=== PATIENT | female | born 1965 | race Caucasian/White ===

== ENCOUNTER 2023-02-18 21:18 | Emergency (ER) | payer BC, SELFPAY ==
[2023-02-18 21:25] VITALS: BP 161/103; PULSE 80; RESP 16; TEMP 37.1; O2SAT 98; BMI 27.5
--- NOTE | 2023-02-18 21:41 | ED_ITS ---
HPI - Abdominal Pain General Chief Complaint: Back Pain/Injury Stated Complaint: LOWER BACK PAIN, GROIN PAIN Time Seen by Provider: 02/18/23 21:31 Source: patient Mode of arrival: walk-in History of Present Illness HPI narrative: past history of colon CA. past partial colectomy. States she is scheduled for repeat CT 03/2023 to monitor her CA. Now presents complaining of left sided flank, LLQ and pelvic pain for past few days. No associated fever or urinary symptoms. Planning a trip at the end of the week and wanted to be checked before going on vacation MD elicited complaint: Reports abdominal pain Related Data Allergies Allergy/AdvReac Type Severity Reaction Status Date / Time No Known Drug Allergies Allergy Verified 02/18/23 21:32 Review of Systems ROS Status of ROS 10 or more systems reviewed and unremarkable except as noted in history and below PFSH PFS Social History Smoking status: Never smoker Exam Constitutional Vital Signs, click to edit/add: Last Vital Signs Temp 98.7 F 02/18/23 21:25 Pulse 80 02/18/23 21:25 Resp 16 02/18/23 21:25 BP 161/103 H 02/18/23 21:25 Pulse Ox 98 02/18/23 21:25 O2 Del Method Room Air 02/18/23 21:25 Common normals: no apparent distress, average body habitus, oriented x3, no limitations, healthy appearing, alert and well nourished Eye Common normals: EOMs intact bilaterally, conjunctivae normal and no scleral icterus Respiratory Common normals: normal respiratory effort, no retractions, no use of accessory muscles and clear to auscultation bilaterally Cardio Common normals: regular rate, regular rhythm, S1 normal heart sound and S2 normal heart sound GI Other: mild tenderness LLQ Extremity Common normals: normal to inspection and full ROM Neuro Common normals: oriented x3, CN's II-XII intact bilaterally, moves all extremities, no focal motor deficits and no sensory deficits noted Psych Attitude: other (distressed about possible cause of her pain) Course Vital Signs Vital signs: Vital Signs Temperature 98.7 F 02/18/23 21:25 Pulse Rate 80 02/18/23 21:25 Respiratory Rate 16 02/18/23 21:25 Blood Pressure 161/103 H 02/18/23 21:25 Pulse Oximetry 98 02/18/23 21:25 Oxygen Delivery Method Room Air 02/18/23 21:25 Temperature 98.7 F 02/18/23 21:25 Pulse Rate 80 02/18/23 21:25 Respiratory Rate 16 02/18/23 21:25 Blood Pressure 161/103 H 02/18/23 21:25 Pulse Oximetry 98 02/18/23 21:25 Oxygen Delivery Method Room Air 02/18/23 21:25 MDM - Abdominal Pain MDM Narrative Medical decision making narrative: patient presents complaining of pain LLQ and pelvis area. concerned about possible recurrence of colon CA. CT with findings of pelvic congestion. Patient informed of the above. given Toradol to use for pain tonight and prescribed Judy ebrex. Advised to follow up with gynecology to discuss best way to manage her pelvic congestion Lab Data Labs: Lab Results 02/18/23 02/18/23 Range/Units 21:35 21:51 WBC 5.8 (4.0-11.0) 10^3/uL RBC 4.16 L (4.20-5.40) 10^6/uL Hgb 13.4 (12.0-16.0) g/dL Hct 40.6 (36.0-48.0) % MCV 97.6 (81.0-99.0) fL MCH 32.2 (26.7-34.0) pg MCHC 33.0 (29.9-35.2) g/dL RDW 12.3 (11.0-15.0) % Plt Count 202 (150-450) 10^3/uL MPV 10.3 (9.5-13.5) fL Neut % (Auto) 60.1 (43.0-75.0) % Lymph % (Auto) 30.0 (20.5-60.0) % [place] % (Auto) 7.1 (1.7-12.0) % Eos % (Auto) 2.1 (0.9-7.0) % Baso % (Auto) 0.5 (0.2-2.0) % Neut # (Auto) 3.5 (1.4-6.5) 10^3/uL Lymph # (Auto) 1.7 (1.2-3.8) 10^3/uL [place] # (Auto) 0.4 (0.3-0.8) 10^3/uL Eos # (Auto) 0.1 (0.0-0.7) 10^3/uL Baso # (Auto) 0.0 (0.0-0.1) 10^3/uL Abs Immat Gran (auto) 0.01 (0.00-0.03) 10^3/uL Imm/Tot Granulo (auto) 0.2 (0.0-0.5) % Sodium 139 (136-145) mmol/L Potassium 3.5 (3.5-5.1) mmol/L Chloride 102 (98-107) mmol/L Carbon Dioxide 27.9 (21.0-32.0) mmol/L Anion Gap 12.6 BUN 20.0 H (7.0-18.0) mg/dL Creatinine 0.99 (0.55-1.02) mg/dL Est GFR ( Amer) >60 (>=60) Est GFR (Non-Af Amer) 58 L (>=60) BUN/Creatinine Ratio 20.2 Glucose 117 H (74-106) mg/dL Calcium 9.0 (8.5-10.1) mg/dL Urine Color Yellow (YELLOW) Urine Clarity Clear (CLEAR) Urine pH 6.5 (5.0-9.0) Ur Specific [place] 1.020 (1.005-1.025) Urine Protein Negative (NEG/TRACE) mg/dL Urine Glucose (UA) Negative (NEGATIVE) mg/dL Urine Ketones Trace A (NEGATIVE) mg/dL Urine Occult Blood Negative (NEGATIVE) Urine Nitrite Negative (NEGATIVE) Urine Bilirubin Negative (NEGATIVE) Urine Urobilinogen 1.0 (0.2-1.0) EU/dL Ur Leukocyte Esterase Negative (NEGATIVE) Imaging Data CT scan - abdomen: My impression: Assigned Patient Location: ER Current Patient Location: ER Accession/Order Number: [id number] Exam Date: 02/18/2023 22:09 Report Date: 02/18/2023 22:59 At the request of: ASHLEY SWEENEY Procedure: CT abdomen pelvis w con EXAMINATION: CT ABDOMEN AND PELVIS WITH IV CONTRAST CLINICAL HISTORY: Left lower quadrant abdominal pain, radiating to the back, hip and groin TECHNIQUE: CT of the abdomen and pelvis was performed using standard technique, scanning from just above the dome of the diaphragm to the symphysis pubis. All CT scans at this facility use dose modulation, iterative reconstruction, and/or weight based dosing when appropriate to reduce radiation dose to as low as reasonably achievable. Contrast: IV: 100 ml of Omnipaque 300 COMPARISON: CT abdomen and pelvis 01/09/2022 and 03/07/2022 RESULT: Liver: 11 mm centrally enhancing lesion right hepatic lobe, stable since 2021 and likely represents a hemangioma. The liver demonstrates homogenous attenuation otherwise. Biliary: No bile duct dilation. Gallbladder is unremarkable. Spleen: No mass. No splenomegaly. Pancreas: No mass or duct dilation. Adrenals: No mass. Kidneys: No renal mass or suspicious enhancement. 2 mm left upper pole nonobstructing calculus. No hydronephrosis. GI tract: Postoperative changes of partial sigmoidectomy with rectosigmoid anastomosis. No bowel dilation or significant wall thickening. Moderate colonic stool. Lymph nodes: No abdominal or pelvic lymphadenopathy. Mesentery/Peritoneum: No ascites or mass. Retroperitoneum: No mass. Vasculature: The celiac axis and SMA are patent. The portal vein and branches, splenic vein, SMV, and hepatic veins are patent. Abdominal aortic atherosclerotic disease without aneurysm. Pelvis: No mass, ascites or fluid collection. Urinary bladder is unremarkable. Prominent periuterine vessels, more prominent on the left.. Tortuous and moderately dilated left ovarian vein (series 5 images 24-47). Bones/Soft Tissues: Degenerative changes. Lower thorax: Unremarkable. IMPRESSION: Multiple dilated periuterine vessels, more prominent on the left, with tortuous and dilated left ovarian vein, concerning for pelvic congestion syndrome. Electronically authenticated by: DEANN VILLARREAL Date: 02/18/2023 22:59 Discharge Plan Discharge Chief Complaint: Back Pain/Injury Clinical Impression: Female pelvic congestion syndrome Instructions: Pelvic Pain in Women (ED) Additional Instructions: follow up with gynecology as discussed Stand Alone Forms: Portal Instructions Referrals: Melissa Worthy MD [Primary Care Provider] - 1 week
[2023-02-18 21:49] LABS: Bilirubin Urine NEGATIVE (NEGATIVE); Blood Urine NEGATIVE (NEGATIVE); Clarity Urine CLEAR (CLEAR); Color Urine YELLOW (YELLOW); Glucose Urine UA NEGATIVE (NEGATIVE); Ketones Urine TRACE mg/dL (NEGATIVE); Leukocyte Esterase Urine NEGATIVE (NEGATIVE); Nitrite Urine NEGATIVE (NEGATIVE); Protein Urine NEGATIVE (NEG/TRACE); pH Urine 6.5 (5.0-9.0)
[2023-02-18 21:50] LABS: Urine Microscopic Indicated NO
[2023-02-18] MEDS: 0.9 % SODIUM CHLORIDE 1,000 ML 999 ML IV (21:56)
[2023-02-18 22:01] LABS: Basophils Percent Auto 0.5 % (0.2-2.0); Eosinophils Absolute Auto 0.1 10^3/uL (0.0-0.7); Eosinophils Percent Auto 2.1 % (0.9-7.0); Hematocrit 40.6 % (36.0-48.0); Hemoglobin 13.4 g/dL (12.0-16.0); Immature Granulocytes Abs Auto 0.01 10^3/uL (0.00-0.03); Immature Granulocytes Pct Auto 0.2 % (0.0-0.5); Lymphocytes Absolute Auto 1.7 10^3/uL (1.2-3.8); Mean Corpuscular Hemoglobin 32.2 pg (26.7-34.0); Mean Corpuscular Volume 97.6 fL (81.0-99.0); Mean Platelet Volume 10.3 fL (9.5-13.5); Monocytes Absolute Auto 0.4 10^3/uL (0.3-0.8); Monocytes Percent Auto 7.1 % (1.7-12.0); Neutrophils Absolute Auto 3.5 10^3/uL (1.4-6.5); Neutrophils Percent Auto 60.1 % (43.0-75.0); Platelet Count 202 10^3/uL (150-450); Red Blood Count 4.16 10^6/uL (4.20-5.40); Red Cell Distribution Width 12.3 % (11.0-15.0); White Blood Count 5.8 10^3/uL (4.0-11.0)
[2023-02-18 22:12] LABS: Anion Gap 12.6; BUN Creatinine Ratio 20.2; Carbon Dioxide 27.9 mmol/L (21.0-32.0); Chloride 102 mmol/L (98-107); Estimated GFR (African America >60 (>=60); Estimated GFR (Non-African Ame 58 (>=60); Glucose 117 mg/dL (74-106); Potassium 3.5 mmol/L (3.5-5.1); Sodium 139 mmol/L (136-145)
[2023-02-18] MEDS: KETOROLAC TROMETHAMINE 30 MG/ML VIAL IVP (22:58)
[2023-02-18] MEDS: KETOROLAC TROMETHAMINE 10 MG TABLET 20 MG PO (23:48)
== END 2023-02-18 23:51 | disposition home or self-care (01) ==
PROVIDERS: Emergency Provider Internal Medicine; PCP Family Medicine
DX: N94.89 Other specified conditions associated with female genital organs and menstrual cycle (principal); Z90.49 Acquired absence of other specified parts of digestive tract; Z85.038 Personal history of other malignant neoplasm of large intestine
CPT/HCPCS: 36415; 74177; 80048; 81003; 85025; 96374; 99285; Q9967

== ENCOUNTER 2023-02-19 14:03 | Outpatient (OUT) | payer BC, SELFPAY ==
--- NOTE | 2023-02-19 | US_ITS ---
The [address] [address] Patient Name: SHU GARDNER MRN: [id number] date: 1965 Sex: F Assigned Patient Location: US Current Patient Location: US Accession/Order Number: [id number] Exam Date: 02/19/2023 14:05 Report Date: 02/19/2023 16:42 At the request of: ALLISON TRAVIS Procedure: US pelvis transvaginal Ultrasound pelvis, non-obstetric CLINICAL: ABNORMAL CAT SCAN LLQ PAIN TECHNIQUE: Transvaginal pelvic ultrasound was performed. FINDINGS: Comparison: CT 02/18/2023 The uterus is anteverted and anteflexed in position. It measures 6.7 x 2.1 x 4.3 cm. Myometrium is mildly heterogeneous with a hypoechoic nodule along the right posterior upper uterine segment favoring an intramural fibroid and measures 1.1 x 1.0 x 0.6 cm. The endometrial complex measures 3 mm in thickness with a trace amount of fluid within the endometrium. Neither ovary is seen. Prominent vessels seen within the left adnexa measuring up to 3.6 mm diameter. No free pelvic fluid. US/US pelvis transvaginal IMPRESSION: 1. 1.1 cm hypoechoic structure in the right posterior uterine wall compatible with an intramural fibroid. 2. Endometrial complex thickness of 3 mm, which is within normal limits, but there is a tiny amount of nonspecific fluid in the endometrium. Repeat ultrasound recommended in 3 months and follow-up with gynecology. 3. Neither ovary is visualized. Incidentally noted are prominent vessels in the left adnexa measuring up to 3.6 mm diameter. This does not meet criteria for pelvic congestion syndrome by ultrasound criteria but this finding is better seen by CT 02/18/2023. Clinical follow-up. Electronically authenticated by: LEVY NEFF Date: 02/19/2023 16:42
== END 2023-02-19 14:04 | disposition home or self-care (01) ==
LOC: US 14:03
PROVIDERS: PCP Family Medicine; Visit Provider Obstetrics & Gynecology
DX: R10.32 Left lower quadrant pain (principal); R10.2 Pelvic and perineal pain
CPT/HCPCS: 76830

== ENCOUNTER 2023-03-17 13:05 | Outpatient (OUT) | payer BC, SELFPAY ==
--- NOTE | 2023-03-17 | XR_ITS ---
The [address] [address] Patient Name: SHU GARDNER MRN: [id number] date: 1965 Sex: F Assigned Patient Location: RAD Current Patient Location: RAD Accession/Order Number: [id number] Exam Date: 03/17/2023 13:22 Report Date: 03/17/2023 15:06 At the request of: CLINT JEAN BAPTISTE Procedure: XR chest 2V EXAM: XR chest 2V HISTORY: Port problems , Neoplasm of sigmoid colon C18.7 COMPARISON: None. TECHNIQUE: PA and lateral views of the chest. FINDINGS: The cardiomediastinal silhouette is normal. Left-sided Mediport with the distal tip in SVC. No focal consolidation is identified. There is no pneumothorax. No pleural effusion is noted. The osseous structures are intact. XR/XR chest 2V IMPRESSION: No acute cardiopulmonary process. Electronically authenticated by: JUAN JOSE HO Date: 03/17/2023 15:06
== END 2023-03-17 13:06 | disposition home or self-care (01) ==
LOC: RAD 13:06
PROVIDERS: PCP Family Medicine; Visit Provider Surgery
DX: C18.7 Malignant neoplasm of sigmoid colon (principal)
CPT/HCPCS: 71046

== ENCOUNTER 2023-05-01 14:09 | Outpatient (OUT) | payer BC, SELFPAY | END 2023-05-01 14:10 | disposition home or self-care (01) | LOC: PST 14:09 | PROVIDERS: PCP Family Medicine; Visit Provider Surgery | DX: Z01.818 Encounter for other preprocedural examination (principal); C18.7 Malignant neoplasm of sigmoid colon ==

== ENCOUNTER 2023-05-07 08:54 | Day surgery (SDC) | payer BC, SELFPAY ==
[2023-05-07 09:05] VITALS: BP 128/82; PULSE 69; RESP 16; TEMP 36.9; O2SAT 98; BMI 28.3
[2023-05-07] MEDS: LACTATED RINGER'S SOLUTION 1,000 ML 50 ML IV (09:11)
--- NOTE | 2023-05-07 09:44 | PM.GSPRC ---
Date of procedure: 05/07/23 Indications for Procedure: history of colon cancer Pre-op diagnosis: history of colon cancer Procedure: colonoscopy Findings: anastomosis at 20 cm Anesthesia: MAC Surgeon: Asher Jade Procedure Summary: PROCEDURE: The patient was taken to the Endoscopy Suite, placed in the left lateral recumbent position, given IV sedation as above. A rectal digital exam was performed. The sphincter tone was found to be normal. No rectal masses were appreciated. The Olympus video colonoscope was advanced under direct visualization to the rectum through the anastomosis at 20 cm to the descending colon, transverse colon and ascending colon to the ileocecal valve. The underside of the valve was seen. The appendiceal lumen was visualized. The scope was slowly withdrawn with air being desufflated as it was withdrawn. No gross tumors, polyps or diverticula were seen. The patient tolerated the procedure well and went to the Recovery Area in satisfactory condition. I recommend the patient use a bulk laxative on a regular basis and follow upPROCEDURE: The patient was taken to the Endoscopy Suite, placed in the left lateral recumbent position, given IV sedation as above. A rectal digital exam was performed. The sphincter tone was found to be normal. No rectal masses were appreciated. The Olympus video colonoscope was advanced under direct visualization to the rectum, sigmoid colon, descending colon, transverse colon and ascending colon to the ileocecal valve. The underside of the valve was seen. The scope was slowly withdrawn with air being desufflated as it was withdrawn. No gross tumors, polyps or diverticula were seen. The patient tolerated the procedure well and went to the Recovery Area in satisfactory condition. I recommend the patient use a bulk laxative on a regular basis and follow up as needed. every year five years normal scope was back normal. Surveillance colonoscopy as recommended in 3-5 years. Estimated blood loss (mL): 0 Complications: No Pathology: none sent Condition: stable Disposition: PACU
[2023-05-07 10:16] VITALS: BP 104/77; PULSE 71; RESP 16; TEMP 36.2; O2SAT 97
[2023-05-07 10:31] VITALS: BP 113/73; PULSE 68; RESP 16; O2SAT 97
[2023-05-07 10:46] VITALS: BP 96/63; PULSE 67; RESP 16; O2SAT 97
== END 2023-05-07 10:49 | disposition home or self-care (01) ==
PROVIDERS: PCP Family Medicine; Visit Provider Surgery
PROC: (CPT 45378; principal; 2023-05-07 09:00)
DX: Z85.038 Personal history of other malignant neoplasm of large intestine (principal); Z79.899 Other long term (current) drug therapy; Z87.891 Personal history of nicotine dependence; Z90.49 Acquired absence of other specified parts of digestive tract
CPT/HCPCS: 45378; J2704

== ENCOUNTER 2023-06-07 09:06 | Emergency (ER) | payer BC, SELFPAY ==
[2023-06-07 09:11] VITALS: BP 160/92; PULSE 75; RESP 18; TEMP 36.7; O2SAT 100; BMI 28.0
--- NOTE | 2023-06-07 09:27 | CT_ITS ---
The [address] [address] Patient Name: SHU GARDNER MRN: [id number] date: 1965 Sex: F Assigned Patient Location: ER Current Patient Location: ER Accession/Order Number: [id number] Exam Date: 06/07/2023 10:05 Report Date: 06/07/2023 10:38 At the request of: HECTOR FOSTER Procedure: CT head/brain wo con EXAMINATION: CT head/brain wo con HISTORY: headache ; scalp irritation COMPARISON: No relevant comparison available. TECHNIQUE: Axial CT images were obtained without IV contrast. Dose reduction techniques were achieved by using automated exposure control and/or adjustment of mA and/or kV according to patient size and/or use of iterative reconstruction technique. FINDINGS: BRAIN: No edema, hemorrhage, mass, acute infarction, or inappropriate atrophy. CSF SPACES: No hydrocephalus, subarachnoid hemorrhage, or mass. Appropriate for age. SKULL: No fracture, mass, or other significant visible lesion. SINUSES: No significant mucosal thickening or fluid on the limited views. ORBITS: No appreciable abnormality on the limited views. OTHER: Negative CT/CT head/brain wo con IMPRESSION: 1. Normal examination. Electronically authenticated by: NEDA COULTER Date: 06/07/2023 10:38
--- NOTE | 2023-06-07 09:28 | ED_ITS ---
HPI - General Adult General Chief complaint: Headache Stated complaint: HEADACHE Time Seen by Provider: 06/07/23 09:17 Source: patient Mode of arrival: walk-in Limitations: no limitations History of Present Illness HPI narrative: Patient presents with pain across the frontal scalp and radiation into the posterior neck and superior trapezii. No recent injury. She had previously been diagnosed with colon cancer. She had colectomy and chemotherapy and had a follow up colonoscopy 05/07/23, which was negative. Two days later she developed pain across the forehead. She saw her PCP, who told her she had fluid behind the ears, possibly sinusitis and prescribed Bactrim. The patient finished the antibiotic,. Initially she felt better but the pain subsequently worsened and expanded from the forehead to the neck and shoulders as described. Areas are not tender to the touch. She is concerned about a potentially serious etiology. She had a home covid test last week that was negative. She also saw her eye physician and had her eye pressures checked because of glaucoma history - they were negative. Related Data Home Medications Medication Instructions Recorded Confirmed brimonidine 0.2 % eye drops drp ophthalmic (eye) 05/01/23 celecoxib 200 mg capsule (Celebrex) 200 mg PO DAILY 05/01/23 05/07/23 cholecalciferol (vitamin D3) 25 1,000 unit PO DAILY 05/01/23 05/07/23 mcg (1,000 unit) capsule dorzolamide 22.3 mg-timolol 6.8 ophthalmic (eye) 05/01/23 mg/mL eye drops latanoprost 0.005 % eye drops drp ophthalmic (eye) 05/01/23 omega 0-pud-vji-fish oil 1,000 mg 1 cap PO DAILY 05/01/23 05/07/23 (120 mg-180 mg) capsule (Fish Oil) omeprazole 20 mg capsule,delayed 20 mg PO Q8H PRN heartburn 05/01/23 05/07/23 release ondansetron HCl 8 mg tablet 8 mg PO Q8H PRN nausea and vomiting 05/01/23 05/07/23 Allergies Allergy/AdvReac Type Severity Reaction Status Date / Time hydrocodone AdvReac Nausea Verified 06/07/23 09:20 quinoa AdvReac Abdominal Uncoded 06/07/23 09:20 Pain PFSH PFSH Medical History (Updated 06/07/23 @ 10:52 by Hector Foster) Abdominal pain ?R10.9 - Unspecified abdominal pain (ICD-10) Bradycardia ?R00.1 - Bradycardia, unspecified (ICD-10) Dry eyes ?H04.123 - Dry eye syndrome of bilateral lacrimal glands (ICD-10) Glaucoma ?H40.9 - Unspecified glaucoma (ICD-10) History of blood transfusion ?Z92.89 - Personal history of other medical treatment (ICD-10) Menopause ?Z78.0 - Asymptomatic menopausal state (ICD-10) Migraine ?G43.909 - Migraine, unspecified, not intractable, without status migrainosus (ICD-10) Port-A-Cath in place (05/22/22) ?Z95.828 - Presence of other vascular implants and grafts (ICD-10) bleeding ?O72.1 - Other immediate hemorrhage (ICD-10) Primary malignant neoplasm of sigmoid colon (~03/2022) ?C18.7 - Malignant neoplasm of sigmoid colon (ICD-10) Seasonal allergies ?J30.2 - Other seasonal allergic rhinitis (ICD-10) Surgical History (Updated 05/01/23 @ 10:07 by Theresa Aguayo NP) H/O section ?Z98.891 - History of uterine scar from previous surgery (ICD-10) H/O colonoscopy ?Z98.890 - Other specified postprocedural states (ICD-10) H/O dilation and curettage ?Z98.890 - Other specified postprocedural states (ICD-10) H/O wisdom tooth extraction ?K08.409 - Partial loss of teeth, unspecified cause, unspecified class (ICD- 10) History of colon resection (04/10/22) ?Z90.49 - Acquired absence of other specified parts of digestive tract (ICD- 10) History of hernia repair ?Z98.890 - Other specified postprocedural states (ICD-10) ?Z87.19 - Personal history of other diseases of the digestive system (ICD-10) Family History (Updated 05/01/23 @ 10:02 by Theresa Aguayo NP) Other Dementia Family history of diabetes mellitus Family history of hypertension Family history of myocardial infarction Heart disease Parkinson's disease dementia Social History (Updated 05/01/23 @ 10:07 by Theresa Aguayo NP) Within the past year, how often did you have a drink containing alcohol: 2-3 times a week Smoking status: Never smoker Non-prescribed substance use: denies use 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 afebrile General: Well-appearing and in no apparent distress. Skin: Warm, dry, no pallor noted. No rash. Head: Normocephalic, atraumatic. No sinus tenderness. Neck: Supple, non-tender. no cervical lymphadenopathy. No meningismus. Eye: Pupils are equal, round and EOMI. No scleral icterus. Ears, Nose, Mouth, and Throat: TMs are clear, no nasal mucosal hypertrophy. Oral mucosa is moist, no posterior oropharynx erythema, uvula is mid-line Cardiovascular: Regular Rate and Rhythm without murmur, gallop or rub. Respiratory: No accessory muscle use or respiratory distress. Lungs are clear to auscultation, no wheezing, rales or rhonchi Musculoskeletal: normal ROM GI: Abdomen is soft, non-distended. Normal bowel sounds. No tenderness to palpation. No rebound, guarding, or rigidity noted. Neurological: A&O x4. No cranial nerve dysfunction observed. No truncal atax ia. Moves all extremities. Sensation intact. Psychiatric: Cooperative and interactive. Normal mood and affect. Constitutional Vital Signs, click to edit/add: Last Vital Signs Temp 98.1 F 06/07/23 09:11 Pulse 59 L 06/07/23 10:09 Resp 16 06/07/23 10:09 BP 134/87 06/07/23 10:09 Pulse Ox 98 06/07/23 10:09 O2 Del Method Room Air 06/07/23 09:11 Course Vital Signs Vital signs: Vital Signs Temperature 98.1 F 06/07/23 09:11 Pulse Rate 75 06/07/23 09:11 Respiratory Rate 18 06/07/23 09:11 Blood Pressure 160/92 H 06/07/23 09:11 Pulse Oximetry 100 06/07/23 09:11 Oxygen Delivery Method Room Air 06/07/23 09:11 Temperature 98.1 F 06/07/23 09:11 Pulse Rate 59 L 06/07/23 10:09 Respiratory Rate 16 06/07/23 10:09 Blood Pressure 134/87 06/07/23 10:09 Pulse Oximetry 98 06/07/23 10:09 Oxygen Delivery Method Room Air 06/07/23 09:11 Medical Decision Making MDM Narrative Medical decision making narrative: peripheral IV established so that the patient received normal saline IV fluid, IV Toradol and IV Zofran. She was sent for noncontrast CT scan of the brain. Covid swab obtained. Covid negative. Head CT without any worrisome pathology. She felt only slightly better after initial ED treatment so I ordered IV Solumedrol and IV Benadryl. She was relived that the head CT did not show anything worrisome. She said that she has zofran and T3 at home. She will be discharged home with recommendation to stay hydrated, take zofran and T3 with the addition of benadryl and ibuprofen as needed. Lab Data Lab results reviewed: Yes I reviewed the patient's lab results Labs: Lab Results 06/07/23 Range/Units 09:50 SARS-CoV-2 (PCR) Negative (NEGATIVE) Imaging Data CT scan - head: Radiologist's impression: Patient Name: SHU GARDNER MRN: [id number] date: 1965 Sex: F Assigned Patient Location: ER Current Patient Location: ER Accession/Order Number: [id number] Exam Date: 06/07/2023 10:05 Report Date: 06/07/2023 10:38 At the request of: HECTOR FOSTER Procedure: CT head/brain wo con EXAMINATION: CT head/brain wo con HISTORY: headache ; scalp irritation COMPARISON: No relevant comparison available. TECHNIQUE: Axial CT images were obtained without IV contrast. Dose reduction techniques were achieved by using automated exposure control and/or adjustment of mA and/or kV according to patient size and/or use of iterative reconstruction technique. FINDINGS: BRAIN: No edema, hemorrhage, mass, acute infarction, or inappropriate atrophy. CSF SPACES: No hydrocephalus, subarachnoid hemorrhage, or mass. Appropriate for age. SKULL: No fracture, mass, or other significant visible lesion. SINUSES: No significant mucosal thickening or fluid on the limited views. ORBITS: No appreciable abnormality on the limited views. OTHER: Negative IMPRESSION: 1. Normal examination. Electronically authenticated by: NEDA COULTER Date: 06/07/2023 10:38 Discharge Plan Discharge Chief Complaint: Headache Clinical Impression: Headache Patient Disposition: Home, Self-Care Time of Disposition Decision: 10:52 Prescriptions / Home Meds: No Action latanoprost 0.005 % drops OPHTHALMIC (EYE) ondansetron HCl 8 mg tablet 8 mg PO Q8H PRN (Reason: nausea and vomiting) brimonidine 0.2 % drops OPHTHALMIC (EYE) omeprazole 20 mg capsule,delayed release(DR/EC) 20 mg PO Q8H PRN (Reason: heartburn) dorzolamide-timolol 22.3-6.8 mg/mL drops OPHTHALMIC (EYE) celecoxib [Celebrex] 200 mg capsule 200 mg PO DAILY cholecalciferol (vitamin D3) 25 mcg (1,000 unit) capsule 1,000 unit PO DAILY omega 6-yua-beu-fish oil [Fish Oil] 1,000 mg (120 mg-180 mg) capsule 1 cap PO DAILY Instructions: Acute Headache (ED) Stand Alone Forms: Portal Instructions Referrals: Melissa Worthy MD [Primary Care Provider] - 1 week
[2023-06-07] MEDS: 0.9 % SODIUM CHLORIDE 1,000 ML 1000 ML IV (09:53)
[2023-06-07] MEDS: KETOROLAC TROMETHAMINE 30 MG/ML VIAL IVP (09:54)
[2023-06-07] MEDS: ONDANSETRON PF 4 MG/2 ML VIAL IV (09:54)
[2023-06-07 10:07] LABS: SARS-CoV-2 Ag NEGATIVE (NEGATIVE)
[2023-06-07 10:09] VITALS: BP 134/87; PULSE 59; RESP 16; O2SAT 98
[2023-06-07] MEDS: METHYLPREDNISOLONE SOD SUCC PF 125 MG/2 ML VIAL IVP (11:25)
[2023-06-07] MEDS: HEPARIN SODIUM (PORCINE) PF LOCK FLUSH 500 UNIT/5 ML SYRINGE 250 UNIT IV (11:25)
[2023-06-07 11:43] VITALS: BP 129/86; PULSE 51; RESP 16; O2SAT 99
[2023-06-07 15:00] LABS: SARS-CoV-2 NAA NOT DETECTED (NOT DETECTE)
== END 2023-06-07 11:45 | disposition home or self-care (01) ==
PROVIDERS: Emergency Provider Emergency Medicine; PCP Family Medicine
DX: R51.9 Headache, unspecified (principal); Z79.899 Other long term (current) drug therapy; Z98.891 History of uterine scar from previous surgery; Z98.890 Other specified postprocedural states; Z90.49 Acquired absence of other specified parts of digestive tract; Z20.822 Contact with and (suspected) exposure to COVID-19
CPT/HCPCS: 70450; 87635; 87811; 96374; 96375; 99285; J2930

== ENCOUNTER 2023-06-12 09:09 | Outpatient (OUT) | payer BC, SELFPAY ==
--- NOTE | 2023-06-12 09:14 | CT_ITS ---
The [address] [address] Patient Name: SHU GARDNER MRN: [id number] date: 1965 Sex: F Assigned Patient Location: CT Current Patient Location: CT Accession/Order Number: [id number] Exam Date: 06/12/2023 10:25 Report Date: 06/12/2023 12:20 At the request of: ISAÍAS GARCIA Procedure: CT chest w con EXAM: CT chest w con HISTORY: Malignant Neoplasm Of Colon C18.9 COMPARISON: None. TECHNIQUE: CT imaging obtained through the chest with intravenous contrast. Coronal and axial MIP reformatted images obtained. FINDINGS: Heart size is normal. No pericardial effusion. Aberrant right subclavian artery, otherwise normal thoracic vasculature. No thoracic lymphadenopathy. Central tracheobronchial tree is patent. No pleural effusion or pneumothorax. No suspicious pulmonary nodule. Left chest wall port with catheter tip in the mid SVC. Bones and soft tissues: No suspicious bone findings. Multilevel degenerative changes and endplate Schmorl's nodes throughout the thoracic spine. Partially imaged upper abdomen: Limited. CT/CT chest w con IMPRESSION: No evidence for metastatic disease in the chest Electronically authenticated by: BILL PUGH Date: 06/12/2023 12:20
--- NOTE | 2023-06-12 09:14 | CT_ITS ---
The [address] [address] Patient Name: SHU GARDNER MRN: [id number] date: 1965 Sex: F Assigned Patient Location: CT Current Patient Location: CT Accession/Order Number: [id number] Exam Date: 06/12/2023 10:25 Report Date: 06/12/2023 12:27 At the request of: ISAÍAS GARCIA Procedure: CT abdomen pelvis w con EXAM: CT abdomen pelvis w con HISTORY: Malignant Neoplasm Of Colon C18.9 COMPARISON: CT from 01/09/2022. TECHNIQUE: Helical CT images from the lung bases through the symphysis pubis were obtained with contrast. Coronal and sagittal reformatted images were generated at a workstation for further assessment. FINDINGS: Lower chest: No consolidation. No pleural effusion or pneumothorax. Liver: No suspicious liver lesions. Redemonstrated right hepatic lobe lesion on series 6 image 26, measuring 12 mm with eccentric enhancement, not significantly changed since at least 01/09/2022, favoring a hemangioma. Portal veins appear patent. Gallbladder: No gallstones. No evidence of acute cholecystitis. Spleen: Normal size. Pancreas: No suspicious pancreatic lesions. The pancreatic duct is not dilated. Adrenal glands: No adrenal nodules. Kidneys: No hydronephrosis or obstructing renal stones. Bladder / Pelvic organs: Unremarkable. Bowel: No bowel wall thickening. The appendix is not visualized. There is no evidence for appendicitis. Resection changes from a sigmoid: And reanastomosis without evidence for masslike thickening or obstruction. There is a large colonic stool burden suggesting constipation are Lymph nodes: No retroperitoneal, mesenteric, or pelvic lymphadenopathy. Peritoneum / Retroperitoneum: No free fluid or air within the abdomen. Vessels: No infrarenal aortic aneurysm. There is moderate aortoiliac calcification. Bones and soft tissues: No suspicious lesion in the bones. There are degenerative facet changes throughout the lumbar spine. CT/CT abdomen pelvis w con IMPRESSION: Postsurgical changes of the sigmoid colon, without convincing evidence for metastatic disease. Large colonic stool burden suggesting constipation. Right hepatic lobe lesion with eccentric enhancement, seen since at least 01/09/2022, is most compatible with a hemangioma. Electronically authenticated by: BILL PUGH Date: 06/12/2023 12:27
[2023-06-12 11:08] LABS: Eosinophils Absolute Auto 0.1 10^3/uL (0.0-0.7); Eosinophils Percent Auto 1.5 % (0.9-7.0); Hematocrit 41.6 % (36.0-48.0); Hemoglobin 13.4 g/dL (12.0-16.0); Lymphocytes Absolute Auto 1.6 10^3/uL (1.2-3.8); Lymphocytes Percent Auto 41.4 % (20.5-60.0); Mean Corpuscular HGB Conc 32.2 g/dL (29.9-35.2); Mean Corpuscular Hemoglobin 31.6 pg (26.7-34.0); Mean Corpuscular Volume 98.1 fL (81.0-99.0); Mean Platelet Volume 10.4 fL (9.5-13.5); Monocytes Absolute Auto 0.3 10^3/uL (0.3-0.8); Monocytes Percent Auto 7.9 % (1.7-12.0); Neutrophils Absolute Auto 1.9 10^3/uL (1.4-6.5); Neutrophils Percent Auto 48.2 % (43.0-75.0); Platelet Count 204 10^3/uL (150-450); Red Blood Count 4.24 10^6/uL (4.20-5.40); White Blood Count 3.9 10^3/uL (4.0-11.0)
[2023-06-12 12:19] LABS: Alanine Aminotransferase 27 U/L (14-59); Albumin Globulin Ratio 1.2; Albumin Level 4.1 g/dL (3.4-5.0); Alkaline Phosphatase 79 U/L (46-116); Aspartate Amino Transferase 18 U/L (15-37); BUN Creatinine Ratio 33.3; Bilirubin Total 0.4 mg/dL (0.2-1.0); Calcium 9.1 mg/dL (8.5-10.1); Carbon Dioxide 29.2 mmol/L (21.0-32.0); Chloride 100 mmol/L (98-107); Estimated GFR (African America >60 (>=60); Estimated GFR (Non-African Ame >60 (>=60); Globulin 3.3 g/dL; Glucose 93 mg/dL (74-106); Potassium 4.2 mmol/L (3.5-5.1); Sodium 135 mmol/L (136-145); Total Protein 7.4 g/dL (6.4-8.2)
[2023-06-13 04:07] LABS: CEA 2.8 ng/mL (0.0-4.7)
== END 2023-06-12 09:10 | disposition home or self-care (01) ==
LOC: CT 09:09
PROVIDERS: PCP Family Medicine; Visit Provider Internal Medicine
DX: C18.9 Malignant neoplasm of colon, unspecified (principal)
CPT/HCPCS: 36415; 71260; 74177; 80053; 82378; 85025; Q9967

== ENCOUNTER 2023-08-25 09:22 | Outpatient (RCR) | payer BC, SELFPAY ==
[2023-08-25] MEDS: HEPARIN SODIUM (PORCINE) PF LOCK FLUSH 500 UNIT/5 ML SYRINGE IV (09:18)
[2023-08-25] MEDS: 0.9 % SODIUM CHLORIDE 10 ML SYRINGE - SALINE FLUSH IV (09:18)
[2023-08-25 09:36] VITALS: BP 140/82; PULSE 66; RESP 16; TEMP 37.4; O2SAT 97
--- NOTE | 2023-08-25 09:39 | PC.NURSE ---
0905: Pt. to [facility] amb. for port flush. Seated in recliner. VSS. Using sterile technique, left ant. port a cath accessed using 19 gauge Bowens needle. Flushes easily with good blood return. Flushed with Heparin 500units. Port de-accessed. Trace bleeding to site. Covered with sterile 2x2. Pt. tolerated with min. c/o disomfort. 0919: Pt. d/c'd amb. to home with son.
== END 2023-09-04 23:59 | disposition home or self-care (01) ==
LOC: INF 09:22
PROVIDERS: PCP Family Medicine; Visit Provider Internal Medicine
DX: Z45.2 Encounter for adjustment and management of vascular access device (principal)
CPT/HCPCS: G0463

== ENCOUNTER 2023-09-18 09:17 | Outpatient (OUT) | payer BC, SELFPAY ==
--- NOTE | 2023-09-18 09:22 | CT_ITS ---
[address] [address] Patient Name: SHU GARDNER MRN: [id number] date: 1965 Sex: F Assigned Patient Location: CT Current Patient Location: CT Accession/Order Number: [id number] Exam Date: 09/18/2023 10:30 Report Date: 09/18/2023 12:14 At the request of: NON-STAFF PHYSICIAN Procedure: CT abdomen pelvis w con EXAMINATION: CT chest w con, CT abdomen pelvis w con HISTORY: c18.9 malignant neoplasm of colon, Z01.89 ; follow-up COMPARISON: CT chest abdomen pelvis 06/12/2023, CT abdomen pelvis 01/09/2022 TECHNIQUE: Axial, Coronal, and Sagittal CT images were obtained without and/or with IV contrast as indicated by examination type. Dose reduction techniques were achieved by using automated exposure control and/or adjustment of mA and/or kV according to patient size and/or use of iterative reconstruction technique. FINDINGS: LUNGS: No visible pulmonary disease. PLEURA: No mass or effusion. VASCULATURE: No visible pulmonary arterial thrombus or attenuation. LEON: No mass or adenopathy. MEDIASTINUM: No mass or adenopathy. CARDIAC: No enlargement, pericardial thickening, or pericardial effusion. CHEST WALL: Port-A-Cath within anterior left chest wall with distal catheter tip in superior vena cava. No mass or axillary adenopathy. LIVER: Stable small anterior right hepatic lobe lesion favoring a hemangioma. BILIARY: No dilatation or calcification. PANCREAS: No lesion, fluid collection, ductal dilatation, or atrophy. SPLEEN: No enlargement or focal lesion. ADRENALS: No mass or enlargement. KIDNEYS: No mass, obstruction, or calcification. BOWEL/MESENTERY: Prior distal sigmoid resection and anastomosis. No visible mass, obstruction, or bowel wall thickening. Normal appendix. AORTA/VASCULAR: No aneurysm. RETROPERITONEUM: No mass or adenopathy. LYMPH NODES: No adenopathy. URINARY BLADDER: No visible focal wall thickening, lesion, or calculus. PELVIC ORGANS: No visible mass. Pelvic organs appropriate for patient age. ABDOMINAL WALL: Eventration of midline anterior abdominal wall at and below level of umbilicus likely secondary to prior surgery. BONES: No bony lesion or fracture. OTHER: Negative. CT/CT abdomen pelvis w con IMPRESSION: 1. No evidence of recurrent or metastatic disease within the chest, abdomen, pelvis. 2. Stable small lesion within anterior right hepatic lobe favoring a hemangioma. 3. Prior sigmoid resection and anastomosis; no suspicious findings. 4. Postsurgical mild eventration of the lower anterior abdominal wall. No hernia. Electronically authenticated by: NEDA COULTER Date: 09/18/2023 12:14
--- NOTE | 2023-09-18 09:23 | CT_ITS ---
[address] [address] Patient Name: SHU GARDNER MRN: [id number] date: 1965 Sex: F Assigned Patient Location: CT Current Patient Location: CT Accession/Order Number: [id number] Exam Date: 09/18/2023 10:30 Report Date: 09/18/2023 12:14 At the request of: NON-STAFF PHYSICIAN Procedure: CT chest w con EXAMINATION: CT chest w con, CT abdomen pelvis w con HISTORY: c18.9 malignant neoplasm of colon, Z01.89 ; follow-up COMPARISON: CT chest abdomen pelvis 06/12/2023, CT abdomen pelvis 01/09/2022 TECHNIQUE: Axial, Coronal, and Sagittal CT images were obtained without and/or with IV contrast as indicated by examination type. Dose reduction techniques were achieved by using automated exposure control and/or adjustment of mA and/or kV according to patient size and/or use of iterative reconstruction technique. FINDINGS: LUNGS: No visible pulmonary disease. PLEURA: No mass or effusion. VASCULATURE: No visible pulmonary arterial thrombus or attenuation. LEON: No mass or adenopathy. MEDIASTINUM: No mass or adenopathy. CARDIAC: No enlargement, pericardial thickening, or pericardial effusion. CHEST WALL: Port-A-Cath within anterior left chest wall with distal catheter tip in superior vena cava. No mass or axillary adenopathy. LIVER: Stable small anterior right hepatic lobe lesion favoring a hemangioma. BILIARY: No dilatation or calcification. PANCREAS: No lesion, fluid collection, ductal dilatation, or atrophy. SPLEEN: No enlargement or focal lesion. ADRENALS: No mass or enlargement. KIDNEYS: No mass, obstruction, or calcification. BOWEL/MESENTERY: Prior distal sigmoid resection and anastomosis. No visible mass, obstruction, or bowel wall thickening. Normal appendix. AORTA/VASCULAR: No aneurysm. RETROPERITONEUM: No mass or adenopathy. LYMPH NODES: No adenopathy. URINARY BLADDER: No visible focal wall thickening, lesion, or calculus. PELVIC ORGANS: No visible mass. Pelvic organs appropriate for patient age. ABDOMINAL WALL: Eventration of midline anterior abdominal wall at and below level of umbilicus likely secondary to prior surgery. BONES: No bony lesion or fracture. OTHER: Negative. CT/CT chest w con IMPRESSION: 1. No evidence of recurrent or metastatic disease within the chest, abdomen, pelvis. 2. Stable small lesion within anterior right hepatic lobe favoring a hemangioma. 3. Prior sigmoid resection and anastomosis; no suspicious findings. 4. Postsurgical mild eventration of the lower anterior abdominal wall. No hernia. Electronically authenticated by: NEDA COULTER Date: 09/18/2023 12:14
[2023-09-18 10:33] LABS: Basophils Absolute Auto 0.1 10^3/uL (0.0-0.1); Basophils Percent Auto 1.1 % (0.2-2.0); Eosinophils Absolute Auto 0.1 10^3/uL (0.0-0.7); Eosinophils Percent Auto 2.2 % (0.9-7.0); Hematocrit 42.5 % (36.0-48.0); Hemoglobin 13.5 g/dL (12.0-16.0); Immature Granulocytes Abs Auto 0.01 10^3/uL (0.00-0.03); Immature Granulocytes Pct Auto 0.2 % (0.0-0.5); Lymphocytes Absolute Auto 2.6 10^3/uL (1.2-3.8); Lymphocytes Percent Auto 56.8 % (20.5-60.0); Mean Corpuscular HGB Conc 31.8 g/dL (29.9-35.2); Mean Corpuscular Hemoglobin 31.5 pg (26.7-34.0); Mean Corpuscular Volume 99.1 fL (81.0-99.0); Mean Platelet Volume 11.1 fL (9.5-13.5); Monocytes Absolute Auto 0.4 10^3/uL (0.3-0.8); Monocytes Percent Auto 8.2 % (1.7-12.0); Neutrophils Absolute Auto 1.5 10^3/uL (1.4-6.5); Neutrophils Percent Auto 31.5 % (43.0-75.0); Platelet Count 196 10^3/uL (150-450); Red Blood Count 4.29 10^6/uL (4.20-5.40); Red Cell Distribution Width 12.2 % (11.0-15.0); White Blood Count 4.6 10^3/uL (4.0-11.0)
[2023-09-18 11:38] LABS: Alanine Aminotransferase 26 U/L (14-59); Albumin Globulin Ratio 1.2; Albumin Level 3.8 g/dL (3.4-5.0); Alkaline Phosphatase 89 U/L (46-116); Anion Gap 12.2; Aspartate Amino Transferase 19 U/L (15-37); BUN Creatinine Ratio 18.3; Bilirubin Total 0.4 mg/dL (0.2-1.0); Calcium 8.9 mg/dL (8.5-10.1); Chloride 105 mmol/L (98-107); Estimated GFR (African America >60 (>=60); Estimated GFR (Non-African Ame >60 (>=60); Globulin 3.3 g/dL; Glucose 84 mg/dL (74-106); Potassium 4.2 mmol/L (3.5-5.1); Sodium 142 mmol/L (136-145); Total Protein 7.1 g/dL (6.4-8.2)
[2023-09-19 04:07] LABS: CEA 2.8 ng/mL (0.0-4.7)
== END 2023-09-18 09:18 | disposition home or self-care (01) ==
LOC: CT 09:17
PROVIDERS: PCP Family Medicine
DX: C18.9 Malignant neoplasm of colon, unspecified (principal); Z01.89 Encounter for other specified special examinations
CPT/HCPCS: 36415; 71260; 74177; 80053; 82378; 85025; Q9967

== ENCOUNTER 2023-11-26 07:18 | Outpatient (RCR) | payer BC, SELFPAY ==
--- NOTE | 2023-11-26 09:19 | PC.NURSE ---
0900: Pt. to [facility] amb. for lab draw and port flush. Seated in recliner. Using sterile technique, left chest port accessed per this RN. Flushes easily and able to aspirate blood easily. Blood obtained for ordered labs. Port flushed with saline and Heparin 500 units. Port de-accessed. No bleeding from site. Covered with cotton ball prophylactically. Pt. tolerated without c/o. 0914: D/c'd amb. to home.
== END 2023-11-26 09:20 | disposition home or self-care (01) ==
LOC: INF 07:18
PROVIDERS: PCP Family Medicine; Visit Provider Internal Medicine
DX: Z45.2 Encounter for adjustment and management of vascular access device (principal)

== ENCOUNTER 2023-11-26 09:21 | Outpatient (RCR) | payer BC, SELFPAY ==
[2023-11-26] MEDS: HEPARIN SODIUM (PORCINE) PF LOCK FLUSH 500 UNIT/5 ML SYRINGE IV (09:18)
--- NOTE | 2023-11-26 09:24 | PC.NURSE ---
0900: Pt. to [facility] amb. for lab draw and port flush. Seated in recliner. Using sterile technique, left chest port accessed per this RN. Flushes easily and able to aspirate blood easily. Blood obtained for ordered labs. Port flushed with saline and Heparin 500 units. Port de-accessed. No bleeding from site. Covered with cotton ball prophylactically. Pt. tolerated without c/o. 0914: D/c'd amb. to home.
[2023-11-26 10:19] LABS: Estimated Average Glucose 94 mg/dL; Glycohemoglobin A1C 4.9 % (4.5-6.2)
[2023-11-26 10:23] LABS: Basophils Percent Auto 0.9 % (0.2-2.0); Eosinophils Absolute Auto 0.1 10^3/uL (0.0-0.7); Eosinophils Percent Auto 2.4 % (0.9-7.0); Hematocrit 41.5 % (36.0-48.0); Hemoglobin 13.4 g/dL (12.0-16.0); Immature Granulocytes Abs Auto 0.01 10^3/uL (0.00-0.03); Immature Granulocytes Pct Auto 0.2 % (0.0-0.5); Lymphocytes Absolute Auto 2.1 10^3/uL (1.2-3.8); Lymphocytes Percent Auto 44.7 % (20.5-60.0); Mean Corpuscular HGB Conc 32.3 g/dL (29.9-35.2); Mean Corpuscular Hemoglobin 31.5 pg (26.7-34.0); Mean Corpuscular Volume 97.4 fL (81.0-99.0); Mean Platelet Volume 11.4 fL (9.5-13.5); Monocytes Absolute Auto 0.4 10^3/uL (0.3-0.8); Monocytes Percent Auto 8.5 % (1.7-12.0); Neutrophils Percent Auto 43.3 % (43.0-75.0); Platelet Count 210 10^3/uL (150-450); Red Blood Count 4.26 10^6/uL (4.20-5.40); Red Cell Distribution Width 13.2 % (11.0-15.0); White Blood Count 4.6 10^3/uL (4.0-11.0)
[2023-11-26 11:26] LABS: Anion Gap 12.5; BUN Creatinine Ratio 28.1; Calcium 9.5 mg/dL (8.5-10.1); Carbon Dioxide 28.5 mmol/L (21.0-32.0); Chloride 105 mmol/L (98-107); Estimated GFR (African America >60 (>=60); Estimated GFR (Non-African Ame >60 (>=60); Glucose 100 mg/dL (74-106); Sodium 142 mmol/L (136-145)
[2023-11-26 11:27] LABS: Alanine Aminotransferase 29 U/L (14-59); Albumin Globulin Ratio 1.1; Albumin Level 3.9 g/dL (3.4-5.0); Alkaline Phosphatase 101 U/L (46-116); Aspartate Amino Transferase 19 U/L (15-37); Bilirubin Total 0.5 mg/dL (0.2-1.0); Chol HDL Ratio 5.8; Cholesterol 250 mg/dL (<=200); Globulin 3.5 g/dL; HDL Cholesterol 43 mg/dL (40-60); Total Protein 7.4 g/dL (6.4-8.2); Triglycerides 140 mg/dL (<=150)
[2023-11-26 11:28] LABS: Thyroid Stimulating Hormone 1.818 uIU/mL (0.358-3.740)
== END 2023-12-05 23:59 | disposition home or self-care (01) ==
LOC: INF 09:21
PROVIDERS: PCP Family Medicine; Visit Provider Family Medicine
DX: Z00.00 Encounter for general adult medical examination without abnormal findings (principal); Z45.2 Encounter for adjustment and management of vascular access device
CPT/HCPCS: 36591; 80053; 80061; 83036; 84443; 85025

== ENCOUNTER 2024-01-15 08:35 | Outpatient (OUT) | payer BC, SELFPAY ==
[2024-01-15 09:31] LABS: Basophils Absolute Auto 0.1 10^3/uL (0.0-0.1); Eosinophils Absolute Auto 0.1 10^3/uL (0.0-0.7); Eosinophils Percent Auto 1.8 % (0.9-7.0); Hematocrit 42.6 % (36.0-48.0); Hemoglobin 13.7 g/dL (12.0-16.0); Immature Granulocytes Abs Auto 0.01 10^3/uL (0.00-0.03); Immature Granulocytes Pct Auto 0.2 % (0.0-0.5); Lymphocytes Percent Auto 39.4 % (20.5-60.0); Mean Corpuscular HGB Conc 32.2 g/dL (29.9-35.2); Mean Corpuscular Hemoglobin 32.2 pg (26.7-34.0); Mean Platelet Volume 10.9 fL (9.5-13.5); Monocytes Absolute Auto 0.5 10^3/uL (0.3-0.8); Monocytes Percent Auto 9.1 % (1.7-12.0); Neutrophils Absolute Auto 2.4 10^3/uL (1.4-6.5); Neutrophils Percent Auto 48.5 % (43.0-75.0); Platelet Count 197 10^3/uL (150-450); Red Blood Count 4.26 10^6/uL (4.20-5.40); Red Cell Distribution Width 13.1 % (11.0-15.0)
[2024-01-15] MEDS: HEPARIN SODIUM (PORCINE) PF LOCK FLUSH 500 UNIT/5 ML SYRINGE IV (10:15)
--- NOTE | 2024-01-15 10:17 | CT_ITS ---
[address] [address] Patient Name: SHU GARDNER MRN: [id number] date: 1965 Sex: F Assigned Patient Location: CT Current Patient Location: CT Accession/Order Number: [id number] Exam Date: 01/15/2024 09:55 Report Date: 01/15/2024 11:08 At the request of: AMITA WASHINGTON Procedure: CT abdomen pelvis w con EXAMINATION: CT chest w con, CT abdomen pelvis w con HISTORY: Malignant Neoplasm Of Colon C18.9 COMPARISON: No relevant comparison available. TECHNIQUE: Axial, Coronal, and Sagittal CT images were obtained without and with IV contrast. Dose reduction techniques were achieved by using automated exposure control and/or adjustment of mA and/or kV according to patient size and/or use of iterative reconstruction technique. FINDINGS: LUNGS: Mild patchy infiltrate identified in the medial basilar segment of the right lower lobe. PLEURA: No mass or effusion. VASCULATURE: No visible pulmonary arterial thrombus or attenuation. LEON: No mass or adenopathy. MEDIASTINUM: No mass or adenopathy. CARDIAC: No enlargement or pericardial effusion Coronary arteries: Absent calcifications CHEST WALL: Accessed left Port-A-Cath LIVER: Stable focal hypodensity in the right hepatic lobe BILIARY: No dilatation or calcification. PANCREAS: No lesion, fluid collection, ductal dilatation, or atrophy. SPLEEN: No enlargement or focal lesion. ADRENALS: No mass or enlargement. KIDNEYS: No mass, obstruction, or calcification. BOWEL/MESENTERY: Partial sigmoid resection with reanastomosis. Nonobstructive bowel gas pattern. AORTA/VASCULAR: No aortic aneurysm. Moderate calcific atherosclerosis RETROPERITONEUM: No mass or adenopathy. ABDOMINAL WALL: Laxity of the ventral abdominal fascia at the level of the umbilicus with eventration BONES: No bony lesion or fracture. OTHER: Negative. CT/CT abdomen pelvis w con IMPRESSION: Mild right basilar infiltrate, consider atelectasis or pneumonia No new evidence of metastatic disease to the chest abdomen and pelvis Electronically authenticated by: SJ KERR Date: 01/15/2024 11:08
--- NOTE | 2024-01-15 10:17 | CT_ITS ---
[address] [address] Patient Name: SHU GARDNER MRN: [id number] date: 1965 Sex: F Assigned Patient Location: CT Current Patient Location: CT Accession/Order Number: [id number] Exam Date: 01/15/2024 09:55 Report Date: 01/15/2024 11:08 At the request of: AMITA WASHINGTON Procedure: CT chest w con EXAMINATION: CT chest w con, CT abdomen pelvis w con HISTORY: Malignant Neoplasm Of Colon C18.9 COMPARISON: No relevant comparison available. TECHNIQUE: Axial, Coronal, and Sagittal CT images were obtained without and with IV contrast. Dose reduction techniques were achieved by using automated exposure control and/or adjustment of mA and/or kV according to patient size and/or use of iterative reconstruction technique. FINDINGS: LUNGS: Mild patchy infiltrate identified in the medial basilar segment of the right lower lobe. PLEURA: No mass or effusion. VASCULATURE: No visible pulmonary arterial thrombus or attenuation. LEON: No mass or adenopathy. MEDIASTINUM: No mass or adenopathy. CARDIAC: No enlargement or pericardial effusion Coronary arteries: Absent calcifications CHEST WALL: Accessed left Port-A-Cath LIVER: Stable focal hypodensity in the right hepatic lobe BILIARY: No dilatation or calcification. PANCREAS: No lesion, fluid collection, ductal dilatation, or atrophy. SPLEEN: No enlargement or focal lesion. ADRENALS: No mass or enlargement. KIDNEYS: No mass, obstruction, or calcification. BOWEL/MESENTERY: Partial sigmoid resection with reanastomosis. Nonobstructive bowel gas pattern. AORTA/VASCULAR: No aortic aneurysm. Moderate calcific atherosclerosis RETROPERITONEUM: No mass or adenopathy. ABDOMINAL WALL: Laxity of the ventral abdominal fascia at the level of the umbilicus with eventration BONES: No bony lesion or fracture. OTHER: Negative. CT/CT chest w con IMPRESSION: Mild right basilar infiltrate, consider atelectasis or pneumonia No new evidence of metastatic disease to the chest abdomen and pelvis Electronically authenticated by: JS KERR Date: 01/15/2024 11:08
[2024-01-15 11:04] LABS: Alanine Aminotransferase 22 U/L (14-59); Albumin Globulin Ratio 1.1; Alkaline Phosphatase 90 U/L (46-116); Aspartate Amino Transferase 21 U/L (15-37); BUN Creatinine Ratio 21.7; Bilirubin Total 0.6 mg/dL (0.2-1.0); Calcium 9.6 mg/dL (8.5-10.1); Carbon Dioxide 26.2 mmol/L (21.0-32.0); Chloride 102 mmol/L (98-107); Estimated GFR (African America >60 (>=60); Estimated GFR (Non-African Ame >60 (>=60); Globulin 3.6 g/dL; Glucose 107 mg/dL (74-106); Potassium 4.2 mmol/L (3.5-5.1); Sodium 136 mmol/L (136-145); Total Protein 7.6 g/dL (6.4-8.2)
[2024-01-16 13:11] LABS: CEA 2.8 ng/mL (0.0-4.7)
== END 2024-01-15 08:36 | disposition home or self-care (01) ==
LOC: CT 08:35
PROVIDERS: PCP Family Medicine; Visit Provider Nurse Practitioner Gerontology
DX: C18.9 Malignant neoplasm of colon, unspecified (principal); R91.8 Other nonspecific abnormal finding of lung field
CPT/HCPCS: 36415; 71260; 74177; 80053; 82378; 85025; J1642; Q9966; Q9967

== ENCOUNTER 2024-03-09 14:56 | Outpatient (RCR) | payer BC, SELFPAY | END 2024-04-27 10:08 | disposition home or self-care (01) | LOC: PT 14:56 | PROVIDERS: PCP Family Medicine; Visit Provider Family Medicine | DX: M54.2 Cervicalgia (principal) | CPT/HCPCS: 20561; 97110; 97112; 97140; 97162 ==

== ENCOUNTER 2024-08-24 11:49 | Outpatient (OUT) | payer BC, SELFPAY ==
--- NOTE | 2024-08-24 | CT_ITS ---
The [address] [address] Patient Name: SHU GARDNER MRN: [id number] date: 1965 Sex: F Assigned Patient Location: CT Current Patient Location: CT Accession/Order Number: [id number] Exam Date: 08/24/2024 14:42 Report Date: 08/24/2024 15:32 At the request of: ISAÍAS GARCIA Procedure: CT chest w con CT CHEST, ABDOMEN AND PELVIS WITH CONTRAST CLINICAL DATA: Restaging of colon cancer COMPARISON: 01/05/2024 Spiral images were obtained through the chest, abdomen and pelvis following oral and 100 mL Isovue 300. Patient also received oral contrast. Images of the chest were reviewed using both narrow and wide window settings. This CT exam was performed using one or more following dose reduction techniques: Automated exposure control, adjustment of the mA and/or kV according to patient size, or use of iterative reconstruction technique. The heart is normal in size. A trace amount of pericardial fluid is present. No aortic aneurysm or dissection is seen. No lymphadenopathy is identified. There is subtle dextroscoliotic curvature and minimal endplate spurring. No consolidation, pleural effusion or pneumothorax is visualized. No pulmonary nodularity is noted. There is fatty infiltration of the liver. A similar 11 mm hypodensity is again seen within the right hepatic lobe, possibly hemangioma.. No new intrahepatic masses are seen. There are no calcified gallstones. The spleen, pancreas and adrenal glands show no acute findings. There are symmetric renal nephrograms, without hydronephrosis. The abdominal aorta is normal caliber and there is atherosclerotic plaque. No enlarged lymph nodes or ascites are seen. There is an umbilical hernia containing fat and a knuckle of nondistended small bowel. The remaining small bowel loops are not dilated. Stool is present throughout the colon. There is subtle levoscoliotic curvature and mild degenerative changes at the spine. Images through the pelvis show normal caliber small bowel loops. The appendix is not identified with certainty. There is a sigmoid anastomosis. Distal colonic stool is visualized. No diverticular disease is seen. The uterus is slightly levoverted. There are no adnexal cysts. No urinary bladder abnormalities are present for the degree of distention. No ascites or lymphadenopathy is noted. CT/CT chest w con IMPRESSION: FATTY LIVER WITH STABLE RIGHT HYPODENSITY. NO RECURRENT OR METASTATIC MALIGNANCY. NO ACUTE FINDINGS. Impression dictated by: Kimberley Perez M.D.08/24/2024 3:32 PM Dictation Location: [place] [address] Electronically authenticated by: [id number] Y Date: 08/24/2024 15:32
--- OUTSIDE RECORDS SUMMARY | 2024-08-24 12:10 | XMS_ITS | CCD ---
Author Organization [facility] Care Team Providers Care In School Suspension Coordinator Name Role Phone DO Isaías Jordan II Attending Provider [phone] DO Clint Jean Baptiste Referring Provider MD Sandro Chin Primary Care Provider DO Isaías Jordan II Attending Provider [phone] NON STAFF Primary Care Provider DO Clint Amos Referring Provider MD Sandro Chin Primary Care Provider DO Clint Jean Baptiste Referring Provider MD Sandro Chin Primary Care Provider DO Clint Jean Baptiste Referring Provider MD Sandro Chin Primary Care Provider RADHA, ISAÍAS J Admitting Unavailable CHIQUISICZ, ISAÍAS J Attending DR SANDRO Thapa Primary Care Unavailable RADHA, ISAÍAS Seals Consulting DR SANDRO Thapa Primary Care Unavailable ADAMOWICZ, ISAÍAS Arnel Admitting Unavailable ADAMOWICZ, ISAÍAS J Attending Unavailable CHIQUISICZ, ISAÍAS J Consulting Unavailable CHIQUISICZ, ISAÍAS J Admitting Unavailable CHIQUISICZ, ISAÍAS J Attending Unavailable DR SANDRO CHIN Primary Care Unavailable RADHA, ISAÍAS Seals Consulting Unavailable ITA ., DR CLINT Ernst Admitting Unavaila ble ITA ., DR CLINT Ernst Attending Unavaila brent CHIN, DR SANDRO Ernst Primary Care Unavailable ITA ., DR CLINT Ernst Consulting Unavaila brent JEAN BAPTISTE ., DR CLINT Ernst Admitting Unavaila ble ITA ., DR CLINT Ernst Attending Unavaila ble CHIN, DR SANDRO Ernst Primary Care Unavailable GRILLIS ., DR CLINT Ernst Consulting Unavaila ble ADAMOWICZ, ISAÍAS J Admitting Unavailable ADAMOWICZ, ISAÍAS J Attending Unavailable CHIN, DR SANDRO Ernst Primary Care Unavailable ADAMOWICZ, ISAÍAS J Consulting Unavailable ADAMOWICZ, ISAÍAS J Admitting Unavailable ADAMOWICZ, ISAÍAS J Attending Unavailable CHIN, DR SANDRO Ernst Primary Care Unavailable ADAMOWICZ, ISAÍAS J Consulting Unavailable ADAMOWICZ, ISAÍAS J Attending Unavailable CHIN, DR SANDRO Ernst Primary Care Unavailable ADAMOWICZ, ISAÍAS J Consulting Unavailable ADAMOWICZ, ISAÍAS J Admitting Unavailable ADAMOWICZ, ISAÍAS J Admitting Unavailable ADAMOWICZ, ISAÍAS J Attending Unavailable CHIN, DR SANDRO Ernst Primary Care Unavailable ADAMOWICZ, ISAÍAS J Consulting Unavailable ADAMOWICZ, ISAÍAS J Admitting Unavailable ADAMOWICZ, ISAÍAS J Attending Unavailable CHIN, DR SANDRO Ernst Primary Care Unavailable ADAMOWICZ, ISAÍAS J Consulting Unavailable ADAMOWICZ, ISAÍAS J Admitting Unavailable ADAMOWICZ, ISAÍAS J Attending Unavailable CHNI, DR SANDRO Ernst Primary Care Unavailable ADAMOWICZ, ISAÍAS J Consulting Unavailable CHIN, DR SANDRO Ernst Admitting Unavailable IRVING GUPTA Attending Unavailable CHIN, DR SANDRO Ernst Primary Care Unavailable ADAMOWICZ, ISAÍAS J Admitting Unavailable ADAMOWICZ, ISAÍAS J Attending Unavailable CHIN, DR SANDRO Ernst Primary Care Unavailable ADAMOWICZ, ISAÍAS J Consulting Unavailable CHIN, DR SANDRO Ernst Admitting Unavailable CHIN, DR SANDRO Ernst Attending Unavailable CHIN, DR SANDRO Ernst Primary Care Unavailable ZIEBIVONNE, DR NEDA Gallo Consulting Unavailable CHIN, DR SANDRO Ernst Consulting Unavailable GRILLIS ., DR CLINT Ernst Admitting Unavaila ble GRILLIIgnacio ., DR CLINT Ernst Attending Unavaila ble CHIN, DR SANDRO Ernst Primary Care Unavailable GRILLIS ., DR CLINT Ernst Consulting Unavaila ble YFN, DR NEDA Gallo Consulting Unavailable ADAMOWICZ, ISAÍAS J Admitting Unavailable ADAMOWICZ, ISAÍAS J Attending Unavailable CHIN, DR SANDRO Ernst Primary Care Unavailable ADAMOWICZ, ISAÍAS J Consulting Unavailable ADAMOWICZ, ISÍAAS J Admitting Unavailable ADAMOWICZ, ISAÍAS J Attending Unavailable CHIN, DR SANDRO Ernst Primary Care Unavailable ADAMOWICZ, ISAÍAS J Consulting Unavailable GRILLIS ., DR CLINT Ernst Admitting Unavaila ble GRILLIIgnacio ., DR CLINT Ernst Attending Unavaila ble CHIN, DR SANDRO Ernst Primary Care Unavailable GRILLIS ., DR CLINT Ernst Consulting Unavaila ble KODI, CANDELARIO Consulting Unavailable GRILLIS ., DR CLINT Ernst Admitting Unavaila ble GRILLIS ., DR CLINT Ernst Attending Unavaila ble GIUSEPPE, DR SANDRO Ernst Primary Care Unavailable GRILLIS ., DR CLINT Ernst Consulting Unavaila ble GRILLIIgnacio ., DR CLINT Ernst Admitting Unavaila ble GRILLIIgnacio ., DR CLINT Ernst Attending Unavaila ble GIUSEPPE, DR SANDRO Ernst Primary Care Unavailable GRILLIS ., DR CLINT Ernst Consulting Unavaila ble ZIEBER, DR NEDA Gallo Consulting Unavailable KODI, CANDELARIO Consulting Unavailable SHARP, BERTHA Consulting Unavailable KUCHIPUDI, JOLENE Consulting Unavailable CHIN, DR SANDRO Ernst Primary Care Unavailable ALONSO, IRVING Babin Admitting Unavailable KATKO, IRVING Babin Attending Unavailable ALONSO, IRVING Babin Consulting Unavailable CHIN, DR SANDRO Ernst Primary Care Unavailable GRILLIS ., DR CLINT Ernst Consulting Unavaila ble HOY ., DR SHAHID Admitting Unavailable HOY ., DR SHAHID Attending Unavailable GRILLIS ., DR CLINT Ernst Procedure Practitioner U navailable HOMary ., DR SHAHID Consulting Unavailable NADERER, MINGO Lucero Consulting Unavailable MUKHERJEE, JOSHUA Consulting Unavailable MORGOS, SUZIE Consulting Unavailable SHARP, BERTHA Consulting Unavailable RAZIA, AUGUSTIN Consulting Unavailable GRILLIS ., DR CLINT Ernst Admitting Unavaila ble GRILLIIgnacio ., DR CLINT Ernst Attending Unavaila brent CHIN, DR SANDRO Ernst Primary Care Unavailable GRILLIIgnacio ., DR CLINT Ernst Consulting Unavaila SIAÍAS Kang Admitting Unavailable ISAÍAS JORDAN Attending Unavailable GIUSEPPE, DR SANDRO Ernst Primary Care Unavailable ISAÍAS JORDAN Consulting Unavailable Sandro Chin Unavailable DO Clint Jean Baptiste Referring Provider [phone] MD Sandro Chin Primary Care Provider [phone] OLIVIA Turner Attending Provider DO Clint Jean Baptiste Referring Provider [phone] MD Sandro Chin Primary Care Provider OLIVIA Turner Attending Provider Sandro Chin Primary Care Unavailable Clint Jean Baptiste Referring Unavailable Carlyn Turner Attending Unavail able Carlyn Turner Admitting Unavail able CLINT JEAN BAPTISTE Attending Unavailable SANDRO CHIN Referring Unavailable SANDRO CHIN Primary Care Unavailable CLINT JEAN BAPTISTE Attending Unavailable SANDRO CHIN Referring Unavailable SANDRO CHIN Primary Care Unavailable DK RICHARDSON Attending Unavailable SANDRO CHIN Referring Unavailable SANDRO CHIN Primary Care Unavailable Sandro Chin MD Primary Care Provider [phone] Allergies Allergy Classification Reported Allergen(s) Allergy Type Date of Onset Reaction(s) Facility (12 sources) HYDROcodone; Translations: [Hydrocodone] Drug Allergy [address] [facility] (1 source) Misc-Food; Translations: [Misc-Food] Food allergy (disorder) [facility] Rep[facility] (2 sources) Codeine; Translations: [CODEINE] Drug Allergy 3 GI Disturbance [facility] Repository Medications Current Medications Medication Drug Class(es) Dates Sig (Normalized) Sig (Original) acetaminophen 500 mg oral tablet (11 sources) Start: 05-03-2022 take 1000 mg by mouth once daily Acetaminophen Active 1000 MG PO Daily May 03, 2022 12:00am brimonidine tartrate 2 mg/ml ophthalmic solution (13 sources) alpha-Adrenergic Agonist Start: 05-02-2022 take 1 drop(s) into the eye(s) twice daily Brimonidine Active 1 DROPS EYE-BOTH Twice daily May 02, 2022 12:00am Start: 01-20-2022 take 0.2 drop(s) int o the eye(s) at bedtime brimonidine (ALPHAGAN) 0.2 % ophthalmic solution Administer 0.2 drops to both eyes in the morning and at bedtime. 01/20/2022 Active take 1 drop(s) into the eye(s) twice daily Brimonidine Tartrate 0.2 % 1 drop twice a day each eye Active celecoxib 200 mg oral capsule (6 sources) Nonsteroidal Anti-inflammatory Drug Start: 02-19-2023 take 1 capsule by mouth once daily Celecoxib (Celebrex) 200 mg Capsule Active 200 MG PO Daily 60 March 24, 2023 12:00am cholecalciferol 0.025 mg oral capsule (11 sources) Vitamin D Start: 05-27-2022 take 25 ug by mouth once daily Cholecalciferol (Vitamin D3) Active 25 MCG PO Daily May 27, 2022 1:00am cholecalciferol, vitamin D3, (VITAMIN D3 ORAL) (1 source) cholecalciferol, vitamin D3, (VITAMIN D3 ORAL) Take 1,000 mg by mouth. Active chondroitin sulfates 400 mg / glucosamine hydrochloride 500 mg oral tablet (1 source) take 1 tablet by mouth three times daily glucosamine-chondro itin 500-400 mg tablet Take 1 tablet by mouth 3 (three) times a day. Active diazePAM 5 mg oral tablet (1 source) Benzodiazepine Start: 03-03-2024 End: 03-03-2024 take 1 tablet by mouth once, then take 1 tablet by mouth every three hours diazePAM (VALIUM) 5 mg tablet Indications: History of colon cancer Take 1 tablet (5 mg total) by mouth once for 1 dose. Take 3 hr prior to procedure 1 tablet 03/03/2024 03/03/2024 Active [place] 0-Llw-Vef-Fish Oil (1 source) Start: 01-19-2024 take 300-1000 mg by mouth once daily [place] 5-Uub-Hzg-Fish Oil (Fish Oil) 300-1,000 mg capsule Active 1 CAP PO Daily January 19, 2024 12:00am dorzolamide 20 mg/ml / timolol 5 mg/ml ophthalmic solution (13 sources) Carbonic Anhydrase Inhibitor, beta-Adrenergic Mitchell Start: 05-02-2022 take 1 drop(s) into the eye(s) twice daily Dorzolamide-Timolol Active 1 DROPS EYE-BOTH Twice daily May 02, 2022 12:00am Start: 02-06-2022 dorzolamide-ti moloL (COSOPT) 22.3-6.8 mg/mL ophthalmic solution Administer 6.8 drops to both eyes in the morning and at bedtime. 02/06/2022 Active take 1 drop(s) into the eye(s) twice daily Cosopt 2-0.5 % 1 drop twice a day each eye Active glucosamine 500 mg oral tablet (1 source) Start: 01-19-2024 take 500 mg by mouth once daily Glucosamine Hcl Active 500 MG PO Daily January 19, 2024 12:00am administer with a meal latanoprost 0.05 mg/ml ophthalmic solution (13 sources) Prostaglandin Analog Start: 05-02-2022 take 1 drop(s) into the eye(s) once daily in the evening Latanoprost Active 1 DROPS EYE-BOTH Every evening May 02, 2022 12:00am Start: 12-22-2021 take 0.005 drop(s) i nto the eye(s) once daily latanoprost (XALATAN) 0.005 % ophthalmic solution Administer 0.005 drops to both eyes nightly. 12/22/2021 Active take 1 drop(s) into the eye(s) once daily Latanoprost 0.005 % 1 drop once a day each eye Active mv-mn/om3/dha/epa/fish/lut/z ea (OCUVITE ADULT 50 PLUS ORAL) (1 source) mv-mn/om3/dha/ep a/fish/lut/katheryn (OCUVITE ADULT 50 PLUS ORAL) Take by mouth daily. Active omega 3-jpv-neb-fish oil (Fi sh OiL) 300-1,000 mg capsule (1 source) omega 3-dha-epa- fish oil (Fish OiL) 300-1,000 mg capsule Take by mouth. Active omeprazole 20 mg delayed rel ease oral capsule (7 sources) Proton Pump Inhibitor Sta rt: omeprazole (PriLOSEC) 20 mg capsule PATIENT REPORTS NEEDED 01/16/2023 Active Start: 08-05-2022 take 20 mg by mouth once daily Omeprazole Magnesium (Prilosec) 10 mg Susp,Delayed Release For Recon Active 20 MG PO Daily 60 August 05, 2022 1:00am sulfamethoxazole 800 mg / trimethoprim 160 mg oral tablet (1 source) Dihydrofolate Reductase Inhibitor Antibacterial, Sulfonamide Antimicrobial Start: 05-19-2023 take 1 tablet by mouth every twelve hours Bactrim DS 800-160 MG 1 tablet Orally Twice a day for 10 day(s) May, Active Vitamin D3 (1 source) Vitamin D3 Active Completed/Discontinued Medications Medication Drug Class(es) Dates Sig (Normalized) Sig (Original) Ascorbic Acid (11 sources) Vitamin C Start: 05-27-2022 End: 11-17-2023 take 1 capsule by mouth once daily Ascorbic Acid (Vitamin C) Discontinued 1 CAP PO Daily May 27, 2022 1:00am November 17, 2023 9:47am Start: 05-27-2022 take 1 capsule by mo [facility] once daily Ascorbic Acid (Vitamin C) Active 1 CAP PO Daily May 27, 2022 1:00am Start: 05-27-2022 take 1 capsule by mo [facility] once daily Ascorbic Acid (Vitamin C) Active 1 CAP PO Daily May 27, 2022 12:00am Carica Papaya (Papaya Enzyme) Tablet (6 sources) Start: 08-19-2022 End: 06-25-2023 take 1 tablet by mouth once daily Carica Papaya (Papaya Enzyme) Tablet Discontinued 1 TAB PO Daily August 19, 2022 1:00am June 25, 2023 12:38pm Start: 08-19-2022 End: 06-25-2023 take 1 tablet by mouth once daily Carica Papaya (Papaya Enzyme) Tablet Discontinued 1 TAB PO Daily August 19, 2022 12:00am June 25, 2023 11:38am Start: 08-19-2022 take 1 tablet by [facility] once daily Carica Papaya (Papaya Enzyme) Tablet Active 1 TAB PO Daily August 19, 2022 12:00am Hvuyz-Kw-8-Utz-Lcv-Wzuedpc-A st (11 sources) Start: 05-02-2022 End: 05-03-2022 take 3 capsules by mouth once daily Rvisp-Hc-1-Xit-Olj-Lrfpmmf-Ast Discontinued 1 CAP PO Daily May 02, 2022 12:00am May 03, 2022 2:39pm Start: 05-02-2022 End: 05-03-2022 take 3 capsules by mouth once daily Itmaa-Id-5-Lgc-Fis-Iarmbwy-Ast Discontin ued 1 CAP PO Daily May 01, 2022 11:00pm May 03, 2022 1:39pm magnesium sulfate 0.0277 meq/ml / potassium sulfate 0.0374 meq/ml / sodium sulfate 0.257 meq/ml oral solution (1 source) Start: 03-19-2023 End: 03-03-2024 take 177 mL by mouth in the morning sodium,potassium,mag sulfates (SUPREP) 17.5-3.13-1.6 gram recon soln Take 177 mL by mouth in the morning and 177 mL before bedtime. 4956 mL 03/19/2023 03/03/2024 Discontinued (Therapy completed) ondansetron 8 mg oral tablet (12 sources) Serotonin-3 Receptor Antagonist Start: 05-03-2022 End: 03-03-2024 take 1 tablet by mouth every eight hours as needed ondansetron (ZOFRAN) 8 mg tablet Take 1 tablet (8 mg total) by mouth every 8 (eight) hours as needed. 05/03/2022 03/03/2024 Discontinued (Therapy completed) prochlorperazine 10 mg oral tablet (6 sources) Phenothiazine Start: 08-05-2022 End: 03-24-2023 take 1 tablet by mouth every six hours Prochlorperazine Maleate (Compazine) 10 mg Tablet Discontinued 10 MG PO Q6H 60 August 05, 2022 1:00am March 24, 2023 10:40am sod sulf-pot chloride-mag sulf 1.479-0.188- 0.225 gram tablet (1 source) Start: 03-19-2023 End: 03-02-2024 sod sulf-pot chloride-mag sulf 1.479-0.188- 0.225 gram tablet Indications: Primary malignant neoplasm of sigmoid colon (CMS-HCC) Please see instructional sheet given by physicians office. 24 tablet 03/19/2023 03/02/2024 Discontinued Vit C-E-Zinc Ng-Bfit-Bkm-Zeax (Icaps Areds2) 250 mg-200 unit -12.5 mg-1 mg Capsule (4 sources) Start: 06-25-2023 End: 11-17-2023 take 2 capsules by mouth once daily Vit C-E-Zinc Db-Rbpi-Dmp-Zeax (Icaps Areds2) 250 mg-200 unit -12.5 mg-1 mg Capsule Discontinued 2 CAP PO Daily June 25, 2023 1:00am November 17, 2023 9:48am Start: 06-25-2023 take 2 capsules by m outh once daily Vit C-E-Zinc Dp-Bxhb-Wyt-Zeax (Icaps Areds2) 250 mg-200 unit -12.5 mg-1 mg Capsule Active 2 CAP PO Daily June 25, 2023 1:00am Start: 06-25-2023 take 2 capsules by m outh once daily Vit C-E-Zinc Ji-Htlf-Owp-Zeax (Icaps Areds2) 250 mg-200 unit -12.5 mg-1 mg Capsule Active 2 CAP PO Daily June 25, 2023 12:00am Vitamin A-Vitamin C-Vit E-Min (Ocuvite) Tablet (11 sources) Start: 05-02-2022 End: 05-27-2022 take 1 tablet by mouth once daily Vitamin A-Vitamin C-Vit E-Min (Ocuvite) Tablet Discontinued 1 TAB PO Daily May 02, 2022 12:00am May 27, 2022 10:27am Start: 05-02-2022 End: 05-27-2022 take 1 tablet by mouth once daily Vitamin A-Vitamin C-Vit E-Min (Ocuvite) Tablet Discontinued 1 TAB PO Daily May 01, 2022 11:00pm May 27, 2022 9:27am Problems Active Problems Problem Classification Problem Date Documented Date Episodic/Chronic Bacterial infection; unspecified site (1 source) Other specified bacterial agents as the cause of diseases classified elsewhere Episodic Cancer of colon (20 sources) Malignant tumor of colon; Translations: [Malignant neoplasm of colon, unspecified] Onset: 04-17-2022 06-03-2022 Chronic Cancer of colon (2 sources) Personal history of other malignant neoplasm of large intestine; Translations: [History of malignant neoplasm of colon] Onset: 03-03-2024 03-03-2024 Episodic Conditions associated with dizziness or vertigo (1 source) Benign paroxysmal vertigo, unspecified ear Episodic Diseases of mouth; excluding dental (4 sources) Hypertrophy of salivary gland; Translations: [Hypertrophy of salivary gland] 11-17-2023 Episodic E Codes: Cut/pierceb (1 source) Contact with contaminated hypodermic needle, initial encounter; Translations: [CNTCT CONTAMINAT HYPODRM NEEDL INIT] Onset: 09-18-2022 Episodic Glaucoma (2 sources) Unspecified glaucoma; Translations: [Bilateral glaucoma] Onset: 04-22-2022 05-15-2022 Chronic Maintenance chemotherapy; radiotherapy (20 sources) Patient encounter status; Translations: [Encounter for antineoplastic chemotherapy] 06-03-2022 Chronic Open wounds of extremities (4 sources) Puncture wound without foreign body of left index finger without damage to nail, initial encounter; Translations: [PW W/O FB LT IF W/O DMG NAIL INIT] Onset: 09-01-2022 Episodic Other nervous system disorders (6 sources) Peripheral neuropathy due to and following chemotherapy; Translations: [Drug-induced polyneuropathy] 07-22-2022 Chronic Other nervous system disorders (5 sources) Drug-induced polyneuropathy; Translations: [Polyneuropathy due to other toxic agents] 08-19-2022 Chronic Other screening for suspected conditions (not mental disorders or infectious disease) (11 sources) Liver function tests abnormal; Translations: [Other specified abnormal findings of blood chemistry] 07-22-2022 Episodic Other upper respiratory infections (1 source) Acute sinusitis, unspecified Episodic Residual codes; unclassified (1 source) Contact with and (suspected) exposure to potentially hazardous body fluids; Translations: [CONTACT AND EXPOS POTENTL HAZ BDY FLUID] Onset: 09-18-2022 Episodic Residual codes; unclassified (1 source) Other specified postprocedural states; Translations: [Other specified postprocedural states] Onset: 03-25-2024 Episodic Secondary malignancies (1 source) Secondary and unspecified malignant neoplasm of lymph node, unspecified; Translations: [SEC AND UNS MAL JARON LYMPH NODE UNS] Onset: 04-22-2022 Chronic Unclassified (1 source) CONTACT W/AND (SUSP) EXPOS COVID-19; Translations: [CONTACT W/AND (SUSP) EXPOS COVID-19] Onset: 05-21-2022 Unclassified (1 source) Post-op Onset: 03-25-2024 Unclassified (1 source) Procedure Onset: 03-15-2024 Unclassified (1 source) PORT REMOVAL Onset: 03-03-2024 Past or Other Problems Problem Classification Problem Date Documented Da te Episodic/Chronic Abdominal pain (9 sources) Generalized abdominal pain; Translations: [Left lower quadrant pain] Onset: 01-09-2022 Episodic Other aftercare (1 source) Other group home (current) drug therapy; Translations: [OTH CO FOUNDER AND CHIEF STRATEGY OFFICER CURRENT DRUG THERAPY] Onset: 04-22-2022 Episodic Other circulatory disease (1 source) Elevated blood-pressure reading, without diagnosis of hypertension; Translations: [ELEVATED BP READING W/O DX HTN] Onset: 04-22-2022 Episodic Other complications of ; puerperium affecting management of mother (1 source) hemorrhage; Translations: [Other immediate hemorrhage] Onset: 05-15-2022 05-15-2022 Episodic Other female genital disorders (1 source) Pelvic congestion syndrome; Translations: [Other specified conditions associated with female genital organs and menstrual cycle] Onset: 02-20-2023 03-19-2023 Episodic Other nutritional; endocrine; and metabolic disorders (1 source) Abnormal weight loss; Translations: [ABNORMAL WEIGHT LOSS] Onset: 03-21-2022 Episodic Screening and history of mental health and substance abuse codes (1 source) Personal history of nicotine dependence; Translations: [PERSONAL HISTORY OF NICOTINE DEPEND] Onset: 03-21-2022 Episodic Results Test Name Value Interpretation Reference Range Facility Basophils Auto (Bld) [#/Vol] on 01-15-2024 Basophils (Bld) [#/Vol] 0.1 10 3/uL 0.0-0.1 [facility] Basophils/100 WBC Auto (Bld) on 01-15-2024 Basophils/100 WBC (Bld) 1.0 % 0.2-2.0 [facility] Eosinophils/100 WBC Auto (Bl d)on 01-15-2024 Eosinophils/100 WBC (Bld) 1.8 % 0.9-7.0 [facility] Erythrocyte distribution wid th Auto (RBC) [Ratio]on 01-15-2024 Erythrocyte distribution width (RBC) [Ratio] 13.1 % 11.0-15.0 [facility] Estimated glomerular filtrat ion rate (GFR) non- Americanon 01-15-2024 GFR/1.73 sq M.predicted among non-blacks MDRD (S/P/Bld) [Vol rate/Area] mL/min/{1.73_m2} >=60 [facility] Globulin Calc (S) [Mass/Vol] on 01-15-2024 Globulin (S) [Mass/Vol] 3.6 g/dL [facility] Hematocrit Auto (Bld) [Volum e fraction]on 01-15-2024 Hematocrit (Bld) [Volume fraction] 42.6 % 36.0-48.0 [facility] Hemoglobin [Mass/volume] in Bloodon 01-15-2024 Hemoglobin (Bld) [Mass/Vol] 13.7 g/dL 12.0-16.0 [facility] Laboratory - Chemistry and C hemistry - challengeon 01-15-2024 Albumin [Mass/Vol] 4.0 g/dL 3.4-5.0 [facility] ALP [Catalytic activity/Vol] 90 U/L 46-116 [facility] ALT [Catalytic activity/Vol] 22 U/L 14-59 [facility] AST [Catalytic activity/Vol] 21 U/L 15-37 [facility] Bilirubin [Mass/Vol] 0.6 mg/dL 0.2-1.0 [facility] Calcium [Mass/Vol] 9.6 mg/dL 8.5-10.1 [facility] Chloride [Moles/Vol] 102 mmol/L 98-107 [facility] CO2 [Moles/Vol] 26.2 mmol/L 21.0-32.0 [facility] Creatinine [Mass/Vol] 0.60 mg/dL 0.55-1.02 [facility] GFR/1.73 sq M.predicted MDRD (S/P/Bld) [Vol rate/Area] mL/min/{1.73_m2} >=60 [facility] Glucose [Mass/Vol] 107 mg/dL High 74-106 [facility] Potassium [Moles/Vol] 4.2 mmol/L 3.5-5.1 [facility] Protein [Mass/Vol] 7.6 g/dL 6.4-8.2 [facility] Sodium [Moles/Vol] 136 mmol/L 136-145 [facility] Urea nitrogen [Mass/Vol] 13.0 mg/dL 7.0-18.0 [facility] Urea nitrogen/Creatinine [Mass ratio] 21.7 mg/mg [facility] Laboratory - Hematology and Cell countson 01-15-2024 Immature granulocytes/100 WBC (Bld) 0.2 % 0.0-0.5 [facility] Leukocytes [#/volume] correc audrey for nucleated erythrocytes in Blood by Automated counon 01-15-2024 WBC corrected for nucl RBC Auto (Bld) [#/Vol] 5.0 10 3/uL 4.0-11.0 [facility] Lymphocytes Auto (Bld) [#/Vo l]on 01-15-2024 Lymphocytes (Bld) [#/Vol] 2.0 10 3/uL 1.2-3.8 [facility] Lymphocytes/100 WBC Auto (Bl d)on 01-15-2024 Lymphocytes/100 WBC (Bld) 39.4 % 20.5-60.0 [facility] MCH Auto (RBC) [Entitic mass ]on 01-15-2024 MCH (RBC) [Entitic mass] 32.2 pg 26.7-34.0 [facility] MCHC Auto (RBC) [Mass/Vol]on 01-15-2024 MCHC (RBC) [Mass/Vol] 32.2 g/dL 29.9-35.2 [facility] MCV Auto (RBC) [Entitic vol] on 01-15-2024 MCV (RBC) [Entitic vol] 100.0 fL High 81.0-99.0 [facility] Monocytes Auto (Bld) [#/Vol] on 01-15-2024 Monocytes (Bld) [#/Vol] 0.5 10 3/uL 0.3-0.8 [facility] Monocytes/100 WBC Auto (Bld) on 01-15-2024 Monocytes/100 WBC (Bld) 9.1 % 1.7-12.0 [facility] Neutrophils Auto (Bld) [#/Vo l]on 01-15-2024 Neutrophils (Bld) [#/Vol] 2.4 10 3/uL 1.4-6.5 [facility] Neutrophils/100 WBC Auto (Bl d)on 01-15-2024 Neutrophils/100 WBC (Bld) 48.5 % 43.0-75.0 [facility] No Panel Informationon 01-14 Eosinophils # (Auto) 0.1 10 3/uL 0.0-0.7 [facility] Immature Granulocyte # (Auto) 0.01 10 3/uL 0.00-0.03 [facility] Platelet mean volume Auto (B ld) [Entitic vol]on 01-15-2024 Platelet mean volume (Bld) [Entitic vol] 10.9 fL 9.5-13.5 [facility] Platelets Auto (Bld) [#/Vol] on 01-15-2024 Platelets (Bld) [#/Vol] 197 10 3/uL 150-450 [facility] RBC Auto (Bld) [#/Vol]on RBC (Bld) [#/Vol] 4.26 10 6/uL 4.20-5.40 [facility] Serum or plasma albumin/glob ulin mass ratioon 01-15-2024 Albumin/Globulin [Mass ratio] 1.1 {ratio} [facility] Serum or plasma anion gap de terminationon 01-15-2024 Anion gap [Moles/Vol] 12.0 mmol/L [facility] Basophils Auto (Bld) [#/Vol] on 11-26-2023 Basophils (Bld) [#/Vol] 0.0 10 3/uL 0.0-0.1 [facility] Basophils/100 WBC Auto (Bld) on 11-26-2023 Basophils/100 WBC (Bld) 0.9 % 0.2-2.0 [facility] Cholesterol in LDL Calc [Mas s/Vol]on 11-26-2023 Cholesterol in LDL [Mass/Vol] 179.0 mg/dL [facility] Comment on above: <100 mg/dl [id number] 0-129 mg/dl NEAR OR ABOVE [id number] mg/dl BORDERLINE [id number] mg/dl HIGH>190 mg/dl VERY HIGH Cholesterol in VLDL Calc [Ma ss/Vol]on 11-26-2023 Cholesterol in VLDL [Mass/Vol] 28.0 mg/dL [facility] Eosinophils/100 WBC Auto (Bl d)on 11-26-2023 Eosinophils/100 WBC (Bld) 2.4 % 0.9-7.0 [facility] Erythrocyte distribution wid th Auto (RBC) [Ratio]on 11-26-2023 Erythrocyte distribution width (RBC) [Ratio] 13.2 % 11.0-15.0 [facility] Estimated glomerular filtrat ion rate (GFR) non- Americanon 11-26-2023 GFR/1.73 sq M.predicted among non-blacks MDRD (S/P/Bld) [Vol rate/Area] mL/min/{1.73_m2} >=60 [facility] Globulin Calc (S) [Mass/Vol] on 11-26-2023 Globulin (S) [Mass/Vol] 3.5 g/dL [facility] Glucose mean value [Mass/vol ume] in Blood Estimated from glycated hemoglobinon 11-26-2023 Average glucose Estimated from glycated hemoglobin (Bld) [Mass/Vol] 94 mg/dL [facility] Hematocrit Auto (Bld) [Volum e fraction]on 11-26-2023 Hematocrit (Bld) [Volume fraction] 41.5 % 36.0-48.0 [facility] Hemoglobin [Mass/volume] in Bloodon 11-26-2023 Hemoglobin (Bld) [Mass/Vol] 13.4 g/dL 12.0-16.0 [facility] Laboratory - Chemistry and C hemistry - challengeon 11-26-2023 Albumin [Mass/Vol] 3.9 g/dL 3.4-5.0 [facility] ALP [Catalytic activity/Vol] 101 U/L 46-116 [facility] ALT [Catalytic activity/Vol] 29 U/L 14-59 [facility] AST [Catalytic activity/Vol] 19 U/L 15-37 [facility] Bilirubin [Mass/Vol] 0.5 mg/dL 0.2-1.0 [facility] Calcium [Mass/Vol] 9.5 mg/dL 8.5-10.1 [facility] Chloride [Moles/Vol] 105 mmol/L 98-107 [facility] Cholesterol [Mass/Vol] 250 mg/dL High <=200 [facility] Cholesterol in HDL [Mass/Vol] 43 mg/dL 40-60 [facility] Comment on above: > or =60 mg/dl - LOW CARDIOVASCULAR RISK<40 mg/dl - HIGH CARDIOVASCULAR RISK CO2 [Moles/Vol] 28.5 mmol/L 21.0-32.0 [facility] Creatinine [Mass/Vol] 0.57 mg/dL 0.55-1.02 [facility] GFR/1.73 sq M.predicted MDRD (S/P/Bld) [Vol rate/Area] mL/min/{1.73_m2} >=60 [facility] Glucose [Mass/Vol] 100 mg/dL 74-106 [facility] Potassium [Moles/Vol] 4.0 mmol/L 3.5-5.1 [facility] Protein [Mass/Vol] 7.4 g/dL 6.4-8.2 [facility] Sodium [Moles/Vol] 142 mmol/L 136-145 [facility] Triglyceride [Mass/Vol] 140 mg/dL <=150 [facility] TSH Qn 1.818 m[IU]/L 0.358-3.740 [facility] Urea nitrogen [Mass/Vol] 16.0 mg/dL 7.0-18.0 [facility] Urea nitrogen/Creatinine [Mass ratio] 28.1 mg/mg [facility] Laboratory - Hematology and Cell countson 11-26-2023 HbA1c (Bld) [Mass fraction] 4.9 % 4.5-6.2 [facility] Comment on above: ADA RECOMMENDED LIMI T 4.0 - 6.0ADA THERAPEUTIC TARGET < 7.0ACTION SUGGESTED> 7.0 Immature granulocytes/100 WBC (Bld) 0.2 % 0.0-0.5 [facility] Leukocytes [#/volume] correc audrey for nucleated erythrocytes in Blood by Automated counon 11-26-2023 WBC corrected for nucl RBC Auto (Bld) [#/Vol] 4.6 10 3/uL 4.0-11.0 [facility] Lymphocytes Auto (Bld) [#/Vo l]on 11-26-2023 Lymphocytes (Bld) [#/Vol] 2.1 10 3/uL 1.2-3.8 [facility] Lymphocytes/100 WBC Auto (Bl d)on 11-26-2023 Lymphocytes/100 WBC (Bld) 44.7 % 20.5-60.0 [facility] MCH Auto (RBC) [Entitic mass ]on 11-26-2023 MCH (RBC) [Entitic mass] 31.5 pg 26.7-34.0 [facility] MCHC Auto (RBC) [Mass/Vol]on 11-26-2023 MCHC (RBC) [Mass/Vol] 32.3 g/dL 29.9-35.2 [facility] MCV Auto (RBC) [Entitic vol] on 11-26-2023 MCV (RBC) [Entitic vol] 97.4 fL 81.0-99.0 [facility] Monocytes Auto (Bld) [#/Vol] on 11-26-2023 Monocytes (Bld) [#/Vol] 0.4 10 3/uL 0.3-0.8 [facility] Monocytes/100 WBC Auto (Bld) on 11-26-2023 Monocytes/100 WBC (Bld) 8.5 % 1.7-12.0 [facility] Neutrophils Auto (Bld) [#/Vo l]on 11-26-2023 Neutrophils (Bld) [#/Vol] 2.0 10 3/uL 1.4-6.5 [facility] Neutrophils/100 WBC Auto (Bl d)on 11-26-2023 Neutrophils/100 WBC (Bld) 43.3 % 43.0-75.0 [facility] No Panel Informationon 11-25 Eosinophils # (Auto) 0.1 10 3/uL 0.0-0.7 [facility] Immature Granulocyte # (Auto) 0.01 10 3/uL 0.00-0.03 [facility] Platelet mean volume Auto (B ld) [Entitic vol]on 11-26-2023 Platelet mean volume (Bld) [Entitic vol] 11.4 fL 9.5-13.5 [facility] Platelets Auto (Bld) [#/Vol] on 11-26-2023 Platelets (Bld) [#/Vol] 210 10 3/uL 150-450 [facility] RBC Auto (Bld) [#/Vol]on RBC (Bld) [#/Vol] 4.26 10 6/uL 4.20-5.40 [facility] Serum or plasma albumin/glob ulin mass ratioon 11-26-2023 Albumin/Globulin [Mass ratio] 1.1 {ratio} [facility] Serum or plasma anion gap de terminationon 11-26-2023 Anion gap [Moles/Vol] 12.5 mmol/L [facility] Serum or plasma total choles terol/high density lipoprotein (HDL) cholesterol mass johan 11-26-2023 Cholesterol.total/Chol esterol in HDL [Mass ratio] 5.8 {ratio} [facility] Comment on above: 3.3 - 4.4 LOW RISK4. 4 - 7.1 AVERAGE RISK7.1 - 11.0 MODERATE RISK>11.0 HIGH RISK Basophils Auto (Bld) [#/Vol] on 09-18-2023 Basophils (Bld) [#/Vol] 0.1 10 3/uL 0.0-0.1 [facility] Basophils/100 WBC Auto (Bld) on 09-18-2023 Basophils/100 WBC (Bld) 1.1 % 0.2-2.0 [facility] Eosinophils/100 WBC Auto (Bl d)on 09-18-2023 Eosinophils/100 WBC (Bld) 2.2 % 0.9-7.0 [facility] Erythrocyte distribution wid th Auto (RBC) [Ratio]on 09-18-2023 Erythrocyte distribution width (RBC) [Ratio] 12.2 % 11.0-15.0 [facility] Estimated glomerular filtrat ion rate (GFR) non- Americanon 09-18-2023 GFR/1.73 sq M.predicted among non-blacks MDRD (S/P/Bld) [Vol rate/Area] mL/min/{1.73_m2} >=60 [facility] Globulin Calc (S) [Mass/Vol] on 09-18-2023 Globulin (S) [Mass/Vol] 3.3 g/dL [facility] Hematocrit Auto (Bld) [Volum e fraction]on 09-18-2023 Hematocrit (Bld) [Volume fraction] 42.5 % 36.0-48.0 [facility] Hemoglobin [Mass/volume] in Bloodon 09-18-2023 Hemoglobin (Bld) [Mass/Vol] 13.5 g/dL 12.0-16.0 [facility] Laboratory - Chemistry and C hemistry - challengeon 09-18-2023 Albumin [Mass/Vol] 3.8 g/dL 3.4-5.0 [facility] ALP [Catalytic activity/Vol] 89 U/L 46-116 [facility] ALT [Catalytic activity/Vol] 26 U/L 14-59 [facility] AST [Catalytic activity/Vol] 19 U/L 15-37 [facility] Bilirubin [Mass/Vol] 0.4 mg/dL 0.2-1.0 [facility] Calcium [Mass/Vol] 8.9 mg/dL 8.5-10.1 [facility] Chloride [Moles/Vol] 105 mmol/L 98-107 [facility] CO2 [Moles/Vol] 29.0 mmol/L 21.0-32.0 [facility] Creatinine [Mass/Vol] 0.71 mg/dL 0.55-1.02 [facility] GFR/1.73 sq M.predicted MDRD (S/P/Bld) [Vol rate/Area] mL/min/{1.73_m2} >=60 [facility] Glucose [Mass/Vol] 84 mg/dL 74-106 [facility] Potassium [Moles/Vol] 4.2 mmol/L 3.5-5.1 [facility] Protein [Mass/Vol] 7.1 g/dL 6.4-8.2 [facility] Sodium [Moles/Vol] 142 mmol/L 136-145 [facility] Urea nitrogen [Mass/Vol] 13.0 mg/dL 7.0-18.0 [facility] Urea nitrogen/Creatinine [Mass ratio] 18.3 mg/mg [facility] Laboratory - Hematology and Cell countson 09-18-2023 Immature granulocytes/100 WBC (Bld) 0.2 % 0.0-0.5 [facility] Leukocytes [#/volume] correc audrey for nucleated erythrocytes in Blood by Automated counon 09-18-2023 WBC corrected for nucl RBC Auto (Bld) [#/Vol] 4.6 10 3/uL 4.0-11.0 [facility] Lymphocytes Auto (Bld) [#/Vo l]on 09-18-2023 Lymphocytes (Bld) [#/Vol] 2.6 10 3/uL 1.2-3.8 [facility] Lymphocytes/100 WBC Auto (Bl d)on 09-18-2023 Lymphocytes/100 WBC (Bld) 56.8 % 20.5-60.0 [facility] MCH Auto (RBC) [Entitic mass ]on 09-18-2023 MCH (RBC) [Entitic mass] 31.5 pg 26.7-34.0 [facility] MCHC Auto (RBC) [Mass/Vol]on 09-18-2023 MCHC (RBC) [Mass/Vol] 31.8 g/dL 29.9-35.2 [facility] MCV Auto (RBC) [Entitic vol] on 09-18-2023 MCV (RBC) [Entitic vol] 99.1 fL 81.0-99.0 [facility] Monocytes Auto (Bld) [#/Vol] on 09-18-2023 Monocytes (Bld) [#/Vol] 0.4 10 3/uL 0.3-0.8 [facility] Monocytes/100 WBC Auto (Bld) on 09-18-2023 Monocytes/100 WBC (Bld) 8.2 % 1.7-12.0 [facility] Neutrophils Auto (Bld) [#/Vo l]on 09-18-2023 Neutrophils (Bld) [#/Vol] 1.5 10 3/uL 1.4-6.5 [facility] Neutrophils/100 WBC Auto (Bl d)on 09-18-2023 Neutrophils/100 WBC (Bld) 31.5 % 43.0-75.0 [facility] No Panel Informationon 09-17 Eosinophils # (Auto) 0.1 10 3/uL 0.0-0.7 [facility] Immature Granulocyte # (Auto) 0.01 10 3/uL 0.00-0.03 [facility] Platelet mean volume Auto (B ld) [Entitic vol]on 09-18-2023 Platelet mean volume (Bld) [Entitic vol] 11.1 fL 9.5-13.5 [facility] Platelets Auto (Bld) [#/Vol] on 09-18-2023 Platelets (Bld) [#/Vol] 196 10 3/uL 150-450 [facility] RBC Auto (Bld) [#/Vol]on RBC (Bld) [#/Vol] 4.29 10 6/uL 4.20-5.40 [facility] Serum or plasma albumin/glob ulin mass ratioon 09-18-2023 Albumin/Globulin [Mass ratio] 1.2 {ratio} [facility] Serum or plasma anion gap de terminationon 09-18-2023 Anion gap [Moles/Vol] 12.2 mmol/L [facility] Alanine aminotransferase [En zymatic activity/volume] in Serum or PlasmaOrdered By: Isaías Jordan on 03-20-2023 ALT [Catalytic activity/Vol] 16 U/L Normal 7-52 [facility] Comment on above: Performed By: #### C JOSH CMP, CEA #### [facility] [address] Albumin [Mass/volume] in Ser um or Plasma by Bromocresol green (BCG) dye binding methoOrdered By: Isaías Jordan on 03-20-2023 Albumin BCG dye [Mass/Vol] 4.4 g/dL 3.5-5.7 [facility] Alkaline phosphatase [Enzyma tic activity/volume] in Serum or PlasmaOrdered By: Isaías Jordan on 03-20-2023 ALP [Catalytic activity/Vol] 88 U/L Normal 34-104 [facility] Comment on above: Performed By: #### C BC CMP, CEA #### [facility] [address] Aspartate aminotransferase [ Enzymatic activity/volume] in Serum or PlasmaOrdered By: Isaías Jordan on 03-20-2023 AST [Catalytic activity/Vol] 21 U/L Normal 13-39 [facility] Comment on above: Performed By: #### C BC CMP, CEA #### [facility] [address] [place] [address] [place] Automated basophil %Ordered By: Isaías Jordan on 03-20-2023 Basophils/100 WBC (Bld) 1.2 % Normal . [facility] Comment on above: Performed By: #### C BC, CMP, CEA #### [address] Automated basophil countOrde red By: Isaías Jordan on 03-20-2023 Basophils (Bld) [#/Vol] 0.1 10*3/uL Normal 0.0-0.2 [facility] Comment on above: Result Comment: PERF ORMED BY: [place] [address] PATHOLOGIST SURVEY RODMAN DIAMANTE DENNY M.D. Performed By: #### C BC, CMP, CEA #### [address] Automated blood monocyte cou ntOrdered By: Isaías Jordan on 03-20-2023 Monocytes (Bld) [#/Vol] 0.5 10*3/uL Normal 0.0-0.8 [facility] Comment on above: Performed By: #### C BC, CMP, CEA #### [address] Automated eosinophil %Ordere d By: Isaías Jordan on 03-20-2023 Eosinophils/100 WBC (Bld) 2.8 % Normal . [facility] Comment on above: Performed By: #### C BC, CMP, CEA #### [address] Automated eosinophil countOr dered By: Isaías Jordan on 03-20-2023 Eosinophils (Bld) [#/Vol] 0.1 10*3/uL Normal 0.0-0.45 [facility] Comment on above: Performed By: #### C BC, CMP, CEA #### [address] Automated monocyte %Ordered By: Isaías Jordan on 03-20-2023 Monocytes/100 WBC (Bld) 9.0 % Normal . [facility] Comment on above: Performed By: #### C BC, CMP, CEA #### [facility] [address] Automated neutrophil %Ordere d By: Isaías Jordan on 03-20-2023 Neutrophils/100 WBC (Bld) 47.6 % Normal . [facility] Comment on above: Performed By: #### C BC, CMP, CEA #### [facility] [address] Bilirubin.total [Mass/volume ] in Serum or PlasmaOrdered By: Isaías Jordan on 03-20-2023 Bilirubin [Mass/Vol] 0.8 mg/dL Normal 0.3-1.0 [facility] Comment on above: Performed By: #### C BC, CMP, CEA #### [address] Calcium [Mass/volume] in Ser um or PlasmaOrdered By: Isaías Jordan on 03-20-2023 Calcium [Mass/Vol] 10.3 mg/dL Normal 8.6-10.3 [facility] Comment on above: Performed By: #### C BC, CMP, CEA #### [address] Carbon dioxide, total [Moles /volume] in Serum or PlasmaOrdered By: Isaías Jordan on 03-20-2023 CO2 [Moles/Vol] 27.3 mmol/L Normal 21.0-31.0 [facility] Comment on above: Performed By: #### C BC, CMP, CEA #### [facility] [address] [place] [address] [place] Chloride [Moles/volume] in S daljit or PlasmaOrdered By: Isaías Jordan on 03-20-2023 Chloride [Moles/Vol] 105 mmol/L Normal 98-107 [facility] Comment on above: Performed By: #### C BC, CMP, CEA #### [address] Complete Blood Count Auto Di ffon 03-20-2023 Mean Corpuscular HGB Conc 33.7 g/dL Normal 32.0-35.0 [facility] Comment on above: Performed By: #### C BC, CMP, CEA #### [address] NRBC% 0.1 /100{WBC} Normal 0-0.5 [facility] Comment on above: Performed By: #### C BC, CMP, CEA #### [address] Comprehensive Metabolic Pane maegan 03-20-2023 Albumin [Mass/Vol] 4.4 g/dL Normal 3.5-5.7 [facility] Comment on above: Performed By: #### C BC, CMP, CEA #### [address] Creatinine Clr Calc Pharmacy 86.44 Normal [facility] Comment on above: Result Comment: PERF ORMED BY: [place] [address] PATHOLOGIST SURVEY RODMAN DIAMANTE DENNY M.D. Performed By: #### C BC, CMP, CEA #### [address] GFR/1.73 sq M.predicted MDRD (S/P/Bld) [Vol rate/Area] mL/min/{1.73_m2} Normal [facility] Comment on above: Performed By: #### C BC, CMP, CEA #### [address] Creatinine [Mass/volume] in Serum or PlasmaOrdered By: Isaías Jordan on 03-20-2023 Creatinine [Mass/Vol] 0.73 mg/dL Normal 0.60-1.20 [facility] Comment on above: Performed By: #### C BC, CMP, CEA #### [address] Erythrocyte distribution wid th [Ratio] by Automated countOrdered By: Isaías Jordan on 03-20-2023 Erythrocyte distribution width (RBC) [Ratio] 13.7 % Normal 11.9-15.3 [facility] Comment on above: Performed By: #### C JEROD MORENO, CEA #### [facility] [address] Erythrocytes [#/volume] in B lood by Automated countOrdered By: Isaías Jordan on 03-20-2023 RBC (Bld) [#/Vol] 4.26 10*6/uL Normal 3.60-5.00 [facility] Comment on above: Performed By: #### C JEROD MORENO, CEA #### [facility] [address] Glucose [Mass/volume] in Ser um or PlasmaOrdered By: Isaías Jordan on 03-20-2023 Glucose [Mass/Vol] 80 mg/dL Normal 70-100 [facility] Comment on above: ADA recommended refe rence rangeRandom Glucose Reference Range is dependent on time and content of last meal. Glucose of more than 200 mg/dL in a nonstressed, ambulatory subject supports the diagnosis of Diabetes Mellitus. Result Comment: [place] Glucose Reference Range is dependent on time and content of last meal. Glucose of more than 200 mg/dL in a nonstressed, ambulatory subject supports the diagnosis of Diabetes Mellitus. ADA recommended reference range Performed By: #### C JEROD MORENO CEA #### [facility] [address] Hematocrit [Volume Fraction] of Blood by Automated countOrdered By: Isaías Jordan on 03-20-2023 Hematocrit (Bld) [Volume fraction] 40.8 % Normal 34.0-46.4 [facility] Comment on above: Performed By: #### C JEROD MORENO, CEA #### [facility] [address] Hemoglobin [Mass/volume] in BloodOrdered By: Isaías Jordan on 03-20-2023 Hemoglobin (Bld) [Mass/Vol] 13.8 g/dL Normal 11.8-15.4 [facility] Comment on above: Performed By: #### C JEROD MORENO, CEA #### [facility] [address] [place] [address] [place] Leukocytes [#/volume] correc audrey for nucleated erythrocytes in Blood by Automated counOrdered By: Isaías Jordan on 03-20-2023 WBC corrected for nucl RBC Auto (Bld) [#/Vol] 5.1 10*3/uL 3.8-11.6 [facility] Leukocytes [#/volume] in Blo od by Automated countOrdered By: Isaías Jordan on 03-20-2023 WBC (Bld) [#/Vol] 5.1 10*3/uL Normal 3.8-11.6 [facility] Comment on above: Performed By: #### C BC, CMP, CEA #### [facility] [address] [place] [address] [place] Lymphocytes [#/volume] in Bl ood by Automated countOrdered By: Isaías Jordan on 03-20-2023 Lymphocytes (Bld) [#/Vol] 2.0 10*3/uL Normal 1.00-4.8 [facility] Comment on above: Performed By: #### C BC, CMP, CEA #### [facility] [address] [place] [address] [place] Lymphocytes/100 leukocytes i n Blood by Automated countOrdered By: Isaías Jordan on 03-20-2023 Lymphocytes/100 WBC (Bld) 39.4 % Normal . [facility] Comment on above: Performed By: #### C BC, CMP, CEA #### [address] MCH [Entitic mass] by Automa audrey countOrdered By: Isaías Jordan on 03-20-2023 MCH (RBC) [Entitic mass] 32.3 pg Normal 24.7-34.3 [facility] Comment on above: Performed By: #### C BC, CMP, CEA #### [address] MCHC Auto (RBC) [Mass/Vol]Or dered By: Isaías Jordan on 03-20-2023 MCHC (RBC) [Mass/Vol] 33.7 g/dL 32.0-35.0 [facility] MCV [Entitic volume] by Auto mated countOrdered By: Isaías Jordan on 03-20-2023 MCV (RBC) [Entitic vol] 95.7 fL Normal 80-100 [facility] Comment on above: Performed By: #### C JEROD MORENO, CEA #### [address] Neutrophils [#/volume] in Bl ood by Automated countOrdered By: Isaías Jordan on 03-20-2023 Neutrophils (Bld) [#/Vol] 2.4 10*3/uL Normal 1.8-7.7 [facility] Comment on above: Performed By: #### C JEROD MORENO, CEA #### [address] No Panel InformationOrdered By: Isaías Jordan on 03-20-2023 Estimated GFR (CKD-EPI) > 60.0 mL/Min [facility] Creatinine Clearance (Chem 86.44 [facility] Nucleated erythrocytes [Pres ence] in Blood by Automated countOrdered By: Isaías Jordan on 03-20-2023 Nucleated RBC Auto Ql (Bld) 0.1 /100{WBC} 0-0.5 [facility] Platelet mean volume [Entiti c volume] in Blood by Automated countOrdered By: Isaías Jordan on 03-20-2023 Platelet mean volume (Bld) [Entitic vol] 8.9 fL Normal 6.3-10.7 [facility] Comment on above: Performed By: #### C JEROD MORENO, CEA #### [facility] [address] [place] [address] Platelets [#/volume] in Bloo d by Automated countOrdered By: Isaías Jordan on 03-20-2023 Platelets (Bld) [#/Vol] 198 10*3/uL Normal 150-450 [facility] Comment on above: Performed By: #### C JOSH CMP, CEA #### [address] Potassium [Moles/volume] in Serum or PlasmaOrdered By: Isaías Jordan on 03-20-2023 Potassium [Moles/Vol] 4.3 mmol/L Normal 3.5-5.1 [facility] Comment on above: Performed By: #### C BC, CMP, CEA #### [address] Protein [Mass/volume] in Ser um or PlasmaOrdered By: Isaías Jordan on 03-20-2023 Protein [Mass/Vol] 7.3 g/dL Normal 6.4-8.9 [facility] Comment on above: Performed By: #### C BC, CMP, CEA #### [address] Serum globulin measurement b y calculation (mass/volume)Ordered By: Isaías Jordan on 03-20-2023 Globulin (S) [Mass/Vol] 2.9 g/dL [facility] Comment on above: Performed By: #### C BC, CMP, CEA #### [address] Serum or plasma albumin/glob ulin mass ratioOrdered By: Isaías Jordan on 03-20-2023 Albumin/Globulin [Mass ratio] 1.5 {ratio} [facility] Comment on above: Performed By: #### C BC, CMP, CEA #### [address] Serum or plasma anion gap de terminationOrdered By: Isaías Jordan on 03-20-2023 Anion gap [Moles/Vol] 11.0 mmol/L Normal 6.0-15.0 [facility] Comment on above: Performed By: #### C BC, CMP, CEA #### [address] Serum or plasma carcinoembry onic antigen measurement (mass/volume)Ordered By: Isaías Jordan on 03-20-2023 Carcinoembryonic Ag [Mass/Vol] 3.3 ng/mL High 0.0-3.0 [facility] Sodium [Moles/volume] in Ser um or PlasmaOrdered By: Isaías Jordan on 09-14-2023 Sodium [Moles/Vol] 139 mmol/L Normal 136-145 [facility] Comment on above: Performed By: #### C BC, CMP, CEA #### [facility] [address] [place] [address] [place] Urea nitrogen [Mass/volume] in Serum or PlasmaOrdered By: Isaías Jordan on 03-20-2023 Urea nitrogen [Mass/Vol] 16 mg/dL Normal 7-25 [facility] Comment on above: Performed By: #### C BC, CMP, CEA #### [facility] [address] CBC AUTO DIFFon 11-16-2022 BASO # 0.0 103/ul Normal 0.0-0.1 [facility] Comment on above: Performed By: #### C BC #### [facility] [address] [address] [address] Doreen Betancourt Basophils/100 WBC (Bld) 0.6 % Normal 0.2-2.0 [facility] Comment on above: Performed By: #### C BC #### [facility] [address] [address] [address] Doreen Betancourt EO # 0.0 103/ul Normal 0.0-0.7 [facility] Comment on above: Performed By: #### C BC #### [facility] [address] [address] [address] Doreen Betancourt Eosinophils/100 WBC (Bld) 0.6 % Critically low 0.9-7.0 [facility] Comment on above: Performed By: #### C BC #### [facility] [address] [address] [address] Doreen Betancourt Erythrocyte distribution width (RBC) [Ratio] 13.7 % Normal 11.0-15.0 [facility] Comment on above: Performed By: #### C BC #### [facility] [address] [address] [address] Doreen Betancourt Hematocrit (Bld) [Volume fraction] 41.0 % Normal 36.0-48.0 [facility] Comment on above: Performed By: #### C BC #### [facility] [address] [place] [address] Dr. Doreen Betancourt Hemoglobin (Bld) [Mass/Vol] 13.1 g/dL Normal 12.0-16.0 [facility] Comment on above: Performed By: #### C BC #### [facility] [address] [place] [address] Dr. Doreen Betancourt IG # 0.00 10e3/ul Normal 0.00-0.03 [facility] Comment on above: Performed By: #### C BC #### [facility] [address] [place] [address] Dr. Doreen Betancourt IG % 0.0 % Normal 0.0-0.5 [facility] Comment on above: Performed By: #### C BC #### [facility] [address] [place] [address] Dr. Doreen Betancourt LYMPH # 2.0 103/ul Normal 1.2-3.8 [facility] Comment on above: Performed By: #### C BC #### [facility] [address] [place] [address] Dr. Doreen Betancourt Lymphocytes/100 WBC (Bld) 55.3 % Normal 20.5-60.0 [facility] Comment on above: Performed By: #### C BC #### [facility] [address] [place] [address] Dr. Doreen Betancourt MANUAL DIFF REQ NO Normal [facility] Comment on above: Performed By: #### C BC #### [facility] [address] [place] [address] Dr. Doreen Betancourt MCH (RBC) [Entitic mass] 33.2 pg Normal 26.7-34.0 [facility] Comment on above: Performed By: #### C BC #### [facility] [address] [place] [address] Dr. Doreen Betancourt MCHC (RBC) [Mass/Vol] 32.0 g/dL Normal 29.9-35.2 [facility] Comment on above: Performed By: #### C BC #### [facility] [address] [place], [place] [id number] Dr. Doreen Betancourt MCV (RBC) [Entitic vol] 104.1 fL Critically high 81.0-99.0 [facility] Comment on above: Performed By: #### C BC #### [facility] [address] [place] [address] Dr. Doreen Betancourt MONO # 0.7 103/ul Normal 0.3-0.8 [facility] Comment on above: Performed By: #### C BC #### [facility] [address] [place] [address] Dr. Doreen Betancourt Monocytes/100 WBC (Bld) 18.7 % Critically high 1.7-12.0 [facility] Comment on above: Performed By: #### C BC #### [facility] [address] [place] [address] Dr. Doreen Betancourt NEUT # 0.9 103/ul Critically low 1.4-6.5 [facility] Comment on above: Performed By: #### C BC #### [facility] [address] [place] [address] Dr. Doreen Betancourt Neutrophils/100 WBC (Bld) 24.8 % Critically low 43.0-75.0 [facility] Comment on above: Performed By: #### C BC #### [facility] [address] [place] [address] Dr. Doreen Betancourt Platelet mean volume (Bld) [Entitic vol] 10.5 fL Normal 9.5-13.5 [facility] Comment on above: Performed By: #### C BC #### [facility] [address] [place] [address] Dr. Doreen Betancourt PLT 121 103/ul Critically low 150-450 [facility] Comment on above: Performed By: #### C BC #### [facility] [address] [place] [address] Dr. Doreen Betancourt RBC 3.94 106/ul Critically low 4.20-5.40 [facility] Comment on above: Performed By: #### C BC #### [facility] [address] [place] [address] Dr. Doreen Betancourt WBC 3.6 103/ul Critically low 4.0-11.0 [facility] Comment on above: Performed By: #### C BC #### [facility] [address] [place] [address] Dr. Doreen Betancourt MAGNESIUMon 11-16-2022 Magnesium [Mass/Vol] 2.0 mg/dL Normal 1.8-2.4 [facility] Comment on above: Performed By: #### M G, CMP #### [facility] [address] [place] [address] Dr. Doreen Betancourt PROF 14(COMP METB)on 023 Albumin [Mass/Vol] 3.7 g/dL Normal 3.4-5.0 [facility] Comment on above: Performed By: #### M G, CMP #### [facility] [address] [place] [address] Dr. Doreen Betancourt Albumin/Globulin [Mass ratio] 1.0 {ratio} Normal [facility] Comment on above: Performed By: #### M G, CMP #### [facility] [address] [place] [address] Dr. Doreen Betancourt ALP [Catalytic activity/Vol] 161 U/L Critically high 46-116 [facility] Comment on above: Performed By: #### M G, CMP #### [facility] [address] [place] [address] Dr. Doreen Betancourt ALT [Catalytic activity/Vol] 49 U/L Normal 14-59 [facility] Comment on above: Performed By: #### M G, CMP #### [facility] [address] [place] [address] Dr. Doreen Betancourt Anion gap [Moles/Vol] 9.8 mmol/L Normal [facility] Comment on above: Performed By: #### M G, CMP #### [facility] [address] [place] [address] Dr. Doreen Betancourt AST [Catalytic activity/Vol] 44 U/L Critically high 15-37 [facility] Comment on above: Performed By: #### M G, CMP #### [facility] [address] [place] [address] Dr. Doreen Betancourt Bilirubin [Mass/Vol] 0.4 mg/dL Normal 0.2-1.0 [facility] Comment on above: Performed By: #### M G, CMP #### [facility] [address] [place] [address] Dr. Doreen Betancourt Calcium [Mass/Vol] 9.6 mg/dL Normal 8.5-10.1 [facility] Comment on above: Performed By: #### M G, CMP #### [facility] [address] [place] [address] Dr. Doreen Betancourt Chloride [Moles/Vol] 106 mmol/L Normal 98-107 [facility] Comment on above: Performed By: #### M G, CMP #### [facility] [address] [place] [address] Dr. Doreen Betancourt CO2 [Moles/Vol] 30.1 mmol/L Normal 21.0-32.0 [facility] Comment on above: Performed By: #### M G, CMP #### [facility] [address] [place] [address] Dr. Doreen Betancourt Creatinine [Mass/Vol] 0.68 mg/dL Normal 0.55-1.02 [facility] Comment on above: Performed By: #### M G, CMP #### [facility] [address] [place] [address] Dr. Doreen Betancourt EGFR-AF [place] >60 Normal >=60 [facility] Comment on above: Performed By: #### M G, CMP #### [facility] [address] [place] [address] Dr. Doreen Betancourt EGFR-NON AF [place] >60 Normal >=60 [facility] Comment on above: Performed By: #### M G, CMP #### [facility] [address] [place] [address] Dr. Doreen Betancourt Globulin (S) [Mass/Vol] 3.7 g/dL Normal [facility] Comment on above: Performed By: #### M G, CMP #### [facility] [address] [place] [address] Dr. Doreen Betancourt Glucose [Mass/Vol] 107 mg/dL Critically high 74-106 [facility] Comment on above: Performed By: #### M G, CMP #### [facility] [address] [place] [address] Dr. Doreen Betancourt Potassium [Moles/Vol] 4.9 mmol/L Normal 3.5-5.1 [facility] Comment on above: Performed By: #### M G, CMP #### [facility] [address] [place] [address] Dr. Doreen Betancourt Protein [Mass/Vol] 7.4 g/dL Normal 6.4-8.2 [facility] Comment on above: Performed By: #### M G, CMP #### [facility] [address] [place] [address] Dr. Doreen Betancourt Sodium [Moles/Vol] 141 mmol/L Normal 136-145 [facility] Comment on above: Performed By: #### M G, CMP #### [facility] [address] [place] [address] Dr. Doreen Betancourt Urea nitrogen [Mass/Vol] 11.0 mg/dL Normal 7.0-18.0 [facility] Comment on above: Performed By: #### M G, CMP #### [facility] [address] [place] [address] Dr. Doreen Betancourt Urea nitrogen/Creatinine [Mass ratio] 16.2 mg/mg Normal [facility] Comment on above: Performed By: #### M G, CMP #### [facility] [address] [place] [address] Dr. Doreen Betancourt CBC AUTO DIFFon 11-02-2022 BASO # 0.0 103/ul Normal 0.0-0.1 [facility] Comment on above: Performed By: #### M G, CMP #### [facility] [address] [place] [address] Dr. Doreen Betancourt Basophils/100 WBC (Bld) 0.5 % Normal 0.2-2.0 [facility] Comment on above: Performed By: #### Gay G, CMP #### [facility] [address] [place] [address] Dr. Doreen Betancourt EO # 0.0 103/ul Normal 0.0-0.7 [facility] Comment on above: Performed By: #### M G, CMP #### [facility] [address] [place] [address] Dr. Doreen Betancourt Eosinophils/100 WBC (Bld) 0.8 % Critically low 0.9-7.0 [facility] Comment on above: Performed By: #### M G, CMP #### [facility] [address] [place] [address] Dr. Doreen Betancourt Erythrocyte distribution width (RBC) [Ratio] 13.2 % Normal 11.0-15.0 [facility] Comment on above: Performed By: #### M G, CMP #### [facility] [address] [place] [address] Dr. Doreen Betancourt Hematocrit (Bld) [Volume fraction] 40.7 % Normal 36.0-48.0 [facility] Comment on above: Performed By: #### M G, CMP #### [facility] [address] [place] [address] Dr. Doreen Betancourt Hemoglobin (Bld) [Mass/Vol] 13.5 g/dL Normal 12.0-16.0 [facility] Comment on above: Performed By: #### M G, CMP #### [facility] [address] [place] [address] Dr. Doreen Betancourt IG # 0.00 10e3/ul Normal 0.00-0.03 [facility] Comment on above: Performed By: #### M G, CMP #### [facility] [address] [place] [address] Dr. Doreen Betancourt IG % 0.0 % Normal 0.0-0.5 [facility] Comment on above: Performed By: #### M G, CMP #### [facility] [address] [place] [address] Dr. Doreen Betancourt LYMPH # 1.9 103/ul Normal 1.2-3.8 [facility] Comment on above: Performed By: #### M G, CMP #### [facility] [address] [place] [address] Dr. Doreen Betancourt Lymphocytes/100 WBC (Bld) 51.8 % Normal 20.5-60.0 [facility] Comment on above: Performed By: #### M G, CMP #### [facility] [address] [place] [address] Dr. Doreen Betancourt MANUAL DIFF REQ NO Normal [facility] Comment on above: Performed By: #### M G, CMP #### [facility] [address] [place] [address] Dr. Doreen Betancourt MCH (RBC) [Entitic mass] 34.3 pg Critically high 26.7-34.0 [facility] Comment on above: Performed By: #### M G, CMP #### [facility] [address] [place] [address] Dr. Doreen Betancourt MCHC (RBC) [Mass/Vol] 33.2 g/dL Normal 29.9-35.2 [facility] Comment on above: Performed By: #### M G, CMP #### [facility] [address] [place] [address] Dr. Doreen Betancourt MCV (RBC) [Entitic vol] 103.3 fL Critically high 81.0-99.0 [facility] Comment on above: Performed By: #### M G, CMP #### [facility] [address] [place] [address] Dr. Doreen Betancourt MONO # 0.5 103/ul Normal 0.3-0.8 [facility] Comment on above: Performed By: #### M G, CMP #### [facility] [address] [place] [address] Dr. Doreen Betancourt Monocytes/100 WBC (Bld) 13.9 % Critically high 1.7-12.0 [facility] Comment on above: Performed By: #### M G, CMP #### [facility] [address] [place] [address] Dr. Doreen Betancourt NEUT # 1.2 103/ul Critically low 1.4-6.5 [facility] Comment on above: Performed By: #### M G, CMP #### [facility] [address] [address] [address] Doreen Betancourt Neutrophils/100 WBC (Bld) 33.0 % Critically low 43.0-75.0 [facility] Comment on above: Performed By: #### M G, CMP #### [facility] [address] [address] [address] Doreen Betancourt Platelet mean volume (Bld) [Entitic vol] 10.0 fL Normal 9.5-13.5 [facility] Comment on above: Performed By: #### M G, CMP #### [facility] [address] [address] [address] Doreen Betancourt PLT 129 103/ul Critically low 150-450 [facility] Comment on above: Performed By: #### M G, CMP #### [facility] [address] [place] [address] Dr. Doreen Betancourt RBC 3.94 106/ul Critically low 4.20-5.40 [facility] Comment on above: Performed By: #### M G, CMP #### [facility] [address] [place] [address] Dr. Droeen Betancourt WBC 3.7 103/ul Critically low 4.0-11.0 [facility] Comment on above: Performed By: #### M G, CMP #### [facility] [address] [place] [address] Dr. Doreen Betancourt MAGNESIUMon 11-02-2022 Magnesium [Mass/Vol] 2.0 mg/dL Normal 1.8-2.4 [facility] Comment on above: Performed By: #### M G, CMP #### [facility] [address] [place] [address] Dr. Doreen Betancourt PROF 14(COMP METB)on 023 Albumin [Mass/Vol] 3.7 g/dL Normal 3.4-5.0 [facility] Comment on above: Performed By: #### Gay G, CMP #### [facility] [address] [place] [address] Dr. Doreen Betancourt Albumin/Globulin [Mass ratio] 1.0 {ratio} Normal [facility] Comment on above: Performed By: #### M G, CMP #### [facility] [address] [place] [address] Dr. Doreen Betancourt ALP [Catalytic activity/Vol] 133 U/L Critically high 46-116 [facility] Comment on above: Performed By: #### M G, CMP #### [facility] [address] [place] [address] Dr. Doreen Betancourt ALT [Catalytic activity/Vol] 47 U/L Normal 14-59 [facility] Comment on above: Performed By: #### M G, CMP #### [facility] [address] [place] [address] Dr. Doreen Betancourt Anion gap [Moles/Vol] 10.8 mmol/L Normal [facility] Comment on above: Performed By: #### Gay G, CMP #### [facility] [address] [place] [address] Dr. Doreen Betancourt AST [Catalytic activity/Vol] 39 U/L Critically high 15-37 [facility] Comment on above: Performed By: #### Gay G, CMP #### [facility] [address] [place] [address] Dr. Doreen Betancourt Bilirubin [Mass/Vol] 0.5 mg/dL Normal 0.2-1.0 [facility] Comment on above: Performed By: #### Gay G, CMP #### [facility] [address] [place] [address] Dr. Doreen Betancourt Calcium [Mass/Vol] 9.4 mg/dL Normal 8.5-10.1 [facility] Comment on above: Performed By: #### M G, CMP #### [facility] [address] [place] [address] Dr. Doreen Betancourt Chloride [Moles/Vol] 107 mmol/L Normal 98-107 [facility] Comment on above: Performed By: #### M G, CMP #### [facility] [address] [place] [address] Dr. Doreen Betancourt CO2 [Moles/Vol] 27.7 mmol/L Normal 21.0-32.0 [facility] Comment on above: Performed By: #### M G, CMP #### [facility] [address] [place] [address] Dr. Doreen Betancourt Creatinine [Mass/Vol] 0.70 mg/dL Normal 0.55-1.02 [facility] Comment on above: Performed By: #### M G, CMP #### [facility] [address] [address] [address] Doreen Betancourt EGFR-AF [place] >60 Normal >=60 [facility] Comment on above: Performed By: #### M G, CMP #### [facility] [address] [place] [address] Dr. Doreen Betancourt EGFR-NON AF [place] >60 Normal >=60 [facility] Comment on above: Performed By: #### M G, CMP #### [facility] [address] [place] [address] Dr. Doreen Betancourt Globulin (S) [Mass/Vol] 3.7 g/dL Normal [facility] Comment on above: Performed By: #### M G, CMP #### [facility] [address] [place] [address] Dr. Doreen Betancourt Glucose [Mass/Vol] 99 mg/dL Normal 74-106 [facility] Comment on above: Performed By: #### M G, CMP #### [facility] [address] [place] [address] Dr. Doreen Betancourt Potassium [Moles/Vol] 4.5 mmol/L Normal 3.5-5.1 [facility] Comment on above: Performed By: #### M G, CMP #### [facility] [address] [place] [address] Dr. Doreen Betancourt Protein [Mass/Vol] 7.4 g/dL Normal 6.4-8.2 [facility] Comment on above: Performed By: #### M G, CMP #### [facility] [address] [place] [address] Dr. Doreen Betancourt Sodium [Moles/Vol] 141 mmol/L Normal 136-145 [facility] Comment on above: Performed By: #### M G, CMP #### [facility] [address] [place] [address] Dr. Doreen Betancourt Urea nitrogen [Mass/Vol] 13.0 mg/dL Normal 7.0-18.0 [facility] Comment on above: Performed By: #### M G, CMP #### [facility] [address] [place] [address] Dr. Doreen Betancourt Urea nitrogen/Creatinine [Mass ratio] 18.6 mg/mg Normal [facility] Comment on above: Performed By: #### M G, CMP #### [facility] [address] [place] [address] Dr. Doreen Betancourt CBC AUTO DIFFon 10-19-2022 BASO # 0.1 103/ul Normal 0.0-0.1 [facility] Comment on above: Performed By: #### C BC #### [facility] [address] [place] [address] Dr. Doreen Betancourt Basophils/100 WBC (Bld) 1.0 % Normal 0.2-2.0 [facility] Comment on above: Performed By: #### C BC #### [facility] [address] [place] [address] Dr. Doreen Betancourt EO # 0.0 103/ul Normal 0.0-0.7 [facility] Comment on above: Performed By: #### C BC #### [facility] [address] [place] [address] Dr. Doreen Betancourt Eosinophils/100 WBC (Bld) 0.8 % Critically low 0.9-7.0 [facility] Comment on above: Performed By: #### C BC #### [facility] [address] [place] [address] Dr. Doreen Betancorut Erythrocyte distribution width (RBC) [Ratio] 13.2 % Normal 11.0-15.0 [facility] Comment on above: Performed By: #### C BC #### [facility] [address] [place] [address] Dr. Doreen Betancourt Hematocrit (Bld) [Volume fraction] 40.3 % Normal 36.0-48.0 [facility] Comment on above: Performed By: #### C BC #### [facility] [address] [place] [address] Dr. Doreen Betancourt Hemoglobin (Bld) [Mass/Vol] 13.3 g/dL Normal 12.0-16.0 [facility] Comment on above: Performed By: #### C BC #### [facility] [address] [place] [address] Dr. Doreen Betancourt IG # 0.02 10e3/ul Normal 0.00-0.03 [facility] Comment on above: Performed By: #### C BC #### [facility] [address] [place] [address] Dr. Doreen Betancourt IG % 0.4 % Normal 0.0-0.5 [facility] Comment on above: Performed By: #### C BC #### [facility] [address] [place] [address] Dr. Doreen Betancourt LYMPH # 1.8 103/ul Normal 1.2-3.8 [facility] Comment on above: Performed By: #### C BC #### [facility] [address] [place] [address] Dr. Doreen Betancourt Lymphocytes/100 WBC (Bld) 36.8 % Normal 20.5-60.0 [facility] Comment on above: Performed By: #### C BC #### [facility] [address] [place] [address] Dr. Doreen Betancourt MANUAL DIFF REQ NO Normal [facility] Comment on above: Performed By: #### C BC #### [facility] [address] [place] [address] Dr. Doreen Betancourt MCH (RBC) [Entitic mass] 33.8 pg Normal 26.7-34.0 [facility] Comment on above: Performed By: #### C BC #### [facility] [address] [place] [address] Dr. Doreen Betancourt MCHC (RBC) [Mass/Vol] 33.0 g/dL Normal 29.9-35.2 [facility] Comment on above: Performed By: #### C BC #### [facility] [address] [address] [address] Doreen Betancourt MCV (RBC) [Entitic vol] 102.5 fL Critically high 81.0-99.0 [facility] Comment on above: Performed By: #### C BC #### [facility] [address] [address] [address] Doreen Betancourt MONO # 0.6 103/ul Normal 0.3-0.8 [facility] Comment on above: Performed By: #### C BC #### [facility] [address] [address] [address] Doreen Betancourt Monocytes/100 WBC (Bld) 12.3 % Critically high 1.7-12.0 [facility] Comment on above: Performed By: #### C BC #### [facility] [address] [place] [address] Dr. Doreen Betancourt NEUT # 2.4 103/ul Normal 1.4-6.5 [facility] Comment on above: Performed By: #### C BC #### [facility] [address] [place] [address] Dr. Doreen Betancourt Neutrophils/100 WBC (Bld) 48.7 % Normal 43.0-75.0 [facility] Comment on above: Performed By: #### C BC #### [facility] [address] [address] [address] Doreen Betancourt Platelet mean volume (Bld) [Entitic vol] 10.3 fL Normal 9.5-13.5 [facility] Comment on above: Performed By: #### C BC #### [facility] [address] [place] [address] Dr. Doreen Betnacourt PLT 239 103/ul Normal 150-450 [facility] Comment on above: Performed By: #### C BC #### [facility] [address] [place] [address] Dr. Doreen Betancourt RBC 3.93 106/ul Critically low 4.20-5.40 [facility] Comment on above: Performed By: #### C BC #### [facility] [address] [place] [address] Dr. Doreen Betancourt WBC 4.9 103/ul Normal 4.0-11.0 [facility] Comment on above: Performed By: #### C BC #### [facility] [address] [place] [address] Dr. Doreen Betancourt MAGNESIUMon 10-19-2022 Magnesium [Mass/Vol] 1.9 mg/dL Normal 1.8-2.4 [facility] Comment on above: Performed By: #### M G, CMP #### [facility] [address] [place] [address] Dr. Doreen Betancourt PROF 14(COMP METB)on 023 Albumin [Mass/Vol] 3.5 g/dL Normal 3.4-5.0 [facility] Comment on above: Performed By: #### C MP, MG #### [facility] [address] [place] [address] Dr. Doreen Betancourt Albumin/Globulin [Mass ratio] 0.9 {ratio} Normal [facility] Comment on above: Performed By: #### C MP, MG #### [facility] [address] [place] [address] Dr. Doreen Betancourt ALP [Catalytic activity/Vol] 153 U/L Critically high 46-116 [facility] Comment on above: Performed By: #### C MP, MG #### [facility] [address] [place] [address] Dr. Doreen Betancourt ALT [Catalytic activity/Vol] 36 U/L Normal 14-59 [facility] Comment on above: Performed By: #### C MP, MG #### [facility] [address] [place] [address] Dr. Doreen Betancourt Anion gap [Moles/Vol] 11.7 mmol/L Normal [facility] Comment on above: Performed By: #### C MP, MG #### [facility] [address] [place] [address] Dr. Doreen Betancourt AST [Catalytic activity/Vol] 30 U/L Normal 15-37 [facility] Comment on above: Performed By: #### C MP, MG #### [facility] [address] [address] [address] Doreen Betancourt Bilirubin [Mass/Vol] 0.5 mg/dL Normal 0.2-1.0 [facility] Comment on above: Performed By: #### C MP, MG #### [facility] [address] [place] [address] Dr. Doreen Betancourt Calcium [Mass/Vol] 9.2 mg/dL Normal 8.5-10.1 [facility] Comment on above: Performed By: #### C MP, MG #### [facility] [address] [place] [address] Dr. Doreen Betancourt Chloride [Moles/Vol] 105 mmol/L Normal 98-107 [facility] Comment on above: Performed By: #### C MP, MG #### [facility] [address] [place] [address] Dr. Doreen Betancourt CO2 [Moles/Vol] 27.3 mmol/L Normal 21.0-32.0 [facility] Comment on above: Performed By: #### C MP, MG #### [facility] [address] [place] [address] Dr. Doreen Betancourt Creatinine [Mass/Vol] 0.75 mg/dL Normal 0.55-1.02 [facility] Comment on above: Performed By: #### C MP, MG #### [facility] [address] [place] [address] Dr. Doreen Betancourt EGFR-AF [place] >60 Normal >=60 [facility] Comment on above: Performed By: #### C MP, MG #### [facility] [address] [place] [address] Dr. Doreen Betancourt EGFR-NON AF [place] >60 Normal >=60 [facility] Comment on above: Performed By: #### C MP, MG #### [facility] [address] [place] [address] Dr. Doreen Betancourt Globulin (S) [Mass/Vol] 4.0 g/dL Normal [facility] Comment on above: Performed By: #### C MP, MG #### [facility] [address] [address] [address] Doreen Betancourt Glucose [Mass/Vol] 89 mg/dL Normal 74-106 [facility] Comment on above: Performed By: #### C MP, MG #### [facility] [address] [address] [address] Doreen Betancourt Potassium [Moles/Vol] 4.0 mmol/L Normal 3.5-5.1 [facility] Comment on above: Performed By: #### C MP, MG #### [facility] [address] [address] [address] Doreen Betancourt Protein [Mass/Vol] 7.5 g/dL Normal 6.4-8.2 [facility] Comment on above: Performed By: #### C MP, MG #### [facility] [address] [address] [address] Doreen Betancourt Sodium [Moles/Vol] 140 mmol/L Normal 136-145 [facility] Comment on above: Performed By: #### C MP, MG #### [facility] [address] [address] [address] Doreen Betancourt Urea nitrogen [Mass/Vol] 18.0 mg/dL Normal 7.0-18.0 [facility] Comment on above: Performed By: #### C MP, MG #### [facility] [address] [address] [address] Doreen Betancourt Urea nitrogen/Creatinine [Mass ratio] 24.0 mg/mg Normal [facility] Comment on above: Performed By: #### C MP, MG #### [facility] [address] [address] [address] Doreen Betancourt Magnesium [Mass/volume] in S daljit or PlasmaOrdered By: Isaías Jordan on 09-23-2022 Magnesium [Mass/Vol] 2.2 mg/dL 1.9-2.7 [facility] CBC AUTO DIFFon 09-14-2022 BASO # 0.0 103/ul Normal 0.0-0.1 [facility] Comment on above: Performed By: #### C BC #### [facility] [address] [address] [address] Doreen Betancourt Basophils/100 WBC (Bld) 0.3 % Normal 0.2-2.0 [facility] Comment on above: Performed By: #### C BC #### [facility] [address] [place] [address] Dr. Doreen Betancourt EO # 0.0 103/ul Normal 0.0-0.7 [facility] Comment on above: Performed By: #### C BC #### [facility] [address] [place] [address] Dr. Doreen Betanocurt Eosinophils/100 WBC (Bld) 0.9 % Normal 0.9-7.0 [facility] Comment on above: Performed By: #### C BC #### [facility] [address] [place] [address] Dr. Doreen Betancourt Erythrocyte distribution width (RBC) [Ratio] 16.3 % Critically high 11.0-15.0 [facility] Comment on above: Performed By: #### C BC #### [facility] [address] [place] [address] Dr. Doreen Betancourt Hematocrit (Bld) [Volume fraction] 37.3 % Normal 36.0-48.0 [facility] Comment on above: Performed By: #### C BC #### [facility] [address] [place] [address] Dr. Doreen Betancourt Hemoglobin (Bld) [Mass/Vol] 12.4 g/dL Normal 12.0-16.0 [facility] Comment on above: Performed By: #### C BC #### [facility] [address] [place] [address] Dr. Doreen Betancourt IG # 0.01 10e3/ul Normal 0.00-0.03 [facility] Comment on above: Performed By: #### C BC #### [facility] [address] [place] [address] Dr. Doreen Betancourt IG % 0.3 % Normal 0.0-0.5 [facility] Comment on above: Performed By: #### C BC #### [facility] [address] [place] [address] Dr. Doreen Betancourt LYMPH # 1.1 103/ul Critically low 1.2-3.8 [facility] Comment on above: Performed By: #### C BC #### [facility] [address] [place] [address] Dr. Doreen Betancourt Lymphocytes/100 WBC (Bld) 30.7 % Normal 20.5-60.0 [facility] Comment on above: Performed By: #### C BC #### [facility] [address] [place] [address] Dr. Doreen Betancourt MANUAL DIFF REQ NO Normal [facility] Comment on above: Performed By: #### C BC #### [facility] [address] [place] [address] Dr. Doreen Betancourt MCH (RBC) [Entitic mass] 34.3 pg Critically high 26.7-34.0 [facility] Comment on above: Performed By: #### C BC #### [facility] [address] [place] [address] Dr. Doreen Betancourt MCHC (RBC) [Mass/Vol] 33.2 g/dL Normal 29.9-35.2 [facility] Comment on above: Performed By: #### C BC #### [facility] [address] [place] [address] Dr. Doreen Betancourt MCV (RBC) [Entitic vol] 103.3 fL Critically high 81.0-99.0 [facility] Comment on above: Performed By: #### C BC #### [facility] [address] [place] [address] Dr. Doreen Betancourt MONO # 0.4 103/ul Normal 0.3-0.8 [facility] Comment on above: Performed By: #### C BC #### [facility] [address] [place] [address] Dr. Doreen Betancourt Monocytes/100 WBC (Bld) 11.4 % Normal 1.7-12.0 [facility] Comment on above: Performed By: #### C BC #### [facility] [address] [place] [address] Dr. Doreen Betancourt NEUT # 2.0 103/ul Normal 1.4-6.5 [facility] Comment on above: Performed By: #### C BC #### [facility] [address] [place] [address] Dr. Doreen Betancourt Neutrophils/100 WBC (Bld) 56.4 % Normal 43.0-75.0 [facility] Comment on above: Performed By: #### C BC #### [facility] [address] [place] [address] Dr. Doreen Betancourt Platelet mean volume (Bld) [Entitic vol] 10.0 fL Normal 9.5-13.5 [facility] Comment on above: Performed By: #### C BC #### [facility] [address] [place] [address] Dr. Doreen Betancourt PLT 128 103/ul Critically low 150-450 [facility] Comment on above: Performed By: #### C BC #### [facility] [address] [place] [address] Dr. Doreen Betancourt RBC 3.61 106/ul Critically low 4.20-5.40 [facility] Comment on above: Performed By: #### C BC #### [facility] [address] [place] [address] Dr. Doreen Betancourt WBC 3.5 103/ul Critically low 4.0-11.0 [facility] Comment on above: Performed By: #### C BC #### [facility] [address] [place] [address] Dr. Doreen Betancourt MAGNESIUMon 09-14-2022 Magnesium [Mass/Vol] 1.9 mg/dL Normal 1.8-2.4 [facility] Comment on above: Performed By: #### C VDTBH #### [facility] [address] [place] [address] Dr. Doreen Betancourt PROF 14(COMP METB)on 023 Albumin [Mass/Vol] 3.7 g/dL Normal 3.4-5.0 [facility] Comment on above: Performed By: #### C VDTBH #### [facility] [address] [address] [address] Doreen Betancourt Albumin/Globulin [Mass ratio] 1.1 {ratio} Normal [facility] Comment on above: Performed By: #### C VDTBH #### [facility] [address] [address] [address] Doreen Betancourt ALP [Catalytic activity/Vol] 138 U/L Critically high 46-116 [facility] Comment on above: Performed By: #### C VDTBH #### [facility] [address] [address] [address] Doreen Betancourt ALT [Catalytic activity/Vol] 42 U/L Normal 14-59 [facility] Comment on above: Performed By: #### C VDTBH #### [facility] [address] [place] [address] Dr. Doreen Betancourt Anion gap [Moles/Vol] 11.0 mmol/L Normal [facility] Comment on above: Performed By: #### C VDTBH #### [facility] [address] [place] [address] Dr. Doreen Betancourt AST [Catalytic activity/Vol] 36 U/L Normal 15-37 [facility] Comment on above: Performed By: #### C VDTBH #### [facility] [address] [place] [address] Dr. Doreen Betancourt Bilirubin [Mass/Vol] 0.5 mg/dL Normal 0.2-1.0 [facility] Comment on above: Performed By: #### C VDTBH #### [facility] [address] [place] [address] Dr. Doreen Betancourt Calcium [Mass/Vol] 9.6 mg/dL Normal 8.5-10.1 [facility] Comment on above: Performed By: #### C VDTBH #### [facility] [address] [place] [address] Dr. Doreen Betancourt Chloride [Moles/Vol] 104 mmol/L Normal 98-107 [facility] Comment on above: Performed By: #### C VDTBH #### [facility] [address] [address] [address] Doreen Betancourt CO2 [Moles/Vol] 29.8 mmol/L Normal 21.0-32.0 [facility] Comment on above: Performed By: #### C VDTBH #### [facility] [address] [place] [address] Dr. Doreen Betancourt Creatinine [Mass/Vol] 0.62 mg/dL Normal 0.55-1.02 [facility] Comment on above: Performed By: #### C VDTBH #### [facility] [address] [place] [address] Dr. Doreen Betancourt EGFR-AF [place] >60 Normal >=60 [facility] Comment on above: Performed By: #### C VDTBH #### [facility] [address] [place] [address] Dr. Doreen Betancourt EGFR-NON AF [place] >60 Normal >=60 [facility] Comment on above: Performed By: #### C VDTBH #### [facility] [address] [place] [address] Dr. Doreen Betancourt Globulin (S) [Mass/Vol] 3.4 g/dL Normal [facility] Comment on above: Performed By: #### C VDTBH #### [facility] [address] [place] [address] Dr. Doreen Betancourt Glucose [Mass/Vol] 115 mg/dL Critically high 74-106 [facility] Comment on above: Performed By: #### C VDTBH #### [facility] [address] [place] [address] Dr. Doreen Betancourt Potassium [Moles/Vol] 4.8 mmol/L Normal 3.5-5.1 [facility] Comment on above: Performed By: #### C VDTBH #### [facility] [address] [place] [address] Dr. Doreen Betancourt Protein [Mass/Vol] 7.1 g/dL Normal 6.4-8.2 [facility] Comment on above: Performed By: #### C VDTBH #### [facility] [address] [address] [address] Doreen Betancourt Sodium [Moles/Vol] 140 mmol/L Normal 136-145 [facility] Comment on above: Performed By: #### C VDTBH #### [facility] [address] [place] [address] Dr. Doreen Betancourt Urea nitrogen [Mass/Vol] 14.0 mg/dL Normal 7.0-18.0 [facility] Comment on above: Performed By: #### C VDTBH #### [facility] [address] [place] [address] Dr. Doreen Betancourt Urea nitrogen/Creatinine [Mass ratio] 22.6 mg/mg Normal [facility] Comment on above: Performed By: #### C VDTBH #### [facility] [address] [place] [address] Dr. Doreen Betancourt HEP B SURFACE ANTIGEN SCREEN on 09-03-2022 HBsAg Screen Negative Normal Negative [facility] Comment on above: Performed By: #### C VDTB #### [facility] [address] [place] [address] Dr. Doreen Betancourt HEPATITIS B SURFACE ANTIBODY , QUANTon 09-03-2022 Hepatitis B Surf AB Quant 46.7 mIU/mL Normal Immunity>9. 9 [facility] Comment on above: Result Comment: Stat us of Immunity Anti-HBs Level Inconsistent with Immunity 0.0 - 9.9 Consistent with Immunity >9.9 Performed By: #### M G, [facility] #### [facility] [address] [place] [address] Dr. Doreen Betancourt HEPATITIS C ANTIBODYon 09-03 Hep C Virus Ab Non-Reactive Normal Non Reactive [facility] Comment on above: Result Comment: HCV antibody alone does not differentiate between previously resolved infection and active infection. Equivocal and Reactive HCV antibody results should be followed up with an HCV RNA test to support the diagnosis of active HCV infection. Performed By: #### C VDTBH #### [facility] [address] [place] [address] Dr. Doreen Betancourt RPR QUANTon 09-03-2022 Rapid Plasma Reagin, Quant Non-Reactive Normal NonRea<1:1 [facility] Comment on above: Result Comment: Noelle tinajero Note: This test does not meet current guidelines for screening and diagnosis of syphilis. This test is intended for following treatment response in patients being treated for syphilis infection. To screen for syphilis infection, a reflex cascade that includes both RPR and a treponema-specific assay should be utilized, such as Treponema pallidum (Syphilis) Screening [place] (548571) or Rapid Plasma Reagin (RPR) Test With Reflex to Quantitative RPR and Confirmatory Treponema pallidum Antibodies (795043). Performed By: #### Gay Martino, CMP #### [facility] [address] [place] [address] Dr. Doreen Betancourt HIV 1/2 RAPID (EXPOSURE ONLY )on 09-01-2022 HIV AB Non-Reactive Normal NON-REACTIV E [facility] Comment on above: Performed By: #### Gay Martino, CMP #### [facility] [address] [place] [address] Dr. Doreen Betancourt HIV AG Non-Reactive Normal NON-REACTIV E [facility] Comment on above: Performed By: #### Gay G, CMP #### [facility] [address] [place] [address] Dr. Doreen Betancourt INTERNAL CONTROLS Within Normal Limits Normal Wi thin Normal Limits [facility] Comment on above: Performed By: #### Gay Martino, CMP #### [facility] [address] [place] [address] Dr. Doreen Betancourt RAPID HIV INFO SEE BELOW Normal [facility] Comment on above: Result Comment: This test is used for the initial screening of the exposure source. Confirmation of all reactive results will be obtained through reference lab testing. Performed By: #### aGy G, CMP #### [facility] [address] [place] [address] Dr. Doreen Betancourt CBC AUTO DIFFon 08-31-2022 BASO # 0.0 103/ul Normal 0.0-0.1 [facility] Comment on above: Performed By: #### M G, CMP #### [facility] [address] [place] [address] Dr. Doreen Betancourt Basophils/100 WBC (Bld) 0.7 % Normal 0.2-2.0 [facility] Comment on above: Performed By: #### M G, CMP #### [facility] [address] [place] [address] Dr. Doreen Betancourt EO # 0.0 103/ul Normal 0.0-0.7 [facility] Comment on above: Performed By: #### M G, CMP #### [facility] [address] [place] [address] Dr. Doreen eBtancourt Eosinophils/100 WBC (Bld) 0.7 % Critically low 0.9-7.0 [facility] Comment on above: Performed By: #### M G, CMP #### [facility] [address] [place] [address] Dr. Doreen Betancourt Erythrocyte distribution width (RBC) [Ratio] 18.2 % Critically high 11.0-15.0 [facility] Comment on above: Performed By: #### M G, CMP #### [facility] [address] [place] [address] Dr. Doreen Betancourt Hematocrit (Bld) [Volume fraction] 37.8 % Normal 36.0-48.0 [facility] Comment on above: Performed By: #### M G, CMP #### [facility] [address] [place] [address] Dr. Doreen Betancourt Hemoglobin (Bld) [Mass/Vol] 12.3 g/dL Normal 12.0-16.0 [facility] Comment on above: Performed By: #### M G, CMP #### [facility] [address] [place] [address] Dr. Doreen Betancourt IG # 0.01 10e3/ul Normal 0.00-0.03 [facility] Comment on above: Performed By: #### M G, CMP #### [facility] [address] [place] [address] Dr. Doreen Betancourt IG % 0.3 % Normal 0.0-0.5 [facility] Comment on above: Performed By: #### M G, CMP #### [facility] [address] [address] [address] Doreen Betancourt LYMPH # 1.5 103/ul Normal 1.2-3.8 [facility] Comment on above: Performed By: #### M G, CMP #### [facility] [address] [address] [address] Doreen Betancourt Lymphocytes/100 WBC (Bld) 49.5 % Normal 20.5-60.0 [facility] Comment on above: Performed By: #### M G, CMP #### [facility] [address] [address] [address] Doreen Betancourt MANUAL DIFF REQ NO Normal [facility] Comment on above: Performed By: #### M G, CMP #### [facility] [address] [place] [address] Dr. Doreen Betancourt MCH (RBC) [Entitic mass] 33.3 pg Normal 26.7-34.0 [facility] Comment on above: Performed By: #### M G, CMP #### [facility] [address] [address] [address] Doreen Betancourt MCHC (RBC) [Mass/Vol] 32.5 g/dL Normal 29.9-35.2 [facility] Comment on above: Performed By: #### M G, CMP #### [facility] [address] [address] [address] Doreen Betancourt MCV (RBC) [Entitic vol] 102.4 fL Critically high 81.0-99.0 [facility] Comment on above: Performed By: #### M G, CMP #### [facility] [address] [address] [address] Doreen Betancourt MONO # 0.5 103/ul Normal 0.3-0.8 [facility] Comment on above: Performed By: #### M G, CMP #### [facility] [address] [address] [address] Doreen Betancourt Monocytes/100 WBC (Bld) 14.7 % Critically high 1.7-12.0 [facility] Comment on above: Performed By: #### M G, CMP #### [facility] [address] [place] [address] Dr. Doreen Betancourt NEUT # 1.1 103/ul Critically low 1.4-6.5 [facility] Comment on above: Performed By: #### M G, CMP #### [facility] [address] [place] [address] Dr. Doreen Betancourt Neutrophils/100 WBC (Bld) 34.1 % Critically low 43.0-75.0 [facility] Comment on above: Performed By: #### M G, CMP #### [facility] [address] [place] [address] Dr. Doreen Betancourt Platelet mean volume (Bld) [Entitic vol] 11.1 fL Normal 9.5-13.5 [facility] Comment on above: Performed By: #### M G, CMP #### [facility] [address] [place] [address] Dr. Doreen Betancourt PLT 117 103/ul Critically low 150-450 [facility] Comment on above: Performed By: #### M G, CMP #### [facility] [address] [place] [address] Dr. Doreen Betancourt RBC 3.69 106/ul Critically low 4.20-5.40 [facility] Comment on above: Performed By: #### M G, CMP #### [facility] [address] [place] [address] Dr. Doreen Betancourt WBC 3.1 103/ul Critically low 4.0-11.0 [facility] Comment on above: Performed By: #### M G, CMP #### [facility] [address] [place] [address] Dr. Doreen Betancourt MAGNESIUMon 08-31-2022 Magnesium [Mass/Vol] 2.0 mg/dL Normal 1.8-2.4 [facility] Comment on above: Performed By: #### M G, CMP #### [facility] [address] [place] [address] Dr. Doreen Betancourt PROF 14(COMP METB)on 023 Albumin [Mass/Vol] 3.4 g/dL Normal 3.4-5.0 [facility] Comment on above: Performed By: #### M G, CMP #### [facility] [address] [place] [address] Dr. Doreen Betancourt Albumin/Globulin [Mass ratio] 1.0 {ratio} Normal [facility] Comment on above: Performed By: #### M G, CMP #### [facility] [address] [place] [address] Dr. Doreen Betancourt ALP [Catalytic activity/Vol] 121 U/L Critically high 46-116 [facility] Comment on above: Performed By: #### M G, CMP #### [facility] [address] [place] [address] Dr. Doreen Betancourt ALT [Catalytic activity/Vol] 52 U/L Normal 14-59 [facility] Comment on above: Performed By: #### M G, CMP #### [facility] [address] [place] [address] Dr. Doreen Betancourt Anion gap [Moles/Vol] 11.5 mmol/L Normal [facility] Comment on above: Performed By: #### M G, CMP #### [facility] [address] [place] [address] Dr. Doreen Betancourt AST [Catalytic activity/Vol] 34 U/L Normal 15-37 [facility] Comment on above: Performed By: #### M G, CMP #### [facility] [address] [place] [address] Dr. Doreen Betancourt Bilirubin [Mass/Vol] 0.4 mg/dL Normal 0.2-1.0 [facility] Comment on above: Performed By: #### M G, CMP #### [facility] [address] [place] [address] Dr. Doreen Betancourt Calcium [Mass/Vol] 9.5 mg/dL Normal 8.5-10.1 [facility] Comment on above: Performed By: #### M G, CMP #### [facility] [address] [place] [address] Dr. Doreen Betancourt Chloride [Moles/Vol] 106 mmol/L Normal 98-107 [facility] Comment on above: Performed By: #### M G, CMP #### [facility] [address] [place] [address] Dr. Doreen Betancourt CO2 [Moles/Vol] 28.6 mmol/L Normal 21.0-32.0 [facility] Comment on above: Performed By: #### M G, CMP #### [facility] [address] [place] [address] Dr. Doreen Betancourt Creatinine [Mass/Vol] 0.60 mg/dL Normal 0.55-1.02 [facility] Comment on above: Performed By: #### M G, CMP #### [facility] [address] [place] [address] Dr. Doreen Betancourt EGFR-AF [place] >60 Normal >=60 [facility] Comment on above: Performed By: #### Gay G, CMP #### [facility] [address] [place] [address] Dr. Doreen Betancourt EGFR-NON AF [place] >60 Normal >=60 [facility] Comment on above: Performed By: #### M G, CMP #### [facility] [address] [place] [address] Dr. Doreen Betancourt Globulin (S) [Mass/Vol] 3.5 g/dL Normal [facility] Comment on above: Performed By: #### Gay G, CMP #### [facility] [address] [place] [address] Dr. Doreen Betancourt Glucose [Mass/Vol] 95 mg/dL Normal 74-106 [facility] Comment on above: Performed By: #### M G, CMP #### [facility] [address] [place] [address] Dr. Doreen Betancourt Potassium [Moles/Vol] 4.1 mmol/L Normal 3.5-5.1 [facility] Comment on above: Performed By: #### M G, CMP #### [facility] [address] [place] [address] Dr. Doreen Betancourt Protein [Mass/Vol] 6.9 g/dL Normal 6.4-8.2 [facility] Comment on above: Performed By: #### M G, CMP #### [facility] [address] [place] [address] Dr. Doreen Betancourt Sodium [Moles/Vol] 142 mmol/L Normal 136-145 [facility] Comment on above: Performed By: #### M G, CMP #### [facility] [address] [place] [address] Dr. Doreen Betancourt Urea nitrogen [Mass/Vol] 13.0 mg/dL Normal 7.0-18.0 [facility] Comment on above: Performed By: #### M G, CMP #### [facility] [address] [place] [address] Dr. Doreen Betancourt Urea nitrogen/Creatinine [Mass ratio] 21.7 mg/mg Normal [facility] Comment on above: Performed By: #### M G, CMP #### [facility] [address] [place] [address] Dr. Doreen Betancourt CBC W MANUAL DIFFon 08-16-19 23 ANISOCYTOSIS SLIGHT Normal [facility] Comment on above: Performed By: #### M G, CMP #### [facility] [address] [place] [address] Dr. Doreen Betancourt ATYPICAL LYMPH # Normal [facility] Comment on above: Performed By: #### M G, CMP #### [facility] [address] [place] [address] Dr. Doreen Betancourt ATYPICAL LYMPH % Normal [facility] Comment on above: Performed By: #### M G, CMP #### [facility] [address] [place] [address] Dr. Doreen Betancourt BAND # Normal 0.0-0.3 [facility] Comment on above: Performed By: #### M G, CMP #### [facility] [address] [place] [address] Dr. Doreen Betancourt BAND % Normal 0-5 [facility] Comment on above: Performed By: #### M G, CMP #### [facility] [address] [place] [address] Dr. Doreen Betancourt BASOM # 0.00 103/ul Normal 0.00-0.10 [facility] Comment on above: Performed By: #### M G, CMP #### [facility] [address] [place] [address] Dr. Doreen Betancourt BASOM % 0.0 % Critically low 0.2-2.0 [facility] Comment on above: Performed By: #### M G, CMP #### [facility] [address] [place] [address] Dr. Doreen Betancourt BLAST # Normal [facility] Comment on above: Performed By: #### M G, CMP #### [facility] [address] [place] [address] Dr. Doreen Betancourt BLAST % Normal [facility] Comment on above: Performed By: #### M G, CMP #### [facility] [address] [place] [address] Dr. Doreen Betancourt CORRECTED WBC Normal 4.0-11.0 [facility] Comment on above: Performed By: #### M G, CMP #### [facility] [address] [place] [address] Dr. Doreen Betancourt EOS # 0.00 103/ul Normal 0.00-0.70 [facility] Comment on above: Performed By: #### M G, CMP #### [facility] [address] [place] [address] Dr. Doreen Betancourt EOS% 0.0 % Critically low 0.9-7.0 [facility] Comment on above: Performed By: #### M G, CMP #### [facility] [address] [place] [address] Dr. Doreen Betancourt HCT 36.2 % Normal 36.0-48.0 [facility] Comment on above: Performed By: #### M G, CMP #### [facility] [address] [place] [address] Dr. Doreen Betancourt HGB 12.1 g/dl Normal 12.0-16.0 [facility] Comment on above: Performed By: #### M G, CMP #### [facility] [address] [address] [address] Doreen Betancourt LYMPHM # 2.08 103/ul Normal 1.20-3.80 [facility] Comment on above: Performed By: #### M G, CMP #### [facility] [address] [address] [address] Doreen Betancourt LYMPHM% 63.0 % Critically high 20.5-60.0 [facility] Comment on above: Performed By: #### M G, CMP #### [facility] [address] [address] [address] Doreen Betancourt MCH 33.0 pg Normal 26.7-34.0 [facility] Comment on above: Performed By: #### M G, CMP #### [facility] [address] [place] [address] Dr. Doreen Betancourt MCHC 33.4 g/dl Normal 29.9-35.2 [facility] Comment on above: Performed By: #### M G, CMP #### [facility] [address] [place] [address] Dr. Doreen Betancourt MCV 98.6 fL Normal 81.0-99.0 [facility] Comment on above: Performed By: #### M G, CMP #### [facility] [address] [place] [address] Dr. Doreen Betancourt METAMYELOCYTE # Normal [facility] Comment on above: Performed By: #### M G, CMP #### [facility] [address] [place] [address] Dr. Doreen Betancourt METAMYELOCYTE % Normal [facility] Comment on above: Performed By: #### M G, CMP #### [facility] [address] [address] [address] Doreen Betancourt MONOM# 0.33 103/ul Normal 0.30-0.80 [facility] Comment on above: Performed By: #### M G, CMP #### [facility] [address] [address] [address] Doreen Betancourt MONOM% 10.0 % Normal 1.7-12.0 [facility] Comment on above: Performed By: #### M G, CMP #### [facility] [address] [address] [address] Doreen Betancourt MPV 10.4 fL Normal 9.5-13.5 [facility] Comment on above: Performed By: #### M G, CMP #### [facility] [address] [place] [address] Dr. Doreen Betancourt MYELOCYTE # Normal [facility] Comment on above: Performed By: #### M G, CMP #### [facility] [address] [address] [address] Doreen Betancourt MYELOCYTE % Normal [facility] Comment on above: Performed By: #### M G, CMP #### [facility] [address] [place] [address] Dr. Doreen Betancourt NRBC Normal [facility] Comment on above: Performed By: #### M G, CMP #### [facility] [address] [place] [address] Dr. Doreen Betancourt PLT 92 103/ul Critically low 150-450 [facility] Comment on above: Performed By: #### M G, CMP #### [facility] [address] [place] [address] Dr. Doreen Betancourt RBC 3.67 106/ul Critically low 4.20-5.40 [facility] Comment on above: Performed By: #### M G, CMP #### [facility] [address] [place] [address] Dr. Doreen Betancourt RDW 17.8 % Critically high 11.0-15.0 [facility] Comment on above: Performed By: #### M G, CMP #### [facility] [address] [place] [address] Dr. Doreen Betancourt SEG # 0.89 103/ul Critically low 1.40-6.50 [facility] Comment on above: Performed By: #### M G, CMP #### [facility] [address] [place] [address] Dr. Doreen Betancourt SEG % 27.0 % Critically low 43.0-75.0 [facility] Comment on above: Performed By: #### M G, CMP #### [facility] [address] [place] [address] Dr. Doreen Betancourt WBC 3.3 103/ul Critically low 4.0-11.0 [facility] Comment on above: Performed By: #### M G, CMP #### [facility] [address] [place] [address] Dr. Doreen Betancourt MAGNESIUMon 08-16-2022 Magnesium [Mass/Vol] 2.1 mg/dL Normal 1.8-2.4 [facility] Comment on above: Performed By: #### C BC #### [facility] [address] [place] [address] Dr. Doreen Betancourt PROF 14(COMP METB)on 023 Albumin [Mass/Vol] 3.5 g/dL Normal 3.4-5.0 [facility] Comment on above: Performed By: #### C BC #### [facility] [address] [place] [address] Dr. Doreen Betancourt Albumin/Globulin [Mass ratio] 1.0 {ratio} Normal [facility] Comment on above: Performed By: #### C BC #### [facility] [address] [place] [address] Dr. Doreen Betancourt ALP [Catalytic activity/Vol] 131 U/L Critically high 46-116 [facility] Comment on above: Performed By: #### C BC #### [facility] [address] [place] [address] Dr. Doreen Betancourt ALT [Catalytic activity/Vol] 98 U/L Critically high 14-59 [facility] Comment on above: Performed By: #### C BC #### [facility] [address] [place] [address] Dr. Doreen Betancourt Anion gap [Moles/Vol] 12.3 mmol/L Normal [facility] Comment on above: Performed By: #### C BC #### [facility] [address] [place] [address] Dr. Doreen Betancourt AST [Catalytic activity/Vol] 78 U/L Critically high 15-37 [facility] Comment on above: Performed By: #### C BC #### [facility] [address] [place] [address] Dr. Doreen Betancourt Bilirubin [Mass/Vol] 0.3 mg/dL Normal 0.2-1.0 [facility] Comment on above: Performed By: #### C BC #### [facility] [address] [place] [address] Dr. Doreen Betancourt Calcium [Mass/Vol] 9.3 mg/dL Normal 8.5-10.1 [facility] Comment on above: Performed By: #### C BC #### [facility] [address] [place] [address] Dr. Doreen Betancourt Chloride [Moles/Vol] 104 mmol/L Normal 98-107 [facility] Comment on above: Performed By: #### C BC #### [facility] [address] [place] [address] Dr. Doreen Betancourt CO2 [Moles/Vol] 29.4 mmol/L Normal 21.0-32.0 [facility] Comment on above: Performed By: #### C BC #### [facility] [address] [place] [address] Dr. Doreen Betancourt Creatinine [Mass/Vol] 0.67 mg/dL Normal 0.55-1.02 [facility] Comment on above: Performed By: #### C BC #### [facility] [address] [place] [address] Dr. Doreen Betancourt EGFR-AF [place] >60 Normal >=60 [facility] Comment on above: Performed By: #### C BC #### [facility] [address] [place] [address] Dr. Doreen Betancourt EGFR-NON AF [place] >60 Normal >=60 [facility] Comment on above: Performed By: #### C BC #### [facility] [address] [place] [address] Dr. Doreen Betancourt Globulin (S) [Mass/Vol] 3.5 g/dL Normal [facility] Comment on above: Performed By: #### C BC #### [facility] [address] [address] [address] Doreen Betancourt Glucose [Mass/Vol] 100 mg/dL Normal 74-106 [facility] Comment on above: Performed By: #### C BC #### [facility] [address] [address] [address] Doreen Betancourt Potassium [Moles/Vol] 4.7 mmol/L Normal 3.5-5.1 [facility] Comment on above: Performed By: #### C BC #### [facility] [address] [address] [address] Doreen Betancourt Protein [Mass/Vol] 7.0 g/dL Normal 6.4-8.2 [facility] Comment on above: Performed By: #### C BC #### [facility] [address] [place] [address] Dr. Doreen Betancourt Sodium [Moles/Vol] 141 mmol/L Normal 136-145 [facility] Comment on above: Performed By: #### C BC #### [facility] [address] [place] [address] Dr. Doreen Betancourt Urea nitrogen [Mass/Vol] 13.0 mg/dL Normal 7.0-18.0 [facility] Comment on above: Performed By: #### C BC #### [facility] [address] [place] [address] Dr. Doreen Betancourt Urea nitrogen/Creatinine [Mass ratio] 19.4 mg/mg Normal [facility] Comment on above: Performed By: #### C BC #### [facility] [address] [place] [address] Dr. Doreen Betancourt CBC AUTO DIFFon 08-03-2022 BASO # 0.0 103/ul Normal 0.0-0.1 [facility] Comment on above: Performed By: #### M G, CMP #### [facility] [address] [place] [address] Dr. Doreen Betancourt Basophils/100 WBC (Bld) 0.6 % Normal 0.2-2.0 [facility] Comment on above: Performed By: #### M G, CMP #### [facility] [address] [place] [address] Dr. Doreen Betancourt EO # 0.0 103/ul Normal 0.0-0.7 [facility] Comment on above: Performed By: #### M G, CMP #### [facility] [address] [place] [address] Dr. Doreen Betancourt Eosinophils/100 WBC (Bld) 0.6 % Critically low 0.9-7.0 [facility] Comment on above: Performed By: #### M G, CMP #### [facility] [address] [place] [address] Dr. Doreen Betancourt Erythrocyte distribution width (RBC) [Ratio] 17.8 % Critically high 11.0-15.0 [facility] Comment on above: Performed By: #### M G, CMP #### [facility] [address] [place] [address] Dr. Doreen Betancourt Hematocrit (Bld) [Volume fraction] 36.1 % Normal 36.0-48.0 [facility] Comment on above: Performed By: #### M G, CMP #### [facility] [address] [place] [address] Dr. Doreen Betancourt Hemoglobin (Bld) [Mass/Vol] 12.6 g/dL Normal 12.0-16.0 [facility] Comment on above: Performed By: #### M G, CMP #### [facility] [address] [place] [address] Dr. Doreen Betancourt IG # 0.01 10e3/ul Normal 0.00-0.03 [facility] Comment on above: Performed By: #### M G, CMP #### [facility] [address] [place] [address] Dr. Doreen Betancourt IG % 0.3 % Normal 0.0-0.5 [facility] Comment on above: Performed By: #### M G, CMP #### [facility] [address] [place] [address] Dr. Doreen Betancourt LYMPH # 1.6 103/ul Normal 1.2-3.8 [facility] Comment on above: Performed By: #### M G, CMP #### [facility] [address] [place] [address] Dr. Doreen Betancourt Lymphocytes/100 WBC (Bld) 46.4 % Normal 20.5-60.0 [facility] Comment on above: Performed By: #### M G, CMP #### [facility] [address] [place] [address] Dr. Doreen Betancourt MANUAL DIFF REQ NO Normal [facility] Comment on above: Performed By: #### M G, CMP #### [facility] [address] [place] [address] Dr. Doreen Betancourt MCH (RBC) [Entitic mass] 32.1 pg Normal 26.7-34.0 [facility] Comment on above: Performed By: #### M G, CMP #### [facility] [address] [place] [address] Dr. Doreen Betancourt MCHC (RBC) [Mass/Vol] 34.9 g/dL Normal 29.9-35.2 [facility] Comment on above: Performed By: #### M G, CMP #### [facility] [address] [place] [address] Dr. Doreen Betancourt MCV (RBC) [Entitic vol] 91.9 fL Normal 81.0-99.0 [facility] Comment on above: Performed By: #### M G, CMP #### [facility] [address] [place] [address] Dr. Doreen Betancourt MONO # 0.3 103/ul Normal 0.3-0.8 [facility] Comment on above: Performed By: #### M G, CMP #### [facility] [address] [place] [address] Dr. Doreen Betancourt Monocytes/100 WBC (Bld) 9.7 % Normal 1.7-12.0 [facility] Comment on above: Performed By: #### M G, CMP #### [facility] [address] [place] [address] Dr. Doreen Betancourt NEUT # 1.5 103/ul Normal 1.4-6.5 [facility] Comment on above: Performed By: #### M G, CMP #### [facility] [address] [address] [address] Doreen Betancourt Neutrophils/100 WBC (Bld) 42.4 % Critically low 43.0-75.0 [facility] Comment on above: Performed By: #### M G, CMP #### [facility] [address] [place] [address] Dr. Doreen Betancourt Platelet mean volume (Bld) [Entitic vol] 11.1 fL Normal 9.5-13.5 [facility] Comment on above: Performed By: #### M G, CMP #### [facility] [address] [place] [address] Dr. Doreen Betancourt PLT 101 103/ul Critically low 150-450 [facility] Comment on above: Performed By: #### M G, CMP #### [facility] [address] [place] [address] Dr. Doreen Betancourt RBC 3.93 106/ul Critically low 4.20-5.40 [facility] Comment on above: Performed By: #### M G, CMP #### [facility] [address] [place] [address] Dr. Doreen Betancourt WBC 3.5 103/ul Critically low 4.0-11.0 [facility] Comment on above: Performed By: #### M G, CMP #### [facility] [address] [place] [address] Dr. Doreen Betancourt MAGNESIUMon 08-03-2022 Magnesium [Mass/Vol] 2.0 mg/dL Normal 1.8-2.4 [facility] Comment on above: Performed By: #### C MP, MG #### [facility] [address] [place] [address] Dr. Doreen Betancourt PROF 14(COMP METB)on 023 Albumin [Mass/Vol] 3.6 g/dL Normal 3.4-5.0 [facility] Comment on above: Performed By: #### C MP, MG #### [facility] [address] [place] [address] Dr. Doreen Betancourt Albumin/Globulin [Mass ratio] 1.0 {ratio} Normal [facility] Comment on above: Performed By: #### C MP, MG #### [facility] [address] [address] [address] Doreen Betancourt ALP [Catalytic activity/Vol] 120 U/L Critically high 46-116 [facility] Comment on above: Performed By: #### C MP, MG #### [facility] [address] [address] [address] Doreen Betancourt ALT [Catalytic activity/Vol] 80 U/L Critically high 14-59 [facility] Comment on above: Performed By: #### C MP, MG #### [facility] [address] [place] [address] Dr. Doreen Betancourt Anion gap [Moles/Vol] 10.7 mmol/L Normal [facility] Comment on above: Performed By: #### C MP, MG #### [facility] [address] [place] [address] Dr. Doreen Betancourt AST [Catalytic activity/Vol] 62 U/L Critically high 15-37 [facility] Comment on above: Performed By: #### C MP, MG #### [facility] [address] [place] [address] Dr. Doreen Betancourt Bilirubin [Mass/Vol] 0.4 mg/dL Normal 0.2-1.0 [facility] Comment on above: Performed By: #### C MP, MG #### [facility] [address] [place] [address] Dr. Doreen Betancourt Calcium [Mass/Vol] 9.6 mg/dL Normal 8.5-10.1 [facility] Comment on above: Performed By: #### C MP, MG #### [facility] [address] [place] [address] Dr. Doreen Betancourt Chloride [Moles/Vol] 106 mmol/L Normal 98-107 [facility] Comment on above: Performed By: #### C MP, MG #### [facility] [address] [place] [address] Dr. Doreen Betancourt CO2 [Moles/Vol] 29.5 mmol/L Normal 21.0-32.0 [facility] Comment on above: Performed By: #### C MP, MG #### [facility] [address] [place] [address] Dr. Doreen Betancourt Creatinine [Mass/Vol] 0.67 mg/dL Normal 0.55-1.02 [facility] Comment on above: Performed By: #### C MP, MG #### [facility] [address] [place] [address] Dr. Doreen Betancourt EGFR-AF [place] >60 Normal >=60 [facility] Comment on above: Performed By: #### C MP, MG #### [facility] [address] [place] [address] Dr. Doreen Betancourt EGFR-NON AF [place] >60 Normal >=60 [facility] Comment on above: Performed By: #### C MP, MG #### [facility] [address] [place] [address] Dr. Doreen Betancourt Globulin (S) [Mass/Vol] 3.5 g/dL Normal [facility] Comment on above: Performed By: #### C MP, MG #### [facility] [address] [place] [address] Dr. Doreen Betancourt Glucose [Mass/Vol] 128 mg/dL Critically high 74-106 [facility] Comment on above: Performed By: #### C MP, MG #### [facility] [address] [place] [address] Dr. Doreen Betancourt Potassium [Moles/Vol] 4.2 mmol/L Normal 3.5-5.1 [facility] Comment on above: Performed By: #### C MP, MG #### [facility] [address] [place] [address] Dr. Doreen Betancourt Protein [Mass/Vol] 7.1 g/dL Normal 6.4-8.2 [facility] Comment on above: Performed By: #### C MP, MG #### [facility] [address] [place] [address] Dr. Doreen Betancourt Sodium [Moles/Vol] 142 mmol/L Normal 136-145 [facility] Comment on above: Performed By: #### C MP, MG #### [facility] [address] [place] [address] Dr. Doreen Betancourt Urea nitrogen [Mass/Vol] 12.0 mg/dL Normal 7.0-18.0 [facility] Comment on above: Performed By: #### C MP, MG #### [facility] [address] [place] [address] Dr. Doreen Betancourt Urea nitrogen/Creatinine [Mass ratio] 17.9 mg/mg Normal [facility] Comment on above: Performed By: #### C MP, MG #### [facility] [address] [place] [address] Dr. Doreen Betancourt CEAon 07-21-2022 CEA 8.1 ng/mL Critically high 0.0-4.7 [facility] Comment on above: Result Comment: Nons mokers <3.9 Smokers <5.6 . [employer] Electrochemiluminescence Immunoassay (ECLIA) . Values obtained with different assay methods or kits cannot be used interchangeably. Results cannot be interpreted as absolute evidence of the presence or absence of malignant disease. Performed By: #### C VDTBH #### [facility] [address] [place] [address] Dr. Doreen Betancourt CBC AUTO DIFFon 07-20-2022 BASO # 0.0 103/ul Normal 0.0-0.1 [facility] Comment on above: Performed By: #### C VDTBH #### [facility] [address] [place] [address] Dr. Doreen Betancourt Basophils/100 WBC (Bld) 0.9 % Normal 0.2-2.0 [facility] Comment on above: Performed By: #### C VDTBH #### [facility] [address] [place] [address] Dr. Doreen Betancourt EO # 0.0 103/ul Normal 0.0-0.7 [facility] Comment on above: Performed By: #### C VDTBH #### [facility] [address] [place] [address] Dr. Doreen Betancourt Eosinophils/100 WBC (Bld) 0.6 % Critically low 0.9-7.0 [facility] Comment on above: Performed By: #### C VDTBH #### [facility] [address] [place] [address] Dr. Doreen Betancourt Erythrocyte distribution width (RBC) [Ratio] 17.2 % Critically high 11.0-15.0 [facility] Comment on above: Performed By: #### C VDTBH #### [facility] [address] [place] [address] Dr. Doreen Betancourt Hematocrit (Bld) [Volume fraction] 39.1 % Normal 36.0-48.0 [facility] Comment on above: Performed By: #### C VDTBH #### [facility] [address] [place] [address] Dr. Doreen Betancourt Hemoglobin (Bld) [Mass/Vol] 13.0 g/dL Normal 12.0-16.0 [facility] Comment on above: Performed By: #### C VDTBH #### [facility] [address] [place] [address] Dr. Doreen Betancourt IG # 0.00 10e3/ul Normal 0.00-0.03 [facility] Comment on above: Performed By: #### C VDTBH #### [facility] [address] [place] [address] Dr. Doreen Betancourt IG % 0.0 % Normal 0.0-0.5 [facility] Comment on above: Performed By: #### C VDTBH #### [facility] [address] [place] [address] Dr. Doreen Betancourt LYMPH # 2.0 103/ul Normal 1.2-3.8 [facility] Comment on above: Performed By: #### C VDTBH #### [facility] [address] [place] [address] Dr. Doreen Betancourt Lymphocytes/100 WBC (Bld) 42.1 % Normal 20.5-60.0 [facility] Comment on above: Performed By: #### C VDTBH #### [facility] [address] [place] [address] Dr. Doreen Betancourt MANUAL DIFF REQ NO Normal [facility] Comment on above: Performed By: #### C VDTBH #### [facility] [address] [place] [address] Dr. Doreen Betancourt MCH (RBC) [Entitic mass] 31.1 pg Normal 26.7-34.0 [facility] Comment on above: Performed By: #### C VDTBH #### [facility] [address] [place] [address] Dr. Doreen Betancourt MCHC (RBC) [Mass/Vol] 33.2 g/dL Normal 29.9-35.2 [facility] Comment on above: Performed By: #### C VDTBH #### [facility] [address] [place] [address] Dr. Doreen Betancourt MCV (RBC) [Entitic vol] 93.5 fL Normal 81.0-99.0 [facility] Comment on above: Performed By: #### C VDTBH #### [facility] [address] [place] [address] Dr. Doreen Betancourt MONO # 0.6 103/ul Normal 0.3-0.8 [facility] Comment on above: Performed By: #### C VDTBH #### [facility] [address] [place] [address] Dr. Doreen Betancourt Monocytes/100 WBC (Bld) 13.5 % Critically high 1.7-12.0 [facility] Comment on above: Performed By: #### C VDTBH #### [facility] [address] [place] [address] Dr. Doreen Betancourt NEUT # 2.0 103/ul Normal 1.4-6.5 [facility] Comment on above: Performed By: #### C VDTBH #### [facility] [address] [place] [address] Dr. Doreen Betancourt Neutrophils/100 WBC (Bld) 42.9 % Critically low 43.0-75.0 [facility] Comment on above: Performed By: #### C VDTBH #### [facility] [address] [address] [address] Doreen Betancourt Platelet mean volume (Bld) [Entitic vol] 10.2 fL Normal 9.5-13.5 [facility] Comment on above: Performed By: #### C VDTBH #### [facility] [address] [place] [address] Dr. Doreen Betancourt PLT 143 103/ul Critically low 150-450 [facility] Comment on above: Performed By: #### C VDTBH #### [facility] [address] [place] [address] Dr. Doreen Betancourt RBC 4.18 106/ul Critically low 4.20-5.40 [facility] Comment on above: Performed By: #### C VDTBH #### [facility] [address] [place] [address] Dr. Doreen Betancourt WBC 4.7 103/ul Normal 4.0-11.0 [facility] Comment on above: Performed By: #### C VDTBH #### [facility] [address] [place] [address] Dr. Doreen Betancourt MAGNESIUMon 07-20-2022 Magnesium [Mass/Vol] 2.2 mg/dL Normal 1.8-2.4 [facility] Comment on above: Performed By: #### M G, CMP #### [facility] [address] [place] [address] Dr. Doreen Betancourt PROF 14(COMP METB)on 023 Albumin [Mass/Vol] 3.8 g/dL Normal 3.4-5.0 [facility] Comment on above: Performed By: #### C BC #### [facility] [address] [place] [address] Dr. Doreen Betancourt Albumin/Globulin [Mass ratio] 1.0 {ratio} Normal [facility] Comment on above: Performed By: #### C BC #### [facility] [address] [place] [address] Dr. Doreen Betancourt ALP [Catalytic activity/Vol] 118 U/L Critically high 46-116 [facility] Comment on above: Performed By: #### C BC #### [facility] [address] [address] [address] Doreen Betancourt ALT [Catalytic activity/Vol] 57 U/L Normal 14-59 [facility] Comment on above: Performed By: #### C BC #### [facility] [address] [address] [address] Doreen Betancourt Anion gap [Moles/Vol] 13.4 mmol/L Normal [facility] Comment on above: Performed By: #### C BC #### [facility] [address] [address] [address] Doreen Betancourt AST [Catalytic activity/Vol] 40 U/L Critically high 15-37 [facility] Comment on above: Performed By: #### C BC #### [facility] [address] [place] [address] Dr. Doreen Betancourt Bilirubin [Mass/Vol] 0.4 mg/dL Normal 0.2-1.0 [facility] Comment on above: Performed By: #### C BC #### [facility] [address] [place] [address] Dr. Doreen Betancourt Calcium [Mass/Vol] 9.7 mg/dL Normal 8.5-10.1 [facility] Comment on above: Performed By: #### C BC #### [facility] [address] [place] [address] Dr. Doreen Betancourt Chloride [Moles/Vol] 103 mmol/L Normal 98-107 [facility] Comment on above: Performed By: #### C BC #### [facility] [address] [place] [address] Dr. Doreen Betancourt CO2 [Moles/Vol] 29.1 mmol/L Normal 21.0-32.0 [facility] Comment on above: Performed By: #### C BC #### [facility] [address] [place] [address] Dr. Doreen Betancourt Creatinine [Mass/Vol] 0.71 mg/dL Normal 0.55-1.02 [facility] Comment on above: Performed By: #### C BC #### [facility] [address] [place] [address] Dr. Doreen Betancourt EGFR-AF [place]I >60 Normal >=60 [facility] Comment on above: Performed By: #### C BC #### [facility] [address] [place] [address] Dr. Doreen Betancourt EGFR-NON AF [place] >60 Normal >=60 [facility] Comment on above: Performed By: #### C BC #### [facility] [address] [address] [address] Doreen Betancourt Globulin (S) [Mass/Vol] 3.7 g/dL Normal [facility] Comment on above: Performed By: #### C BC #### [facility] [address] [place] [address] Dr. Doreen Betancourt Glucose [Mass/Vol] 106 mg/dL Normal 74-106 [facility] Comment on above: Performed By: #### C BC #### [facility] [address] [place] [address] Dr. Doreen Betancourt Potassium [Moles/Vol] 4.5 mmol/L Normal 3.5-5.1 [facility] Comment on above: Performed By: #### C BC #### [facility] [address] [place] [address] Dr. Doreen Betancourt Protein [Mass/Vol] 7.5 g/dL Normal 6.4-8.2 [facility] Comment on above: Performed By: #### C BC #### [facility] [address] [place] [address] Dr. Doreen Betancourt Sodium [Moles/Vol] 141 mmol/L Normal 136-145 [facility] Comment on above: Performed By: #### C BC #### [facility] [address] [place] [address] Dr. Doreen Betancourt Urea nitrogen [Mass/Vol] 15.0 mg/dL Normal 7.0-18.0 [facility] Comment on above: Performed By: #### C BC #### [facility] [address] [place] [address] Dr. Doreen Betancourt Urea nitrogen/Creatinine [Mass ratio] 21.1 mg/mg Normal [facility] Comment on above: Performed By: #### C #### [facility] [address] [place] [address] Dr. Doreen Betancourt Albumin [Mass/volume] in Ser um or PlasmaOrdered By: Isaías Jordan on 07-11-2022 Albumin [Mass/Vol] 3.8 g/dL 3.2-5.5 [facility] Creatinine and Glomerular fi ltration rate.predicted panel (S/P/Bld)Ordered By: Isaías Jordan on 07-11-2022 Creatinine [Mass/Vol] 0.64 mg/dL 0.44-1.03 [facility] Estimated glomerular filtrat ion rate (GFR) non- AmericanOrdered By: Isaías Jordan on 07-11-2022 GFR/1.73 sq M.predicted among non-blacks MDRD (S/P/Bld) [Vol rate/Area] > 60 mL/Min [facility] Globulin Calc (S) [Mass/Vol] Ordered By: Isaías Jordan on 07-11-2022 Globulin (S) [Mass/Vol] 2.8 g/dL [facility] - Chemistry and C hemistry - challengeOrdered By: Isaías Jordan on 07-11-2022 Magnesium [Mass/Vol] 2.2 mg/dL 1.6-2.6 [facility] No Panel InformationOrdered By: Isaías Jordan on 07-11-2022 Estimated GFR () > 60 mL/Min [facility] Comment on above: GFR estimated refere nce range: According to KDOQI guidelines, <60 ml/min/1.73m2 is sufficient to diagnose a patient with chronic kidney disease. Pharmacy Creatinine Clearance (Chem 97.34 [facility] Protein [Mass/volume] in Ser um or PlasmaOrdered By: Isaías Jordan on 07-11-2022 Protein [Mass/Vol] 6.6 g/dL 6.1-7.9 [facility] Serum or plasma alanine villalpando otransferase measurement without P-5'-P (enzymatic activiOrdered By: Isaías Jordan on 07-11-2022 ALT No additional P-5'-P [Catalytic activity/Vol] 71 U/L 10-60 [facility] Serum or plasma albumin/glob ulin mass ratioOrdered By: Isaías Jordan on 07-11-2022 Albumin/Globulin [Mass ratio] 1.4 {ratio} [facility] Serum or plasma alkaline joselito sphatase measurement (enzymatic activity/volume)Ordered By: Isaías Jordan on 07-11-2022 ALP [Catalytic activity/Vol] 72 U/L 32-92 [facility] Serum or plasma anion gap de terminationOrdered By: Isaías Jordan on 07-11-2022 Anion gap [Moles/Vol] 9.7 mmol/L 6.0-15.0 [facility] Serum or plasma aspartate am inotransferase measurement (enzymatic activity/volume)Ordered By: Isaías Jordan on 07-11-2022 AST [Catalytic activity/Vol] 56 U/L 10-42 [facility] Serum or plasma calcium idalmis urement (mass/volume)Ordered By: Isaías Jordan on 07-11-2022 Calcium [Mass/Vol] 9.1 mg/dL 8.2-10.2 [facility] Serum or plasma chloride jose surement (moles/volume)Ordered By: Isaías Jordan on 07-11-2022 Chloride [Moles/Vol] 103 mmol/L 95-114 [facility] Serum or plasma glucose idalmis urement (mass/volume)Ordered By: Isaías Jordan on 07-11-2022 Glucose [Mass/Vol] 81 mg/dL 70-100 [facility] Comment on above: ADA recommended refe rence rangeRandom Glucose Reference Range is dependent on time and content of last meal. Glucose of more than 200 mg/dL in a nonstressed, ambulatory subject supports the diagnosis of Diabetes Mellitus. Serum or plasma potassium me asurement (moles/volume)Ordered By: Isaías Jordan on 07-11-2022 Potassium [Moles/Vol] 4.1 mmol/L 3.5-5.1 [facility] Serum or plasma sodium measu rement (moles/volume)Ordered By: Isaías Jordan on 07-11-2022 Sodium [Moles/Vol] 134 mmol/L 136-146 [facility] Serum or plasma total biliru bin measurement (mass/volume)Ordered By: Isaías Jordan on 07-11-2022 Bilirubin [Mass/Vol] 0.8 mg/dL 0.3-1.2 [facility] Serum or plasma total carbon dioxide measurement (moles/volume)Ordered By: Isaías Jordan on 07-11-2022 CO2 [Moles/Vol] 25.4 mmol/L 22.0-30.0 [facility] Serum or plasma urea nitroge n measurement (mass/volume)Ordered By: Isaías Jordan on 07-11-2022 Urea nitrogen [Mass/Vol] 14 mg/dL 03-29 [facility] Albumin [Mass/volume] in Ser um or PlasmaOrdered By: Isaías Jordan on 07-06-2022 Albumin [Mass/Vol] 4.2 g/dL 3.2-5.5 [facility] CBC AUTO DIFFon 07-06-2022 BASO # 0.0 103/ul Normal 0.0-0.1 [facility] Comment on above: Performed By: #### M G, CMP #### [facility] [address] [place] [address] Dr. Doreen Betancourt Basophils/100 WBC (Bld) 0.7 % Normal 0.2-2.0 [facility] Comment on above: Performed By: #### M G, CMP #### [facility] [address] [address] [address] Doreen Betancourt EO # 0.1 103/ul Normal 0.0-0.7 [facility] Comment on above: Performed By: #### M G, CMP #### [facility] [address] [address] [address] Doreen Betancourt Eosinophils/100 WBC (Bld) 1.1 % Normal 0.9-7.0 [facility] Comment on above: Performed By: #### M G, CMP #### [facility] [address] [address] [address] Doreen Betancourt Erythrocyte distribution width (RBC) [Ratio] 16.9 % Critically high 11.0-15.0 [facility] Comment on above: Performed By: #### M G, CMP #### [facility] [address] [place] [address] Dr. Doreen Betancourt Hematocrit (Bld) [Volume fraction] 38.9 % Normal 36.0-48.0 [facility] Comment on above: Performed By: #### M G, CMP #### [facility] [address] [place] [address] Dr. Doreen Betancourt Hemoglobin (Bld) [Mass/Vol] 14.2 g/dL Normal 12.0-16.0 [facility] Comment on above: Performed By: #### M Salena, CMP #### [facility] [address] [place] [address] Dr. Doreen Betancourt IG # 0.01 10e3/ul Normal 0.00-0.03 [facility] Comment on above: Performed By: #### Gay Salena, CMP #### [facility] [address] [place] [address] Dr. Doreen Betancourt IG % 0.2 % Normal 0.0-0.5 [facility] Comment on above: Performed By: #### Gay Martino, CMP #### [facility] [address] [place] [address] Dr. Doreen Betancourt LYMPH # 2.0 103/ul Normal 1.2-3.8 [facility] Comment on above: Performed By: #### Gay Salena, CMP #### [facility] [address] [place] [address] Dr. Doreen Betancourt Lymphocytes/100 WBC (Bld) 43.2 % Normal 20.5-60.0 [facility] Comment on above: Performed By: #### M G, CMP #### [facility] [address] [place] [address] Dr. Doreen Betancourt MANUAL DIFF REQ NO Normal [facility] Comment on above: Performed By: #### M G, CMP #### [facility] [address] [place] [address] Dr. Doreen Betancourt MCH (RBC) [Entitic mass] 34.5 pg Critically high 26.7-34.0 [facility] Comment on above: Performed By: #### M G, CMP #### [facility] [address] [place] [address] Dr. Doreen Betancourt MCHC (RBC) [Mass/Vol] 36.5 g/dL Critically high 29.9-35.2 [facility] Comment on above: Performed By: #### M G, CMP #### [facility] [address] [place] [address] Dr. Doreen Betancourt MCV (RBC) [Entitic vol] 94.6 fL Normal 81.0-99.0 [facility] Comment on above: Performed By: #### M G, CMP #### [facility] [address] [place] [address] Dr. Doreen Betancourt MONO # 0.4 103/ul Normal 0.3-0.8 [facility] Comment on above: Performed By: #### M G, CMP #### [facility] [address] [place] [address] Dr. Doreen Betancourt Monocytes/100 WBC (Bld) 9.6 % Normal 1.7-12.0 [facility] Comment on above: Performed By: #### M G, CMP #### [facility] [address] [place] [address] Dr. Doreen Betancourt NEUT # 2.1 103/ul Normal 1.4-6.5 [facility] Comment on above: Performed By: #### M G, CMP #### [facility] [address] [place] [address] Dr. Doreen Betancourt Neutrophils/100 WBC (Bld) 45.2 % Normal 43.0-75.0 [facility] Comment on above: Performed By: #### M G, CMP #### [facility] [address] [place] [address] Dr. Doreen Betancourt Platelet mean volume (Bld) [Entitic vol] 9.8 fL Normal 9.5-13.5 [facility] Comment on above: Performed By: #### M G, CMP #### [facility] [address] [address] [address] Doreen Betancourt PLT 155 103/ul Normal 150-450 [facility] Comment on above: Performed By: #### M G, CMP #### [facility] [address] [address] [address] Doreen Betancourt RBC 4.11 106/ul Critically low 4.20-5.40 [facility] Comment on above: Performed By: #### M G, CMP #### [facility] [address] [address] [address] Doreen Betancourt WBC 4.6 103/ul Normal 4.0-11.0 [facility] Comment on above: Performed By: #### M G, CMP #### [facility] [address] [address] [address] Doreen Betancourt Creatinine and Glomerular fi ltration rate.predicted panel (S/P/Bld)Ordered By: Isaías Jordan on 07-06-2022 Creatinine [Mass/Vol] 0.43 mg/dL 0.44-1.03 [facility] Estimated glomerular filtrat ion rate (GFR) non- AmericanOrdered By: Isaías Jordan on 07-06-2022 GFR/1.73 sq M.predicted among non-blacks MDRD (S/P/Bld) [Vol rate/Area] > 60 mL/Min [facility] Globulin Calc (S) [Mass/Vol] Ordered By: Isaías Jordan on 07-06-2022 Globulin (S) [Mass/Vol] 2.6 g/dL [facility] - Chemistry and C hemistry - challengeOrdered By: Isaías Jordan on 07-06-2022 Magnesium [Mass/Vol] 2.8 mg/dL 1.6-2.6 [facility] MAGNESIUMon 07-06-2022 Magnesium [Mass/Vol] 2.0 mg/dL Normal 1.8-2.4 [facility] Comment on above: Performed By: #### C BC #### [facility] [address] [address] [address] Doreen Betancourt No Panel InformationOrdered By: Isaías Jordan on 07-06-2022 Estimated GFR () > 60 mL/Min [facility] Comment on above: GFR estimated refere nce range: According to KDOQI guidelines, <60 ml/min/1.73m2 is sufficient to diagnose a patient with chronic kidney disease. Pharmacy Creatinine Clearance (Chem N/A [facility] PROF 14(COMP METB)on 022 Albumin [Mass/Vol] 4.2 g/dL Normal 3.4-5.0 [facility] Comment on above: Result Comment: pref [place] [facility]; ultrafuged specimen Performed By: #### C BC #### [facility] [address] [place] [address] Dr. Doreen Betancourt Albumin/Globulin [Mass ratio] 1.6 {ratio} Normal [facility] Comment on above: Performed By: #### C BC #### [facility] [address] [place] [address] Dr. Doreen Betancourt ALP [Catalytic activity/Vol] 102 U/L Normal 46-116 [facility] Comment on above: Result Comment: pref ormed at [facility]; ultrafuged specimen Performed By: #### C BC #### [facility] [address] [address] [address] Doreen Betancourt ALT [Catalytic activity/Vol] 38 U/L Normal 14-59 [facility] Comment on above: Result Comment: pref ormed [place] [facility]; ultrafuged specimen Performed By: #### C BC #### [facility] [address] [address] [address] Doreen Betancourt Anion gap [Moles/Vol] 11.9 mmol/L Normal [facility] Comment on above: Performed By: #### C BC #### [facility] [address] [address] [address] Doreen Betancourt AST [Catalytic activity/Vol] 49 U/L Critically high 15-37 [facility] Comment on above: Result Comment: pref ormed at [facility]; ultrafuged specimen Performed By: #### C BC #### [facility] [address] [place] [address] Dr. Doreen Betancourt Bilirubin [Mass/Vol] 0.7 mg/dL Normal 0.2-1.0 [facility] Comment on above: Result Comment: pref ormed at [facility]; ultrafuged specimen Performed By: #### C BC #### [facility] [address] [place] [address] Dr. Doreen Betancourt Calcium [Mass/Vol] 9.5 mg/dL Normal 8.5-10.1 [facility] Comment on above: Result Comment: pref ormed at [facility]; ultrafuged specimen Performed By: #### C BC #### [facility] [address] [address] [address] Doreen Betancourt Chloride [Moles/Vol] 101 mmol/L Normal 98-107 [facility] Comment on above: Result Comment: pref ormed at [facility]; ultrafuged specimen Performed By: #### C BC #### [facility] [address] [place] [address] Dr. Doreen Betancourt CO2 [Moles/Vol] 25.4 mmol/L Normal 21.0-32.0 [facility] Comment on above: Result Comment: pref ormed at [facility]; ultrafuged specimen Performed By: #### C BC #### [facility] [address] [place] [address] Dr. Doreen Betancourt Creatinine [Mass/Vol] 0.43 mg/dL Critically low 0.55-1.02 [facility] Comment on above: Result Comment: pref ormed at [facility]; ultrafuged specimen Performed By: #### C BC #### [facility] [address] [place] [address] Dr. Doreen Betancourt EGFR-AF [place]I >60 Normal >=60 [facility] Comment on above: Performed By: #### C BC #### [facility] [address] [place] [address] Dr. Doreen Betancourt EGFR-NON AF [place] >60 Normal >=60 [facility] Comment on above: Performed By: #### C BC #### [facility] [address] [place] [address] Dr. Doreen Betancourt Globulin (S) [Mass/Vol] 2.6 g/dL Normal [facility] Comment on above: Performed By: #### C BC #### [facility] [address] [address] [address] Doreen Betancourt Glucose [Mass/Vol] 102 mg/dL Normal 74-106 [facility] Comment on above: Result Comment: pref ormed at [facility]; ultrafuged specimen Performed By: #### C BC #### [facility] [address] [place] [address] Dr. Doreen Betancourt Potassium [Moles/Vol] 5.3 mmol/L Critically high 3.5-5.1 [facility] Comment on above: Result Comment: pref ormed at [facility]; ultrafuged specimen Performed By: #### C BC #### [facility] [address] [place] [address] Dr. Doreen Betancourt Protein [Mass/Vol] 6.8 g/dL Normal 6.4-8.2 [facility] Comment on above: Result Comment: pref ormed at [facility]; ultrafuged specimen Performed By: #### C BC #### [facility] [address] [place] [address] Dr. Doreen Betancourt Sodium [Moles/Vol] 133 mmol/L Critically low 136-145 [facility] Comment on above: Result Comment: pref ormed at [facility]; ultrafuged specimen Performed By: #### C BC #### [facility] [address] [place] [address] Dr. Doreen Betancourt Urea nitrogen [Mass/Vol] 18.0 mg/dL Normal 7.0-18.0 [facility] Comment on above: Result Comment: pref [place] [facility] [place]ed specimen Performed By: #### C BC #### [facility] [address] [place] [address] Dr. Doreen Betancourt Urea nitrogen/Creatinine [Mass ratio] 41.6 mg/mg Normal [facility] Comment on above: Performed By: #### C BC #### [facility] [address] [place] [address] Dr. Doreen Betancourt Protein [Mass/volume] in Ser um or PlasmaOrdered By: Isaías Jordan on 07-06-2022 Protein [Mass/Vol] 6.8 g/dL 6.1-7.9 [facility] Serum or plasma alanine villalpando otransferase measurement without P-5'-P (enzymatic activiOrdered By: Isaías Jordan on 07-06-2022 ALT No additional P-5'-P [Catalytic activity/Vol] 38 U/L 10-60 [facility] Serum or plasma albumin/glob ulin mass ratioOrdered By: Isaías Jordan on 07-06-2022 Albumin/Globulin [Mass ratio] 1.6 {ratio} [facility] Serum or plasma alkaline joselito sphatase measurement (enzymatic activity/volume)Ordered By: Isaías Jordan on 07-06-2022 ALP [Catalytic activity/Vol] 102 U/L 32-92 [facility] Serum or plasma anion gap de terminationOrdered By: Isaías Jordan on 07-06-2022 Anion gap [Moles/Vol] 11.9 mmol/L 6.0-15.0 [facility] Serum or plasma aspartate am inotransferase measurement (enzymatic activity/volume)Ordered By: Isaías Jordan on 07-06-2022 AST [Catalytic activity/Vol] 49 U/L 10-42 [facility] Serum or plasma calcium idalmis urement (mass/volume)Ordered By: Isaías Jordan on 07-06-2022 Calcium [Mass/Vol] 9.5 mg/dL 8.2-10.2 [facility] Serum or plasma chloride jose surement (moles/volume)Ordered By: Isaías Jordan on 07-06-2022 Chloride [Moles/Vol] 101 mmol/L 95-114 [facility] Serum or plasma glucose idalmis urement (mass/volume)Ordered By: Isaías Jordan on 07-06-2022 Glucose [Mass/Vol] 102 mg/dL 70-100 [facility] Comment on above: ADA recommended refe rence rangeRandom Glucose Reference Range is dependent on time and content of last meal. Glucose of more than 200 mg/dL in a nonstressed, ambulatory subject supports the diagnosis of Diabetes Mellitus. Serum or plasma potassium me asurement (moles/volume)Ordered By: Isaías Jordan on 07-06-2022 Potassium [Moles/Vol] 5.3 mmol/L 3.5-5.1 [facility] Serum or plasma sodium measu rement (moles/volume)Ordered By: Isaías Jordan on 07-06-2022 Sodium [Moles/Vol] 133 mmol/L 136-146 [facility] Serum or plasma total biliru bin measurement (mass/volume)Ordered By: Isaías Jordan on 07-06-2022 Bilirubin [Mass/Vol] 0.7 mg/dL 0.3-1.2 [facility] Serum or plasma total carbon dioxide measurement (moles/volume)Ordered By: Isaías Jordan on 07-06-2022 CO2 [Moles/Vol] 25.4 mmol/L 22.0-30.0 [facility] Serum or plasma urea nitroge n measurement (mass/volume)Ordered By: Isíaas Jordan on 07-06-2022 Urea nitrogen [Mass/Vol] 18 mg/dL 03-29 [facility] CBC AUTO DIFFon 06-22-2022 BASO # 0.0 103/ul Normal 0.0-0.1 [facility] Comment on above: Performed By: #### C BC #### [facility] [address] [place] [address] Dr. Doreen Betancourt Basophils/100 WBC (Bld) 0.5 % Normal 0.2-2.0 [facility] Comment on above: Performed By: #### C BC #### [facility] [address] [address] [address] Doreen Betancourt EO # 0.1 103/ul Normal 0.0-0.7 [facility] Comment on above: Performed By: #### C BC #### [facility] [address] [address] [address] Doreen Betancourt Eosinophils/100 WBC (Bld) 1.3 % Normal 0.9-7.0 [facility] Comment on above: Performed By: #### C BC #### [facility] [address] [address] [address] Doreen Betancourt Erythrocyte distribution width (RBC) [Ratio] 15.3 % Critically high 11.0-15.0 [facility] Comment on above: Performed By: #### C BC #### [facility] [address] [place] [address] Dr. Doreen Betancourt Hematocrit (Bld) [Volume fraction] 38.7 % Normal 36.0-48.0 [facility] Comment on above: Performed By: #### C BC #### [facility] [address] [place] [address] Dr. Doreen Betancourt Hemoglobin (Bld) [Mass/Vol] 12.5 g/dL Normal 12.0-16.0 [facility] Comment on above: Performed By: #### C BC #### [facility] [address] [place] [address] Dr. Doreen Betancourt IG # 0.01 10e3/ul Normal 0.00-0.03 [facility] Comment on above: Performed By: #### C BC #### [facility] [address] [place] [address] Dr. Doreen Betancourt IG % 0.3 % Normal 0.0-0.5 [facility] Comment on above: Performed By: #### C BC #### [facility] [address] [place] [address] Dr. Doreen Betancoutr LYMPH # 1.8 103/ul Normal 1.2-3.8 [facility] Comment on above: Performed By: #### C BC #### [facility] [address] [place] [address] Dr. Doreen Betancourt Lymphocytes/100 WBC (Bld) 46.0 % Normal 20.5-60.0 [facility] Comment on above: Performed By: #### C BC #### [facility] [address] [place] [address] Dr. Doreen Betancourt MANUAL DIFF REQ NO Normal [facility] Comment on above: Performed By: #### C BC #### [facility] [address] [place] [address] Dr. Doreen Betancourt MCH (RBC) [Entitic mass] 30.0 pg Normal 26.7-34.0 [facility] Comment on above: Performed By: #### C BC #### [facility] [address] [place] [address] Dr. Doreen Betancourt MCHC (RBC) [Mass/Vol] 32.3 g/dL Normal 29.9-35.2 [facility] Comment on above: Performed By: #### C BC #### [facility] [address] [place] [address] Dr. Doreen Betancourt MCV (RBC) [Entitic vol] 93.0 fL Normal 81.0-99.0 [facility] Comment on above: Performed By: #### C BC #### [facility] [address] [place] [address] Dr. Doreen Betancourt MONO # 0.4 103/ul Normal 0.3-0.8 [facility] Comment on above: Performed By: #### C BC #### [facility] [address] [place] [address] Dr. Doreen Betancourt Monocytes/100 WBC (Bld) 9.5 % Normal 1.7-12.0 [facility] Comment on above: Performed By: #### C BC #### [facility] [address] [place] [address] Dr. Doreen Betancourt NEUT # 1.7 103/ul Normal 1.4-6.5 [facility] Comment on above: Performed By: #### C BC #### [facility] [address] [place] [address] Dr. Doreen Betancourt Neutrophils/100 WBC (Bld) 42.4 % Critically low 43.0-75.0 [facility] Comment on above: Performed By: #### C BC #### [facility] [address] [place] [address] Dr. Doreen Betancourt Platelet mean volume (Bld) [Entitic vol] 9.9 fL Normal 9.5-13.5 [facility] Comment on above: Performed By: #### C BC #### [facility] [address] [place] [address] Dr. Doreen Betancourt PLT 178 103/ul Normal 150-450 [facility] Comment on above: Performed By: #### C BC #### [facility] [address] [place] [address] Dr. Doreen Betancourt RBC 4.16 106/ul Critically low 4.20-5.40 [facility] Comment on above: Performed By: #### C BC #### [facility] [address] [place] [address] Dr. Doreen Betancoutr WBC 4.0 103/ul Normal 4.0-11.0 [facility] Comment on above: Performed By: #### C BC #### [facility] [address] [place] [address] Dr. Doreen Betancourt MAGNESIUMon 06-22-2022 Magnesium [Mass/Vol] 1.9 mg/dL Normal 1.8-2.4 [facility] Comment on above: Performed By: #### M G, CMP #### [facility] [address] [place] [address] Dr. Doreen Betancourt PROF 14(COMP METB)on 022 Albumin [Mass/Vol] 3.7 g/dL Normal 3.4-5.0 [facility] Comment on above: Performed By: #### M Salena, CMP #### [facility] [address] [place] [address] Dr. Doreen Betancourt Albumin/Globulin [Mass ratio] 1.1 {ratio} Normal [facility] Comment on above: Performed By: #### M Salena, CMP #### [facility] [address] [place] [address] Dr. Doreen Betancourt ALP [Catalytic activity/Vol] 125 U/L Critically high 46-116 [facility] Comment on above: Performed By: #### M G, CMP #### [facility] [address] [place] [address] Dr. Doreen Betancourt ALT [Catalytic activity/Vol] 16 U/L Normal 14-59 [facility] Comment on above: Performed By: #### M G, CMP #### [facility] [address] [place] [address] Dr. Doreen Betancourt Anion gap [Moles/Vol] 8.8 mmol/L Normal [facility] Comment on above: Performed By: #### M G, CMP #### [facility] [address] [place] [address] Dr. Doreen Betancourt AST [Catalytic activity/Vol] 5 U/L Critically low 15-37 [facility] Comment on above: Performed By: #### M G, CMP #### [facility] [address] [place] [address] Dr. Doreen Betancourt Bilirubin [Mass/Vol] 0.3 mg/dL Normal 0.2-1.0 [facility] Comment on above: Performed By: #### M G, CMP #### [facility] [address] [place] [address] Dr. Doreen Betancourt Calcium [Mass/Vol] 8.8 mg/dL Normal 8.5-10.1 [facility] Comment on above: Performed By: #### M G, CMP #### [facility] [address] [place] [address] Dr. Doreen Betancourt Chloride [Moles/Vol] 104 mmol/L Normal 98-107 [facility] Comment on above: Performed By: #### M G, CMP #### [facility] [address] [place] [address] Dr. Doreen Betancourt CO2 [Moles/Vol] 29.5 mmol/L Normal 21.0-32.0 [facility] Comment on above: Performed By: #### M G, CMP #### [facility] [address] [place] [address] Dr. Doreen Betancourt Creatinine [Mass/Vol] 0.75 mg/dL Normal 0.55-1.02 [facility] Comment on above: Performed By: #### M G, CMP #### [facility] [address] [place] [address] Dr. Doreen Betancourt EGFR-AF [place] >60 Normal >=60 [facility] Comment on above: Performed By: #### M G, CMP #### [facility] [address] [place] [address] Dr. Doreen Betancourt EGFR-NON AF [place] >60 Normal >=60 [facility] Comment on above: Performed By: #### M G, CMP #### [facility] [address] [place] [address] Dr. Doreen Betancourt Globulin (S) [Mass/Vol] 3.3 g/dL Normal [facility] Comment on above: Performed By: #### M G, CMP #### [facility] [address] [place] [address] Dr. Doreen Betancourt Glucose [Mass/Vol] 110 mg/dL Critically high 74-106 [facility] Comment on above: Performed By: #### M G, CMP #### [facility] [address] [place] [address] Dr. Doreen Betancourt Potassium [Moles/Vol] 4.3 mmol/L Normal 3.5-5.1 [facility] Comment on above: Performed By: #### M G, CMP #### [facility] [address] [place] [address] Dr. Doreen Betancourt Protein [Mass/Vol] 7.0 g/dL Normal 6.4-8.2 [facility] Comment on above: Performed By: #### M G, CMP #### [facility] [address] [place] [address] Dr. Doreen Betancourt Sodium [Moles/Vol] 138 mmol/L Normal 136-145 [facility] Comment on above: Performed By: #### M G, CMP #### [facility] [address] [place] [address] Dr. Doreen Betancourt Urea nitrogen [Mass/Vol] 11.0 mg/dL Normal 7.0-18.0 [facility] Comment on above: Performed By: #### M G, CMP #### [facility] [address] [place] [address] Dr. Doreen Betancourt Urea nitrogen/Creatinine [Mass ratio] 14.7 mg/mg Normal [facility] Comment on above: Performed By: #### M G, CMP #### [facility] [address] [place] [address] Dr. Doreen Betancourt CBC AUTO DIFFon 06-08-2022 BASO # 0.0 103/ul Normal 0.0-0.1 [facility] Comment on above: Performed By: #### M G, CMP #### [facility] [address] [place] [address] Dr. Doreen Betancourt Basophils/100 WBC (Bld) 0.8 % Normal 0.2-2.0 [facility] Comment on above: Performed By: #### M G, CMP #### [facility] [address] [place] [address] Dr. Doreen Betancourt EO # 0.1 103/ul Normal 0.0-0.7 [facility] Comment on above: Performed By: #### M G, CMP #### [facility] [address] [place] [address] Dr. Doreen Betancourt Eosinophils/100 WBC (Bld) 2.3 % Normal 0.9-7.0 [facility] Comment on above: Performed By: #### M G, CMP #### [facility] [address] [place] [address] Dr. Doreen Betancourt Erythrocyte distribution width (RBC) [Ratio] 14.5 % Normal 11.0-15.0 [facility] Comment on above: Performed By: #### M G, CMP #### [facility] [address] [place] [address] Dr. Doreen Betancourt Hematocrit (Bld) [Volume fraction] 38.8 % Normal 36.0-48.0 [facility] Comment on above: Performed By: #### M G, CMP #### [facility] [address] [place] [address] Dr. Doreen Betancourt Hemoglobin (Bld) [Mass/Vol] 12.6 g/dL Normal 12.0-16.0 [facility] Comment on above: Performed By: #### M G, CMP #### [facility] [address] [place] [address] Dr. Doreen Betancourt IG # 0.00 10e3/ul Normal 0.00-0.03 [facility] Comment on above: Performed By: #### M G, CMP #### [facility] [address] [place] [address] Dr. Doreen Betancourt IG % 0.0 % Normal 0.0-0.5 [facility] Comment on above: Performed By: #### M G, CMP #### [facility] [address] [place] [address] Dr. Doreen Betancourt LYMPH # 1.9 103/ul Normal 1.2-3.8 [facility] Comment on above: Performed By: #### M G, CMP #### [facility] [address] [place] [address] Dr. Doreen Betancourt Lymphocytes/100 WBC (Bld) 46.7 % Normal 20.5-60.0 [facility] Comment on above: Performed By: #### M G, CMP #### [facility] [address] [place] [address] Dr. Doreen Betancourt MANUAL DIFF REQ NO Normal [facility] Comment on above: Performed By: #### M G, CMP #### [facility] [address] [place] [address] Dr. Doreen Betancourt MCH (RBC) [Entitic mass] 30.3 pg Normal 26.7-34.0 [facility] Comment on above: Performed By: #### M G, CMP #### [facility] [address] [place] [address] Dr. Doreen Betancourt MCHC (RBC) [Mass/Vol] 32.5 g/dL Normal 29.9-35.2 [facility] Comment on above: Performed By: #### M G, CMP #### [facility] [address] [place] [address] Dr. Doreen Betancourt MCV (RBC) [Entitic vol] 93.3 fL Normal 81.0-99.0 [facility] Comment on above: Performed By: #### M G, CMP #### [facility] [address] [place] [address] Dr. Doreen Betancourt MONO # 0.4 103/ul Normal 0.3-0.8 [facility] Comment on above: Performed By: #### M G, CMP #### [facility] [address] [place], [place] [id number] Dr. Doreen Betancourt Monocytes/100 WBC (Bld) 11.1 % Normal 1.7-12.0 [facility] Comment on above: Performed By: #### M G, CMP #### [facility] [address] [place] [address] Dr. Doreen Bteancourt NEUT # 1.6 103/ul Normal 1.4-6.5 [facility] Comment on above: Performed By: #### M G, CMP #### [facility] [address] [place] [address] Dr. Doreen Betancourt Neutrophils/100 WBC (Bld) 39.1 % Critically low 43.0-75.0 [facility] Comment on above: Performed By: #### M G, CMP #### [facility] [address] [place] [address] Dr. Doreen Betancourt Platelet mean volume (Bld) [Entitic vol] 9.9 fL Normal 9.5-13.5 [facility] Comment on above: Performed By: #### Gay G, CMP #### [facility] [address] [place] [address] Dr. Doreen Betancourt PLT 220 103/ul Normal 150-450 [facility] Comment on above: Performed By: #### M G, CMP #### [facility] [address] [place] [address] Dr. Doreen Betancourt RBC 4.16 106/ul Critically low 4.20-5.40 [facility] Comment on above: Performed By: #### M G, CMP #### [facility] [address] [place] [address] Dr. Doreen Betancourt WBC 4.0 103/ul Normal 4.0-11.0 [facility] Comment on above: Performed By: #### M G, CMP #### [facility] [address] [place] [address] Dr. Doreen Betancourt MAGNESIUMon 06-08-2022 Magnesium [Mass/Vol] 2.2 mg/dL Normal 1.8-2.4 [facility] Comment on above: Performed By: #### C VDTBH #### [facility] [address] [place] [address] Dr. Doreen Betancourt PROF 14(COMP METB)on 022 Albumin [Mass/Vol] 3.9 g/dL Normal 3.4-5.0 [facility] Comment on above: Performed By: #### C VDTBH #### [facility] [address] [place] [address] Dr. Doreen Betancourt Albumin/Globulin [Mass ratio] 1.1 {ratio} Normal [facility] Comment on above: Performed By: #### C VDTBH #### [facility] [address] [place] [address] Dr. Doreen Betancourt ALP [Catalytic activity/Vol] 100 U/L Normal 46-116 [facility] Comment on above: Performed By: #### C VDTBH #### [facility] [address] [place] [address] Dr. Doreen Betancourt ALT [Catalytic activity/Vol] 19 U/L Normal 14-59 [facility] Comment on above: Performed By: #### C VDTBH #### [facility] [address] [place] [address] Dr. Doreen Betancourt Anion gap [Moles/Vol] 6.9 mmol/L Normal [facility] Comment on above: Performed By: #### C VDTBH #### [facility] [address] [place] [address] Dr. Doreen Betancourt AST [Catalytic activity/Vol] 14 U/L Critically low 15-37 [facility] Comment on above: Performed By: #### C VDTBH #### [facility] [address] [place] [address] Dr. Doreen Betancourt Bilirubin [Mass/Vol] 0.3 mg/dL Normal 0.2-1.0 [facility] Comment on above: Performed By: #### C VDTBH #### [facility] [address] [place] [address] Dr. Doreen Betancourt Calcium [Mass/Vol] 9.6 mg/dL Normal 8.5-10.1 [facility] Comment on above: Performed By: #### C VDTBH #### [facility] [address] [place] [address] Dr. Doreen Betancourt Chloride [Moles/Vol] 105 mmol/L Normal 98-107 [facility] Comment on above: Performed By: #### C VDTBH #### [facility] [address] [address] [address] Doreen Betancourt CO2 [Moles/Vol] 32.2 mmol/L Critically high 21.0-32.0 [facility] Comment on above: Performed By: #### C VDTBH #### [facility] [address] [place] [address] Dr. Doreen Betancourt Creatinine [Mass/Vol] 0.69 mg/dL Normal 0.55-1.02 [facility] Comment on above: Performed By: #### C VDTBH #### [facility] [address] [place] [address] Dr. Doreen Betancourt EGFR-AF [place] >60 Normal >=60 [facility] Comment on above: Performed By: #### C VDTBH #### [facility] [address] [place] [address] Dr. Doreen Betancourt EGFR-NON AF [place] >60 Normal >=60 [facility] Comment on above: Performed By: #### C VDTBH #### [facility] [address] [place] [address] Dr. Doreen Betancourt Globulin (S) [Mass/Vol] 3.6 g/dL Normal [facility] Comment on above: Performed By: #### C VDTBH #### [facility] [address] [place] [address] Dr. Doreen Betancourt Glucose [Mass/Vol] 103 mg/dL Normal 74-106 [facility] Comment on above: Performed By: #### C VDTBH #### [facility] [address] [place] [address] Dr. Doreen Betancourt Potassium [Moles/Vol] 5.1 mmol/L Normal 3.5-5.1 [facility] Comment on above: Performed By: #### C VDTBH #### [facility] [address] [place] [address] Dr. Doreen Betancourt Protein [Mass/Vol] 7.5 g/dL Normal 6.4-8.2 [facility] Comment on above: Performed By: #### C VDTBH #### [facility] [address] [place] [address] Dr. Doreen Betancourt Sodium [Moles/Vol] 139 mmol/L Normal 136-145 [facility] Comment on above: Performed By: #### C VDTBH #### [facility] [address] [place] [address] Dr. Doreen Betancourt Urea nitrogen [Mass/Vol] 13.0 mg/dL Normal 7.0-18.0 [facility] Comment on above: Performed By: #### C VDTBH #### [facility] [address] [place] [address] Dr. Doreen Betancourt Urea nitrogen/Creatinine [Mass ratio] 18.8 mg/mg Normal [facility] Comment on above: Performed By: #### C VDTBH #### [facility] [address] [place] [address] Dr. Doreen Betancourt CBC AUTO DIFFon 06-01-2022 BASO # 0.0 103/ul Normal 0.0-0.1 [facility] Comment on above: Performed By: #### C BC #### [facility] [address] [place] [address] Dr. Doreen Betancourt Basophils/100 WBC (Bld) 0.7 % Normal 0.2-2.0 [facility] Comment on above: Performed By: #### C BC #### [facility] [address] [place] [address] Dr. Doreen Betancourt EO # 0.1 103/ul Normal 0.0-0.7 [facility] Comment on above: Performed By: #### C BC #### [facility] [address] [place] [address] Dr. Doreen Betancourt Eosinophils/100 WBC (Bld) 2.0 % Normal 0.9-7.0 [facility] Comment on above: Performed By: #### C BC #### [facility] [address] [place] [address] Dr. Doreen Betancourt Erythrocyte distribution width (RBC) [Ratio] 13.9 % Normal 11.0-15.0 [facility] Comment on above: Performed By: #### C BC #### [facility] [address] [place] [address] Dr. Doreen Betancourt Hematocrit (Bld) [Volume fraction] 41.2 % Normal 36.0-48.0 [facility] Comment on above: Performed By: #### C BC #### [facility] [address] [place] [address] Dr. Doreen Betancorut Hemoglobin (Bld) [Mass/Vol] 13.2 g/dL Normal 12.0-16.0 [facility] Comment on above: Performed By: #### C BC #### [facility] [address] [place] [address] Dr. Doreen Betancourt IG # 0.01 10e3/ul Normal 0.00-0.03 [facility] Comment on above: Performed By: #### C BC #### [facility] [address] [place] [address] Dr. Doreen Betancourt IG % 0.2 % Normal 0.0-0.5 [facility] Comment on above: Performed By: #### C BC #### [facility] [address] [place] [address] Dr. Doreen Betancourt LYMPH # 1.9 103/ul Normal 1.2-3.8 [facility] Comment on above: Performed By: #### C BC #### [facility] [address] [place] [address] Dr. Doreen Betancourt Lymphocytes/100 WBC (Bld) 41.0 % Normal 20.5-60.0 [facility] Comment on above: Performed By: #### C BC #### [facility] [address] [place] [address] Dr. Doreen Betancourt MANUAL DIFF REQ NO Normal [facility] Comment on above: Performed By: #### C BC #### [facility] [address] [place] [address] Dr. Doreen Betancourt MCH (RBC) [Entitic mass] 29.3 pg Normal 26.7-34.0 [facility] Comment on above: Performed By: #### C BC #### [facility] [address] [place] [address] Dr. Doreen Betancourt MCHC (RBC) [Mass/Vol] 32.0 g/dL Normal 29.9-35.2 [facility] Comment on above: Performed By: #### C BC #### [facility] [address] [place] [address] Dr. Doreen Betancourt MCV (RBC) [Entitic vol] 91.6 fL Normal 81.0-99.0 [facility] Comment on above: Performed By: #### C BC #### [facility] [address] [place] [address] Dr. Doreen Betancourt MONO # 0.1 103/ul Critically low 0.3-0.8 [facility] Comment on above: Performed By: #### C BC #### [facility] [address] [place] [address] Dr. Doreen Betancourt Monocytes/100 WBC (Bld) 1.5 % Critically low 1.7-12.0 [facility] Comment on above: Performed By: #### C BC #### [facility] [address] [place] [address] Dr. Doreen Betancourt NEUT # 2.5 103/ul Normal 1.4-6.5 [facility] Comment on above: Performed By: #### C BC #### [facility] [address] [place] [address] Dr. Doreen Betancourt Neutrophils/100 WBC (Bld) 54.6 % Normal 43.0-75.0 [facility] Comment on above: Performed By: #### C BC #### [facility] [address] [place] [address] Dr. Doreen Betancourt Platelet mean volume (Bld) [Entitic vol] 10.5 fL Normal 9.5-13.5 [facility] Comment on above: Performed By: #### C BC #### [facility] [address] [place] [address] Dr. Doreen Betancourt PLT 270 103/ul Normal 150-450 [facility] Comment on above: Performed By: #### C BC #### [facility] [address] [place] [address] Dr. Doreen Betancourt RBC 4.50 106/ul Normal 4.20-5.40 [facility] Comment on above: Performed By: #### C BC #### [facility] [address] [place] [address] Dr. Doreen Betancourt WBC 4.6 103/ul Normal 4.0-11.0 [facility] Comment on above: Performed By: #### C BC #### [facility] [address] [place] [address] Dr. Doreen Betancourt PROF 14(COMP METB)on 022 Albumin [Mass/Vol] 3.9 g/dL Normal 3.4-5.0 [facility] Comment on above: Performed By: #### C BC #### [facility] [address] [place] [address] Dr. Doreen Betancourt Albumin/Globulin [Mass ratio] 1.0 {ratio} Normal [facility] Comment on above: Performed By: #### C BC #### [facility] [address] [place] [address] Dr. Doreen Betancourt ALP [Catalytic activity/Vol] 83 U/L Normal 46-116 [facility] Comment on above: Performed By: #### C BC #### [facility] [address] [place] [address] Dr. Doreen Betancourt ALT [Catalytic activity/Vol] 22 U/L Normal 14-59 [facility] Comment on above: Performed By: #### C BC #### [facility] [address] [place] [address] Dr. Doreen Betancourt Anion gap [Moles/Vol] 12.6 mmol/L Normal [facility] Comment on above: Performed By: #### C BC #### [facility] [address] [place] [address] Dr. Doreen Betancourt AST [Catalytic activity/Vol] 16 U/L Normal 15-37 [facility] Comment on above: Performed By: #### C BC #### [facility] [address] [place] [address] Dr. Doreen Betancourt Bilirubin [Mass/Vol] 0.6 mg/dL Normal 0.2-1.0 [facility] Comment on above: Performed By: #### C BC #### [facility] [address] [place] [address] Dr. Doreen Betancourt Calcium [Mass/Vol] 9.4 mg/dL Normal 8.5-10.1 [facility] Comment on above: Performed By: #### C BC #### [facility] [address] [place] [address] Dr. Doreen Betancourt Chloride [Moles/Vol] 101 mmol/L Normal 98-107 [facility] Comment on above: Performed By: #### C BC #### [facility] [address] [place] [address] Dr. Doreen Betancourt CO2 [Moles/Vol] 25.9 mmol/L Normal 21.0-32.0 [facility] Comment on above: Performed By: #### C BC #### [facility] [address] [place] [address] Dr. Doreen Betancourt Creatinine [Mass/Vol] 0.64 mg/dL Normal 0.55-1.02 [facility] Comment on above: Performed By: #### C BC #### [facility] [address] [place] [address] Dr. Doreen Betancourt EGFR-AF [place] >60 Normal >=60 [facility] Comment on above: Performed By: #### C BC #### [facility] [address] [place] [address] Dr. Doreen Betancourt EGFR-NON AF [place] >60 Normal >=60 [facility] Comment on above: Performed By: #### C BC #### [facility] [address] [place] [address] Dr. Doreen Betancourt Globulin (S) [Mass/Vol] 3.9 g/dL Normal [facility] Comment on above: Performed By: #### C BC #### [facility] [address] [address] [address] Doreen Betancourt Glucose [Mass/Vol] 135 mg/dL Critically high 74-106 T [facility] Comment on above: Performed By: #### C BC #### [facility] [address] [address] [address] Doreen Betancourt Potassium [Moles/Vol] 4.5 mmol/L Normal 3.5-5.1 [facility] Comment on above: Performed By: #### C BC #### [facility] [address] [address] [address] Doreen Betancourt Protein [Mass/Vol] 7.8 g/dL Normal 6.4-8.2 [facility] Comment on above: Performed By: #### C BC #### [facility] [address] [place] [address] Dr. Doreen Betancuort Sodium [Moles/Vol] 135 mmol/L Critically low 136-145 [facility] Comment on above: Performed By: #### C BC #### [facility] [address] [place] [address] Dr. Doreen Betancourt Urea nitrogen [Mass/Vol] 15.0 mg/dL Normal 7.0-18.0 [facility] Comment on above: Performed By: #### C BC #### [facility] [address] [place] [address] Dr. oDreen Betancourt Urea nitrogen/Creatinine [Mass ratio] 23.4 mg/mg Normal [facility] Comment on above: Performed By: #### C BC #### [facility] [address] [place] [address] Dr. Doreen Betancourt CBC AUTO DIFFon 05-22-2022 BASO # 0.0 103/ul Normal 0.0-0.1 [facility] Comment on above: Performed By: #### C VDTB #### [facility] [address] [address] [address] Doreen Betancourt Basophils/100 WBC (Bld) 0.8 % Normal 0.2-2.0 [facility] Comment on above: Performed By: #### C VDTBH #### [facility] [address] [place] [address] Dr. Doreen Betancourt EO # 0.1 103/ul Normal 0.0-0.7 [facility] Comment on above: Performed By: #### C VDTBH #### [facility] [address] [place] [address] Dr. Doreen Betancourt Eosinophils/100 WBC (Bld) 2.7 % Normal 0.9-7.0 [facility] Comment on above: Performed By: #### C VDTBH #### [facility] [address] [place] [address] Dr. Doreen Betancourt Erythrocyte distribution width (RBC) [Ratio] 13.9 % Normal 11.0-15.0 [facility] Comment on above: Performed By: #### C VDTBH #### [facility] [address] [place] [address] Dr. Doreen Betancourt Hematocrit (Bld) [Volume fraction] 40.9 % Normal 36.0-48.0 [facility] Comment on above: Performed By: #### C VDTBH #### [facility] [address] [place] [address] Dr. Doreen Betancourt Hemoglobin (Bld) [Mass/Vol] 13.1 g/dL Normal 12.0-16.0 [facility] Comment on above: Performed By: #### C VDTBH #### [facility] [address] [place] [address] Dr. Doreen Betancourt IG # 0.01 10e3/ul Normal 0.00-0.03 [facility] Comment on above: Performed By: #### C VDTBH #### [facility] [address] [place] [address] Dr. Doreen Betancourt IG % 0.2 % Normal 0.0-0.5 [facility] Comment on above: Performed By: #### C VDTBH #### [facility] [address] [place] [address] Dr. Doreen Betancourt LYMPH # 1.9 103/ul Normal 1.2-3.8 [facility] Comment on above: Performed By: #### C VDTBH #### [facility] [address] [place] [address] Dr. Doreen Betancourt Lymphocytes/100 WBC (Bld) 39.1 % Normal 20.5-60.0 [facility] Comment on above: Performed By: #### C VDTBH #### [facility] [address] [place] [address] Dr. Doreen Betancourt MANUAL DIFF REQ NO Normal [facility] Comment on above: Performed By: #### C VDTBH #### [facility] [address] [place] [address] Dr. Doreen Betancourt MCH (RBC) [Entitic mass] 29.6 pg Normal 26.7-34.0 [facility] Comment on above: Performed By: #### C VDTBH #### [facility] [address] [place] [address] Dr. Doreen Betancourt MCHC (RBC) [Mass/Vol] 32.0 g/dL Normal 29.9-35.2 [facility] Comment on above: Performed By: #### C VDTBH #### [facility] [address] [place] [address] Dr. Doreen Betancourt MCV (RBC) [Entitic vol] 92.3 fL Normal 81.0-99.0 [facility] Comment on above: Performed By: #### C VDTBH #### [facility] [address] [place] [address] Dr. Doreen Betancourt MONO # 0.4 103/ul Normal 0.3-0.8 [facility] Comment on above: Performed By: #### C VDTBH #### [facility] [address] [place] [address] Dr. Doreen Betancourt Monocytes/100 WBC (Bld) 7.6 % Normal 1.7-12.0 [facility] Comment on above: Performed By: #### C VDTBH #### [facility] [address] [place] [address] Dr. Doreen Betancourt NEUT # 2.4 103/ul Normal 1.4-6.5 [facility] Comment on above: Performed By: #### C VDTBH #### [facility] [address] [address] [address] Doreen Betancourt Neutrophils/100 WBC (Bld) 49.6 % Normal 43.0-75.0 [facility] Comment on above: Performed By: #### C VDTBH #### [facility] [address] [address] [address] Doreen Betancourt Platelet mean volume (Bld) [Entitic vol] 10.3 fL Normal 9.5-13.5 [facility] Comment on above: Performed By: #### C VDTBH #### [facility] [address] [place] [address] Dr. Doreen Betancourt PLT 274 103/ul Normal 150-450 [facility] Comment on above: Performed By: #### C VDTBH #### [facility] [address] [place] [address] Dr. Doreen Betancourt RBC 4.43 106/ul Normal 4.20-5.40 [facility] Comment on above: Performed By: #### C VDTBH #### [facility] [address] [place] [address] Dr. Doreen Betancourt WBC 4.9 103/ul Normal 4.0-11.0 [facility] Comment on above: Performed By: #### C VDTBH #### [facility] [address] [place] [address] Dr. Doreen Betancourt MAGNESIUMon 05-22-2022 Magnesium [Mass/Vol] 2.1 mg/dL Normal 1.8-2.4 [facility] Comment on above: Performed By: #### M G, CMP #### [facility] [address] [place] [address] Dr. Doreen Betancourt PREG HCG QUALon 05-22-2022 , QUAL Negative Normal NEGATIVE [facility] Comment on above: Performed By: #### M G, CMP #### [facility] [address] [place] [address] Dr. Doreen Betancourt PROF 14(COMP METB)on 022 Albumin [Mass/Vol] 3.9 g/dL Normal 3.4-5.0 [facility] Comment on above: Performed By: #### M G, CMP #### [facility] [address] [place] [address] Dr. Doreen Betancourt Albumin/Globulin [Mass ratio] 1.1 {ratio} Normal [facility] Comment on above: Performed By: #### M G, CMP #### [facility] [address] [place] [address] Dr. Doreen Betancourt ALP [Catalytic activity/Vol] 81 U/L Normal 46-116 [facility] Comment on above: Performed By: #### M G, CMP #### [facility] [address] [place] [address] Dr. Doreen Betancourt ALT [Catalytic activity/Vol] 27 U/L Normal 14-59 [facility] Comment on above: Performed By: #### Gay Martino, CMP #### [facility] [address] [place] [address] Dr. Doreen Betancourt Anion gap [Moles/Vol] 8.6 mmol/L Normal [facility] Comment on above: Performed By: #### M G, CMP #### [facility] [address] [place] [address] Dr. Doreen Betancourt AST [Catalytic activity/Vol] 23 U/L Normal 15-37 [facility] Comment on above: Performed By: #### M G, CMP #### [facility] [address] [place] [address] Dr. Doreen Betancourt Bilirubin [Mass/Vol] 0.3 mg/dL Normal 0.2-1.0 [facility] Comment on above: Performed By: #### M G, CMP #### [facility] [address] [place] [address] Dr. Doreen Betancourt Calcium [Mass/Vol] 9.5 mg/dL Normal 8.5-10.1 [facility] Comment on above: Performed By: #### M G, CMP #### [facility] [address] [place] [address] Dr. Doreen Betancourt Chloride [Moles/Vol] 104 mmol/L Normal 98-107 [facility] Comment on above: Performed By: #### M G, CMP #### [facility] [address] [place] [address] Dr. Doreen Betancourt CO2 [Moles/Vol] 31.8 mmol/L Normal 21.0-32.0 [facility] Comment on above: Performed By: #### M G, CMP #### [facility] [address] [place] [address] Dr. Doreen Betancourt Creatinine [Mass/Vol] 0.59 mg/dL Normal 0.55-1.02 [facility] Comment on above: Performed By: #### M G, CMP #### [facility] [address] [place] [address] Dr. Doreen Betancourt EGFR-AF [place] >60 Normal >=60 [facility] Comment on above: Performed By: #### M G, CMP #### [facility] [address] [place] [address] Dr. Doreen Betancourt EGFR-NON AF [place] >60 Normal >=60 [facility] Comment on above: Performed By: #### M G, CMP #### [facility] [address] [place] [address] Dr. Doreen Betancourt Globulin (S) [Mass/Vol] 3.7 g/dL Normal [facility] Comment on above: Performed By: #### M G, CMP #### [facility] [address] [place] [address] Dr. Doreen Betancourt Glucose [Mass/Vol] 110 mg/dL Critically high 74-106 [facility] Comment on above: Performed By: #### M G, CMP #### [facility] [address] [place] [address] Dr. Doreen Betancourt Potassium [Moles/Vol] 4.4 mmol/L Normal 3.5-5.1 [facility] Comment on above: Performed By: #### M G, CMP #### [facility] [address] [place] [address] Dr. Doreen Betancourt Protein [Mass/Vol] 7.6 g/dL Normal 6.4-8.2 [facility] Comment on above: Performed By: #### M G, CMP #### [facility] [address] [address] [address] Doreen Betancourt Sodium [Moles/Vol] 140 mmol/L Normal 136-145 [facility] Comment on above: Performed By: #### M G, CMP #### [facility] [address] [address] [address] Doreen Betancourt Urea nitrogen [Mass/Vol] 17.0 mg/dL Normal 7.0-18.0 [facility] Comment on above: Performed By: #### M G, CMP #### [facility] [address] [address] [address] Doreen Betancourt Urea nitrogen/Creatinine [Mass ratio] 28.8 mg/mg Normal [facility] Comment on above: Performed By: #### M G, CMP #### [facility] [address] [address] [address] Doreen Betancourt XR CHEST 1 Von 05-22-2022 XR CHEST 1 V EXAMINATION: XR CHES T 1 V HISTORY: Primary malignant neoplasm of sigmoid colon ; post Port-A-Cath insertion COMPARISON: No relevant comparison available. FINDINGS: LUNGS: No significant pulmonary parenchymal abnormalities. VASCULATURE: No increased pulmonary vasculature. PLEURA: No pneumothorax, effusion, or pleural thickening. CARDIAC: No cardiomegaly or cardiac silhouette abnormality. MEDIASTINUM: No visible mass or adenopathy. BONES: No fracture or visible bone lesion. OTHER: Port-A-Cath projecting over left chest with distal catheter tip in superior vena cava. IMPRESSION: 1. No acute cardiopulmonary process following Port-A-Cath insertion. Electronically authenticated by: NEDA COULTER Date: 2022-05-22 11:22 Normal [facility] Covid-19 PCR (CVDTB)on 05-07 SARS-CoV-2 (COVID-19) RNA MARIVEL+probe Ql (Unsp spec) Not detected Normal NOT DETECTED [facility] Comment on above: Result Comment: This test is not yet approved or cleared by the [place] FDA. When there are no FDA-approved or cleared tests available, and other criteria are met, FDA can make tests available under an emergency access mechanism called an Emergency Use Authorization (EUA). The EUA for this test is supported by the [place] of Health and Human Service's (HHS's) declaration that circumstances exist to justify the emergency use of in vitro diagnostics for the detection and/or diagnosis of the virus that causes COVID-19. This EUA will remain in effect (meaning this test can be used) for the duration of the COVID-19 declaration justifying emergency of IVDs, unless it is terminated or revoked by FDA (after which the test may no longer be used). When diagnostic testing is negative, the possibility of a false negative should be considered in the context of a patient's recent exposures and the presence of clinical signs and symptoms consistent with SARS-CoV-2. Performed By: #### C COUNT INCLUDES THE [facility] #### [facility] [address] [place] [address] Dr. Doreen Betancourt CBC AUTO DIFFon 04-13-2022 BASO # 0.0 103/ul Normal 0.0-0.1 [facility] Comment on above: Performed By: #### M G, CMP #### [facility] [address] [place] [address] Dr. Doreen Betancourt Basophils/100 WBC (Bld) 0.4 % Normal 0.2-2.0 [facility] Comment on above: Performed By: #### M G, CMP #### [facility] [address] [place] [address] Dr. Doreen Betnacourt EO # 0.1 103/ul Normal 0.0-0.7 [facility] Comment on above: Performed By: #### M G, CMP #### [facility] [address] [place] [address] Dr. Doreen Betancourt Eosinophils/100 WBC (Bld) 0.7 % Critically low 0.9-7.0 [facility] Comment on above: Performed By: #### M G, CMP #### [facility] [address] [place] [address] Dr. Doreen Betancourt Erythrocyte distribution width (RBC) [Ratio] 12.9 % Normal 11.0-15.0 [facility] Comment on above: Performed By: #### M G, CMP #### [facility] [address] [place] [address] Dr. Doreen Betancourt Hematocrit (Bld) [Volume fraction] 32.5 % Critically low 36.0-48.0 [facility] Comment on above: Performed By: #### M G, CMP #### [facility] [address] [place] [address] Dr. Doreen Betancourt Hemoglobin (Bld) [Mass/Vol] 10.6 g/dL Critically low 12.0-16.0 [facility] Comment on above: Performed By: #### M G, CMP #### [facility] [address] [place] [address] Dr. Doreen Betancourt IG # 0.02 10e3/ul Normal 0.00-0.03 [facility] Comment on above: Performed By: #### M G, CMP #### [facility] [address] [place] [address] Dr. Doreen Betancourt IG % 0.3 % Normal 0.0-0.5 [facility] Comment on above: Performed By: #### M G, CMP #### [facility] [address] [place] [address] Dr. Doreen Betancourt LYMPH # 2.2 103/ul Normal 1.2-3.8 [facility] Comment on above: Performed By: #### M G, CMP #### [facility] [address] [place] [address] Dr. Doreen Betancourt Lymphocytes/100 WBC (Bld) 32.0 % Normal 20.5-60.0 [facility] Comment on above: Performed By: #### M G, CMP #### [facility] [address] [place] [address] Dr. Doreen Betancourt MANUAL DIFF REQ NO Normal [facility] Comment on above: Performed By: #### M G, CMP #### [facility] [address] [place] [address] Dr. Doreen Betancourt MCH (RBC) [Entitic mass] 30.5 pg Normal 26.7-34.0 [facility] Comment on above: Performed By: #### M G, CMP #### [facility] [address] [address] [address] Doreen Betancourt MCHC (RBC) [Mass/Vol] 32.6 g/dL Normal 29.9-35.2 [facility] Comment on above: Performed By: #### M G, CMP #### [facility] [address] [address] [address] Doreen Betancourt MCV (RBC) [Entitic vol] 93.4 fL Normal 81.0-99.0 [facility] Comment on above: Performed By: #### M G, CMP #### [facility] [address] [address] [address] Doreen Betancourt MONO # 0.6 103/ul Normal 0.3-0.8 [facility] Comment on above: Performed By: #### M G, CMP #### [facility] [address] [place] [address] Dr. Doreen Betancourt Monocytes/100 WBC (Bld) 8.3 % Normal 1.7-12.0 [facility] Comment on above: Performed By: #### M G, CMP #### [facility] [address] [place] [address] Dr. Doreen Betancourt NEUT # 3.9 103/ul Normal 1.4-6.5 [facility] Comment on above: Performed By: #### M G, CMP #### [facility] [address] [address] [address] Doreen Betancourt Neutrophils/100 WBC (Bld) 58.3 % Normal 43.0-75.0 [facility] Comment on above: Performed By: #### M G, CMP #### [facility] [address] [address] [address] Doreen Betancourt Platelet mean volume (Bld) [Entitic vol] 10.4 fL Normal 9.5-13.5 [facility] Comment on above: Performed By: #### M G, CMP #### [facility] [address] [address] [address] Doreen Betancourt PLT 213 103/ul Normal 150-450 [facility] Comment on above: Performed By: #### M G, CMP #### [facility] [address] [place] [address] Dr. Doreen Betancourt RBC 3.48 106/ul Critically low 4.20-5.40 [facility] Comment on above: Performed By: #### M G, CMP #### [facility] [address] [place] [address] Dr. Doreen Betancourt WBC 6.8 103/ul Normal 4.0-11.0 [facility] Comment on above: Performed By: #### M G, CMP #### [facility] [address] [place] [address] Dr. Doreen Betancourt PROF CHEM 8 (BAS METB)on Anion gap [Moles/Vol] 7.3 mmol/L Normal [facility] Comment on above: Performed By: #### M G, CMP #### [facility] [address] [place] [address] Dr. Doreen Betancourt Calcium [Mass/Vol] 8.8 mg/dL Normal 8.5-10.1 [facility] Comment on above: Performed By: #### M G, CMP #### [facility] [address] [place] [address] Dr. Doreen Betancourt Chloride [Moles/Vol] 105 mmol/L Normal 98-107 [facility] Comment on above: Performed By: #### M G, CMP #### [facility] [address] [place] [address] Dr. Doreen Betancourt CO2 [Moles/Vol] 27.8 mmol/L Normal 21.0-32.0 [facility] Comment on above: Performed By: #### M G, CMP #### [facility] [address] [place] [address] Dr. Doreen Betancourt Creatinine [Mass/Vol] 0.57 mg/dL Normal 0.55-1.02 [facility] Comment on above: Performed By: #### M G, CMP #### [facility] [address] [place] [address] Dr. Doreen Betancourt EGFR-AF [place] >60 Normal >=60 [facility] Comment on above: Performed By: #### M G, CMP #### [facility] [address] [address] [address] Doreen Betancourt EGFR-NON AF [place] >60 Normal >=60 [facility] Comment on above: Performed By: #### M G, CMP #### [facility] [address] [address] [address] Doreen Betancourt Glucose [Mass/Vol] 93 mg/dL Normal 74-106 [facility] Comment on above: Performed By: #### M G, CMP #### [facility] [address] [address] [address] Doreen Betancourt Potassium [Moles/Vol] 4.1 mmol/L Normal 3.5-5.1 [facility] Comment on above: Performed By: #### M G, CMP #### [facility] [address] [address] [address] Doreen Betancourt Sodium [Moles/Vol] 136 mmol/L Normal 136-145 [facility] Comment on above: Performed By: #### M G, CMP #### [facility] [address] [address] [address] Doreen Betancourt Urea nitrogen [Mass/Vol] 5.0 mg/dL Critically low 7.0-18.0 [facility] Comment on above: Performed By: #### M G, CMP #### [facility] [address] [address] [address] Doreen Betancourt Urea nitrogen/Creatinine [Mass ratio] 8.8 mg/mg Normal [facility] Comment on above: Performed By: #### M G, CMP #### [facility] [address] [address] [address] Doreen Betancourt PROF CHEM 8 (BAS METB)on Anion gap [Moles/Vol] 9.6 mmol/L Normal [facility] Comment on above: Performed By: #### C VDTBH #### [facility] [address] [address] [address] Doreen Betancourt Calcium [Mass/Vol] 8.8 mg/dL Normal 8.5-10.1 [facility] Comment on above: Performed By: #### C VDTBH #### [facility] [address] [place] [address] Dr. Doreen Betancourt Chloride [Moles/Vol] 101 mmol/L Normal 98-107 [facility] Comment on above: Performed By: #### C VDTBH #### [facility] [address] [place] [address] Dr. Doreen Betancourt CO2 [Moles/Vol] 26.8 mmol/L Normal 21.0-32.0 [facility] Comment on above: Performed By: #### C VDTBH #### [facility] [address] [place] [address] Dr. Doreen Betancourt Creatinine [Mass/Vol] 0.53 mg/dL Critically low 0.55-1.02 [facility] Comment on above: Performed By: #### C VDTBH #### [facility] [address] [place] [address] Dr. Doreen Betancourt EGFR-AF [place] >60 Normal >=60 [facility] Comment on above: Performed By: #### C VDTBH #### [facility] [address] [place] [address] Dr. Doreen Betancourt EGFR-NON AF [place] >60 Normal >=60 [facility] Comment on above: Performed By: #### C VDTBH #### [facility] [address] [place] [address] Dr. Doreen Betancourt Glucose [Mass/Vol] 122 mg/dL Critically high 74-106 [facility] Comment on above: Performed By: #### C VDTBH #### [facility] [address] [place] [address] Dr. Doreen Betancourt Potassium [Moles/Vol] 3.4 mmol/L Critically low 3.5-5.1 [facility] Comment on above: Performed By: #### C VDTBH #### [facility] [address] [place] [address] Dr. Doreen Betancourt Sodium [Moles/Vol] 134 mmol/L Critically low 136-145 [facility] Comment on above: Performed By: #### C VDTBH #### [facility] [address] [place] [address] Dr. Doreen Betancourt Urea nitrogen [Mass/Vol] 6.0 mg/dL Critically low 7.0-18.0 [facility] Comment on above: Performed By: #### C VDTBH #### [facility] [address] [place] [address] Dr. Doreen Betancourt Urea nitrogen/Creatinine [Mass ratio] 11.3 mg/mg Normal [facility] Comment on above: Performed By: #### C VDTBH #### [facility] [address] [place] [address] Dr. Doreen Betancourt CBC AUTO DIFFon 04-11-2022 BASO # 0.0 103/ul Normal 0.0-0.1 [facility] Comment on above: Performed By: #### M G, CMP #### [facility] [address] [place] [address] Dr. Doreen Betancourt Basophils/100 WBC (Bld) 0.1 % Critically low 0.2-2.0 [facility] Comment on above: Performed By: #### M Salena, CMP #### [facility] [address] [place] [address] Dr. Doreen Betancourt EO # 0.0 103/ul Normal 0.0-0.7 [facility] Comment on above: Performed By: #### M Salena, CMP #### [facility] [address] [place] [address] Dr. Doreen Betancourt Eosinophils/100 WBC (Bld) 0.0 % Critically low 0.9-7.0 [facility] Comment on above: Performed By: #### M G, CMP #### [facility] [address] [place] [address] Dr. Doreen Betancourt Erythrocyte distribution width (RBC) [Ratio] 13.0 % Normal 11.0-15.0 [facility] Comment on above: Performed By: #### M Salena, CMP #### [facility] [address] [place] [address] Dr. Doreen Betancourt Hematocrit (Bld) [Volume fraction] 35.6 % Critically low 36.0-48.0 [facility] Comment on above: Performed By: #### M G, CMP #### [facility] [address] [place] [address] Dr. Doreen Betancourt Hemoglobin (Bld) [Mass/Vol] 11.5 g/dL Critically low 12.0-16.0 [facility] Comment on above: Performed By: #### M G, CMP #### [facility] [address] [place] [address] Dr. Doreen Betancourt IG # 0.02 10e3/ul Normal 0.00-0.03 [facility] Comment on above: Performed By: #### M G, CMP #### [facility] [address] [place] [address] Dr. Doreen Betancourt IG % 0.2 % Normal 0.0-0.5 [facility] Comment on above: Performed By: #### M G, CMP #### [facility] [address] [place] [address] Dr. Doreen Betancourt LYMPH # 1.3 103/ul Normal 1.2-3.8 [facility] Comment on above: Performed By: #### M G, CMP #### [facility] [address] [place] [address] Dr. Doreen Betancourt Lymphocytes/100 WBC (Bld) 12.4 % Critically low 20.5-60.0 [facility] Comment on above: Performed By: #### M G, CMP #### [facility] [address] [place] [address] Dr. Doreen Betancourt MANUAL DIFF REQ NO Normal [facility] Comment on above: Performed By: #### M G, CMP #### [facility] [address] [place] [address] Dr. Doreen Betancourt MCH (RBC) [Entitic mass] 29.9 pg Normal 26.7-34.0 [facility] Comment on above: Performed By: #### M G, CMP #### [facility] [address] [place] [address] Dr. Doreen Betancourt MCHC (RBC) [Mass/Vol] 32.3 g/dL Normal 29.9-35.2 [facility] Comment on above: Performed By: #### M G, CMP #### [facility] [address] [address] [address] Doreen Betancourt MCV (RBC) [Entitic vol] 92.7 fL Normal 81.0-99.0 [facility] Comment on above: Performed By: #### M G, CMP #### [facility] [address] [address] [address] Doreen Betancourt MONO # 0.9 103/ul Critically high 0.3-0.8 [facility] Comment on above: Performed By: #### M G, CMP #### [facility] [address] [address] [address] Doreen Betancourt Monocytes/100 WBC (Bld) 8.8 % Normal 1.7-12.0 [facility] Comment on above: Performed By: #### M G, CMP #### [facility] [address] [address] [address] Doreen Betancourt NEUT # 8.3 103/ul Critically high 1.4-6.5 [facility] Comment on above: Performed By: #### M G, CMP #### [facility] [address] [address] [address] Doreen Betancourt Neutrophils/100 WBC (Bld) 78.5 % Critically high 43.0-75.0 [facility] Comment on above: Performed By: #### M G, CMP #### [facility] [address] [address] [address] Doreen Betancourt Platelet mean volume (Bld) [Entitic vol] 10.6 fL Normal 9.5-13.5 [facility] Comment on above: Performed By: #### M G, CMP #### [facility] [address] [address] [address] Doreen Betancourt PLT 218 103/ul Normal 150-450 [facility] Comment on above: Performed By: #### M G, CMP #### [facility] [address] [place] [address] Dr. Doreen Betancourt RBC 3.84 106/ul Critically low 4.20-5.40 [facility] Comment on above: Performed By: #### M G, CMP #### [facility] [address] [place] [address] Dr. Doreen Betancourt WBC 10.6 103/ul Normal 4.0-11.0 [facility] Comment on above: Performed By: #### M G, CMP #### [facility] [address] [place] [address] Dr. Doreen Betancourt PROF CHEM 8 (BAS METB)on Anion gap [Moles/Vol] 9.4 mmol/L Normal [facility] Comment on above: Performed By: #### M G, CMP #### [facility] [address] [place] [address] Dr. Doreen Betancourt Calcium [Mass/Vol] 8.4 mg/dL Critically low 8.5-10.1 [facility] Comment on above: Performed By: #### M G, CMP #### [facility] [address] [place] [address] Dr. Doreen Betancourt Chloride [Moles/Vol] 105 mmol/L Normal 98-107 [facility] Comment on above: Performed By: #### M G, CMP #### [facility] [address] [place] [address] Dr. Doreen Betancourt CO2 [Moles/Vol] 25.1 mmol/L Normal 21.0-32.0 [facility] Comment on above: Performed By: #### M G, CMP #### [facility] [address] [place] [address] Dr. Doreen Betancourt Creatinine [Mass/Vol] 0.50 mg/dL Critically low 0.55-1.02 [facility] Comment on above: Performed By: #### M G, CMP #### [facility] [address] [place] [address] Dr. Doreen Betancourt EGFR-AF [place] >60 Normal >=60 [facility] Comment on above: Performed By: #### M G, CMP #### [facility] [address] [address] [address] Doreen Betancourt EGFR-NON AF [place] >60 Normal >=60 [facility] Comment on above: Performed By: #### M G, CMP #### [facility] [address] [address] [address] Doreen Betancourt Glucose [Mass/Vol] 114 mg/dL Critically high 74-106 [facility] Comment on above: Performed By: #### M G, CMP #### [facility] [address] [address] [address] Doreen Betancourt Potassium [Moles/Vol] 3.5 mmol/L Normal 3.5-5.1 [facility] Comment on above: Performed By: #### M G, CMP #### [facility] [address] [place] [address] Dr. Doreen Betancourt Sodium [Moles/Vol] 136 mmol/L Normal 136-145 [facility] Comment on above: Performed By: #### M G, CMP #### [facility] [address] [address] [address] Doreen Betancourt Urea nitrogen [Mass/Vol] 6.0 mg/dL Critically low 7.0-18.0 [facility] Comment on above: Performed By: #### M G, CMP #### [facility] [address] [place] [address] Dr. Doreen Betancourt Urea nitrogen/Creatinine [Mass ratio] 12.0 mg/mg Normal [facility] Comment on above: Performed By: #### M G, CMP #### [facility] [address] [address] [address] Doreen Betancourt CBC AUTO DIFFon 04-08-2022 BASO # 0.1 103/ul Normal 0.0-0.1 [facility] Comment on above: Performed By: #### M G, CMP #### [facility] [address] [place] [address] Dr. Doreen Betancourt Basophils/100 WBC (Bld) 0.8 % Normal 0.2-2.0 [facility] Comment on above: Performed By: #### M G, CMP #### [facility] [address] [place] [address] Dr. Doreen Betancourt EO # 0.1 103/ul Normal 0.0-0.7 [facility] Comment on above: Performed By: #### M G, CMP #### [facility] [address] [place] [address] Dr. Doreen Betancourt Eosinophils/100 WBC (Bld) 1.8 % Normal 0.9-7.0 [facility] Comment on above: Performed By: #### M G, CMP #### [facility] [address] [place] [address] Dr. Doreen Betancourt Erythrocyte distribution width (RBC) [Ratio] 13.0 % Normal 11.0-15.0 [facility] Comment on above: Performed By: #### M G, CMP #### [facility] [address] [place] [address] Dr. Doreen Betancourt Hematocrit (Bld) [Volume fraction] 42.1 % Normal 36.0-48.0 [facility] Comment on above: Performed By: #### M G, CMP #### [facility] [address] [place] [address] Dr. Doreen Betancourt Hemoglobin (Bld) [Mass/Vol] 13.4 g/dL Normal 12.0-16.0 [facility] Comment on above: Performed By: #### M G, CMP #### [facility] [address] [place] [address] Dr. Doreen Betancourt IG # 0.02 10e3/ul Normal 0.00-0.03 [facility] Comment on above: Performed By: #### M G, CMP #### [facility] [address] [place] [address] Dr. Doreen Betancourt IG % 0.3 % Normal 0.0-0.5 [facility] Comment on above: Performed By: #### M G, CMP #### [facility] [address] [place] [address] Dr. Doreen Betancourt LYMPH # 2.1 103/ul Normal 1.2-3.8 [facility] Comment on above: Performed By: #### M G, CMP #### [facility] [address] [place] [address] Dr. Doreen Betancourt Lymphocytes/100 WBC (Bld) 31.6 % Normal 20.5-60.0 [facility] Comment on above: Performed By: #### M G, CMP #### [facility] [address] [place] [address] Dr. Doreen Betancourt MANUAL DIFF REQ NO Normal [facility] Comment on above: Performed By: #### M G, CMP #### [facility] [address] [place] [address] Dr. Doreen Betancourt MCH (RBC) [Entitic mass] 30.2 pg Normal 26.7-34.0 [facility] Comment on above: Performed By: #### M G, CMP #### [facility] [address] [place] [address] Dr. Doreen Betancourt MCHC (RBC) [Mass/Vol] 31.8 g/dL Normal 29.9-35.2 [facility] Comment on above: Performed By: #### M G, CMP #### [facility] [address] [place] [address] Dr. Doreen Betancourt MCV (RBC) [Entitic vol] 95.0 fL Normal 81.0-99.0 [facility] Comment on above: Performed By: #### M G, CMP #### [facility] [address] [place] [address] Dr. Doreen Betancourt MONO # 0.4 103/ul Normal 0.3-0.8 [facility] Comment on above: Performed By: #### M G, CMP #### [facility] [address] [place] [address] Dr. Doreen Betancourt Monocytes/100 WBC (Bld) 6.2 % Normal 1.7-12.0 [facility] Comment on above: Performed By: #### M G, CMP #### [facility] [address] [place] [address] Dr. Doreen Betancourt NEUT # 3.9 103/ul Normal 1.4-6.5 [facility] Comment on above: Performed By: #### M G, CMP #### [facility] [address] [place] [address] Dr. Doreen Betancourt Neutrophils/100 WBC (Bld) 59.3 % Normal 43.0-75.0 [facility] Comment on above: Performed By: #### M G, CMP #### [facility] [address] [place] [address] Dr. Doreen Betancourt Platelet mean volume (Bld) [Entitic vol] 10.2 fL Normal 9.5-13.5 [facility] Comment on above: Performed By: #### M G, CMP #### [facility] [address] [place] [address] Dr. Doreen Betancourt PLT 276 103/ul Normal 150-450 [facility] Comment on above: Performed By: #### M G, CMP #### [facility] [address] [place] [address] Dr. Doreen Betancourt RBC 4.43 106/ul Normal 4.20-5.40 [facility] Comment on above: Performed By: #### M G, CMP #### [facility] [address] [place] [address] Dr. Doreen Betancourt WBC 6.6 103/ul Normal 4.0-11.0 [facility] Comment on above: Performed By: #### M G, CMP #### [facility] [address] [place] [address] Dr. Doreen Betancourt [facility]on SARS-CoV-2 (COVID-19) RNA MARIVEL+probe Ql (Unsp spec) Not detected Normal NOT DETECTED [facility] Comment on above: Result Comment: When diagnostic testing is negative, the possibility of a false negative should be considered in the context of a patient's recent exposures and the presence of clinical signs and symptoms consistent with SARS-CoV-2. This test is not yet approved or cleared by the [place] FDA. When there are no FDA-approved or cleared tests available, and other criteria are met, FDA can make tests available under an emergency access mechanism called an Emergency Use Authorization (EUA). The EUA for this test is supported by the [employer] of Health and Human Service's declaration that circumstances exist to justify the emergency use of in vitro diagnostics for the detection and/or diagnosis of the virus that causes COVID-19. This EUA will remain in effect for the duration of the COVID-19 declaration justifying emergency of IVDs, unless it is terminated or revoked by the FDA (after which the test may no longer be used). Performed By: #### M Salena, CMP #### [facility] [address] [place] [address] Dr. Doreen Betancourt TYPE AND SCREENon 04-08-2022 TYPE AND SCREEN Negative Normal [facility] Comment on above: Performed By: #### Gay Martino, CMP #### [facility] [address] [place] [address] Dr. Doreen Betancourt CEAon 2022 CEA 4.9 ng/mL Critically high 0.0-4.7 [facility] Comment on above: Result Comment: Nons mokers <3.9 Smokers <5.6 . [employer] Electrochemiluminescence Immunoassay (ECLIA) . Values obtained with different assay methods or kits cannot be used interchangeably. Results cannot be interpreted as absolute evidence of the presence or absence of malignant disease. Performed By: #### Gay Martino, CMP #### [facility] [address] [place] [address] Dr. Doreen Betancourt PROF 14(COMP METB)on 022 Albumin [Mass/Vol] 3.6 g/dL Normal 3.4-5.0 [facility] Comment on above: Performed By: #### Gay G, CMP #### [facility] [address] [place] [address] Dr. Doreen Betancourt Albumin/Globulin [Mass ratio] 1.1 {ratio} Normal [facility] Comment on above: Performed By: #### Gay G, CMP #### [facility] [address] [place] [address] Dr. Doreen Betancourt ALP [Catalytic activity/Vol] 76 U/L Normal 46-116 [facility] Comment on above: Performed By: #### Gay Martino, CMP #### [facility] [address] [address] [address] Doreen Betancourt ALT [Catalytic activity/Vol] 18 U/L Normal 14-59 [facility] Comment on above: Performed By: #### M G, CMP #### [facility] [address] [address] [address] Doreen Betancourt Anion gap [Moles/Vol] 12.7 mmol/L Normal [facility] Comment on above: Performed By: #### M G, CMP #### [facility] [address] [address] [address] Doreen Betancourt AST [Catalytic activity/Vol] 15 U/L Normal 15-37 [facility] Comment on above: Performed By: #### M G, CMP #### [facility] [address] [place] [address] Dr. Doreen Betancourt Bilirubin [Mass/Vol] 0.3 mg/dL Normal 0.2-1.0 [facility] Comment on above: Performed By: #### M G, CMP #### [facility] [address] [place] [address] Dr. Doreen Betancourt Calcium [Mass/Vol] 8.8 mg/dL Normal 8.5-10.1 [facility] Comment on above: Performed By: #### M G, CMP #### [facility] [address] [place] [address] Dr. Doreen Betancourt Chloride [Moles/Vol] 104 mmol/L Normal 98-107 [facility] Comment on above: Performed By: #### M G, CMP #### [facility] [address] [address] [address] Doreen Betancourt CO2 [Moles/Vol] 25.5 mmol/L Normal 21.0-32.0 [facility] Comment on above: Performed By: #### M G, CMP #### [facility] [address] [address] [address] Doreen Betancourt Creatinine [Mass/Vol] 0.61 mg/dL Normal 0.55-1.02 [facility] Comment on above: Performed By: #### M G, CMP #### [facility] [address] [address] [address] Doreen Betancourt EGFR-AF [place] >60 Normal >=60 [facility] Comment on above: Performed By: #### M G, CMP #### [facility] [address] [address] [address] Doreen Betancourt EGFR-NON AF [place] >60 Normal >=60 [facility] Comment on above: Performed By: #### M G, CMP #### [facility] [address] [address] [address] Doreen Betancourt Globulin (S) [Mass/Vol] 3.3 g/dL Normal [facility] Comment on above: Performed By: #### M G, CMP #### [facility] [address] [place] [address] Dr. Doreen Betancourt Glucose [Mass/Vol] 93 mg/dL Normal 74-106 [facility] Comment on above: Performed By: #### M G, CMP #### [facility] [address] [place] [address] Dr. Doreen Betancourt Potassium [Moles/Vol] 4.2 mmol/L Normal 3.5-5.1 [facility] Comment on above: Performed By: #### M G, CMP #### [facility] [address] [place] [address] Dr. Doreen Betancourt Protein [Mass/Vol] 6.9 g/dL Normal 6.4-8.2 [facility] Comment on above: Performed By: #### M G, CMP #### [facility] [address] [place] [address] Dr. Doreen Betancourt Sodium [Moles/Vol] 138 mmol/L Normal 136-145 [facility] Comment on above: Performed By: #### M G, CMP #### [facility] [address] [place] [address] Dr. Doreen Betancourt Urea nitrogen [Mass/Vol] 17.0 mg/dL Normal 7.0-18.0 The [facility] Comment on above: Performed By: #### M G, CMP #### [facility] [address], [place] [address] Dr. Doreen Betancourt Urea nitrogen/Creatinine [Mass ratio] 27.9 mg/mg Normal [facility] Comment on above: Performed By: #### M G, [facility] #### [facility] [address], [place] [address] ABD/PELV W CONon 03-27-[address] ABD/PELV W CON EXAMINATION: CT ABD/ PELV W CON HISTORY: Primary malignant neoplasm of sigmoid colon ; new diagnosis of sigmoid colon cancer; incomplete colonoscopy COMPARISON: CT abdomen pelvis 01/09/2022 TECHNIQUE: Axial, Coronal, and Sagittal images were obtained without and/or with IV contrast as indicated by examination type. Dose reduction techniques were achieved by using automated exposure control and/or adjustment of mA and/or kV according to patient size and/or use of iterative reconstruction technique. FINDINGS: LUNG BASES: No visible pulmonary or pleural disease. LIVER: No enlargement, atrophy, suspicious density, or significant focal lesion. BILIARY: No dilatation or calcification. PANCREAS: No lesion, fluid collection, or abnormal duct dilatation. SPLEEN: No enlargement or focal lesion. ADRENALS: No mass or enlargement. KIDNEYS: No mass, obstruction, or calcification. BOWEL/MESENTERY: Asymmetric wall thickening of the right lateral wall of the mid sigmoid colon, 1.1 cm in thickness, 2.4 cm in length. Short, 1 cm segment and nearby 2 cm segment of mild circumferential wall thickening and luminal narrowing of the mid and distal descending colon, most likely peristalsis. AORTA/VASCULAR: No aneurysm or dissection. RETROPERITONEUM: No mass or adenopathy. LYMPH NODES: No adenopathy. URINARY BLADDER: No visible focal wall thickening, lesion, or calculus. PELVIC ORGANS: No visible mass. Pelvic organs appropriate for patient age. ABDOMINAL WALL: No mass or hernia. BONES: No bony lesion or fracture. OTHER: Negative. IMPRESSION: 1. Suspect small colonic wall mass within mid sigmoid colon. Additional areas of stricture involving the descending colon more likely peristalsis. 2. No lymphadenopathy or findings to suggest metastatic disease. Electronically authenticated by: NEDA COULTER Date: 2022-03-27 17:13 Normal [facility] Covid-19 PCR (CVDTB)on SARS-CoV-2 (COVID-19) RNA MARIVEL+probe Ql (Unsp spec) Not detected Normal NOT DETECTED [facility] Comment on above: Result Comment: This test is not yet approved or cleared by the [place] FDA. When there are no FDA-approved or cleared tests available, and other criteria are met, FDA can make tests available under an emergency access mechanism called an Emergency Use Authorization (EUA). The EUA for this test is supported by the [place] of Health and Human Service's (HHS's) declaration that circumstances exist to justify the emergency use of in vitro diagnostics for the detection and/or diagnosis of the virus that causes COVID-19. This EUA will remain in effect (meaning this test can be used) for the duration of the COVID-19 declaration justifying emergency of IVDs, unless it is terminated or revoked by FDA (after which the test may no longer be used). When diagnostic testing is negative, the possibility of a false negative should be considered in the context of a patient's recent exposures and the presence of clinical signs and symptoms consistent with SARS-CoV-2. Performed By: #### M G, CMP #### [facility] [address] [place] [address] ABD/PELV W CONon 01-10-20 CT ABD/PELV W CON EXAMINATION: CT ABD/ PELV W CON HISTORY: Abdominal pain ; left lower quadrant pain for 3 months COMPARISON: No relevant comparison available. TECHNIQUE: Axial, Coronal, and Sagittal images were created with IV contrast. Dose reduction techniques were achieved by using automated exposure control and/or adjustment of mA and/or kV according to patient size and/or use of iterative reconstruction technique. FINDINGS: LUNG BASES: No visible pulmonary or pleural disease. LIVER: 12 mm rounded hypodensity within the anterior right hepatic lobe, possible hemangioma. BILIARY: No dilatation or calcification. PANCREAS: No lesion, fluid collection, or abnormal duct dilatation. SPLEEN: No enlargement or focal lesion. ADRENALS: No mass or enlargement. KIDNEYS: No mass, obstruction, or calcification. BOWEL/MESENTERY: Large amount of stool within the ascending colon. No visible mass, obstruction, or bowel wall thickening. AORTA/VASCULAR: No aneurysm or dissection. RETROPERITONEUM: No mass or adenopathy. LYMPH NODES: No adenopathy. URINARY BLADDER: No visible focal wall thickening, lesion, or calculus. PELVIC ORGANS: No visible mass. Pelvic organs appropriate for patient age. ABDOMINAL WALL: No mass or hernia. BONES: No bony lesion or fracture. OTHER: Negative. IMPRESSION: 1. No abnormal or suspicious findings to account for patient's symptoms. Electronically authenticated by: NEDA COULTER Date: 2022-01-09 17:53 Normal [facility] Coding Summaryon 05-01-2021 Coding Summary HTMLBase 64 JvccwlstRMv1xQn+PGhlYWQ+PE 9MTPVgD09ytLMvbO7YY4xDPW6I GIUUNPEOZV1NRH0tyTB6SBirP3 VybiAv OnloaKPvXL41JSc6IQI7pQrcGM motV2afDByU4j6EePpSB92lE65 HWtpFXHdDaV3MxGmhvdldIEl X3ifGxVktZOxDjs+PHRhYmxlIH gxVIXqCJpsLXOcShNbbSfrTK8x Rc1yOCZxWZKvfAmdjPKnRmFf s8dmCNLuFMsaSL4tlXnvH1EzeD C2CQTym6a2Et40pDB+PHRkIHN0 oWlsMWmkq429MhIwj9seAVT7 vWBtUOsfHKC4W05sj0Z0IUBrPV VrHMM7yWT5kZ0taNdfvibeP2Go mVEtJnE8FES7dILzcI2bxEcs uxxlaN4gGig+G19ONX0MMURZXB 7HQzz5S9FmUdldgLO+ME87GQEk UE22tBCrfGVjz2znjYu2VxKz YCRfMXG0gDarMYfej0TfHQAvO6 5zaJOfg8U0XODxaQyscIUiWwEe rUF3eQ1jSCzqetgeg4jpyhef Uubwq0bimh54dV87G29aYSnySI QsLDP8CWQcLPOpqBwfti6isH8c Ii8+IYcva5umv4urqUk5ViMb SMGqifQxkHmqJRN3c0LcBa20T8 LebWqnr4MmVdo4ni52hLExo8T2 qZU4ASwgAJNwpC1bACmyOdD5 WEPoWvHzqS73rFHzZLznFg7cmK kxjCcvNQ9sTJBqfoktFNInbJ4d AZSufSBrgHppMN4nYPSncyzd s476HaFfAGQ5SQDjcLAqU6XeuK 7aZvVdIHNsGNIqR6CbxGVfUYxt I197KEbtHuH5ILHqswRoX9Gs GNRczPkkOqZ4x6A4Uu5Ih2Nsrp zxNHX5GItwFSHmHtF7OgQvPwP6 T5MtRzw1AFMjiZzmMG4pQ4Wv YIWkmeoihypwwCA5RDZrNOKrrC 07nMJvRYyzNv4mz9U3m421LFNb HHSqxQ50Nn6gdJcbUJAqqSEN pW8dzddxb0skdsjxFyUuJCXlFS o7IDa1TJDfpEafAjHgNCM7IoF7 OAD8rGZaaE4sxWqdptnslU7l Oyc+X03muX6aYTK5IDU8vripPZ UgztUbZH63PM99X8UnEnmqsBEm bGU+SHCpavHbdCweKZ6xSyKf u3hvt7WtCDktY5QxELCdTPhzTb o8FZHmWUC3zRF2hY0wZGXxRIfc g1N5uHW8Y9WtwcKfpz2we5qo LRLiCZmaY65pnFPyu5H0KCNfvW G2KUIrpHoaXaKkzB61Gpk+PGNv iNneg8YvWmwvi8yfz2pxuNz1 JhIjDXRpqoXtvDipLXA3m3KvVv 02X87rDEzwLRXpZGZnRZWjFOUt qVqhsk3vqI0bIy4+PGNvbCB3 vUX6lW0nDZNsWqS4JRjoY803Rr UriAIvAkpza5key5wjkTj3AaOm SPKnkkMdiZjcFMQ8v9OoBl22 E01eLMbnNIYoULGrHIDcKACsmH dztm3nfN7eXj0+YF9kc2rmaj37 eI44aIF+PDNqDBD0dOkmCWqx IQJjkT9uPWsyDiD5BEUqWmHdhK 55gZWcMCxvZg6jaDzxzPixSW9a FKNvismik264AiAhu3ggTJUg vSUbBUfsUDY9D37vz7A0TKLeWP GpEMM0iRN9hY6xwSgpyglteBWc eFhftyDjpEwoGHdtQLucP101 IHRvcDsnPlBhdGllbnQgTmFtZT f1S2UdEzy9LDWcxPphAU2ygYIz PXurJk2pyKxfiBxgSH1fPPHg wifwe433TzVqe6drSYOfpSDkQV soCZT4Q28qq2G5YHRiSUZtRQM4 uQC6iC4ziEqgcasogCSctIfc hrJfiVjaQOzcJKcwX192WGXpeZ ajJwDorbWtLCDqgBN8NM91YM55 bPQld3A9wIL6Q7IfWXMxxsch vhqayYO0GVEkBAPfnS84Ba0zeU kgGf1vYNUjUAT4RXQnvARzR8Zr jF3gBcQeERHmGOHmO8JygCPu ZKhgG317KSktCyA0NOXanuWlY9 WePGDhuMgsQdX4n6H0Yf3GV4F3 PK15MP80tFAgw4S8lPJ7N3Vx URVhvgiwkvbhmJG6LBTdEYUgiA 60Di3esFyzYj2kPIGgNVL0IYMi pAOvA4HuaY8nPbRqIYGnVTCq Z9VdqCFvKNvdB906GNcfBoV9LA SyccXdR3YrVMBovWkjHoE8f4L1 Dy0UALx3LR43JL78mIOti3M3 tRN5A2WwBPUsrbldignptBY6LN EzXHHjzK17Ls6htHxgQf6fESBg HLK5QYQjgQLuQ7BxhL2hPnIl IICuXMFzF8WnxRMsCZxyL047PI anZlM1FPJtvyVmZ2PhVXMmeOvl CdR5t8Y6Fs7PRDFkSA53DTW7 xSO6MN63PS59B6AoShpqzIPnxT U+PHRhYmxlIHdpZHRoPScxMDAl UxHofEpdWF3pVm9vMLAmDFNk uTuruKZzGqDrz2xxWQXqZOneIO 7erAlrI6CpmLX3VOSzr3i4Xg02 H31fA2AohPG+ZDXvlMU3hCG8 zS9wKuUzGoJ0QRqcK923YbNnhF SxLmtqx5sbi6ybzWo4NtM6SPZw jvDokCbdTJB8p0VzAr11M81z IHdpZHRoPSIxNSUiIHZhbGlnbj 9mhD7cDk4+FCPazCW0kIM4iG4s WwHxPhI3XGurI216GfMqxPOo Wzrau1rgu0oobNm7JuDmBEFpwc RilYdhYPL6p1TzTy39Z4BofQcx x2UoLsg9yi92nHVud3Z2nGD8 T1MuKCWynmreyUXiiJzpQG1uPR SauvaxWIJbaJ5kXASpR1f3LsMp PbM1QMfnO1JtrxW6CMUhtFNg XFtkMWP7W22vi1D1NHHuVDFwWC I8lXK8tP6ylHcnnwmdoVYdgJiu kbKcbAfiYNmbOMmjM363BXQv jHqhIZWhuR7uAVMajKAqhVeaQJ 4wNTBpbjsnPlBFVElUVEksIEpV RElUSDwvdGQ+NJFsGMT0vZjj JTdiMMIvzZ2xGLEzP6q6UvCfTk O5HBnwU0LkHXSxwlzyDc01jK1r XhLaNaX9TVdvS2XrwqB0CHRp gXQiDJsgFEO8N39eb6H4IWJxLV RlIUN9oOF1nO8luRydtibdpNLh hGcowoKjtKyyKKlhSWfvY730 AYHykBueEqD9RrI8BhE6FbE4U0 WwJxc9TELblOdbEF0ekNNoTBcs Bs9gxSmvjZwjCQ9zVCArayxu VBLwfZ6eNVAayTAiiDxcNX1cZZ Rmhkumy280GwOtWFR3AJIvmNBy R2HrxT7lBbJiQVKwINYkD8Td zVZpZXkzS793QTeeAsA1SGRukr TsG7DiXNEqkMkdXgB6h1R9Vs29 NSBZZWFyczwvdGQ+PHRkIHN0 gQpjGIjkCEWcxZ1tTXQlB1j3Gw LtAeC6FJieV4SuCMTgpujvYg35 wZ6fSyFtQeL1GPhcW2JyhrO4 RNDofYErBQbaXHP8P40st5L5VS HxCHRxNRM8lJO2sI2teBsyhlcx bGVmdDsgdmVydGljYWwtYWxp E693FULukQtjBaSSMXKVBIwblQ Q+RYSdFFK2qXciEWtmQFWvoT5e LOWnV4l6AbYaCtU4WNjoT4Jb VSSotnjdXr35rR5uTjSgRlJ6SZ glB4RkazP8HSJurFLcZPwiLIT4 F29fy1U0NSLfTVLqJFP4xZG5 mP7avPkwnkfmeIRfoIfmlcIigN zuSYpiXSnoX869AWXtrVjeSv1T AW68KV07Z8GhCvvuyBKzwFX+ PHRhYmxlIHdpZHRoPScxMDAlJy LsuVhxZS5xSn1xWHTbJKKbcUxr iTIkWvNsy2lvLAOrMQzqTH6z qGqnL8BjpAG5IURsl0x1Qf16Z3 8hK3SdoTT+WSCjcXD0fIM5wR9i XrYeBjZ1KQglT508KpSuzATf Nlrdb6amf0rizSi3FaIvTEBqot TolFgiNAG5n2PvCm73V87zAPvj RHDrAVBxWRUmRWBrfEfgkh5l bC6eLi8+SFOcnFJ4iQX2yA6zRu GiYfK4HSdlA902CjLaqNWmJudm G44hC4BrcZD+LWPfUqj1XDDy bHtcLW4gjZTbFDreIh7eDPT7Sj DbXaQdFFcnB7YzGMOfwambheow fPW0VIYoAGFrlJ57Xt6joUos Tl7pPUUgIGR0UMRbbFCcM2UyeU 3lVyQnPMCcMSTdU3GipYEiJOpj N268XVxeBcG2KAWgvbUuC8Vn HRTvtNbkUsR2e1S8Nz8HxBxakK MoJR8yDuXdPAu8M0SuLkx1UUCg hJkaLJ0vrSSnFXaoOr2deAon tRlkPA3jIWChoucxo651JuHeb4 iiFEErhJIwRKjtJLD3N68tz5S4 TOKbJVDjYEH9bDU8yR5jxXyv bjogbGVmdDsgdmVydGljYWwtYW hiA990UOSygRgwCiTOPva2U9Sj Enc7YABhfPkpLE3veEWbLZyj Dp8vfHetbQiqOG1rHSObaqfie2 44BpLig9zwLUJniIWxXNvnDPP1 A32qe2Q1AZRnXYKuZUA1lCD2 pH2glBnsxzzmcFEswOsiywXbfA ytNXhpBKbyP896PZXfdKztZb3W Sbf4V2JlSrw6FFTnrRafXB2k fPDcMPvoMz4ccBhzhYvbNU2eDX Thcqbpq217AkWle9wsSISlhGQc RZglKMD6K29df2B1JNGpZKOl FBU7yWV5nU4fvVutsrrbaXGrhN xajnRbpHzsCZrhXOvzS825ACXn cDsnPlBheWVyOjwvdGQ+PC90 zz20V4DjNibgPbo7DAYgZFY2dC U9zU1eKLMiTHcuh8J2hLB0P0Ml yzXjiv9qj6kvTIKzOOivK44z bGF (more content not included)... Normal [facility] ED Clinical Summaryon 2020 ED Clinical Summary [facility] ? Urgent Care [address] [place] [address] Clinical Summary PERSON INFORMATION Name: MARYSOL GARDNER Age: 56 Years Sex: FEMALE : 1965 MRN: Acct#: Visit Reason: Wrist laceration; LEFT WRIST LAC Arrival: 04/21/2021 17:52:39 Discharge: 04/21/2021 18:47:00 LOS: 000 00:55 Check In: 04/21/2021 17:52:39 Checkout: 04/21/2021 18:47:00 Address: [address] [place] [address] PCP: Sandro Cihn MD PROVIDER INFORMATION Provider Role Assigned Unassigned Leo Art PA-C ED PA 04/21/2021 17:54:51 Lauren Boyer ED Nurse 04/21/2021 17:57:15 VITALS INFORMATION Vital Sign Triage Latest Temperature Tympanic Temperature Temporal Artery Pulse Rate O2 Sat Respiratory Rate Blood Pressure /80 mmHg /80 mmHg MEDICAL INFORMATION Medications Given: Medication Dose Route bacitracin topical 500 unit(s) TOP Allergy Information: No Known Medication Allergies PHYSICIAN DOCUMENTATION DISCHARGE INFORMATION: Discharge Disposition: Home Discharge Location: Home PATIENT EDUCATION INFORMATION Instructions: Laceration Care, Adult, Ceuf-dk-Hoye Follow-Up: With: Address: When: Sandro Chin [address] [place] [address], [place] [address] Business (1) Within 3 to 5 days Comments: Please follow-up with Dr. Chin, call the office schedule an appointment to be seen in 3 to 5 days for wound check, please take your Augmentin as prescribed, keep the wound clean, apply bacitracin and keep it covered, have sutures removed in 10 to 12 days from today, take hbom-bhm-pppiwmn pain medication as needed, and return back to the urgent care center for any worsening symptoms, concerns, or complications. DIAGNOSIS: 1:Laceration of left wrist Patient Understands: Yes - Patient/family/caregiver verbalizes understanding of instructions given Comment: Normal [facility] ED Patient Summaryon 021 ED Patient Summary [facility] ? Urgent Care [address] [place] [address] [id number] PATIENT DISCHARGE INSTRUCTIONS Patient Information Name: MARYSOL GARDNER Age: 56 Years Date of : 1965 Reason For Visit: Wrist laceration; LEFT WRIST LAC Arrival Time: 04/21/2021 17:52:39 Primary Care Physician: Sandro Chin MD Attending Physician: Leo Art PA-C Comment: Patient Education With: Address: When: Sandro Chin [address] [place] [id number] Business (1) Within 3 to 5 days Comments: Please follow-up with Dr. Chin, call the office schedule an appointment to be seen in 3 to 5 days for wound check, please take your Augmentin as prescribed, keep the wound clean, apply bacitracin and keep it covered, have sutures removed in 10 to 12 days from today, take kmui-rnm-mydryve pain medication as needed, and return back to the urgent care center for any worsening symptoms, concerns, or complications. Laceration Care, Adult A laceration is a cut that may go through all layers of the skin. The cut may also go into the tissue that is right under the skin. Some cuts heal on their own. Others need to be closed with stitches (sutures), yuridia, skin adhesive strips, or skin glue. Taking care of your injury lowers your risk of infection, helps your injury to heal better, and may prevent scarring. Supplies needed: ? Soap. ? Water. ? Hand candy spreader helper. ? Bandage (dressing). ? Antibiotic ointment. ? Clean towel. How to take care of your cut Wash your hands with soap and water before touching your wound or changing your bandage. If soap and water are not available, use hand candy spreader helper. If your doctor used stitches or yuridia: ? Keep the wound clean and dry. ? If you were given a bandage, change it at least once a day as told by your doctor. You should also change it if it gets wet or dirty. ? Keep the wound completely dry for the first 24 hours, or as told by your doctor. After that, you may take a shower or a bath. Do not get the wound soaked in water until after the stitches or yuridia have been removed. ? Clean the wound once a day, or as told by your doctor: ? Wash the wound with soap and water. ? Rinse the wound with water to remove all soap. ? Pat the wound dry with a clean towel. Do not rub the wound. ? After you clean the wound, put a thin layer of antibiotic ointment on it as told by your doctor. This ointment: ? Helps to prevent infection. ? Keeps the bandage from sticking to the wound. ? Have your stitches or yuridia removed as told by your doctor. If your doctor used skin adhesive strips: ? Keep the wound clean and dry. ? If you were given a bandage, you should change it at least once a day as told by your doctor. You should also change it if it gets wet or dirty. ? Do not get the skin adhesive strips wet. You can take a shower or a bath, but keep the wound dry. ? If the wound gets wet, pat it dry with a clean towel. Do not rub the wound. ? Skin adhesive strips fall off on their own. You can trim the strips as the wound heals. Do not remove any strips that are still stuck to the wound. They will fall off after a while. If your doctor used skin glue: ? Try to keep your wound dry, but you may briefly wet it in the shower or bath. Do not soak the wound in water, such as by swimming. ? After you take a shower or a bath, gently pat the wound dry with a clean towel. Do not rub the wound. ? Do not do any activities that will make you really sweaty until the skin glue has fallen off on its own. ? Do not apply liquid, cream, or ointment medicine to your wound while the skin glue is still on. ? If you were given a bandage, you should change it at least once a day or as told by your doctor. You should also change it if it gets dirty or wet. ? If a bandage is placed over the wound, do not let the tape touch the skin glue. ? Do not pick at the glue. The skin glue usually stays on for 5?10 days. Then, it falls off the skin. General instructions ? Take yhnx-zro-sfnhzyz and prescription medicines only as told by your doctor. ? If you were given antibiotic medicine or ointment, take or apply it as told by your doctor. Do not stop using it even if your condition improves. ? Do not scratch or pick at the wound. ? Check your wound every day for signs of infection. Watch for: ? Redness, swelling, or pain. ? Fluid, blood, or pus. ? Raise (elevate) the injured area above the level of your heart while you are sitting or lying down. ? If directed, put ice on the affected area: ? Put ice in a plastic bag. ? Place a towel between your skin and the bag. ? Leave the ice on for 20 minutes, 2?3 times a day. ? Prevent scarring by covering your wound with sunscreen of at least 30 SPF whenever you are outside after your wound has healed. ? Keep all follow-up visits as told by your doctor (more content not included)... Normal [facility] Progress Note - Nurseon 10- Progress Note - Nurse sutured wound irma summers, bacitracin applied and a bandage, pt tolerated well [Electronically Signed on: 04/21/2021 18:57 EDT] Lauren Boyer [Verified on: 04/21/2021 18:57 EDT] Lauren Boyer [facility] 021 Urgent Care Record [facility] ? Urgent Care [address] [place] [address] PATIENT DISCHARGE INSTRUCTIONS Patient Information Name: MARYSOL GARDNER Age: 56 Years Date of : 1965 Reason For Visit: Wrist laceration; LEFT WRIST LAC Arrival Time: 04/21/2021 17:52:39 Primary Care Physician: Sandro Chin MD Attending Physician: Leo Art PA-C Comment: Visit Diagnosis: Diagnoses This Visit Laceration of left wrist (S61.512A) Wrist laceration ([id number]) If you received any narcotics, sedation, or any other medication that causes drowsiness for the next 24 hours, unless otherwise directed: ? Do not drive a car. ? Do not operate machinery such as power tools, lawn mowers, drills, sewing machines, or stoves ? Avoid alcoholic beverages and drugs for allergies, nerves, or sleep ? Do not make important personal or business decisions or sign any legal documents With: Address: When: Sandro Chin [address] [place] [address] [place] [address] Business (1) Within 3 to 5 days Comments: Please follow-up with Dr. Chin, call the office schedule an appointment to be seen in 3 to 5 days for wound check, please take your Augmentin as prescribed, keep the wound clean, apply bacitracin and keep it covered, have sutures removed in 10 to 12 days from today, take vavc-kyg-fqqpvdv pain medication as needed, and return back to the urgent care center for any worsening symptoms, concerns, or complications. Medication Information: The exam and treatment you received today in the [facility] were for an urgent problem and are not intended as complete care. It is important for you to follow up with a doctor, nurse practitioner, or physician?s records management assistant for ongoing care. If your symptoms become worse or you do not improve as expected and you are unable to reach your usual health care provider, you should return to the Emergency Department, we are available 24 hours a day. For those patients who have received Radiology results, the interpretation of your X-ray as given to you by our Urgent Care physician is only a preliminary report. The Radiologist will review your films and if there is a change in the diagnosis you will be notified by phone. Please make sure you have provided a working phone number so we can reach you if necessary. In the event that you had a lab culture while you were a patient in the Urgent Care, you will be notified by phone if there is a need to change your antibiotic. Please make sure you have provided a working phone number so we can reach you if necessary. [facility] has provided you with a complete list of medications post discharge. Please inform your primary class teacher/provider of your visit and for further instruction on these medications. Any specific questions regarding your chronic medications and dosages should be discussed with your primary care physician(s) and/or pharmacist. New Medications [facility] [id number] [place], [place] [id number], [phone] amoxicillin-clavulanate (Augmentin 875 mg-125 mg oral tablet) 1 tab(s) Oral Every 12 hours scheduled time for 10 Days. Refills: 0. Other Medications bacitracin topical (bacitracin 500 units/g topical ointment) Topical once. Medications to Continue That Have Not Changed Other Medications brimonidine ophthalmic (brimonidine 0.2% ophthalmic solution) 1 Drops Ophthalmic Every 8 hours. dorzolamide-timolol ophthalmic (dorzolamide-timolol 2.23%-0.68% ophthalmic solution) 1 Drops Ophthalmic 2 times a day. latanoprost ophthalmic (latanoprost 0.005% ophthalmic solution) 1 Drops Ophthalmic once a day (at bedtime). Visit Information Allergies: Substance Reaction Symptoms Type Comments No Known Medication Allergies Drug Vital Signs: Vitals and Measurements this Visit (last charted value for your 04/21/2021 visit) Vital Signs This Visit Temperature Oral: 36.6 DegC Apical Heart Rate: 76 bpm Respiratory Rate: 16 br/min Systolic Blood Pressure: 132 mmHg Diastolic Blood Pressure: 80 mmHg Measurements This Visit Height: 163 cm Weight: 72.57 kg Body Mass Index: 27.31 kg/m2 Problems List: Problem Onset Comments Glaucoma Patient Education Laceration Care, Adult A laceration is a cut that may go through all layers of the skin. The cut may also go into the tissue that is right under the skin. Some cuts heal on their own. Others need to be closed with stitches (sutures), yuridia, skin adhesive strips, or skin glue. Taking care of your injury lowers your risk of infection, helps your injury to heal better, and may prevent scarring. Supplies needed: ? Soap. ? Water. ? Hand candy spreader helper. ? Bandage (dressing). ? Antibiotic ointment. ? Clean towel. How to take care of your cut Wash your hands with soap and water before touching your wound or changing your bandage. If soap and water ar (more content not included)... Normal [facility] Vital Signs Date Time Vital Sign Value Performing Clinician Facility 03-03-2024 10: Body height 162.6 cm Clint Jean Baptiste DO Work Phone: [facility] 03-03-2024 10: Body mass index (BMI) [Ratio] 27.46 kg/m2 Clint Jean Baptiste DO Work Phone: [facility] 03-03-2024 10: Body weight 72.58 kg Clint Jean Baptiste DO Work Phone: [facility] 01-19-2024 11: Body height 162.56 cm DO Clint Jean Baptiste Work Phone: [facility] 01-19-2024 11:040 Body mass index (BMI) [Ratio] 28.8 kg/m2 DO Clint Jean Baptiste Work Phone: [facility] 01-19-2024 11:040 Body temperature 98 [degF] DO Clint Jean Baptiste Work Phone: [facility] 01-19-2024 11:040 Body weight 76.2 kg DO Clint Jean Baptiste Work Phone: [facility] 01-19-2024 11:22-0400 Diastolic blood pressure 91 mm[Hg] DO Clint Monicoillis Work Phone: [facility] 01-19-2024 11:22-0400 Heart rate 52 /min DO Clint Monicoillis Work Phone: [facility] 01-19-2024 11:22-0400 Respiratory rate 18 /min DO Clint Monicoillis Work Phone: [facility] 01-19-2024 11:22-0400 SaO2% (BldA) [Mass fraction] 99 % DO Clint Monicoillis Work Phone: [facility] 01-19-2024 11:22-0400 Systolic blood pressure 138 mm[Hg] DO Clint Monicoillis Work Phone: [facility] 11-17-2023 09:37-0400 Body height 162.56 cm DO Clint Monicoillis Work Phone: [facility] 11-17-2023 09:37-0400 Body mass index (BMI) [Ratio] 28.8 kg/m2 DO Clint Monicoillis Work Phone: [facility] 11-17-2023 09:37-0400 Body weight 76.2 kg DO Clint Monicoillis Work Phone: [facility] 11-17-2023 09:37-0400 Diastolic blood pressure 88 mm[Hg] DO Clint Monicoillis Work Phone: [facility] 11-17-2023 09:37-0400 Heart rate 60 /min DO Clint Monicoillis Work Phone: [facility] 11-17-2023 09:37-0400 Systolic blood pressure 136 mm[Hg] DO Clint Monicoillis Work Phone: [facility] 09-26-2023 10:34-0400 Body height 162.56 cm DO Clint Monicoillis Work Phone: [facility] 09-26-2023 10:34-0400 Body mass index (BMI) [Ratio] 28.8 kg/m2 DO Clint Grillis Work Phone: [facility] 09-26-2023 10:34-0400 Body weight 76.2 kg DO Clint Grillis Work Phone: [facility] 09-26-2023 10:34-0400 Diastolic blood pressure 82 mm[Hg] DO Clint Grillis Work Phone: [facility] 09-26-2023 10:34-0400 Heart rate 63 /min DO Clint Grillis Work Phone: [facility] 09-26-2023 10:34-0400 Respiratory rate 18 /min DO Clint Grillis Work Phone: [facility] 09-26-2023 10:34-0400 SaO2% (BldA) [Mass fraction] 97 % DO Clint Monicoillis Work Phone: [facility] 09-26-2023 10:34-0400 Systolic blood pressure 131 mm[Hg] DO Clint Grillis Work Phone: [facility] 06-25-2023 11:13-0500 Diastolic blood pressure 79 mm[Hg] DO Clint Grillis Work Phone: [facility] 06-25-2023 11:13-0500 Heart rate 78 /min DO Clint Monicoillis Work Phone: [facility] 06-25-2023 11:13-0500 Respiratory rate 20 /min DO Clint Grillis Work Phone: [facility] 06-25-2023 11:13-0500 SaO2% (BldA) [Mass fraction] 98 % DO Clint Grillis Work Phone: [facility] 06-25-2023 11:13-0500 Systolic blood pressure 142 mm[Hg] DO Clint Grillis Work Phone: [facility] 05-19-2023 11:15-0500 Body height 162.56 cm Sandro Chin Other [employer] Other 05-19-2023 11:15-0500 Body mass index (BMI) [Ratio] 28.56 kg/m2 Sandro Chin Other [employer] Other 05-19-2023 11:15-0500 Body weight 75.48 kg Sandro Chin Other [employer] Other 05-19-2023 11:15-0500 Diastolic blood pressure 75 mm[Hg] Sandro Chin Other [employer] Other 05-19-2023 11:15-0500 Systolic blood pressure 109 mm[Hg] Sandro Chin Other [employer] Other 03-24-2023 10:41-0400 Body temperature 97.4 [degF] DO Clint Alejandros Work Phone: [facility] 09-02-2022 08:36-0500 Body temperature 98 [degF] DO Isaías Adamowicz II Work Phone: [facility] 09-02-2022 08:36-0500 Body weight 76.6 kg DO Isaías Adamowicz II Work Phone: [facility] 09-02-2022 08:36-0500 Diastolic blood pressure 90 mm[Hg] DO Isaías Adamowicz II Work Phone: [facility] 09-02-2022 08:36-0500 Heart rate 65 /min DO Isaías Adamowicz II Work Phone: [facility] 09-02-2022 08:36-0500 Respiratory rate 20 /min DO Isaías Adamowicz II Work Phone: [facility] 09-02-2022 08:36-0500 SaO2% (BldA) [Mass fraction] 99 % DO Isaías Adamowicz II Work Phone: [facility] 09-02-2022 08:36-0500 Systolic blood pressure 147 mm[Hg] DO Isaías Adamowicz II Work Phone: [facility] 08-19-2022 08:43-0500 Body temperature 98.1 [degF] DO Isaías Adamowicz II Work Phone: [facility] 08-19-2022 08:43-0500 Body weight 74.9 kg DO Isaías Adamowicz II Work Phone: [facility] 08-19-2022 08:43-0500 Diastolic blood pressure 90 mm[Hg] DO Isaías Adamowicz II Work Phone: [facility] 08-19-2022 08:43-0500 Heart rate 60 /min DO Isaías Adamowicz II Work Phone: [facility] 08-19-2022 08:43-0500 Respiratory rate 20 /min DO Isaías Adamowicz II Work Phone: [facility] 08-19-2022 08:43-0500 SaO2% (BldA) [Mass fraction] 100 % DO Isaías Adamowicz II Work Phone: [facility] 08-19-2022 08:43-0500 Systolic blood pressure 143 mm[Hg] DO Isaías Adamowicz II Work Phone: [facility] 07-22-2022 09:43-0500 Body temperature 97.8 [degF] DO Isaías Adamowicz II Work Phone: [facility] 07-22-2022 09:43-0500 Body weight 75.7 kg DO Isaías Adamowicz II Work Phone: [facility] 07-22-2022 09:43-0500 Diastolic blood pressure 92 mm[Hg] DO Isaías Adamowicz II Work Phone: [facility] 07-22-2022 09:43-0500 Heart rate 67 /min DO Isaías Adamowicz II Work Phone: [facility] 07-22-2022 09:43-0500 Respiratory rate 16 /min DO Isaías Adamowicz II Work Phone: [facility] 07-22-2022 09:43-0500 SaO2% (BldA) [Mass fraction] 98 % DO Isaías Adamowicz II Work Phone: [facility] 07-22-2022 09:43-0500 Systolic blood pressure 149 mm[Hg] DO Isaías Adamowicz II Work Phone: [facility] 06-26-2022 12:23-0500 Body temperature 97.9 [degF] DO Clint Flavias Work Phone: [facility] 06-26-2022 12:23-0500 Diastolic blood pressure 79 mm[Hg] DO Clint Monicoillis Work Phone: [facility] 06-26-2022 12:23-0500 Heart rate 60 /min DO Clint Monicoillis Work Phone: [facility] 06-26-2022 12:23-0500 Respiratory rate 18 /min DO Clint Grillis Work Phone: [facility] 06-26-2022 12:23-0500 SaO2% (BldA) [Mass fraction] 97 % DO Clint Monicoillis Work Phone: [facility] 06-26-2022 12:23-0500 Systolic blood pressure 132 mm[Hg] DO Clint Grillis Work Phone: [facility] 06-24-2022 10:02-0500 Body weight 75 kg DO Clint Grillis Work Phone: [facility] 06-24-2022 09:08-0500 Body temperature 98 [degF] DO Clint Grillis Work Phone: [facility] 06-24-2022 09:08-0500 Body weight 75 kg DO Clint Monicoillis Work Phone: [facility] 06-24-2022 09:08-0500 Diastolic blood pressure 93 mm[Hg] DO Clint Monicoillis Work Phone: [facility] 06-24-2022 09:08-0500 Heart rate 61 /min DO Clint Monicoillis Work Phone: [facility] 06-24-2022 09:08-0500 Respiratory rate 16 /min DO Clint Monicoillis Work Phone: [facility] 06-24-2022 09:08-0500 SaO2% (BldA) [Mass fraction] 98 % DO Clint Monicoillis Work Phone: [facility] 06-24-2022 09:08-0500 Systolic blood pressure 137 mm[Hg] DO Clint Monicoillis Work Phone: [facility] 06-03-2022 08:08-0500 Body weight 74.1 kg DO Clint Monicoillis Work Phone: [facility] 06-03-2022 08:08-0500 Diastolic blood pressure 90 mm[Hg] DO Clint Monicoillis Work Phone: [facility] 06-03-2022 08:08-0500 Heart rate 56 /min DO Clint Monicoillis Work Phone: [facility] 06-03-2022 08:08-0500 Respiratory rate 20 /min DO Clint Monicoillis Work Phone: [facility] 06-03-2022 08:08-0500 SaO2% (BldA) [Mass fraction] 98 % DO Clint Monicoillis Work Phone: [facility] 06-03-2022 08:08-0500 Systolic blood pressure 137 mm[Hg] DO Clint Monicoillis Work Phone: [facility] 05-03-2022 14:40-0400 Body height 162.56 cm DO Clint Grillis Work Phone: [facility] Encounters Encounter Date Encounter Type Care Provider Facility Start: 03-25-2024 End: 03-25-2024 ambulatory DK RICHARDSON [facility] Start: 03-15-2024 End: 03-15-2024 ambulatory CLINT Ernst MONICOWILLIgnacio [facility] Start: 03-03-2024 End: 03-03-2024 ambulatory CLINT Ernst MONICODUGLAS [facility] Start: 03-03-2024 End: 03-03-2024 Office outpatient visit 15 minutes Clint Jean Baptiste DO Work Phone: [facility] Comment on above: History of colon can cer (Primary Dx) Start: 01-19-2024 End: 01-19-2024 ambulatory DO Clint Jean Baptiste Work Phone: [facility] Work Phone: Start: 01-19-2024 End: 01-19-2024 Patient encounter procedure DO Clint Jean Baptiste Work Phone: [facility] Work Phone: Start: 01-19-2024 Registered Recurring DO Leroy Alejandroignacio Work Phone: [facility] Work Phone: Start: 01-19-2024 ambulatory Sandro Chin Facility :[facility] Start: 01-15-2024 Non-patient / Non-visit DO Sherwin arleth Jean Baptiste Work Phone: [facility] [employer] Work Phone: Start: 11-26-2023 Non-patient / Non-visit DO Sherwin arleth Alejandros Work Phone: [facility] [employer] Work Phone: Start: 11-17-2023 Patient encounter status DO Araseli Jean Baptiste Work Phone: [facility] Start: 11-17-2023 End: 11-17-2023 ambulatory DO Clint Jean Baptiste Work Phone: [facility] Work Phone: Start: 11-17-2023 End: 11-17-2023 Patient encounter procedure DO Clint Jean Baptiste Work Phone: [facility] Work Phone: Start: 09-26-2023 Registered Recurring DO Leroy Jean Baptiste Work Phone: [facility] Work Phone: Start: 09-26-2023 End: 09-26-2023 ambulatory DO Clint Jean Baptiste Work Phone: [facility] Work Phone: Start: 09-26-2023 End: 09-26-2023 Patient encounter procedure DO Clint Jean Baptiste Work Phone: [facility] Work Phone: Start: 09-18-2023 Non-patient / Non-visit DO Sherwin Jean Baptiste Work Phone: [facility] [employer] Work Phone: Start: 05-19-2023 End: 05-19-2023 ambulatory Sandro Chin Other [facility] [employer] Other Start: 05-19-2023 Office outpatient vi sit 15 minutes Sandro Chin [facility] Start: 11-16-2022 End: 11-17-2022 ambulatory ISAÍAS JORDAN Facility:[facility] Start: 11-02-2022 End: 11-03-2022 ambulatory ISAÍAS JORDAN Facility:[facility] Start: 10-19-2022 End: 10-20-[address] SANDRO CHIN Facility:[facility] Start: 09-14-2022 End: 09-15-2022 ambulatory ISAÍAS JORDAN Facility:[facility] Start: 09-02-2022 End: 09-02-2022 ambulatory NON STAFF [facility] Work Phone: Start: 09-02-2022 End: 09-02-2022 Registered Recurring DO Isaías Jordan II Work Phone: [facility] Work Phone: Start: 09-01-2022 End: 09-01-[address] SANDRO CHIN Facility:[facility] Start: 08-31-2022 End: 09-01-2022 ambulatory ISAÍAS JORDAN Facility:[facility] Start: 08-19-2022 End: 08-19-2022 ambulatory NON STAFF [facility] Work Phone: Start: 08-19-2022 End: 08-19-2022 Registered Recurring DO Isaías Jordan II Work [facility]: [facility] Work Phone: Start: 08-16-2022 End: 08-17-2022 ambulatory ISAÍAS JORDAN Facility:[facility] Start: 08-03-2022 End: 08-04-2022 ambulatory ISAÍAS JORDAN Facility:[facility] Start: 07-22-2022 End: 07-22-2022 ambulatory NON STAFF [facility] Work Phone: Start: 07-22-2022 End: 07-22-2022 Registered Recurring DO Isaías Jordan II Work Phone: [facility] Work Phone: Start: 07-20-2022 End: 07-21-2022 ambulatory ISAÍAS JORDAN Facility:[facility] Start: 07-06-2022 End: 07-06-2022 ambulatory DO Clint Jean Baptiste Work Phone: [facility] Work Phone: Start: 07-06-2022 End: 07-06-2022 Departed Referred DO Clint Jean Baptiste Work Phone: [facility] [place] Work Phone: Start: 06-26-2022 Registered Recurring DO Leroy Jean Baptiste Work Phone: [facility] Work [facility]: Start: 06-24-2022 End: 06-24-2022 ambulatory DO Clint Marcwillignacio Work Phone: [facility] Work Phone: Start: 06-24-2022 End: 06-24-2022 Registered Recurring DO Clint Jean Baptiste Work [facility]: [facility] Start: 06-24-2022 End: 06-24-2022 ambulatory DO Clint Jean Baptiste Work Phone: [facility] Work Phone: Start: 06-24-2022 End: 06-24-2022 Registered Recurring DO Clint Jean Baptiste [facility]: [facility] Start: 06-22-2022 End: 06-23-2022 ambulatory ISAÍAS JORDAN Facility:[facility] Start: 06-08-2022 End: 06-09-2022 ambulatory ISAÍAS JORDAN Facility:[facility] Start: 06-03-2022 End: 06-03-2022 ambulatory DO Clint Klever Marcwillignacio Work Phone: [facility] Work Phone: Start: 06-03-2022 End: 06-03-2022 Registered Recurring DO Clint Jean Baptiste Work Phone: [facility] Start: 06-01-2022 End: 06-02-2022 ambulatory ISAÍAS JORDAN Facility:[facility] Start: 05-22-2022 End: 05-23-2022 ambulatory ISAÍAS JORDAN Facility:[facility] Start: 05-21-2022 Encounter for preprocedural laboratory examination DR CLINT JEAN BAPTISTE . [facility] Start: 05-18-2022 End: 05-19-[address] CLINT JEAN BAPTISTE . Facility:[facility] Start: 05-18-2022 End: 05-19-2022 Encounter for preprocedural laboratory examination DR CLINT JEAN BAPTISTE . Facility:[facility] Start: 04-10-2022 End: 04-13-2022 Evaluation and management of inpatient DR SANDRO CHIN Facility:[facility] Start: 04-08-2022 End: 04-09-[address] CLINT JEAN BAPTISTE . Facility:[facility] Start: 04-04-2022 Encounter for preprocedural cardiovascular examination DR CLINT JEAN BAPTISTE . [facility] Start: 04-04-2022 Encounter for preprocedural laboratory examination DR CLINT JEAN BAPTISTE . [facility] Start: 04-02-2022 End: [address] CLINT JEAN BAPTISTE . Facility:[facility] Start: 04-02-2022 End: 2022 Encounter for preprocedural cardiovascular examination DR CLINT JEAN BAPTISTE . Facility:[facility] Start: 03-27-2022 End: 03-28-[address] CLINT JEAN BAPTISTE . Facility:[facility] Start: 03-13-2022 End: 03-13-[address] CLINT JEAN BAPTISTE . Facility:[facility] Start: 03-09-2022 End: 03-10-[address] CLINT JEAN BAPTISTE . Facility:[facility] Start: 01-09-2022 End: 01-10-[address] SANDRO CHIN Facility: Procedures Date Procedure Procedure Detail Performing Clinician Start: 01-15-2024 Carcinoembryonic antigen cea DO Clint Jean Baptiste Work Phone: Comment on above: Nonsmokers <3.9 Smokers <5.6[employer] Electrochemiluminescence Immunoassay(ECLIA)Values obtained with different assay methods or kitscannot be used interchangeably. Results cannot beinterpreted as absolute evidence of the presence orabsence of malignant disease.Performed at: [address] [id number] Director: Edilson Saunders PhD, Phone: [phone] Start: 09-18-2023 Carcinoembryonic antigen cea DO Clint Jean Baptiste Work Phone: Comment on above: Nonsmokers <3.9 Smokers <5.6[employer] Electrochemiluminescence Immunoassay(ECLIA)Values obtained with different assay methods or kitscannot be used interchangeably. Results cannot beinterpreted as absolute evidence of the presence orabsence of malignant disease.Performed at: - [facility] [id number] [place], [place] [id number] Director: Edilson Saunders PhD, Phone: [phone] Start: 05-07-2023 Colonoscopy Clint Jean Baptiste DO Work Phone: Start: 03-20-2023 Carcinoembryonic antigen cea Sandro jaimes Comment on above: Result Comment: PERFORMED BY: [facility] [address] [place] [address] PATHOLOGIST SURVEY RODMAN DIAMANTE DENNY M.D. Performed By: #### C BC, CMP, CEA #### [address] Start: 04-10-2022 Resection of Sigmoid Colon, Open Approach ISAÍAS JORDAN Plan of Treatment Date Care Activity Detail Author Start: 05-07-2026 Screening for malignant neoplasm of colon Colonoscopy [facility] Start: 03-03-2025 Adult BMI Screening Adult BMI Screening [facility] Start: 03-03-2025 Tobacco Screening Tobacco Screening [facility] Start: 03-15-2024 End: 03-15-2024 Patient encounter procedure 03/15/2024 1:30 PM EDT Office Visit [facility] [address] [place] [id number] Clint Jean Baptiste DO [address] [place], [place] [id number] [facility] Start: 03-07-2024 Influenza vaccination Influenza Vaccine [facility] Start: 01-19-2024 Patient referral [facility] Work Phone: Start: 11-17-2023 Patient referral [facility] Work Phone: Start: 03-07-2023 COVID-19 Vaccine ( season) COVID-19 Vaccine () [facility] Start: 11-18-2022 [facility] Start: 11-18-2022 [facility] Start: 11-04-2022 [facility] Start: 10-21-2022 [facility] Start: 10-21-2022 [facility] Start: 10-21-2022 [facility] Start: 09-23-2022 [facility] Start: 09-23-2022 [facility] Start: 09-16-2022 [facility] Start: 09-02-2022 [facility] Start: 08-19-2022 [facility] Start: 08-19-2022 [facility] Start: 08-05-2022 [facility] Start: 07-22-2022 [facility] Start: 07-09-2022 [facility] Start: 06-26-2022 [facility] Start: 06-24-2022 [facility] Start: 06-10-2022 Comprehensive metabolic 2000 panel - Serum or Plasma [facility] Start: 06-10-[address] [facility] Start: 06-10-2022 [facility] Start: 06-10-2022 [facility] Start: 06-03-2022 [facility] Start: 05-27-2022 [facility] Start: 1987 Screening for malignant neoplasm of cervix Pap Smear [facility] Start: 1985 Administration of varicella zoster vaccine Zoster (Shingles) Vaccine (1 of 2) [facility] Start: 1985 DTaP,Tdap and Td Vaccines (1 - Tdap) DTaP,Tdap and Td Vaccines (1 - Tdap) [facility] Start: 1984 Adult BMI Follow Up Plan Adult BMI Follow Up Plan [facility] Start: 1978 Depression Screening Depression Screening [facility] Alanine aminotransfe rase [Enzymatic activity/volume] in Serum or Plasma by No addition of P-5'-P [facility] Work Phone: Alanine aminotransfe rase [Enzymatic activity/volume] in Serum or Plasma by No addition of P-5'-P [facility] Albumin [Mass/volume ] in Serum or Plasma [facility] Work Phone: Albumin [Mass/volume ] in Serum or Plasma [facility] Albumin/Globulin ratio [facility] Work Phone: Albumin/Globulin ratio [facility] Alkaline phosphatase [Enzymatic activity/volume] in Serum or Plasma [facility] Work Phone: Alkaline phosphatase [Enzymatic activity/volume] in Serum or Plasma [facility] Anion gap measurement [facility] Work Phone: Anion gap measurement [facility] Aspartate aminotrans ferase [Enzymatic activity/volume] in Serum or Plasma [facility] Work Phone: Aspartate aminotrans ferase [Enzymatic activity/volume] in Serum or Plasma [facility] Basophil count [facility] Work Phone: Basophil percent dif ferential count [facility] Work Phone: Bilirubin.total [Mas s/volume] in Serum or Plasma [facility] Work Phone: Bilirubin.total [Mas s/volume] in Serum or Plasma [facility] Calcium [Mass/volume ] in Serum or Plasma [facility] Work Phone: Calcium [Mass/volume ] in Serum or Plasma [facility] Carbon dioxide, tota l [Moles/volume] in Serum or Plasma [facility] Work Phone: Carbon dioxide, tota l [Moles/volume] in Serum or Plasma [facility] Carcinoembryonic Ag [Mass/volume] in Serum or Plasma [facility] Chloride [Moles/volu me] in Serum or Plasma [facility] Work Phone: Chloride [Moles/volu me] in Serum or Plasma [facility] Choriogonadotropin ( test) [Presence] in Urine [facility] Comprehensive metabo lic 1999 panel - Serum or Plasma [facility] Comprehensive metabo lic 1999 panel - Serum or Plasma [facility] Comprehensive metabo lic 1999 panel - Serum or Plasma [facility] Comprehensive metabo lic 1999 panel - Serum or Plasma [facility] Comprehensive metabo lic 1999 panel - Serum or Plasma [facility] Comprehensive metabo lic 1999 panel - Serum or Plasma [facility] Comprehensive metabo lic 1999 panel - Serum or Plasma [facility] Comprehensive metabo lic 1999 panel - Serum or Plasma [facility] Comprehensive metabo lic 1999 panel - Serum or Plasma [facility] Comprehensive metabo lic 1999 panel - Serum or Plasma [facility] Comprehensive metabo lic 1999 panel - Serum or Plasma [facility] Comprehensive metabo lic 1999 panel - Serum or Plasma [facility] Creatinine and Glome rular filtration rate.predicted panel - Serum, Plasma or Blood [facility] Work Phone: Creatinine and Glome rular filtration rate.predicted panel - Serum, Plasma or Blood [facility] CT Abdomen and Pelvi s W contrast IV [facility] CT Abdomen and Pelvi s W contrast IV [facility] CT Abdomen and Pelvi s W contrast IV [facility] CT Abdomen and Pelvi s W contrast IV [facility] CT Abdomen [facility] Pelvi s W contrast IV [facility] CT Chest W contrast IV [facility] CT Chest W contrast IV [facility] CT Chest W contrast IV [facility] CT Chest W contrast IV [facility] CT Chest W contrast IV [facility] Eosinophil percent differential count [facility] Work Phone: Eosinophils [#/volum e] in Blood [facility] Work Phone: Erythrocyte mean cor puscular volume determination [facility] Work Phone: Erythrocytes [#/volu me] in Blood [facility] Work Phone: Globulin [Mass/volum e] in Serum [facility] Work Phone: Globulin [Mass/volum e] in Serum [facility] Glucose [Mass/volume ] in Serum or Plasma [facility] Work Phone: Glucose [Mass/volume ] in Serum or Plasma [facility] Hematocrit [Volume F raction] of Blood [facility] Work Phone: Hemoglobin [Mass/vol ume] in Blood [facility] Work Phone: Hemoglobin distribut ion, width determination [facility] Work Phone: Leukocytes [#/volume ] in Blood [facility] Work Phone: Lymphocyte count [facility] Work Phone: Lymphocyte percent differential count [facility] Work Phone: Magnesium measurement [facility] Magnesium measurement [facility] Magnesium measurement [facility] Mean corpuscular hem oglobin concentration determination [facility] Work Phone: Mean corpuscular hem oglobin determination [facility] Work Phone: Measurement of renal function [facility] Work Phone: Measurement of renal function [facility] Monocyte count [facility] Work Phone: Monocyte percent dif ferential count [facility] Work Phone: Neutrophil count [facility] Work Phone: Neutrophil percent differential count [facility] Work Phone: Patient referral [facility] Work Phone: Platelet mean volume determination [facility] Work Phone: Platelets [#/volume] in Blood [facility] Work Phone: Potassium [Moles/vol ume] in Serum or Plasma [facility] Work Phone: Potassium [Moles/vol ume] in Serum or Plasma [facility] Protein [Mass/volume ] in Serum or Plasma [facility] Work Phone: Protein [Mass/volume ] in Serum or Plasma [facility] Sodium [Moles/volume ] in Serum or Plasma [facility] Work Phone: Sodium [Moles/volume ] in Serum or Plasma [facility] Urea nitrogen [Mass/ volume] in Serum or Plasma [facility] Work Phone: Urea nitrogen [Mass/ volume] in Serum or Plasma [facility] Payers Date Payer Category Payer Unknown KAYLEY NARAYANAN SS (PPO) [id number] 2022-Present [phone] [address] [place] [address] [id number] 2022 Self-pay 2022 Unknown [id number] 2019 Unknown [id number] 1966 Unknown [id number] 2.16.840.1.250259.3.579.2.593 1966 Unknown [id number] 2.16.840.1.915953.3.579.2.593 1966 Unknown [id number] 2.16.840.1.592784.3.579.2.593 1966 Unknown [id number] 2.16.840.1.451619.3.579.2.593 1966 Unknown [id number] 2.16.840.1.351956.3.579.2.593 1966 Unknown [id number] 2.16.840.1.531094.3.579.2.593 1966 Unknown [id number] 2.16.840.1.079234.3.579.2.593 1966 Unknown [id number] 2.16.840.1.122033.3.579.2.59 1966 Unknown [id number] 2.16.840.1.841162.3.579.2.59 1966 Unknown [id number] 2.16.840.1.572586.3.579.2.59 1966 Unknown [id number] 2.16.840.1.369052.3.579.2.59 1966 Unknown [id number] 2.16.840.1.518674.3.579.2.59 1966 Unknown [id number] 2.16.840.1.261867.3.579.2.59 1966 Unknown [id number] 2.16.840.1.029790.3.579.2.59 1966 Unknown [id number] 2.16.840.1.561074.3.579.2.593 1966 Unknown [id number] 2.16.840.1.025838.3.579.2.59 1966 Unknown [id number] 2.16.840.1.217791.3.579.2.593 1966 Unknown [id number] 2.16.840.1.844626.3.579.2.59 1966 Unknown [id number] 2.16.840.1.178284.3.579.2.593 1966 Unknown [id number] 2.16.840.1.590335.3.579.2.593 1966 Unknown [id number] 2.16.840.1.305657.3.579.2.593 1966 Unknown [id number] 2.16.840.1.676402.3.579.2.593 1966 Unknown [id number] 2.16.840.1.764198.3.579.2.593 1966 Unknown [id number] 2.16.840.1.296352.3.579.2.593 1966 Unknown [id number] 2.16.840.1.800462.3.579.2.1286 1966 Unknown [id number] 2.16.840.1.091032.3.579.2.1286 1966 Unknown [id number] 2.16.840.1.677114.3.579.2.128 Unknown [id number] Unknown [id number] 2.16.840.1.903925.3.579.2.531 Social History Date Type Detail Facility Start: 05-27-2022 End: 06-25-2023 Tobacco smoking status CTIS Never smoked tobacco (finding) [facility] Start: 1965 Sex Assigned At Female [facility] Start: 05-01-2023 End: 03-03-2024 Sex Assigned At [facility] Other Start: 04-19-2022 Tobacco smoking status [facility] Ex-smoker [facility] History of tobacco use Current [facility] History of tobacco use [facility] Start: 04-19-2022 Tobacco use and exposure Smokeless tobacco non-user [facility] Start: 03-03-2024 Alcoholic beverage intake Current drinker of alcohol (finding) [facility] Start: 05-01-2023 End: 03-03-2024 History of Social function [facility] Within the past 12 months we worried whether our food would run out before we got money to buy more. Never True [facility] Start: 04-19-2022 Tobacco Comment smoked when patient was 18 for 6 months [facility] Start: 05-01-2023 Alcohol Comment occasionally [facility] Start: 1965 Sex assigned at Not on file [facility] Goals Date Patient Goal Desired Activity /State Clinical Notes 04-21-2021 to 03-03-2024 Clint Ernst Ita, DO - 03/03/2024 10:15 AM EDT Note Date & Type Note Facility 03-03-2024 History of Presen t illness Narrative Images from the original note were not included. [facility] [id number] [id number] Progress NOTE CHIEF COMPLAINT Chief Complaint Patient presents with PORT REMOVAL PORT REMOVAL, PATIENT HOPING TO HAVE PROCEDURE DONE 03/24/24, REFERRED BY DR JORDAN, PATIENT WANTED TO WAIT TO HAVE PROC DONE IN MAR SO WAITED FOR OV UNTIL FEBRUARY Marysol Gardner is a 58 y.o. female presents today requesting removal of her port as recommended by her oncologist Dr. Jordan She denies any complaints of abdominal pain and has a history of colon cancer resected by me April 10, 2022 at the [facility]. Her last colonoscopy was in May, and was normal. 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 MEDICATION Current Outpatient Medications: brimonidine (ALPHAGAN) 0.2 % ophthalmic solution, Administer 0.2 drops to both eyes in the morning and at bedtime., Disp: , Rfl: celecoxib (CeleBREX) 200 mg capsule, TAKE 1 CAPSULE BY MOUTH ONCE DAILY NEEDED, Disp: , Rfl: cholecalciferol, vitamin D3, (VITAMIN D3 ORAL), Take 1,000 mg by mouth., Disp: , Rfl: dorzolamide-timoloL (COSOPT) 22.3-6.8 mg/mL ophthalmic solution, Administer 6.8 drops to both eyes in the morning and at bedtime., Disp: , Rfl: glucosamine-chondroitin 500-400 mg tablet, Take 1 tablet by mouth 3 (three) times a day., Disp: , Rfl: latanoprost (XALATAN) 0.005 % ophthalmic solution, Administer 0.005 drops to both eyes nightly., Disp: , Rfl: mv-mn/om3/dha/epa/fish/lut/katheryn (OCUVITE ADULT 50 PLUS ORAL), Take by mouth daily., Disp: , Rfl: omega 3-dqo-zzx-fish oil (Fish OiL) 300-1,000 mg capsule, Take by mouth., Disp: , Rfl: omeprazole (PriLOSEC) 20 mg capsule, PATIENT REPORTS NEEDED , Disp: , Rfl: ALLERGY Allergies Allergen Reactions Hydrocodone Nausea And Vomiting Patient reports it was many years ago Codeine GI Disturbance MEDICAL HISTORY Past Medical History: Diagnosis Date Colon cancer ([facility] Female pelvic congestion syndrome 02/20/2023 Glaucoma of both eyes bleeding SURGICAL HISTORY Past Surgical History: Procedure Laterality Date SECTION HERNIA REPAIR inguinal hernia LEFT COLECTOMY SIGMOID COLON RESECTION BY DR JEAN BAPTISTE, AT [facility] WISDOM TOOTH EXTRACTION SOCIAL HISTORY Social History Socioeconomic History Marital status: Spouse name: Not on file Number of children: Not on file Years of education: Not on file Highest education level: Not on file Occupational History Not on file Tobacco Use Smoking status: Former Types: Cigarettes Smokeless tobacco: Never Tobacco comments: smoked when patient was 18 for 6 months Vaping Use Vaping status: Never Used Substance and Sexual Activity Alcohol use: Yes Comment: occasionally Drug use: Not Currently Sexual activity: Not Currently Partners: Male Other Topics Concern Not on file Social History Narrative Not on file Social Determinants of Health Financial Resource Strain: Not on file Food Insecurity: Unknown (05/01/2023) Hunger Screening Food Insecurity - Worry: Never True Food Insecurity - Inability: Not on file Transportation Needs: Not on file Physical Activity: Not on file Stress: Not on file Social Connections: Not on file Interpersonal Safety: Not on file Housing Instability: Not on file FAMILY HISTORY Family History Problem Relation Age of Onset Hypertension Mother Diabetes Mother Dementia Mother Hypertension Father Parkinsonism Father Breast cancer Maternal Aunt REVIEW OF SYSTEMS: Constitutional: Denies fevers, denies recent illnesses. Rest review of systems negative except as above. She is complaining of some right-sided neck pain which she believes is secondary to having new glasses and having to look up and down at the computer while at work. PHYSICAL EXAM Constitutional: She is oriented to person, place, and time. Vital signs are normal. She appears well-developed and well-nourished. Chest: There is a healed incision above the port in the left anterior chest wall easily palpable Neurological: She is alert and oriented to person, place, and time. Skin: Skin is warm, dry and intact. Psychiatric: She has a normal mood and affect. Her speech is normal and behavior is normal. Cognition and memory are normal. IMPRESSION History of colon cancer status post sigmoid colon resection April 2022 ASSESSMENT & PLAN Return to the office for removal of port under local anesthesia. Risks benefits alternatives to procedure may include infection bleeding scar formation pain. She was offered Valium 5 mg to take it 2 hours prior to the procedure and have someone drive her to and from the office. Evaluation included: Preparing to see the patient (e.g., review of tests) Obtaining and/or reviewing separately obtained history Performing a medically appropriate examination and/or evaluation Counseling and educating the patient/family/caregiver Referring and communicating with other health managed care analyst History of colon cancer [Z85.038] Clint Jean Baptiste DO This note was created with the assistance of a speech recognition program. While intending to generate a timely document that accurately reflects the content of the visit, no guarantee can be provided that every grammatical or spelling mistake has been or will be identified or corrected. Thank you for your understanding. documented in this encounter [facility] 05-19-2023 Evaluation note Encounter Date Diagnosis Assessment Notes May, Acute sinusitis, unspecified (ICD-10 - J01.90) Sinus infections can be triggered by a secondary infection from a viral URI or even seasonal allergies. Take medications as directed. Use saline nasal spray prior to presciption nasal spray. Take medications as directed, and complete all doses of medication even if you start to feel better. Patient advised to follow up with PCP if symptoms persist or worsen. Patient verbalized understanding and agreement with treatment plan. May, Other specified bacterial agents as the cause of diseases classified elsewhere (ICD-10 - B96.89) May, BPV (benign positional vertigo), unspecified laterality (ICD-10 - H81.10) order for PT printed and given to pt. [employer] Other 09-18-2023 Progress note Author Isaías Jordan [facility] March 24, 2023 11:05am Note Date/Time March 24, 2023 10:55am [facility] at [address] [address] Hem/Onc Follow Up Note - OP Signed Patient: Marysol Gardner MR#: [id number] : 1965 Acct:[id number] Age/Sex: 57 / F Type: REG RCR Copies to: MD Clint Bernstein,DO~ Date of Service: 03/24/2023 Time of Service: 10:54 - Assessment & Plan (1) Colon cancer Plan: 1.) T4aN2A Stage IIIc colon adenocarcinoma. discussed very high risk for recurrence. CEA level - 8.1 on labs down to 3 range by mar 2023. completed 10 cycles adjuvant FOLFOX from may 2022 through october 2022. she required significant dose reductions for a few reasons by the end. CT A/p was negative in february 2023. will continue to follow with imaging every 3 to 6 months for 2 years then yearly through 5 years. We chose not to monitor signatera, this has never been sent. discussed colonoscopy, will repeat once she has completed chemotherapy. Chemotherapy induced neuropathy Her pins and needles resolved by mar 2023. very minimal residual numbness. (2) Chemotherapy-induced peripheral neuropathy (3) Abnormal LFTs (4) Encounter for chemotherapy management Follow Up Instructions: ct c/a/p with contrast in may/jun. cbc, cmp, cea prior to f/u. f/u with me or prototype special build in may/jun. renew her celebrex prescription. - History of Present Illness Chief Complaint: Patient is here for a 5 month follow up with labs and outside notes and radiology for review. 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 She began having irregular bowel movements in September 2021. She also noted increasing bilateral lower abdominal pain. She also had about a 10 pound weight loss prior to surgery. Her only other medical history is glaucoma. Primary care provider is Dr. Jose Guadalupe Raya. Outpatient medications include a few eyedrops, plus Ocuvite. Colonoscopy was performed on March 13, 2022, scope could not be passed [id number] cm due to a tumor in the sigmoid colon. Almost obstructing and circumferential. A CT of the abdomen and pelvis from March 27, 2022 with IV contrast noted normal lung bases, asymmetric thickening of the right lateral wall of the mid sigmoid colon and a nearby 2 cm segment of mild circumferential wall thickening of the mid and distal descending colon, most likely peristalsis. No obvious adenopathy. She had a sigmoid colon resection on April 10, 2022. 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 T4aN2a Stage IIIC. Mismatch repair proteins were all intact. Extranodal extension wasnot seen. Angioinvasion is present. Margins of previous appear free of neoplasm. Grade 2, 3.3 cm lesion. No evidence of perineural invasion. This had invaded through the colon and into the visceral peritoneum. The tumor extended deeply into the serosal adipose tissue to the inked serosal surface. 05/27/22 she had some confusion about schedule of chemotherapy. she will start her FOLFOXtoday. she is doing well overall. she is here with her who has a traumatic brain injury from november years agobut able to take care of himself and walk with a cane. she lives with 16 year old son. 06/03/2022: Here for 8 day toxicity check after initiation of adjuvant FOLFOX chemotherapy for Stage IIIc colon cancer. Had a little bit of cold sensitivity, decreased appetite, fatigue and loose stool. Overall, very mild - tolerable; took Zofran x 1. 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 Labs reviewed on patient's chart from [place] - no significant cytopenias or electrolyte, renal/hepatic issues. 06/24/22 she is doing ok overall. she had a bit harder time with c2. loose stool for a week or two afterwards, mild headaches. she has neuropathy that persists slightly even today. She is due for c3 today. 07/22/2022: She is doing okay - fatigued in general; has a couple days of loose bowels and mild nausea. Cold induced neuropathy x1 week following treatment; then resolves. Still working Denies focal signs/symptoms of infection; no weight loss; appetite stable 08/19/2022: Patient is here for follow up prior to Cycle 7 adjuvant FOLFOX Mild neuropathy; mostly cold induced - usually occurs 3-4 days after pump DC andthen resolves Appetite is stable; no weight loss She is primarily concerned about her liver tests; she is noted to have gradual increase of LFT's ANC - 900; platelet count 92,000. No focal signs/symptoms of infection 09/02/22 She is doing well overall. her neuropathy has improved. 10/21/22 She just got back from visiting her mother and family in [place]. She has no neuropathy at all. last treatment was 09/23/22. 03/24/23 She is feeling well overall. SHe feels strong again. She has finally regained her strength, it took a long time. She had a ct a/p in february in ER for abdomina/back pain. Noted a 11mm R hepaticlesion stable since 2021 likely hemangioma. also 12mm L upper pole renal stone. Also engorged periuterine vessels. She has seen head still operator. she had transvaginal ultrasound. This will be monitored. Her ADDING MACHINE MECHANIC has offered her a dexa scan. Her colonoscopy scheduled with Dr. Jean Baptiste for May 07. - Physical Exam ECOG PS: 1 (fatigue) Pain: 0/10 General : patient is alert and oriented to person place and time, no acute distress. HEENT; oral mucosa pink/moist; no lesions/exudate; no JVD or thyromegaly. Lymph: no cervical, supraclavicular, axillary adenopathy. Heart: regular rate and rhythm no murmurs rubs or gallops. Abdomen: soft nontender nondistended, no hepatosplenomegaly. abdomen well healed. Lungs: cta bl, no wheezes, rales, rhonchi. Extremities: no clubbing cyanosis. Neurological: no focal/sensory deficits; alert and oriented x 3. Goal of Treatment: Curative - Time with Patient Coordination of Care & Counseling Time: Greater than 50% of time spent with patient was for coordination of care (as documented) and sukl-cg-ylak counseling of patient and/or family. [facility] - Medical History Medical History: Medical History (Last Updated 10/21/22 @ 08:36 by Ember Rodriguez) COVID September 2022 Glaucoma of both eyes bleeding - Surgical History Surgical History: Surgical History (Last Updated 05/02/22 @ 08:51 by Ember Rodriguez) History of History of hernia repair History of wisdom tooth extraction S/P colon resection Apr 2022 - Family History Family History: Family History (Last Updated 05/03/22 @ 14:37 by Ember Rodriguez) Mother Diabetes Dementia Hypertension Myocardial infarction Glaucoma Father Parkinsonism Hypertension Myocardial infarction Glaucoma - Social History Smoking Status: Never smoker Substance Use Type: None Additional Data - Additional Objective Data Height/Weight: Height 5 ft 4 in Weight 76.34 kg BSA for Today's Weight 1.86 Vital Signs: 03/24/23 10:41 Temperature 97.4 F L Pulse Rate [Left Brachial] 86 Respiratory Rate 20 Blood Pressure [Left Arm] 133/86 02 Sat by Pulse Oximetry 98 Oxygen Delivery Method Room Air Distress Screening: RN Distress Screening Start: 05/03/22 14:29 Freq: Status: Active Protocol: Document 08/19/22 10:11 AG (Rec: 08/19/22 10:12 AG [id number]) Distress Screening Distress Score: 4 Day to Day Concerns Insurance,Money Physical Concerns Feeling tired or a lack of energy Emotional Concerns Worry,Feeling uncertain about the future Distress Screening Total 4 Distress score of 4 or more discussed Yes with patient? - Lab Results Diagram of Most Recent CBC and CMP 03/20/23 11:17 03/20/23 11:17 Labs - Last 7 Days 03/20/23 11:17: Carcinoembryonic Ag 3.3 H 03/20/23 11:17: PHA Creatinine Clear 86.44, Sodium 139, Potassium 4.3, Chloride 105, Carbon Dioxide 27.3, Anion Gap 11.0, BUN 16, Creatinine 0.73, Est GFR (CKD-EPI) > 60.0, Glucose 80, Calcium 10.3, Total Bilirubin 0.8, AST 21, ALT 16, Alkaline Phosphatase 88, Total Protein 7.3, Albumin 4.4, Globulin 2.9, Albumin/Globulin Ratio 1.5 03/20/23 11:17: Corrected WBC 5.1, Uncorrected WBC Count 5.1, RBC 4.26, Hgb 13.8, Hct 40.8, MCV 95.7, MCH 32.3, MCHC 33.7, RDW 13.7, Plt Count 198, MPV 8.9,Neut % (Auto) 47.6, Lymph % (Auto) 39.4, [place] % (Auto) 9.0, Eos % (Auto) 2.8, Baso % (Auto) 1.2, Nucleat RBC Rel Count 0.1, Neut # (Auto) 2.4, Lymph # (Auto) 2.0, [place] # (Auto) 0.5, Eos # (Auto) 0.1, Baso # (Auto) 0.1 - Home Medications and Allergies Allergies/Adverse Reactions: Allergies hydrocodone Allergy (Verified 07/22/22 09:43) Nausea Home Medications: Home Medications brimonidine 0.2 % eye drops 1 drp Eye-Both BID 05/02/22 [History Confirmed 03/24/23] dorzolamide 22.3 mg-timolol 6.8 mg/mL eye drops 1 drp Eye-Both BID 05/02/22 [History Confirmed 03/24/23] latanoprost 0.005 % eye drops 1 drp Eye-Both QPM 05/02/22 [History Confirmed 03/24/23] acetaminophen 500 mg tablet 1,000 mg PO DAILY PRN Pain 05/03/22 [History Confirmed 03/24/23] ascorbic acid (vitamin C) 1,000 mg capsule,extended release 1 cap PO DAILY 05/27/22 [History Confirmed 03/24/23] cholecalciferol (vitamin D3) 25 mcg (1,000 unit) capsule 25 mcg PO DAILY 05/27/22 [History Confirmed 03/24/23] omeprazole magnesium 10 mg oral suspension,delayed release (Prilosec) 20 mg PO DAILY #60 ea 08/05/22 [Rx Confirmed 03/24/23] carica papaya (Papaya Enzyme tablet) 1 tab PO DAILY 08/19/22 [History Confirmed 03/24/23] Dictated By: Isaías Jordan II, DO DD/ 1054 Signed By: <Electronically signed by Isaías Jordan II, DO> 03/24/23 1105 [facility] Work Phone: [phone]) 299-789504-17-2023 Progress note Author Isaías Jordan [facility] October 21, 2022 8:50am Note Date/Time October 21, 2022 8:3 8am [facility] [place] [address] Hem/Onc Follow Up Note - OP Signed Patient: Marysol Gardner MR#: [id number] : 1965 Acct:[id number] Age/Sex: 57 / F Type: REG RCR Copies to: MD Clint Bernstein DO~ Date of Service: 10/21/2022 Time of Service: 08:36 - Assessment & Plan (1) Colon cancer Plan: 1.) T4aN2A Stage IIIc colon adenocarcinoma. --pretreatment CT scan with no evidence metastatic disease. --consented for 6 months adjuvant FOLFOX chemotherapy. discussed very high risk for recurrence. --will re-image when she has completed adjuvant therapy. --CEA level - 8.1 on labs Was previously offered signatera testing and declined for now. will consider when she stops her chemotherapy. Cycle 1, Day 1 on 05/27/2022. Cycle 2, Day 1: 06/10/2022 Cycle 3, Day 1 06/24/2022 Cycle 4, Day 1: 07/09/2022 Cycle 5, Day 1: 07/22/2022 Cycle 6, Day 1: 08/05/2022 Cycle 7, Day 1: 08/19/2022 - (d/w Dr. Jordan - will dose reduce Oxaliplatin by25% and hold bolus 5FU today); no recommendations for growth factor; due to elevated transaminases; neutropenia and thrombocytopenia c8d1 on 09/02/22 (continue to hold the 5fu bolus, raise oxali to 100%). her anc was 1.1 prior to today and ast/alt normal. c9d1 on 09/23/22 continue to hold 5fu bolus. 100% oxaliplatin c10 on 10/21/22 full dose everything. discussed colonoscopy, will repeat once she has completed chemotherapy. 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 - mild - present x 1 week; then resolves by chemotherapy day 3.) Abnormal LFTs (2) Chemotherapy-induced peripheral neuropathy (3) Abnormal LFTs (4) Encounter for chemotherapy management Follow Up Instructions: continue folfox. f/u in [address] c/a/p with contrast. cbc, cmp, cea. - History of Present Illness Chief Complaint: Patient is here for a one month follow up with outside labs forreview, prior to treatment today. No concerns voiced at this time. 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 She began having irregular bowel movements in September 2021. She also noted increasing bilateral lower abdominal pain. She also had about a 10 pound weight loss prior to surgery. Her only other medical history is glaucoma. Primary care provider is Dr. Jose Guadalupe Raya. Outpatient medications include a few eyedrops, plus Ocuvite. Colonoscopy was performed on March 13, 2022, scope could not be passed [id number] cm due to a tumor in the sigmoid colon. Almost obstructing and circumferential. A CT of the abdomen and pelvis from March 27, 2022 with IV contrast noted normal lung bases, asymmetric thickening of the right lateral wall of the mid sigmoid colon and a nearby 2 cm segment of mild circumferential wall thickening of the mid and distal descending colon, most likely peristalsis. No obvious adenopathy. She had a sigmoid colon resection on April 10, 2022. 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 T4aN2a Stage IIIC. Mismatch repair proteins were all intact. Extranodal extension wasnot seen. Angioinvasion is present. Margins of previous appear free of neoplasm. Grade 2, 3.3 cm lesion. No evidence of perineural invasion. This had invaded through the colon and into the visceral peritoneum. The tumor extended deeply into the serosal adipose tissue to the inked serosal surface. 05/27/22 she had some confusion about schedule of chemotherapy. she will start her FOLFOXtoday. she is doing well overall. she is here with her who has a traumatic brain injury from [place] years [place] able to take care of himself and walk with a cane. she lives with 16 year old son. 06/03/2022: Here for 8 day toxicity check after initiation of adjuvant FOLFOX chemotherapy for Stage IIIc colon cancer. Had a little bit of cold sensitivity, decreased appetite, fatigue and loose stool. Overall, very mild - tolerable; took Zofran x 1. 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 Labs reviewed on patient's chart from [place] - no significant cytopenias or electrolyte, renal/hepatic issues. 06/24/22 she is doing ok overall. she had a bit harder time with c2. loose stool for a week or two afterwards, mild headaches. she has neuropathy that persists slightly even today. She is due for c3 today. 07/22/2022: She is doing okay - fatigued in general; has a couple days of loose bowels and mild nausea. Cold induced neuropathy x1 week following treatment; then resolves. Still working Denies focal signs/symptoms of infection; no weight loss; appetite stable 08/19/2022: Patient is here for follow up prior to Cycle 7 adjuvant FOLFOX Mild neuropathy; mostly cold induced - usually occurs 3-4 days after pump DC andthen resolves Appetite is stable; no weight loss She is primarily concerned about her liver tests; she is noted to have gradual increase of LFT's ANC - 900; platelet count 92,000. No focal signs/symptoms of infection 09/02/22 She is doing well overall. her neuropathy has improved. 10/21/22 She just got back from visiting her mother and family in [place]. She has no neuropathy at all. last treatment was 09/23/22. - Physical Exam ECOG PS: 1 (fatigue) Pain: 0/10 General : patient is alert and oriented to person place and time, no acute distress. HEENT; oral mucosa pink/moist; no lesions/exudate; no JVD or thyromegaly. Lymph: no cervical, supraclavicular, axillary adenopathy. Heart: regular rate and rhythm no murmurs rubs or gallops. Abdomen: soft nontender nondistended, no hepatosplenomegaly. abdomen well healed. Lungs: cta bl, no wheezes, rales, rhonchi. Extremities: no clubbing cyanosis. Neurological: no focal/sensory deficits; alert and oriented x 3. Goal of Treatment: Curative - Time with Patient Coordination of Care & Counseling Time: Greater than 50% of time spent with patient was for coordination of care (as documented) and [id number] counseling of patient and/or family. [facility] - Medical History Medical History: Medical History (Last Updated 10/21/22 @ 08:36 by Ember Rodriguez) COVID September 2022 Glaucoma of both eyes bleeding - Surgical History Surgical History: Surgical History (Last Updated 05/02/22 @ 08:51 by Ember Rodriguez) History of History of hernia repair History of wisdom tooth extraction S/P colon resection Apr 2022 - Family History Family History: Family History (Last Updated 05/03/22 @ 14:37 by Ember Rodriguez) Mother Diabetes Dementia Hypertension Heart attack Glaucoma Father Parkinsonism Hypertension Heart attack Glaucoma - Social History Smoking Status: Never smoker Substance Use Type: None Additional Data - Additional Objective Data Height/Weight: Height 5 ft 4 in Weight 75.977 kg BSA for Today's Weight 1.85 Vital Signs: 10/21/22 08:27 Temperature 98.0 F Pulse Rate [Left Brachial] 60 Respiratory Rate 20 Blood Pressure [Left Arm] 129/76 02 Sat by Pulse Oximetry 99 Oxygen Delivery Method Room Air Distress Screening: RN Distress Screening Start: 05/03/22 14:29 Freq: Status: Active Protocol: Document 08/19/22 10:11 AG (Rec: 08/19/22 10:12 AG [id number]) Distress Screening Distress Score: 4 Day to Day Concerns Insurance,Money Physical Concerns Feeling tired or a lack of energy Emotional Concerns Worry,Feeling uncertain about the future Distress Screening Total 4 Distress score of 4 or more discussed Yes with patient? - Lab Results Diagram of Most Recent CBC and CMP 09/23/22 10:21 09/23/22 10:21 - Home Medications and Allergies Allergies/Adverse Reactions: Allergies hydrocodone Allergy (Verified 07/22/22 09:43) Nausea Home Medications: Home Medications brimonidine 0.2 % eye drops 1 drp Eye-Both BID 05/02/22 [History Confirmed 10/21/22] dorzolamide 22.3 mg-timolol 6.8 mg/mL eye drops 1 drp Eye-Both BID 05/02/22 [History Confirmed 10/21/22] latanoprost 0.005 % eye drops 1 drp Eye-Both QPM 05/02/22 [History Confirmed 10/21/22] acetaminophen 500 mg tablet 1,000 mg PO DAILY PRN Pain 05/03/22 [History Confirmed 10/21/22] ondansetron HCl 8 mg tablet 8 mg PO Q8H PRN Nausea #30 tabs 05/03/22 [Rx Confirmed 10/21/22] ascorbic acid (vitamin C) 1,000 mg capsule,extended release 1 cap PO DAILY 05/27/22 [History Confirmed 10/21/22] cholecalciferol (vitamin D3) 25 mcg (1,000 unit) capsule 25 mcg PO DAILY 05/27/22 [History Confirmed 10/21/22] omeprazole magnesium 10 mg oral suspension,delayed release (Prilosec) 20 mg PO DAILY #60 ea 08/05/22 [Rx Confirmed 10/21/22] prochlorperazine maleate 10 mg tablet (Compazine) 10 mg PO Q6H PRN Nausea And Vomiting #60 tabs 08/05/22 [Rx Confirmed 10/21/22] carica papaya (Papaya Enzyme tablet) 1 tab PO DAILY 08/19/22 [History Confirmed 10/21/22] Dictated By: Isaías Jordan II, DO DD/ 0836 Signed By: <Electronically signed by Isaías Jordan II, DO> 10/21/22 0850 [facility] Work Phone: 1(785) 334-725502-27-2023 Progress note Author Isaías Jordan [facility] September 02, 2022 9:09am Note Date/Time September 02, 2022 8:58am [facility] [place] [address] Hem/Onc Follow Up Note - OP Signed Patient: Marysol Gardner MR#: [id number] : 1965 Acct:[id number] Age/Sex: 57 / F Type: REG RCR Copies to: MD Clint Bernstein,~ Date of Service: 09/02/2022 Time of Service: 08:57 - Assessment & Plan (1) Colon cancer Plan: 1.) T4aN2A Stage IIIc colon adenocarcinoma. --pretreatment CT scan with no evidence metastatic disease. --consented for 6 months adjuvant FOLFOX chemotherapy. discussed very high risk for recurrence. --will re-image when she has completed adjuvant therapy. --CEA level - 8.1 on labs Was previously offered signatera testing and declined for now. will consider when she stops her chemotherapy. Cycle 1, Day 1 on 05/27/2022. Cycle 2, Day 1: 06/10/2022 Cycle 3, Day 1 06/24/2022 Cycle 4, Day 1: 07/09/2022 Cycle 5, Day 1: 07/22/2022 Cycle 6, Day 1: 08/05/2022 Cycle 7, Day 1: 08/19/2022 - (d/w Dr. Jordan - will dose reduce Oxaliplatin by25% and hold bolus 5FU today); no recommendations for growth factor; due to elevated transaminases; neutropenia and thrombocytopenia c8d1 on 09/02/22 (continue to hold the 5fu bolus, raise oxali to 100%). her anc was 1.1 prior to today and ast/alt normal. discussed colonoscopy, will repeat once she has completed chemotherapy. 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 chemo every 2 to 3 weeks. cbc, cmp prior to chemo f/u in 4 or 6 weeks with me or prototype special build. - History of Present Illness Chief Complaint: Patient is here for a 2 week follow up with outside labs for review, prior to treatment today. States she is feeling remarkably better. 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 She began having irregular bowel movements in September 2021. She also noted increasing bilateral lower abdominal pain. She also had about a 10 pound weight loss prior to surgery. Her only other medical history is glaucoma. Primary care provider is Dr. Jose Guadalupe Raya. Outpatient medications include a few eyedrops, plus Ocuvite. Colonoscopy was performed on March 13, 2022, scope could not be passed cm due to a tumor in the sigmoid colon. Almost obstructing and circumferential. A CT of the abdomen and pelvis from March 27, 2022 with IV contrast noted normal lung bases, asymmetric thickening of the right lateral wall of the mid sigmoid colon and a nearby 2 cm segment of mild circumferential wall thickening of the mid and distal descending colon, most likely peristalsis. No obvious adenopathy. She had a sigmoid colon resection on April 10, 2022. 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 T4aN2a Stage IIIC. Mismatch repair proteins were all intact. Extranodal extension wasnot seen. Angioinvasion is present. Margins of previous appear free of neoplasm. Grade 2, 3.3 cm lesion. No evidence of perineural invasion. This had invaded through the colon and into the visceral peritoneum. The tumor extended deeply into the serosal adipose tissue to the inked serosal surface. 05/27/22 she had some confusion about schedule of chemotherapy. she will start her FOLFOXtoday. she is doing well overall. she is here with her who has a traumatic brain injury from [place] years [place] able to take care of himself and walk with a cane. she lives with 16 year old son. 06/03/2022: Here for 8 day toxicity check after initiation of adjuvant FOLFOX chemotherapy for Stage IIIc colon cancer. Had a little bit of cold sensitivity, decreased appetite, fatigue and loose stool. Overall, very mild - tolerable; took Zofran x 1. 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 Labs reviewed on patient's chart from [place] - no significant cytopenias or electrolyte, renal/hepatic issues. 06/24/22 she is doing ok overall. she had a bit harder time with c2. loose stool for a week or two afterwards, mild headaches. she has neuropathy that persists slightly even today. She is due for c3 today. 07/22/2022: She is doing okay - fatigued in general; has a couple days of loose bowels and mild nausea. Cold induced neuropathy x1 week following treatment; then resolves. Still working Denies focal signs/symptoms of infection; no weight loss; appetite stable 08/19/2022: Patient is here for follow up prior to Cycle 7 adjuvant FOLFOX Mild neuropathy; mostly cold induced - usually occurs 3-4 days after pump DC andthen resolves Appetite is stable; no weight loss She is primarily concerned about her liver tests; she is noted to have gradual increase of LFT's ANC - 900; platelet count 92,000. No focal signs/symptoms of infection 09/02/22 She is doing well overall. her neuropathy has improved. - Physical Exam ECOG PS: 1 (fatigue) Pain: 0/10 General : patient is alert and oriented to person place and time, no acute distress. HEENT; oral mucosa pink/moist; no lesions/exudate; no JVD or thyromegaly. Lymph: no cervical, supraclavicular, axillary adenopathy. Heart: regular rate and rhythm no murmurs rubs or gallops. Abdomen: soft nontender nondistended, no hepatosplenomegaly. abdomen well healed. Lungs: cta bl, no wheezes, rales, rhonchi. Extremities: no clubbing cyanosis. Neurological: no focal/sensory deficits; alert and oriented x 3. Goal of Treatment: Curative - Time with Patient Coordination of Care & Counseling Time: Greater than 50% of time spent with patient was for coordination of care (as documented) and [id number] counseling of patient and/or family. [facility] - Medical History Medical History: Medical History (Last Reviewed 05/03/22 @ 14:36 by Ember Rodriguez) Glaucoma of both eyes bleeding - Surgical History Surgical History: Surgical History (Last Updated 05/02/22 @ 08:51 by Ember Rodriguez) History of History of hernia repair History of wisdom tooth extraction S/P colon resection Apr 2022 - Family History Family History: Family History (Last Updated 05/03/22 @ 14:37 by Ember Rodriguez) Mother Diabetes Dementia Hypertension Heart attack Glaucoma Father Parkinsonism Hypertension Heart attack Glaucoma - Social History Smoking Status: Never smoker Substance Use Type: None Additional Data - Additional Objective Data Height/Weight: Height 5 ft 4 in Weight 76.6 kg BSA for Today's Weight 1.84 Vital Signs: 09/02/22 08:36 Temperature 98 F Pulse Rate [Left Brachial] 65 Respiratory Rate 20 Blood Pressure [Left Arm] 147/90 H 02 Sat by Pulse Oximetry 99 Oxygen Delivery Method Room Air Distress Screening: RN Distress Screening Start: 05/03/22 14:29 Freq: Status: Active Protocol: Document 08/19/22 10:11 AG (Rec: 08/19/22 10:12 [id number]) Distress Screening Distress Score: 4 Day to Day Concerns Insurance,Money Physical Concerns Feeling tired or a lack of energy Emotional Concerns Worry,Feeling uncertain about the future Distress Screening Total 4 Distress score of 4 or more discussed Yes with patient? - Lab Results Diagram of Most Recent CBC and CMP 07/11/22 14:35 - Home Medications and Allergies Allergies/Adverse Reactions: Allergies hydrocodone Allergy (Verified 07/22/22 09:43) Nausea Home Medications: Home Medications brimonidine 0.2 % eye drops 1 drp Eye-Both BID 05/02/22 [History Confirmed 09/02/22] dorzolamide 22.3 mg-timolol 6.8 mg/mL eye drops 1 drp Eye-Both BID 05/02/22 [History Confirmed 09/02/22] latanoprost 0.005 % eye drops 1 drp Eye-Both QPM 05/02/22 [History Confirmed 09/02/22] acetaminophen 500 mg tablet 1,000 mg PO DAILY PRN Pain 05/03/22 [History Confirmed 09/02/22] ondansetron HCl 8 mg tablet 8 mg PO Q8H PRN Nausea #30 tabs 05/03/22 [Rx Confirmed 09/02/22] ascorbic acid (vitamin C) 1,000 mg capsule,extended release 1 cap PO DAILY 05/27/22 [History Confirmed 09/02/22] cholecalciferol (vitamin D3) 25 mcg (1,000 unit) capsule 25 mcg PO DAILY 05/27/22 [History Confirmed 09/02/22] omeprazole magnesium 10 mg oral suspension,delayed release (Prilosec) 20 mg PO DAILY #60 ea 08/05/22 [Rx Confirmed 09/02/22] prochlorperazine maleate 10 mg tablet (Compazine) 10 mg PO Q6H PRN Nausea And Vomiting #60 tabs 08/05/22 [Rx Confirmed 09/02/22] carica papaya (Papaya Enzyme tablet) 1 tab PO DAILY 08/19/22 [History Confirmed 09/02/22] Dictated By: Isaías Jordan II, DO DD/ 0857 Signed By: <Electronically signed by Isaías Jordan II, DO> 09/02/22 0909 [facility] Work Phone: 1(638) 266-372902-13-2023 Hospital Discharge instructionsAmbulatory Orders* Proceed with Treatment Time Frame: 08/19/22, Location: Determined By Patient [facility] Work Phone: 1(848) 523-375002-13-2023 Hospital Discharge instructionsAmbulatory Orders* Proceed with Treatment Time Frame: 08/19/22, Location: Determined By Patient * Proceed with Treatment Time Frame: 09/02/22, Location: Determined By Patient * [facility] Order Time Frame: 1 Week, Location: Determined By Patient [facility] Work Phone: [phone]) 521-323602-13-2023 Progress note Author Dayan Tacoslonnieivonne [facility] August 19, 2022 11:20am Note Date/Time August 19, 2022 11:14am [facility] at [address] [address] Hem/Onc Follow Up Note - OP Signed Patient: Marysol Gardner MR#: [id number] : 1965 Acct:[id number] Age/Sex: 57 / F Type: REG RCR Copies to: MD Clint Bernstein,DO~ Subjective Date/Time of Service: Date of Service: 08/19/2022 Time of Service: 11:12 Chief Complaint: Patient is here for a 1 month follow up with labs for review, prior to treatment today. No concerns voiced. 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 She began having irregular bowel movements in September 2021. She also noted increasing bilateral lower abdominal pain. She also had about a 10 pound weight loss prior to surgery. Her only other medical history is glaucoma. Primary care provider is Dr. Jose Guadalupe Raya. Outpatient medications include a few eyedrops, plus Ocuvite. Colonoscopy was performed on March 13, 2022, scope could not be passed cm due to a tumor in the sigmoid colon. Almost obstructing and circumferential. A CT of the abdomen and pelvis from March 27, 2022 with IV contrast noted normal lung bases, asymmetric thickening of the right lateral wall of the mid sigmoid colon and a nearby 2 cm segment of mild circumferential wall thickening of the mid and distal descending colon, most likely peristalsis. No obvious adenopathy. She had a sigmoid colon resection on April 10, 2022. 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 T4aN2a Stage IIIC. Mismatch repair proteins were all intact. Extranodal extension wasnot seen. Angioinvasion is present. Margins of previous appear free of neoplasm. Grade 2, 3.3 cm lesion. No evidence of perineural invasion. This had invaded through the colon and into the visceral peritoneum. The tumor extended deeply into the serosal adipose tissue to the inked serosal surface. 05/27/22 she had some confusion about schedule of chemotherapy. she will start her FOLFOXtoday. she is doing well overall. she is here with her who has a traumatic brain injury from [place] able to take care of himself and walk with a cane. she lives with 16 year old son. 06/03/2022: Here for 8 day toxicity check after initiation of adjuvant FOLFOX chemotherapy for Stage IIIc colon cancer. Had a little bit of cold sensitivity, decreased appetite, fatigue and loose stool. Overall, very mild - tolerable; took Zofran x 1. 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 Labs reviewed on patient's chart from [place] - no significant cytopenias or electrolyte, renal/hepatic issues. 06/24/22 she is doing ok overall. she had a bit harder time with c2. loose stool for a week or two afterwards, mild headaches. she has neuropathy that persists slightly even today. She is due for c3 today. 07/22/2022: She is doing okay - fatigued in general; has a couple days of loose bowels and mild nausea. Cold induced neuropathy x1 week following treatment; then resolves. Still working Denies focal signs/symptoms of infection; no weight loss; appetite stable 08/19/2022: Patient is here for follow up prior to Cycle 7 adjuvant FOLFOX Mild neuropathy; mostly cold induced - usually occurs 3-4 days after pump DC andthen resolves Appetite is stable; no weight loss She is primarily concerned about her liver tests; she is noted to have gradual increase of LFT's ANC - 900; platelet count 92,000. No focal signs/symptoms of infection - Summary of Therapies Summary of Therapies: FOLFOX chemotherapy (adjuvant) 1. Cycle 1, Day 1: 05/27/2022 Subjective/ROS - Narrative: As per the HPI, otherwise 10 point review of systems is negative. [facility] - Medical History Medical History: Medical History (Last Reviewed 05/03/22 @ 14:36 by Ember Rodriguez) Glaucoma of both eyes bleeding - Surgical History Surgical History: Surgical History (Last Updated 05/02/22 @ 08:51 by Ember Rodriguez) History of History of hernia repair History of wisdom tooth extraction S/P colon resection Apr 2022 - Family History Family History: Family History (Last Updated 05/03/22 @ 14:37 by Ember Rodriguez) Mother Diabetes Dementia Hypertension Heart attack Glaucoma Father Parkinsonism Hypertension Heart attack Glaucoma - Social History Smoking Status: Never smoker Substance Use Type: None Home Medications & Allergies Allergies hydrocodone Allergy (Verified 07/22/22 09:43) Nausea Home Medications brimonidine 0.2 % eye drops 1 drp Eye-Both BID 05/02/22 [History Confirmed 08/19/22] dorzolamide 22.3 mg-timolol 6.8 mg/mL eye drops 1 drp Eye-Both BID 05/02/22 [History Confirmed 08/19/22] latanoprost 0.005 % eye drops 1 drp Eye-Both QPM 05/02/22 [History Confirmed 08/19/22] acetaminophen 500 mg tablet 1,000 mg PO DAILY PRN Pain 05/03/22 [History Confirmed 08/19/22] ondansetron HCl 8 mg tablet 8 mg PO Q8H PRN Nausea #30 tabs 05/03/22 [Rx Confirmed 08/19/22] ascorbic acid (vitamin C) 1,000 mg capsule,extended release 1 cap PO DAILY 05/27/22 [History Confirmed 08/19/22] cholecalciferol (vitamin D3) 25 mcg (1,000 unit) capsule 25 mcg PO DAILY 05/27/22 [History Confirmed 08/19/22] omeprazole magnesium 10 mg oral suspension,delayed release (Prilosec) 20 mg PO DAILY #60 ea 08/05/22 [Rx Confirmed 08/19/22] prochlorperazine maleate 10 mg tablet (Compazine) 10 mg PO Q6H PRN Nausea And Vomiting #60 tabs 08/05/22 [Rx Confirmed 08/19/22] carica papaya (Papaya Enzyme tablet) 1 tab PO DAILY 08/19/22 [History Confirmed 08/19/22] Objective - Resuscitation Status Resuscitation Status: Full Code - Height/Weight Height/Weight: Height 5 ft 4 in Weight 74.9 kg BSA for Today's Weight 1.84 - Vital Signs Vital Signs: 08/19/22 08:43 Temperature 98.1 F Pulse Rate [Left Brachial] 60 Respiratory Rate 20 Blood Pressure [Left Arm] 143/90 H 02 Sat by Pulse Oximetry 100 Oxygen Delivery Method Room Air - Distress Screening Distress Screen Results: Emotional Needs Identified? Yes Support System Family,Friend Ineffective Coping Symptoms History of Chronic Illness RN Distress Screening Start: 05/03/22 14:29 Freq: Status: Active Protocol: Document 08/19/22 10:11 AG (Rec: 08/19/22 10:12 AG [email or web address]) Distress Screening Distress Score: 4 Day to Day Concerns Insurance,Money Physical Concerns Feeling tired or a lack of energy Emotional Concerns Worry,Feeling uncertain about the future Distress Screening Total 4 Distress score of 4 or more discussed Yes with patient? Physical Exam Narrative: ECOG PS: 1 (fatigue) Pain: 0/10 General : patient is alert and oriented to person place and time, no acute distress. HEENT; oral mucosa pink/moist; no lesions/exudate; no JVD or thyromegaly. Lymph: no cervical, supraclavicular, axillary adenopathy. Heart: regular rate and rhythm no murmurs rubs or gallops. Abdomen: soft nontender nondistended, no hepatosplenomegaly. abdomen well healed. Lungs: cta bl, no wheezes, rales, rhonchi. Extremities: no clubbing cyanosis. Neurological: no focal/sensory deficits; alert and oriented x 3. - ECOG Performance Status ECOG Score: 0 Results - Labs Labs: Diagram of Most Recent CBC and CMP 07/11/22 14:35 Assessment and Plan (1) Colon cancer 1.) T4aN2A Stage IIIc colon adenocarcinoma. --pretreatment CT scan with no evidence metastatic disease. --consented for 6 months adjuvant FOLFOX chemotherapy. discussed very high risk for recurrence. --will re-image when she has completed adjuvant therapy. --CEA level - 8.1 on labs Was previously offered signatera testing and declined for now. will consider when she stops her chemotherapy. Cycle 1, Day 1 on 05/27/2022. Cycle 2, Day 1: 06/10/2022 Cycle 3, Day 1 06/24/2022 Cycle 4, Day 1: 07/09/2022 Cycle 5, Day 1: 07/22/2022 Cycle 6, Day 1: 08/05/2022 Cycle 7, Day 1: 08/19/2022 - (d/w Dr. Jordan - will dose reduce Oxaliplatin by25% and hold bolus 5FU today); no recommendations for growth factor; due to elevated transaminases; neutropenia and thrombocytopenia -- neutropenic precautions enforced discussed colonoscopy, will repeat once she has completed chemotherapy. 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 - mild - present x 1 week; then resolves by chemotherapy day 3.) Abnormal LFTs - LFT's trending upwards - plan dose reduction 25% of Oxaliplatin; will also hold bolus 5FU 4.) Encounter for antineoplastic therapy Cycle 1, Day 1 adjuvant FOLFOX: 05/27/2022 Cycle 7, Day 1: 08/19/2022 - dose reduction of Oxaliplatin; hold bolus 5FU due tocytopenias; elevated transaminases Continue x 12 cycles (2) Chemotherapy-induced peripheral neuropathy (3) Abnormal LFTs (4) Encounter for chemotherapy management - Chemo Plan Goal of Treatment: Curative - Time with Patient Time Spent with Patient (Follow Up Visit): 35 minutes Coordination of Care & Counseling Time: Greater than 50% of time spent with patient was for coordination of care (as documented) and [id number] counseling of patient and/or family. Dictated By: Dayan Magallon APRN DD/ 111 Signed By: <Electronically signed by OLIVIA Magallon> 08/19/22 1120 [facility] Work Phone: [phone]) 287-157201-16-2023 Progress note Author Dayan Magallon [facility] July 22, 2022 11:46am Note Date/Time July 22, 2022 1 1:36am [facility] [place] [address] Hem/Onc Follow Up Note - OP Signed Patient: Marysol Gardner MR#: [id number] : 1965 Acct:[id number] Age/Sex: 57 / F Type: REG RCR Copies to: MD Clint Bernstein DO~ Subjective Date/Time of Service: Date of Service: 07/22/2022 Time of Service: 11:34 Chief Complaint: Patient is here today for a one month follow up visit for coloncancer and go over labs. 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 She began having irregular bowel movements in September 2021. She also noted increasing bilateral lower abdominal pain. She also had about a 10 pound weight loss prior to surgery. Her only other medical history is glaucoma. Primary care provider is Dr. Jose Guadalupe Raya. Outpatient medications include a few eyedrops, plus Ocuvite. Colonoscopy was performed on March 13, 2022, scope could not be passed [id number] cm due to a tumor in the sigmoid colon. Almost obstructing and circumferential. A CT of the abdomen and pelvis from March 27, 2022 with IV contrast noted normal lung bases, asymmetric thickening of the right lateral wall of the mid sigmoid colon and a nearby 2 cm segment of mild circumferential wall thickening of the mid and distal descending colon, most likely peristalsis. No obvious adenopathy. She had a sigmoid colon resection on April 10, 2022. 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 T4aN2a Stage IIIC. Mismatch repair proteins were all intact. Extranodal extension wasnot seen. Angioinvasion is present. Margins of previous appear free of neoplasm. Grade 2, 3.3 cm lesion. No evidence of perineural invasion. This had invaded through the colon and into the visceral peritoneum. The tumor extended deeply into the serosal adipose tissue to the inked serosal surface. 05/27/22 she had some confusion about schedule of chemotherapy. she will start her FOLFOXtoday. she is doing well overall. she is here with her who has a traumatic brain injury from november years agobut able to take care of himself and walk with a cane. she lives with 16 year old son. 06/03/2022: Here for 8 day toxicity check after initiation of adjuvant FOLFOX chemotherapy for Stage IIIc colon cancer. Had a little bit of cold sensitivity, decreased appetite, fatigue and loose stool. Overall, very mild - tolerable; took Zofran x 1. 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 Labs reviewed on patient's chart from [place] - no significant cytopenias or electrolyte, renal/hepatic issues. 06/24/22 she is doing ok overall. she had a bit harder time with c2. loose stool for a week or two afterwards, mild headaches. she has neuropathy that persists slightly even today. She is due for c3 today. 07/22/2022: She is doing okay - fatigued in general; has a couple days of loose bowels and mild nausea. Cold induced neuropathy x1 week following treatment; then resolves. Still working Denies focal signs/symptoms of infection; no weight loss; appetite stable - Summary of Therapies Summary of Therapies: FOLFOX chemotherapy (adjuvant) 1. Cycle 1, Day 1: 05/27/2022 Subjective/ROS - Narrative: As per the HPI, otherwise 10 point review of systems is negative. [facility] - Medical History Medical History: Medical History (Last Reviewed 05/03/22 @ 14:36 by Ember Rodriguez) Glaucoma of both eyes bleeding - Surgical History Surgical History: Surgical History (Last Updated 05/02/22 @ 08:51 by Ember Rodriguez) History of History of hernia repair History of wisdom tooth extraction S/P colon resection Apr 2022 - Family History Family History: Family History (Last Updated 05/03/22 @ 14:37 by Ember Rodriguez) Mother Diabetes Dementia Hypertension Heart attack Glaucoma Father Parkinsonism Hypertension Heart attack Glaucoma - Social History Smoking Status: Never smoker Substance Use Type: None Home Medications & Allergies Allergies hydrocodone Allergy (Verified 07/22/22 09:43) Nausea Home Medications brimonidine 0.2 % eye drops 1 drp Eye-Both BID 05/02/22 [History Confirmed 07/22/22] dorzolamide 22.3 mg-timolol 6.8 mg/mL eye drops 1 drp Eye-Both BID 05/02/22 [History Confirmed 07/22/22] latanoprost 0.005 % eye drops 1 drp Eye-Both QPM 05/02/22 [History Confirmed 07/22/22] acetaminophen 500 mg tablet 1,000 mg PO DAILY PRN Pain 05/03/22 [History Confirmed 07/22/22] ondansetron HCl 8 mg tablet 8 mg PO Q8H PRN Nausea #30 tabs 05/03/22 [Rx Confirmed 07/22/22] ascorbic acid (vitamin C) 1,000 mg capsule,extended release 1 cap PO DAILY 05/27/22 [History Confirmed 07/22/22] cholecalciferol (vitamin D3) 25 mcg (1,000 unit) capsule 25 mcg PO DAILY 05/27/22 [History Confirmed 07/22/22] Objective - Height/Weight Height/Weight: Height 5 ft 4 in Weight 75.7 kg BSA for Today's Weight 1.85 - Vital Signs Vital Signs: 07/22/22 09:43 Temperature 97.8 F Pulse Rate [Left Brachial] 67 Respiratory Rate 16 Blood Pressure [Left Arm] 149/92 H 02 Sat by Pulse Oximetry 98 Oxygen Delivery Method Room Air - Distress Screening Distress Screen Results: Emotional Needs Identified? No Support System Spouse,Child/Children,Friend Ineffective Coping Symptoms History of Chronic Illness Physical Exam Narrative: ECOG PS: 1 (fatigue) Pain: 0/10 General : patient is alert and oriented to person place and time, no acute distress. HEENT; oral mucosa pink/moist; no lesions/exudate; no JVD or thyromegaly. Lymph: no cervical, supraclavicular, axillary adenopathy. Heart: regular rate and rhythm no murmurs rubs or gallops. Abdomen: soft nontender nondistended, no hepatosplenomegaly. abdomen well healed. Lungs: cta bl, no wheezes, rales, rhonchi. Extremities: no clubbing cyanosis. Neurological: no focal/sensory deficits; alert and oriented x 3. - ECOG Performance Status ECOG Score: 1 Results - Labs Labs: Diagram of Most Recent CBC and CMP 07/11/22 14:35 Assessment and Plan (1) Colon cancer 1.) T4aN2A Stage IIIc colon adenocarcinoma. --pretreatment CT scan with no evidence metastatic disease. --consented for 6 months adjuvant FOLFOX chemotherapy. discussed very high risk for recurrence. --will re-image when she has completed adjuvant therapy. --CEA level - 8.1 on labs Was previously offered signatera testing and declined for now. will consider when she stops her chemotherapy. Cycle 1, Day 1 on 05/27/2022. Cycle 2, Day 1: 06/10/2022 Cycle 3, Day 1 06/24/2022 Cycle 4, Day 1: 07/09/2022 Cycle 5, Day 1: 07/22/2022 discussed colonoscopy, will repeat once she has completed chemotherapy. 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 - mild - present x 1 week; then resolves by chemotherapy day 3.) Abnormal LFTs - slightly elevated, but stable - will follow for now 4.) Encounter for antineoplastic therapy Cycle 1, Day 1 adjuvant FOLFOX: 05/27/2022 Continue x 12 cycles (2) Chemotherapy-induced peripheral neuropathy (3) Abnormal LFTs (4) Encounter for chemotherapy management - Chemo Plan Goal of Treatment: Curative - Time with Patient Time Spent with Patient (Follow Up Visit): 35 minutes Coordination of Care & Counseling Time: Greater than 50% of time spent with patient was for coordination of care (as documented) and [id number] counseling of patient and/or family. Dictated By: Dayan Magallon APRN DD/ 1134 Signed By: <Electronically signed by OLIVIA Magallon> 07/22/22 1146 [facility] Work Phone: 1(703) 872-795012-19-2022 Progress note Author Isaías Jordan [facility] June 24, 2022 9:49am Note Date/Time June 24, 2022 9:42am [facility] [place] [address] Hem/Onc Follow Up Note - OP Signed Patient: Marysol Gardner MR#: [id number] : 1965 Acct:[id number] Age/Sex: 57 / F Type: REG RCR Copies to: MD Clint Bernstein,DO~ Date of Service: 06/24/2022 Time of Service: 09:40 - Assessment & Plan (1) Colon cancer Plan: 1.) T4aN2A Stage IIIc colon adenocarcinoma. --pretreatment CT scan with no evidence metastatic disease. --consented for 6 months adjuvant FOLFOX chemotherapy. discussed very high risk for recurrence. --will re-image when she has completed adjuvant therapy. Offered signatera testing and declined for now. will consider when she stops herchemotherapy. Cycle 1, Day 1 on 05/27/2022. Cycle 2, Day 1: 06/10/2022 Cycle 3, Day 1 on 06/24/2022. discussed colonoscopy, will repeat once she has completed chemotherapy. Neuropathy. mild. mostly resolves by chemo day currently6. (2) Encounter for chemotherapy management Follow Up Instructions: cotn folfox q2wks. f/u with me or prototype special build in a month. cbc, cmp on treatemet days. cea prior to f/u. 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 She began having irregular bowel movements in September 2021. She also noted increasing bilateral lower abdominal pain. She also had about a 10 pound weight loss prior to surgery. Her only other medical history is glaucoma. Primary care provider is Dr. Jose Guadalupe Raya. Outpatient medications include a few eyedrops, plus Ocuvite. Colonoscopy was performed on March 13, 2022, scope could not be passed [id number] cm due to a tumor in the sigmoid colon. Almost obstructing and circumferential. A CT of the abdomen and pelvis from March 27, 2022 with IV contrast noted normal lung bases, asymmetric thickening of the right lateral wall of the mid sigmoid colon and a nearby 2 cm segment of mild circumferential wall thickening of the mid and distal descending colon, most likely peristalsis. No obvious adenopathy. She had a sigmoid colon resection on April 10, 2022. 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 T4aN2a Stage IIIC. Mismatch repair proteins were all intact. Extranodal extension wasnot seen. Angioinvasion is present. Margins of previous appear free of neoplasm. Grade 2, 3.3 cm lesion. No evidence of perineural invasion. This had invaded through the colon and into the visceral peritoneum. The tumor extended deeply into the serosal adipose tissue to the inked serosal surface. 05/27/22 she had some confusion about schedule of chemotherapy. she will start her FOLFOXtoday. she is doing well overall. she is here with her who has a traumatic brain injury from may years [place] able to take care of himself and walk with a cane. she lives with 16 year old son. 06/03/2022: Here for 8 day toxicity check after initiation of adjuvant FOLFOX chemotherapy for Stage IIIc colon cancer. Had a little bit of cold sensitivity, decreased appetite, fatigue and loose stool. Overall, very mild - tolerable; took Zofran x 1. 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 Labs reviewed on patient's chart from [place] - no significant cytopenias or electrolyte, renal/hepatic issues. 06/24/22 she is doing ok overall. she had a bit harder time with c2. loose stool for a week or two afterwards, mild headaches. she has neuropathy that persists slightly even today. She is due for c3 today. - Physical Exam ECOG PS: 0 Pain: 0/10 General : patient is alert and oriented to person place and time, no acute distress. HEENT; oral mucosa pink/moist; no lesions/exudate; no JVD or thyromegaly. Lymph: no cervical, supraclavicular, axillary adenopathy. Heart: regular rate and rhythm no murmurs rubs or gallops. Abdomen: soft nontender nondistended, no hepatosplenomegaly. abdomen well healed. Lungs: cta bl, no wheezes, rales, rhonchi. Extremities: no clubbing cyanosis. Neurological: no focal/sensory deficits; alert and oriented x 3. Goal of Treatment: Curative - Time with Patient Coordination of Care & Counseling Time: Greater than 50% of time spent with patient was for coordination of care (as documented) and [id number] counseling of patient and/or family. [facility] - Medical History Medical History: Medical History (Last Reviewed 05/03/22 @ 14:36 by Ember Rodriguez) Glaucoma of both eyes bleeding - Surgical History Surgical History: Surgical History (Last Updated 05/02/22 @ 08:51 by Ember Rodriguez) History of History of hernia repair History of wisdom tooth extraction S/P colon resection Apr 2022 - Family History Family History: Family History (Last Updated 05/03/22 @ 14:37 by Ember Rodriguez) Mother Diabetes Dementia Hypertension Heart attack Glaucoma Father Parkinsonism Hypertension Heart attack Glaucoma - Social History Smoking Status: Never smoker Substance Use Type: None Additional Data - Additional Objective Data Height/Weight: Height 5 ft 4 in Weight 75 kg BSA for Today's Weight 1.83 Vital Signs: 06/24/22 09:08 Temperature 98.0 F Pulse Rate [Left Brachial] 61 Respiratory Rate 16 Blood Pressure [Left Arm] 137/93 02 Sat by Pulse Oximetry 98 Oxygen Delivery Method Room Air - Home Medications and Allergies Allergies/Adverse Reactions: Allergies hydrocodone Allergy (Verified 06/24/22 09:08) Nausea Home Medications: Home Medications brimonidine 0.2 % eye drops 1 drp Eye-Both BID 05/02/22 [History Confirmed 06/24/22] dorzolamide 22.3 mg-timolol 6.8 mg/mL eye drops 1 drp Eye-Both BID 05/02/22 [History Confirmed 06/24/22] latanoprost 0.005 % eye drops 1 drp Eye-Both QPM 05/02/22 [History Confirmed 06/24/22] acetaminophen 500 mg tablet 1,000 mg PO DAILY PRN Pain 05/03/22 [History Confirmed 06/24/22] ondansetron HCl 8 mg tablet 8 mg PO Q8H PRN Nausea #30 tabs 05/03/22 [Rx Confirmed 06/24/22] ascorbic acid (vitamin C) 1,000 mg capsule,extended release 1 cap PO DAILY 05/27/22 [History Confirmed 06/24/22] cholecalciferol (vitamin D3) 25 mcg (1,000 unit) capsule 25 mcg PO DAILY 05/27/22 [History Confirmed 06/24/22] Dictated By: Isaías Jordan II, DO DD/ 0940 Signed By: <Electronically signed by Isaías Jordan II, DO> 06/24/22 0949 [facility] Work Phone: [phone]) 828-181811-28-2022 Progress note Author Dayan Magallon [facility] June 03, 2022 8:41am Note Date/Time June 03, 2022 8:14am [facility] [place] [address] Hem/Onc Follow Up Note - OP Signed Patient: Marysol Gardner MR#: [id number] : 1965 Acct:[id number] Age/Sex: 57 / F Type: REG RCR Copies to: MD Clint Bernstein DO~ Subjective Date/Time of Service: Date of Service: 06/03/2022 Time of Service: 08:14 Chief Complaint: Patient is here for a one week follow up with outside labs for review. Patient reports loose stools, sore gums, little fatigue, and nausea after treatment. No other concerns voiced at this time. 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 She began having irregular bowel movements in September 2021. She also noted increasing bilateral lower abdominal pain. She also had about a 10 pound weight loss prior to surgery. Her only other medical history is glaucoma. Primary care provider is Dr. Jose Guadalupe Raya. Outpatient medications include a few eyedrops, plus Ocuvite. Colonoscopy was performed on March 13, 2022, scope could not be passed [id number] cm due to a tumor in the sigmoid colon. Almost obstructing and circumferential. A CT of the abdomen and pelvis from March 27, 2022 with IV contrast noted normal lung bases, asymmetric thickening of the right lateral wall of the mid sigmoid colon and a nearby 2 cm segment of mild circumferential wall thickening of the mid and distal descending colon, most likely peristalsis. No obvious adenopathy. She had a sigmoid colon resection on April 10, 2022. 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 T4aN2a Stage IIIC. Mismatch repair proteins were all intact. Extranodal extension wasnot seen. Angioinvasion is present. Margins of previous appear free of neoplasm. Grade 2, 3.3 cm lesion. No evidence of perineural invasion. This had invaded through the colon and into the visceral peritoneum. The tumor extended deeply into the serosal adipose tissue to the inked serosal surface. 05/27/22 she had some confusion about schedule of chemotherapy. she will start her FOLFOXtoday. she is doing well overall. she is here with her who has a traumatic brain injury from may years [place] able to take care of himself and walk with a cane. she lives with 16 year old son. 06/03/2022: Here for 8 day toxicity check after initiation of adjuvant FOLFOX chemotherapy for Stage IIIc colon cancer. Had a little bit of cold sensitivity, decreased appetite, fatigue and loose stool. Overall, very mild - tolerable; took Zofran x 1. 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 Labs reviewed on patient's chart from [place] - no significant cytopenias or electrolyte, renal/hepatic issues. - Summary of Therapies Summary of Therapies: FOLFOX chemotherapy (adjuvant) 1. Cycle 1, Day 1: 05/27/2022 Subjective/ROS - Narrative: As per the HPI, otherwise 10 point review of systems is negative. [facility] - Medical History Medical History: Medical History (Last Reviewed 05/03/22 @ 14:36 by Ember Rodriguez) Glaucoma of both eyes bleeding - Surgical History Surgical History: Surgical History (Last Updated 05/02/22 @ 08:51 by Ember Rodriguez) History of History of hernia repair History of wisdom tooth extraction S/P colon resection Apr 2022 - Family History Family History: Family History (Last Updated 05/03/22 @ 14:37 by Ember Rodriguez) Mother Diabetes Dementia Hypertension Heart attack Glaucoma Father Parkinsonism Hypertension Heart attack Glaucoma - Social History Smoking Status: Never smoker Substance Use Type: None Home Medications & Allergies Allergies hydrocodone Allergy (Verified 05/03/22 14:38) Nausea Home Medications brimonidine 0.2 % eye drops 1 drp Eye-Both BID 05/02/22 [History Confirmed 06/03/22] dorzolamide 22.3 mg-timolol 6.8 mg/mL eye drops 1 drp Eye-Both BID 05/02/22 [History Confirmed 06/03/22] latanoprost 0.005 % eye drops 1 drp Eye-Both QPM 05/02/22 [History Confirmed 06/03/22] acetaminophen 500 mg tablet 1,000 mg PO DAILY PRN Pain 05/03/22 [History Confirmed 06/03/22] ondansetron HCl 8 mg tablet 8 mg PO Q8H PRN Nausea #30 tabs 05/03/22 [Rx Confirmed 06/03/22] ascorbic acid (vitamin C) 1,000 mg capsule,extended release 1 cap PO DAILY 05/27/22 [History Confirmed 06/03/22] cholecalciferol (vitamin D3) 25 mcg (1,000 unit) capsule 25 mcg PO DAILY 05/27/22 [History Confirmed 06/03/22] Objective - Resuscitation Status Resuscitation Status: Full Code - Height/Weight Height/Weight: Height 5 ft 4 in Weight 74.1 kg BSA for Today's Weight 1.84 - Vital Signs Vital Signs: 06/03/22 08:08 Pulse Rate [Left Brachial] 56 L Respiratory Rate 20 Blood Pressure [Left Arm] 137/90 02 Sat by Pulse Oximetry 98 Oxygen Delivery Method Room Air Physical Exam Narrative: ECOG PS: 0 Pain: 0/10 General : patient is alert and oriented to person place and time, no acute distress. HEENT; oral mucosa pink/moist; no lesions/exudate; no JVD or thyromegaly. Lymph: no cervical, supraclavicular, axillary adenopathy. Heart: regular rate and rhythm no murmurs rubs or gallops. Abdomen: soft nontender nondistended, no hepatosplenomegaly. abdomen well healed. Lungs: cta bl, no wheezes, rales, rhonchi. Extremities: no clubbing cyanosis. Neurological: no focal/sensory deficits; alert and oriented x 3. - ECOG Performance Status ECOG Score: 0 Assessment and Plan (1) Colon cancer 1.) T4aN2A Stage IIIc colon adenocarcinoma. --pretreatment CT scan with no evidence metastatic disease. --consented for 6 months adjuvant FOLFOX chemotherapy. discussed very high risk for recurrence. --will re-image when she has completed adjuvant therapy. Offered signatera testing and declined for now. will consider when she stops herchemotherapy. 06/03/2022: Commenced therapy with Cycle 1, Day 1 on 05/27/2022. - well tolerated; no significant issues or toxicities at 8 day toxicity visit. ---- mild fatigue, mild cold sensitivity, and a few loose stools. Needed to takeZofran x 1. - labs are stable; patient to go back to work today, works at [employer] as a nurse. - plan Cycle 2, Day 1: 06/10/2022 - follow up prior to Cycle 3, Day 1 on 06/24/2022. 2.) Encounter for monitoring chemotherapy - Cycle 1, Day 1: 05/27/2022 (full dose) - Cycle 2, Day 1: 06/10/2022 (2) Encounter for chemotherapy management - Chemo Plan Goal of Treatment: Curative - Time with Patient Time Spent with Patient (Follow Up Visit): 25 minutes Coordination of Care & Counseling Time: Greater than 50% of time spent with patient was for coordination of care (as documented) and [id number] counseling of patient and/or family. Dictated By: Dayan Magallon APRN DD/ 3 Signed By: <Electronically signed by OLIVIA Magallon> 06/03/22840 [facility] Work Phone: 1(140) [phone] Progress note Author Isaías Jordan [facility] May 27, 2022 9:53am Note Date/Time May 27, 2022 9:52am [facility] at [address] [address] Hem/Onc Follow Up Note - OP Signed Patient: Marysol Gardner MR#: [id number] : 1965 Acct:[id number] Age/Sex: 57 / F Type: REG RCR Copies to: MD Clint Bernstein,DO~ Date of Service: 05/27/2022 Time of Service: 09:46 - Assessment & Plan (1) Colon cancer Plan: T4aN2A Stage IIIc clon adenocarcinoma. pretreatment CT scan with no evidence metastatic disease. will offer 6 months adjuvant FOLFOX chemotherapy. discussed very high risk for recurrence. will reimage when she has completed adjuvant therapy. Offered signatera testing and declined for now. will consider when she stops herchemotherapy. Discussed a port and side effects of chemotherapy. - History of Present Illness Chief Complaint: Patient is here for a 3 week follow up with outside labs for review. Had port placed 05/22/2022. Is scheduled for C1D1 FOLFOX today. 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 She began having irregular bowel movements in September 2021. She also noted increasing bilateral lower abdominal pain. She also had about a 10 pound weight loss prior to surgery. Her only other medical history is glaucoma. Primary care provider is Dr. Jose Guadalupe Raya. Outpatient medications include a few eyedrops, plus Ocuvite. Colonoscopy was performed on March 13, 2022, scope could not be passed [id number] cm due to a tumor in the sigmoid colon. Almost obstructing and circumferential. A CT of the abdomen and pelvis from March 27, 2022 with IV contrast noted normal lung bases, asymmetric thickening of the right lateral wall of the mid sigmoid colon and a nearby 2 cm segment of mild circumferential wall thickening of the mid and distal descending colon, most likely peristalsis. No obvious adenopathy. She had a sigmoid colon resection on April 10, 2022. 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 T4aN2a Stage IIIC. Mismatch repair proteins were all intact. Extranodal extension wasnot seen. Angioinvasion is present. Margins of previous appear free of neoplasm. Grade 2, 3.3 cm lesion. No evidence of perineural invasion. This had invaded through the colon and into the visceral peritoneum. The tumor extended deeply into the serosal adipose tissue to the inked serosal surface. 05/27/22 she had some confusion about schedule of chemotherapy. she will start her FOLFOXtoday. she is doing well overall. she is here with her who has a traumatic brain injury from november years agobut able to take care of himself and walk with a cane. she lives with 16 year old son. - Physical Exam ECOG PS: 0 General : patient is alert and oriented to person place and time, no acute distress. Neck: no JVD or thyromegaly. Lymph: no cervical, supraclavicular, axillary adenopathy. Heart: regular rate and rhythm no murmurs rubs or gallops. Abdomen: soft nontender nondistended, no hepatosplenomegaly. abdomen well healed. Lungs: cta bl, no wheezes, rales, rhonchi. Extremities: no clubbing cyanosis. - Time with Patient Coordination of Care & Counseling Time: Greater than 50% of time spent with patient was for coordination of care (as documented) and [id number]-sx-[id number] counseling of patient and/or family. [facility] - Medical History Medical History: Medical History (Last Reviewed 05/03/22 @ 14:36 by Ember Rodriguez) Glaucoma of both eyes bleeding - Surgical History Surgical History: Surgical History (Last Updated 05/02/22 @ 08:51 by Ember Rodriguez) History of History of hernia repair History of wisdom tooth extraction S/P colon resection Apr 2022 - Family History Family History: Family History (Last Updated 05/03/22 @ 14:37 by Ember Rodriguez) Mother Diabetes Dementia Hypertension Heart attack Glaucoma Father Parkinsonism Hypertension Heart attack Glaucoma - Social History Smoking Status: Never smoker Substance Use Type: None Additional Data - Additional Objective Data Height/Weight: Height 5 ft 4 in Weight 74.8 kg Vital Signs: 05/27/22 09:27 Pulse Rate [Left Brachial] 56 L Respiratory Rate 20 Blood Pressure [Left Arm] 130/79 02 Sat by Pulse Oximetry 99 Oxygen Delivery Method Room Air - Home Medications and Allergies Allergies/Adverse Reactions: Allergies hydrocodone Allergy (Verified 05/03/22 14:38) Nausea Home Medications: Home Medications brimonidine 0.2 % eye drops 1 drp Eye-Both BID 05/02/22 [History Confirmed 05/27/22] dorzolamide 22.3 mg-timolol 6.8 mg/mL eye drops 1 drp Eye-Both BID 05/02/22 [History Confirmed 05/27/22] latanoprost 0.005 % eye drops 1 drp Eye-Both QPM 05/02/22 [History Confirmed 05/27/22] acetaminophen 500 mg tablet 1,000 mg PO DAILY PRN Pain 05/03/22 [History Confirmed 05/27/22] ondansetron HCl 8 mg tablet 8 mg PO Q8H PRN Nausea #30 tabs 05/03/22 [Rx Confirmed 05/27/22] ascorbic acid (vitamin C) 1,000 mg capsule,extended release 1 cap PO DAILY 05/27/22 [History Confirmed 05/27/22] cholecalciferol (vitamin D3) 25 mcg (1,000 unit) capsule 25 mcg PO DAILY 05/27/22 [History Confirmed 05/27/22] Dictated By: Isaías Jordan II, DO DD/ 5 Signed By: <Electronically signed by Isaías Jordan II, DO> 05/27/22 0953 [facility] Work Phone: 1(627) 922-151710-28-2022 Progress note Author Isaías Jordan [facility] May 03, 2022 3:28pm Note Date/Time May 03, 2022 3 :00pm [facility] [place] [id number] Hem/Onc Follow Up Note - OP Signed Patient: Marysol Gardner MR#: [id number] : 1965 Acct:[id number] Age/Sex: 57 / F Type: REG RCR Copies to: MD Clint Bernstein,~ Date of Service: 05/03/2022 Time of Service: 14:49 - Assessment & Plan (1) Colon cancer Plan: T4aN2A Stage IIIc clon adenocarcinoma. pretreatment CT scan with no evidence metastatic disease. will offer 6 months adjuvant FOLFOX chemotherapy. will monitor for recurrence. Offered signatera testing and declined for now. Discussed a port and side effects of chemotherapy. Follow Up Instructions: f/u for FOLFOX [place] [address] Jean Baptiste for port. - History of Present Illness Chief Complaint: Patient is here for a referral from Dr Clint Jean Baptiste for colon cancer with mets to lymp nodes. Outside notes, path, and rad for review. 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 She began having irregular bowel movements in September 2021. She also noted increasing bilateral lower abdominal pain. She also had about a 10 pound weight loss prior to surgery. Her only other medical history is glaucoma. Primary care provider is Dr. Jose Guadalupe Raya. Outpatient medications include a few eyedrops, plus Ocuvite. Colonoscopy was performed on March 13, 2022, scope could not be passed [id number] cm due to a tumor in the sigmoid colon. Almost obstructing and circumferential. A CT of the abdomen and pelvis from March 27, 2022 with IV contrast noted normal lung bases, asymmetric thickening of the right lateral wall of the mid sigmoid colon and a nearby 2 cm segment of mild circumferential wall thickening of the mid and distal descending colon, most likely peristalsis. No obvious adenopathy. She had a sigmoid colon resection on April 10, 2022. 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 T4aN2a Stage IIIC. Mismatch repair proteins were all intact. Extranodal extension wasnot seen. Angioinvasion is present. Margins of previous appear free of neoplasm. Grade 2, 3.3 cm lesion. No evidence of perineural invasion. This had invaded through the colon and into the visceral peritoneum. The tumor extended deeply into the serosal adipose tissue to the inked serosal surface. - Physical Exam ECOG PS: 0 General : patient is alert and oriented to person place and time, no acute distress. Neck: no JVD or thyromegaly. Lymph: no cervical, supraclavicular, axillary adenopathy. Heart: regular rate and rhythm no murmurs rubs or gallops. Abdomen: soft nontender nondistended, no hepatosplenomegaly. abdomen well healed. Lungs: cta bl, no wheezes, rales, rhonchi. Extremities: no clubbing cyanosis. - Time with Patient Coordination of Care & Counseling Time: Greater than 50% of time spent with patient was for coordination of care (as documented) and [id number] counseling of patient and/or family. [facility] - Medical History Medical History: Medical History (Last Reviewed 05/03/22 @ 14:36 by Ember Rodriguez) Glaucoma of both eyes bleeding - Surgical History Surgical History: Surgical History (Last Updated 05/02/22 @ 08:51 by Ember Rodriguez) History of History of hernia repair History of wisdom tooth extraction S/P colon resection Apr 2022 - Family History Family History: Family History (Last Updated 05/03/22 @ 14:37 by Ember Rodriguez) Mother Diabetes Dementia Hypertension Heart attack Glaucoma Father Parkinsonism Hypertension Heart attack Glaucoma - Social History Smoking Status: Never smoker Substance Use Type: None Additional Data - Additional Objective Data Height/Weight: Height 5 ft 4 in Weight 73.936 kg Vital Signs: 05/03/22 14:47 Pulse Rate [Left Brachial] 88 Respiratory Rate 20 Blood Pressure [Left Arm] 133/83 02 Sat by Pulse Oximetry 100 Oxygen Delivery Method Room Air - Home Medications and Allergies Allergies/Adverse Reactions: Allergies hydrocodone Allergy (Verified 05/03/22 14:38) Nausea Home Medications: Home Medications brimonidine 0.2 % eye drops 1 drp Eye-Both BID 05/02/22 [History Confirmed 05/03/22] dorzolamide 22.3 mg-timolol 6.8 mg/mL eye drops 1 drp Eye-Both BID 05/02/22 [History Confirmed 05/03/22] latanoprost 0.005 % eye drops 1 drp Eye-Both QPM 05/02/22 [History Confirmed 05/03/22] vitamin A-vitamin C-vit E-min tablet 1 tab PO DAILY 05/02/22 [History Confirmed 05/03/22] acetaminophen 500 mg tablet 1,000 mg PO DAILY PRN Pain 05/03/22 [History Confirmed 05/03/22] Dictated By: Isaías Jordan II, DO DD/ 1449 Signed By: <Electronically signed by Isaías Jordan II, DO> 05/03/22 0968 [facility] Work Phone: [phone]) 903-297910-01-2022 History general Narrative - Reported* Type Description Date Medical History Colon cancer Medical History Pelvic congestion syndrome Surgical History Bowel resection 04/2022 Surgical History C -Section 2005 Surgical History Hernia repair 2001 Surgical History Louise teeth [facility] [employer] Other 09-07-2022 NoteOPERATIVE NOTE OPERATION DATE: 03/13/2022 REFERRING PHYSICIAN: Sandro Chin M.D. SURGEON: Clint Jean Baptiste D.O. ANESTHESIA: Propofol by anesthesiologist for general. ANESTHESIOLOGIST: KIRAN PREOPERATIVE DIAGNOSIS: Bilateral lower quadrant abdominal pain. POSTOPERATIVE DIAGNOSIS: Sigmoid colon mass, rule out cancer at 35 cm. PROCEDURE: Colonoscopy to 35 cm, unable to pass the scope any further due to obstructive mass with biopsies and then colonoscopy with tattooing with Shweta ink of the tumor, sigmoid colon. INDICATIONS: This 56-year-old female presented for colonoscopy due to bilateral lower quadrant abdominal pain since September of this year. She had a CT scan of the abdomen and pelvis performed at the [facility], January 09, which was read as normal. Because of continued symptoms, colonoscopy was recommended. PROCEDURE: At the time of endoscopy, I could not pass the scope passed 35 cm due to a tumor in the sigmoid colon. Biopsies were taken. It was almost obstructing and circumferential. I do not know the exact size. The area was tattooed as well. Hemostasis was maintained. There was minimal blood loss. The scope was then withdrawn from the rectum. No other abnormalities were found. PLAN: The plan will be to see pathology and then obtain outpatient BE at a later date. After receiving path and diagnosis, then she will need surgical therapy.[id number] NotePatient Education Materials Follows: Laceration Care, Adult A laceration is a cut that may go through all layers of the skin. The cut may also go into the tissue that is right under the skin. Some cuts heal on their own. Others need to be closed with stitches(sutures), yuridia, skin adhesive strips, or skin glue. Taking care of your injury lowers your riskof infection, helps your injury to heal better, and may prevent scarring. Supplies needed: ? Soap. ? Water. ? Hand candy spreader helper. ? Bandage (dressing). ? Antibiotic ointment. ? Clean towel. How to take care of your cut Wash your hands with soap and water before touching your wound or changing your bandage. If soap and water are not available, use hand candy spreader helper. If your doctor used stitches or yuridia: ? Keep the wound clean and dry. ? If you were given a bandage, change it at least once a day as told by your doctor. You should also change it if it gets wet or dirty. ? Keep the wound completely dry for the first 24 hours, or as told by your doctor. After that, you may take a shower or a bath. Do not get the wound soaked in water until after the stitches or yuridia have been removed. ? Clean the wound once a day, or as told by your doctor: ? Wash the wound with soap and water. ? Rinse the wound with water to remove all soap. ? Pat the wound dry with a clean towel. Do not rub the wound. ? After you clean the wound, put a thin layer of antibiotic ointment on it as told by your doctor. This ointment: ? Helps to prevent infection. ? Keeps the bandage from sticking to the wound. ? Have your stitches or yuridia removed as told by your doctor. If your doctor used skin adhesive strips: ? Keep the wound clean and dry. ? If you were given a bandage, you should change it at least once a day as told by your doctor. Youshould also change it if it gets wet or dirty. ? Do not get the skin adhesive strips wet. You can take a shower or a bath, but keep the wound dry. ? If the wound gets wet, pat it dry with a clean towel. Do not rub the wound. ? Skin adhesive strips fall off on their own. You can trim the strips as the wound heals. Do not remove any strips that are still stuck to the wound. They will fall off after a while. If your doctor used skin glue: ? Try to keep your wound dry, but you may briefly wet it in the shower or bath. Do not soak the wound in water, such as by swimming. ? After you take a shower or a bath, gently pat the wound dry with a clean towel. Do not rub the wound. ? Do not do any activities that will make you really sweaty until the skin glue has fallen off on its own. ? Do not apply liquid, cream, or ointment medicine to your wound while the skin glue is still on. ? If you were given a bandage, you should change it at least once a day or as told by your doctor. You should also change it if it gets dirty or wet. ? If a bandage is placed over the wound, do not let the tape touch the skin glue. ? Do not pick at the glue. The skin glue usually stays on for 5?10 days. Then, it falls off the skin. General instructions ? Take ynst-pof-zsyzelt and prescription medicines only as told by your doctor. ? If you were given antibiotic medicine or ointment, take or apply it as told by your doctor. Do not stop using it even if your condition improves. ? Do not scratch or pick at the wound. ? Check your wound every day for signs of infection. Watch for: ? Redness, swelling, or pain. ? Fluid, blood, or pus. ? Raise (elevate) the injured area above the level of your heart while you are sitting or lying down. ? If directed, put ice on the affected area: ? Put ice in a plastic bag. ? Place a towel between your skin and the bag. ? Leave the ice on for 20 minutes, 2?3 times a day. ? Prevent scarring by covering your wound with sunscreen of at least 30 SPF whenever you are outside after your wound has healed. ? Keep all follow-up visits as told by your doctor. This is important. Get help if: ? You got a tetanus shot and you have any of these problems at the injection site: ? Swelling. ? Very bad pain. ? Redness. ? Bleeding. ? You have a fever. ? A wound that was closed breaks open. ? You notice a bad smell coming from your wound or your bandage. ? You notice something coming out of the wound, such as wood or glass. ? Medicine does not relieve your pain. ? You have more redness, swelling, or pain at the site of your wound. ? You have fluid, blood, or pus coming from your wound. ? You notice a change in the color of your skin near your wound. ? You need to change the bandage often because fluid, blood, or pus is coming from the wound. ? You start to have a new rash. ? You start to have numbness around the wound. Get help right away if: ? You have very bad swelling around the wound. ? Your pain suddenly gets worse and is very bad. ? You notice painful lumps near the wound or anywhere on your body. (more content not included)...[facility] Onset Date Resolution Status Colon cancer acute Encounter for chemotherapy management acute [facility] Work Phone: Evaluation note* Diagnosis Onset Date Resolution Status Abnormal LFTs acute Chemotherapy-induced peripheral neuropathy acute Colon cancer acute Encounter for chemotherapy management acute [facility] Work Phone: Evaluation noteNo assessment information available [facility] Work Phone: Evaluation note* Diagnosis Onset Date Resolution Status Colon cancer acute Abnormal LFTs acute Chemotherapy-induced peripheral neuropathy acute Colon cancer acute Encounter for chemotherapy management acute Salivary gland hypertrophy a cute [facility] Work Phone: Evaluation note* Diagnosis Onset Date Resolution Status Salivary gland hypertrophy a cute Abnormal LFTs acute Chemotherapy-induced peripheral neuropathy acute Colon cancer acute Encounter for chemotherapy management acute [facility] Work Phone: Evaluation note* Diagnosis History of colon cancer- Primary Personal history of malignant neoplasm of large intestine [facility] Proceed with Treatment Time Frame: 08/19/22, Location: Determined By Patient [facility] Work Phone: Hospital Discharge instructionsAmbulatory Orders* Referral to ENT Time Frame: 11/17/23, Location: None Selected [facility] Work Phone: InstructionsNot on filedocumented in this encounter [facility] Author Dayan Magallon [facility] June 03, 2022 8:41am Note Date/Time June 03, 2022 8:14am [facility] at [address] [address] Hem/Onc Follow Up Note - OP Signed Patient: Marysol Gardner MR#: [id number] : 1965 Acct:[id number] Age/Sex: 57 / F Type: REG RCR Copies to: MD Clint Bernstein,DO~ Subjective Date/Time of Service: Date of Service: 06/03/2022 Time of Service: 08:14 Chief Complaint: Patient is here for a one week follow up with outside labs for review. Patient reports loose stools, sore gums, little fatigue, and nausea after treatment. No other concerns voiced at this time. 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 She began having irregular bowel movements in September 2021. She also noted increasing bilateral lower abdominal pain. She also had about a 10 pound weight loss prior to surgery. Her only other medical history is glaucoma. Primary care provider is Dr. Jose Guadalupe Raya. Outpatient medications include a few eyedrops, plus Ocuvite. Colonoscopy was performed on March 13, 2022, scope could not be passed [id number] cm due to a tumor in the sigmoid colon. Almost obstructing and circumferential. A CT of the abdomen and pelvis from March 27, 2022 with IV contrast noted normal lung bases, asymmetric thickening of the right lateral wall of the mid sigmoid colon and a nearby 2 cm segment of mild circumferential wall thickening of the mid and distal descending colon, most likely peristalsis. No obvious adenopathy. She had a sigmoid colon resection on April 10, 2022. 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 T4aN2a Stage IIIC. Mismatch repair proteins were all intact. Extranodal extension wasnot seen. Angioinvasion is present. Margins of previous appear free of neoplasm. Grade 2, 3.3 cm lesion. No evidence of perineural invasion. This had invaded through the colon and into the visceral peritoneum. The tumor extended deeply into the serosal adipose tissue to the inked serosal surface. 05/27/22 she had some confusion about schedule of chemotherapy. she will start her FOLFOXtoday. she is doing well overall. she is here with her who has a traumatic brain injury from may years agobut able to take care of himself and walk with a cane. she lives with 16 year old son. 06/03/2022: Here for 8 day toxicity check after initiation of adjuvant FOLFOX chemotherapy for Stage IIIc colon cancer. Had a little bit of cold sensitivity, decreased appetite, fatigue and loose stool. Overall, very mild - tolerable; took Zofran x 1. 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 Labs reviewed on patient's chart from [place] - no significant cytopenias or electrolyte, renal/hepatic issues. - Summary of Therapies Summary of Therapies: FOLFOX chemotherapy (adjuvant) 1. Cycle 1, Day 1: 05/27/2022 Subjective/ROS - Narrative: As per the HPI, otherwise 10 point review of systems is negative. [facility] - Medical History Medical History: Medical History (Last Reviewed 05/03/22 @ 14:36 by Ember Rodriguez) Glaucoma of both eyes bleeding - Surgical History Surgical History: Surgical History (Last Updated 05/02/22 @ 08:51 by Ember Rodriguez) History of History of hernia repair History of wisdom tooth extraction S/P colon resection Apr 2022 - Family History Family History: Family History (Last Updated 05/03/22 @ 14:37 by Ember Rodriguez) Mother Diabetes Dementia Hypertension Heart attack Glaucoma Father Parkinsonism Hypertension Heart attack Glaucoma - Social History Smoking Status: Never smoker Substance Use Type: None Home Medications & Allergies Allergies hydrocodone Allergy (Verified 05/03/22 14:38) Nausea Home Medications brimonidine 0.2 % eye drops 1 drp Eye-Both BID 05/02/22 [History Confirmed 06/03/22] dorzolamide 22.3 mg-timolol 6.8 mg/mL eye drops 1 drp Eye-Both BID 05/02/22 [History Confirmed 06/03/22] latanoprost 0.005 % eye drops 1 drp Eye-Both QPM 05/02/22 [History Confirmed 06/03/22] acetaminophen 500 mg tablet 1,000 mg PO DAILY PRN Pain 05/03/22 [History Confirmed 06/03/22] ondansetron HCl 8 mg tablet 8 mg PO Q8H PRN Nausea #30 tabs 05/03/22 [Rx Confirmed 06/03/22] ascorbic acid (vitamin C) 1,000 mg capsule,extended release 1 cap PO DAILY 05/27/22 [History Confirmed 06/03/22] cholecalciferol (vitamin D3) 25 mcg (1,000 unit) capsule 25 mcg PO DAILY 05/27/22 [History Confirmed 06/03/22] Objective - Resuscitation Status Resuscitation Status: Full Code - Height/Weight Height/Weight: Height 5 ft 4 in Weight 74.1 kg BSA for Today's Weight 1.84 - Vital Signs Vital Signs: 06/03/22 08:08 Pulse Rate [Left Brachial] 56 L Respiratory Rate 20 Blood Pressure [Left Arm] 137/90 02 Sat by Pulse Oximetry 98 Oxygen Delivery Method Room Air Physical Exam Narrative: ECOG PS: 0 Pain: 0/10 General : patient is alert and oriented to person place and time, no acute distress. HEENT; oral mucosa pink/moist; no lesions/exudate; no JVD or thyromegaly. Lymph: no cervical, supraclavicular, axillary adenopathy. Heart: regular rate and rhythm no murmurs rubs or gallops. Abdomen: soft nontender nondistended, no hepatosplenomegaly. abdomen well healed. Lungs: cta bl, no wheezes, rales, rhonchi. Extremities: no clubbing cyanosis. Neurological: no focal/sensory deficits; alert and oriented x 3. - ECOG Performance Status ECOG Score: 0 Assessment and Plan (1) Colon cancer 1.) T4aN2A Stage IIIc colon adenocarcinoma. --pretreatment CT scan with no evidence metastatic disease. --consented for 6 months adjuvant FOLFOX chemotherapy. discussed very high risk for recurrence. --will re-image when she has completed adjuvant therapy. Offered signatera testing and declined for now. will consider when she stops herchemotherapy. 06/03/2022: Commenced therapy with Cycle 1, Day 1 on 05/27/2022. - well tolerated; no significant issues or toxicities at 8 day toxicity visit. ---- mild fatigue, mild cold sensitivity, and a few loose stools. Needed to takeZofran x 1. - labs are stable; patient to go back to work today, works at [employer] as a nurse. - plan Cycle 2, Day 1: 06/10/2022 - follow up prior to Cycle 3, Day 1 on 06/24/2022. 2.) Encounter for monitoring chemotherapy - Cycle 1, Day 1: 05/27/2022 (full dose) - Cycle 2, Day 1: 06/10/2022 (2) Encounter for chemotherapy management - Chemo Plan Goal of Treatment: Curative - Time with Patient Time Spent with Patient (Follow Up Visit): 25 minutes Coordination of Care & Counseling Time: Greater than 50% of time spent with patient was for coordination of care (as documented) and [id number] counseling of patient and/or family. Dictated By: Dayan Magallon APRN DD/ Signed By: <Electronically signed by OLIVIA Magallon> 06/03/22 0841 [facility] Work Phone: Progress note Author Isaías Jordan [facility] June 24, 2022 9:49am Note Date/Time June 24, 2022 9:42am [facility] [place] [id number] Hem/Onc Follow Up Note - OP Signed Patient: Marysol Gardner MR#: [id number] : 1965 Acct:[id number] Age/Sex: 57 / F Type: REG RCR Copies to: MD Clint Bernstein,FRAN Date of Service: 06/24/2022 Time of Service: 09:40 - Assessment & Plan (1) Colon cancer Plan: 1.) T4aN2A Stage IIIc colon adenocarcinoma. --pretreatment CT scan with no evidence metastatic disease. --consented for 6 months adjuvant FOLFOX chemotherapy. discussed very high risk for recurrence. --will re-image when she has completed adjuvant therapy. Offered signatera testing and declined for now. will consider when she stops herchemotherapy. Cycle 1, Day 1 on 05/27/2022. Cycle 2, Day 1: 06/10/2022 Cycle 3, Day 1 on 06/24/2022. discussed colonoscopy, will repeat once she has completed chemotherapy. Neuropathy. mild. mostly resolves by chemo day currently6. (2) Encounter for chemotherapy management Follow Up Instructions: cotn folfox q2wks. f/u with me or prototype special build in a month. cbc, cmp on treatemet days. cea prior to f/u. 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 She began having irregular bowel movements in September 2021. She also noted increasing bilateral lower abdominal pain. She also had about a 10 pound weight loss prior to surgery. Her only other medical history is glaucoma. Primary care provider is Dr. Jose Guadalupe Raya. Outpatient medications include a few eyedrops, plus Ocuvite. Colonoscopy was performed on March 13, 2022, scope could not be passed [id number] cm due to a tumor in the sigmoid colon. Almost obstructing and circumferential. A CT of the abdomen and pelvis from March 27, 2022 with IV contrast noted normal lung bases, asymmetric thickening of the right lateral wall of the mid sigmoid colon and a nearby 2 cm segment of mild circumferential wall thickening of the mid and distal descending colon, most likely peristalsis. No obvious adenopathy. She had a sigmoid colon resection on April 10, 2022. 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 T4aN2a Stage IIIC. Mismatch repair proteins were all intact. Extranodal extension wasnot seen. Angioinvasion is present. Margins of previous appear free of neoplasm. Grade 2, 3.3 cm lesion. No evidence of perineural invasion. This had invaded through the colon and into the visceral peritoneum. The tumor extended deeply into the serosal adipose tissue to the inked serosal surface. 05/27/22 she had some confusion about schedule of chemotherapy. she will start her FOLFOXtoday. she is doing well overall. she is here with her who has a traumatic brain injury from may years agobut able to take care of himself and walk with a cane. she lives with 16 year old son. 06/03/2022: Here for 8 day toxicity check after initiation of adjuvant FOLFOX chemotherapy for Stage IIIc colon cancer. Had a little bit of cold sensitivity, decreased appetite, fatigue and loose stool. Overall, very mild - tolerable; took Zofran x 1. 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 Labs reviewed on patient's chart from [place] - no significant cytopenias or electrolyte, renal/hepatic issues. 06/24/22 she is doing ok overall. she had a bit harder time with c2. loose stool for a week or two afterwards, mild headaches. she has neuropathy that persists slightly even today. She is due for c3 today. - Physical Exam ECOG PS: 0 Pain: 0/10 General : patient is alert and oriented to person place and time, no acute distress. HEENT; oral mucosa pink/moist; no lesions/exudate; no JVD or thyromegaly. Lymph: no cervical, supraclavicular, axillary adenopathy. Heart: regular rate and rhythm no murmurs rubs or gallops. Abdomen: soft nontender nondistended, no hepatosplenomegaly. abdomen well healed. Lungs: cta bl, no wheezes, rales, rhonchi. Extremities: no clubbing cyanosis. Neurological: no focal/sensory deficits; alert and oriented x 3. Goal of Treatment: Curative - Time with Patient Coordination of Care & Counseling Time: Greater than 50% of time spent with patient was for coordination of care (as documented) and [id number] counseling of patient and/or family. [facility] - Medical History Medical History: Medical History (Last Reviewed 05/03/22 @ 14:36 by Ember Rodriguez) Glaucoma of both eyes bleeding - Surgical History Surgical History: Surgical History (Last Updated 05/02/22 @ 08:51 by Ember Rodriguez) History of History of hernia repair History of wisdom tooth extraction S/P colon resection Apr 2022 - Family History Family History: Family History (Last Updated 05/03/22 @ 14:37 by Ember Rodriguez) Mother Diabetes Dementia Hypertension Heart attack Glaucoma Father Parkinsonism Hypertension Heart attack Glaucoma - Social History Smoking Status: Never smoker Substance Use Type: None Additional Data - Additional Objective Data Height/Weight: Height 5 ft 4 in Weight 75 kg BSA for Today's Weight 1.83 Vital Signs: 06/24/22 09:08 Temperature 98.0 F Pulse Rate [Left Brachial] 61 Respiratory Rate 16 Blood Pressure [Left Arm] 137/93 02 Sat by Pulse Oximetry 98 Oxygen Delivery Method Room Air - Home Medications and Allergies Allergies/Adverse Reactions: Allergies hydrocodone Allergy (Verified 06/24/22 09:08) Nausea Home Medications: Home Medications brimonidine 0.2 % eye drops 1 drp Eye-Both BID 05/02/22 [History Confirmed 06/24/22] dorzolamide 22.3 mg-timolol 6.8 mg/mL eye drops 1 drp Eye-Both BID 05/02/22 [History Confirmed 06/24/22] latanoprost 0.005 % eye drops 1 drp Eye-Both QPM 05/02/22 [History Confirmed 06/24/22] acetaminophen 500 mg tablet 1,000 mg PO DAILY PRN Pain 05/03/22 [History Confirmed 06/24/22] ondansetron HCl 8 mg tablet 8 mg PO Q8H PRN Nausea #30 tabs 05/03/22 [Rx Confirmed 06/24/22] ascorbic acid (vitamin C) 1,000 mg capsule,extended release 1 cap PO DAILY 05/27/22 [History Confirmed 06/24/22] cholecalciferol (vitamin D3) 25 mcg (1,000 unit) capsule 25 mcg PO DAILY 05/27/22 [History Confirmed 06/24/22] Dictated By: Isaías Jordan II, DO DD/ [id number] Signed By: <Electronically signed by Isaías Jordan II, DO> 06/24/22 0949 [facility] Work Phone: Progress note Author Dayan [facility] July 22, 2022 11:46am Note Date/Time July 22, 2022 1 1:36am [facility] [place] [address] Hem/Onc Follow Up Note - OP Signed Patient: Marysol Gardner MR#: [id number] : 1965 Acct:[id number] Age/Sex: 57 / F Type: REG RCR Copies to: MD Clint Bernstein DO~ Subjective Date/Time of Service: Date of Service: 07/22/2022 Time of Service: 11:34 Chief Complaint: Patient is here today for a one month follow up visit for coloncancer and go over labs. 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 She began having irregular bowel movements in September 2021. She also noted increasing bilateral lower abdominal pain. She also had about a 10 pound weight loss prior to surgery. Her only other medical history is glaucoma. Primary care provider is Dr. Jose Guadalupe Raya. Outpatient medications include a few eyedrops, plus Ocuvite. Colonoscopy was performed on March 13, 2022, scope could not be passed [id number] cm due to a tumor in the sigmoid colon. Almost obstructing and circumferential. A CT of the abdomen and pelvis from March 27, 2022 with IV contrast noted normal lung bases, asymmetric thickening of the right lateral wall of the mid sigmoid colon and a nearby 2 cm segment of mild circumferential wall thickening of the mid and distal descending colon, most likely peristalsis. No obvious adenopathy. She had a sigmoid colon resection on April 10, 2022. 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 T4aN2a Stage IIIC. Mismatch repair proteins were all intact. Extranodal extension wasnot seen. Angioinvasion is present. Margins of previous appear free of neoplasm. Grade 2, 3.3 cm lesion. No evidence of perineural invasion. This had invaded through the colon and into the visceral peritoneum. The tumor extended deeply into the serosal adipose tissue to the inked serosal surface. 05/27/22 she had some confusion about schedule of chemotherapy. she will start her FOLFOXtoday. she is doing well overall. she is here with her who has a traumatic brain injury from november years agobut able to take care of himself and walk with a cane. she lives with 16 year old son. 06/03/2022: Here for 8 day toxicity check after initiation of adjuvant FOLFOX chemotherapy for Stage IIIc colon cancer. Had a little bit of cold sensitivity, decreased appetite, fatigue and loose stool. Overall, very mild - tolerable; took Zofran x 1. 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 Labs reviewed on patient's chart from [place] - no significant cytopenias or electrolyte, renal/hepatic issues. 06/24/22 she is doing ok overall. she had a bit harder time with c2. loose stool for a week or two afterwards, mild headaches. she has neuropathy that persists slightly even today. She is due for c3 today. 07/22/2022: She is doing okay - fatigued in general; has a couple days of loose bowels and mild nausea. Cold induced neuropathy x1 week following treatment; then resolves. Still working Denies focal signs/symptoms of infection; no weight loss; appetite stable - Summary of Therapies Summary of Therapies: FOLFOX chemotherapy (adjuvant) 1. Cycle 1, Day 1: 05/27/2022 Subjective/ROS - Narrative: As per the HPI, otherwise 10 point review of systems is negative. [facility] - Medical History Medical History: Medical History (Last Reviewed 05/03/22 @ 14:36 by Ember Rodriguez) Glaucoma of both eyes bleeding - Surgical History Surgical History: Surgical History (Last Updated 05/02/22 @ 08:51 by Ember Rodriguez) History of History of hernia repair History of wisdom tooth extraction S/P colon resection Apr 2022 - Family History Family History: Family History (Last Updated 05/03/22 @ 14:37 by Ember Rodriguez) Mother Diabetes Dementia Hypertension Heart attack Glaucoma Father Parkinsonism Hypertension Heart attack Glaucoma - Social History Smoking Status: Never smoker Substance Use Type: None Home Medications & Allergies Allergies hydrocodone Allergy (Verified 07/22/22 09:43) Nausea Home Medications brimonidine 0.2 % eye drops 1 drp Eye-Both BID 05/02/22 [History Confirmed 07/22/22] dorzolamide 22.3 mg-timolol 6.8 mg/mL eye drops 1 drp Eye-Both BID 05/02/22 [History Confirmed 07/22/22] latanoprost 0.005 % eye drops 1 drp Eye-Both QPM 05/02/22 [History Confirmed 07/22/22] acetaminophen 500 mg tablet 1,000 mg PO DAILY PRN Pain 05/03/22 [History Confirmed 07/22/22] ondansetron HCl 8 mg tablet 8 mg PO Q8H PRN Nausea #30 tabs 05/03/22 [Rx Confirmed 07/22/22] ascorbic acid (vitamin C) 1,000 mg capsule,extended release 1 cap PO DAILY 05/27/22 [History Confirmed 07/22/22] cholecalciferol (vitamin D3) 25 mcg (1,000 unit) capsule 25 mcg PO DAILY 05/27/22 [History Confirmed 07/22/22] Objective - Height/Weight Height/Weight: Height 5 ft 4 in Weight 75.7 kg BSA for Today's Weight 1.85 - Vital Signs Vital Signs: 07/22/22 09:43 Temperature 97.8 F Pulse Rate [Left Brachial] 67 Respiratory Rate 16 Blood Pressure [Left Arm] 149/92 H 02 Sat by Pulse Oximetry 98 Oxygen Delivery Method Room Air - Distress Screening Distress Screen Results: Emotional Needs Identified? No Support System Spouse,Child/Children,Friend Ineffective Coping Symptoms History of Chronic Illness Physical Exam Narrative: ECOG PS: 1 (fatigue) Pain: 0/10 General : patient is alert and oriented to person place and time, no acute distress. HEENT; oral mucosa pink/moist; no lesions/exudate; no JVD or thyromegaly. Lymph: no cervical, supraclavicular, axillary adenopathy. Heart: regular rate and rhythm no murmurs rubs or gallops. Abdomen: soft nontender nondistended, no hepatosplenomegaly. abdomen well healed. Lungs: cta bl, no wheezes, rales, rhonchi. Extremities: no clubbing cyanosis. Neurological: no focal/sensory deficits; alert and oriented x 3. - ECOG Performance Status ECOG Score: 1 Results - Labs Labs: Diagram of Most Recent CBC and CMP 07/11/22 14:35 Assessment and Plan (1) Colon cancer 1.) T4aN2A Stage IIIc colon adenocarcinoma. --pretreatment CT scan with no evidence metastatic disease. --consented for 6 months adjuvant FOLFOX chemotherapy. discussed very high risk for recurrence. --will re-image when she has completed adjuvant therapy. --CEA level - 8.1 on labs Was previously offered signatera testing and declined for now. will consider when she stops her chemotherapy. Cycle 1, Day 1 on 05/27/2022. Cycle 2, Day 1: 06/10/2022 Cycle 3, Day 1 06/24/2022 Cycle 4, Day 1: 07/09/2022 Cycle 5, Day 1: 07/22/2022 discussed colonoscopy, will repeat once she has completed chemotherapy. 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 - mild - present x 1 week; then resolves by chemotherapy day 3.) Abnormal LFTs - slightly elevated, but stable - will follow for now 4.) Encounter for antineoplastic therapy Cycle 1, Day 1 adjuvant FOLFOX: 05/27/2022 Continue x 12 cycles (2) Chemotherapy-induced peripheral neuropathy (3) Abnormal LFTs (4) Encounter for chemotherapy management - Chemo Plan Goal of Treatment: Curative - Time with Patient Time Spent with Patient (Follow Up Visit): 35 minutes Coordination of Care & Counseling Time: Greater than 50% of time spent with patient was for coordination of care (as documented) and [id number] counseling of patient and/or family. Dictated By: Dayan Magallon APRN DD/ [id number] Signed By: <Electronically signed by OLIVIA Magallon> 07/22/22 1146 [facility] Work Phone: Progress note Author Isaías Jordan [facility] September 02, 2022 9:09am Note Date/Time September 02, 2022 8:58am [facility] [place] [address] Hem/Onc Follow Up Note - OP Signed Patient: Marysol Gardner MR#: [id number] : 1965 Acct:[id number] Age/Sex: 57 / F Type: REG RCR Copies to: MD Clint Bernstein,DO~ Date of Service: 09/02/2022 Time of Service: 08:57 - Assessment & Plan (1) Colon cancer Plan: 1.) T4aN2A Stage IIIc colon adenocarcinoma. --pretreatment CT scan with no evidence metastatic disease. --consented for 6 months adjuvant FOLFOX chemotherapy. discussed very high risk for recurrence. --will re-image when she has completed adjuvant therapy. --CEA level - 8.1 on labs Was previously offered signatera testing and declined for now. will consider when she stops her chemotherapy. Cycle 1, Day 1 on 05/27/2022. Cycle 2, Day 1: 06/10/2022 Cycle 3, Day 1 06/24/2022 Cycle 4, Day 1: 07/09/2022 Cycle 5, Day 1: 07/22/2022 Cycle 6, Day 1: 08/05/2022 Cycle 7, Day 1: 08/19/2022 - (d/w Dr. Jordan - will dose reduce Oxaliplatin by25% and hold bolus 5FU today); no recommendations for growth factor; due to elevated transaminases; neutropenia and thrombocytopenia c8d1 on 09/02/22 (continue to hold the 5fu bolus, raise oxali to 100%). her anc was 1.1 prior to today and ast/alt normal. discussed colonoscopy, will repeat once she has completed chemotherapy. 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 chemo every 2 to 3 weeks. cbc, cmp prior to chemo f/u in 4 or 6 weeks with me or prototype special build. - History of Present Illness Chief Complaint: Patient is here for a 2 week follow up with outside labs for review, prior to treatment today. States she is feeling remarkably better. 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 She began having irregular bowel movements in September 2021. She also noted increasing bilateral lower abdominal pain. She also had about a 10 pound weight loss prior to surgery. Her only other medical history is glaucoma. Primary care provider is Dr. Jose Guadalupe Raya. Outpatient medications include a few eyedrops, plus Ocuvite. Colonoscopy was performed on March 13, 2022, scope could not be passed [id number] cm due to a tumor in the sigmoid colon. Almost obstructing and circumferential. A CT of the abdomen and pelvis from March 27, 2022 with IV contrast noted normal lung bases, asymmetric thickening of the right lateral wall of the mid sigmoid colon and a nearby 2 cm segment of mild circumferential wall thickening of the mid and distal descending colon, most likely peristalsis. No obvious adenopathy. She had a sigmoid colon resection on April 10, 2022. 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 T4aN2a Stage IIIC. Mismatch repair proteins were all intact. Extranodal extension wasnot seen. Angioinvasion is present. Margins of previous appear free of neoplasm. Grade 2, 3.3 cm lesion. No evidence of perineural invasion. This had invaded through the colon and into the visceral peritoneum. The tumor extended deeply into the serosal adipose tissue to the inked serosal surface. 05/27/22 she had some confusion about schedule of chemotherapy. she will start her FOLFOXtoday. she is doing well overall. she is here with her who has a traumatic brain injury from may years agobut able to take care of himself and walk with a cane. she lives with 16 year old son. 06/03/2022: Here for 8 day toxicity check after initiation of adjuvant FOLFOX chemotherapy for Stage IIIc colon cancer. Had a little bit of cold sensitivity, decreased appetite, fatigue and loose stool. Overall, very mild - tolerable; took Zofran x 1. 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 Labs reviewed on patient's chart from [place] - no significant cytopenias or electrolyte, renal/hepatic issues. 06/24/22 she is doing ok overall. she had a bit harder time with c2. loose stool for a week or two afterwards, mild headaches. she has neuropathy that persists slightly even today. She is due for c3 today. 07/22/2022: She is doing okay - fatigued in general; has a couple days of loose bowels and mild nausea. Cold induced neuropathy x1 week following treatment; then resolves. Still working Denies focal signs/symptoms of infection; no weight loss; appetite stable 08/19/2022: Patient is here for follow up prior to Cycle 7 adjuvant FOLFOX Mild neuropathy; mostly cold induced - usually occurs 3-4 days after pump DC andthen resolves Appetite is stable; no weight loss She is primarily concerned about her liver tests; she is noted to have gradual increase of LFT's ANC - 900; platelet count 92,000. No focal signs/symptoms of infection 09/02/22 She is doing well overall. her neuropathy has improved. - Physical Exam ECOG PS: 1 (fatigue) Pain: 0/10 General : patient is alert and oriented to person place and time, no acute distress. HEENT; oral mucosa pink/moist; no lesions/exudate; no JVD or thyromegaly. Lymph: no cervical, supraclavicular, axillary adenopathy. Heart: regular rate and rhythm no murmurs rubs or gallops. Abdomen: soft nontender nondistended, no hepatosplenomegaly. abdomen well healed. Lungs: cta bl, no wheezes, rales, rhonchi. Extremities: no clubbing cyanosis. Neurological: no focal/sensory deficits; alert and oriented x 3. Goal of Treatment: Curative - Time with Patient Coordination of Care & Counseling Time: Greater than 50% of time spent with patient was for coordination of care (as documented) and [id number] counseling of patient and/or family. [facility] - Medical History Medical History: Medical History (Last Reviewed 05/03/22 @ 14:36 by Ember Rodriguez) Glaucoma of both eyes bleeding - Surgical History Surgical History: Surgical History (Last Updated 05/02/22 @ 08:51 by Ember Rodriguez) History of History of hernia repair History of wisdom tooth extraction S/P colon resection Apr 2022 - Family History Family History: Family History (Last Updated 05/03/22 @ 14:37 by Ember Rodriguez) Mother Diabetes Dementia Hypertension Heart attack Glaucoma Father Parkinsonism Hypertension Heart attack Glaucoma - Social History Smoking Status: Never smoker Substance Use Type: None Additional Data - Additional Objective Data Height/Weight: Height 5 ft 4 in Weight 76.6 kg BSA for Today's Weight 1.84 Vital Signs: 09/02/22 08:36 Temperature 98 F Pulse Rate [Left Brachial] 65 Respiratory Rate 20 Blood Pressure [Left Arm] 147/90 H 02 Sat by Pulse Oximetry 99 Oxygen Delivery Method Room Air Distress Screening: RN Distress Screening Start: 05/03/22 14:29 Freq: Status: Active Protocol: Document 08/19/22 10:11 AG (Rec: 08/19/22 10:12 AG [id number]) Distress Screening Distress Score: 4 Day to Day Concerns Insurance,Money Physical Concerns Feeling tired or a lack of energy Emotional Concerns Worry,Feeling uncertain about the future Distress Screening Total 4 Distress score of 4 or more discussed Yes with patient? - Lab Results Diagram of Most Recent CBC and CMP 07/11/22 14:35 - Home Medications and Allergies Allergies/Adverse Reactions: Allergies hydrocodone Allergy (Verified 07/22/22 09:43) Nausea Home Medications: Home Medications brimonidine 0.2 % eye drops 1 drp Eye-Both BID 05/02/22 [History Confirmed 09/02/22] dorzolamide 22.3 mg-timolol 6.8 mg/mL eye drops 1 drp Eye-Both BID 05/02/22 [History Confirmed 09/02/22] latanoprost 0.005 % eye drops 1 drp Eye-Both QPM 05/02/22 [History Confirmed 09/02/22] acetaminophen 500 mg tablet 1,000 mg PO DAILY PRN Pain 05/03/22 [History Confirmed 09/02/22] ondansetron HCl 8 mg tablet 8 mg PO Q8H PRN Nausea #30 tabs 05/03/22 [Rx Confirmed 09/02/22] ascorbic acid (vitamin C) 1,000 mg capsule,extended release 1 cap PO DAILY 05/27/22 [History Confirmed 09/02/22] cholecalciferol (vitamin D3) 25 mcg (1,000 unit) capsule 25 mcg PO DAILY 05/27/22 [History Confirmed 09/02/22] omeprazole magnesium 10 mg oral suspension,delayed release (Prilosec) 20 mg PO DAILY #60 ea 08/05/22 [Rx Confirmed 09/02/22] prochlorperazine maleate 10 mg tablet (Compazine) 10 mg PO Q6H PRN Nausea And Vomiting #60 tabs 08/05/22 [Rx Confirmed 09/02/22] carica papaya (Papaya Enzyme tablet) 1 tab PO DAILY 08/19/22 [History Confirmed 09/02/22] Dictated By: Isaías Jordan II, DO DD/ [id number] Signed By: <Electronically signed by Isaías Jordan II, DO> 09/02/22 0909 [facility] Work Phone: Progress note Author Isaías Jordan [facility] January 19, 2024 12:05pm Note Date/Time January 19, 2024 11:[address] [place] [address] [place] [address] Cancer Center Note Signed Patient: Marysol Gardner MR#: [id number] : 1965 Acct:[id number] Age/Sex: 58 / F Type: REG AMB Date of Service: 01/19/24 Copies to: Sandro Chin MD~ Assessment & Plan A/P Patient Instructions: ct c/a/p with contrast in 6 months and f/u after. cbc, cmp, cea prior to contrast. refer for port removal. CHEMO PLAN Treatment Plan Oxaliplatin, Leucorvorin, and 5-Fluorouracil (FOLFOX) Q14D Clinical Indication No Indication Cycle Number Last Admin 12 Completed Cycle Day Next Admin No Active Chemotherapy History of Present Illness HPI ASSESSMENT/PLAN T4aN2A Stage IIIc colon adenocarcinoma. discussed very high risk for recurrence. CEA level - 8.1 on labs down to 3 range by mar 2023. completed 10 cycles adjuvant FOLFOX from may 2022 through october 2022. she required significant dose reductions for a few reasons by the end. CT A/p was negative in february 2023. will continue to follow with imaging every 3 to 6 months for 2 years then yearly through 5 years. We chose not to monitor signatera, this has never been sent. May 2023 colonoscopy no concerns, to repeat in may 2026. Jun [address] scans without evidence of recurrence. CEA stable. September 2023 CT scans stable without evidence of recurrence. Labs ok. Will repeat in 4 months january 2024 scan sstable without evidence recurrence. we will repeat in 6 months. Previous chemotherapy induced neuropathy resolved as of Jun 2023 PHYSICAL EXAMINATION ECOG PS:0 General : patient is alert and oriented to person place and time, no acute distress. Neck: no JVD or thyromegaly. Lymph: no cervical, supraclavicular, axillary adenopathy. Heart: regular rate and rhythm no murmurs rubs or gallops. Abdomen: soft, nontender,, nondistended, no hepatosplenomegaly. Lungs: clear to auscultation bilaterally. No wheezes, rales, rhonchi. 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 She began having irregular bowel movements in September 2021. She also noted increasing bilateral lower abdominal pain. She also had about a 10 pound weight loss prior to surgery. Her only other medical history is glaucoma. Primary care provider is Dr. Jose Guadalupe Raya. Outpatient medications include a few eyedrops, plus Ocuvite. Colonoscopy was performed on March 13, 2022, scope could not be passed [id number] cm due to a tumor in the sigmoid colon. Almost obstructing and circumferential. A CT of the abdomen and pelvis from March 27, 2022 with IV contrast noted normal lung bases, asymmetric thickening of the right lateral wall of the mid sigmoid colon and a nearby 2 cm segment of mild circumferential wall thickening of the mid and distal descending colon, most likely peristalsis. No obvious adenopathy. She had a sigmoid colon resection on April 10, 2022. 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 T4aN2a Stage IIIC. Mismatch repair proteins were all intact. Extranodal extension wasnot seen. Angioinvasion is present. Margins of previous appear free of neoplasm. Grade 2, 3.3 cm lesion. No evidence of perineural invasion. This had invaded through the colon and into the visceral peritoneum. The tumor extended deeply into the serosal adipose tissue to the inked serosal surface. 05/27/22 she had some confusion about schedule of chemotherapy. she will start her FOLFOXtoday. she is doing well overall. she is here with her who has a traumatic brain injury from november years agobut able to take care of himself and walk with a cane. she lives with 16 year old son. 06/03/2022: Here for 8 day toxicity check after initiation of adjuvant FOLFOX chemotherapy for Stage IIIc colon cancer. Had a little bit of cold sensitivity, decreased appetite, fatigue and loose stool. Overall, very mild - tolerable; took Zofran x 1. 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 Labs reviewed on patient's chart from [place] - no significant cytopenias or electrolyte, renal/hepatic issues. 06/24/22 she is doing ok overall. she had a bit harder time with c2. loose stool for a week or two afterwards, mild headaches. she has neuropathy that persists slightly even today. She is due for c3 today. 07/22/2022: She is doing okay - fatigued in general; has a couple days of loose bowels and mild nausea. Cold induced neuropathy x1 week following treatment; then resolves. Still working Denies focal signs/symptoms of infection; no weight loss; appetite stable 08/19/2022: Patient is here for follow up prior to Cycle 7 adjuvant FOLFOX Mild neuropathy; mostly cold induced - usually occurs 3-4 days after pump DC andthen resolves Appetite is stable; no weight loss She is primarily concerned about her liver tests; she is noted to have gradual increase of LFT's ANC - 900; platelet count 92,000. No focal signs/symptoms of infection 09/02/22 She is doing well overall. her neuropathy has improved. 10/21/22 She just got back from visiting her mother and family in [place]. She has no neuropathy at all. last treatment was 09/23/22. 03/24/23 She is feeling well overall. SHe feels strong again. She has finally regained her strength, it took a long time. She had a ct a/p in february in ER for abdomina/back pain. Noted a 11mm R hepaticlesion stable since 2021 likely hemangioma. also 12mm L upper pole renal stone. Also engorged periuterine vessels. She has seen head still operator. she had transvaginal ultrasound. This will be monitored. Her ADDING MACHINE MECHANIC has offered her a dexa scan. Her colonoscopy scheduled with Dr. Jean Baptiste for May 07. 06/25/23 She continues to do well, had her colonoscopy last month and there were no concerns on this she notes an episode of lightheadedness a few days after, thinks she was dehydrated. No recurrence. She notes after this she had about 3 weeks where she had anxiety and felt strongly that something was wrong. She went to her eye doctor, primary care, and even presented to the ER for her concern. She was given an antibiotic by her pcp and had a head CT done that was negative. She notes once her CT scans for our appointment were done, her symptoms completely resolved. Every once in a while she may notice a twinge of pain at her port, usually if she is moving a patient or moving a certain way. It is not bothersome and she would like to keep it in for now. she denies n/v/d/c, abdominal pain, black or tarry stool. Eating and drinking ok no shortness of breath or chest pain, or other new concerns labs stable. CT scans without evidence of recurrence noted. 09/26/23 feels well overall, energy is improving since starting a workout routine no complaints really eating and drinking well no abdominal pain, n/v/d/c, rectal pain, or s/s of bleeding labs stable CT scans without evidence of recurrence 01/19/24 her mom recently so this has been rough. she physically feels well. stooling well. ct ca/p from january with no evidence recurrence. done at [facility]. Intake Vitals/Pain Assessment 01/19/24 11:22 Height 5 ft 4 in Weight 76.204 kg BMI 28.8 Body Fat % 42.35 BP 138/91 Blood Pressure Location Rt brachial Position Sitting Temp 98.0 F Temp Source Temporal Pulse 52 L Pulse Source NIBP Respiration 18 Pulse Oximetry (%) 99 Oxygen Delivery Method room air Are you having pain? No Intake Visit Reasons: 4 Month Follow Up after CT Allergies hydrocodone Allergy (Verified 01/19/24 11:24) Nausea - Last Reconciled 01/19/24 by Ember Rodriguez acetaminophen 1,000 mg PO DAILY PRN brimonidine 0.2% 1 drp Eye-Both BID celecoxib (Celebrex) 200 mg PO DAILY cholecalciferol (vitamin D3) 25 mcg PO DAILY dorzolamide-timolol 22.3-6.8 mg/mL 1 drp Eye-Both BID glucosamine HCl 500 mg PO DAILY latanoprost 0.005% 1 drp Eye-Both QPM omega 7-sku-abe-fish oil 300-1,000 mg (Fish Oil) 1 cap PO DAILY omeprazole magnesium (Prilosec) 20 mg PO DAILY Gastrointestinal Is the patient taking opioids for pain control?: No Bowel Protocol for Opioids Given: No Bowel Pattern: Regular Bowel Movement Aid(s): None Falls Fall Precaution Measures Taken: Patient in chair Nurse's Note: Patient is here for a 4 month follow up with labs and imaging for review. No concerns voiced at time of intake. [facility] History Attestation statement: The following information was validated with the patient. Medical History Medical History delivery delivered Colon cancer Cancer (03/26/22) COVID bleeding Glaucoma of both eyes Surgical History Surgical History Louise teeth extracted S/P hernia repair History of bowel resection S/P colon resection History of wisdom tooth extraction History of hernia repair History of Family History Family History Mother Diabetes Dementia Hypertension Myocardial infarction Glaucoma Father Parkinsonism Hypertension Myocardial infarction Glaucoma Brother Hypertension Legacy FamHx Relation: Brother(s) Father Hypertension Mother Heart disease Hypertension Diabetes Sister Hypertension Social History Social History Smoking status: Never smoker Within the past year, how often did you have a drink containing alcohol: monthly or less Results - [facility] LAB RESULTS Corrected WBC 5.0 10 3/uL (4.0-11.0) 01/15/24 09:14 Hgb 13.7 g/dL (12.0-16.0) 01/15/24 09:14 Hct 42.6 % (36.0-48.0) 01/15/24 09:14 MCV 100.0 fL (81.0-99.0) H 01/15/24 09:14 RDW 13.1 % (11.0-15.0) 01/15/24 09:14 Plt Count 197 10 3/uL (150-450) 01/15/24 09:14 Sodium 136 mmol/L (136-145) 01/15/24 09:14 Potassium 4.2 mmol/L (3.5-5.1) 01/15/24 09:14 BUN 13.0 mg/dL (7.0-18.0) 01/15/24 09:14 Creatinine 0.60 mg/dL (0.55-1.02) 01/15/24 09:14 Glucose 107 mg/dL (74-106) H 01/15/24 09:14 Calcium 9.6 mg/dL (8.5-10.1) 01/15/24 09:14 Total Bilirubin 0.6 mg/dL (0.2-1.0) 01/15/24 09:14 AST 21 U/L (15-37) 01/15/24 09:14 ALT 22 U/L (14-59) 01/15/24 09:14 Alkaline Phosphatase 90 U/L (46-116) 01/15/24 09:14 Total Protein 7.6 g/dL (6.4-8.2) 01/15/24 09:14 Albumin 4.0 g/dL (3.4-5.0) 01/15/24 09:14 Carcinoembryonic Ag 2.8 ng/mL (0.0-4.7) 01/15/24 09:14 Dictated By: Isaías Jordan II, DO DD/ 1119 Signed By: <Electronically signed by Isaías Jordan II, DO> 01/19/24 1205 [facility] Work Phone: Summary Purpose Family History Relationship Condition Age at Onset Recorded Date/T demond Not Specified Diabetes mellitus Unknown Dementia Unknown Hypertension Unknown Myocardial infarction Unknown Glaucoma Unknown father Parkinsonism Unknown Relationship Condition Age at Onset Recorded Date/T demond Not Specified Diabetes mellitus Unknown Dementia Unknown Hypertension Unknown Myocardial infarction Unknown Glaucoma Unknown father Parkinsonism Unknown brother Hypertension Unknown father Unknown Not Specified Heart disease Unknown Diabetes mellitus Unknown sister Hypertension Unknown Relationship Condition Age at Onset Recorded Date/T demond mother Diabetes mellitus Unknown Dementia Unknown Hypertension Unknown Myocardial infarction Unknown Glaucoma Unknown father Parkinsonism Unknown brother Hypertension Unknown father Unknown mother Heart disease Unknown Diabetes mellitus Unknown sister Hypertension Unknown Advance Directives Advance Directive Response Recorded Date/ Time Advance Directives No May 06, 2022 6:27am Advance Directive Response Recorded Date/ Time Advance Directives No May 06, 2022 7:27am Chief Complaint and Reason for Visit Chief Complaint Colon Cancer Reason for Visit Colon cancer Encounter for chemotherapy management Chief Complaint Colon Cancer Malignant neoplasm of colon Reason for Visit Colon cancer Encounter for chemotherapy management Chief Complaint C18.9 Colon Cancer Reason for Visit Colon cancer Encounter for chemotherapy management Chief Complaint C18.9 Colon Cancer Reason for Visit Abnormal LFTs Chemotherapy-induced peripheral neuropathy Colon cancer Encounter for chemotherapy management Chief Complaint 3 month colon cancer , scans/labs Colon Cancer Reason for Visit Abnormal LFTs Chemotherapy-induced peripheral neuropathy Colon cancer Encounter for chemotherapy management Chief Complaint 3 month colon cancer , scans/labs Colon Cancer swollen gland Reason for Visit Colon cancer Abnormal LFTs Chemotherapy-induced peripheral neuropathy Colon cancer Encounter for chemotherapy management Salivary gland hypertrophy Chief Complaint swollen gland Colon Cancer 4 Month Follow Up after CT Reason for Visit Salivary gland hyper trophy Abnormal LFTs Chemotherapy-induced peripheral neuropathy Colon cancer Encounter for chemotherapy management Additional Source Comments INFORMATION SOURCE (unrecogn ized section and content) DATE CREATED AUTHOR 05/02/2021 [facility] DATE CREATED AUTHOR AUTHOR'S ORGANIZ ATION 11/17/2022 [facility] DATE CREATED AUTHOR AUTHOR'S ORGANIZ ATION 01/22/2024 [facility] DATE CREATED AUTHOR AUTHOR'S ORGANIZ ATION 03/27/2024 [facility] Care Teams (unrecognized sec tion and content) Team Status: Active Member Role Status Dates Sandro Chin MD Primary Care Provider Active Team Status: Inactive Member Role Status Dates Sandro Chin MD Primary Care Provide r, Attending Provider Active Start: November 17, 2023 End: November 17, 2023 Team Status: Active Member Role Status Dates Sandro Chin MD Primary Care Provide r, Attending Provider Active Start: November 26, 2023 Team Status: Active Member Role Status Dates Sandro Chin MD Primary Care Provide r, Attending Provider Active Start: January 15, 2024 Team Status: Active Member Role Status Dates Isaías Jordan II, DO Active S tart: January 19, 2024 Clint Jean Baptiste , Referring Provider Active Start: January 19, 2024 Sandro Chin MD Primary Care Provider Active Start: January 19, 2024 Carlyn Turner APRN Attending Provider Acti ve Start: January 19, 2024 Team Status: Inactive Member Role Status Dates Sandro Chin MD Primary Care Provider Active Start: January 19, 2024 End: January 19, 2024 Isaías Jordan II, DO Attending Provider Active Start: January 19, 2024 End: January 19, 2024 Team Status: Active Member Role Status Dates Sandro Chin MD Primary Care Provide r, Attending Provider Active Start: September 18, 2023 Team Status: Inactive Member Role Status Dates Sandro Chin MD Primary Care Provider Active Start: September 26, 2023 End: September 26, 2023 Carlyn Turner APRN Attending Provider Acti ve Start: September 26, 2023 End: September 26, 2023 Team Status: Active Member Role Status Dates Isaías Jordan II, DO Active S tart: September 26, 2023 Clint Jean Baptiste , Referring Provider Active Start: September 26, 2023 Sandro Chin MD Primary Care Provider Active Start: September 26, 2023 Carlyn Turner APRN Attending Provider Acti ve Start: September 26, 2023 Team Status: Inactive Member Role Status Dates Isaías Jordan II, DO Attending Provider Active Team Status: Active Member Role Status Dates Isaías Jordan II, DO Attending Provider Active Clint Jean Baptiste , DO Referring Provider Active Sandro Chin MD Primary Care Provider Active Team Status: Inactive Member Role Status Dates Isaías J Adamowicz II, DO Attending Provider Active NON STAFF Primary Care Provider Active Team Status: Active Member Role Status Dates NON STAFF Primary Care Provider Active In School Suspension Coordinator Relationship Specialty Start Date End Date Sandro Chin MD [address] [place] [address] PCP - General Family Medicine 03/19/23 Goals (unrecognized section and content) Goals may be documented in a n alternate sectionGoals may be documented in an alternate sectionGoals may be documented in an alternate sectionGoals may be documented in an alternate sectionGoals may be documented in an alternate sectionGoals may be documented in an alternate sectionGoals may be documented in an alternate sectionNo InformationGoals may be documented in an alternate sectionNot on filedocumented as of this encounter REASON FOR VISIT (unrecogniz ed section and content) Reason Comments PORT REMOVAL PORT REMOVAL, PATIEN T HOPING TO HAVE PROCEDURE DONE 03/24/24, REFERRED BY DR JORDAN, PATIENT WANTED TO WAIT TO HAVE PROC DONE IN MAR SO WAITED FOR OV UNTIL FEBRUARY FOR RECORDS PERTAINING TO PATIENTS WHO ARE OR HAVE BEEN ENROLLED IN A CHEMICAL DEPENDENCY/SUBSTANCEABUSE PROGRAM, SOME INFORMATION MAY BE OMITTED. This clinical summary was aggregated from multiple sources. Caution should be exercised in using it in the provision of clinical care. This summary normalizes information from multiple sources, and as a consequence, information in this document may materially change the coding, format and clinical context of patient data. In addition, data may be omitted in some cases. CLINICAL DECISIONS SHOULD BE BASED ON THE PRIMARY CLINICAL RECORDS. [employer] provides no warranty or guarantee of the accuracy or completeness of information in this document.
[2024-08-24 13:04] LABS: Basophils Percent Auto 0.8 % (0.2-2.0); Eosinophils Absolute Auto 0.1 10^3/uL (0.0-0.7); Eosinophils Percent Auto 1.6 % (0.9-7.0); Hematocrit 44.2 % (36.0-48.0); Hemoglobin 14.4 g/dL (12.0-16.0); Immature Granulocytes Abs Auto 0.01 10^3/uL (0.00-0.03); Immature Granulocytes Pct Auto 0.2 % (0.0-0.5); Lymphocytes Absolute Auto 2.2 10^3/uL (1.2-3.8); Lymphocytes Percent Auto 43.6 % (20.5-60.0); Mean Corpuscular HGB Conc 32.6 g/dL (29.9-35.2); Mean Corpuscular Hemoglobin 31.9 pg (26.7-34.0); Mean Corpuscular Volume 97.8 fL (81.0-99.0); Mean Platelet Volume 10.8 fL (9.5-13.5); Monocytes Absolute Auto 0.4 10^3/uL (0.3-0.8); Monocytes Percent Auto 7.6 % (1.7-12.0); Neutrophils Absolute Auto 2.3 10^3/uL (1.4-6.5); Neutrophils Percent Auto 46.2 % (43.0-75.0); Platelet Count 207 10^3/uL (150-450); Red Blood Count 4.52 10^6/uL (4.20-5.40); Red Cell Distribution Width 12.9 % (11.0-15.0)
[2024-08-24 13:18] LABS: Alanine Aminotransferase 20 U/L (14-59); Albumin Globulin Ratio 1.1; Albumin Level 3.9 g/dL (3.4-5.0); Alkaline Phosphatase 75 U/L (46-116); Anion Gap 8.5; Aspartate Amino Transferase 20 U/L (15-37); BUN Creatinine Ratio 15.9; Bilirubin Total 0.6 mg/dL (0.2-1.0); Calcium 9.3 mg/dL (8.5-10.1); Carbon Dioxide 27.7 mmol/L (21.0-32.0); Chloride 103 mmol/L (98-107); Estimated GFR (African America >60 (>=60 mL/min/1.73m^2); Estimated GFR (Non-African Ame >60 (>=60 mL/min/1.73m^2); Globulin 3.5 g/dL; Glucose 106 mg/dL (74-106); Potassium 4.2 mmol/L (3.5-5.1); Sodium 135 mmol/L (136-145); Total Protein 7.4 g/dL (6.4-8.2)
[2024-08-25 04:07] LABS: CEA 2.9 ng/mL (0.0-4.7)
== END 2024-08-24 11:50 | disposition home or self-care (01) ==
PROVIDERS: PCP Family Medicine; Visit Provider Internal Medicine
DX: C18.9 Malignant neoplasm of colon, unspecified (principal); Z01.89 Encounter for other specified special examinations
CPT/HCPCS: 36415; 71260; 74177; 80053; 82378; 85025; Q9967

== ENCOUNTER 2024-12-24 11:36 | Outpatient (OUT) | payer BC, SELFPAY ==
--- OUTSIDE RECORDS SUMMARY | 2024-12-21 08:40 | XMS_ITS | Encounter Summary ---
Author Organization [facility] Address [address] [place] [address] Care Team Providers Care Chainman Name Role Phone Melissa Worthy MD Primary Care Provider [phone] Reason for Visit * Reason Comments Allergic Rhinitis * Consultation (Routine) - Closed Specialty Diagnoses / Procedures Referred By Contac t Referred To Contact Otolaryngology Diagnoses Other seasonal allergic rhinitis Procedures [place] UNLISTED EVALUATION AND MANAGEMENT SERVICE [facility] [address] [address] Phone: tel: fax: Rosemary Bauman MD 112 [facility] [address] [place] [address] Phone: tel: fax: Referral ID Status Reason Start Date Expiration Date Visits Re quested Visits Authorized [id number] Closed 12/14/2024 06/12/2025 1 1 Encounter Details Date Type Department Care Team (Late st Contact Info) Description 12/21/2024 8:40 AM EDT Office Visit [facility] 112 [facility] [address] [place] [address] Rosemary Bauman MD 112 [facility] [address] [place], [place] [id number] Globus sensation (Primary Dx); LPRD (laryngopharyngeal reflux [...] gland hypertrophy 12/20/2024 Situational anxiety 12/20/2024 bleeding ([facility]) 05/15/2022 Resolved Ambulatory Problems Diagnosis Date [...] EDT Office Visit [facility] [address] [facility] [address] [place] [address] Rosemary Bauman MD 112 [facility] [address] [place] [address] documented as of this encounter Visit Diagnoses Diagnosis Globus sensation- Primary Gastrointestinal malfunction arising from mental factors LPRD (laryngopharyngeal reflux disease) Acute laryngitis, without mention of obstruction documented in this encounter Care Teams Chainman Relationship Specialty Start Date End Date Melissa Worthy MD [address] [place] [phone] PCP - General Family Medicine 12/14/24 documented as of this encounter
--- NOTE | 2024-12-24 | MM_ITS ---
Patient Name: SHU GARDNER MR#: [id number] : 1965 Exam Date: 12/24/2024 Ordering Doctor: DR SANDRO CHIN M.D. RADIOLOGY REPORT PROCEDURE: MM TOMOSYNTHESIS SCREENING BI COMPARISON: MG MAMM SCREEN 3D OSMANY CAD, 03/08/2021. MG MAMM SCREEN OSMANY W CAD, 06/09/2019. INDICATIONS: Screening mammogram;Z12.31 Calculator Name NCI Breast Cancer Risk Assessment Tool 5 Year Breast Cancer Risk 1.80% Lifetime Breast Cancer Risk 10.50% Personal Breast Cancer No Personal Ovarian Cancer No Treatments colon resection, chemo Family Cancers Sister with pancreas cancer at age 62. LOCATION: [facility] BREAST COMPOSITION: There are scattered areas of fibroglandular density. FINDINGS: DIAGNOSTIC CATEGORY 1--NEGATIVE. RIGHT BREAST: No significant suspicious finding. LEFT BREAST: No significant suspicious finding. RECOMMENDATIONS: ROUTINE MAMMOGRAM AND CLINICAL EVALUATION IN 12 MONTHS. PLEASE NOTE: A NORMAL MAMMOGRAM DOES NOT EXCLUDE THE POSSIBILITY OF BREAST CANCER. A CLINICALLY SUSPICIOUS PALPABLE LUMP SHOULD BE BIOPSIED. Dictated by: Andres Wallis DO on 12/24/2024 at 16:02 Approved by: Andres Wallis DO on 12/24/2024 at 16:03
--- OUTSIDE RECORDS SUMMARY | 2024-12-24 11:37 | XMS_ITS | Clinical Summary ---
Author Organization [facility] Address [id number] [place] [address] Care Team Providers Care Historic Sites Supervisor Name Role Phone Melissa Worthy MD Primary Care Provider [phone] Allergies Active Allergy Reactions Criticality Noted Date Comments Codeine GI Disturbance 02/19/2023 Hydrocodone Nausea And Vomiting High 02/18/2022 Patient reports it was many years ago Medications latanoprost (XALATAN) 0.005 % ophthalmic solution Administer 0.005 drops to both eyes nightly. 2 Active dorzolamide-olga oloL (COSOPT) 22.3-6.8 mg/mL ophthalmic solution Administer 6.8 drops to both eyes in the morning and at bedtime. 2 Active brimonidine (ALPHAGAN) 0.2 % ophthalmic solution Administer 0.2 drops to both eyes in the morning and at bedtime. 2 Active mv-mn/om3/dha/e pa/fish/lut/katheryn (OCUVITE ADULT 50 PLUS ORAL) Take by mouth daily. Active cholecalciferol , vitamin D3, (VITAMIN D3 ORAL) Take 1,000 mg by mouth. Active celecoxib (CeleBREX) 200 mg capsule TAKE 1 CAPSULE BY MOUTH ONCE DAILY NEEDED 3 Active omeprazole (PriLOSEC) 20 mg capsule PATIENT REPORTS NEEDED 3 Active omega 0-bxi-zai-fish oil (Fish OiL) 300-1,000 mg capsule Take by mouth. Activ e glucosamine-cho ndroitin 500-400 mg tablet Take 1 tablet by mouth 3 (three) times a day. Active Active Problems Problem Noted Date Diagnosed Date Female pelvic congestion syndrome 02/20/2023 Glaucoma of both eyes 05/15/2022 bleeding 05/15/2022 Family History Medical History Relation Name Comments Hypertension Father Parkinsonism Father Breast cancer Maternal Aunt Dementia Mother Diabetes Mother Hypertension Mother Relation Name Status Comments Father Maternal Aunt Mother Alive Social History Tobacco Use Types Packs/Day Years Used Date Smoking Tobacco: Former Cigarettes Smokeless Tobacco: Never Tobacco Cessation:Counseling Given: Not Answered Comments:smoked when patient was 18 for 6 months Alcohol Use Standard Drinks/Week Comments Yes 0 (1 standard drink = 0.6 oz pur e alcohol) occasionally Hunger Screening Answer Date Recorded Within the past 12 months we worried whether our food would run out before we got money to buy more. Never True 03/25/2024 Food Insecurity - Inability Not on file 03/07 Comments Unknown Sex and Gender Information Value Date Recorded Sex Assigned at Not on file Legal Sex Female 3:24 PM EDT Gender Identity Not on file Sexual Orientation Not on file Last Filed Vital Signs Vital Sign Reading Time Taken Comments Blood Pressure 102/60 03/25/2024 11:29 AM EDT Pulse 54 03/25/2024 11:29 AM EDT Temperature 36.2 C (97.1 F) 06/07/2022 10:01 AM EST Respiratory Rate - - Oxygen Saturation - - Inhaled Oxygen Concentration - - Weight 72.7 kg (160 lb 3.2 oz) 03/25/2024 11:29 AM EDT Height 162.6 cm (5' 4 ) 03/25/2024 11:29 AM EDT Body Mass Index 27.5 03/25/2024 11:29 AM EDT Plan of Treatment Health Maintenance Due Date Last Done Comments Depression Screening 1978 Adult BMI Follow Up Plan 1984 DTaP,Tdap and Td Vaccines (1 - Tdap) 1985 Pap Smear 1987 Zoster (Shingles) Vaccine (1 of 2) 2016 COVID-19 Vaccine (5 - 2023-2 5 season) 2024 05/16/2022, 04/27/2021, 08/02/2020, Additional history exists Influenza Vaccine 03/07/2025 Adult BMI Screening 03/25/2025 03/25/2024 Tobacco Screening 03/25/2025 03/25/2024 Colonoscopy 05/07/2026 05/07/2023, 03/13/2022 Medical Devices Not on file Procedures Procedure Name Priority Date/Time Associated Diagnosis Comments COLONOSCOPY Routine 05/07/2023 Primary malignant neoplasm of sigmoid colon (CMS-HCC) from Last 3 Months or Most Recently Relevant to Health Maintenance Results * Colonoscopy (05/07/2023) us Asher Jade DO GI PROCEDURE ORDERABLES Fin al Result MANUALLY TRANSCRIBED RESULTS from Last 3 Months or Most Recently Relevant to Health Maintenance Insurance [employer] Care Teams Historic Sites Supervisor Relationship Specialty Start Date End Date Melissa Worthy MD [address] [place] [id number] PCP - General Family Medicine 03/19/23
--- OUTSIDE RECORDS SUMMARY | 2024-12-24 11:38 | XMS_ITS | Encounter Summary ---
Author Organization [facility] Address [address] [place] [address] Care Team Providers Care Bathhouse Attendant Name Role Phone Melissa Worthy MD Primary Care Provider [phone] Encounter Details Date Type Department Care Team ([facility] Contact Info) Description 12/21/2024 Bamboo flowsheet [facility] [address] [facility] [address] [place] [address] Rosemary Bauman MD 112 [facility] [address] [place] [address] Social History Tobacco Use Types Packs/Day Years Used Date Smoking Tobacco: Never Smokeless Tobacco: Never Alcohol Use Standard Drinks/Week Comments Yes 0 (1 standard drink = 0.6 oz pur e alcohol) occ Comments Unknown Sex and Gender Information Value Date Recorded Sex Assigned at Not on file Legal Sex Female 7:32 PM EDT Gender Identity Not on file Sexual Orientation Not on file documented as of this encounter Plan of Treatment Upcoming Encounters Date Type Department Care Team ([facility] Contact Info) Description 01/18/2025 1:30 PM EDT Office Visit [facility] [address] [facility] [address] [place] [address] Rosemary Bauman MD 112 [facility] [address] [place] [address] documented as of this encounter Visit Diagnoses Not on filedocumented in this encounter Care Teams Bathhouse Attendant Relationship Specialty Start Date End Date Melissa Worthy MD [address] [place] [address] PCP - General Family Medicine 12/14/24 documented as of this encounter
--- OUTSIDE RECORDS SUMMARY | 2024-12-24 11:38 | XMS_ITS | Encounter Summary ---
Author Organization [employer] Address [id number] [address] [place] [address] Care Team Providers Care Technical Artist Name Role Phone Melissa Worthy MD Primary Care Provider [phone] Encounter Details Date Type Department Care Team (Late st Contact Info) Description 04/23/2023 Telephone [facility] [address] [place] [phone] Yoselin Lo RMA Social History Tobacco Use Types Packs/Day Years Used Date Smoking Tobacco: Former Cigarettes Smokeless Tobacco: Never Comments:smoked when patient was 18 for 6 months Alcohol Use Standard Drinks/Week Comments Not Currently 0 (1 standard drink = 0.6 oz pur e alcohol) Comments Unknown Sex and Gender Information Value Date Recorded Sex Assigned at Not on file Legal Sex Female 3:24 PM EDT Gender Identity Not on file Sexual Orientation Not on file documented as of this encounter Miscellaneous Notes * Telephone Encounter - DANIELLE Bennett - 04/23/2023 6:19 PM EDT I called [facility]sol and left a message to call the office to schedule and appt. to update her H&P prior to her [facility] surgery with Dr. Jade 05/07/23. * Telephone Encounter - DANIELLE Bennett - 04/23/2023 6:19 PM EDT I called [facility] and left a message to call the office to schedule an appointment with Fredy Howard NP to update her chart for an upcoming surgery with Dr. Jade on 05/07/23. documented in this encounter Plan of Treatment Not on file documented as of this encounter Visit Diagnoses Not on filedocumented in this encounter Care Teams Technical Artist Relationship Specialty Start Date End Date Melissa Worthy MD [address] [place] [address] PCP - General Family Medicine 03/19/23 documented as of this encounter
--- OUTSIDE RECORDS SUMMARY | 2024-12-24 11:38 | XMS_ITS | Clinical Summary ---
Author Organization [facility] Address [address] [place] [address] Care Team Providers Care Dental Manager Name Role Phone Melissa Worthy MD Primary Care Provider Allergies Active Allergy Reactions Criticality Noted Date Comments Codeine GI intolerance 02/19/2023 Hydrocodone High 02/18/2022 Other Reaction(s): Nausea, Nausea And Vomiting Patient reports it was many years ago Medications ondansetron (Zofran) 8 MG tablet Take 8 mg by mouth every 8 (eight) hours if needed for nausea Active latanoprost (Xalatan) 0.005 % ophthalmic solution INSTILL 1 DROP INTO EACH EYE IN THE EVENING DIRECTED 4 Active dorzolamide-olga olol (Cosopt) 2-0.5 % ophthalmic solution INSTILL 1 DROP INTO EACH EYE TWICE DAILY DIRECTED 5 Active brimonidine (AlphaGAN P) 0.2 % ophthalmic solution INSTILL 1 DROP INTO EACH EYE TWICE DAILY DIRECTED 5 Active loratadine (Claritin) 10 MG tablet Daily 5 Active pantoprazole (ProtoNix) 40 MG EC tablet Daily 5 Active omega-3 1000 MG capsule capsule Take by mouth 4 Active famotidine (Pepcid) 20 MG tabletIndicatio ns:LPRD (laryngopharyng eal reflux disease) Take 1 tablet (20 mg) by mouth at bedtime 90 tablet 5 03/21/20 25 Active omeprazole (PriLOSEC) [address] capsule Take 20 mg by mouth Daily as needed 3 12/22/19 25 Discontinu ed(Therapy completed) Active Problems Problem Noted Date Diagnosed Date Abnormal LFTs 12/20/2024 Chemotherapy-induced peripheral neuropathy 12/20 Colon cancer 12/20/2024 Encounter for chemotherapy management 12/20/2024 Osteoarthritis 12/20/2024 Pharyngitis, chronic 12/20/2024 Salivary gland hypertrophy 12/20/2024 Situational anxiety 12/20/2024 Female pelvic congestion syndrome 02/20/2023 Glaucoma of both eyes 05/15/2022 bleeding ([facility]) 05/15/2022 Encounters Date Type Department Care Team Description 12/21/2024 8:40 AM EDT Office Visit [facility] [address] [place] [address] [place] [address] Rosemary Bauman MD Globus sensation (Primary Dx); LPRD (laryngopharyngeal reflux disease) 12/21/2024 Bamboo flowsheet [facility] [address] [place] [address] [place] [address] Rosemary Bauman MD 12/21/2024 Travel from Last 3 Months Social History Tobacco Use Types Packs/Day Years [...] (159 lb) 12/21/2024 8:32 AM EDT Height 162.6 cm (5' 4 ) 02/19/2023 11:44 AM EDT Body Mass Index 27.29 02/19/2023 11:44 AM EDT Plan of Treatment Upcoming Encounters Date Type Department Care Team (Late st Contact Info) Description 01/18/2025 1:30 PM EDT Office Visit [facility] 112 [facility] [address] [place] [address] Rosemary Bauman MD 112 [facility] [address] [place] [address] Health Maintenance Due Date Last Done Comments CT Colonography 1966 FIT-DNA 1966 FIT 1966 FOBT 1966 Sigmoidoscopy 1966 Pap Smear 1987 Cervical Cancer Screening 1996 HPV/Cotest 1996 Mammogram 2006 Colonoscopy 05/07/2033 05/07/2023 Colorectal Cancer Screening 05/07/2033 Influenza Vaccine Completed 05/18/2024 Insurance [employer] Care Teams Dental Manager Relationship Specialty Start Date End Date Melissa Worthy MD [address] [place] [address] PCP - General Family Medicine 12/14/24
--- OUTSIDE RECORDS SUMMARY | 2024-12-24 11:38 | XMS_ITS | Encounter Summary ---
Author Organization [facility] Address [address] [place] [address] Care Team Providers Care Chemical Laboratory Assistant Name Role Phone Melissa Worthy MD Primary Care Provider [phone] Encounter Details Date Type Department Care Team (Latest Contact Info) Description 12/21/2024 Travel Social History Tobacco Use Types Packs/Day Years [...] EDT Office Visit [facility] [address] [facility] [address] [place] [phone] Rosemary Bauman MD 112 [facility] [address] [place] [address] documented as of this encounter Visit Diagnoses Not on filedocumented in this encounter Care Teams Chemical Laboratory Assistant Relationship Specialty Start Date End Date Melissa Worthy MD [address] [place] [phone] PCP - General Family Medicine 12/14/24 documented as of this encounter
== END 2024-12-24 11:37 | disposition home or self-care (01) ==
LOC: MAMMO 11:36
PROVIDERS: PCP Family Medicine; Visit Provider Family Medicine
DX: Z12.31 Encounter for screening mammogram for malignant neoplasm of breast (principal); Z80.8 Family history of malignant neoplasm of other organs or systems
CPT/HCPCS: 77063; 77067

== ENCOUNTER 2024-12-25 10:03 | Outpatient (OUT) | payer BC, SELFPAY ==
--- OUTSIDE RECORDS SUMMARY | 2024-12-21 08:40 | XMS_ITS | Encounter Summary ---
Author Organization [facility] Address [address] [place] [address] Care Team Providers Care Data Visualization Developer Name Role Phone Melissa Worthy MD Primary Care Provider [phone] Reason for Visit * Reason Comments Allergic Rhinitis * Consultation (Routine) - Closed Specialty Diagnoses / Procedures Referred By Contac t Referred To Contact Otolaryngology Diagnoses Other seasonal allergic rhinitis Procedures [place] UNLISTED EVALUATION AND MANAGEMENT SERVICE [facility] [address] [address] Phone: tel: fax: Rosemary Bauman MD [address] [facility] [address] [place] [address] Phone: tel: fax: Referral ID Status Reason Start Date Expiration Date Visits Re quested Visits Authorized [id number] Closed 12/14/2024 06/12/2025 1 1 Encounter Details Date Type Department Care Team (Late st Contact Info) Description 12/21/2024 8:40 AM EDT Office Visit [facility] [address] [facility] [address] [place] [address] Rosemary Bauman MD 112 [facility] [address] [place], [place] [id number] Globus sensation (Primary Dx); LPRD (laryngopharyngeal reflux disease) Social History Tobacco Use Types Packs/Day Years Used Date Smoking Tobacco: Never Smokeless Tobacco: Never Tobacco Cessation:Counseling Given: Not Answered Alcohol Use Standard Drinks/Week Comments Yes 0 (1 standard drink = 0.6 oz pur e alcohol) occ Comments Unknown Sex and Gender Information Value Date Recorded Sex Assigned at Not on file Legal Sex Female 7:32 PM EDT Gender Identity Not on file Sexual Orientation Not on file documented as of this encounter Last Filed Vital Signs Vital Sign Reading Time Taken Comments Blood Pressure 148/101 12/21/2024 8:32 AM EDT Pulse 68 12/21/2024 8:32 AM EDT Temperature - - Respiratory Rate - - Oxygen Saturation - - Inhaled Oxygen Concentration - - Weight 72.1 kg (159 lb) 12/21/2024 8:32 AM EDT Height - - Body Mass Index 27.29 02/19/2023 11:44 AM EDT documented in this encounter Progress Notes * Rosemary Bauman MD - 12/21/2024 8:40 AM EDT Subjective Patient ID: Shasta Jacobson is a 59 y.o. female who presents for Allergic Rhinitis Pt reports a FB sensation in the throat four 4-5 weeks. Started with getting lettuce in throat. H/OGERD. Takes PPI. Takes 1 hour before breakfast. Review of Systems All other systems reviewed and are negative. No family history on file. Active Ambulatory Problems Diagnosis Date Noted Abnormal LFTs 12/20/2024 Chemotherapy-induced peripheral neuropathy (HCC) 12/20/2024 Colon cancer (HCC) 12/20/2024 Encounter for chemotherapy management 12/20/2024 Female pelvic congestion syndrome 02/20/2023 Glaucoma of both eyes 05/15/2022 Osteoarthritis 12/20/2024 Pharyngitis, chronic 12/20/2024 Salivary gland hypertrophy 12/20/2024 Situational anxiety 12/20/2024 bleeding ([facility]) 05/15/2022 Resolved Ambulatory Problems Diagnosis Date Noted No Resolved Ambulatory Problems Past Medical History: Diagnosis Date Glaucoma History of in vitro fertilization Inguinal hernia Past Surgical History: Procedure Laterality Date SECTION, LOW TRANSVERSE COLON SURGERY resecton due to cancer DILATION AND CURETTAGE OF UTERUS Allergies Allergen Reactions Hydrocodone Other Reaction(s): Nausea, Nausea And Vomiting Patient reports it was many years ago Codeine GI intolerance Current Outpatient Medications on File Prior to Visit Medication Sig Dispense Refill brimonidine (AlphaGAN P) 0.2 % ophthalmic solution INSTILL 1 DROP INTO EACH EYE TWICE DAILY DIRECTED dorzolamide-timolol (Cosopt) 2-0.5 % ophthalmic solution INSTILL 1 DROP INTO EACH EYE TWICE DAILY DIRECTED latanoprost (Xalatan) 0.005 % ophthalmic solution INSTILL 1 DROP INTO EACH EYE IN THE EVENING DIRECTED loratadine (Claritin) 10 MG tablet Daily omega-3 1000 MG capsule capsule Take by mouth ondansetron (Zofran) 8 MG tablet Take 8 mg by mouth every 8 (eight) hours if needed for nausea pantoprazole (ProtoNix) 40 MG EC tablet Daily [DISCONTINUED] omeprazole (PriLOSEC) [address] capsule Take 20 mg by mouth Daily as needed No current facility-administered medications on file prior to visit. Objective Last Recorded Vitals Vitals: 12/21/24 0832 BP: (!) 148/101 Pulse: 68 ENT Physical Exam Constitutional Appearance: patient appears well-developed, well-nourished and well-groomed, Head and Face Appearance: head appears normal and face appears atraumatic; Ear Ear Canals: right ear canal normal; left ear canal normal; Tympanic Membranes: right tympanic membrane normal; left tympanic membrane normal; Nose External Nose: nares patent bilaterally; external nose normal; Internal Nose: septum normal; Oral Cavity/Oropharynx Tongue: normal; Oral mucosa: normal; Hard palate: normal; Soft palate: normal; Tonsils: normal; Base of Tongue: normal; OC/OP comments: IDL - no mass or ulcer Neck Neck: neck normal; neck palpation normal; Thyroid: thyroid normal; Respiratory Inspection: breathing unlabored; normal breathing rate; Auscultation: breath sounds are clear; Cardiovascular Inspection: extremities are warm and well perfused; no peripheral edema present; Auscultation: regular rate and rhythm; Assessment/Plan Diagnoses and all orders for this visit: Globus sensation LPRD (laryngopharyngeal reflux disease) No sign of FB or neoplasm (pt's concern). I will modify reflux regimen a bit and recheck in 4 weeksif no improvement. documented in this encounter Plan of Treatment Upcoming Encounters Date Type Department Care Team (Late st Contact Info) Description 01/18/2025 1:30 PM EDT Office Visit [facility] [address] [facility] [address] [place] [address] Rosemary Bauman MD 112 [facility] [address] [place] [address] documented as of this encounter Visit Diagnoses Diagnosis Globus sensation- Primary Gastrointestinal malfunction arising from mental factors LPRD (laryngopharyngeal reflux disease) Acute laryngitis, without mention of obstruction documented in this encounter Care Teams Data Visualization Developer Relationship Specialty Start Date End Date Melissa Worthy MD [address] [place] [phone] PCP - General Family Medicine 12/14/24 documented as of this encounter
--- OUTSIDE RECORDS SUMMARY | 2024-12-25 10:05 | XMS_ITS | CCD ---
Author Organization [facility] Care Team Providers Care Business Development Executive Name Role Phone DO Isaías Jordan II Attending Provider [phone] DO Clint Jean Baptiste Referring Provider MD Sandro Chin Primary Care Provider DO Isaías Jordan II Attending Provider [phone] NON STAFF Primary Care Provider DO Clint [...] SANDRO Thapa Primary Care Unavailable ADAMOWICZ, ISAÍAS J Admitting Unavailable ADAMOWICZ, ISAÍAS J Attending Unavailable HAROONOWICZ, ISAÍAS J Consulting Unavailable HAROONOWICZ, ISAÍAS J Admitting Unavailable ADAMOWICZ, ISAÍAS J Attending Unavailable GIUSEPPE, DR SANDRO Ernst Primary Care Unavailable RADHA, ISAÍAS Seals Consulting Unavailable ITA ., DR CLINT Ernst Admitting Unavaila ble ITA ., DR CLINT Ernst Attending Unavaila brent CHIN, DR SANDRO Ernst Primary Care Unavailable ITA ., DR CLINT Ernst Consulting Unavaila ble ITA ., DR CLINT Ernst Admitting Unavaila [...] CHIN, DR SANDRO Ernst Primary Care Unavailable ZIEBER, DR NEDA Gallo Consulting Unavailable CHIN, DR [...] CHIN, DR SANDRO Ernst Primary Care Unavailable IRVING GUPTA Admitting Unavailable ALONSO, IRVING Babin Attending Unavailable ALONSO, IRVING Baibn Consulting Unavailable CHIN, DR SANDRO Ernst Primary Care Unavailable GRILLIS ., DR CLINT Ernst Consulting Unavaila ble HOY ., DR SHAHID Admitting Unavailable HOY ., DR SHAHID Attending Unavailable GRILLIS ., DR CLINT Ernst Procedure Practitioner U navailable HOMary ., DR SHAHID Consulting Unavailable NADERERMINGO Consulting Unavailable MUKHERJEE, JOSHUA Consulting Unavailable MORGOS, SUZIE Consulting Unavailable SHARP, BERTHA Consulting Unavailable RAZIA, AUGUSTIN Consulting Unavailable GRILLIS ., DR CLINT Ernst Admitting Unavaila ble GRILLIIgnacio ., DR CLINT Ernst Attending Unavaila brent CHIN, DR SANDRO Ernst Primary Care Unavailable GRILLIS ., DR CLINT Ernst Consulting Unavaila ISAÍAS Kang Admitting Unavailable ISAÍAS JORDAN Attending Unavailable GIUSEPPE, DR SANDRO Ernst Primary Care Unavailable ISAÍAS JORDAN Consulting Unavailable Sandro Chin Unavailable DO Clint Jean Baptiste Referring Provider [phone] MD Sandro Chin Primary Care Provider OLIVIA Turner Attending Provider DO Clint Jean Baptiste Referring Provider [phone] MD Sandro Chin Primary Care Provider OLIVIA Turner Attending Provider CLINT JEAN BAPTISTE Attending Unavailable SANDRO CHIN Referring Unavailable SANDRO CHIN Primary Care Unavailable CLINT JEAN BAPTISTE Attending Unavailable SANDRO CHIN Referring Unavailable SANDRO CHIN Primary Care Unavailable MASHA RICHARDSON Attending Unavailable SANDRO CHIN Referring Unavailable SANDRO CHIN Primary Care Unavailable Sandro Chin MD Primary Care Provider Clint Jean Baptiste DO Referring Provider Sandro Chin MD Primary Care Provider Carlyn Turner APRN Attending Provider Sandro Chin MD Primary Care Provider Sandro Chin Attending Unavailable Sandro Chin Admitting Unavailable Sandro Chin Primary Care Unavailable Carlyn Turner Admitting Unavail able Carlyn Turner Attending Unavail able Clint Jean Baptiste Referring Unavailable Sandro Chin Primary Care Unavailable CONSTANTINO MARTINEZ Attending Unavailable Allergies Allergy Classification Reported Allergen(s) Allergy Type Date of Onset Reaction(s) Facility (16 sources) HYDROcodone; Translations: [Hydrocodone] Drug Allergy 2 Nausea And Vomiting [facility] (1 source) Misc-Food; Translations: [Misc-Food] Food allergy (disorder) [facility] (7 sources) Codeine; Translations: [CODEINE] Drug Allergy 3 GI Disturbance, GI intolerance [facility] Medications Current Medications Medication Drug Class(es) Dates Sig (Normalized) Sig (Original) acetaminophen 500 mg oral tablet (14 sources) Start: 05-03-2022 take 2 tablets by mouth once daily as needed for pain Acetaminophen 500 mg Tablet Active 1000 MG PO Daily as needed for Pain May 03, 2022 12:00am Start: 05-03-2022 take 1000 mg by mout h once daily Acetaminophen Active 1000 MG PO Daily May 03, 2022 12:00am brimonidine tartrate 2 mg/ml ophthalmic solution (20 sources) alpha-Adrenergic Agonist Start: 11-06-2024 take 1 drop(s) into the eye(s) twice daily brimonidine (AlphaGAN P) 0.2 % ophthalmic solution INSTILL 1 DROP INTO EACH EYE TWICE DAILY DIRECTED 11/06/2024 Active Start: 05-02-2022 take 1 drop(s) into the eye(s) twice daily Brimonidine 0.2 % Drops Active 1 DROPS EYE-BOTH Twice daily May 02, 2022 12:00am Start: 05-02-2022 take 1 drop(s) into the [...] drop twice a day each eye Active cholecalciferol 0.025 mg oral capsule (14 sources) Vitamin D Start: 05-27-2022 take 1 capsule by mouth once daily Cholecalciferol (Vitamin D3) 25 mcg (1,000 unit) Capsule Active 25 MCG PO Daily May 27, 2022 1:00am cholecalciferol, vitamin D3, (VITAMIN D3 ORAL) (3 sources) cholecalciferol, vitamin D3, (VITAMIN D3 ORAL) Take 1,000 mg by mouth. Active chondroitin sulfates 400 mg / glucosamine hydrochloride 500 mg oral tablet (3 sources) take 1 tablet by mouth three times daily glucosamine-chondroi tin 500-400 mg tablet Take 1 tablet by [...] to procedure 1 tablet 03/03/2024 03/03/2024 Active docosahexaenoic acid 120 mg / eicosapentaenoic acid 180 mg oral capsule (2 sources) Start: 01-19-2024 omega-3 1000 MG capsule capsule Take by mouth 01/19/2024 Active Twining 5-Eul-Cfi-Fish Oil (4 sources) Start: 01-19-2024 take 300-1000 mg by mouth once daily Twining 8-Qdi-Dfa-Fish Oil (Fish Oil) 300-1,000 mg capsule Active 1 CAP PO Daily January 18, 2024 11:00pm Start: 01-19-2024 take 300-1000 mg by mouth once daily Twining 8-Jrt-Xvv-Fish Oil (Fish Oil) 300-1,000 mg capsule Active 1 CAP PO Daily January 19, 2024 12:00am dorzolamide 20 mg/ml / timolol 5 mg/ml ophthalmic solution (20 sources) Carbonic Anhydrase Inhibitor, beta-Adrenergic Mitchell Start: 11-12-2024 dorzolamide-timolol (Cosopt) 2-0.5 % ophthalmic solution INSTILL 1 DROP INTO EACH EYE TWICE DAILY DIRECTED 11/12/2024 Active Start: 05-02-2022 take 1 drop(s) into the eye(s) twice daily Dorzolamide-Timolol 22.3-6.8 mg/mL drops Active 1 DROPS EYE-BOTH Twice daily May 02, 2022 12:00am Start: 02-06-2022 dorzolamide-ti moloL (COSOPT) 22.3-6.8 mg/mL ophthalmic solution Administer 6.8 drops to both eyes in the morning and at bedtime. 02/06/2022 Active take 1 drop(s) into the eye(s) twice daily Cosopt 2-0.5 % 1 drop twice a day each eye Active famotidine 20 mg oral tablet (2 sources) Histamine-2 Receptor Antagonist Start: 12-21-2024 End: 03-21-2025 take 1 tablet by mouth at bedtime famotidine (Pepcid) 20 MG tablet Indications: LPRD (laryngopharyngeal reflux disease) Take 1 tablet (20 mg) by mouth at bedtime 90 tablet 12/21/2024 03/21/2025 Active latanoprost 0.05 mg/ml ophthalmic solution (20 sources) Prostaglandin Analog Start: 04-24-2024 take 1 drop(s) into the eye(s) in the evening latanoprost (Xalatan) 0.005 % ophthalmic solution INSTILL 1 DROP INTO EACH EYE IN THE EVENING DIRECTED 04/24/2024 Active Start: 05-02-2022 take 1 drop(s) into the eye(s) once daily in the evening Latanoprost 0.005 % Drops Active 1 DROPS EYE-BOTH Every evening May 02, 2022 12:00am Start: 05-02-2022 take 1 drop(s) into the [...] drop once a day each eye Active loratadine 10 mg oral tablet (4 sources) Start: 12-14-2024 loratadine (Claritin) 10 MG tablet Daily 12/14/2024 Active mv-mn/om3/dha/epa/ fish/lut/katheryn (OCUVITE ADULT 50 PLUS ORAL) (3 sources) mv-mn/om3/dha/ep a/f rodriguez/lut/katheryn (OCUVITE ADULT 50 PLUS ORAL) Take by mouth daily. Active omega 2-sfm-tlv-fish oil (Fish OiL) 300-1,000 mg capsule (3 sources) omega 0-pqm-vtq-fish oil (Fish OiL) 300-1,000 mg capsule Take by mouth. Active omeprazole 20 mg delayed release oral capsule (15 sources) Proton Pump Inhibitor Start: 01-16-2023 End: 12-21-2024 take 1 capsule by mouth every twenty-four hours as needed omeprazole (PriLOSEC) [address] capsule Take 20 mg by mouth Daily as needed 01/16/2023 12/21/2024 Discontinued (Therapy completed) Start: 08-05-2022 End: 12-14-2024 take 20 mg by mouth once daily Omeprazole Magnesium (P rilosec) 10 mg Susp,Delayed Release For Recon Discontinued 20 MG PO Daily 60 August 05, 2022 1:00am December 14, 2024 9:54am pantoprazole 40 mg delayed release oral tablet (4 sources) Proton Pump Inhibitor Start: 12-14-2024 pantoprazole (ProtoNix) 40 MG EC tablet Daily 12/14/2024 Active sulfamethoxazole 800 mg / trimethoprim 160 mg oral tablet (1 source) Dihydrofolate Reductase Inhibitor Antibacterial, Sulfonamide Antimicrobial Start: 05-19-2023 take 1 tablet by mouth every twelve hours Bactrim DS 800-160 MG 1 tablet Orally Twice a day for 10 day(s) May, Active Vitamin D3 (1 source) Vitamin D3 Activ e Completed/Discontinued Medications Medication Drug Class(es) Dates Sig (Normalized) Sig (Original) ascorbic acid 1000 mg extended release oral tablet (14 sources) Vitamin C Start: 05-27-2022 End: 11-17-2023 take 1 capsule by mouth once daily Ascorbic Acid (Vitamin C) 1,000 mg Capsule, Extended Release Discontinued 1 CAP PO Daily May 27, 2022 1:00am November 17, 2023 9:47am Start: 05-27-2022 End: 11-17-2023 take 1 capsule by mouth once daily Ascorbic Acid (Vitamin C) Discontinued 1 CAP PO Daily May 27, 2022 1:00am November 17, 2023 9:47am Start: 05-27-2022 take 1 capsule by mo [facility] once daily Ascorbic Acid (Vitamin C) Active 1 CAP PO Daily May 27, 2022 1:00am Start: 05-27-2022 take 1 capsule by mo uth once daily Ascorbic Acid (Vitamin C) Active 1 CAP PO Daily May 27, 2022 12:00am Carica Papaya (Papaya Enzyme) Tablet (9 sources) Start: 08-19-2022 End: 06-25-2023 take 1 [...] 11:38am Start: 08-19-2022 [facility] Carica Papaya (Papaya Enzyme) Tablet Active 1 TAB PO Daily August 19, 2022 12:00am celecoxib 200 mg oral capsule (14 sources) Nonsteroidal Anti-inflammatory Drug Start: 02-19-2023 End: 07-01-2024 take 1 capsule by mouth once daily Celecoxib (Celebrex) 200 mg Capsule Discontinued 200 MG PO Daily 60 March 24, 2023 12:00am July 01, 2024 12:29pm glucosamine 500 mg oral tablet (4 sources) Start: 01-19-2024 End: 07-01-2024 take 1 tablet by mouth once daily Glucosamine Hcl 500 mg tablet Discontinued 500 MG PO Daily January 19, 2024 12:00am July 01, 2024 12:06pm administer with a meal Biidn-Sw-5-Dha-Ep c-Apfgylh-Lpl (11 sources) Start: 05-02-2022 End: 05-03-2022 take 3 capsules by mouth once daily Pnxfe-Dr-8-Dha-Ep r-Olmzhqg-Sgk Discontinued 1 CAP PO Daily May 02, 2022 12:00am May 03, 2022 2:39pm Start: 05-02-2022 End: 05-03-2022 take 3 capsules by mouth once daily Kgqej-Rx-4-Fot-Ecx-Fcfodnw-Ast Discontin ued 1 CAP PO Daily May 01, 2022 11:00pm May 03, 2022 1:39pm Vzqkv-Cg-5-Vdt-Dof-Betghrz-A st 1,090-764-22-80 mg Capsule (3 sources) Start: 05-02-2022 End: 05-03-2022 Alxeh-Cd-6-Pgw-Hvm-Rtopvbb-A st 1,902-136-56-80 mg Capsule Discontinued 1 CAP PO Daily May 02, 2022 12:00am May 03, 2022 2:39pm Start: 05-02-2022 End: 05-03-2022 Nhhxw-Va-8-Tgo-Hib-Qlmlysr-A st 1,267-961-27-80 mg Capsule Discontinued 1 CAP PO Daily May 01, 2022 [...] (Therapy completed) ondansetron 8 mg oral tablet (18 sources) Serotonin-3 Receptor Antagonist Start: 05-03-2022 End: 03-03-2024 take 1 tablet by mouth every eight hours as needed for nausea Ondansetron Hcl 8 mg tablet Discontinued 8 MG PO Q8H as needed for Nausea May 03, 2022 12:00am March 24, 2023 10:40am prochlorperazine 10 mg oral tablet (9 sources) Phenothiazine Start: 08-05-2022 End: 03-24-2023 take 1 tablet by mouth every six hours as needed for nausea and vomiting Prochlorperazine Maleate (Compazine) 10 mg Tablet Discontinued 10 MG PO Q6H as needed for Nausea And Vomiting August 05, 2022 1:00am March 24, 2023 10:40am sod sulf-pot chloride-mag sulf 1.479-0.188- 0.225 gram tablet (1 source) Start: 03-19-2023 End: 03-02-2024 sod sulf-pot chloride-mag sulf 1.479-0.188- 0.225 gram tablet Indications: Primary malignant neoplasm of sigmoid colon (CMS-HCC) Please see instructional sheet given by physicians office. 24 tablet 03/19/2023 03/02/2024 Discontinued Vit C-E-Zinc Lf-Ltjg-Vxv-Zeax (Icaps Areds2) 250 mg-200 unit -12.5 mg-1 mg Capsule (7 sources) Start: 06-25-2023 End: 11-17-2023 take 2 capsules by mouth once daily Vit C-E-Zinc Uo-Fvak-Bmg-Zeax (Icaps Areds2) 250 mg-200 unit -12.5 mg-1 mg Capsule Discontinued 2 CAP PO Daily June 25, 2023 12:00am November 17, 2023 8:48am Start: 06-25-2023 End: 11-17-2023 take 2 capsules by mouth once daily Vit C-E-Zinc Er-Tyfc-Fqd-Zeax (Icaps Areds2) 250 mg-200 unit -12.5 mg-1 mg Capsule Discontinued 2 CAP PO Daily June 25, 2023 1:00am November 17, 2023 9:48am Start: 06-25-2023 take 2 capsules by m outh once daily Vit C-E-Zinc Kt-Qonm-Uwu-Zeax (Icaps Areds2) 250 mg-200 unit -12.5 mg-1 mg Capsule Active 2 CAP PO Daily June 25, 2023 1:00am Start: 06-25-2023 take 2 capsules by m outh once daily Vit C-E-Zinc Kg-Zvqh-Sfl-Zeax (Icaps Areds2) 250 mg-200 unit -12.5 mg-1 mg Capsule Active 2 CAP PO Daily June 25, 2023 12:00am Vitamin A-Vitamin C-Vit E-Min (Ocuvite) Tablet (14 sources) Start: 05-02-2022 End: 05-27-2022 take 1 [...] Problem Classification Problem Date Documented Date Episodic/Chronic Anxiety disorders (7 sources) Anxiety; Translations: [Other specified anxiety disorders] Onset: 12-20-2024 07-01-2024 Chronic Bacterial infection; unspecified site (1 source) Other specified bacterial agents as the cause of diseases classified elsewhere Episodic Cancer of colon (20 sources) Malignant tumor of colon; Translations: [Malignant neoplasm of colon, unspecified] Onset: 04-17-2022 06-03-2022 Chronic Cancer of colon (4 sources) Personal history of other malignant neoplasm of large intestine; Translations: [History of malignant neoplasm of colon] Onset: 03-03-2024 03-03-2024 Episodic Conditions associated with dizziness or vertigo (1 source) Benign paroxysmal vertigo, unspecified ear Episodic Diseases of mouth; excluding dental (10 sources) Hypertrophy of salivary gland; Translations: [Hypertrophy of salivary gland] Onset: 12-20-2024 11-17-2023 Episodic E Codes: Cut/pierceb (1 source) Contact with contaminated hypodermic needle, initial encounter; Translations: [CNTCT CONTAMINAT HYPODRM NEEDL INIT] Onset: 09-18-2022 Episodic Esophageal disorders (2 sources) Laryngopharyngeal reflux; Translations: [Gastro-esophageal reflux disease without esophagitis] 12-21-2024 Chronic Glaucoma (7 sources) Unspecified glaucoma; Translations: [Bilateral glaucoma] Onset: 04-22-2022 05-15-2022 Chronic Maintenance chemotherapy; radiotherapy (20 sources) Patient encounter status; Translations: [Encounter for antineoplastic chemotherapy] Onset: 12-20-2024 06-03-2022 Chronic Open wounds of extremities (4 sources) Puncture wound without foreign body of left index finger without damage to nail, initial encounter; Translations: [PW W/O FB LT IF W/O DMG NAIL INIT] Onset: 09-01-2022 Episodic Osteoarthritis (7 sources) Osteoarthritis; Translations: [Unspecified osteoarthritis, unspecified site] Onset: 12-20-2024 07-01-2024 Chronic Other nervous system disorders (12 sources) Peripheral neuropathy due to and following chemotherapy; Translations: [Drug-induced polyneuropathy] Onset: 12-20-2024 07-22-2022 Chronic Other nervous system disorders (6 sources) Drug-induced polyneuropathy; Translations: [Polyneuropathy due to other toxic agents] 08-19-2022 Chronic Other screening for suspected conditions (not mental disorders or infectious disease) (18 sources) Liver function tests abnormal; Translations: [Other specified abnormal findings of blood chemistry] Onset: 12-20-2024 07-22-2022 Episodic Other upper respiratory disease (5 sources) Chronic pharyngitis; Translations: [Chronic pharyngitis] Onset: 12-20-2024 12-14-2024 Chronic Other upper respiratory disease (2 sources) Chronic pharyngitis; Translations: [Chronic pharyngitis] 12-14-2024 Chronic Other upper respiratory disease (2 sources) Feeling of lump in throat; Translations: [Globus sensation] 12-21-2024 Episodic Other upper respiratory infections (1 source) [...] Other Problems Problem Classification Problem Date Documented Date Episodic/Chronic Abdominal pain (9 sources) Generalized abdominal pain; Translations: [Left lower quadrant pain] Onset: 01-09-2022 Episodic Other aftercare (1 source) Other intermediate frame tender (current) drug therapy; Translations: [OTH [employer] CURRENT DRUG THERAPY] Onset: 04-22-2022 Episodic Other circulatory disease (1 source) Elevated blood-pressure reading, without diagnosis of hypertension; Translations: [ELEVATED BP READING W/O DX HTN] Onset: 04-22-2022 Episodic Other complications of ; puerperium affecting management of mother (6 sources) hemorrhage; Translations: [Other immediate hemorrhage] Onset: 05-15-2022 05-15-2022 Episodic Other female genital disorders (6 sources) Pelvic congestion syndrome; Translations: [Other specified conditions associated with female genital organs and menstrual cycle] Onset: 02-20-2023 03-19-2023 Episodic Other nutritional; endocrine; and metabolic disorders (1 source) Abnormal weight loss; Translations: [ABNORMAL WEIGHT LOSS] Onset: 03-21-2022 Episodic Residual codes; unclassified (1 source) Past history of procedure; Translations: [Other specified postprocedural states] 03-24-2024 Episodic Screening and history of mental health and substance abuse codes (1 source) Personal history of nicotine dependence; Translations: [PERSONAL HISTORY OF NICOTINE DEPEND] Onset: 03-21-2022 Episodic Results Test Name Value Interpretation Reference Range Facility Basophils Auto (Bld) [#/Vol] on 08-24-2024 Basophils (Bld) [#/Vol] Automated basophil count 0.0-0.1 [facility] Basophils/100 WBC Auto (Bld) on 08-24-2024 Basophils/100 WBC (Bld) Automated basophil % 0.2-2.0 [facility] Eosinophils/100 WBC Auto (Bl d)on 08-24-2024 Eosinophils/100 WBC (Bld) Automated eosinophil % 0.9-7.0 [facility] Erythrocyte distribution wid th Auto (RBC) [Ratio]on 08-24-2024 Erythrocyte distribution width (RBC) [Ratio] Erythrocyte distribution width [Ratio] by Automated count 11.0-15.0 [facility] Estimated glomerular filtrat ion rate (GFR) non- Americanon 08-24-2024 GFR/1.73 sq M.predicted among non-blacks MDRD (S/P/Bld) [Vol rate/Area] Estimated glomerular filtration rate (GFR) non- >=60 mL/min/1.73 m 2 [facility] Globulin Calc (S) [Mass/Vol] on 08-24-2024 Globulin (S) [Mass/Vol] Serum globulin measurement by calculation (mass/volume) [facility] Hematocrit Auto (Bld) [Volum e fraction]on 08-24-2024 Hematocrit (Bld) [Volume fraction] Hematocrit [Volume Fraction] of Blood by Automated count 36.0-48.0 [facility] Hemoglobin [Mass/volume] in Bloodon 08-24-2024 Hemoglobin (Bld) [Mass/Vol] Hemoglobin [Mass/volume] in Blood 12.0-16.0 [facility] Laboratory - Chemistry and C hemistry - challengeon 08-24-2024 Albumin [Mass/Vol] 3.9 g/dL 3.4-5.0 [facility] ALP [Catalytic activity/Vol] 75 U/L 46-116 [facility] ALT [Catalytic activity/Vol] 20 U/L 14-59 [facility] AST [Catalytic activity/Vol] 20 U/L 15-37 [facility] Bilirubin [Mass/Vol] 0.6 mg/dL 0.2-1.0 [facility] Calcium [Mass/Vol] 9.3 mg/dL 8.5-10.1 [facility] Chloride [Moles/Vol] 103 mmol/L 98-107 [facility] CO2 [Moles/Vol] 27.7 mmol/L 21.0-32.0 [facility] Creatinine [Mass/Vol] 0.69 mg/dL 0.55-1.02 [facility] GFR/1.73 sq M.predicted MDRD (S/P/Bld) [Vol rate/Area] mL/min/{1.73_m2} >=60 mL/min/1.73 m 2 [facility] Glucose [Mass/Vol] 106 mg/dL 74-106 [facility] Potassium [Moles/Vol] 4.2 mmol/L 3.5-5.1 [facility] Protein [Mass/Vol] 7.4 g/dL 6.4-8.2 [facility] Sodium [Moles/Vol] 135 mmol/L Low 136-145 [facility] Urea nitrogen [Mass/Vol] 11.0 mg/dL 7.0-18.0 [facility] Urea nitrogen/Creatinine [Mass ratio] 15.9 mg/mg [facility] Laboratory - Hematology and Cell countson 08-24-2024 Immature granulocytes/100 WBC (Bld) 0.2 % 0.0-0.5 [facility] Leukocytes [#/volume] correc audrey for nucleated erythrocytes in Blood by Automated counon 08-24-2024 WBC corrected for nucl RBC Auto (Bld) [#/Vol] Leukocytes [#/volume] corrected for nucleated erythrocytes in Blood by Automated coun 4.0-11.0 [facility] Lymphocytes Auto (Bld) [#/Vo l]on 08-24-2024 Lymphocytes (Bld) [#/Vol] Lymphocytes [#/volume] in Blood by Automated count 1.2-3.8 [facility] Lymphocytes/100 WBC Auto (Bl d)on 08-24-2024 Lymphocytes/100 WBC (Bld) Lymphocytes/100 leukocytes in Blood by Automated count 20.5-60.0 [facility] MCH Auto (RBC) [Entitic mass ]on 08-24-2024 MCH (RBC) [Entitic mass] MCH [Entitic mass] by Automated count 26.7-34.0 [facility] MCHC Auto (RBC) [Mass/Vol]on 08-24-2024 MCHC (RBC) [Mass/Vol] MCHC [Mass/volume] by Automated count 29.9-35.2 [facility] MCV Auto (RBC) [Entitic vol] on 08-24-2024 MCV (RBC) [Entitic vol] MCV [Entitic volume] by Automated count 81.0-99.0 [facility] Monocytes Auto (Bld) [#/Vol] on 08-24-2024 Monocytes (Bld) [#/Vol] Automated blood monocyte count 0.3-0.8 [facility] Monocytes/100 WBC Auto (Bld) on 08-24-2024 Monocytes/100 WBC (Bld) Automated monocyte % 1.7-12.0 [facility] Neutrophils Auto (Bld) [#/Vo l]on 08-24-2024 Neutrophils (Bld) [#/Vol] Neutrophils [#/volume] in Blood by Automated count 1.4-6.5 [facility] Neutrophils/100 WBC Auto (Bl d)on 08-24-2024 Neutrophils/100 WBC (Bld) Automated neutrophil % 43.0-75.0 [facility] No Panel Informationon 08-24 Eosinophils # (Auto) 0.1 10 3/uL 0.0-0.7 [facility] Immature Granulocyte # (Auto) 0.01 10 3/uL 0.00-0.03 [facility] Platelet mean volume Auto (B ld) [Entitic vol]on 08-24-2024 Platelet mean volume (Bld) [Entitic vol] Platelet mean volume [Entitic volume] in Blood by Automated count 9.5-13.5 [facility] Platelets Auto (Bld) [#/Vol] on 02-18-2025 Platelets (Bld) [#/Vol] Platelets [#/volume] in Blood by Automated count 150-450 [facility] RBC Auto (Bld) [#/Vol]on RBC (Bld) [#/Vol] Erythrocytes [#/volu me] in Blood by Automated count 4.20-5.40 [facility] Serum or plasma albumin/glob ulin mass ratioon 08-24-2024 Albumin/Globulin [Mass ratio] Serum or plasma albumin/globulin mass ratio [facility] Serum or plasma anion gap de terminationon 08-24-2024 Anion gap [Moles/Vol] Serum or plasma an ion gap determination [facility] Basophils Auto (Bld) [#/Vol] on 01-15-2024 Basophils (Bld) [#/Vol] 0.1 10 3/uL 0.0-0.1 [facility] Basophils/100 WBC Auto (Bld) on 01-15-2024 Basophils/100 WBC (Bld) 1.0 % 0.2-2.0 [facility] Eosinophils/100 WBC Auto (Bl d)on 01-15-2024 Eosinophils/100 WBC (Bld) 1.8 % 0.9-7.0 [facility] Erythrocyte distribution wid th Auto (RBC) [Ratio]on 01-15-2024 Erythrocyte distribution width (RBC) [Ratio] 13.1 % 11.0-15.0 [facility] Estimated glomerular filtrat ion rate (GFR) non- Americanon 01-15-2024 GFR/1.73 sq M.predicted among non-blacks MDRD (S/P/Bld) [Vol rate/Area] mL/min/{1.73_m2} >=60 [facility] Globulin Calc (S) [Mass/Vol] on 01-15-2024 Globulin (S) [Mass/Vol] 3.6 g/dL [facility] Hematocrit Auto (Bld) [Volum e fraction]on 01-15-2024 Hematocrit (Bld) [Volume fraction] 42.6 % 36.0-48.0 [facility] Hemoglobin [Mass/volume] in Bloodon 01-15-2024 Hemoglobin (Bld) [Mass/Vol] 13.7 g/dL 12.0-16.0 [facility] Laboratory - Chemistry and C hemistry - challengeon 01-15-2024 Albumin [Mass/Vol] 4.0 g/dL 3.4-5.0 [facility] ALP [Catalytic activity/Vol] 90 U/L 46-116 [facility] ALT [Catalytic activity/Vol] 22 U/L 14-59 [facility] AST [Catalytic activity/Vol] 21 U/L 15-37 [facility] Bilirubin [Mass/Vol] 0.6 mg/dL 0.2-1.0 [facility] Calcium [Mass/Vol] 9.6 mg/dL 8.5-10.1 [facility] Chloride [Moles/Vol] 102 mmol/L 98-107 [facility] CO2 [Moles/Vol] 26.2 mmol/L 21.0-32.0 [facility] Creatinine [Mass/Vol] 0.60 mg/dL 0.55-1.02 [facility] GFR/1.73 sq M.predicted MDRD (S/P/Bld) [Vol rate/Area] mL/min/{1.73_m2} >=60 [facility] Glucose [Mass/Vol] 107 mg/dL High 74-106 [facility] Potassium [Moles/Vol] 4.2 mmol/L 3.5-5.1 [facility] Protein [Mass/Vol] 7.6 g/dL 6.4-8.2 [facility] Sodium [Moles/Vol] 136 mmol/L 136-145 [facility] Urea nitrogen [Mass/Vol] 13.0 mg/dL 7.0-18.0 [facility] Urea nitrogen/Creatinine [Mass ratio] 21.7 mg/mg [facility] Laboratory - Hematology and Cell countson 01-15-2024 Immature granulocytes/100 WBC (Bld) 0.2 % 0.0-0.5 [facility] Leukocytes [#/volume] correc audrey for nucleated erythrocytes in Blood by Automated counon 01-15-2024 WBC corrected for nucl RBC Auto (Bld) [#/Vol] 5.0 10 3/uL 4.0-11.0 [facility] Lymphocytes Auto (Bld) [#/Vo l]on 01-15-2024 Lymphocytes (Bld) [#/Vol] 2.0 10 3/uL 1.2-3.8 [facility] Lymphocytes/100 WBC Auto (Bl d)on 01-15-2024 Lymphocytes/100 WBC (Bld) 39.4 % 20.5-60.0 [facility] MCH Auto (RBC) [Entitic mass ]on 01-15-2024 MCH (RBC) [Entitic mass] 32.2 pg 26.7-34.0 [facility] MCHC Auto (RBC) [Mass/Vol]on 01-15-2024 MCHC (RBC) [Mass/Vol] 32.2 g/dL 29.9-35.2 [facility] MCV Auto (RBC) [Entitic vol] on 01-15-2024 MCV (RBC) [Entitic vol] 100.0 fL High 81.0-99.0 [facility] Monocytes Auto (Bld) [#/Vol] on 01-15-2024 Monocytes (Bld) [#/Vol] 0.5 10 3/uL 0.3-0.8 [facility] Monocytes/100 WBC Auto (Bld) on 01-15-2024 Monocytes/100 WBC (Bld) 9.1 % 1.7-12.0 [facility] Neutrophils Auto (Bld) [#/Vo l]on 01-15-2024 Neutrophils (Bld) [#/Vol] 2.4 10 3/uL 1.4-6.5 [facility] Neutrophils/100 WBC Auto (Bl d)on 01-15-2024 Neutrophils/100 WBC (Bld) 48.5 % 43.0-75.0 [facility] No Panel Informationon 01-14 Eosinophils # (Auto) 0.1 10 3/uL 0.0-0.7 [facility] Immature Granulocyte # (Auto) 0.01 10 3/uL 0.00-0.03 [facility] Platelet mean volume Auto (B ld) [Entitic vol]on 01-15-2024 Platelet mean volume (Bld) [Entitic vol] 10.9 fL 9.5-13.5 [facility] Platelets Auto (Bld) [#/Vol] on 01-15-2024 Platelets (Bld) [#/Vol] 197 10 3/uL 150-450 [facility] RBC Auto (Bld) [#/Vol]on RBC (Bld) [#/Vol] 4.26 10 6/uL 4.20-5.40 [facility] Serum or plasma albumin/glob ulin mass ratioon 01-15-2024 Albumin/Globulin [Mass ratio] 1.1 {ratio} [facility] Serum or plasma anion gap de terminationon 01-15-2024 Anion gap [Moles/Vol] 12.0 mmol/L [facility] Basophils Auto (Bld) [#/Vol] on 11-26-2023 Basophils (Bld) [#/Vol] 0.0 10 3/uL 0.0-0.1 [facility] Basophils/100 WBC Auto (Bld) on 11-26-2023 Basophils/100 WBC (Bld) 0.9 % 0.2-2.0 [facility] Cholesterol in LDL Calc [Mas s/Vol]on 11-26-2023 Cholesterol in LDL [Mass/Vol] 179.0 mg/dL [facility] Comment on above: <100 mg/dl [id number] 0-129 mg/dl NEAR OR ABOVE [id number] mg/dl BORDERLINE [id number] mg/dl HIGH>190 mg/dl VERY HIGH Cholesterol in VLDL Calc [Ma ss/Vol]on 11-26-2023 Cholesterol in VLDL [Mass/Vol] 28.0 mg/dL [facility] Eosinophils/100 WBC Auto (Bl d)on 11-26-2023 Eosinophils/100 WBC (Bld) 2.4 % 0.9-7.0 [facility] Erythrocyte distribution wid th Auto (RBC) [Ratio]on 11-26-2023 Erythrocyte distribution width (RBC) [Ratio] 13.2 % 11.0-15.0 [facility] Estimated glomerular filtrat ion rate (GFR) non- Americanon 11-26-2023 GFR/1.73 sq M.predicted among non-blacks MDRD (S/P/Bld) [Vol rate/Area] mL/min/{1.73_m2} >=60 [facility] Globulin Calc (S) [Mass/Vol] on 11-26-2023 Globulin (S) [Mass/Vol] 3.5 g/dL [facility] Glucose mean value [Mass/vol ume] in Blood Estimated from glycated hemoglobinon 11-26-2023 Average glucose Estimated from glycated hemoglobin (Bld) [Mass/Vol] 94 mg/dL [facility] Hematocrit Auto (Bld) [Volum e fraction]on 11-26-2023 Hematocrit (Bld) [Volume fraction] 41.5 % 36.0-48.0 [facility] Hemoglobin [Mass/volume] in Bloodon 11-26-2023 Hemoglobin (Bld) [Mass/Vol] 13.4 g/dL 12.0-16.0 [facility] Laboratory - Chemistry and C hemistry - challengeon 11-26-2023 Albumin [Mass/Vol] 3.9 g/dL 3.4-5.0 [facility] ALP [Catalytic activity/Vol] 101 U/L 46-116 [facility] ALT [Catalytic activity/Vol] 29 U/L 14-59 [facility] AST [Catalytic activity/Vol] 19 U/L 15-37 [facility] Bilirubin [Mass/Vol] 0.5 mg/dL 0.2-1.0 [facility] Calcium [Mass/Vol] 9.5 mg/dL 8.5-10.1 [facility] Chloride [Moles/Vol] 105 mmol/L 98-107 [facility] Cholesterol [Mass/Vol] 250 mg/dL High <=[address] [facility] Cholesterol in HDL [Mass/Vol] 43 mg/dL 40-60 [facility] Comment on above: > or =60 mg/dl - LOW CARDIOVASCULAR RISK<40 mg/dl - HIGH CARDIOVASCULAR RISK CO2 [Moles/Vol] 28.5 mmol/L 21.0-32.0 [facility] Creatinine [Mass/Vol] 0.57 mg/dL 0.55-1.02 [facility] GFR/1.73 sq M.predicted MDRD (S/P/Bld) [Vol rate/Area] mL/min/{1.73_m2} >=60 [facility] Glucose [Mass/Vol] 100 mg/dL 74-106 [facility] Potassium [Moles/Vol] 4.0 mmol/L 3.5-5.1 [facility] Protein [Mass/Vol] 7.4 g/dL 6.4-8.2 [facility] Sodium [Moles/Vol] 142 mmol/L 136-145 [facility] Triglyceride [Mass/Vol] 140 mg/dL <=150 [facility] TSH Qn 1.818 m[IU]/L 0.358-3.740 [facility] Urea nitrogen [Mass/Vol] 16.0 mg/dL 7.0-18.0 [facility] Urea nitrogen/Creatinine [Mass ratio] 28.1 mg/mg [facility] Laboratory - Hematology and Cell countson 11-26-2023 HbA1c (Bld) [Mass fraction] 4.9 % 4.5-6.2 [facility] Comment on above: ADA RECOMMENDED LIMI T 4.0 - 6.0ADA THERAPEUTIC TARGET < 7.0ACTION SUGGESTED> 7.0 Immature granulocytes/100 WBC (Bld) 0.2 % 0.0-0.5 [facility] Leukocytes [#/volume] correc audrey for nucleated erythrocytes in Blood by Automated counon 11-26-2023 WBC corrected for nucl RBC Auto (Bld) [#/Vol] 4.6 10 3/uL 4.0-11.0 [facility] Lymphocytes Auto (Bld) [#/Vo l]on 11-26-2023 Lymphocytes (Bld) [#/Vol] 2.1 10 3/uL 1.2-3.8 [facility] Lymphocytes/100 WBC Auto (Bl d)on 11-26-2023 Lymphocytes/100 WBC (Bld) 44.7 % 20.5-60.0 [facility] MCH Auto (RBC) [Entitic mass ]on 11-26-2023 MCH (RBC) [Entitic mass] 31.5 pg 26.7-34.0 [facility] MCHC Auto (RBC) [Mass/Vol]on 11-26-2023 MCHC (RBC) [Mass/Vol] 32.3 g/dL 29.9-35.2 [facility] MCV Auto (RBC) [Entitic vol] on 11-26-2023 MCV (RBC) [Entitic vol] 97.4 fL 81.0-99.0 [facility] Monocytes Auto (Bld) [#/Vol] on 11-26-2023 Monocytes (Bld) [#/Vol] 0.4 10 3/uL 0.3-0.8 [facility] Monocytes/100 WBC Auto (Bld) on 11-26-2023 Monocytes/100 WBC (Bld) 8.5 % 1.7-12.0 [facility] Neutrophils Auto (Bld) [#/Vo l]on 11-26-2023 Neutrophils (Bld) [#/Vol] 2.0 10 3/uL 1.4-6.5 [facility] Neutrophils/100 WBC Auto (Bl d)on 11-26-2023 Neutrophils/100 WBC (Bld) 43.3 % 43.0-75.0 [facility] No Panel Informationon 11-25 Eosinophils # (Auto) 0.1 10 3/uL 0.0-0.7 [facility] Immature Granulocyte # (Auto) 0.01 10 3/uL 0.00-0.03 [facility] Platelet mean volume Auto (B ld) [Entitic vol]on 11-26-2023 Platelet mean volume (Bld) [Entitic vol] 11.4 fL 9.5-13.5 [facility] Platelets Auto (Bld) [#/Vol] on 11-26-2023 Platelets (Bld) [#/Vol] 210 10 3/uL 150-450 [facility] RBC Auto (Bld) [#/Vol]on RBC (Bld) [#/Vol] 4.26 10 6/uL 4.20-5.40 [facility] Serum or plasma albumin/glob ulin mass ratioon 11-26-2023 Albumin/Globulin [Mass ratio] 1.1 {ratio} [facility] Serum or plasma anion gap de terminationon 11-26-2023 Anion gap [Moles/Vol] 12.5 mmol/L [facility] Serum or plasma total choles terol/high density lipoprotein (HDL) cholesterol mass johan 11-26-2023 Cholesterol.total/Chol esterol in HDL [Mass ratio] 5.8 {ratio} [facility] Comment on above: 3.3 - 4.4 LOW RISK4. 4 - 7.1 AVERAGE RISK7.1 - 11.0 MODERATE RISK>11.0 HIGH RISK Basophils Auto (Bld) [#/Vol] on 09-18-2023 Basophils (Bld) [#/Vol] 0.1 10 3/uL 0.0-0.1 [facility] Basophils/100 WBC Auto (Bld) on 09-18-2023 Basophils/100 WBC (Bld) 1.1 % 0.2-2.0 [facility] Eosinophils/100 WBC Auto (Bl d)on 09-18-2023 Eosinophils/100 WBC (Bld) 2.2 % 0.9-7.0 [facility] Erythrocyte distribution wid th Auto (RBC) [Ratio]on 09-18-2023 Erythrocyte distribution width (RBC) [Ratio] 12.2 % 11.0-15.0 [facility] Estimated glomerular filtrat ion rate (GFR) non- Americanon 09-18-2023 GFR/1.73 sq M.predicted among non-blacks MDRD (S/P/Bld) [Vol rate/Area] mL/min/{1.73_m2} >=60 [facility] Globulin Calc (S) [Mass/Vol] on 09-18-2023 Globulin (S) [Mass/Vol] 3.3 g/dL [facility] Hematocrit Auto (Bld) [Volum e fraction]on 09-18-2023 Hematocrit (Bld) [Volume fraction] 42.5 % 36.0-48.0 [facility] Hemoglobin [Mass/volume] in Bloodon 09-18-2023 Hemoglobin (Bld) [Mass/Vol] 13.5 g/dL 12.0-16.0 [facility] Laboratory - Chemistry and C hemistry - challengeon 09-18-2023 Albumin [Mass/Vol] 3.8 g/dL 3.4-5.0 [facility] ALP [Catalytic activity/Vol] 89 U/L 46-116 [facility] ALT [Catalytic activity/Vol] 26 U/L 14-59 [facility] AST [Catalytic activity/Vol] 19 U/L 15-37 [facility] Bilirubin [Mass/Vol] 0.4 mg/dL 0.2-1.0 [facility] Calcium [Mass/Vol] 8.9 mg/dL 8.5-10.1 [facility] Chloride [Moles/Vol] 105 mmol/L 98-107 [facility] CO2 [Moles/Vol] 29.0 mmol/L 21.0-32.0 [facility] Creatinine [Mass/Vol] 0.71 mg/dL 0.55-1.02 [facility] GFR/1.73 sq M.predicted MDRD (S/P/Bld) [Vol rate/Area] mL/min/{1.73_m2} >=60 [facility] Glucose [Mass/Vol] 84 mg/dL 74-106 [facility] Potassium [Moles/Vol] 4.2 mmol/L 3.5-5.1 [facility] Protein [Mass/Vol] 7.1 g/dL 6.4-8.2 [facility] Sodium [Moles/Vol] 142 mmol/L 136-145 [facility] Urea nitrogen [Mass/Vol] 13.0 mg/dL 7.0-18.0 [facility] Urea nitrogen/Creatinine [Mass ratio] 18.3 mg/mg [facility] Laboratory - Hematology and Cell countson 09-18-2023 Immature granulocytes/100 WBC (Bld) 0.2 % 0.0-0.5 [facility] Leukocytes [#/volume] correc audrey for nucleated erythrocytes in Blood by Automated counon 09-18-2023 WBC corrected for nucl RBC Auto (Bld) [#/Vol] 4.6 10 3/uL 4.0-11.0 [facility] Lymphocytes Auto (Bld) [#/Vo l]on 09-18-2023 Lymphocytes (Bld) [#/Vol] 2.6 10 3/uL 1.2-3.8 [facility] Lymphocytes/100 WBC Auto (Bl d)on 09-18-2023 Lymphocytes/100 WBC (Bld) 56.8 % 20.5-60.0 [facility] MCH Auto (RBC) [Entitic mass ]on 09-18-2023 MCH (RBC) [Entitic mass] 31.5 pg 26.7-34.0 [facility] MCHC Auto (RBC) [Mass/Vol]on 09-18-2023 MCHC (RBC) [Mass/Vol] 31.8 g/dL 29.9-35.2 [facility] MCV Auto (RBC) [Entitic vol] on 09-18-2023 MCV (RBC) [Entitic vol] 99.1 fL 81.0-99.0 [facility] Monocytes Auto (Bld) [#/Vol] on 09-18-2023 Monocytes (Bld) [#/Vol] 0.4 10 3/uL 0.3-0.8 [facility] Monocytes/100 WBC Auto (Bld) on 09-18-2023 Monocytes/100 WBC (Bld) 8.2 % 1.7-12.0 [facility] Neutrophils Auto (Bld) [#/Vo l]on 09-18-2023 Neutrophils (Bld) [#/Vol] 1.5 10 3/uL 1.4-6.5 [facility] Neutrophils/100 WBC Auto (Bl d)on 09-18-2023 Neutrophils/100 WBC (Bld) 31.5 % 43.0-75.0 [facility] No Panel Informationon 09-17 Eosinophils # (Auto) 0.1 10 3/uL 0.0-0.7 [facility] Immature Granulocyte # (Auto) 0.01 10 3/uL 0.00-0.03 [facility] Platelet mean volume Auto (B ld) [Entitic vol]on 09-18-2023 Platelet mean volume (Bld) [Entitic vol] 11.1 fL 9.5-13.5 [facility] Platelets Auto (Bld) [#/Vol] on 09-18-2023 Platelets (Bld) [#/Vol] 196 10 3/uL 150-450 [facility] RBC Auto (Bld) [#/Vol]on RBC (Bld) [#/Vol] 4.29 10 6/uL 4.20-5.40 [facility] Serum or plasma albumin/glob ulin mass ratioon 09-18-2023 Albumin/Globulin [Mass ratio] 1.2 {ratio} [facility] Serum or plasma anion gap de terminationon 09-18-2023 Anion gap [Moles/Vol] 12.2 mmol/L [facility] Alanine aminotransferase [En zymatic activity/volume] in Serum or PlasmaOrdered By: Isaías Jordan on 03-20-2023 ALT [Catalytic activity/Vol] 16 U/L [facility] ALT [Catalytic activity/Vol] Alanine aminotransferase [Enzymatic activity/volume] in Serum or Plasma [facility] Albumin [Mass/volume] in Ser um or Plasma by Bromocresol green (BCG) dye binding methoOrdered By: Isaías Jordan on 03-20-2023 Albumin BCG dye [Mass/Vol] 4.4 g/dL 3.5-5.7 [facility] Albumin BCG dye [Mass/Vol] Albumin [Mass/volume] in Serum or Plasma by Bromocresol green (BCG) dye binding metho 3.5-5.7 [facility] Alkaline phosphatase [Enzyma tic activity/volume] in Serum or PlasmaOrdered By: Isaías Jordan on 03-20-2023 ALP [Catalytic activity/Vol] 88 U/L 34104 [facility] ALP [Catalytic activity/Vol] Alkaline phosphatase [Enzymatic activity/volume] in Serum or Plasma 104 [facility] Aspartate aminotransferase [ Enzymatic activity/volume] in Serum or PlasmaOrdered By: Isaías Jordan on 03-20-2023 AST [Catalytic activity/Vol] 21 U/L [facility] AST [Catalytic activity/Vol] Aspartate aminotransferase [Enzymatic activity/volume] in Serum or Plasma [facility] Basophils Auto (Bld) [#/Vol] Ordered By: Isaías Jordan on 03-20-2023 Basophils (Bld) [#/Vol] 0.1 10*3/uL 0.0-0.2 [facility] Basophils (Bld) [#/Vol] Automated basophil count 0.0-0.2 [facility] Basophils/100 WBC Auto (Bld) Ordered By: Isaías Jordan on 03-20-2023 Basophils/100 WBC (Bld) 1.2 % . [facility] Basophils/100 WBC (Bld) Automated basophil % . [facility] Bilirubin.total [Mass/volume ] in Serum or PlasmaOrdered By: Isaías Jordan on 03-20-2023 Bilirubin [Mass/Vol] 0.8 mg/dL 0.3-1.0 [facility] Bilirubin [Mass/Vol] Bilirubin.total [Mass/volume] in Serum or Plasma 0.3-1.0 [facility] Calcium [Mass/volume] in Ser um or PlasmaOrdered By: Isaías Jordan on 03-20-2023 Calcium [Mass/Vol] 10.3 mg/dL 8.6-10.3 [facility] Calcium [Mass/Vol] Calcium [Mass/volume ] in Serum or Plasma 8.6-10.3 [facility] Carbon dioxide, total [Moles /volume] in Serum or PlasmaOrdered By: Isaías Jordan on 03-20-2023 CO2 [Moles/Vol] 27.3 mmol/L 21.0-31.0 [facility] CO2 [Moles/Vol] Carbon dioxide, tota l [Moles/volume] in Serum or Plasma 21.0-31.0 [facility] Chloride [Moles/volume] in S daljit or PlasmaOrdered By: Isaías Jordan on 03-20-2023 Chloride [Moles/Vol] 105 mmol/L 98-107 [facility] Chloride [Moles/Vol] Chloride [Moles/vol ume] in Serum or Plasma 98-107 [facility] Creatinine [Mass/volume] in Serum or PlasmaOrdered By: Isaías Jordan on 03-20-2023 Creatinine [Mass/Vol] 0.73 mg/dL 0.60-1.20 [facility] Creatinine [Mass/Vol] Creatinine [Mass/v olume] in Serum or Plasma 0.60-1.20 [facility] Eosinophils Auto (Bld) [#/Vo l]Ordered By: Isaías Jordan on 03-20-2023 Eosinophils (Bld) [#/Vol] 0.1 10*3/uL 0.0-0.45 [facility] Eosinophils (Bld) [#/Vol] Automated eosinophil count 0.0-0.45 [facility] Eosinophils/100 WBC Auto (Bl d)Ordered By: Isaías Jordan on 03-20-2023 Eosinophils/100 WBC (Bld) 2.8 % . [facility] Eosinophils/100 WBC (Bld) Automated eosinophil % . [facility] Erythrocyte distribution wid th Auto (RBC) [Ratio]Ordered By: Isaías Jordan on 03-20-2023 Erythrocyte distribution width (RBC) [Ratio] 13.7 % 11.9-15.3 [facility] Erythrocyte distribution width (RBC) [Ratio] Erythrocyte distribution width [Ratio] by Automated count 11.9-15.3 [facility] Globulin Calc (S) [Mass/Vol] Ordered By: Isaías Jordan on 03-20-2023 Globulin (S) [Mass/Vol] 2.9 g/dL [facility] Globulin (S) [Mass/Vol] Serum globulin measurement by calculation (mass/volume) [facility] Glucose [Mass/volume] in Ser um or PlasmaOrdered By: Isaías Jordan on 03-20-2023 Glucose [Mass/Vol] 80 mg/dL 70-100 [facility] Comment on above: ADA recommended refe rence rangeRandom Glucose Reference Range is dependent on time and content of last meal. Glucose of more than 200 mg/dL in a nonstressed, ambulatory subject supports the diagnosis of Diabetes Mellitus. Glucose [Mass/Vol] Glucose [Mass/volume ] in Serum or Plasma 70-100 [facility] Comment on above: ADA recommended refe rence rangeRandom Glucose Reference Range is dependent on time and content of last meal. Glucose of more than 200 mg/dL in a nonstressed, ambulatory subject supports the diagnosis of Diabetes Mellitus. Hematocrit Auto (Bld) [Volum e fraction]Ordered By: Isaías Jordan on 03-20-2023 Hematocrit (Bld) [Volume fraction] 40.8 % 34.0-46.4 [facility] Hematocrit (Bld) [Volume fraction] Hematocrit [Volume Fraction] of Blood by Automated count 34.0-46.4 [facility] Hemoglobin [Mass/volume] in BloodOrdered By: Isaías Jordan on 03-20-2023 Hemoglobin (Bld) [Mass/Vol] 13.8 g/dL 11.8-15.4 [facility] Hemoglobin (Bld) [Mass/Vol] Hemoglobin [Mass/volume] in Blood 11.8-15.4 [facility] Leukocytes [#/volume] correc audrey for nucleated erythrocytes in Blood by Automated counOrdered By: Isaías Jordan on 03-20-2023 WBC corrected for nucl RBC Auto (Bld) [#/Vol] 5.1 10*3/uL 3.8-11.6 [facility] WBC corrected for nucl RBC Auto (Bld) [#/Vol] Leukocytes [#/volume] corrected for nucleated erythrocytes in Blood by Automated coun 3.8-11.6 [facility] Lymphocytes Auto (Bld) [#/Vo l]Ordered By: Isaías Jordan on 03-20-2023 Lymphocytes (Bld) [#/Vol] 2.0 10*3/uL 1.00-4.8 [facility] Lymphocytes (Bld) [#/Vol] Lymphocytes [#/volume] in Blood by Automated count 1.00-4.8 [facility] Lymphocytes/100 WBC Auto (Bl d)Ordered By: Isaías Jordan on 03-20-2023 Lymphocytes/100 WBC (Bld) 39.4 % . [facility] Lymphocytes/100 WBC (Bld) Lymphocytes/100 leukocytes in Blood by Automated count . [facility] MCH Auto (RBC) [Entitic mass ]Ordered By: Isaías Jordan on 03-20-2023 MCH (RBC) [Entitic mass] 32.3 pg 24.7-34.3 [facility] MCH (RBC) [Entitic mass] MCH [Entitic mass] by Automated count 24.7-34.3 [facility] MCHC Auto (RBC) [Mass/Vol]Or dered By: Isaías Jordan on 03-20-2023 MCHC (RBC) [Mass/Vol] 33.7 g/dL 32.0-35.0 [facility] MCHC (RBC) [Mass/Vol] MCHC [Mass/volume] by Automated count 32.0-35.0 [facility] MCV Auto (RBC) [Entitic vol] Ordered By: Isaías Jordan on 03-20-2023 MCV (RBC) [Entitic vol] 95.7 fL 80-100 [facility] MCV (RBC) [Entitic vol] MCV [Entitic volume] by Automated count 80-100 [facility] Monocytes Auto (Bld) [#/Vol] Ordered By: Isaías Jordan on 03-20-2023 Monocytes (Bld) [#/Vol] 0.5 10*3/uL 0.0-0.8 [facility] Monocytes (Bld) [#/Vol] Automated blood monocyte count 0.0-0.8 [facility] Monocytes/100 WBC Auto (Bld) Ordered By: Isaías Jordan on 03-20-2023 Monocytes/100 WBC (Bld) 9.0 % . [facility] Monocytes/100 WBC (Bld) Automated monocyte % . [facility] Neutrophils Auto (Bld) [#/Vo l]Ordered By: Isaías Jordan on 03-20-2023 Neutrophils (Bld) [#/Vol] 2.4 10*3/uL 1.8-7.7 [facility] Neutrophils (Bld) [#/Vol] Neutrophils [#/volume] in Blood by Automated count 1.8-7.7 [facility] Neutrophils/100 WBC Auto (Bl d)Ordered By: Isaías Jordan on 03-20-2023 Neutrophils/100 WBC (Bld) 47.6 % . [facility] Neutrophils/100 WBC (Bld) Automated neutrophil % . [facility] No Panel InformationOrdered By: Isaías Jordan on 03-20-2023 Estimated GFR (CKD-EPI) > 60.0 mL/Min [facility] Creatinine Clearance (Chem 86.44 [facility] Nucleated erythrocytes [Pres ence] in Blood by Automated countOrdered By: Isaías Jordan on 03-20-2023 Nucleated RBC Auto Ql (Bld) 0.1 /100{WBC} 0-0.5 [facility] Nucleated RBC Auto Ql (Bld) Nucleated erythrocytes [Presence] in Blood by Automated count 0-0.5 [facility] Platelet mean volume Auto (B ld) [Entitic vol]Ordered By: Isaías Jordan on 03-20-2023 Platelet mean volume (Bld) [Entitic vol] 8.9 fL 6.3-10.7 [facility] Platelet mean volume (Bld) [Entitic vol] Platelet mean volume [Entitic volume] in Blood by Automated count 6.3-10.7 [facility] Platelets Auto (Bld) [#/Vol] Ordered By: Isaías Jordan on 03-20-2023 Platelets (Bld) [#/Vol] 198 10*3/uL 150-450 [facility] Platelets (Bld) [#/Vol] Platelets [#/volume] in Blood by Automated count 150-450 [facility] Potassium [Moles/volume] in Serum or PlasmaOrdered By: Isaías Jordan on 03-20-2023 Potassium [Moles/Vol] 4.3 mmol/L 3.5-5.1 [facility] Potassium [Moles/Vol] Potassium [Moles/v olume] in Serum or Plasma 3.5-5.1 [facility] Protein [Mass/volume] in Ser um or PlasmaOrdered By: Isaías Jordan on 03-20-2023 Protein [Mass/Vol] 7.3 g/dL 6.4-8.9 [facility] Protein [Mass/Vol] Protein [Mass/volume ] in Serum or Plasma 6.4-8.9 [facility] RBC Auto (Bld) [#/Vol]Ordere d By: Isaías Jordan on 03-20-2023 RBC (Bld) [#/Vol] 4.26 10*6/uL 3.60-5.00 [facility] RBC (Bld) [#/Vol] Erythrocytes [#/volu me] in Blood by Automated count 3.60-5.00 [facility] Serum or plasma albumin/glob ulin mass ratioOrdered By: Isaías Jordan on 03-20-2023 Albumin/Globulin [Mass ratio] 1.5 {ratio} [facility] Albumin/Globulin [Mass ratio] Serum or plasma albumin/globulin mass ratio [facility] Serum or plasma anion gap de terminationOrdered By: Isaías Jordan on 03-20-2023 Anion gap [Moles/Vol] 11.0 mmol/L 6.0-15.[address] [facility] Anion gap [Moles/Vol] Serum or plasma an ion gap determination 6.0-15.0 [facility] Serum or plasma carcinoembry onic antigen measurement (mass/volume)Ordered By: Isaías Jordan on 03-20-2023 Carcinoembryonic Ag [Mass/Vol] 3.3 ng/mL High 0.0-3.0 [facility] Carcinoembryonic Ag [Mass/Vol] Serum or plasma carcinoembryonic antigen measurement (mass/volume) High 0.0-3.0 [facility] Sodium [Moles/volume] in Ser um or PlasmaOrdered By: Isaías Jordan on 03-20-2023 Sodium [Moles/Vol] 139 mmol/L 136-145 [facility] Sodium [Moles/Vol] Sodium [Moles/volume ] in Serum or Plasma 136-145 [facility] Urea nitrogen [Mass/volume] in Serum or PlasmaOrdered By: Isaías Jordan on 03-20-2023 Urea nitrogen [Mass/Vol] 16 mg/dL 01-28 [facility] Urea nitrogen [Mass/Vol] Urea nitrogen [Mass/volume] in Serum or Plasma 01-28 [facility] WBC Auto (Bld) [#/Vol]Ordere d By: Isaías Jordan on 03-20-2023 WBC (Bld) [#/Vol] 5.1 10*3/uL 3.8-11.6 [facility] WBC (Bld) [#/Vol] Leukocytes [#/volume ] in Blood by Automated count 3.8-11.6 [facility] CBC AUTO DIFFon 11-16-2022 BASO # 0.0 103/ul Normal 0.0-0.1 [facility] Comment on above: Performed By: #### C BC #### [facility] [address] [place] [address] Dr. Doreen Betancourt Basophils/100 WBC (Bld) 0.6 % Normal 0.2-2.0 [facility] Comment on above: Performed By: #### C BC #### [facility] [address] [place] [address] Dr. Doreen Betancourt EO # 0.0 103/ul Normal 0.0-0.7 [facility] Comment on above: Performed By: #### C BC #### [facility] [address] [place] [address] Dr. Doreen Betancourt Eosinophils/100 WBC (Bld) 0.6 % Critically low 0.9-7.0 [facility] Comment on above: Performed By: #### C BC #### [facility] [address] [place] [address] Dr. Doreen Betancourt Erythrocyte distribution width (RBC) [Ratio] 13.7 % Normal 11.0-15.0 [facility] Comment on above: Performed By: #### C BC #### [facility] [address] [place] [address] Dr. Doreen Betancourt Hematocrit (Bld) [Volume fraction] 41.0 % Normal 36.0-48.0 [facility] Comment on above: Performed By: #### C BC #### [facility] [address] [place] [address] Dr. Doreen Betancourt Hemoglobin (Bld) [Mass/Vol] 13.1 g/dL Normal 12.0-16.0 [facility] Comment on above: Performed By: #### C BC #### [facility] [address] [place] [address] Dr. Doreen Betancourt IG # 0.00 10e3/ul Normal 0.00-0.03 [facility] Comment on above: Performed By: #### C BC #### [facility] [address] [place] [address] Dr. Doreen Betancourt IG % 0.0 % Normal 0.0-0.5 [facility] Comment on above: Performed By: #### C BC #### [facility] [address] [place] [address] Dr. Doreen Betancourt LYMPH # 2.0 103/ul Normal 1.2-3.8 [facility] Comment on above: Performed By: #### C BC #### [facility] [address] [place] [address] Dr. Doreen Betancourt Lymphocytes/100 WBC (Bld) 55.3 % Normal 20.5-60.0 [facility] Comment on above: Performed By: #### C BC #### [facility] [address] [place] [address] Dr. Doreen Betancourt MANUAL DIFF REQ NO Normal [facility] Comment on above: Performed By: #### C BC #### [facility] [address] [place] [address] Dr. Doreen Betancourt MCH (RBC) [Entitic mass] 33.2 pg Normal 26.7-34.0 [facility] Comment on above: Performed By: #### C BC #### [facility] [address] [place] [address] Dr. Doreen Betancourt MCHC (RBC) [Mass/Vol] 32.0 g/dL Normal 29.9-35.2 [facility] Comment on above: Performed By: #### C BC #### [facility] [address] [place] [address] Dr. Doreen Betancourt MCV (RBC) [Entitic vol] 104.1 fL Critically high 81.0-99.0 [facility] Comment on above: Performed By: #### C BC #### [facility] [address] [place] [address] Dr. Doreen Betancourt MONO # 0.7 103/ul Normal 0.3-0.8 [facility] Comment on above: Performed By: #### C BC #### [facility] [address] [place] [address] Dr. Doreen Betancourt Monocytes/100 WBC (Bld) 18.7 % Critically high 1.7-12.0 [facility] Comment on above: Performed By: #### C BC #### [facility] [address] [address] [address] Doreen Betancourt NEUT # 0.9 103/ul Critically low 1.4-6.5 [facility] Comment on above: Performed By: #### C BC #### [facility] [address] [address] [address] Doreen Betancourt Neutrophils/100 WBC (Bld) 24.8 % Critically low 43.0-75.0 [facility] Comment on above: Performed By: #### C BC #### [facility] [address] [place] [address] Dr. Doreen Betancourt Platelet mean volume (Bld) [Entitic vol] 10.5 fL Normal 9.5-13.5 [facility] Comment on above: Performed By: #### C BC #### [facility] [address] [place] [address] Dr. Doreen Betancourt PLT 121 103/ul Critically low 150-450 [facility] Comment on above: Performed By: #### C BC #### [facility] [address] [place] [address] Dr. Doreen Betancourt RBC 3.94 106/ul Critically low 4.20-5.40 [facility] Comment on above: Performed By: #### C BC #### [facility] [address] [place] [address] Dr. Doreen Betancourt WBC 3.6 103/ul Critically low 4.0-11.0 [facility] Comment on above: Performed By: #### C BC #### [facility] [address] [place] [address] Dr. Doreen Betancourt MAGNESIUMon 11-16-2022 Magnesium [Mass/Vol] 2.0 mg/dL Normal 1.8-2.4 [facility] Comment on above: Performed By: #### M G, CMP #### [facility] [address] [place] [address] Dr. Doreen Betancourt PROF 14(COMP METB)on 023 Albumin [Mass/Vol] 3.7 g/dL Normal 3.4-5.0 [facility] Comment on above: Performed By: #### M G, CMP #### [facility] [address] [place] [address] Dr. Doreen Betancourt Albumin/Globulin [Mass ratio] 1.0 {ratio} Normal [facility] Comment on above: Performed By: #### M G, CMP #### [facility] [address] [place] [address] Dr. Doreen Betancourt ALP [Catalytic activity/Vol] 161 U/L Critically high 46-116 [facility] Comment on above: Performed By: #### M G, CMP #### [facility] [address] [place] [address] Dr. Doreen Betancourt ALT [Catalytic activity/Vol] 49 U/L Normal 14-59 [facility] Comment on above: Performed By: #### M G, CMP #### [facility] [address] [place] [address] Dr. Doreen Betancourt Anion gap [Moles/Vol] 9.8 mmol/L Normal [facility] Comment on above: Performed By: #### M G, CMP #### [facility] [address] [place] [address] Dr. Doreen Betancourt AST [Catalytic activity/Vol] 44 U/L Critically high 15-37 [facility] Comment on above: Performed By: #### M G, CMP #### [facility] [address] [place] [address] Dr. Doreen Betancourt Bilirubin [Mass/Vol] 0.4 mg/dL Normal 0.2-1.0 [facility] Comment on above: Performed By: #### M G, CMP #### [facility] [address] [place] [address] Dr. Doreen Betancourt Calcium [Mass/Vol] 9.6 mg/dL Normal 8.5-10.1 [facility] Comment on above: Performed By: #### M G, CMP #### [facility] [address] [place] [address] Dr. Doreen Betancourt Chloride [Moles/Vol] 106 mmol/L Normal 98-107 [facility] Comment on above: Performed By: #### M G, CMP #### [facility] [address] [address] [address] Doreen Betancourt CO2 [Moles/Vol] 30.1 mmol/L Normal 21.0-32.0 [facility] Comment on above: Performed By: #### M G, CMP #### [facility] [address] [place] [address] Dr. Doreen Betancourt Creatinine [Mass/Vol] 0.68 mg/dL Normal 0.55-1.02 [facility] Comment on above: Performed By: #### M G, CMP #### [facility] [address] [place] [address] Dr. Doreen Betancourt EGFR-AF MONEGASQUE >60 Normal >=60 [facility] Comment on above: Performed By: #### M G, CMP #### [facility] [address] [place] [address] Dr. Doreen Betancourt EGFR-NON AF MONEGASQUE >60 Normal >=60 [facility] Comment on above: Performed By: #### M G, CMP #### [facility] [address] [place] [address] Dr. Doreen Bteancourt Globulin (S) [Mass/Vol] 3.7 g/dL Normal [facility] Comment on above: Performed By: #### M G, CMP #### [facility] [address] [place] [address] Dr. Doreen Betancourt Glucose [Mass/Vol] 107 mg/dL Critically high 74-106 [facility] Comment on above: Performed By: #### M G, CMP #### [facility] [address] [place] [address] Dr. Doreen Betancourt Potassium [Moles/Vol] 4.9 mmol/L Normal 3.5-5.1 [facility] Comment on above: Performed By: #### M G, CMP #### [facility] [address] [place] [address] Dr. Doreen Betancourt Protein [Mass/Vol] 7.4 g/dL Normal 6.4-8.2 [facility] Comment on above: Performed By: #### M G, CMP #### [facility] [address] [place] [address] Dr. Doreen Betancourt Sodium [Moles/Vol] 141 mmol/L Normal 136-145 [facility] Comment on above: Performed By: #### M G, CMP #### [facility] [address] [place] [address] Dr. Doreen Betancourt Urea nitrogen [Mass/Vol] 11.0 mg/dL Normal 7.0-18.0 [facility] Comment on above: Performed By: #### M G, CMP #### [facility] [address] [place] [address] Dr. Doreen Betancourt Urea nitrogen/Creatinine [Mass ratio] 16.2 mg/mg Normal [facility] Comment on above: Performed By: #### M G, CMP #### [facility] [address] [place] [address] Dr. Doreen Betancourt CBC AUTO DIFFon 11-02-2022 BASO # 0.0 103/ul Normal 0.0-0.1 [facility] Comment on above: Performed By: #### M G, CMP #### [facility] [address] [place] [address] Dr. Doreen Betancourt Basophils/100 WBC (Bld) 0.5 % Normal 0.2-2.0 [facility] Comment on above: Performed By: #### M G, CMP #### [facility] [address] [place] [address] Dr. Doreen Betancourt EO # 0.0 103/ul Normal 0.0-0.7 [facility] Comment on above: Performed By: #### M G, CMP #### [facility] [address] [place] [address] Dr. Doreen Betancourt Eosinophils/100 WBC (Bld) 0.8 % Critically low 0.9-7.0 [facility] Comment on above: Performed By: #### M G, CMP #### [facility] [address] [place] [address] Dr. Doreen Betancourt Erythrocyte distribution width (RBC) [Ratio] 13.2 % Normal 11.0-15.0 [facility] Comment on above: Performed By: #### M G, CMP #### [facility] [address] [place] [address] Dr. Doreen Betancourt Hematocrit (Bld) [Volume fraction] 40.7 % Normal 36.0-48.0 [facility] Comment on above: Performed By: #### M G, CMP #### [facility] [address] [place] [address] Dr. Doreen Betancourt Hemoglobin (Bld) [Mass/Vol] 13.5 g/dL Normal 12.0-16.0 [facility] Comment on above: Performed By: #### M Salena, CMP #### [facility] [address] [place] [address] Dr. Doreen Betancourt IG # 0.00 10e3/ul Normal 0.00-0.03 [facility] Comment on above: Performed By: #### Gay Salena, CMP #### [facility] [address] [place] [address] Dr. Doreen Betancourt IG % 0.0 % Normal 0.0-0.5 [facility] Comment on above: Performed By: #### Gay Martino, CMP #### [facility] [address] [place] [address] Dr. Doreen Betancourt LYMPH # 1.9 103/ul Normal 1.2-3.8 [facility] Comment on above: Performed By: #### Gay Martino, CMP #### [facility] [address] [place] [address] Dr. Doreen Betancourt Lymphocytes/100 WBC (Bld) 51.8 % Normal 20.5-60.0 [facility] Comment on above: Performed By: #### M G, CMP #### [facility] [address] [place] [address] Dr. Doreen Betancourt MANUAL DIFF REQ NO Normal [facility] Comment on above: Performed By: #### M G, CMP #### [facility] [address] [place] [address] Dr. Doreen Betancourt MCH (RBC) [Entitic mass] 34.3 pg Critically high 26.7-34.0 [facility] Comment on above: Performed By: #### M G, CMP #### [facility] [address] [place] [address] Dr. Doreen Betancourt MCHC (RBC) [Mass/Vol] 33.2 g/dL Normal 29.9-35.2 [facility] Comment on above: Performed By: #### M G, CMP #### [facility] [address] [place] [address] Dr. Doreen Betancourt MCV (RBC) [Entitic vol] 103.3 fL Critically high 81.0-99.0 [facility] Comment on above: Performed By: #### M G, CMP #### [facility] [address] [place] [address] Dr. Doreen Betancourt MONO # 0.5 103/ul Normal 0.3-0.8 [facility] Comment on above: Performed By: #### M G, CMP #### [facility] [address] [place] [address] Dr. Doreen Betancourt Monocytes/100 WBC (Bld) 13.9 % Critically high 1.7-12.0 [facility] Comment on above: Performed By: #### M G, CMP #### [facility] [address] [place] [address] Dr. Doreen Betancourt NEUT # 1.2 103/ul Critically low 1.4-6.5 [facility] Comment on above: Performed By: #### M G, CMP #### [facility] [address] [place] [address] Dr. Doreen Betancourt Neutrophils/100 WBC (Bld) 33.0 % Critically low 43.0-75.0 [facility] Comment on above: Performed By: #### M G, CMP #### [facility] [address] [place] [address] Dr. Doreen Betancourt Platelet mean volume (Bld) [Entitic vol] 10.0 fL Normal 9.5-13.5 [facility] Comment on above: Performed By: #### M G, CMP #### [facility] [address] [place] [address] Dr. Doreen Betancourt PLT 129 103/ul Critically low 150-450 [facility] Comment on above: Performed By: #### M G, CMP #### [facility] [address] [place] [address] Dr. Doreen Betancourt RBC 3.94 106/ul Critically low 4.20-5.40 [facility] Comment on above: Performed By: #### M G, CMP #### [facility] [address] [place] [address] Dr. Doreen Betancourt WBC 3.7 103/ul Critically low 4.0-11.0 [facility] Comment on above: Performed By: #### M G, CMP #### [facility] [address] [place] [address] Dr. Doreen Betancourt MAGNESIUMon 11-02-2022 Magnesium [Mass/Vol] 2.0 mg/dL Normal 1.8-2.4 [facility] Comment on above: Performed By: #### M G, CMP #### [facility] [address] [place] [address] Dr. Doreen Betancourt PROF 14(COMP METB)on 023 Albumin [Mass/Vol] 3.7 g/dL Normal 3.4-5.0 [facility] Comment on above: Performed By: #### M G, CMP #### [facility] [address] [place] [address] Dr. Doreen Betancourt Albumin/Globulin [Mass ratio] 1.0 {ratio} Normal [facility] Comment on above: Performed By: #### M G, CMP #### [facility] [address] [place] [address] Dr. Doreen Betancourt ALP [Catalytic activity/Vol] 133 U/L Critically high 46-116 [facility] Comment on above: Performed By: #### M G, CMP #### [facility] [address] [place] [address] Dr. Doreen Betancourt ALT [Catalytic activity/Vol] 47 U/L Normal 14-59 [facility] Comment on above: Performed By: #### M G, CMP #### [facility] [address] [address] [address] Doreen Betancourt Anion gap [Moles/Vol] 10.8 mmol/L Normal [facility] Comment on above: Performed By: #### M G, CMP #### [facility] [address] [address] [address] Doreen Betancourt AST [Catalytic activity/Vol] 39 U/L Critically high 15-37 [facility] Comment on above: Performed By: #### M G, CMP #### [facility] [address] [address] [address] Doreen Betancourt Bilirubin [Mass/Vol] 0.5 mg/dL Normal 0.2-1.0 [facility] Comment on above: Performed By: #### M G, CMP #### [facility] [address] [place] [address] Dr. Doreen Betancourt Calcium [Mass/Vol] 9.4 mg/dL Normal 8.5-10.1 [facility] Comment on above: Performed By: #### M G, CMP #### [facility] [address] [place] [address] Dr. Doreen Betancourt Chloride [Moles/Vol] 107 mmol/L Normal 98-107 [facility] Comment on above: Performed By: #### M G, CMP #### [facility] [address] [place] [address] Dr. Doreen Betancourt CO2 [Moles/Vol] 27.7 mmol/L Normal 21.0-32.0 [facility] Comment on above: Performed By: #### M G, CMP #### [facility] [address] [place] [address] Dr. Doreen Betancourt Creatinine [Mass/Vol] 0.70 mg/dL Normal 0.55-1.02 [facility] Comment on above: Performed By: #### M G, CMP #### [facility] [address] [address] [address] Doreen Betancourt EGFR-AF MONEGASQUE >60 Normal >=60 [facility] Comment on above: Performed By: #### M G, CMP #### [facility] [address] [address] [address] Doreen Betancourt EGFR-NON AF MONEGASQUE >60 Normal >=60 [facility] Comment on above: Performed By: #### M G, CMP #### [facility] [address] [address] [address] Doreen Betancourt Globulin (S) [Mass/Vol] 3.7 g/dL Normal [facility] Comment on above: Performed By: #### M G, CMP #### [facility] [address] [address] [address] Doreen Betancourt Glucose [Mass/Vol] 99 mg/dL Normal 74-106 [facility] Comment on above: Performed By: #### M G, CMP #### [facility] [address] [address] [address] Doreen Betancourt Potassium [Moles/Vol] 4.5 mmol/L Normal 3.5-5.1 [facility] Comment on above: Performed By: #### M G, CMP #### [facility] [address] [address] [address] Doreen Betancourt Protein [Mass/Vol] 7.4 g/dL Normal 6.4-8.2 [facility] Comment on above: Performed By: #### M G, CMP #### [facility] [address] [address] [address] Doreen Betancourt Sodium [Moles/Vol] 141 mmol/L Normal 136-145 [facility] Comment on above: Performed By: #### M G, CMP #### [facility] [address] [address] [address] Doreen Betancourt Urea nitrogen [Mass/Vol] 13.0 mg/dL Normal 7.0-18.0 [facility] Comment on above: Performed By: #### M G, CMP #### [facility] [address] [address] [address] Doreen Betancourt Urea nitrogen/Creatinine [Mass ratio] 18.6 mg/mg Normal [facility] Comment on above: Performed By: #### M G, CMP #### [facility] [address] [place] [address] Dr. Doreen Betancourt CBC AUTO DIFFon 10-19-2022 BASO # 0.1 103/ul Normal 0.0-0.1 [facility] Comment on above: Performed By: #### C BC #### [facility] [address] [place] [address] Dr. Doreen Betancourt Basophils/100 WBC (Bld) 1.0 % Normal 0.2-2.0 [facility] Comment on above: Performed By: #### C BC #### [facility] [address] [place] [address] Dr. Doreen Betancourt EO # 0.0 103/ul Normal 0.0-0.7 [facility] Comment on above: Performed By: #### C BC #### [facility] [address] [place] [address] Dr. Doreen Betancourt Eosinophils/100 WBC (Bld) 0.8 % Critically low 0.9-7.0 [facility] Comment on above: Performed By: #### C BC #### [facility] [address] [place] [address] Dr. Doreen Betancourt Erythrocyte distribution width (RBC) [Ratio] 13.2 % Normal 11.0-15.0 [facility] Comment on above: Performed By: #### C BC #### [facility] [address] [place] [address] Dr. Doreen Betancourt Hematocrit (Bld) [Volume fraction] 40.3 % Normal 36.0-48.0 [facility] Comment on above: Performed By: #### C BC #### [facility] [address] [place] [address] Dr. Doreen Betancourt Hemoglobin (Bld) [Mass/Vol] 13.3 g/dL Normal 12.0-16.0 [facility] Comment on above: Performed By: #### C BC #### [facility] [address] [place] [address] Dr. Doreen Betancourt IG # 0.02 10e3/ul Normal 0.00-0.03 [facility] Comment on above: Performed By: #### C BC #### [facility] [address] [place] [address] Dr. Doreen Betancourt IG % 0.4 % Normal 0.0-0.5 [facility] Comment on above: Performed By: #### C BC #### [facility] [address] [place] [address] Dr. Doreen Betancourt LYMPH # 1.8 103/ul Normal 1.2-3.8 [facility] Comment on above: Performed By: #### C BC #### [facility] [address] [place] [address] Dr. Doreen Betancourt Lymphocytes/100 WBC (Bld) 36.8 % Normal 20.5-60.0 [facility] Comment on above: Performed By: #### C BC #### [facility] [address] [place] [address] Dr. Doreen Betancourt MANUAL DIFF REQ NO Normal [facility] Comment on above: Performed By: #### C BC #### [facility] [address] [place] [address] Dr. Doreen Betancourt MCH (RBC) [Entitic mass] 33.8 pg Normal 26.7-34.0 [facility] Comment on above: Performed By: #### C BC #### [facility] [address] [place] [address] Dr. Doreen Betancourt MCHC (RBC) [Mass/Vol] 33.0 g/dL Normal 29.9-35.2 [facility] Comment on above: Performed By: #### C BC #### [facility] [address] [place] [address] Dr. Doreen Betancourt MCV (RBC) [Entitic vol] 102.5 fL Critically high 81.0-99.0 [facility] Comment on above: Performed By: #### C BC #### [facility] [address] [place] [address] Dr. Doreen Betancourt MONO # 0.6 103/ul Normal 0.3-0.8 [facility] Comment on above: Performed By: #### C BC #### [facility] [address] [place] [address] Dr. Doreen Betancourt Monocytes/100 WBC (Bld) 12.3 % Critically high 1.7-12.0 [facility] Comment on above: Performed By: #### C BC #### [facility] [address] [place] [address] Dr. Doreen Betancourt NEUT # 2.4 103/ul Normal 1.4-6.5 [facility] Comment on above: Performed By: #### C BC #### [facility] [address] [place] [address] Dr. Doreen Betancourt Neutrophils/100 WBC (Bld) 48.7 % Normal 43.0-75.0 [facility] Comment on above: Performed By: #### C BC #### [facility] [address] [place] [address] Dr. Doreen Betancourt Platelet mean volume (Bld) [Entitic vol] 10.3 fL Normal 9.5-13.5 [facility] Comment on above: Performed By: #### C BC #### [facility] [address] [place] [address] Dr. Doreen Betancourt PLT 239 103/ul Normal 150-450 [facility] Comment on above: Performed By: #### C BC #### [facility] [address] [place] [address] Dr. Doreen Betancourt RBC 3.93 106/ul Critically low 4.20-5.40 [facility] Comment on above: Performed By: #### C BC #### [facility] [address] [place] [address] Dr. Doreen Betancourt WBC 4.9 103/ul Normal 4.0-11.0 [facility] Comment on above: Performed By: #### C BC #### [facility] [address] [place] [address] Dr. Doreen Betancourt MAGNESIUMon 10-19-2022 Magnesium [Mass/Vol] 1.9 mg/dL Normal 1.8-2.4 [facility] Comment on above: Performed By: #### M G, CMP #### [facility] [address] [place], [place] [id number] Dr. Doreen Betancourt PROF 14(COMP METB)on 023 Albumin [Mass/Vol] 3.5 g/dL Normal 3.4-5.0 [facility] Comment on above: Performed By: #### C MP, MG #### [facility] [address] [place] [address] Dr. Doreen Betancourt Albumin/Globulin [Mass ratio] 0.9 {ratio} Normal [facility] Comment on above: Performed By: #### C MP, MG #### [facility] [address] [place] [address] Dr. Doreen Betancourt ALP [Catalytic activity/Vol] 153 U/L Critically high 46-116 [facility] Comment on above: Performed By: #### C MP, MG #### [facility] [address] [place] [address] Dr. Doreen Betancourt ALT [Catalytic activity/Vol] 36 U/L Normal 14-59 [facility] Comment on above: Performed By: #### C MP, MG #### [facility] [address] [place] [address] Dr. Doreen Betancourt Anion gap [Moles/Vol] 11.7 mmol/L Normal [facility] Comment on above: Performed By: #### C MP, MG #### [facility] [address] [place] [address] Dr. Doreen Betancourt AST [Catalytic activity/Vol] 30 U/L Normal 15-37 [facility] Comment on above: Performed By: #### C MP, MG #### [facility] [address] [place] [address] Dr. Doreen Betancourt Bilirubin [Mass/Vol] 0.5 mg/dL Normal 0.2-1.0 [facility] Comment on above: Performed By: #### C MP, MG #### [facility] [address] [place] [address] Dr. Doreen Betancourt Calcium [Mass/Vol] 9.2 mg/dL Normal 8.5-10.1 [facility] Comment on above: Performed By: #### C MP, MG #### [facility] [address] [place] [address] Dr. Doreen Betancourt Chloride [Moles/Vol] 105 mmol/L Normal 98-107 [facility] Comment on above: Performed By: #### C MP, MG #### [facility] [address] [place] [address] Dr. Doreen Betancourt CO2 [Moles/Vol] 27.3 mmol/L Normal 21.0-32.0 [facility] Comment on above: Performed By: #### C MP, MG #### [facility] [address] [place] [address] Dr. Doreen Betancourt Creatinine [Mass/Vol] 0.75 mg/dL Normal 0.55-1.02 [facility] Comment on above: Performed By: #### C MP, MG #### [facility] [address] [place] [address] Dr. Doreen Betancourt EGFR-AF MONEGASQUE >60 Normal >=60 [facility] Comment on above: Performed By: #### C MP, MG #### [facility] [address] [place] [address] Dr. Doreen Betancourt EGFR-NON AF MONEGASQUE >60 Normal >=60 [facility] Comment on above: Performed By: #### C MP, MG #### [facility] [address] [place] [address] Dr. Doreen Betancourt Globulin (S) [Mass/Vol] 4.0 g/dL Normal [facility] Comment on above: Performed By: #### C MP, MG #### [facility] [address] [place] [address] Dr. Doreen Betancourt Glucose [Mass/Vol] 89 mg/dL Normal 74-106 [facility] Comment on above: Performed By: #### C MP, MG #### [facility] [address] [place] [address] Dr. Doreen Betancourt Potassium [Moles/Vol] 4.0 mmol/L Normal 3.5-5.1 [facility] Comment on above: Performed By: #### C MP, MG #### [facility] [address] [place] [address] Dr. Doreen Betancourt Protein [Mass/Vol] 7.5 g/dL Normal 6.4-8.2 [facility] Comment on above: Performed By: #### C MP, MG #### [facility] [address] [place] [address] Dr. Doreen Betancourt Sodium [Moles/Vol] 140 mmol/L Normal 136-145 [facility] Comment on above: Performed By: #### C MP, MG #### [facility] [address] [place] [address] Dr. Doreen Betancourt Urea nitrogen [Mass/Vol] 18.0 mg/dL Normal 7.0-18.0 [facility] Comment on above: Performed By: #### C MP, MG #### [facility] [address] [place] [address] Dr. Doreen Betancourt Urea nitrogen/Creatinine [Mass ratio] 24.0 mg/mg Normal [facility] Comment on above: Performed By: #### C MP, MG #### [facility] [address] [place] [address] Dr. Doreen Betancourt Magnesium [Mass/volume] in S daljit or PlasmaOrdered By: Isaías Jordan on 09-23-2022 Magnesium [Mass/Vol] 2.2 mg/dL 1.9-2.7 [facility] Magnesium [Mass/Vol] Magnesium [Mass/vol ume] in Serum or Plasma 1.9-2.7 [facility] CBC AUTO DIFFon 09-14-2022 BASO # 0.0 103/ul Normal 0.0-0.1 [facility] Comment on above: Performed By: #### C BC #### [facility] [address] [place] [address] Dr. Doreen Betancourt Basophils/100 WBC (Bld) 0.3 % Normal 0.2-2.0 [facility] Comment on above: Performed By: #### C BC #### [facility] [address] [place] [address] Dr. Doreen Betancourt EO # 0.0 103/ul Normal 0.0-0.7 [facility] Comment on above: Performed By: #### C BC #### [facility] [address] [place] [address] Dr. Doreen Betancourt Eosinophils/100 WBC (Bld) 0.9 % Normal 0.9-7.0 [facility] Comment on above: Performed By: #### C BC #### [facility] [address] [place] [address] Dr. Doreen Betancourt Erythrocyte distribution width (RBC) [Ratio] 16.3 % Critically high 11.0-15.0 [facility] Comment on above: Performed By: #### C BC #### [facility] [address] [place] [address] Dr. Doreen Betancourt Hematocrit (Bld) [Volume fraction] 37.3 % Normal 36.0-48.0 [facility] Comment on above: Performed By: #### C BC #### [facility] [address] [place] [address] Dr. Doreen Betancourt Hemoglobin (Bld) [Mass/Vol] 12.4 g/dL Normal 12.0-16.0 [facility] Comment on above: Performed By: #### C BC #### [facility] [address] [place] [address] Dr. Doreen Betancourt IG # 0.01 10e3/ul Normal 0.00-0.03 [facility] Comment on above: Performed By: #### C BC #### [facility] [address] [place] [address] Dr. Doreen Betancourt IG % 0.3 % Normal 0.0-0.5 [facility] Comment on above: Performed By: #### C BC #### [facility] [address] [place] [address] Dr. Doreen Betancourt LYMPH # 1.1 103/ul Critically low 1.2-3.8 [facility] Comment on above: Performed By: #### C BC #### [facility] [address] [place] [address] Dr. Doreen Betancourt Lymphocytes/100 WBC (Bld) 30.7 % Normal 20.5-60.0 [facility] Comment on above: Performed By: #### C BC #### [facility] [address] [place] [address] Dr. Doreen Betancourt MANUAL DIFF REQ NO Normal [facility] Comment on above: Performed By: #### C BC #### [facility] [address] [place] [address] Dr. Doreen Betancourt MCH (RBC) [Entitic mass] 34.3 pg Critically high 26.7-34.0 [facility] Comment on above: Performed By: #### C BC #### [facility] [address] [place] [address] Dr. Doreen Betancourt MCHC (RBC) [Mass/Vol] 33.2 g/dL Normal 29.9-35.2 [facility] Comment on above: Performed By: #### C BC #### [facility] [address] [place] [address] Dr. Doreen Betancourt MCV (RBC) [Entitic vol] 103.3 fL Critically high 81.0-99.0 [facility] Comment on above: Performed By: #### C BC #### [facility] [address] [place] [address] Dr. Doreen Betancourt MONO # 0.4 103/ul Normal 0.3-0.8 [facility] Comment on above: Performed By: #### C BC #### [facility] [address] [place] [address] Dr. Doreen Betancourt Monocytes/100 WBC (Bld) 11.4 % Normal 1.7-12.0 [facility] Comment on above: Performed By: #### C BC #### [facility] [address] [place] [address] Dr. Doreen Betancourt NEUT # 2.0 103/ul Normal 1.4-6.5 [facility] Comment on above: Performed By: #### C BC #### [facility] [address] [place] [address] Dr. Doreen Betancourt Neutrophils/100 WBC (Bld) 56.4 % Normal 43.0-75.0 [facility] Comment on above: Performed By: #### C BC #### [facility] [address] [place] [address] Dr. Doreen Betancourt Platelet mean volume (Bld) [Entitic vol] 10.0 fL Normal 9.5-13.5 [facility] Comment on above: Performed By: #### C BC #### [facility] [address] [place] [address] Dr. Doreen Betancourt PLT 128 103/ul Critically low 150-450 [facility] Comment on above: Performed By: #### C BC #### [facility] [address] [place] [address] Dr. Doreen Betancourt RBC 3.61 106/ul Critically low 4.20-5.40 [facility] Comment on above: Performed By: #### C BC #### [facility] [address] [place] [address] Dr. Doreen Betancourt WBC 3.5 103/ul Critically low 4.0-11.0 [facility] Comment on above: Performed By: #### C BC #### [facility] [address] [place] [address] Dr. Doreen Betancourt MAGNESIUMon 09-14-2022 Magnesium [Mass/Vol] 1.9 mg/dL Normal 1.8-2.4 [facility] Comment on above: Performed By: #### C VDTBH #### [facility] [address] [place] [address] Dr. Doreen Betancourt PROF 14(COMP METB)on 023 Albumin [Mass/Vol] 3.7 g/dL Normal 3.4-5.0 [facility] Comment on above: Performed By: #### C VDTBH #### [facility] [address] [place] [address] Dr. Doreen Betancourt Albumin/Globulin [Mass ratio] 1.1 {ratio} Normal [facility] Comment on above: Performed By: #### C VDTBH #### [facility] [address] [place] [address] Dr. Doreen Betancourt ALP [Catalytic activity/Vol] 138 U/L Critically high 46-116 [facility] Comment on above: Performed By: #### C VDTBH #### [facility] [address] [place] [address] Dr. Doreen Betancourt ALT [Catalytic activity/Vol] 42 U/L Normal 14-59 [facility] Comment on above: Performed By: #### C VDTBH #### [facility] [address] [place] [address] Dr. Doreen Betancourt Anion gap [Moles/Vol] 11.0 mmol/L Normal [facility] Comment on above: Performed By: #### C VDTBH #### [facility] [address] [place] [address] Dr. Doreen Betancourt AST [Catalytic activity/Vol] 36 U/L Normal 15-37 [facility] Comment on above: Performed By: #### C VDTBH #### [facility] [address] [place] [address] Dr. Doreen Betancourt Bilirubin [Mass/Vol] 0.5 mg/dL Normal 0.2-1.0 [facility] Comment on above: Performed By: #### C VDTBH #### [facility] [address] [place] [address] Dr. Doreen Betancourt Calcium [Mass/Vol] 9.6 mg/dL Normal 8.5-10.1 [facility] Comment on above: Performed By: #### C VDTBH #### [facility] [address] [place] [address] Dr. Doreen Betancourt Chloride [Moles/Vol] 104 mmol/L Normal 98-107 [facility] Comment on above: Performed By: #### C VDTBH #### [facility] [address] [place] [address] Dr. Doreen Betancourt CO2 [Moles/Vol] 29.8 mmol/L Normal 21.0-32.0 [facility] Comment on above: Performed By: #### C VDTBH #### [facility] [address] [place] [address] Dr. Doreen Betancourt Creatinine [Mass/Vol] 0.62 mg/dL Normal 0.55-1.02 [facility] Comment on above: Performed By: #### C VDTBH #### [facility] [address] [place] [address] Dr. Doreen Betancourt EGFR-AF MONEGASQUE >60 Normal >=60 [facility] Comment on above: Performed By: #### C VDTBH #### [facility] [address] [place] [address] Dr. Doreen Betancourt EGFR-NON AF MONEGASQUE >60 Normal >=60 [facility] Comment on above: Performed By: #### C VDTBH #### [facility] [address] [place] [address] Dr. Doreen Betancourt Globulin (S) [Mass/Vol] 3.4 g/dL Normal [facility] Comment on above: Performed By: #### C VDTBH #### [facility] [address] [place] [address] Dr. Doreen Betancourt Glucose [Mass/Vol] 115 mg/dL Critically high 74-106 [facility] Comment on above: Performed By: #### C VDTBH #### [facility] [address] [place] [address] Dr. Doreen Betancourt Potassium [Moles/Vol] 4.8 mmol/L Normal 3.5-5.1 [facility] Comment on above: Performed By: #### C VDTBH #### [facility] [address] [place] [address] Dr. Doreen Betancourt Protein [Mass/Vol] 7.1 g/dL Normal 6.4-8.2 [facility] Comment on above: Performed By: #### C VDTBH #### [facility] [address] [place] [address] Dr. Doreen Betancourt Sodium [Moles/Vol] 140 mmol/L Normal 136-145 [facility] Comment on above: Performed By: #### C VDTBH #### [facility] [address] [place] [address] Dr. Doreen Betancourt Urea nitrogen [Mass/Vol] 14.0 mg/dL Normal 7.0-18.0 [facility] Comment on above: Performed By: #### C VDTBH #### [facility] [address] [place] [address] Dr. Doreen Betancourt Urea nitrogen/Creatinine [Mass ratio] 22.6 mg/mg Normal [facility] Comment on above: Performed By: #### C VDTBH #### [facility] [address] [id number] [address] Doreen Betancourt HEP B SURFACE ANTIGEN SCREEN on 09-03-2022 HBsAg Screen Negative Normal Negative [facility] Comment on above: Performed By: #### C VDTBH #### [facility] [address] [place] [address] Dr. Doreen Betancourt HEPATITIS B SURFACE ANTIBODY , QUANTon 09-03-2022 Hepatitis B Surf AB Quant 46.7 mIU/mL Normal Immunity>9. 9 [facility] Comment on above: Result Comment: Stat us of Immunity Anti-HBs Level Inconsistent with Immunity 0.0 - 9.9 Consistent with Immunity >9.9 Performed By: #### M G, [facility] #### [facility] [address] [place] [address] Dr. Doreen Betancourt HEPATITIS C ANTIBODYon 09-03 Hep C Virus Ab Non-Reactive Normal Non Reactive [facility] Comment on above: Result Comment: HCV antibody alone does not differentiate between previously resolved infection and active infection. Equivocal and Reactive HCV antibody results should be followed up with an HCV RNA test to support the diagnosis of active HCV infection. Performed By: #### C VDTBH #### [facility] [address] [place] [address] Dr. Doreen Betancourt RPR QUANTon 09-03-2022 Rapid Plasma Reagin, Quant Non-Reactive Normal NonRea<1:1 [facility] Comment on above: Result Comment: Plea se Note: This test does not meet current guidelines for screening and diagnosis of syphilis. This test is intended for following treatment response in patients being treated for syphilis infection. To screen for syphilis infection, a reflex cascade that includes both RPR and a treponema-specific assay should be utilized, such as Treponema pallidum (Syphilis) Screening [place] (900977) or Rapid Plasma Reagin (RPR) Test With Reflex to Quantitative RPR and Confirmatory Treponema pallidum Antibodies (526571). Performed By: #### M G, CMP #### [facility] [address] [place] [address] Dr. Doreen Betancourt HIV 1/2 RAPID (EXPOSURE ONLY )on 09-01-2022 HIV AB Non-Reactive Normal NON-REACTIV E [facility] Comment on above: Performed By: #### M G, CMP #### [facility] [address] [place] [address] Dr. Doreen Betancourt HIV AG Non-Reactive Normal NON-REACTIV E [facility] Comment on above: Performed By: #### M G, CMP #### [facility] [address] [place] [address] Dr. Doreen Betancourt INTERNAL CONTROLS Within Normal Limits Normal Wi thin Normal Limits [facility] Comment on above: Performed By: #### M G, CMP #### [facility] [address] [place] [address] Dr. Doreen Betancourt RAPID HIV INFO SEE BELOW Normal [facility] Comment on above: Result Comment: This test is used for the initial screening of the exposure source. Confirmation of all reactive results will be obtained through reference lab testing. Performed By: #### M G, CMP #### [facility] [address] [place] [address] Dr. Doreen Betancuort CBC AUTO DIFFon 08-31-2022 BASO # 0.0 103/ul Normal 0.0-0.1 [facility] Comment on above: Performed By: #### M G, CMP #### [facility] [address] [place] [address] Dr. Doreen Betancourt Basophils/100 WBC (Bld) 0.7 % Normal 0.2-2.0 [facility] Comment on above: Performed By: #### M G, CMP #### [facility] [address] [place] [address] Dr. Doreen Betancourt EO # 0.0 103/ul Normal 0.0-0.7 [facility] Comment on above: Performed By: #### M G, CMP #### [facility] [address] [place] [address] Dr. Doreen Betancourt Eosinophils/100 WBC (Bld) 0.7 % Critically low 0.9-7.0 [facility] Comment on above: Performed By: #### M G, CMP #### [facility] [address] [place] [address] Dr. Doreen Betancourt Erythrocyte distribution width (RBC) [Ratio] 18.2 % Critically high 11.0-15.0 [facility] Comment on above: Performed By: #### M G, CMP #### [facility] [address] [place] [address] Dr. Doreen Betancourt Hematocrit (Bld) [Volume fraction] 37.8 % Normal 36.0-48.0 [facility] Comment on above: Performed By: #### M G, CMP #### [facility] [address] [place] [address] Dr. Doreen Betancourt Hemoglobin (Bld) [Mass/Vol] 12.3 g/dL Normal 12.0-16.0 [facility] Comment on above: Performed By: #### M G, CMP #### [facility] [address] [place] [address] Dr. Doreen Betancourt IG # 0.01 10e3/ul Normal 0.00-0.03 [facility] Comment on above: Performed By: #### M G, CMP #### [facility] [address] [place] [address] Dr. Doreen Betancourt IG % 0.3 % Normal 0.0-0.5 [facility] Comment on above: Performed By: #### M G, CMP #### [facility] [address] [place] [address] Dr. Doreen Betancourt LYMPH # 1.5 103/ul Normal 1.2-3.8 [facility] Comment on above: Performed By: #### M G, CMP #### [facility] [address] [place] [address] Dr. Doreen Betancourt Lymphocytes/100 WBC (Bld) 49.5 % Normal 20.5-60.0 [facility] Comment on above: Performed By: #### M G, CMP #### [facility] [address] [place] [address] Dr. Doreen Betancourt MANUAL DIFF REQ NO Normal [facility] Comment on above: Performed By: #### M G, CMP #### [facility] [address] [place] [address] Dr. Doreen Betancourt MCH (RBC) [Entitic mass] 33.3 pg Normal 26.7-34.0 [facility] Comment on above: Performed By: #### M G, CMP #### [facility] [address] [place] [address] Dr. Doreen Betancourt MCHC (RBC) [Mass/Vol] 32.5 g/dL Normal 29.9-35.2 [facility] Comment on above: Performed By: #### M G, CMP #### [facility] [address] [place] [address] Dr. Doreen Betancourt MCV (RBC) [Entitic vol] 102.4 fL Critically high 81.0-99.0 [facility] Comment on above: Performed By: #### M G, CMP #### [facility] [address] [place] [address] Dr. Doreen Betancourt MONO # 0.5 103/ul Normal 0.3-0.8 [facility] Comment on above: Performed By: #### M G, CMP #### [facility] [address] [place] [address] Dr. Doreen Betancourt Monocytes/100 WBC (Bld) 14.7 % Critically high 1.7-12.0 [facility] Comment on above: Performed By: #### M G, CMP #### [facility] [address] [place] [address] Dr. Doreen Betancoutr NEUT # 1.1 103/ul Critically low 1.4-6.5 [facility] Comment on above: Performed By: #### M G, CMP #### [facility] [address] [place] [address] Dr. Doreen Betancourt Neutrophils/100 WBC (Bld) 34.1 % Critically low 43.0-75.0 [facility] Comment on above: Performed By: #### M G, CMP #### [facility] [address] [place] [address] Dr. Doreen Betancourt Platelet mean volume (Bld) [Entitic vol] 11.1 fL Normal 9.5-13.5 [facility] Comment on above: Performed By: #### M G, CMP #### [facility] [address] [place] [address] Dr. Doreen Betancourt PLT 117 103/ul Critically low 150-450 [facility] Comment on above: Performed By: #### M G, CMP #### [facility] [address] [place] [address] Dr. Doreen Betancourt RBC 3.69 106/ul Critically low 4.20-5.40 [facility] Comment on above: Performed By: #### Gay G, CMP #### [facility] [address] [place] [address] Dr. Doreen Betancourt WBC 3.1 103/ul Critically low 4.0-11.0 [facility] Comment on above: Performed By: #### M G, CMP #### [facility] [address] [place] [address] Dr. Doreen Betancourt MAGNESIUMon 08-31-2022 Magnesium [Mass/Vol] 2.0 mg/dL Normal 1.8-2.4 [facility] Comment on above: Performed By: #### Gay G, CMP #### [facility] [address] [place] [address] Dr. Doreen Betancourt PROF 14(COMP METB)on 023 Albumin [Mass/Vol] 3.4 g/dL Normal 3.4-5.0 [facility] Comment on above: Performed By: #### M G, CMP #### [facility] [address] [place] [address] Dr. Doreen Betancourt Albumin/Globulin [Mass ratio] 1.0 {ratio} Normal [facility] Comment on above: Performed By: #### M G, CMP #### [facility] [address] [place], [place] [id number] Dr. Doreen Betancourt ALP [Catalytic activity/Vol] 121 U/L Critically high 46-116 [facility] Comment on above: Performed By: #### M G, CMP #### [facility] [address] [place] [address] Dr. Doreen Betancourt ALT [Catalytic activity/Vol] 52 U/L Normal 14-59 [facility] Comment on above: Performed By: #### M G, CMP #### [facility] [address] [address] [address] Doreen Betancourt Anion gap [Moles/Vol] 11.5 mmol/L Normal Th [facility] Comment on above: Performed By: #### M G, CMP #### [facility] [address] [place] [address] Dr. Doreen Betancourt AST [Catalytic activity/Vol] 34 U/L Normal 15-37 [facility] Comment on above: Performed By: #### M G, CMP #### [facility] [address] [place] [address] Dr. Doreen Betancourt Bilirubin [Mass/Vol] 0.4 mg/dL Normal 0.2-1.0 [facility] Comment on above: Performed By: #### M G, CMP #### [facility] [address] [place] [address] Dr. Doreen Betancourt Calcium [Mass/Vol] 9.5 mg/dL Normal 8.5-10.1 [facility] Comment on above: Performed By: #### M G, CMP #### [facility] [address] [place] [address] Dr. Doreen Betancourt Chloride [Moles/Vol] 106 mmol/L Normal 98-107 [facility] Comment on above: Performed By: #### M G, CMP #### [facility] [address] [place] [address] Dr. Doreen Betancourt CO2 [Moles/Vol] 28.6 mmol/L Normal 21.0-32.0 [facility] Comment on above: Performed By: #### M G, CMP #### [facility] [address] [place] [address] Dr. Doreen Betancourt Creatinine [Mass/Vol] 0.60 mg/dL Normal 0.55-1.02 [facility] Comment on above: Performed By: #### M G, CMP #### [facility] [address] [place] [address] Dr. Doreen Betancourt EGFR-AF MONEGASQUE >60 Normal >=60 [facility] Comment on above: Performed By: #### M G, CMP #### [facility] [address] [place] [address] Dr. Doreen Betancourt EGFR-NON AF MONEGASQUE >60 Normal >=60 [facility] Comment on above: Performed By: #### M G, CMP #### [facility] [address] [place] [address] Dr. Doreen Betancourt Globulin (S) [Mass/Vol] 3.5 g/dL Normal [facility] Comment on above: Performed By: #### M G, CMP #### [facility] [address] [place] [address] Dr. Doreen Betancourt Glucose [Mass/Vol] 95 mg/dL Normal 74-106 [facility] Comment on above: Performed By: #### M G, CMP #### [facility] [address] [place] [address] Dr. Doreen Betancourt Potassium [Moles/Vol] 4.1 mmol/L Normal 3.5-5.1 [facility] Comment on above: Performed By: #### M G, CMP #### [facility] [address] [place] [address] Dr. Doreen Betancourt Protein [Mass/Vol] 6.9 g/dL Normal 6.4-8.2 [facility] Comment on above: Performed By: #### M G, CMP #### [facility] [address] [place] [address] Dr. Doreen Betancourt Sodium [Moles/Vol] 142 mmol/L Normal 136-145 [facility] Comment on above: Performed By: #### M G, CMP #### [facility] [address] [place] [address] Dr. Doreen Betancourt Urea nitrogen [Mass/Vol] 13.0 mg/dL Normal 7.0-18.0 [facility] Comment on above: Performed By: #### M G, CMP #### [facility] [address] [place] [address] Dr. Doreen Betancourt Urea nitrogen/Creatinine [Mass ratio] 21.7 mg/mg Normal [facility] Comment on above: Performed By: #### M G, CMP #### [facility] [address] [place] [address] Dr. Doreen Betancourt CBC W MANUAL DIFFon 08-16-19 [address] [facility] Comment on above: Performed By: #### M G, CMP #### [facility] [address] [place] [address] Dr. Droeen Betancourt ATYPICAL LYMPH # Normal [facility] Comment on above: Performed By: #### M G, CMP #### [facility] [address] [place] [address] Dr. Doreen Betancourt ATYPICAL LYMPH % Normal [facility] Comment on above: Performed By: #### M G, CMP #### [facility] [address] [place] [address] Dr. Doreen Betancourt BAND # Normal 0.0-0.3 [facility] Comment on above: Performed By: #### M G, CMP #### [facility] [address] [place] [address] Dr. Doreen Betancourt BAND % Normal 0-5 [facility] Comment on above: Performed By: #### M G, CMP #### [facility] [address] [place] [address] Dr. Doreen Betancourt BASOM # 0.00 103/ul Normal 0.00-0.10 [facility] Comment on above: Performed By: #### M G, CMP #### [facility] [address] [place] [address] Dr. Doreen Betancourt BASOM % 0.0 % Critically low 0.2-2.0 [facility] Comment on above: Performed By: #### M G, CMP #### [facility] [address] [place] [address] Dr. Doreen Betancourt BLAST # Normal [facility] Comment on above: Performed By: #### M G, CMP #### [facility] [address] [place] [address] Dr. Doreen Betancourt BLAST % Normal [facility] Comment on above: Performed By: #### M G, CMP #### [facility] [address] [place] [address] Dr. Doreen Betancourt CORRECTED WBC Normal 4.0-11.0 [facility] Comment on above: Performed By: #### M G, CMP #### [facility] [address] [place] [address] Dr. Doreen Betancourt EOS # 0.00 103/ul Normal 0.00-0.70 [facility] Comment on above: Performed By: #### M G, CMP #### [facility] [address] [place] [address] Dr. Doreen Betancourt EOS% 0.0 % Critically low 0.9-7.0 [facility] Comment on above: Performed By: #### M G, CMP #### [facility] [address] [place] [address] Dr. Doreen Betancourt HCT 36.2 % Normal 36.0-48.0 [facility] Comment on above: Performed By: #### M G, CMP #### [facility] [address] [place] [address] Dr. Doreen Betancourt HGB 12.1 g/dl Normal 12.0-16.0 [facility] Comment on above: Performed By: #### M G, CMP #### [facility] [address] [place] [address] Dr. Doreen Betancourt LYMPHM # 2.08 103/ul Normal 1.20-3.80 [facility] Comment on above: Performed By: #### M G, CMP #### [facility] [address] [place] [address] Dr. Doreen Betancourt LYMPHM% 63.0 % Critically high 20.5-60.0 [facility] Comment on above: Performed By: #### M G, CMP #### [facility] [address] [place] [address] Dr. Doreen Betancourt MCH 33.0 pg Normal 26.7-34.0 [facility] Comment on above: Performed By: #### M G, CMP #### [facility] [address] [place] [address] Dr. Doreen Betancourt MCHC 33.4 g/dl Normal 29.9-35.2 [facility] Comment on above: Performed By: #### M G, CMP #### [facility] [address] [place] [address] Dr. Doreen Betancourt MCV 98.6 fL Normal 81.0-99.0 [facility] Comment on above: Performed By: #### M G, CMP #### [facility] [address] [place] [address] Dr. Doreen Betancourt METAMYELOCYTE # Normal [facility] Comment on above: Performed By: #### M G, CMP #### [facility] [address] [place] [address] Dr. Doreen Betancourt METAMYELOCYTE % Normal [facility] Comment on above: Performed By: #### M G, CMP #### [facility] [address] [place] [address] Dr. Doreen Betancourt MONOM# 0.33 103/ul Normal 0.30-0.80 [facility] Comment on above: Performed By: #### M G, CMP #### [facility] [address] [place] [address] Dr. Doreen Betancourt MONOM% 10.0 % Normal 1.7-12.0 [facility] Comment on above: Performed By: #### M G, CMP #### [facility] [address] [place] [address] Dr. Doreen Betancourt MPV 10.4 fL Normal 9.5-13.5 [facility] Comment on above: Performed By: #### M G, CMP #### [facility] [address] [place] [address] Dr. Doreen Betancourt MYELOCYTE # Normal [facility] Comment on above: Performed By: #### M G, CMP #### [facility] [address] [place] [address] Dr. Doreen Betancourt MYELOCYTE % Normal [facility] Comment on above: Performed By: #### M G, CMP #### [facility] [address] [place] [address] Dr. Doreen Betancourt NRBC Normal [facility] Comment on above: Performed By: #### M G, CMP #### [facility] [address] [address] [address] Doreen Betancourt PLT 92 103/ul Critically low 150-450 [facility] Comment on above: Performed By: #### M G, CMP #### [facility] [address] [place] [address] Dr. Doreen Betancourt RBC 3.67 106/ul Critically low 4.20-5.40 [facility] Comment on above: Performed By: #### M G, CMP #### [facility] [address] [place] [address] Dr. Doreen Betancourt RDW 17.8 % Critically high 11.0-15.0 [facility] Comment on above: Performed By: #### M G, CMP #### [facility] [address] [place] [address] Dr. Doreen Betancourt SEG # 0.89 103/ul Critically low 1.40-6.50 [facility] Comment on above: Performed By: #### M G, CMP #### [facility] [address] [place] [address] Dr. Doreen Betancourt SEG % 27.0 % Critically low 43.0-75.0 [facility] Comment on above: Performed By: #### M G, CMP #### [facility] [address] [place] [address] Dr. Doreen Betancourt WBC 3.3 103/ul Critically low 4.0-11.0 [facility] Comment on above: Performed By: #### M G, CMP #### [facility] [address] [place] [address] Dr. Doreen Betancourt MAGNESIUMon 08-16-2022 Magnesium [Mass/Vol] 2.1 mg/dL Normal 1.8-2.4 [facility] Comment on above: Performed By: #### C BC #### [facility] [address] [place] [address] Dr. Doreen Betancourt PROF 14(COMP METB)on 023 Albumin [Mass/Vol] 3.5 g/dL Normal 3.4-5.0 [facility] Comment on above: Performed By: #### C BC #### [facility] [address] [place] [address] Dr. Doreen Betancourt Albumin/Globulin [Mass ratio] 1.0 {ratio} Normal [facility] Comment on above: Performed By: #### C BC #### [facility] [address] [place] [address] Dr. Doreen Betancourt ALP [Catalytic activity/Vol] 131 U/L Critically high 46-116 [facility] Comment on above: Performed By: #### C BC #### [facility] [address] [place] [address] Dr. Doreen Betancourt ALT [Catalytic activity/Vol] 98 U/L Critically high 14-59 [facility] Comment on above: Performed By: #### C BC #### [facility] [address] [place] [address] Dr. Doreen Betancourt Anion gap [Moles/Vol] 12.3 mmol/L Normal Th [facility] Comment on above: Performed By: #### C BC #### [facility] [address] [place] [address] Dr. Doreen Betancourt AST [Catalytic activity/Vol] 78 U/L Critically high 15-37 [facility] Comment on above: Performed By: #### C BC #### [facility] [address] [place] [address] Dr. Doreen Betancourt Bilirubin [Mass/Vol] 0.3 mg/dL Normal 0.2-1.0 [facility] Comment on above: Performed By: #### C BC #### [facility] [address] [place] [address] Dr. Doreen Betancourt Calcium [Mass/Vol] 9.3 mg/dL Normal 8.5-10.1 [facility] Comment on above: Performed By: #### C BC #### [facility] [address] [place] [address] Dr. Doreen Betancourt Chloride [Moles/Vol] 104 mmol/L Normal 98-107 [facility] Comment on above: Performed By: #### C BC #### [facility] [address] [place] [address] Dr. Doreen Betancourt CO2 [Moles/Vol] 29.4 mmol/L Normal 21.0-32.0 [facility] Comment on above: Performed By: #### C BC #### [facility] [address] [place] [address] Dr. Doreen Betancourt Creatinine [Mass/Vol] 0.67 mg/dL Normal 0.55-1.02 [facility] Comment on above: Performed By: #### C BC #### [facility] [address] [place] [address] Dr. Doreen Betancourt EGFR-AF MONEGASQUE >60 Normal >=60 [facility] Comment on above: Performed By: #### C BC #### [facility] [address] [place] [address] Dr. Doreen Betacnourt EGFR-NON AF MONEGASQUE >60 Normal >=60 [facility] Comment on above: Performed By: #### C BC #### [facility] [address] [place] [address] Dr. Doreen Betancourt Globulin (S) [Mass/Vol] 3.5 g/dL Normal [facility] Comment on above: Performed By: #### C BC #### [facility] [address] [place] [address] Dr. Doreen Betnacourt Glucose [Mass/Vol] 100 mg/dL Normal 74-106 [facility] Comment on above: Performed By: #### C BC #### [facility] [address] [place] [address] Dr. Doreen Betancourt Potassium [Moles/Vol] 4.7 mmol/L Normal 3.5-5.1 [facility] Comment on above: Performed By: #### C BC #### [facility] [address] [place] [address] Dr. Doreen Betancourt Protein [Mass/Vol] 7.0 g/dL Normal 6.4-8.2 [facility] Comment on above: Performed By: #### C BC #### [facility] [address] [place] [address] Dr. Doreen Betancourt Sodium [Moles/Vol] 141 mmol/L Normal 136-145 [facility] Comment on above: Performed By: #### C BC #### [facility] [address] [place] [address] Dr. Doreen Betancourt Urea nitrogen [Mass/Vol] 13.0 mg/dL Normal 7.0-18.0 [facility] Comment on above: Performed By: #### C BC #### [facility] [address] [place] [address] Dr. Doreen Betancourt Urea nitrogen/Creatinine [Mass ratio] 19.4 mg/mg Normal [facility] Comment on above: Performed By: #### C BC #### [facility] [address] [place] [address] Dr. Doreen Betancourt CBC AUTO DIFFon 08-03-2022 BASO # 0.0 103/ul Normal 0.0-0.1 [facility] Comment on above: Performed By: #### M G, CMP #### [facility] [address] [place] [address] Dr. Doreen Betancourt Basophils/100 WBC (Bld) 0.6 % Normal 0.2-2.0 [facility] Comment on above: Performed By: #### M G, CMP #### [facility] [address] [place] [address] Dr. Doreen Betancourt EO # 0.0 103/ul Normal 0.0-0.7 [facility] Comment on above: Performed By: #### M G, CMP #### [facility] [address] [place] [address] Dr. Doreen Betancourt Eosinophils/100 WBC (Bld) 0.6 % Critically low 0.9-7.0 [facility] Comment on above: Performed By: #### M G, CMP #### [facility] [address] [place] [address] Dr. Doreen Betancourt Erythrocyte distribution width (RBC) [Ratio] 17.8 % Critically high 11.0-15.0 [facility] Comment on above: Performed By: #### M G, CMP #### [facility] [address] [place] [address] Dr. Doreen Betancourt Hematocrit (Bld) [Volume fraction] 36.1 % Normal 36.0-48.0 [facility] Comment on above: Performed By: #### M G, CMP #### [facility] [address] [place] [address] Dr. Doreen Betancourt Hemoglobin (Bld) [Mass/Vol] 12.6 g/dL Normal 12.0-16.0 [facility] Comment on above: Performed By: #### M G, CMP #### [facility] [address] [place] [address] Dr. Doreen Betancourt IG # 0.01 10e3/ul Normal 0.00-0.03 [facility] Comment on above: Performed By: #### M G, CMP #### [facility] [address] [place] [address] Dr. Doreen Betancourt IG % 0.3 % Normal 0.0-0.5 [facility] Comment on above: Performed By: #### M G, CMP #### [facility] [address] [place] [address] Dr. Doreen Betancourt LYMPH # 1.6 103/ul Normal 1.2-3.8 [facility] Comment on above: Performed By: #### M G, CMP #### [facility] [address] [place] [address] Dr. Doreen Betancourt Lymphocytes/100 WBC (Bld) 46.4 % Normal 20.5-60.0 [facility] Comment on above: Performed By: #### M G, CMP #### [facility] [address] [place] [address] Dr. Doreen Betancourt MANUAL DIFF REQ NO Normal [facility] Comment on above: Performed By: #### M G, CMP #### [facility] [address] [place] [address] Dr. Doreen Betancourt MCH (RBC) [Entitic mass] 32.1 pg Normal 26.7-34.0 [facility] Comment on above: Performed By: #### M G, CMP #### [facility] [address] [place] [address] Dr. Doreen Betancourt MCHC (RBC) [Mass/Vol] 34.9 g/dL Normal 29.9-35.2 [facility] Comment on above: Performed By: #### M G, CMP #### [facility] [address] [place] [address] Dr. Doreen Betancourt MCV (RBC) [Entitic vol] 91.9 fL Normal 81.0-99.0 [facility] Comment on above: Performed By: #### M G, CMP #### [facility] [address] [place] [address] Dr. Doreen Betancourt MONO # 0.3 103/ul Normal 0.3-0.8 [facility] Comment on above: Performed By: #### M G, CMP #### [facility] [address] [place] [address] Dr. Doreen Betancourt Monocytes/100 WBC (Bld) 9.7 % Normal 1.7-12.0 [facility] Comment on above: Performed By: #### M G, CMP #### [facility] [address] [place] [address] Dr. Doreen Betancourt NEUT # 1.5 103/ul Normal 1.4-6.5 [facility] Comment on above: Performed By: #### M G, CMP #### [facility] [address] [place] [address] Dr. Doreen Betancourt Neutrophils/100 WBC (Bld) 42.4 % Critically low 43.0-75.0 [facility] Comment on above: Performed By: #### M G, CMP #### [facility] [address] [place] [address] Dr. Doreen Betancourt Platelet mean volume (Bld) [Entitic vol] 11.1 fL Normal 9.5-13.5 [facility] Comment on above: Performed By: #### M G, CMP #### [facility] [address] [place] [address] Dr. Doreen Betancourt PLT 101 103/ul Critically low 150-450 [facility] Comment on above: Performed By: #### M G, CMP #### [facility] [address] [place] [address] Dr. Doreen Betancourt RBC 3.93 106/ul Critically low 4.20-5.40 [facility] Comment on above: Performed By: #### M G, CMP #### [facility] [address] [place] [address] Dr. Doreen Betancourt WBC 3.5 103/ul Critically low 4.0-11.0 [facility] Comment on above: Performed By: #### M G, CMP #### [facility] [address] [place] [address] Dr. Doreen Betancourt MAGNESIUMon 08-03-2022 Magnesium [Mass/Vol] 2.0 mg/dL Normal 1.8-2.4 [facility] Comment on above: Performed By: #### C MP, MG #### [facility] [address] [place] [address] Dr. Doreen Betancourt PROF 14(COMP METB)on 023 Albumin [Mass/Vol] 3.6 g/dL Normal 3.4-5.0 [facility] Comment on above: Performed By: #### C MP, MG #### [facility] [address] [place] [address] Dr. Doreen Betancourt Albumin/Globulin [Mass ratio] 1.0 {ratio} Normal [facility] Comment on above: Performed By: #### C MP, MG #### [facility] [address] [place] [address] Dr. Doreen Betancourt ALP [Catalytic activity/Vol] 120 U/L Critically high 46-116 [facility] Comment on above: Performed By: #### C MP, MG #### [facility] [address] [place] [address] Dr. Doreen Betancourt ALT [Catalytic activity/Vol] 80 U/L Critically high 14-59 [facility] Comment on above: Performed By: #### C MP, MG #### [facility] [address] [place] [address] Dr. Doreen Betancourt Anion gap [Moles/Vol] 10.7 mmol/L Normal Th [facility] Comment on above: Performed By: #### C MP, MG #### [facility] [address] [place] [address] Dr. Doreen Betancourt AST [Catalytic activity/Vol] 62 U/L Critically high 15-37 [facility] Comment on above: Performed By: #### C MP, MG #### [facility] [address] [place] [address] Dr. Doreen Betancourt Bilirubin [Mass/Vol] 0.4 mg/dL Normal 0.2-1.0 [facility] Comment on above: Performed By: #### C MP, MG #### [facility] [address] [place] [address] Dr. Doreen Betancourt Calcium [Mass/Vol] 9.6 mg/dL Normal 8.5-10.1 [facility] Comment on above: Performed By: #### C MP, MG #### [facility] [address] [place] [address] Dr. Doreen Betancourt Chloride [Moles/Vol] 106 mmol/L Normal 98-107 [facility] Comment on above: Performed By: #### C MP, MG #### [facility] [address] [place] [address] Dr. Doreen Betancourt CO2 [Moles/Vol] 29.5 mmol/L Normal 21.0-32.0 [facility] Comment on above: Performed By: #### C MP, MG #### [facility] [address] [place] [address] Dr. Doreen Betancourt Creatinine [Mass/Vol] 0.67 mg/dL Normal 0.55-1.02 [facility] Comment on above: Performed By: #### C MP, MG #### [facility] [address] [place] [address] Dr. Doreen Betancourt EGFR-AF MONEGASQUE >60 Normal >=60 [facility] Comment on above: Performed By: #### C MP, MG #### [facility] [address] [place] [address] Dr. Doreen Betancourt EGFR-NON AF MONEGASQUE >60 Normal >=60 [facility] Comment on above: Performed By: #### C MP, MG #### [facility] [address] [place] [address] Dr. Doreen Betancourt Globulin (S) [Mass/Vol] 3.5 g/dL Normal [facility] Comment on above: Performed By: #### C MP, MG #### [facility] [address] [place] [address] Dr. Doreen Betancourt Glucose [Mass/Vol] 128 mg/dL Critically high 74-106 [facility] Comment on above: Performed By: #### C MP, MG #### [facility] [address] [place] [address] Dr. Doreen Betancourt Potassium [Moles/Vol] 4.2 mmol/L Normal 3.5-5.1 [facility] Comment on above: Performed By: #### C MP, MG #### [facility] [address] [place] [address] Dr. Doreen Betancourt Protein [Mass/Vol] 7.1 g/dL Normal 6.4-8.2 [facility] Comment on above: Performed By: #### C MP, MG #### [facility] [address] [place] [address] Dr. Doreen Betancourt Sodium [Moles/Vol] 142 mmol/L Normal 136-145 [facility] Comment on above: Performed By: #### C MP, MG #### [facility] [address] [place] [address] Dr. Doreen Betancourt Urea nitrogen [Mass/Vol] 12.0 mg/dL Normal 7.0-18.0 [facility] Comment on above: Performed By: #### C MP, MG #### [facility] [address] [place] [address] Dr. Doreen Betancourt Urea nitrogen/Creatinine [Mass ratio] 17.9 mg/mg Normal [facility] Comment on above: Performed By: #### C MP, MG #### [facility] [address] [place] [address] Dr. Doreen Betancourt CEAon 07-21-2022 CEA 8.1 ng/mL Critically high 0.0-4.7 [facility] Comment on above: Result Comment: Nons mokers <3.9 Smokers <5.6 . [employer] Electrochemiluminescence Immunoassay (ECLIA) . Values obtained with different assay methods or kits cannot be used interchangeably. Results cannot be interpreted as absolute evidence of the presence or absence of malignant disease. Performed By: #### C VDTBH #### [facility] [address] [place] [address] Dr. Doreen Betancourt CBC AUTO DIFFon 07-20-2022 BASO # 0.0 103/ul Normal 0.0-0.1 [facility] Comment on above: Performed By: #### C VDTBH #### [facility] [address] [place] [address] Dr. Doreen Betancourt Basophils/100 WBC (Bld) 0.9 % Normal 0.2-2.0 [facility] Comment on above: Performed By: #### C VDTBH #### [facility] [address] [place] [address] Dr. Doreen Betancourt EO # 0.0 103/ul Normal 0.0-0.7 [facility] Comment on above: Performed By: #### C VDTBH #### [facility] [address] [place] [address] Dr. Doreen Betancourt Eosinophils/100 WBC (Bld) 0.6 % Critically low 0.9-7.0 [facility] Comment on above: Performed By: #### C VDTBH #### [facility] [address] [place] [address] Dr. Doreen Betancourt Erythrocyte distribution width (RBC) [Ratio] 17.2 % Critically high 11.0-15.0 [facility] Comment on above: Performed By: #### C VDTBH #### [facility] [address] [place] [address] Dr. Doreen Betancourt Hematocrit (Bld) [Volume fraction] 39.1 % Normal 36.0-48.0 [facility] Comment on above: Performed By: #### C VDTBH #### [facility] [address] [place] [address] Dr. Doreen Betancourt Hemoglobin (Bld) [Mass/Vol] 13.0 g/dL Normal 12.0-16.0 [facility] Comment on above: Performed By: #### C VDTBH #### [facility] [address] [place] [address] Dr. Doreen Betancourt IG # 0.00 10e3/ul Normal 0.00-0.03 [facility] Comment on above: Performed By: #### C VDTBH #### [facility] [address] [place] [address] Dr. Doreen Betancourt IG % 0.0 % Normal 0.0-0.5 [facility] Comment on above: Performed By: #### C VDTBH #### [facility] [address] [place] [address] Dr. Doreen Betancourt LYMPH # 2.0 103/ul Normal 1.2-3.8 [facility] Comment on above: Performed By: #### C VDTBH #### [facility] [address] [place] [address] Dr. Doreen Betancourt Lymphocytes/100 WBC (Bld) 42.1 % Normal 20.5-60.0 [facility] Comment on above: Performed By: #### C VDTBH #### [facility] [address] [place] [address] Dr. Doreen Betancourt MANUAL DIFF REQ NO Normal [facility] Comment on above: Performed By: #### C VDTBH #### [facility] [address] [place] [address] Dr. Doreen Betancourt MCH (RBC) [Entitic mass] 31.1 pg Normal 26.7-34.0 [facility] Comment on above: Performed By: #### C VDTBH #### [facility] [address] [place] [address] Dr. Doreen Betancourt MCHC (RBC) [Mass/Vol] 33.2 g/dL Normal 29.9-35.2 [facility] Comment on above: Performed By: #### C VDTBH #### [facility] [address] [place] [address] Dr. Doreen Betancourt MCV (RBC) [Entitic vol] 93.5 fL Normal 81.0-99.0 [facility] Comment on above: Performed By: #### C VDTBH #### [facility] [address] [place] [address] Dr. Doreen Betancourt MONO # 0.6 103/ul Normal 0.3-0.8 [facility] Comment on above: Performed By: #### C VDTBH #### [facility] [address] [place] [address] Dr. Doreen Betancourt Monocytes/100 WBC (Bld) 13.5 % Critically high 1.7-12.0 [facility] Comment on above: Performed By: #### C VDTBH #### [facility] [address] [place] [address] Dr. Doreen Betancourt NEUT # 2.0 103/ul Normal 1.4-6.5 [facility] Comment on above: Performed By: #### C VDTBH #### [facility] [address] [place] [address] Dr. Doreen Betancourt Neutrophils/100 WBC (Bld) 42.9 % Critically low 43.0-75.0 [facility] Comment on above: Performed By: #### C VDTBH #### [facility] [address] [place] [address] Dr. Doreen Betancourt Platelet mean volume (Bld) [Entitic vol] 10.2 fL Normal 9.5-13.5 [facility] Comment on above: Performed By: #### C VDTBH #### [facility] [address] [place] [address] Dr. Doreen Betancourt PLT 143 103/ul Critically low 150-450 [facility] Comment on above: Performed By: #### C VDTBH #### [facility] [address] [place] [address] Dr. Doreen Betancourt RBC 4.18 106/ul Critically low 4.20-5.40 [facility] Comment on above: Performed By: #### C VDTBH #### [facility] [address] [place] [address] Dr. Doreen Betancourt WBC 4.7 103/ul Normal 4.0-11.0 [facility] Comment on above: Performed By: #### C VDTBH #### [facility] [address] [place] [address] Dr. Doreen Betancourt MAGNESIUMon 07-20-2022 Magnesium [Mass/Vol] 2.2 mg/dL Normal 1.8-2.4 [facility] Comment on above: Performed By: #### M G, [facility] #### [facility] [address] [place] [address] Dr. Doreen Betancourt PROF 14(COMP METB)on 023 Albumin [Mass/Vol] 3.8 g/dL Normal 3.4-5.0 [facility] Comment on above: Performed By: #### C BC #### [facility] [address] [place] [address] Dr. Doreen Betancourt Albumin/Globulin [Mass ratio] 1.0 {ratio} Normal [facility] Comment on above: Performed By: #### C BC #### [facility] [address] [place] [address] Dr. Doreen Betancourt ALP [Catalytic activity/Vol] 118 U/L Critically high 46-116 [facility] Comment on above: Performed By: #### C BC #### [facility] [address] [place] [address] Dr. Doreen Betancourt ALT [Catalytic activity/Vol] 57 U/L Normal 14-59 [facility] Comment on above: Performed By: #### C BC #### [facility] [address] [place] [address] Dr. Doreen Betancourt Anion gap [Moles/Vol] 13.4 mmol/L Normal Th [facility] Comment on above: Performed By: #### C BC #### [facility] [address] [address] [address] Doreen Betancourt AST [Catalytic activity/Vol] 40 U/L Critically high 15-37 [facility] Comment on above: Performed By: #### C BC #### [facility] [address] [address] [address] Doreen Betancourt Bilirubin [Mass/Vol] 0.4 mg/dL Normal 0.2-1.0 [facility] Comment on above: Performed By: #### C BC #### [facility] [address] [address] [address] Doreen Betancourt Calcium [Mass/Vol] 9.7 mg/dL Normal 8.5-10.1 [facility] Comment on above: Performed By: #### C BC #### [facility] [address] [place] [address] Dr. Doreen Betancourt Chloride [Moles/Vol] 103 mmol/L Normal 98-107 [facility] Comment on above: Performed By: #### C BC #### [facility] [address] [address] [address] Doreen Betancourt CO2 [Moles/Vol] 29.1 mmol/L Normal 21.0-32.0 [facility] Comment on above: Performed By: #### C BC #### [facility] [address] [place] [address] Dr. Doreen Betancourt Creatinine [Mass/Vol] 0.71 mg/dL Normal 0.55-1.02 [facility] Comment on above: Performed By: #### C BC #### [facility] [address] [place] [address] Dr. Doreen Betancourt EGFR-AF MONEGASQUE >60 Normal >=60 [facility] Comment on above: Performed By: #### C BC #### [facility] [address] [place] [address] Dr. Doreen Betancourt EGFR-NON AF MONEGASQUE >60 Normal >=60 [facility] Comment on above: Performed By: #### C BC #### [facility] [address] [place] [address] Dr. Doreen Betancourt Globulin (S) [Mass/Vol] 3.7 g/dL Normal [facility] Comment on above: Performed By: #### C BC #### [facility] [address] [address] [address] Doreen Betancourt Glucose [Mass/Vol] 106 mg/dL Normal 74-106 [facility] Comment on above: Performed By: #### C BC #### [facility] [address] [address] [address] Doreen Betancourt Potassium [Moles/Vol] 4.5 mmol/L Normal 3.5-5.1 [facility] Comment on above: Performed By: #### C BC #### [facility] [address] [address] [address] Doreen Betancourt Protein [Mass/Vol] 7.5 g/dL Normal 6.4-8.2 [facility] Comment on above: Performed By: #### C BC #### [facility] [address] [address] [address] Doreen Betancourt Sodium [Moles/Vol] 141 mmol/L Normal 136-145 [facility] Comment on above: Performed By: #### C BC #### [facility] [address] [address] [address] Doreen Betancourt Urea nitrogen [Mass/Vol] 15.0 mg/dL Normal 7.0-18.0 [facility] Comment on above: Performed By: #### C BC #### [facility] [address] [address] [address] Doreen Betancourt Urea nitrogen/Creatinine [Mass ratio] 21.1 mg/mg Normal [facility] Comment on above: Performed By: #### C BC #### [facility] [address] [address] [address] Doreen Betancourt Albumin [Mass/volume] in Ser um or PlasmaOrdered By: Isaías Jordan on 07-11-2022 Albumin [Mass/Vol] 3.8 g/dL 3.2-5.5 [facility] Creatinine and Glomerular fi ltration rate.predicted panel (S/P/Bld)Ordered By: Isaías Jordan on 07-11-2022 Creatinine [Mass/Vol] 0.64 mg/dL 0.44-1.03 [facility] Estimated glomerular filtrat ion rate (GFR) non- AmericanOrdered By: Isaías Jordan on 07-11-2022 GFR/1.73 sq M.predicted among non-blacks MDRD (S/P/Bld) [Vol rate/Area] > 60 mL/Min [facility] GFR/1.73 sq M.predicted among non-blacks MDRD (S/P/Bld) [Vol rate/Area] Estimated glomerular filtration rate (GFR) non- [facility] Globulin Calc (S) [Mass/Vol] Ordered By: Isaías Jordan on 07-11-2022 Globulin (S) [Mass/Vol] 2.8 g/dL [facility] Laboratory - Chemistry and C hemistry - challengeOrdered By: Isaías Jordan on 07-11-2022 Magnesium [Mass/Vol] 2.2 mg/dL 1.6-2.6 [facility] No Panel InformationOrdered By: Isaías Jordan on 07-11-2022 Estimated GFR () > 60 mL/Min [facility] Comment on above: GFR estimated refere nce range: According to KDOQI guidelines, <60 ml/min/1.73m2 is sufficient to diagnose a patient with chronic kidney disease. Pharmacy Creatinine Clearance (Chem 97.34 [facility] Protein [Mass/volume] in Ser um or PlasmaOrdered By: Isaías Jordan on 07-11-2022 Protein [Mass/Vol] 6.6 g/dL 6.1-7.9 [facility] Serum or plasma alanine villalpando otransferase measurement without P-5'-P (enzymatic activiOrdered By: Isaías Jordan on 07-11-2022 ALT No additional P-5'-P [Catalytic activity/Vol] 71 U/L 10-60 [facility] Serum or plasma albumin/glob ulin mass ratioOrdered By: Isaías Jordan on 07-11-2022 Albumin/Globulin [Mass ratio] 1.4 {ratio} [facility] Serum or plasma alkaline joselito sphatase measurement (enzymatic activity/volume)Ordered By: Isaías Jordan on 07-11-2022 ALP [Catalytic activity/Vol] 72 U/L 32-92 [facility] Serum or plasma anion gap de terminationOrdered By: Isaías Jordan on 07-11-2022 Anion gap [Moles/Vol] 9.7 mmol/L 6.0-15.0 [facility] Serum or plasma aspartate am inotransferase measurement (enzymatic activity/volume)Ordered By: Isaías Jordan on 07-11-2022 AST [Catalytic activity/Vol] 56 U/L 10-42 [facility] Serum or plasma calcium idalmis urement (mass/volume)Ordered By: Isaías Jordan on 07-11-2022 Calcium [Mass/Vol] 9.1 mg/dL 8.2-10.2 [facility] Serum or plasma chloride jose surement (moles/volume)Ordered By: Isaías Jordan on 07-11-2022 Chloride [Moles/Vol] 103 mmol/L 95-114 [facility] Serum or plasma glucose idalmis urement (mass/volume)Ordered By: Isaías Jordan on 07-11-2022 Glucose [Mass/Vol] 81 mg/dL 70-100 [facility] Comment on above: ADA recommended refe rence rangeRandom Glucose Reference Range is dependent on time and content of last meal. Glucose of more than 200 mg/dL in a nonstressed, ambulatory subject supports the diagnosis of Diabetes Mellitus. Serum or plasma potassium me asurement (moles/volume)Ordered By: Isaías Jordan on 07-11-2022 Potassium [Moles/Vol] 4.1 mmol/L 3.5-5.1 [facility] Serum or plasma sodium measu rement (moles/volume)Ordered By: Isaías Jordan on 07-11-2022 Sodium [Moles/Vol] 134 mmol/L 136-146 [facility] Serum or plasma total biliru bin measurement (mass/volume)Ordered By: Isaías Jordan on 07-11-2022 Bilirubin [Mass/Vol] 0.8 mg/dL 0.3-1.2 [facility] Serum or plasma total carbon dioxide measurement (moles/volume)Ordered By: Isaías Jordan on 07-11-2022 CO2 [Moles/Vol] 25.4 mmol/L 22.0-30.0 [facility] Serum or plasma urea nitroge n measurement (mass/volume)Ordered By: Isaías Jordan on 07-11-2022 Urea nitrogen [Mass/Vol] 14 mg/dL 9 [facility] Albumin [Mass/volume] in Ser um or PlasmaOrdered By: Isaías Jordan on 07-06-2022 Albumin [Mass/Vol] 4.2 g/dL 3.2-5.5 [facility] CBC AUTO DIFFon 07-06-2022 BASO # 0.0 103/ul Normal 0.0-0.1 [facility] Comment on above: Performed By: #### M G, CMP #### [facility] [address] [address] [address] Doreen Betancourt Basophils/100 WBC (Bld) 0.7 % Normal 0.2-2.0 [facility] Comment on above: Performed By: #### M G, CMP #### [facility] [address] [address] [address] Doreen Betancourt EO # 0.1 103/ul Normal 0.0-0.7 [facility] Comment on above: Performed By: #### Gay G, CMP #### [facility] [address] [address] [address] Doreen Betancourt Eosinophils/100 WBC (Bld) 1.1 % Normal 0.9-7.0 [facility] Comment on above: Performed By: #### M G, CMP #### [facility] [address] [address] [address] Doreen Betancourt Erythrocyte distribution width (RBC) [Ratio] 16.9 % Critically high 11.0-15.0 [facility] Comment on above: Performed By: #### M G, CMP #### [facility] [address] [address] [address] Doreen Betancourt Hematocrit (Bld) [Volume fraction] 38.9 % Normal 36.0-48.0 [facility] Comment on above: Performed By: #### M G, CMP #### [facility] [address] [place] [address] Dr. Doreen Betancourt Hemoglobin (Bld) [Mass/Vol] 14.2 g/dL Normal 12.0-16.0 [facility] Comment on above: Performed By: #### M G, CMP #### [facility] [address] [place] [address] Dr. Doreen Betancourt IG # 0.01 10e3/ul Normal 0.00-0.03 [facility] Comment on above: Performed By: #### M G, CMP #### [facility] [address] [place] [address] Dr. Doreen Betancourt IG % 0.2 % Normal 0.0-0.5 [facility] Comment on above: Performed By: #### M G, CMP #### [facility] [address] [place] [address] Dr. Doreen Betancourt LYMPH # 2.0 103/ul Normal 1.2-3.8 [facility] Comment on above: Performed By: #### M G, CMP #### [facility] [address] [place] [address] Dr. Doreen Betancourt Lymphocytes/100 WBC (Bld) 43.2 % Normal 20.5-60.0 [facility] Comment on above: Performed By: #### M G, CMP #### [facility] [address] [place] [address] Dr. Doreen Betancourt MANUAL DIFF REQ NO Normal [facility] Comment on above: Performed By: #### M G, CMP #### [facility] [address] [place] [address] Dr. Doreen Betancourt MCH (RBC) [Entitic mass] 34.5 pg Critically high 26.7-34.0 [facility] Comment on above: Performed By: #### M G, CMP #### [facility] [address] [place] [address] Dr. Doreen Betancourt MCHC (RBC) [Mass/Vol] 36.5 g/dL Critically high 29.9-35.2 [facility] Comment on above: Performed By: #### M G, CMP #### [facility] [address] [place] [address] Dr. Doreen Betancourt MCV (RBC) [Entitic vol] 94.6 fL Normal 81.0-99.0 [facility] Comment on above: Performed By: #### M G, CMP #### [facility] [address] [place] [address] Dr. Doreen Betancourt MONO # 0.4 103/ul Normal 0.3-0.8 [facility] Comment on above: Performed By: #### M G, CMP #### [facility] [address] [place] [address] Dr. Doreen Betancourt Monocytes/100 WBC (Bld) 9.6 % Normal 1.7-12.0 [facility] Comment on above: Performed By: #### M G, CMP #### [facility] [address] [place] [address] Dr. Doreen Betancourt NEUT # 2.1 103/ul Normal 1.4-6.5 [facility] Comment on above: Performed By: #### M G, CMP #### [facility] [address] [place] [address] Dr. Doreen Betancourt Neutrophils/100 WBC (Bld) 45.2 % Normal 43.0-75.0 [facility] Comment on above: Performed By: #### M G, CMP #### [facility] [address] [place] [address] Dr. Doreen Betancourt Platelet mean volume (Bld) [Entitic vol] 9.8 fL Normal 9.5-13.5 [facility] Comment on above: Performed By: #### M G, CMP #### [facility] [address] [place] [address] Dr. Doreen Betancourt PLT 155 103/ul Normal 150-450 [facility] Comment on above: Performed By: #### M G, CMP #### [facility] [address] [place] [address] Dr. Doreen Betancourt RBC 4.11 106/ul Critically low 4.20-5.40 [facility] Comment on above: Performed By: #### M G, CMP #### [facility] [address] [address] [address] Doreen Betancourt WBC 4.6 103/ul Normal 4.0-11.0 [facility] Comment on above: Performed By: #### M G, CMP #### [facility] [address] [address] [address] Doreen Betancourt Creatinine and Glomerular fi ltration rate.predicted panel (S/P/Bld)Ordered By: Isaías Jordan on 07-06-2022 Creatinine [Mass/Vol] 0.43 mg/dL 0.44-1.03 [facility] Estimated glomerular filtrat ion rate (GFR) non- AmericanOrdered By: Isaías Jordan on 07-06-2022 GFR/1.73 sq M.predicted among non-blacks MDRD (S/P/Bld) [Vol rate/Area] > 60 mL/Min [facility] Globulin Calc (S) [Mass/Vol] Ordered By: Isaías Jordan on 07-06-2022 Globulin (S) [Mass/Vol] 2.6 g/dL [facility] Laboratory - Chemistry and C hemistry - challengeOrdered By: Isaías Jordan on 07-06-2022 Magnesium [Mass/Vol] 2.8 mg/dL 1.6-2.6 [facility] MAGNESIUMon 07-06-2022 Magnesium [Mass/Vol] 2.0 mg/dL Normal 1.8-2.4 [facility] Comment on above: Performed By: #### C BC #### [facility] [address] [address] [address] Doreen Betancourt No Panel InformationOrdered By: Isaías Jordan on 07-06-2022 Estimated GFR () > 60 mL/Min [facility] Comment on above: GFR estimated refere nce range: According to KDOQI guidelines, <60 ml/min/1.73m2 is sufficient to diagnose a patient with chronic kidney disease. Pharmacy Creatinine Clearance (Chem N/A [facility] PROF 14(COMP METB)on 022 Albumin [Mass/Vol] 4.2 g/dL Normal 3.4-5.0 [facility] Comment on above: Result Comment: [place] [facility] Performed By: #### C BC #### [facility] [address] [place] [address] Dr. Doreen Betancourt Albumin/Globulin [Mass ratio] 1.6 {ratio} Normal [facility] Comment on above: Performed By: #### C BC #### [facility] [address] [place] [address] Dr. Doreen Betancourt ALP [Catalytic activity/Vol] 102 U/L Normal 46-116 [facility] Comment on above: Result Comment: [place] [facility] Performed By: #### C BC #### [facility] [address] [place] [address] Dr. Doreen Betancourt ALT [Catalytic activity/Vol] 38 U/L Normal 14-59 [facility] Comment on above: Result Comment: [place] [facility] Performed By: #### C BC #### [facility] [address] [place] [address] Dr. Doreen Betancourt Anion gap [Moles/Vol] 11.9 mmol/L Normal [facility] Comment on above: Performed By: #### C BC #### [facility] [address] [place] [address] Dr. Doreen Betancourt AST [Catalytic activity/Vol] 49 U/L Critically high 15-37 [facility] Comment on above: Result Comment: [place] [facility] Performed By: #### C BC #### [facility] [address] [place] [address] Dr. Doreen Betancourt Bilirubin [Mass/Vol] 0.7 mg/dL Normal 0.2-1.0 [facility] Comment on above: Result Comment: [place] [facility] [place] Performed By: #### C BC #### [facility] [address] [place] [address] Dr. Doreen Betancourt Calcium [Mass/Vol] 9.5 mg/dL Normal 8.5-10.1 [facility] Comment on above: Result Comment: [place] [facility] [place] Performed By: #### C BC #### [facility] [address] [place] [address] Dr. Doreen Betancourt Chloride [Moles/Vol] 101 mmol/L Normal 98-107 [facility] Comment on above: Result Comment: [place] [facility] [place] Performed By: #### C BC #### [facility] [address] [place] [address] Dr. Doreen Betancourt CO2 [Moles/Vol] 25.4 mmol/L Normal 21.0-32.0 [facility] Comment on above: Result Comment: [place] [facility] [place] Performed By: #### C BC #### [facility] [address] [place] [address] Dr. Doreen Betancourt Creatinine [Mass/Vol] 0.43 mg/dL Critically low 0.55-1.02 [facility] Comment on above: Result Comment: [place] [facility] [place] Performed By: #### C BC #### [facility] [address] [place] [address] Dr. Doreen Betancourt EGFR-AF MONEGASQUE >60 Normal >=60 [facility] Comment on above: Performed By: #### C BC #### [facility] [address] [place] [address] Dr. Doreen Betancourt EGFR-NON AF MONEGASQUE >60 Normal >=60 [facility] Comment on above: Performed By: #### C BC #### [facility] [address] [place] [address] Dr. Doreen Betancourt Globulin (S) [Mass/Vol] 2.6 g/dL Normal [facility] Comment on above: Performed By: #### C BC #### [facility] [address] [place] [address] Dr. Doreen Betancourt Glucose [Mass/Vol] 102 mg/dL Normal 74-106 [facility] Comment on above: Result Comment: [place] [facility] [place] Performed By: #### C BC #### [facility] [address] [address] [address] Doreen Betancourt Potassium [Moles/Vol] 5.3 mmol/L Critically high 3.5-5.1 [facility] Comment on above: Result Comment: [place] [facility] [place] Performed By: #### C BC #### [facility] [address] [address] [address] Doreen Betancourt Protein [Mass/Vol] 6.8 g/dL Normal 6.4-8.2 [facility] Comment on above: Result Comment: [place] [facility] [place] Performed By: #### C BC #### [facility] [address] [place] [address] Dr. Doreen Betancourt Sodium [Moles/Vol] 133 mmol/L Critically low 136-145 [facility] Comment on above: Result Comment: [place] [facility] [place] Performed By: #### C BC #### [facility] [address] [address] [address] Doreen Betancourt Urea nitrogen [Mass/Vol] 18.0 mg/dL Normal 7.0-18.0 [facility] Comment on above: Result Comment: [place] [facility] [place] Performed By: #### C BC #### [facility] [address] [address] [address] Doreen Betancourt Urea nitrogen/Creatinine [Mass ratio] 41.6 mg/mg Normal [facility] Comment on above: Performed By: #### C BC #### [facility] [address] [address] [address] Doreen Betancourt Protein [Mass/volume] in Ser um or PlasmaOrdered By: Isaías Jordan on 07-06-2022 Protein [Mass/Vol] 6.8 g/dL 6.1-7.9 [facility] Serum or plasma alanine villalpando otransferase measurement without P-5'-P (enzymatic activiOrdered By: Isaías Jordan on 07-06-2022 ALT No additional P-5'-P [Catalytic activity/Vol] 38 U/L 10-60 [facility] Serum or plasma albumin/glob ulin mass ratioOrdered By: Isaías Jordan on 07-06-2022 Albumin/Globulin [Mass ratio] 1.6 {ratio} [facility] Serum or plasma alkaline joselito sphatase measurement (enzymatic activity/volume)Ordered By: Isaías Jordan on 07-06-2022 ALP [Catalytic activity/Vol] 102 U/L 32-92 [facility] Serum or plasma anion gap de terminationOrdered By: Isaías Jordan on 07-06-2022 Anion gap [Moles/Vol] 11.9 mmol/L 6.0-15.[address] [facility] Serum or plasma aspartate am inotransferase measurement (enzymatic activity/volume)Ordered By: Isaías Jordan on 07-06-2022 AST [Catalytic activity/Vol] 49 U/L 10-42 [facility] Serum or plasma calcium idalmis urement (mass/volume)Ordered By: Isaías Jordan on 07-06-2022 Calcium [Mass/Vol] 9.5 mg/dL 8.2-10.2 [facility] Serum or plasma chloride jose surement (moles/volume)Ordered By: Isaías Jordan on 07-06-2022 Chloride [Moles/Vol] 101 mmol/L 95-114 [facility] Serum or plasma glucose idalmis urement (mass/volume)Ordered By: Isaías Jordan on 07-06-2022 Glucose [Mass/Vol] 102 mg/dL 70-100 [facility] Comment on above: ADA recommended refe rence rangeRandom Glucose Reference Range is dependent on time and content of last meal. Glucose of more than 200 mg/dL in a nonstressed, ambulatory subject supports the diagnosis of Diabetes Mellitus. Serum or plasma potassium me asurement (moles/volume)Ordered By: Isaías Jordan on 07-06-2022 Potassium [Moles/Vol] 5.3 mmol/L 3.5-5.1 [facility] Serum or plasma sodium measu rement (moles/volume)Ordered By: Isaías Jordan on 07-06-2022 Sodium [Moles/Vol] 133 mmol/L 136-146 [facility] Serum or plasma total biliru bin measurement (mass/volume)Ordered By: Isaías Jordan on 07-06-2022 Bilirubin [Mass/Vol] 0.7 mg/dL 0.3-1.2 [facility] Serum or plasma total carbon dioxide measurement (moles/volume)Ordered By: Isaías Jordan on 07-06-2022 CO2 [Moles/Vol] 25.4 mmol/L 22.0-30.0 [facility] Serum or plasma urea nitroge n measurement (mass/volume)Ordered By: sIaías Jordan on 07-06-2022 Urea nitrogen [Mass/Vol] 18 mg/dL 03-29 [facility] CBC AUTO DIFFon 06-22-2022 BASO # 0.0 103/ul Normal 0.0-0.1 [facility] Comment on above: Performed By: #### C BC #### [facility] [address] [place] [address] Dr. Doreen Betancourt Basophils/100 WBC (Bld) 0.5 % Normal 0.2-2.0 [facility] Comment on above: Performed By: #### C BC #### [facility] [address] [place] [address] Dr. Doreen Betancourt EO # 0.1 103/ul Normal 0.0-0.7 [facility] Comment on above: Performed By: #### C BC #### [facility] [address] [address] [address] Doreen Betancourt Eosinophils/100 WBC (Bld) 1.3 % Normal 0.9-7.0 [facility] Comment on above: Performed By: #### C BC #### [facility] [address] [address] [address] Doreen Betancourt Erythrocyte distribution width (RBC) [Ratio] 15.3 % Critically high 11.0-15.0 [facility] Comment on above: Performed By: #### C BC #### [facility] [address] [place] [address] Dr. Doreen Betancourt Hematocrit (Bld) [Volume fraction] 38.7 % Normal 36.0-48.0 [facility] Comment on above: Performed By: #### C BC #### [facility] [address] [place] [address] Dr. Doreen Betancourt Hemoglobin (Bld) [Mass/Vol] 12.5 g/dL Normal 12.0-16.0 [facility] Comment on above: Performed By: #### C BC #### [facility] [address] [place] [address] Dr. Doreen Betancourt IG # 0.01 10e3/ul Normal 0.00-0.03 [facility] Comment on above: Performed By: #### C BC #### [facility] [address] [place] [address] Dr. Doreen Betancourt IG % 0.3 % Normal 0.0-0.5 [facility] Comment on above: Performed By: #### C BC #### [facility] [address] [place] [address] Dr. Doreen Betancourt LYMPH # 1.8 103/ul Normal 1.2-3.8 [facility] Comment on above: Performed By: #### C BC #### [facility] [address] [place] [address] Dr. Doreen Betancourt Lymphocytes/100 WBC (Bld) 46.0 % Normal 20.5-60.0 [facility] Comment on above: Performed By: #### C BC #### [facility] [address] [place] [address] Dr. Doreen Betancourt MANUAL DIFF REQ NO Normal [facility] Comment on above: Performed By: #### C BC #### [facility] [address] [place] [address] Dr. Doreen Betancourt MCH (RBC) [Entitic mass] 30.0 pg Normal 26.7-34.0 [facility] Comment on above: Performed By: #### C BC #### [facility] [address] [place] [address] Dr. Doreen Betancourt MCHC (RBC) [Mass/Vol] 32.3 g/dL Normal 29.9-35.2 [facility] Comment on above: Performed By: #### C BC #### [facility] [address] [address] [address] Doreen Betancourt MCV (RBC) [Entitic vol] 93.0 fL Normal 81.0-99.0 [facility] Comment on above: Performed By: #### C BC #### [facility] [address] [address] [address] Doreen Betancourt MONO # 0.4 103/ul Normal 0.3-0.8 [facility] Comment on above: Performed By: #### C BC #### [facility] [address] [address] [address] Doreen Betancourt Monocytes/100 WBC (Bld) 9.5 % Normal 1.7-12.0 [facility] Comment on above: Performed By: #### C BC #### [facility] [address] [address] [address] Doreen Betancourt NEUT # 1.7 103/ul Normal 1.4-6.5 [facility] Comment on above: Performed By: #### C BC #### [facility] [address] [address] [address] Doreen Betancourt Neutrophils/100 WBC (Bld) 42.4 % Critically low 43.0-75.0 [facility] Comment on above: Performed By: #### C BC #### [facility] [address] [address] [address] Doreen Betancourt Platelet mean volume (Bld) [Entitic vol] 9.9 fL Normal 9.5-13.5 [facility] Comment on above: Performed By: #### C BC #### [facility] [address] [address] [address] Doreen Betancourt PLT 178 103/ul Normal 150-450 [facility] Comment on above: Performed By: #### C BC #### [facility] [address] [address] [address] Doreen Betancourt RBC 4.16 106/ul Critically low 4.20-5.40 [facility] Comment on above: Performed By: #### C BC #### [facility] [address] [address] [address] Doreen Betancourt WBC 4.0 103/ul Normal 4.0-11.0 [facility] Comment on above: Performed By: #### C BC #### [facility] [address] [place] [address] Dr. Doreen Betancourt MAGNESIUMon 06-22-2022 Magnesium [Mass/Vol] 1.9 mg/dL Normal 1.8-2.4 [facility] Comment on above: Performed By: #### M G, CMP #### [facility] [address] [place] [address] Dr. Doreen Betancourt PROF 14(COMP METB)on 022 Albumin [Mass/Vol] 3.7 g/dL Normal 3.4-5.0 [facility] Comment on above: Performed By: #### M G, CMP #### [facility] [address] [place] [address] Dr. Doreen Betancourt Albumin/Globulin [Mass ratio] 1.1 {ratio} Normal [facility] Comment on above: Performed By: #### M G, CMP #### [facility] [address] [place] [address] Dr. Doreen Betancourt ALP [Catalytic activity/Vol] 125 U/L Critically high 46-116 [facility] Comment on above: Performed By: #### M G, CMP #### [facility] [address] [place] [address] Dr. Doreen Betancourt ALT [Catalytic activity/Vol] 16 U/L Normal 14-59 [facility] Comment on above: Performed By: #### M G, CMP #### [facility] [address] [place] [address] Dr. Doreen Betancourt Anion gap [Moles/Vol] 8.8 mmol/L Normal [facility] Comment on above: Performed By: #### M G, CMP #### [facility] [address] [place] [address] Dr. Doreen Betancourt AST [Catalytic activity/Vol] 5 U/L Critically low 15-37 [facility] Comment on above: Performed By: #### M G, CMP #### [facility] [address] [address] [address] Doreen Betancourt Bilirubin [Mass/Vol] 0.3 mg/dL Normal 0.2-1.0 [facility] Comment on above: Performed By: #### M G, CMP #### [facility] [address] [address] [address] Doreen Betancourt Calcium [Mass/Vol] 8.8 mg/dL Normal 8.5-10.1 [facility] Comment on above: Performed By: #### M G, CMP #### [facility] [address] [address] [address] Doreen Betancourt Chloride [Moles/Vol] 104 mmol/L Normal 98-107 [facility] Comment on above: Performed By: #### M G, CMP #### [facility] [address] [place] [address] Dr. Doreen Betancourt CO2 [Moles/Vol] 29.5 mmol/L Normal 21.0-32.0 [facility] Comment on above: Performed By: #### M G, CMP #### [facility] [address] [place] [address] Dr. Doreen Betancourt Creatinine [Mass/Vol] 0.75 mg/dL Normal 0.55-1.02 [facility] Comment on above: Performed By: #### M G, CMP #### [facility] [address] [place] [address] Dr. Doreen Betancourt EGFR-AF MONEGASQUE >60 Normal >=60 [facility] Comment on above: Performed By: #### M G, CMP #### [facility] [address] [place] [address] Dr. Doreen Betancourt EGFR-NON AF MONEGASQUE >60 Normal >=60 [facility] Comment on above: Performed By: #### M G, CMP #### [facility] [address] [place] [address] Dr. Doreen Betancourt Globulin (S) [Mass/Vol] 3.3 g/dL Normal [facility] Comment on above: Performed By: #### M G, CMP #### [facility] [address] [address] [address] Doreen Betancourt Glucose [Mass/Vol] 110 mg/dL Critically high 74-106 [facility] Comment on above: Performed By: #### M G, CMP #### [facility] [address] [address] [address] Doreen Betancourt Potassium [Moles/Vol] 4.3 mmol/L Normal 3.5-5.1 [facility] Comment on above: Performed By: #### M G, CMP #### [facility] [address] [address] [address] Doreen Betancourt Protein [Mass/Vol] 7.0 g/dL Normal 6.4-8.2 [facility] Comment on above: Performed By: #### M G, CMP #### [facility] [address] [place] [address] Dr. Doreen Betancourt Sodium [Moles/Vol] 138 mmol/L Normal 136-145 [facility] Comment on above: Performed By: #### M G, CMP #### [facility] [address] [place] [address] Dr. Doreen Betancourt Urea nitrogen [Mass/Vol] 11.0 mg/dL Normal 7.0-18.0 [facility] Comment on above: Performed By: #### M G, CMP #### [facility] [address] [place] [address] Dr. Doreen Betancourt Urea nitrogen/Creatinine [Mass ratio] 14.7 mg/mg Normal [facility] Comment on above: Performed By: #### M G, CMP #### [facility] [address] [place] [address] Dr. Doreen Betancourt CBC AUTO DIFFon 06-08-2022 BASO # 0.0 103/ul Normal 0.0-0.1 [facility] Comment on above: Performed By: #### M G, CMP #### [facility] [address] [address] [address] Doreen Betancourt Basophils/100 WBC (Bld) 0.8 % Normal 0.2-2.0 [facility] Comment on above: Performed By: #### M G, CMP #### [facility] [address] [place] [address] Dr. Doreen Betancourt EO # 0.1 103/ul Normal 0.0-0.7 [facility] Comment on above: Performed By: #### M G, CMP #### [facility] [address] [place] [address] Dr. Doreen Betancourt Eosinophils/100 WBC (Bld) 2.3 % Normal 0.9-7.0 [facility] Comment on above: Performed By: #### M G, CMP #### [facility] [address] [place] [address] Dr. Doreen Betancourt Erythrocyte distribution width (RBC) [Ratio] 14.5 % Normal 11.0-15.0 [facility] Comment on above: Performed By: #### M G, CMP #### [facility] [address] [place] [address] Dr. Doreen Betancourt Hematocrit (Bld) [Volume fraction] 38.8 % Normal 36.0-48.0 [facility] Comment on above: Performed By: #### M G, CMP #### [facility] [address] [place] [address] Dr. Doreen Betancourt Hemoglobin (Bld) [Mass/Vol] 12.6 g/dL Normal 12.0-16.0 [facility] Comment on above: Performed By: #### M G, CMP #### [facility] [address] [place] [address] Dr. Doreen Betancourt IG # 0.00 10e3/ul Normal 0.00-0.03 [facility] Comment on above: Performed By: #### M G, CMP #### [facility] [address] [place] [address] Dr. Doreen Betancourt IG % 0.0 % Normal 0.0-0.5 [facility] Comment on above: Performed By: #### M G, CMP #### [facility] [address] [place] [address] Dr. Doreen Betancourt LYMPH # 1.9 103/ul Normal 1.2-3.8 [facility] Comment on above: Performed By: #### M G, CMP #### [facility] [address] [place] [address] Dr. Doreen Betancourt Lymphocytes/100 WBC (Bld) 46.7 % Normal 20.5-60.0 [facility] Comment on above: Performed By: #### M G, CMP #### [facility] [address] [place] [address] Dr. Doreen Betancourt MANUAL DIFF REQ NO Normal [facility] Comment on above: Performed By: #### M G, CMP #### [facility] [address] [place] [address] Dr. Doreen Betancourt MCH (RBC) [Entitic mass] 30.3 pg Normal 26.7-34.0 [facility] Comment on above: Performed By: #### M G, CMP #### [facility] [address] [place] [address] Dr. Doreen Betancourt MCHC (RBC) [Mass/Vol] 32.5 g/dL Normal 29.9-35.2 [facility] Comment on above: Performed By: #### M G, CMP #### [facility] [address] [place] [address] Dr. Doreen Betancourt MCV (RBC) [Entitic vol] 93.3 fL Normal 81.0-99.0 [facility] Comment on above: Performed By: #### M G, CMP #### [facility] [address] [place] [address] Dr. Doreen Betancourt MONO # 0.4 103/ul Normal 0.3-0.8 [facility] Comment on above: Performed By: #### M G, CMP #### [facility] [address] [place] [address] Dr. Doreen Betancourt Monocytes/100 WBC (Bld) 11.1 % Normal 1.7-12.0 [facility] Comment on above: Performed By: #### M G, CMP #### [facility] [address] [place] [address] Dr. Doreen Betancourt NEUT # 1.6 103/ul Normal 1.4-6.5 [facility] Comment on above: Performed By: #### Gay G, CMP #### [facility] [address] [place] [address] Dr. Doreen Betancourt Neutrophils/100 WBC (Bld) 39.1 % Critically low 43.0-75.0 [facility] Comment on above: Performed By: #### Gay Martino, CMP #### [facility] [address] [place] [address] Dr. Doreen Betancourt Platelet mean volume (Bld) [Entitic vol] 9.9 fL Normal 9.5-13.5 [facility] Comment on above: Performed By: #### Gay Martino, CMP #### [facility] [address] [place] [address] Dr. Doreen Betancourt PLT 220 103/ul Normal 150-450 [facility] Comment on above: Performed By: #### Gay Martino, CMP #### [facility] [address] [place] [address] Dr. Doreen Betancourt RBC 4.16 106/ul Critically low 4.20-5.40 [facility] Comment on above: Performed By: #### Gay Martino, CMP #### [facility] [address] [place] [address] Dr. Doreen Betancourt WBC 4.0 103/ul Normal 4.0-11.0 [facility] Comment on above: Performed By: #### Gay Martino, CMP #### [facility] [address] [place] [address] Dr. Doreen Betancourt MAGNESIUMon 06-08-2022 Magnesium [Mass/Vol] 2.2 mg/dL Normal 1.8-2.4 [facility] Comment on above: Performed By: #### C VDTBH #### [facility] [address] [place] [address] Dr. Doreen Betancourt PROF 14(COMP METB)on 022 Albumin [Mass/Vol] 3.9 g/dL Normal 3.4-5.0 [facility] Comment on above: Performed By: #### C VDTBH #### [facility] [address] [place] [address] Dr. Doreen Betancourt Albumin/Globulin [Mass ratio] 1.1 {ratio} Normal [facility] Comment on above: Performed By: #### C VDTBH #### [facility] [address] [place] [address] Dr. Doreen Betancourt ALP [Catalytic activity/Vol] 100 U/L Normal 46-116 [facility] Comment on above: Performed By: #### C VDTBH #### [facility] [address] [place] [address] Dr. Doreen Betancourt ALT [Catalytic activity/Vol] 19 U/L Normal 14-59 [facility] Comment on above: Performed By: #### C VDTBH #### [facility] [address] [place] [address] Dr. Doreen Betancourt Anion gap [Moles/Vol] 6.9 mmol/L Normal [facility] Comment on above: Performed By: #### C VDTBH #### [facility] [address] [place] [address] Dr. Doreen Betancourt AST [Catalytic activity/Vol] 14 U/L Critically low 15-37 [facility] Comment on above: Performed By: #### C VDTBH #### [facility] [address] [place] [address] Dr. Doreen Betancourt Bilirubin [Mass/Vol] 0.3 mg/dL Normal 0.2-1.0 [facility] Comment on above: Performed By: #### C VDTBH #### [facility] [address] [place] [address] Dr. Doreen Betancourt Calcium [Mass/Vol] 9.6 mg/dL Normal 8.5-10.1 [facility] Comment on above: Performed By: #### C VDTBH #### [facility] [address] [place] [address] Dr. Doreen Betancourt Chloride [Moles/Vol] 105 mmol/L Normal 98-107 [facility] Comment on above: Performed By: #### C VDTBH #### [facility] [address] [place], [place] [id number] Dr. Doreen Betancourt CO2 [Moles/Vol] 32.2 mmol/L Critically high 21.0-32.0 [facility] Comment on above: Performed By: #### C VDTBH #### [facility] [address] [place] [address] Dr. Doreen Betancourt Creatinine [Mass/Vol] 0.69 mg/dL Normal 0.55-1.02 [facility] Comment on above: Performed By: #### C VDTBH #### [facility] [address] [place] [address] Dr. Doreen Betancourt EGFR-AF MONEGASQUE >60 Normal >=60 [facility] Comment on above: Performed By: #### C VDTBH #### [facility] [address] [place] [address] Dr. Doreen Betancourt EGFR-NON AF MONEGASQUE >60 Normal >=60 [facility] Comment on above: Performed By: #### C VDTBH #### [facility] [address] [place] [address] Dr. Doreen Betancourt Globulin (S) [Mass/Vol] 3.6 g/dL Normal [facility] Comment on above: Performed By: #### C VDTBH #### [facility] [address] [place] [address] Dr. Doreen Betancourt Glucose [Mass/Vol] 103 mg/dL Normal 74-106 [facility] Comment on above: Performed By: #### C VDTBH #### [facility] [address] [place] [address] Dr. Doreen Betancourt Potassium [Moles/Vol] 5.1 mmol/L Normal 3.5-5.1 [facility] Comment on above: Performed By: #### C VDTBH #### [facility] [address] [place] [address] Dr. Doreen Betancourt Protein [Mass/Vol] 7.5 g/dL Normal 6.4-8.2 [facility] Comment on above: Performed By: #### C VDTBH #### [facility] [address] [place] [address] Dr. Doreen Betancourt Sodium [Moles/Vol] 139 mmol/L Normal 136-145 [facility] Comment on above: Performed By: #### C VDTBH #### [facility] [address] [place] [address] Dr. Doreen Betancourt Urea nitrogen [Mass/Vol] 13.0 mg/dL Normal 7.0-18.0 [facility] Comment on above: Performed By: #### C VDTBH #### [facility] [address] [place] [address] Dr. Doreen Betancourt Urea nitrogen/Creatinine [Mass ratio] 18.8 mg/mg Normal [facility] Comment on above: Performed By: #### C VDTBH #### [facility] [address] [place] [address] Dr. Doreen Betancourt CBC AUTO DIFFon 06-01-2022 BASO # 0.0 103/ul Normal 0.0-0.1 [facility] Comment on above: Performed By: #### C BC #### [facility] [address] [place] [address] Dr. Doreen Betancourt Basophils/100 WBC (Bld) 0.7 % Normal 0.2-2.0 [facility] Comment on above: Performed By: #### C BC #### [facility] [address] [place] [address] Dr. Doreen Betancourt EO # 0.1 103/ul Normal 0.0-0.7 [facility] Comment on above: Performed By: #### C BC #### [facility] [address] [place] [address] Dr. Doreen Betancourt Eosinophils/100 WBC (Bld) 2.0 % Normal 0.9-7.0 [facility] Comment on above: Performed By: #### C BC #### [facility] [address] [place] [address] Dr. Doreen Betancourt Erythrocyte distribution width (RBC) [Ratio] 13.9 % Normal 11.0-15.0 [facility] Comment on above: Performed By: #### C BC #### [facility] [address] [place] [address] Dr. Doreen Betancourt Hematocrit (Bld) [Volume fraction] 41.2 % Normal 36.0-48.0 [facility] Comment on above: Performed By: #### C BC #### [facility] [address] [place] [address] Dr. Doreen Betancourt Hemoglobin (Bld) [Mass/Vol] 13.2 g/dL Normal 12.0-16.0 [facility] Comment on above: Performed By: #### C BC #### [facility] [address] [place] [address] Dr. Doreen Betancourt IG # 0.01 10e3/ul Normal 0.00-0.03 [facility] Comment on above: Performed By: #### C BC #### [facility] [address] [place] [address] Dr. Doreen Betancourt IG % 0.2 % Normal 0.0-0.5 [facility] Comment on above: Performed By: #### C BC #### [facility] [address] [place] [address] Dr. Doreen Betancourt LYMPH # 1.9 103/ul Normal 1.2-3.8 [facility] Comment on above: Performed By: #### C BC #### [facility] [address] [place] [address] Dr. Doreen Betancourt Lymphocytes/100 WBC (Bld) 41.0 % Normal 20.5-60.0 [facility] Comment on above: Performed By: #### C BC #### [facility] [address] [place] [address] Dr. Doreen Betancourt MANUAL DIFF REQ NO Normal [facility] Comment on above: Performed By: #### C BC #### [facility] [address] [place] [address] Dr. Doreen Betancourt MCH (RBC) [Entitic mass] 29.3 pg Normal 26.7-34.0 [facility] Comment on above: Performed By: #### C BC #### [facility] [address] [place] [address] Dr. Doreen Betancourt MCHC (RBC) [Mass/Vol] 32.0 g/dL Normal 29.9-35.2 [facility] Comment on above: Performed By: #### C BC #### [facility] [address] [place] [address] Dr. Doreen Betancourt MCV (RBC) [Entitic vol] 91.6 fL Normal 81.0-99.0 [facility] Comment on above: Performed By: #### C BC #### [facility] [address] [place] [address] Dr. Doreen Betancourt MONO # 0.1 103/ul Critically low 0.3-0.8 [facility] Comment on above: Performed By: #### C BC #### [facility] [address] [place] [address] Dr. Doreen Betancourt Monocytes/100 WBC (Bld) 1.5 % Critically low 1.7-12.0 [facility] Comment on above: Performed By: #### C BC #### [facility] [address] [place] [address] Dr. Doreen Betancourt NEUT # 2.5 103/ul Normal 1.4-6.5 [facility] Comment on above: Performed By: #### C BC #### [facility] [address] [place] [address] Dr. Doreen Betancourt Neutrophils/100 WBC (Bld) 54.6 % Normal 43.0-75.0 [facility] Comment on above: Performed By: #### C BC #### [facility] [address] [place] [address] Dr. Doreen Betancourt Platelet mean volume (Bld) [Entitic vol] 10.5 fL Normal 9.5-13.5 [facility] Comment on above: Performed By: #### C BC #### [facility] [address] [place] [address] Dr. Doreen Betancourt PLT 270 103/ul Normal 150-450 [facility] Comment on above: Performed By: #### C BC #### [facility] [address] [place] [address] Dr. Doreen Betancourt RBC 4.50 106/ul Normal 4.20-5.40 [facility] Comment on above: Performed By: #### C BC #### [facility] [address] [place] [address] Dr. Doreen Betancourt WBC 4.6 103/ul Normal 4.0-11.0 [facility] Comment on above: Performed By: #### C BC #### [facility] [address] [place] [address] Dr. Doreen Betancourt PROF 14(COMP METB)on 022 Albumin [Mass/Vol] 3.9 g/dL Normal 3.4-5.0 [facility] Comment on above: Performed By: #### C BC #### [facility] [address] [place] [address] Dr. Doreen Betancourt Albumin/Globulin [Mass ratio] 1.0 {ratio} Normal [facility] Comment on above: Performed By: #### C BC #### [facility] [address] [place] [address] Dr. Doreen Betancourt ALP [Catalytic activity/Vol] 83 U/L Normal 46-116 [facility] Comment on above: Performed By: #### C BC #### [facility] [address] [place] [address] Dr. Doreen Betancourt ALT [Catalytic activity/Vol] 22 U/L Normal 14-59 [facility] Comment on above: Performed By: #### C BC #### [facility] [address] [place] [address] Dr. Doreen Betancourt Anion gap [Moles/Vol] 12.6 mmol/L Normal [facility] Comment on above: Performed By: #### C BC #### [facility] [address] [place] [address] Dr. Doreen Betancourt AST [Catalytic activity/Vol] 16 U/L Normal 15-37 [facility] Comment on above: Performed By: #### C BC #### [facility] [address] [place] [address] Dr. Doreen Betancourt Bilirubin [Mass/Vol] 0.6 mg/dL Normal 0.2-1.0 [facility] Comment on above: Performed By: #### C BC #### [facility] [address] [address] [address] Doreen Betancourt Calcium [Mass/Vol] 9.4 mg/dL Normal 8.5-10.1 [facility] Comment on above: Performed By: #### C BC #### [facility] [address] [place] [address] Dr. Doreen Betancourt Chloride [Moles/Vol] 101 mmol/L Normal 98-107 [facility] Comment on above: Performed By: #### C BC #### [facility] [address] [place] [address] Dr. Doreen Betancourt CO2 [Moles/Vol] 25.9 mmol/L Normal 21.0-32.0 [facility] Comment on above: Performed By: #### C BC #### [facility] [address] [place] [address] Dr. Doreen Betancourt Creatinine [Mass/Vol] 0.64 mg/dL Normal 0.55-1.02 [facility] Comment on above: Performed By: #### C BC #### [facility] [address] [place] [address] Dr. Doreen Betancourt EGFR-AF MONEGASQUE >60 Normal >=60 [facility] Comment on above: Performed By: #### C BC #### [facility] [address] [place] [address] Dr. Doreen Betancourt EGFR-NON AF MONEGASQUE >60 Normal >=60 [facility] Comment on above: Performed By: #### C BC #### [facility] [address] [place] [address] Dr. Doreen Betancourt Globulin (S) [Mass/Vol] 3.9 g/dL Normal [facility] Comment on above: Performed By: #### C BC #### [facility] [address] [place] [address] Dr. Doreen Betancourt Glucose [Mass/Vol] 135 mg/dL Critically high 74-106 [facility] Comment on above: Performed By: #### C BC #### [facility] [address] [place] [address] Dr. Doreen Betancourt Potassium [Moles/Vol] 4.5 mmol/L Normal 3.5-5.1 [facility] Comment on above: Performed By: #### C BC #### [facility] [address] [place] [address] Dr. Doreen Betancourt Protein [Mass/Vol] 7.8 g/dL Normal 6.4-8.2 [facility] Comment on above: Performed By: #### C BC #### [facility] [address] [place] [address] Dr. Doreen Betancourt Sodium [Moles/Vol] 135 mmol/L Critically low 136-145 [facility] Comment on above: Performed By: #### C BC #### [facility] [address] [place] [address] Dr. Doreen Betancourt Urea nitrogen [Mass/Vol] 15.0 mg/dL Normal 7.0-18.0 [facility] Comment on above: Performed By: #### C BC #### [facility] [address] [place] [address] Dr. Doreen Betancourt Urea nitrogen/Creatinine [Mass ratio] 23.4 mg/mg Normal [facility] Comment on above: Performed By: #### C BC #### [facility] [address] [place] [address] Dr. Doreen Betancourt CBC AUTO DIFFon 05-22-2022 BASO # 0.0 103/ul Normal 0.0-0.1 [facility] Comment on above: Performed By: #### C VDTBH #### [facility] [address] [place] [address] Dr. Doreen Betancourt Basophils/100 WBC (Bld) 0.8 % Normal 0.2-2.0 [facility] Comment on above: Performed By: #### C VDTBH #### [facility] [address] [place] [address] Dr. Doreen Betancourt EO # 0.1 103/ul Normal 0.0-0.7 [facility] Comment on above: Performed By: #### C VDTBH #### [facility] [address] [place] [address] Dr. Doreen Betancourt Eosinophils/100 WBC (Bld) 2.7 % Normal 0.9-7.0 [facility] Comment on above: Performed By: #### C VDTBH #### [facility] [address] [place] [address] Dr. Droeen Betancourt Erythrocyte distribution width (RBC) [Ratio] 13.9 % Normal 11.0-15.0 [facility] Comment on above: Performed By: #### C VDTBH #### [facility] [address] [place] [address] Dr. Doreen Betancourt Hematocrit (Bld) [Volume fraction] 40.9 % Normal 36.0-48.0 [facility] Comment on above: Performed By: #### C VDTBH #### [facility] [address] [place] [address] Dr. Doreen Betancourt Hemoglobin (Bld) [Mass/Vol] 13.1 g/dL Normal 12.0-16.0 [facility] Comment on above: Performed By: #### C VDTBH #### [facility] [address] [place] [address] Dr. Doreen Betancourt IG # 0.01 10e3/ul Normal 0.00-0.03 [facility] Comment on above: Performed By: #### C VDTBH #### [facility] [address] [place] [address] Dr. Doreen Betancourt IG % 0.2 % Normal 0.0-0.5 [facility] Comment on above: Performed By: #### C VDTBH #### [facility] [address] [place] [address] Dr. Doreen Betancourt LYMPH # 1.9 103/ul Normal 1.2-3.8 [facility] Comment on above: Performed By: #### C VDTBH #### [facility] [address] [place] [address] Dr. Doreen Betancourt Lymphocytes/100 WBC (Bld) 39.1 % Normal 20.5-60.0 [facility] Comment on above: Performed By: #### C VDTBH #### [facility] [address] [place] [address] Dr. Doreen Betancourt MANUAL DIFF REQ NO Normal [facility] Comment on above: Performed By: #### C VDTBH #### [facility] [address] [place] [address] Dr. Doreen Betancourt MCH (RBC) [Entitic mass] 29.6 pg Normal 26.7-34.0 [facility] Comment on above: Performed By: #### C VDTBH #### [facility] [address] [place] [address] Dr. Doreen Betancourt MCHC (RBC) [Mass/Vol] 32.0 g/dL Normal 29.9-35.2 [facility] Comment on above: Performed By: #### C VDTBH #### [facility] [address] [place] [address] Dr. Doreen Betancourt MCV (RBC) [Entitic vol] 92.3 fL Normal 81.0-99.0 [facility] Comment on above: Performed By: #### C VDTBH #### [facility] [address] [place] [address] Dr. Doreen Betancourt MONO # 0.4 103/ul Normal 0.3-0.8 [facility] Comment on above: Performed By: #### C VDTBH #### [facility] [address] [place] [address] Dr. Doreen Betancourt Monocytes/100 WBC (Bld) 7.6 % Normal 1.7-12.0 [facility] Comment on above: Performed By: #### C VDTBH #### [facility] [address] [place] [address] Dr. Doreen Betancourt NEUT # 2.4 103/ul Normal 1.4-6.5 [facility] Comment on above: Performed By: #### C VDTBH #### [facility] [address] [place] [address] Dr. Doreen Betancourt Neutrophils/100 WBC (Bld) 49.6 % Normal 43.0-75.0 [facility] Comment on above: Performed By: #### C VDTBH #### [facility] [address] [address] [address] Doreen Betancourt Platelet mean volume (Bld) [Entitic vol] 10.3 fL Normal 9.5-13.5 [facility] Comment on above: Performed By: #### C VDTBH #### [facility] [address] [place] [address] Dr. Doreen Betancourt PLT 274 103/ul Normal 150-450 [facility] Comment on above: Performed By: #### C VDTBH #### [facility] [address] [address] [address] Doreen Betancourt RBC 4.43 106/ul Normal 4.20-5.40 [facility] Comment on above: Performed By: #### C VDTBH #### [facility] [address] [place] [address] Dr. Doreen Betancourt WBC 4.9 103/ul Normal 4.0-11.0 [facility] Comment on above: Performed By: #### C VDTBH #### [facility] [address] [place] [address] Dr. Doreen Betancourt MAGNESIUMon 05-22-2022 Magnesium [Mass/Vol] 2.1 mg/dL Normal 1.8-2.4 [facility] Comment on above: Performed By: #### M G, CMP #### [facility] [address] [place] [address] Dr. Doreen Betancourt PREG HCG QUALon 05-22-2022 , QUAL Negative Normal NEGATIVE [facility] Comment on above: Performed By: #### M G, CMP #### [facility] [address] [place] [address] Dr. Doreen Betancourt PROF 14(COMP METB)on 022 Albumin [Mass/Vol] 3.9 g/dL Normal 3.4-5.0 [facility] Comment on above: Performed By: #### M G, CMP #### [facility] [address] [place] [address] Dr. Doreen Betancourt Albumin/Globulin [Mass ratio] 1.1 {ratio} Normal [facility] Comment on above: Performed By: #### M G, CMP #### [facility] [address] [address] [address] Doreen Betancourt ALP [Catalytic activity/Vol] 81 U/L Normal 46-116 [facility] Comment on above: Performed By: #### M G, CMP #### [facility] [address] [address] [address] Doreen Betancourt ALT [Catalytic activity/Vol] 27 U/L Normal 14-59 [facility] Comment on above: Performed By: #### M G, CMP #### [facility] [address] [address] [address] Doreen Betancourt Anion gap [Moles/Vol] 8.6 mmol/L Normal [facility] Comment on above: Performed By: #### M G, CMP #### [facility] [address] [address] [address] Doreen Betancourt AST [Catalytic activity/Vol] 23 U/L Normal 15-37 [facility] Comment on above: Performed By: #### M G, CMP #### [facility] [address] [address] [address] Doreen Betancourt Bilirubin [Mass/Vol] 0.3 mg/dL Normal 0.2-1.0 [facility] Comment on above: Performed By: #### M G, CMP #### [facility] [address] [address] [address] Doreen Betancourt Calcium [Mass/Vol] 9.5 mg/dL Normal 8.5-10.1 [facility] Comment on above: Performed By: #### M G, CMP #### [facility] [address] [address] [address] Doreen Betancourt Chloride [Moles/Vol] 104 mmol/L Normal 98-107 [facility] Comment on above: Performed By: #### M G, CMP #### [facility] [address] [address] [address] Doreen Betancourt CO2 [Moles/Vol] 31.8 mmol/L Normal 21.0-32.0 [facility] Comment on above: Performed By: #### M G, CMP #### [facility] [address] [address] [address] Doreen Betancourt Creatinine [Mass/Vol] 0.59 mg/dL Normal 0.55-1.02 [facility] Comment on above: Performed By: #### M G, CMP #### [facility] [address] [address] [address] Doreen Betancourt EGFR-AF MONEGASQUE >60 Normal >=60 [facility] Comment on above: Performed By: #### M G, CMP #### [facility] [address] [address] [address] Doreen Betancourt EGFR-NON AF MONEGASQUE >60 Normal >=60 [facility] Comment on above: Performed By: #### M G, CMP #### [facility] [address] [place] [address] Dr. Doreen Betancourt Globulin (S) [Mass/Vol] 3.7 g/dL Normal [facility] Comment on above: Performed By: #### M G, CMP #### [facility] [address] [address] [address] Doreen Betancourt Glucose [Mass/Vol] 110 mg/dL Critically high 74-106 [facility] Comment on above: Performed By: #### M G, CMP #### [facility] [address] [place] [address] Dr. Doreen Betancourt Potassium [Moles/Vol] 4.4 mmol/L Normal 3.5-5.1 [facility] Comment on above: Performed By: #### M G, CMP #### [facility] [address] [address] [address] Doreen Betancourt Protein [Mass/Vol] 7.6 g/dL Normal 6.4-8.2 [facility] Comment on above: Performed By: #### M G, CMP #### [facility] [address] [address] [address] Doreen Betancourt Sodium [Moles/Vol] 140 mmol/L Normal 136-145 [facility] Comment on above: Performed By: #### M G, CMP #### [facility] [address] [place], [place] [address] Dr. Doreen Betancourt Urea nitrogen [Mass/Vol] 17.0 mg/dL Normal 7.0-18.0 [facility] Comment on above: Performed By: #### M G, CMP #### [facility] [address] [place], [place] [address] Dr. Doreen Betancourt Urea nitrogen/Creatinine [Mass ratio] 28.8 mg/mg Normal [facility] Comment on above: Performed By: #### M G, CMP #### [facility] [address] [place], [place] [address] Dr. Doreen Betancourt XR CHEST 1 Von [...] NEDA COULTER Date: 2022-05-22 11:22 Normal [facility] Covid-19 PCR (CVDTB)on 05-07 SARS-CoV-2 (COVID-19) RNA MARIVEL+probe Ql (Unsp spec) Not detected Normal NOT DETECTED [facility] Comment on above: Result Comment: This test is not yet approved or cleared by the [place] FDA. When there are no FDA-approved or cleared tests available, and other criteria are met, FDA can make tests available under an emergency access mechanism called an Emergency Use Authorization (EUA). The EUA for this test is supported by the [place] of Health and Human Service's (HHS's) declaration [...] consistent with SARS-CoV-2. Performed By: #### C VDTB #### [facility] [address] [place] [address] Dr. Doreen Betancourt CBC AUTO DIFFon 04-13-2022 BASO # 0.0 103/ul Normal 0.0-0.1 [facility] Comment on above: Performed By: #### M G, CMP #### [facility] [address] [place] [address] Dr. Doreen Betancourt Basophils/100 WBC (Bld) 0.4 % Normal 0.2-2.0 [facility] Comment on above: Performed By: #### M G, CMP #### [facility] [address] [place] [address] Dr. Doreen Betancourt EO # 0.1 103/ul Normal 0.0-0.7 [facility] Comment on above: Performed By: #### Gay G, CMP #### [facility] [address] [place] [address] Dr. Doreen Betancourt Eosinophils/100 WBC (Bld) 0.7 % Critically low 0.9-7.0 [facility] Comment on above: Performed By: #### Gay G, CMP #### [facility] [address] [place] [address] Dr. Doreen Betancourt Erythrocyte distribution width (RBC) [Ratio] 12.9 % Normal 11.0-15.0 [facility] Comment on above: Performed By: #### M G, CMP #### [facility] [address] [place] [address] Dr. Doreen Betancourt Hematocrit (Bld) [Volume fraction] 32.5 % Critically low 36.0-48.0 [facility] Comment on above: Performed By: #### M G, CMP #### [facility] [address] [place] [address] Dr. Doreen Betancourt Hemoglobin (Bld) [Mass/Vol] 10.6 g/dL Critically low 12.0-16.0 [facility] Comment on above: Performed By: #### M G, CMP #### [facility] [address] [place] [address] Dr. Doreen Betancourt IG # 0.02 10e3/ul Normal 0.00-0.03 [facility] Comment on above: Performed By: #### M G, CMP #### [facility] [address] [place] [address] Dr. Doreen Betancourt IG % 0.3 % Normal 0.0-0.5 [facility] Comment on above: Performed By: #### M G, CMP #### [facility] [address] [place] [address] Dr. Doreen Betancourt LYMPH # 2.2 103/ul Normal 1.2-3.8 [facility] Comment on above: Performed By: #### M G, CMP #### [facility] [address] [place] [address] Dr. Doreen Betancourt Lymphocytes/100 WBC (Bld) 32.0 % Normal 20.5-60.0 [facility] Comment on above: Performed By: #### M G, CMP #### [facility] [address] [place] [address] Dr. Doreen Betancourt MANUAL DIFF REQ NO Normal [facility] Comment on above: Performed By: #### M G, CMP #### [facility] [address] [place] [address] Dr. Doreen Betancourt MCH (RBC) [Entitic mass] 30.5 pg Normal 26.7-34.0 [facility] Comment on above: Performed By: #### M G, CMP #### [facility] [address] [place] [address] Dr. Doreen Betancourt MCHC (RBC) [Mass/Vol] 32.6 g/dL Normal 29.9-35.2 [facility] Comment on above: Performed By: #### M G, CMP #### [facility] [address] [place] [address] Dr. Doreen Betancourt MCV (RBC) [Entitic vol] 93.4 fL Normal 81.0-99.0 [facility] Comment on above: Performed By: #### M G, CMP #### [facility] [address] [address] [address] Doreen Betancourt MONO # 0.6 103/ul Normal 0.3-0.8 [facility] Comment on above: Performed By: #### M G, CMP #### [facility] [address] [place] [address] Dr. Doreen Betancourt Monocytes/100 WBC (Bld) 8.3 % Normal 1.7-12.0 [facility] Comment on above: Performed By: #### M G, CMP #### [facility] [address] [place] [address] Dr. Doreen Betancourt NEUT # 3.9 103/ul Normal 1.4-6.5 [facility] Comment on above: Performed By: #### M G, CMP #### [facility] [address] [place] [address] Dr. Doreen Betancourt Neutrophils/100 WBC (Bld) 58.3 % Normal 43.0-75.0 [facility] Comment on above: Performed By: #### M G, CMP #### [facility] [address] [place] [address] Dr. Doreen Betancourt Platelet mean volume (Bld) [Entitic vol] 10.4 fL Normal 9.5-13.5 [facility] Comment on above: Performed By: #### M G, CMP #### [facility] [address] [place] [address] Dr. Doreen Betancourt PLT 213 103/ul Normal 150-450 [facility] Comment on above: Performed By: #### M G, CMP #### [facility] [address] [place] [address] Dr. Doreen Betancourt RBC 3.48 106/ul Critically low 4.20-5.40 [facility] Comment on above: Performed By: #### M G, CMP #### [facility] [address] [address] [address] Doreen Betancourt WBC 6.8 103/ul Normal 4.0-11.0 [facility] Comment on above: Performed By: #### M G, CMP #### [facility] [address] [address] [address] Doreen Betancourt PROF CHEM 8 (BAS METB)on Anion gap [Moles/Vol] 7.3 mmol/L Normal [facility] Comment on above: Performed By: #### M G, CMP #### [facility] [address] [place] [address] Dr. Doreen Betancourt Calcium [Mass/Vol] 8.8 mg/dL Normal 8.5-10.1 [facility] Comment on above: Performed By: #### M G, CMP #### [facility] [address] [place] [address] Dr. Doreen Betancourt Chloride [Moles/Vol] 105 mmol/L Normal 98-107 [facility] Comment on above: Performed By: #### M G, CMP #### [facility] [address] [place] [address] Dr. Doreen Betancourt CO2 [Moles/Vol] 27.8 mmol/L Normal 21.0-32.0 [facility] Comment on above: Performed By: #### M G, CMP #### [facility] [address] [place] [address] Dr. Doreen Betancourt Creatinine [Mass/Vol] 0.57 mg/dL Normal 0.55-1.02 [facility] Comment on above: Performed By: #### M G, CMP #### [facility] [address] [place] [address] Dr. Doreen Betancourt EGFR-AF MONEGASQUE >60 Normal >=60 [facility] Comment on above: Performed By: #### M G, CMP #### [facility] [address] [place] [address] Dr. Doreen Betancourt EGFR-NON AF MONEGASQUE >60 Normal >=60 [facility] Comment on above: Performed By: #### M G, CMP #### [facility] [address] [address] [address] Doreen Betancourt Glucose [Mass/Vol] 93 mg/dL Normal 74-106 [facility] Comment on above: Performed By: #### M G, CMP #### [facility] [address] [address] [address] Doreen Betancourt Potassium [Moles/Vol] 4.1 mmol/L Normal 3.5-5.1 [facility] Comment on above: Performed By: #### M G, CMP #### [facility] [address] [address] [address] Doreen Betancourt Sodium [Moles/Vol] 136 mmol/L Normal 136-145 [facility] Comment on above: Performed By: #### M G, CMP #### [facility] [address] [place] [address] Dr. Doreen Betancourt Urea nitrogen [Mass/Vol] 5.0 mg/dL Critically low 7.0-18.0 [facility] Comment on above: Performed By: #### M G, CMP #### [facility] [address] [place] [address] Dr. Doreen Betancourt Urea nitrogen/Creatinine [Mass ratio] 8.8 mg/mg Normal [facility] Comment on above: Performed By: #### M G, CMP #### [facility] [address] [place] [address] Dr. Doreen Betancourt PROF CHEM 8 (BAS METB)on Anion gap [Moles/Vol] 9.6 mmol/L Normal [facility] Comment on above: Performed By: #### C VDTBH #### [facility] [address] [address] [address] Doreen Betancourt Calcium [Mass/Vol] 8.8 mg/dL Normal 8.5-10.1 [facility] Comment on above: Performed By: #### C VDTBH #### [facility] [address] [place] [address] Dr. Doreen Betancourt Chloride [Moles/Vol] 101 mmol/L Normal 98-107 [facility] Comment on above: Performed By: #### C VDTBH #### [facility] [address] [address] [address] Doreen Betancourt CO2 [Moles/Vol] 26.8 mmol/L Normal 21.0-32.0 [facility] Comment on above: Performed By: #### C VDTBH #### [facility] [address] [address] [address] Doreen Betancourt Creatinine [Mass/Vol] 0.53 mg/dL Critically low 0.55-1.02 [facility] Comment on above: Performed By: #### C VDTBH #### [facility] [address] [address] [address] Doreen Betancourt EGFR-AF MONEGASQUE >60 Normal >=60 [facility] Comment on above: Performed By: #### C VDTBH #### [facility] [address] [address] [address] Doreen Betancourt EGFR-NON AF MONEGASQUE >60 Normal >=60 [facility] Comment on above: Performed By: #### C VDTBH #### [facility] [address] [address] [address] Doreen Betancourt Glucose [Mass/Vol] 122 mg/dL Critically high 74-106 [facility] Comment on above: Performed By: #### C VDTBH #### [facility] [address] [address] [address] Doreen Betancourt Potassium [Moles/Vol] 3.4 mmol/L Critically low 3.5-5.1 [facility] Comment on above: Performed By: #### C VDTBH #### [facility] [address] [address] [address] Doreen Betancourt Sodium [Moles/Vol] 134 mmol/L Critically low 136-145 [facility] Comment on above: Performed By: #### C VDTBH #### [facility] [address] [address] [address] Doreen Betancourt Urea nitrogen [Mass/Vol] 6.0 mg/dL Critically low 7.0-18.0 [facility] Comment on above: Performed By: #### C VDTBH #### [facility] [address] [place] [address] Dr. Doreen Betancourt Urea nitrogen/Creatinine [Mass ratio] 11.3 mg/mg Normal [facility] Comment on above: Performed By: #### C VDTBH #### [facility] [address] [place] [address] Dr. Doreen Betancourt CBC AUTO DIFFon 04-11-2022 BASO # 0.0 103/ul Normal 0.0-0.1 [facility] Comment on above: Performed By: #### M G, CMP #### [facility] [address] [place] [address] Dr. Doreen Betancourt Basophils/100 WBC (Bld) 0.1 % Critically low 0.2-2.0 [facility] Comment on above: Performed By: #### M G, CMP #### [facility] [address] [place] [address] Dr. Doreen Betancourt EO # 0.0 103/ul Normal 0.0-0.7 [facility] Comment on above: Performed By: #### M G, CMP #### [facility] [address] [place] [address] Dr. Doreen Betancourt Eosinophils/100 WBC (Bld) 0.0 % Critically low 0.9-7.0 [facility] Comment on above: Performed By: #### M G, CMP #### [facility] [address] [place] [address] Dr. Doreen Betancourt Erythrocyte distribution width (RBC) [Ratio] 13.0 % Normal 11.0-15.0 [facility] Comment on above: Performed By: #### M G, CMP #### [facility] [address] [place] [address] Dr. Doreen Betancourt Hematocrit (Bld) [Volume fraction] 35.6 % Critically low 36.0-48.0 [facility] Comment on above: Performed By: #### M G, CMP #### [facility] [address] [place] [address] Dr. Doreen Betancourt Hemoglobin (Bld) [Mass/Vol] 11.5 g/dL Critically low 12.0-16.0 [facility] Comment on above: Performed By: #### M G, CMP #### [facility] [address] [place] [address] Dr. Doreen Betancourt IG # 0.02 10e3/ul Normal 0.00-0.03 [facility] Comment on above: Performed By: #### M G, CMP #### [facility] [address] [place] [address] Dr. Doreen Betancourt IG % 0.2 % Normal 0.0-0.5 [facility] Comment on above: Performed By: #### M G, CMP #### [facility] [address] [place] [address] Dr. Doreen Betancourt LYMPH # 1.3 103/ul Normal 1.2-3.8 [facility] Comment on above: Performed By: #### M G, CMP #### [facility] [address] [place] [address] Dr. Doreen Betancourt Lymphocytes/100 WBC (Bld) 12.4 % Critically low 20.5-60.0 [facility] Comment on above: Performed By: #### M G, CMP #### [facility] [address] [place] [address] Dr. Doreen Betancourt MANUAL DIFF REQ NO Normal [facility] Comment on above: Performed By: #### M G, CMP #### [facility] [address] [place] [address] Dr. Doreen Betancourt MCH (RBC) [Entitic mass] 29.9 pg Normal 26.7-34.0 [facility] Comment on above: Performed By: #### M G, CMP #### [facility] [address] [place] [address] Dr. Doreen Betancourt MCHC (RBC) [Mass/Vol] 32.3 g/dL Normal 29.9-35.2 [facility] Comment on above: Performed By: #### M G, CMP #### [facility] [address] [place] [address] Dr. Doreen Betancourt MCV (RBC) [Entitic vol] 92.7 fL Normal 81.0-99.0 [facility] Comment on above: Performed By: #### M G, CMP #### [facility] [address] [place] [address] Dr. Doreen Betancourt MONO # 0.9 103/ul Critically high 0.3-0.8 [facility] Comment on above: Performed By: #### M G, CMP #### [facility] [address] [place] [address] Dr. Doreen Betancourt Monocytes/100 WBC (Bld) 8.8 % Normal 1.7-12.0 [facility] Comment on above: Performed By: #### M G, CMP #### [facility] [address] [place] [address] Dr. Doreen Betancourt NEUT # 8.3 103/ul Critically high 1.4-6.5 [facility] Comment on above: Performed By: #### M G, CMP #### [facility] [address] [place] [address] Dr. Doreen Betancourt Neutrophils/100 WBC (Bld) 78.5 % Critically high 43.0-75.0 [facility] Comment on above: Performed By: #### M G, CMP #### [facility] [address] [place] [address] Dr. Doreen Betancourt Platelet mean volume (Bld) [Entitic vol] 10.6 fL Normal 9.5-13.5 [facility] Comment on above: Performed By: #### M G, CMP #### [facility] [address] [place] [address] Dr. Doreen Betancourt PLT 218 103/ul Normal 150-450 [facility] Comment on above: Performed By: #### M G, CMP #### [facility] [address] [place] [address] Dr. Doreen Betancourt RBC 3.84 106/ul Critically low 4.20-5.40 [facility] Comment on above: Performed By: #### M G, CMP #### [facility] [address] [place] [address] Dr. Doreen Betancourt WBC 10.6 103/ul Normal 4.0-11.0 [facility] Comment on above: Performed By: #### M G, CMP #### [facility] [address] [place] [address] Dr. Doreen Betancourt PROF CHEM 8 (BAS METB)on Anion gap [Moles/Vol] 9.4 mmol/L Normal [facility] Comment on above: Performed By: #### M G, CMP #### [facility] [address] [place] [address] Dr. Doreen Betancourt Calcium [Mass/Vol] 8.4 mg/dL Critically low 8.5-10.1 [facility] Comment on above: Performed By: #### M G, CMP #### [facility] [address] [place] [address] Dr. Doreen Betancourt Chloride [Moles/Vol] 105 mmol/L Normal 98-107 [facility] Comment on above: Performed By: #### M G, CMP #### [facility] [address] [place] [address] Dr. Doreen Betancourt CO2 [Moles/Vol] 25.1 mmol/L Normal 21.0-32.0 [facility] Comment on above: Performed By: #### M G, CMP #### [facility] [address] [place] [address] Dr. Doreen Betancourt Creatinine [Mass/Vol] 0.50 mg/dL Critically low 0.55-1.02 [facility] Comment on above: Performed By: #### M G, CMP #### [facility] [address] [place] [address] Dr. Doreen Betancourt EGFR-AF MONEGASQUE >60 Normal >=60 [facility] Comment on above: Performed By: #### M G, CMP #### [facility] [address] [place] [address] Dr. Doreen Betancourt EGFR-NON AF MONEGASQUE >60 Normal >=60 [facility] Comment on above: Performed By: #### M G, CMP #### [facility] [address] [place], [place] [id number] Dr. Doreen Betancourt Glucose [Mass/Vol] 114 mg/dL Critically high 74-106 [facility] Comment on above: Performed By: #### M G, CMP #### [facility] [address] [place] [address] Dr. Doreen Betancourt Potassium [Moles/Vol] 3.5 mmol/L Normal 3.5-5.1 [facility] Comment on above: Performed By: #### M G, CMP #### [facility] [address] [place] [address] Dr. Doreen Betancourt Sodium [Moles/Vol] 136 mmol/L Normal 136-145 [facility] Comment on above: Performed By: #### M G, CMP #### [facility] [address] [place] [address] Dr. Doreen Betancourt Urea nitrogen [Mass/Vol] 6.0 mg/dL Critically low 7.0-18.0 [facility] Comment on above: Performed By: #### M G, CMP #### [facility] [address] [place] [address] Dr. Doreen Betancourt Urea nitrogen/Creatinine [Mass ratio] 12.0 mg/mg Normal [facility] Comment on above: Performed By: #### M G, CMP #### [facility] [address] [place] [address] Dr. Doreen Betancourt CBC AUTO DIFFon 04-08-2022 BASO # 0.1 103/ul Normal 0.0-0.1 [facility] Comment on above: Performed By: #### M G, CMP #### [facility] [address] [place] [address] Dr. Doreen Betancourt Basophils/100 WBC (Bld) 0.8 % Normal 0.2-2.0 [facility] Comment on above: Performed By: #### M G, CMP #### [facility] [address] [place] [address] Dr. Doreen Betancourt EO # 0.1 103/ul Normal 0.0-0.7 [facility] Comment on above: Performed By: #### M G, CMP #### [facility] [address] [place] [address] Dr. Doreen Betancourt Eosinophils/100 WBC (Bld) 1.8 % Normal 0.9-7.0 [facility] Comment on above: Performed By: #### M G, CMP #### [facility] [address] [place] [address] Dr. Doreen Betancourt Erythrocyte distribution width (RBC) [Ratio] 13.0 % Normal 11.0-15.0 [facility] Comment on above: Performed By: #### M G, CMP #### [facility] [address] [place] [address] Dr. Doreen Betancourt Hematocrit (Bld) [Volume fraction] 42.1 % Normal 36.0-48.0 [facility] Comment on above: Performed By: #### M G, CMP #### [facility] [address] [place] [address] Dr. Doreen Betancourt Hemoglobin (Bld) [Mass/Vol] 13.4 g/dL Normal 12.0-16.0 [facility] Comment on above: Performed By: #### M G, CMP #### [facility] [address] [place] [address] Dr. Doreen Betancourt IG # 0.02 10e3/ul Normal 0.00-0.03 [facility] Comment on above: Performed By: #### M G, CMP #### [facility] [address] [place] [address] Dr. Doreen Betancourt IG % 0.3 % Normal 0.0-0.5 [facility] Comment on above: Performed By: #### M G, CMP #### [facility] [address] [place] [address] Dr. Doreen Betancourt LYMPH # 2.1 103/ul Normal 1.2-3.8 [facility] Comment on above: Performed By: #### M G, CMP #### [facility] [address] [place] [address] Dr. Doreen Betancourt Lymphocytes/100 WBC (Bld) 31.6 % Normal 20.5-60.0 [facility] Comment on above: Performed By: #### M G, CMP #### [facility] [address] [place] [address] Dr. Doreen Betancourt MANUAL DIFF REQ NO Normal [facility] Comment on above: Performed By: #### M G, CMP #### [facility] [address] [place] [address] Dr. Doreen Betancourt MCH (RBC) [Entitic mass] 30.2 pg Normal 26.7-34.0 [facility] Comment on above: Performed By: #### M G, CMP #### [facility] [address] [place] [address] Dr. Doreen Betancourt MCHC (RBC) [Mass/Vol] 31.8 g/dL Normal 29.9-35.2 [facility] Comment on above: Performed By: #### M G, CMP #### [facility] [address] [place] [address] Dr. Doreen Betancourt MCV (RBC) [Entitic vol] 95.0 fL Normal 81.0-99.0 [facility] Comment on above: Performed By: #### M G, CMP #### [facility] [address] [place] [address] Dr. Doreen Betancourt MONO # 0.4 103/ul Normal 0.3-0.8 [facility] Comment on above: Performed By: #### M G, CMP #### [facility] [address] [place] [address] Dr. Doreen Betancourt Monocytes/100 WBC (Bld) 6.2 % Normal 1.7-12.0 [facility] Comment on above: Performed By: #### M G, CMP #### [facility] [address] [place] [address] Dr. Doreen Betancourt NEUT # 3.9 103/ul Normal 1.4-6.5 [facility] Comment on above: Performed By: #### M G, CMP #### [facility] [address] [place] [address] Dr. Doreen Betacnourt Neutrophils/100 WBC (Bld) 59.3 % Normal 43.0-75.0 [facility] Comment on above: Performed By: #### M G, CMP #### [facility] [address] [address] [address] Doreen Betancourt Platelet mean volume (Bld) [Entitic vol] 10.2 fL Normal 9.5-13.5 [facility] Comment on above: Performed By: #### M G, CMP #### [facility] [address] [address] [address] Doreen Betancourt PLT 276 103/ul Normal 150-450 [facility] Comment on above: Performed By: #### M G, CMP #### [facility] [address] [address] [address] Doreen Betancourt RBC 4.43 106/ul Normal 4.20-5.40 [facility] Comment on above: Performed By: #### M G, CMP #### [facility] [address] [address] [address] Doreen Betancourt WBC 6.6 103/ul Normal 4.0-11.0 [facility] Comment on above: Performed By: #### M G, CMP #### [facility] [address] [address] [address] Doreen Betancourt Covid-19 PCR ([facility])on SARS-CoV-2 (COVID-19) RNA MARIVEL+probe Ql (Unsp spec) Not detected Normal NOT DETECTED [facility] Comment on above: Result Comment: When diagnostic [...] for this test is supported by the [employer] of Health and Human Service's declaration that [...] no longer be used). Performed By: #### Gay Martino, CMP #### [facility] [address] [place] [address] Dr. Doreen Betancourt TYPE AND SCREENon 04-08-2022 TYPE AND SCREEN Negative Normal [facility] Comment on above: Performed By: #### Gay Martino, CMP #### [facility] [address] [place] [address] Dr. Doreen Betancourt CEAon 2022 CEA 4.9 ng/mL Critically high 0.0-4.7 [facility] Comment on above: Result Comment: Nons mokers <3.9 Smokers <5.6 . [employer] Electrochemiluminescence Immunoassay (ECLIA) . Values obtained with different assay methods or kits cannot be used interchangeably. Results cannot be interpreted as absolute evidence of the presence or absence of malignant disease. Performed By: #### Gay Martino, CMP #### [facility] [address] [place] [address] Dr. Doreen Betancourt PROF 14(COMP METB)on 022 Albumin [Mass/Vol] 3.6 g/dL Normal 3.4-5.0 [facility] Comment on above: Performed By: #### Gay Martino, CMP #### [facility] [address] [place] [address] Dr. Doreen Betancourt Albumin/Globulin [Mass ratio] 1.1 {ratio} Normal [facility] Comment on above: Performed By: #### Gay Martino, CMP #### [facility] [address] [place] [address] Dr. Doreen Betancourt ALP [Catalytic activity/Vol] 76 U/L Normal 46-116 [facility] Comment on above: Performed By: #### Gay Martino, CMP #### [facility] [address] [place] [address] Dr. Doreen Betancourt ALT [Catalytic activity/Vol] 18 U/L Normal 14-59 [facility] Comment on above: Performed By: #### Gay Martino, CMP #### [facility] [address] [place] [address] Dr. Doreen Betancourt Anion gap [Moles/Vol] 12.7 mmol/L Normal Th [facility] Comment on above: Performed By: #### M G, CMP #### [facility] [address] [place] [address] Dr. Doreen Betancourt AST [Catalytic activity/Vol] 15 U/L Normal 15-37 [facility] Comment on above: Performed By: #### M G, CMP #### [facility] [address] [place] [address] Dr. Doreen Betancourt Bilirubin [Mass/Vol] 0.3 mg/dL Normal 0.2-1.0 [facility] Comment on above: Performed By: #### M G, CMP #### [facility] [address] [place] [address] Dr. Doreen Betancourt Calcium [Mass/Vol] 8.8 mg/dL Normal 8.5-10.1 [facility] Comment on above: Performed By: #### Gay Salena, CMP #### [facility] [address] [place] [address] Dr. Doreen Betancourt Chloride [Moles/Vol] 104 mmol/L Normal 98-107 [facility] Comment on above: Performed By: #### Gay Martino, CMP #### [facility] [address] [place] [address] Dr. Doreen Betancourt CO2 [Moles/Vol] 25.5 mmol/L Normal 21.0-32.0 [facility] Comment on above: Performed By: #### Gay Salena, CMP #### [facility] [address] [place] [address] Dr. Doreen Betancourt Creatinine [Mass/Vol] 0.61 mg/dL Normal 0.55-1.02 [facility] Comment on above: Performed By: #### M G, CMP #### [facility] [address] [place] [address] Dr. Doreen Betancourt EGFR-AF MONEGASQUE >60 Normal >=60 [facility] Comment on above: Performed By: #### M G, CMP #### [facility] [address] [place] [address] Dr. Doreen Betancourt EGFR-NON AF MONEGASQUE >60 Normal >=60 [facility] Comment on above: Performed By: #### M G, CMP #### [facility] [address] [place] [address] Dr. Doreen Betancourt Globulin (S) [Mass/Vol] 3.3 g/dL Normal [facility] Comment on above: Performed By: #### M G, CMP #### [facility] [address] [place] [address] Dr. Doreen Betancourt Glucose [Mass/Vol] 93 mg/dL Normal 74-106 [facility] Comment on above: Performed By: #### M G, CMP #### [facility] [address] [place] [address] Dr. Doreen Betancourt Potassium [Moles/Vol] 4.2 mmol/L Normal 3.5-5.1 [facility] Comment on above: Performed By: #### Gay G, CMP #### [facility] [address] [place] [address] Dr. Doreen Betancourt Protein [Mass/Vol] 6.9 g/dL Normal 6.4-8.2 [facility] Comment on above: Performed By: #### M G, CMP #### [facility] [address] [place] [address] Dr. Doreen Betancourt Sodium [Moles/Vol] 138 mmol/L Normal 136-145 [facility] Comment on above: Performed By: #### M G, CMP #### [facility] [address] [place] [address] Dr. Doreen Betancourt Urea nitrogen [Mass/Vol] 17.0 mg/dL Normal 7.0-18.0 [facility] Comment on above: Performed By: #### M G, CMP #### [facility] [address] [place] [address] Dr. Doreen Betancourt Urea nitrogen/Creatinine [Mass ratio] 27.9 mg/mg Normal [facility] Comment on above: Performed By: #### M G, CMP #### [facility] [address] [place] [address] ABD/PELV W CONon 03-27-20 CT ABD/PELV W CON EXAMINATION: CT ABD/ [...] NEDA COULTER Date: 2022-03-27 17:13 Normal [facility] Covid-19 PCR ([facility])on SARS-CoV-2 (COVID-19) RNA MARIVEL+probe Ql (Unsp spec) Not detected Normal NOT DETECTED [facility] Comment on above: Result Comment: This test is not yet approved or cleared by the [place] FDA. When there are no FDA-approved or cleared tests available, and other criteria are met, FDA can make tests available under an emergency access mechanism called an Emergency Use Authorization (EUA). The EUA for this test is supported by the [employer] Technician of Health and Human Service's (HHS's) declaration [...] with SARS-CoV-2. Performed By: #### M G, [facility] #### [facility] [address] [place] [address] ABD/PELV W CONon [...] NEDA COULTER Date: 2022-01-09 17:53 Normal [facility] [facility] Coding Summaryon 05-01-2021 Coding Summary [employer]Base 64 FporeydwBSq1fSc+PGhlYWQ+PE 7JVZKfV21ezHQfzH3UK4jSDT8H ZNLPBZIZLN5IXP7doJD6JRizF5 VybiAv BcsnaTBtDZ63THn4HHD9uVtyAF yiwV7fcHGiR6r7BuKvSO63mX46 HWvgPQQaAcS4MdXawuffiBTi A1laGtOfbMNzRmp+PHRhYmxlIH kjGCFuGXqkSNKtSiNpdIleNX7x Rw6iZJArXRZmhCapcGEpCfUb v2cmDHDbCVczVX5riXlhB1RemN R6XLAnc0b2Tz95zYX+PHRkIHN0 eBebXTjgb159QjAtr4enYZY4 xILdDWznNTO2Y54nv5V7KHOuUK SfICS2cGR0hI9mzSeplsbbZ4Lp gFSzZwL3FOQ4nZPafK8ykPht eaiqcN6hQze+B99IUN8DDOBAVH 1HUwg3Q0XjTaawcPF+LH49ZSYy CT13yPZstGUfn7qexLz2ByJo FACpCQS9qBorAThgf2YjWNGhD6 1zgLDsl4D6SHXepQiekNUtBxMe cYP7zN2jRVljhiyvk4pswkll Orabn7sfyc40uR12D99kUIvzUT ZoNME2MJJnTODziGxjnn9hbE5s Ii8+YNyxg0ypw6hxuHn9SwTd WABijjBfeTuzBCH7b6AyRe77F4 BtvFxfs0XxWkx9cw11xTSyu6V0 yPT2ZEwtQJYpzG1aSAcfOyU4 ZHXjBgDkqJ19tVDbYWyjUw8llD kwnKqyQR7sBYIogecgMNOekE7x EXSnaAKmjLrfKW5fGJMazcrn k592BdSrWKI8ZYDyfUFfG2HilU 0yLiRiFCNbYJPjB2JxmWSiKZwl C967BTzpKzR3TRHeucHyV4Qv NOFzgEawAsJ1g9D6Hy1Bf1Rvmr cgUCJ4FRvoTGBvFjR8UgAlZoN0 P6BzPbx3LPHzsOjfCI7oI5Ij WSYyosokuwoopII9HWLjQEFsiA 35pFSnBMpbEw4xw5W6w284MVHt WFDuaZ97Ua2owHjnXPDroJPW iI5gladfa6pvqleoGwZkVCCvCM w1GCh0HVMweQvcFvSpZOT4PrG5 FTV6gXPfdY0onQrllturuN3f Oyc+C61vuY4tQHO9REE1lxlwZQ NesfPlIO85IQ16M3RtIhjmlZCr bGU+JDBtbwNcgLziKX9kUpMa m5pns0RdPPfxL0PqPHGtUHrvGe z1FITxCKS0lOG3cC6qKCBuCVwd l7E1pCA7R1AtklGbba2li2le QWRoFNocL20clMZah0S7WEUqyW E1AVBadOyrChQnsD82Ltx+PGNv wUaxg4YwJpcid1htv3gkmAc0 JfYrUMXfqrGjbRwzGTU0k2IbHo 71M24bONtqJMMlWECbTAVyWUGi lCirea9ytF0pLb6+PGNvbCB3 wOE2uD7cXAWgGzB4TTslD672Ay XflLUhNinau9ouo5lccBm6JmZi TTTrthKuuDwsTWH0j2NsOl57 Z93aFWsvHDFaJKPpUTFfGJXupX usic1hlH6dRc5+ZH7ip5xrdz14 gY12pLG+RBMnNXX1vCzaCMwj JNGywV1lGVppZaV1LDQvDsJpjO 62rJNdQGwgMd4nrCtvqYvpDV4h ZLGgvczoq433WmJcw3hcWWXh hHGpIHivMQN4U83nd1K0EKDbDU UgQQD8iKP4iL4ahAwhtarsoTAj eOvqasRqpIifFKfcCWewI690 IHRvcDsnPlBhdGllbnQgTmFtZT w4R4LoTcm0JQFlnMhiNP2ycFEq EKzzLx7yxAdwiKtkFO5yFGIc rzntd132WeYdo1ogPSUxfAAwGM gaTIE8X80jp3H9BBPmPBIvPXL8 xKP6kM6xtTlfhnhijIIgzLvk urNkpZchWNuvLKxxB086EPBdfC huYvFzrgOnCLNhxYH9WF05YB92 aAAtx8R0sUJ7V6RnVWCxbkdf vlgerOK1IBDtVTUrhI28Di7cgJ qiUk6aNLJuCQH8YLCkxBGyM5Ps vY4sXrRaVLQwGCGiU5VnzMPb LLclF916GOtzNdQ4ICMpnlGtF6 CwIGCkkWlgHmN1d8U0Ou9ZR4E2 ZS72OD64aYQiw2I1dXW6E3Ag MFDzpuntzdfhsIF5YJZyAFNhuI 19Wb8pjBawYw1yTMDlDHH1UBFv cNYoL5YpaV6mBgBsPZUqTDWz M4YbyNJiENhbL903XQavAxO3JE BatvAoD3LoEKRtqRftMfI5n2R3 Ia9NCCk1KL39LG59kVLhw7C2 iLN4X4MoVHAupnlmtuxdoKB9ZW CuAPRmwL70Qq0eoCevSs1sJDBw SBX6AVQluRXjK7RwuV8oYkGa JOHxACXrA9VwhGDyAOykN764XF yzNiX1NMCceqIkH0RqCYIneKzc ZgK4r6V6Xz7SZAWkBF08FUT4 rTP1EE32DD10Y1AhYyhznAUnaR U+PHRhYmxlIHdpZHRoPScxMDAl DvOzfXuvMK7oQr2lXEFcOWCq eZczoFDxGbAgt1wnAORaGGkhKT 7caReaH4TteOM5JGSda4u6Mm31 T44hE0WbsJJ+SQLzoKA8oKE2 pG3dXnPuThR0SNgmV611HxTgbT QvLerrb5hqm5jkjEg0MuA8WDCp ifMucQfyDPO5i9NnBc23B76k IHdpZHRoPSIxNSUiIHZhbGlnbj 2wyW2bOn1+FFEdbAX6vXC1tA9o SiHeQzZ0YPihG609KaGlaMDm Jepim0yoz1abuWq0PaWiFVDvon EojAxiGUE1g4CmSx28H7CnsDdo n0RbKur9xt02hSYai5A6cUG8 T4DpPEZnvufueYPwdZxnJS5sJG TndollJZBpfB4yRBVaA3p0HfMq BrX8KPqvE8AmylA7OLWzmNOg OHuoZMJ4Z45jx2W2TUOoVDAzOS Q1tXE9oW3hiEyrbtkutEXflSfq gaHfvAwjVUnvWHcyF036SCLv aOdzGEBfzF4uHJCtcXVrbYziLV 4wNTBpbjsnPlBFVElUVEksIEpV RElUSDwvdGQ+GZEvCLV8bXia FDycZPGyfJ5mFPOkL4y0TkDgSg A5ZTcwE7OfVQOcydomQc58dT2y QbShBiA0WXhxG6UhkmZ1QNCq qFWnVPqbBOX7O03jq8R0NGQtAQ WkXRM0yPU8xS2maFmnrojjkCIw pKswrvJbjRsxBJzjTDrtT906 DZCthUibMiR8AtO3RkD6OzV3X8 DnAjc8XMZnzBhpLN3feRXvMIxm Xv6htLkvaXntSP9lWWNejttz PCKdwN3aDVPoxHZxqTppPY2wJX Amlhuri833RzVrAKQ2SSYtiLMn U8PhgY7tJmFiUZDpUZQlL6Gt eWHuIBbjD587JJlnCqV6ZYFvhv BtM4NlTJXjkOphSmG0d6C3Zp95 NSBZZWFyczwvdGQ+PHRkIHN0 yRhjOXmwUZNogK9pLMGrU4y4Jo SrMdW6IRntO2NzAAYeahspBk40 bE1dXfBgNrR8SYetD4GuipK3 JFUimXXnVXwmEHH1G71vv3G0DE FpWTYuDNJ3kAQ6jV3rhCllpvtw bGVmdDsgdmVydGljYWwtYWxp A867JVOtgAjoLyUSVZHCVSazfJ Q+DEZeCVY2oDyiSTgxLNUorE1e ZUSrV5v0HsMeQtI5OMdiV0Ht DKDzwqcrZx36jR1uGuLmJhI7LM cgM7NkfhY6OUXhbSQiIUvrWXV4 R62vu8B1ERJePFOvBXK9gBJ2 yS2kjVdwvpjikYWtmOncwbAlrF ffGEgcIJsrG491ANDkcEuxOg3X UO23NL69T0EeBlnqdUHvuIL+ PHRhYmxlIHdpZHRoPScxMDAlJy KxzOrpEC2cKc9pWJMrBXBzzYzh rTTdOeEgy2ypMQPkYMzpDE7a yCetB0OuvCX8OXTtj4c5Xj02C4 5rN0QobJI+CPAzbUN7pVY3eL2n KoWcBzT2TMrqX705FxGrjPEy Uxbue5ptm2agyVt1ZmHeSTAevp UfvRecHUP5l6PcBe81K05cHXpa HZDkAAOuSMXwSMGgmOkgnw8v qX6xIo7+WPElyJP3nPH1cA1tMk LsEkU4URimP358BkIryIDdBjcv J27tO2IioOO+BSKlPdw4QXGn zLatHI4ewBHuTDllOr8nAGO1Lh BlNsPqWUrsM2JqAVCfcjvqexxc qLP7AIJnNVNywJ86Ye9zqBso Ly6tQCEoNRX5HTGwaEYgV2AliA 1hXnUhAPOtFGXkU1WdlLImXMjw R234XUjtBkR4ASYztbAkB6Sq CFRnrNtzCzZ8s6C9Yh5ItLxsqO HjMR3jWiMqWFt4K3GeTmu4KEKv hXdlWM3eeZCpYFdxZg4eyBrs bCawIN5mTDAbvwtro763ZdUxo2 poKUCdeELqKVceISQ1J43wi5M3 WNXoRVQjCUS0zAO8xX3dlSrc bjogbGVmdDsgdmVydGljYWwtYW bpV014SIStlNxwYmALOjs3O4Xx Xvt4YUThsWpaSJ3fgQTwUQib Ob9ieXrtxFaxLS7oTKCwqjany1 10OoUkh0eqTPFrmXYoIGrqDJD0 B59of4Z2HZHuETCfMMG0fFO8 uS2cfWtdubzeiHLdqYjqkjDrjU upMGubZGsbG200QRIcsDywPi2D Iwb9Q5CaOap7DGSdfGjjOK0n nDAgHYczDz9nmFbpgSqoTH1wAU Kwweepl113UmAvc4zjLDSpkUZq CRlpVGQ9P62sj3M1UEErOFAb TYR2rEG2gC2oyZyvpqwrjCZctC ihhwPviAyiOYijPQvaH336SFHt cDsnPlBheWVyOjwvdGQ+PC90 so06A2YfZoiwSly5SSLkNZI6uI X0aB0iOFIaWOoyh8B9iZA9T1Ne kcVywq3un4rsFEJbWYhxY68t [facility] (more content not included)... Normal [facility] ED Clinical Summaryon 2020 ED Clinical Summary [facility] ? Urgent Care [address] [place], [place] [id number] Clinical Summary PERSON INFORMATION Name: MARYSOL GARDNER Age: 56 Years Sex: FEMALE : 1965 MRN: Acct#: Visit Reason: Wrist laceration; LEFT WRIST LAC Arrival: 04/21/2021 17:52:39 Discharge: 04/21/2021 18:47:00 LOS: 000 00:55 Check In: 04/21/2021 17:52:39 Checkout: 04/21/2021 18:47:00 Address: [address] [place] [id number] PCP: Sandro Chin MD PROVIDER INFORMATION Provider Role Assigned Unassigned [...] PATIENT EDUCATION INFORMATION Instructions: Laceration Care, Adult, Rgul-mh-Ucco Follow-Up: With: Address: When: Sandro Chin [address] [place] [address], [place] [address] [facility] (1) Within 3 to 5 days Comments: Please follow-up with Dr. Chin, call the office schedule an appointment to be seen in 3 to 5 days for wound check, please take your Augmentin as prescribed, keep the wound clean, apply bacitracin and keep it covered, have sutures removed in 10 to 12 days from today, take xfuy-cov-qhgouly pain medication as needed, and return back to the urgent care center for any worsening symptoms, concerns, or complications. DIAGNOSIS: 1:Laceration of left wrist Patient Understands: Yes - Patient/family/caregiver verbalizes understanding of instructions given Comment: Normal [facility] ED Patient Summaryon 021 ED Patient Summary [facility] ? Urgent Care [address] [place] [address] PATIENT DISCHARGE INSTRUCTIONS Patient Information Name: MARYSOL GARDNER Age: 56 Years Date of : 1965 Reason For Visit: Wrist laceration; LEFT WRIST LAC Arrival Time: 04/21/2021 17:52:39 Primary Care Physician: Sandro Chin MD Attending Physician: Leo Art PA-C Comment: Patient Education With: Address: When: Sandro Chin [address] [place] [address] [place] [address] [facility] (1) Within 3 to 5 days Comments: Please follow-up with Dr. Chin, call the office schedule an appointment to be seen in 3 to 5 days for wound check, please take your Augmentin as prescribed, keep the wound clean, apply bacitracin and keep it covered, have sutures removed in 10 to 12 days from today, take jglo-qqr-sxcaoyc pain medication as needed, and return back [...] needed: ? Soap. ? Water. ? Hand medical record administrator. ? Bandage (dressing). ? Antibiotic ointment. ? Clean towel. How to take care of your cut Wash your hands with soap and water before touching your wound or changing your bandage. If soap and water are not available, use hand medical record administrator. If your doctor used stitches or yuridia: [...] off the skin. General instructions ? Take ibwm-hqf-ixaeexv and prescription medicines only as told by [...] by your doctor (more content not included)... [facility] Progress Note - Nurseon - Progress Note - Nurse sutured wound irma kristopher, bacitracin applied and a bandage, pt tolerated well [Electronically Signed on: 04/21/2021 18:57 EDT] Lauren Boyer [Verified on: 04/21/2021 18:57 EDT] Lauren Boyer [facility] [place] 021 Urgent Care Record [facility] ? Urgent Care [address] [place], [place] [id number] PATIENT DISCHARGE INSTRUCTIONS Patient Information Name: MARYSOL GARDNER Age: 56 Years Date of : 1965 [facility]: [id number] Reason For Visit: Wrist laceration; LEFT WRIST LAC Arrival Time: 04/21/2021 17:52:39 Primary Care Physician: Sandro Chin MD Attending Physician: Leo Art PA-C Comment: Visit Diagnosis: Diagnoses This Visit Laceration of left wrist (S61.512A) Wrist laceration ([id number]) If you received any narcotics, sedation, or [...] legal documents With: Address: When: Sandro Chin [address] [place] [address] [place] [id number] Business (1) Within 3 to 5 days Comments: Please follow-up with Dr. Chin, call the office schedule an appointment to be seen in 3 to 5 days for wound check, please take your Augmentin as prescribed, keep the wound clean, apply bacitracin and keep it covered, have sutures removed in 10 to 12 days from today, take oyar-ino-czjwohe pain medication as needed, and return back to the urgent care center for any worsening symptoms, concerns, or complications. Medication Information: The exam and treatment you received today in the [facility] were for an urgent problem and are not intended as complete care. It is important for you to follow up with a doctor, nurse practitioner, or physician?s assistant sales center manager for ongoing care. If your symptoms become [...] so we can reach you if necessary. [facility] has provided you with a complete list of medications post discharge. Please inform your primary care physician/provider of your visit and for further instruction on these medications. Any specific questions regarding your chronic medications and dosages should be discussed with your primary care physician(s) and/or pharmacist. New Medications [facility], [place] [id number], [phone] amoxicillin-clavulanate (Augmentin 875 mg-125 mg oral tablet) [...] needed: ? Soap. ? Water. ? Hand medical record administrator. ? Bandage (dressing). ? Antibiotic ointment. ? Clean towel. How to take care of your cut Wash your hands with soap and water before touching your wound or changing your bandage. If soap and water ar (more content not included)... Normal [facility] Vital Signs Date Time Vital Sign Value Performing Clinician Facility 12-21-2024 08:32-0400 Body mass index (BMI) [Ratio] 27.29 kg/m2 Constantino Martinez MD Work Phone: [facility] 12-21-2024 08:32-0400 Body weight 72.12 kg Constantino Martinez MD Work Phone: [facility] 12-21-2024 08:32-0400 Diastolic blood pressure 101 mm[Hg] Constantino Martinez MD Work Phone: [facility] 12-21-2024 08:32-0400 Heart rate 68 /min Constantino Martinez MD Work Phone: [facility] 12-21-2024 08:32-0400 Systolic blood pressure 148 mm[Hg] Constantino Martinez MD Work Phone: [facility] 12-14-2024 09:33-0400 Body height 162.56 cm [facility] 12-14-2024 09:33-0400 Body mass index (BMI) [Ratio] 27.6 kg/m2 [facility] 12-14-2024 09:33-0400 Body weight 73.08 kg [facility] 12-14-2024 09:33-0400 Diastolic blood pressure 87 mm[Hg] [facility] 12-14-2024 09:33-0400 Heart rate 58 /min [facility] 12-14-2024 09:33-0400 Systolic blood pressure 142 mm[Hg] [facility] 09-06-2024 12:58-0500 Body height 162.56 cm Clint Jean Baptiste DO Work Phone: [facility] 09-06-2024 12:58-0500 Body mass index (BMI) [Ratio] 28.8 kg/m2 Clint Alejandros DO Work Phone: [facility] 09-06-2024 12:58-0500 Body temperature 97.5 [degF] Clint Alejandros DO Work Phone: [facility] 09-06-2024 12:58-0500 Body weight 76.2 kg Clint Alejandros DO Work Phone: [facility] 09-06-2024 12:58-0500 Diastolic blood pressure 89 mm[Hg] Clint Jean Baptiste DO Work Phone: [facility] 09-06-2024 12:58-0500 Heart rate 58 /min Clint Jean Baptiste DO Work Phone: [facility] 09-06-2024 12:58-0500 Respiratory rate 16 /min Clint Jean Baptiste DO Work Phone: [facility] 09-06-2024 12:58-0500 SaO2% (BldA) [Mass fraction] 99 % Clint Jean Baptiste DO Work Phone: [facility] 09-06-2024 12:58-0500 Systolic blood pressure 139 mm[Hg] Clint Jean Baptiste DO Work Phone: [facility] 07-01-2024 10:59-0500 Body height 162.56 cm Clint Jean Baptiste DO Work Phone: [facility] 07-01-2024 10:59-0500 Body mass index (BMI) [Ratio] 28.8 kg/m2 Clint Alejandros DO Work Phone: [facility] 07-01-2024 10:59-0500 Body weight 76.2 kg Clint Jean Baptiste DO Work Phone: [facility] 07-01-2024 10:59-0500 Diastolic blood pressure 84 mm[Hg] Clint Jean Baptiste DO Work Phone: [facility] 07-01-2024 10:59-0500 Heart rate 64 /min Clint Jean Baptiste DO Work Phone: [facility] 07-01-2024 10:59-0500 Systolic blood pressure 138 mm[Hg] Clint Jean Baptiste DO Work Phone: [facility] 03-25-2024 11:29-0400 Body height 162.6 cm Masha Richardson LOSS PREVENTION CONSULTANT-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 Work Phone: [facility] 03-25-2024 11:29-0400 Body mass index (BMI) [Ratio] 27.5 kg/m2 Masha Richardson LOSS PREVENTION CONSULTANT-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 Work Phone: [facility] 03-25-2024 11:29-0400 Body weight 72.67 kg Masha Richardson LOSS PREVENTION CONSULTANT-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 Work Phone: [facility] 03-25-2024 11:29-0400 Diastolic blood pressure 60 mm[Hg] Masha Richardson LOSS PREVENTION CONSULTANT-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 Work Phone: [facility] [email or web address] [facility] 03-25-2024 11:29-0400 Heart rate 54 /min Masha Richardson LOSS PREVENTION CONSULTANT-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 Work Phone: [facility] [email or web address] [facility] 03-25-2024 11:29-0400 Systolic blood pressure 102 mm[Hg] Masha Richardson LOSS PREVENTION CONSULTANT-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 Work Phone: [facility] 03-15-2024 13:50-0400 Body height 162.6 cm Clint Jean Baptiste DO Work Phone: [facility] [email or web address] [facility] 03-15-2024 13:50-0400 Body mass index (BMI) [Ratio] 27.46 kg/m2 Clint Jean Baptiste DO Work Phone: [facility] 03-15-2024 13:50-0400 Body weight 72.58 kg Clint Jean Baptiste DO Work Phone: [facility] 03-03-2024 10:26-0400 Body height 162.6 cm Clint Jean Baptiste DO Work Phone: [facility] 03-03-2024 10:26-0400 Body mass index (BMI) [Ratio] 27.46 kg/m2 Clint Alejandros DO Work Phone: [facility] 03-03-2024 10:26-0400 Body weight 72.58 kg Clint Jean Baptiste DO Work Phone: [facility] 01-19-2024 11:22-040 Body height 162.56 cm DO Clint Alejandros Work Phone: [facility] 01-19-2024 11:22-0400 Body mass index (BMI) [Ratio] 28.8 kg/m2 DO Clint Alejandros Work Phone: [facility] 01-19-2024 11:22-0400 Body temperature 98 [degF] DO Clint Alejandros Work Phone: [facility] 01-19-2024 11:22-0400 Body weight 76.2 kg DO Clint Alejandros Work Phone: [facility] 01-19-2024 11:22-0400 Diastolic blood pressure 91 mm[Hg] DO Clint Alejandros Work Phone: [facility] 01-19-2024 11:22-0400 Heart rate 52 /min DO Clint Alejandros Work Phone: [facility] 01-19-2024 11:22-0400 Respiratory rate 18 /min DO Clint Alejandros Work Phone: [facility] 01-19-2024 11:22-0400 SaO2% (BldA) [Mass fraction] 99 % DO Clint Alejandros Work Phone: [facility] 01-19-2024 11:22-0400 Systolic blood pressure 138 mm[Hg] DO Clint Alejandros Work Phone: [facility] 11-17-2023 09:37-0400 Body height 162.56 cm DO Clint Flavias Work Phone: [facility] 11-17-2023 09:37-0400 Body mass index (BMI) [Ratio] 28.8 kg/m2 DO Clint Monicoillis Work Phone: [facility] 11-17-2023 09:37-0400 Body weight 76.2 kg DO Clint Flavias Work Phone: [facility] 11-17-2023 09:37-0400 Diastolic blood pressure 88 mm[Hg] DO Clint Monicoillis Work Phone: [facility] 11-17-2023 09:37-0400 Heart rate 60 /min DO Clint Monicoillis Work Phone: [facility] 11-17-2023 09:37-0400 Systolic blood pressure 136 mm[Hg] DO Clint Alejandros Work Phone: [facility] 09-26-2023 10:34-0400 Body height 162.56 cm DO Clint Alejandros Work Phone: [facility] 09-26-2023 10:34-0400 Body mass index (BMI) [Ratio] 28.8 kg/m2 DO Clint Monicoillis Work Phone: [facility] 09-26-2023 10:34-0400 Body weight 76.2 kg DO Clint Alejandros Work Phone: [facility] 09-26-2023 10:34-0400 Diastolic blood pressure 82 mm[Hg] DO Clint Monicoillis Work Phone: [facility] 09-26-2023 10:34-0400 Heart rate 63 /min DO Clint Monicoillis Work Phone: [facility] 09-26-2023 10:34-0400 Respiratory rate 18 /min DO Clint Monicoillis Work Phone: [facility] 09-26-2023 10:34-0400 SaO2% (BldA) [Mass fraction] 97 % DO Clint Alejandros Work Phone: [facility] 09-26-2023 10:34-0400 Systolic blood pressure 131 mm[Hg] DO Clint Flavias Work Phone: [facility] 06-25-2023 11:13-0500 Diastolic blood pressure 79 mm[Hg] DO Clint Alejandros Work Phone: [facility] 06-25-2023 11:13-0500 Heart rate 78 /min DO Clint Alejandros Work Phone: [facility] 06-25-2023 11:13-0500 Respiratory rate 20 /min DO Clint Alejandros Work Phone: [facility] 06-25-2023 11:13-0500 SaO2% (BldA) [Mass fraction] 98 % DO Clint Alejandros Work Phone: [facility] 06-25-2023 11:13-0500 Systolic blood pressure 142 mm[Hg] DO Clint Alejandros Work Phone: [facility] 05-19-2023 11:15-0500 Body height 162.56 cm Sandro Chin Other [employer] Other 05-19-2023 11:15-0500 Body mass index (BMI) [Ratio] 28.56 kg/m2 Sandro Chin Other [employer] Other 05-19-2023 11:15-0500 Body weight 75.48 kg Sandro Chin Other [employer] Other 05-19-2023 11:15-0500 Diastolic blood pressure 75 mm[Hg] Sandro Chin Other [employer] Other 05-19-2023 11:15-0500 Systolic blood pressure 109 mm[Hg] Sandro Chin Other [employer] Other 03-24-2023 10:41-0400 Body temperature 97.4 [degF] DO Clint Jean Baptiste Work Phone: [facility] 09-02-2022 08:36-0500 Body temperature 98 [degF] DO Isaías Adamowicz II Work Phone: [facility] 09-02-2022 08:36-0500 Body weight 76.6 kg DO Isaías Adamowicz II Work Phone: [facility] 09-02-2022 08:36-0500 Diastolic blood pressure 90 mm[Hg] DO Isaías Adamowicz II Work Phone: [facility] 09-02-2022 08:36-0500 Heart rate 65 /min DO Isaías Adamowicz II Work Phone: [facility] 09-02-2022 08:36-0500 Respiratory rate 20 /min DO Isaías Adamowicz II Work Phone: [facility] 09-02-2022 08:36-0500 SaO2% (BldA) [Mass fraction] 99 % DO Isaías Adamowicz II Work Phone: [facility] 09-02-2022 08:36-0500 Systolic blood pressure 147 mm[Hg] DO Isaías Adamowicz II Work Phone: [facility] 08-19-2022 08:43-0500 Body temperature 98.1 [degF] DO Isaías Adamowicz II Work Phone: [facility] 08-19-2022 08:43-0500 Body weight 74.9 kg DO Isaías Adamowicz II Work Phone: [facility] 08-19-2022 08:43-0500 Diastolic blood pressure 90 mm[Hg] DO Isaías Adamowicz II Work Phone: [facility] 08-19-2022 08:43-0500 Heart rate 60 /min DO Isaías Adamowicz II Work Phone: [facility] 08-19-2022 08:43-0500 Respiratory rate 20 /min DO Isaías Adamowicz II Work Phone: [facility] 08-19-2022 08:43-0500 SaO2% (BldA) [Mass fraction] 100 % DO Iasías Adamowicz II Work Phone: [facility] 08-19-2022 08:43-0500 Systolic blood pressure 143 mm[Hg] DO Isaías Adamowicz II Work Phone: [facility] 07-22-2022 09:43-0500 Body temperature 97.8 [degF] DO Isaías Adamowicz II Work Phone: [facility] 07-22-2022 09:43-0500 Body weight 75.7 kg DO Isaías Adamowicz II Work Phone: [facility] 07-22-2022 09:43-0500 Diastolic blood pressure 92 mm[Hg] DO Isaías Adamowicz II Work Phone: [facility] 07-22-2022 09:43-0500 Heart rate 67 /min DO Isaías Adamowicz II Work Phone: [facility] 07-22-2022 09:43-0500 Respiratory rate 16 /min DO Isaías Adamowicz II Work Phone: [facility] 07-22-2022 09:43-0500 SaO2% (BldA) [Mass fraction] 98 % DO Isaías Adamowicz II Work Phone: [facility] 07-22-2022 09:43-0500 Systolic blood pressure 149 mm[Hg] DO Isaías Adamowicz II Work Phone: [facility] 06-26-2022 12:23-0500 Body temperature 97.9 [degF] DO Clint Jean Baptiste Work Phone: [facility] 06-26-2022 12:23-0500 Diastolic blood pressure 79 mm[Hg] DO Clint Monicoillis Work Phone: [facility] 06-26-2022 12:23-0500 Heart rate 60 /min DO Clint Monicoillis Work Phone: [facility] 06-26-2022 12:23-0500 Respiratory rate 18 /min DO Clint Monicoillis Work Phone: [facility] [facility] 06-26-2022 12:23-0500 SaO2% (BldA) [Mass fraction] 97 % DO Clint Monicoillis Work Phone: [facility] 06-26-2022 12:23-0500 Systolic blood pressure 132 mm[Hg] DO Clint Monicoillis Work Phone: [facility] 06-24-2022 10:02-0500 Body weight 75 kg DO Clint Monicoillis Work Phone: [facility] 06-24-2022 09:08-0500 Body temperature 98 [degF] DO Clint Monicoillis Work Phone: [facility] 06-24-2022 09:08-0500 Body weight 75 kg DO Clint Monicoillis Work Phone: [facility] 06-24-2022 09:08-0500 Diastolic blood pressure 93 mm[Hg] DO Clint Monicoillis Work Phone: [facility] 06-24-2022 09:08-0500 Heart rate 61 /min DO Clint Monicoillis Work Phone: [facility] 06-24-2022 09:08-0500 Respiratory rate 16 /min DO Clint Monicoillis Work Phone: [facility] 06-24-2022 09:08-0500 SaO2% (BldA) [Mass fraction] 98 % DO Clint Monicoillis Work Phone: [facility] 06-24-2022 09:08-0500 Systolic blood pressure 137 mm[Hg] DO Clint Jean Baptiste Work Phone: [facility] 06-03-2022 08:08-0500 Body weight 74.1 kg DO Clint Jean Baptiste Work Phone: [facility] 06-03-2022 08:08-0500 Diastolic blood pressure 90 mm[Hg] DO Clint Jean Baptiste Work Phone: [facility] 06-03-2022 08:08-0500 Heart rate 56 /min DO Clint Jean Baptiste Work Phone: [facility] 06-03-2022 08:08-0500 Respiratory rate 20 /min DO Clint Jean Baptiste Work Phone: [facility] 06-03-2022 08:08-0500 SaO2% (BldA) [Mass fraction] 98 % DO Clint Jean Baptiste Work Phone: [facility] 06-03-2022 08:08-0500 Systolic blood pressure 137 mm[Hg] DO Clint Jean Baptiste Work Phone: [facility] 05-03-2022 14:40-0400 Body height 162.56 cm DO Clint Jean Baptiste Work Phone: [facility] Encounters Encounter Date Encounter Type Care Provider Facility Start: 12-21-2024 End: 12-21-2024 Bamboo flowsbrandie Martinez MD Work Phone: [facility] Start: 12-21-2024 End: 12-21-2024 Bamboo flowsheet Constantino Martinez MD Work Phone: [facility] Start: 12-21-2024 End: 12-21-2024 Office outpatient new 30 minutes Constantino Martinez MD Work Phone: [facility] Comment on above: Globus sensation (Pr imary Dx); LPRD (laryngopharyngeal reflux disease) Start: 12-21-2024 End: 12-21-2024 ambulatory CONSTANTINO MARTINEZ Not Available Start: 12-20-2024 End: 12-20-2024 ambulatory Sandro Chin Facility:[facility] Start: 12-20-2024 Encounter for gynecological examination (general) (routine) without abnormal findings Sandro Chin [facility] Physician [facility] Start: 12-14-2024 End: 12-14-2024 ambulatory [facility] Work Phone: Start: 12-14-2024 End: 12-14-2024 Patient encounter procedure [facility] Work Phone: Start: 09-06-2024 Registered Recurring Clint eaton DO Work Phone: [facility] Work Phone: Start: 09-06-2024 End: 09-06-2024 ambulatory Clint Jean Baptiste DO Work Phone: [facility] Work Phone: Start: 09-06-2024 End: 09-06-2024 Patient encounter procedure Clint Jean Baptiste DO Work Phone: [facility] Work Phone: Start: 08-24-2024 Non-patient / Non-visit Leroy Jean Baptiste DO Work Phone: [facility] Work Phone: Start: 07-01-2024 End: 07-01-2024 Patient encounter procedure Clint Jean Baptiste DO Work Phone: [facility] Work Phone: Start: 03-25-2024 End: 03-25-2024 ambulatory MASHA RICHARDSON [facility] Start: 03-25-2024 End: 03-25-2024 Postop follow up visit related to original px Masha Richardson LOSS PREVENTION 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-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 Work Phone: [facility] Comment on above: History of removal o f Port-a-Cath (Primary Dx); History of colon cancer Start: 03-15-2024 End: 03-15-2024 ambulatory CLINT Klever MCKINNONPAPA [facility] Start: 03-15-2024 End: 03-15-2024 Patient encounter procedure Clint Jean Baptiste DO Work Phone: [facility] Comment on above: History of colon can cer (Primary Dx) Start: 03-03-2024 End: 03-03-2024 ambulatory CLINT Klever ITA [facility] Start: 03-03-2024 End: 03-03-2024 Office outpatient visit 15 minutes Clint Klever Mnoicopapa DO Work Phone: [facility] Comment on above: History of colon can cer (Primary Dx) Start: 01-19-2024 End: 01-19-2024 ambulatory DO Clint Jean Baptiste Work Phone: [facility] Work Phone: Start: 01-19-2024 End: 01-19-2024 Patient encounter procedure DO Clint Jean Baptiste Work Phone: [facility] Work Phone: Start: 01-19-2024 Registered Recurring DO Zachcarla wiseman Flaviaignacio Work Phone: [facility] Work Phone: Start: 01-15-2024 Non-patient / Non-visit DO Sherwin reinoso Ita Work Phone: [facility] Physician [facility] Work Phone: Start: 11-26-2023 Non-patient / Non-visit DO Sherwin reinoso Flavias Work Phone: [facility] Work Phone: Start: 11-17-2023 Patient encounter status DO Araseli aguirre Monicodomingaignacio Work Phone: [facility] Start: 11-17-2023 End: 11-17-2023 ambulatory DO Clint Jean Baptiste Work Phone: [facility] Work Phone: Start: 11-17-2023 End: 11-17-2023 Patient encounter procedure DO Clint Jean Baptiste Work Phone: [facility] Phys[facility] Work Phone: Start: 09-26-2023 Registered Recurring DO Leroy Jean Baptiste Work Phone: [facility] Work Phone: Start: 09-26-2023 End: 09-26-2023 ambulatory DO Clint Jean Baptiste Work Phone: [facility] Work Phone: Start: 09-26-2023 End: 09-26-2023 Patient encounter procedure DO Clint Jean Baptiste Work Phone: [facility] Work Phone: Start: 09-18-2023 Non-patient / Non-visit DO Sherwin Jean Baptiste Work Phone: [facility] Work Phone: Start: 05-19-2023 End: 05-19-2023 ambulatory Sandro Chin Other [facility] Other Start: 05-19-2023 Office outpatient vi sit 15 minutes Sandro Chin [facility] Start: 11-16-2022 End: 11-17-2022 ambulatory ISAÍAS JORDAN Facility:[facility] Start: 11-02-2022 End: 11-03-2022 ambulatory ISAÍAS JORDAN Facility:[facility] Start: 10-19-2022 End: 10-20-[address] SANDRO CHIN Facility:[facility] Start: 09-14-2022 End: 09-15-2022 ambulatory ISAÍAS JORDAN Facility:[facility] Start: 09-02-2022 End: 09-02-2022 ambulatory NON STAFF [facility] Work Phone: Start: 09-02-2022 End: 09-02-2022 Registered Recurring DO Isaías Adamowicz II Work Phone: [facility] Work Phone: Start: 09-01-2022 End: 09-01-[address] SANDRO CHIN Facility:[facility] Start: 08-31-2022 End: 09-01-2022 ambulatory ISAÍAS JORDAN Facility:[facility] Start: 08-19-2022 End: 08-19-2022 ambulatory NON STAFF [facility] Work Phone: Start: 08-19-2022 End: 08-19-2022 Registered Recurring DO Isaías Jordan II Work Phone: [facility] Work Phone: Start: 08-16-2022 End: 08-17-2022 ambulatory ISAÍAS JORDAN Facility:[facility] Start: 08-03-2022 End: 08-04-2022 ambulatory ISAÍAS JORDAN Facility:[facility] Start: 07-22-2022 End: 07-22-2022 ambulatory NON STAFF [facility] Work Phone: Start: 07-22-2022 End: 07-22-2022 Registered Recurring DO Isaías Jordan II Work Phone: [facility] Work Phone: Start: 07-20-2022 End: 07-21-2022 ambulatory ISAÍAS JORDAN Facility:[facility] Start: 07-06-2022 End: 07-06-2022 ambulatory DO Clint Jean Baptiste Work Phone: [facility] Work Phone: Start: 07-06-2022 End: 07-06-2022 Departed Referred DO Clint Jean Baptiste Work Phone: [facility] [place] Work Phone: Start: 06-26-2022 Registered Recurring DO Leroy Jean Baptiste Work Phone: [facility] Work Phone: Start: 06-24-2022 End: 06-24-2022 ambulatory DO Clint Jean Baptiste Work Phone: [facility] Work Phone: Start: 06-24-2022 End: 06-24-2022 Registered Recurring DO Clint Jean Baptiste Work Phone: [facility] Start: 06-24-2022 End: 06-24-2022 ambulatory DO Clint Jean Baptiste Work Phone: [facility] Work Phone: Start: 06-24-2022 End: 06-24-2022 Registered Recurring DO Clint Jean Baptiste Work Phone: [facility] Start: 06-22-2022 End: 06-23-2022 ambulatory ISAÍAS JORDAN Facility:[facility] Start: 06-08-2022 End: 06-09-2022 ambulatory ISAÍAS JORDAN Facility:[facility] Start: 06-03-2022 End: 06-03-2022 ambulatory DO Clint Jean Baptiste Work Phone: [facility] Work Phone: Start: 06-03-2022 End: 06-03-2022 Registered Recurring DO Clint Jean Baptiste Work Phone: [facility] Start: 06-01-2022 End: 06-02-2022 ambulatory ISAÍAS JORDAN Facility:[facility] Start: 05-22-2022 End: 05-23-2022 ambulatory ISAÍAS JORDAN Facility:[facility] Start: 05-21-2022 Encounter for preprocedural laboratory examination DR CLINT JEAN BAPTISTE . [facility] Start: 05-18-2022 End: 05-19-[address] CLINT JEAN BAPTISTE . Facility:[facility] Start: 05-18-2022 End: 05-19-2022 Encounter for preprocedural laboratory examination DR CLINT JEAN BAPTISTE . Facility:[facility] Start: 04-10-2022 End: 04-13-2022 Evaluation and management of inpatient DR SANDRO CHIN Facility:[facility] Start: 04-08-2022 End: 04-09-[address] CLINT JEAN BAPTISTE . Facility:[facility] Start: 04-04-2022 Encounter for preprocedural cardiovascular examination DR CLINT JEAN BAPTISTE . [facility] Start: 04-04-2022 Encounter for preprocedural laboratory examination DR CLINT JEAN BAPTISTE . [facility] Start: 04-02-2022 End: [address] CLINT [...] 01-09-2022 End: 01-10-[address] SANDRO CHIN Facility:[facility] Procedures Date Procedure Procedure Detail Performing Clinician Start: 08-24-2024 Carcinoembryonic antigen cea Clint sullivan DO Work Phone: Comment on above: Nonsmokers <3.9 Smokers <5.6[employer] Electrochemiluminescence Immunoassay(ECLIA)Values obtained with different assay methods or kitscannot be used interchangeably. Results cannot beinterpreted as absolute evidence of the presence orabsence of malignant disease.Performed at: [facility] [address] [id number] Director: Edilson Saunders PhD, Phone: [phone] Start: 01-15-2024 Carcinoembryonic antigen cea DO Clint Jean Baptiste Work Phone: Comment on above: Nonsmokers <3.9 Smokers <5.6[employer] Electrochemiluminescence Immunoassay(ECLIA)Values obtained with different assay methods or kitscannot be used interchangeably. Results cannot beinterpreted as absolute evidence of the presence orabsence of malignant disease.Performed at: [facility] [id number] [place], [place] [id number] Director: Edilson Saunders PhD, Phone: [phone] Start: 09-18-2023 Carcinoembryonic antigen cea DO Clint Jean Baptiste Work Phone: Comment on above: Nonsmokers <3.9 Smokers <5.6[employer] Electrochemiluminescence Immunoassay(ECLIA)Values obtained with different assay methods or kitscannot be used interchangeably. Results cannot beinterpreted as absolute evidence of the presence orabsence of malignant disease.Performed at: [address] [id number] Director: Edilson Saunders PhD, Phone: [phone] Start: 05-07-2023 Colonoscopy Clint Jean Baptiste DO Work Phone: Start: 04-10-2022 Resection of Sigmoid Colon, Open Approach ISAÍAS JORDAN Plan of Treatment Date Care Activity Detail Author Start: 05-07-2033 Screening for malign ant neoplasm of colon [facility] Start: 05-07-2026 Screening for malign ant neoplasm of colon Colonoscopy [facility] Start: 03-15-2025 Adult BMI Screening Adult BMI Screen [facility] Start: 03-15-2025 Tobacco Screening Tobacco Screening [facility] Start: 03-03-2025 Adult BMI Screening Adult BMI Screen ing [facility] Start: 03-03-2025 Tobacco Screening Tobacco Screening [facility] Start: 12-21-2024 End: 12-21-2024 Patient encounter procedure 12/21/2024 8:40 AM EDT Office Visit [facility] [address] [facility] [address] [place] [address] Constantino Martinez MD [address] [facility] [address] [place] [address] Arrived [facility] Comment on above: Arrived Start: 12-14-2024 Patient referral [facility] Work Phone: Start: 03-25-2024 End: 03-25-2024 Patient encounter procedure 03/25/2024 11:00 AM EDT Office Visit [facility] [address] [place] [id number] Masha Rcihardson, LOSS PREVENTION CONSULTANT-JHON [address] [place], [place] [id number] [facility] Start: 03-15-2024 End: 03-15-2024 Patient encounter procedure 03/15/2024 1:30 PM EDT [facility] [address] [place] [id number] Clint Jean Baptiste DO [address] [place], [place] [id number] [facility] Start: 03-07-2024 COVID-19 Vaccine ( season) COVID-19 Vaccine ( season) [facility] Start: 03-07-2024 Influenza vaccination Influenza Vacc ine [facility] Start: 01-19-2024 Patient referral [facility] Work Phone: Start: 11-17-2023 Patient referral [facility] Work Phone: Start: 03-07-2023 COVID-19 Vaccine ( season) COVID-19 Vaccine () [facility] Start: 11-18-2022 [facility] Start: 11-18-2022 [facility] Start: 11-04-2022 [facility] Start: 10-21-2022 [facility] Start: 10-21-2022 [facility] Start: 10-21-2022 [facility] Start: 09-23-2022 [facility] Start: 09-23-2022 [facility] Start: 09-16-2022 [facility] Start: 09-02-2022 [facility] Start: 08-19-2022 [facility] Start: 08-19-2022 [facility] Start: 08-05-2022 [facility] Start: 07-22-2022 [facility] Start: 07-09-2022 [facility] Start: 06-26-2022 [facility] Start: 06-24-2022 [facility] Start: 06-10-2022 Comprehensive metabo lic 2000 panel - Serum or Plasma [facility] Start: 06-10-2022 Magnesium measurement [facility] Start: 06-10-2022 [facility] Start: 06-10-2022 [facility] Start: 06-03-2022 [facility] Start: 05-27-2022 [facility] Start: 2006 Screening for malign ant neoplasm of breast Mammogram [facility] Start: 1996 Screening for malign ant neoplasm of cervix [facility] Start: 1987 Screening for malign ant neoplasm of cervix Pap Smear [facility] Start: 1985 Administration of va ricella zoster vaccine Zoster (Shingles) Vaccine (1 of 2) [facility] Start: 1985 DTaP,Tdap and Td Vac cines (1 - Tdap) DTaP,Tdap and Td Vaccines (1 - Tdap) [facility] Start: 1984 Adult BMI Follow Up Plan Adult BMI Follow Up Plan [facility] Start: 1978 Depression Screening Depression Scre [facility] Start: 1966 Screening for malign ant neoplasm of colon [facility] Alanine aminotransfe rase [Enzymatic activity/volume] in Serum or Plasma by No addition of P-5'-P [facility] Work Phone: Alanine aminotransfe rase [Enzymatic activity/volume] in Serum or Plasma by No addition of P-5'-P [facility] Albumin [Mass/volume ] in Serum or Plasma [facility] Work Phone: Albumin [Mass/volume ] in Serum or Plasma [facility] Albumin/Globulin ratio [facility] Work Phone: Albumin/Globulin ratio [facility] Alkaline phosphatase [Enzymatic activity/volume] in Serum or Plasma [facility] Work Phone: Alkaline phosphatase [Enzymatic activity/volume] in Serum or Plasma [facility] Anion gap measurement [facility] Work Phone: Anion gap measurement [facility] Aspartate aminotrans ferase [Enzymatic activity/volume] in Serum or Plasma [facility] Work Phone: Aspartate aminotrans ferase [Enzymatic activity/volume] in Serum or Plasma [facility] Basophil count [facility] Work Phone: Basophil percent differential count [facility] Work Phone: Bilirubin.total [Mass/volume] in Serum or Plasma [facility] Work Phone: Bilirubin.total [Mass/volume] in Serum or Plasma [facility] Calcium [Mass/volume ] in Serum or Plasma [facility] Work Phone: Calcium [Mass/volume ] in Serum or Plasma [facility] Carbon dioxide, tota l [Moles/volume] in Serum or Plasma [facility] Work Phone: Carbon dioxide, tota l [Moles/volume] in Serum or Plasma [facility] Carcinoembryonic Ag [Mass/volume] in Serum or Plasma [facility] Chloride [Moles/volu me] in Serum or Plasma [facility] Work Phone: Chloride [Moles/volu me] in Serum or Plasma [facility] Choriogonadotropin ( test) [Presence] in Urine [facility] Comprehensive metabo lic 1999 panel - Serum or Plasma [facility] Comprehensive metabo lic 1999 panel - Serum or Plasma [facility] Comprehensive metabo lic 1999 panel - Serum or Plasma [facility] Comprehensive metabo lic 1999 panel - Serum or Plasma [facility] Comprehensive metabo lic 1999 panel - Serum or Plasma [facility] Comprehensive metabo lic 1999 panel - Serum or Plasma [facility] Comprehensive metabo lic 1999 panel - Serum or Plasma [facility] Comprehensive metabo lic 1999 panel - Serum or Plasma [facility] Comprehensive metabo lic 1999 panel - Serum or Plasma [facility] Comprehensive metabo lic 1999 panel - Serum or Plasma [facility] Comprehensive metabo lic 1999 panel - Serum or Plasma [facility] Comprehensive metabo lic 1999 panel - Serum or Plasma [facility] Comprehensive metabo lic 1999 panel - Serum or Plasma [facility] Creatinine and Glome rular filtration rate.predicted panel - Serum, Plasma or Blood [facility] Work Phone: Creatinine and Glome rular filtration rate.predicted panel - Serum, Plasma or Blood [facility] CT Abdomen and Pelvi s W contrast IV [facility] CT Abdomen and Pelvi s W contrast IV [facility] CT Abdomen and Pelvi s W contrast IV [facility] CT Abdomen and Pelvi s W contrast IV [facility] CT Abdomen and Pelvi s W contrast IV [facility] CT Abdomen and Pelvi s W contrast IV [facility] CT Chest W contrast IV [facility] CT Chest W contrast IV [facility] CT Chest W contrast IV [facility] CT Chest W contrast IV [facility] CT Chest W contrast IV [facility] CT Chest W contrast IV [facility] Eosinophil percent differential count [facility] Work Phone: Eosinophils [#/volum e] in Blood [facility] Work Phone: Erythrocyte mean cor puscular volume determination [facility] Work Phone: Erythrocytes [#/volu me] in Blood [facility] Work Phone: Globulin [Mass/volum e] in Serum [facility] Work Phone: Globulin [Mass/volum e] in Serum [facility] Glucose [Mass/volume ] in Serum or Plasma [facility] Work Phone: Glucose [Mass/volume ] in Serum or Plasma [facility] Hematocrit [Volume F raction] of Blood [facility] Work Phone: Hemoglobin [Mass/vol ume] in Blood [facility] Work Phone: Hemoglobin distribut ion, width determination [facility] Work Phone: Leukocytes [#/volume ] in Blood [facility] Work Phone: Lymphocyte count [facility] Work Phone: Lymphocyte percent differential count [facility] Work Phone: Magnesium measurement [facility] Magnesium measurement [facility] Magnesium measurement [facility] Mean corpuscular hem oglobin concentration determination [facility] Work Phone: Mean corpuscular hem oglobin determination [facility] Work Phone: Measurement of renal function [facility] Work Phone: Measurement of renal function [facility] Monocyte count [facility] Work Phone: Monocyte percent differential count [facility] Work Phone: Neutrophil count [facility] Work Phone: Neutrophil percent differential count [facility] Work Phone: Patient referral [facility] Work Phone: Platelet mean volume determination [facility] Work Phone: Platelets [#/volume] in Blood [facility] Work Phone: Potassium [Moles/vol ume] in Serum or Plasma [facility] Work Phone: Potassium [Moles/vol ume] in Serum or Plasma [facility] [facility] Protein [Mass/volume ] in Serum or Plasma [facility] Work Phone: Protein [Mass/volume ] in Serum or Plasma [facility] Sodium [Moles/volume ] in Serum or Plasma [facility] Work Phone: Sodium [Moles/volume ] in Serum or Plasma [facility] Urea nitrogen [Mass/ volume] in Serum or Plasma [facility] Work Phone: Urea nitrogen [Mass/ volume] in Serum or Plasma [facility] Medical [facility] Payers Date Payer Category Payer [facility] BCBS [id number] 2022 Unknown KAYLEY NARAYANAN SS (O) [id number] 2022-Present [id number] [place] [id number]. [id number] 2022 Self-pay 2022 Unknown [id number] 2019 Unknown [id number] 1966 Unknown [id number] 2.16.840.1.600793.3.579.2. 593 1966 Unknown [id number] 2.16.840.1.640633.3.579.2. 593 1966 Unknown [id number] 2.16.840.1.246459.3.579.2. 593 1966 Unknown [id number] 2.16.840.1.324887.3.579.2. 593 1966 Unknown [id number] 2.16.840.1.005837.3.579.2. 593 1966 Unknown [id number] 2.16.840.1.383834.3.579.2. 593 1966 Unknown [id number] 2.16.840.1.147737.3.579.2. 593 1966 Unknown [id number] 2.16.840.1.084900.3.579.2. 593 1966 Unknown [id number] 2.16.840.1.522519.3.579.2. 593 1966 Unknown [id number] 2.16.840.1.245060.3.579.2. 593 1966 Unknown [id number] 2.16.840.1.328193.3.579.2. 593 1966 Unknown [id number] 2.16.840.1.098275.3.579.2. 593 1966 Unknown [id number] 2.16.840.1.626894.3.579.2. 593 1966 Unknown [id number] 2.16.840.1.147851.3.579.2. 593 1966 Unknown [id number] 2.16.840.1.997818.3.579.2. 593 1966 Unknown [id number] 2.16.840.1.431880.3.579.2. 593 1966 Unknown [id number] 2.16.840.1.177964.3.579.2. 593 1966 Unknown [id number] 2.16.840.1.369727.3.579.2. 593 1966 Unknown [id number] 2.16.840.1.174393.3.579.2. 593 1966 Unknown [id number] 2.16.840.1.067875.3.579.2. 593 1966 Unknown [id number] 2.16.840.1.465755.3.579.2. 593 1966 Unknown [id number] 2.16.840.1.299973.3.579.2. 593 1966 Unknown [id number] 2.16.840.1.209407.3.579.2. 593 1966 Unknown [id number] 2.16.840.1.148463.3.579.2. 593 1966 Unknown [id number] 2.16.840.1.662588.3.579.2. 1286 1966 Unknown [id number] 2.16.840.1.008244.3.579.2. 1286 1966 Unknown [id number] 2.16.840.1.318752.3.579.2. 1286 1966 Unknown [id number] 2.16.840.1.956506.3.579.2. 1259 Unknown [id number] Unknown [id number] 2.16.840.1.791109.3.579.2. 531 Unknown [id number] 2.16.840.1.340546.3.579.2. 531 Social History Date Type Detail Facility Start: 05-27-2022 End: 12-21-2024 Tobacco smoking status NHIS Never smoked tobacco (finding) [facility] Start: 1965 Sex Assigned At Female [facility] Start: 03-03-2024 End: 12-21-2024 Sex Assigned At [facility] Other Start: 04-19-2022 Tobacco smoking status NHIS Ex-smoker [facility] History of tobacco use Current smoker [facility] History of tobacco use Cigarette Smoker [facility] Start: 04-19-2022 End: 12-21-2024 Tobacco use and exposure Smokeless tobacco non-user [facility] Start: 03-03-2024 End: 12-21-2024 Alcoholic beverage intake Current drinker of alcohol (finding) [facility] Start: 03-03-2024 End: 12-21-2024 History of Social function [facility] Within the past 12 months we worried whether our food would run out before we got money to buy more. Never True [facility] Start: 04-19-2022 Tobacco Comment smoked when patient was 18 for 6 months [facility] Start: 05-01-2023 Alcohol Comment occasionally [facility] [email or web address] [facility] Start: 1965 Sex assigned at Not on file [facility] Start: 09-06-2024 End: 12-14-2024 Sex Female (finding) [facility] Tobacco smoking status AZIS Tobacco smoking consumption unknown [facility] Start: 12-21-2024 Alcohol Comment occ [facility] Goals Date Patient Goal Desired Activity /State Clinical Notes 04-21-2021 to 12-21-2024 Constantino Martinez MD - 12/21/2024 8:40 AM EDT Note Date & Type Note Facility 12-21-2024 History of Presen t illness Narrative Subjective Patient ID: Shasta Gardner is a 59 y.o. female who presents for Allergic Rhinitis Pt reports a FB sensation in the throat four 4-5 weeks. Started with getting lettuce in throat. H/O GERD. Takes PPI. Takes 1 hour before breakfast. [...] gland hypertrophy 12/20/2024 Situational anxiety 12/20/2024 bleeding ([facility] 05/15/2022 Resolved Ambulatory Problems Diagnosis Date Noted [...] regimen a bit and recheck in 4 weeks if no improvement. documented in this encounter [facility] 07-01-2024 Evaluation note Diagnosis Onset Date Resolution Osteoarthritis acute June 072023 10:57am Situational anxiety acute Decem rachid 2023 10:57am Abnormal LFTs acute September 06, 2024 1:19pm Chemotherapy-induced peripheral neuropathy acute September 06, 2024 1:19pm Colon cancer acute September 06, 025 1:19pm Encounter for chemotherapy management acute September 1:19pm [facility] Work Phone: 1(131) 941-505509-19-2024 History of Present illness Narrative* RAEGAN Taylor - 03/25/2024 11:00 AM EDT Subjective Marysol Gardner is a 58 y.o. female status post excision of left anterior chest port on 03/15/2024. She denies fever, chills, drainage. She has no concerns. Objective Vitals: 03/25/24 1129 BP: 102/60 Pulse: 54 Physical Exam Skin: General: Skin is warm and dry. Findings: No bruising or erythema. Comments: Left chest incision clean, dry and intact. No signs of infection. Sutures removed and Steri-Strips placed. Assessment Marysol Gardner is a 58 y.o.female postop excision of chest port. Plan Follow-up as needed. History of removal of Port-a-Cath [Z98.890] [facility] TAYLOR [facility] [place] This note was created with the assistance of a speech recognition program. While intending to generate a timely document that accurately reflects the content of the visit, no guarantee can be provided that every grammatical or spelling mistake has been or will be identified or corrected. Thank you for your understanding. RAEGAN Taylor 03/25/24 1143 [facility] History of Present illness Narrative* Clint Jean Baptiste DO - 03/15/2024 1:30 PM EDT Patient presents for removal of port left anterior chest wall. Informed consent was obtained from the patient and risks benefits alternatives to the procedure explained to her. The left chest wall was prepped and draped usual sterile fashion. 1% xylocaine with epinephrine wasused anesthetize the area locally. Transverse incision was made over the old incision and the catheter was removed from the left subclavian vein and pressure was placed for 5 minutes. Then the port was extruded from the chest wall. Hemostasis being maintained the wound was closed with 3-0 Vicryl suture in interrupted fashion the skin was closed with 3-0 nylon suture in interrupted fashion. Sterile dressing was placed. Routine wound care precautions given. Tylenol or ice p.r.n. pain. Follow up in 10 days to 2 weeks for suture removal. [facility] History of Present illness Narrative* Clint Jean Baptiste DO - 03/03/2024 10:15 AM EDT Images from the original note were not included. [facility] [id number] Progress NOTE CHIEF COMPLAINT Chief Complaint Patient [...] by me April 10, 2022 at the [facility]. Her last colonoscopy was in May, and was normal. 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 MEDICATION Current Outpatient Medications: brimonidine (ALPHAGAN) 0.2 [...] by mouth daily., Disp: , Rfl: omega 1-ack-ple-fish oil (Fish OiL) 300-1,000 mg capsule, Take by mouth., Disp: , Rfl: omeprazole (PriLOSEC) 20 mg capsule, PATIENT REPORTS NEEDED , Disp: , Rfl: ALLERGY Allergies Allergen Reactions Hydrocodone Nausea And Vomiting Patient reports it was many years ago Codeine GI Disturbance MEDICAL HISTORY Past Medical History: Diagnosis Date Colon cancer ([facility] Female pelvic congestion syndrome 02/20/2023 Glaucoma of both eyes bleeding SURGICAL HISTORY Past Surgical History: Procedure Laterality Date SECTION HERNIA REPAIR inguinal hernia LEFT COLECTOMY SIGMOID COLON RESECTION BY DR JEAN BAPTISTE, AT [facility] WISDOM TOOTH EXTRACTION SOCIAL HISTORY Social [...] patient/family/caregiver Referring and communicating with other health ocular care aide History of colon cancer [Z85.038] Clint Jean Baptiste, This note was created with the assistance of a speech recognition program. While intending to generate a timely document that accurately reflects the content of the visit, no guarantee can be provided that every grammatical or spelling mistake has been or will be identified or corrected. Thank you for your understanding. [facility] Evaluation note* Encounter Date Diagnosis Assessment Notes Treatment Notes Treatment Clinical Notes May, Acute sinusitis, unspecified (ICD-10 - [...] for PT printed and given to pt. [employer] Other 09-18-2023 Progress note Author Isaías Jordan [facility] March 24, 2023 11:05am Note Date/Time March 24, 2023 10:55am [facility] at [address] [address] Hem/Onc Follow Up Note - OP Signed Patient: Marysol Gardner MR#: [id number] : 1965 Acct:[id number] Age/Sex: 57 / F Type: REG RCR Copies to: MD Clint Bernstein DO~ Date of Service: 03/24/2023 Time of Service: [...] Up Instructions: ct c/a/p with contrast in . cbc, cmp, cea prior to f/u. f/u with me or orthopedic physical therapist in may/jun. renew her celebrex prescription. - History of Present Illness Chief Complaint: Patient is here for a 5 month follow up with labs and outside notes and radiology for review. 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 Labs reviewed on patient's chart from [facility] - no significant cytopenias or electrolyte, renal/hepatic [...] from visiting her mother and family in [place]. She has no neuropathy at all. last [...] Also engorged periuterine vessels. She has seen unit secretary. she had transvaginal ultrasound. This will be monitored. Her HONEY BLENDER has offered her a dexa scan. Her [...] for coordination of care (as documented) and cxoy-xr-jltl counseling of patient and/or family. [facility] - Medical History Medical History: Medical History [...] % (Auto) 47.6, Lymph % (Auto) 39.4, Cuming % (Auto) 9.0, Eos % (Auto) 2.8, Baso % (Auto) 1.2, Nucleat RBC Rel Count 0.1, Neut # (Auto) 2.4, Lymph # (Auto) 2.0, Cuming # (Auto) 0.5, Eos # (Auto) 0.1, [...] by Isaías Jordan II, DO> 03/24/23 1105 [facility] Work Phone: 1(875) 971-113104-17-2023 Progress note Author Isaías Jordan [facility] October 21, 2022 8:50am Note Date/Time October 21, 2022 8:3 8am [facility] [place] [address] Hem/Onc Follow Up Note - OP Signed Patient: Marysol Gardner MR#: [id number] : 1965 Acct:[id number] Age/Sex: 57 / F Type: REG RCR Copies to: MD Clint Bernstein,~ Date of Service: 10/21/2022 Time of Service: [...] 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 Labs reviewed on patient's chart from [facility] - no significant cytopenias or electrolyte, renal/hepatic [...] for coordination of care (as documented) and nogc-bf-bccr counseling of patient and/or family. [facility] - Medical History Medical History: Medical History [...] by Isaías Jordan II, DO> 10/21/22 0850 [facility] Work Phone: 1(900) 599-493102-27-2023 Progress note Author Isaías Jordan [facility] September 02, 2022 9:09am Note Date/Time September 02, 2022 8:58am [facility] at [address] [address] Hem/Onc Follow Up Note - OP Signed Patient: Marysol Gardner MR#: [id number] : 1965 Acct:[id number] Age/Sex: 57 / F Type: REG RCR [...] 4 or 6 weeks with me or orthopedic physical therapist. - History of Present Illness Chief Complaint: Patient is here for a 2 week follow up with outside labs for review, prior to treatment today. States she is feeling remarkably better. 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 Labs reviewed on patient's chart from [facility] - no significant cytopenias or electrolyte, renal/hepatic [...] for coordination of care (as documented) and dfyo-ck-rnvy counseling of patient and/or family. [facility] - Medical History Medical History: Medical History [...] by Isaías Jordan II, DO> 09/02/22 0909 [facility] Work Phone: 1(687) 831-372202-13-2023 Hospital Discharge instructionsAmbulatory Orders* Proceed with Treatment Time Frame: 08/19/22, Location: Determined By Patient [facility] Work Phone: 1([phone]) 753-207502-13-2023 Hospital Discharge instructionsAmbulatory Orders* Proceed with Treatment Time Frame: 08/19/22, Location: Determined By Patient * Proceed with Treatment Time Frame: 09/02/22, Location: Determined By Patient * RISE Order Time Frame: 1 Week, Location: Determined By Patient [facility] Work Phone: 1(982) 567-130902-13-2023 Progress note Author Dayan Balderramamaple [facility] hospital[facility] August 19, 2022 11:20am Note Date/Time August 19, 2022 11:14am [facility] [place] [address] Hem/Onc Follow Up Note - OP Signed Patient: Marysol Gardner MR#: [id number] : 1965 Acct:[id number] Age/Sex: 57 / F Type: REG RCR Copies to: MD Clint Bernstein,~ Subjective Date/Time of Service: Date of Service: 08/19/2022 Time of Service: 11:12 Chief Complaint: Patient is here for a 1 month follow up with labs for review, prior to treatment today. No concerns voiced. 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 Labs reviewed on patient's chart from [facility] - no significant cytopenias or electrolyte, renal/hepatic [...] 10 point review of systems is negative. [facility] - Medical History Medical History: Medical History [...] for coordination of care (as documented) and olro-oh-qkpw counseling of patient and/or family. Dictated By: Dayan Magallon APRN DD/ 1112 Signed By: <Electronically signed by OLIVIA Dayan Magallon> 08/19/22 1120 [facility] Work Phone: 1(661) 293-722101-16-2023 Progress note Author Dayan Lrbeverly [facility] July 22, 2022 11:46am Note Date/Time July 22, 2022 1 1:36am [facility] [place] [address] Hem/Onc Follow Up Note - OP Signed Patient: Marysol Gardner MR#: [id number] : 1965 Acct:[id number] Age/Sex: 57 / F Type: REG RCR Copies to: MD Clint Bernstein,DO~ Subjective Date/Time of Service: Date of Service: 07/22/2022 Time of Service: 11:34 Chief Complaint: Patient is here today for a one month follow up visit for coloncancer and go over labs. 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 Labs reviewed on patient's chart from [facility] - no significant cytopenias or electrolyte, renal/hepatic [...] 10 point review of systems is negative. [facility] - Medical History Medical History: Medical History [...] Medications & Allergies Allergies hydrocodone Allergy (Verified 01/16/23 09:43) Nausea Home Medications brimonidine 0.2 % [...] for coordination of care (as documented) and gpqw-ty-mixo counseling of patient and/or family. Dictated By: Dayan Magallon APRN DD/ 1134 Signed By: <Electronically signed by OLIVIA Magallon> 07/22/22 1146 [facility] Work Phone: 1(864) 949-486012-19-2022 Progress note Author Isaías Jordan [facility] June 24, 2022 9:49am Note Date/Time June 24, 2022 9:42am [facility] at [address] [address] Hem/Onc Follow Up Note - OP Signed Patient: Marysol Gardner MR#: [id number] : 1965 Acct:[id number] Age/Sex: 57 / F Type: REG RCR [...] cotn folfox q2wks. f/u with me or orthopedic physical therapist in a month. cbc, cmp on treatemet days. cea prior to f/u. 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 Labs reviewed on patient's chart from [facility] - no significant cytopenias or electrolyte, renal/hepatic [...] for coordination of care (as documented) and ljef-io-gmsl counseling of patient and/or family. 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 Labs reviewed on patient's chart from [facility] - no significant cytopenias or electrolyte, renal/hepatic issues. - Summary of Therapies Summary of Therapies: FOLFOX chemotherapy (adjuvant) 1. Cycle 1, Day 1: 05/27/2022 Subjective/ROS - Narrative: As per the HPI, otherwise 10 point review of systems is negative. 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 - plan Cycle 2, [...] for coordination of care (as documented) and aczv-na-dard counseling of patient and/or family. 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 She began having irregular bowel [...] 13, 2022, scope could not be passed [id number] cm due to a tumor in the [...] for coordination of care (as documented) and pysm-rl-bwmi counseling of patient and/or family. 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 She began having irregular bowel [...] for coordination of care (as documented) and mtqg-pu-llik counseling of patient and/or family. [facility] - Medical History Medical History: Medical History [...] signed by Isaías Jordan II, DO> 05/03/22 1528 [facility] Work Phone: 1([phone]) 173-201210-01-2022 History general Narrative - Reported* Type Description Date Medical History Colon cancer Medical History Pelvic congestion syndrome Surgical History Bowel resection 04/2022 Surgical History C -Section 2005 Surgical History Hernia repair 2001 Surgical History [place] teeth [employer] Other 09-07-2022 NoteOPERATIVE NOTE OPERATION DATE: 03/13/2022 REFERRING PHYSICIAN: Snadro Chin M.D. SURGEON: Clitn Jean Baptiste D.O. ANESTHESIA: Propofol by anesthesiologist [...] the abdomen and pelvis performed at the [facility], January 09, which was read as normal. [...] diagnosis, then she will need surgical therapy.[facility] [id number] NotePatient Education Materials Follows: Laceration Care, Adult A laceration is a cut that may go through all layers of the skin. The cut may also go into the tissue that is right under the skin. Some cuts heal on their own. Others need to be closed with stitches(sutures), yuriida, skin adhesive strips, or skin glue. Taking care of your injury lowers your riskof infection, helps your injury to heal better, and may prevent scarring. Supplies needed: ? Soap. ? Water. ? Hand medical record administrator. ? Bandage (dressing). ? Antibiotic ointment. ? Clean towel. How to take care of your cut Wash your hands with soap and water before touching your wound or changing your bandage. If soap and water are not available, use hand medical record administrator. If your doctor used stitches or yuridia: [...] off the skin. General instructions ? Take rehp-cab-asycvgc and prescription medicines only as told by [...] anywhere on your body. (more content not included)...[facility] complaint+Reason for visit Narrative* Chief Complaint Admit Date Sore Throat/ENT Referral December 14, 2024 9:27am Reason for Visit Admit Date Pharyngitis, chronic December 14, 2024 9:2 7am [facility] Work Phone: Evaluation note* Diagnosis Onset Date Resolution Status Colon cancer acute Encounter for chemotherapy management acute [facility] Work Phone: Evaluation note* Diagnosis Onset Date Resolution Status Abnormal LFTs acute Chemotherapy-induced peripheral neuropathy acute Colon cancer acute Encounter for chemotherapy management acute [facility] Work Phone: Evaluation noteNo assessment information available [facility] Work Phone: Evaluation note* Diagnosis Onset Date Resolution Status Colon cancer acute Abnormal LFTs acute Chemotherapy-induced peripheral neuropathy acute Colon cancer acute Encounter for chemotherapy management acute Salivary gland hypertrophy a cute [facility] Work Phone: evaluation note* Diagnosis Onset Date Resolution Status Salivary gland hypertrophy a cute Abnormal LFTs acute Chemotherapy-induced peripheral neuropathy acute Colon cancer acute Encounter for chemotherapy management acute [facility] Work Phone: Evaluation note* Diagnosis History of colon cancer- Primary Personal history of malignant neoplasm of large intestine [facility] Diagnosis History of colon cancer- Primary Personal history of malignant neoplasm of large intestine [facility] Diagnosis History of removal of Holr-b-Jgsc- Primary History of colon cancer Personal history of malignant neoplasm of large intestine documented in this encounter [facility] Diagnosis Onset Date Resolution Status Admit Date Pharyngitis, chronic acute December 14, 2024 9:27am [facility] Work Phone: Evaluation note* Diagnosis Globus sensation- Primary Gastrointestinal malfunction arising from mental factors LPRD (laryngopharyngeal reflux disease) Acute laryngitis, without mention of obstruction [facility] Proceed with Treatment Time Frame: 08/19/22, Location: Determined By Patient [facility] Work Phone: Hospital Discharge instructionsAmbulatory Orders* Referral to ENT Time Frame: 11/17/23, Location: None Selected [facility] Work Phone: Hospital Discharge instructionsAmbulatory Orders* Referral to ENT Time Frame: 12/14/24, Location: None Selected [facility] Work Phone: InstructionsNot on filedocumented in this encounter [facility] filedocumented in this encounter [facility] on filedocumented in this encounter [facility] Author Dayan Magallon [facility] June 03, 2022 8:41am Note Date/Time June 03, 2022 8:14am [facility] [place] [address] Hem/Onc Follow Up Note - OP Signed Patient: Marysol Gardner MR#: [id number] : 1965 Acct:[id number] Age/Sex: 57 / F Type: REG RCR [...] 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 Labs reviewed on patient's chart from [facility] - no significant cytopenias or electrolyte, renal/hepatic issues. - Summary of Therapies Summary of Therapies: FOLFOX chemotherapy (adjuvant) 1. Cycle 1, Day 1: 05/27/2022 Subjective/ROS - Narrative: As per the HPI, otherwise 10 point review of systems is negative. 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 - plan Cycle 2, [...] for coordination of care (as documented) and duct-xy-hsjj counseling of patient and/or family. Dictated By: Dayan Magallon APRN DD/ 3 Signed By: <Electronically signed by OLIVIA Magallon> 06/03/22840 [facility] Work Phone: Progress note Author Isaías Jordan [facility] June 24, 2022 9:49am Note Date/Time June 24, 2022 9:42am [facility] [place] [address] Hem/Onc Follow Up Note - OP Signed Patient: Marysol Gardner MR#: [id number] : 1965 Acct:[id number] Age/Sex: 57 / F Type: REG RCR [...] cotn folfox q2wks. f/u with me or orthopedic physical therapist in a month. cbc, cmp on treatemet days. cea prior to f/u. 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 Labs reviewed on patient's chart from [facility] - no significant cytopenias or electrolyte, renal/hepatic [...] for coordination of care (as documented) and vydc-zc-ilap counseling of patient and/or family. [facility] - Medical History Medical History: Medical History [...] by Isaías Jordan II, DO> 06/24/22 0949 [facility] Work Phone: Progress note [facility] July 22, 2022 11:46am Note Date/Time July 22, 2022 1 1:36am [facility] [place] [address] Hem/Onc Follow Up Note - OP Signed Patient: Marysol Gardner MR#: [id number] : 1965 Acct:[id number] Age/Sex: 57 / F Type: REG RCR Copies to: MD Clint Bernstein DO~ Subjective Date/Time of Service: Date of Service: 07/22/2022 Time of Service: 11:34 Chief Complaint: Patient is here today for a one month follow up visit for coloncancer and go over labs. 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 Labs reviewed on patient's chart from [place] [facility] - no significant cytopenias or electrolyte, renal/hepatic [...] 10 point review of systems is negative. PMF - Medical History Medical History: Medical History [...] for coordination of care (as documented) and iakf-hp-jjsq counseling of patient and/or family. Dictated By: Dayan Magallon APRN DD/ 1134 Signed By: <Electronically signed by OLIVIA Magallon> 07/22/22 1146 [facility] Work Phone: Progress note Author Isaías Jordan [facility] September 02, 2022 9:09am Note Date/Time September 02, 2022 8:58am [facility] [place] [address] Hem/Onc Follow Up Note - OP Signed Patient: Marysol Gardner MR#: [id number] : 1965 Acct:[id number] Age/Sex: 57 / F Type: REG RCR Copies to: MD Clint Bersntein,FRAN Date of Service: 09/02/2022 Time of Service: [...] 4 or 6 weeks with me or orthopedic physical therapist. - History of Present Illness Chief Complaint: Patient is here for a 2 week follow up with outside labs for review, prior to treatment today. States she is feeling remarkably better. 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 Labs reviewed on patient's chart from [facility] - no significant cytopenias or electrolyte, renal/hepatic [...] for coordination of care (as documented) and gvni-fj-thbt counseling of patient and/or family. [facility] - Medical History Medical History: Medical History [...] by Isaías Jordan II, DO> 09/02/22 0909 [facility] Work Phone: Progress note Author Isaías Jordan [facility] January 19, 2024 12:05pm Note Date/Time January 19, 2024 11:[address] [place] [address] [place] [address] Cancer Center Note Signed Patient: Marysol Gardner MR#: [id number] : 1965 Acct:[id number] Age/Sex: 58 / F Type: REG AMB Date of Service: 01/19/24 Copies to: Sandro Chin MD~ Assessment & Plan A/P Patient Instructions: ct c/a/p with contrast in 6 months and f/u after. cbc, cmp, cea prior to contrast. refer for port removal. 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 Labs reviewed on patient's chart from [facility] - no significant cytopenias or electrolyte, renal/hepatic [...] from visiting her mother and family in [place]. She has no neuropathy at all. last [...] Also engorged periuterine vessels. She has seen unit secretary. she had transvaginal ultrasound. This will be monitored. Her HONEY BLENDER has offered her a dexa scan. Her [...] january with no evidence recurrence. done at [place]. Intake Vitals/Pain Assessment 01/19/24 11:22 Height 5 [...] latanoprost 0.005% 1 drp Eye-Both QPM omega 5-jwq-gqy-fish oil 300-1,000 mg (Fish Oil) 1 cap [...] No concerns voiced at time of intake. [facility] History Attestation statement: The following information was validated with the patient. Medical History Medical History delivery delivered Colon cancer Cancer (03/26/22) COVID bleeding Glaucoma of both eyes Surgical History Surgical History Cow[place] teeth extracted S/P hernia repair History of [...] by Isaías Jordan II, DO> 01/19/24 1205 [facility] Work Phone: Summary Purpose Family History No Family History Records Found Relationship Condition Age at Onset Recorded Date/T [...] mellitus Unknown sister Hypertension Unknown Advance Directives No Advanced Directives Records Found Advance Directive Response Recorded Date/ Time Advance [...] cancer Encounter for chemotherapy management Chief Complaint Admit Date emotional issues would like to discuss D ecember 2023 10:57am Follow Up after CT September 06, 2024 12:5 3pm Colon Cancer September 06, 2024 1:19 pm Reason for Visit Admit Date Osteoarthritis July 01, 2024 10:57am Situational anxiety July 01, 2024 10:57am Abnormal LFTs September 06, 2024 1:19 pm Chemotherapy-induced peripheral neuropat hy September 06, 2024 1:19pm Colon cancer September 06, 2024 1:19 pm Encounter for chemotherapy management [facility] 2024 1:19pm Additional Source Comments INFORMATION SOURCE (unrecogn ized section and content) DATE CREATED AUTHOR 05/02/2021 [facility] DATE CREATED AUTHOR AUTHOR'S ORGANIZ ATION 11/17/2022 [facility] DATE CREATED AUTHOR AUTHOR'S ORGANIZ ATION 03/27/2024 [facility] DATE CREATED AUTHOR AUTHOR'S ORGANIZ ATION 12/23/2024 [facility] DATE CREATED AUTHOR AUTHOR'S ORGANIZ ATION 12/23/2024 [facility] EPIC Care Teams (unrecognized sec tion and content) [...] tart: January 19, 2024 Clint Jean Baptiste DO Referring Provider Active Start: January 19, 2024 [...] September 26, 2023 Clint Jean Baptiste , DO Referring Provider Active Start: September 26, 2023 [...] Isaías Jordan II, DO Attending Provider Active NON STAFF Primary Care Provider Active Team Status: Active Member Role Status Dates NON STAFF Primary Care Provider Active Business Development Executive Relationship Specialty [place] [address] [place] [id number] PCP - General Family Medicine 03/19/23 Business Development Executive Relationship Specialty [place] [address] [place] [id number] PCP - General Family Medicine 03/19/23 Team Status: Inactive Member Role Status Dates Sandro Chin MD Primary Care Provide r, Attending Provider Active Start: July 01, 2024 End: July 01, 2024 Team Status: Active Member Role Status Dates Sandro Chin MD Primary Care Provide r, Attending Provider Active Start: August 24, 2024 Team Status: Inactive Member Role Status Dates Sandro Chin MD Primary Care Provider Active Start: September 06, 2024 End: September 06, 2024 Isaías Jordan II, DO Attending Provider Active Start: September 06, 2024 End: September 06, 2024 Team Status: Active Member Role Status Dates Isaías Jordan II, Active S tart: September 06, 2024 Clint Jean Baptiste DO Referring Provider Active Start: September 06, 2024 Sandro Chin MD Primary Care Provider Active Start: September 06, 2024 Kristinaroula Turner APRN Attending Provider Acti ve Start: September 06, 2024 Team Status: Inactive Member Role Status Dates Sandro Chin MD Primary Care Provide r, Attending Provider Active Start: December 14, 2024 End: December 14, 2024 Business Development Executive Relationship Specialty Start Date End Date Sandro Chin MD [address] [place] [address] PCP - General Family Medicine 12/14/24 Business Development Executive Relationship Specialty Start Date End Date Sandro Chin MD [address] [place] [phone] PCP - General Family Medicine 12/14/24 Goals (unrecognized section and content) Goals may [...] alternate sectionNot on filedocumented as of this encounterNot on filedocumented as of this encounterNot on filedocumented as of this encounterGoals may be documented in an alternate sectionGoals may be documented in an alternate section REASON FOR VISIT (unrecogniz ed section and content) Reason Comments PORT REMOVAL PORT REMOVAL, PATIEN T HOPING TO HAVE PROCEDURE DONE 03/24/24, REFERRED BY DR JORDAN, PATIENT WANTED TO WAIT TO HAVE PROC DONE IN MAR SO WAITED FOR OV UNTIL FEBRUARY Reason Comments Procedure REMOVAL OF PORT Reason Comments Post-op Post op port removal performed in office on 03/15/24, suture removal Reason Comments Allergic Rhinitis Specialty Diagnoses / Procedures Referred By Soham t Referred To Contact Otolaryngology Diagnoses Other seasonal allergic rhinitis Procedures [place] [facility] [address] [place] [address] Phone: tel: fax: Constantino Martinez MD [address] [facility] [address] [place] [address] Phone: tel: fax: Referral ID Status Reason Start Date Expiration Date Visits Re quested Visits Authorized [id number] Closed 12/14/2024 06/12/2025 1 1 FOR RECORDS PERTAINING TO PATIENTS WHO ARE [...] BE BASED ON THE PRIMARY CLINICAL RECORDS. [facility] [employer] provides no warranty or guarantee of the accuracy or completeness of information in this document.
--- OUTSIDE RECORDS SUMMARY | 2024-12-25 10:05 | XMS_ITS | Encounter Summary ---
Author Organization [facility] Address [address] [place] [address] Care Team Providers Care Diesel Locomotive Firer Name Role Phone Melissa Worthy MD Primary Care Provider [phone] Encounter Details Date Type Department Care Team [...] EDT Office Visit [facility] [address] [facility] [address] [place] [id number] Rosemary Bauman MD 112 [facility] 130 [place] [address] documented as of this encounter Visit Diagnoses Not on filedocumented in this encounter Care Teams Diesel Locomotive Firer Relationship Specialty Start Date End Date Melissa Worthy MD [address] [place] [phone] PCP - General Family Medicine 12/14/24 documented as of this encounter
--- OUTSIDE RECORDS SUMMARY | 2024-12-25 10:05 | XMS_ITS | Encounter Summary ---
Author Organization [facility] Address [address] [place] [place] [address] Care Team Providers Care Oracle Applications Developer Name Role Phone Melissa Worthy MD Primary Care Provider [phone] Encounter Details Date Type Department Care Team ([facility] Contact Info) Description 12/21/2024 Bamboo flowsheet [facility] 112 [facility] 130 [place] [address] Rosemary Bauman MD 112 [facility] [address] [place] [address] Social History Tobacco Use Types Packs/Day Years [...] Upcoming Encounters Date Type Department Care Team ([facility] Contact Info) Description 01/18/2025 1:30 PM EDT Office Visit [facility] [address] [facility] [address] [place] [address] Rosemary Bauman MD 112 [facility] [address] [place] [address] documented as of this encounter Visit Diagnoses Not on filedocumented in this encounter Care Teams Oracle Applications Developer Relationship Specialty Start Date End Date Melissa Worthy MD [address] [place] [address] PCP - General Family Medicine 12/14/24 documented as of this encounter
--- OUTSIDE RECORDS SUMMARY | 2024-12-25 10:05 | XMS_ITS | Clinical Summary ---
Author Organization [facility] Address [id number] [place] [address] Care Team Providers Care Stave Machine Tender Name Role Phone Melissa Worthy MD Primary Care Provider [phone] Allergies Active Allergy Reactions Criticality Noted Date [...] capsule PATIENT REPORTS NEEDED 3 Active omega 8-sgx-ddr-fish oil (Fish OiL) 300-1,000 mg capsule Take [...] to Health Maintenance Insurance ANTHEM Care Teams Stave Machine Tender Relationship Specialty Start Date End Date Melissa Worthy MD [address] [place] [address] PCP - General Family Medicine 03/19/23
--- OUTSIDE RECORDS SUMMARY | 2024-12-25 10:05 | XMS_ITS | Encounter Summary ---
Author Organization [employer] Address [id number] [address] [place] [address] Care Team Providers Care Orientation & Mobility Specialist Name Role Phone Melissa Worthy MD Primary Care Provider [phone] Encounter Details Date Type Department Care Team (Late st Contact Info) Description 04/23/2023 Telephone [facility] [address] [place] [phone] Yoselin Lo RMA Social History Tobacco Use [...] to update her H&P prior to her [facility] surgery with Dr. Jade 05/07/23. * Telephone [...] on filedocumented in this encounter Care Teams Orientation & Mobility Specialist Relationship Specialty Start Date End Date Melissa Worthy MD [address] [place] [address] PCP - General Family Medicine 03/19/23 documented as of this encounter
--- OUTSIDE RECORDS SUMMARY | 2024-12-25 10:05 | XMS_ITS | Clinical Summary ---
Author Organization [facility] Address [address] [place] [address] Care Team Providers Care Shake Table Operator Name Role Phone Melissa Worthy MD Primary Care Provider [phone] Allergies Active Allergy Reactions Criticality Noted Date [...] 02/20/2023 Glaucoma of both eyes 05/15/2022 bleeding ([facility]) 05/15/2022 Encounters Date Type Department Care Team Description 12/21/2024 8:40 AM EDT Office Visit [facility] [address] [place] [address] [place] [id number] Rosemary Bauman MD Globus sensation (Primary Dx); LPRD (laryngopharyngeal reflux disease) 12/21/2024 Bamboo flowsheet [facility] [address] [place] [address] [place] [id number] Rosemary Bauman MD 12/21/2024 Travel from Last [...] EDT Office Visit [facility] 112 [facility] 130 [place] [address] Rosemary Bauman MD 112 [facility] 130 [place] [address] Health Maintenance Due Date Last Done Comments CT Colonography 1966 FIT-DNA 1966 FIT 1966 FOBT 1966 Sigmoidoscopy 1966 Pap Smear 1987 Cervical Cancer Screening 1996 HPV/Cotest 1996 Mammogram 2006 Colonoscopy 05/07/2033 05/07/2023 Colorectal Cancer Screening 05/07/2033 Influenza Vaccine Completed 05/18/2024 Insurance [employer] Care Teams Shake Table Operator Relationship Specialty Start Date End Date Melissa Worthy MD [address] [place] [address] PCP - General Family Medicine 12/14/24
[2024-12-25 10:22] LABS: Basophils Percent Auto 0.8 % (0.2-2.0); Eosinophils Absolute Auto 0.1 10^3/uL (0.0-0.7); Eosinophils Percent Auto 1.5 % (0.9-7.0); Hematocrit 41.8 % (36.0-48.0); Hemoglobin 13.9 g/dL (12.0-16.0); Immature Granulocytes Abs Auto 0.01 10^3/uL (0.00-0.03); Immature Granulocytes Pct Auto 0.2 % (0.0-0.5); Lymphocytes Absolute Auto 1.7 10^3/uL (1.2-3.8); Lymphocytes Percent Auto 36.1 % (20.5-60.0); Mean Corpuscular HGB Conc 33.3 g/dL (29.9-35.2); Mean Corpuscular Hemoglobin 31.8 pg (26.7-34.0); Mean Corpuscular Volume 95.7 fL (81.0-99.0); Mean Platelet Volume 10.9 fL (9.5-13.5); Monocytes Absolute Auto 0.3 10^3/uL (0.3-0.8); Monocytes Percent Auto 6.8 % (1.7-12.0); Neutrophils Absolute Auto 2.6 10^3/uL (1.4-6.5); Neutrophils Percent Auto 54.6 % (43.0-75.0); Platelet Count 210 10^3/uL (150-450); Red Blood Count 4.37 10^6/uL (4.20-5.40); Red Cell Distribution Width 13.4 % (11.0-15.0); White Blood Count 4.8 10^3/uL (4.0-11.0)
[2024-12-25 10:32] LABS: Estimated Average Glucose 111 mg/dL; Glycohemoglobin A1C 5.5 % (4.5-6.2)
[2024-12-25 10:36] LABS: Alanine Aminotransferase 24 U/L (14-59); Albumin Globulin Ratio 1.1; Alkaline Phosphatase 76 U/L (46-116); Anion Gap 13.3; Aspartate Amino Transferase 14 U/L (15-37); BUN Creatinine Ratio 28.4; Bilirubin Total 0.6 mg/dL (0.2-1.0); Calcium 9.6 mg/dL (8.5-10.1); Carbon Dioxide 28.6 mmol/L (21.0-32.0); Chloride 106 mmol/L (98-107); Chol HDL Ratio 4.6; Cholesterol 219 mg/dL (<=200); Estimated GFR (African America >60 (>=60 mL/min/1.73m^2); Estimated GFR (Non-African Ame >60 (>=60 mL/min/1.73m^2); Globulin 3.5 g/dL; Glucose 88 mg/dL (74-106); HDL Cholesterol 48 mg/dL (40-60); Potassium 3.9 mmol/L (3.5-5.1); Sodium 144 mmol/L (136-145); Total Protein 7.5 g/dL (6.4-8.2); Triglycerides 70 mg/dL (<=150)
== END 2024-12-25 10:04 | disposition home or self-care (01) ==
LOC: LAB 10:03
PROVIDERS: PCP Family Medicine; Visit Provider Family Medicine
DX: Z00.00 Encounter for general adult medical examination without abnormal findings (principal)
CPT/HCPCS: 36415; 80053; 80061; 83036; 85025

== ENCOUNTER 2025-03-17 11:46 | Outpatient (OUT) | payer BC, SELFPAY ==
--- OUTSIDE RECORDS SUMMARY | 2025-03-17 11:49 | XMS_ITS | Encounter Summary ---
Author Organization [employer] Address [facility] [id number] [address] [place] [address] Care Team Providers Care Cradle Slide Maker Name Role Phone Melissa Worthy MD Primary Care Provider Encounter Details Date Type Department Care Team (Late st Contact Info) Description 04/23/2023 Telephone [facility] [address] [place] [phone] Yoselin Lo RMA Social History Tobacco Use [...] to update her H&P prior to her [facility] surgery with Dr. Jade 05/07/23. * [...] on filedocumented in this encounter Care Teams Cradle Slide Maker Relationship Specialty Start Date End Date Melissa Worthy MD [address] [place] [address] PCP - General Family Medicine 03/19/23 documented as of this encounter
--- OUTSIDE RECORDS SUMMARY | 2025-03-17 11:49 | XMS_ITS | Clinical Summary ---
Author Organization [facility] Address [address] [place] [address] Care Team Providers Care Sales Attendant Building Materials Name Role Phone Melissa Worthy MD Primary Care Provider [phone] Allergies Active Allergy Reactions Criticality Noted Date [...] EYE IN THE EVENING DIRECTED 04/24/2024 Active dorzolamide-olga olol (Cosopt) 2-0.5 % ophthalmic solution INSTILL 1 DROP INTO EACH EYE TWICE DAILY DIRECTED 11/12/2024 Active brimonidine (AlphaGAN P) 0.2 % ophthalmic solution INSTILL 1 DROP INTO EACH EYE TWICE DAILY DIRECTED 11/06/2024 Active loratadine (Claritin) 10 MG tablet Daily 12/14/2024 Active pantoprazole (ProtoNix) 40 MG EC tablet Daily 12/14/2024 Active omega-3 1000 MG capsule capsule Take by mouth 01/19/2024 Active famotidine (Pepcid) 20 MG tabletIndicatio ns:LPRD (laryngopharyng eal reflux disease) Take 1 tablet (20 mg) by mouth at bedtime 90 tablet 12/21/2024 03/21/20 25 Active Active Problems Problem Noted Date Diagnosed Date Abnormal LFTs 12/20/2024 Chemotherapy-induced peripheral neuropathy 12/20 Colon cancer 12/20/2024 Encounter for chemotherapy management 12/20/2024 Osteoarthritis 12/20/2024 Pharyngitis, chronic 12/20/2024 Salivary gland hypertrophy 12/20/2024 Situational anxiety 12/20/2024 Female pelvic congestion syndrome 02/20/2023 Glaucoma of both eyes 05/15/2022 bleeding ([facility]) 05/15/2022 Encounters Date Type Department Care Team Description 12/21/2024 8:40 AM EDT Office Visit [facility] 112 [facility] [address] [place] [address] Rosemary Bauman MD Globus sensation (Primary Dx); LPRD (laryngopharyngeal reflux disease) 12/21/2024 Bamboo flowsheet [facility] 112 [facility] [address] [place] [address] Rosemary Bauman MD 12/21/2024 Travel from Last [...] 02/19/2023 11:44 AM EDT Plan of Treatment Health Maintenance Due Date Last Done Comments CT Colonography 1966 FIT-DNA 1966 FIT 1966 FOBT 1966 Sigmoidoscopy 1966 Pap Smear 1987 Cervical Cancer Screening 1996 HPV/Cotest 1996 Mammogram 2006 Influenza Vaccine (#1) 2025 05/18/2024 Colonoscopy 05/07/2033 05/07/2023 Colorectal Cancer Screening 05/07/2033 Insurance [facility] Care Teams Sales Attendant Building Materials Relationship Specialty Start Date End Date Melissa Worthy MD [address] [place] [address] PCP - General Family Medicine 12/14/24
[2025-03-17 12:16] LABS: Hematocrit 41.6 % (36.0-48.0); Hemoglobin 13.9 g/dL (12.0-16.0); Immature Granulocytes Abs Auto 0.01 10^3/uL (0.00-0.03); Immature Granulocytes Pct Auto 0.2 % (0.0-0.5); Lymphocytes Absolute Auto 1.5 10^3/uL (1.2-3.8); Mean Corpuscular HGB Conc 33.4 g/dL (29.9-35.2); Mean Corpuscular Hemoglobin 31.9 pg (26.7-34.0); Mean Corpuscular Volume 95.4 fL (81.0-99.0); Platelet Count 206 10^3/uL (150-450); Red Blood Count 4.36 10^6/uL (4.20-5.40); White Blood Count 4.9 10^3/uL (4.0-11.0)
--- NOTE | 2025-03-17 12:19 | CT_ITS ---
The [address] [address] Patient Name: SHU GARDNER MRN: [id number] date: 1965 Sex: F Assigned Patient Location: LAB Current Patient Location: LAB Accession/Order Number: [id number] Exam Date: 03/17/2025 13:25 Report Date: 03/17/2025 17:26 At the request of: ISAÍAS GARCIA Procedure: CT abdomen pelvis w con CT CHEST, ABDOMEN AND PELVIS WITH INTRAVENOUS CONTRAST: CLINICAL HISTORY: restaging study for colon cancer COMPARISON: 08/24/2024 and 09/18/2023 TECHNIQUE: TECHNIQUE: Spiral images were obtained through the chest, abdomen and pelvis following the administration of IV contrast. This CT exam was performed using one or more following dose reduction techniques: Automated exposure control, adjustment of the mA and/or kV according to patient size, or use of iterative reconstruction technique. FINDINGS: CT chest: Mediastinum:Minimally prominent heart size. Trace pericardial fluid. No suspicious mediastinal or hilar adenopathy. There is a possible flow-related artifact versus intraluminal thrombus involving one of the azygos branches. Lungs:New multifocal pulmonary nodules. [employer] nodule within the right upper lobe inferiorly 1 cm in size. Left lower lobe nodule 8 mm in size. Right middle lobe nodules up to 7 mm in size. Otherwise no focal parenchymal opacity effusion or pneumothorax. Soft tissues/Bones: [] Multilevel degenerative changes and Schmorl's node deformity deformities. No evidence of suspicious bone lesions. CT abdomen and pelvis: Organs:Stable right anterior liver hypodensity. There is a new hypodensity within the right hepatic lobe 7 mm in size, image 40. Otherwise spleen, adrenals, pancreas unremarkable. Kidneys measure size. No hydronephrosis. GI: Mild retained stool. No bowel obstruction. Short segment mural thickening descending colon measuring 2.4 cm in length could represent focal peristaltic activity, no definite mural thickening at this level. Pelvis:[Stable mildly heterogeneous uterus.]. Focal prominence of the level of the cervical region noted appears to extend posteriorly this measures 3.3 x 2.5 cm in size.. In retrospect, there may have been slight area nodule thickening a similar location measuring 1.2 cm in size. Peritoneum/Retroperitoneum:No definite adenopathy. No free air or free fluid. Aorta normal caliber.[ Abd wall/Bones:Multilevel degenerative change. Anterolisthesis L4-L5 identified. Multilevel facet arthropathy notably L4-5.[ CT/CT abdomen pelvis w con IMPRESSION: Multifocal pulmonary nodules worrisome for progression of disease. New indeterminate right hepatic lobe hyperdensity. Given the findings within the chest, this could suggest metastatic disease. Partially exophytic mass lesion in the region of the cervix/lower uterine segments. Question this could represent a metastatic deposit. Consider ultrasound. Impression dictated by: Marito Tabor M.D. 03/17/2025 5:26 PM Dictation Location: [place] [address] Electronically authenticated by: [id number] Y Date: 03/17/2025 17:26
--- NOTE | 2025-03-17 12:19 | CT_ITS ---
The [address] [address] Patient Name: SHU GARDNER MRN: [id number] date: 1965 Sex: F Assigned Patient Location: LAB Current Patient Location: LAB Accession/Order Number: [id number] Exam Date: 03/17/2025 13:25 Report Date: 03/17/2025 17:26 At the request of: ISAÍAS GARCIA Procedure: CT abdomen pelvis w con CT CHEST, ABDOMEN AND PELVIS WITH INTRAVENOUS CONTRAST: CLINICAL HISTORY: restaging study for colon cancer COMPARISON: 08/24/2024 and 09/18/2023 TECHNIQUE: TECHNIQUE: Spiral images were obtained through the chest, abdomen and pelvis following the administration of IV contrast. This CT exam was performed using one or more following dose reduction techniques: Automated exposure control, adjustment of the mA and/or kV according to patient size, or use of iterative reconstruction technique. FINDINGS: CT chest: Mediastinum:Minimally prominent heart size. Trace pericardial fluid. No suspicious mediastinal or hilar adenopathy. There is a possible flow-related artifact versus intraluminal thrombus involving one of the azygos branches. Lungs:New multifocal pulmonary nodules. [employer] nodule within the right upper lobe inferiorly 1 cm in size. Left lower lobe nodule 8 mm in size. Right middle lobe nodules up to 7 mm in size. Otherwise no focal parenchymal opacity effusion or pneumothorax. Soft tissues/Bones: [] Multilevel degenerative changes and Schmorl's node deformity deformities. No evidence of suspicious bone lesions. CT abdomen and pelvis: Organs:Stable right anterior liver hypodensity. There is a new hypodensity within the right hepatic lobe 7 mm in size, image 40. Otherwise spleen, adrenals, pancreas unremarkable. Kidneys measure size. No hydronephrosis. GI: Mild retained stool. No bowel obstruction. Short segment mural thickening descending colon measuring 2.4 cm in length could represent focal peristaltic activity, no definite mural thickening at this level. Pelvis:[Stable mildly heterogeneous uterus.]. Focal prominence of the level of the cervical region noted appears to extend posteriorly this measures 3.3 x 2.5 cm in size.. In retrospect, there may have been slight area nodule thickening a similar location measuring 1.2 cm in size. Peritoneum/Retroperitoneum:No definite adenopathy. No free air or free fluid. Aorta normal caliber.[ Abd wall/Bones:Multilevel degenerative change. Anterolisthesis L4-L5 identified. Multilevel facet arthropathy notably L4-5.[ CT/CT chest w con IMPRESSION: Multifocal pulmonary nodules worrisome for progression of disease. New indeterminate right hepatic lobe hyperdensity. Given the findings within the chest, this could suggest metastatic disease. Partially exophytic mass lesion in the region of the cervix/lower uterine segments. Question this could represent a metastatic deposit. Consider ultrasound. Impression dictated by: Marito Tabor M.D. 03/17/2025 5:26 PM Dictation Location: [place] [address] Electronically authenticated by: [id number] Y Date: 03/17/2025 17:26
--- OUTSIDE RECORDS SUMMARY | 2025-03-17 12:20 | XMS_ITS | CCD ---
Author Organization [facility] Care Team Providers Care Wire Spring Relay Adjuster Name Role Phone DO Isaías Jordan II Attending Provider [phone] DO Clint Jean Baptiste Referring Provider MD Sandro Chin Primary Care Provider DO Isaías Jordan II Attending Provider [phone] NON STAFF Primary Care Provider DO Clint Amos Referring Provider MD Sandro Chin Primary Care Provider DO Clint Jean Baptiste Referring Provider MD Sandro Chin Primary Care Provider DO Clint Jean Baptiste Referring Provider MD Sandro Chin Primary Care Provider ISAÍAS JORDAN Admitting Unavailable ISAÍAS JORDAN Attending Unavailable DR SANDRO CHIN Primary Care Unavailable ISAÍAS JORDAN Consulting DR SANDRO Thapa Primary Care Unavailable ISAÍAS JORDAN Admitting Unavailable ISAÍAS JORDAN Attending Unavailable ISAÍAS JORDAN Consulting Unavailable ISAÍAS JORDAN Admitting Unavailable ISAÍAS JORDAN Attending Unavailable DR SANDRO CHIN Primary Care Unavailable ISAÍAS JORDAN Consulting Unavailable ITA ., DR CLINT Ernst Admitting Unavaila brent JEAN BAPTISTE ., DR CLINT Ernst Attending Unavaila brent [...] ISAÍAS J Attending Unavailable CHIN, DR SANDRO rEnst Primary Care Unavailable ADAMOWICZ, ISAÍAS J Consulting [...] ., DR CLINT Ernst Consulting Unavaila ble LORETAEBIVONNE, DR NEDA Gallo Consulting Unavailable ADAMOWICZ, ISAÍAS J Admitting Unavailable ADAMOWICZ, ISAÍAS J Attending Unavailable CHIN, DR SANDRO Ernst Primary Care Unavailable ADAMOWICZ, ISAÍAS J Consulting Unavailable ADAMOWICZ, ISAÍAS J Admitting Unavailable ADAMOWICZ, ISAÍAS J Attending Unavailable CHIN, DR SANDRO Ernst Primary Care Unavailable ADAMOWICZ, ISAÍAS J Consulting Unavailable GRILLIS ., DR CLINT Ernst Admitting Unavaila ble GRPAPA ., DR CLINT Ernst Attending Unavaila ble GIUSEPPE, DR SANDRO Ernst Primary Care Unavailable GRILLIS ., DR CLINT Ernst Consulting Unavaila ble KODI, CANDELARIO Consulting Unavailable GRILLIS ., DR CLINT Ernst Admitting Unavaila ble GRILLIVidhya ., DR CLINT Ernst Attending Unavaila ble GIUSEPPE, DR SANDRO Ernst Primary Care Unavailable GRILLIS ., DR CLINT Ernst Consulting Unavaila ble GRPAPA ., DR CLINT Ernst Admitting Unavaila ble GRILLIVidhya ., DR CLINT Ernst Attending Unavaila ble GIUSEPPE, DR SANDRO Ernst Primary Care Unavailable GRILLIS ., DR CLINT Ernst Consulting Unavaila ble ZIEBER, DR NEDA Gallo Consulting Unavailable KODI, CANDELARIO Consulting Unavailable SHARP, BERTHA Consulting Unavailable KUCHIPUDI, JOLENE Consulting Unavailable CHIN, DR SANDRO Ernst Primary Care Unavailable KATKO, IRVING Babin Admitting Unavailable KATARMIN, IRVING Babin Attending Unavailable ALONSO, IRVING Babin Consulting Unavailable CHIN, DR SANDRO Ernst Primary Care Unavailable GRILLIS ., DR CLINT Ernst Consulting Unavaila ble HOY ., DR SHAHID Admitting Unavailable HOY ., DR SHAHID Attending Unavailable GRILLIS ., DR CLINT Ernst Procedure Practitioner U navailable HOY ., DR SHAHID Consulting Unavailable NADERER, MINGO Lucero Consulting Unavailable MUKHERJEE, JOSHUA Consulting Unavailable MORGOS, SUZIE Consulting Unavailable SHARP, BERTHA Consulting Unavailable RAZIA, AUGUSTIN Consulting Unavailable GRILLIS ., DR CLINT Ernst Admitting Unavaila ble GRPAPA ., DR CLINT Ernst Attending Unavaila ble GIUSEPPE, DR SANDRO Ernst Primary Care Unavailable GRILLIS ., DR CLINT Ernst Consulting Unavaila ISAÍAS Kang Admitting Unavailable ISAÍAS JORDAN Attending Unavailable GIUSEPPE, DR SANDRO Ernst Primary Care Unavailable ISAÍAS JORDAN Consulting Unavailable Sandro Chin Unavailable DO Clint Jean Baptiste Referring Provider MD Sandro Chin Primary Care Provider OLIVIA Turner Attending Provider DO Clint Jean Baptiste Referring Provider MD Sandro Chin Primary Care Provider [phone] OLIVIA Turnerine Attending Provider CLINT JEAN BAPTISTE Attending Unavailable SANDRO CHIN Referring Unavailable SANDRO CHIN Primary Care Unavailable CLINT JEAN BAPTISTE Attending Unavailable SANDRO CHIN Referring Unavailable SANDRO CHIN E Primary Care Unavailable MASHA RICHARDSON Attending Unavailable SANDRO CHIN Referring Unavailable SANDRO CHIN Primary Care Unavailable Sandro Chin MD Primary Care Provider Clint Jean Baptiste DO Referring Provider Sandro Chin MD Primary Care Provider Johnny OR FIRST ASSIST REGISTERED NURSE, Carlyn Roca Attending Provider Sandro Chin MD Primary Care Provider CONSTANTINO MARTINEZ Attending Unavailable Sandro Chin MD Primary Care Provider Sandro Chin MD Attending Provider Ly DO Roz L Attending Provider Ly DO Roz L Other Provider Sandro Chin E Primary Care Unavailable Salima Roz L Attending Unavailable Salima Roz L Admitting Unavailable Sandro Chin E Admitting Unavailable Sandro Chin Attending Unavailable Sandro Chin E Primary Care Unavailable Clint Jean Baptiste Referring Unavailable Carlyn Turner Attending Unavail able Carlyn Turner Admitting Unavail able Sandro Chin Primary Care Unavailable Allergies Allergy Classification Reported Allergen(s) Allergy Type Date of Onset Reaction(s) Facility (16 sources) HYDROcodone; Translations: [Hydrocodone] Drug Allergy 2 Nausea And Vomiting [facility] (1 source) Misc-Food; Translations: [Misc-Food] Food allergy (disorder) [facility] Repository (7 sources) Codeine; Translations: [CODEINE] Drug Allergy 3 GI Disturbance, GI intolerance [facility] Repository Medications Current Medications Medication Drug Class(es) Dates Sig (Normalized) Sig (Original) acetaminophen 500 mg oral tablet (15 sources) Start: 05-03-2022 take 2 tablets by mouth once daily as needed for pain Acetaminophen 500 mg Tablet Active 1000 MG PO Daily as needed for Pain May 03, 2022 12:00am Complies with drug therapy Start: 05-03-2022 take 1000 mg by mout [...] EYE-BOTH Twice daily May 02, 2022 12:00am Complies with drug therapy Start: 05-02-2022 take 1 drop(s) into the [...] eye Active cholecalciferol 0.025 mg oral capsule (15 sources) Vitamin D Start: 05-27-2022 take 1 capsule by mouth once daily Cholecalciferol (Vitamin D3) 25 mcg (1,000 unit) Capsule Active 25 MCG PO Daily May 27, 2022 1:00am Complies with drug therapy cholecalciferol, vitamin D3, (VITAMIN D3 ORAL) (3 [...] capsule capsule Take by mouth 01/19/2024 Active Helotes 8-Umo-Lgm-Fish Oil (5 sources) Start: 01-19-2024 take 300-1000 mg by mouth once daily Helotes 0-Hac-Qeq-Fish Oil (Fish Oil) 300-1,000 mg capsule Active 1 CAP PO Daily January 19, 2024 12:00am Complies with drug therapy Start: 01-19-2024 take 300-1000 mg by mouth once daily Helotes 9-Hog-Yrw-Fish Oil (Fish Oil) 300-1,000 mg capsule Active 1 CAP PO Daily January 18, 2024 11:00pm Start: 01-19-2024 take 300-1000 mg by mouth once daily Helotes 7-Xfz-Gnl-Fish Oil (Fish Oil) 300-1,000 mg capsule Active [...] EYE-BOTH Twice daily May 02, 2022 12:00am Complies with drug therapy Start: 05-02-2022 take 1 drop(s) into the [...] EYE-BOTH Every evening May 02, 2022 12:00am Complies with drug therapy Start: 05-02-2022 take 1 drop(s) into the [...] mv-mn/om3/dha/epa/fish/lut/z ea (OCUVITE ADULT 50 PLUS ORAL) (3 sources) mv-mn/om3/dha/ep a/fish/lut/katheryn (OCUVITE ADULT 50 PLUS ORAL) Take by mouth daily. Active omega 6-ids-swr-fish oil (Fi sh OiL) 300-1,000 mg capsule (3 sources) omega 3-dha-epa- fish oil (Fish OiL) 300-1,000 mg capsule Take by mouth. Active omeprazole 20 mg delayed rel ease oral capsule (16 sources) Proton Pump Inhibitor St ar t: 23 En d: 25 take 1 capsule by mouth every twenty-fo ur hours as needed omeprazole (PriLOSEC) [address] capsule Take 20 mg by mouth Daily as needed 01/16/2023 12/21/2024 Discontinued (Therapy completed) Start: 08-05-2022 End: 12-14-2024 take 20 mg by mouth once daily Omeprazole Magnesium (P rilosec) 10 mg Susp,Delayed Release For Recon Discontinued 20 MG PO Daily August 05, 2022 1:00am December 14, 2024 9:54am pantoprazole 40 mg delayed release oral tablet (5 sources) Proton Pump Inhibitor Start: 12-14-2024 take 1 tablet by mouth once daily Pantoprazole 40 mg tablet,delayed release (DR/EC) Active 40 MG PO Daily December 14, 2024 12:00am Complies with drug therapy sulfamethoxazole 800 mg / trimethoprim 160 mg [...] acid 1000 mg extended release oral tablet (15 sources) Vitamin C Start: 05-27-2022 End: 11-17-2023 [...] Start: 05-27-2022 take 1 capsule by mo [facility] once daily Ascorbic Acid (Vitamin C) Active 1 CAP PO Daily May 27, 2022 1:00am Start: 05-27-2022 take 1 capsule by mo [facility] once daily Ascorbic Acid (Vitamin C) Active 1 CAP PO Daily May 27, 2022 12:00am Carica Papaya (Papaya Enzyme) Tablet (10 sources) Start: 08-19-2022 End: 06-25-2023 take 1 [...] 11:38am Start: 08-19-2022 take 1 tablet by [facility] once daily Carica Papaya (Papaya Enzyme) Tablet Active 1 TAB PO Daily August 19, 2022 12:00am celecoxib 200 mg oral capsule (16 sources) Nonsteroidal Anti-inflammatory Drug Start: 02-19-2023 End: 07-01-2024 take 1 capsule by mouth once daily Celecoxib (Celebrex) 200 mg Capsule Discontinued 200 MG PO Daily 60 March 24, 2023 12:00am July 01, 2024 12:29pm glucosamine 500 mg oral tablet (5 sources) Start: 01-19-2024 End: 07-01-2024 take 1 tablet by mouth once daily Glucosamine Hcl 500 mg tablet Discontinued 500 MG PO Daily January 19, 2024 12:00am July 01, 2024 12:06pm administer with a meal Vbxvl-Mr-7-Dha-Ep o-Wthkybh-Dbl (11 sources) Start: 05-02-2022 End: 05-03-2022 take 3 capsules by mouth once daily Mvxhm-Qn-3-Dha-Ep o-Dijjahv-Wkb Discontinued 1 CAP PO Daily May 02, 2022 12:00am May 03, 2022 2:39pm Start: 05-02-2022 End: 05-03-2022 take 3 capsules by mouth once daily Auxba-Rn-2-Wgj-Irx-Rsxuarw-Ast Discontin ued 1 CAP PO Daily May 01, 2022 11:00pm May 03, 2022 1:39pm Zinas-Sg-9-Ndp-Nqc-Tdbkugg-A st 1,487-416-03-80 mg Capsule (4 sources) Start: 05-02-2022 End: 05-03-2022 Dlclk-Uh-5-Yov-Bxc-Nksyqqe-A st 1,474-185-51-80 mg Capsule Discontinued 1 CAP PO Daily May 02, 2022 12:00am May 03, 2022 2:39pm Start: 05-02-2022 End: 05-03-2022 Smhwo-Ml-0-Ept-Imf-Nsbhvfl-A st 1,254-011-99-80 mg Capsule Discontinued 1 CAP PO Daily May 01, 2022 11:00pm May 03, 2022 1:39pm loratadine 10 mg oral tablet (5 sources) Start: 12-14-2024 End: 01-20-2025 take 1 tablet by mouth once daily Loratadine (Claritin) 10 mg tablet Discontinued 10 MG PO Daily December 14, 2024 12:00am January 20, 2025 1:11pm magnesium sulfate 0.0277 meq/ml / potassium sulfate 0.0374 meq/ml / sodium sulfate 0.257 meq/ml oral solution (1 source) Start: 03-19-2023 End: 03-03-2024 take 177 mL by mouth in the morning sodium,potassium,mag sulfates (SUPREP) 17.5-3.13-1.6 gram recon soln Take 177 mL by mouth in the morning and 177 mL before bedtime. 4956 mL 03/19/2023 03/03/2024 Discontinued (Therapy completed) ondansetron 8 mg oral tablet (19 sources) Serotonin-3 Receptor Antagonist Start: 05-03-2022 End: 03-03-2024 take 1 tablet by mouth every eight hours as needed for nausea Ondansetron Hcl 8 mg tablet Discontinued 8 MG PO Q8H as needed for Nausea May 03, 2022 12:00am March 24, 2023 10:40am prochlorperazine 10 mg oral tablet (10 sources) Phenothiazine Start: 08-05-2022 End: 03-24-2023 take [...] 24 tablet 03/19/2023 03/02/2024 Discontinued Vit C-E-Zinc Py-Yved-Unm-Zeax (Icaps Areds2) 250 mg-200 unit -12.5 mg-1 mg Capsule (8 sources) Start: 06-25-2023 End: 11-17-2023 take 2 capsules by mouth once daily Vit C-E-Zinc Rb-Btcy-Awt-Zeax (Icaps Areds2) 250 mg-200 unit -12.5 mg-1 mg Capsule Discontinued 2 CAP PO Daily June 25, 2023 12:00am November 17, 2023 8:48am Start: 06-25-2023 End: 11-17-2023 take 2 capsules by mouth once daily Vit C-E-Zinc Dc-Slea-Tmn-Zeax (Icaps Areds2) 250 mg-200 unit -12.5 mg-1 mg Capsule Discontinued 2 CAP PO Daily June 25, 2023 1:00am November 17, 2023 9:48am Start: 06-25-2023 take 2 capsules by m outh once daily Vit C-E-Zinc Yw-Bcxn-Hnq-Zeax (Icaps Areds2) 250 mg-200 unit -12.5 mg-1 mg Capsule Active 2 CAP PO Daily June 25, 2023 1:00am Start: 06-25-2023 take 2 capsules by m outh once daily Vit C-E-Zinc Qo-Pkik-Ytk-Zeax (Icaps Areds2) 250 mg-200 unit -12.5 mg-1 mg Capsule Active 2 CAP PO Daily June 25, 2023 12:00am Vitamin A-Vitamin C-Vit E-Min (Ocuvite) Tablet (15 sources) Start: 05-02-2022 End: 05-27-2022 take 1 [...] Problem Date Documented Date Episodic/Chronic Anxiety disorders (8 sources) Anxiety; Translations: [Other specified anxiety disorders] [...] ear Episodic Diseases of mouth; excluding dental (11 sources) Hypertrophy of salivary gland; Translations: [Hypertrophy of salivary gland] Onset: 12-20-2024 11-17-2023 Episodic E Codes: Cut/pierceb (1 source) Contact with contaminated hypodermic needle, initial encounter; Translations: [CNTCT CONTAMINAT HYPODRM NEEDL INIT] Onset: 09-18-2022 Episodic Esophageal disorders (5 sources) Laryngopharyngeal reflux; Translations: [Gastro-esophageal reflux disease without esophagitis] Onset: 02-01-2025 12-21-2024 Chronic Glaucoma (7 sources) Unspecified glaucoma; [...] DMG NAIL INIT] Onset: 09-01-2022 Episodic Osteoarthritis (8 sources) Osteoarthritis; Translations: [Unspecified osteoarthritis, unspecified site] Onset: 12-20-2024 07-01-2024 Chronic Other nervous system disorders (13 sources) Peripheral neuropathy due to and following chemotherapy; Translations: [Drug-induced polyneuropathy] Onset: 12-20-2024 07-22-2022 Chronic Other nervous system disorders (6 sources) Drug-induced polyneuropathy; Translations: [Polyneuropathy due to other toxic agents] 08-19-2022 Chronic Other screening for suspected conditions (not mental disorders or infectious disease) (20 sources) Liver function tests abnormal; Translations: [Other specified abnormal findings of blood chemistry] Onset: 12-20-2024 07-22-2022 Episodic Other upper respiratory disease (7 sources) Chronic pharyngitis; Translations: [Chronic pharyngitis] Onset: 12-20-2024 12-14-2024 Chronic Other upper respiratory disease (2 sources) Chronic pharyngitis; Translations: [Chronic pharyngitis] 12-14-2024 Chronic Other upper respiratory disease (4 sources) Feeling of lump in throat; Translations: [...] 01-09-2022 Episodic Other aftercare (1 source) 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 Scanned copy available in EMR. PERFORMED BY: [place] [address] PATHOLOGIST FOOD SERVICE HELPER CECY RODRIGUEZ M.D. Performed By: #### P ATH TO [facility] #### [facility] [address] [place] [address] Basophils Auto (Bld) [#/Vol] Ordered By: Sandro Chin on 12-25-2024 Basophils (Bld) [#/Vol] 0.0 10 3/uL 0.0-0.1 [facility] Basophils/100 WBC Auto (Bld) Ordered By: Sandro Chin on 12-25-2024 Basophils/100 WBC (Bld) 0.8 % 0.2-2.0 [facility] Cholesterol in LDL Calc [Mas s/Vol]Ordered By: Sandro Chin on 12-25-2024 Cholesterol in LDL [Mass/Vol] 157.0 mg/dL [facility] Comment on above: <100 mg/dl [id number] 0-129 mg/dl NEAR OR ABOVE [id number] mg/dl BORDERLINE [id number] mg/dl HIGH>190 mg/dl VERY HIGH Cholesterol in VLDL Calc [Ma ss/Vol]Ordered By: Sandro Chin on 12-25-2024 Cholesterol in VLDL [Mass/Vol] 14.0 mg/dL [facility] Eosinophils/100 WBC Auto (Bl d)Ordered By: Sandro Chin on 12-25-2024 Eosinophils/100 WBC (Bld) 1.5 % 0.9-7.0 [facility] Erythrocyte distribution wid th Auto (RBC) [Ratio]Ordered By: Sandro Chin on 12-25-2024 Erythrocyte distribution width (RBC) [Ratio] 13.4 % 11.0-15.0 [facility] Estimated glomerular filtrat ion rate (GFR) non- AmericanOrdered By: Sandro Chin on 12-25-2024 GFR/1.73 sq M.predicted among non-blacks MDRD (S/P/Bld) [Vol rate/Area] mL/min/{1.73_m2} >=60 mL/min/1.73 m 2 [facility] Globulin Calc (S) [Mass/Vol] Ordered By: Sandro Chin on 12-25-2024 Globulin (S) [Mass/Vol] 3.5 g/dL [facility] Glucose mean value [Mass/vol ume] in Blood Estimated from glycated hemoglobinOrdered By: Sandro Chin on 12-25-2024 Average glucose Estimated from glycated hemoglobin (Bld) [Mass/Vol] 111 mg/dL [facility] Hematocrit Auto (Bld) [Volum e fraction]Ordered By: Sandro Chin on 12-25-2024 Hematocrit (Bld) [Volume fraction] 41.8 % 36.0-48.0 [facility] Hemoglobin A1c percentageOrd ered By: Sandro Chin on 12-25-2024 HbA1c (Bld) [Mass fraction] 5.5 % 4.5-6.2 [facility] Comment on above: ADA RECOMMENDED LIMI T 4.0 - 6.0ADA THERAPEUTIC TARGET < 7.0ACTION SUGGESTED> 7.0 Hemoglobin [Mass/volume] in BloodOrdered By: Sandro Chin on 12-25-2024 Hemoglobin (Bld) [Mass/Vol] 13.9 g/dL 12.0-16.0 [facility] Laboratory - Chemistry and C hemistry - challengeOrdered By: Sandro Chin on 12-25-2024 Albumin [Mass/Vol] 4.0 g/dL 3.4-5.0 [facility] ALP [Catalytic activity/Vol] 76 U/L 46-116 [facility] ALT [Catalytic activity/Vol] 24 U/L 14-59 [facility] AST [Catalytic activity/Vol] 14 U/L Low 15-37 [facility] Bilirubin [Mass/Vol] 0.6 mg/dL 0.2-1.0 [facility] Calcium [Mass/Vol] 9.6 mg/dL 8.5-10.1 [facility] Chloride [Moles/Vol] 106 mmol/L 98-107 [facility] Cholesterol [Mass/Vol] 219 mg/dL High <=200 [facility] Cholesterol in HDL [Mass/Vol] 48 mg/dL 40-60 [facility] Comment on above: > or =60 mg/dl - LOW CARDIOVASCULAR RISK<40 mg/dl - HIGH CARDIOVASCULAR RISK CO2 [Moles/Vol] 28.6 mmol/L 21.0-32.0 [facility] Creatinine [Mass/Vol] 0.67 mg/dL 0.55-1.02 [facility] GFR/1.73 sq M.predicted MDRD (S/P/Bld) [Vol rate/Area] mL/min/{1.73_m2} >=60 mL/min/1.73 m 2 [facility] Glucose [Mass/Vol] 88 mg/dL 74-106 [facility] Potassium [Moles/Vol] 3.9 mmol/L 3.5-5.1 [facility] Protein [Mass/Vol] 7.5 g/dL 6.4-8.2 [facility] Sodium [Moles/Vol] 144 mmol/L 136-145 [facility] Triglyceride [Mass/Vol] 70 mg/dL <=150 [facility] Urea nitrogen [Mass/Vol] 19.0 mg/dL High 7.0-18.0 [facility] Urea nitrogen/Creatinine [Mass ratio] 28.4 mg/mg [facility] Laboratory - Hematology and Cell countsOrdered By: Sandro Chin on 12-25-2024 Immature granulocytes/100 WBC (Bld) 0.2 % 0.0-0.5 [facility] Leukocytes [#/volume] correc audrey for nucleated erythrocytes in Blood by Automated counOrdered By: Sandro Chin on 12-25-2024 WBC corrected for nucl RBC Auto (Bld) [#/Vol] 4.8 10 3/uL 4.0-11.0 [facility] Lymphocytes Auto (Bld) [#/Vo l]Ordered By: Sandro Chin on 12-25-2024 Lymphocytes (Bld) [#/Vol] 1.7 10 3/uL 1.2-3.8 [facility] Lymphocytes/100 WBC Auto (Bl d)Ordered By: Sandro Chin on 12-25-2024 Lymphocytes/100 WBC (Bld) 36.1 % 20.5-60.0 [facility] MCH Auto (RBC) [Entitic mass ]Ordered By: Sandro Chin on 12-25-2024 MCH (RBC) [Entitic mass] 31.8 pg 26.7-34.0 [facility] MCHC Auto (RBC) [Mass/Vol]Or dered By: Sandro Chin on 12-25-2024 MCHC (RBC) [Mass/Vol] 33.3 g/dL 29.9-35.2 [facility] MCV Auto (RBC) [Entitic vol] Ordered By: Sandro Chin on 12-25-2024 MCV (RBC) [Entitic vol] 95.7 fL 81.0-99.0 [facility] Monocytes Auto (Bld) [#/Vol] Ordered By: Sandro Chin on 12-25-2024 Monocytes (Bld) [#/Vol] 0.3 10 3/uL 0.3-0.8 [facility] Monocytes/100 WBC Auto (Bld) Ordered By: Sandro Chin on 12-25-2024 Monocytes/100 WBC (Bld) 6.8 % 1.7-12.0 [facility] Neutrophils Auto (Bld) [#/Vo l]Ordered By: Sandro Chin on 12-25-2024 Neutrophils (Bld) [#/Vol] 2.6 10 3/uL 1.4-6.5 [facility] Neutrophils/100 WBC Auto (Bl d)Ordered By: Sandro Chin on 12-25-2024 Neutrophils/100 WBC (Bld) 54.6 % 43.0-75.0 [facility] No Panel InformationOrdered By: Sandro Chin on 12-25-2024 Eosinophils # (Auto) 0.1 10 3/uL 0.0-0.7 [facility] Immature Granulocyte # (Auto) 0.01 10 3/uL 0.00-0.03 [facility] Platelet mean volume Auto (B ld) [Entitic vol]Ordered By: Sandro Chin on 12-25-2024 Platelet mean volume (Bld) [Entitic vol] 10.9 fL 9.5-13.5 [facility] Platelets Auto (Bld) [#/Vol] Ordered By: Sandro Chin on 12-25-2024 Platelets (Bld) [#/Vol] 210 10 3/uL 150-450 [facility] RBC Auto (Bld) [#/Vol]Ordere d By: Sandro Chin on 12-25-2024 RBC (Bld) [#/Vol] 4.37 10 6/uL 4.20-5.40 [facility] Serum or plasma albumin/glob ulin mass ratioOrdered By: Sandro Chin on 12-25-2024 Albumin/Globulin [Mass ratio] 1.1 {ratio} [facility] Serum or plasma anion gap de terminationOrdered By: Sandro Chin on 12-25-2024 Anion gap [Moles/Vol] 13.3 mmol/L [facility] Serum or plasma total choles terol/high density lipoprotein (HDL) cholesterol mass ratOrdered By: Sandro Chin on 12-25-2024 Cholesterol.total/Chol esterol in HDL [Mass ratio] 4.6 {ratio} [facility] Comment on above: 3.3 - 4.4 LOW RISK4. 4 - 7.1 AVERAGE RISK7.1 - 11.0 MODERATE RISK>11.0 HIGH RISK Chlamydia trachomatis rRNA [ Presence] in Cervix by MARIVEL with probe detectionOrdered By: Sandro Chin on 12-20-2024 C. trachomatis rRNA MARIVEL+probe Ql (Cvx) Negative Negative [facility] Neisseria gonorrhoeae rRNA [ Presence] in Cervix by MARIVEL with probe detectionOrdered By: Sandro Chin on 12-20-2024 N. gonorrhoeae rRNA MARIVEL+probe Ql (Cvx) Negative Negative [facility] Comment on above: Performed at: WB - [facility] [address] [id number] Director: Che Swenson MD, Phone: [phone] at: =G - [facility] [address] [id number] Director: Che Swenson MD, Phone: [phone] No Panel InformationOrdered By: Sandro Chin on 12-20-2024 IG Pap w/Ct-Ng & HPV (Off-Site) Note . [facility] Comment on above: TESTS RESULT FLAG UN ITS REF RANGE LAB Clinician Provided Cytology Information No. of containers..01 ThinPrep VialDIAGNOSIS: 01 NEGATIVE FOR INTRAEPITHELIAL LESION OR MALIGNANCY. CELLULAR CHANGES ASSOCIATED WITH ATROPHY AND INFLAMMATION ARE PRESENT.Specimen adequacy: 01 Satisfactory for evaluation. Endocervical component may not be distinguished in cases of atrophy.Performed by: 01 Nella Hines, Chemical Equipment Sales Engineer ([facility]). 01Note: Note 01 The Pap smear is a screening test designed to aid in the detection of premalignant and malignant conditions of the uterine cervix. It is not a diagnostic procedure and should not be used as the sole means of detecting cervical cancer. Both false-positive and false-negative reports do occur.Test Methodology: Note 01 The [employer] Health Safety Manager was unable to read this specimen. Therefore a manual review was performed.. 01 The HPV DNA reflex criteria were not met with this specimen result therefore, no HPV testing was performed. ------- FLAG LEGEND: L-Low Normal,H-High Normal,LL-Alert Low,HH-Alert High <-Panic Low,>-Panic High,A-Abnormal,AA-Critical Abnormal -----Performed at:01 [facility] [address] [place] [address] Che Swenson MD, Pap IG, CtNg, rfx HPV Aptima on 12-20-2024 PAP Chlamydia MARIVEL Negative Normal Negative [facility] Comment on above: Performed By: #### P AP [id number] #### [facility] , PAP Gonococcus Negative Normal Negative [facility] Comment on above: Result Comment: Perf ormed at: WB - [facility] [address] [facility], [place] [id number] Supervisor [employer]: Che Swenson MD, Phone: [phone] Performed at: = - [facility] [address] [place], [place] [id number] Supervisor [employer] Production: Che Swenson MD, Phone: [phone] PERFORMED BY: [facility] Shawna PARTIDA [place] [id number] PATHOLOGIST FOOD SERVICE HELPER CECY RODRIGUEZ M.D. Performed By: #### P AP [id number] #### [facility] , Pap IG Note Normal . [facility] Comment on above: Result Comment: TEST S RESULT FLAG UNITS REF RANGE LAB Clinician Provided Cytology Information No. of containers..01 ThinPrep Vial DIAGNOSIS: 01 NEGATIVE FOR INTRAEPITHELIAL LESION OR MALIGNANCY. CELLULAR CHANGES ASSOCIATED WITH ATROPHY AND INFLAMMATION ARE PRESENT. Specimen adequacy: 01 Satisfactory for evaluation. Endocervical component may not be distinguished in cases of atrophy. Performed by: Kenton Hines, Chemical Equipment Sales Engineer ([facility]) . 01 Note: Note 01 The Pap smear is a screening test designed to aid in the detection of premalignant and malignant conditions of the uterine cervix. It is not a diagnostic procedure and should not be used as the sole means of detecting cervical cancer. Both false-positive and false-negative reports do occur. Test Methodology: Note 01 The [employer] Health Safety Manager was unable to read this specimen. Therefore a manual review was performed. . 01 The HPV DNA reflex criteria were not met with this specimen result therefore, no HPV testing was performed. FLAG LEGEND: L-Low Normal,H-High Normal,LL-Alert Low,HH-Alert High <-Panic Low,>-Panic High,A-Abnormal,AA-Critical Abnormal Performed at: 01 [facility] [address] [place], [place] [address] Che Swenson MD, Performed By: #### P AP [id number] #### [facility] , Basophils Auto (Bld) [#/Vol] on 08-24-2024 Basophils (Bld) [#/Vol] Automated basophil count 0.0-0.1 [facility] Basophils/100 WBC Auto (Bld) on 08-24-2024 Basophils/100 WBC (Bld) Automated basophil % 0.2-2.0 [facility] Eosinophils/100 WBC Auto (Bl d)on 08-24-2024 Eosinophils/100 WBC (Bld) Automated eosinophil % 0.9-7.0 [facility] Erythrocyte distribution wid th Auto (RBC) [Ratio]on 08-24-2024 Erythrocyte distribution width (RBC) [Ratio] Erythrocyte distribution width [Ratio] by Automated count 11.0-15.0 [facility] Estimated glomerular filtrat ion rate (GFR) non- Americanon 08-24-2024 GFR/1.73 sq M.predicted among non-blacks MDRD (S/P/Bld) [Vol rate/Area] Estimated glomerular filtration rate (GFR) non- >=60 mL/min/1.73 m 2 [facility] Globulin Calc (S) [Mass/Vol] on 08-24-2024 Globulin (S) [Mass/Vol] Serum globulin measurement by calculation (mass/volume) [facility] Hematocrit Auto (Bld) [Volum e fraction]on 08-24-2024 Hematocrit (Bld) [Volume fraction] Hematocrit [Volume Fraction] of Blood by Automated count 36.0-48.0 [facility] Hemoglobin [Mass/volume] in Bloodon 08-24-2024 Hemoglobin (Bld) [Mass/Vol] Hemoglobin [Mass/volume] in Blood 12.0-16.0 [facility] Laboratory - Chemistry and C hemistry - challengeon 08-24-2024 Albumin [Mass/Vol] 3.9 g/dL 3.4-5.0 [facility] ALP [Catalytic activity/Vol] 75 U/L 46-116 [facility] ALT [Catalytic activity/Vol] 20 U/L 14-59 [facility] AST [Catalytic activity/Vol] 20 U/L 15-37 [facility] Bilirubin [Mass/Vol] 0.6 mg/dL 0.2-1.0 [facility] Calcium [Mass/Vol] 9.3 mg/dL 8.5-10.1 [facility] Chloride [Moles/Vol] 103 mmol/L 98-107 [facility] CO2 [Moles/Vol] 27.7 mmol/L 21.0-32.0 [facility] Creatinine [Mass/Vol] 0.69 mg/dL 0.55-1.02 [facility] GFR/1.73 sq M.predicted MDRD (S/P/Bld) [Vol rate/Area] mL/min/{1.73_m2} >=60 mL/min/1.73 m 2 [facility] Glucose [Mass/Vol] 106 mg/dL 74-106 [facility] Potassium [Moles/Vol] 4.2 mmol/L 3.5-5.1 [facility] Protein [Mass/Vol] 7.4 g/dL 6.4-8.2 [facility] Sodium [Moles/Vol] 135 mmol/L Low 136-145 [facility] Urea nitrogen [Mass/Vol] 11.0 mg/dL 7.0-18.0 [facility] Urea nitrogen/Creatinine [Mass ratio] 15.9 mg/mg [facility] Laboratory - Hematology and Cell countson 08-24-2024 Immature granulocytes/100 WBC (Bld) 0.2 % 0.0-0.5 [facility] Leukocytes [#/volume] correc audrey for nucleated erythrocytes in Blood by Automated counon 08-24-2024 WBC corrected for nucl RBC Auto (Bld) [#/Vol] Leukocytes [#/volume] corrected for nucleated erythrocytes in Blood by Automated coun 4.0-11.0 [facility] Lymphocytes Auto (Bld) [#/Vo l]on 08-24-2024 Lymphocytes (Bld) [#/Vol] Lymphocytes [#/volume] in Blood by Automated count 1.2-3.8 [facility] Lymphocytes/100 WBC Auto (Bl d)on 08-24-2024 Lymphocytes/100 WBC (Bld) Lymphocytes/100 leukocytes in Blood by Automated count 20.5-60.0 [facility] MCH Auto (RBC) [Entitic mass ]on 08-24-2024 MCH (RBC) [Entitic mass] MCH [Entitic mass] by Automated count 26.7-34.0 [facility] MCHC Auto (RBC) [Mass/Vol]on 08-24-2024 MCHC (RBC) [Mass/Vol] MCHC [Mass/volume] by Automated count 29.9-35.2 [facility] MCV Auto (RBC) [Entitic vol] on 08-24-2024 MCV (RBC) [Entitic vol] MCV [Entitic volume] by Automated count 81.0-99.0 [facility] Monocytes Auto (Bld) [#/Vol] on 08-24-2024 Monocytes (Bld) [#/Vol] Automated blood monocyte count 0.3-0.8 [facility] Monocytes/100 WBC Auto (Bld) on 08-24-2024 Monocytes/100 WBC (Bld) Automated monocyte % 1.7-12.0 [facility] Neutrophils Auto (Bld) [#/Vo l]on 08-24-2024 Neutrophils (Bld) [#/Vol] Neutrophils [#/volume] in Blood by Automated count 1.4-6.5 [facility] Neutrophils/100 WBC Auto (Bl d)on 08-24-2024 Neutrophils/100 WBC (Bld) Automated neutrophil % 43.0-75.0 [facility] No Panel Informationon 08-24 Eosinophils # (Auto) 0.1 10 3/uL 0.0-0.7 [facility] Immature Granulocyte # (Auto) 0.01 10 3/uL 0.00-0.03 [facility] Platelet mean volume Auto (B ld) [Entitic vol]on 08-24-2024 Platelet mean volume (Bld) [Entitic vol] Platelet mean volume [Entitic volume] in Blood by Automated count 9.5-13.5 [facility] Platelets Auto (Bld) [#/Vol] on 08-24-2024 Platelets (Bld) [#/Vol] Platelets [#/volume] in Blood by Automated count 150-450 [facility] RBC Auto (Bld) [#/Vol]on RBC (Bld) [#/Vol] Erythrocytes [#/volu me] in Blood by Automated count 4.20-5.40 [facility] Serum or plasma albumin/glob ulin mass ratioon 08-24-2024 Albumin/Globulin [Mass ratio] Serum or plasma albumin/globulin mass ratio [facility] Serum or plasma anion gap de terminationon 08-24-2024 Anion gap [Moles/Vol] Serum or plasma an ion gap determination [facility] Basophils Auto (Bld) [#/Vol] on 01-15-2024 Basophils (Bld) [#/Vol] 0.1 10 3/uL 0.0-0.1 [facility] Basophils/100 WBC Auto (Bld) on 01-15-2024 Basophils/100 WBC (Bld) 1.0 % 0.2-2.0 [facility] Eosinophils/100 WBC Auto (Bl d)on 01-15-2024 Eosinophils/100 WBC (Bld) 1.8 % 0.9-7.0 [facility] Erythrocyte distribution wid th Auto (RBC) [Ratio]on 01-15-2024 Erythrocyte distribution width (RBC) [Ratio] 13.1 % 11.0-15.0 [facility] Estimated glomerular filtrat ion rate (GFR) non- Americanon 01-15-2024 GFR/1.73 sq M.predicted among non-blacks MDRD (S/P/Bld) [Vol rate/Area] mL/min/{1.73_m2} >=60 [facility] Globulin Calc (S) [Mass/Vol] on 01-15-2024 Globulin (S) [Mass/Vol] 3.6 g/dL [facility] Hematocrit Auto (Bld) [Volum e fraction]on 01-15-2024 Hematocrit (Bld) [Volume fraction] 42.6 % 36.0-48.0 [facility] Hemoglobin [Mass/volume] in Bloodon 01-15-2024 Hemoglobin (Bld) [Mass/Vol] 13.7 g/dL 12.0-16.0 [facility] Laboratory - Chemistry and C hemistry - challengeon 01-15-2024 Albumin [Mass/Vol] 4.0 g/dL 3.4-5.0 [facility] ALP [Catalytic activity/Vol] 90 U/L 46-116 [facility] ALT [Catalytic activity/Vol] 22 U/L 14-59 [facility] AST [Catalytic activity/Vol] 21 U/L 15-37 [facility] Bilirubin [Mass/Vol] 0.6 mg/dL 0.2-1.0 [facility] Calcium [Mass/Vol] 9.6 mg/dL 8.5-10.1 [facility] Chloride [Moles/Vol] 102 mmol/L 98-107 [facility] CO2 [Moles/Vol] 26.2 mmol/L 21.0-32.0 [facility] Creatinine [Mass/Vol] 0.60 mg/dL 0.55-1.02 [facility] GFR/1.73 sq M.predicted MDRD (S/P/Bld) [Vol rate/Area] mL/min/{1.73_m2} >=60 [facility] Glucose [Mass/Vol] 107 mg/dL High 74-106 [facility] Potassium [Moles/Vol] 4.2 mmol/L 3.5-5.1 [facility] Protein [Mass/Vol] 7.6 g/dL 6.4-8.2 [facility] Sodium [Moles/Vol] 136 mmol/L 136-145 [facility] Urea nitrogen [Mass/Vol] 13.0 mg/dL 7.0-18.0 [facility] Urea nitrogen/Creatinine [Mass ratio] 21.7 mg/mg [facility] Laboratory - Hematology and Cell countson 01-15-2024 Immature granulocytes/100 WBC (Bld) 0.2 % 0.0-0.5 [facility] Leukocytes [#/volume] correc audrey for nucleated erythrocytes in Blood by Automated counon 01-15-2024 WBC corrected for nucl RBC Auto (Bld) [#/Vol] 5.0 10 3/uL 4.0-11.0 [facility] Lymphocytes Auto (Bld) [#/Vo l]on 01-15-2024 Lymphocytes (Bld) [#/Vol] 2.0 10 3/uL 1.2-3.8 [facility] Lymphocytes/100 WBC Auto (Bl d)on 01-15-2024 Lymphocytes/100 WBC (Bld) 39.4 % 20.5-60.0 [facility] MCH Auto (RBC) [Entitic mass ]on 01-15-2024 MCH (RBC) [Entitic mass] 32.2 pg 26.7-34.0 [facility] MCHC Auto (RBC) [Mass/Vol]on 01-15-2024 MCHC (RBC) [Mass/Vol] 32.2 g/dL 29.9-35.2 [facility] MCV Auto (RBC) [Entitic vol] on 01-15-2024 MCV (RBC) [Entitic vol] 100.0 fL High 81.0-99.0 [facility] Monocytes Auto (Bld) [#/Vol] on 01-15-2024 Monocytes (Bld) [#/Vol] 0.5 10 3/uL 0.3-0.8 [facility] Monocytes/100 WBC Auto (Bld) on 01-15-2024 Monocytes/100 WBC (Bld) 9.1 % 1.7-12.0 [facility] Neutrophils Auto (Bld) [#/Vo l]on 01-15-2024 Neutrophils (Bld) [#/Vol] 2.4 10 3/uL 1.4-6.5 [facility] Neutrophils/100 WBC Auto (Bl d)on 01-15-2024 Neutrophils/100 WBC (Bld) 48.5 % 43.0-75.0 [facility] No Panel Informationon 01-14 Eosinophils # (Auto) 0.1 10 3/uL 0.0-0.7 [facility] Immature Granulocyte # (Auto) 0.01 10 3/uL 0.00-0.03 [facility] Platelet mean volume Auto (B ld) [Entitic vol]on 01-15-2024 Platelet mean volume (Bld) [Entitic vol] 10.9 fL 9.5-13.5 [facility] Platelets Auto (Bld) [#/Vol] on 01-15-2024 Platelets (Bld) [#/Vol] 197 10 3/uL 150-450 [facility] RBC Auto (Bld) [#/Vol]on RBC (Bld) [#/Vol] 4.26 10 6/uL 4.20-5.40 [facility] Serum or plasma albumin/glob ulin mass ratioon 01-15-2024 Albumin/Globulin [Mass ratio] 1.1 {ratio} [facility] Serum or plasma anion gap de terminationon 01-15-2024 Anion gap [Moles/Vol] 12.0 mmol/L [facility] Basophils Auto (Bld) [#/Vol] on 11-26-2023 Basophils (Bld) [#/Vol] 0.0 10 3/uL 0.0-0.1 [facility] Basophils/100 WBC Auto (Bld) on 11-26-2023 Basophils/100 WBC (Bld) 0.9 % 0.2-2.0 [facility] Cholesterol in LDL Calc [Mas s/Vol]on 11-26-2023 Cholesterol in LDL [Mass/Vol] 179.0 mg/dL [facility] Comment on above: <100 mg/dl [id number] 0-129 mg/dl NEAR OR ABOVE [id number] mg/dl BORDERLINE [id number] mg/dl HIGH>190 mg/dl VERY HIGH Cholesterol in VLDL Calc [Ma ss/Vol]on 11-26-2023 Cholesterol in VLDL [Mass/Vol] 28.0 mg/dL [facility] Eosinophils/100 WBC Auto (Bl d)on 11-26-2023 Eosinophils/100 WBC (Bld) 2.4 % 0.9-7.0 [facility] Erythrocyte distribution wid th Auto (RBC) [Ratio]on 11-26-2023 Erythrocyte distribution width (RBC) [Ratio] 13.2 % 11.0-15.0 [facility] Estimated glomerular filtrat ion rate (GFR) non- Americanon 11-26-2023 GFR/1.73 sq M.predicted among non-blacks MDRD (S/P/Bld) [Vol rate/Area] mL/min/{1.73_m2} >=60 [facility] Globulin Calc (S) [Mass/Vol] on 11-26-2023 Globulin (S) [Mass/Vol] 3.5 g/dL [facility] Glucose mean value [Mass/vol ume] in Blood Estimated from glycated hemoglobinon 11-26-2023 Average glucose Estimated from glycated hemoglobin (Bld) [Mass/Vol] 94 mg/dL [facility] Hematocrit Auto (Bld) [Volum e fraction]on 11-26-2023 Hematocrit (Bld) [Volume fraction] 41.5 % 36.0-48.0 [facility] Hemoglobin [Mass/volume] in Bloodon 11-26-2023 Hemoglobin (Bld) [Mass/Vol] 13.4 g/dL 12.0-16.0 [facility] Laboratory - Chemistry and C hemistry - challengeon 11-26-2023 Albumin [Mass/Vol] 3.9 g/dL 3.4-5.0 [facility] ALP [Catalytic activity/Vol] 101 U/L 46-116 [facility] ALT [Catalytic activity/Vol] 29 U/L 14-59 [facility] AST [Catalytic activity/Vol] 19 U/L 15-37 [facility] Bilirubin [Mass/Vol] 0.5 mg/dL 0.2-1.0 [facility] Calcium [Mass/Vol] 9.5 mg/dL 8.5-10.1 [facility] Chloride [Moles/Vol] 105 mmol/L 98-107 [facility] Cholesterol [Mass/Vol] 250 mg/dL High <=[facility] Cholesterol in HDL [Mass/Vol] 43 mg/dL 40-60 [facility] Comment on above: > or =60 mg/dl - LOW CARDIOVASCULAR RISK<40 mg/dl - HIGH CARDIOVASCULAR RISK CO2 [Moles/Vol] 28.5 mmol/L 21.0-32.0 [facility] Creatinine [Mass/Vol] 0.57 mg/dL 0.55-1.02 [facility] GFR/1.73 sq M.predicted MDRD (S/P/Bld) [Vol rate/Area] mL/min/{1.73_m2} >=60 [facility] Glucose [Mass/Vol] 100 mg/dL 74-106 [facility] Potassium [Moles/Vol] 4.0 mmol/L 3.5-5.1 [facility] Protein [Mass/Vol] 7.4 g/dL 6.4-8.2 [facility] Sodium [Moles/Vol] 142 mmol/L 136-145 [facility] Triglyceride [Mass/Vol] 140 mg/dL <=150 [facility] TSH Qn 1.818 m[IU]/L 0.358-3.740 [facility] Urea nitrogen [Mass/Vol] 16.0 mg/dL 7.0-18.0 [facility] Urea nitrogen/Creatinine [Mass ratio] 28.1 mg/mg [facility] Laboratory - Hematology and Cell countson 11-26-2023 HbA1c (Bld) [Mass fraction] 4.9 % 4.5-6.2 [facility] Comment on above: ADA RECOMMENDED LIMI T 4.0 - 6.0ADA THERAPEUTIC TARGET < 7.0ACTION SUGGESTED> 7.0 Immature granulocytes/100 WBC (Bld) 0.2 % 0.0-0.5 [facility] Leukocytes [#/volume] correc audrey for nucleated erythrocytes in Blood by Automated counon 11-26-2023 WBC corrected for nucl RBC Auto (Bld) [#/Vol] 4.6 10 3/uL 4.0-11.0 [facility] Lymphocytes Auto (Bld) [#/Vo l]on 11-26-2023 Lymphocytes (Bld) [#/Vol] 2.1 10 3/uL 1.2-3.8 [facility] Lymphocytes/100 WBC Auto (Bl d)on 11-26-2023 Lymphocytes/100 WBC (Bld) 44.7 % 20.5-60.0 [facility] MCH Auto (RBC) [Entitic mass ]on 11-26-2023 MCH (RBC) [Entitic mass] 31.5 pg 26.7-34.0 [facility] MCHC Auto (RBC) [Mass/Vol]on 11-26-2023 MCHC (RBC) [Mass/Vol] 32.3 g/dL 29.9-35.2 [facility] MCV Auto (RBC) [Entitic vol] on 11-26-2023 MCV (RBC) [Entitic vol] 97.4 fL 81.0-99.0 [facility] Monocytes Auto (Bld) [#/Vol] on 11-26-2023 Monocytes (Bld) [#/Vol] 0.4 10 3/uL 0.3-0.8 [facility] Monocytes/100 WBC Auto (Bld) on 11-26-2023 Monocytes/100 WBC (Bld) 8.5 % 1.7-12.0 [facility] Neutrophils Auto (Bld) [#/Vo l]on 11-26-2023 Neutrophils (Bld) [#/Vol] 2.0 10 3/uL 1.4-6.5 [facility] Neutrophils/100 WBC Auto (Bl d)on 11-26-2023 Neutrophils/100 WBC (Bld) 43.3 % 43.0-75.0 [facility] No Panel Informationon 11-25 Eosinophils # (Auto) 0.1 10 3/uL 0.0-0.7 [facility] Immature Granulocyte # (Auto) 0.01 10 3/uL 0.00-0.03 [facility] Platelet mean volume Auto (B ld) [Entitic vol]on 11-26-2023 Platelet mean volume (Bld) [Entitic vol] 11.4 fL 9.5-13.5 [facility] Platelets Auto (Bld) [#/Vol] on 11-26-2023 Platelets (Bld) [#/Vol] 210 10 3/uL 150-450 [facility] RBC Auto (Bld) [#/Vol]on RBC (Bld) [#/Vol] 4.26 10 6/uL 4.20-5.40 [facility] Serum or plasma albumin/glob ulin mass ratioon 11-26-2023 Albumin/Globulin [Mass ratio] 1.1 {ratio} [facility] Serum or plasma anion gap de terminationon 11-26-2023 Anion gap [Moles/Vol] 12.5 mmol/L [facility] Serum or plasma total choles terol/high density lipoprotein (HDL) cholesterol mass johan 11-26-2023 Cholesterol.total/Chol esterol in HDL [Mass ratio] 5.8 {ratio} [facility] Comment on above: 3.3 - 4.4 LOW RISK4. 4 - 7.1 AVERAGE RISK7.1 - 11.0 MODERATE RISK>11.0 HIGH RISK Basophils Auto (Bld) [#/Vol] on 09-18-2023 Basophils (Bld) [#/Vol] 0.1 10 3/uL 0.0-0.1 [facility] Basophils/100 WBC Auto (Bld) on 09-18-2023 Basophils/100 WBC (Bld) 1.1 % 0.2-2.0 [facility] Eosinophils/100 WBC Auto (Bl d)on 09-18-2023 Eosinophils/100 WBC (Bld) 2.2 % 0.9-7.0 [facility] Erythrocyte distribution wid th Auto (RBC) [Ratio]on 09-18-2023 Erythrocyte distribution width (RBC) [Ratio] 12.2 % 11.0-15.0 [facility] Estimated glomerular filtrat ion rate (GFR) non- Americanon 09-18-2023 GFR/1.73 sq M.predicted among non-blacks MDRD (S/P/Bld) [Vol rate/Area] mL/min/{1.73_m2} >=60 [facility] Globulin Calc (S) [Mass/Vol] on 09-18-2023 Globulin (S) [Mass/Vol] 3.3 g/dL [facility] Hematocrit Auto (Bld) [Volum e fraction]on 09-18-2023 Hematocrit (Bld) [Volume fraction] 42.5 % 36.0-48.0 [facility] Hemoglobin [Mass/volume] in Bloodon 09-18-2023 Hemoglobin (Bld) [Mass/Vol] 13.5 g/dL 12.0-16.0 [facility] Laboratory - Chemistry and C hemistry - challengeon 09-18-2023 Albumin [Mass/Vol] 3.8 g/dL 3.4-5.0 [facility] ALP [Catalytic activity/Vol] 89 U/L 46-116 [facility] ALT [Catalytic activity/Vol] 26 U/L 14-59 [facility] AST [Catalytic activity/Vol] 19 U/L 15-37 [facility] Bilirubin [Mass/Vol] 0.4 mg/dL 0.2-1.0 [facility] Calcium [Mass/Vol] 8.9 mg/dL 8.5-10.1 [facility] Chloride [Moles/Vol] 105 mmol/L 98-107 [facility] CO2 [Moles/Vol] 29.0 mmol/L 21.0-32.0 [facility] Creatinine [Mass/Vol] 0.71 mg/dL 0.55-1.02 [facility] GFR/1.73 sq M.predicted MDRD (S/P/Bld) [Vol rate/Area] mL/min/{1.73_m2} >=60 [facility] Glucose [Mass/Vol] 84 mg/dL 74-106 [facility] Potassium [Moles/Vol] 4.2 mmol/L 3.5-5.1 [facility] Protein [Mass/Vol] 7.1 g/dL 6.4-8.2 [facility] Sodium [Moles/Vol] 142 mmol/L 136-145 [facility] Urea nitrogen [Mass/Vol] 13.0 mg/dL 7.0-18.0 [facility] Urea nitrogen/Creatinine [Mass ratio] 18.3 mg/mg [facility] Laboratory - Hematology and Cell countson 09-18-2023 Immature granulocytes/100 WBC (Bld) 0.2 % 0.0-0.5 [facility] Leukocytes [#/volume] correc audrey for nucleated erythrocytes in Blood by Automated counon 09-18-2023 WBC corrected for nucl RBC Auto (Bld) [#/Vol] 4.6 10 3/uL 4.0-11.0 [facility] Lymphocytes Auto (Bld) [#/Vo l]on 09-18-2023 Lymphocytes (Bld) [#/Vol] 2.6 10 3/uL 1.2-3.8 [facility] Lymphocytes/100 WBC Auto (Bl d)on 09-18-2023 Lymphocytes/100 WBC (Bld) 56.8 % 20.5-60.0 [facility] MCH Auto (RBC) [Entitic mass ]on 09-18-2023 MCH (RBC) [Entitic mass] 31.5 pg 26.7-34.0 [facility] MCHC Auto (RBC) [Mass/Vol]on 09-18-2023 MCHC (RBC) [Mass/Vol] 31.8 g/dL 29.9-35.2 [facility] MCV Auto (RBC) [Entitic vol] on 09-18-2023 MCV (RBC) [Entitic vol] 99.1 fL 81.0-99.0 [facility] Monocytes Auto (Bld) [#/Vol] on 09-18-2023 Monocytes (Bld) [#/Vol] 0.4 10 3/uL 0.3-0.8 [facility] Monocytes/100 WBC Auto (Bld) on 09-18-2023 Monocytes/100 WBC (Bld) 8.2 % 1.7-12.0 [facility] Neutrophils Auto (Bld) [#/Vo l]on 09-18-2023 Neutrophils (Bld) [#/Vol] 1.5 10 3/uL 1.4-6.5 [facility] Neutrophils/100 WBC Auto (Bl d)on 09-18-2023 Neutrophils/100 WBC (Bld) 31.5 % 43.0-75.0 [facility] No Panel Informationon 09-17 Eosinophils # (Auto) 0.1 10 3/uL 0.0-0.7 [facility] Immature Granulocyte # (Auto) 0.01 10 3/uL 0.00-0.03 [facility] Platelet mean volume Auto (B ld) [Entitic vol]on 09-18-2023 Platelet mean volume (Bld) [Entitic vol] 11.1 fL 9.5-13.5 [facility] Platelets Auto (Bld) [#/Vol] on 09-18-2023 Platelets (Bld) [#/Vol] 196 10 3/uL 150-450 [facility] RBC Auto (Bld) [#/Vol]on RBC (Bld) [#/Vol] 4.29 10 6/uL 4.20-5.40 [facility] Serum or plasma albumin/glob ulin mass ratioon 09-18-2023 Albumin/Globulin [Mass ratio] 1.2 {ratio} [facility] Serum or plasma anion gap de terminationon 09-18-2023 Anion gap [Moles/Vol] 12.2 mmol/L [facility] Alanine aminotransferase [En zymatic activity/volume] in Serum or PlasmaOrdered By: Isaías Jordan on 03-20-2023 ALT [Catalytic activity/Vol] 16 U/L [facility] ALT [Catalytic activity/Vol] Alanine aminotransferase [Enzymatic activity/volume] in Serum or Plasma [facility] Albumin [Mass/volume] in Ser um or Plasma by Bromocresol green (BCG) dye binding methoOrdered By: Isaías Jordan on 03-20-2023 Albumin BCG dye [Mass/Vol] 4.4 g/dL 3.5-5.7 [facility] Albumin BCG dye [Mass/Vol] Albumin [Mass/volume] in Serum or Plasma by Bromocresol green (BCG) dye binding metho 3.5-5.7 [facility] Alkaline phosphatase [Enzyma tic activity/volume] in Serum or PlasmaOrdered By: Isaías Jordan on 03-20-2023 ALP [Catalytic activity/Vol] 88 U/L [facility] ALP [Catalytic activity/Vol] Alkaline phosphatase [Enzymatic activity/volume] in Serum or Plasma [facility] Aspartate aminotransferase [ Enzymatic activity/volume] in Serum or PlasmaOrdered By: Isaías Jordan on 03-20-2023 AST [Catalytic activity/Vol] 21 U/L [facility] AST [Catalytic activity/Vol] Aspartate aminotransferase [Enzymatic activity/volume] in Serum or Plasma [facility] Basophils Auto (Bld) [#/Vol] Ordered By: Isaías Jordan on 03-20-2023 Basophils (Bld) [#/Vol] 0.1 10*3/uL 0.0-0.2 [facility] Basophils (Bld) [#/Vol] Automated basophil count 0.0-0.2 [facility] Basophils/100 WBC Auto (Bld) Ordered By: Isaías Jordan on 03-20-2023 Basophils/100 WBC (Bld) 1.2 % . [facility] Basophils/100 WBC (d) Automated basophil % . [facility] Bilirubin.total [Mass/volume ] in Serum or PlasmaOrdered By: Isaías Jordan on 03-20-2023 Bilirubin [Mass/Vol] 0.8 mg/dL 0.3-1.0 [facility] Bilirubin [Mass/Vol] Bilirubin.total [Mass/volume] in Serum or Plasma 0.3-1.0 [facility] Calcium [Mass/volume] in Ser um or PlasmaOrdered By: Isaías Jordan on 03-20-2023 Calcium [Mass/Vol] 10.3 mg/dL 8.6-10.3 [facility] Calcium [Mass/Vol] Calcium [Mass/volume ] in Serum or Plasma 8.6-10.3 [facility] Carbon dioxide, total [Moles /volume] in Serum or PlasmaOrdered By: Isaías Jordan on 03-20-2023 CO2 [Moles/Vol] 27.3 mmol/L 21.0-31.0 [facility] CO2 [Moles/Vol] Carbon dioxide, tota l [Moles/volume] in Serum or Plasma 21.0-31.0 [facility] Chloride [Moles/volume] in S daljit or PlasmaOrdered By: Isaías Jordan on 03-20-2023 Chloride [Moles/Vol] 105 mmol/L 98-107 [facility] Chloride [Moles/Vol] Chloride [Moles/vol ume] in Serum or Plasma 98-107 [facility] Creatinine [Mass/volume] in Serum or PlasmaOrdered By: Isaías Jordan on 03-20-2023 Creatinine [Mass/Vol] 0.73 mg/dL 0.60-1.20 [facility] Creatinine [Mass/Vol] Creatinine [Mass/v olume] in Serum or Plasma 0.60-1.20 [facility] Eosinophils Auto (Bld) [#/Vo l]Ordered By: Isaías Jordan on 03-20-2023 Eosinophils (Bld) [#/Vol] 0.1 10*3/uL 0.0-0.45 [facility] Eosinophils (Bld) [#/Vol] Automated eosinophil count 0.0-0.45 [facility] Eosinophils/100 WBC Auto (Bl d)Ordered By: Isaías Jordan on 03-20-2023 Eosinophils/100 WBC (Bld) 2.8 % . [facility] Eosinophils/100 WBC (Bld) Automated eosinophil % . [facility] Erythrocyte distribution wid th Auto (RBC) [Ratio]Ordered By: Isaías Jordan on 03-20-2023 Erythrocyte distribution width (RBC) [Ratio] 13.7 % 11.9-15.3 [facility] Erythrocyte distribution width (RBC) [Ratio] Erythrocyte distribution width [Ratio] by Automated count 11.9-15.3 [facility] Globulin Calc (S) [Mass/Vol] Ordered By: Isaías Jordan on 03-20-2023 Globulin (S) [Mass/Vol] 2.9 g/dL [facility] Globulin (S) [Mass/Vol] Serum globulin measurement by calculation (mass/volume) [facility] Glucose [Mass/volume] in Ser um or PlasmaOrdered By: Isaías Jordan on 03-20-2023 Glucose [Mass/Vol] 80 mg/dL 70-100 [facility] Comment on above: ADA recommended refe rence rangeRandom Glucose Reference Range is dependent on time and content of last meal. Glucose of more than 200 mg/dL in a nonstressed, ambulatory subject supports the diagnosis of Diabetes Mellitus. Glucose [Mass/Vol] Glucose [Mass/volume ] in Serum or Plasma 70-100 [facility] Comment on above: ADA recommended refe rence rangeRandom Glucose Reference Range is dependent on time and content of last meal. Glucose of more than 200 mg/dL in a nonstressed, ambulatory subject supports the diagnosis of Diabetes Mellitus. Hematocrit Auto (Bld) [Volum e fraction]Ordered By: Isaías Jordan on 03-20-2023 Hematocrit (Bld) [Volume fraction] 40.8 % 34.0-46.4 [facility] Hematocrit (Bld) [Volume fraction] Hematocrit [Volume Fraction] of Blood by Automated count 34.0-46.4 [facility] Hemoglobin [Mass/volume] in BloodOrdered By: Isaías Jordan on 03-20-2023 Hemoglobin (Bld) [Mass/Vol] 13.8 g/dL 11.8-15.4 [facility] Hemoglobin (Bld) [Mass/Vol] Hemoglobin [Mass/volume] in Blood 11.8-15.4 [facility] Leukocytes [#/volume] correc audrey for nucleated erythrocytes in Blood by Automated counOrdered By: Isaías Jordan on 03-20-2023 WBC corrected for nucl RBC Auto (Bld) [#/Vol] 5.1 10*3/uL 3.8-11.6 [facility] WBC corrected for nucl RBC Auto (Bld) [#/Vol] Leukocytes [#/volume] corrected for nucleated erythrocytes in Blood by Automated coun 3.8-11.6 [facility] Lymphocytes Auto (Bld) [#/Vo l]Ordered By: Isaías Jordan on 03-20-2023 Lymphocytes (Bld) [#/Vol] 2.0 10*3/uL 1.00-4.8 [facility] Lymphocytes (Bld) [#/Vol] Lymphocytes [#/volume] in Blood by Automated count 1.00-4.8 [facility] Lymphocytes/100 WBC Auto (Bl d)Ordered By: Isaías Jordan on 03-20-2023 Lymphocytes/100 WBC (Bld) 39.4 % . [facility] Lymphocytes/100 WBC (Bld) Lymphocytes/100 leukocytes in Blood by Automated count . [facility] MCH Auto (RBC) [Entitic mass ]Ordered By: Isaías Jordan on 03-20-2023 MCH (RBC) [Entitic mass] 32.3 pg 24.7-34.3 [facility] MCH (RBC) [Entitic mass] MCH [Entitic mass] by Automated count 24.7-34.3 [facility] MCHC Auto (RBC) [Mass/Vol]Or dered By: Isaías Jordan on 03-20-2023 MCHC (RBC) [Mass/Vol] 33.7 g/dL 32.0-35.0 [facility] MCHC (RBC) [Mass/Vol] MCHC [Mass/volume] by Automated count 32.0-35.0 [facility] MCV Auto (RBC) [Entitic vol] Ordered By: Isaías Jordan on 03-20-2023 MCV (RBC) [Entitic vol] 95.7 fL 80-100 [facility] MCV (RBC) [Entitic vol] MCV [Entitic volume] by Automated count 80-100 [facility] Monocytes Auto (Bld) [#/Vol] Ordered By: Isaías Jordan on 03-20-2023 Monocytes (Bld) [#/Vol] 0.5 10*3/uL 0.0-0.8 [facility] Monocytes (Bld) [#/Vol] Automated blood monocyte count 0.0-0.8 [facility] Monocytes/100 WBC Auto (Bld) Ordered By: Isaías Jordan on 03-20-2023 Monocytes/100 WBC (Bld) 9.0 % . [facility] Monocytes/100 WBC (Bld) Automated monocyte % . [facility] Neutrophils Auto (Bld) [#/Vo l]Ordered By: Isaías Jordan on 03-20-2023 Neutrophils (Bld) [#/Vol] 2.4 10*3/uL 1.8-7.7 [facility] Neutrophils (Bld) [#/Vol] Neutrophils [#/volume] in Blood by Automated count 1.8-7.7 [facility] Neutrophils/100 WBC Auto (Bl d)Ordered By: Isaías Jordan on 03-20-2023 Neutrophils/100 WBC (Bld) 47.6 % . [facility] Neutrophils/100 WBC (Bld) Automated neutrophil % . [facility] No Panel InformationOrdered By: Isaías Jordan on 03-20-2023 Estimated GFR (CKD-EPI) > 60.0 mL/Min [facility] Creatinine Clearance (Chem 86.44 [facility] Nucleated erythrocytes [Pres ence] in Blood by Automated countOrdered By: Isaías Jordan on 03-20-2023 Nucleated RBC Auto Ql (Bld) 0.1 /100{WBC} 0-0.5 [facility] Nucleated RBC Auto Ql (Bld) Nucleated erythrocytes [Presence] in Blood by Automated count 0-0.5 [facility] Platelet mean volume Auto (B ld) [Entitic vol]Ordered By: Isaías Jordan on 03-20-2023 Platelet mean volume (Bld) [Entitic vol] 8.9 fL 6.3-10.7 [facility] Platelet mean volume (Bld) [Entitic vol] Platelet mean volume [Entitic volume] in Blood by Automated count 6.3-10.7 [facility] Platelets Auto (Bld) [#/Vol] Ordered By: Isaías Jordan on 03-20-2023 Platelets (Bld) [#/Vol] 198 10*3/uL 150-450 [facility] Platelets (Bld) [#/Vol] Platelets [#/volume] in Blood by Automated count 150-450 [facility] Potassium [Moles/volume] in Serum or PlasmaOrdered By: Isaías Jordan on 03-20-2023 Potassium [Moles/Vol] 4.3 mmol/L 3.5-5.1 [facility] Potassium [Moles/Vol] Potassium [Moles/v olume] in Serum or Plasma 3.5-5.1 [facility] Protein [Mass/volume] in Ser um or PlasmaOrdered By: Isaías Jordan on 03-20-2023 Protein [Mass/Vol] 7.3 g/dL 6.4-8.9 [facility] Protein [Mass/Vol] Protein [Mass/volume ] in Serum or Plasma 6.4-8.9 [facility] RBC Auto (Bld) [#/Vol]Ordere d By: Isaías Jordan on 03-20-2023 RBC (Bld) [#/Vol] 4.26 10*6/uL 3.60-5.00 [facility] RBC (Bld) [#/Vol] Erythrocytes [#/volu me] in Blood by Automated count 3.60-5.00 [facility] Serum or plasma albumin/glob ulin mass ratioOrdered By: Isaías Jordan on 03-20-2023 Albumin/Globulin [Mass ratio] 1.5 {ratio} [facility] Albumin/Globulin [Mass ratio] Serum or plasma albumin/globulin mass ratio [facility] Serum or plasma anion gap de terminationOrdered By: Isaías Jordan on 03-20-2023 Anion gap [Moles/Vol] 11.0 mmol/L 6.0-15.0 [facility] Anion gap [Moles/Vol] Serum or plasma an ion gap determination 6.0-15.0 [facility] Serum or plasma carcinoembry onic antigen measurement (mass/volume)Ordered By: Isaías Jordan on 03-20-2023 Carcinoembryonic Ag [Mass/Vol] 3.3 ng/mL High 0.0-3.0 [facility] Carcinoembryonic Ag [Mass/Vol] Serum or plasma carcinoembryonic antigen measurement (mass/volume) High 0.0-3.0 [facility] Sodium [Moles/volume] in Ser um or PlasmaOrdered By: Isaías Jordan on 03-20-2023 Sodium [Moles/Vol] 139 mmol/L 136-145 [facility] Sodium [Moles/Vol] Sodium [Moles/volume ] in Serum or Plasma 136-145 [facility] Urea nitrogen [Mass/volume] in Serum or PlasmaOrdered By: Isaías Jordan on 03-20-2023 Urea nitrogen [Mass/Vol] 16 mg/dL 01-28 [facility] Urea nitrogen [Mass/Vol] Urea nitrogen [Mass/volume] in Serum or Plasma 01-28 [facility] WBC Auto (Bld) [#/Vol]Ordere d By: Isaías Jordan on 03-20-2023 WBC (Bld) [#/Vol] 5.1 10*3/uL 3.8-11.6 [facility] WBC (Bld) [#/Vol] Leukocytes [#/volume ] in Blood by Automated count 3.8-11.6 [facility] CBC AUTO DIFFon 11-16-2022 BASO # 0.0 103/ul Normal 0.0-0.1 [facility] Comment on above: Performed By: #### C BC #### [facility] [address] [address] [address] Doreen Betancourt Basophils/100 WBC (Bld) 0.6 % Normal 0.2-2.0 [facility] Comment on above: Performed By: #### C BC #### [facility] [address] [place] [address] Dr. Doreen Betancourt EO # 0.0 103/ul Normal 0.0-0.7 [facility] Comment on above: Performed By: #### C BC #### [facility] [address] [place] [address] Dr. Doreen Betancourt Eosinophils/100 WBC (Bld) 0.6 % Critically low 0.9-7.0 [facility] Comment on above: Performed By: #### C BC #### [facility] [address] [place] [address] Dr. Droeen Betancourt Erythrocyte distribution width (RBC) [Ratio] 13.7 % Normal 11.0-15.0 [facility] Comment on above: Performed By: #### C BC #### [facility] [address] [place] [address] Dr. Doreen Betancourt Hematocrit (Bld) [Volume fraction] 41.0 % Normal 36.0-48.0 [facility] Comment on above: Performed By: #### C BC #### [facility] [address] [place] [address] Dr. Doreen Betancourt Hemoglobin (Bld) [Mass/Vol] 13.1 g/dL Normal 12.0-16.0 [facility] Comment on above: Performed By: #### C BC #### [facility] [address] [place] [address] Dr. Doreen Betancourt IG # 0.00 10e3/ul Normal 0.00-0.03 [facility] Comment on above: Performed By: #### C BC #### [facility] [address] [place] [address] Dr. Doreen Betancourt IG % 0.0 % Normal 0.0-0.5 [facility] Comment on above: Performed By: #### C BC #### [facility] [address] [place] [address] Dr. Doreen Betancourt LYMPH # 2.0 103/ul Normal 1.2-3.8 [facility] Comment on above: Performed By: #### C BC #### [facility] [address] [place] [address] Dr. Doreen Betancourt Lymphocytes/100 WBC (Bld) 55.3 % Normal 20.5-60.0 [facility] Comment on above: Performed By: #### C BC #### [facility] [address] [place] [address] Dr. Doreen Betancourt MANUAL DIFF REQ NO Normal [facility] Comment on above: Performed By: #### C BC #### [facility] [address] [place] [address] Dr. Doreen Betancourt MCH (RBC) [Entitic mass] 33.2 pg Normal 26.7-34.0 [facility] Comment on above: Performed By: #### C BC #### [facility] [address] [place] [address] Dr. Doreen Betancourt MCHC (RBC) [Mass/Vol] 32.0 g/dL Normal 29.9-35.2 [facility] Comment on above: Performed By: #### C BC #### [facility] [address] [place] [address] Dr. Doreen Betancourt MCV (RBC) [Entitic vol] 104.1 fL Critically high 81.0-99.0 [facility] Comment on above: Performed By: #### C BC #### [facility] [address] [place] [address] Dr. Doreen Betancourt MONO # 0.7 103/ul Normal 0.3-0.8 [facility] Comment on above: Performed By: #### C BC #### [facility] [address] [place] [address] Dr. Doreen Betancourt Monocytes/100 WBC (Bld) 18.7 % Critically high 1.7-12.0 [facility] Comment on above: Performed By: #### C BC #### [facility] [address] [place] [address] Dr. Doreen Betancourt NEUT # 0.9 103/ul Critically low 1.4-6.5 [facility] Comment on above: Performed By: #### C BC #### [facility] [address] [place] [address] Dr. Doreen Betancourt Neutrophils/100 WBC (Bld) 24.8 % Critically low 43.0-75.0 [facility] Comment on above: Performed By: #### C BC #### [facility] [address] [place] [address] Dr. Doreen Betancourt Platelet mean volume (Bld) [Entitic vol] 10.5 fL Normal 9.5-13.5 [facility] Comment on above: Performed By: #### C BC #### [facility] [address] [place] [address] Dr. Doreen Betancourt PLT 121 103/ul Critically low 150-450 [facility] Comment on above: Performed By: #### C BC #### [facility] [address] [place] [address] Dr. Doreen Betancourt RBC 3.94 106/ul Critically low 4.20-5.40 [facility] Comment on above: Performed By: #### C BC #### [facility] [address] [place] [address] Dr. Doreen Betancourt WBC 3.6 103/ul Critically low 4.0-11.0 [facility] Comment on above: Performed By: #### C BC #### [facility] [address] [place] [address] Dr. Doreen Betancourt MAGNESIUMon 11-16-2022 Magnesium [Mass/Vol] 2.0 mg/dL Normal 1.8-2.4 [facility] Comment on above: Performed By: #### M G, CMP #### [facility] [address] [place] [address] Dr. Doreen Betancourt PROF 14(COMP METB)on 023 Albumin [Mass/Vol] 3.7 g/dL Normal 3.4-5.0 [facility] Comment on above: Performed By: #### M G, CMP #### [facility] [address] [place] [address] Dr. Doreen Betancourt Albumin/Globulin [Mass ratio] 1.0 {ratio} Normal [facility] Comment on above: Performed By: #### M G, CMP #### [facility] [address] [place] [address] Dr. Doreen Betancourt ALP [Catalytic activity/Vol] 161 U/L Critically high 46-116 [facility] Comment on above: Performed By: #### M G, CMP #### [facility] [address] [place] [address] Dr. Doreen Betancourt ALT [Catalytic activity/Vol] 49 U/L Normal 14-59 [facility] Comment on above: Performed By: #### M G, CMP #### [facility] [address] [place] [address] Dr. Doreen Betancourt Anion gap [Moles/Vol] 9.8 mmol/L Normal [facility] Comment on above: Performed By: #### M G, CMP #### [facility] [address] [place] [address] Dr. Doreen Betancourt AST [Catalytic activity/Vol] 44 U/L Critically high 15-37 [facility] Comment on above: Performed By: #### M G, CMP #### [facility] [address] [place] [address] Dr. Doreen Betancourt Bilirubin [Mass/Vol] 0.4 mg/dL Normal 0.2-1.0 [facility] Comment on above: Performed By: #### M G, CMP #### [facility] [address] [place] [address] Dr. Doreen Betancourt Calcium [Mass/Vol] 9.6 mg/dL Normal 8.5-10.1 [facility] Comment on above: Performed By: #### M G, CMP #### [facility] [address] [place] [address] Dr. Doreen Betancourt Chloride [Moles/Vol] 106 mmol/L Normal 98-107 [facility] Comment on above: Performed By: #### M G, CMP #### [facility] [address] [place] [address] Dr. Doreen Betancourt CO2 [Moles/Vol] 30.1 mmol/L Normal 21.0-32.0 [facility] Comment on above: Performed By: #### M G, CMP #### [facility] [address] [place] [address] Dr. Doreen Betancourt Creatinine [Mass/Vol] 0.68 mg/dL Normal 0.55-1.02 [facility] Comment on above: Performed By: #### Gay Martino, CMP #### [facility] [address] [place] [address] Dr. Doreen Betancourt EGFR-AF BERMUDIAN >60 Normal >=60 [facility] Comment on above: Performed By: #### Gay G, CMP #### [facility] [address] [place] [address] Dr. Doreen Betancourt EGFR-NON AF BERMUDIAN >60 Normal >=60 [facility] Comment on above: Performed By: #### Gay Martino, CMP #### [facility] [address] [place] [address] Dr. Doreen Betancourt Globulin (S) [Mass/Vol] 3.7 g/dL Normal [facility] Comment on above: Performed By: #### M G, CMP #### [facility] [address] [place] [address] Dr. Doreen Betancourt Glucose [Mass/Vol] 107 mg/dL Critically high 74-106 [facility] Comment on above: Performed By: #### M G, CMP #### [facility] [address] [place] [address] Dr. Doreen eBtancourt Potassium [Moles/Vol] 4.9 mmol/L Normal 3.5-5.1 [facility] Comment on above: Performed By: #### M G, CMP #### [facility] [address] [place] [address] Dr. Doreen Betancourt Protein [Mass/Vol] 7.4 g/dL Normal 6.4-8.2 [facility] Comment on above: Performed By: #### M G, CMP #### [facility] [address] [place] [address] Dr. Doreen Betancourt Sodium [Moles/Vol] 141 mmol/L Normal 136-145 [facility] Comment on above: Performed By: #### M G, CMP #### [facility] [address] [place] [address] Dr. Doreen Betancourt Urea nitrogen [Mass/Vol] 11.0 mg/dL Normal 7.0-18.0 [facility] Comment on above: Performed By: #### M G, CMP #### [facility] [address] [place] [address] Dr. Doreen Betancourt Urea nitrogen/Creatinine [Mass ratio] 16.2 mg/mg Normal [facility] Comment on above: Performed By: #### M G, CMP #### [facility] [address] [place] [address] Dr. Doreen Betancourt CBC AUTO DIFFon 11-02-2022 BASO # 0.0 103/ul Normal 0.0-0.1 [facility] Comment on above: Performed By: #### M G, CMP #### [facility] [address] [place] [address] Dr. Doreen Betancourt Basophils/100 WBC (Bld) 0.5 % Normal 0.2-2.0 [facility] Comment on above: Performed By: #### M G, CMP #### [facility] [address] [place] [address] Dr. Doreen Betancourt EO # 0.0 103/ul Normal 0.0-0.7 [facility] Comment on above: Performed By: #### M G, CMP #### [facility] [address] [place] [address] Dr. Doreen Betancourt Eosinophils/100 WBC (Bld) 0.8 % Critically low 0.9-7.0 [facility] Comment on above: Performed By: #### M G, CMP #### [facility] [address] [place] [address] Dr. Doreen Betancourt Erythrocyte distribution width (RBC) [Ratio] 13.2 % Normal 11.0-15.0 [facility] Comment on above: Performed By: #### M G, CMP #### [facility] [address] [place] [address] Dr. Doreen Betancourt Hematocrit (Bld) [Volume fraction] 40.7 % Normal 36.0-48.0 [facility] Comment on above: Performed By: #### M G, CMP #### [facility] [address] [place] [address] Dr. Doreen Betancourt Hemoglobin (Bld) [Mass/Vol] 13.5 g/dL Normal 12.0-16.0 [facility] Comment on above: Performed By: #### M G, CMP #### [facility] [address] [place] [address] Dr. Doreen Betancourt IG # 0.00 10e3/ul Normal 0.00-0.03 [facility] Comment on above: Performed By: #### M G, CMP #### [facility] [address] [place] [address] Dr. Doreen Betancourt IG % 0.0 % Normal 0.0-0.5 [facility] Comment on above: Performed By: #### M G, CMP #### [facility] [address] [place] [address] Dr. Doreen Betancourt LYMPH # 1.9 103/ul Normal 1.2-3.8 [facility] Comment on above: Performed By: #### M G, CMP #### [facility] [address] [place] [address] Dr. Doreen Betancourt Lymphocytes/100 WBC (Bld) 51.8 % Normal 20.5-60.0 [facility] Comment on above: Performed By: #### M G, CMP #### [facility] [address] [place] [address] Dr. Doreen Betancourt MANUAL DIFF REQ NO Normal [facility] Comment on above: Performed By: #### M G, CMP #### [facility] [address] [place] [address] Dr. Doreen Betancourt MCH (RBC) [Entitic mass] 34.3 pg Critically high 26.7-34.0 [facility] Comment on above: Performed By: #### M G, CMP #### [facility] [address] [place] [address] Dr. Doreen Betancourt MCHC (RBC) [Mass/Vol] 33.2 g/dL Normal 29.9-35.2 [facility] Comment on above: Performed By: #### M G, CMP #### [facility] [address] [place] [address] Dr. Doreen Betancourt MCV (RBC) [Entitic vol] 103.3 fL Critically high 81.0-99.0 [facility] Comment on above: Performed By: #### M G, CMP #### [facility] [address] [place] [address] Dr. Doreen Betancourt MONO # 0.5 103/ul Normal 0.3-0.8 [facility] Comment on above: Performed By: #### M G, CMP #### [facility] [address] [place] [address] Dr. Doreen Betancourt Monocytes/100 WBC (Bld) 13.9 % Critically high 1.7-12.0 [facility] Comment on above: Performed By: #### M G, CMP #### [facility] [address] [place] [address] Dr. Doreen Betancourt NEUT # 1.2 103/ul Critically low 1.4-6.5 [facility] Comment on above: Performed By: #### M G, CMP #### [facility] [address] [place] [address] Dr. Doreen Betancourt Neutrophils/100 WBC (Bld) 33.0 % Critically low 43.0-75.0 [facility] Comment on above: Performed By: #### M G, CMP #### [facility] [address] [address] [address] Doreen Betancourt Platelet mean volume (Bld) [Entitic vol] 10.0 fL Normal 9.5-13.5 [facility] Comment on above: Performed By: #### M G, CMP #### [facility] [address] [place] [address] Dr. Doreen Betancourt PLT 129 103/ul Critically low 150-450 [facility] Comment on above: Performed By: #### M G, CMP #### [facility] [address] [address] [address] Doreen Betancourt RBC 3.94 106/ul Critically low 4.20-5.40 [facility] Comment on above: Performed By: #### M G, CMP #### [facility] [address] [place] [address] Dr. Doreen Betancourt WBC 3.7 103/ul Critically low 4.0-11.0 [facility] Comment on above: Performed By: #### M G, CMP #### [facility] [address] [place] [address] Dr. Doreen Betancourt MAGNESIUMon 11-02-2022 Magnesium [Mass/Vol] 2.0 mg/dL Normal 1.8-2.4 [facility] Comment on above: Performed By: #### M G, CMP #### [facility] [address] [place] [address] Dr. Doreen Betancourt PROF 14(COMP METB)on 023 Albumin [Mass/Vol] 3.7 g/dL Normal 3.4-5.0 [facility] Comment on above: Performed By: #### M G, CMP #### [facility] [address] [place] [address] Dr. Doreen Betancourt Albumin/Globulin [Mass ratio] 1.0 {ratio} Normal [facility] Comment on above: Performed By: #### M G, CMP #### [facility] [address] [place] [address] Dr. Doreen Betancourt ALP [Catalytic activity/Vol] 133 U/L Critically high 46-116 [facility] Comment on above: Performed By: #### M G, CMP #### [facility] [address] [address] [address] Doreen Betancourt ALT [Catalytic activity/Vol] 47 U/L Normal 14-59 [facility] Comment on above: Performed By: #### M G, CMP #### [facility] [address] [address] [address] Doreen Betancourt Anion gap [Moles/Vol] 10.8 mmol/L Normal [facility] Comment on above: Performed By: #### M G, CMP #### [facility] [address] [address] [address] Doreen Betancourt AST [Catalytic activity/Vol] 39 U/L Critically high 15-37 [facility] Comment on above: Performed By: #### M G, CMP #### [facility] [address] [address] [address] Doreen Betancourt Bilirubin [Mass/Vol] 0.5 mg/dL Normal 0.2-1.0 [facility] Comment on above: Performed By: #### M G, CMP #### [facility] [address] [address] [address] Doreen Betancourt Calcium [Mass/Vol] 9.4 mg/dL Normal 8.5-10.1 [facility] Comment on above: Performed By: #### M G, CMP #### [facility] [address] [address] [address] Doreen Betancourt Chloride [Moles/Vol] 107 mmol/L Normal 98-107 [facility] Comment on above: Performed By: #### M G, CMP #### [facility] [address] [address] [address] Doreen Betancourt CO2 [Moles/Vol] 27.7 mmol/L Normal 21.0-32.0 [facility] Comment on above: Performed By: #### M G, CMP #### [facility] [address] [address] [address] Doreen Betancourt Creatinine [Mass/Vol] 0.70 mg/dL Normal 0.55-1.02 [facility] Comment on above: Performed By: #### M G, CMP #### [facility] [address] [address] [address] Doreen Betancourt EGFR-AF BERMUDIAN >60 Normal >=60 [facility] Comment on above: Performed By: #### M G, CMP #### [facility] [address] [address] [address] Doreen Betancourt EGFR-NON AF BERMUDIAN >60 Normal >=60 [facility] Comment on above: Performed By: #### M G, CMP #### [facility] [address] [address] [address] Doreen Betancourt Globulin (S) [Mass/Vol] 3.7 g/dL Normal [facility] Comment on above: Performed By: #### M G, CMP #### [facility] [address] [place] [address] Dr. Doreen Betancourt Glucose [Mass/Vol] 99 mg/dL Normal 74-106 [facility] Comment on above: Performed By: #### M G, CMP #### [facility] [address] [address] [address] Doreen Betancourt Potassium [Moles/Vol] 4.5 mmol/L Normal 3.5-5.1 [facility] Comment on above: Performed By: #### M G, CMP #### [facility] [address] [address] [address] Doreen Betancourt Protein [Mass/Vol] 7.4 g/dL Normal 6.4-8.2 [facility] Comment on above: Performed By: #### M G, CMP #### [facility] [address] [address] [address] Doreen Betancourt Sodium [Moles/Vol] 141 mmol/L Normal 136-145 [facility] Comment on above: Performed By: #### M G, CMP #### [facility] [address] [address] [address] Doreen Betancourt Urea nitrogen [Mass/Vol] 13.0 mg/dL Normal 7.0-18.0 [facility] Comment on above: Performed By: #### M G, CMP #### [facility] [address] [address] [address] Doreen Betancourt Urea nitrogen/Creatinine [Mass ratio] 18.6 mg/mg Normal [facility] Comment on above: Performed By: #### M G, CMP #### [facility] [address] [address] [address] Doreen Betancourt CBC AUTO DIFFon 10-19-2022 BASO # 0.1 103/ul Normal 0.0-0.1 [facility] Comment on above: Performed By: #### C BC #### [facility] [address] [place] [address] Dr. Doreen Betancourt Basophils/100 WBC (Bld) 1.0 % Normal 0.2-2.0 [facility] Comment on above: Performed By: #### C BC #### [facility] [address] [place] [address] Dr. Doreen Betancourt EO # 0.0 103/ul Normal 0.0-0.7 [facility] Comment on above: Performed By: #### C BC #### [facility] [address] [place] [address] Dr. Doreen Betancourt Eosinophils/100 WBC (Bld) 0.8 % Critically low 0.9-7.0 [facility] Comment on above: Performed By: #### C BC #### [facility] [address] [place] [address] Dr. Doreen Betancourt Erythrocyte distribution width (RBC) [Ratio] 13.2 % Normal 11.0-15.0 [facility] Comment on above: Performed By: #### C BC #### [facility] [address] [place] [address] Dr. Doreen Betancourt Hematocrit (Bld) [Volume fraction] 40.3 % Normal 36.0-48.0 [facility] Comment on above: Performed By: #### C BC #### [facility] [address] [place] [address] Dr. Doreen Betancourt Hemoglobin (Bld) [Mass/Vol] 13.3 g/dL Normal 12.0-16.0 [facility] Comment on above: Performed By: #### C BC #### [facility] [address] [place] [address] Dr. Doreen Betancourt IG # 0.02 10e3/ul Normal 0.00-0.03 [facility] Comment on above: Performed By: #### C BC #### [facility] [address] [place] [address] Dr. Doreen Betancourt IG % 0.4 % Normal 0.0-0.5 [facility] Comment on above: Performed By: #### C BC #### [facility] [address] [place] [address] Dr. Doreen Betancourt LYMPH # 1.8 103/ul Normal 1.2-3.8 [facility] Comment on above: Performed By: #### C BC #### [facility] [address] [place] [address] Dr. Doreen Betancourt Lymphocytes/100 WBC (Bld) 36.8 % Normal 20.5-60.0 [facility] Comment on above: Performed By: #### C BC #### [facility] [address] [place] [address] Dr. Doreen Betancourt MANUAL DIFF REQ NO Normal [facility] Comment on above: Performed By: #### C BC #### [facility] [address] [place] [address] Dr. Doreen Betancourt MCH (RBC) [Entitic mass] 33.8 pg Normal 26.7-34.0 [facility] Comment on above: Performed By: #### C BC #### [facility] [address] [place] [address] Dr. Doreen Betancourt MCHC (RBC) [Mass/Vol] 33.0 g/dL Normal 29.9-35.2 [facility] Comment on above: Performed By: #### C BC #### [facility] [address] [place] [address] Dr. Doreen Betancourt MCV (RBC) [Entitic vol] 102.5 fL Critically high 81.0-99.0 [facility] Comment on above: Performed By: #### C BC #### [facility] [address] [place] [address] Dr. Doreen Betancourt MONO # 0.6 103/ul Normal 0.3-0.8 [facility] Comment on above: Performed By: #### C BC #### [facility] [address] [place] [address] Dr. Doreen Betancourt Monocytes/100 WBC (Bld) 12.3 % Critically high 1.7-12.0 [facility] Comment on above: Performed By: #### C BC #### [facility] [address] [place] [address] Dr. Doreen Betancourt NEUT # 2.4 103/ul Normal 1.4-6.5 [facility] Comment on above: Performed By: #### C BC #### [facility] [address] [place] [address] Dr. Doreen Betancourt Neutrophils/100 WBC (Bld) 48.7 % Normal 43.0-75.0 [facility] Comment on above: Performed By: #### C BC #### [facility] [address] [place] [address] Dr. Doreen Betancourt Platelet mean volume (Bld) [Entitic vol] 10.3 fL Normal 9.5-13.5 [facility] Comment on above: Performed By: #### C BC #### [facility] [address] [place] [address] Dr. Doreen Betancourt PLT 239 103/ul Normal 150-450 [facility] Comment on above: Performed By: #### C BC #### [facility] [address] [place] [address] Dr. Doreen Betancourt RBC 3.93 106/ul Critically low 4.20-5.40 [facility] Comment on above: Performed By: #### C BC #### [facility] [address] [place] [address] Dr. Doreen Betancourt WBC 4.9 103/ul Normal 4.0-11.0 [facility] Comment on above: Performed By: #### C BC #### [facility] [address] [address] [address] Doreen Betancourt MAGNESIUMon 10-19-2022 Magnesium [Mass/Vol] 1.9 mg/dL Normal 1.8-2.4 [facility] Comment on above: Performed By: #### M G, CMP #### [facility] [address] [place] [address] Dr. Doreen Betancourt PROF 14(COMP METB)on 023 Albumin [Mass/Vol] 3.5 g/dL Normal 3.4-5.0 [facility] Comment on above: Performed By: #### C MP, MG #### [facility] [address] [place] [address] Dr. Doreen Betancourt Albumin/Globulin [Mass ratio] 0.9 {ratio} Normal [facility] Comment on above: Performed By: #### C MP, MG #### [facility] [address] [place] [address] Dr. Doreen Betancourt ALP [Catalytic activity/Vol] 153 U/L Critically high 46-116 [facility] Comment on above: Performed By: #### C MP, MG #### [facility] [address] [place] [address] Dr. Doreen Betancourt ALT [Catalytic activity/Vol] 36 U/L Normal 14-59 [facility] Comment on above: Performed By: #### C MP, MG #### [facility] [address] [place] [address] Dr. Doreen Betancourt Anion gap [Moles/Vol] 11.7 mmol/L Normal [facility] Comment on above: Performed By: #### C MP, MG #### [facility] [address] [place] [address] Dr. Doreen Betancourt AST [Catalytic activity/Vol] 30 U/L Normal 15-37 [facility] Comment on above: Performed By: #### C MP, MG #### [facility] [address] [place] [address] Dr. Doreen Betancourt Bilirubin [Mass/Vol] 0.5 mg/dL Normal 0.2-1.0 [facility] Comment on above: Performed By: #### C MP, MG #### [facility] [address] [place] [address] Dr. Doreen Betancourt Calcium [Mass/Vol] 9.2 mg/dL Normal 8.5-10.1 [facility] Comment on above: Performed By: #### C MP, MG #### [facility] [address] [place] [address] Dr. Doreen Betancourt Chloride [Moles/Vol] 105 mmol/L Normal 98-107 [facility] Comment on above: Performed By: #### C MP, MG #### [facility] [address] [place] [address] Dr. Doreen Betancourt CO2 [Moles/Vol] 27.3 mmol/L Normal 21.0-32.0 [facility] Comment on above: Performed By: #### C MP, MG #### [facility] [address] [place] [address] Dr. Doreen Betancourt Creatinine [Mass/Vol] 0.75 mg/dL Normal 0.55-1.02 [facility] Comment on above: Performed By: #### C MP, MG #### [facility] [address] [place] [address] Dr. Doreen Betancourt EGFR-AF BERMUDIAN >60 Normal >=60 [facility] Comment on above: Performed By: #### C MP, MG #### [facility] [address] [place] [address] Dr. Doreen Betancourt EGFR-NON AF BERMUDIAN >60 Normal >=60 [facility] Comment on above: Performed By: #### C MP, MG #### [facility] [address] [place] [address] Dr. Doreen Betancourt Globulin (S) [Mass/Vol] 4.0 g/dL Normal [facility] Comment on above: Performed By: #### C MP, MG #### [facility] [address] [place] [address] Dr. Doreen Betancourt Glucose [Mass/Vol] 89 mg/dL Normal 74-106 [facility] Comment on above: Performed By: #### C MP, MG #### [facility] [address] [address] [address] Doreen Betancourt Potassium [Moles/Vol] 4.0 mmol/L Normal 3.5-5.1 [facility] Comment on above: Performed By: #### C MP, MG #### [facility] [address] [address] [address] Doreen Betancourt Protein [Mass/Vol] 7.5 g/dL Normal 6.4-8.2 [facility] Comment on above: Performed By: #### C MP, MG #### [facility] [address] [address] [address] Doreen Betancourt Sodium [Moles/Vol] 140 mmol/L Normal 136-145 [facility] Comment on above: Performed By: #### C MP, MG #### [facility] [address] [place] [address] Dr. Doreen Betancourt Urea nitrogen [Mass/Vol] 18.0 mg/dL Normal 7.0-18.0 [facility] Comment on above: Performed By: #### C MP, MG #### [facility] [address] [place] [address] Dr. Doreen Betancourt Urea nitrogen/Creatinine [Mass ratio] 24.0 mg/mg Normal [facility] Comment on above: Performed By: #### C MP, MG #### [facility] [address] [place] [address] Dr. Doreen Betancourt Magnesium [Mass/volume] in S daljit or PlasmaOrdered By: Isaías Jordan on 09-23-2022 Magnesium [Mass/Vol] 2.2 mg/dL 1.9-2.7 [facility] Magnesium [Mass/Vol] Magnesium [Mass/vol ume] in Serum or Plasma 1.9-2.7 [facility] CBC AUTO DIFFon 09-14-2022 BASO # 0.0 103/ul Normal 0.0-0.1 [facility] Comment on above: Performed By: #### C BC #### [facility] [address] [place] [address] Dr. Doreen Betancourt Basophils/100 WBC (Bld) 0.3 % Normal 0.2-2.0 [facility] Comment on above: Performed By: #### C BC #### [facility] [address] [place] [address] Dr. Doreen Betancourt EO # 0.0 103/ul Normal 0.0-0.7 [facility] Comment on above: Performed By: #### C BC #### [facility] [address] [place] [address] Dr. Doreen Betancourt Eosinophils/100 WBC (Bld) 0.9 % Normal 0.9-7.0 [facility] Comment on above: Performed By: #### C BC #### [facility] [address] [place] [address] Dr. Doreen Betancourt Erythrocyte distribution width (RBC) [Ratio] 16.3 % Critically high 11.0-15.0 [facility] Comment on above: Performed By: #### C BC #### [facility] [address] [place] [address] Dr. Doreen Betancourt Hematocrit (Bld) [Volume fraction] 37.3 % Normal 36.0-48.0 [facility] Comment on above: Performed By: #### C BC #### [facility] [address] [place] [address] Dr. Doreen Betancourt Hemoglobin (Bld) [Mass/Vol] 12.4 g/dL Normal 12.0-16.0 [facility] Comment on above: Performed By: #### C BC #### [facility] [address] [place] [address] Dr. Doreen Betancourt IG # 0.01 10e3/ul Normal 0.00-0.03 [facility] Comment on above: Performed By: #### C BC #### [facility] [address] [place] [address] Dr. Doreen Betancourt IG % 0.3 % Normal 0.0-0.5 [facility] Comment on above: Performed By: #### C BC #### [facility] [address] [place] [address] Dr. Doreen Betancourt LYMPH # 1.1 103/ul Critically low 1.2-3.8 [facility] Comment on above: Performed By: #### C BC #### [facility] [address] [place] [address] Dr. Doreen Betancourt Lymphocytes/100 WBC (Bld) 30.7 % Normal 20.5-60.0 [facility] Comment on above: Performed By: #### C BC #### [facility] [address] [place] [address] Dr. Doreen Betancourt MANUAL DIFF REQ NO Normal [facility] Comment on above: Performed By: #### C BC #### [facility] [address] [place] [address] Dr. Doreen Betancourt MCH (RBC) [Entitic mass] 34.3 pg Critically high 26.7-34.0 [facility] Comment on above: Performed By: #### C BC #### [facility] [address] [place] [address] Dr. Doreen Betancourt MCHC (RBC) [Mass/Vol] 33.2 g/dL Normal 29.9-35.2 [facility] Comment on above: Performed By: #### C BC #### [facility] [address] [place] [address] Dr. Doreen Betancourt MCV (RBC) [Entitic vol] 103.3 fL Critically high 81.0-99.0 [facility] Comment on above: Performed By: #### C BC #### [facility] [address] [place] [address] Dr. Doreen Betancourt MONO # 0.4 103/ul Normal 0.3-0.8 [facility] Comment on above: Performed By: #### C BC #### [facility] [address] [place] [address] Dr. Doreen Betancourt Monocytes/100 WBC (Bld) 11.4 % Normal 1.7-12.0 [facility] Comment on above: Performed By: #### C BC #### [facility] [address] [place] [address] Dr. Doreen Betancourt NEUT # 2.0 103/ul Normal 1.4-6.5 [facility] Comment on above: Performed By: #### C BC #### [facility] [address] [address] [address] Doreen Betancourt Neutrophils/100 WBC (Bld) 56.4 % Normal 43.0-75.0 [facility] Comment on above: Performed By: #### C BC #### [facility] [address] [place] [address] Dr. Doreen Betancourt Platelet mean volume (Bld) [Entitic vol] 10.0 fL Normal 9.5-13.5 [facility] Comment on above: Performed By: #### C BC #### [facility] [address] [place] [address] Dr. Doreen Betancourt PLT 128 103/ul Critically low 150-450 [facility] Comment on above: Performed By: #### C BC #### [facility] [address] [place] [address] Dr. Doreen Betancourt RBC 3.61 106/ul Critically low 4.20-5.40 [facility] Comment on above: Performed By: #### C BC #### [facility] [address] [place] [address] Dr. Doreen Betancourt WBC 3.5 103/ul Critically low 4.0-11.0 [facility] Comment on above: Performed By: #### C BC #### [facility] [address] [place] [address] Dr. Doreen Betancourt MAGNESIUMon 09-14-2022 Magnesium [Mass/Vol] 1.9 mg/dL Normal 1.8-2.4 [facility] Comment on above: Performed By: #### C VDTBH #### [facility] [address] [place] [address] Dr. Doreen Betancourt PROF 14(COMP METB)on 023 Albumin [Mass/Vol] 3.7 g/dL Normal 3.4-5.0 [facility] Comment on above: Performed By: #### C VDTBH #### [facility] [address] [place] [address] Dr. Doreen Betancourt Albumin/Globulin [Mass ratio] 1.1 {ratio} Normal [facility] Comment on above: Performed By: #### C VDTBH #### [facility] [address] [address] [address] Doreen Betancourt ALP [Catalytic activity/Vol] 138 U/L Critically high 46-116 [facility] Comment on above: Performed By: #### C VDTBH #### [facility] [address] [address] [address] Doreen Betancourt ALT [Catalytic activity/Vol] 42 U/L Normal 14-59 [facility] Comment on above: Performed By: #### C VDTBH #### [facility] [address] [address] [address] Doreen Betancourt Anion gap [Moles/Vol] 11.0 mmol/L Normal [facility] Comment on above: Performed By: #### C VDTBH #### [facility] [address] [place] [address] Dr. Doreen Betancourt AST [Catalytic activity/Vol] 36 U/L Normal 15-37 [facility] Comment on above: Performed By: #### C VDTBH #### [facility] [address] [address] [address] Doreen Betancourt Bilirubin [Mass/Vol] 0.5 mg/dL Normal 0.2-1.0 [facility] Comment on above: Performed By: #### C VDTBH #### [facility] [address] [address] [address] Doreen Betancourt Calcium [Mass/Vol] 9.6 mg/dL Normal 8.5-10.1 [facility] Comment on above: Performed By: #### C VDTBH #### [facility] [address] [address] [address] Doreen Betancourt Chloride [Moles/Vol] 104 mmol/L Normal 98-107 [facility] Comment on above: Performed By: #### C VDTBH #### [facility] [address] [address] [address] Doreen Betancourt CO2 [Moles/Vol] 29.8 mmol/L Normal 21.0-32.0 [facility] Comment on above: Performed By: #### C VDTBH #### [facility] [address] [address] [address] Doreen Betancourt Creatinine [Mass/Vol] 0.62 mg/dL Normal 0.55-1.02 [facility] Comment on above: Performed By: #### C VDTBH #### [facility] [address] [address] [address] Doreen Betancourt EGFR-AF BERMUDIAN >60 Normal >=60 [facility] Comment on above: Performed By: #### C VDTBH #### [facility] [address] [address] [address] Doreen Betancourt EGFR-NON AF BERMUDIAN >60 Normal >=60 [facility] Comment on above: Performed By: #### C VDTBH #### [facility] [address] [place] [address] Dr. Doreen Betancourt Globulin (S) [Mass/Vol] 3.4 g/dL Normal [facility] Comment on above: Performed By: #### C VDTBH #### [facility] [address] [address] [address] Doreen Betancourt Glucose [Mass/Vol] 115 mg/dL Critically high 74-106 [facility] Comment on above: Performed By: #### C VDTBH #### [facility] [address] [place] [address] Dr. Doreen Betancourt Potassium [Moles/Vol] 4.8 mmol/L Normal 3.5-5.1 [facility] Comment on above: Performed By: #### C VDTBH #### [facility] [address] [place] [address] Dr. Doreen Betancourt Protein [Mass/Vol] 7.1 g/dL Normal 6.4-8.2 [facility] Comment on above: Performed By: #### C VDTBH #### [facility] [address] [place] [address] Dr. Doreen Betancourt Sodium [Moles/Vol] 140 mmol/L Normal 136-145 [facility] Comment on above: Performed By: #### C VDTBH #### [facility] [address] [place] [address] Dr. Doreen Betancourt Urea nitrogen [Mass/Vol] 14.0 mg/dL Normal 7.0-18.0 [facility] Comment on above: Performed By: #### C VDTBH #### [facility] [address] [place] [address] Dr. Doreen Betancourt Urea nitrogen/Creatinine [Mass ratio] 22.6 mg/mg Normal [facility] Comment on above: Performed By: #### C VDTBH #### [facility] [address] [place] [address] Dr. Doreen Betnacourt HEP B SURFACE ANTIGEN SCREEN on 09-03-2022 HBsAg Screen Negative Normal Negative [facility] Comment on above: Performed By: #### C VDTBH #### [facility] [address] [place] [address] Dr. Doreen Betancourt HEPATITIS B SURFACE ANTIBODY , QUANTon 09-03-2022 Hepatitis B Surf AB Quant 46.7 mIU/mL Normal Immunity>9. 9 [facility] Comment on above: Result Comment: Stat us of Immunity Anti-HBs Level Inconsistent with Immunity 0.0 - 9.9 Consistent with Immunity >9.9 Performed By: #### M G, [facility] #### [facility] [address] [place] [address] Dr. Doreen Betancourt HEPATITIS C ANTIBODYon 09-03 Hep C Virus Ab Non-Reactive Normal Non Reactive [facility] Comment on above: Result Comment: HCV antibody alone does not differentiate between previously resolved infection and active infection. Equivocal and Reactive HCV antibody results should be followed up with an HCV RNA test to support the diagnosis of active HCV infection. Performed By: #### C VDTBH #### [facility] [address] [place] [address] Dr. Doreen Betancourt RPR QUANTon 09-03-2022 Rapid Plasma Reagin, Quant Non-Reactive Normal NonRea<1:1 [facility] Comment on above: Result Comment: Plea se Note: This test does not meet current guidelines for screening and diagnosis of syphilis. This test is intended for following treatment response in patients being treated for syphilis infection. To screen for syphilis infection, a reflex cascade that includes both RPR and a treponema-specific assay should be utilized, such as Treponema pallidum (Syphilis) Screening [place] (534720) or Rapid Plasma Reagin (RPR) Test With Reflex to Quantitative RPR and Confirmatory Treponema pallidum Antibodies (870240). Performed By: #### M G, CMP #### [facility] [address] [place] [address] Dr. Doreen Betancourt HIV 1/2 RAPID (EXPOSURE ONLY )on 09-01-2022 HIV AB Non-Reactive Normal NON-REACTIV E [facility] Comment on above: Performed By: #### M G, CMP #### [facility] [address] [place] [address] Dr. Doreen Betancourt HIV AG Non-Reactive Normal NON-REACTIV E [facility] Comment on above: Performed By: #### M G, CMP #### [facility] [address] [place] [address] Dr. Doreen Betancourt INTERNAL CONTROLS Within Normal Limits Normal Wi thin Normal Limits [facility] Comment on above: Performed By: #### M G, CMP #### [facility] [address] [place] [address] Dr. Doreen Betancourt RAPID HIV INFO SEE BELOW Normal [facility] Comment on above: Result Comment: This test is used for the initial screening of the exposure source. Confirmation of all reactive results will be obtained through reference lab testing. Performed By: #### M G, CMP #### [facility] [address] [place] [address] Dr. Doreen Betancourt CBC AUTO DIFFon 08-31-2022 BASO # 0.0 103/ul Normal 0.0-0.1 [facility] Comment on above: Performed By: #### M G, CMP #### [facility] [address] [place] [address] Dr. Doreen Betancourt Basophils/100 WBC (Bld) 0.7 % Normal 0.2-2.0 [facility] Comment on above: Performed By: #### M G, CMP #### [facility] [address] [place] [address] Dr. Doreen Betancourt EO # 0.0 103/ul Normal 0.0-0.7 [facility] Comment on above: Performed By: #### M G, CMP #### [facility] [address] [place] [address] Dr. Doreen Betancourt Eosinophils/100 WBC (Bld) 0.7 % Critically low 0.9-7.0 [facility] Comment on above: Performed By: #### M G, CMP #### [facility] [address] [place] [address] Dr. Doreen Betancourt Erythrocyte distribution width (RBC) [Ratio] 18.2 % Critically high 11.0-15.0 [facility] Comment on above: Performed By: #### M G, CMP #### [facility] [address] [place] [address] Dr. Doreen Betancourt Hematocrit (Bld) [Volume fraction] 37.8 % Normal 36.0-48.0 [facility] Comment on above: Performed By: #### M G, CMP #### [facility] [address] [place] [address] Dr. Doreen Betancourt Hemoglobin (Bld) [Mass/Vol] 12.3 g/dL Normal 12.0-16.0 [facility] Comment on above: Performed By: #### M G, CMP #### [facility] [address] [place] [address] Dr. Doreen Betancourt IG # 0.01 10e3/ul Normal 0.00-0.03 [facility] Comment on above: Performed By: #### M G, CMP #### [facility] [address] [place] [address] Dr. Doreen Betancourt IG % 0.3 % Normal 0.0-0.5 [facility] Comment on above: Performed By: #### M G, CMP #### [facility] [address] [place] [address] Dr. Doreen Betancourt LYMPH # 1.5 103/ul Normal 1.2-3.8 [facility] Comment on above: Performed By: #### M G, CMP #### [facility] [address] [place] [address] Dr. Doreen Betancourt Lymphocytes/100 WBC (Bld) 49.5 % Normal 20.5-60.0 [facility] Comment on above: Performed By: #### M G, CMP #### [facility] [address] [place] [address] Dr. Doreen Betancourt MANUAL DIFF REQ NO Normal [facility] Comment on above: Performed By: #### M G, CMP #### [facility] [address] [place] [address] Dr. Doreen Betancourt MCH (RBC) [Entitic mass] 33.3 pg Normal 26.7-34.0 [facility] Comment on above: Performed By: #### M G, CMP #### [facility] [address] [place] [address] Dr. Doreen Betancourt MCHC (RBC) [Mass/Vol] 32.5 g/dL Normal 29.9-35.2 [facility] Comment on above: Performed By: #### M G, CMP #### [facility] [address] [place] [address] Dr. Doreen Betancourt MCV (RBC) [Entitic vol] 102.4 fL Critically high 81.0-99.0 [facility] Comment on above: Performed By: #### M G, CMP #### [facility] [address] [place] [address] Dr. Doreen Betancourt MONO # 0.5 103/ul Normal 0.3-0.8 [facility] Comment on above: Performed By: #### M G, CMP #### [facility] [address] [place] [address] Dr. Doreen Betancourt Monocytes/100 WBC (Bld) 14.7 % Critically high 1.7-12.0 [facility] Comment on above: Performed By: #### M G, CMP #### [facility] [address] [place] [address] Dr. Doreen Betancourt NEUT # 1.1 103/ul Critically low 1.4-6.5 [facility] Comment on above: Performed By: #### M G, CMP #### [facility] [address] [place] [address] Dr. Doreen Betancourt Neutrophils/100 WBC (Bld) 34.1 % Critically low 43.0-75.0 [facility] Comment on above: Performed By: #### Gay Martino, CMP #### [facility] [address] [place] [address] Dr. Doreen Betancourt Platelet mean volume (Bld) [Entitic vol] 11.1 fL Normal 9.5-13.5 [facility] Comment on above: Performed By: #### Gay Martino, CMP #### [facility] [address] [place] [address] Dr. Doreen Betancourt PLT 117 103/ul Critically low 150-450 [facility] Comment on above: Performed By: #### Gay Martino, CMP #### [facility] [address] [place] [address] Dr. Doreen Betancourt RBC 3.69 106/ul Critically low 4.20-5.40 [facility] Comment on above: Performed By: #### Gay Martino, CMP #### [facility] [address] [place] [address] Dr. Doreen Betancourt WBC 3.1 103/ul Critically low 4.0-11.0 [facility] Comment on above: Performed By: #### Gay Martino, CMP #### [facility] [address] [place] [address] Dr. Doreen Betancourt MAGNESIUMon 08-31-2022 Magnesium [Mass/Vol] 2.0 mg/dL Normal 1.8-2.4 [facility] Comment on above: Performed By: #### Gay Martino, CMP #### [facility] [address] [place] [address] Dr. Doreen Betancourt PROF 14(COMP METB)on 023 Albumin [Mass/Vol] 3.4 g/dL Normal 3.4-5.0 [facility] Comment on above: Performed By: #### Gay Martino, CMP #### [facility] [address] [address] [address] Doreen Betancourt Albumin/Globulin [Mass ratio] 1.0 {ratio} Normal [facility] Comment on above: Performed By: #### M G, CMP #### [facility] [address] [address] [address] Doreen Betancourt ALP [Catalytic activity/Vol] 121 U/L Critically high 46-116 [facility] Comment on above: Performed By: #### M G, CMP #### [facility] [address] [address] [address] Doreen Betancourt ALT [Catalytic activity/Vol] 52 U/L Normal 14-59 [facility] Comment on above: Performed By: #### M G, CMP #### [facility] [address] [place] [address] Dr. Doreen Betancourt Anion gap [Moles/Vol] 11.5 mmol/L Normal [facility] Comment on above: Performed By: #### M G, CMP #### [facility] [address] [place] [address] Dr. Doreen Betancourt AST [Catalytic activity/Vol] 34 U/L Normal 15-37 [facility] Comment on above: Performed By: #### M G, CMP #### [facility] [address] [place] [address] Dr. Doreen Betancourt Bilirubin [Mass/Vol] 0.4 mg/dL Normal 0.2-1.0 [facility] Comment on above: Performed By: #### M G, CMP #### [facility] [address] [place] [address] Dr. Doreen Betancourt Calcium [Mass/Vol] 9.5 mg/dL Normal 8.5-10.1 [facility] Comment on above: Performed By: #### M G, CMP #### [facility] [address] [place] [address] Dr. Doreen Betancourt Chloride [Moles/Vol] 106 mmol/L Normal 98-107 [facility] Comment on above: Performed By: #### M G, CMP #### [facility] [address] [address] [address] Doreen Betancourt CO2 [Moles/Vol] 28.6 mmol/L Normal 21.0-32.0 [facility] Comment on above: Performed By: #### M G, CMP #### [facility] [address] [place] [address] Dr. Doreen Betancourt Creatinine [Mass/Vol] 0.60 mg/dL Normal 0.55-1.02 [facility] Comment on above: Performed By: #### M G, CMP #### [facility] [address] [place] [address] Dr. Doreen Betancourt EGFR-AF BERMUDIAN >60 Normal >=60 [facility] Comment on above: Performed By: #### M G, CMP #### [facility] [address] [place] [address] Dr. Doreen Betancourt EGFR-NON AF BERMUDIAN >60 Normal >=60 [facility] Comment on above: Performed By: #### M G, CMP #### [facility] [address] [place] [address] Dr. Doreen Betancourt Globulin (S) [Mass/Vol] 3.5 g/dL Normal [facility] Comment on above: Performed By: #### M G, CMP #### [facility] [address] [place] [address] Dr. Doreen Betancourt Glucose [Mass/Vol] 95 mg/dL Normal 74-106 [facility] Comment on above: Performed By: #### M G, CMP #### [facility] [address] [place] [address] Dr. Doreen Betancourt Potassium [Moles/Vol] 4.1 mmol/L Normal 3.5-5.1 [facility] Comment on above: Performed By: #### M G, CMP #### [facility] [address] [place] [address] Dr. Doreen Betancourt Protein [Mass/Vol] 6.9 g/dL Normal 6.4-8.2 [facility] Comment on above: Performed By: #### M G, CMP #### [facility] [address] [place] [address] Dr. Doreen Betancourt Sodium [Moles/Vol] 142 mmol/L Normal 136-145 [facility] Comment on above: Performed By: #### M G, CMP #### [facility] [address] [place] [address] Dr. Doreen Betancourt Urea nitrogen [Mass/Vol] 13.0 mg/dL Normal 7.0-18.0 [facility] Comment on above: Performed By: #### M G, CMP #### [facility] [address] [place] [address] Dr. Doreen Betancourt Urea nitrogen/Creatinine [Mass ratio] 21.7 mg/mg Normal [facility] Comment on above: Performed By: #### M G, CMP #### [facility] [address] [place] [address] Dr. Doreen Betancourt CBC W MANUAL DIFFon 08-16-19 23 ANISOCYTOSIS SLIGHT Normal [facility] Comment on above: Performed By: #### M G, CMP #### [facility] [address] [place] [address] Dr. Doreen Betancourt ATYPICAL LYMPH # Normal [facility] Comment on above: Performed By: #### M G, CMP #### [facility] [address] [place] [address] Dr. Doreen Betancourt ATYPICAL LYMPH % Normal [facility] Comment on above: Performed By: #### M G, CMP #### [facility] [address] [place] [address] Dr. Doreen Betancourt BAND # Normal 0.0-0.3 [facility] Comment on above: Performed By: #### M G, CMP #### [facility] [address] [place] [address] Dr. Doreen Betancourt BAND % Normal 0-5 [facility] Comment on above: Performed By: #### M G, CMP #### [facility] [address] [place] [address] Dr. Doreen Betancourt BASOM # 0.00 103/ul Normal 0.00-0.10 [facility] Comment on above: Performed By: #### M G, CMP #### [facility] [address] [place] [address] Dr. Doreen Betancourt BASOM % 0.0 % Critically low 0.2-2.0 [facility] Comment on above: Performed By: #### M G, CMP #### [facility] [address] [place] [address] Dr. Doreen Betancourt BLAST # Normal [facility] Comment on above: Performed By: #### M G, CMP #### [facility] [address] [place] [address] Dr. Doreen Betancourt BLAST % Normal [facility] Comment on above: Performed By: #### M G, CMP #### [facility] [address] [place] [address] Dr. Doreen Betancourt CORRECTED WBC Normal 4.0-11.0 [facility] Comment on above: Performed By: #### M G, CMP #### [facility] [address] [place] [address] Dr. Doreen Betancourt EOS # 0.00 103/ul Normal 0.00-0.70 [facility] Comment on above: Performed By: #### M G, CMP #### [facility] [address] [place] [address] Dr. Doreen Betancourt EOS% 0.0 % Critically low 0.9-7.0 [facility] Comment on above: Performed By: #### M G, CMP #### [facility] [address] [place] [address] Dr. Doreen Betancourt HCT 36.2 % Normal 36.0-48.0 [facility] Comment on above: Performed By: #### M G, CMP #### [facility] [address] [place] [address] Dr. Doreen Betancourt HGB 12.1 g/dl Normal 12.0-16.0 [facility] Comment on above: Performed By: #### M G, CMP #### [facility] [address] [place] [address] Dr. Doreen Betancourt LYMPHM # 2.08 103/ul Normal 1.20-3.80 [facility] Comment on above: Performed By: #### M G, CMP #### [facility] [address] [place] [address] Dr. Doreen Betancourt LYMPHM% 63.0 % Critically high 20.5-60.0 [facility] Comment on above: Performed By: #### M G, CMP #### [facility] [address] [place] [address] Dr. Doreen Betancourt MCH 33.0 pg Normal 26.7-34.0 [facility] Comment on above: Performed By: #### M G, CMP #### [facility] [address] [place] [address] Dr. Doreen Betancourt MCHC 33.4 g/dl Normal 29.9-35.2 [facility] Comment on above: Performed By: #### M G, CMP #### [facility] [address] [place] [address] Dr. Doreen Betancourt MCV 98.6 fL Normal 81.0-99.0 [facility] Comment on above: Performed By: #### M G, CMP #### [facility] [address] [place] [address] Dr. Doreen Betancourt METAMYELOCYTE # Normal [facility] Comment on above: Performed By: #### M G, CMP #### [facility] [address] [place] [address] Dr. Doreen Betancourt METAMYELOCYTE % Normal [facility] Comment on above: Performed By: #### M G, CMP #### [facility] [address] [place] [address] Dr. Doreen Betancourt MONOM# 0.33 103/ul Normal 0.30-0.80 [facility] Comment on above: Performed By: #### M G, CMP #### [facility] [address] [place] [address] Dr. Doreen Betancourt MONOM% 10.0 % Normal 1.7-12.0 [facility] Comment on above: Performed By: #### M G, CMP #### [facility] [address] [place] [address] Dr. Doreen Betancourt MPV 10.4 fL Normal 9.5-13.5 [facility] Comment on above: Performed By: #### M G, CMP #### [facility] [address] [place] [address] Dr. Doreen Betancourt MYELOCYTE # Normal [facility] Comment on above: Performed By: #### M G, CMP #### [facility] [address] [place] [address] Dr. Doreen Betancourt MYELOCYTE % Normal [facility] Comment on above: Performed By: #### M G, CMP #### [facility] [address] [place] [address] Dr. Doreen Betancourt NRBC Normal [facility] Comment on above: Performed By: #### M G, CMP #### [facility] [address] [place] [address] Dr. Doreen Betancourt PLT 92 103/ul Critically low 150-450 [facility] Comment on above: Performed By: #### M G, CMP #### [facility] [address] [place] [address] Dr. Doreen Betancourt RBC 3.67 106/ul Critically low 4.20-5.40 [facility] Comment on above: Performed By: #### M G, CMP #### [facility] [address] [place] [address] Dr. Doreen Betancourt RDW 17.8 % Critically high 11.0-15.0 [facility] Comment on above: Performed By: #### M G, CMP #### [facility] [address] [place] [address] Dr. Doreen Betancourt SEG # 0.89 103/ul Critically low 1.40-6.50 [facility] Comment on above: Performed By: #### M G, CMP #### [facility] [address] [place] [address] Dr. Doreen Betancourt SEG % 27.0 % Critically low 43.0-75.0 [facility] Comment on above: Performed By: #### M G, CMP #### [facility] [address] [place] [address] Dr. Doreen Betancourt WBC 3.3 103/ul Critically low 4.0-11.0 [facility] Comment on above: Performed By: #### M G, CMP #### [facility] [address] [place] [address] Dr. Doreen Betancourt MAGNESIUMon 08-16-2022 Magnesium [Mass/Vol] 2.1 mg/dL Normal 1.8-2.4 [facility] Comment on above: Performed By: #### C BC #### [facility] [address] [place] [address] Dr. Doreen Betancourt PROF 14(COMP METB)on 023 Albumin [Mass/Vol] 3.5 g/dL Normal 3.4-5.0 [facility] Comment on above: Performed By: #### C BC #### [facility] [address] [place] [address] Dr. Doreen Betancourt Albumin/Globulin [Mass ratio] 1.0 {ratio} Normal [facility] Comment on above: Performed By: #### C BC #### [facility] [address] [place] [address] Dr. Doreen Betancourt ALP [Catalytic activity/Vol] 131 U/L Critically high 46-116 [facility] Comment on above: Performed By: #### C BC #### [facility] [address] [place] [address] Dr. Doreen Betancourt ALT [Catalytic activity/Vol] 98 U/L Critically high 14-59 [facility] Comment on above: Performed By: #### C BC #### [facility] [address] [place] [address] Dr. Doreen Betancourt Anion gap [Moles/Vol] 12.3 mmol/L Normal [facility] Comment on above: Performed By: #### C BC #### [facility] [address] [place] [address] Dr. Doreen Betancourt AST [Catalytic activity/Vol] 78 U/L Critically high 15-37 [facility] Comment on above: Performed By: #### C BC #### [facility] [address] [place] [address] Dr. Doreen Betancourt Bilirubin [Mass/Vol] 0.3 mg/dL Normal 0.2-1.0 [facility] Comment on above: Performed By: #### C BC #### [facility] [address] [place] [address] Dr. Doreen Betancourt Calcium [Mass/Vol] 9.3 mg/dL Normal 8.5-10.1 [facility] Comment on above: Performed By: #### C BC #### [facility] [address] [address] [address] Doreen Betancourt Chloride [Moles/Vol] 104 mmol/L Normal 98-107 [facility] Comment on above: Performed By: #### C BC #### [facility] [address] [place] [address] Dr. Doreen Betancourt CO2 [Moles/Vol] 29.4 mmol/L Normal 21.0-32.0 [facility] Comment on above: Performed By: #### C BC #### [facility] [address] [place] [address] Dr. Doreen Betancourt Creatinine [Mass/Vol] 0.67 mg/dL Normal 0.55-1.02 [facility] Comment on above: Performed By: #### C BC #### [facility] [address] [place] [address] Dr. Doreen Betancourt EGFR-AF BERMUDIAN >60 Normal >=60 [facility] Comment on above: Performed By: #### C BC #### [facility] [address] [place] [address] Dr. Doreen Betancourt EGFR-NON AF BERMUDIAN >60 Normal >=60 [facility] Comment on above: Performed By: #### C BC #### [facility] [address] [place] [address] Dr. Doreen Betancourt Globulin (S) [Mass/Vol] 3.5 g/dL Normal [facility] Comment on above: Performed By: #### C BC #### [facility] [address] [place] [address] Dr. Doreen Betancourt Glucose [Mass/Vol] 100 mg/dL Normal 74-106 [facility] Comment on above: Performed By: #### C BC #### [facility] [address] [address] [address] Doreen Betancourt Potassium [Moles/Vol] 4.7 mmol/L Normal 3.5-5.1 [facility] Comment on above: Performed By: #### C BC #### [facility] [address] [address] [address] Doreen Betancourt Protein [Mass/Vol] 7.0 g/dL Normal 6.4-8.2 [facility] Comment on above: Performed By: #### C BC #### [facility] [address] [address] [address] Doreen Betancourt Sodium [Moles/Vol] 141 mmol/L Normal 136-145 [facility] Comment on above: Performed By: #### C BC #### [facility] [address] [address] [address] Doreen Betancourt Urea nitrogen [Mass/Vol] 13.0 mg/dL Normal 7.0-18.0 [facility] Comment on above: Performed By: #### C BC #### [facility] [address] [address] [address] Doreen Betancourt Urea nitrogen/Creatinine [Mass ratio] 19.4 mg/mg Normal [facility] Comment on above: Performed By: #### C BC #### [facility] [address] [address] [address] Doreen Betancourt CBC AUTO DIFFon 08-03-2022 BASO # 0.0 103/ul Normal 0.0-0.1 [facility] Comment on above: Performed By: #### M G, CMP #### [facility] [address] [address] [address] Doreen Betancourt Basophils/100 WBC (Bld) 0.6 % Normal 0.2-2.0 [facility] Comment on above: Performed By: #### M G, CMP #### [facility] [address] [address] [address] Doreen Betancourt EO # 0.0 103/ul Normal 0.0-0.7 [facility] Comment on above: Performed By: #### M G, CMP #### [facility] [address] [place] [address] Dr. Doreen Betancourt Eosinophils/100 WBC (Bld) 0.6 % Critically low 0.9-7.0 [facility] Comment on above: Performed By: #### M G, CMP #### [facility] [address] [place] [address] Dr. Doreen Betancourt Erythrocyte distribution width (RBC) [Ratio] 17.8 % Critically high 11.0-15.0 [facility] Comment on above: Performed By: #### M G, CMP #### [facility] [address] [place] [address] Dr. Doreen Betancourt Hematocrit (Bld) [Volume fraction] 36.1 % Normal 36.0-48.0 [facility] Comment on above: Performed By: #### M G, CMP #### [facility] [address] [place] [address] Dr. Doreen Betancourt Hemoglobin (Bld) [Mass/Vol] 12.6 g/dL Normal 12.0-16.0 [facility] Comment on above: Performed By: #### M G, CMP #### [facility] [address] [place] [address] Dr. Doreen Betancourt IG # 0.01 10e3/ul Normal 0.00-0.03 [facility] Comment on above: Performed By: #### M G, CMP #### [facility] [address] [place] [address] Dr. Doreen Betancourt IG % 0.3 % Normal 0.0-0.5 [facility] Comment on above: Performed By: #### M G, CMP #### [facility] [address] [place] [address] Dr. Doreen Betancourt LYMPH # 1.6 103/ul Normal 1.2-3.8 [facility] Comment on above: Performed By: #### M G, CMP #### [facility] [address] [place] [address] Dr. Doreen Betancourt Lymphocytes/100 WBC (Bld) 46.4 % Normal 20.5-60.0 [facility] Comment on above: Performed By: #### M G, CMP #### [facility] [address] [place] [address] Dr. Doreen Betancourt MANUAL DIFF REQ NO Normal [facility] Comment on above: Performed By: #### M G, CMP #### [facility] [address] [place] [address] Dr. Doreen Betancourt MCH (RBC) [Entitic mass] 32.1 pg Normal 26.7-34.0 [facility] Comment on above: Performed By: #### M G, CMP #### [facility] [address] [place] [address] Dr. Doreen Betancourt MCHC (RBC) [Mass/Vol] 34.9 g/dL Normal 29.9-35.2 [facility] Comment on above: Performed By: #### M G, CMP #### [facility] [address] [place] [address] Dr. Doreen Betancourt MCV (RBC) [Entitic vol] 91.9 fL Normal 81.0-99.0 [facility] Comment on above: Performed By: #### M G, CMP #### [facility] [address] [place] [address] Dr. Doreen Betancourt MONO # 0.3 103/ul Normal 0.3-0.8 [facility] Comment on above: Performed By: #### M G, CMP #### [facility] [address] [place] [address] Dr. Doreen Betancourt Monocytes/100 WBC (Bld) 9.7 % Normal 1.7-12.0 [facility] Comment on above: Performed By: #### M G, CMP #### [facility] [address] [place] [address] Dr. Doreen Betancourt NEUT # 1.5 103/ul Normal 1.4-6.5 [facility] Comment on above: Performed By: #### M G, CMP #### [facility] [address] [place] [address] Dr. Doreen Betancourt Neutrophils/100 WBC (Bld) 42.4 % Critically low 43.0-75.0 [facility] Comment on above: Performed By: #### Gay Martino, CMP #### [facility] [address] [place] [address] Dr. Doreen Betancourt Platelet mean volume (Bld) [Entitic vol] 11.1 fL Normal 9.5-13.5 [facility] Comment on above: Performed By: #### Gay Martino, CMP #### [facility] [address] [place] [address] Dr. Doreen Betancourt PLT 101 103/ul Critically low 150-450 [facility] Comment on above: Performed By: #### Gay Martino, CMP #### [facility] [address] [place] [address] Dr. Doreen Betancourt RBC 3.93 106/ul Critically low 4.20-5.40 [facility] Comment on above: Performed By: #### Gay Martino, CMP #### [facility] [address] [place] [address] Dr. Doreen Betancourt WBC 3.5 103/ul Critically low 4.0-11.0 [facility] Comment on above: Performed By: #### Gay Martino, CMP #### [facility] [address] [place] [address] Dr. Doreen Betancourt MAGNESIUMon 08-03-2022 Magnesium [Mass/Vol] 2.0 mg/dL Normal 1.8-2.4 [facility] Comment on above: Performed By: #### C MP, MG #### [facility] [address] [place] [address] Dr. Doreen Betancourt PROF 14(COMP METB)on 023 Albumin [Mass/Vol] 3.6 g/dL Normal 3.4-5.0 [facility] Comment on above: Performed By: #### C MP, MG #### [facility] [address] [place] [address] Dr. Doreen Betancourt Albumin/Globulin [Mass ratio] 1.0 {ratio} Normal [facility] Comment on above: Performed By: #### C MP, MG #### [facility] [address] [address] [address] Doreen Betancourt ALP [Catalytic activity/Vol] 120 U/L Critically high 46-116 [facility] Comment on above: Performed By: #### C MP, MG #### [facility] [address] [address] [address] Doreen Betancourt ALT [Catalytic activity/Vol] 80 U/L Critically high 14-59 [facility] Comment on above: Performed By: #### C MP, MG #### [facility] [address] [place] [address] Dr. Doreen Betancourt Anion gap [Moles/Vol] 10.7 mmol/L Normal [facility] Comment on above: Performed By: #### C MP, MG #### [facility] [address] [place] [address] Dr. Doreen Betancourt AST [Catalytic activity/Vol] 62 U/L Critically high 15-37 [facility] Comment on above: Performed By: #### C MP, MG #### [facility] [address] [place] [address] Dr. Doreen Betancourt Bilirubin [Mass/Vol] 0.4 mg/dL Normal 0.2-1.0 [facility] Comment on above: Performed By: #### C MP, MG #### [facility] [address] [place] [address] Dr. Doreen Betancourt Calcium [Mass/Vol] 9.6 mg/dL Normal 8.5-10.1 [facility] Comment on above: Performed By: #### C MP, MG #### [facility] [address] [place] [address] Dr. Doreen Betancourt Chloride [Moles/Vol] 106 mmol/L Normal 98-107 [facility] Comment on above: Performed By: #### C MP, MG #### [facility] [address] [place] [address] Dr. Doreen Betancourt CO2 [Moles/Vol] 29.5 mmol/L Normal 21.0-32.0 [facility] Comment on above: Performed By: #### C MP, MG #### [facility] [address] [place] [address] Dr. Doreen Betancourt Creatinine [Mass/Vol] 0.67 mg/dL Normal 0.55-1.02 [facility] Comment on above: Performed By: #### C MP, MG #### [facility] [address] [place] [address] Dr. Doreen Betancourt EGFR-AF BERMUDIAN >60 Normal >=60 [facility] Comment on above: Performed By: #### C MP, MG #### [facility] [address] [place] [address] Dr. Doreen Betancourt EGFR-NON AF BERMUDIAN >60 Normal >=60 [facility] Comment on above: Performed By: #### C MP, MG #### [facility] [address] [place] [address] Dr. Doreen Betancourt Globulin (S) [Mass/Vol] 3.5 g/dL Normal [facility] Comment on above: Performed By: #### C MP, MG #### [facility] [address] [place] [address] Dr. Doreen Betancourt Glucose [Mass/Vol] 128 mg/dL Critically high 74-106 [facility] Comment on above: Performed By: #### C MP, MG #### [facility] [address] [place] [address] Dr. Doreen Betancourt Potassium [Moles/Vol] 4.2 mmol/L Normal 3.5-5.1 [facility] Comment on above: Performed By: #### C MP, MG #### [facility] [address] [place] [address] Dr. Doreen Betancourt Protein [Mass/Vol] 7.1 g/dL Normal 6.4-8.2 [facility] Comment on above: Performed By: #### C MP, MG #### [facility] [address] [place] [address] Dr. Doreen Betancourt Sodium [Moles/Vol] 142 mmol/L Normal 136-145 [facility] Comment on above: Performed By: #### C MP, MG #### [facility] [address] [place] [address] Dr. Doreen Betancourt Urea nitrogen [Mass/Vol] 12.0 mg/dL Normal 7.0-18.0 [facility] Comment on above: Performed By: #### C MP, MG #### [facility] [address] [place] [address] Dr. Doreen Betancourt Urea nitrogen/Creatinine [Mass ratio] 17.9 mg/mg Normal [facility] Comment on above: Performed By: #### C MP, MG #### [facility] [address] [place] [address] Dr. Doreen Betancourt CEAon 07-21-2022 CEA 8.1 ng/mL Critically high 0.0-4.7 [facility] Comment on above: Result Comment: Nons mokers <3.9 Smokers <5.6 . [employer] Electrochemiluminescence Immunoassay (ECLIA) . Values obtained with different assay methods or kits cannot be used interchangeably. Results cannot be interpreted as absolute evidence of the presence or absence of malignant disease. Performed By: #### C VDTBH #### [facility] [address] [place] [address] Dr. Doreen Betancourt CBC AUTO DIFFon 07-20-2022 BASO # 0.0 103/ul Normal 0.0-0.1 [facility] Comment on above: Performed By: #### C VDTBH #### [facility] [address] [place] [address] Dr. Doreen Betancourt Basophils/100 WBC (Bld) 0.9 % Normal 0.2-2.0 [facility] Comment on above: Performed By: #### C VDTBH #### [facility] [address] [place] [address] Dr. Doreen Betancourt EO # 0.0 103/ul Normal 0.0-0.7 [facility] Comment on above: Performed By: #### C VDTBH #### [facility] [address] [place] [address] Dr. Doreen Betancourt Eosinophils/100 WBC (Bld) 0.6 % Critically low 0.9-7.0 [facility] Comment on above: Performed By: #### C VDTBH #### [facility] [address] [place] [address] Dr. Doreen Betancourt Erythrocyte distribution width (RBC) [Ratio] 17.2 % Critically high 11.0-15.0 [facility] Comment on above: Performed By: #### C VDTBH #### [facility] [address] [place] [address] Dr. Doreen Betancourt Hematocrit (Bld) [Volume fraction] 39.1 % Normal 36.0-48.0 [facility] Comment on above: Performed By: #### C VDTBH #### [facility] [address] [place] [address] Dr. Doreen Betancourt Hemoglobin (Bld) [Mass/Vol] 13.0 g/dL Normal 12.0-16.0 [facility] Comment on above: Performed By: #### C VDTBH #### [facility] [address] [place] [address] Dr. Doreen Betancourt IG # 0.00 10e3/ul Normal 0.00-0.03 [facility] Comment on above: Performed By: #### C VDTBH #### [facility] [address] [place] [address] Dr. Doreen Betancourt IG % 0.0 % Normal 0.0-0.5 [facility] Comment on above: Performed By: #### C VDTBH #### [facility] [address] [place] [address] Dr. Doreen Betancourt LYMPH # 2.0 103/ul Normal 1.2-3.8 [facility] Comment on above: Performed By: #### C VDTBH #### [facility] [address] [place] [address] Dr. Doreen Betancourt Lymphocytes/100 WBC (Bld) 42.1 % Normal 20.5-60.0 [facility] Comment on above: Performed By: #### C VDTBH #### [facility] [address] [place] [address] Dr. Doreen Betancourt MANUAL DIFF REQ NO Normal [facility] Comment on above: Performed By: #### C VDTBH #### [facility] [address] [address] [address] Doreen Betancourt MCH (RBC) [Entitic mass] 31.1 pg Normal 26.7-34.0 [facility] Comment on above: Performed By: #### C VDTBH #### [facility] [address] [place] [address] Dr. Doreen Betancourt MCHC (RBC) [Mass/Vol] 33.2 g/dL Normal 29.9-35.2 [facility] Comment on above: Performed By: #### C VDTBH #### [facility] [address] [place] [address] Dr. Doreen Betancourt MCV (RBC) [Entitic vol] 93.5 fL Normal 81.0-99.0 [facility] Comment on above: Performed By: #### C VDTBH #### [facility] [address] [place] [address] Dr. Doreen Betancourt MONO # 0.6 103/ul Normal 0.3-0.8 [facility] Comment on above: Performed By: #### C VDTBH #### [facility] [address] [place] [address] Dr. Doreen Betancourt Monocytes/100 WBC (Bld) 13.5 % Critically high 1.7-12.0 [facility] Comment on above: Performed By: #### C VDTBH #### [facility] [address] [place] [address] Dr. Doreen Betancourt NEUT # 2.0 103/ul Normal 1.4-6.5 [facility] Comment on above: Performed By: #### C VDTBH #### [facility] [address] [place] [address] Dr. Doreen Betancourt Neutrophils/100 WBC (Bld) 42.9 % Critically low 43.0-75.0 [facility] Comment on above: Performed By: #### C VDTBH #### [facility] [address] [place] [address] Dr. Doreen Betancourt Platelet mean volume (Bld) [Entitic vol] 10.2 fL Normal 9.5-13.5 [facility] Comment on above: Performed By: #### C VDTBH #### [facility] [address] [place] [address] Dr. Doreen Betancourt PLT 143 103/ul Critically low 150-450 [facility] Comment on above: Performed By: #### C VDTBH #### [facility] [address] [place] [address] Dr. Doreen Betancourt RBC 4.18 106/ul Critically low 4.20-5.40 [facility] Comment on above: Performed By: #### C VDTBH #### [facility] [address] [place] [address] Dr. Doreen Betancourt WBC 4.7 103/ul Normal 4.0-11.0 [facility] Comment on above: Performed By: #### C VDTBH #### [facility] [address] [place] [address] Dr. Doreen Betancourt MAGNESIUMon 07-20-2022 Magnesium [Mass/Vol] 2.2 mg/dL Normal 1.8-2.4 [facility] Comment on above: Performed By: #### M G, [facility] #### [facility] [address] [place] [address] Dr. Doreen Betancourt PROF 14(COMP METB)on 023 Albumin [Mass/Vol] 3.8 g/dL Normal 3.4-5.0 [facility] Comment on above: Performed By: #### C BC #### [facility] [address] [place] [address] Dr. Doreen Betancourt Albumin/Globulin [Mass ratio] 1.0 {ratio} Normal [facility] Comment on above: Performed By: #### C BC #### [facility] [address] [place] [address] Dr. Doreen Betancourt ALP [Catalytic activity/Vol] 118 U/L Critically high 46-116 [facility] Comment on above: Performed By: #### C BC #### [facility] [address] [place] [address] Dr. Doreen Betancourt ALT [Catalytic activity/Vol] 57 U/L Normal 14-59 [facility] Comment on above: Performed By: #### C BC #### [facility] [address] [address] [address] Doreen Betancourt Anion gap [Moles/Vol] 13.4 mmol/L Normal Th [facility] Comment on above: Performed By: #### C BC #### [facility] [address] [address] [address] Doreen Betancourt AST [Catalytic activity/Vol] 40 U/L Critically high 15-37 [facility] Comment on above: Performed By: #### C BC #### [facility] [address] [address] [address] Doreen Betancourt Bilirubin [Mass/Vol] 0.4 mg/dL Normal 0.2-1.0 [facility] Comment on above: Performed By: #### C BC #### [facility] [address] [address] [address] Doreen Betancourt Calcium [Mass/Vol] 9.7 mg/dL Normal 8.5-10.1 [facility] Comment on above: Performed By: #### C BC #### [facility] [address] [address] [address] Doreen Betancourt Chloride [Moles/Vol] 103 mmol/L Normal 98-107 [facility] Comment on above: Performed By: #### C BC #### [facility] [address] [address] [address] Doreen Betancourt CO2 [Moles/Vol] 29.1 mmol/L Normal 21.0-32.0 [facility] Comment on above: Performed By: #### C BC #### [facility] [address] [address] [address] Doreen Betancourt Creatinine [Mass/Vol] 0.71 mg/dL Normal 0.55-1.02 [facility] Comment on above: Performed By: #### C BC #### [facility] [address] [address] [address] Doreen Betancourt EGFR-AF BERMUDIAN >60 Normal >=60 [facility] Comment on above: Performed By: #### C BC #### [facility] [address] [place] [address] Dr. Doreen Betancourt EGFR-NON AF BERMUDIAN >60 Normal >=60 [facility] Comment on above: Performed By: #### C BC #### [facility] [address] [address] [address] Doreen Betancourt Globulin (S) [Mass/Vol] 3.7 g/dL Normal [facility] Comment on above: Performed By: #### C BC #### [facility] [address] [address] [address] Doreen Betancourt Glucose [Mass/Vol] 106 mg/dL Normal 74-106 [facility] Comment on above: Performed By: #### C BC #### [facility] [address] [place] [address] Dr. Doreen Betancourt Potassium [Moles/Vol] 4.5 mmol/L Normal 3.5-5.1 [facility] Comment on above: Performed By: #### C BC #### [facility] [address] [place] [address] Dr. Doreen Betancourt Protein [Mass/Vol] 7.5 g/dL Normal 6.4-8.2 [facility] Comment on above: Performed By: #### C BC #### [facility] [address] [place] [address] Dr. Doreen Betancourt Sodium [Moles/Vol] 141 mmol/L Normal 136-145 [facility] Comment on above: Performed By: #### C BC #### [facility] [address] [place] [address] Dr. Doreen Betancourt Urea nitrogen [Mass/Vol] 15.0 mg/dL Normal 7.0-18.0 [facility] Comment on above: Performed By: #### C BC #### [facility] [address] [place] [address] Dr. Doreen Betancourt Urea nitrogen/Creatinine [Mass ratio] 21.1 mg/mg Normal [facility] Comment on above: Performed By: #### C BC #### [facility] [address] [place] [address] Dr. Doreen Betancourt Albumin [Mass/volume] in Ser um or PlasmaOrdered By: Isaías Jordan on 07-11-2022 Albumin [Mass/Vol] 3.8 g/dL 3.2-5.5 [facility] Creatinine and Glomerular fi ltration rate.predicted panel (S/P/Bld)Ordered By: Isaías Jordan on 07-11-2022 Creatinine [Mass/Vol] 0.64 mg/dL 0.44-1.03 [facility] Estimated glomerular filtrat ion rate (GFR) non- AmericanOrdered By: Isaías Jordan on 07-11-2022 GFR/1.73 sq M.predicted among non-blacks MDRD (S/P/Bld) [Vol rate/Area] > 60 mL/Min [facility] GFR/1.73 sq M.predicted among non-blacks MDRD (S/P/Bld) [Vol rate/Area] Estimated glomerular filtration rate (GFR) non- [facility] Globulin Calc (S) [Mass/Vol] Ordered By: Isaías Jordan on 07-11-2022 Globulin (S) [Mass/Vol] 2.8 g/dL [facility] - Chemistry and C hemistry - challengeOrdered By: Isaías Jordan on 07-11-2022 Magnesium [Mass/Vol] 2.2 mg/dL 1.6-2.6 [facility] No Panel InformationOrdered By: Isaías Jordan on 07-11-2022 Estimated GFR () > 60 mL/Min [facility] Comment on above: GFR estimated refere nce range: According to KDOQI guidelines, <60 ml/min/1.73m2 is sufficient to diagnose a patient with chronic kidney disease. Pharmacy Creatinine Clearance (Chem 97.34 [facility] Protein [Mass/volume] in Ser um or PlasmaOrdered By: Isaías Jordan on 07-11-2022 Protein [Mass/Vol] 6.6 g/dL 6.1-7.9 [facility] Serum or plasma alanine villalpando otransferase measurement without P-5'-P (enzymatic activiOrdered By: Isaías Jordan on 07-11-2022 ALT No additional P-5'-P [Catalytic activity/Vol] 71 U/L 10-60 [facility] Serum or plasma albumin/glob ulin mass ratioOrdered By: Isaías Jordan on 07-11-2022 Albumin/Globulin [Mass ratio] 1.4 {ratio} [facility] Serum or plasma alkaline joselito sphatase measurement (enzymatic activity/volume)Ordered By: Isaías Jordan on 07-11-2022 ALP [Catalytic activity/Vol] 72 U/L 32-92 [facility] Serum or plasma anion gap de terminationOrdered By: Isaías Jordan on 07-11-2022 Anion gap [Moles/Vol] 9.7 mmol/L 6.0-15.0 [facility] Serum or plasma aspartate am inotransferase measurement (enzymatic activity/volume)Ordered By: Isaías Jordan on 07-11-2022 AST [Catalytic activity/Vol] 56 U/L 10-42 [facility] Serum or plasma calcium idalmis urement (mass/volume)Ordered By: Isaías Jordan on 07-11-2022 Calcium [Mass/Vol] 9.1 mg/dL 8.2-10.2 [facility] Serum or plasma chloride jose surement (moles/volume)Ordered By: Isaías Jordan on 07-11-2022 Chloride [Moles/Vol] 103 mmol/L 95-114 [facility] Serum or plasma glucose idalmis urement (mass/volume)Ordered By: Isaías Jordan on 07-11-2022 Glucose [Mass/Vol] 81 mg/dL 70-100 [facility] Comment on above: ADA recommended refe rence rangeRandom Glucose Reference Range is dependent on time and content of last meal. Glucose of more than 200 mg/dL in a nonstressed, ambulatory subject supports the diagnosis of Diabetes Mellitus. Serum or plasma potassium me asurement (moles/volume)Ordered By: Isaías Jordan on 07-11-2022 Potassium [Moles/Vol] 4.1 mmol/L 3.5-5.1 [facility] Serum or plasma sodium measu rement (moles/volume)Ordered By: Isaías Jordan on 07-11-2022 Sodium [Moles/Vol] 134 mmol/L 136-146 [facility] Serum or plasma total biliru bin measurement (mass/volume)Ordered By: Isaías Jordan on 07-11-2022 Bilirubin [Mass/Vol] 0.8 mg/dL 0.3-1.2 [facility] Serum or plasma total carbon dioxide measurement (moles/volume)Ordered By: Isaías Jordan on 07-11-2022 CO2 [Moles/Vol] 25.4 mmol/L 22.0-30.0 [facility] Serum or plasma urea nitroge n measurement (mass/volume)Ordered By: Isaías Jordan on 07-11-2022 Urea nitrogen [Mass/Vol] 14 mg/dL 03-29 [facility] Albumin [Mass/volume] in Ser um or PlasmaOrdered By: Isaías Jordan on 07-06-2022 Albumin [Mass/Vol] 4.2 g/dL 3.2-5.5 [facility] CBC AUTO DIFFon 07-06-2022 BASO # 0.0 103/ul Normal 0.0-0.1 [facility] Comment on above: Performed By: #### M G, CMP #### [facility] [address] [address] [address] Doreen Betancourt Basophils/100 WBC (Bld) 0.7 % Normal 0.2-2.0 [facility] Comment on above: Performed By: #### M G, CMP #### [facility] [address] [address] [address] Doreen Betancourt EO # 0.1 103/ul Normal 0.0-0.7 [facility] Comment on above: Performed By: #### M G, CMP #### [facility] [address] [address] [address] Doreen Betancourt Eosinophils/100 WBC (Bld) 1.1 % Normal 0.9-7.0 [facility] Comment on above: Performed By: #### M G, CMP #### [facility] [address] [address] [address] Doreen Betancourt Erythrocyte distribution width (RBC) [Ratio] 16.9 % Critically high 11.0-15.0 [facility] Comment on above: Performed By: #### M Salena, CMP #### [facility] [address] [place] [address] Dr. Doreen Betancourt Hematocrit (Bld) [Volume fraction] 38.9 % Normal 36.0-48.0 [facility] Comment on above: Performed By: #### M Salena, CMP #### [facility] [address] [place] [address] Dr. Doreen Betancourt Hemoglobin (Bld) [Mass/Vol] 14.2 g/dL Normal 12.0-16.0 [facility] Comment on above: Performed By: #### Gay Martino, CMP #### [facility] [address] [place] [address] Dr. Doreen Betancourt IG # 0.01 10e3/ul Normal 0.00-0.03 [facility] Comment on above: Performed By: #### Gay Martino, CMP #### [facility] [address] [place] [address] Dr. Doreen Betancourt IG % 0.2 % Normal 0.0-0.5 [facility] Comment on above: Performed By: #### Gay Martino, CMP #### [facility] [address] [place] [address] Dr. Doreen Betancourt LYMPH # 2.0 103/ul Normal 1.2-3.8 [facility] Comment on above: Performed By: #### Gay Martino, CMP #### [facility] [address] [place] [address] Dr. Doreen Betancourt Lymphocytes/100 WBC (Bld) 43.2 % Normal 20.5-60.0 [facility] Comment on above: Performed By: #### M G, CMP #### [facility] [address] [place] [address] Dr. Doreen Betancourt MANUAL DIFF REQ NO Normal [facility] Comment on above: Performed By: #### M G, CMP #### [facility] [address] [place] [address] Dr. Doreen Betancourt MCH (RBC) [Entitic mass] 34.5 pg Critically high 26.7-34.0 [facility] Comment on above: Performed By: #### M G, CMP #### [facility] [address] [place] [address] Dr. Doreen Betancourt MCHC (RBC) [Mass/Vol] 36.5 g/dL Critically high 29.9-35.2 [facility] Comment on above: Performed By: #### M G, CMP #### [facility] [address] [place] [address] Dr. Doreen Betancourt MCV (RBC) [Entitic vol] 94.6 fL Normal 81.0-99.0 [facility] Comment on above: Performed By: #### M G, CMP #### [facility] [address] [place] [address] Dr. Doreen Betancourt MONO # 0.4 103/ul Normal 0.3-0.8 [facility] Comment on above: Performed By: #### M G, CMP #### [facility] [address] [place] [address] Dr. Doreen Betancourt Monocytes/100 WBC (Bld) 9.6 % Normal 1.7-12.0 [facility] Comment on above: Performed By: #### M G, CMP #### [facility] [address] [place] [address] Dr. Doreen Betancourt NEUT # 2.1 103/ul Normal 1.4-6.5 [facility] Comment on above: Performed By: #### M G, CMP #### [facility] [address] [place] [address] Dr. Doreen Betancourt Neutrophils/100 WBC (Bld) 45.2 % Normal 43.0-75.0 [facility] Comment on above: Performed By: #### M G, CMP #### [facility] [address] [place] [address] Dr. Doreen Betancourt Platelet mean volume (Bld) [Entitic vol] 9.8 fL Normal 9.5-13.5 [facility] Comment on above: Performed By: #### M G, CMP #### [facility] [address] [address] [address] Doreen Betancourt PLT 155 103/ul Normal 150-450 [facility] Comment on above: Performed By: #### M G, CMP #### [facility] [address] [address] [address] Doreen Betancourt RBC 4.11 106/ul Critically low 4.20-5.40 [facility] Comment on above: Performed By: #### M G, CMP #### [facility] [address] [address] [address] Doreen Betancourt WBC 4.6 103/ul Normal 4.0-11.0 [facility] Comment on above: Performed By: #### M G, CMP #### [facility] [address] [address] [address] Doreen Betancourt Creatinine and Glomerular fi ltration rate.predicted panel (S/P/Bld)Ordered By: Isaías Jordan on 07-06-2022 Creatinine [Mass/Vol] 0.43 mg/dL 0.44-1.03 [facility] Estimated glomerular filtrat ion rate (GFR) non- AmericanOrdered By: Isaías Jordan on 07-06-2022 GFR/1.73 sq M.predicted among non-blacks MDRD (S/P/Bld) [Vol rate/Area] > 60 mL/Min [facility] Globulin Calc (S) [Mass/Vol] Ordered By: Isaías Jordan on 07-06-2022 Globulin (S) [Mass/Vol] 2.6 g/dL [facility] - Chemistry and C hemistry - challengeOrdered By: Isaías Jordan on 07-06-2022 Magnesium [Mass/Vol] 2.8 mg/dL 1.6-2.6 [facility] MAGNESIUMon 07-06-2022 Magnesium [Mass/Vol] 2.0 mg/dL Normal 1.8-2.4 [facility] Comment on above: Performed By: #### C BC #### [facility] [address] [address] [address] Doreen Betancourt No Panel InformationOrdered By: Isaías Jordan on 07-06-2022 Estimated GFR () > 60 mL/Min [facility] Comment on above: GFR estimated refere nce range: According to KDOQI guidelines, <60 ml/min/1.73m2 is sufficient to diagnose a patient with chronic kidney disease. Pharmacy Creatinine Clearance (Chem N/A [facility] PROF 14(COMP METB)on 022 Albumin [Mass/Vol] 4.2 g/dL Normal 3.4-5.0 [facility] Comment on above: Result Comment: pref [place] [facility]; ultrafuged specimen Performed By: #### C BC #### [facility] [address] [place] [address] Dr. Doreen Betancourt Albumin/Globulin [Mass ratio] 1.6 {ratio} Normal [facility] Comment on above: Performed By: #### C BC #### [facility] [address] [place] [address] Dr. Doreen Betancourt ALP [Catalytic activity/Vol] 102 U/L Normal 46-116 [facility] Comment on above: Result Comment: pref ormed at [facility]; ultrafuged specimen Performed By: #### C BC #### [facility] [address] [address] [address] Doreen Betancourt ALT [Catalytic activity/Vol] 38 U/L Normal 14-59 [facility] Comment on above: Result Comment: pref ormed at [facility]; ultrafuged specimen Performed By: #### C BC #### [facility] [address] [address] [address] oDreen Betancourt Anion gap [Moles/Vol] 11.9 mmol/L Normal [facility] Comment on above: Performed By: #### C BC #### [facility] [address] [address] [address] Doreen Betancourt AST [Catalytic activity/Vol] 49 U/L Critically high 15-37 [facility] Comment on above: Result Comment: pref ormed at [facility]; ultrafuged specimen Performed By: #### C BC #### [facility] [address] [place] [address] Dr. Doreen Betancourt Bilirubin [Mass/Vol] 0.7 mg/dL Normal 0.2-1.0 [facility] Comment on above: Result Comment: pref ormed at [facility]; ultrafuged specimen Performed By: #### C BC #### [facility] [address] [place] [address] Dr. Doreen Betancourt Calcium [Mass/Vol] 9.5 mg/dL Normal 8.5-10.1 [facility] Comment on above: Result Comment: pref ormed at [facility]; ultrafuged specimen Performed By: #### C BC #### [facility] [address] [place] [address] Dr. Doreen Betancourt Chloride [Moles/Vol] 101 mmol/L Normal 98-107 [facility] Comment on above: Result Comment: pref ormed at [facility]; ultrafuged specimen Performed By: #### C BC #### [facility] [address] [place] [address] Dr. Doreen Betancourt CO2 [Moles/Vol] 25.4 mmol/L Normal 21.0-32.0 [facility] Comment on above: Result Comment: pref ormed at [facility]; ultrafuged specimen Performed By: #### C BC #### [facility] [address] [place] [address] Dr. Doreen Betancourt Creatinine [Mass/Vol] 0.43 mg/dL Critically low 0.55-1.02 [facility] Comment on above: Result Comment: pref ormed at [facility]; ultrafuged specimen Performed By: #### C BC #### [facility] [address] [place] [address] Dr. Doreen Betancourt EGFR-AF BERMUDIAN >60 Normal >=60 [facility] Comment on above: Performed By: #### C BC #### [facility] [address] [place] [address] Dr. Doreen Betancourt EGFR-NON AF BERMUDIAN >60 Normal >=60 [facility] Comment on above: Performed By: #### C BC #### [facility] [address] [place] [address] Dr. Doreen Betancourt Globulin (S) [Mass/Vol] 2.6 g/dL Normal [facility] Comment on above: Performed By: #### C BC #### [facility] [address] [address] [address] Doreen Betancourt Glucose [Mass/Vol] 102 mg/dL Normal 74-106 [facility] Comment on above: Result Comment: pref ormed at [facility]; ultrafuged specimen Performed By: #### C BC #### [facility] [address] [place] [address] Dr. Doreen Betancourt Potassium [Moles/Vol] 5.3 mmol/L Critically high 3.5-5.1 [facility] Comment on above: Result Comment: pref ormed at [facility]; ultrafuged specimen Performed By: #### C BC #### [facility] [address] [place] [address] Dr. Doreen Betancourt Protein [Mass/Vol] 6.8 g/dL Normal 6.4-8.2 [facility] Comment on above: Result Comment: pref ormed at [facility]; ultrafuged specimen Performed By: #### C BC #### [facility] [address] [place] [address] Dr. Doreen Betancourt Sodium [Moles/Vol] 133 mmol/L Critically low 136-145 [facility] Comment on above: Result Comment: pref ormed at [facility]; ultrafuged specimen Performed By: #### C BC #### [facility] [address] [place] [address] Dr. Doreen Betancourt Urea nitrogen [Mass/Vol] 18.0 mg/dL Normal 7.0-18.0 [facility] Comment on above: Result Comment: pref ormed at [facility]; ultrafuged specimen Performed By: #### C BC #### [facility] [address] [address] [address] Doreen Betancourt Urea nitrogen/Creatinine [Mass ratio] 41.6 mg/mg Normal [facility] Comment on above: Performed By: #### C BC #### [facility] [address] [place] [address] Dr. Doreen Betancourt Protein [Mass/volume] in Ser um or PlasmaOrdered By: Isaías Jordan on 07-06-2022 Protein [Mass/Vol] 6.8 g/dL 6.1-7.9 [facility] Serum or plasma alanine villalpando otransferase measurement without P-5'-P (enzymatic activiOrdered By: Isaías Jordan on 07-06-2022 ALT No additional P-5'-P [Catalytic activity/Vol] 38 U/L 10-60 [facility] Serum or plasma albumin/glob ulin mass ratioOrdered By: Isaías Jordan on 07-06-2022 Albumin/Globulin [Mass ratio] 1.6 {ratio} [facility] Serum or plasma alkaline joselito sphatase measurement (enzymatic activity/volume)Ordered By: Isaías Jordan on 07-06-2022 ALP [Catalytic activity/Vol] 102 U/L 32-92 [facility] Serum or plasma anion gap de terminationOrdered By: Isaías Jordan on 07-06-2022 Anion gap [Moles/Vol] 11.9 mmol/L 6.0-15.0 [facility] Serum or plasma aspartate am inotransferase measurement (enzymatic activity/volume)Ordered By: Isaías Jordan on 07-06-2022 AST [Catalytic activity/Vol] 49 U/L 10-42 [facility] Serum or plasma calcium idalmis urement (mass/volume)Ordered By: Isaías Jordan on 07-06-2022 Calcium [Mass/Vol] 9.5 mg/dL 8.2-10.2 [facility] Serum or plasma chloride jose surement (moles/volume)Ordered By: Isaías Jordan on 07-06-2022 Chloride [Moles/Vol] 101 mmol/L 95-114 [facility] Serum or plasma glucose idalmis urement (mass/volume)Ordered By: Isaías Jordan on 07-06-2022 Glucose [Mass/Vol] 102 mg/dL 70-100 [facility] Comment on above: ADA recommended refe rence rangeRandom Glucose Reference Range is dependent on time and content of last meal. Glucose of more than 200 mg/dL in a nonstressed, ambulatory subject supports the diagnosis of Diabetes Mellitus. Serum or plasma potassium me asurement (moles/volume)Ordered By: Isaías Jordan on 07-06-2022 Potassium [Moles/Vol] 5.3 mmol/L 3.5-5.1 [facility] Serum or plasma sodium measu rement (moles/volume)Ordered By: Isaías Jordan on 07-06-2022 Sodium [Moles/Vol] 133 mmol/L 136-146 [facility] Serum or plasma total biliru bin measurement (mass/volume)Ordered By: Isaías Jordan on 07-06-2022 Bilirubin [Mass/Vol] 0.7 mg/dL 0.3-1.2 [facility] Serum or plasma total carbon dioxide measurement (moles/volume)Ordered By: Isaías Jordan on 07-06-2022 CO2 [Moles/Vol] 25.4 mmol/L 22.0-30.0 [facility] Serum or plasma urea nitroge n measurement (mass/volume)Ordered By: Isaías Jordan on 07-06-2022 Urea nitrogen [Mass/Vol] 18 mg/dL 03-29 [facility] CBC AUTO DIFFon 06-22-2022 BASO # 0.0 103/ul Normal 0.0-0.1 [facility] Comment on above: Performed By: #### C BC #### [facility] [address] [place] [address] Dr. Doreen Betancourt Basophils/100 WBC (Bld) 0.5 % Normal 0.2-2.0 [facility] Comment on above: Performed By: #### C BC #### [facility] [address] [address] [address] Doreen Betancourt EO # 0.1 103/ul Normal 0.0-0.7 [facility] Comment on above: Performed By: #### C BC #### [facility] [address] [place] [address] Dr. Doreen Betancourt Eosinophils/100 WBC (Bld) 1.3 % Normal 0.9-7.0 [facility] Comment on above: Performed By: #### C BC #### [facility] [address] [place] [address] Dr. Doreen Betancourt Erythrocyte distribution width (RBC) [Ratio] 15.3 % Critically high 11.0-15.0 [facility] Comment on above: Performed By: #### C BC #### [facility] [address] [place] [address] Dr. Doreen Betancourt Hematocrit (Bld) [Volume fraction] 38.7 % Normal 36.0-48.0 [facility] Comment on above: Performed By: #### C BC #### [facility] [address] [place] [address] Dr. Doreen Betancourt Hemoglobin (Bld) [Mass/Vol] 12.5 g/dL Normal 12.0-16.0 [facility] Comment on above: Performed By: #### C BC #### [facility] [address] [place] [address] Dr. Doreen Betancourt IG # 0.01 10e3/ul Normal 0.00-0.03 [facility] Comment on above: Performed By: #### C BC #### [facility] [address] [place] [address] Dr. Doreen Betancourt IG % 0.3 % Normal 0.0-0.5 [facility] Comment on above: Performed By: #### C BC #### [facility] [address] [place] [address] Dr. Doreen Betancourt LYMPH # 1.8 103/ul Normal 1.2-3.8 [facility] Comment on above: Performed By: #### C BC #### [facility] [address] [place] [address] Dr. Doreen Betancourt Lymphocytes/100 WBC (Bld) 46.0 % Normal 20.5-60.0 [facility] Comment on above: Performed By: #### C BC #### [facility] [address] [place] [address] Dr. Doreen Betancourt MANUAL DIFF REQ NO Normal [facility] Comment on above: Performed By: #### C BC #### [facility] [address] [place] [address] Dr. Doreen Betancourt MCH (RBC) [Entitic mass] 30.0 pg Normal 26.7-34.0 [facility] Comment on above: Performed By: #### C BC #### [facility] [address] [place] [address] Dr. Doreen Betancourt MCHC (RBC) [Mass/Vol] 32.3 g/dL Normal 29.9-35.2 [facility] Comment on above: Performed By: #### C BC #### [facility] [address] [place] [address] Dr. Doreen Betancourt MCV (RBC) [Entitic vol] 93.0 fL Normal 81.0-99.0 [facility] Comment on above: Performed By: #### C BC #### [facility] [address] [place] [address] Dr. Doreen Betancourt MONO # 0.4 103/ul Normal 0.3-0.8 [facility] Comment on above: Performed By: #### C BC #### [facility] [address] [place] [address] Dr. Doreen Betancourt Monocytes/100 WBC (Bld) 9.5 % Normal 1.7-12.0 [facility] Comment on above: Performed By: #### C BC #### [facility] [address] [place] [address] Dr. Doreen Betancourt NEUT # 1.7 103/ul Normal 1.4-6.5 [facility] Comment on above: Performed By: #### C BC #### [facility] [address] [place] [address] Dr. Doreen Betancourt Neutrophils/100 WBC (Bld) 42.4 % Critically low 43.0-75.0 [facility] Comment on above: Performed By: #### C BC #### [facility] [address] [place] [address] Dr. Doreen Betancourt Platelet mean volume (Bld) [Entitic vol] 9.9 fL Normal 9.5-13.5 [facility] Comment on above: Performed By: #### C BC #### [facility] [address] [place] [address] Dr. Doreen Betancourt PLT 178 103/ul Normal 150-450 [facility] Comment on above: Performed By: #### C BC #### [facility] [address] [place] [address] Dr. Doreen Betancourt RBC 4.16 106/ul Critically low 4.20-5.40 [facility] Comment on above: Performed By: #### C BC #### [facility] [address] [place] [address] Dr. Doreen Betancourt WBC 4.0 103/ul Normal 4.0-11.0 [facility] Comment on above: Performed By: #### C BC #### [facility] [address] [place] [address] Dr. Doreen Betancourt MAGNESIUMon 06-22-2022 Magnesium [Mass/Vol] 1.9 mg/dL Normal 1.8-2.4 [facility] Comment on above: Performed By: #### M G, CMP #### [facility] [address] [place] [address] Dr. Doreen Betancourt PROF 14(COMP METB)on 022 Albumin [Mass/Vol] 3.7 g/dL Normal 3.4-5.0 [facility] Comment on above: Performed By: #### M Salena, CMP #### [facility] [address] [place] [address] Dr. Doreen Betancourt Albumin/Globulin [Mass ratio] 1.1 {ratio} Normal [facility] Comment on above: Performed By: #### M Salena, CMP #### [facility] [address] [place] [address] Dr. Doreen Betancourt ALP [Catalytic activity/Vol] 125 U/L Critically high 46-116 [facility] Comment on above: Performed By: #### M G, CMP #### [facility] [address] [place] [address] Dr. Doreen Betancourt ALT [Catalytic activity/Vol] 16 U/L Normal 14-59 [facility] Comment on above: Performed By: #### M G, CMP #### [facility] [address] [place] [address] Dr. Doreen eBtancourt Anion gap [Moles/Vol] 8.8 mmol/L Normal [facility] Comment on above: Performed By: #### M G, CMP #### [facility] [address] [place] [address] Dr. Doreen Betancourt AST [Catalytic activity/Vol] 5 U/L Critically low 15-37 [facility] Comment on above: Performed By: #### M G, CMP #### [facility] [address] [place] [address] Dr. Doreen Betancourt Bilirubin [Mass/Vol] 0.3 mg/dL Normal 0.2-1.0 [facility] Comment on above: Performed By: #### M G, CMP #### [facility] [address] [place] [address] Dr. Doreen Betancourt Calcium [Mass/Vol] 8.8 mg/dL Normal 8.5-10.1 [facility] Comment on above: Performed By: #### M G, CMP #### [facility] [address] [place] [address] Dr. Doreen Betancourt Chloride [Moles/Vol] 104 mmol/L Normal 98-107 [facility] Comment on above: Performed By: #### M G, CMP #### [facility] [address] [place] [address] Dr. Doreen Betancourt CO2 [Moles/Vol] 29.5 mmol/L Normal 21.0-32.0 [facility] Comment on above: Performed By: #### M G, CMP #### [facility] [address] [place] [address] Dr. Doreen Betancourt Creatinine [Mass/Vol] 0.75 mg/dL Normal 0.55-1.02 [facility] Comment on above: Performed By: #### M G, CMP #### [facility] [address] [place] [address] Dr. Doreen Betancourt EGFR-AF BERMUDIAN >60 Normal >=60 [facility] Comment on above: Performed By: #### M G, CMP #### [facility] [address] [place] [address] Dr. Doreen Betancourt EGFR-NON AF BERMUDIAN >60 Normal >=60 [facility] Comment on above: Performed By: #### M G, CMP #### [facility] [address] [address] [address] Doreen Betancourt Globulin (S) [Mass/Vol] 3.3 g/dL Normal [facility] Comment on above: Performed By: #### M G, CMP #### [facility] [address] [address] [address] Doreen Betancourt Glucose [Mass/Vol] 110 mg/dL Critically high 74-106 [facility] Comment on above: Performed By: #### M G, CMP #### [facility] [address] [address] [address] Doreen Betancourt Potassium [Moles/Vol] 4.3 mmol/L Normal 3.5-5.1 [facility] Comment on above: Performed By: #### M G, CMP #### [facility] [address] [place] [address] Dr. Doreen Betancourt Protein [Mass/Vol] 7.0 g/dL Normal 6.4-8.2 [facility] Comment on above: Performed By: #### M G, CMP #### [facility] [address] [place] [address] Dr. Doreen Betancourt Sodium [Moles/Vol] 138 mmol/L Normal 136-145 [facility] Comment on above: Performed By: #### M G, CMP #### [facility] [address] [place] [address] Dr. Doreen Betancourt Urea nitrogen [Mass/Vol] 11.0 mg/dL Normal 7.0-18.0 [facility] Comment on above: Performed By: #### M G, CMP #### [facility] [address] [place] [address] Dr. Doreen Betancourt Urea nitrogen/Creatinine [Mass ratio] 14.7 mg/mg Normal [facility] Comment on above: Performed By: #### M G, CMP #### [facility] [address] [place] [address] Dr. Doreen Betancourt CBC AUTO DIFFon 06-08-2022 BASO # 0.0 103/ul Normal 0.0-0.1 [facility] Comment on above: Performed By: #### M G, CMP #### [facility] [address] [place] [address] Dr. Doreen Betancourt Basophils/100 WBC (Bld) 0.8 % Normal 0.2-2.0 [facility] Comment on above: Performed By: #### M G, CMP #### [facility] [address] [place] [address] Dr. Doreen Betancourt EO # 0.1 103/ul Normal 0.0-0.7 [facility] Comment on above: Performed By: #### M G, CMP #### [facility] [address] [place] [address] Dr. Doreen Betancourt Eosinophils/100 WBC (Bld) 2.3 % Normal 0.9-7.0 [facility] Comment on above: Performed By: #### M G, CMP #### [facility] [address] [place] [address] Dr. Doreen Betancourt Erythrocyte distribution width (RBC) [Ratio] 14.5 % Normal 11.0-15.0 [facility] Comment on above: Performed By: #### M G, CMP #### [facility] [address] [place] [address] Dr. Doreen Betancourt Hematocrit (Bld) [Volume fraction] 38.8 % Normal 36.0-48.0 [facility] Comment on above: Performed By: #### M G, CMP #### [facility] [address] [place] [address] Dr. Doreen Betancourt Hemoglobin (Bld) [Mass/Vol] 12.6 g/dL Normal 12.0-16.0 [facility] Comment on above: Performed By: #### M G, CMP #### [facility] [address] [place] [address] Dr. Doreen Betancourt IG # 0.00 10e3/ul Normal 0.00-0.03 [facility] Comment on above: Performed By: #### M G, CMP #### [facility] [address] [place] [address] Dr. Doreen Betancourt IG % 0.0 % Normal 0.0-0.5 [facility] Comment on above: Performed By: #### M G, CMP #### [facility] [address] [place] [address] Dr. Doreen Betancourt LYMPH # 1.9 103/ul Normal 1.2-3.8 [facility] Comment on above: Performed By: #### M G, CMP #### [facility] [address] [place] [address] Dr. Doreen Betancourt Lymphocytes/100 WBC (Bld) 46.7 % Normal 20.5-60.0 [facility] Comment on above: Performed By: #### M G, CMP #### [facility] [address] [place] [address] Dr. Doreen Betancourt MANUAL DIFF REQ NO Normal [facility] Comment on above: Performed By: #### M G, CMP #### [facility] [address] [place] [address] Dr. Doreen Betancourt MCH (RBC) [Entitic mass] 30.3 pg Normal 26.7-34.0 [facility] Comment on above: Performed By: #### M G, CMP #### [facility] [address] [place] [address] Dr. Doreen Betancourt MCHC (RBC) [Mass/Vol] 32.5 g/dL Normal 29.9-35.2 [facility] Comment on above: Performed By: #### M G, CMP #### [facility] [address] [place] [address] Dr. Doreen Betancourt MCV (RBC) [Entitic vol] 93.3 fL Normal 81.0-99.0 [facility] Comment on above: Performed By: #### M G, CMP #### [facility] [address] [place] [address] Dr. Doreen Betancourt MONO # 0.4 103/ul Normal 0.3-0.8 [facility] Comment on above: Performed By: #### M G, CMP #### [facility] [address] [place] [address] Dr. Doreen Betancourt Monocytes/100 WBC (Bld) 11.1 % Normal 1.7-12.0 [facility] Comment on above: Performed By: #### M G, CMP #### [facility] [address] [place] [address] Dr. Doreen Betancourt NEUT # 1.6 103/ul Normal 1.4-6.5 [facility] Comment on above: Performed By: #### M G, CMP #### [facility] [address] [place] [address] Dr. Doreen Betancourt Neutrophils/100 WBC (Bld) 39.1 % Critically low 43.0-75.0 [facility] Comment on above: Performed By: #### M G, CMP #### [facility] [address] [place] [address] Dr. Doreen Betancourt Platelet mean volume (Bld) [Entitic vol] 9.9 fL Normal 9.5-13.5 [facility] Comment on above: Performed By: #### Gay G, CMP #### [facility] [address] [place] [address] Dr. Doreen Betancourt PLT 220 103/ul Normal 150-450 [facility] Comment on above: Performed By: #### M G, CMP #### [facility] [address] [place] [address] Dr. Doreen Betancourt RBC 4.16 106/ul Critically low 4.20-5.40 [facility] Comment on above: Performed By: #### M G, CMP #### [facility] [address] [place] [address] Dr. Doreen Betancourt WBC 4.0 103/ul Normal 4.0-11.0 [facility] Comment on above: Performed By: #### M G, CMP #### [facility] [address] [place] [address] Dr. Doreen Betancourt MAGNESIUMon 06-08-2022 Magnesium [Mass/Vol] 2.2 mg/dL Normal 1.8-2.4 [facility] Comment on above: Performed By: #### C VDTBH #### [facility] [address] [place] [address] Dr. Doreen Betancourt PROF 14(COMP METB)on 022 Albumin [Mass/Vol] 3.9 g/dL Normal 3.4-5.0 [facility] Comment on above: Performed By: #### C VDTBH #### [facility] [address] [place] [address] Dr. Doreen Betancourt Albumin/Globulin [Mass ratio] 1.1 {ratio} Normal [facility] Comment on above: Performed By: #### C VDTBH #### [facility] [address] [place] [address] Dr. Doreen Betancourt ALP [Catalytic activity/Vol] 100 U/L Normal 46-116 [facility] Comment on above: Performed By: #### C VDTBH #### [facility] [address] [place] [address] Dr. Doreen Betancourt ALT [Catalytic activity/Vol] 19 U/L Normal 14-59 [facility] Comment on above: Performed By: #### C VDTBH #### [facility] [address] [place] [address] Dr. Doreen Betancourt Anion gap [Moles/Vol] 6.9 mmol/L Normal [facility] Comment on above: Performed By: #### C VDTBH #### [facility] [address] [place] [address] Dr. Doreen Betancourt AST [Catalytic activity/Vol] 14 U/L Critically low 15-37 [facility] Comment on above: Performed By: #### C VDTBH #### [facility] [address] [place] [address] Dr. Doreen Betancourt Bilirubin [Mass/Vol] 0.3 mg/dL Normal 0.2-1.0 [facility] Comment on above: Performed By: #### C VDTBH #### [facility] [address] [place] [address] Dr. Doreen Betancourt Calcium [Mass/Vol] 9.6 mg/dL Normal 8.5-10.1 [facility] Comment on above: Performed By: #### C VDTBH #### [facility] [address] [address] [address] Doreen Betancourt Chloride [Moles/Vol] 105 mmol/L Normal 98-107 [facility] Comment on above: Performed By: #### C VDTBH #### [facility] [address] [place] [address] Dr. Doreen Betancourt CO2 [Moles/Vol] 32.2 mmol/L Critically high 21.0-32.0 [facility] Comment on above: Performed By: #### C VDTBH #### [facility] [address] [place] [address] Dr. Doreen Betancourt Creatinine [Mass/Vol] 0.69 mg/dL Normal 0.55-1.02 [facility] Comment on above: Performed By: #### C VDTBH #### [facility] [address] [place] [address] Dr. Doreen Betancourt EGFR-AF BERMUDIAN >60 Normal >=60 [facility] Comment on above: Performed By: #### C VDTBH #### [facility] [address] [place] [address] Dr. Doreen Betancourt EGFR-NON AF BERMUDIAN >60 Normal >=60 [facility] Comment on above: Performed By: #### C VDTBH #### [facility] [address] [place] [address] Dr. Doreen Betancourt Globulin (S) [Mass/Vol] 3.6 g/dL Normal [facility] Comment on above: Performed By: #### C VDTBH #### [facility] [address] [place] [address] Dr. Doreen Betancourt Glucose [Mass/Vol] 103 mg/dL Normal 74-106 [facility] Comment on above: Performed By: #### C VDTBH #### [facility] [address] [place] [address] Dr. Doreen Betancourt Potassium [Moles/Vol] 5.1 mmol/L Normal 3.5-5.1 [facility] Comment on above: Performed By: #### C VDTBH #### [facility] [address] [place] [address] Dr. Doreen Betancourt Protein [Mass/Vol] 7.5 g/dL Normal 6.4-8.2 [facility] Comment on above: Performed By: #### C VDTBH #### [facility] [address] [place] [address] Dr. Doreen Betancourt Sodium [Moles/Vol] 139 mmol/L Normal 136-145 [facility] Comment on above: Performed By: #### C VDTBH #### [facility] [address] [place] [address] Dr. Doreen Betancourt Urea nitrogen [Mass/Vol] 13.0 mg/dL Normal 7.0-18.0 [facility] Comment on above: Performed By: #### C VDTBH #### [facility] [address] [place] [address] Dr. Doreen Betancourt Urea nitrogen/Creatinine [Mass ratio] 18.8 mg/mg Normal [facility] Comment on above: Performed By: #### C VDTBH #### [facility] [address] [place] [address] Dr. Doreen Betancourt CBC AUTO DIFFon 06-01-2022 BASO # 0.0 103/ul Normal 0.0-0.1 [facility] Comment on above: Performed By: #### C BC #### [facility] [address] [place] [address] Dr. Doreen Betancourt Basophils/100 WBC (Bld) 0.7 % Normal 0.2-2.0 [facility] Comment on above: Performed By: #### C BC #### [facility] [address] [place] [address] Dr. Doreen Betancourt EO # 0.1 103/ul Normal 0.0-0.7 [facility] Comment on above: Performed By: #### C BC #### [facility] [address] [place] [address] Dr. Doreen Betancourt Eosinophils/100 WBC (Bld) 2.0 % Normal 0.9-7.0 [facility] Comment on above: Performed By: #### C BC #### [facility] [address] [place] [address] Dr. Doreen Betancourt Erythrocyte distribution width (RBC) [Ratio] 13.9 % Normal 11.0-15.0 [facility] Comment on above: Performed By: #### C BC #### [facility] [address] [place] [address] Dr. Doreen Betancourt Hematocrit (Bld) [Volume fraction] 41.2 % Normal 36.0-48.0 [facility] Comment on above: Performed By: #### C BC #### [facility] [address] [place] [address] Dr. Doreen Betancourt Hemoglobin (Bld) [Mass/Vol] 13.2 g/dL Normal 12.0-16.0 [facility] Comment on above: Performed By: #### C BC #### [facility] [address] [place] [address] Dr. Doreen Betancourt IG # 0.01 10e3/ul Normal 0.00-0.03 [facility] Comment on above: Performed By: #### C BC #### [facility] [address] [place] [address] Dr. Doreen Betancourt IG % 0.2 % Normal 0.0-0.5 [facility] Comment on above: Performed By: #### C BC #### [facility] [address] [place] [address] Dr. Doreen Betancourt LYMPH # 1.9 103/ul Normal 1.2-3.8 [facility] Comment on above: Performed By: #### C BC #### [facility] [address] [place] [address] Dr. Doreen Betancourt Lymphocytes/100 WBC (Bld) 41.0 % Normal 20.5-60.0 [facility] Comment on above: Performed By: #### C BC #### [facility] [address] [place] [address] Dr. Doreen Betancourt MANUAL DIFF REQ NO Normal [facility] Comment on above: Performed By: #### C BC #### [facility] [address] [place] [address] Dr. Doreen Betancourt MCH (RBC) [Entitic mass] 29.3 pg Normal 26.7-34.0 [facility] Comment on above: Performed By: #### C BC #### [facility] [address] [place] [address] Dr. Doreen Betancourt MCHC (RBC) [Mass/Vol] 32.0 g/dL Normal 29.9-35.2 [facility] Comment on above: Performed By: #### C BC #### [facility] [address] [place] [address] Dr. Doreen Betancourt MCV (RBC) [Entitic vol] 91.6 fL Normal 81.0-99.0 [facility] Comment on above: Performed By: #### C BC #### [facility] [address] [place] [address] Dr. Doreen Betancourt MONO # 0.1 103/ul Critically low 0.3-0.8 [facility] Comment on above: Performed By: #### C BC #### [facility] [address] [place] [address] Dr. Doreen Betancourt Monocytes/100 WBC (Bld) 1.5 % Critically low 1.7-12.0 [facility] Comment on above: Performed By: #### C BC #### [facility] [address] [place] [address] Dr. Doreen Betancourt NEUT # 2.5 103/ul Normal 1.4-6.5 [facility] Comment on above: Performed By: #### C BC #### [facility] [address] [place] [address] Dr. Doreen Betancourt Neutrophils/100 WBC (Bld) 54.6 % Normal 43.0-75.0 [facility] Comment on above: Performed By: #### C BC #### [facility] [address] [place] [address] Dr. Doreen Betancourt Platelet mean volume (Bld) [Entitic vol] 10.5 fL Normal 9.5-13.5 [facility] Comment on above: Performed By: #### C BC #### [facility] [address] [place] [address] Dr. Doreen Betancourt PLT 270 103/ul Normal 150-450 [facility] Comment on above: Performed By: #### C BC #### [facility] [address] [place] [address] Dr. Doreen Betancourt RBC 4.50 106/ul Normal 4.20-5.40 [facility] Comment on above: Performed By: #### C BC #### [facility] [address] [place] [address] Dr. Doreen Betancourt WBC 4.6 103/ul Normal 4.0-11.0 [facility] Comment on above: Performed By: #### C BC #### [facility] [address] [place] [address] Dr. Doreen Betancourt PROF 14(COMP METB)on 022 Albumin [Mass/Vol] 3.9 g/dL Normal 3.4-5.0 [facility] Comment on above: Performed By: #### C BC #### [facility] [address] [place] [address] Dr. Doreen Betancourt Albumin/Globulin [Mass ratio] 1.0 {ratio} Normal [facility] Comment on above: Performed By: #### C BC #### [facility] [address] [place] [address] Dr. Doreen Betancourt ALP [Catalytic activity/Vol] 83 U/L Normal 46-116 [facility] Comment on above: Performed By: #### C BC #### [facility] [address] [place] [address] Dr. Doreen Betancourt ALT [Catalytic activity/Vol] 22 U/L Normal 14-59 [facility] Comment on above: Performed By: #### C BC #### [facility] [address] [place] [address] Dr. Doreen Betancourt Anion gap [Moles/Vol] 12.6 mmol/L Normal [facility] Comment on above: Performed By: #### C BC #### [facility] [address] [place] [address] Dr. Doreen Betancourt AST [Catalytic activity/Vol] 16 U/L Normal 15-37 [facility] Comment on above: Performed By: #### C BC #### [facility] [address] [address] [address] Doreen Betancourt Bilirubin [Mass/Vol] 0.6 mg/dL Normal 0.2-1.0 [facility] Comment on above: Performed By: #### C BC #### [facility] [address] [address] [address] Doreen Betancourt Calcium [Mass/Vol] 9.4 mg/dL Normal 8.5-10.1 [facility] Comment on above: Performed By: #### C BC #### [facility] [address] [place] [address] Dr. Doreen Betancourt Chloride [Moles/Vol] 101 mmol/L Normal 98-107 [facility] Comment on above: Performed By: #### C BC #### [facility] [address] [place] [address] Dr. Doreen Betancourt CO2 [Moles/Vol] 25.9 mmol/L Normal 21.0-32.0 [facility] Comment on above: Performed By: #### C BC #### [facility] [address] [place] [address] Dr. Doreen Betancourt Creatinine [Mass/Vol] 0.64 mg/dL Normal 0.55-1.02 [facility] Comment on above: Performed By: #### C BC #### [facility] [address] [place] [address] Dr. Doreen Betancourt EGFR-AF BERMUDIAN >60 Normal >=60 [facility] Comment on above: Performed By: #### C BC #### [facility] [address] [place] [address] Dr. Doreen Betancourt EGFR-NON AF BERMUDIAN >60 Normal >=60 [facility] Comment on above: Performed By: #### C BC #### [facility] [address] [place] [address] Dr. Doreen Betancourt Globulin (S) [Mass/Vol] 3.9 g/dL Normal [facility] Comment on above: Performed By: #### C BC #### [facility] [address] [address] [address] Doreen Betancourt Glucose [Mass/Vol] 135 mg/dL Critically high 74-106 [facility] Comment on above: Performed By: #### C BC #### [facility] [address] [address] [address] Doreen Betancourt Potassium [Moles/Vol] 4.5 mmol/L Normal 3.5-5.1 [facility] Comment on above: Performed By: #### C BC #### [facility] [address] [address] [address] Doreen Betancourt Protein [Mass/Vol] 7.8 g/dL Normal 6.4-8.2 [facility] Comment on above: Performed By: #### C BC #### [facility] [address] [place] [address] Dr. Doreen Betancourt Sodium [Moles/Vol] 135 mmol/L Critically low 136-145 [facility] Comment on above: Performed By: #### C BC #### [facility] [address] [place] [address] Dr. Doreen Betancourt Urea nitrogen [Mass/Vol] 15.0 mg/dL Normal 7.0-18.0 [facility] Comment on above: Performed By: #### C BC #### [facility] [address] [place] [address] Dr. Doreen Betancourt Urea nitrogen/Creatinine [Mass ratio] 23.4 mg/mg Normal [facility] Comment on above: Performed By: #### C BC #### [facility] [address] [place] [address] Dr. Doreen Betancourt CBC AUTO DIFFon 05-22-2022 BASO # 0.0 103/ul Normal 0.0-0.1 [facility] Comment on above: Performed By: #### C VDTBH #### [facility] [address] [address] [address] Doreen Betancourt Basophils/100 WBC (Bld) 0.8 % Normal 0.2-2.0 [facility] Comment on above: Performed By: #### C VDTBH #### [facility] [address] [place] [address] Dr. Doreen Betancourt EO # 0.1 103/ul Normal 0.0-0.7 [facility] Comment on above: Performed By: #### C VDTBH #### [facility] [address] [place] [address] Dr. Doreen Betancourt Eosinophils/100 WBC (Bld) 2.7 % Normal 0.9-7.0 [facility] Comment on above: Performed By: #### C VDTBH #### [facility] [address] [place] [address] Dr. Doreen Betancourt Erythrocyte distribution width (RBC) [Ratio] 13.9 % Normal 11.0-15.0 [facility] Comment on above: Performed By: #### C VDTBH #### [facility] [address] [place] [address] Dr. Doreen Betancourt Hematocrit (Bld) [Volume fraction] 40.9 % Normal 36.0-48.0 [facility] Comment on above: Performed By: #### C VDTBH #### [facility] [address] [place] [address] Dr. Doreen Betancourt Hemoglobin (Bld) [Mass/Vol] 13.1 g/dL Normal 12.0-16.0 [facility] Comment on above: Performed By: #### C VDTBH #### [facility] [address] [place] [address] Dr. Doreen Betancourt IG # 0.01 10e3/ul Normal 0.00-0.03 [facility] Comment on above: Performed By: #### C VDTBH #### [facility] [address] [place] [address] Dr. Doreen Betancourt IG % 0.2 % Normal 0.0-0.5 [facility] Comment on above: Performed By: #### C VDTBH #### [facility] [address] [place] [address] Dr. Doreen Betancourt LYMPH # 1.9 103/ul Normal 1.2-3.8 [facility] Comment on above: Performed By: #### C VDTBH #### [facility] [address] [place] [address] Dr. Doreen Betancourt Lymphocytes/100 WBC (Bld) 39.1 % Normal 20.5-60.0 [facility] Comment on above: Performed By: #### C VDTBH #### [facility] [address] [place] [address] Dr. Doreen Betancourt MANUAL DIFF REQ NO Normal [facility] Comment on above: Performed By: #### C VDTBH #### [facility] [address] [place] [address] Dr. Doreen Betancourt MCH (RBC) [Entitic mass] 29.6 pg Normal 26.7-34.0 [facility] Comment on above: Performed By: #### C VDTBH #### [facility] [address] [place] [address] Dr. Doreen Betancourt MCHC (RBC) [Mass/Vol] 32.0 g/dL Normal 29.9-35.2 [facility] Comment on above: Performed By: #### C VDTBH #### [facility] [address] [place] [address] Dr. Doreen Betancourt MCV (RBC) [Entitic vol] 92.3 fL Normal 81.0-99.0 [facility] Comment on above: Performed By: #### C VDTBH #### [facility] [address] [place] [address] Dr. Doreen Betancourt MONO # 0.4 103/ul Normal 0.3-0.8 [facility] Comment on above: Performed By: #### C VDTBH #### [facility] [address] [place] [address] Dr. Doreen Betancourt Monocytes/100 WBC (Bld) 7.6 % Normal 1.7-12.0 [facility] Comment on above: Performed By: #### C VDTBH #### [facility] [address] [place] [address] Dr. Doreen Betancourt NEUT # 2.4 103/ul Normal 1.4-6.5 [facility] Comment on above: Performed By: #### C VDTBH #### [facility] [address] [address] [address] Doreen Betancourt Neutrophils/100 WBC (Bld) 49.6 % Normal 43.0-75.0 [facility] Comment on above: Performed By: #### C VDTBH #### [facility] [address] [address] [address] Doreen Betancourt Platelet mean volume (Bld) [Entitic vol] 10.3 fL Normal 9.5-13.5 [facility] Comment on above: Performed By: #### C VDTBH #### [facility] [address] [place] [address] Dr. Doreen Betancourt PLT 274 103/ul Normal 150-450 [facility] Comment on above: Performed By: #### C VDTBH #### [facility] [address] [place] [address] Dr. Doreen Betancourt RBC 4.43 106/ul Normal 4.20-5.40 [facility] Comment on above: Performed By: #### C VDTBH #### [facility] [address] [place] [address] Dr. Doreen Betancourt WBC 4.9 103/ul Normal 4.0-11.0 [facility] Comment on above: Performed By: #### C VDTBH #### [facility] [address] [place] [address] Dr. Doreen Betancourt MAGNESIUMon 05-22-2022 Magnesium [Mass/Vol] 2.1 mg/dL Normal 1.8-2.4 [facility] Comment on above: Performed By: #### M G, CMP #### [facility] [address] [place] [address] Dr. Doreen Betancourt PREG HCG QUALon 05-22-2022 , QUAL Negative Normal NEGATIVE [facility] Comment on above: Performed By: #### M G, CMP #### [facility] [address] [place] [address] Dr. Doreen Betancourt PROF 14(COMP METB)on 11-16-2 022 Albumin [Mass/Vol] 3.9 g/dL Normal 3.4-5.0 [facility] Comment on above: Performed By: #### M G, CMP #### [facility] [address] [place] [address] Dr. Doreen Betancourt Albumin/Globulin [Mass ratio] 1.1 {ratio} Normal [facility] Comment on above: Performed By: #### M G, CMP #### [facility] [address] [place] [address] Dr. Doreen Betancourt ALP [Catalytic activity/Vol] 81 U/L Normal 46-116 [facility] Comment on above: Performed By: #### M G, CMP #### [facility] [address] [place] [address] Dr. Doreen Betancourt ALT [Catalytic activity/Vol] 27 U/L Normal 14-59 [facility] Comment on above: Performed By: #### M G, CMP #### [facility] [address] [place] [address] Dr. Doreen Betancourt Anion gap [Moles/Vol] 8.6 mmol/L Normal [facility] Comment on above: Performed By: #### Gay G, CMP #### [facility] [address] [place] [address] Dr. Doreen Betancourt AST [Catalytic activity/Vol] 23 U/L Normal 15-37 [facility] Comment on above: Performed By: #### Gay G, CMP #### [facility] [address] [place] [address] Dr. Doreen Betancourt Bilirubin [Mass/Vol] 0.3 mg/dL Normal 0.2-1.0 [facility] Comment on above: Performed By: #### M G, CMP #### [facility] [address] [place] [address] Dr. Doreen Betancourt Calcium [Mass/Vol] 9.5 mg/dL Normal 8.5-10.1 [facility] Comment on above: Performed By: #### M G, CMP #### [facility] [address] [place] [address] Dr. Doreen Betancourt Chloride [Moles/Vol] 104 mmol/L Normal 98-107 [facility] Comment on above: Performed By: #### M G, CMP #### [facility] [address] [place] [address] Dr. Doreen Betancourt CO2 [Moles/Vol] 31.8 mmol/L Normal 21.0-32.0 [facility] Comment on above: Performed By: #### M G, CMP #### [facility] [address] [place] [address] Dr. Doreen Betancourt Creatinine [Mass/Vol] 0.59 mg/dL Normal 0.55-1.02 [facility] Comment on above: Performed By: #### M G, CMP #### [facility] [address] [place] [address] Dr. Doreen Betancourt EGFR-AF BERMUDIAN >60 Normal >=60 [facility] Comment on above: Performed By: #### M G, CMP #### [facility] [address] [place] [address] Dr. Doreen Betancourt EGFR-NON AF BERMUDIAN >60 Normal >=60 [facility] Comment on above: Performed By: #### M G, CMP #### [facility] [address] [place] [address] Dr. Doreen Betancourt Globulin (S) [Mass/Vol] 3.7 g/dL Normal [facility] Comment on above: Performed By: #### M G, CMP #### [facility] [address] [place] [address] Dr. Doreen Betancourt Glucose [Mass/Vol] 110 mg/dL Critically high 74-106 [facility] Comment on above: Performed By: #### M G, CMP #### [facility] [address] [place] [address] Dr. Doreen Betancourt Potassium [Moles/Vol] 4.4 mmol/L Normal 3.5-5.1 [facility] Comment on above: Performed By: #### M G, CMP #### [facility] [address] [place] [address] Dr. Doreen Betancourt Protein [Mass/Vol] 7.6 g/dL Normal 6.4-8.2 [facility] Comment on above: Performed By: #### M G, CMP #### [facility] [address] [address] [address] Doreen Betancourt Sodium [Moles/Vol] 140 mmol/L Normal 136-145 [facility] Comment on above: Performed By: #### M G, CMP #### [facility] [address] [address] [address] Doreen Betancourt Urea nitrogen [Mass/Vol] 17.0 mg/dL Normal 7.0-18.0 [facility] Comment on above: Performed By: #### M G, CMP #### [facility] [address] [address] [address] Doreen Betancourt Urea nitrogen/Creatinine [Mass ratio] 28.8 mg/mg Normal [facility] Comment on above: Performed By: #### M G, CMP #### [facility] [address] [address] [address] Doreen Betancourt XR CHEST 1 Von [...] NEDA COULTER Date: 2022-05-22 11:22 Normal [facility] Covid-19 PCR (CVDTBH)on 05-07 SARS-CoV-2 (COVID-19) RNA MARIVEL+probe Ql (Unsp spec) Not detected Normal NOT DETECTED [facility] Comment on above: Result Comment: This test is not yet approved or cleared by the [place] FDA. When there are no FDA-approved or cleared tests available, and other criteria are met, FDA can make tests available under an emergency access mechanism called an Emergency Use Authorization (EUA). The EUA for this test is supported by the Account Executive Key Accounts of Health and Human Service's (HHS's) declaration [...] consistent with SARS-CoV-2. Performed By: #### C [facility] #### [facility] [address] [place] [address] Dr. Doreen Betancourt CBC AUTO DIFFon 04-13-2022 BASO # 0.0 103/ul Normal 0.0-0.1 [facility] Comment on above: Performed By: #### M G, CMP #### [facility] [address] [place] [address] Dr. Doreen Betancourt Basophils/100 WBC (Bld) 0.4 % Normal 0.2-2.0 [facility] Comment on above: Performed By: #### M G, CMP #### [facility] [address] [place] [address] Dr. Doreen Betancourt EO # 0.1 103/ul Normal 0.0-0.7 [facility] Comment on above: Performed By: #### M G, CMP #### [facility] [address] [place] [address] Dr. Doreen Betancourt Eosinophils/100 WBC (Bld) 0.7 % Critically low 0.9-7.0 [facility] Comment on above: Performed By: #### M G, CMP #### [facility] [address] [place] [address] Dr. Doreen Betancourt Erythrocyte distribution width (RBC) [Ratio] 12.9 % Normal 11.0-15.0 [facility] Comment on above: Performed By: #### M G, CMP #### [facility] [address] [place] [address] Dr. Doreen Betancourt Hematocrit (Bld) [Volume fraction] 32.5 % Critically low 36.0-48.0 [facility] Comment on above: Performed By: #### M G, CMP #### [facility] [address] [place] [address] Dr. Doreen Betancourt Hemoglobin (Bld) [Mass/Vol] 10.6 g/dL Critically low 12.0-16.0 [facility] [facility] Comment on above: Performed By: #### M G, CMP #### [facility] [address] [place] [address] Dr. Doreen Betancourt IG # 0.02 10e3/ul Normal 0.00-0.03 [facility] Comment on above: Performed By: #### M G, CMP #### [facility] [address] [place] [address] Dr. Doreen Betancourt IG % 0.3 % Normal 0.0-0.5 [facility] Comment on above: Performed By: #### M G, CMP #### [facility] [address] [place] [address] Dr. Doreen Betancourt LYMPH # 2.2 103/ul Normal 1.2-3.8 [facility] Comment on above: Performed By: #### M G, CMP #### [facility] [address] [place] [address] Dr. Doreen Betancourt Lymphocytes/100 WBC (Bld) 32.0 % Normal 20.5-60.0 [facility] Comment on above: Performed By: #### M G, CMP #### [facility] [address] [place] [address] Dr. Doreen Betancourt MANUAL DIFF REQ NO Normal [facility] Comment on above: Performed By: #### M G, CMP #### [facility] [address] [place] [address] Dr. Doreen Betancourt MCH (RBC) [Entitic mass] 30.5 pg Normal 26.7-34.0 [facility] Comment on above: Performed By: #### M G, CMP #### [facility] [address] [address] [address] Doreen Betancourt MCHC (RBC) [Mass/Vol] 32.6 g/dL Normal 29.9-35.2 [facility] Comment on above: Performed By: #### M G, CMP #### [facility] [address] [place] [address] Dr. Doreen Betancourt MCV (RBC) [Entitic vol] 93.4 fL Normal 81.0-99.0 [facility] Comment on above: Performed By: #### M G, CMP #### [facility] [address] [place] [address] Dr. Doreen Betancourt MONO # 0.6 103/ul Normal 0.3-0.8 [facility] Comment on above: Performed By: #### M G, CMP #### [facility] [address] [place] [address] Dr. Doreen Betancourt Monocytes/100 WBC (Bld) 8.3 % Normal 1.7-12.0 [facility] Comment on above: Performed By: #### M G, CMP #### [facility] [address] [place] [address] Dr. Doreen Betancourt NEUT # 3.9 103/ul Normal 1.4-6.5 [facility] Comment on above: Performed By: #### M G, CMP #### [facility] [address] [place] [address] Dr. Doreen Betancourt Neutrophils/100 WBC (Bld) 58.3 % Normal 43.0-75.0 [facility] Comment on above: Performed By: #### M G, CMP #### [facility] [address] [place] [address] Dr. Doreen Betancourt Platelet mean volume (Bld) [Entitic vol] 10.4 fL Normal 9.5-13.5 [facility] Comment on above: Performed By: #### M G, CMP #### [facility] [address] [address] [address] Doreen Betancourt PLT 213 103/ul Normal 150-450 [facility] Comment on above: Performed By: #### M G, CMP #### [facility] [address] [place] [address] Dr. Doreen Betancourt RBC 3.48 106/ul Critically low 4.20-5.40 [facility] Comment on above: Performed By: #### M G, CMP #### [facility] [address] [place] [address] Dr. Doreen Betancourt WBC 6.8 103/ul Normal 4.0-11.0 [facility] Comment on above: Performed By: #### M G, CMP #### [facility] [address] [place] [address] Dr. Doreen Betancourt PROF CHEM 8 (BAS METB)on Anion gap [Moles/Vol] 7.3 mmol/L Normal [facility] Comment on above: Performed By: #### M G, CMP #### [facility] [address] [place] [address] Dr. Doreen Betancourt Calcium [Mass/Vol] 8.8 mg/dL Normal 8.5-10.1 [facility] Comment on above: Performed By: #### M G, CMP #### [facility] [address] [place] [address] Dr. Doreen Betancourt Chloride [Moles/Vol] 105 mmol/L Normal 98-107 [facility] Comment on above: Performed By: #### M G, CMP #### [facility] [address] [place] [address] Dr. Doreen Betancourt CO2 [Moles/Vol] 27.8 mmol/L Normal 21.0-32.0 [facility] Comment on above: Performed By: #### M G, CMP #### [facility] [address] [place] [address] Dr. Doreen Betancourt Creatinine [Mass/Vol] 0.57 mg/dL Normal 0.55-1.02 [facility] Comment on above: Performed By: #### M G, CMP #### [facility] [address] [place] [address] Dr. Doreen Betancourt EGFR-AF BERMUDIAN >60 Normal >=60 [facility] Comment on above: Performed By: #### M G, CMP #### [facility] [address] [address] [address] Doreen Betancourt EGFR-NON AF BERMUDIAN >60 Normal >=60 [facility] Comment on above: Performed By: #### M G, CMP #### [facility] [address] [address] [address] Doreen Betancourt Glucose [Mass/Vol] 93 mg/dL Normal 74-106 [facility] Comment on above: Performed By: #### M G, CMP #### [facility] [address] [address] [address] Doreen Betancourt Potassium [Moles/Vol] 4.1 mmol/L Normal 3.5-5.1 [facility] Comment on above: Performed By: #### M G, CMP #### [facility] [address] [address] [address] Doreen Betancourt Sodium [Moles/Vol] 136 mmol/L Normal 136-145 [facility] Comment on above: Performed By: #### M G, CMP #### [facility] [address] [address] [address] Doreen Betancourt Urea nitrogen [Mass/Vol] 5.0 mg/dL Critically low 7.0-18.0 [facility] Comment on above: Performed By: #### M G, CMP #### [facility] [address] [address] [address] Doreen Betancourt Urea nitrogen/Creatinine [Mass ratio] 8.8 mg/mg Normal [facility] Comment on above: Performed By: #### M G, CMP #### [facility] [address] [address] [address] Doreen Betancourt PROF CHEM 8 (BAS METB)on Anion gap [Moles/Vol] 9.6 mmol/L Normal [facility] Comment on above: Performed By: #### C VDTBH #### [facility] [address] [address] [address] Doreen Betancourt Calcium [Mass/Vol] 8.8 mg/dL Normal 8.5-10.1 [facility] Comment on above: Performed By: #### C VDTBH #### [facility] [address] [place] [address] Dr. Doreen Betancourt Chloride [Moles/Vol] 101 mmol/L Normal 98-107 [facility] Comment on above: Performed By: #### C VDTBH #### [facility] [address] [place] [address] Dr. Doreen Betancourt CO2 [Moles/Vol] 26.8 mmol/L Normal 21.0-32.0 [facility] Comment on above: Performed By: #### C VDTBH #### [facility] [address] [place] [address] Dr. Doreen Betancourt Creatinine [Mass/Vol] 0.53 mg/dL Critically low 0.55-1.02 [facility] Comment on above: Performed By: #### C VDTBH #### [facility] [address] [place] [address] Dr. Doreen Betancourt EGFR-AF BERMUDIAN >60 Normal >=60 [facility] Comment on above: Performed By: #### C VDTBH #### [facility] [address] [place] [address] Dr. Doreen Betancourt EGFR-NON AF BERMUDIAN >60 Normal >=60 [facility] Comment on above: Performed By: #### C VDTBH #### [facility] [address] [place] [address] Dr. Doreen Betancourt Glucose [Mass/Vol] 122 mg/dL Critically high 74-106 [facility] Comment on above: Performed By: #### C VDTBH #### [facility] [address] [place] [address] Dr. Doreen Betancourt Potassium [Moles/Vol] 3.4 mmol/L Critically low 3.5-5.1 [facility] Comment on above: Performed By: #### C VDTBH #### [facility] [address] [place] [address] Dr. Doreen Betancourt Sodium [Moles/Vol] 134 mmol/L Critically low 136-145 [facility] Comment on above: Performed By: #### C VDTBH #### [facility] [address] [place] [address] Dr. Doreen Betancourt Urea nitrogen [Mass/Vol] 6.0 mg/dL Critically low 7.0-18.0 [facility] Comment on above: Performed By: #### C VDTBH #### [facility] [address] [place] [address] Dr. Doreen Betancourt Urea nitrogen/Creatinine [Mass ratio] 11.3 mg/mg Normal [facility] Comment on above: Performed By: #### C VDTBH #### [facility] [address] [place] [address] Dr. Doreen Betancourt CBC AUTO DIFFon 04-11-2022 BASO # 0.0 103/ul Normal 0.0-0.1 [facility] Comment on above: Performed By: #### Gay Martino, CMP #### [facility] [address] [place] [address] Dr. Doreen Betancourt Basophils/100 WBC (Bld) 0.1 % Critically low 0.2-2.0 [facility] Comment on above: Performed By: #### Gay Martino, CMP #### [facility] [address] [place] [address] Dr. Doreen Betancourt EO # 0.0 103/ul Normal 0.0-0.7 [facility] Comment on above: Performed By: #### Gay Martino, CMP #### [facility] [address] [place] [address] Dr. Doreen Betancourt Eosinophils/100 WBC (Bld) 0.0 % Critically low 0.9-7.0 [facility] Comment on above: Performed By: #### Gay Martino, CMP #### [facility] [address] [place] [address] Dr. Droeen Betancourt Erythrocyte distribution width (RBC) [Ratio] 13.0 % Normal 11.0-15.0 [facility] Comment on above: Performed By: #### Gay Martino, CMP #### [facility] [address] [place] [address] Dr. Doreen Betancourt Hematocrit (Bld) [Volume fraction] 35.6 % Critically low 36.0-48.0 [facility] Comment on above: Performed By: #### M G, CMP #### [facility] [address] [place] [address] Dr. Doreen Betancourt Hemoglobin (Bld) [Mass/Vol] 11.5 g/dL Critically low 12.0-16.0 [facility] Comment on above: Performed By: #### M G, CMP #### [facility] [address] [place] [address] Dr. Doreen Betancourt IG # 0.02 10e3/ul Normal 0.00-0.03 [facility] Comment on above: Performed By: #### M G, CMP #### [facility] [address] [place] [address] Dr. Doreen Betancourt IG % 0.2 % Normal 0.0-0.5 [facility] Comment on above: Performed By: #### M G, CMP #### [facility] [address] [place] [address] Dr. Doreen Betancourt LYMPH # 1.3 103/ul Normal 1.2-3.8 [facility] Comment on above: Performed By: #### M G, CMP #### [facility] [address] [place] [address] Dr. Doreen Betancourt Lymphocytes/100 WBC (Bld) 12.4 % Critically low 20.5-60.0 [facility] Comment on above: Performed By: #### M G, CMP #### [facility] [address] [place] [address] Dr. Doreen Betancourt MANUAL DIFF REQ NO Normal [facility] Comment on above: Performed By: #### M G, CMP #### [facility] [address] [place] [address] Dr. Doreen Betancourt MCH (RBC) [Entitic mass] 29.9 pg Normal 26.7-34.0 [facility] Comment on above: Performed By: #### M G, CMP #### [facility] [address] [place] [address] Dr. Doreen Betancourt MCHC (RBC) [Mass/Vol] 32.3 g/dL Normal 29.9-35.2 [facility] Comment on above: Performed By: #### M G, CMP #### [facility] [address] [place] [address] Dr. Doreen Betancourt MCV (RBC) [Entitic vol] 92.7 fL Normal 81.0-99.0 [facility] Comment on above: Performed By: #### M G, CMP #### [facility] [address] [place] [address] Dr. Doreen Betancourt MONO # 0.9 103/ul Critically high 0.3-0.8 [facility] Comment on above: Performed By: #### M G, CMP #### [facility] [address] [place] [address] Dr. Doreen Betancourt Monocytes/100 WBC (Bld) 8.8 % Normal 1.7-12.0 [facility] Comment on above: Performed By: #### M G, CMP #### [facility] [address] [place] [address] Dr. Doreen Betancourt NEUT # 8.3 103/ul Critically high 1.4-6.5 [facility] Comment on above: Performed By: #### M G, CMP #### [facility] [address] [place] [address] Dr. Doreen Betancourt Neutrophils/100 WBC (Bld) 78.5 % Critically high 43.0-75.0 [facility] Comment on above: Performed By: #### M G, CMP #### [facility] [address] [place] [address] Dr. Doreen Betancourt Platelet mean volume (Bld) [Entitic vol] 10.6 fL Normal 9.5-13.5 [facility] Comment on above: Performed By: #### M G, CMP #### [facility] [address] [place] [address] Dr. Doreen Betancourt PLT 218 103/ul Normal 150-450 [facility] Comment on above: Performed By: #### M G, CMP #### [facility] [address] [place] [address] Dr. Doreen Betancourt RBC 3.84 106/ul Critically low 4.20-5.40 [facility] Comment on above: Performed By: #### M G, CMP #### [facility] [address] [place] [address] Dr. Doreen Betancourt WBC 10.6 103/ul Normal 4.0-11.0 [facility] Comment on above: Performed By: #### M G, CMP #### [facility] [address] [place] [address] Dr. Doreen Betancourt PROF CHEM 8 (BAS METB)on Anion gap [Moles/Vol] 9.4 mmol/L Normal [facility] Comment on above: Performed By: #### M G, CMP #### [facility] [address] [place] [address] Dr. Doreen Betancourt Calcium [Mass/Vol] 8.4 mg/dL Critically low 8.5-10.1 [facility] Comment on above: Performed By: #### M G, CMP #### [facility] [address] [place] [address] Dr. Doreen Betancourt Chloride [Moles/Vol] 105 mmol/L Normal 98-107 [facility] Comment on above: Performed By: #### M G, CMP #### [facility] [address] [place] [address] Dr. Doreen Betancourt CO2 [Moles/Vol] 25.1 mmol/L Normal 21.0-32.0 [facility] Comment on above: Performed By: #### M G, CMP #### [facility] [address] [place] [address] Dr. Doreen Betancourt Creatinine [Mass/Vol] 0.50 mg/dL Critically low 0.55-1.02 [facility] Comment on above: Performed By: #### M G, CMP #### [facility] [address] [place] [address] Dr. Doreen Betancourt EGFR-AF BERMUDIAN >60 Normal >=60 [facility] Comment on above: Performed By: #### M G, CMP #### [facility] [address] [address] [address] Doreen Betancourt EGFR-NON AF BERMUDIAN >60 Normal >=60 [facility] Comment on above: Performed By: #### M G, CMP #### [facility] [address] [address] [address] Doreen Betancourt Glucose [Mass/Vol] 114 mg/dL Critically high 74-106 [facility] Comment on above: Performed By: #### M G, CMP #### [facility] [address] [address] [address] Doreen Betancourt Potassium [Moles/Vol] 3.5 mmol/L Normal 3.5-5.1 [facility] Comment on above: Performed By: #### M G, CMP #### [facility] [address] [place] [address] Dr. Doreen Betancourt Sodium [Moles/Vol] 136 mmol/L Normal 136-145 [facility] Comment on above: Performed By: #### M G, CMP #### [facility] [address] [address] [address] Doreen Betancourt Urea nitrogen [Mass/Vol] 6.0 mg/dL Critically low 7.0-18.0 [facility] Comment on above: Performed By: #### M G, CMP #### [facility] [address] [place] [address] Dr. Doreen Betancourt Urea nitrogen/Creatinine [Mass ratio] 12.0 mg/mg Normal [facility] Comment on above: Performed By: #### M G, CMP #### [facility] [address] [address] [address] Doreen Betancourt CBC AUTO DIFFon 04-08-2022 BASO # 0.1 103/ul Normal 0.0-0.1 [facility] Comment on above: Performed By: #### M G, CMP #### [facility] [address] [place] [address] Dr. Doreen Betancourt Basophils/100 WBC (Bld) 0.8 % Normal 0.2-2.0 [facility] Comment on above: Performed By: #### M G, CMP #### [facility] [address] [place] [address] Dr. Doreen Betancourt EO # 0.1 103/ul Normal 0.0-0.7 [facility] Comment on above: Performed By: #### M G, CMP #### [facility] [address] [place] [address] Dr. Doreen Betancourt Eosinophils/100 WBC (Bld) 1.8 % Normal 0.9-7.0 [facility] Comment on above: Performed By: #### M G, CMP #### [facility] [address] [place] [address] Dr. Doreen Betancourt Erythrocyte distribution width (RBC) [Ratio] 13.0 % Normal 11.0-15.0 [facility] Comment on above: Performed By: #### M G, CMP #### [facility] [address] [place] [address] Dr. Doreen Betancourt Hematocrit (Bld) [Volume fraction] 42.1 % Normal 36.0-48.0 [facility] Comment on above: Performed By: #### M G, CMP #### [facility] [address] [place] [address] Dr. Doreen Betancourt Hemoglobin (Bld) [Mass/Vol] 13.4 g/dL Normal 12.0-16.0 [facility] Comment on above: Performed By: #### M G, CMP #### [facility] [address] [place] [address] Dr. Doreen Betancourt IG # 0.02 10e3/ul Normal 0.00-0.03 [facility] Comment on above: Performed By: #### M G, CMP #### [facility] [address] [place] [address] Dr. Doreen Betancourt IG % 0.3 % Normal 0.0-0.5 [facility] Comment on above: Performed By: #### M G, CMP #### [facility] [address] [place] [address] Dr. oDreen Betancourt LYMPH # 2.1 103/ul Normal 1.2-3.8 [facility] Comment on above: Performed By: #### M G, CMP #### [facility] [address] [place] [address] Dr. Doreen Betancourt Lymphocytes/100 WBC (Bld) 31.6 % Normal 20.5-60.0 [facility] Comment on above: Performed By: #### M G, CMP #### [facility] [address] [place] [address] Dr. Doreen Betancourt MANUAL DIFF REQ NO Normal [facility] Comment on above: Performed By: #### M G, CMP #### [facility] [address] [place] [address] Dr. Doreen Betancourt MCH (RBC) [Entitic mass] 30.2 pg Normal 26.7-34.0 [facility] Comment on above: Performed By: #### M G, CMP #### [facility] [address] [place] [address] Dr. Doreen Betancourt MCHC (RBC) [Mass/Vol] 31.8 g/dL Normal 29.9-35.2 [facility] Comment on above: Performed By: #### M G, CMP #### [facility] [address] [place] [address] Dr. Doreen Betancourt MCV (RBC) [Entitic vol] 95.0 fL Normal 81.0-99.0 [facility] Comment on above: Performed By: #### M G, CMP #### [facility] [address] [place] [address] Dr. Doreen Betancourt MONO # 0.4 103/ul Normal 0.3-0.8 [facility] Comment on above: Performed By: #### M G, CMP #### [facility] [address] [place] [address] Dr. Doreen Betancourt Monocytes/100 WBC (Bld) 6.2 % Normal 1.7-12.0 [facility] Comment on above: Performed By: #### M G, CMP #### [facility] [address] [place] [address] Dr. Doreen Betancourt NEUT # 3.9 103/ul Normal 1.4-6.5 [facility] Comment on above: Performed By: #### M G, CMP #### [facility] [address] [place] [address] Dr. Doreen Betancourt Neutrophils/100 WBC (Bld) 59.3 % Normal 43.0-75.0 [facility] Comment on above: Performed By: #### M G, CMP #### [facility] [address] [place] [address] Dr. Doreen Betancourt Platelet mean volume (Bld) [Entitic vol] 10.2 fL Normal 9.5-13.5 [facility] Comment on above: Performed By: #### M G, CMP #### [facility] [address] [place] [address] Dr. Doreen Betancourt PLT 276 103/ul Normal 150-450 [facility] Comment on above: Performed By: #### M G, CMP #### [facility] [address] [place] [address] Dr. Doreen Betancourt RBC 4.43 106/ul Normal 4.20-5.40 [facility] Comment on above: Performed By: #### M G, CMP #### [facility] [address] [place] [address] Dr. Doreen Betancourt WBC 6.6 103/ul Normal 4.0-11.0 [facility] Comment on above: Performed By: #### M G, CMP #### [facility] [address] [place] [address] Dr. Doreen Betancourt [facility]on SARS-CoV-2 (COVID-19) RNA MARIVEL+probe Ql (Unsp spec) Not detected Normal NOT DETECTED [facility] Comment on above: Result Comment: When [...] for this test is supported by the [place] of [employer] and Human Service's declaration that [...] longer be used). Performed By: #### M G, CMP #### [facility] [address] [place] [address] Dr. Doreen Betancourt TYPE AND SCREENon 04-08-2022 TYPE AND SCREEN Negative Normal [facility] Comment on above: Performed By: #### Gay G, CMP #### [facility] [address] [place] [address] Dr. Doreen Betancourt CEAon 2022 CEA 4.9 ng/mL Critically high 0.0-4.7 [facility] Comment on above: Result Comment: Nons mokers <3.9 Smokers <5.6 . [employer] Electrochemiluminescence Immunoassay (ECLIA) . Values obtained with different assay methods or kits cannot be used interchangeably. Results cannot be interpreted as absolute evidence of the presence or absence of malignant disease. Performed By: #### Gay Martino, CMP #### [facility] [address] [place] [address] Dr. Doreen Betancourt PROF 14(COMP METB)on 022 Albumin [Mass/Vol] 3.6 g/dL Normal 3.4-5.0 [facility] Comment on above: Performed By: #### Gay G, CMP #### [facility] [address] [place] [address] Dr. Doreen Betancourt Albumin/Globulin [Mass ratio] 1.1 {ratio} Normal [facility] Comment on above: Performed By: #### Gay G, CMP #### [facility] [address] [place] [address] Dr. Doreen Betancourt ALP [Catalytic activity/Vol] 76 U/L Normal 46-116 [facility] Comment on above: Performed By: #### Gay G, CMP #### [facility] [address] [address] [address] Doreen Betancourt ALT [Catalytic activity/Vol] 18 U/L Normal 14-59 [facility] Comment on above: Performed By: #### M G, CMP #### [facility] [address] [address] [address] Doreen Betancourt Anion gap [Moles/Vol] 12.7 mmol/L Normal [facility] Comment on above: Performed By: #### M G, CMP #### [facility] [address] [address] [address] Doreen Betancourt AST [Catalytic activity/Vol] 15 U/L Normal 15-37 [facility] Comment on above: Performed By: #### M G, CMP #### [facility] [address] [address] [address] Doreen Betancourt Bilirubin [Mass/Vol] 0.3 mg/dL Normal 0.2-1.0 [facility] Comment on above: Performed By: #### Gay G, CMP #### [facility] [address] [address] [address] Doreen Betancourt Calcium [Mass/Vol] 8.8 mg/dL Normal 8.5-10.1 [facility] Comment on above: Performed By: #### M G, CMP #### [facility] [address] [address] [address] Doreen Betancourt Chloride [Moles/Vol] 104 mmol/L Normal 98-107 [facility] Comment on above: Performed By: #### M G, CMP #### [facility] [address] [address] [address] Doreen Betancourt CO2 [Moles/Vol] 25.5 mmol/L Normal 21.0-32.0 [facility] Comment on above: Performed By: #### M G, CMP #### [facility] [address] [address] [address] Doreen Betancourt Creatinine [Mass/Vol] 0.61 mg/dL Normal 0.55-1.02 [facility] Comment on above: Performed By: #### M G, CMP #### [facility] [address] [address] [address] Doreen Betancourt EGFR-AF BERMUDIAN >60 Normal >=60 [facility] Comment on above: Performed By: #### M G, CMP #### [facility] [address] [address] [address] Doreen Betancourt EGFR-NON AF BERMUDIAN >60 Normal >=60 [facility] Comment on above: Performed By: #### M G, CMP #### [facility] [address] [address] [address] Doreen Betancourt Globulin (S) [Mass/Vol] 3.3 g/dL Normal [facility] Comment on above: Performed By: #### M G, CMP #### [facility] [address] [place] [address] Dr. Doreen Betancourt Glucose [Mass/Vol] 93 mg/dL Normal 74-106 [facility] Comment on above: Performed By: #### M G, CMP #### [facility] [address] [place] [address] Dr. Doreen Betancourt Potassium [Moles/Vol] 4.2 mmol/L Normal 3.5-5.1 [facility] Comment on above: Performed By: #### M G, CMP #### [facility] [address] [place] [address] Dr. Doreen Betancourt Protein [Mass/Vol] 6.9 g/dL Normal 6.4-8.2 [facility] Comment on above: Performed By: #### M G, CMP #### [facility] [address] [place] [address] Dr. Doreen Betancourt Sodium [Moles/Vol] 138 mmol/L Normal 136-145 [facility] Comment on above: Performed By: #### M G, CMP #### [facility] [address] [address] [address] Doreen Betancourt Urea nitrogen [Mass/Vol] 17.0 mg/dL Normal 7.0-18.0 [facility] Comment on above: Performed By: #### M G, CMP #### [facility] [address], [place] [address] Dr. Doreen Betancourt Urea nitrogen/Creatinine [Mass ratio] 27.9 mg/mg Normal [facility] Comment on above: Performed By: #### M G, [facility] #### [facility] [address], [place] [address] ABD/PELV W CONon [...] NEDA COULTER Date: 2022-03-27 17:13 Normal [facility] Covid-19 PCR (CVDTB)on SARS-CoV-2 (COVID-19) RNA MARIVEL+probe Ql (Unsp spec) Not detected Normal NOT DETECTED [facility] Comment on above: Result Comment: This test is not yet approved or cleared by the [place] FDA. When there are no FDA-approved or cleared tests available, and other criteria are met, FDA can make tests available under an emergency access mechanism called an Emergency Use Authorization (EUA). The EUA for this test is supported by the [place] of Health and Human Service's (HHS's) declaration [...] Performed By: #### M G, CMP #### [facility] [address] [place] [address] ABD/PELV W CONon [...] NEDA COULTER Date: 2022-01-09 17:53 Normal [facility] Coding Summaryon 05-01-2021 Coding Summary HTMLBase 64 ZsxjxeblESk8fZj+PGhlYWQ+PE 0MYBRjK78waGAhzM7PY4wCFP8D HBXACBUFCI4YKG3ylIJ5CTiiU2 VybiAv MqmijESnDN59OWk4NTW0tUkoRR izuT3reKVpO4h8NwVoIA85eJ61 PTjcLXPeCqZ7KfYiguuijLDy S3xyPbLviHGsFum+PHRhYmxlIH siSTMiVAfePWHwOyZlpMkjUW8b Vv9xGNBjSVUwtQdyxGBwLqVi d6xyTMMuGBbnOU6byNyyI5NccN N0ATXae6e6Ii29vUO+PHRkIHN0 fLzwEWmeg035AnZwf6wkTCE6 vGToKWckOWZ3T87lt6R4TPXpQH GzOKG1jHI4qG6jeUndtsuiO1Hf aQJoFwW7FTC0kLOchW6uwBae bqvraP7iKyb+U04PYP6WRQIPFA 1CLsj3E1VfUvywqMV+VF16ZHXt GB43bTJrnQEbh8ukyKg4BpXm LDUuSWP4jQlmGFztt4ZgHJDaJ3 8njLRrr0A4VJVctRbgyYNqKgNz vMN6eR4vAEfcdwjsx3zumiug Fubaz4tciu25pJ21Y00iSUosWB SnYPI5FVBcNXGshUxckz6euH9m Ii8+CBqpm2hpa8ixeLv0WjLm FKJypgThqCsmLPH2k9KpQr12V9 MryIwtr0CqYeb3ag40lHEkx4A5 aVK7GGbmAORblR8pMFtyKpP2 SKYiJxUzeA54pPEfBFfmFh1fkC dgdRtkRH1kIVAvufstEQOriZ9v OQLejMDprChxXN9hDIGohdbr z909HuWjMDV5MNDcdUOtM6EmuI 1fRlDjXZEtSLZhK6TqkAWtMEef G455ZZzzLmS3EBOotkPmN0Dj QUYmoIsuWsI3o1R5Yh4Md5Ogwx tcLTI7JUliQFFaFgR7GnOeNhV5 G7BpXza7GZApiXhfUD2vK3Qa FHZruxiriutzsEA9SZDzLXTjmV 95fLPbKUssNv3eo8S8p654TYLp DLJnpW09Nm6vgZomFDIrpKCO aJ1ocuxcw2rsxivoNvEtPWVmBJ n0ZBc2GKBemKlxHsEvDDU9EqB8 ELZ3gIInwO9ezWnquwkkkF4f Oyc+X46luT5fSTV7QXO7msqjCF EdhqNtIM52XJ38H4QxJocthLMy bGU+KUVjytGpnNwgEZ4xWrSw m8mhf7ZbCNgjB4VzMUMoROreKc s2FIYvYMX6nGZ5iP1iTBObENwg h2D8aIY8D7OkslXbcm1md3ub UNSlAWsuX57yzBRbm0F7LOKdeT K8SGIbdAhiFnXirY08Nzx+PGNv eDttp3TkUfnxv0mwt3khqCs1 VhFdWTEnflLabIwwQMQ9l3SyWo 58J95fVSoaBECsWJUxNVTxJADj iBulkn5veI3oJw4+PGNvbCB3 zCE1eW0zUIVeNsP5HZxwJ456Xd WcaUTaBomho0dcf7xkuSa8EnVj DNWrjbPztZfjUEG0v7OyGn81 Y44rDUfbQCYeUHGxQLRuJJCtqV kqtp0zyG5sCw9+BK5sx9nvjl12 qO66jRQ+VLMkOUC6cQcrCBbc OKVfpF9bIObkCdR0HUYoHqDcdL 72aYZyGPjzBo0rqPxydZclMN7w QBTgfjojv937UgTkd6ifHLUc mRIqAEhvQTP1G27zt3Y2CZDaGJ BzFVR5aGQ9yM5zgNvglscsuMIl sXqwexWegOfiSDgnEMjsL413 IHRvcDsnPlBhdGllbnQgTmFtZT o4H5HaMdb9QGSqdGfcHE1wbKFi NZsjCl3onJxpbTqbRM1vXFKs ytfnr501FiAkc0yzRFEnuEQnFP tcXFG3A84kd7O4DVAgJZKzXYS6 uXU2pK2ylVbaivxqkUHheQxt cuIlpZhrMNdgKUgfJ983IDBmmW ylEbKgviNhEOZkgKN2HS64IN97 wVOxr3H5mSV0H7GuTYVxntsx cjdwxBS2MGIwKENwmK59Oz3dbX jnCq7nZXWjBUK0AATbgZZuJ6Op wB1qOfWmKVQbIESeD5QaaQMk TZiqI860SRfvHjE7IRFaooHeT9 QoRIZcxDtlOrW7o2L2Sw7ZH9Z8 LJ84OY92pSCic3B0qIY4G1Jm HSKwrpqnkoghbQZ2MJLuTGCyvR 19Tf8iuYjrWk5nRDKiNHQ4LRAw qNZsX7IgfR4sVjNjGEUaKZKr W5GhqFTsTJjgO928YFtxJeO7GB EmaqMyM5ZjXSLfkSdkYbP0s9Q2 Pv3QWUs1PT63QC92wGXpk3K4 eJI6Z2IoGVCasfrnjjseqME4DW VvDEGslB37Fq4unHblYy4mDGRg UWH3LJIlzYReD4GsrC0zItLe RFZiMRJsZ8IwuOVsAUvhA457LK vvGrN1PEZessEkQ0QhBCFuyPuv DrW7a0C8Cg0TORNrTL81KAG2 sVX2UI88OD87O4FyZroepABooY U+PHRhYmxlIHdpZHRoPScxMDAl HrNusJzzEO4kEd7aXPKyXMBb uFzgqWSfTuKvb7fdQDYcMXtlGT 2qzNvwR2WvkNJ1VXRvr1c1Dq75 M97eN5KfnQJ+LNXmtTW8kDQ4 wS7lDfBbNmV6PXgjE997IgMpuS RvKmnez8daa3exgQi7McS7OCQp mkYvcAihCDP6q5FtGd49E72l IHdpZHRoPSIxNSUiIHZhbGlnbj 5soO4mTd3+WVQrtMJ0jMP2iC8d LfIuNsY6AEyhE093RmDkgZXr Fbisp4vxq1fsdLf9FeLsEUJcnr ZwzWngGWJ9c4AsTg74Q6SduLfi d2PxOqw0aw00yOPnq7C7wBE1 N5FgIVLnesyosVElmNilID0cFN RweammUJOztX7pHDTyJ3a2CnKi WdG8CEuhE1VxeiQ7OJWkdLLd HMxsPXQ0P78wu8A6ZSDcKDZcMJ J2wYG9kB0nhFdhpmnjyVPiqDfd scSfbVuaKYquCJwvY311LHGq wFllPEAjnO5fIMPxwKIlbPboWV 4wNTBpbjsnPlBFVElUVEksIEpV RElUSDwvdGQ+WGIeIYH5pOax NOymVPLfnJ7qNVQqA3w2IwMhIf Y7CZpeI9VaRRYxsjjoUw73sJ5g HfGpGcX3UPyrX7QcccZ1EZJe cXBjCNwfNXE8H44dj2E7NWMyBT NiWLW2qPO2aQ0cqDrjingbmURj eXkkovBofAlsHZjsJKruZ087 OZAvaOgpEnZ9PkZ6KhL8DbO8L1 TgSnp1EENfwZefGL0yaKGtZDfq Ru4egTvmlLxtVK3aBUOjqyxt AUCbcD3zUYTxxWMwtFblOC8xGA Qqnvdou981EfAjFKI2VUFfeZBy C6CzfG2uEdWfRXJlLPMzC5Fm wVScBMidV923TTvnDbS1URHfxj WrE2TyYZZjcMesDyO9d6N4Sz98 NSBZZWFyczwvdGQ+PHRkIHN0 sSuvCTljBRCrlJ0hHIEkP1e8Pj YaKeV4WXphY2FdNSRngwcgFm55 fT6bBbEnCbK3LEmqA4ClgfJ0 ACAxrPMdPDmqCKB1D34qn7Q1IZ GqTDCaWDG8vMA5jS7gwBgykmxm bGVmdDsgdmVydGljYWwtYWxp W181LTRtcWhyMnYPDNQZTDskuE Q+YQDsZEW2wKvvSRxiQKKrxF3n AKXmP7c4DhGsZyL8LAdqM5Eq GEUzadqxPv28cH1yAdAoKqT4HD qzO6SauhH9ZMInaZAoDYnmGZA0 U50mn7K6UDEcELSbBDW9nPI6 gL3qdOdsxqcxjPMijGtleqIchU lzSBrsBSnaZ886AACnjYusQh3H AV36WT72K2AoDhkvoJKyfCM+ PHRhYmxlIHdpZHRoPScxMDAlJy LonXfuJW3tGk6vDPFaFXVhpRgv eSOqFvXez5ixOBDvMLdsQH0t tSmxG7UscRR6YDMhz0w5Ac28D3 3pW7VuuRE+JHGibZS7dDV4sS8l KkUbIgG4LZmxS851BhMimLLj Vsiyz8dqu9itgOg8SsRmGPOkmy UssJylNBT0a8FdOr55M33fDVob AEWoTWLeNVJfQUIpwMabvq9e bB3mMd3+QSIgqPX3zNX8sB1gOm QiEjJ5QHqzH860DyJklQPlZqzz U42yA3SezTB+CTVyHui9UFKe qZifAQ4ooJIcWDgrZr8tHQZ5Cw HlXxAxFDdgF6FtAWJnvddmdwqy mGA1GBTrNKJfjK12Xl0ekRjq Hv6aKJWtYSH6QICouZBaF7MbsK 5rZfOfMWYwLIDaH2OfyOUjXOpo Z181HLyhFiW0HIHtnwFqY2Ir KXSloCliZqC3x4F7Iv1OuFkutE OuFZ2jPiNyWKu4I0GqLst7KRMf uWhqMP1cbBXsBMfnXt5idDem bItmXU2vLEUsbxqlh302NvNkn7 dsEMDpbXXfBKbuRRR8R45yr2A1 IJQvGNUnGSM1oQQ6tQ9ozAui bjogbGVmdDsgdmVydGljYWwtYW hbO200HCVunKhvAtTTCxz9M6Ux Uol5SSOjoOexYY4djURdXUpw Cm6ilEgvwQllMY4wWFKyipqho1 71ZdWoy4cbPFFrmALqGRtuVXO8 R05ib2A7ZICyOLZyHRZ7xDO6 kL8fpJlufhcumCZmrGseqrVenG lhKYlrWUjlE153AENdjZmtVd4B Ies3E1CqLcm0PZHwrKuzDP0l nIHgKDglRv9rbNdkfUohMF9fOQ Rkogbbs019IbGgd7guDRVeeXIa PZnwGMT6E05ug9N3CHGsMJOk ZVB9eTY8qC9mdSetcvxtpIDvzW wudxVvoGsnIIapCZxaN035ZKGv cDsnPlBheWVyOjwvdGQ+PC90 vy18W5FbOxwbTkc6QIAlSON2mW M2oF5nYOSmUEmiz4H9fXS0C1Df gvKrro0nd9lzAKXdZYtaM54m bGF (more content not included)... Normal [facility] ED Clinical Summaryon 2020 ED Clinical Summary [facility] [address] [place], [place] [id number] Clinical Summary PERSON INFORMATION Name: MARYSOL GARDNER Age: 56 Years Sex: FEMALE : 1965 MRN: Acct#: Visit Reason: Wrist laceration; LEFT WRIST LAC Arrival: 04/21/2021 17:52:39 Discharge: 04/21/2021 18:47:00 LOS: 000 00:55 Check In: 04/21/2021 17:52:39 Checkout: 04/21/2021 18:47:00 Address: [address] [place] [id number] PCP: Sandro Chin MD PROVIDER INFORMATION Provider [...] PATIENT EDUCATION INFORMATION Instructions: Laceration Care, Adult, Jawp-am-Jjzx Follow-Up: With: Address: When: Snadro Chin [address] [place] [address], [place] [address] Business (1) Within 3 to 5 days Comments: Please follow-up with Dr. Chin, call the office schedule an appointment to be seen in 3 to 5 days for wound check, please take your Augmentin as prescribed, keep the wound clean, apply bacitracin and keep it covered, have sutures removed in 10 to 12 days from today, take lfas-usc-ecqcacs pain medication as needed, and return back to the urgent care center for any worsening symptoms, concerns, or complications. DIAGNOSIS: 1:Laceration of left wrist Patient Understands: Yes - Patient/family/caregiver verbalizes understanding of instructions given Comment: Normal [facility] ED Patient Summaryon 021 ED Patient Summary [facility] [address] [place] [id number] PATIENT DISCHARGE INSTRUCTIONS Patient Information Name: MARYSOL GARDNER Age: 56 Years Date of : 1965 Reason For Visit: Wrist laceration; LEFT WRIST LAC Arrival Time: 04/21/2021 17:52:39 Primary Care Physician: Sandro Chin MD Attending Physician: Leo Art PA-C Comment: Patient Education With: Address: When: Sandro Chin [address] [place] [address] [place], [place] [id number] Business (1) Within 3 to 5 days Comments: Please follow-up with Dr. Chin, call the office schedule an appointment to be seen in 3 to 5 days for wound check, please take your Augmentin as prescribed, keep the wound clean, apply bacitracin and keep it covered, have sutures removed in 10 to 12 days from today, take fdqy-pzh-tjfyrlu pain medication as needed, and return back [...] needed: ? Soap. ? Water. ? Hand geoscience laboratory technician. ? Bandage (dressing). ? Antibiotic ointment. ? Clean towel. How to take care of your cut Wash your hands with soap and water before touching your wound or changing your bandage. If soap and water are not available, use hand geoscience laboratory technician. If your doctor used stitches or yuridia: [...] off the skin. General instructions ? Take rlwi-ugu-rxcuolc and prescription medicines only as told by [...] your doctor (more content not included)... Normal [facility] Progress Note - Nurseon 10-1 Progress Note - Nurse sutured wound irma summers, bacitracin applied and a bandage, pt tolerated well [Electronically Signed on: 04/21/2021 18:57 EDT] Lauren Boyer [Verified on: 04/21/2021 18:57 EDT] Lauren Boyer [facility] 021 Urgent Care Record [facility] [address] [place] [address] PATIENT DISCHARGE INSTRUCTIONS Patient Information Name: MARYSOL GARDNER Age: 56 Years Date of : 1965 Reason For Visit: Wrist laceration; LEFT WRIST LAC Arrival Time: 04/21/2021 17:52:39 Primary Care Physician: Giuseppe EMMANUEL, Sandro Ernst Attending Physician: Leo Art PA-C Comment: Visit Diagnosis: Diagnoses This Visit Laceration of left wrist (S61.512A) Wrist laceration ([id number]) If you received any narcotics, sedation, or [...] legal documents With: Address: When: Sandro Chin [address] [place] [address], [place] [address] Business (1) Within 3 to 5 days Comments: Please follow-up with Dr. Chin, call the office schedule an appointment to be seen in 3 to 5 days for wound check, please take your Augmentin as prescribed, keep the wound clean, apply bacitracin and keep it covered, have sutures removed in 10 to 12 days from today, take yxvq-dfe-gqhhcyl pain medication as needed, and return back to the urgent care center for any worsening symptoms, concerns, or complications. Medication Information: The exam and treatment you received today in the [facility] were for an urgent problem and are not intended as complete care. It is important for you to follow up with a doctor, nurse practitioner, or physician?s clerical assistant for ongoing care. If your symptoms [...] so we can reach you if necessary. [facility] has provided you with a complete list of medications post discharge. Please inform your manual arts therapy teacher/provider of your visit and for further instruction on these medications. Any specific questions regarding your chronic medications and dosages should be discussed with your primary care physician(s) and/or pharmacist. New Medications [facility] [address] [place], [place] [id number], [phone] amoxicillin-clavulanate (Augmentin 875 mg-125 mg oral tablet) [...] needed: ? Soap. ? Water. ? Hand geoscience laboratory technician. ? Bandage (dressing). ? Antibiotic ointment. ? Clean towel. How to take care of your cut Wash your hands with soap and water before touching your wound or changing your bandage. If soap and water ar (more content not included)... Normal [facility] Vital Signs Date Time Vital Sign Value Performing Clinician Facility 02-01-2025 09:55-0400 Diastolic blood pressure 58 mm[Hg] Sandro Chin MD Work Phone: [facility] 02-01-2025 09:55-0400 Heart rate 60 /min Sandro Chin MD Work Phone: [facility] 02-01-2025 09:55-0400 Respiratory rate 16 /min Sandro Chin MD Work Phone: [facility] 02-01-2025 09:55-0400 SaO2% (BldA) [Mass fraction] 98 % Sandro Chin MD Work Phone: [facility] 02-01-2025 09:55-0400 Systolic blood pressure 97 mm[Hg] Sandro Chin MD Work Phone: [facility] 02-01-2025 08:44-0400 Body height 162.56 cm Sandro Chin MD Work Phone: [facility] 02-01-2025 08:44-0400 Body weight 73.02 kg Sandro Chin MD Work Phone: [facility] 12-21-2024 08:32-0400 Body mass index (BMI) [Ratio] 27.29 kg/m2 Constantino Martinez MD Work Phone: [facility] 12-21-2024 08:32-0400 Body weight 72.12 kg Constantino Martinez MD Work Phone: [facility] 12-21-2024 08:32-0400 Diastolic blood pressure 101 mm[Hg] Constantino Martinez MD Work Phone: [facility] 12-21-2024 08:32-0400 Heart rate 68 /min Constantino Martinez MD Work Phone: [facility] 12-21-2024 08:32-0400 Systolic blood pressure 148 mm[Hg] Constantino Martinez MD Work Phone: [facility] 12-20-2024 10:41-0400 Body height 162.56 cm Sandro Chin MD Work Phone: [facility] 12-20-2024 10:41-0400 Body mass index (BMI) [Ratio] 27.6 kg/m2 Sandro Chin MD Work Phone: [facility] 12-20-2024 10:41-0400 Body weight 73.02 kg Sandro Chin MD Work Phone: [facility] 12-20-2024 10:41-0400 Diastolic blood pressure 85 mm[Hg] Sandro Chin MD Work Phone: [facility] 12-20-2024 10:41-0400 Heart rate 64 /min Sandro Chin MD Work Phone: [facility] 12-20-2024 10:41-0400 Systolic blood pressure 121 mm[Hg] Sandro Chin MD Work Phone: [facility] 12-14-2024 09:33-0400 Body height 162.56 cm [facility] 12-14-2024 09:33-0400 Body mass index (BMI) [Ratio] 27.6 kg/m2 [facility] 12-14-2024 09:33-0400 Body weight 73.08 kg [facility] 12-14-2024 09:33-0400 Diastolic blood pressure 87 mm[Hg] [facility] 12-14-2024 09:33-0400 Heart rate 58 /min [facility] 12-14-2024 09:33-0400 Systolic blood pressure 142 mm[Hg] [facility] 09-06-2024 12:58-0500 Body height 162.56 cm Clint Jean Baptiste DO Work Phone: [facility] 09-06-2024 12:58-0500 Body mass index (BMI) [Ratio] 28.8 kg/m2 Clint Jean Baptiste DO Work Phone: [facility] 09-06-2024 12:58-0500 Body temperature 97.5 [degF] Clint Jean Baptiste DO Work Phone: [facility] 09-06-2024 12:58-0500 Body weight 76.2 kg Clint Jean Baptiste DO Work Phone: [facility] 09-06-2024 12:58-0500 Diastolic blood pressure 89 mm[Hg] Clint Jean Baptiste DO Work Phone: [facility] 09-06-2024 12:58-0500 Heart rate 58 /min Clint Jean Baptiste DO Work Phone: [facility] 09-06-2024 12:58-0500 Respiratory rate 16 /min Clint Jean Baptiste DO Work Phone: [facility] 09-06-2024 12:58-0500 SaO2% (BldA) [Mass fraction] 99 % Clint Jean Baptiste DO Work Phone: [facility] 09-06-2024 12:58-0500 Systolic blood pressure 139 mm[Hg] Clint Jean Baptiste DO Work Phone: [facility] 07-01-2024 10:59-0500 Body height 162.56 cm Clint Jean Baptiste DO Work Phone: [facility] 07-01-2024 10:59-0500 Body mass index (BMI) [Ratio] 28.8 kg/m2 Clint Jean Baptiste DO Work Phone: [facility] 07-01-2024 10:59-0500 Body weight 76.2 kg Clint Jean Baptiste DO Work Phone: [facility] 07-01-2024 10:59-0500 Diastolic blood pressure 84 mm[Hg] Clint Jean Baptiste DO Work Phone: [facility] 07-01-2024 10:59-0500 Heart rate 64 /min Clint Jean Baptiste DO Work Phone: [facility] 07-01-2024 10:59-0500 Systolic blood pressure 138 mm[Hg] Clint Jean Baptiste DO Work Phone: [facility] 03-25-2024 11:29-0400 Body height 162.6 cm Masha Richardson OR FIRST ASSIST REGISTERED NURSE-PRESSROOM SUPERVISOR Work Phone: [facility] 03-25-2024 11:29-0400 Body mass index (BMI) [Ratio] 27.5 kg/m2 Masha Lee OR FIRST ASSIST REGISTERED NURSE-PRESSROOM SUPERVISOR Work Phone: [facility] 03-25-2024 11:29-0400 Body weight 72.67 kg Masha Richardson OR FIRST ASSIST REGISTERED NURSE-PRESSROOM SUPERVISOR Work Phone: [facility] 03-25-2024 11:29-0400 Diastolic blood pressure 60 mm[Hg] Msaha Richardson OR FIRST ASSIST REGISTERED NURSE-PRESSROOM SUPERVISOR Work Phone: [facility] 03-25-2024 11:29-0400 Heart rate 54 /min Masah Richardson OR FIRST ASSIST REGISTERED NURSE-PRESSROOM SUPERVISOR Work Phone: [facility] 03-25-2024 11:29-0400 Systolic blood pressure 102 mm[Hg] Masha Richardson OR FIRST ASSIST REGISTERED NURSE-PRESSROOM SUPERVISOR Work Phone: [facility] 03-15-2024 13:50-0400 Body height 162.6 cm Clint Jean Baptiste DO Work Phone: [facility] 03-15-2024 13:50-0400 Body mass index (BMI) [Ratio] 27.46 kg/m2 Clint Alejandros DO Work Phone: [facility] 03-15-2024 13:50-0400 Body weight 72.58 kg Clint Alejandros DO Work Phone: [facility] 03-03-2024 10:26-0400 Body height 162.6 cm Clint Alejandros DO Work Phone: [facility] 03-03-2024 10:26-0400 Body mass index (BMI) [Ratio] 27.46 kg/m2 Clint Alejandros DO Work Phone: [facility] 03-03-2024 10:26-0400 Body weight 72.58 kg Clint Alejandros DO Work Phone: [facility] 01-19-2024 11:22-040 Body height 162.56 cm DO Clint Alejandros Work Phone: [facility] 01-19-2024 11:22-0400 Body mass index (BMI) [Ratio] 28.8 kg/m2 DO Clint Alejandros Work Phone: [facility] 01-19-2024 11:22-040 Body temperature 98 [degF] DO Clint Alejandros Work Phone: [facility] 01-19-2024 11:22-040 Body weight 76.2 kg DO Clint Alejandros Work Phone: [facility] 01-19-2024 11:22-0400 Diastolic blood pressure 91 mm[Hg] DO Clint Monicoillis Work Phone: [facility] 01-19-2024 11:22-040 Heart rate 52 /min DO Clint Monicoillis Work Phone: [facility] 01-19-2024 11:22-0400 Respiratory rate 18 /min DO Clint Flavias Work Phone: [facility] 01-19-2024 11:22-0400 SaO2% (BldA) [Mass fraction] 99 % DO Clint Monicoillis Work Phone: [facility] 01-19-2024 11:22-0400 Systolic blood pressure 138 mm[Hg] DO Clint Grillis Work Phone: [facility] 11-17-2023 09:37-0400 Body height 162.56 cm DO Clint Monicoillis Work Phone: [facility] 11-17-2023 09:37-0400 Body mass index (BMI) [Ratio] 28.8 kg/m2 DO Clint Grillis Work Phone: [facility] 11-17-2023 09:37-0400 Body weight 76.2 kg DO Clint Monicoillis Work Phone: [facility] 11-17-2023 09:37-0400 Diastolic blood pressure 88 mm[Hg] DO Clint Monicoillis Work Phone: [facility] 11-17-2023 09:37-0400 Heart rate 60 /min DO Clint Monicoillis Work Phone: [facility] 11-17-2023 09:37-0400 Systolic blood pressure 136 mm[Hg] DO Clint Monicoillis Work Phone: [facility] 09-26-2023 10:34-0400 Body height 162.56 cm DO Clint Monicoillis Work Phone: [facility] 09-26-2023 10:34-0400 Body mass index (BMI) [Ratio] 28.8 kg/m2 DO Clint Grillis Work Phone: [facility] 09-26-2023 10:34-0400 Body weight 76.2 kg DO Clint Grillis Work Phone: [facility] 09-26-2023 10:34-0400 Diastolic blood pressure 82 mm[Hg] DO Clint Grillis Work Phone: [facility] 09-26-2023 10:34-0400 Heart rate 63 /min DO Clint Flavias Work Phone: [facility] 09-26-2023 10:34-0400 Respiratory rate 18 /min DO Clint Monicoillis Work Phone: [facility] 09-26-2023 10:34-0400 SaO2% (BldA) [Mass fraction] 97 % DO Clint Monicoillis Work Phone: [facility] 09-26-2023 10:34-0400 Systolic blood pressure 131 mm[Hg] DO Clint Monicoillis Work Phone: [facility] 06-25-2023 11:13-0500 Diastolic blood pressure 79 mm[Hg] DO Clint Flavias Work Phone: [facility] 06-25-2023 11:13-0500 Heart rate 78 /min DO Clint Alejandros Work Phone: [facility] 06-25-2023 11:13-0500 Respiratory rate 20 /min DO Clint Flavias Work Phone: [facility] 06-25-2023 11:13-0500 SaO2% (BldA) [Mass fraction] 98 % DO Clint Alejandros Work Phone: [facility] 06-25-2023 11:13-0500 Systolic blood pressure 142 mm[Hg] DO Clint Alejandros Work Phone: [facility] 05-19-2023 11:15-0500 Body height 162.56 cm Sandro Chin Other [employer] Other 05-19-2023 11:15-0500 Body mass index (BMI) [Ratio] 28.56 kg/m2 Sandro Chin Other [employer] Other 05-19-2023 11:15-0500 Body weight 75.48 kg Sandro Chin Other [employer] Other 05-19-2023 11:15-0500 Diastolic blood pressure 75 mm[Hg] Sandro Chin Other [email or web address] Other 05-19-2023 11:15-0500 Systolic blood pressure 109 mm[Hg] Sandro Chin Other [employer] [email or web address] Other 03-24-2023 10:41-0400 Body temperature 97.4 [degF] DO Clint Jean Baptiste Work Phone: [facility] 09-02-2022 08:36-0500 Body temperature 98 [degF] DO Isaías Adamowicz II Work Phone: [facility] 09-02-2022 08:36-0500 Body weight 76.6 kg DO Isaías Adamowicz II Work Phone: [facility] 09-02-2022 08:36-0500 Diastolic blood pressure 90 mm[Hg] DO Isaías Adamowicz II Work Phone: [facility] 09-02-2022 08:36-0500 Heart rate 65 /min DO Isaías Adamowicz II Work Phone: [facility] 09-02-2022 08:36-0500 Respiratory rate 20 /min DO Isaías Adamowicz II Work Phone: [facility] 09-02-2022 08:36-0500 SaO2% (BldA) [Mass fraction] 99 % DO Isaías Adamowicz II Work Phone: [facility] 09-02-2022 08:36-0500 Systolic blood pressure 147 mm[Hg] DO Isaías Adamowicz II Work Phone: [facility] 08-19-2022 08:43-0500 Body temperature 98.1 [degF] DO Isaías Adamowicz II Work Phone: [facility] 08-19-2022 08:43-0500 Body weight 74.9 kg DO Isaías Adamowicz II Work Phone: [facility] 08-19-2022 08:43-0500 Diastolic blood pressure 90 mm[Hg] DO Isaías Adamowicz II Work Phone: [facility] 08-19-2022 08:43-0500 Heart rate 60 /min DO Isaías Adamowicz II Work Phone: [facility] 08-19-2022 08:43-0500 Respiratory rate 20 /min DO Isaías Adamowicz II Work Phone: [facility] 08-19-2022 08:43-0500 SaO2% (BldA) [Mass fraction] 100 % DO Isaías Adamowicz II Work Phone: [facility] 08-19-2022 08:43-0500 Systolic blood pressure 143 mm[Hg] DO Isaías Adamowicz II Work Phone: [facility] 07-22-2022 09:43-0500 Body temperature 97.8 [degF] DO Isaías Adamowicz II Work Phone: [facility] 07-22-2022 09:43-0500 Body weight 75.7 kg DO Isaías Adamowicz II Work Phone: [facility] 07-22-2022 09:43-0500 Diastolic blood pressure 92 mm[Hg] DO Isaías Adamowicz II Work Phone: [facility] 07-22-2022 09:43-0500 Heart rate 67 /min DO Isaías Adamowicz II Work Phone: [facility] 07-22-2022 09:43-0500 Respiratory rate 16 /min DO Isaías Adamowicz II Work Phone: [facility] 07-22-2022 09:43-0500 SaO2% (BldA) [Mass fraction] 98 % DO Isaías Adamowicz II Work Phone: [facility] 07-22-2022 09:43-0500 Systolic blood pressure 149 mm[Hg] DO Isaías Jordan II Work Phone: [facility] 06-26-2022 12:23-0500 Body temperature 97.9 [degF] DO Clint Monicoillis Work Phone: [facility] 06-26-2022 12:23-0500 Diastolic blood pressure 79 mm[Hg] DO Clint Monicoillis Work Phone: [facility] 06-26-2022 12:23-0500 Heart rate 60 /min DO Clint Monicoillis Work Phone: [facility] 06-26-2022 12:23-0500 Respiratory rate 18 /min DO Clint Monicoillis Work Phone: [facility] 06-26-2022 12:23-0500 SaO2% (BldA) [Mass fraction] 97 % DO Clint Monicoillis Work Phone: [facility] 06-26-2022 12:23-0500 Systolic blood pressure 132 mm[Hg] DO Clint Monicoillis Work Phone: [facility] 06-24-2022 10:02-0500 Body weight 75 kg DO Clint Monicoillis Work Phone: [facility] 06-24-2022 09:08-0500 Body temperature 98 [degF] DO Clint Monicoillis Work Phone: [facility] 06-24-2022 09:08-0500 Body weight 75 kg DO Clint Grillis Work Phone: [facility] 06-24-2022 09:08-0500 Diastolic blood pressure 93 mm[Hg] DO Clint Grillis Work Phone: [facility] 06-24-2022 09:08-0500 Heart rate 61 /min DO Clint Grillis Work Phone: [facility] 06-24-2022 09:08-0500 Respiratory rate 16 /min DO Clint Jean Baptiste Work Phone: [facility] 06-24-2022 09:08-0500 SaO2% (BldA) [Mass fraction] 98 % DO Clint Jean Baptiste Work Phone: [facility] 06-24-2022 09:08-0500 Systolic blood pressure 137 mm[Hg] DO Clint Jean Baptiste Work Phone: [facility] 06-03-2022 08:08-0500 Body weight 74.1 kg DO Clint Jean Baptiste Work Phone: [facility] 06-03-2022 08:08-0500 Diastolic blood pressure 90 mm[Hg] DO Clint Jean Baptiste Work Phone: [facility] 06-03-2022 08:08-0500 Heart rate 56 /min DO Clint Jean Baptiste Work Phone: [facility] 06-03-2022 08:08-0500 Respiratory rate 20 /min DO Clint Jean Baptiste Work Phone: [facility] 06-03-2022 08:08-0500 SaO2% (BldA) [Mass fraction] 98 % DO Clint Jean Baptiste Work Phone: [facility] 06-03-2022 08:08-0500 Systolic blood pressure 137 mm[Hg] DO Clint Jean Baptiste Work Phone: [facility] 05-03-2022 14:40-0400 Body height 162.56 cm DO Clint Jean Baptiste Work Phone: [facility] Encounters Encounter Date Encounter Type Care Provider Facility Start: 02-01-2025 End: 02-01-2025 ambulatory Sandro Chin Facility:[facility] Start: 02-01-2025 Non-patient / Non-visit Roz Borrego [facility] Work Phone: Start: 12-25-2024 Non-patient / Non-visit Sandro mendoza MD -[facility] Work Phone: Start: 12-21-2024 End: 12-21-2024 Bamboo flowsheet Constantino [...] Start: 12-20-2024 End: 12-20-2024 ambulatory Sandro Chin Facility:[facility] Start: 12-20-2024 End: 12-20-2024 Departed Referred Sandro Chin MD -[facility] Work Phone: Start: 12-20-2024 End: 12-20-2024 Patient encounter procedure Sandro Chin MD -[facility] Work Phone: Start: 12-20-2024 End: 12-20-2024 Patient encounter status Sandro Chin MD [facility] Start: 12-14-2024 End: 12-14-2024 ambulatory [facility] Work Phone: Start: 12-14-2024 End: 12-14-2024 Patient encounter procedure [facility] Work Phone: Start: 09-06-2024 Registered Recurring Clint eaton DO Work Phone: [facility] Work Phone: Start: 09-06-2024 End: 09-06-2024 ambulatory Clint Jean Baptiste DO Work Phone: [facility] Work Phone: Start: 09-06-2024 End: 09-06-2024 Patient encounter procedure Clint Jean Baptiste DO Work Phone: [facility] Work Phone: Start: 08-24-2024 Non-patient / Non-visit Leroy wiseman Ita DO Work Phone: [facility] Work Phone: Start: 07-01-2024 End: 07-01-2024 Patient encounter procedure Clint Jean Baptiste DO Work Phone: [facility] Work Phone: Start: 03-25-2024 End: 03-25-2024 ambulatory [facility] Start: 03-25-2024 End: 03-25-2024 Postop follow up visit related to original px [facility] OR FIRST ASSIST REGISTERED NURSE-PRESSROOM SUPERVISOR Work Phone: [facility] Comment on above: History of removal o f Port-a-Cath (Primary Dx); History of colon cancer Start: 03-15-2024 End: 03-15-2024 ambulatory [facility] Start: 03-15-2024 End: 03-15-2024 Patient encounter procedure Clint Jean Baptiste DO Work Phone: [facility] Comment on above: History of colon can cer (Primary Dx) Start: 03-03-2024 End: 03-03-2024 ambulatory [facility] Start: 03-03-2024 End: 03-03-2024 Office outpatient visit 15 minutes Clint Jean Baptiste DO Work Phone: [facility] Comment on above: History of colon can cer (Primary Dx) Start: 01-19-2024 End: 01-19-2024 ambulatory DO Clint Jean Baptiste Work Phone: [facility] Work Phone: Start: 01-19-2024 End: 01-19-2024 Patient encounter procedure DO Clint Jean Baptiste Work Phone: [facility] Work Phone: Start: 01-19-2024 Registered Recurring DO Leroy Jean Baptiste Work Phone: [facility] Work Phone: Start: 01-15-2024 Non-patient / Non-visit DO Sherwin Jean Baptiste Work Phone: [facility] Work Phone: Start: 11-26-2023 Non-patient / Non-visit DO Sherwin Jean Baptiste Work Phone: [facility] Work Phone: Start: 11-17-2023 Patient encounter status DO Araseli Jean Baptiste Work Phone: [facility] Start: 11-17-2023 End: 11-17-2023 ambulatory DO Clint Jean Baptiste Work Phone: [facility] Work Phone: Start: 11-17-2023 End: 11-17-2023 Patient encounter procedure DO Clint Jean Baptiste Work Phone: [facility] Work Phone: Start: 09-26-2023 Registered Recurring DO Leroy Jean Baptiste Work Phone: [facility] Work Phone: Start: 09-26-2023 End: 09-26-2023 ambulatory DO Clint Jean Baptiste Work Phone: [facility] Work Phone: Start: 09-26-2023 End: 09-26-2023 Patient encounter procedure DO Clint Jean Baptiste Work Phone: [facility] Work Phone: Start: 09-18-2023 Non-patient / Non-visit DO Sherwin Jean Baptiste Work Phone: [facility] Work Phone: Start: 05-19-2023 End: 05-19-2023 ambulatory Sandro Chin Other [facility] [employer] Other Start: 05-19-2023 Office outpatient vi sit 15 minutes Sandro Chin [facility] Start: 11-16-2022 End: 11-17-2022 ambulatory ISAÍAS JORDAN Facility:[facility] Start: 11-02-2022 End: 11-03-2022 ambulatory ISAÍAS JORDAN Facility:[facility] Start: 10-19-2022 End: 10-20-[address] SANDRO CHIN Facility:[facility] Start: 09-14-2022 End: 09-15-2022 ambulatory ISAÍAS JORDAN Facility:[facility] Start: 09-02-2022 End: 09-02-2022 ambulatory NON STAFF [facility] Work Phone: Start: 09-02-2022 End: 09-02-2022 Registered Recurring DO Isaías Jordan II Work Phone: [facility] Work Phone: Start: 09-01-2022 End: 09-01-[address] SANDRO CHIN Facility:[facility] Start: 08-31-2022 End: 09-01-2022 ambulatory ISAÍAS JORDAN Facility:[facility] Start: 08-19-2022 End: 08-19-2022 ambulatory NON STAFF [facility] Work Phone: Start: 08-19-2022 End: 08-19-2022 Registered Recurring DO Isaías Jordan II Work Phone: [facility] Work Phone: Start: 08-16-2022 End: 08-17-2022 ambulatory ISAÍAS JORDAN Facility:[facility] Start: 08-03-2022 End: 08-04-2022 ambulatory ISAÍAS JORDAN Facility:[facility] Start: 07-22-2022 End: 07-22-2022 ambulatory NON STAFF [facility] Work Phone: Start: 07-22-2022 End: 07-22-2022 Registered Recurring DO Isaías Jordan II Work Phone: [facility] Work Phone: Start: 07-20-2022 End: 07-21-2022 ambulatory ISAÍAS JORDAN Facility:[facility] Start: 07-06-2022 End: 07-06-2022 ambulatory DO Clint Klever Alejandros Work Phone: [facility] Work Phone: Start: 07-06-2022 End: 07-06-2022 Departed Referred DO Clint Alejandros Work Phone: [facility] [place] Work Phone: Start: 06-26-2022 Registered Recurring DO Leroy Marcpapa Work Phone: [facility] Work Phone: Start: 06-24-2022 End: 06-24-2022 ambulatory DO Clint Klever Alejandros Work Phone: [facility] Work Phone: Start: 06-24-2022 End: 06-24-2022 Registered Recurring DO Clint Alejandros Work Phone: [facility] Start: 06-24-2022 End: 06-24-2022 ambulatory DO Clint Klever Marcillis Work Phone: [facility] Work Phone: Start: 06-24-2022 End: 06-24-2022 Registered Recurring DO Clint Monicoillis Work Phone: [facility] Start: 06-22-2022 End: 06-23-2022 ambulatory ISAÍAS JORDAN Facility:[facility] Start: 06-08-2022 End: 06-09-2022 ambulatory ISAÍAS JORDAN Facility:[facility] Start: 06-03-2022 End: 06-03-2022 ambulatory DO Clint Jean Baptiste Work Phone: [facility] Work Phone: Start: 06-03-2022 End: 06-03-2022 Registered Recurring DO Clint Jean Baptiste Work Phone: [facility] Start: 06-01-2022 End: 06-02-2022 ambulatory ISAÍAS JORDAN Facility:[facility] Start: 05-22-2022 End: 05-23-2022 ambulatory ISAÍAS Seals RADHA Facility:[facility] Start: 05-21-2022 Encounter for preprocedural laboratory examination DR CLINT JEAN BAPTISTE . [facility] Start: 05-18-2022 End: 05-19-[address] [...] examination DR CLINT JEAN BAPTISTE . [facility] Start: 04-04-2022 Encounter for preprocedural laboratory examination DR CLINT JEAN BAPTISTE . [facility] Start: 04-02-2022 End: [address] CLINT JEAN BAPTISTE . Facility:[facility] Start: 04-02-2022 End: 2022 Encounter for preprocedural cardiovascular examination DR CLINT JEAN BAPTISTE . Facility:[facility] Start: 03-27-2022 End: 03-28-[address] CLINT JEAN BAPTISTE . Facility:[facility] Start: 03-13-2022 End: 03-13-[address] CLINT JEAN BAPTISTE . Facility:[facility] Start: 03-09-2022 End: 03-10-[address] CLINT JEAN BAPTISTE . Facility: Start: 01-09-2022 End: 01-10-[address] SANDRO CHIN Facility:[facility] Procedures Date Procedure Procedure Detail Performing Clinician Start: 08-24-2024 Carcinoembryonic antigen cea Clint Harrison nate DO Work Phone: Comment on above: Nonsmokers <3.9 Smokers <5.6[employer] Electrochemiluminescence Immunoassay(ECLIA)Values obtained with different assay methods or kitscannot be used interchangeably. Results cannot beinterpreted as absolute evidence of the presence orabsence of malignant disease.Performed at: [facility] [id number] [place], [place] [id number] Director: Edilson Saunders PhD, Phone: [phone] Start: 01-15-2024 Carcinoembryonic antigen cea DO Clint Jean Baptiste Work Phone: Comment on above: Nonsmokers <3.9 Smokers <5.6[employer] Electrochemiluminescence Immunoassay(ECLIA)Values obtained with different assay methods or kitscannot be used interchangeably. Results cannot beinterpreted as absolute evidence of the presence orabsence of malignant disease.Performed at: [id number] [place], [place] [id number] Director: Edilson Saunders PhD, Phone: [phone] Start: 09-18-2023 Carcinoembryonic antigen cea DO Clint Jean Baptiste Work Phone: Comment on above: Nonsmokers <3.9 Smokers <5.6[employer] Electrochemiluminescence Immunoassay(ECLIA)Values obtained with different assay methods or kitscannot be used interchangeably. Results cannot beinterpreted as absolute evidence of the presence orabsence of malignant disease.Performed at: [id number] [place], [place] [id number] Director: Edilson Saunders PhD, Phone: [phone] Start: 05-07-2023 Colonoscopy Clint Jean Baptiste DO Work Phone: Start: 04-10-2022 Resection of Sigmoid Colon, Open Approach ISAÍAS JORDAN Plan of Treatment Date Care Activity Detail Author Start: 05-07-2033 Screening for malign ant neoplasm of colon [facility] Start: 05-07-2026 Screening for malign ant neoplasm of colon Colonoscopy [facility] Start: 03-15-2025 Adult BMI Screening Adult BMI Screen ing [facility] Start: 03-15-2025 Tobacco Screening Tobacco Screening [facility] Start: 03-03-2025 Adult BMI Screening Adult BMI Screen ing [facility] Start: 03-03-2025 Tobacco Screening Tobacco Screening [facility] Start: 02-01-2025 End: 02-01-2025 [facility] Start: 12-21-2024 End: 12-21-2024 Patient encounter procedure 12/21/2024 8:40 AM EDT Office Visit [facility] [address] [facility] [address] [place] [id number] Constantino Martinez MD [address] [facility] [address] [place] [address] Arrived [facility] Comment on above: Arrived Start: 12-14-2024 Patient referral [facility] Work Phone: Start: 03-25-2024 End: 03-25-2024 Patient encounter procedure 03/25/2024 11:00 AM EDT [facility] [address] [place] [id number] Masha Richardson, OR FIRST ASSIST REGISTERED NURSE-PRESSROOM SUPERVISOR [address] [place], [place] [id number] [facility] Start: 03-15-2024 End: 03-15-2024 Patient encounter procedure 03/15/2024 1:30 PM EDT Office Visit [facility] [address] [place] [id number] Clint Jean Baptiste DO [address] [place], [place] [id number] [facility] Start: 03-07-2024 COVID-19 Vaccine ( season) COVID-19 Vaccine () [facility] Start: 03-07-2024 Influenza vaccination Influenza Vacc ine [facility] Start: 01-19-2024 Patient referral [facility] Work Phone: Start: 11-17-2023 Patient referral [facility] Work Phone: Start: 03-07-2023 COVID-19 Vaccine ( season) COVID-19 Vaccine () [facility] Start: 11-18-2022 [facility] Start: 11-18-2022 [facility] Start: 11-04-2022 [facility] Start: 10-21-2022 [facility] Start: 10-21-2022 [facility] Start: 10-21-2022 [facility] Start: 09-23-2022 [facility] Start: 09-23-2022 [facility] Start: 09-16-2022 [facility] Start: 09-02-2022 [facility] Start: 08-19-2022 [facility] Start: 08-19-2022 [facility] Start: 08-05-2022 [facility] Start: 07-22-2022 [facility] Start: 07-09-2022 [facility] Start: 06-26-2022 [facility] Start: 06-24-2022 [facility] Start: 06-10-2022 Comprehensive metabo lic 2000 panel - Serum or Plasma [facility] Start: 06-10-2022 Magnesium measurement F [facility] Start: 06-10-2022 [facility] Start: 06-10-2022 [facility] Start: 06-03-2022 [facility] Start: 05-27-2022 [facility] Start: 2006 Screening for malign ant neoplasm of breast Mammogram [facility] Start: 1996 Screening for malign ant neoplasm of cervix [facility] Start: 1987 Screening for malign ant neoplasm of cervix Pap Smear [facility] Start: 1985 Administration of va ricella zoster vaccine Zoster (Shingles) Vaccine (1 of 2) [facility] Start: 1985 DTaP,Tdap and Td Vac cines (1 - Tdap) DTaP,Tdap and Td Vaccines (1 - Tdap) [facility] Start: 1984 Adult BMI Follow Up Plan Adult BMI Follow Up Plan [facility] Start: 1978 Depression Screening Depression Scre ening [facility] Start: 1966 Screening for malign ant neoplasm of colon [facility] Alanine aminotransfe rase [Enzymatic activity/volume] in Serum or Plasma by No addition of P-5'-P [facility] Work Phone: Alanine aminotransfe rase [Enzymatic activity/volume] in Serum or Plasma by No addition of P-5'-P [facility] Albumin [Mass/volume ] in Serum or Plasma [facility] Work Phone: Albumin [Mass/volume ] in Serum or Plasma [facility] Albumin/Globulin ratio [facility] Work Phone: Albumin/Globulin ratio [facility] Alkaline phosphatase [Enzymatic activity/volume] in Serum or Plasma [facility] Work Phone: Alkaline phosphatase [Enzymatic activity/volume] in Serum or Plasma [facility] Anion gap measurement [facility] Work Phone: Anion gap measurement [facility] Aspartate aminotrans ferase [Enzymatic activity/volume] in Serum or Plasma [facility] Work Phone: Aspartate aminotrans ferase [Enzymatic activity/volume] in Serum or Plasma [facility] Basophil count [facility] Work Phone: Basophil percent differential count [facility] Work Phone: Bilirubin.total [Mass/volume] in Serum or Plasma [facility] Work Phone: Bilirubin.total [Mass/volume] in Serum or Plasma [facility] Calcium [Mass/volume ] in Serum or Plasma [facility] Work Phone: Calcium [Mass/volume ] in Serum or Plasma [facility] Carbon dioxide, tota l [Moles/volume] in Serum or Plasma [facility] Work Phone: Carbon dioxide, tota l [Moles/volume] in Serum or Plasma [facility] Carcinoembryonic Ag [Mass/volume] in Serum or Plasma [facility] Chloride [Moles/volu me] in Serum or Plasma [facility] Work Phone: Chloride [Moles/volu me] in Serum or Plasma [facility] Choriogonadotropin ( test) [Presence] in Urine [facility] Comprehensive metabo lic 1999 panel - Serum or Plasma [facility] Comprehensive metabo lic 1999 panel - Serum or Plasma [facility] Comprehensive metabo lic 1999 panel - Serum or Plasma [facility] Comprehensive metabo lic 1999 panel - Serum or Plasma [facility] Comprehensive metabo lic 1999 panel - Serum or Plasma [facility] Comprehensive metabo lic 1999 panel - Serum or Plasma [facility] Comprehensive metabo lic 1999 panel - Serum or Plasma [facility] Comprehensive metabo lic 1999 panel - Serum or Plasma [facility] Comprehensive metabo lic 1999 panel - Serum or Plasma [facility] Comprehensive metabo lic 1999 panel - Serum or Plasma [facility] Comprehensive metabo lic 1999 panel - Serum or Plasma [facility] Comprehensive metabo lic 1999 panel - Serum or Plasma [facility] Comprehensive metabo lic 1999 panel - Serum or Plasma [facility] Comprehensive metabo lic 1999 panel - Serum or Plasma [facility] Creatinine and Glome rular filtration rate.predicted panel - Serum, Plasma or Blood [facility] Work Phone: Creatinine and Glome rular filtration rate.predicted panel - Serum, Plasma or Blood [facility] CT Abdomen and Pelvi s W contrast IV [facility] CT Abdomen and Pelvi s W contrast IV [facility] CT Abdomen and Pelvi s W contrast IV [facility] CT Abdomen and Pelvi s W contrast IV [facility] CT Abdomen and Pelvi s W contrast IV [facility] CT Abdomen and Pelvi s W contrast IV [facility] CT Chest W contrast IV [facility] CT Chest W contrast IV [facility] CT Chest W contrast IV [facility] CT Chest W contrast IV [facility] CT Chest W contrast IV [facility] CT Chest W contrast IV [facility] Eosinophil percent differential count [facility] Work Phone: Eosinophils [#/volum e] in Blood [facility] Work Phone: Erythrocyte mean cor puscular volume determination [facility] Work Phone: Erythrocytes [#/volu me] in Blood [facility] Work Phone: Globulin [Mass/volum e] in Serum [facility] Work Phone: Globulin [Mass/volum e] in Serum [facility] Glucose [Mass/volume ] in Serum or Plasma [facility] Work Phone: Glucose [Mass/volume ] in Serum or Plasma [facility] Hematocrit [Volume F raction] of Blood [facility] Work Phone: Hemoglobin [Mass/vol ume] in Blood [facility] Work Phone: Hemoglobin distribut ion, width determination [facility] Work Phone: Leukocytes [#/volume ] in Blood [facility] Work Phone: Lymphocyte count [facility] Work Phone: Lymphocyte percent differential count [facility] Work Phone: Magnesium measurement [facility] Magnesium measurement [facility] Magnesium measurement [facility] Mean corpuscular hem oglobin concentration determination [facility] Work Phone: Mean corpuscular hem oglobin determination [facility] Work Phone: Measurement of renal function [facility] Work Phone: Measurement of renal function [facility] MG Breast - bilatera l Screening [facility] Monocyte count [facility] Work Phone: Monocyte percent differential count [facility] Work Phone: Neutrophil count [facility] Work Phone: Neutrophil percent differential count [facility] Work Phone: Patient Education [employer] - Rosa pierre instructions Know your Meds [facility] Work Phone: Patient referral [facility] Work Phone: Platelet mean volume determination [facility] [employer] Work Phone: Platelets [#/volume] in Blood [facility] Work Phone: Potassium [Moles/vol ume] in Serum or Plasma [facility] Work Phone: Potassium [Moles/vol ume] in Serum or Plasma [facility] Protein [Mass/volume ] in Serum or Plasma [facility] Work Phone: Protein [Mass/volume ] in Serum or Plasma [facility] Sodium [Moles/volume ] in Serum or Plasma [facility] Work Phone: Sodium [Moles/volume ] in Serum or Plasma [facility] Urea nitrogen [Mass/ volume] in Serum or Plasma [facility] Work Phone: Urea nitrogen [Mass/ volume] in Serum or Plasma [facility] Payers Date Payer Category Payer [facility] [id number] 2022 Unknown SIMRANANNE MARIE EDDIE ACCE SS (PPO) [id number] 2022-Present [id number] [place], [place] [id number]. [id number] 2022 Self-pay 2022 Unknown [id number] 2019 Unknown [id number] 1966 Unknown [id number] 2.16.840.1.420748.3.579.2. 593 1966 Unknown [id number] 2.16.840.1.375089.3.579.2. 59 1966 Unknown [id number] 2.16.840.1.150012.3.579.2. 593 1966 Unknown [id number] 2.16.840.1.512889.3.579.2. 593 1966 Unknown [id number] 2.16.840.1.479805.3.579.2. 593 1966 Unknown [id number] 2.16.840.1.870271.3.579.2. 593 1966 Unknown [id number] 2.16.840.1.603213.3.579.2. 593 1966 Unknown [id number] 2.16.840.1.540740.3.579.2. 593 1966 Unknown [id number] 2.16.840.1.947371.3.579.2. 59 1966 Unknown [id number] 2.16.840.1.116876.3.579.2. 593 1966 Unknown [id number] 2.16.840.1.615772.3.579.2. 593 1966 Unknown [id number] 2.16.840.1.547800.3.579.2. 593 1966 Unknown [id number] 2.16.840.1.111481.3.579.2. 593 1966 Unknown [id number] 2.16.840.1.166540.3.579.2. 593 1966 Unknown [id number] 2.16.840.1.275907.3.579.2. 593 1966 Unknown [id number] 2.16.840.1.642998.3.579.2. 593 1966 Unknown [id number] 2.16.840.1.807096.3.579.2. 593 1966 Unknown [id number] 2.16.840.1.513756.3.579.2. 593 1966 Unknown [id number] 2.16.840.1.113218.3.579.2. 593 1966 Unknown [id number] 2.16.840.1.774038.3.579.2. 593 1966 Unknown [id number] 2.16.840.1.204245.3.579.2. 593 1966 Unknown [id number] 2.16.840.1.386365.3.579.2. 593 1966 Unknown [id number] 2.16.840.1.445249.3.579.2. 593 1966 Unknown [id number] 2.16.840.1.878726.3.579.2. 593 1966 Unknown [id number] 2.16.840.1.979217.3.579.2. 1286 1966 Unknown [id number] 2.16.840.1.130410.3.579.2. 1286 1966 Unknown [id number] 2.16.840.1.131475.3.579.2. 1286 1966 Unknown [id number] 2.16.840.1.528246.3.579.2. 1259 Unknown [id number] Unknown [id number] 2.16.840.1.768662.3.579.2. 531 Unknown [id number] 2.16.840.1.792212.3.579.2. 531 Unknown [id number] 2.16.840.1.087650.3.579.2. 531 Social History Date Type Detail Facility Start: 05-27-2022 End: 02-01-2025 Tobacco smoking status [facility] Never smoked tobacco (finding) [facility] Start: 1965 Sex Assigned At Female [facility] Start: 03-03-2024 End: 12-21-2024 Sex Assigned At [employer] Other Start: 04-19-2022 Tobacco smoking status [facility]oker [facility] History of tobacco use Current smoker [facility] History of tobacco use [facility] Start: 04-19-2022 End: 12-21-2024 Tobacco use and exposure Smokeless tobacco non-user [facility] Start: 03-03-2024 End: 12-21-2024 Alcoholic beverage intake Current drinker of alcohol (finding) [facility] Start: 03-03-2024 End: 12-21-2024 History of Social function [facility] Within the past 12 months we worried whether our food would run out before we got money to buy more. Never True [facility] Start: 04-19-2022 Tobacco Comment smoked when kathy flores was 18 for 6 months [facility] Start: 05-01-[address] [facility] Start: 1965 Sex assigned at Not on file [facility] Start: 09-06-2024 End: 12-14-2024 Sex Female (finding) [facility] Tobacco smoking status [facility] Tobacco smoking consumption unknown [facility] Start: 12-21-2024 Alcohol Comment occ [facility] NEGATED: Highlighted row N [facility] Goals Date Patient Goal Desired Activity /State [...] gland hypertrophy 12/20/2024 Situational anxiety 12/20/2024 bleeding ([facility]) 05/15/2022 Resolved Ambulatory Problems Diagnosis Date Noted [...] if no improvement. documented in this encounter [facility] 12-14-2024 Chief complaint+R dada for visit Narrative Sore Throat/ENT Referral December 14, 2024 9:27am Wellness/PAP December 20, 2024 10:3 7am Z01.419 December 20, 2024 10:4 5am EGD FOR GERD, HX OF COLON CANCER February 012024 8:20am Reason for Visit Admit Date GERD (gastroesophageal reflux disease) J 2024 9:27am Pharyngitis, chronic December 14, 2024 9:2 7am Globus sensation December 20, 2024 10:3 7am Screening mammogram for breast cancer Ju ne 2024 10:37am Wellness examination December 20, 2024 10: 37am [facility] Work Phone: 1([phone]) 141-831806-10-2025 Evaluation note* Diagnosis Onset Date Resolution Status Admit Date GERD (gastroesophageal reflu x disease) acute December 14, 2024 9:27am Pharyngitis, chronic acute December 14, 2024 9:27am Globus sensation acute December 10:37am Screening mammogram for binh st cancer acute December 20, 2024 10:37am Wellness examination acute December 20, 2024 10:37am [facility] Work Phone: 1(164) 460-752912-26-2024 Evaluation note* Diagnosis Onset Date Resolution Status Admit Date Osteoarthritis acute June 072023 10:57am Situational anxiety acute Decem rachid 2023 10:57am Abnormal LFTs acute September 06, 2024 1:19pm Chemotherapy-induced periphe ral neuropathy acute September 06, 2024 1:19pm Colon cancer acute September 06, 1:19pm Encounter for chemotherapy management acute September 06, 2024 1:19pm [facility] Work Phone: 1(192) 770-553609-19-2024 History of Present illness Narrative* Masha Richardson, OLIVIA-PRESSROOM SUPERVISOR - 03/25/2024 11:00 AM EDT Subjective Marysol [...] of removal of Port-a-Cath [Z98.890] RAEGAN TAYLOR [facility] General Surgery Tower/[place] This note was created with the assistance of a speech recognition program. While intending to generate a timely document that accurately reflects the content of the visit, no guarantee can be provided that every grammatical or spelling mistake has been or will be identified or corrected. Thank you for your understanding. RAEGAN Taylor 03/25/24 1143 [facility] History of Present illness Narrative* Clint Jean Baptiste, DO - 03/15/2024 1:30 PM EDT Patient [...] weeks for suture removal. [facility] History of Present illness Narrative* Clint Jean Baptiste DO - 03/03/2024 10:15 AM EDT Images from the original note were not included. [facility] [id number] Progress NOTE CHIEF COMPLAINT Chief Complaint Patient [...] by me April 10, 2022 at the [facility]. Her last colonoscopy was in May, and was normal. 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 MEDICATION Current Outpatient Medications: brimonidine (ALPHAGAN) [...] by mouth daily., Disp: , Rfl: omega 3-clh-kee-fish oil (Fish OiL) 300-1,000 mg capsule, Take by mouth., Disp: , Rfl: omeprazole (PriLOSEC) 20 mg capsule, PATIENT REPORTS NEEDED , Disp: , Rfl: ALLERGY Allergies Allergen Reactions Hydrocodone Nausea And Vomiting Patient reports it was many years ago Codeine GI Disturbance MEDICAL HISTORY Past Medical History: Diagnosis Date Colon cancer ([facility]) Female pelvic congestion syndrome 02/20/2023 Glaucoma of both eyes bleeding SURGICAL HISTORY Past Surgical History: Procedure Laterality Date SECTION HERNIA REPAIR inguinal hernia LEFT COLECTOMY SIGMOID COLON RESECTION BY DR JEAN BAPTISTE, AT [facility] WISDOM TOOTH EXTRACTION SOCIAL HISTORY Social [...] patient/family/caregiver Referring and communicating with other health health care marketing manager History of colon cancer [Z85.038] Clint Jean Baptiste DO This note was created with the assistance of a speech recognition program. While intending to generate a timely document that accurately reflects the content of the visit, no guarantee can be provided that every grammatical or spelling mistake has been or will be identified or corrected. Thank you for your understanding. [facility] [id number] Evaluation note* Encounter Date Diagnosis Assessment Notes [...] for PT printed and given to pt. [employer] Other 09-18-2023 Progress note Author Isaías Jordan [facility] March 24, 2023 11:05am Note Date/Time March 24, 2023 10:55am [facility] [address] [address] Hem/Onc Follow Up Note - OP Signed Patient: Marysol Gardner MR#: [id number] : 1965 Acct:[id number] Age/Sex: 57 / F Type: REG RCR [...] prior to f/u. f/u with me or traffic incident management manager in . renew her celebrex prescription. - History of Present Illness Chief Complaint: Patient is here for a 5 month follow up with labs and outside notes and radiology for review. 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 Labs reviewed on patient's chart from [facility] - no significant cytopenias or electrolyte, renal/hepatic [...] Also engorged periuterine vessels. She has seen computer systems engineer. she had transvaginal ultrasound. This will be monitored. Her TOOL GRINDER OPERATOR EXTERNAL has offered her a dexa scan. Her [...] for coordination of care (as documented) and mron-fw-wltz counseling of patient and/or family. [facility] - Medical History Medical History: [...] % (Auto) 47.6, Lymph % (Auto) 39.4, [place] % (Auto) 9.0, Eos % (Auto) 2.8, Baso % (Auto) 1.2, Nucleat RBC Rel Count 0.1, Neut # (Auto) 2.4, Lymph # (Auto) 2.0, Gladwin # (Auto) 0.5, Eos # (Auto) 0.1, [...] by Isaías Jordan II, DO> 03/24/23 1105 [facility] Work Phone: 1(138) 238-460204-17-2023 Progress note Author Isaías Jordan [facility] October 21, 2022 8:50am Note Date/Time October 21, 2022 8:3 8am [facility] [place] [id number] Hem/Onc Follow Up Note - OP Signed Patient: Marysol Gardner MR#: [id number] : 1965 Acct:[id number] Age/Sex: 57 / F Type: REG RCR Copies to: MD Clint Bernstein,DO~ Date of Service: 10/21/2022 Time of Service: [...] 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 Labs reviewed on patient's chart from [facility] - no significant cytopenias or electrolyte, renal/hepatic [...] for coordination of care (as documented) and myto-yt-wpab counseling of patient and/or family. [facility] - Medical History Medical History: [...] by Isaías Jordan II, DO> 10/21/22 0850 [facility] Work Phone: 1(480) 970-625202-27-2023 Progress note Author Isaías Jordan [facility] September 02, 2022 9:09am Note Date/Time September 02, 2022 8:58am [facility] [place] [address] Hem/Onc Follow Up Note - OP Signed Patient: Marysol Gardner MR#: [id number] : 1965 Acct:[id number] Age/Sex: 57 / F Type: REG RCR [...] 4 or 6 weeks with me or traffic incident management manager. - History of Present Illness Chief Complaint: Patient is here for a 2 week follow up with outside labs for review, prior to treatment today. States she is feeling remarkably better. 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 Labs reviewed on patient's chart from [facility] - no significant cytopenias or electrolyte, renal/hepatic [...] for coordination of care (as documented) and gfly-vo-ahbk counseling of patient and/or family. [facility] - Medical History Medical History: [...] by Isaías Jordan II, DO> 09/02/22 0909 [facility] Work Phone: 1(360) 883-600202-13-2023 Hospital Discharge instructionsAmbulatory Orders* Proceed with Treatment Time Frame: 08/19/22, Location: Determined By Patient [facility] Work Phone: 1([phone]) 518-352402-13-2023 Hospital Discharge instructionsAmbulatory Orders* Proceed with Treatment Time Frame: 08/19/22, Location: Determined By Patient * Proceed with Treatment Time Frame: 09/02/22, Location: Determined By Patient * RISE Order Time Frame: 1 Week, Location: Determined By Patient [facility] Work Phone: 1(684) 928-521702-13-2023 Progress note Author Dayan Magallon [facility] August 19, 2022 11:20am Note Date/Time August 19, 2022 11:14am [facility] [place] [id number] Hem/Onc Follow Up Note - OP Signed Patient: Marysol Gardner MR#: [id number] : 1965 Acct:[id number] Age/Sex: 57 / F Type: REG RCR Copies to: MD Clint Bernstein,DO~ Subjective Date/Time of Service: Date of Service: 08/19/2022 Time of Service: 11:12 Chief Complaint: Patient is here for a 1 month follow up with labs for review, prior to treatment today. No concerns voiced. 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 Labs reviewed on patient's chart from [facility] - no significant cytopenias or electrolyte, renal/hepatic [...] 10 point review of systems is negative. [facility] - Medical History Medical History: [...] for coordination of care (as documented) and xhjd-wn-mtkh counseling of patient and/or family. Dictated By: Dayan Magallon APRN DD/ 11 Signed By: <Electronically signed by OLIVIA Magallon> 08/19/22 1120 [facility] Work Phone: 1(554) 585-960601-16-2023 Progress note Author Dayan Magallon [facility] July 22, 2022 11:46am Note Date/Time July 22, 2022 1 1:36am [facility] [place] [address] Hem/Onc Follow Up Note - OP Signed Patient: Marysol Gardner MR#: [id number] : 1965 Acct:[id number] Age/Sex: 57 / F Type: REG RCR Copies to: MD Clint Bernstein,DO~ Subjective Date/Time of Service: Date of Service: 07/22/2022 Time of Service: 11:34 Chief Complaint: Patient is here today for a one month follow up visit for coloncancer and go over labs. 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 Labs reviewed on patient's chart from [facility] - no significant cytopenias or electrolyte, renal/hepatic [...] 10 point review of systems is negative. [facility] - Medical History Medical History: [...] for coordination of care (as documented) and xadw-lm-zxwk counseling of patient and/or family. Dictated By: Dayan Magallon APRN DD/ 1134 Signed By: <Electronically signed by OLIVIA Magallon> 07/22/22 1146 [facility] Work Phone: 1([phone]) 621-714612-19-2022 Progress note Author Isaías Jordan [facility] June 24, 2022 9:49am Note Date/Time June 24, 2022 9:42am [facility] [place] [address] Hem/Onc Follow Up Note - OP Signed Patient: Marysol Gardner MR#: [id number] : 1965 Acct:[id number] Age/Sex: 57 / F Type: REG RCR [...] cotn folfox q2wks. f/u with me or traffic incident management manager in a month. cbc, cmp on treatemet days. cea prior to f/u. 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 Labs reviewed on patient's chart from [facility] - no significant cytopenias or electrolyte, renal/hepatic [...] for coordination of care (as documented) and bigl-co-bxpf counseling of patient and/or family. [facility] - Medical History Medical History: [...] Dictated By: Isaías Jordan II, DO DD/ Signed By: <Electronically signed by Isaías Jordan II, DO> 06/24/22 0949 [facility] Work Phone: 1([phone]) 583-624811-28-2022 Progress note Author Dayan Magallon [facility] June 03, 2022 8:41am Note Date/Time June 03, 2022 8:14am [facility] [place] [address] Hem/Onc Follow Up Note - OP Signed Patient: Marysol Gardner MR#: [id number] : 1965 Acct:[id number] Age/Sex: 57 / F Type: REG RCR [...] 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 - plan Cycle 2, [...] for coordination of care (as documented) and wtqe-kt-ljah counseling of patient and/or family. 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 She began having irregular [...] 13, 2022, scope could not be passed vbahqv30 cm due to a tumor in the [...] for coordination of care (as documented) and kgsa-nf-vtao counseling of patient and/or family. [facility] - Medical History Medical History: [...] Dictated By: Isaías Jordan II, DO DD/ Signed By: <Electronically signed by Isaías Jordan II, DO> 05/27/22 0953 [facility] Work Phone: 1([phone]) 447-516510-28-2022 Progress note Author Isaías Jordan [facility] May 03, 2022 3:28pm Note Date/Time May 03, 2022 3 :00pm [facility] [place] [address] Hem/Onc Follow Up Note - OP Signed Patient: Marysol Gardner MR#: [id number] : 1965 Acct:[id number] Age/Sex: 57 / F Type: REG RCR Copies to: MD Clint Bernstein DO~ Date of Service: 05/03/2022 Time of Service: [...] 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 She began having irregular [...] for coordination of care (as documented) and pooi-ik-pbhr counseling of patient and/or family. [facility] - Medical History Medical History: [...] Pain 05/03/22 [History Confirmed 05/03/22] Dictated By: Isíaas Jordan II, DO DD/ 1449 Signed By: <Electronically signed by Isaías Jordan II, DO> 05/03/22 1528 [facility] Work Phone: 1(591) 898-261010-01-2022 History general Narrative - Reported* Type Description Date Medical History Colon cancer Medical History Pelvic congestion syndrome Surgical History Bowel resection 04/2022 Surgical History C -Section 2005 Surgical History Hernia repair 2001 Surgical History [place] teeth [employer] Other 09-07-2022 NoteOPERATIVE NOTE OPERATION DATE: 03/13/2022 [...] the abdomen and pelvis performed at the [facility], January 09, which was read as [...] diagnosis, then she will need surgical therapy.[id number] NotePatient Education Materials Follows: [facility], Adult [...] needed: ? Soap. ? Water. ? Hand geoscience laboratory technician. ? Bandage (dressing). ? Antibiotic ointment. ? Clean towel. How to take care of your cut Wash your hands with soap and water before touching your wound or changing your bandage. If soap and water are not available, use hand geoscience laboratory technician. If your doctor used stitches or yuridia: [...] off the skin. General instructions ? Take hssg-xeo-xydizja and prescription medicines only as told by [...] anywhere on your body. (more content not included)...[facility] complaint+Reason for visit Narrative* Chief Complaint Admit Date Sore Throat/ENT Referral December 14, 2024 9:27am Reason for Visit Admit Date Pharyngitis, chronic December 14, 2024 9:2 7am [facility] Work Phone: evaluation note* Diagnosis Onset Date Resolution Status Colon cancer acute Encounter for chemotherapy management acute [facility] Work Phone: evaluation note* Diagnosis Onset Date Resolution Status Abnormal LFTs acute Chemotherapy-induced peripheral neuropathy acute Colon cancer acute Encounter for chemotherapy management acute [facility] Work Phone: evaluation noteNo assessment information available [facility] Work Phone: evaluation note* Diagnosis Onset Date Resolution Status Colon cancer acute Abnormal LFTs acute Chemotherapy-induced peripheral neuropathy acute Colon cancer acute Encounter for chemotherapy management acute Salivary gland hypertrophy a cute [facility] Work Phone: evaluation note* Diagnosis Onset Date Resolution Status Salivary gland hypertrophy a cute Abnormal LFTs acute Chemotherapy-induced peripheral neuropathy acute Colon cancer acute Encounter for chemotherapy management acute [facility] Work Phone: evaluation note* Diagnosis History of colon cancer- Primary Personal history of malignant neoplasm of large intestine documented [facility] Diagnosis History of colon cancer- Primary Personal history of malignant neoplasm of large intestine documented in this encounter [facility]* Diagnosis History of removal of Haku-l-Cghh- Primary History of colon cancer Personal history of malignant neoplasm of large intestine documented in this encounter [facility]* Diagnosis Onset Date Resolution Status Admit Date Pharyngitis, chronic acute December 14, 2024 9:27am [facility] Work Phone: evaluation note* Diagnosis Globus sensation- Primary Gastrointestinal malfunction arising from mental factors LPRD (laryngopharyngeal reflux disease) Acute laryngitis, without mention of obstruction documented in this encounter [facility]* Proceed with Treatment Time Frame: 08/19/22, Location: Determined By Patient [facility] Work Phone: Hospital Discharge instructionsAmbulatory Orders* Referral to ENT Time Frame: 11/17/23, Location: None [facility] Work Phone: Hospital Discharge instructionsAmbulatory Orders* Referral to ENT Time Frame: 12/14/24, Location: None [facility] Work Phone: Hospital Discharge instructions Additional Instructions DISCHARGE INSTRUCTIONS FOR UPPER ENDOSCOPY WHAT TO EXPECT: - You may feel full, gassy or cramping after your procedure. In some cases, this may be from a few hours to a day. Walking may help relieve the discomfort. - Your throat may feel sore today from the scope that the doctor passed through your throat to visualize your stomach. Take a throat lozenge or suck on ice to ease the discomfort. - You may notice some streaks of blood in your sputum if the doctor has taken a biopsy. - You should begin to recover from anesthesia within 1 hour of the procedure, however may feel groggy for the next 24 hours. DO's AND DON'Ts: - Call your doctor right away if you have a hard abdomen, severe pain, vomiting or if you cough up large amounts of blood. - Call your doctor if you develop any rashes, hives or difficulty breathing. - If you take 81 mg aspirin for your heart it is safe to resume this medication. - If you take other blood thinner medications your doctor will instruct you when these can safely be resumed. - Do NOT drive for 24 hours. - Do NOT operate machinery such as power tools, Fanli websiten mowers, snow Simpli.fiwers, sewing machines, etc. for 24 hours. - Avoid alcoholic beverages and drugs for allergies, nerves, or sleep. - Do NOT stay alone. Do NOT leave your child unattended. - Do NOT make important personal or business decisions or sign any legal documents. - Eat solid foods and drink liquids in smaller amounts than usual until normal appetite returns. If you should experience an upset stomach, liquids high in sugar content (soda, Matthew-Aid, non-acid juices) are recommended. - Do NOT smoke. - Do take it easy today. You need not stay in bed, but avoid strenuous activities such as jogging or working out. FOLLOW UP & RECOMMENDATIONS: -Please call the office and make a follow up appointment to see me if symptoms persist -Notify the doctor if you have any problems. -Follow up with PCP. -Office number [phone]. [facility] Work Phone: InstructionsNot on filedocumented in this encounter [facility]ructionsNot on filedocumented in this encounter [facility]ructionsNot on filedocumented in this encounter 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 Labs reviewed on patient's chart from [facility] - no significant cytopenias or electrolyte, renal/hepatic issues. - Summary of Therapies Summary of Therapies: FOLFOX chemotherapy (adjuvant) 1. Cycle 1, Day 1: 05/27/2022 Subjective/ROS - Narrative: As per the HPI, otherwise 10 point review of systems is negative. 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 - plan Cycle 2, [...] for coordination of care (as documented) and nxls-aq-lqts counseling of patient and/or family. Dictated By: Dayan Magallon APRN DD/ 3 Signed By: <Electronically signed by OLIVIA Magallon> 06/03/22840 [facility] Work Phone: Progress note Author Isaías Jordan [facility] June 24, 2022 9:49am Note Date/Time June 24, 2022 9:42am [facility] [place] [address] Hem/Onc Follow Up Note - OP Signed Patient: Marysol Gardner MR#: [id number] : 1965 Acct:[id number] Age/Sex: 57 / F Type: REG RCR Copies to: MD Clint Bernstein,~ Date of Service: 06/24/2022 Time of Service: [...] cotn folfox q2wks. f/u with me or traffic incident management manager in a month. cbc, cmp on treatemet days. cea prior to f/u. 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 Labs reviewed on patient's chart from [facility] - no significant cytopenias or electrolyte, renal/hepatic [...] for coordination of care (as documented) and clwi-mi-fmqu counseling of patient and/or family. [facility] - Medical History Medical History: [...] Dictated By: Isaías Jordan II, DO DD/ 9 Signed By: <Electronically signed by Isaías Jordan II, DO> 06/24/22 0949 [facility] Work Phone: Progress note Author Dayan Magallon [facility] July 22, 2022 11:46am Note Date/Time July 22, 2022 1 1:36am [facility] [place] [address] Hem/Onc Follow Up Note - OP Signed Patient: Marysol Gardner MR#: [id number] : 1965 Acct:[id number] Age/Sex: 57 / F Type: REG RCR Copies to: MD Clint Bernstein,DO~ Subjective Date/Time of Service: Date of Service: 07/22/2022 Time of Service: 11:34 Chief Complaint: Patient is here today for a one month follow up visit for coloncancer and go over labs. 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 Labs reviewed on patient's chart from [facility] - no significant cytopenias or electrolyte, renal/hepatic [...] 10 point review of systems is negative. [facility] - Medical History Medical History: [...] for coordination of care (as documented) and zpjo-xz-cpfh counseling of patient and/or family. Dictated By: Dayan Magallon APRN DD/ 1134 Signed By: <Electronically signed by OLIVIA Magallon> 07/22/22 1146 [facility] Work Phone: Progress note Author Isaías Jordan [facility] September 02, 2022 9:09am Note Date/Time September 02, 2022 8:58am [facility] [place] [address] Hem/Onc Follow Up Note - OP Signed Patient: Marysol Gardner MR#: [id number] : 1965 Acct:[id number] Age/Sex: 57 / F Type: REG RCR [...] 4 or 6 weeks with me or traffic incident management manager. - History of Present Illness Chief Complaint: Patient is here for a 2 week follow up with outside labs for review, prior to treatment today. States she is feeling remarkably better. 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 Labs reviewed on patient's chart from [facility] - no significant cytopenias or electrolyte, renal/hepatic [...] for coordination of care (as documented) and kmor-gu-dary counseling of patient and/or family. [facility] - Medical History Medical History: [...] by Isaías Jordan II, DO> 09/02/22 0909 [facility] Work Phone: Progress note Author Isaías Jordan [facility] January 19, 2024 12:05pm Note Date/Time January 19, 2024 11:[address] [place] [address] [facility] [place] [address] Cancer Center Note Signed Patient: Marysol Gardnre MR#: [id number] : 1965 Acct:[id number] Age/Sex: 58 / F Type: REG AMB Date of Service: 01/19/24 Copies to: Sandro Chin MD~ Assessment & Plan A/P Patient Instructions: ct c/a/p with contrast in 6 months and f/u after. cbc, cmp, cea prior to contrast. refer for port removal. 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 Labs reviewed on patient's chart from [facility] - no significant cytopenias or electrolyte, renal/hepatic [...] from visiting her mother and family in [place]. She has no neuropathy at all. last [...] Also engorged periuterine vessels. She has seen computer systems engineer. she had transvaginal ultrasound. This will be monitored. Her TOOL GRINDER OPERATOR EXTERNAL has offered her a dexa scan. Her [...] january with no evidence recurrence. done at [place]. Intake Vitals/Pain Assessment 01/19/24 11:22 Height 5 [...] latanoprost 0.005% 1 drp Eye-Both QPM omega 9-oqq-lyz-fish oil 300-1,000 mg (Fish Oil) 1 cap [...] No concerns voiced at time of intake. PMFSH History Attestation statement: The following information was validated with the patient. Medical History Medical History delivery delivered Colon cancer Cancer (03/26/22) COVID bleeding Glaucoma of both eyes Surgical History Surgical History [place] teeth extracted S/P hernia repair History of [...] by Isaías Jordan II, DO> 01/19/24 1205 [facility] Work Phone: Reason for referral (narrative)No reason for referral information [facility] Work Phone: Summary Purpose Family History No [...] demond mother Diabetes mellitus Unknown Dementia Unknown Myocardial infarction Unknown Glaucoma Unknown Hypertension Unknown Unknown Heart disease Unknown father Parkinsonism Unknown brother Hypertension Unknown sister Hypertension Unknown Malignant neoplasm of pancreas Unknown Advance Directives No Advanced Directives Records [...] 1:19 pm Encounter for chemotherapy management [facility] 2024 1:19pm Additional Source Comments INFORMATION SOURCE (unrecogn ized section and content) DATE CREATED AUTHOR 05/02/2021 [facility] DATE CREATED AUTHOR AUTHOR'S ORGANIZ ATION 11/17/2022 [facility] DATE CREATED AUTHOR AUTHOR'S ORGANIZ ATION 03/27/2024 [facility] DATE CREATED AUTHOR AUTHOR'S ORGANIZ ATION 12/23/2024 [facility] EPIC DATE CREATED AUTHOR AUTHOR'S ORGANIZ ATION 03/13/[address] [facility] Care Teams (unrecognized sec tion and content) [...] January 19, 2024 Clint Jean Baptiste , DO Referring Provider Active Start: January 19, [...] Dates NON STAFF Primary Care Provider Active Wire Spring Relay Adjuster Relationship Specialty Start Date End Date Sandro Chin MD [address] [place] [address] PCP - General Family Medicine 03/19/23 Wire Spring Relay Adjuster Relationship Specialty Start Date End Date Sandro Chin MD [address] [place] [id number] PCP - General Family Medicine 03/19/23 Team [...] Care Provider Active Start: September 06, 2024 Carlyn Turner APRN Attending Provider Acti ve Start: September 06, 2024 Team Status: Inactive Member Role Status Dates Sandro Chin MD Primary Care Provide r, Attending Provider Active Start: December 14, 2024 End: December 14, 2024 Wire Spring Relay Adjuster Relationship Specialty Start Date End Date Sandro Chin MD [address] [place] [address] [phone] PCP - General Family Medicine 12/14/24 Wire Spring Relay Adjuster Relationship Specialty Start Date End Date Sandro Chin MD [address] [place] [phone] PCP - General Family Medicine 12/14/24 Team Status: Inactive Member Role Status Dates Sandro Chin MD Primary Care Provider Active Start: December 14, 2024 End: December 14, 2024 Sandro Chin MD Attending Provider Active St art: December 14, 2024 End: December 14, 2024 Team Status: Inactive Member Role Status Dates Sandro Chin MD Primary Care Provider Active Start: December 20, 2024 End: December 20, 2024 Sandro Chin MD Attending Provider Active St art: December 20, 2024 End: December 20, 2024 Team Status: Active Member Role Status Dates Sandro Chin MD Primary Care Provider Active Start: December 25, 2024 Sandro Chin MD Attending Provider Active St art: December 25, 2024 Team Status: Active Member Role Status Dates Sandro Chin MD Primary Care Provider Active Start: February 01, 2025 Roz L Ly , DO Attending Provider Active St art: February 01, 2025 Roz L Ly , DO Other Provider Active Start: February 01, 2025 Goals (unrecognized section and content) Goals may [...] content) Reason Comments PORT REMOVAL PORT REMOVAL, DENISE T HOPING TO HAVE PROCEDURE DONE 03/24/24, [...] Otolaryngology Diagnoses Other seasonal allergic rhinitis Procedures SC UNLISTED EVALUATION AND MANAGEMENT SERVICE [facility] [address] [place] [address] Phone: tel: fax: Constantino Martinez MD [address] [place] [address] Phone: tel: fax: Referral ID Status Reason Start Date Expiration Date Visits Re quested Visits Authorized [id number] Closed 12/14/2024 06/12/2025 1 1 FOR RECORDS [...] BE BASED ON THE PRIMARY CLINICAL RECORDS. [facility] [employer] [facility]. provides no warranty or guarantee of the accuracy or completeness of information in this document.
[2025-03-17 12:36] LABS: Alanine Aminotransferase 24 U/L (14-59); Albumin Globulin Ratio 1.0; Albumin Level 3.8 g/dL (3.4-5.0); Alkaline Phosphatase 81 U/L (46-116); Anion Gap 11.6; Aspartate Amino Transferase 22 U/L (15-37); Blood Urea Nitrogen 13.0 mg/dL (7.0-18.0); Calcium 9.1 mg/dL (8.5-10.1); Carbon Dioxide 27.3 mmol/L (21.0-32.0); Chloride 105 mmol/L (98-107); Estimated GFR (African America >60 (>=60 mL/min/1.73m^2); Estimated GFR (Non-African Ame >60 (>=60 mL/min/1.73m^2); Globulin 3.7 g/dL; Glucose 100 mg/dL (74-106); Potassium 3.9 mmol/L (3.5-5.1); Sodium 140 mmol/L (136-145); Total Protein 7.5 g/dL (6.4-8.2)
[2025-03-18 04:07] LABS: CEA 35.0 ng/mL (0.0-4.7)
== END 2025-03-17 11:47 | disposition home or self-care (01) ==
LOC: LAB 11:47
PROVIDERS: PCP Family Medicine; Visit Provider Internal Medicine
DX: Z01.89 Encounter for other specified special examinations (principal); C18.9 Malignant neoplasm of colon, unspecified; R91.8 Other nonspecific abnormal finding of lung field
CPT/HCPCS: 36415; 71260; 74177; 80053; 82378; 85025; Q9967

== ENCOUNTER 2025-04-08 12:00 | Outpatient (OUT) | payer BC, SELFPAY ==
--- OUTSIDE RECORDS SUMMARY | 2025-04-08 12:08 | XMS_ITS | CCD ---
Author Organization [facility] Care Team Providers Care 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 Name Role Phone DO Isaías Jordan II Attending Provider DO Clint Jean Baptiste Referring Provider MD Sandro Chin Primary Care Provider DO Isaías Jordan II Attending Provider [phone] NON STAFF Primary Care Provider DO Clint Amos Referring Provider MD Sandro Chin Primary Care Provider DO Clint Jean Baptiste Referring Provider MD Sandro Chin Primary Care Provider DO Clint Jean Baptiste Referring Provider MD Sandro Chin Primary Care Provider CHIQUISICZ, ISAÍAS J Admitting Unavailable ADAMOWICZ, ISAÍAS J Attending Unavailable DR SANDRO CHIN Primary Care Unavailable CHIQUISICZ, ISAÍAS Seals Consulting Unavailable DR SANDRO CHIN Primary Care Unavailable ADAMOWICZ, ISAÍAS J Admitting Unavailable ADAMOWICZ, ISAÍAS J Attending Unavailable ADAMOWICZ, ISAÍAS J Consulting Unavailable ADAMOWICZ, ISAÍAS J Admitting Unavailable ADAMOWICZ, ISAÍAS J Attending Unavailable DR SANDRO CHIN [...] ADAMOWICZ, ISAÍAS J Attending Unavailable CHIN, DR SADNRO Ernst Primary Care Unavailable ADAMOWICZ, ISAÍAS J [...] ., DR CLINT Ernst Consulting Unavaila ble ZIEBIVONNE, DR NEDA Gallo Consulting Unavailable ADAMOWICZ, ISAÍAS [...] GRPAPA ., DR CLINT Ernst Attending Unavaila brent CHIN, DR SANDRO Ernst Primary Care Unavailable GRILLIS ., DR CLINT Ernst Consulting Unavaila ble GRILLIIgnacio ., DR CLINT Ernst Admitting Unavaila ble GRILLIIgnacio ., DR CLINT Ernst Attending Unavaila brent CHIN, DR SANDRO Ernst Primary Care Unavailable GRILLIIgnacio ., DR CLINT Ernst Consulting Unavaila ble ZIEBER, DR NEDA Gallo Consulting Unavailable KODI, CANDELARIO Consulting Unavailable SHARP, BERTHA Consulting Unavailable KUCHIPUDI, JOLENE Consulting Unavailable GIUSEPPE, DR SANDRO Ernst Primary Care Unavailable ALONSO, IRVING Babin Admitting Unavailable ALONSO, IRVING Babin Attending Unavailable ALONSO, IRVING Babin Consulting Unavailable CHIN, DR SANDRO Ernst Primary Care Unavailable GRILLIS ., DR CLINT Ernst Consulting Unavaila ble HOY ., DR SHAHID Admitting Unavailable HOY ., DR SHAHID Attending Unavailable GRILLIS ., DR CLINT Ernst Procedure Practitioner U navailshannan GOODE ., DR SHAHID Consulting Unavailable NADERER, MINGO Lucero Consulting Unavailable MUKHREJEE, JOSHUA Consulting Unavailable MORGOS, SUZIE Consulting Unavailable SHARP, BERTHA Consulting Unavailable RAZIA, AUGUSTIN Consulting Unavailable GRILLIS ., DR CLINT Ernst Admitting Unavaila ble GRPAPA ., DR CLINT Ernst Attending Unavaila brent CHIN, DR SANDRO Ernst Primary Care Unavailable GRILLIIgnacio ., DR CLINT Ernst Consulting Unavaila ISAÍAS Kang Admitting Unavailable ISAÍAS JORDAN Attending Unavailable GIUSEPPE, DR SANDRO Ernst Primary Care Unavailable ISAÍAS JORDAN Consulting Unavailable Sandro Chin Unavailable DO Clint Jean Baptiste Referring Provider MD Sandro Chin Primary Care Provider [phone] OLIVIA Turner Attending Provider DO Clint Jean Baptiste Referring Provider [phone] MD Sandro Chin Primary Care Provider OLIVIA [...] Provider Sandro Chin MD Attending Provider Ly DORoz Attending Provider Ly DO Roz Ivory Other Provider Sandro Chin MD Primary Care Provider Sandro Chin MD Attending Provider Isaías Jordan DO Attending Provider Clint Jean Baptiste DO Referring Provider Carlyn Turner APRN Attending Provider Sandro Chin MD Primary Care Provider Sandro Chin Primary Care Unavailable Salima Rzo L Admitting Unavailable Salima Roz Ivory Attending Unavailable Sandro Chin Admitting Unavailable Sandro Chin Primary Care Unavailable Sandro Chin Attending Unavailable Isaías Jordan II Attending Unavaila ble Clint Jean Baptiste Referring Unavailable Sandro Chin Primary Care Unavailable Isaías Jordan II Admitting Unavaila ble Allergies Allergy Classification Reported Allergen(s) Allergy Type Date of Onset Reaction(s) Facility (17 sources) HYDROcodone; Translations: [Hydrocodone] Drug Allergy 2 Nausea And Vomiting [facility] (1 source) Misc-Food; Translations: [Misc-Food] Food allergy (disorder) [facility] Repository (8 sources) Codeine; Translations: [CODEINE] Drug Allergy 3 GI Disturbance, GI intolerance [facility] Repository Medications Current Medications Medication Drug Class(es) Dates Sig (Normalized) Sig (Original) acetaminophen 500 mg oral tablet (17 sources) Start: 05-03-2022 take 2 tablets by mouth once daily as needed for pain Acetaminophen 500 mg Tablet Active 1000 MG PO Daily as needed for Pain May 03, 2022 12:00am Complies with drug therapy Start: 05-03-2022 take 1000 mg by mout h once daily Acetaminophen Active 1000 MG PO Daily May 03, 2022 12:00am Beta-Glucan 500 mg capsule (1 source) Start: 04-04-2025 brimonidine tartrate 2 mg/ml ophthalmic solution (20 sources) alpha-Adrenergi c Agonist Start: 11-06-2024 take 1 drop(s) into [...] eye Active cholecalciferol 0.025 mg oral capsule (17 sources) Vitamin D Start: 05-27-2022 take 1 [...] / eicosapentaenoic acid 180 mg oral capsule (3 sources) Start: 01-19-2024 omega-3 1000 MG capsule capsule Take by mouth 01/19/2024 Active [place] 9-Uak-Nfh-Fish Oil (7 sources) Start: 01-19-2024 take 300-1000 mg by mouth once daily Start: 01-19-2024 take 300-1000 mg by mouth once daily [place] 5-Cuf-Rzg-Fish Oil (Fish Oil) 300-1,000 mg capsule Active 1 CAP PO Daily January 19, 2024 12:00am Complies with drug therapy Start: 01-19-2024 take 300-1000 mg by mouth once daily [place] 4-Pkp-Ysb-Fish Oil (Fish Oil) 300-1,000 mg capsule Active 1 CAP PO Daily January 18, 2024 11:00pm Start: 01-19-2024 take 300-1000 mg by mouth once daily [place] 0-Was-Wam-Fish Oil (Fish Oil) 300-1,000 mg capsule Active [...] eye Active famotidine 20 mg oral tablet (3 sources) Histamine-2 Receptor Antagonist Start: 12-21-2024 End: 03-21-2025 take 1 tablet by mouth at bedtime famotidine (Pepcid) 20 MG tablet Indications: LPRD (laryngopharyngeal reflux disease) Take 1 tablet (20 mg) by mouth at bedtime 90 tablet 12/21/2024 Active latanoprost 0.05 mg/ml ophthalmic solution (20 [...] ORAL) Take by mouth daily. Active omega 8-lte-zux-fish oil (Fi sh OiL) 300-1,000 mg capsule (3 sources) omega 3-dha-epa- fish oil (Fish OiL) 300-1,000 mg capsule Take by mouth. Active omeprazole 20 mg delayed rel ease oral capsule (18 sources) Proton Pump Inhibitor St ar t: 3- 23 En d: 7- 25 take 1 capsule by mouth every [...] pantoprazole 40 mg delayed release oral tablet (10 sources) Proton Pump Inhibitor Start: 03-10-2025 take 1 tablet by mouth once daily Start: 12-14-2024 End: 03-10-2025 take 1 tablet by mouth once daily Pantoprazole 40 mg tablet,delayed release (DR/EC) Discontinued 40 MG PO Daily December 14, 2024 12:00am March 10, 2025 9:29am sulfamethoxazole 800 mg / trimethoprim 160 mg [...] acid 1000 mg extended release oral tablet (17 sources) Vitamin C Start: 05-27-2022 End: 11-17-2023 [...] Start: 05-27-2022 take 1 capsule by mo [facility] once daily Ascorbic Acid (Vitamin C) Active 1 CAP PO Daily May 27, 2022 1:00am Start: 05-27-2022 take 1 capsule by mo uth once daily Ascorbic Acid (Vitamin C) Active 1 CAP PO Daily May 27, 2022 12:00am Carica Papaya (Papaya Enzyme) Tablet (12 sources) Start: 08-19-2022 End: 06-25-2023 take 1 [...] 11:38am Start: 08-19-2022 [facility] Carica Papaya (Papaya Enzyme) Tablet Active 1 TAB PO Daily August 19, 2022 12:00am celecoxib 200 mg oral capsule (20 sources) Nonsteroidal Anti-inflammatory Drug Start: 02-19-2023 End: 04-04-2025 take 1 capsule by mouth once daily Celecoxib (Celebrex) 200 mg capsule Discontinued 200 MG PO Daily 60 July 01, 2024 12:29pm April 04, 2025 1:18pm glucosamine 500 mg oral tablet (7 sources) Start: 01-19-2024 End: 07-01-2024 take 1 tablet by mouth once daily Glucosamine Hcl 500 mg tablet Discontinued 500 MG PO Daily January 19, 2024 12:00am July 01, 2024 12:06pm administer with a meal Tazjc-Dj-0-Dha-Ep o-Sbtdosw-Gpl (11 sources) Start: 05-02-2022 End: 05-03-2022 take 3 capsules by mouth once daily Xwlmz-Xy-1-Dha-Ep h-Pjrbrik-Pvo Discontinued 1 CAP PO Daily May 02, 2022 12:00am May 03, 2022 2:39pm Start: 05-02-2022 End: 05-03-2022 take 3 capsules by mouth once daily Byatm-Sg-0-Dsj-Xbl-Kczttcp-Ast Discontin ued 1 CAP PO Daily May 01, 2022 11:00pm May 03, 2022 1:39pm Qdvae-Wx-9-Veq-Cba-Icwtfsi-A st 1,936-524-18-80 mg Capsule (6 sources) Start: 05-02-2022 End: 05-03-2022 Ebmqk-Bb-4-Hvb-Lnn-Vdmapls-A st 1,218-208-64-80 mg Capsule Discontinued 1 CAP PO Daily May 02, 2022 12:00am May 03, 2022 2:39pm Start: 05-02-2022 End: 05-03-2022 Rhzwm-He-6-Zmh-Jqy-Fpauzdi-A st 1,923-126-64-80 mg Capsule Discontinued 1 CAP PO Daily May 01, 2022 11:00pm May 03, 2022 1:39pm loratadine 10 mg oral tablet (8 sources) Start: 12-14-2024 End: 01-20-2025 take 1 [...] (Therapy completed) ondansetron 8 mg oral tablet (20 sources) Serotonin-3 Receptor Antagonist Start: 05-03-2022 End: 03-03-2024 take 1 tablet by mouth every eight hours as needed for nausea Ondansetron Hcl 8 mg tablet Discontinued 8 MG PO Q8H as needed for Nausea May 03, 2022 12:00am March 24, 2023 10:40am prochlorperazine 10 mg oral tablet (12 sources) Phenothiazine Start: 08-05-2022 End: 03-24-2023 take [...] 24 tablet 03/19/2023 03/02/2024 Discontinued Vit C-E-Zinc Hf-Xvbb-Kaw-Zeax (Icaps Areds2) 250 mg-200 unit -12.5 mg-1 mg Capsule (10 sources) Start: 06-25-2023 End: 11-17-2023 take 2 capsules by mouth once daily Vit C-E-Zinc Fj-Dkcc-Nld-Zeax (Icaps Areds2) 250 mg-200 unit -12.5 mg-1 mg Capsule Discontinued 2 CAP PO Daily June 25, 2023 12:00am November 17, 2023 8:48am Start: 06-25-2023 End: 11-17-2023 take 2 capsules by mouth once daily Vit C-E-Zinc Vq-Zmth-Nwq-Zeax (Icaps Areds2) 250 mg-200 unit -12.5 mg-1 mg Capsule Discontinued 2 CAP PO Daily June 25, 2023 1:00am November 17, 2023 9:48am Start: 06-25-2023 take 2 capsules by m outh once daily Vit C-E-Zinc Ks-Dlwp-Abn-Zeax (Icaps Areds2) 250 mg-200 unit -12.5 mg-1 mg Capsule Active 2 CAP PO Daily June 25, 2023 1:00am Start: 06-25-2023 take 2 capsules by m outh once daily Vit C-E-Zinc Hw-Lqhm-Wsb-Zeax (Icaps Areds2) 250 mg-200 unit -12.5 mg-1 mg Capsule Active 2 CAP PO Daily June 25, 2023 12:00am Vitamin A-Vitamin C-Vit E-Min (Ocuvite) Tablet (17 sources) Start: 05-02-2022 End: 05-27-2022 take 1 [...] Problem Date Documented Date Episodic/Chronic Anxiety disorders (11 sources) Anxiety; Translations: [Other specified anxiety disorders] [...] ear Episodic Diseases of mouth; excluding dental (14 sources) Hypertrophy of salivary gland; Translations: [Hypertrophy of salivary gland] Onset: 12-20-2024 11-17-2023 Episodic E Codes: Cut/pierceb (1 source) Contact with contaminated hypodermic needle, initial encounter; Translations: [CNTCT CONTAMINAT HYPODRM NEEDL INIT] Onset: 09-18-2022 Episodic Esophageal disorders (7 sources) Laryngopharyngeal reflux; Translations: [Gastro-esophageal reflux disease without esophagitis] Onset: 02-01-2025 12-21-2024 Chronic Glaucoma (8 sources) Unspecified glaucoma; Translations: [Bilateral glaucoma] Onset: 04-22-2022 05-15-2022 Chronic Maintenance chemotherapy; radiotherapy (20 sources) Patient encounter status; Translations: [Encounter for antineoplastic chemotherapy] Onset: 12-20-2024 06-03-2022 Chronic Open wounds of extremities (4 sources) Puncture wound without foreign body of left index finger without damage to nail, initial encounter; Translations: [PW W/O FB LT IF W/O DMG NAIL INIT] Onset: 09-01-2022 Episodic Osteoarthritis (11 sources) Osteoarthritis; Translations: [Unspecified osteoarthritis, unspecified site] Onset: 12-20-2024 07-01-2024 Chronic Other nervous system disorders (18 sources) Peripheral neuropathy due to and following chemotherapy; Translations: [Drug-induced polyneuropathy] Onset: 12-20-2024 07-22-2022 Chronic Other nervous system disorders (6 sources) Drug-induced polyneuropathy; Translations: [Polyneuropathy due to other toxic agents] 08-19-2022 Chronic Other upper respiratory disease (10 sources) Chronic pharyngitis; Translations: [Chronic pharyngitis] Onset: 12-20-2024 12-14-2024 Chronic Other upper respiratory disease (2 sources) Chronic pharyngitis; Translations: [Chronic pharyngitis] 12-14-2024 Chronic Other upper respiratory disease (6 sources) Feeling of lump in throat; Translations: [...] Unclassified (1 source) PORT REMOVAL Onset: 03-03-2024 Unclassified (2 sources) C18.9 - Malignant neoplasm of colon, unspecified Unclassified (1 source) C18.9 - Malignant neoplasm of colon, unspecified,R91.8 - Other nonspecific abnormal finding of lung field Past or Other Problems Problem Classification Problem Date Documented Date Episodic/Chronic Abdominal pain (9 sources) Generalized abdominal pain; Translations: [Left lower quadrant pain] Onset: 01-09-2022 Episodic Other aftercare (1 source) Other retirement (current) drug therapy; Translations: [OTH MCC CURRENT DRUG THERAPY] Onset: 04-22-2022 Episodic Other circulatory disease (1 source) Elevated blood-pressure reading, without diagnosis of hypertension; Translations: [ELEVATED BP READING W/O DX HTN] Onset: 04-22-2022 Episodic Other complications of ; puerperium affecting management of mother (7 sources) hemorrhage; Translations: [Other immediate hemorrhage] Onset: 05-15-2022 05-15-2022 Episodic Other female genital disorders (7 sources) Pelvic congestion syndrome; Translations: [Other specified conditions associated with female genital organs and menstrual cycle] Onset: 02-20-2023 03-19-2023 Episodic Other nutritional; endocrine; and metabolic disorders (1 source) Abnormal weight loss; Translations: [ABNORMAL WEIGHT LOSS] Onset: 03-21-2022 Episodic Other screening for suspected conditions (not mental disorders or infectious disease) (20 sources) Liver function tests abnormal; Translations: [Other specified abnormal findings of blood chemistry] Onset: 12-20-2024 07-22-2022 Episodic Residual codes; unclassified (1 source) Past history of procedure; Translations: [Other specified postprocedural states] 03-24-2024 Episodic Screening and history of mental health and substance abuse codes (1 source) Personal history of nicotine dependence; Translations: [PERSONAL HISTORY OF NICOTINE DEPEND] Onset: 03-21-2022 Episodic Results Test Name Value Interpretation Reference Range Facility GLUCOSE POCT GLUCOMETERSon 0 03-30-2025 Glucose [Mass/Vol] 100 mg/dL [facility] Comment on above: Random Glucose Refer ence Range is dependent on time and content of last meal. Glucose of more than 200 mg/dL in a nonstressed, ambulatory subject supports the diagnosis of Diabetes Mellitus. [facility] Glucose Poct Glucometerson 0 03-30-2025 Glucose [Mass/Vol] 100 mg/dL Normal [facility] Comment on above: Result Comment: [place] Glucose Reference Range is dependent on time and content of last meal. Glucose of more than 200 mg/dL in a nonstressed, ambulatory subject supports the diagnosis of Diabetes Mellitus. PERFORMED BY: [place] [address] PATHOLOGIST LOCK PLATER CECY RODRIGUEZ M.D. Performed By: #### G CITLALLI #### Point of Care testing , PET tumor init tx strat sb-m ton 03-30-2025 PET tumor init tx strat sb-mt [facility] [place] [address] Nuclear Medicine Report Signed Patient: Marysol Gardner MR#: [id number] 22 : 1965 Acct:[id number] Age/Sex: 59 / F ADM Date: 03/30/25 Loc: Room: Type: [facility] Attending Dr: Carlyn Turner MEAT CUTTING TEACHER Copies to: Andres Wallis Jr, OLIVIA [place] II, DO Ordering Provider: Isaías Jordan II, DO Date of Service: 03/30/25 PET/PET tumor init tx strat sb-mt: C18.9 - Malignant neoplasm of colon, unspecified PET/CT FUSION IMAGING CLINICAL INFORMATION: Colon cancer with lung nodules. COMPARISON : Outside CT chest, abdomen and pelvis 03/17/2025 TECHNIQUE: Noncontrasted CT scan from the base of the skull to the upper thigh followed by PET imaging. Multiplanar PET/CT fusion images. Blood Glucose : 100 mg/dL The F-18 FDG 10.98mCi. FINDINGS: Neck: No focal abnormal activity. Chest:Bilateral pulmonary nodules, SUV max 4.4. Most of these are too small for PET CT characterization. No abnormal activity is seen involving the mediastinum or hilar regions. Abdomen/pelvis: Focal area of abnormal activity is seen involving the right lobe of the liver along the dome, SUV max of 4.2. Abnormal activity is seen involving the cervix, SUV max of 4.6. Abnormal activity is seen involving the anorectal region. SUV max of 4.8. Soft tissue/bones: No abnormal activity. CT findings: No pneumothorax. No pericardial or pleural effusions. No free air or free fluid. PET/PET tumor init tx strat sb-mt IMPRESSION: 1. Bilateral pulmonary nodules largest appear FDG avid suspicious for metastatic disease. 2. Abnormal activity is seen involving the cervix suspicious for malignancy. Correlation with physical exam is suggested. 3. Abnormal activity is seen involving the anorectal junction possibly relating to residual malignancy. Correlation with direct visualization is suggested. 4. Focal area of abnormal activity is seen involving the right lobe the liver along the dome. This may relate to the abnormality seen by CT. Complete evaluation with multiphase liver CT or MRI is recommended. Impression dictated by: Andres Wallis Jr., D.O. 03/30/2025 11:44 AM Dictation Location: [place] [address] Transcribed By: [facility] 03/30/25 1144 Dictated By: Andres Wallis Jr, DO 03/30/25 1134 Signed By: 03/30/25 1144 Normal [facility] Basophils Auto (Bld) [#/Vol] Ordered By: Isaías Jordan on 03-17-2025 Basophils (Bld) [#/Vol] 0.0 10 3/uL 0.0-0.1 [facility] Basophils/100 WBC Auto (Bld) Ordered By: Isaías Jordan on 03-17-2025 Basophils/100 WBC (Bld) 0.6 % 0.2-2.0 [facility] Eosinophils/100 WBC Auto (Bl d)Ordered By: Isaías Jordan on 03-17-2025 Eosinophils/100 WBC (Bld) 2.1 % 0.9-7.0 [facility] Erythrocyte distribution wid th Auto (RBC) [Ratio]Ordered By: Isaías Jordan on 03-17-2025 Erythrocyte distribution width (RBC) [Ratio] 13.2 % 11.0-15.0 [facility] Globulin Calc (S) [Mass/Vol] Ordered By: Isaías Jordan on 03-17-2025 Globulin (S) [Mass/Vol] 3.7 g/dL [facility] Glomerular filtration rate ( GFR) estimation in non- AmericanOrdered By: Isaías Jordan on 03-17-2025 GFR/1.73 sq M.predicted among non-blacks MDRD (S/P/Bld) [Vol rate/Area] mL/min/{1.73_m2} >=60 mL/min/1.7 3m 2 [facility] Hematocrit Auto (Bld) [Volum e fraction]Ordered By: Isaías Jordan on 03-17-2025 Hematocrit (Bld) [Volume fraction] 41.6 % 36.0-48.0 [facility] Hemoglobin [Mass/volume] in BloodOrdered By: Isaías Jordan on 03-17-2025 Hemoglobin (Bld) [Mass/Vol] 13.9 g/dL 12.0-16.0 [facility] Laboratory - Chemistry and C hemistry - challengeOrdered By: Isaías Jordan on 03-17-2025 Albumin [Mass/Vol] 3.8 g/dL 3.4-5.0 [facility] ALP [Catalytic activity/Vol] 81 U/L 46-116 [facility] ALT [Catalytic activity/Vol] 24 U/L 14-59 [facility] AST [Catalytic activity/Vol] 22 U/L 15-37 [facility] Bilirubin [Mass/Vol] 0.5 mg/dL 0.2-1.0 [facility] Calcium [Mass/Vol] 9.1 mg/dL 8.5-10.1 [facility] Chloride [Moles/Vol] 105 mmol/L 98-107 [facility] CO2 [Moles/Vol] 27.3 mmol/L 21.0-32.0 [facility] Creatinine [Mass/Vol] 0.57 mg/dL 0.55-1.02 [facility] GFR/1.73 sq M.predicted MDRD (S/P/Bld) [Vol rate/Area] mL/min/{1.73_m2} >=60 mL/min/1.7 3m 2 [facility] Glucose [Mass/Vol] 100 mg/dL 74-106 [facility] Potassium [Moles/Vol] 3.9 mmol/L 3.5-5.1 [facility] Protein [Mass/Vol] 7.5 g/dL 6.4-8.2 [facility] Sodium [Moles/Vol] 140 mmol/L 136-145 [facility] Urea nitrogen [Mass/Vol] 13.0 mg/dL 7.0-18.0 [facility] Urea nitrogen/Creatinine [Mass ratio] 22.8 mg/mg [facility] Laboratory - Hematology and Cell countsOrdered By: Isaías Jordan on 03-17-2025 Immature granulocytes/100 WBC (Bld) 0.2 % 0.0-0.5 [facility] Leukocytes [#/volume] correc audrey for nucleated erythrocytes in Blood by Automated counOrdered By: Isaías Jordan on 03-17-2025 WBC corrected for nucl RBC Auto (Bld) [#/Vol] 4.9 10 3/uL 4.0-11.0 [facility] Lymphocytes Auto (Bld) [#/Vo l]Ordered By: Isaías Jordan on 03-17-2025 Lymphocytes (Bld) [#/Vol] 1.5 10 3/uL 1.2-3.8 [facility] Lymphocytes/100 WBC Auto (Bl d)Ordered By: Isaías Jordan on 03-17-2025 Lymphocytes/100 WBC (Bld) 31.1 % 20.5-60.0 [facility] MCH Auto (RBC) [Entitic mass ]Ordered By: Isaías Jordan on 03-17-2025 MCH (RBC) [Entitic mass] 31.9 pg 26.7-34.0 [facility] MCHC Auto (RBC) [Mass/Vol]Or dered By: Isaías Jordan on 03-17-2025 MCHC (RBC) [Mass/Vol] 33.4 g/dL 29.9-35.2 [facility] MCV Auto (RBC) [Entitic vol] Ordered By: Isaías Jordan on 03-17-2025 MCV (RBC) [Entitic vol] 95.4 fL 81.0-99.0 [facility] Monocytes Auto (Bld) [#/Vol] Ordered By: Isaías Jordan on 03-17-2025 Monocytes (Bld) [#/Vol] 0.5 10 3/uL 0.3-0.8 [facility] Monocytes/100 WBC Auto (Bld) Ordered By: Isaías Jordan on 03-17-2025 Monocytes/100 WBC (Bld) 9.9 % 1.7-12.0 [facility] Neutrophils Auto (Bld) [#/Vo l]Ordered By: Isaías Jordan on 03-17-2025 Neutrophils (Bld) [#/Vol] 2.7 10 3/uL 1.4-6.5 [facility] Neutrophils/100 WBC Auto (Bl d)Ordered By: Isaías Jordan on 03-17-2025 Neutrophils/100 WBC (Bld) 56.1 % 43.0-75.0 [facility] No Panel InformationOrdered By: Isaías Jordan on 03-17-2025 Eosinophils # (Auto) 0.1 10 3/uL 0.0-0.7 [facility] Immature Granulocyte # (Auto) 0.01 10 3/uL 0.00-0.03 [facility] Platelet mean volume Auto (B ld) [Entitic vol]Ordered By: Isaías Jordan on 03-17-2025 Platelet mean volume (Bld) [Entitic vol] 10.4 fL 9.5-13.5 [facility] Platelets Auto (Bld) [#/Vol] Ordered By: Isaías Jordan on 03-17-2025 Platelets (Bld) [#/Vol] 206 10 3/uL 150-450 [facility] RBC Auto (Bld) [#/Vol]Ordere d By: Isaías Jordan on 03-17-2025 RBC (Bld) [#/Vol] 4.36 10 6/uL 4.20-5.40 [facility] Serum or plasma albumin/glob ulin mass ratioOrdered By: Isaías Jordan on 03-17-2025 Albumin/Globulin [Mass ratio] 1.0 {ratio} [facility] Serum or plasma anion gap de terminationOrdered By: Isaías Jordan on 03-17-2025 Anion gap [Moles/Vol] 11.6 mmol/L [facility] Pathology Request for Lab Co rpon 02-01-2025 Pathology Request for Lab Luzma Normal [facility] Comment on above: Order Comment: GI SP ECIMEN Result Comment: See report. Scanned copy available in EMR. PERFORMED BY: [place] [address] PATHOLOGIST LOCK PLATER CECY RODRIGUEZ M.D. Performed By: #### P ATH TO [facility] #### [address] Basophils Auto (Bld) [#/Vol] Ordered By: Sandro Chin on 12-25-2024 Basophils (Bld) [#/Vol] 0.0 10 3/uL 0.0-0.1 [facility] Basophils/100 WBC Auto (Bld) Ordered By: Sandro Chin on 12-25-2024 Basophils/100 WBC (Bld) 0.8 % 0.2-2.0 [facility] Cholesterol in LDL Calc [Mas s/Vol]Ordered By: Sandro Chin on 12-25-2024 Cholesterol in LDL [Mass/Vol] 157.0 mg/dL [facility] Comment on above: <100 mg/dl [id number] 0-129 mg/dl NEAR OR ABOVE [id number] mg/dl BORDERLINE [id number] mg/dl HIGH>190 mg/dl VERY HIGH Cholesterol in VLDL Calc [Ma ss/Vol]Ordered By: Sandro Chin on 12-25-2024 Cholesterol in VLDL [Mass/Vol] 14.0 mg/dL [facility] Eosinophils/100 WBC Auto (Bl d)Ordered By: Sandro Chin on 12-25-2024 Eosinophils/100 WBC (Bld) 1.5 % 0.9-7.0 [facility] Erythrocyte distribution wid th Auto (RBC) [Ratio]Ordered By: Sandro Chin on 12-25-2024 Erythrocyte distribution width (RBC) [Ratio] 13.4 % 11.0-15.0 [facility] Estimated glomerular filtrat ion rate (GFR) non- AmericanOrdered By: Sandro Chin on 12-25-2024 GFR/1.73 sq M.predicted among non-blacks MDRD (S/P/Bld) [Vol rate/Area] mL/min/{1.73_m2} >=60 mL/min/1.7 3m 2 [facility] Globulin Calc (S) [Mass/Vol] Ordered By: Sandro Chin on 12-25-2024 Globulin (S) [Mass/Vol] 3.5 g/dL [facility] Glucose mean value [Mass/vol ume] in Blood Estimated from glycated hemoglobinOrdered By: Sandro Chin on 12-25-2024 Average glucose Estimated from glycated hemoglobin (Bld) [Mass/Vol] 111 mg/dL [facility] Hematocrit Auto (Bld) [Volum e fraction]Ordered By: Sandro Chin on 12-25-2024 Hematocrit (Bld) [Volume fraction] 41.8 % 36.0-48.0 [facility] Hemoglobin A1c percentageOrd ered By: Sandro Chin on 12-25-2024 HbA1c (Bld) [Mass fraction] 5.5 % 4.5-6.2 [facility] Comment on above: ADA RECOMMENDED LIMI T 4.0 - 6.0ADA THERAPEUTIC TARGET < 7.0ACTION SUGGESTED> 7.0 Hemoglobin [Mass/volume] in BloodOrdered By: Sandro Chin on 12-25-2024 Hemoglobin (Bld) [Mass/Vol] 13.9 g/dL 12.0-16.0 [facility] Laboratory - Chemistry and C hemistry - challengeOrdered By: Sandro Chin on 12-25-2024 Albumin [Mass/Vol] 4.0 g/dL 3.4-5.0 [facility] ALP [Catalytic activity/Vol] 76 U/L 46-116 [facility] ALT [Catalytic activity/Vol] 24 U/L 14-59 [facility] AST [Catalytic activity/Vol] 14 U/L Low 15-37 [facility] Bilirubin [Mass/Vol] 0.6 mg/dL 0.2-1.0 [facility] Calcium [Mass/Vol] 9.6 mg/dL 8.5-10.1 [facility] Chloride [Moles/Vol] 106 mmol/L 98-107 [facility] Cholesterol [Mass/Vol] 219 mg/dL High <=200 [facility] Cholesterol in HDL [Mass/Vol] 48 mg/dL 40-60 [facility] Comment on above: > or =60 mg/dl - LOW CARDIOVASCULAR RISK<40 mg/dl - HIGH CARDIOVASCULAR RISK CO2 [Moles/Vol] 28.6 mmol/L 21.0-32.0 [facility] Creatinine [Mass/Vol] 0.67 mg/dL 0.55-1.02 [facility] GFR/1.73 sq M.predicted MDRD (S/P/Bld) [Vol rate/Area] mL/min/{1.73_m2} >=60 mL/min/1.7 3m 2 [facility] Glucose [Mass/Vol] 88 mg/dL 74-106 [facility] Potassium [Moles/Vol] 3.9 mmol/L 3.5-5.1 [facility] Protein [Mass/Vol] 7.5 g/dL 6.4-8.2 [facility] Sodium [Moles/Vol] 144 mmol/L 136-145 [facility] Triglyceride [Mass/Vol] 70 mg/dL <=150 [facility] Urea nitrogen [Mass/Vol] 19.0 mg/dL High 7.0-18.0 [facility] Urea nitrogen/Creatinine [Mass ratio] 28.4 mg/mg [facility] Laboratory - Hematology and Cell countsOrdered By: Sandro Chin on 12-25-2024 Immature granulocytes/100 WBC (Bld) 0.2 % 0.0-0.5 [facility] Leukocytes [#/volume] correc audrey for nucleated erythrocytes in Blood by Automated counOrdered By: Sandro Chin on 12-25-2024 WBC corrected for nucl RBC Auto (Bld) [#/Vol] 4.8 10 3/uL 4.0-11.0 [facility] Lymphocytes Auto (Bld) [#/Vo l]Ordered By: Sandro Chin on 12-25-2024 Lymphocytes (Bld) [#/Vol] 1.7 10 3/uL 1.2-3.8 [facility] Lymphocytes/100 WBC Auto (Bl d)Ordered By: Sandro Chin on 12-25-2024 Lymphocytes/100 WBC (Bld) 36.1 % 20.5-60.0 [facility] MCH Auto (RBC) [Entitic mass ]Ordered By: Sandro Chin on 12-25-2024 MCH (RBC) [Entitic mass] 31.8 pg 26.7-34.0 [facility] MCHC Auto (RBC) [Mass/Vol]Or dered By: Sandro Chin on 12-25-2024 MCHC (RBC) [Mass/Vol] 33.3 g/dL 29.9-35.2 [facility] MCV Auto (RBC) [Entitic vol] Ordered By: Sandro Chin on 12-25-2024 MCV (RBC) [Entitic vol] 95.7 fL 81.0-99.0 [facility] Monocytes Auto (Bld) [#/Vol] Ordered By: Sandro Chin on 12-25-2024 Monocytes (Bld) [#/Vol] 0.3 10 3/uL 0.3-0.8 [facility] Monocytes/100 WBC Auto (Bld) Ordered By: Sandro Chin on 12-25-2024 Monocytes/100 WBC (Bld) 6.8 % 1.7-12.0 [facility] Neutrophils Auto (Bld) [#/Vo l]Ordered By: Sandro Chin on 12-25-2024 Neutrophils (Bld) [#/Vol] 2.6 10 3/uL 1.4-6.5 [facility] Neutrophils/100 WBC Auto (Bl d)Ordered By: Sandro Chin on 12-25-2024 Neutrophils/100 WBC (Bld) 54.6 % 43.0-75.0 [facility] No Panel InformationOrdered By: Sandro Chin on 12-25-2024 Eosinophils # (Auto) 0.1 10 3/uL 0.0-0.7 [facility] Immature Granulocyte # (Auto) 0.01 10 3/uL 0.00-0.03 [facility] Platelet mean volume Auto (B ld) [Entitic vol]Ordered By: Sandro Chin on 12-25-2024 Platelet mean volume (Bld) [Entitic vol] 10.9 fL 9.5-13.5 [facility] Platelets Auto (Bld) [#/Vol] Ordered By: Sandro Chin on 12-25-2024 Platelets (Bld) [#/Vol] 210 10 3/uL 150-450 [facility] RBC Auto (Bld) [#/Vol]Ordere d By: Sandro Chin on 12-25-2024 RBC (Bld) [#/Vol] 4.37 10 6/uL 4.20-5.40 [facility] Serum or plasma albumin/glob ulin mass ratioOrdered By: Sandro Chin on 12-25-2024 Albumin/Globulin [Mass ratio] 1.1 {ratio} [facility] Serum or plasma anion gap de terminationOrdered By: Sandro Chin on 12-25-2024 Anion gap [Moles/Vol] 13.3 mmol/L [facility] Serum or plasma total choles terol/high density lipoprotein (HDL) cholesterol mass ratOrdered By: Sandro Chin on 12-25-2024 Cholesterol.total/Chol esterol in HDL [Mass ratio] 4.6 {ratio} [facility] Comment on above: 3.3 - 4.4 LOW RISK4. 4 - 7.1 AVERAGE RISK7.1 - 11.0 MODERATE RISK>11.0 HIGH RISK Chlamydia trachomatis rRNA [ Presence] in Cervix by MARIVEL with probe detectionOrdered By: Sandro Chin on 12-20-2024 C. trachomatis rRNA MARIVEL+probe Ql (Cvx) Negative Negative [facility] Neisseria gonorrhoeae rRNA [ Presence] in Cervix by MARIVEL with probe detectionOrdered By: Sandro Chin on 12-20-2024 N. gonorrhoeae rRNA MARIVEL+probe Ql (Cvx) Negative Negative [facility] Comment on above: Performed at: WB - [facility] [id number] [place], [place] [id number] Director: Che Swenson MD, Phone: [phone] at: =G - [facility] [address] [id number] Director: Che Swenson MD, Phone: [phone] No Panel InformationOrdered By: Sandro Chin on 12-20-2024 IG Pap w/Ct-Ng & HPV (Off-Site) Note . [facility] Comment on above: TESTS RESULT FLAG UN ITS REF RANGE LAB Clinician Provided Cytology Information No. of containers..01 ThinPrep VialDIAGNOSIS: 01 NEGATIVE FOR INTRAEPITHELIAL LESION OR MALIGNANCY. CELLULAR CHANGES ASSOCIATED WITH ATROPHY AND INFLAMMATION ARE PRESENT.Specimen adequacy: 01 Satisfactory for evaluation. Endocervical component may not be distinguished in cases of atrophy.Performed by: Kenton Hines Operations Accountant (ASCP). 01Note: Note 01 The Pap smear is a screening test designed to aid in the detection of premalignant and malignant conditions of the uterine cervix. It is not a diagnostic procedure and should not be used as the sole means of detecting cervical cancer. Both false-positive and false-negative reports do occur.Test Methodology: Note 01 The [employer] Plant Caretaker was unable to read this specimen. Therefore a manual review was performed.. 01 The HPV DNA reflex criteria were not met with this specimen result therefore, no HPV testing was performed. ------- FLAG LEGEND: L-Low Normal,H-High Normal,LL-Alert Low,HH-Alert High <-Panic Low,>-Panic High,A-Abnormal,AA-Critical Abnormal -----Performed at:01 WB [facility] [address] [id number] Che Swenson MD, Pap IG, CtNg, rfx HPV Aptima on 12-20-2024 PAP Chlamydia MAIRVEL Negative Normal Negative [facility] Comment on above: Performed By: #### P AP #### [facility] , PAP Gonococcus Negative Normal Negative [facility] Comment on above: Result Comment: Perf ormed at: WB - [facility] [address] [id number] [place]: Che Swenson MD, Phone: [phone] Performed at: =G - [facility] [address] [id number] [place]: Che Swenson MD, Phone: [phone] PERFORMED BY: [place] [address] PATHOLOGIST LOCK PLATER CECY RODRIGUEZ M.D. Performed By: #### P AP #### [facility] , Pap IG Note Normal . [facility] Comment on above: Result Comment: TEST S RESULT FLAG UNITS REF RANGE LAB Clinician Provided Cytology Information No. of containers..01 ThinPrep Vial DIAGNOSIS: 01 NEGATIVE FOR INTRAEPITHELIAL LESION OR MALIGNANCY. CELLULAR CHANGES ASSOCIATED WITH ATROPHY AND INFLAMMATION ARE PRESENT. Specimen adequacy: 01 Satisfactory for evaluation. Endocervical component may not be distinguished in cases of atrophy. Performed by: 01 Nella Hines, Operations Accountant ([facility]) . 01 Note: Note 01 The Pap smear is a screening test designed to aid in the detection of premalignant and malignant conditions of the uterine cervix. It is not a diagnostic procedure and should not be used as the sole means of detecting cervical cancer. Both false-positive and false-negative reports do occur. Test Methodology: Note 01 The [employer] Mall Plant Caretaker was unable to read this specimen. Therefore a manual review was performed. . 01 The HPV DNA reflex criteria were not met with this specimen result therefore, no HPV testing was performed. FLAG LEGEND: L-Low Normal,H-High Normal,LL-Alert Low,HH-Alert High <-Panic Low,>-Panic High,A-Abnormal,AA-Critical Abnormal Performed at: [address] [facility] [address] [id number] Che Swenson MD, Performed By: #### P AP [id number] #### [facility] , Basophils Auto (Bld) [#/Vol] on 08-24-2024 Basophils (Bld) [#/Vol] Automated basophil count 0.0-0.1 [facility] Basophils/100 WBC Auto (Bld) on 08-24-2024 Basophils/100 WBC (Bld) Automated basophil % 0.2-2.0 [facility] Eosinophils/100 WBC Auto (Bl d)on 08-24-2024 Eosinophils/100 WBC (Bld) Automated eosinophil % 0.9-7.0 [facility] Erythrocyte distribution wid th Auto (RBC) [Ratio]on 08-24-2024 Erythrocyte distribution width (RBC) [Ratio] Erythrocyte distribution width [Ratio] by Automated count 11.0-15.0 [facility] Estimated glomerular filtrat ion rate (GFR) non- Americanon 08-24-2024 GFR/1.73 sq M.predicted among non-blacks MDRD (S/P/Bld) [Vol rate/Area] Estimated glomerular filtration rate (GFR) non- >=60 mL/min/1.7 3m 2 [facility] Globulin Calc (S) [Mass/Vol] on 08-24-2024 Globulin (S) [Mass/Vol] Serum globulin measurement by calculation (mass/volume) [facility] Hematocrit Auto (Bld) [Volum e fraction]on 08-24-2024 Hematocrit (Bld) [Volume fraction] Hematocrit [Volume Fraction] of Blood by Automated count 36.0-48.0 [facility] Hemoglobin [Mass/volume] in Bloodon 08-24-2024 Hemoglobin (Bld) [Mass/Vol] Hemoglobin [Mass/volume] in Blood 12.0-16.0 [facility] Laboratory - Chemistry and C hemistry - challengeon 08-24-2024 Albumin [Mass/Vol] 3.9 g/dL 3.4-5.0 [facility] ALP [Catalytic activity/Vol] 75 U/L 46-116 [facility] ALT [Catalytic activity/Vol] 20 U/L 14-59 [facility] AST [Catalytic activity/Vol] 20 U/L 15-37 [facility] Bilirubin [Mass/Vol] 0.6 mg/dL 0.2-1.0 [facility] Calcium [Mass/Vol] 9.3 mg/dL 8.5-10.1 [facility] Chloride [Moles/Vol] 103 mmol/L 98-107 [facility] CO2 [Moles/Vol] 27.7 mmol/L 21.0-32.0 [facility] Creatinine [Mass/Vol] 0.69 mg/dL 0.55-1.02 [facility] GFR/1.73 sq M.predicted MDRD (S/P/Bld) [Vol rate/Area] mL/min/{1.73_m2} >=60 mL/min/1.7 3m 2 [facility] Glucose [Mass/Vol] 106 mg/dL 74-106 [facility] Potassium [Moles/Vol] 4.2 mmol/L 3.5-5.1 [facility] Protein [Mass/Vol] 7.4 g/dL 6.4-8.2 [facility] Sodium [Moles/Vol] 135 mmol/L Low 136-145 [facility] Urea nitrogen [Mass/Vol] 11.0 mg/dL 7.0-18.0 [facility] Urea nitrogen/Creatinine [Mass ratio] 15.9 mg/mg [facility] Laboratory - Hematology and Cell countson 08-24-2024 Immature granulocytes/100 WBC (Bld) 0.2 % 0.0-0.5 [facility] Leukocytes [#/volume] correc audrey for nucleated erythrocytes in Blood by Automated counon 08-24-2024 WBC corrected for nucl RBC Auto (Bld) [#/Vol] Leukocytes [#/volume] corrected for nucleated erythrocytes in Blood by Automated coun 4.0-11.0 [facility] Lymphocytes Auto (Bld) [#/Vo l]on 08-24-2024 Lymphocytes (Bld) [#/Vol] Lymphocytes [#/volume] in Blood by Automated count 1.2-3.8 [facility] Lymphocytes/100 WBC Auto (Bl d)on 08-24-2024 Lymphocytes/100 WBC (Bld) Lymphocytes/100 leukocytes in Blood by Automated count 20.5-60.0 [facility] MCH Auto (RBC) [Entitic mass ]on 08-24-2024 MCH (RBC) [Entitic mass] MCH [Entitic mass] by Automated count 26.7-34.0 [facility] MCHC Auto (RBC) [Mass/Vol]on 08-24-2024 MCHC (RBC) [Mass/Vol] MCHC [Mass/volume] by Automated count 29.9-35.2 [facility] MCV Auto (RBC) [Entitic vol] on 08-24-2024 MCV (RBC) [Entitic vol] MCV [Entitic volume] by Automated count 81.0-99.0 [facility] Monocytes Auto (Bld) [#/Vol] on 08-24-2024 Monocytes (Bld) [#/Vol] Automated blood monocyte count 0.3-0.8 [facility] Monocytes/100 WBC Auto (Bld) on 08-24-2024 Monocytes/100 WBC (Bld) Automated monocyte % 1.7-12.0 [facility] Neutrophils Auto (Bld) [#/Vo l]on 08-24-2024 Neutrophils (Bld) [#/Vol] Neutrophils [#/volume] in Blood by Automated count 1.4-6.5 [facility] Neutrophils/100 WBC Auto (Bl d)on 08-24-2024 Neutrophils/100 WBC (Bld) Automated neutrophil % 43.0-75.0 [facility] No Panel Informationon 08-24 Eosinophils # (Auto) 0.1 10 3/uL 0.0-0.7 [facility] Immature Granulocyte # (Auto) 0.01 10 3/uL 0.00-0.03 [facility] Platelet mean volume Auto (B ld) [Entitic vol]on 08-24-2024 Platelet mean volume (Bld) [Entitic vol] Platelet mean volume [Entitic volume] in Blood by Automated count 9.5-13.5 [facility] Platelets Auto (Bld) [#/Vol] on 08-24-2024 Platelets (Bld) [#/Vol] Platelets [#/volume] in Blood by Automated count 150-450 [facility] RBC Auto (Bld) [#/Vol]on RBC (Bld) [#/Vol] Erythrocytes [#/volu me] in Blood by Automated count 4.20-5.40 [facility] Serum or plasma albumin/glob ulin mass ratioon 08-24-2024 Albumin/Globulin [Mass ratio] Serum or plasma albumin/globulin mass ratio [facility] Serum or plasma anion gap de terminationon 08-24-2024 Anion gap [Moles/Vol] Serum or plasma an ion gap determination [facility] Basophils Auto (Bld) [#/Vol] on 01-15-2024 Basophils (Bld) [#/Vol] 0.1 10 3/uL 0.0-0.1 [facility] Basophils/100 WBC Auto (Bld) on 01-15-2024 Basophils/100 WBC (Bld) 1.0 % 0.2-2.0 [facility] Eosinophils/100 WBC Auto (Bl d)on 01-15-2024 Eosinophils/100 WBC (Bld) 1.8 % 0.9-7.0 [facility] Erythrocyte distribution wid th Auto (RBC) [Ratio]on 01-15-2024 Erythrocyte distribution width (RBC) [Ratio] 13.1 % 11.0-15.0 [facility] Estimated glomerular filtrat ion rate (GFR) non- Americanon 01-15-2024 GFR/1.73 sq M.predicted among non-blacks MDRD (S/P/Bld) [Vol rate/Area] mL/min/{1.73_m2} >=60 [facility] Globulin Calc (S) [Mass/Vol] on 01-15-2024 Globulin (S) [Mass/Vol] 3.6 g/dL [facility] Hematocrit Auto (Bld) [Volum e fraction]on 01-15-2024 Hematocrit (Bld) [Volume fraction] 42.6 % 36.0-48.0 [facility] Hemoglobin [Mass/volume] in Bloodon 01-15-2024 Hemoglobin (Bld) [Mass/Vol] 13.7 g/dL 12.0-16.0 [facility] Laboratory - Chemistry and C hemistry - challengeon 01-15-2024 Albumin [Mass/Vol] 4.0 g/dL 3.4-5.0 [facility] ALP [Catalytic activity/Vol] 90 U/L 46-116 [facility] ALT [Catalytic activity/Vol] 22 U/L 14-59 [facility] AST [Catalytic activity/Vol] 21 U/L 15-37 [facility] Bilirubin [Mass/Vol] 0.6 mg/dL 0.2-1.0 [facility] Calcium [Mass/Vol] 9.6 mg/dL 8.5-10.1 [facility] Chloride [Moles/Vol] 102 mmol/L 98-107 [facility] CO2 [Moles/Vol] 26.2 mmol/L 21.0-32.0 [facility] Creatinine [Mass/Vol] 0.60 mg/dL 0.55-1.02 [facility] GFR/1.73 sq M.predicted MDRD (S/P/Bld) [Vol rate/Area] mL/min/{1.73_m2} >=60 [facility] Glucose [Mass/Vol] 107 mg/dL High 74-106 [facility] Potassium [Moles/Vol] 4.2 mmol/L 3.5-5.1 [facility] Protein [Mass/Vol] 7.6 g/dL 6.4-8.2 [facility] Sodium [Moles/Vol] 136 mmol/L 136-145 [facility] Urea nitrogen [Mass/Vol] 13.0 mg/dL 7.0-18.0 [facility] Urea nitrogen/Creatinine [Mass ratio] 21.7 mg/mg [facility] Laboratory - Hematology and Cell countson 01-15-2024 Immature granulocytes/100 WBC (Bld) 0.2 % 0.0-0.5 [facility] Leukocytes [#/volume] correc audrey for nucleated erythrocytes in Blood by Automated counon 01-15-2024 WBC corrected for nucl RBC Auto (Bld) [#/Vol] 5.0 10 3/uL 4.0-11.0 [facility] Lymphocytes Auto (Bld) [#/Vo l]on 01-15-2024 Lymphocytes (Bld) [#/Vol] 2.0 10 3/uL 1.2-3.8 [facility] Lymphocytes/100 WBC Auto (Bl d)on 01-15-2024 Lymphocytes/100 WBC (Bld) 39.4 % 20.5-60.0 [facility] MCH Auto (RBC) [Entitic mass ]on 01-15-2024 MCH (RBC) [Entitic mass] 32.2 pg 26.7-34.0 [facility] MCHC Auto (RBC) [Mass/Vol]on 01-15-2024 MCHC (RBC) [Mass/Vol] 32.2 g/dL 29.9-35.2 [facility] MCV Auto (RBC) [Entitic vol] on 01-15-2024 MCV (RBC) [Entitic vol] 100.0 fL High 81.0-99.0 [facility] Monocytes Auto (Bld) [#/Vol] on 01-15-2024 Monocytes (Bld) [#/Vol] 0.5 10 3/uL 0.3-0.8 [facility] Monocytes/100 WBC Auto (Bld) on 01-15-2024 Monocytes/100 WBC (Bld) 9.1 % 1.7-12.0 [facility] Neutrophils Auto (Bld) [#/Vo l]on 01-15-2024 Neutrophils (Bld) [#/Vol] 2.4 10 3/uL 1.4-6.5 [facility] Neutrophils/100 WBC Auto (Bl d)on 01-15-2024 Neutrophils/100 WBC (Bld) 48.5 % 43.0-75.0 [facility] No Panel Informationon 01-14 Eosinophils # (Auto) 0.1 10 3/uL 0.0-0.7 [facility] Immature Granulocyte # (Auto) 0.01 10 3/uL 0.00-0.03 [facility] Platelet mean volume Auto (B ld) [Entitic vol]on 01-15-2024 Platelet mean volume (Bld) [Entitic vol] 10.9 fL 9.5-13.5 [facility] Platelets Auto (Bld) [#/Vol] on 01-15-2024 Platelets (Bld) [#/Vol] 197 10 3/uL 150-450 [facility] RBC Auto (Bld) [#/Vol]on RBC (Bld) [#/Vol] 4.26 10 6/uL 4.20-5.40 [facility] Serum or plasma albumin/glob ulin mass ratioon 01-15-2024 Albumin/Globulin [Mass ratio] 1.1 {ratio} [facility] Serum or plasma anion gap de terminationon 01-15-2024 Anion gap [Moles/Vol] 12.0 mmol/L [facility] Basophils Auto (Bld) [#/Vol] on 11-26-2023 Basophils (Bld) [#/Vol] 0.0 10 3/uL 0.0-0.1 [facility] Basophils/100 WBC Auto (Bld) on 11-26-2023 Basophils/100 WBC (Bld) 0.9 % 0.2-2.0 [facility] Cholesterol in LDL Calc [Mas s/Vol]on 11-26-2023 Cholesterol in LDL [Mass/Vol] 179.0 mg/dL [facility] Comment on above: <100 mg/dl [id number] 0-129 mg/dl NEAR OR ABOVE [id number] mg/dl BORDERLINE [id number] mg/dl HIGH>190 mg/dl VERY HIGH Cholesterol in VLDL Calc [Ma ss/Vol]on 11-26-2023 Cholesterol in VLDL [Mass/Vol] 28.0 mg/dL [facility] Eosinophils/100 WBC Auto (Bl d)on 11-26-2023 Eosinophils/100 WBC (Bld) 2.4 % 0.9-7.0 [facility] Erythrocyte distribution wid th Auto (RBC) [Ratio]on 11-26-2023 Erythrocyte distribution width (RBC) [Ratio] 13.2 % 11.0-15.0 [facility] Estimated glomerular filtrat ion rate (GFR) non- Americanon 11-26-2023 GFR/1.73 sq M.predicted among non-blacks MDRD (S/P/Bld) [Vol rate/Area] mL/min/{1.73_m2} >=60 [facility] Globulin Calc (S) [Mass/Vol] on 11-26-2023 Globulin (S) [Mass/Vol] 3.5 g/dL [facility] Glucose mean value [Mass/vol ume] in Blood Estimated from glycated hemoglobinon 11-26-2023 Average glucose Estimated from glycated hemoglobin (Bld) [Mass/Vol] 94 mg/dL [facility] Hematocrit Auto (Bld) [Volum e fraction]on 11-26-2023 Hematocrit (Bld) [Volume fraction] 41.5 % 36.0-48.0 [facility] Hemoglobin [Mass/volume] in Bloodon 11-26-2023 Hemoglobin (Bld) [Mass/Vol] 13.4 g/dL 12.0-16.0 [facility] Laboratory - Chemistry and C hemistry - challengeon 11-26-2023 Albumin [Mass/Vol] 3.9 g/dL 3.4-5.0 [facility] ALP [Catalytic activity/Vol] 101 U/L 46-116 [facility] ALT [Catalytic activity/Vol] 29 U/L 14-59 [facility] AST [Catalytic activity/Vol] 19 U/L 15-37 [facility] Bilirubin [Mass/Vol] 0.5 mg/dL 0.2-1.0 [facility] Calcium [Mass/Vol] 9.5 mg/dL 8.5-10.1 [facility] Chloride [Moles/Vol] 105 mmol/L 98-107 [facility] Cholesterol [Mass/Vol] 250 mg/dL High <=200 [facility] Cholesterol in HDL [Mass/Vol] 43 mg/dL 40-60 [facility] Comment on above: > or =60 mg/dl - LOW CARDIOVASCULAR RISK<40 mg/dl - HIGH CARDIOVASCULAR RISK CO2 [Moles/Vol] 28.5 mmol/L 21.0-32.0 [facility] Creatinine [Mass/Vol] 0.57 mg/dL 0.55-1.02 [facility] GFR/1.73 sq M.predicted MDRD (S/P/Bld) [Vol rate/Area] mL/min/{1.73_m2} >=60 [facility] Glucose [Mass/Vol] 100 mg/dL 74-106 [facility] Potassium [Moles/Vol] 4.0 mmol/L 3.5-5.1 [facility] Protein [Mass/Vol] 7.4 g/dL 6.4-8.2 [facility] Sodium [Moles/Vol] 142 mmol/L 136-145 [facility] Triglyceride [Mass/Vol] 140 mg/dL <=150 [facility] TSH Qn 1.818 m[IU]/L 0.358-3.74 0 [facility] Urea nitrogen [Mass/Vol] 16.0 mg/dL 7.0-18.0 [facility] Urea nitrogen/Creatinine [Mass ratio] 28.1 mg/mg [facility] Laboratory - Hematology and Cell countson 11-26-2023 HbA1c (Bld) [Mass fraction] 4.9 % 4.5-6.2 [facility] Comment on above: ADA RECOMMENDED LIMI T 4.0 - 6.0ADA THERAPEUTIC TARGET < 7.0ACTION SUGGESTED> 7.0 Immature granulocytes/100 WBC (Bld) 0.2 % 0.0-0.5 [facility] Leukocytes [#/volume] correc audrey for nucleated erythrocytes in Blood by Automated counon 11-26-2023 WBC corrected for nucl RBC Auto (Bld) [#/Vol] 4.6 10 3/uL 4.0-11.0 [facility] Lymphocytes Auto (Bld) [#/Vo l]on 11-26-2023 Lymphocytes (Bld) [#/Vol] 2.1 10 3/uL 1.2-3.8 [facility] Lymphocytes/100 WBC Auto (Bl d)on 11-26-2023 Lymphocytes/100 WBC (Bld) 44.7 % 20.5-60.0 [facility] MCH Auto (RBC) [Entitic mass ]on 11-26-2023 MCH (RBC) [Entitic mass] 31.5 pg 26.7-34.0 [facility] MCHC Auto (RBC) [Mass/Vol]on 11-26-2023 MCHC (RBC) [Mass/Vol] 32.3 g/dL 29.9-35.2 [facility] MCV Auto (RBC) [Entitic vol] on 11-26-2023 MCV (RBC) [Entitic vol] 97.4 fL 81.0-99.0 [facility] Monocytes Auto (Bld) [#/Vol] on 11-26-2023 Monocytes (Bld) [#/Vol] 0.4 10 3/uL 0.3-0.8 [facility] Monocytes/100 WBC Auto (Bld) on 11-26-2023 Monocytes/100 WBC (Bld) 8.5 % 1.7-12.0 [facility] Neutrophils Auto (Bld) [#/Vo l]on 11-26-2023 Neutrophils (Bld) [#/Vol] 2.0 10 3/uL 1.4-6.5 [facility] Neutrophils/100 WBC Auto (Bl d)on 11-26-2023 Neutrophils/100 WBC (Bld) 43.3 % 43.0-75.0 [facility] No Panel Informationon 11-25 Eosinophils # (Auto) 0.1 10 3/uL 0.0-0.7 [facility] Immature Granulocyte # (Auto) 0.01 10 3/uL 0.00-0.03 [facility] Platelet mean volume Auto (B ld) [Entitic vol]on 11-26-2023 Platelet mean volume (Bld) [Entitic vol] 11.4 fL 9.5-13.5 [facility] Platelets Auto (Bld) [#/Vol] on 11-26-2023 Platelets (Bld) [#/Vol] 210 10 3/uL 150-450 [facility] RBC Auto (Bld) [#/Vol]on RBC (Bld) [#/Vol] 4.26 10 6/uL 4.20-5.40 [facility] Serum or plasma albumin/glob ulin mass ratioon 11-26-2023 Albumin/Globulin [Mass ratio] 1.1 {ratio} [facility] Serum or plasma anion gap de terminationon 11-26-2023 Anion gap [Moles/Vol] 12.5 mmol/L [facility] Serum or plasma total choles terol/high density lipoprotein (HDL) cholesterol mass johan 11-26-2023 Cholesterol.total/Chol esterol in HDL [Mass ratio] 5.8 {ratio} [facility] Comment on above: 3.3 - 4.4 LOW RISK4. 4 - 7.1 AVERAGE RISK7.1 - 11.0 MODERATE RISK>11.0 HIGH RISK Basophils Auto (Bld) [#/Vol] on 09-18-2023 Basophils (Bld) [#/Vol] 0.1 10 3/uL 0.0-0.1 [facility] Basophils/100 WBC Auto (Bld) on 09-18-2023 Basophils/100 WBC (Bld) 1.1 % 0.2-2.0 [facility] Eosinophils/100 WBC Auto (Bl d)on 09-18-2023 Eosinophils/100 WBC (Bld) 2.2 % 0.9-7.0 [facility] Erythrocyte distribution wid th Auto (RBC) [Ratio]on 09-18-2023 Erythrocyte distribution width (RBC) [Ratio] 12.2 % 11.0-15.0 [facility] Estimated glomerular filtrat ion rate (GFR) non- Americanon 09-18-2023 GFR/1.73 sq M.predicted among non-blacks MDRD (S/P/Bld) [Vol rate/Area] mL/min/{1.73_m2} >=60 [facility] Globulin Calc (S) [Mass/Vol] on 09-18-2023 Globulin (S) [Mass/Vol] 3.3 g/dL [facility] Hematocrit Auto (Bld) [Volum e fraction]on 09-18-2023 Hematocrit (Bld) [Volume fraction] 42.5 % 36.0-48.0 [facility] Hemoglobin [Mass/volume] in Bloodon 09-18-2023 Hemoglobin (Bld) [Mass/Vol] 13.5 g/dL 12.0-16.0 [facility] Laboratory - Chemistry and C hemistry - challengeon 09-18-2023 Albumin [Mass/Vol] 3.8 g/dL 3.4-5.0 [facility] ALP [Catalytic activity/Vol] 89 U/L 46-116 [facility] ALT [Catalytic activity/Vol] 26 U/L 14-59 [facility] AST [Catalytic activity/Vol] 19 U/L 15-37 [facility] Bilirubin [Mass/Vol] 0.4 mg/dL 0.2-1.0 [facility] Calcium [Mass/Vol] 8.9 mg/dL 8.5-10.1 [facility] Chloride [Moles/Vol] 105 mmol/L 98-107 [facility] CO2 [Moles/Vol] 29.0 mmol/L 21.0-32.0 [facility] Creatinine [Mass/Vol] 0.71 mg/dL 0.55-1.02 [facility] GFR/1.73 sq M.predicted MDRD (S/P/Bld) [Vol rate/Area] mL/min/{1.73_m2} >=60 [facility] Glucose [Mass/Vol] 84 mg/dL 74-106 [facility] Potassium [Moles/Vol] 4.2 mmol/L 3.5-5.1 [facility] Protein [Mass/Vol] 7.1 g/dL 6.4-8.2 [facility] Sodium [Moles/Vol] 142 mmol/L 136-145 [facility] Urea nitrogen [Mass/Vol] 13.0 mg/dL 7.0-18.0 [facility] Urea nitrogen/Creatinine [Mass ratio] 18.3 mg/mg [facility] Laboratory - Hematology and Cell countson 09-18-2023 Immature granulocytes/100 WBC (Bld) 0.2 % 0.0-0.5 [facility] Leukocytes [#/volume] correc audrey for nucleated erythrocytes in Blood by Automated counon 09-18-2023 WBC corrected for nucl RBC Auto (Bld) [#/Vol] 4.6 10 3/uL 4.0-11.0 [facility] Lymphocytes Auto (Bld) [#/Vo l]on 09-18-2023 Lymphocytes (Bld) [#/Vol] 2.6 10 3/uL 1.2-3.8 [facility] Lymphocytes/100 WBC Auto (Bl d)on 09-18-2023 Lymphocytes/100 WBC (Bld) 56.8 % 20.5-60.0 [facility] MCH Auto (RBC) [Entitic mass ]on 09-18-2023 MCH (RBC) [Entitic mass] 31.5 pg 26.7-34.0 [facility] MCHC Auto (RBC) [Mass/Vol]on 09-18-2023 MCHC (RBC) [Mass/Vol] 31.8 g/dL 29.9-35.2 [facility] MCV Auto (RBC) [Entitic vol] on 09-18-2023 MCV (RBC) [Entitic vol] 99.1 fL 81.0-99.0 [facility] Monocytes Auto (Bld) [#/Vol] on 09-18-2023 Monocytes (Bld) [#/Vol] 0.4 10 3/uL 0.3-0.8 [facility] Monocytes/100 WBC Auto (Bld) on 09-18-2023 Monocytes/100 WBC (Bld) 8.2 % 1.7-12.0 [facility] Neutrophils Auto (Bld) [#/Vo l]on 09-18-2023 Neutrophils (Bld) [#/Vol] 1.5 10 3/uL 1.4-6.5 [facility] Neutrophils/100 WBC Auto (Bl d)on 09-18-2023 Neutrophils/100 WBC (Bld) 31.5 % 43.0-75.0 [facility] No Panel Informationon 09-17 Eosinophils # (Auto) 0.1 10 3/uL 0.0-0.7 [facility] Immature Granulocyte # (Auto) 0.01 10 3/uL 0.00-0.03 [facility] Platelet mean volume Auto (B ld) [Entitic vol]on 09-18-2023 Platelet mean volume (Bld) [Entitic vol] 11.1 fL 9.5-13.5 [facility] Platelets Auto (Bld) [#/Vol] on 09-18-2023 Platelets (Bld) [#/Vol] 196 10 3/uL 150-450 [facility] RBC Auto (Bld) [#/Vol]on RBC (Bld) [#/Vol] 4.29 10 6/uL 4.20-5.40 [facility] Serum or plasma albumin/glob ulin mass ratioon 09-18-2023 Albumin/Globulin [Mass ratio] 1.2 {ratio} [facility] Serum or plasma anion gap de terminationon 09-18-2023 Anion gap [Moles/Vol] 12.2 mmol/L [facility] Alanine aminotransferase [En zymatic activity/volume] in Serum or PlasmaOrdered By: Isaías Jordan on 03-20-2023 ALT [Catalytic activity/Vol] 16 U/L [facility] ALT [Catalytic activity/Vol] Alanine aminotransferase [Enzymatic activity/volume] in Serum or Plasma [facility] Albumin [Mass/volume] in Ser um or Plasma by Bromocresol green (BCG) dye binding methoOrdered By: Isaías Jordan on 03-20-2023 Albumin BCG dye [Mass/Vol] 4.4 g/dL 3.5-5.7 [facility] Albumin BCG dye [Mass/Vol] Albumin [Mass/volume] in Serum or Plasma by Bromocresol green (BCG) dye binding metho 3.5-5.7 [facility] Alkaline phosphatase [Enzyma tic activity/volume] in Serum or PlasmaOrdered By: Isaías Jordan on 03-20-2023 ALP [Catalytic activity/Vol] 88 U/L 104 [facility] ALP [Catalytic activity/Vol] Alkaline phosphatase [Enzymatic activity/volume] in Serum or Plasma 104 [facility] Aspartate aminotransferase [ Enzymatic activity/volume] in Serum or PlasmaOrdered By: Isaías Jordan on 03-20-2023 AST [Catalytic activity/Vol] 21 U/L [facility] AST [Catalytic activity/Vol] Aspartate aminotransferase [Enzymatic activity/volume] in Serum or Plasma [facility] Basophils Auto (Bld) [#/Vol] Ordered By: Isaías Jordan on 03-20-2023 Basophils (Bld) [#/Vol] 0.1 10*3/uL 0.0-0.2 [facility] Basophils (Bld) [#/Vol] Automated basophil count 0.0-0.2 [facility] Basophils/100 WBC Auto (Bld) Ordered By: Isaías Jordan on 03-20-2023 Basophils/100 WBC (Bld) 1.2 % . [facility] Basophils/100 WBC (Bld) Automated basophil % . [facility] Bilirubin.total [Mass/volume ] in Serum or PlasmaOrdered By: Isaías Jordan on 03-20-2023 Bilirubin [Mass/Vol] 0.8 mg/dL 0.3-1.0 [facility] Bilirubin [Mass/Vol] Bilirubin.total [Mass/volume] in Serum or Plasma 0.3-1.0 [facility] Calcium [Mass/volume] in Ser um or PlasmaOrdered By: Isaías Jordan on 03-20-2023 Calcium [Mass/Vol] 10.3 mg/dL 8.6-10.3 [facility] Calcium [Mass/Vol] Calcium [Mass/volume ] in Serum or Plasma 8.6-10.3 [facility] Carbon dioxide, total [Moles /volume] in Serum or PlasmaOrdered By: Isaías Jordan on 03-20-2023 CO2 [Moles/Vol] 27.3 mmol/L 21.0-31.0 [facility] CO2 [Moles/Vol] Carbon dioxide, tota l [Moles/volume] in Serum or Plasma 21.0-31.0 [facility] Chloride [Moles/volume] in S daljit or PlasmaOrdered By: Isaías Jordan on 03-20-2023 Chloride [Moles/Vol] 105 mmol/L 98-107 [facility] Chloride [Moles/Vol] Chloride [Moles/vol ume] in Serum or Plasma 98-107 [facility] Creatinine [Mass/volume] in Serum or PlasmaOrdered By: Isaías Jordan on 03-20-2023 Creatinine [Mass/Vol] 0.73 mg/dL 0.60-1.20 [facility] Creatinine [Mass/Vol] Creatinine [Mass/v olume] in Serum or Plasma 0.60-1.20 [facility] Eosinophils Auto (Bld) [#/Vo l]Ordered By: Isaías Jordan on 03-20-2023 Eosinophils (Bld) [#/Vol] 0.1 10*3/uL 0.0-0.45 [facility] Eosinophils (Bld) [#/Vol] Automated eosinophil count 0.0-0.45 [facility] Eosinophils/100 WBC Auto (Bl d)Ordered By: Isaías Jordan on 03-20-2023 Eosinophils/100 WBC (Bld) 2.8 % . [facility] Eosinophils/100 WBC (Bld) Automated eosinophil % . [facility] Erythrocyte distribution wid th Auto (RBC) [Ratio]Ordered By: Isaías Jordan on 03-20-2023 Erythrocyte distribution width (RBC) [Ratio] 13.7 % 11.9-15.3 [facility] Erythrocyte distribution width (RBC) [Ratio] Erythrocyte distribution width [Ratio] by Automated count 11.9-15.3 [facility] Globulin Calc (S) [Mass/Vol] Ordered By: Isaías Jordan on 03-20-2023 Globulin (S) [Mass/Vol] 2.9 g/dL [facility] Globulin (S) [Mass/Vol] Serum globulin measurement by calculation (mass/volume) [facility] Glucose [Mass/volume] in Ser um or PlasmaOrdered By: Isaías Jordan on 03-20-2023 Glucose [Mass/Vol] 80 mg/dL 70-100 [facility] Comment on above: ADA recommended refe rence rangeRandom Glucose Reference Range is dependent on time and content of last meal. Glucose of more than 200 mg/dL in a nonstressed, ambulatory subject supports the diagnosis of Diabetes Mellitus. Glucose [Mass/Vol] Glucose [Mass/volume ] in Serum or Plasma 70-100 [facility] Comment on above: ADA recommended refe rence rangeRandom Glucose Reference Range is dependent on time and content of last meal. Glucose of more than 200 mg/dL in a nonstressed, ambulatory subject supports the diagnosis of Diabetes Mellitus. Hematocrit Auto (Bld) [Volum e fraction]Ordered By: Isaías Jordan on 03-20-2023 Hematocrit (Bld) [Volume fraction] 40.8 % 34.0-46.4 [facility] Hematocrit (Bld) [Volume fraction] Hematocrit [Volume Fraction] of Blood by Automated count 34.0-46.4 [facility] Hemoglobin [Mass/volume] in BloodOrdered By: Isaías Jordan on 03-20-2023 Hemoglobin (Bld) [Mass/Vol] 13.8 g/dL 11.8-15.4 [facility] Hemoglobin (Bld) [Mass/Vol] Hemoglobin [Mass/volume] in Blood 11.8-15.4 [facility] Leukocytes [#/volume] correc audrey for nucleated erythrocytes in Blood by Automated counOrdered By: Isaías Jordan on 03-20-2023 WBC corrected for nucl RBC Auto (Bld) [#/Vol] 5.1 10*3/uL 3.8-11.6 [facility] WBC corrected for nucl RBC Auto (Bld) [#/Vol] Leukocytes [#/volume] corrected for nucleated erythrocytes in Blood by Automated coun 3.8-11.6 [facility] Lymphocytes Auto (Bld) [#/Vo l]Ordered By: Isaías Jordan on 03-20-2023 Lymphocytes (Bld) [#/Vol] 2.0 10*3/uL 1.00-4.8 [facility] Lymphocytes (Bld) [#/Vol] Lymphocytes [#/volume] in Blood by Automated count 1.00-4.8 [facility] Lymphocytes/100 WBC Auto (Bl d)Ordered By: Isaías Jordan on 03-20-2023 Lymphocytes/100 WBC (Bld) 39.4 % . [facility] Lymphocytes/100 WBC (Bld) Lymphocytes/100 leukocytes in Blood by Automated count . [facility] MCH Auto (RBC) [Entitic mass ]Ordered By: Isaías Jordan on 03-20-2023 MCH (RBC) [Entitic mass] 32.3 pg 24.7-34.3 [facility] MCH (RBC) [Entitic mass] MCH [Entitic mass] by Automated count 24.7-34.3 [facility] MCHC Auto (RBC) [Mass/Vol]Or dered By: Isaías Jordan on 03-20-2023 MCHC (RBC) [Mass/Vol] 33.7 g/dL 32.0-35.0 [facility] MCHC (RBC) [Mass/Vol] MCHC [Mass/volume] by Automated count 32.0-35.0 [facility] MCV Auto (RBC) [Entitic vol] Ordered By: Isaías Jordan on 03-20-2023 MCV (RBC) [Entitic vol] 95.7 fL 80-100 [facility] MCV (RBC) [Entitic vol] MCV [Entitic volume] by Automated count 80-100 [facility] Monocytes Auto (Bld) [#/Vol] Ordered By: Isaías Jordan on 03-20-2023 Monocytes (Bld) [#/Vol] 0.5 10*3/uL 0.0-0.8 [facility] Monocytes (Bld) [#/Vol] Automated blood monocyte count 0.0-0.8 [facility] Monocytes/100 WBC Auto (Bld) Ordered By: Isaías Jordan on 03-20-2023 Monocytes/100 WBC (Bld) 9.0 % . [facility] Monocytes/100 WBC (Bld) Automated monocyte % . [facility] Neutrophils Auto (Bld) [#/Vo l]Ordered By: Isaías Jordan on 03-20-2023 Neutrophils (Bld) [#/Vol] 2.4 10*3/uL 1.8-7.7 [facility] Neutrophils (Bld) [#/Vol] Neutrophils [#/volume] in Blood by Automated count 1.8-7.7 [facility] Neutrophils/100 WBC Auto (Bl d)Ordered By: Isaías Jordan on 03-20-2023 Neutrophils/100 WBC (Bld) 47.6 % . [facility] Neutrophils/100 WBC (Bld) Automated neutrophil % . [facility] No Panel InformationOrdered By: Isaías Jordan on 03-20-2023 Estimated GFR (CKD-EPI) > 60.0 mL/Min [facility] Creatinine Clearance (Chem 86.44 [facility] Nucleated erythrocytes [Pres ence] in Blood by Automated countOrdered By: Isaías Jordan on 03-20-2023 Nucleated RBC Auto Ql (Bld) 0.1 /100{WBC} 0-0.5 [facility] Nucleated RBC Auto Ql (Bld) Nucleated erythrocytes [Presence] in Blood by Automated count 0-0.5 [facility] Platelet mean volume Auto (B ld) [Entitic vol]Ordered By: Isaías Jordan on 03-20-2023 Platelet mean volume (Bld) [Entitic vol] 8.9 fL 6.3-10.7 [facility] Platelet mean volume (Bld) [Entitic vol] Platelet mean volume [Entitic volume] in Blood by Automated count 6.3-10.7 [facility] Platelets Auto (Bld) [#/Vol] Ordered By: Isaías Jordan on 03-20-2023 Platelets (Bld) [#/Vol] 198 10*3/uL 150-450 [facility] Platelets (Bld) [#/Vol] Platelets [#/volume] in Blood by Automated count 150-450 [facility] Potassium [Moles/volume] in Serum or PlasmaOrdered By: Isaías Jordan on 03-20-2023 Potassium [Moles/Vol] 4.3 mmol/L 3.5-5.1 [facility] Potassium [Moles/Vol] Potassium [Moles/v olume] in Serum or Plasma 3.5-5.1 [facility] Protein [Mass/volume] in Ser um or PlasmaOrdered By: Isaías Jordan on 03-20-2023 Protein [Mass/Vol] 7.3 g/dL 6.4-8.9 [facility] Protein [Mass/Vol] Protein [Mass/volume ] in Serum or Plasma 6.4-8.9 [facility] RBC Auto (Bld) [#/Vol]Ordere d By: Isaías Jordan on 03-20-2023 RBC (Bld) [#/Vol] 4.26 10*6/uL 3.60-5.00 [facility] RBC (Bld) [#/Vol] Erythrocytes [#/volu me] in Blood by Automated count 3.60-5.00 [facility] Serum or plasma albumin/glob ulin mass ratioOrdered By: Isaías Jordan on 03-20-2023 Albumin/Globulin [Mass ratio] 1.5 {ratio} [facility] Albumin/Globulin [Mass ratio] Serum or plasma albumin/globulin mass ratio [facility] Serum or plasma anion gap de terminationOrdered By: Isaías Jordan on 03-20-2023 Anion gap [Moles/Vol] 11.0 mmol/L [facility]0-[facility] Anion gap [Moles/Vol] Serum or plasma an ion gap determination 6.0-15.0 [facility] Serum or plasma carcinoembry onic antigen measurement (mass/volume)Ordered By: Isaías Jordan on 03-20-2023 Carcinoembryonic Ag [Mass/Vol] 3.3 ng/mL High 0.0-3.0 [facility] Carcinoembryonic Ag [Mass/Vol] Serum or plasma carcinoembryonic antigen measurement (mass/volume) High 0.0-3.0 [facility] Sodium [Moles/volume] in Ser um or PlasmaOrdered By: Isaías Jordan on 03-20-2023 Sodium [Moles/Vol] 139 mmol/L 136-145 [facility] Sodium [Moles/Vol] Sodium [Moles/volume ] in Serum or Plasma 136-145 [facility] Urea nitrogen [Mass/volume] in Serum or PlasmaOrdered By: Isaías Jordan on 03-20-2023 Urea nitrogen [Mass/Vol] 16 mg/dL 01-28 [facility] Urea nitrogen [Mass/Vol] Urea nitrogen [Mass/volume] in Serum or Plasma 01-28 [facility] WBC Auto (Bld) [#/Vol]Ordere d By: Isaías Jordan on 03-20-2023 WBC (Bld) [#/Vol] 5.1 10*3/uL 3.8-11.6 [facility] WBC (Bld) [#/Vol] Leukocytes [#/volume ] in Blood by Automated count 3.8-11.6 [facility] CBC AUTO DIFFon 11-16-2022 BASO # 0.0 103/ul Normal 0.0-0.1 [facility] Comment on above: Performed By: #### C BC #### [facility] [address] [address] [address] Doreen Betancourt Basophils/100 WBC (Bld) 0.6 % Normal 0.2-2.0 [facility] Comment on above: Performed By: #### C BC #### [facility] [address] [address] [address] Doreen Betancourt EO # 0.0 103/ul Normal 0.0-0.7 [facility] Comment on above: Performed By: #### C BC #### [facility] [address] [place] [address] Dr. Doreen Betancourt Eosinophils/100 WBC (Bld) 0.6 % Critically low 0.9-7.0 [facility] Comment on above: Performed By: #### C BC #### [facility] [address] [place] [address] Dr. Doreen Betancourt Erythrocyte distribution width (RBC) [Ratio] 13.7 % Normal 11.0-15.0 [facility] Comment on above: Performed By: #### C BC #### [facility] [address] [place] [address] Dr. Doreen Betancourt Hematocrit (Bld) [Volume fraction] 41.0 % Normal 36.0-48.0 [facility] Comment on above: Performed By: #### C BC #### [facility] [address] [place] [address] Dr. Doreen Betancourt Hemoglobin (Bld) [Mass/Vol] 13.1 g/dL Normal 12.0-16.0 [facility] Comment on above: Performed By: #### C BC #### [facility] [address] [place] [address] Dr. Doreen Betancourt IG # 0.00 10e3/ul Normal 0.00-0.03 [facility] Comment on above: Performed By: #### C BC #### [facility] [address] [place] [address] Dr. Doreen Betancourt IG % 0.0 % Normal 0.0-0.5 [facility] Comment on above: Performed By: #### C BC #### [facility] [address] [place] [address] Dr. Doreen Betancourt LYMPH # 2.0 103/ul Normal 1.2-3.8 [facility] Comment on above: Performed By: #### C BC #### [facility] [address] [place] [address] Dr. Doreen Betancourt Lymphocytes/100 WBC (Bld) 55.3 % Normal 20.5-60.0 [facility] Comment on above: Performed By: #### C BC #### [facility] [address] [place] [address] Dr. Doreen Betancourt MANUAL DIFF REQ NO Normal [facility] Comment on above: Performed By: #### C BC #### [facility] [address] [place] [address] Dr. Doreen Betancourt MCH (RBC) [Entitic mass] 33.2 pg Normal 26.7-34.0 [facility] Comment on above: Performed By: #### C BC #### [facility] [address] [place] [address] Dr. Doreen Betancourt MCHC (RBC) [Mass/Vol] 32.0 g/dL Normal 29.9-35.2 [facility] Comment on above: Performed By: #### C BC #### [facility] [address] [place] [address] Dr. Doreen Betancourt MCV (RBC) [Entitic vol] 104.1 fL Critically high 81.0-99.0 [facility] Comment on above: Performed By: #### C BC #### [facility] [address] [place] [address] Dr. Doreen Betancourt MONO # 0.7 103/ul Normal 0.3-0.8 [facility] Comment on above: Performed By: #### C BC #### [facility] [address] [place] [address] Dr. Doreen Betancourt Monocytes/100 WBC (Bld) 18.7 % Critically high 1.7-12.0 [facility] Comment on above: Performed By: #### C BC #### [facility] [address] [place] [address] Dr. Doreen Betancourt NEUT # 0.9 103/ul Critically low 1.4-6.5 [facility] Comment on above: Performed By: #### C BC #### [facility] [address] [place] [address] Dr. Doreen Betancourt Neutrophils/100 WBC (Bld) 24.8 % Critically low 43.0-75.0 [facility] Comment on above: Performed By: #### C BC #### [facility] [address] [place] [address] Dr. Doreen Betancourt Platelet mean volume (Bld) [Entitic vol] 10.5 fL Normal 9.5-13.5 [facility] Comment on above: Performed By: #### C BC #### [facility] [address] [place] [address] Dr. Doreen Betancourt PLT 121 103/ul Critically low 150-450 [facility] Comment on above: Performed By: #### C BC #### [facility] [address] [place] [address] Dr. Doreen Betancourt RBC 3.94 106/ul Critically low 4.20-5.40 [facility] Comment on above: Performed By: #### C BC #### [facility] [address] [place] [address] Dr. Doreen Betancourt WBC 3.6 103/ul Critically low 4.0-11.0 [facility] Comment on above: Performed By: #### C BC #### [facility] [address] [place] [address] Dr. Doreen Betancourt MAGNESIUMon 11-16-2022 Magnesium [Mass/Vol] 2.0 mg/dL Normal 1.8-2.4 [facility] Comment on above: Performed By: #### M G, CMP #### [facility] [address] [place] [address] Dr. Doreen Betancourt PROF 14(COMP METB)on 023 Albumin [Mass/Vol] 3.7 g/dL Normal 3.4-5.0 [facility] Comment on above: Performed By: #### M G, CMP #### [facility] [address] [place] [address] Dr. Doreen Betancourt Albumin/Globulin [Mass ratio] 1.0 {ratio} Normal [facility] Comment on above: Performed By: #### M G, CMP #### [facility] [address] [place] [address] Dr. Doreen Betancourt ALP [Catalytic activity/Vol] 161 U/L Critically high 46-116 [facility] Comment on above: Performed By: #### M G, CMP #### [facility] [address] [address] [address] Doreen Betancourt ALT [Catalytic activity/Vol] 49 U/L Normal 14-59 [facility] Comment on above: Performed By: #### M G, CMP #### [facility] [address] [address] [address] Doreen Betancourt Anion gap [Moles/Vol] 9.8 mmol/L Normal [facility] Comment on above: Performed By: #### M G, CMP #### [facility] [address] [address] [address] Doreen Betancourt AST [Catalytic activity/Vol] 44 U/L Critically high 15-37 [facility] Comment on above: Performed By: #### M G, CMP #### [facility] [address] [address] [address] Doreen Betancourt Bilirubin [Mass/Vol] 0.4 mg/dL Normal 0.2-1.0 [facility] Comment on above: Performed By: #### M G, CMP #### [facility] [address] [address] [address] Doreen Betancourt Calcium [Mass/Vol] 9.6 mg/dL Normal 8.5-10.1 [facility] Comment on above: Performed By: #### M G, CMP #### [facility] [address] [address] [address] Doreen Betancourt Chloride [Moles/Vol] 106 mmol/L Normal 98-107 [facility] Comment on above: Performed By: #### M G, CMP #### [facility] [address] [address] [address] Doreen Betancourt CO2 [Moles/Vol] 30.1 mmol/L Normal 21.0-32.0 [facility] Comment on above: Performed By: #### M G, CMP #### [facility] [address] [address] [address] Doreen Betancourt Creatinine [Mass/Vol] 0.68 mg/dL Normal 0.55-1.02 [facility] Comment on above: Performed By: #### M G, CMP #### [facility] [address] [address] [address] Doreen Betancourt EGFR-AF ZAMBIAN >60 Normal >=60 [facility] Comment on above: Performed By: #### M G, CMP #### [facility] [address] [address] [address] Doreen Betancourt EGFR-NON AF ZAMBIAN >60 Normal >=60 [facility] Comment on above: Performed By: #### M G, CMP #### [facility] [address] [address] [address] Doreen Betancourt Globulin (S) [Mass/Vol] 3.7 g/dL Normal [facility] [facility] Comment on above: Performed By: #### M G, CMP #### [facility] [address] [place] [address] Dr. Doreen Betancourt Glucose [Mass/Vol] 107 mg/dL Critically high 74-106 [facility] Comment on above: Performed By: #### M G, CMP #### [facility] [address] [place] [address] Dr. Doreen Betancourt Potassium [Moles/Vol] 4.9 mmol/L Normal 3.5-5.1 [facility] Comment on above: Performed By: #### M G, CMP #### [facility] [address] [place] [address] Dr. Doreen Betancourt Protein [Mass/Vol] 7.4 g/dL Normal 6.4-8.2 [facility] Comment on above: Performed By: #### M G, CMP #### [facility] [address] [address] [address] Doreen Betancourt Sodium [Moles/Vol] 141 mmol/L Normal 136-145 [facility] Comment on above: Performed By: #### M G, CMP #### [facility] [address] [place] [address] Dr. Doreen Betancourt Urea nitrogen [Mass/Vol] 11.0 mg/dL Normal 7.0-18.0 [facility] Comment on above: Performed By: #### M G, CMP #### [facility] [address] [place] [address] Dr. Doreen Betancourt Urea nitrogen/Creatinine [Mass ratio] 16.2 mg/mg Normal [facility] Comment on above: Performed By: #### M G, CMP #### [facility] [address] [place] [address] Dr. Doreen Betancourt CBC AUTO DIFFon 11-02-2022 BASO # 0.0 103/ul Normal 0.0-0.1 [facility] Comment on above: Performed By: #### M G, CMP #### [facility] [address] [place] [address] Dr. Doreen Betancourt Basophils/100 WBC (Bld) 0.5 % Normal 0.2-2.0 [facility] Comment on above: Performed By: #### M G, CMP #### [facility] [address] [place] [address] Dr. Doreen Betancourt EO # 0.0 103/ul Normal 0.0-0.7 [facility] Comment on above: Performed By: #### M G, CMP #### [facility] [address] [place] [address] Dr. Doreen Betancourt Eosinophils/100 WBC (Bld) 0.8 % Critically low 0.9-7.0 [facility] Comment on above: Performed By: #### M G, CMP #### [facility] [address] [place] [address] Dr. Doreen Betancourt Erythrocyte distribution width (RBC) [Ratio] 13.2 % Normal 11.0-15.0 [facility] Comment on above: Performed By: #### M G, CMP #### [facility] [address] [place] [address] Dr. Doreen Betancourt Hematocrit (Bld) [Volume fraction] 40.7 % Normal 36.0-48.0 [facility] Comment on above: Performed By: #### M G, CMP #### [facility] [address] [place] [address] Dr. Doreen Betancourt Hemoglobin (Bld) [Mass/Vol] 13.5 g/dL Normal 12.0-16.0 [facility] Comment on above: Performed By: #### M G, CMP #### [facility] [address] [place] [address] Dr. Doreen Betancourt IG # 0.00 10e3/ul Normal 0.00-0.03 [facility] Comment on above: Performed By: #### M G, CMP #### [facility] [address] [place] [address] Dr. Doreen Betancourt IG % 0.0 % Normal 0.0-0.5 [facility] Comment on above: Performed By: #### M G, CMP #### [facility] [address] [place] [address] Dr. Doreen Betancourt LYMPH # 1.9 103/ul Normal 1.2-3.8 [facility] Comment on above: Performed By: #### M G, CMP #### [facility] [address] [place] [address] Dr. Doreen Betancourt Lymphocytes/100 WBC (Bld) 51.8 % Normal 20.5-60.0 [facility] Comment on above: Performed By: #### M G, CMP #### [facility] [address] [place] [address] Dr. Doreen Betancourt MANUAL DIFF REQ NO Normal [facility] Comment on above: Performed By: #### M G, CMP #### [facility] [address] [place] [address] Dr. Doreen Betancourt MCH (RBC) [Entitic mass] 34.3 pg Critically high 26.7-34.0 [facility] Comment on above: Performed By: #### M G, CMP #### [facility] [address] [place] [address] Dr. Doreen Betancourt MCHC (RBC) [Mass/Vol] 33.2 g/dL Normal 29.9-35.2 [facility] Comment on above: Performed By: #### M G, CMP #### [facility] [address] [place] [address] Dr. Doreen Betancourt MCV (RBC) [Entitic vol] 103.3 fL Critically high 81.0-99.0 [facility] Comment on above: Performed By: #### M G, CMP #### [facility] [address] [place] [address] Dr. Doreen Betancourt MONO # 0.5 103/ul Normal 0.3-0.8 [facility] Comment on above: Performed By: #### M G, CMP #### [facility] [address] [place] [address] Dr. Doreen Betancourt Monocytes/100 WBC (Bld) 13.9 % Critically high 1.7-12.0 [facility] Comment on above: Performed By: #### M G, CMP #### [facility] [address] [place] [address] Dr. Doreen Betancourt NEUT # 1.2 103/ul Critically low 1.4-6.5 [facility] Comment on above: Performed By: #### M G, CMP #### [facility] [address] [place] [address] Dr. Doreen Betancourt Neutrophils/100 WBC (Bld) 33.0 % Critically low 43.0-75.0 [facility] Comment on above: Performed By: #### M G, CMP #### [facility] [address] [place] [address] Dr. Doreen Betancourt Platelet mean volume (Bld) [Entitic vol] 10.0 fL Normal 9.5-13.5 [facility] Comment on above: Performed By: #### M G, CMP #### [facility] [address] [place] [address] Dr. Doreen Betancourt PLT 129 103/ul Critically low 150-450 [facility] Comment on above: Performed By: #### M G, CMP #### [facility] [address] [place] [address] Dr. Doreen Betancourt RBC 3.94 106/ul Critically low 4.20-5.40 [facility] Comment on above: Performed By: #### M G, CMP #### [facility] [address] [place] [address] Dr. Doreen Betancourt WBC 3.7 103/ul Critically low 4.0-11.0 [facility] Comment on above: Performed By: #### M G, CMP #### [facility] [address] [place] [address] Dr. Doreen Betancourt MAGNESIUMon 11-02-2022 Magnesium [Mass/Vol] 2.0 mg/dL Normal 1.8-2.4 [facility] Comment on above: Performed By: #### M G, CMP #### [facility] [address] [place] [address] Dr. Doreen Betancourt PROF 14(COMP METB)on 023 Albumin [Mass/Vol] 3.7 g/dL Normal 3.4-5.0 [facility] Comment on above: Performed By: #### Gay Martino, CMP #### [facility] [address] [place] [address] Dr. Doreen Betancourt Albumin/Globulin [Mass ratio] 1.0 {ratio} Normal [facility] Comment on above: Performed By: #### Gay Martino, CMP #### [facility] [address] [place] [address] Dr. Doreen Betancourt ALP [Catalytic activity/Vol] 133 U/L Critically high 46-116 [facility] Comment on above: Performed By: #### Gay Martino, CMP #### [facility] [address] [place] [address] Dr. Doreen Betancourt ALT [Catalytic activity/Vol] 47 U/L Normal 14-59 [facility] Comment on above: Performed By: #### Gay Martino, CMP #### [facility] [address] [place] [address] Dr. Doreen Betancourt Anion gap [Moles/Vol] 10.8 mmol/L Normal [facility] Comment on above: Performed By: #### M G, CMP #### [facility] [address] [place] [address] Dr. Doreen Betancourt AST [Catalytic activity/Vol] 39 U/L Critically high 15-37 [facility] Comment on above: Performed By: #### M G, CMP #### [facility] [address] [place] [address] Dr. Doreen Betancourt Bilirubin [Mass/Vol] 0.5 mg/dL Normal 0.2-1.0 [facility] Comment on above: Performed By: #### M G, CMP #### [facility] [address] [place] [address] Dr. Doreen Betancourt Calcium [Mass/Vol] 9.4 mg/dL Normal 8.5-10.1 [facility] Comment on above: Performed By: #### M G, CMP #### [facility] [address] [place] [address] Dr. Doreen Betancourt Chloride [Moles/Vol] 107 mmol/L Normal 98-107 [facility] Comment on above: Performed By: #### M G, CMP #### [facility] [address] [place] [address] Dr. Doreen Betancourt CO2 [Moles/Vol] 27.7 mmol/L Normal 21.0-32.0 [facility] Comment on above: Performed By: #### Gay G, CMP #### [facility] [address] [place] [address] Dr. Doreen Betancourt Creatinine [Mass/Vol] 0.70 mg/dL Normal 0.55-1.02 [facility] Comment on above: Performed By: #### M G, CMP #### [facility] [address] [place] [address] Dr. Doreen Betancourt EGFR-AF ZAMBIAN >60 Normal >=60 [facility] Comment on above: Performed By: #### Gay G, CMP #### [facility] [address] [place] [address] Dr. Doreen Betancourt EGFR-NON AF ZAMBIAN >60 Normal >=60 [facility] Comment on above: Performed By: #### M G, CMP #### [facility] [address] [place] [address] Dr. Doreen Betancourt Globulin (S) [Mass/Vol] 3.7 g/dL Normal [facility] Comment on above: Performed By: #### M G, CMP #### [facility] [address] [place] [address] Dr. Doreen Betancourt Glucose [Mass/Vol] 99 mg/dL Normal 74-106 [facility] Comment on above: Performed By: #### M G, CMP #### [facility] [address] [place] [address] Dr. Doreen Betancourt Potassium [Moles/Vol] 4.5 mmol/L Normal 3.5-5.1 [facility] Comment on above: Performed By: #### M G, CMP #### [facility] [address] [place] [address] Dr. Doreen Betancourt Protein [Mass/Vol] 7.4 g/dL Normal 6.4-8.2 [facility] Comment on above: Performed By: #### M G, CMP #### [facility] [address] [place] [address] Dr. Doreen Betancourt Sodium [Moles/Vol] 141 mmol/L Normal 136-145 [facility] Comment on above: Performed By: #### M G, CMP #### [facility] [address] [place] [address] Dr. Doreen Betancourt Urea nitrogen [Mass/Vol] 13.0 mg/dL Normal 7.0-18.0 [facility] Comment on above: Performed By: #### M G, CMP #### [facility] [address] [place] [address] Dr. Doreen Betancourt Urea nitrogen/Creatinine [Mass ratio] 18.6 mg/mg Normal [facility] Comment on above: Performed By: #### M G, CMP #### [facility] [address] [place] [address] Dr. Doreen Betancourt CBC AUTO DIFFon 10-19-2022 BASO # 0.1 103/ul Normal 0.0-0.1 [facility] Comment on above: Performed By: #### C BC #### [facility] [address] [place] [address] Dr. Doreen Betancourt Basophils/100 WBC (Bld) 1.0 % Normal 0.2-2.0 [facility] Comment on above: Performed By: #### C BC #### [facility] [address] [place] [address] Dr. Doreen Betancourt EO # 0.0 103/ul Normal 0.0-0.7 [facility] Comment on above: Performed By: #### C BC #### [facility] [address] [place] [address] Dr. Doreen Betancourt Eosinophils/100 WBC (Bld) 0.8 % Critically low 0.9-7.0 [facility] Comment on above: Performed By: #### C BC #### [facility] [address] [place] [address] Dr. Doreen Betancourt Erythrocyte distribution width (RBC) [Ratio] 13.2 % Normal 11.0-15.0 [facility] Comment on above: Performed By: #### C BC #### [facility] [address] [place] [address] Dr. Doreen Betancourt Hematocrit (Bld) [Volume fraction] 40.3 % Normal 36.0-48.0 [facility] Comment on above: Performed By: #### C BC #### [facility] [address] [place] [address] Dr. Doreen Betancourt Hemoglobin (Bld) [Mass/Vol] 13.3 g/dL Normal 12.0-16.0 [facility] Comment on above: Performed By: #### C BC #### [facility] [address] [place] [address] Dr. Doreen Betancourt IG # 0.02 10e3/ul Normal 0.00-0.03 [facility] Comment on above: Performed By: #### C BC #### [facility] [address] [place] [address] Dr. Doreen Betancourt IG % 0.4 % Normal 0.0-0.5 [facility] Comment on above: Performed By: #### C BC #### [facility] [address] [place] [address] Dr. Doreen Betancourt LYMPH # 1.8 103/ul Normal 1.2-3.8 [facility] Comment on above: Performed By: #### C BC #### [facility] [address] [place] [address] Dr. Doreen Betancourt Lymphocytes/100 WBC (Bld) 36.8 % Normal 20.5-60.0 [facility] Comment on above: Performed By: #### C BC #### [facility] [address] [place] [address] Dr. Doreen Betancourt MANUAL DIFF REQ NO Normal [facility] Comment on above: Performed By: #### C BC #### [facility] [address] [place] [address] Dr. Doreen Betancourt MCH (RBC) [Entitic mass] 33.8 pg Normal 26.7-34.0 [facility] Comment on above: Performed By: #### C BC #### [facility] [address] [place] [address] Dr. Doreen Betancourt MCHC (RBC) [Mass/Vol] 33.0 g/dL Normal 29.9-35.2 [facility] Comment on above: Performed By: #### C BC #### [facility] [address] [place] [address] Dr. Doreen Betancourt MCV (RBC) [Entitic vol] 102.5 fL Critically high 81.0-99.0 [facility] Comment on above: Performed By: #### C BC #### [facility] [address] [place] [address] Dr. Doreen Betancourt MONO # 0.6 103/ul Normal 0.3-0.8 [facility] Comment on above: Performed By: #### C BC #### [facility] [address] [place] [address] Dr. Doreen Betancourt Monocytes/100 WBC (Bld) 12.3 % Critically high 1.7-12.0 [facility] Comment on above: Performed By: #### C BC #### [facility] [address] [place] [address] Dr. Doreen Betancourt NEUT # 2.4 103/ul Normal 1.4-6.5 [facility] Comment on above: Performed By: #### C BC #### [facility] [address] [place] [address] Dr. Doreen Betancourt Neutrophils/100 WBC (Bld) 48.7 % Normal 43.0-75.0 [facility] Comment on above: Performed By: #### C BC #### [facility] [address] [place] [address] Dr. Doreen Betancourt Platelet mean volume (Bld) [Entitic vol] 10.3 fL Normal 9.5-13.5 [facility] Comment on above: Performed By: #### C BC #### [facility] [address] [place] [address] Dr. Doreen Betancourt PLT 239 103/ul Normal 150-450 [facility] Comment on above: Performed By: #### C BC #### [facility] [address] [place] [address] Dr. Doreen Betancourt RBC 3.93 106/ul Critically low 4.20-5.40 [facility] Comment on above: Performed By: #### C BC #### [facility] [address] [place] [address] Dr. Doreen Betancourt WBC 4.9 103/ul Normal 4.0-11.0 [facility] Comment on above: Performed By: #### C BC #### [facility] [address] [place] [address] Dr. Doreen Betancourt MAGNESIUMon 10-19-2022 Magnesium [Mass/Vol] 1.9 mg/dL Normal 1.8-2.4 [facility] Comment on above: Performed By: #### M G, CMP #### [facility] [address] [place] [address] Dr. Doreen Betancourt PROF 14(COMP METB)on 023 Albumin [Mass/Vol] 3.5 g/dL Normal 3.4-5.0 [facility] Comment on above: Performed By: #### C MP, MG #### [facility] [address] [place] [address] Dr. Doreen Betancourt Albumin/Globulin [Mass ratio] 0.9 {ratio} Normal [facility] Comment on above: Performed By: #### C MP, MG #### [facility] [address] [place] [address] Dr. Doreen Betancourt ALP [Catalytic activity/Vol] 153 U/L Critically high 46-116 [facility] Comment on above: Performed By: #### C MP, MG #### [facility] [address] [place] [address] Dr. Doreen Betancourt ALT [Catalytic activity/Vol] 36 U/L Normal 14-59 [facility] Comment on above: Performed By: #### C MP, MG #### [facility] [address] [place] [address] Dr. Doreen Betancourt Anion gap [Moles/Vol] 11.7 mmol/L Normal [facility] Comment on above: Performed By: #### C MP, MG #### [facility] [address] [place] [address] Dr. Doreen Betancourt AST [Catalytic activity/Vol] 30 U/L Normal 15-37 [facility] Comment on above: Performed By: #### C MP, MG #### [facility] [address] [place] [address] Dr. Doreen Betancourt Bilirubin [Mass/Vol] 0.5 mg/dL Normal 0.2-1.0 [facility] Comment on above: Performed By: #### C MP, MG #### [facility] [address] [place] [address] Dr. Doreen Betancourt Calcium [Mass/Vol] 9.2 mg/dL Normal 8.5-10.1 [facility] Comment on above: Performed By: #### C MP, MG #### [facility] [address] [place] [address] Dr. Doreen Betancourt Chloride [Moles/Vol] 105 mmol/L Normal 98-107 [facility] Comment on above: Performed By: #### C MP, MG #### [facility] [address] [place] [address] Dr. Doreen Betancourt CO2 [Moles/Vol] 27.3 mmol/L Normal 21.0-32.0 [facility] Comment on above: Performed By: #### C MP, MG #### [facility] [address] [place] [address] Dr. Doreen Betancourt Creatinine [Mass/Vol] 0.75 mg/dL Normal 0.55-1.02 [facility] Comment on above: Performed By: #### C MP, MG #### [facility] [address] [place] [address] Dr. Doreen Betancourt EGFR-AF ZAMBIAN >60 Normal >=60 [facility] Comment on above: Performed By: #### C MP, MG #### [facility] [address] [place] [address] Dr. Doreen Betancourt EGFR-NON AF ZAMBIAN >60 Normal >=60 [facility] Comment on above: Performed By: #### C MP, MG #### [facility] [address] [place] [address] Dr. Doreen Betancourt Globulin (S) [Mass/Vol] 4.0 g/dL Normal [facility] Comment on above: Performed By: #### C MP, MG #### [facility] [address] [place] [address] Dr. Doreen Betancourt Glucose [Mass/Vol] 89 mg/dL Normal 74-106 [facility] Comment on above: Performed By: #### C MP, MG #### [facility] [address] [place] [address] Dr. Doreen Betancourt Potassium [Moles/Vol] 4.0 mmol/L Normal 3.5-5.1 [facility] Comment on above: Performed By: #### C MP, MG #### [facility] [address] [place] [address] Dr. Doreen Betancourt Protein [Mass/Vol] 7.5 g/dL Normal 6.4-8.2 [facility] Comment on above: Performed By: #### C MP, MG #### [facility] [address] [place] [address] Dr. Doreen Betancourt Sodium [Moles/Vol] 140 mmol/L Normal 136-145 [facility] Comment on above: Performed By: #### C MP, MG #### [facility] [address] [place] [address] Dr. Doreen Betancourt Urea nitrogen [Mass/Vol] 18.0 mg/dL Normal 7.0-18.0 [facility] Comment on above: Performed By: #### C MP, MG #### [facility] [address] [place] [address] Dr. Doreen Betancourt Urea nitrogen/Creatinine [Mass ratio] 24.0 mg/mg Normal [facility] Comment on above: Performed By: #### C MP, MG #### [facility] [address] [place] [address] Dr. Doreen Betancourt Magnesium [Mass/volume] in S daljit or PlasmaOrdered By: Isaías Jordan on 09-23-2022 Magnesium [Mass/Vol] 2.2 mg/dL 1.9-2.7 [facility] Magnesium [Mass/Vol] Magnesium [Mass/vol ume] in Serum or Plasma 1.9-2.7 [facility] CBC AUTO DIFFon 09-14-2022 BASO # 0.0 103/ul Normal 0.0-0.1 [facility] Comment on above: Performed By: #### C BC #### [facility] [address] [place] [address] Dr. Doreen Betancourt Basophils/100 WBC (Bld) 0.3 % Normal 0.2-2.0 [facility] Comment on above: Performed By: #### C BC #### [facility] [address] [place] [address] Dr. Doreen Betancourt EO # 0.0 103/ul Normal 0.0-0.7 [facility] Comment on above: Performed By: #### C BC #### [facility] [address] [place] [address] Dr. Doreen Betancourt Eosinophils/100 WBC (Bld) 0.9 % Normal 0.9-7.0 [facility] Comment on above: Performed By: #### C BC #### [facility] [address] [place] [address] Dr. Doreen Betancourt Erythrocyte distribution width (RBC) [Ratio] 16.3 % Critically high 11.0-15.0 [facility] Comment on above: Performed By: #### C BC #### [facility] [address] [place] [address] Dr. Doreen Betancourt Hematocrit (Bld) [Volume fraction] 37.3 % Normal 36.0-48.0 [facility] Comment on above: Performed By: #### C BC #### [facility] [address] [place] [address] Dr. Doreen Betancourt Hemoglobin (Bld) [Mass/Vol] 12.4 g/dL Normal 12.0-16.0 [facility] Comment on above: Performed By: #### C BC #### [facility] [address] [place] [address] Dr. Doreen Betancourt IG # 0.01 10e3/ul Normal 0.00-0.03 [facility] Comment on above: Performed By: #### C BC #### [facility] [address] [place] [address] Dr. Doreen Betancourt IG % 0.3 % Normal 0.0-0.5 [facility] Comment on above: Performed By: #### C BC #### [facility] [address] [place] [address] Dr. Doreen Betancourt LYMPH # 1.1 103/ul Critically low 1.2-3.8 [facility] [facility] Comment on above: Performed By: #### C BC #### [facility] [address] [place] [address] Dr. Doreen Betancourt Lymphocytes/100 WBC (Bld) 30.7 % Normal 20.5-60.0 [facility] Comment on above: Performed By: #### C BC #### [facility] [address] [place] [address] Dr. Doreen Betancourt MANUAL DIFF REQ NO Normal [facility] Comment on above: Performed By: #### C BC #### [facility] [address] [place] [address] Dr. Doreen Betancourt MCH (RBC) [Entitic mass] 34.3 pg Critically high 26.7-34.0 [facility] Comment on above: Performed By: #### C BC #### [facility] [address] [place] [address] Dr. Doreen Betancourt MCHC (RBC) [Mass/Vol] 33.2 g/dL Normal 29.9-35.2 [facility] Comment on above: Performed By: #### C BC #### [facility] [address] [address] [address] Doreen Betancourt MCV (RBC) [Entitic vol] 103.3 fL Critically high 81.0-99.0 [facility] Comment on above: Performed By: #### C BC #### [facility] [address] [address] [address] Doreen Betancourt MONO # 0.4 103/ul Normal 0.3-0.8 [facility] Comment on above: Performed By: #### C BC #### [facility] [address] [place] [address] Dr. Doreen Betancourt Monocytes/100 WBC (Bld) 11.4 % Normal 1.7-12.0 [facility] Comment on above: Performed By: #### C BC #### [facility] [address] [place] [address] Dr. Doreen Betancourt NEUT # 2.0 103/ul Normal 1.4-6.5 [facility] Comment on above: Performed By: #### C BC #### [facility] [address] [place] [address] Dr. Doreen Betancourt Neutrophils/100 WBC (Bld) 56.4 % Normal 43.0-75.0 [facility] Comment on above: Performed By: #### C BC #### [facility] [address] [place] [address] Dr. Doreen Betancourt Platelet mean volume (Bld) [Entitic vol] 10.0 fL Normal 9.5-13.5 [facility] Comment on above: Performed By: #### C BC #### [facility] [address] [place] [address] Dr. Doreen Betancourt PLT 128 103/ul Critically low 150-450 [facility] Comment on above: Performed By: #### C BC #### [facility] [address] [place] [address] Dr. Doreen Betancourt RBC 3.61 106/ul Critically low 4.20-5.40 [facility] Comment on above: Performed By: #### C BC #### [facility] [address] [place] [address] Dr. Doreen Betancourt WBC 3.5 103/ul Critically low 4.0-11.0 [facility] Comment on above: Performed By: #### C BC #### [facility] [address] [place] [address] Dr. Doreen Betancourt MAGNESIUMon 09-14-2022 Magnesium [Mass/Vol] 1.9 mg/dL Normal 1.8-2.4 [facility] Comment on above: Performed By: #### C VDTBH #### [facility] [address] [place] [address] Dr. Doreen Betancourt PROF 14(COMP METB)on 023 Albumin [Mass/Vol] 3.7 g/dL Normal 3.4-5.0 [facility] Comment on above: Performed By: #### C VDTBH #### [facility] [address] [place] [address] Dr. Doreen Betancourt Albumin/Globulin [Mass ratio] 1.1 {ratio} Normal [facility] Comment on above: Performed By: #### C VDTBH #### [facility] [address] [place] [address] Dr. Doreen Betancourt ALP [Catalytic activity/Vol] 138 U/L Critically high 46-116 [facility] Comment on above: Performed By: #### C VDTBH #### [facility] [address] [place] [address] Dr. Doreen Betancourt ALT [Catalytic activity/Vol] 42 U/L Normal 14-59 [facility] Comment on above: Performed By: #### C VDTBH #### [facility] [address] [place] [address] Dr. Doreen Betancourt Anion gap [Moles/Vol] 11.0 mmol/L Normal [facility] Comment on above: Performed By: #### C VDTBH #### [facility] [address] [place] [address] Dr. Doreen Betancourt AST [Catalytic activity/Vol] 36 U/L Normal 15-37 [facility] Comment on above: Performed By: #### C VDTBH #### [facility] [address] [place] [address] Dr. Doreen Betancourt Bilirubin [Mass/Vol] 0.5 mg/dL Normal 0.2-1.0 [facility] Comment on above: Performed By: #### C VDTBH #### [facility] [address] [place] [address] Dr. Doreen Betancourt Calcium [Mass/Vol] 9.6 mg/dL Normal 8.5-10.1 [facility] Comment on above: Performed By: #### C VDTBH #### [facility] [address] [place] [address] Dr. Doreen Betancourt Chloride [Moles/Vol] 104 mmol/L Normal 98-107 [facility] Comment on above: Performed By: #### C VDTBH #### [facility] [address] [place] [address] Dr. Doreen Betancourt CO2 [Moles/Vol] 29.8 mmol/L Normal 21.0-32.0 [facility] Comment on above: Performed By: #### C VDTBH #### [facility] [address] [place] [address] Dr. Doreen Betancourt Creatinine [Mass/Vol] 0.62 mg/dL Normal 0.55-1.02 [facility] Comment on above: Performed By: #### C VDTBH #### [facility] [address] [place] [address] Dr. Doreen Betancourt EGFR-AF ZAMBIAN >60 Normal >=60 [facility] Comment on above: Performed By: #### C VDTBH #### [facility] [address] [place] [address] Dr. Doreen Betancourt EGFR-NON AF ZAMBIAN >60 Normal >=60 [facility] Comment on above: Performed By: #### C VDTBH #### [facility] [address] [place] [address] Dr. Doreen Betancourt Globulin (S) [Mass/Vol] 3.4 g/dL Normal [facility] Comment on above: Performed By: #### C VDTBH #### [facility] [address] [place] [address] Dr. Doreen Betancourt Glucose [Mass/Vol] 115 mg/dL Critically high 74-106 [facility] Comment on above: Performed By: #### C VDTBH #### [facility] [address] [place] [address] Dr. Doreen Betancourt Potassium [Moles/Vol] 4.8 mmol/L Normal 3.5-5.1 [facility] Comment on above: Performed By: #### C VDTBH #### [facility] [address] [place] [address] Dr. Doreen Betancourt Protein [Mass/Vol] 7.1 g/dL Normal 6.4-8.2 [facility] Comment on above: Performed By: #### C VDTBH #### [facility] [address] [place] [address] Dr. Doreen Betancourt Sodium [Moles/Vol] 140 mmol/L Normal 136-145 [facility] Comment on above: Performed By: #### C VDTBH #### [facility] [address] [place] [address] Dr. Doreen Betancourt Urea nitrogen [Mass/Vol] 14.0 mg/dL Normal 7.0-18.0 [facility] Comment on above: Performed By: #### C VDTBH #### [facility] [address] [place] [address] Dr. Doreen Betancourt Urea nitrogen/Creatinine [Mass ratio] 22.6 mg/mg Normal [facility] Comment on above: Performed By: #### C VDTBH #### [facility] [address] [place] [address] Dr. Doreen Betancourt HEP B SURFACE ANTIGEN SCREEN on 09-03-2022 HBsAg Screen Negative Normal Negative [facility] Comment on above: Performed By: #### C VDTBH #### [facility] [address] [place] [address] Dr. Doreen Betancourt HEPATITIS B SURFACE ANTIBODY , QUANTon 09-03-2022 Hepatitis B Surf AB Quant 46.7 mIU/mL Normal Immunity>9 .9 [facility] Comment on above: Result Comment: Stat us of Immunity Anti-HBs Level Inconsistent with Immunity 0.0 - 9.9 Consistent with Immunity >9.9 Performed By: #### Gay Martino, CMP #### [facility] [address] [place] [address] Dr. Doreen Betancourt HEPATITIS C ANTIBODYon 09-03 Hep C Virus Ab Non-Reactive Normal Non Reactive [facility] Comment on above: Result Comment: HCV antibody alone does not differentiate between previously resolved infection and active infection. Equivocal and Reactive HCV antibody results should be followed up with an HCV RNA test to support the diagnosis of active HCV infection. Performed By: #### C VDTB #### [facility] [address] [place] [address] Dr. Doreen Betancourt RPR QUANTon 09-03-2022 Rapid Plasma Reagin, Quant Non-Reactive Normal NonRea<1:1 [facility] Comment on above: Result Comment: Plepatricio tinajero Note: This test does not meet current guidelines for screening and diagnosis of syphilis. This test is intended for following treatment response in patients being treated for syphilis infection. To screen for syphilis infection, a reflex cascade that includes both RPR and a treponema-specific assay should be utilized, such as Treponema pallidum (Syphilis) Screening Stanley (981607) or Rapid Plasma Reagin (RPR) Test With Reflex to Quantitative RPR and Confirmatory Treponema pallidum Antibodies (534899). Performed By: #### Gay Martino, CMP #### [facility] [address] [place] [address] Dr. Doreen Betancourt HIV 1/2 RAPID (EXPOSURE ONLY )on 09-01-2022 HIV AB Non-Reactive Normal NON-REACTI VE [facility] Comment on above: Performed By: #### Gay Martino, CMP #### [facility] [address] [place] [address] Dr. Doreen Betancourt HIV AG Non-Reactive Normal NON-REACTI VE [facility] Comment on above: Performed By: #### M G, CMP #### [facility] [address] [place] [address] Dr. Doreen Betancourt INTERNAL CONTROLS Within Normal Limits Normal Wi thin Normal Limits [facility] Comment on above: Performed By: #### M G, CMP #### [facility] [address] [place] [address] Dr. Doreen Betancourt RAPID HIV INFO SEE BELOW Normal [facility] Comment on above: Result Comment: This test is used for the initial screening of the exposure source. Confirmation of all reactive results will be obtained through reference lab testing. Performed By: #### M G, CMP #### [facility] [address] [place] [address] Dr. Doreen Betancourt CBC AUTO DIFFon 08-31-2022 BASO # 0.0 103/ul Normal 0.0-0.1 [facility] Comment on above: Performed By: #### M G, CMP #### [facility] [address] [place] [address] Dr. Doreen Betancourt Basophils/100 WBC (Bld) 0.7 % Normal 0.2-2.0 [facility] Comment on above: Performed By: #### M G, CMP #### [facility] [address] [place] [address] Dr. Doreen Betancourt EO # 0.0 103/ul Normal 0.0-0.7 [facility] Comment on above: Performed By: #### M G, CMP #### [facility] [address] [place] [address] Dr. Doreen Betancourt Eosinophils/100 WBC (Bld) 0.7 % Critically low 0.9-7.0 [facility] Comment on above: Performed By: #### M G, CMP #### [facility] [address] [place] [address] Dr. Doreen Betancourt Erythrocyte distribution width (RBC) [Ratio] 18.2 % Critically high 11.0-15.0 [facility] Comment on above: Performed By: #### M G, CMP #### [facility] [address] [place] [address] Dr. Doreen Betancourt Hematocrit (Bld) [Volume fraction] 37.8 % Normal 36.0-48.0 [facility] Comment on above: Performed By: #### M G, CMP #### [facility] [address] [place] [address] Dr. Doreen Betancourt Hemoglobin (Bld) [Mass/Vol] 12.3 g/dL Normal 12.0-16.0 [facility] Comment on above: Performed By: #### M G, CMP #### [facility] [address] [place] [address] Dr. Doreen Betancourt IG # 0.01 10e3/ul Normal 0.00-0.03 [facility] Comment on above: Performed By: #### M G, CMP #### [facility] [address] [place] [address] Dr. Doreen Betancourt IG % 0.3 % Normal 0.0-0.5 [facility] Comment on above: Performed By: #### M G, CMP #### [facility] [address] [place] [address] Dr. Doreen Betancourt LYMPH # 1.5 103/ul Normal 1.2-3.8 [facility] Comment on above: Performed By: #### M G, CMP #### [facility] [address] [place] [address] Dr. Doreen Betancourt Lymphocytes/100 WBC (Bld) 49.5 % Normal 20.5-60.0 [facility] Comment on above: Performed By: #### M G, CMP #### [facility] [address] [place] [address] Dr. Doreen Betancourt MANUAL DIFF REQ NO Normal [facility] Comment on above: Performed By: #### M G, CMP #### [facility] [address] [place] [address] Dr. Doreen Betancourt MCH (RBC) [Entitic mass] 33.3 pg Normal 26.7-34.0 [facility] Comment on above: Performed By: #### M G, CMP #### [facility] [address] [place] [address] Dr. Doreen Betancourt MCHC (RBC) [Mass/Vol] 32.5 g/dL Normal 29.9-35.2 [facility] Comment on above: Performed By: #### M G, CMP #### [facility] [address] [place] [address] Dr. Doreen Betancourt MCV (RBC) [Entitic vol] 102.4 fL Critically high 81.0-99.0 [facility] Comment on above: Performed By: #### M G, CMP #### [facility] [address] [place] [address] Dr. Doreen Betancourt MONO # 0.5 103/ul Normal 0.3-0.8 [facility] Comment on above: Performed By: #### M G, CMP #### [facility] [address] [place] [address] Dr. Doreen Betancourt Monocytes/100 WBC (Bld) 14.7 % Critically high 1.7-12.0 [facility] Comment on above: Performed By: #### M G, CMP #### [facility] [address] [place] [address] Dr. Doreen Betancourt NEUT # 1.1 103/ul Critically low 1.4-6.5 [facility] Comment on above: Performed By: #### M G, CMP #### [facility] [address] [place] [address] Dr. Doreen Betancourt Neutrophils/100 WBC (Bld) 34.1 % Critically low 43.0-75.0 [facility] Comment on above: Performed By: #### M G, CMP #### [facility] [address] [place] [address] Dr. Doreen Betancourt Platelet mean volume (Bld) [Entitic vol] 11.1 fL Normal 9.5-13.5 [facility] Comment on above: Performed By: #### M G, CMP #### [facility] [address] [place] [address] Dr. Doreen Betancourt PLT 117 103/ul Critically low 150-450 [facility] Comment on above: Performed By: #### M G, CMP #### [facility] [address] [place] [address] Dr. Doreen Betancourt RBC 3.69 106/ul Critically low 4.20-5.40 [facility] Comment on above: Performed By: #### M G, CMP #### [facility] [address] [place] [address] Dr. Doreen Betancourt WBC 3.1 103/ul Critically low 4.0-11.0 [facility] Comment on above: Performed By: #### M G, CMP #### [facility] [address] [place] [address] Dr. Doreen Betancourt MAGNESIUMon 08-31-2022 Magnesium [Mass/Vol] 2.0 mg/dL Normal 1.8-2.4 [facility] Comment on above: Performed By: #### Gay Martino, CMP #### [facility] [address] [place] [address] Dr. Doreen Betancourt PROF 14(COMP METB)on 023 Albumin [Mass/Vol] 3.4 g/dL Normal 3.4-5.0 [facility] Comment on above: Performed By: #### Gay Martino, CMP #### [facility] [address] [place] [address] Dr. Doreen Betancourt Albumin/Globulin [Mass ratio] 1.0 {ratio} Normal [facility] Comment on above: Performed By: #### Gay Martino, CMP #### [facility] [address] [place] [address] Dr. Doreen Betancourt ALP [Catalytic activity/Vol] 121 U/L Critically high 46-116 [facility] Comment on above: Performed By: #### M G, CMP #### [facility] [address] [place] [address] Dr. Doreen Betancourt ALT [Catalytic activity/Vol] 52 U/L Normal 14-59 [facility] Comment on above: Performed By: #### M G, CMP #### [facility] [address] [place] [address] Dr. Doreen Betancourt Anion gap [Moles/Vol] 11.5 mmol/L Normal [facility] Comment on above: Performed By: #### M G, CMP #### [facility] [address] [place] [address] Dr. Doreen Betancourt AST [Catalytic activity/Vol] 34 U/L Normal 15-37 [facility] Comment on above: Performed By: #### M G, CMP #### [facility] [address] [place] [address] Dr. Doreen Betancourt Bilirubin [Mass/Vol] 0.4 mg/dL Normal 0.2-1.0 [facility] Comment on above: Performed By: #### M G, CMP #### [facility] [address] [place] [address] Dr. Doreen Betancourt Calcium [Mass/Vol] 9.5 mg/dL Normal 8.5-10.1 [facility] Comment on above: Performed By: #### M G, CMP #### [facility] [address] [place] [address] Dr. Doreen Betancourt Chloride [Moles/Vol] 106 mmol/L Normal 98-107 [facility] Comment on above: Performed By: #### M G, CMP #### [facility] [address] [place] [address] Dr. Doreen Betancourt CO2 [Moles/Vol] 28.6 mmol/L Normal 21.0-32.0 [facility] Comment on above: Performed By: #### M G, CMP #### [facility] [address] [place] [address] Dr. Doreen Betancourt Creatinine [Mass/Vol] 0.60 mg/dL Normal 0.55-1.02 [facility] Comment on above: Performed By: #### M G, CMP #### [facility] [address] [place] [address] Dr. Doreen Betancourt EGFR-AF ZAMBIAN >60 Normal >=60 [facility] Comment on above: Performed By: #### M G, CMP #### [facility] [address] [place] [address] Dr. Doreen Betancourt EGFR-NON AF ZAMBIAN >60 Normal >=60 [facility] Comment on above: Performed By: #### M G, CMP #### [facility] [address] [address] [address] Doreen Betancourt Globulin (S) [Mass/Vol] 3.5 g/dL Normal [facility] Comment on above: Performed By: #### M G, CMP #### [facility] [address] [address] [address] Doreen Betancourt Glucose [Mass/Vol] 95 mg/dL Normal 74-106 [facility] Comment on above: Performed By: #### M G, CMP #### [facility] [address] [address] [address] Doreen Betancourt Potassium [Moles/Vol] 4.1 mmol/L Normal 3.5-5.1 [facility] Comment on above: Performed By: #### M G, CMP #### [facility] [address] [place] [address] Dr. Doreen Betancourt Protein [Mass/Vol] 6.9 g/dL Normal 6.4-8.2 [facility] Comment on above: Performed By: #### M G, CMP #### [facility] [address] [address] [address] Doreen Betancourt Sodium [Moles/Vol] 142 mmol/L Normal 136-145 [facility] Comment on above: Performed By: #### M G, CMP #### [facility] [address] [place] [address] Dr. Doreen Betancourt Urea nitrogen [Mass/Vol] 13.0 mg/dL Normal 7.0-18.0 [facility] Comment on above: Performed By: #### M G, CMP #### [facility] [address] [address] [address] Doreen Betancourt Urea nitrogen/Creatinine [Mass ratio] 21.7 mg/mg Normal [facility] Comment on above: Performed By: #### M G, CMP #### [facility] [address] [address] [address] Doreen Betancourt CBC W MANUAL DIFFon 08-16-19 23 ANISOCYTOSIS SLIGHT Normal [facility] Comment on above: Performed By: #### M G, CMP #### [facility] [address] [place] [address] Dr. Doreen Betancourt ATYPICAL LYMPH # Normal [facility] Comment on above: Performed By: #### M G, CMP #### [facility] [address] [place] [address] Dr. Doreen Betancourt ATYPICAL LYMPH % Normal [facility] Comment on above: Performed By: #### M G, CMP #### [facility] [address] [place] [address] Dr. Doreen Betancourt BAND # Normal 0.0-0.3 [facility] Comment on above: Performed By: #### M G, CMP #### [facility] [address] [place] [address] Dr. Doreen Betancourt BAND % Normal 0-5 [facility] Comment on above: Performed By: #### M G, CMP #### [facility] [address] [place] [address] Dr. Doreen Betancourt BASOM # 0.00 103/ul Normal 0.00-0.10 [facility] Comment on above: Performed By: #### M G, CMP #### [facility] [address] [place] [address] Dr. Doreen Betancourt BASOM % 0.0 % Critically low 0.2-2.0 [facility] Comment on above: Performed By: #### M G, CMP #### [facility] [address] [place] [address] Dr. Doreen Betancourt BLAST # Normal [facility] Comment on above: Performed By: #### M G, CMP #### [facility] [address] [place] [address] Dr. Doreen Betancourt BLAST % Normal [facility] Comment on above: Performed By: #### M G, CMP #### [facility] [address] [place] [address] Dr. Doreen Betancourt CORRECTED WBC Normal 4.0-11.0 [facility] Comment on above: Performed By: #### M G, CMP #### [facility] [address] [address] [address] Doreen Betancourt EOS # 0.00 103/ul Normal 0.00-0.70 [facility] Comment on above: Performed By: #### M G, CMP #### [facility] [address] [place] [address] Dr. Doreen Betancourt EOS% 0.0 % Critically low 0.9-7.0 [facility] Comment on above: Performed By: #### M G, CMP #### [facility] [address] [place] [address] Dr. Doreen Betancourt HCT 36.2 % Normal 36.0-48.0 [facility] Comment on above: Performed By: #### M G, CMP #### [facility] [address] [place] [address] Dr. Doreen Betancourt HGB 12.1 g/dl Normal 12.0-16.0 [facility] Comment on above: Performed By: #### M G, CMP #### [facility] [address] [place] [address] Dr. Doreen Betancourt LYMPHM # 2.08 103/ul Normal 1.20-3.80 [facility] Comment on above: Performed By: #### M G, CMP #### [facility] [address] [place] [address] Dr. Doreen Betancourt LYMPHM% 63.0 % Critically high 20.5-60.0 [facility] Comment on above: Performed By: #### M G, CMP #### [facility] [address] [place] [address] Dr. Doreen Betancourt MCH 33.0 pg Normal 26.7-34.0 [facility] Comment on above: Performed By: #### M G, CMP #### [facility] [address] [place] [address] Dr. Doreen Betancourt MCHC 33.4 g/dl Normal 29.9-35.2 [facility] Comment on above: Performed By: #### M G, CMP #### [facility] [address] [place] [address] Dr. Doreen Betancourt MCV 98.6 fL Normal 81.0-99.0 [facility] Comment on above: Performed By: #### M G, CMP #### [facility] [address] [place] [address] Dr. Doreen Betancourt METAMYELOCYTE # Normal [facility] Comment on above: Performed By: #### M G, CMP #### [facility] [address] [place] [address] Dr. Doreen Betancourt METAMYELOCYTE % Normal [facility] Comment on above: Performed By: #### M G, CMP #### [facility] [address] [place] [address] Dr. Doreen Betancourt MONOM# 0.33 103/ul Normal 0.30-0.80 [facility] Comment on above: Performed By: #### M G, CMP #### [facility] [address] [place] [address] Dr. Doreen Betancourt MONOM% 10.0 % Normal 1.7-12.0 [facility] Comment on above: Performed By: #### M G, CMP #### [facility] [address] [place] [address] Dr. Doreen Betancourt MPV 10.4 fL Normal 9.5-13.5 [facility] Comment on above: Performed By: #### M G, CMP #### [facility] [address] [place] [address] Dr. Doreen Betancourt MYELOCYTE # Normal [facility] Comment on above: Performed By: #### M G, CMP #### [facility] [address] [place] [address] Dr. Doreen Betancourt MYELOCYTE % Normal [facility] Comment on above: Performed By: #### M G, CMP #### [facility] [address] [place] [address] Dr. Doreen Betancourt NRBC Normal [facility] Comment on above: Performed By: #### M G, CMP #### [facility] [address] [place] [address] Dr. Doreen Betancourt PLT 92 103/ul Critically low 150-450 [facility] Comment on above: Performed By: #### M G, CMP #### [facility] [address] [address] [address] Doreen Betancourt RBC 3.67 106/ul Critically low 4.20-5.40 [facility] Comment on above: Performed By: #### M G, CMP #### [facility] [address] [address] [address] Doreen Betancourt RDW 17.8 % Critically high 11.0-15.0 [facility] Comment on above: Performed By: #### M G, CMP #### [facility] [address] [address] [address] Doreen Betancourt SEG # 0.89 103/ul Critically low 1.40-6.50 [facility] Comment on above: Performed By: #### M G, CMP #### [facility] [address] [place] [address] Dr. Doreen Betancourt SEG % 27.0 % Critically low 43.0-75.0 [facility] Comment on above: Performed By: #### M G, CMP #### [facility] [address] [address] [address] Doreen Betancourt WBC 3.3 103/ul Critically low 4.0-11.0 [facility] Comment on above: Performed By: #### M G, CMP #### [facility] [address] [place] [address] Dr. Doreen Betancourt MAGNESIUMon 08-16-2022 Magnesium [Mass/Vol] 2.1 mg/dL Normal 1.8-2.4 [facility] Comment on above: Performed By: #### C BC #### [facility] [address] [place] [address] Dr. Doreen Betancourt PROF 14(COMP METB)on 023 Albumin [Mass/Vol] 3.5 g/dL Normal 3.4-5.0 [facility] Comment on above: Performed By: #### C BC #### [facility] [address] [place] [address] Dr. Doreen Betancourt Albumin/Globulin [Mass ratio] 1.0 {ratio} Normal [facility] Comment on above: Performed By: #### C BC #### [facility] [address] [address] [address] Doreen Betancourt ALP [Catalytic activity/Vol] 131 U/L Critically high 46-116 [facility] Comment on above: Performed By: #### C BC #### [facility] [address] [address] [address] Doreen Betancourt ALT [Catalytic activity/Vol] 98 U/L Critically high 14-59 [facility] Comment on above: Performed By: #### C BC #### [facility] [address] [address] [address] Doreen Betancourt Anion gap [Moles/Vol] 12.3 mmol/L Normal [facility] Comment on above: Performed By: #### C BC #### [facility] [address] [place] [address] Dr. Doreen Betancourt AST [Catalytic activity/Vol] 78 U/L Critically high 15-37 [facility] Comment on above: Performed By: #### C BC #### [facility] [address] [place] [address] Dr. Doreen Betancourt Bilirubin [Mass/Vol] 0.3 mg/dL Normal 0.2-1.0 [facility] Comment on above: Performed By: #### C BC #### [facility] [address] [place] [address] Dr. Doreen Betancourt Calcium [Mass/Vol] 9.3 mg/dL Normal 8.5-10.1 [facility] Comment on above: Performed By: #### C BC #### [facility] [address] [place] [address] Dr. Doreen Betancourt Chloride [Moles/Vol] 104 mmol/L Normal 98-107 [facility] Comment on above: Performed By: #### C BC #### [facility] [address] [place] [address] Dr. Doreen Betancourt CO2 [Moles/Vol] 29.4 mmol/L Normal 21.0-32.0 [facility] Comment on above: Performed By: #### C BC #### [facility] [address] [place] [address] Dr. Doreen Betancourt Creatinine [Mass/Vol] 0.67 mg/dL Normal 0.55-1.02 [facility] Comment on above: Performed By: #### C BC #### [facility] [address] [place] [address] Dr. Doreen Betancourt EGFR-AF ZAMBIAN >60 Normal >=60 [facility] Comment on above: Performed By: #### C BC #### [facility] [address] [place] [address] Dr. Doreen Betancourt EGFR-NON AF ZAMBIAN >60 Normal >=60 [facility] Comment on above: Performed By: #### C BC #### [facility] [address] [place] [address] Dr. Doreen Betancourt Globulin (S) [Mass/Vol] 3.5 g/dL Normal [facility] Comment on above: Performed By: #### C BC #### [facility] [address] [place] [address] Dr. Doreen Betancourt Glucose [Mass/Vol] 100 mg/dL Normal 74-106 [facility] Comment on above: Performed By: #### C BC #### [facility] [address] [place] [address] Dr. Doreen Betancourt Potassium [Moles/Vol] 4.7 mmol/L Normal 3.5-5.1 [facility] Comment on above: Performed By: #### C BC #### [facility] [address] [place] [address] Dr. Doreen Betancourt Protein [Mass/Vol] 7.0 g/dL Normal 6.4-8.2 [facility] Comment on above: Performed By: #### C BC #### [facility] [address] [place] [address] Dr. Doreen Betancourt Sodium [Moles/Vol] 141 mmol/L Normal 136-145 [facility] Comment on above: Performed By: #### C BC #### [facility] [address] [place] [address] Dr. Doreen Betancourt Urea nitrogen [Mass/Vol] 13.0 mg/dL Normal 7.0-18.0 [facility] Comment on above: Performed By: #### C BC #### [facility] [address] [place] [address] Dr. Doreen Betancourt Urea nitrogen/Creatinine [Mass ratio] 19.4 mg/mg Normal [facility] Comment on above: Performed By: #### C BC #### [facility] [address] [place] [address] Dr. Doreen Betancourt CBC AUTO DIFFon 08-03-2022 BASO # 0.0 103/ul Normal 0.0-0.1 [facility] Comment on above: Performed By: #### M G, CMP #### [facility] [address] [place] [address] Dr. Doreen Betancourt Basophils/100 WBC (Bld) 0.6 % Normal 0.2-2.0 [facility] Comment on above: Performed By: #### M G, CMP #### [facility] [address] [place] [address] Dr. Doreen Betancourt EO # 0.0 103/ul Normal 0.0-0.7 [facility] Comment on above: Performed By: #### M G, CMP #### [facility] [address] [place] [address] Dr. Doreen Betancourt Eosinophils/100 WBC (Bld) 0.6 % Critically low 0.9-7.0 [facility] Comment on above: Performed By: #### M G, CMP #### [facility] [address] [place] [address] Dr. Doreen Betancourt Erythrocyte distribution width (RBC) [Ratio] 17.8 % Critically high 11.0-15.0 [facility] Comment on above: Performed By: #### M G, CMP #### [facility] [address] [place] [address] Dr. Doreen Betancourt Hematocrit (Bld) [Volume fraction] 36.1 % Normal 36.0-48.0 [facility] Comment on above: Performed By: #### M G, CMP #### [facility] [address] [address] [address] Doreen Betancourt Hemoglobin (Bld) [Mass/Vol] 12.6 g/dL Normal 12.0-16.0 [facility] Comment on above: Performed By: #### M G, CMP #### [facility] [address] [address] [address] Doreen Betancourt IG # 0.01 10e3/ul Normal 0.00-0.03 [facility] Comment on above: Performed By: #### M G, CMP #### [facility] [address] [place] [address] Dr. Doreen Betancourt IG % 0.3 % Normal 0.0-0.5 [facility] Comment on above: Performed By: #### M G, CMP #### [facility] [address] [place] [address] Dr. Doreen Betancourt LYMPH # 1.6 103/ul Normal 1.2-3.8 [facility] Comment on above: Performed By: #### M G, CMP #### [facility] [address] [place] [address] Dr. Doreen Betancourt Lymphocytes/100 WBC (Bld) 46.4 % Normal 20.5-60.0 [facility] Comment on above: Performed By: #### M G, CMP #### [facility] [address] [place] [address] Dr. Doreen Betancourt MANUAL DIFF REQ NO Normal [facility] Comment on above: Performed By: #### M G, CMP #### [facility] [address] [place] [address] Dr. Doreen Betancourt MCH (RBC) [Entitic mass] 32.1 pg Normal 26.7-34.0 [facility] Comment on above: Performed By: #### M G, CMP #### [facility] [address] [place] [address] Dr. Doreen Betancourt MCHC (RBC) [Mass/Vol] 34.9 g/dL Normal 29.9-35.2 [facility] Comment on above: Performed By: #### M G, CMP #### [facility] [address] [place] [address] Dr. Doreen Betancourt MCV (RBC) [Entitic vol] 91.9 fL Normal 81.0-99.0 [facility] Comment on above: Performed By: #### M G, CMP #### [facility] [address] [place] [address] Dr. Doreen Betancourt MONO # 0.3 103/ul Normal 0.3-0.8 [facility] Comment on above: Performed By: #### M G, CMP #### [facility] [address] [place] [address] Dr. Doreen Betancourt Monocytes/100 WBC (Bld) 9.7 % Normal 1.7-12.0 [facility] Comment on above: Performed By: #### M G, CMP #### [facility] [address] [place] [address] Dr. Doreen Betancourt NEUT # 1.5 103/ul Normal 1.4-6.5 [facility] Comment on above: Performed By: #### M G, CMP #### [facility] [address] [place] [address] Dr. Doreen Betanocurt Neutrophils/100 WBC (Bld) 42.4 % Critically low 43.0-75.0 [facility] Comment on above: Performed By: #### M G, CMP #### [facility] [address] [place] [address] Dr. Doreen Betancourt Platelet mean volume (Bld) [Entitic vol] 11.1 fL Normal 9.5-13.5 [facility] Comment on above: Performed By: #### M G, CMP #### [facility] [address] [place] [address] Dr. Doreen Betancourt PLT 101 103/ul Critically low 150-450 [facility] Comment on above: Performed By: #### M G, CMP #### [facility] [address] [place] [address] Dr. Doreen Betancourt RBC 3.93 106/ul Critically low 4.20-5.40 [facility] Comment on above: Performed By: #### M G, CMP #### [facility] [address] [place] [address] Dr. Doreen Betancourt WBC 3.5 103/ul Critically low 4.0-11.0 [facility] Comment on above: Performed By: #### M G, CMP #### [facility] [address] [place] [address] Dr. Doreen Betancourt MAGNESIUMon 08-03-2022 Magnesium [Mass/Vol] 2.0 mg/dL Normal 1.8-2.4 [facility] Comment on above: Performed By: #### C MP, MG #### [facility] [address] [place] [address] Dr. Doreen Betancourt PROF 14(COMP METB)on 023 Albumin [Mass/Vol] 3.6 g/dL Normal 3.4-5.0 [facility] Comment on above: Performed By: #### C MP, MG #### [facility] [address] [place] [address] Dr. Doreen Betancourt Albumin/Globulin [Mass ratio] 1.0 {ratio} Normal [facility] Comment on above: Performed By: #### C MP, MG #### [facility] [address] [place] [address] Dr. Doreen Betancourt ALP [Catalytic activity/Vol] 120 U/L Critically high 46-116 [facility] Comment on above: Performed By: #### C MP, MG #### [facility] [address] [place] [address] Dr. Doreen Betancourt ALT [Catalytic activity/Vol] 80 U/L Critically high 14-59 [facility] Comment on above: Performed By: #### C MP, MG #### [facility] [address] [place] [address] Dr. Doreen Betancourt Anion gap [Moles/Vol] 10.7 mmol/L Normal [facility] Comment on above: Performed By: #### C MP, MG #### [facility] [address] [place] [address] Dr. Doreen Betancourt AST [Catalytic activity/Vol] 62 U/L Critically high 15-37 [facility] Comment on above: Performed By: #### C MP, MG #### [facility] [address] [place] [address] Dr. Doreen eBtancourt Bilirubin [Mass/Vol] 0.4 mg/dL Normal 0.2-1.0 [facility] Comment on above: Performed By: #### C MP, MG #### [facility] [address] [place] [address] Dr. Doreen Betancourt Calcium [Mass/Vol] 9.6 mg/dL Normal 8.5-10.1 [facility] Comment on above: Performed By: #### C MP, MG #### [facility] [address] [place] [address] Dr. Doreen Betancourt Chloride [Moles/Vol] 106 mmol/L Normal 98-107 [facility] Comment on above: Performed By: #### C MP, MG #### [facility] [address] [place] [address] Dr. Doreen Betancourt CO2 [Moles/Vol] 29.5 mmol/L Normal 21.0-32.0 [facility] Comment on above: Performed By: #### C MP, MG #### [facility] [address] [place] [address] Dr. Doreen Betancourt Creatinine [Mass/Vol] 0.67 mg/dL Normal 0.55-1.02 [facility] Comment on above: Performed By: #### C MP, MG #### [facility] [address] [place] [address] Dr. Doreen Betancourt EGFR-AF ZAMBIAN >60 Normal >=60 [facility] Comment on above: Performed By: #### C MP, MG #### [facility] [address] [place] [address] Dr. Doreen Betancourt EGFR-NON AF ZAMBIAN >60 Normal >=60 [facility] Comment on above: Performed By: #### C MP, MG #### [facility] [address] [place] [address] Dr. Doreen Betancourt Globulin (S) [Mass/Vol] 3.5 g/dL Normal [facility] Comment on above: Performed By: #### C MP, MG #### [facility] [address] [address] [address] Doreen Betancourt Glucose [Mass/Vol] 128 mg/dL Critically high 74-106 [facility] Comment on above: Performed By: #### C MP, MG #### [facility] [address] [address] [address] Doreen Betancourt Potassium [Moles/Vol] 4.2 mmol/L Normal 3.5-5.1 [facility] Comment on above: Performed By: #### C MP, MG #### [facility] [address] [address] [address] Doreen Betancourt Protein [Mass/Vol] 7.1 g/dL Normal 6.4-8.2 [facility] Comment on above: Performed By: #### C MP, MG #### [facility] [address] [address] [address] Doreen Betancourt Sodium [Moles/Vol] 142 mmol/L Normal 136-145 [facility] Comment on above: Performed By: #### C MP, MG #### [facility] [address] [address] [address] Doreen Betancourt Urea nitrogen [Mass/Vol] 12.0 mg/dL Normal 7.0-18.0 [facility] Comment on above: Performed By: #### C MP, MG #### [facility] [address] [address] [address] Doreen Betancourt Urea nitrogen/Creatinine [Mass ratio] 17.9 mg/mg Normal [facility] Comment on above: Performed By: #### C MP, MG #### [facility] [address] [address] [address] Doreen Betancourt CEAon 07-21-2022 CEA 8.1 ng/mL Critically high 0.0-4.7 [facility] Comment on above: Result Comment: Nons mokers <3.9 Smokers <5.6 . [employer] Electrochemiluminescence Immunoassay (ECLIA) . Values obtained with different assay methods or kits cannot be used interchangeably. Results cannot be interpreted as absolute evidence of the presence or absence of malignant disease. Performed By: #### C VDTBH #### [facility] [address] [place] [address] Dr. Doreen Betancourt CBC AUTO DIFFon 07-20-2022 BASO # 0.0 103/ul Normal 0.0-0.1 [facility] Comment on above: Performed By: #### C VDTBH #### [facility] [address] [place] [address] Dr. Doreen Betancourt Basophils/100 WBC (Bld) 0.9 % Normal 0.2-2.0 [facility] Comment on above: Performed By: #### C VDTBH #### [facility] [address] [place] [address] Dr. Doreen Betancourt EO # 0.0 103/ul Normal 0.0-0.7 [facility] Comment on above: Performed By: #### C VDTBH #### [facility] [address] [place] [address] Dr. Doreen Betancourt Eosinophils/100 WBC (Bld) 0.6 % Critically low 0.9-7.0 [facility] Comment on above: Performed By: #### C VDTBH #### [facility] [address] [place] [address] Dr. Doreen Betancourt Erythrocyte distribution width (RBC) [Ratio] 17.2 % Critically high 11.0-15.0 [facility] Comment on above: Performed By: #### C VDTBH #### [facility] [address] [place] [address] Dr. Doreen Betancourt Hematocrit (Bld) [Volume fraction] 39.1 % Normal 36.0-48.0 [facility] Comment on above: Performed By: #### C VDTBH #### [facility] [address] [place] [address] Dr. Doreen Betancourt Hemoglobin (Bld) [Mass/Vol] 13.0 g/dL Normal 12.0-16.0 [facility] Comment on above: Performed By: #### C VDTBH #### [facility] [address] [place] [address] Dr. Doreen Betancourt IG # 0.00 10e3/ul Normal 0.00-0.03 [facility] Comment on above: Performed By: #### C VDTBH #### [facility] [address] [place] [address] Dr. Doreen Betancourt IG % 0.0 % Normal 0.0-0.5 [facility] Comment on above: Performed By: #### C VDTBH #### [facility] [address] [place] [address] Dr. Doreen Betancourt LYMPH # 2.0 103/ul Normal 1.2-3.8 [facility] Comment on above: Performed By: #### C VDTBH #### [facility] [address] [place] [address] Dr. Doreen Betancourt Lymphocytes/100 WBC (Bld) 42.1 % Normal 20.5-60.0 [facility] Comment on above: Performed By: #### C VDTBH #### [facility] [address] [place] [address] Dr. Doreen Betancourt MANUAL DIFF REQ NO Normal [facility] Comment on above: Performed By: #### C VDTBH #### [facility] [address] [place] [address] Dr. Doreen Betancourt MCH (RBC) [Entitic mass] 31.1 pg Normal 26.7-34.0 [facility] Comment on above: Performed By: #### C VDTBH #### [facility] [address] [place] [address] Dr. Doreen Betancourt MCHC (RBC) [Mass/Vol] 33.2 g/dL Normal 29.9-35.2 [facility] Comment on above: Performed By: #### C VDTBH #### [facility] [address] [place] [address] Dr. Doreen Betancourt MCV (RBC) [Entitic vol] 93.5 fL Normal 81.0-99.0 [facility] Comment on above: Performed By: #### C VDTBH #### [facility] [address] [place] [address] Dr. Doreen Betancourt MONO # 0.6 103/ul Normal 0.3-0.8 [facility] Comment on above: Performed By: #### C VDTBH #### [facility] [address] [place] [address] Dr. Doreen Betancourt Monocytes/100 WBC (Bld) 13.5 % Critically high 1.7-12.0 [facility] Comment on above: Performed By: #### C VDTBH #### [facility] [address] [place] [address] Dr. Doreen Betancourt NEUT # 2.0 103/ul Normal 1.4-6.5 [facility] Comment on above: Performed By: #### C VDTBH #### [facility] [address] [place] [address] Dr. Doreen Betancourt Neutrophils/100 WBC (Bld) 42.9 % Critically low 43.0-75.0 [facility] Comment on above: Performed By: #### C VDTBH #### [facility] [address] [place] [address] Dr. Doreen Betancourt Platelet mean volume (Bld) [Entitic vol] 10.2 fL Normal 9.5-13.5 [facility] Comment on above: Performed By: #### C VDTBH #### [facility] [address] [place] [address] Dr. Doreen Betancourt PLT 143 103/ul Critically low 150-450 [facility] Comment on above: Performed By: #### C VDTBH #### [facility] [address] [place] [address] Dr. Doreen Betancourt RBC 4.18 106/ul Critically low 4.20-5.40 [facility] Comment on above: Performed By: #### C VDTBH #### [facility] [address] [place] [address] Dr. Doreen Betancourt WBC 4.7 103/ul Normal 4.0-11.0 [facility] Comment on above: Performed By: #### C VDTBH #### [facility] [address] [place] [address] Dr. Doreen Betancourt MAGNESIUMon 01-14-2023 Magnesium [Mass/Vol] 2.2 mg/dL Normal 1.8-2.4 [facility] Comment on above: Performed By: #### M G, CMP #### [facility] [address] [place] [address] Dr. Doreen Betancourt PROF 14(COMP METB)on 023 Albumin [Mass/Vol] 3.8 g/dL Normal 3.4-5.0 [facility] Comment on above: Performed By: #### C BC #### [facility] [address] [place] [address] Dr. Doreen Betancourt Albumin/Globulin [Mass ratio] 1.0 {ratio} Normal [facility] Comment on above: Performed By: #### C BC #### [facility] [address] [place] [address] Dr. Doreen Betancourt ALP [Catalytic activity/Vol] 118 U/L Critically high 46-116 [facility] Comment on above: Performed By: #### C BC #### [facility] [address] [place] [address] Dr. Doreen Betancourt ALT [Catalytic activity/Vol] 57 U/L Normal 14-59 [facility] Comment on above: Performed By: #### C BC #### [facility] [address] [place] [address] Dr. Doreen Betancourt Anion gap [Moles/Vol] 13.4 mmol/L Normal [facility] Comment on above: Performed By: #### C BC #### [facility] [address] [place] [address] Dr. Doreen Betancourt AST [Catalytic activity/Vol] 40 U/L Critically high 15-37 [facility] Comment on above: Performed By: #### C BC #### [facility] [address] [place] [address] Dr. Doreen Betancourt Bilirubin [Mass/Vol] 0.4 mg/dL Normal 0.2-1.0 [facility] Comment on above: Performed By: #### C BC #### [facility] [address] [place] [address] Dr. Doreen Betancourt Calcium [Mass/Vol] 9.7 mg/dL Normal 8.5-10.1 [facility] Comment on above: Performed By: #### C BC #### [facility] [address] [place] [address] Dr. Doreen Betancourt Chloride [Moles/Vol] 103 mmol/L Normal 98-107 [facility] Comment on above: Performed By: #### C BC #### [facility] [address] [place] [address] Dr. Doreen Betancourt CO2 [Moles/Vol] 29.1 mmol/L Normal 21.0-32.0 [facility] Comment on above: Performed By: #### C BC #### [facility] [address] [place] [address] Dr. Doreen Betancourt Creatinine [Mass/Vol] 0.71 mg/dL Normal 0.55-1.02 [facility] Comment on above: Performed By: #### C BC #### [facility] [address] [place] [address] Dr. Doreen Betancourt EGFR-AF ZAMBIAN >60 Normal >=60 [facility] Comment on above: Performed By: #### C BC #### [facility] [address] [place] [address] Dr. Doreen Betancourt EGFR-NON AF ZAMBIAN >60 Normal >=60 [facility] Comment on above: Performed By: #### C BC #### [facility] [address] [place] [address] Dr. Doreen Betancourt Globulin (S) [Mass/Vol] 3.7 g/dL Normal [facility] Comment on above: Performed By: #### C BC #### [facility] [address] [place] [address] Dr. Doreen Betancourt Glucose [Mass/Vol] 106 mg/dL Normal 74-106 [facility] Comment on above: Performed By: #### C BC #### [facility] [address] [place] [address] Dr. Doreen Betancourt Potassium [Moles/Vol] 4.5 mmol/L Normal 3.5-5.1 [facility] Comment on above: Performed By: #### C BC #### [facility] [address] [place], [place] [address] Dr. Doreen Betancourt Protein [Mass/Vol] 7.5 g/dL Normal 6.4-8.2 [facility] Comment on above: Performed By: #### C BC #### [facility] [address] [place], [place] [address] Dr. Doreen Betancourt Sodium [Moles/Vol] 141 mmol/L Normal 136-145 [facility] Comment on above: Performed By: #### C BC #### [facility] [address] [place], [place] [address] Dr. Doreen Betancourt Urea nitrogen [Mass/Vol] 15.0 mg/dL Normal 7.0-18.0 [facility] Comment on above: Performed By: #### C BC #### [facility] [address] [address] [address] Doreen Betancourt Urea nitrogen/Creatinine [Mass ratio] 21.1 mg/mg Normal [facility] Comment on above: Performed By: #### C BC #### [facility] [address] [place], [place] [address] Dr. Doreen Betancourt Albumin [Mass/volume] in Ser um or PlasmaOrdered By: Isaías Jordan on 07-11-2022 Albumin [Mass/Vol] 3.8 g/dL 3.2-5.5 [facility] Creatinine and Glomerular fi ltration rate.predicted panel (S/P/Bld)Ordered By: Isaías Jordan on 07-11-2022 Creatinine [Mass/Vol] 0.64 mg/dL 0.44-1.03 [facility] Estimated glomerular filtrat ion rate (GFR) non- AmericanOrdered By: Isaías Jordan on 07-11-2022 GFR/1.73 sq M.predicted among non-blacks MDRD (S/P/Bld) [Vol rate/Area] > 60 mL/Min [facility] GFR/1.73 sq M.predicted among non-blacks MDRD (S/P/Bld) [Vol rate/Area] Estimated glomerular filtration rate (GFR) non- [facility] Globulin Calc (S) [Mass/Vol] Ordered By: Isaías Jordan on 07-11-2022 Globulin (S) [Mass/Vol] 2.8 g/dL [facility] - Chemistry and C hemistry - challengeOrdered By: Isaías Jordan on 07-11-2022 Magnesium [Mass/Vol] 2.2 mg/dL 1.6-2.6 [facility] No Panel InformationOrdered By: Isaías Jordan on 07-11-2022 Estimated GFR () > 60 mL/Min [facility] Comment on above: GFR estimated refere nce range: According to KDOQI guidelines, <60 ml/min/1.73m2 is sufficient to diagnose a patient with chronic kidney disease. Pharmacy Creatinine Clearance (Chem 97.34 [facility] Protein [Mass/volume] in Ser um or PlasmaOrdered By: Isaías Jordan on 07-11-2022 Protein [Mass/Vol] 6.6 g/dL 6.1-7.9 [facility] Serum or plasma alanine villalpando otransferase measurement without P-5'-P (enzymatic activiOrdered By: Isaías Jordan on 07-11-2022 ALT No additional P-5'-P [Catalytic activity/Vol] 71 U/L 10-60 [facility] Serum or plasma albumin/glob ulin mass ratioOrdered By: Isaías Jordan on 07-11-2022 Albumin/Globulin [Mass ratio] 1.4 {ratio} [facility] Serum or plasma alkaline joselito sphatase measurement (enzymatic activity/volume)Ordered By: Isaías Jordan on 07-11-2022 ALP [Catalytic activity/Vol] 72 U/L 32-92 [facility] Serum or plasma anion gap de terminationOrdered By: Isaías Jordan on 07-11-2022 Anion gap [Moles/Vol] 9.7 mmol/L 6.0-15.0 [facility] Serum or plasma aspartate am inotransferase measurement (enzymatic activity/volume)Ordered By: Isaías Jordan on 07-11-2022 AST [Catalytic activity/Vol] 56 U/L 10-42 [facility] Serum or plasma calcium idalmis urement (mass/volume)Ordered By: Isaías Jordan on 07-11-2022 Calcium [Mass/Vol] 9.1 mg/dL 8.2-10.2 [facility] Serum or plasma chloride jose surement (moles/volume)Ordered By: Isaías Jordan on 07-11-2022 Chloride [Moles/Vol] 103 mmol/L 95-114 [facility] Serum or plasma glucose dialmis urement (mass/volume)Ordered By: Isaías Jordan on 07-11-2022 Glucose [Mass/Vol] 81 mg/dL 70-100 [facility] Comment on above: ADA recommended refe rence rangeRandom Glucose Reference Range is dependent on time and content of last meal. Glucose of more than 200 mg/dL in a nonstressed, ambulatory subject supports the diagnosis of Diabetes Mellitus. Serum or plasma potassium me asurement (moles/volume)Ordered By: Isaías Jordan on 07-11-2022 Potassium [Moles/Vol] 4.1 mmol/L 3.5-5.1 [facility] Serum or plasma sodium measu rement (moles/volume)Ordered By: Isaías Jordan on 07-11-2022 Sodium [Moles/Vol] 134 mmol/L 136-146 [facility] Serum or plasma total biliru bin measurement (mass/volume)Ordered By: Isaías Jordan on 07-11-2022 Bilirubin [Mass/Vol] 0.8 mg/dL 0.3-1.2 [facility] Serum or plasma total carbon dioxide measurement (moles/volume)Ordered By: Isaías Jordan on 07-11-2022 CO2 [Moles/Vol] 25.4 mmol/L 22.0-30.0 [facility] Serum or plasma urea nitroge n measurement (mass/volume)Ordered By: Isaías Jordan on 07-11-2022 Urea nitrogen [Mass/Vol] 14 mg/dL 03-29 [facility] Albumin [Mass/volume] in Ser um or PlasmaOrdered By: Isaías Jordan on 07-06-2022 Albumin [Mass/Vol] 4.2 g/dL 3.2-5.5 [facility] CBC AUTO DIFFon 07-06-2022 BASO # 0.0 103/ul Normal 0.0-0.1 [facility] Comment on above: Performed By: #### M G, CMP #### [facility] [address] [place] [address] Dr. Doreen Betancourt Basophils/100 WBC (Bld) 0.7 % Normal 0.2-2.0 [facility] Comment on above: Performed By: #### M G, CMP #### [facility] [address] [place] [address] Dr. Doreen Betancourt EO # 0.1 103/ul Normal 0.0-0.7 [facility] Comment on above: Performed By: #### M G, CMP #### [facility] [address] [place] [address] Dr. Doreen Betancourt Eosinophils/100 WBC (Bld) 1.1 % Normal 0.9-7.0 [facility] Comment on above: Performed By: #### M G, CMP #### [facility] [address] [place] [address] Dr. Doreen Betancourt Erythrocyte distribution width (RBC) [Ratio] 16.9 % Critically high 11.0-15.0 [facility] Comment on above: Performed By: #### M G, CMP #### [facility] [address] [place] [address] Dr. Doreen Betancourt Hematocrit (Bld) [Volume fraction] 38.9 % Normal 36.0-48.0 [facility] Comment on above: Performed By: #### M G, CMP #### [facility] [address] [place] [address] Dr. Doreen Betancourt Hemoglobin (Bld) [Mass/Vol] 14.2 g/dL Normal 12.0-16.0 [facility] Comment on above: Performed By: #### M G, CMP #### [facility] [address] [place] [address] Dr. Doreen Betancourt IG # 0.01 10e3/ul Normal 0.00-0.03 [facility] Comment on above: Performed By: #### M G, CMP #### [facility] [address] [place] [address] Dr. Doreen Betancourt IG % 0.2 % Normal 0.0-0.5 [facility] Comment on above: Performed By: #### M G, CMP #### [facility] [address] [place] [address] Dr. Doreen Betancourt LYMPH # 2.0 103/ul Normal 1.2-3.8 [facility] Comment on above: Performed By: #### M G, CMP #### [facility] [address] [place] [address] Dr. Doreen Betancourt Lymphocytes/100 WBC (Bld) 43.2 % Normal 20.5-60.0 [facility] Comment on above: Performed By: #### M G, CMP #### [facility] [address] [place] [address] Dr. Doreen Betancourt MANUAL DIFF REQ NO Normal [facility] Comment on above: Performed By: #### M G, CMP #### [facility] [address] [place] [address] Dr. Doreen Betancourt MCH (RBC) [Entitic mass] 34.5 pg Critically high 26.7-34.0 [facility] Comment on above: Performed By: #### M G, CMP #### [facility] [address] [place] [address] Dr. Doreen Betancourt MCHC (RBC) [Mass/Vol] 36.5 g/dL Critically high 29.9-35.2 [facility] Comment on above: Performed By: #### M G, CMP #### [facility] [address] [place] [address] Dr. Doreen Betancourt MCV (RBC) [Entitic vol] 94.6 fL Normal 81.0-99.0 [facility] Comment on above: Performed By: #### M G, CMP #### [facility] [address] [place] [address] Dr. Doreen Betancourt MONO # 0.4 103/ul Normal 0.3-0.8 [facility] Comment on above: Performed By: #### M G, CMP #### [facility] [address] [address] [address] Doreen Betancourt Monocytes/100 WBC (Bld) 9.6 % Normal 1.7-12.0 [facility] Comment on above: Performed By: #### M G, CMP #### [facility] [address] [address] [address] Doreen Betancourt NEUT # 2.1 103/ul Normal 1.4-6.5 [facility] Comment on above: Performed By: #### M G, CMP #### [facility] [address] [place] [address] Dr. Doreen Betancourt Neutrophils/100 WBC (Bld) 45.2 % Normal 43.0-75.0 [facility] Comment on above: Performed By: #### M G, CMP #### [facility] [address] [place] [address] Dr. Doreen Betancourt Platelet mean volume (Bld) [Entitic vol] 9.8 fL Normal 9.5-13.5 [facility] Comment on above: Performed By: #### M G, CMP #### [facility] [address] [place] [address] Dr. Doreen Betancourt PLT 155 103/ul Normal 150-450 [facility] Comment on above: Performed By: #### M G, CMP #### [facility] [address] [place] [address] Dr. Doreen Betancourt RBC 4.11 106/ul Critically low 4.20-5.40 [facility] Comment on above: Performed By: #### M G, CMP #### [facility] [address] [place] [address] Dr. Doreen Betancourt WBC 4.6 103/ul Normal 4.0-11.0 [facility] Comment on above: Performed By: #### M G, CMP #### [facility] [address] [place] [address] Dr. Doreen Betancourt Creatinine and Glomerular fi ltration rate.predicted panel (S/P/Bld)Ordered By: Isaías Jordan on 07-06-2022 Creatinine [Mass/Vol] 0.43 mg/dL 0.44-1.03 [facility] Estimated glomerular filtrat ion rate (GFR) non- AmericanOrdered By: Isaías Jordan on 07-06-2022 GFR/1.73 sq M.predicted among non-blacks MDRD (S/P/Bld) [Vol rate/Area] > 60 mL/Min [facility] Globulin Calc (S) [Mass/Vol] Ordered By: Isaías Jordan on 07-06-2022 Globulin (S) [Mass/Vol] 2.6 g/dL [facility] - Chemistry and C hemistry - challengeOrdered By: Isaías Jordan on 07-06-2022 Magnesium [Mass/Vol] 2.8 mg/dL 1.6-2.6 [facility] MAGNESIUMon 07-06-2022 Magnesium [Mass/Vol] 2.0 mg/dL Normal 1.8-2.4 [facility] Comment on above: Performed By: #### C BC #### [facility] [address] [place] [address] Dr. Doreen Betancourt No Panel InformationOrdered By: Isaías Jordan on 07-06-2022 Estimated GFR () > 60 mL/Min [facility] Comment on above: GFR estimated refere nce range: According to KDOQI guidelines, <60 ml/min/1.73m2 is sufficient to diagnose a patient with chronic kidney disease. Pharmacy Creatinine Clearance (Chem N/A [facility] PROF 14(COMP METB)on 022 Albumin [Mass/Vol] 4.2 g/dL Normal 3.4-5.0 [facility] Comment on above: Result Comment: pref ormed at [facility] [place]; ultrafuged specimen Performed By: #### C BC #### [facility] [address] [place] [address] [address] [address] Doreen Betancourt Albumin/Globulin [Mass ratio] 1.6 {ratio} Normal [facility] Comment on above: Performed By: #### C BC #### [facility] [address] [place], [place] [address] Dr. Doreen Betancourt ALP [Catalytic activity/Vol] 102 U/L Normal 46-116 [facility] Comment on above: Result Comment: pref ormed at [facility] [place]; ultrafuged specimen Performed By: #### C BC #### [facility] [address] [address] [address] Doreen Betancourt ALT [Catalytic activity/Vol] 38 U/L Normal 14-59 [facility] Comment on above: Result Comment: pref ormed at [facility] [place]; ultrafuged specimen Performed By: #### C BC #### [facility] [address] [place] [address] Dr. Doreen Betancourt Anion gap [Moles/Vol] 11.9 mmol/L Normal [facility] Comment on above: Performed By: #### C BC #### [facility] [address] [place] [address] Dr. Doreen Betancourt AST [Catalytic activity/Vol] 49 U/L Critically high 15-37 [facility] Comment on above: Result Comment: pref ormed at [facility] [place]; ultrafuged specimen Performed By: #### C BC #### [facility] [address] [place] [address] Dr. Doreen Betancourt Bilirubin [Mass/Vol] 0.7 mg/dL Normal 0.2-1.0 [facility] Comment on above: Result Comment: pref ormed at [facility] [place]; ultrafuged specimen Performed By: #### C BC #### [facility] [address] [place] [address] Dr. Doreen Betancourt Calcium [Mass/Vol] 9.5 mg/dL Normal 8.5-10.1 [facility] Comment on above: Result Comment: pref ormed at [facility] [place]; ultrafuged specimen Performed By: #### C BC #### [facility] [address] [place] [address] Dr. Doreen Betancourt Chloride [Moles/Vol] 101 mmol/L Normal 98-107 [facility] Comment on above: Result Comment: pref ormed at [facility] [place]; ultrafuged specimen Performed By: #### C BC #### [facility] [address] [place] [address] Dr. Doreen Betancourt CO2 [Moles/Vol] 25.4 mmol/L Normal 21.0-32.0 [facility] Comment on above: Result Comment: pref ormed at [facility] [place]; ultrafuged specimen Performed By: #### C BC #### [facility] [address] [address] [address] Doreen Betancourt Creatinine [Mass/Vol] 0.43 mg/dL Critically low 0.55-1.02 [facility] Comment on above: Result Comment: pref ormed at [facility] [place]; ultrafuged specimen Performed By: #### C BC #### [facility] [address] [address] [address] Doreen Betancourt EGFR-AF ZAMBIAN >60 Normal >=60 [facility] Comment on above: Performed By: #### C BC #### [facility] [address] [place] [address] Dr. Doreen Betancourt EGFR-NON AF ZAMBIAN >60 Normal >=60 [facility] Comment on above: Performed By: #### C BC #### [facility] [address] [address] [address] Doreen Betancourt Globulin (S) [Mass/Vol] 2.6 g/dL Normal [facility] Comment on above: Performed By: #### C BC #### [facility] [address] [place] [address] Dr. Doreen Betancourt Glucose [Mass/Vol] 102 mg/dL Normal 74-106 [facility] Comment on above: Result Comment: pref ormed at [facility] [place]; ultrafuged specimen Performed By: #### C BC #### [facility] [address] [place] [address] Dr. Doreen Betancourt Potassium [Moles/Vol] 5.3 mmol/L Critically high 3.5-5.1 [facility] Comment on above: Result Comment: pref ormed at [facility] [place]; ultrafuged specimen Performed By: #### C BC #### [facility] [address] [place] [address] Dr. Doreen Betancourt Protein [Mass/Vol] 6.8 g/dL Normal 6.4-8.2 [facility] Comment on above: Result Comment: pref ormed at [facility] [place]; ultrafuged specimen Performed By: #### C BC #### [facility] [address] [address] [address] Doreen Betancourt Sodium [Moles/Vol] 133 mmol/L Critically low 136-145 [facility] Comment on above: Result Comment: pref ormed at [facility] [place]; ultrafuged specimen Performed By: #### C BC #### [facility] [address] [address] [address] Doreen Betancourt Urea nitrogen [Mass/Vol] 18.0 mg/dL Normal 7.0-18.0 [facility] Comment on above: Result Comment: pref ormed at [facility] [place]; ultrafuged specimen Performed By: #### C BC #### [facility] [address] [address] [address] Doreen Betancourt Urea nitrogen/Creatinine [Mass ratio] 41.6 mg/mg Normal [facility] Comment on above: Performed By: #### C BC #### [facility] [address] [address] [address] Doreen Betancourt Protein [Mass/volume] in Ser um or PlasmaOrdered By: Isaías Jordan on 07-06-2022 Protein [Mass/Vol] 6.8 g/dL 6.1-7.9 [facility] Serum or plasma alanine villalpando otransferase measurement without P-5'-P (enzymatic activiOrdered By: Isaías Jordan on 07-06-2022 ALT No additional P-5'-P [Catalytic activity/Vol] 38 U/L 10-60 [facility] Serum or plasma albumin/glob ulin mass ratioOrdered By: Isaías Jordan on 07-06-2022 Albumin/Globulin [Mass ratio] 1.6 {ratio} [facility] Serum or plasma alkaline joselito sphatase measurement (enzymatic activity/volume)Ordered By: Isaías Jordan on 07-06-2022 ALP [Catalytic activity/Vol] 102 U/L 32-92 [facility] Serum or plasma anion gap de terminationOrdered By: Isaías Jordan on 07-06-2022 Anion gap [Moles/Vol] 11.9 mmol/L 6.0-15.0 [facility] Serum or plasma aspartate am inotransferase measurement (enzymatic activity/volume)Ordered By: Isaías Jordan on 07-06-2022 AST [Catalytic activity/Vol] 49 U/L 10-42 [facility] Serum or plasma calcium idalmis urement (mass/volume)Ordered By: Isaías Jordan on 07-06-2022 Calcium [Mass/Vol] 9.5 mg/dL 8.2-10.2 [facility] Serum or plasma chloride jose surement (moles/volume)Ordered By: Isaías Jordan on 07-06-2022 Chloride [Moles/Vol] 101 mmol/L 95-114 [facility] Serum or plasma glucose idalmis urement (mass/volume)Ordered By: Isaías Jordan on 07-06-2022 Glucose [Mass/Vol] 102 mg/dL 70-100 [facility] Comment on above: ADA recommended refe rence rangeRandom Glucose Reference Range is dependent on time and content of last meal. Glucose of more than 200 mg/dL in a nonstressed, ambulatory subject supports the diagnosis of Diabetes Mellitus. Serum or plasma potassium me asurement (moles/volume)Ordered By: Isaías Jordan on 07-06-2022 Potassium [Moles/Vol] 5.3 mmol/L 3.5-5.1 [facility] Serum or plasma sodium measu rement (moles/volume)Ordered By: Isaías Jordan on 07-06-2022 Sodium [Moles/Vol] 133 mmol/L 136-146 [facility] Serum or plasma total biliru bin measurement (mass/volume)Ordered By: Isaías Jordan on 07-06-2022 Bilirubin [Mass/Vol] 0.7 mg/dL 0.3-1.2 [facility] Serum or plasma total carbon dioxide measurement (moles/volume)Ordered By: Isaías Jordan on 07-06-2022 CO2 [Moles/Vol] 25.4 mmol/L 22.0-30.0 [facility] Serum or plasma urea nitroge n measurement (mass/volume)Ordered By: Isaías Jordan on 07-06-2022 Urea nitrogen [Mass/Vol] 18 mg/dL 03-29 [facility] CBC AUTO DIFFon 06-22-2022 BASO # 0.0 103/ul Normal 0.0-0.1 [facility] Comment on above: Performed By: #### C BC #### [facility] [address] [address] [address] Doreen Betancourt Basophils/100 WBC (Bld) 0.5 % Normal 0.2-2.0 [facility] Comment on above: Performed By: #### C BC #### [facility] [address] [address] [address] Doreen Betancourt EO # 0.1 103/ul Normal 0.0-0.7 [facility] Comment on above: Performed By: #### C BC #### [facility] [address] [place] [address] Dr. Doreen Betancourt Eosinophils/100 WBC (Bld) 1.3 % Normal 0.9-7.0 [facility] Comment on above: Performed By: #### C BC #### [facility] [address] [address] [address] Doreen Betancourt Erythrocyte distribution width (RBC) [Ratio] 15.3 % Critically high 11.0-15.0 [facility] Comment on above: Performed By: #### C BC #### [facility] [address] [place] [address] Dr. Doreen Betancourt Hematocrit (Bld) [Volume fraction] 38.7 % Normal 36.0-48.0 [facility] Comment on above: Performed By: #### C BC #### [facility] [address] [place] [address] Dr. Doreen Betancourt Hemoglobin (Bld) [Mass/Vol] 12.5 g/dL Normal 12.0-16.0 [facility] Comment on above: Performed By: #### C BC #### [facility] [address] [place] [address] Dr. Doreen Betancourt IG # 0.01 10e3/ul Normal 0.00-0.03 [facility] Comment on above: Performed By: #### C BC #### [facility] [address] [place] [address] Dr. Doreen Betancourt IG % 0.3 % Normal 0.0-0.5 [facility] Comment on above: Performed By: #### C BC #### [facility] [address] [place] [address] Dr. Doreen Betancourt LYMPH # 1.8 103/ul Normal 1.2-3.8 [facility] Comment on above: Performed By: #### C BC #### [facility] [address] [place] [address] Dr. Doreen Betancourt Lymphocytes/100 WBC (Bld) 46.0 % Normal 20.5-60.0 [facility] Comment on above: Performed By: #### C BC #### [facility] [address] [place] [address] Dr. Doreen Betancourt MANUAL DIFF REQ NO Normal [facility] Comment on above: Performed By: #### C BC #### [facility] [address] [place] [address] Dr. Doreen Betancourt MCH (RBC) [Entitic mass] 30.0 pg Normal 26.7-34.0 [facility] Comment on above: Performed By: #### C BC #### [facility] [address] [place] [address] Dr. Doreen Betancourt MCHC (RBC) [Mass/Vol] 32.3 g/dL Normal 29.9-35.2 [facility] Comment on above: Performed By: #### C BC #### [facility] [address] [place] [address] Dr. Doreen Betancourt MCV (RBC) [Entitic vol] 93.0 fL Normal 81.0-99.0 [facility] Comment on above: Performed By: #### C BC #### [facility] [address] [place] [address] Dr. Doreen Betancourt MONO # 0.4 103/ul Normal 0.3-0.8 [facility] Comment on above: Performed By: #### C BC #### [facility] [address] [place] [address] Dr. Doreen Betancourt Monocytes/100 WBC (Bld) 9.5 % Normal 1.7-12.0 [facility] Comment on above: Performed By: #### C BC #### [facility] [address] [place] [address] Dr. Doreen Betancourt NEUT # 1.7 103/ul Normal 1.4-6.5 [facility] Comment on above: Performed By: #### C BC #### [facility] [address] [place] [address] Dr. Doreen Betancourt Neutrophils/100 WBC (Bld) 42.4 % Critically low 43.0-75.0 [facility] Comment on above: Performed By: #### C BC #### [facility] [address] [place] [address] Dr. Doreen Betancourt Platelet mean volume (Bld) [Entitic vol] 9.9 fL Normal 9.5-13.5 [facility] Comment on above: Performed By: #### C BC #### [facility] [address] [place] [address] Dr. Doreen Betancourt PLT 178 103/ul Normal 150-450 [facility] Comment on above: Performed By: #### C BC #### [facility] [address] [place] [address] Dr. Doreen Betancourt RBC 4.16 106/ul Critically low 4.20-5.40 [facility] Comment on above: Performed By: #### C BC #### [facility] [address] [place] [address] Dr. Doreen Betancourt WBC 4.0 103/ul Normal 4.0-11.0 [facility] Comment on above: Performed By: #### C BC #### [facility] [address] [place] [address] Dr. Doreen Betancourt MAGNESIUMon 06-22-2022 Magnesium [Mass/Vol] 1.9 mg/dL Normal 1.8-2.4 [facility] Comment on above: Performed By: #### M G, CMP #### [facility] [address] [place], [place] [id number] Dr. Doreen Betancourt PROF 14(COMP METB)on 022 Albumin [Mass/Vol] 3.7 g/dL Normal 3.4-5.0 [facility] Comment on above: Performed By: #### M G, CMP #### [facility] [address] [place] [address] Dr. Doreen Betancourt Albumin/Globulin [Mass ratio] 1.1 {ratio} Normal [facility] Comment on above: Performed By: #### M G, CMP #### [facility] [address] [place] [address] Dr. Doreen Betancourt ALP [Catalytic activity/Vol] 125 U/L Critically high 46-116 [facility] Comment on above: Performed By: #### M G, CMP #### [facility] [address] [place] [address] Dr. Doreen Betancourt ALT [Catalytic activity/Vol] 16 U/L Normal 14-59 [facility] Comment on above: Performed By: #### M G, CMP #### [facility] [address] [place] [address] Dr. Doreen Betancourt Anion gap [Moles/Vol] 8.8 mmol/L Normal [facility] Comment on above: Performed By: #### M G, CMP #### [facility] [address] [place] [address] Dr. Doreen Betancourt AST [Catalytic activity/Vol] 5 U/L Critically low 15-37 [facility] Comment on above: Performed By: #### M G, CMP #### [facility] [address] [place] [address] Dr. Doreen Betancourt Bilirubin [Mass/Vol] 0.3 mg/dL Normal 0.2-1.0 [facility] Comment on above: Performed By: #### M G, CMP #### [facility] [address] [place] [address] Dr. Doreen Betancourt Calcium [Mass/Vol] 8.8 mg/dL Normal 8.5-10.1 [facility] Comment on above: Performed By: #### M G, CMP #### [facility] [address] [address] [address] Doreen Betancourt Chloride [Moles/Vol] 104 mmol/L Normal 98-107 [facility] Comment on above: Performed By: #### M G, CMP #### [facility] [address] [address] [address] Doreen Betancourt CO2 [Moles/Vol] 29.5 mmol/L Normal 21.0-32.0 [facility] Comment on above: Performed By: #### M G, CMP #### [facility] [address] [address] [address] Doreen Betancourt Creatinine [Mass/Vol] 0.75 mg/dL Normal 0.55-1.02 [facility] Comment on above: Performed By: #### M G, CMP #### [facility] [address] [place] [address] Dr. Doreen Betancourt EGFR-AF ZAMBIAN >60 Normal >=60 [facility] Comment on above: Performed By: #### M G, CMP #### [facility] [address] [place] [address] Dr. Doreen Betancourt EGFR-NON AF ZAMBIAN >60 Normal >=60 [facility] Comment on above: Performed By: #### M G, CMP #### [facility] [address] [place] [address] Dr. Doreen Betancourt Globulin (S) [Mass/Vol] 3.3 g/dL Normal [facility] Comment on above: Performed By: #### M G, CMP #### [facility] [address] [place] [address] Dr. Doreen Betancourt Glucose [Mass/Vol] 110 mg/dL Critically high 74-106 [facility] Comment on above: Performed By: #### M G, CMP #### [facility] [address] [place] [address] Dr. Doreen Betancourt Potassium [Moles/Vol] 4.3 mmol/L Normal 3.5-5.1 [facility] Comment on above: Performed By: #### M G, CMP #### [facility] [address] [place] [address] Dr. Doreen Betancourt Protein [Mass/Vol] 7.0 g/dL Normal 6.4-8.2 [facility] Comment on above: Performed By: #### M G, CMP #### [facility] [address] [place] [address] Dr. Doreen Betancourt Sodium [Moles/Vol] 138 mmol/L Normal 136-145 [facility] Comment on above: Performed By: #### M G, CMP #### [facility] [address] [place] [address] Dr. Doreen Betancourt Urea nitrogen [Mass/Vol] 11.0 mg/dL Normal 7.0-18.0 [facility] Comment on above: Performed By: #### M G, CMP #### [facility] [address] [place] [address] Dr. Doreen Betancourt Urea nitrogen/Creatinine [Mass ratio] 14.7 mg/mg Normal [facility] Comment on above: Performed By: #### M G, CMP #### [facility] [address] [place] [address] Dr. Doreen Betancourt CBC AUTO DIFFon 06-08-2022 BASO # 0.0 103/ul Normal 0.0-0.1 [facility] Comment on above: Performed By: #### M G, CMP #### [facility] [address] [place] [address] Dr. Doreen Betancourt Basophils/100 WBC (Bld) 0.8 % Normal 0.2-2.0 [facility] Comment on above: Performed By: #### M G, CMP #### [facility] [address] [place] [address] Dr. Doreen Betancourt EO # 0.1 103/ul Normal 0.0-0.7 [facility] Comment on above: Performed By: #### M G, CMP #### [facility] [address] [place] [address] Dr. Doreen Betancourt Eosinophils/100 WBC (Bld) 2.3 % Normal 0.9-7.0 [facility] Comment on above: Performed By: #### M G, CMP #### [facility] [address] [place] [address] Dr. Doreen Betancourt Erythrocyte distribution width (RBC) [Ratio] 14.5 % Normal 11.0-15.0 [facility] Comment on above: Performed By: #### M G, CMP #### [facility] [address] [place] [address] Dr. Doreen Betancourt Hematocrit (Bld) [Volume fraction] 38.8 % Normal 36.0-48.0 [facility] Comment on above: Performed By: #### M G, CMP #### [facility] [address] [place] [address] Dr. Doreen Betancourt Hemoglobin (Bld) [Mass/Vol] 12.6 g/dL Normal 12.0-16.0 [facility] Comment on above: Performed By: #### M G, CMP #### [facility] [address] [place] [address] Dr. Doreen Betancourt IG # 0.00 10e3/ul Normal 0.00-0.03 [facility] Comment on above: Performed By: #### M G, CMP #### [facility] [address] [place] [address] Dr. Doreen Betancourt IG % 0.0 % Normal 0.0-0.5 [facility] Comment on above: Performed By: #### M G, CMP #### [facility] [address] [place] [address] Dr. Doreen Betancourt LYMPH # 1.9 103/ul Normal 1.2-3.8 [facility] Comment on above: Performed By: #### M G, CMP #### [facility] [address] [place] [address] Dr. Doreen Betancourt Lymphocytes/100 WBC (Bld) 46.7 % Normal 20.5-60.0 [facility] Comment on above: Performed By: #### M G, CMP #### [facility] [address] [place] [address] Dr. Doreen Betancourt MANUAL DIFF REQ NO Normal [facility] Comment on above: Performed By: #### M G, CMP #### [facility] [address] [address] [address] Doreen Betancourt MCH (RBC) [Entitic mass] 30.3 pg Normal 26.7-34.0 [facility] Comment on above: Performed By: #### M G, CMP #### [facility] [address] [place] [address] Dr. Doreen Betancourt MCHC (RBC) [Mass/Vol] 32.5 g/dL Normal 29.9-35.2 [facility] Comment on above: Performed By: #### M G, CMP #### [facility] [address] [place] [address] Dr. Doreen Betancourt MCV (RBC) [Entitic vol] 93.3 fL Normal 81.0-99.0 [facility] Comment on above: Performed By: #### M G, CMP #### [facility] [address] [place] [address] Dr. Doreen Betancourt MONO # 0.4 103/ul Normal 0.3-0.8 [facility] Comment on above: Performed By: #### M G, CMP #### [facility] [address] [place] [address] Dr. Doreen Betancourt Monocytes/100 WBC (Bld) 11.1 % Normal 1.7-12.0 [facility] Comment on above: Performed By: #### M G, CMP #### [facility] [address] [place] [address] Dr. Doreen Betancourt NEUT # 1.6 103/ul Normal 1.4-6.5 [facility] Comment on above: Performed By: #### M G, CMP #### [facility] [address] [place] [address] Dr. Doreen Betancourt Neutrophils/100 WBC (Bld) 39.1 % Critically low 43.0-75.0 [facility] Comment on above: Performed By: #### M G, CMP #### [facility] [address] [place] [address] Dr. Doreen Betancourt Platelet mean volume (Bld) [Entitic vol] 9.9 fL Normal 9.5-13.5 [facility] Comment on above: Performed By: #### M G, CMP #### [facility] [address] [place] [address] Dr. Doreen Betancourt PLT 220 103/ul Normal 150-450 [facility] Comment on above: Performed By: #### M G, CMP #### [facility] [address] [place] [address] Dr. Doreen Betancourt RBC 4.16 106/ul Critically low 4.20-5.40 [facility] Comment on above: Performed By: #### M G, CMP #### [facility] [address] [place] [address] Dr. Doreen Betancourt WBC 4.0 103/ul Normal 4.0-11.0 [facility] Comment on above: Performed By: #### M G, CMP #### [facility] [address] [place] [address] Dr. Doreen Betancourt MAGNESIUMon 06-08-2022 Magnesium [Mass/Vol] 2.2 mg/dL Normal 1.8-2.4 [facility] Comment on above: Performed By: #### C VDTB #### [facility] [address] [place] [address] Dr. Doreen Betancourt PROF 14(COMP METB)on 022 Albumin [Mass/Vol] 3.9 g/dL Normal 3.4-5.0 [facility] Comment on above: Performed By: #### C VDTBH #### [facility] [address] [place] [address] Dr. Doreen Betancourt Albumin/Globulin [Mass ratio] 1.1 {ratio} Normal [facility] Comment on above: Performed By: #### C VDTBH #### [facility] [address] [place] [address] Dr. Doreen Betancourt ALP [Catalytic activity/Vol] 100 U/L Normal 46-116 [facility] Comment on above: Performed By: #### C VDTBH #### [facility] [address] [place] [address] Dr. Doreen Betancourt ALT [Catalytic activity/Vol] 19 U/L Normal 14-59 [facility] Comment on above: Performed By: #### C VDTBH #### [facility] [address] [place] [address] Dr. Doreen Betancourt Anion gap [Moles/Vol] 6.9 mmol/L Normal [facility] Comment on above: Performed By: #### C VDTBH #### [facility] [address] [place] [address] Dr. Doreen Betancourt AST [Catalytic activity/Vol] 14 U/L Critically low 15-37 [facility] Comment on above: Performed By: #### C VDTBH #### [facility] [address] [place] [address] Dr. Doreen Betancourt Bilirubin [Mass/Vol] 0.3 mg/dL Normal 0.2-1.0 [facility] Comment on above: Performed By: #### C VDTBH #### [facility] [address] [place] [address] Dr. Doreen Betancourt Calcium [Mass/Vol] 9.6 mg/dL Normal 8.5-10.1 [facility] Comment on above: Performed By: #### C VDTBH #### [facility] [address] [place] [address] Dr. Doreen Betancourt Chloride [Moles/Vol] 105 mmol/L Normal 98-107 [facility] Comment on above: Performed By: #### C VDTBH #### [facility] [address] [place] [address] Dr. Doreen Betancourt CO2 [Moles/Vol] 32.2 mmol/L Critically high 21.0-32.0 [facility] Comment on above: Performed By: #### C VDTBH #### [facility] [address] [place] [address] Dr. Doreen Betancourt Creatinine [Mass/Vol] 0.69 mg/dL Normal 0.55-1.02 [facility] Comment on above: Performed By: #### C VDTBH #### [facility] [address] [place] [address] Dr. Doreen Betancourt EGFR-AF ZAMBIAN >60 Normal >=60 [facility] Comment on above: Performed By: #### C VDTBH #### [facility] [address] [address] [address] Doreen Beatncourt EGFR-NON AF ZAMBIAN >60 Normal >=60 [facility] Comment on above: Performed By: #### C VDTBH #### [facility] [address] [address] [address] Doreen Betancourt Globulin (S) [Mass/Vol] 3.6 g/dL Normal [facility] Comment on above: Performed By: #### C VDTBH #### [facility] [address] [address] [address] Doreen Betancourt Glucose [Mass/Vol] 103 mg/dL Normal 74-106 [facility] Comment on above: Performed By: #### C VDTBH #### [facility] [address] [address] [address] Doreen Betancourt Potassium [Moles/Vol] 5.1 mmol/L Normal 3.5-5.1 [facility] Comment on above: Performed By: #### C VDTBH #### [facility] [address] [place] [address] Dr. Doreen Betancourt Protein [Mass/Vol] 7.5 g/dL Normal 6.4-8.2 [facility] Comment on above: Performed By: #### C VDTBH #### [facility] [address] [address] [address] Doreen Betancourt Sodium [Moles/Vol] 139 mmol/L Normal 136-145 [facility] Comment on above: Performed By: #### C VDTBH #### [facility] [address] [address] [address] Doreen Betancourt Urea nitrogen [Mass/Vol] 13.0 mg/dL Normal 7.0-18.0 [facility] Comment on above: Performed By: #### C VDTBH #### [facility] [address] [address] [address] Doreen Betancourt Urea nitrogen/Creatinine [Mass ratio] 18.8 mg/mg Normal [facility] Comment on above: Performed By: #### C VDTBH #### [facility] [address] [place] [address] Dr. Doreen Betancourt CBC AUTO DIFFon 06-01-2022 BASO # 0.0 103/ul Normal 0.0-0.1 [facility] Comment on above: Performed By: #### C BC #### [facility] [address] [place] [address] Dr. Doreen Betancourt Basophils/100 WBC (Bld) 0.7 % Normal 0.2-2.0 [facility] Comment on above: Performed By: #### C BC #### [facility] [address] [place] [address] Dr. Doreen Betancourt EO # 0.1 103/ul Normal 0.0-0.7 [facility] Comment on above: Performed By: #### C BC #### [facility] [address] [place] [address] Dr. Doreen Betancourt Eosinophils/100 WBC (Bld) 2.0 % Normal 0.9-7.0 [facility] Comment on above: Performed By: #### C BC #### [facility] [address] [place] [address] Dr. Doreen Betancourt Erythrocyte distribution width (RBC) [Ratio] 13.9 % Normal 11.0-15.0 [facility] Comment on above: Performed By: #### C BC #### [facility] [address] [place] [address] Dr. Doreen Betancourt Hematocrit (Bld) [Volume fraction] 41.2 % Normal 36.0-48.0 [facility] Comment on above: Performed By: #### C BC #### [facility] [address] [place] [address] Dr. Doreen Betancourt Hemoglobin (Bld) [Mass/Vol] 13.2 g/dL Normal 12.0-16.0 [facility] Comment on above: Performed By: #### C BC #### [facility] [address] [place] [address] Dr. Doreen Betancourt IG # 0.01 10e3/ul Normal 0.00-0.03 [facility] Comment on above: Performed By: #### C BC #### [facility] [address] [place] [address] Dr. Doreen Betancourt IG % 0.2 % Normal 0.0-0.5 [facility] Comment on above: Performed By: #### C BC #### [facility] [address] [place] [address] Dr. Doreen Betancourt LYMPH # 1.9 103/ul Normal 1.2-3.8 [facility] Comment on above: Performed By: #### C BC #### [facility] [address] [place] [address] Dr. Doreen Betancourt Lymphocytes/100 WBC (Bld) 41.0 % Normal 20.5-60.0 [facility] Comment on above: Performed By: #### C BC #### [facility] [address] [place] [address] Dr. Doreen Betancourt MANUAL DIFF REQ NO Normal [facility] Comment on above: Performed By: #### C BC #### [facility] [address] [place] [address] Dr. Doreen Betancourt MCH (RBC) [Entitic mass] 29.3 pg Normal 26.7-34.0 [facility] Comment on above: Performed By: #### C BC #### [facility] [address] [place] [address] Dr. Doreen Betancourt MCHC (RBC) [Mass/Vol] 32.0 g/dL Normal 29.9-35.2 [facility] Comment on above: Performed By: #### C BC #### [facility] [address] [place] [address] Dr. Doreen Betancourt MCV (RBC) [Entitic vol] 91.6 fL Normal 81.0-99.0 [facility] Comment on above: Performed By: #### C BC #### [facility] [address] [place] [address] Dr. Doreen Betancourt MONO # 0.1 103/ul Critically low 0.3-0.8 [facility] Comment on above: Performed By: #### C BC #### [facility] [address] [address] [address] Doreen Betancourt Monocytes/100 WBC (Bld) 1.5 % Critically low 1.7-12.0 [facility] Comment on above: Performed By: #### C BC #### [facility] [address] [place] [address] Dr. Doreen Betancourt NEUT # 2.5 103/ul Normal 1.4-6.5 [facility] Comment on above: Performed By: #### C BC #### [facility] [address] [place] [address] Dr. Doreen Betancourt Neutrophils/100 WBC (Bld) 54.6 % Normal 43.0-75.0 [facility] Comment on above: Performed By: #### C BC #### [facility] [address] [place] [address] Dr. Doreen Betancourt Platelet mean volume (Bld) [Entitic vol] 10.5 fL Normal 9.5-13.5 [facility] Comment on above: Performed By: #### C BC #### [facility] [address] [place] [address] Dr. Doreen Betancourt PLT 270 103/ul Normal 150-450 [facility] Comment on above: Performed By: #### C BC #### [facility] [address] [place] [address] Dr. Doreen Betancourt RBC 4.50 106/ul Normal 4.20-5.40 [facility] Comment on above: Performed By: #### C BC #### [facility] [address] [place] [address] Dr. Doreen Betancourt WBC 4.6 103/ul Normal 4.0-11.0 [facility] Comment on above: Performed By: #### C BC #### [facility] [address] [place] [address] Dr. Doreen Betancourt PROF 14(COMP METB)on 022 Albumin [Mass/Vol] 3.9 g/dL Normal 3.4-5.0 [facility] Comment on above: Performed By: #### C BC #### [facility] [address] [place] [address] Dr. Doreen Betancourt Albumin/Globulin [Mass ratio] 1.0 {ratio} Normal [facility] Comment on above: Performed By: #### C BC #### [facility] [address] [place] [address] Dr. Doreen Betancourt ALP [Catalytic activity/Vol] 83 U/L Normal 46-116 [facility] Comment on above: Performed By: #### C BC #### [facility] [address] [place] [address] Dr. Doreen Betancourt ALT [Catalytic activity/Vol] 22 U/L Normal 14-59 [facility] Comment on above: Performed By: #### C BC #### [facility] [address] [place] [address] Dr. Doreen Betancourt Anion gap [Moles/Vol] 12.6 mmol/L Normal [facility] Comment on above: Performed By: #### C BC #### [facility] [address] [place] [address] Dr. Doreen Betancourt AST [Catalytic activity/Vol] 16 U/L Normal 15-37 [facility] Comment on above: Performed By: #### C BC #### [facility] [address] [place] [address] Dr. Doreen Betancourt Bilirubin [Mass/Vol] 0.6 mg/dL Normal 0.2-1.0 [facility] Comment on above: Performed By: #### C BC #### [facility] [address] [place] [address] Dr. Doreen Betancourt Calcium [Mass/Vol] 9.4 mg/dL Normal 8.5-10.1 [facility] Comment on above: Performed By: #### C BC #### [facility] [address] [place] [address] Dr. Doreen Betancourt Chloride [Moles/Vol] 101 mmol/L Normal 98-107 [facility] Comment on above: Performed By: #### C BC #### [facility] [address] [place] [address] Dr. Doreen Betancoutr CO2 [Moles/Vol] 25.9 mmol/L Normal 21.0-32.0 [facility] Comment on above: Performed By: #### C BC #### [facility] [address] [place] [address] Dr. Doreen Betancourt Creatinine [Mass/Vol] 0.64 mg/dL Normal 0.55-1.02 [facility] Comment on above: Performed By: #### C BC #### [facility] [address] [place] [address] Dr. Doreen Betancourt EGFR-AF ZAMBIAN >60 Normal >=60 [facility] Comment on above: Performed By: #### C BC #### [facility] [address] [place] [address] Dr. Doreen Betancourt EGFR-NON AF ZAMBIAN >60 Normal >=60 [facility] Comment on above: Performed By: #### C BC #### [facility] [address] [place] [address] Dr. Doreen Betancourt Globulin (S) [Mass/Vol] 3.9 g/dL Normal [facility] Comment on above: Performed By: #### C BC #### [facility] [address] [place] [address] Dr. Doreen Betancourt Glucose [Mass/Vol] 135 mg/dL Critically high 74-106 [facility] Comment on above: Performed By: #### C BC #### [facility] [address] [place] [address] Dr. Doreen Betancourt Potassium [Moles/Vol] 4.5 mmol/L Normal 3.5-5.1 [facility] Comment on above: Performed By: #### C BC #### [facility] [address] [place] [address] Dr. Doreen Betancourt Protein [Mass/Vol] 7.8 g/dL Normal 6.4-8.2 [facility] Comment on above: Performed By: #### C BC #### [facility] [address] [place] [address] Dr. Doreen Betancourt Sodium [Moles/Vol] 135 mmol/L Critically low 136-145 [facility] Comment on above: Performed By: #### C BC #### [facility] [address] [place] [address] Dr. Doreen Betancourt Urea nitrogen [Mass/Vol] 15.0 mg/dL Normal 7.0-18.0 [facility] Comment on above: Performed By: #### C BC #### [facility] [address] [place] [address] Dr. Doreen Betancourt Urea nitrogen/Creatinine [Mass ratio] 23.4 mg/mg Normal [facility] Comment on above: Performed By: #### C BC #### [facility] [address] [place] [address] Dr. Doreen Betancourt CBC AUTO DIFFon 05-22-2022 BASO # 0.0 103/ul Normal 0.0-0.1 [facility] Comment on above: Performed By: #### C VDTBH #### [facility] [address] [place] [address] Dr. Doreen Betancourt Basophils/100 WBC (Bld) 0.8 % Normal 0.2-2.0 [facility] Comment on above: Performed By: #### C VDTBH #### [facility] [address] [place] [address] Dr. Doreen Betancourt EO # 0.1 103/ul Normal 0.0-0.7 [facility] Comment on above: Performed By: #### C VDTBH #### [facility] [address] [place] [address] Dr. Doreen Betancourt Eosinophils/100 WBC (Bld) 2.7 % Normal 0.9-7.0 [facility] Comment on above: Performed By: #### C VDTBH #### [facility] [address] [place] [address] Dr. Doreen Betancourt Erythrocyte distribution width (RBC) [Ratio] 13.9 % Normal 11.0-15.0 [facility] Comment on above: Performed By: #### C VDTBH #### [facility] [address] [place] [address] Dr. Doreen Betancourt Hematocrit (Bld) [Volume fraction] 40.9 % Normal 36.0-48.0 [facility] Comment on above: Performed By: #### C VDTBH #### [facility] [address] [place] [address] Dr. Doreen Betancourt Hemoglobin (Bld) [Mass/Vol] 13.1 g/dL Normal 12.0-16.0 [facility] Comment on above: Performed By: #### C VDTBH #### [facility] [address] [place] [address] Dr. Doreen Betancourt IG # 0.01 10e3/ul Normal 0.00-0.03 [facility] Comment on above: Performed By: #### C VDTBH #### [facility] [address] [place] [address] Dr. Doreen Betancourt IG % 0.2 % Normal 0.0-0.5 [facility] Comment on above: Performed By: #### C VDTBH #### [facility] [address] [place] [address] Dr. Doreen Betancourt LYMPH # 1.9 103/ul Normal 1.2-3.8 [facility] Comment on above: Performed By: #### C VDTBH #### [facility] [address] [place] [address] Dr. Doeren Betancourt Lymphocytes/100 WBC (Bld) 39.1 % Normal 20.5-60.0 [facility] Comment on above: Performed By: #### C VDTBH #### [facility] [address] [place] [address] Dr. Doreen Betancourt MANUAL DIFF REQ NO Normal [facility] Comment on above: Performed By: #### C VDTBH #### [facility] [address] [place] [address] Dr. Doreen Betancourt MCH (RBC) [Entitic mass] 29.6 pg Normal 26.7-34.0 [facility] Comment on above: Performed By: #### C VDTBH #### [facility] [address] [place] [address] Dr. Doreen Betancourt MCHC (RBC) [Mass/Vol] 32.0 g/dL Normal 29.9-35.2 [facility] Comment on above: Performed By: #### C VDTBH #### [facility] [address] [place] [address] Dr. Doreen Betancourt MCV (RBC) [Entitic vol] 92.3 fL Normal 81.0-99.0 [facility] Comment on above: Performed By: #### C VDTBH #### [facility] [address] [place] [address] Dr. Doreen Betancourt MONO # 0.4 103/ul Normal 0.3-0.8 [facility] Comment on above: Performed By: #### C VDTBH #### [facility] [address] [place] [address] Dr. Doreen Betancourt Monocytes/100 WBC (Bld) 7.6 % Normal 1.7-12.0 [facility] Comment on above: Performed By: #### C VDTBH #### [facility] [address] [place] [address] Dr. Doreen Betancourt NEUT # 2.4 103/ul Normal 1.4-6.5 [facility] Comment on above: Performed By: #### C VDTBH #### [facility] [address] [place] [address] Dr. Doreen Betancourt Neutrophils/100 WBC (Bld) 49.6 % Normal 43.0-75.0 [facility] Comment on above: Performed By: #### C VDTBH #### [facility] [address] [place] [address] Dr. Doreen Betancourt Platelet mean volume (Bld) [Entitic vol] 10.3 fL Normal 9.5-13.5 [facility] Comment on above: Performed By: #### C VDTBH #### [facility] [address] [place] [address] Dr. Doreen Betancourt PLT 274 103/ul Normal 150-450 [facility] Comment on above: Performed By: #### C VDTBH #### [facility] [address] [place] [address] Dr. Doreen Betancourt RBC 4.43 106/ul Normal 4.20-5.40 [facility] Comment on above: Performed By: #### C VDTB #### [facility] [address] [place] [address] Dr. Doreen Betancourt WBC 4.9 103/ul Normal 4.0-11.0 [facility] Comment on above: Performed By: #### C VDTBH #### [facility] [address] [place] [address] Dr. Doreen Betancourt MAGNESIUMon 05-22-2022 Magnesium [Mass/Vol] 2.1 mg/dL Normal 1.8-2.4 [facility] Comment on above: Performed By: #### M G, CMP #### [facility] [address] [place] [address] Dr. Doreen Betancourt PREG HCG QUALon 05-22-2022 , QUAL Negative Normal NEGATIVE [facility] Comment on above: Performed By: #### M Salena, CMP #### [facility] [address] [place] [address] Dr. Doreen Betancourt PROF 14(COMP METB)on 022 Albumin [Mass/Vol] 3.9 g/dL Normal 3.4-5.0 [facility] Comment on above: Performed By: #### M G, CMP #### [facility] [address] [place] [address] Dr. Doreen Betancourt Albumin/Globulin [Mass ratio] 1.1 {ratio} Normal [facility] Comment on above: Performed By: #### M G, CMP #### [facility] [address] [place] [address] Dr. Doreen Betancourt ALP [Catalytic activity/Vol] 81 U/L Normal 46-116 [facility] Comment on above: Performed By: #### M G, CMP #### [facility] [address] [place] [address] Dr. Doreen Betancourt ALT [Catalytic activity/Vol] 27 U/L Normal 14-59 [facility] Comment on above: Performed By: #### M Salena, CMP #### [facility] [address] [address] [address] Doreen Betancourt Anion gap [Moles/Vol] 8.6 mmol/L Normal [facility] Comment on above: Performed By: #### M G, CMP #### [facility] [address] [address] [address] Doreen Betancourt AST [Catalytic activity/Vol] 23 U/L Normal 15-37 [facility] Comment on above: Performed By: #### M G, CMP #### [facility] [address] [address] [address] Doreen Betancourt Bilirubin [Mass/Vol] 0.3 mg/dL Normal 0.2-1.0 [facility] Comment on above: Performed By: #### M G, CMP #### [facility] [address] [place] [address] Dr. Doreen Betancourt Calcium [Mass/Vol] 9.5 mg/dL Normal 8.5-10.1 [facility] Comment on above: Performed By: #### M G, CMP #### [facility] [address] [place] [address] Dr. Doreen Betancourt Chloride [Moles/Vol] 104 mmol/L Normal 98-107 [facility] Comment on above: Performed By: #### M G, CMP #### [facility] [address] [place] [address] Dr. Doreen Betancourt CO2 [Moles/Vol] 31.8 mmol/L Normal 21.0-32.0 [facility] Comment on above: Performed By: #### M G, CMP #### [facility] [address] [place] [address] Dr. Doreen Betancourt Creatinine [Mass/Vol] 0.59 mg/dL Normal 0.55-1.02 [facility] Comment on above: Performed By: #### M G, CMP #### [facility] [address] [place] [address] Dr. Doreen Betancourt EGFR-AF ZAMBIAN >60 Normal >=60 [facility] Comment on above: Performed By: #### M G, CMP #### [facility] [address] [place] [address] Dr. Doreen Betancourt EGFR-NON AF ZAMBIAN >60 Normal >=60 [facility] Comment on above: Performed By: #### M G, CMP #### [facility] [address] [address] [address] Doreen Betancourt Globulin (S) [Mass/Vol] 3.7 g/dL Normal [facility] Comment on above: Performed By: #### M G, CMP #### [facility] [address] [address] [address] Doreen Betancourt Glucose [Mass/Vol] 110 mg/dL Critically high 74-106 [facility] Comment on above: Performed By: #### M G, CMP #### [facility] [address] [address] [address] Doreen Betancourt Potassium [Moles/Vol] 4.4 mmol/L Normal 3.5-5.1 [facility] Comment on above: Performed By: #### M G, CMP #### [facility] [address] [place] [address] Dr. Doreen Betancourt Protein [Mass/Vol] 7.6 g/dL Normal 6.4-8.2 [facility] Comment on above: Performed By: #### M G, CMP #### [facility] [address] [place] [address] Dr. Doreen Betancourt Sodium [Moles/Vol] 140 mmol/L Normal 136-145 [facility] Comment on above: Performed By: #### M G, CMP #### [facility] [address] [place] [address] Dr. Doreen Betancourt Urea nitrogen [Mass/Vol] 17.0 mg/dL Normal 7.0-18.0 [facility] Comment on above: Performed By: #### M G, CMP #### [facility] [address] [place] [address] Dr. Doreen Betancourt Urea nitrogen/Creatinine [Mass ratio] 28.8 mg/mg Normal [facility] Comment on above: Performed By: #### M G, CMP #### [facility] [address] [address] [address] Doreen Betancourt XR CHEST 1 Von [...] NEDA COULTER Date: 2022-05-22 11:22 Normal [facility] Covid-19 PCR (CVDTB)on 05-07 SARS-CoV-2 (COVID-19) RNA MARIVEL+probe Ql (Unsp spec) Not detected Normal NOT DETECTED [facility] Comment on above: Result Comment: This test is not yet approved or cleared by the [place] FDA. When there are no FDA-approved or cleared tests available, and other criteria are met, FDA can make tests available under an emergency access mechanism called an Emergency Use Authorization (EUA). The EUA for this test is supported by the [place] of Health and Human Service's (HHS's) declaration [...] SARS-CoV-2. Performed By: #### C VDTB #### [facility] [address] [address] [address] Doreen Betancourt CBC AUTO DIFFon 04-13-2022 BASO # 0.0 103/ul Normal 0.0-0.1 [facility] Comment on above: Performed By: #### M G, CMP #### [facility] [address] [place] [address] Dr. Doreen Betancourt Basophils/100 WBC (Bld) 0.4 % Normal 0.2-2.0 [facility] Comment on above: Performed By: #### M G, CMP #### [facility] [address] [place] [address] Dr. Doreen Betancourt EO # 0.1 103/ul Normal 0.0-0.7 [facility] Comment on above: Performed By: #### M G, CMP #### [facility] [address] [place] [address] Dr. Doreen Betancourt Eosinophils/100 WBC (Bld) 0.7 % Critically low 0.9-7.0 [facility] Comment on above: Performed By: #### M G, CMP #### [facility] [address] [place] [address] Dr. Doreen Betancourt Erythrocyte distribution width (RBC) [Ratio] 12.9 % Normal 11.0-15.0 [facility] Comment on above: Performed By: #### M G, CMP #### [facility] [address] [place] [address] Dr. Doreen Betancourt Hematocrit (Bld) [Volume fraction] 32.5 % Critically low 36.0-48.0 [facility] Comment on above: Performed By: #### M G, CMP #### [facility] [address] [place] [address] Dr. Doreen Betancourt Hemoglobin (Bld) [Mass/Vol] 10.6 g/dL Critically low 12.0-16.0 [facility] Comment on above: Performed By: #### M G, CMP #### [facility] [address] [place] [address] Dr. Doreen Betancourt IG # 0.02 10e3/ul Normal 0.00-0.03 [facility] Comment on above: Performed By: #### M G, CMP #### [facility] [address] [place] [address] Dr. Doreen Betancourt IG % 0.3 % Normal 0.0-0.5 [facility] Comment on above: Performed By: #### M G, CMP #### [facility] [address] [place] [address] Dr. Doreen Betancourt LYMPH # 2.2 103/ul Normal 1.2-3.8 [facility] Comment on above: Performed By: #### M G, CMP #### [facility] [address] [place] [address] Dr. Doreen Betancourt Lymphocytes/100 WBC (Bld) 32.0 % Normal 20.5-60.0 [facility] Comment on above: Performed By: #### M G, CMP #### [facility] [address] [place] [address] Dr. Doreen Betancourt MANUAL DIFF REQ NO Normal [facility] Comment on above: Performed By: #### M G, CMP #### [facility] [address] [place] [address] Dr. Doreen Betancourt MCH (RBC) [Entitic mass] 30.5 pg Normal 26.7-34.0 [facility] Comment on above: Performed By: #### M G, CMP #### [facility] [address] [place] [address] Dr. Doreen Betancourt MCHC (RBC) [Mass/Vol] 32.6 g/dL Normal 29.9-35.2 [facility] Comment on above: Performed By: #### M G, CMP #### [facility] [address] [place] [address] Dr. Doreen Betancourt MCV (RBC) [Entitic vol] 93.4 fL Normal 81.0-99.0 [facility] Comment on above: Performed By: #### M G, CMP #### [facility] [address] [place] [address] Dr. Doreen Betancourt MONO # 0.6 103/ul Normal 0.3-0.8 [facility] Comment on above: Performed By: #### M G, CMP #### [facility] [address] [place] [address] Dr. Doreen Betancourt Monocytes/100 WBC (Bld) 8.3 % Normal 1.7-12.0 [facility] Comment on above: Performed By: #### Gay G, CMP #### [facility] [address] [place] [address] Dr. Doreen Betancourt NEUT # 3.9 103/ul Normal 1.4-6.5 [facility] Comment on above: Performed By: #### Gay G, CMP #### [facility] [address] [place] [address] Dr. Doreen Betancourt Neutrophils/100 WBC (Bld) 58.3 % Normal 43.0-75.0 [facility] Comment on above: Performed By: #### Gay Martino, CMP #### [facility] [address] [place] [address] Dr. Doreen Betancourt Platelet mean volume (Bld) [Entitic vol] 10.4 fL Normal 9.5-13.5 [facility] Comment on above: Performed By: #### Gay Martino, CMP #### [facility] [address] [place] [address] Dr. Doreen Betancourt PLT 213 103/ul Normal 150-450 [facility] Comment on above: Performed By: #### Gay Salena, CMP #### [facility] [address] [place] [address] Dr. Doreen Betancourt RBC 3.48 106/ul Critically low 4.20-5.40 [facility] Comment on above: Performed By: #### Gay Martino, CMP #### [facility] [address] [place] [address] Dr. Doreen Betancourt WBC 6.8 103/ul Normal 4.0-11.0 [facility] Comment on above: Performed By: #### Gay Martino, CMP #### [facility] [address] [place] [address] Dr. Doreen Betancourt PROF CHEM 8 (BAS METB)on Anion gap [Moles/Vol] 7.3 mmol/L Normal [facility] Comment on above: Performed By: #### Gay Martino, CMP #### [facility] [address] [place] [address] Dr. Doreen Betancourt Calcium [Mass/Vol] 8.8 mg/dL Normal 8.5-10.1 [facility] Comment on above: Performed By: #### M G, CMP #### [facility] [address] [place] [address] Dr. Doreen Betancourt Chloride [Moles/Vol] 105 mmol/L Normal 98-107 [facility] Comment on above: Performed By: #### M G, CMP #### [facility] [address] [place] [address] Dr. Doreen Betancourt CO2 [Moles/Vol] 27.8 mmol/L Normal 21.0-32.0 [facility] Comment on above: Performed By: #### M G, CMP #### [facility] [address] [place] [address] Dr. Doreen Betancourt Creatinine [Mass/Vol] 0.57 mg/dL Normal 0.55-1.02 [facility] Comment on above: Performed By: #### M G, CMP #### [facility] [address] [place] [address] Dr. Doreen Betancourt EGFR-AF ZAMBIAN >60 Normal >=60 [facility] Comment on above: Performed By: #### M G, CMP #### [facility] [address] [place] [address] Dr. Doreen Betancourt EGFR-NON AF ZAMBIAN >60 Normal >=60 [facility] Comment on above: Performed By: #### M G, CMP #### [facility] [address] [place] [address] Dr. Doreen Betancourt Glucose [Mass/Vol] 93 mg/dL Normal 74-106 [facility] Comment on above: Performed By: #### M G, CMP #### [facility] [address] [place] [address] Dr. Doreen Betancourt Potassium [Moles/Vol] 4.1 mmol/L Normal 3.5-5.1 [facility] Comment on above: Performed By: #### M G, CMP #### [facility] [address] [place] [address] Dr. Doreen Betancourt Sodium [Moles/Vol] 136 mmol/L Normal 136-145 [facility] Comment on above: Performed By: #### M Salena, CMP #### [facility] [address] [place] [address] Dr. Doreen Betancourt Urea nitrogen [Mass/Vol] 5.0 mg/dL Critically low 7.0-18.0 [facility] Comment on above: Performed By: #### Gay Martino, CMP #### [facility] [address] [place] [address] Dr. Doreen Betancourt Urea nitrogen/Creatinine [Mass ratio] 8.8 mg/mg Normal [facility] [facility] Comment on above: Performed By: #### Gay Martino, CMP #### [facility] [address] [place] [address] Dr. Doreen Betancourt PROF CHEM 8 (BAS METB)on Anion gap [Moles/Vol] 9.6 mmol/L Normal [facility] Comment on above: Performed By: #### C VDTB #### [facility] [address] [place] [address] Dr. Doreen Betancourt Calcium [Mass/Vol] 8.8 mg/dL Normal 8.5-10.1 [facility] Comment on above: Performed By: #### C VDTBH #### [facility] [address] [place] [address] Dr. Doreen Betancourt Chloride [Moles/Vol] 101 mmol/L Normal 98-107 [facility] Comment on above: Performed By: #### C VDTBH #### [facility] [address] [place] [address] Dr. Doreen Betancourt CO2 [Moles/Vol] 26.8 mmol/L Normal 21.0-32.0 [facility] Comment on above: Performed By: #### C VDTBH #### [facility] [address] [place] [address] Dr. Doreen Betancourt Creatinine [Mass/Vol] 0.53 mg/dL Critically low 0.55-1.02 [facility] Comment on above: Performed By: #### C VDTBH #### [facility] [address] [address] [address] Doreen Betancourt EGFR-AF ZAMBIAN >60 Normal >=60 [facility] Comment on above: Performed By: #### C VDTBH #### [facility] [address] [address] [address] Doreen Betancourt EGFR-NON AF ZAMBIAN >60 Normal >=60 [facility] Comment on above: Performed By: #### C VDTBH #### [facility] [address] [address] [address] Doreen Betancourt Glucose [Mass/Vol] 122 mg/dL Critically high 74-106 [facility] Comment on above: Performed By: #### C VDTBH #### [facility] [address] [address] [address] Doreen Betancourt Potassium [Moles/Vol] 3.4 mmol/L Critically low 3.5-5.1 [facility] Comment on above: Performed By: #### C VDTBH #### [facility] [address] [address] [address] Doreen Betancourt Sodium [Moles/Vol] 134 mmol/L Critically low 136-145 [facility] Comment on above: Performed By: #### C VDTBH #### [facility] [address] [place] [address] Dr. Doreen Betancourt Urea nitrogen [Mass/Vol] 6.0 mg/dL Critically low 7.0-18.0 [facility] Comment on above: Performed By: #### C VDTBH #### [facility] [address] [place] [address] Dr. Doreen Betancourt Urea nitrogen/Creatinine [Mass ratio] 11.3 mg/mg Normal [facility] Comment on above: Performed By: #### C VDTBH #### [facility] [address] [place] [address] Dr. Doreen Betancourt CBC AUTO DIFFon 04-11-2022 BASO # 0.0 103/ul Normal 0.0-0.1 [facility] Comment on above: Performed By: #### M G, CMP #### [facility] [address] [place] [address] Dr. Doreen Betancourt Basophils/100 WBC (Bld) 0.1 % Critically low 0.2-2.0 [facility] Comment on above: Performed By: #### M G, CMP #### [facility] [address] [place] [address] Dr. Doreen Betancourt EO # 0.0 103/ul Normal 0.0-0.7 [facility] Comment on above: Performed By: #### M G, CMP #### [facility] [address] [place] [address] Dr. Doreen Betancourt Eosinophils/100 WBC (Bld) 0.0 % Critically low 0.9-7.0 [facility] Comment on above: Performed By: #### M G, CMP #### [facility] [address] [place] [address] Dr. Doreen Betancourt Erythrocyte distribution width (RBC) [Ratio] 13.0 % Normal 11.0-15.0 [facility] Comment on above: Performed By: #### M G, CMP #### [facility] [address] [place] [address] Dr. Doreen Betancourt Hematocrit (Bld) [Volume fraction] 35.6 % Critically low 36.0-48.0 [facility] Comment on above: Performed By: #### M G, CMP #### [facility] [address] [place] [address] Dr. Doreen Betancourt Hemoglobin (Bld) [Mass/Vol] 11.5 g/dL Critically low 12.0-16.0 [facility] Comment on above: Performed By: #### M G, CMP #### [facility] [address] [place] [address] Dr. Doreen Betancourt IG # 0.02 10e3/ul Normal 0.00-0.03 [facility] Comment on above: Performed By: #### M G, CMP #### [facility] [address] [place] [address] Dr. Doreen Betancourt IG % 0.2 % Normal 0.0-0.5 [facility] Comment on above: Performed By: #### M G, CMP #### [facility] [address] [address] [address] Doreen Betancourt LYMPH # 1.3 103/ul Normal 1.2-3.8 [facility] Comment on above: Performed By: #### M G, CMP #### [facility] [address] [address] [address] Doreen Betancourt Lymphocytes/100 WBC (Bld) 12.4 % Critically low 20.5-60.0 [facility] Comment on above: Performed By: #### M G, CMP #### [facility] [address] [address] [address] Doreen Betancourt MANUAL DIFF REQ NO Normal [facility] Comment on above: Performed By: #### M G, CMP #### [facility] [address] [place] [address] Dr. Doreen Betancourt MCH (RBC) [Entitic mass] 29.9 pg Normal 26.7-34.0 [facility] Comment on above: Performed By: #### M G, CMP #### [facility] [address] [address] [address] Doreen Betancourt MCHC (RBC) [Mass/Vol] 32.3 g/dL Normal 29.9-35.2 [facility] Comment on above: Performed By: #### M G, CMP #### [facility] [address] [address] [address] Doreen Betancourt MCV (RBC) [Entitic vol] 92.7 fL Normal 81.0-99.0 [facility] Comment on above: Performed By: #### M G, CMP #### [facility] [address] [address] [address] Doreen Betancourt MONO # 0.9 103/ul Critically high 0.3-0.8 [facility] Comment on above: Performed By: #### M G, CMP #### [facility] [address] [address] [address] Doreen Betancourt Monocytes/100 WBC (Bld) 8.8 % Normal 1.7-12.0 [facility] Comment on above: Performed By: #### M G, CMP #### [facility] [address] [address] [address] Doreen Betancourt NEUT # 8.3 103/ul Critically high 1.4-6.5 [facility] Comment on above: Performed By: #### M G, CMP #### [facility] [address] [place] [address] Dr. Doreen Betancourt Neutrophils/100 WBC (Bld) 78.5 % Critically high 43.0-75.0 [facility] Comment on above: Performed By: #### M G, CMP #### [facility] [address] [place] [address] Dr. Doreen Betancourt Platelet mean volume (Bld) [Entitic vol] 10.6 fL Normal 9.5-13.5 [facility] Comment on above: Performed By: #### M G, CMP #### [facility] [address] [place] [address] Dr. Doreen Betancourt PLT 218 103/ul Normal 150-450 [facility] Comment on above: Performed By: #### M G, CMP #### [facility] [address] [place] [address] Dr. Doreen Betancourt RBC 3.84 106/ul Critically low 4.20-5.40 [facility] Comment on above: Performed By: #### M G, CMP #### [facility] [address] [place] [address] Dr. Doreen Betancourt WBC 10.6 103/ul Normal 4.0-11.0 [facility] Comment on above: Performed By: #### M G, CMP #### [facility] [address] [place] [address] Dr. Doreen Betancourt PROF CHEM 8 (BAS METB)on Anion gap [Moles/Vol] 9.4 mmol/L Normal [facility] Comment on above: Performed By: #### M G, CMP #### [facility] [address] [place] [address] Dr. Doreen Betancourt Calcium [Mass/Vol] 8.4 mg/dL Critically low 8.5-10.1 [facility] Comment on above: Performed By: #### M G, CMP #### [facility] [address] [place] [address] Dr. Doreen Betancourt Chloride [Moles/Vol] 105 mmol/L Normal 98-107 [facility] Comment on above: Performed By: #### M G, CMP #### [facility] [address] [place] [address] Dr. Doreen Betancourt CO2 [Moles/Vol] 25.1 mmol/L Normal 21.0-32.0 [facility] Comment on above: Performed By: #### M G, CMP #### [facility] [address] [place] [address] Dr. Doreen Betancourt Creatinine [Mass/Vol] 0.50 mg/dL Critically low 0.55-1.02 [facility] Comment on above: Performed By: #### Gay G, CMP #### [facility] [address] [place] [address] Dr. Doreen Betancourt EGFR-AF ZAMBIAN >60 Normal >=60 [facility] Comment on above: Performed By: #### M G, CMP #### [facility] [address] [place] [address] Dr. Doreen Betancourt EGFR-NON AF ZAMBIAN >60 Normal >=60 [facility] Comment on above: Performed By: #### Gay G, CMP #### [facility] [address] [place] [address] Dr. Doreen Betacnourt Glucose [Mass/Vol] 114 mg/dL Critically high 74-106 [facility] Comment on above: Performed By: #### M G, CMP #### [facility] [address] [place] [address] Dr. Doreen Betancourt Potassium [Moles/Vol] 3.5 mmol/L Normal 3.5-5.1 [facility] Comment on above: Performed By: #### M G, CMP #### [facility] [address] [place] [address] Dr. Doreen Betancourt Sodium [Moles/Vol] 136 mmol/L Normal 136-145 [facility] Comment on above: Performed By: #### M G, CMP #### [facility] [address] [place] [address] Dr. Doreen Betancourt Urea nitrogen [Mass/Vol] 6.0 mg/dL Critically low 7.0-18.0 [facility] Comment on above: Performed By: #### M G, CMP #### [facility] [address] [place] [address] Dr. Doreen Betancourt Urea nitrogen/Creatinine [Mass ratio] 12.0 mg/mg Normal [facility] Comment on above: Performed By: #### M G, CMP #### [facility] [address] [place] [address] Dr. Doreen Betancourt CBC AUTO DIFFon 04-08-2022 BASO # 0.1 103/ul Normal 0.0-0.1 [facility] Comment on above: Performed By: #### M G, CMP #### [facility] [address] [place] [address] Dr. Doreen Betancourt Basophils/100 WBC (Bld) 0.8 % Normal 0.2-2.0 [facility] Comment on above: Performed By: #### M G, CMP #### [facility] [address] [place] [address] Dr. Doreen Betancourt EO # 0.1 103/ul Normal 0.0-0.7 [facility] Comment on above: Performed By: #### M G, CMP #### [facility] [address] [place] [address] Dr. Doreen Betancourt Eosinophils/100 WBC (Bld) 1.8 % Normal 0.9-7.0 [facility] Comment on above: Performed By: #### M G, CMP #### [facility] [address] [place] [address] Dr. Doreen Betancourt Erythrocyte distribution width (RBC) [Ratio] 13.0 % Normal 11.0-15.0 [facility] Comment on above: Performed By: #### M G, CMP #### [facility] [address] [place] [address] Dr. Doreen Betancourt Hematocrit (Bld) [Volume fraction] 42.1 % Normal 36.0-48.0 [facility] Comment on above: Performed By: #### M G, CMP #### [facility] [address] [place] [address] Dr. Doreen Betancourt Hemoglobin (Bld) [Mass/Vol] 13.4 g/dL Normal 12.0-16.0 [facility] Comment on above: Performed By: #### M G, CMP #### [facility] [address] [place] [address] Dr. Doreen Betancourt IG # 0.02 10e3/ul Normal 0.00-0.03 [facility] Comment on above: Performed By: #### M G, CMP #### [facility] [address] [place] [address] Dr. Doreen Betancourt IG % 0.3 % Normal 0.0-0.5 [facility] Comment on above: Performed By: #### M G, CMP #### [facility] [address] [place] [address] Dr. Doreen Betancourt LYMPH # 2.1 103/ul Normal 1.2-3.8 [facility] Comment on above: Performed By: #### M G, CMP #### [facility] [address] [place] [address] Dr. Doreen Betancourt Lymphocytes/100 WBC (Bld) 31.6 % Normal 20.5-60.0 [facility] Comment on above: Performed By: #### M G, CMP #### [facility] [address] [place] [address] Dr. Doreen Betancourt MANUAL DIFF REQ NO Normal [facility] Comment on above: Performed By: #### M G, CMP #### [facility] [address] [place] [address] Dr. Doreen Betancourt MCH (RBC) [Entitic mass] 30.2 pg Normal 26.7-34.0 [facility] Comment on above: Performed By: #### M G, CMP #### [facility] [address] [place] [address] Dr. Doreen Betnacourt MCHC (RBC) [Mass/Vol] 31.8 g/dL Normal 29.9-35.2 [facility] Comment on above: Performed By: #### M G, CMP #### [facility] [address] [address] [address] Doreen Betancourt MCV (RBC) [Entitic vol] 95.0 fL Normal 81.0-99.0 [facility] Comment on above: Performed By: #### M G, CMP #### [facility] [address] [place] [address] Dr. Doreen Betancourt MONO # 0.4 103/ul Normal 0.3-0.8 [facility] Comment on above: Performed By: #### M G, CMP #### [facility] [address] [place] [address] Dr. Doreen Betancourt Monocytes/100 WBC (Bld) 6.2 % Normal 1.7-12.0 [facility] Comment on above: Performed By: #### M G, CMP #### [facility] [address] [place] [address] Dr. Doreen Betancourt NEUT # 3.9 103/ul Normal 1.4-6.5 [facility] Comment on above: Performed By: #### M G, CMP #### [facility] [address] [place] [address] Dr. Doreen Betancourt Neutrophils/100 WBC (Bld) 59.3 % Normal 43.0-75.0 [facility] Comment on above: Performed By: #### M G, CMP #### [facility] [address] [place] [address] Dr. Doreen Betancourt Platelet mean volume (Bld) [Entitic vol] 10.2 fL Normal 9.5-13.5 [facility] Comment on above: Performed By: #### M G, CMP #### [facility] [address] [place] [address] Dr. Doreen Betancourt PLT 276 103/ul Normal 150-450 [facility] Comment on above: Performed By: #### M G, CMP #### [facility] [address] [place] [address] Dr. Doreen Betancourt RBC 4.43 106/ul Normal 4.20-5.40 [facility] Comment on above: Performed By: #### M G, CMP #### [facility] [address] [place] [address] Dr. Doreen Betancourt WBC 6.6 103/ul Normal 4.0-11.0 [facility] Comment on above: Performed By: #### M G, CMP #### [facility] [address] [place] [address] Dr. Doreen Betancourt [facility]on SARS-CoV-2 (COVID-19) RNA MARIVEL+probe Ql (Unsp spec) Not detected Normal NOT DETECTED [facility] Comment on above: Result Comment: When [...] for this test is supported by the [employer] of Health and Human Service's declaration that [...] Performed By: #### M G, CMP #### [facility] [address] [place] [address] Dr. Doreen Betancourt TYPE AND SCREENon 04-08-2022 TYPE AND SCREEN Negative Normal [facility] Comment on above: Performed By: #### M G, CMP #### [facility] [address] [place] [address] Dr. Doreen Betancourt CEAon 2022 CEA 4.9 ng/mL Critically high 0.0-4.7 [facility] Comment on above: Result Comment: Nons mokers <3.9 Smokers <5.6 . [employer] Electrochemiluminescence Immunoassay (ECLIA) . Values obtained with different assay methods or kits cannot be used interchangeably. Results cannot be interpreted as absolute evidence of the presence or absence of malignant disease. Performed By: #### M Salena, CMP #### [facility] [address] [place] [address] Dr. Doreen Betancourt PROF 14(COMP METB)on 022 Albumin [Mass/Vol] 3.6 g/dL Normal 3.4-5.0 [facility] Comment on above: Performed By: #### M Salena, CMP #### [facility] [address] [place] [address] Dr. Doreen Betancourt Albumin/Globulin [Mass ratio] 1.1 {ratio} Normal [facility] Comment on above: Performed By: #### Gay Martino, CMP #### [facility] [address] [place] [address] Dr. Doreen Betancourt ALP [Catalytic activity/Vol] 76 U/L Normal 46-116 [facility] Comment on above: Performed By: #### Gay Martino, CMP #### [facility] [address] [place] [address] Dr. Doreen Betancourt ALT [Catalytic activity/Vol] 18 U/L Normal 14-59 [facility] Comment on above: Performed By: #### Gay Salena, CMP #### [facility] [address] [place] [address] Dr. Doreen Betancourt Anion gap [Moles/Vol] 12.7 mmol/L Normal [facility] Comment on above: Performed By: #### M G, CMP #### [facility] [address] [place] [address] Dr. Doreen Betancourt AST [Catalytic activity/Vol] 15 U/L Normal 15-37 [facility] Comment on above: Performed By: #### M G, CMP #### [facility] [address] [place] [address] Dr. Doreen Betancourt Bilirubin [Mass/Vol] 0.3 mg/dL Normal 0.2-1.0 [facility] Comment on above: Performed By: #### M G, CMP #### [facility] [address] [place] [address] Dr. Doreen Betancourt Calcium [Mass/Vol] 8.8 mg/dL Normal 8.5-10.1 [facility] Comment on above: Performed By: #### M G, CMP #### [facility] [address] [place] [address] Dr. Doreen Betancourt Chloride [Moles/Vol] 104 mmol/L Normal 98-107 [facility] Comment on above: Performed By: #### M G, CMP #### [facility] [address] [place] [address] Dr. Doreen Betancourt CO2 [Moles/Vol] 25.5 mmol/L Normal 21.0-32.0 [facility] Comment on above: Performed By: #### M G, CMP #### [facility] [address] [place] [address] Dr. Doreen Betancourt Creatinine [Mass/Vol] 0.61 mg/dL Normal 0.55-1.02 [facility] Comment on above: Performed By: #### M G, CMP #### [facility] [address] [place] [address] Dr. Doreen Betancourt EGFR-AF ZAMBIAN >60 Normal >=60 [facility] Comment on above: Performed By: #### M G, CMP #### [facility] [address] [place] [address] Dr. Doreen Betancourt EGFR-NON AF ZAMBIAN >60 Normal >=60 [facility] Comment on above: Performed By: #### M G, CMP #### [facility] [address] [place] [address] Dr. Doreen Betancourt Globulin (S) [Mass/Vol] 3.3 g/dL Normal [facility] Comment on above: Performed By: #### M G, CMP #### [facility] [address] [place] [address] Dr. Doreen Betancourt Glucose [Mass/Vol] 93 mg/dL Normal 74-106 [facility] Comment on above: Performed By: #### M G, CMP #### [facility] [address] [address] [address] Doreen Betancourt Potassium [Moles/Vol] 4.2 mmol/L Normal 3.5-5.1 [facility] Comment on above: Performed By: #### M G, CMP #### [facility] [address] [address] [address] Doreen Betancourt Protein [Mass/Vol] 6.9 g/dL Normal 6.4-8.2 [facility] Comment on above: Performed By: #### M G, CMP #### [facility] [address] [address] [address] Doreen Betancourt Sodium [Moles/Vol] 138 mmol/L Normal 136-145 [facility] Comment on above: Performed By: #### M G, CMP #### [facility] [address] [address] [address] Doreen Betancourt Urea nitrogen [Mass/Vol] 17.0 mg/dL Normal 7.0-18.0 [facility] Comment on above: Performed By: #### M G, CMP #### [facility] [address] [address] [address] Doreen Betancourt Urea nitrogen/Creatinine [Mass ratio] 27.9 mg/mg Normal [facility] Comment on above: Performed By: #### M G, CMP #### [facility] [address] [address] ABD/PELV W CONon [...] NEDA COULTER Date: 2022-03-27 17:13 Normal [facility] Covid-19 PCR ([facility])on SARS-CoV-2 (COVID-19) RNA MARIVEL+probe Ql (Unsp spec) Not detected Normal NOT DETECTED [facility] Comment on above: Result Comment: This test is not yet approved or cleared by the [place] FDA. When there are no FDA-approved or cleared tests available, and other criteria are met, FDA can make tests available under an emergency access mechanism called an Emergency Use Authorization (EUA). The EUA for this test is supported by the [employer] of Health and Human Service's (HHS's) declaration [...] with SARS-CoV-2. Performed By: #### M G, [facility] #### [facility] [address] [address] ABD/PELV W CONon [...] NEDA COULTER Date: 2022-01-09 17:53 Normal [facility] Coding Summaryon 05-01-2021 Coding Summary [employer] 64 WgvgshbdIQa8kWy+PGhlYWQ+PE 9TLPIpV40tlEJsjO0RO4nJVS5D RWKFTEMOJQ2EIG7evBF6TTarC9 VybiAv HrugrDJbID32QGk5MPU6eVnpDH vwfI7kpURwW5t7IsBpEO22cJ27 DAkbRRVbGzJ4OsShfcmztJXf N0pdLyTdnHMlQog+PHRhYmxlIH lkCJKyVAqsAKKxJrAzgNqaXW1e Vw1yVNPmKNAptFqnmLRaBqYd g9pqZISyTEotFV7pcUdoJ6JolZ L8TQIgw9g3Xs25jTV+PHRkIHN0 mNkxYVgpp505FaNsp0wsULG7 sCFdDPvjJHS3V37fp7B1BBLnII TsIMO4jXV2zE3qnSwpbrfoP1Bb aECcQpL5JMK6oKDgnK3awWvv wtadiZ5jRkc+L28XCC8BKKKOAF 3ODsk5W3SeVozaeOD+IA69NXCf HB76fRZhiDUrl8tmeSd5BbZx XNUnBAI6oNmhFBllp9XmCBJfU2 7bvTKjx5Q5HPMjmEdddFTrHrXb yFD0yU3rRTrtprhrs1lpaaxp Lzclk1uepg09xG37H38rYMazGS LkHVV9LGOkJUZffFomoi2nhU2i Ii8+TRznj4qpe2dkyCb2UuLh VMNydkOpkOecFMI8y3JiSw07A3 MjbGpjt8GzYyn2wp59eHVqe8Y9 sVK1NUxoGMLvvA5wGRbxQfZ3 TMRzOaQsiX31eGNtKOokPo7iyN ilyAckOU5qHHZozheyJRGndZ1p JTStgNOisHbeSG5hHSBklveb h699AlMjKRM7THIxrDYtP3WsjB 8eInKyGUDaERHuA7WviMMfHKzw Y218NMvbUjS6WWGyedUxO4Pb EVVctUzoZuX0k3E6Iy9Ei6Mzmm dvBBD2ZZisRAWoPwL3SdYfOfO0 E2BfWro5YUYbvBpsGQ4jZ0Tc NSZxvwvulrhnfIM5TKThEWJrhG 02vWBgLAidSo5hh7B3f335HNTw NFSpbR36Qm9xtTduCNXvzXNI rR5drhwht4oetlodDiGzADQnGR a4FNd8UDAixLshVcFzDJT8DdM7 WTO4bYIkdN2qvGjxmddpdH2g Oyc+V68rvR5jJDW5MUD3joviEQ NcqiXcWF81BV82V4BzTaapgTBq bGU+UCCdenTpnNhmZE1nYaTv o2rav3UcLMlqM7RoWYIdZWhzSl w4NXGvVFT1vFJ2dM8aQKHoBCld g8O5qML6O6JhhbEjkc9gr7mo NQNeYVnxY44wrTTfp2S5DUJuwR W3ERLlsYlvKgPhmK24Gov+PGNv bMuym7WwPhqyo6ims3wwmOt2 VxQtSIDdbfJlpPurRSB3x7IcPq 90H76wXKfsQSDzLDVnZVLeQUGi mRpqlf4gbD3tEq9+PGNvbCB3 vQH7fX7lEKVaXhM5WFslX188Ii OdsXLpSclah4vto6immMm5ZkDm DJZmzwYpcForZIP9h5ZpSt50 E02vAUvkQFYvITWgJZIxKLZytS ekyq4pdH9cCt1+OE0um8zseu99 fO45eIJ+FIGkSXV7iYesHMeu DAKfdJ2xBSdbJoE9GSFrFiEbpQ 63uFLlJMidMz1fpYnowSkvWB6y RVRkqjkxe469VoPjs2ugRILs lAKlQXqvVCR4Y71dt9D7AKExAA NtYHM7iRN8wS7ejVzparqzlALg iCumhbOsgDdzHQyiMFqxU018 IHRvcDsnPlBhdGllbnQgTmFtZT g6L8MdTwl4XONtqJmpNT9ggGTo YJrdLy2zwUtkgDhsVY0rKBCu vmjlj056EaOar6zvWGNivXOaIW kaRRV4E45la3L6YVInBVBbRHS3 fEP9yB0uqCudpmbmgSGovDah fkGirNeqWQexLEznJ818APMyiK hxTjSmgmVfDWJeqWI3AE80KF11 yQBwj1W9tQR2W1WnQUNpbexb pduxqZM4WPLlIEBkeQ82Mt7gtI mkXa2xMUYtCFO3CONbuULnA4Sx wV2fKgMcPQNzXWFiR4VkcBFj ZTkiU065SJosToC0IQZxqjXeT0 HcKWNryUrqFbF9c4M1Gw5MT7C7 XK96NG27aNJmt9E4cCY2J5Kp PTQdzbpygvclmCM1FBUiEPFfuS 03Ti2hlWwfCi8sDUGpNIT9MPVn lEYoP7BhoU5nQqCxBQDeWICm E5IorVHgOUpiU880STzaDhW1XY HxklLsU8WeOCHeoTnwSzJ2c4Z0 Lw9LTRt9QP31GD43jMPmy2P0 cYX4O6IoYCJfvehcvyutnKA7BD MoZYLekY47No2htVbdXl4oCPRa CRU3GJJtmYYrE8BtlV4iBxMv GQQiBLJgT5AqdEQmKYheO768UI ycDgL5IYTzbvDpP6ApGPVjyXje RcX8d0P6Xk5CTHDmIE34BXS6 gDY6HX77VJ34Y1IkMicafSZueW U+PHRhYmxlIHdpZHRoPScxMDAl QfKowOxfHL2fJq3nHAPpWPSt vQntqGFxPoJsa9gpRVNcXTdsUS 6blJhdC4IbrHR3RCTzt7p2Yg42 V45kZ6GwkAW+VZBkwDS8cYO3 xW2wPbUdLnH0STecU870MeZldJ TsPnzyo2xyx3syhAi9DtA5LZQn uqIpuOlzIHR2y8VaBh56B50d IHdpZHRoPSIxNSUiIHZhbGlnbj 8jfX6rDo4+RXTxdCJ3qQU7pS5f SzKhZkE0AIpzV674MtPioNUv Gbdrf6ndy8wtcBg7CfHeJWDpzv LhlChmAWT3p9CaAb96X9RklNun m8HgIqg3sg53vSYuw4F1hJF1 Z5GpXYYumouvlFDolYxhIR5yHE MuxqjnVPOidX7yLXWmW7x1UgRo VoV9WIkrW7AvetG8IFKauGSq RGloMBN8D45zq1Q8VRMiAJRfNU U3yCN0tQ5ajYtjjohafBBdfRyn dcGejJtuLPlqWKhuJ815MHMo lAcyCKXevA6yOTRflXLtkNgrXX 4wNTBpbjsnPlBFVElUVEksIEpV RElUSDwvdGQ+XZDpVBQ0rEfk NWzhIZDvaC0jDFTvZ7x9WnUrYb R9QUuqX0TlEWKfwokzQu67bA5p YyEuNbF3LHmzD8BnlqE8WNKn eQEzOSarFWX9J62az2P0ABXyUL QsQLZ7vGD6cM2gbHfcoryafTQy dOcoirAjnAyeHMplCDucE186 EGXbfUqfBrH4YkR7XpF2KgZ5A4 PdGlh0UZSefWgqLO9unZBlNRss Kf6hlJeqrYytYZ4bBFXxastp WJAxyC1oDRWeyZZhgCttQM4fSO Qigfupq858KrHpZHI1CKOppXHf J6KilS4aIxAiXKSzKBUmK9Ca xKAhSDptG156ZEpvDbP4QEBnvk FhM4EgEUAabAlkLqH4u3Q5Pa35 NSBZZWFyczwvdGQ+PHRkIHN0 vKfxTKdoANMfhH1hTIWlX7m5Xa XtZaM1LBtyY5GuXFWinpdcKl38 mX6vPhFgExV4CWeqB1DdyiP5 OJAkrVOgNMizTBK5U29nt3F6RM UtIKCnMRE7bMG6tT5odVemqldy bGVmdDsgdmVydGljYWwtYWxp W009BLDdjSdsKoEPXAOARFcviG Q+CRWnDKX5mNcoDBykGDWceD8h DVHmT2p6IxEaLcB4FEnqV2Ba UZQotdhsNt41rI5rHvUwUyB9YT pmV8DegjC8QVGtaPQlSMyiOJH3 A83kl9D7JCPwSYSwHPL5nPI0 fB2nvZysdudwvKUmfDyehjMamI tqGImkXGjyS283FXDbsUjhRq0N WO47PF48O3RgAnaatRZjnBE+ PHRhYmxlIHdpZHRoPScxMDAlJy JzyRabTN0hLd6hICRoYSCbfWji nCGjOqVnz9buPYFaXMvkUN3c hAisW9ZrsOB9DVYvb6d8Wq81P3 5vI3LxkHS+EDJnmVZ8tSF0fV2b GjSpMmF5NSvdD525IaSlhPOt Uabyl5fyn6jhpMd6QlTyPRWndh GjwEvqCYS2d0ZzYb33V81mODfu ZQNcWTWaKHOpCPOhuAtzwe5d yH2vSl1+QTOljOE8gDE3iS7cJl RuRkA7DDweZ268MzCmqTUnNykz Z86zS0CboXN+SKGyFpf0JKWy cJrmIG8wpQZlPOgkUl3mCLX5Tl OuKdRmZIlwY8NhARNcgoowxasg dFA5CUNkIOXlvA64Fw2geLwg Gm4nASIvGOC9FJGwfVFiT2OcpB 6bLpWnIMXyWIAbF1NvaNPkKRya V277YTwnLoX2HAEgwhJvR0Xa UDSygLoqBpR7y8P9No1BnQevkK NoNY7wIcUzIWj9O8XfVfk1PUIt nBdxOU9rsYLlZMjrNt0cyYpr tViyBH5sVGSwaeovt326ZbCon8 ltXZSdbGZjDMwzEKY0U37yf5R0 NDDmRRPvPOG2pDQ2dA4xcCux bjogbGVmdDsgdmVydGljYWwtYW rsV794IQAhrMalLrJEEzi4K3Sk Dco4GYViiIagSH9bcZTbJSbf Iy3esKxedGtwON4wVUKpfxkzt8 00JwFzu0jcDNTrfOWzLZtiLZU9 G35nh6C3NGTcFJXwJZN5jSQ7 oD8whTekcstrlNJusHxhvlZlrF yvWKumKTkaX289RBCdoVlvVc6R Xem8L1VaVev1BMKidGsqDW2l jRWoCSkiSn3vjLkpvBjeCN6rRT Ojsxnry949ZqOkn9pbDUWibJDg HLhpLKX8G26uz3P2VFEyMCUz STC0qJP2cS6ilUwpqerslERfsF voolJqfFehWYtnNXarV990DVGr cDsnPlBheWVyOjwvdGQ+PC90 jw32Y3TnIkulCke7QJFnDAL6uJ J0hP3yJYNgGGhrs1F6sRW1H5Ut eeHcwa4ci0fxXBDlZHlvP05t bGF (more content not included)... [facility] ED Clinical Summaryon 2020 ED Clinical Summary [facility] ? Ur[facility] Care [address] [place], [place] [id number] Clinical Summary PERSON INFORMATION Name: MARYSOL GARDNER Age: 56 Years Sex: FEMALE : 1965 MRN: Acct#: Visit Reason: Wrist laceration; LEFT WRIST LAC Arrival: 04/21/2021 17:52:39 Discharge: 04/21/2021 18:47:00 LOS: 000 00:55 Check In: 04/21/2021 17:52:39 Checkout: 04/21/2021 18:47:00 Address: [address] [place] [address] PCP: Sandro Chin MD PROVIDER INFORMATION Provider [...] PATIENT EDUCATION INFORMATION Instructions: Laceration Care, Adult, Svfi-bc-Lkbs Follow-Up: With: Address: When: Sandro Chin [address] [place] [address] [facility] (1) Within 3 to 5 days Comments: Please follow-up with Dr. Chin, call the office schedule an appointment to be seen in 3 to 5 days for wound check, please take your Augmentin as prescribed, keep the wound clean, apply bacitracin and keep it covered, have sutures removed in 10 to 12 days from today, take arrx-ymt-kcfyouw pain medication as needed, and return back to the urgent care center for any worsening symptoms, concerns, or complications. DIAGNOSIS: 1:Laceration of left wrist Patient Understands: Yes - Patient/family/caregiver verbalizes understanding of instructions given Comment: [facility] ED Patient Summaryon 021 ED Patient Summary [facility] ? Urgent Care [address] [place], [place] [id number] PATIENT DISCHARGE INSTRUCTIONS Patient Information Name: MARYSOL GARDNER Age: 56 Years Date of : 1965 Reason For Visit: Wrist laceration; LEFT WRIST LAC Arrival Time: 04/21/2021 17:52:39 Primary Care Physician: Sandro Chin MD Attending Physician: Leo Art PA-C Comment: Patient Education With: Address: When: Sandro Chni [address] [place] [address] [place] [id number] Business (1) Within 3 to 5 days Comments: Please follow-up with Dr. Chin, call the office schedule an appointment to be seen in 3 to 5 days for wound check, please take your Augmentin as prescribed, keep the wound clean, apply bacitracin and keep it covered, have sutures removed in 10 to 12 days from today, take efse-bzh-xevyiwv pain medication as needed, and return back [...] needed: ? Soap. ? Water. ? Hand dive superintendent. ? Bandage (dressing). ? Antibiotic ointment. ? Clean towel. How to take care of your cut Wash your hands with soap and water before touching your wound or changing your bandage. If soap and water are not available, use hand dive superintendent. If your doctor used stitches or yuridia: [...] off the skin. General instructions ? Take lesq-khu-dcipsek and prescription medicines only as told by [...] [facility] Progress Note - Nurseon 04-06 Progress Note - Nurse sutured wound irma kristopher, bacitracin applied and a bandage, pt tolerated well [Electronically Signed on: 04/21/2021 18:57 EDT] Lauren Boyer [Verified on: 04/21/2021 18:57 EDT] Lauren Boyer [facility] [place] 021 Urgent Care Record [facility] ? Urgent Care [address] [place] [address] PATIENT DISCHARGE INSTRUCTIONS Patient Information Name: MARYSOL GARDNER Age: 56 Years Date of : 1965 Reason For Visit: Wrist laceration; LEFT WRIST LAC Arrival Time: 04/21/2021 17:52:39 Primary Care Physician: Sandro Chin MD Attending Physician: Leo Art PA-C Comment: Visit Diagnosis: Diagnoses This Visit Laceration of left wrist (S61.512A) Wrist laceration ([id number]) If you received any narcotics, sedation, or [...] legal documents With: Address: When: Sandro Chin [address] [place] [address], [place] [address] Business (1) Within 3 to 5 days Comments: Please follow-up with Dr. Chin, call the office schedule an appointment to be seen in 3 to 5 days for wound check, please take your Augmentin as prescribed, keep the wound clean, apply bacitracin and keep it covered, have sutures removed in 10 to 12 days from today, take geyh-euu-qfdddya pain medication as needed, and return back to the urgent care center for any worsening symptoms, concerns, or complications. Medication Information: The exam and treatment you received today in the [facility] were for an urgent problem and are not intended as complete care. It is important for you to follow up with a doctor, nurse practitioner, or physician?s virtual office assistant for ongoing care. If your symptoms [...] so we can reach you if necessary. [facility] has provided you with a complete list of medications post discharge. Please inform your [facility]/provider of your visit and for further instruction on these medications. Any specific questions regarding your chronic medications and dosages should be discussed with your primary care physician(s) and/or pharmacist. New Medications [facility] [address], [place] [id number], [phone] amoxicillin-clavulanate (Augmentin 875 mg-125 mg oral tablet) [...] needed: ? Soap. ? Water. ? Hand dive superintendent. ? Bandage (dressing). ? Antibiotic ointment. ? Clean towel. How to take care of your cut Wash your hands with soap and water before touching your wound or changing your bandage. If soap and water ar (more content not included)... [facility] Vital Signs Date Time Vital Sign Value Performing Clinician Facility 04-04-2025 13:13-0400 Body temperature 97.7 [degF] Sandro Chin MD Work Phone: [facility] 04-04-2025 13:13-0400 Body weight 72.57 kg Sandro Chin MD Work Phone: [facility] 04-04-2025 13:13-0400 Diastolic blood pressure 85 mm[Hg] Sandro Chin MD Work Phone: [facility] 04-04-2025 13:13-0400 Heart rate 69 /min Sandro Chin MD Work Phone: [facility] 04-04-2025 13:13-0400 Respiratory rate 16 /min Sandro Chin MD Work Phone: [facility] 04-04-2025 13:13-0400 SaO2% (BldA) [Mass fraction] 98 % Sandro Chin MD Work Phone: [facility] 04-04-2025 13:13-0400 Systolic blood pressure 131 mm[Hg] Sandro Chin MD Work Phone: [facility] 03-21-2025 13:10-0400 Body weight 73.93 kg Sandro Chin MD Work Phone: [facility] 03-21-2025 13:10-0400 Diastolic blood pressure 95 mm[Hg] Sandro Chin MD Work Phone: [facility] 03-21-2025 13:10-0400 Heart rate 69 /min Sandro Chin MD Work Phone: [facility] 03-21-2025 13:10-0400 Respiratory rate 20 /min Sandro Chin MD Work Phone: [facility] 03-21-2025 13:10-0400 SaO2% (BldA) [Mass fraction] 99 % Sandro Chin MD Work Phone: [facility] 03-21-2025 13:10-0400 Systolic blood pressure 156 mm[Hg] Sandro Chin MD Work Phone: [facility] 02-01-2025 09:55-0400 Diastolic blood pressure 58 mm[Hg] Sandro Chin MD Work Phone: [facility] 02-01-2025 09:55-0400 Heart rate 60 /min Sandro Chin MD Work Phone: [facility] 02-01-2025 09:55-0400 Respiratory rate 16 /min Sandro Chin MD Work Phone: [facility] 02-01-2025 09:55-0400 SaO2% (BldA) [Mass fraction] 98 % Sandro Chin MD Work Phone: [facility] 02-01-2025 09:55-0400 Systolic blood pressure 97 mm[Hg] Sandro Chin MD Work Phone: [place] [facility] 02-01-2025 08:44-0400 Body height 162.56 cm Sandro Chin MD Work Phone: [facility] 02-01-2025 08:44-0400 Body weight 73.02 kg Sandro Chin MD Work Phone: [place] [facility] 12-21-2024 08:32-0400 Body mass index (BMI) [Ratio] 27.29 kg/m2 Constantino Martinez MD Work Phone: [facility] 12-21-2024 08:32-0400 Body weight 72.12 kg Constantino Martinez MD Work Phone: [facility] 12-21-2024 08:32-0400 Diastolic blood pressure 101 mm[Hg] Constantino Martinez MD Work Phone: [facility] 12-21-2024 08:32-0400 Heart rate 68 /min Constantino Martinez MD Work Phone: [facility] 12-21-2024 08:32-0400 Systolic blood pressure 148 mm[Hg] Constantino Martinez MD Work Phone: [facility] 12-20-2024 10:41-0400 Body height 162.56 cm Sandro Chin MD Work Phone: [facility] 12-20-2024 10:41-0400 Body mass index (BMI) [Ratio] 27.6 kg/m2 Sandro Chin MD Work Phone: [facility] 12-20-2024 10:41-0400 Body weight 73.02 kg Sandro Chin MD Work Phone: [facility] 12-20-2024 10:41-0400 Diastolic blood pressure 85 mm[Hg] Sandro Chin MD Work Phone: [facility] 12-20-2024 10:41-0400 Heart rate 64 /min Sandro Chin MD Work Phone: [facility] 12-20-2024 10:41-0400 Systolic blood pressure 121 mm[Hg] Sandro Chin MD Work Phone: [facility] 12-14-2024 09:33-0400 Body height 162.56 cm [facility] 12-14-2024 09:33-0400 Body mass index (BMI) [Ratio] 27.6 kg/m2 [facility] 12-14-2024 09:33-0400 Body weight 73.08 kg [facility] 12-14-2024 09:33-0400 Diastolic blood pressure 87 mm[Hg] [facility] 12-14-2024 09:33-0400 Heart rate 58 /min [facility] 12-14-2024 09:33-0400 Systolic blood pressure 142 mm[Hg] [facility] 09-06-2024 12:58-0500 Body height 162.56 cm Clint Jean Baptiste DO Work Phone: [facility] 09-06-2024 12:58-0500 Body mass index (BMI) [Ratio] 28.8 kg/m2 Clint Jean Baptiste DO Work Phone: [facility] 09-06-2024 12:58-0500 Body temperature 97.5 [degF] Clint Jean Baptiste DO Work Phone: [facility] 09-06-2024 12:58-0500 Body weight 76.2 kg Clint Flavias DO Work Phone: [facility] 09-06-2024 12:58-0500 Diastolic blood pressure 89 mm[Hg] Clint Monicoillis DO Work Phone: [facility] 09-06-2024 12:58-0500 Heart rate 58 /min Clint Monicoillis DO Work Phone: [facility] 09-06-2024 12:58-0500 Respiratory rate 16 /min Clint Monicoillis DO Work Phone: [facility] 09-06-2024 12:58-0500 SaO2% (BldA) [Mass fraction] 99 % Clint Marcillis DO Work Phone: [facility] 09-06-2024 12:58-0500 Systolic blood pressure 139 mm[Hg] Clint Marcillis DO Work Phone: [facility] 07-01-2024 10:59-0500 Body height 162.56 cm Clint Marcillis DO Work Phone: [facility] 07-01-2024 10:59-0500 Body mass index (BMI) [Ratio] 28.8 kg/m2 Clint Monicoillis DO Work Phone: [facility] 07-01-2024 10:59-0500 Body weight 76.2 kg Clint Marcillis DO Work Phone: [facility] 07-01-2024 10:59-0500 Diastolic blood pressure 84 mm[Hg] Clint Monicoillis DO Work Phone: [facility] 07-01-2024 10:59-0500 Heart rate 64 /min Clint Monicoillis DO Work Phone: [facility] 07-01-2024 10:59-0500 Systolic blood pressure 138 mm[Hg] Clint Monicoillis DO Work Phone: [facility] 03-25-2024 11:29-0400 Body height 162.6 cm Masha CARLIN Work Phone: [facility] 03-25-2024 11:29-0400 Body mass index (BMI) [Ratio] 27.5 kg/m2 Masha Richardson APRNANNA Work Phone: [facility] 03-25-2024 11:29-0400 Body weight 72.67 kg Masha CARLIN Work Phone: [facility] 03-25-2024 11:29-0400 Diastolic blood pressure 60 mm[Hg] Masha CARLIN Work Phone: [facility] 03-25-2024 11:29-0400 Heart rate 54 /min Masha CARLIN Work Phone: [facility] 03-25-2024 11:29-0400 Systolic blood pressure 102 mm[Hg] Masha CARLIN Work Phone: [facility] 03-15-2024 13:50-0400 Body height 162.6 cm Clint Jean Baptiste DO Work Phone: [facility] 03-15-2024 13:50-0400 Body mass index (BMI) [Ratio] 27.46 kg/m2 Clint Jean Baptiste DO Work Phone: [facility] 03-15-2024 13:50-0400 Body weight 72.58 kg Clint Jean Baptiste DO Work Phone: [facility] 03-03-2024 10:26-0400 Body height 162.6 cm Clint Jean Baptiste DO Work Phone: [facility] 03-03-2024 10:26-0400 Body mass index (BMI) [Ratio] 27.46 kg/m2 Clint Jean Baptiste DO Work Phone: [facility] 03-03-2024 10:26-0400 Body weight 72.58 kg Clint Jean Baptiste DO Work Phone: [phone] 01-19-2024 11:22-0400 Body height 162.56 cm DO Clint Alejandros Work Phone: [facility] 01-19-2024 11:22-0400 Body mass index (BMI) [Ratio] 28.8 kg/m2 DO Clint Flavias Work Phone: [facility] 01-19-2024 11:22-0400 Body temperature 98 [degF] DO Clint Alejandros Work Phone: [facility] 01-19-2024 11:22-0400 Body weight 76.2 kg DO Clint Flavias Work Phone: [facility] 01-19-2024 11:22-0400 Diastolic blood pressure 91 mm[Hg] DO Clint Alejandros Work Phone: [facility] 01-19-2024 11:22-0400 Heart rate 52 /min DO Clint Alejandros Work Phone: [facility] 01-19-2024 11:22-0400 Respiratory rate 18 /min DO Clint Alejandros Work Phone: [facility] 01-19-2024 11:22-0400 SaO2% (BldA) [Mass fraction] 99 % DO Clint Alejandros Work Phone: [facility] 01-19-2024 11:22-0400 Systolic blood pressure 138 mm[Hg] DO Clint Alejandros Work Phone: [facility] 11-17-2023 09:37-0400 Body height 162.56 cm DO Clint Alejandros Work Phone: [facility] 11-17-2023 09:37-0400 Body mass index (BMI) [Ratio] 28.8 kg/m2 DO Clint Flavias Work Phone: [facility] 11-17-2023 09:37-0400 Body weight 76.2 kg DO Clint Alejandros Work Phone: [facility] 11-17-2023 09:37-0400 Diastolic blood pressure 88 mm[Hg] DO Clint Monicoillis Work Phone: [facility] 11-17-2023 09:37-0400 Heart rate 60 /min DO Clint Grillis Work Phone: [facility] 11-17-2023 09:37-0400 Systolic blood pressure 136 mm[Hg] DO Clint Monicoillis Work Phone: [facility] 09-26-2023 10:34-0400 Body height 162.56 cm DO Clint Monicoillis Work Phone: [facility] 09-26-2023 10:34-0400 Body mass index (BMI) [Ratio] 28.8 kg/m2 DO Clint Monicoillis Work Phone: [facility] 09-26-2023 10:34-0400 Body weight 76.2 kg DO Clint Flavias Work Phone: [facility] 09-26-2023 10:34-0400 Diastolic blood pressure 82 mm[Hg] DO Clint Monicoillis Work Phone: [facility] 09-26-2023 10:34-0400 Heart rate 63 /min DO Clint Monicoillis Work Phone: [facility] 09-26-2023 10:34-0400 Respiratory rate 18 /min DO Clint Monicoillis Work Phone: [facility] 09-26-2023 10:34-0400 SaO2% (BldA) [Mass fraction] 97 % DO Clint Monicoillis Work Phone: [facility] 09-26-2023 10:34-0400 Systolic blood pressure 131 mm[Hg] DO Clint Monicoillis Work Phone: [facility] 06-25-2023 11:13-0500 Diastolic blood pressure 79 mm[Hg] DO Clint Grillis Work Phone: [facility] 06-25-2023 11:13-0500 Heart rate 78 /min DO Clint Jean Baptiste Work Phone: [facility] 06-25-2023 11:13-0500 Respiratory rate 20 /min DO Clint Jean Baptiste Work Phone: [facility] 06-25-2023 11:13-0500 SaO2% (BldA) [Mass fraction] 98 % DO Clint Jean Baptiste Work Phone: [facility] 06-25-2023 11:13-0500 Systolic blood pressure 142 mm[Hg] DO Clint Jean Baptiste Work Phone: [facility] 05-19-2023 11:15-0500 Body height 162.56 cm Sandro Chin Other [employer] Other 05-19-2023 11:15-0500 Body mass index (BMI) [Ratio] 28.56 kg/m2 Sandro Chin Other [employer] Other 05-19-2023 11:15-0500 Body weight 75.48 kg Sandro Chin Other [employer] Other 05-19-2023 11:15-0500 Diastolic blood pressure 75 mm[Hg] Sandro Chin Other [employer] Other 05-19-2023 11:15-0500 Systolic blood pressure 109 mm[Hg] Sandro Chin Other [employer] Other 03-24-2023 10:41-0400 Body temperature 97.4 [degF] DO Clint Jean Baptiste Work Phone: [facility] 09-02-2022 08:36-0500 Body temperature 98 [degF] DO Isaías Adamstanleyicz II Work Phone: [facility] 09-02-2022 08:36-0500 Body weight 76.6 kg DO Isaías Adamowicz II Work Phone: [facility] 09-02-2022 08:36-0500 Diastolic blood pressure 90 mm[Hg] DO Isaías Adamowicz II Work Phone: [facility] 09-02-2022 08:36-0500 Heart rate 65 /min DO Isaías Adamowicz II Work Phone: [facility] 09-02-2022 08:36-0500 Respiratory rate 20 /min DO Isaías Adamowicz II Work Phone: [facility] 09-02-2022 08:36-0500 SaO2% (BldA) [Mass fraction] 99 % DO Isaías Adamowicz II Work Phone: [facility] 09-02-2022 08:36-0500 Systolic blood pressure 147 mm[Hg] DO Isaías Adamowicz II Work Phone: [facility] 08-19-2022 08:43-0500 Body temperature 98.1 [degF] DO Isaías Adamowicz II Work Phone: [facility] 08-19-2022 08:43-0500 Body weight 74.9 kg DO Isaías Adamowicz II Work Phone: [facility] 08-19-2022 08:43-0500 Diastolic blood pressure 90 mm[Hg] DO Isaías Adamowicz II Work Phone: [facility] 08-19-2022 08:43-0500 Heart rate 60 /min DO Isaías Adamowicz II Work Phone: [facility] 08-19-2022 08:43-0500 Respiratory rate 20 /min DO Isaías Adamowicz II Work Phone: [facility] 08-19-2022 08:43-0500 SaO2% (BldA) [Mass fraction] 100 % DO Isaías Adamowicz II Work Phone: [facility] 08-19-2022 08:43-0500 Systolic blood pressure 143 mm[Hg] DO Isaías Adamowicz II Work Phone: [facility] 07-22-2022 09:43-0500 Body temperature 97.8 [degF] DO Isaías Adamowicz II Work Phone: [facility] 07-22-2022 09:43-0500 Body weight 75.7 kg DO Isaías Adamowicz II Work Phone: [facility] 07-22-2022 09:43-0500 Diastolic blood pressure 92 mm[Hg] DO Isaías Adamowicz II Work Phone: [facility] 07-22-2022 09:43-0500 Heart rate 67 /min DO Isaías Adamowicz II Work Phone: [facility] 07-22-2022 09:43-0500 Respiratory rate 16 /min DO Isaías Adamowicz II Work Phone: [facility] 07-22-2022 09:43-0500 SaO2% (BldA) [Mass fraction] 98 % DO Isaías Adamowicz II Work Phone: [facility] 07-22-2022 09:43-0500 Systolic blood pressure 149 mm[Hg] DO Isaías Adamowicz II Work Phone: [facility] 06-26-2022 12:23-0500 Body temperature 97.9 [degF] DO Clint Grillis Work Phone: [facility] 06-26-2022 12:23-0500 Diastolic blood pressure 79 mm[Hg] DO Clint Marcillis Work Phone: [facility] 06-26-2022 12:23-0500 Heart rate 60 /min DO Clint Grillis Work Phone: [facility] 06-26-2022 12:23-0500 Respiratory rate 18 /min DO Clint Alejandros Work Phone: [facility] 06-26-2022 12:23-0500 SaO2% (BldA) [Mass fraction] 97 % DO Clint Grillis Work Phone: [facility] 06-26-2022 12:23-0500 Systolic blood pressure 132 mm[Hg] DO Clint Grillis Work Phone: [facility] 06-24-2022 10:02-0500 Body weight 75 kg DO Clint Grillis Work Phone: [facility] 06-24-2022 09:08-0500 Body temperature 98 [degF] DO Clint Grillis Work Phone: [facility] 06-24-2022 09:08-0500 Body weight 75 kg DO Clint Grillis Work Phone: [facility] 06-24-2022 09:08-0500 Diastolic blood pressure 93 mm[Hg] DO Clint Grillis Work Phone: [facility] 06-24-2022 09:08-0500 Heart rate 61 /min DO Clint Grillis Work Phone: [facility] 06-24-2022 09:08-0500 Respiratory rate 16 /min DO Clint Monicoillis Work Phone: [facility] 06-24-2022 09:08-0500 SaO2% (BldA) [Mass fraction] 98 % DO Clint Monicoillis Work Phone: [facility] 06-24-2022 09:08-0500 Systolic blood pressure 137 mm[Hg] DO Clint Grillis Work Phone: [facility] 06-03-2022 08:08-0500 Body weight 74.1 kg DO Clint Grillis Work Phone: [facility] 06-03-2022 08:08-0500 Diastolic blood pressure 90 mm[Hg] DO Clint Grillis Work Phone: [facility] 06-03-2022 08:08-0500 Heart rate 56 /min DO Clint Jean Baptiste Work Phone: [facility] 06-03-2022 08:08-0500 Respiratory rate 20 /min DO Clint Jean Baptiste Work Phone: [facility] 06-03-2022 08:08-0500 SaO2% (BldA) [Mass fraction] 98 % DO Clint Jean Baptiste Work Phone: [facility] 06-03-2022 08:08-0500 Systolic blood pressure 137 mm[Hg] DO Clint Jean Baptiste Work Phone: [facility] 05-03-2022 14:40-0400 Body height 162.56 cm DO Clint Jean Baptiste Work Phone: [facility] Encounters Encounter Date Encounter Type Care Provider Facility Start: 04-04-2025 End: 04-04-2025 Patient encounter procedure Isaías Jordan II [facility] Work Phone: Start: 04-04-2025 End: 04-04-2025 ambulatory Sandro Chin MD Work Phone: [facility] [facility] Work Phone: Start: 03-30-2025 End: 03-30-2025 External Result Encounter Carlyn Betancur Johnny MINE EXPLORATION ENGINEER Work Phone: [facility] Department Unsolicited Start: 03-30-2025 End: 03-30-2025 External Result Encounter Carlyn Betancur Johnny MINE EXPLORATION ENGINEER Work Phone: [facility] External Department Unsolicited Start: 03-21-2025 Registered Recurring Carlyn Turner [facility] Work Phone: Start: 03-21-2025 End: 03-21-2025 ambulatory Sandro Chin MD Work Phone: [facility] Work Phone: Start: 03-21-2025 End: 03-21-2025 Patient encounter procedure Isaías Jordan II DO -[facility] Work Phone: Start: 03-17-2025 Non-patient / Non-visit Dionicio Jordan II DO -[facility] Work Phone: Start: 02-01-2025 End: 02-01-2025 ambulatory Sandro Chin Facility:[facility] Start: 02-01-2025 Non-patient / Non-visit Roz Borrego DO [facility] Work Phone: Start: 12-25-2024 Non-patient / Non-visit Sandro mendoza MD -[facility] Work Phone: Start: 12-21-2024 End: 12-21-2024 Bamboo flowsheet Constantino Martinez MD Work Phone: [facility] Start: 12-21-2024 End: 12-21-2024 April flowsbrandie Martinez MD Work Phone: [facility] Start: 12-21-2024 End: 12-21-2024 Office outpatient new 30 minutes Constantino Martinez MD Work Phone: [facility] Comment on above: Globus sensation (Pr imary Dx); LPRD (laryngopharyngeal reflux disease) Start: 12-21-2024 End: 12-21-2024 ambulatory CONSTANTINO MARTINEZ Not Available Start: 12-20-2024 End: 12-20-2024 ambulatory Sandro Chin Facility:[facility] Start: 12-20-2024 End: 12-20-2024 Departed Referred Sandro Chin MD -Lab [facility] Work Phone: Start: 12-20-2024 End: 12-20-2024 Patient encounter procedure Sandro Chin MD -[facility] Work Phone: Start: 12-20-2024 End: 12-20-2024 Patient encounter status Sandro Chin MD [facility] Start: 12-14-2024 End: 12-14-2024 ambulatory [facility] Work Phone: Start: 12-14-2024 End: 12-14-2024 Patient encounter procedure [facility] Work Phone: Start: 09-06-2024 Registered Recurring Clint Salena uma DO Work Phone: [facility] Work Phone: Start: 09-06-2024 End: 09-06-2024 ambulatory Clint Jean Baptiste DO Work Phone: [facility] Work Phone: Start: 09-06-2024 End: 09-06-2024 Patient encounter procedure Clint Jean Baptiste DO Work Phone: [facility] Work Phone: Start: 08-24-2024 Non-patient / Non-visit Leroy Jean Baptiste DO Work Phone: [facility] Work Phone: Start: 07-01-2024 End: 07-01-2024 Patient encounter procedure Clint Jean Baptiste DO Work Phone: [facility] Work Phone: Start: 03-25-2024 End: 03-25-2024 ambulatory [facility] Start: 03-25-2024 End: 03-25-2024 Postop follow up visit related to original px [facility] 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: [facility] Comment on above: History of removal o f Port-a-Cath (Primary Dx); History of colon cancer Start: 03-15-2024 End: 03-15-2024 ambulatory CLINT Ernst PAPA [facility] Start: 03-15-2024 End: 03-15-2024 Patient encounter procedure Clint Jean Baptiste DO Work Phone: [facility] Comment on above: History of colon can cer (Primary Dx) Start: 03-03-2024 End: 03-03-2024 ambulatory CLINT JEAN BAPTISTE [facility] Start: 03-03-2024 End: 03-03-2024 Office outpatient visit 15 minutes Clint Jean Baptiste DO Work Phone: [facility] General Surgery Comment on above: History of colon can cer (Primary Dx) Start: 01-19-2024 End: 01-19-2024 ambulatory DO Clint Jean Baptiste Work Phone: [facility] Work Phone: Start: 01-19-2024 End: 01-19-2024 Patient encounter procedure DO Clint Jean Baptiste Work Phone: [facility] Work Phone: Start: 01-19-2024 Registered Recurring DO Leroy Jean Baptiste Work Phone: [facility] Work Phone: Start: 01-15-2024 Non-patient / Non-visit DO Sherwin Jean Baptiste Work Phone: [facility] Work Phone: Start: 11-26-2023 Non-patient / Non-visit DO Sherwin Jean Baptiste Work Phone: [facility] Work Phone: Start: 11-17-2023 Patient encounter status DO Araseli Jean Baptiste Work Phone: [facility] Start: 11-17-2023 End: 11-17-2023 ambulatory DO Clint Jean Baptiste Work Phone: [facility] Work Phone: Start: 11-17-2023 End: 11-17-2023 Patient encounter procedure DO Clint Jean Baptiste Work Phone: [facility] Work Phone: Start: 09-26-2023 Registered Recurring DO Leroy Jean Baptiste Work Phone: [facility] Work Phone: Start: 09-26-2023 End: 09-26-2023 ambulatory DO Clint Jean Baptiste Work Phone: [facility] Work Phone: Start: 09-26-2023 End: 09-26-2023 Patient encounter procedure DO Clint Jean Baptiste Work Phone: [facility] Phys[facility] Work Phone: Start: 09-18-2023 Non-patient / Non-visit DO Sherwin Alejandroignacio Work Phone: [facility] Work Phone: Start: 05-19-2023 End: 05-19-2023 ambulatory Sandro Chin Other [facility] [employer] Other Start: 05-19-2023 Office outpatient vi sit 15 minutes Sandro Chin [facility] Start: 11-16-2022 End: 11-17-2022 ambulatory ISAÍAS JORDAN Facility:[facility] Start: 11-02-2022 End: 11-03-2022 ambulatory ISAÍAS JORDAN Facility:[facility] Start: 10-19-2022 End: 10-20-[address] SANDRO CHIN Facility:[facility] Start: 09-14-2022 End: 09-15-2022 ambulatory ISAÍAS JORDAN Facility:[facility] Start: 09-02-2022 End: 09-02-2022 ambulatory NON STAFF [facility] Work Phone: Start: 09-02-2022 End: 09-02-2022 Registered Recurring DO Isaías Jordan II Work Phone: [facility] Work Phone: Start: 09-01-2022 End: 09-01-[address] SANDRO CHIN Facility:[facility] Start: 08-31-2022 End: 09-01-2022 ambulatory ISAÍAS JORDAN Facility:[facility] Start: 08-19-2022 End: 08-19-2022 ambulatory NON STAFF [facility] Work Phone: Start: 08-19-2022 End: 08-19-2022 Registered Recurring DO Isaías Jordan II Work Phone: [facility] Work Phone: Start: 08-16-2022 End: 08-17-2022 ambulatory ISAÍAS JORDAN Facility:[facility] Start: 08-03-2022 End: 08-04-2022 ambulatory ISAÍAS JORDAN Facility:[facility] Start: 07-22-2022 End: 07-22-2022 ambulatory NON STAFF [facility] Work Phone: Start: 07-22-2022 End: 07-22-2022 Registered Recurring DO Isaías Jordan II Work Phone: [facility] Work Phone: Start: 07-20-2022 End: 07-21-2022 ambulatory ISAÍAS JORDAN Facility:[facility] Start: 07-06-2022 End: 07-06-2022 ambulatory DO Clint Jean Baptiste Work Phone: [facility] Work Phone: Start: 07-06-2022 End: 07-06-2022 Departed Referred DO Clint Jean Baptiste Work Phone: [facility] [place] Work Phone: Start: 06-26-2022 Registered Recurring DO Leroy Jean Baptiste Work Phone: [facility] Work Phone: Start: 06-24-2022 End: 06-24-2022 ambulatory DO Clint Alejandros Work Phone: [facility] Work Phone: Start: 06-24-2022 End: 06-24-2022 Registered Recurring DO Clint [facility]jandros [facility] Start: 06-24-2022 End: 06-24-2022 ambulatory DO Clint Jean Baptiste Work Phone: [facility] Work Phone: Start: 06-24-2022 End: 06-24-2022 Registered Recurring DO Clint Jean Baptiste [facility] [place] Start: 06-22-2022 End: 06-23-2022 ambulatory ISAÍAS JORDAN Facility:[facility] Start: 06-08-2022 End: 06-09-2022 ambulatory ISAÍAS Seals CHIQUISISAIAS Facility:[facility] Start: 06-03-2022 End: 06-03-2022 ambulatory DO Clint Jean Baptiste Work Phone: [facility] Work Phone: Start: 06-03-2022 End: 06-03-2022 Registered Recurring DO Clint Jean Baptiste [facility] Start: 06-01-2022 End: 06-02-2022 ambulatory ISAÍAS Seals CHIQUISISAIAS Facility:[facility] Start: 05-22-2022 End: 05-23-2022 ambulatory ISAÍAS JORDAN Facility:[facility] Start: 05-21-2022 Encounter for preprocedural laboratory examination DR CLINT JEAN BAPTISTE . [facility] Start: 05-18-2022 End: 05-19-[address] [...] examination DR CLINT JEAN BAPTISTE . [facility] Start: 04-04-2022 Encounter for preprocedural laboratory examination DR CLINT JEAN BAPTISTE . [facility] Start: 04-02-2022 End: [address] [...] Date Procedure Procedure Detail Performing Clinician Start: 03-30-2025 GLUCOSE POCT GLUCOMETERS Carlyn Turner NP Work Phone: Start: 03-17-2025 Carcinoembryonic antigen cea Sandro jaimes MD Work Phone: Comment on above: Nonsmokers <3.9 Smokers <5.6[employer] Electrochemiluminescence Immunoassay(ECLIA)Values obtained with different assay methods or kitscannot be used interchangeably. Results cannot beinterpreted as absolute evidence of the presence orabsence of malignant disease.Performed at: [facility] [address] [id number] Director: Edilson Saunders PhD, Phone: [phone] Start: 08-24-2024 Carcinoembryonic antigen cea Clint sullivan DO Work Phone: Comment on above: Nonsmokers <3.9 Smokers <5.6[employer] Electrochemiluminescence Immunoassay(ECLIA)Values obtained with different assay methods or kitscannot be used interchangeably. Results cannot beinterpreted as absolute evidence of the presence orabsence of malignant disease.Performed at: [facility] [address] [id number] Director: Edilson Saunders PhD, Phone: [phone] Start: 01-15-2024 Carcinoembryonic antigen cea DO Clint Jean Baptiste Work Phone: Comment on above: Nonsmokers <3.9 Smokers <5.6[employer] Electrochemiluminescence Immunoassay(ECLIA)Values obtained with different assay methods or kitscannot be used interchangeably. Results cannot beinterpreted as absolute evidence of the presence orabsence of malignant disease.Performed at: [facility] [id number] Director: Edilson Saunders PhD, Phone: [phone] Start: 09-18-2023 Carcinoembryonic antigen cea DO Clint [place] Work Phone: Comment on above: Nonsmokers <3.9 Smokers <5.6[employer] Electrochemiluminescence Immunoassay(ECLIA)Values obtained with different assay methods or kitscannot be used interchangeably. Results cannot beinterpreted as absolute evidence of the presence orabsence of malignant disease.Performed at: [facility] [id number] Director: Edilson Saunders PhD, Phone: [phone] Start: 05-07-2023 Colonoscopy Clint Jean Baptiste DO Work Phone: Start: 04-10-2022 Resection of Sigmoid Colon, Open Approach ISAÍAS JORDAN Plan of Treatment Date Care Activity Detail Author Start: 05-07-2033 Screening for malign ant neoplasm of colon [facility] Start: 05-07-2026 Screening for malign ant neoplasm of colon Colonoscopy [facility] Start: 04-04-2025 Patient referral [facility] Work Phone: Start: 03-21-2025 Patient referral [facility] Work Phone: Start: 03-15-2025 Adult BMI Screening Adult BMI Screen ing [facility] Start: 03-15-2025 Tobacco Screening Tobacco Screening [facility] Start: 03-07-2025 Influenza vaccination Influenz a Vaccine (#1) [facility] Start: 03-03-2025 Adult BMI Screening Adult BMI Screen ing [facility] Start: 03-03-2025 Tobacco Screening Tobacco Screening [facility] Start: 02-01-2025 End: 02-01-2025 [facility] Start: 12-21-2024 End: 12-21-2024 Patient encounter procedure 12/21/2024 8:40 AM EDT Office Visit [facility] [address] [facility] [address] [place] [address] Constantino Martinez MD [address] [facility] [address] [place] [address] Arrived [facility] Comment on above: Arrived Start: 12-14-2024 Patient referral [facility] Work Phone: Start: 03-25-2024 End: 03-25-2024 Patient encounter procedure 03/25/2024 11:00 AM EDT Office Visit [facility] [address] [place] [id number] Masha Richardson, MEAT CUTTING TEACHER-[facility] [address] [place], [place] [id number] [facility] Start: 03-15-2024 End: 03-15-2024 Patient encounter procedure 03/15/2024 1:30 PM EDT Office Visit [facility] [address] [place] [id number] Clint Jean Baptiste DO [address] [place], [place] [id number] [facility] Start: 03-07-2024 COVID-19 Vaccine ( season) COVID-19 Vaccine ( season) [facility] Start: 03-07-2024 Influenza vaccination Influenza Vacc ine [facility] Start: 01-19-2024 Patient referral [facility] Work Phone: Start: 11-17-2023 Patient referral [facility] Work Phone: Start: 03-07-2023 COVID-19 Vaccine ( season) COVID-19 Vaccine ( season) [facility] Start: 11-18-2022 [facility] Start: 11-18-2022 [facility] Start: 11-04-2022 [facility] Start: 10-21-2022 [facility] Start: 10-21-2022 [facility] Start: 10-21-2022 [facility] Start: 09-23-2022 [facility] Start: 09-23-2022 [facility] Start: 09-16-2022 [facility] Start: 09-02-2022 [facility] Start: 08-19-2022 [facility] Start: 08-19-2022 [facility] Start: 08-05-2022 [facility] Start: 07-22-2022 [facility] Start: 07-09-2022 [facility] Start: 06-26-2022 [facility] Start: 06-24-2022 [facility] Start: 06-10-2022 Comprehensive metabo lic 2000 panel - Serum or Plasma [facility] Start: 06-10-2022 Magnesium measurement [facility] Start: 06-10-2022 [facility] Start: 06-10-2022 [facility] Start: 06-03-2022 [facility] Start: 05-27-2022 [facility] Start: 2006 Screening for malign ant neoplasm of breast Mammogram [facility] Start: 1996 Screening for malign ant neoplasm of cervix [facility] Start: 1987 Screening for malign ant neoplasm of cervix Pap Smear [facility] Start: 1985 Administration of va ricella zoster vaccine Zoster (Shingles) Vaccine (1 of 2) [facility] Start: 1985 DTaP,Tdap and Td Vac cines (1 - Tdap) DTaP,Tdap and Td Vaccines (1 - Tdap) [facility] Start: 1984 Adult BMI Follow Up Plan Adult BMI Follow Up Plan [facility] Start: 1978 Depression Screening Depression Scre ening [facility] Start: 1966 Screening for malign ant neoplasm of colon [facility] Alanine aminotransfe rase [Enzymatic activity/volume] in Serum or Plasma by No addition of P-5'-P [facility] Work Phone: Alanine aminotransfe rase [Enzymatic activity/volume] in Serum or Plasma by No addition of P-5'-P [facility] Albumin [Mass/volume ] in Serum or Plasma [facility] Work Phone: Albumin [Mass/volume ] in Serum or Plasma [facility] Albumin/Globulin ratio [facility] Work Phone: Albumin/Globulin ratio [facility] Alkaline phosphatase [Enzymatic activity/volume] in Serum or Plasma [facility] Work Phone: Alkaline phosphatase [Enzymatic activity/volume] in Serum or Plasma [facility] Anion gap measurement [facility] Work Phone: Anion gap measurement [facility] Aspartate aminotrans ferase [Enzymatic activity/volume] in Serum or Plasma [facility] Work Phone: Aspartate aminotrans ferase [Enzymatic activity/volume] in Serum or Plasma [facility] Basophil count [facility] Work Phone: Basophil percent differential count [facility] Work Phone: Bilirubin.total [Mass/volume] in Serum or Plasma [facility] Work Phone: Bilirubin.total [Mass/volume] in Serum or Plasma [facility] Calcium [Mass/volume ] in Serum or Plasma [facility] Work Phone: Calcium [Mass/volume ] in Serum or Plasma [facility] Carbon dioxide, tota l [Moles/volume] in Serum or Plasma [facility] Work Phone: Carbon dioxide, tota l [Moles/volume] in Serum or Plasma [facility] Carcinoembryonic Ag [Mass/volume] in Serum or Plasma [facility] Chloride [Moles/volu me] in Serum or Plasma [facility] Work Phone: Chloride [Moles/volu me] in Serum or Plasma [facility] Choriogonadotropin ( test) [Presence] in Urine [facility] Comprehensive metabo lic 1999 panel - Serum or Plasma [facility] Comprehensive metabo lic 1999 panel - Serum or Plasma [facility] Comprehensive metabo lic 1999 panel - Serum or Plasma [facility] Comprehensive metabo lic 1999 panel - Serum or Plasma [facility] Comprehensive metabo lic 1999 panel - Serum or Plasma [facility] Comprehensive metabo lic 1999 panel - Serum or Plasma [facility] Comprehensive metabo lic 1999 panel - Serum or Plasma [facility] Comprehensive metabo lic 1999 panel - Serum or Plasma [facility] Comprehensive metabo lic 1999 panel - Serum or Plasma [facility] Comprehensive metabo lic 1999 panel - Serum or Plasma [facility] Comprehensive metabo lic 1999 panel - Serum or Plasma [facility] Comprehensive metabo lic 1999 panel - Serum or Plasma [facility] Comprehensive metabo lic 1999 panel - Serum or Plasma [facility] Comprehensive metabo lic 1999 panel - Serum or Plasma [facility] Comprehensive metabo lic 1999 panel - Serum or Plasma [facility] Creatinine and Glome rular filtration rate.predicted panel - Serum, Plasma or Blood [facility] Work Phone: Creatinine and Glome rular filtration rate.predicted panel - Serum, Plasma or Blood [facility] CT Abdomen and Pelvi s W contrast IV [facility] CT Abdomen and Pelvi s W contrast IV [facility] CT Abdomen and Pelvi s W contrast IV [facility] CT Abdomen and Pelvi s W contrast IV [facility] CT Abdomen and Pelvi s W contrast IV [facility] CT Abdomen and Pelvi s W contrast IV [facility] CT Chest W contrast IV [facility] CT Chest W contrast IV [facility] CT Chest W contrast IV [facility] CT Chest W contrast IV [facility] CT Chest W contrast IV [facility] CT Chest W contrast IV [facility] Eosinophil percent differential count [facility] Work Phone: Eosinophils [#/volum e] in Blood [facility] Work Phone: Erythrocyte mean cor puscular volume determination [facility] Work Phone: Erythrocytes [#/volu me] in Blood [facility] Work Phone: Globulin [Mass/volum e] in Serum [facility] Work Phone: Globulin [Mass/volum e] in Serum [facility] Glucose [Mass/volume ] in Serum or Plasma [facility] Work Phone: Glucose [Mass/volume ] in Serum or Plasma [facility] Hematocrit [Volume F raction] of Blood [facility] Work Phone: Hemoglobin [Mass/vol ume] in Blood [facility] Work Phone: Hemoglobin distribut ion, width determination [facility] Work Phone: Leukocytes [#/volume ] in Blood [facility] Work Phone: Lymphocyte count [facility] Work Phone: Lymphocyte percent differential count [facility] Work Phone: Magnesium measurement [facility] Magnesium measurement [facility] Magnesium measurement [facility] Mean corpuscular hem oglobin concentration determination [facility] Work Phone: Mean corpuscular hem oglobin determination [facility] Work Phone: Measurement of renal function [facility] Work Phone: Measurement of renal function [facility] MG Breast - bilatera l Screening [facility] Monocyte count [facility] Work Phone: Monocyte percent differential count [facility] Work Phone: Neutrophil count [facility] Work Phone: Neutrophil percent differential count [facility] Work Phone: Patient Education [facility] Work Phone: Patient referral [facility] Work Phone: Platelet mean volume determination [facility] Work Phone: Platelets [#/volume] in Blood [facility] Work Phone: Potassium [Moles/vol ume] in Serum or Plasma [facility] Work Phone: Potassium [Moles/vol ume] in Serum or Plasma [facility] Protein [Mass/volume ] in Serum or Plasma [facility] Work Phone: Protein [Mass/volume ] in Serum or Plasma [facility] Sodium [Moles/volume ] in Serum or Plasma [facility] Work Phone: Sodium [Moles/volume ] in Serum or Plasma [facility] Urea nitrogen [Mass/ volume] in Serum or Plasma [facility] Work Phone: Urea nitrogen [Mass/ volume] in Serum or Plasma [facility] Immunizations Immunization Date Immunization Notes Care Provider Fa cilithomas 05-18-2024 influenza virus vacc ine, unspecified formulation 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 2022 Unknown KAYLEY MORGAN ACCE SS (PPO) [id number] 2022-Present [phone] [id number] [place] [id number] 2022 Unknown [id number] 2019 Unknown [id number] 1966 Unknown [id number] 2.16840.1.775241.3.579.2. 593 1966 Unknown [id number] 2.16840.1.567896.3.579.2. 593 1966 Unknown [id number] 2.16.840.1.689927.3.579.2. 593 1966 Unknown [id number] 2.16.840.1.341197.3.579.2. 59 1966 Unknown [id number] 2.16840.1.644170.3.579.2. 593 1966 Unknown [id number] 2.16.840.1.464349.3.579.2. 593 1966 Unknown [id number] 2.16.840.1.733248.3.579.2. 593 1966 Unknown [id number] 2.16.840.1.607134.3.579.2. 593 1966 Unknown [id number] 2.16.840.1.223291.3.579.2. 593 1966 Unknown [id number] 2.16.840.1.810432.3.579.2. 59 1966 Unknown [id number] 2.16.840.1.507136.3.579.2. 593 1966 Unknown [id number] 2.16.840.1.661320.3.579.2. 59 1966 Unknown [id number] 2.16.840.1.683467.3.579.2. 593 1966 Unknown [id number] 2.16.840.1.077798.3.579.2. 59 1966 Unknown [id number] 2.16.840.1.975742.3.579.2. 593 1966 Unknown [id number] 2.16.840.1.687692.3.579.2. 59 1966 Unknown [id number] 2.16.840.1.677193.3.579.2. 593 1966 Unknown [id number] 2.16.840.1.785039.3.579.2. 593 1966 Unknown [id number] 2.16.840.1.602461.3.579.2. 593 1966 Unknown [id number] 2.16.840.1.788512.3.579.2. 59 1966 Unknown [id number] 2.16.840.1.120623.3.579.2. 593 1966 Unknown [id number] 2.16.840.1.514196.3.579.2. 59 1966 Unknown [id number] 2.16.840.1.798645.3.579.2. 593 1966 Unknown [id number] 2.16.840.1.022444.3.579.2. 593 1966 Unknown [id number] 2.16.840.1.503150.3.579.2. 1286 1966 Unknown [id number] 1965 Unknown [id number] 1965 Unknown [id number] Unknown [id number] Unknown [id number] Unknown [id number] 531 Unknown [id number] 531 Social History Date Type Detail Facility Start: 05-27-2022 End: 02-01-2025 Tobacco smoking status [facility] Never smoked tobacco (finding) [facility] Start: 1965 Sex Assigned At Female [facility] Start: 03-03-2024 End: 12-21-2024 Sex Assigned At [employer] Other Start: 04-19-2022 Tobacco smoking status COIS Ex-smoker [facility] History of tobacco use Current smoker [facility] History of tobacco use Cigarette Smoker [facility] Start: 04-19-2022 End: 12-21-2024 Tobacco use and exposure Smokeless tobacco non-user [facility] Start: 03-03-2024 End: 12-21-2024 Alcoholic beverage intake Current drinker of alcohol (finding) [facility] Start: 03-03-2024 End: 12-21-2024 History of Social function [facility] Within the past 12 months we worried whether our food would run out before we got money to buy more. Never True [facility] Start: 04-19-2022 Tobacco Comment smoked when kathy flores was 18 for 6 months [facility] Start: 05-01-2023 Alcohol Comment occasionally [facility] [employer] [facility] [facility] Start: 1965 Sex assigned at Not on file [facility] Start: 09-06-2024 End: 12-14-2024 Sex Female (finding) [facility] Tobacco smoking status NHIS Tobacco smoking consumption unknown [facility] Start: 12-21-2024 Alcohol Comment occ [facility] NEGATED: Highlighted row N [facility] Goals Date Patient Goal Desired Activity /State [...] gland hypertrophy 12/20/2024 Situational anxiety 12/20/2024 bleeding ([facility]) 05/15/2022 Resolved Ambulatory Problems Diagnosis Date [...] if no improvement. documented in this encounter [facility] 12-14-2024 Chief complaint+R dada for visit Narrative Sore Throat/ENT Referral December 14, 2024 9:27am Wellness/PAP December 20, 2024 10:3 7am Z01.419 December 20, 2024 10:4 5am EGD FOR GERD, HX OF COLON CANCER February 012024 8:20am Reason for Visit Admit Date GERD (gastroesophageal reflux disease) J une 2024 9:27am Pharyngitis, chronic December 14, 2024 9:2 7am Globus sensation December 20, 2024 10:3 7am Screening mammogram for breast cancer Ju ne 2024 10:37am Wellness examination December 20, 2024 10: 37am [facility] Work Phone: 1(153) 685-276006-10-2025 Evaluation note* Diagnosis Onset Date Resolution Status Admit Date GERD (gastroesophageal reflu x disease) acute December 14, 2024 9:27am Pharyngitis, chronic acute December 14, 2024 9:27am Globus sensation acute December 10:37am Screening mammogram for binh st cancer acute December 20, 2024 10:37am Wellness examination acute December 20, 2024 10:37am [facility] Work Phone: [phone] Evaluation note* Diagnosis Onset Date Resolution Status Admit Date Osteoarthritis acute June 072023 10:57am Situational anxiety acute Decem 2023 10:57am Abnormal LFTs acute September 06, 2024 1:19pm Chemotherapy-induced periphe ral neuropathy acute September 06, 2024 1:19pm Colon cancer acute September 06, 2 025 1:19pm Encounter for chemotherapy management acute September 06, 2024 1:19pm [facility] Work Phone: [phone]) 749-903309-19-2024 History of Present illness Narrative* Masha Richardson, OLIVIA-JHON - 03/25/2024 11:00 AM EDT Subjective Marysol [...] of removal of Port-a-Cath [Z98.890] RAEGAN TAYLOR [facility] [place] This note was created with the assistance of a speech recognition program. While intending to generate a timely document that accurately reflects the content of the visit, no guarantee can be provided that every grammatical or spelling mistake has been or will be identified or corrected. Thank you for your understanding. RAEGAN Taylor 03/25/24 1143 [facility] History of Present illness Narrative* Clint Jean [...] weeks for suture removal. [facility] History of Present illness Narrative* Clint Jean Baptiste DO - 03/03/2024 10:15 AM EDT Images from the original note were not included. [facility] GENER[facility] SUR[facility] [address] [facility] [id number] Progress NOTE CHIEF COMPLAINT Chief Complaint Patient [...] by me April 10, 2022 at the [facility]. Her last colonoscopy was in May, and was normal. 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 MEDICATION Current Outpatient Medications: brimonidine (ALPHAGAN) [...] by mouth daily., Disp: , Rfl: omega 7-awv-dsz-fish oil (Fish OiL) 300-1,000 mg capsule, Take by mouth., Disp: , Rfl: omeprazole (PriLOSEC) 20 mg capsule, PATIENT REPORTS NEEDED , Disp: , Rfl: ALLERGY Allergies Allergen Reactions Hydrocodone Nausea And Vomiting Patient reports it was many years ago Codeine GI Disturbance MEDICAL HISTORY Past Medical History: Diagnosis Date Colon cancer ([facility]) Female pelvic congestion syndrome 02/20/2023 Glaucoma of both eyes bleeding SURGICAL HISTORY Past Surgical History: Procedure Laterality Date SECTION HERNIA REPAIR inguinal hernia LEFT COLECTOMY SIGMOID COLON RESECTION BY DR JEAN BAPTISTE, AT [facility] WISDOM TOOTH EXTRACTION SOCIAL HISTORY Social [...] patient/family/caregiver Referring and communicating with other health skin care consultant History of colon cancer [Z85.038] Clint Jean Baptiste DO This note was created with the assistance of a speech recognition program. While intending to generate a timely document that accurately reflects the content of the visit, no guarantee can be provided that every grammatical or spelling mistake has been or will be identified or corrected. Thank you for your understanding. [id number] Evaluation note* Encounter Date Diagnosis Assessment Notes [...] for PT printed and given to pt. [employer] Other 09-18-2023 Progress note Author Isaías Jordan [facility] March 24, 2023 11:05am Note Date/Time March 24, 2023 10:55am [facility] at [address] [address] Hem/Onc Follow Up Note - OP Signed Patient: Marysol Gardner MR#: [id number] : 1965 Acct:[id number] Age/Sex: 57 / F Type: REG RCR [...] prior to f/u. f/u with me or personal lines insurance agent in may/jun. renew her celebrex prescription. - History of Present Illness Chief Complaint: Patient is here for a 5 month follow up with labs and outside notes and radiology for review. 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 Labs reviewed on patient's chart from [place] - no significant cytopenias or electrolyte, renal/hepatic [...] from visiting her mother and family in [place]. She has no neuropathy at all. last [...] Also engorged periuterine vessels. She has seen inspector subassemblies. she had transvaginal ultrasound. This will be monitored. Her GERIATRICIAN has offered her a dexa scan. Her [...] for coordination of care (as documented) and bgaw-vv-yjvh counseling of patient and/or family. [facility] - Medical History Medical History: Medical [...] % (Auto) 47.6, Lymph % (Auto) 39.4, [place] % (Auto) 9.0, Eos % (Auto) 2.8, Baso % (Auto) 1.2, Nucleat RBC Rel Count 0.1, Neut # (Auto) 2.4, Lymph # (Auto) 2.0, [place] # (Auto) 0.5, Eos # (Auto) 0.1, [...] 1054 Signed By: <Electronically signed by Isaías oJrdan II, DO> 03/24/23 1105 [facility] Work Phone: 1(658) 836-843804-17-2023 Progress note Author Isaías Jordan [facility] October 21, 2022 8:50am Note Date/Time October 21, 2022 8:3 8am [facility] [place] [address] Hem/Onc Follow Up Note - OP Signed Patient: Marysol Gardner MR#: [id number] : 1965 Acct:[id number] Age/Sex: 57 / F Type: REG RCR [...] 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 Labs reviewed on patient's chart from [place] - no significant cytopenias or electrolyte, renal/hepatic [...] for coordination of care (as documented) and xpaq-hq-vwgt counseling of patient and/or family. [facility] - Medical History Medical History: Medical [...] by Isaías Jordan II, DO> 10/21/22 0850 [facility] Work Phone: 1(325) 715-226302-27-2023 Progress note Author Isaías Jordan [facility] September 02, 2022 9:09am Note Date/Time September 02, 2022 8:58am [facility] [place] [address] Hem/Onc Follow Up Note - OP Signed Patient: Marysol Gardner MR#: [id number] : 1965 Acct:[id number] Age/Sex: 57 / F Type: REG RCR [...] 4 or 6 weeks with me or personal lines insurance agent. - History of Present Illness Chief Complaint: Patient is here for a 2 week follow up with outside labs for review, prior to treatment today. States she is feeling remarkably better. 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 Labs reviewed on patient's chart from [place] - no significant cytopenias or electrolyte, renal/hepatic [...] for coordination of care (as documented) and ssaj-re-clxk counseling of patient and/or family. [facility] - Medical History Medical History: Medical [...] by Isaías Jordan II, DO> 09/02/22 0909 [facility] Work Phone: [phone]) 451-121002-13-2023 Hospital Discharge instructionsAmbulatory Orders* Proceed with Treatment Time Frame: 08/19/22, Location: Determined By Patient [facility] Work Phone: [phone]) 781-954302-13-2023 Hospital Discharge instructionsAmbulatory Orders* Proceed with Treatment Time Frame: 08/19/22, Location: Determined By Patient * Proceed with Treatment Time Frame: 09/02/22, Location: Determined By Patient * [facility] Order Time Frame: 1 Week, Location: Determined By Patient [facility] Work Phone: [phone]) 487-973502-13-2023 Hospital Discharge instructionsAmbulatory Orders* Proceed with Treatment Time Frame: 08/19/22, Location: Determined By Patient * Proceed with Treatment Time Frame: 09/02/22, Location: Determined By Patient * [facility] Order Time Frame: 1 Week, Location: Determined By Patient * Referral to General Surgery Time Frame: 04/04/25, Location: None Selected [facility] Work Phone: 1([phone]) 375-578602-13-2023 Progress note Author Dayansamantha Magallon [facility] August 19, 2022 11:20am Note Date/Time August 19, 2022 11:14am [facility] at [address] [address] Hem/Onc Follow Up Note - OP Signed Patient: Marysol Gardner MR#: [id number] : 1965 Acct:[id number] Age/Sex: 57 / F Type: REG RCR Copies to: MD Clint Bernstein,DO~ Subjective Date/Time of Service: Date of Service: 08/19/2022 Time of Service: 11:12 Chief Complaint: Patient is here for a 1 month follow up with labs for review, prior to treatment today. No concerns voiced. 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 Labs reviewed on patient's chart from [place] - no significant cytopenias or electrolyte, renal/hepatic [...] 10 point review of systems is negative. [facility] - Medical History Medical History: Medical [...] for coordination of care (as documented) and pwhk-zl-moge counseling of patient and/or family. Dictated By: Dayan Magallon APRN DD/ 11 Signed By: <Electronically signed by OLIVIA Magallon> 08/19/22 1120 [facility] Work Phone: [phone]) 572-351601-16-2023 Progress note Author Dayan Magallon [facility] July 22, 2022 11:46am Note Date/Time July 22, 2022 1 1:36am [facility] [place] [address] Hem/Onc Follow Up Note - OP Signed Patient: Marysol Gardner MR#: [id number] : 1965 Acct:[id number] Age/Sex: 57 / F Type: REG RCR Copies to: MD Clint Bernstein,DO~ Subjective Date/Time of Service: Date of Service: 07/22/2022 Time of Service: 11:34 Chief Complaint: Patient is here today for a one month follow up visit for coloncancer and go over labs. 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 Labs reviewed on patient's chart from [place] - no significant cytopenias or electrolyte, renal/hepatic [...] 10 point review of systems is negative. [facility] - Medical History Medical History: Medical [...] for coordination of care (as documented) and gdnf-vz-fdlg counseling of patient and/or family. Dictated By: Dayan Magallon APRN DD/ 1134 Signed By: <Electronically signed by OLIVIA Magallon> 07/22/22 1146 [facility] Work Phone: [phone]) 253-304612-19-2022 Progress note Author Isaías Jordan [facility] June 24, 2022 9:49am Note Date/Time June 24, 2022 9:42am [facility] [place] [address] Hem/Onc Follow Up Note - OP Signed Patient: Marysol Gardner MR#: [id number] : 1965 Acct:[id number] Age/Sex: 57 / F Type: REG RCR [...] cotn [employer]fox q2wks. f/u with me or personal lines insurance agent in a month. cbc, cmp on treatemet days. cea prior to f/u. 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 Labs reviewed on patient's chart from [place] - no significant cytopenias or electrolyte, renal/hepatic [...] for coordination of care (as documented) and edze-og-vgjp counseling of patient and/or family. 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 - plan [employer] 2, [...] for coordination of care (as documented) and btry-lx-qauy counseling of patient and/or family. 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 She began having irregular bowel movements in September 2021. She also noted increasing bilateral lower abdominal pain. She also had about a 10 pound weight loss prior to surgery. Her only other medical history is glaucoma. Primary care provider is Dr. Jose Guadalupe aRya. Outpatient medications include a few eyedrops, plus Ocuvite. Colonoscopy was performed on March 13, 2022, scope could not be passed meugpu85 cm due to a tumor in the [...] for coordination of care (as documented) and upjs-tm-rbvn counseling of patient and/or family. 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 She began having irregular [...] 13, 2022, scope could not be passed fotpse33 cm due to a tumor in the [...] for coordination of care (as documented) and kaby-rd-utko counseling of patient and/or family. [facility] - Medical History Medical History: Medical [...] signed by Isaías Jordan II, DO> 05/03/22 2098 [facility] Work Phone: [phone] History general Narrative - Reported* Type Description Date Medical History Colon cancer Medical History Pelvic congestion syndrome Surgical History Bowel resection 04/2022 Surgical History C -Section 2005 Surgical History Hernia repair 2001 Surgical History [place] teeth [facility] [employer] Other 09-07-2022 NoteOPERATIVE NOTE OPERATION DATE: 03/13/2022 [...] the abdomen and pelvis performed at the [facility], January 09, which was read as [...] diagnosis, then she will need surgical therapy.[id number] NotePatient Education Materials Follows: Laceration Care, Adult [...] needed: ? Soap. ? Water. ? Hand dive superintendent. ? Bandage (dressing). ? Antibiotic ointment. ? Clean towel. How to take care of your cut Wash your hands with soap and water before touching your wound or changing your bandage. If soap and water are not available, use hand dive superintendent. If your doctor used stitches or yuridia: [...] off the skin. General instructions ? Take lomq-yxu-bocyfpn and prescription medicines only as told by [...] anywhere on your body. (more content not included)...[facility] complaint+Reason for visit Narrative* Chief Complaint Admit Date Sore Throat/ENT Referral December 14, 2024 9:27am Reason for Visit Admit Date Pharyngitis, chronic December 14, 2024 9:2 7am [facility] Work Phone: Canatualuation note* Diagnosis Onset Date Resolution Status Colon cancer acute Encounter for chemotherapy management acute [facility] Work Phone: evaluation note* Diagnosis Onset Date Resolution Status Abnormal LFTs acute Chemotherapy-induced peripheral neuropathy acute Colon cancer acute Encounter for chemotherapy management acute [facility] Work Phone: evaluation noteNo assessment information available [facility] Work Phone: evaluation note* Diagnosis Onset Date Resolution Status Colon cancer acute Abnormal LFTs acute Chemotherapy-induced peripheral neuropathy acute Colon cancer acute Encounter for chemotherapy management acute Salivary gland hypertrophy a cute [facility] Work Phone: evalujgkbo note* Diagnosis Onset Date Resolution Status Salivary gland hypertrophy a cute Abnormal LFTs acute Chemotherapy-induced peripheral neuropathy acute Colon cancer acute Encounter for chemotherapy management acute [facility] Work Phone: evaluation note* Diagnosis History of colon cancer- Primary Personal history of malignant neoplasm of large intestine documented [facility] this encounter [facility] Diagnosis History of colon cancer- Primary Personal history of malignant neoplasm of large intestine documented in this encounter [facility]* Diagnosis History of removal of Aneq-c-Ijxw- Primary History of colon cancer Personal history of malignant neoplasm of large intestine documented in this encounter [facility]* Diagnosis Onset Date Resolution Status Admit Date Pharyngitis, chronic acute December 14, 2024 9:27am [facility] Work Phone: evaluation note* Diagnosis Globus sensation- Primary Gastrointestinal malfunction arising from mental factors LPRD (laryngopharyngeal reflux disease) Acute laryngitis, without mention of obstruction [facility] Diagnosis Onset Date Resolution Status Admit Date Abnormal LFTs acute March 072024 1:07pm Chemotherapy-induced peripheral neuropathy acute March 21, 2025 1:07pm Colon cancer acute March 212024 1:07pm Encounter for chemotherapy management acute March 21, 2025 1:07pm [facility] Work Phone: Evaluation note* Diagnosis Onset Date Resolution Status Admit Date Abnormal LFTs acute March 082024 1:09pm 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, 2025 1:09pm Colon cancer acute April 042024 1:09pm Encounter for chemotherapy management acute April 04, 2025 1:09pm [facility] Work Phone: Hospital Discharge instructionsAmbulatory Orders* Proceed with Treatment Time Frame: 08/19/22, Location: Determined By Patient [facility] Work Phone: Hospital Discharge instructionsAmbulatory Orders* Referral to ENT Time Frame: 11/17/23, Location: None Selected [facility] Work Phone: Hospital Discharge instructionsAmbulatory Orders* Referral to ENT Time Frame: 12/14/24, Location: None Selected [facility] Work Phone: Hospital Discharge instructions Additional [...] NOT operate machinery such as power tools, lawn mowers, snow blowers, sewing machines, etc. for 24 hours. - [...] problems. -Follow up with PCP. -Office number [phone]. [facility] Work Phone: InstructionsNot on filedocumented in this encounter [facility]Not on filedocumented in this encounter [facility] System[facility]ructionsNot on filedocumented in this encounter [facility] note Author Dayan Magallon [facility] June 03, 2022 8:41am Note Date/Time June 03, 2022 8:14am [facility] [place] [address] Hem/Onc Follow Up Note - OP Signed Patient: Marysol Gardner MR#: [id number] : 1965 Acct:[id number] Age/Sex: 57 / F Type: REG RCR [...] 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 Labs reviewed on patient's chart from [place] - no significant cytopenias or electrolyte, renal/hepatic issues. - Summary of Therapies Summary of Therapies: FOLFOX chemotherapy (adjuvant) 1. Cycle 1, Day 1: 05/27/2022 Subjective/ROS - Narrative: As per the HPI, otherwise 10 point review of systems is negative. 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 - plan Cycle 2, [...] for coordination of care (as documented) and geuh-jb-mnhv counseling of patient and/or family. Dictated By: Dayan Magallon APRN DD/ Signed By: <Electronically signed by OLIVIA Magallon> 06/03/22 0841 [facility] Work Phone: Progress note Author Isaías Jordan [facility] June 24, 2022 9:49am Note Date/Time June 24, 2022 9:42am [facility] [place] [id number] Hem/Onc Follow Up Note - OP Signed Patient: Marysol Gardner MR#: [id number] : 1965 Acct:[id number] Age/Sex: 57 / F Type: REG RCR [...] cotn folfox q2wks. f/u with me or personal lines insurance agent in a month. cbc, cmp on treatemet days. cea prior to f/u. 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 Labs reviewed on patient's chart from [place] - no significant cytopenias or electrolyte, renal/hepatic [...] for coordination of care (as documented) and udhd-dg-ysjs counseling of patient and/or family. [facility] - Medical History Medical History: Medical [...] by Isaías Jordan II, DO> 06/24/22 0949 [facility] Work Phone: Progress note Author Dayan [place] July 22, 2022 11:46am Note Date/Time July 22, 2022 1 1:36am [facility] [place] [address] Hem/Onc Follow Up Note - OP Signed Patient: Marysol Gardner MR#: [id number] : 1965 Acct:[id number] Age/Sex: 57 / F Type: REG RCR Copies to: MD Clint Bernstein,~ Subjective Date/Time of Service: Date of Service: 07/22/2022 Time of Service: 11:34 Chief Complaint: Patient is here today for a one month follow up visit for coloncancer and go over labs. 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 Labs reviewed on patient's chart from [place] - no significant cytopenias or electrolyte, renal/hepatic [...] 10 point review of systems is negative. [facility] - Medical History Medical History: Medical [...] for coordination of care (as documented) and jrvm-yf-hcne counseling of patient and/or family. Dictated By: Dayan Magallon APRN DD/ 1134 Signed By: <Electronically signed by OLIVIA Magallon> 07/22/22 1146 [facility] Work Phone: Progress note Author Isaías Jordan [facility] September 02, 2022 9:09am Note Date/Time September 02, 2022 8:58am [facility] [place] [id number] Hem/Onc Follow Up Note - OP Signed Patient: Marysol Gardner MR#: [id number] : 1965 Acct:[id number] Age/Sex: 57 / F Type: REG RCR [...] 4 or 6 weeks with me or personal lines insurance agent. - History of Present Illness Chief Complaint: Patient is here for a 2 week follow up with outside labs for review, prior to treatment today. States she is feeling remarkably better. 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 Labs reviewed on patient's chart from [place] - no significant cytopenias or electrolyte, renal/hepatic [...] for coordination of care (as documented) and vkbs-xq-fpls counseling of patient and/or family. 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 Labs reviewed on patient's chart from [place] - no significant cytopenias or electrolyte, renal/hepatic [...] from visiting her mother and family in [place]. She has no neuropathy at all. last [...] Also engorged periuterine vessels. She has seen inspector subassemblies. she had transvaginal ultrasound. This will be monitored. Her GERIATRICIAN has offered her a dexa scan. Her [...] january with no evidence recurrence. done at [facility]. Intake Vitals/Pain Assessment 01/19/24 11:22 Height 5 [...] latanoprost 0.005% 1 drp Eye-Both QPM omega 0-mog-ina-fish oil 300-1,000 mg (Fish Oil) 1 cap [...] No concerns voiced at time of intake. [facility] History Attestation statement: The following information was validated with the patient. Medical History Medical History delivery delivered Colon cancer Cancer (03/26/22) COVID bleeding Glaucoma of both eyes Surgical History Surgical History [place] teeth extracted S/P hernia repair History of [...] by Isaías Jordan II, DO> 01/19/24 1205 [facility] Work Phone: Reason for referral (narrative)No reason for referral [facility] Work Phone: Summary Purpose Family History No [...] 1:19 pm Encounter for chemotherapy management [facility] 2024 1:19pm Chief Complaint Admit Date EGD FOR GERD, HX OF COLON CANCER February 012024 8:20am Follow Up 6 Months March 21, 2025 1:06pm Colon Cancer March 21, 2025 1:07pm Reason for Visit Admit Date Abnormal LFTs March 21, 2025 1:07pm Chemotherapy-induced peripheral neuropat hy March 21, 2025 1:07pm Colon cancer March 21, 2025 1:07pm Encounter for chemotherapy management Se ptember 2024 1:07pm Chief Complaint Admit Date EGD FOR GERD, HX OF COLON CANCER February 012024 8:20am Follow Up 6 Months March 21, 2025 1:06pm Follow Up after PET and Biopsy April 04, 2025 1:09pm Reason for Visit Admit Date Abnormal LFTs April 04, 2025 1:09pm Chemotherapy-induced peripheral neuropat hy April 04, 2025 1:09pm Colon cancer April 04, 2025 1:09pm Encounter for chemotherapy management Se ptember 2024 1:09pm Additional Source Comments INFORMATION SOURCE (unrecogn ized section and content) DATE CREATED AUTHOR 05/02/2021 [facility] DATE CREATED AUTHOR AUTHOR'S ORGANIZ ATION 11/17/2022 [facility] DATE CREATED AUTHOR AUTHOR'S ORGANIZ ATION 03/27/2024 [facility] DATE CREATED AUTHOR AUTHOR'S ORGANIZ ATION 12/23/2024 [facility] DATE CREATED AUTHOR AUTHOR'S ORGANIZ ATION 04/08/2025 [facility] Care Teams (unrecognized sec tion and content) Team Status: Active Member Role Status Dates Sandro Chin MD Primary Care Provider Active Team Status: Active Member Role Status Dates Sandro Chin MD Primary Care Provider Active Start: December 25, 2024 Sandro Chin MD Attending Provider Active St art: December 25, 2024 Team Status: Active Member Role Status Dates Sandro Chin MD Primary Care Provider Active Start: February 01, 2025 Roz Borrego DO Attending Provider Active St art: February 01, 2025 Roz L Ly , DO Other Provider Active Start: February 01, 2025 Team Status: Active Member Role Status Dates Isaías Jordan II, Attending Provider Active Start: March 17, 2025 Sandro Chin MD Primary Care Provider Active Start: March 17, 2025 Team Status: Inactive Member Role Status Dates Sandro Chin MD Primary Care Provider Active Start: March 21, 2025 End: March 21, 2025 Isaías Jordan II, DO Attending Provider Active Start: March 21, 2025 End: March 21, 2025 Team Status: Active Member Role Status Dates Clint Jean Baptiste DO Referring Provider Active Start: March 21, 2025 Sandro Chin MD Primary Care Provider Active Start: March 21, 2025 Carlyn Turner APRN Attending Provider Active Start: March Team Status: Inactive Member Role Status Dates [...] End: January 19, 2024 Isaías Jordan II, Attending Provider Active Start: January 19, 2024 [...] Care Provider Active Start: September 26, 2023 Kristinamatias Turner APRN Attending Provider Acti ve Start: [...] Dates NON STAFF Primary Care Provider Active 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 Relationship Specialty Start Date End Date Sandro Chin MD [address] [place], [place] [id number] PCP - General Family Medicine 03/19/23 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 Relationship Specialty Start Date End Date Sandro Chin MD [address] [place] [id number] PCP - General Family Medicine 03/19/23 Team [...] 2024 End: September 06, 2024 Isaías Jordan II DO Attending Provider Active Start: September 06, 2024 End: September 06, 2024 Team Status: Active Member Role Status Dates Isaías Jordan II, DO Active S tart: September 06, 2024 Clint [...] December 14, 2024 End: December 14, 2024 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 Relationship Specialty Start Date End Date Sandro Chin MD [address] [facility] [place] [phone] PCP - General Family Medicine 12/14/24 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 Relationship Specialty Start Date End Date Sandro Chin MD [address] [place] [phone] PCP - General Family Medicine 12/14/24 Team [...] December 20, 2024 End: December 20, 2024 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 Relationship Specialty Start Date End Date Sandro Chin MD [address] [facility] [place] [phone] PCP - General Family Medicine 12/14/24 Team Status: Inactive Member Role Status Dates Sandro Chin MD Primary Care Provider Active Start: April 04, 2025 End: April 04, 2025 Isaías Jordan II, DO Attending Provider Active Start: April 04, 2025 End: April 04, 2025 Sandro Chin MD Primary Care Provider Active Start: April 04, 2025 Goals (unrecognized section and content) Goals [...] content) Reason Comments PORT REMOVAL PORT REMOVAL, PATIROHAN T HOPING TO HAVE PROCEDURE DONE 03/24/24, REFERRED BY DR JORDAN, PATIENT WANTED TO WAIT TO HAVE PROC DONE IN MAR SO WAITED FOR OV UNTIL FEBRUARY Reason Comments Procedure REMOVAL OF PORT Reason Comments Post-op Post op port removal performed in office on 03/15/24, suture removal Reason Comments Allergic Rhinitis Specialty Diagnoses / Procedures Referred By Soham denney Referred To Contact Otolaryngology Diagnoses Other seasonal allergic rhinitis Procedures ND UNLISTED EVALUATION AND MANAGEMENT SERVICE [facility] [address] [facility] [facility] [address] [place] [address] Phone: tel: fax: Constantino Martinez MD [address] [facility] [address] [place] [address] Phone: tel: fax: Referral ID Status Reason Start Date Expiration Date Visits Re quested Visits Authorized [id number] Closed 12/14/2024 06/12/2025 1 1 FOR RECORDS [...] BE BASED ON THE PRIMARY CLINICAL RECORDS. [employer] provides no warranty or guarantee of the accuracy or completeness of information in this document.
[2025-04-08 12:31] LABS: INR 1.03; Prothrombin Time 10.9 sec (9.0-11.6)
== END 2025-04-08 12:01 | disposition home or self-care (01) ==
LOC: LAB 12:00
PROVIDERS: PCP Family Medicine
DX: Z01.812 Encounter for preprocedural laboratory examination (principal); R91.1 Solitary pulmonary nodule
CPT/HCPCS: 36415; 85610

== ENCOUNTER 2025-04-15 13:31 | Outpatient (OUT) | payer BC, SELFPAY ==
--- NOTE | 2025-04-15 13:35 | ECG_ITS ---
[facility] Test Date: 2025-04-15 Pat Name: SHU GARDNER Department: Room: - Gender: Female [employer]: : 1965 Requested By: CLINT LEAVITT Order Number: [id number] Reading MD: KENA CARRION M.D. Measurements Intervals [place] Rate: 46 P: 74 ID: [id number] QRS: 61 QRSD: 87 T: 22 QT: 393 QTc: 346 Interpretive Statements SINUS BRADYCARDIA POSSIBLE LEFT ATRIAL ENLARGEMENT [-0.1mV P WAVE IN V1/V2] Abnormal ECG Compared to ECG 04/02/2022 15:09:12 Sinus arrhythmia no longer present Electronically Signed On 04-15-2025 17:35:27 EDT by KENA CARRION M.D.
--- OUTSIDE RECORDS SUMMARY | 2025-04-15 13:40 | XMS_ITS | CCD ---
Author Organization [facility] Care Team Providers Care Dissolver Operator Name Role Phone DO Isaías Jordan II Attending Provider [phone] DO Clint Jean Baptiste Referring Provider MD Sandro Chin Primary Care Provider DO Isaías Jordan II Attending Provider [phone] NON STAFF Primary Care Provider DO Clint [...] DR SANDRO Ernst Primary Care Unavailable ITA Rodriguez, DR CLINT Ernst Consulting Unavaila ble ITA ., DR CLINT Ernst Admitting Unavaila ble GRDUGLAS ., DR CLINT Ernst Attending Unavaila ble [...] ., DR CLINT Ernst Admitting Unavaila ble GRDUGLAS ., DR CLINT Ernst Attending Unavaila ble CHIN, DR SANDRO Ernst Primary Care Unavailable GRILLIS ., DR CLINT Ernst Consulting Unavaila ble KODI, CANDELARIO Consulting Unavailable GRILLIS ., DR CLINT Ernst Admitting Unavaila ble GRILLIS ., DR CLINT Ernst Attending Unavaila ble CHIN, DR SANDRO Ernst Primary Care Unavailable GRILLIS ., DR CLINT Ernst Consulting Unavaila ble GRILLIVidhya ., DR CLINT Ernst Admitting Unavaila ble GRILLIS ., DR CLINT Ernst Attending Unavaila ble CHIN, DR SANDRO Ernst Primary Care Unavailable GRILLIS ., DR CLINT Ernst Consulting Unavaila ble ZIEBER, DR NEDA Gallo Consulting Unavailable KODI, CANDELARIO Consulting Unavailable SHARP, BERTHA Consulting Unavailable KUCHIPUDI, JOLENE Consulting Unavailable HCIN, DR SANDRO Ernst Primary Care Unavailable KATKO, [...] Unavailable DO Clint Jean Baptiste Referring Provider [phone] MD Sandro Chin Primary Care Provider [phone] OLIVIA Turner Attending Provider DO Clint Jean Baptiste Referring Provider [phone] MD Sandro Chin Primary Care Provider [phone] OLIVIA Turner Attending Provider CLINT JEAN BAPTISTE [...] Provider Sandro Chin MD Primary Care Provider [phone] CONSTANTINO MARTINEZ Attending Unavailable Sandro Chin MD Primary Care Provider Sandro Chin MD Attending Provider [phone] Roz Borrego DO Attending Provider [phone] Roz Borrego DO Other Provider Sandro Chin MD Primary Care Provider Sandro Chin MD Attending Provider [phone] Isaías Jordan DO Attending Provider Clint Jean Baptiste DO Referring Provider Carlyn Turner APRN Attending Provider Sandro Chin MD Primary Care Provider Sandro Chin Primary Care Unavailable Salima Roz L Admitting Unavailable Salima Roz L Attending Unavailable Sandro Chin Admitting Unavailable Sandro Chin Primary Care Unavailable Sandro Chin Attending Unavailable Isaías Jordan II Attending Unavaila ble Clint Jean Baptiste Referring Unavailable Sandro Chin Primary Care Unavailable Isaías Jordan II Admitting Unavaila Clint Obando Attending Unavailable ENDER MOORE Referring Unavailable SANDRO CHIN Primary Care Unavailable ANTONIO MI Referring Unavailable SANDRO CHIN Primary Care Unavailable SANDRO CHIN Primary Care Physician Allergies Allergy Classification Reported Allergen(s) Allergy Type Date of Onset Reaction(s) Facility (19 sources) HYDROcodone; Translations: [Hydrocodone] Drug Allergy 2 Nausea And Vomiting, Nausea (finding) [facility] (1 source) Misc-Food; Translations: [Misc-Food] Food allergy (disorder) [facility] Rep[facility] (10 sources) Codeine; Translations: [CODEINE] Drug Allergy 3 GI Disturbance, GI intolerance, Gastrointestinal irritation (disorder) [facility] Repository Medications Current Medications Medication Drug [...] drop(s) into the eye(s) twice daily brimonidine Opth 0.2% Aurora 1 drop(s), Eye-Both, BID, Refill(s) 0 Start Date: 05/02/22 Status: Ordered Repeat number: 1 Start: 05-02-2022 take 1 drop(s) into the [...] the morning and at bedtime. 01/20/2022 Active cholecalciferol 0.025 mg oral capsule (17 [...] capsule capsule Take by mouth 01/19/2024 Active Lincoln 7-Ddk-Qss-Fish Oil (7 sources) Start: 01-19-2024 take 300-1000 mg by mouth once daily Start: 01-19-2024 take 300-1000 mg by mouth once daily Lincoln 2-Rbk-Vtm-Fish Oil (Fish Oil) 300-1,000 mg capsule Active 1 CAP PO Daily January 19, 2024 12:00am Complies with drug therapy Start: 01-19-2024 take 300-1000 mg by mouth once daily Lincoln 5-Qmh-Clc-Fish Oil (Fish Oil) 300-1,000 mg capsule Active 1 CAP PO Daily January 18, 2024 11:00pm Start: 01-19-2024 take 300-1000 mg by mouth once daily Lincoln 5-Ujt-Syr-Fish Oil (Fish Oil) 300-1,000 mg capsule Active [...] the morning and at bedtime. 02/06/2022 Active Start: 02-05-2022 dorzolamide-ti molol (Cosopt) 2-0.5 % ophthalmic solution INSTILL 1 DROP INTO EACH EYE TWICE DAILY DIRECTED 11/12/2024 Active famotidine 20 mg oral tablet (3 sources) Histamine-2 Receptor Antagonist Start: 12-21-2024 End: 03-21-2025 take 1 tablet by mouth at bedtime famotidine (Pepcid) 20 MG tablet Indications: LPRD (laryngopharyngeal reflux disease) Take 1 tablet (20 mg) by mouth at bedtime 90 tablet 12/21/2024 Active latanoprost 0.05 mg/ml ophthalmic suspension (20 sources) Prostaglandin Analog Start: 04-13-2025 take 1 drop(s) into the eye(s) twice daily latanoprost 0.005% ophthalmic emulsion 1 drop(s), Eye-Both, BID, Refill(s) 0 Start Date: 04/13/25 Status: Ordered Repeat number: 1 Start: 04-24-2024 take 1 drop(s) into the [...] ORAL) Take by mouth daily. Active omega 2-wgd-lzv-fish oil (Fi sh OiL) 300-1,000 mg capsule [...] 2022 1:00am December 14, 2024 9:54am pantoprazole (11 sources) Proton Pump Inhibitor Start: 04-13-2025 pantopra zole Refills(s) 0 Start Date: 04/13/25 Status: Ordered Repeat number: 1 Start: 03-10-2025 take 1 tablet by suellen th once daily Start: 12-14-2024 End: 03-10-2025 take [...] Vitamin D3 (1 source) Vitamin D3 Active Vitamin D3 1000 intl units (25 mcg) Tab (1 source) Start: 04-13-2025 take 1 tablet by mouth once daily Vitamin D3 1000 intl units (25 mcg) Tab 25 mcg = 1 tab(s), Oral, Daily, Refills(s) 0 Start Date: 04/13/25 Status: Ordered Repeat number: 1 Completed/Discontinued Medications Medication Drug Class(es) Dates Sig [...] Start: 05-27-2022 take 1 capsule by mo ut once daily Ascorbic Acid (Vitamin C) Active [...] 11:38am Start: 08-19-2022 take 1 tablet by [facility] once daily Carica Papaya (Papaya Enzyme) [...] 01, 2024 12:06pm administer with a meal Yslux-Xe-6-Dha-Ep d-Anwjjtf-Qtm (11 sources) Start: 05-02-2022 End: 05-03-2022 take 3 capsules by mouth once daily Yzwut-Xx-5-Dha-Ep t-Ojzebhi-Ygd Discontinued 1 CAP PO Daily May 02, 2022 12:00am May 03, 2022 2:39pm Start: 05-02-2022 End: 05-03-2022 take 3 capsules by mouth once daily Hujkl-Yg-1-Aau-Dzw-Bmejdod-Ast Discontin ued 1 CAP PO Daily May 01, 2022 11:00pm May 03, 2022 1:39pm Eocdk-On-1-Uhf-Wby-Wwboeuj-A st 1,451-116-04-80 mg Capsule (6 sources) Start: 05-02-2022 End: 05-03-2022 Ylvsk-Lk-9-Smn-Fli-Zgebzfa-A st 1,296-064-94-80 mg Capsule Discontinued 1 CAP PO Daily May 02, 2022 12:00am May 03, 2022 2:39pm Start: 05-02-2022 End: 05-03-2022 Bwuff-Zq-1-Vkj-Qvd-Hshkspo-A st 1,691-475-85-80 mg Capsule Discontinued 1 CAP PO Daily [...] Q6H as needed for Nausea And Vomiting 60 August 05, 2022 1:00am March 24, 2023 10:40am sod sulf-pot chloride-mag sulf 1.479-0.188- 0.225 gram tablet (1 source) Start: 03-19-2023 End: 03-02-2024 sod sulf-pot chloride-mag sulf 1.479-0.188- 0.225 gram tablet Indications: Primary malignant neoplasm of sigmoid colon (CMS-HCC) Please see instructional sheet given by physicians office. 24 tablet 03/19/2023 03/02/2024 Discontinued Vit C-E-Zinc Vj-Tfmb-Nml-Zeax (Icaps Areds2) 250 mg-200 unit -12.5 mg-1 mg Capsule (10 sources) Start: 06-25-2023 End: 11-17-2023 take 2 capsules by mouth once daily Vit C-E-Zinc Dw-Lmin-Onc-Zeax (Icaps Areds2) 250 mg-200 unit -12.5 mg-1 mg Capsule Discontinued 2 CAP PO Daily June 25, 2023 12:00am November 17, 2023 8:48am Start: 06-25-2023 End: 11-17-2023 take 2 capsules by mouth once daily Vit C-E-Zinc Sd-Dzox-Cba-Zeax (Icaps Areds2) 250 mg-200 unit -12.5 mg-1 mg Capsule Discontinued 2 CAP PO Daily June 25, 2023 1:00am November 17, 2023 9:48am Start: 06-25-2023 take 2 capsules by m outh once daily Vit C-E-Zinc Cz-Vjcz-Ikh-Zeax (Icaps Areds2) 250 mg-200 unit -12.5 mg-1 mg Capsule Active 2 CAP PO Daily June 25, 2023 1:00am Start: 06-25-2023 take 2 capsules by m outh once daily Vit C-E-Zinc Zh-Dbaw-Tsm-Zeax (Icaps Areds2) 250 mg-200 unit -12.5 mg-1 [...] Problem Date Documented Date Episodic/Chronic Anxiety disorders (12 sources) Anxiety; Translations: [Other specified anxiety disorders] [...] NEEDL INIT] Onset: 09-18-2022 Episodic Esophageal disorders (8 sources) Laryngopharyngeal reflux; Translations: [Gastro-esophageal reflux disease without esophagitis] Onset: 02-01-2025 12-21-2024 Chronic Glaucoma (9 sources) Unspecified glaucoma; Translations: [Bilateral glaucoma] Onset: [...] unspecified site] Onset: 12-20-2024 07-01-2024 Chronic Other lower respiratory disease (1 source) Solitary pulmonary nodule; Translations: [Solitary pulmonary nodule] Onset: 04-12-2025 Episodic Other nervous system disorders (18 sources) Peripheral neuropathy due to and following chemotherapy; Translations: [Drug-induced polyneuropathy] Onset: 12-20-2024 07-22-2022 Chronic Other nervous system disorders (6 sources) Drug-induced polyneuropathy; Translations: [Polyneuropathy due to other toxic agents] 08-19-2022 Chronic Other nutritional; endocrine; and metabolic disorders (1 source) Overweight 04-13-2025 Episodic Other nutritional; endocrine; and metabolic disorders (1 source) Overweight in adulthood with body mass index of 25 or more but less than 30 04-13-2025 Episodic Other upper respiratory disease (10 sources) Chronic [...] 01-09-2022 Episodic Other aftercare (1 source) Other half-way (current) drug therapy; Translations: [OTH NURSING HOME CURRENT DRUG THERAPY] Onset: 04-22-2022 Episodic Other [...] Test Name Value Interpretation Reference Range Facility Ambulatory Visit Summaryon 1 Ambulatory Visit Summary Ambulatory Visit Summary MARYSOL GARDNER :1965 Visit Date:04/13/2025 Ambulatory Visit Instructions Your Diagnosis Recurrent carcinoma of colon Your Care Team Attending Physician - DAGMAR EMMANUEL, Clint Gallo Primary Care Physician - GIUSEPPE EMMANUEL, SANDRO This Is Your Medications List Contact prescribing physician if questions or concerns brimonidine ophthalmic (brimonidine Opth 0.2% Aurora) cholecalciferol (Vitamin D3 1000 intl units (25 mcg) Tab) dorzolamide-timolol ophthalmic (Cosopt Plus 2%-0.5% Soln-Opth) latanoprost ophthalmic (latanoprost 0.005% ophthalmic emulsion) pantoprazole Procedures Performed Removal of implantable venous access port (03/15/2024), Colonoscopy (2022), Insertion of implantable venous access device using fluoroscopic guidance. (05/22/2022), Sigmoid colectomy (04/2022), Colonoscopy (03/13/2022), section, EGD - esophagogastroduodenoscopy , Extraction of wisdom tooth, Repair of left inguinal hernia. Discharge Vitals Heart Rate (Peripheral) 80 Respiratory Rate 16 Blood Pressure 126/86 Height 162 cm Height 64 in Weight 72.6 kg Weight 160.055 lb BMI 27.66 Medications What How Much When Instructions Unchanged brimonidine ophthalmic (brimonidine Opth 0.2% Aurora) 1 Drops Both eyes 2 times a day Contact prescribing physician if questions or concerns Unchanged cholecalciferol (Vitamin D3 1000 intl units (25 mcg) Tab) 1 Tablets By Mouth Every day Contact prescribing physician if questions or concerns Unchanged dorzolamide-timolol ophthalmic (Cosopt Plus 2%-0.5% Soln-Opth) 1 Drops Both eyes 2 times a day Ophthalmic, 0 Refill(s) Contact prescribing physician if questions or concerns Unchanged latanoprost ophthalmic (latanoprost 0.005% ophthalmic emulsion) 1 Drops Both eyes 2 times a day Contact prescribing physician if questions or concerns Unchanged pantoprazole Contact prescribing physician if questions or concerns Allergies HYDROcodone (Nausea) codeine (Gastrointestinal upset) Problems Ongoing - Any problem that you are currently receiving treatment for. Anxiety BMI 27.0-27.9,adult Gastroesophageal reflux disease Glaucoma Overweight Recurrent carcinoma of colon Patient Survey You may receive a survey via text or e-mail asking about your office visit. Please share your experience with us by completing your survey. We appreciate your feedback and thank you for choosing us for your care. Patient Portal You may access all of your results and other medical record information on our secure patient portal. If you are not signed up for this yet, please contact [email or web address] at [phone] to get signed up today. Language Information Language assistance services are available as needed. Normal [facility] CT NEEDLE BIOPSY LUNG PERCUT ANEOUS W IMAGING GUIDANCEon 04-11-2025 CT NEEDLE BIOPSY LUNG PERCUTANEOUS W IMAGING GUIDANCE IMPRESSION: 1. Successful core biopsy of right upper lobe anterior pulmonary nodule. 2. Blood patch was injected after biopsy for pneumothorax prevention. HISTORY: MAYRSOL GARDNER is a Female of 60 years age. DIAGNOSIS: Solitary pulmonary nodule COMPARISON: None available. CT Dose-Length Product (estimate related to radiation exposure from this exam): 384.17 mGy*cm. PROCEDURE: Following the discussion of the procedure, alternatives, risks versus benefits, informed consent was obtained from the patient. Specifically, risks of after-biopsy pain at the site, rare possibility of excessive hemorrhage, infection, injury to the adjacent organs were discussed and the patient verbalized understanding. Pre-procedure evaluation confirmed that the patient was an appropriate candidate for conscious sedation. Adequate sedation was maintained during the entire procedure. Vital signs, pulse oximetry, and response to verbal commands were monitored and recorded by the nurse throughout the procedure and the recovery period. Medical information was entered in the medical record including the medications and dosages used. The patient returned to baseline neurologic and physiologic status prior to leaving the department. No immediate sedation related complications were noted. Medication for conscious sedation was administered via IV route. 45 minutes of conscious sedation was provided. Following universal protocol, patient and site verification was performed with a timeout prior to the procedure. The patient was placed on the CT table in supine position and the right anterolateral chest wall area was prepped and draped in usual sterile fashion. Using the usual sterile conditions, lidocaine and CT guidance, the right upper lobe pulmonary nodule was accessed using an 20-guage coaxial biopsy needle system. After confirmation of appropriate localization of the needle, total of 2 samples were obtained and sent for pathological analysis. Blood patch was injected through the coaxial needle for pneumothorax prevention. The coaxial needle system was removed and hemostasis was achieved by direct digital compression. The patient tolerated the procedure well. No immediate complications identified. The patient left the CT suite in supine position to the recovery room in stable condition. Total local anesthetic used: lidocaine, approximately 8 mL. Estimated blood loss: Negligible. The patient was observed in the recovery room for two hours after the procedure and discharged in stable condition. Electronically signed by Ender Moore Interpreted by: Ender Moore MD Signed by: Ender Moore MD 04/12/25 Final result Normal [facility] Surgical Specimenon 04-11-20 Surgical Specimen [facility] [address] [place] [address] FINAL SURGICAL PATHOLOGY REPORT Patient Name: MARYSOL GARDNER Accession No: [id number] Age Sex: 1965 Location: DIS Account No: [id number] Collected: 04/11/2025 [facility] Rec No: [id number] Received: 04/12/2025 Attend Phys: ENDER MOORE Completed: 04/14/2025 Perform Phys: ISAÍAS JORDAN FINAL DIAGNOSIS: RIGHT UPPER LOBE LUNG BIOPSY: ADENOCARCINOMA COMMENT: IMMUNOHISTOCHEMICAL STAINING SHOWS THAT THE TUMOR CELLS ARE POSITIVE FOR CDX2 AND CK20. THE TUMOR CELLS ARE NEGATIVE FOR TTF-1. ALL STAINS ARE PERFORMED IN ASSOCIATION WITH APPROPRIATE CONTROLS. IN CONJUNCTION WITH THE CLINICAL HISTORY AND MORPHOLOGY, THE STAINING PATTERN IS MORE CONSISTENT WITH A COLORECTAL PRIMARY THAN A LUNG PRIMARY. CLINICAL CORRELATION IS NECESSARY. CECILE/CECILE CLINICAL INFORMATION: Results to Dr. Jordan. Right upper lobe lung nodule. SPECIMEN: Right Upper Lobe Lung GROSS DESCRIPTION: Received in formalin labeled with the patient's name and designated right upper lobe lung nodule biopsy is a solitary core of miles tissue, measuring 8 mm in length and 1 mm in diameter. The core is white, and is submitted in toto in one cassette. All of the fixative is also strained through the biopsy bag where the core is present. PSW/NAN CPT: 68906 X1 41273 X2 53456 X1 J MIC DONNELLY M.D. 04/14/2025 Electronically signed out by Page 1 of 1 Abnormal [facility] Comment on above: Performed By: #### S UR #### [facility] [address] [place] [address] XR CHEST (2 VW)on 04-11-2025 XR CHEST (2 VW) IMPRESSION: 1. No evidence of pneumothorax or pleural effusion. 2. Again seen are bilateral pulmonary nodules. COMPARISON: No prior studies available for comparison. DIAGNOSIS: post right upper lobe lung biopsy COMMENTS: Reason for exam:->post right upper lobe lung biopsy TECHNIQUE: XR CHEST (2 VW) FINDINGS: Again seen are bilateral pulmonary nodules. No evidence of pneumothorax. No evidence of pleural fluid. Cardiac silhouette is normal in size. Visualized soft tissues, and osseous structures are unremarkable. Electronically signed by Ender Moore Interpreted by: Ender Moore MD Signed by: Ender Moore MD 04/11/25 Final result Normal [facility] GLUCOSE POCT GLUCOMETERSon 0 03-30-2025 Glucose [Mass/Vol] 100 mg/dL [facility] Comment on above: Random Glucose Refer ence Range is dependent on time and content of last meal. Glucose of more than 200 mg/dL in a nonstressed, ambulatory subject supports the diagnosis of Diabetes Mellitus. [facility] Glucose Poct Glucometerson 0 03-30-2025 Glucose [Mass/Vol] 100 mg/dL Normal [facility] Comment on above: Result Comment: [place] Glucose Reference Range is dependent on time and content of last meal. Glucose of more than 200 mg/dL in a nonstressed, ambulatory subject supports the diagnosis of Diabetes Mellitus. PERFORMED BY: [place] [id number] PATHOLOGIST APPLICATION DEVELOPER MANAGER CECY RODRIGUEZ M.D. Performed By: #### G LULS #### Point of Care testing , PET tumor init tx strat sb-m ton 03-30-2025 PET tumor init tx strat sb-mt [facility] Main [place] [id number] Nuclear Medicine Report Signed Patient: Marysol Gardner MR#: [id number] 22 : 1965 Acct:[id number] Age/Sex: 59 / F ADM Date: 03/30/25 Loc: Room: Type: [facility] RCR Attending Dr: Carlyn Turner CUSTOMER SUPPORT REPRESENTATIVE Copies to: Andres Wallis Jr, DO Mary K Demboske, APRN Timothy J Adamowicz, II, DO Ordering Provider: Isaías Jordan II, [...] Jr., D.O. 03/30/2025 11:44 AM Dictation Location: [place] [address] Transcribed By: [facility] 03/30/25 1144 Dictated By: Andres Wallis Jr, DO 03/30/25 1134 Signed By: 03/30/25 1144 Normal [facility] Basophils Auto (Bld) [#/Vol] Ordered By: Isaías Jordan on 03-17-2025 Basophils (Bld) [#/Vol] 0.0 10 3/uL 0.0-0.1 [facility] Basophils/100 WBC Auto (Bld) Ordered By: Isaías Jordan on 03-17-2025 Basophils/100 WBC (Bld) 0.6 % 0.2-2.0 [facility] Eosinophils/100 WBC Auto (Bl d)Ordered By: Isaías Jordan on 03-17-2025 Eosinophils/100 WBC (Bld) 2.1 % 0.9-7.0 [facility] Erythrocyte distribution wid th Auto (RBC) [Ratio]Ordered By: Isaías Jordan on 03-17-2025 Erythrocyte distribution width (RBC) [Ratio] 13.2 % 11.0-15.0 [facility] Globulin Calc (S) [Mass/Vol] Ordered By: Isaías Jordan on 03-17-2025 Globulin (S) [Mass/Vol] 3.7 g/dL [facility] Glomerular filtration rate ( GFR) estimation in non- AmericanOrdered By: Isaías Jordan on 03-17-2025 GFR/1.73 sq M.predicted among non-blacks MDRD (S/P/Bld) [Vol rate/Area] mL/min/{1.73_m2} >=60 mL/min/1.7 3m 2 [facility] Hematocrit Auto (Bld) [Volum e fraction]Ordered By: Isaías Jordan on 03-17-2025 Hematocrit (Bld) [Volume fraction] 41.6 % 36.0-48.0 [facility] Hemoglobin [Mass/volume] in BloodOrdered By: Isaías Jordan on 03-17-2025 Hemoglobin (Bld) [Mass/Vol] 13.9 g/dL 12.0-16.0 [facility] Laboratory - Chemistry and C hemistry - challengeOrdered By: Isaías Jordan on 03-17-2025 Albumin [Mass/Vol] 3.8 g/dL 3.4-5.0 [facility] ALP [Catalytic activity/Vol] 81 U/L 46-116 [facility] ALT [Catalytic activity/Vol] 24 U/L 14-59 [facility] AST [Catalytic activity/Vol] 22 U/L 15-37 [facility] Bilirubin [Mass/Vol] 0.5 mg/dL 0.2-1.0 [facility] Calcium [Mass/Vol] 9.1 mg/dL 8.5-10.1 [facility] Chloride [Moles/Vol] 105 mmol/L 98-107 [facility] CO2 [Moles/Vol] 27.3 mmol/L 21.0-32.0 [facility] Creatinine [Mass/Vol] 0.57 mg/dL 0.55-1.02 [facility] GFR/1.73 sq M.predicted MDRD (S/P/Bld) [Vol rate/Area] mL/min/{1.73_m2} >=60 mL/min/1.7 3m 2 [facility] Glucose [Mass/Vol] 100 mg/dL 74-106 [facility] Potassium [Moles/Vol] 3.9 mmol/L 3.5-5.1 [facility] Protein [Mass/Vol] 7.5 g/dL 6.4-8.2 [facility] Sodium [Moles/Vol] 140 mmol/L 136-145 [facility] Urea nitrogen [Mass/Vol] 13.0 mg/dL 7.0-18.0 [facility] Urea nitrogen/Creatinine [Mass ratio] 22.8 mg/mg [facility] Laboratory - Hematology and Cell countsOrdered By: Isaías Jordan on 03-17-2025 Immature granulocytes/100 WBC (Bld) 0.2 % 0.0-0.5 [facility] Leukocytes [#/volume] correc audrey for nucleated erythrocytes in Blood by Automated counOrdered By: Isaías Jordan on 03-17-2025 WBC corrected for nucl RBC Auto (Bld) [#/Vol] 4.9 10 3/uL 4.0-11.0 [facility] Lymphocytes Auto (Bld) [#/Vo l]Ordered By: Isaías Jordan on 03-17-2025 Lymphocytes (Bld) [#/Vol] 1.5 10 3/uL 1.2-3.8 [facility] Lymphocytes/100 WBC Auto (Bl d)Ordered By: Isaías Jordan on 03-17-2025 Lymphocytes/100 WBC (Bld) 31.1 % 20.5-60.0 [facility] MCH Auto (RBC) [Entitic mass ]Ordered By: Isaías Jordan on 03-17-2025 MCH (RBC) [Entitic mass] 31.9 pg 26.7-34.0 [facility] MCHC Auto (RBC) [Mass/Vol]Or dered By: Isaías Jordan on 03-17-2025 MCHC (RBC) [Mass/Vol] 33.4 g/dL 29.9-35.2 [facility] MCV Auto (RBC) [Entitic vol] Ordered By: Isaías Jordan on 03-17-2025 MCV (RBC) [Entitic vol] 95.4 fL 81.0-99.0 [facility] Monocytes Auto (Bld) [#/Vol] Ordered By: Isaías Jordan on 03-17-2025 Monocytes (Bld) [#/Vol] 0.5 10 3/uL 0.3-0.8 [facility] Monocytes/100 WBC Auto (Bld) Ordered By: Isaías Jordan on 03-17-2025 Monocytes/100 WBC (Bld) 9.9 % 1.7-12.0 [facility] Neutrophils Auto (Bld) [#/Vo l]Ordered By: Isaías Jordan on 03-17-2025 Neutrophils (Bld) [#/Vol] 2.7 10 3/uL 1.4-6.5 [facility] Neutrophils/100 WBC Auto (Bl d)Ordered By: Isaías Jordan on 03-17-2025 Neutrophils/100 WBC (Bld) 56.1 % 43.0-75.0 [facility] No Panel InformationOrdered By: Isaías Jordan on 03-17-2025 Eosinophils # (Auto) 0.1 10 3/uL 0.0-0.7 [facility] Immature Granulocyte # (Auto) 0.01 10 3/uL 0.00-0.03 [facility] Platelet mean volume Auto (B ld) [Entitic vol]Ordered By: Isaías Jordan on 03-17-2025 Platelet mean volume (Bld) [Entitic vol] 10.4 fL 9.5-13.5 [facility] Platelets Auto (Bld) [#/Vol] Ordered By: Isaías Jordan on 03-17-2025 Platelets (Bld) [#/Vol] 206 10 3/uL 150-450 [facility] RBC Auto (Bld) [#/Vol]Ordere d By: Isaías Jordan on 03-17-2025 RBC (Bld) [#/Vol] 4.36 10 6/uL 4.20-5.40 [facility] Serum or plasma albumin/glob ulin mass ratioOrdered By: Isaías Jordan on 03-17-2025 Albumin/Globulin [Mass ratio] 1.0 {ratio} [facility] Serum or plasma anion gap de terminationOrdered By: Isaías Jordan on 03-17-2025 Anion gap [Moles/Vol] 11.6 mmol/L [facility] Pathology Request for Lab Co rpon 02-01-2025 Pathology Request for Lab Luzma Normal [facility] Comment on above: Order Comment: GI SP ECIMEN Result Comment: See report. Scanned copy available in EMR. PERFORMED BY: [place] [id number] PATHOLOGIST APPLICATION DEVELOPER MANAGER CECY RODRIGUEZ M.D. Performed By: #### P ATH TO [facility] #### [address] Basophils Auto (Bld) [#/Vol] Ordered By: Sandro Chin on 12-25-2024 Basophils (Bld) [#/Vol] 0.0 10 3/uL 0.0-0.1 [facility] Basophils/100 WBC Auto (Bld) Ordered By: Sandro Chin on 12-25-2024 Basophils/100 WBC (Bld) 0.8 % 0.2-2.0 [facility] Cholesterol in LDL Calc [Mas s/Vol]Ordered By: Sandro Chin on 12-25-2024 Cholesterol in LDL [Mass/Vol] 157.0 mg/dL [facility] Comment on above: <100 mg/dl [id number] 0-129 mg/dl NEAR OR ABOVE [id number] mg/dl BORDERLINE [id number] mg/dl HIGH>190 mg/dl VERY HIGH Cholesterol in VLDL Calc [Ma ss/Vol]Ordered By: Sandro Chin on 12-25-2024 Cholesterol in VLDL [Mass/Vol] 14.0 mg/dL [facility] Eosinophils/100 WBC Auto (Bl d)Ordered By: Sandro Chin on 12-25-2024 Eosinophils/100 WBC (Bld) 1.5 % 0.9-7.0 [facility] Erythrocyte distribution wid th Auto (RBC) [Ratio]Ordered By: Sandro Chin on 12-25-2024 Erythrocyte distribution width (RBC) [Ratio] 13.4 % 11.0-15.0 [facility] Estimated glomerular filtrat ion rate (GFR) non- AmericanOrdered By: Sandro Chin on 12-25-2024 GFR/1.73 sq M.predicted among non-blacks MDRD (S/P/Bld) [Vol rate/Area] mL/min/{1.73_m2} >=60 mL/min/1.7 3m 2 [facility] Globulin Calc (S) [Mass/Vol] Ordered By: Sandro Chin on 12-25-2024 Globulin (S) [Mass/Vol] 3.5 g/dL [facility] Glucose mean value [Mass/vol ume] in Blood Estimated from glycated hemoglobinOrdered By: Sandro Chin on 12-25-2024 Average glucose Estimated from glycated hemoglobin (Bld) [Mass/Vol] 111 mg/dL [facility] Hematocrit Auto (Bld) [Volum e fraction]Ordered By: Sandro Chin on 12-25-2024 Hematocrit (Bld) [Volume fraction] 41.8 % 36.0-48.0 [facility] Hemoglobin A1c percentageOrd ered By: Sandro Chin on 12-25-2024 HbA1c (Bld) [Mass fraction] 5.5 % 4.5-6.2 [facility] Comment on above: ADA RECOMMENDED LIMI T 4.0 - 6.0ADA THERAPEUTIC TARGET < 7.0ACTION SUGGESTED> 7.0 Hemoglobin [Mass/volume] in BloodOrdered By: Sandro Chin on 12-25-2024 Hemoglobin (Bld) [Mass/Vol] 13.9 g/dL 12.0-16.0 [facility] Laboratory - Chemistry and C hemistry - challengeOrdered By: Sandro Chin on 12-25-2024 Albumin [Mass/Vol] 4.0 g/dL 3.4-5.0 [facility] ALP [Catalytic activity/Vol] 76 U/L 46-116 [facility] ALT [Catalytic activity/Vol] 24 U/L 14-59 [facility] AST [Catalytic activity/Vol] 14 U/L Low 15-37 [facility] Bilirubin [Mass/Vol] 0.6 mg/dL 0.2-1.0 [facility] Calcium [Mass/Vol] 9.6 mg/dL 8.5-10.1 [facility] Chloride [Moles/Vol] 106 mmol/L 98-107 [facility] Cholesterol [Mass/Vol] 219 mg/dL High <=200 [facility] Cholesterol in HDL [Mass/Vol] 48 mg/dL 40-60 [facility] Comment on above: > or =60 mg/dl - LOW CARDIOVASCULAR RISK<40 mg/dl - HIGH CARDIOVASCULAR RISK CO2 [Moles/Vol] 28.6 mmol/L 21.0-32.0 [facility] Creatinine [Mass/Vol] 0.67 mg/dL 0.55-1.02 [facility] GFR/1.73 sq M.predicted MDRD (S/P/Bld) [Vol rate/Area] mL/min/{1.73_m2} >=60 mL/min/1.7 3m 2 [facility] Glucose [Mass/Vol] 88 mg/dL 74-106 [facility] Potassium [Moles/Vol] 3.9 mmol/L 3.5-5.1 [facility] Protein [Mass/Vol] 7.5 g/dL 6.4-8.2 [facility] Sodium [Moles/Vol] 144 mmol/L 136-145 [facility] Triglyceride [Mass/Vol] 70 mg/dL <=150 [facility] Urea nitrogen [Mass/Vol] 19.0 mg/dL High 7.0-18.0 [facility] Urea nitrogen/Creatinine [Mass ratio] 28.4 mg/mg [facility] Laboratory - Hematology and Cell countsOrdered By: Sandro Chin on 12-25-2024 Immature granulocytes/100 WBC (Bld) 0.2 % 0.0-0.5 [facility] Leukocytes [#/volume] correc audrey for nucleated erythrocytes in Blood by Automated counOrdered By: Sandro Chin on 12-25-2024 WBC corrected for nucl RBC Auto (Bld) [#/Vol] 4.8 10 3/uL 4.0-11.0 [facility] Lymphocytes Auto (Bld) [#/Vo l]Ordered By: Sandro Chin on 12-25-2024 Lymphocytes (Bld) [#/Vol] 1.7 10 3/uL 1.2-3.8 [facility] Lymphocytes/100 WBC Auto (Bl d)Ordered By: Sandro Chin on 12-25-2024 Lymphocytes/100 WBC (Bld) 36.1 % 20.5-60.0 [facility] MCH Auto (RBC) [Entitic mass ]Ordered By: Sandro Chin on 12-25-2024 MCH (RBC) [Entitic mass] 31.8 pg 26.7-34.0 [facility] MCHC Auto (RBC) [Mass/Vol]Or dered By: Sandro Chin on 12-25-2024 MCHC (RBC) [Mass/Vol] 33.3 g/dL 29.9-35.2 [facility] MCV Auto (RBC) [Entitic vol] Ordered By: Sandro Chin on 12-25-2024 MCV (RBC) [Entitic vol] 95.7 fL 81.0-99.0 [facility] Monocytes Auto (Bld) [#/Vol] Ordered By: Sandro Chin on 12-25-2024 Monocytes (Bld) [#/Vol] 0.3 10 3/uL 0.3-0.8 [facility] Monocytes/100 WBC Auto (Bld) Ordered By: Sandro Chin on 12-25-2024 Monocytes/100 WBC (Bld) 6.8 % 1.7-12.0 [facility] Neutrophils Auto (Bld) [#/Vo l]Ordered By: Sandro Chin on 12-25-2024 Neutrophils (Bld) [#/Vol] 2.6 10 3/uL 1.4-6.5 [facility] Neutrophils/100 WBC Auto (Bl d)Ordered By: Sandro Chin on 12-25-2024 Neutrophils/100 WBC (Bld) 54.6 % 43.0-75.0 [facility] No Panel InformationOrdered By: Sandro Chin on 12-25-2024 Eosinophils # (Auto) 0.1 10 3/uL 0.0-0.7 [facility] Immature Granulocyte # (Auto) 0.01 10 3/uL 0.00-0.03 [facility] Platelet mean volume Auto (B ld) [Entitic vol]Ordered By: Sandro Chin on 12-25-2024 Platelet mean volume (Bld) [Entitic vol] 10.9 fL 9.5-13.5 [facility] Platelets Auto (Bld) [#/Vol] Ordered By: Sandro Chin on 12-25-2024 Platelets (Bld) [#/Vol] 210 10 3/uL 150-450 [facility] RBC Auto (Bld) [#/Vol]Ordere d By: Sandro Chin on 12-25-2024 RBC (Bld) [#/Vol] 4.37 10 6/uL 4.20-5.40 [facility] Serum or plasma albumin/glob ulin mass ratioOrdered By: Sandro Chin on 12-25-2024 Albumin/Globulin [Mass ratio] 1.1 {ratio} [facility] Serum or plasma anion gap de terminationOrdered By: Sandro Chin on 12-25-2024 Anion gap [Moles/Vol] 13.3 mmol/L [facility] Serum or plasma total choles terol/high density lipoprotein (HDL) cholesterol mass ratOrdered By: Sandro Chin on 12-25-2024 Cholesterol.total/Chol esterol in HDL [Mass ratio] 4.6 {ratio} [facility] Comment on above: 3.3 - 4.4 LOW RISK4. 4 - 7.1 AVERAGE RISK7.1 - 11.0 MODERATE RISK>11.0 HIGH RISK Chlamydia trachomatis rRNA [ Presence] in Cervix by MARIVEL with probe detectionOrdered By: Sandro Chin on 12-20-2024 C. trachomatis rRNA MARIVEL+probe Ql (Cvx) Negative Negative [facility] Neisseria gonorrhoeae rRNA [ Presence] in Cervix by MARIVEL with probe detectionOrdered By: Sandro Chin on 12-20-2024 N. gonorrhoeae rRNA MARIVEL+probe Ql (Cvx) Negative Negative [facility] Comment on above: Performed at: WB - [facility] [address] [id number] Director: Che Swenson MD, Phone: [phone] at: =G - [facility] [address] [id number] Director: Che Swenson MD, Phone: [phone] No Panel InformationOrdered By: Sandro Chin on 12-20-2024 IG Pap w/Ct-Ng & HPV (Off-Site) Note . [facility] Comment on above: TESTS RESULT FLAG UN ITS REF RANGE LAB Clinician Provided Cytology Information No. of containers..01 ThinPrep VialDIAGNOSIS: 01 NEGATIVE FOR INTRAEPITHELIAL LESION OR MALIGNANCY. CELLULAR CHANGES ASSOCIATED WITH ATROPHY AND INFLAMMATION ARE PRESENT.Specimen adequacy: 01 Satisfactory for evaluation. Endocervical component may not be distinguished in cases of atrophy.Performed by: 01 Nella Hines Crop Research Scientist ([employer]). 01Note: Note 01 The Pap smear is a screening test designed to aid in the detection of premalignant and malignant conditions of the uterine cervix. It is not a diagnostic procedure and should not be used as the sole means of detecting cervical cancer. Both false-positive and false-negative reports do occur.Test Methodology: Note 01 [employer]R) Slurry Tank Tender was unable to read this specimen. Therefore a manual review was performed.. 01 The HPV DNA reflex criteria were not met with this specimen result therefore, no HPV testing was performed. ------- FLAG LEGEND: L-Low Normal,H-High Normal,LL-Alert Low,HH-Alert High <-Panic Low,>-Panic High,A-Abnormal,AA-Critical Abnormal -----Performed at:[address] [id number] Che Swenson MD, Pap IG, CtNg, rfx HPV Aptima on 12-20-2024 PAP Chlamydia MARIVEL Negative Normal Negative [facility] Comment on above: Performed By: #### P AP #### [facility] , PAP Gonococcus Negative Normal Negative [facility] Comment on above: Result Comment: Perf ormed at: WB - [facility] [address] [id number] Insole Stiffener: Che Swenson MD, Phone: [phone] Performed at: =G - [facility] [address] [id number] Insole Stiffener: Che Swenson MD, Phone: [phone] PERFORMED BY: [address] [facility] [address] PATHOLOGIST APPLICATION DEVELOPER MANAGER CECY RODRIGUEZ M.D. Performed By: #### P AP #### [facility] , Pap IG Note Normal . [facility] Comment on above: Result Comment: TEST S RESULT FLAG UNITS REF RANGE LAB Clinician Provided Cytology Information No. of containers..01 ThinPrep Vial DIAGNOSIS: 01 NEGATIVE FOR INTRAEPITHELIAL LESION OR MALIGNANCY. CELLULAR CHANGES ASSOCIATED WITH ATROPHY AND INFLAMMATION ARE PRESENT. Specimen adequacy: 01 Satisfactory for evaluation. Endocervical component may not be distinguished in cases of atrophy. Performed by: 01 Nella Hines, Crop Research Scientist ([facility]) . 01 Note: Note 01 The Pap smear is a screening test designed to aid in the detection of premalignant and malignant conditions of the uterine cervix. It is not a diagnostic procedure and should not be used as the sole means of detecting cervical cancer. Both false-positive and false-negative reports do occur. Test Methodology: Note 01 [employer]) Slurry Tank Tender was unable to read this specimen. Therefore a manual review was performed. . 01 The HPV DNA reflex criteria were not met with this specimen result therefore, no HPV testing was performed. FLAG LEGEND: L-Low Normal,H-High Normal,LL-Alert Low,HH-Alert High <-Panic Low,>-Panic High,A-Abnormal,AA-Critical Abnormal Performed at: 01 WB [facility] [address] [place] [address] Che Swenson MD, Performed By: #### P AP [id number] #### [facility] , Basophils Auto (Bld) [#/Vol] on 08-24-2024 Basophils (Bld) [#/Vol] Automated basophil count 0.0-0.[address] [facility] Basophils/100 WBC Auto (Bld) on 08-24-2024 Basophils/100 WBC (Bld) Automated basophil % 0.2-2.0 [facility] Eosinophils/100 WBC Auto (Bl d)on 08-24-2024 Eosinophils/100 WBC (Bld) Automated eosinophil % 0.9-7.0 [facility] Erythrocyte distribution wid th Auto (RBC) [Ratio]on 08-24-2024 Erythrocyte distribution width (RBC) [Ratio] Erythrocyte distribution width [Ratio] by Automated count 11.0-15.0 [facility] Estimated glomerular filtrat ion rate (GFR) non- Americanon 08-24-2024 GFR/1.73 sq M.predicted among non-blacks MDRD (S/P/Bld) [Vol rate/Area] Estimated glomerular filtration rate (GFR) non- >=60 mL/min/1.7 3m 2 [facility] Globulin Calc (S) [Mass/Vol] on 08-24-2024 Globulin (S) [Mass/Vol] Serum globulin measurement by calculation (mass/volume) [facility] Hematocrit Auto (Bld) [Volum e fraction]on 08-24-2024 Hematocrit (Bld) [Volume fraction] Hematocrit [Volume Fraction] of Blood by Automated count 36.0-48.0 [facility] Hemoglobin [Mass/volume] in Bloodon 08-24-2024 Hemoglobin (Bld) [Mass/Vol] Hemoglobin [Mass/volume] in Blood 12.0-16.0 [facility] Laboratory - Chemistry and C hemistry - challengeon 08-24-2024 Albumin [Mass/Vol] 3.9 g/dL 3.4-5.0 [facility] ALP [Catalytic activity/Vol] 75 U/L 46-116 [facility] ALT [Catalytic activity/Vol] 20 U/L 14-59 [facility] AST [Catalytic activity/Vol] 20 U/L 15-37 [facility] Bilirubin [Mass/Vol] 0.6 mg/dL 0.2-1.0 [facility] Calcium [Mass/Vol] 9.3 mg/dL 8.5-10.1 [facility] Chloride [Moles/Vol] 103 mmol/L 98-107 [facility] CO2 [Moles/Vol] 27.7 mmol/L 21.0-32.0 [facility] Creatinine [Mass/Vol] 0.69 mg/dL 0.55-1.02 [facility] GFR/1.73 sq M.predicted MDRD (S/P/Bld) [Vol rate/Area] mL/min/{1.73_m2} >=60 mL/min/1.7 3m 2 [facility] Glucose [Mass/Vol] 106 mg/dL 74-106 [facility] Potassium [Moles/Vol] 4.2 mmol/L 3.5-5.1 [facility] Protein [Mass/Vol] 7.4 g/dL 6.4-8.2 [facility] Sodium [Moles/Vol] 135 mmol/L Low 136-145 [facility] Urea nitrogen [Mass/Vol] 11.0 mg/dL 7.0-18.0 [facility] Urea nitrogen/Creatinine [Mass ratio] 15.9 mg/mg [facility] Laboratory - Hematology and Cell countson 08-24-2024 Immature granulocytes/100 WBC (Bld) 0.2 % 0.0-0.5 [facility] Leukocytes [#/volume] correc audrey for nucleated erythrocytes in Blood by Automated counon 08-24-2024 WBC corrected for nucl RBC Auto (Bld) [#/Vol] Leukocytes [#/volume] corrected for nucleated erythrocytes in Blood by Automated coun 4.0-11.0 [facility] Lymphocytes Auto (Bld) [#/Vo l]on 08-24-2024 Lymphocytes (Bld) [#/Vol] Lymphocytes [#/volume] in Blood by Automated count 1.2-3.8 [facility] Lymphocytes/100 WBC Auto (Bl d)on 08-24-2024 Lymphocytes/100 WBC (Bld) Lymphocytes/100 leukocytes in Blood by Automated count 20.5-60.0 [facility] MCH Auto (RBC) [Entitic mass ]on 08-24-2024 MCH (RBC) [Entitic mass] MCH [Entitic mass] by Automated count 26.7-34.0 [facility] MCHC Auto (RBC) [Mass/Vol]on 08-24-2024 MCHC (RBC) [Mass/Vol] MCHC [Mass/volume] by Automated count 29.9-35.2 [facility] MCV Auto (RBC) [Entitic vol] on 08-24-2024 MCV (RBC) [Entitic vol] MCV [Entitic volume] by Automated count 81.0-99.0 [facility] Monocytes Auto (Bld) [#/Vol] on 08-24-2024 Monocytes (Bld) [#/Vol] Automated blood monocyte count 0.3-0.8 [facility] Monocytes/100 WBC Auto (Bld) on 08-24-2024 Monocytes/100 WBC (Bld) Automated monocyte % 1.7-12.0 [facility] Neutrophils Auto (Bld) [#/Vo l]on 08-24-2024 Neutrophils (Bld) [#/Vol] Neutrophils [#/volume] in Blood by Automated count 1.4-6.5 [facility] Neutrophils/100 WBC Auto (Bl d)on 08-24-2024 Neutrophils/100 WBC (Bld) Automated neutrophil % 43.0-75.0 [facility] No Panel Informationon 08-24 Eosinophils # (Auto) 0.1 10 3/uL 0.0-0.7 [facility] Immature Granulocyte # (Auto) 0.01 10 3/uL 0.00-0.03 [facility] Platelet mean volume Auto (B ld) [Entitic vol]on 08-24-2024 Platelet mean volume (Bld) [Entitic vol] Platelet mean volume [Entitic volume] in Blood by Automated count 9.5-13.5 [facility] Platelets Auto (Bld) [#/Vol] on 08-24-2024 Platelets (Bld) [#/Vol] Platelets [#/volume] in Blood by Automated count 150-450 [facility] RBC Auto (Bld) [#/Vol]on RBC (Bld) [#/Vol] Erythrocytes [#/volu me] in Blood by Automated count 4.20-5.40 [facility] Serum or plasma albumin/glob ulin mass ratioon 08-24-2024 Albumin/Globulin [Mass ratio] Serum or plasma albumin/globulin mass ratio [facility] Serum or plasma anion gap de terminationon 08-24-2024 Anion gap [Moles/Vol] Serum or plasma an ion gap determination [facility] Basophils Auto (Bld) [#/Vol] on 01-15-2024 Basophils (Bld) [#/Vol] 0.1 10 3/uL 0.0-0.1 [facility] Basophils/100 WBC Auto (Bld) on 01-15-2024 Basophils/100 WBC (Bld) 1.0 % 0.2-2.0 [facility] Eosinophils/100 WBC Auto (Bl d)on 01-15-2024 Eosinophils/100 WBC (Bld) 1.8 % 0.9-7.0 [facility] Erythrocyte distribution wid th Auto (RBC) [Ratio]on 01-15-2024 Erythrocyte distribution width (RBC) [Ratio] 13.1 % 11.0-15.0 [facility] Estimated glomerular filtrat ion rate (GFR) non- Americanon 01-15-2024 GFR/1.73 sq M.predicted among non-blacks MDRD (S/P/Bld) [Vol rate/Area] mL/min/{1.73_m2} >=60 [facility] Globulin Calc (S) [Mass/Vol] on 01-15-2024 Globulin (S) [Mass/Vol] 3.6 g/dL [facility] Hematocrit Auto (Bld) [Volum e fraction]on 01-15-2024 Hematocrit (Bld) [Volume fraction] 42.6 % 36.0-48.0 [facility] Hemoglobin [Mass/volume] in Bloodon 01-15-2024 Hemoglobin (Bld) [Mass/Vol] 13.7 g/dL 12.0-16.0 [facility] Laboratory - Chemistry and C hemistry - challengeon 01-15-2024 Albumin [Mass/Vol] 4.0 g/dL 3.4-5.0 [facility] ALP [Catalytic activity/Vol] 90 U/L 46-116 [facility] ALT [Catalytic activity/Vol] 22 U/L 14-59 [facility] AST [Catalytic activity/Vol] 21 U/L 15-37 [facility] Bilirubin [Mass/Vol] 0.6 mg/dL 0.2-1.0 [facility] Calcium [Mass/Vol] 9.6 mg/dL 8.5-10.1 [facility] Chloride [Moles/Vol] 102 mmol/L 98-107 [facility] CO2 [Moles/Vol] 26.2 mmol/L 21.0-32.0 [facility] Creatinine [Mass/Vol] 0.60 mg/dL 0.55-1.02 [facility] GFR/1.73 sq M.predicted MDRD (S/P/Bld) [Vol rate/Area] mL/min/{1.73_m2} >=60 [facility] Glucose [Mass/Vol] 107 mg/dL High 74-106 [facility] Potassium [Moles/Vol] 4.2 mmol/L 3.5-5.1 [facility] Protein [Mass/Vol] 7.6 g/dL 6.4-8.2 [facility] Sodium [Moles/Vol] 136 mmol/L 136-145 [facility] Urea nitrogen [Mass/Vol] 13.0 mg/dL 7.0-18.0 [facility] Urea nitrogen/Creatinine [Mass ratio] 21.7 mg/mg [facility] Laboratory - Hematology and Cell countson 01-15-2024 Immature granulocytes/100 WBC (Bld) 0.2 % 0.0-0.5 [facility] Leukocytes [#/volume] correc audrey for nucleated erythrocytes in Blood by Automated counon 01-15-2024 WBC corrected for nucl RBC Auto (Bld) [#/Vol] 5.0 10 3/uL 4.0-11.0 [facility] Lymphocytes Auto (Bld) [#/Vo l]on 01-15-2024 Lymphocytes (Bld) [#/Vol] 2.0 10 3/uL 1.2-3.8 [facility] Lymphocytes/100 WBC Auto (Bl d)on 01-15-2024 Lymphocytes/100 WBC (Bld) 39.4 % 20.5-60.0 [facility] MCH Auto (RBC) [Entitic mass ]on 01-15-2024 MCH (RBC) [Entitic mass] 32.2 pg 26.7-34.0 [facility] MCHC Auto (RBC) [Mass/Vol]on 01-15-2024 MCHC (RBC) [Mass/Vol] 32.2 g/dL 29.9-35.2 [facility] MCV Auto (RBC) [Entitic vol] on 01-15-2024 MCV (RBC) [Entitic vol] 100.0 fL High 81.0-99.0 [facility] Monocytes Auto (Bld) [#/Vol] on 01-15-2024 Monocytes (Bld) [#/Vol] 0.5 10 3/uL 0.3-0.8 [facility] Monocytes/100 WBC Auto (Bld) on 01-15-2024 Monocytes/100 WBC (Bld) 9.1 % 1.7-12.0 [facility] Neutrophils Auto (Bld) [#/Vo l]on 01-15-2024 Neutrophils (Bld) [#/Vol] 2.4 10 3/uL 1.4-6.5 [facility] Neutrophils/100 WBC Auto (Bl d)on 01-15-2024 Neutrophils/100 WBC (Bld) 48.5 % 43.0-75.0 [facility] No Panel Informationon 01-14 Eosinophils # (Auto) 0.1 10 3/uL 0.0-0.7 [facility] Immature Granulocyte # (Auto) 0.01 10 3/uL 0.00-0.03 [facility] Platelet mean volume Auto (B ld) [Entitic vol]on 01-15-2024 Platelet mean volume (Bld) [Entitic vol] 10.9 fL 9.5-13.5 [facility] Platelets Auto (Bld) [#/Vol] on 01-15-2024 Platelets (Bld) [#/Vol] 197 10 3/uL 150-450 [facility] RBC Auto (Bld) [#/Vol]on RBC (Bld) [#/Vol] 4.26 10 6/uL 4.20-5.40 [facility] Serum or plasma albumin/glob ulin mass ratioon 01-15-2024 Albumin/Globulin [Mass ratio] 1.1 {ratio} [facility] Serum or plasma anion gap de terminationon 01-15-2024 Anion gap [Moles/Vol] 12.0 mmol/L [facility] Basophils Auto (Bld) [#/Vol] on 11-26-2023 Basophils (Bld) [#/Vol] 0.0 10 3/uL 0.0-0.1 [facility] Basophils/100 WBC Auto (Bld) on 11-26-2023 Basophils/100 WBC (Bld) 0.9 % 0.2-2.0 [facility] Cholesterol in LDL Calc [Mas s/Vol]on 11-26-2023 Cholesterol in LDL [Mass/Vol] 179.0 mg/dL [facility] Comment on above: <100 mg/dl [id number] 0-129 mg/dl NEAR OR ABOVE [id number] mg/dl BORDERLINE [id number] mg/dl HIGH>190 mg/dl VERY HIGH Cholesterol in VLDL Calc [Ma ss/Vol]on 11-26-2023 Cholesterol in VLDL [Mass/Vol] 28.0 mg/dL [facility] Eosinophils/100 WBC Auto (Bl d)on 11-26-2023 Eosinophils/100 WBC (Bld) 2.4 % 0.9-7.0 [facility] Erythrocyte distribution wid th Auto (RBC) [Ratio]on 11-26-2023 Erythrocyte distribution width (RBC) [Ratio] 13.2 % 11.0-15.0 [facility] Estimated glomerular filtrat ion rate (GFR) non- Americanon 11-26-2023 GFR/1.73 sq M.predicted among non-blacks MDRD (S/P/Bld) [Vol rate/Area] mL/min/{1.73_m2} >=60 [facility] Globulin Calc (S) [Mass/Vol] on 11-26-2023 Globulin (S) [Mass/Vol] 3.5 g/dL [facility] Glucose mean value [Mass/vol ume] in Blood Estimated from glycated hemoglobinon 11-26-2023 Average glucose Estimated from glycated hemoglobin (Bld) [Mass/Vol] 94 mg/dL [facility] Hematocrit Auto (Bld) [Volum e fraction]on 11-26-2023 Hematocrit (Bld) [Volume fraction] 41.5 % 36.0-48.0 [facility] Hemoglobin [Mass/volume] in Bloodon 11-26-2023 Hemoglobin (Bld) [Mass/Vol] 13.4 g/dL 12.0-16.0 [facility] Laboratory - Chemistry and C hemistry - challengeon 11-26-2023 Albumin [Mass/Vol] 3.9 g/dL 3.4-5.0 [facility] ALP [Catalytic activity/Vol] 101 U/L 46-116 [facility] ALT [Catalytic activity/Vol] 29 U/L 14-59 [facility] AST [Catalytic activity/Vol] 19 U/L 15-37 [facility] Bilirubin [Mass/Vol] 0.5 mg/dL 0.2-1.0 [facility] Calcium [Mass/Vol] 9.5 mg/dL 8.5-10.1 [facility] Chloride [Moles/Vol] 105 mmol/L 98-107 [facility] Cholesterol [Mass/Vol] 250 mg/dL High <=200 [facility] Cholesterol in HDL [Mass/Vol] 43 mg/dL 40-60 [facility] Comment on above: > or =60 mg/dl - LOW CARDIOVASCULAR RISK<40 mg/dl - HIGH CARDIOVASCULAR RISK CO2 [Moles/Vol] 28.5 mmol/L 21.0-32.0 [facility] Creatinine [Mass/Vol] 0.57 mg/dL 0.55-1.02 [facility] GFR/1.73 sq M.predicted MDRD (S/P/Bld) [Vol rate/Area] mL/min/{1.73_m2} >=60 [facility] Glucose [Mass/Vol] 100 mg/dL 74-106 [facility] Potassium [Moles/Vol] 4.0 mmol/L 3.5-5.1 [facility] Protein [Mass/Vol] 7.4 g/dL 6.4-8.2 [facility] Sodium [Moles/Vol] 142 mmol/L 136-145 [facility] Triglyceride [Mass/Vol] 140 mg/dL <=150 [facility] TSH Qn 1.818 m[IU]/L 0.358-3.74 0 [facility] Urea nitrogen [Mass/Vol] 16.0 mg/dL 7.0-18.0 [facility] Urea nitrogen/Creatinine [Mass ratio] 28.1 mg/mg [facility] Laboratory - Hematology and Cell countson 11-26-2023 HbA1c (Bld) [Mass fraction] 4.9 % 4.5-6.2 [facility] Comment on above: ADA RECOMMENDED LIMI T 4.0 - 6.0ADA THERAPEUTIC TARGET < 7.0ACTION SUGGESTED> 7.0 Immature granulocytes/100 WBC (Bld) 0.2 % 0.0-0.5 [facility] Leukocytes [#/volume] correc audrey for nucleated erythrocytes in Blood by Automated counon 11-26-2023 WBC corrected for nucl RBC Auto (Bld) [#/Vol] 4.6 10 3/uL 4.0-11.0 [facility] Lymphocytes Auto (Bld) [#/Vo l]on 11-26-2023 Lymphocytes (Bld) [#/Vol] 2.1 10 3/uL 1.2-3.8 [facility] Lymphocytes/100 WBC Auto (Bl d)on 11-26-2023 Lymphocytes/100 WBC (Bld) 44.7 % 20.5-60.0 [facility] MCH Auto (RBC) [Entitic mass ]on 11-26-2023 MCH (RBC) [Entitic mass] 31.5 pg 26.7-34.0 [facility] MCHC Auto (RBC) [Mass/Vol]on 11-26-2023 MCHC (RBC) [Mass/Vol] 32.3 g/dL 29.9-35.2 [facility] MCV Auto (RBC) [Entitic vol] on 11-26-2023 MCV (RBC) [Entitic vol] 97.4 fL 81.0-99.0 [facility] Monocytes Auto (Bld) [#/Vol] on 11-26-2023 Monocytes (Bld) [#/Vol] 0.4 10 3/uL 0.3-0.8 [facility] Monocytes/100 WBC Auto (Bld) on 11-26-2023 Monocytes/100 WBC (Bld) 8.5 % 1.7-12.0 [facility] Neutrophils Auto (Bld) [#/Vo l]on 11-26-2023 Neutrophils (Bld) [#/Vol] 2.0 10 3/uL 1.4-6.5 [facility] Neutrophils/100 WBC Auto (Bl d)on 11-26-2023 Neutrophils/100 WBC (Bld) 43.3 % 43.0-75.0 [facility] No Panel Informationon 11-25 Eosinophils # (Auto) 0.1 10 3/uL 0.0-0.7 [facility] Immature Granulocyte # (Auto) 0.01 10 3/uL 0.00-0.03 [facility] Platelet mean volume Auto (B ld) [Entitic vol]on 11-26-2023 Platelet mean volume (Bld) [Entitic vol] 11.4 fL 9.5-13.5 [facility] Platelets Auto (Bld) [#/Vol] on 11-26-2023 Platelets (Bld) [#/Vol] 210 10 3/uL 150-450 [facility] RBC Auto (Bld) [#/Vol]on RBC (Bld) [#/Vol] 4.26 10 6/uL 4.20-5.40 [facility] Serum or plasma albumin/glob ulin mass ratioon 11-26-2023 Albumin/Globulin [Mass ratio] 1.1 {ratio} [facility] Serum or plasma anion gap de terminationon 11-26-2023 Anion gap [Moles/Vol] 12.5 mmol/[facility] or plasma total choles terol/high density lipoprotein (HDL) cholesterol mass johan 11-26-2023 Cholesterol.total/Chol esterol in HDL [Mass ratio] 5.8 {ratio} [facility] Comment on above: 3.3 - 4.4 LOW RISK4. 4 - 7.1 AVERAGE RISK7.1 - 11.0 MODERATE RISK>11.0 HIGH RISK Basophils Auto (Bld) [#/Vol] on 09-18-2023 Basophils (Bld) [#/Vol] 0.1 10 3/uL 0.0-0.1 [facility] Basophils/100 WBC Auto (Bld) on 09-18-2023 Basophils/100 WBC (Bld) 1.1 % 0.2-2.0 [facility] Eosinophils/100 WBC Auto (Bl d)on 09-18-2023 Eosinophils/100 WBC (Bld) 2.2 % 0.9-7.0 [facility] Erythrocyte distribution wid th Auto (RBC) [Ratio]on 09-18-2023 Erythrocyte distribution width (RBC) [Ratio] 12.2 % 11.0-15.0 [facility] Estimated glomerular filtrat ion rate (GFR) non- Americanon 09-18-2023 GFR/1.73 sq M.predicted among non-blacks MDRD (S/P/Bld) [Vol rate/Area] mL/min/{1.73_m2} >=60 [facility] Globulin Calc (S) [Mass/Vol] on 09-18-2023 Globulin (S) [Mass/Vol] 3.3 g/dL [facility] Hematocrit Auto (Bld) [Volum e fraction]on 09-18-2023 Hematocrit (Bld) [Volume fraction] 42.5 % 36.0-48.0 [facility] Hemoglobin [Mass/volume] in Bloodon 09-18-2023 Hemoglobin (Bld) [Mass/Vol] 13.5 g/dL 12.0-16.0 [facility] Laboratory - Chemistry and C hemistry - challengeon 09-18-2023 Albumin [Mass/Vol] 3.8 g/dL 3.4-5.0 [facility] ALP [Catalytic activity/Vol] 89 U/L 46-116 [facility] ALT [Catalytic activity/Vol] 26 U/L 14-59 [facility] AST [Catalytic activity/Vol] 19 U/L 15-37 [facility] Bilirubin [Mass/Vol] 0.4 mg/dL 0.2-1.0 [facility] Calcium [Mass/Vol] 8.9 mg/dL 8.5-10.1 [facility] Chloride [Moles/Vol] 105 mmol/L 98-107 [facility] CO2 [Moles/Vol] 29.0 mmol/L 21.0-32.0 [facility] Creatinine [Mass/Vol] 0.71 mg/dL 0.55-1.02 [facility] GFR/1.73 sq M.predicted MDRD (S/P/Bld) [Vol rate/Area] mL/min/{1.73_m2} >=60 [facility] Glucose [Mass/Vol] 84 mg/dL 74-106 [facility] Potassium [Moles/Vol] 4.2 mmol/L 3.5-5.1 [facility] Protein [Mass/Vol] 7.1 g/dL 6.4-8.2 [facility] Sodium [Moles/Vol] 142 mmol/L 136-145 [facility] Urea nitrogen [Mass/Vol] 13.0 mg/dL 7.0-18.0 [facility] Urea nitrogen/Creatinine [Mass ratio] 18.3 mg/mg [facility] Laboratory - Hematology and Cell countson 09-18-2023 Immature granulocytes/100 WBC (Bld) 0.2 % 0.0-0.5 [facility] Leukocytes [#/volume] correc audrey for nucleated erythrocytes in Blood by Automated counon 09-18-2023 WBC corrected for nucl RBC Auto (Bld) [#/Vol] 4.6 10 3/uL 4.0-11.0 [facility] Lymphocytes Auto (Bld) [#/Vo l]on 09-18-2023 Lymphocytes (Bld) [#/Vol] 2.6 10 3/uL 1.2-3.8 [facility] Lymphocytes/100 WBC Auto (Bl d)on 09-18-2023 Lymphocytes/100 WBC (Bld) 56.8 % 20.5-60.0 [facility] MCH Auto (RBC) [Entitic mass ]on 09-18-2023 MCH (RBC) [Entitic mass] 31.5 pg 26.7-34.0 [facility] MCHC Auto (RBC) [Mass/Vol]on 09-18-2023 MCHC (RBC) [Mass/Vol] 31.8 g/dL 29.9-35.2 [facility] MCV Auto (RBC) [Entitic vol] on 09-18-2023 MCV (RBC) [Entitic vol] 99.1 fL 81.0-99.0 [facility] Monocytes Auto (Bld) [#/Vol] on 09-18-2023 Monocytes (Bld) [#/Vol] 0.4 10 3/uL 0.3-0.8 [facility] Monocytes/100 WBC Auto (Bld) on 09-18-2023 Monocytes/100 WBC (Bld) 8.2 % 1.7-12.0 [facility] Neutrophils Auto (Bld) [#/Vo l]on 09-18-2023 Neutrophils (Bld) [#/Vol] 1.5 10 3/uL 1.4-6.5 [facility] Neutrophils/100 WBC Auto (Bl d)on 09-18-2023 Neutrophils/100 WBC (Bld) 31.5 % 43.0-75.0 [facility] No Panel Informationon 09-17 Eosinophils # (Auto) 0.1 10 3/uL 0.0-0.7 [facility] Immature Granulocyte # (Auto) 0.01 10 3/uL 0.00-0.03 [facility] Platelet mean volume Auto (B ld) [Entitic vol]on 09-18-2023 Platelet mean volume (Bld) [Entitic vol] 11.1 fL 9.5-13.5 [facility] Platelets Auto (Bld) [#/Vol] on 09-18-2023 Platelets (Bld) [#/Vol] 196 10 3/uL 150-450 [facility] RBC Auto (Bld) [#/Vol]on RBC (Bld) [#/Vol] 4.29 10 6/uL 4.20-5.40 [facility] Serum or plasma albumin/glob ulin mass ratioon 09-18-2023 Albumin/Globulin [Mass ratio] 1.2 {ratio} [facility] Serum or plasma anion gap de terminationon 09-18-2023 Anion gap [Moles/Vol] 12.2 mmol/L [facility] Alanine aminotransferase [En zymatic activity/volume] in Serum or PlasmaOrdered By: Isaías Jordan on 03-20-2023 ALT [Catalytic activity/Vol] 16 U/L [facility] ALT [Catalytic activity/Vol] Alanine aminotransferase [Enzymatic activity/volume] in Serum or Plasma [facility] Albumin [Mass/volume] in Ser um or Plasma by Bromocresol green (BCG) dye binding methoOrdered By: Isaías Jordan on 03-20-2023 Albumin BCG dye [Mass/Vol] 4.4 g/dL 3.5-5.7 [facility] Albumin BCG dye [Mass/Vol] Albumin [Mass/volume] in Serum or Plasma by Bromocresol green (BCG) dye binding metho 3.5-5.7 [facility] Alkaline phosphatase [Enzyma tic activity/volume] in Serum or PlasmaOrdered By: Isaías Jordan on 03-20-2023 ALP [Catalytic activity/Vol] 88 U/L 104 [facility] ALP [Catalytic activity/Vol] Alkaline phosphatase [Enzymatic activity/volume] in Serum or Plasma 104 [facility] Aspartate aminotransferase [ Enzymatic activity/volume] in Serum or PlasmaOrdered By: Isaías Jordan on 03-20-2023 AST [Catalytic activity/Vol] 21 U/L 39 [facility] AST [Catalytic activity/Vol] Aspartate aminotransferase [Enzymatic activity/volume] in Serum or Plasma 39 [facility] Basophils Auto (Bld) [#/Vol] Ordered By: Isaías Jordan on 03-20-2023 Basophils (Bld) [#/Vol] 0.1 10*3/uL 0.0-0.2 [facility] Basophils (Bld) [#/Vol] Automated basophil count 0.0-0.[address] [facility] Basophils/100 WBC Auto (Bld) Ordered By: Isaías Jordan on 03-20-2023 Basophils/100 WBC (Bld) 1.2 % . [facility] Basophils/100 WBC (Bld) Automated basophil % . [facility] Bilirubin.total [Mass/volume ] in Serum or PlasmaOrdered By: Isaías Jordan on 03-20-2023 Bilirubin [Mass/Vol] 0.8 mg/dL 0.3-1.0 [facility] Bilirubin [Mass/Vol] Bilirubin.total [Mass/volume] in Serum or Plasma 0.3-1.0 [facility] Calcium [Mass/volume] in Ser um or PlasmaOrdered By: Isaías Jordan on 03-20-2023 Calcium [Mass/Vol] 10.3 mg/dL 8.6-10.3 [facility] Calcium [Mass/Vol] Calcium [Mass/volume ] in Serum or Plasma 8.6-10.3 [facility] Carbon dioxide, total [Moles /volume] in Serum or PlasmaOrdered By: Isaías Jordan on 03-20-2023 CO2 [Moles/Vol] 27.3 mmol/L 21.0-31.0 [facility] CO2 [Moles/Vol] Carbon dioxide, tota l [Moles/volume] in Serum or Plasma 21.0-31.0 [facility] Chloride [Moles/volume] in S daljit or PlasmaOrdered By: Isaías Jordan on 03-20-2023 Chloride [Moles/Vol] 105 mmol/L 98-107 [facility] Chloride [Moles/Vol] Chloride [Moles/vol ume] in Serum or Plasma 98-107 [facility] Creatinine [Mass/volume] in Serum or PlasmaOrdered By: Isaías Jordan on 03-20-2023 Creatinine [Mass/Vol] 0.73 mg/dL 0.60-1.20 [facility] Creatinine [Mass/Vol] Creatinine [Mass/v olume] in Serum or Plasma 0.60-1.20 [facility] Eosinophils Auto (Bld) [#/Vo l]Ordered By: Isaías Jordan on 03-20-2023 Eosinophils (Bld) [#/Vol] 0.1 10*3/uL 0.0-0.45 [facility] Eosinophils (Bld) [#/Vol] Automated eosinophil count 0.0-0.45 [facility] Eosinophils/100 WBC Auto (Bl d)Ordered By: Isaías Jordan on 03-20-2023 Eosinophils/100 WBC (Bld) 2.8 % . [facility] Eosinophils/100 WBC (Bld) Automated eosinophil % . [facility] Erythrocyte distribution wid th Auto (RBC) [Ratio]Ordered By: Isaías Jordan on 03-20-2023 Erythrocyte distribution width (RBC) [Ratio] 13.7 % 11.9-15.3 [facility] Erythrocyte distribution width (RBC) [Ratio] Erythrocyte distribution width [Ratio] by Automated count 11.9-15.3 [facility] Globulin Calc (S) [Mass/Vol] Ordered By: Isaías Jordan on 03-20-2023 Globulin (S) [Mass/Vol] 2.9 g/dL [facility] Globulin (S) [Mass/Vol] Serum globulin measurement by calculation (mass/volume) [facility] Glucose [Mass/volume] in Ser um or PlasmaOrdered By: Isaías Jordan on 03-20-2023 Glucose [Mass/Vol] 80 mg/dL 70-100 [facility] Comment on above: ADA recommended refe rence rangeRandom Glucose Reference Range is dependent on time and content of last meal. Glucose of more than 200 mg/dL in a nonstressed, ambulatory subject supports the diagnosis of Diabetes Mellitus. Glucose [Mass/Vol] Glucose [Mass/volume ] in Serum or Plasma 70-100 [facility] Comment on above: ADA recommended refe rence rangeRandom Glucose Reference Range is dependent on time and content of last meal. Glucose of more than 200 mg/dL in a nonstressed, ambulatory subject supports the diagnosis of Diabetes Mellitus. Hematocrit Auto (Bld) [Volum e fraction]Ordered By: Isaías Jordan on 03-20-2023 Hematocrit (Bld) [Volume fraction] 40.8 % 34.0-46.4 [facility] Hematocrit (Bld) [Volume fraction] Hematocrit [Volume Fraction] of Blood by Automated count 34.0-46.4 [facility] Hemoglobin [Mass/volume] in BloodOrdered By: Isaías Jordan on 03-20-2023 Hemoglobin (Bld) [Mass/Vol] 13.8 g/dL 11.8-15.4 [facility] Hemoglobin (Bld) [Mass/Vol] Hemoglobin [Mass/volume] in Blood 11.8-15.4 [facility] Leukocytes [#/volume] correc audrey for nucleated erythrocytes in Blood by Automated counOrdered By: Isaías Jordan on 03-20-2023 WBC corrected for nucl RBC Auto (Bld) [#/Vol] 5.1 10*3/uL 3.8-11.6 [facility] WBC corrected for nucl RBC Auto (Bld) [#/Vol] Leukocytes [#/volume] corrected for nucleated erythrocytes in Blood by Automated coun 3.8-11.6 [facility] Lymphocytes Auto (Bld) [#/Vo l]Ordered By: Isaías Jordan on 03-20-2023 Lymphocytes (Bld) [#/Vol] 2.0 10*3/uL 1.00-4.8 [facility] Lymphocytes (Bld) [#/Vol] Lymphocytes [#/volume] in Blood by Automated count 1.00-4.8 [facility] Lymphocytes/100 WBC Auto (Bl d)Ordered By: Isaías Jordan on 03-20-2023 Lymphocytes/100 WBC (Bld) 39.4 % . [facility] Lymphocytes/100 WBC (Bld) Lymphocytes/100 leukocytes in Blood by Automated count . [facility] MCH Auto (RBC) [Entitic mass ]Ordered By: Isaías Jordan on 03-20-2023 MCH (RBC) [Entitic mass] 32.3 pg 24.7-34.3 [facility] MCH (RBC) [Entitic mass] MCH [Entitic mass] by Automated count 24.7-34.3 [facility] MCHC Auto (RBC) [Mass/Vol]Or dered By: Isaías Jordan on 03-20-2023 MCHC (RBC) [Mass/Vol] 33.7 g/dL 32.0-35.0 [facility] MCHC (RBC) [Mass/Vol] MCHC [Mass/volume] by Automated count 32.0-35.0 [facility] MCV Auto (RBC) [Entitic vol] Ordered By: Isaías Jordan on 03-20-2023 MCV (RBC) [Entitic vol] 95.7 fL 80-100 [facility] MCV (RBC) [Entitic vol] MCV [Entitic volume] by Automated count 80-100 [facility] Monocytes Auto (Bld) [#/Vol] Ordered By: Isaías Jordan on 03-20-2023 Monocytes (Bld) [#/Vol] 0.5 10*3/uL 0.0-0.8 [facility] Monocytes (Bld) [#/Vol] Automated blood monocyte count 0.0-0.8 [facility] Monocytes/100 WBC Auto (Bld) Ordered By: Isaías Jordan on 03-20-2023 Monocytes/100 WBC (Bld) 9.0 % . [facility] Monocytes/100 WBC (Bld) Automated monocyte % . [facility] Neutrophils Auto (Bld) [#/Vo l]Ordered By: Isaías Jordan on 03-20-2023 Neutrophils (Bld) [#/Vol] 2.4 10*3/uL 1.8-7.7 [facility] Neutrophils (Bld) [#/Vol] Neutrophils [#/volume] in Blood by Automated count 1.8-7.7 [facility] Neutrophils/100 WBC Auto (Bl d)Ordered By: Isaías Jordan on 03-20-2023 Neutrophils/100 WBC (Bld) 47.6 % . [facility] Neutrophils/100 WBC (Bld) Automated neutrophil % . [facility] No Panel InformationOrdered By: Isaías Jordan on 03-20-2023 Estimated GFR (CKD-EPI) > 60.0 mL/Min [facility] Creatinine Clearance (Chem 86.44 [facility] Nucleated erythrocytes [Pres ence] in Blood by Automated countOrdered By: Isaías Jordan on 03-20-2023 Nucleated RBC Auto Ql (Bld) 0.1 /100{WBC} 0-0.5 [facility] Nucleated RBC Auto Ql (Bld) Nucleated erythrocytes [Presence] in Blood by Automated count 0-0.5 [facility] Platelet mean volume Auto (B ld) [Entitic vol]Ordered By: Isaías Jordan on 03-20-2023 Platelet mean volume (Bld) [Entitic vol] 8.9 fL 6.3-10.7 [facility] Platelet mean volume (Bld) [Entitic vol] Platelet mean volume [Entitic volume] in Blood by Automated count 6.3-10.7 [facility] Platelets Auto (Bld) [#/Vol] Ordered By: Isaías Jordan on 03-20-2023 Platelets (Bld) [#/Vol] 198 10*3/uL 150-450 [facility] Platelets (Bld) [#/Vol] Platelets [#/volume] in Blood by Automated count 150-450 [facility] Potassium [Moles/volume] in Serum or PlasmaOrdered By: Isaías Jordan on 03-20-2023 Potassium [Moles/Vol] 4.3 mmol/L 3.5-5.1 [facility] Potassium [Moles/Vol] Potassium [Moles/v olume] in Serum or Plasma 3.5-5.1 [facility] Protein [Mass/volume] in Ser um or PlasmaOrdered By: Isaías Jordan on 03-20-2023 Protein [Mass/Vol] 7.3 g/dL 6.4-8.9 [facility] Protein [Mass/Vol] Protein [Mass/volume ] in Serum or Plasma 6.4-8.9 [facility] RBC Auto (Bld) [#/Vol]Ordere d By: Isaías Jordan on 03-20-2023 RBC (Bld) [#/Vol] 4.26 10*6/uL 3.60-5.00 [facility] RBC (Bld) [#/Vol] Erythrocytes [#/volu me] in Blood by Automated count 3.60-5.00 [facility] Serum or plasma albumin/glob ulin mass ratioOrdered By: Isaías Jordan on 03-20-2023 Albumin/Globulin [Mass ratio] 1.5 {ratio} [facility] Albumin/Globulin [Mass ratio] Serum or plasma albumin/globulin mass ratio [facility] Serum or plasma anion gap de terminationOrdered By: Isaías Jordan on 03-20-2023 Anion gap [Moles/Vol] 11.0 mmol/L 6.0-15.0 [facility] Anion gap [Moles/Vol] Serum or plasma an ion gap determination 6.0-15.0 [facility] Serum or plasma carcinoembry onic antigen measurement (mass/volume)Ordered By: Isaías Jordan on 03-20-2023 Carcinoembryonic Ag [Mass/Vol] 3.3 ng/mL High 0.0-3.0 [facility] Carcinoembryonic Ag [Mass/Vol] Serum or plasma carcinoembryonic antigen measurement (mass/volume) High 0.0-3.0 [facility] Sodium [Moles/volume] in Ser um or PlasmaOrdered By: Isaías Jordan on 03-20-2023 Sodium [Moles/Vol] 139 mmol/L 136-145 [facility] Sodium [Moles/Vol] Sodium [Moles/volume ] in Serum or Plasma 136-145 [facility] Urea nitrogen [Mass/volume] in Serum or PlasmaOrdered By: Isaías Jordan on 03-20-2023 Urea nitrogen [Mass/Vol] 16 mg/dL 7 [facility] Urea nitrogen [Mass/Vol] Urea nitrogen [Mass/volume] in Serum or Plasma 01-28 [facility] WBC Auto (Bld) [#/Vol]Ordere d By: Isaías Jordan on 03-20-2023 WBC (Bld) [#/Vol] 5.1 10*3/uL 3.8-11.6 [facility] WBC (Bld) [#/Vol] Leukocytes [#/volume ] in Blood by Automated count 3.8-11.6 [facility] CBC AUTO DIFFon 11-16-2022 BASO # 0.0 103/ul Normal 0.0-0.1 [facility] Comment on above: Performed By: #### C BC #### [facility] [address] [place], [place] [address] Dr. Doreen Betancourt Basophils/100 WBC (Bld) 0.6 % Normal 0.2-2.0 [facility] Comment on above: Performed By: #### C BC #### [facility] [address] [place] [address] Dr. Doreen Betancourt EO # 0.0 103/ul Normal 0.0-0.7 [facility] Comment on above: Performed By: #### C BC #### [facility] [address] [place] [address] Dr. Doreen Betancourt Eosinophils/100 WBC (Bld) 0.6 % Critically low 0.9-7.0 [facility] Comment on above: Performed By: #### C BC #### [facility] [address] [place] [address] Dr. Doreen Betancourt Erythrocyte distribution width (RBC) [Ratio] 13.7 % Normal 11.0-15.0 [facility] Comment on above: Performed By: #### C BC #### [facility] [address] [place] [address] Dr. Doreen Betancourt Hematocrit (Bld) [Volume fraction] 41.0 % Normal 36.0-48.[address] [facility] Comment on above: Performed By: #### C BC #### [facility] [address] [place] [address] Dr. Doreen Betancourt Hemoglobin (Bld) [Mass/Vol] 13.1 g/dL Normal 12.0-16.0 [facility] Comment on above: Performed By: #### C BC #### [facility] [address] [place] [address] Dr. Doreen Betancourt IG # 0.00 10e3/ul Normal 0.00-0.03 [facility] Comment on above: Performed By: #### C BC #### [facility] [address] [place] [address] Dr. Doreen Betancourt IG % 0.0 % Normal 0.0-0.5 [facility] Comment on above: Performed By: #### C BC #### [facility] [address] [place] [address] Dr. Doreen Betancourt LYMPH # 2.0 103/ul Normal 1.2-3.8 [facility] Comment on above: Performed By: #### C BC #### [facility] [address] [place] [address] Dr. Doreen Betancourt Lymphocytes/100 WBC (Bld) 55.3 % Normal 20.5-60.[address] [facility] Comment on above: Performed By: #### C BC #### [facility] [address] [place] [address] Dr. Doreen Betancourt MANUAL DIFF REQ NO Normal [facility] Comment on above: Performed By: #### C BC #### [facility] [address] [place] [address] Dr. Doreen Betancourt MCH (RBC) [Entitic mass] 33.2 pg Normal 26.7-34.[address] [facility] Comment on above: Performed By: #### C BC #### [facility] [address] [place] [address] Dr. Doreen Betancourt MCHC (RBC) [Mass/Vol] 32.0 g/dL Normal 29.9-35.[address] [facility] Comment on above: Performed By: #### C BC #### [facility] [address] [place] [address] Dr. Doreen Betancourt MCV (RBC) [Entitic vol] 104.1 fL Critically high 81.0-99.[address] [facility] Comment on above: Performed By: #### C BC #### [facility] [address] [place] [address] Dr. Doreen Betancourt MONO # 0.7 103/ul Normal 0.3-0.[address] [facility] Comment on above: Performed By: #### C BC #### [facility] [address] [place] [address] Dr. Doreen Betancourt Monocytes/100 WBC (Bld) 18.7 % Critically high 1.7-12.0 [facility] Comment on above: Performed By: #### C BC #### [facility] [address] [place] [address] Dr. Doreen Betancourt NEUT # 0.9 103/ul Critically low 1.4-6.5 [facility] Comment on above: Performed By: #### C BC #### [facility] [address] [place] [address] Dr. Doreen Betancourt Neutrophils/100 WBC (Bld) 24.8 % Critically low 43.0-75.[address] [facility] Comment on above: Performed By: #### C BC #### [facility] [address] [place] [address] Dr. Doreen Betancourt Platelet mean volume (Bld) [Entitic vol] 10.5 fL Normal 9.5-13.[address] [facility] Comment on above: Performed By: #### C BC #### [facility] [address] [place] [address] Dr. Doreen Betancourt PLT 121 103/ul Critically low 150-[address] [facility] Comment on above: Performed By: #### C BC #### [facility] [address] [place] [address] Dr. Doreen Betancourt RBC 3.94 106/ul Critically low 4.20-5.[address] [facility] Comment on above: Performed By: #### C BC #### [facility] [address] [place] [address] Dr. Doreen Betancourt WBC 3.6 103/ul Critically low 4.0-11.[address] [facility] Comment on above: Performed By: #### C BC #### [facility] [address] [place] [address] Dr. Doreen Betancourt MAGNESIUMon 11-16-2022 Magnesium [Mass/Vol] 2.0 mg/dL Normal 1.8-2.[address] [facility] Comment on above: Performed By: #### M G, CMP #### [facility] [address] [place] [address] Dr. Doreen Betancourt PROF 14(COMP METB)on 023 Albumin [Mass/Vol] 3.7 g/dL Normal 3.4-5.[address] [facility] Comment on above: Performed By: #### M G, CMP #### [facility] [address] [place] [address] Dr. Doreen Betancourt Albumin/Globulin [Mass ratio] 1.0 {ratio} Normal [facility] Comment on above: Performed By: #### M [place], CMP #### [facility] [address] [address] [address] Doreen Betancourt ALP [Catalytic activity/Vol] 161 U/L Critically high 46-[address] [facility] Comment on above: Performed By: #### M G, CMP #### [facility] [address] [place] [address] Dr. Doreen Betancourt ALT [Catalytic activity/Vol] 49 U/L Normal 14-[address] [facility] Comment on above: Performed By: #### M G, CMP #### [facility] [address] [address] [address] Doreen Betancourt Anion gap [Moles/Vol] 9.8 mmol/L Normal [facility] Comment on above: Performed By: #### M G, CMP #### [facility] [address] [place] [address] Dr. Doreen Betancourt AST [Catalytic activity/Vol] 44 U/L Critically high 15-[address] [facility] Comment on above: Performed By: #### M G, CMP #### [facility] [address] [place] [address] Dr. Doreen Betancourt Bilirubin [Mass/Vol] 0.4 mg/dL Normal 0.2-1.[address] [facility] Comment on above: Performed By: #### M G, CMP #### [facility] [address] [place] [address] Dr. Doreen Betancourt Calcium [Mass/Vol] 9.6 mg/dL Normal 8.5-10.1 [facility] Comment on above: Performed By: #### M G, CMP #### [facility] [address] [place] [address] Dr. Doreen Betancourt Chloride [Moles/Vol] 106 mmol/L Normal 98-107 [facility] Comment on above: Performed By: #### M G, CMP #### [facility] [address] [place] [address] Dr. Doreen Betancourt CO2 [Moles/Vol] 30.1 mmol/L Normal 21.0-32.0 [facility] Comment on above: Performed By: #### M G, CMP #### [facility] [address] [place] [address] Dr. Doreen Betancourt Creatinine [Mass/Vol] 0.68 mg/dL Normal 0.55-1.[address] [facility] Comment on above: Performed By: #### M G, CMP #### [facility] [address] [place] [address] Dr. Doreen Betancourt EGFR-AF TURKISH >60 Normal >=[address] [facility] Comment on above: Performed By: #### M G, CMP #### [facility] [address] [place] [address] Dr. Doreen Betancourt EGFR-NON AF TURKISH >60 Normal >=[address] [facility] Comment on above: Performed By: #### M G, CMP #### [facility] [address] [place] [address] Dr. Doreen Betancourt Globulin (S) [Mass/Vol] 3.7 g/dL Normal [facility] Comment on above: Performed By: #### M G, CMP #### [facility] [address] [place] [address] Dr. Doreen Betancourt Glucose [Mass/Vol] 107 mg/dL Critically high 74-106 [facility] Comment on above: Performed By: #### M G, CMP #### [facility] [address] [place] [address] Dr. Doreen Betancourt Potassium [Moles/Vol] 4.9 mmol/L Normal 3.5-5.1 [facility] Comment on above: Performed By: #### M G, CMP #### [facility] [address] [place] [address] Dr. Doreen Betancourt Protein [Mass/Vol] 7.4 g/dL Normal 6.4-8.2 [facility] Comment on above: Performed By: #### M G, CMP #### [facility] [address] [place] [address] Dr. Doreen Betancourt Sodium [Moles/Vol] 141 mmol/L Normal 136-[address] [facility] Comment on above: Performed By: #### M G, CMP #### [facility] [address] [place] [address] Dr. Doreen Betancourt Urea nitrogen [Mass/Vol] 11.0 mg/dL Normal 7.0-18.[address] [facility] Comment on above: Performed By: #### M G, CMP #### [facility] [address] [place] [address] Dr. Doreen Betancourt Urea nitrogen/Creatinine [Mass ratio] 16.2 mg/mg Normal [facility] Comment on above: Performed By: #### M G, CMP #### [facility] [address] [place] [address] Dr. Doreen Betancourt CBC AUTO DIFFon 11-02-2022 BASO # 0.0 103/ul Normal 0.0-0.1 [facility] Comment on above: Performed By: #### M G, CMP #### [facility] [address] [place] [address] Dr. Doreen Betancourt Basophils/100 WBC (Bld) 0.5 % Normal 0.2-2.[address] [facility] Comment on above: Performed By: #### M G, CMP #### [facility] [address] [place] [address] Dr. Doreen Betancourt EO # 0.0 103/ul Normal 0.0-0.7 [facility] Comment on above: Performed By: #### M G, CMP #### [facility] [address] [place] [address] Dr. Doreen Betancourt Eosinophils/100 WBC (Bld) 0.8 % Critically low 0.9-7.[address] [facility] Comment on above: Performed By: #### M G, CMP #### [facility] [address] [place] [address] Dr. Doreen Betancourt Erythrocyte distribution width (RBC) [Ratio] 13.2 % Normal 11.0-15.0 [facility] Comment on above: Performed By: #### M G, CMP #### [facility] [address] [place] [address] Dr. Doreen Betancourt Hematocrit (Bld) [Volume fraction] 40.7 % Normal 36.0-48.0 [facility] Comment on above: Performed By: #### Gay Martino, CMP #### [facility] [address] [place] [address] Dr. Doreen Betancourt Hemoglobin (Bld) [Mass/Vol] 13.5 g/dL Normal 12.0-16.[address] [facility] Comment on above: Performed By: #### M G, CMP #### [facility] [address] [place] [address] Dr. Doreen Betancourt IG # 0.00 10e3/ul Normal 0.00-0.03 [facility] Comment on above: Performed By: #### M G, CMP #### [facility] [address] [place] [address] Dr. Doreen Betancourt IG % 0.0 % Normal 0.0-0.5 [facility] Comment on above: Performed By: #### M G, CMP #### [facility] [address] [place] [address] Dr. Doreen Betancourt LYMPH # 1.9 103/ul Normal 1.2-3.8 [facility] Comment on above: Performed By: #### M G, CMP #### [facility] [address] [place] [address] Dr. Doreen Betancourt Lymphocytes/100 WBC (Bld) 51.8 % Normal 20.5-60.[address] [facility] Comment on above: Performed By: #### M G, CMP #### [facility] [address] [place] [address] Dr. Doreen Betancourt MANUAL DIFF REQ NO Normal [facility] Comment on above: Performed By: #### M G, CMP #### [facility] [address] [place] [address] Dr. Doreen Betancourt MCH (RBC) [Entitic mass] 34.3 pg Critically high 26.7-34.0 [facility] Comment on above: Performed By: #### M G, CMP #### [facility] [address] [place] [address] Dr. Doreen Betancourt MCHC (RBC) [Mass/Vol] 33.2 g/dL Normal 29.9-35.2 [facility] Comment on above: Performed By: #### M G, CMP #### [facility] [address] [place] [address] Dr. Doreen Betancourt MCV (RBC) [Entitic vol] 103.3 fL Critically high 81.0-99.[address] [facility] Comment on above: Performed By: #### M G, CMP #### [facility] [address] [place] [address] Dr. Doreen Betancourt MONO # 0.5 103/ul Normal 0.3-0.[address] [facility] Comment on above: Performed By: #### M G, CMP #### [facility] [address] [place] [address] Dr. Doreen Betancourt Monocytes/100 WBC (Bld) 13.9 % Critically high 1.7-12.[address] [facility] Comment on above: Performed By: #### M G, CMP #### [facility] [address] [place] [address] Dr. Doreen Betancourt NEUT # 1.2 103/ul Critically low 1.4-6.[address] [facility] Comment on above: Performed By: #### M G, CMP #### [facility] [address] [place] [address] Dr. Doreen Betancourt Neutrophils/100 WBC (Bld) 33.0 % Critically low 43.0-75.[address] [facility] Comment on above: Performed By: #### M G, CMP #### [facility] [address] [place] [address] Dr. Doreen Betancourt Platelet mean volume (Bld) [Entitic vol] 10.0 fL Normal 9.5-13.5 [facility] Comment on above: Performed By: #### M G, CMP #### [facility] [address] [place] [address] Dr. Doreen Betancourt PLT 129 103/ul Critically low 150-450 [facility] Comment on above: Performed By: #### M G, CMP #### [facility] [address] [place] [address] Dr. Doreen Betancourt RBC 3.94 106/ul Critically low 4.20-5.40 [facility] Comment on above: Performed By: #### M G, CMP #### [facility] [address] [place] [address] Dr. Doreen Betancourt WBC 3.7 103/ul Critically low 4.0-11.[address] [facility] Comment on above: Performed By: #### M G, CMP #### [facility] [address] [place] [address] Dr. Doreen Betancourt MAGNESIUMon 11-02-2022 Magnesium [Mass/Vol] 2.0 mg/dL Normal 1.8-2.[address] [facility] Comment on above: Performed By: #### M G, CMP #### [facility] [address] [place] [address] Dr. Doreen Betancourt PROF 14(COMP METB)on 023 Albumin [Mass/Vol] 3.7 g/dL Normal 3.4-5.[address] [facility] Comment on above: Performed By: #### Gay Martino, CMP #### [facility] [address] [place] [address] Dr. Doreen Betancourt Albumin/Globulin [Mass ratio] 1.0 {ratio} Normal [facility] Comment on above: Performed By: #### Gay Martino, CMP #### [facility] [address] [place] [address] Dr. Doreen Betancourt ALP [Catalytic activity/Vol] 133 U/L Critically high 46-[address] [facility] Comment on above: Performed By: #### Gay G, CMP #### [facility] [address] [place] [address] Dr. Doreen Betancourt ALT [Catalytic activity/Vol] 47 U/L Normal 14-[address] [facility] Comment on above: Performed By: #### M G, CMP #### [facility] [address] [place] [address] Dr. Doreen Betancourt Anion gap [Moles/Vol] 10.8 mmol/L Normal [facility] Comment on above: Performed By: #### M G, CMP #### [facility] [address] [place] [address] Dr. Doreen Betancourt AST [Catalytic activity/Vol] 39 U/L Critically high 15-37 [facility] Comment on above: Performed By: #### M G, CMP #### [facility] [address] [place] [address] Dr. Doreen Betancourt Bilirubin [Mass/Vol] 0.5 mg/dL Normal 0.2-1.[address] [facility] Comment on above: Performed By: #### M G, CMP #### [facility] [address] [place] [address] Dr. Doreen Betancourt Calcium [Mass/Vol] 9.4 mg/dL Normal 8.5-10.[address] [facility] Comment on above: Performed By: #### M G, CMP #### [facility] [address] [place] [address] Dr. Doreen Betancourt Chloride [Moles/Vol] 107 mmol/L Normal 98-[address] [facility] Comment on above: Performed By: #### M G, CMP #### [facility] [address] [place] [address] Dr. Doreen Betancourt CO2 [Moles/Vol] 27.7 mmol/L Normal 21.0-32.[address] [facility] Comment on above: Performed By: #### M G, CMP #### [facility] [address] [place] [address] Dr. Doreen Betancourt Creatinine [Mass/Vol] 0.70 mg/dL Normal 0.55-1.[address] [facility] Comment on above: Performed By: #### M G, CMP #### [facility] [address] [place] [address] Dr. Doreen Betancourt EGFR-AF TURKISH >60 Normal >=60 [facility] Comment on above: Performed By: #### M G, CMP #### [facility] [address] [place] [address] Dr. Doreen Betancourt EGFR-NON AF TURKISH >60 Normal >=[address] [facility] Comment on above: Performed By: #### M G, CMP #### [facility] [address] [place] [address] Dr. Doreen Betancourt Globulin (S) [Mass/Vol] 3.7 g/dL Normal [facility] Comment on above: Performed By: #### M G, CMP #### [facility] [address] [address] [address] Doreen Betancourt Glucose [Mass/Vol] 99 mg/dL Normal 74-[address] [facility] Comment on above: Performed By: #### M G, CMP #### [facility] [address] [address] [address] Doreen Betancourt Potassium [Moles/Vol] 4.5 mmol/L Normal 3.5-5.[address] [facility] Comment on above: Performed By: #### M G, CMP #### [facility] [address] [place] [address] Dr. Doreen Betancourt Protein [Mass/Vol] 7.4 g/dL Normal 6.4-8.[address] [facility] Comment on above: Performed By: #### M G, CMP #### [facility] [address] [place] [address] Dr. Doreen Betancourt Sodium [Moles/Vol] 141 mmol/L Normal 136-145 [facility] Comment on above: Performed By: #### M G, CMP #### [facility] [address] [place] [address] Dr. Doreen Betancourt Urea nitrogen [Mass/Vol] 13.0 mg/dL Normal 7.0-18.[address] [facility] Comment on above: Performed By: #### M G, CMP #### [facility] [address] [place] [address] Dr. Doreen Betancourt Urea nitrogen/Creatinine [Mass ratio] 18.6 mg/mg Normal [facility] Comment on above: Performed By: #### M G, CMP #### [facility] [address] [place] [address] Dr. Doreen Betancourt CBC AUTO DIFFon 10-19-2022 BASO # 0.1 103/ul Normal 0.0-0.[address] [facility] Comment on above: Performed By: #### C BC #### [facility] [address] [place] [address] Dr. Doreen Betancourt Basophils/100 WBC (Bld) 1.0 % Normal 0.2-2.[address] [facility] Comment on above: Performed By: #### C BC #### [facility] [address] [place] [address] Dr. Doreen Betancourt EO # 0.0 103/ul Normal 0.0-0.[address] [facility] Comment on above: Performed By: #### C BC #### [facility] [address] [place] [address] Dr. Doreen Betancourt Eosinophils/100 WBC (Bld) 0.8 % Critically low 0.9-7.[address] [facility] Comment on above: Performed By: #### C BC #### [facility] [address] [place] [address] Dr. Doreen Betancourt Erythrocyte distribution width (RBC) [Ratio] 13.2 % Normal 11.0-15.[address] [facility] Comment on above: Performed By: #### C BC #### [facility] [address] [place] [address] Dr. Doreen Betancourt Hematocrit (Bld) [Volume fraction] 40.3 % Normal 36.0-48.[address] [facility] Comment on above: Performed By: #### C BC #### [facility] [address] [place] [address] Dr. Doreen Betancourt Hemoglobin (Bld) [Mass/Vol] 13.3 g/dL Normal 12.0-16.[address] [facility] Comment on above: Performed By: #### C BC #### [facility] [address] [place] [address] Dr. Doreen Betancourt IG # 0.02 10e3/ul Normal 0.00-0.[address] [facility] Comment on above: Performed By: #### C BC #### [facility] [address] [place] [address] Dr. Doreen Betancourt IG % 0.4 % Normal 0.0-0.5 [facility] Comment on above: Performed By: #### C BC #### [facility] [address] [place] [address] Dr. Doreen Betancourt LYMPH # 1.8 103/ul Normal 1.2-3.8 [facility] Comment on above: Performed By: #### C BC #### [facility] [address] [place] [address] Dr. Doreen Betancourt Lymphocytes/100 WBC (Bld) 36.8 % Normal 20.5-60.[address] [facility] Comment on above: Performed By: #### C BC #### [facility] [address] [place] [address] Dr. Doreen Betancourt MANUAL DIFF REQ NO Normal [facility] Comment on above: Performed By: #### C BC #### [facility] [address] [place] [address] Dr. Doreen Betancourt MCH (RBC) [Entitic mass] 33.8 pg Normal 26.7-34.[address] [facility] Comment on above: Performed By: #### C BC #### [facility] [address] [place] [address] Dr. Doreen Betancourt MCHC (RBC) [Mass/Vol] 33.0 g/dL Normal 29.9-35.[address] [facility] Comment on above: Performed By: #### C BC #### [facility] [address] [place] [address] Dr. Doreen Betancourt MCV (RBC) [Entitic vol] 102.5 fL Critically high 81.0-99.[address] [facility] Comment on above: Performed By: #### C BC #### [facility] [address] [place] [address] Dr. Doreen Betancourt MONO # 0.6 103/ul Normal 0.3-0.[address] [facility] Comment on above: Performed By: #### C BC #### [facility] [address] [place] [address] Dr. Doreen Betancourt Monocytes/100 WBC (Bld) 12.3 % Critically high 1.7-12.0 [facility] Comment on above: Performed By: #### C BC #### [facility] [address] [place] [address] Dr. Doreen Betancourt NEUT # 2.4 103/ul Normal 1.4-6.5 [facility] Comment on above: Performed By: #### C BC #### [facility] [address] [place] [address] Dr. Doreen Betancourt Neutrophils/100 WBC (Bld) 48.7 % Normal 43.0-75.[address] [facility] Comment on above: Performed By: #### C BC #### [facility] [address] [place] [address] Dr. Doreen Betancourt Platelet mean volume (Bld) [Entitic vol] 10.3 fL Normal 9.5-13.[address] [facility] Comment on above: Performed By: #### C BC #### [facility] [address] [place] [address] Dr. Doreen Betancourt PLT 239 103/ul Normal 150-[address] [facility] Comment on above: Performed By: #### C BC #### [facility] [address] [place] [address] Dr. Doreen Betancourt RBC 3.93 106/ul Critically low 4.20-5.[address] [facility] Comment on above: Performed By: #### C BC #### [facility] [address] [place] [address] Dr. Doreen Betancourt WBC 4.9 103/ul Normal 4.0-11.[address] [facility] Comment on above: Performed By: #### C BC #### [facility] [address] [place] [address] Dr. Doreen Betancourt MAGNESIUMon 10-19-2022 Magnesium [Mass/Vol] 1.9 mg/dL Normal 1.8-2.[address] [facility] Comment on above: Performed By: #### M G, CMP #### [facility] [address] [place] [address] Dr. Doreen Betancourt PROF 14(COMP METB)on 023 Albumin [Mass/Vol] 3.5 g/dL Normal 3.4-5.[address] [facility] Comment on above: Performed By: #### C MP, MG #### [facility] [address] [place] [address] Dr. Doreen Betancourt Albumin/Globulin [Mass ratio] 0.9 {ratio} Normal [facility] Comment on above: Performed By: #### C MP, MG #### [facility] [address] [address] [address] Doreen Betancourt ALP [Catalytic activity/Vol] 153 U/L Critically high 46-[address] [facility] Comment on above: Performed By: #### C MP, MG #### [facility] [address] [address] [address] Doreen Betancourt ALT [Catalytic activity/Vol] 36 U/L Normal 14-[address] [facility] Comment on above: Performed By: #### C MP, MG #### [facility] [address] [address] [address] Doreen Betancourt Anion gap [Moles/Vol] 11.7 mmol/L Normal Th e [facility] Comment on above: Performed By: #### C MP, MG #### [facility] [address] [address] [address] Doreen Betancourt AST [Catalytic activity/Vol] 30 U/L Normal 15-[address] [facility] Comment on above: Performed By: #### C MP, MG #### [facility] [address] [address] [address] Doreen Betancourt Bilirubin [Mass/Vol] 0.5 mg/dL Normal 0.2-1.[address] [facility] Comment on above: Performed By: #### C MP, MG #### [facility] [address] [address] [address] Doreen Betancourt Calcium [Mass/Vol] 9.2 mg/dL Normal 8.5-10.[address] [facility] Comment on above: Performed By: #### C MP, MG #### [facility] [address] [address] [address] Doreen Betancourt Chloride [Moles/Vol] 105 mmol/L Normal 98-[address] [facility] Comment on above: Performed By: #### C MP, MG #### [facility] [address] [address] [address] Doreen Betancourt CO2 [Moles/Vol] 27.3 mmol/L Normal 21.0-32.[address] [facility] Comment on above: Performed By: #### C MP, MG #### [facility] [address] [address] [address] Doreen Betancourt Creatinine [Mass/Vol] 0.75 mg/dL Normal 0.55-1.02 [facility] Comment on above: Performed By: #### C MP, MG #### [facility] [address] [address] [address] Doreen Betancourt EGFR-AF TURKISH >60 Normal >=60 [facility] Comment on above: Performed By: #### C MP, MG #### [facility] [address] [address] [address] Doreen Betancourt EGFR-NON AF TURKISH >60 Normal >=[address] [facility] Comment on above: Performed By: #### C MP, MG #### [facility] [address] [place] [address] Dr. Doreen Betancourt Globulin (S) [Mass/Vol] 4.0 g/dL Normal [facility] Comment on above: Performed By: #### C MP, MG #### [facility] [address] [place] [address] Dr. Doreen Betancourt Glucose [Mass/Vol] 89 mg/dL Normal 74-[address] [facility] Comment on above: Performed By: #### C MP, MG #### [facility] [address] [place] [address] Dr. Doreen Betancourt Potassium [Moles/Vol] 4.0 mmol/L Normal 3.5-5.1 [facility] Comment on above: Performed By: #### C MP, MG #### [facility] [address] [place] [address] Dr. Doreen Betancourt Protein [Mass/Vol] 7.5 g/dL Normal 6.4-8.2 [facility] Comment on above: Performed By: #### C MP, MG #### [facility] [address] [place] [address] Dr. Doreen Betancourt Sodium [Moles/Vol] 140 mmol/L Normal 136-145 [facility] Comment on above: Performed By: #### C MP, MG #### [facility] [address] [address] [address] Doreen Betancourt Urea nitrogen [Mass/Vol] 18.0 mg/dL Normal 7.0-18.[address] [facility] Comment on above: Performed By: #### C MP, MG #### [facility] [address] [place] [address] Dr. Doreen Betancourt Urea nitrogen/Creatinine [Mass ratio] 24.0 mg/mg Normal [facility] Comment on above: Performed By: #### C MP, MG #### [facility] [address] [place] [address] Dr. Doreen Betancourt Magnesium [Mass/volume] in S daljit or PlasmaOrdered By: Isaías Jordan on 09-23-2022 Magnesium [Mass/Vol] 2.2 mg/dL 1.9-2.7 [facility] Magnesium [Mass/Vol] Magnesium [Mass/vol ume] in Serum or Plasma 1.9-2.7 [facility] CBC AUTO DIFFon 09-14-2022 BASO # 0.0 103/ul Normal 0.0-0.[address] [facility] Comment on above: Performed By: #### C BC #### [facility] [address] [place] [address] Dr. Doreen Betancourt Basophils/100 WBC (Bld) 0.3 % Normal 0.2-2.[address] [facility] Comment on above: Performed By: #### C BC #### [facility] [address] [place] [address] Dr. Doreen Betancourt EO # 0.0 103/ul Normal 0.0-0.[address] [facility] Comment on above: Performed By: #### C BC #### [facility] [address] [place] [address] Dr. Doreen Betancourt Eosinophils/100 WBC (Bld) 0.9 % Normal 0.9-7.[address] [facility] Comment on above: Performed By: #### C BC #### [facility] [address] [place] [address] Dr. Doreen Betancourt Erythrocyte distribution width (RBC) [Ratio] 16.3 % Critically high 11.0-15.[address] [facility] Comment on above: Performed By: #### C BC #### [facility] [address] [place] [address] Dr. Doreen Betancourt Hematocrit (Bld) [Volume fraction] 37.3 % Normal 36.0-48.[address] [facility] Comment on above: Performed By: #### C BC #### [facility] [address] [place] [address] Dr. Doreen Betancourt Hemoglobin (Bld) [Mass/Vol] 12.4 g/dL Normal 12.0-16.0 [facility] Comment on above: Performed By: #### C BC #### [facility] [address] [place] [address] Dr. Doreen Betancourt IG # 0.01 10e3/ul Normal 0.00-0.[address] [facility] Comment on above: Performed By: #### C BC #### [facility] [address] [place] [address] Dr. Doreen Betancourt IG % 0.3 % Normal 0.0-0.[address] [facility] Comment on above: Performed By: #### C BC #### [facility] [address] [place] [address] Dr. Doreen Betancourt LYMPH # 1.1 103/ul Critically low 1.2-3.[address] [facility] Comment on above: Performed By: #### C BC #### [facility] [address] [place] [address] Dr. Doreen Betancourt Lymphocytes/100 WBC (Bld) 30.7 % Normal 20.5-60.0 [facility] Comment on above: Performed By: #### C BC #### [facility] [address] [place] [address] Dr. Doreen Betancourt MANUAL DIFF REQ NO Normal [facility] Comment on above: Performed By: #### C BC #### [facility] [address] [place] [address] Dr. Doreen Betancourt MCH (RBC) [Entitic mass] 34.3 pg Critically high 26.7-34.[address] [facility] Comment on above: Performed By: #### C BC #### [facility] [address] [address] [address] Doreen Betancourt MCHC (RBC) [Mass/Vol] 33.2 g/dL Normal 29.9-35.[address] [facility] Comment on above: Performed By: #### C BC #### [facility] [address] [address] [address] Doreen Betancourt MCV (RBC) [Entitic vol] 103.3 fL Critically high 81.0-99.[address] [facility] Comment on above: Performed By: #### C BC #### [facility] [address] [place] [address] Dr. Doreen Betancourt MONO # 0.4 103/ul Normal 0.3-0.[address] [facility] Comment on above: Performed By: #### C BC #### [facility] [address] [place] [address] Dr. Doreen Betancourt Monocytes/100 WBC (Bld) 11.4 % Normal 1.7-12.[address] [facility] Comment on above: Performed By: #### C BC #### [facility] [address] [place] [address] Dr. Doreen Betancourt NEUT # 2.0 103/ul Normal 1.4-6.[address] [facility] Comment on above: Performed By: #### C BC #### [facility] [address] [place] [address] Dr. Doreen Betancourt Neutrophils/100 WBC (Bld) 56.4 % Normal 43.0-75.[address] [facility] Comment on above: Performed By: #### C BC #### [facility] [address] [address] [address] Doreen Betancourt Platelet mean volume (Bld) [Entitic vol] 10.0 fL Normal 9.5-13.[address] [facility] Comment on above: Performed By: #### C BC #### [facility] [address] [address] [address] Doreen Betancourt PLT 128 103/ul Critically low 150-450 [facility] Comment on above: Performed By: #### C BC #### [facility] [address] [place] [address] Dr. Doreen Betancourt RBC 3.61 106/ul Critically low 4.20-5.[address] [facility] Comment on above: Performed By: #### C BC #### [facility] [address] [place] [address] Dr. Doreen Betancourt WBC 3.5 103/ul Critically low 4.0-11.[address] [facility] Comment on above: Performed By: #### C BC #### [facility] [address] [place] [address] Dr. Doreen Betancourt MAGNESIUMon 09-14-2022 Magnesium [Mass/Vol] 1.9 mg/dL Normal 1.8-2.[address] [facility] Comment on above: Performed By: #### C VDTBH #### [facility] [address] [place] [address] Dr. Doreen Betancourt PROF 14(COMP METB)on 023 Albumin [Mass/Vol] 3.7 g/dL Normal 3.4-5.[address] [facility] Comment on above: Performed By: #### C VDTBH #### [facility] [address] [place] [address] Dr. Doreen Betancourt Albumin/Globulin [Mass ratio] 1.1 {ratio} Normal [facility] Comment on above: Performed By: #### C VDTBH #### [facility] [address] [place] [address] Dr. Doreen Betancourt ALP [Catalytic activity/Vol] 138 U/L Critically high 46-[address] [facility] Comment on above: Performed By: #### C VDTBH #### [facility] [address] [place] [address] Dr. Doreen Betancourt ALT [Catalytic activity/Vol] 42 U/L Normal 14-[address] [facility] Comment on above: Performed By: #### C VDTBH #### [facility] [address] [place] [address] Dr. Doreen Betancourt Anion gap [Moles/Vol] 11.0 mmol/L Normal Th e [facility] Comment on above: Performed By: #### C VDTBH #### [facility] [address] [place] [address] Dr. Doreen Betancourt AST [Catalytic activity/Vol] 36 U/L Normal 15-[address] [facility] Comment on above: Performed By: #### C VDTBH #### [facility] [address] [place] [address] Dr. Doreen Betancourt Bilirubin [Mass/Vol] 0.5 mg/dL Normal 0.2-1.[address] [facility] Comment on above: Performed By: #### C VDTBH #### [facility] [address] [place] [address] Dr. Doreen Betancourt Calcium [Mass/Vol] 9.6 mg/dL Normal 8.5-10.[address] [facility] Comment on above: Performed By: #### C VDTBH #### [facility] [address] [place] [address] Dr. Doreen Betancourt Chloride [Moles/Vol] 104 mmol/L Normal 98-[address] [facility] Comment on above: Performed By: #### C VDTBH #### [facility] [address] [place] [address] Dr. Doreen Betancourt CO2 [Moles/Vol] 29.8 mmol/L Normal 21.0-32.[address] [facility] Comment on above: Performed By: #### C VDTBH #### [facility] [address] [place] [address] Dr. Doreen Betancourt Creatinine [Mass/Vol] 0.62 mg/dL Normal 0.55-1.[address] [facility] Comment on above: Performed By: #### C VDTBH #### [facility] [address] [place] [address] Dr. Doreen Betancourt EGFR-AF TURKISH >60 Normal >=[address] [facility] Comment on above: Performed By: #### C VDTBH #### [facility] [address] [place] [address] Dr. Doreen Betancourt EGFR-NON AF TURKISH >60 Normal >=[address] [facility] Comment on above: Performed By: #### C VDTBH #### [facility] [address] [address] [address] Doreen Betancourt Globulin (S) [Mass/Vol] 3.4 g/dL Normal [facility] Comment on above: Performed By: #### C VDTBH #### [facility] [address] [address] [address] Doreen Betancourt Glucose [Mass/Vol] 115 mg/dL Critically high 74-106 [facility] Comment on above: Performed By: #### C VDTBH #### [facility] [address] [address] [address] Doreen Betancourt Potassium [Moles/Vol] 4.8 mmol/L Normal 3.5-5.[address] [facility] Comment on above: Performed By: #### C VDTBH #### [facility] [address] [address] [address] Doreen Betancourt Protein [Mass/Vol] 7.1 g/dL Normal 6.4-8.[address] [facility] Comment on above: Performed By: #### C VDTBH #### [facility] [address] [address] [address] Doreen Betancourt Sodium [Moles/Vol] 140 mmol/L Normal 136-[address] [facility] Comment on above: Performed By: #### C VDTBH #### [facility] [address] [address] [address] Doreen Betancourt Urea nitrogen [Mass/Vol] 14.0 mg/dL Normal 7.0-18.[address] [facility] Comment on above: Performed By: #### C VDTBH #### [facility] [address] [address] [address] Doreen Betancourt Urea nitrogen/Creatinine [Mass ratio] 22.6 mg/mg Normal [facility] Comment on above: Performed By: #### C VDTBH #### [facility] [address] [address] [address] Doreen Betancourt HEP B SURFACE ANTIGEN SCREEN on 09-03-2022 HBsAg Screen Negative Normal Negative [facility] Comment on above: Performed By: #### C VDTBH #### [facility] [address] [place] [address] Dr. Doreen Betancourt HEPATITIS B SURFACE ANTIBODY , QUANTon 09-03-2022 Hepatitis B Surf AB Quant 46.7 mIU/mL Normal Immunity>9 [address] [facility] Comment on above: Result Comment: Stat us of Immunity Anti-HBs Level Inconsistent with Immunity 0.0 - 9.9 Consistent with Immunity >9.9 Performed By: #### Gay G, CMP #### [facility] [address] [place] [address] Dr. Doreen Betancourt HEPATITIS C ANTIBODYon 09-03 Hep C Virus Ab Non-Reactive Normal Non Reactive [facility] Comment on above: Result Comment: HCV antibody alone does not differentiate between previously resolved infection and active infection. Equivocal and Reactive HCV antibody results should be followed up with an HCV RNA test to support the diagnosis of active HCV infection. Performed By: #### C VDTBH #### [facility] [address] [place] [address] Dr. Doreen Betancourt RPR QUANTon 09-03-2022 Rapid Plasma Reagin, Quant Non-Reactive Normal NonRea<1:[address] [facility] Comment on above: Result Comment: Plea se Note: This test does not meet current guidelines for screening and diagnosis of syphilis. This test is intended for following treatment response in patients being treated for syphilis infection. To screen for syphilis infection, a reflex cascade that includes both RPR and a treponema-specific assay should be utilized, such as Treponema pallidum (Syphilis) Screening [employer] (274450) or Rapid Plasma Reagin (RPR) Test With Reflex to Quantitative RPR and Confirmatory Treponema pallidum Antibodies (186968). Performed By: #### Gay G, CMP #### [facility] [address] [place] [address] [id number] [address] Doreen Betancourt HIV 1/2 RAPID (EXPOSURE ONLY )on 09-01-2022 HIV AB Non-Reactive Normal NON-REACTI VE [facility] Comment on above: Performed By: #### M G, CMP #### [facility] [address] [place] [address] Dr. Doreen Betancourt HIV AG Non-Reactive Normal NON-REACTI VE [facility] Comment on above: Performed By: #### M G, CMP #### [facility] [address] [place] [address] Dr. Doreen Betancourt INTERNAL CONTROLS Within Normal Limits Normal Wi thin Normal Limits [facility] Comment on above: Performed By: #### M G, CMP #### [facility] [address] [place] [address] Dr. Doreen Betancourt RAPID HIV INFO SEE BELOW Normal [facility] Comment on above: Result Comment: This test is used for the initial screening of the exposure source. Confirmation of all reactive results will be obtained through reference lab testing. Performed By: #### M G, CMP #### [facility] [address] [place] [address] Dr. Doreen Betancourt CBC AUTO DIFFon 08-31-2022 BASO # 0.0 103/ul Normal 0.0-0.[address] [facility] Comment on above: Performed By: #### M G, CMP #### [facility] [address] [place] [address] Dr. Doreen Betancourt Basophils/100 WBC (Bld) 0.7 % Normal 0.2-2.[address] [facility] Comment on above: Performed By: #### M G, CMP #### [facility] [address] [place] [address] Dr. Doreen Betancourt EO # 0.0 103/ul Normal 0.0-0.[address] [facility] Comment on above: Performed By: #### M G, CMP #### [facility] [address] [place] [address] Dr. Doreen Betancourt Eosinophils/100 WBC (Bld) 0.7 % Critically low 0.9-7.[address] [facility] Comment on above: Performed By: #### M G, CMP #### [facility] [address] [place] [address] Dr. Doreen Betancourt Erythrocyte distribution width (RBC) [Ratio] 18.2 % Critically high 11.0-15.[address] [facility] Comment on above: Performed By: #### M Salena, CMP #### [facility] [address] [place] [address] Dr. Doreen Betancourt Hematocrit (Bld) [Volume fraction] 37.8 % Normal 36.0-48.[address] [facility] Comment on above: Performed By: #### M G, CMP #### [facility] [address] [place] [address] Dr. Doreen Betancourt Hemoglobin (Bld) [Mass/Vol] 12.3 g/dL Normal 12.0-16.[address] [facility] Comment on above: Performed By: #### M Sal[place], CMP #### [facility] [address] [place] [address] Dr. Doreen Betancourt IG # 0.01 10e3/ul Normal 0.00-0.[address] [facility] Comment on above: Performed By: #### Gay Martino, CMP #### [facility] [address] [place] [address] Dr. Doreen Betancourt IG % 0.3 % Normal 0.0-0.[address] [facility] Comment on above: Performed By: #### M Salena, CMP #### [facility] [address] [place] [address] Dr. Doreen Betancourt LYMPH # 1.5 103/ul Normal 1.2-3.[address] [facility] Comment on above: Performed By: #### Gay Martino, CMP #### [facility] [address] [place] [address] Dr. Doreen Betancourt Lymphocytes/100 WBC (Bld) 49.5 % Normal 20.5-60.[address] [facility] Comment on above: Performed By: #### M G, CMP #### [facility] [address] [place] [address] Dr. Doreen Betancourt MANUAL DIFF REQ NO Normal [facility] Comment on above: Performed By: #### M G, CMP #### [facility] [address] [place] [address] Dr. Doreen Betancourt MCH (RBC) [Entitic mass] 33.3 pg Normal 26.7-34.0 [facility] Comment on above: Performed By: #### M G, CMP #### [facility] [address] [place] [address] Dr. Doreen Betancourt MCHC (RBC) [Mass/Vol] 32.5 g/dL Normal 29.9-35.2 [facility] Comment on above: Performed By: #### M G, CMP #### [facility] [address] [place] [address] Dr. Doreen Betancourt MCV (RBC) [Entitic vol] 102.4 fL Critically high 81.0-99.0 [facility] Comment on above: Performed By: #### M G, CMP #### [facility] [address] [place] [address] Dr. Doreen Betancourt MONO # 0.5 103/ul Normal 0.3-0.8 [facility] Comment on above: Performed By: #### M G, CMP #### [facility] [address] [place] [address] Dr. Doreen Betancourt Monocytes/100 WBC (Bld) 14.7 % Critically high 1.7-12.0 [facility] Comment on above: Performed By: #### M G, CMP #### [facility] [address] [place] [address] Dr. Doreen Betancourt NEUT # 1.1 103/ul Critically low 1.4-6.5 [facility] Comment on above: Performed By: #### M G, CMP #### [facility] [address] [place] [address] Dr. Doreen Betancourt Neutrophils/100 WBC (Bld) 34.1 % Critically low 43.0-75.0 [facility] Comment on above: Performed By: #### M G, CMP #### [facility] [address] [place] [address] Dr. Doreen Betancourt Platelet mean volume (Bld) [Entitic vol] 11.1 fL Normal 9.5-13.5 [facility] Comment on above: Performed By: #### M G, CMP #### [facility] [address] [place] [address] Dr. Doreen Betancourt PLT 117 103/ul Critically low 150-450 [facility] Comment on above: Performed By: #### M G, CMP #### [facility] [address] [place] [address] Dr. Doreen Betancourt RBC 3.69 106/ul Critically low 4.20-5.40 [facility] Comment on above: Performed By: #### M G, CMP #### [facility] [address] [place] [address] Dr. Droeen Betancourt WBC 3.1 103/ul Critically low 4.0-11.0 [facility] Comment on above: Performed By: #### M G, CMP #### [facility] [address] [place] [address] Dr. Doreen Betancourt MAGNESIUMon 08-31-2022 Magnesium [Mass/Vol] 2.0 mg/dL Normal 1.8-2.4 [facility] Comment on above: Performed By: #### Gay Martino, CMP #### [facility] [address] [place] [address] Dr. Doreen Betancourt PROF 14(COMP METB)on 023 Albumin [Mass/Vol] 3.4 g/dL Normal 3.4-5.[address] [facility] Comment on above: Performed By: #### M G, CMP #### [facility] [address] [place] [address] Dr. Doreen Betancourt Albumin/Globulin [Mass ratio] 1.0 {ratio} Normal [facility] Comment on above: Performed By: #### Gay G, CMP #### [facility] [address] [place] [address] Dr. Doreen Betancourt ALP [Catalytic activity/Vol] 121 U/L Critically high 46-116 [facility] Comment on above: Performed By: #### M G, CMP #### [facility] [address] [place] [address] Dr. Doreen Betancourt ALT [Catalytic activity/Vol] 52 U/L Normal 14-59 [facility] Comment on above: Performed By: #### Gay Martino, CMP #### [facility] [address] [address] [address] Doreen Betancourt Anion gap [Moles/Vol] 11.5 mmol/L Normal Th e [facility] Comment on above: Performed By: #### M G, CMP #### [facility] [address] [address] [address] Doreen Betancourt AST [Catalytic activity/Vol] 34 U/L Normal 15-37 [facility] Comment on above: Performed By: #### M G, CMP #### [facility] [address] [address] [address] Doreen Betancourt Bilirubin [Mass/Vol] 0.4 mg/dL Normal 0.2-1.[address] [facility] Comment on above: Performed By: #### M G, CMP #### [facility] [address] [place] [address] Dr. Doreen Betancourt Calcium [Mass/Vol] 9.5 mg/dL Normal 8.5-10.[address] [facility] Comment on above: Performed By: #### M G, CMP #### [facility] [address] [place] [address] [address] Doreen Betancourt Chloride [Moles/Vol] 106 mmol/L Normal 98-[address] [facility] Comment on above: Performed By: #### M G, CMP #### [facility] [address] [address] [address] Doreen Betancourt CO2 [Moles/Vol] 28.6 mmol/L Normal 21.0-32.[address] [facility] Comment on above: Performed By: #### M G, CMP #### [facility] [address] [address] [address] Doreen Betancourt Creatinine [Mass/Vol] 0.60 mg/dL Normal 0.55-1.[address] [facility] Comment on above: Performed By: #### M G, CMP #### [facility] [address] [address] [address] Doreen Betancourt EGFR-AF TURKISH >60 Normal >=60 [facility] Comment on above: Performed By: #### M G, CMP #### [facility] [address] [address] [address] Doreen Betancourt EGFR-NON AF TURKISH >60 Normal >=60 [facility] Comment on above: Performed By: #### M G, CMP #### [facility] [address] [address] [address] Doreen Betancourt Globulin (S) [Mass/Vol] 3.5 g/dL Normal [facility] Comment on above: Performed By: #### M G, CMP #### [facility] [address] [address] [address] Doreen Betancourt Glucose [Mass/Vol] 95 mg/dL Normal 74-106 [facility] Comment on above: Performed By: #### M G, CMP #### [facility] [address] [place] [address] Dr. Doreen Betancourt Potassium [Moles/Vol] 4.1 mmol/L Normal 3.5-5.1 [facility] Comment on above: Performed By: #### M G, CMP #### [facility] [address] [place] [address] Dr. Doreen Betancourt Protein [Mass/Vol] 6.9 g/dL Normal 6.4-8.2 [facility] Comment on above: Performed By: #### M G, CMP #### [facility] [address] [place] [address] Dr. Doreen Betancourt Sodium [Moles/Vol] 142 mmol/L Normal 136-145 [facility] Comment on above: Performed By: #### M G, CMP #### [facility] [address] [place] [address] Dr. Doreen Betancourt Urea nitrogen [Mass/Vol] 13.0 mg/dL Normal 7.0-18.0 [facility] Comment on above: Performed By: #### M G, CMP #### [facility] [address] [place] [address] Dr. Doreen Betancourt Urea nitrogen/Creatinine [Mass ratio] 21.7 mg/mg Normal [facility] Comment on above: Performed By: #### M G, CMP #### [facility] [address] [place] [address] Dr. Doreen Betancourt CBC W MANUAL DIFFon 08-16-19 23 ANISOCYTOSIS SLIGHT Normal [facility] Comment on above: Performed By: #### M G, CMP #### [facility] [address] [place] [address] Dr. Doreen Betancourt ATYPICAL LYMPH # Normal [facility] Comment on above: Performed By: #### M G, CMP #### [facility] [address] [place] [address] Dr. Doreen Betancourt ATYPICAL LYMPH % Normal [facility] Comment on above: Performed By: #### M G, CMP #### [facility] [address] [place] [address] Dr. Doreen Betancourt BAND # Normal 0.0-0.[address] [facility] Comment on above: Performed By: #### M G, CMP #### [facility] [address] [place] [address] Dr. Doreen Betancourt BAND % Normal 0-5 [facility] Comment on above: Performed By: #### M G, CMP #### [facility] [address] [place] [address] Dr. Doreen Betancourt BASOM # 0.00 103/ul Normal 0.00-0.[address] [facility] Comment on above: Performed By: #### M G, CMP #### [facility] [address] [place] [address] Dr. Doreen Betancourt BASOM % 0.0 % Critically low 0.2-2.[address] [facility] Comment on above: Performed By: #### M G, CMP #### [facility] [address] [place] [address] Dr. Doreen Betancourt BLAST # Normal [facility] Comment on above: Performed By: #### M G, CMP #### [facility] [address] [place] [address] Dr. Doreen Betancourt BLAST % Normal [facility] Comment on above: Performed By: #### M G, CMP #### [facility] [address] [place] [address] Dr. Doreen Betancourt CORRECTED WBC Normal 4.0-11.[address] [facility] Comment on above: Performed By: #### M G, CMP #### [facility] [address] [place] [address] Dr. Doreen Betancourt EOS # 0.00 103/ul Normal 0.00-0.[address] [facility] Comment on above: Performed By: #### M G, CMP #### [facility] [address] [place] [address] Dr. Doreen Betancourt EOS% 0.0 % Critically low 0.9-7.[address] [facility] Comment on above: Performed By: #### M G, CMP #### [facility] [address] [place] [address] Dr. Doreen Betancourt HCT 36.2 % Normal 36.0-48.[address] [facility] Comment on above: Performed By: #### M G, CMP #### [facility] [address] [place] [address] Dr. Doreen Betancourt HGB 12.1 g/dl Normal 12.0-16.[address] [facility] Comment on above: Performed By: #### M G, CMP #### [facility] [address] [place] [address] Dr. Doreen Betancourt LYMPHM # 2.08 103/ul Normal 1.20-3.[address] [facility] Comment on above: Performed By: #### M G, CMP #### [facility] [address] [place] [address] Dr. Doreen Betancourt LYMPHM% 63.0 % Critically high 20.5-60.[address] [facility] Comment on above: Performed By: #### M G, CMP #### [facility] [address] [place] [address] Dr. Doreen Betancourt MCH 33.0 pg Normal 26.7-34.[address] [facility] Comment on above: Performed By: #### M G, CMP #### [facility] [address] [place] [address] Dr. Doreen Betancourt MCHC 33.4 g/dl Normal 29.9-35.[address] [facility] Comment on above: Performed By: #### M G, CMP #### [facility] [address] [address] [address] Doreen Betancourt MCV 98.6 fL Normal 81.0-99.[address] [facility] Comment on above: Performed By: #### M G, CMP #### [facility] [address] [place] [address] Dr. Doreen Betancourt METAMYELOCYTE # Normal [facility] Comment on above: Performed By: #### M G, CMP #### [facility] [address] [place] [address] Dr. Doreen Betancourt METAMYELOCYTE % Normal [facility] Comment on above: Performed By: #### M G, CMP #### [facility] [address] [place] [address] Dr. Doreen Betancourt MONOM# 0.33 103/ul Normal 0.30-0.[address] [facility] Comment on above: Performed By: #### M G, CMP #### [facility] [address] [place] [address] Dr. Doreen Betancourt MONOM% 10.0 % Normal 1.7-12.[address] [facility] Comment on above: Performed By: #### M G, CMP #### [facility] [address] [place] [address] Dr. Doreen Betancourt MPV 10.4 fL Normal 9.5-13.[address] [facility] Comment on above: Performed By: #### M G, CMP #### [facility] [address] [place] [address] Dr. Doreen Betancourt MYELOCYTE # Normal [facility] Comment on above: Performed By: #### M G, CMP #### [facility] [address] [place] [address] Dr. Doreen Betancourt MYELOCYTE % Normal [facility] Comment on above: Performed By: #### M G, CMP #### [facility] [address] [place] [address] Dr. Doreen Betancourt NRBC Normal [facility] Comment on above: Performed By: #### M G, CMP #### [facility] [address] [address] [address] Doreen Betancourt PLT 92 103/ul Critically low 150-450 [facility] Comment on above: Performed By: #### M G, CMP #### [facility] [address] [place] [address] Dr. Doreen Betancourt RBC 3.67 106/ul Critically low 4.20-5.[address] [facility] Comment on above: Performed By: #### M G, CMP #### [facility] [address] [place] [address] Dr. Doreen Betancourt RDW 17.8 % Critically high 11.0-15.[address] [facility] Comment on above: Performed By: #### M G, CMP #### [facility] [address] [place] [address] Dr. Doreen Betancourt SEG # 0.89 103/ul Critically low 1.40-6.[address] [facility] Comment on above: Performed By: #### M G, CMP #### [facility] [address] [place] [address] Dr. Doreen Betancourt SEG % 27.0 % Critically low 43.0-75.[address] [facility] Comment on above: Performed By: #### M G, CMP #### [facility] [address] [place] [address] Dr. Doreen Betancourt WBC 3.3 103/ul Critically low 4.0-11.0 [facility] Comment on above: Performed By: #### M G, CMP #### [facility] [address] [place] [address] Dr. Doreen Betancourt MAGNESIUMon 08-16-2022 Magnesium [Mass/Vol] 2.1 mg/dL Normal 1.8-2.4 [facility] Comment on above: Performed By: #### C BC #### [facility] [address] [place] [address] Dr. Doreen Betancourt PROF 14(COMP METB)on 023 Albumin [Mass/Vol] 3.5 g/dL Normal 3.4-5.[address] [facility] Comment on above: Performed By: #### C BC #### [facility] [address] [place] [address] Dr. Doreen Betancourt Albumin/Globulin [Mass ratio] 1.0 {ratio} Normal [facility] Comment on above: Performed By: #### C BC #### [facility] [address] [place] [address] Dr. Doreen Betancourt ALP [Catalytic activity/Vol] 131 U/L Critically high 46-[address] [facility] Comment on above: Performed By: #### C BC #### [facility] [address] [place] [address] Dr. Doreen Betancourt ALT [Catalytic activity/Vol] 98 U/L Critically high 14-[address] [facility] Comment on above: Performed By: #### C BC #### [facility] [address] [place] [address] Dr. Doreen Betancourt Anion gap [Moles/Vol] 12.3 mmol/L Normal [facility] Comment on above: Performed By: #### C BC #### [facility] [address] [place] [address] Dr. Doreen Betancourt AST [Catalytic activity/Vol] 78 U/L Critically high 15-[address] [facility] Comment on above: Performed By: #### C BC #### [facility] [address] [place] [address] Dr. Doreen Betancourt Bilirubin [Mass/Vol] 0.3 mg/dL Normal 0.2-1.[address] [facility] Comment on above: Performed By: #### C BC #### [facility] [address] [place] [address] Dr. Doreen Betancourt Calcium [Mass/Vol] 9.3 mg/dL Normal 8.5-10.[address] [facility] Comment on above: Performed By: #### C BC #### [facility] [address] [place] [address] Dr. Doreen Betancourt Chloride [Moles/Vol] 104 mmol/L Normal 98-[address] [facility] Comment on above: Performed By: #### C BC #### [facility] [address] [place] [address] Dr. Doreen Betancourt CO2 [Moles/Vol] 29.4 mmol/L Normal 21.0-32.0 [facility] Comment on above: Performed By: #### C BC #### [facility] [address] [place] [address] Dr. Doreen Betancourt Creatinine [Mass/Vol] 0.67 mg/dL Normal 0.55-1.02 [facility] Comment on above: Performed By: #### C BC #### [facility] [address] [place] [address] Dr. Doreen Betancourt EGFR-AF TURKISH >60 Normal >=60 [facility] Comment on above: Performed By: #### C BC #### [facility] [address] [place] [address] Dr. Doreen Betancourt EGFR-NON AF TURKISH >60 Normal >=60 [facility] Comment on above: Performed By: #### C BC #### [facility] [address] [place] [address] Dr. Doreen Betancourt Globulin (S) [Mass/Vol] 3.5 g/dL Normal [facility] Comment on above: Performed By: #### C BC #### [facility] [address] [place] [address] Dr. Doreen Betancourt Glucose [Mass/Vol] 100 mg/dL Normal 74-106 [facility] Comment on above: Performed By: #### C BC #### [facility] [address] [place] [address] Dr. Doreen Betancourt Potassium [Moles/Vol] 4.7 mmol/L Normal 3.5-5.1 [facility] Comment on above: Performed By: #### C BC #### [facility] [address] [place] [address] Dr. Doreen Betancourt Protein [Mass/Vol] 7.0 g/dL Normal 6.4-8.2 [facility] Comment on above: Performed By: #### C BC #### [facility] [address] [place] [address] Dr. Doreen Betancourt Sodium [Moles/Vol] 141 mmol/L Normal 136-145 [facility] Comment on above: Performed By: #### C BC #### [facility] [address] [place] [address] Dr. Doreen Betancourt Urea nitrogen [Mass/Vol] 13.0 mg/dL Normal 7.0-18.[address] [facility] Comment on above: Performed By: #### C BC #### [facility] [address] [place] [address] Dr. Doreen Betancourt Urea nitrogen/Creatinine [Mass ratio] 19.4 mg/mg Normal [facility] Comment on above: Performed By: #### C BC #### [facility] [address] [place] [address] Dr. Doreen Betancourt CBC AUTO DIFFon 08-03-2022 BASO # 0.0 103/ul Normal 0.0-0.[address] [facility] Comment on above: Performed By: #### M G, CMP #### [facility] [address] [place] [address] Dr. Doreen Betancourt Basophils/100 WBC (Bld) 0.6 % Normal 0.2-2.[address] [facility] Comment on above: Performed By: #### M G, CMP #### [facility] [address] [place] [address] Dr. Doreen Betancourt EO # 0.0 103/ul Normal 0.0-0.[address] [facility] Comment on above: Performed By: #### M G, CMP #### [facility] [address] [place] [address] Dr. Doreen Betancourt Eosinophils/100 WBC (Bld) 0.6 % Critically low 0.9-7.[address] [facility] Comment on above: Performed By: #### M G, CMP #### [facility] [address] [place] [address] Dr. Doreen Betancourt Erythrocyte distribution width (RBC) [Ratio] 17.8 % Critically high 11.0-15.[address] [facility] Comment on above: Performed By: #### M G, CMP #### [facility] [address] [place] [address] Dr. Doreen Betancourt Hematocrit (Bld) [Volume fraction] 36.1 % Normal 36.0-48.[address] [facility] Comment on above: Performed By: #### M [place], CMP #### [facility] [address] [place] [address] Dr. Doreen Betancourt Hemoglobin (Bld) [Mass/Vol] 12.6 g/dL Normal 12.0-16.[address] [facility] Comment on above: Performed By: #### M G, CMP #### [facility] [address] [place] [address] Dr. Doreen Betancourt IG # 0.01 10e3/ul Normal 0.00-0.[address] [facility] Comment on above: Performed By: #### M G, CMP #### [facility] [address] [place] [address] Dr. Doreen Betancourt IG % 0.3 % Normal 0.0-0.[address] [facility] Comment on above: Performed By: #### M [place], CMP #### [facility] [address] [place] [address] Dr. Doreen Betancourt LYMPH # 1.6 103/ul Normal 1.2-3.[address] [facility] Comment on above: Performed By: #### Gay Martino, CMP #### [facility] [address] [place] [address] Dr. Doreen Betancourt Lymphocytes/100 WBC (Bld) 46.4 % Normal 20.5-60.[address] [facility] Comment on above: Performed By: #### Gay [place], CMP #### [facility] [address] [place] [address] Dr. Doreen Betancourt MANUAL DIFF REQ NO Normal [facility] Comment on above: Performed By: #### M G, CMP #### [facility] [address] [place] [address] Dr. Doreen Betancourt MCH (RBC) [Entitic mass] 32.1 pg Normal 26.7-34.[address] [facility] Comment on above: Performed By: #### M G, CMP #### [facility] [address] [place] [address] Dr. Doreen Betancourt MCHC (RBC) [Mass/Vol] 34.9 g/dL Normal 29.9-35.2 [facility] Comment on above: Performed By: #### M G, CMP #### [facility] [address] [place] [address] Dr. Doreen Betancourt MCV (RBC) [Entitic vol] 91.9 fL Normal 81.0-99.0 [facility] Comment on above: Performed By: #### M G, CMP #### [facility] [address] [place] [address] Dr. Doreen Betancourt MONO # 0.3 103/ul Normal 0.3-0.8 [facility] Comment on above: Performed By: #### M G, CMP #### [facility] [address] [place] [address] Dr. Doreen Betancourt Monocytes/100 WBC (Bld) 9.7 % Normal 1.7-12.[address] [facility] Comment on above: Performed By: #### M G, CMP #### [facility] [address] [place] [address] Dr. Doreen Betancourt NEUT # 1.5 103/ul Normal 1.4-6.[address] [facility] Comment on above: Performed By: #### M G, CMP #### [facility] [address] [place] [address] Dr. Doreen Betancourt Neutrophils/100 WBC (Bld) 42.4 % Critically low 43.0-75.[address] [facility] Comment on above: Performed By: #### M G, CMP #### [facility] [address] [place] [address] Dr. Doreen Betancourt Platelet mean volume (Bld) [Entitic vol] 11.1 fL Normal 9.5-13.5 [facility] Comment on above: Performed By: #### M G, CMP #### [facility] [address] [place] [address] Dr. Doreen Betancourt PLT 101 103/ul Critically low 150-450 [facility] Comment on above: Performed By: #### M G, CMP #### [facility] [address] [place] [address] Dr. Doreen Betancourt RBC 3.93 106/ul Critically low 4.20-5.[address] [facility] Comment on above: Performed By: #### M G, CMP #### [facility] [address] [place] [address] Dr. Doreen Betancourt WBC 3.5 103/ul Critically low 4.0-11.[address] [facility] Comment on above: Performed By: #### M G, CMP #### [facility] [address] [place] [address] Dr. Doreen Betancourt MAGNESIUMon 08-03-2022 Magnesium [Mass/Vol] 2.0 mg/dL Normal 1.8-2.[address] [facility] Comment on above: Performed By: #### C MP, MG #### [facility] [address] [place] [address] Dr. Doreen Betancourt PROF 14(COMP METB)on 023 Albumin [Mass/Vol] 3.6 g/dL Normal 3.4-5.[address] [facility] Comment on above: Performed By: #### C MP, MG #### [facility] [address] [place] [address] Dr. Doreen Betancourt Albumin/Globulin [Mass ratio] 1.0 {ratio} Normal [facility] Comment on above: Performed By: #### C MP, MG #### [facility] [address] [place] [address] Dr. Doreen Betancourt ALP [Catalytic activity/Vol] 120 U/L Critically high 46-[address] [facility] Comment on above: Performed By: #### C MP, MG #### [facility] [address] [place] [address] Dr. Doreen Betancourt ALT [Catalytic activity/Vol] 80 U/L Critically high 14-[address] [facility] Comment on above: Performed By: #### C MP, MG #### [facility] [address] [place] [address] Dr. Doreen Betancourt Anion gap [Moles/Vol] 10.7 mmol/L Normal [facility] Comment on above: Performed By: #### C MP, MG #### [facility] [address] [place] [address] Dr. Doreen Betancourt AST [Catalytic activity/Vol] 62 U/L Critically high 15-[address] [facility] Comment on above: Performed By: #### C MP, MG #### [facility] [address] [place] [address] Dr. Doreen Betancourt Bilirubin [Mass/Vol] 0.4 mg/dL Normal 0.2-1.0 [facility] Comment on above: Performed By: #### C MP, MG #### [facility] [address] [place] [address] Dr. Doreen Betancourt Calcium [Mass/Vol] 9.6 mg/dL Normal 8.5-10.[address] [facility] Comment on above: Performed By: #### C MP, MG #### [facility] [address] [place] [address] Dr. Doreen Betancourt Chloride [Moles/Vol] 106 mmol/L Normal 98-107 [facility] Comment on above: Performed By: #### C MP, MG #### [facility] [address] [place] [address] Dr. Doreen Betancourt CO2 [Moles/Vol] 29.5 mmol/L Normal 21.0-32.[address] [facility] Comment on above: Performed By: #### C MP, MG #### [facility] [address] [place] [address] Dr. Doreen Betancourt Creatinine [Mass/Vol] 0.67 mg/dL Normal 0.55-1.[address] [facility] Comment on above: Performed By: #### C MP, MG #### [facility] [address] [place] [address] Dr. Doreen Betancourt EGFR-AF TURKISH >60 Normal >=60 [facility] Comment on above: Performed By: #### C MP, MG #### [facility] [address] [place] [address] Dr. Doreen Betancourt EGFR-NON AF TURKISH >60 Normal >=60 [facility] Comment on above: Performed By: #### C MP, MG #### [facility] [address] [address] [address] Doreen Betancourt Globulin (S) [Mass/Vol] 3.5 g/dL Normal [facility] Comment on above: Performed By: #### C MP, MG #### [facility] [address] [place] [address] Dr. Doreen Betancourt Glucose [Mass/Vol] 128 mg/dL Critically high 74-106 T [facility] Comment on above: Performed By: #### C MP, MG #### [facility] [address] [place] [address] Dr. Doreen Betancourt Potassium [Moles/Vol] 4.2 mmol/L Normal 3.5-5.[address] [facility] Comment on above: Performed By: #### C MP, MG #### [facility] [address] [place] [address] Dr. Doreen Betancourt Protein [Mass/Vol] 7.1 g/dL Normal 6.4-8.[address] [facility] Comment on above: Performed By: #### C MP, MG #### [facility] [address] [place] [address] Dr. Doreen Betancourt Sodium [Moles/Vol] 142 mmol/L Normal 136-[address] [facility] Comment on above: Performed By: #### C MP, MG #### [facility] [address] [place] [address] Dr. Doreen Betancourt Urea nitrogen [Mass/Vol] 12.0 mg/dL Normal 7.0-18.[address] [facility] Comment on above: Performed By: #### C MP, MG #### [facility] [address] [place] [address] Dr. Doreen Betancourt Urea nitrogen/Creatinine [Mass ratio] 17.9 mg/mg Normal [facility] Comment on above: Performed By: #### C MP, MG #### [facility] [address] [place] [address] Dr. Doreen Betancourt CEAon 07-21-2022 CEA 8.1 ng/mL Critically high 0.0-4.[address] [facility] Comment on above: Result Comment: Nons mokers <3.9 Smokers <5.6 . [employer] Electrochemiluminescence Immunoassay (ECLIA) . Values obtained with different assay methods or kits cannot be used interchangeably. Results cannot be interpreted as absolute evidence of the presence or absence of malignant disease. Performed By: #### C VDTBH #### [facility] [address] [place] [address] Dr. Doreen Betancourt CBC AUTO DIFFon 07-20-2022 BASO # 0.0 103/ul Normal 0.0-0.[address] [facility] Comment on above: Performed By: #### C VDTBH #### [facility] [address] [place] [address] Dr. Doreen Betancourt Basophils/100 WBC (Bld) 0.9 % Normal 0.2-2.[address] [facility] Comment on above: Performed By: #### C VDTBH #### [facility] [address] [place] [address] Dr. Doreen Betancourt EO # 0.0 103/ul Normal 0.0-0.[address] [facility] Comment on above: Performed By: #### C VDTBH #### [facility] [address] [place] [address] Dr. Doreen Betancourt Eosinophils/100 WBC (Bld) 0.6 % Critically low 0.9-7.[address] [facility] Comment on above: Performed By: #### C VDTBH #### [facility] [address] [place] [address] Dr. Doreen Betancourt Erythrocyte distribution width (RBC) [Ratio] 17.2 % Critically high 11.0-15.[address] [facility] Comment on above: Performed By: #### C VDTBH #### [facility] [address] [place] [address] Dr. Doreen Betancourt Hematocrit (Bld) [Volume fraction] 39.1 % Normal 36.0-48.[address] [facility] Comment on above: Performed By: #### C VDTBH #### [facility] [address] [place] [address] Dr. Doreen Betancourt Hemoglobin (Bld) [Mass/Vol] 13.0 g/dL Normal 12.0-16.0 [facility] Comment on above: Performed By: #### C VDTBH #### [facility] [address] [place] [address] Dr. Doreen Betancourt IG # 0.00 10e3/ul Normal 0.00-0.[address] [facility] Comment on above: Performed By: #### C VDTBH #### [facility] [address] [place] [address] Dr. Doreen Betancourt IG % 0.0 % Normal 0.0-0.[address] [facility] Comment on above: Performed By: #### C VDTBH #### [facility] [address] [place] [address] Dr. Doreen Betancourt LYMPH # 2.0 103/ul Normal 1.2-3.[address] [facility] Comment on above: Performed By: #### C VDTBH #### [facility] [address] [place] [address] Dr. Doreen Betancourt Lymphocytes/100 WBC (Bld) 42.1 % Normal 20.5-60.[address] [facility] Comment on above: Performed By: #### C VDTBH #### [facility] [address] [place] [address] Dr. Doreen Betancourt MANUAL DIFF REQ NO Normal [facility] Comment on above: Performed By: #### C VDTBH #### [facility] [address] [place] [address] Dr. Doreen Betancourt MCH (RBC) [Entitic mass] 31.1 pg Normal 26.7-34.[address] [facility] Comment on above: Performed By: #### C VDTBH #### [facility] [address] [place] [address] Dr. Doreen Betancourt MCHC (RBC) [Mass/Vol] 33.2 g/dL Normal 29.9-35.[address] [facility] Comment on above: Performed By: #### C VDTBH #### [facility] [address] [place] [address] Dr. Doreen Betancourt MCV (RBC) [Entitic vol] 93.5 fL Normal 81.0-99.0 [facility] Comment on above: Performed By: #### C VDTBH #### [facility] [address] [place] [address] Dr. Doreen Betancourt MONO # 0.6 103/ul Normal 0.3-0.[address] [facility] Comment on above: Performed By: #### C VDTBH #### [facility] [address] [place] [address] Dr. Doreen Betancourt Monocytes/100 WBC (Bld) 13.5 % Critically high 1.7-12.[address] [facility] Comment on above: Performed By: #### C VDTBH #### [facility] [address] [place] [address] Dr. Doreen Betancourt NEUT # 2.0 103/ul Normal 1.4-6.[address] [facility] Comment on above: Performed By: #### C VDTBH #### [facility] [address] [place] [address] Dr. Doreen Betancourt Neutrophils/100 WBC (Bld) 42.9 % Critically low 43.0-75.[address] [facility] Comment on above: Performed By: #### C VDTBH #### [facility] [address] [place] [address] Dr. Doreen Betancourt Platelet mean volume (Bld) [Entitic vol] 10.2 fL Normal 9.5-13.[address] [facility] Comment on above: Performed By: #### C VDTBH #### [facility] [address] [place] [address] Dr. Doreen Betancourt PLT 143 103/ul Critically low 150-450 [facility] Comment on above: Performed By: #### C VDTBH #### [facility] [address] [place] [address] Dr. Doreen Betancourt RBC 4.18 106/ul Critically low 4.20-5.40 [facility] Comment on above: Performed By: #### C VDTBH #### [facility] [address] [place] [address] Dr. Doreen Betancourt WBC 4.7 103/ul Normal 4.0-11.0 [facility] Comment on above: Performed By: #### C VDTBH #### [facility] [address] [place] [address] Dr. Doreen Betancourt MAGNESIUMon 07-20-2022 Magnesium [Mass/Vol] 2.2 mg/dL Normal 1.8-2.[address] [facility] Comment on above: Performed By: #### M G, CMP #### [facility] [address] [place] [address] Dr. Doreen Betancourt PROF 14(COMP METB)on 023 Albumin [Mass/Vol] 3.8 g/dL Normal 3.4-5.[address] [facility] Comment on above: Performed By: #### C BC #### [facility] [address] [place] [address] Dr. Doreen Betancourt Albumin/Globulin [Mass ratio] 1.0 {ratio} Normal [facility] Comment on above: Performed By: #### C BC #### [facility] [address] [place] [address] Dr. Doreen Betancourt ALP [Catalytic activity/Vol] 118 U/L Critically high 46-[address] [facility] Comment on above: Performed By: #### C BC #### [facility] [address] [place] [address] Dr. Doreen Betancourt ALT [Catalytic activity/Vol] 57 U/L Normal 14-[address] [facility] Comment on above: Performed By: #### C BC #### [facility] [address] [place] [address] Dr. Doreen Betancourt Anion gap [Moles/Vol] 13.4 mmol/L Normal [facility] Comment on above: Performed By: #### C BC #### [facility] [address] [place] [address] Dr. Doreen Betancourt AST [Catalytic activity/Vol] 40 U/L Critically high 15-[address] [facility] Comment on above: Performed By: #### C BC #### [facility] [address] [place] [address] Dr. Doreen Betancourt Bilirubin [Mass/Vol] 0.4 mg/dL Normal 0.2-1.[address] [facility] Comment on above: Performed By: #### C BC #### [facility] [address] [place] [address] Dr. Doreen Betancourt Calcium [Mass/Vol] 9.7 mg/dL Normal 8.5-10.[address] [facility] Comment on above: Performed By: #### C BC #### [facility] [address] [place] [address] Dr. Doreen Betancourt Chloride [Moles/Vol] 103 mmol/L Normal 98-107 [facility] Comment on above: Performed By: #### C BC #### [facility] [address] [place] [address] Dr. Doreen Betancourt CO2 [Moles/Vol] 29.1 mmol/L Normal 21.0-32.[address] [facility] Comment on above: Performed By: #### C BC #### [facility] [address] [place] [address] Dr. Doreen Betancourt Creatinine [Mass/Vol] 0.71 mg/dL Normal 0.55-1.[address] [facility] Comment on above: Performed By: #### C BC #### [facility] [address] [place] [address] Dr. Doreen Betancourt EGFR-AF TURKISH >60 Normal >=[address] [facility] Comment on above: Performed By: #### C BC #### [facility] [address] [place] [address] Dr. Doreen Betancourt EGFR-NON AF TURKISH >60 Normal >=60 [facility] Comment on above: Performed By: #### C BC #### [facility] [address] [place] [address] Dr. Doreen Betancourt Globulin (S) [Mass/Vol] 3.7 g/dL Normal [facility] Comment on above: Performed By: #### C BC #### [facility] [address] [place] [address] Dr. Doreen Betancourt Glucose [Mass/Vol] 106 mg/dL Normal 74-106 [facility] Comment on above: Performed By: #### C BC #### [facility] [address] [place], [place] [address] Dr. Doreen Betancourt Potassium [Moles/Vol] 4.5 mmol/L Normal 3.5-5.1 [facility] Comment on above: Performed By: #### C BC #### [facility] [address] [place], [place] [address] Dr. Doreen Betancourt Protein [Mass/Vol] 7.5 g/dL Normal 6.4-8.2 [facility] Comment on above: Performed By: #### C BC #### [facility] [address] [place], [place] [address] Dr. Doreen Betancourt Sodium [Moles/Vol] 141 mmol/L Normal 136-[address] [facility] Comment on above: Performed By: #### C BC #### [facility] [address] [place], [place] [address] Dr. Doreen Betancourt Urea nitrogen [Mass/Vol] 15.0 mg/dL Normal 7.0-18.0 [facility] Comment on above: Performed By: #### C BC #### [facility] [address] [place], [place] [address] Dr. Doreen Betancourt Urea nitrogen/Creatinine [Mass ratio] 21.1 mg/mg Normal [facility] Comment on above: Performed By: #### C BC #### [facility] [address] [place], [place] [address] Dr. Doreen Betancourt Albumin [Mass/volume] in Ser um or PlasmaOrdered By: Isaías Jordan on 07-11-2022 Albumin [Mass/Vol] 3.8 g/dL 3.2-5.5 [facility] Creatinine and Glomerular fi ltration rate.predicted panel (S/P/Bld)Ordered By: Isaías Jordan on 07-11-2022 Creatinine [Mass/Vol] 0.64 mg/dL 0.44-1.03 [facility] Estimated glomerular filtrat ion rate (GFR) non- AmericanOrdered By: Isaías Jordan on 07-11-2022 GFR/1.73 sq M.predicted among non-blacks MDRD (S/P/Bld) [Vol rate/Area] > 60 mL/Min [facility] GFR/1.73 sq M.predicted among non-blacks MDRD (S/P/Bld) [Vol rate/Area] Estimated glomerular filtration rate (GFR) non- [facility] Globulin Calc (S) [Mass/Vol] Ordered By: Isaías Jordan on 07-11-2022 Globulin (S) [Mass/Vol] 2.8 g/dL [facility] - Chemistry and C hemistry - challengeOrdered By: Isaías Jordan on 07-11-2022 Magnesium [Mass/Vol] 2.2 mg/dL 1.6-2.6 [facility] No Panel InformationOrdered By: Isaías Jordan on 07-11-2022 Estimated GFR () > 60 mL/Min [facility] Comment on above: GFR estimated refere nce range: According to KDOQI guidelines, <60 ml/min/1.73m2 is sufficient to diagnose a patient with chronic kidney disease. Pharmacy Creatinine Clearance (Chem 97.34 [facility] Protein [Mass/volume] in Ser um or PlasmaOrdered By: Isaías Jordan on 07-11-2022 Protein [Mass/Vol] 6.6 g/dL 6.1-7.9 [facility] Serum or plasma alanine villalpando otransferase measurement without P-5'-P (enzymatic activiOrdered By: Isaías Jordan on 07-11-2022 ALT No additional P-5'-P [Catalytic activity/Vol] 71 U/L 10-60 [facility] Serum or plasma albumin/glob ulin mass ratioOrdered By: Isaías Jordan on 07-11-2022 Albumin/Globulin [Mass ratio] 1.4 {ratio} [facility] Serum or plasma alkaline joselito sphatase measurement (enzymatic activity/volume)Ordered By: Isaías Jordan on 07-11-2022 ALP [Catalytic activity/Vol] 72 U/L 32-92 [facility] Serum or plasma anion gap de terminationOrdered By: Isaías Jordan on 07-11-2022 Anion gap [Moles/Vol] 9.7 mmol/L 6.0-15.0 [facility] Serum or plasma aspartate am inotransferase measurement (enzymatic activity/volume)Ordered By: Isaías Jordan on 07-11-2022 AST [Catalytic activity/Vol] 56 U/L 10-42 [facility] Serum or plasma calcium idalmis urement (mass/volume)Ordered By: Isaías Jordan on 07-11-2022 Calcium [Mass/Vol] 9.1 mg/dL 8.2-10.2 [facility] Serum or plasma chloride jose surement (moles/volume)Ordered By: Isaías Jordan on 07-11-2022 Chloride [Moles/Vol] 103 mmol/L 95-114 [facility] Serum or plasma glucose idalmis urement (mass/volume)Ordered By: Isaías Jordan on 07-11-2022 Glucose [Mass/Vol] 81 mg/dL 70-100 [facility] Comment on above: ADA recommended refe rence rangeRandom Glucose Reference Range is dependent on time and content of last meal. Glucose of more than 200 mg/dL in a nonstressed, ambulatory subject supports the diagnosis of Diabetes Mellitus. Serum or plasma potassium me asurement (moles/volume)Ordered By: Isaías Jordan on 07-11-2022 Potassium [Moles/Vol] 4.1 mmol/L 3.5-5.1 [facility] Serum or plasma sodium measu rement (moles/volume)Ordered By: Isaías Jordan on 07-11-2022 Sodium [Moles/Vol] 134 mmol/L 136-146 [facility] Serum or plasma total biliru bin measurement (mass/volume)Ordered By: Isaías Jordan on 07-11-2022 Bilirubin [Mass/Vol] 0.8 mg/dL 0.3-1.2 [facility] Serum or plasma total carbon dioxide measurement (moles/volume)Ordered By: Isaías Jordan on 07-11-2022 CO2 [Moles/Vol] 25.4 mmol/L 22.0-30.0 [facility] Serum or plasma urea nitroge n measurement (mass/volume)Ordered By: Isaías Jordan on 07-11-2022 Urea nitrogen [Mass/Vol] 14 mg/dL 9-23 [facility] Albumin [Mass/volume] in Ser um or PlasmaOrdered By: Isaías Jordan on 07-06-2022 Albumin [Mass/Vol] 4.2 g/dL 3.2-5.5 [facility] CBC AUTO DIFFon 07-06-2022 BASO # 0.0 103/ul Normal 0.0-0.1 [facility] Comment on above: Performed By: #### M G, CMP #### [facility] [address] [place] [address] Dr. Doreen Betancourt Basophils/100 WBC (Bld) 0.7 % Normal 0.2-2.0 [facility] Comment on above: Performed By: #### M G, CMP #### [facility] [address] [place] [address] Dr. Doreen Betancourt EO # 0.1 103/ul Normal 0.0-0.7 [facility] Comment on above: Performed By: #### M G, CMP #### [facility] [address] [place] [address] Dr. Doreen Betancourt Eosinophils/100 WBC (Bld) 1.1 % Normal 0.9-7.0 [facility] Comment on above: Performed By: #### M G, CMP #### [facility] [address] [place] [address] Dr. Doreen Betancourt Erythrocyte distribution width (RBC) [Ratio] 16.9 % Critically high 11.0-15.[address] [facility] Comment on above: Performed By: #### M G, CMP #### [facility] [address] [place] [address] Dr. Doreen Betancourt Hematocrit (Bld) [Volume fraction] 38.9 % Normal 36.0-48.[address] [facility] Comment on above: Performed By: #### M G, CMP #### [facility] [address] [place] [address] Dr. Doreen Betancourt Hemoglobin (Bld) [Mass/Vol] 14.2 g/dL Normal 12.0-16.[address] [facility] Comment on above: Performed By: #### M G, CMP #### [facility] [address] [place] [address] Dr. Doreen Betancourt IG # 0.01 10e3/ul Normal 0.00-0.[address] [facility] Comment on above: Performed By: #### M G, CMP #### [facility] [address] [place] [address] Dr. Doreen Betancourt IG % 0.2 % Normal 0.0-0.[address] [facility] Comment on above: Performed By: #### M G, CMP #### [facility] [address] [place] [address] Dr. Doreen Betancourt LYMPH # 2.0 103/ul Normal 1.2-3.8 [facility] Comment on above: Performed By: #### M G, CMP #### [facility] [address] [place] [address] Dr. Doreen Betancourt Lymphocytes/100 WBC (Bld) 43.2 % Normal 20.5-60.0 [facility] Comment on above: Performed By: #### M G, CMP #### [facility] [address] [place] [address] Dr. Doreen Betancourt MANUAL DIFF REQ NO Normal [facility] Comment on above: Performed By: #### M G, CMP #### [facility] [address] [place] [address] Dr. Doreen Betancourt MCH (RBC) [Entitic mass] 34.5 pg Critically high 26.7-34.[address] [facility] Comment on above: Performed By: #### M G, CMP #### [facility] [address] [place] [address] Dr. Doreen Betancourt MCHC (RBC) [Mass/Vol] 36.5 g/dL Critically high 29.9-35.2 [facility] Comment on above: Performed By: #### M G, CMP #### [facility] [address] [place] [address] Dr. Doreen Betancourt MCV (RBC) [Entitic vol] 94.6 fL Normal 81.0-99.[address] [facility] Comment on above: Performed By: #### M G, CMP #### [facility] [address] [address] [address] Doreen Betancourt MONO # 0.4 103/ul Normal 0.3-0.8 [facility] Comment on above: Performed By: #### M G, CMP #### [facility] [address] [place] [address] Dr. Doreen Betancourt Monocytes/100 WBC (Bld) 9.6 % Normal 1.7-12.0 [facility] Comment on above: Performed By: #### M G, CMP #### [facility] [address] [place] [address] Dr. Doreen Betancourt NEUT # 2.1 103/ul Normal 1.4-6.5 [facility] Comment on above: Performed By: #### M G, CMP #### [facility] [address] [place] [address] Dr. Doreen Betancourt Neutrophils/100 WBC (Bld) 45.2 % Normal 43.0-75.0 [facility] Comment on above: Performed By: #### M G, CMP #### [facility] [address] [place] [address] Dr. Doreen Betancourt Platelet mean volume (Bld) [Entitic vol] 9.8 fL Normal 9.5-13.5 [facility] Comment on above: Performed By: #### M G, CMP #### [facility] [address] [place] [address] Dr. Doreen Betancourt PLT 155 103/ul Normal 150-450 [facility] Comment on above: Performed By: #### M G, CMP #### [facility] [address] [place] [address] Dr. Doreen Betancourt RBC 4.11 106/ul Critically low 4.20-5.40 [facility] Comment on above: Performed By: #### M G, CMP #### [facility] [address] [place] [address] Dr. Doreen Betancourt WBC 4.6 103/ul Normal 4.0-11.0 [facility] Comment on above: Performed By: #### M G, CMP #### [facility] [address] [address] [address] Doreen Betancourt Creatinine and Glomerular fi ltration rate.predicted panel (S/P/Bld)Ordered By: Isaías Jordan on 07-06-2022 Creatinine [Mass/Vol] 0.43 mg/dL 0.44-1.03 [facility] [facility] Estimated glomerular filtrat ion rate (GFR) non- AmericanOrdered By: Isaías Jordan on 07-06-2022 GFR/1.73 sq M.predicted among non-blacks MDRD (S/P/Bld) [Vol rate/Area] > 60 mL/Min [facility] Globulin Calc (S) [Mass/Vol] Ordered By: Isaías Jordan on 07-06-2022 Globulin (S) [Mass/Vol] 2.6 g/dL [facility] - Chemistry and C hemistry - challengeOrdered By: Isaías Jordan on 07-06-2022 Magnesium [Mass/Vol] 2.8 mg/dL 1.6-2.6 [facility] MAGNESIUMon 07-06-2022 Magnesium [Mass/Vol] 2.0 mg/dL Normal 1.8-2.[address] [facility] Comment on above: Performed By: #### C BC #### [facility] [address] [address] [address] Doreen Betancourt No Panel InformationOrdered By: Isaías Jordan on 07-06-2022 Estimated GFR () > 60 mL/Min [facility] Comment on above: GFR estimated refere nce range: According to KDOQI guidelines, <60 ml/min/1.73m2 is sufficient to diagnose a patient with chronic kidney disease. Pharmacy Creatinine Clearance (Chem N/A [facility] PROF 14(COMP METB)on 022 Albumin [Mass/Vol] 4.2 g/dL Normal 3.4-5.[address] [facility] Comment on above: Result Comment: pref ormed at [facility]; ultrafuged specimen Performed By: #### C BC #### [facility] [address] [address] [address] Doreen Betancourt Albumin/Globulin [Mass ratio] 1.6 {ratio} Normal [facility] Comment on above: Performed By: #### C BC #### [facility] [address] [address] [address] Doreen Betancourt ALP [Catalytic activity/Vol] 102 U/L Normal 46-116 [facility] Comment on above: Result Comment: pref ormed at [facility]; ultrafuged specimen Performed By: #### C BC #### [facility] [address] [address] [address] Doreen Betancourt ALT [Catalytic activity/Vol] 38 U/L Normal 14-[address] [facility] Comment on above: Result Comment: pref ormed at [facility]; ultrafuged specimen Performed By: #### C BC #### [facility] [address] [place] [address] Dr. Doreen Betancourt Anion gap [Moles/Vol] 11.9 mmol/L Normal [facility] Comment on above: Performed By: #### C BC #### [facility] [address] [address] [address] Doreen Betancourt AST [Catalytic activity/Vol] 49 U/L Critically high 15-37 [facility] Comment on above: Result Comment: pref ormed at [facility]; ultrafuged specimen Performed By: #### C BC #### [facility] [address] [place] [address] Dr. Doreen Betancourt Bilirubin [Mass/Vol] 0.7 mg/dL Normal 0.2-1.[address] [facility] Comment on above: Result Comment: pref ormed at [facility]; ultrafuged specimen Performed By: #### C BC #### [facility] [address] [place] [address] Dr. Doreen Betancourt Calcium [Mass/Vol] 9.5 mg/dL Normal 8.5-10.1 [facility] Comment on above: Result Comment: pref ormed at [facility]; ultrafuged specimen Performed By: #### C BC #### [facility] [address] [place] [address] Dr. Doreen Betancourt Chloride [Moles/Vol] 101 mmol/L Normal 98-107 [facility] Comment on above: Result Comment: pref ormed at [facility]; ultrafuged specimen Performed By: #### C BC #### [facility] [address] [place] [address] Dr. Doreen Betancourt CO2 [Moles/Vol] 25.4 mmol/L Normal 21.0-32.[address] [facility] Comment on above: Result Comment: pref ormed at [facility]; ultrafuged specimen Performed By: #### C BC #### [facility] [address] [place] [address] Dr. Doreen Betancourt Creatinine [Mass/Vol] 0.43 mg/dL Critically low 0.55-1.[address] [facility] Comment on above: Result Comment: pref ormed at [facility]; ultrafuged specimen Performed By: #### C BC #### [facility] [address] [place] [address] Dr. Doreen Betancourt EGFR-AF TURKISH >60 Normal >=[address] [facility] Comment on above: Performed By: #### C BC #### [facility] [address] [place] [address] Dr. Doreen Betancourt EGFR-NON AF TURKISH >60 Normal >=[address] [facility] Comment on above: Performed By: #### C BC #### [facility] [address] [place] [address] Dr. Doreen Betancourt Globulin (S) [Mass/Vol] 2.6 g/dL Normal [facility] Comment on above: Performed By: #### C BC #### [facility] [address] [place] [address] Dr. Doreen Betancourt Glucose [Mass/Vol] 102 mg/dL Normal 74-106 [facility] Comment on above: Result Comment: pref ormed at [facility]; ultrafuged specimen Performed By: #### C BC #### [facility] [address] [place] [address] Dr. Doreen Betancourt Potassium [Moles/Vol] 5.3 mmol/L Critically high 3.5-5.[address] [facility] Comment on above: Result Comment: pref ormed at [facility]; ultrafuged specimen Performed By: #### C BC #### [facility] [address] [address] [address] Doreen Betancourt Protein [Mass/Vol] 6.8 g/dL Normal 6.4-8.[address] [facility] Comment on above: Result Comment: pref ormed at [facility]; ultrafuged specimen Performed By: #### C BC #### [facility] [address] [address] [address] Doreen Betancourt Sodium [Moles/Vol] 133 mmol/L Critically low 136-145 [facility] Comment on above: Result Comment: pref ormed at [facility]; ultrafuged specimen Performed By: #### C BC #### [facility] [address] [address] [address] Doreen Betancourt Urea nitrogen [Mass/Vol] 18.0 mg/dL Normal 7.0-18.[address] [facility] Comment on above: Result Comment: pref ormed at [facility]; ultrafuged specimen Performed By: #### C BC #### [facility] [address] [address] [address] Doreen Betancourt Urea nitrogen/Creatinine [Mass ratio] 41.6 mg/mg Normal [facility] Comment on above: Performed By: #### C BC #### [facility] [address] [address] [address] Doreen Betancourt Protein [Mass/volume] in Ser um or PlasmaOrdered By: Isaías Jordan on 07-06-2022 Protein [Mass/Vol] 6.8 g/dL 6.1-7.9 [facility] Serum or plasma alanine villalpando otransferase measurement without P-5'-P (enzymatic activiOrdered By: Isaías Jordan on 07-06-2022 ALT No additional P-5'-P [Catalytic activity/Vol] 38 U/L 10-60 [facility] Serum or plasma albumin/glob ulin mass ratioOrdered By: Isaías Jordan on 07-06-2022 Albumin/Globulin [Mass ratio] 1.6 {ratio} [facility] Serum or plasma alkaline joselito sphatase measurement (enzymatic activity/volume)Ordered By: Isaías Jordan on 07-06-2022 ALP [Catalytic activity/Vol] 102 U/L 32-92 [facility] Serum or plasma anion gap de terminationOrdered By: Isaías Jordan on 07-06-2022 Anion gap [Moles/Vol] 11.9 mmol/L 6.0-15.0 [facility] Serum or plasma aspartate am inotransferase measurement (enzymatic activity/volume)Ordered By: Isaías Jordan on 07-06-2022 AST [Catalytic activity/Vol] 49 U/L 10- [facility] Serum or plasma calcium idalmis urement (mass/volume)Ordered By: Isaías Jordan on 07-06-2022 Calcium [Mass/Vol] 9.5 mg/dL 8.2-10.2 [facility] Serum or plasma chloride jose surement (moles/volume)Ordered By: Isaías Jordan on 07-06-2022 Chloride [Moles/Vol] 101 mmol/L 95-114 [facility] Serum or plasma glucose idalmis urement (mass/volume)Ordered By: Isaías Jordan on 07-06-2022 Glucose [Mass/Vol] 102 mg/dL 70-100 [facility] Comment on above: ADA recommended refe rence rangeRandom Glucose Reference Range is dependent on time and content of last meal. Glucose of more than 200 mg/dL in a nonstressed, ambulatory subject supports the diagnosis of Diabetes Mellitus. Serum or plasma potassium me asurement (moles/volume)Ordered By: Isaías Jordan on 07-06-2022 Potassium [Moles/Vol] 5.3 mmol/L 3.5-5.1 [facility] Serum or plasma sodium measu rement (moles/volume)Ordered By: Isaías Jordan on 07-06-2022 Sodium [Moles/Vol] 133 mmol/L 136-146 [facility] Serum or plasma total biliru bin measurement (mass/volume)Ordered By: Isaías Jordan on 07-06-2022 Bilirubin [Mass/Vol] 0.7 mg/dL 0.3-1.2 [facility] Serum or plasma total carbon dioxide measurement (moles/volume)Ordered By: Isaías Jordan on 07-06-2022 CO2 [Moles/Vol] 25.4 mmol/L 22.0-30.0 [facility] Serum or plasma urea nitroge n measurement (mass/volume)Ordered By: Isaías Jordan on 07-06-2022 Urea nitrogen [Mass/Vol] 18 mg/dL 03-29 [facility] CBC AUTO DIFFon 06-22-2022 BASO # 0.0 103/ul Normal 0.0-0.1 [facility] Comment on above: Performed By: #### C BC #### [facility] [address] [address] [address] Doreen Betancourt Basophils/100 WBC (Bld) 0.5 % Normal 0.2-2.0 [facility] Comment on above: Performed By: #### C BC #### [facility] [address] [address] [address] Doreen Betancourt EO # 0.1 103/ul Normal 0.0-0.7 [facility] Comment on above: Performed By: #### C BC #### [facility] [address] [address] [address] Doreen Betancourt Eosinophils/100 WBC (Bld) 1.3 % Normal 0.9-7.0 [facility] Comment on above: Performed By: #### C BC #### [facility] [address] [address] [address] Doreen Betancourt Erythrocyte distribution width (RBC) [Ratio] 15.3 % Critically high 11.0-15.0 [facility] Comment on above: Performed By: #### C BC #### [facility] [address] [address] [address] Doreen Betancourt Hematocrit (Bld) [Volume fraction] 38.7 % Normal 36.0-48.0 [facility] Comment on above: Performed By: #### C BC #### [facility] [address] [address] [address] Doreen Betancourt Hemoglobin (Bld) [Mass/Vol] 12.5 g/dL Normal 12.0-16.0 [facility] Comment on above: Performed By: #### C BC #### [facility] [address] [place] [address] Dr. Doreen Betancourt IG # 0.01 10e3/ul Normal 0.00-0.[address] [facility] Comment on above: Performed By: #### C BC #### [facility] [address] [place] [address] Dr. Doreen Betancourt IG % 0.3 % Normal 0.0-0.[address] [facility] Comment on above: Performed By: #### C BC #### [facility] [address] [place] [address] Dr. Doreen Betancourt LYMPH # 1.8 103/ul Normal 1.2-3.[address] [facility] Comment on above: Performed By: #### C BC #### [facility] [address] [place] [address] Dr. Doreen Betancourt Lymphocytes/100 WBC (Bld) 46.0 % Normal 20.5-60.[address] [facility] Comment on above: Performed By: #### C BC #### [facility] [address] [place] [address] Dr. Doreen Betancourt MANUAL DIFF REQ NO Normal [facility] Comment on above: Performed By: #### C BC #### [facility] [address] [place] [address] Dr. Doreen Betancourt MCH (RBC) [Entitic mass] 30.0 pg Normal 26.7-34.[address] [facility] Comment on above: Performed By: #### C BC #### [facility] [address] [place] [address] Dr. Doreen Betancourt MCHC (RBC) [Mass/Vol] 32.3 g/dL Normal 29.9-35.[address] [facility] Comment on above: Performed By: #### C BC #### [facility] [address] [place] [address] Dr. Doreen Betancourt MCV (RBC) [Entitic vol] 93.0 fL Normal 81.0-99.[address] [facility] Comment on above: Performed By: #### C BC #### [facility] [address] [place] [address] Dr. Doreen Betancourt MONO # 0.4 103/ul Normal 0.3-0.[address] [facility] Comment on above: Performed By: #### C BC #### [facility] [address] [place] [address] Dr. Doreen Betancourt Monocytes/100 WBC (Bld) 9.5 % Normal 1.7-12.[address] [facility] Comment on above: Performed By: #### C BC #### [facility] [address] [place] [address] Dr. Doreen Betancourt NEUT # 1.7 103/ul Normal 1.4-6.[address] [facility] Comment on above: Performed By: #### C BC #### [facility] [address] [place] [address] Dr. Doreen Betancourt Neutrophils/100 WBC (Bld) 42.4 % Critically low 43.0-75.[address] [facility] Comment on above: Performed By: #### C BC #### [facility] [address] [place] [address] Dr. Doreen Betancourt Platelet mean volume (Bld) [Entitic vol] 9.9 fL Normal 9.5-13.5 [facility] Comment on above: Performed By: #### C BC #### [facility] [address] [place] [address] Dr. Doreen Betancourt PLT 178 103/ul Normal 150-450 [facility] Comment on above: Performed By: #### C BC #### [facility] [address] [place] [address] Dr. Doreen Betancourt RBC 4.16 106/ul Critically low 4.20-5.40 [facility] Comment on above: Performed By: #### C BC #### [facility] [address] [place] [address] Dr. Doreen Betancourt WBC 4.0 103/ul Normal 4.0-11.0 [facility] Comment on above: Performed By: #### C BC #### [facility] [address] [place] [address] Dr. Doreen Betancourt MAGNESIUMon 06-22-2022 Magnesium [Mass/Vol] 1.9 mg/dL Normal 1.8-2.[address] [facility] Comment on above: Performed By: #### M G, CMP #### [facility] [address] [place] [address] Dr. Doreen Betancourt PROF 14(COMP METB)on 022 Albumin [Mass/Vol] 3.7 g/dL Normal 3.4-5.[address] [facility] Comment on above: Performed By: #### M G, CMP #### [facility] [address] [place] [address] Dr. Doreen Betancourt Albumin/Globulin [Mass ratio] 1.1 {ratio} Normal [facility] Comment on above: Performed By: #### M G, CMP #### [facility] [address] [place] [address] Dr. Doreen Betancourt ALP [Catalytic activity/Vol] 125 U/L Critically high 46-[address] [facility] Comment on above: Performed By: #### Gay G, CMP #### [facility] [address] [place] [address] Dr. Doreen Betancourt ALT [Catalytic activity/Vol] 16 U/L Normal 14-[address] [facility] Comment on above: Performed By: #### M G, CMP #### [facility] [address] [place] [address] Dr. Doreen Betancourt Anion gap [Moles/Vol] 8.8 mmol/L Normal [facility] Comment on above: Performed By: #### M G, CMP #### [facility] [address] [place] [address] Dr. Doreen Betancourt AST [Catalytic activity/Vol] 5 U/L Critically low 15-37 [facility] Comment on above: Performed By: #### M G, CMP #### [facility] [address] [place] [address] Dr. Doreen Betancourt Bilirubin [Mass/Vol] 0.3 mg/dL Normal 0.2-1.[address] [facility] Comment on above: Performed By: #### M G, CMP #### [facility] [address] [place] [address] Dr. Doreen Betancourt Calcium [Mass/Vol] 8.8 mg/dL Normal 8.5-10.[address] [facility] Comment on above: Performed By: #### M G, CMP #### [facility] [address] [place] [address] Dr. Doreen Betancourt Chloride [Moles/Vol] 104 mmol/L Normal 98-[address] [facility] Comment on above: Performed By: #### M G, CMP #### [facility] [address] [place] [address] Dr. Doreen Betancourt CO2 [Moles/Vol] 29.5 mmol/L Normal 21.0-32.[address] [facility] Comment on above: Performed By: #### M G, CMP #### [facility] [address] [place] [address] Dr. Doreen Betancourt Creatinine [Mass/Vol] 0.75 mg/dL Normal 0.55-1.[address] [facility] Comment on above: Performed By: #### Gay G, CMP #### [facility] [address] [place] [address] Dr. Doreen Betancourt EGFR-AF TURKISH >60 Normal >=[address] [facility] Comment on above: Performed By: #### M G, CMP #### [facility] [address] [place] [address] Dr. Doreen Betancourt EGFR-NON AF TURKISH >60 Normal >=[address] [facility] Comment on above: Performed By: #### M G, CMP #### [facility] [address] [place] [address] Dr. Doreen Betancourt Globulin (S) [Mass/Vol] 3.3 g/dL Normal [facility] Comment on above: Performed By: #### M G, CMP #### [facility] [address] [place] [address] Dr. Doreen Betancourt Glucose [Mass/Vol] 110 mg/dL Critically high 74-106 [place] Comment on above: Performed By: #### M G, CMP #### [facility] [address] [place] [address] Dr. Doreen Betancourt Potassium [Moles/Vol] 4.3 mmol/L Normal 3.5-5.[address] [facility] Comment on above: Performed By: #### M G, CMP #### [facility] [address] [place] [address] Dr. Doreen Betancourt Protein [Mass/Vol] 7.0 g/dL Normal 6.4-8.2 [facility] Comment on above: Performed By: #### M G, CMP #### [facility] [address] [place] [address] Dr. Doreen Betancourt Sodium [Moles/Vol] 138 mmol/L Normal 136-145 [facility] Comment on above: Performed By: #### M G, CMP #### [facility] [address] [place] [address] Dr. Doreen Betancourt Urea nitrogen [Mass/Vol] 11.0 mg/dL Normal 7.0-18.[address] [facility] Comment on above: Performed By: #### M G, CMP #### [facility] [address] [place] [address] Dr. Doreen Betancourt Urea nitrogen/Creatinine [Mass ratio] 14.7 mg/mg Normal [facility] Comment on above: Performed By: #### M G, CMP #### [facility] [address] [place] [address] Dr. Doreen Betancourt CBC AUTO DIFFon 06-08-2022 BASO # 0.0 103/ul Normal 0.0-0.[address] [facility] Comment on above: Performed By: #### M G, CMP #### [facility] [address] [place] [address] Dr. Doreen Betancourt Basophils/100 WBC (Bld) 0.8 % Normal 0.2-2.0 [facility] Comment on above: Performed By: #### M G, CMP #### [facility] [address] [place] [address] Dr. Doreen Betancourt EO # 0.1 103/ul Normal 0.0-0.7 [facility] Comment on above: Performed By: #### M G, CMP #### [facility] [address] [place] [address] Dr. Doreen Betancourt Eosinophils/100 WBC (Bld) 2.3 % Normal 0.9-7.[address] [facility] Comment on above: Performed By: #### M G, CMP #### [facility] [address] [place] [address] Dr. Doreen Betancourt Erythrocyte distribution width (RBC) [Ratio] 14.5 % Normal 11.0-15.[address] [facility] Comment on above: Performed By: #### M G, CMP #### [facility] [address] [place] [address] Dr. Doreen Betancourt Hematocrit (Bld) [Volume fraction] 38.8 % Normal 36.0-48.[address] [facility] Comment on above: Performed By: #### M G, CMP #### [facility] [address] [place] [address] Dr. Doreen Betancourt Hemoglobin (Bld) [Mass/Vol] 12.6 g/dL Normal 12.0-16.[address] [facility] Comment on above: Performed By: #### M G, CMP #### [facility] [address] [place] [address] Dr. Doreen Betancourt IG # 0.00 10e3/ul Normal 0.00-0.03 [facility] Comment on above: Performed By: #### M G, CMP #### [facility] [address] [place] [address] Dr. Doreen Betancourt IG % 0.0 % Normal 0.0-0.5 [facility] Comment on above: Performed By: #### M G, CMP #### [facility] [address] [place] [address] Dr. Doreen Betancourt LYMPH # 1.9 103/ul Normal 1.2-3.8 [facility] Comment on above: Performed By: #### M G, CMP #### [facility] [address] [place] [address] Dr. Doreen Betancourt Lymphocytes/100 WBC (Bld) 46.7 % Normal 20.5-60.[address] [facility] Comment on above: Performed By: #### M G, CMP #### [facility] [address] [place] [address] Dr. Doreen Betancourt MANUAL DIFF REQ NO Normal [facility] Comment on above: Performed By: #### M G, CMP #### [facility] [address] [place] [address] Dr. Doreen Betancourt MCH (RBC) [Entitic mass] 30.3 pg Normal 26.7-34.0 [facility] Comment on above: Performed By: #### M G, CMP #### [facility] [address] [place] [address] Dr. Doreen Betancourt MCHC (RBC) [Mass/Vol] 32.5 g/dL Normal 29.9-35.2 [facility] Comment on above: Performed By: #### M G, CMP #### [facility] [address] [place] [address] Dr. Doreen Betancourt MCV (RBC) [Entitic vol] 93.3 fL Normal 81.0-99.0 [facility] [facility] Comment on above: Performed By: #### M G, CMP #### [facility] [address] [place] [address] Dr. Doreen Betancourt MONO # 0.4 103/ul Normal 0.3-0.8 [facility] Comment on above: Performed By: #### M G, CMP #### [facility] [address] [place] [address] Dr. Doreen Betancourt Monocytes/100 WBC (Bld) 11.1 % Normal 1.7-12.0 [facility] Comment on above: Performed By: #### M G, CMP #### [facility] [address] [place] [address] Dr. Doreen Betancourt NEUT # 1.6 103/ul Normal 1.4-6.5 [facility] Comment on above: Performed By: #### M G, CMP #### [facility] [address] [place] [address] Dr. Doreen Betancourt Neutrophils/100 WBC (Bld) 39.1 % Critically low 43.0-75.0 The [facility] Comment on above: Performed By: #### M G, CMP #### [facility] [address] [place] [address] Dr. Doreen Betancourt Platelet mean volume (Bld) [Entitic vol] 9.9 fL Normal 9.5-13.[address] [facility] Comment on above: Performed By: #### M G, CMP #### [facility] [address] [place] [address] Dr. Doreen Betancourt PLT 220 103/ul Normal 150-450 [facility] Comment on above: Performed By: #### M G, CMP #### [facility] [address] [place] [address] Dr. Doreen Betancourt RBC 4.16 106/ul Critically low 4.20-5.40 [facility] Comment on above: Performed By: #### M G, CMP #### [facility] [address] [place] [address] Dr. Doreen Betancourt WBC 4.0 103/ul Normal 4.0-11.0 The [facility] Comment on above: Performed By: #### M G, CMP #### [facility] [address] [place] [address] Dr. Doreen Betancourt MAGNESIUMon 06-08-2022 Magnesium [Mass/Vol] 2.2 mg/dL Normal 1.8-2.[address] [facility] Comment on above: Performed By: #### C VDTBH #### [facility] [address] [place] [address] Dr. Doreen Betancourt PROF 14(COMP METB)on 022 Albumin [Mass/Vol] 3.9 g/dL Normal 3.4-5.[address] [facility] Comment on above: Performed By: #### C VDTBH #### [facility] [address] [place] [address] Dr. Doreen Betancourt Albumin/Globulin [Mass ratio] 1.1 {ratio} Normal [facility] Comment on above: Performed By: #### C VDTBH #### [facility] [address] [place] [address] Dr. Doreen Betancourt ALP [Catalytic activity/Vol] 100 U/L Normal 46-116 [facility] Comment on above: Performed By: #### C VDTBH #### [facility] [address] [address] [address] Doreen Betancourt ALT [Catalytic activity/Vol] 19 U/L Normal 14-[address] [facility] Comment on above: Performed By: #### C VDTBH #### [facility] [address] [address] [address] Doreen Betancourt Anion gap [Moles/Vol] 6.9 mmol/L Normal [facility] Comment on above: Performed By: #### C VDTBH #### [facility] [address] [address] [address] Doreen Betancourt AST [Catalytic activity/Vol] 14 U/L Critically low 15-[address] [facility] Comment on above: Performed By: #### C VDTBH #### [facility] [address] [place] [address] Dr. Doreen Betancourt Bilirubin [Mass/Vol] 0.3 mg/dL Normal 0.2-1.[address] [facility] Comment on above: Performed By: #### C VDTBH #### [facility] [address] [place] [address] Dr. Doreen Betancourt Calcium [Mass/Vol] 9.6 mg/dL Normal 8.5-10.[address] [facility] Comment on above: Performed By: #### C VDTBH #### [facility] [address] [place] [address] Dr. Doreen Betancourt Chloride [Moles/Vol] 105 mmol/L Normal 98-107 [facility] Comment on above: Performed By: #### C VDTBH #### [facility] [address] [address] [address] Doreen Betancourt CO2 [Moles/Vol] 32.2 mmol/L Critically high 21.0-32.[address] [facility] Comment on above: Performed By: #### C VDTBH #### [facility] [address] [place] [address] Dr. Doreen Betancourt Creatinine [Mass/Vol] 0.69 mg/dL Normal 0.55-1.[address] [facility] Comment on above: Performed By: #### C VDTBH #### [facility] [address] [address] [address] Doreen Betancourt EGFR-AF TURKISH >60 Normal >=60 [facility] Comment on above: Performed By: #### C VDTBH #### [facility] [address] [address] [address] Doreen Betancourt EGFR-NON AF TURKISH >60 Normal >=60 [facility] Comment on above: Performed By: #### C VDTBH #### [facility] [address] [address] [address] Doreen Betancourt Globulin (S) [Mass/Vol] 3.6 g/dL Normal [facility] Comment on above: Performed By: #### C VDTBH #### [facility] [address] [place] [address] Dr. Doreen Betancourt Glucose [Mass/Vol] 103 mg/dL Normal 74-106 [facility] Comment on above: Performed By: #### C VDTBH #### [facility] [address] [place] [address] Dr. Doreen Betancourt Potassium [Moles/Vol] 5.1 mmol/L Normal 3.5-5.1 [facility] Comment on above: Performed By: #### C VDTBH #### [facility] [address] [place] [address] Dr. Doreen Betancourt Protein [Mass/Vol] 7.5 g/dL Normal 6.4-8.2 [facility] Comment on above: Performed By: #### C VDTBH #### [facility] [address] [place] [address] Dr. Doreen Betancourt Sodium [Moles/Vol] 139 mmol/L Normal 136-145 [facility] Comment on above: Performed By: #### C VDTBH #### [facility] [address] [place] [address] Dr. Doreen Betancourt Urea nitrogen [Mass/Vol] 13.0 mg/dL Normal 7.0-18.0 [facility] Comment on above: Performed By: #### C VDTBH #### [facility] [address] [place] [address] Dr. Doreen Betancourt Urea nitrogen/Creatinine [Mass ratio] 18.8 mg/mg Normal [facility] Comment on above: Performed By: #### C VDTBH #### [facility] [address] [place] [address] Dr. Doreen Betancourt CBC AUTO DIFFon 06-01-2022 BASO # 0.0 103/ul Normal 0.0-0.[address] [facility] Comment on above: Performed By: #### C BC #### [facility] [address] [place] [address] Dr. Doreen Betancourt Basophils/100 WBC (Bld) 0.7 % Normal 0.2-2.[address] [facility] Comment on above: Performed By: #### C BC #### [facility] [address] [place] [address] Dr. Doreen Betancourt EO # 0.1 103/ul Normal 0.0-0.[address] [facility] Comment on above: Performed By: #### C BC #### [facility] [address] [place] [address] Dr. Doreen Betancourt Eosinophils/100 WBC (Bld) 2.0 % Normal 0.9-7.[address] [facility] Comment on above: Performed By: #### C BC #### [facility] [address] [place] [address] Dr. Doreen Betancourt Erythrocyte distribution width (RBC) [Ratio] 13.9 % Normal 11.0-15.0 [facility] Comment on above: Performed By: #### C BC #### [facility] [address] [place] [address] Dr. Doreen Betancourt Hematocrit (Bld) [Volume fraction] 41.2 % Normal 36.0-48.[address] [facility] Comment on above: Performed By: #### C BC #### [facility] [address] [place] [address] Dr. Doreen Betancourt Hemoglobin (Bld) [Mass/Vol] 13.2 g/dL Normal 12.0-16.[address] [facility] Comment on above: Performed By: #### C BC #### [facility] [address] [place] [address] Dr. Doreen Betancourt IG # 0.01 10e3/ul Normal 0.00-0.[address] [facility] Comment on above: Performed By: #### C BC #### [facility] [address] [place] [address] Dr. Doreen Betancourt IG % 0.2 % Normal 0.0-0.[address] [facility] Comment on above: Performed By: #### C BC #### [facility] [address] [place] [address] Dr. Doreen Betancourt LYMPH # 1.9 103/ul Normal 1.2-3.[address] [facility] Comment on above: Performed By: #### C BC #### [facility] [address] [place] [address] Dr. Doreen Betancourt Lymphocytes/100 WBC (Bld) 41.0 % Normal 20.5-60.[address] [facility] Comment on above: Performed By: #### C BC #### [facility] [address] [place] [address] Dr. Doreen Betancourt MANUAL DIFF REQ NO Normal [facility] Comment on above: Performed By: #### C BC #### [facility] [address] [place] [address] Dr. Doreen Betancourt MCH (RBC) [Entitic mass] 29.3 pg Normal 26.7-34.[address] [facility] Comment on above: Performed By: #### C BC #### [facility] [address] [place] [address] Dr. Doreen Betancourt MCHC (RBC) [Mass/Vol] 32.0 g/dL Normal 29.9-35.2 [facility] Comment on above: Performed By: #### C BC #### [facility] [address] [place] [address] Dr. Doreen Betancourt MCV (RBC) [Entitic vol] 91.6 fL Normal 81.0-99.[address] [facility] Comment on above: Performed By: #### C BC #### [facility] [address] [place] [address] Dr. Doreen Betancourt MONO # 0.1 103/ul Critically low 0.3-0.[address] [facility] Comment on above: Performed By: #### C BC #### [facility] [address] [place] [address] Dr. Doreen Betancourt Monocytes/100 WBC (Bld) 1.5 % Critically low 1.7-12.0 [facility] Comment on above: Performed By: #### C BC #### [facility] [address] [place] [address] Dr. Doreen Betancourt NEUT # 2.5 103/ul Normal 1.4-6.5 [facility] Comment on above: Performed By: #### C BC #### [facility] [address] [place] [address] Dr. Doreen Betancourt Neutrophils/100 WBC (Bld) 54.6 % Normal 43.0-75.[address] [facility] Comment on above: Performed By: #### C BC #### [facility] [address] [place] [address] Dr. Doreen Betancourt Platelet mean volume (Bld) [Entitic vol] 10.5 fL Normal 9.5-13.5 [facility] Comment on above: Performed By: #### C BC #### [facility] [address] [place] [address] Dr. Doreen Betancourt PLT 270 103/ul Normal 150-450 [facility] Comment on above: Performed By: #### C BC #### [facility] [address] [place] [address] Dr. Doreen Betancourt RBC 4.50 106/ul Normal 4.20-5.40 [facility] Comment on above: Performed By: #### C BC #### [facility] [address] [place] [address] Dr. Doreen Betancourt WBC 4.6 103/ul Normal 4.0-11.0 [facility] Comment on above: Performed By: #### C BC #### [facility] [address] [place] [address] Dr. Doreen Betancourt PROF 14(COMP METB)on 022 Albumin [Mass/Vol] 3.9 g/dL Normal 3.4-5.[address] [facility] Comment on above: Performed By: #### C BC #### [facility] [address] [place] [address] Dr. Doreen Betancourt Albumin/Globulin [Mass ratio] 1.0 {ratio} Normal [facility] Comment on above: Performed By: #### C BC #### [facility] [address] [place] [address] Dr. Doreen Betancourt ALP [Catalytic activity/Vol] 83 U/L Normal 46-[address] [facility] Comment on above: Performed By: #### C BC #### [facility] [address] [place] [address] Dr. Doreen Betancourt ALT [Catalytic activity/Vol] 22 U/L Normal 14-[address] [facility] Comment on above: Performed By: #### C BC #### [facility] [address] [place] [address] Dr. Doreen Betancourt Anion gap [Moles/Vol] 12.6 mmol/L Normal [facility] Comment on above: Performed By: #### C BC #### [facility] [address] [place] [address] Dr. Doreen Betancourt AST [Catalytic activity/Vol] 16 U/L Normal 15-[address] [facility] Comment on above: Performed By: #### C BC #### [facility] [address] [place] [address] Dr. Doreen Betancourt Bilirubin [Mass/Vol] 0.6 mg/dL Normal 0.2-1.[address] [facility] Comment on above: Performed By: #### C BC #### [facility] [address] [place] [address] Dr. Doreen Betancourt Calcium [Mass/Vol] 9.4 mg/dL Normal 8.5-10.[address] [facility] Comment on above: Performed By: #### C BC #### [facility] [address] [place] [address] Dr. Doreen Betancourt Chloride [Moles/Vol] 101 mmol/L Normal 98-[address] [facility] Comment on above: Performed By: #### C BC #### [facility] [address] [place] [address] Dr. Doreen Betancourt CO2 [Moles/Vol] 25.9 mmol/L Normal 21.0-32.[address] [facility] Comment on above: Performed By: #### C BC #### [facility] [address] [place] [address] Dr. Doreen Betancourt Creatinine [Mass/Vol] 0.64 mg/dL Normal 0.55-1.[address] [facility] Comment on above: Performed By: #### C BC #### [facility] [address] [place] [address] Dr. Doreen Betancourt EGFR-AF TURKISH >60 Normal >=[address] [facility] Comment on above: Performed By: #### C BC #### [facility] [address] [place] [address] Dr. Doreen Betancourt EGFR-NON AF TURKISH >60 Normal >=[address] [facility] Comment on above: Performed By: #### C BC #### [facility] [address] [place] [address] Dr. Doreen Betancourt Globulin (S) [Mass/Vol] 3.9 g/dL Normal [facility] Comment on above: Performed By: #### C BC #### [facility] [address] [place] [address] Dr. Doreen Betancourt Glucose [Mass/Vol] 135 mg/dL Critically high 74-106 T [facility] Comment on above: Performed By: #### C BC #### [facility] [address] [place] [address] Dr. Doreen Betancourt Potassium [Moles/Vol] 4.5 mmol/L Normal 3.5-5.1 [facility] Comment on above: Performed By: #### C BC #### [facility] [address] [place] [address] Dr. Doreen Betancourt Protein [Mass/Vol] 7.8 g/dL Normal 6.4-8.2 [facility] Comment on above: Performed By: #### C BC #### [facility] [address] [place] [address] Dr. Doreen Betancourt Sodium [Moles/Vol] 135 mmol/L Critically low 136-145 Th e [facility] Comment on above: Performed By: #### C BC #### [facility] [address] [place] [address] Dr. Doreen Betancourt Urea nitrogen [Mass/Vol] 15.0 mg/dL Normal 7.0-18.[address] [facility] Comment on above: Performed By: #### C BC #### [facility] [address] [place] [address] Dr. Doreen Betancourt Urea nitrogen/Creatinine [Mass ratio] 23.4 mg/mg Normal [facility] Comment on above: Performed By: #### C BC #### [facility] [address] [place] [address] Dr. Doreen Betancourt CBC AUTO DIFFon 05-22-2022 BASO # 0.0 103/ul Normal 0.0-0.[address] [facility] Comment on above: Performed By: #### C VDTBH #### [facility] [address] [place] [address] Dr. Doreen Betancourt Basophils/100 WBC (Bld) 0.8 % Normal 0.2-2.[address] [facility] Comment on above: Performed By: #### C VDTBH #### [facility] [address] [place] [address] Dr. Doreen Betancourt EO # 0.1 103/ul Normal 0.0-0.[address] [facility] Comment on above: Performed By: #### C VDTBH #### [facility] [address] [place] [address] Dr. Doreen Betancourt Eosinophils/100 WBC (Bld) 2.7 % Normal 0.9-7.[address] [facility] Comment on above: Performed By: #### C VDTBH #### [facility] [address] [place] [address] Dr. Doreen Betancourt Erythrocyte distribution width (RBC) [Ratio] 13.9 % Normal 11.0-15.[address] [facility] Comment on above: Performed By: #### C VDTBH #### [facility] [address] [place] [address] Dr. Doreen Betancourt Hematocrit (Bld) [Volume fraction] 40.9 % Normal 36.0-48.[address] [facility] Comment on above: Performed By: #### C VDTBH #### [facility] [address] [place] [address] Dr. Doreen Betancourt Hemoglobin (Bld) [Mass/Vol] 13.1 g/dL Normal 12.0-16.[address] [facility] Comment on above: Performed By: #### C VDTBH #### [facility] [address] [place] [address] Dr. Doreen Betancourt IG # 0.01 10e3/ul Normal 0.00-0.[address] [facility] Comment on above: Performed By: #### C VDTBH #### [facility] [address] [place] [address] Dr. Doreen Betancourt IG % 0.2 % Normal 0.0-0.[address] [facility] Comment on above: Performed By: #### C VDTBH #### [facility] [address] [place] [address] Dr. Doreen Betancourt LYMPH # 1.9 103/ul Normal 1.2-3.[address] [facility] Comment on above: Performed By: #### C VDTBH #### [facility] [address] [place] [address] Dr. Doreen Betancourt Lymphocytes/100 WBC (Bld) 39.1 % Normal 20.5-60.0 [facility] Comment on above: Performed By: #### C VDTBH #### [facility] [address] [place] [address] Dr. Doreen Betancourt MANUAL DIFF REQ NO Normal [facility] Comment on above: Performed By: #### C VDTBH #### [facility] [address] [place] [address] Dr. Doreen Betancourt MCH (RBC) [Entitic mass] 29.6 pg Normal 26.7-34.[address] [facility] Comment on above: Performed By: #### C VDTBH #### [facility] [address] [place] [address] Dr. Doreen Betancourt MCHC (RBC) [Mass/Vol] 32.0 g/dL Normal 29.9-35.2 [facility] Comment on above: Performed By: #### C VDTBH #### [facility] [address] [place] [address] Dr. Doreen Betancourt MCV (RBC) [Entitic vol] 92.3 fL Normal 81.0-99.[address] [facility] Comment on above: Performed By: #### C VDTBH #### [facility] [address] [place] [address] Dr. Doreen Betancourt MONO # 0.4 103/ul Normal 0.3-0.[address] [facility] Comment on above: Performed By: #### C VDTBH #### [facility] [address] [place] [address] Dr. Doreen Betancourt Monocytes/100 WBC (Bld) 7.6 % Normal 1.7-12.[address] [facility] Comment on above: Performed By: #### C VDTBH #### [facility] [address] [place] [address] Dr. Doreen Betancourt NEUT # 2.4 103/ul Normal 1.4-6.[address] [facility] Comment on above: Performed By: #### C VDTBH #### [facility] [address] [place] [address] Dr. Doreen Betancourt Neutrophils/100 WBC (Bld) 49.6 % Normal 43.0-75.0 [facility] Comment on above: Performed By: #### C VDTBH #### [facility] [address] [place] [address] Dr. Doreen Betancourt Platelet mean volume (Bld) [Entitic vol] 10.3 fL Normal 9.5-13.[address] [facility] Comment on above: Performed By: #### C VDTBH #### [facility] [address] [place] [address] Dr. Doreen Betancourt PLT 274 103/ul Normal 150-450 [facility] Comment on above: Performed By: #### C VDTBH #### [facility] [address] [place] [address] Dr. Doreen Betancourt RBC 4.43 106/ul Normal 4.20-5.40 [facility] Comment on above: Performed By: #### C VDTBH #### [facility] [address] [place] [address] Dr. Doreen Betancourt WBC 4.9 103/ul Normal 4.0-11.0 [facility] Comment on above: Performed By: #### C VDTBH #### [facility] [address] [place] [address] Dr. Doreen Betancourt MAGNESIUMon 05-22-2022 Magnesium [Mass/Vol] 2.1 mg/dL Normal 1.8-2.[address] [facility] Comment on above: Performed By: #### M G, CMP #### [facility] [address] [place] [address] Dr. Doreen Betancourt PREG HCG QUALon 05-22-2022 , QUAL Negative Normal NEGATIVE [facility] Comment on above: Performed By: #### M G, CMP #### [facility] [address] [place] [address] Dr. Doreen Betancourt PROF 14(COMP METB)on 022 Albumin [Mass/Vol] 3.9 g/dL Normal 3.4-5.[address] [facility] [facility] Comment on above: Performed By: #### M G, CMP #### [facility] [address] [place] [address] Dr. Doreen Betancourt Albumin/Globulin [Mass ratio] 1.1 {ratio} Normal [facility] Comment on above: Performed By: #### M G, CMP #### [facility] [address] [place] [address] Dr. Doreen Betancourt ALP [Catalytic activity/Vol] 81 U/L Normal 46-116 [facility] Comment on above: Performed By: #### M G, CMP #### [facility] [address] [place] [address] Dr. Doreen Betancourt ALT [Catalytic activity/Vol] 27 U/L Normal 14-[address] [facility] Comment on above: Performed By: #### M G, CMP #### [facility] [address] [place] [address] Dr. Doreen Betancourt Anion gap [Moles/Vol] 8.6 mmol/L Normal [facility] Comment on above: Performed By: #### M G, CMP #### [facility] [address] [place] [address] Dr. Doreen Betancourt AST [Catalytic activity/Vol] 23 U/L Normal 15-[address] [facility] Comment on above: Performed By: #### M G, CMP #### [facility] [address] [place] [address] Dr. Doreen Betancourt Bilirubin [Mass/Vol] 0.3 mg/dL Normal 0.2-1.[address] [facility] Comment on above: Performed By: #### M G, CMP #### [facility] [address] [place] [address] Dr. Doreen Betancourt Calcium [Mass/Vol] 9.5 mg/dL Normal 8.5-10.[address] [facility] Comment on above: Performed By: #### M G, CMP #### [facility] [address] [place] [address] Dr. Doreen Betancourt Chloride [Moles/Vol] 104 mmol/L Normal 98-107 [facility] Comment on above: Performed By: #### M G, CMP #### [facility] [address] [place] [address] Dr. Doreen Betancoutr CO2 [Moles/Vol] 31.8 mmol/L Normal 21.0-32.0 [facility] Comment on above: Performed By: #### M G, CMP #### [facility] [address] [place] [address] Dr. Doreen Betancourt Creatinine [Mass/Vol] 0.59 mg/dL Normal 0.55-1.[address] [facility] Comment on above: Performed By: #### M G, CMP #### [facility] [address] [place] [address] Dr. Doreen Betancourt EGFR-AF TURKISH >60 Normal >=[address] [facility] Comment on above: Performed By: #### M G, CMP #### [facility] [address] [place] [address] Dr. Doreen Betancourt EGFR-NON AF TURKISH >60 Normal >=[address] [facility] Comment on above: Performed By: #### M G, CMP #### [facility] [address] [place] [address] Dr. Doreen Betancourt Globulin (S) [Mass/Vol] 3.7 g/dL Normal [facility] Comment on above: Performed By: #### M G, CMP #### [facility] [address] [place] [address] Dr. Doreen Betancourt Glucose [Mass/Vol] 110 mg/dL Critically high 74-106 [facility] Comment on above: Performed By: #### M G, CMP #### [facility] [address] [place] [address] Dr. Doreen Betancourt Potassium [Moles/Vol] 4.4 mmol/L Normal 3.5-5.[address] [facility] Comment on above: Performed By: #### M G, CMP #### [facility] [address] [place] [address] Dr. Doreen Betancourt Protein [Mass/Vol] 7.6 g/dL Normal 6.4-8.[address] [facility] Comment on above: Performed By: #### M G, CMP #### [facility] [address] [place] [address] Dr. Doreen Betancourt Sodium [Moles/Vol] 140 mmol/L Normal 136-[address] [facility] Comment on above: Performed By: #### M G, CMP #### [facility] [address] [place] [address] Dr. Doreen Betancourt Urea nitrogen [Mass/Vol] 17.0 mg/dL Normal 7.0-18.[address] [facility] Comment on above: Performed By: #### M G, CMP #### [facility] [address] [place] [address] Dr. Doreen Betancourt Urea nitrogen/Creatinine [Mass ratio] 28.8 mg/mg Normal [facility] Comment on above: Performed By: #### M G, [facility] #### [facility] [address] [address] [address] Doreen Betancourt XR CHEST 1 Von [...] NEDA COULTER Date: 2022-05-22 11:22 Normal [facility] Covid-19 PCR (CVDTB)on 05-07 SARS-CoV-2 (COVID-19) RNA MARIVEL+probe Ql (Unsp spec) Not detected Normal NOT DETECTED [facility] Comment on above: Result Comment: This test is not yet approved or cleared by the [place] FDA. When there are no FDA-approved or cleared tests available, and other criteria are met, FDA can make tests available under an emergency access mechanism called an Emergency Use Authorization (EUA). The EUA for this test is supported by the [employer] of Health and Human Service's (HHS's) declaration [...] consistent with SARS-CoV-2. Performed By: #### C VDTBH #### [facility] [address] [place] [address] Dr. Doreen Betancourt CBC AUTO DIFFon 04-13-2022 BASO # 0.0 103/ul Normal 0.0-0.[address] [facility] Comment on above: Performed By: #### M G, CMP #### [facility] [address] [place] [address] Dr. Doreen Betancourt Basophils/100 WBC (Bld) 0.4 % Normal 0.2-2.[address] [facility] Comment on above: Performed By: #### M G, CMP #### [facility] [address] [place] [address] Dr. Doreen Betancourt EO # 0.1 103/ul Normal 0.0-0.7 [facility] Comment on above: Performed By: #### M G, CMP #### [facility] [address] [place] [address] Dr. Doreen Betancourt Eosinophils/100 WBC (Bld) 0.7 % Critically low 0.9-7.[address] [facility] Comment on above: Performed By: #### M G, CMP #### [facility] [address] [place] [address] Dr. Doreen Betancourt Erythrocyte distribution width (RBC) [Ratio] 12.9 % Normal 11.0-15.[address] [facility] Comment on above: Performed By: #### M G, CMP #### [facility] [address] [place] [address] Dr. Doreen Betancourt Hematocrit (Bld) [Volume fraction] 32.5 % Critically low 36.0-48.[address] [facility] Comment on above: Performed By: #### M G, CMP #### [facility] [address] [place] [address] Dr. Doreen Betancourt Hemoglobin (Bld) [Mass/Vol] 10.6 g/dL Critically low 12.0-16.[address] [facility] Comment on above: Performed By: #### M G, CMP #### [facility] [address] [place] [address] Dr. Doreen Betancourt IG # 0.02 10e3/ul Normal 0.00-0.03 [facility] Comment on above: Performed By: #### M G, CMP #### [facility] [address] [address] [address] Doreen Betancourt IG % 0.3 % Normal 0.0-0.[address] [facility] Comment on above: Performed By: #### M G, CMP #### [facility] [address] [address] [address] Doreen Betancourt LYMPH # 2.2 103/ul Normal 1.2-3.[address] [facility] Comment on above: Performed By: #### M G, CMP #### [facility] [address] [address] [address] Doreen Betancourt Lymphocytes/100 WBC (Bld) 32.0 % Normal 20.5-60.[address] [facility] Comment on above: Performed By: #### M G, CMP #### [facility] [address] [place] [address] Dr. Doreen Betancourt MANUAL DIFF REQ NO Normal [facility] Comment on above: Performed By: #### M G, CMP #### [facility] [address] [place] [address] Dr. Doreen Betancourt MCH (RBC) [Entitic mass] 30.5 pg Normal 26.7-34.[address] [facility] Comment on above: Performed By: #### M G, CMP #### [facility] [address] [place] [address] Dr. Doreen Betancourt MCHC (RBC) [Mass/Vol] 32.6 g/dL Normal 29.9-35.[address] [facility] Comment on above: Performed By: #### M G, CMP #### [facility] [address] [address] [address] Doreen Betancourt MCV (RBC) [Entitic vol] 93.4 fL Normal 81.0-99.[address] [facility] Comment on above: Performed By: #### M G, CMP #### [facility] [address] [address] [address] Doreen Betancourt MONO # 0.6 103/ul Normal 0.3-0.[address] [facility] Comment on above: Performed By: #### M G, CMP #### [facility] [address] [place] [address] Dr. Doreen Betancourt Monocytes/100 WBC (Bld) 8.3 % Normal 1.7-12.[address] [facility] Comment on above: Performed By: #### M G, CMP #### [facility] [address] [place] [address] Dr. Doreen Betancourt NEUT # 3.9 103/ul Normal 1.4-6.[address] [facility] Comment on above: Performed By: #### M G, CMP #### [facility] [address] [place] [address] Dr. Doreen Betancourt Neutrophils/100 WBC (Bld) 58.3 % Normal 43.0-75.[address] [facility] Comment on above: Performed By: #### M G, CMP #### [facility] [address] [place] [address] Dr. Doreen Betancourt Platelet mean volume (Bld) [Entitic vol] 10.4 fL Normal 9.5-13.[address] [facility] Comment on above: Performed By: #### M G, CMP #### [facility] [address] [place] [address] Dr. Doreen Betancourt PLT 213 103/ul Normal 150-450 [facility] Comment on above: Performed By: #### M G, CMP #### [facility] [address] [place] [address] Dr. Doreen Betancourt RBC 3.48 106/ul Critically low 4.20-5.[address] [facility] Comment on above: Performed By: #### M G, CMP #### [facility] [address] [place] [address] Dr. Doreen Betancourt WBC 6.8 103/ul Normal 4.0-11.0 [facility] Comment on above: Performed By: #### M G, CMP #### [facility] [address] [place] [address] Dr. Doreen Betancourt PROF CHEM 8 (BAS METB)on 10- 08-2022 Anion gap [Moles/Vol] 7.3 mmol/L Normal [facility] Comment on above: Performed By: #### M G, CMP #### [facility] [address] [place] [address] Dr. Doreen Betancourt Calcium [Mass/Vol] 8.8 mg/dL Normal 8.5-10.1 [facility] Comment on above: Performed By: #### M G, CMP #### [facility] [address] [place] [address] Dr. Doreen Betancourt Chloride [Moles/Vol] 105 mmol/L Normal 98-107 [facility] Comment on above: Performed By: #### M G, CMP #### [facility] [address] [place] [address] Dr. Doreen Betancourt CO2 [Moles/Vol] 27.8 mmol/L Normal 21.0-32.[address] [facility] Comment on above: Performed By: #### M G, CMP #### [facility] [address] [place] [address] Dr. Doreen Betancourt Creatinine [Mass/Vol] 0.57 mg/dL Normal 0.55-1.02 [facility] Comment on above: Performed By: #### M G, CMP #### [facility] [address] [place] [address] Dr. Doreen Betancourt EGFR-AF TURKISH >60 Normal >=60 [facility] Comment on above: Performed By: #### M G, CMP #### [facility] [address] [place] [address] Dr. Doreen Betancourt EGFR-NON AF TURKISH >60 Normal >=60 [facility] Comment on above: Performed By: #### M G, CMP #### [facility] [address] [place] [address] Dr. Doreen Betancourt Glucose [Mass/Vol] 93 mg/dL Normal 74-106 [facility] Comment on above: Performed By: #### M G, CMP #### [facility] [address] [place] [address] Dr. Dorene Betancourt Potassium [Moles/Vol] 4.1 mmol/L Normal 3.5-5.1 [facility] Comment on above: Performed By: #### M G, CMP #### [facility] [address] [place] [address] Dr. Doreen Betancourt Sodium [Moles/Vol] 136 mmol/L Normal 136-145 [facility] Comment on above: Performed By: #### M G, CMP #### [facility] [address] [place] [address] Dr. Doreen Betancourt Urea nitrogen [Mass/Vol] 5.0 mg/dL Critically low 7.0-18.[address] [facility] Comment on above: Performed By: #### M G, CMP #### [facility] [address] [place] [address] Dr. Doreen Betancourt Urea nitrogen/Creatinine [Mass ratio] 8.8 mg/mg Normal [facility] Comment on above: Performed By: #### M G, CMP #### [facility] [address] [place] [address] Dr. Doreen Betancourt PROF CHEM 8 (BAS METB)on Anion gap [Moles/Vol] 9.6 mmol/L Normal [facility] Comment on above: Performed By: #### C VDTBH #### [facility] [address] [place] [address] Dr. Doreen Betancourt Calcium [Mass/Vol] 8.8 mg/dL Normal 8.5-10.1 [facility] Comment on above: Performed By: #### C VDTBH #### [facility] [address] [place] [address] Dr. Doreen Betancourt Chloride [Moles/Vol] 101 mmol/L Normal 98-107 [facility] Comment on above: Performed By: #### C VDTBH #### [facility] [address] [place] [address] Dr. Doreen Betancourt CO2 [Moles/Vol] 26.8 mmol/L Normal 21.0-32.0 [facility] Comment on above: Performed By: #### C VDTBH #### [facility] [address] [place] [address] Dr. Doreen Betancourt Creatinine [Mass/Vol] 0.53 mg/dL Critically low 0.55-1.[address] [facility] Comment on above: Performed By: #### C VDTBH #### [facility] [address] [place] [address] Dr. Doreen Betancourt EGFR-AF TURKISH >60 Normal >=[address] [facility] Comment on above: Performed By: #### C VDTBH #### [facility] [address] [place] [address] Dr. Doreen Betancourt EGFR-NON AF TURKISH >60 Normal >=[address] [facility] Comment on above: Performed By: #### C VDTBH #### [facility] [address] [place] [address] Dr. Doreen Betancourt Glucose [Mass/Vol] 122 mg/dL Critically high 74-106 T [facility] Comment on above: Performed By: #### C VDTBH #### [facility] [address] [place] [address] Dr. Doreen Betancourt Potassium [Moles/Vol] 3.4 mmol/L Critically low 3.5-5.[address] [facility] Comment on above: Performed By: #### C VDTBH #### [facility] [address] [place] [address] Dr. Doreen Betancourt Sodium [Moles/Vol] 134 mmol/L Critically low 136-145 [facility] Comment on above: Performed By: #### C VDTBH #### [facility] [address] [place] [address] Dr. Doreen Betancourt Urea nitrogen [Mass/Vol] 6.0 mg/dL Critically low 7.0-18.[address] [facility] Comment on above: Performed By: #### C VDTBH #### [facility] [address] [place] [address] Dr. Doreen Betancourt Urea nitrogen/Creatinine [Mass ratio] 11.3 mg/mg Normal [facility] Comment on above: Performed By: #### C VDTBH #### [facility] [address] [place] [address] Dr. Doreen Betancourt CBC AUTO DIFFon 04-11-2022 BASO # 0.0 103/ul Normal 0.0-0.[address] [facility] Comment on above: Performed By: #### M G, CMP #### [facility] [address] [place] [address] Dr. Doreen Betancourt Basophils/100 WBC (Bld) 0.1 % Critically low 0.2-2.[address] [facility] Comment on above: Performed By: #### M G, CMP #### [facility] [address] [place] [address] Dr. Doreen Betancourt EO # 0.0 103/ul Normal 0.0-0.[address] [facility] Comment on above: Performed By: #### M G, CMP #### [facility] [address] [place] [address] Dr. Doreen Betancourt Eosinophils/100 WBC (Bld) 0.0 % Critically low 0.9-7.[address] [facility] Comment on above: Performed By: #### Gay Martino, CMP #### [facility] [address] [place] [address] Dr. Doreen Betancourt Erythrocyte distribution width (RBC) [Ratio] 13.0 % Normal 11.0-15.[address] [facility] Comment on above: Performed By: #### M Sal[place], CMP #### [facility] [address] [place] [address] Dr. Doreen Betancourt Hematocrit (Bld) [Volume fraction] 35.6 % Critically low 36.0-48.[address] [facility] Comment on above: Performed By: #### M [place], CMP #### [facility] [address] [place] [address] Dr. Doreen Betancourt Hemoglobin (Bld) [Mass/Vol] 11.5 g/dL Critically low 12.0-16.[address] [facility] Comment on above: Performed By: #### M G, CMP #### [facility] [address] [place] [address] Dr. Doreen Betancourt IG # 0.02 10e3/ul Normal 0.00-0.[address] [facility] Comment on above: Performed By: #### M G, CMP #### [facility] [address] [address] [address] Doreen Betancourt IG % 0.2 % Normal 0.0-0.[address] [facility] Comment on above: Performed By: #### M G, CMP #### [facility] [address] [place] [address] Dr. Doreen Betancourt LYMPH # 1.3 103/ul Normal 1.2-3.8 [facility] Comment on above: Performed By: #### M G, CMP #### [facility] [address] [place] [address] Dr. Doreen Betancourt Lymphocytes/100 WBC (Bld) 12.4 % Critically low 20.5-60.0 [facility] Comment on above: Performed By: #### M G, CMP #### [facility] [address] [place] [address] Dr. Doreen Betancourt MANUAL DIFF REQ NO Normal [facility] Comment on above: Performed By: #### M G, CMP #### [facility] [address] [place] [address] Dr. Doreen Betancourt MCH (RBC) [Entitic mass] 29.9 pg Normal 26.7-34.[address] [facility] Comment on above: Performed By: #### M G, CMP #### [facility] [address] [place] [address] Dr. Doreen Betancourt MCHC (RBC) [Mass/Vol] 32.3 g/dL Normal 29.9-35.2 [facility] Comment on above: Performed By: #### M G, CMP #### [facility] [address] [place] [address] Dr. Doreen Betancourt MCV (RBC) [Entitic vol] 92.7 fL Normal 81.0-99.0 [facility] Comment on above: Performed By: #### M G, CMP #### [facility] [address] [place] [address] Dr. Doreen Betancourt MONO # 0.9 103/ul Critically high 0.3-0.8 [facility] Comment on above: Performed By: #### M G, CMP #### [facility] [address] [place] [address] Dr. Doreen Betancourt Monocytes/100 WBC (Bld) 8.8 % Normal 1.7-12.[address] [facility] Comment on above: Performed By: #### M G, CMP #### [facility] [address] [place] [address] Dr. Doreen Betancourt NEUT # 8.3 103/ul Critically high 1.4-6.[address] [facility] Comment on above: Performed By: #### M G, CMP #### [facility] [address] [place] [address] Dr. Doreen Betancourt Neutrophils/100 WBC (Bld) 78.5 % Critically high 43.0-75.[address] [facility] Comment on above: Performed By: #### M G, CMP #### [facility] [address] [place] [address] Dr. Doreen Betancourt Platelet mean volume (Bld) [Entitic vol] 10.6 fL Normal 9.5-13.[address] [facility] Comment on above: Performed By: #### M G, CMP #### [facility] [address] [place] [address] Dr. Doreen Betancourt PLT 218 103/ul Normal 150-[address] [facility] Comment on above: Performed By: #### M G, CMP #### [facility] [address] [place] [address] Dr. Doreen Betancourt RBC 3.84 106/ul Critically low 4.20-5.40 [facility] Comment on above: Performed By: #### M G, CMP #### [facility] [address] [place] [address] Dr. Doreen Betancourt WBC 10.6 103/ul Normal 4.0-11.0 [facility] Comment on above: Performed By: #### M G, CMP #### [facility] [address] [place] [address] Dr. Doreen Betancourt PROF CHEM 8 (BAS METB)on Anion gap [Moles/Vol] 9.4 mmol/L Normal [facility] Comment on above: Performed By: #### M G, CMP #### [facility] [address] [address] [address] Doreen Betancourt Calcium [Mass/Vol] 8.4 mg/dL Critically low 8.5-10.1 [facility] Comment on above: Performed By: #### M G, CMP #### [facility] [address] [address] [address] Doreen Betancourt Chloride [Moles/Vol] 105 mmol/L Normal 98-[address] [facility] Comment on above: Performed By: #### M G, CMP #### [facility] [address] [place] [address] Dr. Doreen Betancourt CO2 [Moles/Vol] 25.1 mmol/L Normal 21.0-32.[address] [facility] Comment on above: Performed By: #### M G, CMP #### [facility] [address] [place] [address] Dr. Doreen Betancourt Creatinine [Mass/Vol] 0.50 mg/dL Critically low 0.55-1.[address] [facility] Comment on above: Performed By: #### M G, CMP #### [facility] [address] [place] [address] Dr. Doreen Betancourt EGFR-AF TURKISH >60 Normal >=[address] [facility] Comment on above: Performed By: #### M G, CMP #### [facility] [address] [place] [address] Dr. Doreen Betancourt EGFR-NON AF TURKISH >60 Normal >=[address] [facility] Comment on above: Performed By: #### M G, CMP #### [facility] [address] [place] [address] Dr. Doreen Betancourt Glucose [Mass/Vol] 114 mg/dL Critically high 74-106 [place] Comment on above: Performed By: #### M G, CMP #### [facility] [address] [place] [address] Dr. Doreen Betancourt Potassium [Moles/Vol] 3.5 mmol/L Normal 3.5-5.[address] [facility] Comment on above: Performed By: #### M G, CMP #### [facility] [address] [place] [address] Dr. Doreen Betancourt Sodium [Moles/Vol] 136 mmol/L Normal 136-[address] [facility] Comment on above: Performed By: #### M G, CMP #### [facility] [address] [place] [address] Dr. Doreen Betancourt Urea nitrogen [Mass/Vol] 6.0 mg/dL Critically low 7.0-18.[address] [facility] Comment on above: Performed By: #### M G, CMP #### [facility] [address] [place] [address] Dr. Doreen Betancourt Urea nitrogen/Creatinine [Mass ratio] 12.0 mg/mg Normal [facility] Comment on above: Performed By: #### M G, CMP #### [facility] [address] [place] [address] Dr. Doreen Betancourt CBC AUTO DIFFon 04-08-2022 BASO # 0.1 103/ul Normal 0.0-0.[address] [facility] Comment on above: Performed By: #### M G, CMP #### [facility] [address] [place] [address] Dr. Doreen Betancourt Basophils/100 WBC (Bld) 0.8 % Normal 0.2-2.[address] [facility] Comment on above: Performed By: #### M G, CMP #### [facility] [address] [place] [address] Dr. Doreen Betancourt EO # 0.1 103/ul Normal 0.0-0.[address] [facility] Comment on above: Performed By: #### M G, CMP #### [facility] [address] [place] [address] Dr. Doreen Betancourt Eosinophils/100 WBC (Bld) 1.8 % Normal 0.9-7.[address] [facility] Comment on above: Performed By: #### M G, CMP #### [facility] [address] [place] [address] Dr. Doreen Betancourt Erythrocyte distribution width (RBC) [Ratio] 13.0 % Normal 11.0-15.[address] [facility] Comment on above: Performed By: #### M G, CMP #### [facility] [address] [place] [address] Dr. Doreen Betancourt Hematocrit (Bld) [Volume fraction] 42.1 % Normal 36.0-48.[address] [facility] Comment on above: Performed By: #### M G, CMP #### [facility] [address] [place] [address] Dr. Doreen Betancourt Hemoglobin (Bld) [Mass/Vol] 13.4 g/dL Normal 12.0-16.[address] [facility] Comment on above: Performed By: #### M G, CMP #### [facility] [address] [place] [address] Dr. Doreen Betancourt IG # 0.02 10e3/ul Normal 0.00-0.[address] [facility] Comment on above: Performed By: #### M G, CMP #### [facility] [address] [place] [address] Dr. Doreen Betancourt IG % 0.3 % Normal 0.0-0.[address] [facility] Comment on above: Performed By: #### M G, CMP #### [facility] [address] [place] [address] Dr. Doreen Betancourt LYMPH # 2.1 103/ul Normal 1.2-3.8 [facility] Comment on above: Performed By: #### M G, CMP #### [facility] [address] [place] [address] Dr. Doreen Betancourt Lymphocytes/100 WBC (Bld) 31.6 % Normal 20.5-60.[address] [facility] Comment on above: Performed By: #### M G, CMP #### [facility] [address] [place] [address] Dr. Doreen Betancourt MANUAL DIFF REQ NO Normal [facility] Comment on above: Performed By: #### M G, CMP #### [facility] [address] [place] [address] Dr. Doreen Betancourt MCH (RBC) [Entitic mass] 30.2 pg Normal 26.7-34.[address] [facility] Comment on above: Performed By: #### M G, CMP #### [facility] [address] [place] [address] Dr. Doreen Betancourt MCHC (RBC) [Mass/Vol] 31.8 g/dL Normal 29.9-35.2 [facility] Comment on above: Performed By: #### M G, CMP #### [facility] [address] [place] [address] Dr. Doreen Betancourt MCV (RBC) [Entitic vol] 95.0 fL Normal 81.0-99.[address] [facility] Comment on above: Performed By: #### M G, CMP #### [facility] [address] [place] [address] Dr. Doreen Betancourt MONO # 0.4 103/ul Normal 0.3-0.[address] [facility] Comment on above: Performed By: #### M G, CMP #### [facility] [address] [place] [address] Dr. Doreen Betancourt Monocytes/100 WBC (Bld) 6.2 % Normal 1.7-12.0 [facility] Comment on above: Performed By: #### M G, CMP #### [facility] [address] [place] [address] Dr. Doreen Betancourt NEUT # 3.9 103/ul Normal 1.4-6.5 [facility] Comment on above: Performed By: #### M G, CMP #### [facility] [address] [place] [address] Dr. Doreen Betancourt Neutrophils/100 WBC (Bld) 59.3 % Normal 43.0-75.0 [facility] Comment on above: Performed By: #### M G, CMP #### [facility] [address] [place] [address] Dr. Doreen Betancourt Platelet mean volume (Bld) [Entitic vol] 10.2 fL Normal 9.5-13.[address] [facility] Comment on above: Performed By: #### M G, CMP #### [facility] [address] [place] [address] Dr. Doreen Betancourt PLT 276 103/ul Normal 150-450 [facility] Comment on above: Performed By: #### M G, CMP #### [facility] [address] [address] [address] Doreen Betancourt RBC 4.43 106/ul Normal 4.20-5.[address] [facility] Comment on above: Performed By: #### M G, CMP #### [facility] [address] [address] [address] Doreen Betancourt WBC 6.6 103/ul Normal 4.0-11.[address] [facility] Comment on above: Performed By: #### M G, CMP #### [facility] [address] [place] [address] Dr. Doreen Betancourt [facility]on SARS-CoV-2 (COVID-19) RNA MARIVEL+probe Ql (Unsp spec) Not detected Normal NOT DETECTED [facility] Comment on above: Result Comment: [...] for this test is supported by the [employer] of Health and Human Service's declaration that [...] Performed By: #### M G, CMP #### [facility] [address] [place] [address] Dr. Doreen Betancourt TYPE AND SCREENon 04-08-2022 TYPE AND SCREEN Negative Normal [facility] Comment on above: Performed By: #### M G, CMP #### [facility] [address] [place] [address] Dr. Doreen Betancourt CEAon 2022 CEA 4.9 ng/mL Critically high 0.0-4.[address] [facility] Comment on above: Result Comment: Nons mokers <3.9 Smokers <5.6 . [employer] Electrochemiluminescence Immunoassay (ECLIA) . Values obtained with different assay methods or kits cannot be used interchangeably. Results cannot be interpreted as absolute evidence of the presence or absence of malignant disease. Performed By: #### M G, CMP #### [facility] [address] [place] [address] Dr. Doreen Betancourt PROF 14(COMP METB)on 022 Albumin [Mass/Vol] 3.6 g/dL Normal 3.4-5.[address] [facility] Comment on above: Performed By: #### M G, CMP #### [facility] [address] [place] [address] Dr. Doreen Betancourt Albumin/Globulin [Mass ratio] 1.1 {ratio} Normal [facility] Comment on above: Performed By: #### M G, CMP #### [facility] [address] [place] [address] Dr. Doreen Betancourt ALP [Catalytic activity/Vol] 76 U/L Normal 46-[address] [facility] Comment on above: Performed By: #### M [place], CMP #### [facility] [address] [place] [address] Dr. Doreen Betancourt ALT [Catalytic activity/Vol] 18 U/L Normal 14-[address] [facility] Comment on above: Performed By: #### M G, CMP #### [facility] [address] [place] [address] Dr. Doreen Betancourt Anion gap [Moles/Vol] 12.7 mmol/L Normal [facility] Comment on above: Performed By: #### M G, CMP #### [facility] [address] [place] [address] Dr. Doreen Betancourt AST [Catalytic activity/Vol] 15 U/L Normal 15-[address] [facility] Comment on above: Performed By: #### M G, CMP #### [facility] [address] [place] [address] Dr. Doreen Betancourt Bilirubin [Mass/Vol] 0.3 mg/dL Normal 0.2-1.[address] [facility] Comment on above: Performed By: #### M G, CMP #### [facility] [address] [address] [address] Doreen Betancourt Calcium [Mass/Vol] 8.8 mg/dL Normal 8.5-10.1 [facility] Comment on above: Performed By: #### M G, CMP #### [facility] [address] [place] [address] Dr. Doreen Betancourt Chloride [Moles/Vol] 104 mmol/L Normal 98-107 [facility] Comment on above: Performed By: #### M G, CMP #### [facility] [address] [place] [address] Dr. Doreen Betancourt CO2 [Moles/Vol] 25.5 mmol/L Normal 21.0-32.0 [facility] Comment on above: Performed By: #### M G, CMP #### [facility] [address] [place] [address] Dr. Doreen Betancourt Creatinine [Mass/Vol] 0.61 mg/dL Normal 0.55-1.[address] [facility] Comment on above: Performed By: #### M G, CMP #### [facility] [address] [place] [address] Dr. Doreen Betancourt EGFR-AF TURKISH >60 Normal >=60 [facility] Comment on above: Performed By: #### M G, CMP #### [facility] [address] [place] [address] Dr. Doreen Betancourt EGFR-NON AF TURKISH >60 Normal >=60 [facility] Comment on above: Performed By: #### M G, CMP #### [facility] [address] [place] [address] Dr. Doreen Betancourt Globulin (S) [Mass/Vol] 3.3 g/dL Normal [facility] Comment on above: Performed By: #### M G, CMP #### [facility] [address] [address] [address] Doreen Betancourt Glucose [Mass/Vol] 93 mg/dL Normal 74-106 [facility] Comment on above: Performed By: #### M G, CMP #### [facility] [address] [place] [address] Dr. Doreen Betancourt Potassium [Moles/Vol] 4.2 mmol/L Normal 3.5-5.1 [facility] Comment on above: Performed By: #### M G, CMP #### [facility] [address] [place] [address] Dr. Doreen Betancourt Protein [Mass/Vol] 6.9 g/dL Normal 6.4-8.2 [facility] Comment on above: Performed By: #### M G, CMP #### [facility] [address] [place] [address] Dr. Doreen Betancourt Sodium [Moles/Vol] 138 mmol/L Normal 136-145 [facility] Comment on above: Performed By: #### M G, CMP #### [facility] [address] [place] [address] Dr. Doreen Betancourt Urea nitrogen [Mass/Vol] 17.0 mg/dL Normal 7.0-18.0 [facility] Comment on above: Performed By: #### M G, CMP #### [facility] [address] [place] [address] Dr. Doreen Betancourt Urea nitrogen/Creatinine [Mass ratio] 27.9 mg/mg Normal [facility] Comment on above: Performed By: #### M G, CMP #### [facility] [address] [place] [address] ABD/PELV W CONon [...] NEDA COULTER Date: 2022-03-27 17:13 Normal [facility] Covid-19 PCR ([facility])on SARS-CoV-2 (COVID-19) RNA MARIVEL+probe Ql (Unsp spec) Not detected Normal NOT DETECTED [facility] Comment on above: Result Comment: This test is not yet approved or cleared by the [place] FDA. When there are no FDA-approved or cleared tests available, and other criteria are met, FDA can make tests available under an emergency access mechanism called an Emergency Use Authorization (EUA). The EUA for this test is supported by the [employer] of Health and Human Service's (HHS's) declaration [...] with SARS-CoV-2. Performed By: #### M G, [facility] #### [facility] [address] [address] [address] ABD/PELV W CONon 01-10-[address] ABD/PELV W CON EXAMINATION: CT [...] NEDA COULTER Date: 2022-01-09 17:53 Normal [facility] Coding Summaryon 05-01-2021 Coding Summary [employer] 64 YnnrfqbqNNg5rVb+PGhlYWQ+PE 6NQLLsK77kbVAcvQ7BW0sMME3Q SKDUSLXOKQ8RWA8ayVK9UJskO8 VybiAv QkrriZHpFE65QZn2RPW6sNjdLE ekpQ6zmIAhG4o8HyPnMC70hS83 KVpzWMErHkR8BwNnparwwWXz Z7jaLiTxeQRfGoy+PHRhYmxlIH vkENZpBBftGGAjOxYvfTasJU1y Uu0mSUWvUYYxrPbqkZJfZeNx i9yjUCNyDLdoTS2uiPehX6KwfB N8MKDvm4y8Gn96tTZ+PHRkIHN0 bSpzSYvod651HnVop6guKVR4 fJJxTXyxTZK8U45le0U6PJKcOE HySJP9hFC5lC7igEirryvlF2Ps rIIpKfQ3LBQ2mFRjoW6hdCij fscsiW8wPzl+L45WXA5ITGTIKK 5JMgh2O7BrJozkxFC+TR61YTVf SM07kTOwjCCdh1mxgPw3VjMc ZWVjAVT8uSysMPehd3LxRBNeK2 6sfEFjl3H5EAPvnElqnKUbRvDr iLJ5sL8qYWsaxdbxz6czumyt Vycqt7onyn40aG95V97pLTrqLG UqLEL7OXYrGMWvyJinkt6jdR4y Ii8+GVnxp7uxk2izkRn6ClHm FMNsfrUkfIssSQG0k6QtDk74I3 RoqXndd6KvMta2gh78nTCfw9B8 oCQ6FSttGAEozN4oVWdrKhV4 XKSgWhFxwV65gPRgAMbiVt6eoI tqtZvjCE7iVTIhqxweAGSaaB6q OMGiwANslCstJI8dAPRamdkf q625EpBwHFS9RFUaqRBgJ4OgzM 3yOgWdDJXbYEYoS9QldKFpKMbi B263OCuzWhE9NCXdzuKfN5Ko CCHzaRvrGcZ6q1S5Na8Cf3Wkxc lxXHZ0LRkjINByPgN1RgGqAtL7 N5IrTou3LZIorXlvNA9nN0Yn PADxtkdxewuzpRS6RXNdWARwkG 36nLYhYFteYs7oa5E9k530IMTa IDLazT74Gz1vyUhlTGYznYSX aY4tpblai4mxnitxJrJvRFKaZP r1VPa7CNQzzUqrGcZhLST6UqD0 RKJ0wSEtdX7hbWethanerV7u Oyc+C83kkW3tQWW0RHT7ggojUJ RpzbNwZQ59RM46H9JgGlxatHAo bGU+CIMbblXtdDhgXJ5vLsXu e8koj6LwMQfgX0PvGACmJPofDv v8UADdYZW2yYM7kI8wPGLmAPos n8P6tIF1T0MnphDvxr1dm3cg JUXnFYwbD48jjDQix3X0HJIgmH P1CHPfuNdsQbFmkJ33Dqk+PGNv cAptf6NlHobza3ico2cuwGf4 WpHaSUCxjnDymNtdOVQ2z6BwOi 93C03ePKxoFEYzVYBmXSCfFWXk mCwwja5yxV5qFl0+PGNvbCB3 lDC5cY1bSGEiTwO6ONdqC342Mz FuyFUbPfeij5pdk8ihnQq6TnDl ETWionMhfXozWWJ3k2DuZj62 W35xEEtfGSDdOSEmAOVwFYLyuK tcer8jmZ6tSu6+AI9bq6bzwd90 kQ57hPE+DORzEZD3qIesVKhp LEKcpE6cVWdfDuV7GJBwIpSmjZ 27hYWjAXbyDc3hkBctaDbnUV6o BNSnzrvfn246WuUax8mkPQKh lYStYJhsOYM9E57da3O1INMeEL GbJST6aZF6pY9pcDfbtrruuBPs oTmpurZxrJpaGBklZGlxZ076 IHRvcDsnPlBhdGllbnQgTmFtZT y6R1RoZxp7ZPOxaFljJV6wdVTg TScwHq7lnUsnvCigSI4dZYFu jurzs631VqEvj3qpXQVhvGGjKW jjWPG1B57vz1D1EXJlRSAyJGC4 lYD3xM0fjOhlplvrbGDbcQux gfHssIcjEMnvTLbzJ116DBNmoK yvUxPqmoDkIPNbgEB9VU06OV50 lYGwq8U7vNK2X1AnOROyhxvq afiwdQQ4JMCpUVCmlN98Hk1ujI qhUu8mFAJsOLC3QDZteQJlV9Ab fC9yTqRnKZRlFQItQ5AfnDAw LHvnC669XMicZcA0TUXilvNoI6 XeGMYpeFbqVlX9t9Z5Lj3OF1D5 RM83MQ99bYSip9U1bZU8N9Gk PQKkxszimmnxvXO5UIQrXLJzgU 65Us7isKqfMn8iSPAiRDX9UVAw sOFrF3XvmR2zRdArLJCbAYVs I4OrwCIjHLfjH308RZykYbE4ZT UpkfSpC3HgXXVfxPteCbF1q8U9 Ik2KVJc4MG35PB00fIUyk2U7 kCN0Z3CyFXHxhhyjojpoqUE2AQ QjMUEncX03Qn1gfHbxGo0oHUFv TYD5LMLvkMLlG8LebT5cCiZq ASWgHCQjM5IjaTQuHXpvZ619MD rwWpO7GAEisaXlP9GrCIHudZas WlU9z2S6Ab0NDRSySH06VXV6 oPQ5NW57JE04M6ReXxzkcVMyrM U+PHRhYmxlIHdpZHRoPScxMDAl VtLjuVlaJV8vGa7gYKVcZHXm dFypxJEkAqLal4ugWYQsKGbuPY 7wsMeoS1EfnBR2NCCil4a2Ib27 Q89iJ1TrsGJ+NEDpnHE9qYG3 tS5jMaYsEvL8CFbuA519VqXpoQ QiEbdys6ynv6aohMs7FqV3TQOt fcZtzFsrOFB1t5UsHz50W03t IHdpZHRoPSIxNSUiIHZhbGlnbj 3bvE6cKq5+JQBhhAN5sQP3mL9c YcRwNtM5QUwgT792JuNrlXUc Nbnqn3jux8czfOe6JxDeYOZqpk FudPphEPG7e7LfSo34G1GszGwv v6RqAdw4dy97lPOnh4O0aLG4 D3ViUEQhmgtmaQTuzAzpDX0jLY CfyvxfYYHnoZ5dJWKjI3m9PgQo OeQ5ONrvW2OcbaD4NCLuwFAa PFqbTLU6S48fi8V0KQDpHYExPG L1rDP0tA0csGkyvmnpmIAvdBcp rpOifHgjWAmcZBwzD741VLTp qTnbJDXywU6fQAOfgBFkjSjrVR 4wNTBpbjsnPlBFVElUVEksIEpV RElUSDwvdGQ+PZCcWYE6vIzl SLrvZTPuwE1dRCKpF6a2VpMfOw W3BIccT9VjFTKtbcqtOq69bO7c MtMaYcQ3ZCsgJ4LdfgK2VOOm zHDlUVpeOUJ1L32et9C2BYJdFN WiVTP0sAT6nL1tgCblcvvwsJWc eLfjdqJsaOmmQPlwJDkuR440 VJKweIjmAtJ7VmF6PnX2AeW0E6 BaRrx8HNEixIquPM6iyVGtJBea Qj0xvDxgfDvxTJ3hRGWseaqe CBJsjD0wFCCuuRYhpGxyTU2lEY Eybtxtu455IaHtIPW2ZTIiqESk I5LzgL6uMuGeRSLcEHTeG4Zu zQTuJRjvA568VResPoV8SREpyk GiG7TcMBLzhOzyNeL6e8K4Jb52 NSBZZWFyczwvdGQ+PHRkIHN0 jKbjICqjBJNziN1rBGPzI2s3Gp EyAbM7JVjlH8KoJYOsqtxlAy87 zB7kKfQfZbJ0ONurF0TrjvM2 SDTujWCsYOjgZGA1M85en5O7XH UqZANmFRA9sPU5pT5qnEkeipmt bGVmdDsgdmVydGljYWwtYWxp U654RSSbzCmcZtUXWRRLRIyyrH Q+YFXaACB6tHlvOWzsNNLsqU8x EVHlZ0o6EfYbMsD2DKwpV8Lu LNNogvrcOf41dP1rLtVmEiD0XD dtK0EffrN5VPZxvBWyXBmsWLX7 C27pu5J6CVPhGIPtMIO5fYM2 zB2aaJkenavuaAExhJadylUnoV zgSUezWGvlD274HYQgnMurMe8L QZ07KK93P7MbIwmmvLZctNA+ PHRhYmxlIHdpZHRoPScxMDAlJy OstCgrOZ0rGy4aWGWaNVUlxRet wRHoXuTxh3giTIPqNDbrSH7g uAnpH9PwdHD2JASan7v6Aq96U2 8eX6FdcEA+MXIsaFZ0jYP0gP8o ZdJlStC9UCwwZ844DiKlvEHo Gvvlm6exw1logXg5RoDvVQCulm PrsCsuHPB8q5SoCq79V30cPTlx FCVwXQWcXNBjEMOuoJwrvo3i uQ2yWy9+LXFtiDT3cGQ8mD6uJo ElWtZ4PTsdH852UgKwuEEdVxec D46gW1OjrGH+MQMaNsz6WLAk xAjtIP1afKDkJBtuSn2bOWM6Ye ZoWgPpCBonF7AhJYGsnlnljawy yUT4LQFhSQTrkV67Lj9rbAcc Fc5mAOMoWDJ8YUQjpQYpD6LgiA 9oEzNsTRZcGLNhM8WttHDxHCoq R114TAdrPvM5XJWdwdTbE9Hi SQRqpEcjBlF2f1H8Ps1IzPiamQ LdIQ5hSiZeSEg6N1UqZdp2VGTp iNrtAR9nuLXvIHmaFv1mjHcn kJglNL6qMXOnyyqke714WgZjn1 slNVDtxZRjOCbnWOL3H92kn3F7 YHAwIYMvSIN4pCZ9fE7pxXai bjogbGVmdDsgdmVydGljYWwtYW stO314NZDqpNyiYePWBod6K9Hf Yfu4PIBuvFwhZQ3jlYIxKGxr Fq1glEuvjGceDS3mHQGqddxzp9 88XvDqo0riYYGlaXVvMMqfKNF6 Z03vm7W5OQYwVKIyEDZ7xCV9 gL5jtLlrzktqiDVzxXurzsSddB chHXqpFYjuM403OEQbfOguBm6N Pwy4G9DlMly7OGNziVxwBD3m mHIhKHodGz3ocAqhvEnsRL1bXL Tlhwlcc665VdFkg8spGXSzoLPi XLfvAGV1I17pz3C5QEEjHAZf YVD5kVS5gK7ygFbapewtkYUdeF pfkbVtgUqsAUpgVCfnL687JGZm cDsnPlBheWVyOjwvdGQ+PC90 ca34V0ObCxqmIll1NEXmBFB5zA Z2pR8nCSFxEBkqy6L1mTY5A6Xl dgFqzb6et9cnTICxVJoaU58g bGF (more content not included)... [facility] ED Clinical Summaryon 2020 ED Clinical Summary [facility] ? Urgent Care [address] [place] [address] [id number] Clinical Summary PERSON INFORMATION Name: MARYSOL GARDNER Age: 56 Years Sex: FEMALE : 1965 MRN: Acct#: Visit Reason: Wrist laceration; LEFT WRIST LAC Arrival: 04/21/2021 17:52:39 Discharge: 04/21/2021 18:47:00 LOS: 000 00:55 Check In: 04/21/2021 17:52:39 Checkout: 04/21/2021 18:47:00 Address: [address] [place] [address] PCP: Sandro Chin MD PROVIDER INFORMATION Provider [...] PATIENT EDUCATION INFORMATION Instructions: Laceration Care, Adult, [id number] Follow-Up: With: Address: When: Sandro Chin [address] [place] [address] [place] [address] Business (1) Within 3 to 5 days Comments: Please follow-up with Dr. Chin, call the office schedule an appointment to be seen in 3 to 5 days for wound check, please take your Augmentin as prescribed, keep the wound clean, apply bacitracin and keep it covered, have sutures removed in 10 to 12 days from today, take lpjj-zhq-yvgemtq pain medication as needed, and return back to the urgent care center for any worsening symptoms, concerns, or complications. DIAGNOSIS: 1:Laceration of left wrist Patient Understands: Yes - Patient/family/caregiver verbalizes understanding of instructions given Comment: Normal [facility] ED Patient Summaryon 021 ED Patient Summary [facility] ? Urgent Care [address] [place] [address] [id number] PATIENT DISCHARGE INSTRUCTIONS Patient Information Name: MARYSOL GARDNER Age: 56 Years Date of : 1965 [facility]: [id number] Reason For Visit: Wrist laceration; LEFT WRIST LAC Arrival Time: 04/21/2021 17:52:39 Primary Care Physician: Sandro Chin MD Attending Physician: Leo Art PA-C Comment: Patient Education With: Address: When: Sandro Chin [address] [place] [address], [facility] [address] Business (1) Within 3 to 5 days Comments: Please follow-up with Dr. Chin, call the office schedule an appointment to be seen in 3 to 5 days for wound check, please take your Augmentin as prescribed, keep the wound clean, apply bacitracin and keep it covered, have sutures removed in 10 to 12 days from today, take mxjc-sum-[id number] pain medication as needed, and return back [...] needed: ? Soap. ? Water. ? Hand bleach range operator. ? Bandage (dressing). ? Antibiotic ointment. ? Clean towel. How to take care of your cut Wash your hands with soap and water before touching your wound or changing your bandage. If soap and water are not available, use hand bleach range operator. If your doctor used stitches or yuridia: [...] off the skin. General instructions ? Take zxan-gef-nqrokqm and prescription medicines only as told by [...] by your doctor (more content not included)... [facility] Progress Note - Nurseon 04-06 Progress Note - Nurse sutured wound irma kristopher, bacitracin applied and a bandage, pt tolerated well [Electronically Signed on: 04/21/2021 18:57 EDT] Lauren Boyer [Verified on: 04/21/2021 18:57 EDT] Lauren Boyer [facility] Ur[facility] [place] 021 Urgent Care Record [facility] ? Urgent Care [address] [id number] PATIENT DISCHARGE INSTRUCTIONS Patient Information Name: MARYSOL GARDNER Age: 56 Years Date of : 1965 Reason For Visit: Wrist laceration; LEFT WRIST LAC Arrival Time: 04/21/2021 17:52:39 Primary Care Physician: Sandro Chin MD Attending Physician: Leo Art PA-C Comment: Visit Diagnosis: Diagnoses This Visit Laceration of left wrist (S61.512A) Wrist laceration ([id number]) If you received any narcotics, sedation, or [...] legal documents With: Address: When: Sandro Chin [address] [place] [address], [facility] [address] Business (1) Within 3 to 5 days Comments: Please follow-up with Dr. Chin, call the office schedule an appointment to be seen in 3 to 5 days for wound check, please take your Augmentin as prescribed, keep the wound clean, apply bacitracin and keep it covered, have sutures removed in 10 to 12 days from today, take [id number] pain medication as needed, and return back to the urgent care center for any worsening symptoms, concerns, or complications. Medication Information: The exam and treatment you received today in the [facility] were for an urgent problem and are not intended as complete care. It is important for you to follow up with a doctor, nurse practitioner, or physician?s refinery operator assistant for ongoing care. If your symptoms [...] so we can reach you if necessary. [facility] has provided you with a complete list of medications post discharge. Please inform your lumber stacker/provider of your visit and for further instruction on these medications. Any specific questions regarding your chronic medications and dosages should be discussed with your primary care physician(s) and/or pharmacist. New Medications [id number], [address], [place] [id number], [phone] amoxicillin-clavulanate (Augmentin 875 mg-125 mg oral tablet) [...] needed: ? Soap. ? Water. ? Hand bleach range operator. ? Bandage (dressing). ? Antibiotic ointment. ? Clean towel. How to take care of your cut Wash your hands with soap and water before touching your wound or changing your bandage. If soap and water ar (more content not included)... Normal [facility] Vital Signs Date Time Vital Sign Value Performing Clinician Facility 04-04-2025 13:13-0400 Body temperature 97.7 [degF] Sandro Chin MD Work Phone: [facility] 04-04-2025 13:13-0400 Body weight 72.57 kg Sandro Chin MD Work Phone: [facility] 04-04-2025 13:13-0400 Diastolic blood pressure 85 mm[Hg] Sandro Chin MD Work Phone: [facility] 04-04-2025 13:13-0400 Heart rate 69 /min Sandro Chin MD Work Phone: [facility] 04-04-2025 13:13-0400 Respiratory rate 16 /min Sandro Chin MD Work Phone: [facility] 04-04-2025 13:13-0400 SaO2% (BldA) [Mass fraction] 98 % Sandro Chin MD Work Phone: [facility] 04-04-2025 13:13-0400 Systolic blood pressure 131 mm[Hg] Sandro Chin MD Work Phone: [facility] 03-21-2025 13:10-0400 Body weight 73.93 kg Sandro Chin MD Work Phone: [facility] 03-21-2025 13:10-0400 Diastolic blood pressure 95 mm[Hg] Sandro Chin MD Work Phone: [facility] 03-21-2025 13:10-0400 Heart rate 69 /min Sandro Chin MD Work Phone: [facility] 03-21-2025 13:10-0400 Respiratory rate 20 /min Sandro Chin MD Work Phone: [facility] 03-21-2025 13:10-0400 SaO2% (BldA) [Mass fraction] 99 % Sandro Chin MD Work Phone: [facility] 03-21-2025 13:10-0400 Systolic blood pressure 156 mm[Hg] Sandro Chin MD Work Phone: [facility] 02-01-2025 09:55-0400 Diastolic blood pressure 58 mm[Hg] Sandro Chin MD Work Phone: [facility] 02-01-2025 09:55-0400 Heart rate 60 /min Sandro Chin MD Work Phone: [facility] 02-01-2025 09:55-0400 Respiratory rate 16 /min Sandro Chin MD Work Phone: [facility] 02-01-2025 09:55-0400 SaO2% (BldA) [Mass fraction] 98 % Sandro Chin MD Work Phone: [facility] 02-01-2025 09:55-0400 Systolic blood pressure 97 mm[Hg] Sandro Chin MD Work Phone: [facility] 02-01-2025 08:44-0400 Body height 162.56 cm Sandro Chin MD Work Phone: [facility] 02-01-2025 08:44-0400 Body weight 73.02 kg Sandro Chin MD Work Phone: [facility] 12-21-2024 08:32-0400 Body mass index (BMI) [Ratio] 27.29 kg/m2 Constantino Martinez MD Work Phone: [facility] 12-21-2024 08:32-0400 Body weight 72.12 kg Constantino Martinez MD Work Phone: [facility] 12-21-2024 08:32-0400 Diastolic blood pressure 101 mm[Hg] Constantino Martinez MD Work Phone: [facility] 12-21-2024 08:32-0400 Heart rate 68 /min Constantino Martinez MD Work Phone: [facility] 12-21-2024 08:32-0400 Systolic blood pressure 148 mm[Hg] Constantino Martinez MD Work Phone: [facility] 12-20-2024 10:41-0400 Body height 162.56 cm Sandro Chin MD Work Phone: [facility] 12-20-2024 10:41-0400 Body mass index (BMI) [Ratio] 27.6 kg/m2 Sandro Chin MD Work Phone: [facility] 12-20-2024 10:41-0400 Body weight 73.02 kg Sandro Chin MD Work Phone: [facility] 12-20-2024 10:41-0400 Diastolic blood pressure 85 mm[Hg] Sandro Chin MD Work Phone: [facility] 12-20-2024 10:41-0400 Heart rate 64 /min Sandro Chin MD Work Phone: [facility] 12-20-2024 10:41-0400 Systolic blood pressure 121 mm[Hg] Sandro Chin MD Work Phone: [facility] 12-14-2024 09:33-0400 Body height 162.56 cm [facility] 12-14-2024 09:33-0400 Body mass index (BMI) [Ratio] 27.6 kg/m2 [facility] 12-14-2024 09:33-0400 Body weight 73.08 kg [facility] 12-14-2024 09:33-0400 Diastolic blood pressure 87 mm[Hg] [facility] 12-14-2024 09:33-0400 Heart rate 58 /min [facility] 12-14-2024 09:33-0400 Systolic blood pressure 142 mm[Hg] [facility] 09-06-2024 12:58-0500 Body height 162.56 cm Clint Jean Baptiste DO Work Phone: [facility] 09-06-2024 12:58-0500 Body mass index (BMI) [Ratio] 28.8 kg/m2 Clint Jean Baptiste DO Work Phone: [facility] 09-06-2024 12:58-0500 Body temperature 97.5 [degF] Clint Alejandros DO Work Phone: [facility] 09-06-2024 12:58-0500 Body weight 76.2 kg Clint Monicoillis DO Work Phone: [facility] 09-06-2024 12:58-0500 Diastolic blood pressure 89 mm[Hg] Clint Marcillis DO Work Phone: [facility] 09-06-2024 12:58-0500 Heart rate 58 /min Clint Marcillis DO Work Phone: [facility] 09-06-2024 12:58-0500 Respiratory rate 16 /min Clint Marcillis DO Work Phone: [facility] 09-06-2024 12:58-0500 SaO2% (BldA) [Mass fraction] 99 % Clint Alejandros DO Work Phone: [facility] 09-06-2024 12:58-0500 Systolic blood pressure 139 mm[Hg] Clint Marcillis DO Work Phone: [facility] 07-01-2024 10:59-0500 Body height 162.56 cm Clint Alejandros DO Work Phone: [facility] 07-01-2024 10:59-0500 Body mass index (BMI) [Ratio] 28.8 kg/m2 Clint Marcillis DO Work Phone: [facility] 07-01-2024 10:59-0500 Body weight 76.2 kg Clint Marcillis DO Work Phone: [facility] 07-01-2024 10:59-0500 Diastolic blood pressure 84 mm[Hg] Clint Alejandros DO Work Phone: [facility] 07-01-2024 10:59-0500 Heart rate 64 /min Clint Alejandros DO Work Phone: [facility] 07-01-2024 10:59-0500 Systolic blood pressure 138 mm[Hg] Clint Jean Baptiste DO Work Phone: [facility] 03-25-2024 11:29-0400 Body height 162.6 cm Masha Richardson CUSTOMER SUPPORT REPRESENTATIVE-ASPNET DEVELOPER Work Phone: [facility] 03-25-2024 11:29-0400 Body mass index (BMI) [Ratio] 27.5 kg/m2 Masha Richardson CUSTOMER SUPPORT REPRESENTATIVE-ASPNET DEVELOPER Work Phone: [facility] 03-25-2024 11:29-0400 Body weight 72.67 kg Masha Richardson CUSTOMER SUPPORT REPRESENTATIVE-ASPNET DEVELOPER Work Phone: [facility] 03-25-2024 11:29-0400 Diastolic blood pressure 60 mm[Hg] Msaha Richardson CUSTOMER SUPPORT REPRESENTATIVE-ASPNET DEVELOPER Work Phone: [facility] 03-25-2024 11:29-0400 Heart rate 54 /min Masha Richardson CUSTOMER SUPPORT REPRESENTATIVE-ASPNET DEVELOPER Work Phone: [facility] 03-25-2024 11:29-0400 Systolic blood pressure 102 mm[Hg] Masha Richardson CUSTOMER SUPPORT REPRESENTATIVE-ASPNET DEVELOPER Work Phone: [facility] 03-15-2024 13:50-0400 Body height 162.6 cm Clint Jean Baptiste DO Work Phone: [facility] 03-15-2024 13:50-0400 Body mass index (BMI) [Ratio] 27.46 kg/m2 Clint Jean Baptiste DO Work Phone: [facility] 03-15-2024 13:50-0400 Body weight 72.58 kg Clint Jean Baptiste DO Work Phone: [facility] 03-03-2024 10:26-0400 Body height 162.6 cm Clint Jean Baptiste DO Work Phone: [facility] 03-03-2024 10:26-0400 Body mass index (BMI) [Ratio] 27.46 kg/m2 Clint Jean Baptiste DO Work Phone: [facility] 03-03-2024 10:26-0400 Body weight 72.58 kg Clint Jean Baptiste DO Work Phone: [facility] 01-19-2024 11:22-0400 Body height 162.56 cm DO Clint Flavias Work Phone: [facility] 01-19-2024 11:22-0400 Body mass index (BMI) [Ratio] 28.8 kg/m2 DO Clint Flavias Work Phone: [facility] 01-19-2024 11:22-0400 Body temperature 98 [degF] DO Clint Alejandros Work Phone: [facility] 01-19-2024 11:22-0400 Body weight 76.2 kg DO Clint Alejandros Work Phone: [facility] 01-19-2024 11:22-0400 Diastolic blood pressure 91 mm[Hg] DO Clint Alejandros Work Phone: [facility] 01-19-2024 11:22-0400 Heart rate 52 /min DO Clint Alejandros Work Phone: [facility] 01-19-2024 11:22-0400 Respiratory rate 18 /min DO Clint Alejandros Work Phone: [facility] 01-19-2024 11:22-0400 SaO2% (BldA) [Mass fraction] 99 % DO Clint Alejandros Work Phone: [facility] 01-19-2024 11:22-0400 Systolic blood pressure 138 mm[Hg] DO Clint Flavias Work Phone: [facility] 11-17-2023 09:37-0400 Body height 162.56 cm DO Clint Flavias Work Phone: [facility] 11-17-2023 09:37-0400 Body mass index (BMI) [Ratio] 28.8 kg/m2 DO Clint Flavias Work Phone: [phone] [place] [address] 11-17-2023 09:37-0400 Body weight 76.2 kg DO Clint Monicoillis Work Phone: [facility] 11-17-2023 09:37-0400 Diastolic blood pressure 88 mm[Hg] DO Clint Grillis Work Phone: [facility] 11-17-2023 09:37-0400 Heart rate 60 /min DO Clint Monicoillis Work Phone: [facility] 11-17-2023 09:37-0400 Systolic blood pressure 136 mm[Hg] DO Clint Monicoillis Work Phone: [facility] 09-26-2023 10:34-0400 Body height 162.56 cm DO Clint Monicoillis Work Phone: [facility] 09-26-2023 10:34-0400 Body mass index (BMI) [Ratio] 28.8 kg/m2 DO Clint Monicoillis Work Phone: [facility] 09-26-2023 10:34-0400 Body weight 76.2 kg DO Clint Monicoillis Work Phone: [facility] 09-26-2023 10:34-0400 Diastolic blood pressure 82 mm[Hg] DO Clint Monicoillis Work Phone: [facility] 09-26-2023 10:34-0400 Heart rate 63 /min DO Clint Monicoillis Work Phone: [facility] 09-26-2023 10:34-0400 Respiratory rate 18 /min DO Clint Monicoillis Work Phone: [facility] 09-26-2023 10:34-0400 SaO2% (BldA) [Mass fraction] 97 % DO Clint Monicoillis Work Phone: [facility] 09-26-2023 10:34-0400 Systolic blood pressure 131 mm[Hg] DO Clint Monicoillis Work Phone: [facility] 06-25-2023 11:13-0500 Diastolic blood pressure 79 mm[Hg] DO Clint Jean Baptiste Work Phone: [facility] 06-25-2023 11:13-0500 Heart rate 78 /min DO Clint Alejandros Work Phone: [facility] 06-25-2023 11:13-0500 Respiratory rate 20 /min DO Cilnt Alejandros Work Phone: [facility] 06-25-2023 11:13-0500 SaO2% (BldA) [Mass fraction] 98 % DO Clint Jean Baptiste Work Phone: [facility] 06-25-2023 11:13-0500 Systolic blood pressure 142 mm[Hg] DO Clint Jean Baptiste Work Phone: [facility] 05-19-2023 11:15-0500 Body height 162.56 cm Sandro Chin Other [employer] Other 05-19-2023 11:15-0500 Body mass index (BMI) [Ratio] 28.56 kg/m2 Sandro Chin Other [employer] Other 05-19-2023 11:15-0500 Body weight 75.48 kg Sandro Chin Other [employer] Other 05-19-2023 11:15-0500 Diastolic blood pressure 75 mm[Hg] Sandro Chin Other [employer] Other 05-19-2023 11:15-0500 Systolic blood pressure 109 mm[Hg] Sandro Chin Other [employer] Other 03-24-2023 10:41-0400 Body temperature 97.4 [degF] DO Clint Jean Baptiste Work Phone: [facility] 09-02-2022 08:36-0500 Body temperature 98 [degF] DO Isaías Jordan II Work Phone: [facility] 09-02-2022 08:36-0500 Body weight 76.6 kg DO Isaías Adamowicz II Work Phone: [facility] 09-02-2022 08:36-0500 Diastolic blood pressure 90 mm[Hg] DO Isaías Adamowicz II Work Phone: [facility] 09-02-2022 08:36-0500 Heart rate 65 /min DO Isaías Adamowicz II Work Phone: [facility] 09-02-2022 08:36-0500 Respiratory rate 20 /min DO Isaías Adamowicz II Work Phone: [facility] 09-02-2022 08:36-0500 SaO2% (BldA) [Mass fraction] 99 % DO Isaías Adamowicz II Work Phone: [facility] 09-02-2022 08:36-0500 Systolic blood pressure 147 mm[Hg] DO Isaías Adamowicz II Work Phone: [facility] 08-19-2022 08:43-0500 Body temperature 98.1 [degF] DO Isaías Adamowicz II Work Phone: [facility] 08-19-2022 08:43-0500 Body weight 74.9 kg DO Isaías Adamowicz II Work Phone: [facility] 08-19-2022 08:43-0500 Diastolic blood pressure 90 mm[Hg] DO Isaías Adamowicz II Work Phone: [facility] 08-19-2022 08:43-0500 Heart rate 60 /min DO Isaías Adamowicz II Work Phone: [facility] 08-19-2022 08:43-0500 Respiratory rate 20 /min DO Isaías Adamowicz II Work Phone: [facility] 08-19-2022 08:43-0500 SaO2% (BldA) [Mass fraction] 100 % DO Isaías Adamowicz II Work Phone: [facility] 08-19-2022 08:43-0500 Systolic blood pressure 143 mm[Hg] DO Isaías Adamowicz II Work Phone: [facility] 07-22-2022 09:43-0500 Body temperature 97.8 [degF] DO Isaías Adamowicz II Work Phone: [facility] 07-22-2022 09:43-0500 Body weight 75.7 kg DO Isaías Adamowicz II Work Phone: [facility] 07-22-2022 09:43-0500 Diastolic blood pressure 92 mm[Hg] DO Isaías Adamowicz II Work Phone: [facility] 07-22-2022 09:43-0500 Heart rate 67 /min DO Isaías Adamowicz II Work Phone: [facility] 07-22-2022 09:43-0500 Respiratory rate 16 /min DO Isaías Adamowicz II Work Phone: [facility] 07-22-2022 09:43-0500 SaO2% (BldA) [Mass fraction] 98 % DO Isaías Adamowicz II Work Phone: [facility] 07-22-2022 09:43-0500 Systolic blood pressure 149 mm[Hg] DO Isaías Adamowicz II Work Phone: [facility] 06-26-2022 12:23-0500 Body temperature 97.9 [degF] DO Clint Jean Baptiste Work Phone: [facility] 06-26-2022 12:23-0500 Diastolic blood pressure 79 mm[Hg] DO Clint Jean Baptiste Work Phone: [facility] 06-26-2022 12:23-0500 Heart rate 60 /min DO Clint Grillis Work Phone: [facility] 06-26-2022 12:23-0500 Respiratory rate 18 /min DO Clint Monicoillis Work Phone: [facility] 06-26-2022 12:23-0500 SaO2% (BldA) [Mass fraction] 97 % DO Clint Monicoillis Work Phone: [facility] 06-26-2022 12:23-0500 Systolic blood pressure 132 mm[Hg] DO Clint Grillis Work Phone: [facility] 06-24-2022 10:02-0500 Body weight 75 kg DO Clint Monicoillis Work Phone: [facility] 06-24-2022 09:08-0500 Body temperature 98 [degF] DO Clint Monicoillis Work Phone: [facility] 06-24-2022 09:08-0500 Body weight 75 kg DO Clint Monicoillis Work Phone: [facility] 06-24-2022 09:08-0500 Diastolic blood pressure 93 mm[Hg] DO Clint Monicoillis Work Phone: [facility] 06-24-2022 09:08-0500 Heart rate 61 /min DO Clint Monicoillis Work Phone: [facility] 06-24-2022 09:08-0500 Respiratory rate 16 /min DO Clint Monicoillis Work Phone: [facility] 06-24-2022 09:08-0500 SaO2% (BldA) [Mass fraction] 98 % DO Clint Grillis Work Phone: [facility] 06-24-2022 09:08-0500 Systolic blood pressure 137 mm[Hg] DO Clint Grillis Work Phone: [facility] 06-03-2022 08:08-0500 Body weight 74.1 kg DO Clint Monicoillis Work Phone: [facility] 06-03-2022 08:08-0500 Diastolic blood pressure 90 mm[Hg] DO Clint Jean Baptiste Work Phone: [facility] 06-03-2022 08:08-0500 Heart rate 56 /min DO Clint Jean Baptiste Work Phone: [facility] 06-03-2022 08:08-0500 Respiratory rate 20 /min DO Clint Jean Baptiste Work Phone: [facility] 06-03-2022 08:08-0500 SaO2% (BldA) [Mass fraction] 98 % DO Clint Jean Baptiste Work Phone: [facility] 06-03-2022 08:08-0500 Systolic blood pressure 137 mm[Hg] DO Clint Jean Baptiste Work Phone: [facility] 05-03-2022 14:40-0400 Body height 162.56 cm DO Clint Jean Baptiste Work Phone: [facility] Encounters Encounter Date Encounter Type Care Provider Facility Start: 04-13-2025 End: 04-13-2025 ambulatory Clint Cleo ALETHAL Facility:[facility] Start: 04-13-2025 End: 04-13-2025 Patient encounter procedure Clint Cleo [facility] [place] Start: 04-11-2025 End: 04-13-2025 ambulatory [facility] Start: 04-11-2025 ambulatory Clint NILL Facility:[facility] Start: 04-11-2025 End: 04-13-2025 ambulatory [facility]TONIO [facility] Start: 04-05-2025 ambulatory Clint NILL Facility:[facility] Start: 04-04-2025 End: 04-04-2025 Patient encounter procedure Isaías Jordan II [facility] Work Phone: Start: 04-04-2025 End: 04-04-2025 ambulatory Sandro Chin MD Work Phone: [facility] Work Phone: Start: 03-30-2025 End: 03-30-2025 External Result Encounter Carlyn Turner LUNCHROOM SUPERVISOR Work Phone: [facility] External Department Unsolicited Start: 03-30-2025 End: 03-30-2025 External Result Encounter Carlyn Turner LUNCHROOM SUPERVISOR Work Phone: [facility] External Department Unsolicited Start: 03-21-2025 Registered Recurring Carlyn Turner [facility] Work Phone: Start: 03-21-2025 End: 03-21-2025 ambulatory Sandro Chin MD Work Phone: [facility] Work Phone: Start: 03-21-2025 End: 03-21-2025 Patient encounter procedure Isaías Jordan II [facility] Work Phone: Start: 03-17-2025 Non-patient / Non-visit Dionicio Jordan II DO -[facility] Work Phone: Start: 02-01-2025 End: 02-01-2025 ambulatory Sandro Chin Facility:[facility] Start: 02-01-2025 Non-patient / Non-visit Roz Borrego [facility] Work Phone: Start: 12-25-2024 Non-patient / Non-visit Sandro mendoza MD -[facility] Work Phone: Start: 12-21-2024 End: [...] Start: 12-20-2024 End: 12-20-2024 ambulatory Sandro Chin Facility:[facility] Start: 12-20-2024 End: 12-20-2024 Departed Referred Sandro Chin MD -[facility] [place] Work Phone: Start: 12-20-2024 End: 12-20-2024 Patient encounter procedure Sandro Chin MD -[facility] Work Phone: Start: 12-20-2024 End: 12-20-2024 Patient encounter status Sandro Chin MD [facility] Start: 12-14-2024 End: 12-14-2024 ambulatory [facility] Work Phone: Start: 12-14-2024 End: 12-14-2024 Patient encounter procedure [facility] Work Phone: Start: 09-06-2024 Registered Recurring Clint eaton DO [facility] Work Phone: Start: 09-06-2024 End: 09-06-2024 ambulatory Clint Jean Baptiste DO Work Phone: [facility] Work Phone: Start: 09-06-2024 End: 09-06-2024 Patient encounter procedure Clint Jean Baptiste DO Work Phone: [facility] Ambulatory Work Phone: Start: 08-24-2024 Non-patient / Non-visit Leroy Jean Baptiste DO Work Phone: [facility] Physician [facility] Work Phone: Start: 07-01-2024 End: 07-01-2024 Patient encounter procedure Clint Jean Baptiste DO Work Phone: [facility] Physician [facility] Work Phone: Start: 03-25-2024 End: 03-25-2024 ambulatory [facility] Start: 03-25-2024 End: 03-25-2024 Postop follow up visit related to original px Masha Richardson CUSTOMER SUPPORT REPRESENTATIVE-ASPNET DEVELOPER Work Phone: [facility] General Surgery Comment on above: History of removal o f Port-a-Cath (Primary Dx); History of colon cancer Start: 03-15-2024 End: 03-15-2024 ambulatory BROOKLYN Klever DUGLAS [facility] Start: 03-15-2024 End: 03-15-2024 Patient encounter procedure Clint Jean Baptiste DO Work Phone: [facility] Comment on above: History of colon can cer (Primary Dx) Start: 03-03-2024 End: 03-03-2024 ambulatory CLINT Ernst DUGLAS [facility] Start: 03-03-2024 End: 03-03-2024 Office outpatient visit 15 minutes Clint Jean Baptiste DO Work Phone: [facility] Comment on above: History of colon can cer (Primary Dx) Start: 01-19-2024 End: 01-19-2024 ambulatory DO Clint Jean Baptiste Work Phone: [facility] Work Phone: Start: 01-19-2024 End: 01-19-2024 Patient encounter procedure DO Clint Jean Baptiste Work Phone: [facility] Ambulatory Work Phone: Start: 01-19-2024 Registered Recurring DO Leroy Jean Baptiste Work Phone: [facility] Work Phone: Start: 01-15-2024 Non-patient / Non-visit DO Sherwin Jean Baptiste Work Phone: [facility] Physician [facility] Work Phone: Start: 11-26-2023 Non-patient / Non-visit DO Sherwin Jean Baptiste Work Phone: [facility] Work Phone: Start: 11-17-2023 Patient encounter status DO Araseli Jean Baptiste Work Phone: [facility] Start: 11-17-2023 End: 11-17-2023 ambulatory DO Clint Jean Baptiste Work Phone: [facility] Work Phone: Start: 11-17-2023 End: 11-17-2023 Patient encounter procedure DO Clint Jean Baptiste Work Phone: [facility] Work Phone: Start: 09-26-2023 Registered Recurring DO Leroy Jean Baptiste [facility] Work Phone: Start: 09-26-2023 End: 09-26-2023 ambulatory DO Clint Jean Baptiste Work Phone: [facility] Work Phone: Start: 09-26-2023 End: 09-26-2023 Patient encounter procedure DO Clint Jean Baptiste Work Phone: [facility] Ambulatory Work Phone: Start: 09-18-2023 Non-patient / Non-visit DO Sherwin Jean Baptiste Work Phone: [facility] Work Phone: Start: 05-19-2023 End: 05-19-2023 ambulatory Sandro Chin Other [facility] [employer] Other Start: 05-19-2023 Office outpatient vi sit 15 minutes Sandro Chin [facility] Start: 11-16-2022 End: 11-17-2022 ambulatory ISAÍAS JORDAN Facility:[facility] Start: 11-02-2022 End: 11-03-2022 ambulatory ISAÍAS JORDAN Facility:[facility] Start: 10-19-2022 End: 10-20-[address] SANDRO CHIN Facility:[facility] Start: 09-14-2022 End: 09-15-2022 ambulatory ISAÍAS JORDAN Facility:[facility] Start: 09-02-2022 End: 09-02-2022 ambulatory NON STAFF [facility] Work Phone: Start: 09-02-2022 End: 09-02-2022 Registered Recurring DO Isaías Jordan II Work Phone: [facility] Work Phone: Start: 09-01-2022 End: 09-01-[address] SANDRO CHIN Facility:[facility] Start: 08-31-2022 End: 09-01-2022 ambulatory ISAÍAS J RADHA Facility:H1 Start: 08-19-2022 End: 08-19-2022 ambulatory NON STAFF [facility] Work Phone: Start: 08-19-2022 End: 08-19-2022 Registered Recurring DO Isaíasvanda Muñozmiri II Work Phone: [facility] Work Phone: Start: 08-16-2022 End: 08-17-2022 ambulatory ISAÍAS Seals RADHA Facility:H1 Start: 08-03-2022 End: 08-04-2022 ambulatory ISAÍAS Seals CHIQUISISAIAS Facility:H1 Start: 07-22-2022 End: 07-22-2022 ambulatory NON STAFF [facility] Work Phone: Start: 07-22-2022 End: 07-22-2022 Registered Recurring DO Isaías Muñozmiri II Work Phone: [facility] Work Phone: Start: 07-20-2022 End: 07-21-2022 ambulatory ISAÍAS Seals RADHA Facility:H1 Start: 07-06-2022 End: 07-06-2022 ambulatory DO Clint Alejandros Work Phone: [facility] Work Phone: Start: 07-06-2022 End: 07-06-2022 Departed Referred DO Clint Alejandros Work Phone: [facility] [place] Work Phone: Start: 06-26-2022 Registered Recurring DO Leroy Jean Baptiste [facility] Work Phone: Start: 06-24-2022 End: 06-24-2022 ambulatory DO Clint Alejandros Work Phone: [facility] Work Phone: Start: 06-24-2022 End: 06-24-2022 Registered Recurring DO Clint [facility] Start: 06-24-2022 End: 06-24-2022 ambulatory DO Clint Alejandros Work Phone: [facility] Work Phone: Start: 06-24-2022 End: 06-24-2022 Registered Recurring DO Clint Ale[facility]andros [facility] [place] Start: 06-22-2022 End: 06-23-2022 ambulatory ISAÍAS JORDAN Facility:H1 Start: 06-08-2022 End: 06-09-2022 ambulatory ISAÍAS JORDAN Facility:H1 Start: 06-03-2022 End: 06-03-2022 ambulatory DO Clint Alejandros Work Phone: [facility] Work Phone: Start: 06-03-2022 End: 06-03-2022 Registered Recurring DO Clint Ale[facility]ros [facility] Start: 06-01-2022 End: 06-02-2022 ambulatory ISAÍAS JORDAN Facility:H1 Start: 05-22-2022 End: 05-23-2022 ambulatory ISAÍAS Arnel JORADN Facility:H1 Start: 05-21-2022 Encounter for preprocedural laboratory examination DR CLINT JEAN BAPTISTE . [facility] Start: 05-18-2022 End: 05-19-2022 ambulatory [...] examination DR CLINT JEAN BAPTISTE . [facility] Start: 04-04-2022 Encounter for preprocedural laboratory examination DR CLINT JEAN BAPTISTE . [facility] Start: 04-02-2022 End: 2022 ambulatory [...] the presence orabsence of malignant disease.Performed at: [facility] [place], [place] [id number] Director: Edilson Saunders PhD, Phone: [phone] Start: 08-24-2024 Carcinoembryonic antigen cea Clint sullivan DO Work Phone: Comment on above: Nonsmokers <3.9 Smokers <5.6[employer] Electrochemiluminescence Immunoassay(ECLIA)Values obtained with different assay methods or kitscannot be used interchangeably. Results cannot beinterpreted as absolute evidence of the presence orabsence of malignant disease.Performed at: [facility] [place], [place] [id number] Director: Edilson Saunders PhD, Phone: [phone] Start: 03-15-2024 Removal of implantable venous access port Clint POMPAIvory Start: 01-15-2024 Carcinoembryonic antigen cea DO Clint Jean Baptiste Work Phone: Comment on above: Nonsmokers <3.9 Smokers <5.6[employer] Electrochemiluminescence Immunoassay(ECLIA)Values obtained with different assay methods or kitscannot be used interchangeably. Results cannot beinterpreted as absolute evidence of the presence orabsence of malignant disease.Performed at: [facility] [place], [place] [id number] Director: Edilson Saunders PhD, Phone: [phone] Start: 09-18-2023 Carcinoembryonic antigen cea DO Clint Jean Baptiste Work Phone: Comment on above: Nonsmokers <3.9 Smokers <5.6[employer] Electrochemiluminescence Immunoassay(ECLIA)Values obtained with different assay methods or kitscannot be used interchangeably. Results cannot beinterpreted as absolute evidence of the presence orabsence of malignant disease.Performed at: [facility]pe[facility]h60[address] [place], [place] [id number] Director: Edilson Saunders PhD, Phone: [phone] Start: 05-07-2023 Colonoscopy Clint Alejandros DO Work Phone: Start: 07-07-2022 Colonoscopy Clint LEAVITT Start: 05-22-2022 Insertion of implantable venous access device using fluoroscopic guidance Clint LEAVITT Start: 04-10-2022 Resection of Sigmoid Colon, Open Approach ISAÍAS JORDAN Start: 04-06-2022 Sigmoid colectomy Clint POMPAIvory Start: 03-13-2022 Colonoscopy Clint LEAVITT section Clint Dodson Esophagogastroduodenoscopy Gay LEAVITT Extraction of wisdom tooth Gay LEAVITT Repair of left inguinal hernia Clint POMPAIvory Plan of Treatment Date Care Activity Detail Author Start: 05-07-2033 Screening for malign ant neoplasm of colon [facility] Start: 05-07-2026 Screening for malign ant neoplasm of colon Colonoscopy [facility] Start: 04-18-2025 ambulatory Ambulatory [facility] Start: 04-04-2025 Patient referral [facility] Work Phone: Start: 03-21-2025 Patient referral [facility] Work Phone: Start: 03-15-2025 Adult BMI Screening Adult BMI Screen ing [facility] Start: 03-15-2025 Tobacco Screening Tobacco Screening [facility] Start: 03-07-2025 Influenza vaccination Influenz a Vaccine (#1) [facility] Start: 03-03-2025 Adult BMI Screening Adult BMI Screen ing [facility] Start: 03-03-2025 Tobacco Screening Tobacco Screening [facility] Start: 02-01-2025 End: 02-01-2025 [facility] Start: 12-21-2024 End: 12-21-2024 Patient encounter procedure 12/21/2024 8:40 AM EDT Office Visit [facility] [address] [place] [address] Constantino Martinez MD [address] [facility] [address] [place] [address] Arrived [facility] Comment on above: Arrived Start: 12-14-2024 Patient referral [facility] Work Phone: Start: 03-25-2024 End: 03-25-2024 Patient encounter procedure 03/25/2024 11:00 AM EDT Office Visit [facility] General Surgery [address] [place] [phone] Masha Richardson, CUSTOMER SUPPORT REPRESENTATIVE-ASPNET DEVELOPER [address] [place], [place] [id number] [facility] Start: 03-15-2024 End: 03-15-2024 Patient encounter procedure 03/15/2024 1:30 PM EDT Office Visit [facility] General Surgery [address] [place] [phone] Clint Jean Baptiste, [address] [place], [place] [phone] [facility] General Surgery Start: 03-07-2024 COVID-19 Vaccine ( season) COVID-19 Vaccine () [facility] Start: 03-07-2024 Influenza vaccination Influenza Vacc ine [facility] Start: 01-19-2024 Patient referral [facility] Work Phone: Start: 11-17-2023 Patient referral [facility] Work Phone: Start: 03-07-2023 COVID-19 Vaccine ( season) COVID-19 Vaccine ( season) [facility] Start: 11-18-2022 [facility] Start: 11-18-2022 [facility] Start: 11-04-2022 [facility] Start: 10-21-2022 [facility] Start: 10-21-2022 [facility] Start: 10-21-2022 [facility] Start: 09-23-2022 [facility] Start: 09-23-2022 [facility] Start: 09-16-2022 [facility] Start: 09-02-2022 [facility] Start: 08-19-2022 [facility] Start: 08-19-2022 [facility] Start: 08-05-2022 [facility] Start: 07-22-2022 [facility] Start: 07-09-2022 [facility] Start: 06-26-2022 [facility] Start: 06-24-2022 [facility] Start: 06-10-2022 Comprehensive metabo lic 2000 panel - Serum or Plasma [facility] Start: 06-10-2022 Magnesium measurement F [facility] Start: 06-10-2022 [facility] Start: 06-10-2022 [facility] Start: 06-03-2022 [facility] Start: 05-27-2022 [facility] Start: 2006 Screening for malign ant neoplasm of breast Mammogram [facility] Start: 1996 Screening for malign ant neoplasm of cervix [facility] Start: 1987 Screening for malign ant neoplasm of cervix Pap Smear [facility] Start: 1985 Administration of va ricella zoster vaccine Zoster (Shingles) Vaccine (1 of 2) [facility] Start: 1985 DTaP,Tdap and Td Vac cines (1 - Tdap) DTaP,Tdap and Td Vaccines (1 - Tdap) [facility] Start: 1984 Adult BMI Follow Up Plan Adult BMI Follow Up Plan [facility] Start: 1978 Depression Screening Depression Scre ening [facility] Start: 1966 Screening for malign ant neoplasm of colon [facility] Alanine aminotransfe rase [Enzymatic activity/volume] in Serum or Plasma by No addition of P-5'-P [facility] Work Phone: Alanine aminotransfe rase [Enzymatic activity/volume] in Serum or Plasma by No addition of P-5'-P [facility] Albumin [Mass/volume ] in Serum or Plasma [facility] Work Phone: Albumin [Mass/volume ] in Serum or Plasma [facility] Albumin/Globulin ratio [facility] Work Phone: Albumin/Globulin ratio [facility] Alkaline phosphatase [Enzymatic activity/volume] in Serum or Plasma [facility] Work Phone: Alkaline phosphatase [Enzymatic activity/volume] in Serum or Plasma [facility] Anion gap measurement [facility] Work Phone: Anion gap measurement [facility] Aspartate aminotrans ferase [Enzymatic activity/volume] in Serum or Plasma [facility] Work Phone: Aspartate aminotrans ferase [Enzymatic activity/volume] in Serum or Plasma [facility] Basophil count [facility] Work Phone: Basophil percent differential count [facility] Work Phone: Bilirubin.total [Mass/volume] in Serum or Plasma [facility] Work Phone: Bilirubin.total [Mass/volume] in Serum or Plasma [facility] Calcium [Mass/volume ] in Serum or Plasma [facility] Work Phone: Calcium [Mass/volume ] in Serum or Plasma [facility] Carbon dioxide, tota l [Moles/volume] in Serum or Plasma [facility] Work Phone: Carbon dioxide, tota l [Moles/volume] in Serum or Plasma [facility] Carcinoembryonic Ag [Mass/volume] in Serum or Plasma [facility] Chloride [Moles/volu me] in Serum or Plasma [facility] Work Phone: Chloride [Moles/volu me] in Serum or Plasma [facility] Choriogonadotropin ( test) [Presence] in Urine [facility] Comprehensive metabo lic 1999 panel - Serum or Plasma [facility] Comprehensive metabo lic 1999 panel - Serum or Plasma [facility] Comprehensive metabo lic 1999 panel - Serum or Plasma [facility] Comprehensive metabo lic 1999 panel - Serum or Plasma [facility] Comprehensive metabo lic 1999 panel - Serum or Plasma [facility] Comprehensive metabo lic 1999 panel - Serum or Plasma [facility] Comprehensive metabo lic 1999 panel - Serum or Plasma [facility] Comprehensive metabo lic 1999 panel - Serum or Plasma [facility] Comprehensive metabo lic 1999 panel - Serum or Plasma [facility] Comprehensive metabo lic 1999 panel - Serum or Plasma [facility] Comprehensive metabo lic 1999 panel - Serum or Plasma [facility] Comprehensive metabo lic 1999 panel - Serum or Plasma [facility] Comprehensive metabo lic 1999 panel - Serum or Plasma [facility] Comprehensive metabo lic 1999 panel - Serum or Plasma [facility] Comprehensive metabo lic 1999 panel - Serum or Plasma [facility] Creatinine and Glome rular filtration rate.predicted panel - Serum, Plasma or Blood [facility] Work Phone: Creatinine and Glome rular filtration rate.predicted panel - Serum, Plasma or Blood [facility] CT Abdomen and Pelvi s W contrast IV [facility] CT Abdomen and Pelvi s W contrast IV [facility] CT Abdomen and Pelvi s W contrast IV [facility] CT Abdomen and Pelvi s W contrast IV [facility] CT Abdomen and Pelvi s W contrast IV [facility] CT Abdomen and Pelvi s W contrast IV [facility] CT Chest W contrast IV [facility] CT Chest W contrast IV [facility] CT Chest W contrast IV [facility] CT Chest W contrast IV [facility] CT Chest W contrast IV [facility] CT Chest W contrast IV [facility] Eosinophil percent differential count [facility] Work Phone: Eosinophils [#/volum e] in Blood [facility] Work Phone: Erythrocyte mean cor puscular volume determination [facility] Work Phone: Erythrocytes [#/volu me] in Blood [facility] Work Phone: Globulin [Mass/volum e] in Serum [facility] Work Phone: Globulin [Mass/volum e] in Serum [facility] Glucose [Mass/volume ] in Serum or Plasma [facility] Work Phone: Glucose [Mass/volume ] in Serum or Plasma [facility] Hematocrit [Volume F raction] of Blood [facility] Work Phone: Hemoglobin [Mass/vol ume] in Blood [facility] Work Phone: Hemoglobin distribut ion, width determination [facility] Work Phone: Leukocytes [#/volume ] in Blood [facility] Work Phone: Lymphocyte count [facility] Work Phone: Lymphocyte percent differential count [facility] Work Phone: Magnesium measurement [facility] Magnesium measurement [facility] Magnesium measurement [facility] Mean corpuscular hem oglobin concentration determination [facility] Work Phone: Mean corpuscular hem oglobin determination [facility] Work Phone: Measurement of renal function [facility] Work Phone: Measurement of renal function [facility] MG Breast - bilatera l Screening [facility] Monocyte count [facility] Work Phone: Monocyte percent differential count [facility] Work Phone: Neutrophil count [facility] Work Phone: Neutrophil percent differential count [facility] Work Phone: Patient Education [facility] Work Phone: Patient referral [facility] Work Phone: Platelet mean volume determination [facility] Work Phone: Platelets [#/volume] in Blood [facility] Work Phone: Potassium [Moles/vol ume] in Serum or Plasma [facility] Work Phone: Potassium [Moles/vol ume] in Serum or Plasma [facility] Protein [Mass/volume ] in Serum or Plasma [facility] Work Phone: Protein [Mass/volume ] in Serum or Plasma [facility] Sodium [Moles/volume ] in Serum or Plasma [facility] Work Phone: Sodium [Moles/volume ] in Serum or Plasma [facility] Urea nitrogen [Mass/ volume] in Serum or Plasma [facility] Work Phone: Urea nitrogen [Mass/ volume] in Serum or Plasma [facility] Immunizations Immunization Date Immunization Notes Care Provider [facility] 05-18-2024 influenza virus vaccine, unspecified formulation Carlyn Turner NP Work Phone: [facility] 05-16-2022 SARS-CoV-2 (COVID-19 ) [id number] Clint LEAVITT [facility] [place] 04-27-2021 SARS-CoV-2 (COVID-19 ) mRNA-1273 vaccine Clint LEAVITT [facility] [place] 08-02-2020 SARS-CoV-2 (COVID-19 ) mRNA-1273 vaccine Clint LEAVITT [facility] 07-04-2020 SARS-CoV-2 (COVID-19 ) mRNA-1273 vaccine Clint LEAVITT [facility] Payers Date Payer Category Payer Private Health Insurance [id number] 2024 Self-pay 2022 [facility] er [id number] 2022 Unknown KAYLEY NARAYANAN SS (PPO) [id number] 2022- [phone] [address] [place] [address] [id number]. [id number] 2022 Unknown [id number] 2019 Unknown [id number] 1966 Unknown [id number] 2.16.840.1.878172.3.579.2. 593 1966 Unknown [id number] 2.16.840.1.666498.3.579.2. 593 1966 Unknown [id number] 2.16.840.1.349657.3.579.2. 593 1966 Unknown [id number] 2.16.840.1.724913.3.579.2. 593 1966 Unknown [id number] 2.16.840.1.442767.3.579.2. 593 1966 Unknown [id number] 2.16.840.1.663788.3.579.2. 593 1966 Unknown [id number] 2.16.840.1.376999.3.579.2. 593 1966 Unknown [id number] 2.16.840.1.910019.3.579.2. 593 1966 Unknown [id number] 2.16.840.1.261464.3.579.2. 59 1966 Unknown [id number] 2.16.840.1.578040.3.579.2. 593 1966 Unknown [id number] 2.16.840.1.290686.3.579.2. 593 1966 Unknown [id number] 2.16.840.1.418190.3.579.2. 593 1966 Unknown [id number] 2.16.840.1.307320.3.579.2. 593 1966 Unknown [id number] 2.16.840.1.037617.3.579.2. 593 1966 Unknown [id number] 2.16.840.1.090989.3.579.2. 593 1966 Unknown [id number] 2.16.840.1.560152.3.579.2. 593 1966 Unknown [id number] 2.16.840.1.448196.3.579.2. 593 1966 Unknown [id number] 2.16.840.1.773242.3.579.2. 593 1966 Unknown [id number] 2.16.840.1.297836.3.579.2. 593 1966 Unknown [id number] 2.16.840.1.170165.3.579.2. 593 1966 Unknown [id number] 2.16.840.1.725036.3.579.2. 593 1966 Unknown [id number] 2.16.840.1.444163.3.579.2. 593 1966 Unknown [id number] 2.16.840.1.968582.3.579.2. 593 1966 Unknown [id number] 2.16.840.1.382613.3.579.2. 593 1966 Unknown [id number] 2.16.840.1.505783.3.579.2. 1286 1966 Unknown [id number] 2.16.840.1.418567.3.579.2. 1286 1966 Unknown [id number] 2.16.840.1.624126.3.579.2. 1286 1966 Unknown [id number] 2.16.840.1.458576.3.579.2. 1259 1966 Unknown [id number] 2.16.840.1.611372.3.579.2. 727 1966 Unknown [id number] 2.16.840.1.101854.3.579.2. 182 1966 Unknown [id number] 2.16.840.1.092090.3.579.2. 182 Unknown [id number] Unknown [id number] 2.16.840.1.068469.3.579.2. 531 Unknown [id number] 2.16.840.1.630017.3.579.2. 531 Unknown [id number] 2.16.840.1.957445.3.579.2. 531 Social History Date Type Detail Facility Start: 05-27-2022 End: 04-13-2025 Tobacco smoking status NHIS Never smoked tobacco (finding) [facility] Start: 1965 Sex Assigned At Female F [facility] Start: 03-03-2024 End: 12-21-2024 Sex Assigned At [employer] Other Start: 04-19-2022 Tobacco smoking status NHIS Ex-smoker [facility] History of tobacco use Current smoker [facility] History of tobacco use Cigarette Smoker [facility] Start: 04-19-2022 End: 12-21-2024 Tobacco use and exposure Smokeless tobacco non-user [facility] Start: 03-03-2024 End: 12-21-2024 Alcoholic beverage intake Current drinker of alcohol (finding) [facility] Start: 03-03-2024 End: 12-21-2024 History of Social function [facility] Within the past 12 months we worried whether our food would run out before we got money to buy more. Never True [facility] Start: 04-19-2022 Tobacco Comment smoked when pa tient was 18 for 6 months [facility] Start: 05-01-2023 Alcohol Comment occasionally [facility] Start: 1965 Sex assigned at Not on file P [facility] Start: 09-06-2024 End: 12-14-2024 Sex Female (finding) [facility] Tobacco smoking status NHIS Tobacco smoking consumption unknown [facility] Start: 12-21-2024 Alcohol Comment occ [facility] Sexual Orientation [facility] General Surgery [place] NEGATED: Highlighted row N [facility] Goals Date Patient Goal Desired Activity /State Clinical Notes 04-21-2021 to 04-13-2025 Constantino Martinez MD - 12/21/2024 8:40 AM EDT Note Date & Type Note Facility 04-13-2025 Note General Surgery Offi ce/Clinic Note Chief Complaint consultation for port placement HPI Staff 60 year old female presents on consultation from Dr. Jordan for port placement due to recurrent colon carcinoma. Previous left port placement completed 05/2022 and removal 03/2024. History of Present Illness 60 yo female with h/o GERD, anxiety, glaucoma, recurrent colon cancer, referred for [id number] insertion; patient has h/o sigmoid colectomy in 2021 for colon cancer, had left subclavian port placed 05/2022; removed 1 year ago; oncology has requested port placement for chemotherapy due to recurrence of cancer; no h/o XRT to chest wall, no h/o clavicular fx; no asa or NSAID use; no tobacco use. Review of Systems PHQ Score Initial Depression Screen Score: 0 SCORE ROS - Provider Constitutional: no fever, no sweats, no weight loss. Eyes: yes glasses, no blurred vision, no visual loss. ENMT: no dentures, no hoarseness, no swallowing difficulties, no hearing loss, no ear infection(s), no nose bleeds. Cardiovascular: normal blood pressure, no chest pain, regular heartbeat, no heart murmur. Respiratory: no shortness of breath, no cough, no asthma, no wheezing. Gastrointestinal: no nausea, no vomiting, no diarrhea, no constipation, no blood in stool, no change in bowel habits, no abdominal pain, no hepatitis. Genitourinary: no kidney stones, no urine infection, no dysuria. Musculoskeletal: no pain, no weakness. Skin: no changing moles, no rash, no skin lumps. Neurologic: no seizures, no epilepsy, no headache. Psychiatric: no emotional or psychiatric problem. Heme/Lymph: no bleeding problems, no anemia, no blood clots, no transfusions. Allergy/Immunologic: no swollen lymph nodes/glands, no IV drug abuse. Other: Additional ROS info: Except as noted in the above Review of Systems and in the History of Present Illness, all other systems have been reviewed and are negative or noncontributory. Physical Exam Vitals & Measurements HR: 80(Peripheral) RR: 16 BP: 126/86 HT: 64 in HT: 162 cm WT: 160.055 lb WT: 72.6 kg BMI: 27.66 HEENT: normal conjunctiva, sclera clear, no scleral icterus, EOM intact, PERRLA, oral mucosa moist without lesions. Neck: trachea midline, no mass, symmetric, no thyromegaly or nodules, no adenopathy; no clavicular deformity Respiratory: lungs CTA, respirations non labored. Cardiovascular: regular rate and rhythm, no murmur, no pedal edema or varicosities. Gastrointestinal: soft, non distended, no tenderness, no masses, no palpable hernias, diastasis recti no, no hepatosplenomegaly; normal bs Lymphatic: no cervical adenopathy, Musculoskeletal: normal gait, digits and nails without infection, nodes, cyanosis, clubbing. Skin: no rashes, no lesions, no ulcers, no subcutaneous nodules, induration. Psychiatric/Neuro: oriented to time, place, person, judgement normal, affect appropriate for age, insight intact, no focal deficits. Tests: x-rays reviewed, review of old records completed , Discussed surgical options, risks, and possible complications with patient. Assessment/Plan 1. Recurrent carcinoma of colon (C18.9: Malignant neoplasm of colon, unspecified) plan right adustp-o-uihx insertion under anesthesia; informed consent obtained. Ancef 2 gms IV prior to OR SCDs Follow-up No qualifying data available Problem List/Past Medical History Ongoing Anxiety BMI 27.0-27.9,adult Gastroesophageal reflux disease Glaucoma Overweight Recurrent carcinoma of colon Historical No qualifying data Procedure/Surgical History Removal of implantable venous access port (03/15/2024), Colonoscopy (2022), Insertion of implantable venous access device using fluoroscopic guidance. (05/22/2022), Sigmoid colectomy (04/2022), Colonoscopy (03/13/2022), section, EGD - esophagogastroduodenoscopy, Extraction of wisdom tooth, Repair of left inguinal hernia. Medications brimonidine Opth 0.2% [place], 1 drop(s), Eye-Both, BID Cosopt Plus 2%-0.5% Soln-Opth, 1 drop(s), Eye-Both, BID latanoprost 0.005% ophthalmic emulsion, 1 drop(s), Eye-Both, BID pantoprazole Vitamin D3 1000 intl units (25 mcg) Tab, 25 mcg= 1 tab(s), Oral, Daily Allergies HYDROcodone (Nausea) codeine (Gastrointestinal upset) Social History Alcohol - Denies Alcohol Use, 04/13/2025 Substance Abuse - Denies Substance Abuse, 04/13/2025 Tobacco Never (less than 100 in lifetime) Tobacco Use:. Never Smokeless Tobacco Use:., 04/13/2025 Family History Acute myocardial infarction: Mother. Dementia: Mother. Diabetes mellitus type 2: Mother. Heart disease: Mother. Hypertension: Mother, Father, Sister and Brother. Pancreatic adenocarcinoma: Sister. Parkinson disease: Father. Immunizations Vaccine Date Status SARS-CoV-2 (COVID-19) mRNAMUL.ORD![id number] 05/16/2022 Recorded SARS-CoV-2 (COVID-19) mRNA-1273 vaccine 04/27/2021 Recorded SARS-CoV-2 (COVID-19) mRNA-1273 vaccine 08/02/2020 Recorded SARS-CoV-2 (COVID-19) mRNA-1 (more content not included)... [facility] Comment on above: Result Comment: Elec tronically Signed By: DAGMAR EMMANUEL, Clint Muhammad\Date and Time Signed: 04/13/25 14:21 EDT 12-21-2024 History of Present illness Narrative Subjective Patient ID: Shasta Gardner [...] gland hypertrophy 12/20/2024 Situational anxiety 12/20/2024 bleeding ([facility]) 05/15/2022 Resolved Ambulatory Problems Diagnosis Date [...] improvement. documented in this encounter [facility] 12-14-2024 Chief complaint+R dada for visit [...] 7am Screening mammogram for breast cancer Ju de 2024 10:37am Wellness examination December 20, 2024 10: 37am [facility] Work Phone: 1([phone]) 878-650406-10-2025 Evaluation note* Diagnosis Onset Date Resolution Status Admit Date GERD (gastroesophageal reflu x disease) acute December 14, 2024 9:27am Pharyngitis, chronic acute December 14, 2024 9:27am Globus sensation acute December 10:37am Screening mammogram for binh st cancer acute December 20, 2024 10:37am Wellness examination acute December 20, 2024 10:37am [facility] Work Phone: 1([phone]) 502-183112-26-2024 Evaluation note* Diagnosis Onset Date Resolution Status Admit Date Osteoarthritis acute June 072023 10:57am Situational anxiety acute Decem 2023 10:57am Abnormal LFTs acute September 06, 2024 1:19pm Chemotherapy-induced periphe ral neuropathy acute September 06, 2024 1:19pm Colon cancer acute September 06, 2 025 1:19pm Encounter for chemotherapy management acute September 06, 2024 1:19pm [facility] Work Phone: 1(356) 844-859209-19-2024 History of Present illness Narrative* Masha Richardson, OLIVIA-ASPNET DEVELOPER - 03/25/2024 11:00 AM EDT Subjective Marysol [...] of removal of Port-a-Cath [Z98.890] RAEGAN TAYLOR [facility] General Surgery [place] This note was created with the assistance of a speech recognition program. While intending to generate a timely document that accurately reflects the content of the visit, no guarantee can be provided that every grammatical or spelling mistake has been or will be identified or corrected. Thank you for your understanding. RAEGAN Taylor 03/25/24 1143 [facility] History of Present illness Narrative* Clint Jean [...] weeks for suture removal. [facility] History of Present illness Narrative* Clint Klever DO Ita - 03/03/2024 10:15 AM EDT Images from the original note were not included. [facility] [place] [facility] [facility] [id number] Progress NOTE CHIEF COMPLAINT Chief Complaint Patient [...] a history of colon cancer resected by ok April 10, 2022 at the [facility]. Her last colonoscopy was in May, and was normal. 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 MEDICATION Current Outpatient Medications: brimonidine [...] by mouth daily., Disp: , Rfl: omega 4-uyw-jbm-fish oil (Fish OiL) 300-1,000 mg capsule, Take by mouth., Disp: , Rfl: omeprazole (PriLOSEC) 20 mg capsule, PATIENT REPORTS NEEDED , Disp: , Rfl: ALLERGY Allergies Allergen Reactions Hydrocodone Nausea And Vomiting Patient reports it was many years ago Codeine GI Disturbance MEDICAL HISTORY Past Medical History: Diagnosis Date Colon cancer ([facility] Female pelvic congestion syndrome 02/20/2023 Glaucoma of both eyes bleeding SURGICAL HISTORY Past Surgical History: Procedure Laterality Date SECTION HERNIA REPAIR inguinal hernia LEFT COLECTOMY SIGMOID COLON RESECTION BY DR JEAN BAPTISTE, AT [facility] WISDOM TOOTH EXTRACTION SOCIAL HISTORY Social [...] patient/family/caregiver Referring and communicating with other health child care worker History of colon cancer [Z85.038] Clint Jean Baptiste DO This note was created with the assistance of a speech recognition program. While intending to generate a timely document that accurately reflects the content of the visit, no guarantee can be provided that every grammatical or spelling mistake has been or will be identified or corrected. Thank you for your understanding. [facility] Evaluation note* Encounter Date Diagnosis Assessment Notes [...] for PT printed and given to pt. [employer] Other 09-18-2023 Progress note Author Isaías Jordan [facility] March 24, 2023 11:05am Note Date/Time March 24, 2023 10:55am [facility] [place] [id number] Hem/Onc Follow Up Note - OP Signed Patient: Marysol Gradner MR#: [id number] : 1965 Acct:[id number] Age/Sex: 57 / F Type: REG RCR [...] prior to f/u. f/u with me or strip cutter in may/jun. renew her celebrex prescription. - History of Present Illness Chief Complaint: Patient is here for a 5 month follow up with labs and outside notes and radiology for review. 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 Labs reviewed on patient's chart from [place] - no significant cytopenias or electrolyte, renal/hepatic [...] count 92,000. No focal signs/symptoms of infection 2/27/23 She is doing well overall. her neuropathy has improved. 10/21/22 She just got back from visiting her mother and family in [place]. She has no neuropathy at all. last [...] Also engorged periuterine vessels. She has seen boxcar weigher. she had transvaginal ultrasound. This will be monitored. Her APPRENTICE PLUMBER has offered her a dexa scan. Her [...] for coordination of care (as documented) and zijs-ru-gsbl counseling of patient and/or family. [facility] - Medical History Medical History: [...] % (Auto) 47.6, Lymph % (Auto) 39.4, [place] % (Auto) 9.0, Eos % (Auto) 2.8, Baso % (Auto) 1.2, Nucleat RBC Rel Count 0.1, Neut # (Auto) 2.4, Lymph # (Auto) 2.0, [place] # (Auto) 0.5, Eos # (Auto) 0.1, [...] by Isaías Jordan II, DO> 03/24/23 1105 [facility] Work Phone: 1([phone]) 600-933104-17-2023 Progress note Author Isaías Jordan [facility] October 21, 2022 8:50am Note Date/Time October 21, 2022 8:3 8am [facility] at [address] [address] Hem/Onc Follow Up Note - OP Signed Patient: Marysol Gardner MR#: [id number] : 1965 Acct:[id number] Age/Sex: 57 / F Type: REG RCR [...] 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 Labs reviewed on patient's chart from [place] - no significant cytopenias or electrolyte, renal/hepatic [...] from visiting her mother and family in [place]. She has no neuropathy at all. last [...] for coordination of care (as documented) and oglx-zg-whnv counseling of patient and/or family. [facility] - Medical History Medical History: [...] <Electronically signed by Isaías Jordan II DO> 10/21/22 0850 [facility] Work Phone: 1(870) 162-110302-27-2023 Progress note Author Isaías Jordan [facility] September 02, 2022 9:09am Note Date/Time September 02, 2022 8:58am [facility] [place] [id number] Hem/Onc Follow Up Note - OP Signed Patient: Marysol Gardner MR#: [id number] : 1965 Acct:[id number] Age/Sex: 57 / F Type: REG RCR [...] 4 or 6 weeks with me or strip cutter. - History of Present Illness Chief Complaint: Patient is here for a 2 week follow up with outside labs for review, prior to treatment today. States she is feeling remarkably better. 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 Labs reviewed on patient's chart from [place] - no significant cytopenias or electrolyte, renal/hepatic [...] for coordination of care (as documented) and ezty-ee-dumt counseling of patient and/or family. [facility] - Medical History Medical History: [...] by Isaías Jordan II, DO> 09/02/22 0909 [facility] Work Phone: [phone]) 465-903502-13-2023 Hospital Discharge instructionsAmbulatory Orders* Proceed with Treatment Time Frame: 08/19/22, Location: Determined By Patient [facility] Work Phone: [phone]) 545-870502-13-2023 Hospital Discharge instructionsAmbulatory Orders* Proceed with Treatment Time Frame: 08/19/22, Location: Determined By Patient * Proceed with Treatment Time Frame: 09/02/22, Location: Determined By Patient * RISE Order Time Frame: 1 Week, Location: Determined By Patient [facility] Work Phone: [phone]) 917-579802-13-2023 Hospital Discharge instructionsAmbulatory Orders* Proceed with Treatment Time Frame: 08/19/22, Location: Determined By Patient * Proceed with Treatment Time Frame: 09/02/22, Location: Determined By Patient * RISE Order Time Frame: 1 Week, Location: Determined By Patient * Referral to General Surgery Time Frame: 04/04/25, Location: None Selected [facility] Work Phone: 1([phone]) 870-119102-13-2023 Progress note Author Dayansamantha Magallno [facility] August 19, 2022 11:20am Note Date/Time August 19, 2022 11:14am [facility] [place] [address] Hem/Onc Follow Up Note - OP Signed Patient: Marysol Gardner MR#: [id number] : 1965 Acct:[id number] Age/Sex: 57 / F Type: REG RCR Copies to: MD Clint Bernstein,DO~ Subjective Date/Time of Service: Date of Service: 08/19/2022 Time of Service: 11:12 Chief Complaint: Patient is here for a 1 month follow up with labs for review, prior to treatment today. No concerns voiced. 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 Labs reviewed on patient's chart from [place] - no significant cytopenias or electrolyte, renal/hepatic [...] for coordination of care (as documented) and zdhk-dt-yljl counseling of patient and/or family. Dictated By: Dayan Magallon APRN DD/ 11 Signed By: <Electronically signed by OLIVIA Magallon> 08/19/22 1120 [facility] Work Phone: 1([phone]) 569-325701-16-2023 Progress note Author Dayan Magallon [facility] July 22, 2022 11:46am Note Date/Time July 22, 2022 1 1:36am [facility] at [address] [address] Hem/Onc Follow Up Note - OP Signed Patient: Marysol Gardner MR#: [id number] : 1965 Acct:[id number] Age/Sex: 57 / F Type: REG RCR Copies to: MD Clint Bernstein,DO~ Subjective Date/Time of Service: Date of Service: 07/22/2022 Time of Service: 11:34 Chief Complaint: Patient is here today for a one month follow up visit for coloncancer and go over labs. 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 Labs reviewed on patient's chart from [place] - no significant cytopenias or electrolyte, renal/hepatic [...] 10 point review of systems is negative. [facility] - Medical History Medical History: [...] for coordination of care (as documented) and ydog-ze-brfm counseling of patient and/or family. Dictated By: Dayan Magallon APRN DD/ 1134 Signed By: <Electronically signed by OLIVIA Magallon> 07/22/22 1146 [facility] Work Phone: 1([phone]) 931-884812-19-2022 Progress note Author Isaías Jordan [facility] June 24, 2022 9:49am Note Date/Time June 24, 2022 9:42am [facility] [place] [address] Hem/Onc Follow Up Note - OP Signed Patient: Marysol Gardner MR#: [id number] : 1965 Acct:[id number] Age/Sex: 57 / F Type: REG RCR [...] cotn folfox q2wks. f/u with me or strip cutter in a month. cbc, cmp on treatemet days. cea prior to f/u. 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 Labs reviewed on patient's chart from [place] - no significant cytopenias or electrolyte, renal/hepatic [...] for coordination of care (as documented) and imqk-ez-owtd counseling of patient and/or family. 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 Labs reviewed on patient's chart from [place] - no significant cytopenias or electrolyte, renal/hepatic issues. - Summary of Therapies Summary of Therapies: FOLFOX chemotherapy (adjuvant) 1. Cycle 1, Day 1: 05/27/2022 Subjective/ROS - Narrative: As per the HPI, otherwise 10 point review of systems is negative. 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 - plan Cycle 2, [...] for coordination of care (as documented) and fkjz-fg-nlhw counseling of patient and/or family. 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 She began having [...] 13, 2022, scope could not be passed qluesc56 cm due to a tumor in the [...] for coordination of care (as documented) and taqy-cs-tawu counseling of patient and/or family. [facility] - Medical History Medical History: [...] by Isaías Jordan II, DO> 05/27/22 0953 [facility] Work Phone: 1([phone]) 258-425210-28-2022 Progress note Author Isaías Jordan [facility] May 03, 2022 3:28pm Note Date/Time May 03, 2022 3 :00pm [facility] at [address] [address] Hem/Onc Follow Up Note - OP Signed Patient: Marysol Gardner MR#: [id number] : 1965 Acct:[id number] Age/Sex: 57 / F Type: REG RCR Copies to: MD Clint Bernstein,DO~ Date of Service: 05/03/2022 Time of Service: [...] 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 She began having [...] 13, 2022, scope could not be passed bhrwso87 cm due to a tumor in the [...] for coordination of care (as documented) and qoym-di-rgvq counseling of patient and/or family. [facility] - Medical History Medical History: [...] by Isaías Jordan II, DO> 05/03/22 1528 [facility] Work Phone: [phone]) 720-666210-01-2022 History general Narrative - Reported* Type Description Date Medical History Colon cancer Medical History Pelvic congestion syndrome Surgical History Bowel resection 04/2022 Surgical History C -Section 2005 Surgical History Hernia repair 2001 Surgical History [place] teeth [employer]dy[employer]ounce Other 09-07-2022 NoteOPERATIVE NOTE OPERATION DATE: 03/13/2022 [...] the abdomen and pelvis performed at the [facility], January 09, which was read [...] diagnosis, then she will need surgical therapy.[id number] NotePatient Education Materials Follows: Laceration Care, Adult [...] needed: ? Soap. ? Water. ? Hand bleach range operator. ? Bandage (dressing). ? Antibiotic ointment. ? Clean towel. How to take care of your cut Wash your hands with soap and water before touching your wound or changing your bandage. If soap and water are not available, use hand bleach range operator. If your doctor used stitches or yuridia: [...] off the skin. General instructions ? Take ysoo-zlm-kjijrgg and prescription medicines only as told by [...] anywhere on your body. (more content not included)...[facility] complaint+Reason for visit Narrative* Chief Complaint Admit Date Sore Throat/ENT Referral December 14, 2024 9:27am Reason for Visit Admit Date Pharyngitis, chronic December 14, 2024 9:2 7am [facility] Work Phone: evaluation + Plan note No data available for this section [facility] [place] Evaluation note* Diagnosis Onset Date Resolution Status Colon cancer acute Encounter for chemotherapy management acute [facility] Work Phone: evaluation note* Diagnosis Onset Date Resolution Status Abnormal LFTs acute Chemotherapy-induced peripheral neuropathy acute Colon cancer acute Encounter for chemotherapy management acute [facility] Work Phone: evaluation noteNo assessment information available [facility] Work Phone: evalurmujb note* Diagnosis Onset Date Resolution Status Colon cancer acute Abnormal LFTs acute Chemotherapy-induced peripheral neuropathy acute Colon cancer acute Encounter for chemotherapy management acute Salivary gland hypertrophy a cute [facility] Work Phone: evaluation note* Diagnosis Onset Date Resolution Status Salivary gland hypertrophy a cute Abnormal LFTs acute Chemotherapy-induced peripheral neuropathy acute Colon cancer acute Encounter for chemotherapy management acute [facility] Work Phone: evaluation note* Diagnosis History of colon cancer- Primary Personal history of malignant neoplasm of large intestine [facility] History of colon cancer- Primary Personal history of malignant neoplasm of large intestine [facility] Diagnosis History of removal of Apcg-m-Xupk- Primary History of colon cancer Personal history of malignant neoplasm of large intestine [facility] Diagnosis Onset Date Resolution Status Admit Date Pharyngitis, chronic acute December 14, 2024 9:27am [facility] Work Phone: Evaluation note* Diagnosis Globus sensation- Primary Gastrointestinal malfunction arising from mental factors LPRD (laryngopharyngeal reflux disease) Acute laryngitis, without mention of obstruction documented in this encounter [facility]* Diagnosis Onset Date Resolution Status Admit Date Abnormal LFTs acute March 072024 1:07pm Chemotherapy-induced peripheral neuropathy acute March 21, 2025 1:07pm Colon cancer acute March 212024 1:07pm Encounter for chemotherapy management acute March 21, 2025 1:07pm [facility] Work Phone: Evaluation note* Diagnosis Onset Date Resolution Status Admit Date Abnormal LFTs acute March 082024 1:09pm 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, 2025 1:09pm Colon cancer acute April 042024 1:09pm Encounter for chemotherapy management acute April 04, 2025 1:09pm [facility] Work Phone: Hospital Discharge instructionsAmbulatory Orders* Proceed with Treatment Time Frame: 08/19/22, Location: Determined By Patient [facility] Work Phone: Hospital Discharge instructionsAmbulatory Orders* Referral to ENT Time Frame: 11/17/23, Location: None Selected [facility] Work Phone: Hospital Discharge instructionsAmbulatory Orders* Referral to ENT Time Frame: 12/14/24, Location: None [facility] Work Phone: Hospital Discharge instructions Additional Instructions [...] NOT operate machinery such as power tools, [employer] mowers, [employer] blowers, sewing machines, etc. for 24 hours. [...] problems. -Follow up with PCP. -Office number [phone]. [facility] Work Phone: Hospital Discharge instructions No data available for this section [facility] [place] InstructionsNot on filedocumented in this encounter [facility] filedocumented in this [facility] on filedocumented in this encounter [facility] Health SystemProgress note Author Dayan Magallon [facility] June 03, 2022 8:41am Note Date/Time June 03, 2022 8:14[facility] [place] [id number] Hem/Onc Follow Up Note - OP Signed Patient: Marysol Gardner MR#: [id number] : 1965 Acct:[id number] Age/Sex: 57 / F Type: REG RCR [...] 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 Labs reviewed on patient's chart from [place] - no significant cytopenias or electrolyte, renal/hepatic issues. - Summary of Therapies Summary of Therapies: FOLFOX chemotherapy (adjuvant) 1. Cycle 1, Day 1: 05/27/2022 Subjective/ROS - Narrative: As per the HPI, otherwise 10 point review of systems is negative. 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 - plan Cycle 2, [...] for coordination of care (as documented) and gvvs-su-bcmh counseling of patient and/or family. Dictated By: Dayan Magallon APRN DD/ 3 Signed By: <Electronically signed by OLIVIA Magallon> 06/03/22840 [facility] Work Phone: Progress note Author Isaías Jordan [facility] June 24, 2022 9:49am Note Date/Time June 24, 2022 9:42am [facility] [place] [address] Hem/Onc Follow Up Note - OP Signed Patient: Marysol Gardner MR#: [id number] : 1965 Acct:[id number] Age/Sex: 57 / F Type: REG RCR [...] cotn folfox q2wks. f/u with me or strip cutter in a month. cbc, cmp on treatemet days. cea prior to f/u. 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 Labs reviewed on patient's chart from [place] - no significant cytopenias or electrolyte, renal/hepatic [...] for coordination of care (as documented) and zquu-vi-iqkl counseling of patient and/or family. [facility] - Medical History Medical History: [...] by Isaías Jordan II, DO> 06/24/22 0949 [facility] Work Phone: Progress note Author Dayan Magallon [facility] July 22, 2022 11:46am Note Date/Time July 22, 2022 1 1:36am [facility] [place] [address] Hem/Onc Follow Up Note - OP Signed Patient: Marysol Gardner MR#: [id number] : 1965 Acct:[id number] Age/Sex: 57 / F Type: REG RCR Copies to: MD Clint Bernstein DO~ Subjective Date/Time of Service: Date of Service: 07/22/2022 Time of Service: 11:34 Chief Complaint: Patient is here today for a one month follow up visit for coloncancer and go over labs. 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 Labs reviewed on patient's chart from [place] - no significant cytopenias or electrolyte, renal/hepatic [...] 10 point review of systems is negative. [facility] - Medical History Medical History: [...] for coordination of care (as documented) and nmps-kb-eear counseling of patient and/or family. Dictated By: Dayan Magallon APRN DD/ 1134 Signed By: <Electronically signed by OLIVIA Magallon> 07/22/22 1146 [facility] Work Phone: Progress note Author Isaías Jordan [facility] September 02, 2022 9:09am Note Date/Time September 02, 2022 8:58am [facility] [place] [address] Hem/Onc Follow Up Note - OP Signed Patient: Marysol Gardner MR#: [id number] : 1965 Acct:[id number] Age/Sex: 57 / F Type: REG RCR [...] 4 or 6 weeks with me or strip cutter. - History of Present Illness Chief Complaint: Patient is here for a 2 week follow up with outside labs for review, prior to treatment today. States she is feeling remarkably better. 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 Labs reviewed on patient's chart from [place] - no significant cytopenias or electrolyte, renal/hepatic [...] for coordination of care (as documented) and nzze-bn-nzza counseling of patient and/or family. 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 Labs reviewed on patient's chart from [place] - no significant cytopenias or electrolyte, renal/hepatic [...] Also engorged periuterine vessels. She has seen boxcar weigher. she had transvaginal ultrasound. This will be monitored. Her APPRENTICE PLUMBER has offered her a dexa scan. Her [...] january with no evidence recurrence. done at [facility]. Intake Vitals/Pain Assessment 01/19/24 11:22 Height 5 [...] latanoprost 0.005% 1 drp Eye-Both QPM omega 4-kzp-bpv-fish oil 300-1,000 mg (Fish Oil) 1 cap [...] No concerns voiced at time of intake. [facility] History Attestation statement: The following information was validated with the patient. Medical History Medical History delivery delivered Colon cancer Cancer (03/26/22) COVID bleeding Glaucoma of both eyes Surgical History Surgical History [place] teeth extracted S/P hernia repair History of [...] by Isaías Jordan II, DO> 01/19/24 1205 [facility] Work Phone: Progress note No data available for this section [facility] [place] Reason for referral (narrative)No reason for referral information available[facility] Work Phone: Summary Purpose Family History [...] Malignant neoplasm of pancreas Unknown Advance Directives Advance Directive Response Recorded [...] 1:19 pm Encounter for chemotherapy management [facility] 2024 1:19pm Chief Complaint Admit Date EGD [...] CREATED AUTHOR AUTHOR'S ORGANIZ ATION 11/17/2022 [facility] DATE CREATED AUTHOR AUTHOR'S ORGANIZ ATION 03/27/2024 [facility] DATE CREATED AUTHOR AUTHOR'S ORGANIZ ATION 12/23/2024 [facility] EPIC DATE CREATED AUTHOR AUTHOR'S ORGANIZ ATION 04/08/2025 [facility] DATE CREATED AUTHOR AUTHOR'S ORGANIZ ATION 04/14/2025 [facility] DATE CREATED AUTHOR AUTHOR'S ORGANIZ ATION 04/14/2025 [facility] Care Teams (unrecognized sec tion and content) Personnel Name: SANDRO CHIN MD Address: [address] [place] [address] Telecom: Team Status: Active Member Role Status Dates Sandro Chin MD Primary Care Provider Active Team Status: Active Member Role Status Dates Sandro Chin MD Primary Care Provider Active Start: December 25, 2024 Sandro Chin MD Attending Provider Active St art: December 25, 2024 Team Status: Active Member Role Status Dates Sandro Chin MD Primary Care Provider Active Start: February 01, 2025 Roz Dodson Ly , DO Attending Provider Active St art: February 01, 2025 Roz L Ly , DO Other Provider Active Start: February 01, 2025 Team Status: Active Member Role Status Dates Isaías Jordan II, DO Attending Provider Active Start: March 17, 2025 [...] Provider Active Start: March 21, 2025 Sandro Chni MD Primary Care Provider Active Start: March [...] Dates NON STAFF Primary Care Provider Active Dissolver Operator Relationship Specialty Start Date End Date Sandro Chin MD [address] [place] [address] PCP - General Family Medicine 03/19/23 Dissolver Operator Relationship Specialty Start Date End Date Sandro Chin MD [address] [place] [address] PCP - General Family Medicine 03/19/23 Team [...] End: September 06, 2024 Isaías Jordan II, Attending Provider Active Start: September 06, 2024 [...] December 14, 2024 End: December 14, 2024 Dissolver Operator Relationship Specialty Start Date End Date Sandro Chin MD [address] [place] [phone] PCP - General Family Medicine 12/14/24 Dissolver Operator Relationship Specialty Start Date End Date Sandro Chin MD [address] [place] [id number] PCP - General Family Medicine 12/14/24 Team [...] December 20, 2024 End: December 20, 2024 Dissolver Operator Relationship Specialty Start Date End Date Sandro Chin MD [address] [facility] [place] [address] PCP - General Family Medicine 12/14/24 Team [...] may be documented in an alternate section No data available for this section REASON FOR VISIT (unrecogniz ed section [...] Otolaryngology Diagnoses Other seasonal allergic rhinitis Procedures [place] UNLISTED EVALUATION AND MANAGEMENT SERVICE [facility] [address] [place] [address] Phone: tel: fax: Constantino Martinez MD [address] [place] [address] Phone: tel: fax: Referral ID Status Reason Start Date Expiration Date Visits Re quested Visits Authorized [id number] Closed 12/14/2024 06/12/2025 1 1 FOR RECORDS [...] BE BASED ON THE PRIMARY CLINICAL RECORDS. [facility] [employer] [facility]. provides no warranty or guarantee of the accuracy or completeness of information in this document.
== END 2025-04-15 13:32 | disposition home or self-care (01) ==
LOC: PST 13:32
PROVIDERS: PCP Family Medicine; Visit Provider Surgery
DX: Z01.810 Encounter for preprocedural cardiovascular examination (principal); C18.9 Malignant neoplasm of colon, unspecified; R91.8 Other nonspecific abnormal finding of lung field; Z45.2 Encounter for adjustment and management of vascular access device
CPT/HCPCS: 93005

== ENCOUNTER 2025-04-20 09:14 | Day surgery (SDC) | payer BC, SELFPAY ==
[2025-04-15 14:04] VITALS: BP 113/72; PULSE 47; TEMP 36.9; O2SAT 98; BMI 27.4
[2025-04-20] VITALS (12 sets, daily range): BP systolic 112–147; BP diastolic 73–98; PULSE 49–83; TEMP 36.3–36.4; O2SAT 96–100; BMI 27.4
--- NOTE | 2025-04-20 | OP_ITS ---
OPERATION DATE: 04/20/2025 PREOPERATIVE DIAGNOSIS: Recurrent colon cancer, need for secure central access. POSTOPERATIVE DIAGNOSIS: Recurrent colon cancer, need for secure central access. PROCEDURE: Right subclavian Infusaport insertion, after attempted right external jugular and left subclavian Infusaport insertion. SURGEON: Asher Davila M.D. ANESTHESIA: General as well as local with 0.5% Marcaine plain. ESTIMATED BLOOD LOSS: Less than 20 mL. INDICATIONS AND CONSENT: Patient is a 60-year-old female, history of recurrent colon cancer, requires secure central access via port for chemotherapy. She previously had a left subclavian port several years ago, was removed one year ago. Plan is to proceed with right external jugular port. Indications, risks, benefits, alternatives of proceeding with port insertion were explained extensively to the patient, including the risks of bleeding, infection, scarring, pain, pneumothorax, blood clot, catheter fracture, anesthetic complications, need for further surgery or port removal. All of her questions were answered. Informed consent was obtained. PROCEDURE: Patient brought to the operating room, placed in the supine position. General anesthesia was induced. She was placed in the Trendelenburg position. She was prepped and draped in the usual sterile fashion. She did appear to have an adequate sized external jugular with some distal branching on evaluation percutaneously; therefore, an incision was made in the area of the neck crease perpendicular to the long axis of the external jugular. It was carried down through the platysma. There was noted to be a very small external jugular that would not support the catheter insertion. Therefore, we elected to proceed with the subclavian approach. Because of the angle, we did try a sterile Seldinger technique on the left. We were able to get into the vein easily multiple times with good blood return; however, the catheter would not thread, despite multiple maneuvers and fluoroscopic guidance, most likely due to scarring. Therefore, we proceeded with a right subclavian Seldinger technique with good venous access. We were able to get the wire to thread down into the right heart. A stab incision was made over the wire, followed by the dilator. The dilator and peel away sheath were then placed over the wire. The dilator and wire were then removed. The catheter was then inserted. It was tight with some kinking of the sheath under the clavicle. Because of this, we did place the Guidewire back in the catheter, as we were advancing it through the peel away sheath, and this allowed enough stiffness in order to advance the catheter into the distal superior vena cava. The peel away sheath was removed, followed by the wire. The catheter aspirated blood easily and was flushed with saline. It was adjusted so it was in good position in the distal SVC, at the level of the aaron. Attention was then turned to the chest wall, where an incision was made in the area of the skin crease, below the clavicle, to the right of the sternum to create the pocket. Subcutaneous pocket was then created using electrocautery above the pectoralis fascia. The catheter was then tunneled from the insertion site to the pocket. Fluoroscopy was checked once again. The catheter was still noted to be in good position. It was then trimmed and attached to the pre-flushed port. Port aspirated blood easily. We then flushed with heparinized saline. Patient was then placed in reverse Trendelenburg position. Fluoroscopy was check once again. There was no kinking or twisting of the catheter along its course. It was noted to be in good position. It was secured to the pectoralis fascia using 2-0 Prolene suture. Incisions were then closed in layers with interrupted 3-0 subcuticular Monocryl suture and 4-0 subcuticular Monocryl suture and skin glue. Sterile dressings were applied. Sponge and needle counts were correct x2 per nursing personnel. Patient tolerated the procedure well, was sent to recovery room in good condition. CC: Hilda Aviles
--- OUTSIDE RECORDS SUMMARY | 2025-04-20 09:18 | XMS_ITS | Clinical Summary ---
Author Organization [facility] Address [id number] [place] [address] Care Team Providers Care Inventory Control Assistant Name Role Phone Melissa Worthy MD Primary Care Provider [phone] Allergies Active Allergy Reactions Criticality Noted Date [...] capsule PATIENT REPORTS NEEDED 3 Active omega 7-vhf-tlv-fish oil (Fish OiL) 300-1,000 mg capsule Take by mouth. Activ e glucosamine-cho ndroitin 500-400 mg tablet Take 1 tablet by mouth 3 (three) times a day. Active Active Problems Problem Noted Date Diagnosed Date Female pelvic congestion syndrome 02/20/2023 Glaucoma of both eyes 05/15/2022 bleeding 05/15/2022 Encounters Date Type Department Care Team Description 04/11/2025 Telephone [facility] [address] [place] [address] Yoselin Lo RMA from Last 3 Months Family History Medical History Relation Name Comments [...] Date Last Done Comments Depression Screening 1978 DTaP,Tdap and Td Vaccines (1 - Tdap) 1985 Pap Smear 1987 Zoster (Shingles) Vaccine (1 of 2) 2016 COVID-19 Vaccine (2024-2 6 season) 2025 05/16/2022, 04/27/2021, 08/02/2020, Additional history exists Influenza [...] to Health Maintenance Insurance ANTHEM Care Teams Inventory Control Assistant Relationship Specialty Start Date End Date Melissa Worthy MD [address] [place] [address] PCP - General Family Medicine 03/19/23
--- OUTSIDE RECORDS SUMMARY | 2025-04-20 09:19 | XMS_ITS | Encounter Summary ---
Author Organization [employer] Address [facility] [id number] [address] [place] [address] Care Team Providers Care Senior Research Manager Name Role Phone Melissa Worthy MD Primary Care Provider [phone] Encounter Details Date Type Department Care Team (Late st Contact Info) Description 04/23/2023 Telephone [facility] [address] [place] [phone] Yoselin Lo RMA Social History Tobacco Use [...] to update her H&P prior to her [facility] surgery with Dr. Jade 05/07/23. * [...] on filedocumented in this encounter Care Teams Senior Research Manager Relationship Specialty Start Date End Date Melissa Worthy MD [address] [place] [address] PCP - General Family Medicine 03/19/23 documented as of this encounter
--- OUTSIDE RECORDS SUMMARY | 2025-04-20 09:19 | XMS_ITS | Encounter Summary ---
Author Organization [employer] Address [id number] [address] [place] [address] Care Team Providers Care Enrichment Assistant Name Role Phone Melissa Worthy MD Primary Care Provider [phone] Encounter Details Date Type Department Care Team (Late st Contact Info) Description 04/11/2025 Telephone [facility] [address] [place] [address] Yoselin Lo RMA Social History Tobacco Use [...] * Telephone Encounter - DANIELLE Bennett - 04/11/2025 10:31 AM EDT Shasta called into the office to ask if Dr. Jade could put in a port for her. She is having a lungbiopsy on 04/12/25. She would like it done at [facility] because that's where she works and it would be more cost effective to have it done there. I told her I would inform Dr. Jade and I would call her with his reply. She said OK . * Telephone Encounter - DANIELLE Bennett - 04/11/2025 10:31 AM EDT Images from the original note were not included. 04/11/25 The patient was called & told Dr. Jade does not go to [facility] any longer. Patient stated she will look for another alternative. Patients states [facility] is at her tier 3 - her out of pocket expense would be quite large. DANIELLE Bennett / claim processing specialist RE: [facility] Received: Today DO Yoselin Chang RMA I am not going to [place] any longer. If she wants it done it will have to be done at [facility] by me unless she wants to go elsewhere. Sorry tell her. Dr. Martino Previous Messages ----- Message ----- From: DANIELLE Bennett Sent: 04/11/2025 10:29 AM EDT To: Asher Jade DO; DANIELLE Dunn Subject: [facility] Shasta called into the office today to say that she needs a port put in She is having a lung biopsy done today - 04/11/25. She works at the [facility] and with her insurance - it would be better to have it done at [facility] I know we haven't done [facility] in a while. Would this be something you would consider? I could call [facility] and ask if they could open up a block for you I would schedule an office visit for her H & P Please advise - Elena palencia documented in this encounter Plan of Treatment Not on file documented as of this encounter Visit Diagnoses Not on filedocumented in this encounter Care Teams Enrichment Assistant Relationship Specialty Start Date End Date Melissa Worthy MD [address] [place] [address] PCP - General Family Medicine 03/19/23 documented as of this encounter
--- OUTSIDE RECORDS SUMMARY | 2025-04-20 09:19 | XMS_ITS | Encounter Summary ---
Author Organization [facility] Address [address] [place] [address] Care Team Providers Care Shrimp Trawler Name Role Phone Melissa Worthy MD Primary Care Provider [phone] Encounter Details Date Type Department Care Team (Late st Contact Info) Description 03/30/2025 External Result Encounter [facility] External Department Unsolicited Timmy Jordan, DO [address] [place] [address] Social History Tobacco Use Types Packs/Day Years [...] as of this encounter Plan of Treatment Not on file documented as of this encounter Procedures Procedure Name Priority Date/Time Associated Diagnosis Comments PET/CT SKULL BASE TO MID THIGH 03/30/2025 11:34 AM EDT documented in this encounter Results * PET/CT skull base to mid thigh (03/30/2025 11:34 AM EDT) Anatomical Region Laterality Modality Body Computed Tomogra phy 03/30/2025 11:3 4 AM EDT Impressions 03/30/2025 11:46 AM EDT 1. Bilateral pulmonary nodules largest appear FDG [...] Jr., D.O. 03/30/2025 11:44 AM Dictation Location: [facility]--22 Transcribed By: [facility] 03/30/25 1144 Dictated By: Andres Wallis Jr, DO 03/30/25 1134 Signed By: <Electronically signed by Andres Wallis Jr, DO in OV> 03/30/25 1144 Narrative 03/30/2025 11:46 AM EDT [facility] [place] [address] Nuclear Medicine Report Signed Patient: Marysol Jacobson MR#: [id number] 22 : 1965 Acct:[id number] Age/Sex: 59 / F ADM Date: 03/30/25 Loc: Room: Type: [facility] RCR Attending Dr: Carlyn Turner APRN Copies to: Andres Wallis Jr, DO Mary K Demboske, APRN Timothy J Adamowicz, II, DO Ordering Provider: Timmy Jordan II, DO Date of Service: 03/30/25 [...] fluid. PET/PET tumor init tx strat sb-mt Procedure Note Andres Wallis Jr., - 03/30/2025 [facility] Main [place] [address] [place] [address] Nuclear Medicine Report Signed Patient: Marysol JacobsonMR#: [id number] 22 : 1965Acct:[id number] Age/Sex: 59 / FADM Date: 03/30/25 Loc: Room:Type: [facility] Attending Dr: Carlyn Turner APRN Copies to: Andres Wallis Jr, DO Mary K Demboske, APRN Timothy J Adamowicz, II, DO Ordering Provider: Timmy Jordan II, DO Date of Service: 03/30/25 PET/PET tumor init tx strat sb-mt: C18.9 -Malignant neoplasm of colon, unspecified PET/CT FUSION IMAGING CLINICAL INFORMATION: Colon cancer with lung nodules. COMPARISON : Outside CT chest, abdomen and pelvis 03/17/2025 TECHNIQUE: Noncontrasted CT scan from the base of the skull to the upperthigh followed by PET imaging. Multiplanar PET/CT fusion images. Blood Glucose : 100 mg/dL The F-18 FDG 10.98mCi. FINDINGS: Neck: No focal abnormal activity. Chest:Bilateral pulmonary nodules, SUV max 4.4. Most of these are toosmall for PET CT characterization. No abnormal activity is seen involving the mediastinumor hilar regions. Abdomen/pelvis: Focal area of abnormal activity is seen involving theright lobe of the liver along the dome, SUV max of 4.2. Abnormal activity is seen involving the cervix,SUV max of 4.6. Abnormal activity is seen involving the anorectal region. SUV max of 4.8. Soft tissue/bones: No abnormal activity. CT findings: No pneumothorax. No pericardial or pleural effusions. Nofree air or free fluid. PET/PET tumor init tx strat sb-mt IMPRESSION: 1. Bilateral pulmonary nodules largest appear FDG avid suspicious formetastatic disease. 2. Abnormal activity is seen involving the cervix suspicious formalignancy. Correlation with physical exam is suggested. 3. Abnormal activity is seen involving the anorectal junction possiblyrelating to residual malignancy. Correlation with direct visualization is suggested. 4. Focal area of abnormal activity is seen involving the right lobe theliver along the dome. This may relate to the abnormality seen by CT. Complete evaluation withmultiphase liver CT or MRI is recommended. Impression dictated by: Andres Wallis Jr., D.OJennifer 03/30/2025 11:44 AM Dictation Location: [place] [address] Transcribed By: [facility] 03/30/25 1144 Dictated By: Andres Wallis Jr, DO 03/30/25 1134 Signed By: <Electronically signed by Andres Wallis Jr, DO inOV> 03/30/25 1144 Timmy Jordan DO IMG CT PROCEDURES Final R esult documented in this encounter Visit Diagnoses Not on filedocumented in this encounter Care Teams Shrimp Trawler Relationship Specialty Start Date End Date Melissa Worthy MD [address] [place] [phone] PCP - General Family Medicine 12/14/24 documented as of this encounter
--- OUTSIDE RECORDS SUMMARY | 2025-04-20 09:19 | XMS_ITS | Clinical Summary ---
Author Organization [facility] Address [address] [place] [address] Care Team Providers Care Security Control Center Operator Name Role Phone Melissa Worthy MD Primary Care Provider [phone] Allergies Active Allergy Reactions Criticality Noted Date [...] mouth at bedtime 90 tablet 12/21/2024 Active Active Problems Problem Noted Date Diagnosed Date Abnormal LFTs 12/20/2024 Chemotherapy-induced peripheral neuropathy 12/20 Colon cancer 12/20/2024 Encounter for chemotherapy management 12/20/2024 Osteoarthritis 12/20/2024 Pharyngitis, chronic 12/20/2024 Salivary gland hypertrophy 12/20/2024 Situational anxiety 12/20/2024 Female pelvic congestion syndrome 02/20/2023 Glaucoma of both eyes 05/15/2022 bleeding ([facility]) 05/15/2022 Encounters Date Type Department Care Team Description 03/30/2025 External Result Encounter [facility] External Department Unsolicited Timmy Jordan, DO 03/30/2025 External Result Encounter [facility] External Department Unsolicited Carlyn Turner NP from Last 3 Months Social History Tobacco [...] Influenza Vaccine (#1) 2025 05/18/2024 Colonoscopy 05/07/2033 05/07/2023, 03/13/2022 Colorectal Cancer Screening 05/07/2033 Procedures Procedure Name Priority Date/Time Associated Diagnosis Comments PET/CT SKULL BASE TO MID THIGH 03/30/2025 11:34 AM EDT GLUCOSE POCT GLUCOMETERS Routine 03/30/2025 8:38 AM EDT from Last 3 Months Results * PET/CT skull base to mid [...] Jr., D.O. 03/30/2025 11:44 AM Dictation Location: [place] [address] Transcribed By: [facility] 03/30/25 1144 Dictated By: Andres Wallis Jr, DO 03/30/25 1134 Signed By: <Electronically signed by Andres Wallis Jr, DO in OV> 03/30/25 1144 Narrative 03/30/2025 11:46 AM EDT [facility] Main [place] [address] [place] [address] Nuclear Medicine Report Signed Patient: Marysol Jacobson MR#: [id number] 22 : 1965 Acct:[id number] Age/Sex: 59 / F ADM Date: 03/30/25 Loc: Room: Type: [facility] RCR Attending Dr: Carlyn Turner APRN Copies [...] Procedure Note Andres Wallis Jr., - 03/30/2025 [facility] [place] [address] Nuclear Medicine Report Signed Patient: Marysol JacobsonMR#: [id number] 22 : 1965Acct:[id number] Age/Sex: 59 / FADM Date: 03/30/25 Loc: Room:Type: [facility] RCR Attending Dr: Carlyn Turner CLAIM EXAMINER Copies to: Andres Wallis Jr, DO Mary [...] Jr., D.O. 03/30/2025 11:44 AM Dictation Location: [place] [address] Transcribed By: [facility] 03/30/25 1144 Dictated By: Andres Wallis Jr, DO 03/30/25 1134 Signed By: <Electronically signed by Andres Wallis Jr, DO inOV> 03/30/25 1144 Timmy Jordan DO IMG CT PROCEDURES Final R esult * GLUCOSE POCT GLUCOMETERS (03/30/2025 8:38 AM EDT) [facility] Signature GLUCOSE POC GLUCOMETERS 100 mg/dL 03/30/2025 9:07 AM EDT [facility] Comment: Random Glucose Reference Range is dependent on time and content of last meal. Glucose of more than 200 mg/dL in a nonstressed, ambulatory subject supports the diagnosis of Diabetes Mellitus. Blood (Blood) 03/30/2025 8:3 8 AM EDT 03/30/2025 9:07 AM EDT us Carlyn Turner [employer] BLOOD ORDERABLES Final Re sult [facility] [address] [place] [address], from Last 3 Months Insurance [facility] Care Teams Security Control Center Operator Relationship Specialty Start Date End Date Melissa Worthy MD [address] [place] [phone] PCP - General Family Medicine 12/14/24
--- OUTSIDE RECORDS SUMMARY | 2025-04-20 09:28 | XMS_ITS | CCD ---
Author Organization [facility] Care Team Providers Care Plastics Seasoner Operator Name Role Phone DO Isaías Jordan II Attending Provider [phone] DO Clint Jean Baptiste Referring Provider MD Sandro Chin Primary Care Provider DO Isaías Jordan II Attending Provider [phone] NON STAFF Primary Care Provider DO Clint [...] Unavailable DO Clint Jean Baptiste Referring Provider [phone] MD Sandro Chin Primary Care Provider [phone] OLIVIA Turner Attending Provider DO Clint Jean Baptiste Referring Provider MD Sandro Chin Primary Care Provider OLIVIA Turner Attending Provider CLINT JEAN BAPTISTE Attending Unavailable SANDRO CHIN Referring Unavailable SANDRO CHIN Primary Care Unavailable CLINT JEAN BAPTISTE Attending Unavailable SANDRO CHIN Referring Unavailable SANDRO CHIN Primary Care Unavailable MSAHA RICHARDSON Attending Unavailable SANDRO CHIN Referring Unavailable SANDRO CHIN Primary Care Unavailable Sandro Chin MD Primary Care Provider Clint Jean Baptiste DO Referring Provider Sandro Chin MD Primary Care Provider Carlyn Turner APRN Attending Provider Sandro Chin MD Primary Care Provider CONSTANTINO MARTINEZ Attending Unavailable Sandro Chin MD Primary Care Provider Sandro Chin MD Attending Provider [phone] Roz Borrego DO Attending Provider Roz Borrego DO Other Provider Sandro Chin [...] Unavaila ble Clint Jean Baptiste Referring Unavailable Sanrdo Chin Primary Care Unavailable Isaías Jordan II Admitting Unavaila Clint Obando Attending Unavailable ENDER MOORE Referring Unavailable SANDRO CHIN Primary Care Unavailable ANTONIO MI Referring Unavailable SANDRO CHIN Primary Care Unavailable SANDRO CHIN Primary Care Physician Allergies Allergy Classification Reported Allergen(s) Allergy Type Date of Onset Reaction(s) Facility (19 sources) HYDROcodone; Translations: [Hydrocodone] Drug Allergy 2 Nausea And Vomiting, Nausea (finding) [facility] (1 source) Misc-Food; Translations: [Misc-Food] Food allergy (disorder) [facility] (10 sources) Codeine; Translations: [CODEINE] Drug [...] capsule capsule Take by mouth 01/19/2024 Active Bowman 2-Rrm-Clu-Fish Oil (7 sources) Start: 01-19-2024 take 300-1000 mg by mouth once daily Start: 01-19-2024 take 300-1000 mg by mouth once daily Bowman 7-Pfr-Tvn-Fish Oil (Fish Oil) 300-1,000 mg capsule Active 1 CAP PO Daily January 19, 2024 12:00am Complies with drug therapy Start: 01-19-2024 take 300-1000 mg by mouth once daily Bowman 7-Eeg-Dha-Fish Oil (Fish Oil) 300-1,000 mg capsule Active 1 CAP PO Daily January 18, 2024 11:00pm Start: 01-19-2024 take 300-1000 mg by mouth once daily Bowman 3-Irl-Iqp-Fish Oil (Fish Oil) 300-1,000 mg capsule Active [...] ORAL) Take by mouth daily. Active omega 7-eua-tca-fish oil (Fi sh OiL) 300-1,000 mg capsule [...] 11:38am Start: 08-19-2022 take 1 tablet by [place] once daily Carica Papaya (Papaya Enzyme) Tablet [...] 01, 2024 12:06pm administer with a meal Zybov-Ig-2-Dha-Ep w-Sxlojou-Icr (11 sources) Start: 05-02-2022 End: 05-03-2022 take 3 capsules by mouth once daily Zqcpp-Qu-3-Dha-Ep g-Fgsfvkb-Ipz Discontinued 1 CAP PO Daily May 02, 2022 12:00am May 03, 2022 2:39pm Start: 05-02-2022 End: 05-03-2022 take 3 capsules by mouth once daily Yrryb-Na-8-Qlb-Zzq-Bfauwkx-Ast Discontin ued 1 CAP PO Daily May 01, 2022 11:00pm May 03, 2022 1:39pm Qzifk-Lx-4-Kcc-Xds-Ntawdxk-A st 1,104-636-48-80 mg Capsule (6 sources) Start: 05-02-2022 End: 05-03-2022 Gjbdp-Ji-4-Rmf-Gai-Uuduapd-A st 1,586-381-64-80 mg Capsule Discontinued 1 CAP PO Daily May 02, 2022 12:00am May 03, 2022 2:39pm Start: 05-02-2022 End: 05-03-2022 Baydo-Fn-0-Syf-Gik-Bpkapta-A st 1,389-446-76-80 mg Capsule Discontinued 1 CAP PO Daily [...] 24 tablet 03/19/2023 03/02/2024 Discontinued Vit C-E-Zinc Qp-Rprm-Mkn-Zeax (Icaps Areds2) 250 mg-200 unit -12.5 mg-1 mg Capsule (10 sources) Start: 06-25-2023 End: 11-17-2023 take 2 capsules by mouth once daily Vit C-E-Zinc Wg-Tzpn-Nhr-Zeax (Icaps Areds2) 250 mg-200 unit -12.5 mg-1 mg Capsule Discontinued 2 CAP PO Daily June 25, 2023 12:00am November 17, 2023 8:48am Start: 06-25-2023 End: 11-17-2023 take 2 capsules by mouth once daily Vit C-E-Zinc Nz-Nhmo-Dty-Zeax (Icaps Areds2) 250 mg-200 unit -12.5 mg-1 mg Capsule Discontinued 2 CAP PO Daily June 25, 2023 1:00am November 17, 2023 9:48am Start: 06-25-2023 take 2 capsules by m outh once daily Vit C-E-Zinc Wr-Olml-Igo-Zeax (Icaps Areds2) 250 mg-200 unit -12.5 mg-1 mg Capsule Active 2 CAP PO Daily June 25, 2023 1:00am Start: 06-25-2023 take 2 capsules by m outh once daily Vit C-E-Zinc Vu-Mlrz-Vff-Zeax (Icaps Areds2) 250 mg-200 unit -12.5 mg-1 [...] 01-09-2022 Episodic Other aftercare (1 source) Other jail (current) drug therapy; Translations: [OTH [facility] CURRENT DRUG THERAPY] Onset: 04-22-2022 Episodic Other [...] signed up for this yet, please contact [employer] at [phone] to get signed up today. Language Information Language assistance services are available as needed. Normal [facility] CT NEEDLE BIOPSY LUNG PERCUT ANEOUS W IMAGING GUIDANCEon 04-11-2025 CT NEEDLE BIOPSY LUNG PERCUTANEOUS W IMAGING GUIDANCE IMPRESSION: 1. Successful core biopsy of right upper lobe anterior pulmonary nodule. 2. Blood patch was injected after biopsy for pneumothorax prevention. HISTORY: MARYSOL GARDNER is a Female of 60 years [...] Ender Moore MD 04/12/25 Final result Normal [facility] Surgical Specimenon 04-11-20 Surgical Specimen [facility] [address] [place] [address] FINAL SURGICAL PATHOLOGY REPORT Patient Name: MARYSOL GARDNER Accession No: [id number] Age Sex: 1965 Location: DIS Account No: [id number] Collected: 04/11/2025 [facility] Rec No: [id number] Received: 04/12/2025 Attend Phys: ENDER MOORE Completed: [...] where the core is present. PSW/NAN CPT: 01770 X1 73854 X2 58050 X1 J MIC DONNELLY M.D. 04/14/2025 Electronically signed out by Page 1 of 1 Abnormal [facility] Comment on above: Performed By: #### S UR #### [facility] [address] [place] [address] XR CHEST (2 VW)on 04-11-2025 XR CHEST [...] Ender Moore MD 04/11/25 Final result Normal [facility] GLUCOSE POCT GLUCOMETERSon 0 03-30-2025 Glucose [Mass/Vol] 100 mg/dL [facility] Comment on above: Random Glucose Refer ence Range is dependent on time and content of last meal. Glucose of more than 200 mg/dL in a nonstressed, ambulatory subject supports the diagnosis of Diabetes Mellitus. [facility] Glucose Poct Glucometerson 0 03-30-2025 Glucose [Mass/Vol] 100 mg/dL Normal [facility] Comment on above: Result Comment: [place] Glucose Reference Range is dependent on time and content of last meal. Glucose of more than 200 mg/dL in a nonstressed, ambulatory subject supports the diagnosis of Diabetes Mellitus. PERFORMED BY: [place] [id number] PATHOLOGIST LEAD WORKER OF HOUSEKEEPING AND LAUNDRY CECY RODRIGUEZ M.D. Performed By: #### G LULS #### Point of Care testing , PET tumor init tx strat sb-m ton 03-30-2025 PET tumor init tx strat sb-mt [facility] [address] [place] [id number] Nuclear Medicine Report Signed Patient: Marysol Gardner MR#: [id number] 22 : 1965 Acct:[id number] Age/Sex: 59 / F ADM Date: 03/30/25 Loc: Room: Type: [facility] RCR Attending Dr: Carlyn Turner RN CLINICIAN Copies to: Andres Wallis Jr, DO Mary [...] Jr., D.O. 03/30/2025 11:44 AM Dictation Location: [place] [address] Transcribed By: [facility] 03/30/25 1144 Dictated By: Andres Wallis Jr, DO 03/30/25 1134 Signed By: 03/30/25 1144 Normal [facility] Basophils Auto (Bld) [#/Vol] Ordered By: Isaías Jordan on 03-17-2025 Basophils (Bld) [#/Vol] 0.0 10 3/uL 0.0-0.[address] [facility] Basophils/100 WBC Auto (Bld) Ordered By: Isaías Jordan on 03-17-2025 Basophils/100 WBC (Bld) 0.6 % 0.2-2.[address] [facility] Eosinophils/100 WBC Auto (Bl d)Ordered By: Isaías Jordan on 03-17-2025 Eosinophils/100 WBC (Bld) 2.1 % 0.9-7.[address] [facility] Erythrocyte distribution wid th Auto (RBC) [Ratio]Ordered By: Isaías Jordan on 03-17-2025 Erythrocyte distribution width (RBC) [Ratio] 13.2 % 11.0-15.[address] [facility] Globulin Calc (S) [Mass/Vol] Ordered By: Isaías Jordan on 03-17-2025 Globulin (S) [Mass/Vol] 3.7 g/dL [facility] Glomerular filtration rate ( GFR) estimation in non- AmericanOrdered By: Isaías Jordan on 03-17-2025 GFR/1.73 sq M.predicted among non-blacks MDRD (S/P/Bld) [Vol rate/Area] mL/min/{1.73_m2} >=60 mL/min/1.7 3m [address] [facility] Hematocrit Auto (Bld) [Volum e fraction]Ordered By: Isaías Jordan on 03-17-2025 Hematocrit (Bld) [Volume fraction] 41.6 % 36.0-48.[address] [facility] Hemoglobin [Mass/volume] in BloodOrdered By: Isaías Jordan on 03-17-2025 Hemoglobin (Bld) [Mass/Vol] 13.9 g/dL 12.0-16.[address] [facility] Laboratory - Chemistry and C hemistry - challengeOrdered By: Isaías Jordan on 03-17-2025 Albumin [Mass/Vol] 3.8 g/dL 3.4-5.0 [facility] ALP [Catalytic activity/Vol] 81 U/L 46-[address] [facility] ALT [Catalytic activity/Vol] 24 U/L 14-[address] [facility] AST [Catalytic activity/Vol] 22 U/L 15-[address] [facility] Bilirubin [Mass/Vol] 0.5 mg/dL 0.2-1.0 [facility] Calcium [Mass/Vol] 9.1 mg/dL 8.5-10.1 [facility] Chloride [Moles/Vol] 105 mmol/L 98-107 [facility] CO2 [Moles/Vol] 27.3 mmol/L 21.0-32.0 [facility] Creatinine [Mass/Vol] 0.57 mg/dL 0.55-1.02 [facility] GFR/1.73 sq M.predicted MDRD (S/P/Bld) [Vol rate/Area] mL/min/{1.73_m2} >=60 mL/min/1.7 3m [address] [facility] Glucose [Mass/Vol] 100 mg/dL 74-106 [facility] Potassium [Moles/Vol] 3.9 mmol/L 3.5-5.1 [facility] Protein [Mass/Vol] 7.5 g/dL 6.4-8.2 [facility] Sodium [Moles/Vol] 140 mmol/L 136-145 [facility] Urea nitrogen [Mass/Vol] 13.0 mg/dL 7.0-18.[address] [facility] Urea nitrogen/Creatinine [Mass ratio] 22.8 mg/mg [facility] Laboratory - Hematology and Cell countsOrdered By: Isaías Jordan on 03-17-2025 Immature granulocytes/100 WBC (Bld) 0.2 % 0.0-0.[address] [facility] Leukocytes [#/volume] correc audrey for nucleated erythrocytes in Blood by Automated counOrdered By: Isaías Jordan on 03-17-2025 WBC corrected for nucl RBC Auto (Bld) [#/Vol] 4.9 10 3/uL 4.0-11.[address] [facility] Lymphocytes Auto (Bld) [#/Vo l]Ordered By: Isaías Jordan on 03-17-2025 Lymphocytes (Bld) [#/Vol] 1.5 10 3/uL 1.2-3.[address] [facility] Lymphocytes/100 WBC Auto (Bl d)Ordered By: Isaías Jordan on 03-17-2025 Lymphocytes/100 WBC (Bld) 31.1 % 20.5-60.[address] [facility] MCH Auto (RBC) [Entitic mass ]Ordered By: Isaías Jordan on 03-17-2025 MCH (RBC) [Entitic mass] 31.9 pg 26.7-34.[address] [facility] MCHC Auto (RBC) [Mass/Vol]Or dered By: Isaías Jordan on 03-17-2025 MCHC (RBC) [Mass/Vol] 33.4 g/dL 29.9-35.2 [facility] MCV Auto (RBC) [Entitic vol] Ordered By: Isaías Jordan on 03-17-2025 MCV (RBC) [Entitic vol] 95.4 fL 81.0-99.[address] [facility] Monocytes Auto (Bld) [#/Vol] Ordered By: Isaías Jordan on 03-17-2025 Monocytes (Bld) [#/Vol] 0.5 10 3/uL 0.3-0.[address] [facility] Monocytes/100 WBC Auto (Bld) Ordered By: Isaías Jordan on 03-17-2025 Monocytes/100 WBC (Bld) 9.9 % 1.7-12.[address] [facility] Neutrophils Auto (Bld) [#/Vo l]Ordered By: Isaías Jordan on 03-17-2025 Neutrophils (Bld) [#/Vol] 2.7 10 3/uL 1.4-6.[address] [facility] Neutrophils/100 WBC Auto (Bl d)Ordered By: Isaías Jordan on 03-17-2025 Neutrophils/100 WBC (Bld) 56.1 % 43.0-75.[address] [facility] No Panel InformationOrdered By: Isaías Jordan on 03-17-2025 Eosinophils # (Auto) 0.1 10 3/uL 0.0-0.7 [facility] Immature Granulocyte # (Auto) 0.01 10 3/uL 0.00-0.[address] [facility] Platelet mean volume Auto (B ld) [Entitic vol]Ordered By: Isaías Jordan on 03-17-2025 Platelet mean volume (Bld) [Entitic vol] 10.4 fL 9.5-13.[address] [facility] Platelets Auto (Bld) [#/Vol] Ordered By: Isaías Jordan on 03-17-2025 Platelets (Bld) [#/Vol] 206 10 3/uL 150-[address] [facility] RBC Auto (Bld) [#/Vol]Ordere d By: Isaías Jordan on 03-17-2025 RBC (Bld) [#/Vol] 4.36 10 6/uL 4.20-5.40 [facility] Serum or plasma albumin/glob ulin mass ratioOrdered By: Isaías Jordan on 03-17-2025 Albumin/Globulin [Mass ratio] 1.0 {ratio} [facility] Serum or plasma anion gap de terminationOrdered By: Isaías Jordan on 03-17-2025 Anion gap [Moles/Vol] 11.6 mmol/L [facility] Pathology Request for Lab Co rpon 02-01-2025 Pathology Request for Lab [place] Normal [facility] Comment on above: Order Comment: GI SP ECIMEN Result Comment: See report. Scanned copy available in EMR. PERFORMED BY: [place] [id number] PATHOLOGIST LEAD WORKER OF HOUSEKEEPING [employer] LAUNDR[employer] CECY RODRIGUEZ M.D. Performed By: #### P ATH TO [facility] #### [address] Basophils Auto (Bld) [#/Vol] Ordered By: Sandro Chin on 12-25-2024 Basophils (Bld) [#/Vol] 0.0 10 3/uL 0.0-0.[address] [facility] Basophils/100 WBC Auto (Bld) Ordered By: Sandro Chin on 12-25-2024 Basophils/100 WBC (Bld) 0.8 % 0.2-2.[address] [facility] Cholesterol in LDL Calc [Mas s/Vol]Ordered By: Sandro Chin on 12-25-2024 Cholesterol in LDL [Mass/Vol] 157.0 mg/dL [facility] Comment on above: <100 mg/dl [id number] 0-129 mg/dl NEAR OR ABOVE [id number] mg/dl BORDERLINE [id number] mg/dl HIGH>190 mg/dl VERY HIGH Cholesterol in VLDL Calc [Ma ss/Vol]Ordered By: Sandro Chin on 12-25-2024 Cholesterol in VLDL [Mass/Vol] 14.0 mg/dL [facility] Eosinophils/100 WBC Auto (Bl d)Ordered By: Sandro Chin on 12-25-2024 Eosinophils/100 WBC (Bld) 1.5 % 0.9-7.[address] [facility] Erythrocyte distribution wid th Auto (RBC) [Ratio]Ordered By: Sandro Chin on 12-25-2024 Erythrocyte distribution width (RBC) [Ratio] 13.4 % 11.0-15.[address] [facility] Estimated glomerular filtrat ion rate (GFR) non- AmericanOrdered By: Sandro Chin on 12-25-2024 GFR/1.73 sq M.predicted among non-blacks MDRD (S/P/Bld) [Vol rate/Area] mL/min/{1.73_m2} >=60 mL/min/1.7 3m [address] [facility] Globulin Calc (S) [Mass/Vol] Ordered By: Sandro Chin on 12-25-2024 Globulin (S) [Mass/Vol] 3.5 g/dL [facility] Glucose mean value [Mass/vol ume] in Blood Estimated from glycated hemoglobinOrdered By: Sandro Chin on 12-25-2024 Average glucose Estimated from glycated hemoglobin (Bld) [Mass/Vol] 111 mg/dL [facility] Hematocrit Auto (Bld) [Volum e fraction]Ordered By: Sandro Chin on 12-25-2024 Hematocrit (Bld) [Volume fraction] 41.8 % 36.0-48.[address] [facility] Hemoglobin A1c percentageOrd ered By: Sandro Chin on 12-25-2024 HbA1c (Bld) [Mass fraction] 5.5 % 4.5-6.[address] [facility] Comment on above: ADA RECOMMENDED LIMI T 4.0 - 6.0ADA THERAPEUTIC TARGET < 7.0ACTION SUGGESTED> 7.0 Hemoglobin [Mass/volume] in BloodOrdered By: Sandro Chin on 12-25-2024 Hemoglobin (Bld) [Mass/Vol] 13.9 g/dL 12.0-16.[address] [facility] Laboratory - Chemistry and C hemistry - challengeOrdered By: Sandro Chin on 12-25-2024 Albumin [Mass/Vol] 4.0 g/dL 3.4-5.0 [facility] ALP [Catalytic activity/Vol] 76 U/L 46-[address] [facility] ALT [Catalytic activity/Vol] 24 U/L 14-[address] [facility] AST [Catalytic activity/Vol] 14 U/L Low 15-[address] [facility] Bilirubin [Mass/Vol] 0.6 mg/dL 0.2-1.0 [facility] Calcium [Mass/Vol] 9.6 mg/dL 8.5-10.1 [facility] Chloride [Moles/Vol] 106 mmol/L 98-107 [facility] Cholesterol [Mass/Vol] 219 mg/dL High <=200 [facility] Cholesterol in HDL [Mass/Vol] 48 mg/dL 40-[address] [facility] Comment on above: > or =60 mg/dl - LOW CARDIOVASCULAR RISK<40 mg/dl - HIGH CARDIOVASCULAR RISK CO2 [Moles/Vol] 28.6 mmol/L 21.0-32.0 [facility] Creatinine [Mass/Vol] 0.67 mg/dL 0.55-1.02 [facility] GFR/1.73 sq M.predicted MDRD (S/P/Bld) [Vol rate/Area] mL/min/{1.73_m2} >=60 mL/min/1.7 3m [address] [facility] Glucose [Mass/Vol] 88 mg/dL 74-106 [facility] Potassium [Moles/Vol] 3.9 mmol/L 3.5-5.1 [facility] Protein [Mass/Vol] 7.5 g/dL 6.4-8.2 [facility] Sodium [Moles/Vol] 144 mmol/L 136-145 [facility] Triglyceride [Mass/Vol] 70 mg/dL <=[address] [facility] Urea nitrogen [Mass/Vol] 19.0 mg/dL High 7.0-18.[address] [facility] Urea nitrogen/Creatinine [Mass ratio] 28.4 mg/mg [facility] Laboratory - Hematology and Cell countsOrdered By: Sandro Chin on 12-25-2024 Immature granulocytes/100 WBC (Bld) 0.2 % 0.0-0.[address] [facility] Leukocytes [#/volume] correc audrey for nucleated erythrocytes in Blood by Automated counOrdered By: Sandro Chin on 12-25-2024 WBC corrected for nucl RBC Auto (Bld) [#/Vol] 4.8 10 3/uL 4.0-11.[address] [facility] Lymphocytes Auto (Bld) [#/Vo l]Ordered By: Sandro Chin on 12-25-2024 Lymphocytes (Bld) [#/Vol] 1.7 10 3/uL 1.2-3.[address] [facility] Lymphocytes/100 WBC Auto (Bl d)Ordered By: Sandro Chin on 12-25-2024 Lymphocytes/100 WBC (Bld) 36.1 % 20.5-60.[address] [facility] MCH Auto (RBC) [Entitic mass ]Ordered By: Sandro Chin on 12-25-2024 MCH (RBC) [Entitic mass] 31.8 pg 26.7-34.[address] [facility] MCHC Auto (RBC) [Mass/Vol]Or dered By: Sandro Chin on 12-25-2024 MCHC (RBC) [Mass/Vol] 33.3 g/dL 29.9-35.2 [facility] MCV Auto (RBC) [Entitic vol] Ordered By: Sandro Chin on 12-25-2024 MCV (RBC) [Entitic vol] 95.7 fL 81.0-99.[address] [facility] Monocytes Auto (Bld) [#/Vol] Ordered By: Sandro Chin on 12-25-2024 Monocytes (Bld) [#/Vol] 0.3 10 3/uL 0.3-0.[address] [facility] Monocytes/100 WBC Auto (Bld) Ordered By: Sandro Chin on 12-25-2024 Monocytes/100 WBC (Bld) 6.8 % 1.7-12.[address] [facility] Neutrophils Auto (Bld) [#/Vo l]Ordered By: Sandro Chin on 12-25-2024 Neutrophils (Bld) [#/Vol] 2.6 10 3/uL 1.4-6.[address] [facility] Neutrophils/100 WBC Auto (Bl d)Ordered By: Sandro Chin on 12-25-2024 Neutrophils/100 WBC (Bld) 54.6 % 43.0-75.[address] [facility] No Panel InformationOrdered By: Sandro Chin on 12-25-2024 Eosinophils # (Auto) 0.1 10 3/uL 0.0-0.7 [facility] Immature Granulocyte # (Auto) 0.01 10 3/uL 0.00-0.[address] [facility] Platelet mean volume Auto (B ld) [Entitic vol]Ordered By: Sandro Chin on 12-25-2024 Platelet mean volume (Bld) [Entitic vol] 10.9 fL 9.5-13.[address] [facility] Platelets Auto (Bld) [#/Vol] Ordered By: Sandro Chin on 12-25-2024 Platelets (Bld) [#/Vol] 210 10 3/uL 150-[address] [facility] RBC Auto (Bld) [#/Vol]Ordere d By: Sandro Chin on 12-25-2024 RBC (Bld) [#/Vol] 4.37 10 6/uL 4.20-5.40 [facility] Serum or plasma albumin/glob ulin mass ratioOrdered By: Sandro Chin on 12-25-2024 Albumin/Globulin [Mass ratio] 1.1 {ratio} [facility] Serum or plasma anion gap de terminationOrdered By: Sandro Chin on 12-25-2024 Anion gap [Moles/Vol] 13.3 mmol/L [facility] Serum or plasma total choles terol/high density lipoprotein (HDL) cholesterol mass ratOrdered By: Sandro Chin on 12-25-2024 Cholesterol.total/Chol esterol in HDL [Mass ratio] 4.6 {ratio} [facility] Comment on above: 3.3 - 4.4 LOW RISK4. 4 - 7.1 AVERAGE RISK7.1 - 11.0 MODERATE RISK>11.0 HIGH RISK Chlamydia trachomatis rRNA [ Presence] in Cervix by MARIVEL with probe detectionOrdered By: Sandro Chin on 12-20-2024 C. trachomatis rRNA MARIVEL+probe Ql (Cvx) Negative Negative [facility] Neisseria gonorrhoeae rRNA [ Presence] in Cervix by MARIVEL with probe detectionOrdered By: Sandro Chin on 12-20-2024 N. gonorrhoeae rRNA MARIEVL+probe Ql (Cvx) Negative Negative [facility] Comment on above: Performed at: WB - [facility] [address] [id number] Director: Che Swenson MD, Phone: [phone] at: =G - [facility] [address] [id number] Director: Che Swenson MD, Phone: [phone] No Panel InformationOrdered By: Sandro Chin on 12-20-2024 IG Pap w/Ct-Ng & HPV (Off-Site) Note . [facility] Comment on above: TESTS RESULT FLAG UN ITS REF RANGE LAB Clinician Provided Cytology Information No. of containers..01 ThinPrep VialDIAGNOSIS: 01 NEGATIVE FOR INTRAEPITHELIAL LESION OR MALIGNANCY. CELLULAR CHANGES ASSOCIATED WITH ATROPHY AND INFLAMMATION ARE PRESENT.Specimen adequacy: 01 Satisfactory for evaluation. Endocervical component may not be distinguished in cases of atrophy.Performed by: 01 Nella Hines Oiler And Greaser ([employer]). 01Note: Note 01 The Pap smear is a screening test designed to aid in the detection of premalignant and malignant conditions of the uterine cervix. It is not a diagnostic procedure and should not be used as the sole means of detecting cervical cancer. Both false-positive and false-negative reports do occur.Test Methodology: Note 01 The [employer] Supervisor was unable to read this specimen. Therefore a manual review was performed.. 01 The HPV DNA reflex criteria were not met with this specimen result therefore, no HPV testing was performed. ------- FLAG LEGEND: L-Low Normal,H-High Normal,LL-Alert Low,HH-Alert High <-Panic Low,>-Panic High,A-Abnormal,AA-Critical Abnormal -----Performed at:[address] [id number] Che Swenson MD, Pap IG, CtNg, rfx HPV Aptima on 12-20-2024 PAP Chlamydia MARIVEL Negative Normal Negative [facility] Comment on above: Performed By: #### P AP #### [facility] , PAP Gonococcus Negative Normal Negative [facility] Comment on above: Result Comment: Perf ormed at: WB - [facility] [address] [id number] District Agent: Che Swenson MD, Phone: [phone] Performed at: =G - [facility] [address] [id number] District Agent: Che Swenson MD, Phone: [phone] PERFORMED BY: [address] [place] [address] PATHOLOGIST LEAD WORKER OF HOUSEKEEPING AND LAUNDRY CECY RODRIGUEZ M.D. Performed By: #### P AP #### [facility] , Pap IG Note Normal . [facility] Comment on above: Result Comment: TEST S RESULT FLAG UNITS REF RANGE LAB Clinician Provided Cytology Information No. of containers..01 ThinPrep Vial DIAGNOSIS: 01 NEGATIVE FOR INTRAEPITHELIAL LESION OR MALIGNANCY. CELLULAR CHANGES ASSOCIATED WITH ATROPHY AND INFLAMMATION ARE PRESENT. Specimen adequacy: 01 Satisfactory for evaluation. Endocervical component may not be distinguished in cases of atrophy. Performed by: 01 Nella Hines, Oiler And Greaser ([facility]) . 01 Note: Note 01 The Pap smear is a screening test designed to aid in the detection of premalignant and malignant conditions of the uterine cervix. It is not a diagnostic procedure and should not be used as the sole means of detecting cervical cancer. Both false-positive and false-negative reports do occur. Test Methodology: Note 01 The [employer] Supervisor was unable to read this specimen. Therefore a manual review was performed. . 01 The HPV DNA reflex criteria were not met with this specimen result therefore, no HPV testing was performed. FLAG LEGEND: L-Low Normal,H-High Normal,LL-Alert Low,HH-Alert High <-Panic Low,>-Panic High,A-Abnormal,AA-Critical Abnormal Performed at: 01 [facility] [address] [place] [address] Che Swenson MD, Performed By: #### P AP [id number] #### [facility] , Basophils Auto (Bld) [#/Vol] on 08-24-2024 Basophils (Bld) [#/Vol] Automated basophil count 0.0-0.1 [facility] Basophils/100 WBC Auto (Bld) on 08-24-2024 Basophils/100 WBC (Bld) Automated basophil % 0.2-2.[address] [facility] Eosinophils/100 WBC Auto (Bl d)on 08-24-2024 Eosinophils/100 WBC (Bld) Automated eosinophil % 0.9-7.[address] [facility] Erythrocyte distribution wid th Auto (RBC) [Ratio]on 08-24-2024 Erythrocyte distribution width (RBC) [Ratio] Erythrocyte distribution width [Ratio] by Automated count 11.0-15.[address] [facility] Estimated glomerular filtrat ion rate (GFR) non- Americanon 08-24-2024 GFR/1.73 sq M.predicted among non-blacks MDRD (S/P/Bld) [Vol rate/Area] Estimated glomerular filtration rate (GFR) non- >=60 mL/min/1.7 3m [address] [facility] Globulin Calc (S) [Mass/Vol] on 08-24-2024 Globulin (S) [Mass/Vol] Serum globulin measurement by calculation (mass/volume) [facility] Hematocrit Auto (Bld) [Volum e fraction]on 08-24-2024 Hematocrit (Bld) [Volume fraction] Hematocrit [Volume Fraction] of Blood by Automated count 36.0-48.[address] [facility] Hemoglobin [Mass/volume] in Bloodon 08-24-2024 Hemoglobin (Bld) [Mass/Vol] Hemoglobin [Mass/volume] in Blood 12.0-16.[address] [facility] Laboratory - Chemistry and C hemistry - challengeon 08-24-2024 Albumin [Mass/Vol] 3.9 g/dL 3.4-5.0 [facility] ALP [Catalytic activity/Vol] 75 U/L 46-[address] [facility] ALT [Catalytic activity/Vol] 20 U/L 14-[address] [facility] AST [Catalytic activity/Vol] 20 U/L 15-[address] [facility] Bilirubin [Mass/Vol] 0.6 mg/dL 0.2-1.0 [facility] Calcium [Mass/Vol] 9.3 mg/dL 8.5-10.1 [facility] Chloride [Moles/Vol] 103 mmol/L 98-107 [facility] CO2 [Moles/Vol] 27.7 mmol/L 21.0-32.0 [facility] Creatinine [Mass/Vol] 0.69 mg/dL 0.55-1.02 [facility] GFR/1.73 sq M.predicted MDRD (S/P/Bld) [Vol rate/Area] mL/min/{1.73_m2} >=60 mL/min/1.7 [address]m [address] [facility] Glucose [Mass/Vol] 106 mg/dL 74-106 [facility] Potassium [Moles/Vol] 4.2 mmol/L 3.5-5.1 [facility] Protein [Mass/Vol] 7.4 g/dL 6.4-8.2 [facility] Sodium [Moles/Vol] 135 mmol/L Low 136-145 [facility] Urea nitrogen [Mass/Vol] 11.0 mg/dL 7.0-18.[address] [facility] Urea nitrogen/Creatinine [Mass ratio] 15.9 mg/mg [facility] Laboratory - Hematology and Cell countson 08-24-2024 Immature granulocytes/100 WBC (Bld) 0.2 % 0.0-0.[address] [facility] Leukocytes [#/volume] correc audrey for nucleated erythrocytes in Blood by Automated counon 08-24-2024 WBC corrected for nucl RBC Auto (Bld) [#/Vol] Leukocytes [#/volume] corrected for nucleated erythrocytes in Blood by Automated coun 4.0-11.[address] [facility] Lymphocytes Auto (Bld) [#/Vo l]on 08-24-2024 Lymphocytes (Bld) [#/Vol] Lymphocytes [#/volume] in Blood by Automated count 1.2-3.[address] [facility] Lymphocytes/100 WBC Auto (Bl d)on 08-24-2024 Lymphocytes/100 WBC (Bld) Lymphocytes/100 leukocytes in Blood by Automated count 20.5-60.[address] [facility] MCH Auto (RBC) [Entitic mass ]on 08-24-2024 MCH (RBC) [Entitic mass] MCH [Entitic mass] by Automated count 26.7-34.[address] [facility] MCHC Auto (RBC) [Mass/Vol]on 08-24-2024 MCHC (RBC) [Mass/Vol] MCHC [Mass/volume] by Automated count 29.9-35.[address] [facility] MCV Auto (RBC) [Entitic vol] on 08-24-2024 MCV (RBC) [Entitic vol] MCV [Entitic volume] by Automated count 81.0-99.[address] [facility] Monocytes Auto (Bld) [#/Vol] on 08-24-2024 Monocytes (Bld) [#/Vol] Automated blood monocyte count 0.3-0.[address] [facility] Monocytes/100 WBC Auto (Bld) on 08-24-2024 Monocytes/100 WBC (Bld) Automated monocyte % 1.7-12.[address] [facility] Neutrophils Auto (Bld) [#/Vo l]on 08-24-2024 Neutrophils (Bld) [#/Vol] Neutrophils [#/volume] in Blood by Automated count 1.4-6.[address] [facility] Neutrophils/100 WBC Auto (Bl d)on 08-24-2024 Neutrophils/100 WBC (Bld) Automated neutrophil % 43.0-75.[address] [facility] No Panel Informationon 08-24 Eosinophils # (Auto) 0.1 10 3/uL 0.0-0.7 [facility] Immature Granulocyte # (Auto) 0.01 10 3/uL 0.00-0.[address] [facility] Platelet mean volume Auto (B ld) [Entitic vol]on 08-24-2024 Platelet mean volume (Bld) [Entitic vol] Platelet mean volume [Entitic volume] in Blood by Automated count 9.5-13.[address] [facility] Platelets Auto (Bld) [#/Vol] on 08-24-2024 Platelets (Bld) [#/Vol] Platelets [#/volume] in Blood by Automated count 150-[address] [facility] RBC Auto (Bld) [#/Vol]on RBC (Bld) [#/Vol] Erythrocytes [#/volu me] in Blood by Automated count 4.20-5.[address] [facility] Serum or plasma albumin/glob ulin mass ratioon 08-24-2024 Albumin/Globulin [Mass ratio] Serum or plasma albumin/globulin mass ratio [facility] Serum or plasma anion gap de terminationon 08-24-2024 Anion gap [Moles/Vol] Serum or plasma an ion gap determination [facility] Basophils Auto (Bld) [#/Vol] on 01-15-2024 Basophils (Bld) [#/Vol] 0.1 10 3/uL 0.0-0.[address] [facility] Basophils/100 WBC Auto (Bld) on 01-15-2024 Basophils/100 WBC (Bld) 1.0 % 0.2-2.[address] [facility] Eosinophils/100 WBC Auto (Bl d)on 01-15-2024 Eosinophils/100 WBC (Bld) 1.8 % 0.9-7.[address] [facility] Erythrocyte distribution wid th Auto (RBC) [Ratio]on 01-15-2024 Erythrocyte distribution width (RBC) [Ratio] 13.1 % 11.0-15.[address] [facility] Estimated glomerular filtrat ion rate (GFR) non- Americanon 01-15-2024 GFR/1.73 sq M.predicted among non-blacks MDRD (S/P/Bld) [Vol rate/Area] mL/min/{1.73_m2} >=[address] [facility] Globulin Calc (S) [Mass/Vol] on 01-15-2024 Globulin (S) [Mass/Vol] 3.6 g/dL [facility] Hematocrit Auto (Bld) [Volum e fraction]on 01-15-2024 Hematocrit (Bld) [Volume fraction] 42.6 % 36.0-48.[address] [facility] Hemoglobin [Mass/volume] in Bloodon 01-15-2024 Hemoglobin (Bld) [Mass/Vol] 13.7 g/dL 12.0-16.[address] [facility] Laboratory - Chemistry and C hemistry - challengeon 01-15-2024 Albumin [Mass/Vol] 4.0 g/dL 3.4-5.0 [facility] ALP [Catalytic activity/Vol] 90 U/L 46-[address] [facility] ALT [Catalytic activity/Vol] 22 U/L 14-[address] [facility] AST [Catalytic activity/Vol] 21 U/L 15-[address] [facility] Bilirubin [Mass/Vol] 0.6 mg/dL 0.2-1.0 [facility] Calcium [Mass/Vol] 9.6 mg/dL 8.5-10.1 [facility] Chloride [Moles/Vol] 102 mmol/L 98-107 [facility] CO2 [Moles/Vol] 26.2 mmol/L 21.0-32.0 [facility] Creatinine [Mass/Vol] 0.60 mg/dL 0.55-1.02 [facility] GFR/1.73 sq M.predicted MDRD (S/P/Bld) [Vol rate/Area] mL/min/{1.73_m2} >=[address] [facility] Glucose [Mass/Vol] 107 mg/dL High 74-106 [facility] Potassium [Moles/Vol] 4.2 mmol/L 3.5-5.1 [facility] Protein [Mass/Vol] 7.6 g/dL 6.4-8.2 [facility] Sodium [Moles/Vol] 136 mmol/L 136-145 [facility] Urea nitrogen [Mass/Vol] 13.0 mg/dL 7.0-18.[address] [facility] Urea nitrogen/Creatinine [Mass ratio] 21.7 mg/mg [facility] Laboratory - Hematology and Cell countson 01-15-2024 Immature granulocytes/100 WBC (Bld) 0.2 % 0.0-0.[address] [facility] Leukocytes [#/volume] correc audrey for nucleated erythrocytes in Blood by Automated counon 01-15-2024 WBC corrected for nucl RBC Auto (Bld) [#/Vol] 5.0 10 3/uL 4.0-11.[address] [facility] Lymphocytes Auto (Bld) [#/Vo l]on 01-15-2024 Lymphocytes (Bld) [#/Vol] 2.0 10 3/uL 1.2-3.[address] [facility] Lymphocytes/100 WBC Auto (Bl d)on 01-15-2024 Lymphocytes/100 WBC (Bld) 39.4 % 20.5-60.[address] [facility] MCH Auto (RBC) [Entitic mass ]on 01-15-2024 MCH (RBC) [Entitic mass] 32.2 pg 26.7-34.[address] [facility] MCHC Auto (RBC) [Mass/Vol]on 01-15-2024 MCHC (RBC) [Mass/Vol] 32.2 g/dL 29.9-35.2 [facility] MCV Auto (RBC) [Entitic vol] on 01-15-2024 MCV (RBC) [Entitic vol] 100.0 fL High 81.0-99.[address] [facility] Monocytes Auto (Bld) [#/Vol] on 01-15-2024 Monocytes (Bld) [#/Vol] 0.5 10 3/uL 0.3-0.[address] [facility] Monocytes/100 WBC Auto (Bld) on 01-15-2024 Monocytes/100 WBC (Bld) 9.1 % 1.7-12.[address] [facility] Neutrophils Auto (Bld) [#/Vo l]on 01-15-2024 Neutrophils (Bld) [#/Vol] 2.4 10 3/uL 1.4-6.[address] [facility] Neutrophils/100 WBC Auto (Bl d)on 01-15-2024 Neutrophils/100 WBC (Bld) 48.5 % 43.0-75.[address] [facility] No Panel Informationon 01-14 Eosinophils # (Auto) 0.1 10 3/uL 0.0-0.7 [facility] Immature Granulocyte # (Auto) 0.01 10 3/uL 0.00-0.[address] [facility] Platelet mean volume Auto (B ld) [Entitic vol]on 01-15-2024 Platelet mean volume (Bld) [Entitic vol] 10.9 fL 9.5-13.[address] [facility] Platelets Auto (Bld) [#/Vol] on 01-15-2024 Platelets (Bld) [#/Vol] 197 10 3/uL 150-[address] [facility] RBC Auto (Bld) [#/Vol]on RBC (Bld) [#/Vol] 4.26 10 6/uL 4.20-5.40 [facility] Serum or plasma albumin/glob ulin mass ratioon 01-15-2024 Albumin/Globulin [Mass ratio] 1.1 {ratio} [facility] Serum or plasma anion gap de terminationon 01-15-2024 Anion gap [Moles/Vol] 12.0 mmol/L [facility] Basophils Auto (Bld) [#/Vol] on 11-26-2023 Basophils (Bld) [#/Vol] 0.0 10 3/uL 0.0-0.[address] [facility] Basophils/100 WBC Auto (Bld) on 11-26-2023 Basophils/100 WBC (Bld) 0.9 % 0.2-2.[address] [facility] Cholesterol in LDL Calc [Mas s/Vol]on 11-26-2023 Cholesterol in LDL [Mass/Vol] 179.0 mg/dL [facility] Comment on above: <100 mg/dl [id number] 0-129 mg/dl NEAR OR ABOVE [id number] mg/dl BORDERLINE [id number] mg/dl HIGH>190 mg/dl VERY HIGH Cholesterol in VLDL Calc [Ma ss/Vol]on 11-26-2023 Cholesterol in VLDL [Mass/Vol] 28.0 mg/dL [facility] Eosinophils/100 WBC Auto (Bl d)on 11-26-2023 Eosinophils/100 WBC (Bld) 2.4 % 0.9-7.[address] [facility] Erythrocyte distribution wid th Auto (RBC) [Ratio]on 11-26-2023 Erythrocyte distribution width (RBC) [Ratio] 13.2 % 11.0-15.[address] [facility] Estimated glomerular filtrat ion rate (GFR) non- Americanon 11-26-2023 GFR/1.73 sq M.predicted among non-blacks MDRD (S/P/Bld) [Vol rate/Area] mL/min/{1.73_m2} >=[address] [facility] Globulin Calc (S) [Mass/Vol] on 11-26-2023 Globulin (S) [Mass/Vol] 3.5 g/dL [facility] Glucose mean value [Mass/vol ume] in Blood Estimated from glycated hemoglobinon 11-26-2023 Average glucose Estimated from glycated hemoglobin (Bld) [Mass/Vol] 94 mg/dL [facility] Hematocrit Auto (Bld) [Volum e fraction]on 11-26-2023 Hematocrit (Bld) [Volume fraction] 41.5 % 36.0-48.[address] [facility] Hemoglobin [Mass/volume] in Bloodon 11-26-2023 Hemoglobin (Bld) [Mass/Vol] 13.4 g/dL 12.0-16.[address] [facility] Laboratory - Chemistry and C hemistry - challengeon 11-26-2023 Albumin [Mass/Vol] 3.9 g/dL 3.4-5.0 [facility] ALP [Catalytic activity/Vol] 101 U/L 46-[address] [facility] ALT [Catalytic activity/Vol] 29 U/L 14-[address] [facility] AST [Catalytic activity/Vol] 19 U/L 15-[address] [facility] Bilirubin [Mass/Vol] 0.5 mg/dL 0.2-1.0 [facility] Calcium [Mass/Vol] 9.5 mg/dL 8.5-10.1 [facility] Chloride [Moles/Vol] 105 mmol/L 98-107 [facility] Cholesterol [Mass/Vol] 250 mg/dL High <=200 [facility] Cholesterol in HDL [Mass/Vol] 43 mg/dL 40-[address] [facility] Comment on above: > or =60 mg/dl - LOW CARDIOVASCULAR RISK<40 mg/dl - HIGH CARDIOVASCULAR RISK CO2 [Moles/Vol] 28.5 mmol/L 21.0-32.0 [facility] Creatinine [Mass/Vol] 0.57 mg/dL 0.55-1.02 [facility] GFR/1.73 sq M.predicted MDRD (S/P/Bld) [Vol rate/Area] mL/min/{1.73_m2} >=[address] [facility] Glucose [Mass/Vol] 100 mg/dL 74-106 [facility] Potassium [Moles/Vol] 4.0 mmol/L 3.5-5.1 [facility] Protein [Mass/Vol] 7.4 g/dL 6.4-8.2 [facility] Sodium [Moles/Vol] 142 mmol/L 136-145 [facility] Triglyceride [Mass/Vol] 140 mg/dL <=[address] [facility] TSH Qn 1.818 m[IU]/L 0.358-3.[address] [facility] Urea nitrogen [Mass/Vol] 16.0 mg/dL 7.0-18.[address] [facility] Urea nitrogen/Creatinine [Mass ratio] 28.1 mg/mg [facility] Laboratory - Hematology and Cell countson 11-26-2023 HbA1c (Bld) [Mass fraction] 4.9 % 4.5-6.[address] [facility] Comment on above: ADA RECOMMENDED LIMI T 4.0 - 6.0ADA THERAPEUTIC TARGET < 7.0ACTION SUGGESTED> 7.0 Immature granulocytes/100 WBC (Bld) 0.2 % 0.0-0.[address] [facility] Leukocytes [#/volume] correc audrey for nucleated erythrocytes in Blood by Automated counon 11-26-2023 WBC corrected for nucl RBC Auto (Bld) [#/Vol] 4.6 10 3/uL 4.0-11.[address] [facility] Lymphocytes Auto (Bld) [#/Vo l]on 11-26-2023 Lymphocytes (Bld) [#/Vol] 2.1 10 3/uL 1.2-3.[address] [facility] Lymphocytes/100 WBC Auto (Bl d)on 11-26-2023 Lymphocytes/100 WBC (Bld) 44.7 % 20.5-60.[address] [facility] MCH Auto (RBC) [Entitic mass ]on 11-26-2023 MCH (RBC) [Entitic mass] 31.5 pg 26.7-34.[address] [facility] MCHC Auto (RBC) [Mass/Vol]on 11-26-2023 MCHC (RBC) [Mass/Vol] 32.3 g/dL 29.9-35.2 [facility] MCV Auto (RBC) [Entitic vol] on 11-26-2023 MCV (RBC) [Entitic vol] 97.4 fL 81.0-99.[address] [facility] Monocytes Auto (Bld) [#/Vol] on 11-26-2023 Monocytes (Bld) [#/Vol] 0.4 10 3/uL 0.3-0.[address] [facility] Monocytes/100 WBC Auto (Bld) on 11-26-2023 Monocytes/100 WBC (Bld) 8.5 % 1.7-12.[address] [facility] Neutrophils Auto (Bld) [#/Vo l]on 11-26-2023 Neutrophils (Bld) [#/Vol] 2.0 10 3/uL 1.4-6.[address] [facility] Neutrophils/100 WBC Auto (Bl d)on 11-26-2023 Neutrophils/100 WBC (Bld) 43.3 % 43.0-75.[address] [facility] No Panel Informationon 11-25 Eosinophils # (Auto) 0.1 10 3/uL 0.0-0.7 [facility] Immature Granulocyte # (Auto) 0.01 10 3/uL 0.00-0.[address] [facility] Platelet mean volume Auto (B ld) [Entitic vol]on 11-26-2023 Platelet mean volume (Bld) [Entitic vol] 11.4 fL 9.5-13.[address] [facility] Platelets Auto (Bld) [#/Vol] on 11-26-2023 Platelets (Bld) [#/Vol] 210 10 3/uL 150-[address] [facility] RBC Auto (Bld) [#/Vol]on RBC (Bld) [#/Vol] 4.26 10 6/uL 4.20-5.40 [facility] Serum or plasma albumin/glob ulin mass ratioon 11-26-2023 Albumin/Globulin [Mass ratio] 1.1 {ratio} [facility] Serum or plasma anion gap de terminationon 11-26-2023 Anion gap [Moles/Vol] 12.5 mmol/L [facility] Serum or plasma total choles terol/high density lipoprotein (HDL) cholesterol mass johan 11-26-2023 Cholesterol.total/Chol esterol in HDL [Mass ratio] 5.8 {ratio} [facility] Comment on above: 3.3 - 4.4 LOW RISK4. 4 - 7.1 AVERAGE RISK7.1 - 11.0 MODERATE RISK>11.0 HIGH RISK Basophils Auto (Bld) [#/Vol] on 09-18-2023 Basophils (Bld) [#/Vol] 0.1 10 3/uL 0.0-0.[address] [facility] Basophils/100 WBC Auto (Bld) on 09-18-2023 Basophils/100 WBC (Bld) 1.1 % 0.2-2.[address] [facility] Eosinophils/100 WBC Auto (Bl d)on 09-18-2023 Eosinophils/100 WBC (Bld) 2.2 % 0.9-7.[address] [facility] Erythrocyte distribution wid th Auto (RBC) [Ratio]on 09-18-2023 Erythrocyte distribution width (RBC) [Ratio] 12.2 % 11.0-15.[address] [facility] Estimated glomerular filtrat ion rate (GFR) non- Americanon 09-18-2023 GFR/1.73 sq M.predicted among non-blacks MDRD (S/P/Bld) [Vol rate/Area] mL/min/{1.73_m2} >=[address] [facility] Globulin Calc (S) [Mass/Vol] on 09-18-2023 Globulin (S) [Mass/Vol] 3.3 g/dL [facility] Hematocrit Auto (Bld) [Volum e fraction]on 09-18-2023 Hematocrit (Bld) [Volume fraction] 42.5 % 36.0-48.[address] [facility] Hemoglobin [Mass/volume] in Bloodon 09-18-2023 Hemoglobin (Bld) [Mass/Vol] 13.5 g/dL 12.0-16.[address] [facility] Laboratory - Chemistry and C hemistry - challengeon 09-18-2023 Albumin [Mass/Vol] 3.8 g/dL 3.4-5.0 [facility] ALP [Catalytic activity/Vol] 89 U/L 46-[address] [facility] ALT [Catalytic activity/Vol] 26 U/L 14-[address] [facility] AST [Catalytic activity/Vol] 19 U/L 15-[address] [facility] Bilirubin [Mass/Vol] 0.4 mg/dL 0.2-1.0 [facility] Calcium [Mass/Vol] 8.9 mg/dL 8.5-10.1 [facility] Chloride [Moles/Vol] 105 mmol/L 98-107 [facility] CO2 [Moles/Vol] 29.0 mmol/L 21.0-32.0 [facility] Creatinine [Mass/Vol] 0.71 mg/dL 0.55-1.02 [facility] GFR/1.73 sq M.predicted MDRD (S/P/Bld) [Vol rate/Area] mL/min/{1.73_m2} >=[address] [facility] Glucose [Mass/Vol] 84 mg/dL 74-106 [facility] Potassium [Moles/Vol] 4.2 mmol/L 3.5-5.1 [facility] Protein [Mass/Vol] 7.1 g/dL 6.4-8.2 [facility] Sodium [Moles/Vol] 142 mmol/L 136-145 [facility] Urea nitrogen [Mass/Vol] 13.0 mg/dL 7.0-18.[address] [facility] Urea nitrogen/Creatinine [Mass ratio] 18.3 mg/mg [facility] Laboratory - Hematology and Cell countson 09-18-2023 Immature granulocytes/100 WBC (Bld) 0.2 % 0.0-0.[address] [facility] Leukocytes [#/volume] correc audrey for nucleated erythrocytes in Blood by Automated counon 09-18-2023 WBC corrected for nucl RBC Auto (Bld) [#/Vol] 4.6 10 3/uL 4.0-11.[address] [facility] Lymphocytes Auto (Bld) [#/Vo l]on 09-18-2023 Lymphocytes (Bld) [#/Vol] 2.6 10 3/uL 1.2-3.[address] [facility] Lymphocytes/100 WBC Auto (Bl d)on 09-18-2023 Lymphocytes/100 WBC (Bld) 56.8 % 20.5-60.[address] [facility] MCH Auto (RBC) [Entitic mass ]on 09-18-2023 MCH (RBC) [Entitic mass] 31.5 pg 26.7-34.[address] [facility] MCHC Auto (RBC) [Mass/Vol]on 09-18-2023 MCHC (RBC) [Mass/Vol] 31.8 g/dL 29.9-35.2 [facility] MCV Auto (RBC) [Entitic vol] on 09-18-2023 MCV (RBC) [Entitic vol] 99.1 fL 81.0-99.[address] [facility] Monocytes Auto (Bld) [#/Vol] on 09-18-2023 Monocytes (Bld) [#/Vol] 0.4 10 3/uL 0.3-0.[address] [facility] Monocytes/100 WBC Auto (Bld) on 09-18-2023 Monocytes/100 WBC (Bld) 8.2 % 1.7-12.[address] [facility] Neutrophils Auto (Bld) [#/Vo l]on 09-18-2023 Neutrophils (Bld) [#/Vol] 1.5 10 3/uL 1.4-6.[address] [facility] Neutrophils/100 WBC Auto (Bl d)on 09-18-2023 Neutrophils/100 WBC (Bld) 31.5 % 43.0-75.[address] [facility] No Panel Informationon 09-17 Eosinophils # (Auto) 0.1 10 3/uL 0.0-0.7 [facility] Immature Granulocyte # (Auto) 0.01 10 3/uL 0.00-0.[address] [facility] Platelet mean volume Auto (B ld) [Entitic vol]on 09-18-2023 Platelet mean volume (Bld) [Entitic vol] 11.1 fL 9.5-13.[address] [facility] Platelets Auto (Bld) [#/Vol] on 09-18-2023 Platelets (Bld) [#/Vol] 196 10 3/uL 150-[address] [facility] RBC Auto (Bld) [#/Vol]on RBC (Bld) [#/Vol] 4.29 10 6/uL 4.20-5.40 [facility] Serum or plasma albumin/glob ulin mass ratioon 09-18-2023 Albumin/Globulin [Mass ratio] 1.2 {ratio} [facility] Serum or plasma anion gap de terminationon 09-18-2023 Anion gap [Moles/Vol] 12.2 mmol/L [facility] Alanine aminotransferase [En zymatic activity/volume] in Serum or PlasmaOrdered By: Isaías Jordan on 03-20-2023 ALT [Catalytic activity/Vol] 16 U/L [facility] ALT [Catalytic activity/Vol] Alanine aminotransferase [Enzymatic activity/volume] in Serum or Plasma [facility] Albumin [Mass/volume] in Ser um or Plasma by Bromocresol green (BCG) dye binding methoOrdered By: Isaías Jordan on 03-20-2023 Albumin BCG dye [Mass/Vol] 4.4 g/dL 3.5-5.[address] [facility] Albumin BCG dye [Mass/Vol] Albumin [Mass/volume] in Serum or Plasma by Bromocresol green (BCG) dye binding metho 3.5-5.[address] [facility] Alkaline phosphatase [Enzyma tic activity/volume] in Serum or PlasmaOrdered By: Isaías Jordan on 03-20-2023 ALP [Catalytic activity/Vol] 88 U/L [address] [facility] ALP [Catalytic activity/Vol] Alkaline phosphatase [Enzymatic activity/volume] in Serum or Plasma [address] [facility] Aspartate aminotransferase [ Enzymatic activity/volume] in Serum or PlasmaOrdered By: Isaías Jordan on 03-20-2023 AST [Catalytic activity/Vol] 21 U/L [address] [facility] AST [Catalytic activity/Vol] Aspartate aminotransferase [Enzymatic activity/volume] in Serum or Plasma [address] [facility] Basophils Auto (Bld) [#/Vol] Ordered By: Isaías Jordan on 03-20-2023 Basophils (Bld) [#/Vol] 0.1 10*3/uL 0.0-0.[address] [facility] Basophils (Bld) [#/Vol] Automated basophil count 0.0-0.2 [facility] Basophils/100 WBC Auto (Bld) Ordered By: Isaías Jordan on 03-20-2023 Basophils/100 WBC (Bld) 1.2 % . [facility] Basophils/100 WBC (Bld) Automated basophil % . [facility] Bilirubin.total [Mass/volume ] in Serum or PlasmaOrdered By: Isaías Jordan on 03-20-2023 Bilirubin [Mass/Vol] 0.8 mg/dL 0.3-1.0 [facility] Bilirubin [Mass/Vol] Bilirubin.total [Mass/volume] in Serum or Plasma 0.3-1.[address] [facility] Calcium [Mass/volume] in Ser um or PlasmaOrdered By: Isaías Jordan on 03-20-2023 Calcium [Mass/Vol] 10.3 mg/dL 8.6-10.3 [facility] Calcium [Mass/Vol] Calcium [Mass/volume ] in Serum or Plasma 8.6-10.[address] [facility] Carbon dioxide, total [Moles /volume] in Serum or PlasmaOrdered By: Isaías Jordan on 03-20-2023 CO2 [Moles/Vol] 27.3 mmol/L 21.0-31.0 [facility] CO2 [Moles/Vol] Carbon dioxide, tota l [Moles/volume] in Serum or Plasma 21.0-31.[address] [facility] Chloride [Moles/volume] in S daljit or PlasmaOrdered By: Isaías Jordan on 03-20-2023 Chloride [Moles/Vol] 105 mmol/L 98-107 [facility] Chloride [Moles/Vol] Chloride [Moles/vol ume] in Serum or Plasma 98-[address] [facility] Creatinine [Mass/volume] in Serum or PlasmaOrdered By: Isaías Jordan on 03-20-2023 Creatinine [Mass/Vol] 0.73 mg/dL 0.60-1.20 [facility] Creatinine [Mass/Vol] Creatinine [Mass/v olume] in Serum or Plasma 0.60-1.[address] [facility] Eosinophils Auto (Bld) [#/Vo l]Ordered By: Isaías Jordan on 03-20-2023 Eosinophils (Bld) [#/Vol] 0.1 10*3/uL 0.0-0.[address] [facility] Eosinophils (Bld) [#/Vol] Automated eosinophil count 0.0-0.45 [facility] Eosinophils/100 WBC Auto (Bl d)Ordered By: Isaías Jordan on 03-20-2023 Eosinophils/100 WBC (Bld) 2.8 % . [facility] Eosinophils/100 WBC (Bld) Automated eosinophil % . [facility] Erythrocyte distribution wid th Auto (RBC) [Ratio]Ordered By: Isaías Jordan on 03-20-2023 Erythrocyte distribution width (RBC) [Ratio] 13.7 % 11.9-15.[address] [facility] Erythrocyte distribution width (RBC) [Ratio] Erythrocyte distribution width [Ratio] by Automated count 11.9-15.[address] [facility] Globulin Calc (S) [Mass/Vol] Ordered By: Isaías Jordan on 03-20-2023 Globulin (S) [Mass/Vol] 2.9 g/dL [facility] Globulin (S) [Mass/Vol] Serum globulin measurement by calculation (mass/volume) [facility] Glucose [Mass/volume] in Ser um or PlasmaOrdered By: Isaías Jordan on 03-20-2023 Glucose [Mass/Vol] 80 mg/dL 70-100 [facility] Comment on above: ADA recommended refe rence rangeRandom Glucose Reference Range is dependent on time and content of last meal. Glucose of more than 200 mg/dL in a nonstressed, ambulatory subject supports the diagnosis of Diabetes Mellitus. Glucose [Mass/Vol] Glucose [Mass/volume ] in Serum or Plasma 70-[address] [facility] Comment on above: ADA recommended refe rence rangeRandom Glucose Reference Range is dependent on time and content of last meal. Glucose of more than 200 mg/dL in a nonstressed, ambulatory subject supports the diagnosis of Diabetes Mellitus. Hematocrit Auto (Bld) [Volum e fraction]Ordered By: Isaías Jordan on 03-20-2023 Hematocrit (Bld) [Volume fraction] 40.8 % 34.0-46.[address] [facility] Hematocrit (Bld) [Volume fraction] Hematocrit [Volume Fraction] of Blood by Automated count 34.0-46.[address] [facility] Hemoglobin [Mass/volume] in BloodOrdered By: Isaías Jordan on 03-20-2023 Hemoglobin (Bld) [Mass/Vol] 13.8 g/dL 11.8-15.[address] [facility] Hemoglobin (Bld) [Mass/Vol] Hemoglobin [Mass/volume] in Blood 11.8-15.[address] [facility] Leukocytes [#/volume] correc audrey for nucleated erythrocytes in Blood by Automated counOrdered By: Isaías Jordan on 03-20-2023 WBC corrected for nucl RBC Auto (Bld) [#/Vol] 5.1 10*3/uL 3.8-11.[address] [facility] WBC corrected for nucl RBC Auto (Bld) [#/Vol] Leukocytes [#/volume] corrected for nucleated erythrocytes in Blood by Automated coun 3.8-11.[address] [facility] Lymphocytes Auto (Bld) [#/Vo l]Ordered By: Isaías Jordan on 03-20-2023 Lymphocytes (Bld) [#/Vol] 2.0 10*3/uL 1.00-4.[address] [facility] Lymphocytes (Bld) [#/Vol] Lymphocytes [#/volume] in Blood by Automated count 1.00-4.[address] [facility] Lymphocytes/100 WBC Auto (Bl d)Ordered By: Isaías Jordan on 03-20-2023 Lymphocytes/100 WBC (Bld) 39.4 % . [facility] Lymphocytes/100 WBC (Bld) Lymphocytes/100 leukocytes in Blood by Automated count . [facility] MCH Auto (RBC) [Entitic mass ]Ordered By: Isaías Jordan on 03-20-2023 MCH (RBC) [Entitic mass] 32.3 pg 24.7-34.[address] [facility] MCH (RBC) [Entitic mass] MCH [Entitic mass] by Automated count 24.7-34.[address] [facility] MCHC Auto (RBC) [Mass/Vol]Or dered By: Isaías Jordan on 03-20-2023 MCHC (RBC) [Mass/Vol] 33.7 g/dL 32.0-35.0 [facility] MCHC (RBC) [Mass/Vol] MCHC [Mass/volume] by Automated count 32.0-35.[address] [facility] MCV Auto (RBC) [Entitic vol] Ordered By: Isaías Jordan on 03-20-2023 MCV (RBC) [Entitic vol] 95.7 fL 80-[address] [facility] MCV (RBC) [Entitic vol] MCV [Entitic volume] by Automated count 80-[address] [facility] Monocytes Auto (Bld) [#/Vol] Ordered By: Isaías Jordan on 03-20-2023 Monocytes (Bld) [#/Vol] 0.5 10*3/uL 0.0-0.[address] [facility] Monocytes (Bld) [#/Vol] Automated blood monocyte count 0.0-0.[address] [facility] Monocytes/100 WBC Auto (Bld) Ordered By: Isaías Jordan on 03-20-2023 Monocytes/100 WBC (Bld) 9.0 % . [facility] Monocytes/100 WBC (Bld) Automated monocyte % . [facility] Neutrophils Auto (Bld) [#/Vo l]Ordered By: Isaías Jordan on 03-20-2023 Neutrophils (Bld) [#/Vol] 2.4 10*3/uL 1.8-7.[address] [facility] Neutrophils (Bld) [#/Vol] Neutrophils [#/volume] in Blood by Automated count 1.8-7.[address] [facility] Neutrophils/100 WBC Auto (Bl d)Ordered By: Isaías Jordan on 03-20-2023 Neutrophils/100 WBC (Bld) 47.6 % . [facility] Neutrophils/100 WBC (Bld) Automated neutrophil % . [facility] No Panel InformationOrdered By: Isaías Jordan on 03-20-2023 Estimated GFR (CKD-EPI) > 60.0 mL/Min [facility] Creatinine Clearance (Chem 86.[address] [facility] Nucleated erythrocytes [Pres ence] in Blood by Automated countOrdered By: Isaías Jordan on 03-20-2023 Nucleated RBC Auto Ql (Bld) 0.1 /100{WBC} 0-0.[address] [facility] Nucleated RBC Auto Ql (Bld) Nucleated erythrocytes [Presence] in Blood by Automated count 0-0.[address] [facility] Platelet mean volume Auto (B ld) [Entitic vol]Ordered By: Isaías Jordan on 03-20-2023 Platelet mean volume (Bld) [Entitic vol] 8.9 fL 6.3-10.[address] [facility] Platelet mean volume (Bld) [Entitic vol] Platelet mean volume [Entitic volume] in Blood by Automated count 6.3-10.[address] [facility] Platelets Auto (Bld) [#/Vol] Ordered By: Isaías Jordan on 03-20-2023 Platelets (Bld) [#/Vol] 198 10*3/uL 150-[address] [facility] Platelets (Bld) [#/Vol] Platelets [#/volume] in Blood by Automated count 150-[address] [facility] Potassium [Moles/volume] in Serum or PlasmaOrdered By: Isaías Jordan on 03-20-2023 Potassium [Moles/Vol] 4.3 mmol/L 3.5-5.1 [facility] Potassium [Moles/Vol] Potassium [Moles/v olume] in Serum or Plasma 3.5-5.[address] [facility] Protein [Mass/volume] in Ser um or PlasmaOrdered By: Isaías Jordan on 03-20-2023 Protein [Mass/Vol] 7.3 g/dL 6.4-8.9 [facility] Protein [Mass/Vol] Protein [Mass/volume ] in Serum or Plasma 6.4-8.[address] [facility] RBC Auto (Bld) [#/Vol]Ordere d By: Isaías Jordan on 03-20-2023 RBC (Bld) [#/Vol] 4.26 10*6/uL 3.60-5.00 [facility] RBC (Bld) [#/Vol] Erythrocytes [#/volu me] in Blood by Automated count 3.60-5.[address] [facility] Serum or plasma albumin/glob ulin mass ratioOrdered By: Isaías Jordan on 03-20-2023 Albumin/Globulin [Mass ratio] 1.5 {ratio} [facility] Albumin/Globulin [Mass ratio] Serum or plasma albumin/globulin mass ratio [facility] Serum or plasma anion gap de terminationOrdered By: Isaías Jordan on 03-20-2023 Anion gap [Moles/Vol] 11.0 mmol/L 6.0-15.0 [facility] Anion gap [Moles/Vol] Serum or plasma an ion gap determination 6.0-15.[address] [facility] Serum or plasma carcinoembry onic antigen measurement (mass/volume)Ordered By: Isaías Jordan on 03-20-2023 Carcinoembryonic Ag [Mass/Vol] 3.3 ng/mL High 0.0-3.[address] [facility] Carcinoembryonic Ag [Mass/Vol] Serum or plasma carcinoembryonic antigen measurement (mass/volume) High 0.0-3.[address] [facility] Sodium [Moles/volume] in Ser um or PlasmaOrdered By: Isaías Jordan on 03-20-2023 Sodium [Moles/Vol] 139 mmol/L 136-145 [facility] Sodium [Moles/Vol] Sodium [Moles/volume ] in Serum or Plasma 136-[address] [facility] Urea nitrogen [Mass/volume] in Serum or PlasmaOrdered By: Isaías Jordan on 03-20-2023 Urea nitrogen [Mass/Vol] 16 mg/dL [address] [facility] Urea nitrogen [Mass/Vol] Urea nitrogen [Mass/volume] in Serum or Plasma 01-[address] [facility] WBC Auto (Bld) [#/Vol]Ordere d By: Isaías Jordan on 03-20-2023 WBC (Bld) [#/Vol] 5.1 10*3/uL 3.8-11.6 [facility] WBC (Bld) [#/Vol] Leukocytes [#/volume ] in Blood by Automated count 3.8-11.[address] [facility] CBC AUTO DIFFon 11-16-2022 BASO # 0.0 103/ul Normal 0.0-0.1 [facility] Comment on above: Performed By: #### C BC #### [facility] [address] [place], [place] [address] Dr. Doreen Betancourt Basophils/100 WBC (Bld) 0.6 % Normal 0.2-2.0 [facility] Comment on above: Performed By: #### C BC #### [facility] [address] [place] [address] Dr. Doreen Betancourt EO # 0.0 103/ul Normal 0.0-0.7 [facility] Comment on above: Performed By: #### C BC #### [facility] [address] [place] [address] Dr. Doreen Betancourt Eosinophils/100 WBC (Bld) 0.6 % Critically low 0.9-7.0 [facility] Comment on above: Performed By: #### C BC #### [facility] [address] [place] [address] Dr. Doreen Betancourt Erythrocyte distribution width (RBC) [Ratio] 13.7 % Normal 11.0-15.0 [facility] Comment on above: Performed By: #### C BC #### [facility] [address] [place] [address] Dr. Doreen Betancourt Hematocrit (Bld) [Volume fraction] 41.0 % Normal 36.0-48.0 [facility] Comment on above: Performed By: #### C BC #### [facility] [address] [place] [address] Dr. Doreen Betancourt Hemoglobin (Bld) [Mass/Vol] 13.1 g/dL Normal 12.0-16.0 [facility] Comment on above: Performed By: #### C BC #### [facility] [address] [place] [address] Dr. Doreen Betancourt IG # 0.00 10e3/ul Normal 0.00-0.03 [facility] Comment on above: Performed By: #### C BC #### [facility] [address] [place] [address] Dr. Doreen Betancourt IG % 0.0 % Normal 0.0-0.5 [facility] Comment on above: Performed By: #### C BC #### [facility] [address] [place] [address] Dr. Doreen Betancourt LYMPH # 2.0 103/ul Normal 1.2-3.8 [facility] Comment on above: Performed By: #### C BC #### [facility] [address] [place] [address] Dr. Doreen Betancourt Lymphocytes/100 WBC (Bld) 55.3 % Normal 20.5-60.0 [facility] Comment on above: Performed By: #### C BC #### [facility] [address] [place] [address] Dr. Doreen Betancourt MANUAL DIFF REQ NO Normal [facility] Comment on above: Performed By: #### C BC #### [facility] [address] [place] [address] Dr. Doreen Betancourt MCH (RBC) [Entitic mass] 33.2 pg Normal 26.7-34.0 [facility] Comment on above: Performed By: #### C BC #### [facility] [address] [place] [address] Dr. Doreen Betancourt MCHC (RBC) [Mass/Vol] 32.0 g/dL Normal 29.9-35.2 [facility] Comment on above: Performed By: #### C BC #### [facility] [address] [place] [address] Dr. Doreen Betancourt MCV (RBC) [Entitic vol] 104.1 fL Critically high 81.0-99.0 [facility] Comment on above: Performed By: #### C BC #### [facility] [address] [place] [address] Dr. Doreen Betancourt MONO # 0.7 103/ul Normal 0.3-0.8 [facility] Comment on above: Performed By: #### C BC #### [facility] [address] [place] [address] Dr. Doreen Betancourt Monocytes/100 WBC (Bld) 18.7 % Critically high 1.7-12.0 [facility] Comment on above: Performed By: #### C BC #### [facility] [address] [place] [address] Dr. Doreen Betancourt NEUT # 0.9 103/ul Critically low 1.4-6.5 [facility] Comment on above: Performed By: #### C BC #### [facility] [address] [place] [address] Dr. Doreen Betancourt Neutrophils/100 WBC (Bld) 24.8 % Critically low 43.0-75.0 [facility] Comment on above: Performed By: #### C BC #### [facility] [address] [place] [address] Dr. Doreen Betancourt Platelet mean volume (Bld) [Entitic vol] 10.5 fL Normal 9.5-13.5 [facility] Comment on above: Performed By: #### C BC #### [facility] [address] [place] [address] Dr. Doreen Betancourt PLT 121 103/ul Critically low 150-450 [facility] Comment on above: Performed By: #### C BC #### [facility] [address] [place] [address] Dr. Doreen Betancourt RBC 3.94 106/ul Critically low 4.20-5.40 [facility] Comment on above: Performed By: #### C BC #### [facility] [address] [place] [address] Dr. Doreen Betancourt WBC 3.6 103/ul Critically low 4.0-11.0 [facility] Comment on above: Performed By: #### C BC #### [facility] [address] [place] [address] Dr. Doreen Betancourt MAGNESIUMon 11-16-2022 Magnesium [Mass/Vol] 2.0 mg/dL Normal 1.8-2.4 [facility] Comment on above: Performed By: #### M G, CMP #### [facility] [address] [place] [address] Dr. Doreen Betancourt PROF 14(COMP METB)on 023 Albumin [Mass/Vol] 3.7 g/dL Normal 3.4-5.0 [facility] Comment on above: Performed By: #### M G, CMP #### [facility] [address] [place] [address] Dr. Doreen Betancourt Albumin/Globulin [Mass ratio] 1.0 {ratio} Normal [facility] Comment on above: Performed By: #### M Salena, CMP #### [facility] [address] [place] [address] [address] Doreen Betancourt ALP [Catalytic activity/Vol] 161 U/L Critically high 46-116 [facility] Comment on above: Performed By: #### M G, CMP #### [facility] [address] [place] [address] Dr. Doreen Betancourt ALT [Catalytic activity/Vol] 49 U/L Normal 14-59 [facility] Comment on above: Performed By: #### M G, CMP #### [facility] [address] [place] [address] [address] Doreen Betancourt Anion gap [Moles/Vol] 9.8 mmol/L Normal [facility] Comment on above: Performed By: #### M G, CMP #### [facility] [address] [place] [address] Dr. Doreen Betancourt AST [Catalytic activity/Vol] 44 U/L Critically high 15-37 [facility] Comment on above: Performed By: #### M G, CMP #### [facility] [address] [place] [address] Dr. Doreen Betancourt Bilirubin [Mass/Vol] 0.4 mg/dL Normal 0.2-1.0 [facility] Comment on above: Performed By: #### M G, CMP #### [facility] [address] [place] [address] Dr. Doreen Betancourt Calcium [Mass/Vol] 9.6 mg/dL Normal 8.5-10.1 [facility] Comment on above: Performed By: #### M G, CMP #### [facility] [address] [place] [address] Dr. Doreen Betancourt Chloride [Moles/Vol] 106 mmol/L Normal 98-107 [facility] Comment on above: Performed By: #### M G, CMP #### [facility] [address] [place] [address] Dr. Doreen Betancourt CO2 [Moles/Vol] 30.1 mmol/L Normal 21.0-32.0 [facility] Comment on above: Performed By: #### M G, CMP #### [facility] [address] [place] [address] Dr. oDreen Betancourt Creatinine [Mass/Vol] 0.68 mg/dL Normal 0.55-1.02 [facility] Comment on above: Performed By: #### M G, CMP #### [facility] [address] [place] [address] Dr. Doreen Betancourt EGFR-AF IVORIAN >60 Normal >=60 [facility] Comment on above: Performed By: #### M G, CMP #### [facility] [address] [place] [address] Dr. Doreen Betancourt EGFR-NON AF IVORIAN >60 Normal >=60 [facility] Comment on above: Performed By: #### M G, CMP #### [facility] [address] [place] [address] Dr. Doreen Betancourt Globulin (S) [Mass/Vol] 3.7 g/dL Normal [facility] Comment on above: Performed By: #### M G, CMP #### [facility] [address] [place] [address] Dr. Doreen Betancourt Glucose [Mass/Vol] 107 mg/dL Critically high 74-106 [facility] Comment on above: Performed By: #### M G, CMP #### [facility] [address] [place] [address] Dr. Doreen Betancourt Potassium [Moles/Vol] 4.9 mmol/L Normal 3.5-5.1 [facility] Comment on above: Performed By: #### M G, CMP #### [facility] [address] [place] [address] Dr. Doreen Betancourt Protein [Mass/Vol] 7.4 g/dL Normal 6.4-8.2 [facility] Comment on above: Performed By: #### M G, CMP #### [facility] [address] [place] [address] Dr. Doreen Betancourt Sodium [Moles/Vol] 141 mmol/L Normal 136-145 [facility] Comment on above: Performed By: #### M G, CMP #### [facility] [address] [place] [address] Dr. Doreen Betancourt Urea nitrogen [Mass/Vol] 11.0 mg/dL Normal 7.0-18.0 [facility] Comment on above: Performed By: #### M G, CMP #### [facility] [address] [place] [address] Dr. Doreen Betancourt Urea nitrogen/Creatinine [Mass ratio] 16.2 mg/mg Normal [facility] Comment on above: Performed By: #### M G, CMP #### [facility] [address] [place] [address] Dr. Doreen Betancourt CBC AUTO DIFFon 11-02-2022 BASO # 0.0 103/ul Normal 0.0-0.1 [facility] Comment on above: Performed By: #### M G, CMP #### [facility] [address] [place] [address] Dr. Doreen Betancourt Basophils/100 WBC (Bld) 0.5 % Normal 0.2-2.0 [facility] Comment on above: Performed By: #### M G, CMP #### [facility] [address] [place] [address] Dr. Doreen Betancourt EO # 0.0 103/ul Normal 0.0-0.7 [facility] Comment on above: Performed By: #### M G, CMP #### [facility] [address] [place] [address] Dr. Doreen Betancourt Eosinophils/100 WBC (Bld) 0.8 % Critically low 0.9-7.0 [facility] Comment on above: Performed By: #### M G, CMP #### [facility] [address] [place] [address] Dr. Doreen Betancourt Erythrocyte distribution width (RBC) [Ratio] 13.2 % Normal 11.0-15.0 [facility] Comment on above: Performed By: #### M G, CMP #### [facility] [address] [place] [address] Dr. Doreen Betancourt Hematocrit (Bld) [Volume fraction] 40.7 % Normal 36.0-48.0 [facility] Comment on above: Performed By: #### Gay Martino, CMP #### [facility] [address] [place] [address] Dr. Doreen Betancourt Hemoglobin (Bld) [Mass/Vol] 13.5 g/dL Normal 12.0-16.0 [facility] Comment on above: Performed By: #### M G, CMP #### [facility] [address] [place] [address] Dr. Doreen Betancourt IG # 0.00 10e3/ul Normal 0.00-0.03 [facility] Comment on above: Performed By: #### M G, CMP #### [facility] [address] [place] [address] Dr. Doreen Betancourt IG % 0.0 % Normal 0.0-0.5 [facility] Comment on above: Performed By: #### M G, CMP #### [facility] [address] [place] [address] Dr. Doreen Betancourt LYMPH # 1.9 103/ul Normal 1.2-3.8 [facility] Comment on above: Performed By: #### M G, CMP #### [facility] [address] [place] [address] Dr. Doreen Betancourt Lymphocytes/100 WBC (Bld) 51.8 % Normal 20.5-60.0 [facility] Comment on above: Performed By: #### M G, CMP #### [facility] [address] [place] [address] Dr. Doreen Betancourt MANUAL DIFF REQ NO Normal [facility] Comment on above: Performed By: #### M G, CMP #### [facility] [address] [place] [address] Dr. Doreen Betancourt MCH (RBC) [Entitic mass] 34.3 pg Critically high 26.7-34.0 [facility] Comment on above: Performed By: #### M G, CMP #### [facility] [address] [place] [address] Dr. Doreen Betancourt MCHC (RBC) [Mass/Vol] 33.2 g/dL Normal 29.9-35.2 [facility] Comment on above: Performed By: #### M G, CMP #### [facility] [address] [place] [address] Dr. Doreen Betancourt MCV (RBC) [Entitic vol] 103.3 fL Critically high 81.0-99.0 [facility] Comment on above: Performed By: #### M G, CMP #### [facility] [address] [place] [address] Dr. Doreen Betancourt MONO # 0.5 103/ul Normal 0.3-0.8 [facility] Comment on above: Performed By: #### M G, CMP #### [facility] [address] [place] [address] Dr. Doreen Betancourt Monocytes/100 WBC (Bld) 13.9 % Critically high 1.7-12.0 [facility] Comment on above: Performed By: #### M G, CMP #### [facility] [address] [place] [address] Dr. Doreen Betancourt NEUT # 1.2 103/ul Critically low 1.4-6.5 [facility] Comment on above: Performed By: #### M G, CMP #### [facility] [address] [place] [address] Dr. Doreen Betancourt Neutrophils/100 WBC (Bld) 33.0 % Critically low 43.0-75.0 [facility] Comment on above: Performed By: #### M G, CMP #### [facility] [address] [place] [address] Dr. Doreen Betancourt Platelet mean volume (Bld) [Entitic vol] 10.0 fL Normal 9.5-13.5 [facility] Comment on above: Performed By: #### M G, CMP #### [facility] [address] [place] [address] Dr. Doreen Betancourt PLT 129 103/ul Critically low 150-450 [facility] Comment on above: Performed By: #### M G, CMP #### [facility] [address] [place] [address] Dr. Doreen Betancourt RBC 3.94 106/ul Critically low 4.20-5.40 [facility] Comment on above: Performed By: #### M G, CMP #### [facility] [address] [place] [address] Dr. Doreen Betancourt WBC 3.7 103/ul Critically low 4.0-11.0 [facility] Comment on above: Performed By: #### M G, CMP #### [facility] [address] [place] [address] Dr. Doreen Betancourt MAGNESIUMon 11-02-2022 Magnesium [Mass/Vol] 2.0 mg/dL Normal 1.8-2.4 [facility] Comment on above: Performed By: #### M G, CMP #### [facility] [address] [place] [address] Dr. Doreen Betancourt PROF 14(COMP METB)on 023 Albumin [Mass/Vol] 3.7 g/dL Normal 3.4-5.0 [facility] Comment on above: Performed By: #### Gay Martino, CMP #### [facility] [address] [place] [address] Dr. Doreen Betancourt Albumin/Globulin [Mass ratio] 1.0 {ratio} Normal [facility] Comment on above: Performed By: #### Gay Martino, CMP #### [facility] [address] [place] [address] Dr. Doreen Betancourt ALP [Catalytic activity/Vol] 133 U/L Critically high 46-116 [facility] Comment on above: Performed By: #### Gay G, CMP #### [facility] [address] [place] [address] Dr. Doreen Betancourt ALT [Catalytic activity/Vol] 47 U/L Normal 14-59 [facility] Comment on above: Performed By: #### M G, CMP #### [facility] [address] [place] [address] Dr. Doreen Betancourt Anion gap [Moles/Vol] 10.8 mmol/L Normal [facility] Comment on above: Performed By: #### M G, CMP #### [facility] [address] [place] [address] Dr. Doreen Betancourt AST [Catalytic activity/Vol] 39 U/L Critically high 15-37 [facility] Comment on above: Performed By: #### M G, CMP #### [facility] [address] [place] [address] Dr. Doreen Betancourt Bilirubin [Mass/Vol] 0.5 mg/dL Normal 0.2-1.0 [facility] Comment on above: Performed By: #### M G, CMP #### [facility] [address] [place] [address] Dr. Doreen Betancourt Calcium [Mass/Vol] 9.4 mg/dL Normal 8.5-10.1 [facility] Comment on above: Performed By: #### M G, CMP #### [facility] [address] [place] [address] Dr. Doreen Betancourt Chloride [Moles/Vol] 107 mmol/L Normal 98-107 [facility] Comment on above: Performed By: #### M G, CMP #### [facility] [address] [place] [address] Dr. Doreen Betancourt CO2 [Moles/Vol] 27.7 mmol/L Normal 21.0-32.0 [facility] Comment on above: Performed By: #### M G, CMP #### [facility] [address] [place] [address] Dr. Doreen Betancourt Creatinine [Mass/Vol] 0.70 mg/dL Normal 0.55-1.02 [facility] Comment on above: Performed By: #### M G, CMP #### [facility] [address] [place] [address] Dr. Doreen Betancourt EGFR-AF IVORIAN >60 Normal >=60 [facility] Comment on above: Performed By: #### M G, CMP #### [facility] [address] [place] [address] Dr. Doreen Betancourt EGFR-NON AF IVORIAN >60 Normal >=60 [facility] Comment on above: Performed By: #### M G, CMP #### [facility] [address] [place] [address] Dr. Doreen Betancourt Globulin (S) [Mass/Vol] 3.7 g/dL Normal [facility] Comment on above: Performed By: #### M G, CMP #### [facility] [address] [address] [address] Doreen Betancourt Glucose [Mass/Vol] 99 mg/dL Normal 74-106 [facility] Comment on above: Performed By: #### M G, CMP #### [facility] [address] [address] [address] Doreen Betancourt Potassium [Moles/Vol] 4.5 mmol/L Normal 3.5-5.1 [facility] Comment on above: Performed By: #### M G, CMP #### [facility] [address] [place] [address] Dr. Doreen Betancourt Protein [Mass/Vol] 7.4 g/dL Normal 6.4-8.2 [facility] Comment on above: Performed By: #### M G, CMP #### [facility] [address] [place] [address] Dr. Doreen Betancourt Sodium [Moles/Vol] 141 mmol/L Normal 136-145 [facility] Comment on above: Performed By: #### M G, CMP #### [facility] [address] [place] [address] Dr. Doreen Betancourt Urea nitrogen [Mass/Vol] 13.0 mg/dL Normal 7.0-18.0 [facility] Comment on above: Performed By: #### M G, CMP #### [facility] [address] [place] [address] Dr. Doreen Betancourt Urea nitrogen/Creatinine [Mass ratio] 18.6 mg/mg Normal [facility] Comment on above: Performed By: #### M G, CMP #### [facility] [address] [place] [address] Dr. Doreen Betancourt CBC AUTO DIFFon 10-19-2022 BASO # 0.1 103/ul Normal 0.0-0.1 [facility] Comment on above: Performed By: #### C BC #### [facility] [address] [place] [address] Dr. Doreen Betancourt Basophils/100 WBC (Bld) 1.0 % Normal 0.2-2.0 [facility] Comment on above: Performed By: #### C BC #### [facility] [address] [place] [address] Dr. Doreen Betancourt EO # 0.0 103/ul Normal 0.0-0.7 [facility] Comment on above: Performed By: #### C BC #### [facility] [address] [place] [address] Dr. Doreen Betancourt Eosinophils/100 WBC (Bld) 0.8 % Critically low 0.9-7.0 [facility] Comment on above: Performed By: #### C BC #### [facility] [address] [place] [address] Dr. Doreen Betancourt Erythrocyte distribution width (RBC) [Ratio] 13.2 % Normal 11.0-15.0 [facility] Comment on above: Performed By: #### C BC #### [facility] [address] [place] [address] Dr. Doreen Betancourt Hematocrit (Bld) [Volume fraction] 40.3 % Normal 36.0-48.0 [facility] Comment on above: Performed By: #### C BC #### [facility] [address] [place] [address] Dr. Doreen Betancourt Hemoglobin (Bld) [Mass/Vol] 13.3 g/dL Normal 12.0-16.0 [facility] Comment on above: Performed By: #### C BC #### [facility] [address] [place] [address] Dr. Doreen Betancourt IG # 0.02 10e3/ul Normal 0.00-0.03 [facility] Comment on above: Performed By: #### C BC #### [facility] [address] [place] [address] Dr. Doreen Betancourt IG % 0.4 % Normal 0.0-0.5 [facility] Comment on above: Performed By: #### C BC #### [facility] [address] [place] [address] Dr. Doreen Betancourt LYMPH # 1.8 103/ul Normal 1.2-3.8 [facility] Comment on above: Performed By: #### C BC #### [facility] [address] [place] [address] Dr. Doreen Betancourt Lymphocytes/100 WBC (Bld) 36.8 % Normal 20.5-60.0 [facility] Comment on above: Performed By: #### C BC #### [facility] [address] [place] [address] Dr. Doreen Betancourt MANUAL DIFF REQ NO Normal [facility] Comment on above: Performed By: #### C BC #### [facility] [address] [place] [address] Dr. Doreen Betancourt MCH (RBC) [Entitic mass] 33.8 pg Normal 26.7-34.0 [facility] Comment on above: Performed By: #### C BC #### [facility] [address] [place] [address] Dr. Doreen Betancourt MCHC (RBC) [Mass/Vol] 33.0 g/dL Normal 29.9-35.2 [facility] Comment on above: Performed By: #### C BC #### [facility] [address] [place] [address] Dr. Doreen Betancourt MCV (RBC) [Entitic vol] 102.5 fL Critically high 81.0-99.0 [facility] Comment on above: Performed By: #### C BC #### [facility] [address] [place] [address] Dr. Doreen Betancourt MONO # 0.6 103/ul Normal 0.3-0.8 [facility] Comment on above: Performed By: #### C BC #### [facility] [address] [place] [address] Dr. Doreen Betancourt Monocytes/100 WBC (Bld) 12.3 % Critically high 1.7-12.0 [facility] Comment on above: Performed By: #### C BC #### [facility] [address] [place] [address] Dr. Doreen Betancourt NEUT # 2.4 103/ul Normal 1.4-6.5 [facility] Comment on above: Performed By: #### C BC #### [facility] [address] [place] [address] Dr. Doreen Betancourt Neutrophils/100 WBC (Bld) 48.7 % Normal 43.0-75.0 [facility] Comment on above: Performed By: #### C BC #### [facility] [address] [place] [address] Dr. Doreen Betancourt Platelet mean volume (Bld) [Entitic vol] 10.3 fL Normal 9.5-13.5 [facility] Comment on above: Performed By: #### C BC #### [facility] [address] [place] [address] Dr. Doreen Betancourt PLT 239 103/ul Normal 150-450 [facility] Comment on above: Performed By: #### C BC #### [facility] [address] [place] [address] Dr. Doreen Betancourt RBC 3.93 106/ul Critically low 4.20-5.40 [facility] Comment on above: Performed By: #### C BC #### [facility] [address] [place] [address] Dr. Doreen Betancourt WBC 4.9 103/ul Normal 4.0-11.0 [facility] Comment on above: Performed By: #### C BC #### [facility] [address] [place] [address] Dr. Doreen Betancourt MAGNESIUMon 10-19-2022 Magnesium [Mass/Vol] 1.9 mg/dL Normal 1.8-2.4 [facility] Comment on above: Performed By: #### M G, CMP #### [facility] [address] [place] [address] Dr. Doreen Betancourt PROF 14(COMP METB)on 023 Albumin [Mass/Vol] 3.5 g/dL Normal 3.4-5.0 [facility] Comment on above: Performed By: #### C MP, MG #### [facility] [address] [place] [address] Dr. Doreen Betancourt Albumin/Globulin [Mass ratio] 0.9 {ratio} Normal [facility] Comment on above: Performed By: #### C MP, MG #### [facility] [address] [address] [address] Doreen Betancourt ALP [Catalytic activity/Vol] 153 U/L Critically high 46-116 [facility] Comment on above: Performed By: #### C MP, MG #### [facility] [address] [address] [address] Doreen Betancourt ALT [Catalytic activity/Vol] 36 U/L Normal 14-59 [facility] Comment on above: Performed By: #### C MP, MG #### [facility] [address] [address] [address] Doreen Betancourt Anion gap [Moles/Vol] 11.7 mmol/L Normal [facility] Comment on above: Performed By: #### C MP, MG #### [facility] [address] [address] [address] Doreen Betancourt AST [Catalytic activity/Vol] 30 U/L Normal 15-37 [facility] Comment on above: Performed By: #### C MP, MG #### [facility] [address] [address] [address] Doreen Betancourt Bilirubin [Mass/Vol] 0.5 mg/dL Normal 0.2-1.0 [facility] Comment on above: Performed By: #### C MP, MG #### [facility] [address] [address] [address] Doreen Betancourt Calcium [Mass/Vol] 9.2 mg/dL Normal 8.5-10.1 [facility] Comment on above: Performed By: #### C MP, MG #### [facility] [address] [address] [address] Doreen Betancourt Chloride [Moles/Vol] 105 mmol/L Normal 98-107 [facility] Comment on above: Performed By: #### C MP, MG #### [facility] [address] [address] [address] Doreen Betancourt CO2 [Moles/Vol] 27.3 mmol/L Normal 21.0-32.0 [facility] Comment on above: Performed By: #### C MP, MG #### [facility] [address] [address] [address] Doreen Betancourt Creatinine [Mass/Vol] 0.75 mg/dL Normal 0.55-1.02 [facility] Comment on above: Performed By: #### C MP, MG #### [facility] [address] [address] [address] Doreen Betancourt EGFR-AF IVORIAN >60 Normal >=60 [facility] Comment on above: Performed By: #### C MP, MG #### [facility] [address] [address] [address] Doreen Betancourt EGFR-NON AF IVORIAN >60 Normal >=60 [facility] Comment on above: Performed By: #### C MP, MG #### [facility] [address] [place] [address] Dr. Doreen Betancourt Globulin (S) [Mass/Vol] 4.0 g/dL Normal [facility] Comment on above: Performed By: #### C MP, MG #### [facility] [address] [place] [address] Dr. Doreen Betancourt Glucose [Mass/Vol] 89 mg/dL Normal 74-106 [facility] Comment on above: Performed By: #### C MP, MG #### [facility] [address] [place] [address] Dr. Doreen Betancourt Potassium [Moles/Vol] 4.0 mmol/L Normal 3.5-5.1 [facility] Comment on above: Performed By: #### C MP, MG #### [facility] [address] [place] [address] Dr. Doreen Betancourt Protein [Mass/Vol] 7.5 g/dL Normal 6.4-8.2 [facility] Comment on above: Performed By: #### C MP, MG #### [facility] [address] [place] [address] Dr. Doreen Betancourt Sodium [Moles/Vol] 140 mmol/L Normal 136-145 [facility] Comment on above: Performed By: #### C MP, MG #### [facility] [address] [address] [address] Doreen Betancourt Urea nitrogen [Mass/Vol] 18.0 mg/dL Normal 7.0-18.0 [facility] Comment on above: Performed By: #### C MP, MG #### [facility] [address] [place] [address] Dr. Doreen Betancourt Urea nitrogen/Creatinine [Mass ratio] 24.0 mg/mg Normal [facility] Comment on above: Performed By: #### C MP, MG #### [facility] [address] [place] [address] Dr. Doreen Betancourt Magnesium [Mass/volume] in S daljit or PlasmaOrdered By: Isaías Jordan on 09-23-2022 Magnesium [Mass/Vol] 2.2 mg/dL 1.9-2.7 [facility] Magnesium [Mass/Vol] Magnesium [Mass/vol ume] in Serum or Plasma 1.9-2.[address] [facility] CBC AUTO DIFFon 09-14-2022 BASO # 0.0 103/ul Normal 0.0-0.1 [facility] Comment on above: Performed By: #### C BC #### [facility] [address] [place] [address] Dr. Doreen Betancourt Basophils/100 WBC (Bld) 0.3 % Normal 0.2-2.0 [facility] Comment on above: Performed By: #### C BC #### [facility] [address] [place] [address] Dr. Doreen Betancourt EO # 0.0 103/ul Normal 0.0-0.7 [facility] Comment on above: Performed By: #### C BC #### [facility] [address] [place] [address] Dr. Doreen Betancourt Eosinophils/100 WBC (Bld) 0.9 % Normal 0.9-7.0 [facility] Comment on above: Performed By: #### C BC #### [facility] [address] [place] [address] Dr. Doreen Betancourt Erythrocyte distribution width (RBC) [Ratio] 16.3 % Critically high 11.0-15.0 [facility] Comment on above: Performed By: #### C BC #### [facility] [address] [place] [address] Dr. Doreen Betancourt Hematocrit (Bld) [Volume fraction] 37.3 % Normal 36.0-48.0 [facility] Comment on above: Performed By: #### C BC #### [facility] [address] [place] [address] Dr. Doreen Betancourt Hemoglobin (Bld) [Mass/Vol] 12.4 g/dL Normal 12.0-16.0 [facility] Comment on above: Performed By: #### C BC #### [facility] [address] [place] [address] Dr. Doreen Betancourt IG # 0.01 10e3/ul Normal 0.00-0.03 [facility] Comment on above: Performed By: #### C BC #### [facility] [address] [place] [address] Dr. Doreen Betancourt IG % 0.3 % Normal 0.0-0.5 [facility] Comment on above: Performed By: #### C BC #### [facility] [address] [place] [address] Dr. Doreen Betancourt LYMPH # 1.1 103/ul Critically low 1.2-3.8 [facility] Comment on above: Performed By: #### C BC #### [facility] [address] [place] [address] Dr. Doreen Betancourt Lymphocytes/100 WBC (Bld) 30.7 % Normal 20.5-60.0 [facility] Comment on above: Performed By: #### C BC #### [facility] [address] [place] [address] Dr. Doreen Betancourt MANUAL DIFF REQ NO Normal [facility] Comment on above: Performed By: #### C BC #### [facility] [address] [place] [address] Dr. Doreen Betancourt MCH (RBC) [Entitic mass] 34.3 pg Critically high 26.7-34.0 [facility] Comment on above: Performed By: #### C BC #### [facility] [address] [address] [address] Doreen Betancourt MCHC (RBC) [Mass/Vol] 33.2 g/dL Normal 29.9-35.2 [facility] Comment on above: Performed By: #### C BC #### [facility] [address] [address] [address] Doreen Betancourt MCV (RBC) [Entitic vol] 103.3 fL Critically high 81.0-99.0 [facility] Comment on above: Performed By: #### C BC #### [facility] [address] [place] [address] Dr. Doreen Betancourt MONO # 0.4 103/ul Normal 0.3-0.8 [facility] Comment on above: Performed By: #### C BC #### [facility] [address] [place] [address] Dr. Doreen Betancourt Monocytes/100 WBC (Bld) 11.4 % Normal 1.7-12.0 [facility] Comment on above: Performed By: #### C BC #### [facility] [address] [place] [address] Dr. Doreen Betancourt NEUT # 2.0 103/ul Normal 1.4-6.5 [facility] Comment on above: Performed By: #### C BC #### [facility] [address] [place] [address] Dr. Doreen Betancourt Neutrophils/100 WBC (Bld) 56.4 % Normal 43.0-75.0 [facility] Comment on above: Performed By: #### C BC #### [facility] [address] [address] [address] Doreen Betancourt Platelet mean volume (Bld) [Entitic vol] 10.0 fL Normal 9.5-13.5 [facility] Comment on above: Performed By: #### C BC #### [facility] [address] [address] [address] Doreen Betancourt PLT 128 103/ul Critically low 150-450 [facility] Comment on above: Performed By: #### C BC #### [facility] [address] [place] [address] Dr. Doreen Betancourt RBC 3.61 106/ul Critically low 4.20-5.40 [facility] Comment on above: Performed By: #### C BC #### [facility] [address] [place] [address] Dr. Doreen Betancourt WBC 3.5 103/ul Critically low 4.0-11.0 [facility] Comment on above: Performed By: #### C BC #### [facility] [address] [place] [address] Dr. Doreen Betancourt MAGNESIUMon 09-14-2022 Magnesium [Mass/Vol] 1.9 mg/dL Normal 1.8-2.4 [facility] Comment on above: Performed By: #### C VDTBH #### [facility] [address] [place] [address] Dr. Doreen Betancourt PROF 14(COMP METB)on 023 Albumin [Mass/Vol] 3.7 g/dL Normal 3.4-5.0 [facility] Comment on above: Performed By: #### C VDTBH #### [facility] [address] [place] [address] Dr. Doreen Betancourt Albumin/Globulin [Mass ratio] 1.1 {ratio} Normal [facility] Comment on above: Performed By: #### C VDTBH #### [facility] [address] [place] [address] Dr. Doreen Betancourt ALP [Catalytic activity/Vol] 138 U/L Critically high 46-116 [facility] Comment on above: Performed By: #### C VDTBH #### [facility] [address] [place] [address] Dr. Doreen Betancourt ALT [Catalytic activity/Vol] 42 U/L Normal 14-59 [facility] Comment on above: Performed By: #### C VDTBH #### [facility] [address] [place] [address] Dr. Doreen Betancourt Anion gap [Moles/Vol] 11.0 mmol/L Normal Th [facility] Comment on above: Performed By: #### C VDTBH #### [facility] [address] [place] [address] Dr. Doreen Betancourt AST [Catalytic activity/Vol] 36 U/L Normal 15-37 [facility] Comment on above: Performed By: #### C VDTBH #### [facility] [address] [place] [address] Dr. Doreen Betancourt Bilirubin [Mass/Vol] 0.5 mg/dL Normal 0.2-1.0 [facility] Comment on above: Performed By: #### C VDTBH #### [facility] [address] [place] [address] Dr. Doreen Betancourt Calcium [Mass/Vol] 9.6 mg/dL Normal 8.5-10.1 [facility] Comment on above: Performed By: #### C VDTBH #### [facility] [address] [place] [address] Dr. Doreen Betancourt Chloride [Moles/Vol] 104 mmol/L Normal 98-107 [facility] Comment on above: Performed By: #### C VDTBH #### [facility] [address] [place] [address] Dr. Doreen Betancourt CO2 [Moles/Vol] 29.8 mmol/L Normal 21.0-32.0 [facility] Comment on above: Performed By: #### C VDTBH #### [facility] [address] [place] [address] Dr. Doreen Betancourt Creatinine [Mass/Vol] 0.62 mg/dL Normal 0.55-1.02 [facility] Comment on above: Performed By: #### C VDTBH #### [facility] [address] [place] [address] Dr. Doreen Betancourt EGFR-AF IVORIAN >60 Normal >=60 [facility] Comment on above: Performed By: #### C VDTBH #### [facility] [address] [place] [address] Dr. Doreen Betancourt EGFR-NON AF IVORIAN >60 Normal >=60 [facility] Comment on above: Performed By: #### C VDTBH #### [facility] [address] [address] [address] Doreen Betancourt Globulin (S) [Mass/Vol] 3.4 g/dL Normal [facility] Comment on above: Performed By: #### C VDTBH #### [facility] [address] [address] [address] Doreen Betancourt Glucose [Mass/Vol] 115 mg/dL Critically high 74-106 [facility] Comment on above: Performed By: #### C VDTBH #### [facility] [address] [address] [address] Doreen Betancourt Potassium [Moles/Vol] 4.8 mmol/L Normal 3.5-5.1 [facility] Comment on above: Performed By: #### C VDTBH #### [facility] [address] [address] [address] Doreen Betancourt Protein [Mass/Vol] 7.1 g/dL Normal 6.4-8.2 [facility] Comment on above: Performed By: #### C VDTBH #### [facility] [address] [address] [address] Doreen Betancourt Sodium [Moles/Vol] 140 mmol/L Normal 136-145 [facility] Comment on above: Performed By: #### C VDTBH #### [facility] [address] [address] [address] Doreen Betancourt Urea nitrogen [Mass/Vol] 14.0 mg/dL Normal 7.0-18.0 [facility] Comment on above: Performed By: #### C VDTBH #### [facility] [address] [address] [address] Doreen Betancourt Urea nitrogen/Creatinine [Mass ratio] 22.6 mg/mg Normal [facility] Comment on above: Performed By: #### C VDTBH #### [facility] [address] [address] [address] Doreen Betancourt HEP B SURFACE ANTIGEN SCREEN on 09-03-2022 HBsAg Screen Negative Normal Negative [facility] Comment on above: Performed By: #### C VDTBH #### [facility] [address] [place] [address] Dr. Doreen Betancourt HEPATITIS B SURFACE ANTIBODY , QUANTon 09-03-2022 Hepatitis B Surf AB Quant 46.7 mIU/mL Normal Immunity>9 .9 [facility] Comment on above: Result Comment: Stat us of Immunity Anti-HBs Level Inconsistent with Immunity 0.0 - 9.9 Consistent with Immunity >9.9 Performed By: #### Gay G, CMP #### [facility] [address] [place] [address] Dr. Doreen Betancourt HEPATITIS C ANTIBODYon 09-03 Hep C Virus Ab Non-Reactive Normal Non Reactive [facility] Comment on above: Result Comment: HCV antibody alone does not differentiate between previously resolved infection and active infection. Equivocal and Reactive HCV antibody results should be followed up with an HCV RNA test to support the diagnosis of active HCV infection. Performed By: #### C VDTBH #### [facility] [address] [place] [address] Dr. Doreen Betancourt RPR QUANTon 09-03-2022 Rapid Plasma Reagin, Quant Non-Reactive Normal NonRea<1:1 [facility] Comment on above: Result Comment: Plea se Note: This test does not meet current guidelines for screening and diagnosis of syphilis. This test is intended for following treatment response in patients being treated for syphilis infection. To screen for syphilis infection, a reflex cascade that includes both RPR and a treponema-specific assay should be utilized, such as Treponema pallidum (Syphilis) Screening [place] (733759) or Rapid Plasma Reagin (RPR) Test With Reflex to Quantitative RPR and Confirmatory Treponema pallidum Antibodies (832032). Performed By: #### Gay G, CMP #### [facility] [address] [place] [id number] [address] Doreen Betancourt HIV 1/2 RAPID (EXPOSURE ONLY )on 09-01-2022 HIV AB Non-Reactive Normal NON-REACTI VE [facility] Comment on above: Performed By: #### M G, CMP #### [facility] [address] [place] [address] Dr. Doreen Betancourt HIV AG Non-Reactive Normal NON-REACTI VE [facility] Comment on above: Performed By: #### M G, CMP #### [facility] [address] [place] [address] Dr. Doreen Betancourt INTERNAL CONTROLS Within Normal Limits Normal Wi thin Normal Limits [facility] Comment on above: Performed By: #### M G, CMP #### [facility] [address] [place] [address] Dr. Doreen Betancourt RAPID HIV INFO SEE BELOW Normal [facility] Comment on above: Result Comment: This test is used for the initial screening of the exposure source. Confirmation of all reactive results will be obtained through reference lab testing. Performed By: #### M G, CMP #### [facility] Laboratory [address] [place] [address] Dr. Doreen Betancourt CBC AUTO DIFFon 08-31-2022 BASO # 0.0 103/ul Normal 0.0-0.1 [facility] Comment on above: Performed By: #### M G, CMP #### [facility] [address] [place] [address] Dr. Doreen Betancourt Basophils/100 WBC (Bld) 0.7 % Normal 0.2-2.0 [facility] Comment on above: Performed By: #### M G, CMP #### [facility] [address] [place] [address] Dr. Doreen Betancourt EO # 0.0 103/ul Normal 0.0-0.7 [facility] Comment on above: Performed By: #### M G, CMP #### [facility] [address] [place] [address] Dr. Doreen Betancourt Eosinophils/100 WBC (Bld) 0.7 % Critically low 0.9-7.0 [facility] Comment on above: Performed By: #### M G, CMP #### [facility] [address] [place] [address] Dr. Doreen Betancourt Erythrocyte distribution width (RBC) [Ratio] 18.2 % Critically high 11.0-15.0 [facility] Comment on above: Performed By: #### M Salena, CMP #### [facility] [address] [place] [address] Dr. Doreen Betancourt Hematocrit (Bld) [Volume fraction] 37.8 % Normal 36.0-48.0 [facility] Comment on above: Performed By: #### M G, CMP #### [facility] [address] [place] [address] Dr. Doreen Betancourt Hemoglobin (Bld) [Mass/Vol] 12.3 g/dL Normal 12.0-16.0 [facility] Comment on above: Performed By: #### M Salena, CMP #### [facility] [address] [place] [address] Dr. Doreen Betancourt IG # 0.01 10e3/ul Normal 0.00-0.03 [facility] Comment on above: Performed By: #### Gay Martino, CMP #### [facility] [address] [place] [address] Dr. Doreen Betancourt IG % 0.3 % Normal 0.0-0.5 [facility] Comment on above: Performed By: #### M Salena, CMP #### [facility] [address] [place] [address] Dr. Doreen Betancourt LYMPH # 1.5 103/ul Normal 1.2-3.8 [facility] Comment on above: Performed By: #### Gay Martino, CMP #### [facility] [address] [place] [address] Dr. Doreen Betancourt Lymphocytes/100 WBC (Bld) 49.5 % Normal 20.5-60.0 [facility] Comment on above: Performed By: #### M G, CMP #### [facility] [address] [place] [address] Dr. Doreen Betancourt MANUAL DIFF REQ NO Normal [facility] Comment on above: Performed By: #### M G, CMP #### [facility] [address] [place] [address] Dr. Doreen Betancourt MCH (RBC) [Entitic mass] 33.3 pg Normal 26.7-34.0 [facility] Comment on above: Performed By: #### M G, CMP #### [facility] [address] [place] [address] Dr. Doreen Betancourt MCHC (RBC) [Mass/Vol] 32.5 g/dL Normal 29.9-35.2 [facility] Comment on above: Performed By: #### M G, CMP #### [facility] [address] [place] [address] Dr. Droeen Betancourt MCV (RBC) [Entitic vol] 102.4 fL Critically high 81.0-99.0 [facility] Comment on above: Performed By: #### M G, CMP #### [facility] [address] [place] [address] Dr. Doreen Betancourt MONO # 0.5 103/ul Normal 0.3-0.8 [facility] Comment on above: Performed By: #### M G, CMP #### [facility] [address] [place] [address] Dr. Doreen Betancourt Monocytes/100 WBC (Bld) 14.7 % Critically high 1.7-12.0 [facility] Comment on above: Performed By: #### M G, CMP #### [facility] [address] [place] [address] Dr. Doreen Betancourt NEUT # 1.1 103/ul Critically low 1.4-6.5 [facility] Comment on above: Performed By: #### M G, CMP #### [facility] [address] [place] [address] Dr. Doreen Betancourt Neutrophils/100 WBC (Bld) 34.1 % Critically low 43.0-75.0 [facility] Comment on above: Performed By: #### M G, CMP #### [facility] [address] [place] [address] Dr. Doreen Betancourt Platelet mean volume (Bld) [Entitic vol] 11.1 fL Normal 9.5-13.5 [facility] Comment on above: Performed By: #### M G, CMP #### [facility] [address] [place] [address] Dr. Doreen Betancourt PLT 117 103/ul Critically low 150-450 [facility] Comment on above: Performed By: #### M G, CMP #### [facility] [address] [place] [address] Dr. Doreen Betancourt RBC 3.69 106/ul Critically low 4.20-5.40 [facility] Comment on above: Performed By: #### M G, CMP #### [facility] [address] [place] [address] Dr. Doreen Betancourt WBC 3.1 103/ul Critically low 4.0-11.0 [facility] Comment on above: Performed By: #### M G, CMP #### [facility] [address] [place] [address] Dr. Doreen Betancourt MAGNESIUMon 08-31-2022 Magnesium [Mass/Vol] 2.0 mg/dL Normal 1.8-2.4 [facility] Comment on above: Performed By: #### Gay Martino, CMP #### [facility] [address] [place] [address] Dr. Doreen Betancourt PROF 14(COMP METB)on 023 Albumin [Mass/Vol] 3.4 g/dL Normal 3.4-5.0 [facility] Comment on above: Performed By: #### M G, CMP #### [facility] [address] [place] [address] Dr. Doreen Betancourt Albumin/Globulin [Mass ratio] 1.0 {ratio} Normal [facility] Comment on above: Performed By: #### Gay G, CMP #### [facility] [address] [place] [address] Dr. Doreen Betancourt ALP [Catalytic activity/Vol] 121 U/L Critically high 46-116 [facility] Comment on above: Performed By: #### M G, CMP #### [facility] [address] [place] [address] Dr. Doreen Betancourt ALT [Catalytic activity/Vol] 52 U/L Normal 14-59 [facility] Comment on above: Performed By: #### Gay Martino, CMP #### [facility] [address] [address] [address] Doreen Betancourt Anion gap [Moles/Vol] 11.5 mmol/L Normal [facility] Comment on above: Performed By: #### M G, CMP #### [facility] [address] [address] [address] Doreen Betancourt AST [Catalytic activity/Vol] 34 U/L Normal 15-37 [facility] Comment on above: Performed By: #### M G, CMP #### [facility] [address] [address] [address] Doreen Betancourt Bilirubin [Mass/Vol] 0.4 mg/dL Normal 0.2-1.0 [facility] Comment on above: Performed By: #### M G, CMP #### [facility] [address] [address] [address] Doreen Betancourt Calcium [Mass/Vol] 9.5 mg/dL Normal 8.5-10.1 [facility] Comment on above: Performed By: #### M G, CMP #### [facility] [address] [address] [address] Doreen Betancourt Chloride [Moles/Vol] 106 mmol/L Normal 98-107 [facility] Comment on above: Performed By: #### M G, CMP #### [facility] [address] [address] [address] Doreen Betancourt CO2 [Moles/Vol] 28.6 mmol/L Normal 21.0-32.0 [facility] Comment on above: Performed By: #### M G, CMP #### [facility] [address] [address] [address] Doreen Betancourt Creatinine [Mass/Vol] 0.60 mg/dL Normal 0.55-1.02 [facility] Comment on above: Performed By: #### M G, CMP #### [facility] [address] [address] [address] Doreen Betancourt EGFR-AF IVORIAN >60 Normal >=60 [facility] Comment on above: Performed By: #### M G, CMP #### [facility] [address] [address] [address] Doreen Betancourt EGFR-NON AF IVORIAN >60 Normal >=60 [facility] Comment on above: Performed By: #### M G, CMP #### [facility] [address] [address] [address] Doreen Betancourt Globulin (S) [Mass/Vol] 3.5 g/dL Normal [facility] Comment on above: Performed By: #### M G, CMP #### [facility] [address] [address] [address] Doreen Betancourt Glucose [Mass/Vol] 95 mg/dL Normal 74-106 [facility] Comment on above: Performed By: #### M G, CMP #### [facility] [address] [place] [address] Dr. Doreen Betancourt Potassium [Moles/Vol] 4.1 mmol/L Normal 3.5-5.1 [facility] Comment on above: Performed By: #### M G, CMP #### [facility] [address] [place] [address] Dr. Doreen Betancourt Protein [Mass/Vol] 6.9 g/dL Normal 6.4-8.2 [facility] Comment on above: Performed By: #### M G, CMP #### [facility] [address] [place] [address] Dr. Doreen Betancourt Sodium [Moles/Vol] 142 mmol/L Normal 136-145 [facility] Comment on above: Performed By: #### M G, CMP #### [facility] [address] [place] [address] Dr. Doreen Betancourt Urea nitrogen [Mass/Vol] 13.0 mg/dL Normal 7.0-18.0 [facility] Comment on above: Performed By: #### M G, CMP #### [facility] [address] [place] [address] Dr. Doreen Betancourt Urea nitrogen/Creatinine [Mass ratio] 21.7 mg/mg Normal [facility] Comment on above: Performed By: #### M G, CMP #### [facility] [address] [place] [address] Dr. Doreen Betancourt CBC W MANUAL DIFFon 08-16-19 23 ANISOCYTOSIS SLIGHT Normal [facility] Comment on above: Performed By: #### M G, CMP #### [facility] [address] [place] [address] Dr. Doreen Betancourt ATYPICAL LYMPH # Normal [facility] Comment on above: Performed By: #### M G, CMP #### [facility] [address] [place] [address] Dr. Doreen Betancourt ATYPICAL LYMPH % Normal [facility] Comment on above: Performed By: #### M G, CMP #### [facility] [address] [place] [address] Dr. Doreen Betancourt BAND # Normal 0.0-0.3 [facility] Comment on above: Performed By: #### M G, CMP #### [facility] [address] [place] [address] Dr. Doreen Betancourt BAND % Normal 0-5 [facility] Comment on above: Performed By: #### M G, CMP #### [facility] [address] [place] [address] Dr. Doreen Betancourt BASOM # 0.00 103/ul Normal 0.00-0.10 [facility] Comment on above: Performed By: #### M G, CMP #### [facility] [address] [place] [address] Dr. Doreen Betancourt BASOM % 0.0 % Critically low 0.2-2.0 [facility] Comment on above: Performed By: #### M G, CMP #### [facility] [address] [place] [address] Dr. Doreen Betancourt BLAST # Normal [facility] Comment on above: Performed By: #### M G, CMP #### [facility] [address] [place] [address] Dr. Doreen Betancourt BLAST % Normal [facility] Comment on above: Performed By: #### M G, CMP #### [facility] [address] [place] [address] Dr. Doreen Betancourt CORRECTED WBC Normal 4.0-11.0 [facility] Comment on above: Performed By: #### M G, CMP #### [facility] [address] [place] [address] Dr. Doreen Betancourt EOS # 0.00 103/ul Normal 0.00-0.70 [facility] Comment on above: Performed By: #### M G, CMP #### [facility] [address] [place] [address] Dr. Doreen Betancourt EOS% 0.0 % Critically low 0.9-7.0 [facility] Comment on above: Performed By: #### M G, CMP #### [facility] [address] [place] [address] Dr. Doreen Betancourt HCT 36.2 % Normal 36.0-48.0 [facility] Comment on above: Performed By: #### M G, CMP #### [facility] [address] [place] [address] Dr. Doreen Betancourt HGB 12.1 g/dl Normal 12.0-16.0 [facility] Comment on above: Performed By: #### M G, CMP #### [facility] [address] [place] [address] Dr. Doreen Betancourt LYMPHM # 2.08 103/ul Normal 1.20-3.80 [facility] Comment on above: Performed By: #### M G, CMP #### [facility] [address] [place] [address] Dr. Doreen Betancourt LYMPHM% 63.0 % Critically high 20.5-60.0 [facility] Comment on above: Performed By: #### M G, CMP #### [facility] [address] [place] [address] Dr. Doreen Betancourt MCH 33.0 pg Normal 26.7-34.0 [facility] Comment on above: Performed By: #### M G, CMP #### [facility] [address] [place] [address] Dr. Doreen Betancourt MCHC 33.4 g/dl Normal 29.9-35.2 [facility] Comment on above: Performed By: #### M G, CMP #### [facility] [address] [address] [address] Doreen Betancourt MCV 98.6 fL Normal 81.0-99.0 [facility] Comment on above: Performed By: #### M G, CMP #### [facility] [address] [place] [address] Dr. Doreen Betancourt METAMYELOCYTE # Normal [facility] Comment on above: Performed By: #### M G, CMP #### [facility] [address] [place] [address] Dr. Doreen Betancourt METAMYELOCYTE % Normal [facility] Comment on above: Performed By: #### M G, CMP #### [facility] [address] [place] [address] Dr. Doreen Betancourt MONOM# 0.33 103/ul Normal 0.30-0.80 [facility] Comment on above: Performed By: #### M G, CMP #### [facility] [address] [place] [address] Dr. Doreen Betancourt MONOM% 10.0 % Normal 1.7-12.0 [facility] Comment on above: Performed By: #### M G, CMP #### [facility] [address] [place] [address] Dr. Doreen Betancourt MPV 10.4 fL Normal 9.5-13.5 [facility] Comment on above: Performed By: #### M G, CMP #### [facility] [address] [place] [address] Dr. Doreen Betancourt MYELOCYTE # Normal [facility] Comment on above: Performed By: #### M G, CMP #### [facility] [address] [place] [address] Dr. Doreen Betancourt MYELOCYTE % Normal [facility] Comment on above: Performed By: #### M G, CMP #### [facility] [address] [place] [address] Dr. Doreen Betancourt NRBC Normal [facility] Comment on above: Performed By: #### M G, CMP #### [facility] [address] [address] [address] Doreen Betancourt PLT 92 103/ul Critically low 150-450 [facility] Comment on above: Performed By: #### M G, CMP #### [facility] [address] [place] [address] Dr. Doreen Betancourt RBC 3.67 106/ul Critically low 4.20-5.40 [facility] Comment on above: Performed By: #### M G, CMP #### [facility] [address] [place] [address] Dr. Doreen Betancourt RDW 17.8 % Critically high 11.0-15.0 [facility] Comment on above: Performed By: #### M G, CMP #### [facility] [address] [place] [address] Dr. Doreen Betancourt SEG # 0.89 103/ul Critically low 1.40-6.50 [facility] Comment on above: Performed By: #### M G, CMP #### [facility] [address] [place] [address] Dr. Doreen Betancourt SEG % 27.0 % Critically low 43.0-75.0 [facility] Comment on above: Performed By: #### M G, CMP #### [facility] [address] [place] [address] Dr. Doreen Betancourt WBC 3.3 103/ul Critically low 4.0-11.0 [facility] Comment on above: Performed By: #### M G, CMP #### [facility] [address] [place] [address] Dr. Doreen Betancourt MAGNESIUMon 08-16-2022 Magnesium [Mass/Vol] 2.1 mg/dL Normal 1.8-2.4 [facility] Comment on above: Performed By: #### C BC #### [facility] [address] [place] [address] Dr. Doreen Betancourt PROF 14(COMP METB)on 023 Albumin [Mass/Vol] 3.5 g/dL Normal 3.4-5.0 [facility] Comment on above: Performed By: #### C BC #### [facility] [address] [place] [address] Dr. Doreen Betancourt Albumin/Globulin [Mass ratio] 1.0 {ratio} Normal [facility] Comment on above: Performed By: #### C BC #### [facility] [address] [place] [address] Dr. Doreen Betancourt ALP [Catalytic activity/Vol] 131 U/L Critically high 46-116 [facility] Comment on above: Performed By: #### C BC #### [facility] [address] [place] [address] Dr. Doreen Betancourt ALT [Catalytic activity/Vol] 98 U/L Critically high 14-59 [facility] Comment on above: Performed By: #### C BC #### [facility] [address] [place] [address] Dr. Doreen Betancourt Anion gap [Moles/Vol] 12.3 mmol/L Normal [facility] Comment on above: Performed By: #### C BC #### [facility] [address] [place] [address] Dr. Doreen Betancourt AST [Catalytic activity/Vol] 78 U/L Critically high 15-37 [facility] Comment on above: Performed By: #### C BC #### [facility] [address] [place] [address] Dr. Doreen Betancourt Bilirubin [Mass/Vol] 0.3 mg/dL Normal 0.2-1.0 [facility] Comment on above: Performed By: #### C BC #### [facility] [address] [place] [address] Dr. Doreen Betancourt Calcium [Mass/Vol] 9.3 mg/dL Normal 8.5-10.1 [facility] Comment on above: Performed By: #### C BC #### [facility] [address] [place] [address] Dr. Dorene Betancourt Chloride [Moles/Vol] 104 mmol/L Normal 98-107 [facility] Comment on above: Performed By: #### C BC #### [facility] [address] [place] [address] Dr. Doreen Betancourt CO2 [Moles/Vol] 29.4 mmol/L Normal 21.0-32.0 [facility] Comment on above: Performed By: #### C BC #### [facility] [address] [place] [address] Dr. Doreen Betancourt Creatinine [Mass/Vol] 0.67 mg/dL Normal 0.55-1.02 [facility] Comment on above: Performed By: #### C BC #### [facility] [address] [place] [address] Dr. Doreen Betancourt EGFR-AF IVORIAN >60 Normal >=60 [facility] Comment on above: Performed By: #### C BC #### [facility] [address] [place] [address] Dr. Doreen Betancourt EGFR-NON AF IVORIAN >60 Normal >=60 [facility] Comment on above: Performed By: #### C BC #### [facility] [address] [place] [address] Dr. Doreen Betancourt Globulin (S) [Mass/Vol] 3.5 g/dL Normal [facility] Comment on above: Performed By: #### C BC #### [facility] [address] [place] [address] Dr. Doreen Betancourt Glucose [Mass/Vol] 100 mg/dL Normal 74-106 [facility] Comment on above: Performed By: #### C BC #### [facility] [address] [place] [address] Dr. Doreen Betancourt Potassium [Moles/Vol] 4.7 mmol/L Normal 3.5-5.1 [facility] Comment on above: Performed By: #### C BC #### [facility] [address] [place] [address] Dr. Doreen Betancourt Protein [Mass/Vol] 7.0 g/dL Normal 6.4-8.2 [facility] Comment on above: Performed By: #### C BC #### [facility] [address] [place] [address] Dr. Doreen Betancourt Sodium [Moles/Vol] 141 mmol/L Normal 136-145 [facility] Comment on above: Performed By: #### C BC #### [facility] [address] [place] [address] Dr. Doreen Betancourt Urea nitrogen [Mass/Vol] 13.0 mg/dL Normal 7.0-18.0 [facility] Comment on above: Performed By: #### C BC #### [facility] [address] [place] [address] Dr. Doreen Betancourt Urea nitrogen/Creatinine [Mass ratio] 19.4 mg/mg Normal [facility] Comment on above: Performed By: #### C BC #### [facility] [address] [place] [address] Dr. Doreen Betancourt CBC AUTO DIFFon 08-03-2022 BASO # 0.0 103/ul Normal 0.0-0.1 [facility] Comment on above: Performed By: #### M G, CMP #### [facility] [address] [place] [address] Dr. Doreen Betancourt Basophils/100 WBC (Bld) 0.6 % Normal 0.2-2.0 [facility] Comment on above: Performed By: #### M G, CMP #### [facility] [address] [place] [address] Dr. Doreen Betancourt EO # 0.0 103/ul Normal 0.0-0.7 [facility] Comment on above: Performed By: #### M G, CMP #### [facility] [address] [place] [address] Dr. Doreen Betancourt Eosinophils/100 WBC (Bld) 0.6 % Critically low 0.9-7.0 [facility] Comment on above: Performed By: #### M G, CMP #### [facility] [address] [place] [address] Dr. Doreen Betancourt Erythrocyte distribution width (RBC) [Ratio] 17.8 % Critically high 11.0-15.0 [facility] Comment on above: Performed By: #### M G, CMP #### [facility] [address] [place] [address] Dr. Doreen Betancourt Hematocrit (Bld) [Volume fraction] 36.1 % Normal 36.0-48.0 [facility] Comment on above: Performed By: #### M Salena, CMP #### [facility] [address] [place] [address] Dr. Doreen Betancourt Hemoglobin (Bld) [Mass/Vol] 12.6 g/dL Normal 12.0-16.0 [facility] Comment on above: Performed By: #### M G, CMP #### [facility] [address] [place] [address] Dr. Doreen Betancourt IG # 0.01 10e3/ul Normal 0.00-0.03 [facility] Comment on above: Performed By: #### M G, CMP #### [facility] [address] [place] [address] Dr. Doreen Betancourt IG % 0.3 % Normal 0.0-0.5 [facility] Comment on above: Performed By: #### M Salena, CMP #### [facility] [address] [place] [address] Dr. Doreen Betancourt LYMPH # 1.6 103/ul Normal 1.2-3.8 [facility] Comment on above: Performed By: #### Gay Martino, CMP #### [facility] [address] [place] [address] Dr. Doreen Betancourt Lymphocytes/100 WBC (Bld) 46.4 % Normal 20.5-60.0 [facility] Comment on above: Performed By: #### Gay Salena, CMP #### [facility] [address] [place] [address] Dr. Doreen Betancourt MANUAL DIFF REQ NO Normal [facility] Comment on above: Performed By: #### M G, CMP #### [facility] [address] [place] [address] Dr. Doreen Betancourt MCH (RBC) [Entitic mass] 32.1 pg Normal 26.7-34.0 [facility] Comment on above: Performed By: #### M G, CMP #### [facility] [address] [place] [address] Dr. Doreen Betancourt MCHC (RBC) [Mass/Vol] 34.9 g/dL Normal 29.9-35.2 [facility] Comment on above: Performed By: #### M G, CMP #### [facility] [address] [place] [address] Dr. Doreen Betancourt MCV (RBC) [Entitic vol] 91.9 fL Normal 81.0-99.0 [facility] Comment on above: Performed By: #### M G, CMP #### [facility] [address] [place] [address] Dr. Doreen Betancourt MONO # 0.3 103/ul Normal 0.3-0.8 [facility] Comment on above: Performed By: #### M G, CMP #### [facility] [address] [place] [address] Dr. Doreen Betancourt Monocytes/100 WBC (Bld) 9.7 % Normal 1.7-12.0 [facility] Comment on above: Performed By: #### M G, CMP #### [facility] [address] [place] [address] Dr. Doreen Betancourt NEUT # 1.5 103/ul Normal 1.4-6.5 [facility] Comment on above: Performed By: #### M G, CMP #### [facility] [address] [place] [address] Dr. Doreen Betancourt Neutrophils/100 WBC (Bld) 42.4 % Critically low 43.0-75.0 [facility] Comment on above: Performed By: #### M G, CMP #### [facility] [address] [place] [address] Dr. Doreen Betancourt Platelet mean volume (Bld) [Entitic vol] 11.1 fL Normal 9.5-13.5 [facility] Comment on above: Performed By: #### M G, CMP #### [facility] [address] [place] [address] Dr. Doreen Betancourt PLT 101 103/ul Critically low 150-450 [facility] Comment on above: Performed By: #### M G, CMP #### [facility] [address] [place] [address] Dr. Doreen Betancorut RBC 3.93 106/ul Critically low 4.20-5.40 [facility] Comment on above: Performed By: #### M G, CMP #### [facility] [address] [place] [address] Dr. Doreen Betancourt WBC 3.5 103/ul Critically low 4.0-11.0 [facility] Comment on above: Performed By: #### M G, CMP #### [facility] [address] [place] [address] Dr. Doreen Betancourt MAGNESIUMon 08-03-2022 Magnesium [Mass/Vol] 2.0 mg/dL Normal 1.8-2.4 [facility] Comment on above: Performed By: #### C MP, MG #### [facility] [address] [place] [address] Dr. Doreen Betancourt PROF 14(COMP METB)on 023 Albumin [Mass/Vol] 3.6 g/dL Normal 3.4-5.0 [facility] Comment on above: Performed By: #### C MP, MG #### [facility] [address] [place] [address] Dr. Doreen Betancourt Albumin/Globulin [Mass ratio] 1.0 {ratio} Normal [facility] Comment on above: Performed By: #### C MP, MG #### [facility] [address] [place] [address] Dr. Doreen Betancourt ALP [Catalytic activity/Vol] 120 U/L Critically high 46-116 [facility] Comment on above: Performed By: #### C MP, MG #### [facility] [address] [place] [address] Dr. Doreen Betancourt ALT [Catalytic activity/Vol] 80 U/L Critically high 14-59 [facility] Comment on above: Performed By: #### C MP, MG #### [facility] [address] [place] [address] Dr. Doreen Betancourt Anion gap [Moles/Vol] 10.7 mmol/L Normal [facility] Comment on above: Performed By: #### C MP, MG #### [facility] [address] [place] [address] Dr. Doreen Betancourt AST [Catalytic activity/Vol] 62 U/L Critically high 15-37 [facility] Comment on above: Performed By: #### C MP, MG #### [facility] [address] [place] [address] Dr. Doreen Betancourt Bilirubin [Mass/Vol] 0.4 mg/dL Normal 0.2-1.0 [facility] Comment on above: Performed By: #### C MP, MG #### [facility] [address] [place] [address] Dr. Doreen Betancourt Calcium [Mass/Vol] 9.6 mg/dL Normal 8.5-10.1 [facility] Comment on above: Performed By: #### C MP, MG #### [facility] [address] [place] [address] Dr. Doreen Betancourt Chloride [Moles/Vol] 106 mmol/L Normal 98-107 [facility] Comment on above: Performed By: #### C MP, MG #### [facility] [address] [place] [address] Dr. Doreen Betancourt CO2 [Moles/Vol] 29.5 mmol/L Normal 21.0-32.0 [facility] Comment on above: Performed By: #### C MP, MG #### [facility] [address] [place] [address] Dr. Doreen Betancourt Creatinine [Mass/Vol] 0.67 mg/dL Normal 0.55-1.02 [facility] Comment on above: Performed By: #### C MP, MG #### [facility] [address] [place] [address] Dr. Doreen Betancourt EGFR-AF IVORIAN >60 Normal >=60 [facility] Comment on above: Performed By: #### C MP, MG #### [facility] [address] [place] [address] Dr. Doreen Betancourt EGFR-NON AF IVORIAN >60 Normal >=60 [facility] Comment on above: Performed By: #### C MP, MG #### [facility] [address] [address] [address] Doreen Betancourt Globulin (S) [Mass/Vol] 3.5 g/dL Normal [facility] Comment on above: Performed By: #### C MP, MG #### [facility] [address] [place] [address] Dr. Doreen Betancourt Glucose [Mass/Vol] 128 mg/dL Critically high 74-106 [facility] Comment on above: Performed By: #### C MP, MG #### [facility] [address] [place] [address] Dr. Doreen Betancourt Potassium [Moles/Vol] 4.2 mmol/L Normal 3.5-5.1 [facility] Comment on above: Performed By: #### C MP, MG #### [facility] [address] [place] [address] Dr. Doreen Betancourt Protein [Mass/Vol] 7.1 g/dL Normal 6.4-8.2 [facility] Comment on above: Performed By: #### C MP, MG #### [facility] [address] [place] [address] Dr. Doreen Betancourt Sodium [Moles/Vol] 142 mmol/L Normal 136-145 [facility] Comment on above: Performed By: #### C MP, MG #### [facility] [address] [place] [address] Dr. Doreen Betancourt Urea nitrogen [Mass/Vol] 12.0 mg/dL Normal 7.0-18.0 [facility] Comment on above: Performed By: #### C MP, MG #### [facility] [address] [place] [address] Dr. Doreen Betancourt Urea nitrogen/Creatinine [Mass ratio] 17.9 mg/mg Normal [facility] Comment on above: Performed By: #### C MP, MG #### [facility] [address] [place] [address] Dr. Doreen Betancourt CEAon 07-21-2022 CEA 8.1 ng/mL Critically high 0.0-4.7 [facility] Comment on above: Result Comment: Nons mokers <3.9 Smokers <5.6 . [employer] Electrochemiluminescence Immunoassay (ECLIA) . Values obtained with different assay methods or kits cannot be used interchangeably. Results cannot be interpreted as absolute evidence of the presence or absence of malignant disease. Performed By: #### C VDTBH #### [facility] [address] [place] [address] Dr. Doreen Betancourt CBC AUTO DIFFon 07-20-2022 BASO # 0.0 103/ul Normal 0.0-0.1 [facility] Comment on above: Performed By: #### C VDTBH #### [facility] [address] [place] [address] Dr. Doreen Betancourt Basophils/100 WBC (Bld) 0.9 % Normal 0.2-2.0 [facility] Comment on above: Performed By: #### C VDTBH #### [facility] [address] [place] [address] Dr. Doreen Betancourt EO # 0.0 103/ul Normal 0.0-0.7 [facility] Comment on above: Performed By: #### C VDTBH #### [facility] [address] [place] [address] Dr. Doreen Betancourt Eosinophils/100 WBC (Bld) 0.6 % Critically low 0.9-7.0 [facility] Comment on above: Performed By: #### C VDTBH #### [facility] [address] [place] [address] Dr. Doreen Betancourt Erythrocyte distribution width (RBC) [Ratio] 17.2 % Critically high 11.0-15.0 [facility] Comment on above: Performed By: #### C VDTBH #### [facility] [address] [place] [address] Dr. Doreen Betancourt Hematocrit (Bld) [Volume fraction] 39.1 % Normal 36.0-48.0 [facility] Comment on above: Performed By: #### C VDTBH #### [facility] [address] [place] [address] Dr. Doreen Betancourt Hemoglobin (Bld) [Mass/Vol] 13.0 g/dL Normal 12.0-16.0 [facility] Comment on above: Performed By: #### C VDTBH #### [facility] [address] [place] [address] Dr. Doreen Betancourt IG # 0.00 10e3/ul Normal 0.00-0.03 [facility] Comment on above: Performed By: #### C VDTBH #### [facility] [address] [place] [address] Dr. Doreen Betancourt IG % 0.0 % Normal 0.0-0.5 [facility] Comment on above: Performed By: #### C VDTBH #### [facility] [address] [place] [address] Dr. Doreen Betancourt LYMPH # 2.0 103/ul Normal 1.2-3.8 [facility] Comment on above: Performed By: #### C VDTBH #### [facility] [address] [place] [address] Dr. Doreen Betancourt Lymphocytes/100 WBC (Bld) 42.1 % Normal 20.5-60.0 [facility] Comment on above: Performed By: #### C VDTBH #### [facility] [address] [place] [address] Dr. Doreen Betancourt MANUAL DIFF REQ NO Normal [facility] Comment on above: Performed By: #### C VDTBH #### [facility] [address] [place] [address] Dr. Doreen Betancourt MCH (RBC) [Entitic mass] 31.1 pg Normal 26.7-34.0 [facility] Comment on above: Performed By: #### C VDTBH #### [facility] [address] [place] [address] Dr. Doreen Betancourt MCHC (RBC) [Mass/Vol] 33.2 g/dL Normal 29.9-35.2 [facility] Comment on above: Performed By: #### C VDTBH #### [facility] [address] [place] [address] Dr. Doreen Betancourt MCV (RBC) [Entitic vol] 93.5 fL Normal 81.0-99.0 [facility] Comment on above: Performed By: #### C VDTBH #### [facility] [address] [place] [address] Dr. Doreen Betancourt MONO # 0.6 103/ul Normal 0.3-0.8 [facility] Comment on above: Performed By: #### C VDTBH #### [facility] [address] [place] [address] Dr. Doreen Betancourt Monocytes/100 WBC (Bld) 13.5 % Critically high 1.7-12.0 [facility] Comment on above: Performed By: #### C VDTBH #### [facility] [address] [place] [address] Dr. Doreen Betancourt NEUT # 2.0 103/ul Normal 1.4-6.5 [facility] Comment on above: Performed By: #### C VDTBH #### [facility] [address] [place] [address] Dr. Doreen Betancourt Neutrophils/100 WBC (Bld) 42.9 % Critically low 43.0-75.0 [facility] Comment on above: Performed By: #### C VDTBH #### [facility] [address] [place] [address] Dr. Doreen Betancourt Platelet mean volume (Bld) [Entitic vol] 10.2 fL Normal 9.5-13.5 [facility] Comment on above: Performed By: #### C VDTBH #### [facility] [address] [place] [address] Dr. Doreen Betancourt PLT 143 103/ul Critically low 150-450 [facility] Comment on above: Performed By: #### C VDTBH #### [facility] [address] [place] [address] Dr. Doreen Betancourt RBC 4.18 106/ul Critically low 4.20-5.40 [facility] Comment on above: Performed By: #### C VDTBH #### [facility] [address] [place] [address] Dr. Doreen Betancourt WBC 4.7 103/ul Normal 4.0-11.0 [facility] Comment on above: Performed By: #### C VDTBH #### [facility] [address] [place] [address] Dr. Doreen Betancourt MAGNESIUMon 07-20-2022 Magnesium [Mass/Vol] 2.2 mg/dL Normal 1.8-2.4 [facility] Comment on above: Performed By: #### M G, CMP #### [facility] [address] [place] [address] Dr. Doreen Betancourt PROF 14(COMP METB)on 023 Albumin [Mass/Vol] 3.8 g/dL Normal 3.4-5.0 [facility] Comment on above: Performed By: #### C BC #### [facility] [address] [place] [address] Dr. Doreen Betancourt Albumin/Globulin [Mass ratio] 1.0 {ratio} Normal [facility] Comment on above: Performed By: #### C BC #### [facility] [address] [place] [address] Dr. Doreen Betancourt ALP [Catalytic activity/Vol] 118 U/L Critically high 46-116 [facility] Comment on above: Performed By: #### C BC #### [facility] [address] [place] [address] Dr. Doreen Betancourt ALT [Catalytic activity/Vol] 57 U/L Normal 14-59 [facility] Comment on above: Performed By: #### C BC #### [facility] [address] [place] [address] Dr. Doreen Betancourt Anion gap [Moles/Vol] 13.4 mmol/L Normal [facility] Comment on above: Performed By: #### C BC #### [facility] [address] [place] [address] Dr. Doreen Betancourt AST [Catalytic activity/Vol] 40 U/L Critically high 15-37 [facility] Comment on above: Performed By: #### C BC #### [facility] [address] [place] [address] Dr. Doreen Betancourt Bilirubin [Mass/Vol] 0.4 mg/dL Normal 0.2-1.0 [facility] Comment on above: Performed By: #### C BC #### [facility] [address] [place] [address] Dr. Doreen Betancourt Calcium [Mass/Vol] 9.7 mg/dL Normal 8.5-10.1 [facility] Comment on above: Performed By: #### C BC #### [facility] [address] [place] [address] Dr. Doreen Betancourt Chloride [Moles/Vol] 103 mmol/L Normal 98-107 [facility] Comment on above: Performed By: #### C BC #### [facility] [address] [place] [address] Dr. Doreen Betancourt CO2 [Moles/Vol] 29.1 mmol/L Normal 21.0-32.0 [facility] Comment on above: Performed By: #### C BC #### [facility] [address] [place] [address] Dr. Doreen Betancourt Creatinine [Mass/Vol] 0.71 mg/dL Normal 0.55-1.02 [facility] Comment on above: Performed By: #### C BC #### [facility] [address] [place] [address] Dr. Doreen Betancourt EGFR-AF IVORIAN >60 Normal >=60 [facility] Comment on above: Performed By: #### C BC #### [facility] [address] [place] [address] Dr. Doreen Betancourt EGFR-NON AF IVORIAN >60 Normal >=60 [facility] Comment on above: Performed By: #### C BC #### [facility] [address] [place] [address] Dr. Doreen Betancourt Globulin (S) [Mass/Vol] 3.7 g/dL Normal [facility] Comment on above: Performed By: #### C BC #### [facility] [address] [place] [address] Dr. Doreen Betancourt Glucose [Mass/Vol] 106 mg/dL Normal 74-106 [facility] Comment on above: Performed By: #### C BC #### [facility] [address] [place], [place] [address] Dr. Doreen Betancourt Potassium [Moles/Vol] 4.5 mmol/L Normal 3.5-5.1 [facility] Comment on above: Performed By: #### C BC #### [facility] [address] [place], [place] [address] Dr. Doreen Betancourt Protein [Mass/Vol] 7.5 g/dL Normal 6.4-8.2 [facility] Comment on above: Performed By: #### C BC #### [facility] [address] [place], [place] [address] Dr. Doreen Betancourt Sodium [Moles/Vol] 141 mmol/L Normal 136-145 [facility] Comment on above: Performed By: #### C BC #### [facility] [address] [place], [place] [address] Dr. Doreen Betancourt Urea nitrogen [Mass/Vol] 15.0 mg/dL Normal 7.0-18.0 [facility] Comment on above: Performed By: #### C BC #### [facility] [address] [place], [place] [address] Dr. Doreen Betancourt Urea nitrogen/Creatinine [Mass ratio] 21.1 mg/mg Normal [facility] Comment on above: Performed By: #### C BC #### [facility] [address] [place], [place] [address] Dr. Doreen Betancourt Albumin [Mass/volume] in Ser um or PlasmaOrdered By: Isaías Jordan on 07-11-2022 Albumin [Mass/Vol] 3.8 g/dL 3.2-5.5 [facility] Creatinine and Glomerular fi ltration rate.predicted panel (S/P/Bld)Ordered By: Isaías Jordan on 07-11-2022 Creatinine [Mass/Vol] 0.64 mg/dL 0.44-1.03 [facility] Estimated glomerular filtrat ion rate (GFR) non- AmericanOrdered By: Isaías Jordan on 07-11-2022 GFR/1.73 sq M.predicted among non-blacks MDRD (S/P/Bld) [Vol rate/Area] > 60 mL/Min [facility] GFR/1.73 sq M.predicted among non-blacks MDRD (S/P/Bld) [Vol rate/Area] Estimated glomerular filtration rate (GFR) non- [facility] Globulin Calc (S) [Mass/Vol] Ordered By: Isaías Jordan on 07-11-2022 Globulin (S) [Mass/Vol] 2.8 g/dL [facility] - Chemistry and C hemistry - challengeOrdered By: Isaías Jordan on 07-11-2022 Magnesium [Mass/Vol] 2.2 mg/dL 1.6-2.6 [facility] No Panel InformationOrdered By: Isaías Jordan on 07-11-2022 Estimated GFR () > 60 mL/Min [facility] Comment on above: GFR estimated refere nce range: According to KDOQI guidelines, <60 ml/min/1.73m2 is sufficient to diagnose a patient with chronic kidney disease. Pharmacy Creatinine Clearance (Chem 97.[address] [facility] Protein [Mass/volume] in Ser um or PlasmaOrdered By: Isaías Jordan on 07-11-2022 Protein [Mass/Vol] 6.6 g/dL 6.1-7.9 [facility] Serum or plasma alanine villalpando otransferase measurement without P-5'-P (enzymatic activiOrdered By: Isaías Jordan on 07-11-2022 ALT No additional P-5'-P [Catalytic activity/Vol] 71 U/L 10-[address] [facility] Serum or plasma albumin/glob ulin mass ratioOrdered By: Isaías Jordan on 07-11-2022 Albumin/Globulin [Mass ratio] 1.4 {ratio} [facility] Serum or plasma alkaline joselito sphatase measurement (enzymatic activity/volume)Ordered By: Isaías Jordan on 07-11-2022 ALP [Catalytic activity/Vol] 72 U/L 32-[address] [facility] Serum or plasma anion gap de terminationOrdered By: Isaías Jordan on 07-11-2022 Anion gap [Moles/Vol] 9.7 mmol/L 6.0-15.0 [facility] Serum or plasma aspartate am inotransferase measurement (enzymatic activity/volume)Ordered By: Isaías Jordan on 07-11-2022 AST [Catalytic activity/Vol] 56 U/L 10-[address] [facility] Serum or plasma calcium idalmis urement (mass/volume)Ordered By: Isaías Jordan on 07-11-2022 Calcium [Mass/Vol] 9.1 mg/dL 8.2-10.2 [facility] Serum or plasma chloride jose surement (moles/volume)Ordered By: Isaías Jordan on 07-11-2022 Chloride [Moles/Vol] 103 mmol/L 95-114 [facility] Serum or plasma glucose idalmis urement (mass/volume)Ordered By: Isaías Jordan on 07-11-2022 Glucose [Mass/Vol] 81 mg/dL 70-100 [facility] Comment on above: ADA recommended refe rence rangeRandom Glucose Reference Range is dependent on time and content of last meal. Glucose of more than 200 mg/dL in a nonstressed, ambulatory subject supports the diagnosis of Diabetes Mellitus. Serum or plasma potassium me asurement (moles/volume)Ordered By: Isaías Jordan on 07-11-2022 Potassium [Moles/Vol] 4.1 mmol/L 3.5-5.1 [facility] Serum or plasma sodium measu rement (moles/volume)Ordered By: Isaías Jordan on 07-11-2022 Sodium [Moles/Vol] 134 mmol/L 136-146 [facility] Serum or plasma total biliru bin measurement (mass/volume)Ordered By: Isaías Jordan on 07-11-2022 Bilirubin [Mass/Vol] 0.8 mg/dL 0.3-1.2 [facility] Serum or plasma total carbon dioxide measurement (moles/volume)Ordered By: Isaías Jordan on 07-11-2022 CO2 [Moles/Vol] 25.4 mmol/L 22.0-30.0 [facility] Serum or plasma urea nitroge n measurement (mass/volume)Ordered By: Isaías Jordan on 07-11-2022 Urea nitrogen [Mass/Vol] 14 mg/dL 9-[address] [facility] Albumin [Mass/volume] in Ser um or PlasmaOrdered By: Isaías Jordan on 07-06-2022 Albumin [Mass/Vol] 4.2 g/dL 3.2-5.5 [facility] CBC AUTO DIFFon 07-06-2022 BASO # 0.0 103/ul Normal 0.0-0.1 [facility] Comment on above: Performed By: #### M G, CMP #### [facility] [address] [place] [address] Dr. Doreen Betancourt Basophils/100 WBC (Bld) 0.7 % Normal 0.2-2.0 [facility] Comment on above: Performed By: #### M G, CMP #### [facility] [address] [place] [address] Dr. Doreen Betancourt EO # 0.1 103/ul Normal 0.0-0.7 [facility] Comment on above: Performed By: #### M G, CMP #### [facility] [address] [place] [address] Dr. Doreen Betancourt Eosinophils/100 WBC (Bld) 1.1 % Normal 0.9-7.0 [facility] Comment on above: Performed By: #### M G, CMP #### [facility] [address] [place] [address] Dr. Doreen Betancourt Erythrocyte distribution width (RBC) [Ratio] 16.9 % Critically high 11.0-15.0 [facility] Comment on above: Performed By: #### M G, CMP #### [facility] [address] [place] [address] Dr. Doreen Betancourt Hematocrit (Bld) [Volume fraction] 38.9 % Normal 36.0-48.0 [facility] Comment on above: Performed By: #### M G, CMP #### [facility] [address] [place] [address] Dr. Doreen Betancourt Hemoglobin (Bld) [Mass/Vol] 14.2 g/dL Normal 12.0-16.0 [facility] Comment on above: Performed By: #### M G, CMP #### [facility] [address] [place] [address] Dr. Doreen Betancourt IG # 0.01 10e3/ul Normal 0.00-0.03 [facility] Comment on above: Performed By: #### M G, CMP #### [facility] [address] [place] [address] Dr. Doreen Betancourt IG % 0.2 % Normal 0.0-0.5 [facility] Comment on above: Performed By: #### M G, CMP #### [facility] [address] [place] [address] Dr. Doreen Betancourt LYMPH # 2.0 103/ul Normal 1.2-3.8 [facility] Comment on above: Performed By: #### M G, CMP #### [facility] [address] [place] [address] Dr. Doreen Betancourt Lymphocytes/100 WBC (Bld) 43.2 % Normal 20.5-60.0 [facility] Comment on above: Performed By: #### M G, CMP #### [facility] [address] [place] [address] Dr. Doreen Betancourt MANUAL DIFF REQ NO Normal [facility] Comment on above: Performed By: #### M G, CMP #### [facility] [address] [place] [address] Dr. Doreen Betancourt MCH (RBC) [Entitic mass] 34.5 pg Critically high 26.7-34.0 [facility] Comment on above: Performed By: #### M G, CMP #### [facility] [address] [place] [address] Dr. Doreen Betancourt MCHC (RBC) [Mass/Vol] 36.5 g/dL Critically high 29.9-35.2 [facility] Comment on above: Performed By: #### M G, CMP #### [facility] [address] [place] [address] Dr. Doreen Betancourt MCV (RBC) [Entitic vol] 94.6 fL Normal 81.0-99.0 [facility] Comment on above: Performed By: #### M G, CMP #### [facility] [address] [address] [address] Doreen Betancourt MONO # 0.4 103/ul Normal 0.3-0.8 [facility] Comment on above: Performed By: #### M G, CMP #### [facility] [address] [place] [address] Dr. Doreen Betancourt Monocytes/100 WBC (Bld) 9.6 % Normal 1.7-12.0 [facility] Comment on above: Performed By: #### M G, CMP #### [facility] [address] [place] [address] Dr. Doreen Betancourt NEUT # 2.1 103/ul Normal 1.4-6.5 [facility] Comment on above: Performed By: #### M G, CMP #### [facility] [facility] [address] [place] [address] Dr. Doreen Betancourt Neutrophils/100 WBC (Bld) 45.2 % Normal 43.0-75.0 [facility] Comment on above: Performed By: #### M G, CMP #### [facility] [address] [place] [address] Dr. Doreen Betancourt Platelet mean volume (Bld) [Entitic vol] 9.8 fL Normal 9.5-13.5 [facility] Comment on above: Performed By: #### M G, CMP #### [facility] [address] [place] [address] Dr. Doreen Betancourt PLT 155 103/ul Normal 150-450 [facility] Comment on above: Performed By: #### M G, CMP #### [facility] [address] [place] [address] Dr. Doreen Betancourt RBC 4.11 106/ul Critically low 4.20-5.40 [facility] Comment on above: Performed By: #### M G, CMP #### [facility] [address] [place] [address] Dr. Doreen Betancourt WBC 4.6 103/ul Normal 4.0-11.0 [facility] Comment on above: Performed By: #### M G, CMP #### [facility] [address] [address] [address] Doreen Betancourt Creatinine and Glomerular fi ltration rate.predicted panel (S/P/Bld)Ordered By: Isaías Jordan on 07-06-2022 Creatinine [Mass/Vol] 0.43 mg/dL 0.44-1.03 [facility] Estimated glomerular filtrat ion rate (GFR) non- AmericanOrdered By: Iasías Jordan on 07-06-2022 GFR/1.73 sq M.predicted among non-blacks MDRD (S/P/Bld) [Vol rate/Area] > 60 mL/Min [facility] Globulin Calc (S) [Mass/Vol] Ordered By: Isaías Jordan on 07-06-2022 Globulin (S) [Mass/Vol] 2.6 g/dL [facility] - Chemistry and C hemistry - challengeOrdered By: Isaías Jordan on 07-06-2022 Magnesium [Mass/Vol] 2.8 mg/dL 1.6-2.6 [facility] MAGNESIUMon 07-06-2022 Magnesium [Mass/Vol] 2.0 mg/dL Normal 1.8-2.4 [facility] Comment on above: Performed By: #### C BC #### [facility] [address] [address] [address] Doreen Betancourt No Panel InformationOrdered By: Isaías Jordan on 07-06-2022 Estimated GFR () > 60 mL/Min [facility] Comment on above: GFR estimated refere nce range: According to KDOQI guidelines, <60 ml/min/1.73m2 is sufficient to diagnose a patient with chronic kidney disease. Pharmacy Creatinine Clearance (Chem N/A [facility] PROF 14(COMP METB)on 022 Albumin [Mass/Vol] 4.2 g/dL Normal 3.4-5.0 [facility] Comment on above: Result Comment: [place] [facility] Performed By: #### C BC #### [facility] [address] [address] [address] Doreen Betancourt Albumin/Globulin [Mass ratio] 1.6 {ratio} Normal [facility] Comment on above: Performed By: #### C BC #### [facility] [address] [address] [address] Doreen Betancourt ALP [Catalytic activity/Vol] 102 U/L Normal 46-116 [facility] Comment on above: Result Comment: pref [place] [facility]ug[place] Performed By: #### C BC #### [facility] [address] [address] [address] Doreen Betancourt ALT [Catalytic activity/Vol] 38 U/L Normal 14-59 [facility] Comment on above: Result Comment: pref [place] [facility]ug[place] Performed By: #### C BC #### [facility] [address] [place] [address] Dr. Doreen Betancourt Anion gap [Moles/Vol] 11.9 mmol/L Normal [facility] Comment on above: Performed By: #### C BC #### [facility] [address] [address] [address] Doreen Betancourt AST [Catalytic activity/Vol] 49 U/L Critically high 15-37 [facility] Comment on above: Result Comment: pref [place] [facility]ug[place] Performed By: #### C BC #### [facility] [address] [place] [address] Dr. Doreen Betancourt Bilirubin [Mass/Vol] 0.7 mg/dL Normal 0.2-1.0 [facility] Comment on above: Result Comment: pref [place] [facility]fuged [place] Performed By: #### C BC #### [facility] [address] [place] [address] Dr. Doreen Betancourt Calcium [Mass/Vol] 9.5 mg/dL Normal 8.5-10.1 [facility] Comment on above: Result Comment: pref [place] [facility]fuged [place] Performed By: #### C BC #### [facility] [address] [place] [address] Dr. Doreen Betancourt Chloride [Moles/Vol] 101 mmol/L Normal 98-107 [facility] Comment on above: Result Comment: pref [place] [facility]fuged [place] Performed By: #### C BC #### [facility] [address] [place] [address] Dr. Doreen Betancourt CO2 [Moles/Vol] 25.4 mmol/L Normal 21.0-32.0 [facility] Comment on above: Result Comment: pref [place] [facility]ug[place] Performed By: #### C BC #### [facility] [address] [place] [address] Dr. Doreen Betancourt Creatinine [Mass/Vol] 0.43 mg/dL Critically low 0.55-1.02 [facility] Comment on above: Result Comment: pref [place] [facility]fuged [place] Performed By: #### C BC #### [facility] [address] [place] [address] Dr. Doreen Betancourt EGFR-AF IVORIAN >60 Normal >=60 [facility] Comment on above: Performed By: #### C BC #### [facility] [address] [place] [address] Dr. Doreen Betancourt EGFR-NON AF IVORIAN >60 Normal >=60 [facility] Comment on above: Performed By: #### C BC #### [facility] [address] [place] [address] Dr. Doreen Betancourt Globulin (S) [Mass/Vol] 2.6 g/dL Normal [facility] Comment on above: Performed By: #### C BC #### [facility] [address] [place] [address] Dr. Doreen Betancourt Glucose [Mass/Vol] 102 mg/dL Normal 74-106 [facility] Comment on above: Result Comment: pref [place] [facility]fuged [place] Performed By: #### C BC #### [facility] [address] [place] [address] Dr. Doreen Betancourt Potassium [Moles/Vol] 5.3 mmol/L Critically high 3.5-5.1 [facility] Comment on above: Result Comment: pref [place] [facility] Performed By: #### C BC #### [facility] [address] [address] [address] Doreen Betancourt Protein [Mass/Vol] 6.8 g/dL Normal 6.4-8.2 [facility] Comment on above: Result Comment: pref [place] [facility] Performed By: #### C BC #### [facility] [address] [address] [address] Doreen Betancourt Sodium [Moles/Vol] 133 mmol/L Critically low 136-145 [facility] Comment on above: Result Comment: pref [place] [facility]ed [place] Performed By: #### C BC #### [facility] [address] [address] [address] Doreen Betancourt Urea nitrogen [Mass/Vol] 18.0 mg/dL Normal 7.0-18.0 [facility] Comment on above: Result Comment: pref [place] [facility] Performed By: #### C BC #### [facility] [address] [address] [address] Doreen Betancourt Urea nitrogen/Creatinine [Mass ratio] 41.6 mg/mg Normal [facility] Comment on above: Performed By: #### C BC #### [facility] [address] [address] [address] Doreen Betancourt Protein [Mass/volume] in Ser um or PlasmaOrdered By: Isaías Jordan on 07-06-2022 Protein [Mass/Vol] 6.8 g/dL 6.1-7.9 [facility] Serum or plasma alanine villalpando otransferase measurement without P-5'-P (enzymatic activiOrdered By: Isaías Jordan on 07-06-2022 ALT No additional P-5'-P [Catalytic activity/Vol] 38 U/L 10-[address] [facility] Serum or plasma albumin/glob ulin mass ratioOrdered By: Isaías Jordan on 07-06-2022 Albumin/Globulin [Mass ratio] 1.6 {ratio} [facility] Serum or plasma alkaline joselito sphatase measurement (enzymatic activity/volume)Ordered By: Isaías Jordan on 07-06-2022 ALP [Catalytic activity/Vol] 102 U/L 32-[address] [facility] Serum or plasma anion gap de terminationOrdered By: Isaías Jordan on 07-06-2022 Anion gap [Moles/Vol] 11.9 mmol/L 6.0-15.0 [facility] Serum or plasma aspartate am inotransferase measurement (enzymatic activity/volume)Ordered By: Isaías Jordan on 07-06-2022 AST [Catalytic activity/Vol] 49 U/L 10- [facility] Serum or plasma calcium idalmis urement (mass/volume)Ordered By: Isaías Jordan on 07-06-2022 Calcium [Mass/Vol] 9.5 mg/dL 8.2-10.2 [facility] Serum or plasma chloride jose surement (moles/volume)Ordered By: Isaías Jordan on 07-06-2022 Chloride [Moles/Vol] 101 mmol/L 95-114 [facility] Serum or plasma glucose idalmis urement (mass/volume)Ordered By: Isaías Jordan on 07-06-2022 Glucose [Mass/Vol] 102 mg/dL 70-100 [facility] Comment on above: ADA recommended refe rence rangeRandom Glucose Reference Range is dependent on time and content of last meal. Glucose of more than 200 mg/dL in a nonstressed, ambulatory subject supports the diagnosis of Diabetes Mellitus. Serum or plasma potassium me asurement (moles/volume)Ordered By: Isaías Jordan on 07-06-2022 Potassium [Moles/Vol] 5.3 mmol/L 3.5-5.1 [facility] Serum or plasma sodium measu rement (moles/volume)Ordered By: Isaías Jordan on 07-06-2022 Sodium [Moles/Vol] 133 mmol/L 136-146 [facility] Serum or plasma total biliru bin measurement (mass/volume)Ordered By: Isaías Jordan on 07-06-2022 Bilirubin [Mass/Vol] 0.7 mg/dL 0.3-1.2 [facility] Serum or plasma total carbon dioxide measurement (moles/volume)Ordered By: Isaías Jordan on 07-06-2022 CO2 [Moles/Vol] 25.4 mmol/L 22.0-30.0 [facility] Serum or plasma urea nitroge n measurement (mass/volume)Ordered By: Isaías Jordan on 07-06-2022 Urea nitrogen [Mass/Vol] 18 mg/dL 03-[address] [facility] CBC AUTO DIFFon 06-22-2022 BASO # 0.0 103/ul Normal 0.0-0.1 [facility] Comment on above: Performed By: #### C BC #### [facility] [address] [address] [address] Doreen Betancourt Basophils/100 WBC (Bld) 0.5 % Normal 0.2-2.0 [facility] Comment on above: Performed By: #### C BC #### [facility] [address] [address] [address] Doreen Betancourt EO # 0.1 103/ul Normal 0.0-0.7 [facility] Comment on above: Performed By: #### C BC #### [facility] [address] [address] [address] Doreen Betancourt Eosinophils/100 WBC (Bld) 1.3 % Normal 0.9-7.0 [facility] Comment on above: Performed By: #### C BC #### [facility] [address] [address] [address] Doreen Betancourt Erythrocyte distribution width (RBC) [Ratio] 15.3 % Critically high 11.0-15.0 [facility] Comment on above: Performed By: #### C BC #### [facility] [address] [address] [address] Doreen Betancourt Hematocrit (Bld) [Volume fraction] 38.7 % Normal 36.0-48.0 [facility] Comment on above: Performed By: #### C BC #### [facility] [address] [address] [address] Doreen Betancourt Hemoglobin (Bld) [Mass/Vol] 12.5 g/dL Normal 12.0-16.0 [facility] Comment on above: Performed By: #### C BC #### [facility] [address] [place] [address] Dr. Doreen Betancourt IG # 0.01 10e3/ul Normal 0.00-0.03 [facility] Comment on above: Performed By: #### C BC #### [facility] [address] [place] [address] Dr. Doreen Betancourt IG % 0.3 % Normal 0.0-0.5 [facility] Comment on above: Performed By: #### C BC #### [facility] [address] [place] [address] Dr. Doreen Betancourt LYMPH # 1.8 103/ul Normal 1.2-3.8 [facility] Comment on above: Performed By: #### C BC #### [facility] [address] [place] [address] Dr. Doreen Betancourt Lymphocytes/100 WBC (Bld) 46.0 % Normal 20.5-60.0 [facility] Comment on above: Performed By: #### C BC #### [facility] [address] [place] [address] Dr. Doreen Betancourt MANUAL DIFF REQ NO Normal [facility] Comment on above: Performed By: #### C BC #### [facility] [address] [place] [address] Dr. Doreen Betancourt MCH (RBC) [Entitic mass] 30.0 pg Normal 26.7-34.0 [facility] Comment on above: Performed By: #### C BC #### [facility] [address] [place] [address] Dr. Doreen Betancourt MCHC (RBC) [Mass/Vol] 32.3 g/dL Normal 29.9-35.2 [facility] Comment on above: Performed By: #### C BC #### [facility] [address] [place] [address] Dr. Doreen Betancourt MCV (RBC) [Entitic vol] 93.0 fL Normal 81.0-99.0 [facility] Comment on above: Performed By: #### C BC #### [facility] [address] [place] [address] Dr. Doreen Betancourt MONO # 0.4 103/ul Normal 0.3-0.8 [facility] Comment on above: Performed By: #### C BC #### [facility] [address] [place] [address] Dr. Doreen Betancourt Monocytes/100 WBC (Bld) 9.5 % Normal 1.7-12.0 [facility] Comment on above: Performed By: #### C BC #### [facility] [address] [place] [address] Dr. Doreen Betancourt NEUT # 1.7 103/ul Normal 1.4-6.5 [facility] Comment on above: Performed By: #### C BC #### [facility] [address] [place] [address] Dr. Doreen Betancourt Neutrophils/100 WBC (Bld) 42.4 % Critically low 43.0-75.0 [facility] Comment on above: Performed By: #### C BC #### [facility] [address] [place] [address] Dr. Doreen Betancourt Platelet mean volume (Bld) [Entitic vol] 9.9 fL Normal 9.5-13.5 [facility] Comment on above: Performed By: #### C BC #### [facility] [address] [place] [address] Dr. Doreen Betancourt PLT 178 103/ul Normal 150-450 [facility] Comment on above: Performed By: #### C BC #### [facility] [address] [place] [address] Dr. Doreen Betancourt RBC 4.16 106/ul Critically low 4.20-5.40 [facility] Comment on above: Performed By: #### C BC #### [facility] [address] [place] [address] Dr. Doreen Betancourt WBC 4.0 103/ul Normal 4.0-11.0 [facility] Comment on above: Performed By: #### C BC #### [facility] [address] [place] [address] Dr. Doreen Betancourt MAGNESIUMon 06-22-2022 Magnesium [Mass/Vol] 1.9 mg/dL Normal 1.8-2.4 [facility] Comment on above: Performed By: #### M G, CMP #### [facility] [address] [place] [address] Dr. Doreen Betancourt PROF 14(COMP METB)on 022 Albumin [Mass/Vol] 3.7 g/dL Normal 3.4-5.0 [facility] Comment on above: Performed By: #### M G, CMP #### [facility] [address] [place] [address] Dr. Doreen Betancourt Albumin/Globulin [Mass ratio] 1.1 {ratio} Normal [facility] Comment on above: Performed By: #### M G, CMP #### [facility] [address] [place] [address] Dr. Doreen Betancourt ALP [Catalytic activity/Vol] 125 U/L Critically high 46-116 [facility] Comment on above: Performed By: #### Gay G, CMP #### [facility] [address] [place] [address] Dr. Doreen Betancourt ALT [Catalytic activity/Vol] 16 U/L Normal 14-59 [facility] Comment on above: Performed By: #### M G, CMP #### [facility] [address] [place] [address] Dr. Doreen Betancourt Anion gap [Moles/Vol] 8.8 mmol/L Normal [facility] Comment on above: Performed By: #### M G, CMP #### [facility] [address] [place] [address] Dr. Doreen Betancourt AST [Catalytic activity/Vol] 5 U/L Critically low 15-37 [facility] Comment on above: Performed By: #### M G, CMP #### [facility] [address] [place] [address] Dr. Doreen Betancourt Bilirubin [Mass/Vol] 0.3 mg/dL Normal 0.2-1.0 [facility] Comment on above: Performed By: #### M G, CMP #### [facility] [address] [place] [address] Dr. Doreen Betancourt Calcium [Mass/Vol] 8.8 mg/dL Normal 8.5-10.1 [facility] Comment on above: Performed By: #### M G, CMP #### [facility] [address] [place] [address] Dr. Doreen Betancourt Chloride [Moles/Vol] 104 mmol/L Normal 98-107 [facility] Comment on above: Performed By: #### M G, CMP #### [facility] [address] [place] [address] Dr. Droeen Betancourt CO2 [Moles/Vol] 29.5 mmol/L Normal 21.0-32.0 [facility] Comment on above: Performed By: #### M G, CMP #### [facility] [address] [place] [address] Dr. Doreen Betancourt Creatinine [Mass/Vol] 0.75 mg/dL Normal 0.55-1.02 [facility] Comment on above: Performed By: #### Gay G, CMP #### [facility] [address] [place] [address] Dr. Doreen Betancourt EGFR-AF IVORIAN >60 Normal >=60 [facility] Comment on above: Performed By: #### M G, CMP #### [facility] [address] [place] [address] Dr. Doreen Betancourt EGFR-NON AF IVORIAN >60 Normal >=60 [facility] Comment on above: Performed By: #### M G, CMP #### [facility] [address] [place] [address] Dr. Doreen Betancourt Globulin (S) [Mass/Vol] 3.3 g/dL Normal [facility] Comment on above: Performed By: #### M G, CMP #### [facility] [address] [place] [address] Dr. Doreen Betancourt Glucose [Mass/Vol] 110 mg/dL Critically high 74-106 [facility] Comment on above: Performed By: #### M G, CMP #### [facility] [address] [place] [address] Dr. Doreen Betancourt Potassium [Moles/Vol] 4.3 mmol/L Normal 3.5-5.1 [facility] Comment on above: Performed By: #### M G, CMP #### [facility] [address] [place] [address] Dr. Doreen Betancourt Protein [Mass/Vol] 7.0 g/dL Normal 6.4-8.2 [facility] Comment on above: Performed By: #### M G, CMP #### [facility] [address] [place] [address] Dr. Doreen Betancourt Sodium [Moles/Vol] 138 mmol/L Normal 136-145 [facility] Comment on above: Performed By: #### M G, CMP #### [facility] [address] [place] [address] Dr. Doreen Betancourt Urea nitrogen [Mass/Vol] 11.0 mg/dL Normal 7.0-18.0 [facility] Comment on above: Performed By: #### M G, CMP #### [facility] [address] [place] [address] Dr. Doreen Betancourt Urea nitrogen/Creatinine [Mass ratio] 14.7 mg/mg Normal [facility] Comment on above: Performed By: #### M G, CMP #### [facility] [address] [place] [address] Dr. Doreen Betancourt CBC AUTO DIFFon 06-08-2022 BASO # 0.0 103/ul Normal 0.0-0.1 [facility] Comment on above: Performed By: #### M G, CMP #### [facility] [address] [place] [address] Dr. Doreen Betancourt Basophils/100 WBC (Bld) 0.8 % Normal 0.2-2.0 [facility] Comment on above: Performed By: #### M G, CMP #### [facility] [address] [place] [address] Dr. Doreen Betancourt EO # 0.1 103/ul Normal 0.0-0.7 [facility] Comment on above: Performed By: #### M G, CMP #### [facility] [address] [place] [address] Dr. Doreen Betancourt Eosinophils/100 WBC (Bld) 2.3 % Normal 0.9-7.0 [facility] Comment on above: Performed By: #### M G, CMP #### [facility] [address] [place] [address] Dr. Doreen Betancourt Erythrocyte distribution width (RBC) [Ratio] 14.5 % Normal 11.0-15.0 [facility] Comment on above: Performed By: #### M G, CMP #### [facility] [address] [place] [address] Dr. Doreen Betancourt Hematocrit (Bld) [Volume fraction] 38.8 % Normal 36.0-48.0 [facility] Comment on above: Performed By: #### M G, CMP #### [facility] [address] [place] [address] Dr. Doreen Betancourt Hemoglobin (Bld) [Mass/Vol] 12.6 g/dL Normal 12.0-16.0 [facility] Comment on above: Performed By: #### M G, CMP #### [facility] [address] [place] [address] Dr. Doreen Betancourt IG # 0.00 10e3/ul Normal 0.00-0.03 [facility] Comment on above: Performed By: #### M G, CMP #### [facility] [address] [place] [address] Dr. Doreen Betancourt IG % 0.0 % Normal 0.0-0.5 [facility] Comment on above: Performed By: #### M G, CMP #### [facility] [address] [place] [address] Dr. Doreen Betancourt LYMPH # 1.9 103/ul Normal 1.2-3.8 [facility] Comment on above: Performed By: #### M G, CMP #### [facility] [address] [place] [address] Dr. Doreen Betancourt Lymphocytes/100 WBC (Bld) 46.7 % Normal 20.5-60.0 [facility] Comment on above: Performed By: #### M G, CMP #### [facility] [address] [place] [address] Dr. Doreen Betancourt MANUAL DIFF REQ NO Normal [facility] Comment on above: Performed By: #### M G, CMP #### [facility] [address] [place] [address] Dr. Doreen Betancourt MCH (RBC) [Entitic mass] 30.3 pg Normal 26.7-34.0 [facility] Comment on above: Performed By: #### M G, CMP #### [facility] [address] [place] [address] Dr. Doreen Betancourt MCHC (RBC) [Mass/Vol] 32.5 g/dL Normal 29.9-35.2 [facility] Comment on above: Performed By: #### M G, CMP #### [facility] [address] [place] [address] Dr. Doreen Betancourt MCV (RBC) [Entitic vol] 93.3 fL Normal 81.0-99.0 [facility] Comment on above: Performed By: #### M G, CMP #### [facility] [address] [place] [address] Dr. Doreen Betancourt MONO # 0.4 103/ul Normal 0.3-0.8 [facility] Comment on above: Performed By: #### M G, CMP #### [facility] [address] [place] [address] Dr. Doreen Betancourt Monocytes/100 WBC (Bld) 11.1 % Normal 1.7-12.0 [facility] Comment on above: Performed By: #### M G, CMP #### [facility] [address] [place] [address] Dr. Doreen Betancourt NEUT # 1.6 103/ul Normal 1.4-6.5 [facility] Comment on above: Performed By: #### M G, CMP #### [facility] [address] [place] [address] Dr. Doreen Betancourt Neutrophils/100 WBC (Bld) 39.1 % Critically low 43.0-75.0 [facility] Comment on above: Performed By: #### M G, CMP #### [facility] [address] [place] [address] Dr. Doreen Betancourt Platelet mean volume (Bld) [Entitic vol] 9.9 fL Normal 9.5-13.5 [facility] [facility] Comment on above: Performed By: #### M G, CMP #### [facility] [address] [place] [address] Dr. Doreen Betancourt PLT 220 103/ul Normal 150-450 [facility] Comment on above: Performed By: #### M G, CMP #### [facility] [address] [place] [address] Dr. Doreen Betancourt RBC 4.16 106/ul Critically low 4.20-5.40 [facility] Comment on above: Performed By: #### M G, CMP #### [facility] [address] [place] [address] Dr. Doreen Betancourt WBC 4.0 103/ul Normal 4.0-11.0 [facility] Comment on above: Performed By: #### M G, CMP #### [facility] [address] [place] [address] Dr. Doreen Betancourt MAGNESIUMon 06-08-2022 Magnesium [Mass/Vol] 2.2 mg/dL Normal 1.8-2.4 [facility] Comment on above: Performed By: #### C VDTBH #### [facility] [address] [place] [address] Dr. Doreen Betancourt PROF 14(COMP METB)on 022 Albumin [Mass/Vol] 3.9 g/dL Normal 3.4-5.0 [facility] Comment on above: Performed By: #### C VDTBH #### [facility] [address] [place] [address] Dr. Doreen Betancourt Albumin/Globulin [Mass ratio] 1.1 {ratio} Normal [facility] Comment on above: Performed By: #### C VDTBH #### [facility] [address] [place] [address] Dr. Doreen Betancourt ALP [Catalytic activity/Vol] 100 U/L Normal 46-116 [facility] Comment on above: Performed By: #### C VDTBH #### [facility] [address] [address] [address] Doreen Betancourt ALT [Catalytic activity/Vol] 19 U/L Normal 14-59 [facility] Comment on above: Performed By: #### C VDTBH #### [facility] [address] [address] [address] Doreen Betancourt Anion gap [Moles/Vol] 6.9 mmol/L Normal [facility] Comment on above: Performed By: #### C VDTBH #### [facility] [address] [address] [address] Doreen Betancourt AST [Catalytic activity/Vol] 14 U/L Critically low 15-37 [facility] Comment on above: Performed By: #### C VDTBH #### [facility] [address] [place] [address] Dr. Droeen Betancourt Bilirubin [Mass/Vol] 0.3 mg/dL Normal 0.2-1.0 [facility] Comment on above: Performed By: #### C VDTBH #### [facility] [address] [place] [address] Dr. Doreen Betancourt Calcium [Mass/Vol] 9.6 mg/dL Normal 8.5-10.1 [facility] Comment on above: Performed By: #### C VDTBH #### [facility] [address] [place] [address] Dr. Doreen Betancourt Chloride [Moles/Vol] 105 mmol/L Normal 98-107 [facility] Comment on above: Performed By: #### C VDTBH #### [facility] [address] [address] [address] Doreen Betancourt CO2 [Moles/Vol] 32.2 mmol/L Critically high 21.0-32.0 [facility] Comment on above: Performed By: #### C VDTBH #### [facility] [address] [place] [address] Dr. Doreen Betancourt Creatinine [Mass/Vol] 0.69 mg/dL Normal 0.55-1.02 [facility] Comment on above: Performed By: #### C VDTBH #### [facility] [address] [address] [address] Doreen Betancourt EGFR-AF IVORIAN >60 Normal >=60 [facility] Comment on above: Performed By: #### C VDTBH #### [facility] [address] [address] [address] Doreen Betancourt EGFR-NON AF IVORIAN >60 Normal >=60 [facility] Comment on above: Performed By: #### C VDTBH #### [facility] [address] [address] [address] Doreen Betancourt Globulin (S) [Mass/Vol] 3.6 g/dL Normal [facility] Comment on above: Performed By: #### C VDTBH #### [facility] [address] [place] [address] Dr. Doreen Betancourt Glucose [Mass/Vol] 103 mg/dL Normal 74-106 [facility] Comment on above: Performed By: #### C VDTBH #### [facility] [address] [place] [address] Dr. Doreen Betancourt Potassium [Moles/Vol] 5.1 mmol/L Normal 3.5-5.1 [facility] Comment on above: Performed By: #### C VDTBH #### [facility] [address] [place] [address] Dr. Doreen Betancourt Protein [Mass/Vol] 7.5 g/dL Normal 6.4-8.2 [facility] Comment on above: Performed By: #### C VDTBH #### [facility] [address] [place] [address] Dr. Doreen Betancourt Sodium [Moles/Vol] 139 mmol/L Normal 136-145 [facility] Comment on above: Performed By: #### C VDTBH #### [facility] [address] [place] [address] Dr. Doreen Betancourt Urea nitrogen [Mass/Vol] 13.0 mg/dL Normal 7.0-18.0 [facility] Comment on above: Performed By: #### C VDTBH #### [facility] [address] [place] [address] Dr. Doreen Betancourt Urea nitrogen/Creatinine [Mass ratio] 18.8 mg/mg Normal [facility] Comment on above: Performed By: #### C VDTBH #### [facility] [address] [place] [address] Dr. Doreen Betancourt CBC AUTO DIFFon 06-01-2022 BASO # 0.0 103/ul Normal 0.0-0.1 [facility] Comment on above: Performed By: #### C BC #### [facility] [address] [place] [address] Dr. Doreen Betancourt Basophils/100 WBC (Bld) 0.7 % Normal 0.2-2.0 [facility] Comment on above: Performed By: #### C BC #### [facility] [address] [place] [address] Dr. Doreen Betancourt EO # 0.1 103/ul Normal 0.0-0.7 [facility] Comment on above: Performed By: #### C BC #### [facility] [address] [place] [address] Dr. Doreen Betancourt Eosinophils/100 WBC (Bld) 2.0 % Normal 0.9-7.0 [facility] Comment on above: Performed By: #### C BC #### [facility] [address] [place] [address] Dr. Doreen Betancourt Erythrocyte distribution width (RBC) [Ratio] 13.9 % Normal 11.0-15.0 [facility] Comment on above: Performed By: #### C BC #### [facility] [address] [place] [address] Dr. Doreen Betancourt Hematocrit (Bld) [Volume fraction] 41.2 % Normal 36.0-48.0 [facility] Comment on above: Performed By: #### C BC #### [facility] [address] [place] [address] Dr. Doreen Betancourt Hemoglobin (Bld) [Mass/Vol] 13.2 g/dL Normal 12.0-16.0 [facility] Comment on above: Performed By: #### C BC #### [facility] [address] [place] [address] Dr. Doreen Betancourt IG # 0.01 10e3/ul Normal 0.00-0.03 [facility] Comment on above: Performed By: #### C BC #### [facility] [address] [place] [address] Dr. Doreen Betancourt IG % 0.2 % Normal 0.0-0.5 [facility] Comment on above: Performed By: #### C BC #### [facility] [address] [place] [address] Dr. Doreen Betancourt LYMPH # 1.9 103/ul Normal 1.2-3.8 [facility] Comment on above: Performed By: #### C BC #### [facility] [address] [place] [address] Dr. Doreen Betancourt Lymphocytes/100 WBC (Bld) 41.0 % Normal 20.5-60.0 [facility] Comment on above: Performed By: #### C BC #### [facility] [address] [place] [address] Dr. Doreen Betancourt MANUAL DIFF REQ NO Normal [facility] Comment on above: Performed By: #### C BC #### [facility] [address] [place] [address] Dr. Doreen Betancourt MCH (RBC) [Entitic mass] 29.3 pg Normal 26.7-34.0 [facility] Comment on above: Performed By: #### C BC #### [facility] [address] [place] [address] Dr. Doreen Betancourt MCHC (RBC) [Mass/Vol] 32.0 g/dL Normal 29.9-35.2 [facility] Comment on above: Performed By: #### C BC #### [facility] [address] [place] [address] Dr. Doreen Betancourt MCV (RBC) [Entitic vol] 91.6 fL Normal 81.0-99.0 [facility] Comment on above: Performed By: #### C BC #### [facility] [address] [place] [address] Dr. Doreen Betancourt MONO # 0.1 103/ul Critically low 0.3-0.8 [facility] Comment on above: Performed By: #### C BC #### [facility] [address] [place] [address] Dr. Doreen Betancourt Monocytes/100 WBC (Bld) 1.5 % Critically low 1.7-12.0 [facility] Comment on above: Performed By: #### C BC #### [facility] [address] [place] [address] Dr. Doreen Betancourt NEUT # 2.5 103/ul Normal 1.4-6.5 [facility] Comment on above: Performed By: #### C BC #### [facility] [address] [place] [address] Dr. Doreen Betancourt Neutrophils/100 WBC (Bld) 54.6 % Normal 43.0-75.0 [facility] Comment on above: Performed By: #### C BC #### [facility] [address] [place] [address] Dr. Doreen Betancourt Platelet mean volume (Bld) [Entitic vol] 10.5 fL Normal 9.5-13.5 [facility] Comment on above: Performed By: #### C BC #### [facility] [address] [place] [address] Dr. Doreen Betancourt PLT 270 103/ul Normal 150-450 [facility] Comment on above: Performed By: #### C BC #### [facility] [address] [place] [address] Dr. Doreen Betancourt RBC 4.50 106/ul Normal 4.20-5.40 [facility] Comment on above: Performed By: #### C BC #### [facility] [address] [place] [address] Dr. Doreen Betancourt WBC 4.6 103/ul Normal 4.0-11.0 [facility] Comment on above: Performed By: #### C BC #### [facility] [address] [place] [address] Dr. Doreen Betancourt PROF 14(COMP METB)on 022 Albumin [Mass/Vol] 3.9 g/dL Normal 3.4-5.0 [facility] Comment on above: Performed By: #### C BC #### [facility] [address] [place] [address] Dr. Doreen Betancourt Albumin/Globulin [Mass ratio] 1.0 {ratio} Normal [facility] Comment on above: Performed By: #### C BC #### [facility] [address] [place] [address] Dr. Doreen Betancourt ALP [Catalytic activity/Vol] 83 U/L Normal 46-116 [facility] Comment on above: Performed By: #### C BC #### [facility] [address] [place] [address] Dr. Doreen Betancourt ALT [Catalytic activity/Vol] 22 U/L Normal 14-59 [facility] Comment on above: Performed By: #### C BC #### [facility] [address] [place] [address] Dr. Doreen Betancourt Anion gap [Moles/Vol] 12.6 mmol/L Normal [facility] Comment on above: Performed By: #### C BC #### [facility] [address] [place] [address] Dr. Doreen Betancourt AST [Catalytic activity/Vol] 16 U/L Normal 15-37 [facility] Comment on above: Performed By: #### C BC #### [facility] [address] [place] [address] Dr. Doreen Betancourt Bilirubin [Mass/Vol] 0.6 mg/dL Normal 0.2-1.0 [facility] Comment on above: Performed By: #### C BC #### [facility] [address] [place] [address] Dr. Doreen Betancourt Calcium [Mass/Vol] 9.4 mg/dL Normal 8.5-10.1 [facility] Comment on above: Performed By: #### C BC #### [facility] [address] [place] [address] Dr. Doreen Betancourt Chloride [Moles/Vol] 101 mmol/L Normal 98-107 [facility] Comment on above: Performed By: #### C BC #### [facility] [address] [place] [address] Dr. Doreen Betancourt CO2 [Moles/Vol] 25.9 mmol/L Normal 21.0-32.0 [facility] Comment on above: Performed By: #### C BC #### [facility] [address] [place] [address] Dr. Doreen Betancourt Creatinine [Mass/Vol] 0.64 mg/dL Normal 0.55-1.02 [facility] Comment on above: Performed By: #### C BC #### [facility] [address] [place] [address] Dr. Doreen Betancourt EGFR-AF IVORIAN >60 Normal >=60 [facility] Comment on above: Performed By: #### C BC #### [facility] [address] [place] [address] Dr. Doreen Betancourt EGFR-NON AF IVORIAN >60 Normal >=60 [facility] Comment on above: Performed By: #### C BC #### [facility] [address] [place] [address] Dr. Doreen Betancourt Globulin (S) [Mass/Vol] 3.9 g/dL Normal [facility] Comment on above: Performed By: #### C BC #### [facility] [address] [place] [address] Dr. Doreen Betancourt Glucose [Mass/Vol] 135 mg/dL Critically high 74-106 [facility] Comment on above: Performed By: #### C BC #### [facility] [address] [place] [address] Dr. Doreen Betancourt Potassium [Moles/Vol] 4.5 mmol/L Normal 3.5-5.1 [facility] Comment on above: Performed By: #### C BC #### [facility] [address] [place] [address] Dr. Doreen Betancourt Protein [Mass/Vol] 7.8 g/dL Normal 6.4-8.2 [facility] Comment on above: Performed By: #### C BC #### [facility] [address] [place] [address] Dr. Doreen Betancourt Sodium [Moles/Vol] 135 mmol/L Critically low 136-145 [facility] Comment on above: Performed By: #### C BC #### [facility] [address] [place] [address] Dr. Doreen Betancourt Urea nitrogen [Mass/Vol] 15.0 mg/dL Normal 7.0-18.0 [facility] Comment on above: Performed By: #### C BC #### [facility] [address] [place] [address] Dr. Doreen Betancourt Urea nitrogen/Creatinine [Mass ratio] 23.4 mg/mg Normal [facility] Comment on above: Performed By: #### C BC #### [facility] [address] [place] [address] Dr. Doreen Betancourt CBC AUTO DIFFon 05-22-2022 BASO # 0.0 103/ul Normal 0.0-0.1 [facility] Comment on above: Performed By: #### C VDTBH #### [facility] [address] [place] [address] Dr. Doreen Betancourt Basophils/100 WBC (Bld) 0.8 % Normal 0.2-2.0 [facility] Comment on above: Performed By: #### C VDTBH #### [facility] [address] [place] [address] Dr. Doreen Betancourt EO # 0.1 103/ul Normal 0.0-0.7 [facility] Comment on above: Performed By: #### C VDTBH #### [facility] [address] [place] [address] Dr. Doreen Betancourt Eosinophils/100 WBC (Bld) 2.7 % Normal 0.9-7.0 [facility] Comment on above: Performed By: #### C VDTBH #### [facility] [address] [place] [address] Dr. Doreen Bteancourt Erythrocyte distribution width (RBC) [Ratio] 13.9 % Normal 11.0-15.0 [facility] Comment on above: Performed By: #### C VDTBH #### [facility] [address] [place] [address] Dr. Doreen Betancourt Hematocrit (Bld) [Volume fraction] 40.9 % Normal 36.0-48.0 [facility] Comment on above: Performed By: #### C VDTBH #### [facility] [address] [place] [address] Dr. Doreen Betancourt Hemoglobin (Bld) [Mass/Vol] 13.1 g/dL Normal 12.0-16.0 [facility] Comment on above: Performed By: #### C VDTBH #### [facility] [address] [place] [address] Dr. Doreen Betancourt IG # 0.01 10e3/ul Normal 0.00-0.03 [facility] Comment on above: Performed By: #### C VDTBH #### [facility] [address] [place] [address] Dr. Doreen Betancourt IG % 0.2 % Normal 0.0-0.5 [facility] Comment on above: Performed By: #### C VDTBH #### [facility] [address] [place] [address] Dr. Doreen Betancourt LYMPH # 1.9 103/ul Normal 1.2-3.8 [facility] Comment on above: Performed By: #### C VDTBH #### [facility] [address] [place] [address] Dr. Doreen Betancourt Lymphocytes/100 WBC (Bld) 39.1 % Normal 20.5-60.0 [facility] Comment on above: Performed By: #### C VDTBH #### [facility] [address] [place] [address] Dr. Doreen Betancourt MANUAL DIFF REQ NO Normal [facility] Comment on above: Performed By: #### C VDTBH #### [facility] [address] [place] [address] Dr. Doreen Betnacourt MCH (RBC) [Entitic mass] 29.6 pg Normal 26.7-34.0 [facility] Comment on above: Performed By: #### C VDTBH #### [facility] [address] [place] [address] Dr. Doreen Betancourt MCHC (RBC) [Mass/Vol] 32.0 g/dL Normal 29.9-35.2 [facility] Comment on above: Performed By: #### C VDTBH #### [facility] [address] [place] [address] Dr. Doreen Betancourt MCV (RBC) [Entitic vol] 92.3 fL Normal 81.0-99.0 [facility] Comment on above: Performed By: #### C VDTBH #### [facility] [address] [place] [address] Dr. Doreen Betancourt MONO # 0.4 103/ul Normal 0.3-0.8 [facility] Comment on above: Performed By: #### C VDTBH #### [facility] [address] [place] [address] Dr. Doreen Betancourt Monocytes/100 WBC (Bld) 7.6 % Normal 1.7-12.0 [facility] Comment on above: Performed By: #### C VDTBH #### [facility] [address] [place] [address] Dr. Doreen Betancourt NEUT # 2.4 103/ul Normal 1.4-6.5 [facility] Comment on above: Performed By: #### C VDTBH #### [facility] [address] [place] [address] Dr. Doreen Betancourt Neutrophils/100 WBC (Bld) 49.6 % Normal 43.0-75.0 [facility] Comment on above: Performed By: #### C VDTBH #### [facility] [address] [place] [address] Dr. Doreen Betancourt Platelet mean volume (Bld) [Entitic vol] 10.3 fL Normal 9.5-13.5 [facility] Comment on above: Performed By: #### C VDTBH #### [facility] [address] [place] [address] Dr. Doreen Betancourt PLT 274 103/ul Normal 150-450 [facility] Comment on above: Performed By: #### C VDTBH #### [facility] [address] [place] [address] Dr. Doreen Betancourt RBC 4.43 106/ul Normal 4.20-5.40 [facility] Comment on above: Performed By: #### C VDTBH #### [facility] [address] [place] [address] Dr. Doreen Betancourt WBC 4.9 103/ul Normal 4.0-11.0 [facility] Comment on above: Performed By: #### C VDTBH #### [facility] [address] [place] [address] Dr. Doreen Betancourt MAGNESIUMon 05-22-2022 Magnesium [Mass/Vol] 2.1 mg/dL Normal 1.8-2.4 [facility] Comment on above: Performed By: #### M G, CMP #### [facility] [address] [place] [address] Dr. Doreen Betancourt PREG HCG QUALon 05-22-2022 , QUAL Negative Normal NEGATIVE [facility] Comment on above: Performed By: #### M G, CMP #### [facility] [address] [place] [address] Dr. Doreen Betancourt PROF 14(COMP METB)on 022 Albumin [Mass/Vol] 3.9 g/dL Normal 3.4-5.0 [facility] Comment on above: Performed By: #### M G, CMP #### [facility] [address] [place] [address] Dr. Doreen Betancourt Albumin/Globulin [Mass ratio] 1.1 {ratio} Normal [facility] Comment on above: Performed By: #### M G, CMP #### [facility] [address] [place] [address] Dr. Doreen Betancourt ALP [Catalytic activity/Vol] 81 U/L Normal 46-116 [facility] Comment on above: Performed By: #### M G, CMP #### [facility] [address] [place] [address] Dr. Doreen Betancourt ALT [Catalytic activity/Vol] 27 U/L Normal 14-59 [facility] Comment on above: Performed By: #### M G, CMP #### [facility] [address] [place] [address] Dr. Doreen Betancourt Anion gap [Moles/Vol] 8.6 mmol/L Normal [facility] Comment on above: Performed By: #### M G, CMP #### [facility] [address] [place] [address] Dr. Doreen Betancourt AST [Catalytic activity/Vol] 23 U/L Normal 15-37 [facility] Comment on above: Performed By: #### M G, CMP #### [facility] [address] [place] [address] Dr. Doreen Betancourt Bilirubin [Mass/Vol] 0.3 mg/dL Normal 0.2-1.0 [facility] Comment on above: Performed By: #### M G, CMP #### [facility] [address] [place] [address] Dr. Doreen Betancourt Calcium [Mass/Vol] 9.5 mg/dL Normal 8.5-10.1 [facility] Comment on above: Performed By: #### M G, CMP #### [facility] [address] [place] [address] Dr. Doreen Betancourt Chloride [Moles/Vol] 104 mmol/L Normal 98-107 [facility] Comment on above: Performed By: #### M G, CMP #### [facility] [address] [place] [address] Dr. Doreen Betancourt CO2 [Moles/Vol] 31.8 mmol/L Normal 21.0-32.0 [facility] Comment on above: Performed By: #### M G, CMP #### [facility] [address] [place] [address] Dr. Doreen Betancourt Creatinine [Mass/Vol] 0.59 mg/dL Normal 0.55-1.02 [facility] Comment on above: Performed By: #### M G, CMP #### [facility] [address] [place] [address] Dr. Doreen Betancourt EGFR-AF IVORIAN >60 Normal >=60 [facility] Comment on above: Performed By: #### M G, CMP #### [facility] [address] [place] [address] Dr. Doreen Betancourt EGFR-NON AF IVORIAN >60 Normal >=60 [facility] Comment on above: Performed By: #### M G, CMP #### [facility] [address] [place] [address] Dr. Doreen Betancourt Globulin (S) [Mass/Vol] 3.7 g/dL Normal [facility] Comment on above: Performed By: #### M G, CMP #### [facility] [address] [place] [address] Dr. Doreen Betancourt Glucose [Mass/Vol] 110 mg/dL Critically high 74-106 [facility] Comment on above: Performed By: #### M G, CMP #### [facility] [address] [place] [address] Dr. Doreen Betancourt Potassium [Moles/Vol] 4.4 mmol/L Normal 3.5-5.1 [facility] Comment on above: Performed By: #### M G, CMP #### [facility] [address] [place] [address] Dr. Doreen Betancourt Protein [Mass/Vol] 7.6 g/dL Normal 6.4-8.2 [facility] Comment on above: Performed By: #### M G, CMP #### [facility] [address] [place] [address] Dr. Doreen Betancourt Sodium [Moles/Vol] 140 mmol/L Normal 136-145 [facility] Comment on above: Performed By: #### M G, CMP #### [facility] [address] [place] [address] Dr. Doreen Betancourt Urea nitrogen [Mass/Vol] 17.0 mg/dL Normal 7.0-18.0 [facility] Comment on above: Performed By: #### M G, CMP #### [facility] [address] [place] [address] Dr. Doreen Betancourt Urea nitrogen/Creatinine [Mass ratio] 28.8 mg/mg Normal [facility] Comment on above: Performed By: #### M G, [facility] #### [facility] [address] [address] [address] Doreen Betancourt XR CHEST 1 Von [...] NEDA COULTER Date: 2022-05-22 11:22 Normal [facility] Covid-19 PCR (CVDTB)on 05-07 SARS-CoV-2 (COVID-19) RNA MARIVEL+probe Ql (Unsp spec) Not detected Normal NOT DETECTED [facility] Comment on above: Result Comment: This test is not yet approved or cleared by the [place] FDA. When there are no FDA-approved or cleared tests available, and other criteria are met, FDA can make tests available under an emergency access mechanism called an Emergency Use Authorization (EUA). The EUA for this test is supported by the [employer] of Health and Human Service's (HHS's) declaration [...] SARS-CoV-2. Performed By: #### C VDTBH #### [facility] [address] [place] [address] Dr. Doreen Betancourt CBC AUTO DIFFon 04-13-2022 BASO # 0.0 103/ul Normal 0.0-0.1 [facility] Comment on above: Performed By: #### M G, CMP #### [facility] [address] [place] [address] Dr. Doreen Betancourt Basophils/100 WBC (Bld) 0.4 % Normal 0.2-2.0 [facility] Comment on above: Performed By: #### M G, CMP #### [facility] [address] [place] [address] Dr. Doreen Betancourt EO # 0.1 103/ul Normal 0.0-0.7 [facility] Comment on above: Performed By: #### M G, CMP #### [facility] [address] [place] [address] Dr. Doreen Betancourt Eosinophils/100 WBC (Bld) 0.7 % Critically low 0.9-7.0 [facility] Comment on above: Performed By: #### M G, CMP #### [facility] [address] [place] [address] Dr. Doreen Betancourt Erythrocyte distribution width (RBC) [Ratio] 12.9 % Normal 11.0-15.0 [facility] Comment on above: Performed By: #### M G, CMP #### [facility] [address] [place] [address] Dr. Doreen Betancourt Hematocrit (Bld) [Volume fraction] 32.5 % Critically low 36.0-48.0 [facility] Comment on above: Performed By: #### M G, CMP #### [facility] [address] [place] [address] Dr. Doreen Betancourt Hemoglobin (Bld) [Mass/Vol] 10.6 g/dL Critically low 12.0-16.0 [facility] Comment on above: Performed By: #### M G, CMP #### [facility] [address] [place] [address] Dr. Doreen Betancourt IG # 0.02 10e3/ul Normal 0.00-0.03 [facility] Comment on above: Performed By: #### M G, CMP #### [facility] [address] [address] [address] Doreen Betancourt IG % 0.3 % Normal 0.0-0.5 [facility] Comment on above: Performed By: #### M G, CMP #### [facility] [address] [address] [address] Doreen Betancourt LYMPH # 2.2 103/ul Normal 1.2-3.8 [facility] Comment on above: Performed By: #### M G, CMP #### [facility] [address] [address] [address] Doreen Betancourt Lymphocytes/100 WBC (Bld) 32.0 % Normal 20.5-60.0 [facility] Comment on above: Performed By: #### M G, CMP #### [facility] [address] [place] [address] Dr. Doreen Betancourt MANUAL DIFF REQ NO Normal [facility] Comment on above: Performed By: #### M G, CMP #### [facility] [address] [place] [address] Dr. Doreen Betancourt MCH (RBC) [Entitic mass] 30.5 pg Normal 26.7-34.0 [facility] Comment on above: Performed By: #### M G, CMP #### [facility] [address] [place] [address] Dr. Doreen Betancourt MCHC (RBC) [Mass/Vol] 32.6 g/dL Normal 29.9-35.2 [facility] Comment on above: Performed By: #### M G, CMP #### [facility] [address] [address] [address] Doreen Betancourt MCV (RBC) [Entitic vol] 93.4 fL Normal 81.0-99.0 [facility] Comment on above: Performed By: #### M G, CMP #### [facility] [address] [address] [address] Doreen Betancourt MONO # 0.6 103/ul Normal 0.3-0.8 [facility] Comment on above: Performed By: #### M G, CMP #### [facility] [address] [place] [address] Dr. Doreen Betancourt Monocytes/100 WBC (Bld) 8.3 % Normal 1.7-12.0 [facility] Comment on above: Performed By: #### M G, CMP #### [facility] [address] [place] [address] Dr. Doreen Betancourt NEUT # 3.9 103/ul Normal 1.4-6.5 [facility] Comment on above: Performed By: #### M G, CMP #### [facility] [address] [place] [address] Dr. Doreen Betancourt Neutrophils/100 WBC (Bld) 58.3 % Normal 43.0-75.0 [facility] Comment on above: Performed By: #### M G, CMP #### [facility] [address] [place] [address] Dr. Doreen Betancourt Platelet mean volume (Bld) [Entitic vol] 10.4 fL Normal 9.5-13.5 [facility] Comment on above: Performed By: #### M G, CMP #### [facility] [address] [place] [address] Dr. Doreen Betancourt PLT 213 103/ul Normal 150-450 [facility] Comment on above: Performed By: #### M G, CMP #### [facility] [address] [place] [address] Dr. Doreen Betancourt RBC 3.48 106/ul Critically low 4.20-5.40 [facility] Comment on above: Performed By: #### M G, CMP #### [facility] [address] [place] [address] Dr. Doreen Betancourt WBC 6.8 103/ul Normal 4.0-11.0 [facility] Comment on above: Performed By: #### M G, CMP #### [facility] [address] [place] [address] Dr. Doreen Betancourt PROF CHEM 8 (BAS METB)on 10- 08-2022 Anion gap [Moles/Vol] 7.3 mmol/L Normal [facility] Comment on above: Performed By: #### M G, CMP #### [facility] [address] [place] [address] Dr. Doreen Betancourt Calcium [Mass/Vol] 8.8 mg/dL Normal 8.5-10.1 [facility] Comment on above: Performed By: #### M G, CMP #### [facility] [address] [place] [address] Dr. Doreen Betancourt Chloride [Moles/Vol] 105 mmol/L Normal 98-107 [facility] Comment on above: Performed By: #### M G, CMP #### [facility] [address] [place] [address] Dr. Doreen Betancourt CO2 [Moles/Vol] 27.8 mmol/L Normal 21.0-32.0 [facility] Comment on above: Performed By: #### M G, CMP #### [facility] [address] [place] [address] Dr. Doreen Betancourt Creatinine [Mass/Vol] 0.57 mg/dL Normal 0.55-1.02 [facility] Comment on above: Performed By: #### M G, CMP #### [facility] [address] [place] [address] Dr. Doreen Betancourt EGFR-AF IVORIAN >60 Normal >=60 [facility] Comment on above: Performed By: #### M G, CMP #### [facility] [address] [place] [address] Dr. Doreen Betancourt EGFR-NON AF IVORIAN >60 Normal >=60 [facility] Comment on above: Performed By: #### M G, CMP #### [facility] [address] [place] [address] Dr. Doreen Betancourt Glucose [Mass/Vol] 93 mg/dL Normal 74-106 [facility] Comment on above: Performed By: #### M G, CMP #### [facility] [address] [place] [address] Dr. Doreen Betancourt Potassium [Moles/Vol] 4.1 mmol/L Normal 3.5-5.1 [facility] Comment on above: Performed By: #### M G, CMP #### [facility] [address] [place] [address] Dr. Doreen Betancourt Sodium [Moles/Vol] 136 mmol/L Normal 136-145 [facility] Comment on above: Performed By: #### M G, CMP #### [facility] [address] [place] [address] Dr. Doreen Betancourt Urea nitrogen [Mass/Vol] 5.0 mg/dL Critically low 7.0-18.0 [facility] Comment on above: Performed By: #### M G, CMP #### [facility] [address] [place] [address] Dr. Doreen Betancourt Urea nitrogen/Creatinine [Mass ratio] 8.8 mg/mg Normal [facility] Comment on above: Performed By: #### M G, CMP #### [facility] [address] [place] [address] Dr. Doreen Betancourt PROF CHEM 8 (BAS METB)on Anion gap [Moles/Vol] 9.6 mmol/L Normal [facility] Comment on above: Performed By: #### C VDTBH #### [facility] [address] [place] [address] Dr. Doreen Betancourt Calcium [Mass/Vol] 8.8 mg/dL Normal 8.5-10.1 [facility] Comment on above: Performed By: #### C VDTBH #### [facility] [address] [place] [address] Dr. Doreen Betancourt Chloride [Moles/Vol] 101 mmol/L Normal 98-107 [facility] Comment on above: Performed By: #### C VDTBH #### [facility] [address] [place] [address] Dr. Doreen Betancourt CO2 [Moles/Vol] 26.8 mmol/L Normal 21.0-32.0 [facility] Comment on above: Performed By: #### C VDTBH #### [facility] [address] [place] [address] Dr. Doreen Betancourt Creatinine [Mass/Vol] 0.53 mg/dL Critically low 0.55-1.02 [facility] Comment on above: Performed By: #### C VDTBH #### [facility] [address] [place] [address] Dr. Doreen Betancourt EGFR-AF IVORIAN >60 Normal >=60 [facility] Comment on above: Performed By: #### C VDTBH #### [facility] [address] [place] [address] Dr. Doreen Betancourt EGFR-NON AF IVORIAN >60 Normal >=60 [facility] Comment on above: Performed By: #### C VDTBH #### [facility] [address] [place] [address] Dr. Doreen Betancourt Glucose [Mass/Vol] 122 mg/dL Critically high 74-106 [facility] Comment on above: Performed By: #### C VDTBH #### [facility] [address] [place] [address] Dr. Doreen Betancourt Potassium [Moles/Vol] 3.4 mmol/L Critically low 3.5-5.1 [facility] Comment on above: Performed By: #### C VDTBH #### [facility] [address] [place] [address] Dr. Doreen Betancourt Sodium [Moles/Vol] 134 mmol/L Critically low 136-145 [facility] Comment on above: Performed By: #### C VDTBH #### [facility] [address] [place] [address] Dr. Doreen Betancourt Urea nitrogen [Mass/Vol] 6.0 mg/dL Critically low 7.0-18.0 [facility] Comment on above: Performed By: #### C VDTBH #### [facility] [address] [place] [address] Dr. Doreen Betancourt Urea nitrogen/Creatinine [Mass ratio] 11.3 mg/mg Normal [facility] Comment on above: Performed By: #### C VDTBH #### [facility] [address] [place] [address] Dr. Doreen Betancourt CBC AUTO DIFFon 04-11-2022 BASO # 0.0 103/ul Normal 0.0-0.1 [facility] Comment on above: Performed By: #### M G, CMP #### [facility] [address] [place] [address] Dr. Doreen Betancourt Basophils/100 WBC (Bld) 0.1 % Critically low 0.2-2.0 [facility] Comment on above: Performed By: #### M G, CMP #### [facility] [address] [place] [address] Dr. Doreen Betancourt EO # 0.0 103/ul Normal 0.0-0.7 [facility] Comment on above: Performed By: #### M G, CMP #### [facility] [address] [place] [address] Dr. Doreen Betancourt Eosinophils/100 WBC (Bld) 0.0 % Critically low 0.9-7.0 [facility] Comment on above: Performed By: #### Gay Martino, CMP #### [facility] [address] [place] [address] Dr. Doreen Betancourt Erythrocyte distribution width (RBC) [Ratio] 13.0 % Normal 11.0-15.0 [facility] Comment on above: Performed By: #### M Salena, CMP #### [facility] [address] [place] [address] Dr. Doreen Betancourt Hematocrit (Bld) [Volume fraction] 35.6 % Critically low 36.0-48.0 [facility] Comment on above: Performed By: #### M Salena, CMP #### [facility] [address] [place] [address] Dr. Doreen Betancourt Hemoglobin (Bld) [Mass/Vol] 11.5 g/dL Critically low 12.0-16.0 [facility] Comment on above: Performed By: #### M G, CMP #### [facility] [address] [place] [address] Dr. Doreen Betancourt IG # 0.02 10e3/ul Normal 0.00-0.03 [facility] Comment on above: Performed By: #### M G, CMP #### [facility] [address] [address] [address] Doreen Betancourt IG % 0.2 % Normal 0.0-0.5 [facility] Comment on above: Performed By: #### M G, CMP #### [facility] [address] [place] [address] Dr. Doreen Betancourt LYMPH # 1.3 103/ul Normal 1.2-3.8 [facility] Comment on above: Performed By: #### M G, CMP #### [facility] [address] [place] [address] Dr. Doreen Betancourt Lymphocytes/100 WBC (Bld) 12.4 % Critically low 20.5-60.0 [facility] Comment on above: Performed By: #### M G, CMP #### [facility] [address] [place] [address] Dr. Doreen Betancourt MANUAL DIFF REQ NO Normal [facility] Comment on above: Performed By: #### M G, CMP #### [facility] [address] [place] [address] Dr. Doreen Betancourt MCH (RBC) [Entitic mass] 29.9 pg Normal 26.7-34.0 [facility] Comment on above: Performed By: #### M G, CMP #### [facility] [address] [place] [address] Dr. Doreen Betancourt MCHC (RBC) [Mass/Vol] 32.3 g/dL Normal 29.9-35.2 [facility] Comment on above: Performed By: #### M G, CMP #### [facility] [address] [place] [address] Dr. Doreen Betancourt MCV (RBC) [Entitic vol] 92.7 fL Normal 81.0-99.0 [facility] Comment on above: Performed By: #### M G, CMP #### [facility] [address] [place] [address] Dr. Doreen Betancourt MONO # 0.9 103/ul Critically high 0.3-0.8 [facility] Comment on above: Performed By: #### M G, CMP #### [facility] [address] [place] [address] Dr. Doreen Betancourt Monocytes/100 WBC (Bld) 8.8 % Normal 1.7-12.0 [facility] Comment on above: Performed By: #### M G, CMP #### [facility] [address] [place] [address] Dr. Doreen Betancourt NEUT # 8.3 103/ul Critically high 1.4-6.5 [facility] Comment on above: Performed By: #### M G, CMP #### [facility] [address] [place] [address] Dr. Doreen Betancourt Neutrophils/100 WBC (Bld) 78.5 % Critically high 43.0-75.0 [facility] Comment on above: Performed By: #### M G, CMP #### [facility] [address] [place] [address] Dr. Doreen Betancourt Platelet mean volume (Bld) [Entitic vol] 10.6 fL Normal 9.5-13.5 [facility] Comment on above: Performed By: #### M G, CMP #### [facility] [address] [place] [address] Dr. Doreen Betancourt PLT 218 103/ul Normal 150-450 [facility] Comment on above: Performed By: #### M G, CMP #### [facility] [address] [place] [address] Dr. Doreen Betancourt RBC 3.84 106/ul Critically low 4.20-5.40 [facility] Comment on above: Performed By: #### M G, CMP #### [facility] [address] [place] [address] Dr. Doreen Betancourt WBC 10.6 103/ul Normal 4.0-11.0 [facility] Comment on above: Performed By: #### M G, CMP #### [facility] [address] [place] [address] Dr. Doreen Betancourt PROF CHEM 8 (BAS METB)on Anion gap [Moles/Vol] 9.4 mmol/L Normal [facility] Comment on above: Performed By: #### M G, CMP #### [facility] [address] [address] [address] Doreen Betancourt Calcium [Mass/Vol] 8.4 mg/dL Critically low 8.5-10.1 [facility] Comment on above: Performed By: #### M G, CMP #### [facility] [address] [address] [address] Doreen Betancourt Chloride [Moles/Vol] 105 mmol/L Normal 98-107 [facility] Comment on above: Performed By: #### M G, CMP #### [facility] [address] [place] [address] Dr. Doreen Betancourt CO2 [Moles/Vol] 25.1 mmol/L Normal 21.0-32.0 [facility] Comment on above: Performed By: #### M G, CMP #### [facility] [address] [place] [address] Dr. Doreen Betancourt Creatinine [Mass/Vol] 0.50 mg/dL Critically low 0.55-1.02 [facility] Comment on above: Performed By: #### M G, CMP #### [facility] [address] [place] [address] Dr. Doreen Betancourt EGFR-AF IVORIAN >60 Normal >=60 [facility] Comment on above: Performed By: #### M G, CMP #### [facility] [address] [place] [address] Dr. Doreen Betancourt EGFR-NON AF IVORIAN >60 Normal >=60 [facility] Comment on above: Performed By: #### M G, CMP #### [facility] [address] [place] [address] Dr. Doreen Betancourt Glucose [Mass/Vol] 114 mg/dL Critically high 74-106 [facility] Comment on above: Performed By: #### M G, CMP #### [facility] [address] [place] [address] Dr. Doreen Betancourt Potassium [Moles/Vol] 3.5 mmol/L Normal 3.5-5.1 [facility] Comment on above: Performed By: #### M G, CMP #### [facility] [address] [place] [address] Dr. Doreen Betancourt Sodium [Moles/Vol] 136 mmol/L Normal 136-145 [facility] Comment on above: Performed By: #### M G, CMP #### [facility] [address] [place] [address] Dr. Doreen Betancourt Urea nitrogen [Mass/Vol] 6.0 mg/dL Critically low 7.0-18.0 [facility] Comment on above: Performed By: #### M G, CMP #### [facility] [address] [place] [address] Dr. Doreen Betancourt Urea nitrogen/Creatinine [Mass ratio] 12.0 mg/mg Normal [facility] Comment on above: Performed By: #### M G, CMP #### [facility] [address] [place] [address] Dr. Doreen Betancourt CBC AUTO DIFFon 04-08-2022 BASO # 0.1 103/ul Normal 0.0-0.1 [facility] Comment on above: Performed By: #### M G, CMP #### [facility] [address] [place] [address] Dr. Doreen Betancourt Basophils/100 WBC (Bld) 0.8 % Normal 0.2-2.0 [facility] Comment on above: Performed By: #### M G, CMP #### [facility] [address] [place] [address] Dr. Doreen Betancourt EO # 0.1 103/ul Normal 0.0-0.7 [facility] Comment on above: Performed By: #### M G, CMP #### [facility] [address] [place] [address] Dr. Doreen Betancourt Eosinophils/100 WBC (Bld) 1.8 % Normal 0.9-7.0 [facility] Comment on above: Performed By: #### M G, CMP #### [facility] [address] [place] [address] Dr. Doreen Betancourt Erythrocyte distribution width (RBC) [Ratio] 13.0 % Normal 11.0-15.0 [facility] Comment on above: Performed By: #### M G, CMP #### [facility] [address] [place] [address] Dr. Doreen Betancourt Hematocrit (Bld) [Volume fraction] 42.1 % Normal 36.0-48.0 [facility] Comment on above: Performed By: #### M G, CMP #### [facility] [address] [place] [address] Dr. Doreen Betancourt Hemoglobin (Bld) [Mass/Vol] 13.4 g/dL Normal 12.0-16.0 [facility] Comment on above: Performed By: #### M G, CMP #### [facility] [address] [place] [address] Dr. Doreen Betancourt IG # 0.02 10e3/ul Normal 0.00-0.03 [facility] Comment on above: Performed By: #### M G, CMP #### [facility] [address] [place] [address] Dr. Doreen Betancourt IG % 0.3 % Normal 0.0-0.5 [facility] Comment on above: Performed By: #### M G, CMP #### [facility] [address] [place] [address] Dr. Doreen Betancourt LYMPH # 2.1 103/ul Normal 1.2-3.8 [facility] Comment on above: Performed By: #### M G, CMP #### [facility] [address] [place] [address] Dr. Doreen Betancourt Lymphocytes/100 WBC (Bld) 31.6 % Normal 20.5-60.0 [facility] Comment on above: Performed By: #### M G, CMP #### [facility] [address] [place] [address] Dr. Doreen Betancourt MANUAL DIFF REQ NO Normal [facility] Comment on above: Performed By: #### M G, CMP #### [facility] [address] [place] [address] Dr. Doreen Betancourt MCH (RBC) [Entitic mass] 30.2 pg Normal 26.7-34.0 [facility] Comment on above: Performed By: #### M G, CMP #### [facility] [address] [place] [address] Dr. Doreen Betancourt MCHC (RBC) [Mass/Vol] 31.8 g/dL Normal 29.9-35.2 [facility] Comment on above: Performed By: #### M G, CMP #### [facility] [address] [place] [address] Dr. Doreen Betancourt MCV (RBC) [Entitic vol] 95.0 fL Normal 81.0-99.0 [facility] Comment on above: Performed By: #### M G, CMP #### [facility] [address] [place] [address] Dr. Doreen Betancourt MONO # 0.4 103/ul Normal 0.3-0.8 [facility] Comment on above: Performed By: #### M G, CMP #### [facility] [address] [place] [address] Dr. Doreen Betancourt Monocytes/100 WBC (Bld) 6.2 % Normal 1.7-12.0 [facility] Comment on above: Performed By: #### M G, CMP #### [facility] [address] [place] [address] Dr. Doreen Betancourt NEUT # 3.9 103/ul Normal 1.4-6.5 [facility] Comment on above: Performed By: #### M G, CMP #### [facility] [address] [place] [address] Dr. Doreen Betancourt Neutrophils/100 WBC (Bld) 59.3 % Normal 43.0-75.0 [facility] Comment on above: Performed By: #### M G, CMP #### [facility] [address] [place] [address] Dr. Doreen Betancourt Platelet mean volume (Bld) [Entitic vol] 10.2 fL Normal 9.5-13.5 [facility] Comment on above: Performed By: #### M G, CMP #### [facility] [address] [place] [address] Dr. Doreen Betancourt PLT 276 103/ul Normal 150-450 [facility] Comment on above: Performed By: #### M G, CMP #### [facility] [address] [address] [address] Doreen Betancourt RBC 4.43 106/ul Normal 4.20-5.40 [facility] Comment on above: Performed By: #### M G, CMP #### [facility] [address] [address] [address] Doreen Betancourt WBC 6.6 103/ul Normal 4.0-11.0 [facility] Comment on above: Performed By: #### M G, CMP #### [facility] [address] [place] [address] Dr. Doreen Betancourt [facility]on SARS-CoV-2 (COVID-19) RNA MARIVEL+probe Ql (Unsp spec) Not detected Normal NOT DETECTED [facility] Comment on above: Result Comment: When [...] for this test is supported by the [place] of Health and Human Service's declaration that [...] Performed By: #### M G, CMP #### [facility] [address] [place] [address] Dr. Doreen Betancourt TYPE AND SCREENon 04-08-2022 TYPE AND SCREEN Negative Normal [facility] Comment on above: Performed By: #### M G, CMP #### [facility] [address] [place] [address] Dr. Doreen Betancourt CEAon 2022 CEA 4.9 ng/mL Critically high 0.0-4.7 [facility] Comment on above: Result Comment: Nons mokers <3.9 Smokers <5.6 . [employer] Electrochemiluminescence Immunoassay (ECLIA) . Values obtained with different assay methods or kits cannot be used interchangeably. Results cannot be interpreted as absolute evidence of the presence or absence of malignant disease. Performed By: #### M G, CMP #### [facility] [address] [place] [address] Dr. Doreen Betancourt PROF 14(COMP METB)on 022 Albumin [Mass/Vol] 3.6 g/dL Normal 3.4-5.0 [facility] Comment on above: Performed By: #### M G, CMP #### [facility] [address] [place] [address] Dr. Doreen Betancourt Albumin/Globulin [Mass ratio] 1.1 {ratio} Normal [facility] Comment on above: Performed By: #### M G, CMP #### [facility] [address] [place] [address] Dr. Doreen Betancourt ALP [Catalytic activity/Vol] 76 U/L Normal 46-116 [facility] Comment on above: Performed By: #### M Salena, CMP #### [facility] [address] [place] [address] Dr. Doreen Betancourt ALT [Catalytic activity/Vol] 18 U/L Normal 14-59 [facility] Comment on above: Performed By: #### M G, CMP #### [facility] [address] [place] [address] Dr. Doreen Betancourt Anion gap [Moles/Vol] 12.7 mmol/L Normal [facility] Comment on above: Performed By: #### M G, CMP #### [facility] [address] [place] [address] Dr. Doreen Betancourt AST [Catalytic activity/Vol] 15 U/L Normal 15-37 [facility] Comment on above: Performed By: #### M G, CMP #### [facility] [address] [place] [address] Dr. Doreen Betancourt Bilirubin [Mass/Vol] 0.3 mg/dL Normal 0.2-1.0 [facility] Comment on above: Performed By: #### M G, CMP #### [facility] [address] [address] [address] Doreen Betancourt Calcium [Mass/Vol] 8.8 mg/dL Normal 8.5-10.1 [facility] Comment on above: Performed By: #### M G, CMP #### [facility] [address] [place] [address] Dr. Doreen Betancourt Chloride [Moles/Vol] 104 mmol/L Normal 98-107 [facility] Comment on above: Performed By: #### M G, CMP #### [facility] [address] [place] [address] Dr. Doreen Betancourt CO2 [Moles/Vol] 25.5 mmol/L Normal 21.0-32.0 [facility] Comment on above: Performed By: #### M G, CMP #### [facility] [address] [place] [address] Dr. Doreen Betancourt Creatinine [Mass/Vol] 0.61 mg/dL Normal 0.55-1.02 [facility] Comment on above: Performed By: #### M G, CMP #### [facility] [address] [place] [address] Dr. Doreen Betancourt EGFR-AF IVORIAN >60 Normal >=60 [facility] Comment on above: Performed By: #### M G, CMP #### [facility] [address] [place] [address] Dr. Doreen Betancourt EGFR-NON AF IVORIAN >60 Normal >=60 [facility] Comment on above: Performed By: #### M G, CMP #### [facility] [address] [place] [address] Dr. Doreen Betancourt Globulin (S) [Mass/Vol] 3.3 g/dL Normal [facility] Comment on above: Performed By: #### M G, CMP #### [facility] [address] [address] [address] Doreen Betancourt Glucose [Mass/Vol] 93 mg/dL Normal 74-106 [facility] Comment on above: Performed By: #### M G, CMP #### [facility] [address] [place] [address] Dr. Doreen Betancourt Potassium [Moles/Vol] 4.2 mmol/L Normal 3.5-5.1 [facility] Comment on above: Performed By: #### M G, CMP #### [facility] [address] [place] [address] Dr. Doreen Betancourt Protein [Mass/Vol] 6.9 g/dL Normal 6.4-8.2 [facility] Comment on above: Performed By: #### M G, CMP #### [facility] [address] [place] [address] Dr. Doreen Betancourt Sodium [Moles/Vol] 138 mmol/L Normal 136-145 [facility] Comment on above: Performed By: #### M G, CMP #### [facility] [address] [place] [address] Dr. Doreen Betancourt Urea nitrogen [Mass/Vol] 17.0 mg/dL Normal 7.0-18.0 [facility] Comment on above: Performed By: #### M G, CMP #### [facility] [address] [place] [address] Dr. Doreen Betancourt Urea nitrogen/Creatinine [Mass ratio] 27.9 mg/mg Normal [facility] Comment on above: Performed By: #### M G, CMP #### [facility] [address] [place] [address] ABD/PELV W CONon [...] NEDA COULTER Date: 2022-03-27 17:13 Normal [facility] Covid-19 PCR (CVDTB)on SARS-CoV-2 (COVID-19) RNA MARIVEL+probe Ql (Unsp spec) Not detected Normal NOT DETECTED [facility] Comment on above: Result Comment: This test is not yet approved or cleared by the [place] FDA. When there are no FDA-approved or cleared tests available, and other criteria are met, FDA can make tests available under an emergency access mechanism called an Emergency Use Authorization (EUA). The EUA for this test is supported by the [place] of Health and Human Service's (HHS's) declaration [...] with SARS-CoV-2. Performed By: #### M G, [facility] #### [facility] [address] ABD/PELV W CONon 01-10-[address] [...] NEDA COULTER Date: 2022-01-09 17:53 Normal [facility] Coding Summaryon 05-01-2021 Coding Summary [employer] 64 VphvksfhXYg9cXo+PGhlYWQ+PE 9YSFLuO29nmDUjvO7YC1lNEI3J PKVEWHHDPL9IWI0zjBR9OPfqS1 VybiAv LzzzcMVgGT06XIq4QDP4bRinAT mxeJ8gbPOkC8b7VpSiUU47sD35 PAtkSKLlIkA9EaZodwiifMIv I8mtXjIqlJPaLgp+PHRhYmxlIH nrOVDmEVwxJRCjJfPdnQqzCK5z Us2oYHQfLKUocUbytYTaZnZd p7xjZOBqOAzyTX9beXvdZ1QukR O4JVTnq9u3Ks17qQG+PHRkIHN0 jZsqAJuqq637ItJyo4twWBW4 lCOsSPvlVTO6S36zg2Y1MDSlVT SrVON8sFO2wQ5xiUbcxsahB5Kg bSWqVwZ0CRH6aRBqrQ4rvJlg wjeajB4gAim+Q00NLO2UJJIWAZ 0RWkl3C8IuGmsppPW+ZW97YXWk RV49xWIfaOHwb9ugtHw9SuEs NYNdHTR5bZydOJuhy5UnVGSzR5 1jhJOzz4S8NWPhvKrekTLdYfMc iHR7mM7dGKubppylk8kjamjx Olcdn7auiz30iU72X84sXExqEL WxGXH3RXKqHXIuuXziew9bhS8b Ii8+PLmtf1tqz8wlfLj3DnTx FDYqfwPtaUgaRPE4c5BqCg23L2 RizKumi6HxOqv7ec06qIOfy6S9 kGW7SNxwQONjwE4jWNurGoT1 WFPaFhPhuY06mMHzSBkzNs5paQ blzSryEX0hOSDqetppYCQzoH9a WCBnaIFtuDfhXA0nPMCjdeya n334BjFjLMJ1PUKokGTtH6ZkiO 6aBlXwKFFuWBYuB4AmtDPkWEdx D951TPwcKgL7MBScltSiA1Cw GUTsuZvhKoD5k5A0At3Rh6Aaou dyHYZ3HIdaGBUmFpD7OiSfJzA3 D7ZyIuw3JOIpwPgjZV0jN7Yh YOIxdxgbddxmrGP6RZHnRMWjeO 24fXAlWXjcQg1qn5E4l761AKLo GBBluT81Wt8ikZqnJIWclUWS xX4oqstwq1krstalTuZgHILpYG k1SHb9MIFdhXjcMfVxOQD9PiN9 KEN2yZLizW2zbHpvneittR5a Oyc+U47ulZ6jRNY9SOS7wmzoFV HgvoLgWC86JH09M6BcSpiwdQCz bGU+AQJdexWtfXrbRP2vJyTl r1mfi7XqCRpdH2GlWBGpKGgyCz p1DNUmHFC6fNG3cH2cOYXeSGwh k5G6zAT1H1IgfdPbsy2vn2zi UFHxDAoqZ83gkSPbi5M7TPCfhI Y5IBAsdHeoUrKxzL34Ipy+PGNv vAsak6FuOhrft2foq4xktSr5 ExEgFTNxmkEjpAboRYQ6y9RyHr 39X62eVAmnGNJmSDIqRWYrQMOf lXglnc9rwW4iHt6+PGNvbCB3 rPR8dJ5xGBMaJeH8ZGgbA580Sm YylZEnVksia0fxj8xowZn6EcKf UBRjllExuSpePEH5x3MwPf89 J43yXDrpRMBiROXtTEFhRBNyeZ yrrr9itB0yZj2+WR4ms7ibrv11 dQ61vOK+GEIgRZL4mMzbHHmx CQDgkB4iJKjgRyT0LWCmLcUywL 43uDNbLNjsLo3dwShrrJldAI3a YGGxfzeas739FxZwu1epJDTr uJXyUEaqAXM7V78id8N3IANzVL MpUZP5vAP5qO2kkRkhedzjtBLj hDjpavQfpUqqDZaeGWiwS390 IHRvcDsnPlBhdGllbnQgTmFtZT v0D6CfIuu3LAQxvXqyXT5znXOw USauQp0olYxjuLonVN7zQUNw olsym193TqThf0mkWDJnhOIhQN qtQYP2H09pm2R2ZILgSCIvODF8 aWD0zW0kmRwzpjfuoYUbiDdn ngJzhTmqBPgqDHzoB225GXBfhX jaPfMzdjLcKZSydAI2DT78PT11 kZYuq8J5uVG7D4PpIRCqyyke zdsfjPB1NVRgYGIlbY17Ep6xlR cxIe7mWPZkFAA0VPNtlGKtR1Bt xJ8yIqTaMRSuBZEkV7BebYLy QWrpP724MBhwWjL0MAZucvNrQ0 HbYJVzwZgcVuP3q3Y1Yn8TC8H6 OK08KW35bROry7D8kQU8I5Wk KXKgispdwuewaQY4VXSlGOOxsA 91Vd3qbAtfVh2aTWEfZAR0WORa rFJrO6QnzH2zOtFqUFQuCEXy P9RlhRYfSDzbH340LZtdVxS1KA IfofLlW7JiBTHusNqmUkC2w8P1 In0KDOp8BP65DL03jKAba8R2 rCP2B1KfAFPtdreatmjdwEX7BW IlHUEpcV28Bs2dbZchUu0vEZMd VVO9IHZyjDWlE8KkxH9tByXr CAZzAYPnH4YywXAyQYqmD832LP exVwP9PKCaprBpP2SsCQBidTik KcC3h6F6Gk1HJGXyOS19HKU3 fVR7SJ50RT64H2QiSpmxxINbzL U+PHRhYmxlIHdpZHRoPScxMDAl AmTzsTwpWM2iCb0jAOJsQMNm fDspxJJjTzCga6kmFILvTAmwEO 2ewIrxC7TexTS8ROAkv6l3Sk30 C93wH3GuyVR+UYSfqYF7sPA8 dF4cExGoAfJ8XVxvE444XmJqlZ VmDvyxk0qqk4snzAh8IoM1IISe lnGisOzmXBK9b9AkMt97V23o IHdpZHRoPSIxNSUiIHZhbGlnbj 0wnT1mQh5+LFJkjVW3xFM7wN0n QqNwWoF8BTvxM364DsTnpGCn Nszmi1evh7dotZh6RpBbNKAgjo OpgJgzAMB2z1QlSy10A5AxhAuz s7ZaCqw0px61zECrl3N5uUB2 C8BlLBBrrlxyvXZwmFeaDX9aTF GeskzqLLPgwN7xTUSiR2w9ZoKl DaP7SBmlF0McmpF9WMNdbAKo AIhiALE0C77km1Y5GYJgDXUnTZ P3jOQ8oI4geEieimsakHHnnZml kbUelPayXFzqYIoqK666CMNp bKvaXPSubD6lQWSeoZSceYbxSQ 4wNTBpbjsnPlBFVElUVEksIEpV RElUSDwvdGQ+YCIrYOI1eLbj GPgwQNDipN9pLRAwI3l6VaDmIc K0WOhoW7FkMQOitdwvYy63tM6o YwBcIzV5NSsoP8FfsfO3BPZq iUBbBFpsGYW3A83sg7N2LKQbQO NlFSM6iGB5qP5afUifrsqzwSVu rGgbzgWauSzvQTqsRQfbE865 ZCXdkKqzFyN7XnW9GbZ3BuZ7X5 TpUfx6HDSvnYuuAZ5xoCZeAApm Gk8seBkgdUpaGD6gMAPnsadn PFZfeZ6eNWRnvOGeuMjzIL1aXY Jmmlgoh293FrFmJIQ5EICjeKLt R6BniV6wLsEzQQZhKKFiN1Hl uRNaTUprY989EDqnVsV2REIzbz HcR6CmASLpwFkdEcB3p5C6To52 NSBZZWFyczwvdGQ+PHRkIHN0 rXuhCFmtUEIjiK5wMFStR4e9Pu FvTrV4YMkoI7YkJRMcxzqeOf57 rA5pMaUxFvS0ITidS0TvjoN7 NIOaqBQvWCalHDT4Z74pw9L9PT TgWUKcNMT7dEG4cR5xzSwykbvh bGVmdDsgdmVydGljYWwtYWxp A138QIXmwBbvFjFZCYSQEAfmhN Q+BASgSEC4iDgyGBewWREdiB3m IMYxU8o9RzWtRqV5RRygY5Me XEXrdqsbRg80yX0qKfDpBgH0EL ohW1RtstI5MIDstVOkKKbyAXO4 A79zi8C8BEIlJPOcLWL6lLI0 tC4doPvlntexiJOqqHirleQwnQ vjQQonWWdoU113QWUtoLthCx7B OH05LY79R8RyIhdtoUMuqCK+ PHRhYmxlIHdpZHRoPScxMDAlJy ZdnBkyWM9kNg2pFSSyYYInyXko sSIjHwIoa6roGSPyEIukTW1y pBkmW0EliXT2WWZqv9p5Xm64W9 5bC2NgfUZ+HESsmFP1jME3rD5g OlUtInY1CDpmH393VqKstPHg Trsvy2rfg7mdxBr1AsToRWUpay VwzMnbHWA5x9AuZq32L47pRUmu DQUzGUEePMUcWIHykSkfqg3b vG9xSb6+PVXuiHJ1tWB3eV4wVt FkKwV3FZukP906QwBqmTNyJarr C50iB7GetOM+EVDgOov3HSDo qSavAA6rmOFeOCzzFh0tDBN4Dl DpFgYxCHikU5WgRPDipjgfdlct jOO2VOEyONWvaP30Gi2geGby Bi1dPHHrMMH3HJXmhNYtC7MoyE 1nVqCiJTQaLRXuC2JlyXDtLXfi X049TGipUnR7FOFkdwKsJ6Kd EUSsyEsoQnP1k2A1Nk1IdFofoV LuXU3lZeSyKTa8I0ZbWbp4JEAx hKnyHY6tpQTkECaqQi7qdPpu xOhiEH6iOBRyxjzyq721McFbq2 imVXPdfRXbJJnfTWI4W39ip3X4 MYZqAFYxWZT1hDV6mM6gmAgf bjogbGVmdDsgdmVydGljYWwtYW okZ415INDnzVxxRwQSYcq7V0Gt Yld0PQTqwHvnUW5spKAeZBll Dw2uqBqrcFmbBS4wAZAhaurqb9 65PrXqi3neFJRhmIEaZGkpXEO5 E48ml9U1XQLkVJRdLOB3wIX6 tS6qmRjardetiZLsxXlhvtXozR gvFHsuPBlvF067KPBpkSveUy6K Wqp3G4KpTix2DKBvzGsqTG0s oZJeWYqpZo8reYnynKqiKB2wVW Zdpnerd203JrBnn2xlUEAkeZCg PTpbCWE2E50bj7A1EWQkNNKy LVU7vTL7mO0ojMctnltpiXMtrO erqrWcuWcdYSrjLYmxS698IADi cDsnPlBheWVyOjwvdGQ+PC90 ev33J7KaCdomRrq2EYSeHTV1lD A8zO4eJRUhOYoph3C3jIR2K5Cc muTkal1bi8iwWRYdTNldT66t bGF (more content not included)... [facility] ED Clinical Summaryon 2020 ED Clinical Summary [facility] Care [address] [place] [address] [id number] Clinical Summary PERSON INFORMATION Name: MARYSOL GARDNER Age: 56 Years Sex: FEMALE : 1965 MRN: Acct#: Visit Reason: Wrist laceration; LEFT WRIST LAC Arrival: 04/21/2021 17:52:39 Discharge: 04/21/2021 18:47:00 LOS: 000 00:55 Check In: 04/21/2021 17:52:39 Checkout: 04/21/2021 18:47:00 Address: [address] [place] [address] PCP: Sandro Chin MD PROVIDER INFORMATION Provider [...] PATIENT EDUCATION INFORMATION Instructions: Laceration Care, Adult, Mjoa-qq-Radu Follow-Up: With: Address: When: Sandro Chin [address] [place] [address] [place] [address] Business (1) Within 3 to 5 days Comments: Please follow-up with Dr. Chin, call the office schedule an appointment to be seen in 3 to 5 days for wound check, please take your Augmentin as prescribed, keep the wound clean, apply bacitracin and keep it covered, have sutures removed in 10 to 12 days from today, take dppr-zfp-ojomtat pain medication as needed, and return back to the urgent care center for any worsening symptoms, concerns, or complications. DIAGNOSIS: 1:Laceration of left wrist Patient Understands: Yes - Patient/family/caregiver verbalizes understanding of instructions given Comment: Normal [facility] ED Patient Summaryon 021 ED Patient Summary [facility] ? [facility] Care [address] [place] [address] [id number] PATIENT DISCHARGE INSTRUCTIONS Patient Information Name: MARYSOL GARDNER Age: 56 Years Date of : 1965 [facility]: [id number] Reason For Visit: Wrist laceration; LEFT WRIST LAC Arrival Time: 04/21/2021 17:52:39 Primary Care Physician: Sandro Chin MD Attending Physician: Leo Art PA-C Comment: Patient Education With: Address: When: Sandro Chin [address] [place] [address], [facility] [place] [address] Business (1) Within 3 to 5 days Comments: Please follow-up with Dr. Chin, call the office schedule an appointment to be seen in 3 to 5 days for wound check, please take your Augmentin as prescribed, keep the wound clean, apply bacitracin and keep it covered, have sutures removed in 10 to 12 days from today, take fkqa-hrq-jufzfna pain medication as needed, and return back [...] needed: ? Soap. ? Water. ? Hand machine iii coremaker. ? Bandage (dressing). ? Antibiotic ointment. ? Clean towel. How to take care of your cut Wash your hands with soap and water before touching your wound or changing your bandage. If soap and water are not available, use hand machine iii coremaker. If your doctor used stitches or yuridia: [...] off the skin. General instructions ? Take ujdt-nru-oftysis and prescription medicines only as told by [...] by your doctor (more content not included)... [facility] Progress Note - Nurseon 04-06 Progress Note - Nurse sutured wound irma kristopher, bacitracin applied and a bandage, pt tolerated well [Electronically Signed on: 04/21/2021 18:57 EDT] Lauren Boyer [Verified on: 04/21/2021 18:57 EDT] Lauren Boyer [facility] Recordon 021 Urgent Care Record [facility] ? Urgent Care [address] [id number] PATIENT DISCHARGE INSTRUCTIONS Patient Information Name: MARYSOL GARDNER Age: 56 Years Date of : 1965 Reason For Visit: Wrist laceration; LEFT WRIST LAC Arrival Time: 04/21/2021 17:52:39 Primary Care Physician: Sandro Chin MD Attending Physician: Leo Art PA-C Comment: Visit Diagnosis: Diagnoses This Visit Laceration of left wrist (S61.512A) Wrist laceration ([id number]) If you received any narcotics, sedation, or [...] legal documents With: Address: When: Sandro Chin [address] [place] [address], [facility] [place] [address] Business (1) Within 3 to 5 days Comments: Please follow-up with Dr. Chin, call the office schedule an appointment to be seen in 3 to 5 days for wound check, please take your Augmentin as prescribed, keep the wound clean, apply bacitracin and keep it covered, have sutures removed in 10 to 12 days from today, take tzxe-eeu-koecxpx pain medication as needed, and return back to the urgent care center for any worsening symptoms, concerns, or complications. Medication Information: The exam and treatment you received today in the [facility] were for an urgent problem and are not intended as complete care. It is important for you to follow up with a doctor, nurse practitioner, or physician?s medical assistant cardiology for ongoing care. If your symptoms become [...] so we can reach you if necessary. [facility] has provided you with a complete list of medications post discharge. 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 Any specific questions regarding your chronic medications and dosages should be discussed with your primary care physician(s) and/or pharmacist. [facility], [address], [place] [id number], [phone] amoxicillin-clavulanate (Augmentin 875 mg-125 mg oral tablet) [...] needed: ? Soap. ? Water. ? Hand machine iii coremaker. ? Bandage (dressing). ? Antibiotic ointment. ? Clean towel. How to take care of your cut Wash your hands with soap and water before touching your wound or changing your bandage. If soap and water ar (more content not included)... Normal [facility] Vital Signs Date Time Vital Sign Value Performing Clinician Facility 04-04-2025 13:13-0400 Body temperature 97.7 [degF] Sandro Chin MD Work Phone: [facility] 04-04-2025 13:13-0400 Body weight 72.57 kg Sandro Chin MD Work Phone: [facility] 04-04-2025 13:13-0400 Diastolic blood pressure 85 mm[Hg] Sandro Chin MD Work Phone: [facility] 04-04-2025 13:13-0400 Heart rate 69 /min Sandro Chin MD Work Phone: [facility] 04-04-2025 13:13-0400 Respiratory rate 16 /min Sandro Chin MD Work Phone: [facility] 04-04-2025 13:13-0400 SaO2% (BldA) [Mass fraction] 98 % Sandro Chin MD Work Phone: [facility] 04-04-2025 13:13-0400 Systolic blood pressure 131 mm[Hg] Sandro Chin MD Work Phone: [facility] 03-21-2025 13:10-0400 Body weight 73.93 kg Sandro Chin MD Work Phone: [facility] 03-21-2025 13:10-0400 Diastolic blood pressure 95 mm[Hg] Sandro Chin MD Work Phone: [facility] 03-21-2025 13:10-0400 Heart rate 69 /min Sandro Chin MD Work Phone: [facility] 03-21-2025 13:10-0400 Respiratory rate 20 /min Sandro Chin MD Work Phone: [facility] 03-21-2025 13:10-0400 SaO2% (BldA) [Mass fraction] 99 % Sandro Chin MD Work Phone: [facility] 03-21-2025 13:10-0400 Systolic blood pressure 156 mm[Hg] Sandro Chin MD Work Phone: [facility] 02-01-2025 09:55-0400 Diastolic blood pressure 58 mm[Hg] Sandro Chin MD Work Phone: [facility] 02-01-2025 09:55-0400 Heart rate 60 /min Sandro Chin MD Work Phone: [facility] 02-01-2025 09:55-0400 Respiratory rate 16 /min Sandro Chin MD Work Phone: [facility] 02-01-2025 09:55-0400 SaO2% (BldA) [Mass fraction] 98 % Sandro Chin MD Work Phone: [facility] 02-01-2025 09:55-0400 Systolic blood pressure 97 mm[Hg] Sandro Chin MD Work Phone: [facility] 02-01-2025 08:44-0400 Body height 162.56 cm Sandro Chin MD Work Phone: [facility] 02-01-2025 08:44-0400 Body weight 73.02 kg Sandro Chin MD Work Phone: [facility] 12-21-2024 08:32-0400 Body mass index (BMI) [Ratio] 27.29 kg/m2 Constantino Martinez MD Work Phone: [facility] 12-21-2024 08:32-0400 Body weight 72.12 kg Constantino Martinez MD Work Phone: [facility] 12-21-2024 08:32-0400 Diastolic blood pressure 101 mm[Hg] Constantino Martinez MD Work Phone: [facility] 12-21-2024 08:32-0400 Heart rate 68 /min Constantino Martinez MD Work Phone: [facility] 12-21-2024 08:32-0400 Systolic blood pressure 148 mm[Hg] Constantino Martinez MD Work Phone: [facility] 12-20-2024 10:41-0400 Body height 162.56 cm Sandro Chin MD Work Phone: [facility] 12-20-2024 10:41-0400 Body mass index (BMI) [Ratio] 27.6 kg/m2 Sandro Chin MD Work Phone: [facility] 12-20-2024 10:41-0400 Body weight 73.02 kg Sandro Chin MD Work Phone: [facility] 12-20-2024 10:41-0400 Diastolic blood pressure 85 mm[Hg] Sandro Chin MD Work Phone: [facility] 12-20-2024 10:41-0400 Heart rate 64 /min Sandro Chin MD Work Phone: [facility] 12-20-2024 10:41-0400 Systolic blood pressure 121 mm[Hg] Sandro Chin MD Work Phone: [facility] 12-14-2024 09:33-0400 Body height 162.56 cm [facility] 12-14-2024 09:33-0400 Body mass index (BMI) [Ratio] 27.6 kg/m2 [facility] 12-14-2024 09:33-0400 Body weight 73.08 kg [facility] 12-14-2024 09:33-0400 Diastolic blood pressure 87 mm[Hg] [facility] 12-14-2024 09:33-0400 Heart rate 58 /min [facility] 12-14-2024 09:33-0400 Systolic blood pressure 142 mm[Hg] [facility] 09-06-2024 12:58-0500 Body height 162.56 cm Clint Jean Baptiste DO Work Phone: [facility] 09-06-2024 12:58-0500 Body mass index (BMI) [Ratio] 28.8 kg/m2 Clint Jean Baptiste DO Work Phone: [facility] 09-06-2024 12:58-0500 Body temperature 97.5 [degF] Clint Alejandros DO Work Phone: [facility] 09-06-2024 12:58-0500 Body weight 76.2 kg Clint Monicoillis DO Work Phone: [facility] 09-06-2024 12:58-0500 Diastolic blood pressure 89 mm[Hg] Clint Marcillis DO Work Phone: [facility] 09-06-2024 12:58-0500 Heart rate 58 /min Clint Marcillis DO Work Phone: [facility] 09-06-2024 12:58-0500 Respiratory rate 16 /min Clint Marcillis DO Work Phone: [facility] 09-06-2024 12:58-0500 SaO2% (BldA) [Mass fraction] 99 % Clint Alejandros DO Work Phone: [facility] 09-06-2024 12:58-0500 Systolic blood pressure 139 mm[Hg] Clint Marcillis DO Work Phone: [facility] 07-01-2024 10:59-0500 Body height 162.56 cm Clint Alejandros DO Work Phone: [facility] 07-01-2024 10:59-0500 Body mass index (BMI) [Ratio] 28.8 kg/m2 Clint Marcillis DO Work Phone: [facility] 07-01-2024 10:59-0500 Body weight 76.2 kg Clint Marcillis DO Work Phone: [facility] 07-01-2024 10:59-0500 Diastolic blood pressure 84 mm[Hg] Clint Alejandros DO Work Phone: [facility] 07-01-2024 10:59-0500 Heart rate 64 /min Clint Alejandros DO Work Phone: [facility] 07-01-2024 10:59-0500 Systolic blood pressure 138 mm[Hg] Clint Jean Baptiste DO Work Phone: [facility] 03-25-2024 11:29-0400 Body height 162.6 cm Masha Richardson RN CLINICIAN-[employer] INS[employer] Work Phone: [facility] 03-25-2024 11:29-0400 Body mass index (BMI) [Ratio] 27.5 kg/m2 Masha Richardson RN CLINICIAN-SWITCH[employer] INSPECTOR Work Phone: [facility] 03-25-2024 11:29-0400 Body weight 72.67 kg Masha Richardson RN CLINICIAN-SWITCH[employer] INSPECTOR Work Phone: [facility] 03-25-2024 11:29-0400 Diastolic blood pressure 60 mm[Hg] Masha Richardson RN CLINICIAN-SWITCH[employer] INSPECTOR Work Phone: [facility] 03-25-2024 11:29-0400 Heart rate 54 /min Masha Richardson RN CLINICIAN-SWITCH[employer] INSPECTOR Work Phone: [facility] 03-25-2024 11:29-0400 Systolic blood pressure 102 mm[Hg] Masha Richardson RN CLINICIAN-SWITCHBOARD INSPECTOR Work Phone: [facility] 03-15-2024 13:50-0400 Body height 162.6 cm Clint Jean Baptiste DO Work Phone: [facility] 03-15-2024 13:50-0400 Body mass index (BMI) [Ratio] 27.46 kg/m2 Clint Jean Baptiste DO Work Phone: [facility] 03-15-2024 13:50-0400 Body weight 72.58 kg Clint Jean Baptiste DO Work Phone: [facility] 03-03-2024 10:26-0400 Body height 162.6 cm Clint Jean Baptiste DO Work Phone: [facility] 03-03-2024 10:26-0400 Body mass index (BMI) [Ratio] 27.46 kg/m2 Clint Jean Baptiste DO Work Phone: [facility] 03-03-2024 10:26-0400 Body weight 72.58 kg Clint Jean Baptiste DO Work Phone: [facility] 01-19-2024 11:22-0400 Body height 162.56 cm DO Clint Flavias Work Phone: [facility] 01-19-2024 11:22-0400 Body mass index (BMI) [Ratio] 28.8 kg/m2 DO Clint Flavias Work Phone: [facility] 01-19-2024 11:22-0400 Body temperature 98 [degF] DO Clint Alejandros Work Phone: [facility] 01-19-2024 11:22-0400 Body weight 76.2 kg DO Clint Alejandros Work Phone: [facility] 01-19-2024 11:22-0400 Diastolic blood pressure 91 mm[Hg] DO Clint Alejandros Work Phone: [facility] 01-19-2024 11:22-0400 Heart rate 52 /min DO Clint Alejandros Work Phone: [facility] 01-19-2024 11:22-0400 Respiratory rate 18 /min DO Clint Alejandros Work Phone: [facility] 01-19-2024 11:22-0400 SaO2% (BldA) [Mass fraction] 99 % DO Clint Alejandros Work Phone: [facility] 01-19-2024 11:22-0400 Systolic blood pressure 138 mm[Hg] DO Clint Flavias Work Phone: [facility] 11-17-2023 09:37-0400 Body height 162.56 cm DO Clint Flavias Work Phone: [facility] 11-17-2023 09:37-0400 Body mass index (BMI) [Ratio] 28.8 kg/m2 DO Clint Flavias Work Phone: [phone] [place] [address] 11-17-2023 09:37-0400 Body weight 76.2 kg DO Clint Monicoillis Work Phone: [facility] 11-17-2023 09:37-0400 Diastolic blood pressure 88 mm[Hg] DO Clint Grillis Work Phone: [facility] 11-17-2023 09:37-0400 Heart rate 60 /min DO Clint Monicoillis Work Phone: [facility] 11-17-2023 09:37-0400 Systolic blood pressure 136 mm[Hg] DO Clint Monicoillis Work Phone: [facility] 09-26-2023 10:34-0400 Body height 162.56 cm DO Clint Monicoillis Work Phone: [facility] 09-26-2023 10:34-0400 Body mass index (BMI) [Ratio] 28.8 kg/m2 DO Clint Monicoillis Work Phone: [facility] 09-26-2023 10:34-0400 Body weight 76.2 kg DO Clint Monicoillis Work Phone: [facility] 09-26-2023 10:34-0400 Diastolic blood pressure 82 mm[Hg] DO Clint Monicoillis Work Phone: [facility] 09-26-2023 10:34-0400 Heart rate 63 /min DO Clint Monicoillis Work Phone: [facility] 09-26-2023 10:34-0400 Respiratory rate 18 /min DO Clint Monicoillis Work Phone: [facility] 09-26-2023 10:34-0400 SaO2% (BldA) [Mass fraction] 97 % DO Clint Monicoillis Work Phone: [facility] 09-26-2023 10:34-0400 Systolic blood pressure 131 mm[Hg] DO Clint Monicoillis Work Phone: [facility] 06-25-2023 11:13-0500 Diastolic blood pressure 79 mm[Hg] DO Clint Jean Baptiste Work Phone: [facility] 06-25-2023 11:13-0500 Heart rate 78 /min DO Clint Alejandros Work Phone: [facility] 06-25-2023 11:13-0500 Respiratory rate 20 /min DO Clint Alejandros Work Phone: [facility] 06-25-2023 11:13-0500 SaO2% (BldA) [Mass fraction] 98 % DO Clint Jean Baptiste Work Phone: [facility] 06-25-2023 11:13-0500 Systolic blood pressure 142 mm[Hg] DO Clint Jean Baptiste Work Phone: [facility] 05-19-2023 11:15-0500 Body height 162.56 cm Sandro Chin Other [employer] Other 05-19-2023 11:15-0500 Body mass index (BMI) [Ratio] 28.56 kg/m2 Sandro Chin Other [employer] Other 05-19-2023 11:15-0500 Body weight 75.48 kg Sandro Chin Other [employer] Other 05-19-2023 11:15-0500 Diastolic blood pressure 75 mm[Hg] Sandro Chin Other [employer] Other 05-19-2023 11:15-0500 Systolic blood pressure 109 mm[Hg] Sandro Chin Other [employer] Other 03-24-2023 10:41-0400 Body temperature 97.4 [degF] DO Clint Jean Baptiste Work Phone: [facility] 09-02-2022 08:36-0500 Body temperature 98 [degF] DO Isaías Jordan II Work Phone: [facility] 09-02-2022 08:36-0500 Body weight 76.6 kg DO Isaías Adamowicz II Work Phone: [facility] 09-02-2022 08:36-0500 Diastolic blood pressure 90 mm[Hg] DO Isaías Adamowicz II Work Phone: [facility] 09-02-2022 08:36-0500 Heart rate 65 /min DO Isaías Adamowicz II Work Phone: [facility] 09-02-2022 08:36-0500 Respiratory rate 20 /min DO Isaías Adamowicz II Work Phone: [facility] 09-02-2022 08:36-0500 SaO2% (BldA) [Mass fraction] 99 % DO Isaías Adamowicz II Work Phone: [facility] 09-02-2022 08:36-0500 Systolic blood pressure 147 mm[Hg] DO Isaías Adamowicz II Work Phone: [facility] 08-19-2022 08:43-0500 Body temperature 98.1 [degF] DO Isaías Adamowicz II Work Phone: [facility] 08-19-2022 08:43-0500 Body weight 74.9 kg DO Isaías Adamowicz II Work Phone: [facility] 08-19-2022 08:43-0500 Diastolic blood pressure 90 mm[Hg] DO Isaías Adamowicz II Work Phone: [facility] 08-19-2022 08:43-0500 Heart rate 60 /min DO Isaías Adamowicz II Work Phone: [facility] 08-19-2022 08:43-0500 Respiratory rate 20 /min DO Isaías Adamowicz II Work Phone: [facility] 08-19-2022 08:43-0500 SaO2% (BldA) [Mass fraction] 100 % DO Isaías Adamowicz II Work Phone: [facility] 08-19-2022 08:43-0500 Systolic blood pressure 143 mm[Hg] DO Isaías Adamowicz II Work Phone: [facility] 07-22-2022 09:43-0500 Body temperature 97.8 [degF] DO Isaías Adamowicz II Work Phone: [facility] 07-22-2022 09:43-0500 Body weight 75.7 kg DO Isaías Adamowicz II Work Phone: [facility] 07-22-2022 09:43-0500 Diastolic blood pressure 92 mm[Hg] DO Isaías Adamowicz II Work Phone: [facility] 07-22-2022 09:43-0500 Heart rate 67 /min DO Isaías Adamowicz II Work Phone: [facility] 07-22-2022 09:43-0500 Respiratory rate 16 /min DO Isaías Adamowicz II Work Phone: [facility] 07-22-2022 09:43-0500 SaO2% (BldA) [Mass fraction] 98 % DO Isaías Adamowicz II Work Phone: [facility] 07-22-2022 09:43-0500 Systolic blood pressure 149 mm[Hg] DO Isaías Adamowicz II Work Phone: [facility] 06-26-2022 12:23-0500 Body temperature 97.9 [degF] DO Clint Jean Baptiste Work Phone: [facility] 06-26-2022 12:23-0500 Diastolic blood pressure 79 mm[Hg] DO Clint Jean Baptiste Work Phone: [facility] 06-26-2022 12:23-0500 Heart rate 60 /min DO Clint Grillis Work Phone: [facility] 06-26-2022 12:23-0500 Respiratory rate 18 /min DO Clint Monicoillis Work Phone: [facility] 06-26-2022 12:23-0500 SaO2% (BldA) [Mass fraction] 97 % DO Clint Monicoillis Work Phone: [facility] 06-26-2022 12:23-0500 Systolic blood pressure 132 mm[Hg] DO Clint Grillis Work Phone: [facility] 06-24-2022 10:02-0500 Body weight 75 kg DO Clint Monicoillis Work Phone: [facility] 06-24-2022 09:08-0500 Body temperature 98 [degF] DO Clint Monicoillis Work Phone: [facility] 06-24-2022 09:08-0500 Body weight 75 kg DO Clint Monicoillis Work Phone: [facility] 06-24-2022 09:08-0500 Diastolic blood pressure 93 mm[Hg] DO Clint Monicoillis Work Phone: [facility] 06-24-2022 09:08-0500 Heart rate 61 /min DO Clint Monicoillis Work Phone: [facility] 06-24-2022 09:08-0500 Respiratory rate 16 /min DO Clint Monicoillis Work Phone: [facility] 06-24-2022 09:08-0500 SaO2% (BldA) [Mass fraction] 98 % DO Clint Grillis Work Phone: [facility] 06-24-2022 09:08-0500 Systolic blood pressure 137 mm[Hg] DO Clint Grillis Work Phone: [facility] 06-03-2022 08:08-0500 Body weight 74.1 kg DO Clint Monicoillis Work Phone: [facility] 06-03-2022 08:08-0500 Diastolic blood pressure 90 mm[Hg] DO Clint Jean Baptiste Work Phone: [facility] 06-03-2022 08:08-0500 Heart rate 56 /min DO Clint Jean Baptiste Work Phone: [facility] 06-03-2022 08:08-0500 Respiratory rate 20 /min DO Clint Jean Baptiste Work Phone: [facility] 06-03-2022 08:08-0500 SaO2% (BldA) [Mass fraction] 98 % DO Clint Jean Baptiste Work Phone: [facility] 06-03-2022 08:08-0500 Systolic blood pressure 137 mm[Hg] DO Clint Jean Baptiste Work Phone: [facility] 05-03-2022 14:40-0400 Body height 162.56 cm DO Clint Jean Baptiste Work Phone: [facility] Encounters Encounter Date Encounter Type Care Provider Facility Start: 04-13-2025 End: 04-13-2025 ambulatory Clint Cleo ALETHAL Facility:[facility] Start: 04-13-2025 End: 04-13-2025 Patient encounter procedure Clint Cleo DAGMAR [facility] [place] Start: 04-11-2025 End: 04-13-2025 ambulatory [facility] Start: 04-11-2025 ambulatory Clint NILL Facility:[facility] Start: 04-11-2025 End: 04-13-2025 ambulatory ANTONIO MI [facility] Start: 04-05-2025 ambulatory Clint NILL Facility:[facility] Start: 04-04-2025 End: 04-04-2025 Patient encounter procedure Isaías Jordan II [facility] Ambulatory Work Phone: Start: 04-04-2025 End: 04-04-2025 ambulatory Sandro Chin MD Work Phone: [facility] Work Phone: Start: 03-30-2025 End: 03-30-2025 External Result Encounter Carlyn Turner [employer] Work Phone: [facility] External Department Unsolicited Start: 03-30-2025 End: 03-30-2025 External Result Encounter Carlyn Turner [employer] Work Phone: [facility] External Department Unsolicited Start: 03-21-2025 Registered Recurring Carlyn Turner [facility] Acute Work Phone: Start: 03-21-2025 End: 03-21-2025 ambulatory Sandro Chin MD Work Phone: [facility] Work Phone: Start: 03-21-2025 End: 03-21-2025 Patient encounter procedure Isaías Jordan II [facility] Ambulatory Work Phone: Start: 03-17-2025 Non-patient / Non-visit Dionicio Jordan II DO -[facility] Work Phone: Start: 02-01-2025 End: 02-01-2025 ambulatory Sandro Chin Facility:[facility] Start: 02-01-2025 Non-patient / Non-visit Roz Borrego [facility] Gastro Work Phone: Start: 12-25-2024 Non-patient / Non-visit Sandro mendoza MD -[facility] Work Phone: Start: 12-21-2024 End: [...] End: 12-20-2024 ambulatory Sandro Chin Facility:[facility] Start: 12-20-2024 End: 12-20-2024 Departed Referred Sandro Chin MD -[facility] [place] Work Phone: Start: 12-20-2024 End: 12-20-2024 Patient encounter procedure Sandro Chin MD -[facility] Work Phone: Start: 12-20-2024 End: 12-20-2024 Patient encounter status Sandro Chin MD [facility] Start: 12-14-2024 End: 12-14-2024 ambulatory [facility] Work Phone: Start: 12-14-2024 End: 12-14-2024 Patient encounter procedure [facility] Physician [facility] Work Phone: Start: 09-06-2024 Registered Recurring Clint eaton DO Work Phone: [facility] Work Phone: Start: 09-06-2024 End: 09-06-2024 ambulatory Clint Jean Baptiste DO Work Phone: [facility] Work Phone: Start: 09-06-2024 End: 09-06-2024 Patient encounter procedure Clint Jean Baptiste DO Work Phone: [facility] Ambulatory Work Phone: Start: 08-24-2024 Non-patient / Non-visit Leroy Jean Baptiste DO Work Phone: [facility] Physician [facility] Work Phone: Start: 07-01-2024 End: 07-01-2024 Patient encounter procedure Clint Jean Baptiste DO Work Phone: [facility] Physician [facility] Work Phone: Start: 03-25-2024 End: 03-25-2024 ambulatory [facility] Start: 03-25-2024 End: 03-25-2024 Postop follow up visit related to original px Masha Richardson RN CLINICIAN-SWITCHBOARD INSPECTOR Work Phone: [facility] General Surgery Comment on above: History of removal o f Port-a-Cath (Primary Dx); History of colon cancer Start: 03-15-2024 End: 03-15-2024 ambulatory TULSA Klever DUGLAS [facility] Amb[facility] Start: 03-15-2024 End: 03-15-2024 Patient encounter procedure Clint Jean Baptiste DO Work Phone: [facility] General Surgery Comment on above: History of colon can cer (Primary Dx) Start: 03-03-2024 End: 03-03-2024 ambulatory CLINT Ernst DUGLAS [facility] Start: 03-03-2024 End: 03-03-2024 Office outpatient visit 15 minutes Clint Jean Baptiste DO Work Phone: [facility] General Surgery Comment on above: History of colon can cer (Primary Dx) Start: 01-19-2024 End: 01-19-2024 ambulatory DO Clint Jean Baptiste Work Phone: [facility] Work Phone: Start: 01-19-2024 End: 01-19-2024 Patient encounter procedure DO Clint Jean Baptiste Work Phone: [facility] Amb[facility] Work Phone: Start: 01-19-2024 Registered Recurring DO Leroy Jean Baptiste Work Phone: [facility] Work Phone: Start: 01-15-2024 Non-patient / Non-visit DO Sherwin Jean Baptiste Work Phone: [facility] Physician [facility] Work Phone: Start: 11-26-2023 Non-patient / Non-visit DO Sherwin Jean Baptiste Work Phone: [facility] Work Phone: Start: 11-17-2023 Patient encounter status DO Araseli Jean Baptiste Work Phone: [facility] Start: 11-17-2023 End: 11-17-2023 ambulatory DO Clint Jean Baptiste Work Phone: [facility] Work Phone: Start: 11-17-2023 End: 11-17-2023 Patient encounter procedure DO Clint Jean Baptiste Work Phone: [facility] Work Phone: Start: 09-26-2023 Registered Recurring DO Leroy Jean Baptiste Work Phone: [facility] Work Phone: Start: 09-26-2023 End: 09-26-2023 ambulatory DO Clint Jean Baptiste Work Phone: [facility] Work Phone: Start: 09-26-2023 End: 09-26-2023 Patient encounter procedure DO Clint Jean Baptiste Work Phone: [facility] Work Phone: Start: 09-18-2023 Non-patient / Non-visit DO Sherwin Jean Baptiste Work Phone: [facility] Work Phone: Start: 05-19-2023 End: 05-19-2023 ambulatory Sandro Chin Other [facility] Other Start: 05-19-2023 Office outpatient vi sit 15 minutes Sandro Chin [facility] Start: 11-16-2022 End: 11-17-2022 ambulatory ISAÍAS JORDAN Facility:[facility] Start: 11-02-2022 End: 11-03-2022 ambulatory ISAÍAS JORDAN Facility:[facility] Start: 10-19-2022 End: 10-20-[address] SANDRO CHIN Facility:[facility] Start: 09-14-2022 End: 09-15-2022 ambulatory ISAÍAS JORDAN Facility:[facility] Start: 09-02-2022 End: 09-02-2022 ambulatory NON STAFF [facility] Work Phone: Start: 09-02-2022 End: 09-02-2022 Registered Recurring DO Isaías Jordan II Work Phone: [facility] Work Phone: Start: 09-01-2022 End: 09-01-[address] SANDRO HCIN Facility:[facility] Start: 08-31-2022 End: 09-01-2022 ambulatory ISAÍAS J RADHA Facility:[facility] Start: 08-19-2022 End: 08-19-2022 ambulatory NON STAFF [facility] Work Phone: Start: 08-19-2022 End: 08-19-2022 Registered Recurring DO Isaíasvanda Muñozmiri II Work Phone: [facility] Work Phone: Start: 08-16-2022 End: 08-17-2022 ambulatory ISAÍAS Seals RADHA Facility:[facility] Start: 08-03-2022 End: 08-04-2022 ambulatory ISAÍAS Seals CHIQUISISAIAS Facility:[facility] Start: 07-22-2022 End: 07-22-2022 ambulatory NON STAFF [facility] Work Phone: Start: 07-22-2022 End: 07-22-2022 Registered Recurring DO Isaías Muñozmiri II Work Phone: [facility] Work Phone: Start: 07-20-2022 End: 07-21-2022 ambulatory ISAÍAS Seals RADHA Facility:[facility] Start: 07-06-2022 End: 07-06-2022 ambulatory DO Clint Alejandros Work Phone: [facility] Work Phone: Start: 07-06-2022 End: 07-06-2022 Departed Referred DO Clint Alejandros Work Phone: [facility] [place] Work Phone: Start: 06-26-2022 Registered Recurring DO Leroy Jean Baptiste Work Phone: [facility] Work Phone: Start: 06-24-2022 End: 06-24-2022 ambulatory DO Clint Alejandros Work Phone: [facility] Work Phone: Start: 06-24-2022 End: 06-24-2022 Registered Recurring DO Clint Alejandros Work Phone: [facility] Start: 06-24-2022 End: 06-24-2022 ambulatory DO Clint Alejandros Work Phone: [facility] Work Phone: Start: 06-24-2022 End: 06-24-2022 Registered Recurring DO Clint Alejandros Work Phone: [facility] Start: 06-22-2022 End: 06-23-2022 ambulatory ISAÍAS JORDAN Facility:[facility] Start: 06-08-2022 End: 06-09-2022 ambulatory ISAÍAS JORDAN Facility:[facility] Start: 06-03-2022 End: 06-03-2022 ambulatory DO Clint Alejandros Work Phone: [facility] Work Phone: Start: 06-03-2022 End: 06-03-2022 Registered Recurring DO Clint Alejandros Work Phone: [facility] Start: 06-01-2022 End: 06-02-2022 ambulatory ISAÍAS JORDAN Facility:[facility] Start: 05-22-2022 End: 05-23-2022 ambulatory ISAÍAS Arnel JORDAN Facility:[facility] Start: 05-21-2022 Encounter for preprocedural laboratory examination DR CLINT JEAN BAPTISTE . [facility] Start: 05-18-2022 End: 05-19-[address] [...] examination DR CLINT JEAN BAPTISTE . [facility] Start: 04-04-2022 Encounter for preprocedural laboratory examination DR CLINT JEAN BAPTISTE . [facility] Start: 04-02-2022 End: [address] CLINT JEAN BAPTISTE . Facility:[facility] Start: 04-02-2022 End: 2022 Encounter for preprocedural cardiovascular examination DR CLINT JEAN BAPTISTE . Facility:[facility] Start: 03-27-2022 End: 03-28-[address] CLINT JEAN BAPTISTE . Facility:[facility] Start: 03-13-2022 End: 03-13-[address] CLINT JEAN BAPTISTE . Facility:[facility] Start: 03-09-2022 End: 03-10-[address] CLNIT JEAN BAPTISTE . Facility:[facility] Start: 01-09-2022 End: [...] the presence orabsence of malignant disease.Performed at: [facility] [place], [place] [id number] Director: Edilson Saunders PhD, Phone: [phone] Start: 08-24-2024 Carcinoembryonic antigen cea Clint sullivan DO Work Phone: Comment on above: Nonsmokers <3.9 Smokers <5.6[employer] Electrochemiluminescence Immunoassay(ECLIA)Values obtained with different assay methods or kitscannot be used interchangeably. Results cannot beinterpreted as absolute evidence of the presence orabsence of malignant disease.Performed at: [facility] [place], [place] [id number] Director: Edilson Saunders PhD, Phone: [phone] Start: 03-15-2024 Removal of implantable venous access port Clint POMPAIvory Start: 01-15-2024 Carcinoembryonic antigen cea DO Clint Jean Baptiste Work Phone: Comment on above: Nonsmokers <3.9 Smokers <5.6[employer] Electrochemiluminescence Immunoassay(ECLIA)Values obtained with different assay methods or kitscannot be used interchangeably. Results cannot beinterpreted as absolute evidence of the presence orabsence of malignant disease.Performed at: [facility] [place], [place] [id number] Director: Edilson Saunders PhD, Phone: [phone] Start: 09-18-2023 Carcinoembryonic antigen cea DO Clint Jean Baptiste Work Phone: Comment on above: Nonsmokers <3.9 Smokers <5.6[employer] Electrochemiluminescence Immunoassay(ECLIA)Values obtained with different assay methods or kitscannot be used interchangeably. Results cannot beinterpreted as absolute evidence of the presence orabsence of malignant disease.Performed at: [facility] [place], [place] [id number] Director: Edilson Saunders PhD, Phone: [phone] Start: 05-07-2023 Colonoscopy Clint Alejandros DO Work [...] for malign ant neoplasm of colon [facility] Start: 05-07-2026 Screening for malign ant neoplasm of colon Colonoscopy [facility] Start: 04-18-2025 ambulatory Ambulatory [facility] Start: 04-04-2025 Patient referral [facility] Work Phone: Start: 03-21-2025 Patient referral [facility] Work Phone: Start: 03-15-2025 Adult BMI Screening Adult BMI Screen ing [facility] Start: 03-15-2025 Tobacco Screening Tobacco Screening [facility] Start: 03-07-2025 Influenza vaccination Influenz a Vaccine (#1) [facility] Start: 03-03-2025 Adult BMI Screening Adult BMI Screen ing [facility] Start: 03-03-2025 Tobacco Screening Tobacco Screening [facility] Start: 02-01-2025 End: 02-01-[address] [facility] Start: 12-21-2024 End: 12-21-2024 Patient encounter procedure 12/21/2024 8:40 AM EDT Office Visit [facility] [address] [place] [address] Constantino Martinez MD [address] [facility] [address] [place] [address] Arrived [facility] Comment on above: Arrived Start: 12-14-2024 Patient referral [facility] Work Phone: Start: 03-25-2024 End: 03-25-2024 Patient encounter procedure 03/25/2024 11:00 AM EDT Office Visit [facility] General Surgery [address] [place] [id number] Masha Richardson, RN CLINICIAN-SWITCHBOARD INSPECTOR [address] [place], [place] [phone] [facility] General Surgery Start: 03-15-2024 End: 03-15-2024 Patient encounter procedure 03/15/2024 1:30 PM EDT Office Visit [facility] General Surgery [address] [place] [id number] Clint Jean Baptiste, [address] [place], [place] [id number] [facility] General Surgery Start: 03-07-2024 COVID-19 Vaccine ( season) COVID-19 Vaccine () [facility] Start: 03-07-2024 Influenza vaccination Influenza Vacc ine [facility] Start: 01-19-2024 Patient referral [facility] Work Phone: Start: 11-17-2023 Patient referral [facility] Work Phone: Start: 03-07-2023 COVID-19 Vaccine ( season) COVID-19 Vaccine ( season) [facility] Start: 11-18-[address] [facility] Start: 11-18-[address] [facility] Start: 11-04-[address] [facility] Start: 10-21-[address] [facility] Start: 10-21-[address] [facility] Start: 10-21-[address] [facility] Start: 09-23-[address] [facility] Start: 09-23-[address] [facility] Start: 09-16-[address] [facility] Start: 09-02-[address] [facility] Start: 08-19-[address] [facility] Start: 08-19-[address] [facility] Start: 08-05-[address] [facility] Start: 07-22-[address] [facility] Start: 07-09-[address] [facility] Start: 06-26-[address] [facility] Start: 06-24-[address] [facility] Start: 06-10-2022 Comprehensive metabo lic 2000 panel - Serum or Plasma [facility] Start: 06-10-[address] [facility] Start: 06-10-[address] [facility] Start: 06-10-[address] [facility] Start: 06-03-2022 [facility] [facility] Start: 05-27-[address] [facility] Start: 2006 Screening for malign ant neoplasm of breast Mammogram [facility] Start: 1996 Screening for malign ant neoplasm of cervix [facility] Start: 1987 Screening for malign ant neoplasm of cervix Pap Smear [facility] Start: 1985 Administration of va ricella zoster vaccine Zoster (Shingles) Vaccine (1 of 2) [facility] Start: 1985 DTaP,Tdap and Td Vac cines (1 - Tdap) DTaP,Tdap and Td Vaccines (1 - Tdap) [facility] Start: 1984 Adult BMI Follow Up Plan Adult BMI Follow Up Plan [facility] Start: 1978 Depression Screening Depression Scre ening [facility] Start: 1966 Screening for malign ant neoplasm of colon [facility] Alanine aminotransfe rase [Enzymatic activity/volume] in Serum or Plasma by No addition of P-5'-P [facility] Work Phone: Alanine aminotransfe rase [Enzymatic activity/volume] in Serum or Plasma by No addition of P-5'-P [facility] Albumin [Mass/volume ] in Serum or Plasma [facility] Work Phone: Albumin [Mass/volume ] in Serum or Plasma [facility] Albumin/Globulin ratio [facility] Work Phone: Albumin/Globulin ratio [facility] Alkaline phosphatase [Enzymatic activity/volume] in Serum or Plasma [facility] Work Phone: Alkaline phosphatase [Enzymatic activity/volume] in Serum or Plasma [facility] Anion gap measurement [facility] Work Phone: Anion gap measurement [facility] Aspartate aminotrans ferase [Enzymatic activity/volume] in Serum or Plasma [facility] Work Phone: Aspartate aminotrans ferase [Enzymatic activity/volume] in Serum or Plasma [facility] Basophil count [facility] Work Phone: Basophil percent differential count [facility] Work Phone: Bilirubin.total [Mass/volume] in Serum or Plasma [facility] Work Phone: Bilirubin.total [Mass/volume] in Serum or Plasma [facility] Calcium [Mass/volume ] in Serum or Plasma [facility] Work Phone: Calcium [Mass/volume ] in Serum or Plasma [facility] Carbon dioxide, tota l [Moles/volume] in Serum or Plasma [facility] Work Phone: Carbon dioxide, tota l [Moles/volume] in Serum or Plasma [facility] Carcinoembryonic Ag [Mass/volume] in Serum or Plasma [facility] Chloride [Moles/volu me] in Serum or Plasma [facility] Work Phone: Chloride [Moles/volu me] in Serum or Plasma [facility] Choriogonadotropin ( test) [Presence] in Urine [facility] Comprehensive metabo lic 1999 panel - Serum or Plasma [facility] Comprehensive metabo lic 1999 panel - Serum or Plasma [facility] Comprehensive metabo lic 1999 panel - Serum or Plasma [facility] Comprehensive metabo lic 1999 panel - Serum or Plasma [facility] Comprehensive metabo lic 1999 panel - Serum or Plasma [facility] Comprehensive metabo lic 1999 panel - Serum or Plasma [facility] Comprehensive metabo lic 1999 panel - Serum or Plasma [facility] Comprehensive metabo lic 1999 panel - Serum or Plasma [facility] Comprehensive metabo lic 1999 panel - Serum or Plasma [facility] Comprehensive metabo lic 1999 panel - Serum or Plasma [facility] Comprehensive metabo lic 1999 panel - Serum or Plasma [facility] Comprehensive metabo lic 1999 panel - Serum or Plasma [facility] Comprehensive metabo lic 1999 panel - Serum or Plasma [facility] Comprehensive metabo lic 1999 panel - Serum or Plasma [facility] Comprehensive metabo lic 1999 panel - Serum or Plasma [facility] Creatinine and Glome rular filtration rate.predicted panel - Serum, Plasma or Blood [facility] Work Phone: Creatinine and Glome rular filtration rate.predicted panel - Serum, Plasma or Blood [facility] CT Abdomen and Pelvi s W contrast IV [facility] CT Abdomen and Pelvi s W contrast IV [facility] CT Abdomen and Pelvi s W contrast IV [facility] CT Abdomen and Pelvi s W contrast IV [facility] CT Abdomen and Pelvi s W contrast IV [facility] CT Abdomen and Pelvi s W contrast IV [facility] CT Chest W contrast IV [facility] CT Chest W contrast IV [facility] CT Chest W contrast IV [facility] CT Chest W contrast IV [facility] CT Chest W contrast IV [facility] CT Chest W contrast IV [facility] Eosinophil percent differential count [facility] Work Phone: Eosinophils [#/volum e] in Blood [facility] Work Phone: Erythrocyte mean cor puscular volume determination [facility] Work Phone: Erythrocytes [#/volu me] in Blood [facility] Work Phone: Globulin [Mass/volum e] in Serum [facility] Work Phone: Globulin [Mass/volum e] in Serum [facility] Glucose [Mass/volume ] in Serum or Plasma [facility] Work Phone: Glucose [Mass/volume ] in Serum or Plasma [facility] Hematocrit [Volume F raction] of Blood [facility] Work Phone: Hemoglobin [Mass/vol ume] in Blood [facility] Work Phone: Hemoglobin distribut ion, width determination [facility] Work Phone: Leukocytes [#/volume ] in Blood [facility] Work Phone: Lymphocyte count [facility] Work Phone: Lymphocyte percent differential count [facility] Work Phone: Magnesium measurement [facility] Magnesium measurement [facility] Magnesium measurement [facility] Mean corpuscular hem oglobin concentration determination [facility] Work Phone: Mean corpuscular hem oglobin determination [facility] Work Phone: Measurement of renal function [facility] Work Phone: Measurement of renal function [facility] MG Breast - bilatera l Screening [facility] Monocyte count [facility] Work Phone: Monocyte percent differential count [facility] Work Phone: Neutrophil count [facility] Work Phone: Neutrophil percent differential count [facility] Work Phone: Patient Education [facility] Work Phone: Patient referral [facility] Work Phone: Platelet mean volume determination [facility] Work Phone: Platelets [#/volume] in Blood [facility] Work Phone: Potassium [Moles/vol ume] in Serum or Plasma [facility] Work Phone: Potassium [Moles/vol ume] in Serum or Plasma [facility] Protein [Mass/volume ] in Serum or Plasma [facility] Work Phone: Protein [Mass/volume ] in Serum or Plasma [facility] Sodium [Moles/volume ] in Serum or Plasma [facility] Work Phone: Sodium [Moles/volume ] in Serum or Plasma [facility] Urea nitrogen [Mass/ volume] in Serum or Plasma [facility] Work Phone: Urea nitrogen [Mass/ volume] in Serum or Plasma [facility] Immunizations Immunization Date Immunization Notes Care Provider [facility] 05-18-2024 influenza virus vaccine, unspecified formulation Carlyn Turner NP Work Phone: [facility] 05-16-2022 SARS-CoV-2 (COVID-19 ) [id number].[id number] Clint LEAVITT [facility] [place] 04-27-2021 SARS-CoV-2 (COVID-19 ) mRNA-1273 vaccine Clint LEAVITT [facility] [place] 08-02-2020 SARS-CoV-2 (COVID-19 ) mRNA-1273 vaccine Clint LEAVITT [facility] 07-04-2020 SARS-CoV-2 (COVID-19 ) mRNA-1273 vaccine Clint LEAVITT [facility] Payers Date Payer Category Payer Private Health Insurance [id number] 2024 Self-pay 2022 [facility] er [id number] 2022 Unknown KAYLEY NARAYANAN SS (PPO) [id number] 2022- [phone] [id number] [place] [address] [id number]. [id number] 2022 Unknown [id number] 2019 Unknown [id number] 1966 Unknown [id number] 2.16.840.1.293580.3.579.2. 593 1966 Unknown [id number] 2.16.840.1.102538.3.579.2. 593 1966 Unknown [id number] 2.16.840.1.231520.3.579.2. 593 1966 Unknown [id number] 2.16.840.1.453099.3.579.2. 593 1966 Unknown [id number] 2.16.840.1.921350.3.579.2. 593 1966 Unknown [id number] 2.16.840.1.969044.3.579.2. 593 1966 Unknown [id number] 2.16.840.1.968402.3.579.2. 593 1966 Unknown [id number] 2.16.840.1.317464.3.579.2. 593 1966 Unknown [id number] 2.16.840.1.854196.3.579.2. 59 1966 Unknown [id number] 2.16.840.1.821679.3.579.2. 593 1966 Unknown [id number] 2.16.840.1.234927.3.579.2. 593 1966 Unknown [id number] 2.16.840.1.886609.3.579.2. 593 1966 Unknown [id number] 2.16.840.1.320132.3.579.2. 593 1966 Unknown [id number] 2.16.840.1.661280.3.579.2. 593 1966 Unknown [id number] 2.16.840.1.849557.3.579.2. 593 1966 Unknown [id number] 2.16.840.1.907376.3.579.2. 593 1966 Unknown [id number] 2.16.840.1.400163.3.579.2. 593 1966 Unknown [id number] 2.16.840.1.247346.3.579.2. 593 1966 Unknown [id number] 2.16.840.1.634338.3.579.2. 593 1966 Unknown [id number] 2.16.840.1.865380.3.579.2. 593 1966 Unknown [id number] 2.16.840.1.889410.3.579.2. 593 1966 Unknown [id number] 2.16.840.1.125427.3.579.2. 593 1966 Unknown [id number] 2.16.840.1.139239.3.579.2. 593 1966 Unknown [id number] 2.16.840.1.744018.3.579.2. 593 1966 Unknown [id number] 2.16.840.1.662368.3.579.2. 1286 1966 Unknown [id number] 2.16.840.1.290255.3.579.2. 1286 1966 Unknown [id number] 2.16.840.1.769237.3.579.2. 1286 1966 Unknown [id number] 2.16.840.1.579696.3.579.2. 1259 1966 Unknown [id number] 2.16.840.1.428468.3.579.2. 727 1966 Unknown [id number] 2.16.840.1.198700.3.579.2. 182 1966 Unknown [id number] 2.16.840.1.480482.3.579.2. 182 Unknown [id number] Unknown [id number] 2.16.840.1.565641.3.579.2. 531 Unknown [id number] 2.16.840.1.639037.3.579.2. 531 Unknown [id number] 2.16.840.1.735494.3.579.2. 531 Social History Date Type Detail Facility Start: 05-27-2022 End: 04-13-2025 Tobacco smoking status NHIS Never smoked tobacco (finding) [facility] Start: 1965 Sex Assigned At Female F [facility] Start: 03-03-2024 End: 12-21-2024 Sex Assigned At [facility] Other Start: 04-19-2022 Tobacco smoking status NHIS Ex-smoker [facility] History of tobacco use Current smoker [facility] History of tobacco use Cigarette Smoker [facility] Start: 04-19-2022 End: 12-21-2024 Tobacco use and exposure Smokeless tobacco non-user [facility] Start: 03-03-2024 End: 12-21-2024 Alcoholic beverage intake Current drinker of alcohol (finding) [facility] Start: 03-03-2024 End: 12-21-2024 History of Social function [facility] Within the past 12 months we worried whether our food would run out before we got money to buy more. Never True [facility] Start: 04-19-2022 Tobacco Comment smoked when pa tient was 18 for 6 months [facility] Start: 05-01-2023 Alcohol Comment occasionally [facility] Start: 1965 Sex assigned at Not on file P [facility] Start: 09-06-2024 End: 12-14-2024 Sex Female (finding) [facility] Tobacco smoking status NHIS Tobacco smoking consumption unknown [facility] Start: 12-21-2024 Alcohol Comment occ [facility] Sexual Orientation [facility] [place] NEGATED: Highlighted row N [facility] Goals Date Patient Goal Desired Activity [...] anxiety, glaucoma, recurrent colon cancer, referred for pfnuly-j-jmic insertion; patient has h/o sigmoid colectomy in [...] Malignant neoplasm of colon, unspecified) plan right lxvobq-n-etgj insertion under anesthesia; informed consent obtained. Ancef [...] Father. Immunizations Vaccine Date Status SARS-CoV-2 (COVID-19) mRNAMUL.[id number] 05/16/2022 Recorded SARS-CoV-2 (COVID-19) mRNA-1273 vaccine 04/27/2021 Recorded SARS-CoV-2 (COVID-19) mRNA-1273 vaccine 08/02/2020 Recorded SARS-CoV-2 (COVID-19) mRNA-1 (more content not included)... [facility] Comment on above: Result Comment: Elec [...] gland hypertrophy 12/20/2024 Situational anxiety 12/20/2024 bleeding ([facility]) 05/15/2022 Resolved Ambulatory Problems Diagnosis [...] no improvement. documented in this encounter [facility] 12-14-2024 Chief complaint+R dada for visit [...] 7am Screening mammogram for breast cancer [place] 20[place] 10:37am Wellness examination December 20, 2024 10: 37am [facility] Work Phone: 1([phone]) 463-979806-10-2025 Evaluation note* Diagnosis Onset Date Resolution Status Admit Date GERD (gastroesophageal reflu x disease) acute December 14, 2024 9:27am Pharyngitis, chronic acute December 14, 2024 9:27am Globus sensation acute December 10:37am Screening mammogram for binh st cancer acute December 20, 2024 10:37am Wellness examination acute December 20, 2024 10:37am [facility] Work Phone: 1(315) 254-517512-26-2024 Evaluation note* Diagnosis Onset Date Resolution Status Admit Date Osteoarthritis acute June 072023 10:57am Situational anxiety acute Decem 2023 10:57am Abnormal LFTs acute September 06, 2024 1:19pm Chemotherapy-induced periphe ral neuropathy acute September 06, 2024 1:19pm Colon cancer acute September 06, 2 025 1:19pm Encounter for chemotherapy management acute September 06, 2024 1:19pm [facility] Work Phone: 1(559) 371-849209-19-2024 History of Present illness Narrative* Masha Richardson, OLIVIA-SWITCHBOARD INSPECTOR - 03/25/2024 11:00 AM EDT Subjective Marysol [...] of removal of Port-a-Cath [Z98.890] RAEGAN TAYLOR [facility] [place] This note was created with the assistance of a speech recognition program. While intending to generate a timely document that accurately reflects the content of the visit, no guarantee can be provided that every grammatical or spelling mistake has been or will be identified or corrected. Thank you for your understanding. RAEGAN Taylor 03/25/24 1143 documented in [facility] History of Present illness Narrative* Clint Jean [...] weeks for suture removal. documented in this encounter[facility] History of Present illness Narrative* Clint Klever DO Ita - 03/03/2024 10:15 AM EDT Images from the original note were not included. [facility] [id number] Progress NOTE CHIEF COMPLAINT Chief Complaint Patient [...] a history of colon cancer resected by az April 10, 2022 at the [facility]. Her last colonoscopy was in May, and was normal. 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 MEDICATION Current Outpatient Medications: brimonidine (ALPHAGAN) [...] by mouth daily., Disp: , Rfl: omega 2-uyo-qqd-fish oil (Fish OiL) 300-1,000 mg capsule, Take by mouth., Disp: , Rfl: omeprazole (PriLOSEC) 20 mg capsule, PATIENT REPORTS NEEDED , Disp: , Rfl: ALLERGY Allergies Allergen Reactions Hydrocodone Nausea And Vomiting Patient reports it was many years ago Codeine GI Disturbance MEDICAL HISTORY Past Medical History: Diagnosis Date Colon cancer ([facility] Female pelvic congestion syndrome 02/20/2023 Glaucoma of both eyes bleeding SURGICAL HISTORY Past Surgical History: Procedure Laterality Date SECTION HERNIA REPAIR inguinal hernia LEFT COLECTOMY SIGMOID COLON RESECTION BY DR JEAN BAPTISTE, AT [facility] WISDOM TOOTH EXTRACTION SOCIAL HISTORY Social [...] patient/family/caregiver Referring and communicating with other health care giver History of colon cancer [Z85.038] Clint Jean Baptiste DO This note was created with the assistance of a speech recognition program. While intending to generate a timely document that accurately reflects the content of the visit, no guarantee can be provided that every grammatical or spelling mistake has been or will be identified or corrected. Thank you for your understanding. documented in this encounterUniversity [facility]-13-2023 Evaluation note* Encounter Date Diagnosis Assessment Notes [...] for PT printed and given to pt. [facility] Other 09-18-2023 Progress note Author Isaías Jordan [facility] March 24, 2023 11:05am Note Date/Time March 24, 2023 10:55am [facility] [place] [id number] Hem/Onc Follow Up Note - OP Signed Patient: Marysol Gardner MR#: [id number] : 1965 Acct:[id number] Age/Sex: 57 / F Type: REG RCR [...] prior to f/u. f/u with me or telephone directory deliverer in may/jun. renew her celebrex prescription. - History of Present Illness Chief Complaint: Patient is here for a 5 month follow up with labs and outside notes and radiology for review. 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 Labs reviewed on patient's chart from [place] - no significant cytopenias or electrolyte, renal/hepatic [...] from visiting her mother and family in [place]. She has no neuropathy at all. last [...] Also engorged periuterine vessels. She has seen globe changer. she had transvaginal ultrasound. This will be monitored. Her TECHNICAL SERVICES ASSISTANT has offered her a dexa scan. Her [...] for coordination of care (as documented) and tjgn-pd-kqys counseling of patient and/or family. [facility] - Medical History Medical History: Medical History [...] % (Auto) 47.6, Lymph % (Auto) 39.4, [place] % (Auto) 9.0, Eos % (Auto) 2.8, Baso % (Auto) 1.2, Nucleat RBC Rel Count 0.1, Neut # (Auto) 2.4, Lymph # (Auto) 2.0, [place] # (Auto) 0.5, Eos # (Auto) 0.1, [...] by Isaías Jordan II, DO> 03/24/23 1105 [facility] Work Phone: 1(656) 743-971704-17-2023 Progress note Author Isaías Jordan 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 Labs reviewed on patient's chart from [place] - no significant cytopenias or electrolyte, renal/hepatic [...] from visiting her mother and family in [place]. She has no neuropathy at all. last [...] for coordination of care (as documented) and aclu-za-hora counseling of patient and/or family. [facility] - Medical History Medical History: Medical History [...] by Isaías Jordan II DO> 10/21/22 0850 [facility] Work Phone: 1(843) 577-942202-27-2023 Progress note Author Isaías Jordan [facility] September 02, 2022 9:09am Note Date/Time September 02, 2022 8:58am [facility] [place] [id number] Hem/Onc Follow Up Note - OP Signed Patient: Marysol Gardner MR#: [id number] : 1965 Acct:[id number] Age/Sex: 57 / F Type: REG RCR [...] 4 or 6 weeks with me or telephone directory deliverer. - History of Present Illness Chief Complaint: Patient is here for a 2 week follow up with outside labs for review, prior to treatment today. States she is feeling remarkably better. 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 Labs reviewed on patient's chart from [place] - no significant cytopenias or electrolyte, renal/hepatic [...] for coordination of care (as documented) and hayp-nj-byou counseling of patient and/or family. [facility] - Medical History Medical History: Medical History [...] by Isaías Jordan II, DO> 09/02/22 0909 [facility] Work Phone: 1([phone]) 127-178702-13-2023 Hospital Discharge instructionsAmbulatory Orders* Proceed with Treatment Time Frame: 08/19/22, Location: Determined By Patient [facility] Work Phone: 1(368) 284-329402-13-2023 Hospital Discharge instructionsAmbulatory Orders* Proceed with Treatment Time Frame: 08/19/22, Location: Determined By Patient * Proceed with Treatment Time Frame: 09/02/22, Location: Determined By Patient * RISE Order Time Frame: 1 Week, Location: Determined By Patient [facility] Work Phone: 1(224) 315-516802-13-2023 Hospital Discharge instructionsAmbulatory Orders* Proceed with Treatment Time Frame: 08/19/22, Location: Determined By Patient * Proceed with Treatment Time Frame: 09/02/22, Location: Determined By Patient * RISE Order Time Frame: 1 Week, Location: Determined By Patient * Referral to General Surgery Time Frame: 04/04/25, Location: None Selected [facility] Work Phone: 1(846) 360-486702-13-2023 Progress note Author Dayansamantha Magallon [facility] August 19, 2022 11:20am Note Date/Time August 19, 2022 11:14am [facility] [place] [address] Hem/Onc Follow Up Note - OP Signed Patient: Marysol Gardner MR#: [id number] : 1965 Acct:[id number] Age/Sex: 57 / F Type: REG RCR Copies to: MD Clint Bernstein,DO~ Subjective Date/Time of Service: Date of Service: 08/19/2022 Time of Service: 11:12 Chief Complaint: Patient is here for a 1 month follow up with labs for review, prior to treatment today. No concerns voiced. 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 Labs reviewed on patient's chart from [place] - no significant cytopenias or electrolyte, renal/hepatic [...] for coordination of care (as documented) and qyza-sj-ybwu counseling of patient and/or family. Dictated By: Dayan Magallon APRN DD/ 11 Signed By: <Electronically signed by OLIVIA Magallon> 08/19/22 1120 [facility] Work Phone: 1(247) 934-287901-16-2023 Progress note Author Dayan Magallon [facility] July 22, 2022 11:46am Note Date/Time July 22, 2022 1 1:36am [facility] at [address] [address] Hem/Onc Follow Up Note - OP Signed Patient: Marysol Gardner MR#: [id number] : 1965 Acct:[id number] Age/Sex: 57 / F Type: REG RCR Copies to: MD Clint Bernstein,DO~ Subjective Date/Time of Service: Date of Service: 07/22/2022 Time of Service: 11:34 Chief Complaint: Patient is here today for a one month follow up visit for coloncancer and go over labs. 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 Labs reviewed on patient's chart from [place] - no significant cytopenias or electrolyte, renal/hepatic [...] 10 point review of systems is negative. [facility] - Medical History Medical History: Medical History [...] for coordination of care (as documented) and rlac-vg-arlu counseling of patient and/or family. Dictated By: Dayan Magallon APRN DD/ 1134 Signed By: <Electronically signed by OLIVIA Magallon> 07/22/22 1146 [facility] Work Phone: 1(167) 194-923212-19-2022 Progress note Author Isaías Jordan [facility] June 24, 2022 9:49am Note Date/Time June 24, 2022 9:42am [facility] [place] [address] Hem/Onc Follow Up Note - OP Signed Patient: Marysol Gardner MR#: [id number] : 1965 Acct:[id number] Age/Sex: 57 / F Type: REG RCR [...] cotn folfox q2wks. f/u with me or telephone directory deliverer in a month. cbc, cmp on treatemet days. cea prior to f/u. 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 Labs reviewed on patient's chart from [place] - no significant cytopenias or electrolyte, renal/hepatic [...] for coordination of care (as documented) and vvsc-nv-emwh counseling of patient and/or family. [facility] - Medical History Medical History: Medical History [...] by Isaías Jordan II, DO> 06/24/22 0949 [facility] Work Phone: 1(822) 199-680511-28-2022 Progress note Author Dayan Magallon 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 Labs reviewed on patient's chart from [place] - no significant cytopenias or electrolyte, renal/hepatic issues. - Summary of Therapies Summary of Therapies: FOLFOX chemotherapy (adjuvant) 1. Cycle 1, Day 1: 05/27/2022 Subjective/ROS - Narrative: As per the HPI, otherwise 10 point review of systems is negative. [facility] - Medical History Medical History: Medical History [...] back to work today, works at [employer] as a nurse. - plan Cycle 2, [...] for coordination of care (as documented) and hxit-wr-bung counseling of patient and/or family. Dictated By: Dayan Magallon APRN DD/ 0814 Signed By: <Electronically signed by OLIVIA Magallon> 06/03/22 0841 [facility] Work Phone: 1(155) 750-502511-21-2022 Progress note Author Isaías Muñozmiri 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 She began having irregular [...] 13, 2022, scope could not be passed sbvvca60 cm due to a tumor in the [...] for coordination of care (as documented) and vmzo-sz-nakq counseling of patient and/or family. [facility] - Medical History Medical History: Medical History [...] by Isaías Jordan II, DO> 05/27/22 0953 [facility] Work Phone: 1(557) 259-680710-28-2022 Progress note Author Isaías Jordan 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 She began having irregular [...] 13, 2022, scope could not be passed [id number] cm due to a tumor in the [...] for coordination of care (as documented) and hosn-il-vjdv counseling of patient and/or family. [facility] - Medical History Medical History: Medical History [...] by Isaías Jordan II, DO> 05/03/22 1528 [facility] Work Phone: 1(295) 846-174710-01-2022 History general Narrative - Reported* Type Description Date Medical History Colon cancer Medical History Pelvic congestion syndrome Surgical History Bowel resection 04/2022 Surgical History C -Section 2005 Surgical History Hernia repair 2001 Surgical History [place] teeth [employer] Other 09-07-2022 NoteOPERATIVE NOTE OPERATION DATE: 03/13/2022 [...] the abdomen and pelvis performed at the [facility], January 09, which was read as [...] diagnosis, then she will need surgical therapy.[facility] NotePatient Education Materials Follows: Laceration Care, Adult [...] needed: ? Soap. ? Water. ? Hand machine iii coremaker. ? Bandage (dressing). ? Antibiotic ointment. ? Clean towel. How to take care of your cut Wash your hands with soap and water before touching your wound or changing your bandage. If soap and water are not available, use hand machine iii coremaker. If your doctor used stitches or yuridia: [...] off the skin. General instructions ? Take ydpa-iba-fgfxwye and prescription medicines only as told by [...] on your body. (more content not included)...[facility] complaint+Reason for visit Narrative* Chief Complaint Admit Date Sore Throat/ENT Referral December 14, 2024 9:27am Reason for Visit Admit Date Pharyngitis, chronic December 14, 2024 9:2 7am [facility] Work Phone: evaluation + Plan note No data available for this section [facility] Evaluation note* Diagnosis Onset Date Resolution Status Colon cancer acute Encounter for chemotherapy management acute [facility] Work Phone: evaluation note* Diagnosis Onset Date Resolution Status Abnormal LFTs acute Chemotherapy-induced peripheral neuropathy acute Colon cancer acute Encounter for chemotherapy management acute [facility] Work Phone: evaluation noteNo assessment information available [facility] Work Phone: evalujczsj note* Diagnosis Onset Date Resolution Status Colon cancer acute Abnormal LFTs acute Chemotherapy-induced peripheral neuropathy acute Colon cancer acute Encounter for chemotherapy management acute Salivary gland hypertrophy a cute [facility] Work Phone: evaluation note* Diagnosis Onset Date Resolution Status Salivary gland hypertrophy a cute Abnormal LFTs acute Chemotherapy-induced peripheral neuropathy acute Colon cancer acute Encounter for chemotherapy management acute [facility] Work Phone: evaluation note* Diagnosis History of colon cancer- Primary Personal history of malignant neoplasm of large intestine documented in [facility] encounter [facility]* Diagnosis History of colon cancer- Primary Personal history of malignant neoplasm of large intestine documented in this encounter [facility]* Diagnosis History of removal of Mgmt-s-Vway- Primary History of colon cancer Personal history of malignant neoplasm of large intestine [facility] Diagnosis Onset Date Resolution Status Admit Date Pharyngitis, chronic acute December 14, 2024 9:27am [facility] Work Phone: Evaluation note* Diagnosis Globus sensation- Primary Gastrointestinal malfunction arising from mental factors LPRD (laryngopharyngeal reflux disease) Acute laryngitis, without mention of obstruction documented in this encounter [facility] HealthcareEvaluation note* Diagnosis Onset Date Resolution Status Admit Date Abnormal LFTs acute March 072024 1:07pm Chemotherapy-induced peripheral neuropathy acute March 21, 2025 1:07pm Colon cancer acute March 212024 1:07pm Encounter for chemotherapy management acute March 21, 2025 1:07pm [facility] Work Phone: Evaluation note* Diagnosis Onset Date Resolution Status Admit Date Abnormal LFTs acute March 082024 1:09pm 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, 2025 1:09pm Colon cancer acute April 042024 1:09pm Encounter for chemotherapy management acute April 04, 2025 1:09pm [facility] Work Phone: Hospital Discharge instructionsAmbulatory Orders* Proceed with Treatment Time Frame: 08/19/22, Location: Determined By Patient [facility] Work Phone: Hospital Discharge instructionsAmbulatory Orders* Referral to ENT Time Frame: 11/17/23, Location: None Selected [facility] Work Phone: Hospital Discharge instructionsAmbulatory Orders* Referral to ENT Time Frame: 12/14/24, Location: None [facility] Work Phone: Hospital Discharge instructions Additional Instructions [...] NOT operate machinery such as power tools, DeskGodn mowers, GlassUp blowers, sewing machines, etc. for 24 hours. [...] problems. -Follow up with PCP. -Office number [phone]. [facility] Work Phone: Hospital Discharge instructions No data available for this section [facility] General Surgery [place] InstructionsNot on filedocumented in this encounter [facility] filed[facility]ed in this [facility] filedocumented in this encounter [facility] Author Dayan Magallon 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 Labs reviewed on patient's chart from [place] - no significant cytopenias or electrolyte, renal/hepatic issues. - Summary of Therapies Summary of Therapies: FOLFOX chemotherapy (adjuvant) 1. Cycle 1, Day 1: 05/27/2022 Subjective/ROS - Narrative: As per the HPI, otherwise 10 point review of systems is negative. 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 - plan Cycle 2, [...] for coordination of care (as documented) and kmyy-pr-ipks counseling of patient and/or family. Dictated By: Dayan Magallon APRN DD/ 3 Signed By: <Electronically signed by OLIVIA Magallon> 06/03/22840 [facility] Work Phone: Progress note Author Isaías Jordan [facility] June 24, 2022 9:49am Note Date/Time June 24, 2022 9:42am [facility] [place] [address] Hem/Onc Follow Up Note - OP Signed Patient: Marysol Gardner MR#: [id number] : 1965 Acct:[id number] Age/Sex: 57 / F Type: REG RCR [...] cotn folfox q2wks. f/u with me or telephone directory deliverer in a month. cbc, cmp on treatemet days. cea prior to f/u. 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 Labs reviewed on patient's chart from [place] - no significant cytopenias or electrolyte, renal/hepatic [...] for coordination of care (as documented) and xchd-vv-kkak counseling of patient and/or family. [facility] - Medical History Medical History: Medical History [...] by Isaías Jordan II, DO> 06/24/22 0949 [facility] Work Phone: Progress note Author Dayan Magallon [facility] July 22, 2022 11:46am Note Date/Time July 22, 2022 1 1:36am [facility] [place] [address] Hem/Onc Follow Up Note - OP Signed Patient: Marysol Gardner MR#: [id number] : 1965 Acct:[id number] Age/Sex: 57 / F Type: REG RCR Copies to: MD Clint Bernstein DO~ Subjective Date/Time of Service: Date of Service: 07/22/2022 Time of Service: 11:34 Chief Complaint: Patient is here today for a one month follow up visit for coloncancer and go over labs. 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 Labs reviewed on patient's chart from [place] - no significant cytopenias or electrolyte, renal/hepatic [...] 10 point review of systems is negative. [facility] - Medical History Medical History: Medical History [...] for coordination of care (as documented) and agtz-ri-ranj counseling of patient and/or family. Dictated By: Dayan Magallon APRN DD/ 1134 Signed By: <Electronically signed by OLIVIA Magallon> 07/22/22 1146 [facility] Work Phone: Progress note Author Isaías Jordan [facility] September 02, 2022 9:09am Note Date/Time September 02, 2022 8:58am [facility] [place] [address] Hem/Onc Follow Up Note - OP Signed Patient: Marysol Gardner MR#: [id number] : 1965 Acct:[id number] Age/Sex: 57 / F Type: REG RCR [...] 4 or 6 weeks with me or telephone directory deliverer. - History of Present Illness Chief Complaint: Patient is here for a 2 week follow up with outside labs for review, prior to treatment today. States she is feeling remarkably better. 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 Labs reviewed on patient's chart from [place] - no significant cytopenias or electrolyte, renal/hepatic [...] for coordination of care (as documented) and hyta-dj-rbhc counseling of patient and/or family. [facility] - Medical History Medical History: Medical History [...] by Isaías Jordan II, DO> 09/02/22 0909 [facility] Work Phone: Progress note Author Isaías Jordan 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 Labs reviewed on patient's chart from [place] - no significant cytopenias or electrolyte, renal/hepatic [...] Also engorged periuterine vessels. She has seen globe changer. she had transvaginal ultrasound. This will be monitored. Her TECHNICAL SERVICES ASSISTANT has offered her a dexa scan. Her [...] january with no evidence recurrence. done at [facility]. Intake Vitals/Pain Assessment 01/19/24 11:22 Height 5 [...] latanoprost 0.005% 1 drp Eye-Both QPM omega 2-igw-qay-fish oil 300-1,000 mg (Fish Oil) 1 cap [...] No concerns voiced at time of intake. [facility] History Attestation statement: The following information was validated with the patient. Medical History Medical History delivery delivered Colon cancer Cancer (03/26/22) COVID bleeding Glaucoma of both eyes Surgical History Surgical History [place] teeth extracted S/P hernia repair History of [...] by Isaías Jordan II, DO> 01/19/24 1205 [facility] Work Phone: Progress note No data available for this section [facility] [place] Reason for referral (narrative)No reason for referral [facility] Work Phone: Summary Purpose Family History [...] management [facility] 2024 1:19pm Chief Complaint Admit Date EGD [...] DATE CREATED AUTHOR AUTHOR'S ORGANIZ ATION 12/23/2024 [facility] EPIC DATE CREATED AUTHOR AUTHOR'S ORGANIZ ATION 04/08/2025 [facility] DATE CREATED AUTHOR AUTHOR'S ORGANIZ ATION 04/14/2025 [facility] DATE CREATED AUTHOR AUTHOR'S ORGANIZ ATION 04/14/2025 [facility] Care Teams (unrecognized sec tion and content) Personnel Name: SANDRO CHIN MD Address: [address] [place] [address] Telecom: Team Status: Active Member Role Status [...] Dates NON STAFF Primary Care Provider Active Plastics Seasoner Operator Relationship Specialty Start Date End Date Sandro Chin MD [address] [place] [phone] PCP - General Family Medicine 03/19/23 Plastics Seasoner Operator Relationship Specialty Start Date End Date Sandro Chin MD [address] [place] [address] PCP - General Family Medicine 03/19/23 Team [...] December 14, 2024 End: December 14, 2024 Plastics Seasoner Operator Relationship Specialty Start Date End Date Sandro Chin MD [address] [place] [phone] PCP - General Family Medicine 12/14/24 Plastics Seasoner Operator Relationship Specialty Start Date End Date Sandro Chin MD [address] [place] [phone] PCP - General Family Medicine 12/14/24 Team [...] December 20, 2024 End: December 20, 2024 Plastics Seasoner Operator Relationship Specialty Start Date End Date Sandro Chin MD [address] [facility] [place] [phone] PCP - General Family Medicine 12/14/24 Team [...] Otolaryngology Diagnoses Other seasonal allergic rhinitis Procedures RI UNLISTED EVALUATION AND MANAGEMENT SERVICE [facility] [address] [place] [address] Phone: tel: fax: Constantino Martinez MD [address] [place] [address] Phone: tel: fax: Referral ID Status Reason Start Date Expiration Date Visits Re quested Visits Authorized [id number] Closed 12/14/2024 06/12/2025 1 1 FOR RECORDS [...] BE BASED ON THE PRIMARY CLINICAL RECORDS. [facility] [employer] [facility]. provides no warranty or guarantee of the accuracy or completeness of information in this document.
[2025-04-20] MEDS: CEFAZOLIN SODIUM 2 GM/50 ML D5W PREMIX IV (10:42)
[2025-04-20] MEDS: HEPARIN SODIUM (PORCINE) PF LOCK FLUSH 500 UNIT/5 ML SYRINGE 1000 UNIT INJ (11:50)
[2025-04-20] MEDS: BUPIVACAINE HCL 0.5% PF 50 MG/10 ML VIAL INJ (11:56)
--- NOTE | 2025-04-20 12:25 | XR_ITS ---
[address] [address] Patient Name: SHU GARDNER MRN: [id number] date: 1965 Sex: F Assigned Patient Location: SURGOUT Current Patient Location: [facility] Accession/Order Number: [id number] Exam Date: 04/20/2025 12:35 Report Date: 04/20/2025 13:26 At the request of: CLINT LEAVITT MD Procedure: XR chest 1V Single view chest: CLINICAL HISTORY: s/p port insertion COMPARISON: None FINDINGS: Right-sided port tip in the SVC. Heart is normal in size. No pneumothorax. No free air. XR/XR chest 1V IMPRESSION: RIGHT-SIDED PORT TIP IN THE SVC. NO PNEUMOTHORAX. Impression dictated by: Andres Wallis Jr., DJenniferOJennifer 04/20/2025 1:26 PM Dictation Location: [place] [address] Electronically authenticated by: [id number] Y Date: 04/20/2025 13:26
[2025-04-20] MEDS: ACETAMINOPHEN 500 MG TABLET 1000 MG PO (12:43)
== END 2025-04-20 13:49 | disposition home or self-care (01) ==
LOC: SURGOUT 09:16
PROVIDERS: PCP Family Medicine; Visit Provider Surgery
PROC: (CPT 532; principal; 2025-04-20 10:00)
DX: C18.9 Malignant neoplasm of colon, unspecified (principal); R91.8 Other nonspecific abnormal finding of lung field; K21.9 Gastro-esophageal reflux disease without esophagitis; F41.9 Anxiety disorder, unspecified; Z90.49 Acquired absence of other specified parts of digestive tract; H40.9 Unspecified glaucoma
CPT/HCPCS: 36561; 71045; 76000; C1788; J0665; J0690; J1100; J1642; J1885; J2250; J2405; J2704; J3010

== ENCOUNTER 2025-04-23 07:21 | Outpatient (OUT) | payer BC, SELFPAY ==
--- OUTSIDE RECORDS SUMMARY | 2025-04-23 07:26 | XMS_ITS | Encounter Summary ---
Author Organization [facility] Address [address] [place] [address] Care Team Providers Care Oven Loader Name Role Phone Melissa Worthy MD Primary Care Provider [phone] Encounter Details Date Type Department Care Team (Late st Contact Info) Description 03/30/2025 External Result Encounter [facility] External Department Unsolicited Timmy Jordan, DO [address] [place] [address] Social History Tobacco Use Types Packs/Day Years [...] Jr., D.O. 03/30/2025 11:44 AM Dictation Location: [facility]--22 Transcribed By: PWS 03/30/25 1144 Dictated By: Andres Wallis Jr, DO 03/30/25 1134 Signed By: <Electronically signed by Andres Wallis Jr, DO in OV> 03/30/25 1144 Narrative 03/30/2025 11:[address] [facility] [address] Nuclear Medicine Report Signed Patient: Marysol Jacobson MR#: [id number] 22 : 1965 Acct:[id number] Age/Sex: 59 / F ADM Date: 03/30/25 Loc: Room: Type: [facility] RCR Attending Dr: Carlyn Turner APRN [...] Procedure Note Andres Wallis Jr., - 03/30/2025 [facility] [place] [address] [place] [address] Nuclear Medicine Report Signed Patient: Marysol JacobsonMR#: [id number] 22 : 1965Acct:[id number] Age/Sex: 59 / FADM Date: 03/30/25 Loc: Room:Type: [facility] Attending Dr: Carlyn Turner APRN Copies [...] Jr., D.OJennifer 03/30/2025 11:44 AM Dictation Location: [place] [address] Transcribed By: [facility] 03/30/25 1144 Dictated By: Andres Wallis Jr, DO 03/30/25 1134 Signed By: <Electronically signed by Andres Wallis Jr, DO inOV> 03/30/25 1144 Timmy Jordan DO IMG CT PROCEDURES Final R esult documented in this encounter Visit Diagnoses Not on filedocumented in this encounter Care Teams Oven Loader Relationship Specialty Start Date End Date Melissa Worthy MD [address] [place] [phone] PCP - General Family Medicine 12/14/24 documented as of this encounter
--- OUTSIDE RECORDS SUMMARY | 2025-04-23 07:26 | XMS_ITS | Clinical Summary ---
Author Organization [facility] Healthcare Address [address] [place] [address] Care Team Providers Care Jewel Bearing Grinder Name Role Phone Melissa Worthy MD Primary Care Provider [phone] Allergies Active Allergy Reactions Criticality Noted Date [...] 03/30/2025 11:44 AM Dictation Location: [place] [address] Transcribed By: [facility] 03/30/25 1144 Dictated By: Andres Wallis Jr, DO 03/30/25 1134 Signed By: <Electronically signed by Andres Wallis Jr, DO in OV> 03/30/25 1144 Narrative 03/30/2025 11:46 AM EDT [facility] Main [place] [address] [place] [address] Nuclear Medicine Report Signed Patient: Marysol Jacobson MR#: [id number] [birth year] : 1965 Acct:[id number] Age/Sex: 59 / F ADM Date: 03/30/25 Loc: Room: Type: [facility] R[facility] Attending Dr: Carlyn Turner APRN Copies [...] Procedure Note Andres Wallis Jr., - 03/30/2025 [facility] [place] [address] Nuclear Medicine Report Signed Patient: Marysol JacobsonMR#: [id number] 22 : 1965Acct:[id number] Age/Sex: 59 / FADM Date: 03/30/25 Loc: Room:Type: [facility] Attending Dr: Carlyn Turner TELEGRAPH EDITOR Copies to: Andres Wallis Jr, DO Mary [...] 03/30/2025 11:44 AM Dictation Location: [place] [address] Transcribed By: [facility] 03/30/25 1144 Dictated By: Andres Wallis Jr, DO 03/30/25 1134 Signed By: <Electronically signed by Andres Wallis Jr, DO inOV> 03/30/25 1144 Timmy Jordan DO IMG CT PROCEDURES Final R esult * GLUCOSE POCT GLUCOMETERS (03/30/2025 8:38 AM EDT) [facility] Signature GLUCOSE POC GLUCOMETERS 100 mg/dL 03/30/2025 9:07 AM EDT [facility] Comment: Random Glucose Reference Range is dependent on time and content of last meal. Glucose of more than 200 mg/dL in a nonstressed, ambulatory subject supports the diagnosis of Diabetes Mellitus. Blood (Blood) 03/30/2025 8:3 8 AM EDT 03/30/2025 9:07 AM EDT us Carlyn Turner ASSURANCE SENIOR MANAGER INSURANCE LAB BLOOD ORDERABLES Final Re sult [facility] [address] [place] [address], from Last 3 Months Insurance [facility] Care Teams Jewel Bearing Grinder Relationship Specialty Start Date End Date Melissa Worthy MD [address] [place] [id number] PCP - General Family Medicine 12/14/24
--- OUTSIDE RECORDS SUMMARY | 2025-04-23 07:26 | XMS_ITS | Encounter Summary ---
Author Organization [employer] Address [id number] [address] [place] [address] Care Team Providers Care Receptionist Doctor'S Office Name Role Phone Melissa Worthy MD Primary Care Provider [phone] Encounter Details Date Type Department Care Team (Late st Contact Info) Description 04/11/2025 Telephone [facility] General Surgery [address] [place] [address] Yoselin Lo RMA Social History [...] 04/12/25. She would like it done at [facility] because that's where she works and it [...] Dr. Jade does not go to [facility] any longer. Patient stated she will look for another alternative. Patients states [facility] is at her tier 3 - her out of pocket expense would be quite large. DANIELLE Bennett / oral and maxillofacial surgery resident RE: [facility] Received: Today DO Yoselin Chang RMA I am not going to [employer] any longer. If she wants it done it will have to be done at [facility] by me unless she wants to go elsewhere. Sorry tell her. Dr. Martino Previous Messages ----- Message ----- From: DANIELLE Bennett Sent: 04/11/2025 10:29 AM EDT To: Asher Jade DO; D[place] Dunn Subject: [facility] Shasta called into the office today to say that she needs a port put in She is having a lung biopsy done today - 04/11/25. She works at the [facility] and with her insurance - it would be better to have it done at [facility] I know we haven't done [facility] in a while. Would this be something you would consider? I could call [facility] and ask if they could open up a block for you I would schedule an office visit for her H & P Please advise - Elena palencia documented in this encounter Plan of Treatment Not on file documented as of this encounter Visit Diagnoses Not on filedocumented in this encounter Care Teams Receptionist Doctor'S Office Relationship Specialty Start Date End Date Melissa Worthy MD [address] [place] [id number] PCP - General Family Medicine 03/19/23 documented as of this encounter
--- OUTSIDE RECORDS SUMMARY | 2025-04-23 07:26 | XMS_ITS | Encounter Summary ---
Author Organization [employer] Address [id number] [address] [place] [address] Care Team Providers Care Steam Cleaner Name Role Phone Melissa Worthy MD Primary Care Provider [phone] Encounter Details Date Type Department Care Team (Late st Contact Info) Description 04/23/2023 Telephone [facility] General Surgery [address] [place] [phone] Yoselin Lo RMA Social History Tobacco Use [...] to update her H&P prior to her [facility] surgery with Dr. Jade 05/07/23. * Telephone [...] on filedocumented in this encounter Care Teams Steam Cleaner Relationship Specialty Start Date End Date Melissa Worthy MD [address] [place] [address] PCP - General Family Medicine 03/19/23 documented as of this encounter
--- OUTSIDE RECORDS SUMMARY | 2025-04-23 07:27 | XMS_ITS | CCD ---
Author Organization [facility] Care Team Providers Care Ip Litigation Paralegal Name Role Phone DO Isaías Jordan II Attending Provider [phone] DO Clint Jean Baptiste Referring Provider MD Sandro Chin Primary Care Provider DO Isaías Jordan II Attending Provider [phone] NON STAFF Primary Care Provider DO Clint [...] DR SANDRO Ernst Primary Care Unavailable ADAMOWICZ, ISAÍSA J Consulting Unavailable CHIN, DR SANDRO Ernst [...] ., DR CLINT Ernst Attending Unavaila ble HCIN, DR SANDRO Ernst Primary Care Unavailable GRILLIS ., DR CLINT Ernst Consulting Unavaila ble KODI, CADNELARIO Consulting Unavailable GRILLIS ., DR CLINT Ernst [...] Provider MD Sandro Chin Primary Care Provider [phone] OLIVIA Turner Attending Provider DO Clint Jean Baptiste Referring Provider MD Sandro Chin Primary Care Provider [phone] OLIVIA Turner Attending Provider CLINT JEAN BAPTISTE Attending Unavailable SANDRO CHIN Referring Unavailable GIUSEPPE, SANDRO E Primary Care Unavailable CLINT JEAN BAPTISTE Attending Unavailable GIUSEPPE, SANDRO E Referring Unavailable CHIN, SANDRO E Primary Care Unavailable MASHA RICHARDSON Attending Unavailable GIUSEPPE, SANDRO E Referring Unavailable CHIN, SANDRO E Primary Care Unavailable Sandro Chin MD Primary Care Provider Clint Jean Baptiste DO Referring Provider Sandro Chin MD Primary Care Provider Carlyn Turner APRN Attending Provider Sandro Chin MD Primary Care Provider CONSTANTINO MARTINEZ Attending Unavailable Sandro Chin MD Primary Care Provider Sandro Chin MD Attending Provider [phone] Roz Borrego DO Attending Provider Roz Borrego DO Other Provider Sandro Chin MD Primary Care Provider Sandro Chin MD Attending Provider Isaías Jordan DO Attending Provider Clint Jean Baptiste DO Referring Provider Carlyn Turner APRN Attending Provider Sandro Chin MD Primary Care Provider Clint LEAVITT Attending Unavailable ENDER MOORE Referring Unavailable CHIN, SANDRO Primary Care Unavailable ANTONIO MI Referring Unavailable CHIN, SANDRO Primary Care Unavailable SANDRO CHIN Primary Care Physician Roz Borrego Attending Unavailable Roz Borrego Admitting Unavailable Chin, Sandro E Primary Care Unavailable Chin, Sandro E Admitting Unavailable Sandro Chin Attending Unavailable Chin, Sandro E Primary Care Unavailable Giuseppe, Sandro E Primary Care Unavailable Clint Jean Baptiste Referring Unavailable Isaías Jordan II Attending Unavaila ble Isaías Jordan II Admitting Unavaila ble Allergies Allergy Classification Reported Allergen(s) Allergy Type Date of Onset Reaction(s) Facility (19 sources) HYDROcodone; Translations: [Hydrocodone] Drug Allergy 2 Nausea And Vomiting, Nausea (finding) [facility] (1 source) Misc-Food; Translations: [Misc-Food] Food allergy (disorder) [facility] Rep[facility] (10 sources) Codeine; Translations: [CODEINE] [...] capsule capsule Take by mouth 01/19/2024 Active Fosters 3-Xas-Ueg-Fish Oil (7 sources) Start: 01-19-2024 take 300-1000 mg by mouth once daily Start: 01-19-2024 take 300-1000 mg by mouth once daily Fosters 8-Cfi-Eos-Fish Oil (Fish Oil) 300-1,000 mg capsule Active 1 CAP PO Daily January 19, 2024 12:00am Complies with drug therapy Start: 01-19-2024 take 300-1000 mg by mouth once daily Fosters 4-Ixi-Mod-Fish Oil (Fish Oil) 300-1,000 mg capsule Active 1 CAP PO Daily January 18, 2024 11:00pm Start: 01-19-2024 take 300-1000 mg by mouth once daily Fosters 4-Fxg-Loy-Fish Oil (Fish Oil) 300-1,000 mg capsule Active [...] ORAL) Take by mouth daily. Active omega 9-kuu-xkx-fish oil (Fi sh OiL) 300-1,000 mg capsule [...] 11:38am Start: 08-19-2022 take 1 tablet by [facility] once daily Carica Papaya (Papaya Enzyme) [...] 01, 2024 12:06pm administer with a meal Viypk-Yz-3-Dha-Ep t-Ecvryfs-Upq (11 sources) Start: 05-02-2022 End: 05-03-2022 take 3 capsules by mouth once daily Wyuub-Wo-2-Dha-Ep e-Lcoqpas-Jgj Discontinued 1 CAP PO Daily May 02, 2022 12:00am May 03, 2022 2:39pm Start: 05-02-2022 End: 05-03-2022 take 3 capsules by mouth once daily Zqozu-Kz-9-Xpy-Pxj-Sbiuxmx-Ast Discontin ued 1 CAP PO Daily May 01, 2022 11:00pm May 03, 2022 1:39pm Grwoi-Un-2-Lez-Nbn-Gucmwiy-A st 1,028-905-49-80 mg Capsule (6 sources) Start: 05-02-2022 End: 05-03-2022 Abfit-Ms-8-Npw-Pof-Kgevnqh-A st 1,479-091-83-80 mg Capsule Discontinued 1 CAP PO Daily May 02, 2022 12:00am May 03, 2022 2:39pm Start: 05-02-2022 End: 05-03-2022 Tnumn-Qk-6-Fpy-Vzw-Gecnsit-A st 1,093-996-17-80 mg Capsule Discontinued 1 CAP PO Daily [...] 24 tablet 03/19/2023 03/02/2024 Discontinued Vit C-E-Zinc Mk-Qvox-Tal-Zeax (Icaps Areds2) 250 mg-200 unit -12.5 mg-1 mg Capsule (10 sources) Start: 06-25-2023 End: 11-17-2023 take 2 capsules by mouth once daily Vit C-E-Zinc Rz-Xgad-Wsa-Zeax (Icaps Areds2) 250 mg-200 unit -12.5 mg-1 mg Capsule Discontinued 2 CAP PO Daily June 25, 2023 12:00am November 17, 2023 8:48am Start: 06-25-2023 End: 11-17-2023 take 2 capsules by mouth once daily Vit C-E-Zinc Qd-Amgk-Xty-Zeax (Icaps Areds2) 250 mg-200 unit -12.5 mg-1 mg Capsule Discontinued 2 CAP PO Daily June 25, 2023 1:00am November 17, 2023 9:48am Start: 06-25-2023 take 2 capsules by m outh once daily Vit C-E-Zinc Vs-Afxu-Amo-Zeax (Icaps Areds2) 250 mg-200 unit -12.5 mg-1 mg Capsule Active 2 CAP PO Daily June 25, 2023 1:00am Start: 06-25-2023 take 2 capsules by m outh once daily Vit C-E-Zinc Sa-Tsfu-Hdp-Zeax (Icaps Areds2) 250 mg-200 unit -12.5 mg-1 [...] 01-09-2022 Episodic Other aftercare (1 source) Other chcf (current) drug therapy; Translations: [OTH CORRECTION CURRENT DRUG THERAPY] Onset: 04-22-2022 Episodic Other [...] signed up for this yet, please contact [employer] at [phone] to get signed up today. Language Information Language assistance services are available as needed. Normal [facility] CT NEEDLE BIOPSY LUNG PERCUT ANEOUS W [...] Ender Moore MD 04/12/25 Final result Normal [facility] Surgical Specimenon 04-11-20 Surgical Specimen [facility] [address] [place] [address] FINAL SURGICAL PATHOLOGY REPORT Patient Name: MARYSOL GARDNER Accession No: [id number] Age Sex: 1965 Location: DIS Account No: [id number] Collected: 04/11/2025 [facility] Rec No: [id number] Received: 04/12/2025 Attend Phys: ENDER MOORE Completed: [...] where the core is present. PSW/NAN CPT: 72475 X1 89901 X2 84092 X1 J MIC DONNELLY M.D. 04/14/2025 Electronically signed out by Page 1 of 1 Abnormal [facility] Comment on above: Performed By: #### S UR #### [facility] [address] [place] [address] XR CHEST (2 VW)on 04-11-2025 XR CHEST [...] Ender Moore MD 04/11/25 Final result Normal [facility] GLUCOSE POCT GLUCOMETERSon 0 03-30-2025 Glucose [Mass/Vol] 100 mg/dL [facility] Comment on above: Random Glucose Refer ence Range is dependent on time and content of last meal. Glucose of more than 200 mg/dL in a nonstressed, ambulatory subject supports the diagnosis of Diabetes Mellitus. [facility] Glucose Poct Glucometerson 0 03-30-2025 Glucose [Mass/Vol] 100 mg/dL Normal [facility] Comment on above: Result Comment: [place] Glucose Reference Range is dependent on time and content of last meal. Glucose of more than 200 mg/dL in a nonstressed, ambulatory subject supports the diagnosis of Diabetes Mellitus. PERFORMED BY: [place] [address] PATHOLOGIST LAND MANAGEMENT SUPERVISOR CECY RODRIGUEZ M.D. Performed By: #### G LULS #### Point of Care testing , PET tumor init tx strat sb-m ton 03-30-2025 PET tumor init tx strat sb-mt [facility] [address] [place] [id number] Nuclear Medicine Report Signed Patient: Marysol Gardner MR#: [id number] 22 : 1965 Acct:[id number] Age/Sex: 59 / F ADM Date: 03/30/25 Loc: Room: Type: [facility] RCR Attending Dr: Carlyn Turner LABORATORY SPECIALIST Copies to: Andres Wallis Jr, DO Mary [...] Jr., D.O. 03/30/2025 11:44 AM Dictation Location: [place] [address] Transcribed By: [facility] 03/30/25 1144 Dictated By: Andres Wallis Jr, DO 03/30/25 1134 Signed By: 03/30/25 1144 Normal [facility] Basophils Auto (Bld) [#/Vol] Ordered By: Isaías Jordan on 03-17-2025 Basophils (Bld) [#/Vol] 0.0 10 3/uL 0.0-0.1 [facility] Basophils/100 WBC Auto (Bld) Ordered By: Isaías Jordan on 03-17-2025 Basophils/100 WBC (Bld) 0.6 % 0.2-2.0 [facility] Eosinophils/100 WBC Auto (Bl d)Ordered By: Isaías Jordan on 03-17-2025 Eosinophils/100 WBC (Bld) 2.1 % 0.9-7.0 [facility] Erythrocyte distribution wid th Auto (RBC) [Ratio]Ordered By: Isaías Jordan on 03-17-2025 Erythrocyte distribution width (RBC) [Ratio] 13.2 % 11.0-15.0 [facility] Globulin Calc (S) [Mass/Vol] Ordered By: Isaías Jordan on 03-17-2025 Globulin (S) [Mass/Vol] 3.7 g/dL [facility] Glomerular filtration rate ( GFR) estimation in non- AmericanOrdered By: Isaías Jordan on 03-17-2025 GFR/1.73 sq M.predicted among non-blacks MDRD (S/P/Bld) [Vol rate/Area] mL/min/{1.73_m2} >=60 mL/min/1.7 3m 2 [facility] Hematocrit Auto (Bld) [Volum e fraction]Ordered By: Isaías Jordan on 03-17-2025 Hematocrit (Bld) [Volume fraction] 41.6 % 36.0-48.0 [facility] Hemoglobin [Mass/volume] in BloodOrdered By: Isaías Jordan on 03-17-2025 Hemoglobin (Bld) [Mass/Vol] 13.9 g/dL 12.0-16.0 [facility] Laboratory - Chemistry and C hemistry - challengeOrdered By: Isaías Jordan on 03-17-2025 Albumin [Mass/Vol] 3.8 g/dL 3.4-5.0 [facility] ALP [Catalytic activity/Vol] 81 U/L 46-116 [facility] ALT [Catalytic activity/Vol] 24 U/L 14-59 [facility] AST [Catalytic activity/Vol] 22 U/L 15-37 [facility] Bilirubin [Mass/Vol] 0.5 mg/dL 0.2-1.0 [facility] Calcium [Mass/Vol] 9.1 mg/dL 8.5-10.1 [facility] Chloride [Moles/Vol] 105 mmol/L 98-107 [facility] CO2 [Moles/Vol] 27.3 mmol/L 21.0-32.0 [facility] Creatinine [Mass/Vol] 0.57 mg/dL 0.55-1.02 [facility] GFR/1.73 sq M.predicted MDRD (S/P/Bld) [Vol rate/Area] mL/min/{1.73_m2} >=60 mL/min/1.7 3m 2 [facility] Glucose [Mass/Vol] 100 mg/dL 74-106 [facility] Potassium [Moles/Vol] 3.9 mmol/L 3.5-5.1 [facility] Protein [Mass/Vol] 7.5 g/dL 6.4-8.2 [facility] Sodium [Moles/Vol] 140 mmol/L 136-145 [facility] Urea nitrogen [Mass/Vol] 13.0 mg/dL 7.0-18.0 [facility] Urea nitrogen/Creatinine [Mass ratio] 22.8 mg/mg [facility] Laboratory - Hematology and Cell countsOrdered By: Isaías Jordan on 03-17-2025 Immature granulocytes/100 WBC (Bld) 0.2 % 0.0-0.5 [facility] Leukocytes [#/volume] correc audrey for nucleated erythrocytes in Blood by Automated counOrdered By: Isaías Jordan on 03-17-2025 WBC corrected for nucl RBC Auto (Bld) [#/Vol] 4.9 10 3/uL 4.0-11.0 [facility] Lymphocytes Auto (Bld) [#/Vo l]Ordered By: Isaías Jordan on 03-17-2025 Lymphocytes (Bld) [#/Vol] 1.5 10 3/uL 1.2-3.8 [facility] Lymphocytes/100 WBC Auto (Bl d)Ordered By: Isaías Jordan on 03-17-2025 Lymphocytes/100 WBC (Bld) 31.1 % 20.5-60.0 [facility] MCH Auto (RBC) [Entitic mass ]Ordered By: Isaías Jordan on 03-17-2025 MCH (RBC) [Entitic mass] 31.9 pg 26.7-34.0 [facility] MCHC Auto (RBC) [Mass/Vol]Or dered By: Isaías Jordan on 03-17-2025 MCHC (RBC) [Mass/Vol] 33.4 g/dL 29.9-35.2 [facility] MCV Auto (RBC) [Entitic vol] Ordered By: Isaías Jordan on 03-17-2025 MCV (RBC) [Entitic vol] 95.4 fL 81.0-99.0 [facility] Monocytes Auto (Bld) [#/Vol] Ordered By: Isaías Jordan on 03-17-2025 Monocytes (Bld) [#/Vol] 0.5 10 3/uL 0.3-0.8 [facility] Monocytes/100 WBC Auto (Bld) Ordered By: Isaías Jordan on 03-17-2025 Monocytes/100 WBC (Bld) 9.9 % 1.7-12.0 [facility] Neutrophils Auto (Bld) [#/Vo l]Ordered By: Isaías Jordan on 03-17-2025 Neutrophils (Bld) [#/Vol] 2.7 10 3/uL 1.4-6.5 [facility] Neutrophils/100 WBC Auto (Bl d)Ordered By: Isaías Jordan on 03-17-2025 Neutrophils/100 WBC (Bld) 56.1 % 43.0-75.0 [facility] No Panel InformationOrdered By: Isaías Jordan on 03-17-2025 Eosinophils # (Auto) 0.1 10 3/uL 0.0-0.7 [facility] Immature Granulocyte # (Auto) 0.01 10 3/uL 0.00-0.03 [facility] Platelet mean volume Auto (B ld) [Entitic vol]Ordered By: Isaías Jordan on 03-17-2025 Platelet mean volume (Bld) [Entitic vol] 10.4 fL 9.5-13.5 [facility] Platelets Auto (Bld) [#/Vol] Ordered By: Isaías Jordan on 03-17-2025 Platelets (Bld) [#/Vol] 206 10 3/uL 150-450 [facility] RBC Auto (Bld) [#/Vol]Ordere d By: Isaías Jordan on 03-17-2025 RBC (Bld) [#/Vol] 4.36 10 6/uL 4.20-5.40 [facility] Serum or plasma albumin/glob ulin mass ratioOrdered By: Isaías Jordan on 03-17-2025 Albumin/Globulin [Mass ratio] 1.0 {ratio} [facility] Serum or plasma anion gap de terminationOrdered By: Isaías Jordan on 03-17-2025 Anion gap [Moles/Vol] 11.6 mmol/L [facility] Pathology Request for Lab Co rpon 02-01-2025 Pathology Request for Lab Luzma Normal [facility] Comment on above: Order Comment: GI SP ECIMEN Result Comment: See report. Scanned copy available in EMR. PERFORMED BY: [place] [address] PATHOLOGIST LAND MANAGEMENT SUPERVISOR CECY RODRIGUEZ M.D. Performed By: #### P ATH TO [facility] #### [address] Basophils Auto (Bld) [#/Vol] Ordered By: Sandro Chin on 12-25-2024 Basophils (Bld) [#/Vol] 0.0 10 3/uL 0.0-0.1 [facility] Basophils/100 WBC Auto (Bld) Ordered By: Sandro Chin on 12-25-2024 Basophils/100 WBC (Bld) 0.8 % 0.2-2.0 [facility] Cholesterol in LDL Calc [Mas s/Vol]Ordered By: Sandro Chin on 12-25-2024 Cholesterol in LDL [Mass/Vol] 157.0 mg/dL [facility] Comment on above: <100 mg/dl [id number] 0-129 mg/dl NEAR OR ABOVE [id number] mg/dl BORDERLINE [id number] mg/dl HIGH>190 mg/dl VERY HIGH Cholesterol in VLDL Calc [Ma ss/Vol]Ordered By: Sandro Chin on 12-25-2024 Cholesterol in VLDL [Mass/Vol] 14.0 mg/dL [facility] Eosinophils/100 WBC Auto (Bl d)Ordered By: Sandro Chin on 12-25-2024 Eosinophils/100 WBC (Bld) 1.5 % 0.9-7.0 [facility] Erythrocyte distribution wid th Auto (RBC) [Ratio]Ordered By: Sandro Chin on 12-25-2024 Erythrocyte distribution width (RBC) [Ratio] 13.4 % 11.0-15.0 [facility] Estimated glomerular filtrat ion rate (GFR) non- AmericanOrdered By: Sandro Chin on 12-25-2024 GFR/1.73 sq M.predicted among non-blacks MDRD (S/P/Bld) [Vol rate/Area] mL/min/{1.73_m2} >=60 mL/min/1.7 3m 2 [facility] Globulin Calc (S) [Mass/Vol] Ordered By: Sandro Chin on 12-25-2024 Globulin (S) [Mass/Vol] 3.5 g/dL [facility] Glucose mean value [Mass/vol ume] in Blood Estimated from glycated hemoglobinOrdered By: Sandro Chin on 12-25-2024 Average glucose Estimated from glycated hemoglobin (Bld) [Mass/Vol] 111 mg/dL [facility] Hematocrit Auto (Bld) [Volum e fraction]Ordered By: Sandro Chin on 12-25-2024 Hematocrit (Bld) [Volume fraction] 41.8 % 36.0-48.0 [facility] Hemoglobin A1c percentageOrd ered By: Sandro Chin on 12-25-2024 HbA1c (Bld) [Mass fraction] 5.5 % 4.5-6.2 [facility] Comment on above: ADA RECOMMENDED LIMI T 4.0 - 6.0ADA THERAPEUTIC TARGET < 7.0ACTION SUGGESTED> 7.0 Hemoglobin [Mass/volume] in BloodOrdered By: Sandro Chin on 12-25-2024 Hemoglobin (Bld) [Mass/Vol] 13.9 g/dL 12.0-16.0 [facility] Laboratory - Chemistry and C hemistry - challengeOrdered By: Sandro Chin on 12-25-2024 Albumin [Mass/Vol] 4.0 g/dL 3.4-5.0 [facility] ALP [Catalytic activity/Vol] 76 U/L 46-116 [facility] ALT [Catalytic activity/Vol] 24 U/L 14-59 [facility] AST [Catalytic activity/Vol] 14 U/L Low 15-37 [facility] Bilirubin [Mass/Vol] 0.6 mg/dL 0.2-1.0 [facility] Calcium [Mass/Vol] 9.6 mg/dL 8.5-10.1 [facility] Chloride [Moles/Vol] 106 mmol/L 98-107 [facility] Cholesterol [Mass/Vol] 219 mg/dL High <=200 [facility] Cholesterol in HDL [Mass/Vol] 48 mg/dL 40-60 [facility] Comment on above: > or =60 mg/dl - LOW CARDIOVASCULAR RISK<40 mg/dl - HIGH CARDIOVASCULAR RISK CO2 [Moles/Vol] 28.6 mmol/L 21.0-32.0 [facility] Creatinine [Mass/Vol] 0.67 mg/dL 0.55-1.02 [facility] GFR/1.73 sq M.predicted MDRD (S/P/Bld) [Vol rate/Area] mL/min/{1.73_m2} >=60 mL/min/1.7 3m 2 [facility] Glucose [Mass/Vol] 88 mg/dL 74-106 [facility] Potassium [Moles/Vol] 3.9 mmol/L 3.5-5.1 [facility] Protein [Mass/Vol] 7.5 g/dL 6.4-8.2 [facility] Sodium [Moles/Vol] 144 mmol/L 136-145 [facility] Triglyceride [Mass/Vol] 70 mg/dL <=150 [facility] Urea nitrogen [Mass/Vol] 19.0 mg/dL High 7.0-18.0 [facility] Urea nitrogen/Creatinine [Mass ratio] 28.4 mg/mg [facility] Laboratory - Hematology and Cell countsOrdered By: Sandro Chin on 12-25-2024 Immature granulocytes/100 WBC (Bld) 0.2 % 0.0-0.5 [facility] Leukocytes [#/volume] correc audrey for nucleated erythrocytes in Blood by Automated counOrdered By: Sandro Chin on 12-25-2024 WBC corrected for nucl RBC Auto (Bld) [#/Vol] 4.8 10 3/uL 4.0-11.0 [facility] Lymphocytes Auto (Bld) [#/Vo l]Ordered By: Sandro Chin on 12-25-2024 Lymphocytes (Bld) [#/Vol] 1.7 10 3/uL 1.2-3.8 [facility] Lymphocytes/100 WBC Auto (Bl d)Ordered By: Sandro Chin on 12-25-2024 Lymphocytes/100 WBC (Bld) 36.1 % 20.5-60.0 [facility] MCH Auto (RBC) [Entitic mass ]Ordered By: Sandro Chin on 12-25-2024 MCH (RBC) [Entitic mass] 31.8 pg 26.7-34.0 [facility] MCHC Auto (RBC) [Mass/Vol]Or dered By: Sandro Chin on 12-25-2024 MCHC (RBC) [Mass/Vol] 33.3 g/dL 29.9-35.2 [facility] MCV Auto (RBC) [Entitic vol] Ordered By: Sandro Chin on 12-25-2024 MCV (RBC) [Entitic vol] 95.7 fL 81.0-99.0 [facility] Monocytes Auto (Bld) [#/Vol] Ordered By: Sandro Chin on 12-25-2024 Monocytes (Bld) [#/Vol] 0.3 10 3/uL 0.3-0.8 [facility] Monocytes/100 WBC Auto (Bld) Ordered By: Sandro Chin on 12-25-2024 Monocytes/100 WBC (Bld) 6.8 % 1.7-12.0 [facility] Neutrophils Auto (Bld) [#/Vo l]Ordered By: Sandro Chin on 12-25-2024 Neutrophils (Bld) [#/Vol] 2.6 10 3/uL 1.4-6.5 [facility] Neutrophils/100 WBC Auto (Bl d)Ordered By: Sandro Chin on 12-25-2024 Neutrophils/100 WBC (Bld) 54.6 % 43.0-75.0 [facility] No Panel InformationOrdered By: Sandro Chin on 12-25-2024 Eosinophils # (Auto) 0.1 10 3/uL 0.0-0.7 [facility] Immature Granulocyte # (Auto) 0.01 10 3/uL 0.00-0.03 [facility] Platelet mean volume Auto (B ld) [Entitic vol]Ordered By: Sandro Chin on 12-25-2024 Platelet mean volume (Bld) [Entitic vol] 10.9 fL 9.5-13.5 [facility] Platelets Auto (Bld) [#/Vol] Ordered By: Sandro Chin on 12-25-2024 Platelets (Bld) [#/Vol] 210 10 3/uL 150-450 [facility] RBC Auto (Bld) [#/Vol]Ordere d By: Sandro Chin on 12-25-2024 RBC (Bld) [#/Vol] 4.37 10 6/uL 4.20-5.40 [facility] Serum or plasma albumin/glob ulin mass ratioOrdered By: Sandro Chin on 12-25-2024 Albumin/Globulin [Mass ratio] 1.1 {ratio} [facility] Serum or plasma anion gap de terminationOrdered By: Sandro Chin on 12-25-2024 Anion gap [Moles/Vol] 13.3 mmol/L [facility] Serum or plasma total choles terol/high density lipoprotein (HDL) cholesterol mass ratOrdered By: Sandro Chin on 12-25-2024 Cholesterol.total/Chol esterol in HDL [Mass ratio] 4.6 {ratio} [facility] Comment on above: 3.3 - 4.4 LOW RISK4. 4 - 7.1 AVERAGE RISK7.1 - 11.0 MODERATE RISK>11.0 HIGH RISK Chlamydia trachomatis rRNA [ Presence] in Cervix by MARIVEL with probe detectionOrdered By: Sandro Chin on 12-20-2024 C. trachomatis rRNA MARIVEL+probe Ql (Cvx) Negative Negative [facility] Neisseria gonorrhoeae rRNA [ Presence] in Cervix by MARIVEL with probe detectionOrdered By: Sandro Chin on 12-20-2024 N. gonorrhoeae rRNA MARIVEL+probe Ql (Cvx) Negative Negative [facility] Comment on above: Performed at: [facility] - [facility] [address] [id number] Director: Che Swenson MD, Phone: [phone] at: =G - [facility] [address] [id number] Director: Che Swenson MD, Phone: [phone] No Panel InformationOrdered By: Sandro Chin on 12-20-2024 IG Pap w/Ct-Ng & HPV (Off-Site) Note . [facility] Comment on above: TESTS RESULT FLAG UN ITS REF RANGE LAB Clinician Provided Cytology Information No. of containers..01 ThinPrep VialDIAGNOSIS: 01 NEGATIVE FOR INTRAEPITHELIAL LESION OR MALIGNANCY. CELLULAR CHANGES ASSOCIATED WITH ATROPHY AND INFLAMMATION ARE PRESENT.Specimen adequacy: 01 Satisfactory for evaluation. Endocervical component may not be distinguished in cases of atrophy.Performed by: 01 Nella Hines Egg Caser (ASCP). 01Note: Note 01 The Pap smear is a screening test designed to aid in the detection of premalignant and malignant conditions of the uterine cervix. It is not a diagnostic procedure and should not be used as the sole means of detecting cervical cancer. Both false-positive and false-negative reports do occur.Test Methodology: Note 01 The M[employer] Box Builder was unable to read this specimen. Therefore a manual review was performed.. 01 The HPV DNA reflex criteria were not met with this specimen result therefore, no HPV testing was performed. ------- FLAG LEGEND: L-Low Normal,H-High Normal,LL-Alert Low,HH-Alert High <-Panic Low,>-Panic High,A-Abnormal,AA-Critical Abnormal -----Performed at:[address] [id number] Che Swenson MD, Pap IG, CtNg, rfx HPV Aptima on 12-20-2024 PAP Chlamydia MARIVEL Negative Normal Negative [facility] Comment on above: Performed By: #### P AP #### [facility] , PAP Gonococcus Negative Normal Negative [facility] Comment on above: Result Comment: Perf ormed at: WB - [facility] [address] [id number] Search Engine Optimization Strategist: Che Swenson MD, Phone: [phone] Performed at: =G - [facility] [address] [id number] Search Engine Optimization Strategist: Che Swenson MD, Phone: [phone] PERFORMED BY: [address] [place] [address] PATHOLOGIST LAND MANAGEMENT SUPERVISOR CECY RODRIGUEZ M.D. Performed By: #### P AP #### [facility] , Pap IG Note Normal . [facility] Comment on above: Result Comment: TEST S RESULT FLAG UNITS REF RANGE LAB Clinician Provided Cytology Information No. of containers..01 ThinPrep Vial DIAGNOSIS: 01 NEGATIVE FOR INTRAEPITHELIAL LESION OR MALIGNANCY. CELLULAR CHANGES ASSOCIATED WITH ATROPHY AND INFLAMMATION ARE PRESENT. Specimen adequacy: 01 Satisfactory for evaluation. Endocervical component may not be distinguished in cases of atrophy. Performed by: 01 Nella Hines, Egg Caser ([facility]) . 01 Note: Note 01 The Pap smear is a screening test designed to aid in the detection of premalignant and malignant conditions of the uterine cervix. It is not a diagnostic procedure and should not be used as the sole means of detecting cervical cancer. Both false-positive and false-negative reports do occur. Test Methodology: Note 01 The Mosaic[employer]R) Box Builder was unable to read this specimen. Therefore a manual review was performed. . 01 The HPV DNA reflex criteria were not met with this specimen result therefore, no HPV testing was performed. FLAG LEGEND: L-Low Normal,H-High Normal,LL-Alert Low,HH-Alert High <-Panic Low,>-Panic High,A-Abnormal,AA-Critical Abnormal Performed at: 01 WB [facility] [address] [place] [address] Che Swenson MD, Performed By: #### P AP [id number] #### [facility] , Basophils Auto (Bld) [#/Vol] on 08-24-2024 Basophils (Bld) [#/Vol] Automated basophil count 0.0-0.1 [facility] Basophils/100 WBC Auto (Bld) on 08-24-2024 Basophils/100 WBC (Bld) Automated basophil % 0.2-2.0 [facility] Eosinophils/100 WBC Auto (Bl d)on 08-24-2024 Eosinophils/100 WBC (Bld) Automated eosinophil % 0.9-7.0 [facility] Erythrocyte distribution wid th Auto (RBC) [Ratio]on 08-24-2024 Erythrocyte distribution width (RBC) [Ratio] Erythrocyte distribution width [Ratio] by Automated count 11.0-15.0 [facility] Estimated glomerular filtrat ion rate (GFR) non- Americanon 08-24-2024 GFR/1.73 sq M.predicted among non-blacks MDRD (S/P/Bld) [Vol rate/Area] Estimated glomerular filtration rate (GFR) non- >=60 mL/min/1.7 3m 2 [facility] Globulin Calc (S) [Mass/Vol] on 08-24-2024 Globulin (S) [Mass/Vol] Serum globulin measurement by calculation (mass/volume) [facility] Hematocrit Auto (Bld) [Volum e fraction]on 08-24-2024 Hematocrit (Bld) [Volume fraction] Hematocrit [Volume Fraction] of Blood by Automated count 36.0-48.0 [facility] Hemoglobin [Mass/volume] in Bloodon 08-24-2024 Hemoglobin (Bld) [Mass/Vol] Hemoglobin [Mass/volume] in Blood 12.0-16.0 [facility] Laboratory - Chemistry and C hemistry - challengeon 08-24-2024 Albumin [Mass/Vol] 3.9 g/dL 3.4-5.0 [facility] ALP [Catalytic activity/Vol] 75 U/L 46-116 [facility] ALT [Catalytic activity/Vol] 20 U/L 14-59 [facility] AST [Catalytic activity/Vol] 20 U/L 15-37 [facility] Bilirubin [Mass/Vol] 0.6 mg/dL 0.2-1.0 [facility] Calcium [Mass/Vol] 9.3 mg/dL 8.5-10.1 [facility] Chloride [Moles/Vol] 103 mmol/L 98-107 [facility] CO2 [Moles/Vol] 27.7 mmol/L 21.0-32.0 [facility] Creatinine [Mass/Vol] 0.69 mg/dL 0.55-1.02 [facility] GFR/1.73 sq M.predicted MDRD (S/P/Bld) [Vol rate/Area] mL/min/{1.73_m2} >=60 mL/min/1.7 3m 2 [facility] Glucose [Mass/Vol] 106 mg/dL 74-106 [facility] Potassium [Moles/Vol] 4.2 mmol/L 3.5-5.1 [facility] Protein [Mass/Vol] 7.4 g/dL 6.4-8.2 [facility] Sodium [Moles/Vol] 135 mmol/L Low 136-145 [facility] Urea nitrogen [Mass/Vol] 11.0 mg/dL 7.0-18.0 [facility] Urea nitrogen/Creatinine [Mass ratio] 15.9 mg/mg [facility] Laboratory - Hematology and Cell countson 08-24-2024 Immature granulocytes/100 WBC (Bld) 0.2 % 0.0-0.5 [facility] Leukocytes [#/volume] correc audrey for nucleated erythrocytes in Blood by Automated counon 08-24-2024 WBC corrected for nucl RBC Auto (Bld) [#/Vol] Leukocytes [#/volume] corrected for nucleated erythrocytes in Blood by Automated coun 4.0-11.0 [facility] Lymphocytes Auto (Bld) [#/Vo l]on 08-24-2024 Lymphocytes (Bld) [#/Vol] Lymphocytes [#/volume] in Blood by Automated count 1.2-3.8 [facility] Lymphocytes/100 WBC Auto (Bl d)on 08-24-2024 Lymphocytes/100 WBC (Bld) Lymphocytes/100 leukocytes in Blood by Automated count 20.5-60.0 [facility] MCH Auto (RBC) [Entitic mass ]on 08-24-2024 MCH (RBC) [Entitic mass] MCH [Entitic mass] by Automated count 26.7-34.0 [facility] MCHC Auto (RBC) [Mass/Vol]on 08-24-2024 MCHC (RBC) [Mass/Vol] MCHC [Mass/volume] by Automated count 29.9-35.2 [facility] MCV Auto (RBC) [Entitic vol] on 08-24-2024 MCV (RBC) [Entitic vol] MCV [Entitic volume] by Automated count 81.0-99.0 [facility] Monocytes Auto (Bld) [#/Vol] on 08-24-2024 Monocytes (Bld) [#/Vol] Automated blood monocyte count 0.3-0.8 [facility] Monocytes/100 WBC Auto (Bld) on 08-24-2024 Monocytes/100 WBC (Bld) Automated monocyte % 1.7-12.0 [facility] Neutrophils Auto (Bld) [#/Vo l]on 08-24-2024 Neutrophils (Bld) [#/Vol] Neutrophils [#/volume] in Blood by Automated count 1.4-6.5 [facility] Neutrophils/100 WBC Auto (Bl d)on 08-24-2024 Neutrophils/100 WBC (Bld) Automated neutrophil % 43.0-75.0 [facility] No Panel Informationon 08-24 Eosinophils # (Auto) 0.1 10 3/uL 0.0-0.7 [facility] Immature Granulocyte # (Auto) 0.01 10 3/uL 0.00-0.03 [facility] Platelet mean volume Auto (B ld) [Entitic vol]on 08-24-2024 Platelet mean volume (Bld) [Entitic vol] Platelet mean volume [Entitic volume] in Blood by Automated count 9.5-13.5 [facility] Platelets Auto (Bld) [#/Vol] on 08-24-2024 Platelets (Bld) [#/Vol] Platelets [#/volume] in Blood by Automated count 150-450 [facility] RBC Auto (Bld) [#/Vol]on RBC (Bld) [#/Vol] Erythrocytes [#/volu me] in Blood by Automated count 4.20-5.40 [facility] Serum or plasma albumin/glob ulin mass ratioon 08-24-2024 Albumin/Globulin [Mass ratio] Serum or plasma albumin/globulin mass ratio [facility] Serum or plasma anion gap de terminationon 08-24-2024 Anion gap [Moles/Vol] Serum or plasma an ion gap determination [facility] Basophils Auto (Bld) [#/Vol] on 01-15-2024 Basophils (Bld) [#/Vol] 0.1 10 3/uL 0.0-0.1 [facility] Basophils/100 WBC Auto (Bld) on 01-15-2024 Basophils/100 WBC (Bld) 1.0 % 0.2-2.0 [facility] Eosinophils/100 WBC Auto (Bl d)on 01-15-2024 Eosinophils/100 WBC (Bld) 1.8 % 0.9-7.0 [facility] Erythrocyte distribution wid th Auto (RBC) [Ratio]on 01-15-2024 Erythrocyte distribution width (RBC) [Ratio] 13.1 % 11.0-15.0 [facility] Estimated glomerular filtrat ion rate (GFR) non- Americanon 01-15-2024 GFR/1.73 sq M.predicted among non-blacks MDRD (S/P/Bld) [Vol rate/Area] mL/min/{1.73_m2} >=60 [facility] Globulin Calc (S) [Mass/Vol] on 01-15-2024 Globulin (S) [Mass/Vol] 3.6 g/dL [facility] Hematocrit Auto (Bld) [Volum e fraction]on 01-15-2024 Hematocrit (Bld) [Volume fraction] 42.6 % 36.0-48.0 [facility] Hemoglobin [Mass/volume] in Bloodon 01-15-2024 Hemoglobin (Bld) [Mass/Vol] 13.7 g/dL 12.0-16.0 [facility] Laboratory - Chemistry and C hemistry - challengeon 01-15-2024 Albumin [Mass/Vol] 4.0 g/dL 3.4-5.0 [facility] ALP [Catalytic activity/Vol] 90 U/L 46-116 [facility] ALT [Catalytic activity/Vol] 22 U/L 14-59 [facility] AST [Catalytic activity/Vol] 21 U/L 15-37 [facility] Bilirubin [Mass/Vol] 0.6 mg/dL 0.2-1.0 [facility] Calcium [Mass/Vol] 9.6 mg/dL 8.5-10.1 [facility] Chloride [Moles/Vol] 102 mmol/L 98-107 [facility] CO2 [Moles/Vol] 26.2 mmol/L 21.0-32.0 [facility] Creatinine [Mass/Vol] 0.60 mg/dL 0.55-1.02 [facility] GFR/1.73 sq M.predicted MDRD (S/P/Bld) [Vol rate/Area] mL/min/{1.73_m2} >=60 [facility] Glucose [Mass/Vol] 107 mg/dL High 74-106 [facility] Potassium [Moles/Vol] 4.2 mmol/L 3.5-5.1 [facility] Protein [Mass/Vol] 7.6 g/dL 6.4-8.2 [facility] Sodium [Moles/Vol] 136 mmol/L 136-145 [facility] Urea nitrogen [Mass/Vol] 13.0 mg/dL 7.0-18.0 [facility] Urea nitrogen/Creatinine [Mass ratio] 21.7 mg/mg [facility] Laboratory - Hematology and Cell countson 01-15-2024 Immature granulocytes/100 WBC (Bld) 0.2 % 0.0-0.5 [facility] Leukocytes [#/volume] correc audrey for nucleated erythrocytes in Blood by Automated counon 01-15-2024 WBC corrected for nucl RBC Auto (Bld) [#/Vol] 5.0 10 3/uL 4.0-11.0 [facility] Lymphocytes Auto (Bld) [#/Vo l]on 01-15-2024 Lymphocytes (Bld) [#/Vol] 2.0 10 3/uL 1.2-3.8 [facility] Lymphocytes/100 WBC Auto (Bl d)on 01-15-2024 Lymphocytes/100 WBC (Bld) 39.4 % 20.5-60.0 [facility] MCH Auto (RBC) [Entitic mass ]on 01-15-2024 MCH (RBC) [Entitic mass] 32.2 pg 26.7-34.0 [facility] MCHC Auto (RBC) [Mass/Vol]on 01-15-2024 MCHC (RBC) [Mass/Vol] 32.2 g/dL 29.9-35.2 [facility] MCV Auto (RBC) [Entitic vol] on 01-15-2024 MCV (RBC) [Entitic vol] 100.0 fL High 81.0-99.0 [facility] Monocytes Auto (Bld) [#/Vol] on 01-15-2024 Monocytes (Bld) [#/Vol] 0.5 10 3/uL 0.3-0.8 [facility] Monocytes/100 WBC Auto (Bld) on 01-15-2024 Monocytes/100 WBC (Bld) 9.1 % 1.7-12.0 [facility] Neutrophils Auto (Bld) [#/Vo l]on 01-15-2024 Neutrophils (Bld) [#/Vol] 2.4 10 3/uL 1.4-6.5 [facility] Neutrophils/100 WBC Auto (Bl d)on 01-15-2024 Neutrophils/100 WBC (Bld) 48.5 % 43.0-75.0 [facility] No Panel Informationon 01-14 Eosinophils # (Auto) 0.1 10 3/uL 0.0-0.7 [facility] Immature Granulocyte # (Auto) 0.01 10 3/uL 0.00-0.03 [facility] Platelet mean volume Auto (B ld) [Entitic vol]on 01-15-2024 Platelet mean volume (Bld) [Entitic vol] 10.9 fL 9.5-13.5 [facility] Platelets Auto (Bld) [#/Vol] on 01-15-2024 Platelets (Bld) [#/Vol] 197 10 3/uL 150-450 [facility] RBC Auto (Bld) [#/Vol]on RBC (Bld) [#/Vol] 4.26 10 6/uL 4.20-5.40 [facility] Serum or plasma albumin/glob ulin mass ratioon 01-15-2024 Albumin/Globulin [Mass ratio] 1.1 {ratio} [facility] Serum or plasma anion gap de terminationon 01-15-2024 Anion gap [Moles/Vol] 12.0 mmol/L [facility] Basophils Auto (Bld) [#/Vol] on 11-26-2023 Basophils (Bld) [#/Vol] 0.0 10 3/uL 0.0-0.1 [facility] Basophils/100 WBC Auto (Bld) on 11-26-2023 Basophils/100 WBC (Bld) 0.9 % 0.2-2.0 [facility] Cholesterol in LDL Calc [Mas s/Vol]on 11-26-2023 Cholesterol in LDL [Mass/Vol] 179.0 mg/dL [facility] Comment on above: <100 mg/dl [id number] 0-129 mg/dl NEAR OR ABOVE [id number] mg/dl BORDERLINE [id number] mg/dl HIGH>190 mg/dl VERY HIGH Cholesterol in VLDL Calc [Ma ss/Vol]on 11-26-2023 Cholesterol in VLDL [Mass/Vol] 28.0 mg/dL [facility] Eosinophils/100 WBC Auto (Bl d)on 11-26-2023 Eosinophils/100 WBC (Bld) 2.4 % 0.9-7.0 [facility] Erythrocyte distribution wid th Auto (RBC) [Ratio]on 11-26-2023 Erythrocyte distribution width (RBC) [Ratio] 13.2 % 11.0-15.0 [facility] Estimated glomerular filtrat ion rate (GFR) non- Americanon 11-26-2023 GFR/1.73 sq M.predicted among non-blacks MDRD (S/P/Bld) [Vol rate/Area] mL/min/{1.73_m2} >=60 [facility] Globulin Calc (S) [Mass/Vol] on 11-26-2023 Globulin (S) [Mass/Vol] 3.5 g/dL [facility] Glucose mean value [Mass/vol ume] in Blood Estimated from glycated hemoglobinon 11-26-2023 Average glucose Estimated from glycated hemoglobin (Bld) [Mass/Vol] 94 mg/dL [facility] Hematocrit Auto (Bld) [Volum e fraction]on 11-26-2023 Hematocrit (Bld) [Volume fraction] 41.5 % 36.0-48.0 [facility] Hemoglobin [Mass/volume] in Bloodon 11-26-2023 Hemoglobin (Bld) [Mass/Vol] 13.4 g/dL 12.0-16.0 [facility] Laboratory - Chemistry and C hemistry - challengeon 11-26-2023 Albumin [Mass/Vol] 3.9 g/dL 3.4-5.0 [facility] ALP [Catalytic activity/Vol] 101 U/L 46-116 [facility] ALT [Catalytic activity/Vol] 29 U/L 14-59 [facility] AST [Catalytic activity/Vol] 19 U/L 15-37 [facility] Bilirubin [Mass/Vol] 0.5 mg/dL 0.2-1.0 [facility] Calcium [Mass/Vol] 9.5 mg/dL 8.5-10.1 [facility] Chloride [Moles/Vol] 105 mmol/L 98-107 [facility] Cholesterol [Mass/Vol] 250 mg/dL High <=200 [facility] Cholesterol in HDL [Mass/Vol] 43 mg/dL 40-60 [facility] Comment on above: > or =60 mg/dl - LOW CARDIOVASCULAR RISK<40 mg/dl - HIGH CARDIOVASCULAR RISK CO2 [Moles/Vol] 28.5 mmol/L 21.0-32.0 [facility] Creatinine [Mass/Vol] 0.57 mg/dL 0.55-1.02 [facility] GFR/1.73 sq M.predicted MDRD (S/P/Bld) [Vol rate/Area] mL/min/{1.73_m2} >=60 [facility] Glucose [Mass/Vol] 100 mg/dL 74-106 [facility] Potassium [Moles/Vol] 4.0 mmol/L 3.5-5.1 [facility] Protein [Mass/Vol] 7.4 g/dL 6.4-8.2 [facility] Sodium [Moles/Vol] 142 mmol/L 136-145 [facility] Triglyceride [Mass/Vol] 140 mg/dL <=150 [facility] TSH Qn 1.818 m[IU]/L 0.358-3.74 0 [facility] Urea nitrogen [Mass/Vol] 16.0 mg/dL 7.0-18.0 [facility] Urea nitrogen/Creatinine [Mass ratio] 28.1 mg/mg [facility] Laboratory - Hematology and Cell countson 11-26-2023 HbA1c (Bld) [Mass fraction] 4.9 % 4.5-6.2 [facility] Comment on above: ADA RECOMMENDED LIMI T 4.0 - 6.0ADA THERAPEUTIC TARGET < 7.0ACTION SUGGESTED> 7.0 Immature granulocytes/100 WBC (Bld) 0.2 % 0.0-0.5 [facility] Leukocytes [#/volume] correc audrey for nucleated erythrocytes in Blood by Automated counon 11-26-2023 WBC corrected for nucl RBC Auto (Bld) [#/Vol] 4.6 10 3/uL 4.0-11.0 [facility] Lymphocytes Auto (Bld) [#/Vo l]on 11-26-2023 Lymphocytes (Bld) [#/Vol] 2.1 10 3/uL 1.2-3.8 [facility] Lymphocytes/100 WBC Auto (Bl d)on 11-26-2023 Lymphocytes/100 WBC (Bld) 44.7 % 20.5-60.0 [facility] MCH Auto (RBC) [Entitic mass ]on 11-26-2023 MCH (RBC) [Entitic mass] 31.5 pg 26.7-34.0 [facility] MCHC Auto (RBC) [Mass/Vol]on 11-26-2023 MCHC (RBC) [Mass/Vol] 32.3 g/dL 29.9-35.2 [facility] MCV Auto (RBC) [Entitic vol] on 11-26-2023 MCV (RBC) [Entitic vol] 97.4 fL 81.0-99.0 [facility] Monocytes Auto (Bld) [#/Vol] on 11-26-2023 Monocytes (Bld) [#/Vol] 0.4 10 3/uL 0.3-0.8 [facility] Monocytes/100 WBC Auto (Bld) on 11-26-2023 Monocytes/100 WBC (Bld) 8.5 % 1.7-12.0 [facility] Neutrophils Auto (Bld) [#/Vo l]on 11-26-2023 Neutrophils (Bld) [#/Vol] 2.0 10 3/uL 1.4-6.5 [facility] Neutrophils/100 WBC Auto (Bl d)on 11-26-2023 Neutrophils/100 WBC (Bld) 43.3 % 43.0-75.0 [facility] No Panel Informationon 11-25 Eosinophils # (Auto) 0.1 10 3/uL 0.0-0.7 [facility] Immature Granulocyte # (Auto) 0.01 10 3/uL 0.00-0.03 [facility] Platelet mean volume Auto (B ld) [Entitic vol]on 11-26-2023 Platelet mean volume (Bld) [Entitic vol] 11.4 fL 9.5-13.5 [facility] Platelets Auto (Bld) [#/Vol] on 11-26-2023 Platelets (Bld) [#/Vol] 210 10 3/uL 150-450 [facility] RBC Auto (Bld) [#/Vol]on RBC (Bld) [#/Vol] 4.26 10 6/uL 4.20-5.40 [facility] Serum or plasma albumin/glob ulin mass ratioon 11-26-2023 Albumin/Globulin [Mass ratio] 1.1 {ratio} [facility] Serum or plasma anion gap de terminationon 11-26-2023 Anion gap [Moles/Vol] 12.5 mmol/L [facility] Serum or plasma total choles terol/high density lipoprotein (HDL) cholesterol mass johan 11-26-2023 Cholesterol.total/Chol esterol in HDL [Mass ratio] 5.8 {ratio} [facility] Comment on above: 3.3 - 4.4 LOW RISK4. 4 - 7.1 AVERAGE RISK7.1 - 11.0 MODERATE RISK>11.0 HIGH RISK Basophils Auto (Bld) [#/Vol] on 09-18-2023 Basophils (Bld) [#/Vol] 0.1 10 3/uL 0.0-0.1 [facility] Basophils/100 WBC Auto (Bld) on 09-18-2023 Basophils/100 WBC (Bld) 1.1 % 0.2-2.0 [facility] Eosinophils/100 WBC Auto (Bl d)on 09-18-2023 Eosinophils/100 WBC (Bld) 2.2 % 0.9-7.0 [facility] Erythrocyte distribution wid th Auto (RBC) [Ratio]on 09-18-2023 Erythrocyte distribution width (RBC) [Ratio] 12.2 % 11.0-15.0 [facility] Estimated glomerular filtrat ion rate (GFR) non- Americanon 09-18-2023 GFR/1.73 sq M.predicted among non-blacks MDRD (S/P/Bld) [Vol rate/Area] mL/min/{1.73_m2} >=60 [facility] Globulin Calc (S) [Mass/Vol] on 09-18-2023 Globulin (S) [Mass/Vol] 3.3 g/dL [facility] Hematocrit Auto (Bld) [Volum e fraction]on 09-18-2023 Hematocrit (Bld) [Volume fraction] 42.5 % 36.0-48.0 [facility] Hemoglobin [Mass/volume] in Bloodon 09-18-2023 Hemoglobin (Bld) [Mass/Vol] 13.5 g/dL 12.0-16.0 [facility] Laboratory - Chemistry and C hemistry - challengeon 09-18-2023 Albumin [Mass/Vol] 3.8 g/dL 3.4-5.0 [facility] ALP [Catalytic activity/Vol] 89 U/L 46-116 [facility] ALT [Catalytic activity/Vol] 26 U/L 14-59 [facility] AST [Catalytic activity/Vol] 19 U/L 15-37 [facility] Bilirubin [Mass/Vol] 0.4 mg/dL 0.2-1.0 [facility] Calcium [Mass/Vol] 8.9 mg/dL 8.5-10.1 [facility] Chloride [Moles/Vol] 105 mmol/L 98-107 [facility] CO2 [Moles/Vol] 29.0 mmol/L 21.0-32.0 [facility] Creatinine [Mass/Vol] 0.71 mg/dL 0.55-1.02 [facility] GFR/1.73 sq M.predicted MDRD (S/P/Bld) [Vol rate/Area] mL/min/{1.73_m2} >=60 [facility] Glucose [Mass/Vol] 84 mg/dL 74-106 [facility] Potassium [Moles/Vol] 4.2 mmol/L 3.5-5.1 [facility] Protein [Mass/Vol] 7.1 g/dL 6.4-8.2 [facility] Sodium [Moles/Vol] 142 mmol/L 136-145 [facility] Urea nitrogen [Mass/Vol] 13.0 mg/dL 7.0-18.0 [facility] Urea nitrogen/Creatinine [Mass ratio] 18.3 mg/mg [facility] Laboratory - Hematology and Cell countson 09-18-2023 Immature granulocytes/100 WBC (Bld) 0.2 % 0.0-0.5 [facility] Leukocytes [#/volume] correc audrey for nucleated erythrocytes in Blood by Automated counon 09-18-2023 WBC corrected for nucl RBC Auto (Bld) [#/Vol] 4.6 10 3/uL 4.0-11.0 [facility] Lymphocytes Auto (Bld) [#/Vo l]on 09-18-2023 Lymphocytes (Bld) [#/Vol] 2.6 10 3/uL 1.2-3.8 [facility] Lymphocytes/100 WBC Auto (Bl d)on 09-18-2023 Lymphocytes/100 WBC (Bld) 56.8 % 20.5-60.0 [facility] MCH Auto (RBC) [Entitic mass ]on 09-18-2023 MCH (RBC) [Entitic mass] 31.5 pg 26.7-34.0 [facility] MCHC Auto (RBC) [Mass/Vol]on 09-18-2023 MCHC (RBC) [Mass/Vol] 31.8 g/dL 29.9-35.2 [facility] MCV Auto (RBC) [Entitic vol] on 09-18-2023 MCV (RBC) [Entitic vol] 99.1 fL 81.0-99.0 [facility] Monocytes Auto (Bld) [#/Vol] on 09-18-2023 Monocytes (Bld) [#/Vol] 0.4 10 3/uL 0.3-0.8 [facility] Monocytes/100 WBC Auto (Bld) on 09-18-2023 Monocytes/100 WBC (Bld) 8.2 % 1.7-12.0 [facility] Neutrophils Auto (Bld) [#/Vo l]on 09-18-2023 Neutrophils (Bld) [#/Vol] 1.5 10 3/uL 1.4-6.5 [facility] Neutrophils/100 WBC Auto (Bl d)on 09-18-2023 Neutrophils/100 WBC (Bld) 31.5 % 43.0-75.0 [facility] No Panel Informationon 09-17 Eosinophils # (Auto) 0.1 10 3/uL 0.0-0.7 [facility] Immature Granulocyte # (Auto) 0.01 10 3/uL 0.00-0.03 [facility] Platelet mean volume Auto (B ld) [Entitic vol]on 09-18-2023 Platelet mean volume (Bld) [Entitic vol] 11.1 fL 9.5-13.5 [facility] Platelets Auto (Bld) [#/Vol] on 09-18-2023 Platelets (Bld) [#/Vol] 196 10 3/uL 150-450 [facility] RBC Auto (Bld) [#/Vol]on RBC (Bld) [#/Vol] 4.29 10 6/uL 4.20-5.40 [facility] Serum or plasma albumin/glob ulin mass ratioon 09-18-2023 Albumin/Globulin [Mass ratio] 1.2 {ratio} [facility] Serum or plasma anion gap de terminationon 09-18-2023 Anion gap [Moles/Vol] 12.2 mmol/L [facility] Alanine aminotransferase [En zymatic activity/volume] in Serum or PlasmaOrdered By: Isaías Jordan on 03-20-2023 ALT [Catalytic activity/Vol] 16 U/L [facility] [facility] ALT [Catalytic activity/Vol] Alanine aminotransferase [Enzymatic activity/volume] in Serum or Plasma [facility] Albumin [Mass/volume] in Ser um or Plasma by Bromocresol green (BCG) dye binding methoOrdered By: Isaías Jordan on 03-20-2023 Albumin BCG dye [Mass/Vol] 4.4 g/dL 3.5-5.7 [facility] Albumin BCG dye [Mass/Vol] Albumin [Mass/volume] in Serum or Plasma by Bromocresol green (BCG) dye binding metho 3.5-5.7 [facility] Alkaline phosphatase [Enzyma tic activity/volume] in Serum or PlasmaOrdered By: Isaías Jordan on 03-20-2023 ALP [Catalytic activity/Vol] 88 U/L 104 [facility] ALP [Catalytic activity/Vol] Alkaline phosphatase [Enzymatic activity/volume] in Serum or Plasma 104 [facility] Aspartate aminotransferase [ Enzymatic activity/volume] in Serum or PlasmaOrdered By: Isaías Jordan on 03-20-2023 AST [Catalytic activity/Vol] 21 U/L 39 [facility] AST [Catalytic activity/Vol] Aspartate aminotransferase [Enzymatic activity/volume] in Serum or Plasma 39 [facility] Basophils Auto (Bld) [#/Vol] Ordered By: Isaías Jordan on 03-20-2023 Basophils (Bld) [#/Vol] 0.1 10*3/uL 0.0-0.2 [facility] Basophils (Bld) [#/Vol] Automated basophil count 0.0-0.2 [facility] Basophils/100 WBC Auto (Bld) Ordered By: Isaías Jordan on 03-20-2023 Basophils/100 WBC (Bld) 1.2 % . [facility] Basophils/100 WBC (Bld) Automated basophil % . [facility] Bilirubin.total [Mass/volume ] in Serum or PlasmaOrdered By: Isaías Jordan on 03-20-2023 Bilirubin [Mass/Vol] 0.8 mg/dL 0.3-1.0 [facility] Bilirubin [Mass/Vol] Bilirubin.total [Mass/volume] in Serum or Plasma 0.3-1.0 [facility] Calcium [Mass/volume] in Ser um or PlasmaOrdered By: Isaías Jordan on 03-20-2023 Calcium [Mass/Vol] 10.3 mg/dL 8.6-10.3 [facility] Calcium [Mass/Vol] Calcium [Mass/volume ] in Serum or Plasma 8.6-10.3 [facility] Carbon dioxide, total [Moles /volume] in Serum or PlasmaOrdered By: Isaías Jordan on 03-20-2023 CO2 [Moles/Vol] 27.3 mmol/L 21.0-31.0 [facility] CO2 [Moles/Vol] Carbon dioxide, tota l [Moles/volume] in Serum or Plasma 21.0-31.0 [facility] Chloride [Moles/volume] in S daljit or PlasmaOrdered By: Isaías Jordan on 03-20-2023 Chloride [Moles/Vol] 105 mmol/L 98-107 [facility] Chloride [Moles/Vol] Chloride [Moles/vol ume] in Serum or Plasma 98-107 [facility] Creatinine [Mass/volume] in Serum or PlasmaOrdered By: Isaías Jordan on 03-20-2023 Creatinine [Mass/Vol] 0.73 mg/dL 0.60-1.20 [facility] Creatinine [Mass/Vol] Creatinine [Mass/v olume] in Serum or Plasma 0.60-1.20 [facility] Eosinophils Auto (Bld) [#/Vo l]Ordered By: Isaías Jordan on 03-20-2023 Eosinophils (Bld) [#/Vol] 0.1 10*3/uL 0.0-0.45 [facility] Eosinophils (Bld) [#/Vol] Automated eosinophil count 0.0-0.45 [facility] Eosinophils/100 WBC Auto (Bl d)Ordered By: Isaías Jordan on 03-20-2023 Eosinophils/100 WBC (Bld) 2.8 % . [facility] Eosinophils/100 WBC (Bld) Automated eosinophil % . [facility] Erythrocyte distribution wid th Auto (RBC) [Ratio]Ordered By: Isaías Jordan on 03-20-2023 Erythrocyte distribution width (RBC) [Ratio] 13.7 % 11.9-15.3 [facility] Erythrocyte distribution width (RBC) [Ratio] Erythrocyte distribution width [Ratio] by Automated count 11.9-15.3 [facility] Globulin Calc (S) [Mass/Vol] Ordered By: Isaías Jordan on 03-20-2023 Globulin (S) [Mass/Vol] 2.9 g/dL [facility] Globulin (S) [Mass/Vol] Serum globulin measurement by calculation (mass/volume) [facility] Glucose [Mass/volume] in Ser um or PlasmaOrdered By: Isaías Jordan on 03-20-2023 Glucose [Mass/Vol] 80 mg/dL 70-100 [facility] Comment on above: ADA recommended refe rence rangeRandom Glucose Reference Range is dependent on time and content of last meal. Glucose of more than 200 mg/dL in a nonstressed, ambulatory subject supports the diagnosis of Diabetes Mellitus. Glucose [Mass/Vol] Glucose [Mass/volume ] in Serum or Plasma 70-100 [facility] Comment on above: ADA recommended refe rence rangeRandom Glucose Reference Range is dependent on time and content of last meal. Glucose of more than 200 mg/dL in a nonstressed, ambulatory subject supports the diagnosis of Diabetes Mellitus. Hematocrit Auto (Bld) [Volum e fraction]Ordered By: Isaías Jordan on 03-20-2023 Hematocrit (Bld) [Volume fraction] 40.8 % 34.0-46.4 [facility] Hematocrit (Bld) [Volume fraction] Hematocrit [Volume Fraction] of Blood by Automated count 34.0-46.4 [facility] Hemoglobin [Mass/volume] in BloodOrdered By: Isaías Jordan on 03-20-2023 Hemoglobin (Bld) [Mass/Vol] 13.8 g/dL 11.8-15.4 [facility] Hemoglobin (Bld) [Mass/Vol] Hemoglobin [Mass/volume] in Blood 11.8-15.4 [facility] Leukocytes [#/volume] correc audrey for nucleated erythrocytes in Blood by Automated counOrdered By: Isaías Jordan on 03-20-2023 WBC corrected for nucl RBC Auto (Bld) [#/Vol] 5.1 10*3/uL 3.8-11.6 [facility] WBC corrected for nucl RBC Auto (Bld) [#/Vol] Leukocytes [#/volume] corrected for nucleated erythrocytes in Blood by Automated coun 3.8-11.6 [facility] Lymphocytes Auto (Bld) [#/Vo l]Ordered By: Isaías Jordan on 03-20-2023 Lymphocytes (Bld) [#/Vol] 2.0 10*3/uL 1.00-4.8 [facility] Lymphocytes (Bld) [#/Vol] Lymphocytes [#/volume] in Blood by Automated count 1.00-4.8 [facility] Lymphocytes/100 WBC Auto (Bl d)Ordered By: Isaías Jordan on 03-20-2023 Lymphocytes/100 WBC (Bld) 39.4 % . [facility] Lymphocytes/100 WBC (Bld) Lymphocytes/100 leukocytes in Blood by Automated count . [facility] MCH Auto (RBC) [Entitic mass ]Ordered By: Isaías Jordan on 03-20-2023 MCH (RBC) [Entitic mass] 32.3 pg 24.7-34.3 [facility] MCH (RBC) [Entitic mass] MCH [Entitic mass] by Automated count 24.7-34.3 [facility] MCHC Auto (RBC) [Mass/Vol]Or dered By: Isaías Jordan on 03-20-2023 MCHC (RBC) [Mass/Vol] 33.7 g/dL 32.0-35.0 [facility] MCHC (RBC) [Mass/Vol] MCHC [Mass/volume] by Automated count 32.0-35.0 [facility] MCV Auto (RBC) [Entitic vol] Ordered By: Isaías Jordan on 03-20-2023 MCV (RBC) [Entitic vol] 95.7 fL 80-100 [facility] MCV (RBC) [Entitic vol] MCV [Entitic volume] by Automated count 80-100 [facility] Monocytes Auto (Bld) [#/Vol] Ordered By: Isaías Jordan on 03-20-2023 Monocytes (Bld) [#/Vol] 0.5 10*3/uL 0.0-0.8 [facility] Monocytes (Bld) [#/Vol] Automated blood monocyte count 0.0-0.8 [facility] Monocytes/100 WBC Auto (Bld) Ordered By: Isaías Jordan on 03-20-2023 Monocytes/100 WBC (Bld) 9.0 % . [facility] Monocytes/100 WBC (Bld) Automated monocyte % . [facility] Neutrophils Auto (Bld) [#/Vo l]Ordered By: Isaías Jordan on 03-20-2023 Neutrophils (Bld) [#/Vol] 2.4 10*3/uL 1.8-7.7 [facility] Neutrophils (Bld) [#/Vol] Neutrophils [#/volume] in Blood by Automated count 1.8-7.7 [facility] Neutrophils/100 WBC Auto (Bl d)Ordered By: Isaías Jordan on 03-20-2023 Neutrophils/100 WBC (Bld) 47.6 % . [facility] Neutrophils/100 WBC (Bld) Automated neutrophil % . [facility] No Panel InformationOrdered By: Isaías Jordan on 03-20-2023 Estimated GFR (CKD-EPI) > 60.0 mL/Min [facility] Creatinine Clearance (Chem 86.44 [facility] Nucleated erythrocytes [Pres ence] in Blood by Automated countOrdered By: Isaías Jordan on 03-20-2023 Nucleated RBC Auto Ql (Bld) 0.1 /100{WBC} 0-0.5 [facility] Nucleated RBC Auto Ql (Bld) Nucleated erythrocytes [Presence] in Blood by Automated count 0-0.5 [facility] Platelet mean volume Auto (B ld) [Entitic vol]Ordered By: Isaías Jordan on 03-20-2023 Platelet mean volume (Bld) [Entitic vol] 8.9 fL 6.3-10.7 [facility] Platelet mean volume (Bld) [Entitic vol] Platelet mean volume [Entitic volume] in Blood by Automated count 6.3-10.7 [facility] Platelets Auto (Bld) [#/Vol] Ordered By: Isaías Jordan on 03-20-2023 Platelets (Bld) [#/Vol] 198 10*3/uL 150-450 [facility] Platelets (Bld) [#/Vol] Platelets [#/volume] in Blood by Automated count 150-450 [facility] Potassium [Moles/volume] in Serum or PlasmaOrdered By: Isaías Jordan on 03-20-2023 Potassium [Moles/Vol] 4.3 mmol/L 3.5-5.1 [facility] Potassium [Moles/Vol] Potassium [Moles/v olume] in Serum or Plasma 3.5-5.1 [facility] Protein [Mass/volume] in Ser um or PlasmaOrdered By: Isaías Jordan on 03-20-2023 Protein [Mass/Vol] 7.3 g/dL 6.4-8.9 [facility] Protein [Mass/Vol] Protein [Mass/volume ] in Serum or Plasma 6.4-8.9 [facility] RBC Auto (Bld) [#/Vol]Ordere d By: Isaías Jordan on 03-20-2023 RBC (Bld) [#/Vol] 4.26 10*6/uL 3.60-5.00 [facility] RBC (Bld) [#/Vol] Erythrocytes [#/volu me] in Blood by Automated count 3.60-5.00 [facility] Serum or plasma albumin/glob ulin mass ratioOrdered By: Isaías Jordan on 03-20-2023 Albumin/Globulin [Mass ratio] 1.5 {ratio} [facility] Albumin/Globulin [Mass ratio] Serum or plasma albumin/globulin mass ratio [facility] Serum or plasma anion gap de terminationOrdered By: Isaías Jordan on 03-20-2023 Anion gap [Moles/Vol] 11.0 mmol/L 6.0-15.0 [facility] Anion gap [Moles/Vol] Serum or plasma an ion gap determination 6.0-15.0 [facility] Serum or plasma carcinoembry onic antigen measurement (mass/volume)Ordered By: Isaías Jordan on 03-20-2023 Carcinoembryonic Ag [Mass/Vol] 3.3 ng/mL High 0.0-3.0 [facility] Carcinoembryonic Ag [Mass/Vol] Serum or plasma carcinoembryonic antigen measurement (mass/volume) High 0.0-3.0 [facility] Sodium [Moles/volume] in Ser um or PlasmaOrdered By: Isaías Jordan on 03-20-2023 Sodium [Moles/Vol] 139 mmol/L 136-145 [facility] Sodium [Moles/Vol] Sodium [Moles/volume ] in Serum or Plasma 136-145 [facility] Urea nitrogen [Mass/volume] in Serum or PlasmaOrdered By: Isaías Jordan on 03-20-2023 Urea nitrogen [Mass/Vol] 16 mg/dL 7 [facility] Urea nitrogen [Mass/Vol] Urea nitrogen [Mass/volume] in Serum or Plasma 01-28 [facility] WBC Auto (Bld) [#/Vol]Ordere d By: Isaías Jordan on 03-20-2023 WBC (Bld) [#/Vol] 5.1 10*3/uL 3.8-11.6 [facility] WBC (Bld) [#/Vol] Leukocytes [#/volume ] in Blood by Automated count 3.8-11.6 [facility] CBC AUTO DIFFon 11-16-2022 BASO # 0.0 103/ul Normal 0.0-0.1 [facility] Comment on above: Performed By: #### C BC #### [facility] [address], [place] [address] Dr. Doreen Betancourt Basophils/100 WBC (Bld) 0.6 % Normal 0.2-2.0 [facility] Comment on above: Performed By: #### C BC #### [facility] [address] [place] [address] Dr. Doreen Betancourt EO # 0.0 103/ul Normal 0.0-0.7 [facility] Comment on above: Performed By: #### C BC #### [facility] [address] [place] [address] Dr. Doreen Betancourt Eosinophils/100 WBC (Bld) 0.6 % Critically low 0.9-7.0 [facility] Comment on above: Performed By: #### C BC #### [facility] [address] [place] [address] Dr. Doreen Betancourt Erythrocyte distribution width (RBC) [Ratio] 13.7 % Normal 11.0-15.0 [facility] Comment on above: Performed By: #### C BC #### [facility] [address] [place] [address] Dr. Doreen Betancourt Hematocrit (Bld) [Volume fraction] 41.0 % Normal 36.0-48.0 [facility] Comment on above: Performed By: #### C BC #### [facility] [address] [place] [address] Dr. Doreen Betancourt Hemoglobin (Bld) [Mass/Vol] 13.1 g/dL Normal 12.0-16.0 [facility] Comment on above: Performed By: #### C BC #### [facility] [address] [place] [address] Dr. Doreen Betancourt IG # 0.00 10e3/ul Normal 0.00-0.03 [facility] Comment on above: Performed By: #### C BC #### [facility] [address] [place] [address] Dr. Doreen Betancourt IG % 0.0 % Normal 0.0-0.5 [facility] Comment on above: Performed By: #### C BC #### [facility] [address] [place] [address] Dr. Doreen Betancourt LYMPH # 2.0 103/ul Normal 1.2-3.8 [facility] Comment on above: Performed By: #### C BC #### [facility] [address] [place] [address] Dr. Doreen Betancourt Lymphocytes/100 WBC (Bld) 55.3 % Normal 20.5-60.0 [facility] Comment on above: Performed By: #### C BC #### [facility] [address] [place] [address] Dr. Doreen Betancourt MANUAL DIFF REQ NO Normal [facility] Comment on above: Performed By: #### C BC #### [facility] [address] [place] [address] Dr. Doreen Betancourt MCH (RBC) [Entitic mass] 33.2 pg Normal 26.7-34.0 [facility] Comment on above: Performed By: #### C BC #### [facility] [address] [place] [address] Dr. Doreen Betancourt MCHC (RBC) [Mass/Vol] 32.0 g/dL Normal 29.9-35.2 [facility] Comment on above: Performed By: #### C BC #### [facility] [address] [place] [address] Dr. Doreen Betancourt MCV (RBC) [Entitic vol] 104.1 fL Critically high 81.0-99.0 [facility] Comment on above: Performed By: #### C BC #### [facility] [address] [place] [address] Dr. Doreen Betancourt MONO # 0.7 103/ul Normal 0.3-0.8 [facility] Comment on above: Performed By: #### C BC #### [facility] [address] [place] [address] Dr. Doreen Betancourt Monocytes/100 WBC (Bld) 18.7 % Critically high 1.7-12.0 [facility] Comment on above: Performed By: #### C BC #### [facility] [address] [place] [address] Dr. Doreen Betancourt NEUT # 0.9 103/ul Critically low 1.4-6.5 [facility] Comment on above: Performed By: #### C BC #### [facility] [address] [place] [address] Dr. Doreen Betancourt Neutrophils/100 WBC (Bld) 24.8 % Critically low 43.0-75.0 [facility] Comment on above: Performed By: #### C BC #### [facility] [address] [place] [address] Dr. Doreen Betancourt Platelet mean volume (Bld) [Entitic vol] 10.5 fL Normal 9.5-13.5 [facility] Comment on above: Performed By: #### C BC #### [facility] [address] [place] [address] Dr. Doreen Betancourt PLT 121 103/ul Critically low 150-450 [facility] Comment on above: Performed By: #### C BC #### [facility] [address] [place] [address] Dr. Doreen Betancourt RBC 3.94 106/ul Critically low 4.20-5.40 [facility] Comment on above: Performed By: #### C BC #### [facility] [address] [place] [address] Dr. Doreen Betancourt WBC 3.6 103/ul Critically low 4.0-11.0 [facility] Comment on above: Performed By: #### C BC #### [facility] [address] [place] [address] Dr. Doreen Betancourt MAGNESIUMon 11-16-2022 Magnesium [Mass/Vol] 2.0 mg/dL Normal 1.8-2.4 [facility] Comment on above: Performed By: #### M G, CMP #### [facility] [address] [place] [address] Dr. Doreen Betancourt PROF 14(COMP METB)on 023 Albumin [Mass/Vol] 3.7 g/dL Normal 3.4-5.0 [facility] Comment on above: Performed By: #### M G, CMP #### [facility] [address] [place] [address] Dr. Doreen Betancourt Albumin/Globulin [Mass ratio] 1.0 {ratio} Normal [facility] Comment on above: Performed By: #### M Salena, CMP #### [facility] [address] [place] [address] [address] Doreen Betancourt ALP [Catalytic activity/Vol] 161 U/L Critically high 46-116 [facility] Comment on above: Performed By: #### M G, CMP #### [facility] [address] [place] [address] Dr. Doreen Betancourt ALT [Catalytic activity/Vol] 49 U/L Normal 14-59 [facility] Comment on above: Performed By: #### M G, CMP #### [facility] [address] [place] [address] [address] Doreen Betancourt Anion gap [Moles/Vol] 9.8 mmol/L Normal [facility] Comment on above: Performed By: #### M G, CMP #### [facility] [address] [place] [address] Dr. Doreen Betancourt AST [Catalytic activity/Vol] 44 U/L Critically high 15-37 [facility] Comment on above: Performed By: #### M G, CMP #### [facility] [address] [place] [address] Dr. Doreen Betancourt Bilirubin [Mass/Vol] 0.4 mg/dL Normal 0.2-1.0 [facility] Comment on above: Performed By: #### M G, CMP #### [facility] [address] [place] [address] Dr. Doreen Betancourt Calcium [Mass/Vol] 9.6 mg/dL Normal 8.5-10.1 [facility] Comment on above: Performed By: #### M G, CMP #### [facility] [address] [place] [address] Dr. Doreen Betancourt Chloride [Moles/Vol] 106 mmol/L Normal 98-107 [facility] Comment on above: Performed By: #### M G, CMP #### [facility] [address] [place] [address] Dr. Doreen Betancourt CO2 [Moles/Vol] 30.1 mmol/L Normal 21.0-32.0 [facility] Comment on above: Performed By: #### M G, CMP #### [facility] [address] [place] [address] Dr. Doreen Betancourt Creatinine [Mass/Vol] 0.68 mg/dL Normal 0.55-1.02 [facility] Comment on above: Performed By: #### M G, CMP #### [facility] [address] [place] [address] Dr. Doreen Betancourt EGFR-AF DANISH >60 Normal >=60 [facility] Comment on above: Performed By: #### M G, CMP #### [facility] [address] [place] [address] Dr. Doreen Betancourt EGFR-NON AF DANISH >60 Normal >=60 [facility] Comment on above: Performed By: #### M G, CMP #### [facility] [address] [place] [address] Dr. Doreen Betancourt Globulin (S) [Mass/Vol] 3.7 g/dL Normal [facility] Comment on above: Performed By: #### M G, CMP #### [facility] [address] [place] [address] Dr. Doreen Betancourt Glucose [Mass/Vol] 107 mg/dL Critically high 74-106 T [facility] Comment on above: Performed By: #### M G, CMP #### [facility] [address] [place] [address] Dr. Doreen Betancourt Potassium [Moles/Vol] 4.9 mmol/L Normal 3.5-5.1 [facility] Comment on above: Performed By: #### M G, CMP #### [facility] [address] [place] [address] Dr. Doreen Betancourt Protein [Mass/Vol] 7.4 g/dL Normal 6.4-8.2 [facility] Comment on above: Performed By: #### M G, CMP #### [facility] [address] [place] [address] Dr. Doreen Betancourt Sodium [Moles/Vol] 141 mmol/L Normal 136-145 [facility] Comment on above: Performed By: #### M G, CMP #### [facility] [address] [place] [address] Dr. Doreen Betancourt Urea nitrogen [Mass/Vol] 11.0 mg/dL Normal 7.0-18.0 [facility] Comment on above: Performed By: #### M G, CMP #### [facility] [address] [place] [address] Dr. Doreen Betancourt Urea nitrogen/Creatinine [Mass ratio] 16.2 mg/mg Normal [facility] Comment on above: Performed By: #### M G, CMP #### [facility] [address] [place] [address] Dr. Doreen Betancourt CBC AUTO DIFFon 11-02-2022 BASO # 0.0 103/ul Normal 0.0-0.1 [facility] Comment on above: Performed By: #### M G, CMP #### [facility] [address] [place] [address] Dr. Doreen Betancourt Basophils/100 WBC (Bld) 0.5 % Normal 0.2-2.0 [facility] Comment on above: Performed By: #### M G, CMP #### [facility] [address] [place] [address] Dr. Doreen Betancourt EO # 0.0 103/ul Normal 0.0-0.7 [facility] Comment on above: Performed By: #### M G, CMP #### [facility] [address] [place] [address] Dr. Doreen Betancourt Eosinophils/100 WBC (Bld) 0.8 % Critically low 0.9-7.0 [facility] Comment on above: Performed By: #### M G, CMP #### [facility] [address] [place] [address] Dr. Doreen Betancourt Erythrocyte distribution width (RBC) [Ratio] 13.2 % Normal 11.0-15.0 [facility] Comment on above: Performed By: #### M G, CMP #### [facility] [address] [place] [address] Dr. Doreen Betancourt Hematocrit (Bld) [Volume fraction] 40.7 % Normal 36.0-48.0 [facility] Comment on above: Performed By: #### Gay Martino, CMP #### [facility] [address] [place] [address] Dr. Doreen Betancourt Hemoglobin (Bld) [Mass/Vol] 13.5 g/dL Normal 12.0-16.0 [facility] Comment on above: Performed By: #### M G, CMP #### [facility] [address] [place] [address] Dr. Doreen Betancourt IG # 0.00 10e3/ul Normal 0.00-0.03 [facility] Comment on above: Performed By: #### M G, CMP #### [facility] [address] [place] [address] Dr. Doreen Betancourt IG % 0.0 % Normal 0.0-0.5 [facility] Comment on above: Performed By: #### M G, CMP #### [facility] [address] [place] [address] Dr. Doreen Betancourt LYMPH # 1.9 103/ul Normal 1.2-3.8 [facility] Comment on above: Performed By: #### M G, CMP #### [facility] [address] [place] [address] Dr. Doreen Betancourt Lymphocytes/100 WBC (Bld) 51.8 % Normal 20.5-60.0 [facility] Comment on above: Performed By: #### M G, CMP #### [facility] [address] [place] [address] Dr. Doreen Betancourt MANUAL DIFF REQ NO Normal [facility] Comment on above: Performed By: #### M G, CMP #### [facility] [address] [place] [address] Dr. Doreen Betancourt MCH (RBC) [Entitic mass] 34.3 pg Critically high 26.7-34.0 [facility] Comment on above: Performed By: #### M G, CMP #### [facility] [address] [place] [address] Dr. Doreen Betancourt MCHC (RBC) [Mass/Vol] 33.2 g/dL Normal 29.9-35.2 [facility] Comment on above: Performed By: #### M G, CMP #### [facility] [address] [place] [address] Dr. Doreen Betancourt MCV (RBC) [Entitic vol] 103.3 fL Critically high 81.0-99.0 [facility] Comment on above: Performed By: #### M G, CMP #### [facility] [address] [place] [address] Dr. Doreen Betancourt MONO # 0.5 103/ul Normal 0.3-0.8 [facility] Comment on above: Performed By: #### M G, CMP #### [facility] [address] [place] [address] Dr. Doreen Betancourt Monocytes/100 WBC (Bld) 13.9 % Critically high 1.7-12.0 [facility] Comment on above: Performed By: #### M G, CMP #### [facility] [address] [place] [address] Dr. Doreen Betancourt NEUT # 1.2 103/ul Critically low 1.4-6.5 [facility] Comment on above: Performed By: #### M G, CMP #### [facility] [address] [place] [address] Dr. Doreen Betancourt Neutrophils/100 WBC (Bld) 33.0 % Critically low 43.0-75.0 [facility] Comment on above: Performed By: #### M G, CMP #### [facility] [address] [place] [address] Dr. Doreen Betancourt Platelet mean volume (Bld) [Entitic vol] 10.0 fL Normal 9.5-13.5 [facility] Comment on above: Performed By: #### M G, CMP #### [facility] [address] [place] [address] Dr. Doreen Betancourt PLT 129 103/ul Critically low 150-450 [facility] Comment on above: Performed By: #### M G, CMP #### [facility] [address] [place] [address] Dr. Doreen Betancourt RBC 3.94 106/ul Critically low 4.20-5.40 [facility] Comment on above: Performed By: #### M G, CMP #### [facility] [address] [place] [address] Dr. Doreen Betancourt WBC 3.7 103/ul Critically low 4.0-11.0 [facility] Comment on above: Performed By: #### M G, CMP #### [facility] [address] [place] [address] Dr. Doreen Betancourt MAGNESIUMon 11-02-2022 Magnesium [Mass/Vol] 2.0 mg/dL Normal 1.8-2.4 [facility] Comment on above: Performed By: #### M G, CMP #### [facility] [address] [place] [address] Dr. Doreen Betancourt PROF 14(COMP METB)on 023 Albumin [Mass/Vol] 3.7 g/dL Normal 3.4-5.0 [facility] Comment on above: Performed By: #### Gay Martino, CMP #### [facility] [address] [place] [address] Dr. Doreen Betancourt Albumin/Globulin [Mass ratio] 1.0 {ratio} Normal [facility] Comment on above: Performed By: #### Gay Martino, CMP #### [facility] [address] [place] [address] Dr. Doreen Betancourt ALP [Catalytic activity/Vol] 133 U/L Critically high 46-116 [facility] Comment on above: Performed By: #### Gay G, CMP #### [facility] [address] [place] [address] Dr. Doreen Betancourt ALT [Catalytic activity/Vol] 47 U/L Normal 14-59 [facility] Comment on above: Performed By: #### M G, CMP #### [facility] [address] [place] [address] Dr. Doreen Betancourt Anion gap [Moles/Vol] 10.8 mmol/L Normal [facility] Comment on above: Performed By: #### M G, CMP #### [facility] [address] [place] [address] Dr. Doreen Betancourt AST [Catalytic activity/Vol] 39 U/L Critically high 15-37 [facility] Comment on above: Performed By: #### M G, CMP #### [facility] [address] [place] [address] Dr. Doreen Betancourt Bilirubin [Mass/Vol] 0.5 mg/dL Normal 0.2-1.0 [facility] Comment on above: Performed By: #### M G, CMP #### [facility] [address] [place] [address] Dr. Doreen Betancourt Calcium [Mass/Vol] 9.4 mg/dL Normal 8.5-10.1 [facility] Comment on above: Performed By: #### M G, CMP #### [facility] [address] [place] [address] Dr. Doreen Betancourt Chloride [Moles/Vol] 107 mmol/L Normal 98-107 [facility] Comment on above: Performed By: #### M G, CMP #### [facility] [address] [place] [address] Dr. Doreen Betancourt CO2 [Moles/Vol] 27.7 mmol/L Normal 21.0-32.0 [facility] Comment on above: Performed By: #### M G, CMP #### [facility] [address] [place] [address] Dr. Doreen Betancourt Creatinine [Mass/Vol] 0.70 mg/dL Normal 0.55-1.02 [facility] Comment on above: Performed By: #### M G, CMP #### [facility] [address] [place] [address] Dr. Doreen Betancourt EGFR-AF DANISH >60 Normal >=60 [facility] Comment on above: Performed By: #### M G, CMP #### [facility] [address] [place] [address] Dr. Doreen Betancourt EGFR-NON AF DANISH >60 Normal >=60 [facility] Comment on above: Performed By: #### M G, CMP #### [facility] [address] [place] [address] Dr. Doreen Betancourt Globulin (S) [Mass/Vol] 3.7 g/dL Normal [facility] Comment on above: Performed By: #### M G, CMP #### [facility] [address] [address] [address] Doreen Betancourt Glucose [Mass/Vol] 99 mg/dL Normal 74-106 [facility] Comment on above: Performed By: #### M G, CMP #### [facility] [address] [address] [address] Doreen Betancourt Potassium [Moles/Vol] 4.5 mmol/L Normal 3.5-5.1 [facility] Comment on above: Performed By: #### M G, CMP #### [facility] [address] [place] [address] Dr. Doreen Betancourt Protein [Mass/Vol] 7.4 g/dL Normal 6.4-8.2 [facility] Comment on above: Performed By: #### M G, CMP #### [facility] [address] [place] [address] Dr. Doreen Betancourt Sodium [Moles/Vol] 141 mmol/L Normal 136-145 [facility] Comment on above: Performed By: #### M G, CMP #### [facility] [address] [place] [address] Dr. Doreen Betancourt Urea nitrogen [Mass/Vol] 13.0 mg/dL Normal 7.0-18.0 [facility] Comment on above: Performed By: #### M G, CMP #### [facility] [address] [place] [address] Dr. Doreen Betancourt Urea nitrogen/Creatinine [Mass ratio] 18.6 mg/mg Normal [facility] Comment on above: Performed By: #### M G, CMP #### [facility] [address] [place] [address] Dr. Doreen Betancourt CBC AUTO DIFFon 10-19-2022 BASO # 0.1 103/ul Normal 0.0-0.1 [facility] Comment on above: Performed By: #### C BC #### [facility] [address] [place] [address] Dr. Doreen Betancourt Basophils/100 WBC (Bld) 1.0 % Normal 0.2-2.0 [facility] Comment on above: Performed By: #### C BC #### [facility] [address] [place] [address] Dr. Doreen Betancourt EO # 0.0 103/ul Normal 0.0-0.7 [facility] Comment on above: Performed By: #### C BC #### [facility] [address] [place] [address] Dr. Doreen Betancourt Eosinophils/100 WBC (Bld) 0.8 % Critically low 0.9-7.0 [facility] Comment on above: Performed By: #### C BC #### [facility] [address] [place] [address] Dr. Doreen Betancourt Erythrocyte distribution width (RBC) [Ratio] 13.2 % Normal 11.0-15.0 [facility] Comment on above: Performed By: #### C BC #### [facility] [address] [place] [address] Dr. Doreen Betancourt Hematocrit (Bld) [Volume fraction] 40.3 % Normal 36.0-48.0 [facility] Comment on above: Performed By: #### C BC #### [facility] [address] [place] [address] Dr. Doreen Betancourt Hemoglobin (Bld) [Mass/Vol] 13.3 g/dL Normal 12.0-16.0 [facility] Comment on above: Performed By: #### C BC #### [facility] [address] [place] [address] Dr. Doreen Betancourt IG # 0.02 10e3/ul Normal 0.00-0.03 [facility] Comment on above: Performed By: #### C BC #### [facility] [address] [place] [address] Dr. Doreen Betancourt IG % 0.4 % Normal 0.0-0.5 [facility] Comment on above: Performed By: #### C BC #### [facility] [address] [place] [address] Dr. Doreen Betancourt LYMPH # 1.8 103/ul Normal 1.2-3.8 [facility] Comment on above: Performed By: #### C BC #### [facility] [address] [place] [address] Dr. Doreen Betancourt Lymphocytes/100 WBC (Bld) 36.8 % Normal 20.5-60.0 [facility] Comment on above: Performed By: #### C BC #### [facility] [address] [place] [address] Dr. Doreen Betancourt MANUAL DIFF REQ NO Normal [facility] Comment on above: Performed By: #### C BC #### [facility] [address] [place] [address] Dr. Doreen Betancourt MCH (RBC) [Entitic mass] 33.8 pg Normal 26.7-34.0 [facility] Comment on above: Performed By: #### C BC #### [facility] [address] [place] [address] Dr. Doreen Betancourt MCHC (RBC) [Mass/Vol] 33.0 g/dL Normal 29.9-35.2 [facility] Comment on above: Performed By: #### C BC #### [facility] [address] [place] [address] Dr. Doreen Betancourt MCV (RBC) [Entitic vol] 102.5 fL Critically high 81.0-99.0 [facility] Comment on above: Performed By: #### C BC #### [facility] [address] [place] [address] Dr. Doreen Betancourt MONO # 0.6 103/ul Normal 0.3-0.8 [facility] Comment on above: Performed By: #### C BC #### [facility] [address] [place] [address] Dr. Doreen Betancourt Monocytes/100 WBC (Bld) 12.3 % Critically high 1.7-12.0 [facility] Comment on above: Performed By: #### C BC #### [facility] [address] [place] [address] Dr. Doreen Betancourt NEUT # 2.4 103/ul Normal 1.4-6.5 [facility] Comment on above: Performed By: #### C BC #### [facility] [address] [place] [address] Dr. Doreen Betancourt Neutrophils/100 WBC (Bld) 48.7 % Normal 43.0-75.0 [facility] Comment on above: Performed By: #### C BC #### [facility] [address] [place] [address] Dr. Doreen Betancourt Platelet mean volume (Bld) [Entitic vol] 10.3 fL Normal 9.5-13.5 [facility] Comment on above: Performed By: #### C BC #### [facility] [address] [place] [address] Dr. Doreen Betancourt PLT 239 103/ul Normal 150-450 [facility] Comment on above: Performed By: #### C BC #### [facility] [address] [place] [address] Dr. Doreen Betancourt RBC 3.93 106/ul Critically low 4.20-5.40 [facility] Comment on above: Performed By: #### C BC #### [facility] [address] [place] [address] Dr. Doreen Betancourt WBC 4.9 103/ul Normal 4.0-11.0 [facility] Comment on above: Performed By: #### C BC #### [facility] [address] [place] [address] Dr. Doreen Betancourt MAGNESIUMon 10-19-2022 Magnesium [Mass/Vol] 1.9 mg/dL Normal 1.8-2.4 [facility] Comment on above: Performed By: #### M G, CMP #### [facility] [address] [place] [address] Dr. Doreen Betancourt PROF 14(COMP METB)on 023 Albumin [Mass/Vol] 3.5 g/dL Normal 3.4-5.0 [facility] Comment on above: Performed By: #### C MP, MG #### [facility] [address] [place] [address] Dr. Doreen Betancourt Albumin/Globulin [Mass ratio] 0.9 {ratio} Normal [facility] Comment on above: Performed By: #### C MP, MG #### [facility] [address] [address] [address] Doreen Betancourt ALP [Catalytic activity/Vol] 153 U/L Critically high 46-116 [facility] Comment on above: Performed By: #### C MP, MG #### [facility] [address] [address] [address] Doreen Betancourt ALT [Catalytic activity/Vol] 36 U/L Normal 14-59 [facility] Comment on above: Performed By: #### C MP, MG #### [facility] [address] [address] [address] Doreen Betancourt Anion gap [Moles/Vol] 11.7 mmol/L Normal Th [facility] Comment on above: Performed By: #### C MP, MG #### [facility] [address] [address] [address] Doreen Betancourt AST [Catalytic activity/Vol] 30 U/L Normal 15-37 [facility] Comment on above: Performed By: #### C MP, MG #### [facility] [address] [address] [address] Doreen Betancourt Bilirubin [Mass/Vol] 0.5 mg/dL Normal 0.2-1.0 [facility] Comment on above: Performed By: #### C MP, MG #### [facility] [address] [address] [address] Doreen Betancourt Calcium [Mass/Vol] 9.2 mg/dL Normal 8.5-10.1 [facility] Comment on above: Performed By: #### C MP, MG #### [facility] [address] [address] [address] Doreen Betancourt Chloride [Moles/Vol] 105 mmol/L Normal 98-107 [facility] Comment on above: Performed By: #### C MP, MG #### [facility] [address] [address] [address] Doreen Betancourt CO2 [Moles/Vol] 27.3 mmol/L Normal 21.0-32.0 [facility] Comment on above: Performed By: #### C MP, MG #### [facility] [address] [address] [address] Doreen Betancourt Creatinine [Mass/Vol] 0.75 mg/dL Normal 0.55-1.02 [facility] Comment on above: Performed By: #### C MP, MG #### [facility] [address] [address] [address] Doreen Betancourt EGFR-AF DANISH >60 Normal >=60 [facility] Comment on above: Performed By: #### C MP, MG #### [facility] [address] [address] [address] Doreen Betancourt EGFR-NON AF DANISH >60 Normal >=60 [facility] Comment on above: Performed By: #### C MP, MG #### [facility] [address] [place] [address] Dr. Doreen Betancourt Globulin (S) [Mass/Vol] 4.0 g/dL Normal [facility] Comment on above: Performed By: #### C MP, MG #### [facility] [address] [place] [address] Dr. Doreen Betancourt Glucose [Mass/Vol] 89 mg/dL Normal 74-106 [facility] Comment on above: Performed By: #### C MP, MG #### [facility] [address] [place] [address] Dr. Doreen Betancourt Potassium [Moles/Vol] 4.0 mmol/L Normal 3.5-5.1 [facility] Comment on above: Performed By: #### C MP, MG #### [facility] [address] [place] [address] Dr. Doreen Betancourt Protein [Mass/Vol] 7.5 g/dL Normal 6.4-8.2 [facility] Comment on above: Performed By: #### C MP, MG #### [facility] [address] [place] [address] Dr. Doreen Betancourt Sodium [Moles/Vol] 140 mmol/L Normal 136-145 [facility] Comment on above: Performed By: #### C MP, MG #### [facility] [address] [address] [address] Doreen Betancourt Urea nitrogen [Mass/Vol] 18.0 mg/dL Normal 7.0-18.0 [facility] Comment on above: Performed By: #### C MP, MG #### [facility] [address] [place] [address] Dr. Doreen Betancourt Urea nitrogen/Creatinine [Mass ratio] 24.0 mg/mg Normal [facility] Comment on above: Performed By: #### C MP, MG #### [facility] [address] [place] [address] Dr. Doreen Betancourt Magnesium [Mass/volume] in S daljit or PlasmaOrdered By: Isaías Jordan on 09-23-2022 Magnesium [Mass/Vol] 2.2 mg/dL 1.9-2.7 [facility] Magnesium [Mass/Vol] Magnesium [Mass/vol ume] in Serum or Plasma 1.9-2.7 [facility] CBC AUTO DIFFon 09-14-2022 BASO # 0.0 103/ul Normal 0.0-0.1 [facility] Comment on above: Performed By: #### C BC #### [facility] [address] [place] [address] Dr. Doreen Betancourt Basophils/100 WBC (Bld) 0.3 % Normal 0.2-2.0 [facility] Comment on above: Performed By: #### C BC #### [facility] [address] [place] [address] Dr. Doreen Betancourt EO # 0.0 103/ul Normal 0.0-0.7 [facility] Comment on above: Performed By: #### C BC #### [facility] [address] [place] [address] Dr. Doreen Betancourt Eosinophils/100 WBC (Bld) 0.9 % Normal 0.9-7.0 [facility] Comment on above: Performed By: #### C BC #### [facility] [address] [place] [address] Dr. Doreen Betancourt Erythrocyte distribution width (RBC) [Ratio] 16.3 % Critically high 11.0-15.0 [facility] Comment on above: Performed By: #### C BC #### [facility] [address] [place] [address] Dr. Doreen Betancourt Hematocrit (Bld) [Volume fraction] 37.3 % Normal 36.0-48.0 [facility] Comment on above: Performed By: #### C BC #### [facility] [address] [place] [address] Dr. Doreen Betancourt Hemoglobin (Bld) [Mass/Vol] 12.4 g/dL Normal 12.0-16.0 [facility] Comment on above: Performed By: #### C BC #### [facility] [address] [place] [address] Dr. Doreen Betancourt IG # 0.01 10e3/ul Normal 0.00-0.03 [facility] Comment on above: Performed By: #### C BC #### [facility] [address] [place] [address] Dr. Doreen Betancourt IG % 0.3 % Normal 0.0-0.5 [facility] Comment on above: Performed By: #### C BC #### [facility] [address] [place] [address] Dr. Doreen Betancourt LYMPH # 1.1 103/ul Critically low 1.2-3.8 [facility] Comment on above: Performed By: #### C BC #### [facility] [address] [place] [address] Dr. Doreen Betancourt Lymphocytes/100 WBC (Bld) 30.7 % Normal 20.5-60.0 [facility] Comment on above: Performed By: #### C BC #### [facility] [address] [place] [address] Dr. Doreen Betancourt MANUAL DIFF REQ NO Normal [facility] Comment on above: Performed By: #### C BC #### [facility] [address] [place] [address] Dr. Doreen Betancourt MCH (RBC) [Entitic mass] 34.3 pg Critically high 26.7-34.0 [facility] Comment on above: Performed By: #### C BC #### [facility] [address] [address] [address] Doreen Betancourt MCHC (RBC) [Mass/Vol] 33.2 g/dL Normal 29.9-35.2 [facility] Comment on above: Performed By: #### C BC #### [facility] [address] [address] [address] Doreen Betancourt MCV (RBC) [Entitic vol] 103.3 fL Critically high 81.0-99.0 [facility] Comment on above: Performed By: #### C BC #### [facility] [address] [place] [address] Dr. Doreen Betancourt MONO # 0.4 103/ul Normal 0.3-0.8 [facility] Comment on above: Performed By: #### C BC #### [facility] [address] [place] [address] Dr. Doreen Betancourt Monocytes/100 WBC (Bld) 11.4 % Normal 1.7-12.0 [facility] Comment on above: Performed By: #### C BC #### [facility] [address] [place] [address] Dr. Doreen Betancourt NEUT # 2.0 103/ul Normal 1.4-6.5 [facility] Comment on above: Performed By: #### C BC #### [facility] [address] [place] [address] Dr. Doreen Betancourt Neutrophils/100 WBC (Bld) 56.4 % Normal 43.0-75.0 [facility] Comment on above: Performed By: #### C BC #### [facility] [address] [address] [address] Doreen Betancourt Platelet mean volume (Bld) [Entitic vol] 10.0 fL Normal 9.5-13.5 [facility] Comment on above: Performed By: #### C BC #### [facility] [address] [address] [address] Doreen Betancourt PLT 128 103/ul Critically low 150-450 [facility] Comment on above: Performed By: #### C BC #### [facility] [address] [place] [address] Dr. Doreen Betancourt RBC 3.61 106/ul Critically low 4.20-5.40 [facility] Comment on above: Performed By: #### C BC #### [facility] [address] [place] [address] Dr. Doreen Betancourt WBC 3.5 103/ul Critically low 4.0-11.0 [facility] Comment on above: Performed By: #### C BC #### [facility] [address] [place] [address] Dr. Doreen Betancourt MAGNESIUMon 09-14-2022 Magnesium [Mass/Vol] 1.9 mg/dL Normal 1.8-2.4 [facility] Comment on above: Performed By: #### C VDTBH #### [facility] [address] [place] [address] Dr. Doreen Betancourt PROF 14(COMP METB)on 023 Albumin [Mass/Vol] 3.7 g/dL Normal 3.4-5.0 [facility] Comment on above: Performed By: #### C VDTBH #### [facility] [address] [place] [address] Dr. Doreen Betancourt Albumin/Globulin [Mass ratio] 1.1 {ratio} Normal [facility] Comment on above: Performed By: #### C VDTBH #### [facility] [address] [place] [address] Dr. Doreen Betancourt ALP [Catalytic activity/Vol] 138 U/L Critically high 46-116 [facility] Comment on above: Performed By: #### C VDTBH #### [facility] [address] [place] [address] Dr. Doreen Betancourt ALT [Catalytic activity/Vol] 42 U/L Normal 14-59 [facility] Comment on above: Performed By: #### C VDTBH #### [facility] [address] [place] [address] Dr. Doreen Betancourt Anion gap [Moles/Vol] 11.0 mmol/L Normal Th e [facility] Comment on above: Performed By: #### C VDTBH #### [facility] [address] [place] [address] Dr. Doreen Betancourt AST [Catalytic activity/Vol] 36 U/L Normal 15-37 [facility] Comment on above: Performed By: #### C VDTBH #### [facility] [address] [place] [address] Dr. Doreen Betancourt Bilirubin [Mass/Vol] 0.5 mg/dL Normal 0.2-1.0 [facility] Comment on above: Performed By: #### C VDTBH #### [facility] [address] [place] [address] Dr. Doreen Betancourt Calcium [Mass/Vol] 9.6 mg/dL Normal 8.5-10.1 [facility] Comment on above: Performed By: #### C VDTBH #### [facility] [address] [place] [address] Dr. Doreen Betancourt Chloride [Moles/Vol] 104 mmol/L Normal 98-107 [facility] Comment on above: Performed By: #### C VDTBH #### [facility] [facility] [address] [place] [address] Dr. Doreen Betancourt CO2 [Moles/Vol] 29.8 mmol/L Normal 21.0-32.0 [facility] Comment on above: Performed By: #### C VDTBH #### [facility] [address] [place] [address] Dr. Doreen Betancourt Creatinine [Mass/Vol] 0.62 mg/dL Normal 0.55-1.02 [facility] Comment on above: Performed By: #### C VDTBH #### [facility] [address] [place] [address] Dr. Doreen Betancourt EGFR-AF DANISH >60 Normal >=60 [facility] Comment on above: Performed By: #### C VDTBH #### [facility] [address] [place] [address] Dr. Doreen Betancourt EGFR-NON AF DANISH >60 Normal >=60 [facility] Comment on above: Performed By: #### C VDTBH #### [facility] [address] [address] [address] Doreen Betancourt Globulin (S) [Mass/Vol] 3.4 g/dL Normal [facility] Comment on above: Performed By: #### C VDTBH #### [facility] [address] [address] [address] Doreen Betancourt Glucose [Mass/Vol] 115 mg/dL Critically high 74-106 T [facility] Comment on above: Performed By: #### C VDTBH #### [facility] [address] [address] [address] Doreen Betancourt Potassium [Moles/Vol] 4.8 mmol/L Normal 3.5-5.1 [facility] Comment on above: Performed By: #### C VDTBH #### [facility] [address] [address] [address] Doreen Betancourt Protein [Mass/Vol] 7.1 g/dL Normal 6.4-8.2 [facility] Comment on above: Performed By: #### C VDTBH #### [facility] [address] [address] [address] Doreen Betancourt Sodium [Moles/Vol] 140 mmol/L Normal 136-145 [facility] Comment on above: Performed By: #### C VDTBH #### [facility] [address] [address] [address] Doreen Betancourt Urea nitrogen [Mass/Vol] 14.0 mg/dL Normal 7.0-18.0 [facility] Comment on above: Performed By: #### C VDTBH #### [facility] [address] [address] [address] Doreen Betancourt Urea nitrogen/Creatinine [Mass ratio] 22.6 mg/mg Normal [facility] Comment on above: Performed By: #### C VDTBH #### [facility] [address] [address] [address] Doreen Betancourt HEP B SURFACE ANTIGEN SCREEN on 09-03-2022 HBsAg Screen Negative Normal Negative [facility] Comment on above: Performed By: #### C VDTBH #### [facility] [address] [place] [address] Dr. Doreen Betancourt HEPATITIS B SURFACE ANTIBODY , QUANTon 09-03-2022 Hepatitis B Surf AB Quant 46.7 mIU/mL Normal Immunity>9 .9 [facility] Comment on above: Result Comment: Stat us of Immunity Anti-HBs Level Inconsistent with Immunity 0.0 - 9.9 Consistent with Immunity >9.9 Performed By: #### Gay G, CMP #### [facility] [address] [place] [address] Dr. Doreen Betancourt HEPATITIS C ANTIBODYon 09-03 Hep C Virus Ab Non-Reactive Normal Non Reactive [facility] Comment on above: Result Comment: HCV antibody alone does not differentiate between previously resolved infection and active infection. Equivocal and Reactive HCV antibody results should be followed up with an HCV RNA test to support the diagnosis of active HCV infection. Performed By: #### C VDTBH #### [facility] [address] [place] [address] Dr. Doreen Betancourt RPR QUANTon 09-03-2022 Rapid Plasma Reagin, Quant Non-Reactive Normal NonRea<1:1 [facility] Comment on above: Result Comment: Plea se Note: This test does not meet current guidelines for screening and diagnosis of syphilis. This test is intended for following treatment response in patients being treated for syphilis infection. To screen for syphilis infection, a reflex cascade that includes both RPR and a treponema-specific assay should be utilized, such as Treponema pallidum (Syphilis) Screening [place] (714042) or Rapid Plasma Reagin (RPR) Test With Reflex to Quantitative RPR and Confirmatory Treponema pallidum Antibodies (294433). Performed By: #### Gay G, CMP #### [facility] [address] [place] [address] [id number] [address] Doreen Betancourt HIV 1/2 RAPID (EXPOSURE ONLY )on 09-01-2022 HIV AB Non-Reactive Normal NON-REACTI VE [facility] Comment on above: Performed By: #### M G, CMP #### [facility] [address] [place] [address] Dr. Doreen Betancourt HIV AG Non-Reactive Normal NON-REACTI VE [facility] Comment on above: Performed By: #### M G, CMP #### [facility] [address] [place] [address] Dr. Doreen Betancourt INTERNAL CONTROLS Within Normal Limits Normal Wi thin Normal Limits [facility] Comment on above: Performed By: #### M G, CMP #### [facility] [address] [place] [address] Dr. Doreen Betancourt RAPID HIV INFO SEE BELOW Normal [facility] Comment on above: Result Comment: This test is used for the initial screening of the exposure source. Confirmation of all reactive results will be obtained through reference lab testing. Performed By: #### M G, CMP #### [facility] [address] [place] [address] Dr. Doreen Betancourt CBC AUTO DIFFon 08-31-2022 BASO # 0.0 103/ul Normal 0.0-0.1 [facility] Comment on above: Performed By: #### M G, CMP #### [facility] [address] [place] [address] Dr. Doreen Betancourt Basophils/100 WBC (Bld) 0.7 % Normal 0.2-2.0 [facility] Comment on above: Performed By: #### M G, CMP #### [facility] [address] [place] [address] Dr. Doreen Betancourt EO # 0.0 103/ul Normal 0.0-0.7 [facility] Comment on above: Performed By: #### M G, CMP #### [facility] [address] [place] [address] Dr. Doreen Betancourt Eosinophils/100 WBC (Bld) 0.7 % Critically low 0.9-7.0 [facility] Comment on above: Performed By: #### M G, CMP #### [facility] [address] [place] [address] Dr. Doreen Betancourt Erythrocyte distribution width (RBC) [Ratio] 18.2 % Critically high 11.0-15.0 [facility] Comment on above: Performed By: #### M Salena, CMP #### [facility] [address] [place] [address] Dr. Doreen Betancourt Hematocrit (Bld) [Volume fraction] 37.8 % Normal 36.0-48.0 [facility] Comment on above: Performed By: #### M G, CMP #### [facility] [address] [place] [address] Dr. Doreen Betancourt Hemoglobin (Bld) [Mass/Vol] 12.3 g/dL Normal 12.0-16.0 [facility] Comment on above: Performed By: #### M Salena, CMP #### [facility] [address] [place] [address] Dr. Doreen Betancourt IG # 0.01 10e3/ul Normal 0.00-0.03 [facility] Comment on above: Performed By: #### Gay Martino, CMP #### [facility] [address] [place] [address] Dr. Doreen Betancourt IG % 0.3 % Normal 0.0-0.5 [facility] Comment on above: Performed By: #### M Salena, CMP #### [facility] [address] [place] [address] Dr. Doreen Betancourt LYMPH # 1.5 103/ul Normal 1.2-3.8 [facility] Comment on above: Performed By: #### Gay Martino, CMP #### [facility] [address] [place] [address] Dr. Doreen Betancourt Lymphocytes/100 WBC (Bld) 49.5 % Normal 20.5-60.0 [facility] Comment on above: Performed By: #### M G, CMP #### [facility] [address] [place] [address] Dr. Doreen Betancourt MANUAL DIFF REQ NO Normal [facility] Comment on above: Performed By: #### M G, CMP #### [facility] [address] [place] [address] Dr. Doreen Betancourt MCH (RBC) [Entitic mass] 33.3 pg Normal 26.7-34.0 [facility] Comment on above: Performed By: #### M G, CMP #### [facility] [address] [place] [address] Dr. Doreen Betancourt MCHC (RBC) [Mass/Vol] 32.5 g/dL Normal 29.9-35.2 [facility] Comment on above: Performed By: #### M G, CMP #### [facility] [address] [place] [address] Dr. Doreen Betancourt MCV (RBC) [Entitic vol] 102.4 fL Critically high 81.0-99.0 [facility] Comment on above: Performed By: #### M G, CMP #### [facility] [address] [place] [address] Dr. Doreen Betancourt MONO # 0.5 103/ul Normal 0.3-0.8 [facility] Comment on above: Performed By: #### M G, CMP #### [facility] [address] [place] [address] Dr. Doreen Betancourt Monocytes/100 WBC (Bld) 14.7 % Critically high 1.7-12.0 [facility] Comment on above: Performed By: #### M G, CMP #### [facility] [address] [place] [address] Dr. Doreen Betancourt NEUT # 1.1 103/ul Critically low 1.4-6.5 [facility] Comment on above: Performed By: #### M G, CMP #### [facility] [address] [place] [address] Dr. Doreen Betancourt Neutrophils/100 WBC (Bld) 34.1 % Critically low 43.0-75.0 [facility] Comment on above: Performed By: #### M G, CMP #### [facility] [address] [place] [address] Dr. Doreen Betancourt Platelet mean volume (Bld) [Entitic vol] 11.1 fL Normal 9.5-13.5 [facility] Comment on above: Performed By: #### M G, CMP #### [facility] [address] [place] [address] Dr. Doreen Betancourt PLT 117 103/ul Critically low 150-450 [facility] Comment on above: Performed By: #### M G, CMP #### [facility] [address] [place] [address] Dr. Doreen Betancourt RBC 3.69 106/ul Critically low 4.20-5.40 [facility] Comment on above: Performed By: #### M G, CMP #### [facility] [address] [place] [address] Dr. Doreen Betancourt WBC 3.1 103/ul Critically low 4.0-11.0 [facility] Comment on above: Performed By: #### M G, CMP #### [facility] [address] [place] [address] Dr. Doreen Betancourt MAGNESIUMon 08-31-2022 Magnesium [Mass/Vol] 2.0 mg/dL Normal 1.8-2.4 [facility] Comment on above: Performed By: #### Gay Martino, CMP #### [facility] [address] [place] [address] Dr. Doreen Betancourt PROF 14(COMP METB)on 023 Albumin [Mass/Vol] 3.4 g/dL Normal 3.4-5.0 [facility] Comment on above: Performed By: #### M G, CMP #### [facility] [address] [place] [address] Dr. Doreen Betancourt Albumin/Globulin [Mass ratio] 1.0 {ratio} Normal [facility] Comment on above: Performed By: #### Gay G, CMP #### [facility] [address] [place] [address] Dr. Doreen Betancourt ALP [Catalytic activity/Vol] 121 U/L Critically high 46-116 [facility] Comment on above: Performed By: #### M G, CMP #### [facility] [address] [place] [address] Dr. Doreen Betancourt ALT [Catalytic activity/Vol] 52 U/L Normal 14-59 [facility] Comment on above: Performed By: #### Gay Martino, CMP #### [facility] [address] [address] [address] Doreen Betancourt Anion gap [Moles/Vol] 11.5 mmol/L Normal Th e [facility] Comment on above: Performed By: #### M G, CMP #### [facility] [address] [address] [address] Doreen Betancourt AST [Catalytic activity/Vol] 34 U/L Normal 15-37 [facility] Comment on above: Performed By: #### M G, CMP #### [facility] [address] [address] [address] Doreen Betancourt Bilirubin [Mass/Vol] 0.4 mg/dL Normal 0.2-1.0 [facility] Comment on above: Performed By: #### M G, CMP #### [facility] [address] [address] [address] Doreen Betancourt Calcium [Mass/Vol] 9.5 mg/dL Normal 8.5-10.1 [facility] Comment on above: Performed By: #### M G, CMP #### [facility] [address] [address] [address] Doreen Betancourt Chloride [Moles/Vol] 106 mmol/L Normal 98-107 [facility] Comment on above: Performed By: #### M G, CMP #### [facility] [address] [address] [address] Doreen Betancourt CO2 [Moles/Vol] 28.6 mmol/L Normal 21.0-32.0 [facility] Comment on above: Performed By: #### M G, CMP #### [facility] [address] [address] [address] Doreen Betancourt Creatinine [Mass/Vol] 0.60 mg/dL Normal 0.55-1.02 [facility] Comment on above: Performed By: #### M G, CMP #### [facility] [address] [address] [address] Doreen Betancourt EGFR-AF DANISH >60 Normal >=60 [facility] Comment on above: Performed By: #### M G, CMP #### [facility] [address] [address] [address] Doreen Betancourt EGFR-NON AF DANISH >60 Normal >=60 [facility] Comment on above: Performed By: #### M G, CMP #### [facility] [address] [address] [address] Doreen Betancourt Globulin (S) [Mass/Vol] 3.5 g/dL Normal [facility] Comment on above: Performed By: #### M G, CMP #### [facility] [address] [address] [address] Doreen Betancourt Glucose [Mass/Vol] 95 mg/dL Normal 74-106 [facility] Comment on above: Performed By: #### M G, CMP #### [facility] [address] [place] [address] Dr. Doreen Betancourt Potassium [Moles/Vol] 4.1 mmol/L Normal 3.5-5.1 [facility] Comment on above: Performed By: #### M G, CMP #### [facility] [address] [place] [address] Dr. Doreen Betancourt Protein [Mass/Vol] 6.9 g/dL Normal 6.4-8.2 [facility] Comment on above: Performed By: #### M G, CMP #### [facility] [address] [place] [address] Dr. Doreen Betancourt Sodium [Moles/Vol] 142 mmol/L Normal 136-145 [facility] Comment on above: Performed By: #### M G, CMP #### [facility] [address] [place] [address] Dr. Doreen Betancourt Urea nitrogen [Mass/Vol] 13.0 mg/dL Normal 7.0-18.0 [facility] Comment on above: Performed By: #### M G, CMP #### [facility] [address] [place] [address] Dr. Doreen Betancourt Urea nitrogen/Creatinine [Mass ratio] 21.7 mg/mg Normal [facility] Comment on above: Performed By: #### M G, CMP #### [facility] [address] [place] [address] Dr. Doreen Betancourt CBC W MANUAL DIFFon 08-16-19 23 ANISOCYTOSIS SLIGHT Normal [facility] Comment on above: Performed By: #### M G, CMP #### [facility] [address] [place] [address] Dr. Doreen Betancourt ATYPICAL LYMPH # Normal [facility] Comment on above: Performed By: #### M G, CMP #### [facility] [address] [place] [address] Dr. Doreen Betancourt ATYPICAL LYMPH % Normal [facility] Comment on above: Performed By: #### M G, CMP #### [facility] [address] [place] [address] Dr. Doreen Betancourt BAND # Normal 0.0-0.3 [facility] Comment on above: Performed By: #### M G, CMP #### [facility] [address] [place] [address] Dr. Doreen Betancourt BAND % Normal 0-5 [facility] Comment on above: Performed By: #### M G, CMP #### [facility] [address] [place] [address] Dr. Doreen Betancourt BASOM # 0.00 103/ul Normal 0.00-0.10 [facility] Comment on above: Performed By: #### M G, CMP #### [facility] [address] [place] [address] Dr. Doreen Betancourt BASOM % 0.0 % Critically low 0.2-2.0 [facility] Comment on above: Performed By: #### M G, CMP #### [facility] [address] [place] [address] Dr. Doreen Betancourt BLAST # Normal [facility] Comment on above: Performed By: #### M G, CMP #### [facility] [address] [place] [address] Dr. Doreen Betancourt BLAST % Normal [facility] Comment on above: Performed By: #### M G, CMP #### [facility] [address] [place] [address] Dr. Doreen Betancourt CORRECTED WBC Normal 4.0-11.0 [facility] Comment on above: Performed By: #### M G, CMP #### [facility] [address] [place] [address] Dr. Doreen Betancourt EOS # 0.00 103/ul Normal 0.00-0.70 [facility] Comment on above: Performed By: #### M G, CMP #### [facility] [address] [place] [address] Dr. Doreen Betancourt EOS% 0.0 % Critically low 0.9-7.0 [facility] Comment on above: Performed By: #### M G, CMP #### [facility] [address] [place] [address] Dr. Doreen Betancourt HCT 36.2 % Normal 36.0-48.0 [facility] Comment on above: Performed By: #### M G, CMP #### [facility] [address] [place] [address] Dr. Doreen Betancourt HGB 12.1 g/dl Normal 12.0-16.0 [facility] Comment on above: Performed By: #### M G, CMP #### [facility] [address] [place] [address] Dr. Doreen Betancourt LYMPHM # 2.08 103/ul Normal 1.20-3.80 [facility] Comment on above: Performed By: #### M G, CMP #### [facility] [address] [place] [address] Dr. Doreen Betancourt LYMPHM% 63.0 % Critically high 20.5-60.0 [facility] Comment on above: Performed By: #### M G, CMP #### [facility] [address] [place] [address] Dr. Doreen Betancourt MCH 33.0 pg Normal 26.7-34.0 [facility] Comment on above: Performed By: #### M G, CMP #### [facility] [address] [place] [address] Dr. Doreen Betancourt MCHC 33.4 g/dl Normal 29.9-35.2 [facility] Comment on above: Performed By: #### M G, CMP #### [facility] [address] [address] [address] Doreen Betancourt MCV 98.6 fL Normal 81.0-99.0 [facility] Comment on above: Performed By: #### M G, CMP #### [facility] [address] [place] [address] Dr. Doreen Betancourt METAMYELOCYTE # Normal [facility] Comment on above: Performed By: #### M G, CMP #### [facility] [address] [place] [address] Dr. Doreen Betancourt METAMYELOCYTE % Normal [facility] Comment on above: Performed By: #### M G, CMP #### [facility] [address] [place] [address] Dr. Doreen Betancourt MONOM# 0.33 103/ul Normal 0.30-0.80 [facility] Comment on above: Performed By: #### M G, CMP #### [facility] [address] [place] [address] Dr. Doreen Betancourt MONOM% 10.0 % Normal 1.7-12.0 [facility] Comment on above: Performed By: #### M G, CMP #### [facility] [address] [place] [address] Dr. Doreen Betancourt MPV 10.4 fL Normal 9.5-13.5 [facility] Comment on above: Performed By: #### M G, CMP #### [facility] [address] [place] [address] Dr. Doreen Betancourt MYELOCYTE # Normal [facility] Comment on above: Performed By: #### M G, CMP #### [facility] [address] [place] [address] Dr. Doreen Betancourt MYELOCYTE % Normal [facility] Comment on above: Performed By: #### M G, CMP #### [facility] [address] [place] [address] Dr. Doreen Betancourt NRBC Normal [facility] Comment on above: Performed By: #### M G, CMP #### [facility] [address] [address] [address] Doreen Betancourt PLT 92 103/ul Critically low 150-450 [facility] Comment on above: Performed By: #### M G, CMP #### [facility] [address] [place] [address] Dr. Doreen Betancourt RBC 3.67 106/ul Critically low 4.20-5.40 [facility] Comment on above: Performed By: #### M G, CMP #### [facility] [address] [place] [address] Dr. Doreen Betancourt RDW 17.8 % Critically high 11.0-15.0 [facility] Comment on above: Performed By: #### M G, CMP #### [facility] [address] [place] [address] Dr. Doreen Betancourt SEG # 0.89 103/ul Critically low 1.40-6.50 [facility] Comment on above: Performed By: #### M G, CMP #### [facility] [address] [place] [address] Dr. Doreen Betancourt SEG % 27.0 % Critically low 43.0-75.0 [facility] Comment on above: Performed By: #### M G, CMP #### [facility] [address] [place] [address] Dr. Doreen Betancourt WBC 3.3 103/ul Critically low 4.0-11.0 [facility] Comment on above: Performed By: #### M G, CMP #### [facility] [address] [place] [address] Dr. Doreen Betancourt MAGNESIUMon 08-16-2022 Magnesium [Mass/Vol] 2.1 mg/dL Normal 1.8-2.4 [facility] Comment on above: Performed By: #### C BC #### [facility] [address] [place] [address] Dr. Doreen Betancourt PROF 14(COMP METB)on 023 Albumin [Mass/Vol] 3.5 g/dL Normal 3.4-5.0 [facility] Comment on above: Performed By: #### C BC #### [facility] [address] [place] [address] Dr. Doreen Betancourt Albumin/Globulin [Mass ratio] 1.0 {ratio} Normal [facility] Comment on above: Performed By: #### C BC #### [facility] [address] [place] [address] Dr. Doreen Betancourt ALP [Catalytic activity/Vol] 131 U/L Critically high 46-116 [facility] Comment on above: Performed By: #### C BC #### [facility] [address] [place] [address] Dr. Doreen Betancourt ALT [Catalytic activity/Vol] 98 U/L Critically high 14-59 [facility] Comment on above: Performed By: #### C BC #### [facility] [address] [place] [address] Dr. Doreen Betancourt Anion gap [Moles/Vol] 12.3 mmol/L Normal [facility] Comment on above: Performed By: #### C BC #### [facility] [address] [place] [address] Dr. Doreen Betancourt AST [Catalytic activity/Vol] 78 U/L Critically high 15-37 [facility] Comment on above: Performed By: #### C BC #### [facility] [address] [place] [address] Dr. Doreen Betancourt Bilirubin [Mass/Vol] 0.3 mg/dL Normal 0.2-1.0 [facility] Comment on above: Performed By: #### C BC #### [facility] [address] [place] [address] Dr. Doreen Betancourt Calcium [Mass/Vol] 9.3 mg/dL Normal 8.5-10.1 [facility] Comment on above: Performed By: #### C BC #### [facility] [address] [place] [address] Dr. Doreen Betancourt Chloride [Moles/Vol] 104 mmol/L Normal 98-107 [facility] Comment on above: Performed By: #### C BC #### [facility] [address] [place] [address] Dr. Doreen Betancourt CO2 [Moles/Vol] 29.4 mmol/L Normal 21.0-32.0 [facility] Comment on above: Performed By: #### C BC #### [facility] [address] [place] [address] Dr. Doreen Betancourt Creatinine [Mass/Vol] 0.67 mg/dL Normal 0.55-1.02 [facility] Comment on above: Performed By: #### C BC #### [facility] [address] [place] [address] Dr. Doreen Betancourt EGFR-AF DANISH >60 Normal >=60 [facility] Comment on above: Performed By: #### C BC #### [facility] [address] [place] [address] Dr. Doreen Betancourt EGFR-NON AF DANISH >60 Normal >=60 [facility] Comment on above: Performed By: #### C BC #### [facility] [address] [place] [address] Dr. Doreen Betancourt Globulin (S) [Mass/Vol] 3.5 g/dL Normal [facility] Comment on above: Performed By: #### C BC #### [facility] [address] [place] [address] Dr. Doreen Betancourt Glucose [Mass/Vol] 100 mg/dL Normal 74-106 [facility] Comment on above: Performed By: #### C BC #### [facility] [address] [place] [address] Dr. Doreen Betancourt Potassium [Moles/Vol] 4.7 mmol/L Normal 3.5-5.1 [facility] Comment on above: Performed By: #### C BC #### [facility] [address] [place] [address] Dr. Doreen Betancourt Protein [Mass/Vol] 7.0 g/dL Normal 6.4-8.2 [facility] Comment on above: Performed By: #### C BC #### [facility] [address] [place] [address] Dr. Doreen Betancourt Sodium [Moles/Vol] 141 mmol/L Normal 136-145 [facility] Comment on above: Performed By: #### C BC #### [facility] [address] [place] [address] Dr. Doreen Betancourt Urea nitrogen [Mass/Vol] 13.0 mg/dL Normal 7.0-18.0 [facility] Comment on above: Performed By: #### C BC #### [facility] [address] [place] [address] Dr. Doreen Betancourt Urea nitrogen/Creatinine [Mass ratio] 19.4 mg/mg Normal [facility] Comment on above: Performed By: #### C BC #### [facility] [address] [place] [address] Dr. Doreen Betancourt CBC AUTO DIFFon 08-03-2022 BASO # 0.0 103/ul Normal 0.0-0.1 [facility] Comment on above: Performed By: #### M G, CMP #### [facility] [address] [place] [address] Dr. Doreen Betancourt Basophils/100 WBC (Bld) 0.6 % Normal 0.2-2.0 [facility] Comment on above: Performed By: #### M G, CMP #### [facility] [address] [place] [address] Dr. Doreen Betancourt EO # 0.0 103/ul Normal 0.0-0.7 [facility] Comment on above: Performed By: #### M G, CMP #### [facility] [address] [place] [address] Dr. Doreen Betancourt Eosinophils/100 WBC (Bld) 0.6 % Critically low 0.9-7.0 [facility] Comment on above: Performed By: #### M G, CMP #### [facility] [address] [place] [address] Dr. Doreen Betancourt Erythrocyte distribution width (RBC) [Ratio] 17.8 % Critically high 11.0-15.0 [facility] Comment on above: Performed By: #### M G, CMP #### [facility] [address] [place] [address] Dr. Doreen Betancourt Hematocrit (Bld) [Volume fraction] 36.1 % Normal 36.0-48.0 [facility] Comment on above: Performed By: #### M Salena, CMP #### [facility] [address] [place] [address] Dr. Doreen Betancourt Hemoglobin (Bld) [Mass/Vol] 12.6 g/dL Normal 12.0-16.0 [facility] Comment on above: Performed By: #### M G, CMP #### [facility] [address] [place] [address] Dr. Doreen Betancourt IG # 0.01 10e3/ul Normal 0.00-0.03 [facility] Comment on above: Performed By: #### M G, CMP #### [facility] [address] [place] [address] Dr. Doreen Betancourt IG % 0.3 % Normal 0.0-0.5 [facility] Comment on above: Performed By: #### M Salena, CMP #### [facility] [address] [place] [address] Dr. Doreen Betancourt LYMPH # 1.6 103/ul Normal 1.2-3.8 [facility] Comment on above: Performed By: #### Gay Martino, CMP #### [facility] [address] [place] [address] Dr. Doreen Betancourt Lymphocytes/100 WBC (Bld) 46.4 % Normal 20.5-60.0 [facility] Comment on above: Performed By: #### Gay Salena, CMP #### [facility] [address] [place] [address] Dr. Doreen Betancourt MANUAL DIFF REQ NO Normal [facility] Comment on above: Performed By: #### M G, CMP #### [facility] [address] [place] [address] Dr. Doreen Betancourt MCH (RBC) [Entitic mass] 32.1 pg Normal 26.7-34.0 [facility] Comment on above: Performed By: #### M G, CMP #### [facility] [address] [place] [address] Dr. Doreen Betancourt MCHC (RBC) [Mass/Vol] 34.9 g/dL Normal 29.9-35.2 [facility] Comment on above: Performed By: #### M G, CMP #### [facility] [address] [place] [address] Dr. Doreen Betancourt MCV (RBC) [Entitic vol] 91.9 fL Normal 81.0-99.0 [facility] Comment on above: Performed By: #### M G, CMP #### [facility] [address] [place] [address] Dr. Doreen Betancourt MONO # 0.3 103/ul Normal 0.3-0.8 [facility] Comment on above: Performed By: #### M G, CMP #### [facility] [address] [place] [address] Dr. Doreen Betancourt Monocytes/100 WBC (Bld) 9.7 % Normal 1.7-12.0 [facility] Comment on above: Performed By: #### M G, CMP #### [facility] [address] [place] [address] Dr. Doreen Betancourt NEUT # 1.5 103/ul Normal 1.4-6.5 [facility] Comment on above: Performed By: #### M G, CMP #### [facility] [address] [place] [address] Dr. Doreen Betancourt Neutrophils/100 WBC (Bld) 42.4 % Critically low 43.0-75.0 [facility] Comment on above: Performed By: #### M G, CMP #### [facility] [address] [place] [address] Dr. Doreen Betancourt Platelet mean volume (Bld) [Entitic vol] 11.1 fL Normal 9.5-13.5 [facility] Comment on above: Performed By: #### M G, CMP #### [facility] [address] [place] [address] Dr. Doreen Betancourt PLT 101 103/ul Critically low 150-450 [facility] Comment on above: Performed By: #### M G, CMP #### [facility] [address] [place] [address] Dr. Doreen Betancourt RBC 3.93 106/ul Critically low 4.20-5.40 [facility] Comment on above: Performed By: #### M G, CMP #### [facility] [address] [place] [address] Dr. Doreen Betancourt WBC 3.5 103/ul Critically low 4.0-11.0 [facility] Comment on above: Performed By: #### M G, CMP #### [facility] [address] [place] [address] Dr. Doreen Betancourt MAGNESIUMon 08-03-2022 Magnesium [Mass/Vol] 2.0 mg/dL Normal 1.8-2.4 [facility] Comment on above: Performed By: #### C MP, MG #### [facility] [address] [place] [address] Dr. Doreen Betancourt PROF 14(COMP METB)on 023 Albumin [Mass/Vol] 3.6 g/dL Normal 3.4-5.0 [facility] Comment on above: Performed By: #### C MP, MG #### [facility] [address] [place] [address] Dr. Doreen Betancourt Albumin/Globulin [Mass ratio] 1.0 {ratio} Normal [facility] Comment on above: Performed By: #### C MP, MG #### [facility] [address] [place] [address] Dr. Doreen Betancourt ALP [Catalytic activity/Vol] 120 U/L Critically high 46-116 [facility] Comment on above: Performed By: #### C MP, MG #### [facility] [address] [place] [address] Dr. Doreen Betancourt ALT [Catalytic activity/Vol] 80 U/L Critically high 14-59 [facility] Comment on above: Performed By: #### C MP, MG #### [facility] [address] [place] [address] Dr. Doreen Betancourt Anion gap [Moles/Vol] 10.7 mmol/L Normal [facility] Comment on above: Performed By: #### C MP, MG #### [facility] [address] [place] [address] Dr. Doreen Betancourt AST [Catalytic activity/Vol] 62 U/L Critically high 15-37 [facility] Comment on above: Performed By: #### C MP, MG #### [facility] [address] [place] [address] Dr. Doreen Betancourt Bilirubin [Mass/Vol] 0.4 mg/dL Normal 0.2-1.0 [facility] Comment on above: Performed By: #### C MP, MG #### [facility] [address] [place] [address] Dr. Doreen Betancourt Calcium [Mass/Vol] 9.6 mg/dL Normal 8.5-10.1 [facility] Comment on above: Performed By: #### C MP, MG #### [facility] [address] [place] [address] Dr. Doreen Betancourt Chloride [Moles/Vol] 106 mmol/L Normal 98-107 [facility] Comment on above: Performed By: #### C MP, MG #### [facility] [address] [place] [address] Dr. Doreen Betancourt CO2 [Moles/Vol] 29.5 mmol/L Normal 21.0-32.0 [facility] Comment on above: Performed By: #### C MP, MG #### [facility] [address] [place] [address] Dr. Doreen Betancourt Creatinine [Mass/Vol] 0.67 mg/dL Normal 0.55-1.02 [facility] Comment on above: Performed By: #### C MP, MG #### [facility] [address] [place] [address] Dr. Doreen Betancourt EGFR-AF DANISH >60 Normal >=60 [facility] Comment on above: Performed By: #### C MP, MG #### [facility] [address] [place] [address] Dr. Doreen Betancourt EGFR-NON AF DANISH >60 Normal >=60 [facility] Comment on above: Performed By: #### C MP, MG #### [facility] [address] [address] [address] Doreen Betancourt Globulin (S) [Mass/Vol] 3.5 g/dL Normal [facility] Comment on above: Performed By: #### C MP, MG #### [facility] [address] [place] [address] Dr. Doreen Betancourt Glucose [Mass/Vol] 128 mg/dL Critically high 74-106 [facility] Comment on above: Performed By: #### C MP, MG #### [facility] [address] [place] [address] Dr. Doreen Betancourt Potassium [Moles/Vol] 4.2 mmol/L Normal 3.5-5.1 [facility] Comment on above: Performed By: #### C MP, MG #### [facility] [address] [place] [address] Dr. Doreen Betancourt Protein [Mass/Vol] 7.1 g/dL Normal 6.4-8.2 [facility] Comment on above: Performed By: #### C MP, MG #### [facility] [address] [place] [address] Dr. Doreen Betancourt Sodium [Moles/Vol] 142 mmol/L Normal 136-145 [facility] Comment on above: Performed By: #### C MP, MG #### [facility] [address] [place] [address] Dr. Doreen Betancourt Urea nitrogen [Mass/Vol] 12.0 mg/dL Normal 7.0-18.0 [facility] Comment on above: Performed By: #### C MP, MG #### [facility] [address] [place] [address] Dr. Doreen Betancourt Urea nitrogen/Creatinine [Mass ratio] 17.9 mg/mg Normal [facility] Comment on above: Performed By: #### C MP, MG #### [facility] [address] [place] [address] Dr. Doreen Betancourt CEAon 07-21-2022 CEA 8.1 ng/mL Critically high 0.0-4.7 [facility] Comment on above: Result Comment: Nons mokers <3.9 Smokers <5.6 . [employer] Electrochemiluminescence Immunoassay (ECLIA) . Values obtained with different assay methods or kits cannot be used interchangeably. Results cannot be interpreted as absolute evidence of the presence or absence of malignant disease. Performed By: #### C VDTBH #### [facility] [address] [place] [address] Dr. Doreen Betancourt CBC AUTO DIFFon 07-20-2022 BASO # 0.0 103/ul Normal 0.0-0.1 [facility] Comment on above: Performed By: #### C VDTBH #### [facility] [address] [place] [address] Dr. Doreen Betancourt Basophils/100 WBC (Bld) 0.9 % Normal 0.2-2.0 [facility] Comment on above: Performed By: #### C VDTBH #### [facility] [address] [place] [address] Dr. Doreen Betancourt EO # 0.0 103/ul Normal 0.0-0.7 [facility] Comment on above: Performed By: #### C VDTBH #### [facility] [address] [place] [address] Dr. Doreen Betancourt Eosinophils/100 WBC (Bld) 0.6 % Critically low 0.9-7.0 [facility] Comment on above: Performed By: #### C VDTBH #### [facility] [address] [place] [address] Dr. Doreen Betancourt Erythrocyte distribution width (RBC) [Ratio] 17.2 % Critically high 11.0-15.0 [facility] Comment on above: Performed By: #### C VDTBH #### [facility] [address] [place] [address] Dr. Doreen Betancourt Hematocrit (Bld) [Volume fraction] 39.1 % Normal 36.0-48.0 [facility] Comment on above: Performed By: #### C VDTBH #### [facility] [address] [place] [address] Dr. Doreen Betancourt Hemoglobin (Bld) [Mass/Vol] 13.0 g/dL Normal 12.0-16.0 [facility] Comment on above: Performed By: #### C VDTBH #### [facility] [address] [place] [address] Dr. Doreen Betancourt IG # 0.00 10e3/ul Normal 0.00-0.03 [facility] Comment on above: Performed By: #### C VDTBH #### [facility] [address] [place] [address] Dr. Doeren Betancourt IG % 0.0 % Normal 0.0-0.5 [facility] Comment on above: Performed By: #### C VDTBH #### [facility] [address] [place] [address] Dr. Doreen Betancourt LYMPH # 2.0 103/ul Normal 1.2-3.8 [facility] Comment on above: Performed By: #### C VDTBH #### [facility] [address] [place] [address] Dr. Doreen Betancourt Lymphocytes/100 WBC (Bld) 42.1 % Normal 20.5-60.0 [facility] Comment on above: Performed By: #### C VDTBH #### [facility] [address] [place] [address] Dr. Doreen Betancourt MANUAL DIFF REQ NO Normal [facility] Comment on above: Performed By: #### C VDTBH #### [facility] [address] [place] [address] Dr. Doreen Betancourt MCH (RBC) [Entitic mass] 31.1 pg Normal 26.7-34.0 [facility] Comment on above: Performed By: #### C VDTBH #### [facility] [address] [place] [address] Dr. Doreen Betancourt MCHC (RBC) [Mass/Vol] 33.2 g/dL Normal 29.9-35.2 [facility] Comment on above: Performed By: #### C VDTBH #### [facility] [address] [place] [address] Dr. Doreen Betancourt MCV (RBC) [Entitic vol] 93.5 fL Normal 81.0-99.0 [facility] Comment on above: Performed By: #### C VDTBH #### [facility] [address] [place] [address] Dr. Doreen Betancourt MONO # 0.6 103/ul Normal 0.3-0.8 [facility] Comment on above: Performed By: #### C VDTBH #### [facility] [address] [place] [address] Dr. Doreen Betancourt Monocytes/100 WBC (Bld) 13.5 % Critically high 1.7-12.0 [facility] Comment on above: Performed By: #### C VDTBH #### [facility] [address] [place] [address] Dr. Doreen Betancourt NEUT # 2.0 103/ul Normal 1.4-6.5 [facility] Comment on above: Performed By: #### C VDTBH #### [facility] [address] [place] [address] Dr. Doreen Betancourt Neutrophils/100 WBC (Bld) 42.9 % Critically low 43.0-75.0 [facility] Comment on above: Performed By: #### C VDTBH #### [facility] [address] [place] [address] Dr. Doreen Betancourt Platelet mean volume (Bld) [Entitic vol] 10.2 fL Normal 9.5-13.5 [facility] Comment on above: Performed By: #### C VDTBH #### [facility] [address] [place] [address] Dr. Doreen Betancourt PLT 143 103/ul Critically low 150-450 [facility] Comment on above: Performed By: #### C VDTBH #### [facility] [address] [place] [address] Dr. Doreen Betancourt RBC 4.18 106/ul Critically low 4.20-5.40 [facility] Comment on above: Performed By: #### C VDTBH #### [facility] [address] [place] [address] Dr. Doreen Betancourt WBC 4.7 103/ul Normal 4.0-11.0 [facility] Comment on above: Performed By: #### C VDTBH #### [facility] [address] [place] [address] Dr. Doreen Betancourt MAGNESIUMon 07-20-2022 Magnesium [Mass/Vol] 2.2 mg/dL Normal 1.8-2.4 [facility] Comment on above: Performed By: #### M G, CMP #### [facility] [address] [place] [address] Dr. Doreen Betancourt PROF 14(COMP METB)on 023 Albumin [Mass/Vol] 3.8 g/dL Normal 3.4-5.0 [facility] Comment on above: Performed By: #### C BC #### [facility] [address] [place] [address] Dr. Doreen Betancourt Albumin/Globulin [Mass ratio] 1.0 {ratio} Normal [facility] Comment on above: Performed By: #### C BC #### [facility] [address] [place] [address] Dr. Doreen Betancourt ALP [Catalytic activity/Vol] 118 U/L Critically high 46-116 [facility] Comment on above: Performed By: #### C BC #### [facility] [address] [place] [address] Dr. Doreen Betancourt ALT [Catalytic activity/Vol] 57 U/L Normal 14-59 [facility] Comment on above: Performed By: #### C BC #### [facility] [address] [place] [address] Dr. Doreen Betancourt Anion gap [Moles/Vol] 13.4 mmol/L Normal [facility] Comment on above: Performed By: #### C BC #### [facility] [address] [place] [address] Dr. Doreen Betancourt AST [Catalytic activity/Vol] 40 U/L Critically high 15-37 [facility] Comment on above: Performed By: #### C BC #### [facility] [address] [place] [address] Dr. Doreen Betancourt Bilirubin [Mass/Vol] 0.4 mg/dL Normal 0.2-1.0 [facility] Comment on above: Performed By: #### C BC #### [facility] [address] [place] [address] Dr. Doreen Betancourt Calcium [Mass/Vol] 9.7 mg/dL Normal 8.5-10.1 [facility] Comment on above: Performed By: #### C BC #### [facility] [address] [place] [address] Dr. Doreen Betancourt Chloride [Moles/Vol] 103 mmol/L Normal 98-107 [facility] Comment on above: Performed By: #### C BC #### [facility] [address] [place] [address] Dr. Doreen Betancourt CO2 [Moles/Vol] 29.1 mmol/L Normal 21.0-32.0 [facility] Comment on above: Performed By: #### C BC #### [facility] [address] [place] [address] Dr. Doreen Betancourt Creatinine [Mass/Vol] 0.71 mg/dL Normal 0.55-1.02 [facility] Comment on above: Performed By: #### C BC #### [facility] [address] [place] [address] Dr. Doreen Betancourt EGFR-AF DANISH >60 Normal >=60 [facility] Comment on above: Performed By: #### C BC #### [facility] [address] [place] [address] Dr. Doreen Betancourt EGFR-NON AF DANISH >60 Normal >=60 [facility] Comment on above: Performed By: #### C BC #### [facility] [address] [place] [address] Dr. Doreen Betancourt Globulin (S) [Mass/Vol] 3.7 g/dL Normal [facility] Comment on above: Performed By: #### C BC #### [facility] [address] [place] [address] Dr. Doreen Betancourt Glucose [Mass/Vol] 106 mg/dL Normal 74-106 [facility] Comment on above: Performed By: #### C BC #### [facility] [address] [place], [place] [address] Dr. Doreen Betancourt Potassium [Moles/Vol] 4.5 mmol/L Normal 3.5-5.1 [facility] Comment on above: Performed By: #### C BC #### [facility] [address] [place], [place] [address] Dr. Doreen Betancourt Protein [Mass/Vol] 7.5 g/dL Normal 6.4-8.2 [facility] Comment on above: Performed By: #### C BC #### [facility] [address] [place], [place] [address] Dr. Doreen Betancourt Sodium [Moles/Vol] 141 mmol/L Normal 136-145 [facility] Comment on above: Performed By: #### C BC #### [facility] [address] [place], [place] [address] Dr. Doreen Betancourt Urea nitrogen [Mass/Vol] 15.0 mg/dL Normal 7.0-18.0 [facility] Comment on above: Performed By: #### C BC #### [facility] [address] [place], [place] [address] Dr. Doreen Betancourt Urea nitrogen/Creatinine [Mass ratio] 21.1 mg/mg Normal [facility] Comment on above: Performed By: #### C BC #### [facility] [address] [place], [place] [address] Dr. Doreen Betancourt Albumin [Mass/volume] in Ser um or PlasmaOrdered By: Isaías Jordan on 07-11-2022 Albumin [Mass/Vol] 3.8 g/dL 3.2-5.5 [facility] Creatinine and Glomerular fi ltration rate.predicted panel (S/P/Bld)Ordered By: Isaías Jordan on 07-11-2022 Creatinine [Mass/Vol] 0.64 mg/dL 0.44-1.03 [facility] Estimated glomerular filtrat ion rate (GFR) non- AmericanOrdered By: Isaías Jordan on 07-11-2022 GFR/1.73 sq M.predicted among non-blacks MDRD (S/P/Bld) [Vol rate/Area] > 60 mL/Min [facility] GFR/1.73 sq M.predicted among non-blacks MDRD (S/P/Bld) [Vol rate/Area] Estimated glomerular filtration rate (GFR) non- [facility] Globulin Calc (S) [Mass/Vol] Ordered By: Isaías Jordan on 07-11-2022 Globulin (S) [Mass/Vol] 2.8 g/dL [facility] Laboratory - Chemistry and C hemistry - challengeOrdered By: Isaías Jordan on 07-11-2022 Magnesium [Mass/Vol] 2.2 mg/dL 1.6-2.6 [facility] No Panel InformationOrdered By: Isaías Jordan on 07-11-2022 Estimated GFR () > 60 mL/Min [facility] Comment on above: GFR estimated refere nce range: According to KDOQI guidelines, <60 ml/min/1.73m2 is sufficient to diagnose a patient with chronic kidney disease. Pharmacy Creatinine Clearance (Chem 97.34 [facility] Protein [Mass/volume] in Ser um or PlasmaOrdered By: Isaías Jordan on 07-11-2022 Protein [Mass/Vol] 6.6 g/dL 6.1-7.9 [facility] Serum or plasma alanine villalpando otransferase measurement without P-5'-P (enzymatic activiOrdered By: Isaías Jordan on 07-11-2022 ALT No additional P-5'-P [Catalytic activity/Vol] 71 U/L 10-60 [facility] Serum or plasma albumin/glob ulin mass ratioOrdered By: Isaías Jordan on 07-11-2022 Albumin/Globulin [Mass ratio] 1.4 {ratio} [facility] Serum or plasma alkaline joselito sphatase measurement (enzymatic activity/volume)Ordered By: Isaías Jordan on 07-11-2022 ALP [Catalytic activity/Vol] 72 U/L 32-92 [facility] Serum or plasma anion gap de terminationOrdered By: Isaías Jordan on 07-11-2022 Anion gap [Moles/Vol] 9.7 mmol/L 6.0-15.0 [facility] Serum or plasma aspartate am inotransferase measurement (enzymatic activity/volume)Ordered By: Isaías Jordan on 07-11-2022 AST [Catalytic activity/Vol] 56 U/L 10-42 [facility] Serum or plasma calcium idalmis urement (mass/volume)Ordered By: Isaías Jordan on 07-11-2022 Calcium [Mass/Vol] 9.1 mg/dL 8.2-10.2 [facility] Serum or plasma chloride jose surement (moles/volume)Ordered By: Isaías Jordan on 07-11-2022 Chloride [Moles/Vol] 103 mmol/L 95-114 [facility] Serum or plasma glucose idalmis urement (mass/volume)Ordered By: Isaías Jordan on 07-11-2022 Glucose [Mass/Vol] 81 mg/dL 70-100 [facility] Comment on above: ADA recommended refe rence rangeRandom Glucose Reference Range is dependent on time and content of last meal. Glucose of more than 200 mg/dL in a nonstressed, ambulatory subject supports the diagnosis of Diabetes Mellitus. Serum or plasma potassium me asurement (moles/volume)Ordered By: Isaías Jordan on 07-11-2022 Potassium [Moles/Vol] 4.1 mmol/L 3.5-5.1 [facility] Serum or plasma sodium measu rement (moles/volume)Ordered By: Isaías Jordan on 07-11-2022 Sodium [Moles/Vol] 134 mmol/L 136-146 [facility] Serum or plasma total biliru bin measurement (mass/volume)Ordered By: Isaías Jordan on 07-11-2022 Bilirubin [Mass/Vol] 0.8 mg/dL 0.3-1.2 [facility] Serum or plasma total carbon dioxide measurement (moles/volume)Ordered By: Isaías Jordan on 07-11-2022 CO2 [Moles/Vol] 25.4 mmol/L 22.0-30.0 [facility] Serum or plasma urea nitroge n measurement (mass/volume)Ordered By: Isaías Jordan on 07-11-2022 Urea nitrogen [Mass/Vol] 14 mg/dL 9-23 [facility] Albumin [Mass/volume] in Ser um or PlasmaOrdered By: Isaías Jordan on 07-06-2022 Albumin [Mass/Vol] 4.2 g/dL 3.2-5.5 [facility] CBC AUTO DIFFon 07-06-2022 BASO # 0.0 103/ul Normal 0.0-0.1 [facility] Comment on above: Performed By: #### M G, CMP #### [facility] [address] [place] [address] Dr. Doreen Betancourt Basophils/100 WBC (Bld) 0.7 % Normal 0.2-2.0 [facility] Comment on above: Performed By: #### M G, CMP #### [facility] [address] [place] [address] Dr. Doreen Betancourt EO # 0.1 103/ul Normal 0.0-0.7 [facility] Comment on above: Performed By: #### M G, CMP #### [facility] [address] [place] [address] Dr. Doreen Betancourt Eosinophils/100 WBC (Bld) 1.1 % Normal 0.9-7.0 [facility] Comment on above: Performed By: #### M G, CMP #### [facility] [address] [place] [address] Dr. Doreen Betancourt Erythrocyte distribution width (RBC) [Ratio] 16.9 % Critically high 11.0-15.0 [facility] Comment on above: Performed By: #### M G, CMP #### [facility] [address] [place] [address] Dr. Doreen Betancourt Hematocrit (Bld) [Volume fraction] 38.9 % Normal 36.0-48.0 [facility] Comment on above: Performed By: #### M G, CMP #### [facility] [address] [place] [address] Dr. Doreen Betancourt Hemoglobin (Bld) [Mass/Vol] 14.2 g/dL Normal 12.0-16.0 [facility] Comment on above: Performed By: #### M G, CMP #### [facility] [address] [place] [address] Dr. Doreen Betancourt IG # 0.01 10e3/ul Normal 0.00-0.03 [facility] Comment on above: Performed By: #### M G, CMP #### [facility] [address] [place] [address] Dr. Doreen Betancourt IG % 0.2 % Normal 0.0-0.5 [facility] Comment on above: Performed By: #### M G, CMP #### [facility] [address] [place] [address] Dr. Doreen Betancourt LYMPH # 2.0 103/ul Normal 1.2-3.8 [facility] Comment on above: Performed By: #### M G, CMP #### [facility] [address] [place] [address] Dr. Doreen Betancourt Lymphocytes/100 WBC (Bld) 43.2 % Normal 20.5-60.0 [facility] Comment on above: Performed By: #### M G, CMP #### [facility] [address] [place] [address] Dr. Doreen Betancourt MANUAL DIFF REQ NO Normal [facility] Comment on above: Performed By: #### M G, CMP #### [facility] [address] [place] [address] Dr. Doreen Betancourt MCH (RBC) [Entitic mass] 34.5 pg Critically high 26.7-34.0 [facility] Comment on above: Performed By: #### M G, CMP #### [facility] [address] [place] [address] Dr. Doreen Betancourt MCHC (RBC) [Mass/Vol] 36.5 g/dL Critically high 29.9-35.2 [facility] Comment on above: Performed By: #### M G, CMP #### [facility] [address] [place] [address] Dr. Doreen Betancourt MCV (RBC) [Entitic vol] 94.6 fL Normal 81.0-99.0 [facility] Comment on above: Performed By: #### M G, CMP #### [facility] [address] [address] [address] Doreen Betancourt MONO # 0.4 103/ul Normal 0.3-0.8 [facility] Comment on above: Performed By: #### M G, CMP #### [facility] [address] [place] [address] Dr. Doreen Betancourt Monocytes/100 WBC (Bld) 9.6 % Normal 1.7-12.0 [facility] Comment on above: Performed By: #### M G, CMP #### [facility] [address] [place] [address] Dr. Doreen Betancourt NEUT # 2.1 103/ul Normal 1.4-6.5 [facility] Comment on above: Performed By: #### M G, CMP #### [facility] [address] [place] [address] Dr. Doreen Betancourt Neutrophils/100 WBC (Bld) 45.2 % Normal 43.0-75.0 [facility] Comment on above: Performed By: #### M G, CMP #### [facility] [address] [place] [address] Dr. Doreen Betancourt Platelet mean volume (Bld) [Entitic vol] 9.8 fL Normal 9.5-13.5 [facility] Comment on above: Performed By: #### M G, CMP #### [facility] [address] [place] [address] Dr. Doreen Betancourt PLT 155 103/ul Normal 150-450 [facility] Comment on above: Performed By: #### M G, CMP #### [facility] [address] [place] [address] Dr. Doreen Betancourt RBC 4.11 106/ul Critically low 4.20-5.40 [facility] Comment on above: Performed By: #### M G, CMP #### [facility] [address] [place] [address] Dr. Doreen Betancourt WBC 4.6 103/ul Normal 4.0-11.0 [facility] Comment on above: Performed By: #### M G, CMP #### [facility] [address] [address] [address] Doreen Betancourt Creatinine and Glomerular fi ltration rate.predicted panel (S/P/Bld)Ordered By: Isaías Jordan on 07-06-2022 Creatinine [Mass/Vol] 0.43 mg/dL 0.44-1.03 [facility] Estimated glomerular filtrat ion rate (GFR) non- AmericanOrdered By: Isaías Jordan on 07-06-2022 GFR/1.73 sq M.predicted among non-blacks MDRD (S/P/Bld) [Vol rate/Area] > 60 mL/Min [facility] Globulin Calc (S) [Mass/Vol] Ordered By: Isaías Jordan on 07-06-2022 Globulin (S) [Mass/Vol] 2.6 g/dL [facility] Laboratory - Chemistry and C hemistry - challengeOrdered By: Isaías Jordan on 07-06-2022 Magnesium [Mass/Vol] 2.8 mg/dL 1.6-2.6 [facility] MAGNESIUMon 07-06-2022 Magnesium [Mass/Vol] 2.0 mg/dL Normal 1.8-2.4 [facility] Comment on above: Performed By: #### C BC #### [facility] [address] [address] [address] Doreen Betancourt No Panel InformationOrdered By: Isaías Jordan on 07-06-2022 Estimated GFR () > 60 mL/Min [facility] Comment on above: GFR estimated refere nce range: According to KDOQI guidelines, <60 ml/min/1.73m2 is sufficient to diagnose a patient with chronic kidney disease. Pharmacy Creatinine Clearance (Chem N/A [facility] PROF 14(COMP METB)on 022 Albumin [Mass/Vol] 4.2 g/dL Normal 3.4-5.0 [facility] Comment on above: Result Comment: pref ormed at [facility]; ultrafuged specimen Performed By: #### C BC #### [facility] [address] [address] [address] Doreen Betancourt Albumin/Globulin [Mass ratio] 1.6 {ratio} Normal [facility] Comment on above: Performed By: #### C BC #### [facility] [address] [address] [address] Doreen Betancourt ALP [Catalytic activity/Vol] 102 U/L Normal 46-116 [facility] Comment on above: Result Comment: pref ormed at [facility] [place]; ultrafuged specimen Performed By: #### C BC #### [facility] [address] [address] [address] Doreen Betancorut ALT [Catalytic activity/Vol] 38 U/L Normal 14-59 [facility] Comment on above: Result Comment: pref ormed at [facility]; ultrafuged specimen Performed By: #### C BC #### [facility] [address] [place] [address] Dr. Doreen Betancourt Anion gap [Moles/Vol] 11.9 mmol/L Normal [facility] Comment on above: Performed By: #### C BC #### [facility] [address] [address] [address] Doreen Betancourt AST [Catalytic activity/Vol] 49 U/L Critically high 15-37 [facility] Comment on above: Result Comment: pref ormed at [facility] [place]; ultrafuged specimen Performed By: #### C BC #### [facility] [address] [place] [address] Dr. Doreen Betancourt Bilirubin [Mass/Vol] 0.7 mg/dL Normal 0.2-1.0 [facility] Comment on above: Result Comment: pref ormed at [facility] [place]; ultrafuged specimen Performed By: #### C BC #### [facility] [address] [place] [address] Dr. Doreen Betancourt Calcium [Mass/Vol] 9.5 mg/dL Normal 8.5-10.1 [facility] Comment on above: Result Comment: pref ormed at [facility] [place]; ultrafuged specimen Performed By: #### C BC #### [facility] [address] [place] [address] Dr. Doreen Betancourt Chloride [Moles/Vol] 101 mmol/L Normal 98-107 [facility] Comment on above: Result Comment: pref ormed at [facility] [place]; ultrafuged specimen Performed By: #### C BC #### [facility] [address] [place] [address] Dr. Doreen Betancourt CO2 [Moles/Vol] 25.4 mmol/L Normal 21.0-32.0 [facility] Comment on above: Result Comment: pref ormed at [facility] [place]; ultrafuged specimen Performed By: #### C BC #### [facility] [address] [place] [address] Dr. Doreen Betancourt Creatinine [Mass/Vol] 0.43 mg/dL Critically low 0.55-1.02 [facility] Comment on above: Result Comment: pref ormed at [facility] [place]; ultrafuged specimen Performed By: #### C BC #### [facility] [address] [place] [address] Dr. Doreen Betancourt EGFR-AF DANISH >60 Normal >=60 [facility] Comment on above: Performed By: #### C BC #### [facility] [address] [place] [address] Dr. Doreen Betancourt EGFR-NON AF DANISH >60 Normal >=60 [facility] Comment on above: Performed By: #### C BC #### [facility] [address] [place] [address] Dr. Doreen Betancourt Globulin (S) [Mass/Vol] 2.6 g/dL Normal [facility] Comment on above: Performed By: #### C BC #### [facility] [address] [place] [address] Dr. Doreen Betancourt Glucose [Mass/Vol] 102 mg/dL Normal 74-106 [facility] Comment on above: Result Comment: pref ormed at [facility]; ultrafuged specimen Performed By: #### C BC #### [facility] [address] [place] [address] Dr. Doreen Betancourt Potassium [Moles/Vol] 5.3 mmol/L Critically high 3.5-5.1 [facility] Comment on above: Result Comment: pref ormed at [facility] [place]; ultrafuged specimen Performed By: #### C BC #### [facility] [address] [address] [address] Doreen Betancourt Protein [Mass/Vol] 6.8 g/dL Normal 6.4-8.2 [facility] Comment on above: Result Comment: pref ormed at [facility] [place]; ultrafuged specimen Performed By: #### C BC #### [facility] [address] [address] [address] Doreen Betancourt Sodium [Moles/Vol] 133 mmol/L Critically low 136-145 [facility] Comment on above: Result Comment: pref ormed at [facility]; ultrafuged specimen Performed By: #### C BC #### [facility] [address] [address] [address] Doreen Betancourt Urea nitrogen [Mass/Vol] 18.0 mg/dL Normal 7.0-18.0 [facility] Comment on above: Result Comment: pref ormed at [facility]; ultrafuged specimen Performed By: #### C BC #### [facility] [address] [address] [address] Doreen Betancourt Urea nitrogen/Creatinine [Mass ratio] 41.6 mg/mg Normal [facility] Comment on above: Performed By: #### C BC #### [facility] [address] [address] [address] Doreen Betancourt Protein [Mass/volume] in Ser um or PlasmaOrdered By: Isaías Jordan on 07-06-2022 Protein [Mass/Vol] 6.8 g/dL 6.1-7.9 [facility] Serum or plasma alanine villalpando otransferase measurement without P-5'-P (enzymatic activiOrdered By: Isaías Jordan on 07-06-2022 ALT No additional P-5'-P [Catalytic activity/Vol] 38 U/L 10-60 [facility] Serum or plasma albumin/glob ulin mass ratioOrdered By: Isaías Jordan on 07-06-2022 Albumin/Globulin [Mass ratio] 1.6 {ratio} [facility] Serum or plasma alkaline joselito sphatase measurement (enzymatic activity/volume)Ordered By: Isaías Jordan on 07-06-2022 ALP [Catalytic activity/Vol] 102 U/L 32-92 [facility] Serum or plasma anion gap de terminationOrdered By: Isaías Jordan on 07-06-2022 Anion gap [Moles/Vol] 11.9 mmol/L 6.0-15.0 [facility] Serum or plasma aspartate am inotransferase measurement (enzymatic activity/volume)Ordered By: Isaías Jordan on 07-06-2022 AST [Catalytic activity/Vol] 49 U/L 10- [facility] Serum or plasma calcium idalmis urement (mass/volume)Ordered By: Isaías Jordan on 07-06-2022 Calcium [Mass/Vol] 9.5 mg/dL 8.2-10.2 [facility] Serum or plasma chloride joes surement (moles/volume)Ordered By: Isaías Jordan on 07-06-2022 Chloride [Moles/Vol] 101 mmol/L 95-114 [facility] Serum or plasma glucose idalmis urement (mass/volume)Ordered By: Isaías Jordan on 07-06-2022 Glucose [Mass/Vol] 102 mg/dL 70-100 [facility] Comment on above: ADA recommended refe rence rangeRandom Glucose Reference Range is dependent on time and content of last meal. Glucose of more than 200 mg/dL in a nonstressed, ambulatory subject supports the diagnosis of Diabetes Mellitus. Serum or plasma potassium me asurement (moles/volume)Ordered By: Isaías Jordan on 07-06-2022 Potassium [Moles/Vol] 5.3 mmol/L 3.5-5.1 [facility] Serum or plasma sodium measu rement (moles/volume)Ordered By: Isaías Jordan on 07-06-2022 Sodium [Moles/Vol] 133 mmol/L 136-146 [facility] Serum or plasma total biliru bin measurement (mass/volume)Ordered By: Isaías Jordan on 07-06-2022 Bilirubin [Mass/Vol] 0.7 mg/dL 0.3-1.2 [facility] Serum or plasma total carbon dioxide measurement (moles/volume)Ordered By: Isaías Jordan on 07-06-2022 CO2 [Moles/Vol] 25.4 mmol/L 22.0-30.0 [facility] Serum or plasma urea nitroge n measurement (mass/volume)Ordered By: Isaías Jordan on 07-06-2022 Urea nitrogen [Mass/Vol] 18 mg/dL 03-29 [facility] CBC AUTO DIFFon 06-22-2022 BASO # 0.0 103/ul Normal 0.0-0.1 [facility] Comment on above: Performed By: #### C BC #### [facility] [address] [address] [address] Doreen Betancourt Basophils/100 WBC (Bld) 0.5 % Normal 0.2-2.0 [facility] Comment on above: Performed By: #### C BC #### [facility] [address] [address] [address] Doreen Betancourt EO # 0.1 103/ul Normal 0.0-0.7 [facility] Comment on above: Performed By: #### C BC #### [facility] [address] [address] [address] Doreen Betancourt Eosinophils/100 WBC (Bld) 1.3 % Normal 0.9-7.0 [facility] Comment on above: Performed By: #### C BC #### [facility] [address] [address] [address] Doreen Betancourt Erythrocyte distribution width (RBC) [Ratio] 15.3 % Critically high 11.0-15.0 [facility] Comment on above: Performed By: #### C BC #### [facility] [address] [address] [address] Doreen Betancourt Hematocrit (Bld) [Volume fraction] 38.7 % Normal 36.0-48.0 [facility] Comment on above: Performed By: #### C BC #### [facility] [address] [address] [address] Doreen Betancourt Hemoglobin (Bld) [Mass/Vol] 12.5 g/dL Normal 12.0-16.0 [facility] Comment on above: Performed By: #### C BC #### [facility] [address] [place] [address] Dr. Doreen Betancourt IG # 0.01 10e3/ul Normal 0.00-0.03 [facility] Comment on above: Performed By: #### C BC #### [facility] [address] [place] [address] Dr. Doreen Betancourt IG % 0.3 % Normal 0.0-0.5 [facility] Comment on above: Performed By: #### C BC #### [facility] [address] [place] [address] Dr. Doreen Betancourt LYMPH # 1.8 103/ul Normal 1.2-3.8 [facility] Comment on above: Performed By: #### C BC #### [facility] [address] [place] [address] Dr. Doreen Betancourt Lymphocytes/100 WBC (Bld) 46.0 % Normal 20.5-60.0 [facility] Comment on above: Performed By: #### C BC #### [facility] [address] [place] [address] Dr. Doreen Betancourt MANUAL DIFF REQ NO Normal [facility] Comment on above: Performed By: #### C BC #### [facility] [address] [place] [address] Dr. Doreen Betancourt MCH (RBC) [Entitic mass] 30.0 pg Normal 26.7-34.0 [facility] Comment on above: Performed By: #### C BC #### [facility] [address] [place] [address] Dr. Doreen Betancourt MCHC (RBC) [Mass/Vol] 32.3 g/dL Normal 29.9-35.2 [facility] Comment on above: Performed By: #### C BC #### [facility] [address] [place] [address] Dr. Doreen Betancourt MCV (RBC) [Entitic vol] 93.0 fL Normal 81.0-99.0 [facility] Comment on above: Performed By: #### C BC #### [facility] [address] [place] [address] Dr. Doreen Betancourt MONO # 0.4 103/ul Normal 0.3-0.8 [facility] Comment on above: Performed By: #### C BC #### [facility] [address] [place] [address] Dr. Doreen Betancourt Monocytes/100 WBC (Bld) 9.5 % Normal 1.7-12.0 [facility] Comment on above: Performed By: #### C BC #### [facility] [address] [place] [address] Dr. Doreen Betancourt NEUT # 1.7 103/ul Normal 1.4-6.5 [facility] Comment on above: Performed By: #### C BC #### [facility] [address] [place] [address] Dr. Doreen Betancourt Neutrophils/100 WBC (Bld) 42.4 % Critically low 43.0-75.0 [facility] Comment on above: Performed By: #### C BC #### [facility] [address] [place] [address] Dr. Doreen Betancourt Platelet mean volume (Bld) [Entitic vol] 9.9 fL Normal 9.5-13.5 [facility] Comment on above: Performed By: #### C BC #### [facility] [address] [place] [address] Dr. Doreen Betancourt PLT 178 103/ul Normal 150-450 [facility] Comment on above: Performed By: #### C BC #### [facility] [address] [place] [address] Dr. Doreen Betancourt RBC 4.16 106/ul Critically low 4.20-5.40 [facility] Comment on above: Performed By: #### C BC #### [facility] [address] [place] [address] Dr. Doreen Betancourt WBC 4.0 103/ul Normal 4.0-11.0 [facility] Comment on above: Performed By: #### C BC #### [facility] [address] [place] [address] Dr. Doreen Betancourt MAGNESIUMon 06-22-2022 Magnesium [Mass/Vol] 1.9 mg/dL Normal 1.8-2.4 [facility] Comment on above: Performed By: #### M G, CMP #### [facility] [address] [place] [address] Dr. Doreen Betancourt PROF 14(COMP METB)on 022 Albumin [Mass/Vol] 3.7 g/dL Normal 3.4-5.0 [facility] Comment on above: Performed By: #### M G, CMP #### [facility] [address] [place] [address] Dr. Doreen Betancourt Albumin/Globulin [Mass ratio] 1.1 {ratio} Normal [facility] Comment on above: Performed By: #### M G, CMP #### [facility] [address] [place] [address] Dr. Doreen Betancourt ALP [Catalytic activity/Vol] 125 U/L Critically high 46-116 [facility] Comment on above: Performed By: #### Gay G, CMP #### [facility] [address] [place] [address] Dr. Doreen Betancourt ALT [Catalytic activity/Vol] 16 U/L Normal 14-59 [facility] Comment on above: Performed By: #### M G, CMP #### [facility] [address] [place] [address] Dr. Doreen Betancourt Anion gap [Moles/Vol] 8.8 mmol/L Normal [facility] Comment on above: Performed By: #### M G, CMP #### [facility] [address] [place] [address] Dr. Doreen Betancourt AST [Catalytic activity/Vol] 5 U/L Critically low 15-37 [facility] Comment on above: Performed By: #### M G, CMP #### [facility] [address] [place] [address] Dr. Doreen Betancourt Bilirubin [Mass/Vol] 0.3 mg/dL Normal 0.2-1.0 [facility] Comment on above: Performed By: #### M G, CMP #### [facility] [address] [place] [address] Dr. Doreen Betancourt Calcium [Mass/Vol] 8.8 mg/dL Normal 8.5-10.1 [facility] Comment on above: Performed By: #### M G, CMP #### [facility] [address] [place] [address] Dr. Doreen Betancourt Chloride [Moles/Vol] 104 mmol/L Normal 98-107 [facility] Comment on above: Performed By: #### M G, CMP #### [facility] [address] [place] [address] Dr. Doreen Betancourt CO2 [Moles/Vol] 29.5 mmol/L Normal 21.0-32.0 [facility] Comment on above: Performed By: #### M G, CMP #### [facility] [address] [place] [address] Dr. Doreen Betancourt Creatinine [Mass/Vol] 0.75 mg/dL Normal 0.55-1.02 [facility] Comment on above: Performed By: #### Gay G, CMP #### [facility] [address] [place] [address] Dr. Doreen Betancourt EGFR-AF DANISH >60 Normal >=60 [facility] Comment on above: Performed By: #### M G, CMP #### [facility] [address] [place] [address] Dr. Doreen Betancourt EGFR-NON AF DANISH >60 Normal >=60 [facility] Comment on above: Performed By: #### M G, CMP #### [facility] [address] [place] [address] Dr. Doreen Betancourt Globulin (S) [Mass/Vol] 3.3 g/dL Normal [facility] Comment on above: Performed By: #### M G, CMP #### [facility] [address] [place] [address] Dr. Doreen Betancourt Glucose [Mass/Vol] 110 mg/dL Critically high 74-106 [facility] Comment on above: Performed By: #### M G, CMP #### [facility] [address] [place] [address] Dr. Doreen Betancourt Potassium [Moles/Vol] 4.3 mmol/L Normal 3.5-5.1 [facility] Comment on above: Performed By: #### M G, CMP #### [facility] [address] [place] [address] Dr. Doreen Betancourt Protein [Mass/Vol] 7.0 g/dL Normal 6.4-8.2 [facility] Comment on above: Performed By: #### M G, CMP #### [facility] [address] [place] [address] Dr. Doreen Betancourt Sodium [Moles/Vol] 138 mmol/L Normal 136-145 [facility] Comment on above: Performed By: #### M G, CMP #### [facility] [address] [place] [address] Dr. Doreen Betancourt Urea nitrogen [Mass/Vol] 11.0 mg/dL Normal 7.0-18.0 [facility] Comment on above: Performed By: #### M G, CMP #### [facility] [address] [place] [address] Dr. Doreen Betancourt Urea nitrogen/Creatinine [Mass ratio] 14.7 mg/mg Normal [facility] Comment on above: Performed By: #### M G, CMP #### [facility] [address] [place] [address] Dr. Doreen Betancourt CBC AUTO DIFFon 06-08-2022 BASO # 0.0 103/ul Normal 0.0-0.1 [facility] Comment on above: Performed By: #### M G, CMP #### [facility] [address] [place] [address] Dr. Doreen Betancourt Basophils/100 WBC (Bld) 0.8 % Normal 0.2-2.0 [facility] Comment on above: Performed By: #### M G, CMP #### [facility] [address] [place] [address] Dr. Doreen Betancourt EO # 0.1 103/ul Normal 0.0-0.7 [facility] Comment on above: Performed By: #### M G, CMP #### [facility] [address] [place] [address] Dr. Doreen Betancourt Eosinophils/100 WBC (Bld) 2.3 % Normal 0.9-7.0 [facility] Comment on above: Performed By: #### M G, CMP #### [facility] [address] [place] [address] Dr. Doreen Betancourt Erythrocyte distribution width (RBC) [Ratio] 14.5 % Normal 11.0-15.0 [facility] Comment on above: Performed By: #### M G, CMP #### [facility] [address] [place] [address] Dr. Doreen Betancourt Hematocrit (Bld) [Volume fraction] 38.8 % Normal 36.0-48.0 [facility] Comment on above: Performed By: #### M G, CMP #### [facility] [address] [place] [address] Dr. Doreen Betancourt Hemoglobin (Bld) [Mass/Vol] 12.6 g/dL Normal 12.0-16.0 [facility] Comment on above: Performed By: #### M G, CMP #### [facility] [address] [place] [address] Dr. Doreen Betancourt IG # 0.00 10e3/ul Normal 0.00-0.03 [facility] Comment on above: Performed By: #### M G, CMP #### [facility] [address] [place] [address] Dr. Doreen Betancourt IG % 0.0 % Normal 0.0-0.5 [facility] Comment on above: Performed By: #### M G, CMP #### [facility] [address] [place] [address] Dr. Doreen Betancourt LYMPH # 1.9 103/ul Normal 1.2-3.8 [facility] Comment on above: Performed By: #### M G, CMP #### [facility] [address] [place] [address] Dr. Doreen Betancourt Lymphocytes/100 WBC (Bld) 46.7 % Normal 20.5-60.0 [facility] Comment on above: Performed By: #### M G, CMP #### [facility] [address] [place] [address] Dr. Dorene Betancourt MANUAL DIFF REQ NO Normal [facility] Comment on above: Performed By: #### M G, CMP #### [facility] [address] [place] [address] Dr. Doreen Betancourt MCH (RBC) [Entitic mass] 30.3 pg Normal 26.7-34.0 [facility] Comment on above: Performed By: #### M G, CMP #### [facility] [address] [place] [address] Dr. Doreen eBtancourt MCHC (RBC) [Mass/Vol] 32.5 g/dL Normal 29.9-35.2 [facility] Comment on above: Performed By: #### M G, CMP #### [facility] [address] [place] [address] Dr. Doreen Betancourt MCV (RBC) [Entitic vol] 93.3 fL Normal 81.0-99.0 [facility] Comment on above: Performed By: #### M G, CMP #### [facility] [address] [place] [address] Dr. Doreen Betancourt MONO # 0.4 103/ul Normal 0.3-0.8 [facility] Comment on above: Performed By: #### M G, CMP #### [facility] [address] [place] [address] Dr. Doreen Betancourt Monocytes/100 WBC (Bld) 11.1 % Normal 1.7-12.0 [facility] Comment on above: Performed By: #### M G, CMP #### [facility] [address] [place] [address] Dr. Doreen Betancourt NEUT # 1.6 103/ul Normal 1.4-6.5 [facility] Comment on above: Performed By: #### M G, CMP #### [facility] [address] [place] [address] Dr. Doreen Betancourt Neutrophils/100 WBC (Bld) 39.1 % Critically low 43.0-75.0 [facility] Comment on above: Performed By: #### M G, CMP #### [facility] [address] [place] [address] Dr. Doreen Betancourt Platelet mean volume (Bld) [Entitic vol] 9.9 fL Normal 9.5-13.5 [facility] Comment on above: Performed By: #### M G, CMP #### [facility] [address] [place] [address] Dr. Doreen Betancourt PLT 220 103/ul Normal 150-450 [facility] Comment on above: Performed By: #### M G, CMP #### [facility] [address] [place] [address] Dr. Doreen Betancourt RBC 4.16 106/ul Critically low 4.20-5.40 [facility] Comment on above: Performed By: #### M G, CMP #### [facility] [address] [place] [address] Dr. Doreen Betancourt WBC 4.0 103/ul Normal 4.0-11.0 [facility] Comment on above: Performed By: #### M G, CMP #### [facility] [address] [place] [address] Dr. Doreen Betancourt MAGNESIUMon 06-08-2022 Magnesium [Mass/Vol] 2.2 mg/dL Normal 1.8-2.4 [facility] Comment on above: Performed By: #### C VDTBH #### [facility] [address] [place] [address] Dr. Doreen Betancourt PROF 14(COMP METB)on 022 Albumin [Mass/Vol] 3.9 g/dL Normal 3.4-5.0 [facility] Comment on above: Performed By: #### C VDTBH #### [facility] [address] [place] [address] Dr. Doreen Betancourt Albumin/Globulin [Mass ratio] 1.1 {ratio} Normal [facility] Comment on above: Performed By: #### C VDTBH #### [facility] [address] [place] [address] Dr. Doreen Betancourt ALP [Catalytic activity/Vol] 100 U/L Normal 46-116 [facility] Comment on above: Performed By: #### C VDTBH #### [facility] [address] [address] [address] Doreen Betancourt ALT [Catalytic activity/Vol] 19 U/L Normal 14-59 [facility] Comment on above: Performed By: #### C VDTBH #### [facility] [address] [address] [address] Doreen Betancourt Anion gap [Moles/Vol] 6.9 mmol/L Normal [facility] Comment on above: Performed By: #### C VDTBH #### [facility] [address] [address] [address] Doreen Betancourt AST [Catalytic activity/Vol] 14 U/L Critically low 15-37 [facility] Comment on above: Performed By: #### C VDTBH #### [facility] [address] [place] [address] Dr. Doreen Betancourt Bilirubin [Mass/Vol] 0.3 mg/dL Normal 0.2-1.0 [facility] Comment on above: Performed By: #### C VDTBH #### [facility] [address] [place] [address] Dr. Doreen Betancourt Calcium [Mass/Vol] 9.6 mg/dL Normal 8.5-10.1 [facility] Comment on above: Performed By: #### C VDTBH #### [facility] [address] [place] [address] Dr. Doreen Betancourt Chloride [Moles/Vol] 105 mmol/L Normal 98-107 [facility] Comment on above: Performed By: #### C VDTBH #### [facility] [address] [address] [address] Doreen Betancourt CO2 [Moles/Vol] 32.2 mmol/L Critically high 21.0-32.0 [facility] Comment on above: Performed By: #### C VDTBH #### [facility] [address] [place] [address] Dr. Doreen Betancourt Creatinine [Mass/Vol] 0.69 mg/dL Normal 0.55-1.02 [facility] Comment on above: Performed By: #### C VDTBH #### [facility] [address] [address] [address] Doreen Betancourt EGFR-AF DANISH >60 Normal >=60 [facility] Comment on above: Performed By: #### C VDTBH #### [facility] [address] [address] [address] Doreen Betancourt EGFR-NON AF DANISH >60 Normal >=60 [facility] Comment on above: Performed By: #### C VDTBH #### [facility] [address] [address] [address] Doreen Betancourt Globulin (S) [Mass/Vol] 3.6 g/dL Normal [facility] Comment on above: Performed By: #### C VDTBH #### [facility] [address] [place] [address] Dr. Doreen Betancourt Glucose [Mass/Vol] 103 mg/dL Normal 74-106 [facility] Comment on above: Performed By: #### C VDTBH #### [facility] [address] [place] [address] Dr. Doreen Betancourt Potassium [Moles/Vol] 5.1 mmol/L Normal 3.5-5.1 [facility] Comment on above: Performed By: #### C VDTBH #### [facility] [address] [place] [address] Dr. Doreen Betancourt Protein [Mass/Vol] 7.5 g/dL Normal 6.4-8.2 [facility] Comment on above: Performed By: #### C VDTBH #### [facility] [address] [place] [address] Dr. Doreen Betancourt Sodium [Moles/Vol] 139 mmol/L Normal 136-145 [facility] Comment on above: Performed By: #### C VDTBH #### [facility] [address] [place] [address] Dr. Doreen Betancourt Urea nitrogen [Mass/Vol] 13.0 mg/dL Normal 7.0-18.0 [facility] Comment on above: Performed By: #### C VDTBH #### [facility] [address] [place] [address] Dr. Doreen Betancourt Urea nitrogen/Creatinine [Mass ratio] 18.8 mg/mg Normal [facility] Comment on above: Performed By: #### C VDTBH #### [facility] [address] [place] [address] Dr. Doreen Betancourt CBC AUTO DIFFon 06-01-2022 BASO # 0.0 103/ul Normal 0.0-0.1 [facility] Comment on above: Performed By: #### C BC #### [facility] [address] [place] [address] Dr. Doreen Betancourt Basophils/100 WBC (Bld) 0.7 % Normal 0.2-2.0 [facility] Comment on above: Performed By: #### C BC #### [facility] [address] [place] [address] Dr. Doreen Betancourt EO # 0.1 103/ul Normal 0.0-0.7 [facility] Comment on above: Performed By: #### C BC #### [facility] [address] [place] [address] Dr. Doreen Betancourt Eosinophils/100 WBC (Bld) 2.0 % Normal 0.9-7.0 [facility] Comment on above: Performed By: #### C BC #### [facility] [address] [place] [address] Dr. Doreen Betancourt Erythrocyte distribution width (RBC) [Ratio] 13.9 % Normal 11.0-15.0 [facility] Comment on above: Performed By: #### C BC #### [facility] [address] [place] [address] Dr. Doreen Betancourt Hematocrit (Bld) [Volume fraction] 41.2 % Normal 36.0-48.0 [facility] Comment on above: Performed By: #### C BC #### [facility] [address] [place] [address] Dr. Doreen Betancourt Hemoglobin (Bld) [Mass/Vol] 13.2 g/dL Normal 12.0-16.0 [facility] Comment on above: Performed By: #### C BC #### [facility] [address] [place] [address] Dr. Doreen Betancourt IG # 0.01 10e3/ul Normal 0.00-0.03 [facility] Comment on above: Performed By: #### C BC #### [facility] [address] [place] [address] Dr. Doreen Betancourt IG % 0.2 % Normal 0.0-0.5 [facility] Comment on above: Performed By: #### C BC #### [facility] [address] [place] [address] Dr. Doreen Betancourt LYMPH # 1.9 103/ul Normal 1.2-3.8 [facility] Comment on above: Performed By: #### C BC #### [facility] [address] [place] [address] Dr. Doreen Betancourt Lymphocytes/100 WBC (Bld) 41.0 % Normal 20.5-60.0 [facility] Comment on above: Performed By: #### C BC #### [facility] [address] [place] [address] Dr. Doreen Betancourt MANUAL DIFF REQ NO Normal [facility] Comment on above: Performed By: #### C BC #### [facility] [address] [place] [address] Dr. Doreen Betancourt MCH (RBC) [Entitic mass] 29.3 pg Normal 26.7-34.0 [facility] Comment on above: Performed By: #### C BC #### [facility] [address] [place] [address] Dr. Doreen Betancourt MCHC (RBC) [Mass/Vol] 32.0 g/dL Normal 29.9-35.2 [facility] Comment on above: Performed By: #### C BC #### [facility] [address] [place] [address] Dr. Doreen Betancourt MCV (RBC) [Entitic vol] 91.6 fL Normal 81.0-99.0 [facility] Comment on above: Performed By: #### C BC #### [facility] [address] [place] [address] Dr. Doreen Betancourt MONO # 0.1 103/ul Critically low 0.3-0.8 [facility] Comment on above: Performed By: #### C BC #### [facility] [address] [place] [address] Dr. Doreen Betancourt Monocytes/100 WBC (Bld) 1.5 % Critically low 1.7-12.0 [facility] Comment on above: Performed By: #### C BC #### [facility] [address] [place] [address] Dr. Doreen Betancourt NEUT # 2.5 103/ul Normal 1.4-6.5 [facility] Comment on above: Performed By: #### C BC #### [facility] [address] [place] [address] Dr. Doreen Betancourt Neutrophils/100 WBC (Bld) 54.6 % Normal 43.0-75.0 [facility] Comment on above: Performed By: #### C BC #### [facility] [address] [place] [address] Dr. Doreen Betancourt Platelet mean volume (Bld) [Entitic vol] 10.5 fL Normal 9.5-13.5 [facility] Comment on above: Performed By: #### C BC #### [facility] [address] [place] [address] Dr. Doreen Betancourt PLT 270 103/ul Normal 150-450 [facility] Comment on above: Performed By: #### C BC #### [facility] [address] [place] [address] Dr. Doreen Betancourt RBC 4.50 106/ul Normal 4.20-5.40 [facility] Comment on above: Performed By: #### C BC #### [facility] [address] [place] [address] Dr. Doreen Betancourt WBC 4.6 103/ul Normal 4.0-11.0 [facility] Comment on above: Performed By: #### C BC #### [facility] [address] [place] [address] Dr. Doreen Betancourt PROF 14(COMP METB)on 022 Albumin [Mass/Vol] 3.9 g/dL Normal 3.4-5.0 [facility] Comment on above: Performed By: #### C BC #### [facility] [address] [place] [address] Dr. Doreen Betancourt Albumin/Globulin [Mass ratio] 1.0 {ratio} Normal [facility] Comment on above: Performed By: #### C BC #### [facility] [address] [place] [address] Dr. Doreen Betancourt ALP [Catalytic activity/Vol] 83 U/L Normal 46-116 [facility] Comment on above: Performed By: #### C BC #### [facility] [address] [place] [address] Dr. Doreen Betancourt ALT [Catalytic activity/Vol] 22 U/L Normal 14-59 [facility] Comment on above: Performed By: #### C BC #### [facility] [address] [place] [address] Dr. Doreen Betancourt Anion gap [Moles/Vol] 12.6 mmol/L Normal [facility] Comment on above: Performed By: #### C BC #### [facility] [address] [place] [address] Dr. Doreen Betancourt AST [Catalytic activity/Vol] 16 U/L Normal 15-37 [facility] Comment on above: Performed By: #### C BC #### [facility] [address] [place] [address] Dr. Doreen Betancourt Bilirubin [Mass/Vol] 0.6 mg/dL Normal 0.2-1.0 [facility] Comment on above: Performed By: #### C BC #### [facility] [address] [place] [address] Dr. Doreen Betancourt Calcium [Mass/Vol] 9.4 mg/dL Normal 8.5-10.1 [facility] Comment on above: Performed By: #### C BC #### [facility] [address] [place] [address] Dr. Doreen Betancourt Chloride [Moles/Vol] 101 mmol/L Normal 98-107 [facility] Comment on above: Performed By: #### C BC #### [facility] [address] [place] [address] Dr. Doreen Betancourt CO2 [Moles/Vol] 25.9 mmol/L Normal 21.0-32.0 [facility] Comment on above: Performed By: #### C BC #### [facility] [address] [place] [address] Dr. Doreen Betancourt Creatinine [Mass/Vol] 0.64 mg/dL Normal 0.55-1.02 [facility] Comment on above: Performed By: #### C BC #### [facility] [address] [place] [address] Dr. Doreen Betancourt EGFR-AF DANISH >60 Normal >=60 [facility] Comment on above: Performed By: #### C BC #### [facility] [address] [place] [address] Dr. Doreen Betancourt EGFR-NON AF DANISH >60 Normal >=60 [facility] Comment on above: Performed By: #### C BC #### [facility] [address] [place] [address] Dr. Doreen Betancourt Globulin (S) [Mass/Vol] 3.9 g/dL Normal [facility] Comment on above: Performed By: #### C BC #### [facility] [address] [place] [address] Dr. Doreen Betancourt Glucose [Mass/Vol] 135 mg/dL Critically high 74-106 [facility] Comment on above: Performed By: #### C BC #### [facility] [address] [place] [address] Dr. Doreen Betancourt Potassium [Moles/Vol] 4.5 mmol/L Normal 3.5-5.1 [facility] Comment on above: Performed By: #### C BC #### [facility] [address] [place] [address] Dr. Doreen Betancourt Protein [Mass/Vol] 7.8 g/dL Normal 6.4-8.2 [facility] Comment on above: Performed By: #### C BC #### [facility] [address] [place] [address] Dr. Doreen Betancourt Sodium [Moles/Vol] 135 mmol/L Critically low 136-145 [facility] Comment on above: Performed By: #### C BC #### [facility] [address] [place] [address] Dr. Doreen Betancourt Urea nitrogen [Mass/Vol] 15.0 mg/dL Normal 7.0-18.0 [facility] Comment on above: Performed By: #### C BC #### [facility] [address] [place] [address] Dr. Doreen Betancourt Urea nitrogen/Creatinine [Mass ratio] 23.4 mg/mg Normal [facility] Comment on above: Performed By: #### C BC #### [facility] [address] [place] [address] Dr. Doreen Betancourt CBC AUTO DIFFon 05-22-2022 BASO # 0.0 103/ul Normal 0.0-0.1 [facility] Comment on above: Performed By: #### C VDTBH #### [facility] [address] [place] [address] Dr. Doreen Betancourt Basophils/100 WBC (Bld) 0.8 % Normal 0.2-2.0 [facility] Comment on above: Performed By: #### C VDTBH #### [facility] [address] [place] [address] Dr. Doreen Betancourt EO # 0.1 103/ul Normal 0.0-0.7 [facility] Comment on above: Performed By: #### C VDTBH #### [facility] [address] [place] [address] Dr. Doreen Betancourt Eosinophils/100 WBC (Bld) 2.7 % Normal 0.9-7.0 [facility] Comment on above: Performed By: #### C VDTBH #### [facility] [address] [place] [address] Dr. Doreen Betancourt Erythrocyte distribution width (RBC) [Ratio] 13.9 % Normal 11.0-15.0 [facility] Comment on above: Performed By: #### C VDTBH #### [facility] [address] [place] [address] Dr. Doreen Betancourt Hematocrit (Bld) [Volume fraction] 40.9 % Normal 36.0-48.0 [facility] Comment on above: Performed By: #### C VDTBH #### [facility] [address] [place] [address] Dr. Doreen Betancourt Hemoglobin (Bld) [Mass/Vol] 13.1 g/dL Normal 12.0-16.0 [facility] Comment on above: Performed By: #### C VDTBH #### [facility] [address] [place] [address] Dr. Doreen Betancourt IG # 0.01 10e3/ul Normal 0.00-0.03 [facility] Comment on above: Performed By: #### C VDTBH #### [facility] [address] [place] [address] Dr. Doreen Betancourt IG % 0.2 % Normal 0.0-0.5 [facility] Comment on above: Performed By: #### C VDTBH #### [facility] [address] [place] [address] Dr. Doreen Betancourt LYMPH # 1.9 103/ul Normal 1.2-3.8 [facility] Comment on above: Performed By: #### C VDTBH #### [facility] [address] [place] [address] Dr. Doreen Betancourt Lymphocytes/100 WBC (Bld) 39.1 % Normal 20.5-60.0 [facility] Comment on above: Performed By: #### C VDTBH #### [facility] [address] [place] [address] Dr. Doreen Betancourt MANUAL DIFF REQ NO Normal [facility] Comment on above: Performed By: #### C VDTBH #### [facility] [address] [place] [address] Dr. Doreen Betancourt MCH (RBC) [Entitic mass] 29.6 pg Normal 26.7-34.0 [facility] Comment on above: Performed By: #### C VDTBH #### [facility] [address] [place] [address] Dr. Doreen Betancourt MCHC (RBC) [Mass/Vol] 32.0 g/dL Normal 29.9-35.2 [facility] Comment on above: Performed By: #### C VDTBH #### [facility] [address] [place] [address] Dr. Doreen Betancourt MCV (RBC) [Entitic vol] 92.3 fL Normal 81.0-99.0 [facility] Comment on above: Performed By: #### C VDTBH #### [facility] [address] [place] [address] Dr. Doreen Betancourt MONO # 0.4 103/ul Normal 0.3-0.8 [facility] Comment on above: Performed By: #### C VDTBH #### [facility] [address] [place] [address] Dr. Doreen Betancourt Monocytes/100 WBC (Bld) 7.6 % Normal 1.7-12.0 [facility] Comment on above: Performed By: #### C VDTBH #### [facility] [address] [place] [address] Dr. Doreen Betancourt NEUT # 2.4 103/ul Normal 1.4-6.5 [facility] Comment on above: Performed By: #### C VDTBH #### [facility] [address] [place] [address] Dr. Doreen Betancourt Neutrophils/100 WBC (Bld) 49.6 % Normal 43.0-75.0 [facility] Comment on above: Performed By: #### C VDTBH #### [facility] [address] [place] [address] Dr. Doreen Betancourt Platelet mean volume (Bld) [Entitic vol] 10.3 fL Normal 9.5-13.5 [facility] Comment on above: Performed By: #### C VDTBH #### [facility] [address] [place] [address] Dr. Doreen Betancourt PLT 274 103/ul Normal 150-450 [facility] Comment on above: Performed By: #### C VDTBH #### [facility] [address] [place] [address] Dr. Doreen Betancourt RBC 4.43 106/ul Normal 4.20-5.40 [facility] Comment on above: Performed By: #### C VDTBH #### [facility] [address] [place] [address] Dr. Doreen Betancourt WBC 4.9 103/ul Normal 4.0-11.0 [facility] Comment on above: Performed By: #### C VDTBH #### [facility] [address] [place] [address] Dr. Doreen Betancourt MAGNESIUMon 05-22-2022 Magnesium [Mass/Vol] 2.1 mg/dL Normal 1.8-2.4 [facility] Comment on above: Performed By: #### M G, CMP #### [facility] [address] [place] [address] Dr. Doreen Betancourt PREG HCG QUALon 05-22-2022 , QUAL Negative Normal NEGATIVE [facility] Comment on above: Performed By: #### M G, CMP #### [facility] [address] [place] [address] Dr. Doreen Betancourt PROF 14(COMP METB)on 022 Albumin [Mass/Vol] 3.9 g/dL Normal 3.4-5.0 [facility] Comment on above: Performed By: #### M G, CMP #### [facility] [address] [place] [address] Dr. Doreen Betancourt Albumin/Globulin [Mass ratio] 1.1 {ratio} Normal [facility] Comment on above: Performed By: #### M G, CMP #### [facility] [address] [place] [address] Dr. Doreen Betancourt ALP [Catalytic activity/Vol] 81 U/L Normal 46-116 [facility] Comment on above: Performed By: #### M G, CMP #### [facility] [address] [place] [address] Dr. Doreen Betancourt ALT [Catalytic activity/Vol] 27 U/L Normal 14-59 [facility] Comment on above: Performed By: #### M G, CMP #### [facility] [address] [place] [address] Dr. Doreen Betancourt Anion gap [Moles/Vol] 8.6 mmol/L Normal [facility] Comment on above: Performed By: #### M G, CMP #### [facility] [address] [place] [address] Dr. Doreen Betancourt AST [Catalytic activity/Vol] 23 U/L Normal 15-37 [facility] Comment on above: Performed By: #### M G, CMP #### [facility] [address] [place] [address] Dr. Doreen Betancourt Bilirubin [Mass/Vol] 0.3 mg/dL Normal 0.2-1.0 [facility] Comment on above: Performed By: #### M G, CMP #### [facility] [address] [place] [address] Dr. Doreen Betancourt Calcium [Mass/Vol] 9.5 mg/dL Normal 8.5-10.1 [facility] Comment on above: Performed By: #### M G, CMP #### [facility] [address] [place] [address] Dr. Doreen Betancourt Chloride [Moles/Vol] 104 mmol/L Normal 98-107 [facility] Comment on above: Performed By: #### M G, CMP #### [facility] [address] [place] [address] Dr. Doreen Betancourt CO2 [Moles/Vol] 31.8 mmol/L Normal 21.0-32.0 [facility] Comment on above: Performed By: #### M G, CMP #### [facility] [address] [place] [address] Dr. Doreen Betancourt Creatinine [Mass/Vol] 0.59 mg/dL Normal 0.55-1.02 [facility] Comment on above: Performed By: #### M G, CMP #### [facility] [address] [place] [address] Dr. Doreen Betancourt EGFR-AF DANISH >60 Normal >=60 [facility] Comment on above: Performed By: #### M G, CMP #### [facility] [address] [place] [address] Dr. Doreen Betancourt EGFR-NON AF DANISH >60 Normal >=60 [facility] Comment on above: Performed By: #### M G, CMP #### [facility] [address] [place] [address] Dr. Doreen Betancourt Globulin (S) [Mass/Vol] 3.7 g/dL Normal [facility] Comment on above: Performed By: #### M G, CMP #### [facility] [address] [place] [address] Dr. Doreen Betancourt Glucose [Mass/Vol] 110 mg/dL Critically high 74-106 T [facility] Comment on above: Performed By: #### M G, CMP #### [facility] [address] [place] [address] Dr. Doreen Betancourt Potassium [Moles/Vol] 4.4 mmol/L Normal 3.5-5.1 [facility] Comment on above: Performed By: #### M G, CMP #### [facility] [address] [place] [address] Dr. Doreen Betancourt Protein [Mass/Vol] 7.6 g/dL Normal 6.4-8.2 [facility] Comment on above: Performed By: #### M G, CMP #### [facility] [address] [place] [address] Dr. Doreen Betancourt Sodium [Moles/Vol] 140 mmol/L Normal 136-145 [facility] Comment on above: Performed By: #### M G, CMP #### [facility] [address] [place] [address] Dr. Doreen Betancourt Urea nitrogen [Mass/Vol] 17.0 mg/dL Normal 7.0-18.0 [facility] Comment on above: Performed By: #### M G, CMP #### [facility] [address] [place] [address] Dr. Doreen Betancourt Urea nitrogen/Creatinine [Mass ratio] 28.8 mg/mg Normal [facility] Comment on above: Performed By: #### M G, [facility] [address] #### [facility] [address] [address] [address] Doreen Betancourt XR CHEST 1 Von [...] COULTER Date: 2022-05-22 11:22 Normal [facility] Covid-19 PCR (CVDTB)on 05-07 SARS-CoV-2 (COVID-19) RNA MARIVEL+probe Ql (Unsp spec) Not detected Normal NOT DETECTED [facility] Comment on above: Result Comment: This test is not yet approved or cleared by the [place] FDA. When there are no FDA-approved or cleared tests available, and other criteria are met, FDA can make tests available under an emergency access mechanism called an Emergency Use Authorization (EUA). The EUA for this test is supported by the Building [employer] of Health and Human Service's (HHS's) declaration [...] SARS-CoV-2. Performed By: #### C VDTBH #### [facility] [address] [place] [address] Dr. Doreen Betancourt CBC AUTO DIFFon 04-13-2022 BASO # 0.0 103/ul Normal 0.0-0.1 [facility] Comment on above: Performed By: #### M G, CMP #### [facility] [address] [place] [address] Dr. Doreen Betancourt Basophils/100 WBC (Bld) 0.4 % Normal 0.2-2.0 [facility] Comment on above: Performed By: #### M G, CMP #### [facility] [address] [place] [address] Dr. Doreen Betancourt EO # 0.1 103/ul Normal 0.0-0.7 [facility] Comment on above: Performed By: #### M G, CMP #### [facility] [address] [place] [address] Dr. Doreen Betancourt Eosinophils/100 WBC (Bld) 0.7 % Critically low 0.9-7.0 [facility] Comment on above: Performed By: #### M G, CMP #### [facility] [address] [place] [address] Dr. Doreen Betancourt Erythrocyte distribution width (RBC) [Ratio] 12.9 % Normal 11.0-15.0 [facility] Comment on above: Performed By: #### M G, CMP #### [facility] [address] [place] [address] Dr. Doreen Betancourt Hematocrit (Bld) [Volume fraction] 32.5 % Critically low 36.0-48.0 [facility] Comment on above: Performed By: #### M G, CMP #### [facility] [address] [place] [address] Dr. Doreen Betancourt Hemoglobin (Bld) [Mass/Vol] 10.6 g/dL Critically low 12.0-16.0 [facility] Comment on above: Performed By: #### M G, CMP #### [facility] [address] [place] [address] Dr. Doreen Betancourt IG # 0.02 10e3/ul Normal 0.00-0.03 [facility] Comment on above: Performed By: #### M G, CMP #### [facility] [address] [address] [address] Doreen Betancourt IG % 0.3 % Normal 0.0-0.5 [facility] Comment on above: Performed By: #### M G, CMP #### [facility] [address] [address] [address] Doreen Betancourt LYMPH # 2.2 103/ul Normal 1.2-3.8 [facility] Comment on above: Performed By: #### M G, CMP #### [facility] [address] [address] [address] Doreen Betancourt Lymphocytes/100 WBC (Bld) 32.0 % Normal 20.5-60.0 [facility] Comment on above: Performed By: #### M G, CMP #### [facility] [address] [place] [address] Dr. Doreen Betancourt MANUAL DIFF REQ NO Normal [facility] Comment on above: Performed By: #### M G, CMP #### [facility] [address] [place] [address] Dr. Doreen Betancourt MCH (RBC) [Entitic mass] 30.5 pg Normal 26.7-34.0 [facility] Comment on above: Performed By: #### M G, CMP #### [facility] [address] [place] [address] Dr. Doreen Betancourt MCHC (RBC) [Mass/Vol] 32.6 g/dL Normal 29.9-35.2 [facility] Comment on above: Performed By: #### M G, CMP #### [facility] [address] [address] [address] Doreen Betancourt MCV (RBC) [Entitic vol] 93.4 fL Normal 81.0-99.0 [facility] Comment on above: Performed By: #### M G, CMP #### [facility] [address] [address] [address] Doreen Betancourt MONO # 0.6 103/ul Normal 0.3-0.8 [facility] Comment on above: Performed By: #### M G, CMP #### [facility] [address] [place] [address] Dr. Doreen Betancourt Monocytes/100 WBC (Bld) 8.3 % Normal 1.7-12.0 [facility] Comment on above: Performed By: #### M G, CMP #### [facility] [address] [place] [address] Dr. Doreen Betancourt NEUT # 3.9 103/ul Normal 1.4-6.5 [facility] Comment on above: Performed By: #### M G, CMP #### [facility] [address] [place] [address] Dr. Doreen Betancourt Neutrophils/100 WBC (Bld) 58.3 % Normal 43.0-75.0 [facility] Comment on above: Performed By: #### M G, CMP #### [facility] [address] [place] [address] Dr. Doreen Betancourt Platelet mean volume (Bld) [Entitic vol] 10.4 fL Normal 9.5-13.5 [facility] Comment on above: Performed By: #### M G, CMP #### [facility] [address] [place] [address] Dr. Doreen Betancourt PLT 213 103/ul Normal 150-450 [facility] Comment on above: Performed By: #### M G, CMP #### [facility] [address] [place] [address] Dr. Doreen Betancourt RBC 3.48 106/ul Critically low 4.20-5.40 [facility] Comment on above: Performed By: #### M G, CMP #### [facility] [address] [place] [address] Dr. Doreen Betancourt WBC 6.8 103/ul Normal 4.0-11.0 [facility] Comment on above: Performed By: #### M G, CMP #### [facility] [address] [place] [address] Dr. Doreen Betancourt PROF CHEM 8 (BAS METB)on 10- 08-2022 Anion gap [Moles/Vol] 7.3 mmol/L Normal [facility] Comment on above: Performed By: #### M G, CMP #### [facility] [address] [place] [address] Dr. Doreen Betancourt Calcium [Mass/Vol] 8.8 mg/dL Normal 8.5-10.1 [facility] Comment on above: Performed By: #### M G, CMP #### [facility] [address] [place] [address] Dr. Doreen Betancourt Chloride [Moles/Vol] 105 mmol/L Normal 98-107 [facility] Comment on above: Performed By: #### M G, CMP #### [facility] [address] [place] [address] Dr. Doreen Betancourt CO2 [Moles/Vol] 27.8 mmol/L Normal 21.0-32.0 [facility] Comment on above: Performed By: #### M G, CMP #### [facility] [address] [place] [address] Dr. Doreen Betancourt Creatinine [Mass/Vol] 0.57 mg/dL Normal 0.55-1.02 [facility] Comment on above: Performed By: #### M G, CMP #### [facility] [address] [place] [address] Dr. Doreen Betancourt EGFR-AF DANISH >60 Normal >=60 [facility] Comment on above: Performed By: #### M G, CMP #### [facility] [address] [place] [address] Dr. Doreen Betancourt EGFR-NON AF DANISH >60 Normal >=60 [facility] Comment on above: Performed By: #### M G, CMP #### [facility] [address] [place] [address] Dr. Doreen Betancourt Glucose [Mass/Vol] 93 mg/dL Normal 74-106 [facility] Comment on above: Performed By: #### M G, CMP #### [facility] [address] [place] [address] Dr. Doreen Betancourt Potassium [Moles/Vol] 4.1 mmol/L Normal 3.5-5.1 [facility] Comment on above: Performed By: #### M G, CMP #### [facility] [address] [place] [address] Dr. Doreen Betancourt Sodium [Moles/Vol] 136 mmol/L Normal 136-145 [facility] Comment on above: Performed By: #### M G, CMP #### [facility] [address] [place] [address] Dr. Doreen Betancourt Urea nitrogen [Mass/Vol] 5.0 mg/dL Critically low 7.0-18.0 [facility] Comment on above: Performed By: #### M G, CMP #### [facility] [address] [place] [address] Dr. Doreen Betancourt Urea nitrogen/Creatinine [Mass ratio] 8.8 mg/mg Normal [facility] Comment on above: Performed By: #### M G, CMP #### [facility] [address] [place] [address] Dr. Doreen Betancourt PROF CHEM 8 (BAS METB)on Anion gap [Moles/Vol] 9.6 mmol/L Normal [facility] Comment on above: Performed By: #### C VDTBH #### [facility] [address] [place] [address] Dr. Doreen Betancourt Calcium [Mass/Vol] 8.8 mg/dL Normal 8.5-10.1 [facility] Comment on above: Performed By: #### C VDTBH #### [facility] [address] [place] [address] Dr. Doreen Betancourt Chloride [Moles/Vol] 101 mmol/L Normal 98-107 [facility] Comment on above: Performed By: #### C VDTBH #### [facility] [address] [place] [address] Dr. Doreen Betancourt CO2 [Moles/Vol] 26.8 mmol/L Normal 21.0-32.0 [facility] Comment on above: Performed By: #### C VDTBH #### [facility] [address] [place] [address] Dr. Doreen Betancourt Creatinine [Mass/Vol] 0.53 mg/dL Critically low 0.55-1.02 [facility] Comment on above: Performed By: #### C VDTBH #### [facility] [address] [place] [address] Dr. Doreen Betancourt EGFR-AF DANISH >60 Normal >=60 [facility] Comment on above: Performed By: #### C VDTBH #### [facility] [address] [place] [address] Dr. Doreen Betancourt EGFR-NON AF DANISH >60 Normal >=60 [facility] Comment on above: Performed By: #### C VDTBH #### [facility] [address] [place] [address] Dr. Doreen Betancourt Glucose [Mass/Vol] 122 mg/dL Critically high 74-106 T [facility] Comment on above: Performed By: #### C VDTBH #### [facility] [address] [place] [address] Dr. Doreen Betancourt Potassium [Moles/Vol] 3.4 mmol/L Critically low 3.5-5.1 [facility] Comment on above: Performed By: #### C VDTBH #### [facility] [address] [place] [address] Dr. Doreen Betancourt Sodium [Moles/Vol] 134 mmol/L Critically low 136-145 Th [facility] Comment on above: Performed By: #### C VDTBH #### [facility] [address] [place] [address] Dr. Doreen Betancourt Urea nitrogen [Mass/Vol] 6.0 mg/dL Critically low 7.0-18.0 [facility] Comment on above: Performed By: #### C VDTBH #### [facility] [address] [place] [address] Dr. Doreen Betancourt Urea nitrogen/Creatinine [Mass ratio] 11.3 mg/mg Normal [facility] Comment on above: Performed By: #### C VDTBH #### [facility] [address] [place] [address] Dr. Doreen Betancourt CBC AUTO DIFFon 04-11-2022 BASO # 0.0 103/ul Normal 0.0-0.1 [facility] Comment on above: Performed By: #### M G, CMP #### [facility] [address] [place] [address] Dr. Doreen Betancourt Basophils/100 WBC (Bld) 0.1 % Critically low 0.2-2.0 [facility] Comment on above: Performed By: #### M G, CMP #### [facility] [address] [place] [address] Dr. Doreen Betancourt EO # 0.0 103/ul Normal 0.0-0.7 [facility] Comment on above: Performed By: #### M G, CMP #### [facility] [address] [place] [address] Dr. Doreen Betancourt Eosinophils/100 WBC (Bld) 0.0 % Critically low 0.9-7.0 [facility] Comment on above: Performed By: #### Gay Martino, CMP #### [facility] [address] [place] [address] Dr. Doreen Betancourt Erythrocyte distribution width (RBC) [Ratio] 13.0 % Normal 11.0-15.0 [facility] Comment on above: Performed By: #### M Salena, CMP #### [facility] [address] [place] [address] Dr. Doreen Betancourt Hematocrit (Bld) [Volume fraction] 35.6 % Critically low 36.0-48.0 [facility] Comment on above: Performed By: #### M Salena, CMP #### [facility] [address] [place] [address] Dr. Doreen Betancourt Hemoglobin (Bld) [Mass/Vol] 11.5 g/dL Critically low 12.0-16.0 [facility] Comment on above: Performed By: #### M G, CMP #### [facility] [address] [place] [address] Dr. Doreen Betancourt IG # 0.02 10e3/ul Normal 0.00-0.03 [facility] Comment on above: Performed By: #### M G, CMP #### [facility] [address] [address] [address] Doreen Betancourt IG % 0.2 % Normal 0.0-0.5 [facility] Comment on above: Performed By: #### M G, CMP #### [facility] [address] [place] [address] Dr. Doreen Betancourt LYMPH # 1.3 103/ul Normal 1.2-3.8 [facility] Comment on above: Performed By: #### M G, CMP #### [facility] [address] [place] [address] Dr. Doreen Betancourt Lymphocytes/100 WBC (Bld) 12.4 % Critically low 20.5-60.0 [facility] Comment on above: Performed By: #### M G, CMP #### [facility] [address] [place] [address] Dr. Doreen Betancourt MANUAL DIFF REQ NO Normal [facility] Comment on above: Performed By: #### M G, CMP #### [facility] [address] [place] [address] Dr. Doreen Betancourt MCH (RBC) [Entitic mass] 29.9 pg Normal 26.7-34.0 [facility] Comment on above: Performed By: #### M G, CMP #### [facility] [address] [place] [address] Dr. Doreen Betancourt MCHC (RBC) [Mass/Vol] 32.3 g/dL Normal 29.9-35.2 [facility] Comment on above: Performed By: #### M G, CMP #### [facility] [address] [place] [address] Dr. Doreen Betancourt MCV (RBC) [Entitic vol] 92.7 fL Normal 81.0-99.0 [facility] Comment on above: Performed By: #### M G, CMP #### [facility] [address] [place] [address] Dr. Doreen Betancourt MONO # 0.9 103/ul Critically high 0.3-0.8 [facility] Comment on above: Performed By: #### M G, CMP #### [facility] [address] [place] [address] Dr. Doreen Betancourt Monocytes/100 WBC (Bld) 8.8 % Normal 1.7-12.0 [facility] Comment on above: Performed By: #### M G, CMP #### [facility] [address] [place] [address] Dr. Doreen Betancourt NEUT # 8.3 103/ul Critically high 1.4-6.5 [facility] Comment on above: Performed By: #### M G, CMP #### [facility] [address] [place] [address] Dr. Doreen Betancourt Neutrophils/100 WBC (Bld) 78.5 % Critically high 43.0-75.0 [facility] Comment on above: Performed By: #### M G, CMP #### [facility] [address] [place] [address] Dr. Doreen Betancourt Platelet mean volume (Bld) [Entitic vol] 10.6 fL Normal 9.5-13.5 [facility] Comment on above: Performed By: #### M G, CMP #### [facility] [address] [place] [address] Dr. Doreen Betancourt PLT 218 103/ul Normal 150-450 [facility] Comment on above: Performed By: #### M G, CMP #### [facility] [address] [place] [address] Dr. Doreen Betancourt RBC 3.84 106/ul Critically low 4.20-5.40 [facility] Comment on above: Performed By: #### M G, CMP #### [facility] [address] [place] [address] Dr. Doreen Betancourt WBC 10.6 103/ul Normal 4.0-11.0 [facility] Comment on above: Performed By: #### M G, CMP #### [facility] [address] [place] [address] Dr. Doreen Betancourt PROF CHEM 8 (BAS METB)on Anion gap [Moles/Vol] 9.4 mmol/L Normal [facility] Comment on above: Performed By: #### M G, CMP #### [facility] [address] [address] [address] Doreen Betancourt Calcium [Mass/Vol] 8.4 mg/dL Critically low 8.5-10.1 Th [facility] Comment on above: Performed By: #### M G, CMP #### [facility] [address] [address] [address] Doreen Betancourt Chloride [Moles/Vol] 105 mmol/L Normal 98-107 [facility] Comment on above: Performed By: #### M G, CMP #### [facility] [address] [place] [address] Dr. Doreen Betancourt CO2 [Moles/Vol] 25.1 mmol/L Normal 21.0-32.0 [facility] Comment on above: Performed By: #### M G, CMP #### [facility] [address] [place] [address] Dr. Doreen Betancourt Creatinine [Mass/Vol] 0.50 mg/dL Critically low 0.55-1.02 [facility] Comment on above: Performed By: #### M G, CMP #### [facility] [address] [place] [address] Dr. Doreen Betancourt EGFR-AF DANISH >60 Normal >=60 [facility] Comment on above: Performed By: #### M G, CMP #### [facility] [address] [place] [address] Dr. Doreen Betancourt EGFR-NON AF DANISH >60 Normal >=60 [facility] Comment on above: Performed By: #### M G, CMP #### [facility] [address] [place] [address] Dr. Doreen Betancourt Glucose [Mass/Vol] 114 mg/dL Critically high 74-106 [facility] Comment on above: Performed By: #### M G, CMP #### [facility] [address] [place] [address] Dr. Doreen Betancourt Potassium [Moles/Vol] 3.5 mmol/L Normal 3.5-5.1 [facility] Comment on above: Performed By: #### M G, CMP #### [facility] [address] [place] [address] Dr. Doreen Betancourt Sodium [Moles/Vol] 136 mmol/L Normal 136-145 [facility] Comment on above: Performed By: #### M G, CMP #### [facility] [address] [place] [address] Dr. Doreen Betancourt Urea nitrogen [Mass/Vol] 6.0 mg/dL Critically low 7.0-18.0 [facility] Comment on above: Performed By: #### M G, CMP #### [facility] [address] [place] [address] Dr. Doreen Betancourt Urea nitrogen/Creatinine [Mass ratio] 12.0 mg/mg Normal [facility] Comment on above: Performed By: #### M G, CMP #### [facility] [address] [place] [address] Dr. Doreen Betancourt CBC AUTO DIFFon 04-08-2022 BASO # 0.1 103/ul Normal 0.0-0.1 [facility] Comment on above: Performed By: #### M G, CMP #### [facility] [address] [place] [address] Dr. Doreen Betancourt Basophils/100 WBC (Bld) 0.8 % Normal 0.2-2.0 [facility] Comment on above: Performed By: #### M G, CMP #### [facility] [address] [place] [address] Dr. Doreen Betancourt EO # 0.1 103/ul Normal 0.0-0.7 [facility] Comment on above: Performed By: #### M G, CMP #### [facility] [address] [place] [address] Dr. Doreen Betancourt Eosinophils/100 WBC (Bld) 1.8 % Normal 0.9-7.0 [facility] Comment on above: Performed By: #### M G, CMP #### [facility] [address] [place] [address] Dr. Doreen Betancourt Erythrocyte distribution width (RBC) [Ratio] 13.0 % Normal 11.0-15.0 [facility] Comment on above: Performed By: #### M G, CMP #### [facility] [address] [place] [address] Dr. Doreen Betancourt Hematocrit (Bld) [Volume fraction] 42.1 % Normal 36.0-48.0 [facility] Comment on above: Performed By: #### M G, CMP #### [facility] [address] [place] [address] Dr. Doreen Betancourt Hemoglobin (Bld) [Mass/Vol] 13.4 g/dL Normal 12.0-16.0 [facility] Comment on above: Performed By: #### M G, CMP #### [facility] [address] [place] [address] Dr. Doreen Betancourt IG # 0.02 10e3/ul Normal 0.00-0.03 [facility] Comment on above: Performed By: #### M G, CMP #### [facility] [address] [place] [address] Dr. Doreen Betancourt IG % 0.3 % Normal 0.0-0.5 [facility] Comment on above: Performed By: #### M G, CMP #### [facility] [address] [place] [address] Dr. Doreen Betancourt LYMPH # 2.1 103/ul Normal 1.2-3.8 [facility] Comment on above: Performed By: #### M G, CMP #### [facility] [address] [place] [address] Dr. Doreen Betancourt Lymphocytes/100 WBC (Bld) 31.6 % Normal 20.5-60.0 [facility] Comment on above: Performed By: #### M G, CMP #### [facility] [address] [place] [address] Dr. Doreen Betancourt MANUAL DIFF REQ NO Normal [facility] Comment on above: Performed By: #### M G, CMP #### [facility] [address] [place] [address] Dr. Doreen Betancourt MCH (RBC) [Entitic mass] 30.2 pg Normal 26.7-34.0 [facility] Comment on above: Performed By: #### M G, CMP #### [facility] [address] [place] [address] Dr. Doreen Betancourt MCHC (RBC) [Mass/Vol] 31.8 g/dL Normal 29.9-35.2 [facility] Comment on above: Performed By: #### M G, CMP #### [facility] [address] [place] [address] Dr. Doreen Betancourt MCV (RBC) [Entitic vol] 95.0 fL Normal 81.0-99.0 [facility] Comment on above: Performed By: #### M G, CMP #### [facility] [address] [place] [address] Dr. Doreen Betancourt MONO # 0.4 103/ul Normal 0.3-0.8 [facility] Comment on above: Performed By: #### M G, CMP #### [facility] [address] [place] [address] Dr. Doreen Betancourt Monocytes/100 WBC (Bld) 6.2 % Normal 1.7-12.0 [facility] Comment on above: Performed By: #### M G, CMP #### [facility] [address] [place] [address] Dr. Doreen Betancourt NEUT # 3.9 103/ul Normal 1.4-6.5 [facility] Comment on above: Performed By: #### M G, CMP #### [facility] [address] [place] [address] Dr. Doreen Betancourt Neutrophils/100 WBC (Bld) 59.3 % Normal 43.0-75.0 [facility] Comment on above: Performed By: #### M G, CMP #### [facility] [address] [place] [address] Dr. Doreen Betancourt Platelet mean volume (Bld) [Entitic vol] 10.2 fL Normal 9.5-13.5 [facility] Comment on above: Performed By: #### M G, CMP #### [facility] [address] [place] [address] Dr. Doreen Betancourt PLT 276 103/ul Normal 150-450 [facility] Comment on above: Performed By: #### M G, CMP #### [facility] [address] [address] [address] Doreen Betancourt RBC 4.43 106/ul Normal 4.20-5.40 [facility] Comment on above: Performed By: #### M G, CMP #### [facility] [address] [address] [address] Doreen Betancourt WBC 6.6 103/ul Normal 4.0-11.0 [facility] Comment on above: Performed By: #### M G, CMP #### [facility] [address] [place] [address] Dr. Doreen Betancourt Covid-19 PCR ([facility])on SARS-CoV-2 (COVID-19) RNA MARIVEL+probe Ql (Unsp spec) Not detected Normal NOT DETECTED [facility] Comment on above: Result Comment: When [...] for this test is supported by the [place] [employer] of Health and Human Service's declaration that [...] By: #### M G, CMP #### [facility] [address] [place] [address] Dr. Doreen Betancourt TYPE AND SCREENon 04-08-2022 TYPE AND SCREEN Negative Normal [facility] Comment on above: Performed By: #### M G, CMP #### [facility] [address] [place] [address] Dr. Doreen Betancourt CEAon 2022 CEA 4.9 ng/mL Critically high 0.0-4.7 [facility] Comment on above: Result Comment: Nons mokers <3.9 Smokers <5.6 . [employer] Electrochemiluminescence Immunoassay (ECLIA) . Values obtained with different assay methods or kits cannot be used interchangeably. Results cannot be interpreted as absolute evidence of the presence or absence of malignant disease. Performed By: #### M G, CMP #### [facility] [address] [place] [address] Dr. Doreen Betancourt PROF 14(COMP METB)on 022 Albumin [Mass/Vol] 3.6 g/dL Normal 3.4-5.0 [facility] Comment on above: Performed By: #### M G, CMP #### [facility] [address] [place] [address] Dr. Doreen Betancourt Albumin/Globulin [Mass ratio] 1.1 {ratio} Normal [facility] Comment on above: Performed By: #### M G, CMP #### [facility] [address] [place] [address] Dr. Doreen Betancourt ALP [Catalytic activity/Vol] 76 U/L Normal 46-116 [facility] Comment on above: Performed By: #### M Salena, CMP #### [facility] [address] [place] [address] Dr. Doreen Betancourt ALT [Catalytic activity/Vol] 18 U/L Normal 14-59 [facility] Comment on above: Performed By: #### M G, CMP #### [facility] [address] [place] [address] Dr. Doreen Betancourt Anion gap [Moles/Vol] 12.7 mmol/L Normal [facility] Comment on above: Performed By: #### M G, CMP #### [facility] [address] [place] [address] Dr. Doreen Betancourt AST [Catalytic activity/Vol] 15 U/L Normal 15-37 [facility] Comment on above: Performed By: #### M G, CMP #### [facility] [address] [place] [address] Dr. Doreen Betancourt Bilirubin [Mass/Vol] 0.3 mg/dL Normal 0.2-1.0 [facility] Comment on above: Performed By: #### M G, CMP #### [facility] [address] [address] [address] Doreen Betancourt Calcium [Mass/Vol] 8.8 mg/dL Normal 8.5-10.1 [facility] Comment on above: Performed By: #### M G, CMP #### [facility] [address] [place] [address] Dr. Doreen Betancourt Chloride [Moles/Vol] 104 mmol/L Normal 98-107 [facility] Comment on above: Performed By: #### M G, CMP #### [facility] [address] [place] [address] Dr. Doreen Betancourt CO2 [Moles/Vol] 25.5 mmol/L Normal 21.0-32.0 [facility] Comment on above: Performed By: #### M G, CMP #### [facility] [address] [place] [address] Dr. Doreen Betancourt Creatinine [Mass/Vol] 0.61 mg/dL Normal 0.55-1.02 [facility] Comment on above: Performed By: #### M G, CMP #### [facility] [address] [place] [address] Dr. Doreen Betancourt EGFR-AF DANISH >60 Normal >=60 [facility] Comment on above: Performed By: #### M G, CMP #### [facility] [address] [place] [address] Dr. Doreen Betancourt EGFR-NON AF DANISH >60 Normal >=60 [facility] Comment on above: Performed By: #### M G, CMP #### [facility] [address] [place] [address] Dr. Doreen Betancourt Globulin (S) [Mass/Vol] 3.3 g/dL Normal [facility] Comment on above: Performed By: #### M G, CMP #### [facility] [address] [address] [address] Doreen Betancourt Glucose [Mass/Vol] 93 mg/dL Normal 74-106 [facility] Comment on above: Performed By: #### M G, CMP #### [facility] [address] [place] [address] Dr. Doreen Betancourt Potassium [Moles/Vol] 4.2 mmol/L Normal 3.5-5.1 [facility] Comment on above: Performed By: #### M G, CMP #### [facility] [address] [place] [address] Dr. Doreen Betancourt Protein [Mass/Vol] 6.9 g/dL Normal 6.4-8.2 [facility] Comment on above: Performed By: #### M G, CMP #### [facility] [address] [place] [address] Dr. Doreen Betancourt Sodium [Moles/Vol] 138 mmol/L Normal 136-145 [facility] Comment on above: Performed By: #### M G, CMP #### [facility] [address] [place] [address] Dr. Doreen Betancourt Urea nitrogen [Mass/Vol] 17.0 mg/dL Normal 7.0-18.0 [facility] Comment on above: Performed By: #### M G, CMP #### [facility] [address] [place] [address] Dr. Doreen Betancourt Urea nitrogen/Creatinine [Mass ratio] 27.9 mg/mg Normal [facility] Comment on above: Performed By: #### M G, CMP #### [facility] [address] [place] [address] ABD/PELV W CONon [...] COULTER Date: 2022-03-27 17:13 Normal [facility] Covid-19 PCR (CVDTB)on SARS-CoV-2 (COVID-19) RNA MARIVEL+probe Ql (Unsp spec) Not detected Normal NOT DETECTED [facility] Comment on above: Result Comment: This test is not yet approved or cleared by the [place] FDA. When there are no FDA-approved or cleared tests available, and other criteria are met, FDA can make tests available under an emergency access mechanism called an Emergency Use Authorization (EUA). The EUA for this test is supported by the [place] [employer] of Health and Human Service's (HHS's) declaration [...] with SARS-CoV-2. Performed By: #### M G, [facility] #### [facility] [address] [address] ABD/PELV W CONon [...] COULTER Date: 2022-01-09 17:53 Normal [facility] Coding Summaryon 05-01-2021 Coding Summary HTMLBase 64 WbhmqotbOTt0sQc+PGhlYWQ+PE 7GQONqQ12esTEwiR7VG7sSEK8A NGLACOZMYT4FAU9czAN4MRhzP2 VybiAv NnwvlGXyNI10ITx8EOT8oKayFO efpS7vlVOrV2a5GjCkOJ26uN25 YEjoWNEfOxF2WcCjrkxlvQQy Q4vqHgCnzAFjWrb+PHRhYmxlIH gkHDFgTHtmCOScKfBfoQrnSU9b Se7aKFCzZKEanPjdfIKrFbSs y9zeJTRxOCnmDC4idHtgV3AyoX H1NBIyp0r3Sr70aCL+PHRkIHN0 mTpuSXeti037EuZng1mlNVQ2 pCVbLYuqLBI2K74ya5I2YJSaQB QyVVS1bIR4pZ6mqHbkzysxZ7Do fEQkLqD8VMO4tSYpaG8dqUji gngsbV2dIfk+P72YIM2MVFYQCJ 2QHxw3G3OpTopnuWW+JA16OQBd IO39sLTyxQViz1szaIg7NwKe BEClXXP8rUnjUVbmn1SbPOLuX4 7igJMfu8E8KFFidNhjeWRyPvVi rAT2kH4jKXhnjukgq6trxrki Tbrjs1gcqg74cQ11T53vXFrrZX UoXUE9IVMvZIDtyGqriv8laX6m Ii8+NSjyb7xhu6myfBn1KoJg WTNnsyUuxFrjZXY3q8ZqXi84E2 QjoJsjo0MtFhm8nl68aXAbf0P9 jIQ6RXdpHJGdtS1wTFogUqQ4 BPJbAhYiuX99aRSsMLfvKe3nqF gghHimUR7sYVArzqbrXCFlcU8x RRFhpNFpjCbqOJ5cQDKxfmap k941UyWtYLZ1UOVwvRBoX8EhtR 7wCsAyZZWqOEIgD3CexNErEVmw A870CTduIqI8ERCxrqKhC0Uj NICioBdyQsL5s9X9Kc5Ji6Anre ooBJB6MPftSLRgZeD1SzTbKxW8 M4GuVgu1YUXpqLvrTQ7yI7Lf GQNpohordiqmdVI2FBHuBSMoyD 43nVImQNuvJn6ks1M0a635WJOd RWSnwD50On3dlVwgJOXnySJP zB5pjimun2fqvyfyWqAuMRKuLS w8JGg8OCIocZurSzAfIBP0ZzK3 RTN7hMDdlT6utKkbwngkwV6e Oyc+G49glS7wHMV4DAJ8mfnxOG XisdHmNU66MG84N3GdXqlalVRp bGU+WJFhkkYbiPdeTD0cPkRs b7exs9NqPPkpB5VdIVRyYQdoRe b2ERSoBGT0hVG9qE2lRVDaLXwe n7X8cRU0P9CsjrYupc2pb1zi QKMbUMiiC28uhMWbr6K2RKBaiE O4QIXhaFbsBgTjsE76Iah+PGNv qOino1YjWjaii8uuq0annZy1 LzIsOMUdemBggOzpQTR7p6UeTx 96I22zDVxyUUIdURQeBZMbGBHs uCkbqm7htA1aUw2+PGNvbCB3 eNM7eG7dOCBjMvF2YOzhF331Da OlkOWyVvjfl7qym8ocoIp2YyNs MIObzzGfyRwhCWT2s4WbVy40 K49vDHkcRQXjQHRtJODiVIEfuK glqe8crT1cCg5+OP9nd1kfum47 cD46hZQ+ZAHrDMO4yWvzKRvv FRYpoI1hWAxwEkZ4HCNuCeMbeE 15fGFxGYylEi4nqYnarPblCF2n KZWynvmdn656WqKbv5rqHNUa hFHuJGncLYN8O03bd6B4VWThXN MtWZG5iUW3fT6wpOjqczwphEMr wWfviyGtiJjyFRlzCTjhR227 IHRvcDsnPlBhdGllbnQgTmFtZT d3N0JuFri3ERDanDbsYI0vnIVb YGcrNj5buBirwBbxFG7iFXVa ryqnl240DkBcc3smZSYkvMVyVC lmCTZ3I00we5V2GVHcWQFmWBM9 cUX7yK5yyTnxknrshXLtqHtc dxNijErmNJuiFOhzP593SPQbzF kiSsDndzQxRNJfaXB1CU57PW89 iBVxz5J4zLR8T7DiBVKsujwf yanwzHA0CDZsFSVwaA16Cz5vtF sqJp2jGZGxMZH9ICSrdLRvT9Ae rE8zSeUaNFEdGMPzE7ExjWVx XXnfZ918JZgvEpC5UCVjrfLiO0 YqZLDikNpnZyS3x1D0Pv8RX9H4 TA16MF95pUKlp4N4kDA6V6Ea WERshemsmpupqVQ2BRZcBGZqfB 32Yz3kbIkkEu3gYODuQGJ1LHBd jGWsJ1IbfB3hLnCxWGRjFYPt O5NwsKOqEWyvP205GMguOsG8PB EgyxAtP9FmQMFkaYchCrU5p9R5 Pp7VSPw3BZ85KL87bQUsr5H0 tWM3T2VsLXQrubebqyjdbWR3ZZ PpPFLcxU72Zq3twQmaFd1rSKZj IJD8OKJaqMIaP0MkyB7zQcLe UHNgRZAwE6JaeHCbOHlxQ548MB veRqG9GKHqilBeK0KuYOZivMni YoA2u3R0Oe6ELAByKH99STI7 cYA9JA47ND74V2KhDlhmdYHakM U+PHRhYmxlIHdpZHRoPScxMDAl TqOrdBigDG3pHt7sRGVyHUXn cOhuyZEmAwZye3jiHESaSUbeFY 6wdHgkJ5PczDC5RCTco0w7Iv83 P90bM6CylXT+AESxhCO4jRO4 rC5mWmZgCgH8CHitV069HzIdgP KzKzkpp0rxr3uqmWd9UhF5GOUl upBmfJemJWP6q0HyNt88F06e IHdpZHRoPSIxNSUiIHZhbGlnbj 6umF5yEs3+WQKidGW0xND4gG4x AeMgRhO6FIzlK475PhFrxOFu Fzupd9hqd4zzhVy1HuTiVGQdzt CjbWpjIPK3a8HiUf36C8BcbDqe r2YsEdv6bb22kOQpl1M8wWX0 H6PuJLBrwjwepKKclFanOJ9zEP WdjzhoJYVjjR9dLUOxT3j0MnBo UlS9WOchB1UnitZ9MGTudVDf EVftDTH0M59zt0U9VGPgCNEfBO Z9dFT8yD5bzBunzzhgnUBjyWnm uhXimRjvLQcuTThlR902KCYu yEkhOBUbgO5gUPPpmBShzAouQH 4wNTBpbjsnPlBFVElUVEksIEpV RElUSDwvdGQ+IFWyMPI2pQwj CUsnSNBbjD0zMUOzX0f9AiUwWd U0SKyeX4KvGXNpezatZd91uZ5e MoJcIhF0NMdeI5XxfdH0HFFk uIOdRQcsJXO3O22am9U8DSPrVY ClJXB1pDP6yC9sxRshwhasfHLw vYhwxpKzwIfnNKpoPOeiS930 CIHtqObjQrW1RqC4RgM9GbL3P6 AbJij8QLQaaWefTD8jtCInUSje Zt5nbHcxfGqsFR4dAWXjsrmo KTSiaG5zVHHvtUYzsWlvND7nYP Vmisklw649DpNoGEF8SLRisLVu G4LviB3wXcVlCZIsLEMuE9Yu jFXsQUkzP700LDduDtC7ULKcil WcH1KvKUUgcQydRnN4n6T8Ei96 NSBZZWFyczwvdGQ+PHRkIHN0 eLwzUHbqCDGiuX8vBHHoJ6x2Vb GtIxI8BFguK5ToRGDqsokqDv08 dX0jCmJtOkI8WAnvC0AlayU6 CBZlmQEyOTxlZIB4T16qe4A6ZA NtIYTwUJS9dZC6uE3gbUfpdrot bGVmdDsgdmVydGljYWwtYWxp H324SREjxIkvTxTRUJDUFBpqqZ Q+USDfVCW4bGvzRCiuKYMkgT0i CWCjU4w3ZqXmQjA1VEdoM8Ap GHUpjojhLx68zD9jTiKtWiS8XT cvD3OtanZ5KZWuqWAdGTfwWVQ9 N27sn8R9OYNxNKFoRJJ7sFD2 mQ7rlQrydwdghDOpbIgxpkLriL fsDOdjHWvhI492BLKybKzcWe0O IB05SO05K2GyZhhzyICjmPX+ PHRhYmxlIHdpZHRoPScxMDAlJy YgdClkJC4bJx8zCUZeRNQmxKwk kHBqUhPvr0hyQNDnYXuhEH5s mVfwV6SgdZO0PRIsc3o4Hy35K2 9uG9FafPD+HGOhxLZ5eQO2xG7j PcQkSuS9FGplK063AcPlsYKe Vjxec7yvs9qyqPo5QdAcKDQizm WhfChaNFD6i8YnVn48W13uBSaz XXZlBKLnJDZeDONwyLxjvn3b aU9fOw6+ZHDjqCI5iKD4uE1vZt HlWeE1JQufP807BaHdbMReGjfk K24hK7AezLN+ONLkDzl6ZVUw nOiwGM0frVTjHWeqIc7sVZL7Ib IrVhTfVQmjW4PpISFcxzulwtvl uZQ2IZYfCPAowU31Mt4ntBpc Li2iTLVsMEF4LALrjCKyL6IpxR 5jNnRxHZCeRVBkI2HmgQGbHSlu T539AOudWkN4RALpklGpX1Cu OVJgnEfvOtD6p8M1Ue6JdAmegQ WjDT1rLfIxGLv6R2AfCfn9FIHt nDrwRW5daEByIMvxCf2itHck nLokAD4bTRIejktwd861NsAdf4 cmNOHtxUXkQXkuZEP1E94jq5L8 RFAjUAWcMTN8gDP4cY2mxLnc bjogbGVmdDsgdmVydGljYWwtYW wbS658BVJkyApgZpZGEnd0T5Yh Egv9HWSpmNvwST4pzNPtWOsp Bu2weWreoHseWR7mKQDpkdoqx5 07WqGkm7mtVNDcvDOuJJifLZN2 M16gv0V6EQQdIJThEFH6kGB5 oN7dsSuomuaoxYMfsSycdcRodO sgTUpfJZbdG864QBRjuVpnNm8U Auv4Y1UdDjd1LCEzhZycWN9i eWAlEExfQg9omKfdyXwbLR5kCZ Dglkiaj320VzRxr7ryVUXinRAo OYslXQF0O29gp9Q1VQGhXQCr XBS6rOI4lA3jtPfckgidkFScfD malwAthJkiOCoiFMqvD932BYDg cDsnPlBheWVyOjwvdGQ+PC90 jp64B7MeUggeGut5LNPmTPK1jM G1fG1uIVLrYOijg8I9pYX4C3Ph nqKpjn2ks4sbHGZmCEskC30j bGF (more content not included)... [facility] ED Clinical Summaryon 2020 ED Clinical Summary [facility] ? Urgent Care [address] [place] [address] [id number] Clinical Summary PERSON INFORMATION Name: MARYSOL GARDNER Age: 56 Years Sex: FEMALE : 1965 MRN: Acct#: Visit Reason: Wrist laceration; LEFT WRIST LAC Arrival: 04/21/2021 17:52:39 Discharge: 04/21/2021 18:47:00 LOS: 000 00:55 Check In: 04/21/2021 17:52:39 Checkout: 04/21/2021 18:47:00 Address: [address] [place] [address] PCP: Sandro Chin MD PROVIDER INFORMATION Provider [...] PATIENT EDUCATION INFORMATION Instructions: Laceration Care, Adult, [id number] Follow-Up: With: Address: When: Sandro Chin [address] [place] [address] [place] [address] Business (1) Within 3 to 5 days Comments: Please follow-up with Dr. Chin, call the office schedule an appointment to be seen in 3 to 5 days for wound check, please take your Augmentin as prescribed, keep the wound clean, apply bacitracin and keep it covered, have sutures removed in 10 to 12 days from today, take dznw-jkw-oedvfun pain medication as needed, and return back to the urgent care center for any worsening symptoms, concerns, or complications. DIAGNOSIS: 1:Laceration of left wrist Patient Understands: Yes - Patient/family/caregiver verbalizes understanding of instructions given Comment: Normal [facility] ED Patient Summaryon 021 ED Patient Summary [facility] ? Urgent Care [address] [place] [address] [id number] PATIENT DISCHARGE INSTRUCTIONS Patient Information Name: MARYSOL GARDNER Age: 56 Years Date of : 1965 [facility]: [id number] Reason For Visit: Wrist laceration; LEFT WRIST LAC Arrival Time: 04/21/2021 17:52:39 Primary Care Physician: Sandro Chin MD Attending Physician: Leo Art PA-C Comment: Patient Education With: Address: When: Sandro Chin [address] [place] [address], [facility] [address] Business (1) Within 3 to 5 days Comments: Please follow-up with Dr. Chin, call the office schedule an appointment to be seen in 3 to 5 days for wound check, please take your Augmentin as prescribed, keep the wound clean, apply bacitracin and keep it covered, have sutures removed in 10 to 12 days from today, take rtmh-zaq-hselwzx pain medication as needed, and return back [...] needed: ? Soap. ? Water. ? Hand electronic systems technician. ? Bandage (dressing). ? Antibiotic ointment. ? Clean towel. How to take care of your cut Wash your hands with soap and water before touching your wound or changing your bandage. If soap and water are not available, use hand electronic systems technician. If your doctor used stitches or [...] off the skin. General instructions ? Take qwaj-zdi-kaaofvx and prescription medicines only as told by [...] by your doctor (more content not included)... [facility] Progress Note - Nurseon 04-06 Progress Note - Nurse sutured wound irma kristopher, bacitracin applied and a bandage, pt tolerated well [Electronically Signed on: 04/21/2021 18:57 EDT] Lauren Boyer [Verified on: 04/21/2021 18:57 EDT] Lauren Boyer [facility] [address] Urgent Care Record [facility] ? Urgent Care [address] [id number] PATIENT DISCHARGE INSTRUCTIONS Patient Information Name: MARYSOL GARDNER Age: 56 Years Date of : 1965 Reason For Visit: Wrist laceration; LEFT WRIST LAC Arrival Time: 04/21/2021 17:52:39 Primary Care Physician: Sandro Chin MD Attending Physician: Leo Art PA-C Comment: Visit Diagnosis: Diagnoses This Visit Laceration of left wrist (S61.512A) Wrist laceration ([id number]) If you received any narcotics, sedation, or [...] legal documents With: Address: When: Sandro Chin [address] [place] [address], [facility] [place] [address] Business (1) Within 3 to 5 days Comments: Please follow-up with Dr. Chin, call the office schedule an appointment to be seen in 3 to 5 days for wound check, please take your Augmentin as prescribed, keep the wound clean, apply bacitracin and keep it covered, have sutures removed in 10 to 12 days from today, take stih-wzh-aucswzi pain medication as needed, and return back to the urgent care center for any worsening symptoms, concerns, or complications. Medication Information: The exam and treatment you received today in the [facility] were for an urgent problem and are not intended as complete care. It is important for you to follow up with a doctor, nurse practitioner, or physician?s technical staff assistant for ongoing care. If your symptoms [...] so we can reach you if necessary. [facility] has provided you with a complete list of medications post discharge. Please inform your licensed practical nurse instructor/provider of your visit and for further instruction on these medications. Any specific questions regarding your chronic medications and dosages should be discussed with your primary care physician(s) and/or pharmacist. New Medications [facility], [address], [place] [id number], [phone] amoxicillin-clavulanate (Augmentin 875 mg-125 mg oral tablet) [...] needed: ? Soap. ? Water. ? Hand electronic systems technician. ? Bandage (dressing). ? Antibiotic ointment. ? Clean towel. How to take care of your cut Wash your hands with soap and water before touching your wound or changing your bandage. If soap and water ar (more content not included)... Normal [facility] Vital Signs Date Time Vital Sign Value Performing Clinician Facility 04-04-2025 13:13-0400 Body temperature 97.7 [degF] Sandro Chin MD Work Phone: [facility] 04-04-2025 13:13-0400 Body weight 72.57 kg Sandro Chin MD Work Phone: [facility] 04-04-2025 13:13-0400 Diastolic blood pressure 85 mm[Hg] Sandro Chin MD Work Phone: [facility] 04-04-2025 13:13-0400 Heart rate 69 /min Sandro Chin MD Work Phone: [facility] 04-04-2025 13:13-0400 Respiratory rate 16 /min Sandro Chin MD Work Phone: [facility] 04-04-2025 13:13-0400 SaO2% (BldA) [Mass fraction] 98 % Sandro Chin MD Work Phone: [facility] 04-04-2025 13:13-0400 Systolic blood pressure 131 mm[Hg] Sandro Chin MD Work Phone: [facility] 03-21-2025 13:10-0400 Body weight 73.93 kg Sandro Chin MD Work Phone: [facility] 03-21-2025 13:10-0400 Diastolic blood pressure 95 mm[Hg] Sandro Chin MD Work Phone: [facility] 03-21-2025 13:10-0400 Heart rate 69 /min Sandro Chin MD Work Phone: [facility] 03-21-2025 13:10-0400 Respiratory rate 20 /min Sandro Chin MD Work Phone: [facility] 03-21-2025 13:10-0400 SaO2% (BldA) [Mass fraction] 99 % Sandro Chin MD Work Phone: [facility] 03-21-2025 13:10-0400 Systolic blood pressure 156 mm[Hg] Sandro Chin MD Work Phone: [facility] 02-01-2025 09:55-0400 Diastolic blood pressure 58 mm[Hg] Sandro Chin MD Work Phone: [facility] 02-01-2025 09:55-0400 Heart rate 60 /min Sandro Chin MD Work Phone: [facility] 02-01-2025 09:55-0400 Respiratory rate 16 /min Sandro Chin MD Work Phone: [facility] 02-01-2025 09:55-0400 SaO2% (BldA) [Mass fraction] 98 % Sandro Chin MD Work Phone: [facility] 02-01-2025 09:55-0400 Systolic blood pressure 97 mm[Hg] Sandro Chin MD Work Phone: [facility] 02-01-2025 08:44-0400 Body height 162.56 cm Sandro Chin MD Work Phone: [facility] 02-01-2025 08:44-0400 Body weight 73.02 kg Sandro Chin MD Work Phone: [facility] 12-21-2024 08:32-0400 Body mass index (BMI) [Ratio] 27.29 kg/m2 Constantino Martinez MD Work Phone: [facility] 12-21-2024 08:32-0400 Body weight 72.12 kg Constantino Martinez MD Work Phone: [facility] 12-21-2024 08:32-0400 Diastolic blood pressure 101 mm[Hg] Constantino Martinez MD Work Phone: [facility] 12-21-2024 08:32-0400 Heart rate 68 /min Constantino Martinez MD Work Phone: [facility] 12-21-2024 08:32-0400 Systolic blood pressure 148 mm[Hg] Constantino Martinez MD Work Phone: [facility] 12-20-2024 10:41-0400 Body height 162.56 cm Sandro Chin MD Work Phone: [facility] 12-20-2024 10:41-0400 Body mass index (BMI) [Ratio] 27.6 kg/m2 Sandro Chin MD Work Phone: [facility] 12-20-2024 10:41-0400 Body weight 73.02 kg Sandro Chin MD Work Phone: [facility] 12-20-2024 10:41-0400 Diastolic blood pressure 85 mm[Hg] Sandro Chin MD Work Phone: [facility] 12-20-2024 10:41-0400 Heart rate 64 /min Sandro Chin MD Work Phone: [facility] 12-20-2024 10:41-0400 Systolic blood pressure 121 mm[Hg] Sandro Chin MD Work Phone: [facility] 12-14-2024 09:33-0400 Body height 162.56 cm [facility] 12-14-2024 09:33-0400 Body mass index (BMI) [Ratio] 27.6 kg/m2 [facility] 12-14-2024 09:33-0400 Body weight 73.08 kg [facility] 12-14-2024 09:33-0400 Diastolic blood pressure 87 mm[Hg] [facility] 12-14-2024 09:33-0400 Heart rate 58 /min [facility] 12-14-2024 09:33-0400 Systolic blood pressure 142 mm[Hg] [facility] 09-06-2024 12:58-0500 Body height 162.56 cm Clint Jean Baptiste DO Work Phone: [facility] 09-06-2024 12:58-0500 Body mass index (BMI) [Ratio] 28.8 kg/m2 Clint Jean Baptiste DO Work Phone: [facility] 09-06-2024 12:58-0500 Body temperature 97.5 [degF] Clint Alejandros DO Work Phone: [facility] 09-06-2024 12:58-0500 Body weight 76.2 kg Clint Monicoillis DO Work Phone: [facility] 09-06-2024 12:58-0500 Diastolic blood pressure 89 mm[Hg] Clint Marcillis DO Work Phone: [facility] 09-06-2024 12:58-0500 Heart rate 58 /min Clint Marcillis DO Work Phone: [facility] 09-06-2024 12:58-0500 Respiratory rate 16 /min Clint Marcillis DO Work Phone: [facility] 09-06-2024 12:58-0500 SaO2% (BldA) [Mass fraction] 99 % Clint Alejandros DO Work Phone: [facility] 09-06-2024 12:58-0500 Systolic blood pressure 139 mm[Hg] Clint Marcillis DO Work Phone: [facility] 07-01-2024 10:59-0500 Body height 162.56 cm Clint Alejandros DO Work Phone: [facility] 07-01-2024 10:59-0500 Body mass index (BMI) [Ratio] 28.8 kg/m2 Clint Marcillis DO Work Phone: [facility] 07-01-2024 10:59-0500 Body weight 76.2 kg Clint Marcillis DO Work Phone: [facility] 07-01-2024 10:59-0500 Diastolic blood pressure 84 mm[Hg] Clint Alejandros DO Work Phone: [facility] 07-01-2024 10:59-0500 Heart rate 64 /min Clint Alejandros DO Work Phone: [facility] 07-01-2024 10:59-0500 Systolic blood pressure 138 mm[Hg] Clint Jean Baptiste DO Work Phone: [facility] 03-25-2024 11:29-0400 Body height 162.6 cm aMsha Richardson LABORATORY SPECIALIST-IP [employer] Work Phone: [facility] 03-25-2024 11:29-0400 Body mass index (BMI) [Ratio] 27.5 kg/m2 Masha Richardson LABORATORY SPECIALIST-[employer] Work Phone: [facility] 03-25-2024 11:29-0400 Body weight 72.67 kg Masha Richardson LABORATORY SPECIALIST-[employer] Work Phone: [facility] 03-25-2024 11:29-0400 Diastolic blood pressure 60 mm[Hg] Masha Richardson LABORATORY SPECIALIST-[employer] Work Phone: [facility] 03-25-2024 11:29-0400 Heart rate 54 /min Masha Richardson LABORATORY SPECIALIST-[employer] Work Phone: [facility] 03-25-2024 11:29-0400 Systolic blood pressure 102 mm[Hg] Masha Richardson LABORATORY SPECIALIST-[employer] Work Phone: [facility] 03-15-2024 13:50-0400 Body height 162.6 cm Clint Jean Baptiste DO Work Phone: [facility] 03-15-2024 13:50-0400 Body mass index (BMI) [Ratio] 27.46 kg/m2 Clint Jean Baptiste DO Work Phone: [facility] 03-15-2024 13:50-0400 Body weight 72.58 kg Clint Jean Baptiste DO Work Phone: [facility] 03-03-2024 10:26-0400 Body height 162.6 cm Clint Jean Baptiste DO Work Phone: [facility] 03-03-2024 10:26-0400 Body mass index (BMI) [Ratio] 27.46 kg/m2 Clint Jean Baptiste DO Work Phone: [facility] 03-03-2024 10:26-0400 Body weight 72.58 kg Clint Jean Baptiste DO Work Phone: [facility] 01-19-2024 11:22-0400 Body height 162.56 cm DO Clint Flavias Work Phone: [facility] 01-19-2024 11:22-0400 Body mass index (BMI) [Ratio] 28.8 kg/m2 DO Clint Flavias Work Phone: [facility] 01-19-2024 11:22-0400 Body temperature 98 [degF] DO Clint Alejandros Work Phone: [facility] 01-19-2024 11:22-0400 Body weight 76.2 kg DO Clint Alejandros Work Phone: [facility] 01-19-2024 11:22-0400 Diastolic blood pressure 91 mm[Hg] DO Clint Alejandros Work Phone: [facility] 01-19-2024 11:22-0400 Heart rate 52 /min DO Clint Alejandros Work Phone: [facility] 01-19-2024 11:22-0400 Respiratory rate 18 /min DO Clint Alejandros Work Phone: [facility] 01-19-2024 11:22-0400 SaO2% (BldA) [Mass fraction] 99 % DO Clint Alejandros Work Phone: [facility] 01-19-2024 11:22-0400 Systolic blood pressure 138 mm[Hg] DO Clint Flavias Work Phone: [facility] 11-17-2023 09:37-0400 Body height 162.56 cm DO Clint Flavias Work Phone: [facility] 11-17-2023 09:37-0400 Body mass index (BMI) [Ratio] 28.8 kg/m2 DO Clint Flavias Work Phone: [phone] [place] [address] 11-17-2023 09:37-0400 Body weight 76.2 kg DO Clint Monicoillis Work Phone: [facility] 11-17-2023 09:37-0400 Diastolic blood pressure 88 mm[Hg] DO Clint Grillis Work Phone: [facility] 11-17-2023 09:37-0400 Heart rate 60 /min DO Clint Monicoillis Work Phone: [facility] 11-17-2023 09:37-0400 Systolic blood pressure 136 mm[Hg] DO Clint Monicoillis Work Phone: [facility] 09-26-2023 10:34-0400 Body height 162.56 cm DO Clint Monicoillis Work Phone: [facility] 09-26-2023 10:34-0400 Body mass index (BMI) [Ratio] 28.8 kg/m2 DO Clint Monicoillis Work Phone: [facility] 09-26-2023 10:34-0400 Body weight 76.2 kg DO Clint Monicoillis Work Phone: [facility] 09-26-2023 10:34-0400 Diastolic blood pressure 82 mm[Hg] DO Clint Monicoillis Work Phone: [facility] 09-26-2023 10:34-0400 Heart rate 63 /min DO Clint Monicoillis Work Phone: [facility] 09-26-2023 10:34-0400 Respiratory rate 18 /min DO Clint Monicoillis Work Phone: [facility] 09-26-2023 10:34-0400 SaO2% (BldA) [Mass fraction] 97 % DO Clint Monicoillis Work Phone: [facility] 09-26-2023 10:34-0400 Systolic blood pressure 131 mm[Hg] DO Clint Monicoillis Work Phone: [facility] 06-25-2023 11:13-0500 Diastolic blood pressure 79 mm[Hg] DO Clint Jean Baptiste Work Phone: [facility] 06-25-2023 11:13-0500 Heart rate 78 /min DO Clint Alejandros Work Phone: [facility] 06-25-2023 11:13-0500 Respiratory rate 20 /min DO Clint Alejandros Work Phone: [facility] 06-25-2023 11:13-0500 SaO2% (BldA) [Mass fraction] 98 % DO Clint Jean Baptiste Work Phone: [facility] 06-25-2023 11:13-0500 Systolic blood pressure 142 mm[Hg] DO Clint Jean Baptiste Work Phone: [facility] 05-19-2023 11:15-0500 Body height 162.56 cm Sandro Chin Other [employer] Other 05-19-2023 11:15-0500 Body mass index (BMI) [Ratio] 28.56 kg/m2 Sandro Chin Other [employer] Other 05-19-2023 11:15-0500 Body weight 75.48 kg Sandro Chin Other [employer] Other 05-19-2023 11:15-0500 Diastolic blood pressure 75 mm[Hg] Sandro Chin Other [employer] Other 05-19-2023 11:15-0500 Systolic blood pressure 109 mm[Hg] Sandro Chin Other [employer] Other 03-24-2023 10:41-0400 Body temperature 97.4 [degF] DO Clint Jean Baptiste Work Phone: [facility] 09-02-2022 08:36-0500 Body temperature 98 [degF] DO Isaías Jordan II Work Phone: [facility] 09-02-2022 08:36-0500 Body weight 76.6 kg DO Isaías Adamowicz II Work Phone: [facility] 09-02-2022 08:36-0500 Diastolic blood pressure 90 mm[Hg] DO Isaías Adamowicz II Work Phone: [facility] 09-02-2022 08:36-0500 Heart rate 65 /min DO Isaías Adamowicz II Work Phone: [facility] 09-02-2022 08:36-0500 Respiratory rate 20 /min DO Isaías Adamowicz II Work Phone: [facility] 09-02-2022 08:36-0500 SaO2% (BldA) [Mass fraction] 99 % DO Isaías Adamowicz II Work Phone: [facility] 09-02-2022 08:36-0500 Systolic blood pressure 147 mm[Hg] DO Isaías Adamowicz II Work Phone: [facility] 08-19-2022 08:43-0500 Body temperature 98.1 [degF] DO Isaías Adamowicz II Work Phone: [facility] 08-19-2022 08:43-0500 Body weight 74.9 kg DO Isaías Adamowicz II Work Phone: [facility] 08-19-2022 08:43-0500 Diastolic blood pressure 90 mm[Hg] DO Isaías Adamowicz II Work Phone: [facility] 08-19-2022 08:43-0500 Heart rate 60 /min DO Isaías Adamowicz II Work Phone: [facility] 08-19-2022 08:43-0500 Respiratory rate 20 /min DO Isaías Adamowicz II Work Phone: [facility] 08-19-2022 08:43-0500 SaO2% (BldA) [Mass fraction] 100 % DO Isaías Adamowicz II Work Phone: [facility] 08-19-2022 08:43-0500 Systolic blood pressure 143 mm[Hg] DO Isaías Adamowicz II Work Phone: [facility] 07-22-2022 09:43-0500 Body temperature 97.8 [degF] DO Isaías Adamowicz II Work Phone: [facility] 07-22-2022 09:43-0500 Body weight 75.7 kg DO Isaías Adamowicz II Work Phone: [facility] 07-22-2022 09:43-0500 Diastolic blood pressure 92 mm[Hg] DO Isaías Adamowicz II Work Phone: [facility] 07-22-2022 09:43-0500 Heart rate 67 /min DO Isaías Adamowicz II Work Phone: [facility] 07-22-2022 09:43-0500 Respiratory rate 16 /min DO Isaías Adamowicz II Work Phone: [facility] 07-22-2022 09:43-0500 SaO2% (BldA) [Mass fraction] 98 % DO Isaías Adamowicz II Work Phone: [facility] 07-22-2022 09:43-0500 Systolic blood pressure 149 mm[Hg] DO Isaías Adamowicz II Work Phone: [facility] 06-26-2022 12:23-0500 Body temperature 97.9 [degF] DO Clint Jean Baptiste Work Phone: [facility] 06-26-2022 12:23-0500 Diastolic blood pressure 79 mm[Hg] DO Clint Jean Baptiste Work Phone: [facility] 06-26-2022 12:23-0500 Heart rate 60 /min DO Clint Grillis Work Phone: [facility] 06-26-2022 12:23-0500 Respiratory rate 18 /min DO Clint Monicoillis Work Phone: [facility] 06-26-2022 12:23-0500 SaO2% (BldA) [Mass fraction] 97 % DO Clint Monicoillis Work Phone: [facility] 06-26-2022 12:23-0500 Systolic blood pressure 132 mm[Hg] DO Clint Grillis Work Phone: [facility] 06-24-2022 10:02-0500 Body weight 75 kg DO Clint Monicoillis Work Phone: [facility] 06-24-2022 09:08-0500 Body temperature 98 [degF] DO Clint Monicoillis Work Phone: [facility] 06-24-2022 09:08-0500 Body weight 75 kg DO Clint Monicoillis Work Phone: [facility] 06-24-2022 09:08-0500 Diastolic blood pressure 93 mm[Hg] DO Clint Monicoillis Work Phone: [facility] 06-24-2022 09:08-0500 Heart rate 61 /min DO Clint Monicoillis Work Phone: [facility] 06-24-2022 09:08-0500 Respiratory rate 16 /min DO Clint Monicoillis Work Phone: [facility] 06-24-2022 09:08-0500 SaO2% (BldA) [Mass fraction] 98 % DO Clint Grillis Work Phone: [facility] 06-24-2022 09:08-0500 Systolic blood pressure 137 mm[Hg] DO Clint Grillis Work Phone: [facility] 06-03-2022 08:08-0500 Body weight 74.1 kg DO Clint Monicoillis Work Phone: [facility] 06-03-2022 08:08-0500 Diastolic blood pressure 90 mm[Hg] DO Clint Jean Baptiste Work Phone: [facility] 06-03-2022 08:08-0500 Heart rate 56 /min DO Clint Jean Baptiste Work Phone: [facility] 06-03-2022 08:08-0500 Respiratory rate 20 /min DO Clint Jean Baptiste Work Phone: [facility] 06-03-2022 08:08-0500 SaO2% (BldA) [Mass fraction] 98 % DO Clint Jean Baptiste Work Phone: [facility] 06-03-2022 08:08-0500 Systolic blood pressure 137 mm[Hg] DO Clint Jean Baptiste Work Phone: [facility] 05-03-2022 14:40-0400 Body height 162.56 cm DO Clint Jean Baptiste Work Phone: [facility] Encounters Encounter Date Encounter Type Care Provider Facility Start: 04-13-2025 End: 04-13-2025 ambulatory Clint Cleo ALETHAL Facility:[facility] Start: 04-13-2025 End: 04-13-2025 Patient encounter procedure Clint Cleo DAGMAR [facility] General Surgery English Start: 04-11-2025 End: 04-13-2025 ambulatory [facility] Start: 04-11-2025 ambulatory Clint NILL Facility:[facility] Start: 04-11-2025 End: 04-13-2025 ambulatory ANTONIO MI [facility] Start: 04-05-2025 ambulatory Clint NILL Facility:[facility] Start: 04-04-2025 End: 04-04-2025 Patient encounter procedure Isaías Jordan II [facility] Work Phone: Start: 04-04-2025 End: 04-04-2025 ambulatory Sandro Chin MD Work Phone: [facility] Work Phone: Start: 03-30-2025 End: 03-30-2025 External Result Encounter Carlyn Turner [employer]CTOR Work Phone: [facility] External Department Unsolicited Start: 03-30-2025 End: 03-30-2025 External Result Encounter Carlyn Turner [employer]ALATOR CONSTRUCTOR Work Phone: [facility] External Department Unsolicited Start: 03-21-2025 Registered Recurring Carlyn Turner LABORATORY SPECIALIST -[facility] Work Phone: Start: 03-21-2025 End: 03-21-2025 ambulatory Sandro Chin MD Work Phone: [facility] Work Phone: Start: 03-21-2025 End: 03-21-2025 Patient encounter procedure Isaías Jordan II [facility] Work Phone: Start: 03-17-2025 Non-patient / Non-visit Dionicio Jordan II DO -[facility] Work Phone: Start: 02-01-2025 End: 02-01-2025 ambulatory Roz L Ly Facility:[facility] Start: 02-01-2025 Non-patient / Non-visit Roz L Ly -[facility] Work Phone: Start: 12-25-2024 Non-patient / Non-visit Sandro mendoza MD -[facility] Work Phone: Start: 12-21-2024 [...] Sandro Chin Facility:[facility] Start: 12-20-2024 End: 12-20-2024 Departed Referred Sandro Chin MD -[facility] [place] Work Phone: Start: 12-20-2024 End: 12-20-2024 Patient encounter procedure Sandro Chin MD -[facility] Work Phone: Start: 12-20-2024 End: 12-20-2024 Patient encounter status Sandro Chin MD [facility] Start: 12-14-2024 End: 12-14-2024 ambulatory [facility] Work Phone: Start: 12-14-2024 End: 12-14-2024 Patient encounter procedure [facility] Physician [facility] Work Phone: Start: 09-06-2024 Registered Recurring Clint eaton DO [facility] Work Phone: Start: 09-06-2024 End: 09-06-2024 ambulatory Clint Jean Baptiste DO Work Phone: [facility] Work Phone: Start: 09-06-2024 End: 09-06-2024 Patient encounter procedure Clint Jean Baptiste DO Work Phone: [facility] Work Phone: Start: 08-24-2024 Non-patient / Non-visit Leroy Jean Baptiste DO Work Phone: [facility] Physician [facility] Work Phone: Start: 07-01-2024 End: 07-01-2024 Patient encounter procedure Clint Jean Baptiste DO Work Phone: [facility] Physician [facility] Work Phone: Start: 03-25-2024 End: 03-25-2024 ambulatory [facility] Nic RICHARDSON [facility] Start: 03-25-2024 End: 03-25-2024 Postop follow up visit related to original px Masha Richardson LABORATORY SPECIALIST-IP [employer] Work Phone: [facility] Comment on above: History of removal o f Port-a-Cath (Primary Dx); History of colon cancer Start: 03-15-2024 End: 03-15-2024 ambulatory THORNDIKE Klever PAPA [facility] Start: 03-15-2024 End: 03-15-2024 Patient encounter procedure Clint Jean Baptiste DO Work Phone: [facility] Comment on above: History of colon can cer (Primary Dx) Start: 03-03-2024 End: 03-03-2024 ambulatory CLINT Klever PAPA [facility] Start: 03-03-2024 End: 03-03-2024 Office outpatient visit 15 minutes Clint Jean Baptiste DO Work Phone: [facility] Comment on above: History of colon can cer (Primary Dx) Start: 01-19-2024 End: 01-19-2024 ambulatory DO Clint Jean Baptiste Work Phone: [facility] Work Phone: Start: 01-19-2024 End: 01-19-2024 Patient encounter procedure DO Clint Jean Baptiste Work Phone: [facility] Work Phone: Start: 01-19-2024 Registered Recurring DO Leroy Jean Baptiste Work Phone: [facility] Work Phone: Start: 01-15-2024 Non-patient / Non-visit DO Sherwin Jean Baptiste Work Phone: [facility] Physician [facility] Work Phone: Start: 11-26-2023 Non-patient / Non-visit DO Sherwin Jean Baptiste Work Phone: [facility] Work Phone: Start: 11-17-2023 Patient encounter status DO Araseli Jean Baptiste Work Phone: [facility] Start: 11-17-2023 End: 11-17-2023 ambulatory DO Clint Jean Baptiste Work Phone: [facility] Work Phone: Start: 11-17-2023 End: 11-17-2023 Patient encounter procedure DO Clint Jean Baptiste Work Phone: [facility] Work Phone: Start: 09-26-2023 Registered Recurring DO Leroy Jean Baptiste [facility] Work [facility]: Start: 09-26-2023 End: 09-26-2023 ambulatory DO Clint Jean Baptiste Work Phone: [facility] Work Phone: Start: 09-26-2023 End: 09-26-2023 Patient encounter procedure DO Clint Jean Baptiste Work Phone: [facility] Work Phone: Start: 09-18-2023 Non-patient / Non-visit DO Sherwin Jean Baptiste Work Phone: [facility] Work Phone: Start: 05-19-2023 End: 05-19-2023 ambulatory Sandro Chin Other [facility] Other Start: 05-19-2023 Office outpatient vi sit [address] [facility] Start: 11-16-2022 End: 11-17-2022 ambulatory ISAÍAS JORDAN Facility:[facility] Start: 11-02-2022 End: 11-03-2022 ambulatory ISAÍAS JORDAN Facility:[facility] Start: 10-19-2022 End: 10-20-[address] SANDRO CHIN Facility:[facility] Start: 09-14-2022 End: 09-15-2022 ambulatory ISAÍAS JORDAN Facility:[facility] Start: 09-02-2022 End: 09-02-2022 ambulatory NON STAFF [facility] Work Phone: Start: 09-02-2022 End: 09-02-2022 Registered Recurring DO Isaías Tonimiri II Work Phone: [facility] Work Phone: Start: 09-01-2022 End: 09-01-[address] SANDRO CHIN Facility:[facility] Start: 08-31-2022 End: 09-01-2022 ambulatory ISAÍAS J RADHA Facility:[facility] Start: 08-19-2022 End: 08-19-2022 ambulatory NON STAFF [facility] Work Phone: Start: 08-19-2022 End: 08-19-2022 Registered Recurring DO Isaías Muñozmiri II Work Phone: [facility] [facility] Work Phone: Start: 08-16-2022 End: 08-17-2022 ambulatory ISAÍAS Seals RADHA Facility:H1 Start: 08-03-2022 End: 08-04-2022 ambulatory ISAÍAS Seals CHIQUISISAIAS Facility:H1 Start: 07-22-2022 End: 07-22-2022 ambulatory NON STAFF [facility] Work Phone: Start: 07-22-2022 End: 07-22-2022 Registered Recurring DO Isaías Muñozmiri II Work Phone: [facility] Work Phone: Start: 07-20-2022 End: 07-21-2022 ambulatory ISAÍAS Seals RADHA Facility:H1 Start: 07-06-2022 End: 07-06-2022 ambulatory DO Clint Klever Alejandros Work Phone: [facility] Work Phone: Start: 07-06-2022 End: 07-06-2022 Departed Referred DO Clint Alejandros Work Phone: [facility] [place] Work Phone: Start: 06-26-2022 Registered Recurring DO Leroy Jean Baptiste [facility] [place] Work Phone: Start: 06-24-2022 End: 06-24-2022 ambulatory DO Clint Alejandros Work Phone: [facility] Work Phone: Start: 06-24-2022 End: 06-24-2022 Registered Recurring DO Clint [facility]jandros [facility] [place] Start: 06-24-2022 End: 06-24-2022 ambulatory DO Clint Alejandros Work Phone: [facility] Work Phone: Start: 06-24-2022 End: 06-24-2022 Registered Recurring DO Clint [facility]jandros [facility] [place] Start: 06-22-2022 End: 06-23-2022 ambulatory ISAÍAS JORDAN Facility:H1 Start: 06-08-2022 End: 06-09-2022 ambulatory ISAÍAS JORDAN Facility:H1 Start: 06-03-2022 End: 06-03-2022 ambulatory DO Clint Alejandros Work Phone: [facility] Work Phone: Start: 06-03-2022 End: 06-03-2022 Registered Recurring DO Clint Alejandros [facility] Start: 06-01-2022 End: 06-02-2022 ambulatory ISAÍAS JORDAN Facility:H1 Start: 05-22-2022 End: 05-23-2022 ambulatory ISAÍAS Seals RADHA Facility:H1 Start: 05-21-2022 Encounter for preprocedural laboratory examination DR CLINT JEAN BAPTISTE . [facility] Start: 05-18-2022 End: 05-19-[address] [...] DR CLINT JEAN BAPTISTE . [facility] Start: 04-04-2022 Encounter for preprocedural laboratory examination DR CLINT JEAN BAPTISTE . [facility] Start: 04-02-2022 End: [address] [...] the presence orabsence of malignant disease.Performed at: [facility] [place], [place] [id number] Director: Edilson Saunders PhD, Phone: [phone] Start: 08-24-2024 Carcinoembryonic antigen cea Clint sullivan DO Work Phone: Comment on above: Nonsmokers <3.9 Smokers <5.6[employer] Electrochemiluminescence Immunoassay(ECLIA)Values obtained with different assay methods or kitscannot be used interchangeably. Results cannot beinterpreted as absolute evidence of the presence orabsence of malignant disease.Performed at: [facility] Dover[facility]ex[facility]h[address] [place], [place] [id number] Director: Edilson Saunders PhD, Phone: [phone] Start: 03-15-2024 Removal of implantable venous access port Clint POMPAIvory Start: 01-15-2024 Carcinoembryonic antigen cea DO Clint Jean Baptiste Work Phone: Comment on above: Nonsmokers <3.9 Smokers <5.6[employer] Electrochemiluminescence Immunoassay(ECLIA)Values obtained with different assay methods or kitscannot be used interchangeably. Results cannot beinterpreted as absolute evidence of the presence orabsence of malignant disease.Performed at: [facility] [place], [place] [id number] Director: Edilson Saunders PhD, Phone: [phone] Start: 09-18-2023 Carcinoembryonic antigen cea DO Clint Jean Baptiste Work Phone: Comment on above: Nonsmokers <3.9 Smokers <5.6[employer] Electrochemiluminescence Immunoassay(ECLIA)Values obtained with different assay methods or kitscannot be used interchangeably. Results cannot beinterpreted as absolute evidence of the presence orabsence of malignant disease.Performed at: [facility] Dover[facility]reqlu[address] [place], [place] [id number] Director: Edilson Saunders PhD, Phone: [phone] Start: 05-07-2023 Colonoscopy Clint Marcpapa GONGORA Work Phone: Start: 07-07-2022 Colonoscopy Clint LEAVITT Start: 05-22-2022 Insertion of implantable venous access device using fluoroscopic guidance Clint LEAVITT Start: 04-10-2022 Resection of Sigmoid Colon, Open Approach ISAÍAS JORDAN Start: 04-06-2022 Sigmoid colectomy Clint LEAVITT Start: 03-13-2022 Colonoscopy Clint LEAVITT section Clint Dodson Esophagogastroduodenoscopy Gay LEAVITT Extraction of wisdom tooth Gay LEAVITT Repair of left inguinal hernia Clint POMPAIvory Plan of Treatment Date Care Activity Detail Author Start: 05-07-2033 Screening for malign ant neoplasm of colon [facility] Start: 05-07-2026 Screening for malign ant neoplasm of colon Colonoscopy [facility] Start: 04-18-2025 ambulatory Ambulatory [facility] Start: 04-04-2025 Patient referral [facility] Work Phone: Start: 03-21-2025 Patient referral [facility] Work Phone: Start: 03-15-2025 Adult BMI Screening Adult BMI Screen ing [facility] Start: 03-15-2025 Tobacco Screening Tobacco Screening [facility] Start: 03-07-2025 Influenza vaccination Influenz a Vaccine (#1) [facility] Start: 03-03-2025 Adult BMI Screening Adult BMI Screen ing [facility] Start: 03-03-2025 Tobacco Screening Tobacco Screening [facility] Start: 02-01-2025 End: 02-01-2025 [facility] Start: 12-21-2024 End: 12-21-2024 Patient encounter procedure 12/21/2024 8:40 AM EDT Office Visit [facility] [address] [place] [address] Constantino Martinez MD [address] [facility] [address] [place] [address] Arrived [facility] Comment on above: Arrived Start: 12-14-2024 Patient referral [facility] Work Phone: Start: 03-25-2024 End: 03-25-2024 Patient encounter procedure 03/25/2024 11:00 AM EDT Office Visit [facility] General Surgery [address] [place] [phone] Masha Richardson, LABORATORY SPECIALIST-IP LITIGATION [place] [address] [place], [place] [id number] [facility] Start: 03-15-2024 End: 03-15-2024 Patient encounter procedure 03/15/2024 1:30 PM EDT Office Visit [facility] [address] [place] [id number] Clint Jean Baptiste, [address] [place], [place] [id number] [facility] Start: 03-07-2024 COVID-19 Vaccine ( season) COVID-19 Vaccine () [facility] Start: 03-07-2024 Influenza vaccination Influenza Vacc ine [facility] Start: 01-19-2024 Patient referral [facility] Work Phone: Start: 11-17-2023 Patient referral [facility] Work Phone: Start: 03-07-2023 COVID-19 Vaccine ( season) COVID-19 Vaccine ( season) [facility] Start: 11-18-2022 [facility] Start: 11-18-2022 [facility] Start: 11-04-2022 [facility] Start: 10-21-2022 [facility] Start: 10-21-2022 [facility] Start: 10-21-2022 [facility] Start: 09-23-2022 [facility] Start: 09-23-2022 [facility] Start: 09-16-2022 [facility] Start: 09-02-2022 [facility] Start: 08-19-2022 [facility] Start: 08-19-2022 [facility] Start: 08-05-2022 [facility] Start: 07-22-2022 [facility] Start: 07-09-2022 [facility] Start: 06-26-2022 [facility] Start: 06-24-2022 [facility] Start: 06-10-2022 Comprehensive metabo lic 2000 panel - Serum or Plasma [facility] Start: 06-10-2022 Magnesium measurement [facility] Start: 06-10-2022 [facility] Start: 06-10-2022 [facility] Start: 06-03-2022 [facility] Start: 05-27-2022 [facility] Start: 2006 Screening for malign ant neoplasm of breast Mammogram [facility] Start: 1996 Screening for malign ant neoplasm of cervix [facility] Start: 1987 Screening for malign ant neoplasm of cervix Pap Smear [facility] Start: 1985 Administration of va ricella zoster vaccine Zoster (Shingles) Vaccine (1 of 2) [facility] Start: 1985 DTaP,Tdap and Td Vac cines (1 - Tdap) DTaP,Tdap and Td Vaccines (1 - Tdap) [facility] Start: 1984 Adult BMI Follow Up Plan Adult BMI Follow Up Plan [facility] Start: 1978 Depression Screening Depression Scre ening [facility] Start: 1966 Screening for malign ant neoplasm of colon [facility] Alanine aminotransfe rase [Enzymatic activity/volume] in Serum or Plasma by No addition of P-5'-P [facility] Work Phone: Alanine aminotransfe rase [Enzymatic activity/volume] in Serum or Plasma by No addition of P-5'-P [facility] Albumin [Mass/volume ] in Serum or Plasma [facility] Work Phone: Albumin [Mass/volume ] in Serum or Plasma [facility] Albumin/Globulin ratio [facility] Work Phone: Albumin/Globulin ratio [facility] Alkaline phosphatase [Enzymatic activity/volume] in Serum or Plasma [facility] Work Phone: Alkaline phosphatase [Enzymatic activity/volume] in Serum or Plasma [facility] Anion gap measurement [facility] Work Phone: Anion gap measurement [facility] Aspartate aminotrans ferase [Enzymatic activity/volume] in Serum or Plasma [facility] Work Phone: Aspartate aminotrans ferase [Enzymatic activity/volume] in Serum or Plasma [facility] Basophil count [facility] Work Phone: Basophil percent differential count [facility] Work Phone: Bilirubin.total [Mass/volume] in Serum or Plasma [facility] Work Phone: Bilirubin.total [Mass/volume] in Serum or Plasma [facility] Calcium [Mass/volume ] in Serum or Plasma [facility] Work Phone: Calcium [Mass/volume ] in Serum or Plasma [facility] Carbon dioxide, tota l [Moles/volume] in Serum or Plasma [facility] Work Phone: Carbon dioxide, tota l [Moles/volume] in Serum or Plasma [facility] Carcinoembryonic Ag [Mass/volume] in Serum or Plasma [facility] Chloride [Moles/volu me] in Serum or Plasma [facility] Work Phone: Chloride [Moles/volu me] in Serum or Plasma [facility] Choriogonadotropin ( test) [Presence] in Urine [facility] Comprehensive metabo lic 1999 panel - Serum or Plasma [facility] Comprehensive metabo lic 1999 panel - Serum or Plasma [facility] Comprehensive metabo lic 1999 panel - Serum or Plasma [facility] Comprehensive metabo lic 1999 panel - Serum or Plasma [facility] Comprehensive metabo lic 1999 panel - Serum or Plasma [facility] Comprehensive metabo lic 1999 panel - Serum or Plasma [facility] Comprehensive metabo lic 1999 panel - Serum or Plasma [facility] Comprehensive metabo lic 1999 panel - Serum or Plasma [facility] Comprehensive metabo lic 1999 panel - Serum or Plasma [facility] Comprehensive metabo lic 1999 panel - Serum or Plasma [facility] Comprehensive metabo lic 1999 panel - Serum or Plasma [facility] Comprehensive metabo lic 1999 panel - Serum or Plasma [facility] Comprehensive metabo lic 1999 panel - Serum or Plasma [facility] Comprehensive metabo lic 1999 panel - Serum or Plasma [facility] Comprehensive metabo lic 1999 panel - Serum or Plasma [facility] Creatinine and Glome rular filtration rate.predicted panel - Serum, Plasma or Blood [facility] Work Phone: Creatinine and Glome rular filtration rate.predicted panel - Serum, Plasma or Blood [facility] CT Abdomen and Pelvi s W contrast IV [facility] CT Abdomen and Pelvi s W contrast IV [facility] CT Abdomen and Pelvi s W contrast IV [facility] CT Abdomen and Pelvi s W contrast IV [facility] CT Abdomen and Pelvi s W contrast IV [facility] CT Abdomen and Pelvi s W contrast IV [facility] CT Chest W contrast IV [facility] CT Chest W contrast IV [facility] CT Chest W contrast IV [facility] CT Chest W contrast IV [facility] CT Chest W contrast IV [facility] CT Chest W contrast IV [facility] Eosinophil percent differential count [facility] Work Phone: Eosinophils [#/volum e] in Blood [facility] Work Phone: Erythrocyte mean cor puscular volume determination [facility] Work Phone: Erythrocytes [#/volu me] in Blood [facility] Work Phone: Globulin [Mass/volum e] in Serum [facility] Work Phone: Globulin [Mass/volum e] in Serum [facility] Glucose [Mass/volume ] in Serum or Plasma [facility] Work Phone: Glucose [Mass/volume ] in Serum or Plasma [facility] Hematocrit [Volume F raction] of Blood [facility] Work Phone: Hemoglobin [Mass/vol ume] in Blood [facility] Work Phone: Hemoglobin distribut ion, width determination [facility] Work Phone: Leukocytes [#/volume ] in Blood [facility] Work Phone: Lymphocyte count [facility] Work Phone: Lymphocyte percent differential count [facility] Work Phone: Magnesium measurement [facility] Magnesium measurement [facility] Magnesium measurement [facility] Mean corpuscular hem oglobin concentration determination [facility] Work Phone: Mean corpuscular hem oglobin determination [facility] Work Phone: Measurement of renal function [facility] Work Phone: Measurement of renal function [facility] MG Breast - bilatera l Screening [facility] Monocyte count [facility] Work Phone: Monocyte percent differential count [facility] Work Phone: Neutrophil count [facility] Work Phone: Neutrophil percent differential count [facility] Work Phone: Patient Education [facility] Work Phone: Patient referral [facility] Work Phone: Platelet mean volume determination [facility] Work Phone: Platelets [#/volume] in Blood [facility] Work Phone: Potassium [Moles/vol ume] in Serum or Plasma [facility] Work Phone: Potassium [Moles/vol ume] in Serum or Plasma [facility] Protein [Mass/volume ] in Serum or Plasma [facility] Work Phone: Protein [Mass/volume ] in Serum or Plasma [facility] Sodium [Moles/volume ] in Serum or Plasma [facility] Work Phone: Sodium [Moles/volume ] in Serum or Plasma [facility] Urea nitrogen [Mass/ volume] in Serum or Plasma [facility] Work Phone: Urea nitrogen [Mass/ volume] in Serum or Plasma [facility] Immunizations Immunization Date Immunization Notes Care Provider [facility] 05-18-2024 influenza virus vaccine, unspecified formulation Carlyn Truner NP Work Phone: [facility] 05-16-2022 SARS-CoV-2 (COVID-19 ) [id number].[id number] Clint LEAVITT [facility] [place] 04-27-2021 SARS-CoV-2 (COVID-19 ) mRNA-1273 vaccine Clint LEAVITT [facility] Surgery [place] 08-02-2020 SARS-CoV-2 (COVID-19 ) mRNA-1273 vaccine Clint LEAVITT [facility] 07-04-2020 SARS-CoV-2 (COVID-19 ) mRNA-1273 vaccine Clint LEAVITT [facility] Payers Date Payer Category Payer Private Health Insurance [id number] 2024 Self-pay 2022 [facility] er [id number] 2022 Unknown KAYLEY NARAYANAN SS (PPO) [id number] 2022-Present [phone] [address] [place] [address] [id number]. [id number] 2022 Unknown [id number] 2019 Unknown [id number] 1966 Unknown [id number] 2.16.840.1.301634.3.579.2. 593 1966 Unknown [id number] 2.16.840.1.005106.3.579.2. 593 1966 Unknown [id number] 2.16.840.1.321574.3.579.2. 593 1966 Unknown [id number] 2.16.840.1.361675.3.579.2. 593 1966 Unknown [id number] 2.16.840.1.682936.3.579.2. 59 1966 Unknown [id number] 2.16.840.1.671170.3.579.2. 593 1966 Unknown [id number] 2.16.840.1.277099.3.579.2. 593 1966 Unknown [id number] 2.16.840.1.230596.3.579.2. 59 1966 Unknown [id number] 2.16.840.1.889650.3.579.2. 59 1966 Unknown [id number] 2.16.840.1.399465.3.579.2. 593 1966 Unknown [id number] 2.16.840.1.715637.3.579.2. 593 1966 Unknown [id number] 2.16.840.1.555191.3.579.2. 593 1966 Unknown [id number] 2.16.840.1.916768.3.579.2. 593 1966 Unknown [id number] 2.16.840.1.528711.3.579.2. 593 1966 Unknown [id number] 2.16.840.1.077875.3.579.2. 59 1966 Unknown [id number] 2.16.840.1.508493.3.579.2. 593 1966 Unknown [id number] 2.16.840.1.450341.3.579.2. 59 1966 Unknown [id number] 2.16.840.1.874359.3.579.2. 593 1966 Unknown [id number] 2.16.840.1.185014.3.579.2. 593 1966 Unknown [id number] 2.16.840.1.068847.3.579.2. 593 1966 Unknown [id number] 2.16.840.1.013487.3.579.2. 593 1966 Unknown [id number] 2.16.840.1.003609.3.579.2. 593 1966 Unknown [id number] 2.16.840.1.244896.3.579.2. 593 1966 Unknown [id number] 2.16.840.1.266650.3.579.2. 593 1966 Unknown [id number] 2.16.840.1.312536.3.579.2. 1286 1966 Unknown [id number] 2.16.840.1.313395.3.579.2. 1286 1966 Unknown [id number] 2.16.840.1.035496.3.579.2. 1286 1966 Unknown [id number] 2.16.840.1.997110.3.579.2. 1259 1966 Unknown [id number] 2.16.840.1.855069.3.579.2. 727 1966 Unknown [id number] 2.16.840.1.771627.3.579.2. 182 1966 Unknown [id number] 2.16.840.1.659301.3.579.2. 182 Unknown [id number] Unknown [id number] 2.16.840.1.548281.3.579.2. 531 Unknown [id number] 2.16.840.1.838471.3.579.2. 531 Unknown [id number] 2.16.840.1.615864.3.579.2. 531 Social History Date Type Detail Facility Start: 05-27-2022 End: 04-13-2025 Tobacco smoking status NHIS Never smoked tobacco (finding) [facility] Start: 1965 Sex Assigned At Female [facility] Start: 03-03-2024 End: 12-21-2024 Sex Assigned At [facility] Other Start: 04-19-2022 Tobacco smoking status NHIS Ex-smoker [facility] History of tobacco use Current smoker [facility] History of tobacco use Cigarette Smoker [facility] Start: 04-19-2022 End: 12-21-2024 Tobacco use and exposure Smokeless tobacco non-user [facility] Start: 03-03-2024 End: 12-21-2024 Alcoholic beverage intake Current drinker of alcohol (finding) [facility] Start: 03-03-2024 End: 12-21-2024 History of Social function [facility] Within the past 12 months we worried whether our food would run out before we got money to buy more. Never True [facility] Start: 04-19-2022 Tobacco Comment smoked when pa tient was 18 for 6 months [facility] Start: 05-01-2023 Alcohol Comment occasionally [facility] Start: 1965 Sex assigned at Not on file [facility] Start: 09-06-2024 End: 12-14-2024 Sex Female (finding) [facility] Tobacco smoking status NHIS Tobacco smoking consumption unknown [facility] Start: 12-21-2024 Alcohol Comment occ [facility] Sexual Orientation [facility] General Surgery English NEGATED: Highlighted row N [facility] Goals Date Patient Goal Desired Activity /State [...] anxiety, glaucoma, recurrent colon cancer, referred for [id number] insertion; patient has h/o sigmoid colectomy in [...] Malignant neoplasm of colon, unspecified) plan right [id number] insertion under anesthesia; informed consent obtained. Ancef [...] Father. Immunizations Vaccine Date Status SARS-CoV-2 (COVID-19) [id number].[id number] 05/16/2022 Recorded SARS-CoV-2 (COVID-19) mRNA-1273 vaccine 04/27/2021 Recorded SARS-CoV-2 (COVID-19) mRNA-1273 vaccine 08/02/2020 Recorded SARS-CoV-2 (COVID-19) mRNA-1 (more content not included)... [facility] Comment on above: Result Comment: Elec [...] gland hypertrophy 12/20/2024 Situational anxiety 12/20/2024 bleeding ([facility]) 05/15/2022 Resolved Ambulatory Problems Diagnosis Date [...] if no improvement. documented in this encounter [facility] 12-14-2024 Chief complaint+R dada for visit [...] Wellness examination December 20, 2024 10: 37am [facility] Work Phone: 1(207) 804-237206-10-2025 Evaluation note* Diagnosis Onset Date Resolution Status Admit Date GERD (gastroesophageal reflu x disease) acute December 14, 2024 9:27am Pharyngitis, chronic acute December 14, 2024 9:27am Globus sensation acute December 10:37am Screening mammogram for binh st cancer acute December 20, 2024 10:37am Wellness examination acute December 20, 2024 10:37am [facility] Work Phone: 1(695) 310-384612-26-2024 Evaluation note* Diagnosis Onset Date Resolution Status Admit Date Osteoarthritis acute June 072023 10:57am Situational anxiety acute Decem 2023 10:57am Abnormal LFTs acute September 06, 2024 1:19pm Chemotherapy-induced periphe ral neuropathy acute September 06, 2024 1:19pm Colon cancer acute September 06, 2 025 1:19pm Encounter for chemotherapy management acute September 06, 2024 1:19pm [facility] Work Phone: 1(784) 119-614609-19-2024 History of Present illness Narrative* Masha Richardson, OLIVIA-IP LITIGATION [place] - 03/25/2024 11:00 AM EDT Subjective Marysol [...] of removal of Port-a-Cath [Z98.890] RAEGAN TAYLOR [facility] [place] This note was created with the assistance of a speech recognition program. While intending to generate a timely document that accurately reflects the content of the visit, no guarantee can be provided that every grammatical or spelling mistake has been or will be identified or corrected. Thank you for your understanding. RAEGAN Taylor 03/25/24 1143 [facility] History of Present illness Narrative* Clint [...] weeks for suture removal. documented in [facility] History of Present illness Narrative* Clint Jean Baptiste DO - 03/03/2024 10:15 AM EDT Images from the original note were not included. [facility] [id number] Progress NOTE CHIEF COMPLAINT Chief Complaint Patient [...] a history of colon cancer resected by wi April 10, 2022 at the [facility]. Her last colonoscopy was in May, and was normal. 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 MEDICATION Current Outpatient Medications: brimonidine (ALPHAGAN) [...] by mouth daily., Disp: , Rfl: omega 0-jsh-htv-fish oil (Fish OiL) 300-1,000 mg capsule, Take by mouth., Disp: , Rfl: omeprazole (PriLOSEC) 20 mg capsule, PATIENT REPORTS NEEDED , Disp: , Rfl: ALLERGY Allergies Allergen Reactions Hydrocodone Nausea And Vomiting Patient reports it was many years ago Codeine GI Disturbance MEDICAL HISTORY Past Medical History: Diagnosis Date Colon cancer ([facility] Female pelvic congestion syndrome 02/20/2023 Glaucoma of both eyes bleeding SURGICAL HISTORY Past Surgical History: Procedure Laterality Date SECTION HERNIA REPAIR inguinal hernia LEFT COLECTOMY SIGMOID COLON RESECTION BY DR JEAN BAPTISTE, AT [facility] TO[facility] EXTRACTION SOCIAL HISTORY Social History [...] patient/family/caregiver Referring and communicating with other health healthcare facility administrator History of colon cancer [Z85.038] Clint Jean Baptiste DO This note was created with the assistance of a speech recognition program. While intending to generate a timely document that accurately reflects the content of the visit, no guarantee can be provided that every grammatical or spelling mistake has been or will be identified or corrected. Thank you for your understanding. documented in [facility]11-[facility]23 Evaluation note* Encounter Date Diagnosis Assessment Notes [...] for PT printed and given to pt. Nitronex Other 09-18-2023 Progress note Author Isaías Jordan [facility] March 24, 2023 11:05am Note Date/Time March 24, 2023 10:55am [facility] Center at [address] [address] Hem/Onc Follow Up Note - OP Signed Patient: Marysol Gardner MR#: [id number] : 1965 Acct:[id number] Age/Sex: 57 / F Type: REG RCR [...] prior to f/u. f/u with me or tuckpointer in may/jun. renew her celebrex prescription. - History of Present Illness Chief Complaint: Patient is here for a 5 month follow up with labs and outside notes and radiology for review. 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 Labs reviewed on patient's chart from [facility] - no significant cytopenias or electrolyte, renal/hepatic [...] from visiting her mother and family in [place]. She has no neuropathy at all. last [...] Also engorged periuterine vessels. She has seen airport representative. she had transvaginal ultrasound. This will be monitored. Her PRODUCTION ASSEMBLY OPERATOR has offered her a dexa scan. Her [...] for coordination of care (as documented) and andg-wc-fecu counseling of patient and/or family. [facility] - Medical History Medical History: [...] % (Auto) 47.6, Lymph % (Auto) 39.4, Giles % (Auto) 9.0, Eos % (Auto) 2.8, Baso % (Auto) 1.2, Nucleat RBC Rel Count 0.1, Neut # (Auto) 2.4, Lymph # (Auto) 2.0, Giles # (Auto) 0.5, Eos # (Auto) 0.1, [...] by Isaías Jordan II, DO> 03/24/23 1105 [facility] Work Phone: 1(133) 942-356104-17-2023 Progress note Author Isaías Jordan [facility] October 21, 2022 8:50am Note Date/Time October 21, 2022 8:3 8am [facility] at [address] [address] Hem/Onc Follow Up Note - OP Signed Patient: Marysol Gardner MR#: [id number] : 1965 Acct:[id number] Age/Sex: 57 / F Type: REG RCR [...] 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 Labs reviewed on patient's chart from [facility] - no significant cytopenias or electrolyte, renal/hepatic [...] from visiting her mother and family in [place]. She has no neuropathy at all. last [...] for coordination of care (as documented) and hbio-dc-nhsf counseling of patient and/or family. [facility] - Medical History Medical History: [...] PO DAILY #60 ea 08/05/22 [Rx Confirmed 04/17/23] prochlorperazine maleate 10 mg tablet (Compazine) 10 mg PO Q6H PRN Nausea And Vomiting #60 tabs 08/05/22 [Rx Confirmed 10/21/22] carica papaya (Papaya Enzyme tablet) 1 tab PO DAILY 08/19/22 [History Confirmed 10/21/22] Dictated By: Isaías Jordan II, DO DD/ 0836 Signed By: <Electronically signed by Isaías Jordan II DO> 10/21/22 0850 [facility] Work Phone: 1(447) 711-757502-27-2023 Progress note Author Isaías Jordan [facility] September 02, 2022 9:09am Note Date/Time September 02, 2022 8:58am [facility] at [address] [address] Hem/Onc Follow Up Note - OP Signed Patient: Marysol Gardner MR#: [id number] : 1965 Acct:[id number] Age/Sex: 57 / F Type: REG RCR [...] 4 or 6 weeks with me or tuckpointer. - History of Present Illness Chief Complaint: Patient is here for a 2 week follow up with outside labs for review, prior to treatment today. States she is feeling remarkably better. 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 Labs reviewed on patient's chart from [facility] - no significant cytopenias or electrolyte, renal/hepatic [...] for coordination of care (as documented) and vwmj-ui-kpgt counseling of patient and/or family. [facility] - Medical History Medical History: [...] by Isaías Jordan II, DO> 09/02/22 0909 [facility] Work Phone: [phone] 423-135502-13-2023 Hospital Discharge instructionsAmbulatory Orders* Proceed with Treatment Time Frame: 08/19/22, Location: Determined By Patient [facility] Work Phone: [phone]) 809-605502-13-2023 Hospital Discharge instructionsAmbulatory Orders* Proceed with Treatment Time Frame: 08/19/22, Location: Determined By Patient * Proceed with Treatment Time Frame: 09/02/22, Location: Determined By Patient * RISE Order Time Frame: 1 Week, Location: Determined By Patient [facility] Work Phone: 1([phone]) 277-955802-13-2023 Hospital Discharge instructionsAmbulatory Orders* Proceed with Treatment Time Frame: 08/19/22, Location: Determined By Patient * Proceed with Treatment Time Frame: 09/02/22, Location: Determined By Patient * RISE Order Time Frame: 1 Week, Location: Determined By Patient * Referral to General Surgery Time Frame: 04/04/25, Location: None Selected [facility] Work Phone: [phone]) 205-153102-13-2023 Progress note Author Dayan Magallon [facility] August 19, 2022 11:20am Note Date/Time August 19, 2022 11:14am [facility] [place] [address] Hem/Onc Follow Up Note - OP Signed Patient: Marysol Gardner MR#: [id number] : 1965 Acct:[id number] Age/Sex: 57 / F Type: REG RCR Copies to: MD Clint Bernstein,DO~ Subjective Date/Time of Service: Date of Service: 08/19/2022 Time of Service: 11:12 Chief Complaint: Patient is here for a 1 month follow up with labs for review, prior to treatment today. No concerns voiced. 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 Labs reviewed on patient's chart from [facility] - no significant cytopenias or electrolyte, renal/hepatic [...] for coordination of care (as documented) and wlwi-se-mqqm counseling of patient and/or family. Dictated By: Dayan Magallon APRN DD/ 11 Signed By: <Electronically signed by OLIVIA Magallon> 08/19/22 1120 [facility] Work Phone: 1([phone]) 588-189601-16-2023 Progress note Author Dayan Magallon [facility] July 22, 2022 11:46am Note Date/Time July 22, 2022 1 1:36am [facility] at [place] [id number] Hem/Onc Follow Up Note - OP Signed Patient: Marysol Gardner MR#: [id number] : 1965 Acct:[id number] Age/Sex: 57 / F Type: REG RCR Copies to: MD Clint Bernstein,DO~ Subjective Date/Time of Service: Date of Service: 07/22/2022 Time of Service: 11:34 Chief Complaint: Patient is here today for a one month follow up visit for coloncancer and go over labs. 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 Labs reviewed on patient's chart from [facility] - no significant cytopenias or electrolyte, renal/hepatic [...] 10 point review of systems is negative. [facility] - Medical History Medical History: [...] for coordination of care (as documented) and lzkk-om-wnmb counseling of patient and/or family. Dictated By: Dayan Magallon APRN DD/ 1134 Signed By: <Electronically signed by OLIVIA Magallon> 07/22/22 1146 [facility] Work Phone: 1(130) 873-385112-19-2022 Progress note Author Isaías Jordan [facility] June 24, 2022 9:49am Note Date/Time June 24, 2022 9:42am [facility] [place] [address] Hem/Onc Follow Up Note - OP Signed Patient: Marysol Gardner MR#: [id number] : 1965 Acct:[id number] Age/Sex: 57 / F Type: REG RCR [...] cotn folfox q2wks. f/u with me or tuckpointer in a month. cbc, cmp on treatemet days. cea prior to f/u. 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 Labs reviewed on patient's chart from [facility] - no significant cytopenias or electrolyte, renal/hepatic [...] for coordination of care (as documented) and njhw-ve-aqkz counseling of patient and/or family. 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 Labs reviewed on patient's chart from [facility] - no significant cytopenias or electrolyte, renal/hepatic issues. - Summary of Therapies Summary of Therapies: FOLFOX chemotherapy (adjuvant) 1. Cycle 1, Day 1: 05/27/2022 Subjective/ROS - Narrative: As per the HPI, otherwise 10 point review of systems is negative. 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 - plan Cycle 2, [...] for coordination of care (as documented) and bxip-eg-eeuf counseling of patient and/or family. 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 She began having irregular [...] 13, 2022, scope could not be passed mlnyrk48 cm due to a tumor in the [...] for coordination of care (as documented) and xlvk-ey-fkjb counseling of patient and/or family. 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 She began having irregular [...] for coordination of care (as documented) and hnws-yp-upcp counseling of patient and/or family. [facility] - Medical History Medical History: [...] by Isaías Jordan II, DO> 05/03/22 1528 [facility] Work Phone: [phone]) 528-532210-01-2022 History general Narrative - Reported* Type Description Date Medical History Colon cancer Medical History Pelvic congestion syndrome Surgical History Bowel resection 04/2022 Surgical History C -Section 2005 Surgical History Hernia repair 2001 Surgical History [employer] teeth Nitronex Other 09-07-2022 NoteOPERATIVE NOTE OPERATION DATE: 03/13/2022 [...] abdomen and pelvis performed at the [facility], January 09, which was read as [...] then she will need surgical therapy.[id number] NotePatient Education Materials Follows: Laceration Care, Adult [...] needed: ? Soap. ? Water. ? Hand electronic systems technician. ? Bandage (dressing). ? Antibiotic ointment. ? Clean towel. How to take care of your cut Wash your hands with soap and water before touching your wound or changing your bandage. If soap and water are not available, use hand electronic systems technician. If your doctor used stitches or [...] off the skin. General instructions ? Take ohsv-dng-jbykxsk and prescription medicines only as told by [...] your body. (more content not included)...[facility] complaint+Reason for visit Narrative* Chief Complaint Admit Date Sore Throat/ENT Referral December 14, 2024 9:27am Reason for Visit Admit Date Pharyngitis, chronic December 14, 2024 9:2 7am [facility] Work Phone: evaluation + Plan note No data available for this section [facility] General Surgery Dee evaluation note* Diagnosis Onset Date Resolution Status Colon cancer acute Encounter for chemotherapy management acute [facility] Work Phone: evaluation note* Diagnosis Onset Date Resolution Status Abnormal LFTs acute Chemotherapy-induced peripheral neuropathy acute Colon cancer acute Encounter for chemotherapy management acute [facility] Work Phone: evaluation noteNo assessment information available [facility] Work Phone: evaluation note* Diagnosis Onset Date Resolution Status Colon cancer acute Abnormal LFTs acute Chemotherapy-induced peripheral neuropathy acute Colon cancer acute Encounter for chemotherapy management acute Salivary gland hypertrophy a cute [facility] Work Phone: evaluation note* Diagnosis Onset Date Resolution Status Salivary gland hypertrophy a cute Abnormal LFTs acute Chemotherapy-induced peripheral neuropathy acute Colon cancer acute Encounter for chemotherapy management acute [facility] Work Phone: evaluation note* Diagnosis History of colon cancer- Primary Personal history of malignant neoplasm of large intestine [facility] Diagnosis History of colon cancer- Primary Personal history of malignant neoplasm of large intestine [facility]* Diagnosis History of removal of Qyax-h-Vhqo- Primary History of colon cancer Personal history of malignant neoplasm of large intestine [facility] Diagnosis Onset Date Resolution Status Admit Date Pharyngitis, chronic acute December 14, 2024 9:27am [facility] Work Phone: Evaluation note* Diagnosis Globus sensation- Primary Gastrointestinal malfunction arising from mental factors LPRD (laryngopharyngeal reflux disease) Acute laryngitis, without mention of obstruction documented in this encounter [facility]* Diagnosis Onset Date Resolution Status Admit Date Abnormal LFTs acute March 072024 1:07pm Chemotherapy-induced peripheral neuropathy acute March 21, 2025 1:07pm Colon cancer acute March 212024 1:07pm Encounter for chemotherapy management acute March 21, 2025 1:07pm [facility] Work Phone: Evaluation note* Diagnosis Onset Date Resolution Status Admit Date Abnormal LFTs acute March 082024 1:09pm 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, 2025 1:09pm Colon cancer acute April 042024 1:09pm Encounter for chemotherapy management acute April 04, 2025 1:09pm [facility] Work Phone: Hospital Discharge instructionsAmbulatory Orders* Proceed with Treatment Time Frame: 08/19/22, Location: Determined By Patient [facility] Work Phone: Hospital Discharge instructionsAmbulatory Orders* Referral to ENT Time Frame: 11/17/23, Location: None Selected [facility] Work Phone: Hospital Discharge instructionsAmbulatory Orders* Referral to ENT Time Frame: 12/14/24, Location: None [facility] Work Phone: Hospital Discharge instructions Additional Instructions [...] NOT operate machinery such as power tools, [employer] mowers, [employer] blowers, sewing machines, etc. for 24 hours. [...] problems. -Follow up with PCP. -Office number [phone]. [facility] Work Phone: Hospital Discharge instructions No data available for this section [facility] General Surgery English InstructionsNot on filedocumented in this encounter [facility] on filedocumented in this encounter [facility] System[facility]ructionsNot on filedocumented in this encounter [facility] Author Dayan Magallon [facility] June 03, 2022 8:41am Note Date/Time June 03, 2022 8:14[facility] [place] [address] Hem/Onc Follow Up Note - OP Signed Patient: Marysol Gardner MR#: [id number] : 1965 Acct:[id number] Age/Sex: 57 / F Type: REG RCR [...] 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 Labs reviewed on patient's chart from [facility] - no significant cytopenias or electrolyte, renal/hepatic issues. - Summary of Therapies Summary of Therapies: FOLFOX chemotherapy (adjuvant) 1. Cycle 1, Day 1: 05/27/2022 Subjective/ROS - Narrative: As per the HPI, otherwise 10 point review of systems is negative. 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 - plan Cycle 2, [...] for coordination of care (as documented) and mjmh-oz-drfe counseling of patient and/or family. Dictated By: Dayan Magallon APRN DD/ 3 Signed By: <Electronically signed by OLIVIA Magallon> 06/03/22840 [facility] Work Phone: Progress note Author Isaías Jordan [facility] June 24, 2022 9:49am Note Date/Time June 24, 2022 9:42am [facility] [place] [address] Hem/Onc Follow Up Note - OP Signed Patient: Marysol Gardner MR#: [id number] : 1965 Acct:[id number] Age/Sex: 57 / F Type: REG RCR [...] cotn folfox q2wks. f/u with me or tuckpointer in a month. cbc, cmp on treatemet days. cea prior to f/u. 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 Labs reviewed on patient's chart from [facility] - no significant cytopenias or electrolyte, renal/hepatic [...] for coordination of care (as documented) and poxm-oh-mivc counseling of patient and/or family. [facility] - Medical History Medical History: [...] by Isaías Jordan II, DO> 06/24/22 0949 [facility] Work Phone: Progress note Author Dayan Magallon [facility] July 22, 2022 11:46am Note Date/Time July 22, 2022 1 1:36am [facility] [place] [address] Hem/Onc Follow Up Note - OP Signed Patient: Marysol Gardner MR#: [id number] : 1965 Acct:[id number] Age/Sex: 57 / F Type: REG RCR Copies to: MD Clint Bernstein DO~ Subjective Date/Time of Service: Date of Service: 07/22/2022 Time of Service: 11:34 Chief Complaint: Patient is here today for a one month follow up visit for coloncancer and go over labs. 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 Labs reviewed on patient's chart from [facility] - no significant cytopenias or electrolyte, renal/hepatic [...] 10 point review of systems is negative. [facility] - Medical History Medical History: [...] for coordination of care (as documented) and zwar-ms-cmel counseling of patient and/or family. Dictated By: Dayan Magallon APRN DD/ 1134 Signed By: <Electronically signed by OLIVIA Magallon> 07/22/22 1146 [facility] Work Phone: Progress note Author Isaías Jordan [facility] September 02, 2022 9:09am Note Date/Time September 02, 2022 8:58am [facility] [place] [address] Hem/Onc Follow Up Note - OP Signed Patient: Marysol Gardner MR#: [id number] : 1965 Acct:[id number] Age/Sex: 57 / F Type: REG RCR Copies to: MD Clint Bernsteni,DO~ Date of Service: 09/02/2022 Time of Service: [...] 4 or 6 weeks with me or tuckpointer. - History of Present Illness Chief Complaint: Patient is here for a 2 week follow up with outside labs for review, prior to treatment today. States she is feeling remarkably better. 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 Labs reviewed on patient's chart from [place] - no significant cytopenias or electrolyte, renal/hepatic [...] for coordination of care (as documented) and ldvo-dl-ppkz counseling of patient and/or family. 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 Labs reviewed on patient's chart from [place] - no significant cytopenias or electrolyte, renal/hepatic [...] Also engorged periuterine vessels. She has seen airport representative. she had transvaginal ultrasound. This will be monitored. Her PRODUCTION ASSEMBLY OPERATOR has offered her a dexa scan. Her [...] january with no evidence recurrence. done at [place]. Intake Vitals/Pain Assessment 01/19/24 11:22 Height 5 [...] latanoprost 0.005% 1 drp Eye-Both QPM omega 4-xcp-qbx-fish oil 300-1,000 mg (Fish Oil) 1 cap [...] No concerns voiced at time of intake. [facility] History Attestation statement: The following information was validated with the patient. Medical History Medical History delivery delivered Colon cancer Cancer (03/26/22) COVID bleeding Glaucoma of both eyes Surgical History Surgical History [employer] teeth extracted S/P hernia repair History of [...] by Isaías Jordan II, DO> 01/19/24 1205 [facility] Work Phone: Progress note No data available for this section [facility] General Surgery English Reason for referral (narrative)No reason for referral information availableMagruder [facility] Work Phone: Summary Purpose Family History No [...] 1:19 pm Encounter for chemotherapy management [facility] 2024 1:19pm Chief Complaint Admit Date [...] DATE CREATED AUTHOR AUTHOR'S ORGANIZ ATION 12/23/2024 [facility] EPIC DATE CREATED AUTHOR AUTHOR'S ORGANIZ ATION 04/14/2025 [facility] DATE CREATED AUTHOR AUTHOR'S ORGANIZ ATION 04/14/2025 [facility] DATE CREATED AUTHOR AUTHOR'S ORGANIZ ATION 04/21/2025 [facility] Care Teams (unrecognized sec tion [...] Active St art: February 01, 2025 Roz Borrego , Other Provider Active Start: February 01, 2025 [...] Dates NON STAFF Primary Care Provider Active Ip Litigation Paralegal Relationship Specialty Start Date End Date Sandro Chin MD [address] [place] [address] PCP - General Family Medicine 03/19/23 Ip Litigation Paralegal Relationship Specialty Start Date End Date Sandro Chin MD [address] [place] [address] PCP - General Family Medicine 03/19/23 Team [...] December 14, 2024 End: December 14, 2024 Ip Litigation Paralegal Relationship Specialty Start Date End Date Sandro Chin MD [address] [place] [address] PCP - General Family Medicine 12/14/24 Ip Litigation Paralegal Relationship Specialty Start Date End Date Sandro Chin MD [address] [place] [address] PCP - General Family Medicine 12/14/24 Team [...] December 20, 2024 End: December 20, 2024 Ip Litigation Paralegal Relationship Specialty Start Date End Date Sandro Chin MD [address] [facility] [place] [phone] PCP - General Family Medicine 12/14/24 Team [...] Otolaryngology Diagnoses Other seasonal allergic rhinitis Procedures MT UNLISTED EVALUATION AND MANAGEMENT SERVICE [facility] [address] [place] [address] Phone: tel: fax: Constantino Martinez MD [address] [facility] [address] [place] [address] Phone: tel: fax: Referral ID Status Reason Start Date Expiration Date Visits Re quested Visits Authorized [id number] Closed 12/14/2024 06/12/2025 1 1 FOR RECORDS [...] BE BASED ON THE PRIMARY CLINICAL RECORDS. [employer] [facility]. provides no warranty or guarantee of the accuracy or completeness of information in this document.
[2025-04-23 08:21] LABS: Hematocrit 40.9 % (36.0-48.0); Hemoglobin 13.7 g/dL (12.0-16.0); Immature Granulocytes Abs Auto 0.01 10^3/uL (0.00-0.03); Immature Granulocytes Pct Auto 0.2 % (0.0-0.5); Lymphocytes Absolute Auto 1.7 10^3/uL (1.2-3.8); Mean Corpuscular HGB Conc 33.5 g/dL (29.9-35.2); Mean Corpuscular Hemoglobin 31.5 pg (26.7-34.0); Mean Corpuscular Volume 94.0 fL (81.0-99.0); Platelet Count 197 10^3/uL (150-450); Red Blood Count 4.35 10^6/uL (4.20-5.40); White Blood Count 6.4 10^3/uL (4.0-11.0)
[2025-04-23 08:41] LABS: Alanine Aminotransferase 19 U/L (14-59); Albumin Globulin Ratio 1.1; Albumin Level 3.9 g/dL (3.4-5.0); Alkaline Phosphatase 86 U/L (46-116); Anion Gap 14.4; Aspartate Amino Transferase 20 U/L (15-37); Blood Urea Nitrogen 14.0 mg/dL (7.0-18.0); Calcium 9.6 mg/dL (8.5-10.1); Carbon Dioxide 25.8 mmol/L (21.0-32.0); Chloride 103 mmol/L (98-107); Estimated GFR (African America >60 (>=60 mL/min/1.73m^2); Estimated GFR (Non-African Ame >60 (>=60 mL/min/1.73m^2); Globulin 3.6 g/dL; Glucose 103 mg/dL (74-106); Potassium 4.2 mmol/L (3.5-5.1); Sodium 139 mmol/L (136-145); Total Protein 7.5 g/dL (6.4-8.2)
[2025-04-23 08:51] LABS: Iron 52.0 ug/dL (50.0-170.0); Percent Iron Saturation 19.2 %; Total Iron Binding Capacity 271.0 ug/dL (250.0-450.0)
[2025-04-23 09:36] LABS: Ferritin 229.0 ng/mL (8.0-252.0)
== END 2025-04-23 07:22 | disposition home or self-care (01) ==
PROVIDERS: PCP Family Medicine; Visit Provider Internal Medicine
DX: C18.9 Malignant neoplasm of colon, unspecified (principal)
CPT/HCPCS: 36415; 80053; 82728; 83540; 83550; 84703; 85025; 85652; 86304

== ENCOUNTER 2025-05-04 12:21 | Outpatient (OUT) | payer BC, SELFPAY ==
--- OUTSIDE RECORDS SUMMARY | 2025-05-04 12:30 | XMS_ITS | Clinical Summary ---
Author Organization [facility] Healthcare Address [address] [place] [address] Care Team Providers Care Watch Electrician Name Role Phone Melissa Worthy MD Primary Care Provider [phone] Allergies Active AllergyReactionsCriticalityNoted DateCommentsCodeineGI intolerance 02/19/20238950IfqvoikfhguVhws73/15/2022 Other Reaction(s): Nausea, Nausea And Vomiting Patient reports it was many years ago Medications MedicationSigDispense QuantityRefillsLast FilledStart DateEnd DateStatus ondansetron (Zofran) 8 MG tablet Take 8 mg by mouth every 8 (eight) hours if needed for nauseaActive latanoprost (Xalatan) 0.005 % ophthalmic solution INSTILL 1 DROP INTO EACH EYE IN THE EVENING AAORUCOG08/19/2024Active dorzolamide-timolol (Cosopt) 2-0.5 % ophthalmic solution INSTILL 1 DROP INTO EACH EYE TWICE DAILY OUHLARTH60/09/2025Active brimonidine (AlphaGAN P) 0.2 % ophthalmic solution INSTILL 1 DROP INTO EACH EYE TWICE DAILY WNHBEWOD29/03/2025Active loratadine (Claritin) 10 MG tablet Daily5Active pantoprazole (ProtoNix) 40 MG EC tablet Daily5Active omega-3 1000 MG capsule capsule Take by mouth4Active famotidine (Pepcid) 20 MG tablet Indications:LPRD (laryngopharyngeal reflux disease)Take 1 tablet (20 mg) by mouth at bedtime 90 tablet 5Active Active Problems ProblemNoted DateDiagnosed DateAbnormal LFTs12/20/2024hemotherapy-induced peripheral xoawbkxsrg14/16/2025Colon pofzlp3912/20/2024Encounter for chemotherapy dbyenjklnk93/16/5409Cyzesqlpxsnvqv75/16/2025Pharyngitis, ntxwngd1812/20/2024 Salivary gland vzyitheavfx49/16/2025Situational vfjzyrm7812/20/2024Female pelvic congestion lbjgxyoe50/17/2023laucoma of both eyes05/15/2022ostpartum bleeding ([facility])05/15/2022 Encounters DateTypeDepartmentCare UdabUddrrnzceve02/24/2025External Result Encounter [facility] External Department Unsolicited Timmy Jordan, 03/30/2025External Result Encounter [facility] External Department Unsolicited Carlyn Turner, ABDOULAYE from Last 3 Months Social History Tobacco UseTypesPacks/DayYears UsedDateSmoking Tobacco: NeverSmokeless Tobacco: Never Tobacco Cessation:Counseling Given: Not Answered Alcohol UseStandard Drinks/WeekCommentsYes0 (1 standard drink = 0.6 oz pure alcohol)occCommentsUnknownSex and Gender InformationValueDate Recorded Sex Assigned at BirthNot on fileLegal AiuZbvjeu33/15/2023 7:32 PM EDTGender IdentityNot on fileSexual OrientationNot on file Last Filed Vital Signs Vital SignReadingTime TakenCommentsBlood Rxtosrtt553/8080912/21/2024 8:32 AM EDT Swrda790212/21/2024 8:32 AM EDTTemperature--Respiratory Rate--Oxygen Saturation-- Inhaled Oxygen Concentration--Zsmthx89.1 kg (159 lb)12/21/2024 8:32 AM EDTHeight 162.6 cm (5' 4 )02/19/2023 11:44 AM EDTBody Mass Index27.29002/19/2023 11:44 AM EDT Plan of Treatment Health MaintenanceDue DateLast DoneCommentsCT Pgfylpobfynk1966FIT-DNA 1965FIT1965FOBT1966Vajjsfasxieid1966Pap Smear1987 Cervical Cancer Vdtkdzdah11/28/1996HPV/Zdrrxr7204/03/19963041Stdwbnptf64/ Influenza Vaccine (#1)511/5434Mkdzbncbpek75, 2Colorectal Cancer Jwhuqrxst29/01/2033 Procedures Procedure NamePriorityDate/TimeAssociated DiagnosisCommentsPET/CT SKULL BASE TO MID THIGH03/30/2025 11:34 AM EDT GLUCOSE POCT PIHBVEQQINSYaeghdz60/24/2025 8:38 AM EDT from Last 3 Months Results * PET/CT skull base to mid thigh (03/30/2025 11:34 AM EDT)Anatomical Region LateralityModalityBodyComputed TomographySpecimen (Source)Anatomical Location / LateralityCollection Method / VolumeCollection TimeReceived Time03/30/2025 11:34 AM EDT Impressions 03/30/2025 11:46 AM EDT 1. ??Bilateral pulmonary nodules largest appear FDG avid suspicious for metastatic disease. ?? 2. ??Abnormal activity is seen involving the cervix suspicious for malignancy. ??Correlation with physical exam is suggested. ?? 3. ??Abnormal activity is seen involving the anorectal junction possibly relating to residual malignancy. ??Correlation with direct visualization is suggested. ?? 4. ??Focal area of abnormal activity is seen involving the right lobe the liver along the dome. ??This may relate to the abnormality seen by CT. ??Complete evaluation with multiphase liver CT or MRI is recommended. ? Impression dictated by: Andres Wallis Jr., D.O. ??03/30/2025 11:44 AM ? Dictation Location: RADIO-PC-22 ? Transcribed By: ? PWS ?03/30/25 1144 ? Dictated By: ?Andres Wallis Jr, DO ?03/30/25 1134 ? Signed By: <Electronically signed by Andres Wallis Jr, DO in OV> ?03/30/25 1144 Narrative 03/30/2025 11:46 AM EDT [facility] ?[facility] [place] ?[address] ? [place] [address] ?Nuclear Medicine Report ? Signed ? Patient: Marysol Jacobson ?MR#: [id number] ?? 22 ? : 1965 ?Acct:[id number] ? Age/Sex: 59 / F ?ADM Date: 03/30/25 ? Loc: PE ?Room: ?Type: REG RCR ?? Attending Dr: Carlyn Turner CORPORATE EXECUTIVE ?? Copies to: Andres Wallis Jr, DO ?? Carlyn Turner APRN ?? Timmy Jordan II, DO ? Ordering Provider: Timmy Jordan II, DO ?? Date of Service: 03/30/25 ?? PET/PET tumor init tx strat sb-mt: C18.9 - Malignant neoplasm of colon, unspecified ? PET/CT FUSION IMAGING ? CLINICAL INFORMATION: Colon cancer with lung nodules. ? COMPARISON : Outside CT chest, abdomen and pelvis 03/17/2025 ? TECHNIQUE: Noncontrasted CT scan from the base of the skull to the upper thigh followed by PET imaging. ??Multiplanar PET/CT fusion images. ? Blood Glucose : 100 mg/dL ? The F-18 FDG ??10.98mCi. ? FINDINGS: ? Neck: No focal abnormal activity. ? Chest:Bilateral pulmonary nodules, SUV max 4.4. ??Most of these are too small for PET CT characterization. ??No abnormal activity is seen involving the mediastinum or hilar regions. ? Abdomen/pelvis: Focal area of abnormal activity is seen involving the right lobe of the liver along the dome, SUV max of 4.2. ??Abnormal activity is seen involving the cervix, SUV max of 4.6. ??Abnormal activity is seen involving the anorectal region. ??SUV max of 4.8. ? Soft tissue/bones: No abnormal activity. ? CT findings: No pneumothorax. ??No pericardial or pleural effusions. ??No free air or free fluid. ? PET/PET tumor init tx strat sb-mt ?? Procedure Note Andres Wallis Jr., - 03/30/2025 [facility] [place] [address] [place] [address] Nuclear Medicine Report Signed Patient: Marysol JacobsonMR#: [id number] 22 : 1965Acct:[id number] Age/Sex: 59 / FADM Date: 03/30/25 Loc: Room:Type: [facility] RCR Attending Dr: Carlyn Turner APRN [...] Jr., D.O. 03/30/2025 11:44 AM Dictation Location: [place] [address] Transcribed By: [facility] 03/30/25 1144 Dictated By: Andres Wallis Jr, DO 03/30/25 1134 Signed By: <Electronically signed by Andres Wallis Jr DO inOV> 03/30/25 1144 Authorizing ProviderResult TypeResult StatusTimmy Jordan [facility] CT PROCEDURESFinal Result * GLUCOSE POCT GLUCOMETERS (03/30/2025 8:38 AM EDT)ComponentValueRef RangeTest MethodAnalysis TimePerformed AtPathologist SignatureGLUCOSE POC EMNFUAEIIGX556 mg/dL03/30/2025 9:07 AM EDTFIRELANDSComment: Random Glucose Reference Range is dependent on time and content of last meal. Glucose of more than 200 mg/dL in a nonstressed, ambulatory subject supports the diagnosis of Diabetes Mellitus. Specimen (Source)Anatomical Location / LateralityCollection Method / Volume Collection TimeReceived TimeBlood (Blood)03/30/2025 8:38 AM EDT03/30/2025 9:07 AM EDT Narrative Authorizing ProviderResult TypeResult StatusBrittanysamantha Betancur Johnny NPLAB BLOOD ORDERABLESFinal ResultPerforming OrganizationAddressCity/State/ZIP CodePhone Number [facility] [place] [address], from Last 3 Months Insurance Care Teams Team MemberRelationshipSpecialtyStart DateEnd Melissa Worthy MD [address] [place] [phone] PCP - GeneralFamily Medicine12/14/24
--- OUTSIDE RECORDS SUMMARY | 2025-05-04 12:35 | XMS_ITS | CCD ---
Author Organization [facility] Care Team Providers Care Bar Attendant Name Role Phone DO Isaías Jordan II Attending Provider [phone] DO Clint Jean Baptiste Referring Provider MD Sandro Chin Primary Care Provider DO Isaías Jordan II Attending Provider [phone] NON STAFF Primary Care Provider DO Clint [...] ., DR CLINT Ernst Consulting Unavaila ble GRDUGLAS ., DR CLINT Ernst Admitting Unavaila ble GRILLIIgnacio ., DR CLINT Ernst Attending Unavaila ble GIUSEPPE, DR SANDRO Ernst Primary Care Unavailable GRILLIS ., DR CLINT Ernst Consulting Unavaila ble ZIEBER, DR NEDA Gallo Consulting Unavailable KODI, CANDELARIO Consulting Unavailable SHARP, BERTHA Consulting Unavailable KUCHIPUDI, JOLENE Consulting Unavailable CHIN, DR SANDRO Ernst Primary Care Unavailable KATKO, IVRING Babin Admitting Unavailable KATARMIN, IRVING Babin Attending [...] Unavailable DO Clint Jean Baptiste Referring Provider [phone] MD Sandro Chin Primary Care Provider OLIVIA Turner Attending Provider DO Clint Jean Baptiste Referring Provider MD Sandro Chin Primary Care Provider [phone] OLIVIA Turner Attending Provider CLINT JEAN BAPTISTE Attending Unavailable CHIN, SANDRO E Referring Unavailable CHIN, SANDRO E Primary Care Unavailable CLINT JEAN BAPTISTE Attending Unavailable CHIN, SANDRO E Referring Unavailable CHIN, SANDRO E Primary Care Unavailable MASHA HOWARD Attending Unavailable CHIN, SANDRO E Referring Unavailable CHIN, SANDRO E Primary Care Unavailable Sandro Chin MD Primary Care Provider Clint Jean Baptiste DO Referring Provider Sandro Chin MD Primary Care Provider Randy Turner APRN Attending Provider Sandro Chin MD Primary Care Provider CONSTANTINO MARTINEZ Attending Unavailable Sandro Chin MD Primary Care Provider Sandro Chin MD Attending Provider Roz Borrego DO Attending Provider Roz Borrego DO Other Provider [phone] Sandro Chin MD Primary Care Provider Sandro Chin MD Attending Provider Isaías Jordan DO Attending Provider Clint Jean Baptiste DO Referring Provider Randy Turner APRN Attending Provider Sandro Chin MD Primary Care Provider ENDER SANCHEZ Referring Unavailable CHIN, SANDRO Primary Care Unavailable HIWOTANTONIO VELA Referring Unavailable CHIN, SANDRO Primary Care Unavailable MINGO CHINIA Primary Care Physician [phone] Clint LEAVITT Attending Unavailable NILIvory, Clint R Attending Unavailable Chin, Sandro E Primary Care Unavailable Ly, Roz L Admitting Unavailable Ly Roz L Attending Unavailable Giuseppe, Sandro E Admitting Unavailable Chin, Sandro E Primary Care Unavailable Sandro Chin E Attending Unavailable Isaías Jordan II Attending Unavaila ble Clint Jean Baptiste Referring Unavailable Chin, Sandro E Primary Care Unavailable Isaías Jordan II Admitting Unavaila ble Allergies Allergy ClassificationReported Allergen(s)Allergy TypeDate of OnsetReaction(s) Facility (19 sources)HYDROcodone; Translations: [Hydrocodone]Drug Hoeavpy43-84-7430Scfrwm And Vomiting, Nausea (finding)[facility] (1 source)Misc-Food; Translations: [Misc-Food]Food allergy (disorder)[facility] (10 sources)Codeine; Translations: [CODEINE]Drug Tjgwjrw07-29-1402UZ Disturbance, GI intolerance, Gastrointestinal irritation (disorder)[facility] Repository Medications Current Medications MedicationDrug Class(es)DatesSig (Normalized)Sig (Original)acetaminophen 500 mg oral tablet (17 sources)Start: 69-99-4452ywqd 2 tablets by mouth once daily as needed for painAcetaminophen 500 mg Tablet Active 1000 MG PO Daily as needed for Pain May 03, 2022 12:00am Complies with drug therapyStart: 17-51-8496obea 1000 mg by mouth once dailyAcetaminophen Active 1000 MG PO Daily May 03, 2022 12:00amBeta-Glucan 500 mg capsule (1 source)Start: 88-41-7628micvcsfblap tartrate 2 mg/ml ophthalmic solution (20 sources)alpha-Adrenergic AgonistStart: 18-21-6818nsje 1 drop(s) into the eye(s) twice dailybrimonidine (AlphaGAN P) 0.2 % ophthalmic solution INSTILL 1 DROP INTO EACH EYE TWICE DAILY DIRECTED 11/06/2024 ActiveStart: 05-02-2022 take 1 drop(s) into the eye(s) twice dailybrimonidine Opth 0.2% Aurora 1 drop(s), Eye-Both, BID, Refill(s) 0 Start Date: 05/02/22 Status: Ordered Repeat number: 1 Start: 00-23-5046omtd 1 drop(s) into the eye(s) twice dailyBrimonidine 0.2 % Drops Active 1 DROPS EYE-BOTH Twice daily May 02, 2022 12:00am Complies with drug therapyStart: 08-13-3662dnac 1 drop(s) into the eye(s) twice daily Brimonidine 0.2 % Drops Active 1 DROPS EYE-BOTH Twice daily May 02, 2022 12:00amStart: 46-48-8016vegt 1 drop(s) into the eye(s) twice dailyBrimonidine Active 1 DROPS EYE-BOTH Twice daily May 02, 2022 12:00amStart: 01-20-2022 take 0.2 drop(s) into the eye(s) at bedtimebrimonidine (ALPHAGAN) 0.2 % ophthalmic solution Administer 0.2 drops to both eyes in the morning and at bedtime. 01/20/2022 Activecholecalciferol 0.025 mg oral capsule (17 sources)Vitamin DStart: 75-49-4719focw 1 capsule by mouth once daily Cholecalciferol (Vitamin D3) 25 mcg (1,000 unit) Capsule Active 25 MCG PO Daily May 2721:00am Complies with drug therapycholecalciferol, vitamin D3, (VITAMIN D3 ORAL) (3 sources)cholecalciferol, vitamin D3, (VITAMIN D3 ORAL) Take 1,000 mg by mouth. Activechondroitin sulfates 400 mg / glucosamine hydrochloride 500 mg oral tablet (3 sources)take 1 tablet by mouth three times dailyglucosamine-chondroitin 500- 400 mg tablet Take 1 tablet by mouth 3 (three) times a day. ActivediazePAM 5 mg oral tablet (1 source)BenzodiazepineStart: 03-03-2024 End: 36-76-2695bgrj 1 tablet by mouth once, then take 1 tablet by mouth every three hoursdiazePAM (VALIUM) 5 mg tablet Indications: History of colon cancer Take 1 tablet (5 mg total) by mouth once for 1 dose. Take 3 hr prior to procedure 1 tablet 03/03/2024 03/03/2024 Activedocosahexaenoic acid 120 mg / eicosapentaenoic acid 180 mg oral capsule (3 sources)Start: 61-47-4949xsuyq-3 1000 MG capsule capsule Take by mouth 01/19/2024 ActiveOmega 8-Uup-Klx-Fish Oil (7 sources)Start: 79-06-2491qdnp 300-1000 mg by mouth once dailyStart: 13-84-1268siao 300-1000 mg by mouth once dailyOmega 6-Vgp-Jry-Fish Oil (Fish Oil) 300-1,000 mg capsule Active 1 CAP PO Daily January 19, 2024 12:00am Complies with drug therapyStart: 58-46-8566leby 300-1000 mg by mouth once dailyOmega 0-Adb-Spv-Fish Oil (Fish Oil) 300-1,000 mg capsule Active 1 CAP PO Daily January 18, 2024 11:00pmStart: 43-33-6018igfi 300-1000 mg by mouth once dailyOmega 7-Ncz-Ske-Fish Oil (Fish Oil) 300-1,000 mg capsule Active 1 CAP PO Daily January 19, 2024 12:00amdorzolamide 20 mg/ml / timolol 5 mg/ml ophthalmic solution (20 sources)Carbonic Anhydrase Inhibitor, beta-Adrenergic BlockerStart: 44-46-3155zwnw 1 drop(s) into the eye(s) twice dailyDorzolamide-Timolol 22.3-6.8 mg/mL drops Active 1 DROPS EYE-BOTH Twice daily May 02, 2022 12:00am Complies with drug therapyStart: 99-32-1987csph 1 drop(s) into the eye(s) twice dailyDorzolamide-Timolol 22.3-6.8 mg/mL drops Active 1 DROPS EYE-BOTH Twice daily May 02, 2022 12:00amStart: 45-80-7193wdwylmaypof-timoloL (COSOPT) 22.3-6.8 mg/mL ophthalmic solution Administer 6.8 drops to both eyes in the morning and at bedtime. 02/06/2022 ActiveStart: 62-54-8106wvoeqlrxlgx-timolol (Cosopt) 2-0.5 % ophthalmic solution INSTILL 1 DROP INTO EACH EYE TWICE DAILY DIRECTED 11/12/2024 Activefamotidine 20 mg oral tablet (3 sources)Histamine-2 Receptor AntagonistStart: 12-21-2024 End: 95-02-0220etrh 1 tablet by mouth at bedtimefamotidine (Pepcid) 20 MG tablet Indications: LPRD (laryngopharyngeal reflux disease) Take 1 tablet(20 mg) by mouth at bedtime 90 tablet 12/21/2024 Activelatanoprost 0.05 mg/ml ophthalmic suspension (20 sources)Prostaglandin AnalogStart: 15-52-4338sxzf 1 drop(s) into the eye(s) twice dailylatanoprost 0.005% ophthalmic emulsion 1 drop(s), Eye-Both, BID, Refill(s) 0 Start Date: 04/13/25 Status: Ordered Repeat number: 1Start: 96-75-0586lhov 1 drop(s) into the eye(s) in the eveninglatanoprost (Xalatan) 0.005 % ophthalmic solution INSTILL 1 DROP INTO EACH EYE IN THE EVENING DIR ECTED 04/24/2024 ActiveStart: 31-95-8639jbmq 1 drop(s) into the eye(s) once daily in the eveningLatanoprost 0.005 % Drops Active 1 DROPS EYE-BOTH Every evening May 02, 2022 12:00am Complieswith drug therapyStart: 05-02-2022 take 1 drop(s) into the eye(s) once daily in the eveningLatanoprost 0.005 % Drops Active 1 DROPS EYE-BOTH Every evening May 02, 2022 12:00amStart: 27-26-3522drqc 1 drop(s) into the eye(s) once daily in the eveningLatanoprost Active 1 DROPS EYE-BOTH Every evening May 02, 2022 12:00amStart: 32-12-2432gker 0.005 drop(s) into the eye(s) once dailylatanoprost (XALATAN) 0.005 % ophthalmic solution Administer 0.005 drops to both eyes nightly. 12/22 Activetake 1 drop(s) into the eye(s) once dailyLatanoprost 0.005 % 1 drop once a day each eye Activemv-mn/om3/dha/epa/fish/lut/katheryn (OCUVITE ADULT 50 PLUS ORAL) (3 sources)mv-mn/om3/dha/epa/fish/lut/katheryn (OCUVITE ADULT 50 PLUS ORAL) Take by mouth daily. Activeomega 2-cpx-onf-fish oil (Fish OiL) 300-1,000 mg capsule (3 sources)omega 1-bac-web-fish oil (Fish OiL) 300-1,000 mg capsule Take by mouth. Activeomeprazole 20 mg delayed release oral capsule (18 sources)Proton Pump InhibitorStart: 01-16-2023 End: 21-23-6140wsxe 1 capsule by mouth every twenty-four hours as needed omeprazole (PriLOSEC) [address] capsule Take 20 mg by mouth Daily as needed 01/16/2023 12/21/2024 Discontinued (Therapy completed)Start: 08-05-2022 End: 22-87-5396fncs 20 mg by mouth once dailyOmeprazole Magnesium (Prilosec) 10 mg Susp,Delayed Release For Recon Discontinued 20 MG PO Daily 60January 2022 1:00am December 14, 2024 9:54ampantoprazole (11 sources)Proton Pump InhibitorStart: 79-50-9736agcnpmptvkwk Refills(s) 0 Start Date: 04/13/25 Status: Ordered Repeat number: 1Start: 66-38-2410szca 1 tablet by mouth once dailyStart: 12-14-2024 End: 63-98-9239kolj 1 tablet by mouth once dailyPantoprazole 40 mg tablet,delayed release (DR/EC) Discontinued 40 MG PO Daily December 14, 2024 12:00am March 10, 2025 9:29amsulfamethoxazole 800 mg / trimethoprim 160 mg oral tablet (1 source)Dihydrofolate Reductase Inhibitor Antibacterial, Sulfonamide AntimicrobialStart: 12-01-0323jujv 1 tablet by mouth every twelve hoursBactrim DS 800-160 MG 1 tablet Orally Twice a day for 10 day(s) May, Active Vitamin D3 (1 source)Vitamin D3 ActiveVitamin D3 1000 intl units (25 mcg) Tab (1 source)Start: 95-51-5259smho 1 tablet by mouth once dailyVitamin D3 1000 intl units (25 mcg) Tab 25 mcg = 1 tab(s), Oral, Daily, Refills(s) 0 Start Date: 04/13/25 Status: Ordered Repeat number: 1 Completed/Discontinued Medications MedicationDrug Class(es)DatesSig (Normalized)Sig (Original)ascorbic acid 1000 mg extended release oral tablet (17 sources)Vitamin CStart: 05-27-2022 End: 70-25-7645pdpe 1 capsule by mouth once dailyAscorbic Acid (Vitamin C) 1,000 mg Capsule, Extended Release Discontinued 1 CAP PO Daily May 27, 2022 1:00am November 17, 2023 9:47amStart: 05-27-2022 End: 18-47-1914ufst 1 capsule by mouth once dailyAscorbic Acid (Vitamin C) Discontinued 1 CAP PO Daily May 27, 2022 1:00am November 17, 2023 9:47am Start: 97-87-0085armk 1 capsule by mouth once dailyAscorbic Acid (Vitamin C) Active 1 CAP PO Daily May 27, 2022 1:00amStart: 77-17-8333zoqk 1 capsule by mouth once dailyAscorbic Acid (Vitamin C) Active 1 CAP PO Daily May 27, 2022 12:00amCarica Papaya (Papaya Enzyme) Tablet (12 sources)Start: 08-19-2022 End: 51-53-5032ynmh 1 tablet by mouth once dailyCarica Papaya (Papaya Enzyme) Tablet Discontinued 1 TAB PO Daily August 19, 2022 1:00am June 25, 2023 12:38pmStart: 08-19-2022 End: 28-49-1672uyvf 1 tablet by mouth once dailyCarica Papaya (Papaya Enzyme) Tablet Discontinued 1 TAB PO Daily August 19, 2022 12:00am June 25, 2023 11:38amStart: 54-25-5794nmkn 1 tablet by mouth once dailyCarica Papaya (Papaya Enzyme) Tablet Active 1 TAB PO Daily August 19, 2022 12:00am celecoxib 200 mg oral capsule (20 sources)Nonsteroidal Anti-inflammatory DrugStart: 02-19-2023 End: 35-27-0928fowa 1 capsule by mouth once dailyCelecoxib (Celebrex) 200 mg capsule Discontinued 200 MG PO Daily 60 July 01, 2024 12:29pm April 04, 2025 1:18pmglucosamine 500 mg oral tablet (7 sources)Start: 01-19-2024 End: 42-51-9416plvo 1 tablet by mouth once dailyGlucosamine Hcl 500 mg tablet Discontinued 500 MG PO Daily January 19, 2024 12:00am July 01, 2024 12:06pm administer with a gchwBpqqq-Yi-6-Lsa-Rym-Ejgkhqh-Ast (11 sources)Start: 05-02-2022 End: 29-16-1546bpav 3 capsules by mouth once fmqoaOzicj-Cy-6-Bxo-Qfe-Cvkouni-Ast Discontinued 1 CAP PO Daily May 02, 2022 12:00am April 2:39pm Start: 05-02-2022 End: 84-19-9456qbqj 3 capsules by mouth once phpgxAyrrn-Zo-7-Hrd-Fay-Fzgjnso-Ast Discontinued 1 CAP PO Daily May 01, 2022 11:00pm April 1:39pm Monya-Bg-5-Omj-Vmb-Sbkgnzr-Ast 1,309-973-05-80 mg Capsule (6 sources)Start: 05-02-2022 End: 90-31-1261Putef-Jn-9-Cmd-Rbn-Qmlqozg-Qex 1,753-898-19-80 mg Capsule Discontinued 1 CAP PO Daily April 12:00am May 03, 2022 2:39pm Start: 05-02-2022 End: 05-19-6923Wronn-Cr-5-Hfa-Exb-Rceoxlx-Dnr 1,788-644-02-80 mg Capsule Discontinued 1 CAP PO Daily April 11:00pm May 03, 2022 1:39pm loratadine 10 mg oral tablet (8 sources)Start: 12-14-2024 End: 31-60-9320ftah 1 tablet by mouth once dailyLoratadine (Claritin) 10 mg tablet Discontinued 10 MG PO Daily December 14, 2024 12:00am January 20, 2025 1:11pmmagnesium sulfate 0.0277 meq/ml / potassium sulfate 0.0374 meq/ml / sodium sulfate 0.257 meq/ml oral solution (1 source)Start: 03-19-2023 End: 49-05-5060digy 177 mL by mouth in the morningsodium,potassium,mag sulfates (SUPREP) 17.5-3.13-1.6 gram recon soln Take 177 mL by mouth in the morning and 177 mL before bedtime. 4956 mL 03/19/2023 03/03/2024 Discontinued (Therapy completed)ondansetron 8 mg oral tablet (20 sources)Serotonin-3 Receptor AntagonistStart: 05-03-2022 End: 97-48-1539noeh 1 tablet by mouth every eight hours as needed for nausea Ondansetron Hcl 8 mg tablet Discontinued 8 MG PO Q8H as needed for Nausea May 03, 2022 12:00am March 24, 2023 10:40amprochlorperazine 10 mg oral tablet (12 sources)PhenothiazineStart: 08-05-2022 End: 37-82-4187tztj 1 tablet by mouth every six hours as needed for nausea and vomitingProchlorperazine Maleate (Compazine) 10 mg Tablet Discontinued 10 MG PO Q6H as needed for Nausea And Vomiting 60 August 05, 2022 1:00am March 24, 2023 10:40amsod sulf-pot chloride-mag sulf 1.479-0.188- 0.225 gram tablet (1 source)Start: 03-19-2023 End: 72-27-9757lei sulf-pot chloride-mag sulf 1.479-0.188- 0.225 gram tablet Indications: Primary malignant neoplasm of sigmoid colon (CMS-HCC) Please see instructional sheet given by physicians office. 24 tablet 03/19/2023 03/02/2024 DiscontinuedVit C-E-Zinc Ac-Ezlo-Hmo-Zeax (Icaps Areds2) 250 mg-200 unit -12.5 mg-1 mg Capsule (10 sources)Start: 06-25-2023 End: 59-13-3158bjvx 2 capsules by mouth once dailyVit C-E-Zinc Bz-Otbn-Fzr-Zeax (Icaps Areds2) 250 mg-200 unit -12.5 mg-1 mg Capsule Discontinued 2 CAP PO Daily June 25, 2023 12:00am November 17, 2023 8:48amStart: 06-25-2023 End: 84-03-0148uxcg 2 capsules by mouth once dailyVit C-E-Zinc Jo-Fcer-Uts-Zeax (Icaps Areds2) 250 mg-200 unit -12.5 mg-1 mg Capsule Discontinued 2 CAP PO Daily June 25, 2023 1:00am November 17, 2023 9:48amStart: 45-09-4197dzoi 2 capsules by mouth once dailyVit C-E-Zinc Lc-Vrxu-Icy-Zeax (Icaps Areds2) 250 mg- 200 unit -12.5 mg-1 mg Capsule Active 2 CAP PO Daily June 25, 2023 1:00am Start: 05-79-2745wrei 2 capsules by mouth once dailyVit C-E-Zinc Yo-Aebj-Bmo-Zeax (Icaps Areds2) 250 mg-200 unit -12.5 mg-1 mg Capsule Active 2 CAP PO Daily June 25, 2023 12:00amVitamin A-Vitamin C-Vit E-Min (Ocuvite) Tablet (17 sources)Start: 05-02-2022 End: 25-31-1503qtaj 1 tablet by mouth once dailyVitamin A-Vitamin C-Vit E-Min (Ocuvite) Tablet Discontinued 1 TAB PO Daily May 02, 2022 12:00am May 27, 2022 10:27amStart: 05-02-2022 End: 41-05-4701swgi 1 tablet by mouth once dailyVitamin A-Vitamin C-Vit E-Min (Ocuvite) Tablet Discontinued 1 TAB PO Daily May 01, 2022 11:00pm May 27, 2022 9:27am Problems Active Problems Problem ClassificationProblemDateDocumented DateEpisodic/ChronicAnxiety disorders (12 sources)Anxiety; Translations: [Other specified anxiety disorders]Onset: 603773-76-7731KqsvfqrAnpunbejg infection; unspecified site (1 source)Other specified bacterial agents as the cause of diseases classified elsewhereEpisodicCancer of colon (20 sources)Malignant tumor of colon; Translations: [Malignant neoplasm of colon, unspecified]Onset: 081368-75-1855BsmuinpZyqpzm of colon (4 sources)Personal history of other malignant neoplasm of large intestine; Translations: [History of malignant neoplasm of colon]Onset: 03-03-2024 46-64-7974OckbacewLglybdqyub associated with dizziness or vertigo (1 source)Benign paroxysmal vertigo, unspecified earEpisodicDiseases of mouth; excluding dental (14 sources)Hypertrophy of salivary gland; Translations: [Hypertrophy of salivary gland]Onset: 807858-45-6743JjcwdwvzM Codes: Cut/pierceb (1 source)Contact with contaminated hypodermic needle, initial encounter; Translations: [CNTCT CONTAMINAT HYPODRM NEEDL INIT]Onset: 46-53-0440Dwmnrdgb Esophageal disorders (8 sources)Laryngopharyngeal reflux; Translations: [Gastro-esophageal reflux disease without esophagitis]Onset: 847788-05-6098VfgqukbPpujwlrx (9 sources)Unspecified glaucoma; Translations: [Bilateral glaucoma]Onset: 980639-12-6118CborjrhRafnindzajn chemotherapy; radiotherapy (20 sources)Patient encounter status; Translations: [Encounter for antineoplastic chemotherapy]Onset: 764425-98-7589YjudhheZdrx wounds of extremities (4 sources)Puncture wound without foreign body of left index finger without damage to nail, initial encounter;Translations: [PW W/O FB LT IF W/O DMG NAIL INIT]Onset: 95-62-5920ZwdrkgbsFqwpxklzqvvncq (11 sources)Osteoarthritis; Translations: [Unspecified osteoarthritis, unspecified site]Onset: 446743-62-1416PadopxlMarxo lower respiratory disease (1 source)Solitary pulmonary nodule; Translations: [Solitary pulmonary nodule] Onset: 83-78-5531GuyeqtidFngtr nervous system disorders (18 sources)Peripheral neuropathy due to and following chemotherapy; 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 Other nervous system disorders (6 sources)Drug-induced polyneuropathy; Translations: [Polyneuropathy due to other toxic agents]55-62-7218RmjlfevDtdxf nutritional; endocrine; and metabolic disorders (1 source)Kpmyhiqrqb45-87-0569LnjnsyddYkgkg nutritional; endocrine; and metabolic disorders (1 source)Overweight in adulthood with body mass index of 25 or more but less than 6921-90-3751SouhacpcNbfqf upper respiratory disease (10 sources)Chronic pharyngitis; Translations: [Chronic pharyngitis]Onset: 415044-24-5264IfayfynNahzy upper respiratory disease (2 sources)Chronic pharyngitis; Translations: [Chronic pharyngitis]12-14-2024 ChronicOther upper respiratory disease (6 sources)Feeling of lump in throat; Translations: [Globus sensation]12-21-2024 EpisodicOther upper respiratory infections (1 source)Acute sinusitis, unspecifiedEpisodicResidual codes; unclassified (1 source)Contact with and (suspected) exposure to potentially hazardous body fluids; Translations: [CONTACT AND EXPOS POTENTL HAZ BDY FLUID]Onset: 09-18-2022 EpisodicResidual codes; unclassified (1 source)Other specified postprocedural states; Translations: [Other specified postprocedural states]Onset: 61-29-8257NouybgkiViiahqnnk malignancies (1 source)Secondary and unspecified malignant neoplasm of lymph node, unspecified; Translations: [SEC AND UNSMAL JARON LYMPH NODE UNS]Onset: 04-22-2022 ChronicUnclassified (1 source)CONTACT W/AND (SUSP) EXPOS COVID-19; Translations: [CONTACT W/AND (SUSP) EXPOS COVID-19]Onset: 86-78-5724Nmhcnpuslbbe (1 source)Post-opOnset: 88-32-6189Ebkzghsenihb (1 source)ProcedureOnset: 06-63-8829Nxoevinlwwvt (1 source)PORT REMOVALOnset: 97-80-3511Wublovjdzbdr (2 sources)C18.9 - Malignant neoplasm of colon, unspecifiedUnclassified (1 source)C18.9 - Malignant neoplasm of colon, unspecified,R91.8 - Other nonspecific abnormal finding of lung field Past or Other Problems Problem ClassificationProblemDateDocumented DateEpisodic/ChronicAbdominal pain (9 sources)Generalized abdominal pain; Translations: [Left lower quadrant pain] Onset: 36-12-8923EjcoibjmGstyr aftercare (1 source)Other supervisor intermediates (current) drug therapy; Translations: [OTH ASSISTED CURRENT DRUG THERAPY]Onset: 21-50-6202KcphmxdjLztuf circulatory disease (1 source)Elevated blood-pressure reading, without diagnosis of hypertension; Translations: [ELEVATED BP READING W/O DX HTN]Onset: 31-98-2356RvxdzlbgRmyrg complications of ; puerperium affecting management of mother (7 sources) hemorrhage; Translations: [Other immediate hemorrhage]Onset: 660581-75-9405HmcseokbMrodk female genital disorders (7 sources)Pelvic congestion syndrome; Translations: [Other specified conditions associated with female genital organs and menstrual cycle]Onset: 02-20-2023 94-04-0726NkhbrbfvPztit nutritional; endocrine; and metabolic disorders (1 source)Abnormal weight loss; Translations: [ABNORMAL WEIGHT LOSS]Onset: 51-60-9151GkcelamoEunbc screening for suspected conditions (not mental disorders or infectious disease) (20 sources)Liver function tests abnormal; Translations: [Other specified abnormal findings of blood chemistry]Onset: 788376-40-2273BdjpbupsOzepwndw codes; unclassified (1 source)Past history of procedure; Translations: [Other specified postprocedural states]48-17-5617DvltgtkbAsquummma and history of mental health and substance abuse codes (1 source)Personal history of nicotine dependence; Translations: [PERSONAL HISTORY OF NICOTINE DEPEND]Onset: 56-96-6056Csbuwayv Results Test NameValueInterpretationReference RangeFacilityAmbulatory Visit Summaryon 44-62-9523Pmjelmhluk Visit SummaryAmbulatory Visit Summary MARYSOL JACOBSON :1965 Visit Date:04/13/2025 Ambulatory Visit Instructions Your Diagnosis Recurrent carcinoma of colon Your Care Team Attending Physician - DAGMAR EMMANUEL, Clint aGllo Primary Care Physician - GIUSEPPE EMMANUEL, SANDRO [...] section, EGD - esophagogastroduodenoscopy, Extraction of wisdom tooth,Repair of left inguinal hernia. Discharge Vitals Heart [...] ophthalmic emulsion) 1 Drops Both eyes 2 timesa day Contact prescribing physician if questions or [...] signed up for this yet, please contact [employer] at [phone] to get signed up today. Language Information Language assistance services are available as needed. [facility] NEEDLE BIOPSY LUNG PERCUTANEOUS W IMAGING GUIDANCEon 72-93-0799VA NEEDLE BIOPSY LUNG PERCUTANEOUS W IMAGING GUIDANCEIMPRESSION: 1. Successful core biopsy of right upper lobe anterior pulmonary nodule. 2. Blood patch was injected after biopsy for pneumothorax prevention. HISTORY: MARYSOL JACOBSON is a Female of 60 years age. [...] in stable condition. Electronically signed by Ender Sanchez Interpreted by: Ender Sanchez MD Signed by: Ender Sanchez MD 04/12/25 Final resultNoMiddle Park Medical Centerurgical Specimenon 04-11-2025 Surgical [facility] [address] [place] [address] FINAL SURGICAL PATHOLOGY REPORT Patient Name: MARYSOL JACOBSON Accession No: [id number] Age Sex: 1965 Location: DIS Account No: [id number] Collected: 04/11/2025 Med Rec No: [id number] Received: 04/12/2025 Attend Phys: ENDER SANCHEZ Completed: 04/14/2025 Perform Phys: ISAÍAS JORDAN FINAL [...] biopsy bag where the core is present. PSW/BEHSU CPT: 86756 X1 04873 X2 27004 X1 J MIC DONNELLY M.D. 04/14/2025 Electronically signed out by [address] [place], [place] [address]Comment on above:Performed By: #### PRESLEY #### [facility] [address] [place] [address] OT CHEST (2 VW)on 34-32-8925YA CHEST (2 VW)IMPRESSION: 1. No evidence of pneumothorax or pleural [...] structures are unremarkable. Electronically signed by Ender Sanchez Interpreted by: Ender Sanchez MD Signed by: Ender Sanchez MD 04/11/25 Final resultNoUCHealth Grandview HospitalGLUCOSE POCT GLUCOMETERSon 30-06-6158Lfzsrht [Mass/Vol]100 mg/dLSaint Luke's Health SystemComment on above:Random Glucose Reference Range is dependent on time and content of last meal. Glucose of more than 200 mg/dL in a nonstressed, ambulatory subject supports the diagnosis of Diabetes Mellitus. [facility] SystemGlucose Poct Glucometerson 13-12-3264Atckmlq [Mass/Vol]100 mg/dL NormalThe Crawley Memorial Hospital Physician GroupComment on above:Result Comment: Random Glucose Reference Range is dependent on time and content of last meal. Glucose of more than 200 mg/dL in a nonstressed, ambulatory subject supports the diagnosis of Diabetes Mellitus. PERFORMED BY: [place] [address] PATHOLOGIST FAA CERTIFIED POWERPLANT MECHANIC CECY RODRIGUEZ M.D.Performed By: #### GLULS #### Point of Care testing ,PET tumor init tx strat sb-mton 35-75-6954BMH tumor init tx strat sb-mt [facility] [place] [address] [place], [place] [id number] Nuclear Medicine Report Signed Patient: Marysol Jacobson MR#: [id number] 22 : 1965 Acct:[id number] Age/Sex: 59 / F ADM Date: 03/30/25 Loc: Room: Type: [facility] RCR Attending Dr: Randy Turner APRN Copies to: Andres Wallis Jr, [...] recommended. Impression dictated by: Andres Wallis Jr., DChey 03/30/2025 11:44 AM Dictation Location: [place] [address] Transcribed By: [facility] 03/30/25 1144 Dictated By: Andres Wallis Jr, DO 03/30/25 1134 Signed By: 03/30/25 1144[facility] Physician GroupBasophils Auto (Bld) [#/Vol] Ordered By: Isaías Jordan on 41-83-1894Wuutpaogv (Bld) [#/Vol]0.0 10 3/uL 0.0-0.1FProMedica Toledo HospitalBasophils/100 WBC Auto (Bld)Ordered By: Isaías Jordan on 16-03-5344Rhyxbylht/100 WBC (Bld)0.6 %0.2-2.0[facility] TrumbullEosinophils/100 WBC Auto (Bld)Ordered By: Isaías Jordan on 71-64-1544Leiorltqffk/100 WBC (Bld)2.1 %0.9-7.0[facility] TrumbullErythrocyte distribution width Auto (RBC) [Ratio]Ordered By: Isaías Jordan on 01-17-9563Zlvhvwaqmwa distribution width (RBC) [Ratio]13.2 %11.0-15.0[facility] TrumbullGlobulin Calc (S) [Mass/Vol]Ordered By: Isaías Jordan on 25-30-8814Wljrzjpc (S) [Mass/Vol]3.7 g/dLSelect Medical Specialty Hospital - TrumbullGlomerular filtration rate (GFR) estimation in non- AmericanOrdered By: Isaías Jordan on 73-55-3022ALG/1.73 sq M.predicted among non-blacks MDRD (S/P/Bld) [Vol rate/Area]mL/min/{1.73_m2}>=60 mL/min/1.73m 2FProMedica Toledo HospitalHematocrit Auto (Bld) [Volume fraction]Ordered By: Isaías Jordan on 99-66-4750Lotovfzshq (Bld) [Volume fraction]41.6 %36.0-48.0[facility] TrumbullHemoglobin [Mass/volume] in BloodOrdered By: Isaías Jordan on 39-60-2980Dwtercjfei (Bld) [Mass/Vol]13.9 g/dL12.0-16.0[facility] TrumbullLaboratory - Chemistry and Chemistry - challengeOrdered By: Isaías Jordan on 03-17-2025 Albumin [Mass/Vol]3.8 g/dL3.4-5.0[facility] TrumbullALP [Catalytic activity/Vol]81 U/W84-575GxikykmlnSelect Medical Specialty Hospital - TrumbullALT [Catalytic activity/Vol]24 U/E92-09ZowxnupjsSelect Medical Specialty Hospital - TrumbullAST [Catalytic activity/Vol]22 U/M05-53WcdbjstgcSelect Medical Specialty Hospital - TrumbullBilirubin [Mass/Vol]0.5 mg/dL0.2-1.0[facility] TrumbullCalcium [Mass/Vol]9.1 mg/dL 8.5-10.1FProMedica Toledo HospitalChloride [Moles/Vol]105 mmol/L98-107 [facility] TrumbullCO2 [Moles/Vol]27.3 mmol/L21.0-32.0[facility] TrumbullCreatinine [Mass/Vol]0.57 mg/dL0.55-1.02[facility] TrumbullGFR/1.73 sq M.predicted MDRD (S/P/Bld) [Vol rate/Area] mL/min/{1.73_m2}>=60 mL/min/1.73m 2FProMedica Toledo HospitalGlucose [Mass/Vol]100 mg/zG14-418UrxpaqoacSelect Medical Specialty Hospital - TrumbullPotassium [Moles/Vol] 3.9 mmol/L3.5-5.1FProMedica Toledo HospitalProtein [Mass/Vol]7.5 g/dL 6.4-8.2FSelect Medical Cleveland Clinic Rehabilitation Hospital, Beachwoododium [Moles/Vol]140 mmol/H357-693 [facility] TrumbullUrea nitrogen [Mass/Vol]13.0 mg/dL7.0-18.0 [facility] - TrumbullUrea nitrogen/Creatinine [Mass ratio]22.8 mg/mg [facility] TrumbullLaboratory - Hematology and Cell countsOrdered By: Isaías Jordan on 53-14-8501Sxmtohxp granulocytes/100 WBC (Bld)0.2 % 0.0-0.5FProMedica Toledo HospitalLeukocytes [#/volume] corrected for nucleated erythrocytes in Blood by Automated counOrdered By: Isaías Jordan on 84-88-0145IAC corrected for nucl RBC Auto (Bld) [#/Vol]4.9 10 3/uL4.0-11.0 [facility] - TrumbullLymphocytes Auto (Bld) [#/Vol]Ordered By: Isaías Jordan on 19-69-5276Zlybyjzhogy (Bld) [#/Vol]1.5 10 3/uL1.2-3.8 [facility] TrumbullLymphocytes/100 WBC Auto (Bld)Ordered By: Isaías Jordan on 74-15-4998Ufdcvhxbwvv/100 WBC (Bld)31.1 %20.5-60.0[facility] Auto (RBC) [Entitic mass]Ordered By: Isaías Jordan on 39-79-9201GXB (RBC) [Entitic mass]31.9 pg26.7-34.0[facility] TrumbullMCHC Auto (RBC) [Mass/Vol]Ordered By: Isaías Jordan on 04-00-9613FASF (RBC) [Mass/Vol]33.4 g/dL29.9-35.2FProMedica Toledo HospitalMCV Auto (RBC) [Entitic vol]Ordered By: Isaías Jordan on 12-01-5341SWH (RBC) [Entitic vol]95.4 fL81.0-99.0[facility] TrumbullMonocytes Auto (Bld) [#/Vol]Ordered By: Isaías Jordan on 50-35-4577Xqmqjtmbq (Bld) [#/Vol]0.5 10 3/uL0.3-0.8[facility] TrumbullMonocytes/100 WBC Auto (Bld)Ordered By: Isaías Jordan on 97-95-8182Azlttzxut/100 WBC (Bld)9.9 % 1.7-12.0[facility] TrumbullNeutrophils Auto (Bld) [#/Vol]Ordered By: Isaías Jordan on 14-11-8769Amabytuazlh (Bld) [#/Vol]2.7 10 3/uL1.4-6.5 [facility] TrumbullNeutrophils/100 WBC Auto (Bld)Ordered By: Isaías Jordan on 52-41-2436Nybgwwyukvw/100 WBC (Bld)56.1 %43.0-75.0[facility] TrumbullNo Panel InformationOrdered By: Isaías Jordan on 02-23-6583Xcpzcvofxyi # (Auto)0.1 10 3/uL0.0-0.7FProMedica Toledo HospitalImmature Granulocyte # (Auto)0.01 10 3/uL0.00-0.03[facility] - TrumbullPlatelet mean volume Auto (Bld) [Entitic vol]Ordered By: Isaías Jordan on 49-93-3380Dzywifko mean volume (Bld) [Entitic vol]10.4 fL9.5-13.5 [facility] TrumbullPlatelets Auto (Bld) [#/Vol]Ordered By: Isaías Jordan on 90-92-0027Juanntkmm (Bld) [#/Vol]206 10 3/hT764-557LpsgnudywSelect Medical Specialty Hospital - TrumbullRBC Auto (Bld) [#/Vol]Ordered By: Isaías Jordan on 13-11-2328LPT (Bld) [#/Vol]4.36 10 6/uL4.20-5.40[facility] Medical Centererum or plasma albumin/globulin mass ratioOrdered By: Isaías Jordan on 93-23-3451Mlrbial/Globulin [Mass ratio]1.0 {ratio}[facility] CenterSerum or plasma anion gap determinationOrdered By: Isaías Jordan on 67-50-3193Zflox gap [Moles/Vol]11.6 mmol/LFProMedica Toledo Hospital Pathology Request for Lab Corpon 87-89-2877Zisycmvnz Request for Lab CorpNormal [facility] Physician GroupComment on above:Order Comment: GI SPECIMENResult Comment: See report. Scanned copy available in EMR. PERFORMED BY: [place] [address] PATHOLOGIST FAA CERTIFIED POWERPLANT MECHANIC CECY RODRIGUEZ M.D.Performed By: #### PATH TO [facility] #### [place] [address] USABasophils Auto (Bld) [#/Vol]Ordered By: Sandro Chin on 22-10-2792Ywdsenfun (Bld) [#/Vol]0.0 10 3/uL0.0-0.1FProMedica Toledo HospitalBasophils/100 WBC Auto (Bld)Ordered By: Sandro Chin on 12-25-2024 Basophils/100 WBC (Bld)0.8 %0.2-2.0[facility] TrumbullCholesterol in LDL Calc [Mass/Vol]Ordered By: Sandro Chin on 48-29-9339Tyvgsnorvjy in LDL [Mass/Vol]157.0 mg/dLSelect Medical Specialty Hospital - TrumbullComment on above:<100 mg/dl CLUDPXB459-875 mg/dl NEAR OR ABOVE VLYYJKQ861-820 mg/dl BORDERLINE LKTT242-186 mg/dl HIGH>190 mg/dl VERY HIGHCholesterol in VLDL Calc [Mass/Vol] Ordered By: Sandro Chin on 05-01-4438Vwryzwxtivy in VLDL [Mass/Vol]14.0 mg/dL [facility] TrumbullEosinophils/100 WBC Auto (Bld)Ordered By: Sandro Chin on 25-55-9768Usgaqmsmhga/100 WBC (Bld)1.5 %0.9-7.0[facility] - TrumbullErythrocyte distribution width Auto (RBC) [Ratio]Ordered By: Sandro Chin on 73-19-3769Cqhafomhzxf distribution width (RBC) [Ratio]13.4 % 11.0-15.0[facility] TrumbullEstimated glomerular filtration rate (GFR) non- AmericanOrdered By: Sandro Chin on 80-21-0789SMG/1.73 sq M.predicted among non-blacks MDRD (S/P/Bld) [Vol rate/Area]mL/min/{1.73_m2}>=60 mL/min/1.73m 2FProMedica Toledo HospitalGlobulin Calc (S) [Mass/Vol] Ordered By: Sandro Chin on 57-69-7683Xjgsggxx (S) [Mass/Vol]3.5 g/dLSelect Medical Specialty Hospital - TrumbullGlucose mean value [Mass/volume] in Blood Estimated from glycated hemoglobinOrdered By: Sandro Chin on 62-81-6249Haycibj glucose Estimated from glycated hemoglobin (Bld) [Mass/Vol]111 mg/dLSelect Medical Specialty Hospital - TrumbullHematocrit Auto (Bld) [Volume fraction]Ordered By: Sandro Chin on 04-44-9342Iknuzyxkgg (Bld) [Volume fraction]41.8 %36.0-48.0[facility] TrumbullHemoglobin A1c percentageOrdered By: Sandro Chin on 12-25-2024 HbA1c (Bld) [Mass fraction]5.5 %4.5-6.2FProMedica Toledo HospitalComment on above:ADA RECOMMENDED LIMIT 4.0 - 6.0ADA THERAPEUTIC TARGET < 7.0ACTION SUGGESTED> 7.0Hemoglobin [Mass/volume] in BloodOrdered By: Sandro Chin on 81-53-2300Cgymkectdt (Bld) [Mass/Vol]13.9 g/dL12.0-16.0[facility] TrumbullLaboratory - Chemistry and Chemistry - challengeOrdered By: Sandro Chin on 62-89-1323Dwaspbv [Mass/Vol]4.0 g/dL3.4-5.0[facility] TrumbullALP [Catalytic activity/Vol]76 U/U19-412TovxgrijhSelect Medical Specialty Hospital - Trumbull ALT [Catalytic activity/Vol]24 U/L72-77NsyxhcnurSelect Medical Specialty Hospital - TrumbullAST [Catalytic activity/Vol]14 U/FMzc74-41GmzrotqkrSelect Medical Specialty Hospital - TrumbullBilirubin [Mass/Vol]0.6 mg/dL0.2-1.0[facility] TrumbullCalcium [Mass/Vol]9.6 mg/dL8.5-10.1FProMedica Toledo HospitalChloride [Moles/Vol]106 mmol/L 98-107[facility] TrumbullCholesterol [Mass/Vol]219 mg/dLHigh<=200 [facility] TrumbullCholesterol in HDL [Mass/Vol]48 mg/dL40-60 [facility] TrumbullComment on above:> or =60 mg/dl - LOW CARDIOVASCULAR RISK<40 mg/dl - HIGH CARDIOVASCULAR RISKCO2 [Moles/Vol]28.6 mmol/L21.0-32.0[facility] TrumbullCreatinine [Mass/Vol]0.67 mg/dL 0.55-1.02[facility] TrumbullGFR/1.73 sq M.predicted MDRD (S/P/Bld) [Vol rate/Area]mL/min/{1.73_m2}>=60 mL/min/1.73m 2FProMedica Toledo HospitalGlucose [Mass/Vol]88 mg/mJ21-188WlcqhmtzzSelect Medical Specialty Hospital - TrumbullPotassium [Moles/Vol]3.9 mmol/L3.5-5.1FProMedica Toledo HospitalProtein [Mass/Vol] 7.5 g/dL6.4-8.2FSelect Medical Cleveland Clinic Rehabilitation Hospital, Beachwoododium [Moles/Vol]144 mmol/L 136-145[facility] TrumbullTriglyceride [Mass/Vol]70 mg/dL<=150 [facility] TrumbullUrea nitrogen [Mass/Vol]19.0 mg/dLHigh7.0-18.0 [facility] - TrumbullUrea nitrogen/Creatinine [Mass ratio]28.4 mg/mg [facility] TrumbullLaboratory - Hematology and Cell countsOrdered By: Sandro Chin on 95-19-5195Yuspjtmf granulocytes/100 WBC (Bld)0.2 %0.0-0.5 [facility] TrumbullLeukocytes [#/volume] corrected for nucleated erythrocytes in Blood by Automated counOrdered By: Sandro Chin on 84-71-7638RZL corrected for nucl RBC Auto (Bld) [#/Vol]4.8 10 3/uL4.0-11.0[facility] TrumbullLymphocytes Auto (Bld) [#/Vol]Ordered By: Sandro Chin on 82-89-9097Sdzjnxdhhmt (Bld) [#/Vol]1.7 10 3/uL1.2-3.8[facility] TrumbullLymphocytes/100 WBC Auto (Bld)Ordered By: Sandro Chin on 12-25-2024 Lymphocytes/100 WBC (Bld)36.1 %20.5-60.0[facility] Auto (RBC) [Entitic mass]Ordered By: Sandro Chin on 58-39-6798KNJ (RBC) [Entitic mass]31.8 pg26.7-34.0[facility] HospitalHC Auto (RBC) [Mass/Vol]Ordered By: Sandro Chin on 33-09-6529EVEP (RBC) [Mass/Vol]33.3 g/dL 29.9-35.2FProMedica Toledo HospitalMCV Auto (RBC) [Entitic vol]Ordered By: Sandro Chin on 90-80-4343ZOG (RBC) [Entitic vol]95.7 fL81.0-99.0[facility] TrumbullMonocytes Auto (Bld) [#/Vol]Ordered By: Sandro Chin on 18-02-3587Jlrgyazjw (Bld) [#/Vol]0.3 10 3/uL0.3-0.8[facility] TrumbullMonocytes/100 WBC Auto (Bld)Ordered By: Sandro Chin on 12-25-2024 Monocytes/100 WBC (Bld)6.8 %1.7-12.0[facility] - TrumbullNeutrophils Auto (Bld) [#/Vol]Ordered By: Sandro Chin on 63-23-0113Tkvtclzhpip (Bld) [#/Vol]2.6 10 3/uL1.4-6.5FProMedica Toledo HospitalNeutrophils/100 WBC Auto (Bld)Ordered By: Sandro Chin on 58-34-0449Raiwieloaka/100 WBC (Bld)54.6 % 43.0-75.0[facility] TrumbullNo Panel InformationOrdered By: Sandro Chin on 07-38-4257Ybcloydwsyy # (Auto)0.1 10 3/uL0.0-0.7FProMedica Toledo HospitalImmature Granulocyte # (Auto)0.01 10 3/uL0.00-0.03[facility] - TrumbullPlatelet mean volume Auto (Bld) [Entitic vol]Ordered By: Sandro Chin on 97-54-8751Owodloxa mean volume (Bld) [Entitic vol]10.9 fL 9.5-13.5FProMedica Toledo HospitalPlatelets Auto (Bld) [#/Vol]Ordered By: Sandro Chin on 36-50-9164Qhsztbvnx (Bld) [#/Vol]210 10 3/mN344-758TmtjmuzaoSelect Medical Specialty Hospital - TrumbullRBC Auto (Bld) [#/Vol]Ordered By: Sandro Chin on 13-98-6529RAR (Bld) [#/Vol]4.37 10 6/uL4.20-5.40[facility] Medical Centererum or plasma albumin/globulin mass ratioOrdered By: Sandro Chin on 76-85-0204Hidvyex/Globulin [Mass ratio]1.1 {ratio}[facility] Medical Centererum or plasma anion gap determinationOrdered By: Sandro Chin on 58-28-7595Kjtcs gap [Moles/Vol]13.3 mmol/LFSelect Medical Cleveland Clinic Rehabilitation Hospital, Beachwooderum or plasma total cholesterol/high density lipoprotein (HDL) cholesterol mass rat Ordered By: Sandro Chin on 89-97-9419Wzybjjxpydx.total/Cholesterol in HDL [Mass ratio]4.6 {ratio}[facility] - TrumbullComment on above:3.3 - 4.4 LOW RISK4.4 - 7.1 AVERAGE RISK7.1 - 11.0 MODERATE RISK>11.0 HIGH RISKChlamydia trachomatis rRNA [Presence] in Cervix by MARIVEL with probe detectionOrdered By: Sandro Chin on 12-20-2024. trachomatis rRNA MARIVEL+probe Ql (Cvx)NegativeNegative [facility] TrumbullNeisseria gonorrhoeae rRNA [Presence] in Cervix by MARIVEL with probe detectionOrdered By: Sandro Chin on 12-20-2024N. gonorrhoeae rRNA MARIVEL+probe Ql (Cvx)NegativeNegativeSelect Medical Specialty Hospital - TrumbullComment on above:Performed at: [address], [place], [place] [id number] Director: Che Swenson MD, Phone: [phone] at: =G - [facility] [address] [place], [place] [id number] Director: Ceh Swenson MD, Phone: [phone] Panel InformationOrdered By: Sandro Chin on 85-08-8630YF Pap w/Ct-Ng & HPV (Off-Site)Note.[facility] Comment on above:TESTS RESULT FLAG UNITS REF RANGE LAB Clinician Provided Cytology Information No. of containers..01 ThinPrep VialDIAGNOSIS: 01 NEGATIVE FORINTRAEPITHELIAL LESION OR MALIGNANCY. CELLULAR CHANGES ASSOCIATED WITH ATROPHY AND INFLAMMATION AREPRESENT.Specimen adequacy: 01 Satisfactory for evaluation. Endocervical component may not be distinguished in cases of atrophy.Performed by: Kenton Hines, Under Presser (ASCP). 01Note: Note 01 The Pap smear is a screening test designed to aid in the detection of premalignant and malignant conditions of the uterine cervix. It is not a diagnostic procedure and should not be used as the sole means of detecting cervical cancer. Both false-positive and false-negative reports do occur.Test Methodology: Note 01 The Motion Math(R) Bonderite Operator was unable to read this specimen. Therefore a manual review was performed.. 01 The HPV DNA reflex criteria were not met with this specimen result therefore, no HPV testing was performed. FLAG LEGEND: L-Low Normal,H-High Normal,LL-Alert Low,HH-Alert High <-Panic Low,>- Panic High,A-Abnormal,AA-Critical Abnormal Performed at:[address] [address] Che Swenson MD, pap IG, CtNg, rfx HPV Aptimaon 08-07-9673FPL Chlamydia NAANegativeNormalNegativeThe [facility] Hospital Physician GroupComment on above:Performed By: #### PAP #### [facility] ,PAP GonococcusNegativeNormalNegativeThe [facility] Physician GroupComment on above:Result Comment: Performed at: - [facility] [id number] Special Duty Nurse: Che Swenson MD, Phone: [phone] Performed at: =G - [facility] [id number] Special Duty Nurse: Che Swenson MD, Phone: [phone] PERFORMED BY: [place] [address] [place] [address] PATHOLOGIST FAA CERTIFIED POWERPLANT MECHANIC CECY RODRIGUEZ M.D.Performed By: #### PAP #### [facility] ,Pap IGNoteNormal.[facility] Physician GroupComment on above:Result Comment: TESTS RESULT FLAG UNITS REF RANGE LAB Clinician Provided Cytology Information No. of containers..01 ThinPrep Vial DIAGNOSIS: 01 NEGATIVE FOR INTRAEPITHELIAL LESION OR MALIGNANCY. CELLULAR CHANGES ASSOCIATED WITH ATROPHY AND INFLAMMATION ARE PRESENT. Specimen adequacy: 01 Satisfactory for evaluation. Endocervical component may not be distinguished in cases of atrophy. Performed by: 01 Nella Hines, Under Presser ([facility]) . 01 Note: Note 01 The Pap smear is a screening test designed to aid in the detection of premalignant and malignant conditions of the uterine cervix. It is not a diagnostic procedure and should not be used as the sole means of detecting cervical cancer. Both false-positive and false-negative reports do occur. Test Methodology: Note 01 The Motion Math(R) Bonderite Operator was unable to read this specimen. Therefore a manual review was performed. . 01 The HPV DNA reflex criteria were not met with this specimen result therefore, no HPV testing was performed. FLAG LEGEND: L-Low Normal,H-High Normal,LL-Alert Low,HH-Alert High <-Panic Low,>-Panic High,A-Abnormal,AA-Critical Abnormal Performed at: [address] [address] Che Swenson MD, Lfvftoqyb By: #### PAP [id number] #### [facility] ,Basophils Auto (Bld) [#/Vol]on 38-91-5828Itlrdwnve (Bld) [#/Vol]Automated basophil count0.0-0.1FProMedica Toledo HospitalBasophils/100 WBC Auto (Bld)on 07-87-4115Nsocrmkfd/100 WBC (Bld)Automated basophil %0.2-2.0[facility] TrumbullEosinophils/100 WBC Auto (Bld)on 08-24-2024 Eosinophils/100 WBC (Bld)Automated eosinophil %0.9-7.0[facility] - TrumbullErythrocyte distribution width Auto (RBC) [Ratio]on 18-48-1488Lxeirbyhjip distribution width (RBC) [Ratio]Erythrocyte distribution width [Ratio] by Automated count11.0-15.0[facility] TrumbullEstimated glomerular filtration rate (GFR) non- Americanon 88-10-1800QJD/1.73 sq M.predicted among non-blacks MDRD (S/P/Bld) [Vol rate/Area]Estimated glomerular filtration rate (GFR) non->=60 mL/min/1.73m 2FProMedica Toledo HospitalGlobulin Calc (S) [Mass/Vol]on 46-08-2534Pxxcpbto (S) [Mass/Vol]Serum globulin measurement by calculation (mass/volume)[facility] TrumbullHematocrit Auto (Bld) [Volume fraction]on 61-06-0705Wvivjovyvt (Bld) [Volume fraction]Hematocrit [Volume Fraction] of Blood by Automated count 36.0-48.0[facility] - TrumbullHemoglobin [Mass/volume] in Bloodon 17-65-9205Ztlqwfnqro (Bld) [Mass/Vol]Hemoglobin [Mass/volume] in Blood12.0-16.0 [facility] TrumbullLaboratory - Chemistry and Chemistry - challengeon 99-57-3991Yoyjosw [Mass/Vol]3.9 g/dL3.4-5.0[facility] TrumbullALP [Catalytic activity/Vol]75 U/V06-974SiytaccczSelect Medical Specialty Hospital - TrumbullALT [Catalytic activity/Vol]20 U/Y85-33YkztzdsvcSelect Medical Specialty Hospital - Trumbull AST [Catalytic activity/Vol]20 U/V85-66YsnfpuxrfSelect Medical Specialty Hospital - Trumbull Bilirubin [Mass/Vol]0.6 mg/dL0.2-1.0[facility] TrumbullCalcium [Mass/Vol]9.3 mg/dL8.5-10.1FProMedica Toledo HospitalChloride [Moles/Vol] 103 mmol/A89-052HifoyjztkSelect Medical Specialty Hospital - TrumbullCO2 [Moles/Vol]27.7 mmol/L 21.0-32.0[facility] TrumbullCreatinine [Mass/Vol]0.69 mg/dL 0.55-1.02[facility] TrumbullGFR/1.73 sq M.predicted MDRD (S/P/Bld) [Vol rate/Area]mL/min/{1.73_m2}>=60 mL/min/1.73m 2FProMedica Toledo HospitalGlucose [Mass/Vol]106 mg/zG49-107LubpatelaSelect Medical Specialty Hospital - Trumbull Potassium [Moles/Vol]4.2 mmol/L3.5-5.1FProMedica Toledo HospitalProtein [Mass/Vol]7.4 g/dL6.4-8.2FSelect Medical Cleveland Clinic Rehabilitation Hospital, Beachwoododium [Moles/Vol]135 mmol/XGwo598-880WanoriysuSelect Medical Specialty Hospital - TrumbullUrea nitrogen [Mass/Vol]11.0 mg/dL7.0-18.0[facility] - TrumbullUrea nitrogen/Creatinine [Mass ratio]15.9 mg/mgSelect Medical Specialty Hospital - TrumbullLaboratory - Hematology and Cell countson 88-26-7772Ymsyqypd granulocytes/100 WBC (Bld)0.2 %0.0-0.5FProMedica Toledo HospitalLeukocytes [#/volume] corrected for nucleated erythrocytes in Blood by Automated counon 84-52-6343NDG corrected for nucl RBC Auto (Bld) [#/Vol]Leukocytes [#/volume] corrected for nucleated erythrocytes in Blood by Automated coun4.0-11.0[facility] - TrumbullLymphocytes Auto (Bld) [#/Vol]on 95-78-8044Dwedvxqtkle (Bld) [#/Vol]Lymphocytes [#/volume] in Blood by Automated count1.2-3.8[facility] - TrumbullLymphocytes/100 WBC Auto (Bld)on 25-22-4041Gntuvkxzcib/100 WBC (Bld)Lymphocytes/100 leukocytes in Blood by Automated count20.5-60.0[facility] HospitalH Auto (RBC) [Entitic mass]on 96-10-3733HRX (RBC) [Entitic mass]MCH [Entitic mass] by Automated count26.7-34.0[facility] - TrumbullMCHC Auto (RBC) [Mass/Vol]on 88-29-4259SUOV (RBC) [Mass/Vol]MCHC [Mass/volume] by Automated count29.9-35.2FProMedica Toledo HospitalMCV Auto (RBC) [Entitic vol]on 34-85-6068IQS (RBC) [Entitic vol]MCV [Entitic volume] by Automated count 81.0-99.0[facility] - TrumbullMonocytes Auto (Bld) [#/Vol]on 26-93-1886Fsoehlyrc (Bld) [#/Vol]Automated blood monocyte count0.3-0.8[facility] TrumbullMonocytes/100 WBC Auto (Bld)on 87-96-8428Qhapzetsl/100 WBC (Bld)Automated monocyte %1.7-12.0[facility] Neutrophils Auto (Bld) [#/Vol]on 53-22-3044Gsglzlmkmpj (Bld) [#/Vol]Neutrophils [#/volume] in Blood by Automated count1.4-6.5FProMedica Toledo Hospital Neutrophils/100 WBC Auto (Bld)on 07-05-0025Shllprnwshq/100 WBC (Bld)Automated neutrophil %43.0-75.0[facility] TrumbullNo Panel Informationon 52-16-9867Vfdgqtehgoz # (Auto)0.1 10 3/uL0.0-0.7FProMedica Toledo HospitalImmature Granulocyte # (Auto)0.01 10 3/uL0.00-0.03[facility] - TrumbullPlatelet mean volume Auto (Bld) [Entitic vol]on 63-40-8517Vvdpmgls mean volume (Bld) [Entitic vol]Platelet mean volume [Entitic volume] in Blood by Automated count9.5-13.5FProMedica Toledo HospitalPlatelets Auto (Bld) [#/Vol]on 82-72-2143Qoxaebeze (Bld) [#/Vol]Platelets [#/volume] in Blood by Automated -596ZnkqwdxdnSelect Medical Specialty Hospital - TrumbullRBC Auto (Bld) [#/Vol]on 11-25-0402UEA (Bld) [#/Vol]Erythrocytes [#/volume] in Blood by Automated count 4.20-5.40[facility] Centererum or plasma albumin/globulin mass ratioon 44-63-6248Yvxlzet/Globulin [Mass ratio]Serum or plasma albumin/globulin mass ratioUniversity Hospitals St. John Medical Centererum or plasma anion gap determinationon 91-36-8081Wteds gap [Moles/Vol]Serum or plasma anion gap determination[facility] TrumbullBasophils Auto (Bld) [#/Vol]on 92-75-0235Tzmauvfcf (Bld) [#/Vol]0.1 10 3/uL0.0-0.1FProMedica Toledo HospitalBasophils/100 WBC Auto (Bld)on 11-90-6324Tbmfpuhcv/100 WBC (Bld)1.0 % 0.2-2.0[facility]ullEosinophils/100 WBC Auto (Bld)on 32-69-0065Uwichenzddx/100 WBC (Bld)1.8 %0.9-7.0[facility] Erythrocyte distribution width Auto (RBC) [Ratio]on 36-08-1099Kssjlqzowez distribution width (RBC) [Ratio]13.1 %11.0-15.0[facility] Estimated glomerular filtration rate (GFR) non- Americanon 01-15-2024 GFR/1.73 sq M.predicted among non-blacks MDRD (S/P/Bld) [Vol rate/Area] mL/min/{1.73_m2}>=60[facility] TrumbullGlobulin Calc (S) [Mass/Vol]on 60-29-0068Whquessu (S) [Mass/Vol]3.6 g/dLSelect Medical Specialty Hospital - TrumbullHematocrit Auto (Bld) [Volume fraction]on 81-48-6547Luzcfifrsd (Bld) [Volume fraction]42.6 %36.0-48.0[facility]ullHemoglobin [Mass/volume] in Bloodon 36-36-6439Wmuqaaqtew (Bld) [Mass/Vol]13.7 g/dL12.0-16.0 [facility]ullLaboratory - Chemistry and Chemistry - challengeon 90-75-3361Krumulw [Mass/Vol]4.0 g/dL3.4-5.0[facility]ullALP [Catalytic activity/Vol]90 U/V76-290FnexxlmkeSelect Medical Specialty Hospital - TrumbullALT [Catalytic activity/Vol]22 U/J76-68YhpdqajxtSelect Medical [facility] AST [Catalytic activity/Vol]21 U/Y94-44FvhzjhxnmSelect [facility] Bilirubin [Mass/Vol]0.6 mg/dL0.2-1.0[facility]ullCalcium [Mass/Vol]9.6 mg/dL8.5-10.1FProMedica Toledo HospitalChloride [Moles/Vol] 102 mmol/Q37-156KaatvxrvoSelect Medical Specialty Hospital - TrumbullCO2 [Moles/Vol]26.2 mmol/L 21.0-32.0[facility]ullCreatinine [Mass/Vol]0.60 mg/dL 0.55-1.02[facility]umbullGFR/1.73 sq M.predicted MDRD (S/P/Bld) [Vol rate/Area]mL/min/{1.73_m2}>=60[facility]ullGlucose [Mass/Vol]107 mg/sSZtpk63-670NpuefweybSelect Medical Specialty Hospital - TrumbullPotassium [Moles/Vol]4.2 mmol/L3.5-5.1FProMedica Toledo HospitalProtein [Mass/Vol] 7.6 g/dL6.4-8.2FSelect Medical Cleveland Clinic Rehabilitation Hospital, Beachwoododium [Moles/Vol]136 mmol/L 136-145[facility] TrumbullUrea nitrogen [Mass/Vol]13.0 mg/dL 7.0-18.0[facility] TrumbullUrea nitrogen/Creatinine [Mass ratio] 21.7 mg/mgSelect Medical Specialty Hospital - TrumbullLaboratory - Hematology and Cell countson 62-74-4602Uealosjj granulocytes/100 WBC (Bld)0.2 %0.0-0.5FProMedica Toledo HospitalLeukocytes [#/volume] corrected for nucleated erythrocytes in Blood by Automated counon 09-85-9737DFC corrected for nucl RBC Auto (Bld) [#/Vol]5.0 10 3/uL4.0-11.0[facility] Lymphocytes Auto (Bld) [#/Vol]on 92-22-9242Tvogvxcluya (Bld) [#/Vol]2.0 10 3/uL 1.2-3.8[facility] TrumbullLymphocytes/100 WBC Auto (Bld)on 53-47-4332Bhmjozcdghv/100 WBC (Bld)39.4 %20.5-60.0[facility] TrumbullMCH Auto (RBC) [Entitic mass]on 62-12-5093RLM (RBC) [Entitic mass]32.2 pg 26.7-34.0[facility]umbullMCHC Auto (RBC) [Mass/Vol]on 89-26-8281NGHB (RBC) [Mass/Vol]32.2 g/dL29.9-35.2FProMedica Toledo HospitalMCV Auto (RBC) [Entitic vol]on 39-20-2170RRK (RBC) [Entitic vol]100.0 fL High81.0-99.0[facility] TrumbullMonocytes Auto (Bld) [#/Vol]on 06-59-4643Lrwibyfzl (Bld) [#/Vol]0.5 10 3/uL0.3-0.8[facility]ullMonocytes/100 WBC Auto (Bld)on 42-77-8975Eevjafnqx/100 WBC (Bld)9.1 % 1.7-12.0[facility] TrumbullNeutrophils Auto (Bld) [#/Vol]on 06-38-2030Zrljifyqqkw (Bld) [#/Vol]2.4 10 3/uL1.4-6.5FProMedica Toledo HospitalNeutrophils/100 WBC Auto (Bld)on 73-15-8372Mhousqiglsw/100 WBC (Bld)48.5 % 43.0-75.0[facility]ullNo Panel Informationon 01-15-2024 Eosinophils # (Auto)0.1 10 3/uL0.0-0.7FProMedica Toledo HospitalImmature Granulocyte # (Auto)0.01 10 3/uL0.00-0.03[facility] Platelet mean volume Auto (Bld) [Entitic vol]on 00-21-3189Zknthxzs mean volume (Bld) [Entitic vol]10.9 fL9.5-13.5FProMedica Toledo HospitalPlatelets Auto (Bld) [#/Vol]on 99-50-2014Qyikfqlxx (Bld) [#/Vol]197 10 3/aQ096-535 [facility]ullRBC Auto (Bld) [#/Vol]on 56-25-3448SAO (Bld) [#/Vol]4.26 10 6/uL4.20-5.40[facility] Centererum or plasma albumin/globulin mass ratioon 34-29-0873Tbtxtot/Globulin [Mass ratio]1.1 {ratio} [facility] Centererum or plasma anion gap determinationon 96-14-9872Dphcx gap [Moles/Vol]12.0 mmol/LFProMedica Toledo Hospital Basophils Auto (Bld) [#/Vol]on 16-35-9671Fbgauhvzu (Bld) [#/Vol]0.0 10 3/uL 0.0-0.1FProMedica Toledo HospitalBasophils/100 WBC Auto (Bld)on 18-28-5637Xcivwhaya/100 WBC (Bld)0.9 %0.2-2.0[facility] Cholesterol in LDL Calc [Mass/Vol]on 59-21-6707Ydultsutdyx in LDL [Mass/Vol] 179.0 mg/dLSelect Medical Specialty Hospital - TrumbullComment on above:<100 mg/dl TAVDUYE147-859 mg/dl NEAR OR ABOVE XPUMIWY452-739 mg/dl BORDERLINE GNHF384-388 mg/dl HIGH>190 mg/dl VERY HIGHCholesterol in VLDL Calc [Mass/Vol]on 11-26-2023 Cholesterol in VLDL [Mass/Vol]28.0 mg/dLSelect Medical Specialty Hospital - [facility] Eosinophils/100 WBC Auto (Bld)on 39-22-9436Whkdzhtnaum/100 WBC (Bld)2.4 %0.9-7.0 [facility] TrumbullErythrocyte distribution width Auto (RBC) [Ratio]on 94-91-6711Mxcbxlqyauv distribution width (RBC) [Ratio]13.2 %11.0-15.0 [facility]umbullEstimated glomerular filtration rate (GFR) non- Americanon 24-24-1969GRO/1.73 sq M.predicted among non-blacks MDRD (S/P/Bld) [Vol rate/Area]mL/min/{1.73_m2}>=60[facility] Globulin Calc (S) [Mass/Vol]on 81-32-6070Komblivs (S) [Mass/Vol]3.5 g/dL [facility] TrumbullGlucose mean value [Mass/volume] in Blood Estimated from glycated hemoglobinon 34-72-1288Dmlfexl glucose Estimated from glycated hemoglobin (Bld) [Mass/Vol]94 mg/dLSelect Medical Specialty Hospital - [facility]umbull Hematocrit Auto (Bld) [Volume fraction]on 56-32-5553Eqhmwuruhy (Bld) [Volume fraction]41.5 %36.0-48.0[facility]ullHemoglobin [Mass/volume] in Bloodon 88-53-6103Istvsjzvcy (Bld) [Mass/Vol]13.4 g/dL12.0-16.0 [facility]ullLaboratory - Chemistry and Chemistry - challengeon 38-68-0461Epwuieh [Mass/Vol]3.9 g/dL3.4-5.0[facility]ullALP [Catalytic activity/Vol]101 U/G58-141CtjjbmzhcSelect Medical Specialty Hospital - TrumbullALT [Catalytic activity/Vol]29 U/U67-82HizmvdarkSelect Medical Specialty Hospital - TrumbullAST [Catalytic activity/Vol]19 U/J91-55MbrtgcpaySelect Medical Specialty Hospital [facility] Bilirubin [Mass/Vol]0.5 mg/dL0.2-1.0[facility]ullCalcium [Mass/Vol]9.5 mg/dL8.5-10.1FProMedica Toledo HospitalChloride [Moles/Vol] 105 mmol/H67-584JilhsmucsSelect Medical Specialty Hospital - TrumbullCholesterol [Mass/Vol]250 mg/dL High<=200[facility]ullCholesterol in HDL [Mass/Vol]43 mg/dL 40-60[facility] TrumbullComment on above:> or =60 mg/dl - LOW CARDIOVASCULAR RISK<40 mg/dl - HIGH CARDIOVASCULAR RISKCO2 [Moles/Vol]28.5 mmol/L21.0-32.0[facility]ullCreatinine [Mass/Vol]0.57 mg/dL 0.55-1.02[facility]ullGFR/1.73 sq M.predicted MDRD (S/P/Bld) [Vol rate/Area]mL/min/{1.73_m2}>=60[facility]umbullGlucose [Mass/Vol]100 mg/iR96-441TgalqtjusSelect Medical Specialty Hospital - TrumbullPotassium [Moles/Vol] 4.0 mmol/L3.5-5.1FProMedica Toledo HospitalProtein [Mass/Vol]7.4 g/dL 6.4-8.2FSelect Medical Cleveland Clinic Rehabilitation Hospital, Beachwoododium [Moles/Vol]142 mmol/L702-622 [facility] TrumbullTriglyceride [Mass/Vol]140 mg/dL<=150[facility]umbullTSH Qn1.818 m[IU]/L0.358-3.740[facility] TrumbullUrea nitrogen [Mass/Vol]16.0 mg/dL7.0-18.0[facility] TrumbullUrea nitrogen/Creatinine [Mass ratio]28.1 mg/mgSelect Medical Specialty Hospital - TrumbullLaboratory - Hematology and Cell countson 46-86-4821WaW9w (Bld) [Mass fraction]4.9 %4.5-6.2FProMedica Toledo HospitalComment on above:ADA RECOMMENDED LIMIT 4.0 - 6.0ADA THERAPEUTIC TARGET < 7.0ACTION SUGGESTED> 7.0 Immature granulocytes/100 WBC (Bld)0.2 %0.0-0.5FProMedica Toledo Hospital Leukocytes [#/volume] corrected for nucleated erythrocytes in Blood by Automated counon 51-07-0377CVN corrected for nucl RBC Auto (Bld) [#/Vol]4.6 10 3/uL 4.0-11.0[facility] TrumbullLymphocytes Auto (Bld) [#/Vol]on 93-28-0067Xjurmabqbqs (Bld) [#/Vol]2.1 10 3/uL1.2-3.8[facility] TrumbullLymphocytes/100 WBC Auto (Bld)on 29-66-6625Yccfihtvnuk/100 WBC (Bld)44.7 % 20.5-60.0[facility] HospitalH Auto (RBC) [Entitic mass]on 56-62-5476IRS (RBC) [Entitic mass]31.5 pg26.7-34.0[facility] TrumbullMCHC Auto (RBC) [Mass/Vol]on 95-61-1235YTJV (RBC) [Mass/Vol]32.3 g/dL 29.9-35.2FProMedica Toledo HospitalMCV Auto (RBC) [Entitic vol]on 68-04-7807YGA (RBC) [Entitic vol]97.4 fL81.0-99.0[facility]umbullMonocytes Auto (Bld) [#/Vol]on 35-64-7410Gfilrgrtv (Bld) [#/Vol]0.4 10 3/uL0.3-0.8[facility]ullMonocytes/100 WBC Auto (Bld)on 23-46-7208Hfietpryc/100 WBC (Bld)8.5 %1.7-12.0[facility] Neutrophils Auto (Bld) [#/Vol]on 18-44-8939Zrndmsztyoo (Bld) [#/Vol]2.0 10 3/uL 1.4-6.5FProMedica Toledo HospitalNeutrophils/100 WBC Auto (Bld)on 64-29-5436Enqlzxjhycc/100 WBC (Bld)43.3 %43.0-75.0[facility]ullNo Panel Informationon 84-85-4605Akrlcgdzeaf # (Auto)0.1 10 3/uL0.0-0.7 [facility] TrumbullImmature Granulocyte # (Auto)0.01 10 3/uL 0.00-0.03[facility]ullPlatelet mean volume Auto (Bld) [Entitic vol]on 33-32-0549Ungybfas mean volume (Bld) [Entitic vol]11.4 fL 9.5-13.5FProMedica Toledo HospitalPlatelets Auto (Bld) [#/Vol]on 86-01-9741Lvhxnsdyw (Bld) [#/Vol]210 10 3/pR771-291BwbjjbgcgSelect Medical Specialty Hospital - TrumbullRBC Auto (Bld) [#/Vol]on 94-38-9054IQW (Bld) [#/Vol]4.26 10 6/uL4.20-5.[address] [facility] Centererum or plasma albumin/globulin mass ratioon 95-52-2851Foackfh/Globulin [Mass ratio]1.1 {ratio}[facility] Centererum or plasma anion gap determinationon 18-28-1393Vbpza gap [Moles/Vol] 12.5 mmol/LFSelect Medical Cleveland Clinic Rehabilitation Hospital, Beachwooderum or plasma total cholesterol/high density lipoprotein (HDL) cholesterol mass johan 11-26-2023 Cholesterol.total/Cholesterol in HDL [Mass ratio]5.8 {ratio}[facility] TrumbullComment on above:3.3 - 4.4 LOW RISK4.4 - 7.1 AVERAGE RISK7.1 - 11.0 MODERATE RISK>11.0 HIGH RISKBasophils Auto (Bld) [#/Vol]on 09-18-2023 Basophils (Bld) [#/Vol]0.1 10 3/uL0.0-0.1FProMedica Toledo Hospital Basophils/100 WBC Auto (Bld)on 72-97-5334Rredrtvyb/100 WBC (Bld)1.1 %0.2-2.0 [facility]umbullEosinophils/100 WBC Auto (Bld)on 09-18-2023 Eosinophils/100 WBC (Bld)2.2 %0.9-7.0[facility] Erythrocyte distribution width Auto (RBC) [Ratio]on 66-45-9964Mmsseyghsem distribution width (RBC) [Ratio]12.2 %11.0-15.0[facility] Estimated glomerular filtration rate (GFR) non- Americanon 09-18-2023 GFR/1.73 sq M.predicted among non-blacks MDRD (S/P/Bld) [Vol rate/Area] mL/min/{1.73_m2}>=60[facility] TrumbullGlobulin Calc (S) [Mass/Vol]on 17-93-2771Zeiwqfur (S) [Mass/Vol]3.3 g/dLSelect Medical Specialty Hospital - TrumbullHematocrit Auto (Bld) [Volume fraction]on 72-54-9531Ggfphdjrth (Bld) [Volume fraction]42.5 %36.0-48.0[facility]ullHemoglobin [Mass/volume] in Bloodon 54-47-9248Fodbqgckru (Bld) [Mass/Vol]13.5 g/dL12.0-16.0 [facility]ullLaboratory - Chemistry and Chemistry - challengeon 18-47-4669Wbckidi [Mass/Vol]3.8 g/dL3.4-5.0[facility]ullALP [Catalytic activity/Vol]89 U/B79-035IjoxgsovvSelect Medical Specialty Hospital - TrumbullALT [Catalytic activity/Vol]26 U/A03-07JdzweoyxrSelect Medical Specialty Hospital - [facility]ull AST [Catalytic activity/Vol]19 U/C13-96NygqvjhjjSelect Medical Specialty [facility] Bilirubin [Mass/Vol]0.4 mg/dL0.2-1.0[facility]ullCalcium [Mass/Vol]8.9 mg/dL8.5-10.1FProMedica Toledo HospitalChloride [Moles/Vol] 105 mmol/P16-187ZiuhkpqwhSelect Medical Specialty Hospital - TrumbullCO2 [Moles/Vol]29.0 mmol/L 21.0-32.0[facility] TrumbullCreatinine [Mass/Vol]0.71 mg/dL 0.55-1.02[facility]ullGFR/1.73 sq M.predicted MDRD (S/P/Bld) [Vol rate/Area]mL/min/{1.73_m2}>=60[facility]umbullGlucose [Mass/Vol]84 mg/hH09-748RsulkrxwtSelect Medical Specialty Hospital - TrumbullPotassium [Moles/Vol] 4.2 mmol/L3.5-5.1FProMedica Toledo HospitalProtein [Mass/Vol]7.1 g/dL 6.4-8.2FSelect Medical Cleveland Clinic Rehabilitation Hospital, Beachwoododium [Moles/Vol]142 mmol/N024-527 [facility] TrumbullUrea nitrogen [Mass/Vol]13.0 mg/dL7.0-18.0 [facility]umbullUrea nitrogen/Creatinine [Mass ratio]18.3 mg/mg [facility]ullLaboratory - Hematology and Cell countson 78-54-1103Smrcjqmx granulocytes/100 WBC (Bld)0.2 %0.0-0.5FProMedica Toledo HospitalLeukocytes [#/volume] corrected for nucleated erythrocytes in Blood by Automated counon 56-59-4103ANB corrected for nucl RBC Auto (Bld) [#/Vol]4.6 10 3/uL4.0-11.0[facility] TrumbullLymphocytes Auto (Bld) [#/Vol]on 29-31-1432Bkmlbpvhgyl (Bld) [#/Vol]2.6 10 3/uL1.2-3.8[facility] Tr[facility]ullLymphocytes/100 WBC Auto (Bld)on 09-18-2023 Lymphocytes/100 WBC (Bld)56.8 %20.5-60.0[facility] HospitalH Auto (RBC) [Entitic mass]on 50-72-5137QYW (RBC) [Entitic mass]31.5 pg26.7-34.0 [facility] TrumbullMCHC Auto (RBC) [Mass/Vol]on 33-57-6627DICW (RBC) [Mass/Vol]31.8 g/dL29.9-35.2FThe Bellevue HospitalV Auto (RBC) [Entitic vol]on 96-45-3464FRO (RBC) [Entitic vol]99.1 fL81.0-99.0[facility]ullMonocytes Auto (Bld) [#/Vol]on 95-77-5315Ylryfxtln (Bld) [#/Vol]0.4 10 3/uL0.3-0.8[facility]ullMonocytes/100 WBC Auto (Bld)on 28-47-2279Nkbybbugk/100 WBC (Bld)8.2 %1.7-12.0[facility] TrumbullNeutrophils Auto (Bld) [#/Vol]on 05-10-0049Aazwvctxitd (Bld) [#/Vol]1.5 10 3/uL1.4-6.5FProMedica Toledo HospitalNeutrophils/100 WBC Auto (Bld)on 15-82-2780Mhgqivyeefb/100 WBC (Bld)31.5 %43.0-75.0[facility]ullNo Panel Informationon 56-11-4950Inmfldcjmxn # (Auto)0.1 10 3/uL0.0-0.7FProMedica Toledo HospitalImmature Granulocyte # (Auto)0.01 10 3/uL0.00-0.03[facility]ullPlatelet mean volume Auto (Bld) [Entitic vol]on 67-23-1926Waqqomyi mean volume (Bld) [Entitic vol]11.1 fL 9.5-13.5FProMedica Toledo HospitalPlatelets Auto (Bld) [#/Vol]on 39-63-3032Gggcrjcev (Bld) [#/Vol]196 10 3/fX616-480LhitrvdfeSelect Medical Specialty Hospital - TrumbullRBC Auto (Bld) [#/Vol]on 72-11-5662VJD (Bld) [#/Vol]4.29 10 6/uL4.20-5.[address] [facility] Centererum or plasma albumin/globulin mass ratioon 08-70-1917Kmbmfeh/Globulin [Mass ratio]1.2 {ratio}[facility] Centererum or plasma anion gap determinationon 07-88-3223Igrkz gap [Moles/Vol] 12.2 mmol/LFProMedica Toledo HospitalAlanine aminotransferase [Enzymatic activity/volume] in Serum or PlasmaOrdered By: Isaías Jordan on 03-20-2023 ALT [Catalytic activity/Vol]16 U/L7[facility]umbullALT [Catalytic activity/Vol]Alanine aminotransferase [Enzymatic activity/volume] in Serum or PlasmaSelect Medical Specialty Hospital - TrumbullAlbumin [Mass/volume] in Serum or Plasma by Bromocresol green (BCG) dye binding methoOrdered By: Isaías Jordan on 01-83-6105Vlqalsj BCG dye [Mass/Vol]4.4 g/dL3.5-5.7FProMedica Toledo HospitalAlbumin BCG dye [Mass/Vol]Albumin [Mass/volume] in Serum or Plasma by Bromocresol green (BCG) dye binding metho3.5-5.7FProMedica Toledo HospitalAlkaline phosphatase [Enzymatic activity/volume] in Serum or PlasmaOrdered By: Isaías Jordan on 27-64-6235JNV [Catalytic activity/Vol]88 U/W49-777IyevvhwveSelect Medical Specialty Hospital - TrumbullALP [Catalytic activity/Vol]Alkaline phosphatase [Enzymatic activity/volume] in Serum or Nfapja88-502PmhyxhjkcSelect Medical Specialty Hospital - TrumbullAspartate aminotransferase [Enzymatic activity/volume] in Serum or PlasmaOrdered By: Isaías Jordan on 90-61-6392KXI [Catalytic activity/Vol]21 U/X37-35CscxymcmnSelect Medical Specialty Hospital - TrumbullAST [Catalytic activity/Vol]Aspartate aminotransferase [Enzymatic activity/volume] in Serum or Jzxjpj74-47PouhqpurpSelect Medical Specialty Hospital - TrumbullBasophils Auto (Bld) [#/Vol]Ordered By: Isaías Jordan on 28-20-0284Qhjnyxytx (Bld) [#/Vol]0.1 10*3/uL0.0-0.2 [facility]ullBasophils (Bld) [#/Vol]Automated basophil count 0.0-0.2FProMedica Toledo HospitalBasophils/100 WBC Auto (Bld)Ordered By: Isaías Jordan on 51-22-2557Kxhinlulf/100 WBC (Bld)1.2 %.[facility]ullBasophils/100 WBC (Bld)Automated basophil %.[facility] TrumbullBilirubin.total [Mass/volume] in Serum or PlasmaOrdered By: Isaías Jordan on 69-57-1263Vlmquiqik [Mass/Vol]0.8 mg/dL0.3-1.0[facility] TrumbullBilirubin [Mass/Vol]Bilirubin.total [Mass/volume] in Serum or Plasma0.3-1.0[facility]umbullCalcium [Mass/volume] in Serum or PlasmaOrdered By: Isaías Jordan on 05-01-8757Krypvia [Mass/Vol]10.3 mg/dL8.6-10.3FProMedica Toledo HospitalCalcium [Mass/Vol]Calcium [Mass/volume] in Serum or Plasma8.6-10.3FProMedica Toledo HospitalCarbon dioxide, total [Moles/volume] in Serum or PlasmaOrdered By: Isaías Jordan on 46-93-7896ML2 [Moles/Vol]27.3 mmol/L21.0-31.0[facility] CO2 [Moles/Vol]Carbon dioxide, total [Moles/volume] in Serum or Isgsgs47.0-31.0 [facility]umbullChloride [Moles/volume] in Serum or Plasma Ordered By: Isaías Jordan on 86-58-6256Ojjjcnek [Moles/Vol]105 mmol/L98-107 [facility] TrumbullChloride [Moles/Vol]Chloride [Moles/volume] in Serum or Eowtfs46-361VuhsvsqytSelect Medical Specialty Hospital - TrumbullCreatinine [Mass/volume] in Serum or PlasmaOrdered By: Isaías Jordan on 76-01-0709Pwgmddllim [Mass/Vol]0.73 mg/dL0.60-1.20[facility] TrumbullCreatinine [Mass/Vol]Creatinine [Mass/volume] in Serum or Plasma0.60-1.20[facility] TrumbullEosinophils Auto (Bld) [#/Vol]Ordered By: Isaías Jordan on 60-33-2140Wypzutivlsr (Bld) [#/Vol]0.1 10*3/uL0.0-0.45[facility]umbullEosinophils (Bld) [#/Vol]Automated eosinophil count0.0-0.45[facility]ullEosinophils/100 WBC Auto (Bld)Ordered By: Isaías Jordan on 54-81-4762Vwltnzkkhjk/100 WBC (Bld)2.8 %.[facility]ullEosinophils/100 WBC (Bld)Automated eosinophil %.[facility] TrumbullErythrocyte distribution width Auto (RBC) [Ratio]Ordered By: Isaías Jordan on 35-96-1424Hfkvvsuoaar distribution width (RBC) [Ratio]13.7 %11.9-15.3FProMedica Toledo HospitalErythrocyte distribution width (RBC) [Ratio]Erythrocyte distribution width [Ratio] by Automated count11.9-15.3 [facility]umbullGlobulin Calc (S) [Mass/Vol]Ordered By: Isaías Jordan on 85-42-1856Qedpmsts (S) [Mass/Vol]2.9 g/dLSelect Medical Specialty Hospital - TrumbullGlobulin (S) [Mass/Vol]Serum globulin measurement by calculation (mass/volume)[facility]ullGlucose [Mass/volume] in Serum or PlasmaOrdered By: Isaías Jordan on 98-20-6181Etalrlf [Mass/Vol]80 mg/dL 70-100[facility] TrumbullComment on above:ADA recommended reference rangeRandom Glucose Reference Range is dependent on time and content of last meal. Glucose of more than 200 mg/dL in a nonstressed, ambulatory subject supports the diagnosisof Diabetes Mellitus.Glucose [Mass/Vol]Glucose [Mass/volume] in Serum or Uosnss51-211HqcgjtrrnSelect Medical Specialty Hospital - TrumbullComment on above:ADA recommended reference rangeRandom Glucose Reference Range is dependent on time and content of last meal. Glucose of more than 200 mg/dL in a nonstressed, ambulatory subject supports the diagnosisof Diabetes Mellitus. Hematocrit Auto (Bld) [Volume fraction]Ordered By: Isaías Jordan on 04-29-9746Lqxjzezpam (Bld) [Volume fraction]40.8 %34.0-46.4FProMedica Toledo HospitalHematocrit (Bld) [Volume fraction]Hematocrit [Volume Fraction] of Blood by Automated count34.0-46.4FProMedica Toledo HospitalHemoglobin [Mass/volume] in BloodOrdered By: Isaías Jordan on 31-17-5225Ohjygpkgxd (Bld) [Mass/Vol]13.8 g/dL11.8-15.4FProMedica Toledo HospitalHemoglobin (Bld) [Mass/Vol]Hemoglobin [Mass/volume] in Blood11.8-15.4FProMedica Toledo HospitalLeukocytes [#/volume] corrected for nucleated erythrocytes in Blood by Automated counOrdered By: Isaías Jordan on 37-76-6964QKA corrected for nucl RBC Auto (Bld) [#/Vol]5.1 10*3/uL3.8-11.6FProMedica Toledo HospitalWBC corrected for nucl RBC Auto (Bld) [#/Vol]Leukocytes [#/volume] corrected for nucleated erythrocytes in Blood by Automated coun3.8-11.6FProMedica Toledo HospitalLymphocytes Auto (Bld) [#/Vol]Ordered By: Isaías Jordan on 57-07-7552Xuxsyqotggo (Bld) [#/Vol]2.0 10*3/uL1.00-4.8[facility] TrumbullLymphocytes (Bld) [#/Vol]Lymphocytes [#/volume] in Blood by Automated count1.00-4.8[facility]ullLymphocytes/100 WBC Auto (Bld)Ordered By: Isaías Jordan on 53-33-5222Blzsskqbtvu/100 WBC (Bld) 39.4 %.[facility]ullLymphocytes/100 WBC (Bld)Lymphocytes/100 leukocytes in Blood by Automated count.[facility] Auto (RBC) [Entitic mass]Ordered By: Isaías Jordan on 20-40-5880KEM (RBC) [Entitic mass]32.3 pg24.7-34.3FWyandot [facility] (RBC) [Entitic mass][facility] [Entitic mass] by Automated count24.7-34.3FLicking [facility] Auto (RBC) [Mass/Vol]Ordered By: Isaías Jordan on 10-03-9393RPXS (RBC) [Mass/Vol]33.7 g/dL32.0-35.0[facility] (RBC) [Mass/Vol]MCHC [Mass/volume] by Automated count32.0-35.0 [facility] Auto (RBC) [Entitic vol]Ordered By: Isaías Jordan on 67-91-5994MFE (RBC) [Entitic vol]95.7 qH03-934SuvukhvhcTriHealth Good Samaritan HospitalV (RBC) [Entitic vol]MCV [Entitic volume] by Automated count 80-100[facility]ullMonocytes Auto (Bld) [#/Vol]Ordered By: Isaías Jordan on 91-00-2799Qulbctkrc (Bld) [#/Vol]0.5 10*3/uL0.0-0.8 [facility]ullMonocytes (Bld) [#/Vol]Automated blood monocyte count0.0-0.8[facility]ullMonocytes/100 WBC Auto (Bld) Ordered By: Isaías Jordan on 93-24-3192Djmhbxdgw/100 WBC (Bld)9.0 %. [facility]ullMonocytes/100 WBC (Bld)Automated monocyte %. [facility] Tr[facility]ullNeutrophils Auto (Bld) [#/Vol]Ordered By: Isaías Jordan on 53-81-9786Kntkomxxiri (Bld) [#/Vol]2.4 10*3/uL1.8-7.7 [facility]ullNeutrophils (Bld) [#/Vol]Neutrophils [#/volume] in Blood by Automated count1.8-7.7FProMedica Toledo Hospital Neutrophils/100 WBC Auto (Bld)Ordered By: Isaías Jordan on 03-20-2023 Neutrophils/100 WBC (Bld)47.6 %.[facility]ullNeutrophils/100 WBC (Bld)Automated neutrophil %.[facility] TrumbullNo Panel InformationOrdered By: Isaías Jordan on [id number] GFR (CKD-EPI)> 60.0 mL/MinSelect Medical Specialty Hospital - TrumbullPharmacy Creatinine Clearance (Chem 86.44[facility] TrumbullNucleated erythrocytes [Presence] in Blood by Automated countOrdered By: Isaías Jordan on 58-96-7038Tpxzepkkj RBC Auto Ql (Bld)0.1 /100{WBC}0-0.5FProMedica Toledo HospitalNucleated RBC Auto Ql (Bld)Nucleated erythrocytes [Presence] in Blood by Automated count0-0.5 [facility] TrumbullPlatelet mean volume Auto (Bld) [Entitic vol] Ordered By: Isaías Jordan on 78-03-5253Iaejczjx mean volume (Bld) [Entitic vol]8.9 fL6.3-10.7FProMedica Toledo HospitalPlatelet mean volume (Bld) [Entitic vol]Platelet mean volume [Entitic volume] in Blood by Automated count 6.3-10.7FProMedica Toledo HospitalPlatelets Auto (Bld) [#/Vol]Ordered By: Isaías Jordan on 16-09-5984Zcvcjyffo (Bld) [#/Vol]198 10*3/lX618-570 [facility]ullPlatelets (Bld) [#/Vol]Platelets [#/volume] in Blood by Automated ibjvr577-133LaoowytsoSelect Medical Specialty Hospital - TrumbullPotassium [Moles/volume] in Serum or PlasmaOrdered By: Isaías Jordan on 03-20-2023 Potassium [Moles/Vol]4.3 mmol/L3.5-5.1FProMedica Toledo HospitalPotassium [Moles/Vol]Potassium [Moles/volume] in Serum or Plasma3.5-5.1FProMedica Toledo HospitalProtein [Mass/volume] in Serum or PlasmaOrdered By: Isaías Jordan on 93-16-2788Razgsvq [Mass/Vol]7.3 g/dL6.4-8.9[facility] TrumbullProtein [Mass/Vol]Protein [Mass/volume] in Serum or Plasma6.4-8.9 [facility] TrumbullRBC Auto (Bld) [#/Vol]Ordered By: Isaías Jordan on 86-09-6812ZTB (Bld) [#/Vol]4.26 10*6/uL3.60-5.00[facility] TrumbullRB (Bld) [#/Vol]Erythrocytes [#/volume] in Blood by Automated count3.60-5.00[facility] Medical Centererum or plasma albumin/globulin mass ratioOrdered By: Isaías Jordan on 99-36-9625Sjdydbw/Globulin [Mass ratio]1.5 {ratio}[facility] TrumbullAlbumin/Globulin [Mass ratio] Serum or plasma albumin/globulin mass ratioSelect Medical Specialty Hospital - Trumbull Serum or plasma anion gap determinationOrdered By: Isaías Jordan on 52-32-3533Qojpr gap [Moles/Vol]11.0 mmol/L6.0-15.0[facility] TrumbullAnion gap [Moles/Vol]Serum or plasma anion gap determination6.0-15.[address] [facility] Medical Centererum or plasma carcinoembryonic antigen measurement (mass/volume)Ordered By: Isaías Jordan on 03-20-2023 Carcinoembryonic Ag [Mass/Vol]3.3 ng/mLHigh0.0-3.0[facility] TrumbullCarcinoembryonic Ag [Mass/Vol]Serum or plasma carcinoembryonic antigen measurement (mass/volume)High0.0-3.0[facility] Medical Centerodium [Moles/volume] in Serum or PlasmaOrdered By: Isaías Jordan on 03-20-2023 Sodium [Moles/Vol]139 mmol/C995-422MctmiehbdUniversity Hospitals St. John Medical Centerodium [Moles/Vol]Sodium [Moles/volume] in Serum or Ewqgtr123-382Qdiywzycy Regional Medical CenterUrea nitrogen [Mass/volume] in Serum or PlasmaOrdered By: Isaías Jordan on 54-95-7471Xxzx nitrogen [Mass/Vol]16 mg/dL01-28[facility] TrumbullUrea nitrogen [Mass/Vol]Urea nitrogen [Mass/volume] in Serum or Plasma01-28[facility] TrumbullWBC Auto (Bld) [#/Vol]Ordered By: Isaías Jordan on 14-21-1030EJQ (Bld) [#/Vol]5.1 10*3/uL3.8-11.6FProMedica Toledo HospitalWBC (Bld) [#/Vol]Leukocytes [#/volume] in Blood by Automated count3.8-11.[facility] HospitalCBC AUTO DIFFon 90-48-6080GGBS #0.0 103/ulNormal0.0-0.1The [facility] HospitalComment on above: Performed By: #### CBC #### [facility] [address] [place] [address] Dr. Doreen BetancourtBasophils/100 WBC (Bld)0.6 %Normal0.2-2.0The [facility] Comment on above:Performed By: #### CBC #### [facility] [address] [address] [address] Doreen Everett #0.0 103/ulNormal0.0-0.7The [facility] HospitalComment on above: Performed By: #### CBC #### [facility] [address] [address] [address] Doreen Gregoryosinophils/100 WBC (Bld)0.6 %Critically low0.9-7.0The [facility] HospitalComment on above:Performed By: #### CBC #### [facility] [address] [address] [address] Doreen Gregoryrythrocyte distribution width (RBC) [Ratio]13.7 %Knnwvv35.0-15.0 The [facility] HospitalComment on above:Performed By: #### CBC #### [facility] [address] [address] [address] Doreen BetancourtHematocrit (Bld) [Volume fraction]41.0 %Erxzqv64.0-48.0The [facility] HospitalComment on above:Performed By: #### CBC #### [facility] [address] [place] [address] Dr. Doreen BetanocurtHemoglobin (Bld) [Mass/Vol]13.1 g/pIZzzbgr99.0-16.0The [facility] HospitalComment on above:Performed By: #### CBC #### [facility] [address] [place] [address] Dr. Doreen Shepherd #0.00 10e3/ulNormal0.00-0.03The [facility] HospitalComment on above:Performed By: #### CBC #### [facility] [address] [place] [address] Dr. Doreen Sehpherd %0.0 %Normal0.0-0.5The [facility] HospitalComment on above: Performed By: #### CBC #### [facility] [address] [place] [address] Dr. Doreen Kaiser #2.0 103/ulNormal1.2-3.8The [facility] HospitalComment on above:Performed By: #### CBC #### [facility] [address] [place] [address] Dr. Doreen Camachohocytes/100 WBC (Bld)55.3 %Wptbbh97.5-60.0The [facility] HospitalComment on above:Performed By: #### CBC #### [facility] [address] [place] [address] Dr. Doreen DixonUAL DIFF REQNONormalThe [facility] HospitalComment on above: Performed By: #### CBC #### [facility] [address] [place] [address] Dr. Doreen Tapia (RBC) [Entitic mass]33.2 amGxmbgy04.7-34.0The [facility] HospitalComment on above:Performed By: #### CBC #### [facility] [address] [place] [address] Dr. Doreen StearnsHC (RBC) [Mass/Vol]32.0 g/xNPzozng49.9-35.2The [facility] HospitalComment on above:Performed By: #### CBC #### [facility] [address] [place] [address] Dr. Doreen StearnsV (RBC) [Entitic vol]104.1 fLCritically high81.0-99.0The [facility] HospitalComment on above:Performed By: #### CBC #### [facility] [address] [place] [address] Dr. Doreen Cheema #0.7 103/ulNormal0.3-0.8The [facility] HospitalComment on above:Performed By: #### CBC #### [facility] [address] [place] [address] Dr. Doreen Ruizocytes/100 WBC (Bld)18.7 %Critically high1.7-12.0The [facility] HospitalComment on above:Performed By: #### CBC #### [facility] [address] [place] [address] Dr. Doreen Brar #0.9 103/ulCritically low1.4-6.5The [facility] HospitalComment on above:Performed By: #### CBC #### [facility] [address] [place] [address] Dr. Doreen Wrenutrophils/100 WBC (Bld)24.8 %Critically low43.0-75.0The [facility] HospitalComment on above:Performed By: #### CBC #### [facility] [address] [place] [address] Dr. Doreen Goldsteinlet mean volume (Bld) [Entitic vol]10.5 fLNormal9.5-13.5The [facility] HospitalComment on above:Performed By: #### CBC #### [facility] [address] [place] [address] Dr. Doreen DurantT121 103/ulCritically zhy888-746Dwq [facility] HospitalComment on above:Performed By: #### CBC #### [facility] [address] [place] [address] Dr. Doreen BetancourtRBC3.94 106/ulCritically low4.20-5.40The [facility] HospitalComment on above:Performed By: #### CBC #### [facility] [address] [place] [address] Dr. Doreen BetancourtWBC3.6 103/ulCritically low4.0-11.0The [facility] HospitalComment on above:Performed By: #### CBC #### [facility] [address] [place] [address] Dr. Doreen BetancourtMAGNESIUMon 81-82-6194Xccwtjadz [Mass/Vol]2.0 mg/dLNormal1.8-2.4 The [facility] HospitalComment on above:Performed By: #### MG, CMP #### [facility] [address] [place] [address] Dr. Doreen BetancourtPROF 14(COMP METB)on 27-10-3893Fwuzffn [Mass/Vol]3.7 g/dLNormal 3.4-5.0The [facility] HospitalComment on above:Performed By: #### MG, CMP #### [facility] [address] [place] [address] Dr. Doreen BetancourtAlbumin/Globulin [Mass ratio]1.0 {ratio}NormalThe [facility] HospitalComup health system on above:Performed By: #### MG, CMP #### [facility] [address] [place] [address] Dr. Doreen Lopez [Catalytic activity/Vol]161 U/LCritically jnhb56-620Qnz [facility] HospitalComment on above:Performed By: #### MG, CMP #### [facility] [address] [place] [address] Dr. Doreen Friend [Catalytic activity/Vol]49 U/YYuujke49-37Nda [facility] HospitalComment on above:Performed By: #### MG, CMP #### [facility] [address] [place] [address] Dr. Doreen Cifuentes gap [Moles/Vol]9.8 mmol/LNormalThe [facility] HospitalComment on above:Performed By: #### MG, CMP #### [facility] [address] [address] [address] Doreen BetancourtAST [Catalytic activity/Vol]44 U/LCritically fzfy29-06Gkv [facility] HospitalComment on above:Performed By: #### MG, CMP #### [facility] [address] [address] [address] Doreen BetancourtBilirubin [Mass/Vol]0.4 mg/dLNormal0.2-1.0The [facility] Comment on above:Performed By: #### MG, CMP #### [facility] [address] [address] [address] Doreen BetancourtCalcium [Mass/Vol]9.6 mg/dLNormal8.5-10.1The [facility] Comment on above:Performed By: #### MG, CMP #### [facility] [address] [address] [address] Doreen BetancourtChloride [Moles/Vol]106 mmol/BPhxfpz69-543Edv [facility] Comment on above:Performed By: #### MG, CMP #### [facility] [address] [address] [address] Doreen BetancourtCO2 [Moles/Vol]30.1 mmol/RUytvai26.0-32.0[facility] Comment on above:Performed By: #### MG, CMP #### [facility] [address] [address] [address] Doreen BetancourtCreatinine [Mass/Vol]0.68 mg/dLNormal0.55-1.02The [facility] HospitalComment on above:Performed By: #### MG, CMP #### [facility] [address] [place] [address] Dr. Doreen GregoryGFR-AF EQUATORIAL GUINEAN>60Normal>=60The [facility] HospitalComment on above:Performed By: #### MG, CMP #### [facility] [address] [address] [address] Doreen GregoryGFR-NON AF EQUATORIAL GUINEAN>60Normal>=60The Dee HospitalComment on above:Performed By: #### MG, CMP #### [facility] [address] [address] [address] Doreen BetancourtGlobulin (S) [Mass/Vol]3.7 g/dLNormSt. Elizabeth HospitalComment on above:Performed By: #### MG, CMP #### [facility] [address] [address] [address] Doreen BetancourtGlucose [Mass/Vol]107 mg/dLCritically ynaw66-364Gdz [facility] HospitalComment on above:Performed By: #### MG, CMP #### [facility] [address] [place] [address] Dr. Doreen BetancourtPotassium [Moles/Vol]4.9 mmol/LNormal3.5-5.1The [facility] Comment on above:Performed By: #### MG, CMP #### [facility] [address] [place] [address] Dr. Doreen BetancourtProtein [Mass/Vol]7.4 g/dLNormal6.4-8.2The [facility] Comment on above:Performed By: #### MG, CMP #### [facility] [address] [place] [address] Dr. Doreen BetancourtSodium [Moles/Vol]141 mmol/EBplrgj210-811Wam [facility] Comment on above:Performed By: #### MG, CMP #### [facility] [address] [place] [address] Dr. Doreen BetancourtUrea nitrogen [Mass/Vol]11.0 mg/dLNormal7.0-18.0The [facility] HospitalComment on above:Performed By: #### MG, CMP #### [facility] [address] [place] [address] Dr. Doreen Copeland nitrogen/Creatinine [Mass ratio]16.2 mg/mgNoTrinity Health System East CampusComment on above:Performed By: #### MG, CMP #### [facility] [address] [place] [address] Dr. Doreen Keller AUTO DIFFon [id number] #0.0 103/ulNormal0.0-0.1The [facility] Hospitalment on above:Performed By: #### MG, CMP #### [facility] [address] [place] [address] Dr. Doreen BetancourtBasophils/100 WBC (Bld)0.5 %Normal0.2-2.0The [facility] Comment on above:Performed By: #### MG, CMP #### [facility] [address] [place] [address] Dr. Doreen Everett #0.0 103/ulNormal0.0-0.7The [facility] Hospitalment on above: Performed By: #### MG, CMP #### [facility] [address] [place] [address] Dr. Doreen Gregoryosinophils/100 WBC (Bld)0.8 %Critically low0.9-7.0The [facility] Hospitalment on above:Performed By: #### MG, CMP #### [facility] [address] [place] [address] Dr. Doreen Gregoryrythrocyte distribution width (RBC) [Ratio]13.2 %Jlcyxh51.0-15.0 The [facility] HospitalComment on above:Performed By: #### MG, CMP #### [facility] [address] [place] [address] Dr. Doreen BetancourtHematocrit (Bld) [Volume fraction]40.7 %Vdibaf59.0-48.0The [facility] Hospitalment on above:Performed By: #### MG, CMP #### [facility] [address] [place] [address] Dr. Doreen BetancourtHemoglobin (Bld) [Mass/Vol]13.5 g/cUMwvqdm19.0-16.0[facility] on above:Performed By: #### MG, CMP #### [facility] [address] [place] [address] Dr. Doreen Shepherd #0.00 10e3/ulNormal0.00-0.03The [facility] HospitalComment on above:Performed By: #### MG, CMP #### [facility] [address] [address] [address] Doreen Shepherd %0.0 %Normal0.0-0.5The [facility] HospitalComup health system on above: Performed By: #### MG, CMP #### [facility] [address] [place] [address] Dr. Doreen Kaiser #1.9 103/ulNormal1.2-3.8The [facility] HospitalComup health system on above:Performed By: #### MG, CMP #### [facility] [address] [place] [address] Dr. Doreen Camachohocytes/100 WBC (Bld)51.8 %Ydbllm32.5-60.0[facility] on above:Performed By: #### MG, CMP #### [facility] [address] [place] [address] Dr. Doreen DixonUAL DIFF REQNONormalThe [facility] HospitalComment on above: Performed By: #### MG, CMP #### [facility] [address] [place] [address] Dr. Doreen Tapia (RBC) [Entitic mass]34.3 pgCritically high26.7-34.0[facility] on above:Performed By: #### MG, CMP #### [facility] [address] [place] [address] Dr. Doreen Stearns (RBC) [Mass/Vol]33.2 g/wLZshcot30.9-35.2[facility] on above:Performed By: #### MG, CMP #### [facility] [address] [place] [address] Dr. Doreen Stearns (RBC) [Entitic vol]103.3 fLCritically high81.0-99.0[facility] on above:Performed By: #### MG, CMP #### [facility] [address] [place] [address] Dr. Doreen Cheema #0.5 103/ulNormal0.3-0.8The [facility] HospitalComment on above:Performed By: #### MG, CMP #### [facility] [address] [place] [address] Dr. Doreen Ruizocytes/100 WBC (Bld)13.9 %Critically high1.7-12.0The [facility] HospitalComment on above:Performed By: #### MG, CMP #### [facility] [address] [place] [address] Dr. Doreen WrenUT #1.2 103/ulCritically low1.4-6.5The [facility] HospitalComment on above:Performed By: #### MG, CMP #### [facility] [address] [place] [address] Dr. Doreen Wrenutrophils/100 WBC (Bld)33.0 %Critically low43.0-75.0The [facility] HospitalComment on above:Performed By: #### MG, CMP #### [facility] [address] [place] [address] Dr. Doreen BetancourtPlatelet mean volume (Bld) [Entitic vol]10.0 fLNormal9.5-13.5The [facility] HospitalComment on above:Performed By: #### MG, CMP #### [facility] [address] [place] [address] Dr. Doreen BetancourtPLT129 103/ulCritically ulx998-823Ire [facility] HospitalComment on above:Performed By: #### MG, CMP #### [facility] [address] [place] [address] Dr. Doreen BetancourtRBC3.94 106/ulCritically low4.20-5.40The [facility] HospitalComment on above:Performed By: #### MG, CMP #### [facility] [address] [place] [address] Dr. Doreen BetancourtWBC3.7 103/ulCritically low4.0-11.0The [facility] HospitalComment on above:Performed By: #### MG, CMP #### [facility] [address] [place] [address] Dr. Doreen BetancourtMAGNESIUMon 47-42-1599Yohyativc [Mass/Vol]2.0 mg/dLNormal1.8-2.4 The [facility] HospitalComment on above:Performed By: #### MG, CMP #### [facility] [address] [address] [address] Doreen BetancourtPROF 14(COMP METB)on 03-26-6792Tbauumm [Mass/Vol]3.7 g/dLNormal 3.4-5.0The [facility] HospitalComment on above:Performed By: #### MG, CMP #### [facility] [address] [address] [address] Doreen BetancourtAlbumin/Globulin [Mass ratio]1.0 {ratio}NormalThe [facility] HospitalComment on above:Performed By: #### MG, CMP #### [facility] [address] [address] [address] Doreen CarolinaP [Catalytic activity/Vol]133 U/LCritically ptao49-474Hsm [facility] HospitalComment on above:Performed By: #### MG, CMP #### [facility] [address] [address] [address] Doreen Friend [Catalytic activity/Vol]47 U/CApqmtq80-13Lee [facility] HospitalComment on above:Performed By: #### MG, CMP #### [facility] [address] [address] [address] Doreen Cifuentes gap [Moles/Vol]10.8 mmol/LNormalThe [facility] Comment on above:Performed By: #### MG, CMP #### [facility] [address] [address] [address] [Catalytic activity/Vol]39 U/LCritically dxvz76-66Wlz [facility] HospitalComment on above:Performed By: #### MG, CMP #### [facility] [address] [address] [address] Doreen BetancourtBilirubin [Mass/Vol]0.5 mg/dLNormal0.2-1.0The [facility] Comment on above:Performed By: #### MG, CMP #### [facility] [address] [address] [address] Doreen BetancourtCalcium [Mass/Vol]9.4 mg/dLNormal8.5-10.1The [facility] Comment on above:Performed By: #### MG, CMP #### [facility] [address] [address] [address] Doreen BetancourtChloride [Moles/Vol]107 mmol/WRkryob42-689Mei [facility] Comment on above:Performed By: #### MG, CMP #### [facility] [address] [address] [address] Doreen BetancourtCO2 [Moles/Vol]27.7 mmol/VJupuym20.0-32.0[facility] Comment on above:Performed By: #### MG, CMP #### [facility] [address] [place] [address] Dr. Doreen BetancourtCreatinine [Mass/Vol]0.70 mg/dLNormal0.55-1.02[facility] HospitalComment on above:Performed By: #### MG, CMP #### [facility] [address] [place] [address] Dr. Doreen GregoryGFR-AF EQUATORIAL GUINEAN>60Normal>=60The [facility] HospitalComment on above:Performed By: #### MG, CMP #### [facility] [address] [place] [address] Dr. Doreen GregoryGFR-NON AF EQUATORIAL GUINEAN>60Normal>=60The [facility] HospitalComment on above:Performed By: #### MG, CMP #### [facility] [address] [place] [address] Dr. Doreen BetancourtGlobulin (S) [Mass/Vol]3.7 g/dLNormalThe [facility] HospitalComment on above:Performed By: #### MG, CMP #### [facility] [address] [place] [address] Dr. Doreen BetancourtGlucose [Mass/Vol]99 mg/zYGnudtq01-362BfxJoint [facility] District [facility] Hospital Comment on above:Performed By: #### MG, CMP #### [facility] [address] [place] [address] Dr. Doreen BetancourtPotassium [Moles/Vol]4.5 mmol/LNormal3.5-5.1[facility] Comment on above:Performed By: #### MG, CMP #### [facility] [address] [place] [address] Dr. Doreen BetancourtProtein [Mass/Vol]7.4 g/dLNormal6.4-8.2The [facility] Comment on above:Performed By: #### MG, CMP #### [facility] [address] [place] [address] Dr. Doreen Maderadium [Moles/Vol]141 mmol/WYexsce420-716Hdy [facility] Comment on above:Performed By: #### MG, CMP #### [facility] [address] [place] [address] Dr. Doreen BetancourtUrea nitrogen [Mass/Vol]13.0 mg/dLNormal7.0-18.0[facility] HospitalComment on above:Performed By: #### MG, CMP #### [facility] [address] [place] [address] Dr. Doreen Copeland nitrogen/Creatinine [Mass ratio]18.6 mg/mgNormalThe [facility] HospitalComment on above:Performed By: #### MG, CMP #### [facility] [address] [place] [address] Dr. Doreen Keller AUTO DIFFon 11-61-8629ORIU #0.1 103/ulNormal0.0-0.1[facility] HospitalComment on above:Performed By: #### CBC #### [facility] [address] [place] [address] Dr. Doreen Bullardphils/100 WBC (Bld)1.0 %Normal0.2-2.0[facility] Comment on above:Performed By: #### CBC #### [facility] [address] [place] [address] Dr. Doreen Everett #0.0 103/ulNormal0.0-0.7The [facility] HospitalComment on above: Performed By: #### CBC #### [facility] [address] [place] [address] Dr. Doreen Gregoryosinophils/100 WBC (Bld)0.8 %Critically low0.9-7.0The [facility] HospitalComment on above:Performed By: #### CBC #### [facility] [address] [place] [address] Dr. Doreen Gregoryrythrocyte distribution width (RBC) [Ratio]13.2 %Vvcfqd08.0-15.0 The [facility] HospitalComment on above:Performed By: #### CBC #### [facility] [address] [place] [address] Dr. Doreen BetancourtHematocrit (Bld) [Volume fraction]40.3 %Swgogy68.0-48.0The [facility] HospitalComment on above:Performed By: #### CBC #### [facility] [address] [place] [address] Dr. Doreen BetancourtHemoglobin (Bld) [Mass/Vol]13.3 g/vKEnajzh19.0-16.0The [facility] HospitalComment on above:Performed By: #### CBC #### [facility] [address] [place] [address] Dr. Doreen Shepherd #0.02 10e3/ulNormal0.00-0.03The [facility] HospitalComment on above:Performed By: #### CBC #### [facility] [address] [place] [address] Dr. Doreen Shepherd %0.4 %Normal0.0-0.5The [facility] HospitalComment on above: Performed By: #### CBC #### [facility] [address] [place] [address] Dr. Doreen NunezMPH #1.8 103/ulNormal1.2-3.8The [facility] HospitalComment on above:Performed By: #### CBC #### [facility] [address] [place] [address] Dr. Doreen Nunezmphocytes/100 WBC (Bld)36.8 %Ocguqm78.5-60.0The [facility] HospitalComup [facility] on above:Performed By: #### CBC #### [facility] [address] [place] [address] Dr. Doreen Yusuf DIFF REQNONormalThe [facility] HospitalComment on above: Performed By: #### CBC #### [facility] [address] [place] [address] Dr. Doreen Stearns (RBC) [Entitic mass]33.8 efEzhaqf50.7-34.0The [facility] HospitalComment on above:Performed By: #### CBC #### [facility] [address] [place] [address] Dr. Doreen Stearns (RBC) [Mass/Vol]33.0 g/zRVkqndn37.9-35.2The [facility] HospitalComment on above:Performed By: #### CBC #### [facility] [address] [place] [address] Dr. Doreen Stearns (RBC) [Entitic vol]102.5 fLCritically high81.0-99.0The [facility] HospitalComup [facility] on above:Performed By: #### CBC #### [facility] [address] [place] [address] Dr. Doreen Cheema #0.6 103/ulNormal0.3-0.8The [facility] HospitalComment on above:Performed By: #### CBC #### [facility] [address] [place] [address] Dr. Doeren Ruizocytes/100 WBC (Bld)12.3 %Critically high1.7-12.0The [facility] HospitalCom[facility] on above:Performed By: #### CBC #### [facility] [address] [place] [address] Dr. Doreen Brar #2.4 103/ulNormal1.4-6.5The [facility] HospitalComment on above:Performed By: #### CBC #### [facility] [address] [address] [address] Doreen BetancourtNeutrophils/100 WBC (Bld)48.7 %Wucepr40.0-75.0[facility] on above:Performed By: #### CBC #### [facility] [address] [place] [address] Dr. Doreen Goldsteinlet mean volume (Bld) [Entitic vol]10.3 fLNormal9.5-13.5The [facility] HospitalComup [facility] on above:Performed By: #### CBC #### [facility] [address] [place] [address] Dr. Doreen BetancourtPLT239 103/rjCgjnwo192-464Dfl [facility] on above: Performed By: #### CBC #### [facility] [address] [place] [address] Dr. Doreen BetancourtRBC3.93 106/ulCritically low4.20-5.40[facility] on above:Performed By: #### CBC #### [facility] [address] [place] [address] Dr. Doreen BetancourtWBC4.9 103/ulNormal4.0-11.0[facility] on above: Performed By: #### CBC #### [facility] [address] [place] [address] Dr. Doreen BetancourtMAGNESIUMon 19-26-9477Vdesonljx [Mass/Vol]1.9 mg/dLNormal1.8-2.4 [facility] on above:Performed By: #### MG, CMP #### [facility] [address] [place] [address] Dr. Doreen BetancourtPROF 14(COMP METB)on 94-06-7294Ukahkne [Mass/Vol]3.5 g/dLNormal 3.4-5.0[facility] on above:Performed By: #### CMP, MG #### [facility] [address] [place] [address] Dr. Doreen BetancourtAlbumin/Globulin [Mass ratio]0.9 {ratio}NormalJoint Township District Memorial HospitalComment on above:Performed By: #### CMP, MG #### [facility] [address] [place] [address] Dr. Doreen Lopez [Catalytic activity/Vol]153 U/LCritically mutv85-820Nab [facility] HospitalComment on above:Performed By: #### CMP, MG #### [facility] [address] [place] [address] Dr. Doreen Friend [Catalytic activity/Vol]36 U/NTadeiq83-90Zun [facility] HospitalComment on above:Performed By: #### CMP, MG #### [facility] [address] [place] [address] Dr. Doreen Cifuentes gap [Moles/Vol]11.7 mmol/LNormalThe [facility] Comment on above:Performed By: #### CMP, MG #### [facility] [address] [place] [address] [Catalytic activity/Vol]30 U/NRjidkp86-99Ifs [facility] HospitalComment on above:Performed By: #### CMP, MG #### [facility] [address] [place] [address] Dr. Doreen BetancourtBilirubin [Mass/Vol]0.5 mg/dLNormal0.2-1.0[facility] Comment on above:Performed By: #### CMP, MG #### [facility] [address] [place] [address] Dr. Doreen BetancourtCalcium [Mass/Vol]9.2 mg/dLNormal8.5-10.1[facility] Comment on above:Performed By: #### CMP, MG #### [facility] [address] [place] [address] Dr. Doreen BetancourtChloride [Moles/Vol]105 mmol/YModpdg12-293Vby [facility] Comment on above:Performed By: #### CMP, MG #### [facility] [address] [place] [address] Dr. Doreen BetancourtCO2 [Moles/Vol]27.3 mmol/LNhyndd95.0-32.0The [facility] Comment on above:Performed By: #### CMP, MG #### [facility] [address] [place] [address] Dr. Doreen BetancourtCreatinine [Mass/Vol]0.75 mg/dLNormal0.55-1.02The [facility] HospitalComment on above:Performed By: #### CMP, MG #### [facility] [address] [place] [address] Dr. Doreen GregoryGFR-AF EQUATORIAL GUINEAN>60Normal>=60The [facility] HospitalComment on above:Performed By: #### CMP, MG #### [facility] [address] [place] [address] Dr. Doreen Jolley-NON AF EQUATORIAL GUINEAN>60Normal>=60The [facility] HospitalComment on above:Performed By: #### CMP, MG #### [facility] [address] [place] [address] Dr. Doreen BetancourtGlobulin (S) [Mass/Vol]4.0 g/dLNormalThe [facility] HospitalComment on above:Performed By: #### CMP, MG #### [facility] [address] [place] [address] Dr. Doreen BetancourtGlucose [Mass/Vol]89 mg/wMSqwrnt86-567WvoJoint Township District Memorial Hospital Comment on above:Performed By: #### CMP, MG #### [facility] [address] [place] [address] Dr. Doreen BetancourtPotassium [Moles/Vol]4.0 mmol/LNormal3.5-5.1The [facility] Comment on above:Performed By: #### CMP, MG #### [facility] [address] [place] [address] Dr. Doreen BetancourtProtein [Mass/Vol]7.5 g/dLNormal6.4-8.2The [facility] Comment on above:Performed By: #### CMP, MG #### [facility] [address] [place] [address] Dr. Yilan ChangSodium [Moles/Vol]140 mmol/EIcxyzc224-389Cpj [facility] Comment on above:Performed By: #### CMP, MG #### [facility] [address] [place] [address] Dr. Doreen Copeland nitrogen [Mass/Vol]18.0 mg/dLNormal7.0-18.0The [facility] HospitalComment on above:Performed By: #### CMP, MG #### [facility] [address] [place] [address] Dr. Doreen Copeland nitrogen/Creatinine [Mass ratio]24.0 mg/mgNormalThe [facility] HospitalComment on above:Performed By: #### CMP, MG #### [facility] [address] [place] [address] Dr. Doreen BetancourtMagnesium [Mass/volume] in Serum or PlasmaOrdered By: Isaías Jordan on 60-62-7375Boyzfhcya [Mass/Vol]2.2 mg/dL1.9-2.7FProMedica Toledo HospitalMagnesium [Mass/Vol]Magnesium [Mass/volume] in Serum or Plasma 1.9-2.7FProMedica Toledo HospitalCBC AUTO DIFFon [id number] #0.0 103/ulNormal0.0-0.1[facility] HospitalComment on above:Performed By: #### CBC #### [facility] [address] [place] [address] Dr. Doreen BetancourtBasophils/100 WBC (Bld)0.3 %Normal0.2-2.0The [facility] Comment on above:Performed By: #### CBC #### [facility] [address] [place] [address] Dr. Doreen Everett #0.0 103/ulNormal0.0-0.7The [facility] HospitalComment on above: Performed By: #### CBC #### [facility] [address] [place] [address] Dr. Doreen Gregoryosinophils/100 WBC (Bld)0.9 %Normal0.9-7.0The [facility] Comment on above:Performed By: #### CBC #### [facility] [address] [place] [address] Dr. Doreen Gregoryrythrocyte distribution width (RBC) [Ratio]16.3 %Critically high 11.0-15.0The [facility] HospitalComment on above:Performed By: #### CBC #### [facility] [address] [place] [address] Dr. Doreen BetancourtHematocrit (Bld) [Volume fraction]37.3 %Sguikm17.0-48.0The [facility] HospitalComment on above:Performed By: #### CBC #### [facility] [address] [place] [address] Dr. Doreen BetancourtHemoglobin (Bld) [Mass/Vol]12.4 g/lKLuufkr23.0-16.0The [facility] HospitalComment on above:Performed By: #### CBC #### [facility] [address] [place] [address] Dr. Doreen Shepherd #0.01 10e3/ulNormal0.00-0.03The [facility] HospitalComment on above:Performed By: #### CBC #### [facility] [address] [place] [address] Dr. Doreen Shepherd %0.3 %Normal0.0-0.5The [facility] HospitalComment on above: Performed By: #### CBC #### [facility] [address] [place] [address] Dr. Doreen Kaiser #1.1 103/ulCritically low1.2-3.8The [facility] Comment on above:Performed By: #### CBC #### [facility] [address] [place] [address] Dr. Doreen Camachohocytes/100 WBC (Bld)30.7 %Cgvuqj09.5-60.0The [facility] HospitalComment on above:Performed By: #### CBC #### [facility] [address] [place] [address] Dr. Doreen DixonUAL DIFF REQNONormalThe [facility] HospitalComment on above: Performed By: #### CBC #### [facility] [address] [address] [address] Doreen Stearns (RBC) [Entitic mass]34.3 pgCritically high26.7-34.0The [facility] HospitalComment on above:Performed By: #### CBC #### [facility] [address] [place] [address] Dr. Doreen Stearns (RBC) [Mass/Vol]33.2 g/wCKvmnne29.9-35.2The [facility] HospitalComment on above:Performed By: #### CBC #### [facility] [address] [place] [address] Dr. Doreen Stearns (RBC) [Entitic vol]103.3 fLCritically high81.0-99.0The [facility] HospitalComment on above:Performed By: #### CBC #### [facility] [address] [place] [address] Dr. Doreen Cheema #0.4 103/ulNormal0.3-0.8The [facility] HospitalComment on above:Performed By: #### CBC #### [facility] [address] [place] [address] Dr. Doreen Ruizocytes/100 WBC (Bld)11.4 %Normal1.7-12.0The [facility] Comment on above:Performed By: #### CBC #### [facility] [address] [place] [address] Dr. Doreen Brar #2.0 103/ulNormal1.4-6.5The [facility] HospitalComment on above:Performed By: #### CBC #### [facility] [address] [place] [address] Dr. Doreen Wrenutrophils/100 WBC (Bld)56.4 %Irgwaz61.0-75.0The [facility] HospitalComment on above:Performed By: #### CBC #### [facility] [address] [place] [address] Dr. Doreen Goldsteinlet mean volume (Bld) [Entitic vol]10.0 fLNormal9.5-13.5The [facility] HospitalComment on above:Performed By: #### CBC #### [facility] [address] [place] [address] Dr. Doreen BetancourtPLT128 103/ulCritically mcz710-500Txy [facility] HospitalComment on above:Performed By: #### CBC #### [facility] [address] [place] [address] Dr. Doreen BetancourtRBC3.61 106/ulCritically low4.20-5.40The [facility] HospitalComment on above:Performed By: #### CBC #### [facility] [address] [place] [address] Dr. Doreen BetancourtWBC3.5 103/ulCritically low4.0-11.0The [facility] HospitalComment on above:Performed By: #### CBC #### [facility] [address] [place] [address] Dr. Doreen BetancourtMAGNESIUMon 54-74-4097Fdbqbiztb [Mass/Vol]1.9 mg/dLNormal1.8-2.4 The [facility] HospitalComment on above:Performed By: #### CVDTBH #### [facility] [address] [place] [address] Dr. Doreen Silva 14(COMP METB)on 30-64-3428Qzfpsfh [Mass/Vol]3.7 g/dLNormal 3.4-5.0The [facility] HospitalComment on above:Performed By: #### CVDTBH #### [facility] [address] [place] [address] Dr. Doreen BetancourtAlbumin/Globulin [Mass ratio]1.1 {ratio}NormalThe [facility] HospitalComment on above:Performed By: #### CVDTBH #### [facility] [address] [place] [address] Dr. Doreen CarolinaP [Catalytic activity/Vol]138 U/LCritically rnwm40-752Wli [facility] HospitalComment on above:Performed By: #### CVDTBH #### [facility] [address] [address] [address] Doreen CarolinaT [Catalytic activity/Vol]42 U/XTngklq96-43Tnm [facility] HospitalComment on above:Performed By: #### CVDTBH #### [facility] [address] [address] [address] Doreen BetancourtAnion gap [Moles/Vol]11.0 mmol/LNormalThe [facility] Comment on above:Performed By: #### CVDTBH #### [facility] [address] [place] [address] Dr. Doreen BetancourtAST [Catalytic activity/Vol]36 U/EJbisyz21-49Mkf [facility] HospitalComment on above:Performed By: #### CVDTBH #### [facility] [address] [place] [address] Dr. Doreen BetancourtBilirubin [Mass/Vol]0.5 mg/dLNormal0.2-1.0[facility] Comment on above:Performed By: #### CVDTBH #### [facility] [address] [place] [address] Dr. Doreen BetancourtCalcium [Mass/Vol]9.6 mg/dLNormal8.5-10.1[facility] Comment on above:Performed By: #### CVDTBH #### [facility] [address] [place] [address] Dr. Doreen BetancourtChloride [Moles/Vol]104 mmol/WWbsadg59-190Dfx [facility] Comment on above:Performed By: #### CVDTBH #### [facility] [address] [place] [address] Dr. Doreen BetancourtCO2 [Moles/Vol]29.8 mmol/GDgfnoq68.0-32.0The [facility] Comment on above:Performed By: #### CVDTBH #### [facility] [address] [place] [address] Dr. Doreen BetancourtCreatinine [Mass/Vol]0.62 mg/dLNormal0.55-1.02The [facility] HospitalComment on above:Performed By: #### CVDTBH #### [facility] [address] [address] [address] Doreen GregoryGFR-AF EQUATORIAL GUINEAN>60Normal>=60The [facility] HospitalComment on above:Performed By: #### CVDTBH #### [facility] [address] [address] [address] Doreen GregoryGFR-NON AF EQUATORIAL GUINEAN>60Normal>=60The [facility] HospitalComment on above:Performed By: #### CVDTBH #### [facility] [address] [address] [address] Doreen BetancourtGlobulin (S) [Mass/Vol]3.4 g/dLNormalThe [facility] HospitalComment on above:Performed By: #### CVDTBH #### [facility] [address] [place] [address] Dr. Doreen BetancourtGlucose [Mass/Vol]115 mg/dLCritically vrdv24-768Shw [facility] HospitalComment on above:Performed By: #### CVDTBH #### [facility] [address] [place] [address] Dr. Doreen BetancourtPotassium [Moles/Vol]4.8 mmol/LNormal3.5-5.1[facility] Comment on above:Performed By: #### CVDTBH #### [facility] [address] [place] [address] Dr. Doreen BetancourtProtein [Mass/Vol]7.1 g/dLNormal6.4-8.2The [facility] Comment on above:Performed By: #### CVDTBH #### [facility] [address] [address] [address] Doreen BetancourtSodium [Moles/Vol]140 mmol/VGxjmry287-724Wel [facility] Comment on above:Performed By: #### CVDTBH #### [facility] [address] [address] [address] Doreen BetancourtUrea nitrogen [Mass/Vol]14.0 mg/dLNormal7.0-18.0The [facility] HospitalComment on above:Performed By: #### CVDTBH #### [facility] [address] [place] [address] Dr. Doreen BetancourtUrea nitrogen/Creatinine [Mass ratio]22.6 mg/mgNormalThe [facility] HospitalComment on above:Performed By: #### CVDTBH #### [facility] [address] [place] [address] Dr. Doreen Alcaraz B SURFACE ANTIGEN SCREENon 48-64-3078ZLgHf ScreenNegative NormalNegativeThe [facility] HospitalComment on above:Performed By: #### CVDTBH #### [facility] [address] [place] [address] Dr. Doreen Pinzon B SURFACE ANTIBODY, QUANTon [id number] B Surf AB Quant46.7 mIU/mLNormalImmunity>9.9[facility] on above: Result Comment: Status of Immunity Anti-HBs Level Inconsistent with Immunity 0.0 - 9.9 Consistent with Immunity >9.9Performed By: #### MG, CMP #### [facility] [address] [place] [address] Dr. Doreen Pinzon C ANTIBODYon 72-52-5396Dzd C Virus AbNon-ReactiveNormal Non ReactiveThe [facility] on above:Result Comment: HCV antibody alone does not differentiate between previously resolved infection and active infection. Equivocal and Reactive HCV antibody results should be followed up with an HCV RNA test to support the diagnosis of active HCV infection.Performed By: #### CVDTBH #### [facility] [address] [place] [address] Dr. Doreen BetancourtRPR QUANTon 41-90-7670Nclwd Plasma Reagin, QuantNon-Reactive NormalNonRea<1:1[facility] on above:Result Comment: Please Note: This test does not meet current guidelines for screening and diagnosis of syphilis. This test is intended for following treatment response in patients being treated for syphilis infection. To screen for syphilis infection, a reflex cascade that includes both RPR and a treponema-specific assay should be utilized, such as Treponema pallidum (Syphilis) Screening [place] (016246) or Rapid Plasma Reagin (RPR) Test With Reflex to Quantitative RPR and Confirmatory Treponema pallidum Antibodies (884377).Performed By: #### MG, CMP #### [facility] [address] [place] [address] Dr. Doreen Cherry 1/2 RAPID (EXPOSURE ONLY)on [id number] ABNon-Reactive NormalNON-REACTIVEJoint Township District Memorial HospitalComment on above:Performed By: #### MG, CMP #### [facility] [address] [place] [address] Dr. Doreen Cherry WSHzj-MocjjsnaHhuvydOUF-GFPJMOPAEzk Bellevue HospitalComment on above:Performed By: #### MG, CMP #### [facility] [address] [place] [address] Dr. Doreen BetancourtINTERNAL CONTROLSWithin Normal LimitsNormalWithin Normal Limits The [facility] HospitalComment on above:Performed By: #### MG, CMP #### [facility] [address] [place] [address] Dr. Doreen Artis HIV INFOSESt. Rita's HospitalComment on above:Result Comment: This test is used for the initial screening of the exposure source. Confirmation ofall reactive results will be obtained through reference lab testing.Performed By: #### MG, CMP #### [facility] [address] [place] [address] Dr. Doreen Keller AUTO DIFFon [id number] #0.0 103/ulNormal0.0-0.1[facility] on above:Performed By: #### MG, CMP #### [facility] [address] [place] [address] Dr. Doreen BetancourtBasophils/100 WBC (Bld)0.7 %Normal0.2-2.0[facility] Comment on above:Performed By: #### MG, CMP #### [facility] [address] [place] [address] Dr. Doreen Everett #0.0 103/ulNormal0.0-0.7The [facility] HospitalComment on above: Performed By: #### MG, CMP #### [facility] [address] [place] [address] Dr. Doreen Gregoryosinophils/100 WBC (Bld)0.7 %Critically low0.9-7.0The [facility] HospitalComment on above:Performed By: #### MG, CMP #### [facility] [address] [place] [address] Dr. Doreen Gregoryrythrocyte distribution width (RBC) [Ratio]18.2 %Critically high 11.0-15.0The [facility] HospitalComment on above:Performed By: #### MG, CMP #### [facility] [address] [place] [address] Dr. Doreen BetancourtHematocrit (Bld) [Volume fraction]37.8 %Pukoxf48.0-48.0The [facility] HospitalComment on above:Performed By: #### MG, CMP #### [facility] [address] [place] [address] Dr. Doreen BetancuortHemoglobin (Bld) [Mass/Vol]12.3 g/rLKgmcwk79.0-16.0The [facility] HospitalComment on above:Performed By: #### MG, CMP #### [facility] [address] [place] [address] Dr. Doreen Shepherd #0.01 10e3/ulNormal0.00-0.03The [facility] HospitalComment on above:Performed By: #### MG, CMP #### [facility] [address] [place] [address] Dr. Doreen Shepherd %0.3 %Normal0.0-0.5The [facility] on above: Performed By: #### MG, CMP #### [facility] [address] [place] [address] Dr. Doreen Kaiser #1.5 103/ulNormal1.2-3.8The [facility] HospitalComment on above:Performed By: #### MG, CMP #### [facility] [address] [place] [address] Dr. Doreen Nunezmphocytes/100 WBC (Bld)49.5 %Ahtvzk84.5-60.0The [facility] HospitalComment on above:Performed By: #### MG, CMP #### [facility] [address] [place] [address] Dr. Doreen Yusuf DIFF REQNONormalThe [facility] HospitalComment on above: Performed By: #### MG, CMP #### [facility] [address] [place] [address] Dr. Doreen Stearns (RBC) [Entitic mass]33.3 fvDzqekf45.7-34.0The [facility] HospitalComment on above:Performed By: #### MG, CMP #### [facility] [address] [place] [address] Dr. Doreen Stearns (RBC) [Mass/Vol]32.5 g/wNNrexmy48.9-35.2The [facility] HospitalComment on above:Performed By: #### MG, CMP #### [facility] [address] [place] [address] Dr. Doreen Alejo (RBC) [Entitic vol]102.4 fLCritically high81.0-99.0The [facility] HospitalComment on above:Performed By: #### MG, CMP #### [facility] [address] [place] [address] Dr. Doreen Cehema #0.5 103/ulNormal0.3-0.8The [facility] on above:Performed By: #### MG, CMP #### [facility] [address] [place] [address] Dr. Doreen Ruizocytes/100 WBC (Bld)14.7 %Critically high1.7-12.0The [facility] HospitalComment on above:Performed By: #### MG, CMP #### [facility] [address] [place] [address] Dr. Yilan ChangNEUT #1.1 103/ulCritically low1.4-6.5The [facility] HospitalComment on above:Performed By: #### MG, CMP #### [facility] [address] [place] [address] Dr. Doreen Wrenutrophils/100 WBC (Bld)34.1 %Critically low43.0-75.0The [facility] HospitalComment on above:Performed By: #### MG, CMP #### [facility] [address] [place] [address] Dr. Doreen BetancourtPlatelet mean volume (Bld) [Entitic vol]11.1 fLNormal9.5-13.5The [facility] HospitalComment on above:Performed By: #### MG, CMP #### [facility] [address] [place] [address] Dr. Doreen BetancourtPLT117 103/ulCritically fpi767-475Ttp [facility] HospitalComment on above:Performed By: #### MG, CMP #### [facility] [address] [place] [address] Dr. Doreen BetancourtRBC3.69 106/ulCritically low4.20-5.40The [facility] HospitalComment on above:Performed By: #### MG, CMP #### [facility] [address] [place] [address] Dr. Doreen BetancourtWBC3.1 103/ulCritically low4.0-11.0The [facility] HospitalComment on above:Performed By: #### MG, CMP #### [facility] [address] [place] [address] Dr. Doreen BetancourtMAGNESIUMon 88-31-0119Wqbfyfvft [Mass/Vol]2.0 mg/dLNormal1.8-2.4 The [facility] HospitalComment on above:Performed By: #### MG, CMP #### [facility] [address] [place] [address] Dr. Doreen BetancourtPROF 14(COMP METB)on [id number] [Mass/Vol]3.4 g/dLNormal 3.4-5.0The [facility] HospitalComment on above:Performed By: #### MG, CMP #### [facility] [address] [address] [address] Doreen BetancourtAlbumin/Globulin [Mass ratio]1.0 {ratio}NormalThe [facility] HospitalComment on above:Performed By: #### MG, CMP #### [facility] [address] [address] [address] Doreen Lopez [Catalytic activity/Vol]121 U/LCritically jgrj22-998Wdu [facility] HospitalComment on above:Performed By: #### MG, CMP #### [facility] [address] [address] [address] Doreen Friend [Catalytic activity/Vol]52 U/EJptgea77-84Lfb [facility] Hospitalment on above:Performed By: #### MG, CMP #### [facility] [address] [address] [address] Doreen Sharifon gap [Moles/Vol]11.5 mmol/LNormalThe [facility] Comment on above:Performed By: #### MG, CMP #### [facility] [address] [address] [address] [Catalytic activity/Vol]34 U/QPmeumj94-01K[facility] on above:Performed By: #### MG, CMP #### [facility] [address] [address] [address] Doreen BetancourtBilirubin [Mass/Vol]0.4 mg/dLNormal0.2-1.0The [facility] Comment on above:Performed By: #### MG, CMP #### [facility] [address] [address] [address] oDreen BetancourtCalcium [Mass/Vol]9.5 mg/dLNormal8.5-10.1The [facility] Comment on above:Performed By: #### MG, CMP #### [facility] [address] [address] [address] Doreen BetancourtChloride [Moles/Vol]106 mmol/RYqnrgl24-727Tdt [facility] Comment on above:Performed By: #### MG, CMP #### [facility] [address] [address] [address] Doreen BetancourtCO2 [Moles/Vol]28.6 mmol/XOdckfz47.0-32.0The [facility] Comment on above:Performed By: #### MG, CMP #### [facility] [address] [address] [address] Doreen BetancourtCreatinine [Mass/Vol]0.60 mg/dLNormal0.55-1.02[facility] HospitalComment on above:Performed By: #### MG, CMP #### [facility] [address] [place] [address] Dr. Doreen GregoryGFR-AF EQUATORIAL GUINEAN>60Normal>=60The [facility] HospitalComment on above:Performed By: #### MG, CMP #### [facility] [address] [place] [address] Dr. Doreen Jolley-NON AF EQUATORIAL GUINEAN>60Normal>=60The [facility] HospitalComment on above:Performed By: #### MG, CMP #### [facility] [address] [address] [address] Doreen BetancourtGlobulin (S) [Mass/Vol]3.5 g/dLNormalThe [facility] HospitalComment on above:Performed By: #### MG, CMP #### [facility] [address] [place] [address] Dr. Doreen BetancourtGlucose [Mass/Vol]95 mg/iSLhgvvj70-981QyhJoint [facility] District [facility] Hospital Comment on above:Performed By: #### MG, CMP #### [facility] [address] [place] [address] Dr. Doreen BetancourtPotassium [Moles/Vol]4.1 mmol/LNormal3.5-5.1The [facility] Comment on above:Performed By: #### MG, CMP #### [facility] [address] [place] [address] Dr. Doreen BetancourtProtein [Mass/Vol]6.9 g/dLNormal6.4-8.2[facility] Comment on above:Performed By: #### MG, CMP #### [facility] [address] [address] [address] Doreen Parkum [Moles/Vol]142 mmol/STqkprf456-666Nqf [facility] Comment on above:Performed By: #### MG, CMP #### [facility] [address] [place] [address] Dr. Doreen Copeland nitrogen [Mass/Vol]13.0 mg/dLNormal7.0-18.0The [facility] HospitalComment on above:Performed By: #### MG, CMP #### [facility] [address] [place] [address] Dr. Doreen Copeland nitrogen/Creatinine [Mass ratio]21.7 mg/mgNoTrinity Health System East CampusComment on above:Performed By: #### MG, CMP #### [facility] [address] [place] [address] Dr. Doreen Keller W MANUAL DIFFon [id number]bjsJsg [facility] HospitalComment on above:Performed By: #### MG, CMP #### [facility] [address] [place] [address] Dr. Doreen Grayson LYMPH #NormalJoint Township District Memorial HospitalComment on above: Performed By: #### MG, CMP #### [facility] [address] [place] [address] Dr. Doreen Grayson LYMPH %NormalThe [facility] HospitalComment on above: Performed By: #### MG, CMP #### [facility] [address] [place] [address] Dr. Doreen Walls #Normal0.0-0.3The [facility] HospitalComment on above: Performed By: #### MG, CMP #### [facility] [address] [place] [address] Dr. Doreen Walls %Normal0-5The [facility] HospitalComment on above:Performed By: #### MG, CMP #### [facility] [address] [place] [address] Dr. Doreen Constantino #0.00 103/ulNormal0.00-0.10The [facility] HospitalComment on above:Performed By: #### MG, CMP #### [facility] [address] [place] [address] Dr. Doreen Constantino %0.0 %Critically low0.2-2.0The [facility] HospitalComment on above:Performed By: #### MG, CMP #### [facility] [address] [place] [address] Dr. Doreen Skinner #NormalThe [facility] HospitalComment on above:Performed By: #### MG, CMP #### [facility] [address] [place] [address] Dr. Doreen Skinner %NormalThe [facility] HospitalComment on above:Performed By: #### MG, CMP #### [facility] [address] [place] [address] Dr. Doreen BetancourtCORRECTED WBCNormal4.0-11.0The [facility] HospitalComment on above: Performed By: #### MG, CMP #### [facility] [address] [place] [address] Dr. Doreen Cazares #0.00 103/ulNormal0.00-0.70The [facility] HospitalComment on above:Performed By: #### MG, CMP #### [facility] [address] [place] [address] Dr. Doreen Cazares%0.0 %Critically low0.9-7.0The [facility] HospitalComment on above:Performed By: #### MG, CMP #### [facility] [address] [place] [address] Dr. Doreen BetancourtHCT36.2 %Ajxpmk02.0-48.0The [facility] HospitalComment on above: Performed By: #### MG, CMP #### [facility] [address] [place] [address] Dr. Doreen BetancuortHGB12.1 g/jbAeqtxo39.0-16.0The [facility] HospitalComment on above: Performed By: #### MG, CMP #### [facility] [address] [address] [address] Doreen Fontaine #2.08 103/ulNormal1.20-3.80The [facility] HospitalComment on above:Performed By: #### MG, CMP #### [facility] [address] [address] [address] Doreen Fontaine%63.0 %Critically high20.5-60.0The [facility] HospitalComment on above:Performed By: #### MG, CMP #### [facility] [address] [address] [address] Doreen StearnsH33.0 zwHxnpsu81.7-34.0The [facility]Com[facility] on above: Performed By: #### MG, CMP #### [facility] [address] [address] [address] Doreen StearnsHC33.4 g/kqLscihw35.9-35.2The [facility] HospitalComment on above:Performed By: #### MG, CMP #### [facility] [address] [address] [address] Doreen StearnsV98.6 nJTcmbav65.0-99.0[facility] on above: Performed By: #### MG, CMP #### [facility] [address] [address] [address] Doreen MontalvoOCYTE #NormalThe [facility] on above: Performed By: #### MG, CMP #### [facility] [address] [address] [address] Doreen MontalvoOCYTE %NormalThe [facility] HospitalComment on above: Performed By: #### MG, CMP #### [facility] [address] [address] [address] Doreen Mishra#0.33 103/ulNormal0.30-0.80The [facility] HospitalComment on above:Performed By: #### MG, CMP #### [facility] [address] [address] [address] Doreen Mishra%10.0 %Normal1.7-12.0The [facility] HospitalComment on above: Performed By: #### MG, CMP #### [facility] [address] [place] [address] Dr. Doreen BetancourtMPV10.4 fLNormal9.5-13.5The [facility] HospitalComment on above: Performed By: #### MG, CMP #### [facility] [address] [place] [address] Dr. Doreen MccainOCYTE #NormalThe [facility] HospitalComment on above:Performed By: #### MG, CMP #### [facility] [address] [place] [address] Dr. Doreen Sousa %NormalThe [facility] HospitalComment on above:Performed By: #### MG, CMP #### [facility] [address] [place] [address] Dr. Doreen BetancourtNRBCNormalThe [facility] HospitalComment on above:Performed By: #### MG, CMP #### [facility] [address] [place] [address] Dr. Doreen DurantT92 103/ulCritically edf324-506Vcr [facility] HospitalComment on above:Performed By: #### MG, CMP #### [facility] [address] [place] [address] Dr. Doreen TavaresC3.67 106/ulCritically low4.20-5.40The [facility] HospitalComment on above:Performed By: #### MG, CMP #### [facility] [address] [place] [address] Dr. Doreen BetancourtRDW17.8 %Critically high11.0-15.0The [facility] HospitalComment on above:Performed By: #### MG, CMP #### [facility] [address] [place] [address] Dr. Doreen Knight #0.89 103/ulCritically low1.40-6.50The [facility] Comment on above:Performed By: #### MG, CMP #### [facility] [address] [place] [address] Dr. Doreen Knight %27.0 %Critically low43.0-75.0[facility] on above:Performed By: #### MG, CMP #### [facility] [address] [place] [address] Dr. Doreen BetancourtWBC3.3 103/ulCritically low4.0-11.0The [facility] HospitalComment on above:Performed By: #### MG, CMP #### [facility] [address] [place] [address] Dr. Doreen BetancourtMAGNESIUMon [id number] [Mass/Vol]2.1 mg/dLNormal1.8-2.4 The [facility]Com[facility] on above:Performed By: #### CBC #### [facility] [address] [place] [address] Dr. Doreen BetancourtPROF 14(COMP METB)on 18-36-6192Scvkyxg [Mass/Vol]3.5 g/dLNormal 3.4-5.0The [facility] Hospitalment on above:Performed By: #### CBC #### [facility] [address] [place] [address] Dr. Doreen BetancourtAlbumin/Globulin [Mass ratio]1.0 {ratio}NormalThe [facility] HospitalComup [facility] on above:Performed By: #### CBC #### [facility] [address] [place] [address] Dr. Doreen Lopez [Catalytic activity/Vol]131 U/LCritically mnhq40-326Cis [facility] HospitalComment on above:Performed By: #### CBC #### [facility] [address] [place] [address] Dr. Doreen Friend [Catalytic activity/Vol]98 U/LCritically ttfw91-97Bng [facility] Hospitalment on above:Performed By: #### CBC #### [facility] [address] [place] [address] Dr. Doreen Cifuentes gap [Moles/Vol]12.3 mmol/LNormalJoint [facility] Comment on above:Performed By: #### CBC #### [facility] [address] [address] [address] Doreen BetancourtAST [Catalytic activity/Vol]78 U/LCritically hvig45-09Lsr [facility] HospitalComment on above:Performed By: #### CBC #### [facility] [address] [address] [address] Doreen BetancourtBilirubin [Mass/Vol]0.3 mg/dLNormal0.2-1.0[facility] Comment on above:Performed By: #### CBC #### [facility] [address] [address] [address] Doreen BetancourtCalcium [Mass/Vol]9.3 mg/dLNormal8.5-10.1[facility] Comment on above:Performed By: #### CBC #### [facility] [address] [address] [address] Doreen BetancourtChloride [Moles/Vol]104 mmol/ECdmjil78-635Akk [facility] Comment on above:Performed By: #### CBC #### [facility] [address] [address] [address] Doreen BetancourtCO2 [Moles/Vol]29.4 mmol/GIsvacc64.0-32.0[facility] Comment on above:Performed By: #### CBC #### [facility] [address] [address] [address] Doreen BetancourtCreatinine [Mass/Vol]0.67 mg/dLNormal0.55-1.02The [facility] HospitalComment on above:Performed By: #### CBC #### [facility] [address] [address] [address] Doreen GregoryGFR-AF EQUATORIAL GUINEAN>60Normal>=60The [facility] HospitalComment on above:Performed By: #### CBC #### [facility] [address] [address] [address] Doreen GregoryGFR-NON AF EQUATORIAL GUINEAN>60Normal>=60The [facility] HospitalComment on above:Performed By: #### CBC #### [facility] [address] [address] [address] Doreen BetancourtGlobulin (S) [Mass/Vol]3.5 g/dLNormSt. Elizabeth HospitalComment on above:Performed By: #### CBC #### [facility] [address] [address] [address] Doreen BetancourtGlucose [Mass/Vol]100 mg/wGDuiqpb46-859Wlf [facility] Comment on above:Performed By: #### CBC #### [facility] [address] [address] [address] Doreen BetancourtPotassium [Moles/Vol]4.7 mmol/LNormal3.5-5.1The [facility] Comment on above:Performed By: #### CBC #### [facility] [address] [address] [address] Doreen BetancourtProtein [Mass/Vol]7.0 g/dLNormal6.4-8.2[facility] Comment on above:Performed By: #### CBC #### [facility] [address] [address] [address] Doreen BetancourtSodium [Moles/Vol]141 mmol/ICxnqso047-476YufJoint Township District Memorial Hospital Comment on above:Performed By: #### CBC #### [facility] [address] [address] [address] Doreen BetancourtUrea nitrogen [Mass/Vol]13.0 mg/dLNormal7.0-18.0[facility] on above:Performed By: #### CBC #### [facility] [address] [address] [address] Doreen BetancourtUrea nitrogen/Creatinine [Mass ratio]19.4 mg/mgNormalThOur Lady of [facility] AndersonComup health system on above:Performed By: #### CBC #### [facility] [address] [address] [address] Doreen BetancourtCBC AUTO DIFFon [id number] #0.0 103/ulNormal0.0-0.1[facility] Hospitalment on above:Performed By: #### MG, CMP #### [facility] [address] [place] [address] Dr. Doreen BetancourtBasophils/100 WBC (Bld)0.6 %Normal0.2-2.0The [facility] Comment on above:Performed By: #### MG, CMP #### [facility] [address] [place] [address] Dr. Doreen Everett #0.0 103/ulNormal0.0-0.7The [facility] HospitalComment on above: Performed By: #### MG, CMP #### [facility] [address] [place] [address] Dr. Doreen Gregoryosinophils/100 WBC (Bld)0.6 %Critically low0.9-7.0The [facility] HospitalComment on above:Performed By: #### MG, CMP #### [facility] [address] [place] [address] Dr. Doreen Gregoryrythrocyte distribution width (RBC) [Ratio]17.8 %Critically high 11.0-15.0The [facility] Hospitalment on above:Performed By: #### MG, CMP #### [facility] [address] [place] [address] Dr. Doreen BetancourtHematocrit (Bld) [Volume fraction]36.1 %Qzvnqp41.0-48.0The [facility] Hospitalment on above:Performed By: #### MG, CMP #### [facility] [address] [place] [address] Dr. Doreen BetancourtHemoglobin (Bld) [Mass/Vol]12.6 g/zMOgfvzo36.0-16.0The [facility] HospitalComment on above:Performed By: #### MG, CMP #### [facility] [address] [place] [address] Dr. Doreen BetancourtIG #0.01 10e3/ulNormal0.00-0.03The [facility] HospitalComment on above:Performed By: #### MG, CMP #### [facility] [address] [place] [address] Dr. Doreen Shepherd %0.3 %Normal0.0-0.5The [facility] HospitalComment on above: Performed By: #### MG, CMP #### [facility] [address] [place] [address] Dr. Doreen Kaiser #1.6 103/ulNormal1.2-3.8The [facility] HospitalComment on above:Performed By: #### MG, CMP #### [facility] [address] [place] [address] Dr. Doreen Camachohocytes/100 WBC (Bld)46.4 %Dvszga83.5-60.0The [facility] HospitalComment on above:Performed By: #### MG, CMP #### [facility] [address] [place] [address] Dr. Doreen DixonUAL DIFF REQNONormalThe [facility] HospitalComment on above: Performed By: #### MG, CMP #### [facility] [address] [place] [address] Dr. Doreen Stearns (RBC) [Entitic mass]32.1 jtVoraaj51.7-34.0The [facility] HospitalComment on above:Performed By: #### MG, CMP #### [facility] [address] [place] [address] Dr. Doreen Stearns (RBC) [Mass/Vol]34.9 g/uUHxuyii91.9-35.2The [facility]Com[facility] on above:Performed By: #### MG, CMP #### [facility] [address] [place] [address] Dr. Doreen Stearns (RBC) [Entitic vol]91.9 zDNfijhu09.0-99.0The [facility]Com[facility] on above:Performed By: #### MG, CMP #### [facility] [address] [place] [address] Dr. Doreen Cheema #0.3 103/ulNormal0.3-0.8The [facility] HospitalComment on above:Performed By: #### MG, CMP #### [facility] [address] [place] [address] Dr. Doreen Ruizocytes/100 WBC (Bld)9.7 %Normal1.7-12.0The [facility] Comment on above:Performed By: #### MG, CMP #### [facility] [address] [place] [address] Dr. Doreen WrenUT #1.5 103/ulNormal1.4-6.5The [facility] HospitalComment on above:Performed By: #### MG, CMP #### [facility] [address] [place] [address] Dr. Doreen Wrenutrophils/100 WBC (Bld)42.4 %Critically low43.0-75.0The [facility] HospitalComment on above:Performed By: #### MG, CMP #### [facility] [address] [place] [address] Dr. Doreen BetancourtPlatelet mean volume (Bld) [Entitic vol]11.1 fLNormal9.5-13.5The [facility] HospitalComment on above:Performed By: #### MG, CMP #### [facility] [address] [place] [address] Dr. Doreen BetancourtPLT101 103/ulCritically aqy509-228Ssb [facility] HospitalComment on above:Performed By: #### MG, CMP #### [facility] [address] [place] [address] Dr. Doreen BetancourtRBC3.93 106/ulCritically low4.20-5.40The [facility] HospitalComment on above:Performed By: #### MG, CMP #### [facility] [facility] [address] [place] [address] Dr. Doreen BetancourtWBC3.5 103/ulCritically low4.0-11.0The [facility] HospitalComment on above:Performed By: #### MG, CMP #### [facility] [address] [place] [address] Dr. Doreen BetancourtMAGNESIUMon 22-45-3154Ieqropdxq [Mass/Vol]2.0 mg/dLNormal1.8-2.4 The [facility] HospitalComment on above:Performed By: #### CMP, MG #### [facility] [address] [place] [address] Dr. Doreen Silva 14(COMP METB)on 56-40-0161Sruwxvy [Mass/Vol]3.6 g/dLNormal 3.4-5.0The [facility] HospitalComment on above:Performed By: #### CMP, MG #### [facility] [address] [place] [address] Dr. Doreen BetancourtAlbumin/Globulin [Mass ratio]1.0 {ratio}NormalThe [facility] HospitalComment on above:Performed By: #### CMP, MG #### [facility] [address] [place] [address] Dr. Doreen CarolinaP [Catalytic activity/Vol]120 U/LCritically pzey34-055Dba [facility] HospitalComment on above:Performed By: #### CMP, MG #### [facility] [address] [place] [address] Dr. Doreen Friend [Catalytic activity/Vol]80 U/LCritically rbck13-64Yba [facility] HospitalComment on above:Performed By: #### CMP, MG #### [facility] [address] [place] [address] Dr. Doreen Cifuentes gap [Moles/Vol]10.7 mmol/LNormalThe [facility] Comment on above:Performed By: #### CMP, MG #### [facility] [address] [place] [address] [Catalytic activity/Vol]62 U/LCritically kpop01-29Zdb [facility] HospitalComment on above:Performed By: #### CMP, MG #### [facility] [address] [place] [address] Dr. Doreen BetancourtBilirubin [Mass/Vol]0.4 mg/dLNormal0.2-1.0The [facility] Comment on above:Performed By: #### CMP, MG #### [facility] [address] [address] [address] Doreen BetancourtCalcium [Mass/Vol]9.6 mg/dLNormal8.5-10.1The [facility] Comment on above:Performed By: #### CMP, MG #### [facility] [address] [address] [address] Doreen BetancourtChloride [Moles/Vol]106 mmol/WPzlayl24-150Kho [facility] Comment on above:Performed By: #### CMP, MG #### [facility] [address] [place] [address] Dr. Doreen BetancourtCO2 [Moles/Vol]29.5 mmol/YAuqxso85.0-32.0The [facility] Comment on above:Performed By: #### CMP, MG #### [facility] [address] [place] [address] Dr. Doreen BetancourtCreatinine [Mass/Vol]0.67 mg/dLNormal0.55-1.02The [facility] HospitalComment on above:Performed By: #### CMP, MG #### [facility] [address] [place] [address] Dr. Doreen GregoryGFR-AF EQUATORIAL GUINEAN>60Normal>=60The [facility] HospitalComment on above:Performed By: #### CMP, MG #### [facility] [address] [address] [address] Doreen GregoryGFR-NON AF EQUATORIAL GUINEAN>60Normal>=60The [facility] HospitalComment on above:Performed By: #### CMP, MG #### [facility] [address] [place] [address] Dr. Doreen BetancourtGlobulin (S) [Mass/Vol]3.5 g/dLNormalThe [facility] HospitalComment on above:Performed By: #### CMP, MG #### [facility] [address] [place] [address] Dr. Doreen BetancourtGlucose [Mass/Vol]128 mg/dLCritically bivc07-360Mse [facility] HospitalComment on above:Performed By: #### CMP, MG #### [facility] [address] [address] [address] Doreen BetancourtPotassium [Moles/Vol]4.2 mmol/LNormal3.5-5.1The [facility] Comment on above:Performed By: #### CMP, MG #### [facility] [address] [place] [address] Dr. Doreen BetancourtProtein [Mass/Vol]7.1 g/dLNormal6.4-8.2The [facility] Comment on above:Performed By: #### CMP, MG #### [facility] [address] [address] [address] Doreen BetancourtSodium [Moles/Vol]142 mmol/ONchylo921-083Cjj [facility] Comment on above:Performed By: #### CMP, MG #### [facility] [address] [place] [address] Dr. Doreen BetancourtUrea nitrogen [Mass/Vol]12.0 mg/dLNormal7.0-18.0The [facility] HospitalComment on above:Performed By: #### CMP, MG #### [facility] [address] [place] [address] Dr. Doreen Copeland nitrogen/Creatinine [Mass ratio]17.9 mg/mgNormalThe [facility] HospitalComment on above:Performed By: #### CMP, MG #### [facility] [address] [place] [address] Dr. Doreen Cobian 27-85-2689AAN4.1 ng/mLCritically high0.0-4.7The [facility] HospitalComment on above:Result Comment: Nonsmokers <3.9 Smokers <5.6 . [employer] Electrochemiluminescence Immunoassay (ECLIA) . Values obtained with different assay methods or kits cannot be used interchangeably. Results cannot be interpreted as absolute evidence of the presence or absence of malignant disease.Performed By: #### CVDTBH #### [facility] [address] [place] [address] Dr. Doreen Keller AUTO DIFFon 68-19-6482BYXQ #0.0 103/ulNormal0.0-0.1The Dee HospitalComment on above:Performed By: #### CVDTBH #### [facility] [address] [address] [address] Doreen BetancourtBasophils/100 WBC (Bld)0.9 %Normal0.2-2.0The [facility] Comment on above:Performed By: #### CVDTBH #### [facility] [address] [place] [address] Dr. Doreen Everett #0.0 103/ulNormal0.0-0.7The [facility] HospitalComment on above: Performed By: #### CVDTBH #### [facility] [address] [place] [address] Dr. Doreen Gregoryosinophils/100 WBC (Bld)0.6 %Critically low0.9-7.0The [facility] HospitalComment on above:Performed By: #### CVDTBH #### [facility] [address] [place] [address] Dr. Doreen Gregoryrythrocyte distribution width (RBC) [Ratio]17.2 %Critically high 11.0-15.0The [facility] HospitalComment on above:Performed By: #### CVDTBH #### [facility] [address] [place] [address] Dr. Doreen BetancourtHematocrit (Bld) [Volume fraction]39.1 %Liablp98.0-48.0The [facility] HospitalComment on above:Performed By: #### CVDTBH #### [facility] [address] [place] [address] Dr. Doreen BetancourtHemoglobin (Bld) [Mass/Vol]13.0 g/dBCjhlpj10.0-16.0The [facility] HospitalComment on above:Performed By: #### CVDTBH #### [facility] [address] [place] [address] Dr. Doreen Shepherd #0.00 10e3/ulNormal0.00-0.03The [facility] HospitalComment on above:Performed By: #### CVDTBH #### [facility] [address] [place] [address] Dr. Doreen Shepherd %0.0 %Normal0.0-0.5The [facility] HospitalComment on above: Performed By: #### CVDTBH #### [facility] [address] [place] [address] Dr. Doreen Kaiser #2.0 103/ulNormal1.2-3.8The [facility] HospitalComment on above:Performed By: #### CVDTBH #### [facility] [address] [place] [address] Dr. Doreen Camachohocytes/100 WBC (Bld)42.1 %Zfhbte51.5-60.0The [facility] HospitalComment on above:Performed By: #### CVDTBH #### [facility] [address] [place] [address] Dr. Doreen DixonUAL DIFF REQNONormalThe [facility] HospitalComment on above: Performed By: #### CVDTBH #### [facility] [address] [place] [address] Dr. Doreen Stearns (RBC) [Entitic mass]31.1 qhWmiily97.7-34.0The [facility] HospitalComment on above:Performed By: #### CVDTBH #### [facility] [address] [place] [address] Dr. Doreen Stearns (RBC) [Mass/Vol]33.2 g/sAQjvhjr72.9-35.2The [facility] HospitalComment on above:Performed By: #### CVDTBH #### [facility] [address] [place] [address] Dr. Doreen Stearns (RBC) [Entitic vol]93.5 iKLpsarw86.0-99.0The [facility] HospitalComment on above:Performed By: #### CVDTBH #### [facility] [address] [place] [address] Dr. Doreen Cheema #0.6 103/ulNormal0.3-0.8The [facility] HospitalComment on above:Performed By: #### CVDTBH #### [facility] [address] [place] [address] Dr. Doreen BetancourtMonocytes/100 WBC (Bld)13.5 %Critically high1.7-12.0The [facility] HospitalComment on above:Performed By: #### CVDTBH #### [facility] [address] [place] [address] Dr. Doreen WrenUT #2.0 103/ulNormal1.4-6.5The [facility] HospitalComment on above:Performed By: #### CVDTBH #### [facility] [address] [place] [address] Dr. Doreen Wrenutrophils/100 WBC (Bld)42.9 %Critically low43.0-75.0The [facility] HospitalComment on above:Performed By: #### CVDTBH #### [facility] [address] [place] [address] Dr. Doreen BetancourtPlatelet mean volume (Bld) [Entitic vol]10.2 fLNormal9.5-13.5The [facility] HospitalComment on above:Performed By: #### CVDTBH #### [facility] [address] [place] [address] Dr. Doreen BetancourtPLT143 103/ulCritically pis811-031Mvx [facility] HospitalComment on above:Performed By: #### CVDTBH #### [facility] [address] [place] [address] Dr. Doreen BetancourtRBC4.18 106/ulCritically low4.20-5.40The [facility] HospitalComment on above:Performed By: #### CVDTBH #### [facility] [address] [place] [address] Dr. Doreen BetancourtWBC4.7 103/ulNormal4.0-11.0The [facility] HospitalComment on above: Performed By: #### CVDTBH #### [facility] [address] [place] [address] Dr. Doreen BetancourtMAGNESIUMon 19-81-4161Qvwvwllpm [Mass/Vol]2.2 mg/dLNormal1.8-2.4 The [facility] HospitalComment on above:Performed By: #### MG, CMP #### [facility] [address] [place] [address] Dr. Doreen Silva 14(COMP METB)on 33-18-1178Cqxnkab [Mass/Vol]3.8 g/dLNormal 3.4-5.0The [facility] HospitalComment on above:Performed By: #### CBC #### [facility] [address] [place] [address] Dr. Doreen BetancourtAlbumin/Globulin [Mass ratio]1.0 {ratio}NormalThe [facility] HospitalComment on above:Performed By: #### CBC #### [facility] [address] [place] [address] Dr. Doreen CarolinaP [Catalytic activity/Vol]118 U/LCritically bwjx57-566Qyv [facility] HospitalComment on above:Performed By: #### CBC #### [facility] [address] [place] [address] Dr. Doreen Friend [Catalytic activity/Vol]57 U/IKydfcc14-25Hlc [facility] HospitalComment on above:Performed By: #### CBC #### [facility] [address] [place] [address] Dr. Doreen Cifuentes gap [Moles/Vol]13.4 mmol/LNormalThe [facility] Comment on above:Performed By: #### CBC #### [facility] [address] [place] [address] Dr. Doreen BetancourtAST [Catalytic activity/Vol]40 U/LCritically ctpt11-82Zya [facility] HospitalComment on above:Performed By: #### CBC #### [facility] [address] [place] [address] Dr. Doreen BetancourtBilirubin [Mass/Vol]0.4 mg/dLNormal0.2-1.0The [facility] Comment on above:Performed By: #### CBC #### [facility] [address] [place] [address] Dr. Doreen BetancourtCalcium [Mass/Vol]9.7 mg/dLNormal8.5-10.1The [facility] Comment on above:Performed By: #### CBC #### [facility] [address] [address] [address] Doreen BetancourtChloride [Moles/Vol]103 mmol/BTeofnw05-742Vqe [facility] Comment on above:Performed By: #### CBC #### [facility] [address] [address] [address] Doreen BetancourtCO2 [Moles/Vol]29.1 mmol/FQbnjcu62.0-32.0The [facility] Comment on above:Performed By: #### CBC #### [facility] [address] [place] [address] Dr. Doreen BetancourtCreatinine [Mass/Vol]0.71 mg/dLNormal0.55-1.02The [facility] HospitalComment on above:Performed By: #### CBC #### [facility] [address] [place] [address] Dr. Doreen GregoryGFR-AF EQUATORIAL GUINEAN>60Normal>=60The [facility] HospitalComment on above:Performed By: #### CBC #### [facility] [address] [place] [address] Dr. Doreen GregoryGFR-NON AF EQUATORIAL GUINEAN>60Normal>=60The [facility] HospitalComment on above:Performed By: #### CBC #### [facility] [address] [address] [address] Doreen BetancourtGlobulin (S) [Mass/Vol]3.7 g/dLNormalThe [facility] HospitalComment on above:Performed By: #### CBC #### [facility] [address] [place] [address] Dr. Doreen BetancourtGlucose [Mass/Vol]106 mg/tMAixrya35-161Vgy [facility] Comment on above:Performed By: #### CBC #### [facility] [address] [address] [address] Doreen BetancourtPotassium [Moles/Vol]4.5 mmol/LNormal3.5-5.1The [facility] Comment on above:Performed By: #### CBC #### [facility] [address] [address] [address] Doreen BetancourtProtein [Mass/Vol]7.5 g/dLNormal6.4-8.2[facility] Comment on above:Performed By: #### CBC #### [facility] [address] [address] [address] Doreen BetancourtSodium [Moles/Vol]141 mmol/HSyynzu990-845Wap [facility] Comment on above:Performed By: #### CBC #### [facility] [address] [address] [address] Doreen BetancourtUrea nitrogen [Mass/Vol]15.0 mg/dLNormal7.0-18.0[facility] HospitalComment on above:Performed By: #### CBC #### [facility] [address] [place] [address] Dr. Doreen Copeland nitrogen/Creatinine [Mass ratio]21.1 mg/mgNormalThe [facility] HospitalComment on above:Performed By: #### CBC #### [facility] [address] [place] [address] Dr. Doreen BetancourtAlbumin [Mass/volume] in Serum or PlasmaOrdered By: Isaías Jordan on 16-11-3303Uszxoli [Mass/Vol]3.8 g/dL3.2-5.5FProMedica Toledo HospitalCreatinine and Glomerular filtration rate.predicted panel (S/P/Bld)Ordered By: Isaías Jordan on 84-27-4662Czjjbsnbou [Mass/Vol]0.64 mg/dL0.44-1.03[facility] TrumbullEstimated glomerular filtration rate (GFR) non- AmericanOrdered By: Isaías Jordan on 07-11-2022 GFR/1.73 sq M.predicted among non-blacks MDRD (S/P/Bld) [Vol rate/Area]> 60 mL/MinSelect Medical Specialty Hospital - TrumbullGFR/1.73 sq M.predicted among non-blacks MDRD (S/P/Bld) [Vol rate/Area]Estimated glomerular filtration rate (GFR) non- AmericanSelect Medical Specialty Hospital - TrumbullGlobulin Calc (S) [Mass/Vol] Ordered By: Isaías Jordan on 45-17-0785Clkcgwcn (S) [Mass/Vol]2.8 g/dL [facility]umbullLaboratory - Chemistry and Chemistry - challengeOrdered By: Isaías Jordan on 50-38-9793Wddphixxr [Mass/Vol]2.2 mg/dL1.6-2.6FProMedica Toledo HospitalNo Panel InformationOrdered By: Isaías Jordan on 37-24-3451Hwndhcdus GFR ()> 60 mL/Min [facility] - TrumbullComment on above:GFR estimated reference range: According to KDOQI guidelines, <60 ml/min/1.73m2 is sufficient todiagnose a patient with chronic kidney disease.Pharmacy Creatinine Clearance (Chem97.34 [facility] - TrumbullProtein [Mass/volume] in Serum or PlasmaOrdered By: Isaías Jordan on 67-68-0598Gefcgrx [Mass/Vol]6.6 g/dL6.1-7.9[facility] Medical Centererum or plasma alanine aminotransferase measurement without P-5'-P (enzymatic activiOrdered By: Isaías Jordan on 68-42-9062GTH No additional P-5'-P [Catalytic activity/Vol]71 U/R06-70RldjpojmxUniversity Hospitals St. John Medical Centererum or plasma albumin/globulin mass ratioOrdered By: Isaías Jordan on 75-19-0663Xpfteum/Globulin [Mass ratio]1.4 {ratio}[facility] John Medical Centererum or plasma alkaline phosphatase measurement (enzymatic activity/volume)Ordered By: Isaías Jordan on 20-63-7087KJI [Catalytic activity/Vol]72 U/I92-78MnzwzsefxUniversity Hospitals St. John Medical Centererum or plasma anion gap determinationOrdered By: Isaías Jordan on 25-15-3805Fysoc gap [Moles/Vol]9.7 mmol/L6.0-15.0[facility] Medical Centererum or plasma aspartate aminotransferase measurement (enzymatic activity/volume)Ordered By: Isaías Jordan on 50-68-0656QDJ [Catalytic activity/Vol]56 U/L10-[address] [facility] Medical Centererum or plasma calcium measurement (mass/volume)Ordered By: Isaías Jordan on 69-09-6649Vbnbxqm [Mass/Vol]9.1 mg/dL8.2-10.2FSelect Medical Cleveland Clinic Rehabilitation Hospital, Beachwooderum or plasma chloride measurement (moles/volume)Ordered By: Isaías Jordan on 11-40-9607Zvdzttan [Moles/Vol]103 mmol/U91-487PwpoyvbjoUniversity Hospitals St. John Medical Centererum or plasma glucose measurement (mass/volume)Ordered By: Isaías Jordan on 07-11-2022 Glucose [Mass/Vol]81 mg/vV01-734YprlvcwmxSelect Medical Specialty Hospital - TrumbullComment on above:ADA recommended reference rangeRandom Glucose Reference Range is dependent on time and content of last meal. Glucose of more than 200 mg/dL in a nonstressed, ambulatory subject supports the diagnosisof Diabetes Mellitus.Serum or plasma potassium measurement (moles/volume)Ordered By: Isaías Jordan on 70-79-2535Pbpyoatxs [Moles/Vol]4.1 mmol/L3.5-5.1FSelect Medical Cleveland Clinic Rehabilitation Hospital, Beachwooderum or plasma sodium measurement (moles/volume)Ordered By: Isaías Jordan on 32-89-6288Dmkxex [Moles/Vol]134 mmol/W600-159IkxhfwhwcUniversity Hospitals St. John Medical Centererum or plasma total bilirubin measurement (mass/volume)Ordered By: Isaías Jordan on 75-34-9174Snzfwcaaw [Mass/Vol]0.8 mg/dL0.3-1.2FSelect Medical Cleveland Clinic Rehabilitation Hospital, Beachwooderum or plasma total carbon dioxide measurement (moles/volume)Ordered By: Isaías Jordan on 66-70-1223PH5 [Moles/Vol]25.4 mmol/L22.0-30.0[facility] Medical Centererum or plasma urea nitrogen measurement (mass/volume)Ordered By: Isaías Jordan on 54-92-3242Muoj nitrogen [Mass/Vol]14 mg/dL9-23[facility] - TrumbullAlbumin [Mass/volume] in Serum or PlasmaOrdered By: Isaías Jordan on 07-06-2022 Albumin [Mass/Vol]4.2 g/dL3.2-5.5FProMedica Toledo HospitalCBC AUTO DIFF on 27-26-0950YZWC #0.0 103/ulNormal0.0-0.1The [facility] HospitalComment on above: Performed By: #### MG, CMP #### [facility] [address] [place] [address] Dr. Doreen BetancourtBasophils/100 WBC (Bld)0.7 %Normal0.2-2.0The [facility] Comment on above:Performed By: #### MG, CMP #### [facility] [address] [address] [address] Doreen Everett #0.1 103/ulNormal0.0-0.7The [facility] HospitalComment on above: Performed By: #### MG, CMP #### [facility] [address] [place] [address] Dr. Doreen Gregoryosinophils/100 WBC (Bld)1.1 %Normal0.9-7.0[facility] Comment on above:Performed By: #### MG, CMP #### [facility] [address] [place] [address] Dr. Doreen Gregoryrythrocyte distribution width (RBC) [Ratio]16.9 %Critically high 11.0-15.0The [facility] HospitalComment on above:Performed By: #### MG, CMP #### [facility] [address] [place] [address] Dr. Doreen BetancourtHematocrit (Bld) [Volume fraction]38.9 %Ytlcyl84.0-48.0The [facility] HospitalComment on above:Performed By: #### MG, CMP #### [facility] [address] [place] [address] Dr. Doreen BetancourtHemoglobin (Bld) [Mass/Vol]14.2 g/mHXkbasy96.0-16.0The [facility] HospitalComment on above:Performed By: #### MG, CMP #### [facility] [address] [place] [address] Dr. Doreen Shepherd #0.01 10e3/ulNormal0.00-0.03The [facility] HospitalComment on above:Performed By: #### MG, CMP #### [facility] [address] [place] [address] Dr. Doreen Shepherd %0.2 %Normal0.0-0.5The [facility] HospitalComment on above: Performed By: #### MG, CMP #### [facility] [address] [place] [address] Dr. Doreen Kaiser #2.0 103/ulNormal1.2-3.8The [facility] HospitalComment on above:Performed By: #### MG, CMP #### [facility] [address] [place] [address] Dr. Doreen Camachohocytes/100 WBC (Bld)43.2 %Udsewg01.5-60.0The [facility] HospitalComment on above:Performed By: #### MG, CMP #### [facility] [address] [place] [address] Dr. Doreen Yusuf DIFF REQNONormalThe [facility] HospitalComment on above: Performed By: #### MG, CMP #### [facility] [address] [place] [address] Dr. Doreen Tapia (RBC) [Entitic mass]34.5 pgCritically high26.7-34.0The [facility] HospitalComment on above:Performed By: #### MG, CMP #### [facility] [address] [place] [address] Dr. Doreen Stearns (RBC) [Mass/Vol]36.5 g/dLCritically high29.9-35.2The [facility] HospitalComment on above:Performed By: #### MG, CMP #### [facility] [address] [place] [address] Dr. Doreen Alejo (RBC) [Entitic vol]94.6 hRLgumsg96.0-99.0The [facility] HospitalComment on above:Performed By: #### MG, CMP #### [facility] [address] [place] [address] Dr. Doreen Cheema #0.4 103/ulNormal0.3-0.8The [facility] HospitalComment on above:Performed By: #### MG, CMP #### [facility] [address] [place] [address] Dr. Doreen Ruizocytes/100 WBC (Bld)9.6 %Normal1.7-12.0[facility] Comment on above:Performed By: #### MG, CMP #### [facility] [address] [place] [address] Dr. Doreen Brar #2.1 103/ulNormal1.4-6.5The [facility] HospitalComment on above:Performed By: #### MG, CMP #### [facility] [address] [place] [address] Dr. Doreen Wrenutrophils/100 WBC (Bld)45.2 %Wztbce90.0-75.0The [facility] HospitalComment on above:Performed By: #### MG, CMP #### [facility] [address] [place] [address] Dr. Doreen Basilio mean volume (Bld) [Entitic vol]9.8 fLNormal9.5-13.5The [facility] HospitalComment on above:Performed By: #### MG, CMP #### [facility] [address] [place] [address] Dr. Doreen BetancourtPLT155 103/tpLdwnkx312-320Xzb [facility] HospitalComment on above: Performed By: #### MG, CMP #### [facility] [address] [place] [address] Dr. Doreen BetancourtRBC4.11 106/ulCritically low4.20-5.40The [facility] HospitalComment on above:Performed By: #### MG, CMP #### [facility] [address] [place] [address] Dr. Doreen BetancourtWBC4.6 103/ulNormal4.0-11.0The [facility] HospitalComment on above: Performed By: #### MG, CMP #### [facility] [address] [address] [address] Doreen BetancourtCreatinine and Glomerular filtration rate.predicted panel (S/P/Bld)Ordered By: Isaías Jordan on 58-73-1861Fzcmaxlqsq [Mass/Vol]0.43 mg/dL0.44-1.03[facility] TrumbullEstimated glomerular filtration rate (GFR) non- AmericanOrdered By: Isaías Jordan on 07-06-2022 GFR/1.73 sq M.predicted among non-blacks MDRD (S/P/Bld) [Vol rate/Area]> 60 mL/MinSelect Medical Specialty Hospital - TrumbullGlobulin Calc (S) [Mass/Vol]Ordered By: Isaías Jordan on 88-90-7354Secrjeqv (S) [Mass/Vol]2.6 g/dLSelect Medical Specialty Hospital - TrumbullLaboratory - Chemistry and Chemistry - challengeOrdered By: Isaías Jordan on 18-64-2187Zvgkpuzwp [Mass/Vol]2.8 mg/dL1.6-2.6FProMedica Toledo HospitalMAGNESIUMon 29-52-3158Axyxgavfr [Mass/Vol]2.0 mg/dLNormal 1.8-2.4The [facility] HospitalComment on above:Performed By: #### CBC #### [facility] [address] [address] [address] Doreen Posada Panel InformationOrdered By: Isaías Jordan on 07-06-2022 Estimated GFR ()> 60 mL/MinSelect Medical Specialty Hospital - Trumbull Comment on above:GFR estimated reference range: According to KDOQI guidelines, <60 ml/min/1.73m2 is sufficient todiagnose a patient with chronic kidney disease.Pharmacy Creatinine Clearance (ChemN/[facility] PROF 14(COMP METB)on 33-80-8856Gyvpvdi [Mass/Vol]4.2 g/dLNormal3.4-5.0The [facility] HospitalComment on above:Result Comment: preformed at [facility]; ultrafuged specimenPerformed By: #### CBC #### [facility] [address] [address] [address] Doreen BetancourtAlbumin/Globulin [Mass ratio]1.6 {ratio}NormalThe [facility] HospitalComment on above:Performed By: #### CBC #### [facility] [address] [address] [address] Doreen CarolinaP [Catalytic activity/Vol]102 U/KZbtptv52-337Aym [facility] HospitalComment on above:Result Comment: preformed at [facility]; ultrafuged specimen Performed By: #### CBC #### [facility] [address] [address] [address] Doreen Friend [Catalytic activity/Vol]38 U/EDrmzyb78-61Hwy [facility] HospitalComment on above:Result Comment: preformed at [facility]; ultrafuged specimen Performed By: #### CBC #### [facility] [address] [place] [address] Dr. Doreen Sharifon gap [Moles/Vol]11.9 mmol/LNormalThe [facility] Comment on above:Performed By: #### CBC #### [facility] [address] [place] [address] Dr. Doreen BetancourtAST [Catalytic activity/Vol]49 U/LCritically ecsh26-53Qrs [facility] HospitalComment on above:Result Comment: preformed at [facility]; ultrafuged specimenPerformed By: #### CBC #### [facility] [address] [place] [address] Dr. Doreen BetancourtBilirubin [Mass/Vol]0.7 mg/dLNormal0.2-1.0The [facility] Comment on above:Result Comment: preformed at [facility]; ultrafuged specimenPerformed By: #### CBC #### [facility] [address] [place] [address] Dr. Doreen BetancourtCalcium [Mass/Vol]9.5 mg/dLNormal8.5-10.1The [facility] Comment on above:Result Comment: preformed at [facility]; ultrafuged specimenPerformed By: #### CBC #### [facility] [address] [place] [address] Dr. Doreen BetancourtChloride [Moles/Vol]101 mmol/EHuzuoq57-123Hcr [facility] Comment on above:Result Comment: preformed at [facility]; ultrafuged specimenPerformed By: #### CBC #### [facility] [address] [address] [address] Doreen BetancourtCO2 [Moles/Vol]25.4 mmol/LLinddp86.0-32.0The [facility] Comment on above:Result Comment: preformed at [facility]; ultrafuged specimenPerformed By: #### CBC #### [facility] [address] [address] [address] Doreen BetancourtCreatinine [Mass/Vol]0.43 mg/dLCritically low0.55-1.02The [facility] HospitalComment on above:Result Comment: preformed at [facility]; ultrafuged specimenPerformed By: #### CBC #### [facility] [address] [place] [address] Dr. Doreen GregoryGFR-AF EQUATORIAL GUINEAN>60Normal>=60The [facility] HospitalComment on above:Performed By: #### CBC #### [facility] [address] [place] [address] Dr. Doreen GregoryGFR-NON AF EQUATORIAL GUINEAN>60Normal>=60[facility] HospitalComment on above:Performed By: #### CBC #### [facility] [address] [place] [address] Dr. Doreen BetancourtGlobulin (S) [Mass/Vol]2.6 g/dLNormalThe [facility] HospitalComment on above:Performed By: #### CBC #### [facility] [address] [address] [address] Doreen BetancourtGlucose [Mass/Vol]102 mg/fKPvhbgo51-916Yon [facility] Comment on above:Result Comment: preformed at [facility]; ultrafuged specimenPerformed By: #### CBC #### [facility] [address] [place] [address] Dr. Doreen BetancourtPotassium [Moles/Vol]5.3 mmol/LCritically high3.5-5.1The [facility] HospitalComment on above:Result Comment: preformed at [facility]; ultrafuged specimen Performed By: #### CBC #### [facility] [address] [address] [address] Doreen BetancourtProtein [Mass/Vol]6.8 g/dLNormal6.4-8.2The [facility] Comment on above:Result Comment: preformed at [facility]; ultrafuged specimenPerformed By: #### CBC #### [facility] [address] [place] [address] Dr. Doreen BetancourtSodium [Moles/Vol]133 mmol/LCritically zws828-630Tur [facility] HospitalComment on above:Result Comment: preformed at [facility]; ultrafuged specimen Performed By: #### CBC #### [facility] [address] [place] [address] Dr. Doreen BetancourtUrea nitrogen [Mass/Vol]18.0 mg/dLNormal7.0-18.0The [facility] HospitalComment on above:Result Comment: preformed at [facility]; ultrafuged specimen Performed By: #### CBC #### [facility] [address] [place] [address] Dr. Doreen BetancourtUrea nitrogen/Creatinine [Mass ratio]41.6 mg/mgNormalThe [facility] HospitalComment on above:Performed By: #### CBC #### [facility] [address] [place] [address] Dr. Doreen BetancourtProtein [Mass/volume] in Serum or PlasmaOrdered By: Isaías Jordan on 35-85-8748Fjsczzx [Mass/Vol]6.8 g/dL6.1-7.9[facility] Medical Centererum or plasma alanine aminotransferase measurement without P-5'-P (enzymatic activiOrdered By: Isaías Jordan on 18-30-0232VHQ No additional P-5'-P [Catalytic activity/Vol]38 U/E45-60FytbupwrcUniversity Hospitals St. John Medical Centererum or plasma albumin/globulin mass ratioOrdered By: Isaías Jordan on 35-46-8087Puatdpv/Globulin [Mass ratio]1.6 {ratio}[facility] Medical Centererum or plasma alkaline phosphatase measurement (enzymatic activity/volume)Ordered By: Isaías Jordan on 23-00-6728KWU [Catalytic activity/Vol]102 U/M21-52XziaxwlayUniversity Hospitals St. John Medical Centererum or plasma anion gap determinationOrdered By: Isaías Jordan on 81-45-9393Gvxxj gap [Moles/Vol]11.9 mmol/L6.0-15.0[facility] Medical Centererum or plasma aspartate aminotransferase measurement (enzymatic activity/volume)Ordered By: Isaías Jordan on 98-80-4286NMG [Catalytic activity/Vol]49 U/H27-05NgeqweatkUniversity Hospitals St. John Medical Centererum or plasma calcium measurement (mass/volume)Ordered By: Isaías Jordan on 21-80-3333Vbwknmg [Mass/Vol]9.5 mg/dL8.2-10.2FSelect Medical Cleveland Clinic Rehabilitation Hospital, Beachwooderum or plasma chloride measurement (moles/volume) Ordered By: Isaías Jordan on 54-41-7093Sstucxhc [Moles/Vol]101 mmol/L95-[address] [facility] Medical Centererum or plasma glucose measurement (mass/volume)Ordered By: Isaías Jordan on 01-48-1320Jnmdnno [Mass/Vol]102 mg/iH55-388AwyzswzmoSelect Medical Specialty Hospital - TrumbullComment on above:ADA recommended reference rangeRandom Glucose Reference Range is dependent on time and content of last meal. Glucose of more than 200 mg/dL in a nonstressed, ambulatory subject supports the diagnosisof Diabetes Mellitus.Serum or plasma potassium measurement (moles/volume)Ordered By: Isaías Jordan on 33-34-0715Pznzfrzun [Moles/Vol]5.3 mmol/L3.5-5.1FSelect Medical Cleveland Clinic Rehabilitation Hospital, Beachwooderum or plasma sodium measurement (moles/volume)Ordered By: Isaías Jordan on 07-06-2022 Sodium [Moles/Vol]133 mmol/K452-328TlaaxdespUniversity Hospitals St. John Medical Centererum or plasma total bilirubin measurement (mass/volume)Ordered By: Isaías Jordan on 74-95-4845Plbdtfvvj [Mass/Vol]0.7 mg/dL0.3-1.2FProMedica Toledo Hospital Serum or plasma total carbon dioxide measurement (moles/volume)Ordered By: Isaías Jordan on 71-44-0690FF9 [Moles/Vol]25.4 mmol/L22.0-30.0[facility] Medical Centererum or plasma urea nitrogen measurement (mass/volume) Ordered By: Isaías Jordan on 08-28-8329Fbyb nitrogen [Mass/Vol]18 mg/dL9-23 [facility] - TrumbullCBC AUTO DIFFon 07-90-5384MOMS #0.0 103/ul Normal0.0-0.1The [facility] HospitalComment on above:Performed By: #### CBC #### [facility] [address] [address] [address] Doreen BetancourtBasophils/100 WBC (Bld)0.5 %Normal0.2-2.0The [facility] Comment on above:Performed By: #### CBC #### [facility] [address] [address] [address] Doreen Everett #0.1 103/ulNormal0.0-0.7The [facility] HospitalComment on above: Performed By: #### CBC #### [facility] [address] [address] [address] Doreen Gregoryosinophils/100 WBC (Bld)1.3 %Normal0.9-7.0The [facility] Comment on above:Performed By: #### CBC #### [facility] [address] [address] [address] Doreen Gregoryrythrocyte distribution width (RBC) [Ratio]15.3 %Critically high 11.0-15.0The [facility] HospitalComment on above:Performed By: #### CBC #### [facility] [address] [address] [address] Doreen BetancourtHematocrit (Bld) [Volume fraction]38.7 %Zwbxoh14.0-48.0The [facility] HospitalComment on above:Performed By: #### CBC #### [facility] [address] [address] [address] Doreen BetancourtHemoglobin (Bld) [Mass/Vol]12.5 g/iCAudddk10.0-16.0The [facility] HospitalComment on above:Performed By: #### CBC #### [facility] [address] [place] [address] Dr. Doreen Shepherd #0.01 10e3/ulNormal0.00-0.03The [facility] HospitalComment on above:Performed By: #### CBC #### [facility] [address] [place] [address] Dr. Doreen Shepherd %0.3 %Normal0.0-0.5The [facility] HospitalComment on above: Performed By: #### CBC #### [facility] [address] [place] [address] Dr. Doreen Kaiser #1.8 103/ulNormal1.2-3.8The [facility] HospitalComment on above:Performed By: #### CBC #### [facility] [address] [place] [address] Dr. Doreen Camachohocytes/100 WBC (Bld)46.0 %Odoxjo91.5-60.0The [facility] HospitalComup health system on above:Performed By: #### CBC #### [facility] [address] [place] [address] Dr. Doreen DixonUAL DIFF REQNONormalThe [facility] HospitalComment on above: Performed By: #### CBC #### [facility] [address] [place] [address] Dr. Doreen Stearns (RBC) [Entitic mass]30.0 xpXzxqcd10.7-34.0The [facility] HospitalComment on above:Performed By: #### CBC #### [facility] [address] [place] [address] Dr. Doreen Stearns (RBC) [Mass/Vol]32.3 g/mSXpzbyx14.9-35.2The [facility] HospitalComup health system on above:Performed By: #### CBC #### [facility] [address] [place] [address] Dr. Doreen Stearns (RBC) [Entitic vol]93.0 zEDvwhvv62.0-99.0The [facility] HospitalComment on above:Performed By: #### CBC #### [facility] [address] [place] [address] Dr. Doreen Cheema #0.4 103/ulNormal0.3-0.8The [facility] HospitalComment on above:Performed By: #### CBC #### [facility] [address] [place] [address] Dr. Doreen Ruizocytes/100 WBC (Bld)9.5 %Normal1.7-12.0The [facility] Comment on above:Performed By: #### CBC #### [facility] [address] [place] [address] Dr. Doreen Brar #1.7 103/ulNormal1.4-6.5The [facility] HospitalComment on above:Performed By: #### CBC #### [facility] [address] [place] [address] Dr. Doreen Wrenutrophils/100 WBC (Bld)42.4 %Critically low43.0-75.0The [facility] HospitalComment on above:Performed By: #### CBC #### [facility] [address] [place] [address] Dr. Doreen Basilio mean volume (Bld) [Entitic vol]9.9 fLNormal9.5-13.5The [facility] HospitalComment on above:Performed By: #### CBC #### [facility] [address] [place] [address] Dr. Doreen BetancourtPLT178 103/toCvikrg513-177Cac [facility] HospitalComment on above: Performed By: #### CBC #### [facility] [address] [place] [address] Dr. Doreen BetancourtRBC4.16 106/ulCritically low4.20-5.40The [facility] HospitalComment on above:Performed By: #### CBC #### [facility] [address] [place] [address] Dr. Doreen BetancourtWBC4.0 103/ulNormal4.0-11.0The [facility] HospitalComment on above: Performed By: #### CBC #### [facility] [address] [place] [address] Dr. Doreen BetancourtMAGNESIUMon 42-86-8652Ofszodhcc [Mass/Vol]1.9 mg/dLNormal1.8-2.4 The [facility] HospitalComment on above:Performed By: #### MG, CMP #### [facility] [address] [place] [address] Dr. Doreen BetancourtPROF 14(COMP METB)on 53-18-3772Cyuoeug [Mass/Vol]3.7 g/dLNormal 3.4-5.0The [facility] HospitalComment on above:Performed By: #### MG, CMP #### [facility] [address] [place] [address] Dr. Doreen BetancourtAlbumin/Globulin [Mass ratio]1.1 {ratio}NormalThe [facility] HospitalComment on above:Performed By: #### MG, CMP #### [facility] [address] [place] [address] Dr. Doreen CarolinaP [Catalytic activity/Vol]125 U/LCritically qnka57-631Mgt [facility] HospitalComment on above:Performed By: #### MG, CMP #### [facility] [address] [place] [address] Dr. Doreen Friend [Catalytic activity/Vol]16 U/EWfcmhw04-84Nhl [facility] HospitalComment on above:Performed By: #### MG, CMP #### [facility] [address] [place] [address] Dr. Doreen Cifuentes gap [Moles/Vol]8.8 mmol/LNormalThe [facility] HospitalComment on above:Performed By: #### MG, CMP #### [facility] [address] [place] [address] Dr. Doreen BetancourtAST [Catalytic activity/Vol]5 U/LCritically dfs44-13Axj [facility] HospitalComment on above:Performed By: #### MG, CMP #### [facility] [address] [place] [address] Dr. Doreen BetancourtBilirubin [Mass/Vol]0.3 mg/dLNormal0.2-1.0The [facility] Comment on above:Performed By: #### MG, CMP #### [facility] [address] [place] [address] Dr. Doreen BetancourtCalcium [Mass/Vol]8.8 mg/dLNormal8.5-10.1The [facility] Comment on above:Performed By: #### MG, CMP #### [facility] [address] [place] [address] Dr. Doreen BetancourtChloride [Moles/Vol]104 mmol/ONaacri92-248Gcx [facility] Comment on above:Performed By: #### MG, CMP #### [facility] [address] [place] [address] Dr. Doreen BetancourtCO2 [Moles/Vol]29.5 mmol/ZGkigfu74.0-32.0The [facility] Comment on above:Performed By: #### MG, CMP #### [facility] [address] [place] [address] Dr. Doreen BetancourtCreatinine [Mass/Vol]0.75 mg/dLNormal0.55-1.02The [facility] HospitalComment on above:Performed By: #### MG, CMP #### [facility] [address] [place] [address] Dr. Doreen GregoryGFR-AF EQUATORIAL GUINEAN>60Normal>=60The [facility] HospitalComment on above:Performed By: #### MG, CMP #### [facility] [address] [place] [address] Dr. Doreen GregoryGFR-NON AF EQUATORIAL GUINEAN>60Normal>=60The [facility] HospitalComment on above:Performed By: #### MG, CMP #### [facility] [address] [place] [address] Dr. Doreen BetancourtGlobulin (S) [Mass/Vol]3.3 g/dLNormalThe [facility] HospitalComment on above:Performed By: #### MG, CMP #### [facility] [address] [place] [address] Dr. Doreen BetancourtGlucose [Mass/Vol]110 mg/dLCritically lliy88-738Kdz [facility] HospitalComment on above:Performed By: #### MG, CMP #### [facility] [address] [place] [address] Dr. Doreen BetancourtPotassium [Moles/Vol]4.3 mmol/LNormal3.5-5.1The [facility] Comment on above:Performed By: #### MG, CMP #### [facility] [address] [place] [address] Dr. Doreen BetancourtProtein [Mass/Vol]7.0 g/dLNormal6.4-8.2The [facility] Comment on above:Performed By: #### MG, CMP #### [facility] [address] [place] [address] Dr. Doreen Maderadium [Moles/Vol]138 mmol/JSqgvob629-415Rpo [facility] Comment on above:Performed By: #### MG, CMP #### [facility] [address] [place] [address] Dr. Doreen BetancourtUrea nitrogen [Mass/Vol]11.0 mg/dLNormal7.0-18.0The [facility] HospitalComment on above:Performed By: #### MG, CMP #### [facility] [address] [place] [address] Dr. Doreen Copeland nitrogen/Creatinine [Mass ratio]14.7 mg/mgNormalThe [facility] HospitalComment on above:Performed By: #### MG, CMP #### [facility] [address] [place] [address] Dr. Doreen Keller AUTO DIFFon 77-87-0537GYRY #0.0 103/ulNormal0.0-0.1The [facility] HospitalComment on above:Performed By: #### MG, CMP #### [facility] [address] [place] [address] Dr. Doreen BetancourtBasophils/100 WBC (Bld)0.8 %Normal0.2-2.0The [facility] Comment on above:Performed By: #### MG, CMP #### [facility] [address] [place] [address] Dr. Doreen Everett #0.1 103/ulNormal0.0-0.7The [facility] HospitalComment on above: Performed By: #### MG, CMP #### [facility] [address] [place] [address] Dr. Doreen Gregoryosinophils/100 WBC (Bld)2.3 %Normal0.9-7.0The [facility] Comment on above:Performed By: #### MG, CMP #### [facility] [address] [place] [address] Dr. Doreen Gregoryrythrocyte distribution width (RBC) [Ratio]14.5 %Ndcycp36.0-15.0 The [facility] Hospitalment on above:Performed By: #### MG, CMP #### [facility] [address] [place] [address] Dr. Doreen BetancourtHematocrit (Bld) [Volume fraction]38.8 %Hxypmy82.0-48.0The [facility] HospitalComment on above:Performed By: #### MG, CMP #### [facility] [address] [place] [address] Dr. Doreen BetancourtHemoglobin (Bld) [Mass/Vol]12.6 g/sMCstjrw54.0-16.0The [facility] Hospitalment on above:Performed By: #### MG, CMP #### [facility] [address] [place] [address] Dr. Doreen Shepherd #0.00 10e3/ulNormal0.00-0.03The [facility] Hospitalment on above:Performed By: #### MG, CMP #### [facility] [address] [place] [address] Dr. Doreen Shepherd %0.0 %Normal0.0-0.5The [facility] Hospitalment on above: Performed By: #### MG, CMP #### [facility] [address] [place] [address] Dr. Doreen Kaiser #1.9 103/ulNormal1.2-3.8The [facility] HospitalComment on above:Performed By: #### MG, CMP #### [facility] [address] [place] [address] Dr. Doreen Nunezmphocytes/100 WBC (Bld)46.7 %Okwihx71.5-60.0The [facility] HospitalComment on above:Performed By: #### MG, CMP #### [facility] [address] [place] [address] Dr. Doreen Yusuf DIFF REQNONormalThe [facility] HospitalComment on above: Performed By: #### MG, CMP #### [facility] [address] [place] [address] Dr. Doreen Stearns (RBC) [Entitic mass]30.3 bmSbkgsm91.7-34.0The [facility] HospitalComment on above:Performed By: #### MG, CMP #### [facility] [address] [place] [address] Dr. Doreen Stearns (RBC) [Mass/Vol]32.5 g/dTGscpwy66.9-35.2The [facility] HospitalComment on above:Performed By: #### MG, CMP #### [facility] [address] [place] [address] Dr. Doreen Alejo (RBC) [Entitic vol]93.3 vJWaatrr13.0-99.0The [facility] HospitalComment on above:Performed By: #### MG, CMP #### [facility] [address] [place] [address] Dr. Doreen Cheema #0.4 103/ulNormal0.3-0.8The [facility] HospitalComment on above:Performed By: #### MG, CMP #### [facility] Laboratory [address] [place] [address] Dr. Doreen Ruizocytes/100 WBC (Bld)11.1 %Normal1.7-12.0[facility] Comment on above:Performed By: #### MG, CMP #### [facility] [address] [place] [address] Dr. Doreen Brar #1.6 103/ulNormal1.4-6.5The [facility] HospitalComment on above:Performed By: #### MG, CMP #### [facility] [address] [place] [address] Dr. Doreen Wrenutrophils/100 WBC (Bld)39.1 %Critically low43.0-75.0The [facility] HospitalComment on above:Performed By: #### MG, CMP #### [facility] [address] [place] [address] Dr. Doreen BetancourtPlatelet mean volume (Bld) [Entitic vol]9.9 fLNormal9.5-13.5The [facility] HospitalComment on above:Performed By: #### MG, CMP #### [facility] [address] [place] [address] Dr. Doreen BetancourtPLT220 103/niQtekwn338-731Iif [facility] HospitalComment on above: Performed By: #### MG, CMP #### [facility] [address] [place] [address] Dr. Doreen BetancourtRBC4.16 106/ulCritically low4.20-5.40The [facility] HospitalComment on above:Performed By: #### MG, CMP #### [facility] [address] [place] [address] Dr. Doreen BetancourtWBC4.0 103/ulNormal4.0-11.0The [facility] HospitalComment on above: Performed By: #### MG, CMP #### [facility] [address] [place] [address] Dr. Doreen BetancourtMAGNESIUMon [id number] [Mass/Vol]2.2 mg/dLNormal1.8-2.4 The [facility] HospitalComment on above:Performed By: #### CVDTBH #### [facility] [address] [place] [address] Dr. Doreen BestF 14(COMP METB)on [id number] [Mass/Vol]3.9 g/dLNormal 3.4-5.0The [facility] HospitalComment on above:Performed By: #### CVDTBH #### [facility] [address] [address] [address] Doreen BetancourtAlbumin/Globulin [Mass ratio]1.1 {ratio}NormalThe [facility] HospitalComment on above:Performed By: #### CVDTBH #### [facility] [address] [address] [address] Doreen Lopez [Catalytic activity/Vol]100 U/OJaokxn14-560Ion [facility] HospitalComment on above:Performed By: #### CVDTBH #### [facility] [address] [address] [address] Doreen Friend [Catalytic activity/Vol]19 U/ZJwclsq53-66Nhm [facility] HospitalComment on above:Performed By: #### CVDTBH #### [facility] [address] [place] [address] Dr. Doreen Sharifon gap [Moles/Vol]6.9 mmol/LNormalThe [facility] HospitalComment on above:Performed By: #### CVDTBH #### [facility] [address] [place] [address] [Catalytic activity/Vol]14 U/LCritically mug59-02Gad [facility] Hospitalment on above:Performed By: #### CVDTBH #### [facility] [address] [address] [address] Doreen BetancourtBilirubin [Mass/Vol]0.3 mg/dLNormal0.2-1.0The [facility] Comment on above:Performed By: #### CVDTBH #### [facility] [address] [address] [address] Doreen BetancourtCalcium [Mass/Vol]9.6 mg/dLNormal8.5-10.1The [facility] Comment on above:Performed By: #### CVDTBH #### [facility] [address] [address] [address] Doreen BetancourtChloride [Moles/Vol]105 mmol/EGkjgvh55-298Kdf [facility] Comment on above:Performed By: #### CVDTBH #### [facility] [address] [address] [address] Doreen BetancourtCO2 [Moles/Vol]32.2 mmol/LCritically high21.0-32.0The [facility] HospitalComment on above:Performed By: #### CVDTBH #### [facility] [address] [place] [address] Dr. Doreen BetancourtCreatinine [Mass/Vol]0.69 mg/dLNormal0.55-1.02The [facility] HospitalComment on above:Performed By: #### CVDTBH #### [facility] [address] [place] [address] Dr. Doreen GregoryGFR-AF EQUATORIAL GUINEAN>60Normal>=60The [facility] HospitalComment on above:Performed By: #### CVDTBH #### [facility] [address] [place] [address] Dr. Doreen GregoryGFR-NON AF EQUATORIAL GUINEAN>60Normal>=60The [facility] HospitalComment on above:Performed By: #### CVDTBH #### [facility] [address] [place] [address] Dr. Doreen BetancourtGlobulin (S) [Mass/Vol]3.6 g/dLNormalThe [facility] HospitalComment on above:Performed By: #### CVDTBH #### [facility] [address] [place] [address] Dr. Doreen BetancourtGlucose [Mass/Vol]103 mg/fDWtdkxu99-579Gro [facility] Comment on above:Performed By: #### CVDTBH #### [facility] [address] [place] [address] Dr. Doreen BetancourtPotassium [Moles/Vol]5.1 mmol/LNormal3.5-5.1The [facility] Comment on above:Performed By: #### CVDTBH #### [facility] [address] [place] [address] Dr. Doreen BetancourtProtein [Mass/Vol]7.5 g/dLNormal6.4-8.2[facility] Comment on above:Performed By: #### CVDTBH #### [facility] [address] [place] [address] Dr. Doreen Maderadium [Moles/Vol]139 mmol/CGaezje868-498Spu [facility] Comment on above:Performed By: #### CVDTBH #### [facility] [address] [place] [address] Dr. Doreen Copeland nitrogen [Mass/Vol]13.0 mg/dLNormal7.0-18.0The [facility] HospitalComment on above:Performed By: #### CVDTBH #### [facility] [address] [place] [address] Dr. Doreen Copeland nitrogen/Creatinine [Mass ratio]18.8 mg/mgNormalThe [facility] HospitalComment on above:Performed By: #### CVDTBH #### [facility] [address] [place] [address] Dr. Doreen Keller AUTO DIFFon [id number] #0.0 103/ulNormal0.0-0.1[facility] HospitalComment on above:Performed By: #### CBC #### [facility] [address] [place] [address] Dr. Doreen BetancourtBasophils/100 WBC (Bld)0.7 %Normal0.2-2.0[facility] Comment on above:Performed By: #### CBC #### [facility] [address] [place] [address] Dr. Doreen Everett #0.1 103/ulNormal0.0-0.7The [facility] HospitalComment on above: Performed By: #### CBC #### [facility] [address] [place] [address] Dr. Doreen Gregoryosinophils/100 WBC (Bld)2.0 %Normal0.9-7.0The [facility] Comment on above:Performed By: #### CBC #### [facility] [address] [place] [address] Dr. Doreen Gregoryrythrocyte distribution width (RBC) [Ratio]13.9 %Exmaha58.0-15.0 The [facility] HospitalComment on above:Performed By: #### CBC #### [facility] [address] [place] [address] Dr. Doreen BetancourtHematocrit (Bld) [Volume fraction]41.2 %Bpsbgs67.0-48.0The [facility] HospitalComment on above:Performed By: #### CBC #### [facility] [address] [place] [address] Dr. Doreen BetancourtHemoglobin (Bld) [Mass/Vol]13.2 g/bWSkgfed29.0-16.0[facility] on above:Performed By: #### CBC #### [facility] [address] [place] [address] Dr. Doreen Shepherd #0.01 10e3/ulNormal0.00-0.03The [facility] HospitalComup [facility] on above:Performed By: #### CBC #### [facility] [address] [place] [address] Dr. Doreen Shepherd %0.2 %Normal0.0-0.5The [facility] HospitalComup [facility] on above: Performed By: #### CBC #### [facility] [address] [place] [address] Dr. Doreen CamachoH #1.9 103/ulNormal1.2-3.8The [facility] HospitalComment on above:Performed By: #### CBC #### [facility] [address] [place] [address] Dr. Doreen Nunezmphocytes/100 WBC (Bld)41.0 %Qrppfa79.5-60.0The [facility] HospitalComup [facility] on above:Performed By: #### CBC #### [facility] [address] [place] [address] Dr. Doreen DixonUAL DIFF REQNONormalThe [facility] HospitalComment on above: Performed By: #### CBC #### [facility] [address] [address] [address] Doreen Stearns (RBC) [Entitic mass]29.3 duYbrgod65.7-34.0The [facility] HospitalComment on above:Performed By: #### CBC #### [facility] [address] [place] [address] Dr. Doreen Stearns (RBC) [Mass/Vol]32.0 g/fWTqspan85.9-35.2The [facility] HospitalComment on above:Performed By: #### CBC #### [facility] [address] [place] [address] Dr. Doreen StearnsV (RBC) [Entitic vol]91.6 kLIyrclr66.0-99.0The [facility] HospitalComment on above:Performed By: #### CBC #### [facility] [address] [place] [address] Dr. Doreen Cheema #0.1 103/ulCritically low0.3-0.8The [facility] HospitalComment on above:Performed By: #### CBC #### [facility] [address] [place] [address] Dr. Doreen Ruizocytes/100 WBC (Bld)1.5 %Critically low1.7-12.0The [facility] HospitalComment on above:Performed By: #### CBC #### [facility] [address] [place] [address] Dr. Doreen Brar #2.5 103/ulNormal1.4-6.5The [facility] HospitalComment on above:Performed By: #### CBC #### [facility] [address] [place] [address] Dr. Doreen Wrenutrophils/100 WBC (Bld)54.6 %Gqmjke09.0-75.0The [facility] HospitalComment on above:Performed By: #### CBC #### [facility] [address] [place] [address] Dr. Doreen Goldsteinlet mean volume (Bld) [Entitic vol]10.5 fLNormal9.5-13.5The [facility] HospitalComment on above:Performed By: #### CBC #### [facility] [address] [place] [address] Dr. Doreen BetancourtPLT270 103/abRtcsuh428-316Rbz [facility] HospitalComment on above: Performed By: #### CBC #### [facility] [address] [place] [address] Dr. Doreen BetancourtRBC4.50 106/ulNormal4.20-5.40The [facility] HospitalComment on above:Performed By: #### CBC #### [facility] [address] [place] [address] Dr. Doreen BetancourtWBC4.6 103/ulNormal4.0-11.0The [facility] HospitalComment on above: Performed By: #### CBC #### [facility] [address] [place] [address] Dr. Doreen BetancourtPROF 14(COMP METB)on 84-31-8438Nlgkdzk [Mass/Vol]3.9 g/dLNormal 3.4-5.0The [facility] HospitalComment on above:Performed By: #### CBC #### [facility] [address] [place] [address] Dr. Doreen BetancourtAlbumin/Globulin [Mass ratio]1.0 {ratio}NormalThe [facility] Hospitalment on above:Performed By: #### CBC #### [facility] [address] [place] [address] Dr. Doreen Lopez [Catalytic activity/Vol]83 U/XQsycbo25-248Khs [facility] HospitalComment on above:Performed By: #### CBC #### [facility] [address] [place] [address] Dr. Doreen Friend [Catalytic activity/Vol]22 U/TSurcvm37-97Kgb [facility] HospitalComment on above:Performed By: #### CBC #### [facility] [address] [place] [address] Dr. Doreen Cifuentes gap [Moles/Vol]12.6 mmol/LNormalThe [facility] on above:Performed By: #### CBC #### [facility] [address] [address] [address] Doreen BetancourtAST [Catalytic activity/Vol]16 U/ZFnmfif05-17Yeq [facility] HospitalComment on above:Performed By: #### CBC #### [facility] [address] [address] [address] Doreen BetancourtBilirubin [Mass/Vol]0.6 mg/dLNormal0.2-1.0The [facility] Comment on above:Performed By: #### CBC #### [facility] [address] [address] [address] Doreen BetancourtCalcium [Mass/Vol]9.4 mg/dLNormal8.5-10.1The [facility] Comment on above:Performed By: #### CBC #### [facility] [address] [address] [address] Doreen BetancourtChloride [Moles/Vol]101 mmol/UCulxbn37-500Gsm [facility] Comment on above:Performed By: #### CBC #### [facility] [address] [address] [address] Doreen BetancourtCO2 [Moles/Vol]25.9 mmol/EEyeslc14.0-32.0The [facility] Comment on above:Performed By: #### CBC #### [facility] [address] [address] [address] Doreen BetancourtCreatinine [Mass/Vol]0.64 mg/dLNormal0.55-1.02The [facility] HospitalComment on above:Performed By: #### CBC #### [facility] [address] [address] [address] Doreen GregoryGFR-AF EQUATORIAL GUINEAN>60Normal>=60The [facility] HospitalComment on above:Performed By: #### CBC #### [facility] [address] [address] [address] Doreen GregoryGFR-NON AF EQUATORIAL GUINEAN>60Normal>=60The [facility] HospitalComment on above:Performed By: #### CBC #### [facility] [address] [address] [address] Doreen BetancourtGlobulin (S) [Mass/Vol]3.9 g/dLNormalThOur Lady of Mercy Hospital - AndersonComment on above:Performed By: #### CBC #### [facility] [address] [address] [address] Doreen BetancourtGlucose [Mass/Vol]135 mg/dLCritically tukp07-349Xob [facility] HospitalComment on above:Performed By: #### CBC #### [facility] [address] [address] [address] Doreen BetancourtPotassium [Moles/Vol]4.5 mmol/LNormal3.5-5.1The [facility] Comment on above:Performed By: #### CBC #### [facility] [address] [place] [address] Dr. Doreen BetancourtProtein [Mass/Vol]7.8 g/dLNormal6.4-8.2The [facility] Comment on above:Performed By: #### CBC #### [facility] [address] [place] [address] Dr. Doreen BetancourtSodium [Moles/Vol]135 mmol/LCritically nch520-595Onm [facility] HospitalComment on above:Performed By: #### CBC #### [facility] [address] [place] [address] Dr. Doreen BetancourtUrea nitrogen [Mass/Vol]15.0 mg/dLNormal7.0-18.0The [facility] HospitalComment on above:Performed By: #### CBC #### [facility] [address] [place] [address] Dr. Doreen BetancourtUrea nitrogen/Creatinine [Mass ratio]23.4 mg/mgNormSt. Elizabeth HospitalComment on above:Performed By: #### CBC #### [facility] [address] [place] [address] Dr. Doreen LalaC AUTO DIFFon [id number] #0.0 103/ulNormal0.0-0.1The [facility] HospitalComment on above:Performed By: #### CVDTBH #### [facility] [address] [place] [address] Dr. Doreen BetancourtBasophils/100 WBC (Bld)0.8 %Normal0.2-2.0The [facility] Comment on above:Performed By: #### CVDTBH #### [facility] [address] [place] [address] Dr. Doreen Everett #0.1 103/ulNormal0.0-0.7The [facility] HospitalComment on above: Performed By: #### CVDTBH #### [facility] [address] [place] [address] Dr. Doreen Gregoryosinophils/100 WBC (Bld)2.7 %Normal0.9-7.0The [facility] Comment on above:Performed By: #### CVDTBH #### [facility] [address] [place] [address] Dr. Doreen Gregoryrythrocyte distribution width (RBC) [Ratio]13.9 %Qbxbtr06.0-15.0 The [facility] HospitalComment on above:Performed By: #### CVDTBH #### [facility] [address] [place] [address] Dr. Doreen BetancourtHematocrit (Bld) [Volume fraction]40.9 %Vnzktk27.0-48.0The [facility] HospitalComment on above:Performed By: #### CVDTBH #### [facility] [address] [place] [address] Dr. Doreen BetancourtHemoglobin (Bld) [Mass/Vol]13.1 g/iUWvthbn09.0-16.0The [facility] HospitalComment on above:Performed By: #### CVDTBH #### [facility] [address] [place] [address] Dr. Doreen Shepherd #0.01 10e3/ulNormal0.00-0.03The [facility] HospitalComment on above:Performed By: #### CVDTBH #### [facility] [address] [place] [address] Dr. Doreen BetancourtIG %0.2 %Normal0.0-0.5The [facility] HospitalComment on above: Performed By: #### CVDTBH #### [facility] [address] [place] [address] Dr. Doreen Kaiser #1.9 103/ulNormal1.2-3.8The [facility] HospitalComment on above:Performed By: #### CVDTBH #### [facility] [address] [place] [address] Dr. Doreen Camachohocytes/100 WBC (Bld)39.1 %Whmvns72.5-60.0The [facility] HospitalComment on above:Performed By: #### CVDTBH #### [facility] [address] [place] [address] Dr. Doreen Yusuf DIFF REQNONormalThe [facility] HospitalComment on above: Performed By: #### EDENTBH #### [facility] [address] [place] [address] Dr. Doreen Tapia (RBC) [Entitic mass]29.6 flBxqsya16.7-34.0The [facility] HospitalComment on above:Performed By: #### EDENTBH #### [facility] [address] [place] [address] Dr. Doreen Stearns (RBC) [Mass/Vol]32.0 g/nZPispmx84.9-35.2The [facility] HospitalComment on above:Performed By: #### CVDTBH #### [facility] [address] [place] [address] Dr. Doreen Stearns (RBC) [Entitic vol]92.3 tSUwivtx29.0-99.0The [facility] HospitalComment on above:Performed By: #### CVDTBH #### [facility] [address] [place] [address] Dr. Doreen Cheema #0.4 103/ulNormal0.3-0.8The [facility] HospitalComment on above:Performed By: #### CVDTBH #### [facility] [address] [address] [address] Doreen Ruizocytes/100 WBC (Bld)7.6 %Normal1.7-12.0The [facility] Comment on above:Performed By: #### CVDTBH #### [facility] [address] [place] [address] Dr. Doreen Brar #2.4 103/ulNormal1.4-6.5The [facility] HospitalComment on above:Performed By: #### CVDTBH #### [facility] [address] [place] [address] Dr. Doreen Wrenutrophils/100 WBC (Bld)49.6 %Theqjg36.0-75.0The [facility] HospitalComment on above:Performed By: #### CVDTBH #### [facility] [address] [place] [address] Dr. Doreen BetancourtPlatelet mean volume (Bld) [Entitic vol]10.3 fLNormal9.5-13.5The [facility] HospitalComment on above:Performed By: #### CVDTBH #### [facility] [address] [place] [address] Dr. Doreen BetancourtPLT274 103/tjMtfjoj027-201Ttb [facility] HospitalComment on above: Performed By: #### CVDTBH #### [facility] [address] [place] [address] Dr. Doreen BetancourtRBC4.43 106/ulNormal4.20-5.40The [facility] Hospitalment on above:Performed By: #### CVDTBH #### [facility] [address] [place] [address] Dr. Doreen BetancourtWBC4.9 103/ulNormal4.0-11.0The [facility] Hospitalment on above: Performed By: #### CVDTBH #### [facility] [address] [place] [address] Dr. Doreen BetancourtMAGNESIUMon 41-39-0607Ibeosgvdk [Mass/Vol]2.1 mg/dLNormal1.8-2.4 [facility] on above:Performed By: #### MG, CMP #### [facility] [address] [place] [address] Dr. Doreen Pepper HCG QUALon [id number], QUALNegativeNormalNEGATIVE [facility] on above:Performed By: #### MG, CMP #### [facility] [address] [place] [address] Dr. Doreen BetancourtPROF 14(COMP METB)on 92-49-3545Xbtoegc [Mass/Vol]3.9 g/dLNormal 3.4-5.0The [facility] Hospitalment on above:Performed By: #### MG, CMP #### [facility] [address] [place] [address] Dr. Doreen BetancourtAlbumin/Globulin [Mass ratio]1.1 {ratio}NormalThe [facility] on above:Performed By: #### MG, CMP #### [facility] [address] [place] [address] Dr. Doreen Lopez [Catalytic activity/Vol]81 U/ITdiahp76-870Yvj [facility] Hospitalment on above:Performed By: #### MG, CMP #### [facility] [address] [place] [address] Dr. Doreen Friend [Catalytic activity/Vol]27 U/JLakrjd20-89Mcg [facility] HospitalComment on above:Performed By: #### MG, CMP #### [facility] [address] [place] [address] Dr. Doreen Cifuentes gap [Moles/Vol]8.6 mmol/LNormalThe [facility] HospitalComment on above:Performed By: #### MG, CMP #### [facility] [address] [place] [address] [Catalytic activity/Vol]23 U/HFuijuq92-62Odr [facility] HospitalComup health system on above:Performed By: #### MG, CMP #### [facility] [address] [place] [address] Dr. Yilan ChangBilirubin [Mass/Vol]0.3 mg/dLNormal0.2-1.0The [facility] Comment on above:Performed By: #### MG, CMP #### [facility] [address] [place] [address] Dr. Doreen BetancourtCalcium [Mass/Vol]9.5 mg/dLNormal8.5-10.1The [facility] Comment on above:Performed By: #### MG, CMP #### [facility] [address] [place] [address] Dr. Doreen BetancourtChloride [Moles/Vol]104 mmol/FIisfuf21-556Cyf [facility] Comment on above:Performed By: #### MG, CMP #### [facility] [address] [place] [address] Dr. Dorene BetancourtCO2 [Moles/Vol]31.8 mmol/MTvyhat39.0-32.0[facility] Comment on above:Performed By: #### MG, CMP #### [facility] [address] [place] [address] Dr. Doreen BetancourtCreatinine [Mass/Vol]0.59 mg/dLNormal0.55-1.02The [facility] HospitalComment on above:Performed By: #### MG, CMP #### [facility] [address] [place] [address] Dr. Doreen GregoryGFR-AF EQUATORIAL GUINEAN>60Normal>=60The [facility] HospitalComment on above:Performed By: #### MG, CMP #### [facility] [address] [place] [address] Dr. Doreen GregoryGFR-NON AF EQUATORIAL GUINEAN>60Normal>=60The [facility] HospitalComment on above:Performed By: #### MG, CMP #### [facility] [address] [place] [address] Dr. Doreen BetancourtGlobulin (S) [Mass/Vol]3.7 g/dLNormalThe [facility] HospitalComment on above:Performed By: #### MG, CMP #### [facility] [address] [place] [address] Dr. Doreen BetancourtGlucose [Mass/Vol]110 mg/dLCritically ctyb95-085Mvm [facility] HospitalComment on above:Performed By: #### MG, CMP #### [facility] [address] [address] [address] Doreen BetancourtPotassium [Moles/Vol]4.4 mmol/LNormal3.5-5.1The [facility] Comment on above:Performed By: #### MG, CMP #### [facility] [address] [address] [address] Doreen BetancourtProtein [Mass/Vol]7.6 g/dLNormal6.4-8.2[facility] Comment on above:Performed By: #### MG, CMP #### [facility] [address] [place] [address] Dr. Doreen BetancourtSodium [Moles/Vol]140 mmol/IWrxvvr339-999Ege [facility] Comment on above:Performed By: #### MG, CMP #### [facility] [address] [place] [address] Dr. Doreen BetancourtUrea nitrogen [Mass/Vol]17.0 mg/dLNormal7.0-18.0The [facility] HospitalComment on above:Performed By: #### MG, CMP #### [facility] [address] [place] [address] Dr. Doreen BetancourtUrea nitrogen/Creatinine [Mass ratio]28.8 mg/mgNormalThe [facility] HospitalComment on above:Performed By: #### MG, CMP #### [facility] [address] [place] [address] Dr. Doreen BetancourtXR CHEST 1 Von [id number] CHEST 1 VEXAMINATION: XR CHEST 1 V HISTORY: Primary malignant neoplasm of [...] Electronically authenticated by: NEDA COULTER Date: 2022-05-22 11:22NoTr[facility] CampusCovid-19 PCR (CVDTB)on [id number]-CoV-2 (COVID-19) RNA MARIVEL+probe Ql (Unsp spec)Not detectedNormalNOT DETECTEDThe [facility] Comment on above:Result Comment: This test is not yet approved or cleared by the [place] FDA. When there are no FDA-approved or cleared tests available, and other criteria are met, FDA can make tests available under an emergency access mechanism called an Emergency Use Authorization (EUA). The EUA for this test is supported by the Neurourologist of Health and Human Service's (HHS's) declaration that circumstances exist to justify the emergency use of in vitro diagnostics for the detection and/or diagnosis of the virus that causes COVID- 19. This EUA will remain in effect (meaning [...] of clinical signs and symptoms consistent with SARS-CoV-2.Performed By: #### CVDTBH #### [facility] [address] [place] [address] Dr. Doreen Keller AUTO DIFFon [id number] #0.0 103/ulNormal0.0-0.1[facility] HospitalComment on above:Performed By: #### MG, CMP #### [facility] [address] [place] [address] Dr. Doreen Pardosophils/100 WBC (Bld)0.4 %Normal0.2-2.0[facility] Comment on above:Performed By: #### MG, CMP #### [facility] [address] [place] [address] Dr. Yilan ChangEO #0.1 103/ulNormal0.0-0.7The [facility] HospitalComment on above: Performed By: #### MG, CMP #### [facility] [address] [place] [address] Dr. Doreen Gregoryosinophils/100 WBC (Bld)0.7 %Critically low0.9-7.0The [facility] HospitalComment on above:Performed By: #### MG, CMP #### [facility] [address] [place] [address] Dr. Doreen Gregoryrythrocyte distribution width (RBC) [Ratio]12.9 %Itnbbm53.0-15.0 The [facility] Hospitalment on above:Performed By: #### MG, CMP #### [facility] [address] [place] [address] Dr. Doreen BetancourtHematocrit (Bld) [Volume fraction]32.5 %Critically low36.0-48.0 The [facility] HospitalComment on above:Performed By: #### MG, CMP #### [facility] [address] [place] [address] Dr. Doreen BetancourtHemoglobin (Bld) [Mass/Vol]10.6 g/dLCritically low12.0-16.0The [facility] Hospitalment on above:Performed By: #### MG, CMP #### [facility] [address] [place] [address] Dr. Doreen Shepherd #0.02 10e3/ulNormal0.00-0.03The [facility] HospitalComup [facility] on above:Performed By: #### MG, CMP #### [facility] [address] [place] [address] Dr. Doreen Shepherd %0.3 %Normal0.0-0.5The [facility] HospitalComment on above: Performed By: #### MG, CMP #### [facility] [address] [place] [address] Dr. Doreen NunezMPH #2.2 103/ulNormal1.2-3.8The [facility] HospitalComment on above:Performed By: #### MG, CMP #### [facility] [address] [place] [address] Dr. Doreen Nunezmphocytes/100 WBC (Bld)32.0 %Fabjeg58.5-60.0The [facility] HospitalComment on above:Performed By: #### MG, CMP #### [facility] [address] [place] [address] Dr. Doreen Yusuf DIFF REQNONormalThe [facility] HospitalComment on above: Performed By: #### MG, CMP #### [facility] [address] [place] [address] Dr. Doreen Stearns (RBC) [Entitic mass]30.5 oyCicnvm81.7-34.0The [facility] HospitalComment on above:Performed By: #### MG, CMP #### [facility] [address] [place] [address] Dr. Doreen Stearns (RBC) [Mass/Vol]32.6 g/lPEgwszg22.9-35.2The [facility] HospitalComment on above:Performed By: #### MG, CMP #### [facility] [address] [place] [address] Dr. Doreen Stearns (RBC) [Entitic vol]93.4 lXXhcwox40.0-99.0The [facility] HospitalComment on above:Performed By: #### MG, CMP #### [facility] [address] [place] [address] Dr. Doreen Cheema #0.6 103/ulNormal0.3-0.8The [facility] HospitalComment on above:Performed By: #### MG, CMP #### [facility] [address] [place] [address] Dr. Doreen Ruizocytes/100 WBC (Bld)8.3 %Normal1.7-12.0The [facility] Comment on above:Performed By: #### MG, CMP #### [facility] [address] [place] [address] Dr. Doreen Brar #3.9 103/ulNormal1.4-6.5The [facility] HospitalComment on above:Performed By: #### MG, CMP #### [facility] [address] [place] [address] Dr. Doreen BetancourtNeutrophils/100 WBC (Bld)58.3 %Cpenaq41.0-75.0The [facility] HospitalComment on above:Performed By: #### MG, CMP #### [facility] [address] [place] [address] Dr. Doreen BetancourtPlatelet mean volume (Bld) [Entitic vol]10.4 fLNormal9.5-13.5The [facility] HospitalComment on above:Performed By: #### MG, CMP #### [facility] [address] [place] [address] Dr. Doreen BetancourtPLT213 103/nmPvmson660-497Fcu [facility] HospitalComment on above: Performed By: #### MG, CMP #### [facility] [address] [place] [address] Dr. Doreen BetancourtRBC3.48 106/ulCritically low4.20-5.40The [facility] HospitalComment on above:Performed By: #### MG, CMP #### [facility] [address] [place] [address] Dr. Doreen BetancourtWBC6.8 103/ulNormal4.0-11.0The [facility] HospitalComment on above: Performed By: #### MG, CMP #### [facility] [address] [place] [address] Dr. Doreen BetancourtPROF CHEM 8 (BAS METB)on 27-99-2950Zhcxb gap [Moles/Vol]7.3 mmol/LNormalThe [facility] HospitalComment on above:Performed By: #### MG, CMP #### [facility] [address] [place] [address] Dr. Doreen BetancourtCalcium [Mass/Vol]8.8 mg/dLNormal8.5-10.1The [facility] Comment on above:Performed By: #### MG, CMP #### [facility] [address] [address] [address] Doreen BetancourtChloride [Moles/Vol]105 mmol/OOkajsv59-498Xmw [facility] Comment on above:Performed By: #### MG, CMP #### [facility] [address] [place] [address] Dr. Doreen BetancourtCO2 [Moles/Vol]27.8 mmol/TUxmzkn45.0-32.0The [facility] Comment on above:Performed By: #### MG, CMP #### [facility] [address] [place] [address] Dr. Doreen BetancourtCreatinine [Mass/Vol]0.57 mg/dLNormal0.55-1.02The [facility] HospitalComment on above:Performed By: #### MG, CMP #### [facility] [address] [place] [address] Dr. Doreen GregoryGFR-AF EQUATORIAL GUINEAN>60Normal>=60The [facility] HospitalComment on above:Performed By: #### MG, CMP #### [facility] [address] [place] [address] Dr. Doreen GregoryGFR-NON AF EQUATORIAL GUINEAN>60Normal>=60The [facility] HospitalComment on above:Performed By: #### MG, CMP #### [facility] [address] [place] [address] Dr. Doreen BetancourtGlucose [Mass/Vol]93 mg/cEKygsaf90-398Xij [facility] Comment on above:Performed By: #### MG, CMP #### [facility] [address] [place] [address] Dr. Doreen BetancourtPotassium [Moles/Vol]4.1 mmol/LNormal3.5-5.1The [facility] Comment on above:Performed By: #### MG, CMP #### [facility] [address] [place] [address] Dr. Doreen BetancourtSodium [Moles/Vol]136 mmol/AWuazqy550-674Owf [facility] Comment on above:Performed By: #### MG, CMP #### [facility] [address] [place] [address] Dr. Doreen Copeland nitrogen [Mass/Vol]5.0 mg/dLCritically low7.0-18.0The [facility] HospitalComment on above:Performed By: #### MG, CMP #### [facility] [address] [address] [address] Doreen Copeland nitrogen/Creatinine [Mass ratio]8.8 mg/mgNormalThe [facility] HospitalComment on above:Performed By: #### MG, CMP #### [facility] [address] [address] [address] Doreen BetancourtPROF CHEM 8 (BAS METB)on 01-65-6932Jxikv gap [Moles/Vol]9.6 mmol/LNormalThe [facility] HospitalComment on above:Performed By: #### CVDTBH #### [facility] [address] [address] [address] Doreen BetancourtCalcium [Mass/Vol]8.8 mg/dLNormal8.5-10.1The [facility] Comment on above:Performed By: #### CVDTBH #### [facility] [address] [address] [address] Doreen BetancourtChloride [Moles/Vol]101 mmol/AYozzqh83-849Eba [facility] Comment on above:Performed By: #### CVDTBH #### [facility] [address] [address] [address] Doreen BetancourtCO2 [Moles/Vol]26.8 mmol/MWqibig81.0-32.0The [facility] Comment on above:Performed By: #### CVDTBH #### [facility] [address] [address] [address] Doreen BetancourtCreatinine [Mass/Vol]0.53 mg/dLCritically low0.55-1.02The [facility] HospitalComment on above:Performed By: #### CVDTBH #### [facility] [address] [address] [address] Logan ChangEGFR-AF EQUATORIAL GUINEAN>60Normal>=60The [facility] HospitalComment on above:Performed By: #### CVDTBH #### [facility] [address] [place] [address] Dr. Doreen GregoryGFR-NON AF EQUATORIAL GUINEAN>60Normal>=60The [facility] on above:Performed By: #### CVDTBH #### [facility] [address] [place] [address] Dr. Doreen BetancourtGlucose [Mass/Vol]122 mg/dLCritically sypl15-722Xzx [facility] HospitalComment on above:Performed By: #### CVDTBH #### [facility] [address] [place] [address] Dr. Doreen BetancourtPotassium [Moles/Vol]3.4 mmol/LCritically low3.5-5.1The [facility] HospitalComup [facility] on above:Performed By: #### CVDTBH #### [facility] [address] [place] [address] Dr. Doreen BetancourtSodium [Moles/Vol]134 mmol/LCritically lvn884-852Ohp [facility] HospitalComment on above:Performed By: #### CVDTBH #### [facility] [address] [place] [address] Dr. Doreen BetancourtUrea nitrogen [Mass/Vol]6.0 mg/dLCritically low7.0-18.0[facility] on above:Performed By: #### CVDTBH #### [facility] [address] [place] [address] Dr. Doreen BetancourtUrea nitrogen/Creatinine [Mass ratio]11.3 mg/mgNormalThe [facility] HospitalComup [facility] on above:Performed By: #### CVDTBH #### [facility] [address] [place] [address] Dr. Doreen Keller AUTO DIFFon 30-29-1999LJYP #0.0 103/ulNormal0.0-0.1[facility] on above:Performed By: #### MG, CMP #### [facility] [address] [place] [address] Dr. Doreen BetancourtBasophils/100 WBC (Bld)0.1 %Critically low0.2-2.0The [facility] HospitalComment on above:Performed By: #### MG, CMP #### [facility] [address] [place] [address] Dr. Doreen Everett #0.0 103/ulNormal0.0-0.7The [facility] HospitalComment on above: Performed By: #### MG, CMP #### [facility] [address] [place] [address] Dr. Doreen Gregoryosinophils/100 WBC (Bld)0.0 %Critically low0.9-7.0The [facility] HospitalComment on above:Performed By: #### MG, CMP #### [facility] [address] [place] [address] Dr. Doreen Gregoryrythrocyte distribution width (RBC) [Ratio]13.0 %Opkgrd04.0-15.0 The [facility] HospitalComment on above:Performed By: #### MG, CMP #### [facility] [address] [place] [address] Dr. Doreen BetancourtHematocrit (Bld) [Volume fraction]35.6 %Critically low36.0-48.0 The [facility] HospitalComment on above:Performed By: #### MG, CMP #### [facility] [address] [place] [address] Dr. Doreen BetancourtHemoglobin (Bld) [Mass/Vol]11.5 g/dLCritically low12.0-16.0The [facility]Com[facility] on above:Performed By: #### MG, CMP #### [facility] [address] [place] [address] Dr. Doreen Shepherd #0.02 10e3/ulNormal0.00-0.03The [facility] HospitalComment on above:Performed By: #### MG, CMP #### [facility] [address] [place] [address] Dr. Doreen Shepherd %0.2 %Normal0.0-0.5The [facility] HospitalComment on above: Performed By: #### MG, CMP #### [facility] [address] [address] [address] Doreen Kaiser #1.3 103/ulNormal1.2-3.8The [facility] HospitalComment on above:Performed By: #### MG, CMP #### [facility] [address] [address] [address] Doreen Nunezmphocytes/100 WBC (Bld)12.4 %Critically low20.5-60.0The [facility] HospitalComment on above:Performed By: #### MG, CMP #### [facility] [address] [place] [address] Dr. Doreen Yusuf DIFF REQNONormalThe [facility] HospitalComment on above: Performed By: #### MG, CMP #### [facility] [address] [place] [address] Dr. Doreen Stearns (RBC) [Entitic mass]29.9 xsModlfy16.7-34.0The [facility] HospitalComment on above:Performed By: #### MG, CMP #### [facility] [address] [place] [address] Dr. Doreen Stearns (RBC) [Mass/Vol]32.3 g/zIKwlwct05.9-35.2The [facility] HospitalComment on above:Performed By: #### MG, CMP #### [facility] [address] [place] [address] Dr. Doreen Stearns (RBC) [Entitic vol]92.7 fSYusoyg06.0-99.0The [facility] HospitalComment on above:Performed By: #### MG, CMP #### [facility] [address] [place] [address] Dr. Doreen Cheema #0.9 103/ulCritically high0.3-0.8The [facility] Comment on above:Performed By: #### MG, CMP #### [facility] [address] [place] [address] Dr. Doreen Ruizocytes/100 WBC (Bld)8.8 %Normal1.7-12.0The [facility] Comment on above:Performed By: #### MG, CMP #### [facility] [address] [place] [address] Dr. Doreen Brar #8.3 103/ulCritically high1.4-6.5The [facility] Comment on above:Performed By: #### MG, CMP #### [facility] [address] [place] [address] Dr. Doreen Wrenutrophils/100 WBC (Bld)78.5 %Critically high43.0-75.0The [facility] HospitalComment on above:Performed By: #### MG, CMP #### [facility] [address] [place] [address] Dr. Doreen Basilio mean volume (Bld) [Entitic vol]10.6 fLNormal9.5-13.5The [facility] HospitalComment on above:Performed By: #### MG, CMP #### [facility] [address] [place] [address] Dr. Doreen DurantT218 103/ixYxzqfr092-354Txg [facility] HospitalComment on above: Performed By: #### MG, CMP #### [facility] [address] [place] [address] Dr. Doreen BetancourtRBC3.84 106/ulCritically low4.20-5.40The [facility] HospitalComment on above:Performed By: #### MG, CMP #### [facility] [address] [place] [address] Dr. Doreen BetancourtWBC10.6 103/ulNormal4.0-11.0The [facility] HospitalComment on above:Performed By: #### MG, CMP #### [facility] [address] [place] [address] Dr. Doreen Silva CHEM 8 (BAS METB)on 02-14-1426Erjei gap [Moles/Vol]9.4 mmol/LNormalThe [facility] HospitalComment on above:Performed By: #### MG, CMP #### [facility] [address] [place], [place] [address] Dr. Doreen BetancourtCalcium [Mass/Vol]8.4 mg/dLCritically low8.5-10.1The [facility] HospitalComment on above:Performed By: #### MG, CMP #### [facility] [address] [place] [address] Dr. Doreen BetancourtChloride [Moles/Vol]105 mmol/DFvwhjs61-117Puy [facility] Comment on above:Performed By: #### MG, CMP #### [facility] [address] [place] [address] Dr. Doreen BetancourtCO2 [Moles/Vol]25.1 mmol/EByexqo05.0-32.0The [facility] Comment on above:Performed By: #### MG, CMP #### [facility] [address] [place] [address] Dr. Doreen BetancourtCreatinine [Mass/Vol]0.50 mg/dLCritically low0.55-1.02The [facility] HospitalComment on above:Performed By: #### MG, CMP #### [facility] [address] [place] [address] Dr. Logan ChangEGFR-AF EQUATORIAL GUINEAN>60Normal>=60The [facility] HospitalComment on above:Performed By: #### MG, CMP #### [facility] [address] [place] [address] Dr. Doreen GregoryGFR-NON AF EQUATORIAL GUINEAN>60Normal>=60The [facility] HospitalComment on above:Performed By: #### MG, CMP #### [facility] [address] [place] [address] Dr. Doreen BetancourtGlucose [Mass/Vol]114 mg/dLCritically aomp05-004Hia [facility] HospitalComment on above:Performed By: #### MG, CMP #### [facility] [address] [place] [address] Dr. Doreen BetancourtPotassium [Moles/Vol]3.5 mmol/LNormal3.5-5.1The [facility] Comment on above:Performed By: #### MG, CMP #### [facility] [address] [address] [address] Doreen Maderadium [Moles/Vol]136 mmol/FDxyfkj668-540Epy [facility] Comment on above:Performed By: #### MG, CMP #### [facility] [address] [place] [address] Dr. Doreen Copeland nitrogen [Mass/Vol]6.0 mg/dLCritically low7.0-18.0The [facility] HospitalComment on above:Performed By: #### MG, CMP #### [facility] [address] [place] [address] Dr. Doreen Copeland nitrogen/Creatinine [Mass ratio]12.0 mg/mgNormalThe [facility] HospitalComment on above:Performed By: #### MG, CMP #### [facility] [address] [place] [address] Dr. Doreen Keller AUTO DIFFon 22-13-5396MUYI #0.1 103/ulNormal0.0-0.1The [facility] HospitalComment on above:Performed By: #### MG, CMP #### [facility] [address] [place] [address] Dr. Doreen BetancourtBasophils/100 WBC (Bld)0.8 %Normal0.2-2.0[facility] Comment on above:Performed By: #### MG, CMP #### [facility] [address] [place] [address] Dr. Doreen Everett #0.1 103/ulNormal0.0-0.7The [facility] HospitalComment on above: Performed By: #### MG, CMP #### [facility] [address] [place] [address] Dr. Doreen Gregoryosinophils/100 WBC (Bld)1.8 %Normal0.9-7.0The [facility] Comment on above:Performed By: #### MG, CMP #### [facility] [address] [place] [address] Dr. Doreen Gregoryrythrocyte distribution width (RBC) [Ratio]13.0 %Wncuzi57.0-15.0 The [facility] HospitalComment on above:Performed By: #### MG, CMP #### [facility] [address] [place] [address] Dr. Doreen BetancourtHematocrit (Bld) [Volume fraction]42.1 %Ubvrfa17.0-48.0The [facility] HospitalComment on above:Performed By: #### MG, CMP #### [facility] [address] [place] [address] Dr. Doeren BetancourtHemoglobin (Bld) [Mass/Vol]13.4 g/zQMtojhm69.0-16.0The [facility] HospitalComment on above:Performed By: #### MG, CMP #### [facility] [address] [place] [address] Dr. Doreen Shepherd #0.02 10e3/ulNormal0.00-0.03The [facility] HospitalComment on above:Performed By: #### MG, CMP #### [facility] [address] [place] [address] Dr. Doreen Shepherd %0.3 %Normal0.0-0.5The [facility] HospitalComment on above: Performed By: #### MG, CMP #### [facility] [address] [place] [address] Dr. Doreen Kaiser #2.1 103/ulNormal1.2-3.8The [facility] HospitalComment on above:Performed By: #### MG, CMP #### [facility] [address] [place] [address] Dr. Doreen Camachohocytes/100 WBC (Bld)31.6 %Hllqmp36.5-60.0The [facility] HospitalComment on above:Performed By: #### MG, CMP #### [facility] [address] [place] [address] Dr. Doreen DixonUAL DIFF REQNONormalThe [facility] HospitalComment on above: Performed By: #### MG, CMP #### [facility] [address] [place] [address] Dr. Doreen Tapia (RBC) [Entitic mass]30.2 lyKqgydq06.7-34.0The [facility] HospitalComment on above:Performed By: #### MG, CMP #### [facility] [address] [place] [address] Dr. Doreen Stearns (RBC) [Mass/Vol]31.8 g/dBNmfnry56.9-35.2The [facility] HospitalComment on above:Performed By: #### MG, CMP #### [facility] [address] [place] [address] Dr. Doreen Stearns (RBC) [Entitic vol]95.0 nLSlwlhd77.0-99.0The [facility] HospitalComment on above:Performed By: #### MG, CMP #### [facility] [address] [place] [address] Dr. Doreen Cheema #0.4 103/ulNormal0.3-0.8The [facility] HospitalComment on above:Performed By: #### MG, CMP #### [facility] [address] [place] [address] Dr. Doreen Ruizocytes/100 WBC (Bld)6.2 %Normal1.7-12.0The [facility] Comment on above:Performed By: #### MG, CMP #### [facility] [address] [place] [address] Dr. Doreen Brar #3.9 103/ulNormal1.4-6.5The [facility] HospitalComment on above:Performed By: #### MG, CMP #### [facility] [address] [place] [address] Dr. Doreen Wrenutrophils/100 WBC (Bld)59.3 %Pkiazy35.0-75.0The [facility] HospitalComment on above:Performed By: #### MG, CMP #### [facility] [address] [place] [address] Dr. Doreen Goldsteinlet mean volume (Bld) [Entitic vol]10.2 fLNormal9.5-13.5The [facility] HospitalComment on above:Performed By: #### MG, CMP #### [facility] [address] [place] [address] Dr. Doreen BetancourtPLT276 103/acMlcjqo759-119Amo [facility] HospitalComment on above: Performed By: #### MG, CMP #### [facility] [address] [place] [address] Dr. Doreen BetancourtRBC4.43 106/ulNormal4.20-5.40The [facility] HospitalComment on above:Performed By: #### MG, CMP #### [facility] [address] [place] [address] Dr. Doreen BetancourtWBC6.6 103/ulNormal4.0-11.0The [facility] HospitalComment on above: Performed By: #### MG, CMP #### [facility] [address] [place] [address] Dr. Doreen BetancourtCovid-19 PCR ([facility])on 02-75-4107EZEF-CoV-2 (COVID-19) RNA MARIVEL+probe Ql (Unsp spec)Not detectedNormalNOT DETECTEDThe [facility] Comment on above:Result Comment: When diagnostic testing is negative, the [...] for this test is supported by the Neurourologist of Health and Human Service's declaration that circumstances exist to justify the emergency use of in vitro diagnostics for the detection and/or diagnosis of the virus that causes COVID-19. This EUA will remain in effect for the duration of the COVID-19 declaration justifying emergency of IVDs, unless it is terminated or revoked by the FDA (after which the test may no longer be used).Performed By: #### MG, CMP #### [facility] [address] [place] [address] Dr. Doreen BetancourtTYPE AND SCREENon 63-57-1336TRJI AND SCREENNegativeNormalThe [facility] HospitalComment on above:Performed By: #### MG, CMP #### [facility] [address] [place] [address] Dr. Doreen Cobian 17-78-9665LZM4.9 ng/mLCritically high0.0-4.7The [facility] HospitalComment on above:Result Comment: Nonsmokers <3.9 Smokers <5.6 . [employer] Electrochemiluminescence Immunoassay (ECLIA) . Values obtained with different assay methods or kits cannot be used interchangeably. Results cannot be interpreted as absolute evidence of the presence or absence of malignant disease.Performed By: #### MG, CMP #### [facility] [address] [place] [address] Dr. Doreen BetancourtPROF 14(COMP METB)on 12-79-9686Yzgpsao [Mass/Vol]3.6 g/dLNormal 3.4-5.0[facility] HospitalComment on above:Performed By: #### MG, CMP #### [facility] [address] [place] [address] Dr. Doreen BetancourtAlbumin/Globulin [Mass ratio]1.1 {ratio}NormalThe [facility] HospitalComment on above:Performed By: #### MG, CMP #### [facility] [address] [place] [address] Dr. Doreen Lopez [Catalytic activity/Vol]76 U/JUvcasi72-584Nmi [facility] HospitalComment on above:Performed By: #### MG, CMP #### [facility] [address] [place] [address] Dr. Doreen Friend [Catalytic activity/Vol]18 U/CCotirv19-18Yun [facility] HospitalComment on above:Performed By: #### MG, CMP #### [facility] [address] [place] [address] Dr. Doreen Cifuentes gap [Moles/Vol]12.7 mmol/LNormalThe [facility] Comment on above:Performed By: #### MG, CMP #### [facility] [address] [address] [address] Doreen BetancourtAST [Catalytic activity/Vol]15 U/RXxmfco26-44Mly [facility] HospitalComment on above:Performed By: #### MG, CMP #### [facility] [address] [place] [address] Dr. Doreen BetancourtBilirubin [Mass/Vol]0.3 mg/dLNormal0.2-1.0The [facility] Comment on above:Performed By: #### MG, CMP #### [facility] [address] [place] [address] Dr. Doreen BetancourtCalcium [Mass/Vol]8.8 mg/dLNormal8.5-10.1The [facility] Comment on above:Performed By: #### MG, CMP #### [facility] [address] [place] [address] Dr. Doreen BetancourtChloride [Moles/Vol]104 mmol/WFnwdip39-465Cpu [facility] Comment on above:Performed By: #### MG, CMP #### [facility] [address] [place] [address] Dr. Doreen BetancourtCO2 [Moles/Vol]25.5 mmol/ALxwhbx54.0-32.0The [facility] Comment on above:Performed By: #### MG, CMP #### [facility] [address] [place] [address] Dr. Doreen BetancourtCreatinine [Mass/Vol]0.61 mg/dLNormal0.55-1.02The [facility] HospitalComment on above:Performed By: #### MG, CMP #### [facility] [address] [place] [address] Dr. Logan ChangEGFR-AF EQUATORIAL GUINEAN>60Normal>=60The [facility] HospitalComment on above:Performed By: #### MG, CMP #### [facility] [address] [place] [address] Dr. Doreen GregoryGFR-NON AF EQUATORIAL GUINEAN>60Normal>=60The [facility] HospitalComment on above:Performed By: #### MG, CMP #### [facility] [address] [address] [address] Doreen BetancourtGlobulin (S) [Mass/Vol]3.3 g/dLNormSt. Elizabeth HospitalComment on above:Performed By: #### MG, CMP #### [facility] [address] [place] [address] Dr. Doreen BetancourtGlucose [Mass/Vol]93 mg/mIImixfq69-353Egr [facility] Comment on above:Performed By: #### MG, CMP #### [facility] [address] [place] [address] Dr. Doreen BetancourtPotassium [Moles/Vol]4.2 mmol/LNormal3.5-5.1The [facility] Comment on above:Performed By: #### MG, CMP #### [facility] [address] [place] [address] Dr. Doreen BetancourtProtein [Mass/Vol]6.9 g/dLNormal6.4-8.2The [facility] Comment on above:Performed By: #### MG, CMP #### [facility] [address] [address] [address] Doreen BetancourtSodium [Moles/Vol]138 mmol/JLvklvj054-137Ddf [facility] Comment on above:Performed By: #### MG, CMP #### [facility] [address] [place] [address] Dr. Doreen BetancourtUrea nitrogen [Mass/Vol]17.0 mg/dLNormal7.0-18.0The [facility] HospitalComment on above:Performed By: #### MG, CMP #### [facility] [address] [place] [address] Dr. Doreen Copeland nitrogen/Creatinine [Mass ratio]27.9 mg/mgNoTrinity Health System East CampusComment on above:Performed By: #### MG, CMP #### [facility] [address] [place] [address] Dr. Doreen BetancourtCT ABD/PELV W CONon 06-84-1523PO ABD/PELV W CONEXAMINATION: CT ABD/PELV W CON HISTORY: Primary malignant neoplasm of [...] Electronically authenticated by: NEDA COULTER Date: 2022-03-27 17:13NoTrinity Health System East CampusCovid-19 PCR (CVDTBH)on [id number]-CoV-2 (COVID-19) RNA MARIVEL+probe Ql (Unsp spec)Not detectedNormalNOT DETECTEDThe [facility] Comment on above:Result Comment: This test is not yet approved or cleared by the [place] FDA. When there are no FDA-approved or cleared tests available, and other criteria are met, FDA can make tests available under an emergency access mechanism called an Emergency Use Authorization (EUA). The EUA for this test is supported by the Neurourologist of Health and Human Service's (HHS's) declaration that circumstances exist to justify the emergency use of in vitro diagnostics for the detection and/or diagnosis of the virus that causes COVID- 19. This EUA will remain in effect (meaning [...] of clinical signs and symptoms consistent with SARS-CoV-2.Performed By: #### MG, CMP #### [facility] [address] [place] [address] Dr. Doreen BetancourtCT ABD/PELV W CONon [id number] ABD/PELV W CONEXAMINATION: CT ABD/PELV W CON HISTORY: Abdominal pain ; left [...] Electronically authenticated by: NEDA COULTER Date: 2022-01-09 17:53[facility] HospitalCoding Summaryon [id number] SummaryHTMLBase 64 PkdlfzooNNs8qPp+PGhlYWQ+[id number]bQD4XUrgP1Pk biAv [file] [facility] (more content not included)...[facility] CenterED Clinical Summaryon [id number] [facility] [address] [place], [place] [id number] Clinical Summary PERSON INFORMATION Name: MARYSOL JACOBSON Age: 56 Years Sex: FEMALE : 1965 MRN: Acct#: Visit Reason: Wrist laceration; LEFT WRIST LAC Arrival: 04/21/2021 17:52:39 Discharge: 04/21/2021 18:47:00 LOS: 000 00:55 Check In: 04/21/2021 17:52:39 Checkout: 04/21/2021 18:47:00 Address: [address] [place] [id number] PCP: Sandro Chin MD PROVIDER INFORMATION Provider [...] PATIENT EDUCATION INFORMATION Instructions: Laceration Care, Adult, Utus-yj-Rjxu Follow-Up: With: Address: When: Sandro Chin [address] [place] [address], [facility] [place] [address] [facility] (1) Within 3 to 5 days Comments: Please follow-up with Dr. Chin, call the office schedule an appointment to be seen in 3 to 5 days for wound check, please take your Augmentin as prescribed, keep the wound clean, apply bacitracin and keep it covered, have sutures removed in 10 to 12 days from today, take xcbt-aoa-xlsobdx pain medication as needed, and return back to the urgent care center for any worsening symptoms, concerns, orcomplications. DIAGNOSIS: 1:Laceration of left wrist Patient Understands: Yes - Patient/family/caregiver verbalizes understanding of instructions given Comment:[facility] CenterED Patient Summaryon [id number] Patient Summary [facility] ? Urgent Care [address] [place] [address] PATIENT DISCHARGE INSTRUCTIONS Patient Information Name: MARYSOL JACOBSON Age: 56 Years Date of : 1965 Reason For Visit: Wrist laceration; LEFT WRIST LAC Arrival Time: 04/21/2021 17:52:39 Primary Care Physician: Sandro Chin MD Attending Physician: Leo Art PA-C Comment: Patient Education With: Address: When: Sandro Chin [address] [place] [address], [facility] [place] [address] Business (1) Within 3 to 5 days Comments: Please follow-up with Dr. Chin, call the office schedule an appointment to be seen in 3 to 5 days for wound check, please take your Augmentin as prescribed, keep the wound clean, apply bacitracin and keep it covered, have sutures removed in 10 to 12 days from today, take meav-jed-onhyuqg pain medication as needed, and return back to the urgent care center for any worsening symptoms, concerns, orcomplications. Laceration Care, Adult A laceration is a [...] needed: ? Soap. ? Water. ? Hand appliances sample maker. ? Bandage (dressing). ? Antibiotic ointment. ? Clean towel. How to take care of your cut Wash your hands with soap and water before touching your wound or changing your bandage. If soap and water are not available, use hand appliances sample maker. If your doctor used stitches or yuridia: [...] off the skin. General instructions ? Take pwar-fdt-csvffjo and prescription medicines only as told by [...] told by your doctor (more content not included)...[facility] CenterProess Note - Nurseon [id number] Note - Nursesutured wound cleaned, bacitracin applied and a bandage, pt tolerated well [Electronically Signed on: 04/21/2021 18:57 EDT] Lauren Boyer [Verified on: 04/21/2021 18:57 EDT] Andrea BoyerGuernsey [facility] HospitalUrgent Care Recordon [id number] [address] [id number] PATIENT DISCHARGE INSTRUCTIONS Patient Information Name: MARYSOL JACOBSON Age: 56 Years Date of : 1965 [facility]: [id number] Reason For Visit: Wrist laceration; LEFT WRIST LAC Arrival Time: 04/21/2021 17:52:39 Primary Care Physician: Sandro Chin MD Attending Physician: Leo Art PA-C Comment: Visit Diagnosis: Diagnoses This Visit Laceration of left wrist (S61.512A) Wrist laceration ([id number]) If you received any narcotics, sedation, or [...] legal documents With: Address: When: Sandro Chin [address] [place] [address] Business (1) Within 3 to 5 days Comments: Please follow-up with Dr. Chin, call the office schedule an appointment to be seen in 3 to 5 days for wound check, please take your Augmentin as prescribed, keep the wound clean, apply bacitracin and keep it covered, have sutures removed in 10 to 12 days from today, take wlvt-nfv-ldmgitk pain medication as needed, and return back to the urgent care center for any worsening symptoms, concerns, orcomplications. Medication Information: The exam and treatment you received today in the [facility] were for an urgent problem and are not intended as complete care. It is important for you to follow up with a doctor, nurse practitioner, or physician?s lens assistant for ongoing care. If your symptoms [...] so we can reach you if necessary. [facility] has provided you with a complete list of medications post discharge. 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 Any specific questions regarding your chronic medications and dosages should be discussed with your primary care physician(s) and/or pharmacist. New Medications [facility] [address] [place], [place] [id number], [phone] amoxicillin-clavulanate (Augmentin 875 mg-125 mg oral tablet) [...] needed: ? Soap. ? Water. ? Hand appliances sample maker. ? Bandage (dressing). ? Antibiotic ointment. ? Clean towel. How to take care of your cut Wash your hands with soap and water before touching your wound or changing your bandage. If soap and water ar (more content not included)...[facility] Vital Signs Date TimeVital SignValuePerforming OpruandudVkxxljyt92-51-1945 13:13-0400Body nwxiakotyfu08.7 [degF]Sandro Chin MD Work Phone: [phone]09-29-2025 13:13-0400 Body .57 kgSandro Chin MD Work Phone: [phone])45734 [address]09-29-2025 13:13-0400 Diastolic blood ybxqaxbm83 mm[Hg]Sandro Chin MD Work Phone: [phone])[address]09-29-2025 13:13-0400 Heart rate69 /Mayur Chin MD Work Phone: [phone])796[address]09-29-2025 13:13-0400 Respiratory rate16 /Mayur Chin MD Work Phone: [phone])70234 [address]09-29-2025 13:13-0400 SaO2% (BldA) [Mass fraction]98 %Sandro Chin MD Work Phone: [phone] [place], [place] [address]809-29-2025 13:13-0400 Systolic blood skdyemsk859 mm[Hg]Sandro Chin MD Work Phone: [phone])[address]09-15-2025 13:10-0400 Body yfmrio12.93 kgSandro Chin MD Work Phone: [phone])[address]09-15-2025 13:10-0400 Diastolic blood yoapplsd38 mm[Hg]Sandro Chin MD Work Phone: [phone])[address]09-15-2025 13:10-0400 Heart rate69 /Mayur Chin MD Work Phone: [phone])[address]34 [address]09-15-2025 13:10-0400 Respiratory rate20 /Mayur Chin MD Work Phone: [phone])[address] [place], [place] 137[address]009-15-2025 13:10-0400 SaO2% (BldA) [Mass fraction]99 %Sandro Chin MD Work Phone: [phone])[address] [place], [place] 137[address]009-15-2025 13:10-0400 Systolic blood rnqdcqyu918 mm[Hg]Sandro Chin MD Work Phone: [phone])[address] [place], [place] 1379007-29-2025 09:55-0400 Diastolic blood djmhxeyq89 mm[Hg]Sandro Chin MD Work Phone: [phone])[address] [place], [place] 1379007-29-2025 09:55-0400 Heart rate60 /Mayur Chin MD Work Phone: [phone])[address] [place], [place] 1379007-29-2025 09:55-0400 Respiratory rate16 /Mayur Chin MD Work Phone: [phone])[address] [place], [place] 1379007-29-2025 09:55-0400 SaO2% (BldA) [Mass fraction]98 %Sandro Chin MD Work Phone: [phone])[address] [place], [place] 1379007-29-2025 09:55-0400 Systolic blood czrahuxo79 mm[Hg]Sandro Chin MD Work Phone: [phone])[address] [place], [place] 137[address]007-29-2025 08:44-0400 Body xhqisq910.56 cmSandro Chin MD Work Phone: [phone])[address] [place], [place] 137[address]007-29-2025 08:44-0400 Body .02 kgSandro Chin MD Work Phone: [phone])[address] [place], [place] 1379006-17-2025 08:32-0400 Body mass index (BMI) [Ratio]27.29 kg/x4WkwxiyConstantino Martinez MD Work Phone: [facility] SystemFrngckysqq07-81-3398 08:32-0400Body winxkh01.12 kgConstantino Martinez MD Work Phone: [facility] SystemNudgrsmiex78-66-4026 08:32-0400Diastolic blood pjsgdmug095 mm[Hg]Constantino Martinez MD Work Phone: [facility] SystemOixfgrtktg36-58-4236 08:32-0400Heart rate68 /min Constnatino Martinez MD Work Phone: [facility] SystemLwkmcsfzqs26-27-5487 08:32-0400Systolic blood ddptowwb706 mm[Hg]Constantino Martinez MD Work Phone: [phone] SystemRdkytpcmsz55-53-5507 10:41-0400Body pnwxry576.56 cmSandro Chin MD Work Phone: [phone]06-16-2025 10:41-0400 Body mass index (BMI) [Ratio]27.6 kg/s5NogkphSandro Chni MD Work Phone: [phone]06-16-2025 10:41-0400 Body fbzavu12.02 kgSandro Chin MD Work Phone: [phone]06-16-2025 10:41-0400 Diastolic blood blnznbsi50 mm[Hg]Sandro Chin MD Work Phone: [phone]06-16-2025 10:41-0400 Heart rate64 /minSandro Chin MD Work Phone: [phone]06-16-2025 10:41-0400 Systolic blood nrxbewuf121 mm[Hg]Sandro Chin MD Work Phone: [phone]06-10-2025 09:33-0400 Body gtbedn658.56 cmSelect [facility]06-10-2025 09:33-0400Body mass index (BMI) [Ratio]27.6 kg/s8MdrjqmxhnSelect Medical Specialty Hospital [facility]06-10-2025 09:33-0400Body uzheja10.08 kgSelect [facility]06-10-2025 09:33-0400Diastolic blood itlxqmty90 mm[Hg][facility] 12-14-2024 09:33-0400Heart rate58 /[facility] 12-14-2024 09:33-0400Systolic blood azoymcvj992 mm[Hg][facility]03-03-2025 12:58-0500Body esgvzr014.56 cmMicarleth Alejandros DO Work Phone: [address] [place], [place] 434[address]03-03-2025 12:58-0500 Body mass index (BMI) [Ratio]28.8 kg/w1Kiilcqp Monicoillis DO Work Phone: [phone])[address] [place], [place] 434[address]03-03-2025 12:58-0500 Body zqumprtlsds84.5 [degF]Clint Alejandros DO Work Phone: [phone])[address] [place], [place] 4341203-03-2025 12:58-0500 Body .2 kgMicarleth Alejandros DO Work Phone: [phone])[address] [place], [place] 4341203-03-2025 12:58-0500 Diastolic blood oddqrlle36 mm[Hg]Clint Jean Baptiste DO Work Phone: [phone])[address] [place], [place] 4341203-03-2025 12:58-0500 Heart rate58 /minClint Marcillis DO Work Phone: [phone])[address] [place], [place] 434[address]03-03-2025 12:58-0500 Respiratory rate16 /minClint Marcillis DO Work Phone: [address] [place], [place] 434[address]03-03-2025 12:58-0500 SaO2% (BldA) [Mass fraction]99 %Clint Alejandroignacio DO Work Phone: [phone])[address] [place], [place] 4341203-03-2025 12:58-0500 Systolic blood wnymofqp198 mm[Hg]Clint Alejandros DO Work Phone: [phone])[address] [place], [place] 4341212-26-2024 10:59-0500 Body kmfucw879.56 cmMicarleth Alejandros DO Work Phone: [address] [place], [place] 434[address]12-26-2024 10:59-0500 Body mass index (BMI) [Ratio]28.8 kg/q7AnyacxxClint Marcillis DO Work Phone: [facility]12-26-2024 10:59-0500 Body qttolo08.2 kgClint Marcillis DO Work Phone: [facility]12-26-2024 10:59-0500 Diastolic blood mm[Hg]Clint Jean Baptiste DO Work Phone: [phone]12-26-2024 10:59-0500 Heart rate64 /minClint Marcillis DO Work Phone: [address] [place], [place] [address]012-26-2024 10:59-0500 Systolic blood nepsjylo820 mm[Hg]Clint Jean Baptiste DO Work Phone: [facility]09-19-2024 11:29-0400 Body jowsul549.6 cmMasha Howard PLUMBING DRAFTER-HANGAR ATTENDANT Work Phone: [facility]09-19-2024 11:29-0400Body mass index (BMI) [Ratio]27.5 kg/q6WjlrhciMasha Howard PLUMBING DRAFTER-HANGAR ATTENDANT Work Phone: [facility]09-19-2024 11:29-0400Body hdejub43.67 kgMasha Howard PLUMBING DRAFTER-HANGAR ATTENDANT Work Phone: [facility]09-19-2024 11:29-0400Diastolic blood eghmnwtc97 mm[Hg]Masha Reynaoll PLUMBING DRAFTER-HANGAR ATTENDANT Work Phone: [facility]09-19-2024 11:29-0400Heart rate 54 /minMasha Howard PLUMBING DRAFTER-HANGAR ATTENDANT Work Phone: [facility]09-19-2024 11:29-0400Systolic blood isvpgrop858 mm[Hg]Masha Howard PLUMBING DRAFTER-HANGAR ATTENDANT Work Phone: [facility]09-09-2024 13:50-0400Body .6 cmClint Marcillis DO Work Phone: [facility]09-09-2024 13:50-0400Body mass index (BMI) [Ratio]27.46 kg/o5Tbylxkx Grillis DO Work Phone: [facility]09-09-2024 13:50-0400Body trzzgi30.58 kgMichael Grillis DO Work Phone: [facility]08-28-2024 10:26-0400Body emnqom695.6 cmMichael Grillis DO Work Phone: [facility]08-28-2024 10:26-0400Body mass index (BMI) [Ratio]27.46 kg/b0Plcwnbp Grillis DO Work Phone: [facility]08-28-2024 10:26-0400Body eiijdf01.58 kgMichael Monicoillis DO Work Phone: [facility]07-15-2024 11:22-0400Body rejqlr981.56 cmDO Clint Jean Baptiste Work Phone: [phone])051-[address] [place], [place] 4087407-15-2024 11:22-0400 Body mass index (BMI) [Ratio]28.8 kg/m2DO Clint Jean Baptiste Work Phone: [phone]07-15-2024 11:22-0400 Body ovagjqdsepo35 [degF]DO Clint Jean Baptiste Work Phone: 1([phone] [place], [place] 4087407-15-2024 11:22-0400 Body .2 kgDO Clint Jean Baptiste Work Phone: [phone] [place], [place] 4087407-15-2024 11:22-0400 Diastolic blood mm[Hg]DO Clint Jean Baptiste Work Phone: [phone] [place], [place] 4087407-15-2024 11:22-0400 Heart rate52 /minDO Clnit Jean Baptiste Work Phone: [phone] [place], [place] 4087407-15-2024 11:22-0400 Respiratory rate18 /minDO Clint Jean Baptiste Work Phone: 1(094)[address]07-15-2024 11:22-0400 SaO2% (BldA) [Mass fraction]99 %DO Clint Alejandros Work Phone: 1(749)[address]07-15-2024 11:22-0400 Systolic blood yrdregfu846 mm[Hg]DO Clint Alejandros Work Phone: 1(093)[address]05-13-2024 09:37-0400 Body ccnyiw069.56 cmDO Clint Alejandros Work Phone: 1(557)[address]05-13-2024 09:37-0400 Body mass index (BMI) [Ratio]28.8 kg/m2DO Clint Alejandros Work Phone: 1(598)[address] [place], [place] 4341205-13-2024 09:37-0400 Body .2 kgDO Clint Alejandros Work Phone: 1(488)[address] [place], [place] 4341205-13-2024 09:37-0400 Diastolic blood olaaxqmk70 mm[Hg]DO Clint Alejandros Work Phone: 1(910)[address]05-13-2024 09:37-0400 Heart rate60 /MagdalenaO Clint Jean Baptiste Work Phone: 1(438)[address]05-13-2024 09:37-0400 Systolic blood nhujzzvf892 mm[Hg]DO Clint Jean Baptiste Work Phone: 1(403)39068 [address]03-22-2024 10:34-0400 Body .56 cmDO Clint Alejandros Work Phone: 1(649)[address]03-22-2024 10:34-0400 Body mass index (BMI) [Ratio]28.8 kg/m2DO Clint Alejandros Work Phone: 1(721)[address]03-22-2024 10:34-0400 Body hjuqil61.2 kgDO Clint Alejandros Work Phone: 1(343)[address]03-22-2024 10:34-0400 Diastolic blood yizfqzaq68 mm[Hg]DO Clint Alejandros Work Phone: 1(993)27[address]03-22-2024 10:34-0400 Heart rate63 /Chiqui Alejandros Work Phone: 1(220)[address]03-22-2024 10:34-0400 Respiratory rate18 /Chiqui Alejandros Work Phone: 1(203)[address]03-22-2024 10:34-0400 SaO2% (BldA) [Mass fraction]97 %DO Clint Alejandros Work Phone: 1(529)[address]03-22-2024 10:34-0400 Systolic blood ikzxguby866 mm[Hg]DO Clint Alejandros Work Phone: 1(503)[address] [place], [place] 4341212-20-2023 11:13-0500 Diastolic blood ekefzmqv76 mm[Hg]DO Clint Alejandros Work Phone: 1(683)[address] [place], [place] 4341212-20-2023 11:13-0500 Heart rate78 /Chiqui Alejandros Work Phone: 1(168)[address] [place], [place] 4341212-20-2023 11:13-0500 Respiratory rate20 /Chiqui Alejandros Work Phone: 1(722)[address] [place], [place] 4341212-20-2023 11:13-0500 SaO2% (BldA) [Mass fraction]98 %DO Clint Alejandros Work Phone: 1(571)[address] [place], [place] 4341212-20-2023 11:13-0500 Systolic blood mm[Hg]DO Clint Alejandros Work Phone: 1(451)[address]11-13-2023 11:15-0500 Body mqnecq519.56 cmSandro Chin Other [place] mcTEL Other [id number] 11:15-0500Body mass index (BMI) [Ratio] 28.56 kg/v5WsxqbjSandro Chin Other [facility] Other 11-13-2023 11:15-0500Body fmyjeh32.48 kgSandro Chin Other [place] mcTEL Other 11-13-2023 11:15-0500Diastolic blood vxbgiykm29 mm[Hg] Sandro Giuseppe Other [place] mcTEL Other 11-13-2023 11:15-0500Systolic blood karebsbu622 mm[Hg] Sandro Giuseppe [facility] Other 09-18-2023 10:41-0400Body lpjpmdxbuay46.4 [degF]DO Clint Jean Baptiste Work Phone: [facility]02-27-2023 08:36-0500 Body hafwpezhnhx80 [degF]DO Isaías Adamowicz II Work Phone: [facility]02-27-2023 08:36-0500 Body .6 kgDO Isaías Adamowicz II Work Phone: [facility]02-27-2023 08:36-0500 Diastolic blood lefynqpq70 mm[Hg]DO Isaías Adamowicz II Work Phone: [facility]02-27-2023 08:36-0500 Heart rate65 /minDO Isaías Adamowicz II Work Phone: [facility]02-27-2023 08:36-0500 Respiratory rate20 /minDO Isaías Adamowicz II Work Phone: [facility]02-27-2023 08:36-0500 SaO2% (BldA) [Mass fraction]99 %DO Isaías Adamowicz II Work Phone: [facility]02-27-2023 08:36-0500 Systolic blood uqurpyqc838 mm[Hg]DO Isaías Adamowicz II Work Phone: [facility]02-13-2023 08:43-0500 Body xktlzdanpwl62.1 [degF]DO Isaías Adamowicz II Work Phone: [facility]02-13-2023 08:43-0500 Body inxdvw69.9 kgDO Isaías Adamowicz II Work Phone: [facility]02-13-2023 08:43-0500 Diastolic blood mm[Hg]DO Isaías Adamowicz II Work Phone: [facility]02-13-2023 08:43-0500 Heart rate60 /minDO Isaías Adamowicz II Work Phone: [facility]02-13-2023 08:43-0500 Respiratory rate20 /minDO Isaías Adamowicz II Work Phone: [facility]02-13-2023 08:43-0500 SaO2% (BldA) [Mass fraction]100 %DO Isaías Adamowicz II Work Phone: [facility]02-13-2023 08:43-0500 Systolic blood klhbozci624 mm[Hg]DO Isaías Adamowicz II Work Phone: [facility]01-16-2023 09:43-0500 Body cadwqbwyvcx72.8 [degF]DO Isaías Adamowicz II Work Phone: [facility]01-16-2023 09:43-0500 Body wpysdb64.7 kgDO Isaías Adamowicz II Work Phone: [facility]01-16-2023 09:43-0500 Diastolic blood kyswykoa60 mm[Hg]DO Isaías Adamowicz II Work Phone: [facility]01-16-2023 09:43-0500 Heart rate67 /minDO Isaías Adamowicz II Work Phone: [facility]01-16-2023 09:43-0500 Respiratory rate16 /minDO Isaías Jordan II Work Phone: [facility]01-16-2023 09:43-0500 SaO2% (BldA) [Mass fraction]98 %DO Isaías Jordan II Work Phone: [facility]01-16-2023 09:43-0500 Systolic blood mm[Hg]DO Isaías Jordan II Work Phone: [facility]12-21-2022 12:23-0500 Body brfcqgiidzt40.9 [degF]DO Clint Jean Baptiste Work Phone: [facility]12-21-2022 12:23-0500 Diastolic blood ptaoamlo80 mm[Hg]DO Clint Jean Baptiste Work Phone: 1(171)291-[address] [place], [place] 4087412-21-2022 12:23-0500 Heart rate60 /MagdalenaO Clint Alejandros Work Phone: 1(282)649-[address] [place], [place] 4087412-21-2022 12:23-0500 Respiratory rate18 /minDO Clint Marcdomingas Work Phone: 1(463)490-[address] [place], [place] 4087412-21-2022 12:23-0500 SaO2% (BldA) [Mass fraction]97 %DO Clint Alejandros Work Phone: [phone]12-21-2022 12:23-0500 Systolic blood wodmbzri077 mm[Hg]DO Clint Alejandros Work Phone: 1(097)075-[address] [place], [place] 4087412-19-2022 10:02-0500 Body kgDO Cilnt Alejandros Work Phone: 1(102)830-[address] [place], [place] 4087412-19-2022 09:08-0500 Body ereajudlxti85 [degF]DO Clint Alejandros Work Phone: [phone]12-19-2022 09:08-0500 Body snkofw66 kgDO Clint Alejandros Work Phone: 1(570)[address]12-19-2022 09:08-0500 Diastolic blood mm[Hg]DO Clint Alejandros Work Phone: 1(950)[address]12-19-2022 09:08-0500 Heart rate61 /MagdalenaO Clint Alejandros Work Phone: 1(351)[address]12-19-2022 09:08-0500 Respiratory rate16 /minDO Clint Alejandros Work Phone: 1(375)[address]12-19-2022 09:08-0500 SaO2% (BldA) [Mass fraction]98 %DO Clint Alejandros Work Phone: 1(721)[address] [place], [place] 4341212-19-2022 09:08-0500 Systolic blood txjoiexg824 mm[Hg]DO Clint Jean Baptiste Work Phone: 1(675)768[address]11-28-2022 08:08-0500 Body qmyxgg02.1 kgDO Clint Jean Baptiste Work Phone: 1(895)[address]11-28-2022 08:08-0500 Diastolic blood dzvodbgs76 mm[Hg]DO Clint Jean Baptiste Work Phone: 1(804)767[address]11-28-2022 08:08-0500 Heart rate56 /Chiqui Alejandros Work Phone: 1(118)255[address]11-28-2022 08:08-0500 Respiratory rate20 /minDO Clint Alejandros Work Phone: 1(458)[address]11-28-2022 08:08-0500 SaO2% (BldA) [Mass fraction]98 %DO Clint Alejandros Work Phone: 1(789)[address]11-28-2022 08:08-0500 Systolic blood kgglzyzq974 mm[Hg]DO Clint Alejandros Work Phone: 1(048)[address]10-28-2022 14:40-0400 Body uacqxl344.56 cmDO Clint Jean Baptiste Work Phone: [facility] Encounters Encounter DateEncounter TypeCare ProviderFacilityStart: 70-78-8059qtyptyllpu Isaías Jordan IIFacility:[facility]art: 04-20-2025 End: 35-86-7332opmyxdwwiaMwofmjy R NILLFacility::[id number]: 04-13-2025 End: 20-58-1058brdrmodzohHzpakdd R NILLFacility:[facility] HospitalevueStart: 04-13-2025 End: 49-98-2139Inhatwx encounter procedureMichael R NILL 135-3213Ppcpvp-PvvqwC[facility] Dee Start: 04-11-2025 End: 62-24-1609fclsueobhlPFVIXST R WEMagdasamantha [facility] Hospitaltart: 87-01-5370jtathwbzeyJiktpir NILLFacility: [place]walkStart: 04-11-2025 End: 42-77-4555ncyrkojgmlECFOZH NEREYDAChildren's Hospital [facility], [place] Springstart: 18-13-0486wdbadengvjCmbcxyo NILLFacility:[facility] HospitalueStart: 04-04-2025 End: 88-53-9061brhiuwkdwqZewtoj E Braun MD Work Phone: [facility] Work Phone: Start: 04-04-2025 End: 11-73-8396Xrbtchu encounter procedureIsaías Jordan II [facility] Ambulatory Work Phone: Start: 03-30-2025 End: 03-13-0328Hippffjk Result EncounterRandy Turner [employer] [employer] Work Phone: NOCZ External Department UnsolicitedStart: 03-30-2025 End: 28-62-8623Lcguoemx Result EncounterRandy Turner [employer] Work Phone: noms External Department UnsolicitedStart: 03-21-2025 Registered RecurringRandy Dominguezcory [facility] Work Phone: Start: 03-21-2025 End: 20-47-8959xleezfhhgxTitnwt E Braun MD Work Phone: [facility] Work Phone: Start: 03-21-2025 End: 74-74-8326Dunvnxk encounter procedureTimvanda Jordan II DO-[facility] Ambulatory Work Phone: Start: 09-54-9579Lgr-patient / Non-visitIsaías Jordan II DO-[facility] Work Phone: Start: 02-01-2025 End: 32-61-1905pbbtffrbegZmrkjd E BraunFacility:[facility] Centertart: 12-37-6364Bga-patient / Non-visitCatherine Ivory Borrego DO-[facility] Gastro Work Phone: Start: 19-47-5638Iex-patient / Non-visitSandro Chin MD-[facility] Work Phone: Start: 12-21-2024 End: 36-51-7116Arcybn flowsheetHivicky Martinez MD Work Phone: [facility] CI ENTStart: 12-21-2024 End: 81-35-8504Yaxbiq poonamheetHivicky Martinez MD Work Phone: [facility] CI ENTStart: 12-21-2024 End: 97-51-0496Puqjvs outpatient new 30 minutesHilasasha Martinez MD Work Phone: [facility] CI ENTComment on above:Globus sensation (Primary Dx); LPRD (laryngopharyngeal reflux disease)Start: 12-21-2024 End: 21-99-3837citfnzzolkXHEYFG Rufino Aguilar AvailableStart: 12-20-2024 End: 21-53-9114mwleuummgfBnyvxr E BraunFacility:[facility] Centertart: 12-20-2024 End: 25-27-8042Mplvmxvb ReferredSandro Chin MD-[facility] [place] Work Phone: Start: 12-20-2024 End: 35-30-2839Cxnpixm encounter procedureSandro Chin MD-[facility] Work Phone: Start: 12-20-2024 End: 12-01-0656Vlsqtew encounter statusSandro Chin MDUniversity Hospitals St. John Medical Centertart: 12-14-2024 End: 31-18-6696qxvikdqqnjGcmbhdzrmPremier Health [facility] Work Phone: Start: 12-14-2024 End: 22-20-4320Ylnkywd encounter procedureC[facility] Work Phone: Start: 33-29-3804Rcqkftsyir RecurringMichael Grillis DO Work Phone: [facility] Work Phone: Start: 09-06-2024 End: 00-78-6153rosypuiqnwUpudkhk E Grillis DO Work Phone: [facility] Work Phone: Start: 09-06-2024 End: 76-71-9488Czjuyrh encounter procedureMichael Grillis DO Work Phone: [facility] Work Phone: Start: 87-50-0856Sci-patient / Non-visitMichael Grillis DO Work Phone: [facility] Work Phone: Start: 07-01-2024 End: 42-73-4101Xhqpwop encounter procedureMichael Grillis DO Work Phone: [facility] Work Phone: Start: 03-25-2024 End: 37-83-2041wopcultjueTXDEJZAQuincy Valley Medical Center [facility] Start: 03-25-2024 End: 62-48-4184Izwnwv follow up visit related to original Gina Howard PLUMBING DRAFTER-HANGAR ATTENDANT Work Phone: [facility] General SurgeryComment on above: History of removal of Port-a-Cath (Primary Dx); History of colon cancerStart: 03-15-2024 End: 59-92-2331xbrthtulttVUZJXIZOverlake Hospital [facility] Start: 03-15-2024 End: 96-50-2643Dewuhuo encounter procedureMichael E Grillis DO Work Phone: [facility] General SurgeryComment on above: History of colon cancer (Primary Dx)Start: 03-03-2024 End: 06-93-1535gyormcplddPNCBDULOverlake Hospital Medical Center [facility] Start: 03-03-2024 End: 50-61-0762Unfmkz outpatient visit 15 minutesMicarleth Alejandros DO Work Phone: [facility] General SurgeryComment on above: History of colon cancer (Primary Dx)Start: 01-19-2024 End: 97-12-8270wdboeytpqhCQ Clint Jean Baptiste Work Phone: [facility] Work Phone: Start: 01-19-2024 End: 32-23-1727Mmmccyk encounter procedureDO Clint Jean Baptiste Work Phone: [facility] Ambulatory Work Phone: Start: 44-59-6468Nocqubfaxp RecurringDO Clint Jean Baptiste Work Phone: [facility] [place] [facility] Work Phone: Start: 00-03-7450Knq-patient / Non-visitDO Clint Jean Baptiste Work Phone: [facility] Work Phone: Start: 21-56-9524War-patient / Non-visitDO Clint Jean Baptiste Work Phone: [facility] Work Phone: Start: 39-49-3698Qgunyvv encounter statusDO Clint Jean Baptiste Work Phone: [facility] Centertart: 11-17-2023 End: 15-97-6038fndlhgzpsjLU Clint Jean Baptiste Work Phone: [facility] Work Phone: Start: 11-17-2023 End: 41-21-3230Vwxzfil encounter procedureDO Clint Jean Baptiste Work Phone: [facility] Group[facility] Work Phone: Start: 71-88-7116Rafdyeznim RecurringDO Clint Jean Baptiste Work Phone: [facility] Work Phone: Start: 09-26-2023 End: 79-73-4205ontrqftkihBR Clint Jean Baptiste Work Phone: [facility] Work Phone: Start: 09-26-2023 End: 47-06-1930Sqhrwrk encounter procedureDO Clint Jean Baptiste Work Phone: [facility] Ambulatory Work Phone: Start: 57-52-6183Bqx-patient / Non-visitDO Clint Jean Baptiste Work Phone: [facility] Work Phone: Start: 05-19-2023 End: 06-70-8894dyfkxgzinmIhsxqh Braun Other Nort mcTEL Other Start: 89-15-3535Ljwsub outpatient visit 15 minutes Sandro Hamilton [facility] Systemtart: 11-16-2022 End: 73-73-2091knxezbdhafCMIKMCU J ADAMOWICZFacility:X1Lhvkq: 11-02-2022 End: 51-15-1533qeojdgbbyvSYPPBYE J CHIQUISICZFacility:X5Vrvvn: 10-19-2022 End: 31-44-5790bhwifnhmedIT MARCIA E BRAUNFacility:U2Vhnfj: 09-14-2022 End: 11-06-5144ytnovfifupKGWJDQI J RADHAFacility:T0Fvzwu: 09-02-2022 End: 27-35-9093wzxskrrywbDXO [facility] Work Phone: Start: 09-02-2022 End: 64-30-1647Pwuhpdxeje RecurringDO Isaías Adamowicz II Work Phone: [facility] Work Phone: Start: 09-01-2022 End: 25-08-6728jefhoqjqedZHChris CHINFacility:J4Ccglx: 08-31-2022 End: 05-37-9772lnmzkchmxfUIHKRLM J CHIQUISICZFacility:N3Tdqil: 08-19-2022 End: 28-61-7736vpmwmghstpIKV [facility] Work Phone: Start: 08-19-2022 End: 34-79-9426Npxwbomswd RecurringDO Isaías Adamowicz II Work Phone: [facility] Work Phone: Start: 08-16-2022 End: 24-51-1124utwpilghwzYWATMGU J ADAMOWICZFacility:W0Asehi: 08-03-2022 End: 76-07-5497bzululaezxIXYJSED J HAROONOWICZFacility:A5Jojas: 07-22-2022 End: 49-03-8004sqpqfmowrtUDW [facility] Work Phone: Start: 07-22-2022 End: 14-95-2429Ppbxbmxblj RecurringDO Isaías Adamowicz II Work Phone: [facility] Work Phone: Start: 07-20-2022 End: 40-02-4821xjnpczzstcGPCTVGX J ADAMOWICZFacility:C7Npnoy: 07-06-2022 End: 05-89-0480jjncgbnlgfAI Michael E Grillis Work Phone: [facility] Work Phone: Start: 07-06-2022 End: 47-23-5971Djsrvgbc ReferredDO Clint Jean Baptiste Work Phone: [facility] [place] Work Phone: Start: 93-71-8204Vocwrmqsok Sharon Jean Baptiste Work Phone: [facility] Work Phone: Start: 06-24-2022 End: 64-87-3765ucwkopjueqHHNikki Alejandros Work Phone: [facility] Work Phone: Start: 06-24-2022 End: 79-94-9881Gocuozgogx Sharon Jean Baptiste Work Phone: [facility] CenterStart: 06-24-2022 End: 26-88-1052nfeebxaldkWCNikki Jean Baptiste Work Phone: [facility] Work Phone: Start: 06-24-2022 End: 77-33-5872Bzlgpvgamq Sharon Jean Baptiste Work Phone: [facility]-Cancer CenterStart: 06-22-2022 End: 66-43-3496qefawmyafuZMCUFAN J CHIQUISICZFacility:N0Ycgxs: 06-08-2022 End: 90-60-0116xvhuimbhqeJPFBUGJ J ADAMOWICZFacility:D3Qogog: 06-03-2022 End: 73-83-2412eyxjqppfsaLB Michael E Grillis Work Phone: [facility] Work Phone: Start: 06-03-2022 End: 87-81-5686Rilxzxikhw RecurringDO Clint Jean Baptiste Work Phone: [facility] CenterStart: 06-01-2022 End: 85-77-4975tjfuitefnuMRHRJNO J ADAMOWICZFacility:G2Ehzbc: 05-22-2022 End: 13-47-8729nfrqsgeoadZZMLAUA J ADAMOWICZFacility:X5Ewfaq: 05-21-2022 Encounter for preprocedural laboratory examinationDR CLINT JEAN BAPTISTE .[facility]art: 05-18-2022 End: 37-41-2110jefuolrgigAV CLINT JEAN BAPTISTE .Facility:K6Gwedm: 05-18-2022 End: 10-67-6691Nwvhenxei for preprocedural laboratory examinationDR CLINT JEAN BAPTISTE .Facility:L2Auupr: 04-10-2022 End: 41-72-7648Pfdwvaxmzw and management of inpatientDR SANDRO CHIN Facility:R1Pifnw: 04-08-2022 End: 23-68-5482fcpseicxgpRT CLINT JEAN BAPTISTE .Facility:D7Tcyvu: 04-04-2022 Encounter for preprocedural cardiovascular examinationDR CLINT JEAN BAPTISTE .[facility]Start: 33-77-2334Pdghkmqpg for preprocedural laboratory examinationDR CLINT JEAN BAPTISTE .[facility]art: 04-02-2022 End: 13-06-9925gbirjysiwyHZ MICHAEL E GRILLIS .Facility:M9Emwbo: 04-02-2022 End: 60-07-4667Hunebosqq for preprocedural cardiovascular examinationDR CLINT JEAN BAPTISTE .Facility:L1Vrfse: 03-27-2022 End: 33-31-6947fxomhpbljhAE CLINT JEAN BAPTISTE .Facility:Y3Omgju: 03-13-2022 End: 34-88-8659irdmeaulpdFB MICHAEL E GRILLIS .Facility:T4Rdvvd: 03-09-2022 End: 62-60-5859vakqkhlcotYX CLINT JEAN BAPTISTE .Facility:D2Hhaze: 01-09-2022 End: 87-77-3606qdwulrfzquSU SANDRO CHINFacility:H1 Procedures DateProcedureProcedure DetailPerforming ClinicianStart: 82-37-6171YAAAUIX POCT GLUCOMETERSStephaniesamantha Betancur Johnny STANFORD Work Phone: Start: 18-13-3239Auplzqdenqvupjjf antigen Harish Chin MD Work Phone: Comment on above:Nonsmokers <3.9 Smokers <5.6Roche [employer] Electrochemiluminescence Immunoassay(ECLIA)Values obtained with different assay methods or kitscannot be used interchangeably. Results cannot beinterpreted as absolute evidence of the presence orabsence of malignant disease.Performed at: [facility]Pqdpwj[address] [place], [place] [id number] Director: Edilson Saunders PhD, Phone: [phone]: 08-24-2024 Carcinoembryonic antigen ceaMicdignity health mercy gilbert medical centerl Grillis DO Work Phone: Comment on above:Nonsmokers <3.9 Smokers <5.6[employer] Electrochemiluminescence Immunoassay(ECLIA)Values obtained with different assay methods or kitscannot be used interchangeably. Results cannot beinterpreted as absolute evidence of the presence orabsence of malignant disease.Performed at: [employer] [address] [place], [place] [id number] Director: Edilson Saunders PhD, Phone: [phone]: 03-15-2024 Removal of implantable venous access portMichael NILL Start: 04-70-0898Hosihqvcucvawzto antigen Frank Jean Baptiste Work Phone: Comment on above:Nonsmokers <3.9 Smokers <5.6[employer] Electrochemiluminescence Immunoassay(ECLIA)Values obtained with different assay methods or kitscannot be used interchangeably. Results cannot beinterpreted as absolute evidence of the presence orabsence of malignant disease.Performed at: [employer] [place], [place] [id number] Director: Edilson Saunders PhD, Phone: [phone]: 09-18-2023 Carcinoembryonic antigen Frank Jean Baptiste Work Phone: Comment on above:Nonsmokers <3.9 Smokers <5.6[employer] Electrochemiluminescence Immunoassay(ECLIA)Values obtained with different assay methods or kitscannot be used interchangeably. Results cannot beinterpreted as absolute evidence of the presence orabsence of malignant disease.Performed at: [facility] [address] [id number] Director: Edilson Saunders PhD, Phone: [phone]: 05-07-2023 ColonoscopyMichael Grillis DO Work Phone: Start: 16-66-1052LqrfbpgazziPjqunmt NILL Start: 48-41-8397Mywxiqymh of implantable venous access device using fluoroscopic guidanceMichael NILL Start: 04-94-0315Ndzxkvqld of Sigmoid Colon, Open ApproachISAÍAS JORDANStart: 37-10-0485Rzhxyis colectomyMichael NILL Start: 04-57-7324CavuawmnjsjDratjqz NILL Cesarean sectionMichael NILL EsophagogastroduodenoscopyMichael NILL Extraction of wisdom toothMichael NILL Repair of left inguinal herniaMichael NILL Plan of Treatment DateCare ActivityDetailAuthorStart: 45-00-2940Ekkorjfym for malignant neoplasm of colonNOMS HealthcareStart: 14-79-3485Urbuqrawv for malignant neoplasm of colonColonoscopyAdams County Hospital SystemStart: 12-10-0721dpcjusxwieAlmrybcbqqUCHealth [place] Hospitaltart: 86-69-3099Uivrmhc referralAs[facility] Work Phone: Start: 66-44-8037Owpbivk referralAshtabula [facility] Medical Center Work Phone: Start: 69-75-2871Gpibx BMI ScreeningAdult BMI ScreeningProOhiohealth Dublin Methodist Hospital SystemStart: 47-65-3616Horfpah ScreeningTobacco ScreeningAdams County Hospital SystemStart: 07-75-8566Mhjclnunt vaccinationInfluenza Vaccine (#1)[facility] HealthcareStart: 09-97-3396Hkfgf BMI ScreeningAdult BMI ScreeningProOhiohealth Dublin Methodist Hospital SystemStart: 85-08-5250Hggsskj ScreeningTobacco ScreeningProOhiohealth Dublin Methodist Hospital SystemStart: 02-01-2025 End: 55-56-0041SrhwdklcdUniversity Hospitals St. John Medical Centertart: 12-21-2024 End: 63-19-9775Dkxvhjw encounter afplejnbv28/17/2025 8:40 AM EDT Office Visit [facility] [address] [facility] [address] [place] [address] Constantino Martinez MD [address] [facility] [address] [place] [address] ArrivedNOMS CI ENTComment on above:ArrivedStart: 35-84-2469Rkrnpjo referralAshtabula County Medical Center Work Phone: Start: 03-25-2024 End: 27-93-9088Mpdgwco encounter oshriglnu04/19/2024 11:00 AM EDT Office Visit [facility] [address] [place] [phone] Masha Howard, PLUMBING DRAFTER-HANGAR ATTENDANT [address] [place] [address] [facility] SurgeryStart: 03-15-2024 End: 69-64-0721Sjckfdp encounter mhidgtjga55/09/2024 1:30 PM EDT Office Visit [facility] [address] [facility]TEOD[facility], [id number] Clint Jean Baptiste DO [address] [place], [place] [id number] [facility] General SurgeryStart: 97-29-2330HWFZW-19 Vaccine ()COVID-19 Vaccine ()[facility] SystemStart: 92-89-6035Uxyhkhaqa vaccinationInfluenza VaccineAdams County Hospital SystemStart: 24-10-8331OqqkmpzOhio State Health System Work Phone: Start: 02-14-6535Luitmfp [facility] Work Phone: Start: 60-52-6411WNDPD-19 Vaccine () COVID-19 Vaccine ()[facility] SystemStart: 11-18-2022 [facility] CenterStart: 73-06-6055XajvlvzdfBellevue Hospital CenterStart: 72-62-8982VjnhfthtiBellevue Hospital CenterStart: 10-21-2022 [facility] CenterStart: 53-35-1335QijmohhrkBellevue Hospital CenterStart: 01-81-1420CsnhfjxaqBellevue Hospital CenterStart: 09-23-2022 [facility] CenterStart: 41-73-8848EfcnshrefBellevue Hospital CenterStart: 75-98-5799ZwpzejefxBellevue Hospital CenterStart: 09-02-2022 [facility] CenterStart: 68-42-0856EtqmckyftBellevue Hospital CenterStart: 42-42-2235AxpgghfjoBellevue Hospital CenterStart: 08-05-2022 [facility] CenterStart: 82-14-8228FbszbiqshBellevue Hospital CenterStart: 02-92-6767CknqpstfsBellevue Hospital CenterStart: 06-26-2022 [facility] CenterStart: 21-20-2611AkekchofiBellevue Hospital CenterStart: 37-44-7893Zbyxefkxcdrgu metabolic 2000 panel - Serum or Plasma [facility] CenterStart: 83-64-8155Wtrulduvs measurementBellevue Hospital CenterStart: 14-93-2667FghkvxcilBellevue Hospital CenterStart: 31-98-9278EyrlzhictBellevue Hospital CenterStart: 34-66-4679JeqrlbbfqUniversity Hospitals St. John Medical Centertart: 01-23-8496NcfgpcsblUniversity Hospitals St. John Medical Centertart: 10-56-5419Kkmjsopms for malignant neoplasm of breastMammogramNOMS Healthcare Start: 38-13-0339Unuwatwez for malignant neoplasm of cervixNOMS HealthcareStart: 07-63-8335Bjlovimup for malignant neoplasm of cervixPap SmearAtrium Health Waxhawtart: 04-12-8319Jvtsyoamrniiyi of varicella zoster vaccineZoster (Shingles) Vaccine (1 of 2)[facility]: 25-98-1916VMuD,Tdap and Td Vaccines (1 - Tdap)DTaP,Tdap and Td Vaccines (1 - Tdap)[facility]: 68-28-2914Wkxty BMI Follow Up PlanAdult BMI Follow Up PlanAtrium Health Waxhawtart: 38-52-3705Vjvodfdlss ScreeningDepression ScreeningAtrium Health Waxhawtart: 80-00-2549Lqeqjfadf for malignant neoplasm of colonNOMS HealthcareAlanine aminotransferase [Enzymatic activity/volume] in Serum or Plasma by No addition of P-5'-[facility] Work Phone: Alanine aminotransferase [Enzymatic activity/volume] in Serum or Plasma by No addition of [facility] Albumin [Mass/volume] in Serum or PlasmaCorey Hospital Work Phone: Albumin [Mass/volume] in Serum or PlasmaSelect Medical Specialty Hospital - TrumbullAlbumin/Globulin ratioCorey Hospital Work Phone: Albumin/Globulin ratioSelect Medical Specialty Hospital - TrumbullAlkaline phosphatase [Enzymatic activity/volume] in Serum or Plasma [facility] Work Phone: Alkaline phosphatase [Enzymatic activity/volume] in Serum or PlasmaSelect Medical Specialty Hospital - TrumbullAnion gap measurementBellevue Hospital Ctr Work Phone: Anion gap measurementSelect Medical Specialty Hospital - Trumbull Aspartate aminotransferase [Enzymatic activity/volume] in Serum or Plasma [facility] Work Phone: Aspartate aminotransferase [Enzymatic activity/volume] in Serum or PlasmaSelect Medical Specialty Hospital - TrumbullBasophil [facility] Work Phone: Basophil percent differential [facility] Work Phone: Bilirubin.total [Mass/volume] in Serum or Plasma [facility] Work Phone: Bilirubin.total [Mass/volume] in Serum or Plasma [facility] TrumbullCalcium [Mass/volume] in Serum or Plasma [facility] Work Phone: Calcium [Mass/volume] in Serum or [facility] HospitalCarbon dioxide, total [Moles/volume] in Serum or Plasma [facility] Work Phone: Carbon dioxide, total [Moles/volume] in Serum or [facility] HospitalCarcinoembryonic Ag [Mass/volume] in Serum or [facility] HospitalChloride [Moles/volume] in Serum or [facility] Work Phone: Chloride [Moles/volume] in Serum or [facility] HospitalChoriogonadotropin ( test) [Presence] in Urine [facility] TrumbullComprehensive metabolic 1999 panel - Serum or [facility] HospitalComprehensive metabolic 1999 panel - [facility] or [facility] HospitalComprehensive metabolic 1999 panel - Serum or [facility] HospitalComprehensive metabolic 1999 panel - Serum or [facility] HospitalComprehensive metabolic 2000 panel - Serum or [facility] Comprehensive metabolic 2000 panel - Serum or [facility] HospitalComprehensive metabolic 1999 panel - Serum or [facility] HospitalComprehensive metabolic 1999 panel - Serum or [facility] HospitalComprehensive metabolic 1999 panel - Serum or Plasma [facility] TrumbullComprehensive metabolic 1999 panel - Serum or [facility] HospitalComprehensive metabolic 1999 panel - Serum or [facility] HospitalComprehensive metabolic 1999 panel - Serum or [facility] HospitalComprehensive metabolic 1999 panel - Serum or [facility] HospitalComprehensive metabolic 2000 panel - Serum or [facility] Comprehensive metabolic 2000 panel - Serum or [facility] HospitalCreatinine and Glomerular filtration rate.predicted panel - Serum, Plasma or [facility] Work Phone: Creatinine and Glomerular filtration rate.predicted panel - Serum, Plasma or [facility] Glen[facility]ighCT Abdomen and Pelvis W contrast [facility] CenterCT Abdomen and Pelvis W contrast [facility] CenterCT Abdomen and Pelvis W contrast IV [facility] TrumbullCT Abdomen and Pelvis W contrast [facility] CenterCT Abdomen and Pelvis W contrast [facility] CenterCT Abdomen and Pelvis W contrast [facility] CenterCT Chest W contrast [facility] CenterCT Chest W contrast [facility] CenterCT Chest W contrast [facility] CenterCT Chest W contrast [facility] CenterCT Chest W contrast [facility] CenterCT Chest W contrast [facility] Medical CenterEosinophil percent differential countBellevue Hospital Ctr Work Phone: Eosinophils [#/volume] in [facility] Work Phone: Erythrocyte mean corpuscular volume determination [facility] Work Phone: Erythrocytes [#/volume] in [facility] Work Phone: Globulin [Mass/volume] in [facility] Work Phone: Globulin [Mass/volume] in [facility] HospitalGlucose [Mass/volume] in Serum or [facility] Work Phone: Glucose [Mass/volume] in Serum or [facility] HospitalHematocrit [Volume Fraction] of [facility] Work Phone: Hemoglobin [Mass/volume] in [facility] Work Phone: Hemoglobin distribution, width determinationBellevue Hospital Ctr Work Phone: Leukocytes [#/volume] in BloodBellevue Hospital Ctr Work Phone: Lymphocyte countBellevue Hospital Ctr Work Phone: Lymphocyte percent differential countBellevue Hospital Ctr Work Phone: Magnesium measurementSelect Medical Specialty Hospital - Trumbull Magnesium measurementSelect Medical Specialty Hospital - TrumbullMagnesium measurement [facility] TrumbullMean corpuscular hemoglobin concentration determinationBellevue Hospital Ctr Work Phone: Mean corpuscular hemoglobin determinationBellevue Hospital Ctr Work Phone: Measurement of renal functionCorey Hospital Work Phone: Measurement of renal functionSelect Medical Specialty Hospital - TrumbullMG Breast - bilateral ScreeningSelect Medical Specialty Hospital - Trumbull Monocyte countBellevue Hospital Ctr Work Phone: Monocyte percent differential countBellevue Hospital Ctr Work Phone: Neutrophil countBellevue Hospital Ctr Work Phone: Neutrophil percent differential countBellevue Hospital Ctr Work Phone: Patient EducationCorey Hospital Work Phone: Patient referralAshtabula County Medical Center Work Phone: Platelet mean volume determinationBellevue Hospital Ctr Work Phone: Platelets [#/volume] in BloodBellevue Hospital Ctr Work Phone: Potassium [Moles/volume] in Serum or PlasmaB[facility]vue Hospital [facility] Work Phone: Potassium [Moles/volume] in Serum or PlasmaSelect Medical Specialty Hospital - TrumbullProtein [Mass/volume] in Serum or PlasmaBellevue Hospital [facility] Work Phone: Protein [Mass/volume] in Serum or PlasmaUniversity Hospitals St. John Medical Centerodium [Moles/volume] in Serum or PlasmaBellevue Hospital [facility]tr Work Phone: Sodium [Moles/volume] in Serum or PlasmaSelect Medical Specialty Hospital - TrumbullUrea nitrogen [Mass/volume] in Serum or PlasmaCorey Hospital Work Phone: Urea nitrogen [Mass/volume] in Serum or Plasma [facility] Immunizations Immunization DateImmunizationNotesCare VntqytyqHrfikenn23-95-8261zxwltsjnx virus vaccine, unspecified formulationRandy Turner [employer] Work Phone: [facility] SystemPutrghzqus00-49-5804LNWU-WsD-1 (COVID-19) mRNAMUL.ORD![id number] NILL [phone]-YfkosC[facility] Clinic [facility] [place] 25-06-4882ECOA-CoV-2 (COVID-19) mRNA-1273 vaccineMichael NILL [phone]-IykloMercy Health [facility] Hospital 16-70-8626PYFF-CoV-2 (COVID-19) mRNA-1273 vaccineMichael NILL [phone]-XsspeCleveland Clinic [facility] [place] 84-32-7818PXXM-CoV-2 (COVID-19) mRNA-1273 vaccineMichael NILL [phone]-NlagiCleveland Clinic [facility]cre[facility] [place] Payers DatePayer CategoryPayerPolicy [id number] Health Insurance [id number]-[id number] Cross Blue ShieldBCBS [id number] ANTH BLUE ACCESS (PPO) [id number] 2022- [phone] [address] [place] [id number] [id number] [id number] 2..1.897624.3.579.2.04711-17-5611Khfhokh1815440 2..1.345827.3.579.2.06222-43-2553Txnmruh6446255 2..1.636180.3.579.2.59203-16-9791Vfylykv0838908 2..1.566371.3.579.2.34666-58-5635Brpbzlr0009190 2..1.285919.3.57[id number] 2..1.594759.3.579.2.03010-61-1818Yyyeseg4197335 2.16.840.1.103676.3.579.2.94672-13-5647Jmfotuv4874287 2.16.840.1.814046.3.579.2.18610-49-3293Ebwxvvs8306189 2.16.840.1.890328.3.579.2.61954-04-4567Ihqkdmf9751009 2.16.840.1.273480.3.579.2.89951-42-9372Evxgxsa2139649 2.16.840.1.422905.3.579.2.34032-38-3881Habysqn4591109 2.16.840.1.709403.3.579.2.55683-66-1439Xxxcdml7650065 2.16.840.1.014546.3.579.2.91832-00-9356Tskcoex0142922 2.16840.1.349399.3.579.2.94054-71-4030Mftgonc4634121 2.16840.1.430280.3.579.2.51529-64-1075Pebwnvk8599448 2.16.840.1.938049.3.579.2.34028-47-2213Uuqmfyt4980569 2.16.840.1.206588.3.579.2.86744-87-1169Ysrmqrl2842657 2.16.840.1.462572.3.579.2.71367-47-5560Fclqtmv3934795 2.16.840.1.550450.3.579.2.69397-02-0009Iwoeerq6612607 2.16.840.1.490564.3.579.2.76169-18-4246Oppiwzi2281652 2.16.840.1.924978.3.579.2.97800-68-2046Mdpclnh1632516 2.16.840.1.768291.3.579.2.45301-30-6079Qdbkvxt0023363 2.840.1.990665.3.579.2.81248-26-2511Ubnteqb3826186 2.840.1.241172.3.579.2.43825-51-5743Gdchqtp04241377 2.840.1.534329.3.579.2.568919-00-3447Ngeolxk62527303 2.840.1.184906.3.579.2.658096-48-1239Wwmcvza46746008 2.0.1.101589.3.579.2.574397-72-1524Pysxphs90414947 2.0.1.855332.3.579.2.133351-80-0250Zcgdzww446338291 2.0.1.978908.3.579.2.37582-01-8731Wjwgkcr286365683 2.0.1.310097.3.579.2.24097-92-0705Acrhgcm10983245 2.840.1.060203.3.579.2.41591-44-1967Wyiqwgz17400892 2.840.1.462416.3.579.2.034Yudfydz32890644Dtcbtsc25625126 2.840.1.829295.3.579.2.845Eojeham84189062 2.0.1.582227.3.579.2.531 Shhpgsj01214870 2.0.1.573570.3.579.2.531 Social History DateTypeDetailFacilityStart: 05-27-2022 End: 46-78-9807Vgpbgvm smoking status NHISNever smoked tobacco (finding) [facility] Centertart: 94-24-4322Spz Assigned At BirthFeSelect Medical Specialty Hospital - Trumbulltart: 03-03-2024 End: 01-28-2873Hbm Assigned At [facility] mcTEL Other Start: 74-30-8143Uextpyb smoking status NHISEx-smoker [facility] SystemHistory of tobacco useCurrent smokerAdams County Hospital SystemHistory of tobacco useCigarette SmokerAdams County Hospital SystemStart: 04-19-2022 End: 91-47-3493Kigiapa use and exposureSmokeless tobacco non-userAdams County Hospital SystemStart: 03-03-2024 End: 51-82-7717Opcappwes beverage intakeCurrent drinker of alcohol (finding) [facility] SystemStart: 03-03-2024 End: 70-51-9094Sgvkeql of Social functionProOhiohealth Dublin Methodist Hospital SystemWithin the past 12 months we worried whether our food would run out before we got money to buy more.Never TrueAdams County Hospital SystemStart: 69-67-4128Lxrarmn Commentsmoked when patient was 18 for 6 monthsAdams County Hospital SystemStart: 81-95-0055Zodhtjd CommentoccasionallyAdams County Hospital SystemStart: 46-27-2745Pvw assigned at Not on fileAdams County Hospital SystemStart: 09-06-2024 End: 67-12-1065PviUiqbwc (finding)[facility] TrumbullTobacco smoking status NHISTobacco smoking consumption unknownGUNNISON VALLEY [facility] HealthcareStart: 84-62-7932Oezdrvi CommentoccNOMS HealthcareSexual OrientationCleveland Clinic Hill[facility] [place] NEGATED: Highlighted [facility] Goals DatePatient GoalDesired Activity/State Clinical Notes 04-21-2021 to 04-13-2025 Note Date & GxvkAdgtZqqnzrpi65-50-2566 NoteGeneral Surgery Office/Clinic Note Chief Complaint consultation for port placement HPI Staff 60 year old female presents on consultation from Dr. Jordan for port placement due to recurrent colon carcinoma. Previous left port placement completed 05/2022 and removal 03/2024. History of Present Illness 60 yo female with h/o GERD, anxiety, glaucoma, recurrent colon cancer, referred for yxtuam-k-zvkl insertion; patient has h/o sigmoid colectomy in [...] swallowing difficulties, no hearing loss, no ear infection(s),no nose bleeds. Cardiovascular: normal blood pressure, no [...] Malignant neoplasm of colon, unspecified) plan right azkjmg-f-uvlm insertion under anesthesia; informed consent obtained. Ancef [...] section, EGD - esophagogastroduodenoscopy, Extraction of wisdom tooth,Repair of left inguinal hernia. Medications brimonidine Opth [...] Father. Immunizations Vaccine Date Status SARS-CoV-2 (COVID-19) mRNAMUL.ORD![id number] 05/16/2022 Recorded SARS-CoV-2 (COVID-19) mRNA-1273 vaccine 04/27/2021 Recorded SARS-CoV-2 (COVID-19) mRNA-1273 vaccine 08/02/2020 Recorded SARS-CoV-2 (COVID-19) mRNA-1 (more content not included)...[facility] HospitalComment on above:Result Comment: Electronically Signed By: DAGMAR EMMANUEL, Clint Muhammad\Date and Time Signed: 04/13/25 14:21 [id number] History of Present illness Narrative* Constantino Martinez MD - 12/21/2024 8:40 AM EDT Subjective [...] gland hypertrophy 12/20/2024 Situational anxiety 12/20/2024 bleeding ([facility]) 05/15/2022 Resolved Ambulatory Problems Diagnosis Date [...] 4 weeksif no improvement. documented in this encounterSaint Luke's Health SystemFyftscyrfu42-64-0516 Chief complaint+Reason for visit Narrative* Chief Complaint Admit [...] 7am Screening mammogram for breast cancer Ju az 2024 10:37am Wellness examination December 20, 2024 10: 37am [facility] Work Phone: 1(615) 100-688706-10-2025 Evaluation note* Diagnosis Onset Date Resolution Status Admit Date GERD (gastroesophageal reflux disease) acuteJun2024 9:27amPharyngitis, chronicacuteJune 2024 9:27amGlobus sensationacuteJune 2024 10:37amScreening mammogram for breast canceracute December 20, 2024 10:37amWellness examinationacuteJune 2024 10:37am [facility] Work Phone: 1(960) 573-874012-26-2024 Evaluation note* Diagnosis Onset Date Resolution Status Admit Date Osteoarthritis acuteDecember 2023 10:57amSituational anxietyacuteDecember 2023 10:57amAbnormal LFTsacuteMarch 2024 1:19pmChemotherapy-induced peripheral neuropathyacuteMarch 2024 1:19pmColon canceracuteMarch 2024 1:19pm Encounter for chemotherapy managementacuteSepch 2024 1:19pm [facility] Work Phone: 1(152) 618-388709-19-2024 History of Present illness Narrative* Masha Howard, OLIVIA-HANGAR ATTENDANT - 03/25/2024 11:00 AM EDT Subjective Marysol Jacobson is a 58 y.o. female status post [...] Sutures removed and Steri-Strips placed. Assessment Marysol Jacobson is a 58 y.o.female postop excision of chest port. Plan Follow-up as needed. History of removal of Port-a-Cath [Z98.890] RAEGAN TAYLOR [facility] [place] This note was created with the assistance of a speech recognition program. While intending to generate a timely document that accurately reflects the content of the visit, no guarantee can be provided that every grammatical or spelling mistake has been or will be identified or corrected. Thank you for your understanding. RAEGAN Taylor 03/25/24 1143 documented in this encounterR[facility]ide [facility]09-09-2024 History of Present illness Narrative* Clint [...] weeks for suture removal. documented in this encounterRiverside Methodist Hospital08-28-2024 History of Present illness Narrative* Clint Ernst Ita, DO - 03/03/2024 10:15 AM EDT Images from the original note were not included. [facility] [address] [place] [address] Progress NOTE CHIEF COMPLAINT Chief Complaint Patient presents with PORT REMOVAL PORT REMOVAL, PATIENT HOPING TO HAVE PROCEDURE DONE 03/24/24, REFERRED BY DR JORDAN, PATIENT WANTED TO WAIT TO HAVE PROC DONE IN MAR SO WAITED FOR OV UNTIL FEBRUARY Marysol Jacobson is a 58 y.o. female presents today requesting removal of her port as recommended by her oncologist Dr. Jordan She denies any complaints of abdominal pain and has a history of colon cancer resected by me April 10, 2022 at the [facility]. Her last colonoscopy was in May, and was normal. 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 MEDICATION Current Outpatient Medications: brimonidine (ALPHAGAN) [...] by mouth daily., Disp: , Rfl: omega 2-vjr-cam-fish oil (Fish OiL) 300-1,000 mg capsule, Take by mouth., Disp: , Rfl: omeprazole (PriLOSEC) 20 mg capsule, PATIENT REPORTS NEEDED , Disp: , Rfl: ALLERGY Allergies Allergen Reactions Hydrocodone Nausea And Vomiting Patient reports it was many years ago Codeine GI Disturbance MEDICAL HISTORY Past Medical History: Diagnosis Date Colon cancer ([facility]) Female pelvic congestion syndrome 02/20/2023 Glaucoma of both eyes bleeding SURGICAL HISTORY Past Surgical History: Procedure Laterality Date SECTION HERNIA REPAIR inguinal hernia LEFT COLECTOMY SIGMOID COLON RESECTION BY DR JEAN BAPTISTE, AT [facility] WISDOM TOOTH EXTRACTION SOCIAL HISTORY Social [...] patient/family/caregiver Referring and communicating with other health career discovery teacher History of colon cancer [Z85.038] Clint Jean Baptiste DO This note was created with the assistance of a speech recognition program. While intending to generate a timely document that accurately reflects the content of the visit, no guarantee can be provided that every grammatical or spelling mistake has been or will be identified or corrected. Thank you for your understanding. documented in this encounterOhioHealth O'Bleness HospitalGreenext Walter P. Reuther Psychiatric HospitalNqmwzy74-45-1012 Evaluation note* Encounter Date Diagnosis Assessment Notes Treatment Notes Treatment Clinical Notes May, Acute sinusitis, unspecified ( D-10 - J01.90) Sinus infections can be triggered by a secondary infection from a viral URI or even seasonal allergies. Take medications as directed. Use saline nasal spray prior to presciption nasal spray. Take medications as directed, and complete all doses of medication even if you start to feel better. Patientadvised to follow up with PCP if symptoms persist or worsen. Patient verbalized understanding and agreement with treatment plan. May,Other specified bacterial agents as the cause of diseases classified elsewhere (ICD-10 - B96.89) May,PV (benign positional vertigo), unspecified laterality (ICD-10 - H81.10)order for PT printed and given to pt. BABADU Other 09-18-2023 Progress note Author Isaías Jordan [facility] March 24, 2023 11:05amNote Date/TimeSeptember 2022 10:55[facility] at [address] [address] Hem/Onc Follow Up Note - OP Signed Patient: Marysol Jacobson MR#: [id number] : 1965 Acct:[id number] Age/Sex: 57 / F Type: REG RCR [...] may 2022 through october 2022. she required significantdose reductions for a few reasons by the [...] prior to f/u. f/u with me or repairer switchgear in may/jun. renew her celebrex prescription. - History of Present Illness Chief Complaint: Patient is here for a 5 month follow up with labs and outside notes and radiology for review. 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 She began having irregular bowel movements in September 2021. She also noted increasing bilateral lower abdominal pain. She also had about a 10 pound weight loss prior to surgery. Her only other medical history is glaucoma. Primary care provider is Dr. Jose Guadalupe Raya. Outpatientmedications include a few eyedrops, plus Ocuvite. Colonoscopy was performed on March 13, 2022, scope could not be passed xovzhg15 cm due to a tumor in the sigmoid colon. Almost obstructing and circ umferential. A CT of the abdomen and pelvis [...] of adjuvant FOLFOX chemotherapy for Stage IIIc coloncancer. Had a little bit of cold sensitivity, decreased appetite, fatigue and loose stool. Overall, very mild - tolerable; took Zofran x 1. 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 Labs reviewed on patient's chart from [place] - no significant cytopenias or electrolyte, renal/hepatic [...] Also engorged periuterine vessels. She has seen banbury mixer operator. she hadtransvaginal ultrasound. This will be monitored. Her FERRIS WHEEL ATTENDANT has offered her a dexa scan. Her [...] for coordination of care (as documented) and ttcg-ak-twbm counseling of patient and/or family. [facility] - Medical History Medical History: Medical History [...] Sodium 139, Potassium 4.3, Chloride 105, Carbon Iodnzkh10.3, Anion Gap 11.0, BUN 16, Creatinine 0.73, Est GFR (CKD- EPI) > 60.0, Glucose 80, Calcium 10.3, Total Bilirubin 0.8, AST 21, ALT 16, Alkaline Phosphatase 88, Total Protein 7.3, Albumin 4.4, Globulin 2.9, Albumin/Globulin Ratio 1.5 03/20/23 11:17: Corrected WBC 5.1, Uncorrected WBC Count 5.1, RBC 4.26, Hgb 13.8, Hct 40.8, MCV 95.7, MCH 32.3, MCHC 33.7, RDW 13.7, Plt Count 198, MPV 8.9,Neut % (Auto) 47.6, Lymph % (Auto) 39.4, Gilliam % (Auto) 9.0, Eos % (Auto) 2.8, Baso % (Auto) 1.2, Nucleat RBC Rel Count 0.1, Neut # (Auto) 2.4, Lymph # (Auto) 2.0, Gilliam # (Auto) 0.5, Eos # (Auto) 0.1, [...] by Isaías Jordan II, DO> 03/24/23 1105 [facility] Work Phone: 1(370) 307-749104-17-2023 Progress note Author Isaías Jordan [facility] October 21, 2022 8:50amNote Date/TimeApril 2022 8:38amB[facility] at [address] [address] Hem/Onc Follow Up Note - OP Signed Patient: Marysol Jacobson MR#: [id number] : 1965 Acct:[id number] Age/Sex: 57 / F Type: REG RCR [...] 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 She began having irregular bowel movements in September 2021. She also noted increasing bilateral lower abdominal pain. She also had about a 10 pound weight loss prior to surgery. Her only other medical history is glaucoma. Primary care provider is Dr. Jose Guadalupe Raya. Outpatientmedications include a few eyedrops, plus Ocuvite. Colonoscopy was performed on March 13, 2022, scope could not be passed xubkwa20 cm due to a tumor in the sigmoid colon. Almost obstructing and circ umferential. A CT of the abdomen and pelvis [...] of adjuvant FOLFOX chemotherapy for Stage IIIc coloncancer. Had a little bit of cold sensitivity, decreased appetite, fatigue and loose stool. Overall, very mild - tolerable; took Zofran x 1. 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 Labs reviewed on patient's chart from [place] - no significant cytopenias or electrolyte, renal/hepatic [...] from visiting her mother and family in [place]. She has no neuropathy at all. last [...] for coordination of care (as documented) and dwdf-rg-klcx counseling of patient and/or family. [facility] - Medical History Medical History: Medical History [...] by Isaías Jordan II DO> 10/21/22 0850 [facility] Work Phone: 1([phone]) 742-511302-27-2023 Progress note Author Isaías Jordan [facility] September 02, 2022 9:09amNote Date/TimeFebruary 2022 8:58[facility] [place] [address] Hem/Onc Follow Up Note - OP Signed Patient: Marysol Jacobson MR#: [id number] : 1965 Acct:[id number] Age/Sex: 57 / F Type: REG RCR [...] 4 or 6 weeks with me or repairer switchgear. - History of Present Illness Chief Complaint: Patient is here for a 2 week follow up with outside labs for review, prior to treatment today. States she is feeling remarkably better. 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 She began having irregular bowel movements in September 2021. She also noted increasing bilateral lower abdominal pain. She also had about a 10 pound weight loss prior to surgery. Her only other medical history is glaucoma. Primary care provider is Dr. Jose Guadalupe Raya. Outpatientmedications include a few eyedrops, plus Ocuvite. Colonoscopy was performed on March 13, 2022, scope could not be passed vmhtro07 cm due to a tumor in the sigmoid colon. Almost obstructing and circ umferential. A CT of the abdomen and pelvis [...] of adjuvant FOLFOX chemotherapy for Stage IIIc coloncancer. Had a little bit of cold sensitivity, decreased appetite, fatigue and loose stool. Overall, very mild - tolerable; took Zofran x 1. 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 Labs reviewed on patient's chart from [place] - no significant cytopenias or electrolyte, renal/hepatic [...] for coordination of care (as documented) and euhr-fx-aewv counseling of patient and/or family. [facility] - Medical History Medical History: Medical History [...] by Isaías Jordan II, DO> 09/02/22 0[address] [facility] Work Phone: [phone]) [phone] Hospital Discharge instructionsAmbulatory Orders* Proceed with Treatment Time Frame: 08/19/22, Location: Determined By Patient [facility] Work Phone: [phone]) 841-566402-13-2023 Hospital Discharge instructionsAmbulatory Orders* Proceed with Treatment Time Frame: 08/19/22, Location: Determined By Patient * Proceed with Treatment Time Frame: 09/02/22, Location: Determined By Patient * [facility] Order Time Frame: 1 Week, Location: Determined By Patient [facility] Work Phone: 1([phone]) 278-306202-13-2023 Hospital Discharge instructionsAmbulatory Orders* Proceed with Treatment Time Frame: 08/19/22, Location: Determined By Patient * Proceed with Treatment Time Frame: 09/02/22, Location: Determined By Patient * R[facility] Order Time Frame: 1 Week, Location: Determined By Patient * Referral to General Surgery Time Frame: 04/04/25, Location: None Selected [facility] Work Phone: 1([phone]) 751-564602-13-2023 Progress note Author Dayan Magallon [facility] August 19, 2022 11:20amNote Date/TimeFebruary 2022 11:14[facility] [place] [address] Hem/Onc Follow Up Note - OP Signed Patient: Marysol Jacobson MR#: [id number] : 1965 Acct:[id number] Age/Sex: 57 / F Type: REG RCR Copies to: MD Clint Bernstein,DO~ Subjective Date/Time of Service: Date of Service: 08/19/2022 Time of Service: 11:12 Chief Complaint: Patient is here for a 1 month follow up with labs for review, prior to treatment today. No concerns voiced. 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 She began having irregular bowel movements in September 2021. She also noted increasing bilateral lower abdominal pain. She also had about a 10 pound weight loss prior to surgery. Her only other medical history is glaucoma. Primary care provider is Dr. Jose Guadalupe Raya. Outpatientmedications include a few eyedrops, plus Ocuvite. Colonoscopy was performed on March 13, 2022, scope could not be passed akarxk33 cm due to a tumor in the sigmoid colon. Almost obstructing and circ umferential. A CT of the abdomen and pelvis [...] of adjuvant FOLFOX chemotherapy for Stage IIIc coloncancer. Had a little bit of cold sensitivity, decreased appetite, fatigue and loose stool. Overall, very mild - tolerable; took Zofran x 1. 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 Labs reviewed on patient's chart from [place] - no significant cytopenias or electrolyte, renal/hepatic [...] for coordination of care (as documented) and ohqh-wb-wnvf counseling of patient and/or family. Dictated By: Dayan Magallon APRN DD/ 11 Signed By: <Electronically signed by OLIVIA Magallon> 08/19/22 1120 [facility] Work Phone: 1([phone]) 730-216901-16-2023 Progress note Author Dayan Magallon [facility] July 22, 2022 11:46amNote Date/TimeJan2022 11:36[facility] [place] [address] Hem/Onc Follow Up Note - OP Signed Patient: Marysol Jacobson MR#: [id number] : 1965 Acct:[id number] Age/Sex: 57 / F Type: REG RCR Copies to: MD Clint Bernstein,DO~ Subjective Date/Time of Service: Date of Service: 07/22/2022 Time of Service: 11:34 Chief Complaint: Patient is here today for a one month follow up visit for coloncancer and go over labs. 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 She began having irregular bowel movements in September 2021. She also noted increasing bilateral lower abdominal pain. She also had about a 10 pound weight loss prior to surgery. Her only other medical history is glaucoma. Primary care provider is Dr. Jose Guadalupe Raya. Outpatientmedications include a few eyedrops, plus Ocuvite. Colonoscopy was performed on March 13, 2022, scope could not be passed gixupj54 cm due to a tumor in the sigmoid colon. Almost obstructing and circ umferential. A CT of the abdomen and pelvis [...] of adjuvant FOLFOX chemotherapy for Stage IIIc coloncancer. Had a little bit of cold sensitivity, decreased appetite, fatigue and loose stool. Overall, very mild - tolerable; took Zofran x 1. 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 Labs reviewed on patient's chart from [place] - no significant cytopenias or electrolyte, renal/hepatic [...] point review of systems is negative. [facility] - Medical History Medical History: Medical History [...] for coordination of care (as documented) and hhvg-kz-fgad counseling of patient and/or family. Dictated By: Dayan Magallon APRN DD/ 1134 Signed By: <Electronically signed by OLIVIA Magallon> 07/22/22 1146 [facility] Work Phone: 1([phone]) 833-491812-19-2022 Progress note Author Isaías Jordan [facility] June 24, 2022 9:49amNote Date/TimeDecemb2021 9:42[facility] [place] [address] Hem/Onc Follow Up Note - OP Signed Patient: Marysol Jacobson MR#: [id number] : 1965 Acct:[id number] Age/Sex: 57 / F Type: REG RCR [...] cotn folfox q2wks. f/u with me or repairer switchgear in a month. cbc, cmp on treatemet days. cea prior to f/u. 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 She began having irregular bowel movements in September 2021. She also noted increasing bilateral lower abdominal pain. She also had about a 10 pound weight loss prior to surgery. Her only other medical history is glaucoma. Primary care provider is Dr. Jose Guadalupe Raya. Outpatientmedications include a few eyedrops, plus Ocuvite. Colonoscopy was performed on March 13, 2022, scope could not be passed dhdxis75 cm due to a tumor in the sigmoid colon. Almost obstructing and circ umferential. A CT of the abdomen and pelvis [...] of adjuvant FOLFOX chemotherapy for Stage IIIc coloncancer. Had a little bit of cold sensitivity, decreased appetite, fatigue and loose stool. Overall, very mild - tolerable; took Zofran x 1. 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 Labs reviewed on patient's chart from [place] - no significant cytopenias or electrolyte, renal/hepatic [...] for coordination of care (as documented) and namr-vg-vyge counseling of patient and/or family. 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 She began having irregular bowel movements in September 2021. She also noted increasing bilateral lower abdominal pain. She also had about a 10 pound weight loss prior to surgery. Her only other medical history is glaucoma. Primary care provider is Dr. Jose Guadalupe Raya. Outpatientmedications include a few eyedrops, plus Ocuvite. Colonoscopy was performed on March 13, 2022, scope could not be passed ywlzmo40 cm due to a tumor in the sigmoid colon. Almost obstructing and circ umferential. A CT of the abdomen and pelvis [...] of adjuvant FOLFOX chemotherapy for Stage IIIc coloncancer. Had a little bit of cold sensitivity, decreased appetite, fatigue and loose stool. Overall, very mild - tolerable; took Zofran x 1. 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 Labs reviewed on patient's chart from [place] - no significant cytopenias or electrolyte, renal/hepatic issues. - Summary of Therapies Summary of Therapies: FOLFOX chemotherapy (adjuvant) 1. Cycle 1, Day 1: 05/27/2022 Subjective/ROS - Narrative: As per the HPI, otherwise 10 point review of systems is negative. 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 - plan Cycle 2, [...] for coordination of care (as documented) and mvtx-sv-sqyu counseling of patient and/or family. 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 She began having irregular bowel movements in September 2021. She also noted increasing bilateral lower abdominal pain. She also had about a 10 pound weight loss prior to surgery. Her only other medical history is glaucoma. Primary care provider is Dr. Jose Guadalupe Raya. Outpatientmedications include a few eyedrops, plus Ocuvite. Colonoscopy was performed on March 13, 2022, scope could not be passed hopjgj71 cm due to a tumor in the sigmoid colon. Almost obstructing and circ umferential. A CT of the abdomen and pelvis [...] for coordination of care (as documented) and laop-qf-owjy counseling of patient and/or family. 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 She began having irregular bowel movements in September 2021. She also noted increasing bilateral lower abdominal pain. She also had about a 10 pound weight loss prior to surgery. Her only other medical history is glaucoma. Primary care provider is Dr. Jose Guadalupe Raya. Outpatientmedications include a few eyedrops, plus Ocuvite. Colonoscopy was performed on March 13, 2022, scope could not be passed sacfga13 cm due to a tumor in the sigmoid colon. Almost obstructing and circ umferential. A CT of the abdomen and pelvis [...] for coordination of care (as documented) and qmfv-ge-mfvs counseling of patient and/or family. [facility] - Medical History Medical History: Medical History (Last Reviewed 05/03/22 @ 14:36 by mEber Rodriguez) Glaucoma of both eyes bleeding - [...] by Isaías Jordan II, DO> 05/03/22 1528 [facility] Work Phone: [phone]) 380-357710-01-2022 History general Narrative - Reported* Type Description Date Medical History Colon cancer Medical HistoryPelvic congestion syndromeSurgical HistoryBowel klqbjeykx47/2022 Surgical HistoryC -[id number] HistoryHernia [id number] History [place] teeth BABADU Other 09-07-2022 NoteOPERATIVE NOTE OPERATION DATE: 03/13/2022 [...] the abdomen and pelvis performed at the [facility], January 09, which was read as [...] diagnosis, then she will need surgical therapy.[id number] NotePatient Education Materials Follows: Laceration Care, Adult [...] needed: ? Soap. ? Water. ? Hand appliances sample maker. ? Bandage (dressing). ? Antibiotic ointment. ? Clean towel. How to take care of your cut Wash your hands with soap and water before touching your wound or changing your bandage. If soap and water are not available, use hand appliances sample maker. If your doctor used stitches or yuridia: [...] off the skin. General instructions ? Take vqqo-zeh-kvumvzb and prescription medicines only as told by [...] anywhere on your body. (more content not included)...[facility] complaint+Reason for visit Narrative* Chief Complaint Admit Date Sore Throat/ENT Referral December 14, 2024 9:27am Reason for Visit Admit Date Pharyngitis, chronic December 14, 2024 9:2 7am [facility] Work Phone: Evaluation + Plan note No data available for this section [facility] General Surgery [facility] Evaluation note* Diagnosis Onset Date Resolution Status Colon cancer acuteEncounter for chemotherapy managementacute [facility] Work Phone: Evaluation note* Diagnosis Onset Date Resolution Status Abnormal LFTs acuteChemotherapy-induced peripheral neuropathyacuteColon canceracuteEncounter for chemotherapy managementacute [facility] Work Phone: Evaluation noteNo assessment information available [facility] Work Phone: Evaluation note* Diagnosis Onset Date Resolution Status Colon cancer acuteAbnormal LFTsacuteChemotherapy-induced peripheral neuropathyacuteColon canceracuteEncounter for chemotherapy managementacuteSalivary gland hypertrophy acute [facility] Work Phone: Evaluation note* Diagnosis Onset Date Resolution Status Salivary gland hypertrophy acuteAbnormal LFTsacuteChemotherapy-induced peripheral neuropathyacuteColon canceracuteEncounter for chemotherapy managementacute [facility] Work Phone: Evaluation note* Diagnosis History of colon cancer- Primary Personal history of malignant neoplasm of large intestine documented in this encounter [facility]* Diagnosis History of colon cancer- Primary Personal history of malignant neoplasm of large intestine documented in this encounter [facility]* Diagnosis History of removal of Jrzj-u-Eyiy- Primary History of colon cancer Personal history of malignant neoplasm of large intestine documented in this encounter [facility]* Diagnosis Onset Date Resolution Status Admit Date Pharyngitis, chronic acuteJune 2024 9:27am [facility] Work Phone: Evaluation note* Diagnosis Globus sensation- Primary Gastrointestinal malfunction arising from mental factors LPRD (laryngopharyngeal reflux disease) Acute laryngitis, without mention of obstruction documented in this encounter [facility] HealthcareEvaluation note* Diagnosis Onset Date Resolution Status Admit Date Abnormal LFTs acuteSept2024 1:07pmChemotherapy-induced peripheral neuropathyacute March 21, 2025 1:07pmColon canceracuteSeptember 2024 1:07pmEncounter for chemotherapy managementacuteSeptember 2024 1:07pm [facility] Work Phone: Evaluation note* Diagnosis Onset Date Resolution Status Admit Date Abnormal LFTs acuteSeptember 2024 1:09pmChemotherapy-induced peripheral neuropathyacute April 04, 2025 1:09pmColon canceracuteSeptember 2024 1:09pmEncounter for chemotherapy managementacuteSeptember 2024 1:09pm [facility] Work Phone: Hospital Discharge instructionsAmbulatory Orders* Proceed with Treatment Time Frame: 08/19/22, Location: Determined By Patient [facility] Work Phone: Hospital Discharge instructionsAmbulatory Orders* Referral to ENT Time Frame: 11/17/23, Location: None Selected [facility] Work Phone: Hospital Discharge instructionsAmbulatory Orders* Referral to ENT Time Frame: 12/14/24, Location: None Selected [facility] Work Phone: Hospital Discharge instructions [...] problems. -Follow up with PCP. -Office number [phone]. [facility] Work Phone: Hospital Discharge instructions No data available for this section [facility] General Surgery [place] InstructionsNot on filedocumented in this encounter [facility] filedocumented in this encounter [facility]ructionsNot on filedocumented in this encounter [facility] Author Dayan Magallon [facility] June 03, 2022 8:41amNote Date/TimeNov2021 8:14[facility] [address] [address] Hem/Onc Follow Up Note - OP Signed Patient: Marysol Jacobson MR#: [id number] : 1965 Acct:[id number] Age/Sex: 57 / F Type: REG RCR [...] 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 She began having irregular bowel movements in September 2021. She also noted increasing bilateral lower abdominal pain. She also had about a 10 pound weight loss prior to surgery. Her only other medical history is glaucoma. Primary care provider is Dr. Jose Guadalupe Raya. Outpatientmedications include a few eyedrops, plus Ocuvite. Colonoscopy was performed on March 13, 2022, scope could not be passed cm due to a tumor in the sigmoid colon. Almost obstructing and circ umferential. A CT of the abdomen and pelvis [...] of adjuvant FOLFOX chemotherapy for Stage IIIc coloncancer. Had a little bit of cold sensitivity, decreased appetite, fatigue and loose stool. Overall, very mild - tolerable; took Zofran x 1. 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 Labs reviewed on patient's chart from [place] - no significant cytopenias or electrolyte, renal/hepatic issues. - Summary of Therapies Summary of Therapies: FOLFOX chemotherapy (adjuvant) 1. Cycle 1, Day 1: 05/27/2022 Subjective/ROS - Narrative: As per the HPI, otherwise 10 point review of systems is negative. 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 - plan Cycle 2, [...] for coordination of care (as documented) and hkxl-cu-jugb counseling of patient and/or family. Dictated By: Dayan Magallon APRN DD/ 3 Signed By: <Electronically signed by OLIVIA Magallon> 06/03/2241 [facility] Work Phone: Progress note Author Isaías Jordan [facility] June 24, 2022 9:49amNote Date/TimeDecemb2021 9:42[facility] [place] [address] Hem/Onc Follow Up Note - OP Signed Patient: Marysol Jacobson MR#: [id number] : 1965 Acct:[id number] Age/Sex: 57 / F Type: REG RCR [...] cotn folfox q2wks. f/u with me or repairer [employer]ge[employer] in a month. cbc, cmp on treatemet days. cea prior to f/u. 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 She began having irregular bowel movements in September 2021. She also noted increasing bilateral lower abdominal pain. She also had about a 10 pound weight loss prior to surgery. Her only other medical history is glaucoma. Primary care provider is Dr. Jose Guadalupe Raya. Outpatientmedications include a few eyedrops, plus Ocuvite. Colonoscopy was performed on March 13, 2022, scope could not be passed ytynst12 cm due to a tumor in the sigmoid colon. Almost obstructing and circ umferential. A CT of the abdomen and pelvis [...] of adjuvant FOLFOX chemotherapy for Stage IIIc coloncancer. Had a little bit of cold sensitivity, decreased appetite, fatigue and loose stool. Overall, very mild - tolerable; took Zofran x 1. 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 Labs reviewed on patient's chart from [place] - no significant cytopenias or electrolyte, renal/hepatic [...] for coordination of care (as documented) and dtlc-gj-jypx counseling of patient and/or family. [facility] - Medical History Medical History: Medical History (Last Reviewed 05/03/22 @ 14:36 by Ember Rodriguez) Glaucoma of both eyes bleeding - Surgical History Surgical History: Surgical History (Last Updated 05/02/22 @ 08:51 by Ember Rodriguez) History of History of hernia repair History of wisdom tooth extraction S/P colon resection Apr 2022 - Family History Family History: Family History (Last Updated 10/28/22 @ 14:37 by Ember Rodriguez) Mother Diabetes [...] by Isaías Jordan II, DO> 06/24/22 0949 [facility] Work Phone: Progress note Author Dayan Magallon [facility] July 22, 2022 11:46amNote Date/TimeJanuary 2022 11:36[facility] [address] [address] Hem/Onc Follow Up Note - OP Signed Patient: Marysol Jacobson MR#: [id number] : 1965 Acct:[id number] Age/Sex: 57 / F Type: REG RCR Copies to: MD Clint Bernstein,DO~ Subjective Date/Time of Service: Date of Service: 07/22/2022 Time of Service: 11:34 Chief Complaint: Patient is here today for a one month follow up visit for coloncancer and go over labs. 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 She began having irregular bowel movements in September 2021. She also noted increasing bilateral lower abdominal pain. She also had about a 10 pound weight loss prior to surgery. Her only other medical history is glaucoma. Primary care provider is Dr. Jose Guadalupe Raya. Outpatientmedications include a few eyedrops, plus Ocuvite. Colonoscopy was performed on March 13, 2022, scope could not be passed [id number] cm due to a tumor in the sigmoid colon. Almost obstructing and circ umferential. A CT of the abdomen and pelvis [...] of adjuvant FOLFOX chemotherapy for Stage IIIc coloncancer. Had a little bit of cold sensitivity, decreased appetite, fatigue and loose stool. Overall, very mild - tolerable; took Zofran x 1. 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 Labs reviewed on patient's chart from [place] - no significant cytopenias or electrolyte, renal/hepatic [...] point review of systems is negative. [facility] - Medical History Medical History: Medical History [...] for coordination of care (as documented) and [id number] counseling of patient and/or family. Dictated By: Dayan Magallon APRN DD/ 1134 Signed By: <Electronically signed by OLIVIA Magallon> 07/22/22 1146 [facility] Work Phone: Progress note Author Isaías Jordan [facility] September 02, 2022 9:09amNote Date/TimeFebruary 2022 8:58[facility] [place] [address] Hem/Onc Follow Up Note - OP Signed Patient: Marysol Jacobson MR#: [id number] : 1965 Acct:[id number] Age/Sex: 57 / F Type: REG RCR [...] 4 or 6 weeks with me or repairer switchgear. - History of Present Illness Chief Complaint: Patient is here for a 2 week follow up with outside labs for review, prior to treatment today. States she is feeling remarkably better. 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 She began having irregular bowel movements in September 2021. She also noted increasing bilateral lower abdominal pain. She also had about a 10 pound weight loss prior to surgery. Her only other medical history is glaucoma. Primary care provider is Dr. Jose Guadalupe Raya. Outpatientmedications include a few eyedrops, plus Ocuvite. Colonoscopy was performed on March 13, 2022, scope could not be passed [id number] cm due to a tumor in the sigmoid colon. Almost obstructing and circ umferential. A CT of the abdomen and pelvis [...] of adjuvant FOLFOX chemotherapy for Stage IIIc coloncancer. Had a little bit of cold sensitivity, decreased appetite, fatigue and loose stool. Overall, very mild - tolerable; took Zofran x 1. 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 Labs reviewed on patient's chart from [place] - no significant cytopenias or electrolyte, renal/hepatic [...] for coordination of care (as documented) and [id number]-[id number] counseling of patient and/or family. [facility] - Medical History Medical History: Medical History [...] by Isaías Jordan II, DO> 09/02/22 0909 [facility] Work Phone: Progress note Author Isaías Jordan [facility] January 19, 2024 12:05pmNote Date/TimeJuly 2023 11:20[facility] [place] [address] Cancer Center Note Signed Patient: Marysol Jacobson MR#: [id number] : 1965 Acct:[id number] Age/Sex: 58 / F Type: REG AMB Date of Service: 01/19/24 Copies to: Sandro hCin MD~ Assessment & Plan A/P Patient Instructions: [...] may 2022 through october 2022. 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 She began having irregular bowel movements in September 2021. She also noted increasing bilateral lower abdominal pain. She also had about a 10 pound weight loss prior to surgery. Her only other medical history is glaucoma. Primary care provider is Dr. Jose Guadalupe Raya. Outpatientmedications include a few eyedrops, plus Ocuvite. Colonoscopy was performed on March 13, 2022, scope could not be passed [id number] cm due to a tumor in the sigmoid colon. Almost obstructing and circ umferential. A CT of the abdomen and pelvis [...] of adjuvant FOLFOX chemotherapy for Stage IIIc coloncancer. Had a little bit of cold sensitivity, decreased appetite, fatigue and loose stool. Overall, very mild - tolerable; took Zofran x 1. 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 Labs reviewed on patient's chart from [place] - no significant cytopenias or electrolyte, renal/hepatic [...] from visiting her mother and family in [place]. She has no neuropathy at all. last [...] Also engorged periuterine vessels. She has seen banbury mixer operator. she hadtransvaginal ultrasound. This will be monitored. Her FERRIS WHEEL ATTENDANT has offered her a dexa scan. Her colonoscopy scheduled with Dr. Jean Baptiste for May 07. 06/25/23 She continues to do well, had her colonoscopy last month and there were no concerns on this she notes an episode of lightheadedness a few days after, thinks she was dehydrated. No recurrence.She notes after this she had about 3 weeks where she had anxiety and felt strongly that something was wrong. She went to her eye doctor, primary care, and even presented to the ER for her concern. She was given an antibiotic by her pcp and had a head CT done that was negative. She notes once her CTscans for our appointment were done, her symptoms [...] january with no evidence recurrence. done at [facility]. Intake Vitals/Pain Assessment 01/19/24 11:22 Height 5 [...] latanoprost 0.005% 1 drp Eye-Both QPM omega 0-cne-ipq-fish oil 300-1,000 mg (Fish Oil) 1 cap [...] of both eyes Surgical History Surgical History [place] teeth extracted S/P hernia repair History of [...] by Isaías Jordan II, DO> 01/19/24 1205 [facility] Work Phone: Progress note No data available for this section [facility] General Surgery [place] Reason for referral (narrative)No reason for referral information [facility] Work Phone: Summary Purpose Family History No Family History Records Found Relationship Condition Age at Onset Recorded Date/T demond Not Specified Diabetes mellitus Unknown DementiaUnknownHypertensionUnknownMyocardial infarctionUnknownGlaucomaUnknown fatherParkinsonismUnknown Relationship Condition Age at Onset Recorded Date/T demond Not Specified Diabetes mellitus Unknown DementiaUnknownHypertensionUnknownMyocardial infarctionUnknownGlaucomaUnknown fatherParkinsonismUnknownbrotherHypertensionUnknownfatherDeceasedUnknownNot SpecifiedHeart diseaseUnknownDiabetes mellitusUnknownsisterHypertensionUnknown Relationship Condition Age at Onset Recorded Date/T demond mother Diabetes mellitus Unknown DementiaUnknownHypertensionUnknownMyocardial infarctionUnknownGlaucomaUnknown fatherParkinsonismUnknownbrotherHypertensionUnknownfatherDeceasedUnknownmother Heart diseaseUnknownDiabetes mellitusUnknownsisterHypertensionUnknown Relationship Condition Age at Onset Recorded Date/T demond mother Diabetes mellitus Unknown DementiaUnknownMyocardial infarctionUnknownGlaucomaUnknownHypertensionUnknown DeceasedUnknownHeart diseaseUnknownfatherParkinsonismUnknownbrotherHypertension UnknownsisterHypertensionUnknownMalignant neoplasm of pancreasUnknown Advance Directives No Advanced Directives Records Found Advance Directive Response Recorded Date/ Time Advance Directives No May 06, 2022 6:27am Advance Directive Response Recorded Date/ Time Advance Directives No May 06, 2022 7:27am Chief Complaint and Reason for Visit Chief Complaint Colon Cancer Reason for Visit Colon cancer Encounter for chemotherapy management Chief Complaint Colon Cancer Malignant neoplasm of colonReason for VisitColon cancer Encounter for chemotherapy management Chief Complaint C18.9 Colon CancerReason for VisitColon cancer Encounter for chemotherapy management Chief Complaint C18.9 Colon CancerReason for VisitAbnormal LFTs Chemotherapy-induced peripheral neuropathy Colon cancer Encounter for chemotherapy management Chief Complaint 3 month colon cancer , scans/labs Colon CancerReason for VisitAbnormal LFTs Chemotherapy-induced peripheral neuropathy Colon cancer Encounter for chemotherapy management Chief Complaint 3 month colon cancer , scans/labs Colon Cancer swollen glandReason for VisitColon cancer Abnormal LFTs Chemotherapy-induced peripheral neuropathy Colon cancer Encounter for chemotherapy management Salivary gland hypertrophy Chief Complaint swollen gland Colon Cancer 4 Month Follow Up after CTReason for VisitSalivary gland hypertrophy Abnormal LFTs Chemotherapy-induced peripheral neuropathy Colon cancer [...] 2024 1:19 pm Encounter for chemotherapy management [facility] 2024 1:19pm Chief Complaint Admit Date EGD [...] section and content) DATE CREATED AUTHOR 05/02/2021 [facility] DATE CREATED AUTHOR AUTHOR'S ORGANIZ ATION 11/17/2022 [facility] DATE CREATED AUTHOR AUTHOR'S ORGANIZ ATION 03/27/2024 [facility] DATE CREATED AUTHOR AUTHOR'S ORGANIZ ATION 12/23/2024 [facility] DATE CREATED AUTHOR AUTHOR'S ORGANIZ ATION 04/14/2025 [facility] DATE CREATED AUTHOR AUTHOR'S ORGANIZ ATION 04/28/2025 [facility] DATE CREATED AUTHOR AUTHOR'S ORGANIZ ATION 04/29/2025 [facility] Care Teams (unrecognized sec tion and content) Team Status: Active Member Role Status Dates Sandro Chin MD Primary Care Provider Active Team Status: Active Member Role Status Dates Sandro Chin MD Primary Care Provider Active Start: December 25, 2024 Sandro Chin MDAttending ProviderActiveStart: December 25, 2024 Team Status: Active Member Role Status Dates Sandro Chin MD Primary Care Provider Active Start: February 01, 2025 Roz Borrego DOAttending ProviderActiveStart: February 01, 2025 Roz Borrego , DOOther ProviderActiveStart: February 01, 2025 Team Status: Active Member Role Status Dates Isaías Jordan II, DO Attending Provider Active Start: March 17, 2025 Sandro Chin , DIANAristephaniey Care ProviderActiveStart: March 17, 2025 Team Status: Inactive Member Role Status Dates Sandro Chin MD Primary Care Provider Active Start: March 21, 2025 End: March 21, 2025Isaías Jordan II, DOAttending ProviderActive Start: March 21, 2025 End: March 21, 2025 Team Status: Active Member Role Status Dates Clint Jean Baptiste DO Referring Provider Active Start: March 21, 2025 DIANA Bernsteinrirandy Care ProviderActiveStart: March 21, 2025 KristinaChanelle Turner , APRNAttenang ProviderActiveStart: March 21, 2025 Team Status: Inactive Member Role Status [...] Role Status Dates Isaías Jordan II, DO ActiveStart: January 19, 2024 LUIS Changerring ProviderActiveStart: January 19, 2024 DIANA Bernsteinristephaniey Care ProviderActiveStart: January 19, 2024 KristinaChanelle Turner , JAMIENAttenang ProviderActiveStart: January 19, 2024 Team Status: Inactive Member Role Status Dates Sandro Chin MD Primary Care Provider Active Start: January 19, 2024 End: January 19, 2024Isaías Jordan II, DOAttending ProviderActiveStart: January 19, 2024 End: January 19, 2024 Team Status: Active Member Role Status Dates Sandro Chin MD Primary Care Provide r, Attending Provider Active Start: September 18, 2023 Team Status: Inactive Member Role Status Dates Sandro Chin MD Primary Care Provider Active Start: September 26, 2023 End: September 26, 2023Randy CarmonaChanellematias Turner , APRNAttenang ProviderActive Start: September 26, 2023 End: September 26, 2023 Team Status: Active Member Role Status Dates Isaías Jordan II, DO ActiveStart: September 26, 2023 Clint Jean Baptiste , LUISeferring ProviderActiveStart: September 26, 2023 Sandro Chin , MDPrimary Care ProviderActiveStart: September 26, 2023 Kristinamatias Turner , APRNAttenang ProviderActiveStart: September 26, 2023 Team Status: Inactive Member Role Status Dates Isaías Jordan II, DO Attending Provider Active Team Status: Active Member Role Status Dates Isaías Jordan II, DO Attending Provider Active Clint Jean Baptiste , LUISeferring ProviderActiveMarcia Klever Chin , MDPrimary Care ProviderActive Team Status: Inactive Member Role Status Dates Isaías oJrdan II, DO Attending Provider Active NON STAFFPrimary Care ProviderActive Team Status: Active Member Role Status Dates NON STAFF Primary Care Provider Active Team MemberRelationshipSpecialtyStart DateEnd Date Sandro Chin MD [address] [place] [address] PCP - [facility]03/19/23Team MemberRelationshipSpecialtyStart DateEnd Date Sandro Chin MD [address] [place] [address] PCP - [facility]03/19/23 Team Status: Inactive Member Role Status Dates [...] Start: September 06, 2024 End: September 06, 2024Isaías Jordan II, DOAttending ProviderActiveStart: September 06, 2024 End: September 06, 2024 Team Status: Active Member Role Status Dates Isaías Jordan II, DO ActiveStart: September 06, 2024 Clint Jean Baptiste , LUISeferring ProviderActiveStart: September 06, 2024 Sandro Chin , [facility] ProviderActiveStart: September 06, 2024 Randy Turner , APRNAttending ProviderActiveStart: September 06, 2024 Team Status: Inactive Member Role Status Dates Sandro Chin MD Primary Care Provide r, Attending Provider Active Start: December 14, 2024 End: December 14, 2024Team MemberRelationshipSpecialtyStart DateEnd Date Sandro Chin MD [address] [place] [facility] [place] [phone] PCP - [facility]12/14/24Team MemberRelationshipSpecialtyStart DateEnd Date Sandro Chin MD [address] [place] [facility] [place] [phone] PCP - [facility]12/14/24 Team Status: Inactive Member Role Status Dates Sandro Chin MD Primary Care Provider Active Start: December 14, 2024 End: December 14, 2024Sandro Chin MDAttvaleria ProviderActiveStart: December 14, 2024 End: December 14, 2024 Team Status: Inactive Member Role Status Dates Sandro Chin MD Primary Care Provider Active Start: December 20, 2024 End: December 20, 2024Radha Bernstein ProviderActiveStart: December 20, 2024 End: December 20, 2024Team MemberRelationshipSpecialtyStart DateEnd Date Sandro Chin MD [address] [place] [facility] [place] [phone] PCP - [facility]12/14/24 Team Status: Inactive Member Role Status Dates Sandro Chin MD Primary Care Provider Active Start: April 04, 2025 End: April 04, 2025Isaías Jordan II, DOAttending ProviderActive Start: April 04, 2025 End: April 04, 2025Sandro Chin [facility] Care ProviderActiveStart: April 04, 2025 Goals (unrecognized section and [...] FOR VISIT (unrecogniz ed section and content) ReasonCommentsPORT REMOVALPORT REMOVAL, PATIENT HOPING TO HAVE PROCEDURE DONE 03/24/24, REFERRED BY DR JORDAN, PATIENT WANTED TO WAIT TO HAVE PROC DONE IN MAR SO WAITED FOR OV UNTIL FEBRUARYReasonCommentsProcedureREMOVAL OF PORTReason CommentsPost-opPost op port removal performed in office on 03/15/24, suture removalReasonCommentsAllergic RhinitisSpecialtyDiagnoses / ProceduresReferred By ContactReferred To ContactOtolaryngology Diagnoses Other seasonal allergic rhinitis Procedures SD UNLISTED EVALUATION AND MANAGEMENT SERVICE [facility] [address] [facility] [address] [place] [address] Phone: tel: fax: Constantino Martinez MD [address] [place] [address] [address] [place] [address] Phone: tel: fax: Referral IDStatusReasonStart DateExpiration DateVisits RequestedVisits [id number]/10/202512/ FOR RECORDS PERTAINING TO PATIENTS WHO ARE [...] BE BASED ON THE PRIMARY CLINICAL RECORDS. [facility], [facility]. provides no warranty or guarantee of the accuracy or completeness of information in this document.
[2025-05-04 12:52] LABS: Hematocrit 37.2 % (36.0-48.0); Hemoglobin 12.4 g/dL (12.0-16.0); Immature Granulocytes Abs Auto 0.01 10^3/uL (0.00-0.03); Immature Granulocytes Pct Auto 0.3 % (0.0-0.5); Lymphocytes Absolute Auto 1.6 10^3/uL (1.2-3.8); Mean Corpuscular HGB Conc 33.3 g/dL (29.9-35.2); Mean Corpuscular Hemoglobin 30.8 pg (26.7-34.0); Mean Corpuscular Volume 92.3 fL (81.0-99.0); Platelet Count 199 10^3/uL (150-450); Red Blood Count 4.03 10^6/uL (4.20-5.40); White Blood Count 3.6 10^3/uL (4.0-11.0)
[2025-05-04 14:11] LABS: Alanine Aminotransferase 33 U/L (14-59); Albumin Globulin Ratio 1.2; Albumin Level 3.6 g/dL (3.4-5.0); Alkaline Phosphatase 67 U/L (46-116); Anion Gap 14.7; Aspartate Amino Transferase 24 U/L (15-37); Blood Urea Nitrogen 12.0 mg/dL (7.0-18.0); Calcium 9.0 mg/dL (8.5-10.1); Carbon Dioxide 24.2 mmol/L (21.0-32.0); Chloride 106 mmol/L (98-107); Estimated GFR (African America >60 (>=60 mL/min/1.73m^2); Estimated GFR (Non-African Ame >60 (>=60 mL/min/1.73m^2); Globulin 3.0 g/dL; Glucose 114 mg/dL (74-106); Potassium 3.9 mmol/L (3.5-5.1); Sodium 141 mmol/L (136-145); Total Protein 6.6 g/dL (6.4-8.2)
== END 2025-05-04 12:22 | disposition home or self-care (01) ==
PROVIDERS: PCP Family Medicine; Visit Provider Internal Medicine
DX: C18.9 Malignant neoplasm of colon, unspecified (principal)
CPT/HCPCS: 36415; 80053; 85025

== ENCOUNTER 2025-05-17 12:19 | Outpatient (RCR) | payer BC, SELFPAY | END 2025-06-05 23:59 | disposition home or self-care (01) | LOC: HEMC 12:19 | PROVIDERS: PCP Family Medicine; Visit Provider Internal Medicine Hematology & Oncology | DX: C18.9 Malignant neoplasm of colon, unspecified (principal); C78.00 Secondary malignant neoplasm of unspecified lung; Z90.49 Acquired absence of other specified parts of digestive tract; R93.89 Abnormal findings on diagnostic imaging of other specified body structures | CPT/HCPCS: G0463 ==

== ENCOUNTER 2025-05-21 11:42 | Outpatient (OUT) | payer BC, SELFPAY ==
--- OUTSIDE RECORDS SUMMARY | 2025-05-21 11:45 | XMS_ITS | CCD ---
Author Organization [facility] Care Team Providers Care Information Assurance Manager Name Role Phone DO Isaías Jordan II Attending Provider [phone] DO Clint Jean Baptiste Referring Provider MD Sandro Chin Primary Care Provider DO Isaías Jordan II Attending Provider [phone] NON STAFF Primary Care Provider DO Clint [...] Unavailable DO Clint Jean Baptiste Referring Provider [phone] MD Sandro Chin Primary Care Provider [phone] OLIVIA Turner Attending Provider DO Clint Jean Baptiste Referring Provider [phone] MD Sandro Chin Primary Care Provider OLIVIA Turner Attending Provider CLINT JEAN BAPTISTE Attending Unavailable SANDRO CHIN Referring Unavailable GIUSEPPE, SANDRO E Primary Care Unavailable CLINT JEAN BAPTISTE Attending Unavailable SANDRO CHIN Referring Unavailable SANDRO CHIN E Primary Care Unavailable MASHA HOWARD Attending Unavailable SANDRO CHIN Referring Unavailable SANDRO CHIN Primary Care Unavailable Sandro Chin MD Primary Care Provider Clint Jean Baptiste DO Referring Provider Sandro Chin MD Primary Care Provider Randy Turner APRN Attending Provider Sandro Chin MD Primary Care Provider [phone] CONSTANTINO MARTINEZ Attending Unavailable Sandro Chin MD Primary Care Provider Sandro Chin MD Attending Provider [phone] Ly DO, Roz Bowen Attending Provider Ly DO, Roz L Other Provider Sandro Chin MD Primary Care Provider Sandro Chin MD Attending Provider [phone] Isaías Jordan DO Attending Provider Clint Jean Baptiste DO Referring Provider Randy Turner APRN Attending Provider Sandro Chin MD Primary Care Provider ENDER SANCHEZ Referring Unavailable SANDRO CHIN Primary Care Unavailable HIWOTANTONIO VELA Referring Unavailable SANDRO CHIN Primary Care Unavailable SANDRO CHIN Primary Care Physician Sandro Chin MD Primary Care Provider Provider, Outside Attending Provider Unavailable Inessa Mims APRN Attending Provider Clint LEAVITT Attending Unavailable Clint LEAVITT Attending Unavailable Sandro Chin MD Primary Care Provider Sandro Chin Primary Care Unavailable Ly, Roz L Admitting Unavailable Ly, Roz L Attending Unavailable Sandro Chin Admitting Unavailable Sandro Chin Primary Care Unavailable Sandro Chin Attending Unavailable Isaías Jordan II Attending Unavaila ble Clint Jean Baptiste Referring Unavailable Sandro Chin Primary Care Unavailable Isaías Jordan II Admitting Unavaila ble Allergies Allergy ClassificationReported Allergen(s)Allergy TypeDate of OnsetReaction(s) Facility (20 sources)HYDROcodone; Translations: [Hydrocodone]Drug Keuwsju61-86-0684Mpraqt And Vomiting, Nausea (finding)[facility] (1 source)Misc-Food; Translations: [Misc-Food]Food allergy (disorder)[facility] (11 sources)Codeine; Translations: [CODEINE]Drug Jsfxocw13-18-0839HH Disturbance, GI intolerance, Gastrointestinal irritation (disorder)[facility] Medications Current Medications MedicationDrug Class(es)DatesSig (Normalized)Sig (Original)acetaminophen 500 mg oral tablet (18 sources)Start: 30-80-1773pqma 2 tablets by mouth once daily as needed for painStart: 17-13-4027xgpb 1000 mg by mouth once dailyAcetaminophen Active 1000 MG PO Daily May 03, 2022 12:00amBeta-Glucan 500 mg capsule (2 sources)Start: 43-42-1750ywdofaadytb tartrate 2 mg/ml ophthalmic solution (20 sources)alpha-Adrenergic AgonistStart: 70-47-5993nvzp 1 drop(s) into the eye(s) twice dailybrimonidine (AlphaGAN P) 0.2 % ophthalmic solution INSTILL 1 DROP INTO EACH EYE TWICE DAILY DIRECTED 11/06/2024 ActiveStart: 05-02-2022 take 1 drop(s) into the eye(s) twice dailyStart: 42-11-3568mdij 1 drop(s) into the eye(s) twice dailybrimonidine Opth 0.2% [place] 1 drop(s), Eye-Both, BID, Refill(s) 0 Start Date: 05/02/22 Status: Ordered Repeat number: 1Start: 60-28-1721atci 1 drop(s) into the eye(s) twice dailyBrimonidine 0.2 % Drops Active 1 DROPS EYE-BOTH Twice daily May 02, 2022 12:00amStart: 05-02-2022 take 1 drop(s) into the eye(s) twice dailyBrimonidine Active 1 DROPS EYE-BOTH Twice daily May 02, 2022 12:00amStart: 56-03-7205qrbi 0.2 drop(s) into the eye(s) at bedtimebrimonidine (ALPHAGAN) 0.2 % ophthalmic solution Administer 0.2 drops to both eyes in the morning and at bedtime. 01/20/2022 Active cholecalciferol 0.025 mg oral capsule (18 sources)Vitamin DStart: 00-67-4823fxmg 1 capsule by mouth once daily cholecalciferol, vitamin D3, (VITAMIN D3 ORAL) (3 sources)cholecalciferol, vitamin D3, (VITAMIN D3 ORAL) Take 1,000 mg by mouth. Activechondroitin sulfates 400 mg / glucosamine hydrochloride 500 mg oral tablet (3 sources)take 1 tablet by mouth three times dailyglucosamine-chondroitin 500- 400 mg tablet Take 1 tablet by mouth 3 (three) times a day. ActivediazePAM 5 mg oral tablet (1 source)BenzodiazepineStart: 03-03-2024 End: 61-76-2994aaow 1 tablet by mouth once, then take 1 tablet by mouth every three hoursdiazePAM (VALIUM) 5 mg tablet Indications: History of colon cancer Take 1 tablet (5 mg total) by mouth once for 1 dose. Take 3 hr prior to procedure 1 tablet 03/03/2024 03/03/2024 Activedocosahexaenoic acid 120 mg / eicosapentaenoic acid 180 mg oral capsule (4 sources)Start: 30-70-8792aorjo-3 1000 MG capsule capsule Take by mouth 01/19/2024 ActiveOmega 4-Ytq-Nxu-Fish Oil (8 sources)Start: 63-78-5071reyc 300-1000 mg by mouth once dailyStart: 91-11-6136shnu 300-1000 mg by mouth once dailyOmega 4-Hxg-Mzo-Fish Oil (Fish Oil) 300-1,000 mg capsule Active 1 CAP PO Daily January 19, 2024 12:00am Complies with drug therapyStart: 12-36-2571lkfb 300-1000 mg by mouth once dailyOmega 5-Wpt-Lke-Fish Oil (Fish Oil) 300-1,000 mg capsule Active 1 CAP PO Daily January 18, 2024 11:00pmStart: 63-56-4161evln 300-1000 mg by mouth once dailyOmega 2-Zzt-Tqy-Fish Oil (Fish Oil) 300-1,000 mg capsule Active 1 CAP PO Daily January 19, 2024 12:00amdorzolamide 20 mg/ml / timolol 5 mg/ml ophthalmic solution (20 sources)Carbonic Anhydrase Inhibitor, beta-Adrenergic BlockerStart: 46-18-1355xlhp 1 drop(s) into the eye(s) twice dailyStart: 77-46-3001gkii 1 drop(s) into the eye(s) twice dailyDorzolamide-Timolol 22.3-6.8 mg/mL drops Active 1 DROPS EYE-BOTH Twice daily May 02, 2022 12:00amStart: 02-06-2022 dorzolamide-timoloL (COSOPT) 22.3-6.8 mg/mL ophthalmic solution Administer 6.8 drops to both eyes in the morning and at bedtime. 02/06/2022 ActiveStart: 96-17-1615oocjtwlqxyl-timolol (Cosopt) 2-0.5 % ophthalmic solution INSTILL 1 DROP INTO EACH EYE TWICE DAILY DIRECTED 11/12/2024 Activefamotidine 20 mg oral tablet (4 sources)Histamine-2 Receptor AntagonistStart: 12-21-2024 End: 16-89-0556ksyp 1 tablet by mouth at bedtimefamotidine (Pepcid) 20 MG tablet Indications: LPRD (laryngopharyngeal reflux disease) Take 1 tablet(20 mg) by mouth at bedtime 90 tablet 12/21/2024 Activelatanoprost 0.05 mg/ml ophthalmic suspension (20 sources)Prostaglandin AnalogStart: 95-26-7215vbyb 1 drop(s) into the eye(s) twice dailylatanoprost 0.005% ophthalmic emulsion 1 drop(s), Eye-Both, BID, Refill(s) 0 Start Date: 04/13/25 Status: Ordered Repeat number: 1Start: 89-52-5686fwov 1 drop(s) into the eye(s) in the eveninglatanoprost (Xalatan) 0.005 % ophthalmic solution INSTILL 1 DROP INTO EACH EYE IN THE EVENING DIR ECTED 04/24/2024 ActiveStart: 02-53-0923wnwf 1 drop(s) into the eye(s) once daily in the eveningStart: 05-50-9529wjye 1 drop(s) into the eye(s) once daily in the eveningLatanoprost 0.005 % Drops Active 1 DROPS EYE-BOTH Every evening May 02, 2022 12:00amStart: 80-34-2748ityp 1 drop(s) into the eye(s) once daily in the eveningLatanoprost Active 1 DROPS EYE-BOTH Every evening May 02, 2022 12:00amStart: 67-81-8380fkdn 0.005 drop(s) into the eye(s) once daily latanoprost (XALATAN) 0.005 % ophthalmic solution Administer 0.005 drops to both eyes nightly. 12/22/2021 Activetake 1 drop(s) into the eye(s) once daily Latanoprost 0.005 % 1 drop once a day each eye Activeloratadine 10 mg oral tablet (10 sources)Start: 12-14-2024 End: 34-71-3750qbayohwapf (Claritin) 10 MG tablet Daily 12/14/2024 Activemv- mn/om3/dha/epa/fish/lut/katheryn (OCUVITE ADULT 50 PLUS ORAL) (3 sources)mv-mn/om3/dha/epa/fish/lut/katheryn (OCUVITE ADULT 50 PLUS ORAL) Take by mouth daily. Activeomega 8-shn-cww-fish oil (Fish OiL) 300-1,000 mg capsule (3 sources)omega 7-app-qdu-fish oil (Fish OiL) 300-1,000 mg capsule Take by mouth. Activeomeprazole 20 mg delayed release oral capsule (19 sources)Proton Pump InhibitorStart: 01-16-2023 End: 96-60-4710wdfm 1 capsule by mouth every twenty-four hours as needed omeprazole (PriLOSEC) [address] capsule Take 20 mg by mouth Daily as needed 01/16/2023 12/21/2024 Discontinued (Therapy completed)Start: 08-05-2022 End: 98-82-0978nezu 20 mg by mouth once dailyOmeprazole Magnesium (Prilosec) 10 mg Susp,Delayed Release For Recon Discontinued 20 MG PO Daily 603 August 05, 2022 1:00am December 14, 2024 9:54am Malignant neoplasm of colon Malignant neoplasm of colon, unspecifiedondansetron 8 mg disintegrating oral tablet (20 sources)Serotonin-3 Receptor AntagonistStart: 47-32-6889dmsy 1 tablet by mouth every eight hours as needed for nausea and vomitingStart: 05-03-2022 End: 07-58-1636boge 1 tablet by mouth every eight hours as needed for nausea Ondansetron Hcl 8 mg tablet Discontinued 8 MG PO Q8H as needed for Nausea 30 May 03, 2022 12:00am March 24, 2023 10:40am Malignant neoplasm of colon Malignant neoplasm of colon, unspecifiedpantoprazole (14 sources)Proton Pump InhibitorStart: 05-96-4385xfiidoflpvro Refills(s) 0 Start Date: 04/13/25 Status: Ordered Repeat number: 1Start: 03-70-2332sqlf 1 tablet by mouth once dailyStart: 12-14-2024 End: 42-04-8383tfnfyiohcqdu (ProtoNix) 40 MG EC tablet Daily 12/14/2024 Active sulfamethoxazole 800 mg / trimethoprim 160 mg oral tablet (1 source)Dihydrofolate Reductase Inhibitor Antibacterial, Sulfonamide AntimicrobialStart: 87-09-4649fkct 1 tablet by mouth every twelve hoursBactrim DS 800-160 MG 1 tablet Orally Twice a day for 10 day(s) May, Active Vitamin D3 (1 source)Vitamin D3 ActiveVitamin D3 1000 intl units (25 mcg) Tab (1 source)Start: 94-04-4929kyzt 1 tablet by mouth once dailyVitamin D3 1000 intl units (25 mcg) Tab 25 mcg = 1 tab(s), Oral, Daily, Refills(s) 0 Start Date: 04/13/25 Status: Ordered Repeat number: 1 Completed/Discontinued Medications MedicationDrug Class(es)DatesSig (Normalized)Sig (Original)ascorbic acid 1000 mg extended release oral tablet (18 sources)Vitamin CStart: 05-27-2022 End: 45-85-8770uvbm 1 capsule by mouth once dailyAscorbic Acid (Vitamin C) 1,000 mg Capsule, Extended Release Discontinued 1 CAP PO Daily May 27, 2022 1:00am November 17, 2023 9:47amStart: 05-27-2022 End: 19-50-8673raur 1 capsule by mouth once dailyAscorbic Acid (Vitamin C) Discontinued 1 CAP PO Daily May 27, 2022 1:00am November 17, 2023 9:47am Start: 27-91-7895kfjs 1 capsule by mouth once dailyAscorbic Acid (Vitamin C) Active 1 CAP PO Daily May 27, 2022 1:00amStart: 88-76-5731nvgk 1 capsule by mouth once dailyAscorbic Acid (Vitamin C) Active 1 CAP PO Daily May 27, 2022 12:00amCarica Papaya (Papaya Enzyme) Tablet (13 sources)Start: 08-19-2022 End: 30-13-4144jkms 1 tablet by mouth once dailyCarica Papaya (Papaya Enzyme) Tablet Discontinued 1 TAB PO Daily August 19, 2022 1:00am June 25, 2023 12:38pmStart: 08-19-2022 End: 45-60-5023cwwi 1 tablet by mouth once dailyCarica Papaya (Papaya Enzyme) Tablet Discontinued 1 TAB PO Daily August 19, 2022 12:00am June 25, 2023 11:38amStart: 68-98-1939uqlv 1 tablet by mouth once dailyCarica Papaya (Papaya Enzyme) Tablet Active 1 TAB PO Daily August 19, 2022 12:00am celecoxib 200 mg oral capsule (20 sources)Nonsteroidal Anti-inflammatory DrugStart: 02-19-2023 End: 02-34-3124hyyl 1 capsule by mouth once dailyCelecoxib (Celebrex) 200 mg capsule Discontinued 200 MG PO Daily 60 1 July 01, 2024 12:29pm April 04, 2025 1:18pmglucosamine 500 mg oral tablet (8 sources)Start: 01-19-2024 End: 25-31-6701bzbp 1 tablet by mouth once dailyGlucosamine Hcl 500 mg tablet Discontinued 500 MG PO Daily January 19, 2024 12:00am July 01, 2024 12:06pm administer with a guigOmarb-Qs-0-Bmh-Zjq-Lwgwmnt-Ast (11 sources)Start: 05-02-2022 End: 33-48-4157dhup 3 capsules by mouth once ujlteZjvcv-Ap-7-Pia-Krk-Jrpomjh-Ast Discontinued 1 CAP PO Daily May 02, 2022 12:00am April 2:39pm Start: 05-02-2022 End: 36-64-2505bnaf 3 capsules by mouth once clrtzJdsvx-It-0-Yph-Kzr-Uamaagb-Ast Discontinued 1 CAP PO Daily May 01, 2022 11:00pm April 1:39pm Qywdd-Lj-2-Mmw-Zdu-Grchufg-Ast 1,334-910-34-80 mg Capsule (7 sources)Start: 05-02-2022 End: 92-13-6068Hvjzu-Xz-4-Hql-Mtr-Cxkvycq-Wga 1,680-228-42-80 mg Capsule Discontinued 1 CAP PO Daily April 12:00am May 03, 2022 2:39pm Start: 05-02-2022 End: 17-38-9888Aqmwm-Ef-5-Ufk-Mwi-Dmpwiub-Uap 1,693-367-47-80 mg Capsule Discontinued 1 CAP PO Daily April 11:00pm May 03, 2022 1:39pm magnesium sulfate 0.0277 meq/ml / potassium sulfate 0.0374 meq/ml / sodium sulfate 0.257 meq/ml oral solution (1 source)Start: 03-19-2023 End: 78-96-8090xwfi 177 mL by mouth in the morningsodium,potassium,mag sulfates (SUPREP) 17.5-3.13-1.6 gram recon soln Take 177 mL by mouth in the morning and 177 mL before bedtime. 4956 mL 03/19/2023 03/03/2024 Discontinued (Therapy completed)prochlorperazine 10 mg oral tablet (13 sources)PhenothiazineStart: 08-05-2022 End: 24-36-7417erpp 1 tablet by mouth every six hours as needed for nausea and vomitingProchlorperazine Maleate (Compazine) 10 mg Tablet Discontinued 10 MG PO Q6H as needed for Nausea And Vomiting 60 3 August 05, 2022 1:00am March 24, 2023 10:40am Malignant neoplasm of colon Malignant neoplasm of colon, unspecifiedsod sulf-pot chloride-mag sulf 1.479-0.188- 0.225 gram tablet (1 source)Start: 03-19-2023 End: 73-31-3941ivc sulf-pot chloride-mag sulf 1.479-0.188- 0.225 gram tablet Indications: Primary malignant neoplasm of sigmoid colon (CMS-HCC) Please see instructional sheet given by physicians office. 24 tablet 03/19/2023 03/02/2024 DiscontinuedVit C-E-Zinc Ac-Ndmy-Jmv-Zeax (Icaps Areds2) 250 mg-200 unit -12.5 mg-1 mg Capsule (11 sources)Start: 06-25-2023 End: 96-19-9892bgyn 2 capsules by mouth once dailyVit C-E-Zinc Vr-Jasc-Bon-Zeax (Icaps Areds2) 250 mg-200 unit -12.5 mg-1 mg Capsule Discontinued 2 CAP PO Daily June 25, 2023 12:00am November 17, 2023 8:48amStart: 06-25-2023 End: 50-09-3786wrst 2 capsules by mouth once dailyVit C-E-Zinc Jr-Efph-Zpv-Zeax (Icaps Areds2) 250 mg-200 unit -12.5 mg-1 mg Capsule Discontinued 2 CAP PO Daily June 25, 2023 1:00am November 17, 2023 9:48amStart: 27-69-0446smvl 2 capsules by mouth once dailyVit C-E-Zinc Ur-Grpn-Nkw-Zeax (Icaps Areds2) 250 mg- 200 unit -12.5 mg-1 mg Capsule Active 2 CAP PO Daily June 25, 2023 1:00am Start: 94-11-4126ohcu 2 capsules by mouth once dailyVit C-E-Zinc La-Qyiv-Ver-Zeax (Icaps Areds2) 250 mg-200 unit -12.5 mg-1 mg Capsule Active 2 CAP PO Daily June 25, 2023 12:00amVitamin A-Vitamin C-Vit E-Min (Ocuvite) Tablet (18 sources)Start: 05-02-2022 End: 73-62-8120krjh 1 tablet by mouth once dailyVitamin A-Vitamin C-Vit E-Min (Ocuvite) Tablet Discontinued 1 TAB PO Daily May 02, 2022 12:00am May 27, 2022 10:27amStart: 05-02-2022 End: 70-77-7958msmi 1 tablet by mouth once dailyVitamin A-Vitamin C-Vit E-Min (Ocuvite) Tablet Discontinued 1 TAB PO Daily May 01, 2022 11:00pm May 27, 2022 9:27am Problems Active Problems Problem ClassificationProblemDateDocumented DateEpisodic/ChronicAnxiety disorders (14 sources)Anxiety; Translations: [Other specified anxiety disorders]Onset: 504095-59-6660EvuvrbqIxxuoskmq infection; unspecified site (1 source)Other specified bacterial agents as the cause of diseases classified elsewhereEpisodicCancer of colon (20 sources)Malignant tumor of colon; Translations: [Malignant neoplasm of colon, unspecified]Onset: 666324-82-9601SeirkovZddpgn of colon (4 sources)Personal history of other malignant neoplasm of large intestine; Translations: [History of malignant neoplasm of colon]Onset: 03-03-2024 22-19-6403SlnezrszJesauwczrv associated with dizziness or vertigo (1 source)Benign paroxysmal vertigo, unspecified earEpisodicE Codes: Cut/pierceb (1 source)Contact with contaminated hypodermic needle, initial encounter; Translations: [CNTCT CONTAMINAT HYPODRM NEEDL INIT]Onset: 34-42-8307Cfpxubaa Esophageal disorders (9 sources)Laryngopharyngeal reflux; Translations: [Gastro-esophageal reflux disease without esophagitis]Onset: 585368-07-4002ZddceurGyuzqsjh (10 sources)Unspecified glaucoma; Translations: [Bilateral glaucoma]Onset: 134539-38-9717RsbwvuiZizkdgbqvaq chemotherapy; radiotherapy (20 sources)Patient encounter status; Translations: [Encounter for antineoplastic chemotherapy]Onset: 017375-49-2177ZujtspaRfnl wounds of extremities (4 sources)Puncture wound without foreign body of left index finger without damage to nail, initial encounter;Translations: [PW W/O FB LT IF W/O DMG NAIL INIT]Onset: 00-69-6519ShdapecvHzdoyibstlzsai (13 sources)Osteoarthritis; Translations: [Unspecified osteoarthritis, unspecified site]Onset: 329631-10-7236IfyvctwXdghh lower respiratory disease (1 source)Solitary pulmonary nodule; Translations: [Solitary pulmonary nodule] Onset: 64-42-9640ZxpybmlgQnauq lower respiratory disease (1 source)Multiple nodules of lungEpisodicOther nervous system disorders (20 sources)Peripheral neuropathy due to and following chemotherapy; 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 Other nervous system disorders (6 sources)Drug-induced polyneuropathy; Translations: [Polyneuropathy due to other toxic agents]37-77-4496EvmahujOhvux nutritional; endocrine; and metabolic disorders (1 source)Gbkrvsrszk22-69-4802FcrmcjcnDxjug nutritional; endocrine; and metabolic disorders (1 source)Overweight in adulthood with body mass index of 25 or more but less than 4416-60-7564KmuwqqzhLwjaj upper respiratory disease (12 sources)Chronic pharyngitis; Translations: [Chronic pharyngitis]Onset: 496355-82-8584ZoovkwaWpmyr upper respiratory disease (2 sources)Chronic pharyngitis; Translations: [Chronic pharyngitis]12-14-2024 ChronicOther upper respiratory disease (7 sources)Feeling of lump in throat; Translations: [Globus sensation]12-21-2024 EpisodicOther upper respiratory infections (1 source)Acute sinusitis, unspecifiedEpisodicResidual codes; unclassified (1 source)Contact with and (suspected) exposure to potentially hazardous body fluids; Translations: [CONTACT AND EXPOS POTENTL HAZ BDY FLUID]Onset: 09-18-2022 EpisodicResidual codes; unclassified (1 source)Other specified postprocedural states; Translations: [Other specified postprocedural states]Onset: 02-89-9421WebsegrlYtcvswugc malignancies (1 source)Secondary and unspecified malignant neoplasm of lymph node, unspecified; Translations: [SEC AND UNSMAL JARON LYMPH NODE UNS]Onset: 04-22-2022 ChronicUnclassified (1 source)CONTACT W/AND (SUSP) EXPOS COVID-19; Translations: [CONTACT W/AND (SUSP) EXPOS COVID-19]Onset: 53-70-8353Sixbbdwqmtio (1 source)Post-opOnset: 08-97-6604Hbtxtrdmdzzx (1 source)ProcedureOnset: 41-12-6692Upuahprlrqkh (1 source)PORT REMOVALOnset: 14-99-3260Tjbijuacedkj (2 sources)C18.9 - Malignant neoplasm of colon, unspecifiedUnclassified (2 sources)C18.9 - Malignant neoplasm of colon, unspecified,R91.8 - Other nonspecific abnormal finding of lung field Past or Other Problems Problem ClassificationProblemDateDocumented DateEpisodic/ChronicAbdominal pain (9 sources)Generalized abdominal pain; Translations: [Left lower quadrant pain] Onset: 44-71-2087TkhjzenrIabextrb of mouth; excluding dental (16 sources)Hypertrophy of salivary gland; Translations: [Hypertrophy of salivary gland]Onset: 563479-72-7279CwmtqzvoNscxi aftercare (1 source)Other chcf (current) drug therapy; Translations: [OTH ASSISTED CURRENT DRUG THERAPY]Onset: 93-06-9625EutrwqwgXdaja circulatory disease (1 source)Elevated blood-pressure reading, without diagnosis of hypertension; Translations: [ELEVATED BP READING W/O DX HTN]Onset: 10-61-6295NtnnheeqEopht complications of ; puerperium affecting management of mother (8 sources) hemorrhage; Translations: [Other immediate hemorrhage]Onset: 274742-48-6897LexwxmldTkman female genital disorders (8 sources)Pelvic congestion syndrome; Translations: [Other specified conditions associated with female genital organs and menstrual cycle]Onset: 02-20-2023 69-51-7766NfluhtlcHkuva nutritional; endocrine; and metabolic disorders (1 source)Abnormal weight loss; Translations: [ABNORMAL WEIGHT LOSS]Onset: 59-08-8659OxuxfqxeNodva screening for suspected conditions (not mental disorders or infectious disease) (20 sources)Liver function tests abnormal; Translations: [Other specified abnormal findings of blood chemistry]Onset: 618288-96-1009TrbunjhfHnlcjtdl codes; unclassified (1 source)Past history of procedure; Translations: [Other specified postprocedural states]94-49-1740AaznjzjiNaousxzpq and history of mental health and substance abuse codes (1 source)Personal history of nicotine dependence; Translations: [PERSONAL HISTORY OF NICOTINE DEPEND]Onset: 53-70-8960Tfsyyail Results Test NameValueInterpretationReference RangeFacilityCreatinine (U) [Mass/Vol]on 16-74-4746Sfssxruzma spec 2 (U) [Mass/Vol]11.00 mg/dLNOLA HealthcareComment on above:No reference range establishedCreatinine, Urine (Random)on 05-09-2025 Creatinine, Urine (Random)11.00 mg/dLNormalThe [facility] Physician GroupComment on above:Result Comment: No reference range establishedPerformed By: #### ERIN, URTP #### [facility] [address] [place] [address] USANo Panel Informationon 22-17-6201WHDA HealthcareTOTAL PROTEIN, URINEon 38-43-0494Vhechrk (U) [Mass/Vol]mg/dL0 - 9 mg/dLNOLA Healthcare Total Protein, Urineon 85-36-9418Zzgzs Protein, Urine<9Lthqik4-7Bxj [facility] Physician [facility] CenterComment on above:Result Comment: PERFORMED BY: [place] [address] PATHOLOGIST [employer]ESS BRAKE OPERATOR CECY RODRIGUEZ M.D.Performed By: #### ERIN, URTP #### [facility] [address] [place] [address] USABasophils Auto (Bld) [#/Vol]Ordered By: Isaías Jordan on 12-29-0093Ljqaqokzn (Bld) [#/Vol]0.0 10 3/uL0.0-0.1FOhioHealth Riverside Methodist HospitalBasophils/100 WBC Auto (Bld)Ordered By: Isaías Jordan on 05-04-2025 Basophils/100 WBC (Bld)0.6 %0.2-2.0[facility] Eosinophils/100 WBC Auto (Bld)Ordered By: Isaías Jordan on 05-04-2025 Eosinophils/100 WBC (Bld)1.4 %0.9-7.0[facility] Erythrocyte distribution width Auto (RBC) [Ratio]Ordered By: Isaías Jordan on 34-98-7934Zjrwjjcjbnb distribution width (RBC) [Ratio]12.2 %11.0-15.0 [facility] HospitalGlobulin Calc (S) [Mass/Vol]Ordered By: Isaías Jordan on 79-39-6719Fvdindun (S) [Mass/Vol]3.0 g/dLBrown Memorial HospitalGlomerular filtration rate (GFR) estimation in non- AmericanOrdered By: Isaías Jordan on 15-65-2570FVV/1.73 sq M.predicted among non-blacks MDRD (S/P/Bld) [Vol rate/Area]mL/min/{1.73_m2}>=60 mL/min/1.73m 2 [facility] HospitalHematocrit Auto (Bld) [Volume fraction]Ordered By: Isaías Jordan on 08-93-7949Vjjllimtlb (Bld) [Volume fraction]37.2 % 36.0-48.0[facility] HospitalHemoglobin [Mass/volume] in Blood Ordered By: Isaías Jordan on 77-72-1029Jhvxeitjey (Bld) [Mass/Vol]12.4 g/dL 12.0-16.0[facility] HospitalLaboratory - Chemistry and Chemistry - challengeOrdered By: Isaías Jordan on 84-94-2442Vpwohtq [Mass/Vol]3.6 g/dL 3.4-5.0[facility] HospitalALP [Catalytic activity/Vol]67 U/L46-116 [facility] HospitalALT [Catalytic activity/Vol]33 U/L14-59 [facility] HospitalAST [Catalytic activity/Vol]24 U/L15-37 [facility] HospitalBilirubin [Mass/Vol]0.3 mg/dL0.2-1.0[facility] HospitalCalcium [Mass/Vol]9.0 mg/dL8.5-10.1FOhioHealth Riverside Methodist HospitalChloride [Moles/Vol]106 mmol/Y75-942HoojrfxutBrown Memorial HospitalCO2 [Moles/Vol]24.2 mmol/L21.0-32.0[facility] Creatinine [Mass/Vol]0.48 mg/dLLow0.55-1.02[facility] GFR/1.73 sq M.predicted MDRD (S/P/Bld) [Vol rate/Area]mL/min/{1.73_m2}>=60 mL/min/1.73m 2FOhioHealth Riverside Methodist HospitalGlucose [Mass/Vol]114 mg/dLHigh 74-106[facility] HospitalPotassium [Moles/Vol]3.9 mmol/L3.5-5.1 [facility] HospitalProtein [Mass/Vol]6.6 g/dL6.4-8.2FHocking Valley Community Hospitalodium [Moles/Vol]141 mmol/D697-214QkpqwuspfBrown Memorial HospitalUrea nitrogen [Mass/Vol]12.0 mg/dL7.0-18.0[facility] HospitalUrea nitrogen/Creatinine [Mass ratio]25.0 mg/mgBrown Memorial HospitalLaboratory - Hematology and Cell countsOrdered By: Isaías Jordan on 15-90-9248Wfftogrm granulocytes/100 WBC (Bld)0.3 %0.0-0.5FOhioHealth Riverside Methodist HospitalLeukocytes [#/volume] corrected for nucleated erythrocytes in Blood by Automated counOrdered By: Isaías Jordan on 99-20-6939UAH corrected for nucl RBC Auto (Bld) [#/Vol]3.6 10 3/uLLow4.0-11.0 [facility] HospitalLymphocytes Auto (Bld) [#/Vol]Ordered By: Isaías Jordan on 67-49-6825Vzgwmwuybcv (Bld) [#/Vol]1.6 10 3/uL1.2-3.8 [facility] HospitalLymphocytes/100 WBC Auto (Bld)Ordered By: Isaías Jordan on 22-45-3294Mzhftckmgaa/100 WBC (Bld)43.6 %20.5-60.0[facility] HospitalMCH Auto (RBC) [Entitic mass]Ordered By: Isaías Jordan on 68-71-5355JER (RBC) [Entitic mass]30.8 pg26.7-34.0[facility] HospitalMCHC Auto (RBC) [Mass/Vol]Ordered By: Isaías Jordan on 64-72-0357XROP (RBC) [Mass/Vol]33.3 g/dL29.9-35.2FOhioHealth Riverside Methodist HospitalMCV Auto (RBC) [Entitic vol]Ordered By: Isaías Jordan on 16-81-7662MWM (RBC) [Entitic vol]92.3 fL81.0-99.0[facility] HospitalMonocytes Auto (Bld) [#/Vol]Ordered By: Isaías Jordan on 16-27-7321Yrwkvhhom (Bld) [#/Vol]0.2 10 3/uLLow0.3-0.8[facility] HospitalMonocytes/100 WBC Auto (Bld)Ordered By: Isaías Jordan on 46-22-0392Ooewvxdgy/100 WBC (Bld)5.5 %1.7-12.0[facility] HospitalNeutrophils Auto (Bld) [#/Vol]Ordered By: Isaías Jordan on 43-52-5751Toterxtjhda (Bld) [#/Vol]1.8 10 3/uL1.4-6.5 [facility] HospitalNeutrophils/100 WBC Auto (Bld)Ordered By: Isaías Jordan on 20-79-2799Llwbrkslqsb/100 WBC (Bld)48.6 %43.0-75.0[facility] HospitalNo Panel InformationOrdered By: Isaías Jordan on 34-70-2923Rfyvtebajnx # (Auto)0.1 10 3/uL0.0-0.7FOhioHealth Riverside Methodist HospitalImmature Granulocyte # (Auto)0.01 10 3/uL0.00-0.03[facility] HospitalPlatelet mean volume Auto (Bld) [Entitic vol]Ordered By: Isaías Jordan on 19-39-5967Qmxqlcxf mean volume (Bld) [Entitic vol]10.8 fL9.5-13.5 [facility] HospitalPlatelets Auto (Bld) [#/Vol]Ordered By: Isaías Jordan on 31-75-7895Yrdsjoanc (Bld) [#/Vol]199 10 3/hV383-853XtiwgoymtBrown Memorial HospitalRBC Auto (Bld) [#/Vol]Ordered By: Isaías Jordan on 13-96-2094WVY (Bld) [#/Vol]4.03 10 6/uLLow4.20-5.40[facility] Hospitalerum or plasma albumin/globulin mass ratioOrdered By: Isaías Jordan on 22-54-2353Codbmrs/Globulin [Mass ratio]1.2 {ratio}[facility] Hospitalerum or plasma anion gap determinationOrdered By: Isaías Jordan on 71-93-1924Aoeuy gap [Moles/Vol]14.7 mmol/LFOhioHealth Riverside Methodist Hospital Basophils Auto (Bld) [#/Vol]Ordered By: Isaías Jordan on 12-77-1631Lappjmdwj (Bld) [#/Vol]0.0 10 3/uL0.0-0.1FOhioHealth Riverside Methodist HospitalBasophils/100 WBC Auto (Bld)Ordered By: Isaías Jordan on 42-35-0004Qouggjyiv/100 WBC (Bld) 0.6 %0.2-2.0[facility] HospitalEosinophils/100 WBC Auto (Bld) Ordered By: Isaías Jordan on 04-51-9843Mpecppjnflr/100 WBC (Bld)1.2 %0.9-7.0 [facility] HospitalErythrocyte distribution width Auto (RBC) [Ratio]Ordered By: Isaías Jordan on 42-92-6282Fyzazqokfei distribution width (RBC) [Ratio]12.6 %11.0-15.0[facility] HospitalGlobulin Calc (S) [Mass/Vol]Ordered By: Isaías Jordan on 81-08-5887Sevzxbuf (S) [Mass/Vol]3.6 g/dLBrown Memorial HospitalGlomerular filtration rate (GFR) estimation in non- AmericanOrdered By: Isaías Jordan on 43-18-2144AAP/1.73 sq M.predicted among non-blacks MDRD (S/P/Bld) [Vol rate/Area]mL/min/{1.73_m2}>=60 mL/min/1.73m 2FOhioHealth Riverside Methodist HospitalHematocrit Auto (Bld) [Volume fraction]Ordered By: Isaías Jordan on 14-91-0335Esaaopjdlm (Bld) [Volume fraction]40.9 %36.0-48.0[facility] HospitalHemoglobin [Mass/volume] in BloodOrdered By: Isaías Jordan on 63-06-3712Cdoetrgmnr (Bld) [Mass/Vol]13.7 g/dL12.0-16.0[facility] HospitalIron binding capacity [Mass/volume] in Serum or PlasmaOrdered By: Isaías Jordan on 91-68-7609Wyet binding capacity [Mass/Vol]271.0 ug/dL250.0-450.0[facility] HospitalIron saturation [Mass Fraction] in Serum or PlasmaOrdered By: Isaías Jordan on 52-53-9048Gipr saturation [Mass fraction]19.2 % [facility] HospitalLaboratory - Chemistry and Chemistry - challengeOrdered By: Isaías Jordan on 03-20-4061Iucoerd [Mass/Vol]3.9 g/dL 3.4-5.0[facility] HospitalALP [Catalytic activity/Vol]86 U/L46-116 [facility] HospitalALT [Catalytic activity/Vol]19 U/L14-59 [facility] HospitalAST [Catalytic activity/Vol]20 U/L15-37 [facility] HospitalBilirubin [Mass/Vol]0.6 mg/dL0.2-1.0[facility] HospitalCalcium [Mass/Vol]9.6 mg/dL8.5-10.1FOhioHealth Riverside Methodist HospitalChloride [Moles/Vol]103 mmol/C32-858WrbezhsizBrown Memorial HospitalCO2 [Moles/Vol]25.8 mmol/L21.0-32.0[facility] Creatinine [Mass/Vol]0.62 mg/dL0.55-1.02[facility] Ferritin [Mass/Vol]229.0 ng/mL8.0-252.0[facility] HospitalGFR/1.73 sq M.predicted MDRD (S/P/Bld) [Vol rate/Area]mL/min/{1.73_m2}>=60 mL/min/1.73m 2FOhioHealth Riverside Methodist HospitalGlucose [Mass/Vol]103 mg/fI04-266JgqeizpofBrown Memorial HospitalIron [Mass/Vol]52.0 ug/dL50.0-170.0[facility] HospitalPotassium [Moles/Vol]4.2 mmol/L3.5-5.1FOhioHealth Riverside Methodist HospitalProtein [Mass/Vol]7.5 g/dL6.4-8.2FHocking Valley Community Hospitalodium [Moles/Vol]139 mmol/K745-138NyitjppuvBrown Memorial HospitalUrea nitrogen [Mass/Vol]14.0 mg/dL7.0-18.0[facility] HospitalUrea nitrogen/Creatinine [Mass ratio]22.6 mg/mgBrown Memorial Hospital Laboratory - Hematology and Cell countsOrdered By: Isaías Jordan on 42-55-8534MHM (Bld) [Velocity]15 mm/h<=30[facility] Immature granulocytes/100 WBC (Bld)0.2 %0.0-0.5FOhioHealth Riverside Methodist Hospital Leukocytes [#/volume] corrected for nucleated erythrocytes in Blood by Automated counOrdered By: Isaías Jordan on 11-74-0946IHG corrected for nucl RBC Auto (Bld) [#/Vol]6.4 10 3/uL4.0-11.0[facility] HospitalLymphocytes Auto (Bld) [#/Vol]Ordered By: Isaías Jordan on 27-99-9129Ovhetypgkdt (Bld) [#/Vol]1.7 10 3/uL1.2-3.8[facility] HospitalLymphocytes/100 WBC Auto (Bld)Ordered By: Isaías Jordan on 05-74-7002Kvievpuokig/100 WBC (Bld) 26.5 %20.5-60.0[facility] HospitalMCH Auto (RBC) [Entitic mass] Ordered By: Isaías Jordan on 68-64-0537LXD (RBC) [Entitic mass]31.5 pg 26.7-34.0[facility] HospitalMCHC Auto (RBC) [Mass/Vol]Ordered By: Isaías Jordan on 52-65-1452VNOR (RBC) [Mass/Vol]33.5 g/dL29.9-35.2FOhioHealth Riverside Methodist HospitalMCV Auto (RBC) [Entitic vol]Ordered By: Isaías Jordan on 52-65-0249VDJ (RBC) [Entitic vol]94.0 fL81.0-99.0[facility] HospitalMonocytes Auto (Bld) [#/Vol]Ordered By: Isaías Jordan on 04-23-2025 Monocytes (Bld) [#/Vol]0.5 10 3/uL0.3-0.8[facility] Monocytes/100 WBC Auto (Bld)Ordered By: Isaías Jordan on 04-23-2025 Monocytes/100 WBC (Bld)7.8 %1.7-12.0[facility] HospitalNeutrophils Auto (Bld) [#/Vol]Ordered By: Isaías Jordan on 62-21-9995Fuirmcbptpe (Bld) [#/Vol]4.1 10 3/uL1.4-6.5FOhioHealth Riverside Methodist HospitalNeutrophils/100 WBC Auto (Bld)Ordered By: Isaías Jordan on 74-65-0460Gzhkknxkwgw/100 WBC (Bld) 63.7 %43.0-75.0[facility] HospitalNo Panel InformationOrdered By: Isaías Jordan on 51-73-0172Bugvddywoim # (Auto)0.1 10 3/uL0.0-0.7FOhioHealth Riverside Methodist HospitalHuman Chorionic Gonadotropin, QualNegativeNEGATIVE [facility] HospitalImmature Granulocyte # (Auto)0.01 10 3/uL 0.00-0.03[facility] HospitalPlatelet mean volume Auto (Bld) [Entitic vol]Ordered By: Isaías Jordan on 86-91-2278Bwgbilow mean volume (Bld) [Entitic vol]11.3 fL9.5-13.5FOhioHealth Riverside Methodist HospitalPlatelets Auto (Bld) [#/Vol]Ordered By: Isaías Jordan on 84-33-9252Augqppycs (Bld) [#/Vol]197 10 3/tP117-003AzbeogfzjBrown Memorial HospitalRBC Auto (Bld) [#/Vol] Ordered By: Isaías Jordan on 29-92-3015MSR (Bld) [#/Vol]4.35 10 6/uL 4.20-5.40[facility] Hospitalerum or plasma albumin/globulin mass ratioOrdered By: Isaías Jordan on 56-21-3687Csjfcyk/Globulin [Mass ratio]1.1 {ratio}[facility] Hospitalerum or plasma anion gap determination Ordered By: Isaías Jordan on 75-30-6630Kteah gap [Moles/Vol]14.4 mmol/L [facility] Hospitalerum or plasma cancer antigen 125 (CA-125) measurement (units/volume)Ordered By: Isaías Jordan on 66-11-6091Ywfuun Ag 125 Qn11.5 [arb'U]/mL0.0-38.1FOhioHealth Riverside Methodist HospitalComment on above: [employer] Electrochemiluminescence Immunoassay(ECLIA)Values obtained with different assay methods or kits cannotbe used interchangeably. Results cannot be interpreted asabsolute evidence of the presence or absence of malignantdisease.Performed at: [address] [id number] Director: Edilson Saunders PhD, Phone: [phone] Visit Summaryon 21-05-5238Lwrqoiibpo Visit SummaryAmbulatory Visit Summary MARYSOL JACOBSON :1965 [...] signed up for this yet, please contact [employer] at [phone] to get signed up today. Language Information Language assistance services are available as needed. [facility] HospitalCT NEEDLE BIOPSY LUNG PERCUTANEOUS W IMAGING GUIDANCEon 41-97-2082RV NEEDLE BIOPSY LUNG PERCUTANEOUS W IMAGING GUIDANCEIMPRESSION: [...] Signed by: Ender Sanchez MD 04/12/25 Final resultNoChildren's Hospital Colorado North Campusurgical Specimenon 04-11-2025 [facility] [address] [place] [address] FINAL SURGICAL PATHOLOGY REPORT Patient Name: MARYSOL JACOBSON Accession No: [id number] Age Sex: 1965 Location: DIS Account No: [id number] Collected: 04/11/2025 [facility] Rec No: [id number] Received: 04/12/2025 Attend Phys: ENDER SANCHEZ Completed: [...] biopsy bag where the core is present. PSW/BEH CPT: 34251 X1 68820 X2 64743 X1 J MIC DONNELLY M.D. 04/14/2025 Electronically signed out by [address] [place], [place] [address]Comment on above:Performed By: #### PRESLEY #### [facility] [address] [place], [place] [id number] BH CHEST (2 VW)on 24-59-8766QD CHEST (2 VW)IMPRESSION: 1. No evidence of [...] Signed by: Ender Sanchez MD 04/11/25 Final resultNormalChildren'S Hospital Colorado South CampusINR in Platelet poor plasma by Coagulation assayOrdered By: Outside Provider on 54-66-0446WHS Coag (PPP) [Relative time]1.03 {INR}[facility] HospitalComment on above: DESIRED INR:2.0-3.0 CONDITIONS NOT LISTED BELOW2.5-3.5 FOR PROSTHETIC HEART VALVE REPLACEMENT2.5-3.5 RECURRENT THROMBOSISProthrombin time (PT)Ordered By: Outside Provider on 02-01-7576IC Coag (PPP) [Time]10.9 s9.0-11.6FOhioHealth Riverside Methodist HospitalGLUCOSE POCT GLUCOMETERSon 57-35-1844Kssujqm [Mass/Vol] 100 mg/dLNOLA HealthcareComment on above:Random Glucose Reference Range is dependent on time and content of last meal. Glucose of more than 200 mg/dL in a nonstressed, ambulatory subject supports the diagnosis of Diabetes Mellitus. University HospitalGlucose Poct Glucometerson 28-78-2501Kxlsreb [Mass/Vol]100 mg/dL NormalThe Hugh Chatham Memorial Hospital Physician GroupComment on above:Result Comment: Random Glucose Reference Range is dependent on time and content of last meal. Glucose of more than 200 mg/dL in a nonstressed, ambulatory subject supports the diagnosis of Diabetes Mellitus. PERFORMED BY: [place] [address] PATHOLOGIST PRESS BRAKE OPERATOR CECY RODRIGUEZ M.D.Performed By: #### GLULS #### Point of Care testing ,PET tumor init tx strat sb-mton 62-31-4528ZKT tumor init tx strat sb-mt [facility] [address] Nuclear Medicine Report Signed Patient: Marysol Jacobson MR#: [id number] 22 : 1965 Acct:[id number] Age/Sex: 59 / F ADM Date: 03/30/25 Loc: Room: Type: [facility] RCR Attending Dr: Randy Turner STAGE PRODUCER Copies to: Andres Wallis Jr, DO Mary [...] Jr., D.OJennifer 03/30/2025 11:44 AM Dictation Location: [place] [address] Transcribed By: [facility] 03/30/25 1144 Dictated By: Andres Wallis Jr 03/30/25 1134 Signed By: 03/30/[address] Physician GroupBasophils Auto (Bld) [#/Vol] Ordered By: Isaías Jrodan on 74-92-5506Zcvpvcnba (Bld) [#/Vol]0.0 10 3/uL 0.0-0.1FOhioHealth Riverside Methodist HospitalBasophils/100 WBC Auto (Bld)Ordered By: Isaías Jordan on 46-04-4233Gcnhccosa/100 WBC (Bld)0.6 %0.2-2.0[facility] HospitalEosinophils/100 WBC Auto (Bld)Ordered By: Isaías Jordan on 79-07-7843Cewsscxmfcp/100 WBC (Bld)2.1 %0.9-7.0[facility] HospitalErythrocyte distribution width Auto (RBC) [Ratio]Ordered By: Isaías Jordan on 14-16-9166Nitotgezxko distribution width (RBC) [Ratio]13.2 %11.0-15.0[facility] HospitalGlobulin Calc (S) [Mass/Vol]Ordered By: Isaías Jordan on 05-30-1841Dvntyium (S) [Mass/Vol]3.7 g/dLBrown Memorial HospitalGlomerular filtration rate (GFR) estimation in non- AmericanOrdered By: Isaías Jordan on 59-60-0268KBM/1.73 sq M.predicted among non-blacks MDRD (S/P/Bld) [Vol rate/Area]mL/min/{1.73_m2}>=60 mL/min/1.73m 2FOhioHealth Riverside Methodist HospitalHematocrit Auto (Bld) [Volume fraction]Ordered By: Isaías Jordan on 98-62-6739Djgszcoxav (Bld) [Volume fraction]41.6 %36.0-48.0[facility] HospitalHemoglobin [Mass/volume] in BloodOrdered By: Isaías Jordan on 01-61-0303Quisymdcvy (Bld) [Mass/Vol]13.9 g/dL12.0-16.0[facility] HospitalLaboratory - Chemistry and Chemistry - challengeOrdered By: Isaías Jordan on 03-17-2025 Albumin [Mass/Vol]3.8 g/dL3.4-5.0[facility] HospitalALP [Catalytic activity/Vol]81 U/P08-499TrzurqljwBrown Memorial HospitalALT [Catalytic activity/Vol]24 U/O69-45LeeutrxmtBrown Memorial HospitalAST [Catalytic activity/Vol]22 U/I21-56LdiuzstpdBrown Memorial HospitalBilirubin [Mass/Vol]0.5 mg/dL0.2-1.0[facility] HospitalCalcium [Mass/Vol]9.1 mg/dL 8.5-10.1FOhioHealth Riverside Methodist HospitalChloride [Moles/Vol]105 mmol/L98-107 [facility] HospitalCO2 [Moles/Vol]27.3 mmol/L21.0-32.0[facility] HospitalCreatinine [Mass/Vol]0.57 mg/dL0.55-1.02[facility] HospitalGFR/1.73 sq M.predicted MDRD (S/P/Bld) [Vol rate/Area] mL/min/{1.73_m2}>=60 mL/min/1.73m 2FOhioHealth Riverside Methodist HospitalGlucose [Mass/Vol]100 mg/hT55-065QwfkymvlgBrown Memorial HospitalPotassium [Moles/Vol] 3.9 mmol/L3.5-5.1FOhioHealth Riverside Methodist HospitalProtein [Mass/Vol]7.5 g/dL 6.4-8.2FHocking Valley Community Hospitalodium [Moles/Vol]140 mmol/U164-975 [facility] HospitalUrea nitrogen [Mass/Vol]13.0 mg/dL7.0-18.0 [facility] HospitalUrea nitrogen/Creatinine [Mass ratio]22.8 mg/mg [facility] HospitalLaboratory - Hematology and Cell countsOrdered By: Isaías Jordan on 30-36-7079Mkyffsjb granulocytes/100 WBC (Bld)0.2 % 0.0-0.5FOhioHealth Riverside Methodist HospitalLeukocytes [#/volume] corrected for nucleated erythrocytes in Blood by Automated counOrdered By: Isaías Jordan on 67-86-0118XGS corrected for nucl RBC Auto (Bld) [#/Vol]4.9 10 3/uL4.0-11.0 [facility] HospitalLymphocytes Auto (Bld) [#/Vol]Ordered By: Isaías Jordan on 47-57-6177Vnkzdlflrdv (Bld) [#/Vol]1.5 10 3/uL1.2-3.8 [facility] HospitalLymphocytes/100 WBC Auto (Bld)Ordered By: Isaías Jordan on 90-29-5210Oowghajtvxk/100 WBC (Bld)31.1 %20.5-60.0[facility] Auto (RBC) [Entitic mass]Ordered By: Isaías Jordan on 70-90-2291KPK (RBC) [Entitic mass]31.9 pg26.7-34.0[facility] HospitalMCHC Auto (RBC) [Mass/Vol]Ordered By: Isaías Jordan on 17-35-3669MRQO (RBC) [Mass/Vol]33.4 g/dL29.9-35.2FOhioHealth Riverside Methodist HospitalMCV Auto (RBC) [Entitic vol]Ordered By: Isaías Jordan on 87-87-9395XRZ (RBC) [Entitic vol]95.4 fL81.0-99.0[facility] HospitalMonocytes Auto (Bld) [#/Vol]Ordered By: Isaías Jordan on 78-62-5830Uvhejwibe (Bld) [#/Vol]0.5 10 3/uL0.3-0.8[facility] HospitalMonocytes/100 WBC Auto (Bld)Ordered By: Isaías Jordan on 01-77-6202Zyfmbgjty/100 WBC (Bld)9.9 % 1.7-12.0[facility] HospitalNeutrophils Auto (Bld) [#/Vol]Ordered By: Isaías Jordan on 05-03-8122Ghohtkxykwd (Bld) [#/Vol]2.7 10 3/uL1.4-6.5 [facility] HospitalNeutrophils/100 WBC Auto (Bld)Ordered By: Isaías Jordan on 23-91-0256Hcjbhlxfmua/100 WBC (Bld)56.1 %43.0-75.0[facility] HospitalNo Panel InformationOrdered By: Isaías Jordan on 32-89-0481Lzbarlypozx # (Auto)0.1 10 3/uL0.0-0.7FOhioHealth Riverside Methodist HospitalImmature Granulocyte # (Auto)0.01 10 3/uL0.00-0.03[facility] HospitalPlatelet mean volume Auto (Bld) [Entitic vol]Ordered By: Isaías Jordan on 83-96-2459Oobnoczv mean volume (Bld) [Entitic vol]10.4 fL9.5-13.5 [facility] HospitalPlatelets Auto (Bld) [#/Vol]Ordered By: Isaías Jordan on 97-79-1033Xkpoerdrn (Bld) [#/Vol]206 10 3/bB066-469CuxzwcidvBrown Memorial HospitalRBC Auto (Bld) [#/Vol]Ordered By: Isaías Jordan on 44-25-3809WVI (Bld) [#/Vol]4.36 10 6/uL4.20-5.40Cl[facility] Hospitalerum or plasma albumin/globulin mass ratioOrdered By: Isaías Jordan on 09-55-5555Bbwnvsz/Globulin [Mass ratio]1.0 {ratio}[facility] Hospitalerum or plasma anion gap determinationOrdered By: Isaías Jordan on 24-95-5531Nmgrk gap [Moles/Vol]11.6 mmol/LFOhioHealth Riverside Methodist Hospital Pathology Request for Lab Corpon 11-60-0666Dvkrcuzxl Request for Lab CorpNormal The [facility] Physician GroupComment on above:Order Comment: GI SPECIMENResult Comment: See report. Scanned copy available in EMR. PERFORMED BY: [place] [address] PATHOLOGIST PRESS BRAKE OPERATOR CECY RODRIGUEZ M.D.Performed By: #### [facility] TO [facility] #### [place] [address] USABasophils Auto (Bld) [#/Vol]Ordered By: Sandro Chin on 75-74-5737Hoovznkjk (Bld) [#/Vol]0.0 10 3/uL0.0-0.1FOhioHealth Riverside Methodist HospitalBasophils/100 WBC Auto (Bld)Ordered By: Sandro Chin on 12-25-2024 Basophils/100 WBC (Bld)0.8 %0.2-2.0[facility] HospitalCholesterol in LDL Calc [Mass/Vol]Ordered By: Sandro Chin on 52-94-6973Rhxrpecijnl in LDL [Mass/Vol]157.0 mg/dLBrown Memorial HospitalComment on above:<100 mg/dl PMXSRFG497-940 mg/dl NEAR OR ABOVE YSIQYLV156-967 mg/dl BORDERLINE CMUM117-173 mg/dl HIGH>190 mg/dl VERY HIGHCholesterol in VLDL Calc [Mass/Vol] Ordered By: Sandro Chin on 53-69-2702Wjfyqmkqvhn in VLDL [Mass/Vol]14.0 mg/dL [facility] HospitalEosinophils/100 WBC Auto (Bld)Ordered By: Sandro Chin on 55-73-2526Kyihaycqotv/100 WBC (Bld)1.5 %0.9-7.0[facility] HospitalErythrocyte distribution width Auto (RBC) [Ratio]Ordered By: Sandro Chin on 94-02-9011Lgpzicxiadk distribution width (RBC) [Ratio]13.4 % 11.0-15.0[facility] HospitalEstimated glomerular filtration rate (GFR) non- AmericanOrdered By: Sandro Chin on 81-89-0257YXO/1.73 sq M.predicted among non-blacks MDRD (S/P/Bld) [Vol rate/Area]mL/min/{1.73_m2}>=60 mL/min/1.73m 2FOhioHealth Riverside Methodist HospitalGlobulin Calc (S) [Mass/Vol] Ordered By: Sandro Chin on 35-18-1167Icomlxzb (S) [Mass/Vol]3.5 g/dLBrown Memorial HospitalGlucose mean value [Mass/volume] in Blood Estimated from glycated hemoglobinOrdered By: Sandro Chin on 46-21-6131Vmpnpuv glucose Estimated from glycated hemoglobin (Bld) [Mass/Vol]111 mg/dLBrown Memorial HospitalHematocrit Auto (Bld) [Volume fraction]Ordered By: Sandro Chin on 79-76-1098Yddjlpczqt (Bld) [Volume fraction]41.8 %36.0-48.0[facility] HospitalHemoglobin A1c percentageOrdered By: Sandro Chin on 12-25-2024 HbA1c (Bld) [Mass fraction]5.5 %4.5-6.2FOhioHealth Riverside Methodist HospitalComment on above:ADA RECOMMENDED LIMIT 4.0 - 6.0ADA THERAPEUTIC TARGET < 7.0ACTION SUGGESTED> 7.0Hemoglobin [Mass/volume] in BloodOrdered By: Sandro Chin on 97-28-1919Ovqriadwkd (Bld) [Mass/Vol]13.9 g/dL12.0-16.0[facility] HospitalLaboratory - Chemistry and Chemistry - challengeOrdered By: Sandro Chin on 69-71-6269Ziokggm [Mass/Vol]4.0 g/dL3.4-5.0[facility] HospitalALP [Catalytic activity/Vol]76 U/O25-720IrqxokaboBrown Memorial Hospital ALT [Catalytic activity/Vol]24 U/U98-09FcroeppavBrown Memorial HospitalAST [Catalytic activity/Vol]14 U/FYqi09-61TvjqpgxoaBrown Memorial HospitalBilirubin [Mass/Vol]0.6 mg/dL0.2-1.0[facility] HospitalCalcium [Mass/Vol]9.6 mg/dL8.5-10.1FOhioHealth Riverside Methodist HospitalChloride [Moles/Vol]106 mmol/L 98-107[facility] HospitalCholesterol [Mass/Vol]219 mg/dLHigh<=200 [facility] HospitalCholesterol in HDL [Mass/Vol]48 mg/dL40-60 [facility] HospitalComment on above:> or =60 mg/dl - LOW CARDIOVASCULAR RISK<40 mg/dl - HIGH CARDIOVASCULAR RISKCO2 [Moles/Vol]28.6 mmol/L21.0-32.0[facility] HospitalCreatinine [Mass/Vol]0.67 mg/dL 0.55-1.02[facility] HospitalGFR/1.73 sq M.predicted MDRD (S/P/Bld) [Vol rate/Area]mL/min/{1.73_m2}>=60 mL/min/1.73m 2FOhioHealth Riverside Methodist HospitalGlucose [Mass/Vol]88 mg/xQ26-525DjxdwedyoBrown Memorial HospitalPotassium [Moles/Vol]3.9 mmol/L3.5-5.1FOhioHealth Riverside Methodist HospitalProtein [Mass/Vol] 7.5 g/dL6.4-8.2FHocking Valley Community Hospitalodium [Moles/Vol]144 mmol/L 136-145[facility] HospitalTriglyceride [Mass/Vol]70 mg/dL<=150 [facility] HospitalUrea nitrogen [Mass/Vol]19.0 mg/dLHigh7.0-18.0 [facility] HospitalUrea nitrogen/Creatinine [Mass ratio]28.4 mg/mg [facility] HospitalLaboratory - Hematology and Cell countsOrdered By: Sandro Chin on 86-27-8142Ucpyvuog granulocytes/100 WBC (Bld)0.2 %0.0-0.5 [facility] HospitalLeukocytes [#/volume] corrected for nucleated erythrocytes in Blood by Automated counOrdered By: Sandro Chin on 83-51-3893UUW corrected for nucl RBC Auto (Bld) [#/Vol]4.8 10 3/uL4.0-11.0[facility] HospitalLymphocytes Auto (Bld) [#/Vol]Ordered By: Sandro Chin on 77-60-6407Frokxhyakov (Bld) [#/Vol]1.7 10 3/uL1.2-3.8[facility] HospitalLymphocytes/100 WBC Auto (Bld)Ordered By: Sandro Chin on 12-25-2024 Lymphocytes/100 WBC (Bld)36.1 %20.5-60.0[facility] Auto (RBC) [Entitic mass]Ordered By: Sandro Chin on 31-30-2459FZF (RBC) [Entitic mass]31.8 pg26.7-34.0[facility] HospitalMC Auto (RBC) [Mass/Vol]Ordered By: Sandro Chin on 91-92-1485NQJL (RBC) [Mass/Vol]33.3 g/dL 29.9-35.2FOhioHealth Riverside Methodist HospitalMCV Auto (RBC) [Entitic vol]Ordered By: Sandro Chin on 54-29-3294TXQ (RBC) [Entitic vol]95.7 fL81.0-99.0[facility] HospitalMonocytes Auto (Bld) [#/Vol]Ordered By: Sandro Chin on 37-74-9484Ndfvzyykk (Bld) [#/Vol]0.3 10 3/uL0.3-0.8[facility] HospitalMonocytes/100 WBC Auto (Bld)Ordered By: Sandro Chin on 12-25-2024 Monocytes/100 WBC (Bld)6.8 %1.7-12.0[facility] HospitalNeutrophils Auto (Bld) [#/Vol]Ordered By: Sandro Chin on 99-08-9679Aqfdnmpeyac (Bld) [#/Vol]2.6 10 3/uL1.4-6.5FOhioHealth Riverside Methodist HospitalNeutrophils/100 WBC Auto (Bld)Ordered By: Sandro Chin on 11-37-7080Ccskaetrwhd/100 WBC (Bld)54.6 % 43.0-75.0[facility] HospitalNo Panel InformationOrdered By: Sandro Chin on 24-10-8052Jcexxkmyvgs # (Auto)0.1 10 3/uL0.0-0.7FOhioHealth Riverside Methodist HospitalImmature Granulocyte # (Auto)0.01 10 3/uL0.00-0.03[facility] HospitalPlatelet mean volume Auto (Bld) [Entitic vol]Ordered By: Sandro Chin on 83-52-3468Ehmtrsjl mean volume (Bld) [Entitic vol]10.9 fL 9.5-13.5FOhioHealth Riverside Methodist HospitalPlatelets Auto (Bld) [#/Vol]Ordered By: Sandro Chin on 70-19-5792Dqbpqvrpf (Bld) [#/Vol]210 10 3/uM344-699YdygurhumBrown Memorial HospitalRBC Auto (Bld) [#/Vol]Ordered By: Sandro Chin on 28-15-8889FUP (Bld) [#/Vol]4.37 10 6/uL4.20-5.40[facility] Hospitalerum or plasma albumin/globulin mass ratioOrdered By: Sandro Chin on 78-04-8855Qejxons/Globulin [Mass ratio]1.1 {ratio}[facility] Hospitalerum or plasma anion gap determinationOrdered By: Sandro Chin on 98-27-5677Fwdne gap [Moles/Vol]13.3 mmol/LFHocking Valley Community Hospitalerum or plasma total cholesterol/high density lipoprotein (HDL) cholesterol mass rat Ordered By: Sandro Chin on 70-83-7893Cjynhmzgrjh.total/Cholesterol in HDL [Mass ratio]4.6 {ratio}[facility] HospitalComment on above:3.3 - 4.4 LOW RISK4.4 - 7.1 AVERAGE RISK7.1 - 11.0 MODERATE RISK>11.0 HIGH RISKChlamydia trachomatis rRNA [Presence] in Cervix by MARIVEL with probe detectionOrdered By: Sandro Chin on 12-20-2024. trachomatis rRNA MARIVEL+probe Ql (Cvx)NegativeNegative [facility] HospitalNeisseria gonorrhoeae rRNA [Presence] in Cervix by MARIVEL with probe detectionOrdered By: Sandro Chin on 12-20-2024N. gonorrhoeae rRNA MARIVEL+probe Ql (Cvx)NegativeNegativeBrown Memorial HospitalComment on above:Performed at: WB - [facility] [id number] Director: Che Swenson MD, Phone: [phone] at: =G - [facility] [address] [id number] Director: Che Swenson MD, Phone: [phone] Panel InformationOrdered By: Sandro Chin on 73-78-0113RH Pap w/Ct-Ng & HPV (Off-Site)Note.[facility] Comment on above:TESTS RESULT FLAG UNITS REF RANGE LAB Clinician Provided Cytology Information No. of containers..01 ThinPrep VialDIAGNOSIS: 01 NEGATIVE FORINTRAEPITHELIAL LESION OR MALIGNANCY. CELLULAR CHANGES ASSOCIATED WITH ATROPHY AND INFLAMMATION AREPRESENT.Specimen adequacy: 01 Satisfactory for evaluation. Endocervical component may not be distinguished in cases of atrophy.Performed by: 01 Nella Hines, Multimedia Project Manager ([facility]). 01Note: Note 01 The Pap smear is a screening test designed to aid in the detection of premalignant and malignant conditions of the uterine cervix. It is not a diagnostic procedure and should not be used as the sole means of detecting cervical cancer. Both false-positive and false-negative reports do occur.Test Methodology: Note 01 The Zipdial(R) Flour Worker was unable to read this specimen. Therefore a manual review was performed.. 01 The HPV DNA reflex criteria were not met with this specimen result therefore, no HPV testing was performed. FLAG LEGEND: L-Low Normal,H-High Normal,LL-Alert Low,HH-Alert High <-Panic Low,>- Panic High,A-Abnormal,AA-Critical Abnormal Performed at:01 [facility] [employer] [address] Che Swenson MD, Kng IG, CtNg, rfx HPV Aptimaon 63-36-3211OHR Chlamydia NAANegativeNormalNegativeThe [facility] Physician GroupComment on above:Performed By: #### PAP #### [facility] ,PAP GonococcusNegativeNormalNegativeThe [facility] Physician GroupComment on above:Result Comment: Performed at: - [facility] [address], [place] [id number] Bottle Blowing Machine Tender: Che Swenson MD, Phone: [phone] Performed at: =[facility] - [facility] [address] [place], [place] [id number] Bottle Blowing Machine Tender: Che Swenson MD, Phone: [phone] PERFORMED BY: [facility] [place] [address] PATHOLOGIST PRESS BRAKE OPERATOR CECY RODRIGUEZ M.D.Performed By: #### PAP [id number] #### [facility] ,Pap IGNoteNormal.[facility] Physician GroupComment on above:Result Comment: TESTS RESULT FLAG UNITS REF RANGE LAB Clinician Provided Cytology Information No. of containers..01 ThinPrep Vial DIAGNOSIS: 01 NEGATIVE FOR INTRAEPITHELIAL LESION OR MALIGNANCY. CELLULAR CHANGES ASSOCIATED WITH ATROPHY AND INFLAMMATION ARE PRESENT. Specimen adequacy: 01 Satisfactory for evaluation. Endocervical component may not be distinguished in cases of atrophy. Performed by: Kenton Hines, Multimedia Project Manager ([facility]) . 01 Note: Note 01 The Pap smear is a screening test designed to aid in the detection of premalignant and malignant conditions of the uterine cervix. It is not a diagnostic procedure and should not be used as the sole means of detecting cervical cancer. Both false-positive and false-negative reports do occur. Test Methodology: Note 01 The Thin Prep(R) Flour Worker was unable to read this specimen. Therefore a manual review was performed. . 01 The HPV DNA reflex criteria were not met with this specimen result therefore, no HPV testing was performed. FLAG LEGEND: L-Low Normal,H-High Normal,LL-Alert Low,HH-Alert High <-Panic Low,>-Panic High,A-Abnormal,AA-Critical Abnormal Performed at: 01 WB [facility] [address] [address] Che Swenson MD, Vvjrjjkdx By: #### PAP [id number] #### [facility] ,Basophils Auto (Bld) [#/Vol]on 10-95-7606Fcwuijjet (Bld) [#/Vol]Automated basophil count0.0-0.1FOhioHealth Riverside Methodist HospitalBasophils/100 WBC Auto (Bld)on 81-68-9002Pvqrtnjhl/100 WBC (Bld)Automated basophil %0.2-2.0[facility] HospitalEosinophils/100 WBC Auto (Bld)on 08-24-2024 Eosinophils/100 WBC (Bld)Automated eosinophil %0.9-7.0[facility] HospitalErythrocyte distribution width Auto (RBC) [Ratio]on 14-09-9162Nxsktghpgeo distribution width (RBC) [Ratio]Erythrocyte distribution width [Ratio] by Automated count11.0-15.0[facility] HospitalEstimated glomerular filtration rate (GFR) non- Americanon 38-17-1689EEY/1.73 sq M.predicted among non-blacks MDRD (S/P/Bld) [Vol rate/Area]Estimated glomerular filtration rate (GFR) non->=60 mL/min/1.73m 2FOhioHealth Riverside Methodist HospitalGlobulin Calc (S) [Mass/Vol]on 59-60-8648Pvidfpmn (S) [Mass/Vol]Serum globulin measurement by calculation (mass/volume)[facility] HospitalHematocrit Auto (Bld) [Volume fraction]on 72-33-3411Xbilkspsav (Bld) [Volume fraction]Hematocrit [Volume Fraction] of Blood by Automated count 36.0-48.0[facility] HospitalHemoglobin [Mass/volume] in Bloodon 53-96-6384Gkskplxufl (Bld) [Mass/Vol]Hemoglobin [Mass/volume] in Blood12.0-16.0 [facility] HospitalLaboratory - Chemistry and Chemistry - challengeon 78-32-4322Tdpiqqe [Mass/Vol]3.9 g/dL3.4-5.0[facility] HospitalALP [Catalytic activity/Vol]75 U/K10-497FrspkszpbBrown Memorial HospitalALT [Catalytic activity/Vol]20 U/M11-16HjwvlmwsyBrown Memorial Hospital AST [Catalytic activity/Vol]20 U/D55-96PufrpruerBrown Memorial Hospital Bilirubin [Mass/Vol]0.6 mg/dL0.2-1.0[facility] HospitalCalcium [Mass/Vol]9.3 mg/dL8.5-10.1FOhioHealth Riverside Methodist HospitalChloride [Moles/Vol] 103 mmol/F18-167VtkwpxcofBrown Memorial HospitalCO2 [Moles/Vol]27.7 mmol/L 21.0-32.0[facility] HospitalCreatinine [Mass/Vol]0.69 mg/dL 0.55-1.02[facility] HospitalGFR/1.73 sq M.predicted MDRD (S/P/Bld) [Vol rate/Area]mL/min/{1.73_m2}>=60 mL/min/1.73m 2FOhioHealth Riverside Methodist HospitalGlucose [Mass/Vol]106 mg/xK65-367DtcfoizonBrown Memorial Hospital Potassium [Moles/Vol]4.2 mmol/L3.5-5.1FOhioHealth Riverside Methodist HospitalProtein [Mass/Vol]7.4 g/dL6.4-8.2FHocking Valley Community Hospitalodium [Moles/Vol]135 mmol/ICdd422-616LzxfitnzoBrown Memorial HospitalUrea nitrogen [Mass/Vol]11.0 mg/dL7.0-18.0[facility] HospitalUrea nitrogen/Creatinine [Mass ratio]15.9 mg/mgBrown Memorial HospitalLaboratory - Hematology and Cell countson 04-44-6763Dmgxnbis granulocytes/100 WBC (Bld)0.2 %0.0-0.5FOhioHealth Riverside Methodist HospitalLeukocytes [#/volume] corrected for nucleated erythrocytes in Blood by Automated counon 67-76-6590DWC corrected for nucl RBC Auto (Bld) [#/Vol]Leukocytes [#/volume] corrected for nucleated erythrocytes in Blood by Automated coun4.0-11.0[facility] HospitalLymphocytes Auto (Bld) [#/Vol]on 84-66-8230Qwhcoqdaunb (Bld) [#/Vol]Lymphocytes [#/volume] in Blood by Automated count1.2-3.8[facility] HospitalLymphocytes/100 WBC Auto (Bld)on 46-00-1124Ghhkplxvvyb/100 WBC (Bld)Lymphocytes/100 leukocytes in Blood by Automated count20.5-60.0[facility] HospitalH Auto (RBC) [Entitic mass]on 24-83-1316OHD (RBC) [Entitic mass]MCH [Entitic mass] by Automated count26.7-34.0[facility] HospitalHC Auto (RBC) [Mass/Vol]on 81-32-1527QSGO (RBC) [Mass/Vol]MCHC [Mass/volume] by Automated count29.9-35.2FOhioHealth Riverside Methodist HospitalMCV Auto (RBC) [Entitic vol]on 76-71-7910LTV (RBC) [Entitic vol]MCV [Entitic volume] by Automated count 81.0-99.0[facility] HospitalMonocytes Auto (Bld) [#/Vol]on 30-50-9796Dssgojyqp (Bld) [#/Vol]Automated blood monocyte count0.3-0.8[facility] HospitalMonocytes/100 WBC Auto (Bld)on 28-56-1835Qgadrzsmu/100 WBC (Bld)Automated monocyte %1.7-12.0[facility] Neutrophils Auto (Bld) [#/Vol]on 12-96-1003Rbcrbgxcigv (Bld) [#/Vol]Neutrophils [#/volume] in Blood by Automated count1.4-6.5FOhioHealth Riverside Methodist Hospital Neutrophils/100 WBC Auto (Bld)on 63-42-0769Jwvytizgfhu/100 WBC (Bld)Automated neutrophil %43.0-75.0[facility] HospitalNo Panel Informationon 12-04-2213Ddddwtwlyzw # (Auto)0.1 10 3/uL0.0-0.7FOhioHealth Riverside Methodist HospitalImmature Granulocyte # (Auto)0.01 10 3/uL0.00-0.03[facility] HospitalPlatelet mean volume Auto (Bld) [Entitic vol]on 88-35-6644Hgufvhir mean volume (Bld) [Entitic vol]Platelet mean volume [Entitic volume] in Blood by Automated count9.5-13.5FOhioHealth Riverside Methodist HospitalPlatelets Auto (Bld) [#/Vol]on 55-15-9157Yqmttuupz (Bld) [#/Vol]Platelets [#/volume] in Blood by Automated ucgnx986-211IcymxuzmzBrown Memorial HospitalRBC Auto (Bld) [#/Vol]on 89-95-7665WGA (Bld) [#/Vol]Erythrocytes [#/volume] in Blood by Automated count 4.20-5.40[facility] Hospitalerum or plasma albumin/globulin mass ratioon 31-79-8792Zmhhafy/Globulin [Mass ratio]Serum or plasma albumin/globulin mass ratioClinton Memorial Hospitalerum or plasma anion gap determinationon 91-67-6667Wnral gap [Moles/Vol]Serum or plasma anion gap determinationBrown Memorial HospitalBasophils Auto (Bld) [#/Vol]on 97-85-1486Wvdlosdqq (Bld) [#/Vol]0.1 10 3/uL0.0-0.1FOhioHealth Riverside Methodist HospitalBasophils/100 WBC Auto (Bld)on 64-72-9782Jymxtrgoq/100 WBC (Bld)1.0 % 0.2-2.0[facility] HospitalEosinophils/100 WBC Auto (Bld)on 79-40-0572Hnzflljxsbv/100 WBC (Bld)1.8 %0.9-7.0[facility] Erythrocyte distribution width Auto (RBC) [Ratio]on 25-74-3739Xkkfyanyvbt distribution width (RBC) [Ratio]13.1 %11.0-15.0[facility] Estimated glomerular filtration rate (GFR) non- Americanon 01-15-2024 GFR/1.73 sq M.predicted among non-blacks MDRD (S/P/Bld) [Vol rate/Area] mL/min/{1.73_m2}>=60[facility] HospitalGlobulin Calc (S) [Mass/Vol]on 99-16-4485Jnyckiuv (S) [Mass/Vol]3.6 g/dLBrown Memorial HospitalHematocrit Auto (Bld) [Volume fraction]on 52-64-3698Spzwjvxvwz (Bld) [Volume fraction]42.6 %36.0-48.0[facility] HospitalHemoglobin [Mass/volume] in Bloodon 33-60-1788Wvcndjsdok (Bld) [Mass/Vol]13.7 g/dL12.0-16.0 [facility] HospitalLaboratory - Chemistry and Chemistry - challengeon 68-19-0436Jnlfdci [Mass/Vol]4.0 g/dL3.4-5.0[facility] HospitalALP [Catalytic activity/Vol]90 U/J36-643AeannvaixBrown Memorial HospitalALT [Catalytic activity/Vol]22 U/E65-75BmnzhnvehBrown Memorial Hospital AST [Catalytic activity/Vol]21 U/W48-01QgfjnmyscBrown Memorial Hospital Bilirubin [Mass/Vol]0.6 mg/dL0.2-1.0[facility] HospitalCalcium [Mass/Vol]9.6 mg/dL8.5-10.1FOhioHealth Riverside Methodist HospitalChloride [Moles/Vol] 102 mmol/A87-309BeevkauziBrown Memorial HospitalCO2 [Moles/Vol]26.2 mmol/L 21.0-32.0[facility] HospitalCreatinine [Mass/Vol]0.60 mg/dL 0.55-1.02[facility] HospitalGFR/1.73 sq M.predicted MDRD (S/P/Bld) [Vol rate/Area]mL/min/{1.73_m2}>=60[facility] HospitalGlucose [Mass/Vol]107 mg/cQLivz53-629QddducwdyBrown Memorial HospitalPotassium [Moles/Vol]4.2 mmol/L3.5-5.1FOhioHealth Riverside Methodist HospitalProtein [Mass/Vol] 7.6 g/dL6.4-8.2FHocking Valley Community Hospitalodium [Moles/Vol]136 mmol/L 136-145[facility] HospitalUrea nitrogen [Mass/Vol]13.0 mg/dL 7.0-18.0[facility] HospitalUrea nitrogen/Creatinine [Mass ratio] 21.7 mg/mgBrown Memorial HospitalLaboratory - Hematology and Cell countson 89-70-4676Hwlkrozl granulocytes/100 WBC (Bld)0.2 %0.0-0.5FOhioHealth Riverside Methodist HospitalLeukocytes [#/volume] corrected for nucleated erythrocytes in Blood by Automated counon 93-37-8666FRM corrected for nucl RBC Auto (Bld) [#/Vol]5.0 10 3/uL4.0-11.0[facility] Lymphocytes Auto (Bld) [#/Vol]on 50-35-8693Guuzxundgar (Bld) [#/Vol]2.0 10 3/uL 1.2-3.8[facility] HospitalLymphocytes/100 WBC Auto (Bld)on 72-71-4383Wuqpfkuyham/100 WBC (Bld)39.4 %20.5-60.0[facility] HospitalH Auto (RBC) [Entitic mass]on 51-63-4834OPH (RBC) [Entitic mass]32.2 pg 26.7-34.0[facility] HospitalMCHC Auto (RBC) [Mass/Vol]on 73-64-0696DJYW (RBC) [Mass/Vol]32.2 g/dL29.9-35.2FOhioHealth Riverside Methodist HospitalMCV Auto (RBC) [Entitic vol]on 21-99-2016DSS (RBC) [Entitic vol]100.0 fL High81.0-99.0[facility] HospitalMonocytes Auto (Bld) [#/Vol]on 44-11-8331Fgiejeigj (Bld) [#/Vol]0.5 10 3/uL0.3-0.8[facility] CenterMonocytes/100 WBC Auto (Bld)on 70-13-7211Dipsaxxsm/100 WBC (Bld)9.1 % 1.7-12.0[facility] HospitalNeutrophils Auto (Bld) [#/Vol]on 03-31-3812Fcnlgdcajlt (Bld) [#/Vol]2.4 10 3/uL1.4-6.5FOhioHealth Riverside Methodist HospitalNeutrophils/100 WBC Auto (Bld)on 99-61-8643Znbiyvzdxqu/100 WBC (Bld)48.5 % 43.0-75.0[facility] HospitalNo Panel Informationon 01-15-2024 Eosinophils # (Auto)0.1 10 3/uL0.0-0.7FOhioHealth Riverside Methodist HospitalImmature Granulocyte # (Auto)0.01 10 3/uL0.00-0.03[facility] Platelet mean volume Auto (Bld) [Entitic vol]on 00-10-3198Yjbedhcm mean volume (Bld) [Entitic vol]10.9 fL9.5-13.5FOhioHealth Riverside Methodist HospitalPlatelets Auto (Bld) [#/Vol]on 33-50-4361Mtlqqqgmk (Bld) [#/Vol]197 10 3/rL187-913 [facility] HospitalRBC Auto (Bld) [#/Vol]on 35-42-8904RKZ (Bld) [#/Vol]4.26 10 6/uL4.20-5.40[facility] Hospitalerum or plasma albumin/globulin mass ratioon 14-58-2317Lshrxan/Globulin [Mass ratio]1.1 {ratio} [facility] Hospitalerum or plasma anion gap determinationon 94-30-2986Egseq gap [Moles/Vol]12.0 mmol/LFOhioHealth Riverside Methodist Hospital Basophils Auto (Bld) [#/Vol]on 59-20-3883Laeoakvdg (Bld) [#/Vol]0.0 10 3/uL 0.0-0.1FOhioHealth Riverside Methodist HospitalBasophils/100 WBC Auto (Bld)on 34-62-3169Tbdbfzuzi/100 WBC (Bld)0.9 %0.2-2.0[facility] Cholesterol in LDL Calc [Mass/Vol]on 39-56-2128Tzybywrnzod in LDL [Mass/Vol] 179.0 mg/dLBrown Memorial HospitalComment on above:<100 mg/dl OHDDTZI244-717 mg/dl NEAR OR ABOVE URQSGED767-368 mg/dl BORDERLINE IDUY231-625 mg/dl HIGH>190 mg/dl VERY HIGHCholesterol in VLDL Calc [Mass/Vol]on 11-26-2023 Cholesterol in VLDL [Mass/Vol]28.0 mg/dLBrown Memorial Hospital Eosinophils/100 WBC Auto (Bld)on 62-05-0238Crtzewmjobk/100 WBC (Bld)2.4 %0.9-7.0 [facility] HospitalErythrocyte distribution width Auto (RBC) [Ratio]on 51-05-8127Ikcbsdpnkly distribution width (RBC) [Ratio]13.2 %11.0-15.0 [facility] HospitalEstimated glomerular filtration rate (GFR) non- Americanon 56-49-5945CVL/1.73 sq M.predicted among non-blacks MDRD (S/P/Bld) [Vol rate/Area]mL/min/{1.73_m2}>=60[facility] Globulin Calc (S) [Mass/Vol]on 70-71-1439Oxsisirg (S) [Mass/Vol]3.5 g/dL [facility] HospitalGlucose mean value [Mass/volume] in Blood Estimated from glycated hemoglobinon 33-05-4795Ldhklvv glucose Estimated from glycated hemoglobin (Bld) [Mass/Vol]94 mg/dLBrown Memorial Hospital Hematocrit Auto (Bld) [Volume fraction]on 38-30-2660Gkukodkeda (Bld) [Volume fraction]41.5 %36.0-48.0[facility] HospitalHemoglobin [Mass/volume] in Bloodon 77-67-3943Sooomqitve (Bld) [Mass/Vol]13.4 g/dL12.0-16.0 [facility] HospitalLaboratory - Chemistry and Chemistry - challengeon 17-37-8186Lexygbv [Mass/Vol]3.9 g/dL3.4-5.0[facility] HospitalALP [Catalytic activity/Vol]101 U/R06-586AcnltkohyBrown Memorial HospitalALT [Catalytic activity/Vol]29 U/E36-22DnjrombnsBrown Memorial HospitalAST [Catalytic activity/Vol]19 U/Z11-33AbausfsseBrown Memorial Hospital Bilirubin [Mass/Vol]0.5 mg/dL0.2-1.0[facility] HospitalCalcium [Mass/Vol]9.5 mg/dL8.5-10.1FOhioHealth Riverside Methodist HospitalChloride [Moles/Vol] 105 mmol/R11-925NauyedapbBrown Memorial HospitalCholesterol [Mass/Vol]250 mg/dL High<=200[facility] HospitalCholesterol in HDL [Mass/Vol]43 mg/dL 40-60[facility] HospitalComment on above:> or =60 mg/dl - LOW CARDIOVASCULAR RISK<40 mg/dl - HIGH CARDIOVASCULAR RISKCO2 [Moles/Vol]28.5 mmol/L21.0-32.0[facility] HospitalCreatinine [Mass/Vol]0.57 mg/dL 0.55-1.02[facility] HospitalGFR/1.73 sq M.predicted MDRD (S/P/Bld) [Vol rate/Area]mL/min/{1.73_m2}>=60[facility] HospitalGlucose [Mass/Vol]100 mg/pU20-929NdrjkpgaiBrown Memorial HospitalPotassium [Moles/Vol] 4.0 mmol/L3.5-5.1FOhioHealth Riverside Methodist HospitalProtein [Mass/Vol]7.4 g/dL 6.4-8.2FHocking Valley Community Hospitalodium [Moles/Vol]142 mmol/N699-542 [facility] HospitalTriglyceride [Mass/Vol]140 mg/dL<=150[facility] HospitalTSH Qn1.818 m[IU]/L0.358-3.740[facility] HospitalUrea nitrogen [Mass/Vol]16.0 mg/dL7.0-18.0[facility] HospitalUrea nitrogen/Creatinine [Mass ratio]28.1 mg/mgBrown Memorial HospitalLaboratory - Hematology and Cell countson 17-48-9102HzW4n (Bld) [Mass fraction]4.9 %4.5-6.2FOhioHealth Riverside Methodist HospitalComment on above:ADA RECOMMENDED LIMIT 4.0 - 6.0ADA THERAPEUTIC TARGET < 7.0ACTION SUGGESTED> 7.0 Immature granulocytes/100 WBC (Bld)0.2 %0.0-0.5FOhioHealth Riverside Methodist Hospital Leukocytes [#/volume] corrected for nucleated erythrocytes in Blood by Automated counon 39-42-2561DBD corrected for nucl RBC Auto (Bld) [#/Vol]4.6 10 3/uL 4.0-11.0[facility] HospitalLymphocytes Auto (Bld) [#/Vol]on 99-03-5608Eiwdbmppajq (Bld) [#/Vol]2.1 10 3/uL1.2-3.8[facility] HospitalLymphocytes/100 WBC Auto (Bld)on 14-66-6130Tvngmfssrgp/100 WBC (Bld)44.7 % 20.5-60.0[facility] HospitalH Auto (RBC) [Entitic mass]on 65-66-9265KPE (RBC) [Entitic mass]31.5 pg26.7-34.0[facility] HospitalMCHC Auto (RBC) [Mass/Vol]on 83-42-7171ULGG (RBC) [Mass/Vol]32.3 g/dL 29.9-35.2FOhioHealth Riverside Methodist HospitalMCV Auto (RBC) [Entitic vol]on 76-26-2100DNP (RBC) [Entitic vol]97.4 fL81.0-99.0[facility] HospitalMonocytes Auto (Bld) [#/Vol]on 93-37-8625Guivbjdnn (Bld) [#/Vol]0.4 10 3/uL0.3-0.8[facility] HospitalMonocytes/100 WBC Auto (Bld)on 46-37-7216Mlkrppcdm/100 WBC (Bld)8.5 %1.7-12.0[facility] Neutrophils Auto (Bld) [#/Vol]on 34-66-6901Xnpbwplxvjx (Bld) [#/Vol]2.0 10 3/uL 1.4-6.5FOhioHealth Riverside Methodist HospitalNeutrophils/100 WBC Auto (Bld)on 80-95-6019Wjmkevgvujy/100 WBC (Bld)43.3 %43.0-75.0[facility] HospitalNo Panel Informationon 49-91-3793Btqjwwyqajy # (Auto)0.1 10 3/uL0.0-0.7 [facility] HospitalImmature Granulocyte # (Auto)0.01 10 3/uL 0.00-0.03[facility] HospitalPlatelet mean volume Auto (Bld) [Entitic vol]on 31-70-8983Pxnvxxfv mean volume (Bld) [Entitic vol]11.4 fL 9.5-13.5FOhioHealth Riverside Methodist HospitalPlatelets Auto (Bld) [#/Vol]on 44-60-2892Amxibfojh (Bld) [#/Vol]210 10 3/xX543-990RcpqzbutbBrown Memorial HospitalRBC Auto (Bld) [#/Vol]on 55-89-6642KUJ (Bld) [#/Vol]4.26 10 6/uL4.20-5.40 [facility] Hospitalerum or plasma albumin/globulin mass ratioon 11-40-3747Zjafqrm/Globulin [Mass ratio]1.1 {ratio}[facility] Hospitalerum or plasma anion gap determinationon 54-65-4637Tlouz gap [Moles/Vol] 12.5 mmol/LFHocking Valley Community Hospitalerum or plasma total cholesterol/high density lipoprotein (HDL) cholesterol mass johan 11-26-2023 Cholesterol.total/Cholesterol in HDL [Mass ratio]5.8 {ratio}[facility] HospitalComment on above:3.3 - 4.4 LOW RISK4.4 - 7.1 AVERAGE RISK7.1 - 11.0 MODERATE RISK>11.0 HIGH RISKBasophils Auto (Bld) [#/Vol]on 09-18-2023 Basophils (Bld) [#/Vol]0.1 10 3/uL0.0-0.1FOhioHealth Riverside Methodist Hospital Basophils/100 WBC Auto (Bld)on 18-79-6694Yvuthoghc/100 WBC (Bld)1.1 %0.2-2.0 [facility] HospitalEosinophils/100 WBC Auto (Bld)on 09-18-2023 Eosinophils/100 WBC (Bld)2.2 %0.9-7.0[facility] Erythrocyte distribution width Auto (RBC) [Ratio]on 93-67-0781Mjobtektzii distribution width (RBC) [Ratio]12.2 %11.0-15.0[facility] Estimated glomerular filtration rate (GFR) non- Americanon 09-18-2023 GFR/1.73 sq M.predicted among non-blacks MDRD (S/P/Bld) [Vol rate/Area] mL/min/{1.73_m2}>=60[facility] HospitalGlobulin Calc (S) [Mass/Vol]on 01-44-0545Auifgyae (S) [Mass/Vol]3.3 g/dLBrown Memorial HospitalHematocrit Auto (Bld) [Volume fraction]on 35-71-6880Yduzapcams (Bld) [Volume fraction]42.5 %36.0-48.0[facility] HospitalHemoglobin [Mass/volume] in Bloodon 34-71-9628Zriuujkomy (Bld) [Mass/Vol]13.5 g/dL12.0-16.0 [facility] HospitalLaboratory - Chemistry and Chemistry - challengeon 11-46-2317Njyftcc [Mass/Vol]3.8 g/dL3.4-5.0[facility] HospitalALP [Catalytic activity/Vol]89 U/I38-981ZiyfuedmhBrown Memorial HospitalALT [Catalytic activity/Vol]26 U/U13-23IqvszavjmBrown Memorial Hospital AST [Catalytic activity/Vol]19 U/E44-33PkswxunucBrown Memorial Hospital Bilirubin [Mass/Vol]0.4 mg/dL0.2-1.0[facility] HospitalCalcium [Mass/Vol]8.9 mg/dL8.5-10.1FOhioHealth Riverside Methodist HospitalChloride [Moles/Vol] 105 mmol/I17-339YjxrjmssaBrown Memorial HospitalCO2 [Moles/Vol]29.0 mmol/L 21.0-32.0[facility] HospitalCreatinine [Mass/Vol]0.71 mg/dL 0.55-1.02[facility] HospitalGFR/1.73 sq M.predicted MDRD (S/P/Bld) [Vol rate/Area]mL/min/{1.73_m2}>=60[facility] HospitalGlucose [Mass/Vol]84 mg/wR04-911RfsvpvactBrown Memorial HospitalPotassium [Moles/Vol] 4.2 mmol/L3.5-5.1FOhioHealth Riverside Methodist HospitalProtein [Mass/Vol]7.1 g/dL 6.4-8.2FHocking Valley Community Hospitalodium [Moles/Vol]142 mmol/W691-565 [facility] HospitalUrea nitrogen [Mass/Vol]13.0 mg/dL7.0-18.0 [facility] HospitalUrea nitrogen/Creatinine [Mass ratio]18.3 mg/mg [facility] HospitalLaboratory - Hematology and Cell countson 43-09-8777Fdmkyxsb granulocytes/100 WBC (Bld)0.2 %0.0-0.5FOhioHealth Riverside Methodist HospitalLeukocytes [#/volume] corrected for nucleated erythrocytes in Blood by Automated counon 39-29-9133PXC corrected for nucl RBC Auto (Bld) [#/Vol]4.6 10 3/uL4.0-11.0[facility] HospitalLymphocytes Auto (Bld) [#/Vol]on 04-04-7341Wtkvutytlqd (Bld) [#/Vol]2.6 10 3/uL1.2-3.8[facility] HospitalLymphocytes/100 WBC Auto (Bld)on 09-18-2023 Lymphocytes/100 WBC (Bld)56.8 %20.5-60.0[facility] HospitalMCH Auto (RBC) [Entitic mass]on 10-53-4799JVN (RBC) [Entitic mass]31.5 pg26.7-34.0 [facility] HospitalMCHC Auto (RBC) [Mass/Vol]on 15-92-8863XVZE (RBC) [Mass/Vol]31.8 g/dL29.9-35.2FOhioHealth Riverside Methodist HospitalMCV Auto (RBC) [Entitic vol]on 64-37-9581PTV (RBC) [Entitic vol]99.1 fL81.0-99.0[facility] HospitalMonocytes Auto (Bld) [#/Vol]on 08-71-9309Xydixwwcv (Bld) [#/Vol]0.4 10 3/uL0.3-0.8[facility] HospitalMonocytes/100 WBC Auto (Bld)on 49-07-3158Qlvxsnsxm/100 WBC (Bld)8.2 %1.7-12.0[facility] HospitalNeutrophils Auto (Bld) [#/Vol]on 25-72-7578Ofjrceffbnt (Bld) [#/Vol]1.5 10 3/uL1.4-6.5FOhioHealth Riverside Methodist HospitalNeutrophils/100 WBC Auto (Bld)on 09-08-3316Exrbrnviycu/100 WBC (Bld)31.5 %43.0-75.0[facility] HospitalNo Panel Informationon 19-90-7678Yrhaloknedn # (Auto)0.1 10 3/uL0.0-0.7FOhioHealth Riverside Methodist HospitalImmature Granulocyte # (Auto)0.01 10 3/uL0.00-0.03[facility] HospitalPlatelet mean volume Auto (Bld) [Entitic vol]on 65-93-9411Cfkngitl mean volume (Bld) [Entitic vol]11.1 fL 9.5-13.5FOhioHealth Riverside Methodist HospitalPlatelets Auto (Bld) [#/Vol]on 99-50-4166Tsfhcdwhu (Bld) [#/Vol]196 10 3/lE429-116SjarohktpBrown Memorial HospitalRBC Auto (Bld) [#/Vol]on 02-33-2131WBA (Bld) [#/Vol]4.29 10 6/uL4.20-5.40 [facility] Hospitalerum or plasma albumin/globulin mass ratioon 61-80-0143Uagqrbn/Globulin [Mass ratio]1.2 {ratio}[facility] Hospitalerum or plasma anion gap determinationon 17-76-9449Sebqa gap [Moles/Vol] 12.2 mmol/LFOhioHealth Riverside Methodist HospitalAlanine aminotransferase [Enzymatic activity/volume] in Serum or PlasmaOrdered By: Isaías Jordan on 03-20-2023 ALT [Catalytic activity/Vol]16 U/L7-52[facility] HospitalALT [Catalytic activity/Vol]Alanine aminotransferase [Enzymatic activity/volume] in Serum or Plasma752[facility] HospitalAlbumin [Mass/volume] in Serum or Plasma by Bromocresol green (BCG) dye binding methoOrdered By: Isaías Jordan on 79-40-8071Lhcplru BCG dye [Mass/Vol]4.4 g/dL3.5-5.7FOhioHealth Riverside Methodist HospitalAlbumin BCG dye [Mass/Vol]Albumin [Mass/volume] in Serum or Plasma by Bromocresol green (BCG) dye binding metho3.5-5.7FOhioHealth Riverside Methodist HospitalAlkaline phosphatase [Enzymatic activity/volume] in Serum or PlasmaOrdered By: Isaías Jordan on 97-78-1968EWW [Catalytic activity/Vol]88 U/I04-030AhteauiobBrown Memorial HospitalALP [Catalytic activity/Vol]Alkaline phosphatase [Enzymatic activity/volume] in Serum or Sjskin76-489AbldoyktgBrown Memorial HospitalAspartate aminotransferase [Enzymatic activity/volume] in Serum or PlasmaOrdered By: Isaías Jordan on 30-99-3321QZZ [Catalytic activity/Vol]21 U/K00-78LqlxzvvqbBrown Memorial HospitalAST [Catalytic activity/Vol]Aspartate aminotransferase [Enzymatic activity/volume] in Serum or Nrlmhi51-82ZukywmhgdBrown Memorial HospitalBasophils Auto (Bld) [#/Vol]Ordered By: Isaías Jordan on 02-50-5995Cwuajclle (Bld) [#/Vol]0.1 10*3/uL0.0-0.2 [facility] HospitalBasophils (Bld) [#/Vol]Automated basophil count 0.0-0.2FOhioHealth Riverside Methodist HospitalBasophils/100 WBC Auto (Bld)Ordered By: Isaías Jordan on 77-45-7782Dpluvjhit/100 WBC (Bld)1.2 %.[facility] HospitalBasophils/100 WBC (Bld)Automated basophil %.[facility] Memorial HospitalBilirubin.total [Mass/volume] in Serum or PlasmaOrdered By: Isaías Jordan on 70-48-6571Cpwkdblbh [Mass/Vol]0.8 mg/dL0.3-1.0[facility] HospitalBilirubin [Mass/Vol]Bilirubin.total [Mass/volume] in Serum or Plasma0.3-1.0[facility] HospitalCalcium [Mass/volume] in Serum or PlasmaOrdered By: Isaías Jordan on 71-43-7691Jggohjs [Mass/Vol]10.3 mg/dL8.6-10.3FOhioHealth Riverside Methodist HospitalCalcium [Mass/Vol]Calcium [Mass/volume] in Serum or Plasma8.6-10.3FOhioHealth Riverside Methodist HospitalCarbon dioxide, total [Moles/volume] in Serum or PlasmaOrdered By: Isaías Jordan on 60-52-4790MY0 [Moles/Vol]27.3 mmol/L21.0-31.0[facility] CO2 [Moles/Vol]Carbon dioxide, total [Moles/volume] in Serum or Vrjdmn68.0-31.0 [facility] HospitalChloride [Moles/volume] in Serum or Plasma Ordered By: Isaías Jordan on 62-90-2470Wnrrpnsg [Moles/Vol]105 mmol/L98-107 [facility] HospitalChloride [Moles/Vol]Chloride [Moles/volume] in Serum or Cfyjpu57-371HgzofreabBrown Memorial HospitalCreatinine [Mass/volume] in Serum or PlasmaOrdered By: Isaías Jordan on 53-73-2148Wggaronosn [Mass/Vol]0.73 mg/dL0.60-1.20[facility] HospitalCreatinine [Mass/Vol]Creatinine [Mass/volume] in Serum or Plasma0.60-1.20[facility] HospitalEosinophils Auto (Bld) [#/Vol]Ordered By: Isaías Jordan on 21-15-4733Ibtlgugtujm (Bld) [#/Vol]0.1 10*3/uL0.0-0.45[facility] HospitalEosinophils (Bld) [#/Vol]Automated eosinophil count0.0-0.45[facility] HospitalEosinophils/100 WBC Auto (Bld)Ordered By: Isaías Jordan on 07-41-4053Onxyxwllcrb/100 WBC (Bld)2.8 %.[facility] HospitalEosinophils/100 WBC (Bld)Automated eosinophil %.[facility] HospitalErythrocyte distribution width Auto (RBC) [Ratio]Ordered By: Isaías Jordan on 16-17-5581Ivrzvtvffin distribution width (RBC) [Ratio]13.7 %11.9-15.3FOhioHealth Riverside Methodist HospitalErythrocyte distribution width (RBC) [Ratio]Erythrocyte distribution width [Ratio] by Automated count11.9-15.3 [facility] HospitalGlobulin Calc (S) [Mass/Vol]Ordered By: Isaías Jordan on 67-65-4608Zucryaue (S) [Mass/Vol]2.9 g/dLBrown Memorial HospitalGlobulin (S) [Mass/Vol]Serum globulin measurement by calculation (mass/volume)[facility] HospitalGlucose [Mass/volume] in Serum or PlasmaOrdered By: Isaías Jordan on 10-96-7973Asoknhw [Mass/Vol]80 mg/dL 70-100Brown [facility] HospitalComment on above:ADA recommended reference rangeRandom Glucose Reference Range is dependent on time and content of last meal. Glucose of more than 200 mg/dL in a nonstressed, ambulatory subject supports the diagnosisof Diabetes Mellitus.Glucose [Mass/Vol]Glucose [Mass/volume] in Serum or Eejfpc05-208QnjtayhhoBrown Memorial HospitalComment on above:ADA recommended reference rangeRandom Glucose Reference Range is dependent on time and content of last meal. Glucose of more than 200 mg/dL in a nonstressed, ambulatory subject supports the diagnosisof Diabetes Mellitus. Hematocrit Auto (Bld) [Volume fraction]Ordered By: Isaías Jordan on 93-34-9434Ocsbnkhmeo (Bld) [Volume fraction]40.8 %34.0-46.4FOhioHealth Riverside Methodist HospitalHematocrit (Bld) [Volume fraction]Hematocrit [Volume Fraction] of Blood by Automated count34.0-46.4FOhioHealth Riverside Methodist HospitalHemoglobin [Mass/volume] in BloodOrdered By: Isaías Jordan on 47-64-3612Plqioufnaf (Bld) [Mass/Vol]13.8 g/dL11.-15.4FOhioHealth Riverside Methodist HospitalHemoglobin (Bld) [Mass/Vol]Hemoglobin [Mass/volume] in Blood11.-15.4FOhioHealth Riverside Methodist HospitalLeukocytes [#/volume] corrected for nucleated erythrocytes in Blood by Automated counOrdered By: Isaías Jordan on 11-30-4854QIJ corrected for nucl RBC Auto (Bld) [#/Vol]5.1 10*3/uL3.8-11.6FOhioHealth Riverside Methodist HospitalWBC corrected for nucl RBC Auto (Bld) [#/Vol]Leukocytes [#/volume] corrected for nucleated erythrocytes in Blood by Automated coun3.8-11.6FOhioHealth Riverside Methodist HospitalLymphocytes Auto (Bld) [#/Vol]Ordered By: Isaías Jordan on 84-18-1621Gpeezrvbacx (Bld) [#/Vol]2.0 10*3/uL1.00-4.8[facility] HospitalLymphocytes (Bld) [#/Vol]Lymphocytes [#/volume] in Blood by Automated count1.00-4.8[facility] HospitalLymphocytes/100 WBC Auto (Bld)Ordered By: Isaías Jordan on 94-95-6430Twaamyqjsre/100 WBC (Bld) 39.4 %.[facility] HospitalLymphocytes/100 WBC (Bld)Lymphocytes/100 leukocytes in Blood by Automated count.[facility] Auto (RBC) [Entitic mass]Ordered By: Isaías Jordan on 39-69-4559FLT (RBC) [Entitic mass]32.3 pg24.7-34.3FLima Memorial Hospital (RBC) [Entitic mass]MCH [Entitic mass] by Automated count24.7-34.3FMadison HealthHC Auto (RBC) [Mass/Vol]Ordered By: Isaías Jordan on 46-26-3275[place] (RBC) [Mass/Vol]33.7 g/dL32.0-35.0[facility] HospitalMCHC (RBC) [Mass/Vol]MCHC [Mass/volume] by Automated count32.0-35.0 [facility] HospitalMCV Auto (RBC) [Entitic vol]Ordered By: Isaías Jordan on 20-29-5400TYB (RBC) [Entitic vol]95.7 rC14-583JlzkhmdaaBrown Memorial HospitalMCV (RBC) [Entitic vol]MCV [Entitic volume] by Automated count 80-100[facility] HospitalMonocytes Auto (Bld) [#/Vol]Ordered By: Isaías Jordan on 50-83-2987Qhubhrxdc (Bld) [#/Vol]0.5 10*3/uL0.0-0.8 [facility] HospitalMonocytes (Bld) [#/Vol]Automated blood monocyte count0.0-0.8[facility] HospitalMonocytes/100 WBC Auto (Bld) Ordered By: Isaías Jordan on 08-18-3257Tqezldiso/100 WBC (Bld)9.0 %. [facility] HospitalMonocytes/100 WBC (Bld)Automated monocyte %. [facility] HospitalNeutrophils Auto (Bld) [#/Vol]Ordered By: Isaías Jordan on 89-55-3362Ppwaaxrzooe (Bld) [#/Vol]2.4 10*3/uL1.8-7.7 [facility] HospitalNeutrophils (Bld) [#/Vol]Neutrophils [#/volume] in Blood by Automated count1.8-7.7FOhioHealth Riverside Methodist Hospital Neutrophils/100 WBC Auto (Bld)Ordered By: Isaías Jordan on 03-20-2023 Neutrophils/100 WBC (Bld)47.6 %.[facility] HospitalNeutrophils/100 WBC (Bld)Automated neutrophil %.[facility] HospitalNo Panel InformationOrdered By: Isaías Jordan on 25-87-2042Bsutbhtxe GFR (CKD-EPI)> 60.0 mL/MinBrown Memorial HospitalPharmacy Creatinine Clearance (Chem 86.44[facility] HospitalNucleated erythrocytes [Presence] in Blood by Automated countOrdered By: Isaías Jordan on 94-39-8829Fewqskvma RBC Auto Ql (Bld)0.1 /100{WBC}0-0.5FOhioHealth Riverside Methodist HospitalNucleated RBC Auto Ql (Bld)Nucleated erythrocytes [Presence] in Blood by Automated count0-0.5 [facility] HospitalPlatelet mean volume Auto (Bld) [Entitic vol] Ordered By: Isaías Jordan on 12-32-3340Zeteaavb mean volume (Bld) [Entitic vol]8.9 fL6.3-10.7FOhioHealth Riverside Methodist HospitalPlatelet mean volume (Bld) [Entitic vol]Platelet mean volume [Entitic volume] in Blood by Automated count 6.3-10.7FOhioHealth Riverside Methodist HospitalPlatelets Auto (Bld) [#/Vol]Ordered By: Isaías Jordan on 11-20-9667Ogvzkuxsn (Bld) [#/Vol]198 10*3/xS234-001 [facility] HospitalPlatelets (Bld) [#/Vol]Platelets [#/volume] in Blood by Automated npoyl125-707ZrchwkkmzBrown Memorial HospitalPotassium [Moles/volume] in Serum or PlasmaOrdered By: Isaías Jordan on 03-20-2023 Potassium [Moles/Vol]4.3 mmol/L3.5-5.1FOhioHealth Riverside Methodist HospitalPotassium [Moles/Vol]Potassium [Moles/volume] in Serum or Plasma3.5-5.1FOhioHealth Riverside Methodist HospitalProtein [Mass/volume] in Serum or PlasmaOrdered By: Isaías Jordan on 69-81-8340Obgdhxb [Mass/Vol]7.3 g/dL6.4-8.9[facility] HospitalProtein [Mass/Vol]Protein [Mass/volume] in Serum or Plasma6.4-8.9 [facility] HospitalRBC Auto (Bld) [#/Vol]Ordered By: Isaías Jordan on 12-59-7728AYH (Bld) [#/Vol]4.26 10*6/uL3.60-5.00[facility] HospitalRBC (Bld) [#/Vol]Erythrocytes [#/volume] in Blood by Automated count3.60-5.00[facility] Hospitalerum or plasma albumin/globulin mass ratioOrdered By: Isaías Jordan on 27-65-3346Bhnejjs/Globulin [Mass ratio]1.5 {ratio}[facility] HospitalAlbumin/Globulin [Mass ratio] Serum or plasma albumin/globulin mass ratioBrown Memorial Hospital Serum or plasma anion gap determinationOrdered By: Isaías Jordan on 47-12-7167Nirji gap [Moles/Vol]11.0 mmol/L6.0-15.0[facility] HospitalAnion gap [Moles/Vol]Serum or plasma anion gap determination6.0-15.0 [facility] Hospitalerum or plasma carcinoembryonic antigen measurement (mass/volume)Ordered By: Isaías Jordan on 03-20-2023 Carcinoembryonic Ag [Mass/Vol]3.3 ng/mLHigh0.0-3.0[facility] HospitalCarcinoembryonic Ag [Mass/Vol]Serum or plasma carcinoembryonic antigen measurement (mass/volume)High0.0-3.0[facility] Hospitalodium [Moles/volume] in Serum or PlasmaOrdered By: Isaías Jordan on 03-20-2023 Sodium [Moles/Vol]139 mmol/D659-910LplbismedClinton Memorial Hospitalodium [Moles/Vol]Sodium [Moles/volume] in Serum or Lvghik612-424TglfvtasjBrown Memorial HospitalUrea nitrogen [Mass/volume] in Serum or PlasmaOrdered By: Isaías Jordan on 79-61-6976Waop nitrogen [Mass/Vol]16 mg/dL7-[facility] HospitalUrea nitrogen [Mass/Vol]Urea nitrogen [Mass/volume] in Serum or Plasma7[facility] HospitalWBC Auto (Bld) [#/Vol]Ordered By: Isaías Jordan on 50-56-6605YIB (Bld) [#/Vol]5.1 10*3/uL3.8-11.6FOhioHealth Riverside Methodist HospitalWBC (Bld) [#/Vol]Leukocytes [#/volume] in Blood by Automated count3.8-11.6FOhioHealth Riverside Methodist HospitalCBC AUTO DIFFon 64-49-8987EKNY #0.0 103/ulNormal0.0-0.1The [facility] LimaComment on above: Performed By: #### CBC #### [facility] [address] [place] [address] Dr. Doreen BetancourtBasophils/100 WBC (Bld)0.6 %Normal0.2-2.0The [facility] Comment on above:Performed By: #### CBC #### [facility] [address] [address] [address] Doreen Everett #0.0 103/ulNormal0.0-0.7The [facility] LimaComment on above: Performed By: #### CBC #### [facility] [address] [place] [address] Dr. Doreen Gregoryosinophils/100 WBC (Bld)0.6 %Critically low0.9-7.0The [facility] Hospital LimaComment on above:Performed By: #### CBC #### [facility] [address] [place] [address] Dr. Doreen Gregoryrythrocyte distribution width (RBC) [Ratio]13.7 %Ubwppd24.0-15.0 The [facility] LimaComment on above:Performed By: #### CBC #### [facility] [address] [place] [address] Dr. Doreen BetancourtHematocrit (Bld) [Volume fraction]41.0 %Xnhahg43.0-48.0The [facility] LimaComment on above:Performed By: #### CBC #### [facility] [address] [place] [address] Dr. Doreen BetancourtHemoglobin (Bld) [Mass/Vol]13.1 g/cMDaurct19.0-16.0The [facility] LimaComment on above:Performed By: #### CBC #### [facility] [address] [place] [address] Dr. Doreen Shepherd #0.00 10e3/ulNormal0.00-0.03The [facility] LimaComment on above:Performed By: #### CBC #### [facility] [address] [address] [address] Doreen Shepherd %0.0 %Normal0.0-0.5The [facility] on above: Performed By: #### CBC #### [facility] [address] [address] [address] Doreen Kaiser #2.0 103/ulNormal1.2-3.8The [facility] LimaComment on above:Performed By: #### CBC #### [facility] [address] [place] [address] Dr. Doreen Camachohocytes/100 WBC (Bld)55.3 %Rtrdnv45.5-60.0The [facility] on above:Performed By: #### CBC #### [facility] [address] [place] [address] Dr. Doreen DixonUAL DIFF REQNONormalThe [facility] LimaComment on above: Performed By: #### CBC #### [facility] [address] [place] [address] Dr. Doreen Stearns (RBC) [Entitic mass]33.2 ezEdgfzr69.7-34.0The [facility] on above:Performed By: #### CBC #### [facility] [address] [place] [address] Dr. Doreen Stearns (RBC) [Mass/Vol]32.0 g/vIOyvmxj10.9-35.2The [facility] on above:Performed By: #### CBC #### [facility] [address] [place] [address] Dr. Doreen Stearns (RBC) [Entitic vol]104.1 fLCritically high81.0-99.0The [facility] on above:Performed By: #### CBC #### [facility] [address] [place] [address] Dr. Doreen Cheema #0.7 103/ulNormal0.3-0.8The [facility] LimaComment on above:Performed By: #### CBC #### [facility] [address] [address] [address] Doreen BetancourtMonocytes/100 WBC (Bld)18.7 %Critically high1.7-12.0The [facility] on above:Performed By: #### CBC #### [facility] [address] [address] [address] Doreen WrenUT #0.9 103/ulCritically low1.4-6.5The [facility] LimaComment on above:Performed By: #### CBC #### [facility] [address] [place] [address] Dr. Doreen Wrenutrophils/100 WBC (Bld)24.8 %Critically low43.0-75.0The [facility] LimaComment on above:Performed By: #### CBC #### [facility] [address] [place] [address] Dr. Doreen BetancourtPlatelet mean volume (Bld) [Entitic vol]10.5 fLNormal9.5-13.5The [facility] LimaComment on above:Performed By: #### CBC #### [facility] [address] [place] [address] Dr. Doreen BetancourtPLT121 103/ulCritically ekr652-138Fjj [facility] LimaComsurgeons [facility] on above:Performed By: #### CBC #### [facility] [address] [place] [address] Dr. Doreen BetancourtRBC3.94 106/ulCritically low4.20-5.40The [facility] on above:Performed By: #### CBC #### [facility] [address] [place] [address] Dr. Doreen BetancourtWBC3.6 103/ulCritically low4.0-11.0The [facility] on above:Performed By: #### CBC #### [facility] [address] [place] [address] Dr. Doreen BetancourtMAGNESIUMon 56-94-1065Lpdfjeeti [Mass/Vol]2.0 mg/dLNormal1.8-2.4 The [facility] HospitalComment on above:Performed By: #### MG, CMP #### [facility] [address] [address] [address] Doreen Silva 14(COMP METB)on 46-70-0378Agdtqkj [Mass/Vol]3.7 g/dLNormal 3.4-5.0The [facility] LimaComment on above:Performed By: #### MG, CMP #### [facility] [address] [place] [address] Dr. Doreen BetancourtAlbumin/Globulin [Mass ratio]1.0 {ratio}NormalThe [facility] Hospital LimaComment on above:Performed By: #### MG, CMP #### [facility] [address] [place] [address] Dr. Doreen Lopez [Catalytic activity/Vol]161 U/LCritically gaoh60-542Shw [facility] LimaComment on above:Performed By: #### MG, CMP #### [facility] [address] [place] [address] Dr. Doreen Friend [Catalytic activity/Vol]49 U/PMrulko39-25Wjj [facility] LimaComment on above:Performed By: #### MG, CMP #### [facility] [address] [place] [address] Dr. Doreen Cifuentes gap [Moles/Vol]9.8 mmol/LNormalThe [facility] LimaComment on above:Performed By: #### MG, CMP #### [facility] [address] [place] [address] [address] [Catalytic activity/Vol]44 U/LCritically vdfz21-96Usa [facility] LimaComment on above:Performed By: #### MG, CMP #### [facility] [address] [place] [address] Dr. Doreen BetancourtBilirubin [Mass/Vol]0.4 mg/dLNormal0.2-1.0The [facility] Comment on above:Performed By: #### MG, CMP #### [facility] [address] [place] [address] Dr. Doreen BetancourtCalcium [Mass/Vol]9.6 mg/dLNormal8.5-10.1The [facility] Comment on above:Performed By: #### MG, CMP #### [facility] [address] [place] [address] Dr. Doreen BetancourtChloride [Moles/Vol]106 mmol/XBbcptg12-335Emx [facility] Comment on above:Performed By: #### MG, CMP #### [facility] [address] [place] [address] Dr. Doreen BetancourtCO2 [Moles/Vol]30.1 mmol/EMqohtt13.0-32.0The [facility] Comment on above:Performed By: #### MG, CMP #### [facility] [address] [place] [address] Dr. Doreen BetancourtCreatinine [Mass/Vol]0.68 mg/dLNormal0.55-1.02The [facility] LimaComment on above:Performed By: #### MG, CMP #### [facility] [address] [place] [address] Dr. Doreen GregoryGFR-AF EGYPTIAN>60Normal>=60The [facility] LimaComment on above:Performed By: #### MG, CMP #### [facility] [address] [place] [address] Dr. Doreen GregoryGFR-NON AF EGYPTIAN>60Normal>=60The [facility] LimaComment on above:Performed By: #### MG, CMP #### [facility] [address] [place] [address] Dr. Doreen BetancourtGlobulin (S) [Mass/Vol]3.7 g/dLNormalThe [facility] LimaComment on above:Performed By: #### MG, CMP #### [facility] [address] [place] [address] Dr. Doreen BetancourtGlucose [Mass/Vol]107 mg/dLCritically dvih62-229Puf [facility] LimaComment on above:Performed By: #### MG, CMP #### [facility] [address] [place] [address] Dr. Doreen BetancourtPotassium [Moles/Vol]4.9 mmol/LNormal3.5-5.1The [facility] Comment on above:Performed By: #### MG, CMP #### [facility] [address] [place] [address] Dr. Doreen BetancourtProtein [Mass/Vol]7.4 g/dLNormal6.4-8.2The [facility] Comment on above:Performed By: #### MG, CMP #### [facility] [address] [place] [address] Dr. Doreen Maderadium [Moles/Vol]141 mmol/DGgrqow901-498UonOhio Valley Surgical Hospital Comment on above:Performed By: #### MG, CMP #### [facility] [address] [place] [address] Dr. Doreen BetancourtUrea nitrogen [Mass/Vol]11.0 mg/dLNormal7.0-18.0The [facility] LimaComment on above:Performed By: #### MG, CMP #### [facility] [address] [place] [address] Dr. Doreen Copeland nitrogen/Creatinine [Mass ratio]16.2 mg/mgNormalThe [facility] LimaComment on above:Performed By: #### MG, CMP #### [facility] [address] [place] [address] Dr. Doreen Keller AUTO DIFFon 06-44-2237HXAR #0.0 103/ulNormal0.0-0.1The [facility] LimaComment on above:Performed By: #### MG, CMP #### [facility] [address] [place] [address] Dr. Doreen BetancourtBasophils/100 WBC (Bld)0.5 %Normal0.2-2.0The [facility] Comment on above:Performed By: #### MG, CMP #### [facility] [address] [place] [address] Dr. Doreen Everett #0.0 103/ulNormal0.0-0.7The [facility] LimaComment on above: Performed By: #### MG, CMP #### [facility] [address] [place] [address] Dr. Doreen Gregoryosinophils/100 WBC (Bld)0.8 %Critically low0.9-7.0The [facility] Centerment on above:Performed By: #### MG, CMP #### [facility] [address] [place] [address] Dr. Doreen Gregoryrythrocyte distribution width (RBC) [Ratio]13.2 %Zypejn96.0-15.0 The [facility] LimaComment on above:Performed By: #### MG, CMP #### [facility] [address] [place] [address] Dr. Doreen BetancourtHematocrit (Bld) [Volume fraction]40.7 %Kuskcb36.0-48.0The [facility] LimaComment on above:Performed By: #### MG, CMP #### [facility] [address] [place] [address] Dr. Doreen BetancourtHemoglobin (Bld) [Mass/Vol]13.5 g/xOZzzhef46.0-16.0The [facility] LimaComment on above:Performed By: #### MG, CMP #### [facility] [address] [place] [address] Dr. Doreen Shepherd #0.00 10e3/ulNormal0.00-0.03The [facility] LimaComment on above:Performed By: #### MG, CMP #### [facility] [address] [place] [address] Dr. Doreen Shepherd %0.0 %Normal0.0-0.5The [facility] LimaComsurgeons [facility] on above: Performed By: #### MG, CMP #### [facility] [address] [place] [address] Dr. Doreen CamachoH #1.9 103/ulNormal1.2-3.8The [facility] Centerment on above:Performed By: #### MG, CMP #### [facility] [address] [place] [address] Dr. Doreen Nunezmphocytes/100 WBC (Bld)51.8 %Nyaxwl57.5-60.0The [facility] HospitalComment on above:Performed By: #### MG, CMP #### [facility] [address] [place] [address] Dr. Doreen Yusuf DIFF REQNONormalThe [facility] LimaComment on above: Performed By: #### MG, CMP #### [facility] [address] [place] [address] Dr. Doreen Stearns (RBC) [Entitic mass]34.3 pgCritically high26.7-34.0The [facility] HospitalComment on above:Performed By: #### MG, CMP #### [facility] [address] [place] [address] Dr. Doreen Stearns (RBC) [Mass/Vol]33.2 g/iCZyfsep01.9-35.2The [facility] LimaComment on above:Performed By: #### MG, CMP #### [facility] [address] [place] [address] Dr. Doreen Alejo (RBC) [Entitic vol]103.3 fLCritically high81.0-99.0The [facility] LimaComment on above:Performed By: #### MG, CMP #### [facility] [address] [place] [address] Dr. Doreen Cheema #0.5 103/ulNormal0.3-0.8The [facility] LimaComment on above:Performed By: #### MG, CMP #### [facility] [address] [place] [address] Dr. Doreen Ruizocytes/100 WBC (Bld)13.9 %Critically high1.7-12.0The [facility] LimaComment on above:Performed By: #### MG, CMP #### [facility] [address] [place] [address] Dr. Doreen Brar #1.2 103/ulCritically low1.4-6.5The [facility] LimaComment on above:Performed By: #### MG, CMP #### [facility] [address] [place] [address] Dr. Doreen BetancourtNeutrophils/100 WBC (Bld)33.0 %Critically low43.0-75.0The [facility] LimaComsurgeons [facility] on above:Performed By: #### MG, CMP #### [facility] [address] [place] [address] Dr. Doreen BetancourtPlatelet mean volume (Bld) [Entitic vol]10.0 fLNormal9.5-13.5The [facility] LimaComment on above:Performed By: #### MG, CMP #### [facility] [address] [place] [address] Dr. Doreen BetancourtPLT129 103/ulCritically vwr626-115Ajf [facility]imaComsur[facility] on above:Performed By: #### MG, CMP #### [facility] [address] [place] [address] Dr. Doreen BetancourtRBC3.94 106/ulCritically low4.20-5.40The [facility] LimaComment on above:Performed By: #### MG, CMP #### [facility] [address] [place] [address] Dr. Doreen BetancourtWBC3.7 103/ulCritically low4.0-11.0The [facility] on above:Performed By: #### MG, CMP #### [facility] [address] [place] [address] Dr. Doreen BetancourtMAGNESIUMon 91-37-4462Kimgoocsz [Mass/Vol]2.0 mg/dLNormal1.8-2.4 The [facility] LimaComment on above:Performed By: #### MG, CMP #### [facility] [facility] [address] [place] [address] Dr. Doreen BestF 14(COMP METB)on [id number] [Mass/Vol]3.7 g/dLNormal 3.4-5.0The [facility]imaComment on above:Performed By: #### MG, CMP #### [facility] [address] [place] [address] Dr. Doreen BetancourtAlbumin/Globulin [Mass ratio]1.0 {ratio}NormalThe [facility] LimaComment on above:Performed By: #### MG, CMP #### [facility] [address] [address] [address] Doreen CarolinaP [Catalytic activity/Vol]133 U/LCritically duvn77-742Hle [facility]imaComment on above:Performed By: #### MG, CMP #### [facility] [address] [address] [address] Doreen Friend [Catalytic activity/Vol]47 U/DBlrgzv63-07Ksd [facility]imaComment on above:Performed By: #### MG, CMP #### [facility] [address] [place] [address] Dr. Doreen Cifuentes gap [Moles/Vol]10.8 mmol/LNormalThe [facility] Comment on above:Performed By: #### MG, CMP #### [facility] [address] [place] [address] Dr. Doreen BetancourtAST [Catalytic activity/Vol]39 U/LCritically bdaf13-77Xex [facility]ima[facility] on above:Performed By: #### MG, CMP #### [facility] [address] [place] [address] Dr. Doreen BetancourtBilirubin [Mass/Vol]0.5 mg/dLNormal0.2-1.0The [facility] Comment on above:Performed By: #### MG, CMP #### [facility] [address] [place] [address] Dr. Doreen BetancourtCalcium [Mass/Vol]9.4 mg/dLNormal8.5-10.1[facility] Comment on above:Performed By: #### MG, CMP #### [facility] [address] [place] [address] Dr. Doreen BetancourtChloride [Moles/Vol]107 mmol/NZgnmwy29-040Qgv [facility] Comment on above:Performed By: #### MG, CMP #### [facility] [address] [place] [address] Dr. Doreen BetnacourtCO2 [Moles/Vol]27.7 mmol/KYppjtw74.0-32.0The [facility] Comment on above:Performed By: #### MG, CMP #### [facility] [address] [place] [address] Dr. Doreen BetancourtCreatinine [Mass/Vol]0.70 mg/dLNormal0.55-1.02The [facility]imaComment on above:Performed By: #### MG, CMP #### [facility] [address] [address] [address] Doreen GregoryGFR-AF EGYPTIAN>60Normal>=60The [facility]imaComment on above:Performed By: #### MG, CMP #### [facility] [address] [place] [address] Dr. Doreen GregoryGFR-NON AF EGYPTIAN>60Normal>=60The [facility]imaComment on above:Performed By: #### MG, CMP #### [facility] [address] [place] [address] Dr. Doreen BetancourtGlobulin (S) [Mass/Vol]3.7 g/dLNormalThe [facility]imaComment on above:Performed By: #### MG, CMP #### [facility] [address] [place] [address] Dr. Doreen BetancourtGlucose [Mass/Vol]99 mg/xPJsxpjc03-406XooOhio Valley Surgical Hospital Comment on above:Performed By: #### MG, CMP #### [facility] [address] [place] [address] Dr. Doreen BetancourtPotassium [Moles/Vol]4.5 mmol/LNormal3.5-5.1The [facility] Comment on above:Performed By: #### MG, CMP #### [facility] [address] [place] [address] Dr. Doreen BetancourtProtein [Mass/Vol]7.4 g/dLNormal6.4-8.2The [facility] Comment on above:Performed By: #### MG, CMP #### [facility] [address] [place] [address] Dr. Doreen Maderadium [Moles/Vol]141 mmol/ACamzxe547-697Zzx [facility] Comment on above:Performed By: #### MG, CMP #### [facility] [address] [place] [address] Dr. Doreen Copeland nitrogen [Mass/Vol]13.0 mg/dLNormal7.0-18.0The [facility]imaComment on above:Performed By: #### MG, CMP #### [facility] [address] [place] [address] Dr. Doreen Copeland nitrogen/Creatinine [Mass ratio]18.6 mg/mgNormalThe [facility]imaComment on above:Performed By: #### MG, CMP #### [facility] [address] [place] [address] Dr. Doreen Keller AUTO DIFFon [id number] #0.1 103/ulNormal0.0-0.1The [facility]imaComment on above:Performed By: #### CBC #### [facility] [address] [place] [address] Dr. Doreen BetancourtBasophils/100 WBC (Bld)1.0 %Normal0.2-2.0[facility] Comment on above:Performed By: #### CBC #### [facility] [address] [place] [address] Dr. Doreen Everett #0.0 103/ulNormal0.0-0.7The [facility]ima[facility] on above: Performed By: #### CBC #### [facility] [address] [place] [address] Dr. Doreen Gregoryosinophils/100 WBC (Bld)0.8 %Critically low0.9-7.0The [facility]imaComment on above:Performed By: #### CBC #### [facility] [address] [place] [address] Dr. Doreen Gregoryrythrocyte distribution width (RBC) [Ratio]13.2 %Spvviy63.0-15.0 The [facility]imaComment on above:Performed By: #### CBC #### [facility] [address] [place] [address] Dr. Doreen BetancourtHematocrit (Bld) [Volume fraction]40.3 %Eozbse44.0-48.0The [facility]imaComment on above:Performed By: #### CBC #### [facility] [address] [place] [address] Dr. oDreen BetancourtHemoglobin (Bld) [Mass/Vol]13.3 g/rZCfrnhv38.0-16.0The [facility] HospitalComment on above:Performed By: #### CBC #### [facility] [address] [place] [address] Dr. Doreen Shepherd #0.02 10e3/ulNormal0.00-0.03The [facility] on above:Performed By: #### CBC #### [facility] [address] [place] [address] Dr. Doreen Shepherd %0.4 %Normal0.0-0.5The [facility]imaComment on above: Performed By: #### CBC #### [facility] [address] [place] [address] Dr. Doreen Kaiser #1.8 103/ulNormal1.2-3.8The [facility] on above:Performed By: #### CBC #### [facility] [address] [place] [address] Dr. Doreen Nunezmphocytes/100 WBC (Bld)36.8 %Gkzlvj89.5-60.0The [facility]imaComment on above:Performed By: #### CBC #### [facility] [address] [place] [address] Dr. Doreen DixonUAL DIFF REQNONormalThe [facility]imaComment on above: Performed By: #### CBC #### [facility] [address] [place] [address] Dr. Doreen Tapia (RBC) [Entitic mass]33.8 iiVybgis38.7-34.0The [facility] HospitalComment on above:Performed By: #### CBC #### [facility] [address] [address] [address] Doreen StearnsHC (RBC) [Mass/Vol]33.0 g/kRAggpbx93.9-35.2The [facility]imaComment on above:Performed By: #### CBC #### [facility] [address] [place] [address] Dr. Doreen StearnsV (RBC) [Entitic vol]102.5 fLCritically high81.0-99.0The [facility]ima[facility] on above:Performed By: #### CBC #### [facility] [address] [place] [address] Dr. Doreen Cheema #0.6 103/ulNormal0.3-0.8The [facility] on above:Performed By: #### CBC #### [facility] [address] [place] [address] Dr. Doreen Ruizocytes/100 WBC (Bld)12.3 %Critically high1.7-12.0The [facility]imaComment on above:Performed By: #### CBC #### [facility] [address] [place] [address] Dr. Doreen Brar #2.4 103/ulNormal1.4-6.5The [facility]Comsur[facility] on above:Performed By: #### CBC #### [facility] [address] [place] [address] Dr. Doreen Wrenutrophils/100 WBC (Bld)48.7 %Fuglgb30.0-75.0The [facility]imaComment on above:Performed By: #### CBC #### [facility] [address] [place] [address] Dr. Doreen Goldsteinlet mean volume (Bld) [Entitic vol]10.3 fLNormal9.5-13.5The [facility]imaComment on above:Performed By: #### CBC #### [facility] [address] [place] [address] Dr. Doreen BetancourtPLT239 103/lqKtpkgr270-645Nxp [facility] Centerment on above: Performed By: #### CBC #### [facility] [address] [place] [address] Dr. Doreen BetancourtRBC3.93 106/ulCritically low4.20-5.40The [facility] on above:Performed By: #### CBC #### [facility] [address] [place] [address] Dr. Doreen BetancourtWBC4.9 103/ulNormal4.0-11.0The [facility] on above: Performed By: #### CBC #### [facility] [address] [place] [address] Dr. Doreen BetancourtMAGNESIUMon [id number] [Mass/Vol]1.9 mg/dLNormal1.8-2.4 The [facility]Comment on above:Performed By: #### MG, CMP #### [facility] [address] [place] [address] Dr. Doreen BetancourtPROF 14(COMP METB)on 27-40-4488Zxqtjul [Mass/Vol]3.5 g/dLNormal 3.4-5.0The [facility] on above:Performed By: #### CMP, MG #### [facility] [address] [place] [address] Dr. Doreen BetancourtAlbumin/Globulin [Mass ratio]0.9 {ratio}NormalThe [facility] on above:Performed By: #### CMP, MG #### [facility] [address] [place] [address] Dr. Doreen Lopez [Catalytic activity/Vol]153 U/LCritically oynl71-455Slm [facility] on above:Performed By: #### CMP, MG #### [facility] [address] [place] [address] Dr. Doreen Friend [Catalytic activity/Vol]36 U/HKuretd03-57Chw [facility] Centerment on above:Performed By: #### CMP, MG #### [facility] [address] [place] [address] Dr. Doreen Cifuentes gap [Moles/Vol]11.7 mmol/LNormalOhio [facility] Comment on above:Performed By: #### CMP, MG #### [facility] [address] [place] [address] Dr. Doreen BetancourtAST [Catalytic activity/Vol]30 U/XHnzamh47-91Cwc [facility] on above:Performed By: #### CMP, MG #### [facility] [address] [place] [address] Dr. Doreen BetancourtBilirubin [Mass/Vol]0.5 mg/dLNormal0.2-1.0The [facility] Comment on above:Performed By: #### CMP, MG #### [facility] [address] [place] [address] Dr. Doreen BetancourtCalcium [Mass/Vol]9.2 mg/dLNormal8.5-10.1[facility] Comment on above:Performed By: #### CMP, MG #### [facility] [address] [place] [address] Dr. Doreen BetancourtChloride [Moles/Vol]105 mmol/OApipkl53-931UaoOhio Valley Surgical Hospital Comment on above:Performed By: #### CMP, MG #### [facility] [address] [place] [address] Dr. Doreen BetancourtCO2 [Moles/Vol]27.3 mmol/QNqiryn39.0-32.0[facility] Comment on above:Performed By: #### CMP, MG #### [facility] [address] [place] [address] Dr. Doreen BetancourtCreatinine [Mass/Vol]0.75 mg/dLNormal0.55-1.02The [facility]imaComment on above:Performed By: #### CMP, MG #### [facility] [address] [place] [address] Dr. Doreen GregoryGFR-AF EGYPTIAN>60Normal>=60The [facility]imaComment on above:Performed By: #### CMP, MG #### [facility] [address] [place] [address] Dr. Doreen GregoryGFR-NON AF EGYPTIAN>60Normal>=60The [facility]ima[facility] on above:Performed By: #### CMP, MG #### [facility] [address] [place] [address] Dr. Doreen BetancourtGlobulin (S) [Mass/Vol]4.0 g/dLNormalThe [facility]imaComment on above:Performed By: #### CMP, MG #### [facility] [address] [place] [address] Dr. Doreen BetancourtGlucose [Mass/Vol]89 mg/kEJgodei81-810Qmn [facility] Comment on above:Performed By: #### CMP, MG #### [facility] [address] [place] [address] Dr. Doreen BetancourtPotassium [Moles/Vol]4.0 mmol/LNormal3.5-5.1The [facility] Comment on above:Performed By: #### CMP, MG #### [facility] [address] [place] [address] Dr. Doreen BetancourtProtein [Mass/Vol]7.5 g/dLNormal6.4-8.2[facility] Comment on above:Performed By: #### CMP, MG #### [facility] [address] [place] [address] Dr. Doreen BetancourtSodium [Moles/Vol]140 mmol/NCjimfr812-945Cer [facility] Comment on above:Performed By: #### CMP, MG #### [facility] [address] [place] [address] Dr. Doreen BetancourtUrea nitrogen [Mass/Vol]18.0 mg/dLNormal7.0-18.0The [facility] on above:Performed By: #### CMP, MG #### [facility] [address] [place] [address] Dr. Doreen BetancourtUrea nitrogen/Creatinine [Mass ratio]24.0 mg/mgNormalThe [facility]imaComment on above:Performed By: #### CMP, MG #### [facility] [address] [place] [address] Dr. Doreen BetancourtMagnesium [Mass/volume] in Serum or PlasmaOrdered By: Isaías Jordan on [id number] [Mass/Vol]2.2 mg/dL1.9-2.7FOhioHealth Riverside Methodist HospitalMagnesium [Mass/Vol]Magnesium [Mass/volume] in Serum or Plasma 1.9-2.7FOhioHealth Riverside Methodist HospitalCBC AUTO DIFFon [id number] #0.0 103/ulNormal0.0-0.1The [facility]imaComment on above:Performed By: #### CBC #### [facility] [address] [place] [address] Dr. Doreen BetancourtBasophils/100 WBC (Bld)0.3 %Normal0.2-2.0The [facility] Comment on above:Performed By: #### CBC #### [facility] [address] [place] [address] Dr. Doreen Everett #0.0 103/ulNormal0.0-0.7The [facility] on above: Performed By: #### CBC #### [facility] [address] [place] [address] Dr. Doreen Gregoryosinophils/100 WBC (Bld)0.9 %Normal0.9-7.0The [facility] Comment on above:Performed By: #### CBC #### [facility] [address] [place] [address] Dr. Doreen Gregoryrythrocyte distribution width (RBC) [Ratio]16.3 %Critically high 11.0-15.0The [facility]imaComment on above:Performed By: #### CBC #### [facility] [address] [place] [address] Dr. Doreen BetancourtHematocrit (Bld) [Volume fraction]37.3 %Bynoxv98.0-48.0The [facility]imaComment on above:Performed By: #### CBC #### [facility] [address] [place] [address] Dr. Yilan ChangHemoglobin (Bld) [Mass/Vol]12.4 g/lMJuhkrq69.0-16.0The [facility] on above:Performed By: #### CBC #### [facility] [address] [place] [address] Dr. Doreen Shepherd #0.01 10e3/ulNormal0.00-0.03The [facility]imaComment on above:Performed By: #### CBC #### [facility] [address] [place] [address] Dr. Doreen Shepherd %0.3 %Normal0.0-0.5The [facility]imaComment on above: Performed By: #### CBC #### [facility] [address] [place] [address] Dr. Doreen Kaiser #1.1 103/ulCritically low1.2-3.8The [facility] Comment on above:Performed By: #### CBC #### [facility] [address] [place] [address] Dr. Doreen Camachohocytes/100 WBC (Bld)30.7 %Wsfudq15.5-60.0The [facility]imaComment on above:Performed By: #### CBC #### [facility] [address] [place] [address] Dr. Doreen DixonUAL DIFF REQNONormalThe [facility]Comment on above: Performed By: #### CBC #### [facility] [address] [place] [address] Dr. Doreen Tapia (RBC) [Entitic mass]34.3 pgCritically high26.7-34.0The [facility]imaComment on above:Performed By: #### CBC #### [facility] [address] [place] [address] Dr. Doreen Stearns (RBC) [Mass/Vol]33.2 g/mSYfzjsk28.9-35.2The [facility] HospitalComment on above:Performed By: #### CBC #### [facility] [address] [place] [address] Dr. Doreen Alejo (RBC) [Entitic vol]103.3 fLCritically high81.0-99.0The [facility]ima[facility] on above:Performed By: #### CBC #### [facility] [address] [place] [address] Dr. Doreen Cheema #0.4 103/ulNormal0.3-0.8The [facility] on above:Performed By: #### CBC #### [facility] [address] [place] [address] Dr. Doreen Ruizocytes/100 WBC (Bld)11.4 %Normal1.7-12.0The [facility] Comment on above:Performed By: #### CBC #### [facility] [address] [place] [address] Dr. Doreen Brar #2.0 103/ulNormal1.4-6.5The [facility]imaComment on above:Performed By: #### CBC #### [facility] [address] [place] [address] Dr. Doreen Wrenutrophils/100 WBC (Bld)56.4 %Uirnnu13.0-75.0The [facility]imaComment on above:Performed By: #### CBC #### [facility] [address] [place] [address] Dr. Doreen Goldsteinlet mean volume (Bld) [Entitic vol]10.0 fLNormal9.5-13.5The [facility]imaComment on above:Performed By: #### CBC #### [facility] [address] [place] [address] Dr. Doreen BeatncourtPLT128 103/ulCritically ftu837-901Udf [facility]ima[facility] on above:Performed By: #### CBC #### [facility] [address] [place] [address] Dr. Doreen BetancourtRBC3.61 106/ulCritically low4.20-5.40The [facility]imaComment on above:Performed By: #### CBC #### [facility] [address] [place] [address] Dr. Doreen BetancourtWBC3.5 103/ulCritically low4.0-11.0The [facility] on above:Performed By: #### CBC #### [facility] [address] [place] [address] Dr. Doreen BetancourtMAGNESIUMon 94-01-1974Rersbwfqg [Mass/Vol]1.9 mg/dLNormal1.8-2.4 The [facility]imaComment on above:Performed By: #### CVDTBH #### [facility] [address] [place] [address] Dr. Doreen BetancourtPROF 14(COMP METB)on 60-23-6473Yrkpyzp [Mass/Vol]3.7 g/dLNormal 3.4-5.0The [facility]ima[facility] on above:Performed By: #### CVDTBH #### [facility] [address] [place] [address] Dr. Doreen BetancourtAlbumin/Globulin [Mass ratio]1.1 {ratio}NormalThe [facility]imaComment on above:Performed By: #### CVDTBH #### [facility] [address] [place] [address] Dr. Doreen Lopez [Catalytic activity/Vol]138 U/LCritically jidj57-912Grv [facility]imaComment on above:Performed By: #### CVDTBH #### [facility] [address] [place] [address] Dr. Doreen Friend [Catalytic activity/Vol]42 U/UEdakic35-12Cnr [facility]imaComment on above:Performed By: #### CVDTBH #### [facility] [address] [place] [address] Dr. Doreen Cifuentes gap [Moles/Vol]11.0 mmol/LNormalThe [facility] on above:Performed By: #### CVDTBH #### [facility] [address] [place] [address] [address] [Catalytic activity/Vol]36 U/QNwweun27-19Jhg [facility] on above:Performed By: #### CVDTBH #### [facility] [address] [address] [address] Doreen BetancourtBilirubin [Mass/Vol]0.5 mg/dLNormal0.2-1.0The [facility] Comment on above:Performed By: #### CVDTBH #### [facility] [address] [address] [address] Doreen BetancourtCalcium [Mass/Vol]9.6 mg/dLNormal8.5-10.1The [facility] Comment on above:Performed By: #### CVDTBH #### [facility] [address] [address] [address] Doreen BetancourtChloride [Moles/Vol]104 mmol/MBmqyvn15-704Mpf [facility] Comment on above:Performed By: #### CVDTBH #### [facility] [address] [address] [address] Doreen BetancourtCO2 [Moles/Vol]29.8 mmol/MPoadjs62.0-32.0[facility] Comment on above:Performed By: #### CVDTBH #### [facility] [address] [address] [address] Doreen BetancourtCreatinine [Mass/Vol]0.62 mg/dLNormal0.55-1.02[facility] HospitalComment on above:Performed By: #### CVDTBH #### [facility] [address] [address] [address] Doreen GregoryGFR-AF EGYPTIAN>60Normal>=60The [facility]imaComment on above:Performed By: #### CVDTBH #### [facility] [address] [address] [address] Doreen GregoryGFR-NON AF EGYPTIAN>60Normal>=60The [facility]imaComment on above:Performed By: #### CVDTBH #### [facility] [address] [address] [address] Doreen BetancourtGlobulin (S) [Mass/Vol]3.4 g/dLNormalThe [facility]imaComment on above:Performed By: #### CVDTBH #### [facility] [address] [address] [address] Doreen BetancourtGlucose [Mass/Vol]115 mg/dLCritically rutd04-755Fif [facility]imaComment on above:Performed By: #### CVDTBH #### [facility] [address] [address] [address] Doreen BetancourtPotassium [Moles/Vol]4.8 mmol/LNormal3.5-5.1The [facility] Comment on above:Performed By: #### CVDTBH #### [facility] [address] [address] [address] Doreen BetancourtProtein [Mass/Vol]7.1 g/dLNormal6.4-8.2[facility] Comment on above:Performed By: #### CVDTBH #### [facility] [address] [address] [address] Doreen BetancourtSodium [Moles/Vol]140 mmol/HDhpvwp977-357Lfu [facility] Comment on above:Performed By: #### CVDTBH #### [facility] [address] [place] [address] Dr. Doreen BetancourtUrea nitrogen [Mass/Vol]14.0 mg/dLNormal7.0-18.0The [facility]imaComment on above:Performed By: #### CVDTBH #### [facility] [address] [address] [address] Doreen Copeland nitrogen/Creatinine [Mass ratio]22.6 mg/mgNormalThe [facility]imaComment on above:Performed By: #### CVDTBH #### [facility] [address] [place] [address] Dr. Doreen Alcaraz B SURFACE ANTIGEN SCREENon [id number] ScreenNegative NormalNegativeThe [facility]imaComment on above:Performed By: #### CVDTBH #### [facility] [address] [place] [address] Dr. Doreen Pinzon B SURFACE ANTIBODY, QUANTon [id number] B Surf AB Quant46.7 mIU/mLNormalImmunity>9.9The [facility] on above: Result Comment: Status of Immunity Anti-HBs Level Inconsistent with Immunity 0.0 - 9.9 Consistent with Immunity >9.9Performed By: #### MG, CMP #### [facility] [address] [place] [address] Dr. Doreen Pinzon C ANTIBODYon [id number] C Virus AbNon-ReactiveNormal Non ReactiveThe [facility]Comsur[facility] on above:Result Comment: HCV antibody alone does not differentiate between previously resolved infection and active infection. Equivocal and Reactive HCV antibody results should be followed up with an HCV RNA test to support the diagnosis of active HCV infection.Performed By: #### CVDTBH #### [facility] [address] [place] [address] Dr. Doreen Shi QUANTon [id number] Plasma Reagin, QuantNon-Reactive NormalNonRea<1:1The [facility] on above:Result Comment: Please Note: This test does not meet current guidelines for screening and diagnosis of syphilis. This test is intended for following treatment response in patients being treated for syphilis infection. To screen for syphilis infection, a reflex cascade that includes both RPR and a treponema-specific assay should be utilized, such as Treponema pallidum (Syphilis) Screening [place] ([id number]) or Rapid Plasma Reagin (RPR) Test With Reflex to Quantitative RPR and Confirmatory Treponema pallidum Antibodies ([id number]).Performed By: #### MG, CMP #### [facility] [address] [place] [address] Dr. Doreen Cherry 1/2 RAPID (EXPOSURE ONLY)on [id number] ABNon-Reactive NormalNON-REACTIVEThe [facility]Com[facility] on above:Performed By: #### MG, CMP #### [facility] [address] [place] [address] Dr. Doreen Cherry ROTka-UppcwmmnJxbbwvLDM-MJTOUNBYQbw [facility]imaComment on above:Performed By: #### MG, CMP #### [facility] [address] [place] [address] Dr. Doreen BetancourtINTERNAL CONTROLSWithin Normal LimitsNormalWithin Normal Limits The [facility]ment on above:Performed By: #### MG, CMP #### [facility] [address] [place] [address] Dr. Doreen Artis HIV INFOSEE [facility] Hospital - AkronComment on above:Result Comment: This test is used for the initial screening of the exposure source. Confirmation ofall reactive results will be obtained through reference lab testing.Performed By: #### MG, CMP #### [facility] [address] [place] [address] Dr. Doreen Keller AUTO DIFFon [id number] #0.0 103/ulNormal0.0-0.1The [facility] on above:Performed By: #### MG, CMP #### [facility] [address] [place] [address] Dr. Doreen BetancourtBasophils/100 WBC (Bld)0.7 %Normal0.2-2.0[facility] Comment on above:Performed By: #### MG, CMP #### [facility] [address] [place] [address] Dr. Doreen Everett #0.0 103/ulNormal0.0-0.7The [facility]ment on above: Performed By: #### MG, CMP #### [facility] [address] [place] [address] Dr. Doreen Gregoryosinophils/100 WBC (Bld)0.7 %Critically low0.9-7.0The [facility] on above:Performed By: #### MG, CMP #### [facility] [address] [place] [address] Dr. Doreen Gregoryrythrocyte distribution width (RBC) [Ratio]18.2 %Critically high 11.0-15.0The [facility] HospitalComment on above:Performed By: #### MG, CMP #### [facility] [address] [place] [address] Dr. Doreen Espinozaatocrit (Bld) [Volume fraction]37.8 %Mwqtbe93.0-48.0The [facility]imaComment on above:Performed By: #### MG, CMP #### [facility] [address] [place] [address] Dr. Doreen BetancourtHemoglobin (Bld) [Mass/Vol]12.3 g/sHDsxysu39.0-16.0The [facility] LimaComment on above:Performed By: #### MG, CMP #### [facility] [address] [place] [address] Dr. Doreen Shepherd #0.01 10e3/ulNormal0.00-0.03The [facility]Com[facility] on above:Performed By: #### MG, CMP #### [facility] [address] [place] [address] Dr. Doreen Shepherd %0.3 %Normal0.0-0.5The [facility] LimaComment on above: Performed By: #### MG, CMP #### [facility] [address] [place] [address] Dr. Doreen Kaiser #1.5 103/ulNormal1.2-3.8The [facility]imaComment on above:Performed By: #### MG, CMP #### [facility] [address] [place] [address] Dr. Doreen Camachohocytes/100 WBC (Bld)49.5 %Gjmreg08.5-60.0The [facility] LimaComment on above:Performed By: #### MG, CMP #### [facility] [address] [place] [address] Dr. Doreen DixonUAL DIFF REQNONormalThe [facility] LimaComment on above: Performed By: #### MG, CMP #### [facility] [address] [place] [address] Dr. Doreen Tapia (RBC) [Entitic mass]33.3 utGuqgqg72.7-34.0The [facility] HospitalComment on above:Performed By: #### MG, CMP #### [facility] [address] [place] [address] Dr. Doreen Stearns (RBC) [Mass/Vol]32.5 g/gTNcvwdy61.9-35.2The [facility] LimaComment on above:Performed By: #### MG, CMP #### [facility] [address] [place] [address] Dr. Doreen Alejo (RBC) [Entitic vol]102.4 fLCritically high81.0-99.0The [facility] LimaComment on above:Performed By: #### MG, CMP #### [facility] [address] [place] [address] Dr. Doreen Cheema #0.5 103/ulNormal0.3-0.8The [facility]imaComment on above:Performed By: #### MG, CMP #### [facility] [address] [place] [address] Dr. Doreen Ruizocytes/100 WBC (Bld)14.7 %Critically high1.7-12.0The [facility]imaComment on above:Performed By: #### MG, CMP #### [facility] [address] [place] [address] Dr. Doreen Brar #1.1 103/ulCritically low1.4-6.5The [facility]imaComment on above:Performed By: #### MG, CMP #### [facility] [address] [place] [address] Dr. Doreen Wrenutrophils/100 WBC (Bld)34.1 %Critically low43.0-75.0The [facility] LimaComment on above:Performed By: #### MG, CMP #### [facility] [address] [place] [address] Dr. Doreen Basilio mean volume (Bld) [Entitic vol]11.1 fLNormal9.5-13.5The [facility] LimaComment on above:Performed By: #### MG, CMP #### [facility] [address] [place] [address] Dr. Doreen BetancourtPLT117 103/ulCritically qwp280-428Zbv [facility]imaComment on above:Performed By: #### MG, CMP #### [facility] [address] [place] [address] Dr. Doreen BetancourtRBC3.69 106/ulCritically low4.20-5.40The [facility]imaComment on above:Performed By: #### MG, CMP #### [facility] [address] [place] [address] Dr. Doreen BetancourtWBC3.1 103/ulCritically low4.0-11.0The [facility] LimaComment on above:Performed By: #### MG, CMP #### [facility] [address] [place] [address] Dr. Doreen BetancourtMAGNESIUMon [id number] [Mass/Vol]2.0 mg/dLNormal1.8-2.4 The [facility] LimaComment on above:Performed By: #### MG, CMP #### [facility] [address] [place] [address] Dr. Doreen Silva 14(COMP METB)on [id number] [Mass/Vol]3.4 g/dLNormal 3.4-5.0The [facility] LimaComment on above:Performed By: #### MG, CMP #### [facility] [address] [place] [address] Dr. Doreen BetancourtAlbumin/Globulin [Mass ratio]1.0 {ratio}NormalThe [facility]imaComsur[facility] on above:Performed By: #### MG, CMP #### [facility] [address] [place] [address] Dr. Doreen Lopez [Catalytic activity/Vol]121 U/LCritically ehgl26-222Nwq [facility]imaComment on above:Performed By: #### MG, CMP #### [facility] [address] [place] [address] Dr. Doreen Friend [Catalytic activity/Vol]52 U/JCktpah16-75Owu [facility]imaComment on above:Performed By: #### MG, CMP #### [facility] [address] [place] [address] Dr. Doreen Sharifon gap [Moles/Vol]11.5 mmol/LNormalOhio [facility] Comment on above:Performed By: #### MG, CMP #### [facility] [address] [place] [address] Dr. Doreen BetancourtAST [Catalytic activity/Vol]34 U/RXnchwb69-46Xhg [facility]imaComment on above:Performed By: #### MG, CMP #### [facility] [address] [place] [address] Dr. Doreen BetancourtBilirubin [Mass/Vol]0.4 mg/dLNormal0.2-1.0[facility] Comment on above:Performed By: #### MG, CMP #### [facility] [address] [place] [address] Dr. Doreen BetancourtCalcium [Mass/Vol]9.5 mg/dLNormal8.5-10.1[facility] Comment on above:Performed By: #### MG, CMP #### [facility] [address] [place] [address] Dr. Doreen BetancourtChloride [Moles/Vol]106 mmol/LHhnjcx56-881JqhOhio Valley Surgical Hospital Comment on above:Performed By: #### MG, CMP #### [facility] [address] [place] [address] Dr. Doreen BetancourtCO2 [Moles/Vol]28.6 mmol/JFmghqp18.0-32.0The [facility] on above:Performed By: #### MG, CMP #### [facility] [address] [place] [address] Dr. Doreen BetancourtCreatinine [Mass/Vol]0.60 mg/dLNormal0.55-1.02The [facility] LimaComment on above:Performed By: #### MG, CMP #### [facility] [address] [place] [address] Dr. Doreen GregoryGFR-AF EGYPTIAN>60Normal>=60The [facility]imaComment on above:Performed By: #### MG, CMP #### [facility] [address] [address] [address] Doreen GregoryGFR-NON AF EGYPTIAN>60Normal>=60The [facility]imaComment on above:Performed By: #### MG, CMP #### [facility] [address] [place] [address] Dr. Doreen BetancourtGlobulin (S) [Mass/Vol]3.5 g/dLNormalThe [facility]imaComment on above:Performed By: #### MG, CMP #### [facility] [address] [place] [address] Dr. Doreen BetancourtGlucose [Mass/Vol]95 mg/kWHpcxeb27-801UjeOhio Valley Surgical Hospital Comment on above:Performed By: #### MG, CMP #### [facility] [address] [place] [address] Dr. Doreen BetancourtPotassium [Moles/Vol]4.1 mmol/LNormal3.5-5.1[facility] Comment on above:Performed By: #### MG, CMP #### [facility] [address] [place] [address] Dr. Doreen BetancourtProtein [Mass/Vol]6.9 g/dLNormal6.4-8.2[facility] Comment on above:Performed By: #### MG, CMP #### [facility] [address] [place] [address] Dr. Doreen BetancourtSodium [Moles/Vol]142 mmol/WCfqhql666-268BdfOhio Valley Surgical Hospital Comment on above:Performed By: #### MG, CMP #### [facility] [address] [place] [address] Dr. Doreen BetancourtUrea nitrogen [Mass/Vol]13.0 mg/dLNormal7.0-18.0The [facility]imaComment on above:Performed By: #### MG, CMP #### [facility] [address] [place] [address] Dr. Doreen Copeland nitrogen/Creatinine [Mass ratio]21.7 mg/mgNormalThOur Lady of Mercy Hospital - AndersonComment on above:Performed By: #### MG, CMP #### [facility] [address] [address] [address] Doreen Keller W MANUAL DIFFon [id number]Kil Bellevue HospitalComment on above:Performed By: #### MG, CMP #### [facility] [address] [address] [address] Doreen Grayson LYMPH #NormalOhio Valley Surgical HospitalComment on above: Performed By: #### MG, CMP #### [facility] [address] [place] [address] Dr. Doreen Grayson LYMPH %NormalOhio Valley Surgical HospitalComment on above: Performed By: #### MG, CMP #### [facility] [address] [place] [address] Dr. Doreen Walls #Normal0.0-0.3The [facility]imaComment on above: Performed By: #### MG, CMP #### [facility] [address] [place] [address] Dr. Doreen Walls %Normal0-5The [facility]imaComment on above:Performed By: #### MG, CMP #### [facility] [address] [place] [address] Dr. Doreen Constantino #0.00 103/ulNormal0.00-0.10The [facility]imaComment on above:Performed By: #### MG, CMP #### [facility] [address] [place] [address] Dr. Doreen Constantino %0.0 %Critically low0.2-2.0The [facility]imaComment on above:Performed By: #### MG, CMP #### [facility] [address] [address] [address] Doreen Skinner #NormalDetwiler Memorial Hospital HospitalComment on above:Performed By: #### MG, CMP #### [facility] [address] [place] [address] Dr. Doreen BetancourtBLAST %NormalOhio Valley Surgical HospitalComment on above:Performed By: #### MG, CMP #### [facility] [address] [place] [address] Dr. Doreen BetancourtCORRECTED WBCNormal4.0-11.0The [facility]imaComment on above: Performed By: #### MG, CMP #### [facility] [address] [place] [address] Dr. Doreen Cazares #0.00 103/ulNormal0.00-0.70The [facility]imaComment on above:Performed By: #### MG, CMP #### [facility] [address] [place] [address] Dr. Doreen Cazares%0.0 %Critically low0.9-7.0The [facility]imaComment on above:Performed By: #### MG, CMP #### [facility] [address] [place] [address] Dr. Doreen BetancourtHCT36.2 %Bnysef45.0-48.0The [facility]imaComment on above: Performed By: #### MG, CMP #### [facility] [address] [place] [address] Dr. Doreen BetancourtHGB12.1 g/zmBzgawx80.0-16.0The [facility]Com[facility] on above: Performed By: #### MG, CMP #### [facility] [address] [place] [address] Dr. Doreen Fontaine #2.08 103/ulNormal1.20-3.80The [facility] LimaComment on above:Performed By: #### MG, CMP #### [facility] [address] [place] [address] Dr. Doreen Fontaine%63.0 %Critically high20.5-60.0The [facility]imaComment on above:Performed By: #### MG, CMP #### [facility] [address] [place] [address] Dr. Doreen BetancourtMCH33.0 ruJjvaff93.7-34.0The [facility] HospitalComment on above: Performed By: #### MG, CMP #### [facility] [address] [place] [address] Dr. Doreen StearnsHC33.4 g/meZhepzb06.9-35.2The [facility] HospitalComment on above:Performed By: #### MG, CMP #### [facility] [address] [place] [address] Dr. Doreen StearnsV98.6 fMHrcpcz70.0-99.0The [facility] HospitalComment on above: Performed By: #### MG, CMP #### [facility] [address] [place] [address] Dr. Doreen Dawkins #NormalThe [facility]imaComment on above: Performed By: #### MG, CMP #### [facility] [address] [place] [address] Dr. Doreen MontalvoOCYTE %NormalThe [facility] HospitalComment on above: Performed By: #### MG, CMP #### [facility] [address] [place] [address] Dr. Doreen Mishra#0.33 103/ulNormal0.30-0.80The [facility]imaComment on above:Performed By: #### MG, CMP #### [facility] [address] [place] [address] Dr. Doreen Mishra%10.0 %Normal1.7-12.0The [facility] HospitalComment on above: Performed By: #### MG, CMP #### [facility] [address] [place] [address] Dr. Doreen KanV10.4 fLNormal9.5-13.5The [facility]imaComment on above: Performed By: #### MG, CMP #### [facility] [address] [place] [address] Dr. Doreen MccainOCYTE #NormalThe [facility] HospitalComment on above:Performed By: #### MG, CMP #### [facility] [address] [place] [address] Dr. Doreen MccainOCYTE %NormalOhio Valley Surgical HospitalComment on above:Performed By: #### MG, CMP #### [facility] [address] [place] [address] Dr. Doreen RubyNokinaCleveland Clinic Medina Hospitale [facility]imaComment on above:Performed By: #### MG, CMP #### [facility] [address] [place] [address] Dr. Doreen DurantT92 103/ulCritically rmn371-070Acd [facility]imaComment on above:Performed By: #### MG, CMP #### [facility] [address] [place] [address] Dr. Doreen TavaresC3.67 106/ulCritically low4.20-5.40The [facility] LimaComment on above:Performed By: #### MG, CMP #### [facility] [address] [place] [address] Dr. Doreen GuadalupeW17.8 %Critically high11.0-15.0The [facility]imaComment on above:Performed By: #### MG, CMP #### [facility] [address] [place] [address] Dr. Doreen Knight #0.89 103/ulCritically low1.40-6.50The [facility] on above:Performed By: #### MG, CMP #### [facility] [address] [place] [address] Dr. Doreen Knight %27.0 %Critically low43.0-75.0[facility] HospitalComment on above:Performed By: #### MG, CMP #### [facility] [address] [place] [address] Dr. Doreen DoughertyBC3.3 103/ulCritically low4.0-11.0The [facility] LimaComment on above:Performed By: #### MG, CMP #### [facility] [address] [place] [address] Dr. Doreen OwensGNESIUMon [id number] [Mass/Vol]2.1 mg/dLNormal1.8-2.4 The [facility]imaComment on above:Performed By: #### CBC #### [facility] [address] [place] [address] Dr. Doreen Sliva 14(COMP METB)on [id number] [Mass/Vol]3.5 g/dLNormal 3.4-5.0The [facility]imaComment on above:Performed By: #### CBC #### [facility] [address] [place] [address] Dr. Doreen BetancourtAlbumin/Globulin [Mass ratio]1.0 {ratio}NormalThe [facility] LimaComment on above:Performed By: #### CBC #### [facility] [address] [place] [address] Dr. Doreen CarolinaP [Catalytic activity/Vol]131 U/LCritically gvsg63-733Taf [facility]imaComment on above:Performed By: #### CBC #### [facility] [address] [place] [address] Dr. Doreen Friend [Catalytic activity/Vol]98 U/LCritically qscs34-90Zir [facility]imaComment on above:Performed By: #### CBC #### [facility] [address] [place] [address] Dr. Doreen Cifuentes gap [Moles/Vol]12.3 mmol/LNormalThe [facility] Comment on above:Performed By: #### CBC #### [facility] [address] [place] [address] Dr. Doreen BetancourtAST [Catalytic activity/Vol]78 U/LCritically unye42-51Kgp [facility]imaComment on above:Performed By: #### CBC #### [facility] [address] [place] [address] Dr. Doreen BetancourtBilirubin [Mass/Vol]0.3 mg/dLNormal0.2-1.0The [facility] Comment on above:Performed By: #### CBC #### [facility] [address] [place] [address] Dr. Yilan ChangCalcium [Mass/Vol]9.3 mg/dLNormal8.5-10.1The [facility] Comment on above:Performed By: #### CBC #### [facility] [address] [address] [address] Doreen BetancourtChloride [Moles/Vol]104 mmol/FMpjzhh02-260Huf [facility] Comment on above:Performed By: #### CBC #### [facility] [address] [address] [address] Doreen BetancourtCO2 [Moles/Vol]29.4 mmol/VXhtlts02.0-32.0The [facility] Comment on above:Performed By: #### CBC #### [facility] [address] [place] [address] Dr. Doreen BetancourtCreatinine [Mass/Vol]0.67 mg/dLNormal0.55-1.02The [facility] LimaComment on above:Performed By: #### CBC #### [facility] [address] [place] [address] Dr. Doreen GregoryGFR-AF EGYPTIAN>60Normal>=60The [facility] LimaComment on above:Performed By: #### CBC #### [facility] [address] [place] [address] Dr. Doreen GregoryGFR-NON AF EGYPTIAN>60Normal>=60The [facility] LimaComment on above:Performed By: #### CBC #### [facility] [address] [place] [address] Dr. Doreen BetancourtGlobulin (S) [Mass/Vol]3.5 g/dLNormalThe [facility] LimaComment on above:Performed By: #### CBC #### [facility] [address] [place] [address] Dr. Doreen BetancourtGlucose [Mass/Vol]100 mg/kKOqnnvr09-140Hwm [facility] Comment on above:Performed By: #### CBC #### [facility] [address] [place] [address] Dr. Doreen BetancourtPotassium [Moles/Vol]4.7 mmol/LNormal3.5-5.1[facility] Comment on above:Performed By: #### CBC #### [facility] [address] [place] [address] Dr. Doreen BetancourtProtein [Mass/Vol]7.0 g/dLNormal6.4-8.2[facility] Comment on above:Performed By: #### CBC #### [facility] [address] [place] [address] Dr. Doreen Parkum [Moles/Vol]141 mmol/BZxwfwm337-295ZxaOhio Valley Surgical Hospital Comment on above:Performed By: #### CBC #### [facility] [address] [place] [address] Dr. Doreen Copeland nitrogen [Mass/Vol]13.0 mg/dLNormal7.0-18.0[facility] HospitalComment on above:Performed By: #### CBC #### [facility] [address] [place] [address] Dr. Doreen Copeland nitrogen/Creatinine [Mass ratio]19.4 mg/mgNormalThOur Lady of Mercy Hospital - AndersonComment on above:Performed By: #### CBC #### [facility] [address] [place] [address] Dr. Doreen Keller AUTO DIFFon [id number] #0.0 103/ulNormal0.0-0.1[facility] HospitalComment on above:Performed By: #### MG, CMP #### [facility] [address] [place] [address] Dr. Doreen BetancourtBajustinephils/100 WBC (Bld)0.6 %Normal0.2-2.0[facility] Comment on above:Performed By: #### MG, CMP #### [facility] [address] [place] [address] Dr. Doreen Everett #0.0 103/ulNormal0.0-0.7The [facility] LimaComment on above: Performed By: #### MG, CMP #### [facility] [address] [place] [address] Dr. Doreen Gregoryosinophils/100 WBC (Bld)0.6 %Critically low0.9-7.0The [facility] LimaComment on above:Performed By: #### MG, CMP #### [facility] [address] [place] [address] Dr. Doreen Gregoryrythrocyte distribution width (RBC) [Ratio]17.8 %Critically high 11.0-15.0The [facility] LimaComment on above:Performed By: #### MG, CMP #### [facility] [address] [place] [address] Dr. Doreen BetancourtHematocrit (Bld) [Volume fraction]36.1 %Cfqovp45.0-48.0The [facility] LimaComment on above:Performed By: #### MG, CMP #### [facility] [address] [place] [address] Dr. Doreen BetancourtHemoglobin (Bld) [Mass/Vol]12.6 g/qINpxtve79.0-16.0The [facility] LimaComment on above:Performed By: #### MG, CMP #### [facility] [address] [place] [address] Dr. Doreen Shepherd #0.01 10e3/ulNormal0.00-0.03The [facility]Comsur[facility] on above:Performed By: #### MG, CMP #### [facility] [address] [place] [address] Dr. Doreen Shepherd %0.3 %Normal0.0-0.5The [facility] on above: Performed By: #### MG, CMP #### [facility] [address] [place] [address] Dr. Doreen NunezMPH #1.6 103/ulNormal1.2-3.8The [facility] LimaComment on above:Performed By: #### MG, CMP #### [facility] [address] [place] [address] Dr. Doreen Nunezmphocytes/100 WBC (Bld)46.4 %Nkcnfm68.5-60.0The [facility] HospitalComment on above:Performed By: #### MG, CMP #### [facility] [address] [place] [address] Dr. Doreen Yusuf DIFF REQNONormalThe [facility] LimaComment on above: Performed By: #### MG, CMP #### [facility] [address] [place] [address] Dr. Doreen Stearns (RBC) [Entitic mass]32.1 qzJldece05.7-34.0The [facility] LimaComment on above:Performed By: #### MG, CMP #### [facility] [address] [place] [address] Dr. Doreen Stearns (RBC) [Mass/Vol]34.9 g/uRWctotf44.9-35.2The [facility] LimaComment on above:Performed By: #### MG, CMP #### [facility] [address] [place] [address] Dr. Doreen Stearns (RBC) [Entitic vol]91.9 wSVjclme86.0-99.0The [facility] Centerment on above:Performed By: #### MG, CMP #### [facility] [address] [place] [address] Dr. Doreen Cheema #0.3 103/ulNormal0.3-0.8The [facility] Centerment on above:Performed By: #### MG, CMP #### [facility] [address] [place] [address] Dr. Doreen Ruizocytes/100 WBC (Bld)9.7 %Normal1.7-12.0The [facility] Comment on above:Performed By: #### MG, CMP #### [facility] [address] [place] [address] Dr. Doreen Brar #1.5 103/ulNormal1.4-6.5The [facility] Centerment on above:Performed By: #### MG, CMP #### [facility] [address] [place] [address] Dr. Doreen Wrenutrophils/100 WBC (Bld)42.4 %Critically low43.0-75.0The [facility] LimaComment on above:Performed By: #### MG, CMP #### [facility] [address] [place] [address] Dr. Doreen Basilio mean volume (Bld) [Entitic vol]11.1 fLNormal9.5-13.5The [facility] LimaComment on above:Performed By: #### MG, CMP #### [facility] [address] [place] [address] Dr. Doreen BetancourtPLT101 103/ulCritically oce579-867Vvc [facility]imaComment on above:Performed By: #### MG, CMP #### [facility] [address] [place] [address] Dr. Doreen BetancourtRBC3.93 106/ulCritically low4.20-5.40The [facility] LimaComment on above:Performed By: #### MG, CMP #### [facility] [address] [place] [address] Dr. Doreen BetancourtWBC3.5 103/ulCritically low4.0-11.0The [facility] LimaComment on above:Performed By: #### MG, CMP #### [facility] [address] [place] [address] Dr. Doreen BetancourtMAGNESIUMon 19-75-6350Omnnilqtf [Mass/Vol]2.0 mg/dLNormal1.8-2.4 The [facility] LimaComment on above:Performed By: #### CMP, MG #### [facility] [address] [place] [address] Dr. Doreen BetancourtPROF 14(COMP METB)on 69-27-6601Fvzmhva [Mass/Vol]3.6 g/dLNormal 3.4-5.0The [facility] LimaComment on above:Performed By: #### CMP, MG #### [facility] [address] [place] [address] Dr. Doreen BetancourtAlbumin/Globulin [Mass ratio]1.0 {ratio}NormalThe [facility] LimaComment on above:Performed By: #### CMP, MG #### [facility] [address] [address] [address] Doreen Lopez [Catalytic activity/Vol]120 U/LCritically ghwf59-091Ito [facility]imaComment on above:Performed By: #### CMP, MG #### [facility] [address] [address] [address] Doreen CarolinaT [Catalytic activity/Vol]80 U/LCritically vois70-84Bda [facility]imaComment on above:Performed By: #### CMP, MG #### [facility] [address] [address] [address] Doreen Sharifon gap [Moles/Vol]10.7 mmol/LNormalThe [facility] Comment on above:Performed By: #### CMP, MG #### [facility] [address] [address] [address] Doreen BetancourtAST [Catalytic activity/Vol]62 U/LCritically lmln54-23Aeg [facility]imaComment on above:Performed By: #### CMP, MG #### [facility] [address] [address] [address] Doreen BetancourtBilirubin [Mass/Vol]0.4 mg/dLNormal0.2-1.0The [facility] Comment on above:Performed By: #### CMP, MG #### [facility] [address] [address] [address] Doreen BetancourtCalcium [Mass/Vol]9.6 mg/dLNormal8.5-10.1The [facility] Comment on above:Performed By: #### CMP, MG #### [facility] [address] [address] [address] Doreen BetancourtChloride [Moles/Vol]106 mmol/HOguoir79-275Ttd [facility] Comment on above:Performed By: #### CMP, MG #### [facility] [address] [address] [address] Doreen BetancourtCO2 [Moles/Vol]29.5 mmol/JYuclyl77.0-32.0The [facility] Comment on above:Performed By: #### CMP, MG #### [facility] [address] [address] [address] Doreen BetancourtCreatinine [Mass/Vol]0.67 mg/dLNormal0.55-1.02The [facility]imaComment on above:Performed By: #### CMP, MG #### [facility] [address] [address] [address] Doreen GregoryGFR-AF EGYPTIAN>60Normal>=60The [facility]imaComment on above:Performed By: #### CMP, MG #### [facility] [address] [address] [address] Doreen GregoryGFR-NON AF EGYPTIAN>60Normal>=60The [facility]imaComment on above:Performed By: #### CMP, MG #### [facility] [address] [address] [address] Doreen BetancourtGlobulin (S) [Mass/Vol]3.5 g/dLNormalThe [facility] LimaComment on above:Performed By: #### CMP, MG #### [facility] [address] [address] [address] Doreen BetancourtGlucose [Mass/Vol]128 mg/dLCritically fsox27-058Xrh [facility]imaComment on above:Performed By: #### CMP, MG #### [facility] [address] [address] [address] Doreen BetancourtPotassium [Moles/Vol]4.2 mmol/LNormal3.5-5.1The [facility] Comment on above:Performed By: #### CMP, MG #### [facility] [address] [address] [address] Doreen BetancourtProtein [Mass/Vol]7.1 g/dLNormal6.4-8.2The [facility] Comment on above:Performed By: #### CMP, MG #### [facility] [address] [address] [address] Doreen BetancourtSodium [Moles/Vol]142 mmol/XRnuhmh439-711Lqt [facility] Comment on above:Performed By: #### CMP, MG #### [facility] [address] [place] [address] Dr. Doreen Copeland nitrogen [Mass/Vol]12.0 mg/dLNormal7.0-18.0The [facility]imaComment on above:Performed By: #### CMP, MG #### [facility] [address] [place] [address] Dr. Doreen Copeland nitrogen/Creatinine [Mass ratio]17.9 mg/mgNormalThe [facility] LimaComment on above:Performed By: #### CMP, MG #### [facility] [address] [place] [address] Dr. Doreen Cobian 60-47-7529HDB1.1 ng/mLCritically high0.0-4.7ThOur Lady of Mercy Hospital - AndersonComment on above:Result Comment: Nonsmokers <3.9 Smokers <5.6 . [employer] Electrochemiluminescence Immunoassay (ECLIA) . Values obtained with different assay methods or kits cannot be used interchangeably. Results cannot be interpreted as absolute evidence of the presence or absence of malignant disease.Performed By: #### CVDTBH #### [facility] [address] [place] [address] Dr. Doreen Keller AUTO DIFFon 29-92-5289MFVX #0.0 103/ulNormal0.0-0.1[facility] HospitalComment on above:Performed By: #### CVDTBH #### [facility] [address] [place] [address] Dr. Doreen BetnacourtBasophils/100 WBC (Bld)0.9 %Normal0.2-2.0[facility] Comment on above:Performed By: #### CVDTBH #### [facility] [address] [place] [address] Dr. Doreen Everett #0.0 103/ulNormal0.0-0.7ThOur Lady of Mercy Hospital - AndersonComment on above: Performed By: #### CVDTBH #### [facility] [address] [place] [address] Dr. Doreen Gregoryosinophils/100 WBC (Bld)0.6 %Critically low0.9-7.0The [facility] LimaComment on above:Performed By: #### CVDTBH #### [facility] [address] [place] [address] Dr. Doreen Gregoryrythrocyte distribution width (RBC) [Ratio]17.2 %Critically high 11.0-15.0The [facility] LimaComment on above:Performed By: #### CVDTBH #### [facility] [address] [place] [address] Dr. Doreen BetancourtHematocrit (Bld) [Volume fraction]39.1 %Knkqku05.0-48.0The [facility] LimaComment on above:Performed By: #### CVDTBH #### [facility] [address] [place] [address] Dr. Doreen BetancourtHemoglobin (Bld) [Mass/Vol]13.0 g/sSWrmrit74.0-16.0The [facility] LimaComment on above:Performed By: #### CVDTBH #### [facility] [address] [place] [address] Dr. Doreen Shepherd #0.00 10e3/ulNormal0.00-0.03The [facility]Comsur[facility] on above:Performed By: #### CVDTBH #### [facility] [address] [place] [address] Dr. Doreen Shepherd %0.0 %Normal0.0-0.5The [facility] LimaComment on above: Performed By: #### CVDTBH #### [facility] [address] [place] [address] Dr. Doreen NunezMPH #2.0 103/ulNormal1.2-3.8The [facility] LimaComment on above:Performed By: #### CVDTBH #### [facility] [address] [place] [address] Dr. Doreen Nunezmphocytes/100 WBC (Bld)42.1 %Nguoim72.5-60.0The [facility] LimaComment on above:Performed By: #### CVDTBH #### [facility] [address] [place] [address] Dr. Doreen Yusuf DIFF REQNONormalThe [facility]imaComment on above: Performed By: #### CVDTBH #### [facility] [address] [place] [address] Dr. Doreen Stearns (RBC) [Entitic mass]31.1 tcIohqwz54.7-34.0The [facility] HospitalComment on above:Performed By: #### CVDTBH #### [facility] [address] [place] [address] Dr. Doreen Stearns (RBC) [Mass/Vol]33.2 g/bVVgmkul36.9-35.2The [facility]imaComment on above:Performed By: #### CVDTBH #### [facility] [address] [place] [address] Dr. Doreen Stearns (RBC) [Entitic vol]93.5 nWIvxwhp21.0-99.0The [facility]imaComment on above:Performed By: #### CVDTBH #### [facility] [address] [place] [address] Dr. Doreen Cheema #0.6 103/ulNormal0.3-0.8The [facility]Com[facility] on above:Performed By: #### CVDTBH #### [facility] [address] [place] [address] Dr. Doreen Ruizocytes/100 WBC (Bld)13.5 %Critically high1.7-12.0The [facility] LimaComment on above:Performed By: #### CVDTBH #### [facility] [address] [place] [address] Dr. Doreen Brar #2.0 103/ulNormal1.4-6.5The [facility]imaComment on above:Performed By: #### CVDTBH #### [facility] [address] [place] [address] Dr. Yilan ChangNeutrophils/100 WBC (Bld)42.9 %Critically low43.0-75.0The [facility] LimaComment on above:Performed By: #### CVDTBH #### [facility] [address] [place] [address] Dr. Doreen Basilio mean volume (Bld) [Entitic vol]10.2 fLNormal9.5-13.5The [facility] LimaComment on above:Performed By: #### CVDTBH #### [facility] [address] [place] [address] Dr. Doreen BetancourtPLT143 103/ulCritically dyd340-557Eco [facility]imaComment on above:Performed By: #### CVDTBH #### [facility] [address] [place] [address] Dr. Doreen BetancourtRBC4.18 106/ulCritically low4.20-5.40The [facility]imaComment on above:Performed By: #### CVDTBH #### [facility] [address] [place] [address] Dr. Doreen BetancourtWBC4.7 103/ulNormal4.0-11.0The [facility]imaComment on above: Performed By: #### CVDTBH #### [facility] [address] [place] [address] Dr. Doreen BetancourtMAGNESIUMon 39-12-1743Cxmlslyuc [Mass/Vol]2.2 mg/dLNormal1.8-2.4 The [facility]imaComment on above:Performed By: #### MG, CMP #### [facility] [address] [place] [address] Dr. Doreen BetancourtPROF 14(COMP METB)on 25-68-5045Kysxnvc [Mass/Vol]3.8 g/dLNormal 3.4-5.0The [facility]imaComment on above:Performed By: #### CBC #### [facility] [address] [place] [address] Dr. Doreen BetancourtAlbumin/Globulin [Mass ratio]1.0 {ratio}NormalThe [facility] LimaComment on above:Performed By: #### CBC #### [facility] [address] [address] [address] Doreen Lopez [Catalytic activity/Vol]118 U/LCritically aoiq14-542Lxu [facility]imaComment on above:Performed By: #### CBC #### [facility] [address] [address] [address] Doreen CarolinaT [Catalytic activity/Vol]57 U/OWppomu27-89Vje [facility]imaComment on above:Performed By: #### CBC #### [facility] [address] [address] [address] Doreen Cifuentes gap [Moles/Vol]13.4 mmol/LNormalThe [facility] Comment on above:Performed By: #### CBC #### [facility] [address] [address] [address] Doreen BetancourtAST [Catalytic activity/Vol]40 U/LCritically cewo39-99Ctd [facility]imaComment on above:Performed By: #### CBC #### [facility] [address] [address] [address] Doreen BetancourtBilirubin [Mass/Vol]0.4 mg/dLNormal0.2-1.0The [facility] Comment on above:Performed By: #### CBC #### [facility] [address] [address] [address] Doreen BetancourtCalcium [Mass/Vol]9.7 mg/dLNormal8.5-10.1[facility] Comment on above:Performed By: #### CBC #### [facility] [address] [address] [address] Doreen BetancourtChloride [Moles/Vol]103 mmol/NQnfguu71-767Zds [facility] Comment on above:Performed By: #### CBC #### [facility] [address] [address] [address] Doreen BetancourtCO2 [Moles/Vol]29.1 mmol/JNsjvux07.0-32.0The [facility] Comment on above:Performed By: #### CBC #### [facility] [address] [address] [address] Doreen BetancourtCreatinine [Mass/Vol]0.71 mg/dLNormal0.55-1.02The [facility] LimaComment on above:Performed By: #### CBC #### [facility] [address] [address] [address] Doreen GregoryGFR-AF EGYPTIAN>60Normal>=60The [facility]imaComment on above:Performed By: #### CBC #### [facility] [address] [address] [address] Doreen GregoryGFR-NON AF EGYPTIAN>60Normal>=60The [facility]imaComment on above:Performed By: #### CBC #### [facility] [address] [place] [address] Dr. Doreen BetancourtGlobulin (S) [Mass/Vol]3.7 g/dLNormalThe [facility] LimaComment on above:Performed By: #### CBC #### [facility] [address] [place] [address] Dr. Doreen BetancourtGlucose [Mass/Vol]106 mg/iKPotkql08-077KkeOhio Valley Surgical Hospital Comment on above:Performed By: #### CBC #### [facility] [address] [place] [address] Dr. Doreen BetancourtPotassium [Moles/Vol]4.5 mmol/LNormal3.5-5.1The [facility] Comment on above:Performed By: #### CBC #### [facility] [address] [place] [address] Dr. Doreen BetancourtProtein [Mass/Vol]7.5 g/dLNormal6.4-8.2The [facility] Comment on above:Performed By: #### CBC #### [facility] [address] [place] [address] Dr. Doreen BetancourtSodium [Moles/Vol]141 mmol/YGaoxpx140-790Yjj [facility] Comment on above:Performed By: #### CBC #### [facility] [address] [place] [address] Dr. Doreen BetancourtUrea nitrogen [Mass/Vol]15.0 mg/dLNormal7.0-18.0[facility] HospitalComment on above:Performed By: #### CBC #### [facility] [address] [address] [address] Doreen BetancourtUrea nitrogen/Creatinine [Mass ratio]21.1 mg/mgNormalThe [facility] LimaComment on above:Performed By: #### CBC #### [facility] [address] [address] [address] Doreen BetancourtAlbumin [Mass/volume] in Serum or PlasmaOrdered By: Isaías Jordan on 36-83-9123Jjfjzgj [Mass/Vol]3.8 g/dL3.2-5.5FOhioHealth Riverside Methodist HospitalCreatinine and Glomerular filtration rate.predicted panel (S/P/Bld)Ordered By: Isaías Jordan on 56-35-6700Ijjbylosxq [Mass/Vol]0.64 mg/dL0.44-1.03[facility] HospitalEstimated glomerular filtration rate (GFR) non- AmericanOrdered By: Isaías Jordan on 07-11-2022 GFR/1.73 sq M.predicted among non-blacks MDRD (S/P/Bld) [Vol rate/Area]> 60 mL/MinBrown Memorial HospitalGFR/1.73 sq M.predicted among non-blacks MDRD (S/P/Bld) [Vol rate/Area]Estimated glomerular filtration rate (GFR) non- AmericanBrown Memorial HospitalGlobulin Calc (S) [Mass/Vol] Ordered By: Isaías Jordan on 31-18-5586Vsulhiwn (S) [Mass/Vol]2.8 g/dL [facility] HospitalLaboratory - Chemistry and Chemistry - challengeOrdered By: Isaías Jordan on 27-61-0634Xjlkijlwq [Mass/Vol]2.2 mg/dL1.6-2.6FOhioHealth Riverside Methodist HospitalNo Panel InformationOrdered By: Isaías Jordan on 09-80-8990Hhckuhwww GFR ()> 60 mL/Min [facility] HospitalComment on above:GFR estimated reference range: According to KDOQI guidelines, <60 ml/min/1.73m2 is sufficient todiagnose a patient with chronic kidney disease.Pharmacy Creatinine Clearance (Chem97.34 [facility] HospitalProtein [Mass/volume] in Serum or PlasmaOrdered By: Isaías Jordan on 43-84-3571Cwnvpnv [Mass/Vol]6.6 g/dL6.1-7.9[facility] Hospitalerum or plasma alanine aminotransferase measurement without P-5'-P (enzymatic activiOrdered By: Isaías Jordan on 45-31-5277WCR No additional P-5'-P [Catalytic activity/Vol]71 U/K43-73LmyptpzjxClinton Memorial Hospitalerum or plasma albumin/globulin mass ratioOrdered By: Isaías Jordan on 16-89-4356Cnbftoq/Globulin [Mass ratio]1.4 {ratio}[facility] Hospitalerum or plasma alkaline phosphatase measurement (enzymatic activity/volume)Ordered By: Isaías Jordan on 18-04-7125HTO [Catalytic activity/Vol]72 U/M84-18XktqbtlqgClinton Memorial Hospitalerum or plasma anion gap determinationOrdered By: Isaías Jordan on 19-53-1296Nrvvv gap [Moles/Vol]9.7 mmol/L6.0-15.0[facility] Hospitalerum or plasma aspartate aminotransferase measurement (enzymatic activity/volume)Ordered By: Isaías Jordan on 94-53-2524WHP [Catalytic activity/Vol]56 U/L10-42 [facility] Hospitalerum or plasma calcium measurement (mass/volume)Ordered By: Isaías Jordan on 49-17-3218Gloxahu [Mass/Vol]9.1 mg/dL8.2-10.2FHocking Valley Community Hospitalerum or plasma chloride measurement (moles/volume)Ordered By: Isaías Jordan on 27-59-7647Vobinbbz [Moles/Vol]103 mmol/S83-299StregjqecClinton Memorial Hospitalerum or plasma glucose measurement (mass/volume)Ordered By: Isaías Jordan on 07-11-2022 Glucose [Mass/Vol]81 mg/fR52-311OllpufatsBrown Memorial HospitalComment on above:ADA recommended reference rangeRandom Glucose Reference Range is dependent on time and content of last meal. Glucose of more than 200 mg/dL in a nonstressed, ambulatory subject supports the diagnosisof Diabetes Mellitus.Serum or plasma potassium measurement (moles/volume)Ordered By: Isaías Jordan on 38-20-8745Ocmezsnhy [Moles/Vol]4.1 mmol/L3.5-5.1FHocking Valley Community Hospitalerum or plasma sodium measurement (moles/volume)Ordered By: Isaías Jordan on 61-74-1668Vvyvgt [Moles/Vol]134 mmol/R406-759DkucpkemjClinton Memorial Hospitalerum or plasma total bilirubin measurement (mass/volume)Ordered By: Isaías Jordan on 79-77-5991Knnwzflhp [Mass/Vol]0.8 mg/dL0.3-1.2FHocking Valley Community Hospitalerum or plasma total carbon dioxide measurement (moles/volume)Ordered By: Isaías Jordan on 28-41-2309YS0 [Moles/Vol]25.4 mmol/L22.0-30.0[facility] Hospitalerum or plasma urea nitrogen measurement (mass/volume)Ordered By: Isaías Jordan on 08-38-1299Cqsv nitrogen [Mass/Vol]14 mg/dL9-23[facility] HospitalAlbumin [Mass/volume] in Serum or PlasmaOrdered By: Isaías Jordan on 07-06-2022 Albumin [Mass/Vol]4.2 g/dL3.2-5.5FOhioHealth Riverside Methodist HospitalCBC AUTO DIFF on 26-76-6428AURZ #0.0 103/ulNormal0.0-0.1The [facility] LimaComment on above: Performed By: #### MG, CMP #### [facility] [address] [address] [address] Doreen Bullardphils/100 WBC (Bld)0.7 %Normal0.2-2.0The [facility] Comment on above:Performed By: #### MG, CMP #### [facility] [address] [address] [address] Doreen Everett #0.1 103/ulNormal0.0-0.7The [facility] LimaComment on above: Performed By: #### MG, CMP #### [facility] [address] [place] [address] Dr. Doreen Gregoryosinophils/100 WBC (Bld)1.1 %Normal0.9-7.0The [facility] on above:Performed By: #### MG, CMP #### [facility] [address] [place] [address] Dr. Doreen Gregoryrythrocyte distribution width (RBC) [Ratio]16.9 %Critically high 11.0-15.0The [facility] Centerment on above:Performed By: #### MG, CMP #### [facility] [address] [place] [address] Dr. Doreen BetancourtHematocrit (Bld) [Volume fraction]38.9 %Znxudl84.0-48.0The [facility] LimaComment on above:Performed By: #### MG, CMP #### [facility] [address] [place] [address] Dr. Doreen BetancourtHemoglobin (Bld) [Mass/Vol]14.2 g/sDEehcwi68.0-16.0The [facility] Centerment on above:Performed By: #### MG, CMP #### [facility] [address] [place] [address] Dr. Doreen Shepherd #0.01 10e3/ulNormal0.00-0.03The [facility] Centerment on above:Performed By: #### MG, CMP #### [facility] [address] [place] [address] Dr. Doreen Shepherd %0.2 %Normal0.0-0.5The [facility] LimaComment on above: Performed By: #### MG, CMP #### [facility] [address] [place] [address] Dr. Doreen Kaiser #2.0 103/ulNormal1.2-3.8The [facility]Comsur[facility] on above:Performed By: #### MG, CMP #### [facility] [address] [place] [address] Dr. Yilan ChangLymphocytes/100 WBC (Bld)43.2 %Golaei11.5-60.0The [facility] LimaComment on above:Performed By: #### MG, CMP #### [facility] [address] [place] [address] Dr. Doreen DixonUAL DIFF REQNONormalThe [facility] LimaComment on above: Performed By: #### MG, CMP #### [facility] [address] [place] [address] Dr. Doreen Stearns (RBC) [Entitic mass]34.5 pgCritically high26.7-34.0The [facility] LimaComment on above:Performed By: #### MG, CMP #### [facility] [address] [place] [address] Dr. Doreen Stearns (RBC) [Mass/Vol]36.5 g/dLCritically high29.9-35.2The [facility] LimaComment on above:Performed By: #### MG, CMP #### [facility] [address] [place] [address] Dr. Doreen Alejo (RBC) [Entitic vol]94.6 kVOwtxrz33.0-99.0The [facility] LimaComment on above:Performed By: #### MG, CMP #### [facility] [address] [place] [address] Dr. Doreen Cheema #0.4 103/ulNormal0.3-0.8The [facility] LimaComment on above:Performed By: #### MG, CMP #### [facility] [address] [place] [address] Dr. Doreen Ruizocytes/100 WBC (Bld)9.6 %Normal1.7-12.0The [facility] Comment on above:Performed By: #### MG, CMP #### [facility] [address] [place] [address] Dr. Doreen Brar #2.1 103/ulNormal1.4-6.5The [facility] LimaComment on above:Performed By: #### MG, CMP #### [facility] [address] [place] [address] Dr. Doreen BetancourtNeutrophils/100 WBC (Bld)45.2 %Mcofcs47.0-75.0The [facility] on above:Performed By: #### MG, CMP #### [facility] [address] [place] [address] Dr. Doreen Goldsteinlet mean volume (Bld) [Entitic vol]9.8 fLNormal9.5-13.5The [facility] LimaComment on above:Performed By: #### MG, CMP #### [facility] [address] [place] [address] Dr. Doreen BetancourtPLT155 103/rhAktjbx259-473Bzk [facility] on above: Performed By: #### MG, CMP #### [facility] [address] [place] [address] Dr. Doreen BetancourtRBC4.11 106/ulCritically low4.20-5.40The [facility] on above:Performed By: #### MG, CMP #### [facility] [address] [place] [address] Dr. Doreen BetancourtWBC4.6 103/ulNormal4.0-11.0The [facility] on above: Performed By: #### MG, CMP #### [facility] [address] [place] [address] Dr. Doreen BetancourtCreatinine and Glomerular filtration rate.predicted panel (S/P/Bld)Ordered By: Isaías Jordan on 31-93-0049Rqktecvfll [Mass/Vol]0.43 mg/dL0.44-1.03Brown Memorial HospitalEstimated glomerular filtration rate (GFR) non- AmericanOrdered By: Isaías Jordan on 07-06-2022 GFR/1.73 sq M.predicted among non-blacks MDRD (S/P/Bld) [Vol rate/Area]> 60 mL/MinBrown Memorial HospitalGlobulin Calc (S) [Mass/Vol]Ordered By: Isaías Jordan on 95-39-7729Qoqmlqxz (S) [Mass/Vol]2.6 g/dLBrown Memorial HospitalLaboratory - Chemistry and Chemistry - challengeOrdered By: Isaías Jordan on 24-01-6880Inwstgvoh [Mass/Vol]2.8 mg/dL1.6-2.6FOhioHealth Riverside Methodist HospitalMAGNESIUMon 13-10-1040Fworhrpxp [Mass/Vol]2.0 mg/dLNormal 1.8-2.4The [facility] LimaComment on above:Performed By: #### CBC #### [facility] [address] [place] [address] Dr. Doreen Posada Panel InformationOrdered By: Isaías Jordan on 07-06-2022 Estimated GFR ()> 60 mL/MinBrown Memorial Hospital Comment on above:GFR estimated reference range: According to KDOQI guidelines, <60 ml/min/1.73m2 is sufficient todiagnose a patient with chronic kidney disease.Pharmacy Creatinine Clearance (ChemN/[facility] PROF 14(COMP METB)on 29-34-5846Afahwqz [Mass/Vol]4.2 g/dLNormal3.4-5.0The [facility] LimaComment on above:Result Comment[place] [facility] [place] ultrafuged specimenPerformed By: #### CBC #### [facility] [address] [place] [address] Dr. Doreen BetancourtAlbumin/Globulin [Mass ratio]1.6 {ratio}NormalThe [facility] Hospital LimaComment on above:Performed By: #### CBC #### [facility] [address] [address] [address] Doreen Lopez [Catalytic activity/Vol]102 U/MTqtdvd46-223Osi [facility]imaComment on above:Result Comment: [place] [facility] [place] Performed By: #### CBC #### [facility] [address] [place] [address] Dr. Doreen Friend [Catalytic activity/Vol]38 U/VBykfkc14-41Xne [facility] LimaComment on above:Result Comment: [place] [facility] [place] Performed By: #### CBC #### [facility] [address] [address] [address] Doreen BetancourtAnion gap [Moles/Vol]11.9 mmol/LNormalThe [facility] Comment on above:Performed By: #### CBC #### [facility] [address] [address] [address] Doreen BetancourtAST [Catalytic activity/Vol]49 U/LCritically nbhx82-09Bkg [facility] LimaComment on above:Result Comment: [place] [facility] [place] ultrafuged specimenPerformed By: #### CBC #### [facility] [address] [address] [address] Doreen BetancourtBilirubin [Mass/Vol]0.7 mg/dLNormal0.2-1.0[facility] Comment on above:Result Comment: [place] [facility] [place] ultrafuged specimenPerformed By: #### CBC #### [facility] [address] [address] [address] Doreen BetancourtCalcium [Mass/Vol]9.5 mg/dLNormal8.5-10.1[facility] Comment on above:Result Comment: [place] [facility] [place] ultrafuged specimenPerformed By: #### CBC #### [facility] [address] [place] [address] Dr. Doreen BetancourtChloride [Moles/Vol]101 mmol/KSddkeg39-130Kxk [facility] Comment on above:Result Comment: [place] [facility] [place] ultrafuged specimenPerformed By: #### CBC #### [facility] [address] [place] [address] Dr. Doreen BetancourtCO2 [Moles/Vol]25.4 mmol/VDtmopi80.0-32.0The [facility] Comment on above:Result Comment: [place] [facility] [place] ultrafuged specimenPerformed By: #### CBC #### [facility] [address] [place] [address] Dr. Doreen BetancourtCreatinine [Mass/Vol]0.43 mg/dLCritically low0.55-1.02The [facility] LimaComment on above:Result Comment: [place] [facility] [place] ultrafuged specimenPerformed By: #### CBC #### [facility] [address] [address] [address] Doreen GregoryGFR-AF EGYPTIAN>60Normal>=60The [facility] LimaComment on above:Performed By: #### CBC #### [facility] [address] [address] [address] Doreen GregoryGFR-NON AF EGYPTIAN>60Normal>=60The [facility] LimaComment on above:Performed By: #### CBC #### [facility] [address] [address] [address] Doreen BetancourtGlobulin (S) [Mass/Vol]2.6 g/dLNormalThe [facility] LimaComment on above:Performed By: #### CBC #### [facility] [address] [place] [address] Dr. Doreen BetancourtGlucose [Mass/Vol]102 mg/vENzwmho44-850Jqh [facility] Comment on above:Result Comment: [place] [facility] [place] ultrafuged specimenPerformed By: #### CBC #### [facility] [address] [place] [address] Dr. Doreen BetancourtPotassium [Moles/Vol]5.3 mmol/LCritically high3.5-5.1[facility] HospitalComment on above:Result Comment: [place] [facility] [place] Performed By: #### CBC #### [facility] [address] [place] [address] Dr. Doreen BetancourtProtein [Mass/Vol]6.8 g/dLNormal6.4-8.2The [facility] Comment on above:Result Comment: [place] [facility] [place] ultrafuged specimenPerformed By: #### CBC #### [facility] [address] [place] [address] Dr. Doreen BetancourtSodium [Moles/Vol]133 mmol/LCritically tjx521-604Qfx [facility] LimaComment on above:Result Comment: [place] [facility] [place] Performed By: #### CBC #### [facility] [address] [address] [address] Doreen BetancourtUrea nitrogen [Mass/Vol]18.0 mg/dLNormal7.0-18.0The [facility] LimaComment on above:Result Comment: [place] [facility] [place] Performed By: #### CBC #### [facility] [address] [address] [address] Doreen BetancourtUrea nitrogen/Creatinine [Mass ratio]41.6 mg/mgNormalThe [facility] LimaComment on above:Performed By: #### CBC #### [facility] [address] [address] [address] Doreen BetancourtProtein [Mass/volume] in Serum or PlasmaOrdered By: Isaías Jordan on 26-57-7260Gmfuypa [Mass/Vol]6.8 g/dL6.1-7.9Clinton Memorial Hospitalerum or plasma alanine aminotransferase measurement without P-5'-P (enzymatic activiOrdered By: Isaías Jordan on 32-27-5078EXH No additional P-5'-P [Catalytic activity/Vol]38 U/H97-28WrnockfsrClinton Memorial Hospitalerum or plasma albumin/globulin mass ratioOrdered By: Isaías Jordan on 98-97-0374Coxojnl/Globulin [Mass ratio]1.6 {ratio}[facility] Hospitalerum or plasma alkaline phosphatase measurement (enzymatic activity/volume)Ordered By: Isaías Jordan on 52-64-0676AKC [Catalytic activity/Vol]102 U/K18-21PvhwfgwfqClinton Memorial Hospitalerum or plasma anion gap determinationOrdered By: Isaías Jordan on 21-80-6820Wgmop gap [Moles/Vol]11.9 mmol/L6.0-15.0[facility] Hospitalerum or plasma aspartate aminotransferase measurement (enzymatic activity/volume)Ordered By: Isaías Jordan on 60-06-5272XJC [Catalytic activity/Vol]49 U/P51-86BiulnboldClinton Memorial Hospitalerum or plasma calcium measurement (mass/volume)Ordered By: Isaías Jordan on 33-83-5244Ktvmhxg [Mass/Vol]9.5 mg/dL8.2-10.2FHocking Valley Community Hospitalerum or plasma chloride measurement (moles/volume) Ordered By: Isaías Jordan on 58-49-4742Lbotqzpu [Moles/Vol]101 mmol/L95-114 [facility] Hospitalerum or plasma glucose measurement (mass/volume)Ordered By: Isaías Jordan on 50-21-4642Otxamkd [Mass/Vol]102 mg/bT02-343DhpinemzuBrown Memorial HospitalComment on above:ADA recommended reference rangeRandom Glucose Reference Range is dependent on time and content of last meal. Glucose of more than 200 mg/dL in a nonstressed, ambulatory subject supports the diagnosisof Diabetes Mellitus.Serum or plasma potassium measurement (moles/volume)Ordered By: Isaías Jordan on 25-11-3025Calbhdvry [Moles/Vol]5.3 mmol/L3.5-5.1FHocking Valley Community Hospitalerum or plasma sodium measurement (moles/volume)Ordered By: Isaías Jordan on 07-06-2022 Sodium [Moles/Vol]133 mmol/W064-724SmdrvkkiaClinton Memorial Hospitalerum or plasma total bilirubin measurement (mass/volume)Ordered By: Isaías Jordan on 26-23-4018Exrpzkdzs [Mass/Vol]0.7 mg/dL0.3-1.2FOhioHealth Riverside Methodist Hospital Serum or plasma total carbon dioxide measurement (moles/volume)Ordered By: Isaías Jordan on 01-14-6070WR4 [Moles/Vol]25.4 mmol/L22.0-30.0[facility] Hospitalerum or plasma urea nitrogen measurement (mass/volume) Ordered By: Isaías Jordan on 03-09-2760Dwsf nitrogen [Mass/Vol]18 mg/dL9-23 [facility] Memorial HospitalCBC AUTO DIFFon 67-63-7423XMXA #0.0 103/ul Normal0.0-0.1The [facility] LimaComment on above:Performed By: #### CBC #### [facility] [address] [address] [address] Doreen BetancourtBasophils/100 WBC (Bld)0.5 %Normal0.2-2.0The [facility] Comment on above:Performed By: #### CBC #### [facility] [address] [address] [address] Doreen Everett #0.1 103/ulNormal0.0-0.7The [facility] LimaComment on above: Performed By: #### CBC #### [facility] [address] [place] [address] Dr. Doreen Gregoryosinophils/100 WBC (Bld)1.3 %Normal0.9-7.0The [facility] Comment on above:Performed By: #### CBC #### [facility] [address] [place] [address] Dr. Doreen Gregoryrythrocyte distribution width (RBC) [Ratio]15.3 %Critically high 11.0-15.0The [facility] Centerment on above:Performed By: #### CBC #### [facility] [address] [place] [address] Dr. Doreen BetancourtHematocrit (Bld) [Volume fraction]38.7 %Gknoqm12.0-48.0The [facility] LimaComment on above:Performed By: #### CBC #### [facility] [address] [place] [address] Dr. Doreen BetancourtHemoglobin (Bld) [Mass/Vol]12.5 g/cOUysprh32.0-16.0The [facility] LimaComment on above:Performed By: #### CBC #### [facility] [address] [place] [address] Dr. Doreen Shepherd #0.01 10e3/ulNormal0.00-0.03The [facility] LimaComment on above:Performed By: #### CBC #### [facility] [address] [place] [address] Dr. Doreen Shepherd %0.3 %Normal0.0-0.5The [facility] LimaComment on above: Performed By: #### CBC #### [facility] [address] [place] [address] Dr. Doreen Kaiser #1.8 103/ulNormal1.2-3.8The [facility] LimaComment on above:Performed By: #### CBC #### [facility] [address] [place] [address] Dr. Doreen Nunezmphocytes/100 WBC (Bld)46.0 %Awteml82.5-60.0The [facility] LimaComment on above:Performed By: #### CBC #### [facility] [address] [place] [address] Dr. Doreen DixonUAL DIFF REQNONormalThe [facility] LimaComment on above: Performed By: #### CBC #### [facility] [address] [place] [address] Dr. Doreen Stearns (RBC) [Entitic mass]30.0 fnFlsadf19.7-34.0The [facility] LimaComment on above:Performed By: #### CBC #### [facility] [address] [place] [address] Dr. Doreen Stearns (RBC) [Mass/Vol]32.3 g/lRSwcbgq93.9-35.2The [facility] LimaComment on above:Performed By: #### CBC #### [facility] [address] [place] [address] Dr. Doreen Stearns (RBC) [Entitic vol]93.0 gELgmago65.0-99.0The [facility]imaComment on above:Performed By: #### CBC #### [facility] [address] [place] [address] Dr. Doreen Cheema #0.4 103/ulNormal0.3-0.8The [facility]imaComment on above:Performed By: #### CBC #### [facility] [address] [place] [address] Dr. Doreen Ruizocytes/100 WBC (Bld)9.5 %Normal1.7-12.0The [facility] on above:Performed By: #### CBC #### [facility] [address] [place] [address] Dr. Doreen Brar #1.7 103/ulNormal1.4-6.5The [facility]imaComment on above:Performed By: #### CBC #### [facility] [address] [place] [address] Dr. Doreen BetancourtNeutrophils/100 WBC (Bld)42.4 %Critically low43.0-75.0The [facility] on above:Performed By: #### CBC #### [facility] [address] [place] [address] Dr. Doreen BetancourtPlatelet mean volume (Bld) [Entitic vol]9.9 fLNormal9.5-13.5The [facility]imaComsurgeons [facility] on above:Performed By: #### CBC #### [facility] [address] [place] [address] Dr. Doreen BetancourtPLT178 103/urRysuzd988-668Fqn [facility] on above: Performed By: #### CBC #### [facility] [address] [place] [address] Dr. Doreen BetancourtRBC4.16 106/ulCritically low4.20-5.40The [facility] on above:Performed By: #### CBC #### [facility] [address] [place] [address] Dr. Doreen BetancourtWBC4.0 103/ulNormal4.0-11.0The [facility] on above: Performed By: #### CBC #### [facility] [address] [place] [address] Dr. Doreen BetancourtMAGNESIUMon 83-31-5360Dancaojzv [Mass/Vol]1.9 mg/dLNormal1.8-2.4 The [facility]imaComsurgeons [facility] on above:Performed By: #### MG, CMP #### [facility] [address] [place] [address] Dr. Doreen BetancourtPROJasen 14(COMP METB)on 89-52-0579Phaxzxu [Mass/Vol]3.7 g/dLNormal 3.4-5.0The [facility] on above:Performed By: #### MG, CMP #### [facility] [address] [address] [address] Doreen BetancourtAlbumin/Globulin [Mass ratio]1.1 {ratio}NormalThe [facility] LimaComment on above:Performed By: #### MG, CMP #### [facility] [address] [address] [address] Doreen CarolinaP [Catalytic activity/Vol]125 U/LCritically tubf86-840Uho [facility]imaComment on above:Performed By: #### MG, CMP #### [facility] [address] [place] [address] Dr. Doreen CarolinaT [Catalytic activity/Vol]16 U/HGxoodj92-59Hip [facility]imaComment on above:Performed By: #### MG, CMP #### [facility] [address] [place] [address] Dr. Doreen Sharifon gap [Moles/Vol]8.8 mmol/LNormalThe [facility] LimaComment on above:Performed By: #### MG, CMP #### [facility] [address] [place] [address] Dr. Doreen BetancourtAST [Catalytic activity/Vol]5 U/LCritically wjw89-12Udm [facility] LimaComment on above:Performed By: #### MG, CMP #### [facility] [address] [place] [address] Dr. Doreen BetancourtBilirubin [Mass/Vol]0.3 mg/dLNormal0.2-1.0The [facility] Comment on above:Performed By: #### MG, CMP #### [facility] [address] [place] [address] Dr. Doreen BetancourtCalcium [Mass/Vol]8.8 mg/dLNormal8.5-10.1The [facility] Comment on above:Performed By: #### MG, CMP #### [facility] [address] [place] [address] Dr. Doreen BetancourtChloride [Moles/Vol]104 mmol/KKpbapm68-702Oqx [facility] Comment on above:Performed By: #### MG, CMP #### [facility] [address] [address] [address] Doreen BetancourtCO2 [Moles/Vol]29.5 mmol/DNwxibk46.0-32.0The [facility] Comment on above:Performed By: #### MG, CMP #### [facility] [address] [place] [address] Dr. Doreen BetancourtCreatinine [Mass/Vol]0.75 mg/dLNormal0.55-1.02The [facility] LimaComment on above:Performed By: #### MG, CMP #### [facility] [address] [place] [address] Dr. Doreen GregoryGFR-AF EGYPTIAN>60Normal>=60The [facility] LimaComment on above:Performed By: #### MG, CMP #### [facility] [address] [place] [address] Dr. Doreen GregoryGFR-NON AF EGYPTIAN>60Normal>=60The [facility] LimaComment on above:Performed By: #### MG, CMP #### [facility] [address] [place] [address] Dr. Doreen BetancourtGlobulin (S) [Mass/Vol]3.3 g/dLNormalThe [facility] LimaComment on above:Performed By: #### MG, CMP #### [facility] [address] [place] [address] Dr. Doreen BetancourtGlucose [Mass/Vol]110 mg/dLCritically cxjp66-930Php [facility] LimaComment on above:Performed By: #### MG, CMP #### [facility] [address] [place] [address] Dr. Doreen BetancourtPotassium [Moles/Vol]4.3 mmol/LNormal3.5-5.1The [facility] Comment on above:Performed By: #### MG, CMP #### [facility] [address] [place] [address] Dr. Doreen BetancourtProtein [Mass/Vol]7.0 g/dLNormal6.4-8.2The [facility] Comment on above:Performed By: #### MG, CMP #### [facility] [address] [address] [address] Doreen Maderadium [Moles/Vol]138 mmol/FWrulwa842-231Lsf [facility] Comment on above:Performed By: #### MG, CMP #### [facility] [address] [place] [address] Dr. Doreen Copeland nitrogen [Mass/Vol]11.0 mg/dLNormal7.0-18.0The [facility] LimaComment on above:Performed By: #### MG, CMP #### [facility] [address] [place] [address] Dr. Doreen BetancourtUrea nitrogen/Creatinine [Mass ratio]14.7 mg/mgNormalThe [facility] LimaComment on above:Performed By: #### MG, CMP #### [facility] [address] [place] [address] Dr. Doreen Keller AUTO DIFFon 35-46-3365TGPY #0.0 103/ulNormal0.0-0.1The [facility] LimaComment on above:Performed By: #### MG, CMP #### [facility] [address] [place] [address] Dr. Doreen BetancourtBasophils/100 WBC (Bld)0.8 %Normal0.2-2.0[facility] Comment on above:Performed By: #### MG, CMP #### [facility] [address] [place] [address] Dr. Doreen Everett #0.1 103/ulNormal0.0-0.7The [facility] LimaComment on above: Performed By: #### MG, CMP #### [facility] [address] [place] [address] Dr. Doreen Gregoryosinophils/100 WBC (Bld)2.3 %Normal0.9-7.0The [facility] Comment on above:Performed By: #### MG, CMP #### [facility] [address] [place] [address] Dr. Doreen Gregoryrythrocyte distribution width (RBC) [Ratio]14.5 %Ulkwly78.0-15.0 The [facility] LimaComment on above:Performed By: #### MG, CMP #### [facility] [address] [place] [address] Dr. Doreen Espinozaatocrit (Bld) [Volume fraction]38.8 %Nnwglu09.0-48.0The [facility] LimaComment on above:Performed By: #### MG, CMP #### [facility] [address] [place] [address] Dr. Doreen BetancourtHemoglobin (Bld) [Mass/Vol]12.6 g/dUEwuqhn09.0-16.0The [facility] LimaComment on above:Performed By: #### MG, CMP #### [facility] [address] [place] [address] Dr. Doreen Shepherd #0.00 10e3/ulNormal0.00-0.03The [facility]Comsur[facility] on above:Performed By: #### MG, CMP #### [facility] [address] [place] [address] Dr. Doreen Shepherd %0.0 %Normal0.0-0.5The [facility] LimaComment on above: Performed By: #### MG, CMP #### [facility] [address] [place] [address] Dr. Doreen Kaiser #1.9 103/ulNormal1.2-3.8The [facility] LimaComment on above:Performed By: #### MG, CMP #### [facility] [address] [place] [address] Dr. Doreen Camachohocytes/100 WBC (Bld)46.7 %Taouve43.5-60.0The [facility] LimaComment on above:Performed By: #### MG, CMP #### [facility] [address] [place] [address] Dr. Doreen DixonUAL DIFF REQNONormalThe [facility] LimaComment on above: Performed By: #### MG, CMP #### [facility] [address] [place] [address] Dr. Doreen Tapia (RBC) [Entitic mass]30.3 phGvcjhm85.7-34.0The [facility] LimaComment on above:Performed By: #### MG, CMP #### [facility] [address] [place] [address] Dr. Doreen Stearns (RBC) [Mass/Vol]32.5 g/kCLuwyhe25.9-35.2The [facility] LimaComment on above:Performed By: #### MG, CMP #### [facility] [address] [place] [address] Dr. Doreen Stearns (RBC) [Entitic vol]93.3 tFDehiah36.0-99.0The [facility] LimaComment on above:Performed By: #### MG, CMP #### [facility] [address] [place] [address] Dr. Doreen Cheema #0.4 103/ulNormal0.3-0.8The [facility] LimaComment on above:Performed By: #### MG, CMP #### [facility] [address] [place] [address] Dr. Doreen Ruizocytes/100 WBC (Bld)11.1 %Normal1.7-12.0The [facility] Comment on above:Performed By: #### MG, CMP #### [facility] [address] [place] [address] Dr. Doreen Brra #1.6 103/ulNormal1.4-6.5The [facility] LimaComment on above:Performed By: #### MG, CMP #### [facility] [address] [place] [address] Dr. Doreen Wrenutrophils/100 WBC (Bld)39.1 %Critically low43.0-75.0The [facility] LimaComment on above:Performed By: #### MG, CMP #### [facility] [address] [place] [address] Dr. Doreen Basilio mean volume (Bld) [Entitic vol]9.9 fLNormal9.5-13.5The [facility] LimaComment on above:Performed By: #### MG, CMP #### [facility] [address] [place] [address] Dr. Doreen BetancourtPLT220 103/ruZyhuig845-042Onb [facility] LimaComment on above: Performed By: #### MG, CMP #### [facility] [address] [place] [address] Dr. Doreen BetancourtRBC4.16 106/ulCritically low4.20-5.40The [facility] LimaComment on above:Performed By: #### MG, CMP #### [facility] [address] [place] [address] Dr. Doreen BetancourtWBC4.0 103/ulNormal4.0-11.0The [facility] LimaComment on above: Performed By: #### MG, CMP #### [facility] [address] [place] [address] Dr. Doreen BetancourtMAGNESIUMon 73-47-7991Uarhetwob [Mass/Vol]2.2 mg/dLNormal1.8-2.4 The [facility] LimaComment on above:Performed By: #### CVDTBH #### [facility] [address] [place] [address] Dr. Doreen Silva 14(COMP METB)on 25-84-4826Ntqkpxt [Mass/Vol]3.9 g/dLNormal 3.4-5.0The [facility] LimaComment on above:Performed By: #### CVDTBH #### [facility] [address] [place] [address] Dr. Doreen BetancourtAlbumin/Globulin [Mass ratio]1.1 {ratio}NormalThe [facility] LimaComment on above:Performed By: #### CVDTBH #### [facility] [address] [place] [address] Dr. Doreen Lopez [Catalytic activity/Vol]100 U/FWnalhl10-388Hef [facility]imaComment on above:Performed By: #### CVDTBH #### [facility] [address] [place] [address] Dr. Yilan ChangALT [Catalytic activity/Vol]19 U/OLpazuy37-08Usc [facility]imaComment on above:Performed By: #### CVDTBH #### [facility] [address] [place] [address] Dr. Doreen Sharifon gap [Moles/Vol]6.9 mmol/LNormalThe [facility] LimaComment on above:Performed By: #### CVDTBH #### [facility] [address] [place] [address] Dr. Doreen BetancourtAST [Catalytic activity/Vol]14 U/LCritically abl26-95Aik [facility]imaComment on above:Performed By: #### CVDTBH #### [facility] [address] [place] [address] Dr. Doreen BetancourtBilirubin [Mass/Vol]0.3 mg/dLNormal0.2-1.0The [facility] Comment on above:Performed By: #### CVDTBH #### [facility] [address] [place] [address] Dr. Doreen BetancourtCalcium [Mass/Vol]9.6 mg/dLNormal8.5-10.1The [facility] Comment on above:Performed By: #### CVDTBH #### [facility] [address] [place] [address] Dr. Doreen BetancourtChloride [Moles/Vol]105 mmol/EBnuwxn62-954Kdu [facility] Comment on above:Performed By: #### CVDTBH #### [facility] [address] [place] [address] Dr. Doreen BetancourtCO2 [Moles/Vol]32.2 mmol/LCritically high21.0-32.0The [facility]imaComment on above:Performed By: #### CVDTBH #### [facility] [address] [place] [address] Dr. Doreen BetancourtCreatinine [Mass/Vol]0.69 mg/dLNormal0.55-1.02The [facility]imaComment on above:Performed By: #### CVDTBH #### [facility] [address] [address] [address] Doreen GregoryGFR-AF EGYPTIAN>60Normal>=60The [facility]imaComment on above:Performed By: #### CVDTBH #### [facility] [address] [address] [address] Doreen GregoryGFR-NON AF EGYPTIAN>60Normal>=60The [facility]imaComment on above:Performed By: #### CVDTBH #### [facility] [address] [address] [address] Doreen BetancourtGlobulin (S) [Mass/Vol]3.6 g/dLNormalThe [facility] LimaComment on above:Performed By: #### CVDTBH #### [facility] [address] [place] [address] Dr. Doreen BetancourtGlucose [Mass/Vol]103 mg/oXZrlyvi72-550MmuOhio [facility] Surgical Hospital Comment on above:Performed By: #### CVDTBH #### [facility] [address] [place] [address] Dr. Doreen BetancourtPotassium [Moles/Vol]5.1 mmol/LNormal3.5-5.1The [facility] Comment on above:Performed By: #### CVDTBH #### [facility] [address] [place] [address] Dr. Doreen BetancourtProtein [Mass/Vol]7.5 g/dLNormal6.4-8.2The [facility] Comment on above:Performed By: #### CVDTBH #### [facility] [address] [place] [address] Dr. Doreen BetancourtSodium [Moles/Vol]139 mmol/ELskcua508-490Etb [facility] Comment on above:Performed By: #### CVDTBH #### [facility] [address] [place] [address] Dr. Doreen BetancourtUrea nitrogen [Mass/Vol]13.0 mg/dLNormal7.0-18.0The [facility]imaComment on above:Performed By: #### CVDTBH #### [facility] [address] [place] [address] Dr. Doreen BetancourtUrea nitrogen/Creatinine [Mass ratio]18.8 mg/mgNoalThe [facility] LimaComment on above:Performed By: #### CVDTBH #### [facility] [address] [place] [address] Dr. Doreen Keller AUTO DIFFon [id number] #0.0 103/ulNormal0.0-0.1The [facility]imaComment on above:Performed By: #### CBC #### [facility] [address] [place] [address] Dr. Doreen BetancourtBasophils/100 WBC (Bld)0.7 %Normal0.2-2.0The [facility] Comment on above:Performed By: #### CBC #### [facility] [address] [place] [address] Dr. Doreen GregoryO #0.1 103/ulNormal0.0-0.7The [facility]imaComment on above: Performed By: #### CBC #### [facility] [address] [place] [address] Dr. Doreen Gregoryosinophils/100 WBC (Bld)2.0 %Normal0.9-7.0The [facility] Comment on above:Performed By: #### CBC #### [facility] [address] [place] [address] Dr. Doreen Gregoryrythrocyte distribution width (RBC) [Ratio]13.9 %Zsyjyv87.0-15.0 The [facility] LimaComment on above:Performed By: #### CBC #### [facility] [address] [place] [address] Dr. Doreen BetancourtHematocrit (Bld) [Volume fraction]41.2 %Agzcow47.0-48.0The [facility] LimaComment on above:Performed By: #### CBC #### [facility] [address] [place] [address] Dr. Doreen BetancourtHemoglobin (Bld) [Mass/Vol]13.2 g/jUXbltxy72.0-16.0The [facility]imaComment on above:Performed By: #### CBC #### [facility] [address] [place] [address] Dr. Doreen Shepherd #0.01 10e3/ulNormal0.00-0.03The [facility]imaComment on above:Performed By: #### CBC #### [facility] [address] [place] [address] Dr. Doreen Shepherd %0.2 %Normal0.0-0.5The [facility]imaComment on above: Performed By: #### CBC #### [facility] [address] [place] [address] Dr. Doreen Kaiser #1.9 103/ulNormal1.2-3.8The [facility] LimaComment on above:Performed By: #### CBC #### [facility] [address] [place] [address] Dr. Doreen Camachohocytes/100 WBC (Bld)41.0 %Rgjnjj75.5-60.0The [facility] LimaComment on above:Performed By: #### CBC #### [facility] [address] [place] [address] Dr. D[facility]en [facility]AD[facility] DIFF REQNONormalThe [facility] LimaComment on above: Performed By: #### CBC #### [facility] [address] [place] [address] Dr. Doreen Stearns (RBC) [Entitic mass]29.3 rpFepakh84.7-34.0The [facility] LimaComment on above:Performed By: #### CBC #### [facility] [address] [place] [address] Dr. Doreen Stearns (RBC) [Mass/Vol]32.0 g/vYYwwwal92.9-35.2The [facility] LimaComment on above:Performed By: #### CBC #### [facility] [address] [place] [address] Dr. Doreen Stearns (RBC) [Entitic vol]91.6 pPCkqpjk92.0-99.0The [facility]imaComment on above:Performed By: #### CBC #### [facility] [address] [place] [address] Dr. Doreen Cheema #0.1 103/ulCritically low0.3-0.8The [facility]imaComment on above:Performed By: #### CBC #### [facility] [address] [place] [address] Dr. Doreen Ruizocytes/100 WBC (Bld)1.5 %Critically low1.7-12.0The [facility]imaComment on above:Performed By: #### CBC #### [facility] [address] [place] [address] Dr. Doreen Brar #2.5 103/ulNormal1.4-6.5The [facility]imaComment on above:Performed By: #### CBC #### [facility] [address] [place] [address] Dr. Doreen Wrenutrophils/100 WBC (Bld)54.6 %Orluis67.0-75.0The [facility]imaComment on above:Performed By: #### CBC #### [facility] [address] [place] [address] Dr. Droeen Basilio mean volume (Bld) [Entitic vol]10.5 fLNormal9.5-13.5The [facility]imaComment on above:Performed By: #### CBC #### [facility] [address] [place] [address] Dr. Doreen BetancourtPLT270 103/ibGumoab306-199Jnn [facility]imaComment on above: Performed By: #### CBC #### [facility] [address] [place] [address] Dr. Doreen BetancourtRBC4.50 106/ulNormal4.20-5.40The [facility]imaComment on above:Performed By: #### CBC #### [facility] [address] [place] [address] Dr. Doreen BetancourtWBC4.6 103/ulNormal4.0-11.0The [facility]imaComment on above: Performed By: #### CBC #### [facility] [address] [place] [address] Dr. Doreen Silva 14(COMP METB)on 72-81-8758Ivxuqod [Mass/Vol]3.9 g/dLNormal 3.4-5.0The [facility]imaComment on above:Performed By: #### CBC #### [facility] [address] [place] [address] Dr. Doreen BetancourtAlbumin/Globulin [Mass ratio]1.0 {ratio}NormalThe [facility] LimaComment on above:Performed By: #### CBC #### [facility] [address] [place] [address] Dr. Doreen Lopez [Catalytic activity/Vol]83 U/HBxqlob29-768Ech [facility]imaComment on above:Performed By: #### CBC #### [facility] [address] [place] [address] Dr. Doreen Friend [Catalytic activity/Vol]22 U/MOvbobw91-19Zdu [facility]imaComment on above:Performed By: #### CBC #### [facility] [address] [place] [address] Dr. Doreen Cifuentes gap [Moles/Vol]12.6 mmol/LNormalThe [facility] Comment on above:Performed By: #### CBC #### [facility] [address] [place] [address] [address] [Catalytic activity/Vol]16 U/NZhgdmy91-17Ufc [facility] Centerment on above:Performed By: #### CBC #### [facility] [address] [place] [address] Dr. Doreen BetancourtBilirubin [Mass/Vol]0.6 mg/dLNormal0.2-1.0The [facility] Comment on above:Performed By: #### CBC #### [facility] [address] [place] [address] Dr. Doreen BetancourtCalcium [Mass/Vol]9.4 mg/dLNormal8.5-10.1[facility] Comment on above:Performed By: #### CBC #### [facility] [address] [address] [address] Doreen BetancourtChloride [Moles/Vol]101 mmol/DSchfcj50-149Khc [facility] Comment on above:Performed By: #### CBC #### [facility] [address] [address] [address] Doreen BetancourtCO2 [Moles/Vol]25.9 mmol/WQuunky23.0-32.0The [facility] Comment on above:Performed By: #### CBC #### [facility] [address] [address] [address] Doreen BetancourtCreatinine [Mass/Vol]0.64 mg/dLNormal0.55-1.02[facility] HospitalComment on above:Performed By: #### CBC #### [facility] [address] [address] [address] Doreen GregoryGFR-AF EGYPTIAN>60Normal>=60The [facility]imaComment on above:Performed By: #### CBC #### [facility] [address] [address] [address] Doreen GregoryGFR-NON AF EGYPTIAN>60Normal>=60The [facility]imaComment on above:Performed By: #### CBC #### [facility] [address] [address] [address] Doreen BetancourtGlobulin (S) [Mass/Vol]3.9 g/dLNormalThe [facility]imaComment on above:Performed By: #### CBC #### [facility] [address] [address] [address] Doreen BetancourtGlucose [Mass/Vol]135 mg/dLCritically qojv67-775Llr [facility]imaComment on above:Performed By: #### CBC #### [facility] [address] [address] [address] Doreen BetancourtPotassium [Moles/Vol]4.5 mmol/LNormal3.5-5.1[facility] Comment on above:Performed By: #### CBC #### [facility] [address] [address] [address] Doreen BetancourtProtein [Mass/Vol]7.8 g/dLNormal6.4-8.2The [facility] Comment on above:Performed By: #### CBC #### [facility] [address] [place] [address] Dr. Doreen BetancourtSodium [Moles/Vol]135 mmol/LCritically wpo123-962Ffx [facility]imaComment on above:Performed By: #### CBC #### [facility] [address] [place] [address] Dr. Doreen BetancourtUrea nitrogen [Mass/Vol]15.0 mg/dLNormal7.0-18.0The [facility]imaComment on above:Performed By: #### CBC #### [facility] [address] [place] [address] Dr. Doreen BetancourtUrea nitrogen/Creatinine [Mass ratio]23.4 mg/mgNormalThe [facility]imaComment on above:Performed By: #### CBC #### [facility] [address] [place] [address] Dr. Doreen Keller AUTO DIFFon [id number] #0.0 103/ulNormal0.0-0.1The [facility]imaComment on above:Performed By: #### CVDTBH #### [facility] [address] [place] [address] Dr. Doreen BetancourtBasophils/100 WBC (Bld)0.8 %Normal0.2-2.0The [facility] Comment on above:Performed By: #### CVDTBH #### [facility] [address] [place] [address] Dr. Doreen Everett #0.1 103/ulNormal0.0-0.7The [facility]imaComment on above: Performed By: #### CVDTBH #### [facility] [address] [place] [address] Dr. Doreen Gregoryosinophils/100 WBC (Bld)2.7 %Normal0.9-7.0The [facility] Comment on above:Performed By: #### CVDTBH #### [facility] [address] [place] [address] Dr. Doreen Gregoryrythrocyte distribution width (RBC) [Ratio]13.9 %Ahakdw39.0-15.0 The [facility]imaComment on above:Performed By: #### CVDTBH #### [facility] [address] [place] [address] Dr. Dorene BetancourtHematocrit (Bld) [Volume fraction]40.9 %Yzjuge27.0-48.0The [facility]imaComment on above:Performed By: #### CVDTBH #### [facility] [address] [place] [address] Dr. Doreen BetancourtHemoglobin (Bld) [Mass/Vol]13.1 g/xRFdckqg62.0-16.0The [facility]imaComment on above:Performed By: #### CVDTBH #### [facility] [address] [place] [address] Dr. Doreen Shepherd #0.01 10e3/ulNormal0.00-0.03The [facility]imaComment on above:Performed By: #### CVDTBH #### [facility] [address] [place] [address] Dr. Doreen Shepherd %0.2 %Normal0.0-0.5The [facility]imaComment on above: Performed By: #### CVDTBH #### [facility] [address] [place] [address] Dr. Doreen Kaiser #1.9 103/ulNormal1.2-3.8The [facility]imaComment on above:Performed By: #### CVDTBH #### [facility] [address] [place] [address] Dr. Doreen Nunezmphocytes/100 WBC (Bld)39.1 %Nqmbbg92.5-60.0The [facility]imaComment on above:Performed By: #### CVDTB #### [facility] [address] [place] [address] Dr. Doreen DixonUAL DIFF REQNONormalThe [facility]imaComment on above: Performed By: #### CVDTBH #### [facility] [address] [place] [address] Dr. Doreen Stearns (RBC) [Entitic mass]29.6 ffEojztl53.7-34.0The [facility] HospitalComment on above:Performed By: #### CVDTBH #### [facility] [address] [place] [address] Dr. Doreen Stearns (RBC) [Mass/Vol]32.0 g/eQCvuyhs44.9-35.2The [facility]imaComment on above:Performed By: #### CVDTBH #### [facility] [address] [place] [address] Dr. Doreen Stearns (RBC) [Entitic vol]92.3 nOYxdsao12.0-99.0The [facility]imaComment on above:Performed By: #### CVDTBH #### [facility] [address] [place] [address] Dr. Doreen Cheema #0.4 103/ulNormal0.3-0.8The [facility]imaComment on above:Performed By: #### CVDTBH #### [facility] [address] [place] [address] Dr. Doreen Ruizocytes/100 WBC (Bld)7.6 %Normal1.7-12.0The [facility] Comment on above:Performed By: #### CVDTBH #### [facility] [address] [place] [address] Dr. Doreen Brar #2.4 103/ulNormal1.4-6.5The [facility]imaComment on above:Performed By: #### CVDTBH #### [facility] [address] [place] [address] Dr. Doreen Wrenutrophils/100 WBC (Bld)49.6 %Iangmo81.0-75.0The [facility]imaComment on above:Performed By: #### CVDTBH #### [facility] [address] [place] [address] Dr. Doreen Goldsteinlet mean volume (Bld) [Entitic vol]10.3 fLNormal9.5-13.5The [facility]imaComment on above:Performed By: #### CVDTBH #### [facility] [address] [place] [address] Dr. Doreen BetancourtPLT274 103/dmOgvgwm104-770Jwt [facility]imaComment on above: Performed By: #### CVDTBH #### [facility] [address] [place] [address] Dr. Doreen BetancourtRBC4.43 106/ulNormal4.20-5.40The [facility]imaComment on above:Performed By: #### CVDTBH #### [facility] [address] [place] [address] Dr. Doreen BetancourtWBC4.9 103/ulNormal4.0-11.0The [facility]imaComment on above: Performed By: #### CVDTBH #### [facility] [address] [place] [address] Dr. Doreen BetancourtMAGNESIUMon 80-25-4509Yldelreop [Mass/Vol]2.1 mg/dLNormal1.8-2.4 The [facility]imaComment on above:Performed By: #### MG, CMP #### [facility] [address] [place] [address] Dr. Doreen BetancourtPREG HCG QUALon [id number], QUALNegativeNormalNEGATIVE The [facility]imaComment on above:Performed By: #### MG, CMP #### [facility] [address] [place] [address] Dr. Doreen Silva 14(COMP METB)on 13-19-1307Xbztvsx [Mass/Vol]3.9 g/dLNormal 3.4-5.0The [facility]imaComment on above:Performed By: #### MG, CMP #### [facility] [address] [address] [address] Doreen BetancourtAlbumin/Globulin [Mass ratio]1.1 {ratio}NormalThe [facility]imaComment on above:Performed By: #### MG, CMP #### [facility] [address] [address] [address] Doreen CarolinaP [Catalytic activity/Vol]81 U/OOdhsbq37-796Hqb [facility]imaComment on above:Performed By: #### MG, CMP #### [facility] [address] [address] [address] Doreen CarolinaT [Catalytic activity/Vol]27 U/AXokasj06-99Zln [facility]imaComment on above:Performed By: #### MG, CMP #### [facility] [address] [address] [address] Doreen BetancourtAnion gap [Moles/Vol]8.6 mmol/LNormalThe [facility]imaComment on above:Performed By: #### MG, CMP #### [facility] [address] [address] [address] Doreen BetancourtAST [Catalytic activity/Vol]23 U/SAzrrfx25-81Izp [facility]imaComment on above:Performed By: #### MG, CMP #### [facility] [address] [address] [address] Doreen BetancourtBilirubin [Mass/Vol]0.3 mg/dLNormal0.2-1.0The [facility] Comment on above:Performed By: #### MG, CMP #### [facility] [address] [address] [address] Doreen BetancourtCalcium [Mass/Vol]9.5 mg/dLNormal8.5-10.1The [facility] Comment on above:Performed By: #### MG, CMP #### [facility] [address] [address] [address] Doreen BetancourtChloride [Moles/Vol]104 mmol/GBxlhno44-889Wmq [facility] Comment on above:Performed By: #### MG, CMP #### [facility] [address] [address] [address] Doreen BetancourtCO2 [Moles/Vol]31.8 mmol/TVrcsdw46.0-32.0The [facility] Comment on above:Performed By: #### MG, CMP #### [facility] [address] [address] [address] Doreen BetancourtCreatinine [Mass/Vol]0.59 mg/dLNormal0.55-1.02The [facility]imaComment on above:Performed By: #### MG, CMP #### [facility] [address] [address] [address] Logan ChangEGFR-AF EGYPTIAN>60Normal>=60The [facility]imaComment on above:Performed By: #### MG, CMP #### [facility] [address] [place] [address] Dr. Doreen GregoryGFR-NON AF EGYPTIAN>60Normal>=60The [facility]imaComment on above:Performed By: #### MG, CMP #### [facility] [address] [place] [address] Dr. Doreen BetancourtGlobulin (S) [Mass/Vol]3.7 g/dLNormalThe [facility]imaComment on above:Performed By: #### MG, CMP #### [facility] [address] [address] [address] Doreen BetancourtGlucose [Mass/Vol]110 mg/dLCritically pjbp87-583Zbj [facility]imaComment on above:Performed By: #### MG, CMP #### [facility] [address] [place] [address] Dr. Doreen BetancourtPotassium [Moles/Vol]4.4 mmol/LNormal3.5-5.1The [facility] Comment on above:Performed By: #### MG, CMP #### [facility] [address] [address] [address] Doreen BetancourtProtein [Mass/Vol]7.6 g/dLNormal6.4-8.2The [facility] Comment on above:Performed By: #### MG, CMP #### [facility] [address] [address] [address] Doreen BetancourtSodium [Moles/Vol]140 mmol/IRmdmse732-794NkjOhio [facility] Comment on above:Performed By: #### MG, CMP #### [facility] [address] [address] [address] Doreen BetancourtUrea nitrogen [Mass/Vol]17.0 mg/dLNormal7.0-18.0The [facility]imaComment on above:Performed By: #### MG, CMP #### [facility] [address] [address] [address] Doreen Copeland nitrogen/Creatinine [Mass ratio]28.8 mg/mgNoBarberton Citizens HospitalComment on above:Performed By: #### MG, CMP #### [facility] [address] [address] [address] Doreen BetancourtXR CHEST 1 Von 12-92-8095NP CHEST 1 VEXAMINATION: XR CHEST 1 V [...] Electronically authenticated by: NEDA COULTER Date: 2022-05-22 11:22NoBarberton Citizens HospitalCovid-19 PCR (CVDTBH)on [id number]-CoV-2 (COVID-19) RNA MARIVEL+probe Ql (Unsp spec)Not detectedNormalNOT DETECTEDThe [facility] Comment on above:Result Comment: This test is [...] and symptoms consistent with SARS-CoV-2.Performed By: #### CVDTB #### [facility] [address] [place] [address] Dr. Doreen Keller AUTO DIFFon [id number] #0.0 103/ulNormal0.0-0.1The [facility] LimaComment on above:Performed By: #### MG, CMP #### [facility] [address] [place] [address] Dr. Doreen Pardosophils/100 WBC (Bld)0.4 %Normal0.2-2.0[facility] Comment on above:Performed By: #### MG, CMP #### [facility] [address] [place] [address] Dr. Doreen Everett #0.1 103/ulNormal0.0-0.7The [facility] LimaComment on above: Performed By: #### MG, CMP #### [facility] [address] [place] [address] Dr. Doreen Gregoryosinophils/100 WBC (Bld)0.7 %Critically low0.9-7.0The [facility]imaComment on above:Performed By: #### MG, CMP #### [facility] [address] [place] [address] Dr. Doreen Gregoryrythrocyte distribution width (RBC) [Ratio]12.9 %Dxzils14.0-15.0 The [facility] LimaComment on above:Performed By: #### MG, CMP #### [facility] [address] [address] [address] Doreen BetancourtHematocrit (Bld) [Volume fraction]32.5 %Critically low36.0-48.0 The [facility] LimaComment on above:Performed By: #### MG, CMP #### [facility] [address] [place] [address] Dr. Doreen BetancourtHemoglobin (Bld) [Mass/Vol]10.6 g/dLCritically low12.0-16.0The [facility]imaComment on above:Performed By: #### MG, CMP #### [facility] [address] [place] [address] Dr. Doreen Shepherd #0.02 10e3/ulNormal0.00-0.03The [facility] on above:Performed By: #### MG, CMP #### [facility] [address] [place] [address] Dr. Doreen Shepherd %0.3 %Normal0.0-0.5The [facility] LimaComment on above: Performed By: #### MG, CMP #### [facility] [address] [place] [address] Dr. Doreen Kaiser #2.2 103/ulNormal1.2-3.8The [facility] on above:Performed By: #### MG, CMP #### [facility] [address] [place] [address] Dr. Doreen Camachohocytes/100 WBC (Bld)32.0 %Xdsikt93.5-60.0The [facility] LimaComment on above:Performed By: #### MG, CMP #### [facility] [address] [place] [address] Dr. Doreen DixonUAL DIFF REQNONormalThe [facility] LimaComment on above: Performed By: #### MG, CMP #### [facility] [address] [place] [address] Dr. Doreen Tapia (RBC) [Entitic mass]30.5 bjCofikd08.7-34.0The [facility] LimaComment on above:Performed By: #### MG, CMP #### [facility] [address] [place] [address] Dr. Doreen Stearns (RBC) [Mass/Vol]32.6 g/wHIgqraw54.9-35.2The [facility] LimaComment on above:Performed By: #### MG, CMP #### [facility] [address] [place] [address] Dr. Doreen Stearns (RBC) [Entitic vol]93.4 tQAvklee76.0-99.0The [facility] LimaComment on above:Performed By: #### MG, CMP #### [facility] [address] [place] [address] Dr. Doreen Cheema #0.6 103/ulNormal0.3-0.8The [facility] LimaComment on above:Performed By: #### MG, CMP #### [facility] [address] [place] [address] Dr. Doreen Ruizocytes/100 WBC (Bld)8.3 %Normal1.7-12.0The [facility] Comment on above:Performed By: #### MG, CMP #### [facility] [address] [place] [address] Dr. Doreen Brar #3.9 103/ulNormal1.4-6.5The [facility] LimaComment on above:Performed By: #### MG, CMP #### [facility] [address] [place] [address] Dr. Doreen Gomezophils/100 WBC (Bld)58.3 %Ssnocy12.0-75.0The [facility] LimaComment on above:Performed By: #### MG, CMP #### [facility] [address] [place] [address] Dr. Doreen Basilio mean volume (Bld) [Entitic vol]10.4 fLNormal9.5-13.5The [facility] LimaComment on above:Performed By: #### MG, CMP #### [facility] [address] [address] [address] Doreen BetancourtPLT213 103/vuKprxmb912-021Vsz [facility] LimaComment on above: Performed By: #### MG, CMP #### [facility] [address] [address] [address] Doreen BetancourtRBC3.48 106/ulCritically low4.20-5.40The [facility] LimaComment on above:Performed By: #### MG, CMP #### [facility] [address] [place] [address] Dr. Dorene BetancourtWBC6.8 103/ulNormal4.0-11.0The [facility] LimaComment on above: Performed By: #### MG, CMP #### [facility] [address] [place] [address] Dr. Doreen BetancourtPROF CHEM 8 (BAS METB)on [id number] gap [Moles/Vol]7.3 mmol/LNormalThe [facility] LimaComment on above:Performed By: #### MG, CMP #### [facility] [address] [place] [address] Dr. Doreen eBtancourtCalcium [Mass/Vol]8.8 mg/dLNormal8.5-10.1The [facility] Comment on above:Performed By: #### MG, CMP #### [facility] [address] [place] [address] Dr. Doreen BetancourtChloride [Moles/Vol]105 mmol/PMqpqmt63-069Qis [facility] Comment on above:Performed By: #### MG, CMP #### [facility] [address] [place] [address] Dr. Doreen BetancourtCO2 [Moles/Vol]27.8 mmol/HOvhpyt08.0-32.0The [facility] Comment on above:Performed By: #### MG, CMP #### [facility] [address] [place] [address] Dr. Doreen BetancourtCreatinine [Mass/Vol]0.57 mg/dLNormal0.55-1.02The [facility] LimaComment on above:Performed By: #### MG, CMP #### [facility] [address] [address] [address] Doreen GregoryGFR-AF EGYPTIAN>60Normal>=60The [facility] LimaComment on above:Performed By: #### MG, CMP #### [facility] [address] [address] [address] Doreen GregoryGFR-NON AF EGYPTIAN>60Normal>=60The [facility] on above:Performed By: #### MG, CMP #### [facility] [address] [address] [address] Doreen BetancourtGlucose [Mass/Vol]93 mg/bQDalpbo47-223HxhOhio [facility] Surgical [facility] Comment on above:Performed By: #### MG, CMP #### [facility] [address] [address] [address] Doreen BetancourtPotassium [Moles/Vol]4.1 mmol/LNormal3.5-5.1[facility] Comment on above:Performed By: #### MG, CMP #### [facility] [address] [address] [address] Doreen BetancourtSodium [Moles/Vol]136 mmol/DRijdfv836-269Paa [facility] Comment on above:Performed By: #### MG, CMP #### [facility] [address] [address] [address] Doreen BetancourtUrea nitrogen [Mass/Vol]5.0 mg/dLCritically low7.0-18.0The [facility] LimaComment on above:Performed By: #### MG, CMP #### [facility] [address] [place] [address] Dr. Doreen Copeland nitrogen/Creatinine [Mass ratio]8.8 mg/mgNormalThe [facility] LimaComment on above:Performed By: #### MG, CMP #### [facility] [address] [address] [address] Doreen BetancourtPROF CHEM 8 (BAS METB)on [id number] gap [Moles/Vol]9.6 mmol/LNormalThe [facility] LimaComment on above:Performed By: #### CVDTBH #### [facility] [address] [address] [address] Doreen BetancourtCalcium [Mass/Vol]8.8 mg/dLNormal8.5-10.1[facility] Comment on above:Performed By: #### CVDTBH #### [facility] [address] [address] [address] Doreen BetancourtChloride [Moles/Vol]101 mmol/QDfbuhu38-068Pmw [facility] Comment on above:Performed By: #### CVDTBH #### [facility] [address] [place] [address] Dr. Doreen BetancourtCO2 [Moles/Vol]26.8 mmol/JAbgbvc33.0-32.0[facility] Comment on above:Performed By: #### CVDTBH #### [facility] [address] [place] [address] Dr. Doreen BetancourtCreatinine [Mass/Vol]0.53 mg/dLCritically low0.55-1.02The [facility] LimaComment on above:Performed By: #### CVDTBH #### [facility] [address] [place] [address] Dr. Doreen GregoryGFR-AF EGYPTIAN>60Normal>=60The [facility] LimaComment on above:Performed By: #### CVDTBH #### [facility] [address] [place] [address] Dr. Doreen GregoryGFR-NON AF EGYPTIAN>60Normal>=60The [facility] LimaComment on above:Performed By: #### CVDTBH #### [facility] [address] [place] [address] Dr. Doreen BetancourtGlucose [Mass/Vol]122 mg/dLCritically bmoi65-079Sta [facility] LimaComment on above:Performed By: #### CVDTBH #### [facility] [address] [place] [address] Dr. Doreen BetancourtPotassium [Moles/Vol]3.4 mmol/LCritically low3.5-5.1The [facility] LimaComment on above:Performed By: #### CVDTBH #### [facility] [address] [place] [address] Dr. Doreen Maderadium [Moles/Vol]134 mmol/LCritically xbv241-897Wyt [facility] LimaComment on above:Performed By: #### CVDTBH #### [facility] [address] [place] [address] Dr. Doreen Copeland nitrogen [Mass/Vol]6.0 mg/dLCritically low7.0-18.0The [facility] LimaComment on above:Performed By: #### CVDTBH #### [facility] [address] [place] [address] Dr. Doreen Copeland nitrogen/Creatinine [Mass ratio]11.3 mg/mgNormalThe [facility] LimaComment on above:Performed By: #### CVDTBH #### [facility] [address] [place] [address] Dr. Doreen Keller AUTO DIFFon [id number] #0.0 103/ulNormal0.0-0.1The [facility] LimaComment on above:Performed By: #### MG, CMP #### [facility] [address] [place] [address] Dr. Doreen BetancourtBasophils/100 WBC (Bld)0.1 %Critically low0.2-2.0The [facility] LimaComment on above:Performed By: #### MG, CMP #### [facility] [address] [place] [address] Dr. Doreen Everett #0.0 103/ulNormal0.0-0.7The [facility]Comsur[facility] on above: Performed By: #### MG, CMP #### [facility] [address] [place] [address] Dr. Doreen Gregoryosinophils/100 WBC (Bld)0.0 %Critically low0.9-7.0The [facility] LimaComment on above:Performed By: #### MG, CMP #### [facility] [address] [place] [address] Dr. Doreen Gregoryrythrocyte distribution width (RBC) [Ratio]13.0 %Xepotz57.0-15.0 [facility] on above:Performed By: #### MG, CMP #### [facility] [address] [place] [address] Dr. Doreen BetancourtHematocrit (Bld) [Volume fraction]35.6 %Critically low36.0-48.0 The [facility]Com[facility] on above:Performed By: #### MG, CMP #### [facility] [address] [place] [address] Dr. Doreen BetancourtHemoglobin (Bld) [Mass/Vol]11.5 g/dLCritically low12.0-16.0[facility] on above:Performed By: #### MG, CMP #### [facility] [address] [place] [address] Dr. Doreen Shepherd #0.02 10e3/ulNormal0.00-0.03The [facility] on above:Performed By: #### MG, CMP #### [facility] [address] [place] [address] Dr. Doreen Shepherd %0.2 %Normal0.0-0.5The [facility] on above: Performed By: #### MG, CMP #### [facility] [address] [place] [address] Dr. Doreen Kaiser #1.3 103/ulNormal1.2-3.8The [facility] on above:Performed By: #### MG, CMP #### [facility] [address] [place] [address] Dr. Doreen Camachohocytes/100 WBC (Bld)12.4 %Critically low20.5-60.0[facility] on above:Performed By: #### MG, CMP #### [facility] [address] [place] [address] Dr. Doreen DixonUAL DIFF REQNONormalThe Dee HospitalComment on above: Performed By: #### MG, CMP #### [facility] [address] [place] [address] Dr. Doreen Stearns (RBC) [Entitic mass]29.9 hgCshhes12.7-34.0The [facility] LimaComment on above:Performed By: #### MG, CMP #### [facility] [address] [place] [address] Dr. Doreen Stearns (RBC) [Mass/Vol]32.3 g/gVWdpsyk48.9-35.2The [facility] LimaComment on above:Performed By: #### MG, CMP #### [facility] [address] [place] [address] Dr. Doreen Alejo (RBC) [Entitic vol]92.7 xEYkrvcs14.0-99.0The [facility] LimaComment on above:Performed By: #### MG, CMP #### [facility] [address] [place] [address] Dr. Doreen Cheema #0.9 103/ulCritically high0.3-0.8ThOur [facility] Comment on above:Performed By: #### MG, CMP #### [facility] [address] [place] [address] Dr. Doreen Ruizocytes/100 WBC (Bld)8.8 %Normal1.7-12.0[facility] Comment on above:Performed By: #### MG, CMP #### [facility] [address] [place] [address] Dr. Doreen Brar #8.3 103/ulCritically high1.4-6.5ThOur [facility] Comment on above:Performed By: #### MG, CMP #### [facility] [address] [place] [address] Dr. Doreen Gomezophils/100 WBC (Bld)78.5 %Critically high43.0-75.0[facility] HospitalComment on above:Performed By: #### MG, CMP #### [facility] [address] [place], [place] [id number] Dr. Doreen Goldsteinlet mean volume (Bld) [Entitic vol]10.6 fLNormal9.5-13.5The [facility] LimaComment on above:Performed By: #### MG, CMP #### [facility] [address] [place] [address] Dr. Doreen BetancourtPLT218 103/dzKzpycg190-346Cye [facility] LimaComment on above: Performed By: #### MG, CMP #### [facility] [address] [place] [address] Dr. Doreen BetancourtRBC3.84 106/ulCritically low4.20-5.40The [facility] LimaComment on above:Performed By: #### MG, CMP #### [facility] [address] [place] [address] Dr. Doreen BetancourtWBC10.6 103/ulNormal4.0-11.0The [facility] LimaComment on above:Performed By: #### MG, CMP #### [facility] [address] [place] [address] Dr. Doreen BetancourtPROF CHEM 8 (BAS METB)on [id number] gap [Moles/Vol]9.4 mmol/LNormalThe [facility] LimaComment on above:Performed By: #### MG, CMP #### [facility] [address] [place] [address] Dr. Doreen BetancourtCalcium [Mass/Vol]8.4 mg/dLCritically low8.5-10.1The [facility] LimaComment on above:Performed By: #### MG, CMP #### [facility] [address] [place] [address] Dr. Doreen BetancourtChloride [Moles/Vol]105 mmol/SRmchsg44-052Wyp [facility] Comment on above:Performed By: #### MG, CMP #### [facility] [address] [place] [address] Dr. Doreen BetancourtCO2 [Moles/Vol]25.1 mmol/RRrfrlg64.0-32.0The [facility] Comment on above:Performed By: #### MG, CMP #### [facility] [address] [address] [address] Doreen BetancourtCreatinine [Mass/Vol]0.50 mg/dLCritically low0.55-1.02The [facility] LimaComment on above:Performed By: #### MG, CMP #### [facility] [address] [address] [address] Doreen GregoryGFR-AF EGYPTIAN>60Normal>=60The [facility] LimaComment on above:Performed By: #### MG, CMP #### [facility] [address] [address] [address] Doreen GregoryGFR-NON AF EGYPTIAN>60Normal>=60The [facility] LimaComment on above:Performed By: #### MG, CMP #### [facility] [address] [address] [address] Doreen BetancourtGlucose [Mass/Vol]114 mg/dLCritically xiyg03-278Qwg [facility] LimaComment on above:Performed By: #### MG, CMP #### [facility] [address] [address] [address] Doreen BetancourtPotassium [Moles/Vol]3.5 mmol/LNormal3.5-5.1[facility] Comment on above:Performed By: #### MG, CMP #### [facility] [address] [address] [address] Doreen BetancourtSodium [Moles/Vol]136 mmol/CRjvifo618-061Smq [facility] Comment on above:Performed By: #### MG, CMP #### [facility] [address] [address] [address] Doreen BetancourtUrea nitrogen [Mass/Vol]6.0 mg/dLCritically low7.0-18.0The [facility] Centerment on above:Performed By: #### MG, CMP #### [facility] [address] [address] [address] Doreen BetancourtUrea nitrogen/Creatinine [Mass ratio]12.0 mg/mgNoalThe [facility] LimaComment on above:Performed By: #### MG, CMP #### [facility] [address] [place] [address] Dr. Doreen Keller AUTO DIFFon [id number] #0.1 103/ulNormal0.0-0.1The [facility] LimaComment on above:Performed By: #### MG, CMP #### [facility] [address] [place] [address] Dr. Doreen BetancourtBasophils/100 WBC (Bld)0.8 %Normal0.2-2.0The [facility] Comment on above:Performed By: #### MG, CMP #### [facility] [address] [place] [address] Dr. Doreen Everett #0.1 103/ulNormal0.0-0.7The [facility] LimaComment on above: Performed By: #### MG, CMP #### [facility] [address] [place] [address] Dr. Doreen Gregoryosinophils/100 WBC (Bld)1.8 %Normal0.9-7.0The [facility] Comment on above:Performed By: #### MG, CMP #### [facility] [address] [place] [address] Dr. Doreen Gregoryrythrocyte distribution width (RBC) [Ratio]13.0 %Maauun29.0-15.0 The [facility] LimaComment on above:Performed By: #### MG, CMP #### [facility] [address] [place] [address] Dr. Doreen BetancourtHematocrit (Bld) [Volume fraction]42.1 %Vtvfdb48.0-48.0The [facility] LimaComment on above:Performed By: #### MG, CMP #### [facility] [address] [place] [address] Dr. Doreen BetancourtHemoglobin (Bld) [Mass/Vol]13.4 g/rJTxmawv22.0-16.0The [facility] LimaComment on above:Performed By: #### MG, CMP #### [facility] [address] [address] [address] Doreen Shepherd #0.02 10e3/ulNormal0.00-0.03The [facility] on above:Performed By: #### MG, CMP #### [facility] [address] [place] [address] Dr. Doreen Shepherd %0.3 %Normal0.0-0.5The [facility]Com[facility] on above: Performed By: #### MG, CMP #### [facility] [address] [place] [address] Dr. Doreen Kaiser #2.1 103/ulNormal1.2-3.8The [facility] LimaComment on above:Performed By: #### MG, CMP #### [facility] [address] [place] [address] Dr. Doreen Camachohocytes/100 WBC (Bld)31.6 %Oautld43.5-60.0The [facility] on above:Performed By: #### MG, CMP #### [facility] [address] [place] [address] Dr. Doreen DixonUAL DIFF REQNONormalThe [facility]Comsur[facility] on above: Performed By: #### MG, CMP #### [facility] [address] [place] [address] Dr. Doreen Stearns (RBC) [Entitic mass]30.2 rfIysdsv86.7-34.0The [facility] on above:Performed By: #### MG, CMP #### [facility] [address] [place] [address] Dr. Doreen Stearns (RBC) [Mass/Vol]31.8 g/cKThysxg40.9-35.2The [facility] on above:Performed By: #### MG, CMP #### [facility] [address] [place] [address] Dr. Doreen Stearns (RBC) [Entitic vol]95.0 sTXkoygz69.0-99.0The [facility] HospitalComment on above:Performed By: #### MG, CMP #### [facility] [address] [place] [address] Dr. Doreen Cheema #0.4 103/ulNormal0.3-0.8The [facility]imaComment on above:Performed By: #### MG, CMP #### [facility] [address] [place] [address] Dr. Doreen Ruizocytes/100 WBC (Bld)6.2 %Normal1.7-12.0The [facility] Comment on above:Performed By: #### MG, CMP #### [facility] [address] [place] [address] Dr. Doreen Brar #3.9 103/ulNormal1.4-6.5The [facility] LimaComment on above:Performed By: #### MG, CMP #### [facility] [address] [place] [address] Dr. Doreen Wrenutrophils/100 WBC (Bld)59.3 %Xcjmix29.0-75.0The [facility] LimaComment on above:Performed By: #### MG, CMP #### [facility] [address] [place] [address] Dr. Doreen Basilio mean volume (Bld) [Entitic vol]10.2 fLNormal9.5-13.5The [facility] LimaComment on above:Performed By: #### MG, CMP #### [facility] [address] [place] [address] Dr. Doreen BetancourtPLT276 103/utOzefxr161-357Gfo [facility] LimaComment on above: Performed By: #### MG, CMP #### [facility] [address] [place] [address] Dr. Doreen BetancourtRBC4.43 106/ulNormal4.20-5.40The [facility] LimaComment on above:Performed By: #### MG, CMP #### [facility] [address] [place] [address] Dr. Doreen BetancourtWBC6.6 103/ulNormal4.0-11.0The [facility]ment on above: Performed By: #### MG, CMP #### [facility] [address] [place] [address] Dr. Doreen BetancourtCovicale-19 PCR ([facility])on [id number]-CoV-2 (COVID-19) RNA MARIVEL+probe Ql (Unsp spec)Not detectedNormalNOT DETECTEDThe [facility] Comment on above:Result Comment: When diagnostic testing [...] [employer] and [employer]'s declaration that [...] be used).Performed By: #### MG, CMP #### [facility] [address] [place] [address] Dr. Doreen BetancourtTYPE AND SCREENon [id number] AND SCREENNegativeNormalThe [facility]Com[facility] on above:Performed By: #### MG, CMP #### [facility] [address] [place] [address] Dr. Doreen Cobian 55-82-7619WKO1.9 ng/mLCritically high0.0-4.7The [facility] on above:Result Comment: Nonsmokers <3.9 Smokers <5.6 . [employer] Electrochemiluminescence Immunoassay (ECLIA) . Values obtained with different assay methods or kits cannot be used interchangeably. Results cannot be interpreted as absolute evidence of the presence or absence of malignant disease.Performed By: #### MG, CMP #### [facility] [address] [address] [address] Doreen BetancourtPROF 14(COMP METB)on [id number] [Mass/Vol]3.6 g/dLNormal 3.4-5.0The [facility] LimaComment on above:Performed By: #### MG, CMP #### [facility] [address] [address] [address] Doreen BetancourtAlbumin/Globulin [Mass ratio]1.1 {ratio}NormalThe [facility] LimaComment on above:Performed By: #### MG, CMP #### [facility] [address] [address] [address] Doreen CarolinaP [Catalytic activity/Vol]76 U/SDdbrxn32-383Pft [facility] LimaComment on above:Performed By: #### MG, CMP #### [facility] [address] [place] [address] Dr. Doreen CarolinaT [Catalytic activity/Vol]18 U/LImxlix74-63Ktm [facility]imaComment on above:Performed By: #### MG, CMP #### [facility] [address] [address] [address] Doreen Cifuentes gap [Moles/Vol]12.7 mmol/LNormalThe [facility] Comment on above:Performed By: #### MG, CMP #### [facility] [address] [address] [address] Doreen BetancourtAST [Catalytic activity/Vol]15 U/HZtxcsf47-63Boy [facility] LimaComment on above:Performed By: #### MG, CMP #### [facility] [address] [address] [address] Doreen BetancourtBilirubin [Mass/Vol]0.3 mg/dLNormal0.2-1.0The [facility] Comment on above:Performed By: #### MG, CMP #### [facility] [address] [address] [address] Doreen BetancourtCalcium [Mass/Vol]8.8 mg/dLNormal8.5-10.1The [facility] Comment on above:Performed By: #### MG, CMP #### [facility] [address] [address] [address] Doreen BetancourtChloride [Moles/Vol]104 mmol/DIpztek55-074Zoe [facility] Comment on above:Performed By: #### MG, CMP #### [facility] [address] [address] [address] Doreen BetancourtCO2 [Moles/Vol]25.5 mmol/LBcatoy68.0-32.0The [facility] Comment on above:Performed By: #### MG, CMP #### [facility] [address] [address] [address] Doreen BetancourtCreatinine [Mass/Vol]0.61 mg/dLNormal0.55-1.02[facility] HospitalComment on above:Performed By: #### MG, CMP #### [facility] [address] [address] [address] Doreen GregoryGFR-AF EGYPTIAN>60Normal>=60The [facility] LimaComment on above:Performed By: #### MG, CMP #### [facility] [address] [address] [address] Doreen GregoryGFR-NON AF EGYPTIAN>60Normal>=60The [facility]imaComment on above:Performed By: #### MG, CMP #### [facility] [address] [address] [address] Doreen BetancourtGlobulin (S) [Mass/Vol]3.3 g/dLNormalThe [facility] LimaComment on above:Performed By: #### MG, CMP #### [facility] [address] [address] [address] Doreen BetancourtGlucose [Mass/Vol]93 mg/aWPbwgds20-156Pfn [facility] Comment on above:Performed By: #### MG, CMP #### [facility] [address] [address] [address] Doreen BetancourtPotassium [Moles/Vol]4.2 mmol/LNormal3.5-5.1The [facility] Comment on above:Performed By: #### MG, CMP #### [facility] [address] [address] [address] Doreen BetancourtProtein [Mass/Vol]6.9 g/dLNormal6.4-8.2[facility] Comment on above:Performed By: #### MG, CMP #### [facility] [address] [place] [address] Dr. Doreen BetancourtSodium [Moles/Vol]138 mmol/MThgooz865-531Vux [facility] Comment on above:Performed By: #### MG, CMP #### [facility] [address] [place] [address] Dr. Doreen BetancourtUrea nitrogen [Mass/Vol]17.0 mg/dLNormal7.0-18.0[facility] HospitalComment on above:Performed By: #### MG, CMP #### [facility] [address] [place] [address] Dr. Doreen Copeland nitrogen/Creatinine [Mass ratio]27.9 mg/mgNoalThOur Lady of [facility] Hospital - AndersonComment on above:Performed By: #### MG, CMP #### [facility] [address] [place] [address] Dr. Doreen BetancourtCT ABD/PELV W CONon [id number] ABD/PELV W CONEXAMINATION: CT ABD/PELV W CON [...] Electronically authenticated by: NEDA COULTER Date: 2022-03-27 17:13NoBarberton [facility] HospitalCovid-19 PCR (CVDTBH)on [id number]-CoV-2 (COVID-19) RNA MARIVEL+probe Ql (Unsp spec)Not detectedNormalNOT DETECTEDThe [facility] Comment on above:Result Comment: This test is not yet approved or cleared by the [place] FDA. When there are no FDA-approved or cleared tests available, and other criteria are met, FDA can make tests available under an emergency access mechanism called an Emergency Use Authorization (EUA). The EUA for this test is supported by the [place] of Health and Human Service's (HHS's) declaration [...] with SARS-CoV-2.Performed By: #### MG, CMP #### [facility] [address] [place] [address] Dr. Doreen Buchanan ABD/PELVelia Munoz [id number] ABD/PELV W CONEXAMINATION: CT ABD/PELV W CON [...] Electronically authenticated by: NEDA COULTER Date: 2022-01-09 17:[address] [place], [place] [address]Coding Summaryon [id number] SummaryHTMLBase 64 GacbkbaaNLq0gFi+[id number] biAv [file] bGF (more content not included)...[facility] Clinical Summaryon [id number] [facility] [address] [place], [place] [address] Clinical Summary PERSON INFORMATION Name: MARYSOL JACOBSON Age: 56 Years Sex: FEMALE : 1965 MRN: Acct#: Visit Reason: Wrist laceration; LEFT WRIST LAC Arrival: 04/21/2021 17:52:39 Discharge: 04/21/2021 18:47:00 LOS: 000 00:55 Check In: 04/21/2021 17:52:39 Checkout: 04/21/2021 18:47:00 Address: [address] [place] [id number] PCP: Sandro Chin MD PROVIDER INFORMATION Provider [...] PATIENT EDUCATION INFORMATION Instructions: Laceration Care, Adult, Kkkp-ur-Hsjv Follow-Up: With: Address: When: Sandro Chin [address] [place], [place] [id number] [facility] (1) Within 3 to 5 days Comments: Please follow-up with Dr. Chin, call the office schedule an appointment to be seen in 3 to 5 days for wound check, please take your Augmentin as prescribed, keep the wound clean, apply bacitracin and keep it covered, have sutures removed in 10 to 12 days from today, take cgbt-tan-rjtwlfm pain medication as needed, and return back to the urgent care center for any worsening symptoms, concerns, orcomplications. DIAGNOSIS: 1:Laceration of left wrist Patient Understands: Yes - Patient/family/caregiver verbalizes understanding of instructions given Comment:[facility] Patient Summaryon [id number] Patient Summary [facility] Care [address] [place], [place] [address] PATIENT DISCHARGE INSTRUCTIONS Patient Information Name: MARYSOL JACOBSON Age: 56 Years Date of : 1965 Reason For Visit: Wrist laceration; LEFT WRIST LAC Arrival Time: 04/21/2021 17:52:39 Primary Care Physician: Sandro Chni MD Attending Physician: Leo Art PA-C Comment: Patient Education With: Address: When: Sandro Chin [facility] [facility], [place] [address] [facility] (1) Within 3 to 5 days Comments: Please follow-up with Dr. Chin, call the office schedule an appointment to be seen in 3 to 5 days for wound check, please take your Augmentin as prescribed, keep the wound clean, apply bacitracin and keep it covered, have sutures removed in 10 to 12 days from today, take ndnx-yfi-xcizgch pain medication as needed, and return back [...] needed: ? Soap. ? Water. ? Hand insurance representative. ? Bandage (dressing). ? Antibiotic ointment. ? Clean towel. How to take care of your cut Wash your hands with soap and water before touching your wound or changing your bandage. If soap and water are not available, use hand insurance representative. If your doctor used stitches or yuridia: [...] off the skin. General instructions ? Take zski-tny-ddsllmy and prescription medicines only as told by [...] told by your doctor (more content not included)...[facility] Note - Nurseon [id number] Note - Nursesutured wound cleaned, bacitracin applied and a bandage, pt tolerated well [Electronically Signed on: 04/21/2021 18:57 EDT] Lauren Boyer [Verified on: 04/21/2021 18:57 EDT] Andrea BoyerAdena Pike [facility] CenterUr[facility] Care Rec[facility] 52-26-1037[facility] ? Urgent Care [address] [place] [address] PATIENT DISCHARGE INSTRUCTIONS Patient Information Name: MARYSOL JACOBSON Age: 56 Years Date of : 1965 Reason For Visit: Wrist laceration; LEFT WRIST LAC Arrival Time: 04/21/2021 17:52:39 Primary Care Physician: Sandro Chin MD Attending Physician: Leo Art PA-C Comment: Visit Diagnosis: Diagnoses This Visit Laceration of left wrist (S61.512A) Wrist laceration ([id number]) If you received any narcotics, sedation, or [...] legal documents With: Address: When: Sandro Chin [facility] [facility], [place] [address] Business (1) Within 3 to 5 days Comments: Please follow-up with Dr. Chin, call the office schedule an appointment to be seen in 3 to 5 days for wound check, please take your Augmentin as prescribed, keep the wound clean, apply bacitracin and keep it covered, have sutures removed in 10 to 12 days from today, take fred-piq-oawhwfd pain medication as needed, and return back to the urgent care center for any worsening symptoms, concerns, orcomplications. Medication Information: The exam and treatment you received today in the [facility] were for an urgent problem and are not intended as complete care. It is important for you to follow up with a doctor, nurse practitioner, or physician?s assistant boiler operator for ongoing care. If your symptoms become [...] so we can reach you if necessary. [facility] has provided you with a complete list of medications post discharge. Please inform your help desk specialist/provider of your visit and for further instruction on these medications. Any specific questions regarding your chronic medications and dosages should be discussed with your primary care physician(s) and/or pharmacist. New Medications [facility] [address], [place] [id number], [phone] amoxicillin-clavulanate (Augmentin 875 mg-125 mg oral tablet) [...] needed: ? Soap. ? Water. ? Hand insurance representative. ? Bandage (dressing). ? Antibiotic ointment. ? Clean towel. How to take care of your cut Wash your hands with soap and water before touching your wound or changing your bandage. If soap and water ar (more content not included)...[facility] Vital Signs Date TimeVital SignValuePerforming DzvurczphThjklpqx01-60-3112 11:36-0400Body vawyzmpmgad28.1 [degF]Sandro Chin MD Work Phone: [facility]10-30-2025 11:36-0400 Body .21 kgSandro Chin MD Work Phone: 1(582)[address]10-30-2025 11:36-0400 Diastolic blood wlnngisd62 mm[Hg]Sandro Chin MD Work Phone: 1(690)[address] [place], [place] [address]10-30-2025 11:36-0400 Heart rate71 /Mayur Chin MD Work Phone: 1(731)[address] [place], [place] [address]10-30-2025 11:36-0400 Respiratory rate18 /Mayur Chin MD Work Phone: 1(736)[address] [place], [place] [address]10-30-2025 11:36-0400 SaO2% (BldA) [Mass fraction]99 %Sandro Chin MD Work Phone: 1(132)[address] [place], [place] [address]10-30-2025 11:36-0400 Systolic blood jgaxykpi087 mm[Hg]Sandro Chin MD Work Phone: 1(895)[address] [place], [place] [address]09-29-2025 13:13-0400 Body ihealjwznhq89.7 [degF]Sandro Chin MD Work Phone: 1(513)[address] [place], [place] [address]09-29-2025 13:13-0400 Body ibdksv97.57 kgSandro Chin MD Work Phone: 1(343)[address] [place], [place] [address]09-29-2025 13:13-0400 Diastolic blood fkunimbq49 mm[Hg]Sandro Chin MD Work Phone: 1(082)[address] [place], [place] [address]09-29-2025 13:13-0400 Heart rate69 /Mayur Chin MD Work Phone: 1(889)[address] [place], [place] [address]09-29-2025 13:13-0400 Respiratory rate16 /Mayur Chin MD Work Phone: 1(566)[address] [place], [place] [address]09-29-2025 13:13-0400 SaO2% (BldA) [Mass fraction]98 %Sandro Chin MD Work Phone: 1(921)[address] [place], [place] [address]09-29-2025 13:13-0400 Systolic blood lxikxfcb689 mm[Hg]Sandro Chin MD Work Phone: 1(511)[address]23 [address]09-15-2025 13:10-0400 Body .93 kgSandro Chin MD Work Phone: 1(543)13823 [address]09-15-2025 13:10-0400 Diastolic blood upibzghj74 mm[Hg]Sandro Chin MD Work Phone: 1(302)[address]09-15-2025 13:10-0400 Heart rate69 /Mayur Chin MD Work Phone: 1(358)71223 [address]09-15-2025 13:10-0400 Respiratory rate20 /Mayur Chin MD Work Phone: 1(302)32223 [address]09-15-2025 13:10-0400 SaO2% (BldA) [Mass fraction]99 %Sandro Chin MD Work Phone: 1(968)[address]09-15-2025 13:10-0400 Systolic blood sqwphilw823 mm[Hg]Sandro Chin MD Work Phone: 1(231)[address]07-29-2025 09:55-0400 Diastolic blood lurqnwsp26 mm[Hg]Sandro Chin MD Work Phone: 1(196)415[address]07-29-2025 09:55-0400 Heart rate60 /Mayur Chin MD Work Phone: 1(033)32423 [address]07-29-2025 09:55-0400 Respiratory rate16 /Mayur Chin MD Work Phone: 1(443)[address]07-29-2025 09:55-0400 SaO2% (BldA) [Mass fraction]98 %Sandro Chin MD Work Phone: 1(204)[address]07-29-2025 09:55-0400 Systolic blood wqlfarxb09 mm[Hg]Sandro Chin MD Work Phone: 1(946)[address]07-29-2025 08:44-0400 Body .56 cmSandro Chin MD Work Phone: [facility]07-29-2025 08:44-0400 Body cxjsza01.02 kgSandro Chin MD Work Phone: [facility]06-17-2025 08:32-0400 Body mass index (BMI) [Ratio]27.29 kg/w7PexhyzConstantino Martinez MD Work Phone: [facility]Vimrekhzrk76-56-4549 08:32-0400Body rjydvl64.12 kgConstantino Martinez MD Work Phone: [facility] HospitalKdfggbffpa95-50-5092 08:32-0400Diastolic blood vdooqxra619 mm[Hg]Constantino Martinez MD Work Phone: [facility] HospitalOnhiggshui87-70-4493 08:32-0400Heart rate68 /min Constantino Martinez MD Work Phone: [facility] HospitalVxvgyofjue62-64-1882 08:32-0400Systolic blood uzntdleo549 mm[Hg]Constantino Martinez MD Work Phone: [facility] HospitalJvtldoyrmh74-38-4026 10:41-0400Body zneick201.56 cmSandro Chin MD Work Phone: [facility]06-16-2025 10:41-0400 Body mass index (BMI) [Ratio]27.6 kg/a5LwojmsSandro Chin MD Work Phone: [facility]06-16-2025 10:41-0400 Body .02 Wil Chin MD Work Phone: [facility]06-16-2025 10:41-0400 Diastolic blood illbykyc37 mm[Hg]Sandro Chin MD Work Phone: [facility]06-16-2025 10:41-0400 Heart rate64 /minSandro Chin MD Work Phone: [facility]06-16-2025 10:41-0400 Systolic blood cqdoopqf311 mm[Hg]Sandro Chin MD Work Phone: [facility]06-10-2025 09:33-0400 Body zvkydg081.56 cmBrown [facility]06-10-2025 09:33-0400Body mass index (BMI) [Ratio]27.6 kg/e5AeicqygzjBrown Memorial Hospital06-10-2025 09:33-0400Body rrghmo04.08 kg[facility]06-10-2025 09:33-0400Diastolic blood gbwusxnf13 mm[Hg][facility] 12-14-2024 09:33-0400Heart rate58 /minBrown [facility] Hospital 12-14-2024 09:33-0400Systolic blood jmjrclev394 mm[Hg][facility]03-03-2025 12:58-0500Body .56 cmClint Alejandros DO Work Phone: [facility]03-03-2025 12:58-0500 Body mass index (BMI) [Ratio]28.8 kg/b8ApvfjasClint Alejandros DO Work Phone: [facility]03-03-2025 12:58-0500 Body .5 [degF]Clint Jean Baptiste DO Work Phone: [facility]03-03-2025 12:58-0500 Body ezyfpr87.2 kgSherwinarleth Alejandros DO Work Phone: [facility]03-03-2025 12:58-0500 Diastolic blood zbikfmbs65 mm[Hg]Clint Jean Baptiste DO Work Phone: [facility]03-03-2025 12:58-0500 Heart rate58 /minLeroybowen Marcillis DO Work Phone: [facility]03-03-2025 12:58-0500 Respiratory rate16 /minSherwinarleth Monicoillis DO Work Phone: [facility]03-03-2025 12:58-0500 SaO2% (BldA) [Mass fraction]99 %Clint Jean Baptiste DO Work Phone: [facility]03-03-2025 12:58-0500 Systolic blood mm[Hg]Clint Jean Baptiste DO Work Phone: 1(301)[address]12-26-2024 10:59-0500 Body zvcgij046.56 cmMichaebowen Marcillis DO Work Phone: 1(145)461-[address] [place], [place] [address]12-26-2024 10:59-0500 Body mass index (BMI) [Ratio]28.8 kg/r9Revxbrk Grillis DO Work Phone: 1(984)57031 [address]12-26-2024 10:59-0500 Body .2 kgMicarleth Marcillis DO Work Phone: 1(449)83431 [address]12-26-2024 10:59-0500 Diastolic blood rvgqcloa91 mm[Hg]Clint Jean Baptiste DO Work Phone: 1(824)51631 [address]12-26-2024 10:59-0500 Heart rate64 /minMicarleth Alejandros DO Work Phone: 1(238)913-[address] [place], [place] [address]12-26-2024 10:59-0500 Systolic blood mm[Hg]Clint Jean Baptiste DO Work Phone: 1(516)963[facility]72[facility]09-19-2024 11:29-0400 Body yhfwqe249.6 cmMasha Howard STAGE PRODUCER-AUTOMOBILE SPRING REPAIRER Work Phone: [facility]09-19-2024 11:29-0400Body mass index (BMI) [Ratio]27.5 kg/h5PcqbkyaMasha Howard STAGE PRODUCER-AUTOMOBILE SPRING REPAIRER Work Phone: [facility]09-19-2024 11:29-0400Body .67 kgMasha Howard STAGE PRODUCER-AUTOMOBILE SPRING REPAIRER Work Phone: [facility]09-19-2024 11:29-0400Diastolic blood mm[Hg]Masha Howard STAGE PRODUCER-AUTOMOBILE SPRING REPAIRER Work Phone: [facility]09-19-2024 11:29-0400Heart rate 54 /minMasha Howard STAGE PRODUCER-AUTOMOBILE SPRING REPAIRER Work Phone: [facility]09-19-2024 11:29040Systolic blood fshixstj640 mm[Hg]Masha Howard STAGE PRODUCER-AUTOMOBILE SPRING REPAIRER Work Phone: [facility]09-09-2024 13:50-0400Body .6 cmMichael Grillis DO Work Phone: [facility]09-09-2024 13:50-0400Body mass index (BMI) [Ratio]27.46 kg/d0Dxotzdk Grillis DO Work Phone: [facility]09-09-2024 13:50-0400Body .58 kgMichael Grillis DO Work Phone: [facility]08-28-2024 10:26-0400Body vivfmz699.6 cmMichael Grillis DO Work Phone: [facility]08-28-2024 10:26-0400Body mass index (BMI) [Ratio]27.46 kg/z5Zquffyo Grillis DO Work Phone: [facility]08-28-2024 10:26-0400Body pbkvxo25.58 kgMichael Grillis DO Work Phone: [facility]07-15-2024 11:22-0400Body .56 cmDO Clint Alejandros Work Phone: 1([phone])[phone]07-15-2024 11:22-0400 Body mass index (BMI) [Ratio]28.8 kg/m2DO Clint Marcillis Work Phone: 1(953)087-[address] [place], [place] [address]907-15-2024 11:22-0400 Body uxgowgqhahk69 [degF]DO Clint Alejandros Work Phone: 1(785)166-19[facility]07-15-2024 11:22-0400 Body wgyrcd68.2 kgDO Clint Alejandros Work Phone: 1(858)07[address]07-15-2024 11:22-0400 Diastolic blood lireigqm73 mm[Hg]DO Clint Alejandros Work Phone: 1(069)32431 [address]07-15-2024 11:22-0400 Heart rate52 /Chiqui Alejandros Work Phone: 1(571)49331 [address]07-15-2024 11:22-0400 Respiratory rate18 /MagdalenaO Clint Alejandros Work Phone: 1(176)9[address]07-15-2024 11:22-0400 SaO2% (BldA) [Mass fraction]99 %DO Clint Alejandros Work Phone: 1(035)20031 [address]07-15-2024 11:22-0400 Systolic blood pkovqoio977 mm[Hg]DO Clint Alejandros Work Phone: 1(720)75231 [address]05-13-2024 09:37-0400 Body .56 cmDO Clint Alejandros Work Phone: 1(565)[address]05-13-2024 09:37-0400 Body mass index (BMI) [Ratio]28.8 kg/m2DO Clint Alejandros Work Phone: 1(926)12731 [address]05-13-2024 09:37-0400 Body fcjfre73.2 kgDO Clint Alejandros Work Phone: 1(749)[address]31 [address]05-13-2024 09:37-0400 Diastolic blood zaurdfum29 mm[Hg]DO Clint Alejandros Work Phone: 1(055)82031 [address]05-13-2024 09:37-0400 Heart rate60 /Chiqui Alejandros Work Phone: 1(214)46031 [address]05-13-2024 09:37-0400 Systolic blood jzbkkaku874 mm[Hg]DO Clint Alejandros Work Phone: 1(679)49831 [address]03-22-2024 10:34-0400 Body axprsw118.56 cmDO Clint Alejandros Work Phone: 1(862)09131 [address]03-22-2024 10:34-0400 Body mass index (BMI) [Ratio]28.8 kg/m2DO Clint Alejandros Work Phone: 1(331)65631 [address]03-22-2024 10:34-0400 Body olwmud24.2 kgDO Clint Alejandros Work Phone: 1(138)01731 [address]03-22-2024 10:34-0400 Diastolic blood mm[Hg]DO Clint Alejandros Work Phone: 1(704)87231 [address]03-22-2024 10:34-0400 Heart rate63 /Chiqui Alejandros Work Phone: 1(220)25131 [address]03-22-2024 10:34-0400 Respiratory rate18 /Chiqui Alejandros Work Phone: 1(869)69631 [address]03-22-2024 10:34-0400 SaO2% (BldA) [Mass fraction]97 %DO Clint Alejandros Work Phone: 1(690)05431 [address]03-22-2024 10:34-0400 Systolic blood unynmelx863 mm[Hg]DO Clint Alejandros Work Phone: 1(445)10431 [address]12-20-2023 11:13-0500 Diastolic blood miqwhbpr47 mm[Hg]DO Clint Alejandros Work Phone: 1(840)28631 [address]12-20-2023 11:13-0500 Heart rate78 /Chiqui Alejandros Work Phone: 1(232)13531 [address]12-20-2023 11:13-0500 Respiratory rate20 /MagdalenaO Clint Alejandros Work Phone: 1(915)70331 [address]12-20-2023 11:13-0500 SaO2% (BldA) [Mass fraction]98 %DO Clint Alejandros Work Phone: 1(487)95631 [address]12-20-2023 11:13-0500 Systolic blood osywrkga516 mm[Hg]DO Clint Jean Baptiste Work Phone: [facility]11-13-2023 11:15-0500 Body qkoznc454.56 cmSandro Chin Other [employer] Other 11-13-2023 11:15-0500Body mass index (BMI) [Ratio] 28.56 kg/l2Dnqzdd Giuseppe Other [facility] [employer] Other 11-13-2023 11:15-0500Body pknqvu84.48 kgSandro Giuseppe Other [employer] Other 11-13-2023 11:15-0500Diastolic blood cnijinyv73 mm[Hg] Sandrozina Chin Other [employer] Other 11-13-2023 11:15-0500Systolic blood cayukavd232 mm[Hg] Sandro Giuseppe Other [employer] Other 09-18-2023 10:41-0400Body sgyvedgpgra61.4 [degF]DO Clint Jean Baptiste Work Phone: [facility]02-27-2023 08:36-0500 Body lbpohccutem68 [degF]DO Isaías Adamowicz II Work Phone: [facility]02-27-2023 08:36-0500 Body .6 kgDO Isaías Adamowicz II Work Phone: [facility]02-27-2023 08:36-0500 Diastolic blood iyswflrh45 mm[Hg]DO Isaías Adamowicz II Work Phone: [facility]02-27-2023 08:36-0500 Heart rate65 /minDO Isaías Adamowicz II Work Phone: [facility]02-27-2023 08:36-0500 Respiratory rate20 /minDO Isaías Adamowicz II Work Phone: [facility]02-27-2023 08:36-0500 SaO2% (BldA) [Mass fraction]99 %DO Isaías Adamowicz II Work Phone: [facility]02-27-2023 08:36-0500 Systolic blood akljaafu818 mm[Hg]DO Isaías Adamowicz II Work Phone: 1([phone])831-07[facility]02-13-2023 08:43-0500 Body hqyjsgumlam52.1 [degF]DO Isaías Adamowicz II Work Phone: 1(695)899-32[facility]02-13-2023 08:43-0500 Body kfhydy81.9 kgDO Isaías Adamowicz II Work Phone: 1(653)54[address]02-13-2023 08:43-0500 Diastolic blood mm[Hg]DO Isaías Adamowicz II Work Phone: 1(448)[phone]02-13-2023 08:43-0500 Heart rate60 /minDO Isaías Adamowicz II Work Phone: 1([phone]02-13-2023 08:43-0500 Respiratory rate20 /minDO Isaías Adamowicz II Work Phone: 1(164)[phone]02-13-2023 08:43-0500 SaO2% (BldA) [Mass fraction]100 %DO Isaías Adamowicz II Work Phone: [facility]02-13-2023 08:43-0500 Systolic blood vnlpbeoj024 mm[Hg]DO Isaías Adamowicz II Work Phone: 1([phone])[phone]01-16-2023 09:43-0500 Body gopwtkglrfb23.8 [degF]DO Isaías Adamowicz II Work Phone: [facility]01-16-2023 09:43-0500 Body pnkeoy09.7 kgDO Isaías Muñozowicz II Work Phone: [facility]01-16-2023 09:43-0500 Diastolic blood nsvajbbg52 mm[Hg]DO Isaías Adamowicz II Work Phone: [facility]01-16-2023 09:43-0500 Heart rate67 /minDO Isaías Adamowicz II Work Phone: [facility]01-16-2023 09:43-0500 Respiratory rate16 /minDO Isaías Muñozowicz II Work Phone: [facility]01-16-2023 09:43-0500 SaO2% (BldA) [Mass fraction]98 %DO Isaías Adamowicz II Work Phone: [facility]01-16-2023 09:43-0500 Systolic blood ukbdxwur256 mm[Hg]DO Isaías Adamowicz II Work Phone: [facility]12-21-2022 12:23-0500 Body qfjfzuuuund17.9 [degF]DO Clint Jean Baptiste Work Phone: [facility]12-21-2022 12:23-0500 Diastolic blood bytteroc16 mm[Hg]DO Clint Marcpapa Work Phone: [facility]12-21-2022 12:23-0500 Heart rate60 /MagdalenaO Clint Alejandros Work Phone: [facility]12-21-2022 12:23-0500 Respiratory rate18 /MagdalenaO Clint Alejandros Work Phone: [facility]12-21-2022 12:23-0500 SaO2% (BldA) [Mass fraction]97 %DO Clint Alejandros Work Phone: [facility]12-21-2022 12:23-0500 Systolic blood nguoukat330 mm[Hg]DO Clint Alejandros Work Phone: 1(813)22231 [address]12-19-2022 10:02-0500 Body qnjdso62 kgDO Clint Alejandros Work Phone: 1(851)73031 [address]12-19-2022 09:08-0500 Body nbnbqcobicz58 [degF]DO Clitn Alejandros Work Phone: 1(614)24531 [address]12-19-2022 09:08-0500 Body iaqwao77 kgDO Clint Alejandros Work Phone: 1(735)24131 [address]12-19-2022 09:08-0500 Diastolic blood cnkyjjvi21 mm[Hg]DO Clint Alejandros Work Phone: 1(271)52431 [address]12-19-2022 09:08-0500 Heart rate61 /MagdalenaO Clint Alejandros Work Phone: 1(837)02331 [address]12-19-2022 09:08-0500 Respiratory rate16 /MagdalenaO Clint Alejandros Work Phone: 1(872)21131 [address]12-19-2022 09:08-0500 SaO2% (BldA) [Mass fraction]98 %DO Clint Jean Baptiste Work Phone: 1(714)33031 [address]12-19-2022 09:08-0500 Systolic blood hfahjkwh978 mm[Hg]DO Clint Alejandros Work Phone: 1(780)42731 [address]11-28-2022 08:08-0500 Body sewaip25.1 kgDO Clint Jean Baptiste Work Phone: 1(953)93031 [address]11-28-2022 08:08-0500 Diastolic blood rotmxsxa87 mm[Hg]DO Clint Alejandros Work Phone: 1(302)55431 [address]11-28-2022 08:08-0500 Heart rate56 /minDO Clint Alejandros Work Phone: 1(339)60231 [address]11-28-2022 08:08-0500 Respiratory rate20 /minDO Clint Alejandros Work Phone: [facility]11-28-2022 08:08-0500 SaO2% (BldA) [Mass fraction]98 %DO Clint Jean Baptiste Work Phone: [facility]11-28-2022 08:08-0500 Systolic blood mm[Hg]DO Clint Jean Baptiste Work Phone: [facility]10-28-2022 14:40-0400 Body kieqmu216.56 cmDO Clint Jean Baptiste Work Phone: [facility] Encounters Encounter DateEncounter TypeCare ProviderFacilityStart: 26-85-6443xhtpnscqsh Isaías Jordan IIFacility:[facility]tart: 05-09-2025 End: 82-40-3134Mqmiwmxv Result EncounterIsaías Jordan DO Work Phone: [facility] External Department UnsolicitedStart: 05-09-2025 End: 78-23-4406Nmmmsjjx Result EncounterIsaías Jordan DO Work Phone: [facility] External [facility] UnsolicitedStart: 05-06-2025 ambulatoryMichael NILLFacility:FTMCStart: 05-05-2025 End: 64-75-2867ezwwhgchsiVlsfxm E Braun MD Work Phone: 1([phone]-[facility] AmbulatoryStart: 05-05-2025 End: 98-53-0857Ylprrhd encounter Jon Mims APRN-[facility] Work Phone: Start: 52-05-8741Wza-patient / Non-visitIsaías Jordan II DO-[facility] Work Phone: Start: 54-90-0157Zst-patient / Non-visitIsaías Jordan II DO-[facility] Work Phone: Start: 04-20-2025 End: 08-25-3096uvwsynfmqrOyyknbg R NILLFacility:CD:[id number]: 04-13-2025 End: 87-12-2809fjbizobwynHyrowzi R NILLFacility: [facility]vueStart: 04-13-2025 End: 10-86-9311Xpmkboa encounter procedureMichael R NILL [id number]-[facility]sk[facility] Start: 04-11-2025 End: 94-18-8169ifbmczaqmdFKEBHZQ R WEHBEMercy Wexner Medical Centertart: 51-99-9647igztxlreznJpvcnhl NILLFacility: [place]walkStart: 04-11-2025 End: 92-59-0646zstzfbqvrhUOOKLB TOSCANHealthSouth [facility] Hospital [facility] Springstart: 00-74-9124Wht-patient / Non-visitOutside Provider-[facility] Work Phone: Start: 73-75-5717oyenfntuzwBsjsonw NILLFacility: BethanieNaeemtart: 04-04-2025 End: 62-91-6686ryehoariarBsnurc E Braun MD Work Phone: [facility] Work Phone: Start: 04-04-2025 End: 02-07-8292Xywxqxt encounter procedureIsaías Jordan II -[facility] Work Phone: Start: 03-30-2025 End: 42-90-1837Swgangou Result EncounterRandy Turner TERADATA ARCHITECT Work Phone: NOCN External Department UnsolicitedStart: 03-30-2025 End: 85-66-5918Sxgsozee Result EncounterRandy Turner TERADATA ARCHITECT Work Phone: noms External Department UnsolicitedStart: 03-21-2025 Registered RecurringRandy Turner [facility] Acute Work Phone: Start: 03-21-2025 End: 69-75-9240gjfupjjyiaGgashf E Braun MD Work Phone: [facility] Work Phone: Start: 03-21-2025 End: 84-85-3130Fplpdja encounter procedureYoshivanda Arnel Jordan II [facility] Work Phone: Start: 59-29-6371Aod-patient / Non-visitYoshivanda Jordan II DO-[facility] Professional [facility] Work Phone: Start: 02-01-2025 End: 52-68-6207tpvhczaoxuLytnqr E BraunFacility:[facility] Hospitaltart: 91-95-9201Ket-patient / Non-visitCatherine L Ly DO-[facility] Work Phone: Start: 41-58-5473Axx-patient / Non-visitSandro Chin MD-[facility] Professional [facility] Work Phone: Start: 12-21-2024 End: 23-51-5057Nznebk flowsheetHivicky Martinez MD Work Phone: [facility] CI ENTStart: 12-21-2024 End: 91-42-9781Poykxq flowsheetConstantino Martinez MD Work Phone: [facility] CI ENTStart: 12-21-2024 End: 73-58-5601Fwaehk outpatient new 30 minutesHivicky Martinez MD Work Phone: [facility] CI ENTComment on above:Globus sensation (Primary Dx); LPRD (laryngopharyngeal reflux disease)Start: 12-21-2024 End: 53-24-4215mpvedimtytJQHQLX H TIMMISNot AvailableStart: 12-20-2024 End: 09-82-6683noemmqsuxnJgyvtv E BraunFacility:[facility] Hospitaltart: 12-20-2024 End: 80-09-6938Axxtkqaw ReferredSandro Chin MD-[facility] Work Phone: Start: 12-20-2024 End: 31-65-0408Ywfpqqk encounter procedureSandro Chin MD-[facility] Work Phone: Start: 12-20-2024 End: 68-06-8582Negeaad encounter statusSandro Chin [facility]ertart: 12-14-2024 End: 32-42-0145henvwbpynaClbcqrcluDelaware County Hospital Work Phone: Start: 12-14-2024 End: 45-53-0197Jedcisn encounter procedureH[facility] Work Phone: Start: 88-78-3570Hqpjmfigiv RecurringMichael Grillis DO Work Phone: [facility] Work Phone: Start: 09-06-2024 End: 79-22-4575quqmnryvmsPtuzhgp E Grillis DO Work Phone: [facility] Work Phone: Start: 09-06-2024 End: 31-85-7556Uauikbz encounter procedureMichael Grillis DO Work Phone: [facility] Physician [facility] Work Phone: Start: 24-57-5954Ulm-patient / Non-visitMichael Grillis DO Work Phone: [facility] GroupMid[facility] Work Phone: Start: 07-01-2024 End: 89-55-2862Gclzfao encounter procedureMichael Grillis DO Work Phone: [facility] Work Phone: Start: 03-25-2024 End: 22-93-8942armrnbplajYSNAFFX A CARRFREDDIEMercy Health [facility] Start: 03-25-2024 End: 57-67-0909Vqmwtu follow up visit related to original Gina Howard [employer]AGE [employer]UCER-[employer]ING REPA[employer]ER Work Phone: [facility] Physicians General SurgeryComment on above: History of removal of Port-a-Cath (Primary Dx); History of colon cancerStart: 03-15-2024 End: 84-12-3075smdgzylogsEZFSOXLPeaceHealth St[facility] Start: 03-15-2024 End: 51-33-4806Noplhtt encounter procedureSherwinhaebowen Klever Grillis DO Work Phone: [facility] Physicians [facility] SurgeryComment on above: History of colon cancer (Primary Dx)Start: 03-03-2024 End: 44-76-7386vtpisgjeseGUHQRTUPeaceHealth St. [facility] Start: 03-03-2024 End: 99-70-6866Zdduwq outpatient visit 15 minutesMicarleth Marcillis DO Work Phone: [facility] SurgeryComment on above: History of colon cancer (Primary Dx)Start: 01-19-2024 End: 97-42-7719chxemcoyagWA Clint Jean Baptiste Work Phone: [facility] Work Phone: Start: 01-19-2024 End: 66-77-4621Kvumxrm encounter procedureDO Clint Jean Baptiste Work Phone: [facility] Physician [facility] Ambulatory Work Phone: Start: 53-58-1500Fiofhlapry RecurringDO Clint Jean Baptiste Work Phone: [facility] Work Phone: Start: 44-55-9049Cqp-patient / Non-visitDO Clint Jean Baptiste Work Phone: [facility] GroupMid[facility]Val[facility] Professional [facility] Work Phone: Start: 30-23-0253Ogw-patient / Non-visitDO Clint Jean Baptiste Work Phone: firtampaignacio Physician GroupMid-Valley [facility] Professional [facility] Work Phone: Start: 40-34-3144Mruzffq encounter statusDO Clint Jean Baptiste Work Phone: [facility]tart: 11-17-2023 End: 65-94-0447jvvhgueawzSH Clint Jean Baptiste Work Phone: [facility] Work Phone: Start: 11-17-2023 End: 96-04-3322Suqwdak encounter procedureDO Clint Jean Baptiste Work Phone: [facility] Physician [facility] Work Phone: Start: 70-62-4400Xyfojlvycq RecurringDO Clint Jean Baptiste Work Phone: [facility] Work Phone: Start: 09-26-2023 End: 60-51-3426twayajujzcFU Michael E Grillis Work Phone: [facility] Work Phone: Start: 09-26-2023 End: 55-58-3794Zoueepo encounter procedureDO Clint Jean Baptiste Work Phone: [facility] Amb[facility] Work Phone: Start: 56-23-8505Bbk-patient / Non-visitDO Clint Jean Baptiste Work Phone: [facility] Physician [facility] Work Phone: Start: 05-19-2023 End: 56-38-8847cpopgfuykfGjwbwx Braun Other [facility] [employer] Other Start: 70-04-0845Ywzqyr outpatient visit 15 minutes Sandro Hamilton [facility]art: 11-16-2022 End: 41-89-9225xxzsokueynOOWEULR J ADAMOWICZFacility:H2Bfwmp: 11-02-2022 End: 42-61-3181nfqhmyoyujBNFXKNS J ADAMOWICZFacility:Y6Avbxi: 10-19-2022 End: 42-47-0539aoomspmhvkUL MARCIA E BRAUNFacility:D5Dgkeb: 09-14-2022 End: 26-96-0581wryzlparowOZRVRJB J ADAMOWICZFacility:J6Owjli: 09-02-2022 End: 23-96-3483zkmzauzkkpNWO [facility] Work Phone: Start: 09-02-2022 End: 89-87-8788Iplsbgpdvk RecurringDO Isaías Adamowicz II Work Phone: [facility] Center Work Phone: Start: 09-01-2022 End: 72-58-6948oxwlklwaxnPR SANDRO CHINFacility:O0Envfw: 08-31-2022 End: 06-53-6306ulsltdtbvbUZGOCXQ J JULIANFacility:W0Zlgml: 08-19-2022 End: 34-37-3886xfueoyijfkJDF [facility] Work Phone: Start: 08-19-2022 End: 72-18-7589Vdawhepdyb RecurringDO Isaías Adamowicz II Work Phone: [facility] Work Phone: Start: 08-16-2022 End: 77-17-8938dkltowsqazFGHSNBT J ADAMOWICZFacility:W7Euvai: 08-03-2022 End: 96-80-0660nhyehjbjmlBLMONYH J JULIANFacility:G2Imsmp: 07-22-2022 End: 18-76-6038tjufuqdiwyACT [facility] Work Phone: Start: 07-22-2022 End: 94-29-4286Uloysfebeu RecurringDO Isaías Adamowicz II Work Phone: [facility] Work Phone: Start: 07-20-2022 End: 49-86-9673smpnxpfwuvETMEAOK Arnel JORDANFacility:S0Ratih: 07-06-2022 End: 90-10-9873agqngmeskbTG Clint Jean Baptiste Work Phone: [facility] Work Phone: Start: 07-06-2022 End: 58-63-3643Bsbgznrl ReferredDO Clint Jean Baptiste Work Phone: [facility] [address] Work Phone: Start: 05-23-2423Fgwwrndmnn Sharon Jean Baptiste Work Phone: [facility] Work Phone: Start: 06-24-2022 End: 20-89-8591oxjuogqwscSQ Michael E Grillis Work Phone: [facility] Work Phone: Start: 06-24-2022 End: 41-55-3158Imucrgudzu RecurringDO Clint Jean Baptiste Work Phone: [facility]-Cancer CenterStart: 06-24-2022 End: 54-16-8917gkgtdgnjgeCZ Michael E Grillis Work Phone: [facility] Work Phone: Start: 06-24-2022 End: 16-56-2070Ethubwwugp Sharon Jean Baptiste Work Phone: [facility]-Cancer CenterStart: 06-22-2022 End: 01-11-7435qksfksphknWCGPREN J ADAMOWICZFacility:H3Vvmfk: 06-08-2022 End: 45-45-6922hvodymxrkgXPNCVZY J ADAMOWICZFacility:N8Bbjnu: 06-03-2022 End: 06-46-1886qyjxtyiwigGY Michael E Grillis Work Phone: [facility] Work Phone: Start: 06-03-2022 End: 45-16-2260Usuudqbbir Sharon Jean Baptiste Work Phone: [facility]-Cancer CenterStart: 06-01-2022 End: 91-67-7708ritlzwsarxJDMZCHU J ADAMOWICZFacility:Q8Cyqnt: 05-22-2022 End: 62-62-2026gzefquanwoBNJWTSS J ADAMOWICZFacility:C3Pcvzj: 05-21-2022 Encounter for preprocedural laboratory examinationDR CLINT ALEJANDROS .[facility]: 05-18[facility]2022 End: 08-55-8406qrklgmwjulXN CLINT ALEJANDROS .Facility:P0Rbcmu: 05-18-2022 End: 68-25-5136Vkhetzrqn for preprocedural laboratory examinationDR CLINT ALEJANDROS .Facility:Z8Vujcu: 04-10-2022 End: 12-82-9789Iopvukjmfo and management of inpatientDR SANDRO CHIN Facility:Y4Agdei: 04-08-2022 End: 62-22-3300smbmfvbjstNN CLINT ALEJANDROS .Facility:L0Txlyd: 04-04-2022 Encounter for preprocedural cardiovascular examinationDR CLINT JEAN BAPTISTE .[facility]Start: 12-40-0840Kdpxffsyd for preprocedural laboratory examinationDR CLINT ALEJANDROS .[facility]Start: 04-02-2022 End: 79-74-9523fbdpllaxrvVI CLINT ALEJANDROS .Facility:W9Hcgpi: 04-02-2022 End: 04-35-3042Amuhkmfrd for preprocedural cardiovascular examinationDR CLINT ALEJANDROS .Facility:Z9Vixqj: 03-27-2022 End: 81-52-6393rueiuuqdipKW CLINT ALEJANDROS .Facility:B7Pmgsy: 03-13-2022 End: 04-55-8331qecmiaerieIA CLINT ALEJANDROS .Facility:E2Dhgie: 03-09-2022 End: 20-46-0865jaxhwnyqpvAF CLINT ALEJANDROS .Facility:F6Upemz: 01-09-2022 End: 23-66-0907wlwawftdsuZS SANDRO CHINFacility:H1 Procedures DateProcedureProcedure DetailPerforming ClinicianStart: 36-97-0439Vlycymgtmy other sourceTimvanda Jordan DO Work Phone: Start: 41-81-0804TLTHT PROTEIN, URINETimvanda Jordan DO Work Phone: Start: 40-15-7368UIBYYTM POCT GLUCOMETERSRandy Betancur Johnny TERADATA ARCHITECT Work Phone: Start: 37-43-8292Crvrrrmodhwnwuui antigen Harish Chin MD Work Phone: Comment on above:Nonsmokers <3.9 Smokers <5.6Roche [employer]ostics Electrochemiluminescence Immunoassay(ECLIA)Values obtained with different assay methods or kitscannot be used interchangeably. Results cannot beinterpreted as absolute evidence of the presence orabsence of malignant disease.Performed at: [facility] [place], [place] [id number] Director: Edilson Saunders PhD, Phone: [phone]: 08-24-2024 Carcinoembryonic antigen ceaMicsummit healthcare regional medical centerl Monicoillis DO Work Phone: Comment on above:Nonsmokers <3.9 Smokers <5.6[employer] Electrochemiluminescence Immunoassay(ECLIA)Values obtained with different assay methods or kitscannot be used interchangeably. Results cannot beinterpreted as absolute evidence of the presence orabsence of malignant disease.Performed at: [facility] [place], [place] [id number] Director: Edilson Saunders PhD, Phone: [phone]: 03-15-2024 Removal of implantable venous access portMichael NILL Start: 64-05-8525Onbyogcoomcfsirv antigen Frank Jean Baptiste Work Phone: Comment on above:Nonsmokers <3.9 Smokers <5.6[employer] Electrochemiluminescence Immunoassay(ECLIA)Values obtained with different assay methods or kitscannot be used interchangeably. Results cannot beinterpreted as absolute evidence of the presence orabsence of malignant disease.Performed at: [employer] [place], [place] [id number] Director: Edilson Saunders PhD, Phone: [phone]: 09-18-2023 Carcinoembryonic antigen Frank Jean Baptiste Work Phone: Comment on above:Nonsmokers <3.9 Smokers <5.6[employer] Electrochemiluminescence Immunoassay(ECLIA)Values obtained with different assay methods or kitscannot be used interchangeably. Results cannot beinterpreted as absolute evidence of the presence orabsence of malignant disease.Performed at: [facility] [employer] [id number] Director: Edilson Saunders PhD, Phone: [phone]: 05-07-2023 ColonoscopyMichael Grillis DO Work Phone: Start: 74-17-1723BhzaxfosnssAwanopk NILL Start: 19-39-0409Nepplggii of implantable venous access device using fluoroscopic guidanceMichael NILL Start: 40-58-3273Ewwsnflda of Sigmoid Colon, Open ApproachISAÍAS JORDANStart: 35-13-3334Ntigvcg colectomyMichael NILL Start: 99-41-4481JaxlayeeskmZyoyplu NILL Cesarean sectionMichael NILL EsophagogastroduodenoscopyMichael NILL Extraction of wisdom toothMichael NILL Repair of left inguinal herniaMichael NILL Plan of Treatment DateCare ActivityDetailAuthorStart: 87-54-5430Nyyjluths for malignant neoplasm of colonNOMS HealthcareStart: 59-74-0862Fnfywqtpn for malignant neoplasm of colonColonoscopyProMccullough-Hyde Memorial Hospital SystemStart: 50-53-1165KcpsvbqebClinton Memorial Hospitaltart: 31-62-8979TolipfelkClinton Memorial Hospitaltart: 65-70-1671ksiqpmlauwHrtvhpfcmqTbbjcMemorial Hospital Northtart: 04-04-2025 [facility] Work Phone: Start: 12-00-1707Taxjmla referralOhiohealth Work Phone: Start: 40-98-1642Hcyil BMI ScreeningAdult BMI ScreeningProBrookwood Baptist Medical Center Health SystemStart: 62-22-5598Oyqfumb ScreeningTobacco ScreeningZanesville City Hospital Health SystemStart: 79-37-8219UZLYI-19 Vaccine ( season)COVID-19 Vaccine ()NOMS HealthcareStart: 03-07-2025 Influenza vaccinationInfluenza Vaccine (#1)NOM HealthcareStart: 23-08-3619Enoqg BMI ScreeningAdult BMI ScreeningPremier Health Atrium Medical Center SystemStart: 87-28-0175Rvnxdao ScreeningTobacco ScreeningPremier Health [facility]rium Medical Center SystemStart: 02-01-2025 End: 89-83-0881TqhohnszkClinton Memorial Hospitaltart: 12-21-2024 End: 18-06-8907Knmgwyr encounter zkseolnyz67/17/2025 8:40 AM EDT Office Visit [facility] [address] [facility] [address] [place] [address] Constantino Martinez MD [address] [facility] [address] [place] [address] ArrivedNOMS CI ENTComment on above:ArrivedStart: 75-01-7383Vqtfhps referralOhiohealth Work Phone: Start: 03-25-2024 End: 43-16-2870Vpvubvv encounter wcdzangms09/19/2024 11:00 AM EDT Office Visit [facility] [address] [place] [id number] Masha Howard, OLIVIA-JHON [address] [place] [address] [facility] SurgeryStart: 03-15-2024 End: 61-66-9296Myblsib encounter aodkmires97/09/2024 1:30 PM EDT Office Visit [facility] [address] [facility], [id number] Clint Jean Baptiste, [address] [place] [address] [facility] SurgeryStart: 69-06-7882PGPTG-19 Vaccine ( season)COVID-19 Vaccine ()[facility]MTracy Medical Center SystemStart: 28-84-1250Ermmbopis vaccinationInfluenza VaccinePremier Health Atrium Medical Center SystemStart: 86-07-1496XwdhftaL[facility] Work Phone: Start: 27-38-5613Lylnuad [facility] Work Phone: Start: 95-12-6138DMQOF-19 Vaccine () COVID-19 Vaccine ()ProMTracy Medical Center SystemStart: 11-18-2022 [facility] CenterStart: 90-76-6977JjuyveoncKing'S Daughters Medical Center [facility] CenterStart: 70-56-7769WefnzlehrKing'S Daughters Medical Center [facility] CenterStart: 10-21-2022 [facility] CenterStart: 67-93-3789VhksznbakKing'S Daughters Medical Center [facility] CenterStart: 58-55-6995OjljqcbqvKing'S Daughters Medical Center [facility] CenterStart: 09-23-2022 [facility] CenterStart: 24-43-3213PtjfwkmagKing'S Daughters Medical [facility] CenterStart: 99-57-9555CedwrkqseKing'S Daughters Medical Center [facility] CenterStart: 09-02-2022 [facility] CenterStart: 36-35-0078UtonyweugKing'S Daughters [facility] CenterStart: 19-84-7727ImisoduxyKing'S Daughters Medical Center [facility] CenterStart: 08-05-2022 [facility] CenterStart: 15-54-1612RhpdpfahwKing'S Daughters Medical Center [facility] CenterStart: 94-61-0228JehdcgzaeKing'S Daughters Medical Center [facility] CenterStart: 06-26-2022 [facility] CenterStart: 96-49-4862DzekfclpjKing'S Daughters Medical Center [facility] CenterStart: 17-76-6634Qppfkewmafemy metabolic 2000 panel - Serum or Plasma [facility] Hospitaltart: 58-33-7703Zxgolgofz measurementClinton Memorial Hospitaltart: 24-01-0134DzmwvcdnhClinton Memorial Hospitaltart: 75-20-4744YuonwviqaClinton Memorial Hospitaltart: 99-10-2427FzlbrhrwnClinton Memorial Hospitaltart: 43-78-7650OigfhyczeClinton Memorial Hospitaltart: 59-25-1621Apvuectdx for malignant neoplasm of breastMammogramNOMS Healthcare Start: 08-20-7580Vnzgpezhz for malignant neoplasm of cervixNOMS HealthcareStart: 68-53-9720Tuoayhgkz for malignant neoplasm of cervixPap SmearPremier Health Atrium Medical Center SystemStart: 17-08-8798Wuuizbzhqxccyt of varicella zoster vaccineZoster (Shingles) Vaccine (1 of 2)[facility] Hospitaltart: 31-79-9278SSqI,Tdap and Td Vaccines (1 - Tdap)DTaP,Tdap and Td Vaccines (1 - Tdap)[facility] Hospitaltart: 01-74-3584Betjvsrrb B Vaccines (1 of 3 - 19+ 3-dose series) Hepatitis B Vaccines (1 of 3 - 19+ 3-dose series)[facility] HospitalStart: 08-69-5081Ufaps BMI Follow Up PlanAdult BMI Follow Up PlanHighsmith-Rainey Specialty Hospitaltart: 10-38-2599Lrzefyomma ScreeningDepression ScreeningHighsmith-Rainey Specialty Hospitaltart: 35-83-0673DEbQ/Tdap/Td Vaccines (1 - Tdap)DTaP/Tdap/Td Vaccines (1 - Tdap)[facility] HealthcareStart: 28-46-6414GKT Vaccines (1 of 1 - Standard series) MMR Vaccines (1 of 1 - Standard series)[facility] HospitalStart: 36-51-8205Dvrtfywlq for malignant neoplasm of colonNOMS HealthcareAlanine aminotransferase [Enzymatic activity/volume] in Serum or Plasma by No addition of P-'-[facility] Work Phone: Alanine aminotransferase [Enzymatic activity/volume] in Serum or Plasma by No addition of [facility] Albumin [Mass/volume] in Serum or PlasmaKing'S Daughters [facility] Work Phone: Albumin [Mass/volume] in Serum or PlasmaBrown Memorial HospitalAlbumin/Globulin ratioUpper Valley Medical Center Work Phone: Albumin/Globulin ratioBrown Memorial HospitalAlkaline phosphatase [Enzymatic activity/volume] in Serum or Plasma [facility] Work Phone: Alkaline phosphatase [Enzymatic activity/volume] in Serum or PlasmaBrown Memorial HospitalAnion gap measurementUpper Valley Medical Center Work Phone: Anion gap measurementBrown Memorial Hospital Aspartate aminotransferase [Enzymatic activity/volume] in Serum or Plasma [facility] Work Phone: Aspartate aminotransferase [Enzymatic activity/volume] in Serum or PlasmaBrown Memorial HospitalBasophil countUpper Valley Medical Center Work Phone: Basophil percent differential countUpper Valley Medical Center Work Phone: Bilirubin.total [Mass/volume] in Serum or Plasma [facility] Work Phone: Bilirubin.total [Mass/volume] in Serum or Plasma Brown Memorial HospitalCalcium [Mass/volume] in Serum or Plasma [facility] Work Phone: Calcium [Mass/volume] in Serum or [facility] HospitalCarbon dioxide, total [Moles/volume] in Serum or Plasma [facility] Work Phone: Carbon dioxide, total [Moles/volume] in Serum or [facility] HospitalCarcinoembryonic Ag [Mass/volume] in Serum or [facility] HospitalChloride [Moles/volume] in Serum or PlasmaUpper Valley Medical Center Work Phone: Chloride [Moles/volume] in Serum or [facility] HospitalChoriogonadotropin ( test) [Presence] in Urine [facility] HospitalComprehensive metabolic 1999 panel - Serum or PlasmaBrown Memorial HospitalComprehensive metabolic 1999 panel - Serum or PlasmaBrown Memorial HospitalComprehensive metabolic 1999 panel - Serum or [facility] HospitalComprehensive metabolic 1999 panel - Serum or [facility] HospitalComprehensive metabolic 1999 panel - Serum or [facility] Comprehensive metabolic 1999 panel - Serum or [facility] HospitalComprehensive metabolic 1999 panel - Serum or [facility] HospitalComprehensive metabolic 1999 panel - Serum or [facility] HospitalComprehensive metabolic 1999 panel - Serum or Plasma [facility] HospitalComprehensive metabolic 1999 panel - Serum or [facility] HospitalComprehensive metabolic 1999 panel - Serum or [facility] HospitalComprehenve metabolic 1999 panel - Serum or [facility] HospitalComprehensive metabolic 1999 panel - Serum or [facility] HospitalComprehensive metabolic 1999 panel - Serum or [facility] Comprehensive metabolic 1999 panel - Serum or [facility] Hospitalhenve metabolic 1999 panel - Serum or [facility] HospitalComriver woods urgent care center– milwaukeehenve metabolic 1999 panel - Serum or [facility] HospitalCreatinine and Glomerular filtration rate.predicted panel - Serum, Plasma or [facility] Work Phone: Creatinine and Glomerular filtration rate.predicted panel - Serum, Plasma or [facility] HospitalCT Abdomen and Pelvis W contrast [facility]CT Abdomen and Pelvis W contrast [facility]CT Abdomen and Pelvis W contrast IV Brown Memorial HospitalCT Abdomen and Pelvis W contrast [facility]CT Abdomen and Pelvis W contrast [facility]CT Abdomen and Pelvis W contrast [facility]CT Chest W contrast [facility]CT Chest W contrast [facility]CT Chest W contrast [facility]CT Chest W contrast [facility]CT Chest W contrast [facility]CT Chest W contrast [facility] NorthEosinophil percent differential countKing'S [facility] Work Phone: Eosinophils [#/volume] in [facility] Work Phone: Erythrocyte mean corpuscular volume determination [facility] Work Phone: Erythrocytes [#/volume] in BloodKing'S Daughters Medical [facility] Work Phone: Globulin [Mass/volume] in SerumKing'S Daughters Medical [facility] Work Phone: Globulin [Mass/volume] in SerumBrown Memorial HospitalGlucose [Mass/volume] in Serum or PlasmaKing'S Daughters [facility] Work Phone: Glucose [Mass/volume] in Serum or PlasmaBrown Memorial HospitalHematocrit [Volume Fraction] of BloodKing'S D[facility] Work Phone: Hemoglobin [Mass/volume] in BloodKing'S Daughters Medical [facility] Work Phone: Hemoglobin distribution, width determinationKing'S Daughters [facility] Work Phone: Leukocytes [#/volume] in BloodKing'S Daughters Medical [facility] Work Phone: Lymphocyte countKing'S Daughters Medical Center [facility] Work Phone: Lymphocyte percent differential countKing'S Daughters [facility] Work Phone: Magnesium measurementBrown Memorial Hospital Magnesium measurementBrown Memorial HospitalMagnesium measurement Brown Memorial HospitalMean corpuscular hemoglobin concentration determinationKing'S Daughters Medical Center [facility] Work Phone: Mean corpuscular hemoglobin determinationKing[facility] Work Phone: Measurement of renal functionKing'S Daughters [facility] Work Phone: Measurement of renal functionBrown Memorial HospitalMG Breast - bilateral ScreeningBrown Memorial Hospital Monocyte countKing'S [facility] Work Phone: Monocyte percent differential countKing'S [facility] Work Phone: Neutrophil countKing'[facility] Work Phone: Neutrophil percent differential countKing'S [facility] Work Phone: Patient [facility] Work Phone: Patient [facility] Work Phone: Platelet mean volume determinationKing'S Daughters [facility] Work Phone: Platelets [#/volume] in BloodKing'S Daughters Medical [facility] Work Phone: Potassium [Moles/volume] in Serum or PlasmaKing'S Daughters [facility] Work Phone: Potassium [Moles/volume] in Serum or [facility] HospitalProtein [Mass/volume] in Serum or [facility] Work Phone: Protein [Mass/volume] in Serum or [facility] [Moles/volume] in Serum or [facility] Work Phone: Sodium [Moles/volume] in Serum or [facility] HospitalUrea nitrogen [Mass/volume] in Serum or [facility] Work Phone: Urea nitrogen [Mass/volume] in Serum or Plasma [facility] Immunizations Immunization DateImmunizationNotesCare EwcuyddfWgbdsvko21-51-8678bbhslsgce virus vaccine, unspecified formulationRandy Turner NP Work Phone: University HospitalBceydnhnaz97-41-1839TNZP-CmJ-6 (COVID-19) mRNAMUL.ORD![id number] NILL [phone]-SneamGreen Cross Hospital [facility] [place] 47-75-8611WNLP-CoV-2 (COVID-19) mRNA-1273 vaccineMichael NILL [phone]-WjhjiCleveland Clinic [facility] [place] 61-10-8353TUBH-CoV-2 (COVID-19) mRNA-1273 vaccineMichael NILL [phone]-ZuxwpCleveland Clinic [facility] [place] 92-80-6453WKJG-CoV-2 (COVID-19) mRNA-1273 vaccineMichael NILL [phone]-JenlxCleveland Clinic [facility] [place] Payers DatePayer CategoryPayerPolicy [id number] Health Insurance [id number] [facility] Member Subscriber Plan / Payer (Effective 2022-) Name: Shasta Jacobson Member ID: [id number] Relation to Subscriber: Self Name: Shasta Jacobson Subscriber ID: [id number] Payer ID: Not on file Type: Not on file Address: [address] [id number] [facility] (PPO) [id number] 2022- [phone] [address] [place] [id number] [id number] [id number] 2.16.840.1.485574.3.57[id number] 2.16.840.1.374365.3.579.2.16154-62-6765Oldobrf8488028 2.16.840.1.826226.3.579.2.19616-34-2186Soqbotn2353492 2.16.840.1.933815.3.579.2.07620-93-7832Iaddueb3112681 2.16.840.1.002374.3.579.2.30799-14-5123Wwhialy4482319 2.16.840.1.497081.3.579.2.55858-35-7839Gnpyjsy7669269 2.16.840.1.787538.3.579.2.91600-72-2190Npcgzhv3215217 2.16.840.1.655389.3.579.2.82873-79-9525Nyxksoc7463080 2.16.840.1.291514.3.579.2.97067-27-7523Kndpsqb7266664 2.16.840.1.829538.3.579.2.89486-75-3246Fobbylk1263615 2.16.840.1.006607.3.579.2.45858-05-2025Oajfvhm0937544 2.16.840.1.830204.3.579.2.82925-17-4962Bpzyodz6242032 2.16.840.1.932723.3.579.2.21367-98-0818Cgxbukh8578204 2.16.840.1.526211.3.579.2.69754-49-9469Zfunacc7904609 2.16.840.1.259962.3.579.2.55236-20-2736Uohfywr9563642 2.16.840.1.791736.3.579.2.98459-84-6043Rmbpowf5222507 2.16.840.1.474975.3.579.2.26938-05-5722Cyjzywl4761348 2.16.840.1.172387.3.579.2.23708-90-5545Rnojbfy6145165 2.16840.1.877486.3.579.2.66699-98-8323Ypjhfsx6872995 2.16840.1.177330.3.579.2.88096-42-0638Iincehl2361231 2.16840.1.218310.3.579.2.69621-16-3056Godtgtl9838366 2.16840.1.227004.3.579.2.37153-24-1533Vycjouy8877480 2.16840.1.973412.3.579.2.65369-38-0872Ekrghir8217442 2.16840.1.589504.3.579.2.48861-79-0783Oislxml04068435 2.16840.1.634262.3.579.2.107259-26-3414Axqyupr37322936 2.16840.1.072413.3.579.2.155734-49-0896Gvmqolb44757503 2.16840.1.578241.3.579.2.686423-03-7816Fkbtheb57246788 2.16840.1.550358.3.579.2.265054-36-2719Khehnqr685946804 2.16840.1.357838.3.579.2.03704-36-0648Phjjqda309500269 2.16.840.1.113666.3.579.2.35475-54-4803Rkdtdsr73689330 2..840.1.532614.3.579.2.81675-63-3949Nshtaio15663684 2.16.840.1.281796.3.579.2.890Fvdzywl58232189Meyhrrs13968146 2..840.1.837132.3.579.2.285Adovreh67741957 2..840.1.178629.3.579.2.531 Raphohh55106098 2..840.1.843827.3.579.2.531 Social History DateTypeDetailFacilityStart: 05-27-2022 End: 36-89-5391Zlckzdp smoking status NHISNever smoked tobacco (finding) [facility] Hospitaltart: 75-38-6874Viu [facility]igned At [facility]: 03-03-2024 End: 04-90-4497Bjs Assigned At [facility] [employer] Other Start: 40-00-8556Oxpkjyt smoking status NHISEx-smoker ProMcrossbridge behavioral health Health SystemHistory of tobacco useCurrent smokerProBrookwood Baptist Medical Center Health SystemHistory of tobacco useCigarette SmokerProMccullough-Hyde Memorial [facility] SystemStart: 04-19-2022 End: 51-00-1745Kinsigi use and exposureSmokeless tobacco non-userZanesville City Hospital Health SystemStart: 03-03-2024 End: 76-20-5461Uiinjkcpd beverage intakeCurrent drinker of alcohol (finding) [facility] SystemStart: 03-03-2024 End: 37-46-8889Ypszptc of Social functionPremier Health Atrium Medical Center SystemStart: 74-43-3815Rulbix the past 12 months we worried whether our food would run out before we got money to buy more.Never TrueProMccullough-Hyde Memorial Hospital SystemStart: 09-30-3335Aawtiko Commentsmoked when patient was 18 for 6 monthsPremier Health Atrium Medical Center SystemStart: 96-90-8325Dpcslcn CommentoccasionallyProBrookwood Baptist Medical Center Kadoink SystemStart: 61-28-0024Djq assigned at birthNot on fileSpringfield Hospitalki work SystemStart: 09-06-2024 End: 96-24-4157AspQjlkek (finding)[facility] Memorial HospitalTobacco smoking status NHISTobacco smoking consumption unknownUniversity HospitalStart: 43-44-1187Qbmwhip CommentoccBLUE MOUNTAIN HOSPITAL, INC. HealthcareSexual OrientationGreen Cross Hospital General Surgery [place] NEGATED: Highlighted [facility] Goals DatePatient GoalDesired Activity/State Clinical Notes 04-21-2021 to 04-13-2025 Note Date & SupfTezsInykzxct66-95-4801 NoteGeneral Surgery Office/Clinic Note Chief Complaint consultation for port placement HPI Staff 60 year old female presents on consultation from Dr. Jordan for port placement due to recurrent colon carcinoma. Previous left port placement completed 05/2022 and removal 03/2024. History of Present Illness 60 yo female with h/o GERD, anxiety, glaucoma, recurrent colon cancer, referred for ajculo-c-tsls insertion; patient has h/o sigmoid colectomy in [...] Malignant neoplasm of colon, unspecified) plan right umuugk-c-pbuv insertion under anesthesia; informed consent obtained. Ancef [...] Father. Immunizations Vaccine Date Status SARS-CoV-2 (COVID-19) mRNAMUL.ORD![id number] 05/16/2022 Recorded SARS-CoV-2 (COVID-19) mRNA-1273 vaccine 04/27/2021 Recorded SARS-CoV-2 (COVID-19) mRNA-1273 vaccine 08/02/2020 Recorded SARS-CoV-2 (COVID-19) mRNA-1 (more content not included)...[facility] For RehabilitationComment on above:Result Comment: Electronically Signed By: DAGMAR EMAMNUEL, Clint Muhammad\Date and Time Signed: 04/13/25 14:21 [id number] History of Present illness Narrative* Constantino Martinez [...] gland hypertrophy 12/20/2024 Situational anxiety 12/20/2024 bleeding ([facility]) 05/15/2022 Resolved Ambulatory Problems Diagnosis Date Noted [...] 4 weeksif no improvement. documented in this encounterUniversity HospitalFnrurdsdvg05-27-2276 Chief complaint+Reason for visit Narrative* Chief Complaint [...] 10:3 7am Screening mammogram for breast cancer [facility] 2024 10:37am Wellness examination December 20, 2024 10: 37am [facility] Work Phone: 1(160) 384-192706-10-2025 Evaluation note* Diagnosis Onset Date Resolution Status Admit Date GERD (gastroesophageal reflux disease) acuteJune 2024 9:27amPharyngitis, chronicacuteJune 2024 9:27amGlobus sensationacuteJune 2024 10:37amScreening mammogram for breast canceracute December 20, 2024 10:37amWellness examinationacuteJune 2024 10:37am [facility] Work Phone: 1(874) 801-905912-26-2024 Evaluation note* Diagnosis Onset Date Resolution Status Admit Date Osteoarthritis acuteDecember 2023 10:57amSituational anxietyacuteDecember 2023 10:57amAbnormal LFTsacuteMarch 2024 1:19pmChemotherapy-induced peripheral neuropathyacuteMarch 2024 1:19pmColon canceracuteMarch 2024 1:19pm Encounter for chemotherapy managementacuteSeptember 06, 2024 1:19pm [facility] Work Phone: 1(137) 809-636809-19-2024 History of Present illness Narrative* RAEGAN Taylor [...] of removal of Port-a-Cath [Z98.890] RAEGAN TAYLOR [facility] [place] This note was created with the assistance of a speech recognition program. While intending to generate a timely document that accurately reflects the content of the visit, no guarantee can be provided that every grammatical or spelling mistake has been or will be identified or corrected. Thank you for your understanding. RAEGAN Taylor 03/25/24 1143 documented in this encounterMiami Valley Hospital09-09-2024 History of Present illness Narrative* Clint [...] weeks for suture removal. documented in this encounterMiami Valley Hospital08-28-2024 History of Present illness Narrative* Clint Jean Baptiste DO - 03/03/2024 10:15 AM EDT Images from the original note were not included. [facility] [address] [address] Progress NOTE CHIEF COMPLAINT Chief Complaint Patient [...] a history of colon cancer resected by ne April 10, 2022 at the [facility]. Her last colonoscopy was in May, and was normal. 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 MEDICATION Current Outpatient Medications: brimonidine (ALPHAGAN) 0.2 [...] by mouth daily., Disp: , Rfl: omega 9-zxw-ide-fish oil (Fish OiL) 300-1,000 mg capsule, Take by mouth., Disp: , Rfl: omeprazole (PriLOSEC) 20 mg capsule, PATIENT REPORTS NEEDED , Disp: , Rfl: ALLERGY Allergies Allergen Reactions Hydrocodone Nausea And Vomiting Patient reports it was many years ago Codeine GI Disturbance MEDICAL HISTORY Past Medical History: Diagnosis Date Colon cancer ([facility] Female pelvic congestion syndrome 02/20/2023 Glaucoma of both eyes bleeding SURGICAL HISTORY Past Surgical History: Procedure Laterality Date SECTION HERNIA REPAIR inguinal hernia LEFT COLECTOMY SIGMOID COLON RESECTION BY DR JEAN BAPTISTE, AT [facility] WISDOM TOOTH EXTRACTION SOCIAL HISTORY Social History [...] Referring and communicating with other health career counselor History of colon cancer [Z85.038] Clint Jean Baptiste DO This note was created with the assistance of a speech recognition program. While intending to generate a timely document that accurately reflects the content of the visit, no guarantee can be provided that every grammatical or spelling mistake has been or will be identified or corrected. Thank you for your understanding. documented in this encounterMiami Valley Hospital11-13-2023 Evaluation note* Encounter Date Diagnosis Assessment Notes Treatment Notes Treatment Clinical Notes May, Acute sinusitis, unspecified (IC D-10 - J01.90) Sinus infections can be [...] for PT printed and given to pt. [employer] Other 09-18-2023 Progress note Author Isaías Jordan [facility] March 24, 2023 11:05amNote Date/TimeSeptember 2022 10:55[facility] [place] [address] Hem/Onc Follow Up Note - OP Signed Patient: Marysol Jacobson MR#: [id number] : 1965 Acct:[id number] Age/Sex: 57 / F Type: REG RCR Copies to: MD Clint Bernstein,FRAN Date of Service: 03/24/2023 Time of Service: [...] prior to f/u. f/u with me or geophysical operator in may/jun. renew her celebrex prescription. - History of Present Illness Chief Complaint: Patient is here for a 5 month follow up with labs and outside notes and radiology for review. 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 Labs reviewed on patient's chart from [place] - no significant cytopenias or electrolyte, renal/hepatic [...] Also engorged periuterine vessels. She has seen managing supervisor. she hadtransvaginal ultrasound. This will be monitored. Her GUEST RELATIONS ASSOCIATE has offered her a dexa scan. Her [...] for coordination of care (as documented) and rees-ot-waxs counseling of patient and/or family. [facility] - Medical History Medical History: [...] Sodium 139, Potassium 4.3, Chloride 105, Carbon Ndxrtoe55.3, Anion Gap 11.0, BUN 16, Creatinine 0.73, [...] % (Auto) 47.6, Lymph % (Auto) 39.4, [place] % (Auto) 9.0, Eos % (Auto) 2.8, Baso % (Auto) 1.2, Nucleat RBC Rel Count 0.1, Neut # (Auto) 2.4, Lymph # (Auto) 2.0, [place] # (Auto) 0.5, Eos # (Auto) 0.1, [...] by Isaías Jordan II, DO> 03/24/23 1105 [facility] Work Phone: 1(450) 516-221104-17-2023 Progress note Author Isaías Jordan [facility] October 21, 2022 8:50amNote Date/TimeApril 2022 8:38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 Labs reviewed on patient's chart from [place] - no significant cytopenias or electrolyte, renal/hepatic [...] for coordination of care (as documented) and ebau-yj-avaj counseling of patient and/or family. [facility] - Medical History Medical History: [...] by Isaías Jordan II, DO> 10/21/22 0850 [facility] Work Phone: 1(103) 346-221002-27-2023 Progress note Author Isaías Jordan [facility] September 02, 2022 9:09amNote Date/TimeFebruary 2022 8:58am[facility] at [address] [address] Hem/Onc Follow Up Note - OP Signed Patient: Marysol Jacobson MR#: [id number] : 1965 Acct:[id number] Age/Sex: 57 / F Type: REG RCR Copies to: Sandro Chin MD Clint Ernst [place],DO~ Date of Service: 09/02/2022 Time of Service: [...] 4 or 6 weeks with me or geophysical operator. - History of Present Illness Chief Complaint: Patient is here for a 2 week follow up with outside labs for review, prior to treatment today. States she is feeling remarkably better. 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 Labs reviewed on patient's chart from [place] - no significant cytopenias or electrolyte, renal/hepatic [...] for coordination of care (as documented) and kvcy-pz-xods counseling of patient and/or family. [facility] - Medical History Medical History: [...] by Isaías Jordan II, DO> 09/02/22 0909 [facility] Work Phone: 1(708) 213-366602-13-2023 Hospital Discharge instructionsAmbulatory Orders* Proceed with Treatment Time Frame: 08/19/22, Location: Determined By Patient [facility] Work Phone: 1(535) 607-802202-13-2023 Hospital Discharge instructionsAmbulatory Orders* Proceed with Treatment Time Frame: 08/19/22, Location: Determined By Patient * Proceed with Treatment Time Frame: 09/02/22, Location: Determined By Patient * [facility] Order Time Frame: 1 Week, Location: Determined By Patient [facility] Work Phone: 1(271) 691-982202-13-2023 Hospital Discharge instructionsAmbulatory Orders* Proceed with Treatment Time Frame: 08/19/22, Location: Determined By Patient * Proceed with Treatment Time Frame: 09/02/22, Location: Determined By Patient * [facility] Order Time Frame: 1 Week, Location: Determined By Patient * Referral to General Surgery Time Frame: 04/04/25, Location: None Selected [facility] Work Phone: 1(946) 670-697802-13-2023 Hospital Discharge instructionsAmbulatory Orders* Oncology Histology Time Frame: 1 Day, Location: Determined By Patient * Proceed with Treatment Time Frame: 08/19/22, Location: Determined By Patient * Proceed with Treatment Time Frame: 09/02/22, Location: Determined By Patient * [facility] Order Time Frame: 1 Week, Location: Determined By Patient [facility] Work Phone: 1(481) 963-611002-13-2023 Progress note Author Dayan Magallon [facility] August 19, 2022 11:20amNote Date/TimeFebruary 2022 11:14am[facility] [address] [address] Hem/Onc Follow Up Note - OP Signed Patient: Marysol Jacobson MR#: [id number] : 1965 Acct:[id number] Age/Sex: 57 / F Type: REG RCR Copies to: MD Clint Bernstein,DO~ Subjective Date/Time of Service: Date of Service: 08/19/2022 Time of Service: 11:12 Chief Complaint: Patient is here for a 1 month follow up with labs for review, prior to treatment today. No concerns voiced. 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 Labs reviewed on patient's chart from [place] - no significant cytopenias or electrolyte, renal/hepatic [...] 10 point review of systems is negative. [facility] - Medical History Medical History: [...] for coordination of care (as documented) and itml-jt-gpaq counseling of patient and/or family. Dictated By: Dayan Magallon APRN DD/ 111 Signed By: <Electronically signed by OLIVIA Magallon> 08/19/22 1120 [facility] Work Phone: 1(215) 707-824101-16-2023 Progress note Author Dayan Magallon [facility] July 22, 2022 11:46amNote Date/TimeJan2022 11:36[facility] [place] [address] Hem/Onc Follow Up Note - OP Signed Patient: Marysol Jacobson MR#: [id number] : 1965 Acct:[id number] Age/Sex: 57 / F Type: REG RCR Copies to: MD Clint Bernstein,DO~ Subjective Date/Time of Service: Date of Service: 07/22/2022 Time of Service: 11:34 Chief Complaint: Patient is here today for a one month follow up visit for coloncancer and go over labs. 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 Labs reviewed on patient's chart from [place] - no significant cytopenias or electrolyte, renal/hepatic [...] for coordination of care (as documented) and tsta-xn-xwdb counseling of patient and/or family. Dictated By: Dayan Magallon APRN DD/ 1134 Signed By: <Electronically signed by OLIVIA Hanley Bowen Sherita> 07/22/22 1146 [facility] Work Phone: 1(562) 238-607112-19-2022 Progress note Author Isaías Julian [facility] June 24, 2022 9:49amNote Date/TimeDecember 2021 9:42[facility] [place] [id number] Hem/Onc Follow Up Note - OP Signed Patient: Marysol Jacobson MR#: [id number] : 1965 Acct:[id number] Age/Sex: 57 / F Type: REG RCR [...] cotn folfox q2wks. f/u with me or geophysical operator in a month. cbc, cmp on treatemet days. cea prior to f/u. 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 Labs reviewed on patient's chart from [place] - no significant cytopenias or electrolyte, renal/hepatic [...] for coordination of care (as documented) and mnch-sf-mkic counseling of patient and/or family. [facility] - Medical History Medical History: [...] by Isaías Jordan II, DO> 06/24/22 0949 [facility] Work Phone: 1(204) 971-722611-28-2022 Progress note Author Dayan Balderramamercy hospital of coon rapidsivonne [facility] June 03, 2022 8:41amNote Date/TimeNov2021 8:14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 Labs reviewed on patient's chart from [place] - no significant cytopenias or electrolyte, renal/hepatic issues. - Summary of Therapies Summary of Therapies: FOLFOX chemotherapy (adjuvant) 1. Cycle 1, Day 1: 05/27/2022 Subjective/ROS - Narrative: As per the HPI, otherwise 10 point review of systems is negative. 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 - plan Cycle 2, [...] for coordination of care (as documented) and gypq-ua-mrxf counseling of patient and/or family. 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 She began having irregular bowel [...] for coordination of care (as documented) and pwev-ys-hkkr counseling of patient and/or family. 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 She began having irregular bowel [...] 13, 2022, scope could not be passed evggta53 cm due to a tumor in the [...] for coordination of care (as documented) and qtfg-sb-gzdy counseling of patient and/or family. PMFSH - Medical History Medical History: Medical [...] by Isaías Jordan II, DO> 05/03/22 1528 [facility] Work Phone: [phone] History general Narrative - Reported* Type Description Date Medical History Colon cancer Medical HistoryPelvic congestion syndromeSurgical HistoryBowel oeihkdpew60/2022 Surgical HistoryC -[id number] HistoryHernia [id number] History [place] teeth [employer] Other 09-07-2022 NoteOPERATIVE NOTE OPERATION DATE: 03/13/2022 [...] the abdomen and pelvis performed at the [facility], January 09, which was read as normal. [...] diagnosis, then she will need surgical therapy.[phone] NotePatient Education Materials Follows: Laceration Care, Adult [...] needed: ? Soap. ? Water. ? Hand insurance representative. ? Bandage (dressing). ? Antibiotic ointment. ? Clean towel. How to take care of your cut Wash your hands with soap and water before touching your wound or changing your bandage. If soap and water are not available, use hand insurance representative. If your doctor used stitches or yuridia: [...] off the skin. General instructions ? Take glbb-pjg-jnsnvpe and prescription medicines only as told by [...] anywhere on your body. (more content not included)...[facility] complaint+Reason for visit Narrative* Chief Complaint Admit Date Sore Throat/ENT Referral December 14, 2024 9:27am Reason for Visit Admit Date Pharyngitis, chronic December 14, 2024 9:2 7am [facility] Work Phone: Evaluation + Plan note No data available for this section [facility] evaluation note* Diagnosis Onset Date Resolution Status Colon cancer acuteEncounter for chemotherapy managementacute [facility] Work Phone: evaluation note* Diagnosis Onset Date Resolution Status Abnormal LFTs acuteChemotherapy-induced peripheral neuropathyacuteColon canceracuteEncounter for chemotherapy managementacute [facility] Work Phone: evalunnxqw noteNo assessment information available [facility] Work Phone: evaluation note* Diagnosis Onset Date Resolution Status Colon cancer acuteAbnormal LFTsacuteChemotherapy-induced peripheral neuropathyacuteColon canceracuteEncounter for chemotherapy managementacuteSalivary gland hypertrophy acute [facility] Work Phone: evaluation note* Diagnosis Onset Date Resolution Status Salivary gland hypertrophy acuteAbnormal LFTsacuteChemotherapy-induced peripheral neuropathyacuteColon canceracuteEncounter for chemotherapy managementacute [facility] Work Phone: evaluation note* Diagnosis History of colon cancer- Primary Personal history of malignant neoplasm of large intestine documented [facility] Diagnosis History of colon cancer- Primary Personal history of malignant neoplasm of large intestine documented in this encounter [facility]* Diagnosis History of removal of Urxo-r-Xrww- Primary History of colon cancer Personal history of malignant neoplasm of large intestine documented in this encounter [facility]* Diagnosis Onset Date Resolution Status Admit Date Pharyngitis, chronic acuteJun2024 9:27am [facility] Work Phone: Evaluation note* Diagnosis Globus sensation- Primary Gastrointestinal malfunction arising from mental factors LPRD (laryngopharyngeal reflux disease) Acute laryngitis, without mention of obstruction [facility] Diagnosis Onset Date Resolution Status Admit Date Abnormal LFTs acuteSeptember 2024 1:07pmChemotherapy-induced peripheral neuropathyacute March 21, 2025 1:07pmColon canceracuteSeptember 2024 1:07pmEncounter for chemotherapy managementacuteSeptember 2024 1:07pm [facility] Work Phone: Evaluation note* Diagnosis Onset Date Resolution Status Admit Date Abnormal LFTs acuteSept2024 1:09pmChemotherapy-induced peripheral neuropathyacute April 04, 2025 1:09pmColon canceracuteSeptember 2024 1:09pmEncounter for chemotherapy managementacuteSept2024 1:09pm [facility] Work Phone: Evaluation note* Diagnosis Onset Date Resolution Status Admit Date Abnormal LFTs acuteOctober 2024 11:32amChemotherapy-induced peripheral neuropathyacute May 05, 2025 11:32amColon canceracuteOctober 2024 11:32amEncounter for chemotherapy managementacuteOctober 2024 11:32amChemotherapy-induced peripheral neuropathyacuteOctober 2024 11:32amColon cancer metastasized to lungacuteOctober 2024 11:32amEncounter for chemotherapy managementacute May 05, 2025 11:32am [facility] Work Phone: Hospital Discharge instructionsAmbulatory Orders* Proceed with Treatment Time Frame: 08/19/22, Location: Determined By Patient [facility] Work Phone: Hospital Discharge instructionsAmbulatory Orders* Referral to ENT Time Frame: 11/17/23, Location: None Selected [facility] Work Phone: Hospital Discharge instructionsAmbulatory Orders* Referral to ENT Time Frame: 12/14/24, Location: None Selected [facility] Work Phone: Hospital Discharge instructions Additional [...] NOT operate machinery such as power tools, Copytelen mowers, snow blowers, sewing machines, etc. for [...] problems. -Follow up with PCP. -Office number [phone]. [facility] Work Phone: Hospital Discharge instructions No data available for this section [facility] InstructionsNot on filedocumented in this encounter [facility]Not on filedocumented in this encounter [facility]InstructionsNot on filedocumented in this encounter [facility] note Author Dayan Magallon [facility] June 03, 2022 8:41amNote Date/TimeNov2021 8:14[facility] [place] [address] Hem/Onc Follow Up Note - OP Signed Patient: Marysol Jacobson MR#: [id number] : 1965 Acct:[id number] Age/Sex: 57 / F Type: REG RCR [...] 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 Labs reviewed on patient's chart from [place] - no significant cytopenias or electrolyte, renal/hepatic issues. - Summary of Therapies Summary of Therapies: FOLFOX chemotherapy (adjuvant) 1. Cycle 1, Day 1: 05/27/2022 Subjective/ROS - Narrative: As per the HPI, otherwise 10 point review of systems is negative. 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 - plan Cycle 2, [...] for coordination of care (as documented) and tbtj-zm-kvun counseling of patient and/or family. Dictated By: Dayan Magallon APRN DD/ 3 Signed By: <Electronically signed by OLIVIA Magallon> 06/03/22840 [facility] Work Phone: Progress note Author Isaías Jordan [facility] June 24, 2022 9:49amNote Date/TimeDecemb2021 9:42[facility] [place] [address] Hem/Onc Follow Up Note - OP Signed Patient: Marysol Jacobson MR#: [id number] : 1965 Acct:[id number] Age/Sex: 57 / F Type: REG RCR [...] cotn folfox q2wks. f/u with me or geophysical operator in a month. cbc, cmp on treatemet days. cea prior to f/u. 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 Labs reviewed on patient's chart from [place] - no significant cytopenias or electrolyte, renal/hepatic [...] for coordination of care (as documented) and aful-ob-wznz counseling of patient and/or family. [facility] - Medical History Medical History: [...] by Isaías Jordan II, DO> 06/24/22 0949 [facility] Work Phone: Progress note Author Dayan Magallon [facility] July 22, 2022 11:46amNote Date/TimeJanuary 2022 11:36[facility] [place] [address] Hem/Onc Follow Up Note - OP Signed Patient: Marysol Jacobson MR#: [id number] : 1965 Acct:[id number] Age/Sex: 57 / F Type: REG RCR Copies to: MD Clint Bernstein,DO~ Subjective Date/Time of Service: Date of Service: 07/22/2022 Time of Service: 11:34 Chief Complaint: Patient is here today for a one month follow up visit for coloncancer and go over labs. 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 Labs reviewed on patient's chart from [place] - no significant cytopenias or electrolyte, renal/hepatic [...] 10 point review of systems is negative. [facility] - Medical History Medical History: [...] for coordination of care (as documented) and vuek-oq-muzu counseling of patient and/or family. Dictated By: Dayan Magallon APRN DD/ 1134 Signed By: <Electronically signed by OLIVIA Magallon> 07/22/22 1146 [facility] Work Phone: Progress note Author Isaías Jordan [facility] September 02, 2022 9:09amNote Date/TimeFebruary 2022 8:58[facility] [place] [address] Hem/Onc Follow Up Note - OP Signed Patient: Marysol Jacobson MR#: [id number] : 1965 Acct:[id number] Age/Sex: 57 / F Type: REG RCR [...] 4 or 6 weeks with me or geophysical operator. - History of Present Illness Chief Complaint: Patient is here for a 2 week follow up with outside labs for review, prior to treatment today. States she is feeling remarkably better. 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 Labs reviewed on patient's chart from [place] - no significant cytopenias or electrolyte, renal/hepatic [...] for coordination of care (as documented) and ymhd-io-gqix counseling of patient and/or family. [facility] - Medical History Medical History: [...] Dictated By: Isaías Jordan II, DO DD/ 08 Signed By: <Electronically signed by Isaías Jordan II, DO> 09/02/22 0909 [facility] Work Phone: Progress note Author Isaías Jordan [facility] January 19, 2024 12:05pmNote Date/TimeJuly 2023 11:20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 Labs reviewed on patient's chart from [place] - no significant cytopenias or electrolyte, renal/hepatic [...] from visiting her mother and family in [place]. She has no neuropathy at all. last [...] Also engorged periuterine vessels. She has seen managing supervisor. she hadtransvaginal ultrasound. This will be monitored. Her GUEST RELATIONS ASSOCIATE has offered her a dexa scan. Her [...] january with no evidence recurrence. [place] Intake Vitals/Pain Assessment 01/19/24 11:22 Height 5 [...] latanoprost 0.005% 1 drp Eye-Both QPM omega 4-uzt-reh-fish oil 300-1,000 mg (Fish Oil) 1 cap [...] No concerns voiced at time of intake. [facility] History Attestation statement: The following information was validated with the patient. Medical History Medical History delivery delivered Colon cancer Cancer (03/26/22) COVID bleeding Glaucoma of both eyes Surgical History Surgical History [place] teeth extracted S/P hernia repair History of [...] by Isaías Jordan II, DO> 01/19/24 1205 [facility] Work Phone: Progress note No data available for this section [facility] Reason for referral (narrative)No reason for referral [facility] Work Phone: Summary Purpose Family [...] 1:19 pm Encounter for chemotherapy management [facility] 2024 1:19pm Chief Complaint Admit Date [...] for chemotherapy management Se ptember 2024 1:09pm Chief Complaint Admit Date Follow Up 6 Months March 21, 2025 1:06pm Follow Up after PET and Biopsy April 04, 2025 1:09pm tox check May 05, 2025 1 1:32am Reason for Visit Admit Date Abnormal LFTs May 05, 2025 1 1:32am Chemotherapy-induced peripheral neuropat hy May 05, 2025 11:32am Colon cancer May 05, 2025 1 1:32am Encounter for chemotherapy management [facility] to[facility] 2024 11:32am Colon cancer metastasized to lung Octobe r 2024 11:32am Additional Source Comments INFORMATION SOURCE (unrecogn ized section and content) DATE CREATED AUTHOR 05/02/2021 [facility] DATE CREATED AUTHOR AUTHOR'S ORGANIZ ATION 11/17/2022 [facility] DATE CREATED AUTHOR AUTHOR'S ORGANIZ ATION 03/27/2024 [facility] DATE CREATED AUTHOR AUTHOR'S ORGANIZ ATION 12/23/2024 [facility] DATE CREATED AUTHOR AUTHOR'S ORGANIZ ATION 04/14/2025 [facility] DATE CREATED AUTHOR AUTHOR'S ORGANIZ ATION 05/08/2025 [facility] DATE CREATED AUTHOR AUTHOR'S ORGANIZ ATION 05/12/2025 [facility] Care Teams (unrecognized sec tion and content) Team Status: Active Member Role Status Dates Sandro Chin MD Primary Care Provider Active Team Status: Active Member Role Status Dates Sandro Chin MD Primary Care Provider Active Start: December 25, 2024 Sandro Chin , MDAttending ProviderActiveStart: December 25, 2024 Team Status: Active Member Role Status Dates Sandro Chin MD Primary Care Provider Active Start: February 01, 2025 Roz L Ly , DOAttending ProviderActiveStart: February 01, 2025 Roz L Ly , DOOther ProviderActiveStart: February 01, 2025 Team Status: Active Member Role Status Dates Isaías Jordan II, DO Attending Provider Active Start: March 17, 2025 DIANA Bernsteinrirandy Care ProviderActiveStart: March 17, 2025 Team Status: [...] DIANA Bernsteinrirandy Care ProviderActiveStart: March 21, 2025 Asha Delaney ProviderActiveStart: March 21, 2025 Team Status: Inactive [...] II, DO ActiveStart: January 19, 2024 LUIS Changeferring ProviderActiveStart: January 19, 2024 DIANA Bernsteinristephaniey Care ProviderActiveStart: January 19, 2024 Asha Delaney ProviderActiveStart: January 19, 2024 Team Status: Inactive [...] Start: September 26, 2023 End: September 26, 2023Stephaniesamantha Chanelle Truner , APRNAttending ProviderActive Start: September 26, 2023 End: September 26, 2023 Team Status: Active Member Role Status Dates Isaías Jordan II, DO ActiveStart: September 26, 2023 Clint Jean Baptiste , DOReferring ProviderActiveStart: September 26, 2023 Sandro Chin , MDPrimary Care ProviderActiveStart: September 26, 2023 KristinaChanelle Turner , APRNAttending ProviderActiveStart: September 26, 2023 Team Status: Inactive Member Role Status Dates Isaías Jordan II, DO Attending Provider Active Team Status: Active Member Role Status Dates Isaías Jordan II, DO Attending Provider Active Clint Jean Baptiste , LUISeferring ProviderActiveMaryordy Chin , MDPrimary Care ProviderActive Team Status: Inactive Member Role Status Dates Isaías Jordan II, DO Attending Provider Active NON STAFFPrimary Care ProviderActive Team Status: Active Member Role Status Dates NON STAFF Primary Care Provider Active Team MemberRelationshipSpecialtyStart DateEnd Date Sandro Chin MD [address] [id number] PCP - GeneralFamily Medicine03/19/23Team MemberRelationshipSpecialtyStart DateEnd Date Sandro Chin MD [address] [id number] PCP - GeneralFamily Medicine03/19/23 Team Status: Inactive Member Role Status Dates [...] Baptiste , LUISeferring ProviderActiveStart: September 06, 2024 DIANA [facility] Care ProviderActiveStart: September 06, 2024 Kristina Demboske , APRNAttending ProviderActiveStart: September 06, 2024 Team Status: Inactive Member Role Status Dates Sandro Chin MD Primary Care Provide r, Attending Provider Active Start: December 14, 2024 End: December 14, 2024Team MemberRelationshipSpecialtyStart DateEnd Date Sandro Chin MD [address] [phone] [facility]12/14/24Team MemberRelationshipSpecialtyStart DateEnd Date Sandro Chin MD [address] [place] [address] [facility]12/14/24 Team Status: Inactive Member Role Status Dates Sandro Chin MD Primary Care Provider Active Start: December 14, 2024 End: December 14, 2024Sandro Chin MDAttending ProviderActiveStart: December 14, 2024 End: December 14, 2024 Team Status: Inactive Member Role Status Dates Sandro Chin MD Primary Care Provider Active Start: December 20, 2024 End: December 20, 2024Sandro Chin MDAttvaleria ProviderActiveStart: December 20, 2024 End: December 20, 2024Team MemberRelationshipSpecialtyStart [place] [address] [place] [address] [place] [address] [facility]/24 Team Status: Inactive Member Role Status Dates Sandro Chin MD Primary Care Provider Active Start: April 04, 2025 End: April 04, 2025Isaías Jordan II, DOAttending ProviderActive Start: April 04, 2025 End: April 04, 2025Jose Bernstein Care ProviderActiveStart: April 04, 2025 Team Status: Active Member Role/Relationship Status Dates Sandro Chin MD Primary Care Provider Active Team Status: Active Member Role/Relationship Status Dates Isaías Jordan II, DO Attending Provider Active Start: March 17, 2025 Jose Bernstein Care ProviderActiveStart: March 17, 2025 Team Status: Inactive Member Role/Relationship Status Dates Sandro Chin MD Primary Care Provider Active Start: March 21, 2025 End: March 21, 2025Isaías Jordan II, DOAttending ProviderActive Start: March 21, 2025 End: March 21, 2025 Team Status: Inactive Member Role/Relationship Status Dates Sandro Chin MD Primary Care Provider Active Start: April 04, 2025 End: April 04, 2025Isaías Jordan II, DOAttending ProviderActive Start: April 04, 2025 End: April 04, 2025 Team Status: Active Member Role/Relationship Status Dates Sandro Chin MD Primary Care Provider Active Start: April 08, 2025 Outside ProviderAttending ProviderActiveStart: April 08, 2025 Team Status: Active Member Role/Relationship Status Dates Sandro Chin MD Primary Care Provider Active Start: April 23, 2025 Isaías Jordan II DOAttending ProviderActiveStart: April 23, 2025 Team Status: Active Member Role/Relationship Status Dates Isaías J Adamowicz II, DO Attending Provider Active Start: May 04, 2025 Jose Bernstein Care ProviderActiveStart: May 04, 2025 Team Status: Inactive Member Role/Relationship Status Dates Sandro Chin MD Primary Care Provider Active Start: May 05, 2025 End: May 05, 2025Asha Deleon ProviderActiveStart: May 05, 2025 End: May 05, 2025Jose Bernstein Care ProviderActiveStart: May 05, 2025 Team MemberRelationshipSpecialtyStart DateEnd Date Sandro Chin MD [address] [place] [address] PCP - GeneralFamily Medicine12/14/24 Goals (unrecognized section and content) Goals may [...] alternate section No data available for this sectionGoals may be documented in an alternate [...] ContactOtolaryngology Diagnoses Other seasonal allergic rhinitis Procedures NM UNLISTED EVALUATION AND MANAGEMENT SERVICE [facility] [address] [place] [address] Phone: tel: fax: Constantino Martinez MD [address] [facility] [address] [place] [address] Phone: tel: fax: Referral IDStatusReasonStart DateExpiration DateVisits RequestedVisits [id number] FOR RECORDS PERTAINING TO PATIENTS WHO ARE [...] BE BASED ON THE PRIMARY CLINICAL RECORDS. [employer] [facility]. provides no warranty or guarantee of the accuracy or completeness of information in this document.
--- OUTSIDE RECORDS SUMMARY | 2025-05-21 11:46 | XMS_ITS | Clinical Summary ---
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 Name Role Phone Melissa Worthy MD Primary Care Provider [phone] Allergies Active AllergyReactionsCriticalityNoted DateCommentsCodeineGI Disturbance 02/19/2023HydrocodoneNausea And BebryahwCshq79/15/2022 Patient reports it was many years ago Medications MedicationSigDispense QuantityRefillsLast FilledStart DateEnd DateStatus latanoprost (XALATAN) 0.005 % ophthalmic solution Administer 0.005 drops to both eyes nightly.12/22/2021ctive dorzolamide-timoloL (COSOPT) 22.3-6.8 mg/mL ophthalmic solution Administer 6.8 drops to both eyes in the morning and at bedtime.02/06/2022ctive brimonidine (ALPHAGAN) 0.2 % ophthalmic solution Administer 0.2 drops to both eyes in the morning and at bedtime.01/20/2022ctive mv-mn/om3/dha/epa/fish/lut/katheryn (OCUVITE ADULT 50 PLUS ORAL) Take by mouth daily.Active cholecalciferol, vitamin D3, (VITAMIN D3 ORAL) Take 1,000 mg by mouth.Active celecoxib (CeleBREX) 200 mg capsule TAKE 1 CAPSULE BY MOUTH ONCE DAILY QOQWJB9302/19/2023ctive omeprazole (PriLOSEC) 20 mg capsule PATIENT REPORTS NEEDED 01/16/2023ctive omega 6-bbd-uyf-fish oil (Fish OiL) 300-1,000 mg capsule Take by mouth.Active glucosamine-chondroitin 500-400 mg tablet Take 1 tablet by mouth 3 (three) times a day.Active Active Problems ProblemNoted DateDiagnosed DateFemale pelvic congestion xibgkzvp86/17/2023 Glaucoma of both eyes05/15/2022ostpartum rdpedxvu04/09/2022 Encounters DateTypeDepartmentCare LrqxXucmzotjpsx10/06/2025Telephone [facility] [address] [address] Yoselin Lo RMA from Last 3 Months Family History Medical HistoryRelationNameCommentsHypertensionFatherParkinsonismFatherBreast cancerMaternal AuntDementiaMotherDiabetesMotherHypertensionMotherRelationName StatusCommentsFatherDeceasedMaternal AuntDeceasedMotherAlive Social History Tobacco UseTypesPacks/DayYears UsedDateSmoking Tobacco: FormerCigarettes Smokeless Tobacco: Never Tobacco Cessation:Counseling Given: Not Answered Comments:smoked when patient was 18 for 6 months Alcohol UseStandard Drinks/WeekCommentsYes0 (1 standard drink = 0.6 oz pure alcohol)occasionallyHunger ScreeningAnswerDate RecordedWithin the past 12 months we worried whether our food would run out before we got money to buy more.Never True03/25/2024Food Insecurity - InabilityNot on file03/25/2024Comments UnknownSex and Gender InformationValueDate RecordedSex Assigned at BirthNot on fileLegal ZhkKmhuxe59/08/2022 3:24 PM EDTGender IdentityNot on fileSexual OrientationNot on file Last Filed Vital Signs Vital SignReadingTime TakenCommentsBlood Guxnulkp443/6009 11:29 AM EDT Cmkkw0797 11:29 AM UOXZtgsoyufwfp90.2 ??C (97.1 ??F)06/07/2022 10:01 AM ESTRespiratory Rate--Oxygen Saturation--Inhaled Oxygen Concentration--Hjaoep30.7 kg (160 lb 3.2 oz)03/25/2024 11:29 AM OMDInyhqi300.6 cm (5' 4 )03/25/2024 11:29 AM EDTBody Mass Index27.509 11:29 AM EDT Plan of Treatment Health MaintenanceDue DateLast DoneCommentsDepression Zctqrfimk09/28/1978 DTaP,Tdap and Td Vaccines (1 - Tdap)1985Pap Smear1987Zoster (Shingles) Vaccine (1 of 2)2016COVID-19 Vaccine ( - season) , 04/27/2021, 08/02/2020, Additional history existsInfluenza Vnppgje6103/07/2025dult BMI Vdyflbdoh76/Tobacco Screening olonoscopy/07/2022, 03/13/2022 Medical Devices Not on file Procedures Procedure NamePriorityDate/TimeAssociated DiagnosisCommentsCOLONOSCOPYRoutine 05/07/2023 Primary malignant neoplasm of sigmoid colon (CMS-HCC) from Last 3 Months or Most Recently Relevant to Health Maintenance Results * Colonoscopy (05/07/2023) Narrative Authorizing ProviderResult TypeResult StatusMichael Klever JIMENEZ PROCEDURE ORDERABLESFinal ResultPerforming OrganizationAddressCity/State/ZIP CodePhone Number MANUALLY TRANSCRIBED RESULTS from Last 3 Months or Most Recently Relevant to Health Maintenance Insurance Care Teams Team MemberRelationshipSpecialtyStart DateEnd Date Melissa Worthy MD [address] [place] [address] PCP - GeneralFamily Medicine03/19/23
--- OUTSIDE RECORDS SUMMARY | 2025-05-21 11:46 | XMS_ITS | Encounter Summary ---
Author Organization [facility] Address [address] [place] [address] Care Team Providers Care Tube Winder Name Role Phone Melissa Worthy MD Primary Care Provider [phone] Encounter Details DateTypeDepartmentCare Team (Latest Contact Info)Dhkqlnbkenc11/03/2025External Result Encounter [facility] Unsolicited Timmy Jordan, DO [address] [place] [address] Social History Tobacco UseTypesPacks/DayYears UsedDateSmoking Tobacco: NeverSmokeless Tobacco: NeverAlcohol UseStandard Drinks/WeekCommentsYes0 (1 standard drink = 0.6 oz pure alcohol)occCommentsUnknownSex and Gender InformationValueDate Recorded Sex Assigned at BirthNot on fileLegal AysCksemq20/15/2023 7:32 PM EDTGender IdentityNot on fileSexual OrientationNot on filedocumented as of this encounter Plan of Treatment Not on file documented as of this encounter Procedures Procedure NamePriorityDate/TimeAssociated DiagnosisCommentsTOTAL PROTEIN, URINE Zawapsr8005/09/2025 3:13 PM EST CREATININE, RANDOM YSTWXMxepnui28/03/2025 3:13 PM EST documented in this encounter Results * TOTAL PROTEIN, URINE (05/09/2025 3:13 PM EST)ComponentValueRef RangeTest MethodAnalysis TimePerformed AtPathologist SignatureTOTAL PROTEIN, URINE<40 - 9 mg/dL05/09/2025 4:07 PM [facility]trSpec[facility] (Source) Anatomical Location / LateralityCollection Method / VolumeCollection Time Received BfkiYzpaw49/03/2025 3:13 PM EST05/09/2025 3:23 PM EST Narrative Authorizing ProviderResult TypeResult StatusTimevangelina Jordan DOLAB BLOOD ORDERABLESFinal ResultPerforming OrganizationAddressCity/State/ZIP CodePhone Number [facility] [address] [place] [address], [facility] [address] [place] [address] * Creatinine, urine, random (05/09/2025 3:13 PM EST)ComponentValueRef RangeTest MethodAnalysis TimePerformed AtPathologist SignatureCREATININE, URINE (RANDOM) 11.00mg/dL05/09/2025 4:03 PM [facility] CtrComment:No reference range establishedSpecimen (Source)Anatomical Location / Laterality Collection Method / VolumeCollection TimeReceived ZapvBqykx75/03/2025 3:13 PM EST05/09/2025 3:23 PM EST Narrative Authorizing ProviderResult TypeResult StatusTimevangelina Jordan DOLAB URINE ORDERABLESFinal ResultPerforming OrganizationAddressCity/State/ZIP CodePhone Number [facility] [address] [place] [address], [facility] [address] [place] [address] documented in this encounter Visit Diagnoses Not on filedocumented in this encounter Care Teams Team MemberRelationshipSpecialtyStart DateEnd Date Melissa Worthy MD [address] [place] [address] PCP - GeneralFamily Medicine12/14/24documented as of this encounter
--- OUTSIDE RECORDS SUMMARY | 2025-05-21 11:47 | XMS_ITS | Clinical Summary ---
Author Organization [facility] Address [address], [address] [place] [address] Care Team Providers Care Cake Winder Name Role Phone Melissa Worthy MD Primary Care Provider [phone] Allergies Active AllergyReactionsCriticalityNoted DateCommentsCodeineOther (See Comments) 02/19/2023 Other Reaction(s): GI Disturbance HydrocodoneNausea And IfsggipqDapf72/15/2022 Patient reports it was many years ago Other Reaction(s): Nausea, Nausea And Vomiting Patient reports it was many years ago Medications MedicationSigDispense QuantityRefillsLast FilledStart DateEnd DateStatus Cholecalciferol (VITAMIN D3 PO) Take 1,000 mg by mouthActive brimonidine (ALPHAGAN) 0.2 % ophthalmic solution INSTILL 1 DROP INTO EACH EYE TWICE DAILY GBSNWKPN20/03/2025Active dorzolamide-timolol (COSOPT) 2-0.5 % ophthalmic solution INSTILL 1 DROP INTO EACH EYE TWICE DAILY DIRECTEDActive latanoprost (XALATAN) 0.005 % ophthalmic solution INSTILL 1 DROP INTO EACH EYE IN THE EVENING DNRCMDMI45/19/2024Active ondansetron (ZOFRAN) 8 MG tablet Take 1 tablet by mouth every 8 hours as neededActive pantoprazole (PROTONIX) 40 MG tablet Take 1 tablet by mouth dailyActive BETA GLUCAN PO Take by mouthActive Active Problems ProblemNoted DateDiagnosed DateLung xntwas0504/12/2025 Encounters DateTypeDepartmentCare VrmjXjqrohpebmt73/07/2025Post-op Telephone [facility] Special Procedure [address] [place] [address] [phone] Tereza Hernandez RN 04/11/2025 3:58 PM EDT - 04/13/2025 11:59 PM EDTHospital Encounter [facility] Radiology [address] [place] [address] Discharge Disposition: Home or Self Care04/11/2025 1:00 PM EDT - 04/13/2025 11:59 PM EDTHospital Encounter [facility] CT Scan [address] [place] [address] Ender Sanchez MD Lung nodule Discharge Disposition: Home or Self Care04/11/2025Orders Only [facility] Vascular and Interventional Radiology [address] [place] [address] [place] [address] Arielle Daly MA Pre-operative laboratory examination; Lung fmggrt3604/08/2025Telephone [facility] Special Procedure [address] [place] [address] Cynthia Gallagher RN 04/06/2025 11:30 AM EDTOffice Visit [facility] Vascular and Interventional Radiology [address] [place] [address] Steph Casiano PA-C Pre-operative laboratory examination (Primary Dx); Lung nodule; Malignant neoplasm of colon, unspecified part of colon (HCC)04/06/2025Telephone [facility] Vascular and Interventional Radiology [address] [place] [address] Ender Sanchez MD Cdsgzjtqd82/23/2025bstract [facility] Pulmonology [address] [address] Ender Sanchez MD from Last 3 Months Social History Tobacco UseTypesPacks/DayYears UsedDateSmoking Tobacco: Never Assessed CommentsUnknownSex and Gender InformationValueDate RecordedSex Assigned at Qekboo7704/10/2025 7:32 PM EDTLegal GbdAkodhi26/23/2025 3:06 PM EDTGender Identity Lxyjix0104/10/2025 7:32 PM EDTSexual IxokuclfuzeUtcdjveb73/05/2025 7:32 PM EDT Last Filed Vital Signs Vital SignReadingTime TakenCommentsBlood Zmbfcemd085/7204/11/2025 3:45 PM EDT Fazyl369804/11/2025 3:45 PM ZVNLkmpshjsagz59.8 ??C (98.3 ??F)04/11/2025 1:30 PM EDTRespiratory Poek164904/11/2025 3:45 PM EDTOxygen Kdeuevqdfp40%04/11/2025 3:45 PM EDTInhaled Oxygen Concentration--Wxnyuk73.2 kg (157 lb)04/11/2025 1:30 PM EDT Ouloyc454.6 cm (5' 4 )04/11/2025 1:30 PM EDTBody Mass Index26.9504/11/2025 1:30 PM EDT Plan of Treatment Health MaintenanceDue DateLast DoneCommentsDepression Sxqiru6904/03/1978HIV screen 1981Hepatitis C aokfdj8204/03/1984DTaP/Tdap/Td vaccine (1 - Tdap)1985 Hepatitis B vaccine (1 of 3 - 19+ 3-dose series)1985Pap smear1987 Cervical cancer jpaoty5104/03/1996HPV (without or with Pap)1996Diabetes ahquil6804/03/2001Breast cancer knqeil1704/03/20068759Pyippb74/28/2006Colonoscopy 2011Colorectal Cancer Ixgsqi4104/03/2011FIT/FOBT: Average risk2011 Fecal-DNA (Cologuard): Average risk2011Sigmoidoscopy/CT colonography 2011Pneumococcal 50+ years Vaccine (1 of 1 - PCV)2016Shingles vaccine (1 of 2)2016Flu vaccine (#1)/4COVID-19 Vaccine (2 - season)/04/2022Hepatitis A vaccineAged OutNo longer eligible based on patient's age to complete this topicHib vaccineAged OutNo longer eligible based on patient's age to complete this topicMeningococcal (ACWY) vaccineAged OutNo longer eligible based on patient's age to complete this topicMeningococcal B vaccineAged OutNo longer eligible based on patient's age to complete this topicPolio vaccineAged OutNo longer eligible based on patient's age to complete this topic Procedures Procedure NamePriorityDate/TimeAssociated DiagnosisCommentsXR CHEST (2 VW) Meoesbs9204/11/2025 4:[address] NEEDLE BIOPSY LUNG PERCUTANEOUS W IMAGING UXHJZUKJFiblxij70/06/2025 2:54 PM EDT Lung nodule SURGICAL DRPJABMXPRGRM36/06/2025 9:39 AM EDT from Last 3 Months Results * XR CHEST (2 VW) (04/11/2025 4:06 PM EDT)Anatomical RegionLateralityModality ChestComputed RadiographySpecimen (Source)Anatomical Location / Laterality Collection Method / VolumeCollection TimeReceived KrmzIxxop89/06/2025 4:08 PM EDT Impressions 04/11/2025 4:08 PM EDT 1. No evidence of pneumothorax or pleural effusion. 2. ??Again seen are bilateral pulmonary nodules. COMPARISON: No prior studies available for comparison. DIAGNOSIS: post right upper lobe lung biopsy COMMENTS: Reason for exam:->post right upper lobe lung biopsy TECHNIQUE: XR CHEST (2 VW) FINDINGS: Again seen are bilateral pulmonary nodules. No evidence of pneumothorax. No evidence of pleural fluid. ??Cardiac silhouette is normal in size. ??Visualized soft tissues, and osseous structures are unremarkable. Electronically signed by Ender Sanchez Narrative Procedure Note Ender Sanchez MD - 04/11/2025 IMPRESSION: 1. No evidence of pneumothorax or pleural effusion. 2. Again seen are bilateral pulmonary nodules. COMPARISON: No prior studies available for comparison. DIAGNOSIS: post right upper lobe lung biopsy COMMENTS: Reason for exam:->post right upper lobe lung biopsy TECHNIQUE: XR CHEST (2 VW) FINDINGS: Again seen are bilateral pulmonary nodules. No evidence of pneumothorax.No evidence of pleural fluid. Cardiac silhouette is normal in size.Visualized soft tissues, and osseous structures are unremarkable. Electronically signed by Ender Sanchez Authorizing ProviderResult TypeResult StatusCharsen RAMOS DIAGNOSTIC IMAGING ORDERABLESFinal Result * CT NEEDLE BIOPSY LUNG PERCUTANEOUS (04/11/2025 2:54 PM EDT)Anatomical Region LateralityModalityChestComputed TomographySpecimen (Source)Anatomical Location / LateralityCollection Method / VolumeCollection TimeReceived Time04/12/2025 1:43 PM EDT Impressions 04/12/2025 1:45 PM EDT 1. Successful core biopsy of right upper lobe anterior pulmonary nodule. 2. ??Blood patch was injected after biopsy for pneumothorax prevention. HISTORY: MARYSOL GARDNER is a Female of 60 years age. DIAGNOSIS: ??Solitary pulmonary nodule COMPARISON: None available. CT Dose-Length Product (estimate related to radiation exposure from this exam): 384.17 mGy*cm. PROCEDURE: Following the discussion of the procedure, alternatives, risks versus benefits, informed consent was obtained from the patient. ??Specifically, risks of after-biopsy pain at the site, rare possibility of excessive hemorrhage, infection, injury to the adjacent organs were discussed and the patient verbalized understanding. Pre-procedure evaluation confirmed that the patient was an appropriate candidate for conscious sedation. Adequate sedation was maintained during the entire procedure. ??Vital signs, pulse oximetry, and response to verbal [...] placed on the CT table in supine ??position and the right anterolateral chest wall area was prepped and draped in usual sterile fashion. Using the usual sterile conditions, lidocaine and CT guidance, the right upper lobe pulmonary nodule was accessed using an 20-guage coaxial biopsy needle system. ??After confirmation of appropriate localization of the needle, total of 2 samples were obtained and sent for pathological analysis. Blood patch was injected through the coaxial needle for pneumothorax prevention. The coaxial needle system was removed and hemostasis was achieved by direct digital compression. ??The patient tolerated the procedure well. ??No immediate complications identified. ??The patient left the CT suite in supine position to the recovery room in stable condition. Total local anesthetic used: lidocaine, approximately 8 mL. Estimated blood loss: Negligible. The patient was observed in the recovery room for two hours after the procedure and discharged in stable condition. Electronically signed by Ender Sanchez Narrative Procedure Note Ender Sacnhez MD - 04/12/2025 IMPRESSION: 1. Successful core biopsy of right upper lobe anterior pulmonarynodule. 2. Blood patch was injected after biopsy for pneumothorax prevention. HISTORY: MARYSOL GARDNER is a Female of 60 years age. DIAGNOSIS: Solitary pulmonary nodule COMPARISON: None available. CT Dose-Length Product (estimate related to radiation exposure from thisexam): 384.17 mGy*cm. PROCEDURE: Following the discussion of the procedure, alternatives, risks versusbenefits, informed consent was obtained from the patient. Specifically, risks of after-biopsy pain at the site, rare possibility of excessive hemorrhage, infection, injury to the adjacent organs were discussed and the patient verbalized understanding. Pre-procedure evaluation confirmed that the patient was an appropriatecandidate for conscious sedation. Adequate sedation was maintained during the entire procedure.Vital signs, pulse oximetry, and response to verbal commands were monitored and recorded bythe nurse throughout the procedure and the recovery period. Medical information was entered inthe medical record including the medications and dosages used. The patient returned to baseline neurologicand physiologic status prior to leaving the department. No immediate sedation relatedcomplications were noted. Medication for conscious sedation was administered via IV route. 45 minutes ofconscious sedation was provided. Following universal protocol, patient and site verification was performedwith a timeout prior to the procedure. The patient was placed on the CT table in supine position and the right anterolateral chest wall area was prepped and draped in usual sterilefashion. Using the usual sterile conditions, lidocaine and CT guidance, the rightupper lobe pulmonary nodule was accessed using an 20-guage coaxial biopsyneedle system. After confirmation of appropriate localization of the needle,total of 2 samples were obtained and sent for pathological analysis. Blood patchwas injected through the coaxial needle for pneumothorax prevention. Thecoaxial needle system was removed and hemostasis was achieved by direct digital compression. The patient tolerated the procedure well. No immediate complications identified. The patient left the CT suite in supineposition to the recovery room in stable condition. Total local anesthetic used: lidocaine, approximately 8 mL. Estimated blood loss: Negligible. The patient was observed in the recovery room for two hours after theprocedure and discharged in stable condition. Electronically signed by Ender Sanchez Authorizing ProviderResult TypeResult StatusOlivipatricio Casiano [facility] ORDERABLES Final Result * Surgical Pathology (04/11/2025 9:39 AM EDT)Specimen (Source)Anatomical Location / LateralityCollection Method / VolumeCollection TimeReceived Time 04/11/2025 9:39 AM EDT1 9:39 AM EDT [facility] - 04/14/2025 12:54 PM EDT [facility] ? [address] ? [place], [place] ??[address] ? [phone] FINAL SURGICAL PATHOLOGY REPORT Patient Name: ??MARYSOL GARDNER ?Accession No: ??[id number] Age Sex: ?? 1965 ? Location: ?DIS Account No: ?[id number] ?Collected: ? 04/11/2025 Med Rec No: ?[id number] ? Received: ?04/12/2025 Attend Phys: ?? ENDER SANCHEZ ?Completed: ? 04/14/2025 Perform Phys: ??ISAÍAS GARCIA FINAL DIAGNOSIS: RIGHT UPPER LOBE LUNG BIOPSY: ADENOCARCINOMA COMMENT: IMMUNOHISTOCHEMICAL STAINING SHOWS THAT THE TUMOR CELLS ARE POSITIVE FOR CDX2 AND CK20. ??THE TUMOR CELLS ARE NEGATIVE FOR TTF-1. ??ALL STAINS ARE PERFORMED IN ASSOCIATION WITH APPROPRIATE CONTROLS. ??IN CONJUNCTION WITH THE CLINICAL HISTORY AND MORPHOLOGY, THE STAINING PATTERN IS MORE CONSISTENT WITH A COLORECTAL PRIMARY THAN A LUNG PRIMARY. CLINICAL CORRELATION IS NECESSARY. JACFL/JACFL CLINICAL INFORMATION: Results to Dr. Garcia. Right upper lobe lung nodule. SPECIMEN: Right Upper Lobe Lung GROSS DESCRIPTION: Received in formalin labeled with the patient's name and designated right upper lobe lung nodule biopsy is a solitary core of miles tissue, measuring 8 mm in length and 1 mm in diameter. ??The core is white, and is submitted in toto in one cassette. ??All of the fixative is also strained through the biopsy bag where the core is present. ?[facility] CPT: 16236 X1 ?? [id number] X2 ?? 33385 X1 Arnel DONNELLY M.D. ??04/14/2025 Electronically signed out by ? Page 1of 1 Authorizing ProviderResult TypeResult StatusTimevangelina Garcia PATHOLOGY/CYTOLOGY ORDERABLESFinal ResultPerforming OrganizationAddress City/State/ZIP CodePhone Number [facility] [address] [place] [address], [facility] [phone] from Last 3 Months Insurance Care Teams Team MemberRelationshipSpecialtyStart DateEnd Date Melissa Worthy MD [address] [place] [address] [facility] - [facility] Ixonuxfg05/6/25
--- OUTSIDE RECORDS SUMMARY | 2025-05-21 11:47 | XMS_ITS | Clinical Summary ---
Author Organization [facility] Healthcare Address [address] [place] [address] Care Team Providers Care Swimming Professor Name Role Phone Melissa Worthy MD Primary Care Provider [phone] Allergies Active AllergyReactionsCriticalityNoted DateCommentsCodeineGI intolerance 02/19/20235597WjhbfcuzdqlDmza59/15/2022 Other Reaction(s): Nausea, Nausea And Vomiting Patient reports it was many years ago Medications MedicationSigDispense QuantityRefillsLast FilledStart DateEnd DateStatus ondansetron (Zofran) 8 MG tablet Take 8 mg by mouth every 8 (eight) hours if needed for nauseaActive latanoprost (Xalatan) 0.005 % ophthalmic solution INSTILL 1 DROP INTO EACH EYE IN THE EVENING AWKBJWPI05/19/2024Active dorzolamide-timolol (Cosopt) 2-0.5 % ophthalmic solution INSTILL 1 DROP INTO EACH EYE TWICE DAILY BKIORARV07/09/2025Active brimonidine (AlphaGAN P) 0.2 % ophthalmic solution INSTILL 1 DROP INTO EACH EYE TWICE DAILY ZBRGJFLU27/03/2025Active loratadine (Claritin) 10 MG tablet Daily5Active pantoprazole (ProtoNix) 40 MG EC tablet Daily5Active omega-3 1000 MG capsule capsule Take by mouth4Active famotidine (Pepcid) 20 MG tablet Indications:LPRD (laryngopharyngeal reflux disease)Take 1 tablet (20 mg) by mouth at bedtime 90 tablet 5Active Active Problems ProblemNoted DateDiagnosed DateAbnormal LFTs12/20/2024hemotherapy-induced peripheral xbqzwodpcd86/16/2025Colon ceqido7212/20/2024Encounter for chemotherapy /16/4149Aenvhbgawqxpcj48/16/2025Pharyngitis, dpzdzpl9612/20/2024 Salivary gland zslowphwtri78/16/2025Situational stmqoky0312/20/2024Female pelvic congestion ahixwdrk22/17/2023laucoma of both eyes05/15/2022ostpartum bleeding ([facility])05/15/2022 Encounters DateTypeDepartmentCare RacoRvaxuqoiigc36/03/2025External Result Encounter [facility] External Department Unsolicited Timmy Jordan, DO 03/30/2025External Result Encounter [facility] External Department Unsolicited Timmy Jordan, DO 03/30/2025External Result Encounter [facility] External Department Unsolicited Carlyn Turner NP from Last 3 Months Social History Tobacco UseTypesPacks/DayYears UsedDateSmoking Tobacco: NeverSmokeless Tobacco: Never Tobacco Cessation:Counseling Given: Not Answered Alcohol UseStandard Drinks/WeekCommentsYes0 (1 standard drink = 0.6 oz pure alcohol)occCommentsUnknownSex and Gender InformationValueDate Recorded Sex Assigned at BirthNot on fileLegal WgkFtetkc53/15/2023 7:32 PM EDTGender IdentityNot on fileSexual OrientationNot on file Last Filed Vital Signs Vital SignReadingTime TakenCommentsBlood Vhqleqyw140/5851312/21/2024 8:32 AM EDT Ipgmc813612/21/2024 8:32 AM EDTTemperature--Respiratory Rate--Oxygen Saturation-- Inhaled Oxygen Concentration--Kjsmct32.1 kg (159 lb)12/21/2024 8:32 AM EDTHeight 162.6 cm (5' 4 )02/19/2023 11:44 AM EDTBody Mass Index27.29002/19/2023 11:44 AM EDT Plan of Treatment Health MaintenanceDue DateLast DoneCommentsCT Hhxwmecvtbyf1966FIT-DNA 1966FIT1966FOBT1966 2080Vvluxwnwbygse1966Pap Smear09/ Cervical Cancer Pauhyvpqu72/28/1996HPV/Rhtftg2704/03/19964242Tunqeraqd92/28/2006COVID- 19 Vaccine ( season)/04/2022, 04/27/2021, 08/02/2020, Additional history existsInfluenza Vaccine (#1)/olonoscopy /07/2022, 2Colorectal Cancer Cqnhdkcat17/01/2033 Pneumococcal Vaccine: Pediatrics (0 to 5 Years) and At-Risk Patients (6 to 64 Years)Aged OutNo longer eligible based on patient's age to complete this topic Procedures Procedure NamePriorityDate/TimeAssociated DiagnosisCommentsTOTAL PROTEIN, URINE Lcvnqbn2005/09/2025 3:13 PM EST CREATININE, RANDOM JDJAFKjxkxbz13/03/2025 3:13 PM EST PET/CT SKULL BASE TO MID THIGH03/30/2025 11:34 AM EDT GLUCOSE POCT DUIGCJLZRHKLdmkxek11/24/2025 8:38 AM EDT from Last 3 Months Results * TOTAL PROTEIN, URINE (05/09/2025 3:13 PM EST)ComponentValueRef RangeTest MethodAnalysis TimePerformed AtPathologist SignatureTOTAL PROTEIN, URINE<40 - 9 mg/dL05/09/2025 4:07 PM [facility] CtrSpecimen (Source) Anatomical Location / LateralityCollection Method / VolumeCollection Time Received YbiyKyzik64/03/2025 3:13 PM EST05/09/2025 3:23 PM EST Narrative Authorizing ProviderResult TypeResult StatusTimmy CAMERONAB BLOOD ORDERABLESFinal ResultPerforming OrganizationAddressCity/State/ZIP CodePhone Number [address] [address], [facility] [address] [place] [address] * Creatinine, urine, random (05/09/2025 3:13 PM EST)ComponentValueRef RangeTest MethodAnalysis TimePerformed AtPathologist SignatureCREATININE, URINE (RANDOM) 11.00mg/dL05/09/2025 4:03 PM [facility] CtrComment:No reference range establishedSpecimen (Source)Anatomical Location / Laterality Collection Method / VolumeCollection TimeReceived IdyjBmqew69/03/2025 3:13 PM EST05/09/2025 3:23 PM EST Narrative Authorizing ProviderResult TypeResult StatusYoshievangelina Arnel Jordan DOLAB URINE ORDERABLESFinal ResultPerforming OrganizationAddressCity/State/ZIP CodePhone Number [facility] [address] [place] [address], [facility] [address] [place] [address] * PET/CT skull base to mid thigh [...] OV> ?03/30/25 1144 Narrative 03/30/2025 11:46 AM T [facility] ?[facility] [place] ?[address] ? [place] [address] ?Nuclear Medicine Report ? Signed ? Patient: Marysol Jacobson ?MR#: [id number] ?? 23 ? : 1965 ?Acct:[id number] ? Age/Sex: 59 / F ?ADM Date: 03/30/25 ? Loc: PE ?Room: ?Type: REG RCR ?? Attending Dr: Carlyn Turner APRN ?? Copies to: Andres Wallis Jr, DO [...] Procedure Note Andres Wallis Jr., - 03/30/2025 [facility] [place] [address] [place] [address] Nuclear Medicine Report Signed Patient: Marysol JacobsonMR#: [id number] 22 : 1965Acct:[id number] Age/Sex: 59 / FADM Date: 03/30/25 Loc: Room:Type: [facility] Attending Dr: Carlyn Turner APRN Copies to: [...] recommended. Impression dictated by: Andres Wallis Jr., AlfredOJennifer 03/30/2025 11:44 AM Dictation Location: [place] [address] Transcribed By: [facility] 03/30/25 1144 Dictated By: Andres Wallis Jr, DO 03/30/25 1134 Signed By: <Electronically signed by Andres Wallis Jr, DO inOV> 03/30/25 1144 Authorizing ProviderResult TypeResult StatusTimmy Jordan [facility] CT PROCEDURESFinal Result * GLUCOSE POCT GLUCOMETERS (03/30/2025 8:38 AM EDT)ComponentValueRef RangeTest MethodAnalysis TimePerformed AtPathologist SignatureGLUCOSE POC PNSWKWJEBGJ591 mg/dL03/30/2025 9:07 AM EDTFIRELANDSComment: Random Glucose Reference Range is dependent on time and content of last meal. Glucose of more than 200 mg/dL in a nonstressed, ambulatory subject supports the diagnosis of Diabetes Mellitus. Specimen (Source)Anatomical Location / LateralityCollection Method / Volume Collection TimeReceived TimeBlood (Blood)03/30/2025 8:38 AM EDT03/30/2025 9:07 AM EDT Narrative Authorizing ProviderResult TypeResult StatusCarlyn Turner NPLAB BLOOD ORDERABLESFinal ResultPerforming OrganizationAddressCity/State/ZIP CodePhone Number [facility] [address] [place] [address], [place] from Last 3 Months Insurance MemberSubscriberPlan / Payer (Effective 2022-Present)Name:Shasta Jacobson Member ID:[id number] Relation to Subscriber:SelfName:Shasta Jacobson Subscriber ID:[id number] Payer ID:Not on file Type:Not on file Address: [facility] [id number] [place] [address] Care Teams Team MemberRelationshipSpecialtyStart DateEnd Date Melissa Worthy MD [address] [place] [id number] PCP - GeneralFamily Medicine12/14/24
[2025-05-21 11:59] LABS: Hematocrit 38.7 % (36.0-48.0); Hemoglobin 12.7 g/dL (12.0-16.0); Immature Granulocytes Abs Auto 0.01 10^3/uL (0.00-0.03); Immature Granulocytes Pct Auto 0.3 % (0.0-0.5); Lymphocytes Absolute Auto 1.6 10^3/uL (1.2-3.8); Mean Corpuscular HGB Conc 32.8 g/dL (29.9-35.2); Mean Corpuscular Hemoglobin 31.0 pg (26.7-34.0); Mean Corpuscular Volume 94.4 fL (81.0-99.0); Platelet Count 220 10^3/uL (150-450); Red Blood Count 4.10 10^6/uL (4.20-5.40); White Blood Count 3.7 10^3/uL (4.0-11.0)
[2025-05-21 12:44] LABS: Alanine Aminotransferase 29 U/L (14-59); Albumin Globulin Ratio 1.0; Albumin Level 3.6 g/dL (3.4-5.0); Alkaline Phosphatase 89 U/L (46-116); Anion Gap 12.6; Aspartate Amino Transferase 14 U/L (15-37); Blood Urea Nitrogen 14.0 mg/dL (7.0-18.0); Calcium 9.9 mg/dL (8.5-10.1); Carbon Dioxide 28.6 mmol/L (21.0-32.0); Chloride 108 mmol/L (98-107); Estimated GFR (African America >60 (>=60 mL/min/1.73m^2); Estimated GFR (Non-African Ame >60 (>=60 mL/min/1.73m^2); Globulin 3.6 g/dL; Glucose 93 mg/dL (74-106); Potassium 4.2 mmol/L (3.5-5.1); Sodium 145 mmol/L (136-145); Total Protein 7.2 g/dL (6.4-8.2)
== END 2025-05-21 11:43 | disposition home or self-care (01) ==
LOC: LAB 11:42
PROVIDERS: PCP Family Medicine; Visit Provider Internal Medicine
DX: C18.9 Malignant neoplasm of colon, unspecified (principal)
CPT/HCPCS: 36415; 80053; 85025

== ENCOUNTER 2025-06-04 10:32 | Outpatient (OUT) | payer BC, SELFPAY ==
--- OUTSIDE RECORDS SUMMARY | 2025-05-23 05:55 | XMS_ITS | Continuity of Care Document ---
Author Organization [facility] Address [address] [place] [address] Phone Care Team Providers Care Buildings And Grounds Coordinator Name Role Phone Timmy Jordan II, DO Attending Provider Melissa Worthy MD Primary Care Provider Provider, Outside Attending Provider Unavailable Inessa Mims APRN Attending Provider Asher Jade DO Referring Provider Care Teams Patient Care Team Team Status: Active Member Role/Relationship Status Dates Melissa Worthy MD Primary Care Provider Active Visit Care Team Team Status: Active Member Role/Relationship Status Dates Timmy Jordan II, DO Attending Provider Active Start: March 17, 2025 DIANA Bern[facility]ast [facility] Care ProviderActiveStart: March 17, 2025 Visit Care Team Team Status: Inactive Member Role/Relationship Status Dates Melissa Worthy MD Primary Care Provider Active Start: March 21, 2025 End: March 21, 2025Timmy Jordan II DOAttending ProviderActive Start: March 21, 2025 End: March 21, 2025 Visit Care Team Team Status: Inactive Member Role/Relationship Status Dates Melissa Worthy MD Primary Care Provider Active Start: April 04, 2025 End: April 04, 2025Timmy Jordan II DOAttending ProviderActive Start: April 04, 2025 End: April 04, 2025 Visit Care Team Team Status: Active Member Role/Relationship Status Dates Melissa Worthy MD Primary Care Provider Active Start: April 08, 2025 Outside ProviderAttending ProviderActiveStart: April 08, 2025 Visit Care Team Team Status: Active Member Role/Relationship Status Dates Melissa Worthy MD Primary Care Provider Active Start: April 23, 2025 Timmy Jordan II, DOAttending ProviderActiveStart: April 23, 2025 Visit Care Team Team Status: Active Member Role/Relationship Status Dates Timmy Jordan II, DO Attending Provider Active Start: May 04, 2025 Jose Bernstein Care ProviderActiveStart: May 04, 2025 Visit Care Team Team Status: Inactive Member Role/Relationship Status Dates Melissa Worthy MD Primary Care Provider Active Start: May 05, 2025 End: May 05, 2025Asha Deleon ProviderActiveStart: May 05, 2025 End: May 05, 2025 Patient Care Team Team Status: Active Member Role/Relationship Status Dates Timmy Jordan II, DO Attending Provider Active Start: May 21, 2025 Jose Bernstein Care ProviderActiveStart: May 21, 2025 Patient Care Team Team Status: Inactive Member Role/Relationship Status Dates Melissa Worthy MD Primary Care Provider Active Start: May 23, 2025 End: May 23, 2025Timmy Jordan II, DOAttending ProviderActiveStart: May 23, 2025 End: May 23, 2025 Visit Care Team Team Status: Active Member Role/Relationship Status Dates Timmy Jordan II, DO Attending Provider Active Start: May 23, 2025 Leeann Chang ProviderActiveStart: May 23, 2025 Jose Bernstein Care ProviderActiveStart: May 23, 2025 Chief Complaint and Reason for Visit Chief Complaint Admit Date Follow Up 6 Months March 21, 2025 1:06pm Follow Up after PET and Biopsy April 04, 2025 1:09pm tox check May 05, 2025 1 1:32am Colon Cancer May 23, 2025 10:25am Reason for Visit Admit Date Chemotherapy-induced nausea April 11:32am Chemotherapy-induced peripheral neuropat hy May 05, 2025 11:32am Colon cancer metastasized to lung Octobe r 2024 11:32am Encounter for chemotherapy management Oc tober 2024 11:32am Abnormal LFTs May 23, 2025 10:25am Chemotherapy-induced peripheral neuropat hy May 23, 2025 10:25am Colon cancer May 23, 2025 10:25am Encounter for chemotherapy management No vember 2024 10:25am Reason for Referral Type Reason(s) Provider Provider Contact Information P rovider Address Start Date Malignant neoplasm of colon Multiple pulmonary nodulesCarcinoma of colon metastatic to lungC18.9 - Malignant neoplasm of colon, unspecified,R91.8 - Other nonspecific abnormal finding of lung Roselia Price , DrSeptember 5C18.9 - Malignant neoplasm of colon, unspecified,C78.00 - Secondary malignant neoplasm of unspecified lungSoneyda Lau CC , DrOctober 2024 Allergies, Adverse Reactions, Alerts Allergen Type Severity Reaction Last Updated Verified Status hydrocodone Allergy Unknown Nausea April 04, 2025 12:18pm Yes Active Social History Smoking Status Status Start Date End Date Date of Observa tion Never smoked tobacco (finding) February 01, 2025 8:41am Observation Status Observation Response Date of Response Legal Sex Female (finding) Sex Assigned At BirthFemaleSeptember 1964 Family History Relationship Condition Age at Onset Recorded Date/T demond mother Diabetes mellitus Unknown DementiaUnknownMyocardial infarctionUnknownGlaucomaUnknownHypertensionUnknown DeceasedUnknownHeart diseaseUnknownfatherParkinsonismUnknownGlaucomaUnknown HypertensionUnknownDeceasedUnknownbrotherHypertensionUnknownsisterHypertension UnknownDeceasedUnknownMalignant neoplasm of pancreasUnknown Problems Active Problems Problem Diagnosis/Recorded Date Onset Date Stat Colon cancer metastasized to lung May 05, 2025 7 :45am Unknown Active Chemotherapy-induced nausea May 05, 2025 11:28am Unknown Active Screening mammogram for breast cancer December 20, 2024 9:56am Unknown Active Pharyngitis, chronic December 14, 2024 8:59am Unknown Active Colon cancer May 03, 2022 2:26pm Unknown Ac tive Globus sensation December 20, 2024 11:51am Unknown Active Abnormal LFTs July 22, 2022 11:45am Unknown Active Encounter for chemotherapy management June 03, 8:35am Unknown Active Wellness examination November 17, 2023 9:06am Unknown Active Osteoarthritis July 01, 2024 12:44pm Unknown Active Situational anxiety July 01, 2024 12:44pm Unknow n Active Chemotherapy-induced periphe ral neuropathy July 22, 2022 11:45am Unknown Active GERD (gastroesophageal reflux disease) December 14, 2024 11:37am Unknown Active Inactive/Resolved Problems Problem Diagnosis/Recorded Date Onset Date Stat us Salivary gland hypertrophy November 17, 2023 9:05am Unkno wn Resolved Medications Medication Status Dose Units Route Directions Qty Days Refills S tart Date Stop Date End Date Reason(s) Instructions Adherence Pantoprazole 40 mg tablet,delayed release (DR/EC) Acti ve 0 .ROUTE.BAKSYEX376Wtvaxhaja 4th, 2025 8:29amTake 1 tablet by mouth once daily UnknownLatanoprost 0.005 % FximkIlhhhr8YRHGLDVZ-RBKOXlfuv eveningOctober 2021 11:00pmComplies with drug therapyBrimonidine 0.2 % UlocjKqwrop9VCEFB EYE-BOTHTwice dailyOctober 2021 11:00pmComplies with drug therapy Dorzolamide-Timolol 22.3-6.8 mg/mL jzjcaStvgtp3DAGKVKGQ-DNOGWfvuy dailyOctober 2021 11:00pmComplies with drug therapyVitamin A-Vitamin C-Vit E-Min (Ocuvite) GbqncwImrzqielwyik1ZJBSXFwtzeFqyndcb 2021 11:00pmNovember 2021 9:98btPuibe-Su-5-Mwb-Udm-Vdnvwfp-Ast 1,883-768-30-80 mg CapsuleDiscontinued 1CAPPODailyOctober 2021 11:00pmOctober 2021 1:39pmAcetaminophen 500 mg KfkvfcVtdloz7262ECCANcyqg as needed for PainOctober 2021 11:00pm Complies with drug therapyOndansetron Hcl 8 mg ukjvsoJuzajayffzwl8SLUJF1N as needed for Kssden313Qfkarrb 2021 11:00pmSeptember 2022 9:40am Malignant neoplasm of colon Malignant neoplasm of colon, unspecifiedAscorbic Acid (Vitamin C) 1,000 mg Capsule, Extended QfdwnfwSjbbixrvzzfm9VDHQWQytyaZcxfrehz 2021 12:00amMay 2023 8:47amCholecalciferol (Vitamin D3) 25 mcg (1,000 unit) CapsuleActive 25MCGPODailyNovember 2021 12:00amComplies with drug therapy Prochlorperazine Maleate (Compazine) 10 mg LwhswjXjfcopibxhdu78ZLFMW9L as needed for Nausea And Zeuxwaam709Ubdqwzm 2022 12:00amSeptember 2022 9:40am Malignant neoplasm of colon Malignant neoplasm of colon, unspecifiedOmeprazole Magnesium (Prilosec) 10 mg Susp,Delayed Release For FrauzPvgipetlreau62SWONRaiey102Lytvbyb 2022 12:00amJune 2024 8:54amMalignant neoplasm of colon Malignant neoplasm of colon, unspecifiedCarica Papaya (Papaya Enzyme) Tablet Gpkrqvejhjxs0IRMFRDppngCzvlczcq 2022 12:00amDecember 2022 11:38am Celecoxib (Celebrex) 200 mg FvgjpsvOaichircigoy364PLDZGzxjq674Rytwncoip 2022 11:00pmDecember 2023 11:29amVit C-E-Zinc Zi-Ydsm-Xrn-Zeax (Icaps Areds2) 250 mg-200 unit -12.5 mg-1 mg NxlvxssZkkyngmcofpj0KJWAWKmnxdScvceemb 2022 12:00amMay 2023 8:48amCelecoxib (Celebrex) 200 mg capsule Egsdqjunfdtb362YALFXjfkq592Jxohozne 2023 11:29amSeptember 2024 12:18pmGlucosamine Hcl 500 mg vwjeeaKkxawxlkamys362NMVBXaxnrDtin 2023 11:00pmDecember 2023 11:06amadminister with a mealOmega 8-Caj-Ddm-Fish Oil (Fish Oil) 300-1,000 mg jgbvvmuXzsrck1APKRDVvekzBidz 2023 11:00pmUnknown Loratadine (Claritin) 10 mg nccyjrVczicfwfrumd39CNTHFfxoqJikx 2024 11:00pm January 20, 2025 12:11pmPantoprazole 40 mg tablet,delayed release (DR/EC) Ovqyqzfckuyb08CRBWPzjjk572Ivtl 2024 11:00pmSept2024 8:29amBeta- Glucan 500 mg capsuleActiveMGPOSept2024 11:00pmUnknownOndansetron 8 mg tablet,pxogfywijwfjljSbebbm4UHUJKkqwe 8 hours as needed for nausea and jalavedw936Pnsiskafv 29th, 2025 11:00pmUnknownLoratadine (Allergy Relief (Loratadine)) 10 mg oxjvvmeZylawk32GVOENsxcnZkhxbzez 2024 12:00amUnknown Procedures Procedure Date Performed Status PET tumor init tx strat sb-mt March 30 7:57am completed Relevant Diagnostic Tests and/or Laboratory Data Laboratory Results Test Collection Date/Time Result Date/Time Result Interpretation Reference Range Result Comment Performing Site Basophils # (Auto) March 17, 2025 11:02am March 17, 2025 11:02am 0.0 10 3/uL 0.0-0.1Anion GapSept2024 11:02amSeptember 2024 11:02am11.6 Carcinoembryonic AntigenSept2024 11:02amSeptember 2024 11:02am 35.0 ng/mLAbnormal (applies to non-numeric results)0.0-4.7Nonsmokers <3.9 Smokers <5.6Roche [employer]ostics Electrochemiluminescence Immunoassay(ECLIA)Values obtained with different assay methods or kitscannot be used interchangeably. Results cannot beinterpreted as absolute evidence of the presence orabsence of malignant disease.Performed at: [address] [id number] Director: Edilson Saunders PhD, Phone: [phone] Time International RatioOctober 2024 11:09amOctober 2024 11:09am1.03DESIRED INR:2.0-3.0 CONDITIONS NOT LISTED BELOW2.5-3.5 FOR PROSTHETIC HEART VALVE REPLACEMENT2.5-3.5 RECURRENT THROMBOSISBasophils # (Auto)April 23, 2025 7:15amOctober 2024 7:15am0.0 10 3/uL0.0-0.1Anion GapOctober 2024 7:15amOct2024 7:15am14.4CA 125 AntigenApril 23, 2025 7:15am April 23, 2025 7:15am11.5 U/mL0.0-38.1Roche Diagnostics Electrochemiluminescence Immunoassay(ECLIA)Values obtained with different assay methods or kits cannotbe used interchangeably. Results cannot be interpreted asabsolute evidence of the presence or absence of malignantdisease.Performed at: [address] [id number] Director: Edilson Saunders PhD, Phone: [phone] 18th, 2025 7:15amOctober 2024 7:84ib837.0 ng/mL8.0-252.0Iron SaturationApril 23, 2025 7:15amOctober 2024 7:15am19.2 %Human Chorionic Gonadotropin, QualOct2024 7:15amOctober 2024 7:15amNEGATIVENEGATIVEErythrocyte Sedimentation Rate April 23, 2025 7:15amOct2024 7:15am15 mm/hr<=30Basophils # (Auto) May 04, 2025 11:45amOctober 2024 11:45am0.0 10 3/uL0.0-0.1Anion Gap May 04, 2025 11:45amOctober 2024 11:45am14.7Basophils # (Auto) May 21, 2025 11:49amNovember 2024 11:49am0.0 10 3/uL0.0-0.1Anion GapNovember 2024 11:49amNovember 2024 11:49am12.6Basophils (%) (Auto)March 17, 2025 11:02amSeptember 2024 11:02am0.6 %0.2-2.0 Albumin/Globulin RatioSeptember 2024 11:02amSeptember 2024 11:02am 1.0Prothrombin TimeOct2024 11:09amOctober 2024 11:09am10.9 sec 9.0-11.6Basophils (%) (Auto)April 23, 2025 7:15amOctober 2024 7:15am 0.6 %0.2-2.0Albumin/Globulin RatioOctober 2024 7:15amOctober 2024 7:15am1.1Iron LevelOctober 2024 7:15amOctober 2024 7:15am52.0 ug/dL 50.0-170.0Basophils (%) (Auto)May 04, 2025 11:45amOctober 2024 11:45am0.6 %0.2-2.0Albumin/Globulin RatioOctober 2024 11:45amOctober 2024 11:45am1.2Basophils (%) (Auto)May 21, 2025 11:49amNovember 2024 11:49am0.5 %0.2-2.0Albumin/Globulin RatioNovember 2024 11:49am May 21, 2025 11:49am1.0Eosinophils # (Auto)March 17, 2025 11:02am March 17, 2025 11:02am0.1 10 3/uL0.0-0.7AlbuminSeptember 2024 11:02amSeptember 2024 11:02am3.8 g/dL3.4-5.0Eosinophils # (Auto)April 23, 2025 7:15amOctober 2024 7:15am0.1 10 3/uL0.0-0.7AlbuminOctober 2024 7:15amOctober 2024 7:15am3.9 g/dL3.4-5.0Total Iron Binding Capacity April 23, 2025 7:15amOctober 2024 7:72nb445.0 ug/dL250.0-450.0 Eosinophils # (Auto)May 04, 2025 11:45amOctober 2024 11:45am0.1 10 3/uL0.0-0.7AlbuminOctober 2024 11:45amOctober 2024 11:45am3.6 g/dL 3.4-5.0Eosinophils # (Auto)May 21, 2025 11:49amNovember 2024 11:49am0.0 10 3/uL0.0-0.7AlbuminNovember 2024 11:49amNovember 2024 11:49am3.6 g/dL3.4-5.0Eosinophils (%) (Auto)March 17, 2025 11:02am March 17, 2025 11:02am2.1 %0.9-7.0Alkaline PhosphataseSeptember 2024 11:02amSeptember 2024 11:02am81 U/U58-885Grjjkwswrik (%) (Auto)April 23, 2025 7:15amOctober 2024 7:15am1.2 %0.9-7.0Alkaline Phosphatase April 23, 2025 7:15amOctober 2024 7:15am86 U/W35-570Yvtazcmozun (%) (Auto)May 04, 2025 11:45amOctober 2024 11:45am1.4 %0.9-7.0Alkaline PhosphataseOctober 2024 11:45amOctober 2024 11:45am67 U/L46-116 Eosinophils (%) (Auto)May 21, 2025 11:49amNovember 2024 11:49am0.3 %Below low normal0.9-7.0Alkaline PhosphataseNovember 2024 11:49amNovember 2024 11:49am89 U/P76-371NjqvmkbxvpQbgsqqxrh 2024 11:02amSeptember 2024 11:02am41.6 %36.0-48.0Alanine Aminotransferase (ALT/SGPT)March 17, 2025 11:02amSeptember 2024 11:02am24 U/K03-60TkucxhzclrKlhbbrm 2024 7:15amOctober 2024 7:15am40.9 %36.0-48.0Alanine Aminotransferase (ALT/SGPT)April 23, 2025 7:15amOctober 2024 7:15am19 U/L14-59 HematocritOctober 2024 11:45amOctober 2024 11:45am37.2 %36.0-48.0 Alanine Aminotransferase (ALT/SGPT)May 04, 2025 11:45amOctober 2024 11:45am33 U/K06-53ZgvysghlonJyjadwvv 2024 11:49amNovember 2024 11:49am38.7 %36.0-48.0Alanine Aminotransferase (ALT/SGPT)May 21, 2025 11:49amNovember 2024 11:49am29 U/Y54-65ZpawwztmjuQjkjommpi 2024 11:02amSeptember 2024 11:02am13.9 g/dL12.0-16.0Aspartate Amino Transf (AST/SGOT)March 17, 2025 11:02amSeptember 2024 11:02am22 U/L15-37 HemoglobinOctober 2024 7:15amOctober 2024 7:15am13.7 g/dL12.0-16.0 Aspartate Amino Transf (AST/SGOT)April 23, 2025 7:15amOctober 2024 7:15am20 U/H50-73EgnpkovadyEuxxcpd 2024 11:45amOctober 2024 11:45am 12.4 g/dL12.0-16.0Aspartate Amino Transf (AST/SGOT)May 04, 2025 11:45am May 04, 2025 11:45am24 U/T64-04EezddfxoxqXaiufnfx 15th, 2025 11:49am May 21, 2025 11:49am12.7 g/dL12.0-16.0Aspartate Amino Transf (AST/SGOT) May 21, 2025 11:49amNovember 2024 11:49am14 U/LBelow low normal 15-37Immature Granulocyte # (Auto)March 17, 2025 11:02amSept2024 11:02am0.01 10 3/uL0.00-0.03BUN/Creatinine RatioSept2024 11:02amSept2024 11:02am22.8Immature Granulocyte # (Auto)April 23, 2025 7:15amOctober 2024 7:15am0.01 10 3/uL0.00-0.03BUN/Creatinine RatioOct2024 7:15amOctober 2024 7:15am22.6Immature Granulocyte # (Auto)May 04, 2025 11:45amOctober 2024 11:45am0.01 10 3/uL 0.00-0.03BUN/Creatinine RatioOctp[facility]sville [facility] 2024 11:45amOctober 2024 11:45am25.0Immature Granulocyte # (Auto)May 21, 2025 11:49amNovember 2024 11:49am0.01 10 3/uL0.00-0.03BUN/Creatinine RatioNove2024 11:49amNovember 2024 11:49am25.0Immature Granulocyte % (Auto)March 17, 2025 11:02amSept2024 11:02am0.2 %0.0-0.5Blood Urea Nitrogen March 17, 2025 11:02amSept2024 11:02am13.0 mg/dL7.0-18.0 Immature Granulocyte % (Auto)April 23, 2025 7:15amOctober 2024 7:15am 0.2 %0.0-0.5Blood Urea NitrogenOctober 2024 7:15amOctober 2024 7:15am14.0 mg/dL7.0-18.0Immature Granulocyte % (Auto)May 04, 2025 11:45am May 04, 2025 11:45am0.3 %0.0-0.5Blood Urea NitrogenOctober 2024 11:45amOctober 2024 11:45am12.0 mg/dL7.0-18.0Immature Granulocyte % (Auto) May 21, 2025 11:49amNovember 2024 11:49am0.3 %0.0-0.5Blood Urea NitrogenNovember 2024 11:49amNovember 2024 11:49am14.0 mg/dL7.0-18.0 Lymphocytes # (Auto)March 17, 2025 11:02amSeptember 2024 11:02am1.5 10 3/uL1.2-3.8Calcium LevelSeptember 2024 11:02amSeptember 2024 11:02am9.1 mg/dL8.5-10.1Lymphocytes # (Auto)April 23, 2025 7:15amOctober 2024 7:15am1.7 10 3/uL1.2-3.8Calcium LevelOctober 2024 7:15amOctober 2024 7:15am9.6 mg/dL8.5-10.1Lymphocytes # (Auto)May 04, 2025 11:45am May 04, 2025 11:45am1.6 10 3/uL1.2-3.8Calcium LevelOctober 2024 11:45amOctober 2024 11:45am9.0 mg/dL8.5-10.1Lymphocytes # (Auto)May 21, 2025 11:49amNovember 2024 11:49am1.6 10 3/uL1.2-3.8Calcium Level May 21, 2025 11:49amNovember 2024 11:49am9.9 mg/dL8.5-10.1 Lymphocytes (%) (Auto)March 17, 2025 11:02amSeptember 2024 11:02am 31.1 %20.5-60.0Chloride LevelSeptember 2024 11:02amSeptember 2024 11:37qz862 mmol/H97-195Lkifjakunxe (%) (Auto)April 23, 2025 7:15amOctober 2024 7:15am26.5 %20.5-60.0Chloride LevelOctober 2024 7:15amOctober 2024 7:69gn223 mmol/R48-070Qhhzdqddlql (%) (Auto)May 04, 2025 11:45amOctober 2024 11:45am43.6 %20.5-60.0Chloride LevelOctober 2024 11:45amOctober 2024 11:33iz871 mmol/K64-299Opmevihyjba (%) (Auto)May 21, 2025 11:49amNovember 2024 11:49am42.7 %20.5-60.0Chloride Level May 21, 2025 11:49amNovember 2024 11:69bj509 mmol/LAbove high puioqz33-062Sibc Corpuscular HemoglobinSeptember 2024 11:02amSeptember 2024 11:02am31.9 pg26.7-34.0Carbon Dioxide LevelSeptember 2024 11:02amSeptember 2024 11:02am27.3 mmol/L21.0-32.0Mean Corpuscular HemoglobinOctober 2024 7:15amOctober 2024 7:15am31.5 pg26.7-34.0 Carbon Dioxide LevelOctober 2024 7:15amOctober 2024 7:15am25.8 mmol/L21.0-32.0Mean Corpuscular HemoglobinOctober 2024 11:45amOctober 2024 11:45am30.8 pg26.7-34.0Carbon Dioxide LevelOct2024 11:45am May 04, 2025 11:45am24.2 mmol/L21.0-32.0Mean Corpuscular Hemoglobin May 21, 2025 11:49amNovember 2024 11:49am31.0 pg26.7-34.0Carbon Dioxide LevelNovember 2024 11:49amNovember 2024 11:49am28.6 mmol/L 21.0-32.0Mean Corpuscular Hemoglobin ConcentSeptember 2024 11:02am March 17, 2025 11:02am33.4 g/dL29.9-35.2CreatinineSept2024 11:02amSeptember 2024 11:02am0.57 mg/dL0.55-1.02Mean Corpuscular Hemoglobin ConcentOct2024 7:15amOctober 2024 7:15am33.5 g/dL 29.9-35.2CreatinineOctober 2024 7:15amOctober 2024 7:15am0.62 mg/dL 0.55-1.02Mean Corpuscular Hemoglobin ConcentOctober 2024 11:45amOctober 2024 11:45am33.3 g/dL29.9-35.2CreatinineOctober 2024 11:45amOctober 2024 11:45am0.48 mg/dLBelow low normal0.55-1.02Mean Corpuscular Hemoglobin ConcentNovember 2024 11:49amNovember 2024 11:49am32.8 g/dL29.9-35.2 CreatinineNovember 2024 11:49amNovember 2024 11:49am0.56 mg/dL 0.55-1.02Mean Corpuscular VolumeSeptember 2024 11:02amSeptember 2024 11:02am95.4 fL81.0-99.0Estimated GFR ()March 17, 2025 11:02amSeptember 2024 11:02am>60>=60 mL/min/1.73m 2Mean Corpuscular Volume April 23, 2025 7:15amOctober 2024 7:15am94.0 fL81.0-99.0Estimated GFR ()April 23, 2025 7:15amOctober 2024 7:15am>60>=60 mL/min/1.73m 2Mean Corpuscular VolumeOct2024 11:45amOctober 2024 11:45am92.3 fL81.0-99.0Estimated GFR ()May 04, 2025 11:45amOctober 2024 11:45am>60>=60 mL/min/1.73m 2Mean Corpuscular Volume May 21, 2025 11:49amNovember 2024 11:49am94.4 fL81.0-99.0Estimated GFR ()May 21, 2025 11:49amNovember 2024 11:49am>60 >=60 mL/min/1.73m 2Monocytes # (Auto)March 17, 2025 11:02amSeptember 2024 11:02am0.5 10 3/uL0.3-0.8Estimated GFR (Non- AmericanSept2024 11:02amSeptember 2024 11:02am>60>=60 mL/min/1.73m 2Monocytes # (Auto) April 23, 2025 7:15amOctober 2024 7:15am0.5 10 3/uL0.3-0.8Estimated GFR (Non- AmericanOct2024 7:15amOctober 2024 7:15am>60 >=60 mL/min/1.73m 2Monocytes # (Auto)May 04, 2025 11:45amOctober 2024 11:45am0.2 10 3/uLBelow low normal0.3-0.8Estimated GFR (Non- AmericanOctober 2024 11:45amOctober 2024 11:45am>60>=60 mL/min/1.73m 2Monocytes # (Auto)May 21, 2025 11:49amNovember 2024 11:49am0.3 10 3/uL0.3-0.8Estimated GFR (Non- AmericanNov2024 11:49am May 21, 2025 11:49am>60>=60 mL/min/1.73m 2Monocytes (%) (Auto)March 17, 2025 11:02amSeptember 2024 11:02am9.9 %1.7-12.0GlobulinSeptember 2024 11:02amSeptember 2024 11:02am3.7 g/dLMonocytes (%) (Auto) April 23, 2025 7:15amOctober 2024 7:15am7.8 %1.7-12.0GlobulinOctober 2024 7:15amOctober 2024 7:15am3.6 g/dLMonocytes (%) (Auto)May 04, 2025 11:45amOctober 2024 11:45am5.5 %1.7-12.0GlobulinOctober 2024 11:45amOctober 2024 11:45am3.0 g/dLMonocytes (%) (Auto)May 21, 2025 11:49amNovember 2024 11:49am9.2 %1.7-12.0GlobulinNovember 2024 11:49amNovember 2024 11:49am3.6 g/dLMean Platelet VolumeSeptember 2024 11:02amSeptember 2024 11:02am10.4 fL9.5-13.5Glucose LevelSeptember 2024 11:02amSeptember 2024 11:98yl090 mg/xS66-305Raqq Platelet VolumeOctober 2024 7:15amOctober 2024 7:15am11.3 fL9.5-13.5Glucose LevelOctober 2024 7:15amOctober 2024 7:23et932 mg/xB83-508Meub Platelet VolumeOctober 2024 11:45amOctober 2024 11:45am10.8 fL 9.5-13.5Glucose LevelOctober 2024 11:45amOctober 2024 11:01ky789 mg/dLAbove high ngdjul17-387Lmll Platelet VolumeNovember 2024 11:49am May 21, 2025 11:49am10.4 fL9.5-13.5Glucose LevelNovember 2024 11:49amNovember 2024 11:49am93 mg/sD67-387Svbapcavolh # (Auto)March 17, 2025 11:02amSeptember 2024 11:02am2.7 10 3/uL1.4-6.5Potassium Level March 17, 2025 11:02amSeptember 2024 11:02am3.9 mmol/L3.5-5.1 Neutrophils # (Auto)April 23, 2025 7:15amOctober 2024 7:15am4.1 10 3/uL1.4-6.5Potassium LevelOctober 2024 7:15amOctober 2024 7:15am4.2 mmol/L3.5-5.1Neutrophils # (Auto)May 04, 2025 11:45amOctober 2024 11:45am1.8 10 3/uL1.4-6.5Potassium LevelOctober 2024 11:45amOctober 2024 11:45am3.9 mmol/L3.5-5.1Neutrophils # (Auto)May 21, 2025 11:49am May 21, 2025 11:49am1.7 10 3/uL1.4-6.5Potassium LevelNovember 2024 11:49amNovember 2024 11:49am4.2 mmol/L3.5-5.1Neutrophils (%) (Auto) March 17, 2025 11:02amSeptember 2024 11:02am56.1 %43.0-75.0Sodium LevelSept2024 11:02amSeptember 2024 11:90lp941 mmol/X327-363 Neutrophils (%) (Auto)April 23, 2025 7:15amOctober 2024 7:15am63.7 % 43.0-75.0Sodium LevelOctober 2024 7:15amOctober 2024 7:96aq304 mmol/Q576-525Ysuovcepotr (%) (Auto)May 04, 2025 11:45amOctober 2024 11:45am48.6 %43.0-75.0Sodium LevelOctober 2024 11:45amOctober 2024 11:17rk017 mmol/K684-238Xjhecsbpuff (%) (Auto)May 21, 2025 11:49am May 21, 2025 11:49am47.0 %43.0-75.0Sodium LevelNovember 2024 11:49amNovember 2024 11:39ga618 mmol/I178-190Jrvmbwed CountSept2024 11:02amSeptember 2024 11:40lq921 10 3/mC703-948Bzrdq Bilirubin March 17, 2025 11:02amSeptember 2024 11:02am0.5 mg/dL0.2-1.0Platelet CountOctober 2024 7:15amOctober 2024 7:94zz071 10 3/lV783-363Ucihj BilirubinOctober 2024 7:15amOctober 2024 7:15am0.6 mg/dL0.2-1.0 Platelet CountOctober 2024 11:45amOctober 2024 11:26vi321 10 3/uL 150-450Total BilirubinOctober 2024 11:45amOctober 2024 11:45am0.3 mg/dL0.2-1.0Platelet CountNovember 2024 11:49amNovember 2024 11:49am 220 10 3/gK966-466Rlxeh BilirubinNovember 2024 11:49amNovember 2024 11:49am0.3 mg/dL0.2-1.0Red Blood CountSeptember 2024 11:02amSeptember 2024 11:02am4.36 10 6/uL4.20-5.40Total ProteinSeptember 2024 11:02am March 17, 2025 11:02am7.5 g/dL6.4-8.2Red Blood CountOctober 2024 7:15amOctober 2024 7:15am4.35 10 6/uL4.20-5.40Total ProteinOctober 2024 7:15amOctober 2024 7:15am7.5 g/dL6.4-8.2Red Blood CountOctober 2024 11:45amOctober 2024 11:45am4.03 10 6/uLBelow low normal4.20-5.40Total ProteinOctober 2024 11:45amOctober 2024 11:45am6.6 g/dL6.4-8.2Red Blood CountNovember 2024 11:49amNovember 2024 11:49am4.10 10 6/uL Below low normal4.20-5.40Total ProteinNovember 2024 11:49amNovember 2024 11:49am7.2 g/dL6.4-8.2Red Cell Distribution WidthSept2024 11:02amSeptember 2024 11:02am13.2 %11.0-15.0Red Cell Distribution Width April 23, 2025 7:15amOctober 2024 7:15am12.6 %11.0-15.0Red Cell Distribution WidthOctober 2024 11:45amOctober 2024 11:45am12.2 % 11.0-15.0Red Cell Distribution WidthNovember 2024 11:49amNovember 2024 11:49am13.4 %11.0-15.0Corrected White Blood CountSeptember 2024 11:02amSeptember 2024 11:02am4.9 10 3/uL4.0-11.0Corrected White Blood CountOctober 2024 7:15amOctober 2024 7:15am6.4 10 3/uL4.0-11.0 Corrected White Blood CountOctober 2024 11:45amOctober 2024 11:45am 3.6 10 3/uLBelow low normal4.0-11.0Corrected White Blood CountNovember 2024 11:49amNovember 2024 11:49am3.7 10 3/uLBelow low normal4.0-11.0 Corrected White Blood CountSeptember 2022 10:17amSeptember 2022 10:47am5.1 10*3/uL3.8-11.6[facility] [id number] [address] [facility] [id number] WBC CountSeptember 2022 10:17amSeptember 2022 10:47am5.1 10*3/uL3.8-11.6F[facility] [id number] [address] [facility] [address]Olb Blood CountSeptember 2022 10:17amSeptember 2022 10:47am4.26 X10E6/uL3.60-5.00[facility] [facility] [id number] [address] [facility] 71269OvvacljunbDhaojnzmy 2022 10:17amSeptember 2022 10:47am13.8 g/dL11.8-15.4FTr[facility]ull [facility] [id number] [address] [facility] 89969AxoqjjtynpHogiwvjxi 2022 10:17amSeptember 2022 10:47am40.8 %34.0-46.4FTrumbull [facility] [id number] [address] [facility] 52919Acgw Corpuscular VolumeSeptember 2022 10:17amSept2022 10:47am95.7 gF70-198SrldyfquqUniversity [facility] [id number] [address] [facility] 07098Cnah Corpuscular HemoglobinSeptember 2022 10:17am March 20, 2023 10:47am32.3 pg24.7-34.3FTrumbull [facility] [id number] [address] [facility] 68432Nrfg Corpuscular Hemoglobin ConcentSeptember 2022 10:17am March 20, 2023 10:47am33.7 g/dL32.0-35.0[facility] [id number] [address] [facility] 90558Edh Cell Distribution WidthSeptember 2022 10:17am March 20, 2023 10:47am13.7 %11.9-15.3FTr[facility]ull [facility] [id number] [address] [facility] 20799Wxqrlmnc CountSeptember 2022 10:17aept2022 10:29pl845 10*3/vK078-707OufqcxwctUniversity Hospitals St. [facility] [id number] [address] [facility] 81505Yicr Platelet VolumeSeptember 2022 10:17amSept2022 10:47am8.9 fL6.3-10.7FTrumbull [facility] [id number] [address] [facility] 09193Mirlmvzrwmg (%) (Auto)March 20, 2023 10:17aept2022 10:47am47.[address] [id number] [address] [facility] 85334Xtuktytsyor (%) (Auto)March 20, 2023 10:17amSept2022 10:47am39.[address] [id number] [address] [facility] 88194Dfpfzxxtl (%) (Auto)March 20, 2023 10:2022 10:47am9.0 %.[facility] [id number] [address] [facility] 08692Smsucshbqgz (%) (Auto)March 20, 2023 10:17aept2022 10:47am2.[address] [id number] [address] [facility] 06028Ppfioppko (%) (Auto)March 20, 2023 10:ept2022 10:47am1.[address] [id number] [address] [facility] 44306Pgqebjmzx RBC Relative Count (auto)March 20, 2023 10:17am March 20, 2023 10:47am0.1 /100{WBC}0-0.5FTr[facility] [id number] [address] [facility] 94696Ctzkbqhuajh # (Auto)March 20, 2023 10:ept2022 10:47am2.4 10*3/uL1.8-7.7FTr[facility]ull [facility] [id number] [address] [facility] 12745Elcgxycfgko # (Auto)March 20, 2023 10:2022 10:47am2.0 10*3/uL1.00-4.8[facility] [id number] [address] [facility] 02206Rpdfniunw # (Auto)March 20, 2023 10:ept2022 10:47am0.5 10*3/uL0.0-0.8[facility] [id number] [address] [facility] 03436Pbrtqgjpano # (Auto)March 20, 2023 10:ept2022 10:47am0.1 10*3/uL0.0-0.45[facility] [id number] [address] [facility] 92028Jbvqauinx # (Auto)March 20, 2023 10:2022 10:47am0.1 10*3/uL0.0-0.2FTr[facility]ull [facility] [id number] [address] [facility] 95344Slmcvqb LevelSeptember 2022 10:mSept2022 11:09am80 mg/gW38-323NGP recommended reference rangeRandom Glucose Reference Range is dependent on time and content of last meal. Glucose of more than 200 mg/dL in a nonstressed, ambulatory subject supports the diagnosisof Diabetes Mellitus.[facility] [id number] [address] [facility] 47647Irdax Urea NitrogenSept2022 10:2022 11:09am16 mg/dL7-25[facility] [id number] [address] [facility] 04137GoulunriunUndhmolus 14th, 2023 10:2022 11:09am0.73 mg/dL0.60-1.20[facility] [id number] [address] [facility] 16020Zvejzatmw GFR (Non- AmericanJan2022 2:35pm July 11, 2022 2:52pm> 60 mL/MinUniversity Hospitals St. John [facility] [id number] [address] [facility] 13330Dwqtlfkni GFR (CKD-EPI)March 20, 2023 10:2022 11:09am> 60.0 mL/MinUniversity Hospitals St. [facility] [id number] [address] [facility] 78578Nkpnjijdo GFR ()July 11, 2022 2:35pmJan2022 2:52pm> 60 mL/MinGFR estimated reference range: According to KDOQI guidelines, <60 ml/min/1.73m2 is sufficient todiagnose a patient with chronic kidney disease.[facility] [id number] [address] [facility] 31697Pfspfe LevelSeptember 2022 10:17amSept2022 11:54wi154 mmol/A001-272SxiecqcumUniversity Hospitals St. [facility] [id number] [address] [facility] 90375Sutzymhjv LevelSeptember 2022 10:17amSeptember 2022 11:09am4.3 mmol/L3.5-5.1FTrumbull [facility] Hospital [facility] [id number] [address] [facility] 76961Fpygeiuo LevelSeptember 2022 10:17amSeptember 2022 11:28dq755 mmol/Y53-279HevbdvyxlUniversity Hospitals St. [facility] [id number] [address] [facility] 30361Eapman Dioxide LevelSeptember 2022 10:17amSeptember 2022 11:09am27.3 mmol/L21.0-31.0[facility] [id number] [address] [facility] 61438Fysco GapSeptember 2022 10:17amSeptember 2022 11:09am11.0 mEq/L6.0-15.0[facility] [id number] [address] [facility] 35892Latfwxj LevelSeptember 2022 10:17amSeptember 2022 11:09am10.3 mg/dL8.6-10.3FTr[facility]ull [facility] [id number] [address] [facility] 47783Hsbvtsrxt LevelMarch 2022 9:21amMarch 2022 10:03am 2.2 mg/dL1.9-2.7FTrumbull [facility] Hospital [facility] [id number] [address] [facility] 15734Yvgxh ProteinSeptember 2022 10:17amSeptember 2022 11:09am7.3 g/dL6.4-8.9[facility] [id number] [address] [facility] 12668VizntidPfoyilzxl 2022 10:17amSeptember 2022 11:09am 4.4 g/dL3.5-5.7FTr[facility]ull [facility] [id number] [address] [facility] 01231ZefjwpsqQsxxavjqd 2022 10:17amSeptember 2022 11:09am2.9 g/dLUniversity Hospitals St. [facility] [id number] [address] [facility] 41198Cprtqkq/Globulin RatioSeptember 2022 10:17amSeptember 2022 11:09am1.5FTrumbull [facility] Hospital [facility] [id number] [address] [facility] 22377Oujvw BilirubinSeptember 2022 10:17amSeptember 2022 11:09am0.8 mg/dL0.3-1.0[facility] [id number] [address] [facility] 15057Xosveajzj Amino Transf (AST/SGOT)March 20, 2023 10:17am March 20, 2023 11:09am21 U/B78-86DtuzmtnvtUniversity Hospitals St. [facility] [id number] [address] [facility] 76261Xkzzfny Aminotransferase (ALT/SGPT)March 20, 2023 10:17am March 20, 2023 11:09am16 U/L7-52[facility] [id number] [address] [facility] 70482Dywadcbv PhosphataseSeptember 2022 10:17amSeptember 2022 11:09am88 U/L90-951RenticucbUniversity Hospitals St. [facility] [id number] [address] [facility] 49413Mbytitsbpbdkgdtg AntigenSeptember 2022 10:17amSeptember 2022 6:29pm3.3 ng/mLAbove high normal0.0-3.0[facility] [id number] [address] [place] [address] 71393Pyfnytxp Creatinine Clearance (ChemSeptember 2022 10:17am March 20, 2023 11:09am86.44[facility] [id number] [address] [facility] 80480Sukch Random CreatinineNovember 2024 3:13pmNovember 2024 4:07pm11.00 mg/dLNo reference range establishedUniversity Hospitals St. [facility] [id number] [address] [facility] 05158Ltqix Random Total ProteinNovember 2024 3:13pmNovember 2024 4:07pm< 4 mg/dL0-9[facility] [id number] [address] [place] [address] 38016Cfogljk GlucoseSeptember 2024 7:38amSeptember 2024 8:23la763 mg/dLRandom Glucose Reference Range is dependent on time and content of last meal. Glucose of more than 200 mg/dL in a nonstressed, ambulatory subject supports the diagnosis of Diabetes Mellitus.Point of Care testing Diagnostic Imaging Reports Author Andres aWllis Flower HospitalAuthoredSeptember 2024 11:34amReport Dictated Date/TimeDictated ByStatusRadiology ReportSeptember 2024 11:34am Andres Wallis Jr DOcompleteSelect [facility] [place] [address] [place], [place] [address] Nuclear Medicine Report Signed Patient: Marysol Jacobson MR#: [id number] : 1965 Acct:[id number] Age/Sex: 59 / F ADM Date: 5 Loc: Room: Type: [facility] RCR Attending Dr: Carlyn Turner DIRECTOR AGRICULTURAL SERVICES Copies to: Andres Wallis Jr, DO Mary K Demboske, APRN Timothy J Adamowicz, II, DO~ Ordering Provider: Timmy Jordan II, DO Date [...] or free fluid. PET/PET tumor init tx strajumana sb-mt IMPRESSION: 1. Bilateral pulmonary nodules largest [...] Jr., D.OJennifer 03/30/2025 11:44 AM Dictation Location: [place] [address] Transcribed By: [facility] 03/30/25 1144 Dictated By: Andres Wallis Jr, DO 03/30/25 1134 Signed By: <Electronically signed by Andres Wallis Jr, DO in OV> 03/30/25 1144 Vital Signs Vital Reading Result Reference Range Collection Date/Time Weight 73.93 kg March 21, 2025 12:10pmHeart Rate69 /yoi66-348Pugzqmkwq 15th, 2025 12:10pm Respiratory rate20 /qmd40-95Nracvsxow 15th, 2025 12:10pmOxygen saturation by Pulse inyuetec40 %95-100Sept2024 12:10pmBP Tvnrwizc198 mm[Hg]100-140 March 21, 2025 12:10pmBP Xzvhhdtuq51 mm[Hg]60-100Sept2024 12:92tdZkadzi39.57 kgSept2024 12:13pmBody Ojgszgttdim40.7 [degF] 97.6-99.0Sept2024 12:13pmHeart Rate69 /qkk00-523Mgxjgjanr 29th, 2025 12:13pmRespiratory rate16 /xtf95-81Wnjtnqund 29th, 2025 12:13pmOxygen saturation by Pulse qbiawbpx04 %95-100Sept2024 12:13pmBP Hmpilumq671 mm[Hg]100-140Sept2024 12:13pmBP Jhjpfwfta12 mm[Hg]60-100September 2024 12:74otEvnkqs67.21 kgOctpaintsville arh hospital 2024 10:36amBody Xtccashpdrg97.1 [degF]97.6-99.0[facility] 2024 10:36amHeart Rate71 /gjk46-405Tzanubo 2024 10:36amRespiratory rate18 /ykr61-72Smihehq 2024 10:36amOxygen saturation by Pulse lubhjmcc39 %95-100[facility] 2024 10:36amBP Tciaglnq933 mm[Hg]100-140[facility] 2024 10:36amBP Ucasrqwwx78 mm[Hg]60-100[facility] 2024 10:49uwKtrylx41.85 [facility] 2024 10:30amBody Dppwlbdxjfj71 [degF] 97.6-99.0[facility] 2024 9:54amHeart Rate63 /eii43-258Adzdjrck 17th, 2025 9:54amRespiratory rate16 /etb66-54Wjdlceje 17th, 2025 9:54amOxygen saturation by Pulse vaovettp16 %95-100[facility]2024 9:54amBP Eesrrgus850 mm[Hg]100-140 May 23, 2025 9:54amBP Swewxjnry99 mm[Hg]60-100Nov2024 9:54am Joymyx21 [in_i]September 06, 2024 12:59zoZvkpdh84.85 [facility] 2024 10:30am Body Zjwetnzctts55.5 [degF]97.6-99.0[facility]2024 10:46amHeart Rate58 /min 60-100May 09, 2025 10:46amRespiratory rate16 /kfo72-28EbspvwvkMay 09, 2025 10:46amOxygen saturation by Pulse xtbsttli73 %95-100Nov2024 10:46amBP Hmkrpafz355 mm[Hg]100-140Nov2024 10:30amBP Vibewxnuc18 mm[Hg]60-100 May 23, 2025 10:30am Advance Directives Advance Directive Response Recorded Date/ Time Advance Directives No May 06, 2022 6:27am Insurance Providers Guarantor Marysol Jacobson Address [address] [facility] [address]Raukvja Info.Home Phone: Coverage Status Update:2025 Payer Group Member ID Coverage Type Subscriber Relationship to Subscriber Effective Date Expiration Date O [facility] Id: [id number] [place] Id: [id number] [address] [facility] [address] Home Phone: Email: [email or web address] Id: [id number] [place] Id: [id number] [address] [facility] [address] Home Phone: Email: [email or web address] Encounters Encounter Location(s) Arrival/Admit Date Discharge/Departure Date Discharge/Departure Disposition Provider(s) Non-patient / Non-visit -[facility] March 17, 2025 12:02pm Timmy Jordan II DODeparted Physician/Provider Office Visit-[facility] AmbulatorySeptember 2024 1:06pmSept2024 2:07pm Discharged to home care or self care (routine discharge)Timmy Jordan II DODeparted Physician/Provider Office Visit-[facility] AmbulatorySeptember 2024 1:09pmSeptember 2024 2:17pmDischarged to home care or self care (routine discharge)Timmy Jordan II DONon-patient / Vis-cvzca[facility] 2024 12:09pmOutside ProviderNon-patient / Ftl-alkfs-[facility] 2024 8:15amTimmy Jordan II DONon-patient / Bez-umgfi-[facility]eh[facility] 2024 12:45pmTimmy Jordan II DODeparted Physician/Provider Office [facility]October 2024 11:32amOctober 2024 12:20pmDischarged to home care or self care (routine discharge)Danielle Deleon-patient / Btt-oknjg-[facility]gfyt [facility] 2024 11:49amTimmy Jordan II DODeparted Physician/Provider Office Visit- [facility] AmbulatoryNovember 2024 9:48amNovember 2024 10:54am Discharged to home care or self care (routine discharge)Timmy Jordan II DORegistered Recurring-[facility] AcuteNovember 2024 10:25amTimmy Jordan II DO Recent Diagnosis Onset Date Admit Date Chemotherapy-induced nausea Unknown Octo 2024 11:32am Chemotherapy-induced peripheral neuropathy Unkno wn May 05, 2025 11:32am Colon cancer metastasized to lung Unknown May 05, 2025 11:32am Encounter for chemotherapy management Unknown May 05, 2025 11:32am Abnormal LFTs Unknown May 23, 025 10:25am Chemotherapy-induced peripheral neuropathy Unkno wn May 23, 2025 10:25am Colon cancer Unknown May 23, 025 10:25am Encounter for chemotherapy management Unknown May 23, 2025 10:25am Assessments Diagnosis Onset Date Resolution Status Admit Date Chemotherapy-induced nausea acuteOct2024 11:32amChemotherapy-induced peripheral neuropathyacute May 05, 2025 11:32amColon cancer metastasized to lungacuteOctober 2024 11:32amEncounter for chemotherapy managementacuteOct2024 11:32am Abnormal LFTsacuteNovember 2024 10:25amChemotherapy-induced peripheral neuropathyacuteNovember 2024 10:25amColon canceracuteNovember 2024 10:25amEncounter for chemotherapy managementacuteNov2024 10:25am Plan of Treatment Author Inessa Mims [facility] 2024 11:32am1: FOLFIRI cycle #1 day 1 was given on 04/25/2025. Cycle #2 Day 1 FOLFIRI + Bevacizumab is scheduled for 05/09/2025. R upper lobe biopsy of pulmonary nodule completed by Dr. Moore on 04/11/2025: Tumor cells positive for CDX2 and CK20. Consistent with colorectal adenocarcinoma versus lung primary. The patient states she received notification Tempus was ordered. Labs drawn 05/04/2025: WBC 3.6, RBC 3.03, Hgb 12.4, PLT 199, iron sat 19.2%, ferritin 229.0. Liver enzymes and electrolytes normal indices. She is interested in an academic consult and has come up with two provider names, she would like Merlin TOUSSAINT or Zachary Butcher at [facility] Side effects of bevacizumab provided. Port insertion site healing nicely, this was added to cycle #2. She plans on joining an integrative health team online, [employer], includes diet, supplementation interventions. F/U with Dr. Belle cycle #3 day 1, sooner if increased symptoms. 05/05/2025: Reports neuropathy resolved after completion of FOLFOX therapy, denies current neuropathy. Continue to monitor. 05/05/2025: FOLFIRI cycle #1 started 04/25/2025. Cycle #2 Day 1 FOLFIRI + Bevacizumab is scheduled for 05/09/2025. Reports minimal side effects including grade 1 diarrhea, no intervention, has loperamide at home if needed, and also reports nausea starting day 2-day 4, nausea controlled with ondansetron and Compazine. 05/05/2025: Positive for intermittent nausea worse day 2 of treatment, improved as time passed, took ondansetron helped somewhat then took Compazine which helped much more, no vomiting, no nausea currently, continue same anti-nausea regimen. Future Tests Future scheduled test information is unavailable Pending Tests Test Name Ordered Date Scheduled Date Comprehensive Metabolic Panel April 05 8:54am 1 Days Comprehensive Metabolic Panel April 05 8:54am 1 Days Comprehensive Metabolic Panel April 05 8:54am 1 Days Comprehensive Metabolic Panel April 05 8:54am 1 Days Comprehensive Metabolic Panel April 25, 2025 1:29pm Comprehensive Metabolic PanelMay 09, 2025 3:07pmComprehensive Metabolic PanelSeptember 2024 1:04pm2 Weeks Future Visits Future appointment information is unavailable Future Procedures Procedure Name Ordered Date Scheduled Date Complete Blood Count Auto Diff April 05 025 8:54am 1 Days Complete Blood Count Auto Diff April 05 025 8:54am 1 Days Complete Blood Count Auto Diff April 25 1:29pm Complete Blood Count Auto DiffNov2024 3:07pmComplete Blood Count Auto DiffSeptember 2024 8:54am1 DaysComplete Blood Count Auto DiffSept2024 8:54am1 Days[facility] ClinicDece2022 11:32am 3 MonthsHistology (Oncology)April 19, 2025 12:51pm1 DaysProceed with TreatmentFebruary 2022 9:06amProceed with TreatmentFebruary 2022 9:35amRISE OrderMay 2022 2:56pm1 WeeksConsult to [facility]itianN[facility], [facility]2024 3:50pmNovember 2024 3:50pmPatient Navigator Distress ScreeningFebruary 2022 10:12amFebruary 2022 10:12amCreatinine, Urine (Random) April 05, 2025 8:54amOctober 2024 11:00pmCreatinine, Urine (Random) April 05, 2025 8:54amNovember 2024 12:00amTotal Protein, Urine April 05, 2025 8:54amOctober 2024 11:00pmTotal Protein, Urine April 05, 2025 8:54amNovember 2024 12:00amANC>=1500Sept2024 8:54amOctober 2024 11:00pmANC>=1500September 2024 8:54am May 09, 2025 12:00amANC>=1500September 2024 8:54amNovember 2024 12:00amBilirubin<=1.5Sept2024 8:54amOctober 2024 11:00pm Bilirubin<=1.5September 2024 8:54amNovember 2024 12:00am Bilirubin<=1.5September 2024 8:54amNovember 2024 12:00amBlood Pressure< 160/90September 2024 8:54amNovember 2024 12:00amBlood Pressure< 160/90September 2024 8:54amNovember 2024 12:00amBlood Pressure< 160/90September 2024 8:54amOctober 2024 11:00pmHold & Call Ordering Physician if Pt Does Not Meet CriteriaSeptember 2024 8:54am April 24, 2025 11:00pmHold & Call Ordering Physician if Pt Does Not Meet CriteriaSeptember 2024 8:54amNovember 2024 12:00amHold & Call Ordering Physician if Pt Does Not Meet CriteriaSeptember 2024 8:54am May 23, 2025 12:00amApply O2 via Nasal Cannula 4L to Maintain SpO2 of >=90%April 05, 2025 8:54amOctober 2024 11:00pmApply O2 via Nasal Cannula 4L to Maintain SpO2 of >=90%April 05, 2025 8:54amNovember 2024 12:00amApply O2 via Nasal Cannula 4L to Maintain SpO2 of >=90%April 05, 2025 8:54amNovember 2024 12:00amOrders Panel Function Communication OrderMarch 2022 8:06amMarch 2022 8:06amOrders Panel Function Communication OrderApril 2022 1:40pmApril 2022 1:40pmOrders Panel Function Communication OrderOctober 2024 3:32pmOctober 2024 3:32pm Orders Panel Function Communication OrderDecember 2021 3:51pmDecember 2021 3:51pmOrders Panel Function Communication OrderMarch 2022 1:42pmMarch 2022 1:42pmOrders Panel Function Communication OrderApril 2022 2:54pmApril 2022 2:54pmOrders Panel Function Communication OrderMay 2022 7:44amMay 2022 7:44amPlatelets>=100,000September 2024 8:54amOctober 2024 11:00pmPlatelets>=100,000Sept2024 8:54amNovember 2024 12:00amPlatelets>=100,000September 2024 8:54am May 23, 2025 12:00amTreat w/ UPC Ratio < 3. Hold for UPC >/=3.April 05, 2025 8:54amOctober 2024 11:00pmTreat w/ UPC Ratio < 3. Hold for UPC >/=3.April 05, 2025 8:54amNovember 2024 12:00amTreat w/ UPC Ratio < 3. Hold for UPC >/=3.April 05, 2025 8:54amNovember 2024 12:00am Complete Blood Count Auto DiffSeptember 2024 1:04pm2 WeeksCarcinoembryonic AntigenSeptember 2024 1:04pm2 WeeksOncology Kit Courtesy DrawOct2024 12:28pmCarcinoembryonic AntigenNovember 2024 10:36am2 Weeks Carcinoembryonic AntigenNovnorthwest medical center 2024 10:35am2 MonthsPET tumor subq tx strat sb-mtNovember 2024 10:35am2 Months Future Medications Future medication information is unavailable Patient Instructions Instruction Admit Date Bevacizumab Irinotecan (Conventional)April 04, 2025 1:09pm Goals Acute Goals Author Authored Date Maintain/increase activity bowen perez * Understands factors that may lead to activity intolerance * Helps perform self care activities * Maintains maximum range of motion * Increase/regain muscle mass and strength * Maintains VS WNL during activity * Maintain intact skin integrity Updated: 3Kalisha [facility] 2022 11:32am
--- OUTSIDE RECORDS SUMMARY | 2025-06-04 10:37 | XMS_ITS | Encounter Summary ---
Author Organization [facility] Address [address] [place] [address] Care Team Providers Care Hr Representative Name Role Phone Melissa Worthy MD Primary Care Provider Encounter Details DateTypeDepartmentCare Team (Latest Contact Info)Qoxyfcdpgwz96/17/2025External Result Encounter [facility] Unsolicited Timmy Jordan, DO [address] [place] [address] Social History Tobacco UseTypesPacks/DayYears UsedDateSmoking Tobacco: NeverSmokeless Tobacco: NeverAlcohol UseStandard Drinks/WeekCommentsYes0 (1 standard drink = 0.6 oz pure alcohol)occCommentsUnknownSex and Gender InformationValueDate Recorded Sex Assigned at BirthNot on fileLegal LduNtiswv29/15/2023 7:32 PM EDTGender IdentityNot on fileSexual OrientationNot on filedocumented as of this encounter Plan of Treatment Not on file documented as of this encounter Procedures Procedure NamePriorityDate/TimeAssociated DiagnosisCommentsTOTAL PROTEIN, URINE Taxrsiw0505/23/2025 2:03 PM EST CREATININE, RANDOM OSOXMOhonuml58/17/2025 2:03 PM EST documented in this encounter Results * TOTAL PROTEIN, URINE (05/23/2025 2:03 PM EST)ComponentValueRef RangeTest MethodAnalysis TimePerformed AtPathologist SignatureTOTAL PROTEIN, URINE<40 - 9 mg/dL05/23/2025 2:52 PM [facility] CtrSpecimen (Source) Anatomical Location / LateralityCollection Method / VolumeCollection Time Received BcytToafu06/17/2025 2:03 PM EST05/23/2025 2:10 PM EST Narrative Authorizing ProviderResult TypeResult StatusTimevangelina Jordan DOLAB BLOOD ORDERABLESFinal ResultPerforming OrganizationAddressCity/State/ZIP CodePhone Number [address] [place] [address], [facility] [address] [place] [address] * Creatinine, urine, random (05/23/2025 2:03 PM EST)ComponentValueRef RangeTest MethodAnalysis TimePerformed AtPathologist SignatureCREATININE, URINE (RANDOM) 22.00mg/dL05/23/2025 2:48 PM [facility] CtrComment:No reference range establishedSpecimen (Source)Anatomical Location / Laterality Collection Method / VolumeCollection TimeReceived MephYmzeo19/17/2025 2:03 PM EST05/23/2025 2:10 PM EST Narrative Authorizing ProviderResult TypeResult StatusTimevangelina Jordan DOLAB URINE ORDERABLESFinal ResultPerforming OrganizationAddressCity/State/ZIP CodePhone Number [address] [place] [address], [facility] [address] [place] [address] documented in this encounter Visit Diagnoses Not on filedocumented in this encounter Care Teams Team MemberRelationshipSpecialtyStart DateEnd Date Melissa Worthy MD [address] [place] [address] PCP - GeneralFamily Medicine12/14/24documented as of this encounter
--- OUTSIDE RECORDS SUMMARY | 2025-06-04 10:37 | XMS_ITS | Clinical Summary ---
Author Organization [facility] Address [id number] [address] [place] [address] Care Team Providers Care Snow Shoveler Name Role Phone Melissa Worthy MD Primary Care Provider [phone] Allergies Active AllergyReactionsCriticalityNoted DateCommentsCodeineGI Disturbance 02/19/2023HydrocodoneNausea And YaxlueczRrmk41/15/2022 Patient reports it was many years ago [...] TAKE 1 CAPSULE BY MOUTH ONCE DAILY CTFHKE0102/19/2023ctive omeprazole (PriLOSEC) 20 mg capsule PATIENT REPORTS NEEDED 01/16/2023ctive omega 2-tmj-icg-fish oil (Fish OiL) 300-1,000 mg capsule Take by mouth.Active glucosamine-chondroitin 500-400 mg tablet Take 1 tablet by mouth 3 (three) times a day.Active Active Problems ProblemNoted DateDiagnosed DateFemale pelvic congestion /17/2023 Glaucoma of both eyes05/15/2022ostpartum nbdofjys85/09/2022 Encounters DateTypeDepartmentCare LrleHrrrukbjqjx76/06/2025Telephone [facility] [address] [address] Yoselin Lo RMA from Last [...] InformationValueDate RecordedSex Assigned at BirthNot on fileLegal UsxZdbmoi28/08/2022 3:24 PM EDTGender IdentityNot on fileSexual OrientationNot on file Last Filed Vital Signs Vital SignReadingTime TakenCommentsBlood Oetgqdpz746/6009 11:29 AM EDT Ydfqn5030 11:29 AM GEAYtpbawxglfc81.2 ??C (97.1 ??F)06/07/2022 10:01 AM ESTRespiratory Rate--Oxygen Saturation--Inhaled Oxygen Concentration--Nojcnr05.7 kg (160 lb 3.2 oz)03/25/2024 11:29 AM ZYLExlgjx689.6 cm (5' 4 )03/25/2024 11:29 AM EDTBody Mass Index27.509 11:29 AM EDT Plan of Treatment Health MaintenanceDue DateLast DoneCommentsDepression Giflwsndy28/28/1978 DTaP,Tdap and Td Vaccines (1 - Tdap)1985Pap Smear1987Zoster (Shingles) Vaccine (1 of 2)2016COVID-19 Vaccine ( - season) , 04/27/2021, 08/02/2020, Additional history existsInfluenza Kamamhm8903/07/2025dult BMI Ncfemsyvu29/Tobacco Screening olonoscopy/07/2022, 03/13/2022 Medical Devices Not on [...] MemberRelationshipSpecialtyStart DateEnd Date Melissa Worthy MD [address] [place] [address] PCP - GeneralFamily Medicine03/19/23
--- OUTSIDE RECORDS SUMMARY | 2025-06-04 10:37 | XMS_ITS | Clinical Summary ---
Author Organization [facility] Address [address] [place] [address] Care Team Providers Care Chair Mechanic Name Role Phone Melissa Worthy MD Primary Care Provider [phone] Allergies Active AllergyReactionsCriticalityNoted DateCommentsCodeineGI intolerance 02/19/20230490DojdhxevryiLnio89/15/2022 Other Reaction(s): Nausea, Nausea And Vomiting Patient reports it was many years ago Medications MedicationSigDispense QuantityRefillsLast FilledStart DateEnd DateStatus ondansetron (Zofran) 8 MG tablet Take 8 mg by mouth every 8 (eight) hours if needed for nauseaActive latanoprost (Xalatan) 0.005 % ophthalmic solution INSTILL 1 DROP INTO EACH EYE IN THE EVENING GMIGPCHT43/19/2024Active dorzolamide-timolol (Cosopt) 2-0.5 % ophthalmic solution INSTILL 1 DROP INTO EACH EYE TWICE DAILY XNCIIOIF68/09/2025Active brimonidine (AlphaGAN P) 0.2 % ophthalmic solution INSTILL 1 DROP INTO EACH EYE TWICE DAILY TOEBMEJT23/03/2025Active loratadine (Claritin) 10 MG tablet Daily5Active pantoprazole (ProtoNix) 40 MG EC tablet Daily5Active omega-3 1000 MG capsule capsule Take by mouth4Active famotidine (Pepcid) 20 MG tablet Indications:LPRD (laryngopharyngeal reflux disease)Take 1 tablet (20 mg) by mouth at bedtime 90 tablet 5Active Active Problems ProblemNoted DateDiagnosed DateAbnormal LFTs12/20/2024hemotherapy-induced peripheral ayxqbrbktv10/16/2025Colon ekwhvv4112/20/2024Encounter for chemotherapy gdecooczkn74/16/4291Wkoncwcwbahuxc95/16/2025Pharyngitis, xoydwwk4812/20/2024 Salivary gland fsvynqrbqug17/16/2025Situational zdnanhu0512/20/2024Female pelvic congestion cgyduchd10/17/2023laucoma of both eyes05/15/2022ostpartum bleeding ([facility])05/15/2022 Encounters DateTypeDepartmentCare LrfgSndawwxlfev49/17/2025External Result Encounter [facility] External Department Unsolicited Timmy Jordan, DO 05/09/2025External Result Encounter [facility] External Department Unsolicited Timmy [...] Recorded Sex Assigned at BirthNot on fileLegal JxtImpuvw10/15/2023 7:32 PM EDTGender IdentityNot on fileSexual OrientationNot on file Last Filed Vital Signs Vital SignReadingTime TakenCommentsBlood Hrkzcgqs547/2473012/21/2024 8:32 AM EDT Crshw820512/21/2024 8:32 AM EDTTemperature--Respiratory Rate--Oxygen Saturation-- Inhaled Oxygen Concentration--Ielamm41.1 kg (159 lb)12/21/2024 8:32 AM EDTHeight 162.6 cm (5' 4 )02/19/2023 11:44 AM EDTBody Mass Index27.29002/19/2023 11:44 AM EDT Plan of Treatment Health MaintenanceDue DateLast DoneCommentsCT Zyvmtukolbfj1966FIT-DNA 1966FIT1966FOBT1966 0686Ofbnjheilxqbq1966Pap Smear1987 Cervical Cancer Jjdmgymqb70/28/1996HPV/Mcycbl1604/03/19966075Gtxmxsyyf31/28/2006COVID- 19 Vaccine ( season)/04/2022, 04/27/2021, 08/02/2020, Additional history existsInfluenza Vaccine (#1)/4Colonoscopy /07/2022, 2Colorectal Cancer Vjgvaboss05/01/2033 Pneumococcal Vaccine: Pediatrics (0 to 5 Years) and At-Risk Patients (6 to 64 Years)Aged OutNo longer eligible based on patient's age to complete this topic Procedures Procedure NamePriorityDate/TimeAssociated DiagnosisCommentsTOTAL PROTEIN, URINE Eavrqyu9005/23/2025 2:03 PM EST CREATININE, RANDOM NOZUJJgsyzcf64/17/2025 2:03 PM EST TOTAL PROTEIN, HCKPHDtmoges88/03/2025 3:13 PM EST CREATININE, RANDOM WRHUWZrduyex49/03/2025 3:13 PM EST PET/CT SKULL BASE TO MID THIGH03/30/2025 11:34 AM EDT GLUCOSE POCT HCTBFZBJDZPWalpomy80/24/2025 8:38 AM EDT from Last 3 Months Results * TOTAL PROTEIN, URINE (05/23/2025 2:03 PM EST) Only the most recent of2 resultswithin the time period is included. ComponentValueRef RangeTest MethodAnalysis TimePerformed AtPathologist Signature TOTAL PROTEIN, URINE<40 - 9 mg/dL05/23/2025 2:52 PM ESTUniversity Hospitals Ely[facility] Center CtrSpecimen (Source)Anatomical Location / LateralityCollection Method / VolumeCollection TimeReceived TiloAkbdq43/17/2025 2:03 PM EST05/23/2025 2:10 PM EST Narrative Authorizing ProviderResult TypeResult StatusTimmy Jordan DOLAB BLOOD ORDERABLESFinal ResultPerforming OrganizationAddressty/State/ZIP CodePhone Number [facility] [address] [place] [address], [facility] Ctr [address] [place] [address] * Creatinine, urine, random (05/23/2025 2:03 PM EST) Only the most recent of2 resultswithin the time period is included. ComponentValueRef RangeTest MethodAnalysis TimePerformed AtPathologist Signature CREATININE, URINE (RANDOM)22.00mg/dL05/23/2025 2:48 PM [facility] CtrComment:No reference range establishedSpecimen (Source)Anatomical Location / LateralityCollection Method / VolumeCollection TimeReceived TimeOther 05/23/2025 2:03 PM EST05/23/2025 2:10 PM EST Narrative Authorizing ProviderResult TypeResult StatusTimevangelina Jordan DOL URINE ORDERABLESFinal ResultPerforming OrganizationAddressCity/State/ZIP CodePhone Number [facility] [address] [place] [address], [facility] [address] [place] [address] * PET/CT skull base to mid thigh [...] MRI is recommended. ? Impression dictated by: Olaf Harden Jr..O. ??03/30/2025 11:44 AM ? Dictation Location: RADIO-PC-22 ? Transcribed By: ? PWS ?03/30/25 1144 ? Dictated By: ?Andres Wallis Jr, DO ?03/30/25 1134 ? Signed By: <Electronically signed by Andres Wallis Jr DO in OV> ?03/30/25 1144 Narrative 03/30/2025 11:46 AM EDT [facility] ?[facility] Main [place] ?[address] ? [place] [address] ?Nuclear Medicine Report ? Signed ? Patient: Marysol Jacobson ?MR#: [id number] ?? 22 ? : 1965 ?Acct:[id number] ? Age/Sex: 59 / F ?ADM Date: 03/30/25 ? Loc: PE ?Room: ?Type: REG RCR ?? Attending Dr: Carlyn Turner APRN ?? Copies to: Andres Wallis Jr, ?? Carlyn Turner APRN ?? Timmy Jordan [...] Procedure Note Andres Wallis Jr., - 03/30/2025 [facility] [place] [address] Nuclear Medicine Report Signed Patient: Marysol Jacobson#: [id number] 22 : 1965Acct:[id number] Age/Sex: 59 / FADM Date: 03/30/25 Loc: Room:Type: [facility] RCR Attending Dr: Carlyn Turner [employer] Copies to: Andres Wallis Jr, DO Mary [...] Jr., D.OJennifer 03/30/2025 11:44 AM Dictation Location: [place] [address] Transcribed By: [facility] 03/30/25 1144 Dictated By: Andres Wallis Jr, DO 03/30/25 1134 Signed By: <Electronically signed by Andres Wallis Jr DO inOV> 03/30/25 1144 Authorizing ProviderResult TypeResult StatusTimmy Jordan [facility] CT PROCEDURESFinal Result * GLUCOSE POCT GLUCOMETERS (03/30/2025 8:38 AM EDT)ComponentValueRef RangeTest MethodAnalysis TimePerformed AtPathologist SignatureGLUCOSE POC PWYYWMSERPV189 mg/dL03/30/2025 9:07 AM EDTFIRELANDSComment: Random Glucose Reference [...] NPLAB BLOOD ORDERABLESFinal ResultPerforming OrganizationAddressCity/State/ZIP CodePhone Number [facility] [address] [place] [address], from Last 3 Months Insurance Care Teams Team MemberRelationshipSpecialtyStart DateEnd Melissa Worthy MD [address] [place] [address] PCP - GeneralFamily Medicine12/14/24
--- OUTSIDE RECORDS SUMMARY | 2025-06-04 10:38 | XMS_ITS | Clinical Summary ---
Author Organization [facility] Address [address], [address] [place] [address] Care Team Providers Care Software Configuration Manager Name Role Phone Melissa Worthy MD Primary Care Provider [phone] Allergies Active AllergyReactionsCriticalityNoted DateCommentsCodeineOther (See Comments) 02/19/2023 Other Reaction(s): GI Disturbance HydrocodoneNausea And VgapvlxjYils67/15/2022 Patient reports it was many years ago Other Reaction(s): Nausea, Nausea And Vomiting Patient reports it was many years ago Medications MedicationSigDispense QuantityRefillsLast FilledStart DateEnd DateStatus Cholecalciferol (VITAMIN D3 PO) Take 1,000 mg by mouthActive brimonidine (ALPHAGAN) 0.2 % ophthalmic solution INSTILL 1 DROP INTO EACH EYE TWICE DAILY IZCVIGRL19/03/2025Active dorzolamide-timolol (COSOPT) 2-0.5 % ophthalmic solution INSTILL 1 DROP INTO EACH EYE TWICE DAILY DIRECTEDActive latanoprost (XALATAN) 0.005 % ophthalmic solution INSTILL 1 DROP INTO EACH EYE IN THE EVENING BPQFTZVI98/19/2024Active ondansetron (ZOFRAN) 8 MG tablet Take 1 tablet by mouth every 8 hours as neededActive pantoprazole (PROTONIX) 40 MG tablet Take 1 tablet by mouth dailyActive BETA GLUCAN PO Take by mouthActive Active Problems ProblemNoted DateDiagnosed DateLung dfirxu9904/12/2025 Encounters DateTypeDepartmentCare BzpoVaekshwboud77/07/2025Post-op Telephone [facility] Special Procedure [address] [place] [address] [phone] Tereza Hernandez RN 04/11/2025 3:58 PM EDT - 04/13/2025 11:59 PM EDTHospital Encounter [facility] Radiology [address] [place] [address] Discharge Disposition: Home or Self Care04/11/2025 1:00 PM EDT - 04/13/2025 11:59 PM EDTHospital Encounter [facility] CT Scan [address] [place] [address] Ender Sanchez MD Lung nodule Discharge Disposition: Home or Self Care04/11/2025Orders Only [facility] Vascular and Interventional Radiology [address] [place] [address] [place] [address] Arielle Daly MA Pre-operative laboratory examination; Lung lddvaw8204/08/2025Telephone [facility] Special Procedure [address] [place] [address] Cynthia Gallagher RN 04/06/2025 11:30 AM EDTOffice Visit [facility] Vascular and Interventional Radiology [address] [place] [address] Steph Casiano PA-C Pre-operative laboratory examination (Primary Dx); Lung nodule; Malignant neoplasm of colon, unspecified part of colon (HCC)04/06/2025Telephone [facility] Vascular and Interventional Radiology [address] [place] [address] Ender Sanchez MD Nepyrqhon55/23/2025bstract [facility] Pulmonology [address] [address] Ender Sanchez MD from Last 3 Months Social History Tobacco UseTypesPacks/DayYears UsedDateSmoking Tobacco: Never Assessed CommentsUnknownSex and Gender InformationValueDate RecordedSex Assigned at Dfturk1504/10/2025 7:32 PM EDTLegal HpxBjdqop69/23/2025 3:06 PM EDTGender Identity Cjbjph4504/10/2025 7:32 PM EDTSexual VqeofqmjtafTaibqhzi34/05/2025 7:32 PM EDT Last Filed Vital Signs Vital SignReadingTime TakenCommentsBlood Kcozueie179/7204/11/2025 3:45 PM EDT Crcin054504/11/2025 3:45 PM NQRSjogqqgguja74.8 ??C (98.3 ??F)04/11/2025 1:30 PM EDTRespiratory Rpge703504/11/2025 3:45 PM EDTOxygen Smnfzdblry06%04/11/2025 3:45 PM EDTInhaled Oxygen Concentration--Oxjjmw20.2 kg (157 lb)04/11/2025 1:30 PM EDT Puybdn998.6 cm (5' 4 )04/11/2025 1:30 PM EDTBody Mass Index26.9504/11/2025 1:30 PM EDT Plan of Treatment Health MaintenanceDue DateLast DoneCommentsDepression Svxrlj9404/03/1978HIV screen 1981Hepatitis C qkvrfu3104/03/1984DTaP/Tdap/Td vaccine (1 - Tdap)1985 Hepatitis B vaccine (1 of 3 - 19+ 3-dose series)1985Pap smear1987 Cervical cancer ertqnz7004/03/1996HPV (without or with Pap)1996Diabetes lvwhxl8504/03/2001Breast cancer hxgotx0504/03/20066156Obnaxc62/28/2006Colonoscopy 2011Colorectal Cancer Ooxrlk9404/03/2011FIT/FOBT: Average risk2011 Fecal-DNA (Cologuard): Average risk2011Sigmoidoscopy/CT colonography [...] Procedures Procedure NamePriorityDate/TimeAssociated DiagnosisCommentsXR CHEST (2 VW) Dzsqtlu2904/11/2025 4:[address] NEEDLE BIOPSY LUNG PERCUTANEOUS W IMAGING WZZBHQSWAipgptu88/06/2025 2:54 PM EDT Lung nodule SURGICAL VPODHGIADDSNZ13/06/2025 9:39 AM EDT from Last 3 Months Results * XR CHEST (2 VW) (04/11/2025 4:06 PM EDT)Anatomical RegionLateralityModality ChestComputed RadiographySpecimen (Source)Anatomical Location / Laterality Collection Method / VolumeCollection TimeReceived QkhbDhlim29/06/2025 4:08 PM EDT Impressions 04/11/2025 4:08 PM [...] signed by Ender Sanchez Narrative Procedure Note Enedr Sanchez MD - 04/12/2025 IMPRESSION: 1. Successful core [...] Ender Sanchez Authorizing ProviderResult TypeResult StatusOlivipatricio Casiano [place]-[facility] CT ORDERABLES Final Result * Surgical Pathology (04/11/2025 9:39 AM EDT)Specimen (Source)Anatomical Location / LateralityCollection Method / VolumeCollection TimeReceived Time 04/11/2025 9:39 AM EDT1 9:39 AM EDT [facility] LAB - 04/14/2025 12:54 PM EDT [facility] Lab Services ? [address] ? [place], [place] ??[address] ? [phone] FINAL SURGICAL PATHOLOGY REPORT Patient Name: ??MARYSOL GARDNER ?Accession No: ??[id number] Age Sex: ?? 1965 ? Location: ?DIS Account No: ?[id number] ?Collected: ? 04/11/2025 Med Rec No: ?[id number] ? Received: ?04/12/2025 Attend Phys: ?? ENDER [...] A LUNG PRIMARY. CLINICAL CORRELATION IS NECESSARY. JACOK/JACOK CLINICAL INFORMATION: Results to Dr. Garcia. Right [...] biopsy bag where the core is present. ?[facility] CPT: 13503 X1 ?? 73954 X2 ?? 41207 X1 Arnel DONNELLY M.D. ??04/14/2025 Electronically signed out by ? Page 1of 1 Authorizing ProviderResult TypeResult StatusTimevangelina Garcia PATHOLOGY/CYTOLOGY ORDERABLESFinal ResultPerforming OrganizationAddress City/State/ZIP CodePhone Number [facility] [address] [facility] [place] [address], [facility] [phone] from Last 3 Months Insurance Care Teams Team MemberRelationshipSpecialtyStart DateEnd Date Melissa Worthy MD [address] [place] [address] [facility] Blrtqqyh35/6/25
[2025-06-04 10:53] LABS: Hematocrit 37.8 % (36.0-48.0); Hemoglobin 12.6 g/dL (12.0-16.0); Immature Granulocytes Abs Auto 0.01 10^3/uL (0.00-0.03); Immature Granulocytes Pct Auto 0.3 % (0.0-0.5); Lymphocytes Absolute Auto 0.8 10^3/uL (1.2-3.8); Mean Corpuscular HGB Conc 33.3 g/dL (29.9-35.2); Mean Corpuscular Hemoglobin 31.5 pg (26.7-34.0); Mean Corpuscular Volume 94.5 fL (81.0-99.0); Platelet Count 150 10^3/uL (150-450); Red Blood Count 4.00 10^6/uL (4.20-5.40); White Blood Count 3.9 10^3/uL (4.0-11.0)
[2025-06-04 11:14] LABS: Alanine Aminotransferase 32 U/L (14-59); Albumin Globulin Ratio 1.0; Albumin Level 3.5 g/dL (3.4-5.0); Alkaline Phosphatase 80 U/L (46-116); Anion Gap 8.3; Aspartate Amino Transferase 16 U/L (15-37); Blood Urea Nitrogen 8.0 mg/dL (7.0-18.0); Calcium 9.4 mg/dL (8.5-10.1); Carbon Dioxide 27.0 mmol/L (21.0-32.0); Chloride 102 mmol/L (98-107); Estimated GFR (African America >60 (>=60 mL/min/1.73m^2); Estimated GFR (Non-African Ame >60 (>=60 mL/min/1.73m^2); Globulin 3.5 g/dL; Glucose 134 mg/dL (74-106); Potassium 4.3 mmol/L (3.5-5.1); Sodium 133 mmol/L (136-145); Total Protein 7.0 g/dL (6.4-8.2)
== END 2025-06-04 10:33 | disposition home or self-care (01) ==
LOC: LAB 10:34
PROVIDERS: PCP Family Medicine; Visit Provider Internal Medicine
DX: C18.9 Malignant neoplasm of colon, unspecified (principal)
CPT/HCPCS: 36415; 80053; 85025

== ENCOUNTER 2025-06-18 12:38 | Outpatient (OUT) | payer BC, SELFPAY ==
--- OUTSIDE RECORDS SUMMARY | 2025-06-18 12:45 | XMS_ITS | Clinical Summary ---
Author Organization [facility] Address [id number] [address] [place] [address] Care Team Providers Care Service Tech Name Role Phone Melissa Worthy MD Primary Care Provider [phone] Allergies Active AllergyReactionsCriticalityNoted DateCommentsCodeineGI Disturbance 02/19/2023HydrocodoneNausea And NyrdptqaBufl42/15/2022 Patient reports it was many years ago [...] TAKE 1 CAPSULE BY MOUTH ONCE DAILY BZEIVK4502/19/2023ctive omeprazole (PriLOSEC) 20 mg capsule PATIENT REPORTS NEEDED 01/16/2023ctive omega 7-zjb-dww-fish oil (Fish OiL) 300-1,000 mg capsule Take by mouth.Active glucosamine-chondroitin 500-400 mg tablet Take 1 tablet by mouth 3 (three) times a day.Active Active Problems ProblemNoted DateDiagnosed DateFemale pelvic congestion /17/2023 Glaucoma of both eyes05/15/2022ostpartum mtfemedx69/09/2022 Encounters DateTypeDepartmentCare KjczGksupwaobcn18/06/2025Telephone [facility] [address] [place] [address] Yoselin Lo RMA from Last [...] InformationValueDate RecordedSex Assigned at BirthNot on fileLegal WxkAkoovs78/08/2022 3:24 PM EDTGender IdentityNot on fileSexual OrientationNot on file Last Filed Vital Signs Vital SignReadingTime TakenCommentsBlood Xtlwtmfw802/6009 11:29 AM EDT Fmeph8450 11:29 AM VFNLaypsofsrfk49.2 ??C (97.1 ??F)06/07/2022 10:01 AM ESTRespiratory Rate--Oxygen Saturation--Inhaled Oxygen Concentration--Jbcdiy39.7 kg (160 lb 3.2 oz)03/25/2024 11:29 AM RLKAzwzji473.6 cm (5' 4 )03/25/2024 11:29 AM EDTBody Mass Index27.509 11:29 AM EDT Plan of Treatment Health MaintenanceDue DateLast DoneCommentsDepression Kcgficosu72/28/1978 DTaP,Tdap and Td Vaccines (1 - Tdap)1985Pap Smear1987Zoster (Shingles) Vaccine (1 of 2)2016COVID-19 Vaccine ( - season) , 04/27/2021, 08/02/2020, Additional history existsInfluenza Zrmgsir6303/07/2025dult BMI Edwgotglx33/Tobacco Screening olonoscopy/07/2022, 03/13/2022 Medical Devices Not on [...] MemberRelationshipSpecialtyStart DateEnd Date Melissa Worthy MD [address] [place] [address] PCP - GeneralFamily Medicine03/19/23
--- OUTSIDE RECORDS SUMMARY | 2025-06-18 12:45 | XMS_ITS | Encounter Summary ---
Author Organization [facility] Address [id number] [address] [place] [address] Care Team Providers Care Financial Service Rep Name Role Phone Melissa Worthy MD Primary Care Provider [phone] Encounter Details DateTypeDepartmentCare Team (Latest Contact Info)Bnkvtqdbxcv12/06/2025Telephone [facility] [address] [place] [phone] Yoselin Lo RMA Social History Tobacco UseTypesPacks/DayYears UsedDateSmoking Tobacco: FormerCigarettes Smokeless Tobacco: Never Comments:smoked when patient was 18 for 6 months Alcohol UseStandard Drinks/WeekCommentsYes0 (1 standard drink = 0.6 oz pure alcohol)occasionallyHunger ScreeningAnswerDate RecordedWithin the past 12 months we worried whether our food would run out before we got money to buy more.Never True03/25/2024Food Insecurity - InabilityNot on file03/25/2024Comments UnknownSex and Gender InformationValueDate RecordedSex Assigned at BirthNot on fileLegal HcePyjnsy65/08/2022 3:24 PM EDTGender IdentityNot on fileSexual OrientationNot on filedocumented as of this encounter Miscellaneous Notes * Telephone Encounter - DANIELLE Bennett - 04/11/2025 10:31 AM EDT Shasta called into the office to ask if Dr. Jade could put in a port for her. She is having a lungbiopsy on 04/12/25. She would like it done at [facility] because that's where she works and [...] Dr. Jade does not go to [facility] any longer. Patient stated she will look for another alternative. Patients states [facility] is at her tier 3 - her out of pocket expense would be quite large. 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 If she wants it done it will have to be done at [facility] by me unless she wants to go elsewhere. Sorry tell her. Dr. Martino Previous Messages ----- Message ----- From: DANIELLE Bennett Sent: 04/11/2025 10:29 AM EDT To: Asher Jade DO; DANIELLE Dunn Subject: [facility] Shasta called into the office today to say that she needs a port put in She is having a lung biopsy done today - 04/11/25. She works at the [facility] and with her insurance - it would be better to have it done at [facility] I know we haven't done TB in a while. Would this be something you would consider? I could call [facility] and ask if they could open up a block for you I would schedule an office visit for her H & P Please advise - Elena palencia documented in this encounter Plan of Treatment Not on file documented as of this encounter Visit Diagnoses Not on filedocumented in this encounter Care Teams Team MemberRelationshipSpecialtyStart DateEnd Date Melissa Worthy MD [address] [place] [address] PCP - GeneralFamily Medicine03/19/23documented as of this encounter
--- OUTSIDE RECORDS SUMMARY | 2025-06-18 12:45 | XMS_ITS | Clinical Summary ---
Author Organization [facility] Address [address], [address] [place] [address] Care Team Providers Care Certified Nurse Practitioner Name Role Phone Melissa Worthy MD Primary Care Provider [phone] Allergies Active AllergyReactionsCriticalityNoted DateCommentsCodeineOther (See Comments) 02/19/2023 Other Reaction(s): GI Disturbance HydrocodoneNausea And JprkpurvAudd47/15/2022 Patient reports it was many years ago Other Reaction(s): Nausea, Nausea And Vomiting Patient reports it was many years ago Medications MedicationSigDispense QuantityRefillsLast FilledStart DateEnd DateStatus Cholecalciferol (VITAMIN D3 PO) Take 1,000 mg by mouthActive brimonidine (ALPHAGAN) 0.2 % ophthalmic solution INSTILL 1 DROP INTO EACH EYE TWICE DAILY GJAFIYTO37/03/2025Active dorzolamide-timolol (COSOPT) 2-0.5 % ophthalmic solution INSTILL 1 DROP INTO EACH EYE TWICE DAILY DIRECTEDActive latanoprost (XALATAN) 0.005 % ophthalmic solution INSTILL 1 DROP INTO EACH EYE IN THE EVENING XMPKXOYE74/19/2024Active ondansetron (ZOFRAN) 8 MG tablet Take 1 tablet by mouth every 8 hours as neededActive pantoprazole (PROTONIX) 40 MG tablet Take 1 tablet by mouth dailyActive BETA GLUCAN PO Take by mouthActive Active Problems ProblemNoted DateDiagnosed DateLung mhlovk7304/12/2025 Encounters DateTypeDepartmentCare FxykBvakbcvayvd47/07/2025Post-op Telephone [facility] Special Procedure [address] [place] [address] [phone] Tereza Hernandez RN 04/11/2025 3:58 PM EDT - 04/13/2025 11:59 PM EDTHospital Encounter [facility] Radiology [address] [place] [address] Discharge Disposition: Home or Self Care04/11/2025 1:00 PM EDT - 04/13/2025 11:59 PM EDTHospital Encounter [facility] CT Scan [address] [place] [address] Ender Sanchez MD Lung nodule Discharge Disposition: Home or Self Care04/11/2025Orders Only [facility] Vascular and Interventional Radiology [address] [place] [address] [place] [address] Arielle Daly MA Pre-operative laboratory examination; Lung bbercp5104/08/2025Telephone [facility] Special Procedure [address] [place] [address] Cynthia Gallagher RN 04/06/2025 11:30 AM EDTOffice Visit [facility] Vascular and Interventional Radiology [address] [place] [address] Steph Casiano PA-C Pre-operative laboratory examination (Primary Dx); Lung nodule; Malignant neoplasm of colon, unspecified part of colon (HCC)04/06/2025Telephone [facility] Vascular and Interventional Radiology [address] [place] [address] Ender Sanchez MD Piusvbill35/23/2025bstract [facility] Pulmonology [address] [address] Ender Sanchez MD from Last 3 Months Social History Tobacco UseTypesPacks/DayYears UsedDateSmoking Tobacco: Never Assessed CommentsUnknownSex and Gender InformationValueDate RecordedSex Assigned at Xhexly8004/10/2025 7:32 PM EDTLegal NgmTjvhmv30/23/2025 3:06 PM EDTGender Identity Bqacaa5704/10/2025 7:32 PM EDTSexual IrqmxblvylsBjfcjgal88/05/2025 7:32 PM EDT Last Filed Vital Signs Vital SignReadingTime TakenCommentsBlood Exatalmw441/7204/11/2025 3:45 PM EDT Tmkpc278804/11/2025 3:45 PM YHAIlzlgbpbhjk97.8 ??C (98.3 ??F)04/11/2025 1:30 PM EDTRespiratory Pspj859404/11/2025 3:45 PM EDTOxygen Rxzuiivoeu07%04/11/2025 3:45 PM EDTInhaled Oxygen Concentration--Eyibsa23.2 kg (157 lb)04/11/2025 1:30 PM EDT Uqjukx699.6 cm (5' 4 )04/11/2025 1:30 PM EDTBody Mass Index26.9504/11/2025 1:30 PM EDT Plan of Treatment Health MaintenanceDue DateLast DoneCommentsDepression Jxkflp6704/03/1978HIV screen 1981Hepatitis C njffzp1604/03/1984DTaP/Tdap/Td vaccine (1 - Tdap)1985 Hepatitis B vaccine (1 of 3 - 19+ 3-dose series)1985Pap smear1987 Cervical cancer aqswpq3304/03/1996HPV (without or with Pap)1996Diabetes cicvkv4804/03/2001Breast cancer ogxhgf6004/03/20063666Jiklrn31/28/2006Colonoscopy 2011Colorectal Cancer Zdndpx0804/03/2011FIT/FOBT: Average risk2011 Fecal-DNA (Cologuard): Average risk2011Sigmoidoscopy/CT colonography [...] Procedures Procedure NamePriorityDate/TimeAssociated DiagnosisCommentsXR CHEST (2 VW) Eagrqmm5004/11/2025 4:[address] NEEDLE BIOPSY LUNG PERCUTANEOUS W IMAGING AXAYAETBJxxrfpj84/06/2025 2:54 PM EDT Lung nodule SURGICAL HUWUXHKYOSATS74/06/2025 9:39 AM EDT from Last 3 Months Results * XR CHEST (2 VW) (04/11/2025 4:06 PM EDT)Anatomical RegionLateralityModality ChestComputed RadiographySpecimen (Source)Anatomical Location / Laterality Collection Method / VolumeCollection TimeReceived UgvpIhcfp54/06/2025 4:08 PM EDT Impressions 04/11/2025 4:08 PM [...] Narrative Procedure Note Ender Sanchez MD - 04/12/2025 IMPRESSION: 1. Successful [...] Ender Sanchez Authorizing ProviderResult TypeResult StatusOlivipatricio Casiano DE-[facility] ORDERABLES Final Result * Surgical Pathology (04/11/2025 9:39 AM EDT)Specimen (Source)Anatomical Location / LateralityCollection Method / VolumeCollection TimeReceived Time 04/11/2025 9:39 AM EDT1 9:39 AM EDT [facility] - 04/14/2025 12:54 PM EDT [facility] ? [address] ? [place], [place] ??[address] ? [phone] FINAL SURGICAL PATHOLOGY REPORT Patient Name: ??MARYSOL GARDNER ?Accession No: ??[id number] Age Sex: ?? 1965 ? Location: ?DIS Account No: ?[id number] ?Collected: ? 04/11/2025 Med Rec No: ?[id number] ? Received: ?04/12/2025 Attend Phys: ?? ENDER [...] A LUNG PRIMARY. CLINICAL CORRELATION IS NECESSARY. JACNV/JACNV CLINICAL INFORMATION: Results to Dr. Garcia. Right [...] biopsy bag where the core is present. ?[facility] CPT: 78945 X1 ?? 36414 X2 ?? 50228 X1 Arnel DONNELLY M.D. ??04/14/2025 Electronically signed out by ? Page 1of 1 Authorizing ProviderResult TypeResult StatusTimevangelina Garcia PATHOLOGY/CYTOLOGY ORDERABLESFinal ResultPerforming OrganizationAddress City/State/ZIP CodePhone Number [facility] [address] [place] [address], [facility] [phone] from Last 3 Months Insurance Care Teams Team MemberRelationshipSpecialtyStart DateEnd Date Melissa Worthy MD [address] [place] [address] [facility] Bfsirtep14/6/25
--- OUTSIDE RECORDS SUMMARY | 2025-06-18 12:45 | XMS_ITS | Encounter Summary ---
Author Organization [facility] Address [address] [place] [address] Care Team Providers Care Chronograph Operator Name Role Phone Melissa Worthy MD Primary Care Provider [phone] Encounter Details DateTypeDepartmentCare Team (Latest Contact Info)Pdmjmgdrlbe83/02/2025External Result Encounter [facility] External Department Unsolicited Timmy Jordan, DO [address] [place] [address] Social History Tobacco UseTypesPacks/DayYears UsedDateSmoking Tobacco: NeverSmokeless Tobacco: NeverAlcohol UseStandard Drinks/WeekCommentsYes0 (1 standard drink = 0.6 oz pure alcohol)occCommentsUnknownSex and Gender InformationValueDate Recorded Sex Assigned at BirthNot on fileLegal EjlKixrod00/15/2023 7:32 PM EDTGender IdentityNot on fileSexual OrientationNot on filedocumented as of this encounter Plan of Treatment Not on file documented as of this encounter Procedures Procedure NamePriorityDate/TimeAssociated DiagnosisCommentsCARCINOEMBRYONIC LTQDFAMMzilfut15/02/2025 11:11 AM EST documented in this encounter Results * (ABNORMAL) CARCINOEMBRYONIC ANTIGEN (06/07/2025 11:11 AM EST)ComponentValueRef RangeTest MethodAnalysis TimePerformed AtPathologist SignatureCARCINOEMBRYONIC WKYPSPS14.6(H)0.0 - 3.0 ng/mL06/07/2025 4:30 PM [facility] CtrComment: Serial tumor marker results determined by assays using different manufacturers or methods may not be comparable. [facility] airplane coverer and method: JANETH UNICEL DXI, ??2 SITE IMMUNOENZYMATIC ???SANDWICH?? ASSAY. Specimen (Source)Anatomical Location / LateralityCollection Method / Volume Collection TimeReceived TimeOtherTopography unknown / Toihllr2906/07/2025 11:11 AM EST06/07/2025 11:14 AM EST Narrative Authorizing ProviderResult TypeResult StatusTimevangelina Jordan DOL BLOOD ORDERABLESFinal ResultPerforming OrganizationAddressCity/State/ZIP CodePhone Number [facility] [address] [place] [address], [facility] [address] [place] [address] documented in this encounter Visit Diagnoses Not on filedocumented in this encounter Care Teams Team MemberRelationshipSpecialtyStart DateEnd Date Melissa Worthy MD [address] [place] [address] PCP - GeneralFamily Medicine12/14/24documented as of this encounter
--- OUTSIDE RECORDS SUMMARY | 2025-06-18 12:45 | XMS_ITS | Clinical Summary ---
Author Organization [facility] Address [address] [place] [place] [address] Care Team Providers Care Sleeve Tailor Name Role Phone Melissa Worthy MD Primary Care Provider [phone] Allergies Active AllergyReactionsCriticalityNoted DateCommentsCodeineGI intolerance 02/19/20232305DjrunkquegdXqzt97/15/2022 Other Reaction(s): Nausea, Nausea And Vomiting Patient reports it was many years ago Medications MedicationSigDispense QuantityRefillsLast FilledStart DateEnd DateStatus ondansetron (Zofran) 8 MG tablet Take 8 mg by mouth every 8 (eight) hours if needed for nauseaActive latanoprost (Xalatan) 0.005 % ophthalmic solution INSTILL 1 DROP INTO EACH EYE IN THE EVENING FBTGMKPX40/19/2024Active dorzolamide-timolol (Cosopt) 2-0.5 % ophthalmic solution INSTILL 1 DROP INTO EACH EYE TWICE DAILY SGDFQFYC60/09/2025Active brimonidine (AlphaGAN P) 0.2 % ophthalmic solution INSTILL 1 DROP INTO EACH EYE TWICE DAILY RKTEKACQ00/03/2025Active loratadine (Claritin) 10 MG tablet Daily5Active pantoprazole (ProtoNix) 40 MG EC tablet Daily5Active omega-3 1000 MG capsule capsule Take by mouth4Active famotidine (Pepcid) 20 MG tablet Indications:LPRD (laryngopharyngeal reflux disease)Take 1 tablet (20 mg) by mouth at bedtime 90 tablet 5Active Active Problems ProblemNoted DateDiagnosed DateAbnormal LFTs12/20/2024hemotherapy-induced peripheral uenmiwwsnx66/16/2025Colon gtoqev5612/20/2024Encounter for chemotherapy ozaafzhmmv78/16/6428Tznbkivbxcomsw07/16/2025Pharyngitis, xblmchr1912/20/2024 Salivary gland roxnkylmcsj53/16/2025Situational deuriki2712/20/2024Female pelvic congestion xrrvegkl68/17/2023laucoma of both eyes05/15/2022ostpartum bleeding ([facility])05/15/2022 Encounters DateTypeDepartmentCare QzwiEqicncbndqy33/02/2025External Result Encounter [facility] External [facility] Unsolicited Timmy Jordan, DO 06/07/2025External Result Encounter [facility] External [facility] Unsolicited Timmy Jordan, DO 05/23/2025External Result Encounter [facility] External [facility] Unsolicited Timmy [...] Recorded Sex Assigned at BirthNot on fileLegal JhuVjgsij12/15/2023 7:32 PM EDTGender IdentityNot on fileSexual OrientationNot on file Last Filed Vital Signs Vital SignReadingTime TakenCommentsBlood Vaadpwym179/9206312/21/2024 8:32 AM EDT Zllca806212/21/2024 8:32 AM EDTTemperature--Respiratory Rate--Oxygen Saturation-- Inhaled Oxygen Concentration--Ocoliu57.1 kg (159 lb)12/21/2024 8:32 AM EDTHeight 162.6 cm (5' 4 )02/19/2023 11:44 AM EDTBody Mass Index27.2908/ 11:44 AM EDT Plan of Treatment Health MaintenanceDue DateLast DoneCommentsCT Utuudyfbqqmh1966FIT-DNA 1966FIT1966FOBT1966 9472Fqhwavvrrechp1966Pap Smear1987 Cervical Cancer Xqamqrupo64/28/1996HPV/Sjvuhy4604/03/19960487Syhyymhmu94/28/2006COVID- 19 Vaccine ( season)/04/2022, 04/27/2021, 08/02/2020, Additional history existsInfluenza Vaccine (#1)/4Colonoscopy , 2Colorectal Cancer Fdhgouuos71/01/2033 Pneumococcal Vaccine: Pediatrics (0 to 5 Years) and At-Risk Patients (6 to 64 Years)Aged OutNo longer eligible based on patient's age to complete this topic Procedures Procedure NamePriorityDate/TimeAssociated DiagnosisCommentsTOTAL PROTEIN, URINE Pqbuqiv1706/07/2025 3:02 PM EST CREATININE, RANDOM QKOCIHvtgepk30/02/2025 3:02 PM EST CARCINOEMBRYONIC BMCZYGSJioadyz65/02/2025 11:11 AM EST TOTAL PROTEIN, LUEZFJerkbcp33/17/2025 2:03 PM EST CREATININE, RANDOM TCVAWAkjbhgv07/17/2025 2:03 PM EST TOTAL PROTEIN, PXAKBXlutjvs77/03/2025 3:13 PM EST CREATININE, RANDOM DEKSGTjbcpzx70/03/2025 3:13 PM EST PET/CT SKULL BASE TO MID THIGH03/30/2025 11:34 AM EDT GLUCOSE POCT IJEMZYVDZJZGeiripr39/24/2025 8:38 AM EDT from Last 3 Months Results * TOTAL PROTEIN, URINE (06/07/2025 3:02 PM EST) Only the most recent of3 resultswithin the time period is included. ComponentValueRef RangeTest MethodAnalysis TimePerformed AtPathologist Signature TOTAL PROTEIN, URINE<40 - 9 mg/dL06/07/2025 3:38 PM [facility] CtrSpecimen (Source)Anatomical Location / LateralityCollection Method / VolumeCollection TimeReceived LqtiCndwz57/02/2025 3:02 PM EST06/07/2025 3:13 PM EST Narrative Authorizing ProviderResult TypeResult StatusTimmy CAMERONAB BLOOD ORDERABLESFinal ResultPerforming OrganizationAddressCity/State/ZIP CodePhone Number [address] [address], [facility] [address] [place] [address] * Creatinine, urine, random (06/07/2025 3:02 PM EST) Only the most recent of3 resultswithin the time period is included. ComponentValueRef RangeTest MethodAnalysis TimePerformed AtPathologist Signature CREATININE, URINE (RANDOM)10.00mg/dL06/07/2025 3:35 PM [facility] CtrComment:No reference range establishedSpecimen (Source)Anatomical Location / LateralityCollection Method / VolumeCollection TimeReceived TimeOther 06/07/2025 3:02 PM EST06/07/2025 3:13 PM EST Narrative Authorizing ProviderResult TypeResult StatusTimmy Jordan DOLAB URINE ORDERABLESFinal ResultPerforming OrganizationAddressCity/State/[facility] CodePhone Number [address] [address], [facility] [address] [place] [address] * (ABNORMAL) CARCINOEMBRYONIC ANTIGEN (06/07/2025 11:11 AM EST)ComponentValueRef RangeTest MethodAnalysis TimePerformed AtPathologist SignatureCARCINOEMBRYONIC PNQMCLB06.6(H)0.0 - 3.0 ng/mL06/07/2025 4:30 PM ESTFirelands Regional Medical CtrComment: Serial tumor marker results determined by assays using different manufacturers or methods may not be comparable. [facility] divisional merchandising manager and method: JANETH UNICEL DXI, ??2 SITE IMMUNOENZYMATIC ???SANDWICH?? ASSAY. Specimen (Source)Anatomical Location / LateralityCollection Method / Volume Collection TimeReceived TimeOtherTopography unknown / Pdquutm7806/07/2025 11:11 AM EST06/07/2025 11:14 AM EST Narrative Authorizing ProviderResult TypeResult StatusTimevangelina Arnel Jordan [facility] BLOOD ORDERABLESFinal ResultPerforming OrganizationAddressCity/State/ZIP CodePhone Number [facility] [address] [place] [address], [facility] [address] [place] [address] * PET/CT skull base to mid thigh [...] ? Impression dictated by: Andres Wallis Jr., Olaf.OJennifer ??03/30/2025 11:44 AM ? Dictation Location: RADIO-PC-22 ? Transcribed By: ? PWS ?03/30/25 1144 ? Dictated By: ?Andres Wallis Jr, DO ?03/30/25 1134 ? Signed By: <Electronically signed by Andres Wallis Jr, DO in OV> ?03/30/25 1144 Narrative 03/30/2025 11:46 AM T [facility] ?[facility] ?[address] ? [place] [address] ?Nuclear Medicine Report ? Signed ? Patient: Marysol Jacobson ?MR#: [id number] ?? 23 ? : 1965 ?Acct:[id number] ? Age/Sex: 59 / F ?ADM Date: 03/30/25 ? Loc: PE ?Room: ?Type: REG RCR ?? Attending Dr: Carlyn Turner APRN ?? Copies to: Andres Wallis Jr, DO ?? Carlyn Turner APRN ?? Timmy Jordan II, DO ? Ordering Provider: Timmy Jordan II DO ?? Date of Service: 03/30/25 ?? [...] sb-mt ?? Procedure Note Andres Wallis Jr., DO - 03/30/2025 [facility] [address] [place] [address] Nuclear Medicine Report Signed Patient: Marysol JacobsonMR#: [id number] 22 : 1965Acct:[id number] Age/Sex: 59 / FADM Date: 03/30/25 Loc: Room:Type: [facility] Attending Dr: Carlyn Turner APRN [...] Jr., AlfredOJennifer 03/30/2025 11:44 AM Dictation Location: [place] [address] Transcribed By: [facility] 03/30/25 1144 Dictated By: Andres Wallis Jr, DO 03/30/25 1134 Signed By: <Electronically signed by Andres Wallis Jr, DO inOV> 03/30/25 1144 Authorizing ProviderResult TypeResult StatusTimmy Jordan [facility] CT PROCEDURESFinal Result * GLUCOSE POCT GLUCOMETERS (03/30/2025 8:38 AM EDT)ComponentValueRef RangeTest MethodAnalysis TimePerformed AtPathologist SignatureGLUCOSE POC PSSKTNKTXSB452 mg/dL03/30/2025 9:07 AM EDTFIRELANDSComment: Random Glucose Reference [...] NPLAB BLOOD ORDERABLESFinal ResultPerforming OrganizationAddressCity/State/ZIP CodePhone Number [facility] [address] [place] [address], [place] from Last 3 Months Insurance Care Teams Team MemberRelationshipSpecialtyStart DateEnd Date Melissa Worthy MD [address] [place] [address] PCP - GeneralFamily Medicine12/14/24
--- OUTSIDE RECORDS SUMMARY | 2025-06-18 12:45 | XMS_ITS | Encounter Summary ---
Author Organization [facility] Address [address] [place] [address] Care Team Providers Care Lpn Rn Hospice Name Role Phone Melissa Worthy MD Primary Care Provider [phone] Encounter Details DateTypeDepartmentCare Team (Latest Contact Info)Czsmefrujdr28/02/2025External Result Encounter [facility] External Department Unsolicited Timmy Jordan, DO [address] [place] [address] Social History Tobacco UseTypesPacks/DayYears UsedDateSmoking Tobacco: NeverSmokeless Tobacco: NeverAlcohol UseStandard Drinks/WeekCommentsYes0 (1 standard drink = 0.6 oz pure alcohol)occCommentsUnknownSex and Gender InformationValueDate Recorded Sex Assigned at BirthNot on fileLegal WxeQamzxw35/15/2023 7:32 PM EDTGender IdentityNot on fileSexual OrientationNot on filedocumented as of this encounter Plan of Treatment Not on file documented as of this encounter Procedures Procedure NamePriorityDate/TimeAssociated DiagnosisCommentsTOTAL PROTEIN, URINE Xflpiqt3806/07/2025 3:02 PM EST CREATININE, RANDOM FSOYPWfoidha76/02/2025 3:02 PM EST documented in this encounter Results * TOTAL PROTEIN, URINE (06/07/2025 3:02 PM EST)ComponentValueRef RangeTest MethodAnalysis TimePerformed AtPathologist SignatureTOTAL PROTEIN, URINE<40 - 9 mg/dL06/07/2025 3:38 PM [facility] CtrSpecimen (Source) Anatomical Location / LateralityCollection Method / VolumeCollection Time Received CfbcPqurd04/02/2025 3:02 PM EST06/07/2025 3:13 PM EST Narrative Authorizing ProviderResult TypeResult StatusTimevangelina Jordan DOLAB BLOOD ORDERABLESFinal ResultPerforming OrganizationAddressCity/State/ZIP CodePhone Number [address] [place] [address], [facility] [address] [place] [address] * Creatinine, urine, random (06/07/2025 3:02 PM EST)ComponentValueRef RangeTest MethodAnalysis TimePerformed AtPathologist SignatureCREATININE, URINE (RANDOM) 10.00mg/dL06/07/2025 3:35 PM [facility] CtrComment:No reference range establishedSpecimen (Source)Anatomical Location / Laterality Collection Method / VolumeCollection TimeReceived CokrXkbwp92/02/2025 3:02 PM EST06/07/2025 3:13 PM EST Narrative Authorizing ProviderResult TypeResult StatusTimevangelina Jordan DOLAB URINE ORDERABLESFinal ResultPerforming OrganizationAddressCity/State/ZIP CodePhone Number [address] [place] [address], [facility] [address] [place] [address] documented in this encounter Visit Diagnoses Not on filedocumented in this encounter Care Teams Team MemberRelationshipSpecialtyStart DateEnd Date Melissa Worthy MD [address] [place] [address] PCP - GeneralFamily Medicine12/14/24documented as of this encounter
[2025-06-18 13:12] LABS: Hematocrit 36.7 % (36.0-48.0); Hemoglobin 11.9 g/dL (12.0-16.0); Mean Corpuscular HGB Conc 32.4 g/dL (29.9-35.2); Mean Corpuscular Hemoglobin 31.6 pg (26.7-34.0); Mean Corpuscular Volume 97.3 fL (81.0-99.0); Platelet Count 214 10^3/uL (150-450); Red Blood Count 3.77 10^6/uL (4.20-5.40); White Blood Count 2.8 10^3/uL (4.0-11.0)
[2025-06-18 13:39] LABS: Alanine Aminotransferase 28 U/L (14-59); Albumin Globulin Ratio 0.9; Albumin Level 3.5 g/dL (3.4-5.0); Alkaline Phosphatase 78 U/L (46-116); Anion Gap 9.5; Aspartate Amino Transferase 15 U/L (15-37); Blood Urea Nitrogen 10.0 mg/dL (7.0-18.0); Calcium 9.6 mg/dL (8.5-10.1); Carbon Dioxide 28.6 mmol/L (21.0-32.0); Chloride 104 mmol/L (98-107); Estimated GFR (African America >60 (>=60 mL/min/1.73m^2); Estimated GFR (Non-African Ame >60 (>=60 mL/min/1.73m^2); Globulin 3.9 g/dL; Glucose 102 mg/dL (74-106); Potassium 4.1 mmol/L (3.5-5.1); Sodium 138 mmol/L (136-145); Total Protein 7.4 g/dL (6.4-8.2)
[2025-06-18 13:56] LABS: Atypical Lymphocytes % Manual 5.0 %; Atypical Lymphocytes Abs Man 0.14; Band Neutrophils Absolute 0.1 10^3/uL (0.0-0.3); Basophils Abs Manual 0.02 10^3/uL (0.00-0.10); Basophils Percent Manual 1.0 % (0.2-2.0); Eosinophils Absolute Manual 0.00 10^3/uL (0.00-0.70); Eosinophils Percent Manual 0.0 % (0.9-7.0); Lymphocytes Absolute Manual 1.42 10^3/uL (1.20-3.80); Lymphocytes Percent Manual 51.0 % (20.5-60.0); Monocytes Absolute Manual 0.36 10^3/uL (0.30-0.80); Monocytes Percent Manual 13.0 % (1.7-12.0); Segmented Neut Absolute Manual 0.78 10^3/uL (1.4-6.5); Segmented Neutrophils % Manual 28.0 (43.0-75.0)
== END 2025-06-18 12:39 | disposition home or self-care (01) ==
LOC: LAB 12:42
PROVIDERS: PCP Family Medicine; Visit Provider Internal Medicine
DX: C18.9 Malignant neoplasm of colon, unspecified (principal)
CPT/HCPCS: 36415; 80053; 85007; 85027

== ENCOUNTER 2025-07-01 14:54 | Outpatient (OUT) | payer BC, SELFPAY ==
--- OUTSIDE RECORDS SUMMARY | 2025-07-01 14:59 | XMS_ITS | CCD ---
Author Organization [facility] Care Team Providers Care Line Helper Name Role Phone DO Isaías Jordan II Attending Provider [phone] DO Clint Jean Baptiste Referring Provider MD Sandro Chin Primary Care Provider DO Isaías Jordan II Attending Provider [phone] NON STAFF Primary Care Provider DO Clint [...] ADAMOWICZ, ISAÍAS J Consulting Unavailable CHIN, DR SADNRO Ernst Admitting Unavailable CHIN, DR SANDRO Ernst [...] Admitting Unavaila ble GRILLIIgnacio ., DR CLINT Ersnt Attending Unavaila ble GIUSEPPE, DR SANDRO Ernst [...] GRILLIS ., DR CLINT Ernst Consulting Unavaila SIAÍAS Kang Admitting Unavailable ISAÍAS JORDAN Attending Unavailable GIUSEPPE, DR SANDRO Ernst Primary Care Unavailable ISAÍAS JORDAN Consulting Unavailable Sandro Chin Unavailable DO Clint Jean Baptiste Referring Provider MD Sandro Chin Primary Care Provider OLIVIA Turner Attending Provider DO Clint Jean Baptiste Referring Provider [phone] MD Sandro Chin Primary Care Provider OLIVIA [...] Provider Sandro Chin MD Attending Provider Ly DO, Roz Bowen Attending Provider [phone] Ly DO, Roz L Other Provider Sandro [...] Provider Unavailable Inessa Mims APRN Attending Provider Clitn LEAVITT Attending Unavailable Clint LEAVITT Attending Unavailable [...] of OnsetReaction(s) Facility (20 sources)HYDROcodone; Translations: [Hydrocodone]Drug Usptcbl28-08-7375Lkkryt And Vomiting, Nausea (finding) (1 source)Misc-Food; Translations: [Misc-Food]Food allergy (disorder)[facility] Repository (11 sources)Codeine; Translations: [CODEINE]Drug Ganropr96-62-2719NW Disturbance, GI intolerance, Gastrointestinal irritation (disorder)[facility] Repository Medications Current Medications MedicationDrug Class(es)DatesSig (Normalized)Sig (Original)acetaminophen 500 mg oral tablet (18 sources)Start: 07-19-9830ufkd 2 tablets by mouth once daily as needed for painStart: 17-20-5099eqra 1000 mg by mouth once dailyAcetaminophen Active 1000 MG PO Daily May 03, 2022 12:00amBeta-Glucan 500 mg capsule (2 sources)Start: 27-02-7330avybfqayoxk tartrate 2 mg/ml ophthalmic solution (20 sources)alpha-Adrenergic AgonistStart: 84-51-7754yhby 1 drop(s) into the eye(s) twice dailybrimonidine (AlphaGAN P) 0.2 % ophthalmic solution INSTILL 1 DROP INTO EACH EYE TWICE DAILY DIRECTED 11/06/2024 ActiveStart: 05-02-2022 take 1 drop(s) into the eye(s) twice dailyStart: 76-11-0957xuvu 1 drop(s) into the eye(s) twice dailybrimonidine Opth 0.2% Aurora 1 drop(s), Eye-Both, BID, Refill(s) 0 Start Date: 05/02/22 Status: Ordered Repeat number: 1Start: 18-23-3480mluh 1 drop(s) into the eye(s) twice dailyBrimonidine 0.2 % Drops Active 1 DROPS EYE-BOTH Twice daily May 02, 2022 12:00amStart: 05-02-2022 take 1 drop(s) into the eye(s) twice dailyBrimonidine Active 1 DROPS EYE-BOTH Twice daily May 02, 2022 12:00amStart: 53-20-8587tgly 0.2 drop(s) into the eye(s) at bedtimebrimonidine (ALPHAGAN) 0.2 % ophthalmic solution Administer 0.2 drops to both eyes in the morning and at bedtime. 01/20/2022 Active cholecalciferol 0.025 mg oral capsule (18 sources)Vitamin DStart: 33-36-7219dhym 1 capsule by mouth once daily cholecalciferol, [...] mg oral tablet (1 source)BenzodiazepineStart: 03-03-2024 End: 42-29-8401gfjl 1 tablet by mouth once, then take 1 tablet by mouth every three hoursdiazePAM (VALIUM) 5 mg tablet Indications: History of colon cancer Take 1 tablet (5 mg total) by mouth once for 1 dose. Take 3 hr prior to procedure 1 tablet 03/03/2024 03/03/2024 Activedocosahexaenoic acid 120 mg / eicosapentaenoic acid 180 mg oral capsule (4 sources)Start: 37-64-6279qqpef-3 1000 MG capsule capsule Take by mouth 01/19/2024 ActiveOmega 4-Ehg-Psp-Fish Oil (8 sources)Start: 93-68-9964vfir 300-1000 mg by mouth once dailyStart: 13-99-9426ecvz 300-1000 mg by mouth once dailyOmega 5-Pyj-Iee-Fish Oil (Fish Oil) 300-1,000 mg capsule Active 1 CAP PO Daily January 19, 2024 12:00am Complies with drug therapyStart: 23-50-3218kcgw 300-1000 mg by mouth once dailyOmega 6-Lwd-Ild-Fish Oil (Fish Oil) 300-1,000 mg capsule Active 1 CAP PO Daily January 18, 2024 11:00pmStart: 60-93-8751scoo 300-1000 mg by mouth once dailyOmega 5-Uof-Ocb-Fish Oil (Fish Oil) 300-1,000 mg capsule Active 1 CAP PO Daily January 19, 2024 12:00amdorzolamide 20 mg/ml / timolol 5 mg/ml ophthalmic solution (20 sources)Carbonic Anhydrase Inhibitor, beta-Adrenergic BlockerStart: 51-79-7825mqzp 1 drop(s) into the eye(s) twice dailyStart: 14-58-7089vkjy 1 drop(s) into the eye(s) twice dailyDorzolamide-Timolol 22.3-6.8 mg/mL drops Active 1 DROPS EYE-BOTH Twice daily May 02, 2022 12:00amStart: 02-06-2022 dorzolamide-timoloL (COSOPT) 22.3-6.8 mg/mL ophthalmic solution Administer 6.8 drops to both eyes in the morning and at bedtime. 02/06/2022 ActiveStart: 82-46-1892cvyqljwbbbu-timolol (Cosopt) 2-0.5 % ophthalmic solution INSTILL 1 DROP INTO EACH EYE TWICE DAILY DIRECTED 11/12/2024 Activefamotidine 20 mg oral tablet (4 sources)Histamine-2 Receptor AntagonistStart: 12-21-2024 End: 56-18-2132zxxf 1 tablet by mouth at bedtimefamotidine (Pepcid) 20 MG tablet Indications: LPRD (laryngopharyngeal reflux disease) Take 1 tablet(20 mg) by mouth at bedtime 90 tablet 12/21/2024 Activelatanoprost 0.05 mg/ml ophthalmic suspension (20 sources)Prostaglandin AnalogStart: 37-67-2451qpqj 1 drop(s) into the eye(s) twice dailylatanoprost 0.005% ophthalmic emulsion 1 drop(s), Eye-Both, BID, Refill(s) 0 Start Date: 04/13/25 Status: Ordered Repeat number: 1Start: 33-26-4131hgfe 1 drop(s) into the eye(s) in the eveninglatanoprost (Xalatan) 0.005 % ophthalmic solution INSTILL 1 DROP INTO EACH EYE IN THE EVENING DIR ECTED 04/24/2024 ActiveStart: 18-22-2753yvew 1 drop(s) into the eye(s) once daily in the eveningStart: 72-67-0453ofos 1 drop(s) into the eye(s) once daily in the eveningLatanoprost 0.005 % Drops Active 1 DROPS EYE-BOTH Every evening May 02, 2022 12:00amStart: 05-09-4790qzji 1 drop(s) into the eye(s) once daily in the eveningLatanoprost Active 1 DROPS EYE-BOTH Every evening May 02, 2022 12:00amStart: 86-15-1633bojl 0.005 drop(s) into the eye(s) once daily latanoprost (XALATAN) 0.005 % ophthalmic solution Administer 0.005 drops to both eyes nightly. 12/22/2021 Activetake 1 drop(s) into the eye(s) once daily Latanoprost 0.005 % 1 drop once a day each eye Activeloratadine 10 mg oral tablet (10 sources)Start: 12-14-2024 End: 61-20-7082wkgcsfbvmy (Claritin) 10 MG tablet Daily 12/14/2024 Activemv- mn/om3/dha/epa/fish/lut/katheryn (OCUVITE ADULT 50 PLUS ORAL) (3 sources)mv-mn/om3/dha/epa/fish/lut/katheryn (OCUVITE ADULT 50 PLUS ORAL) Take by mouth daily. Activeomega 4-vcm-dpr-fish oil (Fish OiL) 300-1,000 mg capsule (3 sources)omega 3-qvv-gqs-fish oil (Fish OiL) 300-1,000 mg capsule Take by mouth. Activeomeprazole 20 mg delayed release oral capsule (19 sources)Proton Pump InhibitorStart: 01-16-2023 End: 89-16-4390qxns 1 capsule by mouth every twenty-four hours as needed omeprazole (PriLOSEC) [address] capsule Take 20 mg by mouth Daily as needed 01/16/2023 12/21/2024 Discontinued (Therapy completed)Start: 08-05-2022 End: 11-01-0899dnut 20 mg by mouth once dailyOmeprazole Magnesium (Prilosec) 10 mg Susp,Delayed Release For Recon Discontinued 20 MG PO Daily 603 August 05, 2022 1:00am December 14, 2024 9:54am Malignant neoplasm of colon Malignant neoplasm of colon, unspecifiedondansetron 8 mg disintegrating oral tablet (20 sources)Serotonin-3 Receptor AntagonistStart: 05-18-8895rjul 1 tablet by mouth every eight hours as needed for nausea and vomitingStart: 05-03-2022 End: 42-00-2211dvel 1 tablet by mouth every eight hours as needed for nausea Ondansetron Hcl 8 mg tablet Discontinued 8 MG PO Q8H as needed for Nausea 30 May 03, 2022 12:00am March 24, 2023 10:40am Malignant neoplasm of colon Malignant neoplasm of colon, unspecifiedpantoprazole (14 sources)Proton Pump InhibitorStart: 92-07-9359ptdetnpvewwr Refills(s) 0 Start Date: 04/13/25 Status: Ordered Repeat number: 1Start: 17-31-4169fddx 1 tablet by mouth once dailyStart: 12-14-2024 End: 90-69-6553ixavyxibaoil (ProtoNix) 40 MG EC tablet Daily 12/14/2024 Active sulfamethoxazole 800 mg / trimethoprim 160 mg oral tablet (1 source)Dihydrofolate Reductase Inhibitor Antibacterial, Sulfonamide AntimicrobialStart: 67-00-9512xiay 1 tablet by mouth every twelve hoursBactrim DS 800-160 MG 1 tablet Orally Twice a day for 10 day(s) May, Active Vitamin D3 (1 source)Vitamin D3 ActiveVitamin D3 1000 intl units (25 mcg) Tab (1 source)Start: 88-16-9211ahku 1 tablet by mouth once dailyVitamin D3 1000 intl units (25 mcg) Tab 25 mcg = 1 tab(s), Oral, Daily, Refills(s) 0 Start Date: 04/13/25 Status: Ordered Repeat number: 1 Completed/Discontinued Medications MedicationDrug Class(es)DatesSig (Normalized)Sig (Original)ascorbic acid 1000 mg extended release oral tablet (18 sources)Vitamin CStart: 05-27-2022 End: 80-68-0404fshz 1 capsule by mouth once dailyAscorbic Acid (Vitamin C) 1,000 mg Capsule, Extended Release Discontinued 1 CAP PO Daily May 27, 2022 1:00am November 17, 2023 9:47amStart: 05-27-2022 End: 59-83-9759dumo 1 capsule by mouth once dailyAscorbic Acid (Vitamin C) Discontinued 1 CAP PO Daily May 27, 2022 1:00am November 17, 2023 9:47am Start: 46-21-9143ngii 1 capsule by mouth once dailyAscorbic Acid (Vitamin C) Active 1 CAP PO Daily May 27, 2022 1:00amStart: 51-66-0476feoj 1 capsule by mouth once dailyAscorbic Acid (Vitamin C) Active 1 CAP PO Daily May 27, 2022 12:00amCarica Papaya (Papaya Enzyme) Tablet (13 sources)Start: 08-19-2022 End: 02-62-3180iioy 1 tablet by mouth once dailyCarica Papaya (Papaya Enzyme) Tablet Discontinued 1 TAB PO Daily August 19, 2022 1:00am June 25, 2023 12:38pmStart: 08-19-2022 End: 07-58-5765ifdy 1 tablet by mouth once dailyCarica Papaya (Papaya Enzyme) Tablet Discontinued 1 TAB PO Daily August 19, 2022 12:00am June 25, 2023 11:38amStart: 12-78-0426dqis 1 tablet by mouth once dailyCarica Papaya (Papaya Enzyme) Tablet Active 1 TAB PO Daily August 19, 2022 12:00am celecoxib 200 mg oral capsule (20 sources)Nonsteroidal Anti-inflammatory DrugStart: 02-19-2023 End: 81-09-6943qzds 1 capsule by mouth once dailyCelecoxib (Celebrex) 200 mg capsule Discontinued 200 MG PO Daily 60 1 July 01, 2024 12:29pm April 04, 2025 1:18pmglucosamine 500 mg oral tablet (8 sources)Start: 01-19-2024 End: 34-68-0592aqdm 1 tablet by mouth once dailyGlucosamine Hcl 500 mg tablet Discontinued 500 MG PO Daily January 19, 2024 12:00am July 01, 2024 12:06pm administer with a yaehDmzwa-Pu-7-Btg-Ebe-Lhyqmcf-Ast (11 sources)Start: 05-02-2022 End: 48-02-0908eoev 3 capsules by mouth once qvjvjRtkbi-Zp-1-Dct-Nyp-Jifjobs-Ast Discontinued 1 CAP PO Daily May 02, 2022 12:00am April 2:39pm Start: 05-02-2022 End: 93-51-6927mutp 3 capsules by mouth once rxofgHakaq-Ju-2-Xum-Ygv-Pvheayp-Ast Discontinued 1 CAP PO Daily May 01, 2022 11:00pm April 1:39pm Rkyty-Kn-9-Huk-Rya-Wryccqe-Ast 1,811-876-86-80 mg Capsule (7 sources)Start: 05-02-2022 End: 29-58-4960Cnhna-Qx-9-Rth-Fqv-Zcpsght-Iuy 1,714-485-91-80 mg Capsule Discontinued 1 CAP PO Daily April 12:00am May 03, 2022 2:39pm Start: 05-02-2022 End: 62-59-7777Fvydw-Fh-8-Dbd-Fab-Toxwvex-Twe 1,679-046-64-80 mg Capsule Discontinued 1 CAP PO Daily April 11:00pm May 03, 2022 1:39pm magnesium sulfate 0.0277 meq/ml / potassium sulfate 0.0374 meq/ml / sodium sulfate 0.257 meq/ml oral solution (1 source)Start: 03-19-2023 End: 63-74-5221bxce 177 mL by mouth in the morningsodium,potassium,mag sulfates (SUPREP) 17.5-3.13-1.6 gram recon soln Take 177 mL by mouth in the morning and 177 mL before bedtime. 4956 mL 03/19/2023 03/03/2024 Discontinued (Therapy completed)prochlorperazine 10 mg oral tablet (13 sources)PhenothiazineStart: 08-05-2022 End: 24-52-5660lwgc 1 tablet by mouth every six hours as needed for nausea and vomitingProchlorperazine Maleate (Compazine) 10 mg Tablet Discontinued 10 MG PO Q6H as needed for Nausea And Vomiting 60 3 August 05, 2022 1:00am March 24, 2023 10:40am Malignant neoplasm of colon Malignant neoplasm of colon, unspecifiedsod sulf-pot chloride-mag sulf 1.479-0.188- 0.225 gram tablet (1 source)Start: 03-19-2023 End: 74-02-6575vgu sulf-pot chloride-mag sulf 1.479-0.188- 0.225 gram tablet Indications: Primary malignant neoplasm of sigmoid colon (CMS-HCC) Please see instructional sheet given by physicians office. 24 tablet 03/19/2023 03/02/2024 DiscontinuedVit C-E-Zinc Sr-Tmyj-Mpe-Zeax (Icaps Areds2) 250 mg-200 unit -12.5 mg-1 mg Capsule (11 sources)Start: 06-25-2023 End: 52-62-6084lbqf 2 capsules by mouth once dailyVit C-E-Zinc Mo-Umrc-Gxk-Zeax (Icaps Areds2) 250 mg-200 unit -12.5 mg-1 mg Capsule Discontinued 2 CAP PO Daily June 25, 2023 12:00am November 17, 2023 8:48amStart: 06-25-2023 End: 86-53-4027drap 2 capsules by mouth once dailyVit C-E-Zinc Cx-Azaf-Fmu-Zeax (Icaps Areds2) 250 mg-200 unit -12.5 mg-1 mg Capsule Discontinued 2 CAP PO Daily June 25, 2023 1:00am November 17, 2023 9:48amStart: 00-73-5131wnoo 2 capsules by mouth once dailyVit C-E-Zinc Bo-Tyyr-Kso-Zeax (Icaps Areds2) 250 mg- 200 unit -12.5 mg-1 mg Capsule Active 2 CAP PO Daily June 25, 2023 1:00am Start: 44-61-9128pgky 2 capsules by mouth once dailyVit C-E-Zinc Lm-Tqzt-Hjx-Zeax (Icaps Areds2) 250 mg-200 unit -12.5 mg-1 mg Capsule Active 2 CAP PO Daily June 25, 2023 12:00amVitamin A-Vitamin C-Vit E-Min (Ocuvite) Tablet (18 sources)Start: 05-02-2022 End: 88-81-2282mudq 1 tablet by mouth once dailyVitamin A-Vitamin C-Vit E-Min (Ocuvite) Tablet Discontinued 1 TAB PO Daily May 02, 2022 12:00am May 27, 2022 10:27amStart: 05-02-2022 End: 59-11-9477lgqp 1 tablet by mouth once dailyVitamin A-Vitamin C-Vit E-Min (Ocuvite) Tablet Discontinued 1 TAB PO Daily May 01, 2022 11:00pm May 27, 2022 9:27am Problems Active Problems Problem ClassificationProblemDateDocumented DateEpisodic/ChronicAnxiety disorders (14 sources)Anxiety; Translations: [Other specified anxiety disorders]Onset: 293367-76-5085UmffhfvKlafvaimo infection; unspecified site (1 source)Other specified bacterial agents as the cause of diseases classified elsewhereEpisodicCancer of colon (20 sources)Malignant tumor of colon; Translations: [Malignant neoplasm of colon, unspecified]Onset: 765287-57-8930PymiaknSaeiph of colon (4 sources)Personal history of other malignant neoplasm of large intestine; Translations: [History of malignant neoplasm of colon]Onset: 03-03-2024 40-05-7770IyrwxepiCfgfodishl associated with dizziness or vertigo (1 source)Benign paroxysmal vertigo, unspecified earEpisodicE Codes: Cut/pierceb (1 source)Contact with contaminated hypodermic needle, initial encounter; Translations: [CNTCT CONTAMINAT HYPODRM NEEDL INIT]Onset: 53-82-2529Qjgotvyi Esophageal disorders (9 sources)Laryngopharyngeal reflux; Translations: [Gastro-esophageal reflux disease without esophagitis]Onset: 613630-53-8616PusppulYrvrysqj (10 sources)Unspecified glaucoma; Translations: [Bilateral glaucoma]Onset: 916555-82-9019CbcykemEwxmfjfsjtm chemotherapy; radiotherapy (20 sources)Patient encounter status; Translations: [Encounter for antineoplastic chemotherapy]Onset: 570039-78-8088DflzosbGpys wounds of extremities (4 sources)Puncture wound without foreign body of left index finger without damage to nail, initial encounter;Translations: [PW W/O FB LT IF W/O DMG NAIL INIT]Onset: 32-21-1908BdrlhnohNbptlzwspzyttz (13 sources)Osteoarthritis; Translations: [Unspecified osteoarthritis, unspecified site]Onset: 744296-01-2707SpdkpppZsddg lower respiratory disease (1 source)Solitary pulmonary nodule; Translations: [Solitary pulmonary nodule] Onset: 51-17-0671WlnyvfpmVgfzt lower respiratory disease (1 source)Multiple nodules of lungEpisodicOther nervous system disorders (20 sources)Peripheral neuropathy due to and following chemotherapy; 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 Other nervous system disorders (6 sources)Drug-induced polyneuropathy; Translations: [Polyneuropathy due to other toxic agents]34-15-3086TwdwiyvRwlhx nutritional; endocrine; and metabolic disorders (1 source)Glbrtpbxiq14-11-0957XwyyexnoDcnpb nutritional; endocrine; and metabolic disorders (1 source)Overweight in adulthood with body mass index of 25 or more but less than 2196-25-5319OvysxibhMnowu upper respiratory disease (12 sources)Chronic pharyngitis; Translations: [Chronic pharyngitis]Onset: 034248-15-9302DkvkttvHtonk upper respiratory disease (2 sources)Chronic pharyngitis; Translations: [...] postprocedural states; Translations: [Other specified postprocedural states]Onset: 32-53-2117XwrmpvxwOwdsjynka malignancies (1 source)Secondary and unspecified malignant neoplasm of lymph node, unspecified; Translations: [SEC AND UNSMAL JARON LYMPH NODE UNS]Onset: 04-22-2022 ChronicUnclassified (1 source)CONTACT W/AND (SUSP) EXPOS COVID-19; Translations: [CONTACT W/AND (SUSP) EXPOS COVID-19]Onset: 29-35-0071Cvudbykawxrr (1 source)Post-opOnset: 40-01-4170Tlteapblbabv (1 source)ProcedureOnset: 92-08-4468Qmrxjpgrbpku (1 source)PORT REMOVALOnset: 54-51-9736Mfvapwycbrgf (2 sources)C18.9 - Malignant neoplasm of colon, unspecifiedUnclassified (2 sources)C18.9 - Malignant neoplasm of colon, unspecified,R91.8 - Other nonspecific abnormal finding of lung field Past or Other Problems Problem ClassificationProblemDateDocumented DateEpisodic/ChronicAbdominal pain (9 sources)Generalized abdominal pain; Translations: [Left lower quadrant pain] Onset: 02-13-3842SmfqogxmWqhvnlfg of mouth; excluding dental (16 sources)Hypertrophy of salivary gland; Translations: [Hypertrophy of salivary gland]Onset: 800143-42-4321NrqcfglmLello aftercare (1 source)Other mcc (current) drug therapy; Translations: [[facility] CURRENT DRUG THERAPY]Onset: 61-50-6734GquiyocfEjjuo circulatory disease (1 source)Elevated blood-pressure reading, without diagnosis of hypertension; Translations: [ELEVATED BP READING W/O DX HTN]Onset: 55-89-7002EuicxrobChdex complications of ; puerperium affecting management of mother (8 sources) hemorrhage; Translations: [Other immediate hemorrhage]Onset: 577682-64-5169InqdmhgoYccgm female genital disorders (8 sources)Pelvic congestion syndrome; Translations: [Other specified conditions associated with female genital organs and menstrual cycle]Onset: 02-20-2023 52-30-5655SdnjmgpjDyomj nutritional; endocrine; and metabolic disorders (1 source)Abnormal weight loss; Translations: [ABNORMAL WEIGHT LOSS]Onset: 13-05-3654JywdpysyMywiv screening for suspected conditions (not mental disorders or infectious disease) (20 sources)Liver function tests abnormal; Translations: [Other specified abnormal findings of blood chemistry]Onset: 992652-59-6744VzeplremVkfoppji codes; unclassified (1 source)Past history of procedure; Translations: [Other specified postprocedural states]11-97-4218JtuuoyukMbdylwzya and history of mental health and substance abuse codes (1 source)Personal history of nicotine dependence; Translations: [PERSONAL HISTORY OF NICOTINE DEPEND]Onset: 49-73-5084Phyfothp Results Test NameValueInterpretationReference RangeFacilityCreatinine (U) [Mass/Vol]on 08-66-9036Guxyybekvw spec 2 (U) [Mass/Vol]11.00 mg/dLNOUT HealthcareComment on above:No reference range establishedCreatinine, Urine (Random)on 05-09-2025 Creatinine, Urine (Random)11.00 mg/dLNormalThe [facility] Health Physician GroupComment on above:Result Comment: No reference range establishedPerformed By: #### ERIN, URTP #### [facility] [address] [place] [address] USANo Panel Informationon 46-03-7814ZZZY HealthcareTOTAL PROTEIN, URINEon 77-82-4397Bhocmuf (U) [Mass/Vol]mg/dL0 - 9 mg/dLNOUT Healthcare Total Protein, Urineon 43-77-9722Nopdu Protein, Urine<7Qsbgbq9-4Pjk [facility] [address] Medical GroupComment on above:Result Comment: PERFORMED BY: [place] [id number] PATHOLOGIST [employer] OR LOAN UNDERWRITER CECY RODRIGUEZ M.D.Performed By: #### ERIN, URTP #### [facility] [address] [place] [address] USABasophils Auto (Bld) [#/Vol]Ordered By: Isaías Jordan on 75-77-2884Knnawusoi (Bld) [#/Vol]0.0 10 3/uL0.0-0.1FMcKitrick HospitalBasophils/100 WBC Auto (Bld)Ordered By: Isaías Jordan on 05-04-2025 Basophils/100 WBC (Bld)0.6 %0.2-2.0 Eosinophils/100 WBC Auto (Bld)Ordered By: Isaías Jordan on 05-04-2025 Eosinophils/100 WBC (Bld)1.4 %0.9-7.0 Erythrocyte distribution width Auto (RBC) [Ratio]Ordered By: Isaías Jordan on 06-02-3813Glufoctftle distribution width (RBC) [Ratio]12.2 %11.0-15.0 Globulin Calc (S) [Mass/Vol]Ordered By: Isaías Jordan on 84-79-6448Cjgxsjbj (S) [Mass/Vol]3.0 g/dLGlomerular filtration rate (GFR) estimation in non- AmericanOrdered By: Isaías Jordan on 98-77-6620IDK/1.73 sq M.predicted among non-blacks MDRD (S/P/Bld) [Vol rate/Area]mL/min/{1.73_m2}>=60 mL/min/1.73m 2 Hematocrit Auto (Bld) [Volume fraction]Ordered By: Isaías Jordan on 48-74-7706Asueriegwj (Bld) [Volume fraction]37.2 % 36.0-48.0Hemoglobin [Mass/volume] in Blood Ordered By: Isaías Jordan on 29-24-4964Bgoesqsoec (Bld) [Mass/Vol]12.4 g/dL 12.0-16.0Laboratory - Chemistry and Chemistry - challengeOrdered By: Isaías Jordan on 82-97-6888Kajxoii [Mass/Vol]3.6 g/dL 3.4-5.0ALP [Catalytic activity/Vol]67 U/L46-116 ALT [Catalytic activity/Vol]33 U/L14-59 AST [Catalytic activity/Vol]24 U/L15-37 Bilirubin [Mass/Vol]0.3 mg/dL0.2-1.0Calcium [Mass/Vol]9.0 mg/dL8.5-10.1FMcKitrick HospitalChloride [Moles/Vol]106 mmol/C23-678YzuawcaydCO2 [Moles/Vol]24.2 mmol/L21.0-32.0 Creatinine [Mass/Vol]0.48 mg/dLLow0.55-1.02 GFR/1.73 sq M.predicted MDRD (S/P/Bld) [Vol rate/Area]mL/min/{1.73_m2}>=60 mL/min/1.73m 2FMcKitrick HospitalGlucose [Mass/Vol]114 mg/dLHigh 74-106Potassium [Moles/Vol]3.9 mmol/L3.5-5.1 Protein [Mass/Vol]6.6 g/dL6.4-8.2FParkwood Hospitalodium [Moles/Vol]141 mmol/B561-955UxhroeadyUrea nitrogen [Mass/Vol]12.0 mg/dL7.0-18.0Urea nitrogen/Creatinine [Mass ratio]25.0 mg/mgLaboratory - Hematology and Cell countsOrdered By: Isaías Jordan on 05-73-7785Ahnmvuln granulocytes/100 WBC (Bld)0.3 %0.0-0.5FMcKitrick HospitalLeukocytes [#/volume] corrected for nucleated erythrocytes in Blood by Automated counOrdered By: Isaías Jordan on 96-31-6208FQY corrected for nucl RBC Auto (Bld) [#/Vol]3.6 10 3/uLLow4.0-11.0 Lymphocytes Auto (Bld) [#/Vol]Ordered By: Isaías Jordan on 85-47-3651Thhetaabhlr (Bld) [#/Vol]1.6 10 3/uL1.2-3.8 Lymphocytes/100 WBC Auto (Bld)Ordered By: Isaías Jordan on 58-13-3387Njkjeppbzsw/100 WBC (Bld)43.6 %20.5-60.0MCH Auto (RBC) [Entitic mass]Ordered By: Isaías Jordan on 05-95-5844ARE (RBC) [Entitic mass]30.8 pg26.7-34.0MCHC Auto (RBC) [Mass/Vol]Ordered By: Isaías Jordan on 49-37-4797RMST (RBC) [Mass/Vol]33.3 g/dL29.9-35.2FMcKitrick HospitalMCV Auto (RBC) [Entitic vol]Ordered By: Isaías Jordan on 90-27-4604NRY (RBC) [Entitic vol]92.3 fL81.0-99.0Monocytes Auto (Bld) [#/Vol]Ordered By: Isaías Jordan on 05-76-4477Milwfaodh (Bld) [#/Vol]0.2 10 3/uLLow0.3-0.8Monocytes/100 WBC Auto (Bld)Ordered By: Isaías Jordan on 14-66-6858Eddicfqro/100 WBC (Bld)5.5 %1.7-12.0Neutrophils Auto (Bld) [#/Vol]Ordered By: Isaías Jordan on 31-19-3896Bidgifyoolv (Bld) [#/Vol]1.8 10 3/uL1.4-6.5 Neutrophils/100 WBC Auto (Bld)Ordered By: Isaías Jordan on 46-55-4809Aurmulnnksp/100 WBC (Bld)48.6 %43.0-75.0No Panel InformationOrdered By: Isaías Jordan on 31-97-7725Udphsggpwur # (Auto)0.1 10 3/uL0.0-0.7FMcKitrick HospitalImmature Granulocyte # (Auto)0.01 10 3/uL0.00-0.03Platelet mean volume Auto (Bld) [Entitic vol]Ordered By: Isaías Jordan on 34-71-7525Itwjuabs mean volume (Bld) [Entitic vol]10.8 fL9.5-13.5 Platelets Auto (Bld) [#/Vol]Ordered By: Isaías Jordan on 85-72-5165Toiaqlqvg (Bld) [#/Vol]199 10 3/aQ610-025RaaeberrfRBC Auto (Bld) [#/Vol]Ordered By: Isaías Jordan on 03-42-2263NVO (Bld) [#/Vol]4.03 10 6/uLLow4.20-5.40[facility] Centererum or plasma albumin/globulin mass ratioOrdered By: Isaías Jordan on 13-55-9989Sbcyglq/Globulin [Mass ratio]1.2 {ratio}[facility] Medical Centererum or plasma anion gap determinationOrdered By: Isaías Jordan on 96-61-4938Ffunm gap [Moles/Vol]14.7 mmol/LFMcKitrick Hospital Basophils Auto (Bld) [#/Vol]Ordered By: Isaías Jordan on 79-13-0084Omnmnneso (Bld) [#/Vol]0.0 10 3/uL0.0-0.1FMcKitrick HospitalBasophils/100 WBC Auto (Bld)Ordered By: Isaías Jordan on 09-97-0907Lsgnfqato/100 WBC (Bld) 0.6 %0.2-2.0Eosinophils/100 WBC Auto (Bld) Ordered By: Isaías Jordan on 63-05-1739Jxbgbpryebd/100 WBC (Bld)1.2 %0.9-7.0 Erythrocyte distribution width Auto (RBC) [Ratio]Ordered By: Isaías Jordan on 09-89-0333Rtplbnfjltb distribution width (RBC) [Ratio]12.6 %11.0-15.0Globulin Calc (S) [Mass/Vol]Ordered By: Isaías Jordan on 53-67-5246Ajnctskn (S) [Mass/Vol]3.6 g/dLGlomerular filtration rate (GFR) estimation in non- AmericanOrdered By: Isaías Jordan on 13-45-6619QRG/1.73 sq M.predicted among non-blacks MDRD (S/P/Bld) [Vol rate/Area]mL/min/{1.73_m2}>=60 mL/min/1.73m 2FMcKitrick HospitalHematocrit Auto (Bld) [Volume fraction]Ordered By: Isaías Jordan on 37-50-1280Afgrzlahbr (Bld) [Volume fraction]40.9 %36.0-48.0Hemoglobin [Mass/volume] in BloodOrdered By: Isaías Jordan on 46-96-8353Fleetuvczj (Bld) [Mass/Vol]13.7 g/dL12.0-16.0Iron binding capacity [Mass/volume] in Serum or PlasmaOrdered By: Isaías Jordan on 72-90-1589Lxkk binding capacity [Mass/Vol]271.0 ug/dL250.0-450.0Iron saturation [Mass Fraction] in Serum or PlasmaOrdered By: Isaías Jordan on 09-83-3391Nvki saturation [Mass fraction]19.2 % Laboratory - Chemistry and Chemistry - challengeOrdered By: Isaías Jordan on 13-35-0225Unrfhpq [Mass/Vol]3.9 g/dL 3.4-5.0ALP [Catalytic activity/Vol]86 U/L46-116 ALT [Catalytic activity/Vol]19 U/L14-59 AST [Catalytic activity/Vol]20 U/L15-37 Bilirubin [Mass/Vol]0.6 mg/dL0.2-1.0Calcium [Mass/Vol]9.6 mg/dL8.5-10.1FMcKitrick HospitalChloride [Moles/Vol]103 mmol/S89-149ClkgmonwdCO2 [Moles/Vol]25.8 mmol/L21.0-32.0 Creatinine [Mass/Vol]0.62 mg/dL0.55-1.02 Ferritin [Mass/Vol]229.0 ng/mL8.0-252.0GFR/1.73 sq M.predicted MDRD (S/P/Bld) [Vol rate/Area]mL/min/{1.73_m2}>=60 mL/min/1.73m 2FMcKitrick HospitalGlucose [Mass/Vol]103 mg/uX22-740IhbegcjrpIron [Mass/Vol]52.0 ug/dL50.0-170.0Potassium [Moles/Vol]4.2 mmol/L3.5-5.1FMcKitrick HospitalProtein [Mass/Vol]7.5 g/dL6.4-8.2FParkwood Hospitalodium [Moles/Vol]139 mmol/B377-766YlydunnqxUrea nitrogen [Mass/Vol]14.0 mg/dL7.0-18.0Urea nitrogen/Creatinine [Mass ratio]22.6 mg/mg Laboratory - Hematology and Cell countsOrdered By: Isaías Jordan on 24-44-5937JPW (Bld) [Velocity]15 mm/h<=30 Immature granulocytes/100 WBC (Bld)0.2 %0.0-0.5FMcKitrick Hospital Leukocytes [#/volume] corrected for nucleated erythrocytes in Blood by Automated counOrdered By: Isaías Jordan on 38-45-9419XKZ corrected for nucl RBC Auto (Bld) [#/Vol]6.4 10 3/uL4.0-11.0Lymphocytes Auto (Bld) [#/Vol]Ordered By: Isaías Jordan on 16-27-1996Xxyihrqdjzs (Bld) [#/Vol]1.7 10 3/uL1.2-3.8Lymphocytes/100 WBC Auto (Bld)Ordered By: Isaías Jordan on 61-94-5634Zcgyrkbnlqr/100 WBC (Bld) 26.5 %20.5-60.0MCH Auto (RBC) [Entitic mass] Ordered By: Isaías Jordan on 46-65-1753WLB (RBC) [Entitic mass]31.5 pg 26.7-34.0MCHC Auto (RBC) [Mass/Vol]Ordered By: Isaías Jordan on 83-91-2045XIZU (RBC) [Mass/Vol]33.5 g/dL29.9-35.2FMcKitrick HospitalMCV Auto (RBC) [Entitic vol]Ordered By: Isaías Jordan on 00-99-9311UME (RBC) [Entitic vol]94.0 fL81.0-99.0Monocytes Auto (Bld) [#/Vol]Ordered By: Isaías Jordan on 04-23-2025 Monocytes (Bld) [#/Vol]0.5 10 3/uL0.3-0.8 Monocytes/100 WBC Auto (Bld)Ordered By: Isaías Jordan on 04-23-2025 Monocytes/100 WBC (Bld)7.8 %1.7-12.0Neutrophils Auto (Bld) [#/Vol]Ordered By: Isaías Jordan on 94-90-1133Qqedzmgkcto (Bld) [#/Vol]4.1 10 3/uL1.4-6.5FMcKitrick HospitalNeutrophils/100 WBC Auto (Bld)Ordered By: Isaías Jordan on 96-24-8585Tfvaqijlgia/100 WBC (Bld) 63.7 %43.0-75.0No Panel InformationOrdered By: Isaías Jordan on 39-86-8300Kjtiwwsgute # (Auto)0.1 10 3/uL0.0-0.7FMcKitrick HospitalHuman Chorionic Gonadotropin, QualNegativeNEGATIVE Immature Granulocyte # (Auto)0.01 10 3/uL 0.00-0.03Platelet mean volume Auto (Bld) [Entitic vol]Ordered By: Isaías Jordan on 75-45-6623Rluagayv mean volume (Bld) [Entitic vol]11.3 fL9.5-13.5FMcKitrick HospitalPlatelets Auto (Bld) [#/Vol]Ordered By: Isaías Jordan on 63-44-7990Gajssnygm (Bld) [#/Vol]197 10 3/fZ098-597PbqdgkcuqRBC Auto (Bld) [#/Vol] Ordered By: Isaías Jordan on 19-74-4030QED (Bld) [#/Vol]4.35 10 6/uL 4.20-5.40[facility] Medical Centererum or plasma albumin/globulin mass ratioOrdered By: Isaías Jordan on 31-20-0657Rnsofsu/Globulin [Mass ratio]1.1 {ratio}[facility] Medical Centererum or plasma anion gap determination Ordered By: Isaías Jordan on 06-49-6340Wwlkh gap [Moles/Vol]14.4 mmol/L [facility] Medical Centererum or plasma cancer antigen 125 (CA-125) measurement (units/volume)Ordered By: Isaías Jordan on 51-75-5174Shlume Ag 125 Qn11.5 [arb'U]/mL0.0-38.1FMcKitrick HospitalComment on above: [employer] Electrochemiluminescence Immunoassay(ECLIA)Values obtained with different assay methods or kits cannotbe used interchangeably. Results cannot be interpreted asabsolute evidence of the presence or absence of malignantdisease.Performed at: [address] [id number] Director: Edilson Saunders PhD, Phone: [phone] Visit Summaryon 06-77-2632Anvcltbomi Visit SummaryAmbulatory Visit Summary MARYSOL JACOBSON :1965 [...] signed up for this yet, please contact [employer] at [phone] to get signed up today. Language Information Language assistance services are available as needed. [facility] HospitalCT NEEDLE BIOPSY LUNG PERCUTANEOUS W IMAGING GUIDANCEon 30-73-7426TD NEEDLE BIOPSY LUNG PERCUTANEOUS W IMAGING GUIDANCEIMPRESSION: [...] Signed by: Ender Sanchez MD 04/12/25 Final resultNoMemorial Hospital Northurgical Specimenon 04-11-2025 [facility]Ohio[facility] [address] [place] [address] FINAL SURGICAL PATHOLOGY REPORT Patient Name: MARYSOL JACOBSON Accession No: [id number] Age Sex: 1965 Location: DIS Account No: [id number] Collected: 04/11/2025 [facility] Rec No: [id number] Received: 04/12/2025 Attend Phys: ENDER SANCHEZ Completed: [...] where the core is present. PSW/BEH CPT: 21803 X1 06232 X2 34260 X1 J MIC DONNELLY M.D. 04/14/2025 Electronically signed out by [address] [place], [place] [address]Comment on above:Performed By: #### PRESLEY #### [facility] [address] [place], [place] [id number] QR CHEST (2 VW)on 47-45-5867MH CHEST (2 VW)IMPRESSION: 1. No evidence of [...] Signed by: Ender Sanchez MD 04/11/25 Final resultNormalKindred Hospital AuroraINR in Platelet poor plasma by Coagulation assayOrdered By: Outside Provider on 89-58-1672YIH Coag (PPP) [Relative time]1.03 {INR}Comment on above: DESIRED INR:2.0-3.0 CONDITIONS NOT LISTED BELOW2.5-3.5 FOR PROSTHETIC HEART VALVE REPLACEMENT2.5-3.5 RECURRENT THROMBOSISProthrombin time (PT)Ordered By: Outside Provider on 65-43-3444EM Coag (PPP) [Time]10.9 s9.0-11.6FMcKitrick HospitalGLUCOSE POCT GLUCOMETERSon 38-73-0695Fnsrgqj [Mass/Vol] 100 mg/dLNOUT HealthcareComment on above:Random Glucose Reference Range is dependent on time and content of last meal. Glucose of more than 200 mg/dL in a nonstressed, ambulatory subject supports the diagnosis of Diabetes Mellitus. [facility] Health CenterGlucose Poct Glucometerson 41-95-8586Esaztgn [Mass/Vol]100 mg/dL NormalThe Atrium Health Physician GroupComment on above:Result Comment: Random Glucose Reference Range is dependent on time and content of last meal. Glucose of more than 200 mg/dL in a nonstressed, ambulatory subject supports the diagnosis of Diabetes Mellitus. PERFORMED BY: [place] [address] PATHOLOGIST MORTGAGE OR LOAN UNDERWRITER CECY RODRIGUEZ M.D.Performed By: #### GLULS #### Point of Care testing ,PET tumor init tx strat sb-mton 54-48-5977KZE tumor init tx strat sb-mt [facility] [place] [address] Nuclear Medicine Report Signed Patient: Marysol Jacobson MR#: [id number] 22 : 1965 Acct:[id number] Age/Sex: 59 / F ADM Date: 03/30/25 Loc: Room: Type: [facility] RCR Attending Dr: Randy Turner FOOTWEAR STITCHER Copies to: Andres Wallis Jr, DO Mary [...] Jr., D.OJennifer 03/30/2025 11:44 AM Dictation Location: [place] [address] Transcribed By: [facility] 03/30/25 1144 Dictated By: Andres Wallis Jr 03/30/25 1134 Signed By: 03/30/25 1144[facility] Physician GroupBasophils Auto (Bld) [#/Vol] Ordered By: Isaías Jordan on 75-49-7747Rqgeijbsw (Bld) [#/Vol]0.0 10 3/uL 0.0-0.1FMcKitrick HospitalBasophils/100 WBC Auto (Bld)Ordered By: Isaías Jordan on 43-16-7457Kkqwmumnq/100 WBC (Bld)0.6 %0.2-2.0Eosinophils/100 WBC Auto (Bld)Ordered By: Isaías Jordan on 41-29-1763Jfsddaxvcrf/100 WBC (Bld)2.1 %0.9-7.0Erythrocyte distribution width Auto (RBC) [Ratio]Ordered By: Isaías Jordan on 00-26-0737Cyelihipcdw distribution width (RBC) [Ratio]13.2 %11.0-15.0Globulin Calc (S) [Mass/Vol]Ordered By: Isaías Jordan on 32-81-0164Hywntylg (S) [Mass/Vol]3.7 g/dLGlomerular filtration rate (GFR) estimation in non- AmericanOrdered By: sIaías Jordan on 56-27-3608YVB/1.73 sq M.predicted among non-blacks MDRD (S/P/Bld) [Vol rate/Area]mL/min/{1.73_m2}>=60 mL/min/1.73m 2FMcKitrick HospitalHematocrit Auto (Bld) [Volume fraction]Ordered By: Isaías Jordan on 77-03-9533Cimfvihypz (Bld) [Volume fraction]41.6 %36.0-48.0Hemoglobin [Mass/volume] in BloodOrdered By: Isaías Jordan on 16-38-0636Owlaxcdjfc (Bld) [Mass/Vol]13.9 g/dL12.0-16.0Laboratory - Chemistry and Chemistry - challengeOrdered By: Isaías Jordan on 03-17-2025 Albumin [Mass/Vol]3.8 g/dL3.4-5.0ALP [Catalytic activity/Vol]81 U/H98-723PglobqtfaALT [Catalytic activity/Vol]24 U/R17-78TimvdjofeAST [Catalytic activity/Vol]22 U/H79-03BtjtensycBilirubin [Mass/Vol]0.5 mg/dL0.2-1.0Calcium [Mass/Vol]9.1 mg/dL 8.5-10.1FMcKitrick HospitalChloride [Moles/Vol]105 mmol/L98-107 CO2 [Moles/Vol]27.3 mmol/L21.0-32.0Creatinine [Mass/Vol]0.57 mg/dL0.55-1.02GFR/1.73 sq M.predicted MDRD (S/P/Bld) [Vol rate/Area] mL/min/{1.73_m2}>=60 mL/min/1.73m 2FMcKitrick HospitalGlucose [Mass/Vol]100 mg/hO73-921VxiahubmcPotassium [Moles/Vol] 3.9 mmol/L3.5-5.1FMcKitrick HospitalProtein [Mass/Vol]7.5 g/dL 6.4-8.2FParkwood Hospitalodium [Moles/Vol]140 mmol/M740-400 Urea nitrogen [Mass/Vol]13.0 mg/dL7.0-18.0 Urea nitrogen/Creatinine [Mass ratio]22.8 mg/mg Laboratory - Hematology and Cell countsOrdered By: Isaías Jordan on 28-31-5768Wtsiydcc granulocytes/100 WBC (Bld)0.2 % 0.0-0.5FMcKitrick HospitalLeukocytes [#/volume] corrected for nucleated erythrocytes in Blood by Automated counOrdered By: Isaías Jordan on 61-47-4749AKO corrected for nucl RBC Auto (Bld) [#/Vol]4.9 10 3/uL4.0-11.0 Lymphocytes Auto (Bld) [#/Vol]Ordered By: Isaías Jordan on 16-36-6812Webajxhveyh (Bld) [#/Vol]1.5 10 3/uL1.2-3.8 Lymphocytes/100 WBC Auto (Bld)Ordered By: Isaías Jordan on 83-58-3572Uhppjogrvkv/100 WBC (Bld)31.1 %20.5-60.0[facility] Auto (RBC) [Entitic mass]Ordered By: Isaías Jordan on 22-22-1173ZIU (RBC) [Entitic mass]31.9 pg26.7-34.0MCHC Auto (RBC) [Mass/Vol]Ordered By: Isaías Jordan on 22-63-5577BHEN (RBC) [Mass/Vol]33.4 g/dL29.9-35.2FMcKitrick HospitalMCV Auto (RBC) [Entitic vol]Ordered By: Isaías Jordan on 97-74-6915DHX (RBC) [Entitic vol]95.4 fL81.0-99.0Monocytes Auto (Bld) [#/Vol]Ordered By: Isaías Jordan on 76-71-1215Wyqopuxah (Bld) [#/Vol]0.5 10 3/uL0.3-0.8Monocytes/100 WBC Auto (Bld)Ordered By: Isaías Jordan on 99-64-6354Ckpsvzmnr/100 WBC (Bld)9.9 % 1.7-12.0Neutrophils Auto (Bld) [#/Vol]Ordered By: Isaías Jordan on 15-31-5095Kkqtrtfwjwd (Bld) [#/Vol]2.7 10 3/uL1.4-6.5 Neutrophils/100 WBC Auto (Bld)Ordered By: Isaías Jordan on 39-90-8574Gvbbtjioiwz/100 WBC (Bld)56.1 %43.0-75.0No Panel InformationOrdered By: Isaías Jordan on 96-14-3145Fyqsusnzqld # (Auto)0.1 10 3/uL0.0-0.7FMcKitrick HospitalImmature Granulocyte # (Auto)0.01 10 3/uL0.00-0.03Platelet mean volume Auto (Bld) [Entitic vol]Ordered By: Isaías Jordan on 67-02-4109Vxphngxb mean volume (Bld) [Entitic vol]10.4 fL9.5-13.5 Platelets Auto (Bld) [#/Vol]Ordered By: Isaías Jordan on 33-64-8484Ppigzgncy (Bld) [#/Vol]206 10 3/oS465-388JticviywfRBC Auto (Bld) [#/Vol]Ordered By: Isaías Jordna on 54-06-4712ZOH (Bld) [#/Vol]4.36 10 6/uL4.20-5.40[facility] Medical Centererum or plasma albumin/globulin mass ratioOrdered By: Isaías Jordan on 49-55-8011Doguxzi/Globulin [Mass ratio]1.0 {ratio}[facility] Medical Centererum or plasma anion gap determinationOrdered By: Isaías Jordan on 46-29-8611Cjqud gap [Moles/Vol]11.6 mmol/LFMcKitrick Hospital Pathology Request for Lab Corpon 26-73-0426Ggxbtwtgh Request for Lab CorpNormal The Atrium Health Physician GroupComment on above:Order Comment: GI SPECIMENResult Comment: See report. Scanned copy available in EMR. PERFORMED BY: [place] [address] PATHOLOGIST MORTGAGE OR LOAN UNDERWRITER CECY RODRIGUEZ M.D.Performed By: #### [facility] TO [facility] #### [place] [address] USABasophils Auto (Bld) [#/Vol]Ordered By: Sandro Chin on 52-44-6454Ihzcxpshw (Bld) [#/Vol]0.0 10 3/uL0.0-0.1FMcKitrick HospitalBasophils/100 WBC Auto (Bld)Ordered By: Sandro Chin on 12-25-2024 Basophils/100 WBC (Bld)0.8 %0.2-2.0Cholesterol in LDL Calc [Mass/Vol]Ordered By: Sandro Chin on 75-78-8320Hdpejognqjs in LDL [Mass/Vol]157.0 mg/dLComment on above:<100 mg/dl UNWPKQC643-061 mg/dl NEAR OR ABOVE AGGQHHQ474-048 mg/dl BORDERLINE XSCN043-947 mg/dl HIGH>190 mg/dl VERY HIGHCholesterol in VLDL Calc [Mass/Vol] Ordered By: Sandro Chin on 23-31-7718Lvilcknxmtt in VLDL [Mass/Vol]14.0 mg/dL Eosinophils/100 WBC Auto (Bld)Ordered By: Sandro Chin on 26-63-6197Psxfonjyupr/100 WBC (Bld)1.5 %0.9-7.0Erythrocyte distribution width Auto (RBC) [Ratio]Ordered By: Sandro Chin on 73-25-8405Scvgjpfxgtv distribution width (RBC) [Ratio]13.4 % 11.0-15.0Estimated glomerular filtration rate (GFR) non- AmericanOrdered By: Sandro Chin on 49-23-3668BFK/1.73 sq M.predicted among non-blacks MDRD (S/P/Bld) [Vol rate/Area]mL/min/{1.73_m2}>=60 mL/min/1.73m 2FMcKitrick HospitalGlobulin Calc (S) [Mass/Vol] Ordered By: Sandro Chin on 39-95-1558Atvmyguh (S) [Mass/Vol]3.5 g/dLGlucose mean value [Mass/volume] in Blood Estimated from glycated hemoglobinOrdered By: Sandro Chin on 27-69-5117Sdbmeyq glucose Estimated from glycated hemoglobin (Bld) [Mass/Vol]111 mg/dLHematocrit Auto (Bld) [Volume fraction]Ordered By: Sandro Chin on 47-41-0651Lzhvqtjyid (Bld) [Volume fraction]41.8 %36.0-48.0Hemoglobin A1c percentageOrdered By: Sandro Chin on 12-25-2024 HbA1c (Bld) [Mass fraction]5.5 %4.5-6.2FMcKitrick HospitalComment on above:ADA RECOMMENDED LIMIT 4.0 - 6.0ADA THERAPEUTIC TARGET < 7.0ACTION SUGGESTED> 7.0Hemoglobin [Mass/volume] in BloodOrdered By: Sandro Chin on 96-78-9832Bwqbzlcrcp (Bld) [Mass/Vol]13.9 g/dL12.0-16.0Laboratory - Chemistry and Chemistry - challengeOrdered By: Sandro Chin on 24-81-6970Hauktwu [Mass/Vol]4.0 g/dL3.4-5.0ALP [Catalytic activity/Vol]76 U/X19-093Bsnkgdqlq ALT [Catalytic activity/Vol]24 U/A98-70YgzfljcoqAST [Catalytic activity/Vol]14 U/HNtb12-65KdlkskqwnBilirubin [Mass/Vol]0.6 mg/dL0.2-1.0Calcium [Mass/Vol]9.6 mg/dL8.5-10.1FMcKitrick HospitalChloride [Moles/Vol]106 mmol/L 98-107Cholesterol [Mass/Vol]219 mg/dLHigh<=200 Cholesterol in HDL [Mass/Vol]48 mg/dL40-60 Comment on above:> or =60 mg/dl - LOW CARDIOVASCULAR RISK<40 mg/dl - HIGH CARDIOVASCULAR RISKCO2 [Moles/Vol]28.6 mmol/L21.0-32.0Creatinine [Mass/Vol]0.67 mg/dL 0.55-1.02GFR/1.73 sq M.predicted MDRD (S/P/Bld) [Vol rate/Area]mL/min/{1.73_m2}>=60 mL/min/1.73m 2FMcKitrick HospitalGlucose [Mass/Vol]88 mg/vI83-746WfaxygjuaPotassium [Moles/Vol]3.9 mmol/L3.5-5.1FMcKitrick HospitalProtein [Mass/Vol] 7.5 g/dL6.4-8.2FParkwood Hospitalodium [Moles/Vol]144 mmol/L 136-145Triglyceride [Mass/Vol]70 mg/dL<=150 Urea nitrogen [Mass/Vol]19.0 mg/dLHigh7.0-18.0 Urea nitrogen/Creatinine [Mass ratio]28.4 mg/mg Laboratory - Hematology and Cell countsOrdered By: Sandro Chin on 38-13-6253Umtnnmmp granulocytes/100 WBC (Bld)0.2 %0.0-0.5 Leukocytes [#/volume] corrected for nucleated erythrocytes in Blood by Automated counOrdered By: Sandro Chin on 32-59-4138XHM corrected for nucl RBC Auto (Bld) [#/Vol]4.8 10 3/uL4.0-11.0Lymphocytes Auto (Bld) [#/Vol]Ordered By: Sandro Chin on 01-20-0580Artgbcxhcpe (Bld) [#/Vol]1.7 10 3/uL1.2-3.8Lymphocytes/100 WBC Auto (Bld)Ordered By: Sandro Chin on 12-25-2024 Lymphocytes/100 WBC (Bld)36.1 %20.5-60.0[facility] Auto (RBC) [Entitic mass]Ordered By: Sandro Chin on 03-70-1159EJO (RBC) [Entitic mass]31.8 pg26.7-34.0MC Auto (RBC) [Mass/Vol]Ordered By: Sandro Chin on 22-28-2233LYTX (RBC) [Mass/Vol]33.3 g/dL 29.9-35.2FMcKitrick HospitalMCV Auto (RBC) [Entitic vol]Ordered By: Sandro Chin on 86-59-5562DCC (RBC) [Entitic vol]95.7 fL81.0-99.0Monocytes Auto (Bld) [#/Vol]Ordered By: Sandro Chin on 77-45-2932Osghiocsy (Bld) [#/Vol]0.3 10 3/uL0.3-0.8Monocytes/100 WBC Auto (Bld)Ordered By: Sandro Chin on 12-25-2024 Monocytes/100 WBC (Bld)6.8 %1.7-12.0Neutrophils Auto (Bld) [#/Vol]Ordered By: Sandro Chin on 35-32-2030Rhkmepqbiet (Bld) [#/Vol]2.6 10 3/uL1.4-6.5FMcKitrick HospitalNeutrophils/100 WBC Auto (Bld)Ordered By: Sandro Chin on 48-57-8574Anncogwhvsd/100 WBC (Bld)54.6 % 43.0-75.0No Panel InformationOrdered By: Sandro Chin on 37-48-3967Tkpckhtqgkw # (Auto)0.1 10 3/uL0.0-0.7FMcKitrick HospitalImmature Granulocyte # (Auto)0.01 10 3/uL0.00-0.03Platelet mean volume Auto (Bld) [Entitic vol]Ordered By: Sandro Chin on 08-10-1983Qfuuftaq mean volume (Bld) [Entitic vol]10.9 fL 9.5-13.5FMcKitrick HospitalPlatelets Auto (Bld) [#/Vol]Ordered By: Sandro Chin on 48-66-8468Qercdcwrf (Bld) [#/Vol]210 10 3/vW841-769JdhauyymhRBC Auto (Bld) [#/Vol]Ordered By: Sandro Chin on 77-80-7638DDZ (Bld) [#/Vol]4.37 10 6/uL4.20-5.40[facility] Centererum or plasma albumin/globulin mass ratioOrdered By: Sandro Chin on 47-87-4052Fpbxfto/Globulin [Mass ratio]1.1 {ratio}[facility] Centererum or plasma anion gap determinationOrdered By: Sandro Chin on 18-37-8694Imumj gap [Moles/Vol]13.3 mmol/LFParkwood Hospitalerum or plasma total cholesterol/high density lipoprotein (HDL) cholesterol mass rat Ordered By: Sandro Chin on 17-66-7302Paxlnqbtvef.total/Cholesterol in HDL [Mass ratio]4.6 {ratio}Comment on above:3.3 - 4.4 LOW RISK4.4 - 7.1 AVERAGE RISK7.1 - 11.0 MODERATE RISK>11.0 HIGH RISKChlamydia trachomatis rRNA [Presence] in Cervix by MARIVEL with probe detectionOrdered By: Sandro Chin on 12-20-2024. trachomatis rRNA MARIVEL+probe Ql (Cvx)NegativeNegative Neisseria gonorrhoeae rRNA [Presence] in Cervix by MARIVEL with probe detectionOrdered By: Sandro Chin on 12-20-2024N. gonorrhoeae rRNA MARIVEL+probe Ql (Cvx)NegativeNegativeComment on above:Performed at: WB - [facility] [id number] Director: Che Swenson MD, Phone: [phone] at: =G - [facility] [address] [id number] Director: Che Swenson MD, Phone: [phone] Panel InformationOrdered By: Sandro Chin on 83-21-5836RX Pap w/Ct-Ng & HPV (Off-Site)Note. Comment on above:TESTS RESULT FLAG UNITS REF RANGE LAB Clinician Provided Cytology Information No. of containers..01 ThinPrep VialDIAGNOSIS: 01 NEGATIVE FORINTRAEPITHELIAL LESION OR MALIGNANCY. CELLULAR CHANGES ASSOCIATED WITH ATROPHY AND INFLAMMATION AREPRESENT.Specimen adequacy: 01 Satisfactory for evaluation. Endocervical component may not be distinguished in cases of atrophy.Performed by: 01 Nella Hines, Food Or Baggage Handling [place] ([facility]). 01Note: Note 01 The Pap smear is a screening test designed to aid in the detection of premalignant and malignant conditions of the uterine cervix. It is not a diagnostic procedure and should not be used as the sole means of detecting cervical cancer. Both false-positive and false-negative reports do occur.Test Methodology: Note 01 The Ambrx(R) Chauffeur was unable to read this specimen. Therefore a manual review was performed.. 01 The HPV DNA reflex criteria were not met with this specimen result therefore, no HPV testing was performed. FLAG LEGEND: L-Low Normal,H-High Normal,LL-Alert Low,HH-Alert High <-Panic Low,>- Panic High,A-Abnormal,AA-Critical Abnormal Performed at:01 [facility] [address] Che Swenson MD, Uvf IG, CtNg, rfx HPV Aptimaon 81-61-4090COF Chlamydia NAANegativeNormalNegativeThe Atrium Health Physician GroupComment on above:Performed By: #### PAP #### [facility] ,PAP GonococcusNegativeNormalNegativeThe Atrium Health Physician GroupComment on above:Result Comment: Performed at: - [facility] [address], [place] [id number] Manager Fund: Che Swenson MD, Phone: [phone] Performed at: =G - [facility] [address] [place], [place] [id number] Manager Fund: Che Swenson MD, Phone: [phone] PERFORMED BY: [facility] [place] [address] PATHOLOGIST MORTGAGE OR LOAN UNDERWRITER CECY RODRIGUEZ M.D.Performed By: #### PAP [id number] #### [facility] ,Pap IGNoteNormal.The [facility] Health Physician GroupComment on above:Result Comment: TESTS RESULT FLAG UNITS REF RANGE LAB Clinician Provided Cytology Information No. of containers..01 ThinPrep Vial DIAGNOSIS: 01 NEGATIVE FOR INTRAEPITHELIAL LESION OR MALIGNANCY. CELLULAR CHANGES ASSOCIATED WITH ATROPHY AND INFLAMMATION ARE PRESENT. Specimen adequacy: 01 Satisfactory for evaluation. Endocervical component may not be distinguished in cases of atrophy. Performed by: Kenton Hines, [employer] [place] ([facility]) . 01 Note: Note 01 The Pap smear is a screening test designed to aid in the detection of premalignant and malignant conditions of the uterine cervix. It is not a diagnostic procedure and should not be used as the sole means of detecting cervical cancer. Both false-positive and false-negative reports do occur. Test Methodology: Note 01 The Thin [employer]) Chauffeur was unable to read this specimen. Therefore a manual review was performed. . 01 The HPV DNA reflex criteria were not met with this specimen result therefore, no HPV testing was performed. FLAG LEGEND: L-Low Normal,H-High Normal,LL-Alert Low,HH-Alert High <-Panic Low,>-Panic High,A-Abnormal,AA-Critical Abnormal Performed at: 01 [facility] [address] [address] Che Swenson MD, Jnsvvydyr By: #### PAP [id number] #### [facility] ,Basophils Auto (Bld) [#/Vol]on 30-59-9622Myxedwcul (Bld) [#/Vol]Automated basophil count0.0-0.1FMcKitrick HospitalBasophils/100 WBC Auto (Bld)on 70-14-9943Ikslinoic/100 WBC (Bld)Automated basophil %0.2-2.0Eosinophils/100 WBC Auto (Bld)on 08-24-2024 Eosinophils/100 WBC (Bld)Automated eosinophil %0.9-7.0Erythrocyte distribution width Auto (RBC) [Ratio]on 84-71-7838Objpagzpehs distribution width (RBC) [Ratio]Erythrocyte distribution width [Ratio] by Automated count11.0-15.0Estimated glomerular filtration rate (GFR) non- Americanon 32-52-0072FRS/1.73 sq M.predicted among non-blacks MDRD (S/P/Bld) [Vol rate/Area]Estimated glomerular filtration rate (GFR) non->=60 mL/min/1.73m 2FMcKitrick HospitalGlobulin Calc (S) [Mass/Vol]on 99-45-9922Xhawvyej (S) [Mass/Vol]Serum globulin measurement by calculation (mass/volume)Hematocrit Auto (Bld) [Volume fraction]on 37-71-7071Ppbzjegaxj (Bld) [Volume fraction]Hematocrit [Volume Fraction] of Blood by Automated count 36.0-48.0Hemoglobin [Mass/volume] in Bloodon 36-33-9153Pqknacjqqm (Bld) [Mass/Vol]Hemoglobin [Mass/volume] in Blood12.0-16.0 Laboratory - Chemistry and Chemistry - challengeon 05-58-2776Nlswiym [Mass/Vol]3.9 g/dL3.4-5.0ALP [Catalytic activity/Vol]75 U/Q69-336UiwjkbkvuALT [Catalytic activity/Vol]20 U/E04-87Enfbozmbi AST [Catalytic activity/Vol]20 U/F96-24Tzltznemd Bilirubin [Mass/Vol]0.6 mg/dL0.2-1.0Calcium [Mass/Vol]9.3 mg/dL8.5-10.1FMcKitrick HospitalChloride [Moles/Vol] 103 mmol/M38-501BzxrgeccuCO2 [Moles/Vol]27.7 mmol/L 21.0-32.0Creatinine [Mass/Vol]0.69 mg/dL 0.55-1.02GFR/1.73 sq M.predicted MDRD (S/P/Bld) [Vol rate/Area]mL/min/{1.73_m2}>=60 mL/min/1.73m 2FMcKitrick HospitalGlucose [Mass/Vol]106 mg/vU82-849Byuiccnlz Potassium [Moles/Vol]4.2 mmol/L3.5-5.1FMcKitrick HospitalProtein [Mass/Vol]7.4 g/dL6.4-8.2FParkwood Hospitalodium [Moles/Vol]135 mmol/KNhm285-049NjfutingbUrea nitrogen [Mass/Vol]11.0 mg/dL7.0-18.0Urea nitrogen/Creatinine [Mass ratio]15.9 mg/mgLaboratory - Hematology and Cell countson 98-71-0725Uvnvvujs granulocytes/100 WBC (Bld)0.2 %0.0-0.5FMcKitrick HospitalLeukocytes [#/volume] corrected for nucleated erythrocytes in Blood by Automated counon 45-97-4061GUX corrected for nucl RBC Auto (Bld) [#/Vol]Leukocytes [#/volume] corrected for nucleated erythrocytes in Blood by Automated coun4.0-11.0Lymphocytes Auto (Bld) [#/Vol]on 92-32-8196Igxtbrcrtjq (Bld) [#/Vol]Lymphocytes [#/volume] in Blood by Automated count1.2-3.8Lymphocytes/100 WBC Auto (Bld)on 00-29-6450Trchtizwxpo/100 WBC (Bld)Lymphocytes/100 leukocytes in Blood by Automated count20.5-60.0[facility] Auto (RBC) [Entitic mass]on 78-09-2447OGY (RBC) [Entitic mass]MCH [Entitic mass] by Automated count26.7-34.0[facility] HospitalHC Auto (RBC) [Mass/Vol]on 40-87-4425WUYN (RBC) [Mass/Vol]MCHC [Mass/volume] by Automated count29.9-35.2FMcKitrick HospitalMCV Auto (RBC) [Entitic vol]on 39-76-0064EDX (RBC) [Entitic vol]MCV [Entitic volume] by Automated count 81.0-99.0Monocytes Auto (Bld) [#/Vol]on 30-92-5664Jpdpgavrd (Bld) [#/Vol]Automated blood monocyte count0.3-0.8Monocytes/100 WBC Auto (Bld)on 72-18-6430Mpelbikso/100 WBC (Bld)Automated monocyte %1.7-12.0 Neutrophils Auto (Bld) [#/Vol]on 71-52-5499Xieamyaqhvz (Bld) [#/Vol]Neutrophils [#/volume] in Blood by Automated count1.4-6.5FMcKitrick Hospital Neutrophils/100 WBC Auto (Bld)on 69-38-2410Cckojqbugcp/100 WBC (Bld)Automated neutrophil %43.0-75.0No Panel Informationon 39-97-9374Laxxlrgcjjm # (Auto)0.1 10 3/uL0.0-0.7FMcKitrick HospitalImmature Granulocyte # (Auto)0.01 10 3/uL0.00-0.03Platelet mean volume Auto (Bld) [Entitic vol]on 99-38-2659Mhdxzimu mean volume (Bld) [Entitic vol]Platelet mean volume [Entitic volume] in Blood by Automated count9.5-13.5FMcKitrick HospitalPlatelets Auto (Bld) [#/Vol]on 48-25-4410Doxwhvjxi (Bld) [#/Vol]Platelets [#/volume] in Blood by Automated jxkle112-575ZmphneidvRBC Auto (Bld) [#/Vol]on 58-41-3247FBI (Bld) [#/Vol]Erythrocytes [#/volume] in Blood by Automated count 4.20-5.40[facility] Centererum or plasma albumin/globulin mass ratioon 86-35-7513Zdlwwvi/Globulin [Mass ratio]Serum or plasma albumin/globulin mass ratioUniversity Hospitals Ahuja Medical Centererum or plasma anion gap determinationon 02-09-9419Vjzde gap [Moles/Vol]Serum or plasma anion gap determinationBasophils Auto (Bld) [#/Vol]on 76-04-6062Usdmnwvdr (Bld) [#/Vol]0.1 10 3/uL0.0-0.1FMcKitrick HospitalBasophils/100 WBC Auto (Bld)on 24-37-3041Cudzwgsmd/100 WBC (Bld)1.0 % 0.2-2.0Eosinophils/100 WBC Auto (Bld)on 89-91-6128Sekiavjtyob/100 WBC (Bld)1.8 %0.9-7.0 Erythrocyte distribution width Auto (RBC) [Ratio]on 72-40-7248Phqeemvzlle distribution width (RBC) [Ratio]13.1 %11.0-15.0 Estimated glomerular filtration rate (GFR) non- Americanon 01-15-2024 GFR/1.73 sq M.predicted among non-blacks MDRD (S/P/Bld) [Vol rate/Area] mL/min/{1.73_m2}>=60Globulin Calc (S) [Mass/Vol]on 89-95-1138Mksvkfiy (S) [Mass/Vol]3.6 g/dLHematocrit Auto (Bld) [Volume fraction]on 93-32-1382Fypxwqjsjh (Bld) [Volume fraction]42.6 %36.0-48.0Hemoglobin [Mass/volume] in Bloodon 20-27-5371Hpwbwnvsdb (Bld) [Mass/Vol]13.7 g/dL12.0-16.0 Laboratory - Chemistry and Chemistry - challengeon 29-78-0548Lxqbuxx [Mass/Vol]4.0 g/dL3.4-5.0ALP [Catalytic activity/Vol]90 U/A47-054WsabasugjALT [Catalytic activity/Vol]22 U/Z37-40Wmtpinasl AST [Catalytic activity/Vol]21 U/K18-40Hjpbnbazj Bilirubin [Mass/Vol]0.6 mg/dL0.2-1.0Calcium [Mass/Vol]9.6 mg/dL8.5-10.1FMcKitrick HospitalChloride [Moles/Vol] 102 mmol/K72-411VitcvgzdjCO2 [Moles/Vol]26.2 mmol/L 21.0-32.0Creatinine [Mass/Vol]0.60 mg/dL 0.55-1.02GFR/1.73 sq M.predicted MDRD (S/P/Bld) [Vol rate/Area]mL/min/{1.73_m2}>=60Glucose [Mass/Vol]107 mg/bZXerl48-816XlypeufdgPotassium [Moles/Vol]4.2 mmol/L3.5-5.1FMcKitrick HospitalProtein [Mass/Vol] 7.6 g/dL6.4-8.2FParkwood Hospitalodium [Moles/Vol]136 mmol/L 136-145Urea nitrogen [Mass/Vol]13.0 mg/dL 7.0-18.0Urea nitrogen/Creatinine [Mass ratio] 21.7 mg/mgLaboratory - Hematology and Cell countson 83-26-7964Lumxhskk granulocytes/100 WBC (Bld)0.2 %0.0-0.5FMcKitrick HospitalLeukocytes [#/volume] corrected for nucleated erythrocytes in Blood by Automated counon 67-74-3094QGH corrected for nucl RBC Auto (Bld) [#/Vol]5.0 10 3/uL4.0-11.0 Lymphocytes Auto (Bld) [#/Vol]on 56-17-9644Kafirlpiqrc (Bld) [#/Vol]2.0 10 3/uL 1.2-3.8Lymphocytes/100 WBC Auto (Bld)on 65-53-4592Oywiszaabdh/100 WBC (Bld)39.4 %20.5-60.0[facility] Auto (RBC) [Entitic mass]on 18-33-9871UBX (RBC) [Entitic mass]32.2 pg 26.7-34.0MCHC Auto (RBC) [Mass/Vol]on 69-21-7335ZHNU (RBC) [Mass/Vol]32.2 g/dL29.9-35.2FMcKitrick HospitalMCV Auto (RBC) [Entitic vol]on 60-27-9469YOV (RBC) [Entitic vol]100.0 fL High81.0-99.0Monocytes Auto (Bld) [#/Vol]on 95-20-5471Phuitvobd (Bld) [#/Vol]0.5 10 3/uL0.3-0.8[facility] CenterMonocytes/100 WBC Auto (Bld)on 04-96-9938Gppjmfqyo/100 WBC (Bld)9.1 % 1.7-12.0Neutrophils Auto (Bld) [#/Vol]on 76-73-8200Ysawuicoiml (Bld) [#/Vol]2.4 10 3/uL1.4-6.5FMcKitrick HospitalNeutrophils/100 WBC Auto (Bld)on 48-40-1386Arllscszthg/100 WBC (Bld)48.5 % 43.0-75.0No Panel Informationon 01-15-2024 Eosinophils # (Auto)0.1 10 3/uL0.0-0.7FMcKitrick HospitalImmature Granulocyte # (Auto)0.01 10 3/uL0.00-0.03 Platelet mean volume Auto (Bld) [Entitic vol]on 81-07-2182Ddtoybls mean volume (Bld) [Entitic vol]10.9 fL9.5-13.5FMcKitrick HospitalPlatelets Auto (Bld) [#/Vol]on 75-46-9148Utogbambu (Bld) [#/Vol]197 10 3/wM345-782 RBC Auto (Bld) [#/Vol]on 21-08-8714FFD (Bld) [#/Vol]4.26 10 6/uL4.20-5.40[facility] Centererum or plasma albumin/globulin mass ratioon 68-30-6365Yjqilsp/Globulin [Mass ratio]1.1 {ratio} [facility] Centererum or plasma anion gap determinationon 97-81-7395Tdamv gap [Moles/Vol]12.0 mmol/LFMcKitrick Hospital Basophils Auto (Bld) [#/Vol]on 90-85-6961Mevkcibiu (Bld) [#/Vol]0.0 10 3/uL 0.0-0.1FMcKitrick HospitalBasophils/100 WBC Auto (Bld)on 26-01-9316Hvigocqlj/100 WBC (Bld)0.9 %0.2-2.0 Cholesterol in LDL Calc [Mass/Vol]on 02-40-6567Oxfmfergfxm in LDL [Mass/Vol] 179.0 mg/dLComment on above:<100 mg/dl ATIGMJA463-061 mg/dl NEAR OR ABOVE EINAPIB058-222 mg/dl BORDERLINE TCNF862-627 mg/dl HIGH>190 mg/dl VERY HIGHCholesterol in VLDL Calc [Mass/Vol]on 11-26-2023 Cholesterol in VLDL [Mass/Vol]28.0 mg/dL Eosinophils/100 WBC Auto (Bld)on 84-98-9228Yrnehcakdhq/100 WBC (Bld)2.4 %0.9-7.0 Erythrocyte distribution width Auto (RBC) [Ratio]on 25-40-5158Vtftymesrtk distribution width (RBC) [Ratio]13.2 %11.0-15.0 Estimated glomerular filtration rate (GFR) non- Americanon 05-01-0859FRY/1.73 sq M.predicted among non-blacks MDRD (S/P/Bld) [Vol rate/Area]mL/min/{1.73_m2}>=60 Globulin Calc (S) [Mass/Vol]on 73-75-3047Wpeqaqsj (S) [Mass/Vol]3.5 g/dL Glucose mean value [Mass/volume] in Blood Estimated from glycated hemoglobinon 75-84-1078Afxqzcg glucose Estimated from glycated hemoglobin (Bld) [Mass/Vol]94 mg/dL Hematocrit Auto (Bld) [Volume fraction]on 83-27-8321Blhfobucga (Bld) [Volume fraction]41.5 %36.0-48.0Hemoglobin [Mass/volume] in Bloodon 32-92-5537Owxadwtgul (Bld) [Mass/Vol]13.4 g/dL12.0-16.0 Laboratory - Chemistry and Chemistry - challengeon 45-97-1485Tmjypvp [Mass/Vol]3.9 g/dL3.4-5.0ALP [Catalytic activity/Vol]101 U/R95-822KwednzoilALT [Catalytic activity/Vol]29 U/T47-61XapkzizxxAST [Catalytic activity/Vol]19 U/C87-36Pjbypngtc Bilirubin [Mass/Vol]0.5 mg/dL0.2-1.0Calcium [Mass/Vol]9.5 mg/dL8.5-10.1FMcKitrick HospitalChloride [Moles/Vol] 105 mmol/P52-633BluuovozvCholesterol [Mass/Vol]250 mg/dL High<=200Cholesterol in HDL [Mass/Vol]43 mg/dL 40-60Comment on above:> or =60 mg/dl - LOW CARDIOVASCULAR RISK<40 mg/dl - HIGH CARDIOVASCULAR RISKCO2 [Moles/Vol]28.5 mmol/L21.0-32.0Creatinine [Mass/Vol]0.57 mg/dL 0.55-1.02GFR/1.73 sq M.predicted MDRD (S/P/Bld) [Vol rate/Area]mL/min/{1.73_m2}>=60Glucose [Mass/Vol]100 mg/iW99-273PmeekvkzaPotassium [Moles/Vol] 4.0 mmol/L3.5-5.1FMcKitrick HospitalProtein [Mass/Vol]7.4 g/dL 6.4-8.2FParkwood Hospitalodium [Moles/Vol]142 mmol/I453-990 Triglyceride [Mass/Vol]140 mg/dL<=150TSH Qn1.818 m[IU]/L0.358-3.740Urea nitrogen [Mass/Vol]16.0 mg/dL7.0-18.0Urea nitrogen/Creatinine [Mass ratio]28.1 mg/mgLaboratory - Hematology and Cell countson 69-60-0381OtC0e (Bld) [Mass fraction]4.9 %4.5-6.2FMcKitrick HospitalComment on above:ADA RECOMMENDED LIMIT 4.0 - 6.0ADA THERAPEUTIC TARGET < 7.0ACTION SUGGESTED> 7.0 Immature granulocytes/100 WBC (Bld)0.2 %0.0-0.5FMcKitrick Hospital Leukocytes [#/volume] corrected for nucleated erythrocytes in Blood by Automated counon 58-63-2787PLR corrected for nucl RBC Auto (Bld) [#/Vol]4.6 10 3/uL 4.0-11.0Lymphocytes Auto (Bld) [#/Vol]on 33-15-6060Jrerapdlioy (Bld) [#/Vol]2.1 10 3/uL1.2-3.8Lymphocytes/100 WBC Auto (Bld)on 90-82-0943Qqgjamdjfmm/100 WBC (Bld)44.7 % 20.5-60.0[facility] HospitalH Auto (RBC) [Entitic mass]on 13-06-8353JQY (RBC) [Entitic mass]31.5 pg26.7-34.0MCHC Auto (RBC) [Mass/Vol]on 09-56-4165KSCH (RBC) [Mass/Vol]32.3 g/dL 29.9-35.2FMcKitrick HospitalMCV Auto (RBC) [Entitic vol]on 13-29-3093ZRK (RBC) [Entitic vol]97.4 fL81.0-99.0Monocytes Auto (Bld) [#/Vol]on 68-47-1800Qiluhsqaa (Bld) [#/Vol]0.4 10 3/uL0.3-0.8Monocytes/100 WBC Auto (Bld)on 57-54-1003Usvmfgqce/100 WBC (Bld)8.5 %1.7-12.0 Neutrophils Auto (Bld) [#/Vol]on 98-64-4012Vgzoxzapjuh (Bld) [#/Vol]2.0 10 3/uL 1.4-6.5FMcKitrick HospitalNeutrophils/100 WBC Auto (Bld)on 33-56-1491Ohxwwwudrty/100 WBC (Bld)43.3 %43.0-75.0No Panel Informationon 45-08-0492Zkpjdiqazqw # (Auto)0.1 10 3/uL0.0-0.7 Immature Granulocyte # (Auto)0.01 10 3/uL 0.00-0.03Platelet mean volume Auto (Bld) [Entitic vol]on 65-72-0689Iaaufqbj mean volume (Bld) [Entitic vol]11.4 fL 9.5-13.5FMcKitrick HospitalPlatelets Auto (Bld) [#/Vol]on 96-36-5561Jinbvuvki (Bld) [#/Vol]210 10 3/zA103-317LyjpzwzxlRBC Auto (Bld) [#/Vol]on 76-09-3978ODF (Bld) [#/Vol]4.26 10 6/uL4.20-5.40 [facility] Centererum or plasma albumin/globulin mass ratioon 91-85-4620Icukztz/Globulin [Mass ratio]1.1 {ratio}[facility] Centererum or plasma anion gap determinationon 41-64-2439Syxiy gap [Moles/Vol] 12.5 mmol/LFParkwood Hospitalerum or plasma total cholesterol/high density lipoprotein (HDL) cholesterol mass johan 11-26-2023 Cholesterol.total/Cholesterol in HDL [Mass ratio]5.8 {ratio}Comment on above:3.3 - 4.4 LOW RISK4.4 - 7.1 AVERAGE RISK7.1 - 11.0 MODERATE RISK>11.0 HIGH RISKBasophils Auto (Bld) [#/Vol]on 09-18-2023 Basophils (Bld) [#/Vol]0.1 10 3/uL0.0-0.1FMcKitrick Hospital Basophils/100 WBC Auto (Bld)on 14-58-5521Pflgocndu/100 WBC (Bld)1.1 %0.2-2.0 Eosinophils/100 WBC Auto (Bld)on 09-18-2023 Eosinophils/100 WBC (Bld)2.2 %0.9-7.0 Erythrocyte distribution width Auto (RBC) [Ratio]on 27-71-1625Tinbdaqusaq distribution width (RBC) [Ratio]12.2 %11.0-15.0 Estimated glomerular filtration rate (GFR) non- Americanon 09-18-2023 GFR/1.73 sq M.predicted among non-blacks MDRD (S/P/Bld) [Vol rate/Area] mL/min/{1.73_m2}>=60Globulin Calc (S) [Mass/Vol]on 33-42-7195Dkhapvuw (S) [Mass/Vol]3.3 g/dLHematocrit Auto (Bld) [Volume fraction]on 24-63-7149Xagiqypefx (Bld) [Volume fraction]42.5 %36.0-48.0Hemoglobin [Mass/volume] in Bloodon 98-40-3838Gxatpbqpkx (Bld) [Mass/Vol]13.5 g/dL12.0-16.0 Laboratory - Chemistry and Chemistry - challengeon 05-52-4940Hmpjxqs [Mass/Vol]3.8 g/dL3.4-5.0ALP [Catalytic activity/Vol]89 U/K86-054QbmmzvgqvALT [Catalytic activity/Vol]26 U/X28-23Betgxydks AST [Catalytic activity/Vol]19 U/Q40-50Xbmfvccio Bilirubin [Mass/Vol]0.4 mg/dL0.2-1.0Calcium [Mass/Vol]8.9 mg/dL8.5-10.1FMcKitrick HospitalChloride [Moles/Vol] 105 mmol/V76-336VdbzywjskCO2 [Moles/Vol]29.0 mmol/L 21.0-32.0Creatinine [Mass/Vol]0.71 mg/dL 0.55-1.02GFR/1.73 sq M.predicted MDRD (S/P/Bld) [Vol rate/Area]mL/min/{1.73_m2}>=60Glucose [Mass/Vol]84 mg/iJ41-123YbozekoplPotassium [Moles/Vol] 4.2 mmol/L3.5-5.1FMcKitrick HospitalProtein [Mass/Vol]7.1 g/dL 6.4-8.2FParkwood Hospitalodium [Moles/Vol]142 mmol/U229-513 Urea nitrogen [Mass/Vol]13.0 mg/dL7.0-18.0 Urea nitrogen/Creatinine [Mass ratio]18.3 mg/mg Laboratory - Hematology and Cell countson 94-47-6336Aagszlcs granulocytes/100 WBC (Bld)0.2 %0.0-0.5FMcKitrick HospitalLeukocytes [#/volume] corrected for nucleated erythrocytes in Blood by Automated counon 84-00-4432BNZ corrected for nucl RBC Auto (Bld) [#/Vol]4.6 10 3/uL4.0-11.0Lymphocytes Auto (Bld) [#/Vol]on 31-85-4415Khpoypjncnc (Bld) [#/Vol]2.6 10 3/uL1.2-3.8Lymphocytes/100 WBC Auto (Bld)on 09-18-2023 Lymphocytes/100 WBC (Bld)56.8 %20.5-60.0MCH Auto (RBC) [Entitic mass]on 29-70-9590SFH (RBC) [Entitic mass]31.5 pg26.7-34.0 MCHC Auto (RBC) [Mass/Vol]on 54-90-1280AKKB (RBC) [Mass/Vol]31.8 g/dL29.9-35.2FMcKitrick HospitalMCV Auto (RBC) [Entitic vol]on 73-51-1700XMC (RBC) [Entitic vol]99.1 fL81.0-99.0Monocytes Auto (Bld) [#/Vol]on 05-56-7937Qvulktbbp (Bld) [#/Vol]0.4 10 3/uL0.3-0.8Monocytes/100 WBC Auto (Bld)on 39-31-9464Lndejahud/100 WBC (Bld)8.2 %1.7-12.0Neutrophils Auto (Bld) [#/Vol]on 09-31-8556Jjstkyazvlf (Bld) [#/Vol]1.5 10 3/uL1.4-6.5FMcKitrick HospitalNeutrophils/100 WBC Auto (Bld)on 98-86-7039Fyclkigzvyr/100 WBC (Bld)31.5 %43.0-75.0No Panel Informationon 91-83-2142Srmqwvdydgu # (Auto)0.1 10 3/uL0.0-0.7FMcKitrick HospitalImmature Granulocyte # (Auto)0.01 10 3/uL0.00-0.03Platelet mean volume Auto (Bld) [Entitic vol]on 07-10-4471Dwvzlqlg mean volume (Bld) [Entitic vol]11.1 fL 9.5-13.5FMcKitrick HospitalPlatelets Auto (Bld) [#/Vol]on 18-33-3025Ukawayozj (Bld) [#/Vol]196 10 3/nB341-832IfyvjkfzgRBC Auto (Bld) [#/Vol]on 83-11-2755QZC (Bld) [#/Vol]4.29 10 6/uL4.20-5.40 [facility] Centererum or plasma albumin/globulin mass ratioon 83-31-9770Stroeez/Globulin [Mass ratio]1.2 {ratio}[facility] Centererum or plasma anion gap determinationon 60-76-1449Ctcox gap [Moles/Vol] 12.2 mmol/LFMcKitrick HospitalAlanine aminotransferase [Enzymatic activity/volume] in Serum or PlasmaOrdered By: Isaías Jordan on 03-20-2023 ALT [Catalytic activity/Vol]16 U/L7-52ALT [Catalytic activity/Vol]Alanine aminotransferase [Enzymatic activity/volume] in Serum or Plasma752Albumin [Mass/volume] in Serum or Plasma by Bromocresol green (BCG) dye binding methoOrdered By: Isaías Jordan on 06-69-5636Todnvdo BCG dye [Mass/Vol]4.4 g/dL3.5-5.7FMcKitrick HospitalAlbumin BCG dye [Mass/Vol]Albumin [Mass/volume] in Serum or Plasma by Bromocresol green (BCG) dye binding metho3.5-5.7FMcKitrick HospitalAlkaline phosphatase [Enzymatic activity/volume] in Serum or PlasmaOrdered By: Isaías Jordan on 41-21-1614OCS [Catalytic activity/Vol]88 U/R15-211XxurbfyscALP [Catalytic activity/Vol]Alkaline phosphatase [Enzymatic activity/volume] in Serum or Uyqwqe99-777YxbcrnhzeAspartate aminotransferase [Enzymatic activity/volume] in Serum or PlasmaOrdered By: Isaías Jordan on 01-22-6566NDQ [Catalytic activity/Vol]21 U/Z60-14GqvlybjduAST [Catalytic activity/Vol]Aspartate aminotransferase [Enzymatic activity/volume] in Serum or Oornag89-68KpsoibvthBasophils Auto (Bld) [#/Vol]Ordered By: Isaías Jordan on 09-33-0869Zxszzxuce (Bld) [#/Vol]0.1 10*3/uL0.0-0.2 Basophils (Bld) [#/Vol]Automated basophil count 0.0-0.2FMcKitrick HospitalBasophils/100 WBC Auto (Bld)Ordered By: Isaías Jordan on 21-75-5186Rqhzgvxtn/100 WBC (Bld)1.2 %.Basophils/100 WBC (Bld)Automated basophil %.Bilirubin.total [Mass/volume] in Serum or PlasmaOrdered By: Isaías Jordan on 34-02-0047Dhhpavkfe [Mass/Vol]0.8 mg/dL0.3-1.0Bilirubin [Mass/Vol]Bilirubin.total [Mass/volume] in Serum or Plasma0.3-1.0Calcium [Mass/volume] in Serum or PlasmaOrdered By: Isaías Jordan on 72-00-1712Zypdkld [Mass/Vol]10.3 mg/dL8.6-10.3FMcKitrick HospitalCalcium [Mass/Vol]Calcium [Mass/volume] in Serum or Plasma8.6-10.3FMcKitrick HospitalCarbon dioxide, total [Moles/volume] in Serum or PlasmaOrdered By: Isaías Jordan on 32-46-5567LE4 [Moles/Vol]27.3 mmol/L21.0-31.0 CO2 [Moles/Vol]Carbon dioxide, total [Moles/volume] in Serum or Bqgknv08.0-31.0 Chloride [Moles/volume] in Serum or Plasma Ordered By: Isaías Jordan on 98-62-6908Eyipstxy [Moles/Vol]105 mmol/L98-107 Chloride [Moles/Vol]Chloride [Moles/volume] in Serum or Mpybfm75-210MzbziqpxiCreatinine [Mass/volume] in Serum or PlasmaOrdered By: Isaías Jordan on 31-05-0653Jvfubexbdm [Mass/Vol]0.73 mg/dL0.60-1.20Creatinine [Mass/Vol]Creatinine [Mass/volume] in Serum or Plasma0.60-1.20Eosinophils Auto (Bld) [#/Vol]Ordered By: Isaías Jordan on 81-30-7588Ugvxpgmasii (Bld) [#/Vol]0.1 10*3/uL0.0-0.45Eosinophils (Bld) [#/Vol]Automated eosinophil count0.0-0.45Eosinophils/100 WBC Auto (Bld)Ordered By: Isaías Jordna on 70-78-5778Rqgmtprzbmx/100 WBC (Bld)2.8 %.Eosinophils/100 WBC (Bld)Automated eosinophil %.Erythrocyte distribution width Auto (RBC) [Ratio]Ordered By: Isaías Jordan on 99-22-4382Mkjkyiyzpbn distribution width (RBC) [Ratio]13.7 %11.9-15.3FMcKitrick HospitalErythrocyte distribution width (RBC) [Ratio]Erythrocyte distribution width [Ratio] by Automated count11.9-15.3 Globulin Calc (S) [Mass/Vol]Ordered By: Isaías Jordan on 79-19-3614Uytklzsg (S) [Mass/Vol]2.9 g/dLGlobulin (S) [Mass/Vol]Serum globulin measurement by calculation (mass/volume)Glucose [Mass/volume] in Serum or PlasmaOrdered By: Isaías Jordan on 60-83-0165Spblxsb [Mass/Vol]80 mg/dL 70-100Comment on above:ADA recommended reference rangeRandom Glucose Reference Range is dependent on time and content of last meal. Glucose of more than 200 mg/dL in a nonstressed, ambulatory subject supports the diagnosisof Diabetes Mellitus.Glucose [Mass/Vol]Glucose [Mass/volume] in Serum or Lfyurv81-088CvddphnhnComment on above:ADA recommended reference rangeRandom Glucose Reference Range is dependent on time and content of last meal. Glucose of more than 200 mg/dL in a nonstressed, ambulatory subject supports the diagnosisof Diabetes Mellitus. Hematocrit Auto (Bld) [Volume fraction]Ordered By: Isaías Jordan on 78-19-9161Cppldiwpxp (Bld) [Volume fraction]40.8 %34.0-46.4FMcKitrick HospitalHematocrit (Bld) [Volume fraction]Hematocrit [Volume Fraction] of Blood by Automated count34.0-46.4FMcKitrick HospitalHemoglobin [Mass/volume] in BloodOrdered By: Isaías Jordan on 92-45-4169Xvzcjbkzjz (Bld) [Mass/Vol]13.8 g/dL11.-15.4FMcKitrick HospitalHemoglobin (Bld) [Mass/Vol]Hemoglobin [Mass/volume] in Blood11.-15.4FMcKitrick HospitalLeukocytes [#/volume] corrected for nucleated erythrocytes in Blood by Automated counOrdered By: Isaías Jordan on 97-35-5430SCQ corrected for nucl RBC Auto (Bld) [#/Vol]5.1 10*3/uL3.8-11.6FMcKitrick HospitalWBC corrected for nucl RBC Auto (Bld) [#/Vol]Leukocytes [#/volume] corrected for nucleated erythrocytes in Blood by Automated coun3.8-11.6FMcKitrick HospitalLymphocytes Auto (Bld) [#/Vol]Ordered By: Isaías Jordan on 77-01-7627Mbsuogkkswd (Bld) [#/Vol]2.0 10*3/uL1.00-4.8Lymphocytes (Bld) [#/Vol]Lymphocytes [#/volume] in Blood by Automated count1.00-4.8Lymphocytes/100 WBC Auto (Bld)Ordered By: Isaías Jordan on 11-22-2508Zmrupocvzqy/100 WBC (Bld) 39.4 %.Lymphocytes/100 WBC (Bld)Lymphocytes/100 leukocytes in Blood by Automated count.[facility] Auto (RBC) [Entitic mass]Ordered By: Isaías Jordan on 39-29-8780PUE (RBC) [Entitic mass]32.3 pg24.7-34.3FCorey Hospital (RBC) [Entitic mass]MCH [Entitic mass] by Automated count24.7-34.3FKettering HealthHC Auto (RBC) [Mass/Vol]Ordered By: Isaías Jordan on 61-65-7926FWKN (RBC) [Mass/Vol]33.7 g/dL32.0-35.0MCHC (RBC) [Mass/Vol]MCHC [Mass/volume] by Automated count32.0-35.0 MCV Auto (RBC) [Entitic vol]Ordered By: Isaías Jordan on 63-59-7036REX (RBC) [Entitic vol]95.7 kT85-670YiudyszuzMCV (RBC) [Entitic vol]MCV [Entitic volume] by Automated count 80-100Monocytes Auto (Bld) [#/Vol]Ordered By: Isaías Jordan on 79-00-0157Xhchkjoev (Bld) [#/Vol]0.5 10*3/uL0.0-0.8 Monocytes (Bld) [#/Vol]Automated blood monocyte count0.0-0.8Monocytes/100 WBC Auto (Bld) Ordered By: Isaías Jordan on 25-67-4155Pyfdkigcu/100 WBC (Bld)9.0 %. Monocytes/100 WBC (Bld)Automated monocyte %. Neutrophils Auto (Bld) [#/Vol]Ordered By: Isaías Jordan on 52-76-7676Vqfxrnxulhf (Bld) [#/Vol]2.4 10*3/uL1.8-7.7 Neutrophils (Bld) [#/Vol]Neutrophils [#/volume] in Blood by Automated count1.8-7.7FMcKitrick Hospital Neutrophils/100 WBC Auto (Bld)Ordered By: Isaías Jordan on 03-20-2023 Neutrophils/100 WBC (Bld)47.6 %.Neutrophils/100 WBC (Bld)Automated neutrophil %.No Panel InformationOrdered By: Isaías Jordan on 99-71-5239Ddalmlldg GFR (CKD-EPI)> 60.0 mL/MinPharmacy Creatinine Clearance (Chem 86.44Nucleated erythrocytes [Presence] in Blood by Automated countOrdered By: Isaías Jordan on 69-30-5704Qbembybnw RBC Auto Ql (Bld)0.1 /100{WBC}0-0.5FMcKitrick HospitalNucleated RBC Auto Ql (Bld)Nucleated erythrocytes [Presence] in Blood by Automated count0-0.5 Platelet mean volume Auto (Bld) [Entitic vol] Ordered By: Isaías Jordan on 67-62-7487Xafqkahq mean volume (Bld) [Entitic vol]8.9 fL6.3-10.7FMcKitrick HospitalPlatelet mean volume (Bld) [Entitic vol]Platelet mean volume [Entitic volume] in Blood by Automated count 6.3-10.7FMcKitrick HospitalPlatelets Auto (Bld) [#/Vol]Ordered By: Isaías Jordan on 03-93-9789Evfxxcahr (Bld) [#/Vol]198 10*3/kR268-579 Platelets (Bld) [#/Vol]Platelets [#/volume] in Blood by Automated zkqga749-211DghrnsfchPotassium [Moles/volume] in Serum or PlasmaOrdered By: Isaías Jordan on 03-20-2023 Potassium [Moles/Vol]4.3 mmol/L3.5-5.1FMcKitrick HospitalPotassium [Moles/Vol]Potassium [Moles/volume] in Serum or Plasma3.5-5.1FMcKitrick HospitalProtein [Mass/volume] in Serum or PlasmaOrdered By: Isaías Jordan on 81-77-4051Qvhyymw [Mass/Vol]7.3 g/dL6.4-8.9Protein [Mass/Vol]Protein [Mass/volume] in Serum or Plasma6.4-8.9 RBC Auto (Bld) [#/Vol]Ordered By: Isaías Joradn on 26-43-2732RLA (Bld) [#/Vol]4.26 10*6/uL3.60-5.00RBC (Bld) [#/Vol]Erythrocytes [#/volume] in Blood by Automated count3.60-5.00[facility] Centererum or plasma albumin/globulin mass ratioOrdered By: Isaías Jordan on 63-13-9697Kqoqrxh/Globulin [Mass ratio]1.5 {ratio}Albumin/Globulin [Mass ratio] Serum or plasma albumin/globulin mass ratio Serum or plasma anion gap determinationOrdered By: Isaías Jordan on 02-53-8809Kgheo gap [Moles/Vol]11.0 mmol/L6.0-15.0Anion gap [Moles/Vol]Serum or plasma anion gap determination6.0-15.0 [facility] Centererum or plasma carcinoembryonic antigen measurement (mass/volume)Ordered By: Isaías Jordan on 03-20-2023 Carcinoembryonic Ag [Mass/Vol]3.3 ng/mLHigh0.0-3.0Carcinoembryonic Ag [Mass/Vol]Serum or plasma carcinoembryonic antigen measurement (mass/volume)High0.0-3.0[facility] Centerodium [Moles/volume] in Serum or PlasmaOrdered By: Isaías Jordan on 03-20-2023 Sodium [Moles/Vol]139 mmol/L958-974GshhgipqhUniversity Hospitals Ahuja Medical Centerodium [Moles/Vol]Sodium [Moles/volume] in Serum or Xtxqsg121-032AxkuawikpUrea nitrogen [Mass/volume] in Serum or PlasmaOrdered By: Isaías Jordan on 51-01-7273Zqwe nitrogen [Mass/Vol]16 mg/dL7-Urea nitrogen [Mass/Vol]Urea nitrogen [Mass/volume] in Serum or Plasma7WBC Auto (Bld) [#/Vol]Ordered By: Isaías Jordan on 46-26-4871COX (Bld) [#/Vol]5.1 10*3/uL3.8-11.6FMcKitrick HospitalWBC (Bld) [#/Vol]Leukocytes [#/volume] in Blood by Automated count3.8-11.6FMcKitrick HospitalCBC AUTO DIFFon 12-98-5554MQOJ #0.0 103/ulNormal0.0-0.1The [facility] CenterComment on above: Performed By: #### CBC #### [facility] [address] [place] [address] Dr. Doreen BetancourtBasophils/100 WBC (Bld)0.6 %Normal0.2-2.0[facility] Comment on above:Performed By: #### CBC #### [facility] [address] [address] [address] Doreen Everett #0.0 103/ulNormal0.0-0.7The [facility] CenterComment on above: Performed By: #### CBC #### [facility] [address] [place] [address] Dr. Doreen Gregoryosinophils/100 WBC (Bld)0.6 %Critically low0.9-7.0The [facility] CenterComment on above:Performed By: #### CBC #### [facility] [address] [place] [address] Dr. Doreen Gregoryrythrocyte distribution width (RBC) [Ratio]13.7 %Gdfbzm51.0-15.0 [facility] CenterComment on above:Performed By: #### CBC #### [facility] [address] [place] [address] Dr. Doreen BetancourtHematocrit (Bld) [Volume fraction]41.0 %Jicgji81.0-48.0The [facility] Medical CenterComment on above:Performed By: #### CBC #### [facility] [address] [place] [address] Dr. Doreen BetancourtHemoglobin (Bld) [Mass/Vol]13.1 g/lCHwgeil11.0-16.0The [facility] CenterComment on above:Performed By: #### CBC #### [facility] [address] [place] [address] Dr. Doreen Shepherd #0.00 10e3/ulNormal0.00-0.03The [facility] CenterComment on above:Performed By: #### CBC #### [facility] [address] [address] [address] Doreen Shepherd %0.0 %Normal0.0-0.5The [facility] on above: Performed By: #### CBC #### [facility] [address] [address] [address] Doreen Kaiser #2.0 103/ulNormal1.2-3.8The [facility] CenterComment on above:Performed By: #### CBC #### [facility] [address] [place] [address] Dr. Doreen Camachohocytes/100 WBC (Bld)55.3 %Ykybwq92.5-60.0[facility] on above:Performed By: #### CBC #### [facility] [address] [place] [address] Dr. Doreen DixonUAL DIFF REQNONormalThe [facility] CenterComment on above: Performed By: #### CBC #### [facility] [address] [place] [address] Dr. Doreen Stearns (RBC) [Entitic mass]33.2 acGrqnmt95.7-34.0[facility] on above:Performed By: #### CBC #### [facility] [address] [place] [address] Dr. Doreen Stearns (RBC) [Mass/Vol]32.0 g/jLKetfak14.9-35.2The [facility] on above:Performed By: #### CBC #### [facility] [address] [place] [address] Dr. Doreen Stearns (RBC) [Entitic vol]104.1 fLCritically high81.0-99.0[facility] on above:Performed By: #### CBC #### [facility] [address] [place] [address] Dr. Doreen Cheema #0.7 103/ulNormal0.3-0.8The [facility] CenterComment on above:Performed By: #### CBC #### [facility] [address] [address] [address] Doreen BetancourtMonocytes/100 WBC (Bld)18.7 %Critically high1.7-12.0[facility] on above:Performed By: #### CBC #### [facility] [address] [address] [address] Doreen WrenUT #0.9 103/ulCritically low1.4-6.5The [facility] CenterComment on above:Performed By: #### CBC #### [facility] [address] [place] [address] Dr. Doreen Wrenutrophils/100 WBC (Bld)24.8 %Critically low43.0-75.0The [facility] CenterComment on above:Performed By: #### CBC #### [facility] [address] [place] [address] Dr. Doreen BetancourtPlatelet mean volume (Bld) [Entitic vol]10.5 fLNormal9.5-13.5The [facility] CenterComment on above:Performed By: #### CBC #### [facility] [address] [place] [address] Dr. Doreen BeatncourtPLT121 103/ulCritically mgs662-482Zsp [facility] CenterComhenry [facility] on above:Performed By: #### CBC #### [facility] [address] [place] [address] Dr. Doreen BetancourtRBC3.94 106/ulCritically low4.20-5.40The [facility] on above:Performed By: #### CBC #### [facility] [address] [place] [address] Dr. Doreen BetancourtWBC3.6 103/ulCritically low4.0-11.0The [facility] on above:Performed By: #### CBC #### [facility] [address] [place] [address] Dr. Doreen BetancourtMAGNESIUMon 52-84-7804Mwishduvi [Mass/Vol]2.0 mg/dLNormal1.8-2.4 The [facility] HospitalComment on above:Performed By: #### MG, CMP #### [facility] [address] [address] [address] Doreen Silva 14(COMP METB)on 75-54-1194Kzkmcyp [Mass/Vol]3.7 g/dLNormal 3.4-5.0The [facility] CenterComment on above:Performed By: #### MG, CMP #### [facility] [address] [place] [address] Dr. Doreen BetancourtAlbumin/Globulin [Mass ratio]1.0 {ratio}NormalThe [facility] CenterComment on above:Performed By: #### MG, CMP #### [facility] [address] [place] [address] Dr. Doreen Lopez [Catalytic activity/Vol]161 U/LCritically gouf85-734Iwe [facility] CenterComment on above:Performed By: #### MG, CMP #### [facility] [address] [place] [address] Dr. Doreen Friend [Catalytic activity/Vol]49 U/EJzonvm60-44Xln [facility] CenterComment on above:Performed By: #### MG, CMP #### [facility] [address] [place] [address] Dr. Doreen Cifuentes gap [Moles/Vol]9.8 mmol/LNormalThe [facility] CenterComment on above:Performed By: #### MG, CMP #### [facility] [address] [place] [address] [Catalytic activity/Vol]44 U/LCritically lxde19-04Lxi [facility] CenterComment on above:Performed By: #### MG, CMP #### [facility] [address] [place] [address] Dr. Doreen BetancourtBilirubin [Mass/Vol]0.4 mg/dLNormal0.2-1.0The [facility] Comment on above:Performed By: #### MG, CMP #### [facility] [address] [place] [address] Dr. Doreen BetancourtCalcium [Mass/Vol]9.6 mg/dLNormal8.5-10.1The [facility] Comment on above:Performed By: #### MG, CMP #### [facility] [address] [place] [address] Dr. Doreen BetancourtChloride [Moles/Vol]106 mmol/RTncrei07-586Vxk [facility] Comment on above:Performed By: #### MG, CMP #### [facility] [address] [place] [address] Dr. Doreen BetancourtCO2 [Moles/Vol]30.1 mmol/LCiapvu57.0-32.0The [facility] Comment on above:Performed By: #### MG, CMP #### [facility] [address] [place] [address] Dr. Doreen BetancourtCreatinine [Mass/Vol]0.68 mg/dLNormal0.55-1.02The [facility] CenterComment on above:Performed By: #### MG, CMP #### [facility] [address] [place] [address] Dr. Doreen GregoryGFR-AF NORTH KOREAN>60Normal>=60The [facility] CenterComment on above:Performed By: #### MG, CMP #### [facility] [address] [place] [address] Dr. Doreen GregoryGFR-NON AF [place]ORE[place]>60Normal>=60The [facility] CenterComment on above:Performed By: #### MG, CMP #### [facility] [address] [place] [address] Dr. Doreen BetancourtGlobulin (S) [Mass/Vol]3.7 g/dLNormalThe [facility] CenterComment on above:Performed By: #### MG, CMP #### [facility] [address] [place] [address] Dr. Doreen BetancourtGlucose [Mass/Vol]107 mg/dLCritically lpxz00-026Kuj [facility] CenterComment on above:Performed By: #### MG, CMP #### [facility] [address] [place] [address] Dr. Doreen BetancourtPotassium [Moles/Vol]4.9 mmol/LNormal3.5-5.1The [facility] Comment on above:Performed By: #### MG, CMP #### [facility] [address] [place] [address] Dr. Doreen BetancourtProtein [Mass/Vol]7.4 g/dLNormal6.4-8.2The [facility] Comment on above:Performed By: #### MG, CMP #### [facility] [address] [place] [address] Dr. Doreen Maderadium [Moles/Vol]141 mmol/PFivhtj900-582GbvNationwide Children'S Hospital Comment on above:Performed By: #### MG, CMP #### [facility] [address] [place] [address] Dr. Doreen BetancourtUrea nitrogen [Mass/Vol]11.0 mg/dLNormal7.0-18.0The [facility] CenterComment on above:Performed By: #### MG, CMP #### [facility] [address] [place] [address] Dr. Doreen Copeland nitrogen/Creatinine [Mass ratio]16.2 mg/mgNormalThe [facility] CenterComment on above:Performed By: #### MG, CMP #### [facility] [address] [place] [address] Dr. Doreen Keller AUTO DIFFon 50-87-7189TJCZ #0.0 103/ulNormal0.0-0.1The [facility] CenterComment on above:Performed By: #### MG, CMP #### [facility] [address] [place] [address] Dr. Doreen BetancourtBasophils/100 WBC (Bld)0.5 %Normal0.2-2.0The [facility] Comment on above:Performed By: #### MG, CMP #### [facility] [address] [place] [address] Dr. Doreen Everett #0.0 103/ulNormal0.0-0.7The [facility] CenterComment on above: Performed By: #### MG, CMP #### [facility] [address] [place] [address] Dr. Doreen Gregoryosinophils/100 WBC (Bld)0.8 %Critically low0.9-7.0The [facility] Centerment on above:Performed By: #### MG, CMP #### [facility] [address] [place] [address] Dr. Doreen Gregoryrythrocyte distribution width (RBC) [Ratio]13.2 %Sxeeeq54.0-15.0 The [facility] CenterComment on above:Performed By: #### MG, CMP #### [facility] [address] [place] [address] Dr. Doreen BetancourtHematocrit (Bld) [Volume fraction]40.7 %Hkyhzm94.0-48.0The [facility] CenterComment on above:Performed By: #### MG, CMP #### [facility] [address] [place] [address] Dr. Doreen BetancourtHemoglobin (Bld) [Mass/Vol]13.5 g/hBOyjtmc95.0-16.0The [facility] CenterComment on above:Performed By: #### MG, CMP #### [facility] [address] [place] [address] Dr. Doreen Shepherd #0.00 10e3/ulNormal0.00-0.03The [facility] CenterComment on above:Performed By: #### MG, CMP #### [facility] [address] [place] [address] Dr. Doreen Shepherd %0.0 %Normal0.0-0.5The [facility] CenterComhenry [facility] on above: Performed By: #### MG, CMP #### [facility] [address] [place] [address] Dr. Doreen CamachoH #1.9 103/ulNormal1.2-3.8The [facility] Centerment on above:Performed By: #### MG, CMP #### [facility] [address] [place] [address] Dr. Doreen Nunezmphocytes/100 WBC (Bld)51.8 %Itgydf21.5-60.0The [facility] HospitalComment on above:Performed By: #### MG, CMP #### [facility] [address] [place] [address] Dr. Doreen Yusuf DIFF REQNONormalThe [facility] CenterComment on above: Performed By: #### MG, CMP #### [facility] [address] [place] [address] Dr. Doreen Stearns (RBC) [Entitic mass]34.3 pgCritically high26.7-34.0The [facility] HospitalComment on above:Performed By: #### MG, CMP #### [facility] [address] [place] [address] Dr. Doreen Stearns (RBC) [Mass/Vol]33.2 g/vRMfrvbs09.9-35.2The [facility] CenterComment on above:Performed By: #### MG, CMP #### [facility] [address] [place] [address] Dr. Doreen Alejo (RBC) [Entitic vol]103.3 fLCritically high81.0-99.0The [facility] CenterComment on above:Performed By: #### MG, CMP #### [facility] [address] [place] [address] Dr. Doreen Cheema #0.5 103/ulNormal0.3-0.8The [facility] CenterComment on above:Performed By: #### MG, CMP #### [facility] [address] [place] [address] Dr. Doreen Ruizocytes/100 WBC (Bld)13.9 %Critically high1.7-12.0The [facility] CenterComment on above:Performed By: #### MG, CMP #### [facility] [address] [place] [address] Dr. Doreen Brar #1.2 103/ulCritically low1.4-6.5The [facility] CenterComment on above:Performed By: #### MG, CMP #### [facility] [address] [place] [address] Dr. Doreen BetancourtNeutrophils/100 WBC (Bld)33.0 %Critically low43.0-75.0The [facility] CenterComhenry [facility] on above:Performed By: #### MG, CMP #### [facility] [address] [place] [address] Dr. Doreen BetancourtPlatelet mean volume (Bld) [Entitic vol]10.0 fLNormal9.5-13.5The [facility] CenterComment on above:Performed By: #### MG, CMP #### [facility] [address] [place] [address] Dr. Doreen BetancourtPLT129 103/ulCritically fzc564-627Tqn [facility] CenterComhenry [facility] on above:Performed By: #### MG, CMP #### [facility] [address] [place] [address] Dr. Doreen BetancourtRBC3.94 106/ulCritically low4.20-5.40The [facility] CenterComment on above:Performed By: #### MG, CMP #### [facility] [address] [place] [address] Dr. Doreen BetancourtWBC3.7 103/ulCritically low4.0-11.0The [facility] on above:Performed By: #### MG, CMP #### [facility] [address] [place] [address] Dr. Doreen BetancourtMAGNESIUMon 59-94-3710Pjqvgxhtp [Mass/Vol]2.0 mg/dLNormal1.8-2.4 The [facility] CenterComment on above:Performed By: #### MG, CMP #### [facility] [address] [place] [address] Dr. Doreen BestF 14(COMP METB)on 31-68-2612Fgkufwy [Mass/Vol]3.7 g/dLNormal 3.4-5.0The [facility] CenterComment on above:Performed By: #### MG, CMP #### [facility] [address] [place] [address] Dr. Doreen BetancourtAlbumin/Globulin [Mass ratio]1.0 {ratio}NormalThe [facility] CenterComment on above:Performed By: #### MG, CMP #### [facility] [address] [address] [address] Doreen CarolinaP [Catalytic activity/Vol]133 U/LCritically lerx34-404Ctz [facility] CenterComment on above:Performed By: #### MG, CMP #### [facility] [address] [address] [address] Doreen Friend [Catalytic activity/Vol]47 U/WJbnlgd97-30Vva [facility] CenterComment on above:Performed By: #### MG, CMP #### [facility] [address] [place] [address] Dr. Doreen Cifuentes gap [Moles/Vol]10.8 mmol/LNormalThe [facility] Comment on above:Performed By: #### MG, CMP #### [facility] [address] [place] [address] Dr. Doreen BetancourtAST [Catalytic activity/Vol]39 U/LCritically cxmm81-20Fsx [facility] CenterComment on above:Performed By: #### MG, CMP #### [facility] [address] [place] [address] Dr. Doreen BetancourtBilirubin [Mass/Vol]0.5 mg/dLNormal0.2-1.0The [facility] Comment on above:Performed By: #### MG, CMP #### [facility] [address] [place] [address] Dr. Doreen BetancourtCalcium [Mass/Vol]9.4 mg/dLNormal8.5-10.1[facility] Comment on above:Performed By: #### MG, CMP #### [facility] [address] [place] [address] Dr. Doreen BetancourtChloride [Moles/Vol]107 mmol/TYstiap41-276Aom [facility] Comment on above:Performed By: #### MG, CMP #### [facility] [address] [place] [address] Dr. Doreen BetancourtCO2 [Moles/Vol]27.7 mmol/GKqxqkd64.0-32.0The [facility] Comment on above:Performed By: #### MG, CMP #### [facility] [address] [place] [address] Dr. Doreen BetancourtCreatinine [Mass/Vol]0.70 mg/dLNormal0.55-1.02The [facility] CenterComment on above:Performed By: #### MG, CMP #### [facility] [address] [address] [address] Doreen GregoryGFR-AF NORTH KOREAN>60Normal>=60The [facility] CenterComment on above:Performed By: #### MG, CMP #### [facility] [address] [place] [address] Dr. Doreen GregoryGFR-NON AF [place]ORE[place]>60Normal>=60The [facility] CenterComment on above:Performed By: #### MG, CMP #### [facility] [address] [place] [address] Dr. Doreen BetancourtGlobulin (S) [Mass/Vol]3.7 g/dLNormalThe [facility] CenterComment on above:Performed By: #### MG, CMP #### [facility] [address] [place] [address] Dr. Doreen BetancourtGlucose [Mass/Vol]99 mg/sWEpvmht58-593WprNationwide Children'S Hospital Comment on above:Performed By: #### MG, CMP #### [facility] [address] [place] [address] Dr. Doreen BetancourtPotassium [Moles/Vol]4.5 mmol/LNormal3.5-5.1The [facility] Comment on above:Performed By: #### MG, CMP #### [facility] [address] [place] [address] Dr. Doreen BetancourtProtein [Mass/Vol]7.4 g/dLNormal6.4-8.2The [facility] Comment on above:Performed By: #### MG, CMP #### [facility] [address] [place] [address] Dr. Doreen Maderadium [Moles/Vol]141 mmol/RZbbmgd462-125Vty [facility] Comment on above:Performed By: #### MG, CMP #### [facility] [address] [place] [address] Dr. Doreen Copeland nitrogen [Mass/Vol]13.0 mg/dLNormal7.0-18.0The [facility] CenterComment on above:Performed By: #### MG, CMP #### [facility] [address] [place] [address] Dr. Doreen Copeland nitrogen/Creatinine [Mass ratio]18.6 mg/mgNormalThe [facility] CenterComment on above:Performed By: #### MG, CMP #### [facility] [address] [place] [address] Dr. Doreen Keller AUTO DIFFon 34-96-8898ONGJ #0.1 103/ulNormal0.0-0.1The [facility] CenterComment on above:Performed By: #### CBC #### [facility] [address] [place] [address] Dr. Doreen BetancourtBasophils/100 WBC (Bld)1.0 %Normal0.2-2.0[facility] Comment on above:Performed By: #### CBC #### [facility] [address] [place] [address] Dr. Doreen Everett #0.0 103/ulNormal0.0-0.7The [facility] CenterComment on above: Performed By: #### CBC #### [facility] [address] [place] [address] Dr. Doreen Gregoryosinophils/100 WBC (Bld)0.8 %Critically low0.9-7.0The [facility] CenterComment on above:Performed By: #### CBC #### [facility] [address] [place] [address] Dr. Doreen Gregoryrythrocyte distribution width (RBC) [Ratio]13.2 %Hmxavr85.0-15.0 The [facility] CenterComment on above:Performed By: #### CBC #### [facility] [address] [place] [address] Dr. Doreen BetancourtHematocrit (Bld) [Volume fraction]40.3 %Fylbnl06.0-48.0The [facility] CenterComment on above:Performed By: #### CBC #### [facility] [address] [place] [address] Dr. Doreen BetancourtHemoglobin (Bld) [Mass/Vol]13.3 g/cBEnjaff21.0-16.0The [facility] HospitalComment on above:Performed By: #### CBC #### [facility] [address] [place] [address] Dr. Doreen Shepherd #0.02 10e3/ulNormal0.00-0.03The [facility] CenterComment on above:Performed By: #### CBC #### [facility] [address] [place] [address] Dr. Doreen Shepherd %0.4 %Normal0.0-0.5The [facility] CenterComment on above: Performed By: #### CBC #### [facility] [address] [place] [address] Dr. Doreen Kaiser #1.8 103/ulNormal1.2-3.8The [facility] CenterComment on above:Performed By: #### CBC #### [facility] [address] [place] [address] Dr. Doreen Nunezmphocytes/100 WBC (Bld)36.8 %Ssfwsc56.5-60.0The [facility] CenterComment on above:Performed By: #### CBC #### [facility] [address] [place] [address] Dr. Doreen DixonUAL DIFF REQNONormalThe [facility] CenterComment on above: Performed By: #### CBC #### [facility] [address] [place] [address] Dr. Doreen Tapia (RBC) [Entitic mass]33.8 vbVvksqo55.7-34.0The [facility] HospitalComment on above:Performed By: #### CBC #### [facility] [address] [address] [address] Doreen StearnsHC (RBC) [Mass/Vol]33.0 g/rHMrfikg94.9-35.2The [facility] CenterComment on above:Performed By: #### CBC #### [facility] [address] [place] [address] Dr. Doreen StearnsV (RBC) [Entitic vol]102.5 fLCritically high81.0-99.0The [facility] CenterComment on above:Performed By: #### CBC #### [facility] [address] [place] [address] Dr. Doreen Cheema #0.6 103/ulNormal0.3-0.8The [facility] CenterComment on above:Performed By: #### CBC #### [facility] [address] [place] [address] Dr. Doreen Ruizocytes/100 WBC (Bld)12.3 %Critically high1.7-12.0The [facility] CenterComment on above:Performed By: #### CBC #### [facility] [address] [place] [address] Dr. Doreen Brar #2.4 103/ulNormal1.4-6.5The [facility] CenterComhenry [facility] on above:Performed By: #### CBC #### [facility] [address] [place] [address] Dr. Doreen Wrenutrophils/100 WBC (Bld)48.7 %Sotvbi88.0-75.0The [facility] CenterComment on above:Performed By: #### CBC #### [facility] [address] [place] [address] Dr. Doreen Goldsteinlet mean volume (Bld) [Entitic vol]10.3 fLNormal9.5-13.5The [facility] CenterComment on above:Performed By: #### CBC #### [facility] [address] [place] [address] Dr. Doreen BetancourtPLT239 103/pvJxcfkb339-692Qto [facility] Centerment on above: Performed By: #### CBC #### [facility] [address] [place] [address] Dr. Doreen BetancourtRBC3.93 106/ulCritically low4.20-5.40The [facility] on above:Performed By: #### CBC #### [facility] [address] [place] [address] Dr. Doreen BetancourtWBC4.9 103/ulNormal4.0-11.0The [facility] CenterComment on above: Performed By: #### CBC #### [facility] [address] [place] [address] Dr. Doreen BetancourtMAGNESIUMon 25-39-5618Qvpqatomm [Mass/Vol]1.9 mg/dLNormal1.8-2.4 The [facility] CenterComment on above:Performed By: #### MG, CMP #### [facility] [address] [place] [address] Dr. Doreen BetancourtPROF 14(COMP METB)on 05-49-5054Cumvyca [Mass/Vol]3.5 g/dLNormal 3.4-5.0The [facility] on above:Performed By: #### CMP, MG #### [facility] [address] [place] [address] Dr. Doreen BetancourtAlbumin/Globulin [Mass ratio]0.9 {ratio}NormalThe [facility] on above:Performed By: #### CMP, MG #### [facility] [address] [place] [address] Dr. Doreen Lopez [Catalytic activity/Vol]153 U/LCritically dzdk01-942Xoz [facility] on above:Performed By: #### CMP, MG #### [facility] [address] [place] [address] Dr. Doreen Friend [Catalytic activity/Vol]36 U/KIswskr94-84Uiz [facility] Centerment on above:Performed By: #### CMP, MG #### [facility] [address] [place] [address] Dr. Doreen Cifuentes gap [Moles/Vol]11.7 mmol/LNormalNationwide Children[facility] Comment on above:Performed By: #### CMP, MG #### [facility] [address] [place] [address] Dr. Doreen BetancourtAST [Catalytic activity/Vol]30 U/RAeaedy89-43Auw [facility] CenterComment on above:Performed By: #### CMP, MG #### [facility] [address] [place] [address] Dr. Doreen BetancourtBilirubin [Mass/Vol]0.5 mg/dLNormal0.2-1.0The [facility] Comment on above:Performed By: #### CMP, MG #### [facility] [address] [place] [address] Dr. Doreen BetancourtCalcium [Mass/Vol]9.2 mg/dLNormal8.5-10.1[facility] Comment on above:Performed By: #### CMP, MG #### [facility] [address] [place] [address] Dr. Doreen BetancourtChloride [Moles/Vol]105 mmol/BYrgfgb96-828AnfNationwide Children'S Hospital Comment on above:Performed By: #### CMP, MG #### [facility] [address] [place] [address] Dr. Doreen BetancourtCO2 [Moles/Vol]27.3 mmol/TIpjicy22.0-32.0[facility] Comment on above:Performed By: #### CMP, MG #### [facility] [address] [place] [address] Dr. Doreen BetancourtCreatinine [Mass/Vol]0.75 mg/dLNormal0.55-1.02The [facility] CenterComment on above:Performed By: #### CMP, MG #### [facility] [address] [place] [address] Dr. Doreen GregoryGFR-AF NORTH KOREAN>60Normal>=60The [facility] CenterComment on above:Performed By: #### CMP, MG #### [facility] [address] [place] [address] Dr. Doreen GregoryGFR-NON AF NORTH [place]ORE[place]>60Normal>=60The [facility] CenterComment on above:Performed By: #### CMP, MG #### [facility] [address] [place] [address] Dr. Doreen BetancourtGlobulin (S) [Mass/Vol]4.0 g/dLNormalThe [facility] CenterComment on above:Performed By: #### CMP, MG #### [facility] [address] [place] [address] Dr. Doreen BetancourtGlucose [Mass/Vol]89 mg/xTJwxdus19-322Zta [facility] Comment on above:Performed By: #### CMP, MG #### [facility] [address] [place] [address] Dr. Doreen BetancourtPotassium [Moles/Vol]4.0 mmol/LNormal3.5-5.1The [facility] Comment on above:Performed By: #### CMP, MG #### [facility] [address] [place] [address] Dr. Doreen BetancourtProtein [Mass/Vol]7.5 g/dLNormal6.4-8.2[facility] Comment on above:Performed By: #### CMP, MG #### [facility] [address] [place] [address] Dr. Doreen BetancourtSodium [Moles/Vol]140 mmol/XTwtrwp309-139Nnm [facility] Comment on above:Performed By: #### CMP, MG #### [facility] [address] [place] [address] Dr. Doreen BetancourtUrea nitrogen [Mass/Vol]18.0 mg/dLNormal7.0-18.0The [facility] CenterComment on above:Performed By: #### CMP, MG #### [facility] [address] [place] [address] Dr. Doreen BetancourtUrea nitrogen/Creatinine [Mass ratio]24.0 mg/mgNormalThe [facility] CenterComment on above:Performed By: #### CMP, MG #### [facility] [address] [place] [address] Dr. Doreen BetancourtMagnesium [Mass/volume] in Serum or PlasmaOrdered By: Isaías Jordan on 82-57-6537Cnfiutygl [Mass/Vol]2.2 mg/dL1.9-2.7FMcKitrick HospitalMagnesium [Mass/Vol]Magnesium [Mass/volume] in Serum or Plasma 1.9-2.7FMcKitrick HospitalCBC AUTO DIFFon [id number] #0.0 103/ulNormal0.0-0.1The [facility] CenterComment on above:Performed By: #### CBC #### [facility] [address] [place] [address] Dr. Doreen BetancourtBasophils/100 WBC (Bld)0.3 %Normal0.2-2.0The [facility] Comment on above:Performed By: #### CBC #### [facility] [address] [place] [address] Dr. Doreen Everett #0.0 103/ulNormal0.0-0.7The [facility] CenterComment on above: Performed By: #### CBC #### [facility] [address] [place] [address] Dr. Doreen Gregoryosinophils/100 WBC (Bld)0.9 %Normal0.9-7.0The [facility] Comment on above:Performed By: #### CBC #### [facility] [address] [place] [address] Dr. Doreen Gregoryrythrocyte distribution width (RBC) [Ratio]16.3 %Critically high 11.0-15.0The [facility] CenterComment on above:Performed By: #### CBC #### [facility] [address] [place] [address] Dr. Doreen BetancourtHematocrit (Bld) [Volume fraction]37.3 %Ewkuuw40.0-48.0The [facility] CenterComment on above:Performed By: #### CBC #### [facility] [address] [place] [address] Dr. Yilan ChangHemoglobin (Bld) [Mass/Vol]12.4 g/rPSacpii86.0-16.0The [facility] CenterComment on above:Performed By: #### CBC #### [facility] [address] [place] [address] Dr. Doreen Shepherd #0.01 10e3/ulNormal0.00-0.03The [facility] CenterComment on above:Performed By: #### CBC #### [facility] [address] [place] [address] Dr. Doreen Shepherd %0.3 %Normal0.0-0.5The [facility] CenterComment on above: Performed By: #### CBC #### [facility] [address] [place] [address] Dr. Doreen Kaiser #1.1 103/ulCritically low1.2-3.8The [facility] Comment on above:Performed By: #### CBC #### [facility] [address] [place] [address] Dr. Doreen Camachohocytes/100 WBC (Bld)30.7 %Omykcg26.5-60.0The [facility] CenterComment on above:Performed By: #### CBC #### [facility] [address] [place] [address] Dr. Doreen DixonUAL DIFF REQNONormalThe [facility] CenterComment on above: Performed By: #### CBC #### [facility] [address] [place] [address] Dr. Doreen Tapia (RBC) [Entitic mass]34.3 pgCritically high26.7-34.0The [facility] CenterComment on above:Performed By: #### CBC #### [facility] [address] [place] [address] Dr. Doreen Stearns (RBC) [Mass/Vol]33.2 g/zOBdmmoo98.9-35.2The [facility] HospitalComment on above:Performed By: #### CBC #### [facility] [address] [place] [address] Dr. Doreen Alejo (RBC) [Entitic vol]103.3 fLCritically high81.0-99.0The [facility] CenterComment on above:Performed By: #### CBC #### [facility] [address] [place] [address] Dr. Doreen Cheema #0.4 103/ulNormal0.3-0.8The [facility] CenterComment on above:Performed By: #### CBC #### [facility] [address] [place] [address] Dr. Doreen Ruizocytes/100 WBC (Bld)11.4 %Normal1.7-12.0The [facility] Comment on above:Performed By: #### CBC #### [facility] [address] [place] [address] Dr. Doreen Brar #2.0 103/ulNormal1.4-6.5The [facility] CenterComment on above:Performed By: #### CBC #### [facility] [address] [place] [address] Dr. Doreen Wrenutrophils/100 WBC (Bld)56.4 %Ixarcl35.0-75.0The [facility] CenterComment on above:Performed By: #### CBC #### [facility] [address] [place] [address] Dr. Doreen Goldsteinlet mean volume (Bld) [Entitic vol]10.0 fLNormal9.5-13.5The [facility] CenterComment on above:Performed By: #### CBC #### [facility] [address] [place] [address] Dr. Doreen BetancourtPLT128 103/ulCritically vxb736-071Yyh [facility] CenterComment on above:Performed By: #### CBC #### [facility] [address] [place] [address] Dr. Doreen BetancourtRBC3.61 106/ulCritically low4.20-5.40The [facility] CenterComment on above:Performed By: #### CBC #### [facility] [address] [place] [address] Dr. Doreen BetancourtWBC3.5 103/ulCritically low4.0-11.0The [facility] CenterComment on above:Performed By: #### CBC #### [facility] [address] [place] [address] Dr. Doreen BetancourtMAGNESIUMon 89-16-8816Jmnfindbt [Mass/Vol]1.9 mg/dLNormal1.8-2.4 The [facility] CenterComment on above:Performed By: #### CVDTBH #### [facility] [address] [place] [address] Dr. Doreen BetancourtPROF 14(COMP METB)on 88-50-6771Lxtufou [Mass/Vol]3.7 g/dLNormal 3.4-5.0The [facility] CenterComment on above:Performed By: #### CVDTBH #### [facility] [address] [place] [address] Dr. Doreen BetancourtAlbumin/Globulin [Mass ratio]1.1 {ratio}NormalThe [facility] CenterComment on above:Performed By: #### CVDTBH #### [facility] [address] [place] [address] Dr. Doreen Lopez [Catalytic activity/Vol]138 U/LCritically kuwn98-155Zvh [facility] CenterComment on above:Performed By: #### CVDTBH #### [facility] [address] [place] [address] Dr. Doreen Friend [Catalytic activity/Vol]42 U/BWqdzql70-61Zwk [facility] CenterComment on above:Performed By: #### CVDTBH #### [facility] [address] [place] [address] Dr. Doreen Cifuentes gap [Moles/Vol]11.0 mmol/LNormalThe [facility] on above:Performed By: #### CVDTBH #### [facility] [address] [place] [address] [Catalytic activity/Vol]36 U/GNaonxg17-89Eee [facility] CenterComment on above:Performed By: #### CVDTBH #### [facility] [address] [address] [address] Doreen BetancourtBilirubin [Mass/Vol]0.5 mg/dLNormal0.2-1.0The [facility] Comment on above:Performed By: #### CVDTBH #### [facility] [address] [address] [address] Doreen BetancoutrCalcium [Mass/Vol]9.6 mg/dLNormal8.5-10.1The [facility] Comment on above:Performed By: #### CVDTBH #### [facility] [address] [address] [address] Doreen BetancourtChloride [Moles/Vol]104 mmol/DVfchnh46-274Bar [facility] Comment on above:Performed By: #### CVDTBH #### [facility] [address] [address] [address] Doreen BetancourtCO2 [Moles/Vol]29.8 mmol/UVsmgov91.0-32.0[facility] Comment on above:Performed By: #### CVDTBH #### [facility] [address] [address] [address] Doreen BetancourtCreatinine [Mass/Vol]0.62 mg/dLNormal0.55-1.02[facility] HospitalComment on above:Performed By: #### CVDTBH #### [facility] [address] [address] [address] Doreen GregoryGFR-AF NORTH KOREAN>60Normal>=60The [facility] CenterComment on above:Performed By: #### CVDTBH #### [facility] [address] [address] [address] Doreen GregoryGFR-NON AF [place]>60Normal>=60The [facility] CenterComment on above:Performed By: #### CVDTBH #### [facility] [address] [address] [address] Doreen BetancourtGlobulin (S) [Mass/Vol]3.4 g/dLNormalThe [facility] CenterComment on above:Performed By: #### CVDTBH #### [facility] [address] [address] [address] Doreen BetancourtGlucose [Mass/Vol]115 mg/dLCritically zuap50-598Fvz [facility] CenterComment on above:Performed By: #### CVDTBH #### [facility] [address] [address] [address] Doreen BetancoutrPotassium [Moles/Vol]4.8 mmol/LNormal3.5-5.1The [facility] Comment on above:Performed By: #### CVDTBH #### [facility] [address] [address] [address] Doreen BetancourtProtein [Mass/Vol]7.1 g/dLNormal6.4-8.2[facility] Comment on above:Performed By: #### CVDTBH #### [facility] [address] [address] [address] Doreen BetancourtSodium [Moles/Vol]140 mmol/BOdjchq288-947Qdf [facility] Comment on above:Performed By: #### CVDTBH #### [facility] [address] [place] [address] Dr. Doreen BetancourtUrea nitrogen [Mass/Vol]14.0 mg/dLNormal7.0-18.0The [facility] CenterComment on above:Performed By: #### CVDTBH #### [facility] [address] [address] [address] Doreen Copeland nitrogen/Creatinine [Mass ratio]22.6 mg/mgNormalThe [facility] CenterComment on above:Performed By: #### CVDTBH #### [facility] [address] [place] [address] Dr. Doreen Alcaraz B SURFACE ANTIGEN SCREENon 79-38-0275CJtJp ScreenNegative NormalNegativeThe [facility] CenterComment on above:Performed By: #### CVDTBH #### [facility] [address] [place] [address] Dr. Doreen Pinzon B SURFACE ANTIBODY, QUANTon [id number] B Surf AB Quant46.7 mIU/mLNormalImmunity>9.9The [facility] on above: Result Comment: Status of Immunity Anti-HBs Level Inconsistent with Immunity 0.0 - 9.9 Consistent with Immunity >9.9Performed By: #### MG, CMP #### [facility] [address] [place] [address] Dr. Doreen Pinzon C ANTIBODYon [id number] C Virus AbNon-ReactiveNormal Non ReactiveThe [facility] CenterComhenry [facility] on above:Result Comment: HCV antibody alone does not differentiate between previously resolved infection and active infection. Equivocal and Reactive HCV antibody results should be followed up with an HCV RNA test to support the diagnosis of active HCV infection.Performed By: #### CVDTBH #### [facility] [address] [place] [address] Dr. Doreen Shi QUANTon [id number] Plasma Reagin, QuantNon-Reactive NormalNonRea<1:1The [facility] on above:Result Comment: Please Note: This test does not meet current guidelines for screening and diagnosis of syphilis. This test is intended for following treatment response in patients being treated for syphilis infection. To screen for syphilis infection, a reflex cascade that includes both RPR and a treponema-specific assay should be utilized, such as Treponema pallidum (Syphilis) Screening [place] (806073) or Rapid Plasma Reagin (RPR) Test With Reflex to Quantitative RPR and Confirmatory Treponema pallidum Antibodies (514778).Performed By: #### MG, CMP #### [facility] [address] [place] [address] Dr. Doreen Cherry 1/2 RAPID (EXPOSURE ONLY)on [id number] ABNon-Reactive NormalNON-REACTIVEThe [facility] CenterComhenry [facility] on above:Performed By: #### MG, CMP #### [facility] [address] [place] [address] Dr. Doreen Cherry KGDlv-CxbwnhxcCvqkmyJUG-AXTIKNCKVga [facility] CenterComment on above:Performed By: #### MG, CMP #### [facility] [address] [place] [address] Dr. Doreen BetancourtINTERNAL CONTROLSWithin Normal LimitsNormalWithin Normal Limits The [facility] Centerment on above:Performed By: #### MG, CMP #### [facility] [address] [place] [address] Dr. Doreen Artis HIV INFOSEE [facility] GeneralComment on above:Result Comment: This test is used for the initial screening of the exposure source. Confirmation ofall reactive results will be obtained through reference lab testing.Performed By: #### MG, CMP #### [facility] [address] [place] [address] Dr. Doreen Keller AUTO DIFFon [id number] #0.0 103/ulNormal0.0-0.1[facility] on above:Performed By: #### MG, CMP #### [facility] [address] [place] [address] Dr. Doreen BetancourtBasophils/100 WBC (Bld)0.7 %Normal0.2-2.0[facility] Comment on above:Performed By: #### MG, CMP #### [facility] [address] [place] [address] Dr. Doreen Everett #0.0 103/ulNormal0.0-0.7The [facility] Centerment on above: Performed By: #### MG, CMP #### [facility] [address] [place] [address] Dr. Doreen Gregoryosinophils/100 WBC (Bld)0.7 %Critically low0.9-7.0[facility] on above:Performed By: #### MG, CMP #### [facility] [address] [place] [address] Dr. Doreen Gregoryrythrocyte distribution width (RBC) [Ratio]18.2 %Critically high 11.0-15.0The [facility] HospitalComment on above:Performed By: #### MG, CMP #### [facility] [address] [place] [address] Dr. Doreen Espinozaatocrit (Bld) [Volume fraction]37.8 %Jygtuc32.0-48.0The [facility] CenterComment on above:Performed By: #### MG, CMP #### [facility] [address] [place] [address] Dr. Doreen BetancourtHemoglobin (Bld) [Mass/Vol]12.3 g/oOYcicrp19.0-16.0The [facility] CenterComment on above:Performed By: #### MG, CMP #### [facility] [address] [place] [address] Dr. Doreen Shepherd #0.01 10e3/ulNormal0.00-0.03The [facility] CenterComhenry [facility] on above:Performed By: #### MG, CMP #### [facility] [address] [place] [address] Dr. Doreen Shepherd %0.3 %Normal0.0-0.5The [facility] CenterComment on above: Performed By: #### MG, CMP #### [facility] [address] [place] [address] Dr. Doreen Kaiser #1.5 103/ulNormal1.2-3.8The [facility] CenterComment on above:Performed By: #### MG, CMP #### [facility] [address] [place] [address] Dr. Doreen Camachohocytes/100 WBC (Bld)49.5 %Nizdxe58.5-60.0The [facility] CenterComment on above:Performed By: #### MG, CMP #### [facility] [address] [place] [address] Dr. Doreen DixonUAL DIFF REQNONormalThe [facility] CenterComment on above: Performed By: #### MG, CMP #### [facility] [address] [place] [address] Dr. Doreen Tapia (RBC) [Entitic mass]33.3 vrTtvtao56.7-34.0The [facility] HospitalComment on above:Performed By: #### MG, CMP #### [facility] [address] [place] [address] Dr. Doreen Stearns (RBC) [Mass/Vol]32.5 g/iJJwkeih01.9-35.2The [facility] CenterComment on above:Performed By: #### MG, CMP #### [facility] [address] [place] [address] Dr. Doreen Alejo (RBC) [Entitic vol]102.4 fLCritically high81.0-99.0The [facility] CenterComment on above:Performed By: #### MG, CMP #### [facility] [address] [place] [address] Dr. Doreen Cheema #0.5 103/ulNormal0.3-0.8The [facility] CenterComment on above:Performed By: #### MG, CMP #### [facility] [address] [place] [address] Dr. Doreen Ruizocytes/100 WBC (Bld)14.7 %Critically high1.7-12.0The [facility] CenterComment on above:Performed By: #### MG, CMP #### [facility] [address] [place] [address] Dr. Doreen Brar #1.1 103/ulCritically low1.4-6.5The [facility] CenterComment on above:Performed By: #### MG, CMP #### [facility] [address] [place] [address] Dr. Doreen Wrenutrophils/100 WBC (Bld)34.1 %Critically low43.0-75.0The [facility] CenterComment on above:Performed By: #### MG, CMP #### [facility] [address] [place] [address] Dr. Doreen Basilio mean volume (Bld) [Entitic vol]11.1 fLNormal9.5-13.5The [facility] CenterComment on above:Performed By: #### MG, CMP #### [facility] [address] [place] [address] Dr. Doreen BetancourtPLT117 103/ulCritically gak894-003Hcb [facility] CenterComment on above:Performed By: #### MG, CMP #### [facility] [address] [place] [address] Dr. Doreen BetancourtRBC3.69 106/ulCritically low4.20-5.40The [facility] CenterComment on above:Performed By: #### MG, CMP #### [facility] [address] [place] [address] Dr. Doreen BetancourtWBC3.1 103/ulCritically low4.0-11.0The [facility] CenterComment on above:Performed By: #### MG, CMP #### [facility] [address] [place] [address] Dr. Doreen BetancourtMAGNESIUMon [id number] [Mass/Vol]2.0 mg/dLNormal1.8-2.4 The [facility] CenterComment on above:Performed By: #### MG, CMP #### [facility] [address] [place] [address] Dr. Doreen Silva 14(COMP METB)on [id number] [Mass/Vol]3.4 g/dLNormal 3.4-5.0The [facility] CenterComment on above:Performed By: #### MG, CMP #### [facility] [address] [place] [address] Dr. Doreen BetancourtAlbumin/Globulin [Mass ratio]1.0 {ratio}NormalThe [facility] CenterComhenry [facility] on above:Performed By: #### MG, CMP #### [facility] [address] [place] [address] Dr. Doreen Lopez [Catalytic activity/Vol]121 U/LCritically wscu38-748Adj [facility] CenterComment on above:Performed By: #### MG, CMP #### [facility] [address] [place] [address] Dr. Doreen Friend [Catalytic activity/Vol]52 U/XEsfnnv78-52Asb [facility] CenterComment on above:Performed By: #### MG, CMP #### [facility] [address] [place] [address] Dr. Doreen Sharifon gap [Moles/Vol]11.5 mmol/LNormalNationwide [facility] Comment on above:Performed By: #### MG, CMP #### [facility] [address] [place] [address] Dr. Doreen BetancourtAST [Catalytic activity/Vol]34 U/MEpbjzg04-31Xig [facility] CenterComment on above:Performed By: #### MG, CMP #### [facility] [address] [place] [address] Dr. Doreen BetancourtBilirubin [Mass/Vol]0.4 mg/dLNormal0.2-1.0[facility] Comment on above:Performed By: #### MG, CMP #### [facility] [address] [place] [address] Dr. Doreen BetancourtCalcium [Mass/Vol]9.5 mg/dLNormal8.5-10.1[facility] Comment on above:Performed By: #### MG, CMP #### [facility] [address] [place] [address] Dr. Doreen BetancourtChloride [Moles/Vol]106 mmol/VOshjgw83-993ZsvNationwide Children'S Hospital Comment on above:Performed By: #### MG, CMP #### [facility] [address] [place] [address] Dr. Doreen BetancourtCO2 [Moles/Vol]28.6 mmol/QJydlha38.0-32.0The [facility] Comment on above:Performed By: #### MG, CMP #### [facility] [address] [place] [address] Dr. Doreen BetancourtCreatinine [Mass/Vol]0.60 mg/dLNormal0.55-1.02The [facility] CenterComment on above:Performed By: #### MG, CMP #### [facility] [address] [place] [address] Dr. Doreen GregoryGFR-AF NORTH KOREAN>60Normal>=60The [facility] CenterComment on above:Performed By: #### MG, CMP #### [facility] [address] [address] [address] Doreen GregoryGFR-NON AF [place]ORE[place]>60Normal>=60The [facility] CenterComment on above:Performed By: #### MG, CMP #### [facility] [address] [place] [address] Dr. Doreen BetancourtGlobulin (S) [Mass/Vol]3.5 g/dLNormalThe [facility] CenterComment on above:Performed By: #### MG, CMP #### [facility] [address] [place] [address] Dr. Doreen BetancourtGlucose [Mass/Vol]95 mg/eVXswfan02-546WirNationwide Children'S Hospital Comment on above:Performed By: #### MG, CMP #### [facility] [address] [place] [address] Dr. Doreen BetancourtPotassium [Moles/Vol]4.1 mmol/LNormal3.5-5.1[facility] Comment on above:Performed By: #### MG, CMP #### [facility] [address] [place] [address] Dr. Doreen BetancourtProtein [Mass/Vol]6.9 g/dLNormal6.4-8.2[facility] Comment on above:Performed By: #### MG, CMP #### [facility] [address] [place] [address] Dr. Doreen BetancourtSodium [Moles/Vol]142 mmol/DOatqvg002-275PynNationwide Children'S Hospital Comment on above:Performed By: #### MG, CMP #### [facility] [address] [place] [address] Dr. Doreen BetancourtUrea nitrogen [Mass/Vol]13.0 mg/dLNormal7.0-18.0The [facility] CenterComment on above:Performed By: #### MG, CMP #### [facility] [address] [place] [address] Dr. Doreen Copeland nitrogen/Creatinine [Mass ratio]21.7 mg/mgNormalThMemorial Health SystemComment on above:Performed By: #### MG, CMP #### [facility] [address] [address] [address] Doreen Keller W MANUAL DIFFon [id number]Qtd [facility] HospitalComment on above:Performed By: #### MG, CMP #### [facility] [address] [address] [address] Doreen Grayson LYMPH #NormalNationwide Children'S HospitalComment on above: Performed By: #### MG, CMP #### [facility] [address] [place] [address] Dr. Doreen Grayson LYMPH %NormalNationwide Children'S HospitalComment on above: Performed By: #### MG, CMP #### [facility] [address] [place] [address] Dr. Doreen Walls #Normal0.0-0.3The [facility] CenterComment on above: Performed By: #### MG, CMP #### [facility] [address] [place] [address] Dr. Doreen Walls %Normal0-5The [facility] CenterComment on above:Performed By: #### MG, CMP #### [facility] [address] [place] [address] Dr. Doreen Constantino #0.00 103/ulNormal0.00-0.10The [facility] CenterComment on above:Performed By: #### MG, CMP #### [facility] [address] [place] [address] Dr. Doreen Constantino %0.0 %Critically low0.2-2.0The [facility] CenterComment on above:Performed By: #### MG, CMP #### [facility] [address] [address] [address] Doreen Skinner #NormalOhiohealth Mansfield Hospital HospitalComment on above:Performed By: #### MG, CMP #### [facility] [address] [place] [address] Dr. Doreen BetancourtBLAST %NormalNationwide Children'S HospitalComment on above:Performed By: #### MG, CMP #### [facility] [address] [place] [address] Dr. Doreen BetancourtCORRECTED WBCNormal4.0-11.0The [facility] CenterComment on above: Performed By: #### MG, CMP #### [facility] [address] [place] [address] Dr. Doreen Cazares #0.00 103/ulNormal0.00-0.70The [facility] CenterComment on above:Performed By: #### MG, CMP #### [facility] [address] [place] [address] Dr. Doreen Cazares%0.0 %Critically low0.9-7.0The [facility] CenterComment on above:Performed By: #### MG, CMP #### [facility] [address] [place] [address] Dr. Doreen BetancourtHCT36.2 %Pistmq64.0-48.0The [facility] CenterComment on above: Performed By: #### MG, CMP #### [facility] [address] [place] [address] Dr. Doreen BetancourtHGB12.1 g/bjCpwpvr96.0-16.0The [facility] CenterComhenry [facility] on above: Performed By: #### MG, CMP #### [facility] [address] [place] [address] Dr. Doreen Fontaine #2.08 103/ulNormal1.20-3.80The [facility] CenterComment on above:Performed By: #### MG, CMP #### [facility] [address] [place] [address] Dr. Doreen Fontaine%63.0 %Critically high20.5-60.0The [facility] CenterComment on above:Performed By: #### MG, CMP #### [facility] [address] [place] [address] Dr. Doreen BetancourtMCH33.0 qfSkaqzl81.7-34.0The [facility] HospitalComment on above: Performed By: #### MG, CMP #### [facility] [address] [place] [address] Dr. Doreen StearnsHC33.4 g/vpZxfgag65.9-35.2The [facility] HospitalComment on above:Performed By: #### MG, CMP #### [facility] [address] [place] [address] Dr. Doreen StearnsV98.6 oOLnzsol59.0-99.0The [facility] HospitalComment on above: Performed By: #### MG, CMP #### [facility] [address] [place] [address] Dr. Doreen Dawkins #NormalThe [facility] CenterComment on above: Performed By: #### MG, CMP #### [facility] [address] [place] [address] Dr. Doreen MontalvoOCYTE %NormalThe [facility] HospitalComment on above: Performed By: #### MG, CMP #### [facility] [address] [place] [address] Dr. Doreen Mishra#0.33 103/ulNormal0.30-0.80The [facility] CenterComment on above:Performed By: #### MG, CMP #### [facility] [address] [place] [address] Dr. Doreen Mishra%10.0 %Normal1.7-12.0The [facility] HospitalComment on above: Performed By: #### MG, CMP #### [facility] [address] [place] [address] Dr. Doreen KanV10.4 fLNormal9.5-13.5The [facility] CenterComment on above: Performed By: #### MG, CMP #### [facility] [address] [place] [address] Dr. Doreen MccainOCYTE #NormalThe [facility] HospitalComment on above:Performed By: #### MG, CMP #### [facility] [address] [place] [address] Dr. Doreen MccainOCYTE %NormalNationwide Children'S HospitalComment on above:Performed By: #### MG, CMP #### [facility] [address] [place] [address] Dr. Doreen RubyNokinaSt. John of God Hospitale [facility] CenterComment on above:Performed By: #### MG, CMP #### [facility] [address] [place] [address] Dr. Doreen DurantT92 103/ulCritically vta477-485Zrh [facility] CenterComment on above:Performed By: #### MG, CMP #### [facility] [address] [place] [address] Dr. Doreen TavaresC3.67 106/ulCritically low4.20-5.40The [facility] CenterComment on above:Performed By: #### MG, CMP #### [facility] [address] [place] [address] Dr. Doreen GuadalupeW17.8 %Critically high11.0-15.0The [facility] CenterComment on above:Performed By: #### MG, CMP #### [facility] [address] [place] [address] Dr. Doreen Knight #0.89 103/ulCritically low1.40-6.50The [facility] on above:Performed By: #### MG, CMP #### [facility] [address] [place] [address] Dr. Doreen Knight %27.0 %Critically low43.0-75.0[facility]'S HospitalComment on above:Performed By: #### MG, CMP #### [facility] [address] [place] [address] Dr. Doreen DoughertyBC3.3 103/ulCritically low4.0-11.0The [facility] CenterComment on above:Performed By: #### MG, CMP #### [facility] [address] [place] [address] Dr. Doreen OwensGNESIUMon [id number] [Mass/Vol]2.1 mg/dLNormal1.8-2.4 The [facility] CenterComment on above:Performed By: #### CBC #### [facility] [address] [place] [address] Dr. Doreen Silva 14(COMP METB)on [id number] [Mass/Vol]3.5 g/dLNormal 3.4-5.0The [facility] CenterComment on above:Performed By: #### CBC #### [facility] [address] [place] [address] Dr. Doreen BetancourtAlbumin/Globulin [Mass ratio]1.0 {ratio}NormalThe [facility] CenterComment on above:Performed By: #### CBC #### [facility] [address] [place] [address] Dr. Doreen CarolinaP [Catalytic activity/Vol]131 U/LCritically fpfm01-521Quy [facility] CenterComment on above:Performed By: #### CBC #### [facility] [address] [place] [address] Dr. Doreen Friend [Catalytic activity/Vol]98 U/LCritically cojw31-91Sjl [facility] CenterComment on above:Performed By: #### CBC #### [facility] [address] [place] [address] Dr. Doreen Cifuentes gap [Moles/Vol]12.3 mmol/LNormalThe [facility] Comment on above:Performed By: #### CBC #### [facility] [address] [place] [address] Dr. Doreen BetancourtAST [Catalytic activity/Vol]78 U/LCritically lngy01-01Dsl [facility] CenterComment on above:Performed By: #### CBC #### [facility] [address] [place] [address] Dr. Doreen BetancourtBilirubin [Mass/Vol]0.3 mg/dLNormal0.2-1.0The [facility] Comment on above:Performed By: #### CBC #### [facility] [address] [place] [address] Dr. Yilan ChangCalcium [Mass/Vol]9.3 mg/dLNormal8.5-10.1The [facility] Comment on above:Performed By: #### CBC #### [facility] [address] [address] [address] Doreen BetancourtChloride [Moles/Vol]104 mmol/TMnimbz77-625Xva [facility] Comment on above:Performed By: #### CBC #### [facility] [address] [address] [address] Doreen BetancourtCO2 [Moles/Vol]29.4 mmol/PVznpjf48.0-32.0The [facility] Comment on above:Performed By: #### CBC #### [facility] [address] [place] [address] Dr. Doreen BetancourtCreatinine [Mass/Vol]0.67 mg/dLNormal0.55-1.02The [facility] CenterComment on above:Performed By: #### CBC #### [facility] [address] [place] [address] Dr. Doreen GregoryGFR-AF NORTH KOREAN>60Normal>=60The [facility] CenterComment on above:Performed By: #### CBC #### [facility] [address] [place] [address] Dr. Doreen GregoryGFR-NON AF [place]ORE[place]>60Normal>=60The [facility] CenterComment on above:Performed By: #### CBC #### [facility] [address] [place] [address] Dr. Doreen BetancourtGlobulin (S) [Mass/Vol]3.5 g/dLNormalThe [facility] CenterComment on above:Performed By: #### CBC #### [facility] [address] [place] [address] Dr. Doreen BetancourtGlucose [Mass/Vol]100 mg/lRHjkhfa37-622Crn [facility] Comment on above:Performed By: #### CBC #### [facility] [address] [place] [address] Dr. Doreen BetancourtPotassium [Moles/Vol]4.7 mmol/LNormal3.5-5.1[facility] Comment on above:Performed By: #### CBC #### [facility] [address] [place] [address] Dr. Doreen BetancourtProtein [Mass/Vol]7.0 g/dLNormal6.4-8.2[facility] Comment on above:Performed By: #### CBC #### [facility] [address] [place] [address] Dr. Doreen Parkum [Moles/Vol]141 mmol/QBbtfqr843-303JylNationwide Children'S Hospital Comment on above:Performed By: #### CBC #### [facility] [address] [place] [address] Dr. Doreen Copeland nitrogen [Mass/Vol]13.0 mg/dLNormal7.0-18.0[facility] HospitalComment on above:Performed By: #### CBC #### [facility] [address] [place] [address] Dr. Doreen Copeland nitrogen/Creatinine [Mass ratio]19.4 mg/mgNormalThMemorial Health SystemComment on above:Performed By: #### CBC #### [facility] [address] [place] [address] Dr. Doreen Keller AUTO DIFFon [id number] #0.0 103/ulNormal0.0-0.1[facility] HospitalComment on above:Performed By: #### MG, CMP #### [facility] [address] [place] [address] Dr. Doreen BetancourtBajustinephils/100 WBC (Bld)0.6 %Normal0.2-2.0[facility] Comment on above:Performed By: #### MG, CMP #### [facility] [address] [place] [address] Dr. Doreen Everett #0.0 103/ulNormal0.0-0.7The [facility] CenterComment on above: Performed By: #### MG, CMP #### [facility] [address] [place] [address] Dr. Doreen Gregoryosinophils/100 WBC (Bld)0.6 %Critically low0.9-7.0The [facility] CenterComment on above:Performed By: #### MG, CMP #### [facility] [address] [place] [address] Dr. Doreen Gregoryrythrocyte distribution width (RBC) [Ratio]17.8 %Critically high 11.0-15.0The [facility] CenterComment on above:Performed By: #### MG, CMP #### [facility] [address] [place] [address] Dr. Doreen BetancourtHematocrit (Bld) [Volume fraction]36.1 %Jdioad84.0-48.0The [facility] CenterComment on above:Performed By: #### MG, CMP #### [facility] [address] [place] [address] Dr. Doreen BetancourtHemoglobin (Bld) [Mass/Vol]12.6 g/nAWrtzhh97.0-16.0The [facility] CenterComment on above:Performed By: #### MG, CMP #### [facility] [address] [place] [address] Dr. Doreen Shepherd #0.01 10e3/ulNormal0.00-0.03The [facility] CenterComhenry [facility] on above:Performed By: #### MG, CMP #### [facility] [address] [place] [address] Dr. Doreen Shepherd %0.3 %Normal0.0-0.5The [facility] on above: Performed By: #### MG, CMP #### [facility] [address] [place] [address] Dr. Doreen NunezMPH #1.6 103/ulNormal1.2-3.8The [facility] CenterComment on above:Performed By: #### MG, CMP #### [facility] [address] [place] [address] Dr. Doreen Nunezmphocytes/100 WBC (Bld)46.4 %Gymqts63.5-60.0The [facility] HospitalComment on above:Performed By: #### MG, CMP #### [facility] [address] [place] [address] Dr. Doreen Yusuf DIFF REQNONormalThe [facility] CenterComment on above: Performed By: #### MG, CMP #### [facility] [address] [place] [address] Dr. Doreen Stearns (RBC) [Entitic mass]32.1 rhYrgrpq56.7-34.0The [facility] CenterComment on above:Performed By: #### MG, CMP #### [facility] [address] [place] [address] Dr. Doreen Stearns (RBC) [Mass/Vol]34.9 g/eSZcphym41.9-35.2The [facility] CenterComment on above:Performed By: #### MG, CMP #### [facility] [address] [place] [address] Dr. Doreen Stearns (RBC) [Entitic vol]91.9 yVOlfnhs90.0-99.0The [facility] Centerment on above:Performed By: #### MG, CMP #### [facility] [address] [place] [address] Dr. Doreen Cheema #0.3 103/ulNormal0.3-0.8The [facility] Centerment on above:Performed By: #### MG, CMP #### [facility] [address] [place] [address] Dr. Doreen Ruizocytes/100 WBC (Bld)9.7 %Normal1.7-12.0The [facility] Comment on above:Performed By: #### MG, CMP #### [facility] [address] [place] [address] Dr. Doreen Brar #1.5 103/ulNormal1.4-6.5The [facility] Centerment on above:Performed By: #### MG, CMP #### [facility] [address] [place] [address] Dr. Doreen Wrenutrophils/100 WBC (Bld)42.4 %Critically low43.0-75.0The [facility] CenterComment on above:Performed By: #### MG, CMP #### [facility] [address] [place] [address] Dr. Doreen Basilio mean volume (Bld) [Entitic vol]11.1 fLNormal9.5-13.5The [facility] CenterComment on above:Performed By: #### MG, CMP #### [facility] [address] [place] [address] Dr. Doreen BetancourtPLT101 103/ulCritically led878-836Qvp [facility] CenterComment on above:Performed By: #### MG, CMP #### [facility] [address] [place] [address] Dr. Doreen BetancourtRBC3.93 106/ulCritically low4.20-5.40The [facility] CenterComment on above:Performed By: #### MG, CMP #### [facility] [address] [place] [address] Dr. Dorene BetancourtWBC3.5 103/ulCritically low4.0-11.0The [facility] CenterComment on above:Performed By: #### MG, CMP #### [facility] [address] [place] [address] Dr. Doreen BetancourtMAGNESIUMon 14-91-9681Wkfbmfhfo [Mass/Vol]2.0 mg/dLNormal1.8-2.4 The [facility] CenterComment on above:Performed By: #### CMP, MG #### [facility] [address] [place] [address] Dr. Doreen BetancourtPROF 14(COMP METB)on 90-56-6233Gktcxpe [Mass/Vol]3.6 g/dLNormal 3.4-5.0The [facility] CenterComment on above:Performed By: #### CMP, MG #### [facility] [address] [place] [address] Dr. Doreen BetancourtAlbumin/Globulin [Mass ratio]1.0 {ratio}NormalThe [facility] CenterComment on above:Performed By: #### CMP, MG #### [facility] [address] [address] [address] Doreen Lopez [Catalytic activity/Vol]120 U/LCritically inmu80-818Gad [facility] CenterComment on above:Performed By: #### CMP, MG #### [facility] [address] [address] [address] Doreen CarolinaT [Catalytic activity/Vol]80 U/LCritically kliv07-01Bqm [facility] CenterComment on above:Performed By: #### CMP, MG #### [facility] [address] [address] [address] Doreen Sharifon gap [Moles/Vol]10.7 mmol/LNormalThe [facility] Comment on above:Performed By: #### CMP, MG #### [facility] [address] [address] [address] Doreen BetancourtAST [Catalytic activity/Vol]62 U/LCritically becr36-67Uoa [facility] CenterComment on above:Performed By: #### CMP, MG #### [facility] [address] [address] [address] Doreen BetancourtBilirubin [Mass/Vol]0.4 mg/dLNormal0.2-1.0The [facility] Comment on above:Performed By: #### CMP, MG #### [facility] [address] [address] [address] Doreen BetancourtCalcium [Mass/Vol]9.6 mg/dLNormal8.5-10.1The [facility] Comment on above:Performed By: #### CMP, MG #### [facility] [address] [address] [address] Doreen BetancourtChloride [Moles/Vol]106 mmol/NPpmbtp94-024Uec [facility] Comment on above:Performed By: #### CMP, MG #### [facility] [address] [address] [address] Doreen BetancourtCO2 [Moles/Vol]29.5 mmol/KQbeqqo77.0-32.0The [facility] Comment on above:Performed By: #### CMP, MG #### [facility] [address] [address] [address] Doreen BetancourtCreatinine [Mass/Vol]0.67 mg/dLNormal0.55-1.02The [facility] CenterComment on above:Performed By: #### CMP, MG #### [facility] [address] [address] [address] Doreen GregoryGFR-AF NORTH KOREAN>60Normal>=60The [facility] CenterComment on above:Performed By: #### CMP, MG #### [facility] [address] [address] [address] Doreen GregoryGFR-NON AF NORTH [place]OREAN>60Normal>=60The [facility] CenterComment on above:Performed By: #### CMP, MG #### [facility] [address] [address] [address] Doreen BetancourtGlobulin (S) [Mass/Vol]3.5 g/dLNormalThe [facility] CenterComment on above:Performed By: #### CMP, MG #### [facility] [address] [address] [address] Doreen BetancourtGlucose [Mass/Vol]128 mg/dLCritically segs67-376Qpk [facility] CenterComment on above:Performed By: #### CMP, MG #### [facility] [address] [address] [address] Doreen BetancourtPotassium [Moles/Vol]4.2 mmol/LNormal3.5-5.1The [facility] Comment on above:Performed By: #### CMP, MG #### [facility] [address] [address] [address] Doreen BetancourtProtein [Mass/Vol]7.1 g/dLNormal6.4-8.2The [facility] Comment on above:Performed By: #### CMP, MG #### [facility] [address] [address] [address] Doreen BetancourtSodium [Moles/Vol]142 mmol/WDszdjg082-570Nhh [facility] Comment on above:Performed By: #### CMP, MG #### [facility] [address] [place] [address] Dr. Doreen Copeland nitrogen [Mass/Vol]12.0 mg/dLNormal7.0-18.0The [facility] CenterComment on above:Performed By: #### CMP, MG #### [facility] [address] [place] [address] Dr. Doreen Copeland nitrogen/Creatinine [Mass ratio]17.9 mg/mgNormalThe [facility] CenterComment on above:Performed By: #### CMP, MG #### [facility] [address] [place] [address] Dr. Doreen Cobian 56-34-4830WZE8.1 ng/mLCritically high0.0-4.7ThMemorial Health SystemComment on above:Result Comment: Nonsmokers <3.9 Smokers <5.6 . [employer] Electrochemiluminescence Immunoassay (ECLIA) . Values obtained with different assay methods or kits cannot be used interchangeably. Results cannot be interpreted as absolute evidence of the presence or absence of malignant disease.Performed By: #### CVDTBH #### [facility] [address] [place] [address] Dr. Doreen Keller AUTO DIFFon 08-26-4569JNIT #0.0 103/ulNormal0.0-0.1N[facility]'S HospitalComment on above:Performed By: #### CVDTBH #### [facility] [address] [place] [address] Dr. Doreen BetancourtBasophils/100 WBC (Bld)0.9 %Normal0.2-2.0[facility] Comment on above:Performed By: #### CVDTBH #### [facility] [address] [place] [address] Dr. Doreen Everett #0.0 103/ulNormal0.0-0.7ThMemorial Health SystemComment on above: Performed By: #### CVDTBH #### [facility] [address] [place] [address] Dr. Doreen Gregoryosinophils/100 WBC (Bld)0.6 %Critically low0.9-7.0The [facility] CenterComment on above:Performed By: #### CVDTBH #### [facility] [address] [place] [address] Dr. Doreen Gregoryrythrocyte distribution width (RBC) [Ratio]17.2 %Critically high 11.0-15.0The [facility] CenterComment on above:Performed By: #### CVDTBH #### [facility] [address] [place] [address] Dr. Doreen BetancourtHematocrit (Bld) [Volume fraction]39.1 %Jhdwob44.0-48.0The [facility] CenterComment on above:Performed By: #### CVDTBH #### [facility] [address] [place] [address] Dr. Doreen BetancourtHemoglobin (Bld) [Mass/Vol]13.0 g/aCEeddao93.0-16.0The [facility] CenterComment on above:Performed By: #### CVDTBH #### [facility] [address] [place] [address] Dr. Doreen Shepherd #0.00 10e3/ulNormal0.00-0.03The [facility] CenterComhenry [facility] on above:Performed By: #### CVDTBH #### [facility] [address] [place] [address] Dr. Doreen Shepherd %0.0 %Normal0.0-0.5The [facility] CenterComment on above: Performed By: #### CVDTBH #### [facility] [address] [place] [address] Dr. Doreen NunezMPH #2.0 103/ulNormal1.2-3.8The [facility] CenterComment on above:Performed By: #### CVDTBH #### [facility] [address] [place] [address] Dr. Doreen Nunezmphocytes/100 WBC (Bld)42.1 %Iipccc54.5-60.0The [facility] CenterComment on above:Performed By: #### CVDTBH #### [facility] [address] [place] [address] Dr. Doreen Yusuf DIFF REQNONormalThe [facility] CenterComment on above: Performed By: #### CVDTBH #### [facility] [address] [place] [address] Dr. Doreen Stearns (RBC) [Entitic mass]31.1 adBqxkys74.7-34.0The [facility] HospitalComment on above:Performed By: #### CVDTBH #### [facility] [address] [place] [address] Dr. Doreen Stearns (RBC) [Mass/Vol]33.2 g/yZOscgcb50.9-35.2The [facility] CenterComment on above:Performed By: #### CVDTBH #### [facility] [address] [place] [address] Dr. Doreen Stearns (RBC) [Entitic vol]93.5 nAFmjwka41.0-99.0The [facility] CenterComment on above:Performed By: #### CVDTBH #### [facility] [address] [place] [address] Dr. Doreen Cheema #0.6 103/ulNormal0.3-0.8The [facility] CenterComhenry [facility] on above:Performed By: #### CVDTBH #### [facility] [address] [place] [address] Dr. Doreen Ruizocytes/100 WBC (Bld)13.5 %Critically high1.7-12.0The [facility] CenterComment on above:Performed By: #### CVDTBH #### [facility] [address] [place] [address] Dr. Doreen Brar #2.0 103/ulNormal1.4-6.5The [facility] CenterComment on above:Performed By: #### CVDTBH #### [facility] [address] [place] [address] Dr. Yilan ChangNeutrophils/100 WBC (Bld)42.9 %Critically low43.0-75.0The [facility] CenterComment on above:Performed By: #### CVDTBH #### [facility] [address] [place] [address] Dr. Doreen Basilio mean volume (Bld) [Entitic vol]10.2 fLNormal9.5-13.5The [facility] CenterComment on above:Performed By: #### CVDTBH #### [facility] [address] [place] [address] Dr. Doreen BetancourtPLT143 103/ulCritically prh976-270Ekb [facility] CenterComment on above:Performed By: #### CVDTBH #### [facility] [address] [place] [address] Dr. Doreen BetancourtRBC4.18 106/ulCritically low4.20-5.40The [facility] CenterComment on above:Performed By: #### CVDTBH #### [facility] [address] [place] [address] Dr. Doreen BetancourtWBC4.7 103/ulNormal4.0-11.0The [facility] CenterComment on above: Performed By: #### CVDTBH #### [facility] [address] [place] [address] Dr. Doreen BetancourtMAGNESIUMon 79-16-1765Opjedmvaz [Mass/Vol]2.2 mg/dLNormal1.8-2.4 The [facility] CenterComment on above:Performed By: #### MG, CMP #### [facility] [address] [place] [address] Dr. Doreen BetancourtPROF 14(COMP METB)on 63-69-4240Iethjtm [Mass/Vol]3.8 g/dLNormal 3.4-5.0The [facility] CenterComment on above:Performed By: #### CBC #### [facility] [address] [place] [address] Dr. Doreen BetancourtAlbumin/Globulin [Mass ratio]1.0 {ratio}NormalThe [facility] CenterComment on above:Performed By: #### CBC #### [facility] [address] [address] [address] Doreen Lopez [Catalytic activity/Vol]118 U/LCritically ickl98-910Iui [facility] CenterComment on above:Performed By: #### CBC #### [facility] [address] [address] [address] Doreen CarolinaT [Catalytic activity/Vol]57 U/ZGlzdrh13-63Rht [facility] CenterComment on above:Performed By: #### CBC #### [facility] [address] [address] [address] Doreen Cifuentes gap [Moles/Vol]13.4 mmol/LNormalThe [facility] Comment on above:Performed By: #### CBC #### [facility] [address] [address] [address] Doreen BetancourtAST [Catalytic activity/Vol]40 U/LCritically druq02-37Eyu [facility] CenterComment on above:Performed By: #### CBC #### [facility] [address] [address] [address] Doreen BetancourtBilirubin [Mass/Vol]0.4 mg/dLNormal0.2-1.0The [facility] Comment on above:Performed By: #### CBC #### [facility] [address] [address] [address] Doreen BetancourtCalcium [Mass/Vol]9.7 mg/dLNormal8.5-10.1[facility] Comment on above:Performed By: #### CBC #### [facility] [address] [address] [address] Doreen BetancourtChloride [Moles/Vol]103 mmol/HSplxtr44-337Vei [facility] Comment on above:Performed By: #### CBC #### [facility] [address] [address] [address] Doreen BetancourtCO2 [Moles/Vol]29.1 mmol/OKfekpv63.0-32.0The [facility] Comment on above:Performed By: #### CBC #### [facility] [address] [address] [address] Doreen BetancourtCreatinine [Mass/Vol]0.71 mg/dLNormal0.55-1.02The [facility] CenterComment on above:Performed By: #### CBC #### [facility] [address] [address] [address] Doreen GregoryGFR-AF NORTH KOREAN>60Normal>=60The [facility] CenterComment on above:Performed By: #### CBC #### [facility] [address] [address] [address] Doreen GregoryGFR-NON AF NORTH [place]OREAN>60Normal>=60The [facility] CenterComment on above:Performed By: #### CBC #### [facility] [address] [place] [address] Dr. Doreen BetancourtGlobulin (S) [Mass/Vol]3.7 g/dLNormalThe [facility] CenterComment on above:Performed By: #### CBC #### [facility] [address] [place] [address] Dr. Doreen BetancourtGlucose [Mass/Vol]106 mg/jKLuanvf50-880MehNationwide Children'S Hospital Comment on above:Performed By: #### CBC #### [facility] [address] [place] [address] Dr. Doreen BetancourtPotassium [Moles/Vol]4.5 mmol/LNormal3.5-5.1The [facility] Comment on above:Performed By: #### CBC #### [facility] [address] [place] [address] Dr. Doreen BetancourtProtein [Mass/Vol]7.5 g/dLNormal6.4-8.2The [facility] Comment on above:Performed By: #### CBC #### [facility] [address] [place] [address] Dr. Doreen BetancourtSodium [Moles/Vol]141 mmol/XWytkwo157-588Yvk [facility] Comment on above:Performed By: #### CBC #### [facility] [address] [place] [address] Dr. Doreen BetancourtUrea nitrogen [Mass/Vol]15.0 mg/dLNormal7.0-18.0[facility]'S HospitalComment on above:Performed By: #### CBC #### [facility] [address] [address] [address] Doreen BetancourtUrea nitrogen/Creatinine [Mass ratio]21.1 mg/mgNormalThe [facility] CenterComment on above:Performed By: #### CBC #### [facility] [address] [address] [address] Doreen BetancourtAlbumin [Mass/volume] in Serum or PlasmaOrdered By: Isaías Jordan on 37-63-0184Psdbkxo [Mass/Vol]3.8 g/dL3.2-5.5FMcKitrick HospitalCreatinine and Glomerular filtration rate.predicted panel (S/P/Bld)Ordered By: Isaías Jordan on 65-47-1886Ggvgddjgjc [Mass/Vol]0.64 mg/dL0.44-1.03Estimated glomerular filtration rate (GFR) non- AmericanOrdered By: Isaías Jordan on 07-11-2022 GFR/1.73 sq M.predicted among non-blacks MDRD (S/P/Bld) [Vol rate/Area]> 60 mL/MinGFR/1.73 sq M.predicted among non-blacks MDRD (S/P/Bld) [Vol rate/Area]Estimated glomerular filtration rate (GFR) non- AmericanGlobulin Calc (S) [Mass/Vol] Ordered By: Isaías Jordan on 63-38-2614Vnjruitx (S) [Mass/Vol]2.8 g/dL Laboratory - Chemistry and Chemistry - challengeOrdered By: Isaías Jordan on 11-17-3254Fwgbbtmam [Mass/Vol]2.2 mg/dL1.6-2.6FMcKitrick HospitalNo Panel InformationOrdered By: Isaías Jordan on 87-95-5095Kscezvxiw GFR ()> 60 mL/Min Comment on above:GFR estimated reference range: According to KDOQI guidelines, <60 ml/min/1.73m2 is sufficient todiagnose a patient with chronic kidney disease.Pharmacy Creatinine Clearance (Chem97.34 Protein [Mass/volume] in Serum or PlasmaOrdered By: Isaías Jordan on 81-71-8160Qvehjps [Mass/Vol]6.6 g/dL6.1-7.9[facility] Centererum or plasma alanine aminotransferase measurement without P-5'-P (enzymatic activiOrdered By: Isaías Jordan on 72-40-8045VPY No additional P-5'-P [Catalytic activity/Vol]71 U/N53-38JlhqxfvrmUniversity Hospitals Ahuja Medical Centererum or plasma albumin/globulin mass ratioOrdered By: Isaías Jordan on 49-17-9225Yxvaosj/Globulin [Mass ratio]1.4 {ratio}[facility] Centererum or plasma alkaline phosphatase measurement (enzymatic activity/volume)Ordered By: Isaías Jordan on 03-75-1597FPP [Catalytic activity/Vol]72 U/Z61-11RppihdlxhUniversity Hospitals Ahuja Medical Centererum or plasma anion gap determinationOrdered By: Isaías Jordan on 56-79-8900Dezpt gap [Moles/Vol]9.7 mmol/L6.0-15.0[facility] Centererum or plasma aspartate aminotransferase measurement (enzymatic activity/volume)Ordered By: Isaías Jordan on 88-75-2709GTR [Catalytic activity/Vol]56 U/L10-42 [facility] Centererum or plasma calcium measurement (mass/volume)Ordered By: Isaías Jordan on 26-25-3353Qmhysjd [Mass/Vol]9.1 mg/dL8.2-10.2FParkwood Hospitalerum or plasma chloride measurement (moles/volume)Ordered By: Isaías Jordan on 71-41-2551Ezbaohts [Moles/Vol]103 mmol/M68-598WzomfhuaiUniversity Hospitals Ahuja Medical Centererum or plasma glucose measurement (mass/volume)Ordered By: Isaías Jordan on 07-11-2022 Glucose [Mass/Vol]81 mg/hB64-693KxrpppcliComment on above:ADA recommended reference rangeRandom Glucose Reference Range is dependent on time and content of last meal. Glucose of more than 200 mg/dL in a nonstressed, ambulatory subject supports the diagnosisof Diabetes Mellitus.Serum or plasma potassium measurement (moles/volume)Ordered By: Isaías Jordan on 56-40-4739Onuwvlxhj [Moles/Vol]4.1 mmol/L3.5-5.1FParkwood Hospitalerum or plasma sodium measurement (moles/volume)Ordered By: Isaías Jordan on 59-11-5691Ulonun [Moles/Vol]134 mmol/O299-030YsmldoopwUniversity Hospitals Ahuja Medical Centererum or plasma total bilirubin measurement (mass/volume)Ordered By: Isaías Jordan on 56-15-2381Bkeoyeksm [Mass/Vol]0.8 mg/dL0.3-1.2FParkwood Hospitalerum or plasma total carbon dioxide measurement (moles/volume)Ordered By: Isaías Jordan on 76-89-4429CS1 [Moles/Vol]25.4 mmol/L22.0-30.0[facility] Centererum or plasma urea nitrogen measurement (mass/volume)Ordered By: Isaías Jordan on 87-51-8520Ywsu nitrogen [Mass/Vol]14 mg/dL9-23Albumin [Mass/volume] in Serum or PlasmaOrdered By: Isaías Jordan on 07-06-2022 Albumin [Mass/Vol]4.2 g/dL3.2-5.5FMcKitrick HospitalCBC AUTO DIFF on 34-43-5884BRIR #0.0 103/ulNormal0.0-0.1The [facility] CenterComment on above: Performed By: #### MG, CMP #### [facility] [address] [address] [address] Doreen Bullardphils/100 WBC (Bld)0.7 %Normal0.2-2.0The [facility] Comment on above:Performed By: #### MG, CMP #### [facility] [address] [address] [address] Doreen Everett #0.1 103/ulNormal0.0-0.7The [facility] CenterComment on above: Performed By: #### MG, CMP #### [facility] [address] [place] [address] Dr. Doreen Gregoryosinophils/100 WBC (Bld)1.1 %Normal0.9-7.0The [facility] on above:Performed By: #### MG, CMP #### [facility] [address] [place] [address] Dr. Doreen Gregoryrythrocyte distribution width (RBC) [Ratio]16.9 %Critically high 11.0-15.0The [facility] Centerment on above:Performed By: #### MG, CMP #### [facility] [address] [place] [address] Dr. Doreen BetancourtHematocrit (Bld) [Volume fraction]38.9 %Jzssux07.0-48.0The [facility] CenterComment on above:Performed By: #### MG, CMP #### [facility] [address] [place] [address] Dr. Doreen BetancourtHemoglobin (Bld) [Mass/Vol]14.2 g/iXMspdev34.0-16.0The [facility] Centerment on above:Performed By: #### MG, CMP #### [facility] [address] [place] [address] Dr. Doreen Shepherd #0.01 10e3/ulNormal0.00-0.03The [facility] Centerment on above:Performed By: #### MG, CMP #### [facility] [address] [place] [address] Dr. Doreen Shepherd %0.2 %Normal0.0-0.5The [facility] CenterComment on above: Performed By: #### MG, CMP #### [facility] [address] [place] [address] Dr. Doreen Kaiser #2.0 103/ulNormal1.2-3.8The [facility] CenterComhenry [facility] on above:Performed By: #### MG, CMP #### [facility] [address] [place] [address] Dr. Yilan ChangLymphocytes/100 WBC (Bld)43.2 %Gabofk00.5-60.0The [facility] CenterComment on above:Performed By: #### MG, CMP #### [facility] [address] [place] [address] Dr. Doreen DixonUAL DIFF REQNONormalThe [facility] CenterComment on above: Performed By: #### MG, CMP #### [facility] [address] [place] [address] Dr. Doreen Stearns (RBC) [Entitic mass]34.5 pgCritically high26.7-34.0The [facility] CenterComment on above:Performed By: #### MG, CMP #### [facility] [address] [place] [address] Dr. Doreen Stearns (RBC) [Mass/Vol]36.5 g/dLCritically high29.9-35.2The [facility] CenterComment on above:Performed By: #### MG, CMP #### [facility] [address] [place] [address] Dr. Doreen Alejo (RBC) [Entitic vol]94.6 eXHeuznf16.0-99.0The [facility] CenterComment on above:Performed By: #### MG, CMP #### [facility] [address] [place] [address] Dr. Doreen Cheema #0.4 103/ulNormal0.3-0.8The [facility] CenterComment on above:Performed By: #### MG, CMP #### [facility] [address] [place] [address] Dr. Doreen Ruizocytes/100 WBC (Bld)9.6 %Normal1.7-12.0The [facility] Comment on above:Performed By: #### MG, CMP #### [facility] [address] [place] [address] Dr. Doreen Brar #2.1 103/ulNormal1.4-6.5The [facility] CenterComment on above:Performed By: #### MG, CMP #### [facility] [address] [place] [address] Dr. Doreen BetancourtNeutrophils/100 WBC (Bld)45.2 %Habapn15.0-75.0[facility] on above:Performed By: #### MG, CMP #### [facility] [address] [place] [address] Dr. Doreen Goldsteinlet mean volume (Bld) [Entitic vol]9.8 fLNormal9.5-13.5The [facility] CenterComment on above:Performed By: #### MG, CMP #### [facility] [address] [place] [address] Dr. Doreen BetancourtPLT155 103/csQimahs828-572Nkn [facility] on above: Performed By: #### MG, CMP #### [facility] [address] [place] [address] Dr. Doreen BetancourtRBC4.11 106/ulCritically low4.20-5.40The [facility] on above:Performed By: #### MG, CMP #### [facility] [address] [place] [address] Dr. Doreen BetancourtWBC4.6 103/ulNormal4.0-11.0The [facility] on above: Performed By: #### MG, CMP #### [facility] [address] [place] [address] Dr. Doreen BetancourtCreatinine and Glomerular filtration rate.predicted panel (S/P/Bld)Ordered By: Isaías Jordan on 48-91-1038Kdnolwrpwg [Mass/Vol]0.43 mg/dL0.44-1.03Estimated glomerular filtration rate (GFR) non- AmericanOrdered By: Isaías Jordan on 07-06-2022 GFR/1.73 sq M.predicted among non-blacks MDRD (S/P/Bld) [Vol rate/Area]> 60 mL/MinGlobulin Calc (S) [Mass/Vol]Ordered By: Isaías Jordan on 25-84-2134Wmdhelrv (S) [Mass/Vol]2.6 g/dLLaboratory - Chemistry and Chemistry - challengeOrdered By: Isaías Jordan on 80-78-9382Qdbjdjlpi [Mass/Vol]2.8 mg/dL1.6-2.6FMcKitrick HospitalMAGNESIUMon 30-16-0161Ypegkstkt [Mass/Vol]2.0 mg/dLNormal 1.8-2.4The [facility] CenterComment on above:Performed By: #### CBC #### [facility] [address] [place] [address] Dr. Doreen Posada Panel InformationOrdered By: Isaías Jordan on 07-06-2022 Estimated GFR ()> 60 mL/Min Comment on above:GFR estimated reference range: According to KDOQI guidelines, <60 ml/min/1.73m2 is sufficient todiagnose a patient with chronic kidney disease.Pharmacy Creatinine Clearance (ChemN/[facility] PROF [facility](COMP METB)on 85-10-6760Tbrsndm [Mass/Vol]4.2 g/dLNormal3.4-5.0The [facility] CenterComment on above:Result Comment: preformed at [facility] [place]; ultrafuged specimenPerformed By: #### CBC #### [facility] [address] [place] [address] Dr. Doreen BetancourtAlbumin/Globulin [Mass ratio]1.6 {ratio}NormalThe [facility] CenterComment on above:Performed By: #### CBC #### [facility] [address] [address] [address] Doreen Lopez [Catalytic activity/Vol]102 U/RPnrawz17-353Djs [facility] CenterComment on above:Result Comment: preformed at [facility] [place]; ultrafuged specimen Performed By: #### CBC #### [facility] [address] [place] [address] Dr. Doreen Friend [Catalytic activity/Vol]38 U/SDnotqs02-38Edj [facility] CenterComment on above:Result Comment: preformed at [facility] [place]; ultrafuged specimen Performed By: #### CBC #### [facility] [address] [address] [address] Doreen BetancourtAnion gap [Moles/Vol]11.9 mmol/LNormalThe [facility] Comment on above:Performed By: #### CBC #### [facility] [address] [address] [address] Doreen BetancourtAST [Catalytic activity/Vol]49 U/LCritically hwwj69-47Krp [facility] CenterComment on above:Result Comment: preformed at [facility] [place]; ultrafuged specimenPerformed By: #### CBC #### [facility] [address] [address] [address] Doreen BetancourtBilirubin [Mass/Vol]0.7 mg/dLNormal0.2-1.0[facility] Comment on above:Result Comment: preformed at [facility] [place]; ultrafuged specimenPerformed By: #### CBC #### [facility] [address] [address] [address] Doreen BetancourtCalcium [Mass/Vol]9.5 mg/dLNormal8.5-10.1[facility] Comment on above:Result Comment: preformed at [facility] [place]; ultrafuged specimenPerformed By: #### CBC #### [facility] [address] [place] [address] Dr. Doreen BetancourtChloride [Moles/Vol]101 mmol/UNizgev20-798Bst [facility] Comment on above:Result Comment: preformed at [facility] [place]; ultrafuged specimenPerformed By: #### CBC #### [facility] [address] [place] [address] Dr. Doreen BetancourtCO2 [Moles/Vol]25.4 mmol/UFtqglz07.0-32.0The [facility] Comment on above:Result Comment: preformed at [facility] [place]; ultrafuged specimenPerformed By: #### CBC #### [facility] [address] [place] [address] Dr. Doreen BetancourtCreatinine [Mass/Vol]0.43 mg/dLCritically low0.55-1.02The [facility] CenterComment on above:Result Comment: preformed at [facility] [place]; ultrafuged specimenPerformed By: #### CBC #### [facility] [address] [address] [address] Doreen GregoryGFR-AF NORTH KOREAN>60Normal>=60The [facility] CenterComment on above:Performed By: #### CBC #### [facility] [address] [address] [address] Doreen GregoryGFR-NON AF NORTH KOREAN>60Normal>=60The [facility] CenterComment on above:Performed By: #### CBC #### [facility] [address] [address] [address] Doreen BetancourtGlobulin (S) [Mass/Vol]2.6 g/dLNormalThe [facility] CenterComment on above:Performed By: #### CBC #### [facility] [address] [place] [address] Dr. Doreen BetancourtGlucose [Mass/Vol]102 mg/hDWbuphe56-091Otf [facility] Comment on above:Result Comment: preformed at [facility] [place]; ultrafuged specimenPerformed By: #### CBC #### [facility] [address] [place] [address] Dr. Doreen BetancourtPotassium [Moles/Vol]5.3 mmol/LCritically high3.5-5.1[facility]S HospitalComment on above:Result Comment: preformed at [facility] [place]; ultrafuged specimen Performed By: #### CBC #### [facility] [address] [place] [address] Dr. Doreen BetancourtProtein [Mass/Vol]6.8 g/dLNormal6.4-8.2The [facility] Comment on above:Result Comment: preformed at [facility] [place]; ultrafuged specimenPerformed By: #### CBC #### [facility] [address] [place] [address] Dr. Doreen BetancourtSodium [Moles/Vol]133 mmol/LCritically wkr618-356Jmy [facility] CenterComment on above:Result Comment: preformed at [facility] [place]; ultrafuged specimen Performed By: #### CBC #### [facility] [address] [address] [address] Doreen BetancourtUrea nitrogen [Mass/Vol]18.0 mg/dLNormal7.0-18.0The [facility] CenterComment on above:Result Comment: preformed at [facility] [place]; ultrafuged specimen Performed By: #### CBC #### [facility] [address] [address] [address] Doreen BetancourtUrea nitrogen/Creatinine [Mass ratio]41.6 mg/mgNormalThe [facility] CenterComment on above:Performed By: #### CBC #### [facility] [address] [address] [address] Doreen BetancourtProtein [Mass/volume] in Serum or PlasmaOrdered By: Isaías Jordan on 99-52-6457Kymtdzx [Mass/Vol]6.8 g/dL6.1-7.9[facility] Centererum or plasma alanine aminotransferase measurement without P-5'-P (enzymatic activiOrdered By: Isaías Jordan on 42-41-0674YUF No additional P-5'-P [Catalytic activity/Vol]38 U/C47-38FhehrgsnyUniversity Hospitals Ahuja Medical Centererum or plasma albumin/globulin mass ratioOrdered By: Isaías Jordan on 24-62-9570Djfdlpl/Globulin [Mass ratio]1.6 {ratio}[facility] Centererum or plasma alkaline phosphatase measurement (enzymatic activity/volume)Ordered By: Isaías Jordan on 16-82-5259FHI [Catalytic activity/Vol]102 U/C53-17BpgdudasrUniversity Hospitals Ahuja Medical Centererum or plasma anion gap determinationOrdered By: Isaías Jordan on 60-99-3595Cfjtz gap [Moles/Vol]11.9 mmol/L6.0-15.0[facility] Centererum or plasma aspartate aminotransferase measurement (enzymatic activity/volume)Ordered By: Isaías Jordan on 59-62-5405HNK [Catalytic activity/Vol]49 U/A48-19GubyoeuevUniversity Hospitals Ahuja Medical Centererum or plasma calcium measurement (mass/volume)Ordered By: Isaías Jordan on 16-38-4904Axxdeqa [Mass/Vol]9.5 mg/dL8.2-10.2FParkwood Hospitalerum or plasma chloride measurement (moles/volume) Ordered By: Isaías Jordan on 22-21-9935Dsszpqxn [Moles/Vol]101 mmol/L95-114 [facility] Centererum or plasma glucose measurement (mass/volume)Ordered By: Isaías Jodran on 88-70-8805Miwnzxf [Mass/Vol]102 mg/gF01-035RusgrjombComment on above:ADA recommended reference rangeRandom Glucose Reference Range is dependent on time and content of last meal. Glucose of more than 200 mg/dL in a nonstressed, ambulatory subject supports the diagnosisof Diabetes Mellitus.Serum or plasma potassium measurement (moles/volume)Ordered By: Isaías Jordan on 66-95-6704Mcootwsvw [Moles/Vol]5.3 mmol/L3.5-5.1FParkwood Hospitalerum or plasma sodium measurement (moles/volume)Ordered By: Isaías Jordan on 07-06-2022 Sodium [Moles/Vol]133 mmol/G168-467WxqzlubgyUniversity Hospitals Ahuja Medical Centererum or plasma total bilirubin measurement (mass/volume)Ordered By: Isaías Jordan on 90-06-6131Mxxzkavzu [Mass/Vol]0.7 mg/dL0.3-1.2FMcKitrick Hospital Serum or plasma total carbon dioxide measurement (moles/volume)Ordered By: Isaías Jordan on 76-12-0825EA4 [Moles/Vol]25.4 mmol/L22.0-30.0[facility] Centererum or plasma urea nitrogen measurement (mass/volume) Ordered By: Iasías Jordan on 06-19-4092Tvwh nitrogen [Mass/Vol]18 mg/dL9-23 CBC AUTO DIFFon 81-90-1499BTWC #0.0 103/ul Normal0.0-0.1The [facility] CenterComment on above:Performed By: #### CBC #### [facility] [address] [address] [address] Doreen BetancourtBasophils/100 WBC (Bld)0.5 %Normal0.2-2.0The [facility] Comment on above:Performed By: #### CBC #### [facility] [address] [address] [address] Doreen Everett #0.1 103/ulNormal0.0-0.7The [facility] CenterComment on above: Performed By: #### CBC #### [facility] [address] [place] [address] Dr. Doreen Gregoryosinophils/100 WBC (Bld)1.3 %Normal0.9-7.0The [facility] Comment on above:Performed By: #### CBC #### [facility] [address] [place] [address] Dr. Doreen Gregoryrythrocyte distribution width (RBC) [Ratio]15.3 %Critically high 11.0-15.0The [facility] Centerment on above:Performed By: #### CBC #### [facility] [address] [place] [address] Dr. Doreen BetancourtHematocrit (Bld) [Volume fraction]38.7 %Cwgmlr92.0-48.0The [facility] CenterComment on above:Performed By: #### CBC #### [facility] [address] [place] [address] Dr. Doreen BetancourtHemoglobin (Bld) [Mass/Vol]12.5 g/kIXlvrjr15.0-16.0The [facility] CenterComment on above:Performed By: #### CBC #### [facility] [address] [place] [address] Dr. Doreen Shepherd #0.01 10e3/ulNormal0.00-0.03The [facility] CenterComment on above:Performed By: #### CBC #### [facility] [address] [place] [address] Dr. Doreen Shepherd %0.3 %Normal0.0-0.5The [facility] CenterComment on above: Performed By: #### CBC #### [facility] [address] [place] [address] Dr. Doreen Kaiser #1.8 103/ulNormal1.2-3.8The [facility] CenterComment on above:Performed By: #### CBC #### [facility] [address] [place] [address] Dr. Doreen Nunezmphocytes/100 WBC (Bld)46.0 %Pvpuma71.5-60.0The [facility] CenterComment on above:Performed By: #### CBC #### [facility] [address] [place] [address] Dr. Doreen DixonUAL DIFF REQNONormalThe [facility] CenterComment on above: Performed By: #### CBC #### [facility] [address] [place] [address] Dr. Doreen Stearns (RBC) [Entitic mass]30.0 bbXhqglg39.7-34.0The [facility] CenterComment on above:Performed By: #### CBC #### [facility] [address] [place] [address] Dr. Doreen Stearns (RBC) [Mass/Vol]32.3 g/rMLarezo30.9-35.2The [facility] CenterComment on above:Performed By: #### CBC #### [facility] [address] [place] [address] Dr. Doreen Stearns (RBC) [Entitic vol]93.0 uTTbvmyk51.0-99.0The [facility] CenterComment on above:Performed By: #### CBC #### [facility] [address] [place] [address] Dr. Doreen Cheema #0.4 103/ulNormal0.3-0.8The [facility] CenterComment on above:Performed By: #### CBC #### [facility] [address] [place] [address] Dr. Doreen Ruizocytes/100 WBC (Bld)9.5 %Normal1.7-12.0The [facility] on above:Performed By: #### CBC #### [facility] [address] [place] [address] Dr. Doreen Brar #1.7 103/ulNormal1.4-6.5The [facility] CenterComment on above:Performed By: #### CBC #### [facility] [address] [place] [address] Dr. Doreen BetancourtNeutrophils/100 WBC (Bld)42.4 %Critically low43.0-75.0The [facility] on above:Performed By: #### CBC #### [facility] [address] [place] [address] Dr. Doreen BetancourtPlatelet mean volume (Bld) [Entitic vol]9.9 fLNormal9.5-13.5The [facility] CenterComhenry [facility]d [facility] on above:Performed By: #### CBC #### [facility] [address] [place] [address] Dr. Doreen BetancourtPLT178 103/ukPybqzp516-274Yza [facility] on above: Performed By: #### CBC #### [facility] [address] [place] [address] Dr. Doreen BetancourtRBC4.16 106/ulCritically low4.20-5.40The [facility] on above:Performed By: #### CBC #### [facility] [address] [place] [address] Dr. Doreen BetancourtWBC4.0 103/ulNormal4.0-11.0The [facility] on above: Performed By: #### CBC #### [facility] [address] [place] [address] Dr. Doreen BetancourtMAGNESIUMon 01-00-1588Lemjtgtpo [Mass/Vol]1.9 mg/dLNormal1.8-2.4 The [facility] CenterComhenry [facility]d jack[facility] on above:Performed By: #### MG, CMP #### [facility] [address] [place] [address] Dr. Doreen BetancourtPROJasen 14(COMP METB)on 17-88-8989Rtcwifr [Mass/Vol]3.7 g/dLNormal 3.4-5.0The [facility] on above:Performed By: #### MG, CMP #### [facility] [address] [address] [address] Doreen BetancourtAlbumin/Globulin [Mass ratio]1.1 {ratio}NormalThe [facility] CenterComment on above:Performed By: #### MG, CMP #### [facility] [address] [address] [address] Doreen CarolinaP [Catalytic activity/Vol]125 U/LCritically brlx33-264Mua [facility] CenterComment on above:Performed By: #### MG, CMP #### [facility] [address] [place] [address] Dr. Doreen CarolinaT [Catalytic activity/Vol]16 U/VOmqnwu26-06Yfw [facility] CenterComment on above:Performed By: #### MG, CMP #### [facility] [address] [place] [address] Dr. Doreen Sharifon gap [Moles/Vol]8.8 mmol/LNormalThe [facility] CenterComment on above:Performed By: #### MG, CMP #### [facility] [address] [place] [address] Dr. Doreen BetancourtAST [Catalytic activity/Vol]5 U/LCritically vro05-28Nnf [facility] CenterComment on above:Performed By: #### MG, CMP #### [facility] [address] [place] [address] Dr. Doreen BetancourtBilirubin [Mass/Vol]0.3 mg/dLNormal0.2-1.0The [facility] Comment on above:Performed By: #### MG, CMP #### [facility] [address] [place] [address] Dr. Doreen BetancourtCalcium [Mass/Vol]8.8 mg/dLNormal8.5-10.1The [facility] Comment on above:Performed By: #### MG, CMP #### [facility] [address] [place] [address] Dr. Doreen BetancourtChloride [Moles/Vol]104 mmol/JAzbkxk73-120Pdh [facility] Comment on above:Performed By: #### MG, CMP #### [facility] [address] [address] [address] Doreen BetancourtCO2 [Moles/Vol]29.5 mmol/CEreblu49.0-32.0The [facility] Comment on above:Performed By: #### MG, CMP #### [facility] [address] [place] [address] Dr. Doreen BetancourtCreatinine [Mass/Vol]0.75 mg/dLNormal0.55-1.02The [facility] CenterComment on above:Performed By: #### MG, CMP #### [facility] [address] [place] [address] Dr. Doreen GregoryGFR-AF NORTH KOREAN>60Normal>=60The [facility] CenterComment on above:Performed By: #### MG, CMP #### [facility] [address] [place] [address] Dr. Doreen GregoryGFR-NON AF [place]ORE[place]>60Normal>=60The [facility] CenterComment on above:Performed By: #### MG, CMP #### [facility] [address] [place] [address] Dr. Doreen BetancourtGlobulin (S) [Mass/Vol]3.3 g/dLNormalThe [facility] CenterComment on above:Performed By: #### MG, CMP #### [facility] [address] [place] [address] Dr. Doreen BetancourtGlucose [Mass/Vol]110 mg/dLCritically mjfb70-374Kqi [facility] CenterComment on above:Performed By: #### MG, CMP #### [facility] [address] [place] [address] Dr. Doreen BetancourtPotassium [Moles/Vol]4.3 mmol/LNormal3.5-5.1The [facility] Comment on above:Performed By: #### MG, CMP #### [facility] [address] [place] [address] Dr. Doreen BetancourtProtein [Mass/Vol]7.0 g/dLNormal6.4-8.2The [facility] Comment on above:Performed By: #### MG, CMP #### [facility] [address] [address] [address] Doreen Maderadium [Moles/Vol]138 mmol/OSivdow603-159Pvn [facility] Comment on above:Performed By: #### MG, CMP #### [facility] [address] [place] [address] Dr. Doreen Copeland nitrogen [Mass/Vol]11.0 mg/dLNormal7.0-18.0The [facility] CenterComment on above:Performed By: #### MG, CMP #### [facility] [address] [place] [address] Dr. Doreen BetancourtUrea nitrogen/Creatinine [Mass ratio]14.7 mg/mgNormalThe [facility] CenterComment on above:Performed By: #### MG, CMP #### [facility] [address] [place] [address] Dr. Doreen Keller AUTO DIFFon 83-59-5459PNHW #0.0 103/ulNormal0.0-0.1The [facility] CenterComment on above:Performed By: #### MG, CMP #### [facility] [address] [place] [address] Dr. Doreen BetancourtBasophils/100 WBC (Bld)0.8 %Normal0.2-2.0[facility] Comment on above:Performed By: #### MG, CMP #### [facility] [address] [place] [address] Dr. Doreen Everett #0.1 103/ulNormal0.0-0.7The [facility] CenterComment on above: Performed By: #### MG, CMP #### [facility] [address] [place] [address] Dr. Doreen Gregoryosinophils/100 WBC (Bld)2.3 %Normal0.9-7.0The [facility] Comment on above:Performed By: #### MG, CMP #### [facility] [address] [place] [address] Dr. Doreen Gregoryrythrocyte distribution width (RBC) [Ratio]14.5 %Flcqfm98.0-15.0 The [facility] CenterComment on above:Performed By: #### MG, CMP #### [facility] [address] [place] [address] Dr. Doreen Espinozaatocrit (Bld) [Volume fraction]38.8 %Otbcjy45.0-48.0The [facility] CenterComment on above:Performed By: #### MG, CMP #### [facility] [address] [place] [address] Dr. Doreen BetancourtHemoglobin (Bld) [Mass/Vol]12.6 g/oMGwkjss96.0-16.0The [facility] CenterComment on above:Performed By: #### MG, CMP #### [facility] [address] [place] [address] Dr. Doreen Shepherd #0.00 10e3/ulNormal0.00-0.03The [facility] CenterComhenry [facility] on above:Performed By: #### MG, CMP #### [facility] [address] [place] [address] Dr. Doreen Shepherd %0.0 %Normal0.0-0.5The [facility] CenterComment on above: Performed By: #### MG, CMP #### [facility] [address] [place] [address] Dr. Doreen Kaiser #1.9 103/ulNormal1.2-3.8The [facility] CenterComment on above:Performed By: #### MG, CMP #### [facility] [address] [place] [address] Dr. Doreen Camachohocytes/100 WBC (Bld)46.7 %Gciisc19.5-60.0The [facility] CenterComment on above:Performed By: #### MG, CMP #### [facility] [address] [place] [address] Dr. Doreen DixonUAL DIFF REQNONormalThe [facility] CenterComment on above: Performed By: #### MG, CMP #### [facility] [address] [place] [address] Dr. Doreen Tapia (RBC) [Entitic mass]30.3 dzXotuzl46.7-34.0The [facility] CenterComment on above:Performed By: #### MG, CMP #### [facility] [address] [place] [address] Dr. Doreen Stearns (RBC) [Mass/Vol]32.5 g/aRLmwnfw74.9-35.2The [facility] CenterComment on above:Performed By: #### MG, CMP #### [facility] [address] [place] [address] Dr. Doreen Stearns (RBC) [Entitic vol]93.3 hBDnqbrw19.0-99.0The [facility] CenterComment on above:Performed By: #### MG, CMP #### [facility] [address] [place] [address] Dr. Doreen Cheema #0.4 103/ulNormal0.3-0.8The [facility] CenterComment on above:Performed By: #### MG, CMP #### [facility] [address] [place] [address] Dr. Doreen Ruizocytes/100 WBC (Bld)11.1 %Normal1.7-12.0The [facility] Comment on above:Performed By: #### MG, CMP #### [facility] [address] [place] [address] Dr. Doreen Brar #1.6 103/ulNormal1.4-6.5The [facility] CenterComment on above:Performed By: #### MG, CMP #### [facility] [address] [place] [address] Dr. Doreen Wrenutrophils/100 WBC (Bld)39.1 %Critically low43.0-75.0The [facility] CenterComment on above:Performed By: #### MG, CMP #### [facility] [address] [place] [address] Dr. Doreen Basilio mean volume (Bld) [Entitic vol]9.9 fLNormal9.5-13.5The [facility] CenterComment on above:Performed By: #### MG, CMP #### [facility] [address] [place] [address] Dr. Doreen BetancourtPLT220 103/hgTmcvth553-000Mud [facility] CenterComment on above: Performed By: #### MG, CMP #### [facility] [address] [place] [address] Dr. Doreen BetancourtRBC4.16 106/ulCritically low4.20-5.40The [facility] CenterComment on above:Performed By: #### MG, CMP #### [facility] [address] [place] [address] Dr. Doreen BetancourtWBC4.0 103/ulNormal4.0-11.0The [facility] CenterComment on above: Performed By: #### MG, CMP #### [facility] [address] [place] [address] Dr. Doreen BetancourtMAGNESIUMon [id number] [Mass/Vol]2.2 mg/dLNormal1.8-2.4 The [facility] CenterComment on above:Performed By: #### CVDTBH #### [facility] [address] [place] [address] Dr. Doreen Silva 14(COMP METB)on 68-18-2065Rsphctj [Mass/Vol]3.9 g/dLNormal 3.4-5.0The [facility] CenterComment on above:Performed By: #### CVDTBH #### [facility] [address] [place] [address] Dr. Doreen BetancourtAlbumin/Globulin [Mass ratio]1.1 {ratio}NormalThe [facility] CenterComment on above:Performed By: #### CVDTBH #### [facility] [address] [place] [address] Dr. Doreen Lopez [Catalytic activity/Vol]100 U/BPfvrkp96-517Kli [facility] CenterComment on above:Performed By: #### CVDTBH #### [facility] [address] [place] [address] Dr. Yilan ChangALT [Catalytic activity/Vol]19 U/JYhqwhp99-11Ejq [facility] CenterComment on above:Performed By: #### CVDTBH #### [facility] [address] [place] [address] Dr. Doreen Sharifon gap [Moles/Vol]6.9 mmol/LNormalThe [facility] CenterComment on above:Performed By: #### CVDTBH #### [facility] [address] [place] [address] Dr. Doreen BetancourtAST [Catalytic activity/Vol]14 U/LCritically jei79-97Whc [facility] CenterComment on above:Performed By: #### CVDTBH #### [facility] [address] [place] [address] Dr. Doreen BetancourtBilirubin [Mass/Vol]0.3 mg/dLNormal0.2-1.0The [facility] Comment on above:Performed By: #### CVDTBH #### [facility] [address] [place] [address] Dr. Doreen BetancourtCalcium [Mass/Vol]9.6 mg/dLNormal8.5-10.1The [facility] Comment on above:Performed By: #### CVDTBH #### [facility] [address] [place] [address] Dr. Doreen BetancourtChloride [Moles/Vol]105 mmol/FPvatac89-801Srb [facility] Comment on above:Performed By: #### CVDTBH #### [facility] [address] [place] [address] Dr. Doreen BetancourtCO2 [Moles/Vol]32.2 mmol/LCritically high21.0-32.0The [facility] CenterComment on above:Performed By: #### CVDTBH #### [facility] [address] [place] [address] Dr. Doreen BetancourtCreatinine [Mass/Vol]0.69 mg/dLNormal0.55-1.02The [facility] CenterComment on above:Performed By: #### CVDTBH #### [facility] [address] [address] [address] Doreen GregoryGFR-AF NORTH KOREAN>60Normal>=60The [facility] CenterComment on above:Performed By: #### CVDTBH #### [facility] [address] [address] [address] Doreen GregoryGFR-NON AF [place]>60Normal>=60The [facility] CenterComment on above:Performed By: #### CVDTBH #### [facility] [address] [address] [address] Doreen BetancourtGlobulin (S) [Mass/Vol]3.6 g/dLNormalThe [facility] CenterComment on above:Performed By: #### CVDTBH #### [facility] [address] [place] [address] Dr. Doreen BetancourtGlucose [Mass/Vol]103 mg/cVTaeavq37-090NsaNationwide Children'S Hospital Comment on above:Performed By: #### CVDTBH #### [facility] [address] [place] [address] Dr. Doreen BetancourtPotassium [Moles/Vol]5.1 mmol/LNormal3.5-5.1The [facility] Comment on above:Performed By: #### CVDTBH #### [facility] [address] [place] [address] Dr. Doreen BetancourtProtein [Mass/Vol]7.5 g/dLNormal6.4-8.2The [facility] Comment on above:Performed By: #### CVDTBH #### [facility] [address] [place] [address] Dr. Doreen BetancourtSodium [Moles/Vol]139 mmol/INwbfkl612-994Lek [facility] Comment on above:Performed By: #### CVDTBH #### [facility] [address] [place] [address] Dr. Doreen BetancourtUrea nitrogen [Mass/Vol]13.0 mg/dLNormal7.0-18.0The [facility] CenterComment on above:Performed By: #### CVDTBH #### [facility] [address] [place] [address] Dr. Doreen BetancourtUrea nitrogen/Creatinine [Mass ratio]18.8 mg/mgNoalThe [facility] CenterComment on above:Performed By: #### CVDTBH #### [facility] [address] [place] [address] Dr. Doreen Keller AUTO DIFFon [id number] #0.0 103/ulNormal0.0-0.1The [facility] CenterComment on above:Performed By: #### CBC #### [facility] [address] [place] [address] Dr. Doreen BetancourtBasophils/100 WBC (Bld)0.7 %Normal0.2-2.0The [facility] Comment on above:Performed By: #### CBC #### [facility] [address] [place] [address] Dr. Doreen GregoryO #0.1 103/ulNormal0.0-0.7The [facility] CenterComment on above: Performed By: #### CBC #### [facility] [address] [place] [address] Dr. Doreen Gregoryosinophils/100 WBC (Bld)2.0 %Normal0.9-7.0The [facility] Comment on above:Performed By: #### CBC #### [facility] [address] [place] [address] Dr. Doreen Gregoryrythrocyte distribution width (RBC) [Ratio]13.9 %Ddsxag22.0-15.0 The [facility] CenterComment on above:Performed By: #### CBC #### [facility] [address] [place] [address] Dr. Doreen BetancourtHematocrit (Bld) [Volume fraction]41.2 %Ccjvkf00.0-48.0The [facility] CenterComment on above:Performed By: #### CBC #### [facility] [address] [place] [address] Dr. Doreen BetancourtHemoglobin (Bld) [Mass/Vol]13.2 g/uGMybnlm41.0-16.0The [facility] CenterComment on above:Performed By: #### CBC #### [facility] [address] [place] [address] Dr. Doreen Shepherd #0.01 10e3/ulNormal0.00-0.03The [facility] CenterComment on above:Performed By: #### CBC #### [facility] [address] [place] [address] Dr. Doreen Shepherd %0.2 %Normal0.0-0.5The [facility] CenterComment on above: Performed By: #### CBC #### [facility] [address] [place] [address] Dr. Doreen Kaiser #1.9 103/ulNormal1.2-3.8The [facility] CenterComment on above:Performed By: #### CBC #### [facility] [address] [place] [address] Dr. Doreen Camachohocytes/100 WBC (Bld)41.0 %Rtxjkq91.5-60.0The [facility] CenterComment on above:Performed By: #### CBC #### [facility] [address] [place] [address] Dr. Doreen DixonAVITA [facility] DIFF REQNONormalThe [facility] CenterComment on above: Performed By: #### CBC #### [facility] [address] [place] [address] Dr. Doreen Stearns (RBC) [Entitic mass]29.3 guAvhjqd78.7-34.0The [facility] CenterComment on above:Performed By: #### CBC #### [facility] [address] [place] [address] Dr. Doreen Stearns (RBC) [Mass/Vol]32.0 g/qHKtngcn56.9-35.2The [facility] CenterComment on above:Performed By: #### CBC #### [facility] [address] [place] [address] Dr. Doreen Stearns (RBC) [Entitic vol]91.6 bCRignbg15.0-99.0The [facility] CenterComment on above:Performed By: #### CBC #### [facility] [address] [place] [address] Dr. Doreen Cheema #0.1 103/ulCritically low0.3-0.8The [facility] CenterComment on above:Performed By: #### CBC #### [facility] [address] [place] [address] Dr. Doreen Ruizocytes/100 WBC (Bld)1.5 %Critically low1.7-12.0The [facility] CenterComment on above:Performed By: #### CBC #### [facility] [address] [place] [address] Dr. Doreen Brar #2.5 103/ulNormal1.4-6.5The [facility] CenterComment on above:Performed By: #### CBC #### [facility] [address] [place] [address] Dr. Doreen Wrenutrophils/100 WBC (Bld)54.6 %Xdkyhd79.0-75.0The [facility] CenterComment on above:Performed By: #### CBC #### [facility] [address] [place] [address] Dr. Doreen Basilio mean volume (Bld) [Entitic vol]10.5 fLNormal9.5-13.5The [facility] CenterComment on above:Performed By: #### CBC #### [facility] [address] [place] [address] Dr. Doreen BetancourtPLT270 103/ryBdviyg607-385Nnl [facility] CenterComment on above: Performed By: #### CBC #### [facility] [address] [place] [address] Dr. Doreen BetancourtRBC4.50 106/ulNormal4.20-5.40The [facility] CenterComment on above:Performed By: #### CBC #### [facility] [address] [place] [address] Dr. Doreen BetancourtWBC4.6 103/ulNormal4.0-11.0The [facility] CenterComment on above: Performed By: #### CBC #### [facility] [address] [place] [address] Dr. Doreen Silva 14(COMP METB)on [id number] [Mass/Vol]3.9 g/dLNormal 3.4-5.0The [facility] CenterComment on above:Performed By: #### CBC #### [facility] [address] [place] [address] Dr. Doreen BetancourtAlbumin/Globulin [Mass ratio]1.0 {ratio}NormalThe [facility] CenterComment on above:Performed By: #### CBC #### [facility] [address] [place] [address] Dr. Doreen Lopez [Catalytic activity/Vol]83 U/BQgtpbn22-737Swo [facility] CenterComment on above:Performed By: #### CBC #### [facility] [address] [place] [address] Dr. Doreen Friend [Catalytic activity/Vol]22 U/PSvcsvr40-79Ujb [facility] CenterComment on above:Performed By: #### CBC #### [facility] [address] [place] [address] Dr. Doreen Cifuentes gap [Moles/Vol]12.6 mmol/LNormalThe [facility] Comment on above:Performed By: #### CBC #### [facility] [address] [place] [address] [Catalytic activity/Vol]16 U/MSliznv60-59Ktq [facility] Centerment on above:Performed By: #### CBC #### [facility] [address] [place] [address] Dr. Doreen BetancourtBilirubin [Mass/Vol]0.6 mg/dLNormal0.2-1.0The [facility] Comment on above:Performed By: #### CBC #### [facility] [address] [place] [address] Dr. Doreen BetancourtCalcium [Mass/Vol]9.4 mg/dLNormal8.5-10.1[facility] Comment on above:Performed By: #### CBC #### [facility] [address] [address] [address] Doreen BetancourtChloride [Moles/Vol]101 mmol/ZFaepxi70-540Eld [facility] Comment on above:Performed By: #### CBC #### [facility] [address] [address] [address] Doreen BetancourtCO2 [Moles/Vol]25.9 mmol/PHkijgq38.0-32.0The [facility] Comment on above:Performed By: #### CBC #### [facility] [address] [address] [address] Doreen BetancourtCreatinine [Mass/Vol]0.64 mg/dLNormal0.55-1.02[facility] HospitalComment on above:Performed By: #### CBC #### [facility] [address] [address] [address] Doreen GregoryGFR-AF NORTH [place]ORE[place]>60Normal>=60The [facility] CenterComment on above:Performed By: #### CBC #### [facility] [address] [address] [address] Doreen GregoryGFR-NON AF [place]>60Normal>=60The [facility] CenterComment on above:Performed By: #### CBC #### [facility] [address] [address] [address] Doreen BetancourtGlobulin (S) [Mass/Vol]3.9 g/dLNormalThe [facility] CenterComment on above:Performed By: #### CBC #### [facility] [address] [address] [address] Doreen BetancourtGlucose [Mass/Vol]135 mg/dLCritically qwjy73-035Xdb [facility] CenterComment on above:Performed By: #### CBC #### [facility] [address] [address] [address] Doreen BetancourtPotassium [Moles/Vol]4.5 mmol/LNormal3.5-5.1[facility] Comment on above:Performed By: #### CBC #### [facility] [address] [address] [address] Doreen BetancourtProtein [Mass/Vol]7.8 g/dLNormal6.4-8.2The [facility] Comment on above:Performed By: #### CBC #### [facility] [address] [place] [address] Dr. Doreen BetancourtSodium [Moles/Vol]135 mmol/LCritically ybl977-781Bdx [facility] CenterComment on above:Performed By: #### CBC #### [facility] [address] [place] [address] Dr. Doreen BetancourtUrea nitrogen [Mass/Vol]15.0 mg/dLNormal7.0-18.0The [facility] CenterComment on above:Performed By: #### CBC #### [facility] [address] [place] [address] Dr. Doreen BetancourtUrea nitrogen/Creatinine [Mass ratio]23.4 mg/mgNormalThe [facility] CenterComment on above:Performed By: #### CBC #### [facility] [address] [place] [address] Dr. Doreen Keller AUTO DIFFon [id number] #0.0 103/ulNormal0.0-0.1The [facility] CenterComment on above:Performed By: #### CVDTBH #### [facility] [address] [place] [address] Dr. Doreen BetancourtBasophils/100 WBC (Bld)0.8 %Normal0.2-2.0The [facility] Comment on above:Performed By: #### CVDTBH #### [facility] [address] [place] [address] Dr. Doreen Everett #0.1 103/ulNormal0.0-0.7The [facility] CenterComment on above: Performed By: #### CVDTBH #### [facility] [address] [place] [address] Dr. Doreen Gregoryosinophils/100 WBC (Bld)2.7 %Normal0.9-7.0The [facility] Comment on above:Performed By: #### CVDTBH #### [facility] [address] [place] [address] Dr. Doreen Gregoryrythrocyte distribution width (RBC) [Ratio]13.9 %Muhmox58.0-15.0 The [facility] CenterComment on above:Performed By: #### CVDTBH #### [facility] [address] [place] [address] Dr. Doreen BetancourtHematocrit (Bld) [Volume fraction]40.9 %Rybxki78.0-48.0The [facility] CenterComment on above:Performed By: #### CVDTBH #### [facility] [address] [place] [address] Dr. Doreen BetancourtHemoglobin (Bld) [Mass/Vol]13.1 g/oONkiaaa95.0-16.0The [facility] CenterComment on above:Performed By: #### CVDTBH #### [facility] [address] [place] [address] Dr. Doreen Shepherd #0.01 10e3/ulNormal0.00-0.03The [facility] CenterComment on above:Performed By: #### CVDTBH #### [facility] [address] [place] [address] Dr. Doreen Shepherd %0.2 %Normal0.0-0.5The [facility] CenterComment on above: Performed By: #### CVDTBH #### [facility] [address] [place] [address] Dr. Doreen Kaiser #1.9 103/ulNormal1.2-3.8The [facility] CenterComment on above:Performed By: #### CVDTBH #### [facility] [address] [place] [address] Dr. Doreen Nunezmphocytes/100 WBC (Bld)39.1 %Dolbjg64.5-60.0The [facility] CenterComment on above:Performed By: #### CVDTB #### [facility] [address] [place] [address] Dr. Doreen DixonUAL DIFF REQNONormalThe [facility] CenterComment on above: Performed By: #### CVDTBH #### [facility] [address] [place] [address] Dr. Doreen Stearns (RBC) [Entitic mass]29.6 suEfylbj75.7-34.0The [facility] HospitalComment on above:Performed By: #### CVDTBH #### [facility] [address] [place] [address] Dr. Doreen Stearns (RBC) [Mass/Vol]32.0 g/iXUistpp61.9-35.2The [facility] CenterComment on above:Performed By: #### CVDTBH #### [facility] [address] [place] [address] Dr. Doreen Stearns (RBC) [Entitic vol]92.3 vRWzxdgs32.0-99.0The [facility] CenterComment on above:Performed By: #### CVDTBH #### [facility] [address] [place] [address] Dr. Doreen Cheema #0.4 103/ulNormal0.3-0.8The [facility] CenterComment on above:Performed By: #### CVDTBH #### [facility] [address] [place] [address] Dr. Doreen Ruizocytes/100 WBC (Bld)7.6 %Normal1.7-12.0The [facility] Comment on above:Performed By: #### CVDTBH #### [facility] [address] [place] [address] Dr. Doreen Brar #2.4 103/ulNormal1.4-6.5The [facility] CenterComment on above:Performed By: #### CVDTBH #### [facility] [address] [place] [address] Dr. Doreen Wrenutrophils/100 WBC (Bld)49.6 %Uktrkb69.0-75.0The [facility] CenterComment on above:Performed By: #### CVDTBH #### [facility] [address] [place] [address] Dr. Doreen Goldsteinlet mean volume (Bld) [Entitic vol]10.3 fLNormal9.5-13.5The [facility] CenterComment on above:Performed By: #### CVDTBH #### [facility] [address] [place] [address] Dr. Doreen BetancourtPLT274 103/maSfhfdg191-879Yvp [facility] CenterComment on above: Performed By: #### CVDTBH #### [facility] [address] [place] [address] Dr. Doreen BetancourtRBC4.43 106/ulNormal4.20-5.40The [facility] CenterComment on above:Performed By: #### CVDTBH #### [facility] [address] [place] [address] Dr. Doreen BetancourtWBC4.9 103/ulNormal4.0-11.0The [facility] CenterComment on above: Performed By: #### CVDTBH #### [facility] [address] [place] [address] Dr. Doreen BetancourtMAGNESIUMon 70-96-2904Fzammrqoe [Mass/Vol]2.1 mg/dLNormal1.8-2.4 The [facility] CenterComment on above:Performed By: #### MG, CMP #### [facility] [address] [place] [address] Dr. Doreen BetancourtPREG HCG QUALon 78-83-0580FOWTQYDVB, QUALNegativeNormalNEGATIVE The [facility] CenterComment on above:Performed By: #### MG, CMP #### [facility] [address] [place] [address] Dr. Doreen Silva 14(COMP METB)on 34-06-9325Uzinxrs [Mass/Vol]3.9 g/dLNormal 3.4-5.0The [facility] CenterComment on above:Performed By: #### MG, CMP #### [facility] [address] [address] [address] Doreen BetancourtAlbumin/Globulin [Mass ratio]1.1 {ratio}NormalThe [facility] CenterComment on above:Performed By: #### MG, CMP #### [facility] [address] [address] [address] Doreen CarolinaP [Catalytic activity/Vol]81 U/KUoomae20-073Dla [facility] CenterComment on above:Performed By: #### MG, CMP #### [facility] [address] [address] [address] Doreen CarolinaT [Catalytic activity/Vol]27 U/HYhgcie79-27Ora [facility] CenterComment on above:Performed By: #### MG, CMP #### [facility] [address] [address] [address] Doreen BetancourtAnion gap [Moles/Vol]8.6 mmol/LNormalThe [facility] CenterComment on above:Performed By: #### MG, CMP #### [facility] [address] [address] [address] Doreen BetancourtAST [Catalytic activity/Vol]23 U/JKqupbw91-32Fsk [facility] CenterComment on above:Performed By: #### MG, CMP #### [facility] [address] [address] [address] Doreen BetancourtBilirubin [Mass/Vol]0.3 mg/dLNormal0.2-1.0The [facility] Comment on above:Performed By: #### MG, CMP #### [facility] [address] [address] [address] Doreen BetancourtCalcium [Mass/Vol]9.5 mg/dLNormal8.5-10.1The [facility] Comment on above:Performed By: #### MG, CMP #### [facility] [address] [address] [address] Doreen BetancourtChloride [Moles/Vol]104 mmol/RNmarho13-079Zup [facility] Comment on above:Performed By: #### MG, CMP #### [facility] [address] [address] [address] Doreen BetancourtCO2 [Moles/Vol]31.8 mmol/LLxzdlr69.0-32.0The [facility] Comment on above:Performed By: #### MG, CMP #### [facility] [address] [address] [address] Doreen BetancourtCreatinine [Mass/Vol]0.59 mg/dLNormal0.55-1.02The [facility] CenterComment on above:Performed By: #### MG, CMP #### [facility] [address] [address] [address] Logan ChangEGFR-AF NORTH KOREAN>60Normal>=60The [facility] CenterComment on above:Performed By: #### MG, CMP #### [facility] [address] [place] [address] Dr. Doreen GregoryGFR-NON AF [place]ORE[place]>60Normal>=60The [facility] CenterComment on above:Performed By: #### MG, CMP #### [facility] [address] [place] [address] Dr. Doreen BetancourtGlobulin (S) [Mass/Vol]3.7 g/dLNormalThe [facility] CenterComment on above:Performed By: #### MG, CMP #### [facility] [address] [address] [address] Doreen BetancourtGlucose [Mass/Vol]110 mg/dLCritically zujy70-152Jbu [facility] CenterComment on above:Performed By: #### MG, CMP #### [facility] [address] [place] [address] Dr. Doreen BetancourtPotassium [Moles/Vol]4.4 mmol/LNormal3.5-5.1The [facility] Comment on above:Performed By: #### MG, CMP #### [facility] [address] [address] [address] Doreen BetancourtProtein [Mass/Vol]7.6 g/dLNormal6.4-8.2The [facility] Comment on above:Performed By: #### MG, CMP #### [facility] [address] [address] [address] Doreen BetancourtSodium [Moles/Vol]140 mmol/LElckpf821-233QtlNationwide Children'S Hospital Comment on above:Performed By: #### MG, CMP #### [facility] [address] [address] [address] Doreen BetancourtUrea nitrogen [Mass/Vol]17.0 mg/dLNormal7.0-18.0The [facility] CenterComment on above:Performed By: #### MG, CMP #### [facility] [address] [address] [address] Doreen Copeland nitrogen/Creatinine [Mass ratio]28.8 mg/mgNoSelect Medical [facility] Clinic [facility] Hospital, AvonComment on above:Performed By: #### MG, CMP #### [facility] [address] [address] [address] Doreen BetancourtXR CHEST 1 Von [id number] CHEST 1 VEXAMINATION: XR CHEST 1 V [...] Electronically authenticated by: NEDA COULTER Date: 2022-05-22 11:22NoSelect Medical [facility], AvonCovid-19 PCR (CVDTBH)on [id number]-CoV-2 (COVID-19) RNA MARIVEL+probe Ql (Unsp spec)Not detectedNormalNOT DETECTEDThe [facility] Comment on above:Result Comment: This test is not yet approved or cleared by the [place] FDA. When there are no FDA-approved or cleared tests available, and other criteria are met, FDA can make tests available under an emergency access mechanism called an Emergency Use Authorization (EUA). The EUA for this test is supported by the Marketing Team Lead of Health and Human Service's (HHS's) declaration [...] consistent with SARS-CoV-2.Performed By: #### CVDTB #### [facility] [address] [place] [address] Dr. Doreen Keller AUTO DIFFon [id number] #0.0 103/ulNormal0.0-0.1The [facility] CenterComment on above:Performed By: #### MG, CMP #### [facility] [address] [place] [address] Dr. Doreen Pardosophils/100 WBC (Bld)0.4 %Normal0.2-2.0[facility] Comment on above:Performed By: #### MG, CMP #### [facility] [address] [place] [address] Dr. Doreen Everett #0.1 103/ulNormal0.0-0.7The [facility] CenterComment on above: Performed By: #### MG, CMP #### [facility] [address] [place] [address] Dr. Doreen Gregoryosinophils/100 WBC (Bld)0.7 %Critically low0.9-7.0The [facility] CenterComment on above:Performed By: #### MG, CMP #### [facility] [address] [place] [address] Dr. Doreen Gregoryrythrocyte distribution width (RBC) [Ratio]12.9 %Vihsif98.0-15.0 The [facility] CenterComment on above:Performed By: #### MG, CMP #### [facility] [address] [address] [address] Doreen BetancourtHematocrit (Bld) [Volume fraction]32.5 %Critically low36.0-48.0 The [facility] CenterComment on above:Performed By: #### MG, CMP #### [facility] [address] [place] [address] Dr. Doreen BetancourtHemoglobin (Bld) [Mass/Vol]10.6 g/dLCritically low12.0-16.0The [facility] CenterComment on above:Performed By: #### MG, CMP #### [facility] [address] [place] [address] Dr. Doreen Shepherd #0.02 10e3/ulNormal0.00-0.03The [facility] on above:Performed By: #### MG, CMP #### [facility] [address] [place] [address] Dr. Doreen Shepherd %0.3 %Normal0.0-0.5The [facility] CenterComment on above: Performed By: #### MG, CMP #### [facility] [address] [place] [address] Dr. Doreen Kaiser #2.2 103/ulNormal1.2-3.8The [facility] on above:Performed By: #### MG, CMP #### [facility] [address] [place] [address] Dr. Doreen Camachohocytes/100 WBC (Bld)32.0 %Vftpht44.5-60.0The [facility] CenterComment on above:Performed By: #### MG, CMP #### [facility] [address] [place] [address] Dr. Doreen DixonUAL DIFF REQNONormalThe [facility] CenterComment on above: Performed By: #### MG, CMP #### [facility] [address] [place] [address] Dr. Doreen Tapia (RBC) [Entitic mass]30.5 fhNaqlji15.7-34.0The [facility] CenterComment on above:Performed By: #### MG, CMP #### [facility] [address] [place] [address] Dr. Doreen Stearns (RBC) [Mass/Vol]32.6 g/bEPgksws05.9-35.2The [facility] CenterComment on above:Performed By: #### MG, CMP #### [facility] [address] [place] [address] Dr. Doreen Stearns (RBC) [Entitic vol]93.4 tEXjjdrh29.0-99.0The [facility] CenterComment on above:Performed By: #### MG, CMP #### [facility] [address] [place] [address] Dr. Doreen Cheema #0.6 103/ulNormal0.3-0.8The [facility] CenterComment on above:Performed By: #### MG, CMP #### [facility] [address] [place] [address] Dr. Doreen Ruizocytes/100 WBC (Bld)8.3 %Normal1.7-12.0The [facility] Comment on above:Performed By: #### MG, CMP #### [facility] [address] [place] [address] Dr. Doreen Brar #3.9 103/ulNormal1.4-6.5The [facility] CenterComment on above:Performed By: #### MG, CMP #### [facility] [address] [place] [address] Dr. Doreen Gomezophils/100 WBC (Bld)58.3 %Rgcfbi43.0-75.0The [facility] CenterComment on above:Performed By: #### MG, CMP #### [facility] [address] [place] [address] Dr. Doreen Basilio mean volume (Bld) [Entitic vol]10.4 fLNormal9.5-13.5The [facility] CenterComment on above:Performed By: #### MG, CMP #### [facility] [address] [address] [address] Doreen BetancourtPLT213 103/nuAkbnvd640-212Wca [facility] CenterComment on above: Performed By: #### MG, CMP #### [facility] [address] [address] [address] Doreen BetancourtRBC3.48 106/ulCritically low4.20-5.40The [facility] CenterComment on above:Performed By: #### MG, CMP #### [facility] [address] [place] [address] Dr. Doreen BeatncourtWBC6.8 103/ulNormal4.0-11.0The [facility] CenterComment on above: Performed By: #### MG, CMP #### [facility] [address] [place] [address] Dr. Doreen BetancourtPROF CHEM 8 (BAS METB)on 29-33-6159Gbzyz gap [Moles/Vol]7.3 mmol/LNormalThe [facility] CenterComment on above:Performed By: #### MG, CMP #### [facility] [address] [place] [address] Dr. Doreen BetancourtCalcium [Mass/Vol]8.8 mg/dLNormal8.5-10.1The [facility] Comment on above:Performed By: #### MG, CMP #### [facility] [address] [place] [address] Dr. Doreen BetancourtChloride [Moles/Vol]105 mmol/DYeynbf92-763Yez [facility] Comment on above:Performed By: #### MG, CMP #### [facility] [address] [place] [address] Dr. Doreen BetancourtCO2 [Moles/Vol]27.8 mmol/HFyewdr18.0-32.0The [facility] Comment on above:Performed By: #### MG, CMP #### [facility] [address] [place] [address] Dr. Doreen BetancourtCreatinine [Mass/Vol]0.57 mg/dLNormal0.55-1.02The [facility] CenterComment on above:Performed By: #### MG, CMP #### [facility] [address] [address] [address] Doreen GregoryGFR-AF [place]OREAN>60Normal>=60The [facility] CenterComment on above:Performed By: #### MG, CMP #### [facility] [address] [address] [address] Doreen GregoryGFR-NON AF [place]>60Normal>=60The [facility] on above:Performed By: #### MG, CMP #### [facility] [address] [address] [address] Doreen BetancourtGlucose [Mass/Vol]93 mg/yKJkrggt91-789MkwNationwide Children'S Hospital Comment on above:Performed By: #### MG, CMP #### [facility] [address] [address] [address] Doreen BetancourtPotassium [Moles/Vol]4.1 mmol/LNormal3.5-5.1[facility] Comment on above:Performed By: #### MG, CMP #### [facility] [address] [address] [address] Doreen BetancourtSodium [Moles/Vol]136 mmol/IEoqqld606-647Ven [facility] Comment on above:Performed By: #### MG, CMP #### [facility] [address] [address] [address] Doreen BetancourtUrea nitrogen [Mass/Vol]5.0 mg/dLCritically low7.0-18.0The [facility] CenterComment on above:Performed By: #### MG, CMP #### [facility] [address] [place] [address] Dr. Doreen Copeland nitrogen/Creatinine [Mass ratio]8.8 mg/mgNormalThe [facility] CenterComment on above:Performed By: #### MG, CMP #### [facility] [address] [address] [address] Doreen BetancourtPROF CHEM 8 (BAS METB)on 50-49-1551Kjxog gap [Moles/Vol]9.6 mmol/LNormalThe [facility] CenterComment on above:Performed By: #### CVDTBH #### [facility] [address] [address] [address] Doreen BetancourtCalcium [Mass/Vol]8.8 mg/dLNormal8.5-10.1[facility] Comment on above:Performed By: #### CVDTBH #### [facility] [address] [address] [address] Doreen BetancourtChloride [Moles/Vol]101 mmol/WMiygkz42-256Tkw [facility] Comment on above:Performed By: #### CVDTBH #### [facility] [address] [place] [address] Dr. Doreen BetancourtCO2 [Moles/Vol]26.8 mmol/IXtjgvz31.0-32.0[facility] Comment on above:Performed By: #### CVDTBH #### [facility] [address] [place] [address] Dr. Doreen BetancourtCreatinine [Mass/Vol]0.53 mg/dLCritically low0.55-1.02The [facility] CenterComment on above:Performed By: #### CVDTBH #### [facility] [address] [place] [address] Dr. Doreen GregoryGFR-AF [place]ORE[place]>60Normal>=60The [facility] CenterComment on above:Performed By: #### CVDTBH #### [facility] [address] [place] [address] Dr. Doreen GregoryGFR-NON AF [place]>60Normal>=60The [facility] CenterComment on above:Performed By: #### CVDTBH #### [facility] [address] [place] [address] Dr. Doreen BetancourtGlucose [Mass/Vol]122 mg/dLCritically phta75-637Owl [facility] CenterComment on above:Performed By: #### CVDTBH #### [facility] [address] [place] [address] Dr. Doreen BetancourtPotassium [Moles/Vol]3.4 mmol/LCritically low3.5-5.1The [facility] CenterComment on above:Performed By: #### CVDTBH #### [facility] [address] [place] [address] Dr. Doreen Maderadium [Moles/Vol]134 mmol/LCritically yvk430-859Hwc [facility] CenterComment on above:Performed By: #### CVDTBH #### [facility] [address] [place] [address] Dr. Doreen Copeland nitrogen [Mass/Vol]6.0 mg/dLCritically low7.0-18.0The [facility] CenterComment on above:Performed By: #### CVDTBH #### [facility] [address] [place] [address] Dr. Doreen Copeland nitrogen/Creatinine [Mass ratio]11.3 mg/mgNormalThe [facility] CenterComment on above:Performed By: #### CVDTBH #### [facility] [address] [place] [address] Dr. Doreen Keller AUTO DIFFon 75-46-3447IIMV #0.0 103/ulNormal0.0-0.1The [facility] CenterComment on above:Performed By: #### MG, CMP #### [facility] [address] [place] [address] Dr. Doreen BetancourtBasophils/100 WBC (Bld)0.1 %Critically low0.2-2.0The [facility] CenterComment on above:Performed By: #### MG, CMP #### [facility] [address] [place] [address] Dr. Doreen Everett #0.0 103/ulNormal0.0-0.7The [facility] CenterComhenry for[facility] on above: Performed By: #### MG, CMP #### [facility] [address] [place] [address] Dr. Doreen Gregoryosinophils/100 WBC (Bld)0.0 %Critically low0.9-7.0The [facility] CenterComment on above:Performed By: #### MG, CMP #### [facility] [address] [place] [address] Dr. Doreen Gregoryrythrocyte distribution width (RBC) [Ratio]13.0 %Fvxujc50.0-15.0 [facility] on above:Performed By: #### MG, CMP #### [facility] [address] [place] [address] Dr. Doreen BetancourtHematocrit (Bld) [Volume fraction]35.6 %Critically low36.0-48.0 The [facility] CenterComhenry ford [facility] on above:Performed By: #### MG, CMP #### [facility] [address] [place] [address] Dr. Doreen BetancourtHemoglobin (Bld) [Mass/Vol]11.5 g/dLCritically low12.0-16.0[facility] on above:Performed By: #### MG, CMP #### [facility] [address] [place] [address] Dr. Doreen Shepherd #0.02 10e3/ulNormal0.00-0.03[facility] on above:Performed By: #### MG, CMP #### [facility] [address] [place] [address] Dr. Doreen Shepherd %0.2 %Normal0.0-0.5The [facility] on above: Performed By: #### MG, CMP #### [facility] [address] [place] [address] Dr. Doreen Kaiser #1.3 103/ulNormal1.2-3.8The [facility] on above:Performed By: #### MG, CMP #### [facility] [address] [place] [address] Dr. Doreen Camachohocytes/100 WBC (Bld)12.4 %Critically low20.5-60.0[facility] on above:Performed By: #### MG, CMP #### [facility] [address] [place] [address] Dr. Doreen DixonUAL DIFF REQNONormalThe Dee HospitalComment on above: Performed By: #### MG, CMP #### [facility] [address] [place] [address] Dr. Doreen Stearns (RBC) [Entitic mass]29.9 ihBrqfev52.7-34.0The [facility] CenterComment on above:Performed By: #### MG, CMP #### [facility] [address] [place] [address] Dr. Doreen Stearns (RBC) [Mass/Vol]32.3 g/zLBrffbn49.9-35.2The [facility] CenterComment on above:Performed By: #### MG, CMP #### [facility] [address] [place] [address] Dr. Doreen Alejo (RBC) [Entitic vol]92.7 aGRvlezh82.0-99.0The [facility] CenterComment on above:Performed By: #### MG, CMP #### [facility] [address] [place] [address] Dr. Doreen Cheema #0.9 103/ulCritically high0.3-0.8ThMemorial Health System Comment on above:Performed By: #### MG, CMP #### [facility] [address] [place] [address] Dr. Doreen Ruizocytes/100 WBC (Bld)8.8 %Normal1.7-12.0[facility] Comment on above:Performed By: #### MG, CMP #### [facility] [address] [place] [address] Dr. Doreen Brar #8.3 103/ulCritically high1.4-6.5ThMemorial Health System Comment on above:Performed By: #### MG, CMP #### [facility] [address] [place] [address] Dr. Doreen Gomezophils/100 WBC (Bld)78.5 %Critically high43.0-75.0[facility] HospitalComment on above:Performed By: #### MG, CMP #### [facility] [address] [place], [place] [id number] Dr. Doreen Goldsteinlet mean volume (Bld) [Entitic vol]10.6 fLNormal9.5-13.5The [facility] CenterComment on above:Performed By: #### MG, CMP #### [facility] [address] [place] [address] Dr. Doreen BetancourtPLT218 103/tgTnsppk291-006Nsj [facility] CenterComment on above: Performed By: #### MG, CMP #### [facility] [address] [place] [address] Dr. Doreen BetancourtRBC3.84 106/ulCritically low4.20-5.40The [facility] Medical CenterComment on above:Performed By: #### MG, CMP #### [facility] [address] [place] [address] Dr. Doreen BetancourtWBC10.6 103/ulNormal4.0-11.0The [facility] CenterComment on above:Performed By: #### MG, CMP #### [facility] [address] [place] [address] Dr. Doreen BetancourtPROF CHEM 8 (BAS METB)on 73-20-7484Cqhea gap [Moles/Vol]9.4 mmol/LNormalThe [facility] CenterComment on above:Performed By: #### MG, CMP #### [facility] [address] [place] [address] Dr. Doreen BetancourtCalcium [Mass/Vol]8.4 mg/dLCritically low8.5-10.1The [facility] CenterComment on above:Performed By: #### MG, CMP #### [facility] [address] [place] [address] Dr. Doreen BetancourtChloride [Moles/Vol]105 mmol/PLdxktn29-993Ocx [facility] Comment on above:Performed By: #### MG, CMP #### [facility] [address] [place] [address] Dr. Doreen BetancourtCO2 [Moles/Vol]25.1 mmol/BRclgfz24.0-32.0The [facility] Comment on above:Performed By: #### MG, CMP #### [facility] [address] [address] [address] Doreen BetancourtCreatinine [Mass/Vol]0.50 mg/dLCritically low0.55-1.02The [facility] CenterComment on above:Performed By: #### MG, CMP #### [facility] [address] [address] [address] Doreen GregoryGFR-AF NORTH KOREAN>60Normal>=60The [facility] CenterComment on above:Performed By: #### MG, CMP #### [facility] [address] [address] [address] Doreen GregoryGFR-NON AF NORTH [place]OREAN>60Normal>=60The [facility] CenterComment on above:Performed By: #### MG, CMP #### [facility] [address] [address] [address] Doreen BetancourtGlucose [Mass/Vol]114 mg/dLCritically zjpf96-728Isq [facility] CenterComment on above:Performed By: #### MG, CMP #### [facility] [address] [address] [address] Doreen BetancourtPotassium [Moles/Vol]3.5 mmol/LNormal3.5-5.1[facility] Comment on above:Performed By: #### MG, CMP #### [facility] [address] [address] [address] Doreen BetancourtSodium [Moles/Vol]136 mmol/WCskykk378-053Osv [facility] Comment on above:Performed By: #### MG, CMP #### [facility] [address] [address] [address] Doreen BetancourtUrea nitrogen [Mass/Vol]6.0 mg/dLCritically low7.0-18.0The [facility] Centerment on above:Performed By: #### MG, CMP #### [facility] [address] [address] [address] Doreen BetancourtUrea nitrogen/Creatinine [Mass ratio]12.0 mg/mgNoalThe [facility] CenterComment on above:Performed By: #### MG, CMP #### [facility] [address] [place] [address] Dr. Doreen Keller AUTO DIFFon 40-93-3251TBQJ #0.1 103/ulNormal0.0-0.1The [facility] CenterComment on above:Performed By: #### MG, CMP #### [facility] [address] [place] [address] Dr. Doreen BetancourtBasophils/100 WBC (Bld)0.8 %Normal0.2-2.0The [facility] Comment on above:Performed By: #### MG, CMP #### [facility] [address] [place] [address] Dr. Doreen Everett #0.1 103/ulNormal0.0-0.7The [facility] CenterComment on above: Performed By: #### MG, CMP #### [facility] [address] [place] [address] Dr. Doreen Gregoryosinophils/100 WBC (Bld)1.8 %Normal0.9-7.0The [facility] Comment on above:Performed By: #### MG, CMP #### [facility] [address] [place] [address] Dr. Doreen Gregoryrythrocyte distribution width (RBC) [Ratio]13.0 %Yuubdr59.0-15.0 The [facility] CenterComment on above:Performed By: #### MG, CMP #### [facility] [address] [place] [address] Dr. Doreen BetancourtHematocrit (Bld) [Volume fraction]42.1 %Alzruu12.0-48.0The [facility] CenterComment on above:Performed By: #### MG, CMP #### [facility] [address] [place] [address] Dr. Doreen BetancourtHemoglobin (Bld) [Mass/Vol]13.4 g/iUQrioya00.0-16.0The [facility] CenterComment on above:Performed By: #### MG, CMP #### [facility] [address] [address] [address] Doreen Shepherd #0.02 10e3/ulNormal0.00-0.03The [facility] on above:Performed By: #### MG, CMP #### [facility] [address] [place] [address] Dr. Doreen Shepherd %0.3 %Normal0.0-0.5The [facility] CenterComhenry [facility] on above: Performed By: #### MG, CMP #### [facility] [address] [place] [address] Dr. Doreen Kaiser #2.1 103/ulNormal1.2-3.8The [facility] CenterComment on above:Performed By: #### MG, CMP #### [facility] [address] [place] [address] Dr. Doreen Camachohocytes/100 WBC (Bld)31.6 %Iowkze79.5-60.0The [facility] on above:Performed By: #### MG, CMP #### [facility] [address] [place] [address] Dr. Doreen DixonUAL DIFF REQNONormalThe [facility] CenterComhenry [facility] on above: Performed By: #### MG, CMP #### [facility] [address] [place] [address] Dr. Doreen Stearns (RBC) [Entitic mass]30.2 htGsssnl22.7-34.0The [facility] on above:Performed By: #### MG, CMP #### [facility] [address] [place] [address] Dr. Doreen Stearns (RBC) [Mass/Vol]31.8 g/tAYpkzpy14.9-35.2The [facility] on above:Performed By: #### MG, CMP #### [facility] [address] [place] [address] Dr. Doreen Stearns (RBC) [Entitic vol]95.0 eYYwvdqz06.0-99.0The [facility] HospitalComment on above:Performed By: #### MG, CMP #### [facility] [address] [place] [address] Dr. Doreen Cheema #0.4 103/ulNormal0.3-0.8The [facility] CenterComment on above:Performed By: #### MG, CMP #### [facility] [address] [place] [address] Dr. Doreen Ruizocytes/100 WBC (Bld)6.2 %Normal1.7-12.0The [facility] Comment on above:Performed By: #### MG, CMP #### [facility] [address] [place] [address] Dr. Doreen Brar #3.9 103/ulNormal1.4-6.5The [facility] CenterComment on above:Performed By: #### MG, CMP #### [facility] [address] [place] [address] Dr. Doreen Wrenutrophils/100 WBC (Bld)59.3 %Mnwpbx83.0-75.0The [facility] CenterComment on above:Performed By: #### MG, CMP #### [facility] [address] [place] [address] Dr. Doreen Basilio mean volume (Bld) [Entitic vol]10.2 fLNormal9.5-13.5The [facility] CenterComment on above:Performed By: #### MG, CMP #### [facility] [address] [place] [address] Dr. Doreen BetancourtPLT276 103/djCyymuz639-995Gxi [facility] CenterComment on above: Performed By: #### MG, CMP #### [facility] [address] [place] [address] Dr. Doreen BetancourtRBC4.43 106/ulNormal4.20-5.40The [facility] CenterComment on above:Performed By: #### MG, CMP #### [facility] [address] [place] [address] Dr. Doreen BetancourtWBC6.6 103/ulNormal4.0-11.0The [facility] Centerment on above: Performed By: #### MG, CMP #### [facility] [address] [place] [address] Dr. Doreen BetancourtCovicale-19 PCR ([facility])on 09-18-7502CMZE-CoV-2 (COVID-19) RNA MARIVEL+probe Ql (Unsp spec)Not detectedNormalNOT DETECTEDThe [facility] Comment on above:Result Comment: When diagnostic testing [...] for this test is supported by the [employer] [place] Lead of Health and Human Service's declaration that [...] be used).Performed By: #### MG, CMP #### [facility] [address] [place] [address] Dr. Doreen BetancourtTYPE AND SCREENon 85-41-8723VLII AND SCREENNegativeNormalThe [facility] CenterComhenry [facility] on above:Performed By: #### MG, CMP #### [facility] [address] [place] [address] Dr. Doreen Cobian 73-82-7810FRA9.9 ng/mLCritically high0.0-4.7The [facility] CenterComhenry [facility] on above:Result Comment: Nonsmokers <3.9 Smokers <5.6 . [employer] Electrochemiluminescence Immunoassay (ECLIA) . Values obtained with different assay methods or kits cannot be used interchangeably. Results cannot be interpreted as absolute evidence of the presence or absence of malignant disease.Performed By: #### MG, CMP #### [facility] [address] [address] [address] Doreen BetancourtPROF 14(COMP METB)on 88-40-5566Whuewde [Mass/Vol]3.6 g/dLNormal 3.4-5.0The [facility] CenterComment on above:Performed By: #### MG, CMP #### [facility] [address] [address] [address] Doreen BetancourtAlbumin/Globulin [Mass ratio]1.1 {ratio}NormalThe [facility] CenterComment on above:Performed By: #### MG, CMP #### [facility] [address] [address] [address] Doreen CarolinaP [Catalytic activity/Vol]76 U/MXeqmjh61-645Waf [facility] CenterComment on above:Performed By: #### MG, CMP #### [facility] [address] [place] [address] Dr. Doreen CarolinaT [Catalytic activity/Vol]18 U/IFsiswj00-48Plh [facility] CenterComment on above:Performed By: #### MG, CMP #### [facility] [address] [address] [address] Doreen Cifuentes gap [Moles/Vol]12.7 mmol/LNormalThe [facility] Comment on above:Performed By: #### MG, CMP #### [facility] [address] [address] [address] Doreen BetancourtAST [Catalytic activity/Vol]15 U/LZnzzgx57-87Cgl [facility] CenterComment on above:Performed By: #### MG, CMP #### [facility] [address] [address] [address] Doreen BetancourtBilirubin [Mass/Vol]0.3 mg/dLNormal0.2-1.0The [facility] Comment on above:Performed By: #### MG, CMP #### [facility] [address] [address] [address] Doreen BetancourtCalcium [Mass/Vol]8.8 mg/dLNormal8.5-10.1The [facility] Comment on above:Performed By: #### MG, CMP #### [facility] [address] [address] [address] Doreen BetancourtChloride [Moles/Vol]104 mmol/SYprrlu93-073Oxn [facility] Comment on above:Performed By: #### MG, CMP #### [facility] [address] [address] [address] Doreen BetancourtCO2 [Moles/Vol]25.5 mmol/KEnxgax50.0-32.0The [facility] Comment on above:Performed By: #### MG, CMP #### [facility] [address] [address] [address] Doreen BetancourtCreatinine [Mass/Vol]0.61 mg/dLNormal0.55-1.02[facility] HospitalComment on above:Performed By: #### MG, CMP #### [facility] [address] [address] [address] Doreen GregoryGFR-AF NORTH KOREAN>60Normal>=60The [facility] CenterComment on above:Performed By: #### MG, CMP #### [facility] [address] [address] [address] Doreen GregoryGFR-NON AF [place]TH [place]OREAN>60Normal>=60The [facility] CenterComment on above:Performed By: #### MG, CMP #### [facility] [address] [address] [address] Doreen BetancourtGlobulin (S) [Mass/Vol]3.3 g/dLNormalThe [facility] CenterComment on above:Performed By: #### MG, CMP #### [facility] [address] [address] [address] Doreen BetancourtGlucose [Mass/Vol]93 mg/uYGtihza35-706Tgt [facility] Comment on above:Performed By: #### MG, CMP #### [facility] [address] [address] [address] Doreen BetancourtPotassium [Moles/Vol]4.2 mmol/LNormal3.5-5.1The [facility] Comment on above:Performed By: #### MG, CMP #### [facility] [address] [address] [address] Doreen BetancourtProtein [Mass/Vol]6.9 g/dLNormal6.4-8.2[facility] Comment on above:Performed By: #### MG, CMP #### [facility] [address] [place] [address] Dr. Doreen BetancourtSodium [Moles/Vol]138 mmol/XKnwuxr666-379Gta [facility] Comment on above:Performed By: #### MG, CMP #### [facility] [address] [place] [address] Dr. Doreen BetancourtUrea nitrogen [Mass/Vol]17.0 mg/dLNormal7.0-18.0[facility] HospitalComment on above:Performed By: #### MG, CMP #### [facility] [address] [place] [address] Dr. Doreen Copeland nitrogen/Creatinine [Mass ratio]27.9 mg/mgNoalThMemorial Health SystemComment on above:Performed By: #### MG, CMP #### [facility] [address] [place] [address] Dr. Doreen BetancourtCT ABD/PELV W CONon 81-60-7976AV ABD/PELV W CONEXAMINATION: CT ABD/PELV W CON [...] Electronically authenticated by: NEDA COULTER Date: 2022-03-27 17:13NoSelect [facility], AvonCovid-19 PCR ([facility]VDTB[facility])on 36-21-0288VHQY-CoV-2 (COVID-19) RNA MARIVEL+probe Ql (Unsp spec)Not detectedNormalNOT DETECTEDThe [facility] Comment on above:Result Comment: This test is not yet approved or cleared by the [place] FDA. When there are no FDA-approved or cleared tests available, and other criteria are met, FDA can make tests available under an emergency access mechanism called an Emergency Use Authorization (EUA). The EUA for this test is supported by the [place] of Health and Human Service's (HHS's) declaration [...] with SARS-CoV-2.Performed By: #### MG, CMP #### [facility] [address] [place] [address] Dr. Doreen Buchanan ABD/PELVelia Munoz 04-81-0756DO ABD/PELV W CONEXAMINATION: CT ABD/PELV W CON [...] Electronically authenticated by: NEDA COULTER Date: 2022-01-09 17:[address] [place], [place] [address]Coding Summaryon 60-91-7003Zksfhq SummaryHTMLBase 64 WsowzhgyJUh7oLb+PGhlYWQ+FY8QXLCcD63mwCEyoZ0QT0gSBE5SPCCYVUROTC0FWN9tmMM3WFrpS3Pm biAv [file] bGF (more content not included)...[facility] CenterED Clinical Summaryon 40-10-3801MH [facility] Summary[facility] [address] [place], [place] [id number] Clinical Summary PERSON INFORMATION Name: MARYSOL JACOBSON Age: 56 Years Sex: FEMALE : 1965 MRN: Acct#: Visit Reason: Wrist laceration; LEFT WRIST LAC Arrival: 04/21/2021 17:52:39 Discharge: 04/21/2021 18:47:00 LOS: 000 00:55 Check In: 04/21/2021 17:52:39 Checkout: 04/21/2021 18:47:00 Address: [address] [place] [id number] PCP: Sandro Chin MD PROVIDER INFORMATION Provider [...] PATIENT EDUCATION INFORMATION Instructions: Laceration Care, Adult, Gvfq-mp-Bkkc Follow-Up: With: Address: When: Sandro Chin [address] [place], [place] [id number] [facility] (1) Within 3 to 5 days Comments: Please follow-up with Dr. Chin, call the office schedule an appointment to be seen in 3 to 5 days for wound check, please take your Augmentin as prescribed, keep the wound clean, apply bacitracin and keep it covered, have sutures removed in 10 to 12 days from today, take ltkt-dvw-prywgtz pain medication as needed, and return back to the urgent care center for any worsening symptoms, concerns, orcomplications. DIAGNOSIS: 1:Laceration of left wrist Patient Understands: Yes - Patient/family/caregiver verbalizes understanding of instructions given Comment:[facility] CenterED Patient Summaryon [id number] Patient Summary [facility] ? Urgent Care [address] [place], [place] [id number] PATIENT DISCHARGE INSTRUCTIONS Patient Information Name: MARYSOL JACOBSON Age: 56 Years Date of : 1965 Reason For Visit: Wrist laceration; LEFT WRIST LAC Arrival Time: 04/21/2021 17:52:39 Primary Care Physician: Sandro Chin MD Attending Physician: Leo Art PA-C Comment: Patient Education With: Address: When: Sandro Chin [facility] [facility], [place] [address] [facility] (1) Within 3 to 5 days Comments: Please follow-up with Dr. Chin, call the office schedule an appointment to be seen in 3 to 5 days for wound check, please take your Augmentin as prescribed, keep the wound clean, apply bacitracin and keep it covered, have sutures removed in 10 to 12 days from today, take nuek-axq-yqptujv pain medication as needed, and return back [...] needed: ? Soap. ? Water. ? Hand mechanical design drafter. ? Bandage (dressing). ? Antibiotic ointment. ? Clean towel. How to take care of your cut Wash your hands with soap and water before touching your wound or changing your bandage. If soap and water are not available, use hand mechanical design drafter. If your doctor used stitches or yuridia: [...] off the skin. General instructions ? Take gqvk-sgh-zujpvoq and prescription medicines only as told by [...] told by your doctor (more content not included)...[facility] Note - Nurseon 30-58-6579Bvatxhqy Note - Nursesutured wound cleaned, bacitracin applied and a bandage, pt tolerated well [Electronically Signed on: 04/21/2021 18:57 EDT] Lauren Boyer [Verified on: 04/21/2021 18:57 EDT] Andrea BoyerBarnesville HospitalUrgent Care Recordon 50-58-9924[facility] ? Urgent Care [address] [place] [address] PATIENT DISCHARGE INSTRUCTIONS Patient Information Name: MARYSOL JACOBSON Age: 56 Years Date of : 1965 Reason For Visit: Wrist laceration; LEFT WRIST LAC Arrival Time: 04/21/2021 17:52:39 Primary Care Physician: Sandro Chin MD Attending Physician: Leo Art PA-C Comment: Visit Diagnosis: Diagnoses This Visit Laceration of left wrist (S61.512A) Wrist laceration ([id number]) If you received any narcotics, sedation, or [...] legal documents With: Address: When: Sandro Chin [facility] [facility], [place] [address] Business (1) Within 3 to 5 days Comments: Please follow-up with Dr. Chin, call the office schedule an appointment to be seen in 3 to 5 days for wound check, please take your Augmentin as prescribed, keep the wound clean, apply bacitracin and keep it covered, have sutures removed in 10 to 12 days from today, take qtfa-tex-bwbaxoz pain medication as needed, and return back to the urgent care center for any worsening symptoms, concerns, orcomplications. Medication Information: The exam and treatment you received today in the [facility] were for an urgent problem and are not intended as complete care. It is important for you to follow up with a doctor, nurse practitioner, or physician?s assistant food service director for ongoing care. If your symptoms become [...] so we can reach you if necessary. [facility] has provided you with a complete list of medications post discharge. Please inform your building mover/provider of your visit and for further instruction on these medications. Any specific questions regarding your chronic medications and dosages should be discussed with your primary care physician(s) and/or pharmacist. New Medications [facility], [address] [place] [address], [place] [id number], [phone] amoxicillin-clavulanate (Augmentin 875 mg-125 mg oral tablet) [...] needed: ? Soap. ? Water. ? Hand mechanical design drafter. ? Bandage (dressing). ? Antibiotic ointment. ? Clean towel. How to take care of your cut Wash your hands with soap and water before touching your wound or changing your bandage. If soap and water ar (more content not included)...[facility] Vital Signs Date TimeVital SignValuePerforming HkqvhvpljUfptbbcf74-23-0224 11:36-0400Body lytknsgpgsc32.1 [degF]Sandro Chin MD Work Phone: [phone]) 256-574910-30-2025 11:36-0400 Body iygpup23.21 kgSandro Chin MD Work Phone: [phone]10-30-2025 11:36-0400 Diastolic blood xiwhqbif50 mm[Hg]Sandro Chin MD Work Phone: [phone])[address] [place], [place] [address]2010-30-2025 11:36-0400 Heart rate71 /Mayur Chin MD Work Phone: [phone])[address] [place], [place] [address]2010-30-2025 11:36-0400 Respiratory rate18 /Mayur Chin MD Work Phone: [phone])[address] [place], [place] [address]2010-30-2025 11:36-0400 SaO2% (BldA) [Mass fraction]99 %Sandro Chin MD Work Phone: [phone])[address] [place], [place] [address]2010-30-2025 11:36-0400 Systolic blood wvviqkqt191 mm[Hg]Sandro Chin MD Work Phone: [phone])[address] [place], [place] [address]2009-29-2025 13:13-0400 Body wefpsiuhcrd79.7 [degF]Sandro Chin MD Work Phone: [phone])[address] [place], [place] [address]2009-29-2025 13:13-0400 Body neowqe96.57 kgSandro Chin MD Work Phone: [phone])[address] [place], [place] [address]2009-29-2025 13:13-0400 Diastolic blood mgzipoav61 mm[Hg]Sandro Chin MD Work Phone: 1([phone])[address] [place], [place] [address]2009-29-2025 13:13-0400 Heart rate69 /Mayur Chin MD Work Phone: 1(388)[address] [place], [place] [address]2009-29-2025 13:13-0400 Respiratory rate16 /Mayur Chin MD Work Phone: 1(878)[address] [place], [place] [address]2009-29-2025 13:13-0400 SaO2% (BldA) [Mass fraction]98 %Sandro Chin MD Work Phone: [phone])[address] [place], [place] [address]2009-29-2025 13:13-0400 Systolic blood nnzhotbm923 mm[Hg]Sandro Chin MD Work Phone: [phone]09-15-2025 13:10-0400 Body whgamt23.93 kgSandro Chin MD Work Phone: [phone])[address]09-15-2025 13:10-0400 Diastolic blood mm[Hg]Sandro Chin MD Work Phone: [phone])[address]09-15-2025 13:10-0400 Heart rate69 /Mayur Chin MD Work Phone: 1([phone])[address]09-15-2025 13:10-0400 Respiratory rate20 /Mayur Chin MD Work Phone: 1([phone])[address]09-15-2025 13:10-0400 SaO2% (BldA) [Mass fraction]99 %Sandro Chin MD Work Phone: [phone])[address]09-15-2025 13:10-0400 Systolic blood gtvemjhs763 mm[Hg]Sandro Chin MD Work Phone: [phone])[address]07-29-2025 09:55-0400 Diastolic blood jbpcgzji78 mm[Hg]Sandro Chin MD Work Phone: 1(762)54[address]07-29-2025 09:55-0400 Heart rate60 /Mayur Chin MD Work Phone: 1(460)98378 [address]07-29-2025 09:55-0400 Respiratory rate16 /Mayur Chin MD Work Phone: 1(704)33578 [address]07-29-2025 09:55-0400 SaO2% (BldA) [Mass fraction]98 %Sandro Chin MD Work Phone: 1(447)279[address]07-29-2025 09:55-0400 Systolic blood efmwfbcx96 mm[Hg]Sandro Chin MD Work Phone: 1(252)07378 [address]07-29-2025 08:44-0400 Body taktws335.56 cmSandro Chin MD Work Phone: 1(787) 434-569507-29-2025 08:44-0400 Body prbxam18.02 kgSandro Chin MD Work Phone: 1(880) 645-651706-17-2025 08:32-0400 Body mass index (BMI) [Ratio]27.29 kg/t5BomerxConstantino Martinez MD Work Phone: [facility] CenterLacylzlwxe75-43-9833 08:32-0400Body spsjvi30.12 kgConstantino Martinez MD Work Phone: [facility] CenterEvlauuyuje45-88-3491 08:32-0400Diastolic blood mm[Hg]Constantino Martinez MD Work Phone: [facility] CenterFwywwgxzpb86-84-4778 08:32-0400Heart rate68 /min Constantino Martinez MD Work Phone: [facility] CenterAcvolikeib93-43-0731 08:32-0400Systolic blood mfmnnxmi954 mm[Hg]Constantino Martinez MD Work Phone: [facility] CenterCadiruldnh77-40-8028 10:41-0400Body nvwkos576.56 cmSandro Chin MD Work Phone: 1(357) 325-979906-16-2025 10:41-0400 Body mass index (BMI) [Ratio]27.6 kg/g0FezgkwSandro Chin MD Work Phone: 1(218) 433-230006-16-2025 10:41-0400 Body ukmepw06.02 Wil Chin MD Work Phone: 1(190) 388-796106-16-2025 10:41-0400 Diastolic blood ittfdtza97 mm[Hg]Sandro Chin MD Work Phone: 1(462) 717-931006-16-2025 10:41-0400 Heart rate64 /minSandro Chin MD Work Phone: 1(880) 770-625106-16-2025 10:41-0400 Systolic blood vszafeln609 mm[Hg]Sandro Chin MD Work Phone: 1(842) 551-313506-10-2025 09:33-0400 Body zydttu152.56 cm06-10-2025 09:33-0400Body mass index (BMI) [Ratio]27.6 kg/q2Wmwqacsfv06-10-2025 09:33-0400Body swsext33.08 kg06-10-2025 09:33-0400Diastolic blood tjiwtcib96 mm[Hg] 12-14-2024 09:33-0400Heart rate58 /min 12-14-2024 09:33-0400Systolic blood obvyxrsw663 mm[Hg]03-03-2025 12:58-0500Body pbnaoj004.56 cmClint Alejandros DO Work Phone: 1(400) 580-614003-03-2025 12:58-0500 Body mass index (BMI) [Ratio]28.8 kg/p9LmqbdhkClint Alejandros DO Work Phone: 1(166) 372-200403-03-2025 12:58-0500 Body swqlflnrpob17.5 [degF]Clint Jean Baptiste DO Work Phone: 1(680) [phone] 12:58-0500 Body .2 kgSherwinarleth Alejandros DO Work Phone: 1(541) 190-383303-03-2025 12:58-0500 Diastolic blood pntwnygu95 mm[Hg]Clint Jean Baptiste DO Work Phone: 1(259) 459-179303-03-2025 12:58-0500 Heart rate58 /minLeroybowen Marcillis DO Work Phone: 1(431) 464-334703-03-2025 12:58-0500 Respiratory rate16 /minSherwinarleth Monicoillis DO Work Phone: 1(880) 904-965503-03-2025 12:58-0500 SaO2% (BldA) [Mass fraction]99 %Clint Jean Baptiste DO Work Phone: 1(443) 421-563303-03-2025 12:58-0500 Systolic blood ujnwpyan398 mm[Hg]Clint Jean Baptiste DO Work Phone: 1(609)04[address]12-26-2024 10:59-0500 Body zgtxhe266.56 cmMichaebowen Marcillis DO Work Phone: 1(909)269-[address] [place], [place] 1521412-26-2024 10:59-0500 Body mass index (BMI) [Ratio]28.8 kg/j8Imzqjjz Grillis DO Work Phone: 1(295)12[address]12-26-2024 10:59-0500 Body jaehrt01.2 kgMicarleth Marcillis DO Work Phone: 1(513)[address]12-26-2024 10:59-0500 Diastolic blood mm[Hg]Clint Jean Baptiste DO Work Phone: 1(088)[address]12-26-2024 10:59-0500 Heart rate64 /minMicarleth Alejandros DO Work Phone: 1(454)514-[address] [place], [place] 1521412-26-2024 10:59-0500 Systolic blood shaiiqjv240 mm[Hg]Clint Jean Baptiste DO Work Phone: 1(229)037[facility]2709-19-2024 11:29-0400 Body xcmwuy207.6 cmMasha Howard FOOTWEAR STITCHER[employer]PLASTER DIE MAKER Work Phone: [facility]09-19-2024 11:29-0400Body mass index (BMI) [Ratio]27.5 kg/l0UiyjuieMasha Howard [employer]OTWEAR [employer]ITCHER[employer]ER [employer] MA[employer]ER Work Phone: [facility]09-19-2024 11:29-0400Body eydkic15.67 kgMasha Howard FOOTWEAR STITCHER[employer]ER [employer] MAKER Work Phone: [facility]09-19-2024 11:29-0400Diastolic blood mm[Hg]Masha Howard [employer]WEAR [employer]ITCHER[employer]ER [employer] MAKER Work Phone: [facility]09-19-2024 11:29-0400Heart rate 54 /minMasha Howard FOOTWEAR STITCHER[employer]PLASTER [employer]IE MAKER Work Phone: [facility]09-19-2024 11:29040Systolic blood cofwnwcn363 mm[Hg]Masha Howard FOOTWEAR STITCHER[employer]PLASTER [employer]IE MAKER Work Phone: [facility]09-09-2024 13:50-0400Body fpatbi377.6 cmMichael Grillis DO Work Phone: [facility]09-09-2024 13:50-0400Body mass index (BMI) [Ratio]27.46 kg/n8Haspiaz Grillis DO Work Phone: [facility]09-09-2024 13:50-0400Body iummwm88.58 kgMichael Grillis DO Work Phone: [facility]08-28-2024 10:26-0400Body .6 cmMichael Grillis DO Work Phone: [facility]08-28-2024 10:26-0400Body mass index (BMI) [Ratio]27.46 kg/u5Domemmp Grillis DO Work Phone: [facility]08-28-2024 10:26-0400Body eedsqf81.58 kgMichael Grillis DO Work Phone: [facility]07-15-2024 11:22-0400Body hsvurz265.56 cmDO Clint Alejandros Work Phone: 1(881)997-3107-15-2024 11:22-0400 Body mass index (BMI) [Ratio]28.8 kg/m2DO Clint Marcillis Work Phone: 1(044)117-[address] [place], [place] 1521407-15-2024 11:22-0400 Body yaybztdbham13 [degF]DO Clint Alejandros Work Phone: 1(997)846-2707-15-2024 11:22-0400 Body ooyrlb94.2 kgDO Clint Alejandros Work Phone: 1(841)36[address]07-15-2024 11:22-0400 Diastolic blood fvfuizcl52 mm[Hg]DO Clint Alejandros Work Phone: 1(433)36198 [address]07-15-2024 11:22-0400 Heart rate52 /Chiqui Alejandros Work Phone: 1(070)27598 [address]07-15-2024 11:22-0400 Respiratory rate18 /MagdalenaO Clint Alejandros Work Phone: 1(651)97398 [address]07-15-2024 11:22-0400 SaO2% (BldA) [Mass fraction]99 %DO Clint Alejandros Work Phone: 1(980)72198 [address]07-15-2024 11:22-0400 Systolic blood yznqrahr793 mm[Hg]DO Clint Alejandros Work Phone: 1(383)41298 [address]05-13-2024 09:37-0400 Body .56 cmDO Clint Alejandros Work Phone: 1(410)84[address]05-13-2024 09:37-0400 Body mass index (BMI) [Ratio]28.8 kg/m2DO Clint Alejandros Work Phone: 1(197)73[address]05-13-2024 09:37-0400 Body zpcyyd52.2 kgDO Clint Alejandros Work Phone: 1(480)96198 [address]05-13-2024 09:37-0400 Diastolic blood fiqygyqp07 mm[Hg]DO Clint Alejandros Work Phone: 1(219)14998 [address]05-13-2024 09:37-0400 Heart rate60 /Chiqui Alejandros Work Phone: 1(267)96998 [address]05-13-2024 09:37-0400 Systolic blood dvhnbtry188 mm[Hg]DO Clint Alejandros Work Phone: 1(202)12998 [address]03-22-2024 10:34-0400 Body .56 cmDO Clint Alejandros Work Phone: 1(018)86698 [address]03-22-2024 10:34-0400 Body mass index (BMI) [Ratio]28.8 kg/m2DO Clint Alejandros Work Phone: 1(310)84[address]03-22-2024 10:34-0400 Body xksjeb19.2 kgDO Clint Alejandros Work Phone: 1(081)42098 [address]03-22-2024 10:34-0400 Diastolic blood larzklfg27 mm[Hg]DO Clint Alejandros Work Phone: 1(946)28098 [address]03-22-2024 10:34-0400 Heart rate63 /Chiqui Alejandros Work Phone: 1(042)74198 [address]03-22-2024 10:34-0400 Respiratory rate18 /Chiqui Alejandros Work Phone: 1(067)40[address]03-22-2024 10:34-0400 SaO2% (BldA) [Mass fraction]97 %DO Clint Alejandros Work Phone: 1(417)[address]03-22-2024 10:34-0400 Systolic blood iemdurjx676 mm[Hg]DO Clint Alejandros Work Phone: 1(766)67098 [address]12-20-2023 11:13-0500 Diastolic blood shtiejfj21 mm[Hg]DO Clint Alejandros Work Phone: 1(305)70398 [address]12-20-2023 11:13-0500 Heart rate78 /Chiqui Alejandros Work Phone: 1(883)29[address]12-20-2023 11:13-0500 Respiratory rate20 /MagdalenaO Clint Alejandros Work Phone: 1(850)60298 [address]12-20-2023 11:13-0500 SaO2% (BldA) [Mass fraction]98 %DO Clint Alejandros Work Phone: 1(249)70998 [address]12-20-2023 11:13-0500 Systolic blood mqxzdjak150 mm[Hg]DO Clint Jean Baptiste Work Phone: 1(954) 332-270411-13-2023 11:15-0500 Body ykdhsz495.56 cmSandro Chin Other [employer] Other 11-13-2023 11:15-0500Body mass index (BMI) [Ratio] 28.56 kg/a6Ffnbqk Giuseppe [facility] [employer] Other 11-13-2023 11:15-0500Body cbofle64.48 kgSandro Giuseppe Other [employer] Other 11-13-2023 11:15-0500Diastolic blood phcefmhh85 mm[Hg] Sandrozina Chin Other [employer] Other 11-13-2023 11:15-0500Systolic blood mm[Hg] Sandro Giuseppe Other [employer] Other 09-18-2023 10:41-0400Body hiwwlxdlzwy99.4 [degF]DO Clint Jean Baptiste Work Phone: 1(872) 318-608502-27-2023 08:36-0500 Body uhvlsdbofaz30 [degF]DO Isaías Adamowicz II Work Phone: 1(614) 865-370702-27-2023 08:36-0500 Body vxayxo79.6 kgDO Isaías Adamowicz II Work Phone: 1(853) 248-484402-27-2023 08:36-0500 Diastolic blood eactqkpm73 mm[Hg]DO Isaías Adamowicz II Work Phone: 1(876) 165-782002-27-2023 08:36-0500 Heart rate65 /minDO Isaías Adamowicz II Work Phone: 1(415) 967-706902-27-2023 08:36-0500 Respiratory rate20 /minDO Isaías Adamowicz II Work Phone: 1(559) 799-234402-27-2023 08:36-0500 SaO2% (BldA) [Mass fraction]99 %DO Isaías Adamowicz II Work Phone: 1(981) 876-490302-27-2023 08:36-0500 Systolic blood bziyrphq077 mm[Hg]DO Isaías Adamowicz II Work Phone: 1(433)643-1102-13-2023 08:43-0500 Body dgstibvfrwc80.1 [degF]DO Isaías Adamowicz II Work Phone: 1(802)105-1302-13-2023 08:43-0500 Body dyvhtv20.9 kgDO Isaías Adamowicz II Work Phone: 1(877)22568 [address]02-13-2023 08:43-0500 Diastolic blood yctviceh87 mm[Hg]DO Isaías Adamowicz II Work Phone: 1(309)482-8502-13-2023 08:43-0500 Heart rate60 /minDO Isaías Adamowicz II Work Phone: 1(415)894-8802-13-2023 08:43-0500 Respiratory rate20 /minDO Isaías Adamowicz II Work Phone: 1(585)779-9902-13-2023 08:43-0500 SaO2% (BldA) [Mass fraction]100 %DO Isaías Adamowicz II Work Phone: 1(322) 512-262902-13-2023 08:43-0500 Systolic blood kpidzlbh055 mm[Hg]DO Isaías Adamowicz II Work Phone: 1(744)130-2101-16-2023 09:43-0500 Body .8 [degF]DO Isíaas Adamowicz II Work Phone: 1(529) 928-463201-16-2023 09:43-0500 Body zluffn73.7 kgDO Isaías Muñozowicz II Work Phone: 1(452) 588-316201-16-2023 09:43-0500 Diastolic blood ewnytqnu46 mm[Hg]DO Isaías Adamowicz II Work Phone: 1(564) 539-771701-16-2023 09:43-0500 Heart rate67 /minDO Isaías Adamowicz II Work Phone: 1(326) 115-400401-16-2023 09:43-0500 Respiratory rate16 /minDO Isaías Muñozowicz II Work Phone: 1(418) 174-848501-16-2023 09:43-0500 SaO2% (BldA) [Mass fraction]98 %DO Isaías Adamowicz II Work Phone: 1(264) 256-610001-16-2023 09:43-0500 Systolic blood pztrtugx473 mm[Hg]DO Isaías Adamowicz II Work Phone: 1(207) 233-484712-21-2022 12:23-0500 Body bzxigiybvrc35.9 [degF]DO Clint Jean Baptiste Work Phone: 1(600) 519-227112-21-2022 12:23-0500 Diastolic blood zsvebvrb41 mm[Hg]DO Clint Marcpapa Work Phone: 1(966) 191-837812-21-2022 12:23-0500 Heart rate60 /MagdalenaO Clint Alejandros Work Phone: 1(529) 326-722912-21-2022 12:23-0500 Respiratory rate18 /MagdalenaO Clint Alejandros Work Phone: 1(707) 392-479012-21-2022 12:23-0500 SaO2% (BldA) [Mass fraction]97 %DO Clint Alejandros Work Phone: 1(185) 576-115412-21-2022 12:23-0500 Systolic blood nsptrnhy116 mm[Hg]DO Clint Alejandros Work Phone: 1(101)21098 [address]12-19-2022 10:02-0500 Body zrkord89 kgDO Clint Alejandros Work Phone: 1(725)78298 [address]12-19-2022 09:08-0500 Body hhgjhzamrhd62 [degF]DO Clint Alejandros Work Phone: 1(717)[address]12-19-2022 09:08-0500 Body kgDO Clint Alejandros Work Phone: 1(534)47998 [address]12-19-2022 09:08-0500 Diastolic blood mpuebghl62 mm[Hg]DO Clint Alejandros Work Phone: 1(213)63298 [address]12-19-2022 09:08-0500 Heart rate61 /MagdalenaO Clint Alejandros Work Phone: 1(060)93898 [address]12-19-2022 09:08-0500 Respiratory rate16 /MagdalenaO Clint Alejandros Work Phone: 1(664)05898 [address]12-19-2022 09:08-0500 SaO2% (BldA) [Mass fraction]98 %DO Clint Jean Baptiste Work Phone: 1(889)78298 [address]12-19-2022 09:08-0500 Systolic blood soypqzkp020 mm[Hg]DO Clint Alejandros Work Phone: 1(462)24598 [address]11-28-2022 08:08-0500 Body euzupy67.1 kgDO Clint Jean Baptiste Work Phone: 1(395)60998 [address]11-28-2022 08:08-0500 Diastolic blood khyghxcv97 mm[Hg]DO Clint Alejandros Work Phone: 1(444)18[address]11-28-2022 08:08-0500 Heart rate56 /minDO Clint Alejandros Work Phone: 1(341)77898 [address]11-28-2022 08:08-0500 Respiratory rate20 /minDO Clint Alejandros Work Phone: 1(227) 957-336411-28-2022 08:08-0500 SaO2% (BldA) [Mass fraction]98 %DO Clint Jean Baptiste Work Phone: 1(132) 542-244811-28-2022 08:08-0500 Systolic blood kcguslem379 mm[Hg]DO Clint Jean Baptiste Work Phone: 1(677) 962-221210-28-2022 14:40-0400 Body qqejxn523.56 cmDO Clint Jean Baptiste Work Phone: Encounters Encounter DateEncounter TypeCare ProviderFacilityStart: 99-76-8205jvbsvhmtjv Isaías Jordan IIFacility:[facility]: 05-09-2025 End: 52-29-0117Gyaqoknj Result EncounterIsaías Jordan DO Work Phone: noms External Department UnsolicitedStart: 05-09-2025 End: 99-59-5307Trpzivlr Result EncounterIsaías Jordan DO Work Phone: noms External Department UnsolicitedStart: 05-06-2025 ambulatoryMichael NILLFacility:FTMCStart: 05-05-2025 End: 42-13-4221ihvkgdvxvcOgwdjw E Braun MD Work Phone: 0(560)480-1393317-3857-[facility] AmbulatoryStart: 05-05-2025 End: 26-73-1326Yvahjzz encounter Jon Mims APRN-[facility] Work Phone: Start: 36-38-5318Qvn-patient / Non-visitIsaías Jordan II DO-[facility] Work Phone: Start: 92-14-6443Yjq-patient / Non-visitIsaías Jordan II DO-[facility] Work Phone: Start: 04-20-2025 End: 50-59-1017yvrnauwyxgQytsknq R NILLFacility:CD:[id number]: 04-13-2025 End: 19-59-0228whipolasxjDofcqtg R NILLFacility: [place]vueStart: 04-13-2025 End: 23-53-1207Pwtajff encounter procedureMichael R NILL [phone]-ScemlFirelands [facility] Dee Start: 04-11-2025 End: 88-59-0727idtvokzldcBZDCFBK R WEHBEMercy East Liverpool City Hospitaltart: 15-31-9100ngmhexehlkGvrdjtq NILLFacility: [place]walkStart: 04-11-2025 End: 18-95-5757pcyegjtxsfQLWKRW TOSCANMiddle Park Medical Center - Granbytart: 39-32-8930Pxg-patient / Non-visitOutside Provider-[facility] Work Phone: Start: 68-15-1770omzpmdsromIshjdyc NILLFacility: BethanieNaeemtart: 04-04-2025 End: 33-43-4942qgiqcobscxBedxoc E Braun MD Work Phone: [facility] Work Phone: Start: 04-04-2025 End: 32-45-8228Qkkzgit encounter procedureIsaías Jordan II -[facility] Work Phone: Start: 03-30-2025 End: 60-64-3334Hskzhuuk Result EncounterRandy Turner LOG DRIVER Work Phone: NOIZ External Department UnsolicitedStart: 03-30-2025 End: 37-74-1164Ouuxhesc Result EncounterRandy Turner LOG DRIVER Work Phone: noms External Department UnsolicitedStart: 03-21-2025 Registered RecurringRandy Turner [facility] Work Phone: Start: 03-21-2025 End: 30-24-1918hanftwafzkXgncxa E Braun MD Work Phone: [facility] Work Phone: Start: 03-21-2025 End: 49-50-6457Oinoplz encounter procedureYoshivanda Arnel Jordan II [facility] Work Phone: Start: 83-13-9000Pwn-patient / Non-visitYoshivanda Jordan II DO-[facility] Work Phone: Start: 02-01-2025 End: 35-97-6474jhnxbgywbqMaqgqb E BraunFacility:[facility] Centertart: 96-98-7629Liw-patient / Non-visitCatherine L Ly DO-[facility] Work Phone: Start: 58-72-4377Saf-patient / Non-visitSandro Chin MD-[facility] Work Phone: Start: 12-21-2024 End: 28-73-9631Dncvgp flowsheetHivicky Martinez MD Work Phone: noms CI ENTStart: 12-21-2024 End: 26-51-1711Rsswyj flowsheetConstantino Martinez MD Work Phone: [facility] CI ENTStart: 12-21-2024 End: 74-16-9872Pcxazs outpatient new 30 minutesHivicky Martinez MD Work Phone: noms CI ENTComment on above:Globus sensation (Primary Dx); LPRD (laryngopharyngeal reflux disease)Start: 12-21-2024 End: 58-80-6951nsjmakihtbAFJSBX H TIMMISNot AvailableStart: 12-20-2024 End: 35-21-8891hsaaxqjfnyPjrgeq E BraunFacility:[facility] Centertart: 12-20-2024 End: 46-36-9748Htakfonb ReferredSandro Chin MD-[facility] Work Phone: Start: 12-20-2024 End: 12-73-4027Hshsswf encounter procedureSandro Chin MD-[facility] Work Phone: Start: 12-20-2024 End: 23-02-4923Uhaabjg encounter statusSandro Chin [facility] Hospitaltart: 12-14-2024 End: 16-28-3713mqvevobxrxPomsvobosACMC Healthcare System [facility] Work Phone: Start: 12-14-2024 End: 67-83-8004Vjakkax encounter procedureAtrium Health [facility] Work Phone: Start: 00-91-5339Sjyayxvkem RecurringMichael Grillis DO Work Phone: [facility] Work Phone: Start: 09-06-2024 End: 08-04-0423cmdxnimanpWtiyggf E Grillis DO Work Phone: [facility] Work Phone: Start: 09-06-2024 End: 04-76-7674Cazpjeq encounter procedureMichael Grillis DO Work Phone: [facility] Work Phone: Start: 07-15-0097Opx-patient / Non-visitMichael Grillis DO Work Phone: [facility] Work Phone: Start: 07-01-2024 End: 77-27-9565Mlgyaey encounter procedureMichael Grillis DO Work Phone: [facility] Work Phone: Start: 03-25-2024 End: 54-74-6047qovyrzjegsDRAKJOW A CARRFREDDIEOhioHealth [facility] Start: 03-25-2024 End: 85-66-3184Mduqbg follow up visit related to original Gina Howard [employer]OTWEAR STITCHER-PLASTER DIE MAKER Work Phone: [facility] General SurgeryComment on above: History of removal of Port-a-Cath (Primary Dx); History of colon cancerStart: 03-15-2024 End: 28-64-8855frwkbekgepIRDTUHLJefferson Healthcare Hospital Amb[facility] Start: 03-15-2024 End: 11-40-5314Wqxzxbg encounter procedureSherwinhaebowen Klever Grillis DO Work Phone: [facility] SurgeryComment on above: History of colon cancer (Primary Dx)Start: 03-03-2024 End: 26-16-2209mbtprzolueZTNWUJLJefferson Healthcare Hospital Ambulatory [facility] Start: 03-03-2024 End: 99-82-2122Vuvsij outpatient visit 15 minutesMicarleth Marcillis DO Work Phone: [facility] SurgeryComment on above: History of colon cancer (Primary Dx)Start: 01-19-2024 End: 54-29-3147kaacwibgwlBJ Clint Jean Baptiste Work Phone: [facility] Work Phone: Start: 01-19-2024 End: 33-22-2565Fbtthvo encounter procedureDO Clint Jean Baptiste Work Phone: [facility] Work Phone: Start: 09-12-7932Oesawdkplb RecurringDO Clint Jean Baptiste Work Phone: [facility] Work Phone: Start: 45-64-6519Qer-patient / Non-visitDO Clint Jean Baptiste Work Phone: [facility] Work Phone: Start: 69-74-9962Akn-patient / Non-visitDO Clint Jean Baptiste Work Phone: firneelyignacio Physician GroupM[facility] Work Phone: Start: 12-94-0019Avgkpkw encounter statusDO Clint Jean Baptiste Work Phone: [facility] Centertart: 11-17-2023 End: 05-91-4708tsuqijmpdhGW Clint Jean Baptiste Work Phone: [facility] Work Phone: Start: 11-17-2023 End: 35-67-1575Gyvqycn encounter procedureDO Clint Jean Baptiste Work Phone: [facility] [facility] Work Phone: Start: 94-19-6815Xsktetjsfi RecurringDO Clint Jean Baptiste Work Phone: [facility] Work Phone: Start: 09-26-2023 End: 92-78-7549iuhfxtsphrAM Michael E Grillis Work Phone: [facility] Work Phone: Start: 09-26-2023 End: 53-33-4083Yjybnfo encounter procedureDO Clint Jean Baptiste Work Phone: [facility] Work Phone: Start: 79-05-4359Jcu-patient / Non-visitDO Clint Jean Baptiste Work Phone: [facility] Work Phone: Start: 05-19-2023 End: 50-99-9316aslbvajrwkQsdinb Braun Other [facility] [employer] Other Start: 15-04-9346Hdnadp outpatient visit 15 minutes Sandro Hamilton [facility] Northwesttart: 11-16-2022 End: 18-81-9064lnqzcwpviyBLVTQRU J ADAMOWICZFacility:J8Pjymo: 11-02-2022 End: 74-37-9120ytbtzcmmzoYYPSKSA J ADAMOWICZFacility:Q2Vkvdy: 10-19-2022 End: 27-48-4335tpfivthrswGT MARCIA E BRAUNFacility:Q6Zcxef: 09-14-2022 End: 19-97-1316nvzuqzpdxeGEHGRAE J ADAMOWICZFacility:G6Bjdyg: 09-02-2022 End: 87-02-5676drtntetjrvLAT [facility] Work Phone: Start: 09-02-2022 End: 19-36-8200Icjaksksmr RecurringDO Isaías Adamowicz II Work Phone: [facility] Work Phone: Start: 09-01-2022 End: 10-22-7311rjqngplvrsXY SANDRO CHINFacility:R3Fhowb: 08-31-2022 End: 61-23-0719eyalvqjzvpPKCEBRC J JULIANFacility:G6Eylue: 08-19-2022 End: 58-83-7834ksjkuevhioNXH [facility] Work Phone: Start: 08-19-2022 End: 15-67-5680Dunaunhpax RecurringDO Isaías Adamowicz II Work Phone: [facility] Work Phone: Start: 08-16-2022 End: 22-81-2872vyrgvaxixfSODOVRW J ADAMOWICZFacility:E9Hqhwj: 08-03-2022 End: 77-85-6694yahncemyvyJCWKWOV J JULIANFacility:L7Ostqb: 07-22-2022 End: 66-13-6469avwvhucavfTWP [facility] Work Phone: Start: 07-22-2022 End: 34-36-8952Jitkhuenxy RecurringDO Isaías Adamowicz II Work Phone: [facility] Work Phone: Start: 07-20-2022 End: 20-24-8473tptmejetwxMRHPBGO Arnel JORDANFacility:I6Jziaf: 07-06-2022 End: 45-30-9685tuuseljyipYL Clint Jean Baptiste Work Phone: [facility] Work Phone: Start: 07-06-2022 End: 38-87-0426Ywwgsohc ReferredDO Clint Jean Baptiste Work Phone: [facility] [place] Work Phone: Start: 63-31-8041Qtvzqrvezz Sharon Jean Baptiste Work Phone: [facility] Work Phone: Start: 06-24-2022 End: 08-16-3366umgiovkklrDU Michael E Grillis Work Phone: [facility] Work Phone: Start: 06-24-2022 End: 69-16-4293Jpzxrkzlvz RecurringDO Clint Jean Baptiste Work Phone: [facility] Center[facility]: 06-24-2022 End: 17-28-1073ctwpeawvrgIJ Michael E Grillis Work Phone: [facility] Work Phone: Start: 06-24-2022 End: 72-24-9735Ujfzkynsis Sharon Jean Baptiste Work Phone: [facility] Center[facility]: 06-22-2022 End: 78-23-2587pnulutgtnuCHESIDI J ADAMOWICZFacility:R8Mejep: 06-08-2022 End: 10-90-2719xgbqaitxecCBHNYDX J ADAMOWICZFacility:T4Hpiad: 06-03-2022 End: 36-54-6964ctywnqmkupOF Michael E Grillis Work Phone: [facility] Work Phone: Start: 06-03-2022 End: 20-85-0530Lfscqihvra Sharon Jean Baptiste Work Phone: [facility] Center[facility]: 06-01-2022 End: 26-06-1483jgurjwomdnKPKNNAB J ADAMOWICZFacility:A5Qwjbz: 05-22-2022 End: 61-04-9081kuydhbobdkWEZVLOX J ADAMOWICZFacility:I3Ibohf: 05-21-2022 Encounter for preprocedural laboratory examinationDR CLINT ALEJANDROS .[facility]: [facility] End: 32-12-6936xkvuxjkkbzIC CLINT ALEJANDROS .Facility:Y4Yvcyy: 05-18-2022 End: 29-74-0881Akveytuag for preprocedural laboratory examinationDR CLINT ALEJANDROS .Facility:A5Rcqjn: 04-10-2022 End: 51-33-7854Utlmnlmvpg and management of inpatientDR SANDRO CHIN Facility:V8Narjf: 04-08-2022 End: 10-61-5819sevjjdefvoVL CLINT ALEJANDROS .Facility:F4Tcapn: 04-04-2022 Encounter for preprocedural cardiovascular examinationDR CLINT JEAN BAPTISTE .[facility] HospitalStart: 79-55-3969Tqvnvirsz for preprocedural laboratory examinationDR CLINT ALEJANDROS .[facility]Start: 04-02-2022 End: 38-06-6715bavysmyntoDD CLINT ALEJANDROS .Facility:N0Zkprc: 04-02-2022 End: 38-60-7603Rgherdrhq for preprocedural cardiovascular examinationDR CLINT ALEJANDROS .Facility:J6Vwstk: 03-27-2022 End: 28-28-9691kjrvmcnbbrCN CLINT ALEJANDROS .Facility:N3Mdevr: 03-13-2022 End: 03-17-0277igobzykzywRR CLINT ALEJANDROS .Facility:Z1Etqpr: 03-09-2022 End: 17-60-9858hfxuxyngljLP CLINT ALEJANDROS .Facility:B3Uwycx: 01-09-2022 End: 55-87-4324cafizmjwoaMW SANDRO CHINFacility:H1 Procedures DateProcedureProcedure DetailPerforming ClinicianStart: 90-71-2279Ubjgfrcryb other sourceTimvanda Jordan DO Work Phone: Start: 36-52-7395QFGWD PROTEIN, URINETimvanda Jordan DO Work Phone: Start: 30-72-0974ABTXUYT POCT GLUCOMETERSRandy Betancur Johnny LOG DRIVER Work Phone: Start: 31-77-4702Rwebokusagnrwkum antigen Harish Chin MD Work Phone: Comment on above:Nonsmokers <3.9 Smokers <5.6Roche Diagnostics Electrochemiluminescence Immunoassay(ECLIA)Values obtained with different assay methods or kitscannot be used interchangeably. Results cannot beinterpreted as absolute evidence of the presence orabsence of malignant disease.Performed at: [facility] [place], [place] [id number] Director: Edilson Saunders PhD, Phone: [phone]: 08-24-2024 Carcinoembryonic antigen ceaMicyavapai regional medical centerl Monicoillis DO Work Phone: Comment on above:Nonsmokers <3.9 Smokers <5.6Roche Diagnostics Electrochemiluminescence Immunoassay(ECLIA)Values obtained with different assay methods or kitscannot be used interchangeably. Results cannot beinterpreted as absolute evidence of the presence orabsence of malignant disease.Performed at: [facility] [place], [place] [id number] Director: Edilson Saunders PhD, Phone: [phone]: 03-15-2024 Removal of implantable venous access portMichael NILL Start: 85-60-9263Iigxlsbmyhxobtfi antigen Frank Jean Baptiste Work Phone: Comment on above:Nonsmokers <3.9 Smokers <5.6Roche Diagnostics Electrochemiluminescence Immunoassay(ECLIA)Values obtained with different assay methods or kitscannot be used interchangeably. Results cannot beinterpreted as absolute evidence of the presence orabsence of malignant disease.Performed at: [address] [place], [place] [id number] Director: Edilson Saunders PhD, Phone: [phone]: 09-18-2023 Carcinoembryonic antigen Frank Jean Baptiste Work Phone: Comment on above:Nonsmokers <3.9 Smokers <5.6Roche Diagnostics Electrochemiluminescence Immunoassay(ECLIA)Values obtained with different assay methods or kitscannot be used interchangeably. Results cannot beinterpreted as absolute evidence of the presence orabsence of malignant disease.Performed at: [facility] [address] [id number] Director: Edilson Saunders PhD, Phone: [phone]: 05-07-2023 ColonoscopyMichael Grillis DO Work Phone: Start: 20-18-2651UstqflgpdfeTjqpoiu NILL Start: 63-96-7043Rvnnyosqa of implantable venous access device using fluoroscopic guidanceMichael NILL Start: 52-09-9575Vgqdsffyu of Sigmoid Colon, Open ApproachISAÍAS JORDANStart: 30-08-7900Mjgtjor colectomyMichael NILL Start: 07-91-8615OmklcoiwvvtIpyjryt NILL Cesarean sectionMichael NILL EsophagogastroduodenoscopyMichael NILL Extraction of wisdom toothMichael NILL Repair of left inguinal herniaMichael NILL Plan of Treatment DateCare ActivityDetailAuthorStart: 13-57-0128Ybargozqq for malignant neoplasm of colonNOMS HealthcareStart: 47-10-5830Nvxvutdgn for malignant neoplasm of colonColonoscopyProDunlap Memorial Hospital SystemStart: 79-67-1644GybnmxmenUniversity Hospitals Ahuja Medical Centertart: 57-35-6009TmgjioeekUniversity Hospitals Ahuja Medical Centertart: 97-23-8055quqlrwxazqDfvkjmrawkNanpnAspen Valley Hospitaltart: 04-04-2025 [facility] Work Phone: Start: 06-37-7720Qoxurwr referralOhiohealth Marion General Hospital Work Phone: Start: 92-34-4087Vgmvf BMI ScreeningAdult BMI ScreeningProSt. Vincent'S St. Clair Health SystemStart: 95-87-5536Lbqqpqh ScreeningTobacco ScreeningMercy Health Clermont Hospital Health SystemStart: 91-53-6948FINAJ-19 Vaccine ( season)COVID-19 Vaccine ()NOMS HealthcareStart: 03-07-2025 Influenza vaccinationInfluenza Vaccine (#1)NOM HealthcareStart: 05-13-0175Vtnmi BMI ScreeningAdult BMI ScreeningLima City Hospital SystemStart: 86-72-2833Fibhesl ScreeningTobacco ScreeningLima City Hospital SystemStart: 02-01-2025 End: 83-51-2362MtuunwzujUniversity Hospitals Ahuja Medical Centertart: 12-21-2024 End: 38-60-7868Atqdfel encounter cjuyrkicm39/17/2025 8:40 AM EDT Office Visit [facility] [address] [facility] [address] [place] [address] Constantino Martinez MD [address] [facility] [address] [place] [address] ArrivedNOMS CI ENTComment on above:ArrivedStart: 23-51-1204Zsyufve referralOhiohealth Marion General Hospital Work Phone: Start: 03-25-2024 End: 20-97-5031Mxrnlkv encounter febpbofki94/19/2024 11:00 AM EDT Office Visit [facility] [address] [place] [address] Masha Howard, OLIVIA-JHON [address] [place] [address] [facility] SurgeryStart: 03-15-2024 End: 39-32-5130Bqwlsys encounter acvdjhesz03/09/2024 1:30 PM EDT Office Visit [facility] [address] [facility], [id number] Clint Jean Baptiste, [address] [place] [address] [facility] SurgeryStart: 49-12-5697YTLJP-19 Vaccine ( season)COVID-19 Vaccine ()ProMNorthwest Medical Center SystemStart: 86-59-8612Zzkdhclbm vaccinationInfluenza VaccineLima City Hospital SystemStart: 66-04-0643MhehrdyWilson Memorial Hospital Work Phone: Start: 22-77-1769Vnbkaaj [place] Work Phone: Start: 86-96-2924FTLOJ-19 Vaccine () COVID-19 Vaccine ()ProMNorthwest Medical Center SystemStart: 11-18-2022 [facility] CenterStart: 27-86-8965BhwkjfpliDayton Children'S Hospital CenterStart: 39-84-0840HwttoywcqDayton Children'S Hospital CenterStart: 10-21-2022 [facility] CenterStart: 80-73-3981VnpdqlarxDayton Children'S Hospital CenterStart: 20-81-8047UzmvtdpbxDayton Children'S Hospital CenterStart: 09-23-2022 [facility] CenterStart: 24-74-6256AmxvnlosoDayton Children'S Hospital CenterStart: 81-39-8800BkwalqnsfDayton Children'S Hospital CenterStart: 09-02-2022 [facility] CenterStart: 57-20-9394WjhjtaqsgDayton Children'S Hospital CenterStart: 72-70-7748EdortlxquDayton Children'S Hospital CenterStart: 08-05-2022 [facility] CenterStart: 92-74-2262PvgzqfkrtDayton Children'S Hospital CenterStart: 71-18-7766NogngloxgDayton Children'S Hospital CenterStart: 06-26-2022 [facility] CenterStart: 65-77-4122ZjlhzzrokDayton Children'S Hospital CenterStart: 90-99-5734Mrwduklivqboh metabolic 2000 panel - Serum or Plasma [facility] Medical Centertart: 56-51-1414Orttbgtgn measurementUniversity Hospitals Ahuja Medical Centertart: 35-50-2899JytixjzlrUniversity Hospitals Ahuja Medical Centertart: 59-49-1767YjjionrlyUniversity Hospitals Ahuja Medical Centertart: 35-91-1452VvoodjbblUniversity Hospitals Ahuja Medical Centertart: 85-23-1867TmsdonnptUniversity Hospitals Ahuja Medical Centertart: 15-47-5508Fpwkmdjee for malignant neoplasm of breastMammogramNOMS Healthcare Start: 87-69-7222Urampajld for malignant neoplasm of cervixNOMS HealthcareStart: 82-54-8066Gymlywyii for malignant neoplasm of cervixPap SmearLima City Hospital SystemStart: 58-33-5494Fiwvwtyvqyskfx of varicella zoster vaccineZoster (Shingles) Vaccine (1 of 2)[facility] Healthtart: 59-92-3236RQbZ,Tdap and Td Vaccines (1 - Tdap)DTaP,Tdap and Td Vaccines (1 - Tdap)[facility] Healthtart: 73-38-3634Dkbtehekw B Vaccines (1 of 3 - 19+ 3-dose series) Hepatitis B Vaccines (1 of 3 - 19+ 3-dose series)[facility] CenterStart: 41-43-4655Apnai BMI Follow Up PlanAdult BMI Follow Up PlanMaria Parham Healthtart: 65-52-7641Myayanlxov ScreeningDepression ScreeningMaria Parham Healthtart: 05-07-5951YTpW/Tdap/Td Vaccines (1 - Tdap)DTaP/Tdap/Td Vaccines (1 - Tdap)[facility] HealthcareStart: 15-10-3854CWW Vaccines (1 of 1 - Standard series) MMR Vaccines (1 of 1 - Standard series)[facility] CenterStart: 52-36-0328Vtuqmeaxz for malignant neoplasm of colonNOMS HealthcareAlanine aminotransferase [Enzymatic activity/volume] in Serum or Plasma by No addition of P-'-[facility] Work Phone: Alanine aminotransferase [Enzymatic activity/volume] in Serum or Plasma by No addition of [facility] Albumin [Mass/volume] in Serum or PlasmaDayton Children'S Hospital Ctr Work Phone: Albumin [Mass/volume] in Serum or PlasmaAlbumin/Globulin ratioKindred Hospital Lima Work Phone: Albumin/Globulin ratioAlkaline phosphatase [Enzymatic activity/volume] in Serum or Plasma [facility] Work Phone: Alkaline phosphatase [Enzymatic activity/volume] in Serum or PlasmaAnion gap measurementKindred Hospital Lima Work Phone: Anion gap measurement Aspartate aminotransferase [Enzymatic activity/volume] in Serum or Plasma [facility] Work Phone: Aspartate aminotransferase [Enzymatic activity/volume] in Serum or PlasmaBasophil countKindred Hospital Lima Work Phone: Basophil percent differential countKindred Hospital Lima Work Phone: Bilirubin.total [Mass/volume] in Serum or Plasma [facility] Work Phone: Bilirubin.total [Mass/volume] in Serum or Plasma Calcium [Mass/volume] in Serum or Plasma [facility] Work Phone: Calcium [Mass/volume] in Serum or [facility] HospitalCarbon dioxide, total [Moles/volume] in Serum or Plasma [facility] Work Phone: Carbon dioxide, total [Moles/volume] in Serum or [facility] HospitalCarcinoembryonic Ag [Mass/volume] in Serum or [facility] HospitalChloride [Moles/volume] in Serum or PlasmaKindred Hospital Lima Work Phone: Chloride [Moles/volume] in Serum or [facility] HospitalChoriogonadotropin ( test) [Presence] in Urine Comprehensive metabolic 1999 panel - Serum or PlasmaComprehensive metabolic 1999 panel - Serum or PlasmaComprehensive metabolic 1999 panel - Serum or [facility] HospitalComprehensive metabolic 1999 panel - Serum or [facility] HospitalComprehensive metabolic 1999 panel - Serum or [facility] Comprehensive metabolic 1999 panel - Serum or [facility] HospitalComprehensive metabolic 1999 panel - Serum or [facility] HospitalComprehensive metabolic 1999 panel - Serum or [facility] HospitalComprehensive metabolic 1999 panel - Serum or Plasma Comprehensive metabolic 1999 panel - Serum or [facility] HospitalComprehensive metabolic 1999 panel - Serum or [facility] HospitalComprehenve metabolic 1999 panel - Serum or [facility] HospitalComprehensive metabolic 1999 panel - Serum or [facility] HospitalComprehensive metabolic 1999 panel - Serum or [facility] Comprehensive metabolic 1999 panel - Serum or [facility] Systemhenve metabolic 1999 panel - Serum or [facility] HospitalCommarshfield medical center - ladysmith rusk countyhenve metabolic 1999 panel - Serum or [facility] HospitalCreatinine and Glomerular filtration rate.predicted panel - Serum, Plasma or [facility] Work Phone: Creatinine and Glomerular filtration rate.predicted panel - Serum, Plasma or [facility] CenterCT Abdomen and Pelvis W contrast [facility] SystemCT Abdomen and Pelvis W contrast [facility] SystemCT Abdomen and Pelvis W contrast IV CT Abdomen and Pelvis W contrast [facility] SystemCT Abdomen and Pelvis W contrast [facility] SystemCT Abdomen and Pelvis W contrast [facility] SystemCT Chest W contrast [facility] SystemCT Chest W contrast [facility] SystemCT Chest W contrast [facility] SystemCT Chest W contrast [facility] SystemCT Chest W contrast [facility] SystemCT Chest W contrast [facility] SystemEosinophil percent differential countDayton Children'S Hospital Ctr Work Phone: Eosinophils [#/volume] in [facility] Work Phone: Erythrocyte mean corpuscular volume determination [facility] Work Phone: Erythrocytes [#/volume] in BloodDayton Children'S Hospital Ctr Work Phone: Globulin [Mass/volume] in SerumDayton Children'S Hospital Ctr Work Phone: Globulin [Mass/volume] in SerumGlucose [Mass/volume] in Serum or PlasmaDayton Children'S Hospital [facility]tr Work Phone: Glucose [Mass/volume] in Serum or PlasmaHematocrit [Volume Fraction] of BloodDayton Children'S Hospital [facility]tr Work Phone: Hemoglobin [Mass/volume] in BloodDayton Children'S Hospital Ctr Work Phone: Hemoglobin distribution, width determinationDayton Children'S Hospital [facility]tr Work Phone: Leukocytes [#/volume] in BloodDayton Children'S Hospital Ctr Work Phone: Lymphocyte countDayton Children'S Hospital Ctr Work Phone: Lymphocyte percent differential countDayton Children'S Hospital Ctr Work Phone: Magnesium measurement Magnesium measurementMagnesium measurement Mean corpuscular hemoglobin concentration determinationDayton Children'S Hospital Ctr Work Phone: Mean corpuscular hemoglobin determinationDayton Children'S Hospital Ctr Work Phone: Measurement of renal functionDayton Children'S Hospital Ctr Work Phone: Measurement of renal functionMG Breast - bilateral Screening Monocyte countDayton Children'S Hospital Ctr Work Phone: Monocyte percent differential countDayton Children'S Hospital Ctr Work Phone: Neutrophil countDayton Children'S Hospital Ctr Work Phone: Neutrophil percent differential countDayton Children'S Hospital Ctr Work Phone: Patient [facility] Work Phone: Patient [facility] Work Phone: Platelet mean volume determinationDayton Children'S Hospital Ctr Work Phone: Platelets [#/volume] in BloodDayton Children'S Hospital Ctr Work Phone: Potassium [Moles/volume] in Serum or PlasmaDayton Children'S Hospital Ctr Work Phone: Potassium [Moles/volume] in Serum or [facility] HospitalProtein [Mass/volume] in Serum or [facility] Work Phone: Protein [Mass/volume] in Serum or [facility] Memorial Hospitalodium [Moles/volume] in Serum or [facility] Work Phone: Sodium [Moles/volume] in Serum or [facility] HospitalUrea nitrogen [Mass/volume] in Serum or [facility] Work Phone: Urea nitrogen [Mass/volume] in Serum or Plasma [facility][note 2] Immunizations Immunization DateImmunizationNotesCare GxapgevoWbttevtv10-64-1824sdhauxrgs virus vaccine, unspecified formulationRandy Turner NP Work Phone: [facility] Health CenterTasjzgmyiz52-33-6518FSCD-AsH-1 (COVID-19) mRNAMUL.ORD!l51593Aaneytl NILL [phone]-ObjwaFirelands Regional Medical Center South Campus General Surgery [place] 29-38-1269GHQA-CoV-2 (COVID-19) mRNA-1273 vaccineMichael NILL [phone]-WoszdLima Memorial Hospital Surgery [place] 55-80-9419HMAP-CoV-2 (COVID-19) mRNA-1273 vaccineMichael NILL [phone]-MegzmLima Memorial Hospital Surgery [place] 79-58-5789KLXI-CoV-2 (COVID-19) mRNA-1273 vaccineMichael NILL [phone]-LhmomLima Memorial Hospital Surgery [place] Payers DatePayer CategoryPayerPolicy [id number] Health Insurance [id number] [facility] Member Subscriber Plan / Payer (Effective 2022-) Name: Shasta Jacobson Member ID: [id number] Relation to Subscriber: Self Name: Shasta Jacobson Subscriber ID: [id number] Payer ID: Not on file Type: Not on file Address: [address] [id number] [facility] BLUE ACCESS (PPO) [id number] 2022- [phone] [address] [place] [id number] [id number] [id number]-[id number] 2.16.840.1.019505.3.579.2.04346-02-8137Pfiymwi1625286 2.16.840.1.246234.3.579.2.46138-44-0154Xfgqkci7593275 2.16.840.1.715787.3.579.2.21374-31-8352Fhnidkf1356325 2.16.840.1.816363.3.579.2.01876-70-8849Fijaeyj9753200 2.16.840.1.242931.3.57[id number] 2.16.840.1.417000.3.579.2.28655-87-6514Iwaibtd8137147 2.16.840.1.312443.3.57[id number] 2.16.840.1.742144.3.579.2.27969-06-1455Sfygbpb0045885 2.16.840.1.604603.3.579.[id number] 2.16.840.1.477521.3.579.2.30870-44-9006Rsghypl6993522 2.16.840.1.196887.3.579.2.3[id number] 2.16.840.1.501668.3.579.2.51354-55-4434Eubtzgi4712786 2.16.840.1.047969.3.579.2.71141-74-6791Moojbdi5073053 2.16.840.1.073413.3.579.2.49732-25-0523Nkcshyf3199120 2.16.840.1.729774.3.579.2.00652-54-8393Fjibewl7722104 2.16.840.1.331550.3.579.2.00479-09-0726Yrhocsb0608182 2.16.840.1.462237.3.579.[id number] 2.16.840.1.037406.3.57[id number] 2.16840.1.630597.3.579.2.23286-79-5067Wwwegje2802012 2.16840.1.207385.3.579.2.76261-98-5015Vfsieod2021393 2.16840.1.677844.3.579.2.65828-54-3507Kzpjftq3299937 2.16840.1.586733.3.579.2.95183-85-9491Uzgzozt4920518 2.16840.1.772175.3.579.2.66007-69-2858Rwsggjl2574426 2.16840.1.799331.3.579.2.23912-55-8049Arrctmc17290539 2.16840.1.027996.3.579.2.293933-71-5555Qfdgiqa08080900 2.16840.1.442434.3.579.2.01[id number] 2.16840.1.081478.3.57[id number] 2.16840.1.008954.3.579.2.95[id number] 2.16840.1.518867.3.57[id number] 2.16.840.1.291398.3.579.[id number] 2..840.1.374206.3.579.2.61399-18-7639Zixftoa89808621 2.16.840.1.205879.3.579.2.177Yd[id number] 2..840.1.65[id number] 2..840.1.155550.3.579.2.531 [id number] 2..840.1.727844.3.579.2.531 Social History DateTypeDetailFacilityStart: 05-27-2022 End: 38-97-5085Pevquxg smoking status NHISNever smoked tobacco (finding) [facility] Centertart: 46-96-1032Rkg Assigned At [facility] Hospitaltart: 03-03-2024 End: 30-88-9894Bad Assigned At [facility] [employer] Other Start: 35-09-3110Bwipjjp smoking status NHISEx-smoker ProMjackson hospital Health SystemHistory of tobacco useCurrent smokerProSt. Vincent'S St. Clair Health SystemHistory of tobacco useCigarette SmokerProDunlap Memorial Hospital SystemStart: 04-19-2022 End: 23-61-2609Mqtbddf use and exposureSmokeless tobacco non-userMercy Health Clermont Hospital Health SystemStart: 03-03-2024 End: 12-61-7796Oxbcjalhx beverage intakeCurrent drinker of alcohol (finding) [facility] SystemStart: 03-03-2024 End: 19-64-0301Muvxeaq of Social functionLima City Hospital SystemStart: 64-13-5530Oqlwsj the past 12 months we worried whether our food would run out before we got money to buy more.Never TrueProDunlap Memorial Hospital SystemStart: 58-55-1152Uimzabk Commentsmoked when patient was 18 for 6 monthsLima City Hospital SystemStart: 64-09-1485Tbsffmw CommentoccasionallyProSt. Vincent'S St. Clair Senexx SystemStart: 55-22-6139Cfq assigned at birthNot on filePorter Medical CenterNext Generation Systems SystemStart: 09-06-2024 End: 45-86-4490MqbAgezkb (finding)Tobacco smoking status NHISTobacco smoking consumption unknownWestern Missouri Mental Health CenterStart: 65-25-6468Nnudokx CommentoccCENTRAL VALLEY MEDICAL CENTER HealthcareSexual OrientationFirelands Regional Medical Center South Campus General Surgery [place] NEGATED: Highlighted [facility] Goals DatePatient GoalDesired Activity/State Clinical Notes 04-21-2021 to 04-13-2025 Note Date & EwvoYhykKmgfvnxl35-71-3137 NoteGeneral Surgery Office/Clinic Note Chief Complaint consultation for port placement HPI Staff 60 year old female presents on consultation from Dr. Jordan for port placement due to recurrent colon carcinoma. Previous left port placement completed 05/2022 and removal 03/2024. History of Present Illness 60 yo female with h/o GERD, anxiety, glaucoma, recurrent colon cancer, referred for yrdrob-t-aswv insertion; patient has h/o sigmoid colectomy in [...] Malignant neoplasm of colon, unspecified) plan right imwrgt-d-byzi insertion under anesthesia; informed consent obtained. Ancef [...] Father. Immunizations Vaccine Date Status SARS-CoV-2 (COVID-19) mRNAMUL.ORD![id number] 05/16/2022 Recorded SARS-CoV-2 (COVID-19) mRNA-1273 vaccine 04/27/2021 Recorded SARS-CoV-2 (COVID-19) mRNA-1273 vaccine 08/02/2020 Recorded SARS-CoV-2 (COVID-19) mRNA-1 (more content not included)...[facility] HospitalComment on above:Result Comment: Electronically Signed By: DAGMAR EMMANUEL, Clint Muhammad\Date and Time Signed: 04/13/25 14:21 [id number] History of Present illness Narrative* Constantino Martinez [...] gland hypertrophy 12/20/2024 Situational anxiety 12/20/2024 bleeding ([facility]) 05/15/2022 Resolved Ambulatory Problems Diagnosis Date [...] 4 weeksif no improvement. documented in this encounterWestern Missouri Mental Health CenterFsgttuztyn10-39-5138 Chief complaint+Reason for visit Narrative* Chief Complaint [...] 10:3 7am Screening mammogram for breast cancer [facility] 2024 10:37am Wellness examination December 20, 2024 10: 37am [facility] Work Phone: 1(366) 994-927806-10-2025 Evaluation note* Diagnosis Onset Date Resolution Status Admit Date GERD (gastroesophageal reflux disease) acuteJune 2024 9:27amPharyngitis, chronicacuteJune 2024 9:27amGlobus sensationacuteJune 2024 10:37amScreening mammogram for breast canceracute December 20, 2024 10:37amWellness examinationacuteJune 2024 10:37am [facility] Work Phone: 1(888) 193-472912-26-2024 Evaluation note* Diagnosis Onset Date Resolution Status Admit Date Osteoarthritis acuteDecember 2023 10:57amSituational anxietyacuteDecember 2023 10:57amAbnormal LFTsacuteMarch 2024 1:19pmChemotherapy-induced peripheral neuropathyacuteMarch 2024 1:19pmColon canceracuteMarch 2024 1:19pm Encounter for chemotherapy managementacuteSeptember 06, 2024 1:19pm [facility] Work Phone: 1(313) 836-747809-19-2024 History of Present illness Narrative* RAEGAN Taylor - 03/25/2024 11:00 AM EDT Subjective Marysol Jcaobson is a 58 y.o. female status post [...] of removal of Port-a-Cath [Z98.890] RAEGAN TAYLOR [facility] [place] This note was created with the assistance of a speech recognition program. While intending to generate a timely document that accurately reflects the content of the visit, no guarantee can be provided that every grammatical or spelling mistake has been or will be identified or corrected. Thank you for your understanding. RAEGAN Taylor 03/25/24 1143 documented in this encounterDunlap Memorial Hospital09-09-2024 History of Present illness Narrative* Clint [...] weeks for suture removal. documented in this encounterDunlap Memorial Hospital08-28-2024 History of Present illness Narrative* Clint Jean Baptiste DO - 03/03/2024 10:15 AM EDT Images from the original note were not included. [facility] [address] [facility] [address] Progress NOTE CHIEF COMPLAINT Chief Complaint Patient [...] a history of colon cancer resected by hi April 10, 2022 at the [facility]. Her last colonoscopy was in May, and was normal. 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 MEDICATION Current Outpatient Medications: brimonidine [...] by mouth daily., Disp: , Rfl: omega 3-lej-wjr-fish oil (Fish OiL) 300-1,000 mg capsule, Take by mouth., Disp: , Rfl: omeprazole (PriLOSEC) 20 mg capsule, PATIENT REPORTS NEEDED , Disp: , Rfl: ALLERGY Allergies Allergen Reactions Hydrocodone Nausea And Vomiting Patient reports it was many years ago Codeine GI Disturbance MEDICAL HISTORY Past Medical History: Diagnosis Date [facility] ([facility] [facility] Female pelvic congestion syndrome 02/20/2023 Glaucoma of both eyes bleeding SURGICAL HISTORY Past Surgical History: Procedure Laterality Date SECTION HERNIA REPAIR inguinal hernia LEFT COLECTOMY SIGMOID COLON RESECTION BY DR JEAN BAPTISTE, AT [facility] WISDOM TOOTH EXTRACTION SOCIAL HISTORY Social [...] Referring and communicating with other health health careers instructor History of colon cancer [Z85.038] Clint Jean Baptiste DO This note was created with the assistance of a speech recognition program. While intending to generate a timely document that accurately reflects the content of the visit, no guarantee can be provided that every grammatical or spelling mistake has been or will be identified or corrected. Thank you for your understanding. [facility]* Encounter Date Diagnosis Assessment [...] for PT printed and given to pt. [employer] Other 09-18-2023 Progress note Author Isaías Jordan March 24, 2023 11:05amNote Date/TimeSeptember 2022 10:55[facility] [place] [address] Hem/Onc Follow Up Note - OP Signed Patient: Marysol Jacobson MR#: [id number] : 1965 Acct:[id number] Age/Sex: 57 / F Type: REG RCR [...] prior to f/u. f/u with me or water softener service supervisor in may/jun. renew her celebrex prescription. - History of Present Illness Chief Complaint: Patient is here for a 5 month follow up with labs and outside notes and radiology for review. 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 Labs reviewed on patient's chart from [place] - no significant cytopenias or electrolyte, renal/hepatic [...] Also engorged periuterine vessels. She has seen auricular detoxification specialist. she hadtransvaginal ultrasound. This will be monitored. Her PHOTOVOLTAIC SUBCONTRACTOR has offered her a dexa scan. Her [...] for coordination of care (as documented) and hgza-bb-owco counseling of patient and/or family. [facility] - Medical History Medical History: Medical History [...] Sodium 139, Potassium 4.3, Chloride 105, Carbon Iubhdfo12.3, Anion Gap 11.0, BUN 16, Creatinine 0.73, [...] % (Auto) 47.6, Lymph % (Auto) 39.4, [place] % (Auto) 9.0, Eos % (Auto) 2.8, Baso % (Auto) 1.2, Nucleat RBC Rel Count 0.1, Neut # (Auto) 2.4, Lymph # (Auto) 2.0, [place] # (Auto) 0.5, Eos # (Auto) 0.1, [...] by Isaías Jordan II, DO> 03/24/23 1105 [facility] Work Phone: 1(915) 367-471704-17-2023 Progress note Author Isaías Jordan October 21, 2022 8:50amNote Date/TimeApril 2022 8:38[facility] [place] [address] Hem/Onc Follow Up Note - OP Signed Patient: Marysol Jacobson MR#: [id number] : 1965 Acct:[id number] Age/Sex: 57 / F Type: REG RCR [...] 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 Labs reviewed on patient's chart from [place] - no significant cytopenias or electrolyte, renal/hepatic [...] for coordination of care (as documented) and udtv-my-lqis counseling of patient and/or family. [facility] - Medical History Medical History: Medical History [...] by Isaías Jordan II, DO> 10/21/22 0850 [facility] Work Phone: 1([phone]) 101-192202-27-2023 Progress note Author Isaías Jordan September 02, 2022 9:09amNote Date/TimeFebruary 2022 8:58am[facility] [address] [address] Hem/Onc Follow Up Note - OP Signed Patient: Marysol Jacobson MR#: [id number] : 1965 Acct:[id number] Age/Sex: 57 / F Type: REG RCR [...] 4 or 6 weeks with me or water softener service supervisor. - History of Present Illness Chief Complaint: Patient is here for a 2 week follow up with outside labs for review, prior to treatment today. States she is feeling remarkably better. 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 Labs reviewed on patient's chart from [place] - no significant cytopenias or electrolyte, renal/hepatic [...] for coordination of care (as documented) and sxhg-mi-hitg counseling of patient and/or family. [facility] - Medical History Medical History: Medical History [...] by Isaías Jordan II, DO> 09/02/22 0909 [facility] Work Phone: 1([phone]) 532-700802-13-2023 Hospital Discharge instructionsAmbulatory Orders* Proceed with Treatment Time Frame: 08/19/22, Location: Determined By Patient [facility] Work Phone: 1(810) 767-366102-13-2023 Hospital Discharge instructionsAmbulatory Orders* Proceed with Treatment Time Frame: 08/19/22, Location: Determined By Patient * Proceed with Treatment Time Frame: 09/02/22, Location: Determined By Patient * RISE Order Time Frame: 1 Week, Location: Determined By Patient [facility] Work Phone: 1(371) 182-559202-13-2023 Hospital Discharge instructionsAmbulatory Orders* Proceed with Treatment Time Frame: 08/19/22, Location: Determined By Patient * Proceed with Treatment Time Frame: 09/02/22, Location: Determined By Patient * RISE Order Time Frame: 1 Week, Location: Determined By Patient * Referral to General Surgery Time Frame: 04/04/25, Location: None Selected [facility] Work Phone: 1([phone]) 156-507302-13-2023 Hospital Discharge instructionsAmbulatory Orders* Oncology Histology Time Frame: 1 Day, Location: Determined By Patient * Proceed with Treatment Time Frame: 08/19/22, Location: Determined By Patient * Proceed with Treatment Time Frame: 09/02/22, Location: Determined By Patient * RISE Order Time Frame: 1 Week, Location: Determined By Patient [facility] Work Phone: 1([phone]) 257-823502-13-2023 Progress note Author Dayan Magallon August 19, 2022 11:20amNote Date/TimeFebruary 2022 11:14am[facility] [address] [address] Hem/Onc Follow Up Note - OP Signed Patient: Marysol Jacobson MR#: [id number] : 1965 Acct:[id number] Age/Sex: 57 / F Type: REG RCR Copies to: MD Clint Bernstein,DO~ Subjective Date/Time of Service: Date of Service: 08/19/2022 Time of Service: 11:12 Chief Complaint: Patient is here for a 1 month follow up with labs for review, prior to treatment today. No concerns voiced. 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 Labs reviewed on patient's chart from [place] - no significant cytopenias or electrolyte, renal/hepatic [...] review of systems is negative. [facility] - Medical History Medical History: Medical History [...] for coordination of care (as documented) and yacj-xh-rklw counseling of patient and/or family. Dictated By: Dayan Magallon APRN DD/ 111 Signed By: <Electronically signed by OLIVIA Magallon> 08/19/22 1120 [facility] Work Phone: 1([phone]) 511-208401-16-2023 Progress note Author Dayan Magallon July 22, 2022 11:46amNote Date/TimeJan2022 11:36[facility] [place] [address] Hem/Onc Follow Up Note - OP Signed Patient: Marysol Jacobson MR#: [id number] : 1965 Acct:[id number] Age/Sex: 57 / F Type: REG RCR Copies to: MD Clint Bernstein,DO~ Subjective Date/Time of Service: Date of Service: 07/22/2022 Time of Service: 11:34 Chief Complaint: Patient is here today for a one month follow up visit for coloncancer and go over labs. 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 Labs reviewed on patient's chart from [place] - no significant cytopenias or electrolyte, renal/hepatic [...] for coordination of care (as documented) and vqyd-ea-uuah counseling of patient and/or family. Dictated By: Dayan Magallon APRN DD/ 1134 Signed By: <Electronically signed by OLIVIA Hanley Bowen Sherita> 07/22/22 1146 [facility] Work Phone: 1(296) 764-803812-19-2022 Progress note Author Isaías Julian June 24, 2022 9:49amNote Date/TimeDecember 2021 9:42[facility] [place] [id number] Hem/Onc Follow Up Note - OP Signed Patient: Marysol Jacobson MR#: [id number] : 1965 Acct:[id number] Age/Sex: 57 / F Type: REG RCR [...] cotn folfox q2wks. f/u with me or water softener service supervisor in a month. cbc, cmp on treatemet days. cea prior to f/u. 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 Labs reviewed on patient's chart from [place] - no significant cytopenias or electrolyte, renal/hepatic [...] for coordination of care (as documented) and fiai-za-ajxq counseling of patient and/or family. 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 Labs reviewed on patient's chart from [place] - no significant cytopenias or electrolyte, renal/hepatic issues. - Summary of Therapies Summary of Therapies: FOLFOX chemotherapy (adjuvant) 1. Cycle 1, Day 1: 05/27/2022 Subjective/ROS - Narrative: As per the HPI, otherwise 10 point review of systems is negative. 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 - plan Cycle [...] for coordination of care (as documented) and felf-vx-ymtt counseling of patient and/or family. 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 She began having [...] 13, 2022, scope could not be passed ehhdpc98 cm due to a tumor in the [...] for coordination of care (as documented) and qbab-mt-hpze counseling of patient and/or family. 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 She began having [...] 13, 2022, scope could not be passed tmtvor39 cm due to a tumor in the [...] for coordination of care (as documented) and ikla-an-ugwr counseling of patient and/or family. PMF[facility] - [...] by Isaías Jordan II, DO> 05/03/22 1528 [facility] Work Phone: [phone]) 803-198210-01-2022 History general Narrative - Reported* Type Description Date Medical History Colon cancer Medical HistoryPelvic congestion syndromeSurgical HistoryBowel wuembwfdh44/2022 Surgical HistoryC -Bttnqjj7630Bsqfnedm HistoryHernia [id number] History Dodge teeth [employer] Other 09-07-2022 NoteOPERATIVE NOTE OPERATION DATE: 03/13/2022 [...] the abdomen and pelvis performed at the [facility], January 09, which was read [...] diagnosis, then she will need surgical therapy.[facility] [id number] NotePatient Education Materials Follows: Laceration Care, Adult [...] needed: ? Soap. ? Water. ? Hand mechanical design drafter. ? Bandage (dressing). ? Antibiotic ointment. ? Clean towel. How to take care of your cut Wash your hands with soap and water before touching your wound or changing your bandage. If soap and water are not available, use hand mechanical design drafter. If your doctor used stitches or yuridia: [...] off the skin. General instructions ? Take fnoo-lqh-jztqudb and prescription medicines only as told by [...] anywhere on your body. (more content not included)...[facility] complaint+Reason for visit Narrative* Chief Complaint Admit Date Sore Throat/ENT Referral December 14, 2024 9:27am Reason for Visit Admit Date Pharyngitis, chronic December 14, 2024 9:2 7am [facility] Work Phone: Evaluation + Plan note No data available for this section [facility] General Surgery Dee evaluation note* Diagnosis Onset Date Resolution Status Colon cancer acuteEncounter for chemotherapy managementacute [facility] Work Phone: evaluation note* Diagnosis Onset Date Resolution Status Abnormal LFTs acuteChemotherapy-induced peripheral neuropathyacuteColon canceracuteEncounter for chemotherapy managementacute [facility] Work Phone: evaluxjnac noteNo assessment information available [facility] Work Phone: evaluation note* Diagnosis Onset Date Resolution Status Colon cancer acuteAbnormal LFTsacuteChemotherapy-induced peripheral neuropathyacuteColon canceracuteEncounter for chemotherapy managementacuteSalivary gland hypertrophy acute [facility] Work Phone: evaluation note* Diagnosis Onset Date Resolution Status Salivary gland hypertrophy acuteAbnormal LFTsacuteChemotherapy-induced peripheral neuropathyacuteColon canceracuteEncounter for chemotherapy managementacute [facility] Work Phone: evaluation note* Diagnosis History of colon cancer- Primary Personal history of malignant neoplasm of large intestine [facility] History of colon cancer- Primary Personal history of malignant neoplasm of large intestine [facility] Diagnosis History of removal of Muvu-t-Mrdl- Primary History of colon cancer Personal history of malignant neoplasm of large intestine [facility] Diagnosis Onset Date Resolution Status Admit Date Pharyngitis, chronic acuteJun2024 9:27am [facility] Work Phone: Evaluation note* Diagnosis Globus sensation- Primary Gastrointestinal malfunction arising from mental factors LPRD (laryngopharyngeal reflux disease) Acute laryngitis, without mention of obstruction [facility] Diagnosis Onset Date Resolution Status Admit Date Abnormal LFTs acuteSeptember 2024 1:07pmChemotherapy-induced peripheral neuropathyacute March 21, 2025 1:07pmColon canceracuteSeptember 2024 1:07pmEncounter for chemotherapy managementacuteSeptember 2024 1:07pm [facility] Work Phone: Evaluation note* Diagnosis Onset Date Resolution Status Admit Date Abnormal LFTs acuteSept2024 1:09pmChemotherapy-induced peripheral neuropathyacute April 04, 2025 1:09pmColon canceracuteSeptember 2024 1:09pmEncounter for chemotherapy managementacuteSept2024 1:09pm [facility] Work Phone: Evaluation note* Diagnosis Onset Date Resolution Status Admit Date Abnormal LFTs acuteOctober 2024 11:32amChemotherapy-induced peripheral neuropathyacute May 05, 2025 11:32amColon canceracuteOctober 2024 11:32amEncounter for chemotherapy managementacuteOctober 2024 11:32amChemotherapy-induced peripheral neuropathyacuteOctober 2024 11:32amColon cancer metastasized to lungacuteOctober 2024 11:32amEncounter for chemotherapy managementacute May 05, 2025 11:32am [facility] Work Phone: Hospital Discharge instructionsAmbulatory Orders* Proceed with Treatment Time Frame: 08/19/22, Location: Determined By Patient [facility] Work Phone: Hospital Discharge instructionsAmbulatory Orders* Referral to ENT Time Frame: 11/17/23, Location: None Selected [facility] Work Phone: Hospital Discharge instructionsAmbulatory Orders* Referral to ENT Time Frame: 12/14/24, Location: None Selected [facility] Work Phone: Hospital Discharge instructions Additional [...] NOT operate machinery such as power tools, [employer] Dresd[employer] mowers, snow blowers, sewing machines, etc. for [...] problems. -Follow up with PCP. -Office number [phone]. [facility] Work Phone: Hospital Discharge instructions No data available for this section [facility] General Surgery Dee InstructionsNot on filedocumented in this encounter [facility]ructionsNot on filedocumented in this encounter [facility] SystemInstructionsNot on filedocumented in this encounter [facility] note Author Dayan Magallon June 03, 2022 8:41amNote Date/TimeNov2021 8:14[facility] [place] [address] Hem/Onc Follow Up Note - OP Signed Patient: Marysol Jacobson MR#: [id number] : 1965 Acct:[id number] Age/Sex: 57 / F Type: REG RCR [...] 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 Labs reviewed on patient's chart from [place] - no significant cytopenias or electrolyte, renal/hepatic issues. - Summary of Therapies Summary of Therapies: FOLFOX chemotherapy (adjuvant) 1. Cycle 1, Day 1: 05/27/2022 Subjective/ROS - Narrative: As per the HPI, otherwise 10 point review of systems is negative. 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 - plan Cycle [...] for coordination of care (as documented) and qzjo-xs-ilvc counseling of patient and/or family. Dictated By: Dayan Magallon APRN DD/ 3 Signed By: <Electronically signed by OLIVIA Magallon> 06/03/22840 [facility] Work Phone: Progress note Author Isaías Jordan June 24, 2022 9:49amNote Date/TimeDecemb2021 9:42[facility] [place] [address] Hem/Onc Follow Up Note - OP Signed Patient: Marysol Jacobson MR#: [id number] : 1965 Acct:[id number] Age/Sex: 57 / F Type: REG RCR [...] cotn folfox q2wks. f/u with me or water softener service supervisor in a month. cbc, cmp on treatemet days. cea prior to f/u. 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 Labs reviewed on patient's chart from [place] - no significant cytopenias or electrolyte, renal/hepatic [...] for coordination of care (as documented) and uxzb-xy-rqxu counseling of patient and/or family. [facility] - Medical History Medical History: Medical History [...] by Isaías Jordan II, DO> 06/24/22 0949 [facility] Work Phone: Progress note Author Dayan Magallon July 22, 2022 11:46amNote Date/TimeJanuary 2022 11:36[facility] [place] [address] Hem/Onc Follow Up Note - OP Signed Patient: Marysol Jacobson MR#: [id number] : 1965 Acct:[id number] Age/Sex: 57 / F Type: REG RCR Copies to: MD Clint Bernstein,DO~ Subjective Date/Time of Service: Date of Service: 07/22/2022 Time of Service: 11:34 Chief Complaint: Patient is here today for a one month follow up visit for coloncancer and go over labs. 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 Labs reviewed on patient's chart from [place] - no significant cytopenias or electrolyte, renal/hepatic [...] review of systems is negative. [facility] - Medical History Medical History: Medical History [...] for coordination of care (as documented) and dosy-da-gdtb counseling of patient and/or family. Dictated By: Dayan Magallon APRN DD/ 1134 Signed By: <Electronically signed by OLIVIA Magallon> 07/22/22 1146 [facility] Work Phone: Progress note Author Isaías Jordan September 02, 2022 9:09amNote Date/TimeFebruary 2022 8:58[facility] [place] [address] Hem/Onc Follow Up Note - OP Signed Patient: Marysol Jacobson MR#: [id number] : 1965 Acct:[id number] Age/Sex: 57 / F Type: REG RCR [...] 4 or 6 weeks with me or water softener service supervisor. - History of Present Illness Chief Complaint: Patient is here for a 2 week follow up with outside labs for review, prior to treatment today. States she is feeling remarkably better. 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 Labs reviewed on patient's chart from [place] - no significant cytopenias or electrolyte, renal/hepatic [...] for coordination of care (as documented) and ojla-rx-jbaf counseling of patient and/or family. 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 Labs reviewed on patient's chart from [place] - no significant cytopenias or electrolyte, renal/hepatic [...] from visiting her mother and family in [place]. She has no neuropathy at all. last [...] Also engorged periuterine vessels. She has seen auricular detoxification specialist. she hadtransvaginal ultrasound. This will be monitored. Her PHOTOVOLTAIC SUBCONTRACTOR has offered her a dexa scan. Her [...] january with no evidence recurrence. done at [place]. Intake Vitals/Pain Assessment 01/19/24 11:22 Height 5 [...] latanoprost 0.005% 1 drp Eye-Both QPM omega 3-wfn-ggk-fish oil 300-1,000 mg (Fish Oil) 1 cap [...] voiced at time of intake. [facility] History Attestation statement: The following information was validated with the patient. Medical History Medical History delivery delivered Colon cancer Cancer (03/26/22) COVID bleeding Glaucoma of both eyes Surgical History Surgical History [place] teeth extracted S/P hernia repair History of [...] Isaías Jordan II, DO> 01/19/24 1205 [facility] Work Phone: Progress note No data available for this section [facility] General Surgery Dee Reason for referral (narrative)No reason for referral information availableKind[facility] Work Phone: Summary Purpose Family History No [...] Encounter for chemotherapy management [facility] 2024 1:19pm Chief Complaint Admit Date EGD [...] section and content) DATE CREATED AUTHOR 05/02/2021 [facility] DATE CREATED AUTHOR AUTHOR'S ORGANIZ ATION 11/17/2022 [facility] DATE CREATED AUTHOR AUTHOR'S ORGANIZ ATION 03/27/2024 [facility] DATE CREATED AUTHOR AUTHOR'S ORGANIZ ATION 12/23/2024 [facility] DATE CREATED AUTHOR AUTHOR'S ORGANIZ ATION 04/14/2025 [facility] DATE CREATED AUTHOR AUTHOR'S ORGANIZ ATION 05/08/2025 [facility] DATE CREATED AUTHOR AUTHOR'S ORGANIZ ATION 05/12/2025 [facility] Care Teams (unrecognized sec [...] 26, 2023 End: September 26, 2023Stephaniesamantha Chanelle Turner , APRNAttending ProviderActive Start: September 26, 2023 [...] MemberRelationshipSpecialtyStart DateEnd Date Sandro Chin MD [address] [phone] PCP - GeneralFamily Medicine03/19/23Team MemberRelationshipSpecialtyStart DateEnd Date Sandro Chin MD [address] [phone] PCP - GeneralFamily Medicine03/19/23 Team Status: Inactive [...] , LUISeferring ProviderActiveStart: September 06, 2024 D[facility]NA [facility] Care ProviderActiveStart: September 06, 2024 Kristina Demboske , APRNAttending ProviderActiveStart: September 06, 2024 Team Status: Inactive Member Role Status Dates Sandro Chin MD Primary Care Provide r, Attending Provider Active Start: December 14, 2024 End: December 14, 2024Team MemberRelationshipSpecialtyStart DateEnd Date Sandro Chin MD [address] [phone] [facility]12/14/24Team MemberRelationshipSpecialtyStart DateEnd Date Sandro Chin MD [address] [place] [address] [facility]12/14/24 Team Status: Inactive Member Role Status Dates [...] December 20, 2024Team MemberRelationshipSpecialtyStart [place] [address] [place] [address] [place] [address] [facility]/14/24 Team Status: Inactive Member Role Status [...] DateEnd Date Sandro Chin MD [address] [place] [address] PCP - GeneralFamily Medicine12/14/24 Goals [...] ContactOtolaryngology Diagnoses Other seasonal allergic rhinitis Procedures AL UNLISTED EVALUATION AND MANAGEMENT SERVICE [facility] [address] [place] [address] Phone: tel: fax: Constantino Martinez MD [address] [facility] [address] [place] [address] Phone: tel: fax: Referral IDStatusReasonStart DateExpiration DateVisits RequestedVisits [id number]/10/202512/7/202511 FOR RECORDS PERTAINING TO PATIENTS WHO ARE [...] BE BASED ON THE PRIMARY CLINICAL RECORDS. [facility]. provides no warranty or guarantee of the accuracy or completeness of information in this document.
--- OUTSIDE RECORDS SUMMARY | 2025-07-01 15:00 | XMS_ITS | Clinical Summary ---
Author Organization [facility] Address [address] [place] [address] Care Team Providers Care Newsagent Name Role Phone Melissa Worthy MD Primary Care Provider [phone] Allergies Active AllergyReactionsCriticalityNoted DateCommentsCodeineGI intolerance 02/19/20237232XkcmesqpnqmEmwa58/15/2022 Other Reaction(s): Nausea, Nausea And Vomiting Patient reports it was many years ago Medications MedicationSigDispense QuantityRefillsLast FilledStart DateEnd DateStatus ondansetron (Zofran) 8 MG tablet Take 8 mg by mouth every 8 (eight) hours if needed for nauseaActive latanoprost (Xalatan) 0.005 % ophthalmic solution INSTILL 1 DROP INTO EACH EYE IN THE EVENING KSZRZLBV37/19/2024Active dorzolamide-timolol (Cosopt) 2-0.5 % ophthalmic solution INSTILL 1 DROP INTO EACH EYE TWICE DAILY AUFUNMWS52/09/2025Active brimonidine (AlphaGAN P) 0.2 % ophthalmic solution INSTILL 1 DROP INTO EACH EYE TWICE DAILY SYTBTZYC83/03/2025Active loratadine (Claritin) 10 MG tablet Daily5Active pantoprazole (ProtoNix) 40 MG EC tablet Daily5Active omega-3 1000 MG capsule capsule Take by mouth4Active famotidine (Pepcid) 20 MG tablet Indications:LPRD (laryngopharyngeal reflux disease)Take 1 tablet (20 mg) by mouth at bedtime 90 tablet 5Active Active Problems ProblemNoted DateDiagnosed DateAbnormal LFTs12/20/2024hemotherapy-induced peripheral shrfdiectz67/16/2025Colon qwzywm5612/20/2024Encounter for chemotherapy /16/6141Jvirfujoztvtws92/16/2025Pharyngitis, tgslyyr8512/20/2024 Salivary gland whuwmsrskbb18/16/2025Situational rmaxnxt6512/20/2024Female pelvic congestion hehndrcc22/17/2023laucoma of both eyes05/15/2022ostpartum bleeding ([facility])05/15/2022 Encounters DateTypeDepartmentCare MjxwNjzmdvejpci83/15/2025External Result Encounter [facility] Unsolicited Timmy Jordan, DO 06/07/2025External Result Encounter [facility] Unsolicited Timmy Jordan, DO 06/07/2025External Result Encounter [facility] Unsolicited Timmy Jordan, DO 05/23/2025External Result Encounter [facility] Unsolicited Timmy Jordan, DO 05/09/2025External Result Encounter [facility] Unsolicited Timmy Jordan, DO from Last 3 Months Social History Tobacco UseTypesPacks/DayYears UsedDateSmoking Tobacco: NeverSmokeless Tobacco: Never Tobacco Cessation:Counseling Given: Not Answered Alcohol UseStandard Drinks/WeekCommentsYes0 (1 standard drink = 0.6 oz pure alcohol)occCommentsUnknownSex and Gender InformationValueDate Recorded Sex Assigned at BirthNot on fileLegal XczTmafms01/15/2023 7:32 PM EDTGender IdentityNot on fileSexual OrientationNot on file Last Filed Vital Signs Vital SignReadingTime TakenCommentsBlood Oafdahcj764/7311112/21/2024 8:32 AM EDT Wuvou349212/21/2024 8:32 AM EDTTemperature--Respiratory Rate--Oxygen Saturation-- Inhaled Oxygen Concentration--Ncfhsm13.1 kg (159 lb)12/21/2024 8:32 AM EDTHeight 162.6 cm (5' 4 )02/19/2023 11:44 AM EDTBody Mass Index27.29002/19/2023 11:44 AM EDT Plan of Treatment Health MaintenanceDue DateLast DoneCommentsCT Ouxiasubwamy1966FIT-DNA 1966FIT1966FOBT1965 5511Kalhcpxfmualz1966Pap Smear1987 Cervical Cancer Accadrnad44/28/1996HPV/Novjki3704/03/19962663Xihsxgsjg94/28/2006 Influenza Vaccine (#1)/0344Hbunnlcyyja47/01/203311/07/2022, 2Colorectal Cancer Nwdwsgzax31/01/2033Pneumococcal Vaccine: Pediatrics (0 to 5 Years) and At-Risk Patients (6 to 64 Years)Aged OutNo longer eligible based on patient's age to complete this topic Procedures Procedure NamePriorityDate/TimeAssociated DiagnosisCommentsTOTAL PROTEIN, URINE Pjkfhgv1706/20/2025 2:33 PM EST CREATININE, RANDOM ZJMMVUrpgsgh04/15/2025 2:33 PM EST TOTAL PROTEIN, QIFJYInrluwd25/02/2025 3:02 PM EST CREATININE, RANDOM XNXOBZnpldym43/02/2025 3:02 PM EST CARCINOEMBRYONIC CRQRGWSEkgkags85/02/2025 11:11 AM EST TOTAL PROTEIN, RYZCZVouopqd13/17/2025 2:03 PM EST CREATININE, RANDOM KAKWGOrrhzzg94/17/2025 2:03 PM EST TOTAL PROTEIN, HCPRAGkdckyf47/03/2025 3:13 PM EST CREATININE, RANDOM WSFEXDigrher91/03/2025 3:13 PM EST from Last 3 Months Results * TOTAL PROTEIN, URINE (06/20/2025 2:33 PM EST) Only the most recent of4 resultswithin the time period is included. ComponentValueRef RangeTest MethodAnalysis TimePerformed AtPathologist Signature TOTAL PROTEIN, URINE<40 - 9 mg/dL12/ 4:32 PM [facility] CtrSpecimen (Source)Anatomical Location / LateralityCollection Method / VolumeCollection TimeReceived AvviOabcp60/15/2025 2:33 PM EST06/20/2025 2:41 PM EST Narrative Authorizing ProviderResult TypeResult StatusTimmy Jordan DOLAB BLOOD ORDERABLESFinal ResultPerforming OrganizationAddress[facility]/State/ZIP CodePhone Number [facility] [address] [place] [address], [facility] [address] [place] [address] * Creatinine, urine, random (06/20/2025 2:33 PM EST) Only the most recent of4 resultswithin the time period is included. ComponentValueRef RangeTest MethodAnalysis TimePerformed AtPathologist Signature CREATININE, URINE (RANDOM)9.00mg/dL06/20/2025 3:44 PM [facility] CtrComment:No reference range establishedSpecimen (Source)Anatomical Location / LateralityCollection Method / VolumeCollection TimeReceived TimeOther 06/20/2025 2:33 PM EST06/20/2025 2:41 PM EST Narrative Authorizing ProviderResult TypeResult StatusTimmy CHAVEZ URINE ORDERABLESFinal ResultPerforming OrganizationAddressCity/State/ZIP CodePhone Number [facility] [address] [place] [address], [facility] [address] [place] [address] * (ABNORMAL) CARCINOEMBRYONIC ANTIGEN (06/07/2025 11:11 AM EST)ComponentValueRef RangeTest MethodAnalysis TimePerformed AtPathologist SignatureCARCINOEMBRYONIC CZIYKPI29.6(H)0.0 - 3.0 ng/mL06/07/2025 4:30 PM [facility] CtrComment: Serial tumor marker results determined by assays using different manufacturers or methods may not be comparable. [facility] Laboratory central office repairer supervisor and method: [employer] UNICSmartzer DXI, ??2 SITE IMMUNOENZYMATIC ???SANDWICH?? ASSAY. Specimen (Source)Anatomical Location / LateralityCollection Method / Volume Collection TimeReceived TimeOtherTopography unknown / Aferdpm7706/07/2025 11:11 AM EST06/07/2025 11:14 AM EST Narrative Authorizing ProviderResult TypeResult StatusTimmy CAMERONAB BLOOD ORDERABLESFinal ResultPerforming OrganizationAddressCity/State/ZIP CodePhone Number [facility] [address] [place] [address], [facility] [address] [place] [address] from Last 3 Months Insurance Care Teams Team MemberRelationshipSpecialtyStart DateEnd Date Melissa Worthy MD [address] [place] [address] PCP - GeneralFamily Medicine12/14/24
--- OUTSIDE RECORDS SUMMARY | 2025-07-01 15:00 | XMS_ITS | Encounter Summary ---
Author Organization [facility] Address [address] [place] [address] Care Team Providers Care Quality Control Systems Manager Name Role Phone Melissa Worthy MD Primary Care Provider Encounter Details DateTypeDepartmentCare Team (Latest Contact Info)Nuisjjddefh83/15/2025External Result Encounter [facility] External [facility] Unsolicited Timmy Jordan, DO [address] [place] [address] Social History Tobacco UseTypesPacks/DayYears UsedDateSmoking Tobacco: NeverSmokeless Tobacco: NeverAlcohol UseStandard Drinks/WeekCommentsYes0 (1 standard drink = 0.6 oz pure alcohol)occCommentsUnknownSex and Gender InformationValueDate Recorded Sex Assigned at BirthNot on fileLegal OomYwvxdj88/15/2023 7:32 PM EDTGender IdentityNot on fileSexual OrientationNot on filedocumented as of this encounter Plan of Treatment Not on file documented as of this encounter Procedures Procedure NamePriorityDate/TimeAssociated DiagnosisCommentsTOTAL PROTEIN, URINE Zeymsyj3106/20/2025 2:33 PM EST CREATININE, RANDOM TYWPOJjojwvv91/15/2025 2:33 PM EST documented in this encounter Results * TOTAL PROTEIN, URINE (06/20/2025 2:33 PM EST)ComponentValueRef RangeTest MethodAnalysis TimePerformed AtPathologist SignatureTOTAL PROTEIN, URINE<40 - 9 mg/dL06/20/2025 4:32 PM [facility] CtrSpecimen (Source) Anatomical Location / LateralityCollection Method / VolumeCollection Time Received LnrsIhhqq36/15/2025 2:33 PM EST06/20/2025 2:41 PM EST Narrative Authorizing ProviderResult TypeResult StatusTimevangelina Jordan DOLAB BLOOD ORDERABLESFinal ResultPerforming OrganizationAddressCity/State/ZIP CodePhone Number [address] [address], [facility] [address] [place] [address] * Creatinine, urine, random (06/20/2025 2:33 PM EST)ComponentValueRef RangeTest MethodAnalysis TimePerformed AtPathologist SignatureCREATININE, URINE (RANDOM) 9.00mg/dL06/20/2025 3:44 PM [facility] CtrComment:No reference range establishedSpecimen (Source)Anatomical Location / Laterality Collection Method / VolumeCollection TimeReceived KhzwZdqhx74/15/2025 2:33 PM EST06/20/2025 2:41 PM EST Narrative Authorizing ProviderResult TypeResult StatusTimevangelina Jordan DOLAB URINE ORDERABLESFinal ResultPerforming OrganizationAddressCity/State/ZIP CodePhone Number [address] [place] [address], [facility] [address] [place] [address] documented in this encounter Visit Diagnoses Not on filedocumented in this encounter Care Teams Team MemberRelationshipSpecialtyStart DateEnd Date Melissa Worthy MD [address] [place] [address] PCP - GeneralFamily Medicine12/14/24documented as of this encounter
--- OUTSIDE RECORDS SUMMARY | 2025-07-01 15:00 | XMS_ITS | Clinical Summary ---
Author Organization [facility] Address [address], [address] [place] [address] Care Team Providers Care Sustainability Coordinator Name Role Phone Melissa Worthy MD Primary Care Provider [phone] Allergies Active AllergyReactionsCriticalityNoted DateCommentsCodeineOther (See Comments) 02/19/2023 Other Reaction(s): GI Disturbance HydrocodoneNausea And HkeknvjnAdnz09/15/2022 Patient reports it was many years ago Other Reaction(s): Nausea, Nausea And Vomiting Patient reports it was many years ago Medications MedicationSigDispense QuantityRefillsLast FilledStart DateEnd DateStatus Cholecalciferol (VITAMIN D3 PO) Take 1,000 mg by mouthActive brimonidine (ALPHAGAN) 0.2 % ophthalmic solution INSTILL 1 DROP INTO EACH EYE TWICE DAILY CWZPKSQU83/03/2025Active dorzolamide-timolol (COSOPT) 2-0.5 % ophthalmic solution INSTILL 1 DROP INTO EACH EYE TWICE DAILY DIRECTEDActive latanoprost (XALATAN) 0.005 % ophthalmic solution INSTILL 1 DROP INTO EACH EYE IN THE EVENING BNYFIASC57/19/2024Active ondansetron (ZOFRAN) 8 MG tablet Take 1 tablet by mouth every 8 hours as neededActive pantoprazole (PROTONIX) 40 MG tablet Take 1 tablet by mouth dailyActive BETA GLUCAN PO Take by mouthActive Active Problems ProblemNoted DateDiagnosed DateLung cuezdi6104/12/2025 Encounters DateTypeDepartmentCare YkxeFqvkekdtvwc94/07/2025Post-op Telephone [facility] Special Procedure [address] [place] [address] Tereza Hernandez RN 04/11/2025 3:58 PM EDT - 04/13/2025 11:[address] [facility] Radiology [address] [place] [address] Discharge Disposition: Home or Self Care04/11/2025 1:00 PM EDT - 04/13/2025 11:[address] [facility] CT Scan [address] [place] [address] Ender Sanchez MD Lung nodule Discharge Disposition: Home or Self Care04/11/2025Orders Only [facility] Vascular and Interventional Radiology [address] [place] [address] [place] [address] Arielle Daly MA Pre-operative laboratory examination; Lung mdeeut4104/08/2025Telephone [facility] Special Procedure [address] [place] [address] Cynthia Gallagher RN 04/06/2025 11:[address] [facility] Inter[facility] Radiology [address] [place] [address] [place] [address] Steph Casiano PA-C Pre-operative laboratory examination (Primary Dx); Lung nodule; Malignant neoplasm of colon, unspecified part of colon (HCC)04/06/2025Telephone [facility] Interventional Radiology [address] [place] [address] [place] [address] Ender Sanchez MD Procedurefrom Last 3 Months Social History Tobacco UseTypesPacks/DayYears UsedDateSmoking Tobacco: Never Assessed CommentsUnknownSex and Gender InformationValueDate RecordedSex Assigned at Htozud1904/10/2025 7:32 PM EDTLegal RptUzxbru80/23/2025 3:06 PM EDTGender Identity Ciupbe9604/10/2025 7:32 PM EDTSexual OqslsrmzbqzRprrdhen88/05/2025 7:32 PM EDT Last Filed Vital Signs Vital SignReadingTime TakenCommentsBlood Bwqixakh799/7204/11/2025 3:45 PM EDT Agqua411504/11/2025 3:45 PM YRRMjfxrebgzjf95.8 ??C (98.3 ??F)04/11/2025 1:30 PM EDTRespiratory Ofsi580404/11/2025 3:45 PM EDTOxygen Lzszkpajtl76%04/11/2025 3:45 PM EDTInhaled Oxygen Concentration--Sycphu61.2 kg (157 lb)04/11/2025 1:30 PM EDT Bopihb581.6 cm (5' 4 )04/11/2025 1:30 PM EDTBody Mass Index26.9504/11/2025 1:30 PM EDT Plan of Treatment Health MaintenanceDue DateLast DoneCommentsDepression Rvmeji3604/03/1978HIV screen 1981Hepatitis C blgcwc5404/03/1984DTaP/Tdap/Td vaccine (1 - Tdap)1985 Hepatitis B vaccine (1 of 3 - 19+ 3-dose series)1985Pap smear1987 Cervical cancer cioblz7404/03/1996HPV (without or with Pap)1996Diabetes ejhcxe6804/03/2001Breast cancer sjguwr1004/03/20062016Wcmmjq28/28/2006Colonoscopy 2011Colorectal Cancer Qolvoc0304/03/2011FIT/FOBT: Average risk2011 Fecal-DNA (Cologuard): Average risk2011Sigmoidoscopy/CT colonography 2011Pneumococcal 50+ years Vaccine (1 of 1 - PCV)2016Shingles vaccine (1 of 2)2016Flu vaccine (#1)/OVID-19 Vaccine (2 - season)/04/2022Hepatitis A vaccineAged OutNo [...] Procedures Procedure NamePriorityDate/TimeAssociated DiagnosisCommentsXR CHEST (2 VW) Abkgyne8604/11/2025 4:[address] NEEDLE BIOPSY LUNG PERCUTANEOUS W IMAGING CIOGLLEPNljrjzl88/06/2025 2:54 PM EDT Lung nodule SURGICAL QUSUWQUCXVLZG89/06/2025 9:39 AM EDT from Last 3 Months Results * XR CHEST (2 VW) (04/11/2025 4:06 PM EDT)Anatomical RegionLateralityModality ChestComputed RadiographySpecimen (Source)Anatomical Location / Laterality Collection Method / VolumeCollection TimeReceived WvkiFvwet87/06/2025 4:08 PM EDT Impressions 04/11/2025 4:08 PM [...] by Ender Sanchez Authorizing ProviderResult TypeResult StatusCharsen Sanchez MDSalena DIAGNOSTIC IMAGING ORDERABLESFinal Result * CT NEEDLE [...] signed by Ender Sanchez Authorizing ProviderResult TypeResult StatusSteph PICKERINGCIMSalena CT ORDERABLES Final Result * Surgical Pathology (04/11/2025 9:39 AM EDT)Specimen (Source)Anatomical Location / LateralityCollection Method / VolumeCollection TimeReceived Time 04/11/2025 9:39 AM EDT1 9:39 AM EDT Narrative [facility] - 04/14/2025 12:[address] [facility] ? [address] ? [place], [place] ??[address] ? [phone] FINAL SURGICAL PATHOLOGY REPORT Patient Name: ??MARYSOL GARDNER ?Accession No: ??[id number] Age Sex: ?? 1965 ? Location: ?DIS Account No: ?[id number] ?Collected: ? 04/11/2025 Med Rec No: ?[id number] ? Received: ?04/12/2025 Attend Phys: ?? ENDER SANCHEZ ?Completed: ? 04/14/2025 Perform Phys: ??TIMMY GARCIA FINAL DIAGNOSIS: RIGHT UPPER LOBE LUNG [...] A LUNG PRIMARY. CLINICAL CORRELATION IS NECESSARY. [facility] CLINICAL INFORMATION: Results to Dr. Garcia. Right [...] biopsy bag where the core is present. ?[facility] CPT: 31721 X1 ?? 00891 X2 ?? 14106 X1 Arnel DONNELLY M.D. ??04/14/2025 Electronically signed out by ? Page 1of 1 Authorizing ProviderResult TypeResult StatusTimmy Garcia PATHOLOGY/CYTOLOGY ORDERABLESFinal ResultPerforming OrganizationAddress City/State/ZIP CodePhone Number [facility] [address] [facility] [place] [address], [facility] [phone] from Last 3 Months Insurance Care Teams Team MemberRelationshipSpecialtyStart DateEnd Date Melissa Worthy MD [address] [place] [address] PCP - GeneralFamily Nxoddzjw95/6/25
--- OUTSIDE RECORDS SUMMARY | 2025-07-01 15:00 | XMS_ITS | Clinical Summary ---
Author Organization [facility] Address [id number] [address] [place] [address] Care Team Providers Care Die Forger Name Role Phone Melissa Worthy MD Primary Care Provider [phone] Allergies Active AllergyReactionsCriticalityNoted DateCommentsCodeineGI Disturbance 02/19/2023HydrocodoneNausea And IvftgkdqIiak77/15/2022 Patient reports it was many years ago [...] TAKE 1 CAPSULE BY MOUTH ONCE DAILY ILTQAL5502/19/2023ctive omeprazole (PriLOSEC) 20 mg capsule PATIENT REPORTS NEEDED 01/16/2023ctive omega 5-nto-ktq-fish oil (Fish OiL) 300-1,000 mg capsule Take by mouth.Active glucosamine-chondroitin 500-400 mg tablet Take 1 tablet by mouth 3 (three) times a day.Active Active Problems ProblemNoted DateDiagnosed DateFemale pelvic congestion xgxjwuvr39/17/2023 Glaucoma of both eyes05/15/2022ostpartum okpkyngg37/09/2022 Encounters DateTypeDepartmentCare GxkiNfdyfazfudp16/06/2025Telephone [facility] [address] [place] [address] Yoselin Lo RMA from Last [...] InformationValueDate RecordedSex Assigned at BirthNot on fileLegal NovHlopdx55/08/2022 3:24 PM EDTGender IdentityNot on fileSexual OrientationNot on file Last Filed Vital Signs Vital SignReadingTime TakenCommentsBlood Zzojipur451/6009 11:29 AM EDT Tghrd2682 11:29 AM KADHunwkkytftz09.2 ??C (97.1 ??F)06/07/2022 10:01 AM ESTRespiratory Rate--Oxygen Saturation--Inhaled Oxygen Concentration--Qadagw33.7 kg (160 lb 3.2 oz)03/25/2024 11:29 AM KFUYrcyst657.6 cm (5' 4 )03/25/2024 11:29 AM EDTBody Mass Index27.509 11:29 AM EDT Plan of Treatment Health MaintenanceDue DateLast DoneCommentsDepression Gezsxejuw58/28/1978 DTaP,Tdap and Td Vaccines (1 - Tdap)1985Pap Smear1987Zoster (Shingles) Vaccine (1 of 2)2016COVID-19 Vaccine ( - season) , 04/27/2021, 08/02/2020, Additional history existsInfluenza Wmiptqj7203/07/2025dult BMI Aadohtloj05/Tobacco Screening olonoscopy/07/2022, 03/13/2022 Medical Devices Not on [...] MemberRelationshipSpecialtyStart DateEnd Date Melissa Worthy MD [address] [place] [address] PCP - GeneralFamily Medicine03/19/23
[2025-07-01 15:25] LABS: Hematocrit 37.2 % (36.0-48.0); Hemoglobin 11.8 g/dL (12.0-16.0); Immature Granulocytes Abs Auto 0.02 10^3/uL (0.00-0.03); Immature Granulocytes Pct Auto 0.4 % (0.0-0.5); Lymphocytes Absolute Auto 2.0 10^3/uL (1.2-3.8); Mean Corpuscular HGB Conc 31.7 g/dL (29.9-35.2); Mean Corpuscular Hemoglobin 32.3 pg (26.7-34.0); Mean Corpuscular Volume 101.9 fL (81.0-99.0); Platelet Count 270 10^3/uL (150-450); Red Blood Count 3.65 10^6/uL (4.20-5.40); White Blood Count 4.7 10^3/uL (4.0-11.0)
[2025-07-01 15:36] LABS: Alanine Aminotransferase 30 U/L (14-59); Albumin Globulin Ratio 0.9; Albumin Level 3.5 g/dL (3.4-5.0); Alkaline Phosphatase 95 U/L (46-116); Anion Gap 12.6; Aspartate Amino Transferase 17 U/L (15-37); Blood Urea Nitrogen 14.0 mg/dL (7.0-18.0); Calcium 9.5 mg/dL (8.5-10.1); Carbon Dioxide 27.7 mmol/L (21.0-32.0); Chloride 105 mmol/L (98-107); Estimated GFR (African America >60 (>=60 mL/min/1.73m^2); Estimated GFR (Non-African Ame >60 (>=60 mL/min/1.73m^2); Globulin 3.7 g/dL; Glucose 106 mg/dL (74-106); Potassium 4.3 mmol/L (3.5-5.1); Sodium 141 mmol/L (136-145); Total Protein 7.2 g/dL (6.4-8.2)
== END 2025-07-01 14:55 | disposition home or self-care (01) ==
LOC: LAB 14:56
PROVIDERS: PCP Family Medicine; Visit Provider Internal Medicine
DX: C18.9 Malignant neoplasm of colon, unspecified (principal)
CPT/HCPCS: 36415; 80053; 85025